=== PATIENT | female | born 1935 | race Caucasian/White ===

== ENCOUNTER → 2017-06-16 10:06 | Outpatient (CLI) | payer MEDICARE, SELFPAY ==
[2017-06-16 10:08] VITALS: BP 129/67; PULSE 86; RESP 18; TEMP 36.6; O2SAT 99; BMI 24.2
== END ==
PROVIDERS: Family Provider Family Medicine; PCP Family Medicine; Visit Provider Internal Medicine Rheumatology
DX: M06.9 Rheumatoid arthritis, unspecified (principal)
CPT/HCPCS: 96413; J7050; J0129

== ENCOUNTER → 2017-06-25 11:41 | Outpatient (CLI) | payer MEDICARE, SELFPAY ==
--- NOTE | 2017-06-25 11:44 | HPBI_ITS ---
MAMMOGRAPHY - UNILATERAL DIAGNOSTIC: LEFT BREAST REASON FOR EXAM: Female, 81 years old. Prior right mastectomy and radiation treatment. PERTINENT HISTORY: Personal history of breast cancer. TECHNIQUE: Digital unilateral breast jelena (3D mammographic acquisition) in the CC and MLO projections. 2-D mediolateral oblique (MLO) and craniocaudad (CC) views of both breasts were obtained. CAD: Full Field Digital Mammography with Computer Added Detection was performed. COMPARISON: Comparison is made with prior study dated June 23, 2016 and June 21, 2015. FINDINGS: Breast Composition: There are scattered areas of fibroglandular density. There are no dominant masses or suspicious calcifications. A port is seen overlying the medial axillary region of the left breast. No other significant abnormalities are identified. There has been no significant change since the prior study. [facility]CRN W/CAD IMPRESSION: Stable unilateral diagnostic mammogram. One year follow-up mammogram recommended. (A) ASSESSMENT CATEGORY: BIRADS Category 2: Benign. A letter regarding these results will be sent to the patient by the facility within 30 days. Approximately 10% of breast cancers are not detected by mammography. A normal mammogram should not delay biopsy of a clinically suspicious abnormality. Electronically Signed: Aneudy Cardenas MD at 14:11 EST Tel [phone], Service support ,
== END ==
PROVIDERS: Family Provider Family Medicine; PCP Family Medicine; Visit Provider Nurse Practitioner Family
DX: Z13.1 Encounter for screening for diabetes mellitus (principal); Z85.3 Personal history of malignant neoplasm of breast
CPT/HCPCS: 77061; 77067; G0279

== ENCOUNTER → 2017-06-25 12:27 | Outpatient (CLI) | payer MEDICARE, SELFPAY ==
[2017-06-25 13:56] LABS: Absolute Neutrophil Count 3.6 X10^3/uL (2.0-7.7); Basophil# 0.01 X10^3/uL; Basophil% 0.2 % (0-1); Eosinophil# 0.09 X10^3/uL; Eosinophils% 1.7 % (0-5); Hematocrit 37.4 % (37-47); Hemoglobin 12.5 g/dl (12.0-15.0); Lymphocyte % 17.3 % (19-41); Mean Corp Hgb Conc 33.4 g/gl (32-36); Mean Corpuscular Hgb 29.9 pg (27.0-32.0); Mean Corpuscular Volume 89.5 fL (81-99); Mean Platelet Vol. 11.2 fl (6.2-12.0); Monocyte# 0.61 X10^3/uL; Monocyte% 11.7 % (0-10); Neutrophil # 3.59 X10^3/uL (2.7-7.7); Neutrophil % 69.1 % (47-70); Platelet Count 180 K/mm3 (150-450); RBC Distribution Width CV 13.5 % (11.6-14.6); RBC Distribution Width SD 43.2 fl (35.1-43.9); Red Blood Count 4.18 M/mm3 (4.2-5.4); White Blood Count 5.2 K/mm3 (4.4-11.0)
[2017-06-25 13:59] LABS: POSITIVE COUNT NO; POSITIVE DIFFERENTIAL NO; POSITIVE MORPHOLOGY NO
[2017-06-25 14:27] LABS: ALB/GLOB Ratio 1.1 RATIO (0.9-2.4); AST(SGOT) 18 U/L (15-37); Alanine Aminotransfer ALT/SGPT 21 U/L (13-56); Albumin, Serum 3.6 g/dL (3.2-5.0); Alkaline Phosphatase 61 U/L (45-117); Anion Gap 6 (5-15); BUN 26 mg/dL (7-18); BUN/Creat Ratio 39.9 RATIO (10-20); Calcium,Total 9.4 mg/dL (8.5-10.1); Chloride 107 mmol/L (98-107); Creatinine, Serum 0.65 mg/dL (0.55-1.02); EST Glomerular Filtration Rate 93 mL/min (>60); Est Glom Filt Rate - Afr Amer 112 mL/min (>60); Globulin 3.2 g/dL (2.2-4.2); Glucose 90 mg/dL (74-106); Potassium 4.2 mmol/L (3.5-5.1); Protein, Total 6.8 g/dL (6.4-8.2); Sodium Level 143 mmol/L (136-145)
== END ==
PROVIDERS: Family Provider Family Medicine; PCP Family Medicine; Visit Provider Internal Medicine Rheumatology
DX: M05.70 Rheumatoid arthritis with rheumatoid factor of unspecified site without organ or systems involvement (principal); M50.30 Other cervical disc degeneration, unspecified cervical region; Z85.3 Personal history of malignant neoplasm of breast; Z90.12 Acquired absence of left breast and nipple; Z79.899 Other long term (current) drug therapy; Z12.31 Encounter for screening mammogram for malignant neoplasm of breast; Z13.1 Encounter for screening for diabetes mellitus
CPT/HCPCS: 36415; 77061; 77067; 80053; 85025; G0279

== ENCOUNTER → 2017-07-14 10:55 | Outpatient (CLI) | payer MEDICARE, SELFPAY ==
[2017-07-14 10:59] VITALS: BP 134/64; PULSE 84; RESP 18; TEMP 36.7; O2SAT 99; BMI 24.2
== END ==
PROVIDERS: Family Provider Family Medicine; PCP Family Medicine; Visit Provider Internal Medicine Rheumatology
DX: M06.9 Rheumatoid arthritis, unspecified (principal)
CPT/HCPCS: 96413; J7050; A4216; J0129

== ENCOUNTER 2017-07-19 14:28 | Emergency (ER) | payer MEDICARE, SELFPAY ==
[2017-07-19 14:30] VITALS: BP 161/70; PULSE 86; RESP 16; TEMP 36.5; O2SAT 98; BMI 26.3
--- NOTE | 2017-07-19 14:58 | CT_ITS ---
STUDY: CT BRAIN WITHOUT CONTRAST REASON FOR EXAM: Female, 81 years old. Nasal laceration following a fall. History of breast cancer. RADIATION DOSAGE (If Supplied By Facility): CTDIvol = ( 44.99 ) mGy, DLP = ( 745.49 ) mGycm TECHNIQUE: Transaxial CT imaging of the brain was performed without administration of intravenous contrast material. Individualized dose optimization techniques were used for this CT. COMPARISON: None. FINDINGS: Normal soft tissue structures. Normal calvarium. There is mild cerebral atrophy with widening of the extra-axial spaces and ventricular dilatation. Normal white matter tracts of the cerebral hemispheres. Normal basal ganglia and thalami. Normal brainstem. Normal cerebellum. There is no intracranial hemorrhage. There are no findings of an acute ischemic infarction. Atherosclerotic calcification of the cavernous portions of the internal carotid arteries bilaterally. Nondisplaced nasal fracture. CT/Brain/Head without Contrast IMPRESSION: Chronic involutional changes of the brain. Nondisplaced nasal fracture. Electronically Signed: Aneudy Cardenas MD at 15:51 EDT Tel [phone], Service support ,
[2017-07-19] MEDS: fentaNYL 100 MCG/2 ML Ampul 50 MCG IV (15:16)
--- NOTE | 2017-07-19 15:40 | RAD_ITS ---
STUDY: X-RAY - RIGHT SHOULDER REASON FOR EXAM: Female, 81 years old. Fall, shoulder pain. TECHNIQUE: 1 frontal view(s) of the shoulder. COMPARISON: Portable AP erect chest x-ray September 23, 2013. FINDINGS: There is an medial dislocation of the glenohumeral articulation. 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 Normal acromion. Normal humeral head and visualized proximal humerus. Mild periarticular spurring of the glenoid noted. Surgical clips again seen in the soft tissues of the right lateral chest wall. Small lucency at the superior interface of the greater tubercle and humeral head raises question of a cortical impaction fracture. Normal visualized pulmonary apex. RAD/Shoulder min 2 Views IMPRESSION: Medial dislocation of the shoulder with question of small cortical impaction fracture at the interface of the greater tubercle and humeral head. Electronically Signed: Osvaldo Rebolledo MD at 16:18 EDT , Service support ,
[2017-07-19] MEDS: Diphth,Pertuss(Acell),Tet Vac 0.5 ML Vial IM (15:50)
[2017-07-19 16:36] VITALS: BP 144/60; BP 153/54; BP 162/65; PULSE 88; PULSE 90; PULSE 91; RESP 13; RESP 16; RESP 23; O2SAT 100
--- NOTE | 2017-07-19 16:37 | RAD_ITS ---
STUDY: X-RAY - RIGHT SHOULDER REASON FOR EXAM: Female, 81 years old. Post reduction. TECHNIQUE: 2 view(s) of the shoulder. COMPARISON: Frontal view of the right shoulder 1537 hours. FINDINGS: Post reduction, the glenohumeral articulation is return to anatomic alignment. There is stable minor degenerative arthrosis of the acromioclavicular joint. Normal acromion. Normal humeral head and visualized proximal humerus. There are degenerative changes of the visualized lower cervical spine. There is no demonstrated fracture. Normal visualized pulmonary apex. Surgical clips again seen in the soft tissues of the right lateral chest wall. A left chest wall MediPort is noted, its catheter tip in the low superior vena cava. RAD/Shoulder min 2 Views IMPRESSION: Right shoulder joint in anatomic alignment postreduction. No demonstrated fracture. Electronically Signed: Osvaldo Rebolledo MD at 17:44 EDT , Service support ,
[2017-07-19 16:51] VITALS: BP 138/74; PULSE 90; RESP 14; O2SAT 99
[2017-07-19] MEDS: Propofol 200 MG/20 ML Vial IV BOLUS (16:55)
--- NOTE | 2017-07-19 17:08 | ED.VISSUMM ---
- ER Visit Summary Date of Service: 07/19/17 Chief Complaint: Fall History of Present Illness: The patient is a [address] Hall. She reports that she tripped walking through the parking lot. She reports that she did hit her face, but did not have a loss of consciousness. She has right shoulder pain that is 5 out of 10 at rest and 10 out of 10 with movement. She has left knee pain is 1 out of 10. She denies any neck, back, wrist, or hip pain. She is unsure when her last tetanus shot was. Physical Examination: Vitals: Stable. Afebrile. Face: Abrasion over the proximal half of her nose with 1 cm laceration over the bridge of her nose. No active bleeding. No septal hematoma. Neck: No vertebral tenderness. Full ROM without difficulty. Cleared by NEXUS criteria. Back: No vertebral tenderness. General: A&O x 3. NAD. Cardiovascular exam: Regular rate and rhythm, no murmur, rub or gallop. Respiratory exam: Chest nontender. No crepitus. Clear to auscultation bilaterally. No wheezes or stridor. Abdominal exam: Soft, nontender, nondistended, normal bowel sounds. No pain in RUQ or LUQ specifically. No peritoneal signs. Extremity: Severe tenderness palpation over her right shoulder with an obvious deformity. He is neurovascular intact distally. Test Results: CT brain shows a nondisplaced nasal fracture and chronic changes. No intracranial hemorrhage. Right shoulder x-ray shows an anterior dislocation without fracture. Repeat x-ray shows a reduction. Emergency Department Course and Treatment: Patient was given a dose of fentanyl IV. She then had procedural sedation undertaken with propofol and her shoulder was reduced. She tolerated this well. She also had a laceration repair while she was sedated. Treatment Plan: She will be discharged instructions to follow-up Dr. Wilian Jackson 1 week for another exam. Placed on Percocet and Colace at home. Return to the emergency department for any worsening symptoms. Disposition: To home in improved and stable condition. Impression: 1. Fall. 2. Right shoulder dislocation. 3. Laceration of nose, 1 cm, repaired. 4. Procedural sedation. 5. Reduction right shoulder. Procedure note: Wound was cleansed with chlorhexidine soap. Anesthetized with 1% lidocaine without epinephrine. Copiously irrigated with normal saline. Wound was explored there is no foreign material present. It was closed with 3 simple interrupted 5-0 rapid Vicryl sutures. The patient tolerated it well. This note was generated with [employer] dictation software. It may contain incorrect words, spelling, and punctuation that were not noted in review of the chart prior to signing ED Disposition - Plan for ED Patient: Disposition: [facility] Chief Complaint: Fall Instructions: ED Dislocation Shoulder Redu Prescriptions: Oxycodone HCl/Acetaminophen [Percocet 5/325] 1 tablet PO Q6H PRN PRN 5 Days #20 tablet PRN Reason: Pain Docusate Sodium [Colace] 100 mg PO DAILY #20 capsule Referrals: Wilian Jackson MD [STAFF PHYSICIAN] - 1 Week
[2017-07-19 17:54] VITALS: BP 135/80; PULSE 86; RESP 12; O2SAT 100
== END 2017-07-19 18:04 | disposition short-term general hospital (02) ==
PROVIDERS: Emergency Provider Emergency Medicine; Family Provider Family Medicine; PCP Family Medicine
DX: S43.084A Other dislocation of right shoulder joint, initial encounter (principal); S02.2XXA Fracture of nasal bones, initial encounter for closed fracture; S01.21XA Laceration without foreign body of nose, initial encounter; W18.30XA Fall on same level, unspecified, initial encounter; Y93.01 Activity, walking, marching and hiking; Y92.481 Parking lot as the place of occurrence of the external cause; M06.9 Rheumatoid arthritis, unspecified; Z79.899 Other long term (current) drug therapy
CPT/HCPCS: 12011; 23650; 70450; 73030; 90715; 96374; 99152; 99285; J7030; A4216

== ENCOUNTER → 2017-08-11 | Outpatient (CLI) | payer MEDICARE, SELFPAY ==
[2017-08-11 10:47] VITALS: BP 139/64; PULSE 86; RESP 16; TEMP 36.8; O2SAT 99; BMI 24.2
== END | disposition home or self-care (01) ==
PROVIDERS: Family Provider Family Medicine; PCP Family Medicine; Visit Provider Internal Medicine Rheumatology
DX: M06.9 Rheumatoid arthritis, unspecified (principal)
CPT/HCPCS: 96413; J7050; A4216; J0129

== ENCOUNTER 2017-09-01 12:30 | Outpatient (RCR) | payer MEDICARE, SELFPAY ==
--- NOTE | 2017-07-28 14:05 | HP.PTEVAL_ITS ---
Patient's Visit Information ROBERTO RASMUSSEN is a 81 year old F referred to Physical Therapy by MD NEMESIO King with a diagnosis of R ant shoulder dislocation. Date of Evaluation: 07/28/17 Physical Therapist: David Fernandes, PT, - Visit Plan Frequency: 2-3x /Week Duration: 4-6 Weeks Plan: R shoulder pulleys, AROM/MOBS, scap stab ex's, rot cuff strengthening, and HEP - Subjective Subjective: Pt reports she slipped in [place] approximately 1 week ago which resulted in her landing on her face and R shoulder. Pt reports multiple contusions to nose and face, and also notes she dislocated her R shoulder. 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 Pt reports she was in a shoulder wrap for 3 days, and then has been out since. Pt reports she was told to try PT first, and then see if an MRI was necessary. Pt reports her shoulder has not really improved since DOI. Pt notes sleep diff secondary to pain. Pt is R hand dom. Pt notes some numbness in R UE since DOI. Pt reports she is limited with all IADL's secondary to lack of ROM. - Pain R shoulder Pain Intensity (Out of 10): 0 Pain Intensity Range: 3 - Objective Neuro: B UE sensation is WNL to light touch. B bicpes reflex= 2/3. Palpation: Pt is not sore with palpation to R shoulder. No obvious deformities presesent at this time. ROM: L shoulder flex= 155, abd= 165, ER= 65, IR WNL; R shoulder flex= 25, abd= 0, ER= 50, IR severely limited. MMT: L shoulder 5/5 throughout while R shoulder 1/5 and painful. Special test: Unable to assess other than a pos drop arm test - Goals Goal 1:: Decrease R shoulder pain x 50% to aid with sleep Goal Time Frame: 4-6 Weeks Goal 2:: Increase R shoulder strength x 1 grade to aid with IADL's Goal Time Frame: 4-6 Weeks Goal 3:: Increase R shoulder flex and abd ROM x 50 degrees to aid with overhead lifting Goal Time Frame: 4-6 Weeks Goal 4:: I with HEP Goal Time Frame: 4-6 Weeks - Rehabilitation Potential Physical Therapy Diagnosis: R shoulder pain, weakness, and limited ROM secondary to R shoulder dislocation Rehabilitation Potential: Good - Anticipated Interventions Thank you for the opportunity to evaluate your patient. For Medicare and Medicare HMO plans, please review the plan of care and approve it. It will need to be FAXED BACK to us at [phone] for Medicare purposes. Please let me know if there are questions or concerns regarding this plan of care. Physician Signature: Date:
--- NOTE | 2017-09-07 09:19 | HP.PT.NRP ---
HP - Discharge Summary (1) - Patient Information ROBERTO RASMUSSEN was seen in my office for initial evaluation on 07/28/17. The following Plan of Care was established for this patient: Initial Frequency: 2-3x /Week Initial Duration: 4-6 Weeks This patient was last seen in our office . Pertinent comments regarding their Physical therapy will appear below: Pt phoned the clinic on todays date noting that she wanted to cancel her remaining appointments and just exercise from her home. Pt is therefore discontinued at this time. At this point I will be discontinuing this patient from physical therapy. I would be happy to see this patient again in the future if found appropriate by the physician. Thank you! David Fernandes, PT,
== END 2017-09-01 19:00 | disposition home or self-care (01) ==
LOC: PT 12:30
PROVIDERS: Family Provider Family Medicine; PCP Family Medicine; Visit Provider Specialist
DX: S43.014D Anterior dislocation of right humerus, subsequent encounter (principal); M06.9 Rheumatoid arthritis, unspecified
CPT/HCPCS: 96413; 97110; 97161; 97530; J7050; A4216; J0129

== ENCOUNTER → 2017-09-08 11:01 | Outpatient (CLI) | payer MEDICARE, SELFPAY ==
[2017-09-08 11:03] VITALS: BP 139/75; PULSE 78; RESP 16; TEMP 36.4; O2SAT 95; BMI 23.6
== END ==
PROVIDERS: Family Provider Family Medicine; PCP Family Medicine; Visit Provider Internal Medicine Rheumatology
DX: M06.9 Rheumatoid arthritis, unspecified (principal)
CPT/HCPCS: 96413; J7050; A4216; J0129

== ENCOUNTER → 2017-09-15 11:19 | Outpatient (CLI) | payer MEDICARE, SELFPAY ==
[2017-09-15 14:26] LABS: Absolute Lymphocyte Count 0.98 X10^3/ul (0.83-4.51); Absolute Neutrophil Count 2.4 X10^3/uL (2.0-7.7); Basophil# 0.01 X10^3/uL; Basophil% 0.3 % (0-1); Eosinophil# 0.07 X10^3/uL; Eosinophils% 1.8 % (0-5); Hematocrit 39.5 % (37-47); Hemoglobin 13.1 g/dl (12.0-15.0); Lymphocyte # 0.98 X10^3/ul (4.0); Lymphocyte % 25.1 % (19-41); Mean Corp Hgb Conc 33.2 g/gl (32-36); Mean Corpuscular Hgb 30.2 pg (27.0-32.0); Mean Platelet Vol. 11.1 fl (6.2-12.0); Monocyte# 0.41 X10^3/uL; Monocyte% 10.5 % (0-10); Neutrophil # 2.44 X10^3/uL (2.7-7.7); Neutrophil % 62.3 % (47-70); Platelet Count 180 K/mm3 (150-450); Red Blood Count 4.34 M/mm3 (4.2-5.4); White Blood Count 3.9 K/mm3 (4.4-11.0)
[2017-09-15 14:27] LABS: POSITIVE COUNT NO; POSITIVE DIFFERENTIAL NO; POSITIVE MORPHOLOGY NO
[2017-09-15 14:46] LABS: ALB/GLOB Ratio 1.2 RATIO (0.9-2.4); AST(SGOT) 20 U/L (15-37); Alanine Aminotransfer ALT/SGPT 16 U/L (13-56); Albumin, Serum 3.8 g/dL (3.2-5.0); Alkaline Phosphatase 55 U/L (45-117); Anion Gap 5 (5-15); BUN 20 mg/dL (7-18); BUN/Creat Ratio 27.1 RATIO (10-20); Calcium,Total 9.1 mg/dL (8.5-10.1); Chloride 107 mmol/L (98-107); Creatinine, Serum 0.74 mg/dL (0.55-1.02); EST Glomerular Filtration Rate 80 mL/min (>60); Est Glom Filt Rate - Afr Amer 97 mL/min (>60); Globulin 3.2 g/dL (2.2-4.2); Glucose 89 mg/dL (74-106); Potassium 4.3 mmol/L (3.5-5.1); Sodium Level 140 mmol/L (136-145)
== END ==
PROVIDERS: Family Provider Family Medicine; PCP Family Medicine; Visit Provider Internal Medicine Rheumatology
DX: M05.70 Rheumatoid arthritis with rheumatoid factor of unspecified site without organ or systems involvement (principal); M50.30 Other cervical disc degeneration, unspecified cervical region; Z85.3 Personal history of malignant neoplasm of breast; Z79.899 Other long term (current) drug therapy
CPT/HCPCS: 36415; 80053; 85025

== ENCOUNTER → 2017-10-06 10:30 | Outpatient (CLI) | payer MEDICARE, SELFPAY ==
--- NOTE | 2017-10-06 10:30 | DT_ITS ---
This patient was seen during an EMR downtime October 04, 2017 - October 11, 2017. This patient may have a combination of paper and electronic documentation or all paper documentation. All documentation is viewable within the e-chart portion of [employer] for each patient visit.
== END ==
PROVIDERS: Family Provider Family Medicine; PCP Family Medicine; Visit Provider Internal Medicine Rheumatology
DX: M06.9 Rheumatoid arthritis, unspecified (principal)
CPT/HCPCS: J7040; A4216; J0129

== ENCOUNTER → 2017-11-02 08:48 | Outpatient (CLI) | payer MEDICARE, SELFPAY ==
[2017-11-02 08:55] VITALS: BP 136/73; PULSE 84; RESP 18; TEMP 36.6; O2SAT 99; BMI 23.4
== END ==
PROVIDERS: Family Provider Family Medicine; PCP Family Medicine; Visit Provider Internal Medicine Rheumatology
DX: M06.9 Rheumatoid arthritis, unspecified (principal)
CPT/HCPCS: 96413; J7050; A4216; J0129

== ENCOUNTER → 2017-12-01 10:48 | Outpatient (CLI) | payer MEDICARE, SELFPAY ==
[2017-12-01 11:13] VITALS: BP 137/73; PULSE 84; RESP 18; TEMP 37; O2SAT 98; BMI 23.4
[2017-12-01 11:38] LABS: Absolute Lymphocyte Count 0.98 X10^3/ul (0.83-4.51); Absolute Neutrophil Count 2.2 X10^3/uL (2.0-7.7); Basophil# 0.01 X10^3/uL; Basophil% 0.3 % (0-1); Eosinophils% 2.7 % (0-5); Hematocrit 37.6 % (37-47); Hemoglobin 12.4 g/dl (12.0-15.0); Lymphocyte # 0.98 X10^3/ul (4.0); Lymphocyte % 26.7 % (19-41); Mean Corpuscular Hgb 29.9 pg (27.0-32.0); Mean Corpuscular Volume 90.6 fL (81-99); Mean Platelet Vol. 10.8 fl (6.2-12.0); Monocyte# 0.38 X10^3/uL; Monocyte% 10.4 % (0-10); Neutrophil % 59.9 % (47-70); POSITIVE COUNT NO; POSITIVE DIFFERENTIAL NO; POSITIVE MORPHOLOGY NO; Platelet Count 144 K/mm3 (150-450); RBC Distribution Width CV 13.9 % (11.6-14.6); RBC Distribution Width SD 45.9 fl (35.1-43.9); Red Blood Count 4.15 M/mm3 (4.2-5.4); White Blood Count 3.7 K/mm3 (4.4-11.0)
[2017-12-01 11:50] LABS: ALB/GLOB Ratio 1.2 RATIO (0.9-2.4); AST(SGOT) 19 U/L (15-37); Alanine Aminotransfer ALT/SGPT 19 U/L (13-56); Albumin, Serum 3.7 g/dL (3.2-5.0); Alkaline Phosphatase 50 U/L (45-117); Anion Gap 5 (5-15); BUN 18 mg/dL (7-18); BUN/Creat Ratio 21.7 RATIO (10-20); Calcium,Total 9.1 mg/dL (8.5-10.1); Chloride 107 mmol/L (98-107); Creatinine, Serum 0.83 mg/dL (0.55-1.02); EST Glomerular Filtration Rate 70 mL/min (>60); Est Glom Filt Rate - Afr Amer 85 mL/min (>60); Estimated Creatinine Clearance 47.83 ml/min; Glucose 98 mg/dL (74-106); Protein, Total 6.7 g/dL (6.4-8.2); Sodium Level 142 mmol/L (136-145)
== END ==
PROVIDERS: Family Provider Family Medicine; PCP Family Medicine; Visit Provider Internal Medicine Rheumatology
DX: M05.70 Rheumatoid arthritis with rheumatoid factor of unspecified site without organ or systems involvement (principal); Z79.899 Other long term (current) drug therapy; M50.30 Other cervical disc degeneration, unspecified cervical region; Z85.3 Personal history of malignant neoplasm of breast
CPT/HCPCS: 80053; 85025; 96413; J7050; A4216; J0129

== ENCOUNTER → 2017-12-29 10:52 | Outpatient (CLI) | payer MEDICARE, SELFPAY ==
[2017-12-29 12:01] VITALS: BP 133/61; PULSE 77; RESP 16; TEMP 36.6; O2SAT 99; BMI 23.6
== END ==
PROVIDERS: Family Provider Family Medicine; PCP Family Medicine; Visit Provider Internal Medicine Rheumatology
DX: M06.9 Rheumatoid arthritis, unspecified (principal)
CPT/HCPCS: 96413; J7050; A4216; J0129

== ENCOUNTER → 2018-01-26 10:43 | Outpatient (CLI) | payer MEDICARE, SELFPAY ==
[2018-01-26 10:51] VITALS: BP 127/61; PULSE 90; RESP 16; TEMP 36.8; O2SAT 100; BMI 23.2
== END ==
PROVIDERS: Family Provider Family Medicine; PCP Family Medicine; Visit Provider Internal Medicine Rheumatology
DX: M06.9 Rheumatoid arthritis, unspecified (principal)
CPT/HCPCS: 96413; A4216; J0129

== ENCOUNTER → 2018-02-23 10:44 | Outpatient (CLI) | payer MEDICARE, SELFPAY ==
[2018-02-23 10:57] VITALS: BP 127/77; PULSE 90; RESP 18; TEMP 36.5; O2SAT 98; BMI 23.4
== END ==
PROVIDERS: Family Provider Family Medicine; PCP Family Medicine; Referring Provider Internal Medicine Rheumatology; Visit Provider Internal Medicine Rheumatology
DX: M06.9 Rheumatoid arthritis, unspecified (principal)
CPT/HCPCS: 96413; J7050; A4216; J0129

== ENCOUNTER → 2018-03-07 11:41 | Outpatient (CLI) | payer MEDICARE, SELFPAY ==
[2018-03-07 14:06] LABS: Absolute Neutrophil Count 2.8 X10^3/uL (2.0-7.7); Basophil# 0.01 X10^3/uL; Basophil% 0.2 % (0-1); Eosinophil# 0.07 X10^3/uL; Eosinophils% 1.6 % (0-5); Hematocrit 39.1 % (37-47); Mean Corp Hgb Conc 33.2 g/gl (32-36); Mean Corpuscular Hgb 30.8 pg (27.0-32.0); Mean Corpuscular Volume 92.7 fL (81-99); Mean Platelet Vol. 11.1 fl (6.2-12.0); Monocyte# 0.48 X10^3/uL; Monocyte% 11.1 % (0-10); Neutrophil # 2.78 X10^3/uL (2.7-7.7); Neutrophil % 64.1 % (47-70); Platelet Count 167 K/mm3 (150-450); RBC Distribution Width CV 13.4 % (11.6-14.6); RBC Distribution Width SD 44.2 fl (35.1-43.9); Red Blood Count 4.22 M/mm3 (4.2-5.4); White Blood Count 4.3 K/mm3 (4.4-11.0)
[2018-03-07 14:07] LABS: POSITIVE COUNT NO; POSITIVE DIFFERENTIAL NO; POSITIVE MORPHOLOGY NO
[2018-03-07 14:18] LABS: ALB/GLOB Ratio 1.2 RATIO (0.9-2.4); AST(SGOT) 23 U/L (15-37); Alanine Aminotransfer ALT/SGPT 24 U/L (13-56); Albumin, Serum 3.6 g/dL (3.2-5.0); Alkaline Phosphatase 53 U/L (45-117); Anion Gap 8 (5-15); BUN 26 mg/dL (7-18); BUN/Creat Ratio 31.7 RATIO (10-20); Calcium,Total 9.2 mg/dL (8.5-10.1); Chloride 105 mmol/L (98-107); Creatinine, Serum 0.82 mg/dL (0.55-1.02); EST Glomerular Filtration Rate 71 mL/min (>60); Est Glom Filt Rate - Afr Amer 86 mL/min (>60); Glucose 96 mg/dL (74-106); Potassium 4.6 mmol/L (3.5-5.1); Protein, Total 6.6 g/dL (6.4-8.2); Sodium Level 140 mmol/L (136-145)
== END ==
PROVIDERS: Family Provider Family Medicine; PCP Family Medicine; Referring Provider Internal Medicine Rheumatology; Visit Provider Internal Medicine Rheumatology
DX: M05.70 Rheumatoid arthritis with rheumatoid factor of unspecified site without organ or systems involvement (principal); M50.30 Other cervical disc degeneration, unspecified cervical region; Z85.3 Personal history of malignant neoplasm of breast; Z79.899 Other long term (current) drug therapy
CPT/HCPCS: 36415; 80053; 85025

== ENCOUNTER → 2018-03-23 10:46 | Outpatient (CLI) | payer MEDICARE, SELFPAY ==
[2018-03-23 11:22] VITALS: BP 141/68; PULSE 86; RESP 16; TEMP 36.4; O2SAT 100; BMI 23.4
== END ==
PROVIDERS: Family Provider Family Medicine; PCP Family Medicine; Referring Provider Internal Medicine Rheumatology; Visit Provider Internal Medicine Rheumatology
DX: M06.9 Rheumatoid arthritis, unspecified (principal)
CPT/HCPCS: 96413; J7050; A4216; J0129

== ENCOUNTER → 2018-04-20 11:01 | Outpatient (CLI) | payer MEDICARE, SELFPAY ==
[2018-03-23 11:22] VITALS: BMI 23.4
[2018-04-11 13:37] VITALS: BMI 24.0
[2018-04-20 11:16] LABS: ALB/GLOB Ratio 1.2 RATIO (0.9-2.4); AST(SGOT) 20 U/L (15-37); Alanine Aminotransfer ALT/SGPT 20 U/L (13-56); Albumin, Serum 3.7 g/dL (3.2-5.0); Alkaline Phosphatase 58 U/L (45-117); Anion Gap 7 (5-15); BUN 24 mg/dL (7-18); BUN/Creat Ratio 29.5 RATIO (10-20); Calcium,Total 8.7 mg/dL (8.5-10.1); Chloride 106 mmol/L (98-107); Creatinine, Serum 0.81 mg/dL (0.55-1.02); EST Glomerular Filtration Rate 72 mL/min (>60); Est Glom Filt Rate - Afr Amer 87 mL/min (>60); Globulin 3.1 g/dL (2.2-4.2); Glucose 99 mg/dL (74-106); Magnesium 1.8 mg/dL (1.6-2.6); Phosphorus 2.2 mg/dL (2.5-4.9); Potassium 4.4 mmol/L (3.5-5.1); Protein, Total 6.8 g/dL (6.4-8.2); Sodium Level 139 mmol/L (136-145)
[2018-04-20 18:46] LABS: Xtra Tube EP Lab EXTRA TUBE
--- OUTSIDE RECORDS SUMMARY | 2018-07-22 15:07 | XMS RPT_ITS ---
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 Acid 10 mg/mL Soln Take 1 mg by mouth twice daily. leucovorin 5 mg tablet Take 5 mg by mouth once each week. Omeprazole 40 mg capsule Take 40 mg by mouth once daily. ABATACEPT/MALTOSE (ORENCIA INTRAVEN.) Inject intravenously q 4 WEEKS. NAPROXEN SODIUM (ALEVE ORAL) Take by mouth twice daily. MULTI-VITAMIN ORAL Take by mouth. Vitamin Z28-Ymrmeye B1 5.5-12.5 mg-mcg/5 mL Liqd Take by mouth. CALCIUM CARBONATE (CALCIUM 600 ORAL) Take by mouth twice daily. Dysart-3 Fatty Acids-Vitamin E (FISH OIL) 1,000 mg cap Take 1 capsule by mouth. Vitamin E 400 unit Tab Take by mouth once daily. DOXEPIN 25 MG CAP Take one(1) tablet daily. Methotrexate Sodium (METHOTREXATE, ANTI-RHEUMATIC,) 2.5 mg tablet Take 15 mg by mouth once daily. No current facility-administered medications for this visit. ALLERGIES No Known Allergies Objective: Patient presents weightbearing as tolerated in slip on shoes. She has ulnar deviation of the fingers bilaterally. Problem focus examination to the left lower extremity: Incision site is well healed. Mild edema to ankle. + varicosities. No erythema. No drainage. No lymphangitis. No surrounding cellulitis. All incisions healed at this time No tenderness to palpation overlying medial and lateral malleoli left. Mild tenderness overlying plate at lateral ankle. Ankle joint ROM is mildly decreased and nonpainful. No pain to palpation of ankle joint or ankle gutters. Patient has no pain to palpation of calf. The calf is soft, supple and nontender without evidence of DVT. Negative Anderson's test. Satisfactory alignment is noted. Pedal pulses are palpable. Capillary refill time is less than two seconds to all toes. Sensation is intact to light touch. Radiographs: 3 views left ankle were obtained and evaluated. Radiographic evaluation: Hardware intact without breakage or loosening noted. Medial malleolar fracture appears well healed. Good alignment of fracture fragments with interval consolidation noted across comminuted fibula. Fibula out to length. Ankle mortise WNL. Assessment: S/p ORIF left ankle fracture Plan: The patient was educated on clinical examination findings, postoperative prognosis and protocol. All questions were answered to patient's apparent satisfaction. - Xray reviewed with patient - Activity as tolerated -Follow up as needed Jose Lakhani DPM PROGRESS Observed: 10/29/2017 Status: COMPLETED Source: [place] 1:09 PM [facility] REPOSITORY HNO ID: [id number] Author: Alexis Rose (Tech) Service: (none) Author Type: Customer Loyalty Representative Type: Progress Notes Filed: 10/29/2017 1:51 PM Note Text: REVIEW OF SYSTEMS: GENERAL: Well developed, well nourished. No acute distress PAIN: Negative for pain, history of chronic pain or current treatment for chronic pain conditions CARDIOVASCULAR: Negative for chest pain, leg swelling and palpations. MSK: Negative for joint pain, swelling, back pain, muscle pain. SKIN: Negative for lesions, rash, itching, metal sensitivity NEURO: Negative for seizure, trauma, numbness/tingling of extremities. ENDOCRINE: Negative for Diabetes Type 1 and Type 2 HEMATOLOGY: Negative for excessive bleeding, clots, bleeding disorders. CNOV Observed: 10/29/2017 Status: COMPLETED Source: [place] 1:00 PM [facility] REPOSITORY Office Visit (AGPOB1) ROBERTO RASMUSSEN ([id number]) 1935 F Date Time Provider Department 10/29/17 1:00 PM JOSE LAKHANI AGB1 During your visit today, we recorded the following information about you: Respiration Weight Height 25/minute 67.1 kg 1.676 m Neeraj Mayorga 10/29/2017 1:51 PM Signed REVIEW OF SYSTEMS: GENERAL: Well developed, well nourished. No acute distress PAIN: Negative for pain, history of chronic pain or current treatment for chronic pain conditions CARDIOVASCULAR: Negative for chest pain, leg swelling and palpations. MSK: Negative for joint pain, swelling, back pain, muscle pain. SKIN: Negative for lesions, rash, itching, metal sensitivity NEURO: Negative for seizure, trauma, numbness/tingling of extremities. ENDOCRINE: Negative for Diabetes Type 1 and Type 2 HEMATOLOGY: Negative for excessive bleeding, clots, bleeding disorders. Jose Lakhani DPM 10/29/2017 1:51 PM Signed This 82 year old female presents today s/p ORIF left ankle fracture. Date of surgery 04/20/17. Patient approximately 6 months post op. Patient states that is doing well. States that generally has no pain to the ankle. Admits to mild [ain to the plate on the outside of the ankle if she bumps it but otherwise nonpainful. Denies nausea, vomiting, fever, chills, shortness of breath, chest pain, or calf pain. Relates no other complaints. PAST MEDICAL HISTORY Diagnosis Date - Closed right ankle fracture - Malignant neoplasm of breast (female), unspecified site - Mammographic microcalcification 06/2007 left breast , BIRADS 4 - Rheumatoid arthritis(714.0) Current Outpatient Prescriptions: doxycycline monohydrate 100 mg tablet leucovorin (LEUCOVORIN) [address] (PROTONIX) 40 mg tablet acetaminophen (TYLENOL) 325 mg tablet Take 1 tablet by mouth every 6 hours as needed for Pain or Fever. methotrexate 2.5 mg tablet Take 6 tablets by mouth every Wednesday. aspirin 81 mg chewable tablet Take 1 tablet by mouth once daily. hydroxychloroquine (PLAQUENIL) 200 mg tablet Take 200 mg by mouth once daily. Folic Acid 10 mg/mL Soln Take 1 mg by mouth twice daily. leucovorin 5 mg tablet Take 5 mg by mouth once each week. Omeprazole 40 mg capsule Take 40 mg by mouth once daily. ABATACEPT/MALTOSE (ORENCIA INTRAVEN.) Inject intravenously q 4 WEEKS. NAPROXEN SODIUM (ALEVE ORAL) Take by mouth twice daily. MULTI-VITAMIN ORAL Take by mouth. Vitamin T12-Uvfejvu B1 5.5-12.5 mg-mcg/5 mL Liqd Take by mouth. CALCIUM CARBONATE (CALCIUM 600 ORAL) Take by mouth twice daily. Dysart-3 Fatty Acids-Vitamin E (FISH OIL) 1,000 mg cap Take 1 capsule by mouth. Vitamin E 400 unit Tab Take by mouth once daily. DOXEPIN 25 MG CAP Take one(1) tablet daily. Methotrexate Sodium (METHOTREXATE, ANTI-RHEUMATIC,) 2.5 mg tablet Take 15 mg by mouth once daily. No current facility-administered medications for this visit. ALLERGIES No Known Allergies Objective: Patient presents weightbearing as tolerated in slip on shoes. She has ulnar deviation of the fingers bilaterally. Problem focus examination to the left lower extremity: Incision site is well healed. Mild edema to ankle. + varicosities. No erythema. No drainage. No lymphangitis. No surrounding cellulitis. All incisions healed at this time No tenderness to palpation overlying medial and lateral malleoli left. Mild tenderness overlying plate at lateral ankle. Ankle joint ROM is mildly decreased and nonpainful. No pain to palpation of ankle joint or ankle gutters. Patient has no pain to palpation of calf. The calf is soft, supple and nontender without evidence of DVT. Negative Anderson's test. Satisfactory alignment is noted. Pedal pulses are palpable. Capillary refill time is less than two seconds to all toes. Sensation is intact to light touch. Radiographs: 3 views left ankle were obtained and evaluated. Radiographic evaluation: Hardware intact without breakage or loosening noted. Medial malleolar fracture appears well healed. Good alignment of fracture fragments with interval consolidation noted across comminuted fibula. Fibula out to length. Ankle mortise WNL. Assessment: S/p ORIF left ankle fracture Plan: The patient was educated on clinical examination findings, postoperative prognosis and protocol. All questions were answered to patient's apparent satisfaction. - Xray reviewed with patient - Activity as tolerated -Follow up as needed Jose Lakhani DPM Referring Provider: SELF [200] Allergies As of Date: 10/29/2017 (No Known Allergies) Date Reviewed: 10/29/2017 Reviewed by: Jose Lakhani - Fully Assessed Reason for Visit: Musculoskeletal Problem [69] Cmt: Lt. ankle fx. Primary Visit Diagnosis:Post-operative state [Z98.890] Other Visit Diagnosis:Closed fracture of left ankle with routine healing, subsequent encounter [A30.853P] Order(s):XR ANKLE GENERAL 3V AP/LAT/OBL LT [[id number]] Order #: [id number] Prescriptions as of 10/29/2017 Sig: DOXYCYCLINE MONOHYDRATE 100 M* LEUCOVORIN CALCIUM 15 MG TABL* PANTOPRAZOLE 40 MG TABLET,DEL* ACETAMINOPHEN 325 MG TABLET Take 1 tablet by mouth every * METHOTREXATE SODIUM 2.5 MG TA* Take 6 tablets by mouth every* ASPIRIN 81 MG CHEWABLE TABLET Take 1 tablet by mouth once d* HYDROXYCHLOROQUINE 200 MG TAB* Take 200 mg by mouth once roberta* FOLIC ACID 10 MG/ML INJECTION* Take 1 mg by mouth twice helio* LEUCOVORIN CALCIUM 5 MG TABLET Take 5 mg by mouth once each * OMEPRAZOLE 40 MG CAPSULE,JUAN* Take 40 mg by mouth once helio* ORENCIA INTRAVEN. Inject intravenously q 4 WEE* ALEVE ORAL Take by mouth twice daily. MULTI-VITAMIN ORAL Take by mouth. VITAMIN X95-HXBXRPG B1 5.5 MG* Take by mouth. CALCIUM 600 ORAL Take by mouth twice daily. OMEGA-3 FATTY ACIDS-VITAMIN E* Take 1 capsule by mouth. VITAMIN E 400 UNIT TABLET Take by mouth once daily. * DOXEPIN 25 MG CAPSULE Take one(1) tablet daily. METHOTREXATE SODIUM 2.5 MG TA* Take 15 mg by mouth once helio* Problem List As Of Date 10/29/2017 Noted Resolved RHEUMATOID ARTHRITIS [M06.9] INVALID FOR* POSTMASTECT LYMPHEDEMA [I97.2] INVALID FOR* Ankle fracture [S82.899A] INVALID FOR* Ankle fracture, left, closed, initial encounter*INVALID FOR* More... Disposition: Return if symptoms worsen or fail to improve. Follow-up and Disposition History Recorded Encounter Status:Closed by JOSE LAKHANI DPM on 10/29/17 DOWNTIME REPORT Observed: 10/21/2017 Status: F Source: PAW PAW 12:10 PM [facility] REPOSITORY [facility] Medical Records Department [address] [place] [address] Downtime Report MR#: [id number] Acct: [id number] Name: ROBERTO RASMUSSEN Rep #: [id number] : 1935 82 From: Nabeel Jackson PCP: Teagan Hall MD Status: REG RCR This patient was seen during an EMR downtime October 04, 2017 - October 11, 2017. This patient may have a combination of paper and electronic documentation or all paper documentation. All documentation is viewable within the e-chart portion of [facility] for each patient visit. DOWNTIME REPORT Observed: 10/21/2017 Status: F Source: [place] 12:07 PM [facility] REPOSITORY [facility] Medical Records Department [address] [place] [address] Downtime Report MR#: [id number] Acct: [id number] Name: ROBERTO RASMUSSEN Rep #: [id number] : 1935 82 From: Nabeel Jackson PCP: Teagan Hall MD Status: REG CLI This patient was seen during an EMR downtime October 04, 2017 - October 11, 2017. This patient may have a combination of paper and electronic documentation or all paper documentation. All documentation is viewable within the e-chart portion of [facility] for each patient visit. CBC W/DIFF, AUTOMATED Collected: 10/06/2017 Status: F Source: PAW PAW 10:30 AM [facility] REPOSITORY Order Comment: RESULT(S) PREVIOUSLY REPORTED ON MANUAL REQUISITION DURING DOWNTIME. TYPE CODE TESTS RESULT OUT OF RANGE REFERENCE UNITS LAB L100.1000 4.4-11.0 K/mm3 Low WBC 2.9 LAB L100.1200 4.2-5.4 M/mm3 Normal RBC 4.30 LAB L100.1300 12.0-15.0 g/dl Normal HGB 12.9 LAB L100.1400 37-47 % Normal HCT 39.1 LAB L100.1500 81-99 fL Normal MCV 90.9 LAB L100.1600 27.0-32.0 pg Normal MCH 30.0 LAB L100.1700 32-36 g/gl Normal MCHC 33.0 LAB L100.1810 11.6-14.6 % Normal RDW CV 13.6 LAB L100.1820 35.1-43.9 fl High RDW SD 44.3 LAB L100.1900 150-450 K/mm3 Normal PLT 168 LAB L100.2000 6.2-12.0 fl Normal MPV 11.4 LAB L100.2100 47-70 % Normal NEUT% 51.2 LAB L100.2200 19-41 % Normal LY% 35.8 LAB L100.2300 0-10 % Normal MONO% 9.8 LAB L100.2400 0-5 % Normal EO% 2.5 LAB L100.2500 0-1 % Normal BASO% 0.7 LAB L100.2550 0.0-0.9 % Normal IM GRAN % 0.000 Result Comment: IG% - Immature Granulocytes (promyelocytes, myelocytes and metamyelocytes) > 1% indicates that a LEFT SHIFT is Present. LAB L100.2620 2.0-7.7 X10 3/uL Low Absolute Neut 1.5 LAB L100.2720 0.83-4.51 X10 3/ul Normal Absolute Lymph 1.02 Performed By: #### L100.0100 #### [facility] [address] [place], [address] COMPREHENSIVE METABOLIC Collected: 10/06/2017 Status: F Source: [place] [facility] 10:30 AM [facility] REPOSITORY Order Comment: RESULT(S) PREVIOUSLY REPORTED ON MANUAL REQUISITION DURING DOWNTIME. TYPE CODE TESTS RESULT OUT OF RANGE REFERENCE UNITS LAB L501.0100 74-106 mg/dL High GLU 110 Result Comment: Fasting Glucose result from 100 to 125 mg/dL suggests IMPAIRED HOMEOSTASIS per A.D.A. criteria. Please note revised GLUCOSE reference range effective 2017. LAB L501.1000 7-18 mg/dL High BUN 23 LAB L501.1100 0.55-1.02 mg/dL Normal CREAT,SERUM 0.80 Result Comment: The validity of the calculated GFR AND GFRAA in patients over 70 years has not been determined. Clinical correlation is essential. LAB L501.1110 >60 mL/min EST GFR Normal 73 LAB L501.1115 >60 mL/min EST GFR Normal - AA 88 LAB L501.1255 ml/min Normal Estimated CRCL 49.63 LAB L501.1300 10-20 RATIO High BUN/CRE 28.8 LAB L501.1500 6.4-8.2 g/dL T PROT Normal 6.6 LAB L501.1800 3.2-5.0 g/dL ALB Normal 3.6 LAB L501.1950 2.2-4.2 g/dL GLOB Normal 3.0 LAB L501.2000 0.9-2.4 RATIO A/G Normal 1.2 LAB L501.2200 8.5-10.1 mg/dL CA Normal 9.1 LAB L501.4100 15-37 U/L High AST 118 LAB L501.4305 45-117 U/L ALK P Normal 53 LAB L501.4405 13-56 U/L ALT Normal 17 LAB L501.4600 0.20-1.00 mg/dL T BILI Normal 0.50 LAB L501.5300 136-145 mmol/L NA Normal 142 LAB L501.5600 3.5-5.1 mmol/L K Normal 4.3 LAB L501.5900 98-107 mmol/L CL Normal 107 LAB L501.6100 21.0-32.0 mmol/L CO2 Normal 29.0 LAB L501.6200 5-15 GAP Normal 6 Performed By: #### L500.4050, L501.5200 #### [facility] [address] [facility], [address] MAGNESIUM Collected: 10/06/2017 Status: F Source: PAW PAW 10:30 AM [facility] REPOSITORY Order Comment: RESULT(S) PREVIOUSLY REPORTED ON MANUAL REQUISITION DURING DOWNTIME. TYPE CODE TESTS RESULT OUT OF RANGE REFERENCE UNITS LAB L501.5200 1.6-2.6 mg/dL Normal MG 1.7 Performed By: #### L500.4050, L501.5200 #### [facility] [address] [facility], [address] CBC W/DIFF, AUTOMATED Collected: 09/15/2017 Status: F Source: PAW PAW 11:24 AM [facility] REPOSITORY TYPE CODE TESTS RESULT OUT OF RANGE REFERENCE UNITS LAB L100.1000 4.4-11.0 K/mm3 Low WBC 3.9 LAB L100.1200 4.2-5.4 M/mm3 Normal RBC 4.34 LAB L100.1300 12.0-15.0 g/dl Normal HGB 13.1 LAB L100.1400 37-47 % Normal HCT 39.5 LAB L100.1500 81-99 fL Normal MCV 91.0 LAB L100.1600 27.0-32.0 pg Normal MCH 30.2 LAB L100.1700 32-36 g/gl Normal MCHC 33.2 LAB L100.1810 11.6-14.6 % Normal RDW CV 14.0 LAB L100.1820 35.1-43.9 fl High RDW SD 46.0 LAB L100.1900 150-450 K/mm3 Normal PLT 180 LAB L100.2000 6.2-12.0 fl Normal MPV 11.1 LAB L100.2100 47-70 % Normal NEUT% 62.3 LAB L100.2200 19-41 % Normal LY% 25.1 LAB L100.2300 0-10 % High MONO% 10.5 LAB L100.2400 0-5 % Normal EO% 1.8 LAB L100.2500 0-1 % Normal BASO% 0.3 LAB L100.2550 0.0-0.9 % Normal IM GRAN % 0.000 Result Comment: IG% - Immature Granulocytes (promyelocytes, myelocytes and metamyelocytes) > 1% indicates that a LEFT SHIFT is Present. LAB L100.2620 2.0-7.7 X10 3/uL Normal Absolute Neut 2.4 LAB L100.2720 0.83-4.51 X10 3/ul Normal Absolute Lymph 0.98 Performed By: #### L100.0100 #### [facility] [address] [place], [place], [address] COMPREHENSIVE METABOLIC Collected: 09/15/2017 Status: F Source: [facility] 11:24 AM [facility] REPOSITORY TYPE CODE TESTS RESULT OUT OF RANGE REFERENCE UNITS LAB L501.0100 74-106 mg/dL Normal GLU 89 Result Comment: Please note revised GLUCOSE reference range effective 2017. LAB L501.1000 7-18 mg/dL High BUN 20 LAB L501.1100 0.55-1.02 mg/dL Normal CREAT,SERUM 0.74 Result Comment: The validity of the calculated GFR AND GFRAA in patients over 70 years has not been determined. Clinical correlation is essential. LAB L501.1110 >60 mL/min Normal EST GFR 80 Result Comment: Non- GFR Calc LAB L501.1115 >60 mL/min Normal EST GFR - AA 97 Result Comment: GFR Calc LAB L501.1300 10-20 RATIO High BUN/CRE 27.1 LAB L501.1500 6.4-8.2 g/dL T Normal PROT 7.0 LAB L501.1800 3.2-5.0 g/dL Normal ALB 3.8 LAB L501.1950 2.2-4.2 g/dL Normal GLOB 3.2 LAB L501.2000 0.9-2.4 RATIO Normal A/G 1.2 LAB L501.2200 8.5-10.1 mg/dL CA Normal 9.1 LAB L501.4100 15-37 U/L Normal AST 20 LAB L501.4305 45-117 U/L Normal ALK P 55 LAB L501.4405 13-56 U/L Normal ALT 16 LAB L501.4600 0.20-1.00 mg/dL T Normal BILI 0.60 LAB L501.5300 136-145 mmol/L NA Normal 140 LAB L501.5600 3.5-5.1 mmol/L K Normal 4.3 LAB L501.5900 98-107 mmol/L CL Normal 107 LAB L501.6100 21.0-32.0 mmol/L Normal CO2 28.0 LAB L501.6200 5-15 Normal GAP 5 Performed By: #### L500.4050 #### [facility] [address] [place], [address] PROGRESS Observed: 08/25/2017 Status: COMPLETED Source: [place] 5:54 PM [facility] REPOSITORY HNO ID: [id number] Author: Jose Lakhani Service: (none) Author Type: Physician Type: Progress Notes Filed: 08/25/2017 5:58 PM Note Text: This 81 year old female presents today with her daughter today s/p ORIF left ankle fracture. Date of surgery 04/20/17. Patient approximately 4 months post op. Patient states that is doing well. Has transitioned out of boot and has been ambulating in her normal shoe gear without issue. Admits to occasional tenderness to the outside of the ankle if she bumps it. Admits to continued mild swelling to the ankle. Denies nausea, vomiting, fever, chills, shortness of breath, chest pain, or calf pain. Relates no other complaints. PAST MEDICAL HISTORY Diagnosis Date - Closed right ankle fracture - Malignant neoplasm of breast (female), unspecified site - Mammographic microcalcification 06/2007 left breast , BIRADS 4 - Rheumatoid arthritis(714.0) Current Outpatient Prescriptions: doxycycline monohydrate 100 mg tablet leucovorin (LEUCOVORIN) [address] (PROTONIX) 40 mg tablet acetaminophen (TYLENOL) 325 mg tablet Take 1 tablet by mouth every 6 hours as needed for Pain or Fever. methotrexate 2.5 mg tablet Take 6 tablets by mouth every Wednesday. aspirin 81 mg chewable tablet Take 1 tablet by mouth once daily. hydroxychloroquine (PLAQUENIL) 200 mg tablet Take 200 mg by mouth once daily. Folic Acid 10 mg/mL Soln Take 1 mg by mouth twice daily. leucovorin 5 mg tablet Take 5 mg by mouth once each week. Methotrexate Sodium (METHOTREXATE, ANTI-RHEUMATIC,) 2.5 mg tablet Take 15 mg by mouth once daily. Omeprazole 40 mg capsule Take 40 mg by mouth once daily. ABATACEPT/MALTOSE (ORENCIA INTRAVEN.) Inject intravenously q 4 WEEKS. NAPROXEN SODIUM (ALEVE ORAL) Take by mouth twice daily. MULTI-VITAMIN ORAL Take by mouth. Vitamin L86-Ahlfgqr B1 5.5-12.5 mg-mcg/5 mL Liqd Take by mouth. CALCIUM CARBONATE (CALCIUM 600 ORAL) Take by mouth twice daily. Dysart-3 Fatty Acids-Vitamin E (FISH OIL) 1,000 mg cap Take 1 capsule by mouth. Vitamin E 400 unit Tab Take by mouth once daily. DOXEPIN 25 MG CAP Take one(1) tablet daily. No current facility-administered medications for this visit. ALLERGIES No Known Allergies Objective: Patient presents weightbearing as tolerated in normal shoe gear. She has ulnar deviation of the fingers bilaterally. Problem focus examination to the left lower extremity: Incision site is well healed. Mild edema surrounding surgical site. + varicosities. No erythema. No drainage. No lymphangitis. No surrounding cellulitis. All incisions healed at this time No tenderness to palpation overlying medial and lateral malleoli left. Mild tenderness overlying plate at lateral ankle. Ankle joint ROM is mildly decreased and nonpainful. No pain to palpation of ankle joint or ankle gutters. Patient has no pain to palpation of calf. The calf is soft, supple and nontender without evidence of DVT. Negative Anderson's test. Satisfactory alignment is noted. Pedal pulses are palpable. Capillary refill time is less than two seconds to all toes. Sensation is intact to light touch. Radiographs: 3 views left ankle were obtained and evaluated. Radiographic evaluation: Hardware intact without breakage or loosening noted. Medial malleolar fracture appears consolidated. Good alignment of fracture fragments with increase in consolidation noted across comminuted fibula. Fibula out to length. Ankle mortise WNL. Assessment: S/p ORIF left ankle fracture Plan: The patient was educated on clinical examination findings, postoperative prognosis and protocol. All questions were answered to patient's apparent satisfaction. - Xray reviewed with patient - May continue low impact activities as tolerated. Avoid high impact. -Follow up in 2 months. Jose Lakhani DPM PROGRESS Observed: 08/25/2017 Status: COMPLETED Source: [place] 11:34 AM [facility] REPOSITORY HNO ID: [id number] Author: June Estrada (nAam) Service: (none) Author Type: Senior Manager Type: Progress Notes Filed: 08/25/2017 5:58 PM Note Text: REVIEW OF SYSTEMS: GENERAL: Well developed, well nourished. No acute distress PAIN: Pain none today pt states ankle is doing fine CARDIOVASCULAR: Negative for chest pain, leg swelling and palpations. MSK: Negative for joint pain, swelling, back pain, muscle pain. SKIN: Negative for lesions, rash, itching, metal sensitivity NEURO: Negative for seizure, trauma, numbness/tingling of extremities. ENDOCRINE: Negative for Diabetes Type 1 and Type 2 HEMATOLOGY: Negative for excessive bleeding, clots, bleeding disorders. CNOV Observed: 08/25/2017 Status: COMPLETED Source: [place] 11:00 AM [facility] Office Visit (AGPOB1) ROBERTO RASMUSSEN ([id number]) 1935 F Date Time Provider Department 08/25/17 11:00 AM [facility] During your visit today, we recorded the following information about you: Respiration Weight Height 16/minute 67.1 kg 1.676 m June Estrada MA 08/25/2017 5:58 PM Signed REVIEW OF SYSTEMS: GENERAL: Well developed, well nourished. No acute distress PAIN: Pain none today pt states ankle is doing fine CARDIOVASCULAR: Negative for chest pain, leg swelling and palpations. MSK: Negative for joint pain, swelling, back pain, muscle pain. SKIN: Negative for lesions, rash, itching, metal sensitivity NEURO: Negative for seizure, trauma, numbness/tingling of extremities. ENDOCRINE: Negative for Diabetes Type 1 and Type 2 HEMATOLOGY: Negative for excessive bleeding, clots, bleeding disorders. Jose Lakhani DPM 08/25/2017 5:58 PM Signed This 81 year old female presents today with her daughter today s/p ORIF left ankle fracture. Date of surgery 04/20/17. Patient approximately 4 months post op. Patient states that is doing well. Has transitioned out of boot and has been ambulating in her normal shoe gear without issue. Admits to occasional tenderness to the outside of the ankle if she bumps it. Admits to continued mild swelling to the ankle. Denies nausea, vomiting, fever, chills, shortness of breath, chest pain, or calf pain. Relates no other complaints. PAST MEDICAL HISTORY Diagnosis Date - Closed right ankle fracture - Malignant neoplasm of breast (female), unspecified site - Mammographic microcalcification 06/2007 left breast , BIRADS 4 - Rheumatoid arthritis(714.0) Current Outpatient Prescriptions: doxycycline monohydrate 100 mg tablet leucovorin (LEUCOVORIN) [address] (PROTONIX) 40 mg tablet acetaminophen (TYLENOL) 325 mg tablet Take 1 tablet by mouth every 6 hours as needed for Pain or Fever. methotrexate 2.5 mg tablet Take 6 tablets by mouth every Wednesday. aspirin 81 mg chewable tablet Take 1 tablet by mouth once daily. hydroxychloroquine (PLAQUENIL) 200 mg tablet Take 200 mg by mouth once daily. Folic Acid 10 mg/mL Soln Take 1 mg by mouth twice daily. leucovorin 5 mg tablet Take 5 mg by mouth once each week. Methotrexate Sodium (METHOTREXATE, ANTI-RHEUMATIC,) 2.5 mg tablet Take 15 mg by mouth once daily. Omeprazole 40 mg capsule Take 40 mg by mouth once daily. ABATACEPT/MALTOSE (ORENCIA INTRAVEN.) Inject intravenously q 4 WEEKS. NAPROXEN SODIUM (ALEVE ORAL) Take by mouth twice daily. MULTI-VITAMIN ORAL Take by mouth. Vitamin H74-Ggnsywy B1 5.5-12.5 mg-mcg/5 mL Liqd Take by mouth. CALCIUM CARBONATE (CALCIUM 600 ORAL) Take by mouth twice daily. Dysart-3 Fatty Acids-Vitamin E (FISH OIL) 1,000 mg cap Take 1 capsule by mouth. Vitamin E 400 unit Tab Take by mouth once daily. DOXEPIN 25 MG CAP Take one(1) tablet daily. No current facility-administered medications for this visit. ALLERGIES No Known Allergies Objective: Patient presents weightbearing as tolerated in normal shoe gear. She has ulnar deviation of the fingers bilaterally. Problem focus examination to the left lower extremity: Incision site is well healed. Mild edema surrounding surgical site. + varicosities. No erythema. No drainage. No lymphangitis. No surrounding cellulitis. All incisions healed at this time No tenderness to palpation overlying medial and lateral malleoli left. Mild tenderness overlying plate at lateral ankle. Ankle joint ROM is mildly decreased and nonpainful. No pain to palpation of ankle joint or ankle gutters. Patient has no pain to palpation of calf. The calf is soft, supple and nontender without evidence of DVT. Negative Anderson's test. Satisfactory alignment is noted. Pedal pulses are palpable. Capillary refill time is less than two seconds to all toes. Sensation is intact to light touch. Radiographs: 3 views left ankle were obtained and evaluated. Radiographic evaluation: Hardware intact without breakage or loosening noted. Medial malleolar fracture appears consolidated. Good alignment of fracture fragments with increase in consolidation noted across comminuted fibula. Fibula out to length. Ankle mortise WNL. Assessment: S/p ORIF left ankle fracture Plan: The patient was educated on clinical examination findings, postoperative prognosis and protocol. All questions were answered to patient's apparent satisfaction. - Xray reviewed with patient - May continue low impact activities as tolerated. Avoid high impact. -Follow up in 2 months. Jose Lakhani DPM Referring Provider: JOSE LAKHANI [[id number]] Allergies As of Date: 08/25/2017 (No Known Allergies) Date Reviewed: 08/25/2017 Reviewed by: Jose Lakhani - Fully Assessed Reason for Visit: Follow Up [171] Cmt: left ankle fx Primary Visit Diagnosis:Closed fracture of left ankle with routine healing, subsequent encounter [P38.517M] Order(s):XR ANKLE GENERAL 3V AP/LAT/OBL LT [[id number]] Order #: [id number] Prescriptions as of 08/25/2017 Sig: DOXYCYCLINE MONOHYDRATE 100 M* LEUCOVORIN CALCIUM 15 MG TABL* PANTOPRAZOLE 40 MG TABLET,DEL* ACETAMINOPHEN 325 MG TABLET Take 1 tablet by mouth every * METHOTREXATE SODIUM 2.5 MG TA* Take 6 tablets by mouth every* ASPIRIN 81 MG CHEWABLE TABLET Take 1 tablet by mouth once d* HYDROXYCHLOROQUINE 200 MG TAB* Take 200 mg by mouth once roberta* FOLIC ACID 10 MG/ML INJECTION* Take 1 mg by mouth twice helio* LEUCOVORIN CALCIUM 5 MG TABLET Take 5 mg by mouth once each * METHOTREXATE SODIUM 2.5 MG TA* Take 15 mg by mouth once helio* OMEPRAZOLE 40 MG CAPSULE,JUAN* Take 40 mg by mouth once helio* ORENCIA INTRAVEN. Inject intravenously q 4 WEE* ALEVE ORAL Take by mouth twice daily. MULTI-VITAMIN ORAL Take by mouth. VITAMIN Y28-LWAZVIU B1 5.5 MG* Take by mouth. CALCIUM 600 ORAL Take by mouth twice daily. OMEGA-3 FATTY ACIDS-VITAMIN E* Take 1 capsule by mouth. VITAMIN E 400 UNIT TABLET Take by mouth once daily. * DOXEPIN 25 MG CAPSULE Take one(1) tablet daily. 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 Disposition: Return in about 2 months (around 10/25/2017). Follow-up and Disposition History Recorded Encounter Status:Closed by JOSE LAKHANI DPM on 08/25/17 INITAL EVALUATION (1) Observed: 07/28/2017 Status: F Source: [facility] - PT 2:05 PM [facility] [place] REPOSITORY [facility] [address] [place] [address] Rd. [address] [place] [address] Fax REHABILITATION SERVICES INITIAL EVALUATION MR#: [id number] Acct: [id number] Name: ROBERTO RASMUSSEN Rep #: [id number] : 1935 81 From: David Fernandes PT, ATC Referring Dr.: Miguel Torres MD Status: REG RCR Insurance: [employer] [facility] SELF PAY INSURANCE Patient's Visit Information ROBERTO RASMUSSEN is a 81 year old F referred to Physical Therapy by MD NEMESIO King with a diagnosis of R ant shoulder dislocation. Date of Evaluation: 07/28/17 Physical Therapist: David Fernandes PT, - Visit Plan Frequency: 2-3x /Week Duration: 4-6 Weeks Plan: R shoulder pulleys, AROM/MOBS, scap stab ex's, rot cuff strengthening, and HEP - Subjective Subjective: Pt reports she slipped in [place] approximately 1 week ago which resulted in her landing on her face and R shoulder. Pt reports multiple contusions to nose and face, and also notes she dislocated her R shoulder. 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 Pt reports she was in a shoulder wrap for 3 days, and then has been out since. Pt reports she was told to try PT first, and then see if an MRI was necessary. Pt reports her shoulder has not really improved since DOI. Pt notes sleep diff secondary to pain. Pt is R hand dom. Pt notes some numbness in R UE since DOI. Pt reports she is limited with all IADL's secondary to lack of ROM. - Pain R shoulder Pain Intensity (Out of 10): 0 Pain Intensity Range: 3 - Objective Neuro: B UE sensation is WNL to light touch. B bicpes reflex= 2/3. Palpation: Pt is not sore with palpation to R shoulder. No obvious deformities presesent at this time. ROM: L shoulder flex= 155, abd= 165, ER= 65, IR WNL; R shoulder flex= 25, abd= 0, ER= 50, IR severely limited. MMT: L shoulder 5/5 throughout while R shoulder 1/5 and painful. Special test: Unable to assess other than a pos drop arm test - Goals Goal 1:: Decrease R shoulder pain x 50% to aid with sleep Goal Time Frame: 4-6 Weeks Goal 2:: Increase R shoulder strength x 1 grade to aid with IADL's Goal Time Frame: 4-6 Weeks Goal 3:: Increase R shoulder flex and abd ROM x 50 degrees to aid with overhead lifting Goal Time Frame: 4-6 Weeks Goal 4:: I with HEP Goal Time Frame: 4-6 Weeks - Rehabilitation Potential Physical Therapy Diagnosis: R shoulder pain, weakness, and limited ROM secondary to R shoulder dislocation Rehabilitation Potential: Good - Anticipated Interventions Thank you for the opportunity to evaluate your patient. For Medicare and Medicare HMO plans, please review the plan of care and approve it. It will need to be FAXED BACK to us at [phone] for Medicare purposes. Please let me know if there are questions or concerns regarding this plan of care. Physician Signature: Date: <Electronically signed by David Fernandes PT, ATC> 07/28/17 1402 CC: Teagan Hall MD; Miguel Torres MD [facility] Signed For Medicare only, by signing this I certify the plan of care. Physicians Signature Date PROGRESS Observed: 07/21/2017 Status: COMPLETED Source: [place] 11:18 AM CLINIC OTHER CAMPUS REPOSITORY O ID: [id number] Author: Jose Lakhani Service: (none) Author Type: Physician Type: Progress Notes Filed: 07/22/2017 10:01 AM Note Text: DOS: 04/20/17 POD: 13 weeks POV: 4 Procedure: ORIF left ankle fracture This 81 year old female presents today with her daughter for a post-op visit. Patient states they are doing well. Patient states that not having pain to the ankle and was able to go swimming since last visit. Did sustain fall in grocery store, Tripped over her shoes lace and fell on her face. States that broke her nose and dislocated her shoulder. Has been weightbearing as tolerated in cam walker to the left lower extremity. She has no pain to the ankle with ambulation. Denies nausea, vomiting, fever, chills, shortness of breath, chest pain, or calf pain. Relates no other complaints. PAST MEDICAL HISTORY Diagnosis Date - Malignant neoplasm of breast (female), unspecified site - Mammographic microcalcification 06/2007 left breast , BIRADS 4 - Rheumatoid arthritis(714.0) Current Outpatient Prescriptions: doxycycline monohydrate 100 mg tablet leucovorin (LEUCOVORIN) [address] (PROTONIX) 40 mg tablet acetaminophen (TYLENOL) 325 mg tablet Take 1 tablet by mouth every 6 hours as needed for Pain or Fever. methotrexate 2.5 mg tablet Take 6 tablets by mouth every Wednesday. aspirin 81 mg chewable tablet Take 1 tablet by mouth once daily. hydroxychloroquine (PLAQUENIL) 200 mg tablet Take 200 mg by mouth once daily. Folic Acid 10 mg/mL Soln Take 1 mg by mouth twice daily. leucovorin 5 mg tablet Take 5 mg by mouth once each week. Omeprazole 40 mg capsule Take 40 mg by mouth once daily. ABATACEPT/MALTOSE (ORENCIA INTRAVEN.) Inject intravenously q 4 WEEKS. NAPROXEN SODIUM (ALEVE ORAL) Take by mouth twice daily. MULTI-VITAMIN ORAL Take by mouth. Vitamin K87-Jzmgklv B1 5.5-12.5 mg-mcg/5 mL Liqd Take by mouth. CALCIUM CARBONATE (CALCIUM 600 ORAL) Take by mouth twice daily. Dysart-3 Fatty Acids-Vitamin E (FISH OIL) 1,000 mg cap Take 1 capsule by mouth. Vitamin E 400 unit Tab Take by mouth once daily. DOXEPIN 25 MG CAP Take one(1) tablet daily. Methotrexate Sodium (METHOTREXATE, ANTI-RHEUMATIC,) 2.5 mg tablet Take 15 mg by mouth once daily. No current facility-administered medications for this visit. ALLERGIES No Known Allergies Objective: Patient presents weightbearing as tolerated to left leg in cam walker. She has ulnar deviation of the fingers bilaterally. Problem focus examination to the left lower extremity: Incision site is well healed without evidence of dehiscence. Mild edema surrounding surgical site. No erythema. No drainage. No lymphangitis. No surrounding cellulitis. All incisions healed at this time No tenderness to palpation overlying medial and lateral malleoli left. Ankle joint ROM is mildly decreased and nonpainful. No pain to palpation of ankle joint or ankle gutters. Patient has no pain to palpation of calf. The calf is soft, supple and nontender without evidence of DVT. Negative Anderson's test. Satisfactory alignment is noted. Pedal pulses are palpable. Capillary refill time is less than two seconds to all toes. Sensation is intact to light touch. Radiographs: 3 views left ankle were obtained and evaluated. Radiographic evaluation: Hardware intact without breakage or loosening noted. Good alignment of fracture fragments with increase in consolidation noted across comminuted fibula. Fibula out to length. Ankle mortise WNL. Assessment: Satisfactory post-operative progress Plan: The patient was educated on clinical examination findings, postoperative prognosis and protocol. All questions were answered to patient's apparent satisfaction. - Xray reviewed with patient - Advised patient that may begin transition to weightbearing in the lace up ankle brace at this time. Lace up ankle brace fit and dispensed in office today. -Follow up in 4-6 weeks with repeat ankle xrays Jose Lakhani DPM PROGRESS Observed: 07/21/2017 Status: COMPLETED Source: [place] 11:14 AM [facility] REPOSITORY HNO ID: [id number] Author: Vero Ram Service: (none) Author Type: LICENSED NURSE Type: Progress Notes Filed: 07/22/2017 10:01 AM Note Text: REVIEW OF SYSTEMS: GENERAL: Well developed, well nourished. No acute distress PAIN: Negative for pain, history of chronic pain or current treatment for chronic pain conditions CARDIOVASCULAR: Negative for chest pain, leg swelling and palpations. MSK: Negative for joint pain, swelling, back pain, muscle pain. SKIN: Negative for lesions, rash, itching, metal sensitivity NEURO: Negative for seizure, trauma, numbness/tingling of extremities. ENDOCRINE: Negative for Diabetes Type 1 and Type 2 HEMATOLOGY: Negative for excessive bleeding, clots, bleeding disorders. CNOV Observed: 07/21/2017 Status: COMPLETED Source: [place] 11:00 AM [facility] REPOSITORY Office Visit ([id number]) ROBERTO RASMUSSEN ([id number]) 1935 F Date Time Provider Department 07/21/17 11:00 AM JOSE LAKHANI During your visit today, we recorded the following information about you: Vero OFELIA Ram 07/22/2017 10:01 AM Signed REVIEW OF SYSTEMS: GENERAL: Well developed, well nourished. No acute distress PAIN: Negative for pain, history of chronic pain or current treatment for chronic pain conditions CARDIOVASCULAR: Negative for chest pain, leg swelling and palpations. MSK: Negative for joint pain, swelling, back pain, muscle pain. SKIN: Negative for lesions, rash, itching, metal sensitivity NEURO: Negative for seizure, trauma, numbness/tingling of extremities. ENDOCRINE: Negative for Diabetes Type 1 and Type 2 HEMATOLOGY: Negative for excessive bleeding, clots, bleeding disorders. Jose Lakhani DPM 07/22/2017 10:01 AM Signed DOS: 04/20/17 POD: 13 weeks POV: 4 Procedure: ORIF left ankle fracture This 81 year old female presents today with her daughter for a post-op visit. Patient states they are doing well. Patient states that not having pain to the ankle and was able to go swimming since last visit. Did sustain fall in grocery store, Tripped over her shoes lace and fell on her face. States that broke her nose and dislocated her shoulder. Has been weightbearing as tolerated in cam walker to the left lower extremity. She has no pain to the ankle with ambulation. Denies nausea, vomiting, fever, chills, shortness of breath, chest pain, or calf pain. Relates no other complaints. PAST MEDICAL HISTORY Diagnosis Date - Malignant neoplasm of breast (female), unspecified site - Mammographic microcalcification 06/2007 left breast , BIRADS 4 - Rheumatoid arthritis(714.0) Current Outpatient Prescriptions: doxycycline monohydrate 100 mg tablet leucovorin (LEUCOVORIN) [address] (PROTONIX) 40 mg tablet acetaminophen (TYLENOL) 325 mg tablet Take 1 tablet by mouth every 6 hours as needed for Pain or Fever. methotrexate 2.5 mg tablet Take 6 tablets by mouth every Wednesday. aspirin 81 mg chewable tablet Take 1 tablet by mouth once daily. hydroxychloroquine (PLAQUENIL) 200 mg tablet Take 200 mg by mouth once daily. Folic Acid 10 mg/mL Soln Take 1 mg by mouth twice daily. leucovorin 5 mg tablet Take 5 mg by mouth once each week. Omeprazole 40 mg capsule Take 40 mg by mouth once daily. ABATACEPT/MALTOSE (ORENCIA INTRAVEN.) Inject intravenously q 4 WEEKS. NAPROXEN SODIUM (ALEVE ORAL) Take by mouth twice daily. MULTI-VITAMIN ORAL Take by mouth. Vitamin Y87-Dkuhorh B1 5.5-12.5 mg-mcg/5 mL Liqd Take by mouth. CALCIUM CARBONATE (CALCIUM 600 ORAL) Take by mouth twice daily. Dysart-3 Fatty Acids-Vitamin E (FISH OIL) 1,000 mg cap Take 1 capsule by mouth. Vitamin E 400 unit Tab Take by mouth once daily. DOXEPIN 25 MG CAP Take one(1) tablet daily. Methotrexate Sodium (METHOTREXATE, ANTI-RHEUMATIC,) 2.5 mg tablet Take 15 mg by mouth once daily. No current facility-administered medications for this visit. ALLERGIES No Known Allergies Objective: Patient presents weightbearing as tolerated to left leg in cam walker. She has ulnar deviation of the fingers bilaterally. Problem focus examination to the left lower extremity: Incision site is well healed without evidence of dehiscence. Mild edema surrounding surgical site. No erythema. No drainage. No lymphangitis. No surrounding cellulitis. All incisions healed at this time No tenderness to palpation overlying medial and lateral malleoli left. Ankle joint ROM is mildly decreased and nonpainful. No pain to palpation of ankle joint or ankle gutters. Patient has no pain to palpation of calf. The calf is soft, supple and nontender without evidence of DVT. Negative Anderson's test. Satisfactory alignment is noted. Pedal pulses are palpable. Capillary refill time is less than two seconds to all toes. Sensation is intact to light touch. Radiographs: 3 views left ankle were obtained and evaluated. Radiographic evaluation: Hardware intact without breakage or loosening noted. Good alignment of fracture fragments with increase in consolidation noted across comminuted fibula. Fibula out to length. Ankle mortise WNL. Assessment: Satisfactory post-operative progress Plan: The patient was educated on clinical examination findings, postoperative prognosis and protocol. All questions were answered to patient's apparent satisfaction. - Xray reviewed with patient - Advised patient that may begin transition to weightbearing in the lace up ankle brace at this time. Lace up ankle brace fit and dispensed in office today. -Follow up in 4-6 weeks with repeat ankle xrays Jose Lakhani DPM Referring Provider: JOSE LAKHANI [[id number]] Allergies As of Date: 07/21/2017 (No Known Allergies) Date Reviewed: 07/21/2017 Reviewed by: Jose Lakhani - Fully Assessed Reason for Visit: Post-Op Visit [1236] Cmt: ORIF left ankle fracture 04/20/2018 Primary Visit Diagnosis:Post-operative state [Z98.890] Other Visit Diagnosis:Closed fracture of left ankle with routine healing, subsequent encounter [M70.746X] Order(s):XR ANKLE GENERAL 3V AP/LAT/OBL LT [[id number]] Order #: [id number] Prescriptions as of 07/21/2017 Sig: DOXYCYCLINE MONOHYDRATE 100 M* LEUCOVORIN CALCIUM 15 MG TABL* PANTOPRAZOLE 40 MG TABLET,DEL* ACETAMINOPHEN 325 MG TABLET Take 1 tablet by mouth every * METHOTREXATE SODIUM 2.5 MG TA* Take 6 tablets by mouth every* ASPIRIN 81 MG CHEWABLE TABLET Take 1 tablet by mouth once d* HYDROXYCHLOROQUINE 200 MG TAB* Take 200 mg by mouth once roberta* FOLIC ACID 10 MG/ML INJECTION* Take 1 mg by mouth twice helio* LEUCOVORIN CALCIUM 5 MG TABLET Take 5 mg by mouth once each * OMEPRAZOLE 40 MG CAPSULE,JUAN* Take 40 mg by mouth once helio* ORENCIA INTRAVEN. Inject intravenously q 4 WEE* ALEVE ORAL Take by mouth twice daily. MULTI-VITAMIN ORAL Take by mouth. VITAMIN Z65-ETPLIDP B1 5.5 MG* Take by mouth. CALCIUM 600 ORAL Take by mouth twice daily. OMEGA-3 FATTY ACIDS-VITAMIN E* Take 1 capsule by mouth. VITAMIN E 400 UNIT TABLET Take by mouth once daily. * DOXEPIN 25 MG CAPSULE Take one(1) tablet daily. 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 Disposition: Return in about 5 weeks (around 08/25/2017). Follow-up and Disposition History Recorded Encounter Status:Closed by JOSE LAKHANI DPM on 07/22/17 EMERGENCY DEPARTMENT Observed: 07/19/2017 Status: F Source: [place] SUMMARY 6:52 PM [facility] [place] REPOSITORY [facility] Medical Records Department [address] [place] [address] Emergency Department Summary 07/19/17 1708 MR#: [id number] Acct: [id number] Name: ROBERTO RASMUSSEN Rep #: [id number] : 1935 81 From: Yandel Nguyen MD PCP: Teagan Hall MD Status: DEP ER - ER Visit Summary Date of Service: 07/19/17 Chief Complaint: Fall History of Present Illness: The patient is a [address] Hall. She reports that she tripped walking through the parking lot. She reports that she did hit her face, but did not have a loss of consciousness. She has right shoulder pain that is 5 out of 10 at rest and 10 out of 10 with movement. She has left knee pain is 1 out of 10. She denies any neck, back, wrist, or hip pain. She is unsure when her last tetanus shot was. Physical Examination: Vitals: Stable. Afebrile. Face: Abrasion over the proximal half of her nose with 1 cm laceration over the bridge of her nose. No active bleeding. No septal hematoma. Neck: No vertebral tenderness. Full ROM without difficulty. Cleared by NEXUS criteria. Back: No vertebral tenderness. General: A AND O x 3. NAD. Cardiovascular exam: Regular rate and rhythm, no murmur, rub or gallop. Respiratory exam: Chest nontender. No crepitus. Clear to auscultation bilaterally. No wheezes or stridor. Abdominal exam: Soft, nontender, nondistended, normal bowel sounds. No pain in RUQ or LUQ specifically. No peritoneal signs. Extremity: Severe tenderness palpation over her right shoulder with an obvious deformity. He is neurovascular intact distally. Test Results: CT brain shows a nondisplaced nasal fracture and chronic changes. No intracranial hemorrhage. Right shoulder x-ray shows an anterior dislocation without fracture. Repeat x-ray shows a reduction. Emergency Department Course and Treatment: Patient was given a dose of fentanyl IV. She then had procedural sedation undertaken with propofol and her shoulder was reduced. She tolerated this well. She also had a laceration repair while she was sedated. Treatment Plan: She will be discharged instructions to follow- up Dr. Wilian Jackson 1 week for another exam. Placed on Percocet and Colace at home. Return to the emergency department for any worsening symptoms. Disposition: To home in improved and stable condition. Impression: 1. Fall. 2. Right shoulder dislocation. 3. Laceration of nose, 1 cm, repaired. 4. Procedural sedation. 5. Reduction right shoulder. Procedure note: Wound was cleansed with chlorhexidine soap. Anesthetized with 1% lidocaine without epinephrine. Copiously irrigated with normal saline. Wound was explored there is no foreign material present. It was closed with 3 simple interrupted 5-0 rapid Vicryl sutures. The patient tolerated it well. This note was generated with [employer] dictation software. It may contain incorrect words, spelling, and punctuation that were not noted in review of the chart prior to signing ED Disposition - Plan for ED Patient: Disposition[facility] Chief Complaint: Fall Instructions: ED Dislocation Shoulder Redu Prescriptions: Oxycodone HCl/Acetaminophen [Percocet 5/325] 1 tablet PO Q6H PRN PRN 5 Days #20 tablet PRN Reason: Pain Docusate Sodium [Colace] 100 mg PO DAILY #20 capsule Referrals: Wilian Jackson MD [STAFF PHYSICIAN] - 1 Week What to do if you have Problems For any increased pain, shortness of breath, bleeding, nausea or vomiting, chest pain, or any unexpected problems, contact your Primary Care Provider. Call [facility] ([phone]) or report to the closest Emergency Room. Call 911 if necessary. 07/19/17 2312 <Electronically signed by Yandel Nguyen MD> Date Yandel Nguyen MD Cosigner Signature (If Indicated): Date CC: Teagan Hall MD SHOULDER MIN 2 VIEWS Observed: 07/19/2017 Status: F Source: [place] 4:04 PM [facility] REPOSITORY [facility] Imaging Services [address] [place] [address] Shoulder min 2 Views MR#: [id number] Acct: [id number] Name: ROBERTO RASMUSSEN Rep #: [id number] : 1935 F 81 From: Melissa Rebolledo MD PCP: Teagan Hall MD Status: REG ER Study: Shoulder min 2 Views Date of Exam: 07/19/17 Exam# [id number] Ordering Dr: Yandel Nguyen MD STUDY: X-RAY - RIGHT SHOULDER REASON FOR EXAM: Female, 81 years old. Post reduction. TECHNIQUE: 2 view(s) of the shoulder. COMPARISON: Frontal view of the right shoulder 1537 hours. FINDINGS: Post reduction, the glenohumeral articulation is return to anatomic alignment. There is stable minor degenerative arthrosis of the acromioclavicular joint. Normal acromion. Normal humeral head and visualized proximal humerus. There are degenerative changes of the visualized lower cervical spine. There is no demonstrated fracture. Normal visualized pulmonary apex. Surgical clips again seen in the soft tissues of the right lateral chest wall. A left chest wall MediPort is noted, its catheter tip in the low superior vena cava. RAD/Shoulder min 2 Views IMPRESSION: Right shoulder joint in anatomic alignment postreduction. No demonstrated fracture. Electronically Signed: Osvaldo Rebolledo MD at 17:44 EDT , Service support , CC: Teagan Hall MD; Yandel Nguyen MD Dyer And Washer: Signed BRAIN/HEAD WITHOUT Observed: 07/19/2017 Status: F Source: JACKIE CONTRAST 2:59 PM [facility] REPOSITORY [facility] Imaging Services [address] [place] [address] Brain/Head without Contrast MR#: [id number] Acct: [id number] Name: ROBERTO RASMUSSEN Rep #: [id number] : 1935 F 81 From: Aneudy Cardenas MD PCP: Teagan Hall MD Status: REG ER Study: Brain/Head without Contrast Date of Exam: 07/19/17 Exam# [id number] Ordering Dr: Yandel Nguyen MD STUDY: CT BRAIN WITHOUT CONTRAST REASON FOR EXAM: Female, 81 years old. Nasal laceration following a fall. History of breast cancer. RADIATION DOSAGE (If Supplied By Facility): CTDIvol = ( 44.99 ) mGy, DLP = ( 745.49 ) mGycm TECHNIQUE: Transaxial CT imaging of the brain was performed without administration of intravenous contrast material. Individualized dose optimization techniques were used for this CT. COMPARISON: None. FINDINGS: Normal soft tissue structures. Normal calvarium. There is mild cerebral atrophy with widening of the extra- axial spaces and ventricular dilatation. Normal white matter tracts of the cerebral hemispheres. Normal basal ganglia and thalami. Normal brainstem. Normal cerebellum. There is no intracranial hemorrhage. There are no findings of an acute ischemic infarction. Atherosclerotic calcification of the cavernous portions of the internal carotid arteries bilaterally. Nondisplaced nasal fracture. CT/Brain/Head without Contrast IMPRESSION: Chronic involutional changes of the brain. Nondisplaced nasal fracture. Electronically Signed: Aneudy Cardenas MD at 15:51 EDT Tel [phone], Service support , CC: Teagan Hall MD; Yandel Nguyen MD Dyer And Washer: Signed SHOULDER MIN 2 VIEWS Observed: 07/19/2017 Status: F Source: JACKIE 2:59 PM [facility] REPOSITORY [facility] Imaging Services [address] [place] [address] Shoulder min 2 Views MR#: [id number] Acct: [id number] Name: ROBERTO RASMUSSEN Rep #: [id number] : 1935 F 81 From: Melissa Rebolledo MD PCP: Teagan Hall MD Status: REG ER Study: Shoulder min 2 Views Date of Exam: 07/19/17 Exam# [id number] Ordering Dr: Yandel Nguyen MD STUDY: X-RAY - RIGHT SHOULDER REASON FOR EXAM: Female, 81 years old. Fall, shoulder pain. TECHNIQUE: 1 frontal view(s) of the shoulder. COMPARISON: Portable AP erect chest x-ray September 23, 2013. FINDINGS: There is an medial dislocation of the glenohumeral articulation. 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 Normal acromion. Normal humeral head and visualized proximal humerus. Mild periarticular spurring of the glenoid noted. Surgical clips again seen in the soft tissues of the right lateral chest wall. Small lucency at the superior interface of the greater tubercle and humeral head raises question of a cortical impaction fracture. Normal visualized pulmonary apex. RAD/Shoulder min 2 Views IMPRESSION: Medial dislocation of the shoulder with question of small cortical impaction fracture at the interface of the greater tubercle and humeral head. Electronically Signed: Osvaldo Rebolledo MD at 16:18 EDT , Service support , CC: Teagan Hlal MD; Yandel Nguyen MD Dyer And Washer: Signed PROGRESS Observed: 06/30/2017 Status: COMPLETED Source: [place] 11:18 AM CLINIC OTHER CAMPUS REPOSITORY HNO ID: [id number] Author: Jose Lakhani Service: (none) Author Type: Physician Type: Progress Notes Filed: 06/30/2017 2:25 PM Note Text: DOS: 04/20/17 POD: 10 weeks POV: 3 Procedure: ORIF left ankle fracture This 81 year old female presents today with her sister for a post-op visit. Patient states they are doing well. Patient states that not having pain. Not taking any pain medication. Has been elevating the extremity as instructed and has been weightbearing as tolerated in cam walker to the left lower extremity. She has no pain to the ankle with ambulation, mild increase in swelling if on it for the day. Admit to doing some walking outside of the boot as well without pain. Denies nausea, vomiting, fever, chills, shortness of breath, chest pain, or calf pain. Relates no other complaints. PAST MEDICAL HISTORY Diagnosis Date - Malignant neoplasm of breast (female), unspecified site - Mammographic microcalcification 06/2007 left breast , BIRADS 4 - Rheumatoid arthritis(714.0) Current Outpatient Prescriptions: doxycycline monohydrate 100 mg tablet leucovorin (LEUCOVORIN) [address] (PROTONIX) 40 mg tablet acetaminophen (TYLENOL) 325 mg tablet Take 1 tablet by mouth every 6 hours as needed for Pain or Fever. methotrexate 2.5 mg tablet Take 6 tablets by mouth every Wednesday. aspirin 81 mg chewable tablet Take 1 tablet by mouth once daily. hydroxychloroquine (PLAQUENIL) 200 mg tablet Take 200 mg by mouth once daily. Folic Acid 10 mg/mL Soln Take 1 mg by mouth twice daily. Methotrexate Sodium (METHOTREXATE, ANTI-RHEUMATIC,) 2.5 mg tablet Take 15 mg by mouth once daily. Omeprazole 40 mg capsule Take 40 mg by mouth once daily. ABATACEPT/MALTOSE (ORENCIA INTRAVEN.) Inject intravenously q 4 WEEKS. NAPROXEN SODIUM (ALEVE ORAL) Take by mouth twice daily. MULTI-VITAMIN ORAL Take by mouth. Vitamin J64-Xfowifc B1 5.5-12.5 mg-mcg/5 mL Liqd Take by mouth. CALCIUM CARBONATE (CALCIUM 600 ORAL) Take by mouth twice daily. Dysart-3 Fatty Acids-Vitamin E (FISH OIL) 1,000 mg cap Take 1 capsule by mouth. Vitamin E 400 unit Tab Take by mouth once daily. DOXEPIN 25 MG CAP Take one(1) tablet daily. leucovorin 5 mg tablet Take 5 mg by mouth once each week. No current facility-administered medications for this visit. ALLERGIES No Known Allergies Objective: Patient presents weightbearing as tolerated to left leg in cam walker. She has ulnar deviation of the fingers bilaterally. Problem focus examination to the left lower extremity: Incision site is well coapted without evidence of dehiscence. Mild edema surrounding surgical site. No erythema. No drainage. No lymphangitis. No surrounding cellulitis. All incisions healed at this time No tenderness to palpation overlying medial and lateral malleoli left. Ankle joint ROM is mildly decreased and nonpainful. Patient has no pain to palpation of calf. The calf is soft, supple and nontender without evidence of DVT. Negative Anderson's test. Satisfactory alignment is noted. Pedal pulses are palpable. Capillary refill time is less than two seconds to all toes. Sensation is intact to light touch. Radiographs: 3 views left ankle were obtained and evaluated. Radiographic evaluation: Hardware intact without breakage or loosening noted. Good alignment of fracture fragments with increase in consolidation noted. Fibula out to length. Ankle mortise WNL. Assessment: Satisfactory post-operative progress Plan: The patient was educated on clinical examination findings, postoperative prognosis and protocol. All questions were answered to patient's apparent satisfaction. - xray reviewed with patient - continued weightbearing in the CAM boot for 3 weeks - can start to do water based aerobics but is not to WB without boot at this time. - continue wrapping leg to help with swelling, new tubigrip and samara dispensed -Follow up in 3 weeks with repeat ankle xrays and possible transition to lace up ankle brace at that time. Stevenson Guillen DPM PGY-II Patient was seen, evaluated, discussed and treated with the above resident, all stern components of the exam and treatment were reviewed. I agree with the findings and treatment plan as outlined the above note. Jose Lakhani DPM CNOV Observed: 06/30/2017 Status: COMPLETED Source: [place] 11:15 AM [facility] OTHER CAMPUS REPOSITORY Office Visit (AGPOB1) ROBERTO RASMUSSEN ([id number]) 1935 F Date Time Provider Department 06/30/17 11:15 AM JOSE LAKHANI AGPOB1 During your visit today, we recorded the following information about you: Respiration Weight Height 16/minute 67.1 kg 1.676 m Garfield Goodson [facility] 06/30/2017 2:25 PM Signed REVIEW OF SYSTEMS: GENERAL: Well developed, well nourished. No acute distress PAIN: Negative for pain, history of chronic pain or current treatment for chronic pain conditions CARDIOVASCULAR: Negative for chest pain, leg swelling and palpations. MSK: Negative for joint pain, swelling, back pain, muscle pain. SKIN: Negative for lesions, rash, itching, metal sensitivity NEURO: Negative for seizure, trauma, numbness/tingling of extremities. ENDOCRINE: Negative for Diabetes Type 1 and Type 2 HEMATOLOGY: Negative for excessive bleeding, clots, bleeding disorders. Jose Lakhani DPM 06/30/2017 2:25 PM Signed DOS: 04/20/17 POD: 10 weeks POV: 3 Procedure: ORIF left ankle fracture This 81 year old female presents today with her sister for a post-op visit. Patient states they are doing well. Patient states that not having pain. Not taking any pain medication. Has been elevating the extremity as instructed and has been weightbearing as tolerated in cam walker to the left lower extremity. She has no pain to the ankle with ambulation, mild increase in swelling if on it for the day. Admit to doing some walking outside of the boot as well without pain. Denies nausea, vomiting, fever, chills, shortness of breath, chest pain, or calf pain. Relates no other complaints. PAST MEDICAL HISTORY Diagnosis Date - Malignant neoplasm of breast (female), unspecified site - Mammographic microcalcification 06/2007 left breast , BIRADS 4 - Rheumatoid arthritis(714.0) Current Outpatient Prescriptions: doxycycline monohydrate 100 mg tablet leucovorin (LEUCOVORIN) [address] (PROTONIX) 40 mg tablet acetaminophen (TYLENOL) 325 mg tablet Take 1 tablet by mouth every 6 hours as needed for Pain or Fever. methotrexate 2.5 mg tablet Take 6 tablets by mouth every Jamarcus. aspirin 81 mg chewable tablet Take 1 tablet by mouth once daily. hydroxychloroquine (PLAQUENIL) 200 mg tablet Take 200 mg by mouth once daily. Folic Acid 10 mg/mL Soln Take 1 mg by mouth twice daily. Methotrexate Sodium (METHOTREXATE, ANTI-RHEUMATIC,) 2.5 mg tablet Take 15 mg by mouth once daily. Omeprazole 40 mg capsule Take 40 mg by mouth once daily. ABATACEPT/MALTOSE (ORENCIA INTRAVEN.) Inject intravenously q 4 WEEKS. NAPROXEN SODIUM (ALEVE ORAL) Take by mouth twice daily. MULTI-VITAMIN ORAL Take by mouth. Vitamin Z03-Lxhzctz B1 5.5-12.5 mg-mcg/5 mL Liqd Take by mouth. CALCIUM CARBONATE (CALCIUM 600 ORAL) Take by mouth twice daily. Dysart-3 Fatty Acids-Vitamin E (FISH OIL) 1,000 mg cap Take 1 capsule by mouth. Vitamin E 400 unit Tab Take by mouth once daily. DOXEPIN 25 MG CAP Take one(1) tablet daily. leucovorin 5 mg tablet Take 5 mg by mouth once each week. No current facility-administered medications for this visit. ALLERGIES No Known Allergies Objective: Patient presents weightbearing as tolerated to left leg in cam walker. She has ulnar deviation of the fingers bilaterally. Problem focus examination to the left lower extremity: Incision site is well coapted without evidence of dehiscence. Mild edema surrounding surgical site. No erythema. No drainage. No lymphangitis. No surrounding cellulitis. All incisions healed at this time No tenderness to palpation overlying medial and lateral malleoli left. Ankle joint ROM is mildly decreased and nonpainful. Patient has no pain to palpation of calf. The calf is soft, supple and nontender without evidence of DVT. Negative Anderson's test. Satisfactory alignment is noted. Pedal pulses are palpable. Capillary refill time is less than two seconds to all toes. Sensation is intact to light touch. Radiographs: 3 views left ankle were obtained and evaluated. Radiographic evaluation: Hardware intact without breakage or loosening noted. Good alignment of fracture fragments with increase in consolidation noted. Fibula out to length. Ankle mortise WNL. Assessment: Satisfactory post-operative progress Plan: The patient was educated on clinical examination findings, postoperative prognosis and protocol. All questions were answered to patient's apparent satisfaction. - xray reviewed with patient - continued weightbearing in the CAM boot for 3 weeks - can start to do water based aerobics but is not to WB without boot at this time. - continue wrapping leg to help with swelling, new tubigrip and samara dispensed -Follow up in 3 weeks with repeat ankle xrays and possible transition to lace up ankle brace at that time. Stevenson Guillen DPM PGY-II Patient was seen, evaluated, discussed and treated with the above resident, all stern components of the exam and treatment were reviewed. I agree with the findings and treatment plan as outlined the above note. Jose Lakhani DPM Referring Provider: SELF [200] Allergies As of Date: 06/30/2017 (No Known Allergies) Date Reviewed: 06/30/2017 Reviewed by: Jose Lakhani - Fully Assessed Reason for Visit: Follow Up [171] Cmt: left ankle Primary Visit Diagnosis:Post-operative state [Z98.890] Other Visit Diagnosis:Closed fracture of left ankle with routine healing, subsequent encounter [B11.930G] Order(s):XR ANKLE GENERAL 3V AP/LAT/OBL LT [[id number]] Order #: [id number] Prescriptions as of 06/30/2017 Sig: DOXYCYCLINE MONOHYDRATE 100 M* LEUCOVORIN CALCIUM 15 MG TABL* PANTOPRAZOLE 40 MG TABLET,DEL* ACETAMINOPHEN 325 MG TABLET Take 1 tablet by mouth every * METHOTREXATE SODIUM 2.5 MG TA* Take 6 tablets by mouth every* ASPIRIN 81 MG CHEWABLE TABLET Take 1 tablet by mouth once d* HYDROXYCHLOROQUINE 200 MG TAB* Take 200 mg by mouth once roberta* FOLIC ACID 10 MG/ML INJECTION* Take 1 mg by mouth twice helio* METHOTREXATE SODIUM 2.5 MG TA* Take 15 mg by mouth once helio* OMEPRAZOLE 40 MG CAPSULE,JUAN* Take 40 mg by mouth once helio* ORENCIA INTRAVEN. Inject intravenously q 4 WEE* ALEVE ORAL Take by mouth twice daily. MULTI-VITAMIN ORAL Take by mouth. VITAMIN R26-QCIJHIT B1 5.5 MG* Take by mouth. CALCIUM 600 ORAL Take by mouth twice daily. OMEGA-3 FATTY ACIDS-VITAMIN E* Take 1 capsule by mouth. VITAMIN E 400 UNIT TABLET Take by mouth once daily. * DOXEPIN 25 MG CAPSULE Take one(1) tablet daily. LEUCOVORIN CALCIUM 5 MG TABLET Take 5 mg by mouth once each * Problem List As Of Date 06/30/2017 Noted Resolved RHEUMATOID ARTHRITIS [M06.9] INVALID FOR* POSTMASTECT LYMPHEDEMA [I97.2] INVALID FOR* Ankle fracture [S82.899A] INVALID FOR* Ankle fracture, left, closed, initial encounter*INVALID FOR* More... Disposition: Return in about 3 weeks (around 07/21/2017). Follow-up and Disposition History Recorded Encounter Status:Closed by JOSE LAKHANI DPM on 06/30/17 PROGRESS Observed: 06/30/2017 Status: COMPLETED Source: [place] 11:04 AM CLINIC OTHER CAMPUS REPOSITORY HNO ID: [id number] Author: Garfield Goodson [facility] Service: (none) Author Type: (none) Type: Progress Notes Filed: 06/30/2017 2:25 PM Note Text: REVIEW OF SYSTEMS: GENERAL: Well developed, well nourished. No acute distress PAIN: Negative for pain, history of chronic pain or current treatment for chronic pain conditions CARDIOVASCULAR: Negative for chest pain, leg swelling and palpations. MSK: Negative for joint pain, swelling, back pain, muscle pain. SKIN: Negative for lesions, rash, itching, metal sensitivity NEURO: Negative for seizure, trauma, numbness/tingling of extremities. ENDOCRINE: Negative for Diabetes Type 1 and Type 2 HEMATOLOGY: Negative for excessive bleeding, clots, bleeding disorders. CBC W/DIFF, AUTOMATED Collected: 06/25/2017 Status: F Source: PAW PAW 12:39 PM [facility] REPOSITORY Order Comment: Reason for Laboratory Test . TYPE CODE TESTS RESULT OUT OF RANGE REFERENCE UNITS LAB L100.1000 4.4-11.0 K/mm3 Normal WBC 5.2 LAB L100.1200 4.2-5.4 M/mm3 Low RBC 4.18 LAB L100.1300 12.0-15.0 g/dl Normal HGB 12.5 LAB L100.1400 37-47 % Normal HCT 37.4 LAB L100.1500 81-99 fL Normal MCV 89.5 LAB L100.1600 27.0-32.0 pg Normal MCH 29.9 LAB L100.1700 32-36 g/gl Normal MCHC 33.4 LAB L100.1810 11.6-14.6 % Normal RDW CV 13.5 LAB L100.1820 35.1-43.9 fl Normal RDW SD 43.2 LAB L100.1900 150-450 K/mm3 Normal PLT 180 LAB L100.2000 6.2-12.0 fl Normal MPV 11.2 LAB L100.2100 47-70 % Normal NEUT% 69.1 LAB L100.2200 19-41 % Low LY% 17.3 LAB L100.2300 0-10 % High MONO% 11.7 LAB L100.2400 0-5 % Normal EO% 1.7 LAB L100.2500 0-1 % Normal BASO% 0.2 LAB L100.2550 0.0-0.9 % Normal IM GRAN % 0.000 Result Comment: IG% - Immature Granulocytes (promyelocytes, myelocytes and metamyelocytes) > 1% indicates that a LEFT SHIFT is Present. LAB L100.2620 2.0-7.7 X10 3/uL Normal Absolute Neut 3.6 LAB L100.2720 0.83-4.51 X10 3/ul Normal Absolute Lymph 0.90 Performed By: #### L100.0100, L500.4050 #### [facility] [address] [place], [address] COMPREHENSIVE METABOLIC Collected: 06/25/2017 Status: F Source: [facility] 12:39 PM [facility] REPOSITORY Order Comment: Reason for Laboratory Test . TYPE CODE TESTS RESULT OUT OF RANGE REFERENCE UNITS LAB L501.0100 74-106 mg/dL Normal GLU 90 Result Comment: Please note revised GLUCOSE reference range effective 2017. LAB L501.1000 7-18 mg/dL High BUN 26 LAB L501.1100 0.55-1.02 mg/dL Normal CREAT,SERUM 0.65 Result Comment: The validity of the calculated GFR AND GFRAA in patients over 70 years has not been determined. Clinical correlation is essential. LAB L501.1110 >60 mL/min Normal EST GFR 93 Result Comment: Non- GFR Calc LAB L501.1115 >60 mL/min Normal EST GFR - AA 112 Result Comment: GFR Calc LAB L501.1300 10-20 RATIO High BUN/CRE 39.9 LAB L501.1500 6.4-8.2 g/dL T Normal PROT 6.8 LAB L501.1800 3.2-5.0 g/dL Normal ALB 3.6 LAB L501.1950 2.2-4.2 g/dL Normal GLOB 3.2 LAB L501.2000 0.9-2.4 RATIO Normal A/G 1.1 LAB L501.2200 8.5-10.1 mg/dL CA Normal 9.4 LAB L501.4100 15-37 U/L Normal AST 18 LAB L501.4305 45-117 U/L Normal ALK P 61 LAB L501.4405 13-56 U/L Normal ALT 21 Result Comment: Please note revised ALT reference range effective 2017. LAB L501.4600 0.20-1.00 mg/dL Normal T BILI 0.60 LAB L501.5300 136-145 mmol/L Normal NA 143 LAB L501.5600 3.5-5.1 mmol/L Normal K 4.2 LAB L501.5900 98-107 mmol/L Normal CL 107 LAB L501.6100 21.0-32.0 mmol/L Normal CO2 30.0 LAB L501.6200 5-15 Normal GAP 6 Performed By: #### L100.0100, L500.4050 #### [facility] [address] [facility] [place], [address] UNILAT LT SCRN Observed: 06/25/2017 Status: F Source: PAW PAW W/CAD 11:44 AM [facility] REPOSITORY [facility] Imaging Services [address] [place] [address] UNILAT LT SCRN W/CAD MR#: [id number] Acct: [id number] Name: ROBERTO RASMUSSEN Rep #: [id number] : 1935 F 81 From: Aneudy Cardenas MD PCP: Teagan Hall MD Status: REG CLI Study: UNILAT LT SCRN W/CAD Date of Exam: 06/25/17 Exam# [id number] Ordering Dr: Julieth Gutierres [employer] OPERATION MANAGER-C MAMMOGRAPHY - UNILATERAL DIAGNOSTIC: LEFT BREAST REASON FOR EXAM: Female, 81 years old. Prior right mastectomy and radiation treatment. PERTINENT HISTORY: Personal history of breast cancer. TECHNIQUE: Digital unilateral breast jelena (3D mammographic acquisition) in the CC and MLO projections. 2-D mediolateral oblique (MLO) and craniocaudad (CC) views of both breasts were obtained. CAD: Full Field Digital Mammography with Computer Added Detection was performed. COMPARISON: Comparison is made with prior study dated June 23, 2016 and June 21, 2015. FINDINGS: Breast Composition: There are scattered areas of fibroglandular density. There are no dominant masses or suspicious calcifications. A port is seen overlying the medial axillary region of the left breast. No other significant abnormalities are identified. There has been no significant change since the prior study. BI/UNILAT LT SCRN W/CAD IMPRESSION: Stable unilateral diagnostic mammogram. One year follow-up mammogram recommended. (A) ASSESSMENT CATEGORY: BIRADS Category 2: Benign. A letter regarding these results will be sent to the patient by the facility within 30 days. Approximately 10% of breast cancers are not detected by mammography. A normal mammogram should not delay biopsy of a clinically suspicious abnormality. Electronically Signed: Aneudy Cardenas MD at 14:11 EST Tel [phone], Service support , CC: Teagan Hall MD; Julieth Gutierres NP Dyer And Washer: Signed PROGRESS Observed: 06/02/2017 Status: COMPLETED Source: [place] 11:03 AM CLINIC OTHER CAMPUS REPOSITORY HNO ID: [id number] Author: Alexis Rose (Tech) Service: (none) Author Type: Customer Loyalty Representative Type: Progress Notes Filed: 06/05/2017 11:37 PM Note Text: REVIEW OF SYSTEMS: GENERAL: Well developed, well nourished. No acute distress PAIN: Negative for pain, history of chronic pain or current treatment for chronic pain conditions CARDIOVASCULAR: Negative for chest pain, leg swelling and palpations. MSK: Negative for joint pain, swelling, back pain, muscle pain. SKIN: Negative for lesions, rash, itching, metal sensitivity NEURO: Negative for seizure, trauma, numbness/tingling of extremities. ENDOCRINE: Negative for Diabetes Type 1 and Type 2 HEMATOLOGY: Negative for excessive bleeding, clots, bleeding disorders. PROGRESS Observed: 06/02/2017 Status: COMPLETED Source: [place] 11:01 AM CLINIC OTHER CAMPUS REPOSITORY HNO ID: [id number] Author: Jose Lakhani Service: (none) Author Type: Physician Type: Progress Notes Filed: 06/05/2017 11:37 PM Note Text: DOS: 04/20/17 POD: 6 weeks POV: 2 Procedure: ORIF left ankle fracture This 81 year old female presents today with her sisters for a post-op visit. Patient states they are doing well. Patient states that not having pain. Not taking any pain medication. Has been elevating the extremity as instructed and has been nonweightbearing to the left lower extremity aside from when she stumbled once and the left foot touched the ground, but she had no pain at the ankle at the time of that incident. Denies nausea, vomiting, fever, chills, shortness of breath, chest pain, or calf pain. Had her Orencia injection ~ 2 weeks ago. Relates no other complaints. PAST MEDICAL HISTORY Diagnosis Date - Malignant neoplasm of breast (female), unspecified site - Mammographic microcalcification 06/2007 left breast , BIRADS 4 - Rheumatoid arthritis(714.0) Current Outpatient Prescriptions: pantoprazole DR (PROTONIX) 40 mg tablet acetaminophen (TYLENOL) 325 mg tablet Take 1 tablet by mouth every 6 hours as needed for Pain or Fever. methotrexate 2.5 mg tablet Take 6 tablets by mouth every Wednesday. aspirin 81 mg chewable tablet Take 1 tablet by mouth once daily. hydroxychloroquine (PLAQUENIL) 200 mg tablet Take 200 mg by mouth once daily. Folic Acid 10 mg/mL Soln Take 1 mg by mouth twice daily. leucovorin 5 mg tablet Take 5 mg by mouth once each week. Methotrexate Sodium (METHOTREXATE, ANTI-RHEUMATIC,) 2.5 mg tablet Take 15 mg by mouth once daily. Omeprazole 40 mg capsule Take 40 mg by mouth once daily. ABATACEPT/MALTOSE (ORENCIA INTRAVEN.) Inject intravenously q 4 WEEKS. NAPROXEN SODIUM (ALEVE ORAL) Take by mouth twice daily. MULTI-VITAMIN ORAL Take by mouth. Vitamin I30-Gnhklvf B1 5.5-12.5 mg-mcg/5 mL Liqd Take by mouth. CALCIUM CARBONATE (CALCIUM 600 ORAL) Take by mouth twice daily. Dysart-3 Fatty Acids-Vitamin E (FISH OIL) 1,000 mg cap Take 1 capsule by mouth. Vitamin E 400 unit Tab Take by mouth once daily. DOXEPIN 25 MG CAP Take one(1) tablet daily. No current facility-administered medications for this visit. ALLERGIES No Known Allergies Objective: Patient presents nonweightbearing to left leg in wheelchair. Dressing is dry, clean, and intact with mild strike through noted. She has ulnar deviation of the fingers bilaterally. Problem focus examination to the left lower extremity: Incision site is well coapted without evidence of dehiscence. Mild edema surrounding surgical site. No erythema. No drainage. No lymphangitis. No surrounding cellulitis. Medial incision is completely healed. Scattered small scabs overlying the lateral incision. Positive minimal tenderness to palpation overlying medial and lateral malleoli left. Patient has no pain to palpation of calf. The calf is soft, supple and nontender without evidence of DVT. Negative Anderson's test. Satisfactory alignment is noted. Tyloma sub 2nd metatarsal head on the left. Pedal pulses are palpable. Capillary refill time is less than two seconds to all toes. Sensation is intact to light touch. Radiographs: 3 views left ankle were obtained and evaluated. Radiographic evaluation: Hardware intact without breakage or loosening noted. Good alignment of fracture fragments with increase in consolidation noted. Fibula out to length. Ankle mortise WNL. Assessment: Satisfactory post-operative progress Plan: The patient was educated on clinical examination findings, postoperative prognosis and protocol. All questions were answered to patient's apparent satisfaction. - Steri-Strips removed. - Tubigrip and SAMARA wrap applied. - Patient to remain NWB to the LLE with the CAM boot applied for two more weeks, to be followed by partial protected weight-bearing as tolerated with the CAM boot applied to the LLE using a walker thereafter until her next follow-up appointment. - Patient may continue ROM exercises. - Debrided left plantar forefoot tyloma with a sterile #15 blade without incident. - RTC 4 weeks with ankle x-rays at that time. Lazaro Villeda DPM PGY-II Patient was seen, evaluated, discussed and treated with the above resident, all stern components of the exam and treatment were reviewed. I agree with the findings and treatment plan as outlined the above note. Jose Lakhani DPM CNOV Observed: 06/02/2017 Status: COMPLETED Source: [place] 10:45 AM [facility] RE[facility] Office Visit (AGPOB1) ROBERTO RASMUSSEN ([id number]) 1935 F Date Time Provider Department 06/02/17 10:45 AM JOSE LAKHANI AGPOB1 During your visit today, we recorded the following information about you: Weight Height 67.1 kg 1.676 m Jose Lakhani DPM 06/05/2017 11:37 PM Signed DOS: 04/20/17 POD: 6 weeks POV: 2 Procedure: ORIF left ankle fracture This 81 year old female presents today with her sisters for a post-op visit. Patient states they are doing well. Patient states that not having pain. Not taking any pain medication. Has been elevating the extremity as instructed and has been nonweightbearing to the left lower extremity aside from when she stumbled once and the left foot touched the ground, but she had no pain at the ankle at the time of that incident. Denies nausea, vomiting, fever, chills, shortness of breath, chest pain, or calf pain. Had her Orencia injection ~ 2 weeks ago. Relates no other complaints. PAST MEDICAL HISTORY Diagnosis Date - Malignant neoplasm of breast (female), unspecified site - Mammographic microcalcification 06/2007 left breast , BIRADS 4 - Rheumatoid arthritis(714.0) Current Outpatient Prescriptions: pantoprazole DR (PROTONIX) 40 mg tablet acetaminophen (TYLENOL) 325 mg tablet Take 1 tablet by mouth every 6 hours as needed for Pain or Fever. methotrexate 2.5 mg tablet Take 6 tablets by mouth every Wednesday. aspirin 81 mg chewable tablet Take 1 tablet by mouth once daily. hydroxychloroquine (PLAQUENIL) 200 mg tablet Take 200 mg by mouth once daily. Folic Acid 10 mg/mL Soln Take 1 mg by mouth twice daily. leucovorin 5 mg tablet Take 5 mg by mouth once each week. Methotrexate Sodium (METHOTREXATE, ANTI-RHEUMATIC,) 2.5 mg tablet Take 15 mg by mouth once daily. Omeprazole 40 mg capsule Take 40 mg by mouth once daily. ABATACEPT/MALTOSE (ORENCIA INTRAVEN.) Inject intravenously q 4 WEEKS. NAPROXEN SODIUM (ALEVE ORAL) Take by mouth twice daily. MULTI-VITAMIN ORAL Take by mouth. Vitamin C37-Ftwtdjz B1 5.5-12.5 mg-mcg/5 mL Liqd Take by mouth. CALCIUM CARBONATE (CALCIUM 600 ORAL) Take by mouth twice daily. Dysart-3 Fatty Acids-Vitamin E (FISH OIL) 1,000 mg cap Take 1 capsule by mouth. Vitamin E 400 unit Tab Take by mouth once daily. DOXEPIN 25 MG CAP Take one(1) tablet daily. No current facility-administered medications for this visit. ALLERGIES No Known Allergies Objective: Patient presents nonweightbearing to left leg in wheelchair. Dressing is dry, clean, and intact with mild strike through noted. She has ulnar deviation of the fingers bilaterally. Problem focus examination to the left lower extremity: Incision site is well coapted without evidence of dehiscence. Mild edema surrounding surgical site. No erythema. No drainage. No lymphangitis. No surrounding cellulitis. Medial incision is completely healed. Scattered small scabs overlying the lateral incision. Positive minimal tenderness to palpation overlying medial and lateral malleoli left. Patient has no pain to palpation of calf. The calf is soft, supple and nontender without evidence of DVT. Negative Anderson's test. Satisfactory alignment is noted. Tyloma sub 2nd metatarsal head on the left. Pedal pulses are palpable. Capillary refill time is less than two seconds to all toes. Sensation is intact to light touch. Radiographs: 3 views left ankle were obtained and evaluated. Radiographic evaluation: Hardware intact without breakage or loosening noted. Good alignment of fracture fragments with increase in consolidation noted. Fibula out to length. Ankle mortise WNL. Assessment: Satisfactory post-operative progress Plan: The patient was educated on clinical examination findings, postoperative prognosis and protocol. All questions were answered to patient's apparent satisfaction. - Steri-Strips removed. - Tubigrip and SAMARA wrap applied. - Patient to remain NWB to the LLE with the CAM boot applied for two more weeks, to be followed by partial protected weight-bearing as tolerated with the CAM boot applied to the LLE using a walker thereafter until her next follow-up appointment. - Patient may continue ROM exercises. - Debrided left plantar forefoot tyloma with a sterile #15 blade without incident. - RTC 4 weeks with ankle x-rays at that time. Lazaro Villeda DPM PGY-II Patient was seen, evaluated, discussed and treated with the above resident, all stern components of the exam and treatment were reviewed. I agree with the findings and treatment plan as outlined the above note. JESSICA Spears Tech 06/05/2017 11:37 PM Signed REVIEW OF SYSTEMS: GENERAL: Well developed, well nourished. No acute distress PAIN: Negative for pain, history of chronic pain or current treatment for chronic pain conditions CARDIOVASCULAR: Negative for chest pain, leg swelling and palpations. MSK: Negative for joint pain, swelling, back pain, muscle pain. SKIN: Negative for lesions, rash, itching, metal sensitivity NEURO: Negative for seizure, trauma, numbness/tingling of extremities. ENDOCRINE: Negative for Diabetes Type 1 and Type 2 HEMATOLOGY: Negative for excessive bleeding, clots, bleeding disorders. Referring Provider: JOSE LAKHANI [[id number]] Allergies As of Date: 06/02/2017 (No Known Allergies) Date Reviewed: 06/02/2017 Reviewed by: Alexis Rose (Tech) - Fully Assessed Reason for Visit: Musculoskeletal Problem [69] Cmt: Lt. ankle fx. Primary Visit Diagnosis:Post-operative state [Z98.890] Other Visit Diagnosis:Closed fracture of left ankle with routine healing, subsequent encounter [S74.629Z] Order(s):XR ANKLE GENERAL 3V AP/LAT/OBL LT [3470950] Order #: [id number] Prescriptions as of 06/02/2017 Sig: DOXYCYCLINE MONOHYDRATE 100 M* LEUCOVORIN CALCIUM 15 MG TABL* PANTOPRAZOLE 40 MG TABLET,DEL* ACETAMINOPHEN 325 MG TABLET Take 1 tablet by mouth every * METHOTREXATE SODIUM 2.5 MG TA* Take 6 tablets by mouth every* ASPIRIN 81 MG CHEWABLE TABLET Take 1 tablet by mouth once d* HYDROXYCHLOROQUINE 200 MG TAB* Take 200 mg by mouth once roberta* FOLIC ACID 10 MG/ML INJECTION* Take 1 mg by mouth twice helio* LEUCOVORIN CALCIUM 5 MG TABLET Take 5 mg by mouth once each * METHOTREXATE SODIUM 2.5 MG TA* Take 15 mg by mouth once helio* OMEPRAZOLE 40 MG CAPSULE,JUAN* Take 40 mg by mouth once helio* ORENCIA INTRAVEN. Inject intravenously q 4 WEE* ALEVE ORAL Take by mouth twice daily. MULTI-VITAMIN ORAL Take by mouth. VITAMIN Y57-DBCCTAL B1 5.5 MG* Take by mouth. CALCIUM 600 ORAL Take by mouth twice daily. OMEGA-3 FATTY ACIDS-VITAMIN E* Take 1 capsule by mouth. VITAMIN E 400 UNIT TABLET Take by mouth once daily. * DOXEPIN 25 MG CAPSULE Take one(1) tablet daily. Problem List As Of Date 06/02/2017 Noted Resolved RHEUMATOID ARTHRITIS [M06.9] INVALID FOR* POSTMASTECT LYMPHEDEMA [I97.2] INVALID FOR* Ankle fracture [S82.899A] INVALID FOR* Ankle fracture, left, closed, initial encounter*INVALID FOR* More... Disposition: Return in about 4 weeks (around 06/30/2017). Follow-up and Disposition History Recorded Encounter Status:Closed by JOSE LAKHANI DPM on 06/05/17 ALLERGIES ALLERGIES DATE TYPE / CODE NAME / CODE REACTION SEVERITY SOURCE 04/11/2018 Drug No Known Unknown [facility] Allergy/416 Allergies/O18784 [facility] 647820(SNOM 0388(RXNORM) Repository ED CT) Drug NO KNOWN [facility] Class/75889 ALLERGIES Other [place] 1003(SNOMED Repository CT) NG/00380815 NO KNOWN [facility] 6(SNOMED ALLERGIES Health [facility] CT) Repository ENCOUNTERS ENCOUNTERS ADMIT/DISCHARGE ACCOUNT NUMBER ADMITTING ENCOUNTER LOCATION SOURCE CLASS 05/18/2018 [id number] Ambulatory [facility] ding:MEDOUTP Repository 04/20/2018 [id number] Ambulatory [facility] ding:MEDOUTP Repository 04/20/2018 [id number] Ambulatory [facility] ding:ONC Repository 04/11/2018 [id number] Ambulatory BMSBuilding: [place] BMS.CF.[facility] Repository 03/23/2018 [id number] [facility] Repository 03/07/2018 [id number] [facility] [place] [facility]MT[facility] Repository 02/23/2018 [id number] [facility] Repository 01/26/2018 [id number] [facility]MED[facility] Repository 12/29/2017 [id number] [facility] [place] [facility] ding[facility]MED[facility]P Repository 12/01/2017 [id number] [facility] ding:MED[facility]P Repository 11/02/2017 [id number] [facility] [place] [facility] ding[facility]MED[facility] Repository 10/29/2017/10/30/19 [id number] Ambulatory [address] Other [place] Repository 10/29/2017/10/30/19 [id number] Ambulatory [address] MEDICAL Repository CENTERBuildi ng:AGPOB1 10/06/2017 [id number] [facility] ding[facility]MED[facility] Repository 10/06/2017 [id number] [facility] [place] [facility] 09/15/2017 [id number] [facility] ding:MTLAB Repository 09/08/2017 [id number] [facility] ding[facility]MED[facility]P Repository 09/01/2017/09/02/19 [id number] [place] Hospital ding:PT Repository 08/25/2017/08/26/19 [id number] Ambulatory [facility] Other [place] Repository 08/25/2017/08/26/19 [id number] Ambulatory [address] MEDICAL Repository CENTERBuildi ng:AGPOB1 08/11/2017/08/12/19 [id number] [place]ulatory [place] [facility] Hospital ding:MEDOUTP Repository 07/21/2017/07/22/19 [id number] Ambulatory [facility] Other [place] Repository 07/21/2017/07/22/19 [id number] Ambulatory [address] MEDICAL Repository CALUMETBuildi ng:AGPOB1 07/19/2017/07/20/19 [id number] Emergency [address] ding:ED Repository 07/14/2017 [id number] Ambulatory [facility] ding:MEDOUTP Repository 06/30/2017/06/30/19 [id number] Ambulatory [address] Other [place] Repository 06/30/2017/06/30/19 [id number] Ambulatory [address] MEDICAL Repository CENTERBuildi ng:AGPOB1 06/25/2017 [id number] Ambulatory [facility] ding:MTLAB Repository 06/25/2017 [id number] Ambulatory [facility] ding:BI Repository 06/16/2017 [id number] Ambulatory [facility] ding:MEDOUTP Repository 06/02/2017/06/02/19 [id number] Ambulatory [address] Repository 06/02/2017/06/02/19 [id number] Ambulatory [address] MEDICAL Repository CALUMETBuildi ng:AGPOB1 PAYERS PAYERS ENCOUNTER GUARANTOR PAYER SUBSCRIBER SOURCE 05/18/2018 ROBERTO Juares Primary ROBERTO Blanquita BrownM[place] [id number] N Insurance:AETNA MARTYDOB: [facility] [place]: [id number] [id number] Repository 11335Jle: 330) Date:2700-60-53Gg [phone] (MM) 709311Dd [place] [address]SZ: 05/18/2018 Secondary NOT GIVENUNK [place] Insurance:SELF PAY [facility] Number: Effective Repository Date:2018-04-20 04/20/2018 ROBERTO Juares Primary ROBERTO J [place] [id number] N Insurance:AETNA NIURKAB: [facility] Number: [id number] [id number] Repository 609[address]Jwj: (330) Date:5680-01-35Ap [phone] (HP) 016921Tv [place] [address]FX: 04/20/2018 Secondary NOT GIVENUNK Jackie Insurance:SELF PAY [facility] Number: Effective Repository Date:2018-03-23 04/20/2018 ROBERTO J Primary ROBERTO J Jackie [id number] N Insurance:AETNA KEENERDOB: Community [place] MCRPolicy Number: [id number], [place] [id number] Repository 18050Bks: (330) Date:3637-51-90Ax [phone] (HP) 564918Oc [place] [address]XW: 04/20/2018 Secondary NOT GIVENUNK Jackie Insurance:SELF PAY [facility] Number: Effective Repository Date:2016-07-22 04/11/2018 ROBERTO J Primary ROBERTO J Jackie [id number] N Insurance:AETNA KEENERDOB: Community [place] RDWest [facility] Number: [id number], [place] [id number] Repository 69076Hzc: (330) Date:7263-39-02Zj [phone] (HP) 832951Jd [place] [address]FH: 04/11/2018 Secondary NOT GIVENUNK [place] Insurance:SELF PAY [facility] Number: Effective Repository Date:2018-04-11 03/23/2018 ROBERTO J Primary ROBERTO J Jackie [id number] N Insurance:AETNA KEENERDOB: Community [place] RDWest [facility] Number: [id number], [place] [id number] Repository 185[address]Xjh: (330) Date:5651-40-51Lv [phone] (HP) 940388Js [place] [address]ZS: 03/23/2018 Secondary NOT GIVENUNK [place] Insurance:SELF PAY [facility] Number: Effective Repository Date:2018-02-23 03/07/2018 ROBERTO J Primary ROBERTO J [place] [id number] N Insurance:AETNA [facility] Number: [id number] [id number] Repository 86492Kld: (330) Date:8503-42-52Py [phone] () 342990GfMonmouth, [place] [address]OF: 03/07/2018 Secondary NOT GIVENUNK [place] Insurance:SELF PAY [facility] Number: Effective Repository Date:2018-03-07 02/23/2018 ROBERTO J Primary ROBERTO J [place] [id number] N Insurance:AETNA GLENNKPDOB: [facility] Number: [id number], [place] [id number] Repository 17[address]Tyi: (330) Date:5746-25-61Ua [phone] (HP) 317443EzMonmouth, [place] [address]MP: 02/23/2018 Secondary NOT GIVENUNK [place] Insurance:SELF PAY [facility] Number: Effective Repository Date:2018-01-26 01/26/2018 ROBERTO J Primary ROBERTO J Jackie [id number] N Insurance:AETNA GLENNKPDOB: [facility] Number: [id number], [place] [id number] Repository 41614Spe: (330) Date:8275-42-36Ka [phone] (HP) 356947AdMon[place], [place] [address]TL: 01/26/2018 Secondary NOT GIVENUNK [place] Insurance:SELF PAY [facility] Number: Effective Repository Date:2017-12-29 12/29/2017 ROBERTO J Primary RBOERTO J [place] [id number] N Insurance:AETNA MARTYDOB: [facility] Number: [id number], [place] [id number] Repository 79[address]Zmw: (330) Date:7716-51-59Or [phone] (HP) 875160DcMonmouth, [place] [address]NY: 12/29/2017 Secondary NOT GIVENUNK [place] Insurance:SELF PAY [facility] Number: Effective Repository Date:2017-12-01 12/01/2017 ROBERTO J Primary ROBERTO Blanquita Mejia [id number] N Insurance:AETNA MARTYDOB: [facility] ELYRIA RDWest [facility] Number: [id number], [place] [id number] Repository 06[address]Rek: (330) Date:9730-80-71Ow [phone] (HP) 360428BkMonmouth[place] [address]RK: 12/01/2017 Secondary NOT GIVENUNK Jackie Insurance:SELF PAY [facility] Number: Effective Repository Date:2017-11-02 11/02/2017 Roberto J Primary Roberto Blanquita Mejia [id number] N Insurance:AETNA NiurkaB: [facility] ELYRIA RDWest [facility] Number: [id number], [place] [id number] Repository 196[address]Ima: (330) Date:7616-00-29Px [phone] (HP) 881049TxMonmouth[place] [address]QE: 11/02/2017 Secondary NOT GIVENUNK [place] Insurance:SELF PAY [facility] Number: Effective Repository Date:2017-10-12 10/29/2017 ROBERTO J Primary ROBERTO J [facility] MARTYDOB: Insurance:AETNA NIURKAB: [facility] [id number] MEDICARE PPOPolicy [id number] Repository N [address] Number: [place] [id number] 116[address]Rlj: (330) Date: [phone] (HP) 10/06/2017 Roberto J Primary Roberto Blanquita Mejia [id number] N Insurance:AETNA GlennenerDOB: Community [place] RDWest [facility] Number: [id number], [place] [id number] Repository 50[address]Sth: (330) Date:8900-57-81Fh [phone] (HP) 449207Bd [place] [address]UI: 10/06/2017 Secondary NOT GIVENUNK Jackie Insurance:SELF PAY [facility] Number: Effective Repository Date:2017-09-08 10/06/2017 Roberto J Primary Roberto J [place] [id number] N Insurance:AETNA KeenerDOB: [facility] [address]USH[address] HILLWest [facility]Policy Number: [id number], [place] [id number] Repository 110[address]Efr: (330) Date:7481-52-29Rx [phone] (HP) 562519GfMonmouth, [place] [address]UV: 10/06/2017 Secondary NOT GIVENUNK [place] Insurance:SELF PAY [facility] Number: Effective Repository Date:2017-10-06 09/15/2017 Roberto J Primary Roberto J Jackie [id number] N Insurance:AETNA KeenerDOB: [facility] Shanita HurdWest [facility]Policy Number: [id number], [place] [id number] Repository 056[address]Upz: (330) Date:5666-58-37Qx [phone] (HP) 414728CaMonmouth, [place] [address]VY: 09/15/2017 Secondary NOT GIVENUNK [place] Insurance:SELF PAY [facility] Number: Effective Repository Date:2017-09-15 09/08/2017 Roberto J Primary Roberto J Jackie [id number] N Insurance:AETNA GlennenerDOB: [facility] [address] HillWest [facility]Policy Number: [id number], [place] [id number] Repository 376[address]Sve: (330) Date:7090-46-05Xt [phone] (HP) 149545GqMonmouth, [place] [address]PD: 09/08/2017 Secondary NOT GIVENUNK Jackie Insurance:SELF PAY [facility] Number: Effective Repository Date:2017-08-11 09/01/2017 Roberto J Primary Roberto J [place] [id number] N Insurance:AETNA KeenerDOB: [facility] Number: [id number] [facility] wi [id number] Repository 260[address]Tma: (330) Date:7371-67-98Hi [phone] () 030127ZvMonmouth, [place] [address]YD: 09/01/2017 Secondary NOT GIVENUNK [place] Insurance:SELF PAY [facility] Number: Effective Repository Date:2017-07-22 08/25/2017 ROBERTO J Primary ROBERTO J [facility] KEENERDOB: Insurance:AETNA KEENERDOB: [facility] MEDICARE [facility] [id number] Repository N [address] Number: [facility] [id number] 04006Tvt: (330) Date: [phone] (HP) 08/11/2017 Roberto J Primary Roberto J [place] [id number] N Insurance:AETNA GlennenerDOB: [facility] RdWest [facility] Number: [id number] [facility] [place] [id number] Repository 71278Zdh: (330) Date:2014-49-50Pr [phone] (HP) 519332HeMonmouth, [place] [address]YW: 08/11/2017 Secondary NOT GIVENUNK [place] Insurance:SELF PAY [facility] Number: Effective Repository Date:2017-07-14 07/21/2017 ROBERTO J Primary ROBERTO J [facility] KEENERDOB: Insurance:AETNA KEENERDOB: [facility] MEDICARE PPOPolicy [id number] Repository N [address] Number: CHYNA ROSS [id number] 617[address]Zfd: (330) Date: [phone] (HP) 07/19/2017 Roberto J Primary Roberto J [place] [id number] N Insurance:AETNA GlennenerDOB: [facility] Number: [id number], [place] [id number] Repository 780[address]Pjn: (330) Date:3600-78-53Ho [phone] (HP) 577907Cd NAHUM Springer [address]SZ: 07/19/2017 Secondary NOT GIVENUNK Jackie Insurance:SELF PAY [facility] Number: Effective Repository Date:2017-07-19 07/14/2017 Roberto J Primary Roberto J [place] [id number] N Insurance:AETNA GlennenerDOB: [facility] Number: [id number], [place] [id number] Repository 98[address]Gzq: (330) Date:1654-67-86Ki [phone] (HP) 159875Wx NAHUM Springer [address]TG: 07/14/2017 Secondary NOT GIVENUNK [place] Insurance:SELF PAY [facility] Number: Effective Repository Date:2017-06-16 06/30/2017 ROBERTO J Primary ROBERTO J [facility] KEENERDOB: Insurance:AETALBA GENAOB: [facility] System [id number] MEDICARE PPOPolicy [id number] Repository N [facility] Number: [place] [id number] 276[address]Opx: (330) Date: [phone] (HP) 06/25/2017 Roberto J Primary Roberto J Jackie [id number] N Insurance:AETNA GlennenerD[facility]: [facility] Number: [id number], [place] [id number] Repository 77[address]Xym: (330) Date:2382-70-84Ox [phone] (HP) 078766Rq NAHUM Springer [address]HE: 06/25/2017 Secondary NOT GIVENUNK [place] Insurance:SELF PAY [facility] Number: Effective Repository Date:2017-06-25 06/25/2017 Roberto J Primary Roberto Blanquita Jackie [id number] N Insurance:AETNA GlennenerDOB: [facility] [address] [facility] Number: [id number], [place] [id number] Repository 88[address]Qqc: (330) Date:1318-73-52Ob [phone] (HP) 252867Gz [place] [address]EJ: 06/25/2017 Secondary NOT GIVENUNK [place] Insurance:SELF PAY [facility] Number: Effective Repository Date:2017-04-06 06/16/2017 Roberto J Primary Roberto Blanquita Mejia [id number] N Insurance:AETNA MartyDOB: [facility] Number: [id number], [place] [id number] Repository 479[address]Jqn: (330) Date:4999-62-46Hq [phone] (HP) 592845Ir [place] [address]HB: 06/16/2017 Secondary NOT GIVENUNK Jackie Insurance:SELF PAY [facility] Number: Effective Repository Date:2017-05-19 06/02/2017 ROBERTO Juares Primary ROBERTO J Nael GENAOB: Insurance:AETALBA GENAOB: [facility] [id number] MEDICARE PPOPolicy [id number] Rep[facility] [address] Number: [place] [id number]: [phone] Date: [phone])
== END ==
PROVIDERS: Internal Medicine Medical Oncology; Family Provider Family Medicine; PCP Family Medicine; Referring Provider Internal Medicine Rheumatology; Visit Provider Internal Medicine Rheumatology
DX: M06.9 Rheumatoid arthritis, unspecified (principal); Z85.3 Personal history of malignant neoplasm of breast; Z79.899 Other long term (current) drug therapy
CPT/HCPCS: 80053; 83735; 84100; 96413; J7050; J0129

== ENCOUNTER → 2018-05-18 10:45 | Outpatient (CLI) | payer MEDICARE, SELFPAY ==
[2018-04-20 11:02] VITALS: BMI 24.0
[2018-05-18 10:55] VITALS: BP 147/67; PULSE 77; RESP 16; TEMP 37.1; O2SAT 100; BMI 23.4
--- OUTSIDE RECORDS SUMMARY | 2018-07-23 06:02 | XMS RPT_ITS ---
:1935 Author Organization [place] Support Name Relationship Address Phone ETTNOEMI, ALIE Unavailable [address] + [place] [address] MELISSA RASMUSSEN Unavailable Unavailable + R Unavailable Unavailable Unavailable HOSTETTLER, ALIE Unavailable [address] + [place] [address] MELISSA RASMUSSEN Unavailable Unavailable + R Unavailable Unavailable Unavailable HOSTETTLER, ALIE Unavailable [address] + [place] [address] MELISSA RASMUSSEN Unavailable Unavailable + R Unavailable Unavailable Unavailable HOSTETTLER, ALIE Unavailable [address] + [place] [address] MELISSA RASMUSSEN Unavailable Unavailable + R Unavailable Unavailable Unavailable HOSTETTLER, ALIE Unavailable [address] + [place] [address] MELISSA RASMUSSEN Unavailable Unavailable + R Unavailable Unavailable Unavailable HOSTETTLER, ALIE Unavailable [address] + [place] [address] MELISSA RASMUSSEN Unavailable Unavailable + R Unavailable Unavailable Unavailable HOSTETTLER, ALIE Unavailable [address] + [place] [address] MELISSA RASMUSSEN Unavailable Unavailable + R Unavailable Unavailable Unavailable HOSTETTLER, ALIE Unavailable [address] + [place] [address] MELISSA RASMUSSEN Unavailable Unavailable + R Unavailable Unavailable Unavailable HOSTETTLER, ALIE Unavailable [address] + [place] [address] MARTY, MELISSA Unavailable Unavailable + R Unavailable Unavailable Unavailable HOSTETTLER, ALIE Unavailable [address] + [place] [address] MARTY, MELISSA Unavailable Unavailable + R Unavailable Unavailable Unavailable HOSTETTLER, ALIE Unavailable [address] + [place] [address] MARTY, MELISSA Unavailable Unavailable + R Unavailable Unavailable Unavailable HOSTETTLER, ALIE Unavailable [address] + [place] [address] MARTY, MELISSA Unavailable Unavailable + R Unavailable Unavailable Unavailable HOSTETTLER, ALIE Unavailable [address] + [place] [address] MARTY, MELISSA Unavailable Unavailable + R Unavailable Unavailable Unavailable HOSTETTLER, ALIE Unavailable [address] + [place] [address] MARTY, MELISSA Unavailable Unavailable + [place] Unavailable Unavailable Unavailable HOSTETTLER, ALIE Unavailable [address] + [place] [address] MARTY, MELISSA Unavailable Unavailable + [place] Unavailable Unavailable Unavailable HOSTETTLER, ALIE Unavailable [address] + [place] [address] MARTY, MELISSA Unavailable Unavailable + [place] Unavailable Unavailable Unavailable HOSTETTLER, ALIE Unavailable [address] + [place] [address] MARTY, MELISSA Unavailable Unavailable + [place] Unavailable Unavailable Unavailable HOSTETTLER, ALIE Unavailable [address] + [place] [address] MARTY, MELISSA Unavailable . + [place] . R Unavailable Unavailable Unavailable HOSTETTLER, ALIE Unavailable [address] + [place] [address] MARTY, MELISSA Unavailable . + [place] . R Unavailable Unavailable Unavailable HOSTETTLER, ALIE Unavailable [address] + [place] [address] MARTY, MELISSA Unavailable . + [place] . R Unavailable Unavailable Unavailable HOSTETTLER, ALIE Unavailable [address] + [place] [address] MARTY, MELISSA Unavailable . + [place] . R Unavailable Unavailable Unavailable HOSTETTLER, ALIE Unavailable [address] + [place] [address] MARTY, MELISSA Unavailable . + [place] . R Unavailable Unavailable Unavailable Care Team Providers Name Role Phone Vellanki, Leena Attending Unavailable Vellanki, Leena Referring Unavailable Jolliff, Teagan Primary Care Unavailable Matteo Jonas Attending Unavailable Jolliff, Teagan Primary Care Unavailable Jolliff, Teagan Referring Unavailable Vellanki, Leena Attending Unavailable Vellanki, Leena Referring Unavailable Jolliff, Teagan Primary Care Unavailable Bhavik, Julieth Attending Unavailable Bhavik, Julieth Referring Unavailable Jolliff, Teagan Primary Care Unavailable Vellanki, Leena Attending Unavailable Vellanki, Leena Referring Unavailable Jolliff, Teagan Primary Care Unavailable Vellanki, Leena Attending Unavailable Vellanki, Leena Referring Unavailable Jolliff, Teagan Primary Care Unavailable Jolliff, Teagan Primary Care Unavailable Yandel Nguyen Attending Unavailable MelissaMiguel Attending Unavailable Jolliff, Teagan Primary Care Unavailable MelissaMiguel Referring Unavailable Vellanki, Leena Attending Unavailable Vellanki, [...] Referring Unavailable Jolliff, Teagan Primary Care Unavailable PrahMatteo Attending Unavailable Vellanki, Leena Attending Unavailable Vellanki, [...] Primary Care Unavailable PraMatteo viveros Attending Unavailable Jolliff, Teagan Referring Unavailable Jolliff, Teagan Primary Care Unavailable Prajackeline Matteo Consulting Unavailable DOUGLASMAN, JOSE Attending Unavailable KISHMAN, JOSE Referring Unavailable KISHMAN, JOSE Attending Unavailable KISHMAN, JOSE Attending Unavailable KISHMAN, JOSE Referring Unavailable KISHMAN, JOSE Attending Unavailable KISHMAN, JOSE Referring Unavailable KISHMAN, JOSE Attending Unavailable KISHMAN, JOSE L Attending Unavailable KISHMAN, [...] long [place], Active [place] term (current) drug [facility] therapy / Hospital Z79.899(ICD-10) Repository 04/20/2018 Unknown Z85.3 - Personal [place], Active [place] history of malignant [facility] neoplasm of breast / Hospital Z85.3(ICD-10) Repository 04/20/2018 Unknown C50.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 Active [place] neoplasm of Community unspecified site of Hospital right female breast Repository / C50.911(ICD-10) 04/11/2018 Unknown M85.80 - Other Matteo Jonas Active [place] specified disorders Community of bone density and Hospital structure, Repository unspecified site / M85.80(ICD-10) 03/07/2018 Unknown M05.70 - Rheumatoid Vellanki, Active [place] arthritis with [facility] Community rheumatoid factor of Hospital unspecified site Repository without organ or systems involvement / M05.70(ICD-10) 03/07/2018 Unknown M50.30 - Other Vellanki, Active [place] 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, Hospital unspecified cervical Repository region / M50.30(ICD-10) 10/27/2017 Unknown M06.9 - Rheumatoid [place]anki, Active [place] arthritis, [facility] unspecified / Hospital M06.9(ICD-10) Repository 09/08/2017 Unknown S43.014D - Anterior MelissaMiguel Active [place] dislocation of right Community humerus, subsequent Hospital encounter / Repository S43.014D(ICD-10) 08/25/2017 Active Unknown / LESVIA, Active [place] UNK(Unknown) [facility] Other [place] Repository 07/19/2017 Unknown S43.006A - Wendy, Active [place] Unspecified [facility] dislocation of Hospital unspecified shoulder Repository joint, initial encounter / S43.006A(ICD-10) 04/18/2017 Active Other fracture of KIWILLIAMMAN, Active [place] left lower leg, [facility] Other subsequent encounter [place] for closed fracture Repository with routine healing / S82.892D(ICD-10) 06/02/2017 Active Other specified KISHMAN, Active [place] postprocedural [facility] Other states / [place] Z98.890(ICD-10) Repository 04/18/2017 Admitting Unknown / KISHMAN, Active [place] General diagnosis UNK(Unknown) [facility] System Repository PROCEDURES PROCEDURES No Procedure Records FoundRESULTS RESULTS COMPREHENSIVE METABOLIC Collected: 04/20/2018 Status: F Source: [place] PROFIL 11:00 AM [facility] HOSPITAL REPOSITORY Order Comment: Reason [...] Performed By: #### L500.4050, L501.2300, L501.5200 #### [facility] [address] [place], [address] PHOSPHORUS Collected: 04/20/2018 Status: F Source: [place] 11:00 AM [facility] REPOSITORY Order Comment: Reason for Laboratory Test . TYPE CODE TESTS RESULT OUT OF RANGE REFERENCE UNITS LAB L501.2300 2.5-4.9 mg/dL Low PHOS 2.2 Performed By: #### L500.4050, L501.2300, L501.5200 #### [facility] [address] [place], [address] MAGNESIUM Collected: 04/20/2018 Status: F Source: [place] 11:00 AM [facility] REPOSITORY Order Comment: Reason for Laboratory Test . TYPE CODE TESTS RESULT OUT OF RANGE REFERENCE UNITS LAB L501.5200 1.6-2.6 mg/dL Normal MG 1.8 Performed By: #### L500.4050, L501.2300, L501.5200 #### [facility] [address] [place], [address] ONCOLOGY VISIT REPORT Observed: 04/11/2018 Status: F Source: [place] 2:13 PM [facility] REPOSITORY [facility] Medical Oncology [address] 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 [place], [place], [address] COMPREHENSIVE METABOLIC Collected: 04/11/2018 Status: F Source: [facility] 1:22 PM [facility] REPOSITORY Order Comment: Reason for Laboratory Test [...] 5 Performed By: #### L500.4050, L501.5200 #### [facility] [address] [place], [address] MAGNESIUM Collected: 04/11/2018 Status: F Source: [place] 1:22 PM [facility] REPOSITORY Order Comment: Reason for Laboratory Test . TYPE CODE TESTS RESULT OUT OF RANGE REFERENCE UNITS LAB L501.5200 1.6-2.6 mg/dL Normal MG 1.7 Performed By: #### L500.4050, L501.5200 #### [facility] [address] [place], [address] CBC W/DIFF, AUTOMATED Collected: 03/07/2018 Status: F Source: [place] 11:50 AM [facility] REPOSITORY TYPE CODE TESTS RESULT OUT OF [...] Lymph 1.00 Performed By: #### L100.0100 #### [facility] [address] [place], [address] COMPREHENSIVE METABOLIC Collected: 03/07/2018 Status: F Source: [facility] 11:50 AM [facility] REPOSITORY TYPE CODE TESTS RESULT OUT OF [...] GAP 8 Performed By: #### L500.4050 #### [facility] [address] [facility] [place], [address] CBC W/DIFF, AUTOMATED Collected: 12/01/2017 Status: F Source: [place] 11:05 AM [facility] REPOSITORY TYPE CODE TESTS RESULT OUT OF [...] Lymph 0.98 Performed By: #### L100.0100 #### [facility] [place], [place], [address] COMPREHENSIVE METABOLIC Collected: 12/01/2017 Status: F Source: [facility] 11:05 AM [facility] REPOSITORY TYPE CODE TESTS RESULT OUT OF [...] GAP 5 Performed By: #### L500.4050 #### [facility] [address] [place], [address] PROGRESS Observed: 10/29/2017 Status: COMPLETED Source: [place] 1:49 PM CLINIC OTHER CAMPUS REPOSITORY HNO ID: [id number] Author: Jose Lakhani Service: (none) Author Type: [...] daily. MULTI-VITAMIN ORAL Take by mouth. Vitamin G74-Tsozdzg B1 5.5-12.5 mg-mcg/5 mL Liqd Take by mouth. CALCIUM CARBONATE (CALCIUM 600 ORAL) Take by mouth twice daily. [place]-3 Fatty Acids-Vitamin E (FISH OIL) 1,000 mg [...] DPM PROGRESS Observed: 10/29/2017 Status: COMPLETED Source: [place] 1:09 PM [facility] REPOSITORY HNO ID: [id number] Author: Alexis Rose (Tech) Service: (none) Author Type: Sports Book Server Type: Progress Notes Filed: 10/29/2017 1:51 PM [...] disorders. CNOV Observed: 10/29/2017 Status: COMPLETED Source: [place] 1:00 PM [facility] REPOSITORY Office Visit (AGPOB1) ROBERTO RASMUSSEN ([id number]) 1935 F Date Time Provider Department 10/29/17 [...] daily. MULTI-VITAMIN ORAL Take by mouth. Vitamin W91-Gkjumys B1 5.5-12.5 mg-mcg/5 mL Liqd Take by mouth. CALCIUM CARBONATE (CALCIUM 600 ORAL) Take by mouth twice daily. [place]-3 Fatty Acids-Vitamin E (FISH OIL) 1,000 mg [...] left ankle with routine healing, subsequent encounter [E82.081O] Order(s):XR ANKLE GENERAL 3V AP/LAT/OBL LT [[id number]] Order #: [id number] Prescriptions as of 10/29/2017 Sig: DOXYCYCLINE MONOHYDRATE [...] daily. MULTI-VITAMIN ORAL Take by mouth. VITAMIN Z18-CRGSFWQ B1 5.5 MG* Take by mouth. CALCIUM [...] DOWNTIME REPORT Observed: 10/21/2017 Status: F Source: [place] 12:10 PM [facility] REPOSITORY [facility] Medical Records Department [address] [place] [address] Downtime Report MR#: [id number] Acct: [id number] Name: ROBERTO RASMUSSEN Rep #: [id number] : 1935 82 From: Nabeel Jackson PCP: Teagan Hall MD Status: REG RCR This patient was seen during an EMR downtime October 04, 2017 - October 11, 2017. This patient may have a combination of paper and electronic documentation or all paper documentation. All documentation is viewable within the e-chart portion of [employer] for each patient visit. DOWNTIME REPORT Observed: 10/21/2017 Status: F Source: [place] 12:07 PM [facility] REPOSITORY [facility] Medical Records Department [address] [place] [address] Downtime Report MR#: [id number] Acct: [id number] Name: ROBERTO RASMUSSEN Rep #: [id number] : 1935 82 From: Nabeel Jackson PCP: Teagan Hall MD Status: REG CLI This patient was seen during an EMR downtime October 04, 2017 - October 11, 2017. This patient may have a combination of paper and electronic documentation or all paper documentation. All documentation is viewable within the e-chart portion of [employer] for each patient visit. CBC W/DIFF, AUTOMATED Collected: 10/06/2017 Status: F Source: [place] 10:30 AM [facility] REPOSITORY Order Comment: RESULT(S) PREVIOUSLY REPORTED ON [...] Lymph 1.02 Performed By: #### L100.0100 #### [facility] [address] [place], [address] COMPREHENSIVE METABOLIC Collected: 10/06/2017 Status: F Source: [place] [facility] 10:30 AM [facility] REPOSITORY Order Comment: RESULT(S) PREVIOUSLY REPORTED ON [...] 6 Performed By: #### L500.4050, L501.5200 #### [facility] [address] [place], [address] MAGNESIUM Collected: 10/06/2017 Status: F Source: [place] 10:30 AM [facility] REPOSITORY Order Comment: RESULT(S) PREVIOUSLY REPORTED ON MANUAL REQUISITION DURING DOWNTIME. TYPE CODE TESTS RESULT OUT OF RANGE REFERENCE UNITS LAB L501.5200 1.6-2.6 mg/dL Normal MG 1.7 Performed By: #### L500.4050, L501.5200 #### [facility] [address] [place], [address] CBC W/DIFF, AUTOMATED Collected: 09/15/2017 Status: F Source: [place] 11:24 AM [facility] REPOSITORY TYPE CODE TESTS RESULT OUT OF [...] Lymph 0.98 Performed By: #### L100.0100 #### [facility] [address] [place], [place], [address] COMPREHENSIVE METABOLIC Collected: 09/15/2017 Status: F Source: [facility] 11:24 AM [facility] REPOSITORY TYPE CODE TESTS RESULT OUT OF [...] GAP 5 Performed By: #### L500.4050 #### [facility] [address] [place], [address] PROGRESS Observed: 08/25/2017 Status: COMPLETED Source: [place] 5:54 PM CLINIC OTHER CAMPUS REPOSITORY HNO ID: [id number] Author: Jose Lakhani Service: (none) Author Type: [...] daily. MULTI-VITAMIN ORAL Take by mouth. Vitamin M18-Srkkydu B1 5.5-12.5 mg-mcg/5 mL Liqd Take by mouth. CALCIUM CARBONATE (CALCIUM 600 ORAL) Take by mouth twice daily. [place]-3 Fatty Acids-Vitamin E (FISH OIL) 1,000 mg [...] DPM PROGRESS Observed: 08/25/2017 Status: COMPLETED Source: [place] 11:34 AM [facility] REPOSITORY HNO ID: [id number] Author: June Estrada (Anam) Service: (none) Author Type: Project Inspector Type: Progress Notes Filed: 08/25/2017 5:58 PM [...] disorders. CNOV Observed: 08/25/2017 Status: COMPLETED Source: [place] 11:[address] [facility] Office Visit (AGPOB1) ROBERTO RASMUSSEN ([id number]) 1935 F Date Time Provider Department 08/25/17 11:00 AM [facility] During your visit today, we recorded [...] daily. MULTI-VITAMIN ORAL Take by mouth. Vitamin Y40-Wlfnqgl B1 5.5-12.5 mg-mcg/5 mL Liqd Take by mouth. CALCIUM CARBONATE (CALCIUM 600 ORAL) Take by mouth twice daily. [place]-3 Fatty Acids-Vitamin E (FISH OIL) 1,000 mg [...] Jose Lakhani DPM Referring Provider: JOSE LAKHANI [[id number]] Allergies As of Date: 08/25/2017 (No Known Allergies) Date Reviewed: 08/25/2017 Reviewed by: Jose Lakhani - Fully Assessed Reason for Visit: Follow Up [171] Cmt: left ankle fx Primary Visit Diagnosis:Closed fracture of left ankle with routine healing, subsequent encounter [F14.579L] Order(s):XR ANKLE GENERAL 3V AP/LAT/OBL LT [[id number]] Order #: [id number] Prescriptions as of 08/25/2017 Sig: DOXYCYCLINE MONOHYDRATE [...] daily. MULTI-VITAMIN ORAL Take by mouth. VITAMIN M06-CJRNHQM B1 5.5 MG* Take by mouth. CALCIUM 600 ORAL Take by mouth twice daily. [place]-3 FATTY ACIDS-VITAMIN E* Take 1 capsule by mouth. VITAMIN E 400 UNIT TABLET Take by mouth once daily. * DOXEPIN 25 MG CAPSULE Take one(1) tablet daily. Problem List As Of Date 08/25/2017 Noted Resolved RHEUMATOID ARTHRITIS [M06.9] INVALID FOR* POSTMASTECT LYMPHEDEMA [I97.2] INVALID FOR* Ankle fracture [S82.891P] INVALID FOR* Ankle fracture, left, closed, initial encounter*INVALID FOR* More... Disposition: Return in about 2 months (around 10/25/2017). Follow-up and Disposition History Recorded Encounter Status:Closed by JOSE LAKHANI DPM on 08/25/17 INITAL EVALUATION (1) Observed: 07/28/2017 Status: F Source: [place] - [place] 2:05 PM [facility] REPOSITORY [facility] [address] [place] [address] [address] [place] [address] Fax REHABILITATION SERVICES INITIAL EVALUATION MR#: [id number] Acct: [id number] Name: ROBERTO RASMUSSEN Rep #: [id number] : 1935 81 From: David Fernandes PT, ATC Referring Dr.: Miguel Torres MD Status: REG RCR Insurance: [employer] [facility] SELF PAY INSURANCE Patient's Visit [...] to be FAXED BACK to us at [phone] for Medicare purposes. Please let me know if there are questions or concerns regarding this plan of care. Physician Signature: Date: <Electronically signed by David Fernandes PT, ATC> 07/28/17 1404 CC: Teagan Hall MD; Miguel Torres MD [facility] Signed For Medicare only, by signing this I certify the plan of care. Physicians Signature Date PROGRESS Observed: 07/21/2017 Status: COMPLETED Source: [place] 11:18 AM CLINIC OTHER CAMPUS REPOSITORY O ID: [id number] Author: Jose Lakhani Service: (none) Author Type: [...] daily. MULTI-VITAMIN ORAL Take by mouth. Vitamin J51-Gxxdztm B1 5.5-12.5 mg-mcg/5 mL Liqd Take by mouth. CALCIUM CARBONATE (CALCIUM 600 ORAL) Take by mouth twice daily. [place]-3 Fatty Acids-Vitamin E (FISH OIL) 1,000 mg [...] DPM PROGRESS Observed: 07/21/2017 Status: COMPLETED Source: [place] 11:14 AM [facility] REPOSITORY HNO ID: [id number] Author: Vero Ram Service: (none) Author Type: [...] disorders. CNOV Observed: 07/21/2017 Status: COMPLETED Source: [place] 11:00 AM [facility] REPOSITORY Office Visit (AGPOB1) ROBERTO RASMUSSEN ([id number]) 1935 F Date Time Provider Department 07/21/17 [...] daily. MULTI-VITAMIN ORAL Take by mouth. Vitamin Y03-Kqottyg B1 5.5-12.5 mg-mcg/5 mL Liqd Take by mouth. CALCIUM CARBONATE (CALCIUM 600 ORAL) Take by mouth twice daily. [place]-3 Fatty Acids-Vitamin E (FISH OIL) 1,000 mg [...] Jose Lakhani DPM Referring Provider: JOSE LAKHANI [[id number]] Allergies As of Date: 07/21/2017 (No Known Allergies) Date Reviewed: 07/21/2017 Reviewed by: Jose Lakhani - Fully Assessed Reason for Visit: Post-Op Visit [1236] Cmt: ORIF left ankle fracture 04/20/2018 Primary Visit Diagnosis:Post-operative state [Z98.890] Other Visit Diagnosis:Closed fracture of left ankle with routine healing, subsequent encounter [I78.091Y] Order(s):XR ANKLE GENERAL 3V AP/LAT/OBL LT [[id number]] Order #: [id number] Prescriptions as of 07/21/2017 Sig: DOXYCYCLINE MONOHYDRATE [...] daily. MULTI-VITAMIN ORAL Take by mouth. VITAMIN D85-SPDGXVJ B1 5.5 MG* Take by mouth. CALCIUM [...] POSTMASTECT LYMPHEDEMA [I97.2] INVALID FOR* Ankle fracture [S82.881Q] INVALID FOR* Ankle fracture, left, closed, initial encounter*INVALID FOR* More... Disposition: Return in about 5 weeks (around 08/25/2017). Follow-up and Disposition History Recorded Encounter Status:Closed by JOSE LAKHANI DPM on 07/22/17 EMERGENCY DEPARTMENT Observed: 07/19/2017 Status: F Source: [place] SUMMARY 6:52 PM [facility] REPOSITORY [facility] Medical Records Department [address] [place] [address] Emergency Department Summary 07/19/17 1708 MR#: [id number] Acct: [id number] Name: ROBERTO RASMUSSEN Rep #: [id number] : 1935 81 From: Yandel Nguyen MD [...] it well. This note was generated with [employer] dictation software. It may contain incorrect words, spelling, and punctuation that were not noted in review of the chart prior to signing ED Disposition - Plan for ED Patient: Disposition: [facility] Chief Complaint: Fall Instructions: ED Dislocation Shoulder [...] your Primary Care Provider. Call [facility] ([phone]) or report to the closest Emergency Room. Call 911 if necessary. 07/19/17 2842 <Electronically signed by Yandel Nguyen MD> Date Yandel Nguyen MD Cosigner Signature (If Indicated): Date CC: Teagan Hall MD SHOULDER MIN 2 VIEWS Observed: 07/19/2017 Status: F Source: [place] 4:04 PM [facility] REPOSITORY [facility] Imaging Services [address] [place] [address] Shoulder min 2 Views MR#: [id number] Acct: [id number] Name: ROBERTO RASMUSSEN Rep #: [id number] : 1935 F 81 From: Melissa Rebolledo MD PCP: Teagan Hall MD Status: REG ER Study: Shoulder min 2 Views Date of Exam: 07/19/17 Exam# [id number] Ordering Dr: Yandel Nguyen MD STUDY: X-RAY [...] CC: Teagan Hall MD; Yandel Nguyen MD [employer] Farm Manager: Signed BRAIN/HEAD WITHOUT Observed: 07/19/2017 Status: F Source: [place] CONTRAST 2:59 PM [facility] HOSPITAL REPOSITORY [facility] Imaging Services [address] [address] Brain/Head without Contrast MR#: [id number] Acct: [id number] Name: ROBERTO RASMUSSEN Rep #: [id number] : 1935 F 81 From: Aneudy Cardenas MD PCP: Teagan Hall MD Status: REG ER Study: Brain/Head without Contrast Date of Exam: 07/19/17 Exam# [id number] Ordering Dr: Yandel Nguyen MD STUDY: CT [...] [place]y Cardenas MD at 15:51 EDT Tel [phone], Service support , CC: Teagan Hall MD; Yandel Nguyen MD [employer] Farm Manager: Signed SHOULDER MIN 2 VIEWS Observed: 07/19/2017 Status: F Source: [place] 2:59 PM [facility] REPOSITORY [facility] Imaging Services [address] [place] [address] Shoulder min 2 Views MR#: [id number] Acct: [id number] Name: ROBERTO RASMUSSEN Rep #: [id number] : 1935 F 81 From: Melissa Rebolledo MD PCP: Teagan Hall MD Status: REG ER Study: Shoulder min 2 Views Date of Exam: 07/19/17 Exam# [id number] Ordering Dr: Yandel Nguyen MD STUDY: X-RAY [...] CC: Teagan Hall MD; Yandel Nguyen MD [employer] Farm Manager: Signed PROGRESS Observed: 06/30/2017 Status: COMPLETED Source: [place] 11:18 AM CLINIC OTHER CAMPUS REPOSITORY HNO ID: [id number] Author: Jose Lakhani Service: (none) Author Type: [...] daily. MULTI-VITAMIN ORAL Take by mouth. Vitamin U71-Kunpjfj B1 5.5-12.5 mg-mcg/5 mL Liqd Take by mouth. CALCIUM CARBONATE (CALCIUM 600 ORAL) Take by mouth twice daily. [place] [place]-3 Fatty Acids-Vitamin E (FISH OIL) 1,000 mg [...] DPM CNOV Observed: 06/30/2017 Status: COMPLETED Source: [place] 11:15 AM [facility] OTHER [facility] REPOSITORY Office Visit (AGPOB1) ROBERTO RASMUSSEN ([id number]) 1935 F Date Time Provider Department 06/30/17 11:15 AM JOSE LAKHANI AGPOB1 During your visit today, we recorded the following information about you: Respiration Weight Height 16/minute 67.1 kg 1.676 m Garfield Goodson StudyRoom 06/30/2017 2:25 PM Signed REVIEW OF SYSTEMS: [...] daily. MULTI-VITAMIN ORAL Take by mouth. Vitamin I21-Lkakjna B1 5.5-12.5 mg-mcg/5 mL Liqd Take by mouth. CALCIUM CARBONATE (CALCIUM 600 ORAL) Take by mouth twice daily. [place]-3 Fatty Acids-Vitamin E (FISH OIL) 1,000 mg [...] left ankle with routine healing, subsequent encounter [Y24.931W] Order(s):XR ANKLE GENERAL 3V AP/LAT/OBL LT [[id number]] Order #: [id number] Prescriptions as of 06/30/2017 Sig: DOXYCYCLINE MONOHYDRATE [...] daily. MULTI-VITAMIN ORAL Take by mouth. VITAMIN W71-SHSNVXN B1 5.5 MG* Take by mouth. CALCIUM [...] 06/30/17 PROGRESS Observed: 06/30/2017 Status: COMPLETED Source: [place] 11:04 AM [facility] OTHER CAMPUS REPOSITORY HNO ID: [id number] Author: Garfield Goodson StudyRoom Service: (none) Author Type: (none) Type: Progress [...] W/DIFF, AUTOMATED Collected: 06/25/2017 Status: F Source: [place] 12:39 PM [facility] REPOSITORY Order Comment: Reason for Laboratory Test [...] 0.90 Performed By: #### L100.0100, L500.4050 #### [facility] [address] [place], [address] COMPREHENSIVE METABOLIC Collected: 06/25/2017 Status: F Source: [facility] 12:39 PM [facility] REPOSITORY Order Comment: Reason for Laboratory Test [...] 6 Performed By: #### L100.0100, L500.4050 #### [facility] [address] [place], [address] UNILAT LT SCRN Observed: 06/25/2017 Status: F Source: [place] W/CAD 11:44 AM [facility] REPOSITORY [facility] Imaging Services [address] [place] [address] UNILAT LT SCRN W/CAD MR#: [id number] Acct: [id number] Name: ROBERTO RASMUSSEN Rep #: [id number] : 1935 F 81 From: Aneudy Cardenas MD PCP: Teagan Hall MD Status: REG CLI Study: UNILAT LT SCRN W/CAD Date of Exam: 06/25/17 Exam# [id number] Ordering Dr: Julieth Gutierres RESIDENTIAL ROOFER HELPER-C MAMMOGRAPHY - UNILATERAL DIAGNOSTIC: LEFT BREAST REASON [...] Aneudy Cardenas MD at 14:11 EST Tel [phone], Service support , CC: Teagan Hall MD; Julieth Gutierres NP [employer] Grain Or Livestock Farm Manager: Signed PROGRESS Observed: 06/02/2017 Status: COMPLETED Source: [place] 11:03 AM [facility] OTHER CAMPUS REPOSITORY HNO ID: [id number] Author: Alexis Rose (Tech) Service: (none) Author Type: Sports Book Server Type: Progress Notes Filed: 06/05/2017 11:37 PM [...] disorders. PROGRESS Observed: 06/02/2017 Status: COMPLETED Source: [place] 11:01 AM [facility] OTHER CAMPUS REPOSITORY HNO ID: [id number] Author: Jose Lakhani Service: (none) Author Type: [...] daily. MULTI-VITAMIN ORAL Take by mouth. Vitamin K35-Gyjneje B1 5.5-12.5 mg-mcg/5 mL Liqd Take by mouth. CALCIUM CARBONATE (CALCIUM 600 ORAL) Take by mouth twice daily. [place]-3 Fatty Acids-Vitamin E (FISH OIL) 1,000 mg [...] DPM CNOV Observed: 06/02/2017 Status: COMPLETED Source: [place] 10:45 AM [facility] [place] REPOSITORY Office Visit (AGPOB1) ROBERTO RASMUSSEN ([id number]) 1935 F Date Time Provider Department 06/02/17 [...] daily. MULTI-VITAMIN ORAL Take by mouth. Vitamin U48-Uvhmzna B1 5.5-12.5 mg-mcg/5 mL Liqd Take by mouth. CALCIUM CARBONATE (CALCIUM 600 ORAL) Take by mouth twice daily. [place]-3 Fatty Acids-Vitamin E (FISH OIL) 1,000 mg [...] clots, bleeding disorders. Referring Provider: JOSE LAKHANI [[id number]] Allergies As of Date: 06/02/2017 (No Known Allergies) Date Reviewed: 06/02/2017 Reviewed by: Alexis Rose (Tech) - Fully Assessed Reason for Visit: Musculoskeletal Problem [69] Cmt: Lt. ankle fx. Primary Visit Diagnosis:Post-operative state [Z98.890] Other Visit Diagnosis:Closed fracture of left ankle with routine healing, subsequent encounter [O74.870B] Order(s):XR ANKLE GENERAL 3V AP/LAT/OBL LT [[id number]] Order #: [id number] Prescriptions as of 06/02/2017 Sig: DOXYCYCLINE MONOHYDRATE [...] daily. MULTI-VITAMIN ORAL Take by mouth. VITAMIN P48-XELMAON B1 5.5 MG* Take by mouth. CALCIUM [...] SEVERITY SOURCE 04/11/2018 Drug No Known Unknown [facility] Allergy/416 Allergies/L99444 [facility] 148461(SNOM 0388(RXNORM) Repository ED CT) Drug NO KNOWN [facility] Class/98826 ALLERGIES Other [place] 1003(SNOMED Repository CT) NG/75770424 NO KNOWN [facility] 6(SNOMED ALLERGIES Health [facility] CT) Repository ENCOUNTERS ENCOUNTERS ADMIT/DISCHARGE ACCOUNT NUMBER ADMITTING ENCOUNTER LOCATION SOURCE CLASS 05/18/2018 [id number] Ambulatory [facility] ding:MEDOUTP Repository 04/20/2018 [id number] Ambulatory [facility] ding:MEDOUTP Repository 04/20/2018 [id number] Ambulatory [facility] ding:ONC Repository 04/11/2018 [id number] Ambulatory BMSBuilding: [place] BMS.CF[facility] Repository 03/23/2018 [id number] [facility]MED[facility] Repository 03/07/2018 [id number] [facility] [place] [facility] ding[facility]MT[facility] Repository 02/23/2018 [id number] [facility] Repository 01/26/2018 [id number] [facility] ding[facility] Repository 12/29/2017 [id number] [facility] [place] [facility] ding:MED[facility]P Repository 12/01/2017 [id number] [facility] ding:MED[facility] Repository 11/02/2017 [id number] [facility] [place] [facility] Repository 10/29/2017/10/30/19 [id number] Ambulatory [address] Other [place] Repository 10/29/2017/10/30/19 [id number] Ambulatory [address] MEDICAL Repository CENTERBuildi ng:AGPOB1 10/06/2017 [id number] [facility] ding[facility]MED[facility] Repository 10/06/2017 [id number] Ambulatory BMSBuilding: [place] B[facility]ritical access hospital Repository 09/15/2017 [id number] [facility] ding:MTLAB Repository 09/08/2017 [id number] [facility] ding:MED[facility]P Repository 09/01/2017/09/02/19 [id number] Ambulatory [place] Hospital ding:PT Repository 08/25/2017/08/26/19 [id number] [facility]ulatory [facility] Other [place] Repository 08/25/2017/08/26/19 [id number] Ambulatory [address] MEDICAL Repository CENTERBuildi ng:AGPOB1 08/11/2017/08/12/19 [id number] [place] [facility] ding:MEDOUTP Repository 07/21/2017/07/22/19 [id number] Ambulatory [facility] Other [place] Repository 07/21/2017/07/22/19 [id number] Ambulatory [address] MEDICAL Repository [place]Build[place] ng:AGPOB1 07/19/2017/07/20/19 [id number] Emergency [address] ding:ED Repository 07/14/2017 [id number] Ambulatory [facility] ding:MEDOUTP Repository 06/30/2017/06/30/19 [id number] Ambulatory [address] Other [place] Repository 06/30/2017/06/30/19 [id number] Ambulatory [address] MEDICAL Repository CENTERBuildi ng:AGPOB1 06/25/2017 [id number] Ambulatory [facility] ding:MTLAB Repository 06/25/2017 [id number] Ambulatory [facility] ding:BI Repository 06/16/2017 [id number] Ambulatory [facility] ding:MEDOUTP Repository 06/02/2017/06/02/19 [id number] Ambulatory [address] Repository 06/02/2017/06/02/19 [id number] Ambulatory [address] MEDICAL Repository ASHLANDBuildi ng:AGPOB1 PAYERS PAYERS ENCOUNTER GUARANTOR PAYER SUBSCRIBER SOURCE 05/18/2018 ROBERTO Juares Primary ROBERTO Blanquita [place] [id number] N Insurance:AETNA MARTYDOB: [facility] Number: [id number] [place], [place] [id number] Repository [address]Vwg: 330) Date:7886-72-32Or [phone] (VZ) [id number] [place] [address]EE: 05/18/2018 Secondary NOT GIVENUNK [place] Insurance:SELF PAY [facility] Number: Effective Repository Date:2018-04-20 04/20/2018 ROBERTO Juares Primary ROBERTO J [place] [id number] N Insurance:AETNA NIURKAB: [facility] Number: [id number] [place], [place] [id number] Repository [address]Igo: (330) Date:6846-28-89Qu [phone] (HP) 622249Hb [place] [address]IT: 04/20/2018 Secondary NOT GIVENUNK Jackie Insurance:SELF PAY [facility] Number: Effective Repository Date:2018-03-23 04/20/2018 ROBERTO J Primary ROBERTO J Jackie [id number] N Insurance:AETNA KEENERDOB: Community [place] R[address]est MCRPolicy Number: [id number] [place], [place] [id number] Repository [address]Yuz: (330) Date:5029-82-58Xj [phone] (HP) 744210Pd [place] [address]AD: 04/20/2018 Secondary NOT GIVENUNK Jackie Insurance:SELF PAY [facility] Number: Effective Repository Date:2016-07-22 04/11/2018 ROBERTO J Primary ROBERTO J Jackie [id number] N Insurance:AETNA KEENERDOB: Community [place] RDWest [facility] Number: [id number] [place], [place] [id number] Repository [address]Mja: (330) Date:1814-68-36Wo [phone] (HP) 075882Wk [place] [address]YQ: 04/11/2018 Secondary NOT GIVENUNK Jackie Insurance:SELF PAY [facility] Number: Effective Repository Date:2018-04-11 03/23/2018 ROBERTO J Primary ROBERTO J Jackie [id number] N Insurance:AETNA KEENERDOB: Community [place] RDWest [facility] Number: [id number] [place], [place] [id number] Repository 3[address]Hlj: (330) Date:3037-57-18Gn [phone] (HP) 763776Pm [place] [address]VQ: 03/23/2018 Secondary NOT GIVENUNK [place] Insurance:SELF PAY Community [facility] Number: Effective Repository Date:2018-02-23 03/07/2018 ROBERTO J Primary ROBERTO J [place] [id number] N Insurance:AETNA [facility] Number: [id number] [place] [id number] Repository [address]Vjg: (330) Date:9740-88-37Bc [phone] () 217166OkBishop[place] [address]FX: 03/07/2018 Secondary NOT GIVENUNK Jackie Insurance:SELF PAY [facility] Number: Effective Repository Date:2018-03-07 02/23/2018 ROBERTO J Primary ROBERTO J [place] [id number] N Insurance:AETNA GLENNKPDOB: [facility] Number: [id number] [place], [place] [id number] Repository 157[address]Qcs: (330) Date:2812-66-05Hl [phone] (HP) 756339VxBishopville, [place] [address]UH: 02/23/2018 Secondary NOT GIVENUNK [place] Insurance:SELF PAY [facility] Number: Effective Repository Date:2018-01-26 01/26/2018 ROBERTO J Primary ROBERTO J Jackie [id number] N Insurance:AETNA GLENNKPDOB: [facility] Number: [id number] [place] [id number] Repository 05[address]App: (330) Date:8892-52-40Sm [phone] (HP) 215572EpBishopville[place] [address]BS: 01/26/2018 Secondary NOT GIVENUNK Jackie Insurance:SELF PAY [facility] Number: Effective Repository Date:2017-12-29 12/29/2017 ROBERTO J Primary RBOERTO J [place] [id number] N Insurance:AETNA MARTYDOB: [facility] Number: [id number] [place] [id number] Repository [address]Ged: (330) Date:5170-26-13Ej [phone] (HP) 017240DyBishopville[place] [address]WC: 12/29/2017 Secondary NOT GIVENUNK [place] Insurance:SELF PAY [facility] Number: Effective Repository Date:2017-12-01 12/01/2017 ROBERTO J Primary ROBERTO Blanquita Mejia [id number] N Insurance:AETNA MARTYDOB: [facility] ELYRIA RDWest [facility] hospital[facility] Number: [id number] Pom[place], [place] [id number] Repository 17[address]Nai: (330) Date:6636-62-23Uy [phone] (HP) [id number] [address]UO: 12/01/2017 Secondary NOT GIVENUNK Jackie Insurance:SELF PAY [facility] Number: Effective Repository Date:2017-11-02 11/02/2017 Roberto J Primary Roberto Blanquita Mejia [id number] N Insurance:AETNA NiurkaB: [facility] ELYRIA RDWest [facility] Number: [id number] [place] [id number] Repository 179[address]Kmo: (330) Date:7114-37-13Wh [phone] (HP) 580799OjBishopville, [place] [address]GH: 11/02/2017 Secondary NOT GIVENUNK [place] Insurance:SELF PAY [facility] Number: Effective Repository Date:2017-10-12 10/29/2017 ROBERTO J Primary ROBERTO J [facility] MARTYDOB: Insurance:AETNA NIURKAB: [facility] [id number] MEDICARE PPOPolicy [id number] Repository N [address] Number: [place] [id number] [address]Tmg: (330) Date: [phone] (HP) 10/06/2017 Roberto J Primary Roberto Blanquita Mejia [id number] N Insurance:AETNA GlennenerDOB: Community [place] RDWest [facility] Number: [id number] [place], [place] [id number] Repository 80[address]Uid: (330) Date:0446-26-07Bj [phone] (HP) 178730Yt [place] [address]QT: 10/06/2017 Secondary NOT GIVENUNK Jackie Insurance:SELF PAY [facility] Hospital Number: Effective Repository Date:2017-09-08 10/06/2017 Roberto J Primary Roberto J [place] [id number] N Insurance:AETNA KeenerDOB: [facility] SUSHILAIA HILLWest [facility]Policy Number: [id number] [place], [place] [id number] Repository 318[address]Vjf: (330) Date:9714-93-72Je [phone] (HP) [id number][place] [address]LN: 10/06/2017 Secondary NOT GIVENUNK Jackie Insurance:SELF PAY [facility] Hospital Number: Effective Repository Date:2017-10-06 09/15/2017 Roberto J Primary Roberto J Jackie [id number] N Insurance:AETNA KeenerDOB: [facility] Shanita HurdWest [facility]Policy Number: [id number] [place], [place] [id number] Repository [address]Fwf: (330) Date:3884-75-38Pd [phone] (HP) [id number][place] [address]KN: 09/15/2017 Secondary NOT GIVENUNK Jackie Insurance:SELF PAY [facility] Hospital Number: Effective Repository Date:2017-09-15 09/08/2017 Roberto J Primary Roberto J Jackie [id number] N Insurance:AETNA GlennenerDOB: [facility] [address] [address] [facility] Number: [id number] [place], [place] [id number] Repository [address]98[address]Zil: (330) Date:2069-41-40Bo [phone] (HP) 048669WsBishopville[place] [address]PW: 09/08/2017 Secondary NOT GIVENUNK Jackie Insurance:SELF PAY [facility] Number: Effective Repository Date:2017-08-11 09/01/2017 Roberto J Primary Roberto J [place] [id number] N Insurance:AETNA KeenerDOB: [facility] Hospital[facility]West [facility] Number: [id number] ak [id number] Repository [address]Apn: (330) Date:9619-11-88Uy [phone] () [id number], [place] [address]CF: 09/01/2017 Secondary NOT GIVENUNK Jackie Insurance:SELF PAY [facility] Number: Effective Repository Date:2017-07-22 08/25/2017 ROBERTO J Primary ROBERTO J [facility] KEENERDOB: Insurance:AETNA KEENERDOB: [facility] MEDICARE [facility] [id number] Repository N [address] Number: [facility] CENTERCHYNA Singleton [id number] [address]Aia: (330) Date: [phone] (HP) 08/11/2017 Roberto J Primary Roberto J [place] [id number] N Insurance:AETNA GlennenerDOB: [facility] [address] [address] Number: [id number] [facility] [place] ak [id number] Repository [address]56[address]Pdk: (330) Date:9183-72-32Cl [phone] (HP) 203311AfBishopville[place] [address]MN: 08/11/2017 Secondary NOT GIVENUNK Jackie Insurance:SELF PAY [facility] Number: Effective Repository Date:2017-07-14 07/21/2017 ROBERTO J Primary ROBERTO J [facility] KEENERDOB: Insurance:AETNA KEENERDOB: [facility] MEDICARE PPOPolicy [id number] Repository N [address] Number: CHYNA ROSS [id number] [address]Ekq: (330) Date: [phone] (HP) 07/19/2017 Roberto J Primary Roberto J [place] [id number] N Insurance:AETNA GlennenerDOB: [facility] Number: [id number] [place], [place] [id number] Repository [address]Pdt: (330) Date:3107-48-75Hv [phone] (HP) 399345Wr NAHUM Springer [address]KB: 07/19/2017 Secondary NOT GIVENUNK Jackie Insurance:SELF PAY [facility] Number: Effective Repository Date:2017-07-19 07/14/2017 Roberto J Primary Roberto J [place] [id number] N Insurance:AETNA GlennenerDOB: [facility] Number: [id number] [place], [place] [id number] Repository [address]Rrn: (330) Date:7091-38-15Hy [phone] (HP) 597041Yv NAHUM Springer [address]VJ: 07/14/2017 Secondary NOT GIVENUNK Jackie Insurance:SELF PAY [facility] Number: Effective Repository Date:2017-06-16 06/30/2017 ROBERTO J Primary ROBERTO J [facility] KEENERDOB: Insurance:AETALBA GENAOB: [facility] System [id number] MEDICARE PPOPolicy [id number] Repository N [facility] Number: [place] [id number] [address]Qtv: (330) Date: [phone] (HP) 06/25/2017 Roberto J Primary Roberto J Jackie [id number] N Insurance:AETNA GlennenerDOB: [facility] Number: [id number] [place] [id number] Repository 56[address]Tdt: (330) Date:8111-06-68Fw [phone] (HP) 725[address]No NAHUM Springer [address]FK: 06/25/2017 Secondary NOT GIVENUNK [place] Insurance:SELF PAY [facility] Number: Effective Repository Date:2017-06-25 06/25/2017 Roberto J Primary Roberto Blanquita Jackie [id number] N Insurance:AETNA GlennenerDOB: [facility] Number: [id number] [place], [place] [id number] Repository [address]Xaa: (330) Date:7739-42-96Bp [phone] (HP) [phone] [place] [address]JH: 06/25/2017 Secondary NOT GIVENUNK [place] Insurance:SELF PAY [facility] Number: Effective Repository Date:2017-04-06 06/16/2017 Roberto J Primary Roberto Blanquita Mejia [id number] N Insurance:AETNA MartyDOB: [facility] Number: [id number] [place], [place] [id number] Repository [address]Ojk: (330) Date:9957-69-82Yh [phone] (HP) 152412Pp [place] [address]WO: 06/16/2017 Secondary NOT GIVENUNK Jackie Insurance:SELF PAY [facility] Number: Effective Repository Date:2017-05-19 06/02/2017 ROBERTO Juares Primary ROBERTO J Nael GENAOB: Insurance:AETALBA GENAOB: [facility] [id number] MEDICARE PPOPolicy [id number] Repository N [address] Number: [place] [id number] [address]Kjz: (330) Date: [phone] (HP)
== END ==
PROVIDERS: Family Provider Family Medicine; PCP Family Medicine; Referring Provider Internal Medicine Rheumatology; Visit Provider Internal Medicine Rheumatology
DX: M06.9 Rheumatoid arthritis, unspecified (principal)
CPT/HCPCS: 96413; J7050; A4216; J0129

== ENCOUNTER → 2018-05-30 10:24 | Outpatient (CLI) | payer MEDICARE, SELFPAY ==
[2018-05-18 10:55] VITALS: BMI 23.4
[2018-05-30 12:04] LABS: Absolute Lymphocyte Count 1.14 X10^3/ul (0.83-4.51); Absolute Neutrophil Count 1.8 X10^3/uL (2.0-7.7); Basophil# 0.02 X10^3/uL; Basophil% 0.6 % (0-1); Eosinophil# 0.15 X10^3/uL; Eosinophils% 4.2 % (0-5); Hematocrit 39.9 % (37-47); Hemoglobin 13.3 g/dl (12.0-15.0); Lymphocyte # 1.14 X10^3/ul (4.0); Lymphocyte % 31.6 % (19-41); Mean Corp Hgb Conc 33.3 g/gl (32-36); Mean Corpuscular Hgb 31.6 pg (27.0-32.0); Mean Corpuscular Volume 94.8 fL (81-99); Mean Platelet Vol. 11.2 fl (6.2-12.0); Monocyte# 0.47 X10^3/uL; Neutrophil # 1.83 X10^3/uL (2.7-7.7); Neutrophil % 50.6 % (47-70); Platelet Count 169 K/mm3 (150-450); RBC Distribution Width CV 13.5 % (11.6-14.6); RBC Distribution Width SD 44.5 fl (35.1-43.9); Red Blood Count 4.21 M/mm3 (4.2-5.4); White Blood Count 3.6 K/mm3 (4.4-11.0)
[2018-05-30 12:06] LABS: POSITIVE COUNT NO; POSITIVE DIFFERENTIAL NO; POSITIVE MORPHOLOGY NO
[2018-05-30 12:30] LABS: ALB/GLOB Ratio 1.3 RATIO (0.9-2.4); AST(SGOT) 21 U/L (15-37); Alanine Aminotransfer ALT/SGPT 22 U/L (13-56); Albumin, Serum 3.9 g/dL (3.2-5.0); Alkaline Phosphatase 57 U/L (45-117); Anion Gap 9 (5-15); BUN 18 mg/dL (7-18); BUN/Creat Ratio 19.9 RATIO (10-20); Calcium,Total 8.7 mg/dL (8.5-10.1); Chloride 108 mmol/L (98-107); EST Glomerular Filtration Rate 63 mL/min (>60); Est Glom Filt Rate - Afr Amer 77 mL/min (>60); Globulin 2.9 g/dL (2.2-4.2); Glucose 94 mg/dL (74-106); Potassium 4.3 mmol/L (3.5-5.1); Protein, Total 6.8 g/dL (6.4-8.2); Sodium Level 143 mmol/L (136-145)
== END ==
PROVIDERS: Family Provider Family Medicine; PCP Family Medicine; Referring Provider Internal Medicine Rheumatology; Visit Provider Internal Medicine Rheumatology
DX: M05.70 Rheumatoid arthritis with rheumatoid factor of unspecified site without organ or systems involvement (principal); M50.30 Other cervical disc degeneration, unspecified cervical region; Z85.3 Personal history of malignant neoplasm of breast; Z79.899 Other long term (current) drug therapy
CPT/HCPCS: 36415; 80053; 85025

== ENCOUNTER → 2018-06-15 10:40 | Outpatient (CLI) | payer MEDICARE, SELFPAY ==
[2018-05-18 10:55] VITALS: BMI 23.4
[2018-06-15 10:48] VITALS: BP 141/61; PULSE 72; RESP 16; TEMP 36.8; BMI 23.9
== END ==
PROVIDERS: Family Provider Family Medicine; PCP Family Medicine; Referring Provider Internal Medicine Rheumatology; Visit Provider Internal Medicine Rheumatology
DX: M06.9 Rheumatoid arthritis, unspecified (principal)
CPT/HCPCS: 96413; J7050; A4216; J0129

== ENCOUNTER 2018-06-28 09:33 | Outpatient (CLI) | payer MEDICARE, SELFPAY ==
[2018-04-11 13:37] VITALS: BMI 24.0
[2018-06-15 10:48] VITALS: BMI 23.9
--- NOTE | 2018-06-28 09:36 | BI_ITS ---
MAMMOGRAPHY - UNILATERAL SCREENING: LEFT BREAST REASON FOR EXAM: Female, 82 years old. Routine annual screening examination (unilateral). PERTINENT HISTORY: Personal history of breast cancer. Prior right mastectomy with radiation and chemotherapy. History of prior left stereotactic breast biopsy. TECHNIQUE: Digital unilateral breast giovanny (3D mammographic acquisition) in the CC and MLO projections. 2-D mediolateral oblique (MLO) and craniocaudad (CC) views of both breasts were obtained. CAD: Full Field Digital Mammography with Computer Added Detection was performed. COMPARISON: Comparison is made with prior examination dated June 25, 2017 and June 23, 2016. FINDINGS: Breast Composition: There are scattered areas of fibroglandular density. There are no dominant masses or suspicious calcifications. A port is seen overlying the medial axillary region of the breast. Stable secretory calcifications. No other significant abnormalities are identified. There has been no significant change since the prior study. BI/SCREEN MAMM (CAD) W/GIOVANNY UNI L IMPRESSION: Stable unilateral screening mammogram. Yearly follow-up mammogram recommended. (A) ASSESSMENT CATEGORY: BIRADS Category 2: Benign. A letter regarding these results will be sent to the patient by the facility within 30 days. Approximately 10% of breast cancers are not detected by mammography. A normal mammogram should not delay biopsy of a clinically suspicious abnormality. [id number] Electronically Signed: Aneudy Cardenas, at 10:26 EST , Service support ,
--- NOTE | 2018-06-28 09:39 | BD_ITS ---
STUDY: DUAL ENERGY X-RAY ABSORPTIOMETRY / DXA REASON FOR EXAM: Female, 82 years old. The patient is postmenopausal. Loss of height. TECHNIQUE: Bone Mineral Density (BMD) measurements of lumbar spine and bilateral hips were obtained. COMPARISON: Comparison is made with prior study dated June 23, 2016. FINDINGS: Lumbar Spine (L1-L4): g/cm2 (1.342) / T-score (1.5) / Z-score (3.3) Findings are suggestive of normal bone density with a low fracture risk. Almost complete collapse of the T12 vertebrae. Left Femur Total: g/cm2 (0.963) / T-score (-0.4) / Z-score (1.7) Left Femoral Neck: g/cm2 (0.941) / T-score (-0.7) / Z-score (1.5) Right Femur Total: g/cm2 (0.849) / T-score (-1.3) / Z-score (0.8) Right Femoral Neck: g/cm2 (0.860) / T-score (-1.3) / Z-score (0.9) The T-Scores on the most recent prior examination were: Lumbar Spine (L1-L4): There has been worsening of bone density since the previous examination. Left Femur Total: which represents an improvement of 3.9%. Right Femur Total: which represents an improvement of 1.6%. BD/DXA BONE DENS W/VERT FX ASMT IMPRESSION: The patient is considered osteopenic as outlined below according to World [employer] Organization (WHO) criteria with a low fracture risk. There has been improvement of bone density since the previous examination. Reference Information: The T-score is the number of standard deviations above or below the standard which is normal for young adults at their peak bone mineral density. The World Health Organization (WHO) interprets the T-scores as follows: Above -1 Normal bone density Between -1 and -2.5 Osteopenia Equal to / or below -2.5 Osteoporosis As a practical clinical guideline, osteopenia may be graded as follows: Mild -1 through -1.5 Moderate -1.6 through -2.0 Severe -2.1 through -2.4 The Z-score is the number of standard deviations above or below age-matched controls. A Z-score of less than -1.5 would be considered abnormal. References: 1. NIH Osteoporosis and Related Bone Diseases http://www.osteo.org 2. International Society for Clinical Densitometry http://www.iscd.org 3. National Osteoporosis Foundation http://www.nof.org Electronically Signed: Aneudy Cardenas, at 10:18 EST , Service support ,
== END 2018-06-28 19:00 | disposition home or self-care (01) ==
LOC: OPBD 09:34
PROVIDERS: Family Provider Family Medicine; PCP Family Medicine; Referring Provider Internal Medicine Medical Oncology; Visit Provider Internal Medicine Medical Oncology
DX: M85.80 Other specified disorders of bone density and structure, unspecified site (principal); M81.0 Age-related osteoporosis without current pathological fracture; Z12.31 Encounter for screening mammogram for malignant neoplasm of breast; Z85.3 Personal history of malignant neoplasm of breast
CPT/HCPCS: 77061; 77063; 77067; 77085; G0279

== ENCOUNTER → 2018-07-13 10:46 | Outpatient (CLI) | payer MEDICARE, SELFPAY ==
[2018-06-15 10:48] VITALS: BMI 23.9
[2018-07-13 11:12] VITALS: BP 149/52; PULSE 81; RESP 16; TEMP 37.1; O2SAT 97
[2018-07-13 11:24] VITALS: BP 149/52; PULSE 81; RESP 18; TEMP 37.1; O2SAT 97
== END ==
PROVIDERS: Family Provider Family Medicine; PCP Family Medicine; Referring Provider Internal Medicine Rheumatology; Visit Provider Internal Medicine Rheumatology
DX: M06.9 Rheumatoid arthritis, unspecified (principal)
CPT/HCPCS: 96413; J7050; A4216; J0129

== ENCOUNTER 2018-08-04 17:28 | Emergency (ER) | payer MEDICARE, SELFPAY ==
[2018-06-15 10:48] VITALS: BMI 23.9
[2018-08-04 17:29] VITALS: BP 165/77; PULSE 92; RESP 17; TEMP 36.7; O2SAT 98; BMI 25.3
--- NOTE | 2018-08-04 18:01 | RAD_ITS ---
STUDY: X-RAY - LEFT ANKLE REASON FOR EXAM: Female, 82 years old. Pain with swelling and redness. History of ankle surgery. TECHNIQUE: 3 view(s) of the ankle. COMPARISON: 3 presurgical views of the left ankle April 17, 2017. FINDINGS: There is healed prior ORIF of the medial malleolar fracture with 2 metal screws passing in an upward oblique fashion through the medial malleolus into the posterior distal tibial metadiaphysis. There is also prior ORIF of the distal fibular fracture bilateral metal sideplate and numerous screws. One of the screws passes through the fibula into the distal tibial diaphysis. Fracture fragments are in gross anatomic alignment, but there is residual defect in the distal fibular diaphysis at the original fracture site. No sign of hardware fracture or loosening. Normal tibiotalar articulation and ankle mortise. Normal visualized talus and calcaneus. The visualized subtalar, talonavicular, calcaneocuboid and tarsal articulations are normal. There is no demonstrated osseous destructive lesion or acute fracture. There is borderline to mild lateral soft tissue swelling. RAD/Ankle min 3 Views IMPRESSION: Healed prior ORIF of left medial malleolar and distal fibular fractures with metal hardware, as described. There is borderline to mild lateral soft tissue swelling, but no demonstrated acute osseous abnormality. Electronically Signed: Osvaldo Rebolledo MD at 18:58 EDT , Service support ,
--- NOTE | 2018-08-04 19:43 | ED.VISSUMM ---
- ER Visit Summary Date of Service: 08/04/18 Chief Complaint: Atraumatic left ankle pain History of Present Illness: The patient is a 82 F history of prior left ankle fracture with ORIF fracture repair surgery done in [facility] secondary to being to trauma. Also history of rheumatoid arthritis. Patient's been doing well. She says the last 2 days she is atraumatic left lateral ankle pain and swelling. Denies any fall or trauma. No fever. No calf pain or swelling. No history of DVT or PE. No recent travel, surgery or immobilization. No chest pain. Physical Examination: Vital signs stable afebrile. Older female no distress. H EENT exam unremarkable. Neck nontender. Lungs clear to auscultation. Heart regular rhythm. Chest nontender. Abdomen soft nontender. Remedies moves all 4. Significant rheumatoid arthritic changes in her hands and feet. Left lateral malleolus of the ankle is mildly swollen. Mildly tender. No deformity. Dorsi plantar flexion intact. Achilles tendon intact. Left foot neurovascular intact. No bony deformity. No signs of infection. Left calf nontender without edema or cords. Neurologically she is awake alert with no focal motor deficits. Test Results: X-ray left ankle shows healed fractures with plates and screws. No acute change. Mild soft tissue swelling. Read both by myself and the radiologist. Emergency Department Course and Treatment: Repeat exam no change. Ice and elevate. Follow-up with your lead material handler if not improving. Treatment Plan: Ice and elevate. Tylenol for pain. Disposition: Discharge Impression: Atraumatic left lateral malleolus pain and swelling History of prior fracture with orthopedic repair History of rheumatoid arthritis This note was generated with Social Touch dictation software. It may contain incorrect words, spelling, and punctuation that were not noted in review of the chart prior to signing ED Disposition - Plan for ED Patient: Referrals: Teagan Hall MD [Primary Care Provider] -
--- NOTE | 2018-08-04 19:46 | ED.DCSUM_ITS ---
- ER Visit Summary Date of Service: 08/04/18 Chief Complaint: Atraumatic left ankle pain History of Present Illness: The patient is a 82 F history of prior left ankle fracture with ORIF fracture repair surgery done in [facility] secondary to being to trauma. Also history of rheumatoid arthritis. Patient's been doing well. She says the last 2 days she is atraumatic left lateral ankle pain and swelling. Denies any fall or trauma. No fever. No calf pain or swelling. No history of DVT or PE. No recent travel, surgery or immobilization. No chest pain. Physical Examination: Vital signs stable afebrile. Older female no distress. H EENT exam unremarkable. Neck nontender. Lungs clear to auscultation. Heart regular rhythm. Chest nontender. Abdomen soft nontender. Remedies moves all 4. Significant rheumatoid arthritic changes in her hands and feet. Left lateral malleolus of the ankle is mildly swollen. Mildly tender. No deformity. Dorsi plantar flexion intact. Achilles tendon intact. Left foot neurovascular intact. No bony deformity. No signs of infection. Left calf nontender without edema or cords. Neurologically she is awake alert with no focal motor deficits. Test Results: X-ray left ankle shows healed fractures with plates and screws. No acute change. Mild soft tissue swelling. Read both by myself and the radiologist. Emergency Department Course and Treatment: Repeat exam no change. Ice and elevate. Follow-up with your brand marketing intern if not improving. Treatment Plan: Ice and elevate. Tylenol for pain. Disposition: Discharge Impression: Atraumatic left lateral malleolus pain and swelling History of prior fracture with orthopedic repair History of rheumatoid arthritis This note was generated with Hot[employer]k dictation software. It may contain incorrect words, spelling, and punctuation that were not noted in review of the chart prior to signing ED Disposition - Plan for ED Patient: Referrals: Teagan Hall MD [Primary Care Provider] -
--- NOTE | 2018-08-04 19:46 | ED.DEP ---
ED Disposition - Plan for ED Patient: Disposition: Home or Assisted Living Referrals: Teagan Hall MD [Primary Care Provider] - As Needed Keyur Rios DPM [STAFF PHYSICIAN] - 1 Week if not improving Additional Instructions: Ice and elevate left ankle. Tylenol for pain. Follow-up with your safety advisor or your orthopedic surgeon if not improving.
== END 2018-08-04 19:55 | disposition home or self-care (01) ==
PROVIDERS: Emergency Provider Emergency Medicine; Family Provider Family Medicine; PCP Family Medicine
DX: M25.572 Pain in left ankle and joints of left foot (principal); M25.472 Effusion, left ankle; S82.52XD Displaced fracture of medial malleolus of left tibia, subsequent encounter for closed fracture with routine healing; X58.XXXD Exposure to other specified factors, subsequent encounter; M06.9 Rheumatoid arthritis, unspecified
CPT/HCPCS: 73610; 99282

== ENCOUNTER → 2018-08-10 10:55 | Outpatient (CLI) | payer MEDICARE, SELFPAY ==
[2018-06-15 10:48] VITALS: BMI 23.9
[2018-08-04 17:29] VITALS: BMI 25.3
[2018-08-10 11:03] VITALS: BP 148/67; PULSE 86; RESP 16; TEMP 36.8; O2SAT 98; BMI 24.2
== END ==
PROVIDERS: Family Provider Family Medicine; PCP Family Medicine; Referring Provider Internal Medicine Rheumatology; Visit Provider Internal Medicine Rheumatology
DX: M06.9 Rheumatoid arthritis, unspecified (principal)
CPT/HCPCS: 96413; J7050; J0129

== ENCOUNTER → 2018-08-18 17:37 | Outpatient (CLI) | payer MEDICARE, SELFPAY ==
[2018-08-10 11:03] VITALS: BMI 24.2
== END ==
PROVIDERS: Family Provider Family Medicine; PCP Family Medicine; Referring Provider Podiatrist; Visit Provider Podiatrist
DX: L03.116 Cellulitis of left lower limb (principal)
CPT/HCPCS: 87070; 87075; 87205

== ENCOUNTER → 2018-09-02 10:41 | Outpatient (CLI) | payer MEDICARE, SELFPAY ==
[2018-08-10 11:03] VITALS: BMI 24.2
[2018-09-02 12:51] LABS: Absolute Lymphocyte Count 1.16 X10^3/ul (0.83-4.51); Absolute Neutrophil Count 2.8 X10^3/uL (2.0-7.7); Basophil# 0.01 X10^3/uL; Basophil% 0.2 % (0-1); Eosinophil# 0.06 X10^3/uL; Eosinophils% 1.3 % (0-5); Hematocrit 38.1 % (37-47); Hemoglobin 12.7 g/dl (12.0-15.0); Lymphocyte # 1.16 X10^3/ul (4.0); Lymphocyte % 25.3 % (19-41); Mean Corp Hgb Conc 33.3 g/gl (32-36); Mean Corpuscular Hgb 31.1 pg (27.0-32.0); Mean Corpuscular Volume 93.2 fL (81-99); Mean Platelet Vol. 11.3 fl (6.2-12.0); Monocyte# 0.61 X10^3/uL; Monocyte% 13.3 % (0-10); Neutrophil # 2.75 X10^3/uL (2.7-7.7); Neutrophil % 59.9 % (47-70); Platelet Count 171 K/mm3 (150-450); RBC Distribution Width CV 13.8 % (11.6-14.6); RBC Distribution Width SD 46.9 fl (35.1-43.9); Red Blood Count 4.09 M/mm3 (4.2-5.4); White Blood Count 4.6 K/mm3 (4.4-11.0)
[2018-09-02 13:12] LABS: POSITIVE COUNT NO; POSITIVE DIFFERENTIAL NO; POSITIVE MORPHOLOGY NO
[2018-09-02 13:13] LABS: ALB/GLOB Ratio 1.5 RATIO (0.9-2.4); AST(SGOT) 21 U/L (15-37); Alanine Aminotransfer ALT/SGPT 19 U/L (13-56); Albumin, Serum 3.9 g/dL (3.2-5.0); Alkaline Phosphatase 58 U/L (45-117); Anion Gap 3 (5-15); BUN 22 mg/dL (7-18); BUN/Creat Ratio 26.7 RATIO (10-20); Calcium,Total 9.1 mg/dL (8.5-10.1); Chloride 107 mmol/L (98-107); Creatinine, Serum 0.82 mg/dL (0.55-1.02); EST Glomerular Filtration Rate 71 mL/min (>60); Est Glom Filt Rate - Afr Amer 86 mL/min (>60); Globulin 2.6 g/dL (2.2-4.2); Glucose 94 mg/dL (74-106); Potassium 4.5 mmol/L (3.5-5.1); Protein, Total 6.5 g/dL (6.4-8.2); Sodium Level 139 mmol/L (136-145)
== END ==
PROVIDERS: Family Provider Family Medicine; PCP Family Medicine; Referring Provider Internal Medicine Rheumatology; Visit Provider Internal Medicine Rheumatology
DX: M05.70 Rheumatoid arthritis with rheumatoid factor of unspecified site without organ or systems involvement (principal); M50.30 Other cervical disc degeneration, unspecified cervical region; Z85.3 Personal history of malignant neoplasm of breast; Z79.899 Other long term (current) drug therapy
CPT/HCPCS: 36415; 80053; 85025

== ENCOUNTER → 2018-09-02 13:09 | Outpatient (CLI) | payer MEDICARE, SELFPAY ==
[2018-08-10 11:03] VITALS: BMI 24.2
--- NOTE | 2018-09-02 13:17 | CT_ITS ---
CT of the left ankle INDICATION: Nonunion of distal left fibula TECHNIQUE: CT of the left ankle was performed in the axial projection without contrast followed by sagittal and coronal reconstructions. Radiographic technique was optimized to limit patient radiation dose. DLP was 358.82 FINDINGS: There are postsurgical changes status post open reduction internal fixation of medial malleolus fracture with 2 screws threaded screws traversing the medial malleolus into the distal posterior tibial shaft. Fracture fragments are in anatomic alignment and position and there is callus deposition seen consistent with healing. There is also a screw traversing the fibula into the distal tibial diaphysis. There are also postsurgical changes involving distal fibular fracture with cortical plate and multiple screw device. Fracture fragments are in anatomic alignment and position however, there is incomplete fusion of the fracture fragments demonstrating sclerotic margin consistent with nonunion. CT/Extremity Lower without Contra IMPRESSION: Healed fracture of the distal tibia status post ORIF. 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 No evidence for acute osteomyelitis however chronic infection not excluded. Clinical correlation recommended Electronically Signed: Keyur Farrell MD at 21:35 EDT , Service support ,
== END ==
PROVIDERS: Family Provider Family Medicine; PCP Family Medicine; Referring Provider Podiatrist; Visit Provider Podiatrist
DX: S82.402K Unspecified fracture of shaft of left fibula, subsequent encounter for closed fracture with nonunion (principal); M05.70 Rheumatoid arthritis with rheumatoid factor of unspecified site without organ or systems involvement; M50.30 Other cervical disc degeneration, unspecified cervical region; Z85.3 Personal history of malignant neoplasm of breast; Z79.899 Other long term (current) drug therapy
CPT/HCPCS: 36415; 73700; 80053; 85025

== ENCOUNTER → 2018-09-09 12:18 | Outpatient (CLI) | payer MEDICARE, SELFPAY ==
[2018-08-10 11:03] VITALS: BMI 24.2
[2018-09-09 12:23] VITALS: BP 153/77; PULSE 77; RESP 18; TEMP 36.3; BMI 24.5
== END ==
PROVIDERS: Family Provider Family Medicine; PCP Family Medicine; Referring Provider Internal Medicine Rheumatology; Visit Provider Internal Medicine Rheumatology
DX: M06.9 Rheumatoid arthritis, unspecified (principal)
CPT/HCPCS: 96413; J7050; A4216; J0129

== ENCOUNTER → 2018-10-10 10:50 | Outpatient (CLI) | payer MEDICARE, SELFPAY ==
[2018-09-09 12:23] VITALS: BMI 24.5
[2018-10-10 11:11] VITALS: BMI 24.3
== END ==
PROVIDERS: Family Provider Family Medicine; PCP Family Medicine; Referring Provider Internal Medicine Rheumatology; Visit Provider Internal Medicine Rheumatology
DX: M06.9 Rheumatoid arthritis, unspecified (principal)
CPT/HCPCS: 96413; J7050; A4216; J0129

== ENCOUNTER 2018-10-28 12:01 | Day surgery (SDC) | payer MEDICARE, SELFPAY ==
[2018-10-17 13:21] VITALS: BMI 24.3
[2018-10-28] VITALS (7 sets, daily range): BP systolic 125–133; BP diastolic 50–64; PULSE 74–88; RESP 16–20; TEMP 36.2–36.9; O2SAT 96–98; BMI 23.3
--- NOTE | 2018-10-28 | BON_PTH ---
PATIENT: ROBERTO RASMUSSEN [place] [facility] [place][id number] AGE/SX: 83/F ROOM: RE10/28/[address]: Dr. Keyur Rios DPM : [id number] BED: DIS: 10/28/2018 SPEC #: [id number] RECD: 10/31/18 08:47 STATUS: SHAY REMel #: [id number] ERNESTO: 10/28/18 00:[address]: Keyur Rios DEPT: SURGICAL PATHOLOGY RECD BY: Fernando Brady ENTERED: 10/31/18 11:03 SP TYPE: Bone OTHR DR: Dr. Teagan Hall MD Tissues: Bone of ankle, NOS Procedures: Decalcification bone/plaque Surgery Specimen Level IV HEADER OPERATION: Incision and drainage, debridement soft tissue and bone, ankle PRE-OP DIAGNOSIS: Nonunion fibula with infection TISSUE SUBMITTED: Left fibula bone MICROSCOPIC DIAGNOSIS Left fibula bone, biopsy: Granulation with associated mild chronic inflammation and benign histiocytic reaction. Fibrinoid material with acute inflammation, mild. AM:mercedes 11/04/18 MICROSCOPIC DESCRIPTION Slides are reviewed. GROSS DESCRIPTION Received in fixative is one container labeled with the patient's name and designated left fibula bone. The specimen consists of multiple pieces of bone that in aggregate measure 1.8 x 0.5 x 0.3 cm. The entire specimen is submitted in one cassette after decalcification. / SAMIRA:mercedes 10/31/18 TC:2 CPT: 40783, 10540
--- NOTE | 2018-10-28 12:07 | EKG12_ITS ---
Test Reason : PRE OP Blood Pressure : / mmHG Vent. Rate : 081 BPM Atrial Rate : 081 BPM P-R Int : 186 ms QRS Dur : 086 ms QT Int : 380 ms P-R-T Axes : 066 -18 076 degrees QTc Int : 441 ms Normal sinus rhythm Nonspecific T wave abnormality Abnormal ECG Confirmed by JO LOPES, JIMENEZ ([id number]), telegraph editor HOPE CASANOVA ([id number]) on 11/02/2018 1:00:28 PM Referred By: Keyur Rios Confirmed By:JIMENEZ OSORIO MD
--- NOTE | 2018-10-28 13:30 | RAD_ITS ---
STUDY: X-RAY - LEFT ANKLE REASON FOR EXAM: Female, 83 years old. Fluoroscopic guided hardware removal and eileen replacement TECHNIQUE: 7 fluoroscopic guided view(s) of the ankle. COMPARISON: None. FINDINGS: 7 fluoroscopic guided films were obtained in the AP and lateral projections during hardware removal and eileen placement as per clinical history. For more complete information recommend correlation with surgical notes RAD/Ankle min 3 Views IMPRESSION: Fluoroscopic guided hardware removal and replacement of the left ankle Electronically Signed: Keyur Farrell MD at 16:46 EDT , Service support ,
[2018-10-28] MEDS: Heparin 10,000 UNITS/10 ML Vial 10000 UNITS (15:40)
[2018-10-28] MEDS: Bupivacaine Mpf 0.5% 30 ML VIAL (16:10)
[2018-10-28] MEDS: Cefazolin 2 GM in 0.9% Normal Saline 100 ML IV (16:12)
--- NOTE | 2018-10-28 16:28 | DCINST_ITS ---
Discharge Diet: Light diet - advance as tolerated Discharge Activity: May Not Drive Weight Bearing Status: No weight bearing - No weightbearing left foot/ankle Keep extremity elevated above heart level: Left Leg - Keep left foot/ankle elevated for at least 50 minutes of every hour Call your doctor if your incision/area has: Continuous Slow Oozing, Sudden Increased Bleeding, Foul Smelling Discharge Call your doctor if you observe: Fever of 101 or Higher, Coldness, Increased Pain, Shortness of breath, Chest pain, Increased palpitations (irregular heartbeat), Calf discomfort, Uncontrolled pain Cleanse incision/area with: Do not get Incision Wet, Keep Dressing Clean & Dry Allergies/Adverse Reactions: Allergies No Known Allergies Allergy (Verified 10/26/18 10:05) Medications to take at Discharge Folic Acid 1 mg PO BIDCM 02/07/13 Multivitamin [Daily Multiple Vitamin] 1 each PO DAILY #0 02/07/13 Naproxen Sodium [Aleve] 440 mg PO DAILY 02/07/13 leucovorin tablet 5 mg PO QWEEK 04/02/16 Pantoprazole Sodium [Protonix] 40 mg PO DAILY 04/17/17 Calcium Carbonate [Tums] 1,000 mg PO DAILY@0800 10/26/18 Hydrocodone/Acetaminophen [Vicodin 5-300 mg Tablet] 1 - 2 tab PO Q6H PRN PRN 3 Days #24 tab 10/28/18 The following prescriptions were given: Hydrocodone/Acetaminophen [Vicodin 5-300 mg Tablet] 1 - 2 tab PO Q6H PRN PRN 3 Days #24 tab PRN Reason: Pain Prescription Printed Primary Care Physician: Teagan Hall MD [Primary Care Provider] - Test Results: Test results from this visit will be discussed in further detail at your follow- up appointment, if applicable. Please Follow Up With: Keyur Rios, DPM - [address] [facility], [address]; [phone] When: Wednesday10/31/18 at 1PM @ [facility]
--- NOTE | 2018-10-28 16:32 | OP.PCM_ITS ---
Report of Operation Date of Procedure: 10/28/18 Pre-Operative Diagnosis: Symptomatic and infected hardware left ankle; nonunion fibular fracture, left Post-Operative Diagnosis: Same Surgery/Procedure Performed:: Incision, drainage, and debridement of all infected and nonviable soft tissue and bone from left ankle with hardware removal, placement of IM eileen to fibula. Debridement of fibular nonunion / bone at nonunion site with bone biopsy and placement of bone graft, left ankle community relations advisor: yes - Dr. Ajith De Dios community relations advisor: yes - Dr. Chanel Soriano Type of Anesthesia:: General, Local Specimen's removed: 1. Bone from left fibula sent to pathology and microbiology. 2. Deep culture from fibula/lateral ankle sent to microbiology Estimated Blood Loss (mL): 5mL Description of Procedure: Indications: This is a 83 year old female with history of trimalleolus left ankle fracture s/p open reduction internal fixation by Dr. Hernandez in [place]. Patient subsequently developed painful hardware, nonunion and fibular fracture site with possible underlying infection. She has elected to proceed forward with removal of the painful retained hardware, incision and drainage with debridement, fibular IM eileen placement, and placement of grafting, also bone marrow aspiration and placement of concentrated bone marrow aspirate at the nonunion site. This was discussed with her in great detail, the procedure was reviewed with her as well as all of the possible benefits, risks, goals, expectations, typical/estimated healing time. She expressed understanding and agreement. The consent forms were reviewed with her and she freely signed them. All of her questions were answered. No guarantees were given nor implied. Joshua menchaca has received medial clearance, and recommendations from rheumatology have been obtained - patient will remain off of her methotrexate and Orencia until complete wound healing. Operative Procedure: The patient was brought back to the operating room and was placed on the operating room table in the supine position. She was carefully secured to the operating room table with a safety belt around her waist. A time out was performed and the patient was properly identified and the surgical plan was confirmed. A well padded pneumatic tourniquet was applied around the left thigh. The patient did receive general anesthesia per the anesthesiologist. The left foot/ankle/leg were scrubbed, prepped, draped in the usual aseptic fashion. A timeout was performed and the patient was properly identified and the surgical plan was confirmed. A Jamshedi needle was placed to the safe zone of the lateral wall of the calcaneus into the body of the calcaneus. 60mL of bone marrow aspirate was obtained, and was concentrated using the Maximo system down to 2 mL of concentrated bone marrow aspirate. The needle site was flushed with copious amounts of normal saline solution and 3-0 nylon suture was placed to reapproximate the skin. The left foot was elevated for 3 minutes and the left thigh pneumatic tourniquet was inflated to 350mmHg. Attention was directed to the left ankle. The distal fibular plate and screws were prominent. A linear longitudinal skin incision was made overlying the lateral distal fibula overlying the plate. Careful dissection was completed down through the subcutaneous tissue layer down the fibular plate. The screws were bulging.The plate and screws were identified and were removed, in toto. There was nonviable tissue present on the bone at the level of the plate, also the nonunion was identified and was not healed. There was nonviable bone and fibrotic tissue present at the nonunion site. This nonviable, unhealthy tissue was debrided using a bone cutting rongeur down to healthy viable bone. The debrided bone tissue was sent to pathology and microbiology for further evaluation. Also a deep culture was obtained using a swab of the site and sent to microbiology for further evaluation. There was no viable abscess noted to the site nor any javier purulence. The tissue planes were intact. The bone was noted to be overall softer than normal consistent with her age and history of chronic rheumatoid arthritis on chronic meds. The site was flushed out with copious amounts of normal saline solution. At this time the tissues were noted to be healthy and viable. The fibula was overall unstable due to the nonunion fracture, and further stability was indicated. The bone edges were reduced and fixated using 1 Arthrex Fibulock intramedullary eileen, which was placed starting at the level of the distal fibula, going across debrided nonunion site extending to the shaft of the fibula. The talions were engaged. 3 distal Fibulock screws were placed into the lateral malleolus and through the eileen to provide for further stability. The was noted to be some residual instability of the distal tib fib syndesmosis, so one Arthrex tightrope was placed across the distal tib fib syndemosis through the eileen with appropriate reduction and tension across the distal tib fib syndesmosis. Also, a small skin incision was made to the medial ankle at the level of the medial malleolus screws. Dissection was completed down to the medial malleolus screw heads and the screws were removed with the appropriate screwdriver, this was completed without complication. The screw holes from the removed screw sites were filled with Augment graft. The nonunion site was packed with cancellous bone chips along with Ignite graft mixed with the concentrated bone marrow aspirate. The medial incision site was flushed out with copious amounts of normal saline solution. The tissues all appeared healthy and viable at this time, the bone was hard, white, and healthy in appearance. Soft tissue was viable. The subcutaneous tissue layer was reapproximated using 2-0 and 3-0 vicryl at the incision sites. The skin was reapproximated using 3-0 Nylon. The ankle was put through range of motion and there was noted to be good, smooth range of motion with no popping, clicking or crepitus present. The distal tib fib syndesmosis was stressed and was stable with no instability present at this time. There was no gapping at the medial gutter, and there was normal tib fib overlap. There was no instability to the ankle, negative anterior drawer, and normal talar tilt at this time. Intraoperative flouroscopy was used as needed to guide the above procedure and to confirm this as well as complete resection of all hardware, and placement of fibular eileen in good position. All vital structure, including all vital neurovascular structures were properly identified and protected as necessary throughout the procedure. The pneumatic tourniquet was deflated (total time was 120 minutes), there was immediate return of vascular flow to the foot, ankle and all toes. 2 grams of Cefazolin IV was given for antibiotic prophylaxis (did not want to give prior to culture). CFT < 2 seconds to all toes, and had normal temperature gradient present. 20mL of 0.5% Bupivacaine plain was given as a local nerve block around the surgical site for post operative pain control. A dressing was applied which consisted of Betadine soaked adaptic, 4x4 gauze, kerlix and suzette dressing, and a well padded posterior splint with heel offloaded. The patient tolerated the above operative procedure well at the anesthesia well with no complications. The patient was transported to the recovery room with vital signs stable and in good condition. Post operative orders were placed. Post operative instructions were reviewed with patient and her daughter (who was with patient today). No weightbearing to the left foot, keep left foot elevated, keep dressing clean, dry and intact. Prescription for Tylenol #3 was prescribed: 1-2 tabs PO q 6 hours PRN pain for pain control (relates she had Vicodin before and caused nausea and vomiting). Patient to follow up with me on Wednesday, sooner if needed. We will await culture results before any further antibiotics will be given. This was discussed with patient pre op and she agreed with this plan, as she relates last course of antibiotics did cause her some diarrhea. Grafts/Implants Used: Arthrex Fibulock eileen, Tight rope, Ignite and Augment graft - Complications None
--- NOTE | 2018-10-28 17:00 | RAD_ITS ---
STUDY: X-RAY - LEFT ANKLE REASON FOR EXAM: Female, 83 years old. Postop TECHNIQUE: 3 view(s) of the ankle. COMPARISON: August 04, 2018 FINDINGS: Postop changes status post open reduction internal fixation of distal tibial and fibular fractures with indwelling orthopedic hardware. Fracture fragments are in near anatomic alignment and position RAD/Ankle min 3 Views IMPRESSION: Status post ORIF distal tibial and fibular fractures Electronically Signed: Keyur Farrell MD at 17:41 EDT , Service support ,
== END 2018-10-28 18:25 | disposition home or self-care (01) ==
LOC: SDC 12:01 → AC 12:02
PROVIDERS: Family Provider Family Medicine; PCP Family Medicine; Referring Provider Podiatrist; Visit Provider Podiatrist
PROC: (CPT 11044; principal; 2018-10-28 13:10)
DX: T84.59XA Infection and inflammatory reaction due to other internal joint prosthesis, initial encounter (principal); S82.852K Displaced trimalleolar fracture of left lower leg, subsequent encounter for closed fracture with nonunion; X58.XXXD Exposure to other specified factors, subsequent encounter; Y83.1 Surgical operation with implant of artificial internal device as the cause of abnormal reaction of the patient, or of later complication, without mention of misadventure at the time of the procedure; M86.8X6 Other osteomyelitis, lower leg; M06.9 Rheumatoid arthritis, unspecified; K21.9 Gastro-esophageal reflux disease without esophagitis; Z79.899 Other long term (current) drug therapy
CPT/HCPCS: 11044; 20680; 27726; 38220; 73610; 76000; 87070; 87075; 87077; 87102; 87176; 87186; 87205; 87206; 88304; 88305; 88311; 93005; C1713; J7120; A4216; J2405

== ENCOUNTER → 2018-11-21 12:48 | Outpatient (CLI) | payer MEDICARE, SELFPAY ==
[2018-10-28 12:17] VITALS: BMI 23.3
[2018-11-21 13:04] VITALS: BP 148/58; PULSE 81; RESP 16; TEMP 36.5; O2SAT 97; BMI 23.6
== END ==
PROVIDERS: Family Provider Family Medicine; PCP Family Medicine; Referring Provider Internal Medicine Rheumatology; Visit Provider Internal Medicine Rheumatology
DX: M06.9 Rheumatoid arthritis, unspecified (principal)
CPT/HCPCS: 96413; J7050; A4216; J0129

== ENCOUNTER → 2018-12-05 13:31 | Outpatient (CLI) | payer MEDICARE, SELFPAY ==
[2018-11-21 13:04] VITALS: BMI 23.6
[2018-12-05 15:15] LABS: Absolute Lymphocyte Count 1.47 X10^3/uL (0.83-4.51); Absolute Neutrophil Count 2.4 X10^3/uL (2.0-7.7); Basophil# 0.01 X10^3/uL; Basophil% 0.2 % (0-1); Eosinophil# 0.05 X10^3/uL; Eosinophils% 1.2 % (0-5); Hematocrit 37.8 % (37-47); Hemoglobin 12.6 g/dL (12.0-15.0); Lymphocyte # 1.47 X10^3/ul (4.0); Lymphocyte % 33.9 % (19-41); Mean Corp Hgb Conc 33.3 g/dL (32-36); Mean Corpuscular Hgb 30.5 pg (27.0-32.0); Mean Corpuscular Volume 91.5 fL (81-99); Mean Platelet Vol. 11.1 fl (6.2-12.0); Monocyte# 0.42 X10^3/uL; Monocyte% 9.7 % (0-10); NRBC Flagged by Analyzer 0 % (0-5); Neutrophil # 2.38 X10^3/uL (2.7-7.7); Neutrophil % 54.8 % (47-70); Platelet Count 168 K/mm3 (150-450); RBC Distribution Width CV 13.5 % (11.6-14.6); RBC Distribution Width SD 45.3 fl (35.1-43.9); Red Blood Count 4.13 M/mm3 (4.2-5.4); White Blood Count 4.3 K/mm3 (4.4-11.0)
[2018-12-05 15:30] LABS: ALB/GLOB Ratio 1.1 RATIO (0.9-2.4); AST(SGOT) 19 U/L (15-37); Alanine Aminotransfer ALT/SGPT 23 U/L (13-56); Albumin, Serum 3.4 g/dL (3.2-5.0); Alkaline Phosphatase 54 U/L (45-117); Anion Gap 8 (5-15); BUN 15 mg/dL (7-18); BUN/Creat Ratio 17.8 RATIO (10-20); Calcium,Total 8.9 mg/dL (8.5-10.1); Chloride 107 mmol/L (98-107); Creatinine, Serum 0.84 mg/dL (0.55-1.02); EST Glomerular Filtration Rate 69 mL/min (>60); Est Glom Filt Rate - Afr Amer 83 mL/min (>60); Glucose 132 mg/dL (74-106); Potassium 3.9 mmol/L (3.5-5.1); Protein, Total 6.4 g/dL (6.4-8.2); Sodium Level 141 mmol/L (136-145)
== END ==
PROVIDERS: Family Provider Family Medicine; PCP Family Medicine; Referring Provider Internal Medicine Rheumatology; Visit Provider Internal Medicine Rheumatology
DX: M05.70 Rheumatoid arthritis with rheumatoid factor of unspecified site without organ or systems involvement (principal); M50.30 Other cervical disc degeneration, unspecified cervical region; Z85.3 Personal history of malignant neoplasm of breast; Z79.899 Other long term (current) drug therapy
CPT/HCPCS: 36415; 80053; 85025

== ENCOUNTER → 2018-12-28 07:26 | Outpatient (CLI) | payer MEDICARE, SELFPAY ==
[2018-11-21 13:04] VITALS: BMI 23.6
--- NOTE | 2018-12-28 07:27 | CT_ITS ---
STUDY: CT BRAIN WITH AND WITHOUT CONTRAST REASON FOR EXAM: Female, 83 years old. Headaches for 2 weeks. History of breast cancer. RADIATION DOSAGE (If Supplied By Facility): CTDIvol = ( 44.99 ) mGy, DLP = ( 1547.23 ) mGycm TECHNIQUE: Transaxial CT imaging of the brain was performed pre and post contrast administration. The examination was performed with intravenous administration of 50 IV Isovue 370. Individualized dose optimization techniques were used for this CT. COMPARISON: None. FINDINGS: Normal soft tissue structures. Normal calvarium. Negative for osteolytic or blastic bone lesions. Normal size ventricles and extra-axial spaces for the patient's age. There are areas of decreased attenuation within the white matter tracts of the supratentorial brain, consistent with microvascular disease changes. Normal basal ganglia and thalami. Normal brainstem. Normal cerebellum. Normal intracranial arterial and venous anatomy. Negative for enhancing lesion or vascular malformation. There is no intracranial hemorrhage. There are no findings of an acute ischemic infarction. Minimal area of mucosal thickening in the inferior recess of the left frontal sinus. CT/Brain/Head W/WO Contrast IMPRESSION: No acute intracranial findings. Minimal involutional changes entirely appropriate for age. Negative for hemorrhage, hematoma or mass density. Negative for enhancing or vascular abnormality. Electronically Signed: Briana Mg MD at 17:05 EDT , Service support ,
== END ==
PROVIDERS: Family Provider Family Medicine; PCP Family Medicine; Referring Provider Family Medicine; Visit Provider Family Medicine
DX: R51 Headache (principal)
CPT/HCPCS: 70470; Q9967

== ENCOUNTER → 2018-12-28 10:49 | Outpatient (CLI) | payer MEDICARE, SELFPAY ==
[2018-11-21 13:04] VITALS: BMI 23.6
[2018-12-28 10:55] VITALS: BP 134/65; PULSE 99; RESP 16; TEMP 36.6; O2SAT 98; BMI 22.9
== END ==
PROVIDERS: Family Provider Family Medicine; PCP Family Medicine; Referring Provider Internal Medicine Rheumatology; Visit Provider Internal Medicine Rheumatology
DX: M06.9 Rheumatoid arthritis, unspecified (principal); R51 Headache
CPT/HCPCS: 70470; 96413; J7050; Q9967; J0129

== ENCOUNTER → 2019-02-02 09:53 | Outpatient (CLI) | payer MEDICARE, SELFPAY ==
[2018-12-28 10:55] VITALS: BMI 22.9
[2019-02-02 10:11] VITALS: BP 146/59; PULSE 80; RESP 16; TEMP 36.4; O2SAT 100; BMI 21.8
== END ==
PROVIDERS: Family Provider Family Medicine; PCP Family Medicine; Referring Provider Internal Medicine Rheumatology; Visit Provider Internal Medicine Rheumatology
DX: M06.9 Rheumatoid arthritis, unspecified (principal)
CPT/HCPCS: 96413; J7050; A4216; J0129

== ENCOUNTER → 2019-03-01 10:48 | Outpatient (CLI) | payer MEDICARE, SELFPAY ==
[2019-02-02 10:11] VITALS: BMI 21.8
[2019-03-01 11:19] VITALS: BP 138/54; PULSE 80; RESP 16; TEMP 36.4; O2SAT 97; BMI 21.9
== END ==
PROVIDERS: Family Provider Family Medicine; PCP Family Medicine; Referring Provider Internal Medicine Rheumatology; Visit Provider Internal Medicine Rheumatology
DX: M06.9 Rheumatoid arthritis, unspecified (principal)
CPT/HCPCS: 96413; J7050; A4216; J0129

== ENCOUNTER → 2019-03-03 11:28 | Outpatient (CLI) | payer MEDICARE, SELFPAY ==
[2019-03-01 11:19] VITALS: BMI 21.9
[2019-03-03 14:10] LABS: Absolute Lymphocyte Count 0.83 X10^3/uL (0.83-4.51); Absolute Neutrophil Count 4.7 X10^3/uL (2.0-7.7); Basophil# 0.02 X10^3/uL; Basophil% 0.3 % (0-1); Eosinophil# 0.02 X10^3/uL; Eosinophils% 0.3 % (0-5); Hematocrit 42.1 % (37-47); Hemoglobin 13.7 g/dL (12.0-15.0); Lymphocyte # 0.83 X10^3/ul (4.0); Lymphocyte % 14.3 % (19-41); Mean Corp Hgb Conc 32.5 g/dL (32-36); Mean Corpuscular Hgb 30.8 pg (27.0-32.0); Mean Corpuscular Volume 94.6 fL (81-99); Mean Platelet Vol. 11.7 fl (6.2-12.0); Monocyte# 0.18 X10^3/uL; Monocyte% 3.1 % (0-10); NRBC Flagged by Analyzer 0 % (0-5); Neutrophil # 4.72 X10^3/uL (2.7-7.7); Neutrophil % 81.5 % (47-70); POSITIVE MORPHOLOGY YES; Platelet Count 195 K/mm3 (150-450); RBC Distribution Width CV 13.3 % (11.6-14.6); RBC Distribution Width SD 46.4 fl (35.1-43.9); Red Blood Count 4.45 M/mm3 (4.2-5.4); White Blood Count 5.8 K/mm3 (4.4-11.0)
[2019-03-03 14:18] LABS: Differential Indicated SCAN CRITERIA MET
[2019-03-03 14:55] LABS: ALB/GLOB Ratio 1.1 RATIO (0.9-2.4); AST(SGOT) 22 U/L (15-37); Alanine Aminotransfer ALT/SGPT 22 U/L (13-56); Albumin, Serum 3.8 g/dL (3.2-5.0); Alkaline Phosphatase 55 U/L (45-117); Anion Gap 10 (5-15); BUN 22 mg/dL (7-18); BUN/Creat Ratio 25.7 RATIO (10-20); Calcium,Total 9.6 mg/dL (8.5-10.1); Chloride 104 mmol/L (98-107); Creatinine, Serum 0.86 mg/dL (0.55-1.02); EST Glomerular Filtration Rate 68 mL/min (>60); Est Glom Filt Rate - Afr Amer 82 mL/min (>60); Globulin 3.5 g/dL (2.2-4.2); Glucose 133 mg/dL (74-106); Potassium 4.2 mmol/L (3.5-5.1); Protein, Total 7.3 g/dL (6.4-8.2); Sodium Level 140 mmol/L (136-145)
[2019-03-03 15:28] LABS: Platelet Estimate ADEQUATE (ADEQ); Reactive Lymphocyte 1+
== END ==
PROVIDERS: Family Provider Family Medicine; PCP Family Medicine; Referring Provider Internal Medicine Rheumatology; Visit Provider Internal Medicine Rheumatology
DX: M05.70 Rheumatoid arthritis with rheumatoid factor of unspecified site without organ or systems involvement (principal); M50.30 Other cervical disc degeneration, unspecified cervical region; Z85.3 Personal history of malignant neoplasm of breast; Z79.899 Other long term (current) drug therapy
CPT/HCPCS: 36415; 80053; 85025

== ENCOUNTER → 2019-03-29 10:44 | Outpatient (CLI) | payer MEDICARE, SELFPAY ==
[2019-03-01 11:19] VITALS: BMI 21.9
[2019-03-29 10:56] VITALS: BP 138/86; PULSE 77; RESP 16; TEMP 36.2; O2SAT 100; BMI 22.1
[2019-03-29 12:06] VITALS: BP 134/56; PULSE 73; RESP 16; TEMP 36.4; O2SAT 100
== END ==
PROVIDERS: Family Provider Family Medicine; PCP Family Medicine; Referring Provider Internal Medicine Rheumatology; Visit Provider Internal Medicine Rheumatology
DX: M06.9 Rheumatoid arthritis, unspecified (principal)
CPT/HCPCS: 96413; J7050; A4216; J0129

== ENCOUNTER → 2019-04-27 09:56 | Outpatient (CLI) | payer MEDICARE, SELFPAY ==
[2019-03-29 10:56] VITALS: BMI 22.1
[2019-04-17 11:35] VITALS: BMI 22.1
[2019-04-27 10:12] VITALS: BP 132/64; PULSE 80; RESP 16; TEMP 36.7; O2SAT 100; BMI 22.1
== END ==
PROVIDERS: Family Provider Family Medicine; PCP Family Medicine; Referring Provider Internal Medicine Rheumatology; Visit Provider Internal Medicine Rheumatology
DX: M06.9 Rheumatoid arthritis, unspecified (principal)
CPT/HCPCS: 96413; J7050; A4216; J0129

== ENCOUNTER → 2019-05-24 10:52 | Outpatient (CLI) | payer MEDICARE, SELFPAY ==
[2019-04-27 10:12] VITALS: BMI 22.1
[2019-05-24 11:17] VITALS: BP 129/79; PULSE 85; RESP 16; TEMP 36.5; BMI 22.1
== END ==
PROVIDERS: Family Provider Family Medicine; PCP Family Medicine; Referring Provider Internal Medicine Rheumatology; Visit Provider Internal Medicine Rheumatology
DX: M06.9 Rheumatoid arthritis, unspecified (principal)
CPT/HCPCS: 96413; J7050; A4216; J0129

== ENCOUNTER → 2019-05-31 10:46 | Outpatient (CLI) | payer MEDICARE, SELFPAY ==
[2019-05-24 11:17] VITALS: BMI 22.1
[2019-05-31 12:28] LABS: ALB/GLOB Ratio 1.2 RATIO (0.9-2.4); AST(SGOT) 16 U/L (15-37); Alanine Aminotransfer ALT/SGPT 22 U/L (13-56); Albumin, Serum 3.7 g/dL (3.2-5.0); Alkaline Phosphatase 53 U/L (45-117); Anion Gap 2 (5-15); BUN 19 mg/dL (7-18); BUN/Creat Ratio 22.8 RATIO (10-20); Calcium,Total 9.5 mg/dL (8.5-10.1); Chloride 107 mmol/L (98-107); Creatinine, Serum 0.84 mg/dL (0.55-1.02); EST Glomerular Filtration Rate 69 mL/min (>60); Est Glom Filt Rate - Afr Amer 84 mL/min (>60); Globulin 3.1 g/dL (2.2-4.2); Glucose 99 mg/dL (74-106); Potassium 4.3 mmol/L (3.5-5.1); Protein, Total 6.8 g/dL (6.4-8.2); Sodium Level 139 mmol/L (136-145)
[2019-05-31 12:29] LABS: Absolute Lymphocyte Count 1.01 X10^3/uL (0.83-4.51); Basophil# 0.02 X10^3/uL; Basophil% 0.4 % (0-1); Eosinophil# 0.12 X10^3/uL; Eosinophils% 2.6 % (0-5); Hematocrit 40.9 % (37-47); Hemoglobin 13.4 g/dL (12.0-15.0); Lymphocyte # 1.01 X10^3/ul (4.0); Lymphocyte % 22.2 % (19-41); Mean Corp Hgb Conc 32.8 g/dL (32-36); Mean Corpuscular Hgb 30.8 pg (27.0-32.0); Mean Platelet Vol. 11.3 fl (6.2-12.0); Monocyte# 0.42 X10^3/uL; Monocyte% 9.2 % (0-10); NRBC Flagged by Analyzer 0 % (0-5); Neutrophil # 2.95 X10^3/uL (2.7-7.7); Neutrophil % 64.9 % (47-70); Platelet Count 187 K/mm3 (150-450); RBC Distribution Width CV 13.3 % (11.6-14.6); RBC Distribution Width SD 46.2 fl (35.1-43.9); Red Blood Count 4.35 M/mm3 (4.2-5.4); White Blood Count 4.6 K/mm3 (4.4-11.0)
== END ==
PROVIDERS: PCP Family Medicine; Referring Provider Internal Medicine Rheumatology; Visit Provider Internal Medicine Rheumatology
DX: M06.9 Rheumatoid arthritis, unspecified (principal); M50.30 Other cervical disc degeneration, unspecified cervical region; Z79.899 Other long term (current) drug therapy; Z85.3 Personal history of malignant neoplasm of breast
CPT/HCPCS: 36415; 80053; 85025

== ENCOUNTER → 2019-06-21 10:49 | Outpatient (CLI) | payer MEDICARE, SELFPAY ==
[2019-04-27 10:12] VITALS: BMI 22.1
[2019-05-24 11:17] VITALS: BMI 22.1
[2019-06-21 11:05] VITALS: BP 137/60; PULSE 87; RESP 16; TEMP 36.6; O2SAT 100; BMI 22.1
== END ==
PROVIDERS: PCP Family Medicine; Referring Provider Internal Medicine Rheumatology; Visit Provider Internal Medicine Rheumatology
DX: M06.9 Rheumatoid arthritis, unspecified (principal)
CPT/HCPCS: 96413; J7050; A4216; J0129

== ENCOUNTER → 2019-06-30 10:43 | Outpatient (CLI) | payer MEDICARE, SELFPAY ==
[2019-04-17 11:35] VITALS: BMI 22.1
[2019-06-21 11:05] VITALS: BMI 22.1
--- NOTE | 2019-06-30 10:52 | BI_ITS ---
MAMMOGRAPHY - UNILATERAL SCREENING: LEFT BREAST REASON FOR EXAM: Female, 83 years old. Routine annual screening examination (unilateral). PERTINENT HISTORY: TECHNIQUE: Digital unilateral breast giovanny (3D mammographic acquisition) in the CC and MLO projections. 2-D mediolateral oblique (MLO) and craniocaudad (CC) views of both breasts were obtained. CAD: Full Field Digital Mammography with Computer Added Detection was performed. COMPARISON: Previous mammogram obtained on 06/28/2018 FINDINGS: Breast Composition: Heterogeneously dense There are no dominant masses. A left vascular port is noted in place. This patient has had a previous stereotactic biopsy. Adjacent to the biopsy clip are some microcalcifications which appear to slightly increased when compared with the previous study obtained on 06/28/2018. This probably due to fat necrosis from a previous biopsy. No other significant abnormalities are identified. BI/SCREEN MAMM (CAD) W/GIOVANNY UNI L IMPRESSION: Stable unilateral screening mammogram. Yearly follow-up mammogram recommended. (A) ASSESSMENT CATEGORY: BIRADS Category 2: Benign. A letter regarding these results will be sent to the patient by the facility within 30 days. Approximately 10% of breast cancers are not detected by mammography. A normal mammogram should not delay biopsy of a clinically suspicious abnormality. [id number] Electronically Signed: Sharad Forbes, at 16:38 EST Tel , Service support ,
== END ==
PROVIDERS: Family Provider Family Medicine; PCP Family Medicine; Referring Provider Nurse Practitioner Family; Visit Provider Nurse Practitioner Family
DX: Z12.31 Encounter for screening mammogram for malignant neoplasm of breast (principal)
CPT/HCPCS: 77063; 77067

== ENCOUNTER → 2019-07-19 10:56 | Outpatient (CLI) | payer MEDICARE, SELFPAY ==
[2019-06-21 11:05] VITALS: BMI 22.1
[2019-07-19 11:03] VITALS: BP 128/54; PULSE 78; RESP 16; TEMP 36.6; O2SAT 100; BMI 22.1
[2019-07-19] MEDS: 0.9% NaCl VAD Flush IV ×2 (11:15→12:07)
== END ==
PROVIDERS: PCP Family Medicine; Referring Provider Internal Medicine Rheumatology; Visit Provider Internal Medicine Rheumatology
DX: M06.9 Rheumatoid arthritis, unspecified (principal)
CPT/HCPCS: 96365; 96413; A4216; J0129

== ENCOUNTER → 2019-08-16 10:52 | Outpatient (CLI) | payer MEDICARE, SELFPAY ==
[2019-06-21 11:05] VITALS: BMI 22.1
[2019-07-19 11:03] VITALS: BMI 22.1
[2019-08-16 11:03] VITALS: BP 157/74; PULSE 86; RESP 18; TEMP 36.4; O2SAT 100; BMI 22.3
[2019-08-16] MEDS: 0.9% NaCl VAD Flush IV ×2 (11:21→12:14)
[2019-08-16] MEDS: 0.9% NaCl IVPB Med Flush (250 mL) 15 ML IV (11:24)
[2019-08-16 11:34] LABS: Absolute Lymphocyte Count 1.31 X10^3/uL (0.83-4.51); Absolute Neutrophil Count 2.5 X10^3/uL (2.0-7.7); Basophil# 0.02 X10^3/uL; Basophil% 0.5 % (0-1); Eosinophil# 0.03 X10^3/uL; Eosinophils% 0.7 % (0-5); Hematocrit 38.7 % (37-47); Hemoglobin 12.9 g/dL (12.0-15.0); Lymphocyte # 1.31 X10^3/ul (4.0); Lymphocyte % 29.9 % (19-41); Mean Corp Hgb Conc 33.3 g/dL (32-36); Mean Platelet Vol. 10.9 fl (6.2-12.0); Monocyte% 11.4 % (0-10); NRBC Flagged by Analyzer 0 % (0-5); Neutrophil # 2.52 X10^3/uL (2.7-7.7); Neutrophil % 57.5 % (47-70); Platelet Count 157 K/mm3 (150-450); RBC Distribution Width CV 13.2 % (11.6-14.6); RBC Distribution Width SD 44.3 fl (35.1-43.9); Red Blood Count 4.16 M/mm3 (4.2-5.4); White Blood Count 4.4 K/mm3 (4.4-11.0)
[2019-08-16 11:53] LABS: ALB/GLOB Ratio 1.1 RATIO (0.9-2.4); AST(SGOT) 19 U/L (15-37); Alanine Aminotransfer ALT/SGPT 20 U/L (13-56); Albumin, Serum 3.5 g/dL (3.2-5.0); Alkaline Phosphatase 48 U/L (45-117); Anion Gap 4 (5-15); BUN 18 mg/dL (7-18); BUN/Creat Ratio 22.6 RATIO (10-20); Calcium,Total 8.9 mg/dL (8.5-10.1); Chloride 109 mmol/L (98-107); EST Glomerular Filtration Rate 73 mL/min (>60); Est Glom Filt Rate - Afr Amer 89 mL/min (>60); Estimated Creatinine Clearance 48.79 ml/min; Globulin 3.2 g/dL (2.2-4.2); Glucose 107 mg/dL (74-106); Potassium 4.1 mmol/L (3.5-5.1); Protein, Total 6.7 g/dL (6.4-8.2); Sodium Level 140 mmol/L (136-145)
== END ==
PROVIDERS: PCP Family Medicine; Referring Provider Internal Medicine Rheumatology; Visit Provider Internal Medicine Rheumatology
DX: M05.70 Rheumatoid arthritis with rheumatoid factor of unspecified site without organ or systems involvement (principal); Z79.899 Other long term (current) drug therapy; M50.30 Other cervical disc degeneration, unspecified cervical region; Z85.3 Personal history of malignant neoplasm of breast
CPT/HCPCS: 36591; 80053; 85025; 96365; 96413; J7050; A4216; J0129

== ENCOUNTER → 2019-09-13 10:53 | Outpatient (CLI) | payer MEDICARE, SELFPAY ==
[2019-08-16 11:03] VITALS: BMI 22.3
[2019-09-13 11:08] VITALS: BP 146/62; PULSE 88; RESP 16; TEMP 36.9; O2SAT 99
[2019-09-13] MEDS: 0.9 % NaCl (Sterile) Posiflush 10 mL IV (11:32)
[2019-09-13] MEDS: 0.9% NaCl IVPB Med Flush (250 mL) 15 ML IV (11:32)
[2019-09-13] MEDS: 0.9% NaCl VAD Flush IV (12:19)
[2019-09-13 12:20] VITALS: BP 149/67; PULSE 84
== END ==
PROVIDERS: PCP Family Medicine; Referring Provider Internal Medicine Rheumatology; Visit Provider Internal Medicine Rheumatology
DX: M06.9 Rheumatoid arthritis, unspecified (principal)
CPT/HCPCS: 96365; 96413; J7050; A4216; J0129

== ENCOUNTER → 2019-09-14 16:00 | Outpatient (CLI) | payer MEDICARE, SELFPAY ==
[2019-08-16 11:03] VITALS: BMI 22.3
== END ==
PROVIDERS: PCP Family Medicine; Visit Provider Podiatrist
DX: L97.329 Non-pressure chronic ulcer of left ankle with unspecified severity (principal)
CPT/HCPCS: 87070; 87075; 87205

== ENCOUNTER → 2019-10-11 10:51 | Outpatient (CLI) | payer MEDICARE, SELFPAY ==
[2019-08-16 11:03] VITALS: BMI 22.3
[2019-10-11 11:10] VITALS: BP 126/70; PULSE 79; RESP 16; O2SAT 97; BMI 22.2
[2019-10-11] MEDS: 0.9% NaCl IVPB Med Flush (250 mL) 15 ML IV (11:22)
[2019-10-11] MEDS: 0.9% NaCl VAD Flush IV ×2 (12:01→12:13)
== END ==
PROVIDERS: PCP Family Medicine; Referring Provider Internal Medicine Rheumatology; Visit Provider Internal Medicine Rheumatology
DX: M06.9 Rheumatoid arthritis, unspecified (principal)
CPT/HCPCS: 96365; J7050; A4216; J0129

== ENCOUNTER → 2019-11-08 10:49 | Outpatient (CLI) | payer MEDICARE, SELFPAY ==
[2019-08-16 11:03] VITALS: BMI 22.3
[2019-10-18 11:30] VITALS: BMI 22.8
[2019-11-08] MEDS: 0.9% NaCl Peripheral Flush Adult/Peds IV ×2 (11:17→12:31)
[2019-11-08 11:27] LABS: Absolute Neutrophil Count 2.4 X10^3/uL (2.0-7.7); Basophil# 0.03 X10^3/uL; Basophil% 0.7 % (0-1); Eosinophil# 0.09 X10^3/uL; Eosinophils% 2.2 % (0-5); Hematocrit 37.6 % (37-47); Hemoglobin 12.4 g/dL (12.0-15.0); Lymphocyte % 24.9 % (19-41); Mean Corpuscular Hgb 31.8 pg (27.0-32.0); Mean Corpuscular Volume 96.4 fL (81-99); Monocyte% 12.5 % (0-10); NRBC Flagged by Analyzer 0 % (0-5); Neutrophil # 2.38 X10^3/uL (2.7-7.7); Neutrophil % 59.5 % (47-70); Platelet Count 175 K/mm3 (150-450); RBC Distribution Width CV 12.6 % (11.6-14.6); RBC Distribution Width SD 44.6 fl (35.1-43.9)
[2019-11-08] MEDS: 0.9% NaCl IVPB Med Flush (250 mL) 15 ML IV (11:30)
[2019-11-08 11:47] LABS: ALB/GLOB Ratio 1.2 RATIO (0.9-2.4); AST(SGOT) 17 U/L (15-37); Alanine Aminotransfer ALT/SGPT 18 U/L (13-56); Albumin, Serum 3.5 g/dL (3.2-5.0); Alkaline Phosphatase 49 U/L (45-117); Anion Gap 5 (5-15); BUN 20 mg/dL (7-18); BUN/Creat Ratio 24.8 RATIO (10-20); Calcium,Total 8.6 mg/dL (8.5-10.1); Chloride 109 mmol/L (98-107); Creatinine, Serum 0.81 mg/dL (0.55-1.02); EST Glomerular Filtration Rate 72 mL/min (>60); Est Glom Filt Rate - Afr Amer 87 mL/min (>60); Glucose 112 mg/dL (74-106); Potassium 4.5 mmol/L (3.5-5.1); Protein, Total 6.5 g/dL (6.4-8.2); Sodium Level 141 mmol/L (136-145)
[2019-11-08 12:22] VITALS: BP 122/66; PULSE 73; RESP 16; TEMP 36.4; O2SAT 96; BMI 22.9
== END ==
PROVIDERS: PCP Family Medicine; Referring Provider Internal Medicine Rheumatology; Visit Provider Internal Medicine Rheumatology
DX: M05.70 Rheumatoid arthritis with rheumatoid factor of unspecified site without organ or systems involvement (principal); M50.30 Other cervical disc degeneration, unspecified cervical region; Z79.899 Other long term (current) drug therapy; Z85.3 Personal history of malignant neoplasm of breast
CPT/HCPCS: 96365; 80053; 85025; J7050; A4216; J0129

== ENCOUNTER → 2019-11-16 09:31 | Outpatient (CLI) | payer MEDICARE, SELFPAY ==
[2019-11-08 12:22] VITALS: BMI 22.9
[2019-11-20 03:06] LABS: QNTFERON TB Mitogen Value 9.91 IU/mL (.); QNTFERON TB Nil Value 0.03 IU/mL (.); QNTFERON TB1+ Ag Value 0.04 IU/mL (.); QNTFERON TB2+ Ag Value 0.03 IU/mL (.)
[2019-11-20 11:19] LABS: QNTIFERON TB Positive Criteria Negative (Negative)
== END ==
PROVIDERS: PCP Family Medicine; Referring Provider Internal Medicine Rheumatology; Visit Provider Internal Medicine Rheumatology
DX: M06.9 Rheumatoid arthritis, unspecified (principal); M05.70 Rheumatoid arthritis with rheumatoid factor of unspecified site without organ or systems involvement; M50.30 Other cervical disc degeneration, unspecified cervical region; Z79.899 Other long term (current) drug therapy; Z85.3 Personal history of malignant neoplasm of breast
CPT/HCPCS: 36415; 86480

== ENCOUNTER → 2019-12-06 10:53 | Outpatient (CLI) | payer MEDICARE, SELFPAY ==
[2019-10-18 11:30] VITALS: BMI 22.8
[2019-11-08 12:22] VITALS: BMI 22.9
[2019-12-06] MEDS: 0.9% NaCl IVPB Med Flush (250 mL) 15 ML IV (11:26)
[2019-12-06] MEDS: 0.9% NaCl Peripheral Flush Adult/Peds IV ×2 (11:27→12:40)
[2019-12-06 11:28] VITALS: BP 164/72; PULSE 82; RESP 16; TEMP 36.6; O2SAT 98; BMI 22.7
[2019-12-06 12:33] VITALS: BP 137/72; PULSE 76; RESP 16
== END ==
PROVIDERS: PCP Family Medicine; Referring Provider Internal Medicine Rheumatology; Visit Provider Internal Medicine Rheumatology
DX: M06.9 Rheumatoid arthritis, unspecified (principal)
CPT/HCPCS: 96365; 96413; J7050; A4216; J0129

== ENCOUNTER → 2019-12-13 16:34 | Outpatient (CLI) | payer MEDICARE, SELFPAY ==
[2019-12-13 15:13] VITALS: BMI 22.7
--- NOTE | 2019-12-13 16:45 | RAD_ITS ---
STUDY: X-RAY - LEFT ANKLE REASON FOR EXAM: Female, 84 years old. PATIENT STATES HAS HAD A LEFT ANKLE ULCER FOR ABOUT 11 WEEKS NOW SINCE HER RECENT LEFT ANKLE SURGERY. THE ULCER IS JUST ABOVE HER LEFT LATERAL MALLEOLUS. TECHNIQUE: 3 view(s) of the ankle. COMPARISON: 10/28/2018 FINDINGS: Post surgical changes status post open reduction internal fixation of distal tibial and fibular fracture with indwelling orthopedic hardware.. There is little appreciable callus demonstrated at the fibular fracture site and there is mildly increased lucency within the bone. Possibility of acute osteomyelitis not excluded. RAD/Ankle min 3 Views IMPRESSION: . Apparent delayed healing of the distal fibular fracture. Cannot exclude osteomyelitis. Three-phase bone scan or MRI would be useful for further evaluation if indicated Electronically Signed: Keyur Farrell MD at 21:10 EDT , Service support ,
== END ==
PROVIDERS: PCP Family Medicine; Referring Provider Podiatrist; Visit Provider Podiatrist
DX: L97.922 Non-pressure chronic ulcer of unspecified part of left lower leg with fat layer exposed (principal)
CPT/HCPCS: 11042; 73610; 99213; G0463

== ENCOUNTER 2019-12-27 14:00 | Outpatient (RCR) | payer MEDICARE, SELFPAY ==
[2019-12-06 11:28] VITALS: BMI 22.7
[2019-12-13 15:13] VITALS: BP 141/76; PULSE 81; RESP 16; TEMP 36.6; BMI 22.7
--- NOTE | 2019-12-13 23:13 | HP.PCM_ITS ---
(1) Non-pressure chronic ulcer of unspecified part of left lower leg with fat layer exposed Status: Chronic Current Visit: Yes Code(s): L97.922 - Non-pressure chronic ulcer of unspecified part of left lower leg with fat layer exposed (2) Other specified peripheral vascular diseases Status: Suspected Current Visit: Yes Code(s): I73.89 - Other specified peripheral vascular diseases (3) Delayed wound healing Status: Chronic Current Visit: Yes Code(s): T14.8XXD - Other injury of unspecified body region, subsequent encounter (4) Venous insufficiency (chronic) (peripheral) Status: Suspected Current Visit: Yes Code(s): I87.2 - Venous insufficiency (chronic) (peripheral) (5) Rheumatoid arthritis Status: Chronic Current Visit: Yes Code(s): M06.9 - Rheumatoid arthritis, unspecified (6) Right-sided breast cancer status post Status: Resolved Current Visit: Yes Comment: Status post masectomy in 2005, following with Dr. 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 Status: Suspected Current Visit: Yes Qualifiers: Encounter type: subsequent encounter Qualified Code(s): T84.7XXD - Infection and inflammatory reaction due to other internal orthopedic prosthetic devices, implants and grafts, subsequent encounter Code(s): T84.7XXA - Infection and inflammatory reaction due to other internal orthopedic prosthetic devices, implants and grafts, initial encounter History of Present Illness Date of Service: 12/13/19 Chief Complaint: Left leg ulcer History of Wound: This 84-year-old female presents to the wound healing center for delayed healing of her left lateral lower leg. She has been initial history of trimalleolus left ankle fracture s/p open reduction internal fixation by Dr. Hernandez in [place]. Patient subsequently developed painful hardware, nonunion and fibular fracture site with possible underlying infection. She has elected to proceed forward with removal of the painful retained hardware, incision and drainage with debridement, fibular IM eileen placement, and placement of grafting, also bone marrow aspiration and placement of concentrated bone marrow aspirate at the nonunion site. This was performed by Dr. Rios at [facility] on 10-28-2018. She also subsequently had irritation with 1 of her suture buttons from the syndesmosis tight rope and this was removed in clinic with Dr. Rios. She has been changing her dressing with Chiqui and sometimes Betadine gauze. She likes to swim and has been avoiding this activity. She denies current fever, chill, nausea, vomiting. She denies new or recent injury. She has rheumatoid arthritis and continues on her antirheumatic medication. She is treated by Dr. Howard. She states she tries to sleep on her right side but sometimes it is unavoidable to put pressure on the left limb. She denies claudication symptoms. She denies burning tingling. She has some lower extremity edema and relates this happened after her knee surgeries. Past Medical History Past Medical History: Chronic Problems (Last Reviewed 10/18/19 @ 11:27 by Gianna Christianson) Rheumatoid arthritis (Chronic) Osteopenia (Chronic) History of malignant neoplasm of right breast (Chronic) Non-pressure chronic ulcer of unspecified part of left lower leg with fat layer exposed (Chronic) Delayed wound healing (Chronic) Surgical History: mastectomy, - Allergies/Adverse Reactions: Allergies No Known Allergies Allergy (Verified 12/13/19 15:42) Home Medications: Ambulatory Orders Medication Instructions Recorded Folic Acid 1 mg PO BIDCM 02/07/13 Multivitamin [Daily Multiple 1 each PO DAILY #0 02/07/13 Vitamin] Naproxen Sodium [Aleve] 440 mg PO DAILY 02/07/13 leucovorin tablet 5 mg PO QWEEK 04/02/16 Pantoprazole Sodium [Protonix] 40 mg PO DAILY 04/17/17 Calcium Carbonate [Tums] 1,000 mg PO DAILY@0800 10/26/18 Abatacept [Orencia] mg SQ 12/13/19 Methotrexate mg 12/13/19 Lives: Alone Smoking Status: Never smoker Tobacco Use: Non-smoker Review of Systems Constitutional: Denies: Chills, Fever Cardiovascular: Denies: Claudication Respiratory: Denies: Cough Gastrointestinal: Denies: Diarrhea, Nausea, Vomiting Musculoskeletal: Reports: Leg Pain. Denies: Foot Pain Skin: Reports: Skin Changes, Wounds Neurological: Reports: Balance problems. Denies: Numbness Hematologic/ Lymphatic: Reports: Easy Bruising - Physical Exam Vital Signs Temp Pulse Resp BP 97.8 F 81 16 141/76 H 12/13/19 15:13 12/13/19 15:13 12/13/19 15:13 12/13/19 15:13 General: Alert, Oriented x3, Cooperative, No apparent distress HEENT: Atraumatic Extremities: No cyanosis, Capillary Refill Less than 3 Seconds - All digits bilateral, No Calf Tenderness - Negative Anderson and Cramer sign. Compartment soft to palpate bilateral lower extremity. No bogginess or fluctuance on palpation, Diminished Peripheral Pulses, Edema - Bilateral lower extremities mild, Tenderness - Mild tenderness on open ulcer site., - - Active and passive range of motion of ankle is smooth and gliding without pain however there is visualized tension applied at the elisa-ulcer site with this motion activity. There is no significant reduction in ankle or digital strength Skin: Ulcer/ Wound - No purulence, erythema, string, odor, acute signs of in fection. The ulcer is very small and it does not probe deeper beyond the initial epithelial skin layer however I do not feel any firm hardware or direct probe to bone. No eschar or macerations noted Wound Measurements and Assessment WC - Nurse 1 - General Ulcer Measurement Start: 12/13/19 15:11 Freq: Status: Active Protocol: Activity Type Activity Date Activity User E-Sign Co-Sign Detail Recorded Client Recorded Date Recorded By Document 12/13/19 15:29 [facility] [id number] 12/13/19 15:31 [facility] 12/13/19 15:29 Wound Center Nurse 1 [Ulcer Assessment] #1- L LATERAL ANKLE -Combined with other wound No -Current Size (cm) - Length 0.3 -Current Size (cm) - Width 0.9 -Current Size (cm) - Depth 0.1 -Total Square Cm 0.27 -Date of Last Picture (Recall this 12/13/19 field) -Photo Taken Yes -Epithelialization None Present -Tunneling No -Undermining/Tunneling No -Circular Undermining No -Exudate Amt Small -Exudate Type Serous -Wound Margin Distinct, Outline Attached -Granulation Amt Large (67-100%) -Granulation Quality [place] -Slough/Fibrin No -Necrosis Amt None Present (0 %) -Texture (Elisa-wound Skin Appearance) Assessed, Scarring -Moisture (Elisa-wound Skin Appearance Assessed ) -Color (Elisa-wound Skin Appearance) Assessed -Temperature (Elisa-wound Skin No Abnormality Appearance) (Pt Warm) -Tenderness on Palpation (Elisa-wound No Skin Appearance) -Ulcer Cleansing Rinsed/ Irrigated with Saline -Foul Odor after Cleansing No -Anesthetic Used 5% Lidocaine Gel [Edema Assessment] -Lower Limb Edema Present Yes -Left Calf (cm) 35.2 -Left Ankle (cm) 22.1 - Nurse 2 - General Ulcer CM Notes Start: 12/13/19 15:11 Freq: Status: Active Protocol: Activity Type Activity Date Activity User E-Sign Co-Sign Detail Recorded Client Recorded Date Recorded By Document 12/13/19 15:42 [id number] 12/13/19 15:49 12/13/19 15:42 Wound Center Nurse 2 [Procedure/Treatment] #1- L LATERAL ANKLE -Time 15:45 -Correct Patient Yes -Correct Side, Site, Position Yes -Correct Procedure Yes -Procedure Performed Yes -Type of Procedure Debridement -Clinical Debridement Subcutaneous -Post Debridement Size (cm) - Length 0.3 -Post Debridement Size (cm) - Width 1.0 -Post Debridement Size (cm) - Depth 0.2 -Total Square (cm) 0.30 -Wound/Ulcer Outcome Not Healed -Ulcer Cleansing Rinsed/ Irrigated with Saline -Foul Odor after Cleansing No -Bioengineered Tissue No -Bleeding Controlled with Pressure -Offloading No -Treatment Response Procedure Tolerated Well [See Physician Procedure note for Specifics] Pain Scale: 0-10 Numeric [Pain] -Is Patient Pain Free? Yes Musculoskeletal: No Tenderness to Palpation of Joints or Extremities, Muscle Wasting Neurological: Sensory exam intact to light touch and pain Psych/Mental Status: Normal Affect, Appropriate Debridement Note Post-Debridement Measurements/Treatment - Nurse 2 - General Ulcer CM Notes Start: 12/13/19 15:11 Freq: Status: Active Protocol: Activity Type Activity Date Activity User E-Sign Co-Sign Detail Recorded Client Recorded Date Recorded By Document 12/13/19 15:42 [id number] 12/13/19 15:49 12/13/19 15:42 Wound Center Nurse 2 #1- L LATERAL ANKLE -Time 15:45 -Correct Patient Yes -Correct Side, Site, Position Yes -Correct Procedure Yes -Procedure Performed Yes -Type of Procedure Debridement -Clinical Debridement Subcutaneous -Post Debridement Size (cm) - Length 0.3 -Post Debridement Size (cm) - Width 1.0 -Post Debridement Size (cm) - Depth 0.2 -Total Square (cm) 0.30 -Wound/Ulcer Outcome Not Healed -Ulcer Cleansing Rinsed/ Irrigated with Saline -Foul Odor after Cleansing No -Bioengineered Tissue No -Bleeding Controlled with Pressure -Offloading No -Treatment Response Procedure Tolerated Well Pain Scale: 0-10 Numeric Is Patient Pain Free? Yes Wound debrided: lateral lower leg Laterality: Left Type of Debridement: Excisional debridement Anesthesia Used: 5% Lidocaine Gel Depth: in the subcutaneous layer Percentage of wound debrided: 100 Instrument Used: #15 blade Tissue Removed: fibrous, devitalized subcutaneous, biofilm, slough Severity: Fat Layer Exposed Amount of bleeding with debridement: Mild Bleeding Controlled with: Pressure Patient tolerated procedure well Assessment/Plan Active Problems (Last Reviewed 10/18/19 @ 11:27 by Gianna Christianson) Rheumatoid arthritis (Chronic) Non-pressure chronic ulcer of unspecified part of left lower leg with fat layer exposed (Chronic) Delayed wound healing (Chronic) Assessment: Left lower lateral leg ulcer, no acute signs of local infection. Contamination work-up in process. 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 Lower extremity edema potentially secondary to venous insufficiency. Peripheral vascular disease work-up in process. Malnutrition suspected. History of osteopenia. Rheumatoid arthritis. Delayed wound healing Plan: I reviewed and discussed her plan. Her case was also discussed with her referring physician, Dr. Rios. Subcutaneous excisional debridement was performed as noted in the clinical panel. To change the dressing daily with Aquacel Ag. Additional advanced wound healing product such as Regranex will be considered in the future pending her diagnostic data results and clinical progression. To avoid soaking or swimming activities. To offload with pressure reduction with Tubigrip. To elevate. A prescription for donut offloading pillow was provided to avoid laying on this site while sleeping. We discussed use of a cam walker immobilization device to reduce tension on the skin on her ankles moving. It is noted that she had a prior fall and injury while using a boot and she is very apprehensive about this. She will hold off on wearing this on a routine basis at this time. She is eager to return to exercise. I advised her to stay out of the swimming pool. I recommend she perform upper extremity resistance training as able and to ride a stationary bike with her cam walker boot in place. Her underlying infection versus contamination work-up including taking a wound culture post debridement and irrigation today for aerobic, anaerobic, and MRSA PCR. I recommended updated x-rays and this was ordered. I reviewed her recent lab work from 11-08-2019 from [facility] which did not have leukocytosis or gross abnormalities with her BMP. Her albumin level 3.5. Additional lab work-up may be warranted in the future to follow CBC or inflammatory markers such as ESR and C-reactive protein. Due to the chronicity of this wound I recommend noninvasive arterial vascular studies even though she has palpable pulses. This order was provided today. I also recommend screening her for venous insufficiency with a venous Doppler with reflux evaluation. We will help her get these prior authorized and scheduled. We discussed the importance of proper nutrition and healing. She is given nutritional supplements of Power. We discussed the importance of eating a variety of fresh fruits and vegetables and obtaining adequate protein in her diet. She will consider a nutritional referral in the future. It is noted that she has rheumatoid arthritis and some of her medications are likely contributing to her delayed healing. I have offered to review the case with her store receiver and we would likely recommend considering putting some his medications on hold until we see more appropriate progress. We also discussed future surgical intervention options if she continues to fail conservative care. We discussed excision with rotational flap and potential advanced wound healing product application. Pending her infection and contamination screening process, additional biopsies hardware removal etc. can also be considered. At this time I recommend proceeding with a conservative comprehensive wound healing plan. Answered all of her questions. She was advised to return to clinic in 1 week. Over 25 minutes was spent including this [id number] encounter, evaluation, treatment, management, education, and care coordination. . [id number]: Reviewed today -medication and allergy reconciliation process was completed. Reviewed 12-13-2019 -she is a current non- smoker. Her pneumococcal and influenza vaccinations are noted. She has a fall history with injury of over 2 times and I recommended exercise and safety precautions to prevent this in the future. This was discussed in detail. Her blood pressure was elevated and noted at 141/76. To follow-up with primary care physician. Diet and activity recommendations were reviewed.
[2019-12-14 14:35] LABS: M R Staph aureus DNA By PCR Negative (Negative); Probe Check PASS; Specimen Processing Control PASS; Staph aureus DNA By PCR NEGATIVE (Negative)
[2019-12-20 13:50] VITALS: BP 164/86; PULSE 92; RESP 18; TEMP 36.6; BMI 22.7
--- NOTE | 2019-12-20 16:05 | PCM.WC.PN ---
(1) Non-pressure chronic ulcer of unspecified part of left lower leg with fat layer exposed Status: Chronic Current Visit: Yes Code(s): L97.922 - Non-pressure chronic ulcer of unspecified part of left lower leg with fat layer exposed (2) Other specified peripheral vascular diseases Status: Suspected Current Visit: Yes Code(s): I73.89 - Other specified peripheral vascular diseases (3) Delayed wound healing Status: Chronic Current Visit: Yes Code(s): T14.8XXD - Other injury of unspecified body region, subsequent encounter (4) Venous insufficiency (chronic) (peripheral) Status: Suspected Current Visit: Yes Code(s): I87.2 - Venous insufficiency (chronic) (peripheral) (5) Rheumatoid arthritis Status: Chronic Current Visit: Yes Code(s): M06.9 - Rheumatoid arthritis, unspecified (6) Right-sided breast cancer status post Status: Resolved Current Visit: Yes Comment: Status post masectomy in 2005, following with Dr. 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 Status: Suspected Current Visit: Yes Qualifiers: Encounter type: subsequent encounter Qualified Code(s): T84.7XXD - Infection and inflammatory reaction due to other internal orthopedic prosthetic devices, implants and grafts, subsequent encounter Code(s): T84.7XXA - Infection and inflammatory reaction due to other internal orthopedic prosthetic devices, implants and grafts, initial encounter (8) Contamination Status: Acute Current Visit: Yes Type of Wound Date of Service: 12/20/19 Chief Complaint: Left leg ulcer History of Wound: This 84-year-old female presents to the wound healing center for delayed healing of her left lateral lower leg. She has been initial history of trimalleolus left ankle fracture s/p open reduction internal fixation by Dr. Hernandez in [place]. Patient subsequently developed painful hardware, nonunion and fibular fracture site with possible underlying infection. She has elected to proceed forward with removal of the painful retained hardware, incision and drainage with debridement, fibular IM eileen placement, and placement of grafting, also bone marrow aspiration and placement of concentrated bone marrow aspirate at the nonunion site. This was performed by Dr. Rios at [facility] on 10-28-2018. She also subsequently had irritation with 1 of her suture buttons from the syndesmosis tight rope and this was removed in clinic with Dr. Rois. She has been changing her dressing with Chiqui and sometimes Betadine gauze. She likes to swim and has been avoiding this activity. She denies current fever, chill, nausea, vomiting. She denies new or recent injury. She has rheumatoid arthritis and continues on her antirheumatic medication. She is treated by Dr. Howard. She states she tries to sleep on her right side but sometimes it is unavoidable to put pressure on the left limb. She did not want to proceed with a donut offloading pillow as recommended. She denies claudication symptoms. She denies burning tingling. She has some lower extremity edema and relates this happened after her knee surgeries. Her blood flow study test is scheduled for this upcoming Wednesday. Progress of Wound: stable - Physical Exam Vital Signs Temp Pulse Resp BP 97.9 F 92 18 164/86 H 12/20/19 13:50 12/20/19 13:50 12/20/19 13:50 12/20/19 13:50 General: Alert, Oriented x3, Cooperative, No apparent distress HEENT: Atraumatic Extremities: No cyanosis, Capillary Refill Less than 3 Seconds, No Calf Tenderness - Negative Anderson and Cramer, Edema - Mild, Peripheral Pulses Normal, Tenderness - Discomfort with wound manipulation Skin: Ulcer/ Wound - No purulence, erythema, streaking, odor, infection. The adjacent skin is hairless and atrophic. This ulcer is smaller in width and length however probes deep and bone and possibly the inner aspect of the intramedullary fibular eileen were also felt with a small size 1 curette Wound Measurements and Assessment WC - Nurse 1 - General Ulcer Measurement Start: 12/13/19 15:11 Freq: Status: Active Protocol: Activity Type Activity Date Activity User E-Sign Co-Sign Detail Recorded Client Recorded Date Recorded By Document 12/20/19 13:50 [id number] 12/20/19 13:51 12/20/19 13:50 Wound Center Nurse 1 [Ulcer Assessment] #1- L LATERAL ANKLE -Combined with other wound No -Current Size (cm) - Length 0.1 -Current Size (cm) - Width 0.2 -Current Size (cm) - Depth 0.2 -Total Square Cm 0.02 -Photo Taken No -Epithelialization Medium 34-66% -Tunneling No -Undermining/Tunneling No -Circular Undermining No -Exudate Amt Small -Exudate Type Serosanguineous -Wound Margin Flat & Intact -Granulation Amt Small (1-33%) -Granulation Quality [place] -Slough/Fibrin Yes -Necrosis Amt Medium (34-66%) -Necrotic Tissue Type Adherent Slough -Structure Exposed N/A -Texture (Elisa-wound Skin Appearance) Assessed, Scarring -Moisture (Elisa-wound Skin Appearance Assessed,Dry/ ) Scaly -Color (Elisa-wound Skin Appearance) Assessed -Temperature (Elisa-wound Skin No Abnormality Appearance) (Pt Warm) -Tenderness on Palpation (Elisa-wound No Skin Appearance) -Ulcer Cleansing Rinsed/ Irrigated with Saline -Foul Odor after Cleansing No -Anesthetic Used 4% Lidocaine Solution [Edema Assessment] -Lower Limb Edema Present No WC - Nurse 2 - General Ulcer CM Notes Start: 12/19/19 19:42 Freq: Status: Active Protocol: Activity Type Activity Date Activity User E-Sign Co-Sign Detail Recorded Client Recorded Date Recorded By Document 12/20/19 14:01 [id number] 12/20/19 14:11 YU 12/20/19 14:01 Wound Center Nurse 2 [Procedure/Treatment] #1- L LATERAL ANKLE -Time 14:01 -Correct Patient Yes -Correct Side, Site, Position Yes -Correct Procedure Yes -Procedure Performed Yes -Type of Procedure Debridement -Clinical Debridement Subcutaneous -Tissue Removed Subcutaneous -Post Debridement (cm) - Length 0.2 -Post Debridement (cm) - Width 0.2 -Post Debridement (cm) - Depth 0.9 -Total Square (Post) (cm) 0.04 -Area of Debridement (cm) - Length 0.2 -Area of Debridement (cm) - Width 0.2 -Total Square (Area) (cm) 0.04 -Tunneling No -Undermining/Tunneling No -Circular Undermining No -Wound/Ulcer Outcome Not Healed -Ulcer Cleansing Rinsed/ Irrigated with Saline -Foul Odor after Cleansing No -Bioengineered Tissue No -Bleeding Controlled with Pressure -Offloading No -Debridement - Subq, 1st 20sq cm Yes [See Physician Procedure note for Specifics] Pain Scale: 0-10 Numeric [Pain] -Is Patient Pain Free? Yes WC - Nurse 3 - General Ulcer D/C NN Start: 12/19/19 19:42 Freq: Status: Active Protocol: Activity Type Activity Date Activity User E-Sign Co-Sign Detail Recorded Client Recorded Date Recorded By Document 12/20/19 14:22 ANNETTE [id number] 12/20/19 14:24 DL 12/20/19 14:22 Wound Care Nurse 3 [Wound Dressing] #1- L LATERAL ANKLE -Ulcer Cleansing Rinsed/ Irrigated with Saline -Foul Odor after Cleansing No -Primary Dressing Applied C Hydrogel ($) -Primary Dressing Covered/Secured Dry Gauze, with Secured with Tape [Post Procedure Tolerated] -Treatment Response Procedure Tolerated Well Pain Scale: 0-10 Numeric [Pain] -Is Patient Pain Free? Yes WC - Visit Discharge [Visit Discharge Information] -Discharge Condition Stable -Ambulatory Status Ambulatory -Transportation Private Auto -Notes: Pt didnt wear tubigrip to appt today, refusing tubigrip in clinic to go home. states will apply at home. Musculoskeletal: No Tenderness to Palpation of Joints or Extremities, Muscle Wasting Neurological: Sensory exam intact to light touch and pain Psych/Mental Status: Normal Affect, Appropriate Debridement Note Post-Debridement Measurements/Treatment - Nurse 2 - General Ulcer CM Notes Start: 12/19/19 19:42 Freq: Status: Active Protocol: Activity Type Activity Date Activity User E-Sign Co-Sign Detail Recorded Client Recorded Date Recorded By Document 12/20/19 14:01 [id number] 12/20/19 14:11 12/20/19 14:01 Wound Center Nurse 2 #1- L LATERAL ANKLE -Time 14:01 -Correct Patient Yes -Correct Side, Site, Position Yes -Correct Procedure Yes -Procedure Performed Yes -Type of Procedure Debridement -Clinical Debridement Subcutaneous -Tissue Removed Subcutaneous -Post Debridement (cm) - Length 0.2 -Post Debridement (cm) - Width 0.2 -Post Debridement (cm) - Depth 0.9 -Total Square (Post) (cm) 0.04 -Area of Debridement (cm) - Length 0.2 -Area of Debridement (cm) - Width 0.2 -Total Square (Area) (cm) 0.04 -Tunneling No -Undermining/Tunneling No -Circular Undermining No -Wound/Ulcer Outcome Not Healed -Ulcer Cleansing Rinsed/ Irrigated with Saline -Foul Odor after Cleansing No -Bioengineered Tissue No -Bleeding Controlled with Pressure -Offloading No -Debridement - Subq, 1st 20sq cm Yes Pain Scale: 0-10 Numeric Is Patient Pain Free? Yes - Nurse 3 - General Ulcer D/C NN Start: 12/19/19 19:42 Freq: Status: Active Protocol: Activity Type Activity Date Activity User E-Sign Co-Sign Detail Recorded Client Recorded Date Recorded By Document 12/20/19 14:22 DL [id number] 12/20/19 14:24 DL 12/20/19 14:22 Wound Care Nurse 3 #1- L LATERAL ANKLE -Ulcer Cleansing Rinsed/ Irrigated with Saline -Foul Odor after Cleansing No -Primary Dressing Applied C Hydrogel ($) -Primary Dressing Covered/Secured with Dry Gauze, Secured with Tape Treatment Response Procedure Tolerated Well Pain Scale: 0-10 Numeric Is Patient Pain Free? Yes WC - Visit Discharge Discharge Condition Stable Ambulatory Status Ambulatory Transportation Private Auto Notes: Pt didnt wear tubigrip to appt today, refusing tubigrip in clinic to go home. states will apply at home. Wound debrided: lateral leg Laterality: Left Type of Debridement: Excisional debridement Anesthesia Used: 5% Lidocaine Gel Depth: in the subcutaneous layer Percentage of wound debrided: 100 Instrument Used: - - 1 mm curette Tissue Removed: fibrous, devitalized subcutaneous, biofilm, slough Severity: Fat Layer Exposed Amount of bleeding with debridement: Mild Bleeding Controlled with: Pressure Patient tolerated procedure well Assessment/Plan Active Problems (Last Reviewed 10/18/19 @ 11:27 by Gianna Christianson) Rheumatoid arthritis (Chronic) Non-pressure chronic ulcer of unspecified part of left lower leg with fat layer exposed (Chronic) Delayed wound healing (Chronic) Contamination (Acute) Assessment: Left lower lateral leg ulcer, no acute signs of local infection. Contamination noted with recent culture. 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 Lower extremity edema potentially secondary to venous insufficiency. Peripheral vascular disease work-up in process. Malnutrition suspected. History of osteopenia. Rheumatoid arthritis. Delayed wound healing Plan: I reviewed and discussed her plan. Her case was also discussed with her referring physician, Dr. Rios. Subcutaneous excisional debridement was performed as noted in the clinical panel. To change the dressing daily with Aquacel Ag. Additional advanced wound healing product such as Regranex will be considered in the future pending her diagnostic data results and clinical progression. Prior authorization will be initiated. She has had significant delays in healing and this advanced product with additional growth factor is medically necessary for limb salvage. Over 1 month of wound care treatment is on file at the wound healing center as well as the foot and ankle center. To avoid soaking or swimming activities. To cross train such as a stationary bike or resistance training with immobilziation boot in place to reduce ulcer site tension. To offload with pressure reduction with Tubigrip. To elevate. A prescription for donut offloading pillow was provided to avoid laying on this site while sleeping. She decided she does not want to proceed forward with this device. We discussed use of a cam walker immobilization device to reduce tension on the skin on her ankles moving. It is noted that she had a prior fall and injury while using a boot and she is very apprehensive about this. She will hold off on wearing this on a routine basis at this time which is understandable. Her underlying infection versus contamination work-up including taking a wound culture post debridement and irrigation today for aerobic, anaerobic, and MRSA PCR. Anaerobic cocci bacteria was identified. To wash with medical grade antimicrobial Hibiclens wash daily. If continued delays continue an antibiotic and potential infectious disease repeat referral will be considered. She does not have any known drug allergies. Is noted she already had a course of long-term antibiotics in the past for this condition. I recommended updated x-rays and this was ordered. 3 views of the ankle were reviewed and she still has an apparent delayed or nonhealing fibular fracture which is far proximal to the ulcer and is not in direct communication with this. Her intramedullary fibular eileen is intact. There is no apparent distal screw loosening. I suspect the ulcer is directly lined up with 1 of the holes in the fibular eileen we are the more recent syndesmosis button was removed due to the depth I was able to probe with a curette today clinically. There is no soft tissue emphysema or foreign body, or aggressive osseous destruction noted. There is no syndesmosis gapping and the overlap of the fibula and tibia remain intact. The also communication with deeper tissue is suspected with piecing information gathered from her clinical exam and x-ray may indicate deeper syndesmosis joint fluid and micromotion may be contributing to this challenging case. I reviewed her recent lab work from 11-08-2019 from [facility] which did not have leukocytosis or gross abnormalities with her BMP. Her albumin level 3.5. Additional lab work-up was recommended follow CBC and inflammatory markers such as ESR and C-reactive protein. Due to the chronicity of this wound I recommend noninvasive arterial vascular studies even though she has palpable pulses. This order was provided and she is scheduled this upcoming Wednesday. I also recommend screening her for venous insufficiency with a venous Doppler with reflux evaluation. We discussed the importance of proper nutrition and healing. She is given nutritional supplements of Power. We discussed the importance of eating a variety of fresh fruits and vegetables and obtaining adequate protein in her diet. She will consider a nutritional referral in the future. It is noted that she has rheumatoid arthritis and some of her medications are likely contributing to her delayed healing. I have reviewed the case with her physician in private practice, Dr. Serra via phone. She was advised to hold her Orencia which is an IV infusion she obtains once a month. She was advised it is okay to continue with methotrexate and her folic acid because these are not suspected to interfere with wound healing. We also discussed future surgical intervention options if she continues to fail conservative care. We discussed excision with rotational flap and potential advanced wound healing product application. Pending her infection and contamination screening process, additional biopsies hardware removal etc. can also be considered. At this time I recommend proceeding with a conservative comprehensive wound healing plan. I answered all of her questions. She was advised to return to clinic in 1 week. . [id number]: Reviewed today -medication and allergy reconciliation process was completed. Reviewed 12-13-2019 -she is a current non-smoker. Her pneumococcal and influenza vaccinations are noted. She has a fall history with injury of over 2 times and I recommended exercise and safety precautions to prevent this in the future. This was discussed in detail. Her blood pressure was elevated and noted at 141/76. To follow-up with primary care physician. Diet and activity recommendations were reviewed.
--- NOTE | 2019-12-22 10:01 | ART_ITS ---
Reason For Study: PVD Procedure A bilateral lower extremity continuous wave Doppler with analog waveform analysis,segmental pressures,and ankle brachial indexes without exercise. Left Segmental Pressures Left brachial= 152mmHg. Left posterior tibial artery = 188mmHg. Left dorsalis pedis artery = 205mmHg. Left digit = 78 mmHg. The left dorsalis pedis waveforms are triphasic. The left posterior tibial artery waveforms are triphasic. Right Segmental Pressures Right posterior tibial artery = 190mmHg. Right dorsalis pedis artery = 191mmHg. Right digit = 55 mmHg. The right dorsalis pedis waveforms are triphasic. The right posterior tibial artery waveforms are triphasic. Indices The right ankle brachial index by the dorsalis pedis is 1.26. The right ankle brachial index by the posterior tibial artery is 1.25. The right digital-brachial index is 0.36. The left ankle brachial index by the dorsalis pedis is 1.35. The left ankle brachial index by the posterior tibial artery is 1.24. The left digital-brachial index is 0.51. Interpretation Summary Triphasic Doppler waveforms are noted at ankle level bilaterally. Pulse-volume recording waveform amplitudes are diminished at digital level bilaterally, but satisfactory at all other levels bilaterally. Resting ankle-brachial indices are normal bilaterally. The right digital-brachial index is moderately diminished. The left digital-brachial index is mildly diminished. Arterial flow appears to be normal at ankle level bilaterally. There is evidence of moderate, distal, small-vessel arterial occlusive disease at digital level on the right. There is evidence of mild, distal, small-vessel arterial occlusive disease at digital level on the left. Ordering Physician: Mable Rosado Referring Physician: Teagan Hall M.D. Performed By: Francesca Monterroso RVT and Student
--- NOTE | 2019-12-22 10:01 | VDLE_ITS ---
Reason For Study: Edema RIGHT LEFT CFV is compressible, spontaneous, phasic, CFV is compressible, spontaneous, phasic, competent and demonstrates normal competent, and demonstrates normal augmentation. augmentation. FV is compressible, spontaneous, phasic, FV is compressible, spontaneous, phasic, competent and demonstrates normal competent and demonstrates normal augmentation. augmentation. POP V is compressible, spontaneous, phasic, POP V is compressible, spontaneous, phasic, competent and demonstrates normal competent and demonstrates normal augmentation. augmentation. T/P Trunk is compressible. T/P Trunk is compressible. PTV is compressible. PTV is compressible. RT PerV is compressible. LT PerV is compressible. SFJ is competent and measures 0.59 x 0.68 cm. SFJ is competent and measures 0.63 x 0.69 cm. GSV proximal thigh measures 0.34 x 0.34 cm. GSV proximal thigh measures 0.38 x 0.40 cm. GSV at knee measures 0.25 x 0.24 cm. GSV at knee measures 0.30 x 0.29 cm. GSV is competent throughout. GSV is competent throughout. SSV at junction is competent and measures SSV at junction is competent and measures 0.15 x 0.17 cm. 0.13 x 0.14 cm. Procedure Exam performed in department. A preliminary report was called and/or faxed to . Interpretation Summary Deep veins of the lower extremities are bilaterally patent and compressible segmentally. There is no evidence of deep vein thrombosis on either side. Valvular competence appears intact within the proximal deep venous systems bilaterally. The great saphenous veins appear bilaterally patent and compressible segmentally. Sapheno-femoral junctions are bilaterally competent . Valvular competence appears to be intact segmentally within the great saphenous veins bilaterally. Small saphenous veins are patent and competent bilaterally. Ordering Physician: Mable Rosado Referring Physician: Teagan Hall M.D. Performed By: Francesca Monterroso RVT
[2019-12-27 14:12] VITALS: BP 152/61; PULSE 85; RESP 20; TEMP 35.8; BMI 22.7
--- NOTE | 2019-12-27 16:23 | PCM.WC.PN ---
(1) Non-pressure chronic ulcer of unspecified part of left lower leg with fat layer exposed Status: Chronic Current Visit: Yes Code(s): L97.922 - Non-pressure chronic ulcer of unspecified part of left lower leg with fat layer exposed (2) Other specified peripheral vascular diseases Status: Ruled-out Current Visit: Yes Code(s): I73.89 - Other specified peripheral vascular diseases (3) Delayed wound healing Status: Chronic Current Visit: Yes Code(s): T14.8XXD - Other injury of unspecified body region, subsequent encounter (4) Venous insufficiency (chronic) (peripheral) Status: Ruled-out Current Visit: Yes Code(s): I87.2 - Venous insufficiency (chronic) (peripheral) (5) Rheumatoid arthritis Status: Chronic Current Visit: Yes Code(s): M06.9 - Rheumatoid arthritis, unspecified (6) 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 Status: Suspected Current Visit: Yes Qualifiers: Encounter type: subsequent encounter Qualified Code(s): T84.7XXD - Infection and inflammatory reaction due to other internal orthopedic prosthetic devices, implants and grafts, subsequent encounter Code(s): T84.7XXA - Infection and inflammatory reaction due to other internal orthopedic prosthetic devices, implants and grafts, initial encounter (7) Contamination Status: Acute Current Visit: Yes Type of Wound Date of Service: 12/27/19 Chief Complaint: Left leg ulcer History of Wound: This 84-year-old female presents to the wound healing center for delayed healing of her left lateral lower leg. She has been initial history of trimalleolus left ankle fracture s/p open reduction internal fixation by Dr. Hernandez in [place]. Patient subsequently developed painful hardware, nonunion and fibular fracture site with possible underlying infection. She has elected to proceed forward with removal of the painful retained hardware, incision and drainage with debridement, fibular IM eileen placement, and placement of grafting, also bone marrow aspiration and placement of concentrated bone marrow aspirate at the nonunion site. This was performed by Dr. Rios at [facility] on 10-28-2018. She also subsequently had irritation with 1 of her suture buttons from the syndesmosis tight rope and this was removed in clinic with Dr. Rios. She has been changing her dressing with hydrogel. She likes to swim and has been avoiding this activity. She denies current fever, chill, nausea, vomiting. She denies new or recent injuries. She has rheumatoid arthritis and is treated by Dr. Howard. She plans to hold her Orencia medication. She had her venous and arterial studies completed and the results were reviewed via phone. She relates she is still considering if she wants to proceed forward with Regranex. She has washed her limb with antimicrobial medical grade Hibiclens soap this past week. Progress of Wound: stable - Physical Exam Vital Signs Temp Pulse Resp BP 96.5 F L 85 20 H 152/61 H 12/27/19 14:12 12/27/19 14:12 12/27/19 14:12 12/27/19 14:12 General: Alert, Oriented x3, Cooperative, No apparent distress HEENT: Atraumatic Extremities: Capillary Refill Less than 3 Seconds, No Calf Tenderness - No bogginess or fluctuance on palpation. The compartments remain soft., Diminished Peripheral Pulses, Edema Skin: Ulcer/ Wound - No purulence, erythema, streaking, odor, infection. Elisa-ulcer site inflammation has resolved. Her skin is very hairless and atrophic. Her previous cicatrix from surgical intervention is noted. There is still deeper probing noted. There is only serous mild drainage noted Wound Measurements and Assessment WC - Nurse 1 - General Ulcer Measurement Start: 12/13/19 15:11 Freq: Status: Active Protocol: Activity Type Activity Date Activity User E-Sign Co-Sign Detail Recorded Client Recorded Date Recorded By Document 12/27/19 14:12 DL [id number] 12/27/19 14:18 DL 12/27/19 14:12 Wound Center Nurse 1 [Ulcer Assessment] #1- L LATERAL ANKLE -Current Size (cm) - Length 0.1 -Current Size (cm) - Width 0.1 -Current Size (cm) - Depth 0.1 -Total Square Cm 0.01 -Photo Taken No -Exudate Amt None Present -Wound Margin Flat & Intact -Granulation Amt Small (1-33%) -Granulation Quality [place] -Necrosis Amt None Present (0 %) -Structure Exposed N/A -Texture (Elisa-wound Skin Appearance) Scarring -Moisture (Elisa-wound Skin Appearance No Abnormality ) -Color (Elisa-wound Skin Appearance) No Abnormality -Temperature (Elisa-wound Skin No Abnormality Appearance) (Pt Warm) -Tenderness on Palpation (Elisa-wound No Skin Appearance) -Ulcer Cleansing Rinsed/ Irrigated with Saline -Foul Odor after Cleansing No -Anesthetic Used 4% Lidocaine Solution [Edema Assessment] -Right Calf (cm) 33 -Right Ankle (cm) 21 - Nurse 2 - General Ulcer CM Notes Start: 12/19/19 19:42 Freq: Status: Active Protocol: Activity Type Activity Date Activity User E-Sign Co-Sign Detail Recorded Client Recorded Date Recorded By Document 12/27/19 14:42 [id number] 12/27/19 14:45 12/27/19 14:42 Wound Center Nurse 2 [Procedure/Treatment] #1- L LATERAL ANKLE -Time 14:44 -Correct Patient Yes -Correct Side, Site, Position Yes -Correct Procedure Yes -Procedure Performed Yes -Type of Procedure Debridement -Clinical Debridement Subcutaneous -Tissue Removed Subcutaneous -Post Debridement (cm) - Length 0.1 -Post Debridement (cm) - Width 0.1 -Post Debridement (cm) - Depth 0.2 -Total Square (Post) (cm) 0.01 -Area of Debridement (cm) - Length 0.1 -Area of Debridement (cm) - Width 0.1 -Total Square (Area) (cm) 0.01 -Tunneling No -Undermining/Tunneling No -Circular Undermining No -Wound/Ulcer Outcome Not Healed -Ulcer Cleansing Rinsed/ Irrigated with Saline -Foul Odor after Cleansing No -Bioengineered Tissue No -Bleeding Controlled with Pressure -Offloading No -Treatment Response Procedure Tolerated Well -Debridement - Subq, 1st 20sq cm Yes [See Physician Procedure note for Specifics] Pain Scale: 0-10 Numeric [Pain] -Is Patient Pain Free? Yes - Nurse 3 - General Ulcer D/C NN Start: 12/19/19 19:42 Freq: Status: Active Protocol: Activity Type Activity Date Activity User E-Sign Co-Sign Detail Recorded Client Recorded Date Recorded By Document 12/27/19 15:05 RB [id number] 12/27/19 15:06 RB 12/27/19 15:05 Wound Care Nurse 3 [Wound Dressing] #1- L LATERAL ANKLE -Ulcer Cleansing Rinsed/ Irrigated with Saline -Other Dressing hydrogel -Primary Dressing Covered/Secured Dry Gauze & with Roll Gauze, Secured with Tape [Compression Applied] Left -Tubular Bandage Single Layer -Size of Tubigrip Used Size D -Size D ($) 1 [Post Procedure Tolerated] -Treatment Response Procedure Tolerated Well Pain Scale: 0-10 Numeric [Pain] -Is Patient Pain Free? Yes Teaching: Wound Center [Wound Center Education] (Items with an * have Printed Materials Available- Please identify what is given to patient under the Teaching materials given to patient and caregiver Section. Dressing Your Wound -Person Taught Patient -Teaching Method Discussion, Demonstration -Response to teaching Verbalize understanding WC - Visit Discharge [Visit Discharge Information] -Discharge Condition Stable -Ambulatory Status Ambulatory -Transportation Private Auto -Medication Reconcilliation completed No & provided to patient/care provider -Clinical Summary of Care Provided Yes Musculoskeletal: No Tenderness to Palpation of Joints or Extremities, Muscle Wasting Neurological: Sensory exam intact to light touch and pain Psych/Mental Status: Normal Affect, Appropriate Debridement Note Post-Debridement Measurements/Treatment - Nurse 2 - General Ulcer CM Notes Start: 12/19/19 19:42 Freq: Status: Active Protocol: Activity Type Activity Date Activity User E-Sign Co-Sign Detail Recorded Client Recorded Date Recorded By Document 12/20/19 14:01 [id number] 12/20/19 14:11 Document 12/27/19 14:42 [id number] 12/27/19 14:45 12/20/19 12/27/19 14:01 14:42 Wound Center Nurse 2 #1- L LATERAL ANKLE -Time 14:01 14:44 -Correct Patient Yes Yes -Correct Side, Site, Position Yes Yes -Correct Procedure Yes Yes -Procedure Performed Yes Yes -Type of Procedure Debridement Debridement -Clinical Debridement Subcutaneous Subcutaneous -Tissue Removed Subcutaneous Subcutaneous -Post Debridement (cm) - Length 0.2 0.1 -Post Debridement (cm) - Width 0.2 0.1 -Post Debridement (cm) - Depth 0.9 0.2 -Total Square (Post) (cm) 0.04 0.01 -Area of Debridement (cm) - Length 0.2 0.1 -Area of Debridement (cm) - Width 0.2 0.1 -Total Square (Area) (cm) 0.04 0.01 -Tunneling No No -Undermining/Tunneling No No -Circular Undermining No No -Wound/Ulcer Outcome Not Healed Not Healed -Ulcer Cleansing Rinsed/ Rinsed/ Irrigated with Irrigated with Saline Saline -Foul Odor after Cleansing No No -Bioengineered Tissue No No -Bleeding Controlled with Pressure Pressure -Offloading No No -Treatment Response Procedure Tolerated Well -Debridement - Subq, 1st 20sq cm Yes Yes Pain Scale: 0-10 Numeric Is Patient Pain Free? Yes Yes - Nurse 3 - General Ulcer D/C NN Start: 12/19/19 19:42 Freq: Status: Active Protocol: Activity Type Activity Date Activity User E-Sign Co-Sign Detail Recorded Client Recorded Date Recorded By Document 12/20/19 14:22 DL [id number] 12/20/19 14:24 DL Document 12/27/19 15:05 [id number] 12/27/19 15:06 RB 12/20/19 12/27/19 14:22 15:05 Wound Care Nurse 3 #1- L LATERAL ANKLE -Ulcer Cleansing Rinsed/ Rinsed/ Irrigated with Irrigated with Saline Saline -Foul Odor after Cleansing No -Primary Dressing Applied C Hydrogel ($) -Other Dressing hydrogel -Primary Dressing Covered/Secured with Dry Gauze, Dry Gauze & Secured with Roll Gauze, Tape Secured with Tape Left -Tubular Bandage Single Layer -Size of Tubigrip Used Size D -Size D ($) 1 Treatment Response Procedure Procedure Tolerated Well Tolerated Well Pain Scale: 0-10 Numeric Is Patient Pain Free? Yes Yes Teaching: Wound Center Dressing Your Wound -Person Taught Patient -Teaching Method Discussion, Demonstration -Response to teaching Verbalize understanding WC - Visit Discharge Discharge Condition Stable Stable Ambulatory Status Ambulatory Ambulatory Transportation Private Auto Private Auto Medication Reconcilliation completed & No provided to patient/care provider Clinical Summary of Care Provided Yes Notes: Pt didnt wear tubigrip to appt today, refusing tubigrip in clinic to go home. states will apply at home. Wound debrided: lateral leg Laterality: Left Type of Debridement: Excisional debridement Anesthesia Used: 5% Lidocaine Gel Depth: in the subcutaneous layer Percentage of wound debrided: 100 Instrument Used: - - 1 mm curette Tissue Removed: fibrous, devitalized subcutaneous, biofilm, slough Severity: Fat Layer Exposed Amount of bleeding with debridement: Mild Bleeding Controlled with: Pressure Patient tolerated procedure well Assessment/Plan Active Problems (Last Reviewed 10/18/19 @ 11:27 by Gianna Christianson) Rheumatoid arthritis (Chronic) Non-pressure chronic ulcer of unspecified part of left lower leg with fat layer exposed (Chronic) Delayed wound healing (Chronic) Contamination (Acute) Assessment: Left lower lateral leg ulcer, no acute signs of local infection. Contamination noted with recent culture. 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 Lower extremity edema potentially secondary to venous insufficiency. Peripheral vascular disease ruled out at this current time. Malnutrition suspected. History of osteopenia. Rheumatoid arthritis. Delayed wound healing Plan: I reviewed and discussed her plan. Subcutaneous excisional debridement was performed as noted in the clinical panel. To change the dressing daily with hydrogel. Additional advanced wound healing product such as Regranex was recommended. She initially held off due to the [id number] expense and is reconsidering this decision. An updated order was sent. Prior authorization will be reinitiated. She has had significant delays in healing and this advanced product with additional growth factor is medically necessary for limb salvage. Over 1 month of wound care treatment is on file at the wound healing center as well as the foot and ankle center. To avoid soaking or swimming activities. To cross train such as a stationary bike or resistance training with immobilziation boot in place to reduce ulcer site tension. To offload with pressure reduction with Tubigrip. To elevate. A prescription for donut offloading pillow was provided to avoid laying on this site while sleeping. She decided she does not want to proceed forward with this device. We discussed use of a cam walker immobilization device to reduce tension on the skin on her ankles moving. It is noted that she had a prior fall and injury while using a boot and she is very apprehensive about this. She will hold off on wearing this on a routine basis at this time which is understandable. Her underlying infection versus contamination work-up including taking a wound culture post debridement and irrigation today for aerobic, anaerobic, and MRSA PCR. Anaerobic cocci bacteria was identified. To wash with medical grade antimicrobial Hibiclens wash daily. She does not have any known drug allergies. Due to continued lack of complete ulcer closure I recommend a 1 to 2-week course of Augmentin. A prescription was provided today she will take 875 mg twice daily. I recommended updated x-rays and this was ordered. 3 views of the ankle were reviewed and she still has an apparent delayed or nonhealing fibular fracture which is far proximal to the ulcer and is not in direct communication with this. Her intramedullary fibular eileen is intact. There is no apparent distal screw loosening. I suspect the ulcer is directly lined up with one of the holes in the fibular eileen we are the more recent syndesmosis button was removed due to the depth I was able to probe with a curette and a recent clinical visit. There is no soft tissue emphysema or foreign body, or aggressive osseous destruction noted. There was no syndesmosis gapping and the overlap of the fibula and tibia remain intact. I reviewed her recent lab work from 11-08-2019 from [facility] which did not have leukocytosis or gross abnormalities with her BMP. Her albumin level 3.5. Additional lab work-up was recommended follow CBC and inflammatory markers such as ESR and C-reactive protein. Due to the chronicity of this wound I recommend noninvasive arterial vascular studies even though she has palpable pulses. This was reviewed. She has triphasic waveforms and her ABIs were for the most part in the normal range. There is intentionally slight elevation suggesting early calcification. If ongoing delays are noted a vascular referral be considered however there is no evidence of occlusion or critical limb ischemia warranting rapid referral at this time. I also recommend screening her for venous insufficiency with a venous Doppler with reflux evaluation. This was reviewed and her veins are not incompetent. To continue with light compression. We discussed the importance of proper nutrition and healing. She is given nutritional supplements of Power. We discussed the importance of eating a variety of fresh fruits and vegetables and obtaining adequate protein in her diet. She will consider a nutritional referral in the future. It is noted that she has rheumatoid arthritis and some of her medications are likely contributing to her delayed healing. I have reviewed the case with her fiberglass quality technician, Dr. Serra via phone. She was advised to hold her Orencia which is an IV infusion she obtains once a month. She was advised it is okay to continue with methotrexate and her folic acid because these are not suspected to interfere with wound healing. We also discussed future surgical intervention options if she continues to fail conservative care. We discussed excision with rotational flap and potential advanced wound healing product application. Pending her infection and contamination screening process, additional biopsies hardware removal etc. can also be considered. At this time I recommend proceeding with a conservative comprehensive wound healing plan. I answered all of her questions. She was advised to return to clinic in 1 week. . [employer]CRA 2020: Reviewed today -medication and allergy reconciliation process was completed. Reviewed 12-13-2019 -she is a current non-smoker. Her pneumococcal and influenza vaccinations are noted. She has a fall history with injury of over 2 times and I recommended exercise and safety precautions to prevent this in the future. This was discussed in detail. Her blood pressure was elevated and noted at 141/76. To follow-up with primary care physician. Diet and activity recommendations were reviewed.
== END 2020-01-01 23:59 ==
LOC: WC 14:00
PROVIDERS: PCP Family Medicine; Referring Provider Podiatrist; Visit Provider Podiatrist
DX: I73.89 Other specified peripheral vascular diseases (principal); I87.2 Venous insufficiency (chronic) (peripheral); L97.822 Non-pressure chronic ulcer of other part of left lower leg with fat layer exposed; M06.9 Rheumatoid arthritis, unspecified; R60.0 Localized edema; Z79.899 Other long term (current) drug therapy
CPT/HCPCS: 11042; 87070; 87075; 87205; 87640; 93923; 93970; 99213; G0463

== ENCOUNTER → 2020-01-23 14:13 | Outpatient (CLI) | payer MEDICARE, SELFPAY ==
[2020-01-17 13:04] VITALS: BMI 22.7
[2020-01-23 17:59] LABS: Absolute Lymphocyte Count 1.39 X10^3/uL (0.83-4.51); Absolute Neutrophil Count 2.4 X10^3/uL (2.0-7.7); Basophil# 0.02 X10^3/uL; Basophil% 0.5 % (0-1); Eosinophil# 0.14 X10^3/uL; Eosinophils% 3.2 % (0-5); Hematocrit 40.3 % (37-47); Lymphocyte # 1.39 X10^3/ul (4.0); Lymphocyte % 31.4 % (19-41); Mean Corp Hgb Conc 32.3 g/dL (32-36); Mean Corpuscular Hgb 30.7 pg (27.0-32.0); Mean Platelet Vol. 11.6 fl (6.2-12.0); Monocyte# 0.44 X10^3/uL; NRBC Flagged by Analyzer 0 % (0-5); Neutrophil # 2.43 X10^3/uL (2.7-7.7); Neutrophil % 54.9 % (47-70); Platelet Count 191 K/mm3 (150-450); RBC Distribution Width CV 13.4 % (11.6-14.6); RBC Distribution Width SD 46.9 fl (35.1-43.9); Red Blood Count 4.24 M/mm3 (4.2-5.4); White Blood Count 4.4 K/mm3 (4.4-11.0)
[2020-01-23 18:17] LABS: ALB/GLOB Ratio 1.2 RATIO (0.9-2.4); AST(SGOT) 19 U/L (15-37); Alanine Aminotransfer ALT/SGPT 21 U/L (13-56); Albumin, Serum 3.8 g/dL (3.2-5.0); Alkaline Phosphatase 51 U/L (45-117); Anion Gap 5 (5-15); BUN 19 mg/dL (7-18); BUN/Creat Ratio 22.8 RATIO (10-20); Calcium,Total 9.3 mg/dL (8.5-10.1); Chloride 106 mmol/L (98-107); Creatinine, Serum 0.84 mg/dL (0.55-1.02); EST Glomerular Filtration Rate 69 mL/min (>60); Est Glom Filt Rate - Afr Amer 84 mL/min (>60); Globulin 3.2 g/dL (2.2-4.2); Glucose 119 mg/dL (74-106); Potassium 4.1 mmol/L (3.5-5.1); Sodium Level 140 mmol/L (136-145)
== END ==
PROVIDERS: PCP Family Medicine; Referring Provider Internal Medicine Rheumatology; Visit Provider Internal Medicine Rheumatology
DX: M05.70 Rheumatoid arthritis with rheumatoid factor of unspecified site without organ or systems involvement (principal); M50.30 Other cervical disc degeneration, unspecified cervical region; Z79.899 Other long term (current) drug therapy; Z85.3 Personal history of malignant neoplasm of breast
CPT/HCPCS: 36415; 80053; 85025

== ENCOUNTER 2020-01-31 13:45 | Outpatient (RCR) | payer MEDICARE, SELFPAY ==
[2020-01-02 00:48] VITALS: BP 152/61; PULSE 85; RESP 20; TEMP 35.8
[2020-01-03 13:06] VITALS: BP 157/73; PULSE 88; RESP 16; TEMP 36.1; BMI 22.7
--- NOTE | 2020-01-03 22:23 | PCM.WC.PN ---
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 She has been initial history of trimalleolus left ankle fracture s/p open reduction internal fixation by Dr. Hernandez in [place]. Patient subsequently developed painful hardware, nonunion and fibular fracture site with possible underlying infection. She has elected to proceed forward with removal of the painful retained hardware, incision and drainage with debridement, fibular IM eileen placement, and placement of grafting, also bone marrow aspiration and placement of concentrated bone marrow aspirate at the nonunion site. This was performed by Dr. Rios at [facility] on 10-28-2018. She also subsequently had irritation with one of her suture buttons from the syndesmosis tight rope and this was removed in clinic with Dr. Rios. She has been changing her dressing with hydrogel. She likes to swim and has been avoiding this activity. She denies current fever, chill, nausea, vomiting. She denies new or recent injuries. She has rheumatoid arthritis and is treated by Dr. Howard. She plans to hold her Orencia medication. She had her venous and arterial studies completed and the results were reviewed via phone. She received the Regranex in the mail and has not started use yet. She would like to clarify proper use. She has washed her limb with antimicrobial medical grade Hibiclens soap this past week. Progress of Wound: improving - Physical Exam Vital Signs Temp Pulse Resp BP 97 F L 88 16 157/73 H 01/03/20 13:06 01/03/20 13:06 01/03/20 13:06 01/03/20 13:06 General: Alert, Oriented x3, Cooperative HEENT: Atraumatic Extremities: No cyanosis, Capillary Refill Less than 3 Seconds, No Calf Tenderness, Diminished Peripheral Pulses, Edema - Very mild Skin: Ulcer/ Wound - No purulence, erythema, streaking, odor, acute infection. Peripheral skin is atrophic. There is some peripheral epithelialization and the very small ulcer site is now stellate shaped. No bogginess or fluctuance on palpation Wound Measurements and Assessment WC - Nurse 1 - General Ulcer Measurement Start: 01/03/20 13:05 Freq: Status: Active Protocol: Activity Type Activity Date Activity User E-Sign Co-Sign Detail Recorded Client Recorded Date Recorded By Document 01/03/20 13:06 [facility] [id number] 01/03/20 13:10 [facility] 01/03/20 13:06 Wound Center Nurse 1 [Ulcer Assessment] #1- L LATERAL ANKLE -Combined with other wound No -Current Size (cm) - Length 0.2 -Current Size (cm) - Width 0.2 -Current Size (cm) - Depth 0.3 -Total Square Cm 0.04 -Photo Taken No -Epithelialization None Present -Tunneling No -Undermining/Tunneling No -Circular Undermining No -Exudate Amt Small -Exudate Type Serous -Wound Margin Distinct, Outline Attached -Granulation Amt Medium (34-66%) -Granulation Quality Red -Slough/Fibrin Yes -Necrosis Amt Small (1-33%) -Necrotic Tissue Type Adherent Slough -Texture (Elisa-wound Skin Appearance) Assessed, Scarring -Moisture (Elisa-wound Skin Appearance Assessed ) -Color (Elisa-wound Skin Appearance) Assessed -Temperature (Elisa-wound Skin No Abnormality Appearance) (Pt Warm) -Tenderness on Palpation (Elisa-wound No Skin Appearance) -Ulcer Cleansing Rinsed/ Irrigated with Saline -Foul Odor after Cleansing No -Anesthetic Used 5% Lidocaine Gel [Edema Assessment] -Lower Limb Edema Present Yes -Left Calf (cm) 35.6 -Left Ankle (cm) 22 WC - Nurse 2 - General Ulcer CM Notes Start: 01/03/20 13:05 Freq: Status: Active Protocol: Activity Type Activity Date Activity User E-Sign Co-Sign Detail Recorded Client Recorded Date Recorded By Document 01/03/20 13:29 [id number] 01/03/20 13:32 01/03/20 13:29 Wound Center Nurse 2 [Procedure/Treatment] #1- L LATERAL ANKLE -Time 13:30 -Correct Patient Yes -Correct Side, Site, Position Yes -Correct Procedure Yes -Procedure Performed Yes -Type of Procedure Debridement -Clinical Debridement Subcutaneous -Tissue Removed Subcutaneous -Post Debridement (cm) - Length 0.2 -Post Debridement (cm) - Width 0.2 -Post Debridement (cm) - Depth 0.2 -Total Square (Post) (cm) 0.04 -Area of Debridement (cm) - Length 0.2 -Area of Debridement (cm) - Width 0.2 -Total Square (Area) (cm) 0.04 -Tunneling No -Undermining/Tunneling No -Circular Undermining No -Wound/Ulcer Outcome Not Healed -Ulcer Cleansing Rinsed/ Irrigated with Saline -Foul Odor after Cleansing No -Bioengineered Tissue No -Bleeding Controlled with Pressure -Offloading No -Treatment Response Procedure Tolerated Well -Debridement - Subq, 1st 20sq cm Yes [See Physician Procedure note for Specifics] - Nurse 3 - General Ulcer D/C NN Start: 01/03/20 13:05 Freq: Status: Active Protocol: Activity Type Activity Date Activity User E-Sign Co-Sign Detail Recorded Client Recorded Date Recorded By Document 01/03/20 13:36 [id number] [id number] 01/03/20 13:37 01/03/20 13:36 Wound Care Nurse 3 [Wound Dressing] #1- L LATERAL ANKLE -Ulcer Cleansing Rinsed/ Irrigated with Saline -Foul Odor after Cleansing No -Other Dressing applied hydrogel -Primary Dressing Covered/Secured Dry Gauze, with Secured with Tape Pain Scale: 0-10 Numeric [Pain] -Is Patient Pain Free? Yes - Visit Discharge [Visit Discharge Information] -Discharge Condition Stable -Ambulatory Status Ambulatory -Transportation Private Auto -Medication Reconcilliation completed Yes & provided to patient/care provider -Clinical Summary of Care Provided Yes Musculoskeletal: No Tenderness to Palpation of Joints or Extremities Neurological: Sensory exam intact to light touch and pain Psych/Mental Status: Normal Affect, Appropriate Debridement Note Post-Debridement Measurements/Treatment - Nurse 2 - General Ulcer CM Notes Start: 01/03/20 13:05 Freq: Status: Active Protocol: Activity Type Activity Date Activity User E-Sign Co-Sign Detail Recorded Client Recorded Date Recorded By Document 01/03/20 13:29 [id number] 01/03/20 13:32 01/03/20 13:29 Wound Center Nurse 2 #1- L LATERAL ANKLE -Time 13:30 -Correct Patient Yes -Correct Side, Site, Position Yes -Correct Procedure Yes -Procedure Performed Yes -Type of Procedure Debridement -Clinical Debridement Subcutaneous -Tissue Removed Subcutaneous -Post Debridement (cm) - Length 0.2 -Post Debridement (cm) - Width 0.2 -Post Debridement (cm) - Depth 0.2 -Total Square (Post) (cm) 0.04 -Area of Debridement (cm) - Length 0.2 -Area of Debridement (cm) - Width 0.2 -Total Square (Area) (cm) 0.04 -Tunneling No -Undermining/Tunneling No -Circular Undermining No -Wound/Ulcer Outcome Not Healed -Ulcer Cleansing Rinsed/ Irrigated with Saline -Foul Odor after Cleansing No -Bioengineered Tissue No -Bleeding Controlled with Pressure -Offloading No -Treatment Response Procedure Tolerated Well -Debridement - Subq, 1st 20sq cm Yes - Nurse 3 - General Ulcer D/C NN Start: 01/03/20 13:05 Freq: Status: Active Protocol: Activity Type Activity Date Activity User E-Sign Co-Sign Detail Recorded Client Recorded Date Recorded By Document 01/03/20 13:36 [id number] 01/03/20 13:37 01/03/20 13:36 Wound Care Nurse 3 -Ulcer Cleansing Rinsed/ Irrigated with Saline -Foul Odor after Cleansing No -Other Dressing applied hydrogel -Primary Dressing Covered/Secured with Dry Gauze, Secured with Tape Pain Scale: 0-10 Numeric Is Patient Pain Free? Yes - Visit Discharge Discharge Condition Stable Ambulatory Status Ambulatory Transportation Private Auto Medication Reconcilliation completed & Yes provided to patient/care provider Clinical Summary of Care Provided Yes Wound debrided: latera leg Laterality: Left Type of Debridement: Excisional debridement Anesthesia Used: 5% Lidocaine Gel Depth: in the subcutaneous layer Percentage of wound debrided: 100 Instrument Used: - - 1 mm curette Tissue Removed: fibrous, devitalized subcutaneous, biofilm, slough Severity: Fat Layer Exposed Amount of bleeding with debridement: Mild Bleeding Controlled with: Pressure Patient tolerated procedure well Assessment/Plan Assessment: Left lower lateral leg ulcer, no acute signs of local infection. Contamination noted with recent culture. 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 Lower extremity edema potentially secondary to venous insufficiency. Peripheral vascular disease ruled out at this current time. Malnutrition suspected. History of osteopenia. Rheumatoid arthritis. Delayed wound healing Plan: I reviewed and discussed her plan. Subcutaneous excisional debridement was performed as noted in the clinical panel. To change the dressing daily with regranex, growth factor enriched gel. She was advised to change this once every 24 hours. To discontinue medical grade antimicrobial Hibiclens soap. To transition into Dial soap and water cleansing protocol prior to Regranex application. She has had significant delays in healing and this advanced product with additional growth factor is medically necessary for limb salvage. Over 1 month of wound care treatment is on file at the wound healing center as well as the foot and ankle center. To avoid soaking or swimming activities. To cross train such as a stationary bike or resistance training with immobilziation boot in place to reduce ulcer site tension. To offload with pressure reduction with Tubigrip. To elevate. A prescription for donut offloading pillow was provided to avoid laying on this site while sleeping. She decided she does not want to proceed forward with this device. We discussed use of a cam walker immobilization device to reduce tension on the skin on her ankles moving. It is noted that she had a prior fall and injury while using a boot and she is very apprehensive about this. She will hold off on wearing this on a routine basis at this time which is understandable. Her underlying infection versus contamination work-up including taking a wound culture post debridement and irrigation today for aerobic, anaerobic, and MRSA PCR. Anaerobic cocci bacteria was identified. She does not have any known drug allergies. Due to continued lack of complete ulcer closure I recommend a 1 to 2-week course of Augmentin. A refill prescription was provided today she will take 875 mg twice daily. I recommended updated x-rays and this was ordered. Three views of the ankle were reviewed and she still has an apparent delayed or nonhealing fibular fracture which is far proximal to the ulcer and is not in direct communication with this. Her intramedullary fibular eileen is intact. There is no apparent distal screw loosening. I suspect the ulcer is directly lined up with one of the holes in the fibular eileen we are the more recent syndesmosis button was removed due to the depth I was able to probe with a curette and a recent clinical visit. There is no soft tissue emphysema or foreign body, or aggressive osseous destruction noted. There was no syndesmosis gapping and the overlap of the fibula and tibia remain intact. I reviewed her recent lab work from 11-08-2019 from [facility] which did not have leukocytosis or gross abnormalities with her BMP. Her albumin level 3.5. Additional lab work-up was recommended follow CBC and inflammatory markers such as ESR and C-reactive protein. Due to the chronicity of this wound I recommend noninvasive arterial vascular studies even though she has palpable pulses. This was reviewed. She has triphasic waveforms and her ABIs were for the most part in the normal range. There is intentionally slight elevation suggesting early calcification. If ongoing delays are noted a vascular referral be considered however there is no evidence of occlusion or critical limb ischemia warranting rapid referral at this time. I also recommend screening her for venous insufficiency with a venous Doppler with reflux evaluation. This was reviewed and her veins are not incompetent. To continue with light compression. We discussed the importance of proper nutrition and healing. She is given nutritional supplements of Power. We discussed the importance of eating a variety of fresh fruits and vegetables and obtaining adequate protein in her diet. She will consider a nutritional referral in the future. It is noted that she has rheumatoid arthritis and some of her medications are likely contributing to her delayed healing. I have reviewed the case with her trade promotion analyst, Dr. Serra via phone. She was advised to hold her Orencia which is an IV infusion she obtains once a month. She was advised it is okay to continue with methotrexate and her folic acid because these are not suspected to interfere with wound healing. We also discussed future surgical intervention options if she continues to fail conservative care. We discussed excision with rotational flap and potential advanced wound healing product application. Pending her infection and contamination screening process, additional biopsies hardware removal etc. can also be considered. At this time I recommend proceeding with a conservative comprehensive wound healing plan. I answered all of her questions. She was advised to return to clinic in 1 week. . [employer]CRA 2019: Reviewed today -medication and allergy reconciliation process was completed. Reviewed 12-13-2019 -she is a current non-smoker. Her pneumococcal and influenza vaccinations are noted. She has a fall history with injury of over 2 times and I recommended exercise and safety precautions to prevent this in the future. This was discussed in detail. Her blood pressure was elevated and noted at 141/76. To follow-up with primary care physician. Diet and activity recommendations were reviewed.
[2020-01-17 13:04] VITALS: BP 163/88; PULSE 75; RESP 18; TEMP 36.1; BMI 22.7
--- NOTE | 2020-01-17 14:53 | PN.PCM_ITS ---
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 She has been initial history of trimalleolus left ankle fracture s/p open reduction internal fixation by Dr. Hernandez in [place]. Patient subsequently developed painful hardware, nonunion and fibular fracture site with possible underlying infection. She has elected to proceed forward with removal of the painful retained hardware, incision and drainage with debridement, fibular IM eileen placement, and placement of grafting, also bone marrow aspiration and placement of concentrated bone marrow aspirate at the nonunion site. This was performed by Dr. Rios at [facility] on 10-28-2018. She also subsequently had irritation with one of her suture buttons from the syndesmosis tight rope and this was removed in clinic with Dr. Rios. She has been changing her dressing with regranex. She likes to swim and has been avoiding this activity. She denies current fever, chill, nausea, vomiting. She denies new or recent injuries. She has rheumatoid arthritis and is treated by Dr. Howard. She has held her Orencia medication. She also washes her leg daily and wears a Tubigrip for edema management. Progress of Wound: improving - Physical Exam Vital Signs Temp Pulse Resp BP 97 F L 75 18 163/88 H 01/17/20 13:04 01/17/20 13:04 01/17/20 13:01/17/20 13:04 General: Alert, Oriented x3, Cooperative Extremities: No cyanosis, Capillary Refill Less than 3 Seconds, No Calf Tenderness, Diminished Peripheral Pulses, Edema Skin: Ulcer/ Wound - No purulence, erythema, string, odor, infection. Skin is atrophic and hairless. There is peripheral epithelialization noted. Wound Measurements and Assessment WC - Nurse 1 - General Ulcer Measurement Start: 01/03/20 13:05 Freq: Status: Active Protocol: Activity Type Activity Date Activity User E-Sign Co-Sign Detail Recorded Client Recorded Date Recorded By Document 01/17/20 13:04 [email or web address] [id number] 01/17/20 13:08 DL 01/17/20 13:04 Wound Center Nurse 1 [Ulcer Assessment] #1- L LATERAL ANKLE -Current Size (cm) - Length 0.1 -Current Size (cm) - Width 0.1 -Current Size (cm) - Depth 0.1 -Total Square Cm 0.01 -Photo Taken Yes -Exudate Amt None Present -Wound Margin Flat & Intact -Granulation Amt Large (67-100%) -Granulation Quality Kinross -Necrosis Amt None Present (0 %) -Structure Exposed N/A -Texture (Elisa-wound Skin Appearance) Scarring -Moisture (Elisa-wound Skin Appearance No Abnormality ) -Color (Elisa-wound Skin Appearance) No Abnormality -Temperature (Elisa-wound Skin No Abnormality Appearance) (Pt Warm) -Tenderness on Palpation (Elisa-wound No Skin Appearance) -Ulcer Cleansing Rinsed/ Irrigated with Saline -Foul Odor after Cleansing No -Anesthetic Used 4% Lidocaine Solution [Edema Assessment] -Left Calf (cm) 33 -Left Ankle (cm) 20.7 WC - Nurse 2 - General Ulcer CM Notes Start: 01/03/20 13:05 Freq: Status: Active Protocol: Activity Type Activity Date Activity User E-Sign Co-Sign Detail Recorded Client Recorded Date Recorded By Document 01/17/20 13:19 [id number] 01/17/20 13:19 01/17/20 13:19 Wound Center Nurse 2 [Procedure/Treatment] #1- L LATERAL ANKLE -Correct Patient No -Correct Side, Site, Position No -Correct Procedure No -Procedure Performed No -Tunneling No -Undermining/Tunneling No -Circular Undermining No -Wound/Ulcer Outcome Not Healed [See Physician Procedure note for Specifics] Pain Scale: 0-10 Numeric [Pain] -Is Patient Pain Free? Yes FAREED - Nurse 3 - General Ulcer D/C NN Start: 01/03/20 13:05 Freq: Status: Active Protocol: Activity Type Activity Date Activity User E-Sign Co-Sign Detail Recorded Client Recorded Date Recorded By Document 01/17/20 13:20 [id number] 01/17/20 13:20 01/17/20 13:20 Wound Care Nurse 3 [Wound Dressing] #1- L LATERAL ANKLE -Ulcer Cleansing Rinsed/ Irrigated with Saline -Foul Odor after Cleansing No -Primary Dressing Applied C Hydrogel ($) -Primary Dressing Covered/Secured Dry Gauze, with Secured with Tape Pain Scale: 0-10 Numeric [Pain] -Is Patient Pain Free? Yes - Visit Discharge [Visit Discharge Information] -Discharge Condition Stable -Ambulatory Status Ambulatory -Transportation Private Auto -Medication Reconcilliation completed Yes & provided to patient/care provider -Clinical Summary of Care Provided Yes Musculoskeletal: No Tenderness to Palpation of Joints or Extremities, Muscle Wasting Neurological: Sensory exam intact to light touch and pain, - Psych/Mental Status: Normal Affect, Appropriate Debridement Note Post-Debridement Measurements/Treatment - Nurse 2 - General Ulcer CM Notes Start: 01/03/20 13:05 Freq: Status: Active Protocol: Activity Type Activity Date Activity User E-Sign Co-Sign Detail Recorded Client Recorded Date Recorded By Document 01/03/20 13:29 [id number] 01/03/20 13:32 Document 01/17/20 13:19 [id number] 01/17/20 13:19 01/03/20 01/17/20 13:29 13:19 Wound Center Nurse 2 #1- L LATERAL ANKLE -Time 13:30 -Correct Patient Yes No -Correct Side, Site, Position Yes No -Correct Procedure Yes No -Procedure Performed Yes No -Type of Procedure Debridement -Clinical Debridement Subcutaneous -Tissue Removed Subcutaneous -Post Debridement (cm) - Length 0.2 -Post Debridement (cm) - Width 0.2 -Post Debridement (cm) - Depth 0.2 -Total Square (Post) (cm) 0.04 -Area of Debridement (cm) - Length 0.2 -Area of Debridement (cm) - Width 0.2 -Total Square (Area) (cm) 0.04 -Tunneling No No -Undermining/Tunneling No No -Circular Undermining No No -Wound/Ulcer Outcome Not Healed Not Healed -Ulcer Cleansing Rinsed/ Irrigated with Saline -Foul Odor after Cleansing No -Bioengineered Tissue No -Bleeding Controlled with Pressure -Offloading No -Treatment Response Procedure Tolerated Well -Debridement - Subq, 1st 20sq cm Yes Pain Scale: 0-10 Numeric Is Patient Pain Free? Yes - Nurse 3 - General Ulcer D/C NN Start: 01/03/20 13:05 Freq: Status: Active Protocol: Activity Type Activity Date Activity User E-Sign Co-Sign Detail Recorded Client Recorded Date Recorded By Document 01/03/20 13:36 [id number] 01/03/20 13:37 Document 01/17/20 13:20 [id number] 01/17/20 13:20 01/03/20 01/17/20 13:36 13:20 Wound Care Nurse 3 #1- L LATERAL ANKLE -Ulcer Cleansing Rinsed/ Rinsed/ Irrigated with Irrigated with Saline Saline -Foul Odor after Cleansing No No -Primary Dressing Applied C Hydrogel ($) -Other Dressing applied hydrogel -Primary Dressing Covered/Secured with Dry Gauze, Dry Gauze, Secured with Secured with Tape Tape Pain Scale: 0-10 Numeric Is Patient Pain Free? Yes Yes - Visit Discharge Discharge Condition Stable Stable Ambulatory Status Ambulatory Ambulatory Transportation Private Auto Private Auto Medication Reconcilliation completed & Yes Yes provided to patient/care provider Clinical Summary of Care Provided Yes Yes No debridement was completed today Assessment/Plan Assessment: Left lower lateral leg ulcer, no acute signs of local infection- improving quality. Contamination noted with recent culture. 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 Lower extremity edema potentially secondary to venous insufficiency. Peripheral vascular disease ruled out at this current time. Malnutrition suspected. History of osteopenia. Rheumatoid arthritis. Delayed wound healing Plan: I reviewed and discussed her plan. She has improvement noted and excisional debridement was not performed today. To change the dressing daily with regranex, growth factor enriched gel. She was advised to change this once every 24 hours. To discontinue medical grade antimicrobial Hibiclens soap. To continue Dial soap and water cleansing protocol prior to Regranex application. She has had significant delays in healing and this advanced product with additional growth factor is medically necessary for limb salvage. To cross train such as a stationary bike or resistance training with immobilziation boot in place to reduce ulcer site tension. To offload with pressure reduction with Tubigrip. To elevate. A prescription for donut offloading pillow was provided to avoid laying on this site while sleeping. She decided she does not want to proceed forward with this device. We discussed use of a cam walker immobilization device to reduce tension on the skin on her ankles moving. It is noted that she had a prior fall and injury while using a boot and she is very apprehensive about this. She will hold off on wearing this on a routine basis at this time which is understandable. Her underlying infection versus contamination work-up including taking a wound culture post debridement and irrigation today for aerobic, anaerobic, and MRSA PCR. Anaerobic cocci bacteria was identified. She does not have any known drug allergies. Due to continued lack of complete ulcer closure I recommend a 2-week course of Augmentin. This is been completed without known side effects. I recommended updated x-rays and this was ordered. Three views of the ankle were reviewed and she still has an apparent delayed or nonhealing fibular fracture which is far proximal to the ulcer and is not in direct communication with this. Her intramedullary fibular eileen is intact. There is no apparent distal screw loosening. I suspect the ulcer is directly lined up with one of the holes in the fibular eileen we are the more recent syndesmosis button was removed due to the depth I was able to probe with a curette and a recent clinical visit. There is no soft tissue emphysema or foreign body, or aggressive osseous destruction noted. There was no syndesmosis gapping and the overlap of the fibula and tibia remain intact. I reviewed her recent lab work from 11-08-2019 from [facility] which did not have leukocytosis or gross abnormalities with her BMP. Her albumin level 3.5. Additional lab work-up was recommended follow CBC and inflammatory markers such as ESR and C-reactive protein. Due to the chronicity of this wound I recommend noninvasive arterial vascular studies even though she has palpable pulses. This was reviewed. She has triphasic waveforms and her ABIs were for the most part in the normal range. There is intentionally slight elevation suggesting early calcification. If ongoing delays are noted a vascular referral be considered however there is no evidence of occlusion or critical limb ischemia warranting rapid referral at this time. I also recommend screening her for venous insufficiency with a venous Doppler with reflux evaluation. This was reviewed and her veins are not incompetent. To continue with light compression. We discussed the importance of proper nutrition and healing. She is given nutritional supplements of Power. We discussed the importance of eating a variety of fresh fruits and vegetables and obtaining adequate protein in her diet. She will consider a nutritional referral in the future. It is noted that she has rheumatoid arthritis and some of her medications are likely contributing to her delayed healing. I have reviewed the case with her masseur/masseuse, Dr. Serra via phone. She was advised to hold her Orencia which is an IV infusion she obtains once a month. She was advised it is okay to continue with methotrexate and her folic acid because these are not suspected to interfere with wound healing. We also discussed future surgical intervention options if she continues to fail conservative care. We discussed excision with rotational flap and potential advanced wound healing product application. Pending her infection and contamination screening process, additional biopsies hardware removal etc. can also be considered. At this time I recommend proceeding with a conservative comprehensive wound healing plan. I answered all of her questions. She was advised to return to clinic in 1 week. . [id number]: Reviewed today -medication and allergy reconciliation process was completed. Reviewed 12-13-2019 -she is a current non-smoker. Her pneumococcal and influenza vaccinations are noted. She has a fall history with injury of over 2 times and I recommended exercise and safety precautions to prevent this i n the future. This was discussed in detail. Her blood pressure was elevated and noted at 141/76. To follow-up with primary care physician. Diet and activity recommendations were reviewed.
[2020-01-24 13:04] VITALS: BP 150/81; PULSE 88; RESP 18; TEMP 36.8; BMI 22.7
[2020-01-24 13:40] VITALS: BP 145/80; PULSE 88; RESP 18
--- NOTE | 2020-01-24 14:18 | PN.PCM_ITS ---
(1) Non-pressure chronic ulcer of unspecified part of left lower leg with fat layer exposed Status: Chronic Current Visit: Yes Code(s): L97.922 - Non-pressure chronic ulcer of unspecified part of left lower leg with fat layer exposed (2) Contamination Status: Acute Current Visit: Yes (3) Delayed wound healing Status: Chronic Current Visit: Yes Code(s): T14.8XXD - Other injury of unspecified body region, subsequent encounter (4) Rheumatoid arthritis Status: Chronic Current Visit: Yes Code(s): M06.9 - Rheumatoid arthritis, unspecified Type of Wound Date of Service: 01/24/20 Chief Complaint: Left leg ulcer History of Wound: This 84-year-old female presents to the wound healing center for delayed healing of her left lateral lower leg. She has been initial history of trimalleolus left ankle fracture s/p open reduction internal fixation by Dr. Hernandez in [place]. Patient subsequently developed painful hardware, nonunion and fibular fracture site with possible underlying infection. She has elected to proceed forward with removal of the painful retained hardware, incision and drainage with debridement, fibular IM eileen placement, and placement of grafting, also bone marrow aspiration and placement of concentrated bone marrow aspirate at the nonunion site. This was performed by Dr. Rios at [facility] on 10-28-2018. She also subsequently had irritation with one of her suture buttons from the syndesmosis tight rope and this was removed in clinic with Dr. Rios. She has been changing her dressing with regranex. She likes to swim and has been avoiding this activity. She denies current fever, chill, nausea, vomiting. She denies new or recent injuries. She has rheumatoid arthritis and is treated by Dr. Howard. She has held her Orencia medication. She also washes her leg daily and wears a Tubigrip for edema management. She relates drainage had stopped and it started again yesterday. Progress of Wound: Stable - Physical Exam Vital Signs Temp Pulse Resp BP 98.2 F 88 18 145/80 H 01/24/20 13:04 01/24/20 13:40 01/24/20 13:40 01/24/20 13:40 General: Alert, Oriented x3, Cooperative, No apparent distress HEENT: Atraumatic Extremities: No cyanosis, Capillary Refill Less than 3 Seconds, No Calf Tenderness, Diminished Peripheral Pulses, Edema - Very mild Skin: Ulcer/ Wound - No purulence, erythema, streaking, odor, acute infection. There is no elisa-ulcer inflammatory soft tissue changes. There is not any deep probing, necrosis, or maceration Wound Measurements and Assessment WC - Nurse 1 - General Ulcer Measurement Start: 01/03/20 13:05 Freq: Status: Active Protocol: Activity Type Activity Date Activity User E-Sign Co-Sign Detail Recorded Client Recorded Date Recorded By Document 01/24/20 13:04 RB [id number] 01/24/20 13:07 RB 01/24/20 13:04 Wound Center Nurse 1 [Ulcer Assessment] #1- L LATERAL ANKLE -Combined with other wound No -Current Size (cm) - Length 0.1 -Current Size (cm) - Width 0.1 -Current Size (cm) - Depth 0.1 -Total Square Cm 0.01 -Tunneling No -Undermining/Tunneling No -Circular Undermining No -Exudate Amt Small -Exudate Type Serosanguineous -Wound Margin Flat & Intact -Granulation Amt Large (67-100%) -Granulation Quality [place] -Slough/Fibrin Yes -Necrosis Amt Small (1-33%) -Necrotic Tissue Type Adherent Slough -Structure Exposed N/A -Texture (Elisa-wound Skin Appearance) Assessed, Scarring -Moisture (Elisa-wound Skin Appearance Assessed ) -Color (Elisa-wound Skin Appearance) Assessed -Temperature (Elisa-wound Skin No Abnormality Appearance) (Pt Warm) -Tenderness on Palpation (Elisa-wound No Skin Appearance) -Ulcer Cleansing Wound Cleanser -Foul Odor after Cleansing No -Anesthetic Used 4% Lidocaine Solution [Edema Assessment] -Lower Limb Edema Present Yes -Left Calf (cm) 34.5 -Left Ankle (cm) 21.3 WC - Nurse 2 - General Ulcer CM Notes Start: 01/03/20 13:05 Freq: Status: Active Protocol: Activity Type Activity Date Activity User E-Sign Co-Sign Detail Recorded Client Recorded Date Recorded By Document 01/24/20 13:28 [id number] [id number] 01/24/20 13:28 01/24/20 13:28 Wound Center Nurse 2 [Procedure/Treatment] #1- L LATERAL ANKLE -Correct Patient No -Correct Side, Site, Position No -Correct Procedure No -Procedure Performed No -Tunneling No -Undermining/Tunneling No -Circular Undermining No -Wound/Ulcer Outcome Not Healed -Ulcer Cleansing Rinsed/ Irrigated with Saline -Foul Odor after Cleansing No -Bioengineered Tissue No [See Physician Procedure note for Specifics] Pain Scale: 0-10 Numeric [Pain] -Is Patient Pain Free? Yes - Nurse 3 - General Ulcer D/C NN Start: 01/03/20 13:05 Freq: Status: Active Protocol: Activity Type Activity Date Activity User E-Sign Co-Sign Detail Recorded Client Recorded Date Recorded By Document 01/24/20 13:40 RB [id number] 01/24/20 13:41 RB 01/24/20 13:40 Wound Care Nurse 3 [Wound Dressing] #1- L LATERAL ANKLE -Primary Dressing Covered/Secured Dry Gauze, with Secured with Tape [Compression Applied] Left -Stockings Yes Vital Signs [Pulse] -Pulse Rate (60-100) 88 -Pulse Location Monitor [Respirations] -Respiratory Rate (12-18) 18 -Respiratory rate source Observation [Blood Pressure] -Blood Pressure (90/60-120/80) 145/80 H -Blood Pressure Mean (mm Hg) 101 -Source Monitor -Position Sitting -Blood Pressure Location Left Arm Pain Scale: 0-10 Numeric [Pain] -Is Patient Pain Free? Yes Teaching: Wound Center [Wound Center Education] (Items with an * have Printed Materials Available- Please identify what is given to patient under the Teaching materials given to patient and caregiver Section. Dressing Your Wound -Person Taught Patient -Teaching Method Discussion, Demonstration -Response to teaching Verbalize understanding - Visit Discharge [Visit Discharge Information] -Discharge Condition Stable -Ambulatory Status Ambulatory -Transportation Private Auto -Medication Reconcilliation completed No & provided to patient/care provider -Clinical Summary of Care Provided Yes Musculoskeletal: No Tenderness to Palpation of Joints or Extremities, Muscle Wasting Neurological: Sensory exam intact to light touch and pain Psych/Mental Status: Normal Affect, Appropriate Debridement Note Post-Debridement Measurements/Treatment WC - Nurse 2 - General Ulcer CM Notes Start: 01/03/20 13:05 Freq: Status: Active Protocol: Activity Type Activity Date Activity User E-Sign Co-Sign Detail Recorded Client Recorded Date Recorded By Document 01/03/20 13:29 [id number] 01/03/20 13:32 Document 01/17/20 13:19 [id number] 01/17/20 13:19 Document 01/24/20 13:28 [id number] 01/24/20 13:28 JF 01/03/20 01/17/20 01/24/20 13:29 13:19 13:28 Wound Center Nurse 2 #1- L LATERAL ANKLE -Time 13:30 -Correct Patient Yes No No -Correct Side, Site, Position Yes No No -Correct Procedure Yes No No -Procedure Performed Yes No No -Type of Procedure Debridement -Clinical Debridement Subcutaneous -Tissue Removed Subcutaneous -Post Debridement (cm) - Length 0.2 -Post Debridement (cm) - Width 0.2 -Post Debridement (cm) - Depth 0.2 -Total Square (Post) (cm) 0.04 -Area of Debridement (cm) - Length 0.2 -Area of Debridement (cm) - Width 0.2 -Total Square (Area) (cm) 0.04 -Tunneling No No No -Undermining/Tunneling No No No -Circular Undermining No No No -Wound/Ulcer Outcome Not Healed Not Healed Not Healed -Ulcer Cleansing Rinsed/ Rinsed/ Irrigated with Irrigated with Saline Saline -Foul Odor after Cleansing No No -Bioengineered Tissue No No -Bleeding Controlled with Pressure -Offloading No -Treatment Response Procedure Tolerated Well -Debridement - Subq, 1st 20sq cm Yes Pain Scale: 0-10 Numeric Is Patient Pain Free? Yes Yes - Nurse 3 - General Ulcer D/C NN Start: 01/03/20 13:05 Freq: Status: Active Protocol: Activity Type Activity Date Activity User E-Sign Co-Sign Detail Recorded Client Recorded Date Recorded By Document 01/03/20 13:36 [id number] 01/03/20 13:37 Document 01/17/20 13:20 JF [id number] 01/17/20 13:20 Document 01/24/20 13:40 RB [id number] 01/24/20 13:41 RB 01/03/20 01/17/20 01/24/20 13:36 13:20 13:40 Wound Care Nurse 3 #1- L LATERAL ANKLE -Ulcer Cleansing Rinsed/ Rinsed/ Irrigated with Irrigated with Saline Saline -Foul Odor after Cleansing No No -Primary Dressing Applied C Hydrogel ($) -Other Dressing applied hydrogel -Primary Dressing Covered/Secured with Dry Gauze, Dry Gauze, Dry Gauze, Secured with Secured with Secured with Tape Tape Tape Left -Stockings Yes Pain Scale: 0-10 Numeric Is Patient Pain Free? Yes Yes Yes Vital Signs Pulse Rate (60-100) 88 Pulse Location Monitor Respiratory Rate (12-18) 18 Respiratory rate source Observation Blood Pressure (90/60-120/80) 145/80 H Blood Pressure Mean (mm Hg) 101 Source Monitor Position Sitting Blood Pressure Location Left Arm Teaching: Wound Center Dressing Your Wound -Person Taught Patient -Teaching Method Discussion, Demonstration -Response to teaching Verbalize understanding WC - Visit Discharge Discharge Condition Stable Stable Stable Ambulatory Status Ambulatory Ambulatory Ambulatory Transportation Private Auto Private Auto Private Auto Medication Reconcilliation completed & Yes Yes No provided to patient/care provider Clinical Summary of Care Provided Yes Yes Yes No debridement was completed today - Very superficial Assessment/Plan Active Problems (Last Reviewed 10/18/19 @ 11:27 by Gianna Christianson) Rheumatoid arthritis (Chronic) Non-pressure chronic ulcer of unspecified part of left lower leg with fat layer exposed (Chronic) Delayed wound healing (Chronic) Contamination (Acute) Assessment: Left lower lateral leg ulcer, no acute signs of local infection- improving quality. Contamination noted with recent culture, treated with oral antibiotic. 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 Lower extremity edema potentially secondary to venous insufficiency. Peripheral vascular disease ruled out at this current time. Malnutrition suspected. History of osteopenia. Rheumatoid arthritis. Delayed wound healing Plan: I reviewed and discussed her plan. She has improvement noted and excisional debridement was not performed today. To change the dressing daily with regranex, growth factor enriched gel. She was advised to change this once every 24 hours. To discontinue medical grade antimicrobial Hibiclens soap. To continue Dial soap and water cleansing protocol prior to Regranex application. She has had significant delays in healing and this advanced product with additional growth factor is medically necessary for limb salvage. To cross train such as a stationary bike or resistance training with immobilziation boot in place to reduce ulcer site tension. To offload with pressure reduction with Tubigrip. To elevate. A prescription for donut offloading pillow was provided to avoid laying on this site while sleeping. She decided she does not want to proceed forward with this device. We discussed use of a cam walker immobilizatio n device to reduce tension on the skin on her ankles moving. It is noted that she had a prior fall and injury while using a boot and she is very apprehensive about this. She will hold off on wearing this on a routine basis at this time which is understandable. Her underlying infection versus contamination work- up including taking a wound culture post debridement and irrigation today for aerobic, anaerobic, and MRSA PCR. Anaerobic cocci bacteria was identified. She does not have any known drug allergies. Due to continued lack of complete ulcer closure I recommend a 2-week course of Augmentin. This is been completed without known side effects. I recommended updated x-rays and this was ordered. Three views of the ankle were reviewed and she still has an apparent delayed or nonhealing fibular fracture which is far proximal to the ulcer and is not in direct communication with this. Her intramedullary fibular eileen is intact. There is no apparent distal screw loosening. I suspect the ulcer is directly lined up with one of the holes in the fibular eileen we are the more recent syndesmosis button was removed due to the depth I was able to probe with a curette and a recent clinical visit. There is no soft tissue emphysema or foreign body, or aggressive osseous destruction noted. There was no syndesmosis gapping and the overlap of the fibula and tibia remain intact. I reviewed her recent lab work from 11-08-2019 from [facility] which did not have leukocytosis or gross abnormalities with her BMP. Her albumin level 3.5. Additional lab work-up was recommended follow CBC and inflammatory markers such as ESR and C-reactive protein. Due to the chronicity of this wound I recommend noninvasive arterial vascular studies even though she has palpable pulses. This was reviewed. She has triphasic waveforms and her ABIs were for the most part in the normal range. There is intentionally slight elevation suggesting early calcification. If ongoing delays are noted a vascular referral be considered however there is no evidence of occlusion or critical limb ischemia warranting rapid referral at this time. I also recommend screening her for venous insufficiency with a venous Doppler with reflux evaluation. This was reviewed and her veins are not incompetent. To continue with light compression. We discussed the importance of proper nutrition and healing. She is given nutritional supplements of Power. We discussed the importance of eating a variety of fresh fruits and vegetables and obtaining adequate protein in her diet. She will consider a nutritional referral in the future. It is noted that she has rheumatoid arthritis and some of her medications are likely contributing to her delayed healing. I have reviewed the case with her glacing machine tender, Dr. Serra via phone. She was advised to hold her Orencia which is an IV infusion she obtains once a month. She was advised it is okay to continue with methotrexate and her folic acid because these are not suspected to interfere with wound healing. We also discussed future surgical intervention options if she continues to fail conservative care. We discussed excision with rotational flap and potential advanced wound healing product application. I would most likely recommend this is performed in the operating room sterile setting. She current plan more time for a couple of weeks. At this time I recommend proceeding with a conservative comprehensive wound healing plan. I answered all of her questions. She was advised to return to clinic in 1 week. . [employer] 2019: Reviewed today -medication and allergy reconciliation process was completed. Reviewed 12-13-2019 -she is a current non- smoker. Her pneumococcal and influenza vaccinations are noted. She has a fall history with injury of over 2 times and I recommended exercise and safety precautions to prevent this in the future. This was discussed in detail. Her blood pressure was elevated and noted at 141/76. To follow-up with primary care physician. Diet and activity recommendations were reviewed.
[2020-01-31 13:51] VITALS: BP 175/74; PULSE 90; RESP 18; TEMP 36.4; BMI 22.7
[2020-01-31 18:06] LABS: M R Staph aureus DNA By PCR Negative (Negative); Probe Check PASS; Specimen Processing Control PASS; Staph aureus DNA By PCR NEGATIVE (Negative)
--- NOTE | 2020-01-31 21:43 | PCM.WC.PN ---
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 She has been initial history of trimalleolus left ankle fracture s/p open reduction internal fixation by Dr. Hernandez in [place]. Patient subsequently developed painful hardware, nonunion and fibular fracture site with possible underlying infection. She has elected to proceed forward with removal of the painful retained hardware, incision and drainage with debridement, fibular IM eileen placement, and placement of grafting, also bone marrow aspiration and placement of concentrated bone marrow aspirate at the nonunion site. This was performed by Dr. Rios at [facility] on 10-28-2018. She also subsequently had irritation with one of her suture buttons from the syndesmosis tight rope and this was removed in clinic with Dr. Rios. She has been changing her dressing with regranex. She likes to swim and has been avoiding this activity. She denies current fever, chill, nausea, vomiting. She denies new or recent injuries. She has rheumatoid arthritis and is treated by Dr. Howard. She has held her Orencia medication. She also washes her leg daily and wears a Tubigrip for edema management. She relates drainage had stopped and it started again yesterday. Progress of Wound: Stable with continued delayed healing - Physical Exam Vital Signs Temp Pulse Resp BP 97.6 F L 90 18 175/74 H 01/31/20 13:51 01/31/20 13:51 01/31/20 13:51 01/31/20 13:51 General: Alert, Oriented x3, Cooperative, No apparent distress HEENT: Atraumatic Extremities: No cyanosis, Capillary Refill Less than 3 Seconds, No Calf Tenderness - Negative Anderson and Cramer sign, Edema - Mild, Peripheral Pulses Normal, - - No pain with ulcer palpation or manipulation. No adjacent bogginess or fluctuance Skin: Ulcer/ Wound - This ulcer is very small in diameter of approximately 1 mm. It continues to probe deep communication to the bone and fibular eileen hole. The elisa-ulcer inflammation, erythema and edema have resolved. Her skin is atrophic and hairless around the site. She has a healed adjacent cicatrix. There is no necrosis, streaking, purulence, or odor Wound Measurements and Assessment WC - Nurse 1 - General Ulcer Measurement Start: 01/03/20 13:05 Freq: Status: Active Protocol: Activity Type Activity Date Activity User E-Sign Co-Sign Detail Recorded Client Recorded Date Recorded By Document 01/31/20 13:51 DL [id number] 01/31/20 13:58 DL 01/31/20 13:51 Wound Center Nurse 1 [Ulcer Assessment] #1- L LATERAL ANKLE -Current Size (cm) - Length 0.2 -Current Size (cm) - Width 0.1 -Current Size (cm) - Depth 0.1 -Total Square Cm 0.02 -Photo Taken No -Exudate Amt Small -Exudate Type Serosanguineous -Wound Margin Distinct, Outline Attached -Granulation Amt Small (1-33%) -Granulation Quality [place] -Necrosis Amt None Present (0 %) -Structure Exposed N/A -Moisture (Elisa-wound Skin Appearance Maceration ) -Color (Elisa-wound Skin Appearance) Hemosiderin Staining -Temperature (Elisa-wound Skin No Abnormality Appearance) (Pt Warm) -Tenderness on Palpation (Elisa-wound No Skin Appearance) -Ulcer Cleansing Rinsed/ Irrigated with Saline -Foul Odor after Cleansing No -Anesthetic Used 4% Lidocaine Solution [Edema Assessment] -Left Calf (cm) 32 -Left Ankle (cm) 21 WC - Nurse 2 - General Ulcer CM Notes Start: 01/03/20 13:05 Freq: Status: Active Protocol: Activity Type Activity Date Activity User E-Sign Co-Sign Detail Recorded Client Recorded Date Recorded By Document 01/31/20 14:54 [id number] 01/31/20 14:55 01/31/20 14:54 Wound Center Nurse 2 [Procedure/Treatment] #1- L LATERAL ANKLE -Time 15:06 -Correct Patient Yes -Correct Side, Site, Position Yes -Correct Procedure Yes -Procedure Performed Yes -Type of Procedure Debridement -Clinical Debridement Subcutaneous -Tissue Removed Subcutaneous -Post Debridement (cm) - Length 0.1 -Post Debridement (cm) - Width 0.1 -Post Debridement (cm) - Depth 0.1 -Total Square (Post) (cm) 0.01 -Area of Debridement (cm) - Length 0.1 -Area of Debridement (cm) - Width 0.1 -Total Square (Area) (cm) 0.01 -Tunneling No -Undermining/Tunneling No -Circular Undermining No -Wound/Ulcer Outcome Not Healed -Bleeding Controlled with Pressure -Offloading No -Treatment Response Procedure Tolerated Well -Debridement - Subq, 1st 20sq cm Yes [See Physician Procedure note for Specifics] Pain Scale: 0-10 Numeric [Pain] -Is Patient Pain Free? Yes - Nurse 3 - General Ulcer D/C NN Start: 01/03/20 13:05 Freq: Status: Active Protocol: Activity Type Activity Date Activity User E-Sign Co-Sign Detail Recorded Client Recorded Date Recorded By Document 01/31/20 15:15 [id number] 01/31/20 15:15 01/31/20 15:15 Wound Care Nurse 3 [Wound Dressing] #1- L LATERAL ANKLE -Primary Dressing Covered/Secured Dry Gauze, with Secured with Tape [Compression Applied] Left -Other pt own tubigrip [Post Procedure Tolerated] -Treatment Response Procedure Tolerated Well Pain Scale: 0-10 Numeric [Pain] -Is Patient Pain Free? Yes - Visit Discharge [Visit Discharge Information] -Discharge Condition Stable -Ambulatory Status Ambulatory -Transportation Private Auto -Medication Reconcilliation completed No & provided to patient/care provider -Clinical Summary of Care Provided Yes Musculoskeletal: No Tenderness to Palpation of Joints or Extremities, No Muscle Wasting, - - Rheumatoid arthritis hand deformities are noted Neurological: - - Epicritic sensation is intact to light touch to foot and ankle dermatomes left lower extremity Psych/Mental Status: Normal Affect, Appropriate Debridement Note Post-Debridement Measurements/Treatment - Nurse 2 - General Ulcer CM Notes Start: 01/03/20 13:05 Freq: Status: Active Protocol: Activity Type Activity Date Activity User E-Sign Co-Sign Detail Recorded Client Recorded Date Recorded By Document 01/03/20 13:29 [id number] 01/03/20 13:32 Document 01/17/20 13:19 [id number] 01/17/20 13:19 Document 01/24/20 13:28 [id number] 01/24/20 13:28 Document 01/31/20 14:54 [id number] 01/31/20 14:55 01/03/20 01/17/20 01/24/20 13:29 13:19 13:28 Wound Center Nurse 2 #1- L LATERAL ANKLE -Time 13:30 -Correct Patient Yes No No -Correct Side, Site, Position Yes No No -Correct Procedure Yes No No -Procedure Performed Yes No No -Type of Procedure Debridement -Clinical Debridement Subcutaneous -Tissue Removed Subcutaneous -Post Debridement (cm) - Length 0.2 -Post Debridement (cm) - Width 0.2 -Post Debridement (cm) - Depth 0.2 -Total Square (Post) (cm) 0.04 -Area of Debridement (cm) - Length 0.2 -Area of Debridement (cm) - Width 0.2 -Total Square (Area) (cm) 0.04 -Tunneling No No No -Undermining/Tunneling No No No -Circular Undermining No No No -Wound/Ulcer Outcome Not Healed Not Healed Not Healed -Ulcer Cleansing Rinsed/ Rinsed/ Irrigated with Irrigated with Saline Saline -Foul Odor after Cleansing No No -Bioengineered Tissue No No -Bleeding Controlled with Pressure -Offloading No -Treatment Response Procedure Tolerated Well -Debridement - Subq, 1st 20sq cm Yes Pain Scale: 0-10 Numeric Is Patient Pain Free? Yes Yes 01/31/20 14:54 Wound Center Nurse 2 #1- L LATERAL ANKLE -Time 15:06 -Correct Patient Yes -Correct Side, Site, Position Yes -Correct Procedure Yes -Procedure Performed Yes -Type of Procedure Debridement -Clinical Debridement Subcutaneous -Tissue Removed Subcutaneous -Post Debridement (cm) - Length 0.1 -Post Debridement (cm) - Width 0.1 -Post Debridement (cm) - Depth 0.1 -Total Square (Post) (cm) 0.01 -Area of Debridement (cm) - Length 0.1 -Area of Debridement (cm) - Width 0.1 -Total Square (Area) (cm) 0.01 -Tunneling No -Undermining/Tunneling No -Circular Undermining No -Wound/Ulcer Outcome Not Healed -Ulcer Cleansing -Foul Odor after Cleansing -Bioengineered Tissue -Bleeding Controlled with Pressure -Offloading No -Treatment Response Procedure Tolerated Well -Debridement - Subq, 1st 20sq cm Yes Pain Scale: 0-10 Numeric Is Patient Pain Free? Yes - Nurse 3 - General Ulcer D/C NN Start: 01/03/20 13:05 Freq: Status: Active Protocol: Activity Type Activity Date Activity User E-Sign Co-Sign Detail Recorded Client Recorded Date Recorded By Document 01/03/20 13:36 [id number] 01/03/20 13:37 JF Document 01/17/20 13:20 JF [id number] 01/17/20 13:20 JF Document 01/24/20 13:40 RB [id number] 01/24/20 13:41 RB Document 01/31/20 15:15 RB [id number] 01/31/20 15:15 RB 01/03/20 01/17/20 01/24/20 13:36 13:20 13:40 Wound Care Nurse 3 #1- L LATERAL ANKLE -Ulcer Cleansing Rinsed/ Rinsed/ Irrigated with Irrigated with Saline Saline -Foul Odor after Cleansing No No -Primary Dressing Applied C Hydrogel ($) -Other Dressing applied hydrogel -Primary Dressing Covered/Secured with Dry Gauze, Dry Gauze, Dry Gauze, Secured with Secured with Secured with Tape Tape Tape Left -Stockings Yes -Other Treatment Response Pain Scale: 0-10 Numeric Is Patient Pain Free? Yes Yes Yes Vital Signs Pulse Rate (60-100) 88 Pulse Location Monitor Respiratory Rate (12-18) 18 Respiratory rate source Observation Blood Pressure (90/60-120/80) 145/80 H Blood Pressure Mean (mm Hg) 101 Source Monitor Position Sitting Blood Pressure Location Left Arm Teaching: Wound Center Dressing Your Wound -Person Taught Patient -Teaching Method Discussion, Demonstration -Response to teaching Verbalize understanding WC - Visit Discharge Discharge Condition Stable Stable Stable Ambulatory Status Ambulatory Ambulatory Ambulatory Transportation Private Auto Private Auto Private Auto Medication Reconcilliation completed & Yes Yes No provided to patient/care provider Clinical Summary of Care Provided Yes Yes Yes 01/31/20 15:15 Wound Care Nurse 3 #1- L LATERAL ANKLE -Ulcer Cleansing -Foul Odor after Cleansing -Primary Dressing Applied -Other Dressing -Primary Dressing Covered/Secured with Dry Gauze, Secured with Tape Left -Stockings -Other pt own tubigrip Treatment Response Procedure Tolerated Well Pain Scale: 0-10 Numeric Is Patient Pain Free? Yes Vital Signs Pulse Rate (60-100) Pulse Location Respiratory Rate (12-18) Respiratory rate source Blood Pressure (90/60-120/80) Blood Pressure Mean (mm Hg) Source Position Blood Pressure Location Teaching: Wound Center Dressing Your Wound -Person Taught -Teaching Method -Response to teaching WC - Visit Discharge Discharge Condition Stable Ambulatory Status Ambulatory Transportation Private Auto Medication Reconcilliation completed & No provided to patient/care provider Clinical Summary of Care Provided Yes Wound debrided: lateral lower leg Laterality: Left Type of Debridement: Excisional debridement Anesthesia Used: 4% Lidocaine Solution Depth: in the subcutaneous layer Percentage of wound debrided: 100 Instrument Used: - - 1 mm curette Tissue Removed: fibrous, devitalized subcutaneous, biofilm, slough Severity: Fat Layer Exposed Amount of bleeding with debridement: Mild Bleeding Controlled with: Pressure Patient tolerated procedure well Assessment/Plan Assessment: Left lower lateral leg ulcer with delayed healing. Contamination previously noted, treated with oral antibiotic mid december 2019. 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 Lower extremity edema mild. Peripheral vascular disease ruled out at this current time. Malnutrition suspected. History of osteopenia. Rheumatoid arthritis. Delayed wound healing Plan: I reviewed and discussed her plan. She has a very small ulcer with continued delayed healing. The quality of the ulcer has improved since she has been receiving care at the wound healing center however deep communication is still noted. Debridement was performed as noted in the clinical panel. To change the dressing daily with regranex, growth factor enriched gel. She was advised to change this once every 24 hours. To continue Dial soap and water cleansing protocol prior to Regranex application. To avoid swimming pool activities. She was advised on some crosstraining techniques. She has had significant delays in healing and this advanced product with additional growth factor is medically necessary for limb salvage. To offload with pressure reduction with Tubigrip. To elevate. We discussed use of a cam walker immobilization device to reduce tension on the skin on her ankles moving. It is noted that she had a prior fall and injury while using a boot and she is very apprehensive about this. She will hold off on wearing this on a routine basis at this time which is understandable. To continue to hold Orencia medication. She will also hold methotrexate at this time. This was discussed previously with her log rider. Her underlying infection versus contamination work-up included taking a wound culture post debridement and irrigation on 12-13-2019 for aerobic, anaerobic, and MRSA PCR. Anaerobic cocci bacteria was identified. She completed a two-week course of Augmentin and had resolution of elisa-ulcer inflammation. An additional updated culture was obtained today in clinic and results are pending. I recommended prior x-rays and this was reviewed mid December 2019. Three views of the ankle were reviewed and she still has an apparent delayed or nonhealing fibular fracture which is far proximal to the ulcer and is not in direct communication with this. Her intramedullary fibular eileen is intact. There is no apparent distal screw loosening. I suspect the ulcer is directly lined up with one of the holes in the fibular eileen we are the more recent syndesmosis button was removed due to the depth I was still able to probe with a curette and a recent clinical visit. There is no soft tissue emphysema or foreign body, or aggressive osseous destruction noted. There was no syndesmosis gapping and the overlap of the fibula and tibia remain intact. I reviewed her recent lab work from 01-23-2020 without leukocytosis. Additional lab work-up was recommended with additional inflammatory markers such as ESR and C-reactive protein. I recommend proceeding forward with further infection work-up at this time. Infectious disease reconsultation will be initiated for next week. A bone scan with white blood cell labeled test will be considered. I also recommended surgical intervention including a bone biopsy and rotational skin plasty closure. She understands she may need hardware removal however further work-up with the a forementioned intervention will be pursued at this time. The indication, benefits, risk, complications, anticipated intervention and management were reviewed. No guarantees were made and she is amendable to proceed forward with these recommendations. . She had arterial studies performed. She has triphasic waveforms and her ABIs were for the most part in the normal range. There is no evidence of occlusion or critical limb ischemia warranting rapid referral at this time. She completed a venous Doppler with reflux evaluation. This was reviewed and her veins are not incompetent. To continue with light compression. We discussed the importance of proper nutrition and healing. She is given nutritional supplements of Power. We discussed the importance of eating a variety of fresh fruits and vegetables and obtaining adequate protein in her diet. She will consider a nutritional referral in the future. I answered all of her questions. She was advised to return to clinic in 1 week for infectious disease evaluation. . [place]CRA 2019: Reviewed today -medication and allergy reconciliation process was completed. Reviewed 12-13-2019 -she is a current non-smoker. Her pneumococcal and influenza vaccinations are noted. She has a fall history with injury of over 2 times and I recommended exercise and safety precautions to prevent this in the future. This was discussed in detail. Her blood pressure was elevated and noted at 141/76. To follow-up with primary care physician. Diet and activity recommendations were reviewed.
== END 2020-01-31 23:59 ==
LOC: WC 13:45
PROVIDERS: PCP Family Medicine; Referring Provider Podiatrist; Visit Provider Podiatrist
DX: I87.2 Venous insufficiency (chronic) (peripheral) (principal); L97.822 Non-pressure chronic ulcer of other part of left lower leg with fat layer exposed; R60.0 Localized edema; M06.9 Rheumatoid arthritis, unspecified
CPT/HCPCS: 11042; 87070; 87075; 87205; 87640; 99212; G0463

== ENCOUNTER 2020-02-14 13:04 | Outpatient (RCR) | payer MEDICARE, SELFPAY ==
[2020-02-01 00:38] VITALS: BP 175/74; PULSE 90; RESP 18; TEMP 36.4
[2020-02-14 13:23] VITALS: BP 165/84; PULSE 87; RESP 18; TEMP 36.6; BMI 22.7
[2020-02-14 13:58] VITALS: BP 124/78
--- NOTE | 2020-02-14 14:22 | PCM.WC.PN ---
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 Status: Suspected Code(s): T84.7XXA - Infection and inflammatory reaction due to other internal orthopedic prosthetic devices, implants and grafts, initial encounter (2) Osteomyelitis of left lower extremity Status: Suspected Code(s): M86.9 - Osteomyelitis, unspecified (3) Rheumatoid arthritis Status: Chronic Code(s): M06.9 - Rheumatoid arthritis, unspecified (4) Non-pressure chronic ulcer of unspecified part of left lower leg with fat layer exposed Status: Chronic Code(s): L97.922 - Non-pressure chronic ulcer of unspecified part of left lower leg with fat layer exposed (5) Colonization status Status: Chronic Code(s): Z22.9 - Carrier of infectious disease, unspecified Type of Wound Date of Service: 02/14/20 Chief Complaint: Left leg ulcer History of Wound: This 84-year-old female presents to the wound healing center for delayed healing of her left lateral lower leg. She has been initial history of trimalleolus left ankle fracture s/p open reduction internal fixation by Dr. Hernandez in [place]. Patient subsequently developed painful hardware, nonunion and fibular fracture site with possible underlying infection. She has elected to proceed forward with removal of the painful retained hardware, incision and drainage with debridement, fibular IM eileen placement, and placement of grafting, also bone marrow aspiration and placement of concentrated bone marrow aspirate at the nonunion site. This was performed by Dr. Rios at [facility] on 10-28-2018. She also subsequently had irritation with one of her suture buttons from the syndesmosis tight rope and this was removed in clinic with Dr. Rios. She has been changing her dressing with regranex. She likes to swim and has been avoiding this activity. She denies current fever, chill, nausea, vomiting. She denies new or recent injuries. She has rheumatoid arthritis and is treated by Dr. Howard. She has held her Orencia medication. She also washes her leg daily and wears a Tubigrip for edema management. She relates drainage had stopped and it started again yesterday. She had a consultation with infectious disease last week and reviewed various options including further work-up, monitoring, long-term antibiotics as long as her hardware is retained. She is leaning towards proceeding forward with work-up at this time. She also asks if she can wrap her leg in Saran wrap and waterproof Band-Aids to allow her return to the swimming pool. Progress of Wound: Stable; decrease inflammation periulcer - Physical Exam Vital Signs Temp Pulse Resp BP 98 F 87 18 124/78 H 02/14/20 13:23 02/14/20 13:23 02/14/20 13:23 02/14/20 13:58 General: Alert, Oriented x3, Cooperative, No apparent distress HEENT: Atraumatic Extremities: No cyanosis, Capillary Refill Less than 3 Seconds, No Calf Tenderness, Diminished Peripheral Pulses, Edema - Mild Skin: Ulcer/ Wound - No purulence, erythema, streaking, odor, infection. Her skin is hairless and atrophic. There is evidence of prior cicatrix along her lateral ankle at her prior surgery and revisional surgical site. A pin point hole ulcer remains; corresponds at the level of the most recently remove suture button Wound Measurements and Assessment WC - Nurse 1 - General Ulcer Measurement Start: 02/14/20 13:23 Freq: Status: Active Protocol: Activity Type Activity Date Activity User E-Sign Co-Sign Detail Recorded Client Recorded Date Recorded By Document 02/14/20 13:23 RB [id number] 02/14/20 13:25 RB 02/14/20 13:23 Wound Center Nurse 1 [Ulcer Assessment] #1- L LATERAL ANKLE -Combined with other wound No -Current Size (cm) - Length 0.1 -Current Size (cm) - Width 0.1 -Current Size (cm) - Depth 0.1 -Total Square Cm 0.01 -Tunneling No -Undermining/Tunneling No -Circular Undermining No -Exudate Amt Small -Wound Margin Flat & Intact -Granulation Amt Medium (34-66%) -Granulation Quality [place] -Slough/Fibrin Yes -Necrosis Amt Small (1-33%) -Necrotic Tissue Type Adherent Slough -Structure Exposed N/A -Texture (Elisa-wound Skin Appearance) Assessed -Moisture (Elisa-wound Skin Appearance Assessed, ) Maceration -Color (Elisa-wound Skin Appearance) Assessed -Temperature (Elisa-wound Skin No Abnormality Appearance) (Pt Warm) -Tenderness on Palpation (Elisa-wound No Skin Appearance) -Ulcer Cleansing Rinsed/ Irrigated with Saline -Anesthetic Used 5% Lidocaine Gel [Edema Assessment] -Lower Limb Edema Present Yes -Left Ankle (cm) 35.5 -Left Foot (cm) 21.5 WC - Nurse 2 - General Ulcer CM Notes Start: 02/14/20 13:23 Freq: Status: Active Protocol: Activity Type Activity Date Activity User E-Sign Co-Sign Detail Recorded Client Recorded Date Recorded By Document 02/14/20 13:37 [id number] 02/14/20 13:46 02/14/20 13:37 Wound Center Nurse 2 [Procedure/Treatment] #1- L LATERAL ANKLE -Correct Patient No -Correct Side, Site, Position No -Correct Procedure No -Procedure Performed No -Tunneling No -Undermining/Tunneling No -Circular Undermining No -Wound/Ulcer Outcome Not Healed -Ulcer Cleansing Rinsed/ Irrigated with Saline -Foul Odor after Cleansing No -Bioengineered Tissue No -Bleeding Controlled with Pressure -Treatment Response Procedure Tolerated Well -Debridement - Subq, 1st 20sq cm No [See Physician Procedure note for Specifics] Pain Scale: 0-10 Numeric [Pain] -Is Patient Pain Free? Yes - Nurse 3 - General Ulcer D/C NN Start: 02/14/20 13:23 Freq: Status: Active Protocol: Activity Type Activity Date Activity User E-Sign Co-Sign Detail Recorded Client Recorded Date Recorded By Document 02/14/20 13:58 RB [id number] 02/14/20 13:59 RB 02/14/20 13:58 Wound Care Nurse 3 [Wound Dressing] #1- L LATERAL ANKLE -Primary Dressing Covered/Secured Dry Gauze, with Secured with Tape [Post Procedure Tolerated] -Treatment Response Procedure Tolerated Well Vital Signs [Blood Pressure] -Blood Pressure (90/60-120/80) 124/78 H -Blood Pressure Mean (mm Hg) 93 -Source Monitor -Position Sitting -Blood Pressure Location Left Arm Pain Scale: 0-10 Numeric [Pain] -Is Patient Pain Free? Yes Teaching: Wound Center [Wound Center Education] (Items with an * have Printed Materials Available- Please identify what is given to patient under the Teaching materials given to patient and caregiver Section. Dressing Your Wound -Person Taught Patient -Teaching Method Discussion -Response to teaching Verbalize understanding - Visit Discharge [Visit Discharge Information] -Discharge Condition Stable -Ambulatory Status Ambulatory -Transportation Private Auto -Medication Reconcilliation completed No & provided to patient/care provider -Clinical Summary of Care Provided Yes Musculoskeletal: No Tenderness to Palpation of Joints or Extremities, Muscle Wasting Neurological: Sensory exam intact to light touch and pain Psych/Mental Status: Normal Affect - Very mild, Appropriate Debridement Note Post-Debridement Measurements/Treatment WC - Nurse 2 - General Ulcer CM Notes Start: 02/14/20 13:23 Freq: Status: Active Protocol: Activity Type Activity Date Activity User E-Sign Co-Sign Detail Recorded Client Recorded Date Recorded By Document 02/14/20 13:37 [id number] 02/14/20 13:46 02/14/20 13:37 Wound Center Nurse 2 #1- L LATERAL ANKLE -Correct Patient No -Correct Side, Site, Position No -Correct Procedure No -Procedure Performed No -Tunneling No -Undermining/Tunneling No -Circular Undermining No -Wound/Ulcer Outcome Not Healed -Ulcer Cleansing Rinsed/ Irrigated with Saline -Foul Odor after Cleansing No -Bioengineered Tissue No -Bleeding Controlled with Pressure -Treatment Response Procedure Tolerated Well -Debridement - Subq, 1st 20sq cm No Pain Scale: 0-10 Numeric Is Patient Pain Free? Yes - Nurse 3 - General Ulcer D/C NN Start: 02/14/20 13:23 Freq: Status: Active Protocol: Activity Type Activity Date Activity User E-Sign Co-Sign Detail Recorded Client Recorded Date Recorded By Document 02/14/20 13:58 RB [id number] 02/14/20 13:59 RB 02/14/20 13:58 Wound Care Nurse 3 #1- L LATERAL ANKLE -Primary Dressing Covered/Secured with Dry Gauze, Secured with Tape Treatment Response Procedure Tolerated Well Vital Signs Blood Pressure (90/60-120/80) 124/78 H Blood Pressure Mean (mm Hg) 93 Source Monitor Position Sitting Blood Pressure Location Left Arm Pain Scale: 0-10 Numeric Is Patient Pain Free? Yes Teaching: Wound Center Dressing Your Wound -Person Taught Patient -Teaching Method Discussion -Response to teaching Verbalize understanding WC - Visit Discharge Discharge Condition Stable Ambulatory Status Ambulatory Transportation Private Auto Medication Reconcilliation completed & No provided to patient/care provider Clinical Summary of Care Provided Yes No debridement was completed today Assessment/Plan Active Problems (Last Reviewed 10/18/19 @ 11:27 by Gianna Christianson) Colonization status (Chronic) Rheumatoid arthritis (Chronic) Non-pressure chronic ulcer of unspecified part of left lower leg with fat layer exposed (Chronic) Assessment: Left lower lateral leg ulcer with delayed healing. Contamination previously noted, treated with oral antibiotic mid december 2019. 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 Lower extremity edema mild. Peripheral vascular disease ruled out at this current time. Malnutrition suspected. History of osteopenia. Rheumatoid arthritis. Delayed wound healing Plan: I reviewed and discussed her plan. She has a very small ulcer with continued delayed healing. The quality of the ulcer has improved since she has been receiving care at the wound healing center however deep communication is still noted. Debridement was not performed today. To change the dressing daily with regranex, growth factor enriched gel. She was advised to change this once every 24 hours. To continue Dial soap and water cleansing protocol prior to Regranex application. To avoid swimming pool activities. She was advised on some crosstraining techniques. She is adamant that she needs to return to her exercise program and asked if she can wrap her leg in Saran wrap or waterproof Band-Aids. I do not recommend these items because they will not prevent water from getting in the wound. I also advised her that regular shower protection bags will not prevent water from getting into her ulcer site while submerged in a swimming pool. I will help her look into other options including vacuum airtight sealed cast covers specifically designed for swimming. She has had significant delays in healing and this advanced product with additional growth factor is medically necessary for limb salvage. To offload with pressure reduction with Tubigrip. To elevate. We discussed use of a cam walker immobilization device to reduce tension on the skin on her ankles moving. It is noted that she had a prior fall and injury while using a boot and she is very apprehensive about this. She will hold off on wearing this on a routine basis at this time which is understandable. To continue to hold Orencia medication. She will also hold methotrexate at this time. This was discussed previously with her environmental air specialist. Her underlying infection versus contamination work-up included taking a wound culture post debridement and irrigation on 12-13-2019 for aerobic, anaerobic, and MRSA PCR. Anaerobic cocci bacteria was identified. She completed a two-week course of Augmentin and had resolution of elisa-ulcer inflammation (improvement but not closure). Her most recent wound culture had no bacterial growth. Her most recent prior x-rays were reviewed mid December 2019. Three views of the ankle were reviewed and she still has an apparent delayed or nonhealing fibular fracture which is far proximal to the ulcer and is not in direct communication with this. Her intramedullary fibular eileen is intact. There is no apparent distal screw loosening. I suspect the ulcer is directly lined up with one of the holes in the fibular eileen we are the more recent syndesmosis button was removed due to the depth I was still able to probe with a curette and a recent clinical visit. There is no soft tissue emphysema or foreign body, or aggressive osseous destruction noted. There was no syndesmosis gapping and the overlap of the fibula and tibia remain intact. I reviewed her recent lab work from 01-23-2020 without leukocytosis. Additional lab work-up was recommended with additional inflammatory markers such as ESR and C-reactive protein. I recommend proceeding forward with further infection work-up at this time. Infectious disease reconsultation was initiated and Dr. Patrick's note was reviewed. Input is appreciated. A bone scan with white blood cell labeled test will be ordered at this time; prior authorization will be completed first. I also recommended surgical intervention including a bone biopsy and rotational skin plasty closure. She understands she may need hardware removal however further work-up with the a forementioned intervention will be pursued at this time. The indication, benefits, risk, complications, anticipated intervention and management were reviewed. No guarantees were made and she is amendable to proceed forward with these recommendations. . She had arterial studies performed. She has triphasic waveforms and her ABIs were for the most part in the normal range. There is no evidence of occlusion or critical limb ischemia warranting rapid referral at this time. She completed a venous Doppler with reflux evaluation. This was reviewed and her veins are not incompetent. To continue with light compression. We discussed the importance of proper nutrition and healing. She is given nutritional supplements of Power. We discussed the importance of eating a variety of fresh fruits and vegetables and obtaining adequate protein in her diet. She will consider a nutritional referral in the future. I answered all of her questions. She was advised to return to clinic in 1 week for infectious disease evaluation. . MACRA 2019: Reviewed today -medication and allergy reconciliation process was completed. Reviewed 12-13-2019 -she is a current non-smoker. Her pneumococcal and influenza vaccinations are noted. She has a fall history with injury of over 2 times and I recommended exercise and safety precautions to prevent this in the future. This was discussed in detail. Her blood pressure was elevated and noted at 141/76. To follow-up with primary care physician. Diet and activity recommendations were reviewed.
== END 2020-03-02 23:59 ==
LOC: WC 13:04
PROVIDERS: PCP Family Medicine; Referring Provider Podiatrist; Visit Provider Podiatrist
DX: T84.7XXA Infection and inflammatory reaction due to other internal orthopedic prosthetic devices, implants and grafts, initial encounter (principal); T84.84XA Pain due to internal orthopedic prosthetic devices, implants and grafts, initial encounter; L97.922 Non-pressure chronic ulcer of unspecified part of left lower leg with fat layer exposed; M86.9 Osteomyelitis, unspecified; M06.9 Rheumatoid arthritis, unspecified; Z22.9 Carrier of infectious disease, unspecified; M85.80 Other specified disorders of bone density and structure, unspecified site; R60.0 Localized edema
CPT/HCPCS: 99212; G0463

== ENCOUNTER → 2020-02-23 14:48 | Outpatient (CLI) | payer MEDICARE, SELFPAY ==
[2020-02-14 13:23] VITALS: BMI 22.7
[2020-02-23 18:05] LABS: Absolute Lymphocyte Count 1.26 X10^3/uL (0.83-4.51); Absolute Neutrophil Count 2.5 X10^3/uL (2.0-7.7); Basophil# 0.03 X10^3/uL; Basophil% 0.7 % (0-1); Eosinophil# 0.09 X10^3/uL; Hematocrit 37.2 % (37-47); Lymphocyte # 1.26 X10^3/ul (4.0); Lymphocyte % 28.4 % (19-41); Mean Corp Hgb Conc 32.3 g/dL (32-36); Mean Corpuscular Hgb 30.7 pg (27.0-32.0); Mean Corpuscular Volume 95.1 fL (81-99); Mean Platelet Vol. 11.6 fl (6.2-12.0); Monocyte# 0.56 X10^3/uL; Monocyte% 12.6 % (0-10); NRBC Flagged by Analyzer 0 % (0-5); Neutrophil # 2.48 X10^3/uL (2.7-7.7); Neutrophil % 56.1 % (47-70); Platelet Count 169 K/mm3 (150-450); RBC Distribution Width CV 13.8 % (11.6-14.6); Red Blood Count 3.91 M/mm3 (4.2-5.4); White Blood Count 4.4 K/mm3 (4.4-11.0)
[2020-02-23 18:32] LABS: ALB/GLOB Ratio 1.1 RATIO (0.9-2.4); AST(SGOT) 19 U/L (15-37); Alanine Aminotransfer ALT/SGPT 19 U/L (13-56); Albumin, Serum 3.6 g/dL (3.2-5.0); Alkaline Phosphatase 44 U/L (45-117); Anion Gap 5 (5-15); BUN 25 mg/dL (7-18); Calcium,Total 9.8 mg/dL (8.5-10.1); Chloride 107 mmol/L (98-107); EST Glomerular Filtration Rate 56 mL/min (>60); Est Glom Filt Rate - Afr Amer 68 mL/min (>60); Globulin 3.2 g/dL (2.2-4.2); Glucose 101 mg/dL (74-106); Potassium 4.6 mmol/L (3.5-5.1); Protein, Total 6.8 g/dL (6.4-8.2); Sodium Level 139 mmol/L (136-145)
== END ==
PROVIDERS: PCP Family Medicine; Referring Provider Internal Medicine Rheumatology; Visit Provider Internal Medicine Rheumatology
DX: M05.70 Rheumatoid arthritis with rheumatoid factor of unspecified site without organ or systems involvement (principal); M50.30 Other cervical disc degeneration, unspecified cervical region; Z85.3 Personal history of malignant neoplasm of breast; Z79.899 Other long term (current) drug therapy
CPT/HCPCS: 36415; 80053; 85025

== ENCOUNTER → 2020-02-26 05:43 | Outpatient (CLI) | payer MEDICARE, SELFPAY ==
[2020-02-14 13:23] VITALS: BMI 22.7
--- NOTE | 2020-02-26 05:58 | NM_ITS ---
CLINICAL: 84-year-old female suspected osteomyelitis involving the left ankle articulation. LIMITED 99m Tc HMPAO LABELED LEUKOCYTE EXAMINATION COMPARISON: None available FINDINGS: Following the intravenous administration of 12.1 mCi of 99m Tc HMPAO labeled leukocytes, image acquisitions of the distal lower extremities at approximately 2.0 hours post radiopharmaceutical administration reveal: 1. There is no evidence of abnormal increased radiopharmaceutical concentration on review of limited projections. NM/Inflammatory Process Limited IMPRESSION: 1. NEGATIVE-NORMAL 99m Tc HMPAO labeled leukocyte examination. Meticulous attention paid to all compartments of the left ankle articulation define no evidence of abnormal increased tracer uptake. Electronically Signed: Feroz Larsen DO at 22:42 EDT Tel , Service support ,
== END ==
PROVIDERS: PCP Family Medicine; Referring Provider Podiatrist; Visit Provider Podiatrist
DX: M86.9 Osteomyelitis, unspecified (principal)
CPT/HCPCS: 78801; A9521; A4216

== ENCOUNTER → 2020-03-18 10:56 | Outpatient (CLI) | payer MEDICARE, SELFPAY ==
[2020-03-18 11:08] VITALS: BP 136/65; PULSE 89; RESP 16; TEMP 35.9; BMI 23.3
[2020-03-18] MEDS: 0.9% NaCl IVPB Med Flush (250 mL) 15 ML IV (11:42)
[2020-03-18] MEDS: 0.9% NaCl Peripheral Flush Adult/Peds IV (12:24)
[2020-03-18 12:38] VITALS: PULSE 75; RESP 16; TEMP 36.1; O2SAT 100
== END ==
PROVIDERS: PCP Family Medicine; Referring Provider Internal Medicine Rheumatology; Visit Provider Internal Medicine Rheumatology
DX: M06.9 Rheumatoid arthritis, unspecified (principal)
CPT/HCPCS: 96365; J7050; A4216; J0129

== ENCOUNTER 2020-04-12 09:11 | Inpatient (IN) | payer MEDICARE, SELFPAY ==
[2020-03-18 11:08] VITALS: BMI 23.3
[2020-04-12] VITALS (21 sets, daily range): BP systolic 95–131; BP diastolic 46–79; PULSE 52–72; RESP 11–21; TEMP 36.1–36.6; O2SAT 99–100; BMI 23.3
--- NOTE | 2020-04-12 10:11 | CON.PCM_ITS ---
Reason for Consult Date of Consultation: 04/12/20 Reason for Consultation: STEMI History of Present Illness: The patient is a 84 year old F [who had sudden onset of extreme fatigue this morning. She also felt a little disoriented at that time. She called the EMS who did an EKG on site which revealed inferior ST elevation PA and a STEMI alert was called. Patient was wheeled directly to the Lock Corner Machine Operator and was evaluated prior to being put on the cath table. She was having some chest discomfort and jaw discomfort as well. 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 She is doing well at the end of the procedure. Review of systems: All systems reviewed. All else is negative except that in HPI.] Past Medical History Allergies/Adverse Reactions: Allergies No Known Allergies Allergy (Verified 03/18/20 11:15) Home Medications: Ambulatory Orders Medication Instructions Recorded Folic Acid 1 mg PO BIDCM 02/07/13 Multivitamin [Daily Multiple 1 each PO DAILY #0 02/07/13 Vitamin] Naproxen Sodium [Aleve] 440 mg PO DAILY 02/07/13 leucovorin tablet 5 mg PO QWEEK 04/02/16 Pantoprazole Sodium [Protonix] 40 mg PO DAILY 04/17/17 Calcium Carbonate [Tums] 1,000 mg PO DAILY@0800 10/26/18 Abatacept [Orencia] mg SQ 12/13/19 Methotrexate 2.5 mg PO DAILY 12/13/19 Past Medical History (Chronic Problems): Chronic Problems (Last Reviewed 10/18/19 @ 11:27 by Gianna Christianson) Colonization status (Chronic) Rheumatoid arthritis (Chronic) Osteopenia (Chronic) History of malignant neoplasm of right breast (Chronic) Non-pressure chronic ulcer of unspecified part of left lower leg with fat layer exposed (Chronic) Delayed wound healing (Chronic) Surgical History: mastectomy, - Smoking Status: Never smoker Objective: Body Mass Index (BMI) 23.3 General: Awake, Alert, Oriented x 3 HEENT: Atraumatic Oral: Moist Mucosa Neck: Supple Cardiovascular: Regular Rhythm Abdomen: Soft Extremities: No edema Psych/Mental Status: Appropriate Rhythm: EKG: ECHO: Stress Test: Cardiac Cath: PCI: CT Surgery: Holter monitor: EPS: PPM: CXR: Chest CT Scan: Assessment/Plan 1. STEMI: Patient was treated with thrombectomy and drug-eluting stent placement. She is doing well at the end of the procedure. She will be admitted to the CCU for further management. Her EF is preserved. She does have apical hypokinesis that is because the RCA gives rise to a PDA that wraps around the inferior wall and also appears to supply the apex. We will keep the patient on aspirin, Brilinta, statin and beta-kemal.
--- NOTE | 2020-04-12 10:30 | EKG12_ITS ---
Test Reason : CHEST PAIN Blood Pressure : / mmHG Vent. Rate : 068 BPM Atrial Rate : 068 BPM P-R Int : 154 ms QRS Dur : 088 ms QT Int : 382 ms P-R-T Axes : 079 -52 082 degrees QTc Int : 406 ms Normal sinus rhythm Left axis deviation Nonspecific T wave abnormality ;consider lateral ischemia Abnormal ECG Confirmed by JO LOPES, JIMENEZ ([id number]), tire changer HOPE CASANOVA ([id number]) on 04/16/2020 12:41:13 PM Referred By: LEWIS Confirmed By:JIMENEZ OSORIO MD
--- NOTE | 2020-04-12 10:38 | CL.I_ITS ---
Patient Name: ROBERTO RASMUSSEN Study Date: 04/12/2020 Performing: Vee Fraser MD Ht: inches cm : 1935 Wt: lbs kg Age: 84 Gender: female BSA: PROCEDURE(S) PERFORMED DY15-PBH/COR/LV [id number], FABIANA AND/OR PTCA, ARTERY OR GRAFT, SINGLE VESSEL CLINICAL PROFILE AND CO-MORBIDITIES Indications: ACS <= 24 hrs Heart Failure: None Stress/Imaging Stress/Image Study Performed: No CAD Presentations: STEMI. Symptom onset Date/Time: 04/12/20 Time Not Available CONCLUSIONS CAD as described. Overall preserved EF with apical hypokinesis. No significant or MR. Successful t hrombectomy and FABIANA to mRCA RECOMMENDATIONS ASA Indefinitley Brilinta for at least 12 months DESCRIPTION OF PROCEDURE The patient arrived to the procedure lab. The risks and benefits of the procedure as well as a full d escription of our services here and lack of surgical backup were fully explained to the patient and/o r their significant other prior to the catheterization. The Timeout was completed, verifying the earl ect patient and procedure. The patient's procedural site was prepped and draped in the usual fashion. Local anesthetic was given subcutaneously to right radial region with Lidocaine 2%. Using a modified Seldinger technique, arterial access was obtained via the right radial artery, a 6Fr sheath was inse rted.. Left Coronary Artery selective angiography was performed in multiple views using a 5 Fr. JL3. 5 catheter. Left Ventriculography was performed in FRANZ projection using a 5 Fr. JR 3.5. LV to AO pull back pressures were then recorded JR 4 Guide catheter was inserted and engaged into the RCA. BMW Guide wire was advanced to the RCA . Priority One inserted Pass # 1 Priority One Removed Emerge 3.00x20 Balloon catheter was inserted. P TCA balloon inflated at 7 atms for 21 secs. PTCA balloon inflated at 6 atms for 13 secs. Angiogram pe rformed post balloon dilatation. Synergy 3.00x32 Drug Eluting stent was inserted. Angiogram performed post stent deployment. The arterial sheath was pulled and a TR Band was applied for hemostasis CORONARY ANGIOGRAPHY DOMINANCE: Right Dominant LEFT HEART ASSESSMENT Left Ventricular Ejection Fraction: by LV Gram 65 % Apical Hypokinesis - Mild LEFT MAIN: separate ostia of LAD and LCx from the aorta LEFT ANTERIOR DESCENDING ARTERY: Mild luminal irregularities CIRCUMFLEX ARTERY: Mild luminal irregularities RIGHT CORONARY ARTERY: MID RCA: 100 % Stenosis VALVE FINDINGS: No Aortic Valve Stenosis No Mitral Insufficency INTERVENTION INFORMATION LESION SITE: RCA (Mid) Lesion Complexity: High/C, chronic total occlusion: No, lesion at bifurcation: No, thrombus present: Yes, lesion length: 28 mm, culprit lesion: Yes, Previously treated lesion: No Pre Stenosis: 100 % Pre intervention RADHA flow: 0 PROCEDURE: Thrombectomy, Drug Eluting Stent with pre dilatation. Post Stenosis: 0 % Post intervention RADHA flow: 3 Lesion Devices: MEDOVENT 6 Fr JR4.0 100cm Guide Catheter Do .014 BMW [place] Straight 190cm farmbuy Priority One Aspiration Catheter Deep Sci EMERGE MR 3.00x20 BALLOON Deep Sci Synergy MR FABIANA 3.00x32 COMPLICATIONS No Complications PROCEDURE MEDICATIONS Fentanyl 25 mcg IV Oxygen: 2 L/min via nasal cannula Brilinta 180 mg PO @ 04/12/2020 10:01:51 Heparin 5000 unit(s) IV 04/12/2020 09:22:38 Heparin given IA 04/12/2020 09:23:55 Verapamil 2.5mg, 1500units of Heparin given IA 04/12/2020 09:23:55 SUMMARY OF HEMODYNAMIC DATA Time AIR REST ECG 09:19:26 AO 134/60 (88) SA 09:33:34 LV 125/8, 18 09:49:13 LV 131/9, 19 09:49:19 LV 132/11, 20 09:50:27 LVp 128/10, 20 09:50:42 AOp 135/54 (84) 09:50:47 Signed By Vee Fraser MD On 04/12/2020 10:37:43 Vee Fraser MD
[2020-04-12] MEDS: 0.9% Normal Saline 1,000 ML 100 ML IV (11:08)
--- NOTE | 2020-04-12 13:27 | ED.VISSUMM ---
- ER Visit Summary Date of Service: 04/12/20 Chief Complaint: Chest pain or shortness of breath History of Present Illness: The patient is a 84 F who was not seen or examined in the emergency department. [facility] was called for an elderly female with chest pain. They did transmit twelve-lead EKG. He did show significant inferior elevation with lateral changes. STEMI was activated prehospitally. I reviewed the EKG with Dr. Fraser and Dr. Kenny. The Trombone Slide Assembler was able to prepare prior to the patient arriving. The patient was taken immediately to the Trombone Slide Assembler without being seen in the emergency department. Impression 1. Acute inferior ST elevation IN This note was generated with [employer] dictation software. It may contain incorrect words, spelling, and punctuation that were not noted in review of the chart prior to signing
--- NOTE | 2020-04-12 13:29 | CRPHASE1_ITS ---
Patient Communication Former Patient:: Phase I PHII Cardiac Rehab Discussed with Patient:: Yes Guide to Cardiac Rehab Given to Patient:: Yes Cardiac Rehab Facility Choice List Given to Patient:: Yes Choice Program [facility] CR PHII:: Communication Given to CR Choice Program Other:: Communication Given to CR Director Of Rehabilitation:: Isela Fraser Refer Phase II Cardiac Rehab:: Yes Sessions:: 36 sessions - 3 days/wk, 12 weeks - pt very active- exercises 3x/week Risk Factors/Lifestyle Smoking Status: Never smoker Second-Hand Smoke:: No Hx Hypertension: No Hx Diabetes Mellitus Type 1: No Hx Diabetes Mellitus Type 2: No Hx Metabolic Disorders: No Hx Dyslipidemia: No Hx Obesity: No Post-Menopausal: Yes Stress: Recent ETOH: No Caffeine: No Substance Abuse: No Family History: Family History (Last Reviewed 10/18/19 @ 11:27 by Gianna Christianson) Father Clotting disorder Heart disease Cardiac Rehabilitation Info Cardiac Rehabilitation Program Information: Cardiac Rehabilitation is important for patients like you who are recovering from a heart problem. Cardiac rehabilitation programs are recognized as integral to the continued care of the patient with coronary heart disease. The cardiac rehabilitation program is designed to optimize a patient's physical, psychological, and social functioning. Health ocular care technician work in cardiac rehabilitation programs and assist you with getting the treatments you need to get stronger and healthier - like exercise, healthy eating habits, and medications. Cardiac rehabilitation has been show to help people with heart problems live longer and have better life enjoyment than people who do not go to cardiac rehabilitation. Please contact the Cardiac Rehabilitation Program at [facility] at in two weeks if you have not heard from them.
--- NOTE | 2020-04-12 13:31 | CRPH1.INSTRU ---
General Education CAD and cardiac anatomy and function:: Patient communicates acknowledgment Explanation of diagnoses and procedures:: Patient communicates acknowledgment Sign/Symptoms of LA:: Patient communicates acknowledgment Antiplatelet therapy: Patient communicates acknowledgment Smoking Patient Nicotine/Smoking Risk Factors Are:: Never smoked Dyslipidemia Recommendations Include:: Lipid profile not available Overweight/Obesity Patient Overweight/Obesity Risk Factors Are:: BMI Normal [24-29 & > 65 years old] Overweight/Obesity:: Not instructed Hypertension Patient Hypertension Risk Factors Are:: No documented hx of HTN Diabetes Patient Diabetes Risk Factors Are:: No documented hx of diabetes Stress Recommendations Include:: Identification of stressors, and assessment of coping skills, Stress management techniques Stress Response Code:: Patient communicates acknowledgment
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
[2020-04-12] MEDS: Acetaminophen 500 MG Tablet 1000 MG PO (20:04)
[2020-04-12] MEDS: oxyCODONE 5 MG Tablet PO (23:37)
[2020-04-12] MEDS: Folic Acid 1 MG Tablet PO (23:39)
[2020-04-12] MEDS: TICAGRELOR 90 MG TABLET PO (23:39)
[2020-04-12] MEDS: Metoprolol Tartrate 25 MG Tablet 12.5 MG PO (23:40)
[2020-04-12] MEDS: Atorvastatin Calcium 40 MG Tablet PO (23:40)
[2020-04-13] VITALS (20 sets, daily range): BP systolic 86–144; BP diastolic 41–61; PULSE 54–91; RESP 12–22; TEMP 36.6–37; O2SAT 96–100
[2020-04-13 04:55] LABS: Hematocrit 32.7 % (37-47); Hemoglobin 11.1 g/dL (12.0-15.0); Mean Corp Hgb Conc 33.9 g/dL (32-36); Mean Corpuscular Hgb 31.4 pg (27.0-32.0); Mean Corpuscular Volume 92.6 fL (81-99); Mean Platelet Vol. 11.2 fl (6.2-12.0); Platelet Count 129 K/mm3 (150-450); RBC Distribution Width CV 13.1 % (11.6-14.6); RBC Distribution Width SD 43.8 fl (35.1-43.9); Red Blood Count 3.53 M/mm3 (4.2-5.4); White Blood Count 6.5 K/mm3 (4.4-11.0)
[2020-04-13 05:12] LABS: ALB/GLOB Ratio 1.1 RATIO (0.9-2.4); AST(SGOT) 146 U/L (15-37); Alanine Aminotransfer ALT/SGPT 33 U/L (13-56); Alkaline Phosphatase 44 U/L (45-117); Anion Gap 5 (5-15); BUN 23 mg/dL (7-18); BUN/Creat Ratio 30.4 RATIO (10-20); Calcium,Total 8.3 mg/dL (8.5-10.1); Chloride 107 mmol/L (98-107); Creatinine, Serum 0.76 mg/dL (0.55-1.02); EST Glomerular Filtration Rate 78 mL/min (>60); Est Glom Filt Rate - Afr Amer 94 mL/min (>60); Estimated Creatinine Clearance 38.36 ml/min; Globulin 2.8 g/dL (2.2-4.2); Glucose 112 mg/dL (74-106); Potassium 3.9 mmol/L (3.5-5.1); Protein, Total 5.8 g/dL (6.4-8.2); Sodium Level 136 mmol/L (136-145)
--- NOTE | 2020-04-13 05:37 | EKG12_ITS ---
Test Reason : AM EKG Blood Pressure : / mmHG Vent. Rate : 056 BPM Atrial Rate : 056 BPM P-R Int : 156 ms QRS Dur : 092 ms QT Int : 436 ms P-R-T Axes : 072 -46 015 degrees QTc Int : 420 ms Sinus bradycardia with Premature atrial complexes Left axis deviation Nonspecific T wave abnormality Abnormal ECG When compared with ECG of 13-APR-2020 05:37, MANUAL COMPARISON REQUIRED, DATA IS UNCONFIRMED Confirmed by LEWIS LOPES, SHELTON ([id number]), manager editorial CARLEE CEJA ([id number]) on 04/25/2020 12:25:39 PM Referred By: ADRIAN Confirmed By:MARIE SAUCEDO MD
[2020-04-13] MEDS: Calcium Carbonate 500 MG Tablet 1000 MG PO (08:30)
[2020-04-13] MEDS: Aspirin E.C. 81 MG Tablet PO (08:30)
[2020-04-13] MEDS: Multivitamins,Therapeutic Tablet 1 TABLET PO (08:30)
[2020-04-13] MEDS: Folic Acid 1 MG Tablet PO ×2 (08:30→15:45)
[2020-04-13] MEDS: TICAGRELOR 90 MG TABLET PO ×2 (09:15→22:26)
[2020-04-13] MEDS: Pantoprazole Sodium 40 MG Tablet PO (09:16)
[2020-04-13] MEDS: Metoprolol Tartrate 25 MG Tablet 12.5 MG PO ×2 (09:16→22:26)
--- NOTE | 2020-04-13 10:00 | EKG12_ITS ---
Test Reason : AM EKG Blood Pressure : / mmHG Vent. Rate : 060 BPM Atrial Rate : 060 BPM P-R Int : 154 ms QRS Dur : 094 ms QT Int : 422 ms P-R-T Axes : 074 -53 069 degrees QTc Int : 422 ms Normal sinus rhythm Left axis deviation Nonspecific T wave abnormality Abnormal ECG Confirmed by JO LOPES, JIMENEZ ([id number]), editorial writer CARLEE CEJA ([id number]) on 04/25/2020 12:01:17 PM Referred By: LEWIS Confirmed By:JIMENEZ OSORIO MD
--- NOTE | 2020-04-13 11:37 | PCM.PN.HOSP ---
Patient Problems: Active and Suspected Problems (Last Reviewed 04/12/20 @ 13:[address] Michael Sinclair, DO) Malignant neoplasm of right female breast (Acute) Left ankle swelling (Acute) 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 (Suspected) Contamination (Acute) 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 (Suspected) Osteomyelitis of left lower extremity (Suspected) STEMI (ST elevation myocardial infarction) (Acute) Atherosclerosis of coronary artery of [place] heart without angina pectoris (Acute) History of coronary artery stent placement (Acute 04/12/20) 3.00 x 32 Synergy MR FABIANA to mRCA 04/12/20 Reason for Visit: STEMI Subjective: Feels well. Some midsternal chest pain. Vitals/I&O's: Vital Signs Temp Pulse Resp BP Pulse Ox 36.6 C 60 15 102/46 L 99 04/13/20 07:30 04/13/20 09:16 04/13/20 07:30 04/13/20 07:30 04/13/20 07:54 Oxygen Delivery Method Room Air Weight: 64.5 kg Body Mass Index (BMI) 23.3 Intake and Output for Last 24 Hours 04/11/20 04/12/20 04/13/20 23:59 23:59 23:59 Intake Total 981.67 / 981.67 120 / 120 Output Total 400 / 750 350 / 350 Balance 581.67 / 231.67 -230 / -230 General: Alert, No apparent distress HEENT: Atraumatic, Normocephalic Oral: Moist Mucosa, No Gingival or Mucosal Lesions/ Ulcerations Neck: No Nodes, Thyroid Normal Size and Texture Lungs: Clear to auscultation, Normal air movement, No rhonchi, No wheeze, No rales Cardiovascular: Regular rate, Regular Rhythm, Normal S1, Normal S2, No murmurs Abdomen: Bowel Sounds Present, Soft, Non Tender, Non-Distended, No Hepato-splenomegaly Extremities: No edema, No Calf Tenderness Skin: No rashes, No breakdown Musculoskeletal: No Tenderness to Palpation of Joints or Extremities, No Muscle Wasting Laboratory Results 04/13/20 04:40: WBC 6.5, RBC 3.53 L, Hgb 11.1 L, Hct 32.7 L, MCV 92.6, MCH 31.4, MCHC 33.9, RDW Std Deviation 43.8, RDW Coeff of Sharad 13.1, Plt Count 129 L, MPV 11.2 04/13/20 04:40: Sodium 136, Potassium 3.9, Chloride 107, Carbon Dioxide 24.0, Anion Gap 5, BUN 23 H, Creatinine 0.76, Estim Creat Clear Calc 38.36, Est GFR (MDRD) Af Amer 94, Est GFR (MDRD) Non-Af 78, BUN/Creatinine Ratio 30.4 H, Glucose 112 H, Calcium 8.3 L, Total Bilirubin 0.70, AST 146 H, ALT 33, Alkaline Phosphatase 44 L, Total Protein 5.8 L, Albumin 3.0 L, Globulin 2.8, Albumin/Globulin Ratio 1.1 Current Medications Acetaminophen (Acetaminophen 500 Mg Tablet) 1,000 mg PO QHS [facility] Last Admin: 04/12/20 20:04 Dose: 1,000 mg Documented by: Aspirin (Aspirin E.C. 81 Mg Tablet) 81 mg PO DAILY@0800 [facility] Last Admin: 04/13/20 08:30 Dose: 81 mg Documented by: Atorvastatin Calcium (Atorvastatin Calcium 40 Mg Tablet) 40 mg PO QHS [facility] Last Admin: 04/12/20 23:40 Dose: 40 mg Documented by: Atropine Sulfate (Atropine Sulfate 1 Mg/10 Ml Syringe) 0.5 mg IV UD PRN PRN Reason: HR <50 bpm Calcium Carbonate (Calcium Carbonate 500 Mg Tablet) 1,000 mg PO DAILY@0800 [facility] Last Admin: 04/13/20 08:30 Dose: 1,000 mg Documented by: Folic Acid (Folic Acid 1 Mg Tablet) 1 mg PO BIDCM [facility] Last Admin: 04/13/20 08:30 Dose: 1 mg Documented by: Heparin Sodium (Beef Lung) (Heparin Lock 500 Unit/5 Ml In 10 Ml Syringe) 500 unit IV UD PRN PRN Reason: HEPARIN FLUSH Sodium Chloride () 250 mls @ 15 mls/hr IV .[id number] PRN PRN Reason: Saline Flush Sodium Chloride () 250 mls @ 15 mls/hr IV .[id number] PRN PRN Reason: Additional IVPB Infusion Labetalol HCl (Labetalol (Prefilled) 20 Mg/4 Ml) 5 mg IV X1 PRN PRN Reason: SBP >160 when pulling sheath Stop: 04/14/20 10:18 Metoprolol Tartrate (Metoprolol Tartrate 25 Mg Tablet) 12.5 mg PO BID [facility] Last Admin: 04/13/20 09:16 Dose: 12.5 mg Documented by: Multivitamins ([facility],Therapeutic Tablet) [facility] Last Admin: 04/13/20 08:30 Dose: 1 tablet Documented by: Oxycodone HCl (Oxycodone 5 Mg Tablet) 5 mg PO Q4H PRN PRN PRN Reason: Pain Score 6-10 Last Admin: 04/12/20 23:37 Dose: 5 mg Documented by: Pantoprazole Sodium (Pantoprazole Sodium 40 Mg Tablet) 40 mg PO DAILY [facility] Last Admin: 04/13/20 09:16 Dose: 40 mg Documented by: Sodium Chloride (0.9% Normal Saline 500 Ml Iv.Soln.) 500 ml IV BOLUS PRN PRN Reason: VASO-VAGAL PROTOCOL Sodium Chloride (0.9% Saline Lock 10 Ml Syringe) 10 - 40 ml IV UD PRN PRN Reason: SALINE FLUSH Ticagrelor (Ticagrelor 90 Mg Tablet) 90 mg PO BID [facility] Last Admin: 04/13/20 09:15 Dose: 90 mg Documented by: STROKE Vital Signs/Narrative: Vital Signs Pulse Pulse Ox 04/13/20 09:16 60 04/13/20 08:00 91 04/13/20 07:54 99 Medical Necessity - Tobacco Use Smoking Status: Never smoker Assessment/Plan All Active Problems (Last Reviewed 04/12/20 @ 13:[address] Michael Sinclair, DO) Right-sided breast cancer status post (Resolved) Malignant neoplasm of right female breast (Acute) Left ankle swelling (Acute) Other specified peripheral vascular diseases (Ruled-out) Venous insufficiency (chronic) (peripheral) (Ruled-out) Contamination (Acute) STEMI (ST elevation myocardial infarction) (Acute) Atherosclerosis of coronary artery of [place] heart without angina pectoris (Acute) History of coronary artery stent placement (Acute 04/12/20) 1. STEMI s.p PCI to RCA on 04/12 on ASA, ticagrelor, statin 2. RA stable risk factor for CAD and PAD hold home medications for now, likely resume upon discharge 3. VTE prophylaxis: SCDs for now. Inpatient E&M: 15753 Subs Hosp L2
--- NOTE | 2020-04-13 12:00 | PCM.PN.CARD ---
Subjectve: Patient seen and evaluated today and discussed with the nursing staff She is comfortable in bed She complained of atypical chest pressure Did mention to me she is feeling much better since she had a cardiac procedure for STEMI/RCA PCI and stent. Patient is very alert orientated and was able to give a detailed history and aware about her medical condition Objective: Vital Signs Temp Pulse Resp BP Pulse Ox 97.8 F 60 15 102/46 L 99 04/13/20 07:30 04/13/20 09:16 04/13/20 07:30 04/13/20 07:30 04/13/20 07:54 Oxygen Delivery Method Room Air Weight: 142 lb 3.17 oz Body Mass Index (BMI) 23.3 Intake and Output for Last 24 Hours 04/11/20 04/12/20 04/13/20 23:59 23:59 23:59 Intake Total 981.67 / 981.67 360 / 360 Output Total 400 / 750 350 / 350 Balance 581.67 / 231.67 04/13/20 04:40: WBC 6.5, RBC 3.53 L, Hgb 11.1 L, Hct 32.7 L, MCV 92.6, MCH 31.4, MCHC 33.9, Plt Count 129 L, MPV 11.2 04/13/20 04:40: Sodium 136, Potassium 3.9, Chloride 107, Carbon Dioxide 24.0, Anion Gap 5, BUN 23 H, Creatinine 0.76, Est GFR (MDRD) Af Amer 94, Est GFR (MDRD) Non-Af 78, BUN/Creatinine Ratio 30.4 H, Glucose 112 H, Calcium 8.3 L, Total Bilirubin 0.70 Rhythm: EKG: ECHO: Stress Test: Cardiac Cath: PCI: CT Surgery: Holter monitor: EPS: PPM: CXR: Chest CT Scan: Medical Necessity - Tobacco Use Smoking Status: Never smoker Assessment/Plan 84-year-old patient, has CAD with STEMI Occluded proximal RCA underwent successful PCI and stent using drug-eluting stent by on review of the cardiac angiographic findings the left coronary system has no significant obstructive atherosclerosis Left ventriculogram performed in the [facility] showed LV function within normal with mild apical hypokinesia. Today I reviewed her current medication patient is stable from cardiac standpoint she remains in normal sinus rhythm. Would recommend to transfer to telemetry floor/PCU Cardiac recommendation is to continue dual antiplatelet therapy and the rest of her medication including statin And to follow-up with the lead infrastructure architect for continuation of cardiac care plan.
--- NOTE | 2020-04-13 14:29 | NURSING ---
Handoff nursing report to Rajani ROQUE. Primary RN sign off.
[2020-04-13] MEDS: Acetaminophen 500 MG Tablet 1000 MG PO (22:26)
[2020-04-13] MEDS: Atorvastatin Calcium 40 MG Tablet PO (22:27)
[2020-04-14 02:35] VITALS: BP 109/57; PULSE 55; RESP 16; TEMP 36.8; O2SAT 96
[2020-04-14 03:00] VITALS: PULSE 56
[2020-04-14 06:49] VITALS: PULSE 52
[2020-04-14 08:31] VITALS: BP 101/35; PULSE 57; RESP 14; TEMP 36.4; O2SAT 98
[2020-04-14] MEDS: Folic Acid 1 MG Tablet PO (08:33)
[2020-04-14 08:34] VITALS: PULSE 57
[2020-04-14] MEDS: Multivitamins,Therapeutic Tablet 1 TABLET PO (08:34)
[2020-04-14] MEDS: Pantoprazole Sodium 40 MG Tablet PO (08:34)
[2020-04-14] MEDS: Calcium Carbonate 500 MG Tablet 1000 MG PO (08:34)
[2020-04-14] MEDS: Aspirin E.C. 81 MG Tablet PO (08:34)
[2020-04-14] MEDS: TICAGRELOR 90 MG TABLET PO (08:34)
[2020-04-14] MEDS: Metoprolol Tartrate 25 MG Tablet 12.5 MG PO (08:34)
--- NOTE | 2020-04-14 10:00 | EKG12_ITS ---
Test Reason : POST PCI Blood Pressure : / mmHG Vent. Rate : 054 BPM Atrial Rate : 054 BPM P-R Int : 158 ms QRS Dur : 096 ms QT Int : 474 ms P-R-T Axes : 076 -48 087 degrees QTc Int : 449 ms Sinus bradycardia Left axis deviation T wave abnormality, consider lateral ischemia Abnormal ECG Confirmed by JO LOPES, JIMENEZ ([id number]), editor map HOPE CASANOVA ([id number]) on 04/16/2020 12:41:39 PM Referred By: LEWIS Confirmed By:JIMENEZ OSORIO MD
--- NOTE | 2020-04-14 10:18 | PCM.DC ---
- Discharge Diagnoses Current Active Problems: Current Active and Chronic Problems (Last Reviewed 04/12/20 @ 13:[address] Michael Sinclair, DO) Rheumatoid arthritis (Chronic) Osteopenia (Chronic) Malignant neoplasm of right female breast (Acute) History of malignant neoplasm of right breast (Chronic) Left ankle swelling (Acute) Non-pressure chronic ulcer of unspecified part of left lower leg with fat layer exposed (Chronic) Delayed wound healing (Chronic) Contamination (Acute) Colonization status (Chronic) STEMI (ST elevation myocardial infarction) (Acute) Atherosclerosis of coronary artery of [place] heart without angina pectoris (Acute) History of coronary artery stent placement (Acute 04/12/20) 3.00 x 32 Synergy MR FABIANA to mRCA 04/12/20 You will use the following diet at home:: Cardiac Discharge Activity: Return to Normal Activity - do not exert yourself. Scale back activity to no heavy lifting, walking at casual pace. No exercising at this time until you see cardiology. Call your doctor if you observe: Fever of 101 or Higher, Shortness of breath, Chest pain Instructions: Symptoms of a Heart Attack, Recognizing a Heart Attack or Angina, Taking Medications for Your Heart, Heart Attack, Exercise: Measuring Your Effort, Warning Signs of a Heart Attack, Heart Attack: Your Risk Factor Action Plan, Your Recovery Plan, Back at Home Allergies/Adverse Reactions: Allergies No Known Allergies Allergy (Verified 03/18/20 11:15) Medications to take at Discharge Folic Acid 1 mg PO BIDCM 02/07/13 Multivitamin [Daily Multiple Vitamin] 1 each PO DAILY #0 02/07/13 leucovorin tablet 5 mg PO QWEEK 04/02/16 Pantoprazole Sodium [Protonix] 40 mg PO DAILY 04/17/17 Calcium Carbonate [Tums] 1,000 mg PO DAILY@0800 10/26/18 Abatacept [Orencia] 750 mg IV 12/13/19 Methotrexate 100 mg PO QWEEK 12/13/19 Acetaminophen [Tylenol] 1,000 mg PO QHS 04/12/20 Aspirin E.C. [Ecotrin] 81 mg PO DAILY@0800 tablet 04/14/20 Atorvastatin Calcium [Lipitor] 40 mg PO QHS #30 tab 04/14/20 Lisinopril 2.5 mg PO DAILY #30 tab 04/14/20 Metoprolol Tartrate [Lopressor (beta kemal)] 12.5 mg PO BID #60 tab 04/14/20 Ticagrelor [Brilinta] 90 mg PO BID #60 tab 04/14/20 The following prescriptions were given: Ticagrelor [Brilinta] 90 mg PO BID #60 tab Transmission Status: Pending to [facility] Atorvastatin Calcium [Lipitor] 40 mg PO QHS #30 tab Transmission Status: Pending to [facility] Lisinopril 2.5 mg PO DAILY #30 tab Transmission Status: Pending to [facility] Metoprolol Tartrate [Lopressor (beta kemal)] 12.5 mg PO BID #60 tab Transmission Status: Pending to [facility] Orders to be completed after discharge: Phase II, Outpatient Cardiac Rehab Location: None Selected Primary Care Physician: Teagan Hall MD [Primary Care Provider] - Within 2 Weeks Test Results: Test results from this visit will be discussed in further detail at your follow-up appointment, if applicable. Please Follow Up With: Leena Serra MD When: 04/15/2020, already scheduled Please Follow Up With: Isela Fraser MD - cardiology When: 4-6 weeks Proposed Discharge Date: 04/14/20
--- NOTE | 2020-04-14 10:21 | PCM.DC.SUM ---
Discharge Date and Diagnosis - Problem List Patient Problems: Active and Suspected Problems (Last Reviewed 04/12/20 @ 13:[address] Michael Sinclair DO) Malignant neoplasm of right female breast (Acute) Left ankle swelling (Acute) 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 (Suspected) Contamination (Acute) 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 (Suspected) Osteomyelitis of left lower extremity (Suspected) STEMI (ST elevation myocardial infarction) (Acute) Atherosclerosis of coronary artery of [place] without angina pectoris (Acute) History of coronary artery stent placement (Acute 04/12/20) 3.00 x 32 Synergy MR FABIANA to mRCA 04/12/20 Date of Admission: 04/12/20 Date of Discharge: 04/14/20 - Primary Discharge Diagnosis Acute Problems: Active Problems (Last Reviewed 04/12/20 @ 13:[address] Michael Sinclair DO) Malignant neoplasm of right female breast (Acute) Left ankle swelling (Acute) Contamination (Acute) STEMI (ST elevation myocardial infarction) (Acute) Atherosclerosis of coronary artery of [place] without angina pectoris (Acute) History of coronary artery stent placement (Acute 04/12/20) 3.00 x 32 Synergy MR FABIANA to mRCA 04/12/20 Suspected Problems: Suspected Problems (Last Updated 04/12/20 @ 13:[address] Michael Sinclair DO) 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 (Suspected) 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 (Suspected) Osteomyelitis of left lower extremity (Suspected) - Secondary Discharge Diagnosis Chronic Problems: Chronic Problems (Last Updated 04/12/20 @ 13:[address] 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 Notified her daughter was concerned and patient was sent to the emergency room. EMS found patient had ST ovation's in inferior leads. Patient was taken to the [facility] and patient was found to have an occluded RCA. Patient did receive a stent to the RCA. Afterwards, patient has been feeling well. Patient does note some dyspnea with exertion but otherwise feels well. Patient was started on Brilinta, atorvastatin and aspirin. Patient will continue with those medications and follow-up with cardiology in the next coming weeks. Patient advised to scale back her activity. Patient was very active before this the patient was advised to scale back her activity and then advance those with cardiology guidance. [] Patient Problems: Active and Suspected Problems (Last Reviewed 04/12/20 @ 13:[address] Michael Sinclair, DO) Malignant neoplasm of right female breast (Acute) Left ankle swelling (Acute) 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 (Suspected) Contamination (Acute) 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 (Suspected) Osteomyelitis of left lower extremity (Suspected) STEMI (ST elevation myocardial infarction) (Acute) Atherosclerosis of coronary artery of [place] without angina pectoris (Acute) History of coronary artery stent placement (Acute 04/12/20) 3.00 x 32 Synergy MR FABIANA to mRCA 04/12/20 - Physical Exam Vitals/I&O's: Vital Signs Temp Pulse Resp BP Pulse Ox 36.4 C L 57 L 14 101/35 L 98 04/14/20 08:31 04/14/20 08:34 04/14/20 08:31 04/14/20 08:31 04/14/20 08:31 Oxygen Delivery Method Room Air Weight: 64.5 kg Body Mass Index (BMI) 23.3 Intake and Output for Last 24 Hours 04/12/20 04/13/20 04/14/20 23:59 23:59 23:59 Intake Total 981.67 / 981.67 1140 / 1640 700 / 700 Output Total 400 / 750 750 / 750 Balance 581.67 / 231.67 390 / 890 700 / 700 General: Alert, No apparent distress HEENT: Atraumatic, Normocephalic Neck: No Nodes, Thyroid Normal Size and Texture Lungs: Clear to auscultation, Normal air movement, No rhonchi, No wheeze, No rales Cardiovascular: Regular rate, Regular Rhythm, Normal S1, Normal S2, No murmurs Abdomen: Bowel Sounds Present, Soft, Non Tender, Non-Distended Current Medications Acetaminophen (Acetaminophen 500 Mg Tablet) 1,000 mg PO QHS [facility] Last Admin: 04/13/20 22:26 Dose: 1,000 mg Documented by: Aspirin (Aspirin E.C. 81 Mg Tablet) 81 mg PO DAILY@0800 [facility] Last Admin: 04/14/20 08:34 Dose: 81 mg Documented by: Atorvastatin Calcium (Atorvastatin Calcium 40 Mg Tablet) 40 mg PO QHS [facility] Last Admin: 04/13/20 22:27 Dose: 40 mg Documented by: Atropine Sulfate (Atropine Sulfate 1 Mg/10 Ml Syringe) 0.5 mg IV UD PRN PRN Reason: HR <50 bpm Calcium Carbonate (Calcium Carbonate 500 Mg Tablet) 1,000 mg PO DAILY@0800 [facility] Last Admin: 04/14/20 08:34 Dose: 1,000 mg Documented by: Folic Acid ([facility] Acid 1 Mg Tablet) [facility] Last Admin: 04/14/20 08:33 Dose: 1 mg Documented by: Heparin Sodium (Beef Lung) (Heparin Lock 500 Unit/5 Ml In 10 Ml Syringe) 500 unit IV UD PRN PRN Reason: HEPARIN FLUSH Sodium Chloride () 250 mls @ 15 mls/hr IV .[id number] PRN PRN Reason: Saline Flush Sodium Chloride () 250 mls @ 15 mls/hr IV .[id number] PRN PRN Reason: Additional IVPB Infusion Metoprolol Tartrate (Metoprolol Tartrate 25 Mg Tablet) 12.5 mg PO BID [facility] Last Admin: 04/14/20 08:34 Dose: 12.5 mg Documented by: Multivitamins (Multivitamins,Therapeutic Tablet) [facility] Last Admin: 04/14/20 08:34 Dose: 1 tablet Documented by: Oxycodone HCl (Oxycodone 5 Mg Tablet) 5 mg PO Q4H PRN PRN PRN Reason: Pain Score 6-10 Last Admin: 04/12/20 23:37 Dose: 5 mg Documented by: Pantoprazole Sodium (Pantoprazole Sodium 40 Mg Tablet) 40 mg PO DAILY [facility] Last Admin: 04/14/20 08:34 Dose: 40 mg Documented by: Sodium Chloride (0.9% Saline Lock 10 Ml Syringe) 10 - 40 ml IV UD PRN PRN Reason: SALINE FLUSH Ticagrelor (Ticagrelor 90 Mg Tablet) 90 mg PO BID [facility] Last Admin: 04/14/20 08:34 Dose: 90 mg Documented by: Discharge Diet: Low fat/ Low Cholesterol Discharge Activity: Return to Normal Activity - do not exert yourself. Scale back activity to no heavy lifting, walking at casual pace. No exercising at this time until you see cardiology. Call your doctor if you observe: Fever of 101 or Higher, Shortness of breath, Chest pain Home Medications: Medications to take at Discharge Folic Acid 1 mg PO BIDCM 02/07/13 Multivitamin [Daily Multiple Vitamin] 1 each PO DAILY #0 02/07/13 leucovorin tablet 5 mg PO QWEEK 04/02/16 Pantoprazole Sodium [Protonix] 40 mg PO DAILY 04/17/17 Calcium Carbonate [Tums] 1,000 mg PO DAILY@0800 10/26/18 Abatacept [Orencia] 750 mg IV 12/13/19 Methotrexate 100 mg PO QWEEK 12/13/19 Acetaminophen [Tylenol] 1,000 mg PO QHS 04/12/20 Aspirin E.C. [Ecotrin] 81 mg PO DAILY@0800 tablet 04/14/20 Atorvastatin Calcium [Lipitor] 40 mg PO QHS #30 tab 04/14/20 Lisinopril 2.5 mg PO DAILY #30 tab 04/14/20 Metoprolol Tartrate [Lopressor (beta soledad)] 12.5 mg PO BID #60 tab 04/14/20 Ticagrelor [Brilinta] 90 mg PO BID #60 tab 04/14/20 Following Prescriptions Were Given to Patient: Ticagrelor [Brilinta] 90 mg PO BID #60 tab Transmission Status: Pending to [facility] Atorvastatin Calcium [Lipitor] 40 mg PO QHS #30 tab Transmission Status: Pending to [facility] Lisinopril 2.5 mg PO DAILY #30 tab Transmission Status: Pending to [facility] Metoprolol Tartrate [Lopressor (beta soledad)] 12.5 mg PO BID #60 tab Transmission Status: Pending to [facility] Other Amb Orders: Phase II, Outpatient Cardiac Rehab Location: None Selected Primary Care Physician: Teagan Hall MD [Primary Care Provider] - Within 2 Weeks Please Follow Up With: Leena Serra MD When: 04/15/2020, already scheduled Please Follow Up With: Isela Fraser MD - cardiology When: 4-6 weeks Patient Instructions: Symptoms of a Heart Attack, Recognizing a Heart Attack or Angina, Taking Medications for Your Heart, Heart Attack, Exercise: Measuring Your Effort, Heart Attack: Your Risk Factor Action Plan, Warning Signs of a Heart Attack, Your Recovery Plan, Back at Home Disposition: Home Minutes spent on discharge:: 32 Patient Condition:: Fair Medical Necessity - Tobacco Use Smoking Status: Never smoker Meaningful Use Info Meaningful Use Diagnoses (Choose all that apply): AMI - AMI/Post PCI/Angioplasty Aspirin given w/in 24hrs of arrival?: Yes ASA at discharge?: Yes Antiplatelet Therapy at Discharge:: Yes Statins at discharge?: Yes Marek/ARB at discharge?: Yes Beta Soledad at discharge?: Yes Done w/ Acute VA measure.: Yes Documented LVEF (%): 65 Inpatient E&M: [id number] Disch Hosp
[2020-04-14 11:09] VITALS: O2SAT 98
== END 2020-04-14 11:47 | disposition home or self-care (01) | DRG 247 ==
LOC: ED 09:13 → ICU 09:18 → PCU 04-13 17:35
PROVIDERS: Specialist; Admitting Provider Internal Medicine Interventional Cardiology; Emergency Provider Emergency Medicine; PCP Family Medicine; Visit Provider Internal Medicine Interventional Cardiology
DX: I21.19 ST elevation (STEMI) myocardial infarction involving other coronary artery of inferior wall (principal); I25.10 Atherosclerotic heart disease of native coronary artery without angina pectoris; M06.9 Rheumatoid arthritis, unspecified; M85.80 Other specified disorders of bone density and structure, unspecified site; I87.2 Venous insufficiency (chronic) (peripheral); I25.2 Old myocardial infarction; M19.90 Unspecified osteoarthritis, unspecified site; Z85.3 Personal history of malignant neoplasm of breast
CPT/HCPCS: 80053; 85027; 92941; 93005; 93458; 97802; 99152; C1757; J7030; J7040; Q9967; A4216; C1725; C1769; C1874; C1887; C1894; C9606; J1327

== ENCOUNTER → 2020-04-15 11:02 | Outpatient (CLI) | payer MEDICARE, SELFPAY ==
[2020-04-12 10:42] VITALS: BMI 23.3
[2020-04-15 11:14] VITALS: BP 112/48; PULSE 62; RESP 16; TEMP 35.5; O2SAT 100; BMI 23.3
[2020-04-15] MEDS: 0.9 % NaCl (Sterile) Posiflush 10 mL IV (11:25)
[2020-04-15] MEDS: 0.9% NaCl Peripheral Flush Adult/Peds IV ×2 (11:28→12:21)
[2020-04-15 11:50] LABS: Absolute Lymphocyte Count 0.63 X10^3/uL (0.83-4.51); Absolute Neutrophil Count 4.3 X10^3/uL (2.0-7.7); Basophil# 0.02 X10^3/uL; Basophil% 0.3 % (0-1); Eosinophil# 0.04 X10^3/uL; Eosinophils% 0.7 % (0-5); Hematocrit 35.6 % (37-47); Lymphocyte # 0.63 X10^3/ul (4.0); Lymphocyte % 10.9 % (19-41); Mean Corp Hgb Conc 33.7 g/dL (32-36); Mean Corpuscular Hgb 31.9 pg (27.0-32.0); Mean Corpuscular Volume 94.7 fL (81-99); Mean Platelet Vol. 12.1 fl (6.2-12.0); Monocyte# 0.77 X10^3/uL; Monocyte% 13.3 % (0-10); NRBC Flagged by Analyzer 0 % (0-5); Neutrophil % 74.5 % (47-70); Platelet Count 143 K/mm3 (150-450); RBC Distribution Width CV 13.2 % (11.6-14.6); Red Blood Count 3.76 M/mm3 (4.2-5.4); White Blood Count 5.8 K/mm3 (4.4-11.0)
[2020-04-15 12:07] LABS: AST(SGOT) 39 U/L (15-37); Alanine Aminotransfer ALT/SGPT 32 U/L (13-56); Albumin, Serum 3.3 g/dL (3.2-5.0); Alkaline Phosphatase 53 U/L (45-117); Anion Gap 5 (5-15); BUN 24 mg/dL (7-18); BUN/Creat Ratio 29.6 RATIO (10-20); Calcium,Total 8.8 mg/dL (8.5-10.1); Chloride 111 mmol/L (98-107); Creatinine, Serum 0.81 mg/dL (0.55-1.02); EST Glomerular Filtration Rate 72 mL/min (>60); Est Glom Filt Rate - Afr Amer 87 mL/min (>60); Estimated Creatinine Clearance 47.35 ml/min; Globulin 3.3 g/dL (2.2-4.2); Glucose 113 mg/dL (74-106); LDH 369 U/L (84-246); Magnesium 1.6 mg/dL (1.6-2.6); Protein, Total 6.6 g/dL (6.4-8.2); Sodium Level 141 mmol/L (136-145)
[2020-04-15 19:46] LABS: Xtra Tube EP Lab EXTRA TUBE
== END ==
PROVIDERS: Internal Medicine Medical Oncology; PCP Family Medicine; Referring Provider Internal Medicine Rheumatology; Visit Provider Internal Medicine Rheumatology
DX: M85.80 Other specified disorders of bone density and structure, unspecified site (principal); M06.9 Rheumatoid arthritis, unspecified; M05.70 Rheumatoid arthritis with rheumatoid factor of unspecified site without organ or systems involvement; M50.30 Other cervical disc degeneration, unspecified cervical region; Z85.3 Personal history of malignant neoplasm of breast; Z79.899 Other long term (current) drug therapy
CPT/HCPCS: 96365; 36591; 80053; 83615; 83735; 84100; 85025; A4216; J0129

== ENCOUNTER → 2020-04-22 11:04 | Outpatient (CLI) | payer MEDICARE, SELFPAY ==
[2020-04-22 10:03] VITALS: BMI 22.8
[2020-04-22 11:34] LABS: Absolute Neutrophil Count 3.1 X10^3/uL (2.0-7.7); Basophil# 0.02 X10^3/uL; Basophil% 0.4 % (0-1); Eosinophil# 0.04 X10^3/uL; Eosinophils% 0.9 % (0-5); Hematocrit 39.6 % (37-47); Lymphocyte % 15.7 % (19-41); Mean Corp Hgb Conc 32.8 g/dL (32-36); Mean Corpuscular Hgb 31.2 pg (27.0-32.0); Monocyte# 0.55 X10^3/uL; Monocyte% 12.4 % (0-10); NRBC Flagged by Analyzer 0 % (0-5); Neutrophil # 3.13 X10^3/uL (2.7-7.7); Neutrophil % 70.4 % (47-70); Platelet Count 214 K/mm3 (150-450); RBC Distribution Width CV 13.1 % (11.6-14.6); RBC Distribution Width SD 45.1 fl (35.1-43.9); Red Blood Count 4.17 M/mm3 (4.2-5.4); White Blood Count 4.5 K/mm3 (4.4-11.0)
[2020-04-22 12:03] LABS: BNP,B-Type NATRIURETIC PEPTIDE 173.9 pg/mL (0-100)
== END ==
PROVIDERS: PCP Family Medicine; Referring Provider Nurse Practitioner Family; Visit Provider Nurse Practitioner Family
DX: I21.3 ST elevation (STEMI) myocardial infarction of unspecified site (principal); R06.00 Dyspnea, unspecified; I25.10 Atherosclerotic heart disease of native coronary artery without angina pectoris; M06.9 Rheumatoid arthritis, unspecified
CPT/HCPCS: 36415; 83880; 85025

== ENCOUNTER → 2020-05-08 06:33 | Outpatient (CLI) | payer MEDICARE, SELFPAY ==
[2020-04-22 10:03] VITALS: BMI 22.8
--- NOTE | 2020-05-08 06:37 | ECHOCS_ITS ---
Reason For Study: Dyspnea/SOB Procedure This was a 2D Doppler, Color Flow transthoracic echocardiogram. The study was technically limited. Contrast injection was performed. Exam performed in department. Left Ventricle Normal LV size. Segmental dysfunction with preserved ejection fraction (see wall motion). The estimated ejection fraction is 65 %. Diastolic function is indeterminate. Surprise : Akinetic. Right Ventricle Normal RV size. Normal systolic function. Atria The left atrium is mildly enlarged. The right atrium is mildly enlarged. No doppler evidence for ASD. Mitral Valve There is mild to moderate mitral annular calcification. Extension of the mitral annular calcification onto the base of the posterior mitral valve leaflet. Mild-Moderate (1-2+) mitral valve insufficiency. Tricuspid Valve Normal tricuspid valve. Trivial tricuspid valve insufficiency. Right ventricular systolic pressure estimated to be 27 mmHg. Aortic Valve Trisinus/trileaflet aortic valve. Mild focal aortic valve thickening. Pulmonic Valve The pulmonic valve is not well visualized. Mild (1+) pulmonic valve insufficiency. Great Vessels Normal sized aortic root. Pericardium/Pleural No pericardial effusion. Medication Diluted definity 5ml given slow IV push to enhance endocardial definition. MMode/2D Measurements & Calculations LVIDd: 4.0 cm IVSd: 1.2 cm Ao root diam: 3.1 cm LVIDs: 3.0 cm LVPWd: 1.3 cm RVDd: 3.3 cm FS: 26.1 % LAV(MOD-bp): 49.7 ml LA A4 area: 14.6 cm2 LA dimension(2D): 4.4 cm LAV(MOD-bp) Indexed: 29.5 ml/m2 LAV(MOD-sp2): 59.2 ml LAV(MOD-sp4): 35.4 ml RA A4 area: 25.0 cm2 Doppler Measurements & Calculations MV E max salbador: 81.9 cm/sec Lat Peak E' Salbador: 8.2 cm/sec Med Peak E' Salbador: 5.7 cm/sec MV A max salbador: 102.3 cm/sec E/E' lat: 10.0 E/E' med: 14.3 MV E/A: 0.80 Ao V2 max: 170.0 cm/sec LV V1 max: 94.4 cm/sec PA V2 max: 81.5 cm/sec Ao max P.6 mmHg LV V1 max P.6 mmHg Ao V2 mean: 121.2 cm/sec Ao mean P.4 mmHg Ao V2 VTI: 35.3 cm TR max salbador: 245.0 cm/sec TR max P.0 mmHg Interpretation Summary The study was technically limited. Contrast injection was performed. Segmental dysfunction with preserved ejection fraction (see wall motion). The estimated ejection fraction is 65 %. The left atrium is mildly enlarged. The right atrium is mildly enlarged. There is mild to moderate mitral annular calcification. Extension of the mitral annular calcification onto the base of the posterior mitral valve leaflet. Mild-Moderate (1-2+) mitral valve insufficiency. Trivial tricuspid valve insufficiency. Mild focal aortic valve thickening. Mild (1+) pulmonic valve insufficiency. Right ventricular systolic pressure estimated to be 27 mmHg. Diastolic function is indeterminate. Ordering Physician: Chucho Shane Referring Physician: Teagan Hall Performed By: Gianna Londono, BAHMAN, RVT
--- NOTE | 2020-05-08 09:22 | STRESSREP_ITS ---
Stress Test Report Date: 05-08-2020 Procedure: Pharmacologic stress nuclear imaging study Indications: Shortness of breath/dyspnea on exertion; CAD; status post PCI Consent: Per the patient Procedure: The patient underwent pharmacologic (Regadenoson) evaluation with a peak heart rate of 102 beats per minute (74%predicted maximal heart rate) and a peak blood pressure of 142/88 mmHg. The baseline ECG demonstrated normal sinus rhythm; incomplete right bundle branch block pattern; poor R wave progression; nonspecific ST/T wave abnormality. The peak pharmacologic ECG demonstrated no obvious ECG changes. There was an isolated PVC during recovery. There was no complaint of chest discomfort during pharmacologic infusion or recovery. The examination was discontinued secondary to completion of protocol. Impression: 1. Pharmacologic (Regadenoson) evaluation 2. Peak pharmacologic ECG with no obvious ECG changes. 3. There was an isolated PVC during recovery. 4. Nuclear images pending Myocardial perfusion imaging study: Technique: The patient was injected with 11.4 millicuries of technetium 99m Cardiolite and subsequently rest SPECT Cardiolite nuclear imaging was obtained in the horizontal long, vertical long, and short axis views. The patient underwent pharmacologic (Regadenoson) evaluation with a peak heart rate of 102 beats per minute (74% percent predicted maximal heart rate) and a peak blood pressure of 142/88 mmHg. The patient was injected with 33.5 millicuries of technetium 99m Cardiolite and subsequently stress SPECT Cardiolite nuclear imaging was obtained in the horizontal long, vertical long, and short axis views. A gated Cardiolite study at peak stress was obtained. Interpretation: Rest and stress SPECT Cardiolite nuclear imaging status post realignment, normalization, and attenuation correction demonstrate the appearance of extracardiac/gastrointestinal tracer uptake near the inferior segments as well as a small area of diminished tracer uptake near the apical segments which between the preattenuation and post attenuation images appears to suggest no significant change between rest and stress. There is end systolic thickening and brightening. The gated Cardiolite study demonstrates myocardial thickening and inward wall motion. The reported LVEF is 70%. Impression: 1. Rest and stress SPECT current nuclear imaging demonstrate myocardial perfusion changes appearing compatible with the effects of physiologic apical thinning with no myocardial perfusion changes considered diagnostic for associa emmanuelle stress-induced myocardial ischemia. 2. The gated Cardiolite study reports an LVEF of 70%. This note was generated with Dragon dictation software. It may contain incorrect words, spelling, and punctuation that were not noted in checking the note before signing.
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
--- NOTE | 2020-05-09 10:09 | PCM.CR.ITP ---
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 Maintain the individual as the primary focus of care. 2. To improve the patient's quality of life. 3. Identification of cardiac risk factors and provide cardiac risk factor management. 4. Enhance the psychosocial status of the patient. 5. Reconditioning enough to allow the patient to resume customary activities. 6. Control symptoms of cardiac disease Personal Goals: Initial Assessment: Improve energy level, Improve knowledge of cardiac disease, Improve muscle strength and endurance Scale for measuring improvement of personal goals: Enter appropriate number in Comments. 2 = Unchanged. 3 = Slightly Better. 4 = Moderate Improvement. 5 = Met my Goal - Diagnosis & Disease Process Outcomes/Goals: Pt IDs own risk factors & lifestyle modifications by Session 10, Verbalizes symptoms of angina & response by session 3. Plan/Interventions: Assist Pt to ID & engage in lifestyle modification to reduce CVD risk, Instruct on individual risk factors, Review symptoms of angina & emergency actions, Review secondary diagnosis & identify educational needs. - Safety Referral to Physical Therapy: No Referral to [facility] Case Management: No Fall Risk Assessed:: Yes Assistive Devices:: None Exercise - Initial Assessment - Visit Date of Eval: 05/09/20 Session #:: 0 - precardiac rehab evaluation Mets: Pre-: >5 METS for 30 minutes by discharge - Stress Test Date: 05/08/20 Protocol:: nuclear stress/Regadenoson protocol Resting HR (bpm):: 93 Maximum HR (bpm):: 99 Blood Pressure: 142/88 Maximum Blood Pressure: 132/70 MET LEVEL:: 1 - 0 EKG: sinus bradycardia - Physician Prescribed Exercise Modalities: Treadmill, Airdyne, NuStep, SciFit Frequency: 3x/week for 12 weeks [36 sessions] Intensity: 60-80% of age predicted maximum heart rate reserve METs - Progression 0.5-1.0 weekly:: Current METSs:: 2.0 Target Heart Rate:: 90-116 Maximum Excercise HR:: 99 Resting Blood Pressure: 132/70 Maximum Exercise Blood Pressure: 142/88 EKG Type: Sinus bradycardia Current Physical Activity or Exercising minutes: walking - Outcomes & Goals Goals:: Verbalizes understanding of THR, RPE & goal METS by session 6, Documents in home exercise log/reports 30 min aerobic 5 day/wk by DC, Demonstrates accurate pulse taking by DC - Intervention & Plan Exercise Program Goals: Instruct on MET level & personal MET goal, Show patient to take own pulse /validate performance until accurate, Instruct on home exercise - Physical Activity Home Exercise Physical Activity - Home Exercise: Safe Exercise, Warm-up, Self-monitoring, Cool-Down, Home Exercise > 30 min Daily, Sitting Time <3 hours/daily - Outcomes & Goals Outcomes/Goals: Demonstrates correct Warm-up/exercise Cool-Down (S3) if = 2.5 METs, Verbalizes symptoms of exercise intolerance by Session 3 (S3), Demonstrate safe equipment use (S3) & follows exercise prescrition (6) - Intervention & Plan Plan/Intervention: Instruct on symptoms of exercise intolerance & actions to take, Instruct & monitor on saf, Assess intial functional capacity & safety risk Nutrition - Initial Assessment - Program Goals Nutrition Program Goals: LDL <100 optimal. 100 - 129 Near optimal. 130 - 159 Borderline High. 160 - 189 High. Total Cholesterol <200 desirable. 200 - 239 Borderline High. >/= 240 High. HDL < 40 Low >/=60 High. Triglycerides <150 desirable. <199 optimal. VlDL 5 - 40. HgbA1C <7%. BMI <25 Patient has diagnosis of Hyperlipidemia (ICD E78)?: Yes Patient Health Questionnaire Initial Assessment 1. Little interest or pleasure in doing things: Not at all 2. Feeling down, depressed, or hopeless: Several days 3. Trouble falling or staying asleep, or sleeping too much: Several days 4. Feeling tired or having little energy: Several days 5. Poor appetite or overeating: Several days 6. Feeling bad about yourself -- or that you are a failure or have let yourself or your family down: Not at all 7. Trouble concentrating on things, such as reading the newspaper or watching television: Not at all 8. Moving or speaking so slowly that other people could have noticed. Or the opposite - being so fidgety or restless that you have been moving around a lot more than usual: Not at all 9. Thoughts that you would be better off , or of hurting yourself in some way: Not at all How difficult have these problems made it for you to do your work, take care of things at home, or get along with other people?: Not difficult at all Total Score: 4 EVELYN-Q SV Test - Statements CAD is a disease of the arteries in the heart: False Examples of risk factors for heart disease: True Angina is chest pain or discomfort: True The benefits of resistance training include: True Eating more meat and dairy products: False Anti-platelet medications such as aspirin are important: True The only effective way to manage stress: False An exercise warm-up slowly increases heart rate: I Don't Know Prepared, processed foods usually have high sodium: True Depression is common after a heart attack: True The statin medications lower cholesterol: True To control blood pressure, lower the amount of sodium: True If someone gets chest discomfort during walking: False Transfats are partially hydrogenated vegetable oils: True Sleep apnea that is not treated increases the risk: True To control cholesterol, one should become a vegetarian: False Someone knows if he/she is exercising at the right level: True Diabetes cannot be prevented with exercise & health eating: False Stress is a large risk for heart attack: True A diet that can help lower blood pressure is rich in: True - Total Score Total Correct Responses: 18 Self-Efficacy Initial Assessment We would like to know how confident you are in doing certain activities. Please select your confidence level for:: Select your confidence level for the following using the scale 1-10 where 1 is not at all confident and 10 is totally confident. Your score is the average of all 6 responses. Fatigue: How confident are you that you can keep the fatigue caused by your disease from interfering with the things you want to do? Select Number: 7 Physical Discomfort or Pain: How confident are you that you can keep the physical discomfort or pain of your disease from interfering with the things you want to do? Select Number: 6 Emotional Distress: How confident are you that you can keep the emotional distress caused by your disease from interfering with the things you want to do? Select Number: 6 Other Symptoms or Health Problems: How confident are you that you can keep other symptoms or health problems from interfering with the things you want to do? Select Number: 6 Different Tasks and Activities: How confident are you that you can do the different tasks and activities needed to manage your health condition so as to reduce your need to see a doctor? Select Number: 8 Medication: How confident are you that you can do things other than just taking medication to reduce how much your illness affects your everyday life? Select Number: 8 Total Score:: 6 Nutrition Survey - Nutrition Survey Instructions Scoring Instructions: Scoring is as follows: Yes = 1 points. No = 0 point. Patient score that is >/=12 is considered to be at potential nutritional risk and could benefit from a referral to a registered dietitian. - Nutrition Survey Initial Have you lost >10 lbs over the past 2 months without trying?: No Are you following a special diet at home for diabetes, low fat, or low salt?: No Are you interested in meeting with a dietitian for help understanding your diet?: No Do you eat less than 3 meals a day?: No Do you eat fatty meats (manjarrez, sausage, ribs, etc), fried foods, desserts, large amounts of salad dressings, margarine, butter, or cheese most days?: No Do you have food allergies? [Enter types in comment field]: No Do you eat in restaurants more than 3 times a week?: No Do you season food with salt, seasoning salt, or garlic salt?: No Do you used canned, boxed, frozen meals, or soups, seasoning packets?: No Total Score:: 0
[2020-05-09 10:44] VITALS: BP 114/60; PULSE 64; RESP 14; TEMP 36.5; O2SAT 98; BMI 26.2
[2020-05-09 11:35] VITALS: BP 132/70; BP 142/88
== END ==
PROVIDERS: PCP Family Medicine; Referring Provider Internal Medicine Cardiovascular Disease; Visit Provider Internal Medicine Cardiovascular Disease
DX: R06.02 Shortness of breath (principal); I21.3 ST elevation (STEMI) myocardial infarction of unspecified site; R06.00 Dyspnea, unspecified; I25.10 Atherosclerotic heart disease of native coronary artery without angina pectoris; M06.9 Rheumatoid arthritis, unspecified; Z95.5 Presence of coronary angioplasty implant and graft
CPT/HCPCS: 78452; 93017; 93306; A9500; Q9957; A4216; C8929; J2785

== ENCOUNTER → 2020-05-09 10:06 | Outpatient (CLI) | payer MEDICARE, SELFPAY ==
[2020-04-22 10:03] VITALS: BMI 22.8
== END ==
PROVIDERS: PCP Family Medicine; Referring Provider Internal Medicine Cardiovascular Disease; Visit Provider Internal Medicine Cardiovascular Disease
DX: M06.9 Rheumatoid arthritis, unspecified (principal)

== ENCOUNTER → 2020-05-15 09:17 | Outpatient (CLI) | payer MEDICARE, SELFPAY ==
[2020-03-18 11:08] VITALS: BMI 23.3
[2020-05-13 13:38] VITALS: BMI 23.1
[2020-05-15 09:36] VITALS: BMI 23.1
[2020-05-15] MEDS: 0.9% NaCl IVPB Med Flush (250 mL) 15 ML IV (09:58)
[2020-05-15] MEDS: 0.9% NaCl Peripheral Flush Adult/Peds IV (09:58)
== END ==
PROVIDERS: PCP Family Medicine; Referring Provider Internal Medicine Rheumatology; Visit Provider Internal Medicine Rheumatology
DX: M06.9 Rheumatoid arthritis, unspecified (principal); M05.70 Rheumatoid arthritis with rheumatoid factor of unspecified site without organ or systems involvement
CPT/HCPCS: 96365; J7050; A4216; J0129

== ENCOUNTER 2020-05-15 20:24 | Observation (INO) | payer MEDICARE, SELFPAY ==
[2020-05-15 09:36] VITALS: BMI 23.1
[2020-05-15 20:26] VITALS: BP 164/93; PULSE 96; RESP 16; TEMP 36.6; O2SAT 99; BMI 24.6
--- NOTE | 2020-05-15 20:29 | ED.RN ---
RN CALLED FOR EKG, PULLED OLD EKGS FOR
--- NOTE | 2020-05-15 20:47 | EKG12_ITS ---
Test Reason : CP Blood Pressure : / mmHG Vent. Rate : 092 BPM Atrial Rate : 092 BPM P-R Int : 192 ms QRS Dur : 098 ms QT Int : 294 ms P-R-T Axes : 069 -56 079 degrees QTc Int : 363 ms Sinus rhythm with Premature atrial complexes in a pattern of bigeminy Possible Left atrial enlargement Left axis deviation Incomplete right bundle branch block Nonspecific T wave abnormality Abnormal ECG Confirmed by LEWIS LOPES, SHELTON ([id number]), material expeditor HOPE CASANOVA ([id number]) on 05/20/2020 11:05:09 AM Referred By: YESICA Confirmed By:MARIE SAUCEDO MD
[2020-05-15 20:55] LABS: Absolute Lymphocyte Count 1.74 X10^3/uL (0.83-4.51); Absolute Neutrophil Count 2.6 X10^3/uL (2.0-7.7); Basophil# 0.03 X10^3/uL; Basophil% 0.6 % (0-1); Eosinophil# 0.06 X10^3/uL; Eosinophils% 1.2 % (0-5); Hematocrit 38.4 % (37-47); Lymphocyte # 1.74 X10^3/ul (4.0); Lymphocyte % 34.7 % (19-41); Mean Corp Hgb Conc 33.9 g/dL (32-36); Mean Corpuscular Hgb 31.6 pg (27.0-32.0); Mean Corpuscular Volume 93.2 fL (81-99); Mean Platelet Vol. 10.8 fl (6.2-12.0); Monocyte# 0.56 X10^3/uL; Monocyte% 11.2 % (0-10); NRBC Flagged by Analyzer 0 % (0-5); Neutrophil # 2.61 X10^3/uL (2.7-7.7); Neutrophil % 52.1 % (47-70); Platelet Count 166 K/mm3 (150-450); RBC Distribution Width CV 13.2 % (11.6-14.6); Red Blood Count 4.12 M/mm3 (4.2-5.4)
--- NOTE | 2020-05-15 21:08 | RAD_ITS ---
STUDY: X-RAY CHEST REASON FOR EXAM: Female, 84 years old. PALPITATIONS, CHEST DISCOMFORT, HX OF STEMI WITH STENT ONE MONTH AGO. TECHNIQUE: AP portable COMPARISON: None. FINDINGS: Lungs are mildly hyperinflated but clear. There are calcified densities in right hemithorax possibly representing granulomatous calcification or calcified pleural plaque en face. No pleural effusion or pneumothorax. Mediport catheter seen on the left with tip in distal superior vena cava. Normal size heart. Normal mediastinum and jessica. Normal visualized pulmonary arteries. Normal visualized aortic arch and descending thoracic aorta. Dorsal spine demonstrates degenerative change.. Normal visualized ribs, clavicles, and shoulders. There is no demonstrated abnormality of the visualized soft tissue structures of the upper abdomen. RAD/Chest 1 View (Portable) IMPRESSION: No acute cardiopulmonary pathology Electronically Signed: Keyur Farrell MD at 21:30 EST , Service support ,
[2020-05-15 21:18] LABS: Anion Gap 5 (5-15); BUN 14 mg/dL (7-18); BUN/Creat Ratio 16.4 RATIO (10-20); Calcium,Total 8.8 mg/dL (8.5-10.1); Chloride 108 mmol/L (98-107); Creatinine, Serum 0.85 mg/dL (0.55-1.02); EST Glomerular Filtration Rate 67 mL/min (>60); Est Glom Filt Rate - Afr Amer 82 mL/min (>60); Estimated Creatinine Clearance 41.48 ml/min; Glucose 135 mg/dL (74-106); Potassium 3.7 mmol/L (3.5-5.1); Sodium Level 140 mmol/L (136-145)
[2020-05-15 21:40] VITALS: BP 136/71; PULSE 85; RESP 17; O2SAT 96
--- NOTE | 2020-05-15 21:50 | ED.VIS.GEN ---
History of Present Illness Chief Complaint: Chest Pain Informant: Patient Onset: Today - JPTA Context: Sudden Onset - at rest Timing: Intermittent - x1, Lasts - 30-40 min Quality: lightheaded, weak Location: generalized Current Severity: gone Maximum Severity: Severe Worsened by: nothing Relieved by: nothing Associated Symptoms: nauseated, a little sob Narrative: 84-year-old female states she had a silent IN a month ago and had a stent placed when she arrived here at the hospital. She said she felt lightheaded and poor but did not have any chest discomfort. She has been doing well, taking her aspirin and clopidogrel. Today she felt suddenly very lightheaded, felt her heart racing, maybe felt a little short of breath as a result but mostly felt the palpitations and denies any tightness, heaviness, pressure, or other chest discomfort. She was feeling weak, she called 911 and upon EMS arrival, she started feeling better. Upon arrival to the ER her symptoms are resolved except she feels a little weak now, not as bad as a little earlier. - Past Medical History (1) Atherosclerosis of coronary artery of [place] heart without angina pectoris Status: Chronic Comment: Drug-eluting stent to mid RCA on 04/12/2020; (2) History of coronary artery stent placement Status: Chronic Comment: 3.00 x 32 Synergy MR FABIANA to mRCA 04/12/20 (3) Osteopenia Status: Chronic Past Medical History - Allergies and Home Meds Allergies/Adverse Reactions: Allergies ticagrelor [From Brilinta] Adverse Reaction (Severe, Verified 05/15/20 20:30) Severe dyspnea on exertion Primary Care Physician: Teagan Hall MD [Primary Care Provider] - Surgical History: mastectomy Lives: Alone Smoking Status: Never smoker Review of Systems General: Reports: Malaise. Denies: Chills, Fever, Sweats Eyes: Denies: Visual changes - bilaterally, Diplopia ENT: Denies: Rhinorrhea, Sore throat Cardiovascular: Reports: Heart racing. Denies: Chest pain Respiratory: Reports: Dyspnea - Very mild due to racing heartbeat according to patient. Denies: Cough, Dyspnea on exertion Gastrointestinal: Denies: Abdominal pain, Nausea, Vomiting, Diarrhea, Melena, Hematochezia Genitourinary: Denies: Dysuria, Hematuria, Frequency Musculoskeletal: Denies: Back pain, Swelling, Extremity Pain Skin: Denies: Rash, Wounds Neurological: Denies: Headache, Weakness, Numbness Physical Exam Vital Signs/Narrative: Vital Signs Temp Pulse Resp BP Pulse Ox 05/15/20 21:40 85 17 136/71 H 96 05/15/20 20:26 97.8 F 96 16 164/93 H 99 Inital Vital Signs reviewed: Yes General: Well nourished, Well developed, No Acute Distress - Well-appearing, conversive in full sentences Head: Normocephalic, Atraumatic Eyes: Perrl, EOMI ENT: Moist mucous membranes, No rhinorrhea Neck: Supple, Nontender Cardiovascular: Regular rate, Regular rhythm, No murmurs. Negative for: Tachycardia Respiratory: No distress, CTA bilaterally, Chest nontender Abdomen: Soft, Nontender, Nondistended, Normal bowel sounds Back: Nontender, Normal Inspection Extremities: Nontender, No edema. Negative for: Calf Tenderness Skin: Normal color, No rash, No Trauma Neurological: Alert, Oriented x3, Cranial nerves II-XII grossly intact, Normal Strength, Normal Sensation Psychological: Normal affect, Normal Mood Diagnostic/Tx/Re-eval Impressions Chest X-Ray 05/15/20 21:08 IMPRESSION: No acute cardiopulmonary pathology Electronically Signed: Keyur Farrell MD at 21:30 EST , Service support , 05/15/20 21:08 Chest 1 View (Portable) [RAD] Stat Laboratory Results 05/15/20 05/15/20 20:33 20:33 WBC 5.0 RBC 4.12 L Hgb 13.0 Hct 38.4 MCV 93.2 MCH 31.6 MCHC 33.9 RDW Std Deviation 45.0 H RDW Coeff of Sharad 13.2 Plt Count 166 MPV 10.8 Immature Gran % (Auto) 0.200 Neut % (Auto) 52.1 Lymph % (Auto) 34.7 Branch % (Auto) 11.2 H Eos % (Auto) 1.2 Baso % (Auto) 0.6 Absolute Neuts (auto) 2.6 Absolute Lymphs (auto) 1.74 Nucleated RBC % 0 Sodium 140 Potassium 3.7 Chloride 108 H Carbon Dioxide 27.0 Anion Gap 5 BUN 14 Creatinine 0.85 Estim Creat Clear Calc 41.48 Est GFR (MDRD) Af Amer 82 Est GFR (MDRD) Non-Af 67 BUN/Creatinine Ratio 16.4 Glucose 135 H Calcium 8.8 Troponin I 0.043 - Rhythm Strip Rhythm Strip: Sinus Rhythm Rate: 92 Ectopy: None - EKG Initial EKG Interpretation: Sinus Rhythm, S-T Elevation - V3-5 Prior: Unchanged - Medical Decision Making Patient was observed in the ED and had no telemetry events or recurrent symptoms. Her EKG is very concerning in leads V3-5, showing tombstoning but without any reciprocal changes. In looking back at her EKGs when she was admitted to the hospital for her acute event, including the initial EKG, they all look very similar to this 1. Her troponin returned negative as did the rest of her work-up in the ED. I discussed with cardiology Dr. Arevalo, he supported obtaining a 3-hour delta troponin, however the patient lives alone and given that it is late at night she was concerned about going home alone given the symptoms she had and prefers to stay as an observation. ED Disposition - Plan for ED Patient: Disposition: Acute Care [facility] Diagnosis: Palpitations, Near syncope
[2020-05-15 22:18] VITALS: BP 120/59; PULSE 97; RESP 15; O2SAT 97
[2020-05-15 23:13] VITALS: BP 136/65; PULSE 84; PULSE 89; RESP 15; RESP 17; TEMP 36.4; O2SAT 97; O2SAT 98
--- NOTE | 2020-05-15 23:23 | PCM.HP.STD ---
Problem List (1) Palpitations Status: Acute (2) Near syncope Status: Acute (3) Osteopenia Status: Chronic Qualifiers: Osteopenia location: thigh Laterality: right Qualified Code(s): M85.851 - Other specified disorders of bone density and structure, right thigh (4) History of malignant neoplasm of right breast Status: Chronic (5) Non-pressure chronic ulcer of unspecified part of left lower leg with fat layer exposed Status: Chronic (6) Delayed wound healing Status: Chronic (7) Colonization status Status: Chronic (8) Atherosclerosis of coronary artery of [place] heart without angina pectoris Status: Chronic Qualifiers: Coronary Disease-Associated Artery/Lesion type: [place] artery Qualified Code(s): I25.10 - Atherosclerotic heart disease of [place] coronary artery without angina pectoris Comment: Drug-eluting stent to mid RCA on 04/12/2020; (9) History of coronary artery stent placement Status: Chronic Comment: 3.00 x 32 Synergy MR FABIANA to [facility] 04/12/20 History of Present Illness Date of Admission: 05/15/20 Chief Complaint: near syncope The patient is a 84 year old F with a significant history of CAD status post stent; and rheumatoid arthritis who presents to the emergency department with near syncope. Associated with her symptoms is palpitations. Emergency department doctor discussed the case with cardiology on-call who recommended delta troponin. However patient felt uncomfortable to go home so patient will be observed in the hospital. Of note patient had a STEMI on 04/12/2020 and a stent was placed in her RCA for totally occluded RCA. At that time she had light headedness and blurry vision. Past Medical History Past Medical History (Chronic Problems): Chronic Problems (Last Reviewed 05/15/20 @ 23:[address] Matteo Anderson MD) Osteopenia (Chronic) History of malignant neoplasm of right breast (Chronic) Non-pressure chronic ulcer of unspecified part of left lower leg with fat layer exposed (Chronic) Delayed wound healing (Chronic) Colonization status (Chronic) Atherosclerosis of coronary artery of [place] heart without angina pectoris (Chronic) Drug-eluting stent to mid RCA on 04/12/2020; History of coronary artery stent placement (Chronic 04/12/20) 3.00 x 32 Synergy MR FABIANA to [facility] 04/12/20 Medical History: Medical History (Last Reviewed 05/15/20 @ 23:[address] Matteo Anderson MD) Osteopenia (Chronic) M85.80 History of malignant neoplasm of right breast (Chronic) Z85.3 Left ankle swelling (Inactive) M25.472 Non-pressure chronic ulcer of unspecified part of left lower leg with fat layer exposed (Chronic) L97.922 Delayed wound healing (Chronic) T14.8XXD 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 (Inactive) T84.7XXA Contamination (Inactive) Colonization status (Chronic) Z22.9 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 (Inactive) T84.7XXA Osteomyelitis of left lower extremity (Inactive) M86.9 STEMI (ST elevation myocardial infarction) (Inactive) I21.3 Atherosclerosis of coronary artery of [place] heart without angina pectoris (Chronic) I25.10 Drug-eluting stent to mid RCA on 04/12/2020; History of coronary artery stent placement (Chronic) Onset Date: 04/12/20 Z95.5 3.00 x 32 Synergy MR FABIANA to mRCA 04/12/20 Arthritis M19.90 Fx cervical vert NOS-closed S12.9XXA Fx clavicle S42.009A Malignant neoplasm of right female breast C50.911 Rheumatoid arthritis M06.9 Staph infection B95.8 ankle surgery Other specified peripheral vascular diseases I73.89 Venous insufficiency (chronic) (peripheral) I87.2 Allergies ticagrelor [From Brilinta] Adverse Reaction (Severe, Verified 05/15/20 20:30) Severe dyspnea on exertion Home Medications: Ambulatory Orders Medication Instructions Recorded Folic Acid 1 mg PO BIDCM 02/07/13 leucovorin tablet 5 mg PO QWEEK 04/02/16 Calcium Carbonate [Tums] 1,000 mg PO DAILY@0800 10/26/18 Abatacept [Orencia] 750 mg IV QMONTH 12/13/19 Methotrexate 100 mg PO QWEEK 12/13/19 Acetaminophen [Tylenol] 1,000 mg PO BID 04/12/20 Aspirin E.C. [Ecotrin] 81 mg PO DAILY@0800 tab 04/14/20 clopidogrel 75 mg tablet 75 mg PO DAILY #90 tab 05/10/20 atorvastatin 40 mg tablet 40 mg PO QHS #90 tab 05/13/20 isosorbide mononitrate 30 mg 30 mg PO DAILY #90 tab 05/13/20 tablet,extended release 24 hr metoprolol tartrate 25 mg tablet 25 mg PO BID #180 tab 05/13/20 Surgical History: Surgical History (Last Reviewed 05/15/20 @ 23:[address] Matteo Anderson MD) Presence of coronary angioplasty implant and graft Onset Date: ~04/12/20 Z95.5 3.00 x 32 Synergy MR FABIANA to mRCA 04/12/20 History of arthroplasty of left ankle Z98.890 October 2018 infection at repair site from previous year. (staph) Plate and screws removed, eileen placed. History of mastectomy Z90.10 History of tubal ligation Z98.51 Surgical History: mastectomy Lives: Alone Smoking Status: Never smoker - *Family History Maternal Family History: Family History (Last Reviewed 05/15/20 @ 23:[address] Matteo Anderson MD) Father Clotting disorder Heart disease Review of Systems Constitutional: Denies: Chills, Fever, Weight Change HEENT: Denies: Head Aches, Sinus Congestion, Sinus Drainage Cardiovascular: Reports: Palpitations. Denies: Chest Pain Respiratory: Denies: Cough, Shortness of breath at rest, Sputum production Gastrointestinal: Denies: Abdominal Pain, Nausea, Vomiting Genitourinary: Denies: Dysuria Musculoskeletal: Denies: Joint Pain, Joint Tenderness Skin: Denies: Rash, Wounds Neurological: Denies: Numbness, Tingling, Focal weakness Psychiatric: Denies: Anxiety, Depression, Homicidal Ideations, Suicidal Ideations Hematologic/ Lymphatic: Denies: Easy Bruising, Easy Bleeding VTE Information - Inpt Only VTE Present on Admission: No VTE Mechan Device Prophylaxis: SCD's VTE Pharm Prophylaxis ordered?: No Patient Problems: Active and Suspected Problems (Last Reviewed 05/15/20 @ 23:[address] Matteo Anderson MD) Palpitations (Acute) Near syncope (Acute) - Physical Exam Vitals/I&O's: Vital Signs Temp Pulse Resp BP Pulse Ox 97.6 F L 89 17 136/65 H 98 05/15/20 23:13 05/15/20 23:13 05/15/20 23:13 05/15/20 23:13 05/15/20 23:13 Oxygen Delivery Method Room Air Weight: 63.049 kg Body Mass Index (BMI) 24.6 General: Alert, Oriented x3, Cooperative HEENT: Atraumatic, PERRLA, EOMI, Normocephalic Neck: Supple, No JVD, Negative Carotid Bruits Lungs: Clear to auscultation, Normal air movement Cardiovascular: Regular rate, No murmurs Abdomen: Bowel Sounds Present, Soft, Non Tender Extremities: No edema, Capillary Refill Less than 3 Seconds Skin: No rashes, No breakdown Musculoskeletal: No Tenderness to Palpation of Joints or Extremities, - - Deformation and deviation of fingers of bilateral hands Neurological: Cranial nerves II-XII grossly intact Psych/Mental Status: Normal Affect, Appropriate Laboratory Results 05/15/20 20:33: WBC 5.0, RBC 4.12 L, Hgb 13.0, Hct 38.4, MCV 93.2, MCH 31.6, MCHC 33.9, RDW Std Deviation 45.0 H, RDW Coeff of Sharad 13.2, Plt Count 166, MPV 10.8, Immature Gran % (Auto) 0.200, Neut % (Auto) 52.1, Lymph % (Auto) 34.7, Atkinson % (Auto) 11.2 H, Eos % (Auto) 1.2, Baso % (Auto) 0.6, Absolute Neuts (auto) 2.6, Absolute Lymphs (auto) 1.74, Nucleated RBC % 0 05/15/20 20:33: Sodium 140, Potassium 3.7, Chloride 108 H, Carbon Dioxide 27.0, Anion Gap 5, BUN 14, Creatinine 0.85, Estim Creat Clear Calc 41.48, Est GFR (MDRD) Af Amer 82, Est GFR (MDRD) Non-Af 67, BUN/Creatinine Ratio 16.4, Glucose 135 H, Calcium 8.8, Troponin I 0.043 Assessment/Plan All Active Problems (Last Reviewed 05/15/20 @ 23:[address] Matteo Anderson MD) Palpitations (Acute) Near syncope (Acute) The patient is a 84 year old F with a significant history of CAD status post stent; and rheumatoid arthritis who presents to the emergency department with near syncope and palpitations in the setting of a STEMI requiring stenting of her RCA a month ago. Palpitations and near syncope. Initial troponin was negative. EKG with right bundle branch block. Trend troponin and placed on telemetry. Observe overnight CAD status post stent Aspirin and Plavix continued Imdur and metoprolol continued. Rheumatoid arthritis On Abatacept; methotrexate and folic acids. Tylenol continued. Hypertension Blood pressure is stable in regard to her age Imdur and metoprolol continued Trend blood pressure and adjust blood pressure medications. DVT prophylaxis Low risk on observation. SCD ordered. OBSV E&M: 21608 Initial observation care L2
[2020-05-15 23:58] VITALS: BMI 24.3
--- NOTE | 2020-05-15 23:58 | PCS.PANDOC ---
PANDEMIC DOCUMENTATION INITIATED: Date: 05/15/2020 Time: 4561
[2020-05-16] VITALS (11 sets, daily range): BP systolic 121–136; BP diastolic 57–83; PULSE 76–91; RESP 14–16; TEMP 36.6; O2SAT 94–100; BMI 24.3
[2020-05-16 03:41] LABS: Magnesium 1.8 mg/dL (1.6-2.6); Thyroid Stim Hormone (TSH) 2.87 uIU/mL (0.358-3.74)
[2020-05-16] MEDS: Acetaminophen 500 MG Tablet 1000 MG PO (10:13)
[2020-05-16] MEDS: Calcium Carbonate 500 MG Tablet 1000 MG PO (10:13)
[2020-05-16] MEDS: Isosorbide Mononitrate 30 MG Tablet PO (10:13)
[2020-05-16] MEDS: Aspirin E.C. 81 MG Tablet PO (10:13)
[2020-05-16] MEDS: Folic Acid 1 MG Tablet PO (10:13)
[2020-05-16] MEDS: Clopidogrel Bisulfate 75 MG Tablet PO (10:14)
[2020-05-16] MEDS: Metoprolol Tartrate 25 MG Tablet PO (10:14)
--- NOTE | 2020-05-16 11:37 | PCM.PROGNOTE ---
<RufusSri HELPER TEACHER - Last Filed: 05/16/20 11:46> Patient Problems: Active and Suspected Problems (Last Reviewed 05/15/20 @ 23:[address] Matteo Anderson MD) Palpitations (Acute) Near syncope (Acute) Subjective: Patient seen and examined. Denies further palpitations, dizziness/lightheadedness. Denies chest pain, shortness of breath. Patient requesting cardiology consult, consult placed. - Physical Exam Vitals/I&O's: Vital Signs Temp Pulse Resp BP Pulse Ox 97.8 F 78 14 136/63 H 99 05/16/20 10:11 05/16/20 10:56 05/16/20 10:11 05/16/20 10:29 05/16/20 10:11 Oxygen Delivery Method Room Air Weight: 137 lb 2.04 oz Body Mass Index (BMI) 24.3 Orthostatic Vital Signs Start: 05/16/20 10:27 Freq: q24h Status: Active Protocol: Activity Type Activity Date Activity User E-Sign Co-Sign Detail Recorded Client Recorded Date Recorded By Document 05/16/20 10:29 DS [id number] 05/16/20 10:36 DS 05/16/20 10:29 Orthostatic Vitals Standing -Blood Pressure (90/60-120/80) 123/61 H -Extremity Use Left Arm -Pulse Rate (60-100) 91 Sitting -Blood Pressure (90/60-120/80) 121/62 H -Extremity Use Left Arm -Pulse Rate (60-100) 86 Lying -Blood Pressure (90/60-120/80) 136/63 H -Extremity Use Left Arm -Pulse Rate (60-100) 88 Intake and Output for Last 24 Hours 05/14/20 05/15/20 05/16/20 23:59 23:59 23:59 Intake Total 100 / 100 Output Total 0 / 0 Balance 100 / 100 General: Alert, Oriented x3, Cooperative HEENT: Atraumatic, PERRLA, EOMI, Normocephalic Neck: Supple, No JVD, Negative Carotid Bruits Lungs: Clear to auscultation, Normal air movement Cardiovascular: Regular rate, No murmurs Abdomen: Bowel Sounds Present, Soft, Non Tender Extremities: No clubbing, No cyanosis, No edema, Capillary Refill Less than 3 Seconds Skin: No rashes, No breakdown Musculoskeletal: No Tenderness to Palpation of Joints or Extremities Neurological: Cranial nerves II-XII grossly intact, Neuro grossly intact Psych/Mental Status: Normal Affect, Anxious Laboratory Results 05/15/20 20:33: WBC 5.0, RBC 4.12 L, Hgb 13.0, Hct 38.4, MCV 93.2, MCH 31.6, MCHC 33.9, RDW Std Deviation 45.0 H, RDW Coeff of Sharad 13.2, Plt Count 166, MPV 10.8, Immature Gran % (Auto) 0.200, Neut % (Auto) 52.1, Lymph % (Auto) 34.7, Thurston % (Auto) 11.2 H, Eos % (Auto) 1.2, Baso % (Auto) 0.6, Absolute Neuts (auto) 2.6, Absolute Lymphs (auto) 1.74, Nucleated RBC % 0 05/15/20 20:33: Sodium 140, Potassium 3.7, Chloride 108 H, Carbon Dioxide 27.0, Anion Gap 5, BUN 14, Creatinine 0.85, Estim Creat Clear Calc 41.48, Est GFR (MDRD) Af Amer 82, Est GFR (MDRD) Non-Af 67, BUN/Creatinine Ratio 16.4, Glucose 135 H, Calcium 8.8, Troponin I 0.043 05/15/20 23:35: Troponin I 0.050 H 05/16/20 02:32: Magnesium 1.8, TSH 2.87 05/16/20 02:32: Troponin I 0.055 H Current Medications Acetaminophen (Acetaminophen 500 Mg Tablet) 1,000 mg PO BID [facility] Last Admin: 05/16/20 10:13 Dose: 1,000 mg Documented by: Aspirin (Aspirin E.C. 81 Mg Tablet) 81 mg PO DAILY@0800 [facility] Last Admin: 05/16/20 10:13 Dose: 81 mg Documented by: Atorvastatin Calcium (Atorvastatin Calcium 40 Mg Tablet) 40 mg PO QHS [facility] Calcium Carbonate (Calcium Carbonate 500 Mg Tablet) 1,000 mg PO DAILY@0800 [facility] Last Admin: 05/16/20 10:13 Dose: 1,000 mg Documented by: Clopidogrel Bisulfate (Clopidogrel Bisulfate 75 Mg Tablet) 75 mg PO DAILY [facility] Last Admin: 05/16/20 10:14 Dose: 75 mg Documented by: Folic Acid (Folic Acid 1 Mg Tablet) 1 mg PO DAILY@0800 [facility] Last Admin: 05/16/20 10:13 Dose: 1 mg Documented by: Isosorbide Mononitrate (Isosorbide Mononitrate 30 Mg Tablet) 30 mg PO DAILY [facility] Last Admin: 05/16/20 10:13 Dose: 30 mg Documented by: Leucovorin Calcium (Leucovorin 5 Mg Tablet) 5 mg PO QWEEK [facility] Metoprolol Tartrate (Metoprolol Tartrate 25 Mg Tablet) 25 mg PO BID [facility] Last Admin: 05/16/20 10:14 Dose: 25 mg Documented by: Ondansetron HCl (Ondansetron 4 Mg/2 Ml Vial) 4 mg IV Q8H PRN PRN PRN Reason: NAUSEA/VOMITING Sodium Chloride (0.9% Saline Lock 10 Ml Syringe) 10 - 40 ml IV UD PRN PRN Reason: SALINE FLUSH Medical Necessity - Tobacco Use Smoking Status: Never smoker Assessment/Plan All Active Problems (Last Reviewed 05/15/20 @ 23:[address] Matteo Anderson MD) Palpitations (Acute) Near syncope (Acute) 1. Indeterminate troponin, palpitations/near syncope-recent echo 05/08/2020 demonstrated an EF of 65%, mild to moderate mitral valve insufficiency, mild pulmonic valve insufficiency. Stress test on the same date demonstrated physiologic apical thinning with no myocardial perfusion changes. Few PVCs on telemetry, otherwise no arrhythmias. Discussed with Dr. Shane and Dr. Fraser. Possible repeat heart cath versus continued medical management and outpatient follow-up. 2. CAD with recent thrombectomy and FABIANA to RCA-continue aspirin, statin, Plavix, Imdur, metoprolol. 3. Hypertension-stable, continue Imdur, metoprolol. 4. Rheumatoid arthritis-on abatacept, methotrexate. DVT prophylaxis- Lovenox wv This patient was seen by WAYNE Gilbert under the supervision of Dr. Quiñones. <Ajith Quiñones - Last Filed: 05/16/20 14:03> - Physical Exam Vitals/I&O's: Vital Signs Temp Pulse Resp BP Pulse Ox 97.8 F 78 14 136/63 H 99 05/16/20 10:11 05/16/20 10:56 05/16/20 10:11 05/16/20 10:29 05/16/20 10:11 Oxygen Delivery Method Room Air Weight: 62.2 kg Body Mass Index (BMI) 24.3 Orthostatic Vital Signs Start: 05/16/20 10:27 Freq: q24h Status: Active Protocol: Activity Type Activity Date Activity User E-Sign Co-Sign Detail Recorded Client Recorded Date Recorded By Document 05/16/20 10:29 DS [id number] 05/16/20 10:36 DS 05/16/20 10:29 Orthostatic Vitals Standing -Blood Pressure (90/60-120/80) 123/61 H -Extremity Use Left Arm -Pulse Rate (60-100) 91 Sitting -Blood Pressure (90/60-120/80) 121/62 H -Extremity Use Left Arm -Pulse Rate (60-100) 86 Lying -Blood Pressure (90/60-120/80) 136/63 H -Extremity Use Left Arm -Pulse Rate (60-100) 88 Intake and Output for Last 24 Hours 05/14/20 05/15/20 05/16/20 23:59 23:59 23:59 Intake Total 100 / 100 Output Total 0 / 0 Balance 100 / 100 Laboratory Results 05/15/20 20:33: WBC 5.0, RBC 4.12 L, Hgb 13.0, Hct 38.4, MCV 93.2, MCH 31.6, MCHC 33.9, RDW Std Deviation 45.0 H, RDW Coeff of Sharad 13.2, Plt Count 166, MPV 10.8, Immature Gran % (Auto) 0.200, Neut % (Auto) 52.1, Lymph % (Auto) 34.7, Thurston % (Auto) 11.2 H, Eos % (Auto) 1.2, Baso % (Auto) 0.6, Absolute Neuts (auto) 2.6, Absolute Lymphs (auto) 1.74, Nucleated RBC % 0 05/15/20 20:33: Sodium 140, Potassium 3.7, Chloride 108 H, Carbon Dioxide 27.0, Anion Gap 5, BUN 14, Creatinine 0.85, Estim Creat Clear Calc 41.48, Est GFR (MDRD) Af Amer 82, Est GFR (MDRD) Non-Af 67, BUN/Creatinine Ratio 16.4, Glucose 135 H, Calcium 8.8, Troponin I 0.043 05/15/20 23:35: Troponin I 0.050 H 05/16/20 02:32: Magnesium 1.8, TSH 2.87 05/16/20 02:32: Troponin I 0.055 H 05/16/20 12:15: Troponin I 0.028 Current Medications Acetaminophen (Acetaminophen 500 Mg Tablet) 1,000 mg PO BID [facility] Last Admin: 05/16/20 10:13 Dose: 1,000 mg Documented by: Aspirin (Aspirin E.C. 81 Mg Tablet) 81 mg PO DAILY@0800 [facility] Last Admin: 05/16/20 10:13 Dose: 81 mg Documented by: Atorvastatin Calcium (Atorvastatin Calcium 40 Mg Tablet) 40 mg PO QHS [facility] Calcium Carbonate (Calcium Carbonate 500 Mg Tablet) 1,000 mg PO DAILY@0800 [facility] Last Admin: 05/16/20 10:13 Dose: 1,000 mg Documented by: Clopidogrel Bisulfate (Clopidogrel Bisulfate 75 Mg Tablet) 75 mg PO DAILY [facility] Last Admin: 05/16/20 10:14 Dose: 75 mg Documented by: Folic Acid (Folic Acid 1 Mg Tablet) 1 mg PO DAILY@0800 [facility] Last Admin: 05/16/20 10:13 Dose: 1 mg Documented by: Isosorbide Mononitrate (Isosorbide Mononitrate 30 Mg Tablet) 30 mg PO DAILY [facility] Last Admin: 05/16/20 10:13 Dose: 30 mg Documented by: Leucovorin Calcium (Leucovorin 5 Mg Tablet) 5 mg PO QWEEK [facility] Metoprolol Tartrate (Metoprolol Tartrate 25 Mg Tablet) 25 mg PO BID [facility] Last Admin: 05/16/20 10:14 Dose: 25 mg Documented by: Ondansetron HCl (Ondansetron 4 Mg/2 Ml Vial) 4 mg IV Q8H PRN PRN PRN Reason: NAUSEA/VOMITING Sodium Chloride (0.9% Saline Lock 10 Ml Syringe) 10 - 40 ml IV UD PRN PRN Reason: SALINE FLUSH Assessment/Plan This patient was seen in conjunction with WAYNE Gilbert . I have independently interviewed and examined the patient and reviewed pertinent historical, laboratory, and other data. Please refer to WAYNE Gilbert note for details of this patient's presentation, findings, and recommendations. I have reviewed ELIZABETH GilbertC note and concur with documented findings. In brief, patient is a an 84-year-old lady with past medical history significant for recent admission for ST segment elevation [place] for which patient underwent PCI with FABIANA to an occluded RCA on 04/12/2020 who presented with palpitations. Physical Examination: GENERAL: cooperative HEENT: Atraumatic; EYES; Anicteric, Normal Conjunctiva NECK; supple, normal thyroid, RESPIRATORY: Diminished to auscultation CARDIOVASCULAR: Regular S1 S2, GI: soft, normoactive bowel sounds, : No Renal angle tenderness; EXTREMITIES: No edema, no clubbing, MUSCULOSKELETAL: no muscle waisting NEURO: Awake; no lateralizing signs. SKIN: No Rash PSYCH; Flat affect Assessment: 1. Palpitations 2. Indeterminate troponin 3. Coronary artery disease with recent thrombectomy and FABIANA to an RCA lesion 4. Essential hypertension 5. Rheumatoid arthritis Recommendations: 1. I have discussed the results of my overview and impressions with the patient 2. Options for management were reviewed Advance planning; did discuss with the patient regarding advanced directives as well as CODE STATUS. Did explain the various scenarios involved ( FULL CODE, DNR CCA, DNR CCA with no intubation, and DNR CC and what each meant) patient elected full code with CPR and intubation if warranted. Order was placed. Time spent on discussion 18 minutes. OBSV E&M: 70648 Subsequent observation care L3 Procedures: 96765 Advncd Care Plan 30 Min
--- NOTE | 2020-05-16 12:01 | CASEMGMT ---
Patient has both a Healthcare Power of Yard Hostler and a Healthcare Living Will on file at [facility]. Her is listed as her Healthcare POA, however he is . Her Daughter Maya is her first alternate listed. Dahlia MAHER
--- NOTE | 2020-05-16 15:36 | PCM.DC ---
- Discharge Diagnoses Current Active Problems: Current Active and Chronic Problems (Last Reviewed 05/15/20 @ 23:[address] Matteo Anderson MD) Palpitations (Acute) Near syncope (Acute) Osteopenia (Chronic) History of malignant neoplasm of right breast (Chronic) Atherosclerosis of coronary artery of [place] heart without angina pectoris (Chronic) Drug-eluting stent to mid RCA on 04/12/2020; History of coronary artery stent placement (Chronic 04/12/20) 3.00 x 32 Synergy MR FABIANA to mRCA 04/12/20 You will use the following diet at home:: Cardiac Discharge Activity: Return to Normal Activity Call your doctor if you observe: Shortness of breath, Dizziness, Fainting spells, Chest pain, Increased palpitations (irregular heartbeat) Allergies/Adverse Reactions: Allergies ticagrelor [From Brilinta] Adverse Reaction (Severe, Verified 05/15/20 20:30) Severe dyspnea on exertion Medications to take at Discharge Folic Acid 1 mg PO BIDCM 02/07/13 leucovorin tablet 5 mg PO BRENNER 04/02/16 Calcium Carbonate [Tums] 1,000 mg PO DAILY@0800 10/26/18 Abatacept [Orencia] 750 mg IV QMONTH 12/13/19 Methotrexate 100 mg PO BRENNER 12/13/19 Acetaminophen [Tylenol] 1,000 mg PO BID 04/12/20 clopidogrel 75 mg tablet 75 mg PO DAILY #90 tab 05/10/20 Aspirin E.C. [Ecotrin] 81 mg PO DAILY@0800 05/16/20 Atorvastatin Calcium [Lipitor] 40 mg PO QHS 05/16/20 Metoprolol Tartrate 25 mg PO BID 05/16/20 Orders to be completed after discharge: Cardiac Holter Monitor, Set-Up [[facility]] Location: None Selected Primary Care Physician: Teagan Hall MD [Primary Care Provider] - Please follow up with your Primary Care Physician in: 1 Week Test Results: Test results from this visit will be discussed in further detail at your follow-up appointment, if applicable. Please Follow Up With: Sharad Londono NP, MANUFACTURING SR ENGINEER-C When: 1 Week Proposed Discharge Date: 05/16/20
--- NOTE | 2020-05-16 15:40 | DS.PCM_ITS ---
<Sri Hooper REHANGER - Last Filed: 05/16/20 15:50> Discharge Date and Diagnosis - Problem List Patient Problems: Active and Suspected Problems (Last Reviewed 05/15/20 @ 23:[address] Matteo Anderson MD) Palpitations (Acute) Near syncope (Acute) Date of Admission: 05/15/20 Date of Discharge: 05/16/20 - Primary Discharge Diagnosis Acute Problems: Active Problems (Last Reviewed 05/15/20 @ 23:[address] Matteo Anderson MD) 1. Indeterminate troponin, palpitations/near syncope 2. CAD with recent thrombectomy and FABIANA to RCA 3. Hypertension 4. Rheumatoid arthritis - Secondary Discharge Diagnosis Chronic Problems: Chronic Problems (Last Reviewed 05/15/20 @ 23:[address] 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 Fraser- Cardiology Operations: None Procedures: None Summary of Care Provided: The patient is a 84 year old F admitted 05/15/2020 due to near syncope and palpitations. 1. Indeterminate troponin, palpitations/near syncope-recent echo 05/08/2020 demonstrated an EF of 65%, mild to moderate mitral valve insufficiency, mild pulmonic valve insufficiency. Stress test on the same date demonstrated physiologic apical thinning with no myocardial perfusion changes. Few PVCs on telemetry, otherwise no arrhythmias. Enzymes did not trend. Discussed with Dr. Shane and Dr. Fraser. Home Imdur regimen discontinued. Patient will be discharged with 48-hour Holter monitor. Follow-up with cardiology in 1 week. 2. CAD with recent thrombectomy and FABIANA to RCA-continue aspirin, statin, Plavix, metoprolol. Imdur discontinued as noted above. 3. Hypertension-stable, continue Imdur, metoprolol. 4. Rheumatoid arthritis-on abatacept, methotrexate. General: Alert, Oriented x3, Cooperative HEENT: Atraumatic, PERRLA, EOMI, Normocephalic Neck: Supple, No JVD, Negative Carotid Bruits Lungs: Clear to auscultation, Normal air movement Cardiovascular: Regular rate, No murmurs Abdomen: Bowel Sounds Present, Soft, Non Tender Extremities: No clubbing, No cyanosis, No edema, Capillary Refill Less than 3 Seconds Skin: No rashes, No breakdown Musculoskeletal: No Tenderness to Palpation of Joints or Extremities Neurological: Cranial nerves II-XII grossly intact, Neuro grossly intact Psych/Mental Status: Normal Affect, Anxious Patient seen and examined prior to discharge. Physical assessment as noted above. Patient is stable for discharge with follow up recommendations as noted above. This patient was seen by WAYNE Gilbert under the supervision of Dr. Quiñones. Patient Problems: Active and Suspected Problems (Last Reviewed 05/15/20 @ 23:[address] Matteo Anderson MD) Palpitations (Acute) Near syncope (Acute) - Physical Exam Vitals/I&O's: Vital Signs Temp Pulse Resp BP Pulse Ox 97.9 F 77 14 129/69 H 98 05/16/20 15:10 05/16/20 15:10 05/16/20 15:10 05/16/20 15:10 05/16/20 15:10 Oxygen Delivery Method Room Air Weight: 137 lb 2.04 oz Body Mass Index (BMI) 24.3 Orthostatic Vital Signs Start: 05/16/20 10:27 Freq: q24h Status: Active Protocol: Activity Type Activity Date Activity User E-Sign Co-Sign Detail Recorded Client Recorded Date Recorded By Document 05/16/20 10:29 DS [id number] 05/16/20 10:36 DS 05/16/20 10:29 Orthostatic Vitals Standing -Blood Pressure (90/60-120/80) 123/61 H -Extremity Use Left Arm -Pulse Rate (60-100) 91 Sitting -Blood Pressure (90/60-120/80) 121/62 H -Extremity Use Left Arm -Pulse Rate (60-100) 86 Lying -Blood Pressure (90/60-120/80) 136/63 H -Extremity Use Left Arm -Pulse Rate (60-100) 88 Intake and Output for Last 24 Hours 05/14/20 05/15/20 05/16/20 23:59 23:59 23:59 Intake Total 420 / 420 Output Total 0 / 0 Balance 420 / 420 Laboratory Results 05/15/20 20:33: WBC 5.0, RBC 4.12 L, Hgb 13.0, Hct 38.4, MCV 93.2, MCH 31.6, MCHC 33.9, RDW Std Deviation 45.0 H, RDW Coeff of Sharad 13.2, Plt Count 166, MPV 10.8, Immature Gran % (Auto) 0.200, Neut % (Auto) 52.1, Lymph % (Auto) 34.7, [place] % (Auto) 11.2 H, Eos % (Auto) 1.2, Baso % (Auto) 0.6, Absolute Neuts (auto) 2.6, Absolute Lymphs (auto) 1.74, Nucleated RBC % 0 05/15/20 20:33: Sodium 140, Potassium 3.7, Chloride 108 H, Carbon Dioxide 27.0, Anion Gap 5, BUN 14, Creatinine 0.85, Estim Creat Clear Calc 41.48, Est GFR (MDRD) Af Amer 82, Est GFR (MDRD) Non-Af 67, BUN/Creatinine Ratio 16.4, Glucose 135 H, Calcium 8.8, Troponin I 0.043 05/15/20 23:35: Troponin I 0.050 H 05/16/20 02:32: Magnesium 1.8, TSH 2.87 05/16/20 02:32: Troponin I 0.055 H 05/16/20 12:15: Troponin I 0.028 Current Medications Acetaminophen (Acetaminophen 500 Mg Tablet) 1,000 mg PO BID [facility] Last Admin: 05/16/20 10:13 Dose: 1,000 mg Documented by: Aspirin (Aspirin E.C. 81 Mg Tablet) 81 mg PO DAILY@0800 [facility] Last Admin: 05/16/20 10:13 Dose: 81 mg Documented by: Atorvastatin Calcium (Atorvastatin Calcium 40 Mg Tablet) 40 mg PO QHS [facility] Calcium Carbonate (Calcium Carbonate 500 Mg Tablet) 1,000 mg PO DAILY@0800 [facility] Last Admin: 05/16/20 10:13 Dose: 1,000 mg Documented by: Clopidogrel Bisulfate (Clopidogrel Bisulfate 75 Mg Tablet) 75 mg PO DAILY [facility] Last Admin: 05/16/20 10:14 Dose: 75 mg Documented by: Folic Acid (Folic Acid 1 Mg Tablet) 1 mg PO DAILY@0800 [facility] Last Admin: 05/16/20 10:13 Dose: 1 mg Documented by: Isosorbide Mononitrate (Isosorbide Mononitrate 30 Mg Tablet) 30 mg PO DAILY [facility] Last Admin: 05/16/20 10:13 Dose: 30 mg Documented by: Leucovorin Calcium (Leucovorin 5 Mg Tablet) 5 mg PO QWEEK [facility] Metoprolol Tartrate (Metoprolol Tartrate 25 Mg Tablet) 25 mg PO BID [facility] Last Admin: 05/16/20 10:14 Dose: 25 mg Documented by: Ondansetron HCl (Ondansetron 4 Mg/2 Ml Vial) 4 mg IV Q8H PRN PRN PRN Reason: NAUSEA/VOMITING Sodium Chloride (0.9% Saline Lock 10 Ml Syringe) 10 - 40 ml IV UD PRN PRN Reason: SALINE FLUSH Discharge Diet: Low fat/ Low Cholesterol Discharge Activity: Return to Normal Activity Call your doctor if you observe: Shortness of breath, Dizziness, Fainting spells, Chest pain, Increased palpitations (irregular heartbeat) Home Medications: Medications to take at Discharge Folic Acid 1 mg PO BID 02/07/13 leucovorin tablet 5 mg PO 04/02/16 Calcium Carbonate [Tums] 1,000 mg PO DAILY@0810/26/18 Abatacept [Orencia] 750 mg IV QMONTH 12/13/19 Methotrexate 100 mg PO BRENNER 12/13/19 Acetaminophen [Tylenol] 1,000 mg PO BID 04/12/20 clopidogrel 75 mg tablet 75 mg PO DAILY #90 tab 05/10/20 Aspirin E.C. [Ecotrin] 81 mg PO DAILY@0800 05/16/20 Atorvastatin Calcium [Lipitor] 40 mg PO QHS 05/16/20 Metoprolol Tartrate 25 mg PO BID 05/16/20 Other Amb Orders: Cardiac Holter Monitor, Set-Up [[facility]] Location: None Selected Primary Care Physician: Teagan Hall MD [Primary Care Provider] - Please follow up with your Primary Care Physician in: 1 Week Please Follow Up With: Sharad Londono NP, REHANGER-C When: 1 Week Disposition: Home Minutes spent on discharge:: 35 Patient Condition:: Stable Medical Necessity - Tobacco Use Smoking Status: Never smoker Meaningful Use Info Meaningful Use Diagnoses (Choose all that apply): None applicable <Ajith Quiñones - Last Filed: 05/17/20 12:01> Discharge Date and Diagnosis - Primary Discharge Diagnosis Acute Problems: Active Problems (Last Reviewed 05/15/20 @ 23:[address] Matteo Anderson MD) Palpitations (Acute) Near syncope (Acute) - Secondary Discharge Diagnosis Chronic Problems: Chronic Problems (Last Reviewed 05/15/20 @ 23:[address] 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 I have independently interviewed and examined the patient and reviewed pertinent historical, laboratory, and other data. Please refer to WAYNE Gilbert note for details of this patient's presentation, findings, and recommendations. I have reviewed WAYNE Gilbert note and concur with documented findings. In brief, patient is a an 84-year-old lady with past medical history significant for recent admission for ST segment elevation [place] for which patient underwent PCI with FABIANA to an occluded RCA on 04/12/2020 who presented with palpitations. Assessment: 1. Palpitations 2. Indeterminate troponin 3. Coronary artery disease with recent thrombectomy and FABIANA to an RCA lesion 4. Essential hypertension 5. Rheumatoid arthritis Hospital course: As documented above - Physical Exam Vitals/I&O's: Vital Signs Temp Pulse Resp BP Pulse Ox 97.9 F 77 14 129/69 H 98 05/16/20 15:10 05/16/20 15:10 05/16/20 15:10 05/16/20 15:10 05/16/20 15:10 Oxygen Delivery Method Room Air Weight: 62.2 kg Body Mass Index (BMI) 24.3 Intake and Output for Last 24 Hours 05/15/20 05/16/20 05/17/20 23:59 23:59 23:59 Intake Total 420 / 420 Output Total 0 / 0 Balance 420 / 420 Laboratory Results 05/16/20 12:15: Troponin I 0.028 OBSV E&M: 14927 Observation care discharge
--- NOTE | 2020-05-16 16:04 | PCM.CONS.C ---
Reason for Consult Date of Consultation: 05/16/20 Reason for Consultation: Lightheadedness History of Present Illness: The patient is a 84 year old F [who presented to [facility] because of palpitations and lightheadedness. Patient states that she felt her heart racing and at that time felt lightheaded. She called her daughter and then called the EMS. By the time the EMS got to her she said that she was already feeling better. By the time she came to the emergency room she was feeling pretty much back to normal. However because she was worried about this happening again if she went home she was monitored overnight. She has not had any further symptoms while she has been in the hospital. Her telemetry has been unremarkable. Her troponin was 0.04, 0.05, 0.055, 0.028. Patient had presented last month with inferior ST elevation GA. At that time she had extreme fatigue. This time her symptoms were different. She underwent PCI to the RCA at that time. She was seen in the office between that hospitalization and now. Her Brilinta was switched to Plavix due to shortness of breath. Review of systems: All systems reviewed. All else is negative except that in the HPI.] Past Medical History Allergies/Adverse Reactions: Allergies ticagrelor [From Brilinta] Adverse Reaction (Severe, Verified 05/15/20 20:30) Severe dyspnea on exertion Home Medications: Ambulatory Orders Medication Instructions Recorded Folic Acid 1 mg PO BIDCM 02/07/13 leucovorin tablet 5 mg PO BRENNER 04/02/16 Calcium Carbonate [Tums] 1,000 mg PO DAILY@0810/26/18 Abatacept [Orencia] 750 mg IV QMONTH 12/13/19 Methotrexate 100 mg PO BRENNER 12/13/19 Acetaminophen [Tylenol] 1,000 mg PO BID 04/12/20 clopidogrel 75 mg tablet 75 mg PO DAILY #90 tab 05/10/20 Aspirin E.C. [Ecotrin] 81 mg PO DAILY@0800 05/16/20 Atorvastatin Calcium [Lipitor] 40 mg PO QHS 05/16/20 Metoprolol Tartrate 25 mg PO BID 05/16/20 Past Medical History (Chronic Problems): Chronic Problems (Last Reviewed 05/15/20 @ 23:[address] 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 Matteo Anderson MD) Father Clotting disorder Heart disease Lives: Alone Smoking Status: Never smoker Objective: Vital Signs Temp Pulse Resp BP Pulse Ox 97.9 F 77 14 129/69 H 98 05/16/20 15:10 05/16/20 15:10 05/16/20 15:10 05/16/20 15:10 05/16/20 15:10 Oxygen Delivery Method Room Air Weight: 137 lb 2.04 oz Body Mass Index (BMI) 24.3 Orthostatic Vital Signs Start: 05/16/20 10:27 Freq: q24h Status: Active Protocol: Activity Type Activity Date Activity User E-Sign Co-Sign Detail Recorded Client Recorded Date Recorded By Document 05/16/20 10:29 DS [id number] 05/16/20 10:36 DS 05/16/20 10:29 Orthostatic Vitals Standing -Blood Pressure (90/60-120/80) 123/61 H -Extremity Use Left Arm -Pulse Rate (60-100) 91 Sitting -Blood Pressure (90/60-120/80) 121/62 H -Extremity Use Left Arm -Pulse Rate (60-100) 86 Lying -Blood Pressure (90/60-120/80) 136/63 H -Extremity Use Left Arm -Pulse Rate (60-100) 88 Intake and Output for Last 24 Hours 05/14/20 05/15/20 05/16/20 23:59 23:59 23:59 Intake Total 420 / 420 Output Total 0 / 0 Balance 420 / 420 General: Awake, Alert, Oriented x 3 HEENT: Atraumatic Oral: Moist Mucosa Neck: Supple Lungs: Clear to auscultation Cardiovascular: Regular Rhythm Abdomen: Soft Extremities: No edema Skin: No Rashes Psych/Mental Status: Appropriate 05/15/20 20:33: WBC 5.0, RBC 4.12 L, Hgb 13.0, Hct 38.4, MCV 93.2, MCH 31.6, MCHC 33.9, Plt Count 166, MPV 10.8, Immature Gran % (Auto) 0.200, Neut % (Auto) 52.1, Lymph % (Auto) 34.7, [place] % (Auto) 11.2 H, Eos % (Auto) 1.2, Baso % (Auto) 0.6, Absolute Neuts (auto) 2.6, Nucleated RBC % 0 05/15/20 20:33: Sodium 140, Potassium 3.7, Chloride 108 H, Carbon Dioxide 27.0, Anion Gap 5, BUN 14, Creatinine 0.85, Est GFR (MDRD) Af Amer 82, Est GFR (MDRD) Non-Af 67, BUN/Creatinine Ratio 16.4, Glucose 135 H, Calcium 8.8, Troponin I 0.043 05/15/20 23:35: Troponin I 0.050 H 05/16/20 02:32: Magnesium 1.8 05/16/20 02:32: Troponin I 0.055 H 05/16/20 12:15: Troponin I 0.028 Rhythm: EKG: ECHO: Stress Test: Cardiac Cath: PCI: CT Surgery: Holter monitor: EPS: PPM: CXR: Chest CT Scan: Assessment/Plan 1. Palpitations: No arrhythmias documented as of now. Continue beta-kemal. Okay to discharge home on a 48-hour Holter. It will be reasonable to stop the Imdur. 2. Lightheadedness: Could be related to an arrhythmia which also caused the palpitations. Alternatively patient could have been hypotensive/dehydration. We will stop the Imdur, advised the patient to remain hydrated. We are also checking a 48-hour Holter. If that is unremarkable then we may consider a 30-day event monitor. 3. Coronary artery disease: Her presentation this time does not appear to be secondary to ACS. Continue present management.
== END 2020-05-16 15:37 | disposition home or self-care (01) ==
LOC: ED 23:05 → PCU 23:37
PROVIDERS: Nurse Practitioner Family; Admitting Provider Hospitalist; Emergency Provider Emergency Medicine; PCP Family Medicine; Visit Provider Internal Medicine
DX: R00.2 Palpitations (principal); R42 Dizziness and giddiness; R55 Syncope and collapse; I25.10 Atherosclerotic heart disease of native coronary artery without angina pectoris; I10 Essential (primary) hypertension; I25.2 Old myocardial infarction; I87.2 Venous insufficiency (chronic) (peripheral); I73.89 Other specified peripheral vascular diseases; M05.70 Rheumatoid arthritis with rheumatoid factor of unspecified site without organ or systems involvement; Z95.5 Presence of coronary angioplasty implant and graft; Z79.899 Other long term (current) drug therapy; Z79.02 Long term (current) use of antithrombotics/antiplatelets; Z79.82 Long term (current) use of aspirin
CPT/HCPCS: 36415; 71045; 80048; 83735; 84443; 84484; 85025; 93005; 99218; 99285; J7050; A4216; G0378; J0129

== ENCOUNTER 2020-05-31 11:30 | Outpatient (RCR) | payer MEDICARE, SELFPAY ==
[2020-05-09 11:39] VITALS: BMI 22.8
== END 2020-06-02 23:59 ==
LOC: CR 11:30
PROVIDERS: PCP Family Medicine; Visit Provider Internal Medicine Cardiovascular Disease
DX: I25.10 Atherosclerotic heart disease of native coronary artery without angina pectoris (principal); I25.2 Old myocardial infarction; Z95.5 Presence of coronary angioplasty implant and graft
CPT/HCPCS: 93798

== ENCOUNTER → 2020-06-12 12:59 | Outpatient (CLI) | payer MEDICARE, SELFPAY ==
[2020-05-13 13:38] VITALS: BMI 23.1
[2020-05-23 15:07] VITALS: BMI 24.6
[2020-06-07 08:50] VITALS: BMI 19.4
[2020-06-12 13:05] VITALS: BP 134/77; PULSE 86; RESP 16; TEMP 35.7; O2SAT 99
[2020-06-12] MEDS: 0.9% NaCl Peripheral Flush Adult/Peds IV ×2 (13:12→14:09)
[2020-06-12] MEDS: 0.9% NaCl IVPB Med Flush (250 mL) 15 ML IV (13:12)
== END ==
PROVIDERS: PCP Family Medicine; Referring Provider Internal Medicine Rheumatology; Visit Provider Internal Medicine Rheumatology
DX: M06.9 Rheumatoid arthritis, unspecified (principal)
CPT/HCPCS: 96365; J7050; A4216; J0129

== ENCOUNTER → 2020-06-24 10:32 | Outpatient (CLI) | payer MEDICARE, SELFPAY ==
[2020-06-07 08:50] VITALS: BMI 19.4
[2020-06-21 14:07] VITALS: BMI 23.3
[2020-06-24 11:35] LABS: Absolute Neutrophil Count 2.1 X10^3/uL (2.0-7.7); Basophil# 0.02 X10^3/uL; Basophil% 0.5 % (0-1); Eosinophil# 0.06 X10^3/uL; Eosinophils% 1.5 % (0-5); Hematocrit 40.4 % (37-47); Hemoglobin 12.9 g/dL (12.0-15.0); Lymphocyte % 32.8 % (19-41); Mean Corp Hgb Conc 31.9 g/dL (32-36); Mean Corpuscular Hgb 30.9 pg (27.0-32.0); Mean Corpuscular Volume 96.9 fL (81-99); Mean Platelet Vol. 11.2 fl (6.2-12.0); Monocyte# 0.53 X10^3/uL; Monocyte% 13.4 % (0-10); NRBC Flagged by Analyzer 0 % (0-5); Neutrophil # 2.05 X10^3/uL (2.7-7.7); Neutrophil % 51.8 % (47-70); Platelet Count 181 K/mm3 (150-450); RBC Distribution Width CV 13.8 % (11.6-14.6); RBC Distribution Width SD 49.6 fl (35.1-43.9); Red Blood Count 4.17 M/mm3 (4.2-5.4)
[2020-06-24 12:03] LABS: ALB/GLOB Ratio 1.1 RATIO (0.9-2.4); AST(SGOT) 16 U/L (15-37); Alanine Aminotransfer ALT/SGPT 22 U/L (13-56); Albumin, Serum 3.4 g/dL (3.2-5.0); Alkaline Phosphatase 51 U/L (45-117); Anion Gap 6 (5-15); BUN 24 mg/dL (7-18); BUN/Creat Ratio 31.9 RATIO (10-20); Calcium,Total 9.1 mg/dL (8.5-10.1); Chloride 105 mmol/L (98-107); Creatinine, Serum 0.75 mg/dL (0.55-1.02); EST Glomerular Filtration Rate 78 mL/min (>60); Est Glom Filt Rate - Afr Amer 94 mL/min (>60); Globulin 3.2 g/dL (2.2-4.2); Glucose 102 mg/dL (74-106); Potassium 3.9 mmol/L (3.5-5.1); Protein, Total 6.6 g/dL (6.4-8.2); Sodium Level 139 mmol/L (136-145)
== END ==
PROVIDERS: PCP Family Medicine; Referring Provider Internal Medicine Rheumatology; Visit Provider Internal Medicine Rheumatology
DX: M05.70 Rheumatoid arthritis with rheumatoid factor of unspecified site without organ or systems involvement (principal); M50.30 Other cervical disc degeneration, unspecified cervical region; I25.10 Atherosclerotic heart disease of native coronary artery without angina pectoris; Z79.899 Other long term (current) drug therapy; Z85.3 Personal history of malignant neoplasm of breast
CPT/HCPCS: 36415; 80053; 85025

== ENCOUNTER 2020-06-28 11:30 | Outpatient (RCR) | payer MEDICARE, SELFPAY ==
[2020-05-23 15:07] VITALS: BMI 24.6
--- NOTE | 2020-06-07 08:41 | PCM.CR.ITP ---
Exercise - 30-day Assessment - Visit Date of Eval: 06/07/20 Session #:: 9 - Physician Prescribed Exercise Modalities: Treadmill, Airdyne, NuStep Frequency: 3x/week for 12 weeks [36 sessions] Intensity: 60-80% of age predicted maximum heart rate reserve Current METSs:: 4.0 increase from 3.0 Target Heart Rate:: 90-116 Current RPE:: 10-12 Maximum Excercise HR:: 96 Resting Blood Pressure: 120/60 Maximum Exercise Blood Pressure: 130/56 EKG Type: NSR to sinus tach with rare PVC and rare PAC - Outcomes & Goals Goals:: Verbalizes understanding of THR, RPE & goal METS by session 6, Documents in home exercise log/reports 30 min aerobic 5 day/wk by DC, Demonstrates accurate pulse taking by DC - Intervention & Plan Exercise Program Goals: Instruct on personal THR & RPE, Instruct on MET level & personal MET goal, Show patient to take own pulse /validate performance until accurate, Instruct on home exercise - 30-day Reassessments 30 day Reassessments:: Progressing - Physical Activity Home Exercise Physical Activity - Home Exercise: Safe Exercise, Warm-up, Self-monitoring, Cool-Down, Home Exercise > 30 min Daily, Sitting Time <3 hours/daily - Outcomes & Goals Outcomes/Goals: Demonstrates correct Warm-up/exercise Cool-Down (S3) if = 2.5 METs, Verbalizes symptoms of exercise intolerance by Session 3 (S3), Demonstrate safe equipment use (S3) & follows exercise prescrition (6) - Intervention & Plan Plan/Intervention: Instruct warm-up & cool-down if exercising at > 2 METs, Instruct on symptoms of exercise intolerance & actions to take, Instruct & monitor on saf, Assess intial functional capacity & safety risk - 30-day Reassessments 30 day Reassessments:: Progressing Nutrition - 30-Day Assessment - Program Goals Nutrition Program Goals: LDL <100 optimal. 100 - 129 Near optimal. 130 - 159 Borderline High. 160 - 189 High. Total Cholesterol <200 desirable. 200 - 239 Borderline High. >/= 240 High. HDL < 40 Low >/=60 High. Triglycerides <150 desirable. <199 optimal. VlDL 5 - 40. HgbA1C <7%. BMI <25 Patient has diagnosis of Hyperlipidemia (ICD E78)?: Yes - Visit Date of Assessment:: 06/07/20 Session #:: 9 - Cholesterol/Lipids Determine presence & major risk factors that modify LDL goal: Hypertension or hypertensive medication, Age men > 45 years; women >/= 55 years Outcomes/Goals: Pt IDs own risk factors & lifestyle modifications by Session 10, Verbalizes symptoms of angina & response by session 3., Pt independently manages Intervention/Plan: Instruct on personal lipid levels & lipid goals/NCEP guidelines, Instruct on cholesterol Referral to dietitian:: Yes - Medical Nutrition Therapy - Diabetes (Other Core Measures) Diabetes Type: Not Applicable - Weight Mgt (Other Care) Not Applicable: Yes Height: 5 ft 11 in Weight:: 139 lb 8 oz BMI: 19.4 Diagnosis Overweight/Obesity BMI> 30% ICD-10 E66: No Diagnosis High BMI/Morbid Obesity BMI> 35% ICD-10 Z68: No Outcomes/Goals: Pt sets, maintains & shows weight loss goal & trend during rehab Intervention/Plan: Instruct on ideal BMI & set weight loss goal w/patient, Assist pt to ID & incorporate diet changes for weight loss by S9, Encourage goal of using 250-300dcal per session for weight loss 30 day Reassessments:: Progressing - Healthy Eating Habits Will attend diet classes:: Yes Outcomes/Goals:: Consume diet rich in vegs,fruits,whole grain/high fiber,fish,lean meat, Limit sat/trans fats,cholesterol & added salts & sugars Intervention/Plan:: Assess current eating habits 30-day Reassessments:: Progressing Medical- 30-Day Assessment - Visit Date of Eval: 06/07/20 Session #:: 9 - Medication Compliance Preventative Medication(s):: Aspirin, Clopidogrel/P2Y12 inhibit, Statin/lipid, Beta kemal H/O mental health issues: depression, anxiety, or addiction?: No Doesn?t believe in the benefits of treatment?: No Believes medications are unnecessary or harmful?: No Has a concern about medication side effects?: No Expresses concern over the cost of medications?: No Outcomes/Goals: Verbalizes medications,desired effect & common side effects @ DC, Pt self-reports following medication regimen, Keeps card in wallet w/medications listed by DC Interventions/plans: Instruct on medication effects & side effects, Review medication list w/patient every two weeks, Instruct importance of taking meds as ordered & assist problem solving 30-day Reassessments:: Progressing - Tobacco Use Tobacco Use: Non-smoker - Hypertension Hypertension Diagnosis:: Hypertension ICD-10 I10 Resting Blood Pressure:: 120/60 [place] [employer] Hypertension Guidelines: [place] [employer] Hypertension Guidelines. Normal BP Less than 120/80. Elevated BP 120/80. Hypertension Stage 1: BP 130-139/80-89. Hypertesnion Stage 2: BP 140 or higher/90 or higher. Hypertension Crisis: BP higher than 180/120 Peak Exercise Blood Pressure:: 130/56 Outcomes/Goals: Able to verbalize/achieve optimal blood pressure <130/80, Incorporates diet changes & exercise for blood pressure control by DC Interventions/plan: Instruct on optimal blood pressure, hypertension & medications, Instruct on effects of sodium, alcohol, stress, exercise &hypertension 30 day Reassessments:: Progressing - Tobacco Cessation Referral Smoking Cessation Referral:: No Individual Education/Counseling:: No Education Schedule Given:: Yes Psychosocial - 30-Day Assess - VIsit Date of Eval: 06/07/20 Session #:: 9 Not Applicable: Yes History of previous Mental disease:: No - Target Goals Target Goals: Assess presence or absence of depression. Using a valid screening tool, maximizes coping skills. Positive support system - Psychosocial Test Tool Used:: PHQ-9 Questionnaire phq-9 Severity: Severity. 1-4 Minimal Depression. 5-9 Mild Depression. 10-14 Moderate Depression. 15-19 Moderately Sever Depression. 20-27 Severe Depression. Rule: - Referral to Behavioral Health PS - Interventions: Yes Attend Stress Management Classes, No Referral to Behavioral Health if PHQ-9 score >9:, No Referral to [facility], No Referral to Physician if PHQ-9 if score is 5-9: - Outcomes/Goals: See list Psychosocial Outcomes/Goals:: ID's personal stressors & 2 strategies to manage stress by discharge - Intervention/Plan: See List Interventions/Plan:: Assess stressors,coping strategies & signs of derpression on admission, Instruct/assist pt to develop coping & personal stress Mgt strategies, Instruct patient to recognize signs & symptoms of depression, Instruct patient to recog - 30-day Reassessments: 30 day Reassessments:: Progressing Patient Health Questionnaire 30-Day Re-eval Assessment 1. Little interest or pleasure in doing things: Not at all 2. Feeling down, depressed, or hopeless: Several days 3. Trouble falling or staying asleep, or sleeping too much: Several days 4. Feeling tired or having little energy: Not at all 5. Poor appetite or overeating: Not at all 6. Feeling bad about yourself -- or that you are a failure or have let yourself or your family down: Not at all 7. Trouble concentrating on things, such as reading the newspaper or watching television: Not at all 8. Moving or speaking so slowly that other people could have noticed. Or the opposite - being so fidgety or restless that you have been moving around a lot more than usual: Not at all 9. Thoughts that you would be better off , or of hurting yourself in some way: Not at all How difficult have these problems made it for you to do your work, take care of things at home, or get along with other people?: Not difficult at all Total Score: 2 Self-Efficacy 30-Day Re-eval Assessment We would like to know how confident you are in doing certain activities. Please select your confidence level for:: Select your confidence level for the following using the scale 1-10 where 1 is not at all confident and 10 is totally confident. Your score is the average of all 6 responses. Fatigue: How confident are you that you can keep the fatigue caused by your disease from interfering with the things you want to do? Select Number: 8 Physical Discomfort or Pain: How confident are you that you can keep the physical discomfort or pain of your disease from interfering with the things you want to do? Select Number: 7 Emotional Distress: How confident are you that you can keep the emotional distress caused by your disease from interfering with the things you want to do? Select Number: 7 Other Symptoms or Health Problems: How confident are you that you can keep other symptoms or health problems from interfering with the things you want to do? Select Number: 7 Different Tasks and Activities: How confident are you that you can do the different tasks and activities needed to manage your health condition so as to reduce your need to see a doctor? Select Number: 8 Medication: How confident are you that you can do things other than just taking medication to reduce how much your illness affects your everyday life? Select Number: 9 Total Score:: 7
[2020-06-07 08:50] VITALS: BP 120/60; BP 130/56; BMI 19.4
== END 2020-06-30 23:59 ==
LOC: CR 11:30
PROVIDERS: PCP Family Medicine; Visit Provider Internal Medicine Cardiovascular Disease
DX: I25.10 Atherosclerotic heart disease of native coronary artery without angina pectoris (principal); I25.2 Old myocardial infarction; Z95.5 Presence of coronary angioplasty implant and graft
CPT/HCPCS: 93798

== ENCOUNTER 2020-07-01 06:33 | Outpatient (RCR) | payer MEDICARE, SELFPAY ==
[2020-06-07 08:50] VITALS: BMI 19.4
[2020-06-21 14:07] VITALS: BMI 23.3
[2020-07-01 00:31] VITALS: BP 120/60; BP 130/56
== END 2020-07-31 23:59 ==
LOC: CR 06:33
PROVIDERS: PCP Family Medicine; Visit Provider Internal Medicine Cardiovascular Disease
DX: I25.10 Atherosclerotic heart disease of native coronary artery without angina pectoris (principal); I25.2 Old myocardial infarction; M06.9 Rheumatoid arthritis, unspecified; Z95.5 Presence of coronary angioplasty implant and graft
CPT/HCPCS: 93798

== ENCOUNTER → 2020-07-02 13:02 | Outpatient (CLI) | payer MEDICARE, SELFPAY ==
[2020-04-22 10:03] VITALS: BMI 22.8
[2020-06-07 08:50] VITALS: BMI 19.4
[2020-06-21 14:07] VITALS: BMI 23.3
--- NOTE | 2020-07-02 13:03 | BI_ITS ---
MAMMOGRAPHY - UNILATERAL SCREENING: LEFT BREAST REASON FOR EXAM: Female, 84 years old. Routine annual screening examination (unilateral). PERTINENT HISTORY: Personal history of breast cancer. Prior right mastectomy with radiation treatment. Prior left stereotactic breast biopsy. Chronic inversion of the left nipple. TECHNIQUE: Digital unilateral breast giovanny (3D mammographic acquisition) in the CC and MLO projections. 2-D mediolateral oblique (MLO) and craniocaudad (CC) views of both breasts were obtained. CAD: Full Field Digital Mammography with Computer Added Detection was performed. COMPARISON: Comparison is made with prior study dated 06/30/2019 and 06/28/2018. FINDINGS: Breast Composition: The breasts are heterogeneously dense, which may obscure small masses. There are no dominant masses or suspicious calcifications. The port is seen in the upper medial portion of the left breast. 2 tissue markers are seen in the central portion of the left breast. Stable appearance of the secretory calcifications. No other significant abnormalities are identified. There has been no significant change since the prior study. BI/SCREEN MAMM (CAD) W/GIOVANNY UNI L IMPRESSION: Stable unilateral screening mammogram. Yearly follow-up mammogram recommended. (A) ASSESSMENT CATEGORY: BIRADS Category 2: Benign. A letter regarding these results will be sent to the patient by the facility within 30 days. Approximately 10% of breast cancers are not detected by mammography. A normal mammogram should not delay biopsy of a clinically suspicious abnormality. [id number] Electronically Signed: Aneudy Cardenas MD at 13:43 EST , Service support ,
--- NOTE | 2020-07-02 13:19 | BD_ITS ---
STUDY: DUAL ENERGY X-RAY ABSORPTIOMETRY / DXA REASON FOR EXAM: Female, 84 years old. 733.90OsteopeniaBONE DENSITY REASON FOR EXAM TECHNIQUE: Bone Mineral Density (BMD) measurements of lumbar spine and bilateral hips were obtained. COMPARISON: Comparison is made with prior study dated 06/28/2018. FINDINGS: Lumbar Spine (L1-L4): g/cm2 (1.397) / T-score (1.9) / Z-score (3.8) Findings are suggestive of normal bone density with a low fracture risk. Almost complete collapse of the T12 vertebrae. Left Femur Total: g/cm2 (0.949) / T-score (-0.5) / Z-score (1.7) Left Femoral Neck: g/cm2 (0.903) / T-score (-1.0) / Z-score (1.3) Right Femur Total: g/cm2 (0.845) / T-score (-1.3) / Z-score (0.9) Right Femoral Neck: g/cm2 (0.819) / T-score (-1.6) / Z-score (0.7) The T-Scores on the most recent prior examination were: Lumbar Spine (L1-L4): There has been improvement of bone density since the previous examination. Left Femur Total: which represents a worsening of 1.5%. Right Femur Total: which represents a worsening of 0.5%. BD/Dexa Bone Density Study IMPRESSION: The patient is considered osteopenic as outlined below according to World [place] Organization (WHO) criteria with a moderate fracture risk. There has been worsening of bone density since the previous examination. Reference Information: The T-score is the number of standard deviations above or below the standard which is normal for young adults at their peak bone mineral density. The World Health Organization (WHO) interprets the T-scores as follows: Above -1 Normal bone density Between -1 and -2.5 Osteopenia Equal to / or below -2.5 Osteoporosis As a practical clinical guideline, osteopenia may be graded as follows: Mild -1 through -1.5 Moderate -1.6 through -2.0 Severe -2.1 through -2.4 The Z-score is the number of standard deviations above or below age-matched controls. A Z-score of less than -1.5 would be considered abnormal. References: 1. NIH Osteoporosis and Related Bone Diseases www osteo.org 2. International Society for Clinical Densitometry www iscd.org 3. National Osteoporosis Foundation www nof.org Electronically Signed: Aneudy Cardenas MD at 14:34 EST , Service support ,
== END ==
PROVIDERS: PCP Family Medicine; Referring Provider Internal Medicine Medical Oncology; Visit Provider Internal Medicine Medical Oncology
DX: Z12.31 Encounter for screening mammogram for malignant neoplasm of breast (principal); M85.80 Other specified disorders of bone density and structure, unspecified site; M06.9 Rheumatoid arthritis, unspecified; M85.89 Other specified disorders of bone density and structure, multiple sites; Z85.3 Personal history of malignant neoplasm of breast
CPT/HCPCS: 77063; 77067; 77080; 96365

== ENCOUNTER → 2020-07-10 13:07 | Outpatient (CLI) | payer MEDICARE, SELFPAY ==
[2020-05-23 15:07] VITALS: BMI 24.6
[2020-06-07 08:50] VITALS: BMI 19.4
[2020-06-21 14:07] VITALS: BMI 23.3
[2020-07-10 13:22] VITALS: BP 109/60; PULSE 78; RESP 16; TEMP 36.8; O2SAT 98; BMI 23.3
[2020-07-10] MEDS: 0.9% NaCl IVPB Med Flush (250 mL) 15 ML IV (13:48)
== END ==
PROVIDERS: PCP Family Medicine; Referring Provider Internal Medicine Rheumatology; Visit Provider Internal Medicine Rheumatology
DX: M06.9 Rheumatoid arthritis, unspecified (principal); M05.70 Rheumatoid arthritis with rheumatoid factor of unspecified site without organ or systems involvement
CPT/HCPCS: 96365; J7050; J0129

== ENCOUNTER → 2020-08-07 10:47 | Outpatient (CLI) | payer MEDICARE, SELFPAY ==
[2020-06-07 08:50] VITALS: BMI 19.4
[2020-06-21 14:07] VITALS: BMI 23.3
[2020-07-10 13:22] VITALS: BMI 23.3
[2020-08-07 11:01] VITALS: BP 121/60; PULSE 66; RESP 16; TEMP 35.8; O2SAT 98; BMI 23.3
[2020-08-07] MEDS: 0.9% NaCl IVPB Med Flush (250 mL) 15 ML IV (11:50)
[2020-08-07] MEDS: 0.9% NaCl Peripheral Flush Adult/Peds IV (12:35)
== END ==
PROVIDERS: PCP Family Medicine; Referring Provider Internal Medicine Rheumatology; Visit Provider Internal Medicine Rheumatology
DX: M06.9 Rheumatoid arthritis, unspecified (principal)
CPT/HCPCS: 96365; J7050; A4216; J0129

== ENCOUNTER → 2020-09-06 11:19 | Outpatient (CLI) | payer MEDICARE, SELFPAY ==
[2020-06-07 08:50] VITALS: BMI 19.4
[2020-07-10 13:22] VITALS: BMI 23.3
[2020-08-07 11:01] VITALS: BMI 23.3
[2020-09-06 11:39] VITALS: BP 125/44; PULSE 67; RESP 16; TEMP 36.2; O2SAT 100; BMI 22.6
[2020-09-06] MEDS: 0.9% NaCl IVPB Med Flush (250 mL) 15 ML IV (11:43)
[2020-09-06] MEDS: 0.9% NaCl Peripheral Flush Adult/Peds IV (12:44)
[2020-09-06 12:46] VITALS: BP 146/63; PULSE 66; RESP 16; TEMP 36.6; O2SAT 100
== END ==
PROVIDERS: PCP Family Medicine; Referring Provider Internal Medicine Rheumatology; Visit Provider Internal Medicine Rheumatology
DX: M06.9 Rheumatoid arthritis, unspecified (principal)
CPT/HCPCS: 96365; J7050; A4216; J0129

== ENCOUNTER → 2020-09-18 13:11 | Outpatient (CLI) | payer MEDICARE, SELFPAY ==
[2020-06-07 08:50] VITALS: BMI 19.4
[2020-09-06 11:39] VITALS: BMI 22.6
[2020-09-18 15:02] LABS: Absolute Lymphocyte Count 1.75 X10^3/uL (0.83-4.51); Absolute Neutrophil Count 2.7 X10^3/uL (2.0-7.7); Basophil# 0.02 X10^3/uL; Basophil% 0.4 % (0-1); Eosinophil# 0.03 X10^3/uL; Eosinophils% 0.6 % (0-5); Hematocrit 39.1 % (37-47); Hemoglobin 12.6 g/dL (12.0-15.0); Lymphocyte # 1.75 X10^3/ul (0.83-4.51); Lymphocyte % 35.2 % (19-41); Mean Corp Hgb Conc 32.2 g/dL (32-36); Mean Corpuscular Hgb 31.1 pg (27.0-32.0); Mean Corpuscular Volume 96.5 fL (81-99); Mean Platelet Vol. 11.4 fl (6.2-12.0); Monocyte% 10.1 % (0-10); NRBC Flagged by Analyzer 0 % (0-5); Neutrophil # 2.66 X10^3/uL (2.7-7.7); Neutrophil % 53.5 % (47-70); Platelet Count 191 K/mm3 (150-450); RBC Distribution Width CV 12.8 % (11.6-14.6); RBC Distribution Width SD 45.6 fl (35.1-43.9); Red Blood Count 4.05 M/mm3 (4.2-5.4)
[2020-09-18 15:21] LABS: ALB/GLOB Ratio 1.1 RATIO (0.9-2.4); AST(SGOT) 23 U/L (15-37); Alanine Aminotransfer ALT/SGPT 26 U/L (13-56); Albumin, Serum 3.4 g/dL (3.2-5.0); Alkaline Phosphatase 62 U/L (45-117); Anion Gap 6 (5-15); BUN 20 mg/dL (7-18); BUN/Creat Ratio 23.3 RATIO (10-20); Calcium,Total 9.2 mg/dL (8.5-10.1); Chloride 106 mmol/L (98-107); Creatinine, Serum 0.86 mg/dL (0.55-1.02); EST Glomerular Filtration Rate 67 mL/min (>60); Est Glom Filt Rate - Afr Amer 81 mL/min (>60); Globulin 3.2 g/dL (2.2-4.2); Glucose 126 mg/dL (74-106); Potassium 3.8 mmol/L (3.5-5.1); Protein, Total 6.6 g/dL (6.4-8.2); Sodium Level 140 mmol/L (136-145)
== END ==
PROVIDERS: PCP Family Medicine; Referring Provider Internal Medicine Rheumatology; Visit Provider Internal Medicine Rheumatology
DX: M05.70 Rheumatoid arthritis with rheumatoid factor of unspecified site without organ or systems involvement (principal); M50.30 Other cervical disc degeneration, unspecified cervical region; I25.10 Atherosclerotic heart disease of native coronary artery without angina pectoris; Z79.899 Other long term (current) drug therapy; Z85.3 Personal history of malignant neoplasm of breast
CPT/HCPCS: 36415; 80053; 85025

== ENCOUNTER → 2020-10-08 12:07 | Outpatient (CLI) | payer MEDICARE, SELFPAY ==
[2020-06-07 08:50] VITALS: BMI 19.4
[2020-10-08 11:31] VITALS: BMI 22.6
[2020-10-08 12:53] LABS: BNP,B-Type NATRIURETIC PEPTIDE 255.9 pg/mL (0-100)
== END ==
PROVIDERS: PCP Family Medicine; Referring Provider Physician Assistant Medical; Visit Provider Physician Assistant Medical
DX: R06.02 Shortness of breath (principal)
CPT/HCPCS: 36415; 83880

== ENCOUNTER → 2020-10-09 10:49 | Outpatient (CLI) | payer MEDICARE, SELFPAY ==
[2020-06-07 08:50] VITALS: BMI 19.4
[2020-08-07 11:01] VITALS: BMI 23.3
[2020-10-08 11:31] VITALS: BMI 22.6
[2020-10-09 11:01] VITALS: BP 133/50; PULSE 71; RESP 16; TEMP 36.6; O2SAT 99; BMI 22.6
[2020-10-09] MEDS: 0.9% NaCl IVPB Med Flush (250 mL) 15 ML IV (11:30)
== END ==
PROVIDERS: PCP Family Medicine; Referring Provider Internal Medicine Rheumatology; Visit Provider Internal Medicine Rheumatology
DX: M06.9 Rheumatoid arthritis, unspecified (principal)
CPT/HCPCS: 96365; J7050; A4216; J0129

== ENCOUNTER → 2020-10-16 08:49 | Outpatient (CLI) | payer MEDICARE, SELFPAY ==
[2020-06-07 08:50] VITALS: BMI 19.4
[2020-10-11 11:20] VITALS: BMI 22.6
[2020-10-16 15:32] LABS: Anion Gap 7 (5-15); BUN 23 mg/dL (7-18); BUN/Creat Ratio 25.4 RATIO (10-20); Calcium,Total 9.2 mg/dL (8.5-10.1); Chloride 103 mmol/L (98-107); EST Glomerular Filtration Rate 63 mL/min (>60); Est Glom Filt Rate - Afr Amer 76 mL/min (>60); Glucose 111 mg/dL (74-106); Sodium Level 139 mmol/L (136-145)
== END ==
PROVIDERS: PCP Family Medicine; Referring Provider Physician Assistant Medical; Visit Provider Physician Assistant Medical
DX: R06.00 Dyspnea, unspecified (principal)
CPT/HCPCS: 36415; 80048

== ENCOUNTER → 2020-10-23 06:55 | Outpatient (CLI) | payer MEDICARE, SELFPAY ==
[2020-06-07 08:50] VITALS: BMI 19.4
[2020-10-09 11:01] VITALS: BMI 22.6
[2020-10-11 11:20] VITALS: BMI 22.6
--- NOTE | 2020-10-23 06:58 | ECHOCS_ITS ---
Reason For Study: Dyspnea/SOB Procedure This was a 2D Doppler, Color Flow transthoracic echocardiogram. Contrast injection was performed. Exam performed in department. Left Ventricle Normal LV size. Segmental dysfunction with preserved ejection fraction (see wall motion). The estimated ejection fraction is 65 %. There is evidence of diastolic dysfunction. [place] : Akinetic. Right Ventricle Normal RV size. Normal systolic function. Atria The left atrium is mildly enlarged. The right atrium is moderately enlarged. No doppler evidence for ASD. Mitral Valve There is moderate mitral annular calcification. Mild diffuse mitral valve thickening. Mild mitral valve prolapse, posterior leaflet. Mild-Moderate (1-2+) mitral valve insufficiency. Tricuspid Valve Normal tricuspid valve. Mild tricuspid valve insufficiency. Right ventricular systolic pressure estimated to be 22 mmHg. Aortic Valve Trisinus/trileaflet aortic valve. Moderate focal aortic valve calcification. Pulmonic Valve The pulmonic valve is not well visualized. Trivial pulmonic valve insufficiency. Great Vessels Normal sized aortic root. Pericardium/Pleural Trivial pericardial effusion. There are no echocardiographic indications of cardiac tamponade. Medication Diluted definity 4ml given slow IV push to enhance endocardial definition. MMode/2D Measurements & Calculations LVIDd: 4.9 cm IVSd: 0.96 cm Ao root diam: 3.3 cm LVIDs: 2.9 cm LVPWd: 1.0 cm RVDd: 3.6 cm FS: 40.1 % LAV(MOD-bp): 59.2 ml LVAd ap4: 20.4 cm2 SV(MOD-sp4): 31.1 ml LAV(MOD-bp) Indexed: 35.4 ml/m2 LVLd ap4: 6.6 cm LAV(MOD-sp2): 66.1 ml EDV(MOD-sp4): 55.4 ml LAV(MOD-sp4): 50.0 ml EDV(sp4-el): 53.7 ml LVAs ap4: 13.3 cm2 LVLs ap4: 6.3 cm ESV(MOD-sp4): 24.3 ml ESV(sp4-el): 23.9 ml EF(MOD-sp4): 56.2 % EF(sp4-el): 55.6 % SV(sp4-el): 29.9 ml LA A4 area: 18.6 cm2 LA dimension(2D): 3.9 cm RA A4 area: 21.4 cm2 Doppler Measurements & Calculations MV E max salbador: 67.2 cm/sec Lat Peak E' Salbador: 7.1 cm/sec Med Peak E' Sal[place]: 3.7 cm/sec MV A max salbador: 80.8 cm/sec E/E' lat: 9.5 E/E' med: 17.9 MV E/A: 0.83 Ao V2 max: 160.0 cm/sec LV V1 max: 79.6 cm/sec PA V2 max: 65.5 cm/sec Ao max P.2 mmHg LV V1 max P.5 mmHg Ao V2 mean: 115.6 cm/sec Ao mean P.9 mmHg Ao V2 VTI: 34.5 cm TR max salbador: 215.3 cm/sec TR max P.6 mmHg ECHO/Echo Complete W/ Contrast Interpretation Summary Contrast injection was performed. Segmental dysfunction with preserved ejection fraction (see wall motion). The estimated ejection fraction is 65 %. The left atrium is mildly enlarged. The right atrium is moderately enlarged. There is moderate mitral annular calcification. Mild diffuse mitral valve thickening. Mild mitral valve prolapse, posterior leaflet Mild-Moderate (1-2+) mitral valve insufficiency. Mild tricuspid valve insufficiency. Moderate focal aortic valve calcification. Trivial pulmonic valve insufficiency. Trivial pericardial effusion. There are no echocardiographic indications of cardiac tamponade. Right ventricular systolic pressure estimated to be 22 mmHg. There is evidence of diastolic dysfunction. Ordering Physician: Holli Gaona Referring Physician: Teagan Hall Performed By: Gianna Londono, BAHMAN, RVT
--- NOTE | 2020-10-23 13:18 | STRESSREP ---
Stress Test Report Date: 10-23-2020 Procedure: Exercise tolerance test/imaging study Indications: Shortness of breath/dyspnea; CAD; PCI Consent: Per the patient Procedure: The patient exercised on a Aden protocol for 4 minutes and 15 seconds completing Stage I and 1 minute and 15 seconds of Stage II achieving a peak heart rate of 120 bpm (88% predicted maximal heart rate) with a peak blood pressure 142/68 mmHg and a peak MET capacity of 6 METs. The baseline ECG demonstrated sinus rhythm; nonspecific ST/T wave abnormality. The peak exercise ECG demonstrated no obvious ECG changes. There was a rare PVC during exercise and recovery and an isolated ventricular couplet during recovery. The functional capacity was considered average. There was no complaint of chest discomfort during exercise or recovery. The examination was discontinued secondary to dyspnea and hip discomfort. Impression: 1. Technically adequate (percent predicted maximal heart rate greater than 85%) exercise tolerance test 2. Peak exercise ECG with no obvious ECG changes 3. There was a rare PVC during exercise and recovery and an isolated ventricular couplet during recovery 4. Nuclear images pending Myocardial perfusion imaging study: Technique: The patient was injected with 11.3 mCi of technetium 99m Cardiolite and subsequently rest SPECT Cardiolite nuclear imaging was obtained in the horizontal long, vertical long, and short axis views. The patient exercised on a Aden protocol for 4 minutes and 15 seconds completing Stage I and 1 minute and 15 seconds of Stage II achieving a peak heart rate of 120 bpm (88% predicted maximal heart rate) with a peak blood pressure 142/68 mmHg and a peak MET capacity of 6 METs. The patient was injected with 33.1 mCi of technetium 99m Cardiolite and subsequently stress SPECT Cardiolite nuclear imaging was obtained in the horizontal long, vertical long, and short axis views. A gated Cardiolite study at peak stress was obtained. Interpretation: Rest and stress SPECT Cardiolite nuclear imaging status post realignment and normalization demonstrates the appearance of diminished absence of myocardial perfusion/tracer uptake in portions of the apical segments without significant change between rest and stress. There is diminished end systolic thickening and brightening. The gated Cardiolite study demonstrates myocardial thickening and inward wall motion. The reported LVEF is 70%. Impression: 1. Rest and stress SPECT Cardiolite nuclear imaging demonstrate myocardial perfusion changes appearing compatible with previous myocardial injury/infarction event involving portions of the apical segments with no myocardial perfusion changes considered diagnostic for associated stress-induced myocardial ischemia. 2. The gated Cardiolite study reports an LVEF of 70%. This note was generated with [employer] software. It may contain incorrect words, spelling, and punctuation that were not noted in checking the note before signing.
== END ==
PROVIDERS: PCP Family Medicine; Referring Provider Physician Assistant Medical; Visit Provider Physician Assistant Medical
DX: R06.02 Shortness of breath (principal); I25.10 Atherosclerotic heart disease of native coronary artery without angina pectoris; R06.00 Dyspnea, unspecified
CPT/HCPCS: 78452; 93017; 93306; A9500; Q9957; A4216; C8929; J3490

== ENCOUNTER → 2020-11-06 10:48 | Outpatient (CLI) | payer MEDICARE, SELFPAY ==
[2020-06-07 08:50] VITALS: BMI 19.4
[2020-09-06 11:39] VITALS: BMI 22.6
[2020-10-11 11:20] VITALS: BMI 22.6
[2020-11-06] MEDS: 0.9% NaCl IVPB Med Flush (250 mL) 15 ML IV (11:00)
[2020-11-06 11:05] VITALS: BP 122/69; PULSE 70; RESP 16; TEMP 36.4; O2SAT 98; BMI 22.4
[2020-11-06] MEDS: 0.9% NaCl Peripheral Flush Adult/Peds IV (12:05)
== END ==
PROVIDERS: PCP Family Medicine; Referring Provider Internal Medicine Rheumatology; Visit Provider Internal Medicine Rheumatology
DX: M06.9 Rheumatoid arthritis, unspecified (principal)
CPT/HCPCS: 96365; J7050; A4216; J0129

== ENCOUNTER → 2020-11-14 08:04 | Outpatient (CLI) | payer MEDICARE, SELFPAY ==
[2020-06-07 08:50] VITALS: BMI 19.4
[2020-11-13 11:19] VITALS: BMI 22.4
[2020-11-14 10:23] LABS: BNP,B-Type NATRIURETIC PEPTIDE 298.6 pg/mL (0-100)
[2020-11-14 11:23] LABS: AST(SGOT) 15 U/L (15-37); Alanine Aminotransfer ALT/SGPT 22 U/L (13-56); Albumin, Serum 3.7 g/dL (3.2-5.0); Alkaline Phosphatase 62 U/L (45-117); Bilirubin, Direct 0.22 mg/dL (0.00-0.30); Cholesterol 145 mg/dL (200); Globulin 3.2 g/dL (2.2-4.2); High Density Lipoprotein 73 mg/dL; Protein, Total 6.9 g/dL (6.4-8.2); Triglycerides 102 mg/dL; Very Low Density Lipoprotein 20 mg/dL (5-40)
== END ==
PROVIDERS: PCP Family Medicine; Referring Provider Internal Medicine Cardiovascular Disease; Visit Provider Internal Medicine Cardiovascular Disease
DX: I21.3 ST elevation (STEMI) myocardial infarction of unspecified site (principal); R06.00 Dyspnea, unspecified; I25.10 Atherosclerotic heart disease of native coronary artery without angina pectoris; E78.00 Pure hypercholesterolemia, unspecified; Z95.5 Presence of coronary angioplasty implant and graft
CPT/HCPCS: 36415; 80061; 80076; 83880

== ENCOUNTER → 2020-11-19 09:20 | Outpatient (CLI) | payer MEDICARE, SELFPAY ==
[2020-06-07 08:50] VITALS: BMI 19.4
[2020-10-11 11:20] VITALS: BMI 22.6
[2020-11-13 11:19] VITALS: BMI 22.4
--- NOTE | 2020-11-19 13:19 | PFTCOMP ---
COMPLETE PULMONARY FUNCTION TEST INTERPRETATION Brief HPI: Patient is an 85 year old female, currently under the care of Dr. Shane, who presents to [facility] for complete pulmonary function tests secondary to diagnosis of dyspnea. Respiratory therapist reports good effort and reproducible results. Interpretation: Forced expiration spirometry shows a mild large airways obstructive ventilatory defect with an FEV1 of 88% predicted. There is no significant bronchodilator response by strict ATS criteria. Spirograms are of good quality and plateau slowly, indicating slowly emptying areas of the lungs. The respiratory flow volume loop shows decreased expiratory flow rates at all lung volumes consistent with airway obstruction. Lung volumes by body plethysmography show a normal total lung capacity at 4.63 L, 93% predicted. All other lung volumes are within normal limits. Diffusion capacity by carbon monoxide is normal at 84% predicted. The airway resistance is elevated. No previous pulmonary function tests were available for review. Impression: Irreversible mild large airways obstructive ventilatory defect
== END ==
PROVIDERS: PCP Family Medicine; Referring Provider Internal Medicine Critical Care Medicine; Visit Provider Internal Medicine Critical Care Medicine
DX: R06.00 Dyspnea, unspecified (principal); I25.10 Atherosclerotic heart disease of native coronary artery without angina pectoris; Z95.5 Presence of coronary angioplasty implant and graft
CPT/HCPCS: 94060; 94726; 94729

== ENCOUNTER → 2020-11-29 11:10 | Outpatient (CLI) | payer MEDICARE, SELFPAY ==
[2020-06-07 08:50] VITALS: BMI 19.4
[2020-10-11 11:20] VITALS: BMI 22.6
[2020-11-13 11:19] VITALS: BMI 22.4
[2020-11-29 11:48] VITALS: PULSE 78; PULSE 79; PULSE 84; PULSE 85; PULSE 86; PULSE 89; PULSE 90; O2SAT 89; O2SAT 90; O2SAT 94
--- NOTE | 2020-11-30 07:05 | PCM.PSN.6M ---
PSN 6 Minute Walk Test 6 Minute Walk Test 6 Minute Walk Test: 6 Minute Walk Test PSN:6-Minute Walk Test Start: 11/29/20 11:48 Freq: Status: Active Protocol: [id number] Document 11/29/20 11:48 CONRAD (Rec: 11/29/20 11:50 CONRAD [id number]) 6 Minute Walk Test Date Performed 11/29/20 Time Performed 11:30 Height 5 ft 5 in Weight: 61.235 kg Weight in Pounds 135.[address]: Aden Marquez Assistive device used: None Pre-test Oxygen Delivery Method Room Air Pulse Ox (%) 94 Pulse Rate (60-100 beats/min) 78 Dyspnea Abiola Scale (0-10) 1 Exertion Abiola Scale (6-20) 6 1st minute Oxygen Delivery Method Room Air Pulse Ox (%) 90 Pulse Rate (60-100 beats/min) 79 2nd minute Oxygen Delivery Method Room Air Pulse Ox (%) 89 Pulse Rate (60-100 beats/min) 85 3rd minute Oxygen Delivery Method Room Air Pulse Ox (%) 90 Pulse Rate (60-100 beats/min) 86 4th minute Oxygen Delivery Method Room Air Pulse Ox (%) 89 Pulse Rate (60-100 beats/min) 89 5th minute Oxygen Delivery Method Room Air Pulse Ox (%) 90 Pulse Rate (60-100 beats/min) 90 6th minute Oxygen Delivery Method Room Air Pulse Ox (%) 89 Pulse Rate (60-100 beats/min) 90 Dyspnea Abiola Scale (0-10) 3 Exertion Abiola Scale (6-20) 12 Post-test Oxygen Delivery Method Room Air Pulse Ox (%) 94 Pulse Rate (60-100 beats/min) 84 Full Laps Walked 19 Partial Lap, Number of Tiles Walked 20 Total Distance Walked (ft) 1141 Interpretation Interpretation: The patient ambulated 1141 feet over the course of 6 minutes beginning on room air without assistive devices. Pretesting oxygen saturation was noted to be 94% on room air. With ambulation, the jacy oxygen saturation was 89%. This represents a significant exertional oxygen desaturation. Recommendations Recommendations: There is no indication for the use of supplemental oxygen at this time. However, close interval follow-up is recommended, given the degree of oxygen desaturation noted during this study.
== END ==
PROVIDERS: PCP Family Medicine; Referring Provider Internal Medicine Critical Care Medicine; Visit Provider Internal Medicine Critical Care Medicine
DX: R06.00 Dyspnea, unspecified (principal)
CPT/HCPCS: 94618

== ENCOUNTER → 2020-12-04 11:52 | Outpatient (CLI) | payer MEDICARE, SELFPAY ==
[2020-06-07 08:50] VITALS: BMI 19.4
[2020-10-11 11:20] VITALS: BMI 22.6
[2020-11-13 11:19] VITALS: BMI 22.4
[2020-12-04] MEDS: 0.9% NaCl IVPB Med Flush (250 mL) 15 ML IV (12:09)
[2020-12-04 12:11] VITALS: BP 137/50; PULSE 67; RESP 16; TEMP 36.5; O2SAT 100
[2020-12-04 13:09] VITALS: BP 156/68; PULSE 73; RESP 16
== END ==
PROVIDERS: PCP Family Medicine; Referring Provider Internal Medicine Rheumatology; Visit Provider Internal Medicine Rheumatology
DX: M06.9 Rheumatoid arthritis, unspecified (principal)
CPT/HCPCS: 96365; J7050; A4216; J0129

== ENCOUNTER 2020-12-11 13:12 | Outpatient (RCR) | payer MEDICARE, SELFPAY ==
[2020-06-07 08:50] VITALS: BMI 19.4
[2020-12-09 07:58] VITALS: BMI 22.3
[2020-12-11 15:20] LABS: Absolute Lymphocyte Count 1.34 X10^3/uL (0.83-4.51); Absolute Neutrophil Count 2.7 X10^3/uL (2.0-7.7); Basophil# 0.03 X10^3/uL; Basophil% 0.7 % (0-1); Eosinophil# 0.03 X10^3/uL; Eosinophils% 0.7 % (0-5); Hematocrit 39.2 % (37-47); Hemoglobin 12.9 g/dL (12.0-15.0); Lymphocyte # 1.34 X10^3/ul (0.83-4.51); Lymphocyte % 29.3 % (19-41); Mean Corp Hgb Conc 32.9 g/dL (32-36); Mean Corpuscular Hgb 31.6 pg (27.0-32.0); Mean Corpuscular Volume 96.1 fL (81-99); Mean Platelet Vol. 10.8 fl (6.2-12.0); Monocyte# 0.51 X10^3/uL; Monocyte% 11.2 % (0-10); NRBC Flagged by Analyzer 0 % (0-5); Neutrophil # 2.65 X10^3/uL (2.7-7.7); Neutrophil % 57.9 % (47-70); Platelet Count 184 K/mm3 (150-450); RBC Distribution Width CV 13.7 % (11.6-14.6); RBC Distribution Width SD 49.1 fl (35.1-43.9); Red Blood Count 4.08 M/mm3 (4.2-5.4); White Blood Count 4.6 K/mm3 (4.4-11.0)
[2020-12-11 15:48] LABS: ALB/GLOB Ratio 1.1 RATIO (0.9-2.4); AST(SGOT) 17 U/L (15-37); Alanine Aminotransfer ALT/SGPT 24 U/L (13-56); Albumin, Serum 3.7 g/dL (3.2-5.0); Alkaline Phosphatase 52 U/L (45-117); Anion Gap 6 (5-15); BUN 19 mg/dL (7-18); BUN/Creat Ratio 21.3 RATIO (10-20); Calcium,Total 8.9 mg/dL (8.5-10.1); Chloride 103 mmol/L (98-107); Creatinine, Serum 0.89 mg/dL (0.55-1.02); EST Glomerular Filtration Rate 64 mL/min (>60); Est Glom Filt Rate - Afr Amer 77 mL/min (>60); Globulin 3.3 g/dL (2.2-4.2); Glucose 86 mg/dL (74-106); Potassium 3.9 mmol/L (3.5-5.1); Sodium Level 136 mmol/L (136-145)
== END 2020-12-11 18:00 | disposition home or self-care (01) ==
LOC: MTLAB 13:12
PROVIDERS: PCP Family Medicine; Referring Provider Internal Medicine Rheumatology; Visit Provider Internal Medicine Rheumatology
DX: M05.70 Rheumatoid arthritis with rheumatoid factor of unspecified site without organ or systems involvement (principal); Z79.899 Other long term (current) drug therapy; M50.30 Other cervical disc degeneration, unspecified cervical region; I25.10 Atherosclerotic heart disease of native coronary artery without angina pectoris; Z85.3 Personal history of malignant neoplasm of breast
CPT/HCPCS: 36415; 80053; 85025

== ENCOUNTER → 2020-12-24 11:43 | Outpatient (CLI) | payer MEDICARE, SELFPAY ==
[2020-06-07 08:50] VITALS: BMI 19.4
--- NOTE | 2020-12-24 11:50 | RAD_ITS ---
STUDY: X-RAY CHEST REASON FOR EXAM: Female, 85 years old. Pre-operative . Chest pain. History of breast cancer. TECHNIQUE: PA and lateral views of the chest. COMPARISON: Comparison is made with prior study dated 05/15/2020. FINDINGS: A left-sided portacatheter is seen with the tip in the proximal portion of the superior vena cava. The patient is status post right mastectomy. Surgical clips are seen in the right axillary region. There is hyperinflation of the lungs consistent with chronic obstructive lung disease (COPD). Stable calcific densities overlying the right hemithorax. These most likely represent callus from healed rib fractures. Normal size heart. Normal mediastinum and jessica. Normal visualized pulmonary arteries. Normal visualized aortic arch and descending thoracic aorta. There is demineralization of the osseous structures. Almost complete collapse of the T12 vertebrae. Normal visualized ribs, clavicles, and shoulders. There is no demonstrated abnormality of the visualized soft tissue structures of the upper abdomen. RAD/Chest PA and Lateral IMPRESSION: Stable examination. Electronically Signed: Aneudy Cardenas MD at 12:08 EDT , Service support ,
== END ==
PROVIDERS: PCP Family Medicine; Referring Provider Nurse Practitioner Family; Visit Provider Nurse Practitioner Family
DX: Z01.818 Encounter for other preprocedural examination (principal); I25.10 Atherosclerotic heart disease of native coronary artery without angina pectoris; I34.0 Nonrheumatic mitral (valve) insufficiency; R00.2 Palpitations; Z95.5 Presence of coronary angioplasty implant and graft
CPT/HCPCS: 71046

== ENCOUNTER → 2021-01-01 10:50 | Outpatient (CLI) | payer MEDICARE, SELFPAY ==
[2020-06-07 08:50] VITALS: BMI 19.4
[2020-11-13 11:19] VITALS: BMI 22.4
[2021-01-01] MEDS: 0.9% NaCl IVPB Med Flush (250 mL) 15 ML IV (10:57)
[2021-01-01 11:09] VITALS: BP 154/59; PULSE 71; RESP 18; TEMP 36.3; O2SAT 98; BMI 22.4
[2021-01-01] MEDS: 0.9% NaCl Peripheral Flush Adult/Peds IV (13:03)
== END ==
PROVIDERS: PCP Family Medicine; Referring Provider Internal Medicine Rheumatology; Visit Provider Internal Medicine Rheumatology
DX: M06.9 Rheumatoid arthritis, unspecified (principal)
CPT/HCPCS: 96365; J7050; A4216; J0129

== ENCOUNTER 2021-01-02 07:05 | Day surgery (SDC) | payer MEDICARE, SELFPAY ==
[2020-06-07 08:50] VITALS: BMI 19.4
[2020-12-09 07:58] VITALS: BMI 22.3
[2021-01-01 08:52] VITALS: BMI 22.4
--- NOTE | 2021-01-01 17:16 | HP.PCM_ITS ---
History and Physical Date of Admission: 01/02/21 [facility] [id number] [place], [place] [phone] OFFICE VISITDate of Service: 12/24/20 MR#:[id number]: ROBERTO RASMUSSENRep #:[id number] Provider: WAYNE Mchugh RoofAge/Sex: 85/F Locatio n:BMS.WHGStatus:Signed HPI HPI History of Present Illness Surgical H&P: Yes Details: This is an 85-year-old white female who presents today for outpatient cardiovascular follow-up of her history of underlying CAD status post inferior STEMI status post RCA thrombectomy and PTCA/stent. She also has a history of mitral valve insufficiency and mild COPD. Her stress test on 10/23/2020 was negative for ischemia. Her echocardiogram on 10/23/2020 showed ejection fraction of 65% and akinetic apex. She continue expressed concerns regarding shortness of breath and underwent pulmonary function tests as well as laboratory evaluation. Her pulmonary function test on 11/19/2020 showed irreversible mild large airways obstructive ventilatory defect. Her BNP on 11/14/2020 was elevated 298.6. She was seen by pulmonology team on 12/09/2020. She continued to have shortness of breath despite inhaler medications. Thus, she will proceed with heart catheterization to assess coronary artery disease component. She states noting an increase in SOB with activity. She states her activity level is worsening and her activity, such as gardening and swimming, is getting more difficult to complete. She states an increase in fatigue. She states episode of chest pain that radiate into right arm. This occurred with rest. This lasted for 15-20 minutes and resolved on its own. There was no secondary symptoms. She describe this a tingling, zips, and my heart hurt. 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 Accompanied by: None Is patient in pain?: No Allergies ticagrelor [From Brilinta] Adverse Reaction (Severe, Verified 12/24/20 10:48) Severe dyspnea on exertion Medications calcium carbonate 1,000 mg PO DAILY@0800 10/26/18 [History Confirmed 12/24/20] abatacept 750 mg IV QMONTH 12/13/19 [History Confirmed 12/24/20] acetaminophen 1,000 mg PO BID 04/12/20 [History Confirmed 12/24/20] aspirin 81 mg PO DAILY@0800 05/16/20 [History Confirmed 12/24/20] folic acid 1 mg tablet 1 mg PO BID tab 05/23/20 [History Confirmed 12/24/20] methotrexate sodium 2.5 mg tablet 15 mg PO BRENNER tab 05/23/20 [History Confirmed 12/24/20] clopidogrel 75 mg tablet 75 mg PO DAILY #90 tab 06/21/20 [Rx Confirmed 12/24/20] leucovorin calcium 15 mg tablet 15 mg PO QWEEK tab 09/25/20 [History Confirmed 12/24/20] tiotropium 2.5 mcg-olodaterol 2.5 mcg/actuation mist for inhalation 2 inh INHALATION DAILY #4 g 12/09/20 [Rx Confirmed 12/24/20] metoprolol tartrate 25 mg tablet 25 mg PO BID #180 tab 12/24/20 [Rx Confirmed 12/24/20] PFSH Medical History Arthritis Atherosclerosis of coronary artery of [place] heart without angina pectoris Colonization status Contamination Delayed wound healing Fx cervical vert NOS-closed Fx clavicle History of coronary artery stent placement (04/12/20) History of malignant neoplasm of right breast 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 Left ankle swelling Malignant neoplasm of right female breast Mitral valve insufficiency Non-pressure chronic ulcer of unspecified part of left lower leg with fat layer exposed Osteomyelitis of left lower extremity Osteopenia Other specified peripheral vascular diseases Rheumatoid arthritis Staph infection STEMI (ST elevation myocardial infarction) Venous insufficiency (chronic) (peripheral) Surgical History History of arthroplasty of left ankle History of mastectomy History of tubal ligation Presence of coronary angioplasty implant and graft (~04/12/20) Family History Father Clotting disorder Heart disease Social History Smoking Status: Never smoker alcohol intake: never substance use type: does not use caffeine: Yes ROS Const Const: Positive for fatigue and other (Decreased exercise capacity); Negative for weakness, body ache, fever(s) or chills ENT ENT: Negative for dizziness or Nosebleed/epistaxis Cardio Chest Pain: Yes Palpitations: No Edema: None Muscle aches with walking: None Resp Respiratory: Positive for SOB with activity; Negative for SOB at rest, SOB orthopnea\SOB lying down, Cough or paroxysmal nocturnal dyspnea GI GI: Negative nausea, vomiting blood/hematemesis, bright, red blood in stools or black,tarry stools : Negative for hematuria or frequent nighttime urination/ nocturia Musc Musc: Negative for muscle aches/ myalgia Skin Skin: Negative non-healing lesions or rash Neuro Neuro: Negative for dizziness, lightheadedness, near syncope, syncope, orthostatic symptoms or weakness Endo Endo: Positive for fatigue Allergy Allergy/Immunology: Negative for rash Cardiology Exam Const Appearance: cooperative, healthy appearing, comfortable and no acute distress Nutritional Appearance: average body habitus and well nourished Orientation: alert, awake and oriented x3 Head Head: normal to inspection Ears: hearing grossly normal bilaterally Nose: external nose normal Face and Sinus: face symmetric Mouth: oral mucosae normal Eyes General: appearance normal, both eyes and all related structures Eyelids: eyelids normal EOM: EOM intact bilaterally Neck Neck: normal visual inspection and no JVD Carotids: normal carotid upstroke Chest Chest inspection: normal inspection of the chest, symmetric chest movement and normal respiratory effort; Negative cough Auscultation: Bilateral: Clear to Auscultation Cardio Rate: regular rate Rhythm: regular rhythm Heart sounds: S1 normal and S2 normal; Negative rub, gallop or murmur GI GI: normal to inspection Neuro General: patient alert, patient awake, patient oriented x3 and CN's II-XI intact bilaterally Skin Skin: no rashes or lesions noted Extremities Pulses: Normal: Right Posterior Tibial Pulse, Left Posterior Tibial Pulse, Right Radial Pulse and Left Radial Pulse Lower Extremity Edema: None: Bilateral Psych Psychological: normal affect Assessment and Plan Assessment and Plan (1) Atherosclerosis of coronary artery of [place] heart without angina pectoris: Status: Chronic Qualifiers: Coronary Disease-Associated Artery/Lesion type: [place] artery Qualified Code(s): I25.10 - Atherosclerotic heart disease of [place] coronary artery without angina pectoris Comment: Drug-eluting stent to mid RCA on 04/12/2020; Orders: Orders: Chest PA and Lateral Today Plan - Sharad Londono LADLE HANDLER, LADLE HANDLER-C: Patient underwent stress test on 10/23/2020 that was negative for ischemia. She underwent echocardiogram on 10/23/2020 that showed ejection fraction of 65% and akinetic apex. She has also completed pulmonology evaluation. She continues to have symptoms of concern suggestive of coronary artery disease. She will proceed with heart catheterization. Based on results, further recommendation will be made. Her EKG in office on 12/24/2020 shows sinus rhythm at a rate of 69 bpm, OR interval 190, QTc 339, and QRS 93. There are no acute ST or T wave changes. (2) History of coronary artery stent placement: Status: Chronic Comment: 3.00 x 32 Synergy MR FABIANA to mRCA 04/12/20 Orders: Orders: Chest PA and Lateral Today Kourtney - Sharad Londono NP, LADLE HANDLER-C: She will continue current medical therapy which includes aspirin, Plavix, and metoprolol tartrate. She is currently not on statin medication. It is presumed that she has not tolerated this previously. She is not on SAMARA inhibitor or ARB. Her most recent echocardiogram showed a preserved ejection fraction. We can consider SAMARA inhibitor or ARB based on heart catheterization results as well as blood pressure. (3) Mitral valve insufficiency: Status: Chronic Qualifiers: Cardiac valve disease etiology: nonrheumatic Qualified Code(s): I34.0 - Nonrheumatic mitral (valve) insufficiency Orders: Orders: Chest PA and Lateral Today Kourtney - Sharad Londono LADLE HANDLER, LADLE HANDLER-C: Her most recent echocardiogram in October 2020 showed ejection fraction of 65% and mild to moderate mitral valve insufficiency. She will continue current medical therapy and we will continue to monitor over time. (4) Palpitations: Status: Chronic Orders: Orders: 12 Lead EKG performed by [facility] Today Chest PA and Lateral Today Kourtney - Sharad Londono LADLE HANDLER, LADLE HANDLER-C: She denies any recurrent palpitations. She will continue current beta-kemal and we will continue to monitor. Plan Details Other Medications: Changed: From: metoprolol tartrate 25 mg (1/2 x 50 mg) PO BID 180 tabs 3RF blood pressure To: metoprolol tartrate 25 mg PO BID 180 tabs 3RF blood pressure Other Orders: Orders: Chest PA and Lateral Today Z01.818 Additional Comments: Patient was asked to undergo chest x-ray today as her evaluation prior to heart catheterization. Thank you for allowing us to participate in the patients plan of care, if you have any questions please do not hesitate to call. This note was generated using a voice recognition system and there may be incorrect words, spelling or punctuation that were not noted when reviewing the office note prior to saving. Follow Up: 10-12 Months (PFM) COVID (Procedure Consent) Procedure Criteria Procedure Criteria: Yes Elective The surgeon/proceduralist and patient have discussed in detail the risk of exposure to and/or potential harm posed by the COVID-19 virus with having a surgery/procedure at this time versus the risk of delaying the surgery/procedure. It is not possible to know either the risk of delaying the surgery or procedure or chance of getting an infection with perfect accuracy, but a joint decision was made between the patient and the surgeon/proceduralist to proceed at this time with the scheduled surgery/procedure as indicated on the consent form. Coding Level of Care Code Off vis,est,level 3 Diagnoses Atherosclerosis of coronary artery of [place] heart without angina pectoris I25.10 Coronary Disease-Associated Artery/Lesion type: [place] artery History of coronary artery stent placement Z95.5 Mitral valve insufficiency I34.0 Cardiac valve disease etiology: nonrheumatic Palpitations R00.2 Coding Level of Care Code Off vis,est,level 3 Diagnoses Atherosclerosis of coronary artery of [place] heart without angina pectoris I25.10 Coronary Disease-Associated Artery/Lesion type: [place] artery History of coronary artery stent placement Z95.5 Mitral valve insufficiency I34.0 Cardiac valve disease etiology: nonrheumatic Palpitations R00.2 Supplemental Info Supplemental Information Transthoracic echocardiogram: 10-23-2020 Interpretation Summary Contrast injection was performed. Segmental dysfunction with preserved ejection fraction (see wall motion). The estimated ejection fraction is 65 %. The left atrium is mildly enlarged. The right atrium is moderately enlarged. There is moderate mitral annular calcification. Mild diffuse mitral valve thickening. Mild mitral valve prolapse, posterior leaflet Mild-Moderate (1-2+) mitral valve insufficiency. Mild tricuspid valve insufficiency. Moderate focal aortic valve calcification. Trivial pulmonic valve insufficiency. Trivial pericardial effusion. There are no echocardiographic indications of cardiac tamponade. Right ventricular systolic pressure estimated to be 22 mmHg. There is evidence of diastolic dysfunction. Echocardiogram: 05/08/2020 Interpretation Summary The study was technically limited. Contrast injection was performed. Segmental dysfunction with preserved ejection fraction (see wall motion). The estimated ejection fraction is 65 %. The left atrium is mildly enlarged. The right atrium is mildly enlarged. There is mild to moderate mitral annular calcification. Extension of the mitral annular calcification onto the base of the posterior mitral valve leaflet. Mild-Moderate (1-2+) mitral valve insufficiency. Trivial tricuspid valve insufficiency. Mild focal aortic valve thickening. Mild (1+) pulmonic valve insufficiency. Right ventricular systolic pressure estimated to be 27 mmHg. Diastolic function is indeterminate. Stress Test Report Date: 10-23-2020 Procedure: Exercise tolerance test/imaging study Indications: Shortness of breath/dyspnea; CAD; PCI Consent: Per the patient Procedure: The patient exercised on a Aden protocol for 4 minutes and 15 seconds completing Stage I and 1 minute and 15 seconds of Stage II achieving a peak heart rate of 120 bpm (88% predicted maximal heart rate) with a peak blood pressure 142/68 mmHg and a peak MET capacity of 6 METs. The baseline ECG demonstrated sinus rhythm; nonspecific ST/T wave abnormality. The peak exercise ECG demonstrated no obvious ECG changes. There was a rare PVC during exercise and recovery and an isolated ventricular couplet during recovery. The functional capacity was considered average. There was no complaint of chest discomfort during exercise or recovery. The examination was discontinued secondary to dyspnea and hip discomfort. Impression: 1. Technically adequate (percent predicted maximal heart rate greater than 85%) exercise tolerance test 2. Peak exercise ECG with no obvious ECG changes 3. There was a rare PVC during exercise and recovery and an isolated ventricular couplet during recovery 4. Nuclear images pending Myocardial perfusion imaging study: Technique: The patient was injected with 11.3 mCi of technetium 99m Cardiolite and subsequently rest SPECT Cardiolite nuclear imaging was obtained in the horizontal long, vertical long, and short axis views. The patient exercised on a Aden protocol for 4 minutes and 15 seconds completing Stage I and 1 minute and 15 seconds of Stage II achieving a peak heart rate of 120 bpm (88% predicted maximal heart rate) with a peak blood pressure 142/68 mmHg and a peak MET capacity of 6 METs. The patient was injected with 33.1 mCi of technetium 99m Cardiolite and subsequently stress SPECT Cardiolite nuclear imaging was obtained in the horizontal long, vertical long, and short axis views. A gated Cardiolite study at peak stress was obtained. Interpretation: Rest and stress SPECT Cardiolite nuclear imaging status post realignment and no rmalization demonstrates the appearance of diminished absence of myocardial perfusion/tracer uptake in portions of the apical segments without significant change between rest and stress. There is diminished end systolic thickening and brightening. The gated Cardiolite study demonstrates myocardial thickening and inward wall motion. The reported LVEF is 70%. Impression: 1. Rest and stress SPECT Cardiolite nuclear imaging demonstrate myocardial perfusion changes appearing compatible with previous myocardial injury/infarction event involving portions of the apical segments with no myocardial perfusion changes considered diagnostic for associated stress-induced myocardial ischemia. 2. The gated Cardiolite study reports an LVEF of 70%. Stress Test Report Date: 05-08-2020 Procedure: Pharmacologic stress nuclear imaging study Indications: Shortness of breath/dyspnea on exertion; CAD; status post PCI Consent: Per the patient Procedure: The patient underwent pharmacologic (Regadenoson) evaluation with a peak heart rate of 102 beats per minute (74%predicted maximal heart rate) and a peak blood pressure of 142/88 mmHg. The baseline ECG demonstrated normal sinus rhythm; incomplete right bundle branch block pattern; poor R wave progression; nonspecific ST/T wave abnormality. The peak pharmacologic ECG demonstrated no obvious ECG changes. There was an isolated PVC during recovery. There was no complaint of chest discomfort during pharmacologic infusion or recovery. The examination was discontinued secondary to completion of protocol. Impression: 1. Pharmacologic (Regadenoson) evaluation 2. Peak pharmacologic ECG with no obvious ECG changes. 3. There was an isolated PVC during recovery. 4. Nuclear images pending Myocardial perfusion imaging study: Technique: The patient was injected with 11.4 millicuries of technetium 99m Cardiolite and subsequently rest SPECT Cardiolite nuclear imaging was obtained in the horizontal long, vertical long, and short axis views. The patient underwent pharmacologic (Regadenoson) evaluation with a peak heart rate of 102 beats per minute (74% percent predicted maximal heart rate) and a peak blood pressure of 142/88 mmHg. The patient was injected with 33.5 millicuries of technetium 99m Cardiolite and subsequently stress SPECT Cardiolite nuclear imaging was obtained in the horizontal long, vertical long, and short axis views. A gated Cardiolite study at peak stress was obtained. Interpretation: Rest and stress SPECT Cardiolite nuclear imaging status post realignment, normalization, and attenuation correction demonstrate the appearance of extracardiac/gastrointestinal tracer uptake near the inferior segments as well as a small area of diminished tracer uptake near the apical segments which between the preattenuation and post attenuation images appears to suggest no significant change between rest and stress. There is end systolic thickening and brightening. The gated Cardiolite study demonstrates myocardial thickening and inward wall motion. The reported LVEF is 70%. Impression: 1. Rest and stress SPECT current nuclear imaging demonstrate myocardial perfusion changes appearing compatible with the effects of physiologic apical thinning with no myocardial perfusion changes considered diagnostic for associated stress-induced myocardial ischemia. 2. The gated Cardiolite study reports an LVEF of 70%. Cardiac intervention from 04/12/2020: CONCLUSIONS CAD as described. Overall preserved EF with apical hypokinesis. No significant or MR. Successful thrombectomy and FABIANA to mRCA RECOMMENDATIONS ASA Indefinitley Brilinta for at least 12 months CORONARY ANGIOGRAPHY DOMINANCE: Right Dominant LEFT HEART ASSESSMENT Left Ventricular Ejection Fraction: by LV Gram 65 % Apical Hypokinesis - Mild LEFT MAIN: separate ostia of LAD and LCx from the aorta LEFT ANTERIOR DESCENDING ARTERY: Mild luminal irregularities CIRCUMFLEX ARTERY: Mild luminal irregularities RIGHT CORONARY ARTERY: MID RCA: 100 % Stenosis VALVE FINDINGS: No Aortic Valve Stenosis No Mitral Insufficiency Labs: LDL Cholesterol 52 mg/dL (0-130) HDL Cholesterol 73 mg/dL (40-) Triglycerides 102 mg/dL (-199) VLDL Cholesterol 20 mg/dL (5-40) Diagnostics: Electrocardiogram Echocardiogram Stress Test NM Stress Test Pulmonary: Pulmonary Function Test Pulmonary Exercise Test 12/24/20 1231<Electronically signed by Sharad JOHNSONC>Date Sharad Londono NP, NP-C Cosigner Signature:Date (if applicable) CC: Dr. Teagan Hall MD ~ Assessment & Plan Addt'l Comments I have re-examined the patient. There are no clinical changes since date of exam.
--- NOTE | 2021-01-02 09:28 | CL.D_ITS ---
Patient Name: ROBERTO RASMUSSEN Study Date: 01/02/2021 Performing: Chucho Shane MD Ht: 64.96 inches 165 cm : 1935 Wt: 134.48 lbs 61 kg Age: 85 Gender: female BSA: 1.67 PROCEDURE(S) PERFORMED [id number]/COR/LV CLINICAL PROFILE AND INDICATIONS Indications: Worsening Angina, LV Dysfunction, Suspected CAD Heart Failure: None Stress/Imaging Date: 10/23/2020tress Test with SPECT MPI: Negative Angina Classification Anginal Classification w/in 2 Weeks: Anginal Equivalent Dyspnea CAD Presentations: Other: worsening angina; dyspnea on exertion CONCLUSIONS Elevated Left Ventricular End Diastolic Pressure Segmented LV systolic dysfunction with overall preserved LVEF LVEF: by LV gram 65 % LAD: angiographically normal; possible mid intramyocardial bridging segment with RADHA III flow in bot h systole and diastole RCA: mid stent: patent RECOMMENDATIONS Risk factor modification Medical therapy DESCRIPTION OF PROCEDURE The patient arrived to the procedure lab. The risks and benefits of the procedure as well as a full d escription of our services here and current unavailability of surgical backup were fully explained to the patient and/or their significant other prior to the catheterization. The Timeout was completed, verifying the correct patient and procedure. The patient's procedural site was prepped and draped in the usual fashion. Local anesthetic was given subcutaneously to right radial region with Lidocaine 2% . Using a modified Seldinger technique, arterial access was obtained via the right radial artery, a 6 Fr sheath was inserted. Left Coronary Artery selective angiography was performed in multiple views u sing a 5 Fr. 4.0 [place] Star catheter. Right Coronary Artery selective angiography was then performed in mu ltiple views using a 5 Fr. 4.0 [place] Star catheter. Left Ventriculography was performed in FRANZ projection using a 5 Fr. Pigtail catheter. LV to AO pullback pressures were then recorded.The arterial sheath was pulled and a TR Band was applied for hemostasis. Sheath flushed. 12cc air inserte d. CORONARY ANGIOGRAPHY DOMINANCE: Right Dominant LEFT HEART ASSESSMENT Left Ventricular Ejection Fraction: by LV Gram 65 % Apical Akinesis Elevated Left Ventricular End Diastolic Pressure LVEDP: 26 mmHg LEFT MAIN: absent: separate ostia to the LAD and LCX LEFT ANTERIOR DESCENDING ARTERY: Angiographically normal MID LAD: possible intramyocardial bridging segment with RADHA III flow in both systole and diastole CIRCUMFLEX ARTERY: Angiographically normal RIGHT CORONARY ARTERY: PROX RCA: Mild luminal irregularities MID RCA: Previously placed stent is patent VALVE FINDINGS: Mitral Valve Annular Calcification Moderate AORTIC ROOT: Angiographically normal COMPLICATIONS No Complications PROCEDURE MEDICATIONS Fentanyl 50 mcg IV Versed 1 mg IV Fentanyl 50 mcg IV Versed 1 mg IV Oxygen: 2 L/min via nasal cannula Heparin given IA 01/02/2021 08:33:21 Verapamil 2.5mg, Ntg 100mcgs, 3000 units of Heparin given IA 01/02/2021 08:33:21 SUMMARY OF HEMODYNAMIC DATA Time AIR REST ECG 07:26:21 AO 131/62 (90) SA 08:35:30 LV 140/5, 29 08:51:34 LV 134/4, 26 08:51:39 LV 144/2, 27 08:52:55 LV 144/1, 25 08:53:01 LVp 141/-4, 30 08:53:05 AOp 137/55 (82) 08:53:10 ECG 09:20:23 09:20:59 Signed By Chucho Shane MD On 01/02/2021 09:27:34 Chucho Shane MD
== END 2021-01-02 10:57 | disposition home or self-care (01) ==
LOC: CLSP 07:07
PROVIDERS: PCP Family Medicine; Referring Provider Internal Medicine Cardiovascular Disease; Visit Provider Internal Medicine Cardiovascular Disease
DX: I25.110 Atherosclerotic heart disease of native coronary artery with unstable angina pectoris (principal); R06.00 Dyspnea, unspecified; I25.2 Old myocardial infarction; J44.9 Chronic obstructive pulmonary disease, unspecified; M06.9 Rheumatoid arthritis, unspecified; Z79.02 Long term (current) use of antithrombotics/antiplatelets; Z79.82 Long term (current) use of aspirin; Z79.899 Other long term (current) drug therapy; Z95.5 Presence of coronary angioplasty implant and graft
CPT/HCPCS: 93458; 99152; 99153; J7040; Q9967; A4216; C1769; C1894

== ENCOUNTER → 2021-01-07 14:46 | Outpatient (CLI) | payer MEDICARE, SELFPAY ==
[2020-06-07 08:50] VITALS: BMI 19.4
== END ==
PROVIDERS: PCP Family Medicine; Visit Provider Family Medicine
DX: T84.60XA Infection and inflammatory reaction due to internal fixation device of unspecified site, initial encounter (principal)
CPT/HCPCS: 87070; 87077; 87186; 87205

== ENCOUNTER → 2021-02-05 10:48 | Outpatient (CLI) | payer MEDICARE, SELFPAY ==
[2020-06-07 08:50] VITALS: BMI 19.4
[2021-02-05 11:06] VITALS: BP 146/66; PULSE 73; RESP 16; TEMP 36.9; O2SAT 100
[2021-02-05] MEDS: 0.9% NaCl IVPB Med Flush (250 mL) 15 ML IV (11:24)
[2021-02-05] MEDS: 0.9% NaCl Peripheral Flush Adult/Peds IV (12:07)
[2021-02-05 12:11] VITALS: BP 142/65; PULSE 78
== END ==
PROVIDERS: PCP Family Medicine; Referring Provider Internal Medicine Rheumatology; Visit Provider Internal Medicine Rheumatology
DX: M06.9 Rheumatoid arthritis, unspecified (principal)
CPT/HCPCS: 96365; J7050; A4216; J0129

== ENCOUNTER → 2021-03-05 10:54 | Outpatient (CLI) | payer MEDICARE, SELFPAY ==
[2020-06-07 08:50] VITALS: BMI 19.4
[2021-03-05 10:58] VITALS: BP 127/60; PULSE 72; RESP 16; TEMP 35.6; O2SAT 97
[2021-03-05] MEDS: 0.9% NaCl IVPB Med Flush (250 mL) 15 ML IV (11:13)
[2021-03-05] MEDS: 0.9% NaCl Peripheral Flush Adult/Peds IV ×4 (11:31→12:19)
[2021-03-05 11:56] LABS: Absolute Lymphocyte Count 0.98 X10^3/uL (0.83-4.51); Absolute Neutrophil Count 3.3 X10^3/uL (2.0-7.7); Basophil# 0.01 X10^3/uL; Basophil% 0.2 % (0-1); Eosinophil# 0.02 X10^3/uL; Eosinophils% 0.4 % (0-5); Hemoglobin 11.8 g/dL (12.0-15.0); Lymphocyte # 0.98 X10^3/ul (0.83-4.51); Lymphocyte % 20.7 % (19-41); Mean Corp Hgb Conc 33.7 g/dL (32-36); Mean Corpuscular Hgb 31.9 pg (27.0-32.0); Mean Corpuscular Volume 94.6 fL (81-99); Monocyte# 0.46 X10^3/uL; Monocyte% 9.7 % (0-10); NRBC Flagged by Analyzer 0 % (0-5); Neutrophil # 3.26 X10^3/uL (2.7-7.7); Neutrophil % 68.8 % (47-70); Platelet Count 137 K/mm3 (150-450); RBC Distribution Width CV 13.2 % (11.6-14.6); RBC Distribution Width SD 45.4 fl (35.1-43.9); White Blood Count 4.7 K/mm3 (4.4-11.0)
[2021-03-05 12:09] LABS: ALB/GLOB Ratio 0.9 RATIO (0.9-2.4); AST(SGOT) 20 U/L (15-37); Alanine Aminotransfer ALT/SGPT 22 U/L (13-56); Alkaline Phosphatase 53 U/L (45-117); Anion Gap 4 (5-15); BUN 20 mg/dL (7-18); BUN/Creat Ratio 23.4 RATIO (10-20); Calcium,Total 8.9 mg/dL (8.5-10.1); Chloride 107 mmol/L (98-107); Creatinine, Serum 0.85 mg/dL (0.55-1.02); EST Glomerular Filtration Rate 67 mL/min (>60); Est Glom Filt Rate - Afr Amer 82 mL/min (>60); Globulin 3.5 g/dL (2.2-4.2); Glucose 105 mg/dL (74-106); Potassium 4.5 mmol/L (3.5-5.1); Protein, Total 6.5 g/dL (6.4-8.2); Sodium Level 137 mmol/L (136-145)
[2021-03-05 12:23] VITALS: BP 129/67; PULSE 78
== END ==
PROVIDERS: PCP Family Medicine; Referring Provider Internal Medicine Rheumatology; Visit Provider Internal Medicine Rheumatology
DX: M06.9 Rheumatoid arthritis, unspecified (principal); M05.70 Rheumatoid arthritis with rheumatoid factor of unspecified site without organ or systems involvement
CPT/HCPCS: 96365; 36591; 80053; 85025; J7050; A4216; J0129

== ENCOUNTER → 2021-03-21 11:22 | Outpatient (CLI) | payer MEDICARE, SELFPAY ==
[2020-06-07 08:50] VITALS: BMI 19.4
--- NOTE | 2021-03-21 11:28 | RAD_ITS ---
EXAM: XR LEFT ANKLE COMPLETE, 3 OR MORE VIEWS CLINICAL INDICATION: ANKLE PAIN TECHNIQUE: Frontal, lateral and oblique views of the left ankle. This report was created using [employer] report generation technology. COMPARISON: 12.13.19. FINDINGS: BONES/JOINTS: Intramedullary eileen transfixing a healed distal fibular fracture. 3 screws transfix a distal component. There is a calcaneal spur. Preservation of the joint space. No sclerotic or destructive changes observed. SOFT TISSUES: Unremarkable. No soft tissue swelling or gas. No radiopaque foreign body. RAD/Ankle min 3 Views IMPRESSION: No acute findings in the left ankle. Electronically Signed: David Covington MD at 21:37 EST , Service support ,
== END ==
PROVIDERS: PCP Family Medicine; Referring Provider Podiatrist; Visit Provider Podiatrist
DX: L97.329 Non-pressure chronic ulcer of left ankle with unspecified severity (principal)
CPT/HCPCS: 73610

== ENCOUNTER → 2021-04-02 10:50 | Outpatient (CLI) | payer MEDICARE, SELFPAY ==
[2020-06-07 08:50] VITALS: BMI 19.4
[2021-04-02 11:04] VITALS: BP 152/52; PULSE 76; RESP 16; TEMP 36.4; O2SAT 99; BMI 22.4
[2021-04-02] MEDS: 0.9% NaCl IVPB Med Flush (250 mL) 15 ML IV (11:15)
[2021-04-02] MEDS: 0.9 % NaCl (Sterile) Posiflush 10 mL IV (11:25)
[2021-04-02] MEDS: 0.9% NaCl Peripheral Flush Adult/Peds IV (12:28)
[2021-04-02 12:29] VITALS: BP 138/52; PULSE 64; O2SAT 100
== END ==
PROVIDERS: PCP Family Medicine; Referring Provider Internal Medicine Rheumatology; Visit Provider Internal Medicine Rheumatology
DX: M05.70 Rheumatoid arthritis with rheumatoid factor of unspecified site without organ or systems involvement (principal)
CPT/HCPCS: 96365; J7050; A4216; J0129

== ENCOUNTER → 2021-04-30 10:35 | Outpatient (CLI) | payer MEDICARE, SELFPAY ==
[2020-06-07 08:50] VITALS: BMI 19.4
[2021-04-30] MEDS: 0.9 % NaCl (Sterile) Posiflush 10 mL IV (10:50)
[2021-04-30 10:51] VITALS: BP 128/64; PULSE 63; RESP 16; TEMP 36.2; O2SAT 99; BMI 22.4
[2021-04-30] MEDS: 0.9% NaCl IVPB Med Flush (250 mL) 15 ML IV (10:54)
[2021-04-30] MEDS: 0.9% NaCl VAD Flush IV (12:11)
[2021-04-30 12:16] VITALS: BP 124/60; PULSE 66; RESP 16; TEMP 36.3; O2SAT 99
== END ==
PROVIDERS: PCP Family Medicine; Referring Provider Internal Medicine Rheumatology; Visit Provider Internal Medicine Rheumatology
DX: M05.70 Rheumatoid arthritis with rheumatoid factor of unspecified site without organ or systems involvement (principal)
CPT/HCPCS: 96365; J7050; A4216; J0129

== ENCOUNTER 2021-05-28 10:59 | Outpatient (CLI) | payer MEDICARE, SELFPAY ==
[2020-06-07 08:50] VITALS: BMI 19.4
[2021-05-28] MEDS: 0.9% NaCl VAD Flush IV ×2 (11:23→11:34)
[2021-05-28] MEDS: 0.9% NaCl IVPB Med Flush (250 mL) 15 ML IV (11:36)
[2021-05-28 11:38] VITALS: BP 110/51; PULSE 68; RESP 16; TEMP 37.1; O2SAT 98
[2021-05-28 11:45] LABS: Absolute Lymphocyte Count 1.04 X10^3/uL (0.83-4.51); Absolute Neutrophil Count 2.1 X10^3/uL (2.0-7.7); Basophil# 0.02 X10^3/uL; Basophil% 0.6 % (0-1); Eosinophil# 0.04 X10^3/uL; Eosinophils% 1.1 % (0-5); Hemoglobin 12.8 g/dL (12.0-15.0); Lymphocyte # 1.04 X10^3/ul (0.83-4.51); Lymphocyte % 28.7 % (19-41); Mean Corp Hgb Conc 32.8 g/dL (32-36); Mean Corpuscular Hgb 30.9 pg (27.0-32.0); Mean Corpuscular Volume 94.2 fL (81-99); Mean Platelet Vol. 10.4 fl (6.2-12.0); Monocyte# 0.41 X10^3/uL; Monocyte% 11.3 % (0-10); NRBC Flagged by Analyzer 0 % (0-5); Neutrophil # 2.11 X10^3/uL (2.7-7.7); Platelet Count 170 K/mm3 (150-450); RBC Distribution Width CV 13.7 % (11.6-14.6); RBC Distribution Width SD 47.3 fl (35.1-43.9); Red Blood Count 4.14 M/mm3 (4.2-5.4); White Blood Count 3.6 K/mm3 (4.4-11.0)
[2021-05-28 12:32] VITALS: BP 126/50; PULSE 70; TEMP 36
[2021-05-28 12:35] LABS: AST(SGOT) 16 U/L (15-37); Alanine Aminotransfer ALT/SGPT 18 U/L (13-56); Albumin, Serum 3.3 g/dL (3.2-5.0); Alkaline Phosphatase 53 U/L (45-117); Anion Gap 5 (5-15); BUN 15 mg/dL (7-18); BUN/Creat Ratio 19.8 RATIO (10-20); Calcium,Total 8.9 mg/dL (8.5-10.1); Chloride 107 mmol/L (98-107); Creatinine, Serum 0.76 mg/dL (0.55-1.02); EST Glomerular Filtration Rate 77 mL/min (>60); Est Glom Filt Rate - Afr Amer 93 mL/min (>60); Globulin 3.3 g/dL (2.2-4.2); Glucose 99 mg/dL (74-106); Potassium 4.2 mmol/L (3.5-5.1); Protein, Total 6.6 g/dL (6.4-8.2); Sodium Level 139 mmol/L (136-145)
== END 2021-05-28 23:59 | disposition short-term general hospital (02) ==
LOC: MEDOUTP 10:59
PROVIDERS: PCP Family Medicine; Referring Provider Internal Medicine Rheumatology; Visit Provider Internal Medicine Rheumatology
DX: M05.70 Rheumatoid arthritis with rheumatoid factor of unspecified site without organ or systems involvement (principal); M50.30 Other cervical disc degeneration, unspecified cervical region; I25.10 Atherosclerotic heart disease of native coronary artery without angina pectoris; Z85.3 Personal history of malignant neoplasm of breast; Z79.899 Other long term (current) drug therapy
CPT/HCPCS: 96365; 36415; 80053; 85025; J7050; A4216; J0129

== ENCOUNTER 2021-06-25 10:50 | Outpatient (CLI) | payer MEDICARE, SELFPAY ==
[2020-06-07 08:50] VITALS: BMI 19.4
[2021-06-25] MEDS: 0.9% NaCl VAD Flush IV ×2 (11:06→12:22)
[2021-06-25 11:13] VITALS: BP 112/51; PULSE 64; RESP 16; TEMP 36.3; O2SAT 100; BMI 21.9
[2021-06-25] MEDS: 0.9% NaCl IVPB Med Flush (250 mL) 15 ML IV (11:15)
== END 2021-06-25 23:59 | disposition home or self-care (01) ==
LOC: MEDOUTP 10:50
PROVIDERS: PCP Family Medicine; Referring Provider Internal Medicine Rheumatology; Visit Provider Internal Medicine Rheumatology
DX: M05.70 Rheumatoid arthritis with rheumatoid factor of unspecified site without organ or systems involvement (principal)
CPT/HCPCS: 96365; J7050; A4216; J0129

== ENCOUNTER 2021-07-03 13:02 | Outpatient (CLI) | payer MEDICARE, SELFPAY ==
[2020-06-07 08:50] VITALS: BMI 19.4
--- NOTE | 2021-07-03 13:04 | BI_ITS ---
MAMMOGRAPHY - UNILATERAL SCREENING: LEFT BREAST REASON FOR EXAM: Female, 85 years old. Routine annual screening examination (unilateral). PERTINENT HISTORY: Personal history of breast cancer. Prior right mastectomy and radiation therapy. Prior left stereotactic breast biopsy. TECHNIQUE: Digital unilateral breast giovanny (3D mammographic acquisition) in the CC and MLO projections. 2-D mediolateral oblique (MLO) and craniocaudad (CC) views of both breasts were obtained. CAD: Full Field Digital Mammography with Computer Added Detection was performed. COMPARISON: Comparison is made with prior study dated 07/02/2020 and 06/30/2019. FINDINGS: Breast Composition: The breasts are heterogeneously dense, which may obscure small masses. There are no dominant masses or suspicious calcifications. The port from a left-sided portacatheter is seen in the superior medial aspect of the breast. There are 2 tissue markers in the central portion of the left breast. No other significant abnormalities are identified. There has been no significant change since the prior study. BI/SCREEN MAMM (CAD) W/GIOVANNY UNI L IMPRESSION: Stable unilateral screening mammogram. Yearly follow-up mammogram recommended. (A) ASSESSMENT CATEGORY: BIRADS Category 2: Benign. A letter regarding these results will be sent to the patient by the facility within 30 days. Approximately 10% of breast cancers are not detected by mammography. A normal mammogram should not delay biopsy of a clinically suspicious abnormality. [id number] Electronically Signed: Aneudy Cardenas MD at 13:40 EST ,
== END 2021-07-03 23:59 | disposition home or self-care (01) ==
LOC: OPBI 13:02
PROVIDERS: PCP Family Medicine; Visit Provider Internal Medicine Medical Oncology
DX: Z12.31 Encounter for screening mammogram for malignant neoplasm of breast (principal)
CPT/HCPCS: 77063; 77067

== ENCOUNTER 2021-07-23 12:05 | Outpatient (CLI) | payer MEDICARE, SELFPAY ==
[2020-06-07 08:50] VITALS: BMI 19.4
[2021-07-23] MEDS: 0.9 % NaCl (Sterile) Posiflush 10 mL IV (12:16)
[2021-07-23] MEDS: 0.9% NaCl VAD Flush IV ×2 (12:54→13:49)
[2021-07-23] MEDS: 0.9% NaCl IVPB Med Flush (250 mL) 15 ML IV (12:55)
[2021-07-23 12:59] VITALS: BP 126/69; PULSE 69; RESP 16; TEMP 36.6; O2SAT 96
[2021-07-23 13:51] VITALS: BP 142/78; PULSE 65; RESP 16; TEMP 36.1; O2SAT 96
== END 2021-07-23 23:59 | disposition home or self-care (01) ==
LOC: MEDOUTP 12:06
PROVIDERS: PCP Family Medicine; Referring Provider Internal Medicine Rheumatology; Visit Provider Internal Medicine Rheumatology
DX: M05.70 Rheumatoid arthritis with rheumatoid factor of unspecified site without organ or systems involvement (principal)
CPT/HCPCS: 96365; J7050; A4216; J0129

== ENCOUNTER → 2021-08-20 | Outpatient (CLI) | payer MEDICARE, SELFPAY ==
[2020-06-07 08:50] VITALS: BMI 19.4
[2021-08-20 11:15] VITALS: BP 123/63; PULSE 68; RESP 16; TEMP 36.8; O2SAT 98; BMI 22.4
[2021-08-20 11:22] LABS: Absolute Lymphocyte Count 1.06 X10^3/uL (0.83-4.51); Absolute Neutrophil Count 2.6 X10^3/uL (2.0-7.7); Basophil# 0.02 X10^3/uL; Basophil% 0.5 % (0-1); Eosinophil# 0.05 X10^3/uL; Eosinophils% 1.2 % (0-5); Hematocrit 37.4 % (37-47); Hemoglobin 12.5 g/dL (12.0-15.0); Lymphocyte # 1.06 X10^3/ul (0.83-4.51); Lymphocyte % 25.1 % (19-41); Mean Corp Hgb Conc 33.4 g/dL (32-36); Mean Corpuscular Volume 95.7 fL (81-99); Mean Platelet Vol. 10.7 fl (6.2-12.0); Monocyte# 0.46 X10^3/uL; Monocyte% 10.9 % (0-10); NRBC Flagged by Analyzer 0 % (0-5); Neutrophil # 2.62 X10^3/uL (2.7-7.7); Neutrophil % 62.1 % (47-70); Platelet Count 179 K/mm3 (150-450); RBC Distribution Width CV 13.4 % (11.6-14.6); RBC Distribution Width SD 47.2 fl (35.1-43.9); Red Blood Count 3.91 M/mm3 (4.2-5.4); White Blood Count 4.2 K/mm3 (4.4-11.0)
[2021-08-20 11:37] LABS: ALB/GLOB Ratio 1.1 RATIO (0.9-2.4); AST(SGOT) 17 U/L (15-37); Alanine Aminotransfer ALT/SGPT 20 U/L (13-56); Albumin, Serum 3.4 g/dL (3.2-5.0); Alkaline Phosphatase 49 U/L (45-117); Anion Gap 7 (5-15); BUN 18 mg/dL (7-18); BUN/Creat Ratio 21.6 RATIO (10-20); Calcium,Total 8.6 mg/dL (8.5-10.1); Chloride 107 mmol/L (98-107); Creatinine, Serum 0.83 mg/dL (0.55-1.02); EST Glomerular Filtration Rate 69 mL/min (>60); Est Glom Filt Rate - Afr Amer 84 mL/min (>60); Globulin 3.2 g/dL (2.2-4.2); Glucose 113 mg/dL (74-106); Potassium 4.7 mmol/L (3.5-5.1); Protein, Total 6.6 g/dL (6.4-8.2); Sodium Level 140 mmol/L (136-145)
[2021-08-20] MEDS: 0.9% NaCl VAD Flush IV (12:26)
[2021-08-20 12:34] VITALS: BP 149/74; PULSE 70; RESP 16; O2SAT 98
== END | disposition home or self-care (01) ==
LOC: MEDOUTP 10:41
PROVIDERS: PCP Family Medicine; Referring Provider Internal Medicine Rheumatology; Visit Provider Internal Medicine Rheumatology
CPT/HCPCS: 36591; 80053; 85025; 96365; J7050; A4216; J0129

== ENCOUNTER → 2021-09-19 | Outpatient (CLI) | payer MEDICARE, SELFPAY ==
[2020-06-07 08:50] VITALS: BMI 19.4
[2021-09-19 11:15] VITALS: BP 121/49; PULSE 65; RESP 16; TEMP 36.4; O2SAT 100
[2021-09-19] MEDS: 0.9 % NaCl (Sterile) Posiflush 10 mL IV (11:15)
[2021-09-19] MEDS: 0.9% NaCl IVPB Med Flush (250 mL) 15 ML IV (11:19)
[2021-09-19] MEDS: 0.9% NaCl VAD Flush IV (12:22)
== END | disposition home or self-care (01) ==
LOC: MEDOUTP 10:56
PROVIDERS: PCP Family Medicine; Referring Provider Internal Medicine Rheumatology; Visit Provider Internal Medicine Rheumatology
DX: M05.70 Rheumatoid arthritis with rheumatoid factor of unspecified site without organ or systems involvement (principal)
CPT/HCPCS: 96365; J7050; A4216; J0129

== ENCOUNTER → 2021-10-17 | Outpatient (CLI) | payer MEDICARE, SELFPAY ==
[2020-06-07 08:50] VITALS: BMI 19.4
[2021-10-17 10:55] VITALS: BP 126/64; PULSE 74; RESP 14; TEMP 36.2; O2SAT 98
[2021-10-17] MEDS: 0.9 % NaCl (Sterile) Posiflush 10 mL IV (11:07)
[2021-10-17] MEDS: 0.9% NaCl IVPB Med Flush (250 mL) 15 ML IV (11:15)
[2021-10-17 11:55] VITALS: BP 127/66; PULSE 66; RESP 16; TEMP 36; O2SAT 100
[2021-10-17] MEDS: 0.9% NaCl VAD Flush IV (12:06)
[2021-10-17 12:08] VITALS: BP 127/66; PULSE 66; RESP 16; TEMP 36; O2SAT 100
== END | disposition home or self-care (01) ==
LOC: MEDOUTP 10:47
PROVIDERS: PCP Family Medicine; Referring Provider Internal Medicine Rheumatology; Visit Provider Internal Medicine Rheumatology
DX: M05.70 Rheumatoid arthritis with rheumatoid factor of unspecified site without organ or systems involvement (principal)
CPT/HCPCS: 96365; J7050; A4216; J0129

== ENCOUNTER → 2021-11-14 | Outpatient (CLI) | payer MEDICARE, SELFPAY ==
[2020-06-07 08:50] VITALS: BMI 19.4
[2021-11-14 10:53] VITALS: BP 135/53; PULSE 74; RESP 16; TEMP 35.9; O2SAT 98; BMI 21.3
[2021-11-14] MEDS: 0.9 % NaCl (Sterile) Posiflush 10 mL IV (11:01)
[2021-11-14] MEDS: 0.9% NaCl IVPB Med Flush (250 mL) 15 ML IV (11:07)
[2021-11-14] MEDS: 0.9% NaCl VAD Flush IV (12:15)
== END | disposition home or self-care (01) ==
LOC: MEDOUTP 10:43
PROVIDERS: PCP Family Medicine; Referring Provider Internal Medicine Rheumatology; Visit Provider Internal Medicine Rheumatology
DX: M05.70 Rheumatoid arthritis with rheumatoid factor of unspecified site without organ or systems involvement (principal)
CPT/HCPCS: 96365; J7050; A4216; J0129

== ENCOUNTER → 2021-11-20 | Outpatient (CLI) | payer MEDICARE, SELFPAY ==
[2020-06-07 08:50] VITALS: BMI 19.4
[2021-11-20 10:09] LABS: Absolute Lymphocyte Count 1.38 X10^3/uL (0.83-4.51); Absolute Neutrophil Count 1.8 X10^3/uL (2.0-7.7); Basophil# 0.03 X10^3/uL; Basophil% 0.8 % (0-1); Eosinophil# 0.06 X10^3/uL; Eosinophils% 1.6 % (0-5); Hematocrit 38.9 % (37-47); Hemoglobin 12.9 g/dL (12.0-15.0); Lymphocyte # 1.38 X10^3/ul (0.83-4.51); Mean Corp Hgb Conc 33.2 g/dL (32-36); Mean Corpuscular Hgb 31.8 pg (27.0-32.0); Mean Corpuscular Volume 95.8 fL (81-99); Mean Platelet Vol. 10.8 fl (6.2-12.0); Monocyte# 0.51 X10^3/uL; Monocyte% 13.7 % (0-10); NRBC Flagged by Analyzer 0 % (0-5); Neutrophil # 1.75 X10^3/uL (2.7-7.7); Neutrophil % 46.9 % (47-70); Platelet Count 186 K/mm3 (150-450); RBC Distribution Width CV 14.3 % (11.6-14.6); RBC Distribution Width SD 50.2 fl (35.1-43.9); Red Blood Count 4.06 M/mm3 (4.2-5.4); White Blood Count 3.7 K/mm3 (4.4-11.0)
[2021-11-20 10:14] LABS: ALB/GLOB Ratio 1.1 RATIO (0.9-2.4); AST(SGOT) 16 U/L (15-37); Alanine Aminotransfer ALT/SGPT 24 U/L (13-56); Albumin, Serum 3.5 g/dL (3.2-5.0); Alkaline Phosphatase 50 U/L (45-117); Anion Gap 7 (5-15); BUN 14 mg/dL (7-18); BUN/Creat Ratio 18.5 RATIO (10-20); Calcium,Total 8.7 mg/dL (8.5-10.1); Chloride 106 mmol/L (98-107); Creatinine, Serum 0.76 mg/dL (0.55-1.02); EST Glomerular Filtration Rate 77 mL/min (>60); Est Glom Filt Rate - Afr Amer 93 mL/min (>60); Globulin 3.2 g/dL (2.2-4.2); Glucose 107 mg/dL (74-106); Potassium 3.9 mmol/L (3.5-5.1); Protein, Total 6.7 g/dL (6.4-8.2); Sodium Level 138 mmol/L (136-145)
[2021-11-20 10:21] LABS: AST(SGOT) 19 U/L (15-37); Alanine Aminotransfer ALT/SGPT 25 U/L (13-56); Albumin, Serum 3.4 g/dL (3.2-5.0); Alkaline Phosphatase 51 U/L (45-117); Bilirubin, Direct 0.16 mg/dL (0.00-0.30); Cholesterol 133 mg/dL (200); Globulin 3.3 g/dL (2.2-4.2); High Density Lipoprotein 72 mg/dL; Protein, Total 6.7 g/dL (6.4-8.2); Triglycerides 111 mg/dL; Very Low Density Lipoprotein 22 mg/dL (5-40)
[2021-11-20 11:00] LABS: Thyroid Stim Hormone (TSH) 5.02 uIU/mL (0.358-3.74)
== END | disposition home or self-care (01) ==
LOC: MTLAB 08:10
PROVIDERS: Internal Medicine Cardiovascular Disease; Internal Medicine Rheumatology; PCP Family Medicine; Referring Provider Family Medicine; Visit Provider Family Medicine
DX: E78.5 Hyperlipidemia, unspecified (principal); M05.70 Rheumatoid arthritis with rheumatoid factor of unspecified site without organ or systems involvement; I25.10 Atherosclerotic heart disease of native coronary artery without angina pectoris; M50.30 Other cervical disc degeneration, unspecified cervical region; Z79.899 Other long term (current) drug therapy; Z85.3 Personal history of malignant neoplasm of breast
CPT/HCPCS: 36415; 80053; 80061; 80076; 84443; 85025

== ENCOUNTER → 2021-12-12 | Outpatient (CLI) | payer MEDICARE, SELFPAY ==
[2020-06-07 08:50] VITALS: BMI 19.4
[2021-12-12] MEDS: 0.9 % NaCl (Sterile) Posiflush 10 mL IV (11:05)
[2021-12-12 11:09] VITALS: BP 137/39; PULSE 61; RESP 16; TEMP 36.4; O2SAT 97; BMI 21.3
[2021-12-12] MEDS: 0.9% NaCl IVPB Med Flush (250 mL) 15 ML IV (11:15)
[2021-12-12] MEDS: 0.9% NaCl VAD Flush IV (12:16)
[2021-12-12 12:17] VITALS: BP 135/43; PULSE 57; RESP 16; O2SAT 98
== END | disposition home or self-care (01) ==
LOC: MEDOUTP 10:52
PROVIDERS: PCP Family Medicine; Referring Provider Internal Medicine Rheumatology; Visit Provider Internal Medicine Rheumatology
DX: M05.70 Rheumatoid arthritis with rheumatoid factor of unspecified site without organ or systems involvement (principal)
CPT/HCPCS: 96365; J7050; A4216; J0129

== ENCOUNTER → 2022-01-09 | Outpatient (CLI) | payer MEDICARE, SELFPAY ==
[2020-06-07 08:50] VITALS: BMI 19.4
[2022-01-09 11:16] VITALS: BP 119/59; PULSE 64; RESP 16; TEMP 35.8; O2SAT 98; BMI 21.3
[2022-01-09] MEDS: 0.9% NaCl IVPB Med Flush (250 mL) 15 ML IV (11:21)
[2022-01-09] MEDS: 0.9% NaCl Peripheral Flush Adult/Peds IV (12:22)
== END | disposition home or self-care (01) ==
LOC: MEDOUTP 10:56
PROVIDERS: PCP Family Medicine; Referring Provider Internal Medicine Rheumatology; Visit Provider Internal Medicine Rheumatology
DX: M05.70 Rheumatoid arthritis with rheumatoid factor of unspecified site without organ or systems involvement (principal)
CPT/HCPCS: 96365; J7050; A4216; J0129

== ENCOUNTER → 2022-01-20 | Outpatient (CLI) | payer MEDICARE, SELFPAY ==
[2020-06-07 08:50] VITALS: BMI 19.4
--- NOTE | 2022-01-20 07:23 | ECHOD_ITS ---
Reason For Study: CAD/ASHD Procedure This was a 2D Doppler, Color Flow transthoracic echocardiogram. Myocardial strain analysis was performed in this exam to aid in the assessment of cardiac function. Exam performed in department. Left Ventricle Normal LV size. Segmental dysfunction with preserved ejection fraction (see wall motion). The estimated ejection fraction is 55 %. Diastolic function is indeterminate. [place] : Akinetic. Right Ventricle Normal RV size. Normal systolic function. Atria The left atrium is moderately enlarged. The right atrium is severely enlarged. No doppler evidence for ASD. Mitral Valve There is moderate mitral annular calcification. Mild diffuse mitral valve thickening. Mild mitral valve prolapse, posterior leaflet. Mild-Moderate (1-2+) mitral valve insufficiency. Tricuspid Valve Normal tricuspid valve. Mild to moderate (1-2+) tricuspid valve insufficiency. Right ventricular systolic pressure estimated to be 27 mmHg. Aortic Valve Trisinus/trileaflet aortic valve. Moderate focal aortic valve calcification. Pulmonic Valve The pulmonic valve is not well visualized. Mild (1+) pulmonic valve insufficiency. Great Vessels Normal sized aortic root. Pericardium/Pleural Trivial pericardial effusion. There are no echocardiographic indications of cardiac tamponade. MMode/2D Measurements & Calculations LVIDd: 4.8 cm IVSd: 0.82 cm Ao root diam: 2.9 cm LVIDs: 3.5 cm LVPWd: 1.1 cm LA dimension: 4.3 cm RVDd: 3.2 cm FS: 26.0 % LAV(MOD-bp): 80.6 ml LA A4 area: 25.7 cm2 RA A4 area: 29.5 cm2 LAV(MOD-bp) Indexed: 48.9 ml/m2 LAV(MOD-sp2): 76.4 ml LAV(MOD-sp4): 78.8 ml Time Measurements MV dec time: 0.22 sec Doppler Measurements & Calculations MV E max salbador: 64.3 cm/sec Lat Peak E' Salbador: 8.5 cm/sec Med Peak E' Salbador: 5.0 cm/sec MV A max salbador: 66.3 cm/sec E/E' lat: 7.5 E/E' med: 13.0 MV E/A: 0.97 MV V2 max: 72.1 cm/sec MV P1/2t max salbador: 72.1 cm/sec Ao V2 max: 137.1 cm/sec MV max P.1 mmHg MV P1/2t: 75.8 msec Ao max P.5 mmHg MV V2 mean: 48.3 cm/sec MV dec slope: 278.3 cm/sec2 Ao V2 mean: 100.2 cm/sec MV mean P.0 mmHg MVA(P1/2t): 2.9 cm2 Ao mean P.6 mmHg MV V2 VTI: 19.4 cm Ao V2 VTI: 29.8 cm LV V1 max: 73.1 cm/sec PA V2 max: 50.6 cm/sec TR max salbador: 246.0 cm/sec LV V1 max P.1 mmHg TR max P.2 mmHg LV V1 mean P.1 mmHg LV V1 mean: 49.2 cm/sec LV V1 VTI: 14.1 cm ECHO/Echo Complete Interpretation Summary Segmental dysfunction with preserved ejection fraction (see wall motion). The estimated ejection fraction is 55 %. The left atrium is moderately enlarged. The right atrium is severely enlarged. There is moderate mitral annular calcification. Mild diffuse mitral valve thickening. Mild-Moderate (1-2+) mitral valve insufficiency. Mild to moderate (1-2+) tricuspid valve insufficiency. Moderate focal aortic valve calcification. Mild (1+) pulmonic valve insufficiency. Trivial pericardial effusion. There are no echocardiographic indications of cardiac tamponade. Right ventricular systolic pressure estimated to be 27 mmHg. Diastolic function is indeterminate. Ordering Physician: Chucho Shane Referring Physician: Teagan Hall M.D. Performed By: Bernardo Noel RCS
--- NOTE | 2022-01-20 12:28 | STRESSREP_ITS ---
Stress Test Report Date: 01-20-2022 Procedure: Exercise tolerance test/imaging study Indications: Dyspnea on exertion; CAD; PCI; MVP/MR Consent: Per the patient Procedure: The patient exercised on a Aden protocol for 5 minutes and 45 seconds completing Stage I and 2 minutes and 45 seconds of Stage II achieving a peak heart rate of 110 bpm (81% predicted maximal heart rate) with a peak blood pressure 140/68 mmHg and a peak MET capacity of 7 METs. The baseline ECG demonstrated normal sinus rhythm; right IVCD pattern. The peak exercise ECG demonstrated no obvious ECG changes. There were no cardiac dysrhythmias pretest, during exercise, or recovery. The functional capacity was considered good. There was no complaint of chest discomfort during exercise or recovery. The examination was discontinued secondary to dyspnea. Impression: 1. Technically adequate (percent predicted maximal heart rate greater than 85%) exercise tolerance test 2. Peak exercise ECG with no obvious ECG changes 3. There were no cardiac dysrhythmias pretest, during exercise, or recovery 4. Nuclear images pending Myocardial perfusion imaging study: Technique: The patient was injected with 10.0 mCi of technetium 99m Cardiolite and subsequently rest SPECT Cardiolite nuclear imaging was obtained in the horizontal long, vertical long, and short axis views. The patient exercised on a Aden protocol for 5 minutes and 45 seconds completing Stage I and 2 minutes and 45 seconds of Stage II achieving a peak heart rate of 110 bpm (81% predicted maximal heart rate) with a peak blood pressure 140/68 mmHg and a peak MET capacity of 7 METs. The patient was injected with 33.9 mCi of technetium 99m Cardiolite and subsequently stress SPECT Cardiolite nuclear imaging was obtained in the horizontal long, vertical long, and short axis views. A gated Cardiolite study at peak stress was obtained. Interpretation: Rest and stress SPECT Cardiolite nuclear imaging status post realignment, normalization, and attenuation correction, demonstrates the appearance of diminished absence of myocardial perfusion/tracer uptake in portions of the distal anterolateral/inferolateral segments and the anteroapical/lateral apical segments without significant change between rest and stress. There is diminished end-systolic thickening and brightening. The gated Cardiolite study demonstrates myocardial thickening and inward wall motion. The reported LVEF is 75%. Impression: 1. Rest and stress SPECT Cardiolite nuclear imaging demonstrate myocardial perfusion changes appearing compatible with an area of previous myocardial injury/infarction involving portions of the distal anterolateral/inferior lateral segments and the anteroapical/lateral apical segments with no myocardial perfusion changes considered diagnostic for associated stress-induced myocardial ischemia. 2. The gated Cardiolite study reports an LVEF of 75%. This note was generated with [employer] software. It may contain incorrect words, spelling, and punctuation that were not noted in checking the note before signing.
== END | disposition home or self-care (01) ==
PROVIDERS: PCP Family Medicine; Referring Provider Internal Medicine Cardiovascular Disease; Visit Provider Internal Medicine Cardiovascular Disease
DX: I25.10 Atherosclerotic heart disease of native coronary artery without angina pectoris (principal); H53.2 Diplopia; R07.9 Chest pain, unspecified; E78.5 Hyperlipidemia, unspecified; R06.00 Dyspnea, unspecified; Z95.5 Presence of coronary angioplasty implant and graft
CPT/HCPCS: 78452; 93017; 93306; A9500; A4216

== ENCOUNTER → 2022-02-05 | Outpatient (CLI) | payer MEDICARE, SELFPAY ==
[2020-06-07 08:50] VITALS: BMI 19.4
--- NOTE | 2022-02-05 09:47 | CDU_ITS ---
Reason For Study: Double vision Rt. Velocities/BP Lt. Velocities/BP Prox CCA 67.4/9.7 cm/sec. Prox CCA 91.6/12.4 cm/sec. Mid CCA 57/8.8 cm/sec. Mid CCA 71.8/11.3 cm/sec. Dist CCA 54.1/6.9 cm/sec. Dist CCA 65.2/12.4 cm/sec. Prox ICA 46.6/6.9 cm/sec. Prox ICA 59.7/11.3 cm/sec. Mid ICA 85.3/15.4 cm/sec. Mid ICA 60.8/15.7 cm/sec. Dist ICA 117/18.8 cm/sec. Dist ICA 128.4/22.5 cm/sec. Rt. ICA/CCA = 2.05. Lt. ICA/CCA = 1.79. Prox ECA 50.4/4.1 cm/sec. Prox ECA 91.6/8 cm/sec. Rt. Vert. 50.9/9.1 cm/sec. Lt. Vert. 42.1/10.2 cm/sec. Right Extracranial There is homogeneous, smooth atherosclerotic plaque noted in the right common carotid artery. There is intimal thickening but no significant atherosclerotic plaque noted in the right internal carotid artery. The right internal carotid artery is very tortuous. There is intimal thickening but no significant atherosclerotic plaque noted in the right external carotid artery. Antegrade flow is noted in the right vertebral artery. Left Extracranial There is homogeneous, smooth atherosclerotic plaque noted in the left common carotid artery. There is intimal thickening but no significant atherosclerotic plaque noted in the left internal carotid artery. The left internal carotid artery is very tortuous. There is intimal thickening but no significant atherosclerotic plaque noted in the left external carotid artery. Antegrade flow is noted in the left vertebral artery. Procedure Carotid Duplex [id number]. This is a Carotid Duplex examination using B-mode, color flow and specral Doppler. Exam performed in department. VL/Carotid Duplex Ultrasound Interpretation Summary Normal right extracranial internal carotid. Normal left extracranial internal carotid. Elevated velocities likely due to ve ssel tortuosity. Patent and antegrade vertebrals bilaterally. Ordering Physician: Chucho Shane Referring Physician: Teagan Hall M.D. Performed By: Francesca Monterroso RVT
== END | disposition home or self-care (01) ==
LOC: CVS 09:40
PROVIDERS: PCP Family Medicine; Visit Provider Internal Medicine Cardiovascular Disease
DX: R55 Syncope and collapse (principal); H53.2 Diplopia; R07.9 Chest pain, unspecified; E78.5 Hyperlipidemia, unspecified; R06.00 Dyspnea, unspecified; I25.10 Atherosclerotic heart disease of native coronary artery without angina pectoris; Z95.5 Presence of coronary angioplasty implant and graft
CPT/HCPCS: 93880

== ENCOUNTER → 2022-02-06 | Outpatient (CLI) | payer MEDICARE, SELFPAY ==
[2020-06-07 08:50] VITALS: BMI 19.4
[2022-02-06 10:52] VITALS: BP 131/48; PULSE 73; RESP 16; TEMP 35.8; O2SAT 98; BMI 21.3
[2022-02-06] MEDS: 0.9% NaCl IVPB Med Flush (250 mL) 15 ML IV (11:16)
[2022-02-06] MEDS: 0.9 % NaCl (Sterile) Posiflush 10 mL IV (11:16)
[2022-02-06] MEDS: 0.9% NaCl VAD Flush IV (12:11)
[2022-02-06 12:15] VITALS: BP 138/57; PULSE 72; RESP 16; TEMP 36.4; O2SAT 100
== END | disposition home or self-care (01) ==
LOC: MEDOUTP 10:42
PROVIDERS: PCP Family Medicine; Referring Provider Internal Medicine Rheumatology; Visit Provider Internal Medicine Rheumatology
DX: M05.70 Rheumatoid arthritis with rheumatoid factor of unspecified site without organ or systems involvement (principal)
CPT/HCPCS: 96365; J7050; A4216; J0129

== ENCOUNTER → 2022-02-09 | Outpatient (CLI) | payer MEDICARE, SELFPAY ==
[2020-06-07 08:50] VITALS: BMI 19.4
[2022-02-09 15:43] LABS: Absolute Lymphocyte Count 1.01 X10^3/uL (0.83-4.51); Absolute Neutrophil Count 2.6 X10^3/uL (2.0-7.7); Basophil# 0.02 X10^3/uL; Basophil% 0.5 % (0-1); Eosinophil# 0.03 X10^3/uL; Eosinophils% 0.7 % (0-5); Hematocrit 42.9 % (37-47); Hemoglobin 13.9 g/dL (12.0-15.0); Lymphocyte # 1.01 X10^3/ul (0.83-4.51); Lymphocyte % 23.7 % (19-41); Mean Corp Hgb Conc 32.4 g/dL (32-36); Mean Corpuscular Volume 95.5 fL (81-99); Mean Platelet Vol. 11.2 fl (6.2-12.0); Monocyte# 0.59 X10^3/uL; Monocyte% 13.8 % (0-10); NRBC Flagged by Analyzer 0 % (0-5); Neutrophil # 2.61 X10^3/uL (2.7-7.7); Neutrophil % 61.1 % (47-70); Platelet Count 184 K/mm3 (150-450); RBC Distribution Width CV 13.2 % (11.6-14.6); RBC Distribution Width SD 46.1 fl (35.1-43.9); Red Blood Count 4.49 M/mm3 (4.2-5.4); White Blood Count 4.3 K/mm3 (4.4-11.0)
[2022-02-09 16:12] LABS: ALB/GLOB Ratio 1.1 RATIO (0.9-2.4); AST(SGOT) 17 U/L (15-37); Alanine Aminotransfer ALT/SGPT 24 U/L (13-56); Albumin, Serum 3.6 g/dL (3.2-5.0); Alkaline Phosphatase 51 U/L (45-117); Anion Gap 7 (5-15); BUN 17 mg/dL (7-18); BUN/Creat Ratio 22.9 RATIO (10-20); Calcium,Total 9.5 mg/dL (8.5-10.1); Chloride 107 mmol/L (98-107); Creatinine, Serum 0.74 mg/dL (0.55-1.02); EST Glomerular Filtration Rate 79 mL/min (>60); Est Glom Filt Rate - Afr Amer 95 mL/min (>60); Globulin 3.4 g/dL (2.2-4.2); Glucose 111 mg/dL (74-106); Potassium 4.3 mmol/L (3.5-5.1); Sodium Level 140 mmol/L (136-145); T4 Total, Thyroxin 9.4 ug/dL (4.8-13.9); Thyroid Stim Hormone (TSH) 0.46 uIU/mL (0.358-3.74)
== END | disposition home or self-care (01) ==
LOC: MTLAB 11:56
PROVIDERS: PCP Family Medicine; Referring Provider Internal Medicine Rheumatology; Visit Provider Internal Medicine Rheumatology
DX: M05.70 Rheumatoid arthritis with rheumatoid factor of unspecified site without organ or systems involvement (principal); M50.30 Other cervical disc degeneration, unspecified cervical region; I25.10 Atherosclerotic heart disease of native coronary artery without angina pectoris; Z79.899 Other long term (current) drug therapy; Z85.3 Personal history of malignant neoplasm of breast
CPT/HCPCS: 36415; 80053; 84436; 84443; 85025

== ENCOUNTER → 2022-02-24 | Outpatient (CLI) | payer MEDICARE, SELFPAY ==
[2020-06-07 08:50] VITALS: BMI 19.4
[2022-02-26 13:07] LABS: QNTFERON TB Mitogen Value 9.76 IU/mL (.); QNTFERON TB Nil Value 0.06 IU/mL (.); QNTFERON TB1+ Ag Value 0.23 IU/mL (.); QNTFERON TB2+ Ag Value 0.07 IU/mL (.)
[2022-03-03 12:39] LABS: QNTIFERON TB Positive Criteria Negative (Negative)
== END | disposition home or self-care (01) ==
LOC: MTLAB 11:46
PROVIDERS: PCP Family Medicine; Referring Provider Internal Medicine Rheumatology; Visit Provider Internal Medicine Rheumatology
DX: M05.70 Rheumatoid arthritis with rheumatoid factor of unspecified site without organ or systems involvement (principal)
CPT/HCPCS: 36415; 86480

== ENCOUNTER → 2022-03-06 | Outpatient (CLI) | payer MEDICARE, SELFPAY ==
[2020-06-07 08:50] VITALS: BMI 19.4
[2022-03-06 11:11] VITALS: BP 129/55; PULSE 80; TEMP 36.4; O2SAT 98
[2022-03-06] MEDS: 0.9% NaCl Peripheral Flush Adult/Peds IV (12:16)
== END | disposition home or self-care (01) ==
LOC: MEDOUTP 11:00
PROVIDERS: PCP Family Medicine; Referring Provider Internal Medicine Rheumatology; Visit Provider Internal Medicine Rheumatology
DX: M05.70 Rheumatoid arthritis with rheumatoid factor of unspecified site without organ or systems involvement (principal)
CPT/HCPCS: 96365; A4216; J0129

== ENCOUNTER → 2022-04-03 | Outpatient (CLI) | payer MEDICARE, SELFPAY ==
[2020-06-07 08:50] VITALS: BMI 19.4
[2022-04-03 10:57] VITALS: BP 115/65; PULSE 72; RESP 16; TEMP 36.4; O2SAT 99; BMI 20.5
[2022-04-03] MEDS: 0.9% NaCl IVPB Med Flush (250 mL) 15 ML IV (11:22)
== END | disposition home or self-care (01) ==
LOC: MEDOUTP 10:52
PROVIDERS: PCP Family Medicine; Referring Provider Internal Medicine Rheumatology; Visit Provider Internal Medicine Rheumatology
DX: M06.9 Rheumatoid arthritis, unspecified (principal)
CPT/HCPCS: 96365; J7050; A4216; J0129

== ENCOUNTER → 2022-05-22 | Outpatient (CLI) | payer MEDICARE, SELFPAY ==
[2020-06-07 08:50] VITALS: BMI 19.4
[2022-05-22 15:30] LABS: Absolute Lymphocyte Count 1.03 X10^3/uL (0.83-4.51); Absolute Neutrophil Count 4.5 X10^3/uL (2.0-7.7); Basophil# 0.02 X10^3/uL; Basophil% 0.3 % (0-1); Eosinophil# 0.04 X10^3/uL; Eosinophils% 0.6 % (0-5); Hematocrit 41.2 % (37-47); Hemoglobin 13.4 g/dL (12.0-15.0); Lymphocyte # 1.03 X10^3/ul (0.83-4.51); Lymphocyte % 15.9 % (19-41); Mean Corp Hgb Conc 32.5 g/dL (32-36); Mean Corpuscular Hgb 31.2 pg (27.0-32.0); Monocyte# 0.82 X10^3/uL; Monocyte% 12.7 % (0-10); NRBC Flagged by Analyzer 0 % (0-5); Neutrophil # 4.53 X10^3/uL (2.7-7.7); Neutrophil % 70.2 % (47-70); Platelet Count 178 K/mm3 (150-450); RBC Distribution Width CV 13.8 % (11.6-14.6); RBC Distribution Width SD 48.5 fl (35.1-43.9); Red Blood Count 4.29 M/mm3 (4.2-5.4); White Blood Count 6.5 K/mm3 (4.4-11.0)
[2022-05-22 16:22] LABS: ALB/GLOB Ratio 0.9 RATIO (0.9-2.4); AST(SGOT) 13 U/L (15-37); Alanine Aminotransfer ALT/SGPT 24 U/L (13-56); Albumin, Serum 3.4 g/dL (3.2-5.0); Alkaline Phosphatase 55 U/L (45-117); Anion Gap 10 (5-15); BUN 17 mg/dL (7-18); Calcium,Total 9.6 mg/dL (8.5-10.1); Chloride 104 mmol/L (98-107); Creatinine, Serum 0.77 mg/dL (0.55-1.02); EST Glomerular Filtration Rate 75 mL/min (>60); Est Glom Filt Rate - Afr Amer 91 mL/min (>60); Globulin 3.7 g/dL (2.2-4.2); Glucose 110 mg/dL (74-106); Potassium 3.9 mmol/L (3.5-5.1); Protein, Total 7.1 g/dL (6.4-8.2); Sodium Level 139 mmol/L (136-145)
== END | disposition home or self-care (01) ==
LOC: MTLAB 11:28
PROVIDERS: PCP Family Medicine; Referring Provider Internal Medicine Rheumatology; Visit Provider Internal Medicine Rheumatology
DX: M05.70 Rheumatoid arthritis with rheumatoid factor of unspecified site without organ or systems involvement (principal); Z79.899 Other long term (current) drug therapy
CPT/HCPCS: 36415; 80053; 85025

== ENCOUNTER → 2022-06-24 | Outpatient (CLI) | payer MEDICARE, SELFPAY ==
[2020-06-07 08:50] VITALS: BMI 19.4
[2022-06-24 10:38] VITALS: BP 128/54; PULSE 70; RESP 16; TEMP 36.4; O2SAT 95; BMI 20.3
[2022-06-24] MEDS: 0.9% NaCl IVPB Med Flush (250 mL) 15 ML IV (10:42)
[2022-06-24] MEDS: 0.9% NaCl Peripheral Flush Adult/Peds IV (11:44)
[2022-06-24 11:46] VITALS: BP 128/60; PULSE 75
== END | disposition home or self-care (01) ==
LOC: MEDOUTP 10:23
PROVIDERS: PCP Family Medicine; Referring Provider Internal Medicine Rheumatology; Visit Provider Internal Medicine Rheumatology
DX: M05.9 Rheumatoid arthritis with rheumatoid factor, unspecified (principal)
CPT/HCPCS: 96365; J7050; A4216; J0129

== ENCOUNTER → 2022-07-03 | Outpatient (CLI) | payer MEDICARE, SELFPAY ==
[2020-06-07 08:50] VITALS: BMI 19.4
--- NOTE | 2022-07-03 14:33 | CT_ITS ---
STUDY: CT BRAIN WITH AND WITHOUT CONTRAST REASON FOR EXAM: Female, 86 years old. Double vision RADIATION DOSAGE (If Supplied By Facility): CTDIvol = ( 44.99 ) mGy, DLP = ( 1614.72 ) mGycm TECHNIQUE: Transaxial CT imaging of the brain was performed pre and post contrast administration. The examination was performed with intravenous administration of IV 50mL Isovue-370. Individualized dose optimization techniques were used for this CT. COMPARISON: Comparison is made with prior study dated December 28, 2018. FINDINGS: Normal soft tissue structures. Normal calvarium. There is mild cerebral atrophy with widening of the extra-axial spaces and ventricular dilatation. There are areas of decreased attenuation within the white matter tracts of the supratentorial brain, consistent with microvascular disease changes. Normal basal ganglia and thalami. Normal brainstem. Normal cerebellum. There is no intracranial hemorrhage. There are no findings of an acute ischemic infarction. Atherosclerotic calcification of the vertebral arteries and cavernous portions of the internal carotid arteries bilaterally. Normal visualized paranasal sinuses. CT/Brain/Head W/WO Contrast IMPRESSION: Chronic involutional changes of the brain. Electronically Signed: Aneudy Cardenas MD at 15:07 EST ,
[2022-07-03 15:00] LABS: CREATININE FINGERSTICK < 0.9 mg/dL (0.55-1.02); EGFR FINGERSTICK > 60.0000 mL/min (>60)
== END | disposition home or self-care (01) ==
LOC: CT 14:32
PROVIDERS: PCP Family Medicine; Referring Provider Family Medicine; Visit Provider Family Medicine
DX: H53.2 Diplopia (principal)
CPT/HCPCS: 70470; Q9967

== ENCOUNTER → 2022-07-22 | Outpatient (CLI) | payer MEDICARE, SELFPAY ==
[2020-06-07 08:50] VITALS: BMI 19.4
[2022-07-22 12:26] VITALS: BP 123/51; PULSE 83; RESP 16; TEMP 36.7; O2SAT 98; BMI 20.9
[2022-07-22] MEDS: 0.9% NaCl IVPB Med Flush (250 mL) 15 ML IV (12:44)
[2022-07-22] MEDS: 0.9% NaCl Peripheral Flush Adult/Peds IV ×2 (12:46→13:55)
[2022-07-22 13:59] VITALS: BP 124/60; PULSE 75
== END | disposition home or self-care (01) ==
LOC: MEDOUTP 12:17
PROVIDERS: PCP Family Medicine; Referring Provider Internal Medicine Rheumatology; Visit Provider Internal Medicine Rheumatology
DX: M05.9 Rheumatoid arthritis with rheumatoid factor, unspecified (principal)
CPT/HCPCS: 96365; J7050; A4216; J0129

== ENCOUNTER → 2022-08-14 | Outpatient (CLI) | payer MEDICARE, SELFPAY ==
[2020-06-07 08:50] VITALS: BMI 19.4
[2022-08-14 12:27] LABS: Absolute Lymphocyte Count 1.25 X10^3/uL (0.83-4.51); Absolute Neutrophil Count 1.8 X10^3/uL (2.0-7.7); Basophil# 0.02 X10^3/uL; Basophil% 0.6 % (0-1); Eosinophil# 0.05 X10^3/uL; Eosinophils% 1.4 % (0-5); Hematocrit 38.7 % (37-47); Hemoglobin 12.3 g/dL (12.0-15.0); Lymphocyte # 1.25 X10^3/ul (0.83-4.51); Lymphocyte % 34.5 % (19-41); Mean Corp Hgb Conc 31.8 g/dL (32-36); Mean Corpuscular Hgb 30.5 pg (27.0-32.0); Mean Platelet Vol. 11.2 fl (6.2-12.0); Monocyte# 0.49 X10^3/uL; Monocyte% 13.5 % (0-10); NRBC Flagged by Analyzer 0 % (0-5); Neutrophil % 49.7 % (47-70); Platelet Count 169 K/mm3 (150-450); RBC Distribution Width CV 14.6 % (11.6-14.6); RBC Distribution Width SD 51.8 fl (35.1-43.9); Red Blood Count 4.03 M/mm3 (4.2-5.4); White Blood Count 3.6 K/mm3 (4.4-11.0)
[2022-08-14 12:55] LABS: AST(SGOT) 22 U/L (15-37); Alanine Aminotransfer ALT/SGPT 27 U/L (13-56); Albumin, Serum 3.2 g/dL (3.2-5.0); Alkaline Phosphatase 62 U/L (45-117); Anion Gap 3 (5-15); BUN 16 mg/dL (7-18); BUN/Creat Ratio 20.9 RATIO (10-20); Calcium,Total 9.2 mg/dL (8.5-10.1); Chloride 108 mmol/L (98-107); Creatinine, Serum 0.77 mg/dL (0.55-1.02); EST Glomerular Filtration Rate 76 mL/min (>60); Est Glom Filt Rate - Afr Amer 92 mL/min (>60); Globulin 3.3 g/dL (2.2-4.2); Glucose 105 mg/dL (74-106); Potassium 4.1 mmol/L (3.5-5.1); Protein, Total 6.5 g/dL (6.4-8.2); Sodium Level 136 mmol/L (136-145)
== END | disposition home or self-care (01) ==
PROVIDERS: PCP Family Medicine; Referring Provider Internal Medicine Rheumatology; Visit Provider Internal Medicine Rheumatology
DX: M05.70 Rheumatoid arthritis with rheumatoid factor of unspecified site without organ or systems involvement (principal); M50.30 Other cervical disc degeneration, unspecified cervical region; I25.10 Atherosclerotic heart disease of native coronary artery without angina pectoris; E03.9 Hypothyroidism, unspecified; Z79.899 Other long term (current) drug therapy; Z85.3 Personal history of malignant neoplasm of breast
CPT/HCPCS: 36415; 80053; 85025

== ENCOUNTER 2022-08-19 15:57 | Emergency (ER) | payer MEDICARE, SELFPAY ==
[2020-06-07 08:50] VITALS: BMI 19.4
[2022-08-19] VITALS (17 sets, daily range): BP systolic 128–152; BP diastolic 69–111; PULSE 79–96; RESP 13–34; TEMP 36.2–36.8; O2SAT 95–98; BMI 22.3
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
--- NOTE | 2022-08-19 16:10 | CT_ITS ---
STUDY: CT CERVICAL SPINE WITHOUT CONTRAST REASON FOR EXAM: Female, 86 years old. Trauma RADIATION DOSAGE (If Supplied By Facility): CTDIvol = ( 14.72 ) mGy, DLP = ( 263.79 ) mGycm TECHNIQUE: High resolution transaxial imaging was performed without contrast material. Sagittal and coronal images were reconstructed. Individualized dose optimization techniques were used for this CT. COMPARISON: Cervical spine x-rays June 26, 2013 FINDINGS: Normal craniovertebral junction. Normal anterior atlantoaxial articulation. Normal odontoid process. Normal cervical lordosis. Normal vertebral bodies and posterior osseous elements. C2-3: Normal endplates. Normal disc height and morphology. Normal central canal and intervertebral neuroforamina. C3-4: Normal endplates. Normal disc height and morphology. Normal central canal and intervertebral neuroforamina. C4-5: Grade 1 spondylolisthesis. Normal endplates. Normal disc height and mild bulging disc osteophyte complex.. Normal central canal and mild bilateral neural foraminal stenosis secondary to bony hypertrophy. C5-6: Grade 1 spondylolisthesis Normal endplates. Normal disc height and minor bulging disc osteophyte complex.. Normal central canal and intervertebral neuroforamina. C6-7: Narrowed disc space and endplate spurring.. Normal central canal and intervertebral neuroforamina. C7-T1: Normal endplates. Normal disc height and morphology. Normal central canal and intervertebral neuroforamina. Pleural-parenchymal scarring of the right pulmonary apex. Normal visualized soft tissue structures. No significant change since prior study CT/Spine Cervical without Contras IMPRESSION: Moderate spondylosis. No acute fracture or other pathology. Electronically Signed: Keyur Farrell MD at 16:55 EDT ,
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
[2022-08-19] MEDS: 0.9% Normal Saline 1,000 ML 999 ML IV (16:16)
[2022-08-19 16:19] LABS: Absolute Lymphocyte Count 1.98 X10^3/uL (0.83-4.51); Basophil# 0.03 X10^3/uL; Basophil% 0.5 % (0-1); Eosinophil# 0.05 X10^3/uL; Eosinophils% 0.9 % (0-5); Hematocrit 38.6 % (37-47); Hemoglobin 12.9 g/dL (12.0-15.0); Lymphocyte # 1.98 X10^3/ul (0.83-4.51); Lymphocyte % 34.6 % (19-41); Mean Corp Hgb Conc 33.4 g/dL (32-36); Mean Corpuscular Hgb 32.3 pg (27.0-32.0); Mean Corpuscular Volume 96.5 fL (81-99); Mean Platelet Vol. 10.6 fl (6.2-12.0); Monocyte# 0.58 X10^3/uL; Monocyte% 10.1 % (0-10); NRBC Flagged by Analyzer 0 % (0-5); Neutrophil # 3.03 X10^3/uL (2.7-7.7); Platelet Count 197 K/mm3 (150-450); RBC Distribution Width CV 14.8 % (11.6-14.6); RBC Distribution Width SD 52.3 fl (35.1-43.9); White Blood Count 5.7 K/mm3 (4.4-11.0)
--- NOTE | 2022-08-19 16:25 | RAD_ITS ---
STUDY: X-RAY - LEFT TIBIA AND FIBULA REASON FOR EXAM: Female, 86 years old. left leg pain TECHNIQUE: 3 view(s) of the tibia and fibula were obtained. COMPARISON: March 21, 2021 FINDINGS: Normal visualized tibia. . Healed fracture of the distal fibular shaft status post ORIF with indwelling orthopedic hardware. No acute fracture or dislocation at this time The soft tissue structures are unremarkable. No significant change since prior study RAD/Tibia & Fibula 2 Views IMPRESSION: Old healed fracture of the distal fibular shaft status post ORIF. Electronically Signed: Keyur Farrell MD at 16:41 EDT ,
[2022-08-19 16:45] LABS: Anion Gap 6 (5-15); BUN 20 mg/dL (7-18); Calcium,Total 8.7 mg/dL (8.5-10.1); Chloride 107 mmol/L (98-107); Creatinine, Serum 0.84 mg/dL (0.55-1.02); EST Glomerular Filtration Rate 69 mL/min (>60); Est Glom Filt Rate - Afr Amer 83 mL/min (>60); Estimated Creatinine Clearance 44.06 ml/min; Glucose 132 mg/dL (74-106); Potassium 3.8 mmol/L (3.5-5.1); Sodium Level 135 mmol/L (136-145); Troponin-I HS 41 pg/mL (3.0-54.0)
[2022-08-19 16:50] LABS: Alcohol, Blood (Medical)-Serum < 3.0 mg/dL
--- NOTE | 2022-08-19 19:12 | ED.RN ---
report called to noe Perez at [facility]
--- NOTE | 2022-08-19 19:32 | ED.RN ---
1800 critical care ground transport calls with 90min eta. per dr. dunlap pt does not need to go by air transport at this time.
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
== END 2022-08-19 21:11 | disposition short-term general hospital (02) ==
LOC: ED 16:36
PROVIDERS: Emergency Provider Student in an Organized Health Care Education/Training Program; PCP Family Medicine; Visit Provider Student in an Organized Health Care Education/Training Program
DX: S40.012A Contusion of left shoulder, initial encounter (principal); J90 Pleural effusion, not elsewhere classified; I25.10 Atherosclerotic heart disease of native coronary artery without angina pectoris; J98.11 Atelectasis; J98.4 Other disorders of lung; I25.2 Old myocardial infarction; V48.5XXA Car driver injured in noncollision transport accident in traffic accident, initial encounter; Z79.01 Long term (current) use of anticoagulants; Z95.5 Presence of coronary angioplasty implant and graft; Z79.899 Other long term (current) drug therapy
CPT/HCPCS: 96365; 70450; 71260; 72125; 73590; 74177; 80048; 82077; 84484; 85025; 93005; 99285; J7030; J7050; Q9967; A4216; J0129

== ENCOUNTER → 2022-08-19 | Outpatient (CLI) | payer MEDICARE, SELFPAY ==
[2020-06-07 08:50] VITALS: BMI 19.4
[2022-08-19 13:11] VITALS: BP 126/51; PULSE 70; RESP 16; TEMP 36.4; O2SAT 99; BMI 21.2
[2022-08-19] MEDS: 0.9% NaCl IVPB Med Flush (250 mL) 15 ML IV (13:38)
[2022-08-19 14:29] VITALS: BP 116/36; PULSE 65; RESP 16; O2SAT 100
== END | disposition home or self-care (01) ==
PROVIDERS: PCP Family Medicine; Referring Provider Internal Medicine Rheumatology; Visit Provider Internal Medicine Rheumatology
DX: M05.9 Rheumatoid arthritis with rheumatoid factor, unspecified (principal)
CPT/HCPCS: J7050; J0129

== ENCOUNTER → 2022-08-25 | Outpatient (CLI) | payer MEDICARE, SELFPAY ==
[2020-06-07 08:50] VITALS: BMI 19.4
--- NOTE | 2022-08-25 14:17 | US_ITS ---
PROCEDURE: ULTRASOUND GUIDED THORACENTESIS. DATE: August 25, 2022. INDICATION: Female, 86 years old. Right pleural effusion. PHYSICIAN: Aneudy Cardenas M.D. PROCEDURE: The risks, benefits, and alternatives to the procedure were explained to the patient. The specific risks of bleeding, infection, and pneumothorax requiring chest tube insertion were discussed and accepted. Written informed consent was obtained. Ultrasonographic evaluation of the right lower pleural space was carried out. An adequate pocket was identified. The patient was placed in the sitting, upright position. The overlying skin was prepped and draped in sterile fashion. 1% lidocaine was administered subcutaneously for local anesthesia. Under ultrasound guidance, a 5 Yoruba thoracentesis needle/catheter system was advanced into the right posterior lower pleural fluid collection. Approximately 740 mL of blood tinged fluid was drained. The catheter was removed, and a sterile dressing was applied. A specimen was collected and sent to the laboratory for analysis, as requested by the referring clinician. The patient tolerated the procedure well. A chest x-ray was ordered. US/Thoracentesis W US IMPRESSION: Ultrasound-guided right thoracentesis. Electronically Signed: Aneudy Cardenas MD at 15:39 EDT ,
[2022-08-25] MEDS: Lidocaine 2% (20 ml mdv) 20 ML Vial INFILT (14:55)
--- NOTE | 2022-08-25 15:00 | FLU_PTH ---
PATIENT: ROBERTO RASMUSSEN LOC: U#:[id number] AGE/SX: 86/F ROOM: RE08/25/[address]: Dr. Matteo Jonas MD : 1935 BED: DIS: 08/25/2022 SPEC #: [id number] RECD: 08/25/22 15:21 STATUS: SHAY DOWNEY #: [id number] ERNESTO: 08/25/22 15:[address]: Matteo Jonas DEPT: CYTOLOGY RECD BY: Hardy Jarrell ENTERED: 08/26/22 07:54 SP TYPE: Fluid OTHR DR: Dr. Teagan Hall MD Tissues: THORACIC FLUID Procedures: Special Stain Group II Surgery Specimen Level IV Cytospin Fluid HEADER OPERATION: Thoracentesis right chest PRE-OP DIAGNOSIS: Right pleural effusion TISSUE SUBMITTED: Thoracentesis fluid for cytology DIAGNOSIS CYTOLOGY Thoracentesis fluid for cytology (cytospin and cell block): Negative for malignant cells. See comment. SJ:mercedes 08/27/2022 COMMENT Clinical correlation and appropriate follow up are necessary. CYTOLOGY STUDY Slides are reviewed. CYTOLOGY GROSS Received is 100 ml of cloudy red fluid labeled with the patient's name and and designated per the requisition as thoracentesis. Submitted for cytology preparation including cell block. / mercedes 08/26/2022 TC:5 CPT: 45595, 50948
--- NOTE | 2022-08-25 15:10 | RAD_ITS ---
STUDY: X-RAY CHEST REASON FOR EXAM: Female, 86 years old. POST THORA TECHNIQUE: AP inspiration and expiration views. COMPARISON: None. FINDINGS: The patient is status post right thoracentesis. There is no evidence of pneumothorax. Evidence of multiple healing right rib fractures. Surgical clips are seen in the right axilla. RAD/Chest Insp/Exp 2 View IMPRESSION: Status post right thoracentesis. No evidence of pneumothorax. The lungs are clear. Electronically Signed: Aneudy Cardenas MD at 15:24 EDT ,
[2022-08-25 15:20] VITALS: BP 123/29; BP 134/52; BP 135/55; PULSE 79; PULSE 82; RESP 16; RESP 18; O2SAT 95; O2SAT 98; O2SAT 99
[2022-08-25 15:24] LABS: Cytology, Body Fluid / CSF SEE PATHOLOGY REPORT
== END | disposition home or self-care (01) ==
PROVIDERS: PCP Family Medicine; Referring Provider Internal Medicine Medical Oncology; Visit Provider Internal Medicine Medical Oncology
DX: J90 Pleural effusion, not elsewhere classified (principal)
CPT/HCPCS: 32555; 71046; 88108; 88305; 88313

== ENCOUNTER 2022-09-16 12:58 | Outpatient (CLI) | payer MEDICARE, SELFPAY ==
[2020-06-07 08:50] VITALS: BMI 19.4
[2022-09-16 13:19] VITALS: BP 122/59; PULSE 75; RESP 16; TEMP 36.4; O2SAT 100; BMI 19.6
[2022-09-16] MEDS: 0.9% NaCl IVPB Med Flush (250 mL) 15 ML IV (13:27)
[2022-09-16] MEDS: 0.9% NaCl Peripheral Flush Adult/Peds IV (14:42)
[2022-09-16 14:43] VITALS: BP 113/51; PULSE 76; RESP 16; TEMP 36.6; O2SAT 100
== END 2022-09-16 12:59 | disposition home or self-care (01) ==
LOC: MEDOUTP 12:58
PROVIDERS: PCP Family Medicine; Referring Provider Internal Medicine Rheumatology; Visit Provider Internal Medicine Rheumatology
DX: M05.70 Rheumatoid arthritis with rheumatoid factor of unspecified site without organ or systems involvement (principal)
CPT/HCPCS: 96365; J7050; A4216; J0129

== ENCOUNTER 2022-10-14 13:00 | Outpatient (CLI) | payer MEDICARE, SELFPAY ==
[2020-06-07 08:50] VITALS: BMI 19.4
[2022-10-14 13:05] VITALS: BP 127/49; PULSE 81; RESP 16; TEMP 36.3; O2SAT 98
[2022-10-14] MEDS: 0.9 % NaCl (Sterile) Posiflush 10 mL IV (13:05)
[2022-10-14] MEDS: 0.9% NaCl IVPB Med Flush (250 mL) 15 ML IV (13:17)
[2022-10-14] MEDS: 0.9% NaCl VAD Flush IV (14:20)
[2022-10-14 14:21] VITALS: BP 115/54; PULSE 71; RESP 16; TEMP 36.2; O2SAT 100
== END 2022-10-14 13:01 | disposition home or self-care (01) ==
PROVIDERS: PCP Family Medicine; Referring Provider Internal Medicine Rheumatology; Visit Provider Internal Medicine Rheumatology
DX: M05.70 Rheumatoid arthritis with rheumatoid factor of unspecified site without organ or systems involvement (principal)
CPT/HCPCS: 96365; J7050; A4216; J0129

== ENCOUNTER → 2022-10-30 | Outpatient (CLI) | payer MEDICARE, SELFPAY ==
[2020-06-07 08:50] VITALS: BMI 19.4
[2022-10-30 12:30] LABS: Absolute Neutrophil Count 1.9 X10^3/uL (2.0-7.7); Basophil# 0.02 X10^3/uL; Basophil% 0.5 % (0-1); Eosinophil# 0.06 X10^3/uL; Eosinophils% 1.6 % (0-5); Hematocrit 39.8 % (37-47); Hemoglobin 13.1 g/dL (12.0-15.0); Lymphocyte % 34.3 % (19-41); Mean Corp Hgb Conc 32.9 g/dL (32-36); Mean Corpuscular Hgb 31.2 pg (27.0-32.0); Mean Corpuscular Volume 94.8 fL (81-99); Mean Platelet Vol. 10.8 fl (6.2-12.0); Monocyte# 0.54 X10^3/uL; Monocyte% 14.2 % (0-10); NRBC Flagged by Analyzer 0 % (0-5); Neutrophil # 1.86 X10^3/uL (2.7-7.7); Neutrophil % 49.1 % (47-70); Platelet Count 179 K/mm3 (150-450); RBC Distribution Width CV 13.7 % (11.6-14.6); RBC Distribution Width SD 47.7 fl (35.1-43.9); White Blood Count 3.8 K/mm3 (4.4-11.0)
[2022-10-30 13:27] LABS: ALB/GLOB Ratio 0.9 RATIO (0.9-2.4); AST(SGOT) 19 U/L (15-37); Alanine Aminotransfer ALT/SGPT 20 U/L (13-56); Albumin, Serum 3.4 g/dL (3.2-5.0); Alkaline Phosphatase 60 U/L (45-117); Anion Gap 2 (5-15); BUN 22 mg/dL (7-18); Calcium,Total 9.3 mg/dL (8.5-10.1); Chloride 108 mmol/L (98-107); Creatinine, Serum 0.84 mg/dL (0.55-1.02); EST Glomerular Filtration Rate 68 mL/min (>60); Est Glom Filt Rate - Afr Amer 82 mL/min (>60); Globulin 3.7 g/dL (2.2-4.2); Glucose 67 mg/dL (74-106); Potassium 4.4 mmol/L (3.5-5.1); Protein, Total 7.1 g/dL (6.4-8.2); Sodium Level 138 mmol/L (136-145)
== END | disposition home or self-care (01) ==
PROVIDERS: PCP Family Medicine; Referring Provider Internal Medicine Rheumatology; Visit Provider Internal Medicine Rheumatology
DX: M05.70 Rheumatoid arthritis with rheumatoid factor of unspecified site without organ or systems involvement (principal); M50.30 Other cervical disc degeneration, unspecified cervical region; I25.10 Atherosclerotic heart disease of native coronary artery without angina pectoris; E03.9 Hypothyroidism, unspecified; Z85.3 Personal history of malignant neoplasm of breast; Z79.899 Other long term (current) drug therapy
CPT/HCPCS: 36415; 80053; 85025

== ENCOUNTER 2022-11-11 10:48 | Outpatient (CLI) | payer MEDICARE, SELFPAY ==
[2020-06-07 08:50] VITALS: BMI 19.4
[2022-11-11 11:00] VITALS: BP 123/45; PULSE 70; RESP 16; TEMP 36.4; O2SAT 98
[2022-11-11] MEDS: 0.9% NaCl IVPB Med Flush (250 mL) 15 ML IV (11:18)
[2022-11-11] MEDS: 0.9% NaCl Peripheral Flush Adult/Peds IV (12:09)
[2022-11-11 12:24] VITALS: BP 122/45; PULSE 66
== END 2022-11-11 10:49 | disposition home or self-care (01) ==
LOC: MEDOUTP 10:49
PROVIDERS: PCP Family Medicine; Referring Provider Internal Medicine Rheumatology; Visit Provider Internal Medicine Rheumatology
DX: M05.9 Rheumatoid arthritis with rheumatoid factor, unspecified (principal)
CPT/HCPCS: 96365; J7050; A4216; J0129

== ENCOUNTER 2022-11-12 07:11 | Emergency (ER) | payer MEDICARE, SELFPAY ==
[2020-06-07 08:50] VITALS: BMI 19.4
[2022-11-12 07:13] VITALS: BP 130/107; PULSE 94; RESP 14; TEMP 36.7; O2SAT 100; BMI 20.2
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
--- NOTE | 2022-11-12 07:30 | ED.VIS.FALL ---
HPI HPI - Fall History of Present Illness Chief Complaint: Head Injury Informant: patient Narrative Narrative: 87-year-old female lives at home alone states she had a basket of laundry with her after walking up the steps to the second floor was trying to do something else and let go of the railing and accidentally missed stepped, causing her to fall backwards down the entire flight of steps. She states she tumbled head over heel once or twice, she did not lose consciousness and was not aware that she hit her head until she felt a boggy area on top of this morning. She denies any headache, vomiting, vision changes, neurologic symptoms. She states after she landed and composed herself she was able to get up and walk back up the steps and felt like she was okay except for her tailbone which is sore. She is sore throughout her body but she has no other focal injuries that she can tell. She is on clopidogrel for having a history of a stent in the past. Takes no anticoagulants. She had a bowel movement this morning that was normal and nonbloody, she urinated and there is no blood there either. PFSH PFSH Medical History Arthritis Atherosclerosis of coronary artery of [place] heart without angina pectoris Colonization status Contamination Delayed wound healing Fx cervical vert NOS-closed Fx clavicle History of coronary artery stent placement (04/12/20) History of malignant neoplasm of right breast 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 Left ankle swelling Malignant neoplasm of right female breast Mitral valve insufficiency Non-pressure chronic ulcer of unspecified part of left lower leg with fat layer exposed Non-rheumatic mitral regurgitation Osteomyelitis of left lower extremity Osteopenia Other specified peripheral vascular diseases Rheumatoid arthritis Staph infection STEMI (ST elevation myocardial infarction) Venous insufficiency (chronic) (peripheral) Home Medications calcium carbonate 200 mg calcium (500 mg) chewable tablet 1,000 mg PO DAILY@0800 indigestion 10/26/18 [History Last Taken 05/16/20] abatacept 50 mg/0.4 mL subcutaneous syringe 750 mg IV QMONTH arthritis 12/13/19 [History Last Taken Unknown] acetaminophen 500 mg tablet 1,000 mg PO BID pain 04/12/20 [History Last Taken 05/16/20] aspirin 81 mg tablet,delayed release 81 mg PO DAILY@0800 heart 05/16/20 [History Last Taken 01/02/21] folic acid 1 mg tablet 1 mg PO BID 05/23/20 [History Last Taken Unknown] methotrexate sodium 2.5 mg tablet 15 mg PO BRENNER arthritis 05/23/20 [History Last Taken Unknown] leucovorin calcium 15 mg tablet 15 mg PO QWEEK 09/25/20 [History Last Taken Unknown] levothyroxine 75 mcg tablet 75 mcg PO DAILY 12/12/21 [History Last Taken Unknown] metoprolol succinate 25 mg tablet,extended release 24 hr 25 mg PO DAILY #90 tabs 04/14/22 [Rx Last Taken Unknown] clopidogrel 75 mg tablet 75 mg PO DAILY #90 tabs 06/09/22 [Rx Last Taken Unknown] mirtazapine 7.5 mg tablet 7.5 mg PO DAILY 06/24/22 [History Last Taken Unknown] spironolactone 50 mg tablet (Aldactone) 50 mg PO QAM #30 tabs 09/11/22 [Rx Last Taken Unknown] Allergy/AdvReac Type Severity Reaction Status Date / Time ticagrelor [From Brilinta] AdvReac Severe Severe Verified 11/12/22 07:12 dyspnea on exertion Family History Father Clotting disorder Heart disease Surgical History History of ankle surgery History of arthroplasty of left ankle History of left heart catheterization (LHC) (~01/02/21) History of mastectomy History of tubal ligation Presence of coronary angioplasty implant and graft (~04/12/20) Social History Smoking Status: Never smoker alcohol intake: never substance use type: does not use caffeine: Yes ROS ROS ED Constitutional Constitutional ED: Denies chills or fever(s) Eyes Eyes: Denies change in vision or diplopia ENT ENT ED: Denies ear pain, epistaxis, facial pain or rhinorrhea Cardiovascular Cardiovascular: Denies chest pain or palpitations Respiratory/Chest Respiratory/Chest: Denies cough or dyspnea Gastrointestinal Gastrointestinal: Denies abdominal pain, diarrhea, melena, nausea or vomiting Genitourinary Genitourinary ED: Denies dysuria or hematuria Musculoskeletal Musculoskeletal: Reports back pain; Denies extremity pain or neck pain Integumentary Denies abscess, Abrasions, laceration or rash Neurologic Neurologic: Denies confusion, headache(s), paresthesias or weakness EXAM Physical Exam Const Vital Signs: 11/12/22 07:13 11/12/22 07:20 Temperature 98.1 F Temperature Source Temporal Pulse Rate 94 Respiratory Rate 14 Respiratory Effort Normal Blood Pressure 130/107 H Blood Pressure Mean 114 Pulse Ox 100 Oxygen Delivery Method Room Air Positive well nourished and well developed General Appearance ED: well developed and NAD HEENT Reports TM's clear and nasal mucous membranes and turbinates normal HEENT Narrative: Boggy hematoma minimally tender with an overlying abrasion/contusion on top of the head, nonlateralizing. No crepitance or depression. No other signs of HEENT trauma. Face and Sinus: Negative for facial tenderness Tympanic Membrane ED: Yes TM's clear Eyes PERRL and EOMs intact bilaterally Visual Acuity: other Other Details: no entrapment or pain with extraocular movements Neck full ROM and supple General: Negative for tenderness Chest Wall inspection of chest normal and palpation of chest normal Chest: symmetrical chest wall rise; Negative for crepitus or tenderness Resp normal respiratory effort and clear to auscultation bilaterally Percussion: other equal BS bilat Cardio no murmurs Rate: regular rate; Negative for bradycardia or tachycardic Rhythm: regular rhythm GI normal to inspection, nondistended, normoactive bowel sounds, soft to palpation and non-tender Back/Spine normal ROM Back/Spine Narrative: Tender at the tailbone/distal sacrum, no other spinal or pelvic tenderness. Cervical Spine: Negative for cervical spine tenderness Thoracic Spine / Upper Back: Negative for thoracic spinal tenderness Lumbar Spine / Lower Back: Negative for lumbar spinal tenderness Extremity normal to inspection and full ROM Extremity Narrative: Able to range all joints of all 4 extremities and stand/walk without pain. General Extremety ED: Negative for tenderness Neuro oriented x3, CN's II-XII intact bilaterally, moves all extremities, no focal motor deficits and no sensory deficits noted Neuro Narrative: Able to stand and walk without any apparent difficulty or limitation. [place] Coma Scale: document GCS findings Spontaneous Obeys Commands Oriented 15 Sensorium / Orientation: awake and alert Motor Exam: strength 5/5 throughout Psych mental status grossly normal and thought process normal Skin no wounds Lesions: no lesions Rashes: no rashes MDM MDM MDM Narrative Medical decision making narrative: CT of the head was obtained I reviewed the images and the report which I agree with, negative for any acute bony skull fracture or intracranial bleeding. Also obtained 2 view x-ray of the coccyx/sacrum, which is negative for any acute fracture my interpretation. Patient was offered Tylenol, ice pack she declined, reassured we discussed reasons to return but I do not think she needs any other imaging right now. Additionally, this was a mechanical fall, the patient has not been ill lately or had any prodromal symptoms so I do not think she needs a medical work-up emergently right now. Radiography Diagnostic Testing: Clinical Impression(s) from Imaging Studies Sacrum and Coccyx X-Ray 11/12/22 07:28 IMPRESSION: Normal sacro-coccygeal spine. Electronically Signed: Bharat Cheung MD at 8:03 EDT , Brain CT 11/12/22 07:37 IMPRESSION: 1. No acute intracranial abnormality. 2. Chronic senescent changes. Electronically Signed: Bharat Cheung MD at 7:57 EDT , Discharge Plan Triage Chief Complaint: Head Injury ED Provider: Seth Garcia Dx/Rx/DC Orders Clinical Impression: Coccygeal contusion, Accidental fall on or from stairs or steps, Closed head injury without loss of consciousness Instructions: ED Coccyx or Sacrum Contusion, ED Head Injury (Adult) Prescriptions: No Action folic acid 1 mg tablet 1 mg PO BID spironolactone [Aldactone] 50 mg tablet 50 mg PO QAM Qty: 30 1RF calcium carbonate 500 MG tablet 1,000 mg PO DAILY@0800 abatacept 50 MG/0.4 ML syringe 750 mg IV QMONTH Rx Instructions: every 4 weeks methotrexate sodium 2.5 mg tablet 15 mg PO BRENNER Rx Instructions: on Sundays acetaminophen 500 MG tablet 1,000 mg PO BID aspirin 81 MG tablet 81 mg PO DAILY@0800 levothyroxine 75 mcg Tablet 75 mcg PO DAILY mirtazapine 7.5 mg tablet 7.5 mg PO DAILY leucovorin calcium 15 mg tablet 15 mg PO QWEEK metoprolol succinate 25 mg tablet extended release 24 hr 25 mg PO DAILY Qty: 90 3RF Hold Instructions: Per PCP Hypotension clopidogrel 75 mg tablet 75 mg PO DAILY Qty: 90 3RF Primary Care Provider: Teagan Hall Referrals: Teagan Hall MD [Primary Care Provider] - As Needed Disposition Disposition: Home, Self Care
--- NOTE | 2022-11-12 07:37 | CT_ITS ---
EXAM: CT HEAD WITHOUT INTRAVENOUS CONTRAST CLINICAL INDICATION: TRAUMA TECHNIQUE: Multiple axial images were obtained of the head without intravenous contrast. This CT exam was performed using one or more of the following dose reduction techniques: automated exposure control, adjustment of the mA and/or kV according to patient size, and/or use of iterative reconstruction technique. COMPARISON: CT Head dated 12/28/2018 FINDINGS: BRAIN AND EXTRA-AXIAL SPACES: Areas of diminished white matter density noted within both cerebral hemispheres suggestive of chronic microvascular change. Prominence of the cortical sulci and ventricles related to volume loss change. No hemorrhage or mass effect. No acute ischemia. BONES/JOINTS: No suspicious lytic or blastic abnormality. SOFT TISSUES: Scalp swelling noted along the frontoparietal region superiorly. SINUSES: No acute sinusitis. MASTOID AIR CELLS: Normal. Clear. ORBITS: Visualized globes, extraocular muscles, optic nerves and retrobulbar fat appear unremarkable. CT/Brain/Head without Contrast IMPRESSION: 1. No acute intracranial abnormality. 2. Chronic senescent changes. Electronically Signed: Bharat Cheung MD at 7:57 EDT ,
== END 2022-11-12 08:37 | disposition home or self-care (01) ==
PROVIDERS: Emergency Provider Emergency Medicine; PCP Family Medicine; Visit Provider Emergency Medicine
DX: S09.90XA Unspecified injury of head, initial encounter (principal); I25.10 Atherosclerotic heart disease of native coronary artery without angina pectoris; I25.2 Old myocardial infarction; W10.9XXA Fall (on) (from) unspecified stairs and steps, initial encounter
CPT/HCPCS: 70450; 72220; 99282

== ENCOUNTER 2022-12-09 10:52 | Outpatient (CLI) | payer MEDICARE, SELFPAY ==
[2020-06-07 08:50] VITALS: BMI 19.4
[2022-12-09 11:02] VITALS: BP 121/46; PULSE 76; RESP 16; TEMP 36.3; O2SAT 100
[2022-12-09] MEDS: 0.9% NaCl IVPB Med Flush (250 mL) 15 ML IV (11:10)
[2022-12-09] MEDS: 0.9% NaCl Peripheral Flush Adult/Peds IV (12:40)
[2022-12-09 12:43] VITALS: BP 127/56; PULSE 72; RESP 16; TEMP 36; O2SAT 100
== END 2022-12-09 10:53 | disposition home or self-care (01) ==
LOC: MEDOUTP 10:52
PROVIDERS: PCP Family Medicine; Referring Provider Internal Medicine Rheumatology; Visit Provider Internal Medicine Rheumatology
DX: M05.70 Rheumatoid arthritis with rheumatoid factor of unspecified site without organ or systems involvement (principal)
CPT/HCPCS: 96365; J7050; A4216; J0129

== ENCOUNTER → 2022-12-11 | Outpatient (CLI) | payer MEDICARE, SELFPAY ==
[2020-06-07 08:50] VITALS: BMI 19.4
--- NOTE | 2022-12-11 13:19 | RAD_ITS ---
STUDY: X-RAY CHEST REASON FOR EXAM: Female, 87 years old. dyspnea, history of effusion TECHNIQUE: PA and lateral views of the chest. COMPARISON: 08/25/2022 FINDINGS: Left port in place with tip overlying the mid SVC. There is hyperinflation of the lungs consistent with chronic obstructive lung disease (COPD). Minimal right effusion is present. Normal size heart. Normal mediastinum and jessica. Normal visualized pulmonary arteries. There is atherosclerotic tortuosity of the aortic arch and descending thoracic aorta. Normal visualized thoracic spine. Multiple right costochondral cartilage calcifications are noted. There is no demonstrated abnormality of the visualized soft tissue structures of the upper abdomen. RAD/Chest PA and Lateral IMPRESSION: COPD related findings similar to prior exam with no evidence of new focal infiltrate. Minimal right pleural effusion. Electronically Signed: Brad Greenwood DO at 17:21 EDT ,
[2022-12-11 16:02] LABS: T4 Total, Thyroxin 8.7 ug/dL (4.8-13.9); Thyroid Stim Hormone (TSH) 1.04 uIU/mL (0.358-3.74)
== END | disposition home or self-care (01) ==
LOC: LAB 13:14
PROVIDERS: PCP Family Medicine; Referring Provider Family Medicine; Visit Provider Family Medicine
DX: R06.09 Other forms of dyspnea (principal)
CPT/HCPCS: 36415; 71046; 84436; 84443

== ENCOUNTER → 2022-12-29 | Outpatient (CLI) | payer MEDICARE, SELFPAY ==
[2020-06-07 08:50] VITALS: BMI 19.4
--- NOTE | 2022-12-29 13:40 | CT_ITS ---
INDICATION: LUNG NODULE EXAMINATION: CT CHEST WITH CONTRAST - CT Chest W/ Contrast Injection TECHNIQUE: Helically acquired images were obtained of the chest following IV contrast. A radiation dose optimization technique was used for this scan. IV Contrast dosage and agent: 100 cc of Isovue-370. RADIATION DOSAGE (If Supplied By Facility): CTDIvol = ( 10.64 ) mGy, DLP = ( 267.95 ) mGycm COMPARISON: 08/19/2022. FINDINGS: LUNGS, PLEURA AND LARGE AIRWAYS: Mild right-sided pleural effusion, decreased in size in the interval. No left-sided pleural effusion. Minimal left lower lobe atelectasis. Right anterior perihilar and right anterior apical scarring with minimal consolidation, likely atelectasis, overall decreased in size in the interval. Small nodules within the right lower lobe, largest seen on image 67, series 7 measuring 4.7 mm, stable. Remainder of the lung [place] are otherwise clear. No pneumothorax. THYROID: No thyroid lesions. HEART AND PERICARDIUM: Mild to moderate cardiomegaly. Coronary artery calcifications. No pericardial effusion. There is a left-sided chest port in place. VESSELS: Atherosclerosis of aorta. No aortic dissection. No aortic aneurysm. No obvious central pulmonary embolism although this study was not performed with the pulmonary embolism protocol. MEDIASTINUM AND KARTHIK: No mediastinal or hilar adenopathy. Esophagus is unremarkable. Possible minimal hiatal hernia. UPPER ABDOMEN: No acute pathology. BONES: Severe compression fracture of T12. Mild compression fracture of L1, findings stable in the interval. Diffuse osteopenia with multilevel degenerative disease. Deformity of the upper sternum, unchanged in the interval and likely sequela of old trauma. Multiple sclerotic deformities of the right-sided ribs, unchanged. CT/Chest WITH Contrast IMPRESSION: Mild right-sided pleural effusion, decreased in size in the interval. Postoperative changes with scarring involving the right perihilar region and right lung apex with mild subpleural right apical density, likely atelectasis, overall decreased in the interval. Stable nodules in the right lower lobe measuring 4.7 mm. No new interval appearance of lung nodule or mass. Electronically Signed: Gisela Encinas at 19:00 EDT ,
[2022-12-29 14:06] LABS: CREATININE FINGERSTICK < 0.9 mg/dL (0.55-1.02); EGFR FINGERSTICK > 60.0000 mL/min (>60)
== END | disposition home or self-care (01) ==
LOC: CT 13:39
PROVIDERS: PCP Family Medicine; Referring Provider Internal Medicine Medical Oncology; Visit Provider Internal Medicine Medical Oncology
DX: R91.1 Solitary pulmonary nodule (principal)
CPT/HCPCS: 71260; Q9967; A4216

== ENCOUNTER → 2022-12-30 | Outpatient (CLI) | payer MEDICARE, SELFPAY ==
[2020-06-07 08:50] VITALS: BMI 19.4
--- NOTE | 2022-12-30 09:15 | RAD_ITS ---
CLINICAL HISTORY: Female, 87 years old. Portogram. PROCEDURE: Contrast was injected into the indwelling left sided portacatheter. FLUOROSCOPY TIME (if supplied): (1 minute and 19 seconds.) minutes/seconds. 16.16 mGy. 14 fluoroscopic images were obtained. STERILE BARRIER TECHNIQUE: The following sterile barrier precautions were used during the procedure: hand hygiene; use of 2% chlorhexidine aseptic; use of a cap, mask, sterile gown, sterile gloves, sterile full body drape, and a large sterile sheet. TECHNIQUE: Contrast was injected into the indwelling left sided portacatheter. There is extravasation of contrast just distal to the proximal portion of the Port-A-Cath overlying the left upper chest. Contrast flows into the distal portion of the christopher catheter into the inferior vena cava. # of Images: 3 RAD/Con Inj Boy Eval CVP Inc Fluro IMPRESSION: Extravasation of contrast in the proximal portion of the left christopher catheter as described. This is suggestive of a fracture at that site. Electronically Signed: Aneudy Cardenas MD at 10:34 EDT ,
== END | disposition home or self-care (01) ==
LOC: RAD 09:09
PROVIDERS: PCP Family Medicine; Referring Provider Internal Medicine Medical Oncology; Visit Provider Internal Medicine Medical Oncology
DX: Z45.2 Encounter for adjustment and management of vascular access device (principal)
CPT/HCPCS: 36598; A4216

== ENCOUNTER 2023-01-03 09:01 | Observation (INO) | payer MEDICARE, SELFPAY ==
[2020-06-07 08:50] VITALS: BMI 19.4
[2023-01-03] VITALS (8 sets, daily range): BP systolic 90–154; BP diastolic 61–108; PULSE 78–94; RESP 16–22; TEMP 36.4–36.6; O2SAT 98–100; BMI 21.6; BMI 20.6
--- NOTE | 2023-01-03 09:12 | EKG12_ITS ---
Test Reason : CP Blood Pressure : / mmHG Vent. Rate : 085 BPM Atrial Rate : 085 BPM P-R Int : 192 ms QRS Dur : 100 ms QT Int : 348 ms P-R-T Axes : 075 -69 074 degrees QTc Int : 414 ms Sinus rhythm with Premature atrial complexes Low voltage QRS Left anterior fascicular block Possible Lateral infarct , age undetermined Abnormal ECG Confirmed by CHINTAN LEES MD ([id number]), desk editor CHERELLE BUENROSTRO ([id number]) on 01/06/2023 10:47:37 AM Referred By: LEENA Confirmed By:CHINTAN LEES MD
--- NOTE | 2023-01-03 09:16 | RAD_ITS ---
STUDY: X-RAY CHEST REASON FOR EXAM: Female, 87 years old. Chest pain TECHNIQUE: Single AP portable view of the chest. COMPARISON: 12/11/2022 FINDINGS: EKG leads overlie the chest. Stable appearance of a left subclavian port Lungs are mildly hyperexpanded with chronic interstitial changes and stable pleural calcifications. Normal size heart. Normal mediastinum and jessica. Normal visualized pulmonary arteries. Normal visualized aortic arch and descending thoracic aorta. Normal visualized thoracic spine. Normal visualized ribs, clavicles, and shoulders. There is no demonstrated abnormality of the visualized soft tissue structures of the upper abdomen. RAD/Chest 1 View (Portable) IMPRESSION: No interval change Electronically Signed: Osvaldo Crane MD at 9:35 EDT ,
[2023-01-03 09:18] LABS: Absolute Lymphocyte Count 1.65 X10^3/uL (0.83-4.51); Basophil# 0.02 X10^3/uL; Basophil% 0.5 % (0-1); Eosinophil# 0.05 X10^3/uL; Eosinophils% 1.2 % (0-5); Hematocrit 39.4 % (37-47); Hemoglobin 13.2 g/dL (12.0-15.0); Lymphocyte # 1.65 X10^3/ul (0.83-4.51); Lymphocyte % 38.5 % (19-41); Mean Corp Hgb Conc 33.5 g/dL (32-36); Mean Corpuscular Hgb 31.8 pg (27.0-32.0); Mean Corpuscular Volume 94.9 fL (81-99); Mean Platelet Vol. 10.7 fl (6.2-12.0); Monocyte# 0.53 X10^3/uL; Monocyte% 12.4 % (0-10); NRBC Flagged by Analyzer 0 % (0-5); Neutrophil # 2.02 X10^3/uL (2.7-7.7); Neutrophil % 46.9 % (47-70); Platelet Count 173 K/mm3 (150-450); RBC Distribution Width CV 13.4 % (11.6-14.6); RBC Distribution Width SD 46.8 fl (35.1-43.9); Red Blood Count 4.15 M/mm3 (4.2-5.4); White Blood Count 4.3 K/mm3 (4.4-11.0)
[2023-01-03 09:35] LABS: Anion Gap 7 (5-15); BUN 20 mg/dL (7-18); BUN/Creat Ratio 21.5 RATIO (10-20); Chloride 108 mmol/L (98-107); Creatinine, Serum 0.93 mg/dL (0.55-1.02); EST Glomerular Filtration Rate 61 mL/min (>60); Est Glom Filt Rate - Afr Amer 74 mL/min (>60); Estimated Creatinine Clearance 39.07 ml/min; Glucose 135 mg/dL (74-106); Potassium 4.2 mmol/L (3.5-5.1); Sodium Level 138 mmol/L (136-145); Troponin-I HS (w/2H Reflex) 62 pg/mL (3.0-54.0)
[2023-01-03] MEDS: Acetaminophen 500 MG Tablet 1000 MG PO (11:01)
[2023-01-03 11:15] LABS: Reflex Troponin-HS? (from REC) Y
--- NOTE | 2023-01-03 11:17 | EDS_ITS ---
HPI History of Present Illness Chief Complaint: Chest Pain Narrative Narrative: 87-year-old female presenting for evaluation. She states she started to feel lightheaded and describes as vision changing. She states she was in the shower. She was able to sit down. She states she did not have any chest pain, but notes that she had a heart attack about a year ago without any chest pain. She was admitted to [facility] for this. She had a cardiac stent placed. Patient states this felt very similar. She does report that she has been short of breath for the last couple of days with ambulation. She denies any pain associated with it. When she rests her shortness of breath gets better. He does not wear oxygen [facility] Medical History Arthritis Atherosclerosis of coronary artery of [place] heart without angina pectoris Colonization status Contamination Delayed wound healing Fx cervical vert NOS-closed Fx clavicle History of coronary artery stent placement (04/12/20) History of malignant neoplasm of right breast 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 Left ankle swelling Malignant neoplasm of right female breast Mitral valve insufficiency Non-pressure chronic ulcer of unspecified part of left lower leg with fat layer exposed Non-rheumatic mitral regurgitation Osteomyelitis of left lower extremity Osteopenia Other specified peripheral vascular diseases Rheumatoid arthritis Staph infection STEMI (ST elevation myocardial infarction) Venous insufficiency (chronic) (peripheral) Home Medications calcium carbonate 200 mg calcium (500 mg) chewable tablet 1,000 mg PO DAILY@0800 indigestion 10/26/18 [History Last Taken 05/16/20] abatacept 50 mg/0.4 mL subcutaneous syringe 750 mg IV QMONTH arthritis 12/13/19 [History Last Taken Unknown] acetaminophen 500 mg tablet 1,000 mg PO BID pain 04/12/20 [History Last Taken 05/16/20] aspirin 81 mg tablet,delayed release 81 mg PO DAILY@0800 heart 05/16/20 [History Last Taken 01/02/21] folic acid 1 mg tablet 1 mg PO BID 05/23/20 [History Last Taken Unknown] methotrexate sodium 2.5 mg tablet 15 mg PO BRENNER arthritis 05/23/20 [History Last Taken Unknown] leucovorin calcium 15 mg tablet 15 mg PO QWEEK 09/25/20 [History Last Taken Unknown] levothyroxine 75 mcg tablet 75 mcg PO DAILY 12/12/21 [History Last Taken Unknown] metoprolol succinate 25 mg tablet,extended release 24 hr 25 mg PO DAILY #90 tabs 04/14/22 [Rx Last Taken Unknown] clopidogrel 75 mg tablet 75 mg PO DAILY #90 tabs 06/09/22 [Rx Last Taken Unknown] mirtazapine 7.5 mg tablet 7.5 mg PO DAILY 06/24/22 [History Last Taken Unknown] spironolactone 50 mg tablet (Aldactone) 50 mg PO QAM #30 tabs 09/11/22 [Rx Last Taken Unknown] Allergy/AdvReac Type Severity Reaction Status Date / Time ticagrelor [From Brilinta] AdvReac Severe Severe Verified 01/03/23 09:06 dyspnea on exertion Family History Father Clotting disorder Heart disease Surgical History History of ankle surgery History of arthroplasty of left ankle History of left heart catheterization (LHC) (~01/02/21) History of mastectomy History of tubal ligation Presence of coronary angioplasty implant and graft (~04/12/20) Social History Smoking Status: Never smoker alcohol intake: never substance use type: does not use caffeine: Yes ROS ROS ED Constitutional Constitutional ED: Denies chills, fever(s) or sweats Eyes Eyes: Reports change in vision; Denies blurry vision ENT ENT ED: Denies ear pain or sore throat Cardiovascular Cardiovascular: Denies chest pain, palpitations or racing heartbeat Respiratory/Chest Respiratory/Chest: Denies cough, dyspnea or sputum Gastrointestinal Gastrointestinal: Reports nausea; Denies abdominal pain, constipation, diarrhea or vomiting Genitourinary Genitourinary ED: Denies dysuria, hematuria or urinary frequency Musculoskeletal Musculoskeletal: Denies arthralgias, myalgias or neck pain Integumentary Denies abscess, Abrasions or rash Neurologic Neurologic: Reports headache(s); Denies paresthesias or weakness Psychiatric Psychiatric: Denies anxiety, depression, suicidal ideation or suicidal thoughts Endocrine Endocrinology: Denies polydipsia or polyuria EXAM Physical Exam Const Vital Signs: 01/03/23 09:02 01/03/23 09:11 01/03/23 09:11 Temperature 97.6 F L Temperature Source Oral Pulse Rate 86 Pulse Rate [Lying] Pulse Rate [Sitting (for 1 minute prior to obtaining)] Pulse Rate [Standing (for 1 minute prior to obtaining)] Respiratory Rate 22 H Respiratory Pattern Tachypnea Blood Pressure 90/80 154/75 H Blood Pressure [Lying] Blood Pressure [Sitting (for 1 minute prior to obtaining)] Blood Pressure [Standing (for 1 minute prior to obtaining)] Blood Pressure Mean 83 101 Blood Pressure Mean [Lying] Blood Pressure Mean [Sitting (for 1 minute prior to obtaining)] Blood Pressure Mean [Standing (for 1 minute prior to obtaining)] Pulse Ox 100 Oxygen Delivery Method Nasal Cannula Oxygen Flow Rate (L/min) 2 01/03/23 09:15 01/03/23 10:38 01/03/23 12:20 Temperature Temperature Source Pulse Rate 79 Pulse Rate [Lying] 80 Pulse Rate [Sitting (for 1 minute prior to obtaining)] 89 Pulse Rate [Standing (for 1 minute prior to obtaining)] 94 Respiratory Rate 16 Respiratory Pattern Blood Pressure 121/108 H Blood Pressure [Lying] 139/62 H Blood Pressure [Sitting (for 1 minute prior to obtaining)] 97/83 H Blood Pressure [Standing (for 1 minute prior to obtaining)] 140/77 H Blood Pressure Mean 112 Blood Pressure Mean [Lying] 87 Blood Pressure Mean [Sitting (for 1 minute prior to obtaining)] 87 Blood Pressure Mean [Standing (for 1 minute prior to obtaining)] 98 Pulse Ox 99 Oxygen Delivery Method Room Air Oxygen Flow Rate (L/min) Positive well nourished General Appearance ED: NAD; Negative for pallor HEENT Reports moist mucous membranes and dry mucous membranes Mouth ED: Yes dry mucous membranes Mouth: dry mucous membranes Eyes PERRL and EOMs intact bilaterally Chest Wall inspection of chest normal Resp normal respiratory effort and clear to auscultation bilaterally Auscultation: Negative for rales, rhonchi or wheezes Cardio regular rate Psych mental status grossly normal Skin no rashes or lesions noted and no wounds General Skin Exam: Negative for jaundice or pallor MDM MDM MDM Narrative Medical decision making narrative: Patient presenting with lightheadedness she is concerned that last time she had something like this she had a heart attack. Differential includes acute coronary syndrome, CHF, pneumonia, dehydration, electrode abnormalities, anemia. CBC will be obtained to assess white blood cell count, hemoglobin, platelets. BMP to assess renal function and electrolytes. High-sensitivity troponin will be obtained to assess for ischemia. Chest x-ray to rule out pneumonia. Patient requested Tylenol for headache which is mild. She has not any focal neurologic deficits or lateralizing signs or symptoms on examination. Orthostatics were obtained and she is significantly orthostatic from laying to sitting but when she stands her blood pressure is about the same as it was when she is lying. CBC showed mild leukopenia with a white blood cell count of 4.3. Hemoglobin [place] are stable. Platelets 173. Renal function appears normal. Electrolytes unremarkable. High-sensitivity troponin 62 and delta troponin 53. Initial EKG on my interpretation shows a sinus rhythm with some PACs. The rate is 85 bpm without sign of ischemic change. After initial evaluation she started to complain of a headache which is severe and she has no history of headaches. She did not have any focal neurologic deficits or lateralizing signs or symptoms. Her NIH is normal. We did obtain a CT brain and I treated her as a migraine with Reglan and Benadryl. CT brain was negative. Chest x-ray interpretation shows no acute process. Radiologist interprets this and agrees I repeated an EKG which showed a normal sinus rhythm and ventricular rate of 82 bpm without sign of ischemic change on my interpretation.I spoke with Dr. Fraser regarding the abnormal troponin and the patient eventually had some severe jaw pain. He recommended admission for serial heart enzymes and hydration given her orthostatic hypotension. This was discussed with the patient and family and they are amenable to this. Discussed with hospitalist for admission. Impression: 1. Headache 2. Orthostatic hypotension 3. Dyspnea Lab Data Attestation: I reviewed the patient's lab results. Labs: Laboratory Results - last 24 hr 01/03/23 01/03/23 09:03 11:06 WBC 4.3 L RBC 4.15 L Hgb 13.2 Hct 39.4 MCV 94.9 MCH 31.8 MCHC 33.5 RDW Std Deviation 46.8 H RDW Coeff of Sharad 13.4 Plt Count 173 MPV 10.7 Immature Gran % (Auto) 0.500 Neut % (Auto) 46.9 L Lymph % (Auto) 38.5 [place] % (Auto) 12.4 H Eos % (Auto) 1.2 Baso % (Auto) 0.5 Absolute Neuts (auto) 2.0 Absolute Lymphs (auto) 1.65 Nucleated RBC % 0 Sodium 138 Potassium 4.2 Chloride 108 H Carbon Dioxide 23.0 Anion Gap 7 BUN 20 H Creatinine 0.93 Estim Creat Clear Calc 39.07 Est GFR (MDRD) Af Amer 74 Est GFR (MDRD) Non-Af 61 BUN/Creatinine Ratio 21.5 H Glucose 135 H Calcium 9.0 Troponin I High Sens 62 H 53 Radiography Diagnostic Testing: Clinical Impression(s) from Imaging Studies Chest X-Ray 01/03/23 09:16 IMPRESSION: No interval change Electronically Signed: Osvaldo Crane MD at 9:35 EDT , Brain CT 01/03/23 12:12 IMPRESSION: Chronic involutional changes of the brain, no acute hemorrhage. Electronically Signed: Osvaldo Crane MD at 13:13 EDT , Discharge Plan Triage Chief Complaint: Chest Pain ED Provider: Henrry Cano Dx/Rx/DC Orders Prescriptions: No Action folic acid 1 mg tablet 1 mg PO BID spironolactone [Aldactone] 50 mg tablet 50 mg PO QAM Qty: 30 1RF calcium carbonate 500 MG tablet 1,000 mg PO DAILY@0800 abatacept 50 MG/0.4 ML syringe 750 mg IV QMONTH Rx Instructions: every 4 weeks methotrexate sodium 2.5 mg tablet 15 mg PO BRENNER Rx Instructions: on Sundays acetaminophen 500 MG tablet 1,000 mg PO BID aspirin 81 MG tablet 81 mg PO DAILY@0800 levothyroxine 75 mcg Tablet 75 mcg PO DAILY mirtazapine 7.5 mg tablet 7.5 mg PO DAILY leucovorin calcium 15 mg tablet 15 mg PO QWEEK metoprolol succinate 25 mg tablet extended release 24 hr 25 mg PO DAILY Qty: 90 3RF Hold Instructions: Per PCP Hypotension clopidogrel 75 mg tablet 75 mg PO DAILY Qty: 90 3RF Primary Care Provider: Teagan Hall Referrals: Teagan Hall MD [Primary Care Provider] -
--- NOTE | 2023-01-03 11:35 | EKG12_ITS ---
Test Reason : Blood Pressure : / mmHG Vent. Rate : 082 BPM Atrial Rate : 082 BPM P-R Int : 182 ms QRS Dur : 104 ms QT Int : 382 ms P-R-T Axes : 076 -71 066 degrees QTc Int : 446 ms Normal sinus rhythm Low voltage QRS Left anterior fascicular block Possible Lateral infarct , age undetermined Abnormal ECG Confirmed by CHINTAN LEES MD ([id number]), photography editor CHERELLE BUENROSTRO ([id number]) on 01/06/2023 10:46:39 AM Referred By: Confirmed By:CHINTAN LEES MD
[2023-01-03 11:36] LABS: Troponin-I HS 53 pg/mL (3.0-54.0)
[2023-01-03] MEDS: 0.9% Normal Saline 1,000 ML 999 ML IV (11:49)
--- NOTE | 2023-01-03 12:12 | CT_ITS ---
STUDY: CT BRAIN WITHOUT CONTRAST REASON FOR EXAM: Female, 87 years old. headache RADIATION DOSAGE (If Supplied By Facility): CTDIvol = ( 44.99 ) mGy, DLP = ( 829.85 ) mGycm TECHNIQUE: Transaxial CT imaging of the brain was performed without administration of intravenous contrast material. Individualized dose optimization techniques were used for this CT. COMPARISON: 11/12/2022 FINDINGS: Normal soft tissue structures. Normal calvarium. There is mild cerebral atrophy with widening of the extra-axial spaces and ventricular dilatation. There are areas of decreased attenuation within the white matter tracts of the supratentorial brain, consistent with microvascular disease changes. Normal basal ganglia and thalami. Normal brainstem. Normal cerebellum. There is no intracranial hemorrhage. There are no findings of an acute ischemic infarction. Normal visualized paranasal sinuses. CT/Brain/Head without Contrast IMPRESSION: Chronic involutional changes of the brain, no acute hemorrhage. Electronically Signed: Osvaldo Crane MD at 13:13 EDT ,
[2023-01-03] MEDS: DiphenhydrAMINE 50 MG/ML Syringe 25 MG IV (12:23)
[2023-01-03] MEDS: Metoclopramide 10 MG/2 ML Vial IV (12:23)
--- NOTE | 2023-01-03 13:35 | NURSING ---
MED SURG OBS [place] ORTHOSTATIC HYPOTENSION
--- NOTE | 2023-01-03 15:24 | NURSING ---
new room 120
--- NOTE | 2023-01-03 15:27 | PCM.HP.STD ---
HPI - General General Date of Admission: 01/03/23 HPI Narrative ROBERTO RASMUSSEN, is a 87 F who presents to the hospital with lightheadedness and dizziness. She denies any chest pain but was concerned because she did not have any chest pain the last time she needed a stent. In the ER initial troponin was 62 and then went down to 53. EKG remains nonischemic; they did orthostatic vital signs in the ER which were positive indicative of dehydration renal function remained stable. She did receive a liter of fluid in the ER. [facility] Medical History Arthritis Atherosclerosis of coronary artery of [place] heart without angina pectoris Colonization status Contamination Delayed wound healing Fx cervical vert NOS-closed Fx clavicle History of coronary artery stent placement (04/12/20) History of malignant neoplasm of right breast 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 Left ankle swelling Malignant neoplasm of right female breast Mitral valve insufficiency Non-pressure chronic ulcer of unspecified part of left lower leg with fat layer exposed Non-rheumatic mitral regurgitation Osteomyelitis of left lower extremity Osteopenia Other specified peripheral vascular diseases Rheumatoid arthritis Staph infection STEMI (ST elevation myocardial infarction) Venous insufficiency (chronic) (peripheral) Home Medications calcium carbonate 200 mg calcium (500 mg) chewable tablet 1,000 mg PO DAILY@0800 indigestion 10/26/18 [History Last Taken 05/16/20] abatacept 50 mg/0.4 mL subcutaneous syringe 750 mg IV QMONTH arthritis 12/13/19 [History Last Taken Unknown] acetaminophen 500 mg tablet 1,000 mg PO BID pain 04/12/20 [History Last Taken 05/16/20] aspirin 81 mg tablet,delayed release 81 mg PO DAILY@0800 heart 05/16/20 [History Last Taken 01/02/21] folic acid 1 mg tablet 1 mg PO BID 05/23/20 [History Last Taken Unknown] methotrexate sodium 2.5 mg tablet 15 mg PO BRENNER arthritis 05/23/20 [History Last Taken Unknown] leucovorin calcium 15 mg tablet 15 mg PO QWEEK 09/25/20 [History Last Taken Unknown] levothyroxine 75 mcg tablet 75 mcg PO DAILY 12/12/21 [History Last Taken Unknown] metoprolol succinate 25 mg tablet,extended release 24 hr 25 mg PO DAILY #90 tabs 04/14/22 [Rx Last Taken Unknown] clopidogrel 75 mg tablet 75 mg PO DAILY #90 tabs 06/09/22 [Rx Last Taken Unknown] mirtazapine 7.5 mg tablet 7.5 mg PO DAILY 06/24/22 [History Last Taken Unknown] spironolactone 50 mg tablet (Aldactone) 50 mg PO QAM #30 tabs 09/11/22 [Rx Last Taken Unknown] Allergy/AdvReac Type Severity Reaction Status Date / Time ticagrelor [From Brilinta] AdvReac Severe Severe Verified 01/03/23 09:06 dyspnea on exertion Family History Father Clotting disorder Heart disease Surgical History History of ankle surgery History of arthroplasty of left ankle History of left heart catheterization (LHC) (~01/02/21) History of mastectomy History of tubal ligation Presence of coronary angioplasty implant and graft (~04/12/20) Social History Smoking Status: Never smoker alcohol intake: never substance use type: does not use caffeine: Yes ROS Constitutional Constitutional: Denies chills, fatigue, fever(s) or malaise Eyes Eyes: Denies blurry vision ENT HEENT: Denies headache(s) or nasal discharge Cardiovascular Cardiovascular: Reports lightheadedness; Denies chest pain, dyspnea on exertion or syncope Respiratory/Chest Respiratory/Chest: Denies cough, shortness of breath at rest or shortness of breath with exertion Gastrointestinal Gastrointestinal: Denies constipation, diarrhea, nausea or vomiting Genitourinary Genitourinary: Denies dysuria Neurologic Neurologic: Denies focal weakness, numbness or tremor(s) Psychiatric Psychiatric: Denies anxiety or depression Vital Signs Vital Signs Vital Signs: 01/03/23 09:02 01/03/23 09:11 01/03/23 09:11 Temperature 97.6 F L Temperature Source Oral Pulse Rate 86 Pulse Rate [Lying] Pulse Rate [Sitting (for 1 minute prior to obtaining)] Pulse Rate [Standing (for 1 minute prior to obtaining)] Respiratory Rate 22 H Respiratory Pattern Tachypnea Blood Pressure 90/80 154/75 H Blood Pressure [Lying] Blood Pressure [Sitting (for 1 minute prior to obtaining)] Blood Pressure [Standing (for 1 minute prior to obtaining)] Blood Pressure Mean 83 101 Blood Pressure Mean [Lying] Blood Pressure Mean [Sitting (for 1 minute prior to obtaining)] Blood Pressure Mean [Standing (for 1 minute prior to obtaining)] Pulse Ox 100 Oxygen Delivery Method Nasal Cannula Oxygen Flow Rate (L/min) 2 01/03/23 09:15 01/03/23 10:38 01/03/23 12:20 Temperature Temperature Source Pulse Rate 79 Pulse Rate [Lying] 80 Pulse Rate [Sitting (for 1 minute prior to obtaining)] 89 Pulse Rate [Standing (for 1 minute prior to obtaining)] 94 Respiratory Rate 16 Respiratory Pattern Blood Pressure 121/108 H Blood Pressure [Lying] 139/62 H Blood Pressure [Sitting (for 1 minute prior to obtaining)] 97/83 H Blood Pressure [Standing (for 1 minute prior to obtaining)] 140/77 H Blood Pressure Mean 112 Blood Pressure Mean [Lying] 87 Blood Pressure Mean [Sitting (for 1 minute prior to obtaining)] 87 Blood Pressure Mean [Standing (for 1 minute prior to obtaining)] 98 Pulse Ox 99 Oxygen Delivery Method Room Air Oxygen Flow Rate (L/min) 01/03/23 14:37 Temperature 97.8 F Temperature Source Temporal Pulse Rate 81 Pulse Rate [Lying] Pulse Rate [Sitting (for 1 minute prior to obtaining)] Pulse Rate [Standing (for 1 minute prior to obtaining)] Respiratory Rate 16 Respiratory Pattern Blood Pressure 116/74 Blood Pressure [Lying] Blood Pressure [Sitting (for 1 minute prior to obtaining)] Blood Pressure [Standing (for 1 minute prior to obtaining)] Blood Pressure Mean 88 Blood Pressure Mean [Lying] Blood Pressure Mean [Sitting (for 1 minute prior to obtaining)] Blood Pressure Mean [Standing (for 1 minute prior to obtaining)] Pulse Ox 100 Oxygen Delivery Method Oxygen Flow Rate (L/min) Weight Weight: 130 lb 1.164 oz Body Mass Index (BMI) 21.6 Physical Exam Narrative General: Alert, Oriented x3, Cooperative, No apparent distress HEENT: Atraumatic, PERRLA, EOMI, Normocephalic Oral: Dry mucosa Neck: Supple, No JVD Lungs: Diminished, Normal air movement, No rhonchi, No wheeze, No rales Cardiovascular: Regular rate, Regular Rhythm, Normal S1, Normal S2, No murmurs Abdomen: Soft, Non Tender, Non-Distended, No Hepato-splenomegaly Extremities: No edema, Capillary Refill Less than 3 Seconds Skin: No rashes, No breakdown Musculoskeletal: No Tenderness to Palpation of Joints or Extremities Neurological: Cranial nerves II-XII grossly intact, Motor Exam 5/5 strength throughout, Sensory exam intact to light touch and pain Psych/Mental Status: Normal Affect, Appropriate Results Lab / Micro Data 01/03/23 09:03 01/03/23 09:03 Labs: Laboratory Results - last 24 hr 01/03/23 09:03: WBC 4.3 L, RBC 4.15 L, Hgb 13.2, Hct 39.4, MCV 94.9, MCH 31.8, MCHC 33.5, RDW Std Deviation 46.8 H, RDW Coeff of Sharad 13.4, Plt Count 173, MPV 10.7, Immature Gran % (Auto) 0.500, Neut % (Auto) 46.9 L, Lymph % (Auto) 38.5, [place] % (Auto) 12.4 H, Eos % (Auto) 1.2, Baso % (Auto) 0.5, Absolute Neuts (auto) 2.0, Absolute Lymphs (auto) 1.65, Nucleated RBC % 0, Sodium 138, Potassium 4.2, Chloride 108 H, Carbon Dioxide 23.0, Anion Gap 7, BUN 20 H, Creatinine 0.93, Estim Creat Clear Calc 39.07, Est GFR (MDRD) Af Amer 74, Est GFR (MDRD) Non-Af 61, BUN/Creatinine Ratio 21.5 H, Glucose 135 H, Calcium 9.0, Troponin I High Sens 62 H 01/03/23 11:06: Troponin I High Sens 53 Radiology Impression Chest X-Ray 01/03/23 09:16 IMPRESSION: No interval change Electronically Signed: Osvaldo Crane MD at 9:35 EDT , Brain CT 01/03/23 12:12 IMPRESSION: Chronic involutional changes of the brain, no acute hemorrhage. Electronically Signed: Osvaldo Crane MD at 13:13 EDT , Assessment & Plan Assessment/Plan (1) Orthostatic hypotension: PLAN: Plan 1. Dizziness and lightheadedness secondary to orthostatic hypotension from dehydration ? Her orthostatic vital signs were positive she was given a liter of fluid ? Continue with hydration ? We will obtain serial troponins and if these arise or her symptoms do not improve will consider pursuing echocardiography on Wednesday ? Her last echo was in 01/20/2022 with an EF of 55% and RVSP of 27 mmHg with a severely enlarged right atrium and moderately enlarged left atrium 2. HTN/HLD/CAD status post stent ? Can resume her antiplatelet medications given her stent history ? We will monitor her blood pressure and adjust as necessary ? We will hold her Aldactone secondary to her need for IV fluids ? Given that she is orthostatic we will hold her metoprolol 3. Rheumatoid arthritis ? Currently on methotrexate for on Sundays ? There is a coronary artery risk association with rheumatoid arthritis 4. Hypothyroidism ? Stable ? Continue with Synthroid DVT: Ambulation 76 minutes was spent on direct patient care, including documentation as well as chart review and collaboration with colleagues Charges/Coding Visit Charges Inpatient E&M: 68396 Init Hosp L3
[2023-01-03] MEDS: Folic Acid 1 MG Tablet PO (16:32)
[2023-01-03] MEDS: 0.9% Normal Saline 1,000 ML 100 ML IV (16:32)
[2023-01-03 16:44] LABS: Troponin-I HS 62 pg/mL (3.0-54.0)
[2023-01-04] MEDS: 0.9% Normal Saline 1,000 ML 100 ML IV (02:21)
[2023-01-04 02:22] VITALS: BP 118/57; PULSE 67; RESP 16; TEMP 36.6; O2SAT 100
[2023-01-04] MEDS: Acetaminophen 325 MG Tablet 650 MG PO (03:08)
[2023-01-04] MEDS: Levothyroxine 75 MCG Tablet PO (05:52)
[2023-01-04 06:21] LABS: Absolute Lymphocyte Count 1.46 X10^3/uL (0.83-4.51); Absolute Neutrophil Count 2.6 X10^3/uL (2.0-7.7); Basophil# 0.02 X10^3/uL; Basophil% 0.4 % (0-1); Eosinophil# 0.06 X10^3/uL; Eosinophils% 1.3 % (0-5); Hematocrit 34.1 % (37-47); Hemoglobin 11.2 g/dL (12.0-15.0); Lymphocyte # 1.46 X10^3/ul (0.83-4.51); Lymphocyte % 30.8 % (19-41); Mean Corp Hgb Conc 32.8 g/dL (32-36); Mean Corpuscular Hgb 32.3 pg (27.0-32.0); Mean Corpuscular Volume 98.3 fL (81-99); Monocyte# 0.62 X10^3/uL; Monocyte% 13.1 % (0-10); NRBC Flagged by Analyzer 0 % (0-5); Neutrophil # 2.56 X10^3/uL (2.7-7.7); Platelet Count 161 K/mm3 (150-450); RBC Distribution Width CV 13.8 % (11.6-14.6); RBC Distribution Width SD 49.4 fl (35.1-43.9); Red Blood Count 3.47 M/mm3 (4.2-5.4); White Blood Count 4.7 K/mm3 (4.4-11.0)
[2023-01-04 07:22] LABS: Anion Gap 7 (5-15); BUN 19 mg/dL (7-18); BUN/Creat Ratio 27.1 RATIO (10-20); Calcium,Total 7.9 mg/dL (8.5-10.1); Chloride 113 mmol/L (98-107); EST Glomerular Filtration Rate 84 mL/min (>60); Est Glom Filt Rate - Afr Amer 102 mL/min (>60); Estimated Creatinine Clearance 35.83 ml/min; Glucose 90 mg/dL (74-106); Potassium 4.2 mmol/L (3.5-5.1); Sodium Level 140 mmol/L (136-145)
[2023-01-04 08:30] VITALS: BP 130/54; PULSE 76; RESP 18; TEMP 36.4; O2SAT 100
[2023-01-04 09:32] VITALS: BP 142/62; BP 152/71; BP 164/75; PULSE 81; PULSE 84; PULSE 91
[2023-01-04] MEDS: Folic Acid 1 MG Tablet PO (10:17)
[2023-01-04] MEDS: Mirtazapine 15 MG Tablet 7.5 MG PO (10:17)
[2023-01-04] MEDS: Aspirin E.C. 81 MG Tablet PO (10:17)
[2023-01-04] MEDS: Clopidogrel Bisulfate 75 MG Tablet PO (10:17)
[2023-01-04] MEDS: Calcium Carbonate 500 MG Tablet 1000 MG PO (10:18)
--- NOTE | 2023-01-04 11:06 | DCINST_ITS ---
Discharge Instructions Diet Discharge Diet: Low fat / Low cholesterol Activity Discharge Activity: Return to Normal Activity Dressing / Incision Call your doctor if you observe: Fever of 101 or Higher, Shortness of breath, Dizziness, Fainting spells, Swelling in the ankles, Chest pain and Increased palpitations (irregular heartbeat) Follow Up Care Test Results: Test results from this visit will be discussed in further detail at your follow- up appointment, if applicable. Discharge Plan Admission Admit Date/Time: 01/03/23 14:29 Attending Provider: Saravanan Monzon Primary Care Provider: Teagan Hall Instructions Additional Instructions / Restrictions: Your troponin which is a heart enzyme that is leaked when there is damage fluctuated from a low positive of 62 down to 52 then back up to 62 so I do recommend maintaining your appointment with cardiology on for outpatient evaluation. The IV fluid did assist with the orthostatic hypotension so I would continue to monitor your p.o. intake especially with the weather being as hot as it is. Discharge Orders/Prescriptions Prescriptions: Continued folic acid 1 mg tablet 1 mg PO BID spironolactone [Aldactone] 50 mg tablet 50 mg PO QAM Qty: 30 1RF calcium carbonate 500 MG tablet 1,000 mg PO DAILY@0800 abatacept 50 MG/0.4 ML syringe 750 mg IV QMONTH Rx Instructions: every 4 weeks methotrexate sodium 2.5 mg tablet 15 mg PO BRENNER Rx Instructions: on Sundays acetaminophen 500 MG tablet 1,000 mg PO BID aspirin 81 MG tablet 81 mg PO DAILY@0800 levothyroxine 75 mcg Tablet 75 mcg PO DAILY mirtazapine 7.5 mg tablet 7.5 mg PO DAILY leucovorin calcium 15 mg tablet 15 mg PO QWEEK metoprolol succinate 25 mg tablet extended release 24 hr 25 mg PO DAILY Qty: 90 3RF Hold Instructions: Per PCP Hypotension clopidogrel 75 mg tablet 75 mg PO DAILY Qty: 90 3RF Referrals / Follow Up: Teagan Hall MD [Primary Care Provider] - Within 1 Week Disposition Disposition (needs filled in before D/C Order can be placed): Home, Self Care
--- NOTE | 2023-01-04 13:19 | PCM.DC.SUM ---
Providers Date of Admission: 01/03/23 Primary Care Physician: Dr. Teagan Hall MD Reason For Visit: ORTHOSTATIC HYPTOTENSION Diagnosis Discharge Diagnosis (1) Orthostatic hypotension: Status: Acute Code(s): I95.1 - Orthostatic hypotension Medications at Discharge Home Medications calcium carbonate 200 mg calcium (500 mg) chewable tablet 1,000 mg PO DAILY@0800 indigestion 10/26/18 abatacept 50 mg/0.4 mL subcutaneous syringe 750 mg IV QMONTH arthritis 12/13/19 acetaminophen 500 mg tablet 1,000 mg PO BID pain 04/12/20 aspirin 81 mg tablet,delayed release 81 mg PO DAILY@0800 heart 05/16/20 folic acid 1 mg tablet 1 mg PO BID supplement 05/23/20 methotrexate sodium 2.5 mg tablet 15 mg PO BRENNER arthritis 05/23/20 leucovorin calcium 15 mg tablet 15 mg PO QWEEK 09/25/20 levothyroxine 75 mcg tablet 75 mcg PO DAILY thyroid 12/12/21 metoprolol succinate 25 mg tablet,extended release 24 hr 25 mg PO DAILY blood pressure #90 tabs 04/14/22 clopidogrel 75 mg tablet 75 mg PO DAILY antiplatelet #90 tabs 06/09/22 mirtazapine 7.5 mg tablet 7.5 mg PO DAILY mental health 06/24/22 spironolactone 50 mg tablet (Aldactone) 50 mg PO QAM diuretic #30 tabs 09/11/22 Hospital Course Operations None Procedures None Summary of Care Provided Minutes Spent on Discharge: 34 Hospital Course: Per HPI: ROBERTO RASMUSSEN, is a 87 F who presents to the hospital with lightheadedness and dizziness. She denies any chest pain but was concerned because she did not have any chest pain the last time she needed a stent. In the ER initial troponin was 62 and then went down to 53. EKG remains nonischemic; they did orthostatic vital signs in the ER which were positive indicative of dehydration renal function remained stable. She did receive a liter of fluid in the ER. Hospital Course: 1. Dizziness and lightheadedness secondary to orthostatic hypotension from dehydration?87-year-old female presented to the hospital with lightheadedness and dizziness as well as a headache likely due to dehydration. She was concerned because the last time she had a minor heart attack needed the stent she had similar symptoms at that time. She was admitted for observation, troponins were unremarkable and EKG was nonischemic. Orthostatic vital signs on the day of admission were positive however after IV fluids repeat orthostatic vital signs on the day of discharge were normal and her symptoms have resolved other than her headache. She does have an appoint with cardiology on so I recommended she keep that appointment for possible further outpatient monitoring. I discussed with her the plan for discharge today she expressed understanding of the risk benefits going home and wants to go home. We will have her follow-up with her PCP in 3 to 5 days as well as cardiology on as previously scheduled. 2. Hypertension, hyperlipidemia, coronary artery disease status post stent, rheumatoid arthritis, hypothyroidism are all chronic medical conditions which complicate her care. Her home medications were continued where appropriate Physical Exam Narrative General: Alert, Oriented x3, Cooperative, No apparent distress HEENT: Atraumatic, PERRLA, EOMI, Normocephalic Oral: Moist mucosa Neck: Supple, No JVD Lungs: Diminished, Normal air movement, No rhonchi, No wheeze, No rales Cardiovascular: Regular rate, Regular Rhythm, Normal S1, Normal S2, No murmurs Abdomen: Soft, Non Tender, Non-Distended, No Hepato-splenomegaly Extremities: No edema, Capillary Refill Less than 3 Seconds Skin: No rashes, No breakdown Musculoskeletal: No Tenderness to Palpation of Joints or Extremities Neurological: Cranial nerves II-XII grossly intact, Motor Exam 5/5 strength throughout, Sensory exam intact to light touch and pain Psych/Mental Status: Normal Affect, Appropriate Weight / BMI Weight Weight: 123 lb 14.397 oz Body Mass Index (BMI) 20.6 ABG / Lab / Microbiology Data 01/04/23 05:25 01/04/23 05:25 Laboratory: Laboratory Results - last 24 hr 01/03/23 16:13: Troponin I High Sens 62 H 01/04/23 05:25: WBC 4.7, RBC 3.47 L, Hgb 11.2 L, Hct 34.1 L, MCV 98.3, MCH 32.3 H, MCHC 32.8, RDW Std Deviation 49.4 H, RDW Coeff of Sharad 13.8, Plt Count 161, MPV 11.0, Immature Gran % (Auto) 0.400, Neut % (Auto) 54.0, Lymph % (Auto) 30.8, [place] % (Auto) 13.1 H, Eos % (Auto) 1.3, Baso % (Auto) 0.4, Absolute Neuts (auto) 2.6, Absolute Lymphs (auto) 1.46, Nucleated RBC % 0, Sodium 140, Potassium 4.2, Chloride 113 H, Carbon Dioxide 20.0 L, Anion Gap 7, BUN 19 H, Creatinine 0.70, Estim Creat Clear Calc 35.83, Est GFR (MDRD) Af Amer 102, Est GFR (MDRD) Non-Af 84, BUN/Creatinine Ratio 27.1 H, Glucose 90, Calcium 7.9 L D/C Instructions Discharge Diet: Low fat / Low cholesterol Call your doctor if you observe: Fever of 101 or Higher, Shortness of breath, Dizziness, Fainting spells, Swelling in the ankles, Chest pain and Increased palpitations (irregular heartbeat) Meaningful Use Info Meaningful Use Diagnoses (Choose all that apply): None applicable Discharge Plan Admission Admit Date/Time: 01/03/23 14:29 Attending Provider: Saravanan Monzon Primary Care Provider: Teagan Hall Instructions Additional Instructions / Restrictions: Your troponin which is a heart enzyme that is leaked when there is damage fluctuated from a low positive of 62 down to 52 then back up to 62 so I do recommend maintaining your appointment with cardiology on for outpatient evaluation. The IV fluid did assist with the orthostatic hypotension so I would continue to monitor your p.o. intake especially with the weather being as hot as it is. Discharge Orders/Prescriptions Prescriptions: Continued folic acid 1 mg tablet 1 mg PO BID spironolactone [Aldactone] 50 mg tablet 50 mg PO QAM Qty: 30 1RF calcium carbonate 500 MG tablet 1,000 mg PO DAILY@0800 abatacept 50 MG/0.4 ML syringe 750 mg IV QMONTH Rx Instructions: every 4 weeks methotrexate sodium 2.5 mg tablet 15 mg PO BRENNER Rx Instructions: on Sundays acetaminophen 500 MG tablet 1,000 mg PO BID aspirin 81 MG tablet 81 mg PO DAILY@0800 levothyroxine 75 mcg Tablet 75 mcg PO DAILY mirtazapine 7.5 mg tablet 7.5 mg PO DAILY leucovorin calcium 15 mg tablet 15 mg PO QWEEK metoprolol succinate 25 mg tablet extended release 24 hr 25 mg PO DAILY Qty: 90 3RF Hold Instructions: Per PCP Hypotension clopidogrel 75 mg tablet 75 mg PO DAILY Qty: 90 3RF Referrals / Follow Up: Teagan Hall MD [Primary Care Provider] - Within 1 Week Disposition Disposition (needs filled in before D/C Order can be placed): Home, Self Care Charges/Coding Visit Charges Inpatient E&M: 59871 Disch Hosp >30min
[2023-01-05 16:31] LABS: BNP,B-Type NATRIURETIC PEPTIDE 445.6 pg/mL (0-100)
== END 2023-01-04 11:08 | disposition home or self-care (01) ==
LOC: ED 09:42 → MS3 15:01 → PCU 16:00
PROVIDERS: Admitting Provider Family Medicine; Emergency Provider Student in an Organized Health Care Education/Training Program; PCP Family Medicine; Visit Provider Family Medicine
DX: I95.1 Orthostatic hypotension (principal); M06.9 Rheumatoid arthritis, unspecified; Z95.5 Presence of coronary angioplasty implant and graft; Z79.82 Long term (current) use of aspirin; I10 Essential (primary) hypertension; I25.10 Atherosclerotic heart disease of native coronary artery without angina pectoris; E78.5 Hyperlipidemia, unspecified; E03.9 Hypothyroidism, unspecified; Z79.02 Long term (current) use of antithrombotics/antiplatelets; R06.02 Shortness of breath; Z79.899 Other long term (current) drug therapy; I25.2 Old myocardial infarction; Z79.890 Hormone replacement therapy
CPT/HCPCS: 36415; 70450; 71045; 80048; 83880; 84484; 85025; 93005; 99285; J7030; A4216

== ENCOUNTER 2023-01-06 13:11 | Emergency (ER) | payer MEDICARE, SELFPAY ==
[2020-06-07 08:50] VITALS: BMI 19.4
[2023-01-06 13:12] VITALS: BP 138/77; PULSE 179; RESP 22; TEMP 36.2; O2SAT 98; BMI 22.6
[2023-01-06 13:15] VITALS: PULSE 137
[2023-01-06 13:18] VITALS: BP 145/79; PULSE 138
--- NOTE | 2023-01-06 13:26 | EKG12_ITS ---
Test Reason : TACHY Blood Pressure : / mmHG Vent. Rate : 137 BPM Atrial Rate : 166 BPM P-R Int : 256 ms QRS Dur : 126 ms QT Int : 304 ms P-R-T Axes : 000 -72 113 degrees QTc Int : 459 ms Sinus tachycardia with 1st degree A-V block Left axis deviation Non-specific intra-ventricular conduction block Minimal voltage criteria for LVH, may be normal variant ( [place] product ) Cannot rule out Septal infarct , age undetermined Inferior infarct , age undetermined T wave abnormality, consider lateral ischemia Abnormal ECG Confirmed by YOANA LOPES, CHINTAN ([id number]), tape editor CHERELLE BUENROSTRO ([id number]) on 01/08/2023 1:13:30 PM Referred By: SARAH Confirmed By:CHINTAN LEES MD
--- NOTE | 2023-01-06 13:35 | RAD_ITS ---
STUDY: X-RAY CHEST REASON FOR EXAM: Female, 87 years old. Dyspnea with bibasilar rales TECHNIQUE: Single AP portable view of the chest. COMPARISON: Comparison is made with prior study dated January 03, 2023. FINDINGS: A left-sided portacatheter is seen with the tip at the junction of the superior vena cava and right atrium. EKG electrodes are seen. Surgical clips are seen in the right axilla. Hyperinflation. Blunting of the right cost phrenic angle with right basilar atelectasis. Calcified right pleural plaques. Normal size heart. Normal mediastinum and jessica. Normal visualized pulmonary arteries. There is atherosclerotic tortuosity of the aortic arch and descending thoracic aorta. Normal visualized thoracic spine. Normal visualized ribs, clavicles, and shoulders. There is no demonstrated abnormality of the visualized soft tissue structures of the upper abdomen. RAD/Chest 1 View (Portable) IMPRESSION: New blunting of the right coronary angle with increased markings at the right lung base suggests above the atelectasis. Calcified pleural plaques on the right side. Electronically Signed: Aneudy Cardenas MD at 13:51 EDT ,
[2023-01-06 13:38] LABS: Absolute Lymphocyte Count 0.95 X10^3/uL (0.83-4.51); Absolute Neutrophil Count 5.2 X10^3/uL (2.0-7.7); Basophil# 0.01 X10^3/uL; Basophil% 0.1 % (0-1); Eosinophil# 0.02 X10^3/uL; Eosinophils% 0.3 % (0-5); Hematocrit 39.2 % (37-47); Lymphocyte # 0.95 X10^3/ul (0.83-4.51); Lymphocyte % 14.1 % (19-41); Mean Corp Hgb Conc 33.2 g/dL (32-36); Mean Corpuscular Hgb 31.9 pg (27.0-32.0); Mean Corpuscular Volume 96.3 fL (81-99); Monocyte# 0.59 X10^3/uL; Monocyte% 8.7 % (0-10); NRBC Flagged by Analyzer 0 % (0-5); Neutrophil # 5.16 X10^3/uL (2.7-7.7); Neutrophil % 76.4 % (47-70); Platelet Count 179 K/mm3 (150-450); RBC Distribution Width CV 13.5 % (11.6-14.6); RBC Distribution Width SD 47.5 fl (35.1-43.9); Red Blood Count 4.07 M/mm3 (4.2-5.4); White Blood Count 6.8 K/mm3 (4.4-11.0)
--- NOTE | 2023-01-06 13:40 | EKG12_ITS ---
Test Reason : REPEAT Blood Pressure : / mmHG Vent. Rate : 103 BPM Atrial Rate : 192 BPM P-R Int : 000 ms QRS Dur : 098 ms QT Int : 310 ms P-R-T Axes : 270 -65 060 degrees QTc Int : 406 ms Atrial flutter with variable A-V block Low voltage QRS Incomplete right bundle branch block Left anterior fascicular block Abnormal ECG Confirmed by CHINTAN LEES MD ([id number]), publication editor CHERELLE BUENROSTRO ([id number]) on 01/08/2023 1:13:08 PM Referred By: Confirmed By:CHINTAN LEES MD
--- NOTE | 2023-01-06 13:46 | EX.ED.DYSGE1 ---
HPI History of Present Illness Chief Complaint: Palpitations Detail of Chief Complaint: Palpitations, lightheadedness, dyspnea and chest pressure Informant: patient and EMS Onset/Context/Timing Onset: Today Context: Sudden Onset Timing: Continuous Quality: Dyspnea, chest discomfort and palpitations Location: Chest/cardiovascular Current Severity: Mild Maximum Severity: Severe Worsened by: Activity Relieved by: Nothing Associated Symptoms Associated Symptoms: Lightheadedness Narrative Narrative: 87-year-old woman with history of atherosclerotic heart disease with placement of stent April 2020, hyperlipidemia, mild chronic obstructive pulmonary disease and status post right mastectomy for malignant neoplasm who presents with dyspnea, palpitations, lightheadedness, chest discomfort described as a pressure type sensation with dyspnea. This occurred this morning. Patient was seen on the third and admitted for palpitations and dehydration. Patient denies history of paroxysmal supraventricular tachycardia, atrial fibrillation or atrial flutter. Patient denies fever, chills night sweats. Patient denies headache, visual, ocular auditory symptoms. Patient is still having chest discomfort. She appears tachypneic but denies shortness of breath. Patient denies abdominal pain, nausea, vomit or diarrhea. She denies hematemesis, melena medic easier. She denies urologic symptoms. She denies neurologic symptoms. Prior similar symptoms: No Recent Illness/Hospitalization: Yes [facility] Medical History Arthritis Atherosclerosis of coronary artery of [place] heart without angina pectoris Colonization status Contamination Delayed wound healing Fx cervical vert NOS-closed Fx clavicle History of coronary artery stent placement (04/12/20) History of malignant neoplasm of right breast 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 Left ankle swelling Malignant neoplasm of right female breast Mitral valve insufficiency Non-pressure chronic ulcer of unspecified part of left lower leg with fat layer exposed Non-rheumatic mitral regurgitation Osteomyelitis of left lower extremity Osteopenia Other specified peripheral vascular diseases Rheumatoid arthritis Staph infection STEMI (ST elevation myocardial infarction) Venous insufficiency (chronic) (peripheral) Home Medications calcium carbonate 200 mg calcium (500 mg) chewable tablet 1,000 mg PO DAILY@0800 indigestion 10/26/18 [History Last Taken 05/16/20] abatacept 50 mg/0.4 mL subcutaneous syringe 750 mg IV QMONTH arthritis 12/13/19 [History Last Taken Unknown] acetaminophen 500 mg tablet 1,000 mg PO BID pain 04/12/20 [History Last Taken 05/16/20] aspirin 81 mg tablet,delayed release 81 mg PO DAILY@0800 heart 05/16/20 [History Last Taken 01/02/21] folic acid 1 mg tablet 1 mg PO BID supplement 05/23/20 [History Last Taken Unknown] methotrexate sodium 2.5 mg tablet 15 mg PO BRENNER arthritis 05/23/20 [History Last Taken Unknown] leucovorin calcium 15 mg tablet 15 mg PO QWEEK 09/25/20 [History Last Taken Unknown] levothyroxine 75 mcg tablet 75 mcg PO DAILY thyroid 12/12/21 [History Last Taken Unknown] metoprolol succinate 25 mg tablet,extended release 24 hr 25 mg PO DAILY blood pressure #90 tabs 04/14/22 [Rx Last Taken Unknown] clopidogrel 75 mg tablet 75 mg PO DAILY antiplatelet #90 tabs 06/09/22 [Rx Last Taken Unknown] mirtazapine 7.5 mg tablet 7.5 mg PO DAILY mental health 06/24/22 [History Last Taken Unknown] spironolactone 50 mg tablet (Aldactone) 50 mg PO QAM diuretic #30 tabs 09/11/22 [Rx Last Taken Unknown] apixaban 2.5 mg tablet (Eliquis) 2.5 mg PO BID #60 tabs 01/06/23 [Rx Last Taken Unknown] Allergy/AdvReac Type Severity Reaction Status Date / Time ticagrelor [From Brilinta] AdvReac Severe Severe Verified 01/05/23 14:10 dyspnea on exertion Family History Father Clotting disorder Heart disease Surgical History History of ankle surgery History of arthroplasty of left ankle History of left heart catheterization (LHC) (~01/02/21) History of mastectomy History of tubal ligation Presence of coronary angioplasty implant and graft (~04/12/20) Social History Smoking Status: Never smoker alcohol intake: never substance use type: does not use caffeine: Yes ROS ROS ED Constitutional Constitutional ED: Denies chills, fever(s), subjective, sweats or weight loss Eyes Eyes: Denies blurry vision, change in vision or diplopia ENT ENT ED: Denies ear pain, rhinorrhea or sore throat Cardiovascular Cardiovascular: Reports chest pain, palpitations and racing heartbeat; Denies orthopnea or paroxysmal nocturnal dyspnea Respiratory/Chest Respiratory/Chest: Reports dyspnea and dyspnea on exertion; Denies cough, orthopnea or paroxysmal nocturnal dyspnea Gastrointestinal Gastrointestinal: Denies abdominal pain, melena, nausea or vomiting Genitourinary Genitourinary ED: Denies dysuria, hematuria or urinary frequency Musculoskeletal Musculoskeletal: Denies arthralgias, back pain, myalgias or neck pain Integumentary Denies rash Neurologic Neurologic: Denies headache(s) or paresthesias Endocrine Endocrinology: Denies cold intolerance or heat intolerance Hematologic/Lymphatic Hematologic/Lymphatic: Reports systems reviewed and no addt'l complaints, except as documented Allergic/Immunologic Allergic/Immunologic ED: Denies mouth swelling, tongue swelling or urticaria EXAM Physical Exam Const Vital Signs: 01/06/23 13:12 01/06/23 13:15 01/06/23 13:16 Temperature 97.1 F L Temperature Source Temporal Pulse Rate 179 H 137 H Respiratory Rate 22 H Respiratory Effort Short of Breath Blood Pressure 138/77 H Blood Pressure Mean 97 Pulse Ox 98 Oxygen Delivery Method Room Air 01/06/23 13:18 01/06/23 14:15 Temperature Temperature Source Pulse Rate 138 H 92 Respiratory Rate Respiratory Effort Blood Pressure 145/79 H 115/82 H Blood Pressure Mean 101 93 Pulse Ox Oxygen Delivery Method Positive well nourished and well developed Constitutional Narrative: Vital signs noted. Prehospital EKG revealed wide sinus tachycardia rate of 172 180. Computer interpreted as indeterminate etiology. Third EKG may have represented V. tach. Patient did receive amiodarone by squad. She received 100 mg bolus. This dropped her pressure to 70 systolic. Upon arrival she is tachycardic and is wide-complex question of irregularity. General Appearance ED: well developed and NAD; Negative for pallor HEENT Reports moist mucous membranes HEENT Narrative: Head is normocephalic and atraumatic. Ears are normal. Nares are patent. Posterior pharynx is normal. Mucosa is moist. Eyes PERRL and EOMs intact bilaterally General Eye ED: Negative for pale conjunctiva or scleral icterus Neck no lymphadenopathy, supple and no JVD Chest Wall palpation of chest normal Chest Narrative: Mastectomy scar noted on the right Resp Effort and Inspection: Negative for retractions or pain with movement Auscultation: rales bilateral base Cardio no murmurs Rate: tachycardic Rhythm: abnormal rhythm irregularly irregular GI normal to inspection, nondistended, normoactive bowel sounds, non-tender, non-distended and no masses; Negative for hepatosplenomegaly Back/Spine no CVA tenderness Thoracic Spine / Upper Back: Negative for thoracic spinal tenderness Lumbar Spine / Lower Back: Negative for lumbar spinal tenderness Extremity normal to inspection General Extremety ED: Negative for edema or tenderness General Extremity: Negative for edema Neuro oriented x3, CN's II-XII intact bilaterally and no sensory deficits noted Sensorium / Orientation: alert Motor Exam: strength 5/5 throughout Psych mental status grossly normal Skin no rashes or lesions noted, no wounds and skin turgor normal General Skin Exam: Negative for jaundice or pallor MDM MDM MDM Narrative Medical decision making narrative: With history of coronary disease and chest discomfort with shortness of breath will obtain EKG and cardiac markers to rule out cardiac ischemia. Suspect this is rate dependent phenomenon. Patient was consented for cardioversion. She was explained risk benefits cardioversion versus administering beta-kemal and observing. After discussion and explained risk benefits plan was to proceed with cardioversion. Patient was set up for cardioversion. Prior to administration of etomidate patient converted to a sinus rhythm.. Most recent rhythm reveals atrial fibrillation. Rate is controlled. History & Record Review Discussion w/independent historian: Patient and Family Lab Data Attestation: I reviewed the patient's lab results. Lab results narrative: CBC is unremarkable. First troponin is normal, 50. BMP is remarkable glucose of 190 with normal CO2 and anion gap. Second troponin is pending. 2-hour troponin is 48 with a delta of -2. Labs: Laboratory Results - last 24 hr 01/06/23 01/06/23 13:18 15:24 WBC 6.8 RBC 4.07 L Hgb 13.0 Hct 39.2 MCV 96.3 MCH 31.9 MCHC 33.2 RDW Std Deviation 47.5 H RDW Coeff of Sharad 13.5 Plt Count 179 MPV 11.0 Immature Gran % (Auto) 0.400 Neut % (Auto) 76.4 H Lymph % (Auto) 14.1 L [place] % (Auto) 8.7 Eos % (Auto) 0.3 Baso % (Auto) 0.1 Absolute Neuts (auto) 5.2 Absolute Lymphs (auto) 0.95 Nucleated RBC % 0 Sodium 133 L Potassium 4.2 Chloride 103 Carbon Dioxide 22.0 Anion Gap 8 BUN 17 Creatinine 0.93 Estim Creat Clear Calc 39.07 Est GFR (MDRD) Af Amer 73 Est GFR (MDRD) Non-Af 61 BUN/Creatinine Ratio 18.3 Glucose 190 H Lactic Acid 2.0 Calcium 8.7 Troponin I High Sens 50 48 Radiography Chest X-Ray - ED: 1 View and Read by ED Physician (Independent reviewed interpreted by me at 1345 as no obvious acute findings. Film slightly rotated. It is a portable view. The right heart border is slightly obscured. There is no evidence of effusion. Borderline cardiomegaly. Perihilar region is unremarkable. Osseous structures are unremarka) Diagnostic Testing: Clinical Impression(s) from Imaging Studies Chest X-Ray 01/06/23 13:35 IMPRESSION: New blunting of the right coronary angle with increased markings at the right lung base suggests above the atelectasis. Calcified pleural plaques on the right side. Electronically Signed: Aneudy Cardenas MD at 13:51 EDT , Rhythm Strip Rhythm Strip: Wide-complex tachycardia rate of 172 EKG Initial EKG: Attestation: I personally reviewed and interpreted this EKG as follows: Interpretation: Atrial Fibrillation (Rate of 137. QRS duration 126 ms. QT deficiency 104 ms. [place] to the left. Patient is nonseptic conduction delay. Patient has a prior history of lung bundle branch block. There is decreased anterior force.) Prior: Changed Follow-up EKG: Attestation: I personally reviewed and interpreted this EKG as follows: Interpretation: Atrial Fibrillation (Rate of 103. Cures duration 98 ms. QT duration 312 ms. [place] to the left. There is evidence of low voltage. The wide-complex QRS is not noted on the repeat. This was prior to any treatment.) Treatment and Re-Evaluation :: Nurse informed me that patient became dyspneic complained of shortness of breath and lightheaded walking back in the restroom. When she was placed on the monitor her heart rate was 160. Patient's heart rate is presently 100. Rate is controlled. At 1622 review of monitor reveals a sinus rhythm rate of 100. Spoke with cardiology Dr. Baca. If patient becomes severely tachycardic and dyspneic with minimal walking he recommended admitting patient and doing work-up for her A-fib and dyspnea. Patient's CHADS2 vascular score is 4. Patient is at high risk for embolic phenomenon. Recommendation is anticoagulation. We will start patient on Eliquis. Discharge Plan Triage Chief Complaint: Palpitations ED Provider: Anant Cooper Dx/Rx/DC Orders Clinical Impression: Regular wide QRS complex tachycardia, Atherosclerosis of coronary artery of [place] heart without angina pectoris, COLE (dyspnea on exertion), AF (paroxysmal atrial fibrillation), Chest tightness Instructions: ED About Arrhythmias Prescriptions: New Eliquis 2.5 mg tablet 2.5 mg PO BID Qty: 60 0RF No Action folic acid 1 mg tablet 1 mg PO BID spironolactone [Aldactone] 50 mg tablet 50 mg PO QAM Qty: 30 1RF calcium carbonate 500 MG tablet 1,000 mg PO DAILY@0800 abatacept 50 MG/0.4 ML syringe 750 mg IV QMONTH Rx Instructions: every 4 weeks methotrexate sodium 2.5 mg tablet 15 mg PO BRENNER Rx Instructions: on Sundays acetaminophen 500 MG tablet 1,000 mg PO BID aspirin 81 MG tablet 81 mg PO DAILY@0800 levothyroxine 75 mcg Tablet 75 mcg PO DAILY mirtazapine 7.5 mg tablet 7.5 mg PO DAILY leucovorin calcium 15 mg tablet 15 mg PO QWEEK metoprolol succinate 25 mg tablet extended release 24 hr 25 mg PO DAILY Qty: 90 3RF Hold Instructions: Per PCP Hypotension clopidogrel 75 mg tablet 75 mg PO DAILY Qty: 90 3RF Primary Care Provider: Teagna Hall Referrals: Teagan Hall MD [Primary Care Provider] - Elias Arevalo MD [Med Staff - Active Staff] - Keep Leonel appointment Disposition Disposition: Home, Self Care
[2023-01-06 14:13] LABS: Anion Gap 8 (5-15); BUN 17 mg/dL (7-18); BUN/Creat Ratio 18.3 RATIO (10-20); Calcium,Total 8.7 mg/dL (8.5-10.1); Chloride 103 mmol/L (98-107); Creatinine, Serum 0.93 mg/dL (0.55-1.02); EST Glomerular Filtration Rate 61 mL/min (>60); Est Glom Filt Rate - Afr Amer 73 mL/min (>60); Estimated Creatinine Clearance 39.07 ml/min; Glucose 190 mg/dL (74-106); Potassium 4.2 mmol/L (3.5-5.1); Sodium Level 133 mmol/L (136-145); Troponin-I HS (w/2H Reflex) 50 pg/mL (3.0-54.0)
[2023-01-06 14:15] VITALS: BP 115/82; PULSE 92
[2023-01-06 15:34] LABS: Reflex Troponin-HS? (from REC) Y
[2023-01-06 16:07] LABS: Troponin-I HS 48 pg/mL (3.0-54.0)
[2023-01-06 16:52] VITALS: BP 119/70; PULSE 100; RESP 16; O2SAT 96
[2023-01-06] MEDS: APIXABAN 2.5 MG TABLET (WCH) PO (17:00)
--- NOTE | 2023-01-06 17:09 | ED.RN ---
UNABLE TO SCAN ELLIQUIS IN [facility] IT STATES [facility] HAS NOT FILED IN [place] WHEN ATTEMPTING TO SCAN IT. PT. WAS GIVEN 2.5MG OF ELLIQUIS ORDERED.
[2023-01-06 17:34] LABS: Reflex Lactate? Y
== END 2023-01-06 17:05 | disposition home or self-care (01) ==
PROVIDERS: Emergency Provider Emergency Medicine; PCP Family Medicine; Visit Provider Emergency Medicine
DX: R00.0 Tachycardia, unspecified (principal); I48.0 Paroxysmal atrial fibrillation; I25.10 Atherosclerotic heart disease of native coronary artery without angina pectoris; R06.09 Other forms of dyspnea; R07.89 Other chest pain; I25.2 Old myocardial infarction; Z95.5 Presence of coronary angioplasty implant and graft
CPT/HCPCS: 71045; 80048; 83605; 84484; 85025; 93005; 99285; A4216

== ENCOUNTER → 2023-01-15 | Outpatient (CLI) | payer MEDICARE, SELFPAY ==
[2020-06-07 08:50] VITALS: BMI 19.4
== END | disposition home or self-care (01) ==
LOC: PSN 08:59
PROVIDERS: PCP Family Medicine; Referring Provider Physician Assistant Medical; Visit Provider Physician Assistant Medical
DX: I48.0 Paroxysmal atrial fibrillation (principal)
CPT/HCPCS: 93225; 93226

== ENCOUNTER 2023-01-17 22:24 | Emergency (ER) | payer MEDICARE, SELFPAY ==
[2020-06-07 08:50] VITALS: BMI 19.4
[2023-01-17 22:25] VITALS: BP 131/73; PULSE 108; RESP 22; TEMP 36.6; O2SAT 98; BMI 21.9
[2023-01-17 22:31] VITALS: BP 129/78; PULSE 103; RESP 20; O2SAT 96
[2023-01-17 22:34] VITALS: O2SAT 96
[2023-01-17 23:23] LABS: Absolute Lymphocyte Count 0.99 X10^3/uL (0.83-4.51); Absolute Neutrophil Count 4.2 X10^3/uL (2.0-7.7); Basophil# 0.02 X10^3/uL; Basophil% 0.3 % (0-1); Eosinophil# 0.04 X10^3/uL; Eosinophils% 0.7 % (0-5); Hematocrit 37.8 % (37-47); Hemoglobin 12.3 g/dL (12.0-15.0); Lymphocyte # 0.99 X10^3/ul (0.83-4.51); Lymphocyte % 17.3 % (19-41); Mean Corp Hgb Conc 32.5 g/dL (32-36); Mean Corpuscular Hgb 31.9 pg (27.0-32.0); Mean Corpuscular Volume 97.9 fL (81-99); Mean Platelet Vol. 10.8 fl (6.2-12.0); Monocyte# 0.42 X10^3/uL; Monocyte% 7.3 % (0-10); NRBC Flagged by Analyzer 0 % (0-5); Neutrophil # 4.23 X10^3/uL (2.7-7.7); Neutrophil % 74.1 % (47-70); Platelet Count 169 K/mm3 (150-450); RBC Distribution Width CV 13.6 % (11.6-14.6); RBC Distribution Width SD 48.5 fl (35.1-43.9); Red Blood Count 3.86 M/mm3 (4.2-5.4); White Blood Count 5.7 K/mm3 (4.4-11.0)
[2023-01-17] MEDS: 0.9% Normal Saline (1000mL) 1,000 ML 999 ML IV (23:30)
--- NOTE | 2023-01-17 23:37 | EKG12_ITS ---
Test Reason : CP Blood Pressure : / mmHG Vent. Rate : 105 BPM Atrial Rate : 105 BPM P-R Int : 222 ms QRS Dur : 120 ms QT Int : 308 ms P-R-T Axes : 000 -64 068 degrees QTc Int : 407 ms Atrial Flutter with variable block Left axis deviation Right bundle branch block Possible Lateral infarct , age undetermined Abnormal ECG When compared with ECG of 06-JAN-2023 13:47, Sinus rhythm has replaced Atrial flutter Right bundle branch block has replaced Incomplete right bundle branch block Borderline criteria for Lateral infarct are now Present ST elevation now present in Anterior leads Confirmed by YOANA LOPES, CHINTAN ([id number]), web content editor HOPE CASANOVA ([id number]) on 01/20/2023 10:16:49 AM Referred By: GAMA Confirmed By:CHINTAN LEES MD
--- NOTE | 2023-01-17 23:41 | ED.RN ---
2330: BP 90s/60s, Dr. Dougherty notified and metoprolol held at this time.
[2023-01-17 23:46] LABS: Anion Gap 6 (5-15); BUN 25 mg/dL (7-18); BUN/Creat Ratio 26.3 RATIO (10-20); Calcium,Total 9.5 mg/dL (8.5-10.1); Chloride 108 mmol/L (98-107); Creatinine, Serum 0.95 mg/dL (0.55-1.02); EST Glomerular Filtration Rate 59 mL/min (>60); Est Glom Filt Rate - Afr Amer 72 mL/min (>60); Estimated Creatinine Clearance 38.25 ml/min; Glucose 126 mg/dL (74-106); Magnesium 2.2 mg/dL (1.6-2.6); Potassium 3.6 mmol/L (3.5-5.1); Sodium Level 139 mmol/L (136-145); Thyroid Stim Hormone (TSH) 4.27 uIU/mL (0.358-3.74)
[2023-01-17 23:47] VITALS: BP 124/81; PULSE 102; RESP 18; O2SAT 99
[2023-01-17] MEDS: Metoprolol Tartrate 5 MG/5 ML Vial IV (23:48)
[2023-01-18 00:06] VITALS: BP 84/71; PULSE 98; RESP 20; O2SAT 99
--- NOTE | 2023-01-18 00:31 | EDS_ITS ---
HPI History of Present Illness Chief Complaint: Shortness of Breath Informant: patient, family and EMS Narrative Narrative: Patient is an 87-year-old female with past medical history of hyperlipidemia CAD with stent placement and recent diagnosis of paroxysmal atrial fibrillation currently on Eliquis. Patient states she was diagnosed with atrial fibrillation roughly 2 weeks ago. She states she is on Eliquis and metoprolol for it. She states that despite being on her medication she has noted that she will have sudden bouts where her heart rate will pound and skip. She states that this evening her heart rate increased and began pounding which made her feel unwell. She states that this lasted for 20 to 30 minutes and was not improving and therefore EMS was called to bring her in for evaluation. Patient denies any history of illicit drug use or excessive stimulant use and states otherwise that there is been no bouts of vomiting or diarrhea to suggest dehydration or electrolyte abnormality [facility] Medical History Arthritis Atherosclerosis of coronary artery of [place] heart without angina pectoris Colonization status Contamination Delayed wound healing Fx cervical vert NOS-closed Fx clavicle History of coronary artery stent placement (04/12/20) History of malignant neoplasm of right breast 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 Left ankle swelling Malignant neoplasm of right female breast Mitral valve insufficiency Non-pressure chronic ulcer of unspecified part of left lower leg with fat layer exposed Non-rheumatic mitral regurgitation Osteomyelitis of left lower extremity Osteopenia Other specified peripheral vascular diseases Rheumatoid arthritis Staph infection STEMI (ST elevation myocardial infarction) Venous insufficiency (chronic) (peripheral) Home Medications calcium carbonate 200 mg calcium (500 mg) chewable tablet 1,000 mg PO DAILY@0800 indigestion 10/26/18 [History Last Taken 05/16/20] abatacept 50 mg/0.4 mL subcutaneous syringe 750 mg IV QMONTH arthritis 12/13/19 [History Last Taken Unknown] acetaminophen 500 mg tablet 1,000 mg PO BID pain 04/12/20 [History Last Taken 05/16/20] aspirin 81 mg tablet,delayed release 81 mg PO DAILY@0800 heart 05/16/20 [History Last Taken 01/02/21] folic acid 1 mg tablet 1 mg PO BID supplement 05/23/20 [History Last Taken Unknown] methotrexate sodium 2.5 mg tablet 15 mg PO BRENNER arthritis 05/23/20 [History Last Taken Unknown] leucovorin calcium 15 mg tablet 15 mg PO QWEEK 09/25/20 [History Last Taken Unknown] levothyroxine 75 mcg tablet 75 mcg PO DAILY thyroid 12/12/21 [History Last Taken Unknown] mirtazapine 7.5 mg tablet 7.5 mg PO DAILY mental health 06/24/22 [History Last Taken Unknown] apixaban 2.5 mg tablet (Eliquis) 2.5 mg PO BID #180 tabs 01/07/23 [Rx Last Taken Unknown] metoprolol succinate 25 mg tablet,extended release 24 hr 25 mg PO DAILY #90 tabs 01/07/23 [Rx Last Taken Unknown] Allergy/AdvReac Type Severity Reaction Status Date / Time ticagrelor [From Brilinta] AdvReac Severe Severe Verified 01/07/23 11:32 dyspnea on exertion Family History Father Clotting disorder Heart disease Surgical History History of ankle surgery History of arthroplasty of left ankle History of left heart catheterization (LHC) (~01/02/21) History of mastectomy History of tubal ligation Presence of coronary angioplasty implant and graft (~04/12/20) Social History Smoking Status: Never smoker alcohol intake: never substance use type: does not use caffeine: Yes ROS ROS ED Constitutional Constitutional ED: Denies chills or fever(s) ENT ENT ED: Denies sore throat Cardiovascular Cardiovascular: Reports palpitations and racing heartbeat; Denies chest pain Respiratory/Chest Respiratory/Chest: Reports dyspnea; Denies cough Gastrointestinal Gastrointestinal: Denies abdominal pain, diarrhea, nausea or vomiting Genitourinary Genitourinary ED: Denies dysuria Musculoskeletal Musculoskeletal: Denies myalgias Integumentary Denies rash Neurologic Neurologic: Denies headache(s) Psychiatric Psychiatric: Reports anxiety Hematologic/Lymphatic Hematologic/Lymphatic: Reports easy bleeding and easy bruising EXAM Physical Exam Const Vital Signs: 01/17/23 22:25 01/17/23 22:31 01/17/23 22:34 Temperature 97.9 F Temperature Source Oral Pulse Rate 108 H 103 H Respiratory Rate 22 H 20 H Respiratory Effort Short of Breath Respiratory Depth Normal Respiratory Pattern Normal Blood Pressure 131/73 H 129/78 H Blood Pressure Mean 92 95 Pulse Ox 98 96 Oxygen Delivery Method Room Air Room Air Room Air 01/17/23 23:47 01/18/23 00:06 01/18/23 00:33 Temperature Temperature Source Pulse Rate 102 H 98 98 Respiratory Rate 18 20 H Respiratory Effort Respiratory Depth Respiratory Pattern Blood Pressure 124/81 H 84/71 L 117/90 H Blood Pressure Mean 95 75 99 Pulse Ox 99 99 Oxygen Delivery Method Room Air Room Air Positive well nourished and well developed General Appearance ED: well developed HEENT HEENT Narrative: Normocephalic atraumatic Eyes PERRL and EOMs intact bilaterally General Eye ED: Negative for pale conjunctiva Neck supple and no JVD Chest Wall palpation of chest normal Resp normal respiratory effort and clear to auscultation bilaterally Cardio regular rate and regular rhythm Rate: other Other Details: Heart is regular rate and rhythm with carotid and radial pulses being equal and symmetric There is a frequent PVC/ectopic beat noted GI normal to inspection, nondistended, normoactive bowel sounds, non-tender, non- distended and no masses GI Narrative: No pulsatile mass or fluid wave Auscultation: normoactive bowel sounds Palpation: soft Extremity normal to inspection Neuro oriented x3 and CN's II-XII intact bilaterally Sensorium / Orientation: alert Motor Exam: strength 5/5 throughout Psych mental status grossly normal Skin no rashes or lesions noted MDM MDM MDM Narrative Medical decision making narrative: Patient presented to the ER with resolution of her symptoms. She reported 20 to 30-minute episode of palpitations. Her history is most consistent with paroxysmal/breakthrough A-fib with RVR. She is anticoagulated on Eliquis and states has been taking the medication as directed and therefore my concern for a DVT or PE is low and I do not feel the need for a CTA. There is concern that the patient's breakthrough A-fib could be related to anemia or electrolyte abnormality or thyroid disorder. Therefore basic blood work was obtained which revealed no acute findings. The patient was kept on the monitor and remained in normal sinus rhythm with her frequent PVCs but there is no return to A-fib with RVR. Therefore at this time as the A-fib is known there is no severe electrolyte derangement that needs corrected and the patient's had resolution of her symptoms and furthermore is anticoagulated there is no need to keep the patient in the hospital and she can talk to her berry planter about a action plan for breakthrough A-fib and or further medication to help control any recurrent bouts History & Record Review Discussion w/independent historian: Patient and Family Lab Data Attestation: I reviewed the patient's lab results. Labs: Laboratory Results - last 24 hr 01/17/23 23:15 WBC 5.7 RBC 3.86 L Hgb 12.3 Hct 37.8 MCV 97.9 MCH 31.9 MCHC 32.5 RDW Std Deviation 48.5 H RDW Coeff of Sharad 13.6 Plt Count 169 MPV 10.8 Immature Gran % (Auto) 0.300 Neut % (Auto) 74.1 H Lymph % (Auto) 17.3 L [place] % (Auto) 7.3 Eos % (Auto) 0.7 Baso % (Auto) 0.3 Absolute Neuts (auto) 4.2 Absolute Lymphs (auto) 0.99 Nucleated RBC % 0 Sodium 139 Potassium 3.6 Chloride 108 H Carbon Dioxide 25.0 Anion Gap 6 BUN 25 H Creatinine 0.95 Estim Creat Clear Calc 38.25 Est GFR (MDRD) Af Amer 72 Est GFR (MDRD) Non-Af 59 L BUN/Creatinine Ratio 26.3 H Glucose 126 H Calcium 9.5 Magnesium 2.2 TSH 4.27 H Discharge Plan Triage Chief Complaint: Shortness of Breath ED Provider: Cj Dougherty Dx/Rx/DC Orders Clinical Impression: Paroxysmal atrial fibrillation, CAD (coronary artery disease), Current use of l suresh term anticoagulation Instructions: AFib Prescriptions: No Action folic acid 1 mg tablet 1 mg PO BID Eliquis 2.5 mg tablet 2.5 mg PO BID Qty: 180 3RF metoprolol succinate 25 mg tablet extended release 24 hr 25 mg PO DAILY Qty: 90 3RF calcium carbonate 500 MG tablet 1,000 mg PO DAILY@0800 abatacept 50 MG/0.4 ML syringe 750 mg IV QMONTH Rx Instructions: every 4 weeks methotrexate sodium 2.5 mg tablet 15 mg PO BRENNER Rx Instructions: on Sundays acetaminophen 500 MG tablet 1,000 mg PO BID aspirin 81 MG tablet 81 mg PO DAILY@0800 levothyroxine 75 mcg Tablet 75 mcg PO DAILY mirtazapine 7.5 mg tablet 7.5 mg PO DAILY leucovorin calcium 15 mg tablet 15 mg PO QWEEK Primary Care Provider: Teagan Hall Referrals: Teagan Hall MD [Primary Care Provider] - Elias Arevalo MD [Med Staff - Active Staff] - Activity Restrictions/Additional Instructions: Please continue all of your medications as directed by your doctor. Also contact your berry planter office to discuss an action plan for recurrent bouts of atrial fibrillation and or additional medication to control the recurrent episode. At this time I recommend that if you have breakthrough palpitations/A- fib with RVR that you take an extra metoprolol dose and wait 30 minutes to 1 hour to see if this resolves her symptoms. If not then you should return to the ER for repeat evaluation. Also do not take the extra dose multiple times a day. I would recommend only 1 dose at this time per day if needed. If you have any further concerns or worsening of symptoms please return for repeat evaluation Disposition Disposition: Home, Self Care Discharge Date/Time: 01/18/23 00:47
[2023-01-18 00:33] VITALS: BP 117/90; PULSE 98
== END 2023-01-18 00:47 | disposition home or self-care (01) ==
PROVIDERS: Emergency Provider Emergency Medicine; PCP Family Medicine; Visit Provider Emergency Medicine
DX: I48.0 Paroxysmal atrial fibrillation (principal); I25.10 Atherosclerotic heart disease of native coronary artery without angina pectoris; I25.2 Old myocardial infarction; Z95.5 Presence of coronary angioplasty implant and graft; Z79.82 Long term (current) use of aspirin; Z79.899 Other long term (current) drug therapy; Z79.01 Long term (current) use of anticoagulants
CPT/HCPCS: 80048; 83735; 84443; 85025; 93005; 96374; 99285; J7030; A4216

== ENCOUNTER 2023-01-20 10:49 | Outpatient (CLI) | payer MEDICARE, SELFPAY ==
[2020-06-07 08:50] VITALS: BMI 19.4
[2023-01-20 11:08] VITALS: BP 137/72; PULSE 108; RESP 16; TEMP 36.4; O2SAT 98; BMI 21.1
[2023-01-20] MEDS: 0.9% NaCl Peripheral Flush Adult/Peds IV (11:13)
[2023-01-20] MEDS: 0.9% NaCl IVPB Med Flush (250 mL) 15 ML IV (11:27)
[2023-01-20] MEDS: ABATACEPT IV (11:27)
[2023-01-20] MEDS: NORMAL SALINE 0.9% IV (11:27)
[2023-01-20 12:23] VITALS: BP 130/68; PULSE 103; RESP 16; TEMP 36.4
== END 2023-01-20 10:50 | disposition home or self-care (01) ==
LOC: MEDOUTP 10:49
PROVIDERS: PCP Family Medicine; Referring Provider Internal Medicine Rheumatology; Visit Provider Internal Medicine Rheumatology
DX: M05.70 Rheumatoid arthritis with rheumatoid factor of unspecified site without organ or systems involvement (principal)
CPT/HCPCS: 96365; J7050; A4216; J0129

== ENCOUNTER → 2023-01-25 | Outpatient (CLI) | payer MEDICARE, SELFPAY ==
[2020-06-07 08:50] VITALS: BMI 19.4
[2023-01-25 15:22] LABS: Absolute Lymphocyte Count 1.01 X10^3/uL (0.83-4.51); Absolute Neutrophil Count 3.6 X10^3/uL (2.0-7.7); Basophil# 0.03 X10^3/uL; Basophil% 0.6 % (0-1); Eosinophil# 0.04 X10^3/uL; Eosinophils% 0.8 % (0-5); Hematocrit 42.1 % (37-47); Hemoglobin 13.9 g/dL (12.0-15.0); Lymphocyte # 1.01 X10^3/ul (0.83-4.51); Lymphocyte % 19.4 % (19-41); Mean Corpuscular Hgb 32.1 pg (27.0-32.0); Mean Corpuscular Volume 97.2 fL (81-99); Mean Platelet Vol. 11.4 fl (6.2-12.0); Monocyte# 0.57 X10^3/uL; Monocyte% 10.9 % (0-10); NRBC Flagged by Analyzer 0 % (0-5); Neutrophil # 3.55 X10^3/uL (2.7-7.7); Neutrophil % 68.1 % (47-70); Platelet Count 193 K/mm3 (150-450); RBC Distribution Width SD 49.8 fl (35.1-43.9); Red Blood Count 4.33 M/mm3 (4.2-5.4); White Blood Count 5.2 K/mm3 (4.4-11.0)
[2023-01-25 15:52] LABS: ALB/GLOB Ratio 1.1 RATIO (0.9-2.4); AST(SGOT) 23 U/L (15-37); Alanine Aminotransfer ALT/SGPT 57 U/L (13-56); Albumin, Serum 3.5 g/dL (3.2-5.0); Alkaline Phosphatase 76 U/L (45-117); Anion Gap 8 (5-15); BUN 22 mg/dL (7-18); BUN/Creat Ratio 19.8 RATIO (10-20); Calcium,Total 9.3 mg/dL (8.5-10.1); Chloride 100 mmol/L (98-107); Creatinine, Serum 1.11 mg/dL (0.55-1.02); EST Glomerular Filtration Rate 50 mL/min (>60); Est Glom Filt Rate - Afr Amer 60 mL/min (>60); Globulin 3.3 g/dL (2.2-4.2); Glucose 114 mg/dL (74-106); Magnesium 2.4 mg/dL (1.6-2.6); Potassium 4.3 mmol/L (3.5-5.1); Protein, Total 6.8 g/dL (6.4-8.2); Sodium Level 133 mmol/L (136-145); Thyroid Stim Hormone (TSH) 3.28 uIU/mL (0.358-3.74)
[2023-01-25 18:52] LABS: BNP,B-Type NATRIURETIC PEPTIDE 331.5 pg/mL (0-100)
== END | disposition home or self-care (01) ==
LOC: MTLAB 12:43
PROVIDERS: Nurse Practitioner Family; PCP Family Medicine; Referring Provider Internal Medicine Rheumatology; Visit Provider Internal Medicine Rheumatology
DX: M05.70 Rheumatoid arthritis with rheumatoid factor of unspecified site without organ or systems involvement (principal); I48.0 Paroxysmal atrial fibrillation; I34.0 Nonrheumatic mitral (valve) insufficiency; E78.5 Hyperlipidemia, unspecified; R00.2 Palpitations; R06.00 Dyspnea, unspecified; Z79.899 Other long term (current) drug therapy
CPT/HCPCS: 36415; 80053; 83735; 83880; 84443; 85025

== ENCOUNTER 2023-01-27 11:01 | Emergency (ER) | payer MEDICARE, SELFPAY ==
[2020-06-07 08:50] VITALS: BMI 19.4
[2023-01-27 11:01] VITALS: BP 133/77; PULSE 87; RESP 20; TEMP 36.1; O2SAT 100
--- NOTE | 2023-01-27 11:31 | EKG12_ITS ---
Test Reason : CP Blood Pressure : / mmHG Vent. Rate : 093 BPM Atrial Rate : 093 BPM P-R Int : 218 ms QRS Dur : 096 ms QT Int : 314 ms P-R-T Axes : 000 -68 012 degrees QTc Int : 390 ms ATRIAL FLUTTER WITH VARIABLE BLOCK Aberrant conduction Left axis deviation Low voltage QRS Possible Lateral infarct (cited on or before 17-JAN-2023) Abnormal ECG Confirmed by YOANA LOPES, CHINTAN ([id number]), make up editor CHERELLE BUENROSTRO ([id number]) on 01/27/2023 2:10:38 PM Referred By: ANDRE/BRANDY Confirmed By:CHINTAN LEES MD
[2023-01-27 11:45] LABS: Absolute Lymphocyte Count 1.13 X10^3/uL (0.83-4.51); Absolute Neutrophil Count 4.7 X10^3/uL (2.0-7.7); Basophil# 0.03 X10^3/uL; Basophil% 0.5 % (0-1); Eosinophil# 0.02 X10^3/uL; Eosinophils% 0.3 % (0-5); Hematocrit 43.4 % (37-47); Hemoglobin 14.4 g/dL (12.0-15.0); Lymphocyte # 1.13 X10^3/ul (0.83-4.51); Lymphocyte % 17.4 % (19-41); Mean Corp Hgb Conc 33.2 g/dL (32-36); Mean Corpuscular Hgb 32.4 pg (27.0-32.0); Mean Corpuscular Volume 97.5 fL (81-99); Mean Platelet Vol. 10.5 fl (6.2-12.0); Monocyte# 0.57 X10^3/uL; Monocyte% 8.8 % (0-10); NRBC Flagged by Analyzer 0 % (0-5); Neutrophil # 4.74 X10^3/uL (2.7-7.7); Neutrophil % 72.7 % (47-70); Platelet Count 196 K/mm3 (150-450); RBC Distribution Width CV 14.1 % (11.6-14.6); RBC Distribution Width SD 50.1 fl (35.1-43.9); Red Blood Count 4.45 M/mm3 (4.2-5.4); White Blood Count 6.5 K/mm3 (4.4-11.0)
--- NOTE | 2023-01-27 11:50 | RAD_ITS ---
STUDY: X-RAY CHEST REASON FOR EXAM: Female, 87 years old. sob TECHNIQUE: Single AP portable view of the chest. COMPARISON: January 06, 2023 FINDINGS: 1. Interval increase in right pleural effusion which is small to moderate 2. Interval development of mild patchy consolidation of the right lower lobe 3. Interval development of a trace pleural effusion of the left lower lobe. 4. Normal heart size 5. Chronic hyperinflation of both lungs 6. Stable left chest port and catheter 7. Stable mediastinum and osseous structures. There is no demonstrated abnormality of the visualized soft tissue structures of the upper abdomen. RAD/Chest 1 View (Portable) IMPRESSION: * Increasing bilateral pulmonary edema/CHF and bilateral pleural effusions * Newly developed right lower lobe patchy consolidation Electronically Signed: Erik Estrada MD at 12:45 EDT ,
[2023-01-27 12:01] LABS: Anion Gap 6 (5-15); BUN 24 mg/dL (7-18); BUN/Creat Ratio 24.2 RATIO (10-20); Calcium,Total 9.1 mg/dL (8.5-10.1); Chloride 101 mmol/L (98-107); Creatinine, Serum 0.99 mg/dL (0.55-1.02); EST Glomerular Filtration Rate 56 mL/min (>60); Est Glom Filt Rate - Afr Amer 68 mL/min (>60); Glucose 141 mg/dL (74-106); Potassium 3.9 mmol/L (3.5-5.1); Sodium Level 131 mmol/L (136-145); Troponin-I HS 31 pg/mL (3.0-54.0)
--- NOTE | 2023-01-27 12:05 | CM.ED ---
Social Work SW performed chart review; LW and HCPOA documents on file as of 2016. Patient's HCPOA is patient's , Sharad, and alternates are patient's daughter, Maya and son, Walt. Mitra Robertson MSW, GELY
[2023-01-27 12:12] LABS: BNP,B-Type NATRIURETIC PEPTIDE 627.5 pg/mL (0-100)
--- NOTE | 2023-01-27 12:12 | EDS_ITS ---
HPI History of Present Illness Chief Complaint: Chest Pain Informant: patient Onset/Context/Timing Onset: Today Narrative Narrative: Patient presents with shortness of breath that started last night. She states that she feels that she has to take in a deeper breath than normal and was not able to sleep. She did have some slight left lateral chest pain last night and today complains of a heaviness over the central portion of her chest. She has a history of a pleural effusion that required drainage in August. Patient was recently diagnosed with atrial fibrillation and is currently on Eliquis, last dose taken this morning. [facility] Medical History Arthritis Atherosclerosis of coronary artery of [place] heart without angina pectoris Colonization status Contamination Delayed wound healing Fx cervical vert NOS-closed Fx clavicle History of coronary artery stent placement (04/12/20) History of malignant neoplasm of right breast 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 Left ankle swelling Malignant neoplasm of right female breast Mitral valve insufficiency Non-pressure chronic ulcer of unspecified part of left lower leg with fat layer exposed Non-rheumatic mitral regurgitation Osteomyelitis of left lower extremity Osteopenia Other specified peripheral vascular diseases Rheumatoid arthritis Staph infection STEMI (ST elevation myocardial infarction) Venous insufficiency (chronic) (peripheral) Home Medications calcium carbonate 200 mg calcium (500 mg) chewable tablet 1,000 mg PO DAILY@0800 indigestion 10/26/18 [History Last Taken 05/16/20] abatacept 50 mg/0.4 mL subcutaneous syringe 750 mg IV QMONTH arthritis 12/13/19 [History Last Taken Unknown] acetaminophen 500 mg tablet 1,000 mg PO BID pain 04/12/20 [History Last Taken 05/16/20] aspirin 81 mg tablet,delayed release 81 mg PO DAILY@0800 heart 05/16/20 [History Last Taken 01/02/21] folic acid 1 mg tablet 1 mg PO BID supplement 05/23/20 [History Last Taken Unknown] methotrexate sodium 2.5 mg tablet 15 mg PO BRENNER arthritis 05/23/20 [History Last Taken Unknown] leucovorin calcium 15 mg tablet 15 mg PO QWEEK 09/25/20 [History Last Taken Unknown] levothyroxine 75 mcg tablet 75 mcg PO DAILY thyroid 12/12/21 [History Last Taken Unknown] mirtazapine 7.5 mg tablet 7.5 mg PO DAILY mental health 06/24/22 [History Last Taken Unknown] apixaban 2.5 mg tablet (Eliquis) 2.5 mg PO BID #180 tabs 01/07/23 [Rx Last Taken Unknown] furosemide 40 mg tablet (Lasix) 40 mg PO DAILY #30 tabs 01/21/23 [Rx Last Taken Unknown] metoprolol tartrate 50 mg tablet 50 mg PO BID #60 tabs 01/21/23 [Rx Last Taken Unknown] amiodarone 200 mg tablet 200 mg PO DAILY #60 tabs 01/22/23 [Rx Last Taken Unknown] Allergy/AdvReac Type Severity Reaction Status Date / Time ticagrelor [From Brilinta] AdvReac Severe Severe Verified 01/25/23 14:07 dyspnea on exertion Family History Father Clotting disorder Heart disease Surgical History History of ankle surgery History of arthroplasty of left ankle History of left heart catheterization (LHC) (~01/02/21) History of mastectomy History of tubal ligation Presence of coronary angioplasty implant and graft (~04/12/20) Social History Smoking Status: Never smoker alcohol intake: never substance use type: does not use caffeine: Yes ROS ROS ED Constitutional Constitutional ED: Denies chills or fever(s) Eyes Eyes: Denies change in vision or discharge from eye(s) ENT ENT ED: Denies discharge from eye(s), rhinorrhea or sore throat Cardiovascular Cardiovascular: Reports chest pain; Denies palpitations Respiratory/Chest Respiratory/Chest: Reports dyspnea; Denies cough Gastrointestinal Gastrointestinal: Denies abdominal pain, diarrhea, nausea or vomiting Genitourinary Genitourinary ED: Denies dysuria Musculoskeletal Musculoskeletal: Denies back pain or extremity pain Integumentary Denies Abrasions or rash Neurologic Neurologic: Denies headache(s) or weakness Psychiatric Psychiatric: Denies anxiety or depression Allergic/Immunologic Allergic/Immunologic ED: Denies lip swelling or urticaria EXAM Physical Exam Const Vital Signs: 01/27/23 11:01 01/27/23 11:38 01/27/23 11:03 Temperature 96.9 F L Temperature Source Temporal Pulse Rate 87 Respiratory Rate 20 H Respiratory Effort Normal Non-Labored Normal Non-Labored Respiratory Depth Normal Respiratory Pattern Normal Blood Pressure 133/77 H Blood Pressure Mean 95 Pulse Ox 100 Oxygen Delivery Method Room Air Room Air Positive well nourished and well developed General Appearance ED: well developed HEENT Reports normocephalic and head/scalp atraumatic Eyes PERRL and EOMs intact bilaterally Neck supple Chest Wall inspection of chest normal and palpation of chest normal Resp normal respiratory effort Resp Narrative: Lungs sounds slightly diminished bilateral bases Cardio regular rate and regular rhythm GI normal to inspection, nondistended, normoactive bowel sounds Palpation: soft Extremity normal to inspection Neuro oriented x3 and no sensory deficits noted Sensorium / Orientation: alert Motor Exam: strength 5/5 throughout Psych mental status grossly normal Skin no rashes or lesions noted MDM MDM MDM Narrative Medical decision making narrative: Patient placed on hall monitor. EKG obtained to evaluate for cardiac arrhythmia/ischemia. Chest x-ray obtained to evaluate for acute lung pathology, cardiac size, or mediastinal abnormality. Labwork obtained to evaluate for leukocytosis, anemia, and electrolyte derangement. History & Record Review Discussion w/independent historian: Patient and Family Additional record(s) reviewed:: Prior ED visit and Prior labs Lab Data Attestation: I reviewed the patient's lab results. Labs: Laboratory Results - last 24 hr 01/27/23 11:30 WBC 6.5 RBC 4.45 Hgb 14.4 Hct 43.4 MCV 97.5 MCH 32.4 H MCHC 33.2 RDW Std Deviation 50.1 H RDW Coeff of Sharad 14.1 Plt Count 196 MPV 10.5 Immature Gran % (Auto) 0.300 Neut % (Auto) 72.7 H Lymph % (Auto) 17.4 L [place] % (Auto) 8.8 Eos % (Auto) 0.3 Baso % (Auto) 0.5 Absolute Neuts (auto) 4.7 Absolute Lymphs (auto) 1.13 Nucleated RBC % 0 Sodium 131 L Potassium 3.9 Chloride 101 Carbon Dioxide 24.0 Anion Gap 6 BUN 24 H Creatinine 0.99 Est GFR (MDRD) Af Amer 68 Est GFR (MDRD) Non-Af 56 L BUN/Creatinine Ratio 24.2 H Glucose 141 H Calcium 9.1 Troponin I High Sens 31 B-Natriuretic Peptide 627.5 H Radiography Chest X-Ray - ED: 1 View, Read by ED Physician, Chronic Changes and Right Effusion Diagnostic Testing: Clinical Impression(s) from Imaging Studies Chest X-Ray 01/27/23 11:50 IMPRESSION: * Increasing bilateral pulmonary edema/CHF and bilateral pleural effusions * Newly developed right lower lobe patchy consolidation Electronically Signed: Erik Estrada MD at 12:45 EDT Reading Location ID and State: [address] [place] [address] , Service support , EKG Initial EKG: Attestation: I personally reviewed and interpreted this EKG as follows: Interpretation: Atrial Flutter (Atrial flutter at 93 bpm. No acute ischemia.) Treatment and Re-Evaluation :: CBC was normal white count at 6.5 with a hemoglobin of 14.4. BMP significant f or a sodium of 131. Renal function is unremarkable. Troponin is normal at 31. BNP is 627. Portable chest x-ray per my interpretation was chronic changes with a small right pleural effusion. EKG was initially thought to be sinus rhythm, however cardiology feels is atrial flutter. No acute ischemia. I did receive a phone call from Dr. Arevalo about this patient. I did send him the EKG. Given that she is currently in atrial flutter he would like to do a DEBRA and cardiovert her. She was taken to the floor for this procedure and then returned back to the emergency room. At this time patient is in sinus rhythm. Dr. Arevalo did asked that we give the patient 40 mg of IV Lasix on return to the ER and then she will resume her 40 mg of Lasix daily at home. Cardiology will follow-up closely with her. Discharge Plan Triage Chief Complaint: Chest Pain Other Complaint: Shortness of Breath ED Provider: Miriam Reyes Dx/Rx/DC Orders Clinical Impression: Atrial flutter, Pleural effusion Instructions: ED Atrial Flutter, ED Pleural Effusion Prescriptions: No Action folic acid 1 mg tablet 1 mg PO BID Eliquis 2.5 mg tablet 2.5 mg PO BID Qty: 180 3RF calcium carbonate 500 MG tablet 1,000 mg PO DAILY@0800 abatacept 50 MG/0.4 ML syringe 750 mg IV QMONTH Rx Instructions: every 4 weeks methotrexate sodium 2.5 mg tablet 15 mg PO BRENNER Rx Instructions: on Sundays acetaminophen 500 MG tablet 1,000 mg PO BID aspirin 81 MG tablet 81 mg PO DAILY@0800 levothyroxine 75 mcg Tablet 75 mcg PO DAILY mirtazapine 7.5 mg tablet 7.5 mg PO DAILY leucovorin calcium 15 mg tablet 15 mg PO QWEEK furosemide [Lasix] 40 mg tablet 40 mg PO DAILY Qty: 30 11RF metoprolol tartrate 50 mg tablet 50 mg PO BID Qty: 60 11RF amiodarone 200 mg tablet 200 mg PO DAILY Qty: 60 3RF Rx Instructions: 200mg PO BID x2 weeks followed by 200mg PO daily Primary Care Provider: Teagan Hall Referrals: Teagan Hall MD [Primary Care Provider] - Elias Arevalo MD [Med Staff - Active Staff] - 1-2 Weeks Disposition Disposition: Home, Self Care
--- NOTE | 2023-01-27 12:19 | E[place]OTEE_ITS ---
Reason For Study: A. fib/flutter Medication DEBRA probe 6VT-D (SN [id number]) passed without difficulty. No complications were noted. Cetacaine Topical [place] given X3 orally. Versed 2 mg given slow IVP. Fentanyl 50 mcg given slow IVP. Left Ventricle Normal LV size. The estimated ejection fraction is 45 %. There is mild global hypokinesis of the left ventricle. Right Ventricle Normal RV size. Normal systolic function. Atria Normal atrial septum. Bubble contrast study negative for right to left interatrial shunt. The left atrium is moderately enlarged. No thrombus is detected in the left atrial appendage. The right atrium is moderately enlarged. Mitral Valve [place] diffuse mitral valve thickening. Mild (1+) eccentric mitral valve insufficiency. Tricuspid Valve Normal tricuspid valve. Mild (1+) tricuspid valve insufficiency. Aortic Valve Trisinus/trileaflet aortic valve. Mild focal aortic valve calcification. Pulmonic Valve Normal pulmonic valve. Vessels Normal aortic root. Normal arch. The pulmonary artery is normal size. Normal pulmonary veins. Pericardium Trivial pericardial effusion. Doppler Measurements & Calculations TR max bibiana: 233.9 cm/sec ECHO/Echo Transesophageal (DEBRA) Interpretation Summary Normal LV size. The estimated ejection fraction is 45 %. There is mild global hypokinesis of the left ventricle. No thrombus is detected in the left atrial appendage. The left atrium is moderately enlarged. Ordering Physician: Miriam Reyes Referring Physician: Teagan Hall M.D. Performed By: Margarita Sparks RDCS
--- NOTE | 2023-01-27 13:17 | EKG12_ITS ---
Test Reason : POST DEBRA Blood Pressure : / mmHG Vent. Rate : 065 BPM Atrial Rate : 065 BPM P-R Int : 216 ms QRS Dur : 118 ms QT Int : 430 ms P-R-T Axes : 058 -70 037 degrees QTc Int : 447 ms Sinus rhythm with 1st degree A-V block with occasional Premature ventricular complexes Left anterior fascicular block Anterolateral infarct , age undetermined Abnormal ECG Confirmed by YOANA LOPES, CHINTAN ([id number]), subeditor CHERELLE BUENROSTRO ([id number]) on 02/08/2023 1:48:09 PM Referred By: CHINTAN LEES Confirmed By:CHINTAN LEES MD
--- NOTE | 2023-01-27 13:45 | PRO.PCM_ITS ---
Procedure Report Date of Procedure: 01/27/23 CONSCIOUS SEDATION REPORT BRIEF HISTORY OF PRESENT ILLNESS: The patient is an 87-year-old female who presented to [facility] emergency department secondary to acute onset of shortness of breath and chest heaviness. Patient was noted to be in A-fib with RVR and is on Eliquis therapy. Given hemodynamic instability, the decision was made to do a DEBRA and cardioversion. Patient had DEBRA using 2 mg of Versed and 50 mcg of fentanyl. EF was noted to be 45% on the study. The decision was made for patient to have a cardioversion, so was asked to add anesthesia. 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 Patient has been lost to follow-up. PHYSICAL EXAMINATION: VITAL SIGNS: Reviewed and were acceptable. GENERAL: The patient is a female, in no apparent distress, speaking in full sentences. HEENT: Normocephalic, atraumatic. Mucous membranes are moist and pink. Good mouth opening noted. Trachea is midline. Good neck mobility. MP I CHEST: S1, S2 irregularly irregular. No murmurs, rubs or gallops were noted. LUNGS: Clear to auscultation bilaterally without appreciable wheezes, rales or rhonchi. ABDOMEN: Soft, nontender, nondistended. Positive bowel sounds. EXTREMITIES: There is no clubbing, cyanosis or edema. Significant ulnar deviation noted ASA Class: II DESCRIPTION OF PROCEDURE: After confirmation of informed consent, the patient's anesthesia plan was reviewed in detail. Propofol was chosen. Risks and benefits were reviewed and the patient agreed to proceed. At 1:06 PM, the patient was given 40 mg of propofol. The patient required a total of 40 mg of propofol throughout the procedure to achieve appropriate sedation. The patient achieved an appropriate level of sedation and received 1 attempt at synchronized cardioversion, at [address] Arevalo at the bedside. Patient did have a brief pause for 5 to 10 seconds with sinus bradycardia and a heart rate of 30. This recovered spontaneously. This was successful in achieving normal sinus rhythm. The patient was monitored until 1:20 PM, at which time the patient reached their baseline mental status and function. The patient tolerated the procedure well. COMPLICATIONS: None ESTIMATED BLOOD LOSS: None RECOMMENDATIONS: Okay to recover in usual fashion. Procedures Pulmonary 9xxxx: [id number] Con Sedation
--- NOTE | 2023-01-27 13:50 | ED.RN ---
pt's blood pressure 96/67. Dr Reyes notified about blood pressure- this rn asks if it is ok to give the [address] reyes, ok to give lasix if pt is asymptomatic from blood pressure.
[2023-01-27] MEDS: Furosemide 40 MG/4 ML Vial IV (13:53)
[2023-01-27 14:00] VITALS: BP 92/64
== END 2023-01-27 14:08 | disposition home or self-care (01) ==
PROVIDERS: Emergency Provider Emergency Medicine; PCP Family Medicine; Visit Provider Emergency Medicine
DX: I48.92 Unspecified atrial flutter (principal); I48.91 Unspecified atrial fibrillation; J90 Pleural effusion, not elsewhere classified; I25.10 Atherosclerotic heart disease of native coronary artery without angina pectoris; R06.02 Shortness of breath; I25.2 Old myocardial infarction; Z79.01 Long term (current) use of anticoagulants; Z79.899 Other long term (current) drug therapy; Z79.82 Long term (current) use of aspirin; Z95.5 Presence of coronary angioplasty implant and graft
CPT/HCPCS: 71045; 80048; 83880; 84484; 85025; 93005; 93312; 93320; 93325; 96374; 99285; J7040; A4216; J1940

== ENCOUNTER → 2023-02-04 | Outpatient (CLI) | payer MEDICARE, SELFPAY ==
[2020-06-07 08:50] VITALS: BMI 19.4
--- NOTE | 2023-02-04 14:40 | RAD_ITS ---
STUDY: X-RAY CHEST REASON FOR EXAM: Female, 87 years old. Previous right effusion TECHNIQUE: PA and lateral views of the chest. COMPARISON: Comparison is made with prior study dated January 27, 2023. FINDINGS: A left-sided Port-A-Cath is seen with the tip at the junction of the superior vena cava and atrium. Surgical clips are seen in the right axilla. Progressive right pleural effusion with right basilar atelectasis and/or infiltrate. Blunting of the left cost phrenic angle with mild left basilar atelectasis. There is no demonstrated pleural abnormality. Normal size heart. Normal mediastinum and jessica. Normal visualized pulmonary arteries. Normal visualized aortic arch and descending thoracic aorta. Normal visualized thoracic spine. Multiple right-sided healed rib fractures. There is no demonstrated abnormality of the visualized soft tissue structures of the upper abdomen. RAD/Chest PA and Lateral IMPRESSION: Progressive right pleural effusion with right basilar atelectasis. Blunting of the left costophrenic angle with increased markings at the left lung base. Multiple healed right-sided rib fractures. Electronically Signed: Aneudy Cardenas MD at 15:06 EDT ,
== END | disposition home or self-care (01) ==
LOC: MTRAD 14:39
PROVIDERS: PCP Family Medicine; Referring Provider Nurse Practitioner Family; Visit Provider Nurse Practitioner Family
DX: I25.10 Atherosclerotic heart disease of native coronary artery without angina pectoris (principal); J90 Pleural effusion, not elsewhere classified; E78.5 Hyperlipidemia, unspecified; R06.00 Dyspnea, unspecified
CPT/HCPCS: 71046

== ENCOUNTER 2023-02-17 10:45 | Outpatient (CLI) | payer MEDICARE, SELFPAY ==
[2020-06-07 08:50] VITALS: BMI 19.4
[2023-02-17 11:30] VITALS: BP 114/53; PULSE 50; RESP 16; TEMP 36.2; O2SAT 97; BMI 21.2
[2023-02-17] MEDS: 0.9% NaCl VAD Flush IV (11:34)
[2023-02-17] MEDS: ABATACEPT IV (11:34)
[2023-02-17] MEDS: NORMAL SALINE 0.9% IV (11:34)
[2023-02-17] MEDS: 0.9% NaCl IVPB Med Flush (250 mL) 15 ML IV (11:35)
[2023-02-17 12:27] VITALS: BP 124/72; PULSE 53; RESP 16; TEMP 36.3; O2SAT 97
[2023-02-19 21:07] LABS: QNTFERON TB Mitogen Value > 10.00 IU/mL (.); QNTFERON TB Nil Value 0.03 IU/mL (.); QNTFERON TB1+ Ag Value 0.05 IU/mL (.); QNTFERON TB2+ Ag Value 0.05 IU/mL (.); QNTIFERON TB Positive Criteria Negative (Negative)
== END 2023-02-17 10:46 | disposition home or self-care (01) ==
LOC: MEDOUTP 10:45
PROVIDERS: PCP Family Medicine; Referring Provider Internal Medicine Rheumatology; Visit Provider Internal Medicine Rheumatology
DX: M05.70 Rheumatoid arthritis with rheumatoid factor of unspecified site without organ or systems involvement (principal)
CPT/HCPCS: 96365; 36415; 86480; J7050; A4216; J0129

== ENCOUNTER → 2023-02-22 | Outpatient (CLI) | payer MEDICARE, SELFPAY ==
[2020-06-07 08:50] VITALS: BMI 19.4
--- NOTE | 2023-02-22 07:29 | US_ITS ---
PROCEDURE: ULTRASOUND GUIDED THORACENTESIS. DATE: February 22, 2023. INDICATION: Female, 87 years old. Right pleural effusion. PHYSICIAN: Aneudy Cardenas M.D. PROCEDURE: The risks, benefits, and alternatives to the procedure were explained to the patient. The specific risks of bleeding, infection, and pneumothorax requiring chest tube insertion were discussed and accepted. Written informed consent was obtained. Ultrasonographic evaluation of the right lower pleural space was carried out. An adequate pocket was identified. The patient was placed in the sitting, upright position. The overlying skin was prepped and draped in sterile fashion. 1% lidocaine was administered subcutaneously for local anesthesia. Under ultrasound guidance, a 5 Armenian thoracentesis needle/catheter system was advanced into the right posterior lower pleural fluid collection. Approximately 350 mL of nichole-colored fluid was drained. The catheter was removed, and a sterile dressing was applied. The patient tolerated the procedure well. A chest x-ray was ordered. US/Thoracentesis W US IMPRESSION: Ultrasound-guided right thoracentesis. Electronically Signed: Aneudy Cardenas MD at 8:29 EDT ,
[2023-02-22 07:42] VITALS: BP 101/43; BP 117/56; BP 138/73; PULSE 74; PULSE 75; PULSE 77; RESP 18; TEMP 36.1; O2SAT 98
[2023-02-22] MEDS: Lidocaine 2% (20 ml mdv) 20 ML Vial INFILT (07:52)
--- NOTE | 2023-02-22 07:55 | RAD_ITS ---
STUDY: X-RAY CHEST REASON FOR EXAM: Female, 87 years old. Post thora TECHNIQUE: AP inspiration and expiration views. COMPARISON: Comparison is made with prior study March 01, 2003. FINDINGS: The patient status post right thoracentesis. No evidence of pneumothorax. A left-sided portacatheter is seen. Hyperinflation. Calcified right pleural plaques. RAD/Chest Insp/Exp 2 View IMPRESSION: Status post right thoracentesis. No evidence of pneumothorax. Electronically Signed: Aneudy Cardenas MD at 8:17 EDT ,
--- NOTE | 2023-02-22 08:13 | PCM.OP.PRO ---
Procedure Report Date of Procedure: 02/22/23 Assessment & Plan Assessment/Plan (1) Pleural effusion, right: PLAN: PROCEDURE: Ultrasound Guided Thoracentesis ORDERING PROVIDER: WISAM Alexandre INDICATION: Female, 87 years old. Right pleural effusion. PROVIDER: JOAQUIN Pinto PROCEDURE: The risks, benefits, and alternatives to the procedure were explained to the patient. The specific risks of bleeding, infection, and pneumothorax requiring chest tube insertion were discussed and accepted. Written informed consent was obtained. Ultrasonographic evaluation of the bilateral lower pleural spaces was carried out. An adequate pocket was identified in the right lower pleural space. The patient was placed in the sitting, upright position. The overlying skin was prepped and draped in sterile fashion. 2% lidocaine was administered subcutaneously for local anesthesia. Under ultrasound guidance, a 5-[place] thoracentesis needle/catheter system was advanced into the right posterior lower pleural fluid collection. 350 ml of clear yellow colored fluid was drained. The catheter was removed, and a sterile dressing was applied. The patient tolerated the procedure well. A chest x-ray was ordered. IMPRESSION: Successful ultrasound-guided thoracentesis of right pleural effusion. Procedures Radiology Radiology US Procedures: 65159 Thoracentesis
== END | disposition home or self-care (01) ==
LOC: US 07:28
PROVIDERS: PCP Family Medicine; Referring Provider Physician Assistant Medical; Visit Provider Physician Assistant Medical
DX: J90 Pleural effusion, not elsewhere classified (principal)
CPT/HCPCS: 32555; 71046

== ENCOUNTER 2023-02-23 16:56 | Inpatient (IN) | payer MEDICARE, SELFPAY ==
[2020-06-07 08:50] VITALS: BMI 19.4
[2023-02-23] VITALS (10 sets, daily range): BP systolic 110–123; BP diastolic 56–67; PULSE 40–84; RESP 12–20; TEMP 36.1–37; O2SAT 97–100; BMI 20.1
--- NOTE | 2023-02-23 17:29 | EX.ED.DYSGE1 ---
HPI History of Present Illness Chief Complaint: Dizziness Informant: patient and family Narrative Narrative: Patient fell near syncopal today without provoking or exerting herself. She sat/lay down, and did not lose consciousness, checked her blood pressure and noted that her pulse was in the 30s, she has a family member who works for the local cardiology office, she advised her to come to the emergency department. Patient states she is feeling little more short of breath than usual, but she is dyspneic off-and-on maybe for a month or 2. She has a history of A-fib and often times when her A-fib is out of whack she feels dyspneic. She had a cardioversion within the last couple weeks. Denies having any chest pain or palpitations recently. Anticoagulated on apixaban without any obvious bleeding recently. [facility] Medical History Arthritis Atherosclerosis of coronary artery of [place] heart without angina pectoris Colonization status Contamination Delayed wound healing Fx cervical vert NOS-closed Fx clavicle History of coronary artery stent placement (04/12/20) History of malignant neoplasm of right breast 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 Left ankle swelling Malignant neoplasm of right female breast Mitral valve insufficiency Non-pressure chronic ulcer of unspecified part of left lower leg with fat layer exposed Non-rheumatic mitral regurgitation Osteomyelitis of left lower extremity Osteopenia Other specified peripheral vascular diseases Rheumatoid arthritis Staph infection STEMI (ST elevation myocardial infarction) Venous insufficiency (chronic) (peripheral) Home Medications calcium carbonate 200 mg calcium (500 mg) chewable tablet 1,000 mg PO DAILY@0800 indigestion 10/26/18 [History Last Taken 05/16/20] abatacept 50 mg/0.4 mL subcutaneous syringe 750 mg IV QMONTH arthritis 12/13/19 [History Last Taken Unknown] acetaminophen 500 mg tablet 1,000 mg PO BID pain 04/12/20 [History Last Taken 05/16/20] aspirin 81 mg tablet,delayed release 81 mg PO DAILY@0800 heart 05/16/20 [History Last Taken 01/27/23] folic acid 1 mg tablet 1 mg PO BID supplement 05/23/20 [History Last Taken 01/27/23] methotrexate sodium 2.5 mg tablet 15 mg PO BRENNER arthritis 05/23/20 [History Last Taken Unknown] leucovorin calcium 15 mg tablet 15 mg PO QWEEK 09/25/20 [History Last Taken Unknown] levothyroxine 75 mcg tablet 75 mcg PO DAILY thyroid 12/12/21 [History Last Taken 01/27/23] amiodarone 200 mg tablet 200 mg PO DAILY #90 tabs 02/04/23 [Rx Last Taken Unknown] apixaban 2.5 mg tablet (Eliquis) 2.5 mg PO BID #180 tabs 02/04/23 [Rx Last Taken Unknown] furosemide 40 mg tablet (Lasix) 40 mg PO BID #180 tabs 02/04/23 [Rx Last Taken Unknown] lorazepam 0.5 mg tablet 0.25 mg PO QHS PRN anxiety 02/04/23 [History Last Taken Unknown] mirtazapine 15 mg tablet 15 mg PO DAILY 02/04/23 [History Last Taken Unknown] ranolazine 500 mg tablet,extended release,12 hr (Ranexa) 500 mg PO BID #60 tabs 02/04/23 [Rx Last Taken Unknown] spironolactone 25 mg tablet 25 mg PO QAM #90 tabs 02/09/23 [Rx Last Taken Unknown] metoprolol tartrate 50 mg tablet 25 mg PO BID 02/23/23 [History Last Taken Unknown] Allergy/AdvReac Type Severity Reaction Status Date / Time ticagrelor [From Brilinta] AdvReac Severe Severe Verified 02/23/23 17:00 dyspnea on exertion Family History Father Clotting disorder Heart disease Surgical History History of ankle surgery History of arthroplasty of left ankle History of cardioversion (01/27/23) History of left heart catheterization (LHC) (~01/02/21) History of mastectomy History of tubal ligation Presence of coronary angioplasty implant and graft (~04/12/20) Social History Smoking Status: Never smoker alcohol intake: never substance use type: does not use caffeine: Yes ROS ROS ED Constitutional Constitutional ED: Reports fatigue and weakness; Denies chills or fever(s) Eyes Eyes: Denies change in vision or diplopia ENT ENT ED: Denies rhinorrhea or sore throat Cardiovascular Cardiovascular: Reports lightheadedness; Denies chest pain, leg edema or palpitations Respiratory/Chest Respiratory/Chest: Reports dyspnea; Denies cough Gastrointestinal Gastrointestinal: Denies abdominal pain, diarrhea, nausea or vomiting Genitourinary Genitourinary ED: Denies dysuria or hematuria Musculoskeletal Musculoskeletal: Denies back pain or neck pain Integumentary Denies abscess or rash Neurologic Neurologic: Denies headache(s), paresthesias or weakness Psychiatric Psychiatric: Denies anxiety or suicidal thoughts EXAM Physical Exam Const Vital Signs: 02/23/23 16:58 02/23/23 17:19 02/23/23 17:28 Temperature 97 F L Temperature Source Temporal Pulse Rate 40 L Respiratory Rate 18 Respiratory Effort Normal Non-Labored Respiratory Pattern Normal Blood Pressure 121/58 H Blood Pressure Mean 79 Pulse Ox 100 Oxygen Delivery Method Room Air Nasal Cannula Oxygen Flow Rate (L/min) 4 02/23/23 17:56 02/23/23 18:00 02/23/23 19:00 Temperature 98.6 F 98.5 F Temperature Source Temporal Temporal Pulse Rate 50 L 59 L 79 Respiratory Rate 16 14 14 Respiratory Effort Respiratory Pattern Blood Pressure 110/56 L 118/61 115/66 Blood Pressure Mean 74 80 82 Pulse Ox 100 99 98 Oxygen Delivery Method Room Air Room Air Room Air Oxygen Flow Rate (L/min) Positive well nourished and well developed General Appearance ED: well developed and NAD HEENT Reports moist mucous membranes normocephalic and atraumatic Eyes PERRL and EOMs intact bilaterally Neck full ROM and supple Resp normal respiratory effort and clear to auscultation bilaterally Cardio regular rate and regular rhythm Rate: bradycardia GI non-tender and non-distended Auscultation: normoactive bowel sounds Palpation: soft Back/Spine no CVA tenderness General Back: other FROM Extremity normal to inspection General Extremety ED: Negative for edema, pulses abnormal or tenderness General Extremity: Negative for edema or pulses abnormal Neuro oriented x3, CN's II-XII intact bilaterally and no sensory deficits noted Sensorium / Orientation: awake and alert Motor Exam: strength 5/5 throughout Psych mental status grossly normal Skin no rashes or lesions noted and no wounds MDM MDM MDM Narrative Medical decision making narrative: Patient remained stable while being observed in the ER at rest with heart rate in the 30-40s. Discussed with cardiology who agree with admitting her for pacemaker placement and holding amiodarone and metoprolol which appear to be the only AV zoila blockers she is on. Chest x-ray 1 view neck for acute pneumonia on my interpretation, there is a tiny right pleural effusion. I reviewed the radiology report. EKG consistent with complete heart block with underlying sinus tach versus ectopic atrial tach versus a flutter that is slow. Troponin within normal limits, creatinine slightly elevated. Cardiology recommended against pacing transcutaneously or transvenously if the patient is tolerating bradycardia rest which she is, will admit to ICU. Discussed with hospitalist. Lab Data Attestation: I reviewed the patient's lab results. Labs: Laboratory Results - last 24 hr 02/23/23 17:07 WBC 8.0 RBC 5.03 Hgb 15.8 H Hct 48.2 H MCV 95.8 MCH 31.4 MCHC 32.8 RDW Std Deviation 48.4 H RDW Coeff of Sharad 13.6 Plt Count 239 MPV 10.4 Immature Gran % (Auto) 0.500 Neut % (Auto) 68.3 Lymph % (Auto) 20.1 Cass % (Auto) 10.2 H Eos % (Auto) 0.4 Baso % (Auto) 0.5 Absolute Neuts (auto) 5.5 Absolute Lymphs (auto) 1.60 Nucleated RBC % 0 Sodium 129 L Potassium 5.0 Chloride 96 L Carbon Dioxide 23.0 Anion Gap 10 BUN 34 H Creatinine 1.69 H Estim Creat Clear Calc 20.75 Est GFR (MDRD) Af Amer 37 L Est GFR (MDRD) Non-Af 31 L BUN/Creatinine Ratio 20.1 H Glucose 156 H Calcium 9.6 Troponin I High Sens 40 Radiography Diagnostic Testing: Clinical Impression(s) from Imaging Studies Chest X-Ray 02/23/23 17:45 IMPRESSION: Tiny residual right pleural effusion. No focal infiltration Electronically Signed: Keyur Farrell MD at 18:13 EDT , Rhythm Strip Rhythm Strip: 3rd deg HB Rate: 38 Ectopy: None EKG Initial EKG: Attestation: I personally reviewed and interpreted this EKG as follows: Interpretation: No Acute Injury Pattern and AV Block (3rd deg) Comments: Complete heart block, atrial tachycardia versus sinus tach versus slow atrial flutter in the background Prior EKG tracings: available for review Prior: Changed Management Discussion w/another healthcare provider: Hospitalist and Emt I/99 (Cardiology Roly, admit for pacemaker, discontinue amiodarone and metoprolol, no pacing if pt awake) Discharge Plan Dx/Rx/DC Orders Clinical Impression: Complete heart block, Near syncope Disposition Disposition: Acute Care Hospital [facility]
--- NOTE | 2023-02-23 17:45 | RAD_ITS ---
STUDY: X-RAY CHEST REASON FOR EXAM: Female, 87 years old. sob TECHNIQUE: AP portable COMPARISON: February 22, 2023 FINDINGS: Lungs are mildly hyperinflated but clear.. There is no evidence for pleural effusion however there do appear to be calcified pleural plaque in the right hemithorax. There is tiny right pleural effusion Mediport catheter seen on the left with tip in distal superior vena cava Normal size heart. Normal mediastinum with small calcified right hilar node Normal visualized pulmonary arteries. Mildly calcified aortic arch and descending thoracic aorta. Dorsal spine demonstrates degenerative change. Normal visualized ribs, clavicles, and shoulders. There is no demonstrated abnormality of the visualized soft tissue structures of the upper abdomen. RAD/Chest 1 View (Portable) IMPRESSION: Tiny residual right pleural effusion. No focal infiltration Electronically Signed: Keyur Farrell MD at 18:13 EDT ,
[2023-02-23] MEDS: 0.9% Normal Saline (1000mL) 1,000 ML 150 ML IV (17:49)
[2023-02-23 18:07] LABS: Absolute Neutrophil Count 5.5 X10^3/uL (2.0-7.7); Basophil# 0.04 X10^3/uL; Basophil% 0.5 % (0-1); Eosinophil# 0.03 X10^3/uL; Eosinophils% 0.4 % (0-5); Hematocrit 48.2 % (37-47); Hemoglobin 15.8 g/dL (12.0-15.0); Lymphocyte % 20.1 % (19-41); Mean Corp Hgb Conc 32.8 g/dL (32-36); Mean Corpuscular Hgb 31.4 pg (27.0-32.0); Mean Corpuscular Volume 95.8 fL (81-99); Mean Platelet Vol. 10.4 fl (6.2-12.0); Monocyte# 0.81 X10^3/uL; Monocyte% 10.2 % (0-10); NRBC Flagged by Analyzer 0 % (0-5); Neutrophil # 5.45 X10^3/uL (2.7-7.7); Neutrophil % 68.3 % (47-70); Platelet Count 239 K/mm3 (150-450); RBC Distribution Width CV 13.6 % (11.6-14.6); RBC Distribution Width SD 48.4 fl (35.1-43.9); Red Blood Count 5.03 M/mm3 (4.2-5.4)
[2023-02-23 18:34] LABS: Anion Gap 10 (5-15); BUN 34 mg/dL (7-18); BUN/Creat Ratio 20.1 RATIO (10-20); Calcium,Total 9.6 mg/dL (8.5-10.1); Chloride 96 mmol/L (98-107); Creatinine, Serum 1.69 mg/dL (0.55-1.02); EST Glomerular Filtration Rate 31 mL/min (>60); Est Glom Filt Rate - Afr Amer 37 mL/min (>60); Estimated Creatinine Clearance 20.75 ml/min; Glucose 156 mg/dL (74-106); Sodium Level 129 mmol/L (136-145); Troponin-I HS 40 pg/mL (3.0-54.0)
--- NOTE | 2023-02-23 19:44 | HP.PCM.HOS_ITS ---
HPI - General General Date of Admission: 02/23/23 Date of Service: 02/23/23 Chief Complaint: Near syncope HPI Narrative ROBERTO RASMUSSEN, is a 87 F with a significant history of CAD status post stent; atrial fibrillation on metoprolol and amiodarone; breast cancer status post right mastectomy, and chemoradiation; and a pleural effusion status post arthrocentesis on 02/23/2020 who presents to the emergency department with 2 episodes of presyncope that occurred within 1 hour. And patient presented within 1 hour of onset of symptoms . Patient reports history of chronic shortness of breath that worsened on the day of presentation. With her presyncopal episode reportedly her pulse was in the 30s. Also patient reports previous episodes of near syncope . Patient called her daughter who works over the [employer]; and she was advised to come to the emergency department. Per family and patient patient to be having a pacemaker placed on Wednesday at 02/26/2023. Emergency C department reports discussing case with Dr. Dunham, cardiology on- call who recommended that patient's metoprolol and amiodarone be held. [facility] Medical History Arthritis Atherosclerosis of coronary artery of [place] heart without angina pectoris CKD (chronic kidney disease) stage 3, GFR 30-59 ml/min Colonization status Contamination Delayed wound healing Fx cervical vert NOS-closed Fx clavicle History of coronary artery stent placement (04/12/20) History of malignant neoplasm of right breast 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 Left ankle swelling Malignant neoplasm of right female breast Mitral valve insufficiency Non-pressure chronic ulcer of unspecified part of left lower leg with fat layer exposed Non-rheumatic mitral regurgitation Osteomyelitis of left lower extremity Osteopenia Other specified peripheral vascular diseases Rheumatoid arthritis Staph infection STEMI (ST elevation myocardial infarction) Venous insufficiency (chronic) (peripheral) Home Medications calcium carbonate 200 mg calcium (500 mg) chewable tablet 1,000 mg PO DAILY@0800 indigestion 10/26/18 [History Last Taken 05/16/20] abatacept 50 mg/0.4 mL subcutaneous syringe 750 mg IV QMONTH arthritis 12/13/19 [History Last Taken Unknown] acetaminophen 500 mg tablet 1,000 mg PO BID pain 04/12/20 [History Last Taken 05/16/20] aspirin 81 mg tablet,delayed release 81 mg PO DAILY@0800 heart 05/16/20 [History Last Taken 01/27/23] folic acid 1 mg tablet 1 mg PO BID supplement 05/23/20 [History Last Taken 01/27/23] methotrexate sodium 2.5 mg tablet 15 mg PO BRENNER arthritis 05/23/20 [History Last Taken Unknown] leucovorin calcium 15 mg tablet 15 mg PO QWEEK 09/25/20 [History Last Taken Unknown] levothyroxine 75 mcg tablet 75 mcg PO DAILY thyroid 12/12/21 [History Last Taken 01/27/23] amiodarone 200 mg tablet 200 mg PO DAILY #90 tabs 02/04/23 [Rx Last Taken Unknown] apixaban 2.5 mg tablet (Eliquis) 2.5 mg PO BID #180 tabs 02/04/23 [Rx Last Taken Unknown] furosemide 40 mg tablet (Lasix) 40 mg PO BID #180 tabs 02/04/23 [Rx Last Taken Unknown] lorazepam 0.5 mg tablet 0.25 mg PO QHS PRN anxiety 02/04/23 [History Last Taken Unknown] mirtazapine 15 mg tablet 15 mg PO DAILY 02/04/23 [History Last Taken Unknown] ranolazine 500 mg tablet,extended release,12 hr (Ranexa) 500 mg PO BID #60 tabs 02/04/23 [Rx Last Taken Unknown] spironolactone 25 mg tablet 25 mg PO QAM #90 tabs 02/09/23 [Rx Last Taken Unknown] metoprolol tartrate 50 mg tablet 25 mg PO BID 02/23/23 [History Last Taken Unknown] Allergy/AdvReac Type Severity Reaction Status Date / Time ticagrelor [From Brilinta] AdvReac Severe Severe Verified 02/23/23 17:00 dyspnea on exertion Family History Father Clotting disorder Heart disease Surgical History History of ankle surgery History of arthroplasty of left ankle History of cardioversion (01/27/23) History of left heart catheterization (LHC) (~01/02/21) History of mastectomy History of tubal ligation Presence of coronary angioplasty implant and graft (~04/12/20) Social History Smoking Status: Never smoker alcohol intake: never substance use type: does not use caffeine: Yes ROS ROS Narrative Pertinent positives and pertinent negatives as noted in HPI. All other systems were reviewed and are negative Vital Signs Vital Signs Vital Signs: 02/23/23 16:58 02/23/23 17:19 02/23/23 17:28 Temperature 97 F L Temperature Source Temporal Pulse Rate 40 L Respiratory Rate 18 Respiratory Effort Normal Non-Labored Respiratory Pattern Normal Blood Pressure 121/58 H Blood Pressure Mean 79 Pulse Ox 100 Oxygen Delivery Method Room Air Nasal Cannula Oxygen Flow Rate (L/min) 4 02/23/23 17:56 02/23/23 18:00 02/23/23 19:00 Temperature 98.6 F 98.5 F Temperature Source Temporal Temporal Pulse Rate 50 L 59 L 79 Respiratory Rate 16 14 14 Respiratory Effort Respiratory Pattern Blood Pressure 110/56 L 118/61 115/66 Blood Pressure Mean 74 80 82 Pulse Ox 100 99 98 Oxygen Delivery Method Room Air Room Air Room Air Oxygen Flow Rate (L/min) Weight Weight: 55 kg Body Mass Index (BMI) 20.1 Physical Exam Narrative Physical exam: General: Well-nourished, well-developed. Head: Normocephalic, atraumatic, no tenderness Eyes: Vision is grossly intact. EOMI ENT, no trauma, dry mucous membranes, no rhinorrhea Neck: Nontender, No thyromegaly. CVS: Regular rate and rhythm. S1-S2 present. No murmur, gallop or rub. Respiratory : clear to auscultation bilaterally, chest wall nontender Abdomen: Soft, nontender, nondistended, normal bowel sounds, no masses : Deferred Back: Nontender, no CVA tenderness, no midline spinal tenderness, deformities, step-offs Extremities: Nontender full range of motion, no trauma. Deformed fingers Skin: Normal color, no trauma, abrasions Neuro: Alert, oriented, cranial nerves II through XII grossly intact. Psychiatry: Normal mood. Normal affect. Not depressed. Not anxious. Results Lab / Micro Data Attestation: I reviewed the patient's lab results. 02/23/23 17:07 02/23/23 17:07 Labs: Laboratory Results - last 24 hr 02/23/23 17:07: WBC 8.0, RBC 5.03, Hgb 15.8 H, Hct 48.2 H, MCV 95.8, MCH 31.4, MCHC 32.8, RDW Std Deviation 48.4 H, RDW Coeff of Sharad 13.6, Plt Count 239, MPV 10.4, Immature Gran % (Auto) 0.500, Neut % (Auto) 68.3, Lymph % (Auto) 20.1, [place] % (Auto) 10.2 H, Eos % (Auto) 0.4, Baso % (Auto) 0.5, Absolute Neuts (auto) 5.5, Absolute Lymphs (auto) 1.60, Nucleated RBC % 0, Sodium 129 L, Potassium 5.0, Chloride 96 L, Carbon Dioxide 23.0, Anion Gap 10, BUN 34 H, Creatinine 1.69 H, Estim Creat Clear Calc 20.75, Est GFR (MDRD) Af Amer 37 L, Est GFR (MDRD) N on-Af 31 L, BUN/Creatinine Ratio 20.1 H, Glucose 156 H, Calcium 9.6, Troponin I High Sens 40 Rhythm Strip Rhythm Strip: 3rd deg HB Rate: 38 Ectopy: None Radiology Impression Chest X-Ray 02/23/23 17:45 IMPRESSION: Tiny residual right pleural effusion. No focal infiltration Electronically Signed: Keyur Farrell MD at 18:13 EDT , Assessment & Plan Assessment/Plan (1) ASHLI (acute kidney injury): (2) Complete heart block: PLAN: Plan Complete heart block Review of labs shows potassium of 5.0. Check magnesium. Will admit patient to intensive care unit and keep patient n.p.o. after midnight. Hold amiodarone and metoprolol. Hold Eliquis. Cardiology consult. Hyponatremia Sodium on presentation was 129. BUN is 34. Patient has dry mucous membrane. Patient is on diuretics. Likely secondary to dehydration and hypovolemia. Hold home diuretics. Gentle IV hydration. Trend BMP. Cautious use of IV fluids as patient reports of having arthrocentesis a day before presentation. She also reports having in the past before the current one ASHLI on CKD stage IIIa Likely secondary to dehydration and hypovolemia. IV hydration as above. Trend. Avoid nephrotoxic's. Paroxysmal A-fib/a flutter Holding home Eliquis secondary to patient being a candidate of pacemaker. History of pleural effusion Chest x-ray on presentation and previous chest x-ray was independently interpreted.. Agrees with radiology interpretation of status post right thorace ntesis. No evidence of pneumothorax. DVT prophylaxis Subcutaneous Lovenox ordered. Time spent in the patient's overall evaluation,decision-making process, review of diagnostic data, adjustment of management, discussion with other providers, nursing and ancillary staff involved in patient's care documentation, 70 minutes. Charges/Coding Visit Charges Inpatient E&M: 59080 Init Hosp L3
[2023-02-23] MEDS: 0.9% Normal Saline (1000mL) 1,000 ML 75 ML IV (22:52)
[2023-02-23] MEDS: Acetaminophen 500 MG Tablet 1000 MG PO (22:53)
[2023-02-23] MEDS: Ranolazine 500 MG Tablet PO (22:53)
[2023-02-24] VITALS (26 sets, daily range): BP systolic 74–126; BP diastolic 50–85; PULSE 68–87; RESP 10–27; TEMP 36.2–36.6; O2SAT 90–100; BMI 20.9
[2023-02-24] MEDS: Levothyroxine 75 MCG Tablet PO (05:02)
[2023-02-24 05:13] LABS: Absolute Lymphocyte Count 1.69 X10^3/uL (0.83-4.51); Absolute Neutrophil Count 1.7 X10^3/uL (2.0-7.7); Basophil# 0.02 X10^3/uL; Basophil% 0.5 % (0-1); Eosinophil# 0.04 X10^3/uL; Hematocrit 42.5 % (37-47); Lymphocyte # 1.69 X10^3/ul (0.83-4.51); Lymphocyte % 41.1 % (19-41); Mean Corp Hgb Conc 32.9 g/dL (32-36); Mean Corpuscular Hgb 31.7 pg (27.0-32.0); Mean Corpuscular Volume 96.2 fL (81-99); Mean Platelet Vol. 10.1 fl (6.2-12.0); Monocyte# 0.62 X10^3/uL; Monocyte% 15.1 % (0-10); NRBC Flagged by Analyzer 0 % (0-5); Neutrophil # 1.73 X10^3/uL (2.7-7.7); Neutrophil % 42.1 % (47-70); Platelet Count 167 K/mm3 (150-450); RBC Distribution Width CV 13.7 % (11.6-14.6); RBC Distribution Width SD 48.5 fl (35.1-43.9); Red Blood Count 4.42 M/mm3 (4.2-5.4); White Blood Count 4.1 K/mm3 (4.4-11.0)
[2023-02-24 06:25] LABS: Anion Gap 4 (5-15); BUN 23 mg/dL (7-18); BUN/Creat Ratio 23.1 RATIO (10-20); Calcium,Total 8.2 mg/dL (8.5-10.1); Chloride 107 mmol/L (98-107); Creatinine, Serum 0.99 mg/dL (0.55-1.02); EST Glomerular Filtration Rate 56 mL/min (>60); Est Glom Filt Rate - Afr Amer 68 mL/min (>60); Glucose 94 mg/dL (74-106); Magnesium 1.8 mg/dL (1.6-2.6); Potassium 4.3 mmol/L (3.5-5.1); Sodium Level 137 mmol/L (136-145); Thyroid Stim Hormone (TSH) 5.58 uIU/mL (0.358-3.74)
--- NOTE | 2023-02-24 07:17 | PCM.PN.HOSP ---
Reason for Visit Reason for Visit: Diagnoses Atrioventricular block, complete (02/23/23) Acute kidney failure, unspecified (02/23/23) Subjective Subjective Feels well. No complaints. Objective Data Objective Data Vital Signs: Vital Signs Temp Pulse Resp BP Pulse Ox O2 Del Method O2 Flow Rate 36.4 C L 80 19 H 98/50 L 97 Room Air 3 02/24/23 00:00 02/24/23 07:00 02/24/23 07:00 02/24/23 07:00 02/24/23 07:00 02/24/23 07:00 02/23/23 20:00 Oxygen Flow Rate (L/min) 3 Oxygen Delivery Method Room Air Weight: 57.107 kg Body Mass Index (BMI) 20.9 Intake & Output: Intake and Output for Last 24 Hours 02/22/23 02/23/23 02/24/23 23:59 23:59 23:59 Intake Total 907 / 907 0 / 0 Output Total 300 / 300 Balance 607 / 607 0 / 0 Lab / Micro Data 02/24/23 05:00 02/24/23 05:53 Labs: Laboratory Results - last 24 hr 02/23/23 17:07: WBC 8.0, RBC 5.03, Hgb 15.8 H, Hct 48.2 H, MCV 95.8, MCH 31.4, MCHC 32.8, RDW Std Deviation 48.4 H, RDW Coeff of Sharad 13.6, Plt Count 239, MPV 10.4, Immature Gran % (Auto) 0.500, Neut % (Auto) 68.3, Lymph % (Auto) 20.1, [place] % (Auto) 10.2 H, Eos % (Auto) 0.4, Baso % (Auto) 0.5, Absolute Neuts (auto) 5.5, Absolute Lymphs (auto) 1.60, Nucleated RBC % 0, Sodium 129 L, Potassium 5.0, Chloride 96 L, Carbon Dioxide 23.0, Anion Gap 10, BUN 34 H, Creatinine 1.69 H, Estim Creat Clear Calc 20.75, Est GFR (MDRD) Af Amer 37 L, Est GFR (MDRD) Non-Af 31 L, BUN/Creatinine Ratio 20.1 H, Glucose 156 H, Calcium 9.6, Troponin I High Sens 40 02/24/23 05:00: WBC 4.1 L, RBC 4.42, Hgb 14.0, Hct 42.5, MCV 96.2, MCH 31.7, MCHC 32.9, RDW Std Deviation 48.5 H, RDW Coeff of Sharad 13.7, Plt Count 167, MPV 10.1, Immature Gran % (Auto) 0.200, Neut % (Auto) 42.1 L, Lymph % (Auto) 41.1 H, [place] % (Auto) 15.1 H, Eos % (Auto) 1.0, Baso % (Auto) 0.5, Absolute Neuts (auto) 1.7 L, Absolute Lymphs (auto) 1.69, Nucleated RBC % 0, Sodium Cancelled, Potassium Cancelled, Chloride Cancelled, Carbon Dioxide Cancelled, Anion Gap Cancelled, BUN Cancelled, Creatinine Cancelled, Estim Creat Clear Calc Cancelled, Est GFR (MDRD) Af Amer Cancelled, Est GFR (MDRD) Non-Af Cancelled, BUN/Creatinine Ratio Cancelled, Glucose Cancelled, Calcium Cancelled, Magnesium Cancelled, TSH Cancelled 02/24/23 05:53: Sodium 137, Potassium 4.3, Chloride 107, Carbon Dioxide 26.0, Anion Gap 4 L, BUN 23 H, Creatinine 0.99, Estim Creat Clear Calc 36.70, Est GFR (MDRD) Af Amer 68, Est GFR (MDRD) Non-Af 56 L, BUN/Creatinine Ratio 23.1 H, Glucose 94, Calcium 8.2 L, Magnesium 1.8, TSH 5.58 H Radiography Diagnostic Testing: Radiology Impression Chest X-Ray 02/23/23 17:45 IMPRESSION: Tiny residual right pleural effusion. No focal infiltration Electronically Signed: Keyur Farrell MD at 18:13 EDT , Rhythm Strip Rhythm Strip: 3rd deg HB Rate: 38 Ectopy: None Physical Exam Const alert and no apparent distress HEENT head/scalp atraumatic and moist oral mucous membranes Resp normal respiratory effort, no retractions, no use of accessory muscles and clear to auscultation bilaterally Cardio regular rate, regular rhythm, S1 normal heart sound and S2 normal heart sound GI normal to inspection, nondistended, normoactive bowel sounds, soft to palpation, non-tender and non-distended Assessment & Plan Assessment/Plan (1) Complete heart block: PLAN: Review of labs shows potassium of 5.0. Check magnesium. Hold amiodarone and metoprolol. Hold Eliquis. Cardiology consult. PPM placed today with atrial and vetricular leads. (2) ASHLI (acute kidney injury): PLAN: Resolved: ASHLI on CKD stage IIIa Likely secondary to dehydration and hypovolemia. (3) Hyponatremia: PLAN: Sodium on presentation was 129. BUN is 34. Patient has dry mucous membrane. Patient is on diuretics. Likely secondary to dehydration and hypovolemia. Hold home diuretics. Gentle IV hydration. Trend BMP. Cautious use of IV fluids as patient reports of having arthrocentesis a day before presentation. She also reports having in the past before the current one PLAN: Plan Chronic conditions: Paroxysmal A-fib/a flutter: Holding home Eliquis secondary to patient being a candidate of pacemaker. DVT prophylaxis: scds until apixaban can be resumed. Charges/Coding Visit Charges Inpatient E&M: 70152 Subs Hosp L2
--- NOTE | 2023-02-24 07:29 | PCM.CONS.C ---
Assessment & Plan Assessment/Plan (1) Complete heart block: PLAN: She presents with atrial fibrillation with complete heart block. This was likely exacerbated by her medication the beta-kemal as well as the amiodarone. The above have been temporarily discontinued. The plan will be to proceed with a permanent pacemaker implantation. The risk benefits alternatives of been explained to her she understands and agrees to proceed. (2) AF (paroxysmal atrial fibrillation): PLAN: She does have atrial fibrillation which has been paroxysmal and tending towards persistent. My recommendation will be for her to continue the current anticoagulation after she has the permanent pacemaker implanted. (3) Nonischemic cardiomyopathy: PLAN: She does have a mild cardiomyopathy which I suspect is ischemic from her previous coronary artery disease. We will recommend optimization of medical therapy with beta-kemal and SAMARA inhibitor./ (4) Atherosclerosis of coronary artery of [place] heart without angina pectoris: QUALIFIERS: Coronary Disease-Associated Artery/Lesion type: [place] artery Qualified Code(s): I25.10 - Atherosclerotic heart disease of [place] coronary artery without angina pectoris PLAN: She has evidence of atherosclerotic cardiovascular disease. The plan be to continue the current medical therapy. HPI Consult Data Date of Consult: 02/24/23 HPI Narrative HPI Narrative: ROBERTO RASMUSSEN, is a 87 F who presents to the emergency room with complaints of weakness and fatigue and slow heart rate. She had texted her granddaughter saying that her heart rate was in the 30s and was asked to come to the emergency room. In the emergency room she was noted to be in atrial flutter with a slow ventricular response rate. She had undergone DC cardioversion about 3 weeks prior and was put on beta-kemal and amiodarone for maintenance of sinus rhythm. She does have a hx of CAD status post inferior STEMI status post RCA thrombectomy and PTCA/stent in April 2020 MVP/MR, hyperlipidemia, hypertension, COPD, and hypothyroidism. As you recall, she underwent a stress test on 10/23/2020 was negative for ischemia. Her echocardiogram on 10/23/2020 showed ejection fraction of 65% and akinetic apex. She continued to expresses concerns regarding shortness of breath and underwent pulmonary function tests as well as laboratory evaluation. Her pulmonary function test on 11/19/2020 showed irreversible mild large airways obstructive ventilatory defect. Her BNP on 11/14/2020 was elevated 298.6. She was seen by pulmonology team on 12/09/2020. She continued to have shortness of breath despite inhaler medications. Thus, she underwent a heart catheterization to assess coronary artery disease component. She proceeded with heart catheterization on 01/02/2021 that showed patent mid RCA stent and LAD is angiographically normal with possible mid intramyocardial bridging segment with RADHA-3 flow in both systole and diastole. Circumflex was noted be angiographically normal. Medical therapy was recommended. She presented to the Emergency Department on 01/03/2023 for chest pain. Her EKG showed sinus rhythm with PACs. Her troponin was noted to be positive. She was admitted for orthostatic hypotension and laboratory monitoring. Her medications were adjusted and she was discharged for outpatient follow-up. She was then seen in the emergency department on 01/06/2023, 01/18/2023, and 01/27/2023. On 01/06/2023 she was noted be in atrial fibrillation. She was being set up for cardioversion, but converted to sinus rhythm. She continued to have shortness of breath and her medications were adjusted. She was ultimately started on amiodarone therapy and underwent a DEBRA guided cardioversion version for atrial flutter. Her DEBRA showed ejection fraction of 45%, moderately enlarged left atrium, and moderately enlarged right atrium. She had been doing fairly well with mild shortness of breath until her presentation yesterday. [facility] Medical History Arthritis Atherosclerosis of coronary artery of [place] heart without angina pectoris CKD (chronic kidney disease) stage 3, GFR 30-59 ml/min Colonization status Contamination Delayed wound healing Fx cervical vert NOS-closed Fx clavicle History of coronary artery stent placement (04/12/20) History of malignant neoplasm of right breast 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 Left ankle swelling Malignant neoplasm of right female breast Mitral valve insufficiency Non-pressure chronic ulcer of unspecified part of left lower leg with fat layer exposed Non-rheumatic mitral regurgitation Osteomyelitis of left lower extremity Osteopenia Other specified peripheral vascular diseases Rheumatoid arthritis Staph infection STEMI (ST elevation myocardial infarction) Venous insufficiency (chronic) (peripheral) Home Medications calcium carbonate 200 mg calcium (500 mg) chewable tablet 1,000 mg PO DAILY@0800 indigestion 10/26/18 [History Last Taken 05/16/20] abatacept 50 mg/0.4 mL subcutaneous syringe 750 mg IV QMONTH arthritis 12/13/19 [History Last Taken Unknown] acetaminophen 500 mg tablet 1,000 mg PO BID pain 04/12/20 [History Last Taken 05/16/20] aspirin 81 mg tablet,delayed release 81 mg PO DAILY@0800 heart 05/16/20 [History Last Taken 01/27/23] folic acid 1 mg tablet 1 mg PO BID supplement 05/23/20 [History Last Taken 01/27/23] methotrexate sodium 2.5 mg tablet 15 mg PO BRENNER arthritis 05/23/20 [History Last Taken Unknown] leucovorin calcium 15 mg tablet 15 mg PO QWEEK 09/25/20 [History Last Taken Unknown] levothyroxine 75 mcg tablet 75 mcg PO DAILY thyroid 12/12/21 [History Last Taken 01/27/23] amiodarone 200 mg tablet 200 mg PO DAILY #90 tabs 02/04/23 [Rx Last Taken Unknown] apixaban 2.5 mg tablet (Eliquis) 2.5 mg PO BID #180 tabs 02/04/23 [Rx Last Taken Unknown] furosemide 40 mg tablet (Lasix) 40 mg PO BID #180 tabs 02/04/23 [Rx Last Taken Unknown] lorazepam 0.5 mg tablet 0.25 mg PO QHS PRN anxiety 02/04/23 [History Last Taken Unknown] mirtazapine 15 mg tablet 15 mg PO DAILY 02/04/23 [History Last Taken Unknown] ranolazine 500 mg tablet,extended release,12 hr (Ranexa) 500 mg PO BID #60 tabs 02/04/23 [Rx Last Taken Unknown] spironolactone 25 mg tablet 25 mg PO QAM #90 tabs 02/09/23 [Rx Last Taken Unknown] metoprolol tartrate 50 mg tablet 25 mg PO BID 02/23/23 [History Last Taken Unknown] Allergy/AdvReac Type Severity Reaction Status Date / Time ticagrelor [From Brilinta] AdvReac Severe Severe Verified 02/23/23 17:00 dyspnea on exertion Family History Father Clotting disorder Heart disease Surgical History History of ankle surgery History of arthroplasty of left ankle History of cardioversion (01/27/23) History of left heart catheterization (LHC) (~01/02/21) History of mastectomy History of tubal ligation Presence of coronary angioplasty implant and graft (~04/12/20) Social History Smoking Status: Never smoker alcohol intake: never substance use type: does not use caffeine: Yes ROS Constitutional Constitutional: Reports fatigue; Denies fever(s) or weight loss Eyes Eyes: Reports systems reviewed and no addt'l complaints, except as documented ENT HEENT: Reports systems reviewed and no addt'l complaints, except as documented Cardiovascular Cardiovascular: Reports dyspnea at rest, dyspnea on exertion and palpitations; Denies chest pain at rest, chest pain with activity, edema or paroxysmal nocturnal dyspnea Respiratory/Chest Respiratory/Chest: Reports dyspnea on exertion, shortness of breath at rest and shortness of breath with exertion; Denies productive cough Gastrointestinal Gastrointestinal: Denies change in bowel habits, nausea, vomiting or weight changes Genitourinary Genitourinary: Denies difficulty urinating Musculoskeletal Musculoskeletal: Denies joint stiffness or muscle weakness Integumentary Integumentary: Denies lesions Neurologic Neurologic: Denies dizziness or syncope Psychiatric Psychiatric: Denies anxiety Endocrine Endocrinology: Denies excessive sweating or fatigue Hematologic/Lymphatic Hematologic/Lymphatic: Denies anemia Allergic/Immunologic Allergic/Immunologic: Denies seasonal rhinorrhea Physical Exam Const alert, oriented x3 and no apparent distress General Appearance: cooperative HEENT hearing grossly normal bilaterally Head and Scalp: atraumatic Eyes EOMs intact bilaterally Neck General: normal visual inspection Chest inspection of chest normal and palpation of chest normal Resp normal respiratory effort Auscultation: clear to auscultation bilaterally Cardio regular rate, regular rhythm, S1 normal heart sound and S2 normal heart sound Jugular Venous Distention: JVD GI normal to inspection, nondistended, normoactive bowel sounds Extremity normal capillary refill and no pedal edema Peripheral Pulses: Yes pulses 2+ throughout and femoral pulses present Skin no rashes or lesions noted Neuro oriented x3 and CN's II-XII intact bilaterally Psych Appearance: grossly normal and appropriate Risk Stratification Risk Stratification Applicable: No Objective Data Vital Signs: Vital Signs Temp Pulse Resp BP Pulse Ox O2 Del Method O2 Flow Rate 97.6 F L 80 19 H 98/50 L 97 Room Air 3 02/24/23 00:00 02/24/23 07:00 02/24/23 07:00 02/24/23 07:00 02/24/23 07:00 02/24/23 07:00 02/23/23 20:00 Oxygen Flow Rate (L/min) 3 Oxygen Delivery Method Room Air Weight: 125 lb 14.4 oz Body Mass Index (BMI) 20.9 Intake & Output: Intake and Output for Last 24 Hours 02/22/23 02/23/23 02/24/23 23:59 23:59 23:59 Intake Total 907 / 907 0 / 0 Output Total 300 / 300 Balance 607 / 607 0 / 0 Lab / Micro Data 02/24/23 05:00 02/24/23 05:53 Labs: Laboratory Results - last 24 hr 02/23/23 17:07: WBC 8.0, RBC 5.03, Hgb 15.8 H, Hct 48.2 H, MCV 95.8, MCH 31.4, MCHC 32.8, RDW Std Deviation 48.4 H, RDW Coeff of Sharad 13.6, Plt Count 239, MPV 10.4, Immature Gran % (Auto) 0.500, Neut % (Auto) 68.3, Lymph % (Auto) 20.1, Leslie % (Auto) 10.2 H, Eos % (Auto) 0.4, Baso % (Auto) 0.5, Absolute Neuts (auto) 5.5, Absolute Lymphs (auto) 1.60, Nucleated RBC % 0, Sodium 129 L, Potassium 5.0, Chloride 96 L, Carbon Dioxide 23.0, Anion Gap 10, BUN 34 H, Creatinine 1.69 H, Estim Creat Clear Calc 20.75, Est GFR (MDRD) Af Amer 37 L, Est GFR (MDRD) Non-Af 31 L, BUN/Creatinine Ratio 20.1 H, Glucose 156 H, Calcium 9.6, Troponin I High Sens 40 02/24/23 05:00: WBC 4.1 L, RBC 4.42, Hgb 14.0, Hct 42.5, MCV 96.2, MCH 31.7, MCHC 32.9, RDW Std Deviation 48.5 H, RDW Coeff of Sharad 13.7, Plt Count 167, MPV 10.1, Immature Gran % (Auto) 0.200, Neut % (Auto) 42.1 L, Lymph % (Auto) 41.1 H, Leslie % (Auto) 15.1 H, Eos % (Auto) 1.0, Baso % (Auto) 0.5, Absolute Neuts (auto) 1.7 L, Absolute Lymphs (auto) 1.69, Nucleated RBC % 0, Sodium Cancelled, Potassium Cancelled, Chloride Cancelled, Carbon Dioxide Cancelled, Anion Gap Cancelled, BUN Cancelled, Creatinine Cancelled, Estim Creat Clear Calc Cancelled, Est GFR (MDRD) Af Amer Cancelled, Est GFR (MDRD) Non-Af Cancelled, BUN/Creatinine Ratio Cancelled, Glucose Cancelled, Calcium Cancelled, Magnesium Cancelled, TSH Cancelled 02/24/23 05:53: Sodium 137, Potassium 4.3, Chloride 107, Carbon Dioxide 26.0, Anion Gap 4 L, BUN 23 H, Creatinine 0.99, Estim Creat Clear Calc 36.70, Est GFR (MDRD) Af Amer 68, Est GFR (MDRD) Non-Af 56 L, BUN/Creatinine Ratio 23.1 H, Glucose 94, Calcium 8.2 L, Magnesium 1.8, TSH 5.58 H Rhythm Strip Rhythm Strip: 3rd deg HB Rate: 38 Ectopy: None Cardiology Labs/Tests 02/23/23 17:07: WBC 8.0, RBC 5.03, Hgb 15.8 H, Hct 48.2 H, MCV 95.8, MCH 31.4, MCHC 32.8, Plt Count 239, MPV 10.4, Immature Gran % (Auto) 0.500, Neut % (Auto) 68.3, Lymph % (Auto) 20.1, Leslie % (Auto) 10.2 H, Eos % (Auto) 0.4, Baso % (Auto) 0.5, Absolute Neuts (auto) 5.5, Nucleated RBC % 0, Sodium 129 L, Potassium 5.0, Chloride 96 L, Carbon Dioxide 23.0, Anion Gap 10, BUN 34 H, Creatinine 1.69 H, Est GFR (MDRD) Af Amer 37 L, Est GFR (MDRD) Non-Af 31 L, BUN/Creatinine Ratio 20.1 H, Glucose 156 H, Calcium 9.6 02/24/23 05:00: WBC 4.1 L, RBC 4.42, Hgb 14.0, Hct 42.5, MCV 96.2, MCH 31.7, MCHC 32.9, Plt Count 167, MPV 10.1, Immature Gran % (Auto) 0.200, Neut % (Auto) 42.1 L, Lymph % (Auto) 41.1 H, Leslie % (Auto) 15.1 H, Eos % (Auto) 1.0, Baso % (Auto) 0.5, Absolute Neuts (auto) 1.7 L, Nucleated RBC % 0, Sodium Cancelled, Potassium Cancelled, Chloride Cancelled, Carbon Dioxide Cancelled, Anion Gap Cancelled, BUN Cancelled, Creatinine Cancelled, Est GFR (MDRD) Af Amer Cancelled, Est GFR (MDRD) Non-Af Cancelled, BUN/Creatinine Ratio Cancelled, Glucose Cancelled, Calcium Cancelled, Magnesium Cancelled 02/24/23 05:53: Sodium 137, Potassium 4.3, Chloride 107, Carbon Dioxide 26.0, Anion Gap 4 L, BUN 23 H, Creatinine 0.99, Est GFR (MDRD) Af Amer 68, Est GFR (MDRD) Non-Af 56 L, BUN/Creatinine Ratio 23.1 H, Glucose 94, Calcium 8.2 L, Magnesium 1.8 Rhythm: EKG: ECHO: Stress Test: Cardiac Cath: PCI: CT Surgery: Holter monitor: EPS: PPM: CXR: Chest CT Scan: Radiography Diagnostic Testing: Radiology Impression Chest X-Ray 02/23/23 17:45 IMPRESSION: Tiny residual right pleural effusion. No focal infiltration Electronically Signed: Keyur Farrell MD at 18:13 EDT ,
--- NOTE | 2023-02-24 13:25 | CL.IE_ITS ---
Patient: ROBERTO RASMUSSEN Study Date: 02/24/2023 Performing: Elias Arevalo MD : 1935 Age: 87 Gender: female PROCEDURES PERFORMED [id number])INITIAL PACER INSERT+DUAL LEADS INDICATIONS Atrial fibrillation and complete heart block PROCEDURE DETAILS The patient was brought to the Catheterization Lab in the postabsorptive nonsedated state. Informed consent was obtained prior to the procedure. Local anesthetic was given subcutaneously to the left upper chest area with Lidocaine 2%. Access was achieved and a guidewire was advanced into the left subclavian vein. Incision was made to the left upper chest. A peel-away sheath was inserted into the left subclavian vein. PPM ventricular lead was inserted / positioned to right ventricular. The sheath was then removed. PPM ventricular lead testing performed. PPM ventricular lead testing performed. A peel-away sheath was inserted into the left subclavian vein. PPM atrial lead was inserted / positioned to the right atrial appendage. The sheath was then removed. PPM atrial lead testing performed. PPM atrial lead was repositioned and checked. The Ventricular PM lead sutured in place with 3-0 Silk. The Atrial lead sutured in place with 3-0 Silk. Device pocket was irrigated with antibiotic. PPM generator was attached to the lead(s) and inserted into the pocket. Steri-strips applied to left subclavicular incision. Instrument, sponge, and needle counts were noted to be normal. The patient tolerated the procedure well. Estimated Blood Loss: < 10 mls IMPLANTED / EX-PLANTED DEVICES IMPLANTED DEVICE(S): PPM Ventricular lead - Layout Technician: [employer], Model # 2088TC , Serial # [id number] PPM Atrial lead - Layout Technician: [employer], Model # 2088TC , Serial # [id number] PPM Generator - Layout Technician: [employer], Model # [id number] , Serial # [id number] DEVICE PARAMETERS ATRIAL LEAD PARAMETERS: P wave- 0.5 (mV) impedence- 465 (OHMS) threshold- afl (V) VENTRICULAR LEAD PARAMETERS: R wave- 5.7 (mV) threshold- 1.2 (V) impedence- 650 (OHMS) DEVICE PARAMETERS: Mode- DDD Lower rate- 60 Upper rate- 120 CONCLUSIONS / RECOMMENDATIONS Device Conclusions: Successful implantation of a dual chamber pacemaker Device Recommendations: Follow up with Primary Care Physician PROCEDURE MEDICATIONS Versed 1 mg IV Fentanyl 50 mcg IV Versed 1 mg IV Oxygen: 2 L/min via nasal cannula Antibiotic given in appropriate timeframe. Ancef 1 Gm IV @ 02/24/2023 11:44:08 Signed By Elias Arevalo MD On 02/24/2023 13:24:26 Elias Arevalo MD
--- NOTE | 2023-02-24 14:00 | CASEMGMT ---
RN CM Face to Face with patient for initial transition planning/care coordination assessment. RN CM introduced self and role at [facility]. Patient lying in bed, alert and oriented, daughter and DIL at bedside. Patient willing to participate in assessment and is able to answer all questions appropriately. Care providers, pharmacy, and demographics verified. Patient wishes to discharge home, denies need for home health at this time. Patient states she has no further needs or concerns at this time. CM to follow for discharge planning needs that may arise. PCP: Rafael Specialists: Irina, process line operator; [place] railway signalling engineer; [facility]erred Pharmacy: [facility] Insurance: [employer] Prescription Benefit: yes Living Will/HPOA: yes, daughter Maya Finch LNOK: daughter, KUSHAL Living Arrangements: Patient lives alone in a 2 story home with railing to 2nd story. Patient is independent and able to ambulate stairs. Transportation: self, daughter DME/HHC: Patient has shower chair, BSC, cane, walker, wheelchair at home. No previous HHC or SNF. Disposition Plan: Patient to discharge home with family support and follow-up plans in place. Francesca GONZALESN, RN, CM
[2023-02-24] MEDS: 0.9% Normal Saline (1000mL) 1,000 ML 75 ML IV (14:02)
[2023-02-24] MEDS: Ranolazine 500 MG Tablet PO ×2 (14:04→20:30)
[2023-02-24] MEDS: Acetaminophen 500 MG Tablet 1000 MG PO ×2 (14:04→20:30)
[2023-02-24] MEDS: Folic Acid 1 MG Tablet PO (14:04)
[2023-02-24] MEDS: Calcium Carbonate 500 MG Tablet 1000 MG PO (14:04)
[2023-02-24] MEDS: Mirtazapine 15 MG Tablet PO (14:04)
[2023-02-25 03:00] VITALS: BP 107/61; PULSE 84; RESP 18; TEMP 36.7; O2SAT 96
[2023-02-25 05:07] VITALS: BMI 20.7
[2023-02-25] MEDS: Levothyroxine 75 MCG Tablet PO (05:10)
--- NOTE | 2023-02-25 05:35 | RAD_ITS ---
STUDY: X-RAY CHEST REASON FOR EXAM: Female, 87 years old. Post permanant ICD/Pacemaker -- inspiration/expiration. Arms Down. Wet read to MD TECHNIQUE: PA and lateral views of the chest. COMPARISON: 02/23/2023 FINDINGS: Interval placement of left subclavian pacemaker with no pneumothorax. Left internal jugular chest port which is unchanged. The lungs are clear and expanded. Small bilateral pleural effusions. There is moderate cardiac enlargement. Normal mediastinum and jessica. Normal visualized pulmonary arteries. Normal visualized aortic arch and descending thoracic aorta. Normal visualized thoracic spine. Normal visualized ribs, clavicles, and shoulders. There is no demonstrated abnormality of the visualized soft tissue structures of the upper abdomen. RAD/Chest PA and Lateral IMPRESSION: 1. Interval placement of left subclavian pacemaker with no pneumothorax. 2. Small bilateral pleural effusions. 3. Cardiomegaly. Electronically Signed: Feroz Heller MD at 18:50 EDT ,
--- NOTE | 2023-02-25 07:11 | PCM.PN.HOSP ---
Reason for Visit Reason for Visit: Diagnoses Hypo-osmolality and hyponatremia (02/23/23) Atherosclerotic heart disease of [place] coronary artery without angina pectoris (02/23/23) Other cardiomyopathies (02/23/23) Atrioventricular block, complete (02/23/23) Paroxysmal atrial fibrillation (02/23/23) Acute kidney failure, unspecified (02/23/23) Subjective Subjective Feels well. No events. Objective Data Objective Data Vital Signs: Vital Signs Temp Pulse Resp BP Pulse Ox O2 Del Method O2 Flow Rate 36.7 C 84 18 107/61 96 Room Air 3 02/25/23 03:00 02/25/23 03:00 02/25/23 03:00 02/25/23 03:00 02/25/23 03:00 02/25/23 03:00 02/23/23 20:00 Oxygen Flow Rate (L/min) 3 Oxygen Delivery Method Room Air Weight: 56.608 kg Body Mass Index (BMI) 20.7 Intake & Output: Intake and Output for Last 24 Hours 02/23/23 02/24/23 02/25/23 23:59 23:59 23:59 Intake Total 907 / 907 1050 / 1050 1000 / 1000 Output Total 300 / 300 400 / 400 600 / 600 Balance 607 / 607 650 / 650 400 / 400 Lab / Micro Data 02/24/23 05:00 02/24/23 05:53 Rhythm Strip Rhythm Strip: 3rd deg HB Rate: 38 Ectopy: None Physical Exam Const alert and no apparent distress HEENT head/scalp atraumatic and moist oral mucous membranes Resp normal respiratory effort, no retractions, no use of accessory muscles and clear to auscultation bilaterally Cardio regular rate, regular rhythm, S1 normal heart sound and S2 normal heart sound GI normal to inspection, nondistended, normoactive bowel sounds, soft to palpation, non-tender and non-distended Assessment & Plan Assessment/Plan (1) Complete heart block: PLAN: Review of labs shows potassium of 5.0. Check magnesium. Hold amiodarone and metoprolol. Hold Eliquis. Cardiology consult. PPM placed today with atrial and vetricular leads. (2) ASHLI (acute kidney injury): PLAN: Resolved: ASHLI on CKD stage IIIa Likely secondary to dehydration and hypovolemia. (3) Hyponatremia: PLAN: Sodium on presentation was 129. BUN is 34. Patient has dry mucous membrane. Patient is on diuretics. Likely secondary to dehydration and hypovolemia. Hold home diuretics. Gentle IV hydration. Trend BMP. Cautious use of IV fluids as patient reports of having arthrocentesis a day before presentation. She also reports having in the past before the current one PLAN: Plan Chronic conditions: Paroxysmal A-fib/a flutter: Holding home Eliquis secondary to patient being a candidate of pacemaker. DVT prophylaxis: scds until apixaban can be resumed. Disposition: ok for discharge per cardiology.
--- NOTE | 2023-02-25 08:11 | DS.PCM_ITS ---
Providers Date of Admission: 02/23/23 Primary Care Physician: Dr. Teagan Hall MD Consultations 02/23/23 22:24 Consult: Cardiology Routine Consulting Provider: Jesi Dunham Reason for Consult: Complete EMERGENT Consult: No MD Notified: Yes Date Notified: 02/23/23 Time Notified: 19:42 Method of Notification: ED Physician Initiated Method of Consult:: In-Person Reason For Visit: COMPLETE HEART BLOCK Diagnosis Discharge Diagnosis (1) Complete heart block: Status: Acute Code(s): I44.2 - Atrioventricular block, complete Plan: Review of labs shows potassium of 5.0. Check magnesium. Hold amiodarone and metoprolol. Hold Eliquis. Cardiology consult. PPM placed 02/24 with atrial and ventricular leads. (2) ASLHI (acute kidney injury): Status: Acute Code(s): N17.9 - Acute kidney failure, unspecified Plan: Resolved: ASHLI on CKD stage IIIa Likely secondary to dehydration and hypovolemia. (3) Hyponatremia: Status: Acute Code(s): E87.1 - Hypo-osmolality and hyponatremia Plan: Sodium on presentation was 129. BUN is 34. Patient has dry mucous membrane. Patient is on diuretics. Likely secondary to dehydration and hypovolemia. Hold home diuretics. Gentle IV hydration. Trend BMP. Cautious use of IV fluids as patient reports of having arthrocentesis a day before presentation. She also reports having in the past before the current one Plan Chronic conditions: * Paroxysmal A-fib/a flutter: Holding home Eliquis secondary to patient being a candidate of pacemaker. DVT prophylaxis: scds until apixaban can be resumed. Disposition: ok for discharge per cardiology. Medications at Discharge Home Medications calcium carbonate 200 mg calcium (500 mg) chewable tablet 1,000 mg PO DAILY@0800 indigestion 10/26/18 abatacept 50 mg/0.4 mL subcutaneous syringe 750 mg IV QMONTH arthritis 12/13/19 acetaminophen 500 mg tablet 1,000 mg PO BID pain 04/12/20 aspirin 81 mg tablet,delayed release 81 mg PO DAILY@0800 heart 05/16/20 folic acid 1 mg tablet 1 mg PO BID supplement 05/23/20 methotrexate sodium 2.5 mg tablet 15 mg PO BRENNER arthritis 05/23/20 leucovorin calcium 15 mg tablet 15 mg PO QWEEK 09/25/20 levothyroxine 75 mcg tablet 75 mcg PO DAILY thyroid 12/12/21 apixaban 2.5 mg tablet (Eliquis) 2.5 mg PO BID #180 tabs 02/04/23 lorazepam 0.5 mg tablet 0.25 mg PO QHS PRN anxiety 02/04/23 mirtazapine 15 mg tablet 15 mg PO DAILY 02/04/23 ranolazine 500 mg tablet,extended release,12 hr (Ranexa) 500 mg PO BID #60 tabs 02/04/23 Weight / BMI Weight Weight: 56.608 kg Body Mass Index (BMI) 20.7 ABG / Lab / Microbiology Data 02/24/23 05:00 02/24/23 05:53 D/C Instructions Discharge Diet: No restrictions Weight Bearing Status: No weight bearing (left upper extemity. ) Call your doctor if your incision/area has: Continuous Slow Oozing, Sudden Increased Bleeding, Increased Redness and Foul Smelling Discharge Call your doctor if you observe: Fainting spells and Increased palpitations (irregular heartbeat) Meaningful Use Info Meaningful Use Diagnoses (Choose all that apply): None applicable Discharge Plan Admission Admit Date/Time: 02/23/23 19:34 Primary Reason for Your Visit: heart block. Attending Provider: Michael Sinclair Primary Care Provider: Teagan Hall Consulting Providers: Matteo Anderson; Jesi Dunham Discharge Orders/Prescriptions Prescriptions: Continued folic acid 1 mg tablet 1 mg PO BID mirtazapine 15 mg tablet 15 mg PO DAILY lorazepam 0.5 mg tablet 0.25 mg PO QHS PRN (Reason: anxiety) ranolazine [Ranexa] 500 mg tablet extended release 12 hr 500 mg PO BID Qty: 60 11RF calcium carbonate 500 MG tablet 1,000 mg PO DAILY@0800 abatacept 50 MG/0.4 ML syringe 750 mg IV QMONTH Rx Instructions: every 4 weeks methotrexate sodium 2.5 mg tablet 15 mg PO BRENNER Rx Instructions: on Sundays acetaminophen 500 MG tablet 1,000 mg PO BID aspirin 81 MG tablet 81 mg PO DAILY@0800 levothyroxine 75 mcg Tablet 75 mcg PO DAILY leucovorin calcium 15 mg tablet 15 mg PO QWEEK Held Eliquis 2.5 mg tablet 2.5 mg PO BID Qty: 180 3RF Hold Instructions: Resume on 02/28/23. Discontinued amiodarone 200 mg tablet 200 mg PO DAILY Qty: 90 3RF furosemide [Lasix] 40 mg tablet 40 mg PO BID Qty: 180 3RF metoprolol tartrate 50 mg tablet 25 mg PO BID Referrals / Follow Up: Teagan Hall MD [Primary Care Provider] - Within 2 Weeks [facility] [Provider Group] - Within 2 Weeks Charges/Coding Visit Charges Inpatient E&M: 11737 Disch Hosp
--- NOTE | 2023-02-25 08:26 | PN.CARD_ITS ---
Subjective Subjective Patient seen and evaluated. Appears to be doing well. Objective Data Vital Signs: Vital Signs Temp Pulse Resp BP Pulse Ox O2 Del Method O2 Flow Rate 98.0 F 84 18 107/61 96 Room Air 3 02/25/23 03:00 02/25/23 03:00 02/25/23 03:00 02/25/23 03:00 02/25/23 03:00 02/25/23 03:00 02/23/23 20:00 Oxygen Flow Rate (L/min) 3 Oxygen Delivery Method Room Air Weight: 124 lb 12.8 oz Body Mass Index (BMI) 20.7 Intake & Output: Intake and Output for Last 24 Hours 02/23/23 02/24/23 02/25/23 23:59 23:59 23:59 Intake Total 907 / 907 1050 / 1050 1000 / 1000 Output Total 300 / 300 400 / 400 600 / 600 Balance 607 / 607 650 / 650 400 / 400 Lab / Micro Data 02/24/23 05:00 02/24/23 05:53 Rhythm Strip Rhythm Strip: 3rd deg HB Rate: 38 Ectopy: None Cardiology Labs/Tests Rhythm: EKG: ECHO: Stress Test: Cardiac Cath: PCI: CT Surgery: Holter monitor: EPS: PPM: CXR: Chest CT Scan: Physical Exam Const alert and no apparent distress HEENT head/scalp atraumatic and moist oral mucous membranes Resp normal respiratory effort, no retractions, no use of accessory muscles and clear to auscultation bilaterally Cardio regular rate, regular rhythm, S1 normal heart sound and S2 normal heart sound GI normal to inspection, nondistended, normoactive bowel sounds, soft to palpation, non-tender and non-distended Assessment & Plan Assessment/Plan (1) Complete heart block: PLAN: She presents with atrial fibrillation with complete heart block. She und erwent placement of a permanent pacemaker, pacemaker interrogation today demonstrates normal function. Chest x-ray unofficially looks great. Patient will be discharged on her beta-kemal. (2) AF (paroxysmal atrial fibrillation): PLAN: She does have atrial fibrillation which has been paroxysmal and tending towards persistent. My recommendation will be for her to continue the current anticoagulation after she has the permanent pacemaker implanted. We will restart amiodarone after office visit and anticoagulation. (3) Nonischemic cardiomyopathy: PLAN: She does have a mild cardiomyopathy which I suspect is ischemic from her previous coronary artery disease. We will recommend optimization of medical therapy with beta-kemal and SAMARA inhibitor./ (4) Atherosclerosis of coronary artery of [place] heart without angina pectoris: QUALIFIERS: Coronary Disease-Associated Artery/Lesion type: [place] artery Qualified Code(s): I25.10 - Atherosclerotic heart disease of [place] coronary artery without angina pectoris PLAN: She has evidence of atherosclerotic cardiovascular disease. The plan be to continue the current medical therapy.
--- NOTE | 2023-02-25 08:32 | DCINST_ITS ---
Discharge Instructions Diet Discharge Diet: No restrictions Activity Discharge Activity: May Not Drive May shower in (days): 2 Weight Bearing Status: No weight bearing (left upper extemity. ) Additional Activity Instructions:: May shower or bathe on [day 3]. Do not scrub the incision or soak in the tub. Just wash with soap and let the water run over the incision. Gently pat dry with towel. Medications: Take your pain medication as directed. Refer to your discharge instruction sheet for a list of medications you are to take. Dressing / Incision Call your doctor if your incision/area has: Continuous Slow Oozing, Sudden Increased Bleeding, Increased Redness and Foul Smelling Discharge Call your doctor if you observe: Fainting spells and Increased palpitations (irregular heartbeat) Suture Line Care: Avoid Pulling/Pushing and Avoid Pinching/Bending Remove Dressing in: 3 days Cleanse incision/area with: Keep Dressing Clean & Dry Additional Dressing/Incision Instructions:: When dressing is removed, wash and dry incision. Keep covered with a light bandage if it is rubbing against your clothing. Do not cover the incision with an airtight bandage. Change the bandage daily. Do not remove steri strips. The strips will fall off on their own. Follow Up Care Please Follow Up With: Elias Arevalo MD When: Pacer follow-up on March 04 at 11 AM Test Results: Test results from this visit will be discussed in further detail at your follow- up appointment, if applicable. Discharge Plan Admission Admit Date/Time: 02/23/23 19:34 Primary Reason for Your Visit: heart block. Attending Provider: Michael Sinclair Primary Care Provider: Teagan Hall Consulting Providers: Matteo Anderson; Jesi Dunham Discharge Orders/Prescriptions Prescriptions: Continued folic acid 1 mg tablet 1 mg PO BID mirtazapine 15 mg tablet 15 mg PO DAILY lorazepam 0.5 mg tablet 0.25 mg PO QHS PRN (Reason: anxiety) ranolazine [Ranexa] 500 mg tablet extended release 12 hr 500 mg PO BID Qty: 60 11RF calcium carbonate 500 MG tablet 1,000 mg PO DAILY@0800 abatacept 50 MG/0.4 ML syringe 750 mg IV QMONTH Rx Instructions: every 4 weeks methotrexate sodium 2.5 mg tablet 15 mg PO BRENNER Rx Instructions: on Sundays acetaminophen 500 MG tablet 1,000 mg PO BID aspirin 81 MG tablet 81 mg PO DAILY@0800 levothyroxine 75 mcg Tablet 75 mcg PO DAILY leucovorin calcium 15 mg tablet 15 mg PO QWEEK Held Eliquis 2.5 mg tablet 2.5 mg PO BID Qty: 180 3RF Hold Instructions: Resume on 02/28/23. Discontinued amiodarone 200 mg tablet 200 mg PO DAILY Qty: 90 3RF furosemide [Lasix] 40 mg tablet 40 mg PO BID Qty: 180 3RF metoprolol tartrate 50 mg tablet 25 mg PO BID Referrals / Follow Up: [facility] [Provider Group] - Within 2 Weeks Teagan Hall MD [Primary Care Provider] - Within 2 Weeks
[2023-02-25 09:12] VITALS: BP 128/65; PULSE 92; RESP 20; TEMP 36.3; O2SAT 92
[2023-02-25] MEDS: Ranolazine 500 MG Tablet PO (09:14)
[2023-02-25] MEDS: Folic Acid 1 MG Tablet PO (09:14)
[2023-02-25] MEDS: Calcium Carbonate 500 MG Tablet 1000 MG PO (09:15)
[2023-02-25] MEDS: Aspirin E.C. 81 MG Tablet PO (09:15)
[2023-02-25] MEDS: Mirtazapine 15 MG Tablet PO (09:15)
[2023-02-25 09:18] VITALS: BP 128/65; PULSE 95
[2023-02-25] MEDS: Metoprolol Tartrate 25 MG Tablet PO (09:18)
[2023-02-25] MEDS: Acetaminophen 500 MG Tablet 1000 MG PO (09:22)
== END 2023-02-25 11:26 | disposition home or self-care (01) | DRG 243 ==
LOC: ED 19:19 → ICU 20:06
PROVIDERS: Admitting Provider Hospitalist; Emergency Provider Emergency Medicine; PCP Family Medicine
DX: I44.2 Atrioventricular block, complete (principal); E87.1 Hypo-osmolality and hyponatremia; N17.9 Acute kidney failure, unspecified; I42.8 Other cardiomyopathies; J90 Pleural effusion, not elsewhere classified; N18.31 Chronic kidney disease, stage 3a; J44.9 Chronic obstructive pulmonary disease, unspecified; I48.0 Paroxysmal atrial fibrillation; I48.92 Unspecified atrial flutter; I12.9 Hypertensive chronic kidney disease with stage 1 through stage 4 chronic kidney disease, or unspecified chronic kidney disease; E86.1 Hypovolemia; I25.10 Atherosclerotic heart disease of native coronary artery without angina pectoris; E78.5 Hyperlipidemia, unspecified; I25.2 Old myocardial infarction; Z95.5 Presence of coronary angioplasty implant and graft; Z90.11 Acquired absence of right breast and nipple; Z79.02 Long term (current) use of antithrombotics/antiplatelets; Z79.82 Long term (current) use of aspirin; Z79.01 Long term (current) use of anticoagulants; Z79.899 Other long term (current) drug therapy; Z85.3 Personal history of malignant neoplasm of breast
CPT/HCPCS: 32555; 33208; 71045; 71046; 80048; 83735; 84443; 84484; 85025; 93005; 97802; 99152; 99153; 99285; J7030; J7040; J7050; A4216; C1894

== ENCOUNTER 2023-03-17 10:46 | Outpatient (CLI) | payer MEDICARE, SELFPAY ==
[2020-06-07 08:50] VITALS: BMI 19.4
[2023-03-17 11:08] VITALS: BP 114/58; PULSE 97; RESP 16; TEMP 36.2; O2SAT 95; BMI 20.5
[2023-03-17] MEDS: 0.9% NaCl IVPB Med Flush (250 mL) 15 ML IV (11:38)
[2023-03-17] MEDS: 0.9% NaCl Peripheral Flush Adult/Peds IV (11:38)
[2023-03-17] MEDS: ABATACEPT IV (11:38)
[2023-03-17] MEDS: NORMAL SALINE 0.9% IV (11:38)
[2023-03-17 12:34] VITALS: BP 117/66; PULSE 96; RESP 16
== END 2023-03-17 10:47 | disposition home or self-care (01) ==
LOC: MEDOUTP 10:46
PROVIDERS: PCP Family Medicine; Referring Provider Internal Medicine Rheumatology; Visit Provider Internal Medicine Rheumatology
DX: M05.70 Rheumatoid arthritis with rheumatoid factor of unspecified site without organ or systems involvement (principal)
CPT/HCPCS: 96365; J7050; A4216; J0129

== ENCOUNTER → 2023-03-29 | Outpatient (CLI) | payer MEDICARE, SELFPAY ==
[2020-06-07 08:50] VITALS: BMI 19.4
[2023-03-29 11:12] LABS: Absolute Lymphocyte Count 1.08 X10^3/uL (0.83-4.51); Absolute Neutrophil Count 3.3 X10^3/uL (2.0-7.7); Basophil# 0.04 X10^3/uL; Basophil% 0.8 % (0-1); Eosinophil# 0.05 X10^3/uL; Hematocrit 47.1 % (37-47); Hemoglobin 15.1 g/dL (12.0-15.0); Lymphocyte # 1.08 X10^3/ul (0.83-4.51); Lymphocyte % 21.3 % (19-41); Mean Corp Hgb Conc 32.1 g/dL (32-36); Mean Corpuscular Hgb 30.8 pg (27.0-32.0); Mean Corpuscular Volume 95.9 fL (81-99); Mean Platelet Vol. 10.1 fl (6.2-12.0); Monocyte# 0.57 X10^3/uL; Monocyte% 11.2 % (0-10); NRBC Flagged by Analyzer 0 % (0-5); Neutrophil # 3.31 X10^3/uL (2.7-7.7); Neutrophil % 65.3 % (47-70); Platelet Count 200 K/mm3 (150-450); RBC Distribution Width CV 15.2 % (11.6-14.6); RBC Distribution Width SD 52.9 fl (35.1-43.9); Red Blood Count 4.91 M/mm3 (4.2-5.4); White Blood Count 5.1 K/mm3 (4.4-11.0)
[2023-03-29 11:40] LABS: ALB/GLOB Ratio 0.9 RATIO (0.9-2.4); AST(SGOT) 23 U/L (15-37); Alanine Aminotransfer ALT/SGPT 28 U/L (13-56); Albumin, Serum 3.4 g/dL (3.2-5.0); Alkaline Phosphatase 69 U/L (45-117); Anion Gap 7 (5-15); BUN 20 mg/dL (7-18); BUN/Creat Ratio 19.2 RATIO (10-20); Calcium,Total 9.2 mg/dL (8.5-10.1); Chloride 103 mmol/L (98-107); Creatinine, Serum 1.04 mg/dL (0.55-1.02); EST Glomerular Filtration Rate 53 mL/min (>60); Est Glom Filt Rate - Afr Amer 65 mL/min (>60); Globulin 3.8 g/dL (2.2-4.2); Glucose 88 mg/dL (74-106); Potassium 3.6 mmol/L (3.5-5.1); Protein, Total 7.2 g/dL (6.4-8.2); Sodium Level 137 mmol/L (136-145); Thyroid Stim Hormone (TSH) 4.82 uIU/mL (0.358-3.74)
== END | disposition home or self-care (01) ==
LOC: PAVLAB 10:54
PROVIDERS: PCP Family Medicine; Referring Provider Nurse Practitioner Gerontology; Visit Provider Nurse Practitioner Gerontology
DX: M05.70 Rheumatoid arthritis with rheumatoid factor of unspecified site without organ or systems involvement (principal); Z79.899 Other long term (current) drug therapy
CPT/HCPCS: 36415; 80053; 84443; 85025

== ENCOUNTER → 2023-04-05 | Outpatient (CLI) | payer MEDICARE, SELFPAY ==
[2020-06-07 08:50] VITALS: BMI 19.4
--- NOTE | 2023-04-05 10:26 | RAD_ITS ---
STUDY: X-RAY CHEST REASON FOR EXAM: Female, 87 years old. dyspnea TECHNIQUE: PA and lateral views of the chest. COMPARISON: 02/25/2023 FINDINGS: Left subclavian pacemaker which is unchanged. Left internal jugular chest port which is unchanged. The lungs are clear and expanded. Moderate right sided pleural effusion with right lower lobe atelectasis. Small left pleural effusion. There is moderate cardiac enlargement. Normal mediastinum and jessica. Normal visualized pulmonary arteries. Normal visualized aortic arch and descending thoracic aorta. Normal visualized thoracic spine. Normal visualized ribs, clavicles, and shoulders. There is no demonstrated abnormality of the visualized soft tissue structures of the upper abdomen. RAD/Chest PA and Lateral IMPRESSION: 1. Moderate right pleural effusion with right lower lobe atelectasis. 2. Small left pleural effusion. 3. Cardiomegaly. Electronically Signed: Feroz Heller MD at 21:39 EST ,
== END | disposition home or self-care (01) ==
LOC: MTLAB 10:24
PROVIDERS: PCP Family Medicine; Referring Provider Family Medicine; Visit Provider Family Medicine
DX: R06.09 Other forms of dyspnea (principal)
CPT/HCPCS: 71046

== ENCOUNTER → 2023-04-07 | Outpatient (CLI) | payer MEDICARE, SELFPAY ==
[2020-06-07 08:50] VITALS: BMI 19.4
[2023-04-07 18:14] LABS: ALB/GLOB Ratio 1.1 RATIO (0.9-2.4); Globulin 3.5 g/dL (2.2-4.2); LDH 294 U/L (84-246); Protein, Total 7.3 g/dL (6.4-8.2)
== END | disposition home or self-care (01) ==
LOC: MTLAB 14:34
PROVIDERS: PCP Family Medicine; Referring Provider Physician Assistant Medical; Visit Provider Physician Assistant Medical
DX: J90 Pleural effusion, not elsewhere classified (principal)
CPT/HCPCS: 36415; 83615; 84156

== ENCOUNTER → 2023-04-08 | Outpatient (CLI) | payer MEDICARE, SELFPAY ==
[2020-06-07 08:50] VITALS: BMI 19.4
--- NOTE | 2023-04-08 13:11 | US_ITS ---
PROCEDURE: ULTRASOUND GUIDED THORACENTESIS. DATE: April 08, 2023. INDICATION: Female, 87 years old. Right pleural effusion PHYSICIAN: Aneudy Cardenas M.D. PROCEDURE: The risks, benefits, and alternatives to the procedure were explained to the patient. The specific risks of bleeding, infection, and pneumothorax requiring chest tube insertion were discussed and accepted. Written informed consent was obtained. Ultrasonographic evaluation of the right lower pleural space was carried out. An adequate pocket was identified. The patient was placed in the sitting, upright position. The overlying skin was prepped and draped in sterile fashion. 1% lidocaine was administered subcutaneously for local anesthesia. Under ultrasound guidance, a 5 Croatian thoracentesis needle/catheter system was advanced into the right posterior lower pleural fluid collection. Approximately 1020 mL of nichole-colored fluid was drained. The catheter was removed, and a sterile dressing was applied. The patient tolerated the procedure well. A chest x-ray was ordered. US/Thoracentesis W US IMPRESSION: Ultrasound-guided right thoracentesis. Electronically Signed: Aneudy Cardenas MD at 14:11 EST ,
--- NOTE | 2023-04-08 13:11 | ECHOD_ITS ---
Reason For Study: Afib/Flutter Procedure This was a 2D Doppler, Color Flow transthoracic echocardiogram. Exam performed in department. Left Ventricle Normal LV size. The estimated ejection fraction is 35 %. Stage 3 diastolic dysfunction. There is moderate global hypokinesis of the left ventricle. Right Ventricle Normal RV size. ICD or pacer leads identified within the right ventricle. Normal systolic function. Atria The left atrium is mildly enlarged. The right atrium is moderately enlarged. Mitral Valve Normal mitral valve. Mild (1+) eccentric mitral valve insufficiency. Tricuspid Valve Normal tricuspid valve. Mild tricuspid valve insufficiency. Aortic Valve The aortic valve is not well visualized. Pulmonic Valve Normal pulmonic valve. Great Vessels Normal aortic root. The pulmonary artery is normal size. Normal inferior vena cava. Pericardium/Pleural No pericardial effusion. MMode/2D Measurements & Calculations LVIDd: 4.6 cm IVSd: 1.0 cm Ao root diam: 3.0 cm LVIDs: 3.9 cm LVPWd: 1.0 cm LA dimension: 4.5 cm RVDd: 3.2 cm FS: 15.5 % LAV(MOD-bp): 100.5 ml LVAd ap4: 18.8 cm2 SV(MOD-sp4): 17.2 ml LAV(MOD-bp) Indexed: 63.1 ml/m2 LVLd ap4: 5.9 cm LAV(MOD-sp2): 95.6 ml EDV(MOD-sp4): 50.1 ml LAV(MOD-sp4): 97.4 ml EDV(sp4-el): 50.7 ml LVAs ap4: 14.9 cm2 LVLs ap4: 5.7 cm ESV(MOD-sp4): 32.9 ml ESV(sp4-el): 33.2 ml EF(MOD-sp4): 34.4 % EF(sp4-el): 34.6 % SV(sp4-el): 17.5 ml LA A4 area: 27.4 cm2 RA A4 area: 24.1 cm2 Time Measurements MV dec time: 0.20 sec Doppler Measurements & Calculations MV E max salbador: 72.9 cm/sec Lat Peak E' Salbador: 9.1 cm/sec Med Peak E' Salbador: 5.4 cm/sec MV A max salbador: 21.9 cm/sec E/E' lat: 8.0 E/E' med: 13.5 MV E/A: 3.3 MV V2 max: 86.8 cm/sec MV P1/2t max salbador: 87.3 cm/sec Ao V2 max: 138.5 cm/sec MV max P.0 mmHg MV P1/2t: 81.6 msec Ao max P.7 mmHg MV V2 mean: 44.1 cm/sec Ao V2 mean: 104.8 cm/sec MV mean P.97 mmHg MV dec slope: 313.3 cm/sec2 Ao mean P.9 mmHg MV V2 VTI: 18.3 cm MVA(P1/2t): 2.7 cm2 Ao V2 VTI: 24.2 cm AV (velocity ratio): 0.38 LV V1 max: 54.7 cm/sec MR max salbador: 448.9 cm/sec PA V2 max: 38.6 cm/sec LV V1 max P.2 mmHg MR max P.6 mmHg LV V1 mean P.69 mmHg MR mean salbador: 318.5 cm/sec LV V1 mean: 39.0 cm/sec MR mean P.9 mmHg LV V1 VTI: 9.1 cm MR VTI: 130.5 cm TR max salbador: 210.6 cm/sec TR max P.7 mmHg ECHO/Echo Complete Interpretation Summary Normal LV size. There is moderate global hypokinesis of the left ventricle. The estimated ejection fraction is 35 %. ICD or pacer leads identified within the right ventricle. Stage 3 diastolic dysfunction. Ordering Physician: Holli Gaona Referring Physician: Teagan Hall M.D. Performed By: Bernardo Noel RCS
--- NOTE | 2023-04-08 13:30 | RAD_ITS ---
STUDY: X-RAY CHEST REASON FOR EXAM: Female, 87 years old. Immediately post thoracentesis TECHNIQUE: A PA inspiration and expiration views following a right thoracentesis. COMPARISON: Comparison is made with prior study dated April 05, 2023. FINDINGS: There is no evidence of pneumothorax on the immediate post right thoracentesis images. RAD/Chest Insp/Exp 2 View IMPRESSION: No evidence of pneumothorax following the right thoracentesis. Electronically Signed: Aneudy Cardenas MD at 14:01 EST ,
[2023-04-08 13:33] VITALS: BP 95/43; PULSE 97; RESP 16; O2SAT 98
[2023-04-08] MEDS: Lidocaine 2% (20 ml mdv) 20 ML Vial INFILT (13:39)
[2023-04-08 13:41] VITALS: BP 101/49; PULSE 99; RESP 16; O2SAT 96
[2023-04-08 13:45] VITALS: BP 81/35; PULSE 99; RESP 18; O2SAT 98
[2023-04-08 13:53] VITALS: BP 87/45; PULSE 97; RESP 18; O2SAT 96
== END | disposition home or self-care (01) ==
LOC: US 13:06
PROVIDERS: PCP Family Medicine; Referring Provider Physician Assistant Medical; Visit Provider Physician Assistant Medical
DX: J90 Pleural effusion, not elsewhere classified (principal); I42.8 Other cardiomyopathies; I25.10 Atherosclerotic heart disease of native coronary artery without angina pectoris
CPT/HCPCS: 32555; 71046; 93306

== ENCOUNTER → 2023-05-04 | Outpatient (CLI) | payer MEDICARE, SELFPAY ==
[2020-06-07 08:50] VITALS: BMI 19.4
[2023-05-04 16:11] LABS: Anion Gap 6 (5-15); BUN 38 mg/dL (7-18); BUN/Creat Ratio 35.5 RATIO (10-20); Calcium,Total 9.4 mg/dL (8.5-10.1); Chloride 101 mmol/L (98-107); Creatinine, Serum 1.07 mg/dL (0.55-1.02); EST Glomerular Filtration Rate 52 mL/min (>60); Est Glom Filt Rate - Afr Amer 62 mL/min (>60); Glucose 109 mg/dL (74-106); Potassium 3.7 mmol/L (3.5-5.1); Sodium Level 136 mmol/L (136-145)
--- OUTSIDE RECORDS SUMMARY | 2023-05-04 17:59 | XMS RPT_ITS | CCD ---
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 [place] [address] PCP - General 08/13/00 Services Host Relationship Specialty Start Date End Date Teagan Hall [address] [place] [address] PCP - General 08/13/00 Services Host Relationship Specialty Start Date End Date Teagan Hall [address] [place] [address] PCP - General Family Medicine 09/16/22 Services Host Relationship Specialty Start Date End Date Teagan Hall [address] [place] [address] PCP - General Family Medicine 09/16/22 Services Host Relationship Specialty Start Date End Date Teagan Hall [address] [place] [phone] PCP - General Family Medicine 09/16/22 Services Host Relationship Specialty Start Date End Date Teagan Hall [address] [place] [phone] PCP - General Family Medicine 09/16/22 FOR RECORDS PERTAINING TO PATIENTS WHO ARE OR HAVE BEEN ENROLLED IN A CHEMICAL DEPENDENCY/SUBSTANCEABUSE PROGRAM, SOME INFORMATION MAY BE OMITTED. This clinical summary was aggregated from multiple sources. Caution should be exercised in using it in the provision of clinical care. This summary normalizes information from multiple sources, and as a consequence, information in this document may materially change the coding, format and clinical context of patient data. In addition, data may be omitted in some cases. CLINICAL DECISIONS SHOULD BE BASED ON THE PRIMARY CLINICAL RECORDS. [facility] [employer] [facility]. provides no warranty or guarantee of the accuracy or completeness of information in this document.
== END | disposition home or self-care (01) ==
LOC: PAVLAB 15:27
PROVIDERS: PCP Family Medicine; Referring Provider Nurse Practitioner Gerontology; Visit Provider Nurse Practitioner Gerontology
DX: I48.0 Paroxysmal atrial fibrillation (principal)
CPT/HCPCS: 36415; 80048

== ENCOUNTER → 2023-05-07 | Day surgery (SDC) | payer MEDICARE, SELFPAY ==
[2020-06-07 08:50] VITALS: BMI 19.4
== END | disposition home or self-care (01) ==
PROVIDERS: PCP Family Medicine; Referring Provider Internal Medicine Cardiovascular Disease; Visit Provider Internal Medicine Cardiovascular Disease
DX: I48.92 Unspecified atrial flutter (principal); I48.91 Unspecified atrial fibrillation
CPT/HCPCS: 93005

== ENCOUNTER → 2023-05-11 | Outpatient (CLI) | payer MEDICARE, SELFPAY ==
[2020-06-07 08:50] VITALS: BMI 19.4
--- OUTSIDE RECORDS SUMMARY | 2023-05-11 08:35 | XMS RPT_ITS | CCD ---
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 APRN.DIE OPERATOR Service: Anesthesiology Author Type: Nurse Sliver Chopper Type: Anesthesia Procedure Notes Filed: 05/18/2022 3:54 PM Note Text: ANESTHESIOLOGY PROCEDURE NOTE Airway General Information Procedure Start Time/Medication Administration: 05/18/2022 3:24 PM Patient location during procedure: OR Timeout Performed Pre-procedure: timeout performed Consent Obtained: Yes Patient identity confirmed: arm band and patient Staffing DIE OPERATOR: Deedee Corley APRN.DIE OPERATOR Performed by: MAIDA Indications and Patient Condition Indications for airway management: anesthesia Preoxygenated: yes anesthesia circuit Patient position: sniffing Method: asleep Final Airway Details Final airway type: supraglottic airway Number of attempts at approach: 1 Final Supraglottic Airway: i-gel Size 4 Seal Adequate: yes SIGNATURE: Deedee Corley APRN.CRNA PATIENT NAME: Roberto Ferguson DATE: May 18, 2022 TIME: 3:49 PM CSN: [id number] [facility] documented as of this encounter (statuses as of 06/06/2022) [facility]01-16-2023 History of Past illness Narrative* Problem Noted Date Resolved Date Painful orthopaedic hardware 05/18/2022 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/18/2022 documented as of this encounter (statuses as of 06/09/2022) [facility] History of Past illness Narrative* Problem Noted Date Resolved Date Painful orthopaedic hardware 05/18/2022 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/18/2022 documented as of this encounter (statuses as of 06/19/2022) [facility] History of Past illness Narrative* Problem Noted Date Resolved Date Painful orthopaedic hardware 05/18/2022 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/18/2022 documented as of this encounter (statuses as of 06/29/2022) [facility] History of Past illness Narrative* Problem Noted Date Resolved Date Painful orthopaedic hardware 05/18/2022 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/18/2022 documented as of this encounter (statuses as of 07/19/2022) [facility] History of Past illness Narrative* Problem Noted Date Resolved Date Painful orthopaedic hardware 05/18/2022 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/18/2022 documented as of this encounter (statuses as of 08/17/2022) [address]05-2023 NoteHNO ID: [id number] Author: Blanca Cabral APRN.TRAINING AND DEVELOPMENT PROFESSIONAL Service: Anesthesiology Author Type: Nurse Practitioner Type: Progress Notes Filed: 05/07/2022 12:22 PM Note Text: Summary: PAT Medical clearance has already been requested from Dr. Hall by Dr. Trejo. Left message for Shona at Dr. Trejo's office requesting the clearance be scanned into [employer] once received. Case reviewed with Dr. Boyd, anesthesiologist. No additional clearances requested. Okay to proceed with medical clearance only per Dr. Boyd. Maggie to follow up.[facility]01-03-2023 NoteHNO ID: [id number] Author: Lupis Hunter APRN.TRAINING AND DEVELOPMENT PROFESSIONAL Service: ? Author Type: Nurse Practitioner Type: Progress Notes Filed: 05/05/2022 12:35 PM Note Text: CC AUDIT SENIOR ASSOCIATE Please review and discuss with anesthesia if any additional clearances are needed. Medical clearance has been requested. Pt had an NC 04/2020, she then had a stent placed. [...] 2019, managed by Dr. Shane, last OV [facility]01-03-2023 History and physical note* Lupis Hunter APRN.TRAINING AND DEVELOPMENT PROFESSIONAL - 05/05/2022 10:40 AM EST HISTORY AND [...] Negative for: dysuria, hematuria and renal failure. 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 Taking Yes Vitamin E57-Jhthcwy B1 5.5-12.5 mg-mcg/5 mL Liqd Take 1 tablet by mouth once daily. Taking Yes CALCIUM CARBONATE (CALCIUM 600 ORAL) Take by mouth twice daily. Taking Yes Darling-3 Fatty Acids-Vitamin E 1,000 mg cap Take [...] or any previous visit (from the past 99889 hour(s)). Assessment Cotter Activity Status Index: METS: Take care of self; that is eating, dressing, bathing, using the toilet (2.75 METs) DASI Score: 2.75 (+SOB, denies CP) Patient denies any chest pain or undue shortness of breath with the above physical activity. STOP-Bang Score: STOP-Bang Score: 0 [id number] Score: [id number] Score: 0 ARISCAT Score: Age: >80 Preoperative [...] to get preop instructions from surgeon and stitch bonding machine drawer in. The Following Tests/Procedures Have Been Initiated: No [...] 2:05 PM PAGER/CONTACT #: [facility] Instructions* Patient Instructions* Lupis Hunter APRN.CNP - 04/30/2022 2:01 PM EST PATIENT PREOPERATIVE INSTRUCTIONS Dr. Trejo has scheduled you for your procedure at this surgery center: [facility]: [phone], [address] [id number] Please read below carefully for your personalized [...] surgery. - YOU MUST HAVE A RESPONSIBLE MANUFACTURER'S SERVICE REPRESENTATIVE TAKE YOU HOME. A FLOOR DIRECTOR, CAB OR UBER MANUFACTURER'S SERVICE REPRESENTATIVE CANNOT BE [place] RESPONSIBLE MANUFACTURER'S SERVICE REPRESENTATIVE. - We recommend that a responsible person [...] in our PACU area unless a minor, director project management or a special circumstance. Each patient isallowed [...] Lupis Hunter APRN.CNP 04/30/22 documented [facility] NoteHNO ID: [id number] Author: Marcus Trejo DPM Service: ? Author [...] treated at a wound care clinic in [place]. Hx of RA on immunosuppressive therapy. She [...] daily. MULTI-VITAMIN ORAL Take by mouth. Vitamin Y58-Ragajtc B1 5.5-12.5 mg-mcg/5 mL Liqd Take by mouth. CALCIUM CARBONATE (CALCIUM 600 ORAL) Take by mouth twice daily. Darling-3 Fatty Acids-Vitamin E 1,000 mg cap Take [...] Interval removal of acosta (more content not included)...[facility]12-08-2022 History of Present illness Narrative* Marcus Trejo, [...] treated at a wound care clinic in [place]. Hx of RA on immunosuppressive therapy. She [...] daily. MULTI-VITAMIN ORAL Take by mouth. Vitamin G72-Ndaalzd B1 5.5-12.5 mg-mcg/5 mL Liqd Take by mouth. CALCIUM CARBONATE (CALCIUM 600 ORAL) Take by mouth twice daily. Darling-3 Fatty Acids-Vitamin E 1,000 mg cap Take [...] Marcus Trejo DPM, FACFAS documented in this encounter[facility] Miscellaneous Notes* Telephone Encounter - Tiffani Shasha - 03/18/2022 4:36 PM EST Patient called to schedule PVR US. [facility] advis[facility]hat the patient have the test performed by vascular lab. Please resubmit proper order to reflect appropriate test needed. Please contact [place] at [phone] to update current scheduled appointment if necessary. documented in this encounter[facility]22 NoteHNO ID: [id number] Author: Marcus Trejo DPM Service: ? Author [...] She subsequently started seeing another provider in [place] who recommended removal of hardware. She underwent [...] treated at a wound care clinic in [place]. Hx of RA on immunosuppressive therapy. Denies [...] WEEKS. MULTI-VITAMIN ORAL Take by mouth. Vitamin G00-Pbzqmxc B1 5.5-12.5 mg-mcg/5 mL Liqd Take by mouth. CALCIUM CARBONATE (CALCIUM 600 ORAL) Take by mouth twice daily. Darling-3 Fatty Acids-Vitamin E 1,000 mg cap Take [...] left ankle radiographs (three (more content not included)...[facility]11-16-2022 NoteHNO ID: [id number] Author: Faina Crooks MA Service: ? Author Type: Track Laying Equipment Operator Type: Progress Notes Filed: 03/19/2022 12:15 PM [...] clots, bleeding disorders. and Plavix Faina Crooks [facility]11-16-2022 History of Present illness Narrative* Marcus [...] She subsequently started seeing another provider in [place] who recommended removal of hardware. She underwent [...] treated at a wound care clinic in [place]. Hx of RA on immunosuppressive therapy. Denies [...] WEEKS. MULTI-VITAMIN ORAL Take by mouth. Vitamin F14-Wejbmwf B1 5.5-12.5 mg-mcg/5 mL Liqd Take by mouth. CALCIUM CARBONATE (CALCIUM 600 ORAL) Take by mouth twice daily. Darling-3 Fatty Acids-Vitamin E 1,000 mg cap Take [...] Plavix Faina Crooks MA documented in [facility] encounter[facility] [place] [facility]* Diagnosis History of ankle surgery- Primary Chronic pain of left ankle Wound dehiscence Disruption of external operation (surgical) wound Decreased pedal pulses Other symptoms involving cardiovascular system documented [facility] [place] [facility]* Diagnosis History of ankle surgery- Primary Chronic pain of left ankle Wound dehiscence Disruption of external operation (surgical) wound 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) documented [facility] this encounter [facility] [place] [facility]* Diagnosis Preop examination [Z01.818 (ICD-10-CM)]- Primary Preoperative examination, unspecified 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, unspecified vessel or lesion type [I25.10 (ICD-10-CM)] Osteomyelitis of left fibula, unspecified type (HCC) [M86.9 (ICD-10-CM)] Painful orthopaedic hardware (HCC) [T84.84XA (ICD-10-CM)] Other complications due to other internal orthopedic device, implant, and graft Painful orthopaedic hardware (HCC) Other complications due to other internal orthopedic device, implant, and graft Osteomyelitis of left fibula, unspecified type (HCC) [facility]* Diagnosis Post-operative state- Primary Other postprocedural status [facility]* Diagnosis Post-operative state- Primary Other postprocedural status History of ankle surgery documented [facility] [place] [facility]* Diagnosis Post-operative state- Primary Other postprocedural status Wound dehiscence Disruption of external operation (surgical) wound documented [facility] this encounter [facility] [place] [facility]* Diagnosis Post-operative state- Primary Other postprocedural status documented in this encounter [facility] note* Diagnosis Lung mass- Primary Swelling, mass, or lump in chest History of breast cancer Personal history of malignant neoplasm of breast Rheumatoid arthritis with inflammatory polyarthropathy (HCC) documented in this encounter [facility] note* Diagnosis Lung nodule- Primary Other diseases of lung, not elsewhere classified Pleural effusion Unspecified pleural effusion COLE (dyspnea on exertion) Other dyspnea and respiratory abnormality documented in this encounter [facility] for referral (narrative)* Diagnostic Procedure Only (Routine) - Pending Review Specialty Diagnoses / Procedures Referred By Марина t Referred To Contact US IMAGING Diagnoses Wound dehiscence Decreased pedal pulses Procedures US ARTERIAL PVR LOWER NON-INVASIVE PHYSIOLOGIC STUDY EXTREMITY 3 LEVLS Marcus Trejo DPM [address] [place] [address] Us Imaging Referral ID Status Reason Start Date Expiration Date Visits Requested Visits Authorized [id number] Pending Review Auto-Generat ed Referral 2 04/17/2023 1 1 * Diagnostic Procedure Only (Routine) - Pending Review Specialty Diagnoses / Procedures Referred By Марина t Referred To Contact XR IMAGING Diagnoses History of ankle surgery Chronic pain of left ankle Procedures XR ANKLE GENERAL 3V AP/LAT/OBL LEFT RADEX ANKLE COMPLETE MINIMUM 3 VIEWS Marcus Trejo DPM [address] [place] [address] Xr Imaging Referral ID Status Reason Start Date Expiration Date Visits Requested Visits Authorized [id number] Pending Review Auto-Generat ed Referral 2 04/17/2023 1 1 [facility] Summary Purpose Family History No Family History Records FoundNo Family History Records FoundNo Family History Records FoundNo Family History Records Found Advance Directives No Advanced Directives Records FoundNo Advanced Directives Records FoundNo Advanced Directives Records FoundNo Advanced Directives Records Found Additional Source Comments INFORMATION SOURCE (unrecogn ized section and content) DATE CREATED AUTHOR AUTHOR'S ORGANIZ ATION 04/02/2022 [facility] DATE CREATED AUTHOR AUTHOR'S ORGANIZ ATION 09/09/2022 [facility] DATE CREATED AUTHOR AUTHOR'S ORGANIZ ATION 01/06/2023 [facility] Source Comments (unrecognize d section and content) In the event this informatio n is protected by the Federal Confidentiality of Alcohol and Drug Abuse Patient Records regulations: The Federal rules restrict any use of the information to criminally investigate or prosecute any alcohol or drug abuse patient.[facility] Hospital[facility] the event this information is protected by the Federal Confidentiality of Alcohol and Drug Abuse Patient Records regulations: The Federal rules restrict any use of the information to criminally investigate or prosecute any alcohol or drug abuse patient.[facility] HospitalIn the event this information is protected by the Federal Confidentiality of Alcohol and Drug Abuse Patient Records regulations: The Federal rules restrict any use of the information to criminally investigate or prosecute any alcohol or drug abuse patient.[facility] HospitalIn the event this information is protected by the Federal Confidentiality of Alcohol and Drug Abuse Patient Records regulations: The Federal rules restrict any use of the information to criminally investigate or prosecute any alcohol or drug abuse patient.[facility] HospitalIn the event this information is protected by the Federal Confidentiality of Alcohol and Drug Abuse Patient Records regulations: The Federal rules restrict any use of the information to criminally investigate or prosecute any alcohol or drug abuse patient.[facility] HospitalIn the event this information is protected by the Federal Confidentiality of Alcohol and Drug Abuse Patient Records regulations: The Federal rules restrict any use of the information to criminally investigate or prosecute any alcohol or drug abuse patient.[facility] HospitalIn the event this information is protected by the Federal Confidentiality of Alcohol and Drug Abuse Patient Records regulations: The Federal rules restrict any use of the information to criminally investigate or prosecute any alcohol or drug abuse patient.[facility] HospitalIn the event this information is protected by the Federal Confidentiality of Alcohol and Drug Abuse Patient Records regulations: The Federal rules restrict any use of the information to criminally investigate or prosecute any alcohol or drug abuse patient.[facility] HospitalIn the event this information is protected by the Federal Confidentiality of Alcohol and Drug Abuse Patient Records regulations: The Federal rules restrict any use of the information to criminally investigate or prosecute any alcohol or drug abuse patient.[facility] HospitalIn the event this information is protected by the Federal Confidentiality of Alcohol and Drug Abuse Patient Records regulations: The Federal rules restrict any use of the information to criminally investigate or prosecute any alcohol or drug abuse patient.[facility] Reason for Visit (unrecogniz ed section [...] history of malignant neoplasm of breast Procedures FL OFFICE/OUTPATIENT NEW MODERATE MDM 45-59 MINUTES [address]te[address]r. [address] [place] [address] [facility] [address] [place] [address] Referral ID Status Reason Start Date Expiration Date V isits Requested Visits Authorized [id number] Pending Review 09/15/2022 09/15/2023 1 1 Reason Onset Date Comments Care Coordination 09/30/2022 Lung Nodule Fo llow Up Reason Comments Results Care Teams (unrecognized sec tion and content) Head Of It Relationship Specialty Start Date End Date Teagan Hall [address] [place] [address] PCP - General 08/13/00 Head Of It Relationship Specialty Start Date End Date Teagan Hall [address] [place] [address] PCP - General 08/13/00 Head Of It Relationship Specialty Start Date End Date Teagan Hall [address] [place] [address] PCP - General 08/13/00 Head Of It Relationship Specialty Start Date End Date Teagan Hall [address] [place] [address] PCP - General 08/13/00 Head Of It Relationship Specialty Start Date End Date Teagan Hall [address] [place] [address] PCP - General 08/13/00 Head Of It Relationship Specialty Start Date End Date Teagan Hall [address] [place] [address] PCP - General 08/13/00 Head Of It Relationship Specialty Start Date End Date Teagan Hall [address] [place] [address] PCP - General Family Medicine 09/16/22 Head Of It Relationship Specialty Start Date End Date Teagan Hall [address] [place] [address] PCP - General Family Medicine 09/16/22 Head Of It Relationship Specialty Start Date End Date Teagan Hall [address] [place] [phone] PCP - General Family Medicine 09/16/22 Head Of It Relationship Specialty Start Date End Date Teagan Hall [address] [place] [phone] PCP - General Family Medicine 09/16/22 FOR [...] BE BASED ON THE PRIMARY CLINICAL RECORDS. [facility] [employer] [facility]. provides no warranty or guarantee of the accuracy or completeness of information in this document.
--- NOTE | 2023-05-12 13:50 | PFT ---
INTRODUCTION: The patient is an 87-year-old female who presents for pulmonary function studies secondary to a diagnosis of dyspnea. Respiratory therapy reported good patient effort. Bronchodilators were used during testing. INTERPRETATION: Forced expiration spirometry demonstrated no evidence of a large airways obstructive ventilatory defect. There was no significant response to aerosolized bronchodilators. Spirograms are of good quality and plateau normally. Body plethysmography was performed and revealed lung volumes to be within normal limits. Diffusing capacity by single breath CO is reduced at 65% of predicted. IMPRESSION: Isolated mild reduction in diffusing capacity.
== END | disposition home or self-care (01) ==
LOC: PSN 08:11
PROVIDERS: PCP Family Medicine; Referring Provider Nurse Practitioner Acute Care; Visit Provider Nurse Practitioner Acute Care
DX: R06.00 Dyspnea, unspecified (principal)
CPT/HCPCS: 94060; 94726; 94729

== ENCOUNTER → 2023-05-12 | Outpatient (CLI) | payer MEDICARE, SELFPAY ==
[2020-06-07 08:50] VITALS: BMI 19.4
--- OUTSIDE RECORDS SUMMARY | 2023-05-12 12:44 | XMS RPT_ITS | CCD ---
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 Marcus Trejo DPM, FACFAS documented in this encounter [facility] 05-18-2022 Note HNO ID: [id number] Author: Deedee Corley APRN.WINDOWS ADMINISTRATOR Service: Anesthesiology Author Type: Nurse Brake Specialist Type: Anesthesia Procedure Notes Filed: 05/18/2022 3:54 PM Note Text: ANESTHESIOLOGY PROCEDURE NOTE Airway General Information Procedure Start Time/Medication Administration: 05/18/2022 3:24 PM Patient location during procedure: OR Timeout Performed Pre-procedure: timeout performed Consent Obtained: Yes Patient identity confirmed: arm band and patient Staffing WINDOWS ADMINISTRATOR: Deedee Corley APRN.WINDOWS ADMINISTRATOR Performed by: MAIDA Indications and Patient Condition Indications for airway management: anesthesia Preoxygenated: yes anesthesia circuit Patient position: sniffing Method: asleep Final Airway Details Final airway type: supraglottic airway Number of attempts at approach: 1 Final Supraglottic Airway: i-gel Size 4 Seal Adequate: yes SIGNATURE: Deedee Corley APRN.CRNA PATIENT NAME: Roberto Ferguson DATE: May 18, 2022 TIME: 3:49 PM CSN: [id number] [facility] documented as of this encounter (statuses as of 06/06/2022) [facility]01-16-2023 History of Past illness Narrative* Problem Noted Date Resolved Date Painful orthopaedic hardware 05/18/2022 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/18/2022 documented as of this encounter (statuses as of 06/09/2022) [facility]01-16-2023 History of Past illness Narrative* Problem Noted Date Resolved Date Painful orthopaedic hardware 05/18/2022 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/18/2022 documented as of this encounter (statuses as of 06/19/2022) [facility]01-16-2023 History of Past illness Narrative* Problem Noted Date Resolved Date Painful orthopaedic hardware 05/18/2022 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/18/2022 documented as of this encounter (statuses as of 06/29/2022) [facility]01-16-2023 History of Past illness Narrative* Problem Noted Date Resolved Date Painful orthopaedic hardware 05/18/2022 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/18/2022 documented as of this encounter (statuses as of 07/19/2022) [facility]-16-20[facility] History of Past illness Narrative* Problem Noted Date Resolved Date Painful orthopaedic hardware 05/18/2022 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/18/2022 documented as of this encounter (statuses as of 08/17/2022) [address]05-2023 NoteHNO ID: [id number] Author: Blanca Cabral APRN.PHOSPHORIC ACID SUPERVISOR Service: Anesthesiology Author Type: Nurse Practitioner Type: Progress Notes Filed: 05/07/2022 12:22 PM Note Text: Summary: PAT Medical clearance has already been requested from Dr. Hall by Dr. Trejo. Left message for Shona at Dr. Trejo's office requesting the clearance be scanned into [employer] once received. Case reviewed with Dr. Boyd, anesthesiologist. No additional clearances requested. Okay to proceed with medical clearance only per Dr. Boyd. Maggie to follow up.[facility]01-03-2023 NoteHNO ID: [id number] Author: Lupis Hunter APRN.PHOSPHORIC ACID SUPERVISOR Service: ? Author Type: Nurse Practitioner Type: Progress Notes Filed: 05/05/2022 12:35 PM Note Text: CC CONCHE OPERATOR Please review and discuss with anesthesia if any additional clearances are needed. Medical clearance has been requested. Pt had an MT 04/2020, she then had a stent placed. [...] 2019, managed by Dr. Shane, last OV [facility]01-03-2023 History and physical note* Lupis Hunter APRN.PHOSPHORIC ACID SUPERVISOR - 05/05/2022 10:40 AM EST HISTORY AND PHYSICAL EXAMINATION SERVICE DATE: 04/30/2022 SERVICE TIME: 11:30 AM PRIMARY CARE PHYSICIAN: Teagan Hall MD REASON FOR VISIT: Roberto Ferguson is a 86 year old female who is scheduled for Procedure(s): REMOVAL HARDWARE LEFT ANKLE (Left) DEBRIDEMENT OSTEOMYELITIS LEFT FIBULA (Left) INSERTION ANTIBIOTIC CEMENT LEFT ANKLE (Left) at the request of Dr. Marucs Trejo for routine H&P. My final recommendation [...] Negative for: dysuria, hematuria and renal failure. MOBILE BATTERY TECHNICIAN: Negative for abnormal vaginal bleeding, abnormal vaginal [...] by mouth once daily. Taking Yes Vitamin Q90-Wwjwjad B1 5.5-12.5 mg-mcg/5 mL Liqd Take 1 tablet by mouth once daily. Taking Yes CALCIUM CARBONATE (CALCIUM 600 ORAL) Take by mouth twice daily. Taking Yes Saint Johns-3 Fatty Acids-Vitamin E 1,000 mg cap Take [...] or any previous visit (from the past 16889 hour(s)). Assessment Cotter Activity Status Index: METS: Take care of self; that is eating, dressing, bathing, using the toilet (2.75 METs) DASI Score: 2.75 (+SOB, denies CP) Patient denies any chest pain or undue shortness of breath with the above physical activity. STOP-Bang Score: STOP-Bang Score: 0 [id number] Score: [id number] Score: 0 ARISCAT Score: Age: >80 Preoperative [...] to get preop instructions from surgeon and physiology teacher. The Following Tests/Procedures Have Been Initiated: No [...] 2:05 PM PAGER/CONTACT #: [facility] Instructions* Patient Instructions* Lupis Hunter APRN.CNP - 04/30/2022 2:01 PM EST PATIENT PREOPERATIVE INSTRUCTIONS Dr. Trejo has scheduled you for your procedure at this surgery center: [facility]: [phone], [address] [phone] Please read below carefully for your personalized [...] surgery. - YOU MUST HAVE A RESPONSIBLE BREWERY CELLAR WORKER TAKE YOU HOME. A ABSTRACT SEARCHER, CAB OR UBER BREWERY CELLAR WORKER CANNOT BE MADEA RESPONSIBLE BREWERY CELLAR WORKER. - We recommend that a responsible person [...] in our PACU area unless a minor, student loan counselor or a special circumstance. Each patient isallowed [...] Lupis Hunter APRN.CNP 04/30/22 [facility]22 NoteHNO ID: [id number] Author: Marcus Trejo DPM Service: ? Author [...] treated at a wound care clinic in [place]. Hx of RA on immunosuppressive therapy. She [...] daily. MULTI-VITAMIN ORAL Take by mouth. Vitamin X16-Lgjsjur B1 5.5-12.5 mg-mcg/5 mL Liqd Take by mouth. CALCIUM CARBONATE (CALCIUM 600 ORAL) Take by mouth twice daily. [facility] Johns-3 Fatty Acids-Vitamin E 1,000 mg cap Take [...] Interval removal of acosta (more content not included)...[facility]12[facility] History of Present illness Narrative* [...] treated at a wound care clinic in [place]. Hx of RA on immunosuppressive therapy. She [...] daily. MULTI-VITAMIN ORAL Take by mouth. Vitamin M34-Xaqdwuz B1 5.5-12.5 mg-mcg/5 mL Liqd Take by mouth. CALCIUM CARBONATE (CALCIUM 600 ORAL) Take by mouth twice daily. [place] Johns-3 Fatty Acids-Vitamin E 1,000 mg cap Take [...] Marcus Trejo DPM, FACFAS [facility] Miscellaneous Notes* Telephone Encounter - Tiffani Shasha - 03/18/2022 4:36 PM EST Patient called to schedule PVR US. [facility] advisesthat the patient have the test performed by vascular lab. Please resubmit proper order to reflect appropriate test needed. Please contact [place] at [phone] to update current scheduled appointment if necessary. documented in this encounter[facility]-2022 NoteHNO ID: [id number] Author: Marcus Trejo DPM Service: ? Author [...] She subsequently started seeing another provider in [place] who recommended removal of hardware. She underwent [...] treated at a wound care clinic in [place]. Hx of RA on immunosuppressive therapy. Denies [...] WEEKS. MULTI-VITAMIN ORAL Take by mouth. Vitamin A20-Bijeqal B1 5.5-12.5 mg-mcg/5 mL Liqd Take by mouth. CALCIUM CARBONATE (CALCIUM 600 ORAL) Take by mouth twice daily. [facility] Johns-3 Fatty Acids-Vitamin E 1,000 mg cap Take [...] left ankle radiographs (three (more content not included)...[facility]11-16-2022 NoteHNO ID: [id number] Author: Faina Crooks MA Service: ? Author Type: Feather Separator Type: Progress Notes Filed: 03/19/2022 12:15 PM [...] clots, bleeding disorders. and Plavix Faina Crooks [facility]11-16-2022 History of Present illness Narrative* Marcus [...] She subsequently started seeing another provider in [place] who recommended removal of hardware. She underwent [...] treated at a wound care clinic in [place]. Hx of RA on immunosuppressive therapy. Denies [...] WEEKS. MULTI-VITAMIN ORAL Take by mouth. Vitamin B28-Wlzmskj B1 5.5-12.5 mg-mcg/5 mL Liqd Take by mouth. CALCIUM CARBONATE (CALCIUM 600 ORAL) Take by mouth twice daily. [facility] Johns-3 Fatty Acids-Vitamin E 1,000 mg cap Take [...] Plavix Faina Crooks MA [facility] Diagnosis History of ankle surgery- Primary Chronic pain of left ankle Wound dehiscence Disruption of external operation (surgical) wound Decreased pedal pulses Other symptoms involving cardiovascular system [facility] Diagnosis History of ankle surgery- Primary Chronic pain of left ankle Wound dehiscence Disruption of external operation (surgical) wound 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) [facility] Diagnosis Preop examination [Z01.818 (ICD-10-CM)]- Primary Preoperative examination, unspecified 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, unspecified vessel or lesion type [I25.10 (ICD-10-CM)] Osteomyelitis of left fibula, unspecified type (HCC) [M86.9 (ICD-10-CM)] Painful orthopaedic hardware (HCC) [T84.84XA (ICD-10-CM)] Other complications due to other internal orthopedic device, implant, and graft Painful orthopaedic hardware (HCC) Other complications due to other internal orthopedic device, implant, and graft Osteomyelitis of left fibula, unspecified type (HCC) [facility]* Diagnosis Post-operative state- Primary Other postprocedural status [facility]* Diagnosis Post-operative state- Primary Other postprocedural status History of ankle surgery [facility] Diagnosis Post-operative state- Primary Other postprocedural status Wound dehiscence Disruption of external operation (surgical) wound [facility]* Diagnosis Post-operative state- Primary Other postprocedural status documented in this encounter [facility] note* Diagnosis Lung mass- Primary Swelling, mass, or lump in chest History of breast cancer Personal history of malignant neoplasm of breast Rheumatoid arthritis with inflammatory polyarthropathy (HCC) documented in this encounter [facility] note* Diagnosis Lung nodule- Primary Other diseases of lung, not elsewhere classified Pleural effusion Unspecified pleural effusion COLE (dyspnea on exertion) Other dyspnea and respiratory abnormality documented in this encounter [facility] for referral (narrative)* Diagnostic Procedure Only (Routine) - Pending Review Specialty Diagnoses / Procedures Referred By Марина t Referred To Contact US IMAGING Diagnoses Wound dehiscence Decreased pedal pulses Procedures US ARTERIAL PVR LOWER NON-INVASIVE PHYSIOLOGIC STUDY EXTREMITY 3 LEVLS Marcus Trejo DPM [address] [place] [address] Us Imaging Referral ID Status Reason Start Date Expiration Date Visits Requested Visits Authorized [id number] Pending Review Auto-Generat ed Referral 2 04/17/2023 1 1 * Diagnostic Procedure Only (Routine) - Pending Review Specialty Diagnoses / Procedures Referred By Марина t Referred To Contact XR IMAGING Diagnoses History of ankle surgery Chronic pain of left ankle Procedures XR ANKLE GENERAL 3V AP/LAT/OBL LEFT RADEX ANKLE COMPLETE MINIMUM 3 VIEWS Marcus Trejo DPM [address] [place] [address] Xr Imaging Referral ID Status Reason Start Date Expiration Date Visits Requested Visits Authorized [id number] Pending Review Auto-Generat ed Referral 2 04/17/2023 1 1 [facility] Summary Purpose Family History No Family History Records FoundNo Family History Records FoundNo Family History Records FoundNo Family History Records Found Advance Directives No Advanced Directives Records FoundNo Advanced Directives Records FoundNo Advanced Directives Records FoundNo Advanced Directives Records Found Additional Source Comments INFORMATION SOURCE (unrecogn ized section and content) DATE CREATED AUTHOR AUTHOR'S ORGANIZ ATION 04/02/2022 [facility] DATE CREATED AUTHOR AUTHOR'S ORGANIZ ATION 09/09/2022 [facility] DATE CREATED AUTHOR AUTHOR'S ORGANIZ ATION 01/06/2023 [facility] Source Comments (unrecognize d section and content) In the event this informatio n is protected by the Federal Confidentiality of Alcohol and Drug Abuse Patient Records regulations: The Federal rules restrict any use of the information to criminally investigate or prosecute any alcohol or drug abuse patient.[facility] the event this information is protected by the Federal Confidentiality of Alcohol and Drug Abuse Patient Records regulations: The Federal rules restrict any use of the information to criminally investigate or prosecute any alcohol or drug abuse patient.[facility] the event this information is protected by the Federal Confidentiality of Alcohol and Drug Abuse Patient Records regulations: The Federal rules restrict any use of the information to criminally investigate or prosecute any alcohol or drug abuse patient.[facility] the event this information is protected by the Federal Confidentiality of Alcohol and Drug Abuse Patient Records regulations: The Federal rules restrict any use of the information to criminally investigate or prosecute any alcohol or drug abuse patient.[facility] the event this information is protected by the Federal Confidentiality of Alcohol and Drug Abuse Patient Records regulations: The Federal rules restrict any use of the information to criminally investigate or prosecute any alcohol or drug abuse patient.[facility] the event this information is protected by the Federal Confidentiality of Alcohol and Drug Abuse Patient Records regulations: The Federal rules restrict any use of the information to criminally investigate or prosecute any alcohol or drug abuse patient.[facility] the event this information is protected by the Federal Confidentiality of Alcohol and Drug Abuse Patient Records regulations: The Federal rules restrict any use of the information to criminally investigate or prosecute any alcohol or drug abuse patient.[facility] the event this information is protected by the Federal Confidentiality of Alcohol and Drug Abuse Patient Records regulations: The Federal rules restrict any use of the information to criminally investigate or prosecute any alcohol or drug abuse patient.[facility] the event this information is protected by the Federal Confidentiality of Alcohol and Drug Abuse Patient Records regulations: The Federal rules restrict any use of the information to criminally investigate or prosecute any alcohol or drug abuse patient.[facility] the event this information is protected by the Federal Confidentiality of Alcohol and Drug Abuse Patient Records regulations: The Federal rules restrict any use of the information to criminally investigate or prosecute any alcohol or drug abuse patient.[facility] Reason for Visit (unrecogniz ed section and [...] history of malignant neoplasm of breast Procedures [place] OFFICE/OUTPATIENT NEW MODERATE MDM 45-59 MINUTES [address]. [address] [place] [address] [facility] [address] [place] [address] Referral ID Status Reason Start Date Expiration Date V isits Requested Visits Authorized [id number] Pending Review 09/15/2022 09/15/2023 1 1 Reason Onset Date Comments Care Coordination 09/30/2022 Lung Nodule Fo llow Up Reason Comments Results Care Teams (unrecognized sec tion and content) Octave Board Assembler Relationship Specialty Start Date End Date Teagan Hall [address] [place] [address] PCP - General 08/13/00 Octave Board Assembler Relationship Specialty Start Date End Date Teagan Hall [address] [place] [address] PCP - General 08/13/00 Octave Board Assembler Relationship Specialty Start Date End Date Teagan Hall [address] [place] [address] PCP - General 08/13/00 Octave Board Assembler Relationship Specialty Start Date End Date Teagan Hall [address] [place] [address] PCP - General 08/13/00 Octave Board Assembler Relationship Specialty Start Date End Date Teagan Hall [address] [place] [address] PCP - General 08/13/00 Octave Board Assembler Relationship Specialty Start Date End Date Teagan Hall [address] [place] [address] PCP - General 08/13/00 Octave Board Assembler Relationship Specialty Start Date End Date Teagan Hall [address] [place] [address] PCP - General Family Medicine 09/16/22 Octave Board Assembler Relationship Specialty Start Date End Date Teagan Hall [address] [place] [address] PCP - General Family Medicine 09/16/22 Octave Board Assembler Relationship Specialty Start Date End Date Teagan Hall [address] [place] [phone] PCP - General Family Medicine 09/16/22 Octave Board Assembler Relationship Specialty Start Date End Date Teagan Hall [address] [place] [phone] PCP - General Family Medicine 09/16/22 FOR [...] BE BASED ON THE PRIMARY CLINICAL RECORDS. [facility] [employer] [facility]. provides no warranty or guarantee of the accuracy or completeness of information in this document.
[2023-05-12 12:58] VITALS: PULSE 60; PULSE 61; PULSE 67; PULSE 70; PULSE 71; PULSE 74; PULSE 75; O2SAT 92; O2SAT 94; O2SAT 95; O2SAT 97; O2SAT 99
--- NOTE | 2023-05-13 10:22 | WT_ITS ---
PSN 6 Minute Walk Test 6 Minute Walk Test 6 Minute Walk Test: 6 Minute Walk Test PSN:6-Minute Walk Test Start: 05/12/23 12:57 Freq: Status: Active Protocol: RESP.6MINW Document 05/12/23 12:58 [email or web address] (Rec: 05/12/23 13:02 CONRAD [id number]) 6 Minute Walk Test Date Performed 05/12/23 Time Performed 12:30 Height 5 ft 5 in Weight: 112 lb Weight in Pounds 112.[address]: Mariely Petersen SUSTAINABILITY PROJECT COORDINATOR Assistive device used: None Pre-test Oxygen Delivery Method Room Air Pulse Ox 99 Pulse Rate (60-100) 60 Dyspnea Abiola Scale (0-10) 0 Exertion Abiola Scale (6-20) 6 1st minute Oxygen Delivery Method Room Air Pulse Ox 97 Pulse Rate (60-100) 67 2nd minute Oxygen Delivery Method Room Air Pulse Ox 94 Pulse Rate (60-100) 70 3rd minute Oxygen Delivery Method Room Air Pulse Ox 95 Pulse Rate (60-100) 71 4th minute Oxygen Delivery Method Room Air Pulse Ox 92 Pulse Rate (60-100) 74 5th minute Oxygen Delivery Method Room Air Pulse Ox 95 Pulse Rate (60-100) 74 6th minute Oxygen Delivery Method Room Air Pulse Ox 94 Pulse Rate (60-100) 75 Dyspnea Abiola Scale (0-10) 3 Exertion Abiola Scale (6-20) 11 Post-test Oxygen Delivery Method Room Air Pulse Ox 97 Pulse Rate (60-100) 61 Full Laps Walked 20 Partial Lap, Number of Tiles Walked 32 Total Distance Walked (ft) 1212 Interpretation Interpretation: The patient ambulated 1212 feet over the course of 6 minutes beginning on room air without assistive devices. Pretesting oxygen saturation was noted to be 99% on room air. With ambulation, the jacy oxygen saturation was 92%. This represents a significant exertional oxygen desaturation. Recommendations Recommendations: There is no indication for the use of supplemental oxygen at this time. However, close interval follow-up was recommended, given the degree of oxygen desaturation noted during this study.
== END | disposition home or self-care (01) ==
LOC: PSN 12:30
PROVIDERS: PCP Family Medicine; Referring Provider Nurse Practitioner Acute Care; Visit Provider Nurse Practitioner Acute Care
DX: R06.00 Dyspnea, unspecified (principal)
CPT/HCPCS: 94618

== ENCOUNTER 2023-05-26 14:59 | Outpatient (CLI) | payer MEDICARE, SELFPAY ==
[2020-06-07 08:50] VITALS: BMI 19.4
[2023-05-26 15:13] VITALS: BP 130/39; PULSE 65; RESP 16; TEMP 36.9; O2SAT 98; BMI 19.1
[2023-05-26] MEDS: 0.9% NaCl IVPB Med Flush (250 mL) 15 ML IV (15:29)
[2023-05-26] MEDS: 0.9% NaCl Peripheral Flush Adult/Peds IV (15:29)
[2023-05-26] MEDS: NORMAL SALINE 0.9% IV (15:40)
[2023-05-26] MEDS: ABATACEPT IV (15:40)
[2023-05-26 16:29] VITALS: BP 134/58; PULSE 61; RESP 16; TEMP 36.8; O2SAT 99
== END 2023-05-26 15:00 | disposition home or self-care (01) ==
LOC: MEDOUTP 14:59
PROVIDERS: PCP Family Medicine; Referring Provider Internal Medicine Rheumatology; Visit Provider Internal Medicine Rheumatology
DX: M05.70 Rheumatoid arthritis with rheumatoid factor of unspecified site without organ or systems involvement (principal)
CPT/HCPCS: 96365; J7050; A4216; J0129

== ENCOUNTER 2023-06-23 13:52 | Outpatient (CLI) | payer MEDICARE, SELFPAY ==
[2020-06-07 08:50] VITALS: BMI 19.4
[2023-06-23 14:09] VITALS: BP 138/74; PULSE 71; RESP 16; TEMP 36.8; O2SAT 95; BMI 19.6
[2023-06-23] MEDS: NORMAL SALINE 0.9% IV (14:36)
[2023-06-23] MEDS: ABATACEPT IV (14:36)
[2023-06-23] MEDS: 0.9% NaCl IVPB Med Flush (250 mL) 15 ML IV (14:36)
[2023-06-23 14:45] LABS: Absolute Lymphocyte Count 0.74 X10^3/uL (0.83-4.51); Absolute Neutrophil Count 4.5 X10^3/uL (2.0-7.7); Basophil# 0.02 X10^3/uL; Basophil% 0.3 % (0-1); Eosinophil# 0.02 X10^3/uL; Eosinophils% 0.3 % (0-5); Hematocrit 40.8 % (37-47); Hemoglobin 13.5 g/dL (12.0-15.0); Lymphocyte # 0.74 X10^3/ul (0.83-4.51); Lymphocyte % 12.8 % (19-41); Mean Corp Hgb Conc 33.1 g/dL (32-36); Mean Corpuscular Hgb 31.5 pg (27.0-32.0); Mean Corpuscular Volume 95.3 fL (81-99); Mean Platelet Vol. 10.6 fl (6.2-12.0); Monocyte# 0.48 X10^3/uL; Monocyte% 8.3 % (0-10); NRBC Flagged by Analyzer 0 % (0-5); Neutrophil # 4.49 X10^3/uL (2.7-7.7); Neutrophil % 78.1 % (47-70); Platelet Count 168 K/mm3 (150-450); RBC Distribution Width CV 14.1 % (11.6-14.6); RBC Distribution Width SD 49.1 fl (35.1-43.9); Red Blood Count 4.28 M/mm3 (4.2-5.4); White Blood Count 5.8 K/mm3 (4.4-11.0)
[2023-06-23 14:53] LABS: AST(SGOT) 23 U/L (15-37); Alanine Aminotransfer ALT/SGPT 24 U/L (13-56); Albumin, Serum 3.5 g/dL (3.2-5.0); Alkaline Phosphatase 74 U/L (45-117); Anion Gap 6 (5-15); BUN 33 mg/dL (7-18); BUN/Creat Ratio 29.7 RATIO (10-20); Chloride 105 mmol/L (98-107); Creatinine, Serum 1.11 mg/dL (0.55-1.02); EST Glomerular Filtration Rate 49 mL/min (>60); Est Glom Filt Rate - Afr Amer 60 mL/min (>60); Estimated Creatinine Clearance 30.74 ml/min; Globulin 3.4 g/dL (2.2-4.2); Glucose 133 mg/dL (74-106); Potassium 3.8 mmol/L (3.5-5.1); Protein, Total 6.9 g/dL (6.4-8.2); Sodium Level 137 mmol/L (136-145)
[2023-06-23 15:02] LABS: Thyroid Stim Hormone (TSH) 0.93 uIU/mL (0.358-3.74)
[2023-06-23 15:34] VITALS: BP 126/60; PULSE 63; RESP 16
--- OUTSIDE RECORDS SUMMARY | 2023-06-23 17:50 | XMS RPT_ITS | CCD ---
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 05/18/2022 3:54 PM Note Text: ANESTHESIOLOGY PROCEDURE NOTE Airway General Information Procedure Start Time/Medication Administration: 05/18/2022 3:24 PM Patient location during procedure: OR Timeout Performed Pre-procedure: timeout performed Consent Obtained: Yes Patient identity confirmed: arm band and patient Staffing BLACK TOP MACHINE OPERATOR: Deedee Corley APRN.BLACK TOP MACHINE OPERATOR Performed by: MAIDA Indications and Patient Condition Indications for airway management: anesthesia Preoxygenated: yes anesthesia circuit Patient position: sniffing Method: asleep Final Airway Details Final airway type: supraglottic airway Number of attempts at approach: 1 Final Supraglottic Airway: i-gel Size 4 Seal Adequate: yes SIGNATURE: Deedee Corley APRN.CRNA PATIENT NAME: Roberto Ferguson DATE: May 18, 2022 TIME: 3:49 PM CSN: [id number] [facility] documented as of this encounter (statuses as of 06/06/2022) [facility]01-16-2023 History of Past illness Narrative* Problem Noted Date Resolved Date Painful orthopaedic hardware 05/18/2022 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/18/2022 documented as of this encounter (statuses as of 06/09/2022) [facility]01[facility] History of Past illness Narrative* Problem Noted Date Resolved Date Painful orthopaedic hardware 05/18/2022 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/18/2022 documented as of this encounter (statuses as of 06/19/2022) [facility] History of Past illness Narrative* Problem Noted Date Resolved Date Painful orthopaedic hardware 05/18/2022 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/18/2022 documented as of this encounter (statuses as of 06/29/2022) [facility]01[facility]16[facility] History of Past illness Narrative* Problem Noted Date Resolved Date Painful orthopaedic hardware 05/18/2022 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/18/2022 documented as of this encounter (statuses as of 07/19/2022) [facility] History of Past illness Narrative* Problem Noted Date Resolved Date Painful orthopaedic hardware 05/18/2022 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/18/2022 documented as of this encounter (statuses as of 08/17/2022) [address]05-2023 NoteHNO ID: [id number] Author: Blanca Cabral APRN.SALES AND MARKETING MANAGER Service: Anesthesiology Author Type: Nurse Practitioner Type: Progress Notes Filed: 05/07/2022 12:22 PM Note Text: Summary: PAT Medical clearance has already been requested from Dr. Hall by Dr. Trejo. Left message for Shona at Dr. Trejo's office requesting the clearance be scanned into [employer] once received. Case reviewed with Dr. Boyd, anesthesiologist. No additional clearances requested. Okay to proceed with medical clearance only per Dr. Boyd. Maggie to follow up.[facility]01-03-2023 NoteHNO ID: [id number] Author: Lupis Hunter APRN.SALES AND MARKETING MANAGER Service: ? Author Type: Nurse Practitioner Type: Progress Notes Filed: 05/05/2022 12:35 PM Note Text: CC WOODS BOSS Please review and discuss with anesthesia if any additional clearances are needed. Medical clearance has been requested. 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 [...] 2019, managed by Dr. Shane, last OV [facility]01-03-2023 History and physical note* Lupis Hunter APRN.SALES AND MARKETING MANAGER - 05/05/2022 10:40 AM EST HISTORY AND [...] Negative for: dysuria, hematuria and renal failure. FIRE CHIEF'S AIDE: Negative for abnormal vaginal bleeding, abnormal vaginal [...] by mouth once daily. Taking Yes Vitamin P34-Jwcrugw B1 5.5-12.5 mg-mcg/5 mL Liqd Take 1 tablet by mouth once daily. Taking Yes CALCIUM CARBONATE (CALCIUM 600 ORAL) Take by mouth twice daily. Taking Yes [place]-3 Fatty Acids-Vitamin E 1,000 mg cap Take [...] or any previous visit (from the past 50661 hour(s)). Assessment Cotter Activity Status Index: METS: Take care of self; that is eating, dressing, bathing, using the toilet (2.75 METs) DASI Score: 2.75 (+SOB, denies CP) Patient denies any chest pain or undue shortness of breath with the above physical activity. STOP-Bang Score: STOP-Bang Score: 0 [id number] Score: [id number] Score: 0 ARISCAT Score: Age: >80 Preoperative [...] to get preop instructions from surgeon and clinical statistical programmer. The Following Tests/Procedures Have Been Initiated: No [...] 2:05 PM PAGER/CONTACT #: [facility] Instructions* Patient Instructions* Lupis Hunter APRN.CNP - 04/30/2022 2:01 PM EST PATIENT PREOPERATIVE INSTRUCTIONS Dr. Trejo has scheduled you for your procedure at this surgery center: [facility]: [phone], [address] [phone] Please read below carefully for your personalized [...] surgery. - YOU MUST HAVE A RESPONSIBLE BLACKTOP PAVER OPERATOR TAKE YOU HOME. A SOLAR ENERGY TECHNICIAN, CAB OR UBER BLACKTOP PAVER OPERATOR CANNOT BE MADEA RESPONSIBLE BLACKTOP PAVER OPERATOR. - We recommend that a responsible person [...] in our PACU area unless a minor, corrosion control fitter or a special circumstance. Each patient isallowed [...] Lupis Hunter APRN.CNP 04/30/22 documented in [facility]22 NoteHNO ID: [id number] Author: Marcus Trejo DPM Service: ? Author [...] treated at a wound care clinic in [place]. Hx of RA on immunosuppressive therapy. She [...] daily. MULTI-VITAMIN ORAL Take by mouth. Vitamin M51-Wadgqey B1 5.5-12.5 mg-mcg/5 mL Liqd Take by mouth. CALCIUM CARBONATE (CALCIUM 600 ORAL) Take by mouth twice daily. [place]-3 Fatty Acids-Vitamin E 1,000 mg cap Take [...] Interval removal of acosta (more content not included)...[facility]12-08-2022 History of Present illness Narrative* Marcus [...] treated at a wound care clinic in [place]. Hx of RA on immunosuppressive therapy. She [...] daily. MULTI-VITAMIN ORAL Take by mouth. Vitamin U48-Nlqscpy B1 5.5-12.5 mg-mcg/5 mL Liqd Take by mouth. CALCIUM CARBONATE (CALCIUM 600 ORAL) Take by mouth twice daily. [place]-3 Fatty Acids-Vitamin E 1,000 mg cap Take [...] Marcus Trejo DPM, FACFAS documented in this encounterUniversity [facility]11-[facility]22 Miscellaneous Notes* Telephone Encounter - Tiffani Shasha - 03/18/2022 4:36 PM EST Patient called to schedule PVR US. [facility] advis[facility]hat the [facility] have the test performed by vascular lab. Please resubmit proper order to reflect appropriate test needed. Please contact [place] at [phone] to update current scheduled appointment if necessary. documented in this encounterUniversity Hospitals [facility]11-16-2022 NoteHNO ID: [id number] Author: Marcus Trejo DPM Service: ? Author [...] She subsequently started seeing another provider in [place] who recommended removal of hardware. She underwent [...] treated at a wound care clinic in [place]. Hx of RA on immunosuppressive therapy. Denies [...] WEEKS. MULTI-VITAMIN ORAL Take by mouth. Vitamin O78-Vbwmzvy B1 5.5-12.5 mg-mcg/5 mL Liqd Take by mouth. CALCIUM CARBONATE (CALCIUM 600 ORAL) Take by mouth twice daily. [place]-3 Fatty Acids-Vitamin E 1,000 mg cap Take [...] left ankle radiographs (three (more content not included)...[facility]11-16-2022 NoteHNO ID: [id number] Author: Faina Crooks MA Service: ? Author Type: Canoe Inspector Type: Progress Notes Filed: 03/19/2022 12:15 PM [...] clots, bleeding disorders. and Plavix Faina Crooks [facility]11-16-2022 History of Present illness Narrative* Marcus [...] She subsequently started seeing another provider in [place] who recommended removal of hardware. She underwent [...] treated at a wound care clinic in [place]. Hx of RA on immunosuppressive therapy. Denies [...] WEEKS. MULTI-VITAMIN ORAL Take by mouth. Vitamin J28-Abnghml B1 5.5-12.5 mg-mcg/5 mL Liqd Take by mouth. CALCIUM CARBONATE (CALCIUM 600 ORAL) Take by mouth twice daily. [place]-3 Fatty Acids-Vitamin E 1,000 mg cap Take [...] Plavix Faina Crooks MA documented in this encounterUniversity [facility]* Diagnosis History of ankle surgery- Primary Chronic pain of left ankle Wound dehiscence Disruption of external operation (surgical) wound Decreased pedal pulses Other symptoms involving cardiovascular system documented in this encounter [facility]* Diagnosis History of ankle surgery- Primary Chronic pain of left ankle Wound dehiscence Disruption of external operation (surgical) wound 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) documented in this encounter [facility]* Diagnosis Preop examination [Z01.818 (ICD-10-CM)]- Primary Preoperative examination, unspecified 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, unspecified vessel or lesion type [I25.10 (ICD-10-CM)] Osteomyelitis of left fibula, unspecified type (HCC) [M86.9 (ICD-10-CM)] Painful orthopaedic hardware (HCC) [T84.84XA (ICD-10-CM)] Other complications due to other internal orthopedic device, implant, and graft Painful orthopaedic hardware (HCC) Other complications due to other internal orthopedic device, implant, and graft Osteomyelitis of left fibula, unspecified type (HCC) documented in this encounter [facility]* Diagnosis Post-operative state- Primary Other postprocedural status documented in this encounter [facility]* Diagnosis Post-operative state- Primary Other postprocedural status History of ankle surgery documented in this encounter [facility]* Diagnosis Post-operative state- Primary Other postprocedural status Wound dehiscence Disruption of external operation (surgical) wound documented in this encounter [facility]* Diagnosis Post-operative state- Primary Other postprocedural status documented in this encounter [facility] note* Diagnosis Lung mass- Primary Swelling, mass, or lump in chest History of breast cancer Personal history of malignant neoplasm of breast Rheumatoid arthritis with inflammatory polyarthropathy (HCC) documented in this encounter [facility] note* Diagnosis Lung nodule- Primary Other diseases of lung, not elsewhere classified Pleural effusion Unspecified pleural effusion COLE (dyspnea on exertion) Other dyspnea and respiratory abnormality documented in this encounter [facility] for referral (narrative)* Diagnostic Procedure Only (Routine) - Pending Review Specialty Diagnoses / Procedures Referred By Марина t Referred To Contact US IMAGING Diagnoses Wound dehiscence Decreased pedal pulses Procedures US ARTERIAL PVR LOWER NON-INVASIVE PHYSIOLOGIC STUDY EXTREMITY 3 LEVLS Marcus Trejo DPM [address] [place] [address] Us Imaging Referral ID Status Reason Start Date Expiration Date Visits Requested Visits Authorized [id number] Pending Review Auto-Generat ed Referral 2 04/17/2023 1 1 * Diagnostic Procedure Only (Routine) - Pending Review Specialty Diagnoses / Procedures Referred By Марина t Referred To Contact XR IMAGING Diagnoses History of ankle surgery Chronic pain of left ankle Procedures XR ANKLE GENERAL 3V AP/LAT/OBL LEFT RADEX ANKLE COMPLETE MINIMUM 3 VIEWS Marcus Trejo DPM [address] [place] [address] Xr Imaging Referral ID Status Reason Start Date Expiration Date Visits Requested Visits Authorized [id number] Pending Review Auto-Generat ed Referral 2 04/17/2023 1 1 [facility] Summary Purpose Family History No Family History Records FoundNo Family History Records FoundNo Family History Records FoundNo Family History Records Found Advance Directives No Advanced Directives Records FoundNo Advanced Directives Records FoundNo Advanced Directives Records FoundNo Advanced Directives Records Found Additional Source Comments INFORMATION SOURCE (unrecogn ized section and content) DATE CREATED AUTHOR AUTHOR'S ORGANIZ ATION 04/02/2022 [facility] DATE CREATED AUTHOR AUTHOR'S ORGANIZ ATION 09/09/2022 [facility] DATE CREATED AUTHOR AUTHOR'S ORGANIZ ATION 01/06/2023 [facility] Source Comments (unrecognize d section and content) In the event this informatio n is protected by the Federal Confidentiality of Alcohol and Drug Abuse Patient Records regulations: The Federal rules restrict any use of the information to criminally investigate or prosecute any alcohol or drug abuse patient.[facility] CenterIn the event this information is protected by the Federal Confidentiality of Alcohol and Drug Abuse Patient Records regulations: The Federal rules restrict any use of the information to criminally investigate or prosecute any alcohol or drug abuse patient.[facility] CenterIn the event this information is protected by the Federal Confidentiality of Alcohol and Drug Abuse Patient Records regulations: The Federal rules restrict any use of the information to criminally investigate or prosecute any alcohol or drug abuse patient.[facility] CenterIn the event this information is protected by the Federal Confidentiality of Alcohol and Drug Abuse Patient Records regulations: The Federal rules restrict any use of the information to criminally investigate or prosecute any alcohol or drug abuse patient.[facility] CenterIn the event this information is protected by the Federal Confidentiality of Alcohol and Drug Abuse Patient Records regulations: The Federal rules restrict any use of the information to criminally investigate or prosecute any alcohol or drug abuse patient.[facility] CenterIn the event this information is protected by the Federal Confidentiality of Alcohol and Drug Abuse Patient Records regulations: The Federal rules restrict any use of the information to criminally investigate or prosecute any alcohol or drug abuse patient.[facility] CenterIn the event this information is protected by the Federal Confidentiality of Alcohol and Drug Abuse Patient Records regulations: The Federal rules restrict any use of the information to criminally investigate or prosecute any alcohol or drug abuse patient.[facility] CenterIn the event this information is protected by the Federal Confidentiality of Alcohol and Drug Abuse Patient Records regulations: The Federal rules restrict any use of the information to criminally investigate or prosecute any alcohol or drug abuse patient.[facility] CenterIn the event this information is protected by the Federal Confidentiality of Alcohol and Drug Abuse Patient Records regulations: The Federal rules restrict any use of the information to criminally investigate or prosecute any alcohol or drug abuse patient.[facility] CenterIn the event this information is protected by the Federal Confidentiality of Alcohol and Drug Abuse Patient Records regulations: The Federal rules restrict any use of the information to criminally investigate or prosecute any alcohol or drug abuse patient.[facility] Reason for Visit (unrecogniz ed section and [...] history of malignant neoplasm of breast Procedures UT OFFICE/OUTPATIENT NEW MODERATE MDM 45-59 MINUTES [address]. [address] [place] [place] [address] [facility] [address] [place] [address] Referral ID Status Reason Start Date Expiration Date V isits Requested Visits Authorized [id number] Pending Review 09/15/2022 09/15/2023 1 1 Reason Onset Date Comments Care Coordination 09/30/2022 Lung Nodule Fo llow Up Reason Comments Results Care Teams (unrecognized sec tion and content) Associate Civil Engineer Relationship Specialty Start Date End Date Teagan Hall [address] [place] [address] PCP - General 08/13/00 Associate Civil Engineer Relationship Specialty Start Date End Date Teagan Hall [address] [place] [address] PCP - General 08/13/00 Associate Civil Engineer Relationship Specialty Start Date End Date Teagan Hall [address] [place] [address] PCP - General 08/13/00 Associate Civil Engineer Relationship Specialty Start Date End Date Teagan Hall [address] [place] [address] PCP - General 08/13/00 Associate Civil Engineer Relationship Specialty Start Date End Date Teagan Hall [address] [place] [address] PCP - General 08/13/00 Associate Civil Engineer Relationship Specialty Start Date End Date Teagan Hall [address] [place] [address] PCP - General 08/13/00 Associate Civil Engineer Relationship Specialty Start Date End Date Teagan Hall [address] [place] [address] PCP - General Family Medicine 09/16/22 Associate Civil Engineer Relationship Specialty Start Date End Date Teagan Hall [address] [place] [address] PCP - General Family Medicine 09/16/22 Associate Civil Engineer Relationship Specialty Start Date End Date Teagan Hall [address] [place] [phone] PCP - General Family Medicine 09/16/22 Associate Civil Engineer Relationship Specialty Start Date End Date Teagan Hall [address] [place] [phone] PCP - General Family Medicine 09/16/22 FOR [...] BE BASED ON THE PRIMARY CLINICAL RECORDS. [facility] [employer] [facility]. provides no warranty or guarantee of the accuracy or completeness of information in this document.
== END 2023-06-23 13:53 | disposition home or self-care (01) ==
LOC: MEDOUTP 13:53
PROVIDERS: PCP Family Medicine; Referring Provider Internal Medicine Rheumatology; Visit Provider Internal Medicine Rheumatology
DX: M05.70 Rheumatoid arthritis with rheumatoid factor of unspecified site without organ or systems involvement (principal); E03.9 Hypothyroidism, unspecified
CPT/HCPCS: 96365; 80053; 84443; 85025; J7050; J0129

== ENCOUNTER → 2023-07-05 | Outpatient (CLI) | payer MEDICARE, SELFPAY ==
[2020-06-07 08:50] VITALS: BMI 19.4
--- NOTE | 2023-07-05 12:45 | CT_ITS ---
INDICATION: PLEURAL EFFUSION EXAMINATION: CT CHEST WITH CONTRAST - CT Chest W/ Contrast Injection TECHNIQUE: Helically acquired images were obtained of the chest following IV contrast. A radiation dose optimization technique was used for this scan. IV Contrast dosage and agent: 100 cc of Isovue-300 RADIATION DOSAGE (If Supplied By Facility): CTDIvol = ( 17.47 ) mGy, DLP = ( 209.75 ) mGycm COMPARISON: Prior study dated: 08/19/2022. FINDINGS: LUNGS, PLEURA AND LARGE AIRWAYS: Pleural-based right apical density could be due to scarring. Tumor cannot be entirely excluded. Persistent moderate right pleural effusion. 4 mm right lower lobe nodule on image 60 series 4 unchanged. No left pleural effusion. No pneumothorax. THYROID: No thyroid lesions. HEART AND PERICARDIUM: Heart size is normal. No pericardial effusion. VESSELS: Thoracic aorta is not dilated. No aortic dissection. No obvious central pulmonary embolism although this study was not performed with the pulmonary embolism protocol. MEDIASTINUM AND KARTHIK: No mediastinal or hilar adenopathy. Esophagus is unremarkable. No hiatal hernia. UPPER ABDOMEN: No acute pathology. BONES: Severe compression fracture of T12 vertebra unchanged. Mild depression of the inferior endplate of L1. CT/Chest WITH Contrast IMPRESSION: 1. Persistent moderate right pleural effusion essentially unchanged. 2. Right apical pleural-based density unchanged could be due to scarring. Tumor is less likely. Electronically Signed: Javier Roach MD at 14:43 EST ,
== END | disposition home or self-care (01) ==
LOC: CT 12:44
PROVIDERS: PCP Family Medicine; Referring Provider Internal Medicine Medical Oncology; Visit Provider Internal Medicine Medical Oncology
DX: J90 Pleural effusion, not elsewhere classified (principal)
CPT/HCPCS: 71260; Q9967

== ENCOUNTER → 2023-07-19 | Outpatient (CLI) | payer MEDICARE, SELFPAY ==
[2020-06-07 08:50] VITALS: BMI 19.4
--- NOTE | 2023-07-19 | FLU_PTH ---
PATIENT: ROBERTO RASMUSSEN LOC: U#:[id number] AGE/SX: 87/F ROOM: RE07/19/[address]: WISAM Sherman : 1935 BED: DIS: 07/19/2023 SPEC #: [id number] RECD: 07/19/23 13:43 STATUS: SHAY SHAYAN #: [id number] ERNESTO: 07/19/23 00:[address]: Holli Gaona DEPT: CYTOLOGY RECD BY: Fernando Brady ENTERED: 07/19/23 13:43 SP TYPE: Fluid OTHR DR: Dr. Teagan Hall MD Tissues: THORACIC FLUID Procedures: Special Stain Group II Surgery Specimen Level IV Cytospin Fluid HEADER OPERATION: Thoracentesis PRE-OP DIAGNOSIS: Right pleural effusion TISSUE SUBMITTED: Thoracentesis fluid for cytology DIAGNOSIS CYTOLOGY Thoracentesis fluid for cytology (cytospin and cellblock) Negative for malignant cells. MARTINEZ/ 07/20/23 CYTOLOGY STUDY Slides are reviewed. CYTOLOGY GROSS Received is 80 ml of yellow- cloudy fluid labeled with the patient's name and and designated per the requisition as Right thoracentesis. Submitted for cytology preparation including cell block. mr 07/19/23 TC:5 CPT: 73400,75360
--- NOTE | 2023-07-19 11:34 | US_ITS ---
PROCEDURE: ULTRASOUND GUIDED THORACENTESIS. DATE: July 18, 2022. INDICATION: Female, 87 years old. Right pleural effusion. PHYSICIAN: Aneudy Cardenas M.D. PROCEDURE: The risks, benefits, and alternatives to the procedure were explained to the patient. The specific risks of bleeding, infection, and pneumothorax requiring chest tube insertion were discussed and accepted. Written informed consent was obtained. Ultrasonographic evaluation of the right lower pleural space was carried out. An adequate pocket was identified. The patient was placed in the sitting, upright position. The overlying skin was prepped and draped in sterile fashion. 1% lidocaine was administered subcutaneously for local anesthesia. Under ultrasound guidance, a 5 Icelandic thoracentesis needle/catheter system was advanced into the right posterior lower pleural fluid collection. Approximately 840 mL of nichole-colored fluid was drained. The catheter was removed, and a sterile dressing was applied. A specimen was collected and sent to the laboratory for analysis, as requested by the referring clinician. The patient tolerated the procedure well. A chest x-ray was ordered. US/Thoracentesis W US IMPRESSION: Ultrasound-guided right thoracentesis. Electronically Signed: Aneudy Cardenas MD at 12:38 EDT ,
[2023-07-19 11:58] VITALS: BP 140/62; PULSE 60; RESP 20; O2SAT 98
[2023-07-19 12:00] VITALS: BP 125/51; PULSE 60; RESP 20; O2SAT 97
[2023-07-19] MEDS: Lidocaine 2% (20 ml mdv) 20 ML Vial INFILT (12:04)
[2023-07-19 12:07] VITALS: BP 129/53; PULSE 61; RESP 20; O2SAT 98
--- NOTE | 2023-07-19 12:10 | RAD_ITS ---
STUDY: X-RAY CHEST REASON FOR EXAM: Female, 87 years old. Immediately post thoracentesis TECHNIQUE: AP inspiration and expiration views. COMPARISON: Comparison is made with prior study dated April 08, 2023. FINDINGS: The patient is status post right thoracentesis. No evidence of pneumothorax on the immediate post right thoracentesis examination. RAD/Chest Insp/Exp 2 View IMPRESSION: No evidence of pneumothorax. Electronically Signed: Aneudy Cardenas MD at 12:20 EDT ,
[2023-07-19 12:12] VITALS: BP 120/54; PULSE 18; RESP 60; O2SAT 99
[2023-07-19 12:15] VITALS: BP 125/53; PULSE 60; RESP 18; O2SAT 98
[2023-07-19 12:38] LABS: Cytology, Body Fluid / CSF SEE PATHOLOGY REPORT
[2023-07-19 13:16] LABS: Body Fluid Mononuclear WBC # 0.197 10^3/uL; Body Fluid Mononuclear WBC % 97.5 %; Body Fluid Polynuclear WBC # 0.005 10^3/uL; Body Fluid Polynuclear WBC % 2.5 %; Body Fluid Total Cells Counted 0.221 10^3/ul; White Blood Count/Body Fluid 0.202 10^3/uL
[2023-07-19 13:33] LABS: LDH,Body Fluid 88 Units/L (Not Establ.); Protein, Body Fluid 3.2 g/dL (Not Establ.)
[2023-07-19 14:25] LABS: Lymphocytes 74 %; Macrophages 13 %; Mesothelial Cells 2 %; Monocytes 9 %; Neutrophil (Segs) 2 %
[2023-07-19 14:26] LABS: Appearance/Body Fluid CLEAR; Auto B Fluid Analyzer BKGD Ct COUNTS W/IN LIMITS (W/IN LIMITS); Body Fluid QC Type(s) BF2Q; Color/Body Fluid YELLOW; Red Cell Count/Body Fluid 107 /mm3; Source- Body Fluid THORACENTESIS
[2023-07-20 14:22] LABS: Pathologist Comment/Body Fluid Reviewed
== END | disposition home or self-care (01) ==
PROVIDERS: PCP Family Medicine; Referring Provider Physician Assistant Medical; Visit Provider Physician Assistant Medical
DX: J90 Pleural effusion, not elsewhere classified (principal)
CPT/HCPCS: 32555; 71046; 83615; 84157; 87070; 87075; 87205; 88108; 88305; 88313; 89050

== ENCOUNTER → 2023-08-23 | Outpatient (CLI) | payer MEDICARE, SELFPAY ==
[2020-06-07 08:50] VITALS: BMI 19.4
--- NOTE | 2023-08-23 12:40 | RAD_ITS ---
STUDY: X-RAY CHEST REASON FOR EXAM: Female, 87 years old. COLE TECHNIQUE: PA and lateral views of the chest. COMPARISON: 07/19/2023 FINDINGS: Left internal jugular chest port which is unchanged. Left subclavian pacemaker which is unchanged. No change in the mass in the apex of the right lung. Moderate right pleural effusion. There is moderate cardiac enlargement. Normal mediastinum and jessica. Normal visualized pulmonary arteries. Normal visualized aortic arch and descending thoracic aorta. Multiple chronic compression fractures of the thoracic lumbar spine. Normal visualized ribs, clavicles, and shoulders. There is no demonstrated abnormality of the visualized soft tissue structures of the upper abdomen. RAD/Chest PA and Lateral IMPRESSION: Moderate right pleural effusion. Electronically Signed: Feroz Heller MD at 23:02 EDT ,
[2023-08-23 15:25] LABS: Absolute Lymphocyte Count 0.81 X10^3/uL (0.83-4.51); Absolute Neutrophil Count 7.7 X10^3/uL (2.0-7.7); Basophil# 0.01 X10^3/uL; Basophil% 0.1 % (0-1); Hematocrit 44.8 % (37-47); Hemoglobin 14.6 g/dL (12.0-15.0); Lymphocyte # 0.81 X10^3/ul (0.83-4.51); Lymphocyte % 8.3 % (19-41); Mean Corp Hgb Conc 32.6 g/dL (32-36); Mean Corpuscular Hgb 31.3 pg (27.0-32.0); Mean Corpuscular Volume 96.1 fL (81-99); Mean Platelet Vol. 11.9 fl (6.2-12.0); Monocyte# 1.15 X10^3/uL; Monocyte% 11.8 % (0-10); NRBC Flagged by Analyzer 0 % (0-5); Neutrophil # 7.69 X10^3/uL (2.7-7.7); Neutrophil % 79.3 % (47-70); Platelet Count 165 K/mm3 (150-450); RBC Distribution Width CV 13.3 % (11.6-14.6); RBC Distribution Width SD 47.3 fl (35.1-43.9); Red Blood Count 4.66 M/mm3 (4.2-5.4); White Blood Count 9.7 K/mm3 (4.4-11.0)
[2023-08-23 16:00] LABS: ALB/GLOB Ratio 0.9 RATIO (0.9-2.4); AST(SGOT) 28 U/L (15-37); Alanine Aminotransfer ALT/SGPT 43 U/L (13-56); Albumin, Serum 3.3 g/dL (3.2-5.0); Alkaline Phosphatase 78 U/L (45-117); Anion Gap 10 (5-15); BUN 30 mg/dL (7-18); BUN/Creat Ratio 21.4 RATIO (10-20); Calcium,Total 9.4 mg/dL (8.5-10.1); Chloride 104 mmol/L (98-107); EST Glomerular Filtration Rate 38 mL/min (>60); Est Glom Filt Rate - Afr Amer 46 mL/min (>60); Globulin 3.8 g/dL (2.2-4.2); Glucose 114 mg/dL (74-106); LDH 273 U/L (84-246); Potassium 4.5 mmol/L (3.5-5.1); Protein, Total 7.1 g/dL (6.4-8.2); Sodium Level 136 mmol/L (136-145)
[2023-08-23 16:11] LABS: BNP,B-Type NATRIURETIC PEPTIDE 1787.6 pg/mL (0-100)
== END | disposition home or self-care (01) ==
LOC: MTLAB 12:39
PROVIDERS: PCP Family Medicine; Referring Provider Physician Assistant Medical; Visit Provider Physician Assistant Medical
DX: M05.70 Rheumatoid arthritis with rheumatoid factor of unspecified site without organ or systems involvement (principal); I21.3 ST elevation (STEMI) myocardial infarction of unspecified site; R06.00 Dyspnea, unspecified; J90 Pleural effusion, not elsewhere classified; Z79.899 Other long term (current) drug therapy
CPT/HCPCS: 36415; 71046; 80053; 83615; 83880; 84156; 85025; 85730

== ENCOUNTER → 2023-08-24 | Outpatient (CLI) | payer MEDICARE, SELFPAY ==
[2020-06-07 08:50] VITALS: BMI 19.4
[2023-08-24 13:48] VITALS: BP 128/67; PULSE 60; RESP 18; TEMP 35.5; O2SAT 98
[2023-08-24] MEDS: Lidocaine 2% (20 ml mdv) 20 ML Vial INFILT (13:51)
[2023-08-24 13:58] VITALS: BP 133/56; PULSE 60; RESP 18; O2SAT 98
--- NOTE | 2023-08-24 14:00 | RAD_ITS ---
STUDY: X-RAY CHEST REASON FOR EXAM: Female, 87 years old. Post thoracentesis TECHNIQUE: AP inspiration and expiration views. COMPARISON: Comparison is made with prior study dated August 23, 2023. FINDINGS: Surgical clips are seen in the right axilla. The patient is status post right thoracentesis. There is no evidence of pneumothorax. Small residual pleural parenchymal changes at the right lung base. RAD/Chest Insp/Exp 2 View IMPRESSION: Status post right thoracentesis. No evidence of pneumothorax. Mild degree of residual pleural parenchymal changes at the right lung base. Electronically Signed: Aneudy Cardenas MD at 14:12 EDT ,
[2023-08-24 14:04] VITALS: BP 114/59; PULSE 60; RESP 18; O2SAT 98
--- NOTE | 2023-08-24 14:07 | PCM.OP.PRO ---
Procedure Report Date of Procedure: 08/24/23 Assessment & Plan Assessment/Plan (1) Pleural effusion, right: PLAN: PROCEDURE: Ultrasound Guided Thoracentesis ORDERING PROVIDER: Holli Gaona PA-C INDICATION: Female, 87 years old. Right pleural effusion. PROVIDER: JOAQUIN Pinto PROCEDURE: The risks, benefits, and alternatives to the procedure were explained to the patient. The specific risks of bleeding, infection, and pneumothorax requiring chest tube insertion were discussed and accepted. Written informed consent was obtained. The patient was placed in the sitting, upright position. Ultrasonographic evaluation of the bilateral lower pleural spaces was carried out. An adequate pocket was identified in the right lower pleural space.The overlying skin was prepped and draped in sterile fashion. 2% lidocaine was administered subcutaneously for local anesthesia. Under ultrasound guidance, a 5-Luxembourgish thoracentesis needle/catheter system was advanced into the right posterior lower pleural fluid collection. 570 ml of clear yellow colored fluid was drained. The catheter was removed, and a sterile dressing was applied. The patient tolerated the procedure well. A chest x-ray was ordered. IMPRESSION: Successful ultrasound-guided paracentesis of right pleural effusion. Procedures Radiology Radiology US Procedures: [id number] Thoracentesis
== END | disposition home or self-care (01) ==
PROVIDERS: PCP Family Medicine; Referring Provider Physician Assistant Medical; Visit Provider Physician Assistant Medical
DX: J90 Pleural effusion, not elsewhere classified (principal)
CPT/HCPCS: 32555; 71046

== ENCOUNTER → 2023-10-04 | Outpatient (CLI) | payer MEDICARE, SELFPAY ==
[2020-06-07 08:50] VITALS: BMI 19.4
--- NOTE | 2023-10-04 15:15 | RAD_ITS ---
STUDY: X-RAY CHEST REASON FOR EXAM: Female, 88 years old. HX OF BREAST CA TECHNIQUE: Frontal and lateral views of the chest. COMPARISON: 08/24/2023. FINDINGS: Stable appearance of left indwelling medication catheter passing through the left IJ and terminating in the lower SVC. There is hyperinflation of the lungs consistent with chronic obstructive lung disease (COPD). Stable small right pleural effusion with adjacent atelectasis or infiltrate. Left lung is clear. There is mild cardiac enlargement. Pacemaker is seen with leads terminating in the right atrium and right ventricle. Normal mediastinum and jessica. Normal visualized pulmonary arteries. Normal visualized aortic arch and descending thoracic aorta. There are diffuse degenerative changes of the visualized thoracic spine. Stable compression fractures of T12 and L1. Normal visualized ribs, clavicles, and shoulders. There is no demonstrated abnormality of the visualized soft tissue structures of the upper abdomen. There are clips in the right axilla consistent with lymphadenectomy for breast cancer. RAD/Chest PA and Lateral IMPRESSION: COPD. Stable small right pleural effusion with adjacent atelectasis or infiltrate. Electronically Signed: Poli Baron MD at 22:39 EDT ,
== END | disposition home or self-care (01) ==
PROVIDERS: PCP Family Medicine; Referring Provider Internal Medicine Medical Oncology; Visit Provider Internal Medicine Medical Oncology
DX: J90 Pleural effusion, not elsewhere classified (principal); Z85.3 Personal history of malignant neoplasm of breast
CPT/HCPCS: 71046

== ENCOUNTER → 2023-10-27 | Outpatient (CLI) | payer MEDICARE, SELFPAY ==
[2020-06-07 08:50] VITALS: BMI 19.4
[2023-10-27 15:13] LABS: Absolute Lymphocyte Count 1.12 X10^3/uL (0.83-4.51); Absolute Neutrophil Count 3.6 X10^3/uL (2.0-7.7); Basophil# 0.03 X10^3/uL; Basophil% 0.5 % (0-1); Eosinophil# 0.06 X10^3/uL; Eosinophils% 1.1 % (0-5); Hematocrit 43.7 % (37-47); Hemoglobin 15.1 g/dL (12.0-15.0); Lymphocyte # 1.12 X10^3/ul (0.83-4.51); Lymphocyte % 20.5 % (19-41); Mean Corp Hgb Conc 34.6 g/dL (32-36); Mean Corpuscular Volume 92.6 fL (81-99); Mean Platelet Vol. 11.6 fl (6.2-12.0); Monocyte# 0.68 X10^3/uL; Monocyte% 12.4 % (0-10); NRBC Flagged by Analyzer 0 % (0-5); Neutrophil # 3.57 X10^3/uL (2.7-7.7); Neutrophil % 65.3 % (47-70); Platelet Count 217 K/mm3 (150-450); RBC Distribution Width CV 14.5 % (11.6-14.6); RBC Distribution Width SD 49.4 fl (35.1-43.9); Red Blood Count 4.72 M/mm3 (4.2-5.4); White Blood Count 5.5 K/mm3 (4.4-11.0)
[2023-10-27 15:58] LABS: AST(SGOT) 26 U/L (15-37); Alanine Aminotransfer ALT/SGPT 29 U/L (13-56); Albumin, Serum 3.5 g/dL (3.2-5.0); Alkaline Phosphatase 62 U/L (45-117); Anion Gap 6 (5-15); BUN 39 mg/dL (7-18); BUN/Creat Ratio 35.1 RATIO (10-20); Calcium,Total 9.2 mg/dL (8.5-10.1); Chloride 105 mmol/L (98-107); Creatinine, Serum 1.11 mg/dL (0.55-1.02); EST Glomerular Filtration Rate 49 mL/min (>60); Est Glom Filt Rate - Afr Amer 60 mL/min (>60); Globulin 3.6 g/dL (2.2-4.2); Glucose 98 mg/dL (74-106); Protein, Total 7.1 g/dL (6.4-8.2); Sodium Level 139 mmol/L (136-145)
== END | disposition home or self-care (01) ==
PROVIDERS: PCP Family Medicine; Referring Provider Internal Medicine Rheumatology; Visit Provider Internal Medicine Rheumatology
DX: M05.70 Rheumatoid arthritis with rheumatoid factor of unspecified site without organ or systems involvement (principal); Z79.899 Other long term (current) drug therapy
CPT/HCPCS: 36415; 80053; 85025

== ENCOUNTER → 2023-11-08 | Outpatient (CLI) | payer MEDICARE, SELFPAY ==
[2020-06-07 08:50] VITALS: BMI 19.4
--- NOTE | 2023-11-08 12:54 | ECHOL_ITS ---
Version 2 Reason For Study: DYSPNEA Procedure This was a limited 2D transthoracic echocardiogram. Exam performed in department. Left Ventricle Normal LV size. D shaped septum in diastole. The left ventricular ejection fraction is 35 %. There is moderate global hypokinesis of the left ventricle. Right Ventricle ICD or pacer leads identified within the right ventricle. Mildly dilated right ventricle. Normal systolic function. Atria The left and right atria are normal. The right atrium is severely enlarged. ICD or pacer leads identified within the right atrium. Mitral Valve There is mild to moderate mitral annular calcification. Bileaflet diffuse mitral valve thickening. Tricuspid Valve Normal tricuspid valve. Pulmonary artery systolic pressure is 28 mmHg. Moderate (2+) tricuspid valve insufficiency. Aortic Valve Trisinus/trileaflet aortic valve. Mild focal aortic valve thickening. Pulmonic Valve Normal pulmonic valve. Great Vessels Normal aortic root. The pulmonary artery is normal size. Inferior vena cava collapse with sniff. The inferior vena cava is dilated. Pericardium/Pleural No pericardial effusion. MMode/2D Measurements & Calculations LVIDd: 4.7 cm IVSd: 0.96 cm LAV(MOD-bp): 85.0 ml LVIDs: 4.1 cm LVPWd: 1.4 cm LAV(MOD-bp) Indexed: 52.8 ml/m2 RVDd: 3.5 cm FS: 11.7 % LAV(MOD-sp2): 110.7 ml LAV(MOD-sp4): 59.4 ml SV(MOD-sp4): 27.2 ml LVAd ap4: 22.2 cm2 LVAd ap2: 22.9 cm2 LVLd ap4: 6.2 cm LVLd ap2: 6.5 cm EDV(MOD-sp4): 67.1 ml EDV(MOD-sp2): 69.8 ml EDV(sp4-el): 67.8 ml EDV(sp2-el): 68.8 ml LVAs ap4: 16.8 cm2 LVAs ap2: 16.9 cm2 LVLs ap4: 5.7 cm LVLs ap2: 6.2 cm ESV(MOD-sp4): 39.9 ml ESV(MOD-sp2): 39.8 ml ESV(sp4-el): 42.0 ml ESV(sp2-el): 38.9 ml EF(MOD-sp4): 40.5 % EF(MOD-sp2): 43.0 % EF(sp4-el): 38.1 % SV(MOD-sp2): 30.0 ml SV(sp4-el): 25.8 ml LA A4 area: 22.2 cm2 LA dimension(2D): 4.5 cm TAPSE: 1.4 cm RA A4 area: 39.5 cm2 Doppler Measurements & Calculations TR max bibiana: 246.0 cm/sec TR max P.2 mmHg ECHO/Echo, Limited Study Interpretation Summary The left ventricular ejection fraction is 35 %. Mildly dilated right ventricle. The right atrium is severely enlarged. Compared to previous study, the left ventricular systolic function is the same. . Ordering Physician: Sharad Londono Referring Physician: Sharad Londono Performed By: Joan Cassidy RCS
== END | disposition home or self-care (01) ==
LOC: CVS 12:54
PROVIDERS: PCP Family Medicine; Referring Provider Nurse Practitioner Family; Visit Provider Nurse Practitioner Family
DX: I42.8 Other cardiomyopathies (principal); R06.00 Dyspnea, unspecified; Z95.5 Presence of coronary angioplasty implant and graft
CPT/HCPCS: 93308

== ENCOUNTER → 2023-11-11 | Outpatient (CLI) | payer MEDICARE, SELFPAY ==
[2020-06-07 08:50] VITALS: BMI 19.4
--- NOTE | 2023-11-11 10:44 | RAD_ITS ---
STUDY: X-RAY CHEST REASON FOR EXAM: Female, 88 years old. Re-evaluate right pleural effusion size TECHNIQUE: PA and lateral views of the chest. 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 Left internal jugular chest port which is unchanged. The lungs are clear and expanded. Small right pleural effusion which is unchanged. There is moderate cardiac enlargement. Normal mediastinum and jessica. Normal visualized pulmonary arteries. Normal visualized aortic arch and descending thoracic aorta. Normal visualized thoracic spine. Normal visualized ribs, clavicles, and shoulders. There is no demonstrated abnormality of the visualized soft tissue structures of the upper abdomen. RAD/Chest PA and Lateral IMPRESSION: No change in small right pleural effusion. Electronically Signed: Feroz Heller MD at 18:06 EDT ,
[2023-11-11 12:51] LABS: BNP,B-Type NATRIURETIC PEPTIDE 433.4 pg/mL (0-100)
[2023-11-11 12:53] LABS: Anion Gap 9 (5-15); BUN 32 mg/dL (7-18); Calcium,Total 10.1 mg/dL (8.5-10.1); Chloride 103 mmol/L (98-107); Creatinine, Serum 1.23 mg/dL (0.55-1.02); EST Glomerular Filtration Rate 44 mL/min (>60); Est Glom Filt Rate - Afr Amer 53 mL/min (>60); Glucose 107 mg/dL (74-106); Potassium 4.2 mmol/L (3.5-5.1); Sodium Level 137 mmol/L (136-145)
== END | disposition home or self-care (01) ==
PROVIDERS: PCP Family Medicine; Referring Provider Nurse Practitioner Family; Visit Provider Nurse Practitioner Family
DX: I42.8 Other cardiomyopathies (principal); R06.00 Dyspnea, unspecified; I25.10 Atherosclerotic heart disease of native coronary artery without angina pectoris; Z95.0 Presence of cardiac pacemaker; Z95.5 Presence of coronary angioplasty implant and graft
CPT/HCPCS: 36415; 71046; 80048; 83880

== ENCOUNTER → 2023-12-23 | Outpatient (CLI) | payer MEDICARE, SELFPAY ==
[2020-06-07 08:50] VITALS: BMI 19.4
[2023-12-23 15:41] LABS: ALB/GLOB Ratio 0.9 RATIO (0.9-2.4); AST(SGOT) 23 U/L (15-37); Alanine Aminotransfer ALT/SGPT 20 U/L (13-56); Albumin, Serum 3.4 g/dL (3.2-5.0); Alkaline Phosphatase 67 U/L (45-117); Anion Gap 12 (5-15); BUN 47 mg/dL (7-18); BUN/Creat Ratio 36.2 RATIO (10-20); Calcium,Total 9.2 mg/dL (8.5-10.1); Chloride 101 mmol/L (98-107); Cholesterol 116 mg/dL (200); EST Glomerular Filtration Rate 41 mL/min (>60); Est Glom Filt Rate - Afr Amer 50 mL/min (>60); Globulin 3.8 g/dL (2.2-4.2); Glucose 136 mg/dL (74-106); High Density Lipoprotein 71 mg/dL; Potassium 3.6 mmol/L (3.5-5.1); Protein, Total 7.2 g/dL (6.4-8.2); Sodium Level 136 mmol/L (136-145); Triglycerides 67 mg/dL; Very Low Density Lipoprotein 13 mg/dL (5-40)
== END | disposition home or self-care (01) ==
PROVIDERS: PCP Family Medicine; Referring Provider Internal Medicine Rheumatology; Visit Provider Internal Medicine Rheumatology
DX: M05.70 Rheumatoid arthritis with rheumatoid factor of unspecified site without organ or systems involvement (principal); Z79.899 Other long term (current) drug therapy
CPT/HCPCS: 36415; 80053; 80061; 83880; 84436; 84443

== ENCOUNTER → 2024-02-01 | Outpatient (CLI) | payer MEDICARE, SELFPAY ==
[2020-06-07 08:50] VITALS: BMI 19.4
[2024-02-01 12:06] LABS: Absolute Neutrophil Count 3.7 X10^3/uL (2.0-7.7); Basophil# 0.02 X10^3/uL; Basophil% 0.4 % (0-1); Eosinophil# 0.05 X10^3/uL; Eosinophils% 0.9 % (0-5); Hematocrit 45.6 % (37-47); Hemoglobin 14.6 g/dL (12.0-15.0); Lymphocyte % 23.7 % (19-41); Mean Corpuscular Hgb 30.3 pg (27.0-32.0); Mean Corpuscular Volume 94.6 fL (81-99); Mean Platelet Vol. 11.4 fl (6.2-12.0); Monocyte# 0.39 X10^3/uL; Monocyte% 7.1 % (0-10); NRBC Flagged by Analyzer 0 % (0-5); Neutrophil % 67.5 % (47-70); Platelet Count 153 K/mm3 (150-450); RBC Distribution Width CV 13.9 % (11.6-14.6); RBC Distribution Width SD 48.3 fl (35.1-43.9); Red Blood Count 4.82 M/mm3 (4.2-5.4); White Blood Count 5.5 K/mm3 (4.4-11.0)
[2024-02-01 13:26] LABS: ALB/GLOB Ratio 0.9 RATIO (0.9-2.4); AST(SGOT) 18 U/L (15-37); Alanine Aminotransfer ALT/SGPT 21 U/L (13-56); Albumin, Serum 3.2 g/dL (3.2-5.0); Alkaline Phosphatase 66 U/L (45-117); Anion Gap 10 (5-15); BUN 39 mg/dL (7-18); BUN/Creat Ratio 30.7 RATIO (10-20); Calcium,Total 9.1 mg/dL (8.5-10.1); Chloride 103 mmol/L (98-107); Creatinine, Serum 1.27 mg/dL (0.55-1.02); EST Glomerular Filtration Rate 42 mL/min (>60); Est Glom Filt Rate - Afr Amer 51 mL/min (>60); Globulin 3.6 g/dL (2.2-4.2); Glucose 148 mg/dL (74-106); Protein, Total 6.8 g/dL (6.4-8.2); Sodium Level 135 mmol/L (136-145)
== END | disposition home or self-care (01) ==
LOC: MTLAB 10:36
PROVIDERS: PCP Family Medicine; Referring Provider Physician Assistant Medical; Visit Provider Physician Assistant Medical
DX: M05.70 Rheumatoid arthritis with rheumatoid factor of unspecified site without organ or systems involvement (principal); Z79.899 Other long term (current) drug therapy
CPT/HCPCS: 36415; 80053; 85025

== ENCOUNTER → 2024-02-15 | Outpatient (CLI) | payer MEDICARE, SELFPAY ==
[2020-06-07 08:50] VITALS: BMI 19.4
[2024-02-15 13:04] LABS: Anion Gap 8 (5-15); BUN 36 mg/dL (7-18); BUN/Creat Ratio 28.1 RATIO (10-20); Calcium,Total 9.7 mg/dL (8.5-10.1); Chloride 102 mmol/L (98-107); Creatinine, Serum 1.28 mg/dL (0.55-1.02); EST Glomerular Filtration Rate 42 mL/min (>60); Est Glom Filt Rate - Afr Amer 51 mL/min (>60); Glucose 120 mg/dL (74-106); Potassium 3.5 mmol/L (3.5-5.1); Sodium Level 137 mmol/L (136-145)
== END | disposition home or self-care (01) ==
LOC: MTLAB 10:24
PROVIDERS: PCP Family Medicine; Referring Provider Physician Assistant Medical; Visit Provider Physician Assistant Medical
DX: I42.8 Other cardiomyopathies (principal)
CPT/HCPCS: 36415; 80048

== ENCOUNTER → 2024-06-02 | Outpatient (CLI) | payer MEDICARE, SELFPAY ==
[2020-06-07 08:50] VITALS: BMI 19.4
[2024-06-02 12:53] LABS: Absolute Lymphocyte Count 0.71 X10^3/uL (0.83-4.51); Absolute Neutrophil Count 3.4 X10^3/uL (2.0-7.7); Basophil# 0.03 X10^3/uL; Basophil% 0.6 % (0-1); Eosinophil# 0.04 X10^3/uL; Eosinophils% 0.9 % (0-5); Hematocrit 45.2 % (37-47); Hemoglobin 14.9 g/dL (12.0-15.0); Lymphocyte # 0.71 X10^3/ul (0.83-4.51); Lymphocyte % 15.2 % (19-41); Mean Platelet Vol. 11.2 fl (6.2-12.0); Monocyte# 0.49 X10^3/uL; Monocyte% 10.5 % (0-10); NRBC Flagged by Analyzer 0 % (0-5); Neutrophil # 3.37 X10^3/uL (2.7-7.7); Neutrophil % 72.4 % (47-70); Platelet Count 163 K/mm3 (150-450); RBC Distribution Width CV 15.5 % (11.6-14.6); RBC Distribution Width SD 54.7 fl (35.1-43.9); Red Blood Count 4.66 M/mm3 (4.2-5.4); White Blood Count 4.7 K/mm3 (4.4-11.0)
[2024-06-02 14:09] LABS: ALB/GLOB Ratio 1.1 RATIO (0.9-2.4); AST(SGOT) 17 U/L (15-37); Alanine Aminotransfer ALT/SGPT 26 U/L (13-56); Albumin, Serum 3.5 g/dL (3.2-5.0); Alkaline Phosphatase 66 U/L (45-117); Anion Gap 9 (5-15); BUN 34 mg/dL (7-18); BUN/Creat Ratio 28.3 RATIO (10-20); Calcium,Total 9.6 mg/dL (8.5-10.1); Chloride 106 mmol/L (98-107); EST Glomerular Filtration Rate 45 mL/min (>60); Est Glom Filt Rate - Afr Amer 55 mL/min (>60); Globulin 3.2 g/dL (2.2-4.2); Glucose 114 mg/dL (74-106); Potassium 4.3 mmol/L (3.5-5.1); Protein, Total 6.7 g/dL (6.4-8.2); Sodium Level 137 mmol/L (136-145)
== END | disposition home or self-care (01) ==
PROVIDERS: PCP Family Medicine; Referring Provider Internal Medicine Rheumatology; Visit Provider Internal Medicine Rheumatology
DX: M05.70 Rheumatoid arthritis with rheumatoid factor of unspecified site without organ or systems involvement (principal); H53.2 Diplopia; Z79.899 Other long term (current) drug therapy
CPT/HCPCS: 36415; 80053; 84238; 85025

== ENCOUNTER → 2024-06-14 | Outpatient (CLI) | payer MEDICARE, SELFPAY ==
[2020-06-07 08:50] VITALS: BMI 19.4
[2024-06-14] VITALS (7 sets, daily range): BP systolic 108–132; BP diastolic 49–70; PULSE 69–71; RESP 16; O2SAT 91–97
--- NOTE | 2024-06-14 12:06 | MRI_ITS ---
PROCEDURE: BRAIN W/WO CONTRAST also with attention to the orbits. REASON FOR EXAM: Diplopia and disequilibrium. TECHNIQUE: Multiplanar, multisequence MRI of the brain without and with intravenous gadolinium-based contrast. CONTRAST: IV 15 ml Dotarem. COMPARISON: Head CT of 01/03/2023. FINDINGS: Diffusion-weighted images demonstrate no area of restricted diffusion. Moderate generalized cerebral and cerebellar atrophy is seen, with symmetric ventricular enlargement consistent with the degree of atrophy. No extra-axial fluid collection is seen. No orbital pathology is noted. Internal auditory canals appear symmetric and within the normal range. No abnormal mass or area of abnormal postcontrast enhancement is seen within either internal auditory canal. Mild mucosal thickening is seen of the bilateral ethmoid air cells. No air-fluid level is noted. The remaining paranasal sinuses appear clear, as do the mastoid air cells. Following intravenous administration of contrast, no area of abnormal enhancement is seen. MRI/Brain W/WO Contrast IMPRESSION: 1. Moderate generalized cerebral and cerebellar atrophy. 2. No acute intracranial process is seen. 3. No orbital pathology is noted. 4. Mild chronic appearing paranasal sinus disease. Reading Location: [id number]
== END | disposition home or self-care (01) ==
LOC: MRI 11:30
PROVIDERS: PCP Family Medicine; Referring Provider Ophthalmology; Visit Provider Ophthalmology
DX: H53.2 Diplopia (principal)
CPT/HCPCS: 70553; A9575

== ENCOUNTER → 2024-07-04 | Outpatient (CLI) | payer MEDICARE, SELFPAY ==
[2020-06-07 08:50] VITALS: BMI 19.4
--- NOTE | 2024-07-04 09:25 | RAD_ITS ---
EXAM: XR Chest, 2 Views CLINICAL INDICATION: TECHNIQUE: Frontal and lateral views of the chest. COMPARISON: No relevant prior studies available. FINDINGS: LUNGS AND PLEURAL SPACES: Bibasilar atelectasis or pneumonia. HEART: Cardiomegaly with mild congestion. MEDIASTINUM: Unremarkable. Normal mediastinal contour. BONES/JOINTS: Unremarkable. No acute fracture. TUBES, LINES AND DEVICES: Left-sided cardiac pacemaker. RAD/Chest PA and Lateral IMPRESSION: 1. Bibasilar atelectasis or pneumonia. 2. Cardiomegaly with mild congestion. Reading Location[facility]
[2024-07-04 12:29] LABS: Absolute Lymphocyte Count 0.88 X10^3/uL (0.83-4.51); Absolute Neutrophil Count 3.7 X10^3/uL (2.0-7.7); Basophil# 0.04 X10^3/uL; Basophil% 0.7 % (0-1); Eosinophil# 0.08 X10^3/uL; Eosinophils% 1.5 % (0-5); Hematocrit 47.4 % (37-47); Hemoglobin 15.5 g/dL (12.0-15.0); Lymphocyte # 0.88 X10^3/ul (0.83-4.51); Lymphocyte % 16.3 % (19-41); Mean Corp Hgb Conc 32.7 g/dL (32-36); Mean Corpuscular Hgb 32.1 pg (27.0-32.0); Mean Corpuscular Volume 98.1 fL (81-99); Mean Platelet Vol. 11.2 fl (6.2-12.0); NRBC Flagged by Analyzer 0 % (0-5); Neutrophil # 3.68 X10^3/uL (2.7-7.7); Neutrophil % 68.3 % (47-70); Platelet Count 155 K/mm3 (150-450); RBC Distribution Width CV 14.6 % (11.6-14.6); RBC Distribution Width SD 52.8 fl (35.1-43.9); Red Blood Count 4.83 M/mm3 (4.2-5.4); White Blood Count 5.4 K/mm3 (4.4-11.0)
[2024-07-04 12:58] LABS: Anion Gap 15 (5-15); BUN 34 mg/dL (4-19); BUN/Creat Ratio 28.7 RATIO (10-20); Calcium,Total 9.2 mg/dL (7.6-11.0); Carbon Dioxide 20.9 mmol/L (21.0-32.0); Chloride 101 mmol/L (98-108); Creatinine, Serum 1.17 mg/dL (0.70-1.20); EST Glomerular Filtration Rate 45 (>60); Glucose 90 mg/dL (70-99); Potassium 4.1 mmol/L (3.3-5.1); Pro- Brain NATRIURETIC PEPTIDE 12167 pg/mL (<=1800); Sodium Level 137 mmol/L (133-145)
[2024-07-09 17:07] LABS: Acetylcholine Receptor Binding < 0.03 nmol/L (0.00-0.24)
== END | disposition home or self-care (01) ==
LOC: MTLAB 09:25
PROVIDERS: Nurse Practitioner Family; PCP Family Medicine; Referring Provider Ophthalmology; Visit Provider Ophthalmology
DX: H53.2 Diplopia (principal); I48.0 Paroxysmal atrial fibrillation; I42.8 Other cardiomyopathies; R06.02 Shortness of breath; Z87.09 Personal history of other diseases of the respiratory system; R53.83 Other fatigue
CPT/HCPCS: 36415; 71046; 80048; 83880; 84238; 85025

== ENCOUNTER → 2024-07-22 | Outpatient (CLI) | payer MEDICARE, SELFPAY ==
[2020-06-07 08:50] VITALS: BMI 19.4
--- NOTE | 2024-07-21 11:02 | RAD_ITS ---
EXAM: XR Chest, 2 Views CLINICAL INDICATION: RECENT PNEUMONIA, HX PLEURAL EFFUSIONS, HX CHF TECHNIQUE: Frontal and lateral views of the chest. COMPARISON: XR Chest dated 07/04/2024 FINDINGS: LUNGS AND PLEURAL SPACES: Bibasilar atelectasis or pneumonia. Small bilateral pleural effusions, unchanged. HEART: Cardiomegaly with mild congestion. MEDIASTINUM: Unremarkable. Normal mediastinal contour. BONES/JOINTS: Unremarkable. No acute fracture. TUBES, LINES AND DEVICES: Left-sided cardiac pacemaker. RAD/Chest PA and Lateral IMPRESSION: 1. Bibasilar atelectasis or pneumonia. 2. Cardiomegaly with mild congestion. 3. Small bilateral pleural effusions, unchanged. Reading Location: [facility]
[2024-07-22 11:21] LABS: Absolute Lymphocyte Count 0.69 X10^3/uL (0.83-4.51); Absolute Neutrophil Count 6.2 X10^3/uL (2.0-7.7); Basophil# 0.03 X10^3/uL; Basophil% 0.4 % (0-1); Eosinophil# 0.02 X10^3/uL; Eosinophils% 0.3 % (0-5); Hematocrit 48.4 % (37-47); Hemoglobin 16.1 g/dL (12.0-15.0); Lymphocyte # 0.69 X10^3/ul (0.83-4.51); Lymphocyte % 9.2 % (19-41); Mean Corp Hgb Conc 33.3 g/dL (32-36); Mean Corpuscular Hgb 32.1 pg (27.0-32.0); Mean Corpuscular Volume 96.6 fL (81-99); Mean Platelet Vol. 11.2 fl (6.2-12.0); Monocyte# 0.61 X10^3/uL; Monocyte% 8.1 % (0-10); NRBC Flagged by Analyzer 0 % (0-5); Neutrophil # 6.17 X10^3/uL (2.7-7.7); Neutrophil % 81.7 % (47-70); Platelet Count 122 K/mm3 (150-450); RBC Distribution Width CV 14.3 % (11.6-14.6); RBC Distribution Width SD 50.8 fl (35.1-43.9); Red Blood Count 5.01 M/mm3 (4.2-5.4); White Blood Count 7.5 K/mm3 (4.4-11.0)
[2024-07-22 11:37] LABS: Anion Gap 15 (5-15); BUN 32 mg/dL (4-19); BUN/Creat Ratio 27.6 RATIO (10-20); Calcium,Total 9.2 mg/dL (7.6-11.0); Carbon Dioxide 20.1 mmol/L (21.0-32.0); Chloride 95 mmol/L (98-108); Creatinine, Serum 1.17 mg/dL (0.70-1.20); EST Glomerular Filtration Rate 45 (>60); Glucose 182 mg/dL (70-99); Potassium 4.9 mmol/L (3.3-5.1); Pro- Brain NATRIURETIC PEPTIDE 16925 pg/mL (<=1800); Sodium Level 130 mmol/L (133-145)
== END | disposition home or self-care (01) ==
LOC: RAD 10:40 → LAB 10:43
PROVIDERS: PCP Family Medicine; Referring Provider Physician Assistant Medical; Visit Provider Physician Assistant Medical
DX: R06.02 Shortness of breath (principal); I42.8 Other cardiomyopathies; Z87.09 Personal history of other diseases of the respiratory system
CPT/HCPCS: 36415; 71046; 80048; 83880; 85025

== ENCOUNTER 2024-07-23 14:25 | Emergency (ER) | payer MEDICARE, SELFPAY ==
[2020-06-07 08:50] VITALS: BMI 19.4
[2024-07-23 14:26] VITALS: BP 107/56; PULSE 62; RESP 15; TEMP 36.1; O2SAT 97
[2024-07-23 14:28] VITALS: BMI 21.7
[2024-07-23 14:41] VITALS: BP 107/59; BP 110/58; BP 115/61; PULSE 60
--- NOTE | 2024-07-23 14:41 | CT_ITS ---
PROCEDURE: SPINE CERVICAL WITHOUT CONTRAS 07/23/2024 REASON FOR EXAM: INJURY/PAIN TECHNIQUE: Cervical spine CT without contrast. Coronal and Sagittal reconstruction series were provided. One or more dose reduction techniques were used (e.g., Automated exposure control, adjustment of the mA and/or kV according to patient size, use of iterative reconstruction technique RADIATION DOSE SUMMARY: CTDlvol: 50.01 mGy DLP: 1104.49 mGycm COMPARISON: Cervical CT examination of 08/19/2022 FINDINGS: Alignment: Stable appearance of anterior subluxation of C4 upon C5 and of C5 upon C6, compared with the prior examination 08/19/2022.. Vertebrae: Degenerative changes are again seen at the atlantodental articulation. Disc space narrowing is again moderately severe in the C6-C7 level. Prominent mid to lower cervical spine posterior facet hypertrophy is again seen. No significant spinal canal stenosis is noted. No fracture site is seen. Soft Tissues: No prevertebral soft tissue swelling is noted. At the lung apices, again seen is a prominent asymmetric area of right apical pleural-parenchymal scarring, fairly similar to the prior examination. CT/Spine Cervical without Contras IMPRESSION: 1. No fracture is noted. 2. Stable subluxation compared to the prior CT examination of 08/19/2022. 3. Degenerative changes are again noted, fairly similar to the prior examjohnnao nNena Reading Location: [address]
--- NOTE | 2024-07-23 14:41 | CT_ITS ---
PROCEDURE: BRAIN/HEAD WITHOUT CONTRAST 07/23/2024 REASON FOR EXAM: INJURY/PAIN TECHNIQUE: CT head without contrast, with sagittal and coronal reconstructed images: COMPARISON: Head CT 01/03/2023 and brain MRI 06/14/2024 FINDINGS: Mild generalized cerebral cerebellar atrophy is seen, with symmetric ventricular enlargement consistent with the degree of atrophy. Bilateral cerebral white matter hypodensities are most consistent with chronic ischemic changes of small-vessel disease. No extra-axial fluid collection is noted. No orbital pathology is seen. The visualized paranasal sinuses appear clear, as do the mastoid air cells. No fracture is evident. CT/Brain/Head without Contrast IMPRESSION: 1. No intracranial hemorrhage or other acute process is seen. 2. No fracture site is evident. Reading Location: [id number]
--- NOTE | 2024-07-23 14:42 | EDS_ITS ---
HPI History of Present Illness Chief Complaint: Fall Detail of Chief Complaint: Fall, forehead and face trauma, neck pain and daughter requested UA because Informant: patient and family Onset/Context/Timing Onset: Days Context: Sudden Onset Timing: Continuous (Pain has been continuous since falls) and Intermittent Quality: HPI narrative for complete detail Location: Incidences of occurred at home. Lives alone Current Severity: Mild Maximum Severity: Moderate Worsened by: Movement Relieved by: Nothing Associated Symptoms Associated Symptoms: Nothing Narrative Narrative: Patient is an 88-year-old woman. She is a poor informant. Daughter was the primary informant. Patient's had several falls over the past several days. Since she has had the fall she is complained of neck pain. Today daughter was concerned because he is on Eliquis and has bilateral periorbital ecchymosis. She does complain of headache. The headache is worse than what has been the past couple of days. She is forgetful. She has history of diplopia. Patient denies nausea or vomiting. Patient denies chest pain or shortness of breath. Patient denies urologic symptoms however she does not have a good memory. Prior similar symptoms: Yes Recent Illness/Hospitalization: No PFSH PFSH Medical History Atrial tachycardia Presence of permanent cardiac pacemaker CKD (chronic kidney disease) stage 3, GFR 30-59 ml/min Non-rheumatic mitral regurgitation Mitral valve insufficiency Rheumatoid arthritis STEMI (ST elevation myocardial infarction) Atherosclerosis of coronary artery of [place] heart without angina pectoris History of coronary artery stent placement (04/12/20) Osteomyelitis of left lower extremity 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 Colonization status Contamination 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 Venous insufficiency (chronic) (peripheral) Delayed wound healing Other specified peripheral vascular diseases Non-pressure chronic ulcer of unspecified part of left lower leg with fat layer exposed Staph infection Left ankle swelling History of malignant neoplasm of right breast Fx cervical vert NOS-closed Fx clavicle Arthritis Malignant neoplasm of right female breast Osteopenia Home Medications ?Medication ?Instructions ?Recorded ?Last Taken ?Type abatacept 50 mg/0.4 mL 750 mg IV QMONTH arthritis 0 12/13/19 Unknown History subcutaneous syringe acetaminophen 500 mg tablet 1,000 mg PO BID pain 04/1205/16/20 History lorazepam 0.5 mg tablet 0.25 mg PO QHS PRN anxiety 1 Unknown History levothyroxine 75 mcg tablet 100 mcg PO DAILY thyroid 1 06/07/22 05/07/23 History calcium carbonate 1,000 mg PO DAILY@0800 PRN 1 06/08/22 Unknown History indigestion apixaban 2.5 mg tablet 2.5 mg PO BID #180 tabs 10/01 08/24 Unknown Rx mirtazapine 30 mg tablet 30 mg PO DAILY 01/21/24 Unkn own History sacubitril 24 mg-valsartan 26 mg 1 tab PO BID #180 tab s 01/21/24 Unknown Rx tablet (Entresto) dapagliflozin propanediol 10 mg 10 mg PO QAM #90 tabs 02/01/24 Unknown Rx tablet (Farxiga) metoprolol tartrate 50 mg tablet 50 mg PO BID #180 tab s 05/01/24 Unknown Rx amiodarone 200 mg tablet 200 mg PO DAILY #90 tabs Unknown Rx spironolactone 25 mg tablet 25 mg PO QAM #90 tabs 06/03 12/25 Unknown Rx furosemide 40 mg tablet 40 mg PO .COMPLEX #30 tabs 0 07/03/24 Unknown Rx Allergy/AdvReac Type Severity Reaction Status Date / Time ticagrelor (From Brilinta) AdvReac Severe Severe Verified 07/23/24 14:26 dyspnea on exertion Family History Father Clotting disorder Heart disease Surgical History History of cardioversion (01/27/23) History of ankle surgery History of left heart catheterization (LHC) (~01/02/21) Presence of coronary angioplasty implant and graft (~04/12/20) History of arthroplasty of left ankle History of tubal ligation History of mastectomy Social History Smoking Status: Never smoker alcohol intake: never substance use type: does not use caffeine: Yes ROS ROS ED Review of Systems ROS Unobtainable: due to mental status Constitutional Constitutional ED: Denies chills, fever(s) or subjective Eyes Eyes: Reports diplopia; Denies blurry vision or change in vision ENT ENT ED: Denies ear pain, rhinorrhea or sore throat Cardiovascular Cardiovascular: Denies chest pain, orthopnea, palpitations or paroxysmal nocturnal dyspnea Respiratory/Chest Respiratory/Chest: Reports dyspnea and dyspnea on exertion; Denies cough, orthopnea or paroxysmal nocturnal dyspnea Gastrointestinal Gastrointestinal: Denies abdominal pain or melena Genitourinary Genitourinary ED: Denies dysuria, hematuria or urinary frequency Musculoskeletal Musculoskeletal: Denies back pain or neck pain Integumentary Reports other Details: Periorbital bruising Neurologic Neurologic: Reports headache(s) Hematologic/Lymphatic Hematologic/Lymphatic: Reports easy bruising EXAM Physical Exam Const Vital Signs: 07/23/24 14:26 07/23/24 14:38 07/23/24 14:41 Temperature 97 F L Temperature Source Temporal Pulse Rate 62 Pulse Rate [Lying] 60 Pulse Rate [Sitting (for 1 minute prior to obtaining)] 60 Pulse Rate [Standing (for 1 minute prior to obtaining)] 60 Respiratory Rate 15 Respiratory Effort Short of Breath Respiratory Depth Normal Respiratory Pattern Normal Blood Pressure 107/56 L Blood Pressure [Lying] 115/61 Blood Pressure [Sitting (for 1 minute prior to obtaining)] 110/58 L Blood Pressure [Standing (for 1 minute prior to obtaining)] 107/59 L Blood Pressure Mean 73 Blood Pressure Mean [Lying] 79 Blood Pressure Mean [Sitting (for 1 minute prior to obtaining)] 75 Blood Pressure Mean [Standing (for 1 minute prior to obtaining)] 75 Pulse Ox 97 Oxygen Delivery Method Room Air Room Air 07/23/24 16:14 Temperature Temperature Source Pulse Rate Pulse Rate [Lying] Pulse Rate [Sitting (for 1 minute prior to obtaining)] Pulse Rate [Standing (for 1 minute prior to obtaining)] Respiratory Rate Respiratory Effort Respiratory Depth Respiratory Pattern Blood Pressure 99/65 Blood Pressure [Lying] Blood Pressure [Sitting (for 1 minute prior to obtaining)] Blood Pressure [Standing (for 1 minute prior to obtaining)] Blood Pressure Mean 76 Blood Pressure Mean [Lying] Blood Pressure Mean [Sitting (for 1 minute prior to obtaining)] Blood Pressure Mean [Standing (for 1 minute prior to obtaining)] Pulse Ox Oxygen Delivery Method Positive well nourished and well developed General Appearance ED: well developed and NAD HEENT Reports moist mucous membranes HEENT Narrative: Ears normal. TMs normal. Nares patent. No septal deviation hematoma. No epistaxis. There is abrasions bruising to the nose near the bridge. There is no step-off of the infraorbital rim or hyperesthesia infraorbital nerve. She did not denies diplopia and has no entrapment with upper gaze. Eyes PERRL General Eye ED: Negative for pale conjunctiva or scleral icterus Neck no lymphadenopathy and no JVD Neck Narrative: Patient has posterior midline pain the entire cervical spine. Chest Wall inspection of chest normal and palpation of chest normal Resp No clear to auscultation bilaterally Resp Narrative: Crackles noted at the bases. Cardio regular rate and no murmurs Rhythm: abnormal rhythm irregularly irregular GI normal to inspection, nondistended, normoactive bowel sounds, non-tender, non- distended and no masses; Negative for hepatosplenomegaly GI Narrative: There is no hepatosplenomegaly. Palpation: soft; Negative for mass Back/Spine Back/Spine Narrative: Evidence of skin lesions, seborrheic keratosis Extremity Negative for normal to inspection Extremity Narrative: Discoloration with lymphedema right and left lower extremity. Discoloration is chronic. Neuro No oriented x3 and CN's II-XII intact bilaterally Neuro Narrative: There is no clonus or Babinski sign noted. Sensorium / Orientation: Negative for alert Psych mental status grossly normal Skin Skin Narrative: Patient has changes consistent with rheumatoid arthritis of her hands. There is bruising noted. MDM MDM MDM Narrative Medical decision making narrative: CT of the head was obtained to rule out intracranial bleed i.e. subdural hematoma, epidural hematoma, traumatic subarachnoid hemorrhage or intraparenchymal contusion in light of the fact that she is on Eliquis with head trauma. There is a concern potentially for basilar skull fracture since she has been by orbital ecchymosis. There is no Eaton sign. There is no CSF otorrhea or rhinorrhea. C-spine was obtained since C-spine cannot be cleared and her pain started after falls. Daughter is concerned of UTI. Will obtain UA as well as baseline blood work i.e. BMP and CBC. History & Record Review Additional record(s) reviewed:: Prior outpatient record (Patient has seen Dr. Matteo Hanks for malignancy of right breast. She also has had pulmonary effusions requiring thoracentesis. She is seen by cardiac.), Prior ED visit and Prior labs Lab Data Attestation: I reviewed the patient's lab results. Lab results narrative: White count is elevated 12.9. H&H 15.9 and 47.1 which is elevated. There is a slight shift on the differential. UA reveals no evidence of infection. She is spilling glucose. She also has proteinuria, hematuria and macro. Micro is unremarkable. Labs: Laboratory Results - last 24 hr 07/23/24 07/23/24 14:54 14:59 WBC 12.9 H RBC 4.97 Hgb 15.9 H Hct 47.1 H MCV 94.8 MCH 32.0 MCHC 33.8 RDW Std Deviation 50.2 H RDW Coeff of Sharad 14.4 Plt Count 111 L MPV 11.6 Immature Gran % (Auto) 0.500 Neut % (Auto) 84.1 H Lymph % (Auto) 5.7 L [place] % (Auto) 9.5 Eos % (Auto) 0.0 Baso % (Auto) 0.2 Absolute Neuts (auto) 10.8 H Absolute Lymphs (auto) 0.73 L Nucleated RBC % 0 Sodium 128 L Potassium 4.7 Chloride 94 L Carbon Dioxide 18.3 L Anion Gap 15 BUN 41 H Creatinine 1.23 H Estim Creat Clear Calc 29.00 L Est GFR (MDRD) Non-Af 43 L BUN/Creatinine Ratio 33.3 H Glucose 109 H Calcium 9.2 Urine Color Yellow Urine Clarity Clear Urine pH 5.0 Ur Specific [place] 1.015 Urine Protein 30 H Urine Glucose (UA) 1000 H Urine Ketones Negative Urine Occult Blood 25 H Urine Nitrite Negative Urine Bilirubin Negative Urine Urobilinogen Normal Ur Leukocyte Esterase Negative Urine RBC 0-5 SEEN Urine WBC 0 SEEN Ur Squamous Epith Cells 0-5 SEEN Urine Bacteria 0 SEEN Urine Mucus 0 SEEN Radiography Diagnostic Testing: Clinical Impression(s) from Imaging Studies Brain CT 07/23/24 14:41 IMPRESSION: 1. No intracranial hemorrhage or other acute process is seen. 2. No fracture site is evident. Reading Location: [id number] Cervical Spine CT 07/23/24 14:41 IMPRESSION: 1. No fracture is noted. 2. Stable subluxation compared to the prior CT examination of 08/19/2022. 3. Degenerative changes are again noted, fairly similar to the prior examination. Reading Location: [id number] CT of the head without contrast reveals no evidence of epidural hematoma, subdural hematoma, traumatic subarachnoid hemorrhage or intraparenchymal contusion. There is significant atrophy possible old prior left sided stroke. There is no fluid noted in the sinuses. There is no evidence of fracture. Cervical spine reveals significant chronic degenerative changes and anterior spondylolisthesis of C4 on 5. There is slight area of radiolucency posteriorly. Will await formal read by radiologist. CT of the head was interpreted radiologist. Interpretation was reviewed at 1556. Treatment and Re-Evaluation :: Patient and granddaughter were informed of results at 1815. Plan is to discharge to home. Granddaughter feels comfortable taking her home. Discharge Plan Triage Chief Complaint: Fall ED Provider: Anant Cooper Dx/Rx/DC Orders Clinical Impression: CHI (closed head injury), History of malignant neoplasm of right breast, History of coronary artery stent placement, Anticoagulant long-term use, Frequent falls, Cervical myofascial strain, Traumatic periorbital ecchymosis of left eye, Traumatic periorbital ecchymosis of right eye Instructions: ED Head Injury (Adult), ED Neck Sprain or Strain Prescriptions: No Action lorazepam 0.5 mg tablet 0.25 mg PO QHS PRN (Reason: anxiety) mirtazapine 30 mg tablet 30 mg PO DAILY Entresto 24-26 mg tablet 1 tab PO BID Qty: 180 3RF metoprolol tartrate 50 mg tablet 50 mg PO BID Qty: 180 3RF calcium carbonate 200 mg calcium (500 mg) tablet,chewable 1,000 mg PO DAILY@0800 PRN (Reason: indigestion) abatacept 50 MG/0.4 ML syringe 750 mg IV QMONTH Rx Instructions: every 4 weeks acetaminophen 500 MG tablet 1,000 mg PO BID levothyroxine 75 mcg tablet 100 mcg PO DAILY apixaban 2.5 mg tablet 2.5 mg PO BID Qty: 180 3RF dapagliflozin propanediol [Farxiga] 10 mg tablet 10 mg PO QAM Qty: 90 3RF amiodarone 200 mg tablet 200 mg PO DAILY Qty: 90 3RF spironolactone 25 mg tablet 25 mg PO QAM Qty: 90 3RF furosemide 40 mg tablet 40 mg PO .COMPLEX Qty: 30 3RF Rx Instructions: 40 mg orally Daily for 3 days, then keep rest of RX for prn use.; Primary Care Provider: Teagan Hall Referrals: Teagan Hall MD [Primary Care Provider] - As Needed Print Language: [place]ian Disposition Disposition: Home, Self Care
[2024-07-23 15:03] LABS: Absolute Lymphocyte Count 0.73 X10^3/uL (0.83-4.51); Absolute Neutrophil Count 10.8 X10^3/uL (2.0-7.7); Basophil# 0.02 X10^3/uL; Basophil% 0.2 % (0-1); Hematocrit 47.1 % (37-47); Hemoglobin 15.9 g/dL (12.0-15.0); Lymphocyte # 0.73 X10^3/ul (0.83-4.51); Lymphocyte % 5.7 % (19-41); Mean Corp Hgb Conc 33.8 g/dL (32-36); Mean Corpuscular Volume 94.8 fL (81-99); Mean Platelet Vol. 11.6 fl (6.2-12.0); Monocyte# 1.23 X10^3/uL; Monocyte% 9.5 % (0-10); NRBC Flagged by Analyzer 0 % (0-5); Neutrophil # 10.84 X10^3/uL (2.7-7.7); Neutrophil % 84.1 % (47-70); Platelet Count 111 K/mm3 (150-450); RBC Distribution Width CV 14.4 % (11.6-14.6); RBC Distribution Width SD 50.2 fl (35.1-43.9); Red Blood Count 4.97 M/mm3 (4.2-5.4); White Blood Count 12.9 K/mm3 (4.4-11.0)
[2024-07-23 15:56] LABS: Anion Gap 15 (5-15); BUN 41 mg/dL (4-19); BUN/Creat Ratio 33.3 RATIO (10-20); Calcium,Total 9.2 mg/dL (7.6-11.0); Carbon Dioxide 18.3 mmol/L (21.0-32.0); Chloride 94 mmol/L (98-108); Creatinine, Serum 1.23 mg/dL (0.70-1.20); EST Glomerular Filtration Rate 43 (>60); Glucose 109 mg/dL (70-99); Potassium 4.7 mmol/L (3.3-5.1); Sodium Level 128 mmol/L (133-145)
--- NOTE | 2024-07-23 16:00 | CM.ED ---
Social Work: Date of referral: 07/23/2024 Reason for referral: Resources requested Referred by: ED nurse Patient provided consent for social work visit. At patient's bedside in the beginning was patient's granddaughter Mary and later in the assessment, patient's son Cesar came in. Patient has been experiencing numerous falls and family is concerned. Patient lives at home alone in a two-story house with 14 stairs on the inside which is where patient's bedroom is. Patient also has a basement which patient stated she goes to every now and then. There are 3 steps leading in/out of house. All stairs have railings that patient can hold onto while ambulating. Patient stated normally, she is able to navigate the stairs without difficulty however due to recent increased falls, one of patient's daughters thought patient should sleep downstairs on the couch to avoid the stairs. Patient stated she was not comfortable, stated her covers got tangled, causing patient to fall on the floor. Patient currently has a standard cane, a standard walker, a grab bar in her shower, a RTS, a BSC, and a wheelchair. liner worker reviewed fall prevention education both verbally and written, and also provided verbal and written information for Emergency Response Devices that can work both inside and outside of the home and that can also be requested to have a fall detection sensor. Patient is stated to have a strong family support system at this time. Miriam Cano, ALARM SIGNAL OPERATOR, FINISH MOLDER
--- NOTE | 2024-07-23 16:04 | ED.RN ---
Patient taken to bathroom via WC. Attempted to obtain urine sample, but patient urinated behind hat.
[2024-07-23 16:14] VITALS: BP 99/65
--- NOTE | 2024-07-23 16:52 | CASEMGMT ---
Social Work: HPOA and Living Will confirmed to be scanned into patient's EMR. Miriam Cano, MAINTENANCE TECHNICIAN 3RD SHIFT, SEWER
[2024-07-23 17:42] LABS: Bacteria 0 SEEN /hpf (None Seen); Mucous, Urine 0 SEEN /hpf (<or=2+); White Blood Cells 0 SEEN /hpf (0-5)
[2024-07-23 17:44] LABS: Color, Urine Yellow (Yellow); Glucose, Dipstick 1000 mg/dl (Normal); Ketone-Dipstick Negative (Negative); Leukocyte Esterase-Dipstick Negative /ul (Negative); Nitrite-Dipstick Negative (Negative); Occult Blood-Urine 25 /ul (Negative); Protein-Dipstick 30 mg/dl (Negative); Specific Gravity, Urine 1.015 (1.002-1.030); Urine Bilirubin Dipstick Negative (Negative); Urine Clarity Clear (Clear); Urine Urobilinogen Normal (Normal)
[2024-07-23 17:51] LABS: Red Blood Cells-Urine 0-5 SEEN /hpf (0-5); Squamous Epithelial Cells - UA 0-5 SEEN /hpf (5-10)
[2024-07-23 18:00] VITALS: PULSE 60; RESP 14; O2SAT 97
[2024-07-23 18:23] VITALS: BP 99/65; PULSE 60; RESP 14; TEMP 36.1; O2SAT 97
== END 2024-07-23 18:24 | disposition home or self-care (01) ==
PROVIDERS: Emergency Provider Emergency Medicine; PCP Family Medicine; Visit Provider Emergency Medicine
DX: S09.90XA Unspecified injury of head, initial encounter (principal); N18.30 Chronic kidney disease, stage 3 unspecified; I25.10 Atherosclerotic heart disease of native coronary artery without angina pectoris; S16.1XXA Strain of muscle, fascia and tendon at neck level, initial encounter; S05.8X1A Other injuries of right eye and orbit, initial encounter; S05.8X2A Other injuries of left eye and orbit, initial encounter; I25.2 Old myocardial infarction; Z95.5 Presence of coronary angioplasty implant and graft; W19.XXXA Unspecified fall, initial encounter; Z95.0 Presence of cardiac pacemaker; Z79.01 Long term (current) use of anticoagulants
CPT/HCPCS: 70450; 72125; 80048; 81001; 85025; 99285

== ENCOUNTER → 2024-07-28 | Outpatient (CLI) | payer MEDICARE, SELFPAY ==
[2020-06-07 08:50] VITALS: BMI 19.4
[2024-07-28 16:39] LABS: Anion Gap 16 (5-15); BUN 21 mg/dL (4-19); Calcium,Total 8.9 mg/dL (7.6-11.0); Carbon Dioxide 21.1 mmol/L (21.0-32.0); Chloride 99 mmol/L (98-108); Creatinine, Serum 1.05 mg/dL (0.70-1.20); EST Glomerular Filtration Rate 51 (>60); Glucose 102 mg/dL (70-99); Sodium Level 136 mmol/L (133-145)
== END | disposition home or self-care (01) ==
LOC: MTLAB 11:30
PROVIDERS: PCP Family Medicine; Referring Provider Nurse Practitioner Family; Visit Provider Nurse Practitioner Family
DX: R06.02 Shortness of breath (principal); I48.0 Paroxysmal atrial fibrillation; R79.9 Abnormal finding of blood chemistry, unspecified; Z95.5 Presence of coronary angioplasty implant and graft; I25.10 Atherosclerotic heart disease of native coronary artery without angina pectoris; Z85.3 Personal history of malignant neoplasm of breast; E78.2 Mixed hyperlipidemia
CPT/HCPCS: 80048

== ENCOUNTER → 2024-09-29 | Outpatient (CLI) | payer MEDICARE, SELFPAY ==
[2020-06-07 08:50] VITALS: BMI 19.4
[2024-09-29 13:02] LABS: Absolute Lymphocyte Count 1.07 X10^3/uL (0.83-4.51); Absolute Neutrophil Count 1.1 X10^3/uL (2.0-7.7); Basophil# 0.02 X10^3/uL; Basophil% 0.7 % (0-1); Eosinophil# 0.02 X10^3/uL; Eosinophils% 0.7 % (0-5); Hemoglobin 14.5 g/dL (12.0-15.0); Lymphocyte # 1.07 X10^3/ul (0.83-4.51); Lymphocyte % 39.3 % (19-41); Mean Corpuscular Hgb 31.5 pg (27.0-32.0); Mean Corpuscular Volume 95.7 fL (81-99); Mean Platelet Vol. 11.3 fl (6.2-12.0); Monocyte# 0.54 X10^3/uL; Monocyte% 19.9 % (0-10); NRBC Flagged by Analyzer 0 % (0-5); Neutrophil # 1.07 X10^3/uL (2.7-7.7); Neutrophil % 39.4 % (47-70); Platelet Count 103 K/mm3 (150-450); RBC Distribution Width CV 17.4 % (11.6-14.6); RBC Distribution Width SD 60.5 fl (35.1-43.9); White Blood Count 2.7 K/mm3 (4.4-11.0)
[2024-09-29 13:10] LABS: ALB/GLOB Ratio 1.8 RATIO (0.9-2.4); AST(SGOT) 24 U/L (<=31); Alanine Aminotransfer ALT/SGPT 18 U/L (<=34); Alkaline Phosphatase 50 U/L (35-104); Anion Gap 11 (5-15); BUN 31 mg/dL (4-19); BUN/Creat Ratio 27.3 RATIO (10-20); Calcium,Total 9.4 mg/dL (7.6-11.0); Carbon Dioxide 22.7 mmol/L (21.0-32.0); Chloride 101 mmol/L (98-108); Creatinine, Serum 1.14 mg/dL (0.70-1.20); EST Glomerular Filtration Rate 46 (>60); Globulin 2.2 g/dL (2.2-4.2); Glucose 104 mg/dL (70-99); Potassium 4.3 mmol/L (3.3-5.1); Protein, Total 6.2 g/dL (5.9-8.4); Sodium Level 135 mmol/L (133-145)
== END | disposition home or self-care (01) ==
LOC: MTLAB 11:12
PROVIDERS: PCP Family Medicine; Referring Provider Internal Medicine Rheumatology; Visit Provider Internal Medicine Rheumatology
DX: M05.70 Rheumatoid arthritis with rheumatoid factor of unspecified site without organ or systems involvement (principal); Z79.899 Other long term (current) drug therapy
CPT/HCPCS: 36415; 80053; 85025

== ENCOUNTER → 2024-10-16 | Outpatient (CLI) | payer MEDICARE, SELFPAY ==
[2020-06-07 08:50] VITALS: BMI 19.4
[2024-10-16 15:52] LABS: Absolute Lymphocyte Count 0.93 X10^3/uL (0.83-4.51); Absolute Neutrophil Count 1.4 X10^3/uL (2.0-7.7); Basophil# 0.02 X10^3/uL; Basophil% 0.7 % (0-1); Eosinophil# 0.02 X10^3/uL; Eosinophils% 0.7 % (0-5); Hematocrit 43.8 % (37-47); Hemoglobin 14.8 g/dL (12.0-15.0); Lymphocyte # 0.93 X10^3/ul (0.83-4.51); Lymphocyte % 32.6 % (19-41); Mean Corp Hgb Conc 33.8 g/dL (32-36); Mean Corpuscular Hgb 32.5 pg (27.0-32.0); Mean Corpuscular Volume 96.3 fL (81-99); Mean Platelet Vol. 11.3 fl (6.2-12.0); Monocyte# 0.49 X10^3/uL; Monocyte% 17.2 % (0-10); NRBC Flagged by Analyzer 0 % (0-5); Neutrophil # 1.38 X10^3/uL (2.7-7.7); Neutrophil % 48.4 % (47-70); POSITIVE MORPHOLOGY YES; Platelet Count 102 K/mm3 (150-450); RBC Distribution Width CV 18.7 % (11.6-14.6); RBC Distribution Width SD 65.9 fl (35.1-43.9); Red Blood Count 4.55 M/mm3 (4.2-5.4); White Blood Count 2.9 K/mm3 (4.4-11.0)
[2024-10-16 16:28] LABS: LDH 218 U/L (84-246)
[2024-10-16 17:07] LABS: AST(SGOT) 23 U/L (<=31); Alanine Aminotransfer ALT/SGPT 17 U/L (<=34); Albumin, Serum 4.1 g/dL (3.4-4.8); Alkaline Phosphatase 39 U/L (35-104); Anion Gap 13 (5-15); BUN 30 mg/dL (4-19); Calcium,Total 9.4 mg/dL (7.6-11.0); Carbon Dioxide 23.6 mmol/L (21.0-32.0); Chloride 100 mmol/L (98-108); Creatinine, Serum 1.14 mg/dL (0.70-1.20); EST Glomerular Filtration Rate 46 (>60); Globulin 2.1 g/dL (2.2-4.2); Glucose 124 mg/dL (70-99); Potassium 3.9 mmol/L (3.3-5.1); Protein, Total 6.2 g/dL (5.9-8.4); Sodium Level 136 mmol/L (133-145)
[2024-10-16 17:41] LABS: Differential Indicated SCAN CRITERIA MET
[2024-10-16 19:41] LABS: Differential Comment SCANNED
[2024-10-16 19:42] LABS: Platelet Estimate SLT DEC (ADEQ)
[2024-10-16 19:43] LABS: Anisocytosis 1+; Polychromasia 1+
--- OUTSIDE RECORDS SUMMARY | 2024-10-16 23:00 | XMS RPT_ITS | CCD ---
Author Organization [facility] Care Team Providers Care Under Cutting Machine Operator Name Role Phone Teagan Hall Unavailable Unavailable VRABEC, TREASURE A Unavailable Unavailable VRABEC, TREASURE A Unavailable Unavailable FUNMILAYO, MARCUS P Unavailable Unavailable KISHMAN, JOSE L Unavailable Unavailable [...] IMCA Unavailable Unavailable Jolliff, Teagan Unavailable Unavailable Dr. Teagan Hall Primary Care Provider Dr. Teagan Hall Referring Provider [phone] Dr. Matteo Jonas Attending Provider Roof NATIONAL BUSINESS DIRECTOR, NATIONAL BUSINESS DIRECTOR-Stephany Orourke Attending Provider Dr. Teagan Hall Primary Care Provider Dr. Teagan Hall Referring Provider Dr. Teagan Hall Primary Care Provider Dr. Teagan Hall Referring Provider Dr. Chucho Shane Attending Provider Dr. Chucho Shane Referring Provider Dr. Chucho Shane Other Provider [phone] Michael Wright Attending Provider [phone] Teagan Hall Primary Care Provider Dr. Teagan Hall Referring Provider Dr. Chucho Shane Attending Provider [phone] Dr. Chucho Shane Referring Provider Dr. Chucho Shane Other Provider [phone] Michael Wright Attending Provider [phone] Jojose j, Teagan Peter Primary Care Provider MARCUS MELLO Referring Unavailabl e JOLLIFF, TEAGAN PETER Primary Care Unavailable MARCUS MELLO Referring Unavailabl e JOLLIFF, TEAGAN PETER Primary Care Unavailable Rafael, Teagan Peter Primary Care Provider Dr. Teagan Hall Primary Care Provider Dr. Chucho Shane Attending Provider Dr. Teagan Hall Referring Provider Dr. Matteo Jonas Attending Provider Dr. Teagan Hall Primary Care Provider Dr. Chucho Shane Referring Provider Dr. Teagan Hall Primary Care Provider Holli Morillo Attending Provider Unavailable Dr. Chucho Shane Attending Provider Dr. Teagan Hall Primary Care Provider Dr. Teagan Hall Referring Provider Dr. Matteo Jonas Attending Provider Holli Morillo Attending Provider Unavailable Dr. Chucho Shane Attending Provider Dr. Teagan Hall Primary Care Provider Dr. Teagan Hall Referring Provider Dr. Matteo Jonas Attending Provider MARCUS MELLO Attending Unavailabl e JOLLIFF, TEAGAN PETER Primary Care Unavailable MARCUS MELLO Referring Unavailabl e JOLLIFF, TEAGAN PETER Primary Care Unavailable MARCUS MELLO Attending Unavailabl e MARCUS MELLO Referring Unavailabl e JOLLIFF, TEAGAN PETER Primary Care Unavailable MARCUS MELLO Attending Unavailabl e JOLLIFF, TEAGAN PETER Primary Care Unavailable MARCUS MELLO Attending Unavailabl e JOLLIFF, TEAGAN PETER Primary Care Unavailable MARCUS MELLO Attending Unavailabl e JOLLIFF, TEAGAN PETER Primary Care Unavailable JOLLIFF, TEAGAN PETER Primary Care Unavailable AMY GREENWOOD Admitting Unavailable EUGENE, LINDA Attending Unavailable MARCUS MELLO Admitting Unavailabl e MARCUS MELLO Attending Unavailabl e MARCUS MELLO Referring Unavailabl e JOLLIFF, TEAGAN PETER Primary Care Unavailable MARCUS MELLO Attending Unavailabl e JOLLIFF, TEAGAN PETER Primary Care Unavailable MARCUS MELLO Attending Unavailabl e JOLLIFF, TEAGAN PETER Primary Care Unavailable Teagan Hall Primary Care Provider Dr. Teagan Hall Primary Care Provider Teagan Hall Primary Care Provider Dr. Teagan Hall Primary Care Provider Dr. Teagan Hall Referring Provider Dr. Teagan Hall Primary Care Provider Dr. Teagan Hall Referring Provider [phone] Matteo Jonas Attending Provider Dr. Henrry Cano Emergency Provider Dr. Saravanan Monzon Admit Provider Dr. Saravanan Monzon Attending Provider Dr. Saravanan Monzon Other Provider Dr. Teagan Hall Primary Care Provider Dr. Teagan Hall Referring Provider Dr. Matteo Jonas Attending Provider WISAM Magallon Attending Provider Dr. Teagan Hall Primary Care Provider Dr. Teagan Hall Referring Provider Dr. Matteo Jonas Attending Provider Dr. Dustin Perez Attending Provider WISAM Magallon Other Provider Dr. Elias Arevalo Attending Provider Dr. Elias Arevalo Referring Provider [phone] Miriam Reyes Referring Provider Dr. Miriam Reyes Emergency Provider Dr. Aden Marquez Attending Provider Roof NATIONAL BUSINESS DIRECTOR, NATIONAL BUSINESS DIRECTOR-C Sharad Mchugh Attending Provider Dr. Teagan Hall Primary Care Provider Dr. Henrry Cano Emergency Provider Dr. Saravanan Monzon Admit Provider Dr. Saravanan Monzon Attending Provider Dr. Saravanan Monzon Other Provider Dr. Teagan Hall Referring Provider Dr. Matteo Jonas Attending Provider WISAM Magallon Attending Provider Dr. Dustin Perez Attending Provider WISAM Magallon Other Provider Dr. Elias Arevalo Attending Provider Dr. Elias Arevalo Referring Provider Dr. Miriam Reyes Referring Provider Dr. Miriam Reyes Emergency Provider [phone] Dr. Aden Marquez Attending Provider Bry NATIONAL BUSINESS DIRECTOR, MARLENE-Stephany Mchugh Attending Provider WISAM Magallon Referring Provider WAYNE Juarez Attending Provider Dr. Seth Garcia Emergency Provider Dr. Matteo Anderson Admit Provider Dr. Matteo Anderson Attending Provider Dr. Matteo Anderson Other Provider Dr. Jesi Dunham Other Provider Dr. Michael Sinclair Other Provider Dr. Teagan Hall Primary Care Provider Dr. Henrry Cano Emergency Provider Dr. Saravanan Monzon Admit Provider Dr. Saravanan Monzon Attending Provider Dr. Saravanan Monzon Other Provider Dr. Teagan Hall Referring Provider Dr. Matteo Jonas Attending Provider WISAM Magallon Attending Provider Dr. Dsutin Perez Attending Provider WISAM Magallon Other Provider Dr. Elias Arevalo Attending Provider Dr. Elias Arevalo Referring Provider Dr. Miriam Reyes Referring Provider Dr. Miriam Reyes Emergency Provider Dr. Aden Marquez Attending Provider Bry NATIONAL BUSINESS DIRECTOR, WAYNE Mchugh Attending Provider WISAM Magallon Referring Provider WAYNE Juarez Attending Provider Dr. Seth Garcia Emergency Provider Dr. Matteo Andersonit Provider Dr. Matteo Anderson Attending Provider Dr. Matteo Anderson Other Provider Dr. Jesi Dunham Other Provider Dr. Michael Sinclair Attending Provider Dr. Michael Sinclair Other Provider Iza Pagan Attending Provider Unavailable Dr. Teagan Hall Primary Care Provider Dr. Teagan Hall Referring Provider Dr. Dustin Perez Attending Provider WISAM Magallon Other Provider Dr. Elias Arevalo Attending Provider Dr. Elias Arevalo Referring Provider Dr. Miriam Reyes Referring Provider Dr. Miriam Reyes Emergency Provider Dr. Aden Marquez Attending Provider Roof MARLENE, NATIONAL BUSINESS DIRECTOR-Stephany Mchugh Attending Provider WISAM Magallon Attending Provider WISAM Magallon Referring Provider WAYNE Juarez Attending Provider Dr. Seth Garcia Emergency Provider Dr. Matteo Anderson Provider Dr. Matteo Anderson Attending Provider Dr. Matteo Anderson Other Provider Dr. Jesi Dunham Other Provider Dr. Michael Sinclair Attending Provider Dr. Michael Sinclair Other Provider Iza Pagan Attending Provider Unavailable Trinity NATIONAL BUSINESS DIRECTOR, NATIONAL BUSINESS DIRECTOR-C Mariely Attending Provider Dr. Jesi Dunham Attending Provider Trinity NATIONAL BUSINESS DIRECTOR, NATIONAL BUSINESS DIRECTOR-C Mariely Referring Provider Trinity NATIONAL BUSINESS DIRECTOR, NATIONAL BUSINESS DIRECTOR-C Mariely Other Provider Dr. Ash Loving Attending Provider Dr. Teagan Hall Primary Care Provider Dr. Teagan Hall Referring Provider Dr. Teagan Hall Primary Care Provider Dr. Seth Garcia Emergency Provider Dr. Matteo Anderson Admit Provider Dr. Matteo Anderson Other Provider Dr. Elias Arevalo Attending Provider Dr. Teagan Hall Referring Provider Dr. Elias Arevalo Referring Provider WISAM Magallon Attending Provider Dr. Aden Marquez Attending Provider Dr. Teagan Hall Primary Care Provider Dr. Elias Arevalo Attending Provider Dr. Teagan Hall Referring Provider Dr. Teagan Hall Primary Care Provider Dr. Elias Arevalo Attending Provider Dr. Elias Arevaol Referring Provider Dr. Teagan Hall Referring Provider WISAM Magallon Attending Provider Trinity NATIONAL BUSINESS DIRECTOR, NATIONAL BUSINESS DIRECTOR-C Mariely Attending Provider Dr. Jesi Dunham Attending Provider Trinity NATIONAL BUSINESS DIRECTOR, NATIONAL BUSINESS DIRECTOR-C Mariely Referring Provider [phone] Trinity NATIONAL BUSINESS DIRECTOR, NATIONAL BUSINESS DIRECTOR-C Mariely Other Provider Dr. Ash Loving Attending Provider Dr. Aden Marquez Attending Provider Dr. Matteo Jonas Attending Provider JOLLIFF, TEAGAN Primary Care Unavailable JEROME-ADALID, GALO Attending Unava ilable JOLLIFF, TEAGAN Primary Care Unavailable JEROME-ADALID, GALO Attending Unava ilable JOLLIFF, TEAGAN Primary Care Unavailable JEROME-ADALID, GALO Referring Unava ilable JEROME-ADALID, GALO Attending Unava ilable JEROME-ADALID, GALO Admitting Unava ilable JEROME-ADALID, GALO Referring Unava ilable JOLLIFF, TEAGAN Primary Care Unavailable JEROME-ADALID, GALO Attending Unava ilable MATTEO JONAS. Referring Unavailable JOLLIFF, TEAGAN Primary Care Unavailable RAMESH VIDAL Attending Unavailable JOLLIFF, TEAGAN Primary Care Unavailable JEROME-ADALID, GALO Attending Unava ilable Dr. Teagan Hall Primary Care Provider Dr. Teagan Hall Referring Provider Dr. Elias Arevalo Referring Provider WISAM Magallon Attending Provider WISAM Magallon Referring Provider WISAM Magallon Other Provider WAYNE Juarez Attending Provider Dr. Teagan Hall MD Primary Care Provider Dr. Elias Arevalo MD Attending Provider Dr. Elias Arevalo MD Referring Provider Dr. Teagan Hall MD Referring Provider Holli Magallon Attending Provider Ponce LOPES, Dr. Stern Attending Provider Ponce LOPES, Dr. Stern Referring Provider Fior LOPES, Dr. Almaguer Other Provider Fior LOPES, Dr. Almaguer Attending Provider Fior LOPES, Dr. Almaguer Referring Provider Roof NATIONAL BUSINESS DIRECTOR-C, Sharad H Other Provider Candelaria JOEL, Holli Singleton Referring Provider Kenneth LOPES, Dr. Ny Emergency Provider Kenneth LOPES, Dr. Ny Attending Provider Roof NATIONAL BUSINESS DIRECTOR-C, Sharad H Attending Provider Roof NATIONAL BUSINESS DIRECTOR-C, Sharad H Referring Provider Rafael LOPES, Dr. Teagan Franks Primary Care Provider Irina LOPES, Dr. Griffin Attending Provider Irina LOPES, Dr. Griffin Referring Provider Holli Magallon Attending Provider Rafael LOPES, Dr. Teagan Franks Referring Provider Roof NATIONAL BUSINESS DIRECTOR, Sharad H Attending Unavailable Jolliff, Teagan S Primary Care Unavailable Irina, Elias Attending Unavailable Irina, Elias Referring Unavailable Jolliff, Teagan S Primary Care Unavailable IrinaElias akhtar Attending Unavailable Irina, Flora Referring Unavailable Jolliff, Teagan S Primary Care Unavailable Roof NATIONAL BUSINESS DIRECTOR, Sharad H Referring Unavailable Roof NATIONAL BUSINESS DIRECTOR, Sharad H Attending Unavailable Jolliff, Teagan S Primary Care Unavailable Holli Magallon Referring Unavail able Holli Magallon Attending Unavail able Jolliff, Teagan S Primary Care Unavailable Roof NATIONAL BUSINESS DIRECTOR, Sharad H Referring Unavailable Roof NATIONAL BUSINESS DIRECTOR, Sharad H Attending Unavailable Jolliff, Teagan S Primary Care Unavailable Holli Magallon Referring Unavail able Holli Magallon Attending Unavail able Jolliff, Teagan S Primary Care Unavailable Zapien NATIONAL BUSINESS DIRECTOR, Mary Attending Unavailable Jolliff, Teagan S Primary Care Unavailable Jolliff, Teagan S Referring Unavailable Holli Magallon Attending Unavail able Jolliff, Teagan S Primary Care Unavailable Vellanki, Leena Referring Unavailable Vellanki, Leena Attending Unavailable Jolliff, Teagan S Primary Care Unavailable Vellanki, Leena Referring Unavailable Vellanki, Leena Attending Unavailable Holli Magallon Consulting Unavail able Jolliff, Teagan S Primary Care Unavailable Roof NATIONAL BUSINESS DIRECTOR, Sharad H Referring Unavailable Roof NATIONAL BUSINESS DIRECTOR, Sharad H Attending Unavailable Jolliff, Teagan S Primary Care Unavailable Vellanki, Leena Attending Unavailable Vellanki, Leena Referring Unavailable Jolliff, Teagan S Primary Care Unavailable Jolliff, Teagan S Consulting Unavailable Miedel, [place] Attending Unavailable Roof NATIONAL BUSINESS DIRECTOR, Sharad H Consulting Unavailable Jolliff, Teagan S Primary Care Unavailable Miedel, Tripp Referring Unavailable Vellanki, Leena Consulting Unavailable Jolliff, Teagan S Primary Care Unavailable Holli Magallon Referring Unavail able Holli Magallon Attending Unavail able Bhavik NATIONAL BUSINESS DIRECTOR, Julieth Attending Unavailable Jolliff, Teagan S Referring Unavailable Jolliff, Teagan S Primary Care Unavailable CooperAnant Attending Unavailable Jolliff, Teagan S Primary Care Unavailable Jolliff, Teagan S Referring Unavailable Matteo Jonas Attending Unavailable Jolliff, Teagan S Primary Care Unavailable Irina, Flora Attending Unavailable Irina, Flora Referring Unavailable Jolliff, Teagan S Primary Care Unavailable Miedel, Tripp Attending Unavailable Jolliff, Teagan S Primary Care Unavailable Miedel, [place] Referring Unavailable Miedel, [place] Consulting Unavailable Vellanki, Leena Referring Unavailable Vellanki, Leena Attending Unavailable Jolliff, Teagan S Primary Care Unavailable Irina, Elias Referring Unavailable Jolliff, Teagan S Primary Care Unavailable Irina, Flora Attending Unavailable Jolliff, Teagan S Primary Care Unavailable Jolliff, Teagan S Referring Unavailable Holli Magallon Attending Unavail able Jolliff, Teagan S Referring Unavailable Jolliff, Teagan S Primary Care Unavailable Irina, Flora Attending Unavailable Irina, Flora Attending Unavailable Jolliff, Teagan S Primary Care Unavailable Allergies Allergy Classification Reported Allergen(s) Allergy Type Date of Onset Reaction(s) Facility (20 sources) Ticagrelor; Translations: [TICAGRELOR] Drug Allergy 1 Other: See Comments [facility] (8 sources) Ticagrelor Allergy to substance 1 Other [facility] (1 source) Ticagrelor Drug Allergy 5 [facility] Repository Medications Current Medications Medication Drug Class(es) Dates Sig (Normalized) Sig (Original) acetaminophen 500 mg oral tablet (20 sources) Start: 04-12-2020 take 2 tablets by mouth twice daily Acetaminophen 500 MG tablet Active 1000 mg PO TWICE A DAY April 12, 2020 1:00am Start: 04-12-2020 take 1000 mg by mout h twice daily Acetaminophen Active 1000 MG PO TWICE A DAY April 12, 2020 1:00am Start: 04-21-2017 take 1 tablet by joaquín th every six hours as needed acetaminophen (TYLENOL) 325 mg tablet Take 1 tablet by mouth every 6 hours as needed for Pain or Fever. 90 tablet 0 04/21/2017 Active Comment on above: Take 1 tablet by joaquín th every 6 hours as needed for Pain or Fever. apixaban 2.5 mg oral tablet (20 sources) Factor Xa Inhibitor Start: 04-07-2023 End: 09-12-2024 take 1 tablet by mouth twice daily Apixaban 2.5 mg tablet Active 2.5 mg PO TWICE A DAY 180 September 12, 2024 11:18am Start: 04-07-2023 End: 04-07-2023 take 1 tablet by mouth twice daily Apixaban 5 mg tablet Discontinued 5 mg PO TWICE A DAY April 07, 2023 1:00am April 07, 2023 2:48pm Start: 01-06-2023 End: 02-25-2023 take 1 tablet by mouth twice daily Apixaban (Eliquis) 2.5 mg tablet Discontinued 2.5 mg PO TWICE A DAY 180 February 04, 2023 12:25pm February 25, 2023 9:03am On Hold: Resume on 02/28/23. calcium carbonate 500 mg chewable tablet (20 sources) Start: 10-26-2018 End: 04-07-2023 take 1 tablet by mouth once daily as needed Calcium Carbonate 200 mg calcium (500 mg) tablet,chewable Active 1000 mg PO DAILY@0800 as needed for indigestion April 07, 2023 2:10pm Start: 10-26-2018 End: 04-07-2023 take 2 tablets by mouth once daily Calcium Carbonate 500 MG tablet Discontinued 1000 mg PO DAILY@0800 October 26, 2018 12:00am April 07, 2023 2:11pm CALCIUM CARBONAT E (CALCIUM 600 ORAL) Take by mouth twice daily. 0 Active Comment on above: Take by mouth twice daily. dapagliflozin 10 mg oral tablet (5 sources) Sodium-Glucose Cotransporter 2 Inhibitor Start: 02-01-20 take 1 tablet by mouth once daily in the morning Dapagliflozin Propanediol (Farxiga) 10 mg tablet Active 10 mg PO EVERY MORNING February 01, 2024 12:00am furosemide 40 mg oral tablet (20 sources) Loop Diuretic Start: 07-04-19 End: 07-27-19 take 1 tablet by mouth once daily Furosemide 40 mg tablet Active 40 mg PO daily July 26, 2024 5:14pm Start: 01-21-2024 End: 02-17-2024 take 1 tablet by mouth once daily Furosemide 20 mg tablet Discontinued 20 mg PO daily January 21, 2024 2:48pm February 17, 2024 9:51am Start: 01-21-2024 End: 01-21-2024 Furosemide 40 mg tablet Disc ontinued 20 mg PO daily January 21, 2024 1:58pm January 21, 2024 2:48pm Start: 11-09-2023 End: 01-21-2024 take 1 tablet by mouth once daily Furosemide 40 mg tablet Discontinued 40 mg PO daily November 09, 2023 2:38pm January 21, 2024 1:59pm Start: 10-15-2023 End: 11-09-2023 take 1 tablet by mouth twice daily Furosemide 20 mg tablet Discontinued 20 mg PO TWICE A DAY October 15, 2023 1:01pm November 09, 2023 2:46pm Start: 08-24-2023 End: 10-15-2023 take 2 tablets by mouth once daily Furosemide 20 mg tablet Discontinued 40 mg PO DAILY August 24, 2023 9:20am October 15, 2023 1:02pm Start: 08-24-2023 take 40 mg by mouth once daily Furosemide Active 40 MG PO DAILY August 24, 2023 9:20am Start: 05-25-2023 End: 08-24-2023 take 1 tablet by mouth once daily Furosemide 20 mg tablet Discontinued 20 mg PO DAILY May 25, 2023 3:00pm August 24, 2023 9:21am Start: 05-04-2023 End: 05-25-2023 Furosemide (Lasix) 40 mg tab let Discontinued 20 mg PO DAILY May 04, 2023 5:20pm May 25, 2023 3:01pm Start: 04-16-2023 End: 05-04-2023 take 1 tablet by mouth once daily Furosemide (Lasix) 40 mg tablet Discontinued 40 mg PO DAILY April 16, 2023 5:03pm May 04, 2023 5:20pm Start: 04-06-2023 End: 04-16-2023 take 1 tablet by mouth twice daily Furosemide (Lasix) 40 mg tablet Discontinued 40 mg PO TWICE A DAY April 06, 2023 12:31pm April 16, 2023 5:04pm Start: 03-22-2023 End: 04-06-2023 take 1 tablet by mouth once daily Furosemide (Lasix) 40 mg tablet Discontinued 40 mg PO DAILY March 22, 2023 1:50pm April 06, 2023 12:32pm Start: 01-21-2023 End: 02-04-2023 take 1 tablet by mouth once daily Furosemide (Lasix) 40 mg tablet Discontinued 40 mg PO DAILY January 21, 2023 12:00am February 04, 2023 12:09pm Start: 01-21-2023 End: 02-25-2023 take 1 tablet by mouth twice daily Furosemide (Lasix) 40 mg tablet Discontinued 40 mg PO TWICE A DAY February 04, 2023 12:26pm February 25, 2023 8:12am Start: 10-08-2020 End: 11-13-2020 take 1 tablet by mouth once daily Furosemide (Lasix) 40 mg tablet Discontinued 40 mg PO DAILY October 08, 2020 4:46pm November 13, 2020 11:23am Start: 04-29-2020 End: 05-01-2020 take 1 tablet by mouth once daily Furosemide (Lasix) 40 mg tablet Discontinued 40 mg PO DAILY April 29, 2020 1:00am May 01, 2020 11:50am levothyroxine sodium 0.075 mg oral tablet (20 sources) l-Thyroxine Start: 04-06-2023 Levothyroxine 75 mcg tablet Active 100 ug PO DAILY April 06, 2023 12:25pm Start: 04-06-2023 take 100 ug by mouth once daily Levothyroxine Active 100 MCG PO DAILY April 06, 2023 12:25pm Start: 12-12-2021 End: 04-06-2023 take 1 tablet by mouth once daily Levothyroxine 75 mcg Tablet Discontinued 75 ug PO DAILY December 12, 2021 12:00am April 06, 2023 12:26pm Comment on above: Take by mouth. Take by mouth once d aily. methotrexate 2.5 mg oral tablet (20 sources) Folate Analog Metabolic Inhibitor Start: 08-19-2022 methotrexate 2.5 MG tablet Start: 05-23-2020 End: 07-16-2023 Methotrexate Sodium 2.5 mg t ablet Discontinued 15 mg PO BRENNER May 23, 2020 4:12pm July 16, 2023 10:17am on Sundays Start: 12-13-2019 End: 05-23-2020 Methotrexate Sodium 2.5 MG t ablet Discontinued 100 mg PO BRENNER December 13, 2019 12:00am May 23, 2020 4:13pm on Sundays Start: 12-13-2019 End: 07-16-2023 Methotrexate Sodium Disconti nued 15 MG PO BRENNER May 23, 2020 4:12pm July 16, 2023 10:17am on Sundays Start: 12-13-2019 End: 05-23-2020 Methotrexate Sodium Disconti nued 100 MG PO BRENNER December 13, 2019 12:00am May 23, 2020 4:13pm on Sundays Start: 10-26-2018 End: 10-28-2018 Methotrexate Sodium 2.5 MG t ablet Discontinued 15 mg PO Q7D October 26, 2018 12:00am October 28, 2018 4:30pm Start: 10-26-2018 End: 10-28-2018 take 15 mg by mouth every week Methotrexate Sodium Dis continued 15 MG PO Q7D October 26, 2018 12:00am October 28, 2018 4:30pm Start: 04-25-2017 take 6 tablets by mouth once m ethotrexate 2.5 mg tablet Take 6 tablets by mouth every Wednesday. 90 tablet 0 04/25/2017 Active Methotrexate Sod ium 2.5 mg tablet Take 15 mg by mouth once daily. 0 Active Comment on above: Take 15 mg by mouth once daily. Take 6 tablets by mo [facility] every Wednesday. metoprolol tartrate 50 mg oral tablet (20 sources) beta-Adrenergic Kemal Start: 05-01-2024 take 1 tablet by mouth twice daily Metoprolol Tartrate 50 mg tablet Active 50 mg PO TWICE A DAY 180 May 01, 2024 2:44pm Start: 05-04-2023 End: 05-01-2024 take 1 tablet by mouth twice daily Metoprolol Tartrate 25 mg tablet Discontinued 25 mg PO TWICE A DAY 180 May 25, 2023 2:56pm May 01, 2024 2:44pm Start: 03-22-2023 End: 05-04-2023 take 2 tablets by mouth twice daily Metoprolol Tartrate 25 mg tablet Discontinued 50 mg PO TWICE A DAY March 22, 2023 1:50pm May 04, 2023 4:37pm Start: 03-22-2023 End: 05-04-2023 take 50 mg by mouth twice daily Metoprolol Tartrate Di scontinued 50 MG PO TWICE A DAY March 22, 2023 1:50pm May 04, 2023 4:37pm Start: 02-25-2023 End: 03-22-2023 take 1 tablet by mouth twice daily Metoprolol Tartrate 25 mg tablet Discontinued 25 mg PO TWICE A DAY February 25, 2023 12:00am March 22, 2023 1:51pm Start: 02-23-2023 End: 02-25-2023 Metoprolol Tartrate 50 mg ta blet Discontinued 25 mg PO TWICE A DAY February 23, 2023 12:00am February 25, 2023 8:12am Start: 02-23-2023 End: 02-25-2023 take 25 mg by mouth twice daily Metoprolol Tartrate Di scontinued 25 MG PO TWICE A DAY February 23, 2023 12:00am February 25, 2023 8:12am Start: 01-21-2023 End: 02-25-2023 take 1 tablet by mouth twice daily Metoprolol Tartrate 50 mg tablet Discontinued 50 mg PO TWICE A DAY February 04, 2023 12:24pm February 23, 2023 5:17pm Start: 06-09-2022 metoprolol suc cinate XL (Toprol-XL) 25 MG 24 hr tablet Start: 01-12-2022 metoprolol suc cinate ER (TOPROL XL) 25 mg 24 hr tablet Start: 11-06-2021 End: 01-20-2023 take 1 tablet by mouth once daily Metoprolol Succinate 25 mg tablet extended release 24 hr Discontinued 25 mg PO DAILY 90 April 14, 2022 11:33am January 07, 2023 11:54am Start: 11-06-2021 End: 01-21-2023 take 1 tablet by mouth twice daily Metoprolol Succinate 25 mg tablet extended release 24 hr Discontinued 25 mg PO TWICE A DAY 180 January 20, 2023 12:36pm January 21, 2023 7:06pm Start: 12-24-2020 End: 11-06-2021 take 1 tablet by mouth twice daily Metoprolol Tartrate 25 mg tablet Discontinued 25 mg PO TWICE A DAY 180 December 24, 2020 11:08am November 06, 2021 8:33am Start: 09-25-2020 End: 12-24-2020 Metoprolol Tartrate 50 mg ta blet Discontinued 25 mg PO TWICE A DAY 180 September 25, 2020 4:21pm December 24, 2020 11:09am Start: 09-25-2020 End: 12-24-2020 take 25 mg by mouth twice daily Metoprolol Tartrate Di scontinued 25 MG PO TWICE A DAY 180 September 25, 2020 4:21pm December 24, 2020 11:09am Start: 06-21-2020 End: 12-24-2020 take 1 tablet by mouth twice daily Metoprolol Tartrate 50 mg tablet Discontinued 50 mg PO TWICE A DAY 180 June 21, 2020 3:27pm September 25, 2020 4:22pm Start: 05-29-2020 End: 06-21-2020 take 2 tablets by mouth twice daily Metoprolol Tartrate 25 mg tablet Discontinued 50 mg PO TWICE A DAY May 29, 2020 6:04pm June 21, 2020 3:28pm Start: 05-29-2020 End: 06-21-2020 take 50 mg by mouth twice daily Metoprolol Tartrate Di scontinued 50 MG PO TWICE A DAY May 29, 2020 6:04pm June 21, 2020 3:28pm Start: 04-14-2020 End: 06-21-2020 take 1 tablet by mouth twice daily Metoprolol Tartrate 25 MG tablet Discontinued 25 mg PO TWICE A DAY May 16, 2020 1:03am May 29, 2020 6:05pm Start: 04-14-2020 End: 05-13-2020 Metoprolol Tartrate 25 MG ta blet Discontinued 12.5 mg PO TWICE A DAY 60 April 14, 2020 1:00am May 13, 2020 3:22pm Start: 04-14-2020 End: 05-13-2020 take 12.5 mg by mouth twice daily Metoprolol Tartrate Discontinued 12.5 MG PO TWICE A DAY 60 April 14, 2020 1:00am May 13, 2020 3:22pm Comment on above: Take 25 mg by mouth once daily. mirtazapine 30 mg oral tablet (20 sources) Start: 09-12-2024 Mirtazapine 30 mg tablet Active 45 mg PO DAILY September 12, 2024 11:12am Start: 01-21-2024 End: 09-12-2024 take 1 tablet by mouth once daily Mirtazapine 30 mg tablet Discontinued 30 mg PO DAILY January 21, 2024 1:58pm September 12, 2024 11:13am Start: 05-04-2023 End: 01-21-2024 Mirtazapine 30 mg tablet Discontinued 15 mg PO DAILY May 04, 2023 1:00am January 21, 2024 1:59pm Start: 05-04-2023 take 15 mg by mouth once daily Mirtazapine Active 15 MG PO DAILY May 04, 2023 1:00am Start: 08-19-2022 End: 04-07-2023 take 1 tablet by mouth once daily Mirtazapine 15 mg tablet Discontinued 15 mg PO DAILY February 04, 2023 12:00am April 07, 2023 2:11pm Start: 06-24-2022 End: 02-04-2023 take 1 tablet by mouth once daily Mirtazapine 7.5 mg tablet Discontinued 7.5 mg PO DAILY June 24, 2022 1:00am February 04, 2023 11:34am Tiotropium-Olodaterol (20 sources) Anticholinergic, beta2-Adrenergic Agonist Start: 12-09-2020 Tiotropium-Olodaterol (Stiolto Respimat) 2.5-2.5 mcg/actuation mist Active 2 INH INHALATION DAILY 4 December 09, 2020 11:04am Start: 12-09-2020 End: 12-24-2021 Tiotropium-Olodaterol (Stiol to Respimat) 2.5-2.5 mcg/actuation mist Discontinued 2 NMA INHALATION DAILY 4 December 09, 2020 12:00am December 24, 2021 1:38pm Start: 12-09-2020 End: 12-24-2021 Start: 12-09-2020 End: 12-24-2021 Tiotropium-Olodaterol (Stiol to Respimat) 2.5-2.5 mcg/actuation mist Discontinued 2 INH INHALATION DAILY 4 December 08, 2020 11:00pm December 24, 2021 12:38pm Start: 12-09-2020 End: 12-24-2021 Tiotropium-Olodaterol (Stiol to Respimat) 2.5-2.5 mcg/actuation mist Discontinued 2 INH INHALATION DAILY 4 December 09, 2020 12:00am December 24, 2021 1:38pm Start: 12-09-2020 Tiotropium-Olo daterol (Stiolto Respimat) 2.5-2.5 mcg/actuation mist Active 2 INH INHALATION DAILY 4 December 09, 2020 12:00am sacubitril 24 mg / valsartan 26 mg oral tablet (6 sources) Angiotensin 2 Receptor Kemal Start: 01-21-2024 End: 09-12-2024 Sacubitril-Valsartan (Entresto) 24-26 mg tablet Active 1 {tbl} PO TWICE A DAY 180 September 12, 2024 11:19am Completed/Discontinued Medications Medication Drug Class(es) Dates Sig (Normalized) Sig (Original) 0.4 ml abatacept 125 mg/ml prefilled syringe (20 sources) Selective T Cell Costimulation Modulator Start: 12-13-2019 End: 09-12-2024 Abatacept 50 MG/0.4 ML syringe Discontinued 750 mg IV EVERY MONTH December 13, 2019 12:00am September 12, 2024 11:12am every 4 weeks Start: 12-13-2019 take 750 mg intraven ously every month Abatacept Active 750 MG IV EVERY MONTH December 13, 2019 12:00am every 4 weeks Start: 02-07-2013 End: 10-28-2018 take 1 dose intravenously every month Abatacept (With Maltose) (Orencia (With Maltose)) 250 MG/10 ML Vial Discontinued 750 mg IV EVERY MONTH February 07, 2013 12:00am October 28, 2018 4:30pm abatacept (Orenc ia) 250 MG injection Infuse 750 mg into a venous catheter every 28 (twenty-eight) days. 0 Active ABATACEPT/MALTOSE (ORENCIA INTRAVEN.) (10 sources) ABATACEPT/LORNE E (ORENCIA INTRAVEN.) Inject intravenously q 4 WEEKS. 0 Active Comment on above: Inject intravenously q 4 WEEKS. acetaminophen 300 mg / codeine phosphate 30 mg oral tablet (20 sources) Opioid Agonist Start: 9 End: 9 Acetaminophen-Codeine 1 TABLET tablet Discontinued 1 - 2 {tbl} PO EVERY 6 HOURS NEEDED as needed for Pain 30 4 October 28, 2018 12:00am October 31, 2018 12:00am November 01, 2018 12:07am Start: 10-28-2018 End: 11-01-2018 take 1 tablet by mouth every six hours as needed Acetaminophen-Codeine Discontinued 1 - 2 TABLET PO EVERY 6 HOURS NEEDED 30 4 October 28, 2018 12:00am November 01, 2018 12:07am Start: 10-28-2018 End: 11-01-2018 acetaminophen 500 mg / diphenhydrAMINE hydrochloride 25 mg oral tablet (20 sources) Histamine-1 Receptor Antagonist Start: 06-26-2015 End: 10-28-2018 take 1 tablet by mouth at bedtime Diphenhydramine-Acetaminophen (Tylenol Pm Ex-Strength Caplet) 1 EACH tablet Discontinued 500 mg PO AT BEDTIME June 26, 2015 1:00am October 28, 2018 4:30pm Start: 06-26-2015 End: 10-28-2018 acetaminophen 300 mg / HYDROcodone bitartrate 5 mg oral tablet (20 sources) Opioid Agonist Start: 10-28-2018 End: 11-01-2018 Hydrocodone-Acetaminophen 1 EACH tablet Discontinued 1 - 2 {tbl} PO EVERY 6 HOURS NEEDED as needed for Pain 24 3 October 28, 2018 October 30, 2018 12:00am November 01, 2018 12:07am Start: 10-28-2018 End: 11-01-2018 take 1 tablet by mouth every six hours as needed Hydrocodone-Acetaminophen Discontinued 1 - 2 TABLET PO EVERY 6 HOURS NEEDED 24 07October 28, 2018 November 01, 2018 12:07am Start: 10-28-2018 End: 11-01-2018 acetaminophen 325 mg / oxyCODONE hydrochloride 5 mg oral tablet (6 sources) Opioid Agonist Start: 05-18-2022 take 1 tablet by mouth every four hours as needed for pain oxyCODONE-acetaminophen (PERCOCET) 5-325 mg tablet Indications: 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 28 tablet 0 05/18/2022 Active Comment on above: Take 1 tablet by joaquín th every 4 hours as needed for pain. amiodarone hydrochloride 200 mg oral tablet (20 sources) Antiarrhythmic Start: 04-07-2023 End: 06-20-2024 take 1 tablet by mouth once daily Amiodarone 200 mg tablet Discontinued 200 mg PO DAILY May 25, 2023 2:56pm June 20, 2024 2:36pm Start: 01-22-2023 End: 02-25-2023 take 1 tablet by mouth once daily Amiodarone 200 mg tablet Discontinued 200 mg PO DAILY February 04, 2023 12:25pm February 25, 2023 8:12am Start: 01-22-2023 End: 02-04-2023 take 1 tablet by mouth twice daily, then take 1 tablet by mouth once daily Amiodarone 200 mg tablet Discontinued 200 mg PO DAILY 60 January 22, 2023 12:00am February 04, 2023 12:26pm 200mg PO BID x2 weeks followed by 200mg PO daily ascorbic acid 500 mg oral tablet (20 sources) Vitamin C Start: 02-07-2013 End: 08-23-2013 take 1 tablet by mouth once daily Ascorbic Acid (Vitamin C) (Vitamin C) 500 MG tablet Discontinued 500 mg PO DAILY@0800 February 07, 2013 12:00am August 23, 2013 11:19am aspirin 81 mg delayed release oral tablet (20 sources) Platelet Aggregation Inhibitor, Nonsteroidal Anti-inflammatory Drug Start: 05-04-2023 End: 01-21-2024 take 1 tablet by mouth once daily Aspirin (Adult Aspirin Regimen) 81 mg tablet,delayed release (DR/EC) Discontinued 81 mg PO DAILY May 04, 2023 1:00am January 21, 2024 1:59pm Start: 04-14-2020 End: 04-07-2023 take 1 tablet by mouth once daily Aspirin 81 MG tablet Discontinued 81 mg PO DAILY@0800 May 16, 2020 1:03am April 07, 2023 2:09pm Start: 04-21-2017 take 1 tablet by joaquín th once daily aspirin 81 mg chewable tablet Take 1 tablet by mouth once daily. 30 tablet 0 04/21/2017 Active Comment on above: Take 1 tablet by joaquín th once daily. atorvastatin 40 mg oral tablet (20 sources) HMG-CoA Reductase Inhibitor Start: End: take 1 tablet by mouth at bedtime Atorvastatin 40 MG tablet Discontinued 40 mg PO AT BEDTIME May 16, 2020 1:03am June 21, 2020 3:28pm Start: 04-14-2020 End: 06-21-2020 clopidogrel 75 mg oral tablet (20 sources) [id number] Platelet Inhibitor Start: 05-01-2020 End: 01-07-2023 take 1 tablet by mouth once daily Clopidogrel 75 mg tablet Discontinued 75 mg PO DAILY June 09, 2022 12:38pm January 07, 2023 12:09pm Comment on above: Take 75 mg by mouth once daily. 24 hr dilTIAZem hydrochloride 120 mg extended release oral capsule (20 sources) Calcium Channel Kemal Start: 04-15-2023 End: 05-04-2023 take 1 capsule by mouth once daily Diltiazem Hcl 120 mg capsule,extended release 24 hr Discontinued 120 mg PO DAILY April 15, 2023 1:00am May 04, 2023 3:43pm Start: 01-22-2023 End: 01-22-2023 take 1 capsule by mouth every twenty-four hours as needed Diltiazem Hcl 120 mg capsule,extended release 24 hr Discontinued 120 mg PO .PRN as needed for tachycardia January 22, 2023 8:42am January 22, 2023 2:43pm As needed if elevated heart rate does not respond to metoprolol Start: 01-22-2023 End: 01-22-2023 Diltiazem Hcl Discontinued 1 20 MG PO .PRN January 22, 2023 8:42am January 22, 2023 2:43pm As needed if elevated heart rate does not respond to metoprolol doxepin hydrochloride 25 mg oral capsule (3 sources) Tricyclic Antidepressant Start: 03-17-2006 DOXEPIN 25 MG CAP Indications: Rheumatoid arthritis(714.0) Take one(1) tablet daily. 90 3 03/17/2006 Active Comment on above: Take one(1) tablet d aily. doxycycline hyclate 100 mg oral capsule (8 sources) Tetracycline-class Drug Start: 07-04-2024 End: 07-11-2024 take 1 capsule by mouth twice daily Doxycycline Hyclate 100 mg capsule Discontinued 100 mg PO TWICE A DAY 14 July 04, 2024 1:00am July 10, 2024 12:00am July 11, 2024 12:11am Start: 05-05-2017 doxycycline mo nohydrate 100 mg tablet 0 05/05/2017 Active FLUoxetine 20 mg oral tablet (20 sources) Serotonin Reuptake Inhibitor Start: 12-12-2021 End: 12-24-2021 take 1 tablet by mouth once daily Fluoxetine 20 mg Tablet Discontinued 20 mg PO DAILY December 12, 2021 12:00am December 24, 2021 1:38pm folic acid 0.8 mg oral capsule (20 sources) Start: 05-04-2023 End: 07-16-2023 take 1 capsule by mouth once daily Folic Acid 0.8 mg capsule Discontinued 0.8 mg PO DAILY May 04, 2023 1:00am July 16, 2023 10:18am Start: 05-23-2020 End: 04-07-2023 take 1 tablet by mouth twice daily Folic Acid 1 mg tablet Discontinued 1 mg PO TWICE A DAY May 23, 2020 1:00am April 07, 2023 2:11pm Start: 02-07-2013 End: 05-23-2020 take 1 mg by mouth twice daily at mealtime Folic Acid 0.4 MG tablet Discontinued 1 mg PO TWICE DAILY WITH MEALS February 07, 2013 12:00am May 23, 2020 4:10pm Start: 02-07-2013 End: 05-23-2020 take 1 mg by mouth twice daily at mealtime Folic Acid Discontinued 1 MG PO TWICE DAILY WITH MEALS February 07, 2013 12:00am May 23, 2020 4:10pm take 1 mg by mouth twice daily F olic Acid 10 mg/mL Soln Take 1 mg by mouth twice daily. 0 Active Comment on above: Take 1 mg by mouth t wice daily. FOLIC ACID, BULK, MISC (7 sources) FOLIC ACID, BULK , MISC 1 tablet twice daily. 0 Active Comment on above: 1 tablet twice daily . hydroxychloroquine sulfate 200 mg oral tablet (3 sources) Antimalarial, Antirheumatic Agent take 1 tablet by mouth once daily hydroxychloroquine (PLAQUENIL) 200 mg tablet Take 200 mg by mouth once daily. 0 Active Comment on above: Take 200 mg by mouth once daily. 24 hr isosorbide mononitrate 30 mg extended release oral tablet (20 sources) Nitrate Vasodilator Start: 2020 End: 2020 take 1 tablet by mouth once daily, then take 1 tablet by mouth every twenty-four hours Isosorbide Mononitrate 30 mg tablet extended release 24 hr Discontinued 30 mg PO DAILY May 13, 2020 1:00am May 16, 2020 4:35pm leucovorin 15 mg oral tablet (20 sources) Folate Analog Start: 2016 End: 2023 take 1 tablet by mouth every week Leucovorin Calcium 15 mg tablet Discontinued 15 mg PO EVERY WEEK September 25, 2020 12:00am July 16, 2023 10:18am Start: 04-02-2016 End: 09-25-2020 Leucovorin Calcium 5 MG tabl et Discontinued 5 mg PO BRENNER April 02, 2016 1:00am September 25, 2020 3:15pm Sundays Comment on above: Take 5 mg by mouth o nce each week. Take 15 mg by mouth one time a week. lisinopril 2.5 mg oral tablet (20 sources) Angiotensin Converting Enzyme Inhibitor Start: 04-14-20 End: 05-01-20 take [id number] tablet by mouth once daily Lisinopril 2.5 MG tablet Discontinued 2.5 mg PO DAILY April 14, 2020 1:00am May 01, 2020 11:51am On Hold: 04/22- lightheadedness LORazepam 0.5 mg oral tablet (20 sources) Benzodiazepine Start: 02-05-20 End: 09-13-19 take 0.25 mg by mouth at bedtime as needed for anxiety Lorazepam 0.5 mg tablet Discontinued 0.25 mg PO AT BEDTIME as needed for anxiety February 04, 2023 12:00am September 12, 2024 11:13am Start: 02-04-2023 take 0.25 mg by mouth at bedti me Lorazepam Active 0.25 MG PO AT BEDTIME February 04, 2023 12:00am Start: 02-04-2023 MULTI-VITAMIN ORAL (10 sources) take 1 tablet by joaquín once daily MULTI-VITAMIN ORAL Take 1 tablet by mouth once daily. 0 Active MULTI-VITAMIN OR AL Take by mouth. 0 Active Comment on above: Take by mouth. Take 1 tablet by joaquín once daily. Multivitamin 1 EACH tablet (5 sources) Start: 02-07-2013 End: 04-22-2020 Multivitamin 1 EACH tablet Discontinued 1 NMA PO DAILY 0 February 07, 2013 12:00am April 22, 2020 11:01am Multivitamin preparation (20 sources) Start: 02-07-2013 End: 04-22-2020 Multivitamin Discontinued 1 EACH PO DAILY 0 February 07, 2013 11:18am April 22, 2020 11:01am Start: 02-07-2013 End: 04-22-2020 Multivitamin Discontinued 1 EACH PO DAILY 0 February 06, 2013 11:00pm April 22, 2020 10:01am Start: 02-07-2013 End: 04-22-2020 Multivitamin Discontinued 1 EACH PO DAILY 0 February 07, 2013 12:00am April 22, 2020 11:01am naproxen sodium 220 mg oral tablet (20 sources) Nonsteroidal Anti-inflammatory Drug Start: 02-07-2013 End: 04-14-2020 take 2 tablets by mouth once daily Naproxen Sodium (Aleve) 220 MG tablet Discontinued 440 mg PO DAILY February 07, 2013 12:00am April 14, 2020 11:16am NAPROXEN SODIUM (ALEVE ORAL) Take by mouth twice daily. 0 Active Comment on above: Take by mouth twice daily. [place]-3 Fatty Acids-Vitamin E 1,000 mg cap (10 sources) [place]-3 Fatty Acids-Vitamin E 1,000 mg cap Take 1 capsule by mouth. 0 Active Comment on above: Take 1 capsule by mo [facility]. omeprazole 40 mg delayed release oral capsule (3 sources) Proton Pump Inhibitor take 1 capsule by mouth once daily Omeprazole 40 mg capsule Take 40 mg by mouth once daily. 0 Active Comment on above: Take 40 mg by mouth once daily. pantoprazole 40 mg delayed release oral tablet (20 sources) Proton Pump Inhibitor Start: 03-28-20 End: 04-22-20 take 1 tablet by mouth once daily Pantoprazole 40 MG tablet Discontinued 40 mg PO DAILY April 17, 2017 1:00am April 22, 2020 11:01am ramipril 2.5 mg oral capsule (20 sources) Angiotensin Converting Enzyme Inhibitor Start: 09-25-19 14 End: 09-25-19 take 1 capsule by mouth once daily Ramipril 2.5 MG capsule Discontinued 2.5 mg PO DAILY September 24, 2013 12:00am September 24, 2013 9:42am 12 hr ranolazine 500 mg extended release oral tablet (20 sources) Anti-anginal Start: 02-05-20 End: 04-06-20 take 1 tablet by mouth twice daily Ranolazine (Ranexa) 500 mg tablet extended release 12 hr Discontinued 500 mg PO TWICE A DAY February 04, 2023 12:00am April 06, 2023 12:26pm spironolactone 25 mg oral tablet (20 sources) Aldosterone Antagonist Start: 04-07-20 End: 06-20-19 take 1 tablet by mouth once daily in the morning Spironolactone 25 mg tablet Discontinued 25 mg PO EVERY MORNING May 25, 2023 3:01pm June 20, 2024 2:36pm Start: 02-09-2023 End: 02-25-2023 take 1 tablet by mouth once daily in the morning Spironolactone 25 mg tablet Discontinued 25 mg PO EVERY MORNING February 09, 2023 4:58pm February 25, 2023 8:12am Start: 08-24-2022 End: 01-07-2023 take 1 tablet by mouth once daily in the morning Spironolactone (Aldactone) 50 mg tablet Discontinued 50 mg PO EVERY MORNING September 11, 2022 1:38pm January 07, 2023 11:55am ticagrelor 90 mg oral tablet (20 sources) Start: 04-14-2020 End: 05-01-2020 take 1 tablet by mouth twice daily Ticagrelor 90 MG tablet Discontinued 90 mg PO TWICE A DAY 60 April 14, 2020 1:00am May 01, 2020 10:20am triamcinolone acetonide 1 mg/ml topical cream (7 sources) Corticosteroid Start: 02-25-2022 triamcinolone acetonide (KENALOG) 0.1 % cream APPLY CREAM TO AFFECTED FLARES ON RIGHT SIDE OF NECK TWICE DAILY FOR 2 WEEKS, THEN TWICE WEEKLY NEEDED 0 02/25/2022 Active Comment on above: APPLY CREAM TO AFFEC DONAVON FLARES ON RIGHT SIDE OF NECK TWICE DAILY FOR 2 WEEKS, THEN TWICE WEEKLY NEEDED Vitamin G63-Eapyejh B1 5.5-12.5 mg-mcg/5 mL Liqd (10 sources) take 5.5-12.5 mg by mouth once daily Vitamin L59-Ajaralh B1 5.5-12.5 mg-mcg/5 mL Liqd Take 1 tablet by mouth once daily. 0 Active Vitamin S96-Liwb min B1 5.5-12.5 mg-mcg/5 mL Liqd Take by mouth. 0 Active Comment on above: Take by mouth. Take 1 tablet by [facility] once daily. vitamin b6 50 mg oral tablet (20 sources) Start: 02-07-2013 End: 08-23-2013 Pyridoxine (Vitamin B6) 50 MG tablet Discontinued 100 mg PO DAILY February 07, 2013 12:00am August 23, 2013 11:17am vitamin e 180 mg oral tablet (3 sources) Vitamin E 400 un it Tab Take by mouth once daily. 0 Active Comment on above: Take by mouth once d aily. (6 sources) Start: 02-07-2013 End: 04-22-2020 Problems Active Problems Problem Classification Problem Date Documented Date Episodic/Chronic Acute and unspecified renal failure (20 sources) Acute renal failure syndrome; Translations: [Acute kidney failure, unspecified] 02-23-2023 Episodic Acute myocardial infarction (20 sources) Myocardial infarction; Translations: [ST elevation (STEMI) myocardial infarction of unspecified site] Onset: 09-22-2022 05-15-2020 Chronic Blindness and vision defects (20 sources) Diplopia; Translations: [Diplopia] Onset: 07-18-2024 Episodic Cancer of breast (8 sources) Malignant tumor of breast ; Translations: [Malignant neoplasm of unspecified site of unspecified female breast] Onset: 09-22-2022 09-22-2022 Chronic Cancer of breast (20 sources) History of malignant neoplasm of breast; Translations: [Personal history of malignant neoplasm of breast] Onset: 09-11-2024 Episodic Comment on above: No evidence of disea se clinically. She is 86 so can skip mammogram and do physical exam.New pleural effusion and lung nodule.PET CT scan on 09/08/2022 shows hypermetabolic activity in the mediastinum and bilateral thoracic perihilar area, mild activity in right upper lobe does not fulfill quantitative criteria for malignancy.Biopsy of lung is negative. Cardiac dysrhythmias (20 sources) Paroxysmal atrial fibrillation; Translations: [Paroxysmal atrial fibrillation] Onset: 05-01-2024 01-06-2023 Chronic Comment on above: DEBRA cardioversion on 01/27/2023; Cardiac dysrhythmias (20 sources) Palpitations; Translations: [Palpitations] Episodic Chronic obstructive pulmonary disease and bronchiectasis (20 sources) Mild chronic obstructive pulmonary disease; Translations: [Chronic obstructive pulmonary disease, unspecified] 12-09-2020 Chronic Chronic ulcer of skin (20 sources) Chronic ulcer of lower extremity; Translations: [Non-pressure chronic ulcer of unspecified part of left lower leg with fat layer exposed] 05-10-2020 Chronic Complication of device; implant or graft (20 sources) Bone fixation device infection; Translations: [Infection and inflammatory reaction due to other internal orthopedic prosthetic devices, implants and grafts, initial encounter] Onset: 05-18-2022 Episodic Complications of surgical procedures or medical care (10 sources) Postmastectomy lymphedema syndrome; Translations: [Postmastectomy lymphedema syndrome] Onset: 01-06-2008 01-06-2008 Chronic Conduction disorders (20 sources) Complete atrioventricular block; Translations: [Atrioventricular block, complete] 02-23-2023 Chronic Comment on above: DPPM implant 3 @ [facility] Coronary atherosclerosis and other heart disease (20 sources) Coronary atherosclerosis; Translations: [Atherosclerotic heart disease of [place] coronary artery without angina pectoris] Onset: 05-05-2022 Chronic Comment on above: Drug-eluting stent t o mid RCA on 04/12/2020; Disorders of lipid metabolism (20 sources) Hyperlipidemia; Translations: [Hyperlipidemia, unspecified] Onset: 09-22-2022 Chronic E Codes: Fall (20 sources) Accidental fall ; Translations: [Fall (on) (from) other stairs and steps, initial encounter] 11-12-2022 Episodic Fluid and electrolyte disorders (20 sources) Hyponatremia; Translations: [Hypo-osmolality and hyponatremia] 02-24-2023 Episodic Heart valve disorders (20 sources) Mitral valve regurgitation; Translations: [Nonrheumatic mitral (valve) insufficiency] Chronic Immunizations and screening for infectious disease (20 sources) Infectious disease carrier; Translations: [Carrier of infectious disease, unspecified] 05-10-2020 Episodic Infective arthritis and osteomyelitis (except that caused by tuberculosis or sexually transmitted disease) (20 sources) Inflammatory disorder of extremity; Translations: [Osteomyelitis, unspecified] Onset: 05-18-2022 Chronic Malaise and fatigue (18 sources) Fatigue; Translations: [Other fatigue] 03-29-2023 Episodic Nonspecific chest pain (20 sources) Chest pain; Translations: [Chest pain, unspecified] Episodic Other aftercare (20 sources) Long-term current use of anticoagulant; Translations: [director long term care (current) use of anticoagulants] 01-18-2023 Episodic Other aftercare (5 sources) Long-term current use of diuretic; Translations: [Encounter for therapeutic drug level monitoring] 07-03-2024 Episodic Other aftercare (1 source) Encounter for follow-up examination after completed treatment for malignant neoplasm; Translations: [Encounter for follow-up examination after completed treatment for malignant neoplasm] Onset: 09-11-2024 Episodic Other bone disease and musculoskeletal deformities (20 sources) Osteopenia; Translations: [Other specified disorders of bone density and structure, unspecified site] 05-10-2020 Episodic Other bone disease and musculoskeletal deformities (20 sources) Other specified disorders of bone density and structure, unspecified site; Translations: [Disorder of bone and cartilage, unspecified] Episodic Other circulatory disease (20 sources) Device in situ; Translations: [Presence of other vascular implants and grafts] 01-25-2023 Chronic Other circulatory disease (1 source) Abnormal foot pulse; Translations: [Other specified symptoms and signs involving the circulatory and respiratory systems] Episodic Other circulatory disease (20 sources) Orthostatic hypotension; Translations: [Orthostatic hypotension] 01-03-2023 Episodic Other circulatory disease (11 sources) Orthostatic hypotension; Translations: [Orthostatic hypotension] 01-04-2023 Episodic Other connective tissue disease (4 sources) Recurrent falls ; Translations: [Repeated falls] 07-23-2024 Episodic Other injuries and conditions due to external causes (20 sources) Delayed healing of wound; Translations: [Other injury of unspecified body region, subsequent encounter] 05-10-2020 Episodic Other injuries and conditions due to external causes (20 sources) Closed injury of head; Translations: [Unspecified injury of head, initial encounter] 11-12-2022 Episodic Other lower respiratory disease (20 sources) Dyspnea on exertion; Translations: [Dyspnea, unspecified] 10-08-2020 Episodic Other lower respiratory disease (20 sources) Other forms of dyspnea; Translations: [Other respiratory abnormalities] Onset: 01-01-2023 Episodic Other lower respiratory disease (20 sources) Lung mass; Translations: [Other nonspecific abnormal finding of lung field] 08-24-2022 Episodic Comment on above: Had navigational bro nchoscopy & biopsy, histology was negative. It is stable in size. Other lower respiratory disease (20 sources) Other nonspecific abnormal finding of lung field; Translations: [Swelling, mass, or lump in chest] Onset: 09-11-2024 08-24-2022 Episodic Other lower respiratory disease (1 source) Nodule of lung; Translations: [Solitary pulmonary nodule] 01-05-2023 Episodic Other lower respiratory disease (1 source) Disorder of lower respiratory system; Translations: [Other disorders of lung] 08-03-2023 Episodic Other lower respiratory disease (5 sources) History of pleural effusion; Translations: [Personal history of other diseases of the respiratory system] 07-03-2024 Episodic Other lower respiratory disease (5 sources) Dyspnea; Translations: [Shortness of breath] 07-03-2024 Episodic Other lower respiratory disease (1 source) Shortness of breath; Translations: [Shortness of breath] Onset: 08-01-2024 Episodic Other nervous system disorders (2 sources) Other chronic pain; Translations: [Chronic pain of left ankle] Onset: 03-18-2022 Chronic Other non-traumatic joint disorders (20 sources) Swollen ankle region; Translations: [Effusion, left ankle] 05-15-2020 Episodic Other non-traumatic joint disorders (2 sources) Chronic ankle pain; Translations: [Pain in left ankle and joints of left foot] Episodic Other screening for suspected conditions (not mental disorders or infectious disease) (15 sources) Blood urea abnormal; Translations: [Abnormal finding of blood chemistry, unspecified] 05-04-2023 Episodic Elisa-; endo-; and myocarditis; cardiomyopathy (except that caused by tuberculosis or sexually transmitted disease) (20 sources) Cardiomyopathy; Translations: [Other cardiomyopathies] Onset: 03-08-2024 02-04-2023 Chronic Pleurisy; pneumothorax; pulmonary collapse (20 sources) Pleural effusion; Translations: [Pleural effusion, not elsewhere classified] Onset: 08-20-2022 08-24-2022 Episodic Comment on above: R/O metastatic disea se from breast cancer.Diagnostic thoracentesis on 08/25/2022, cytology was negative.CA 15 3 is elevated, 35.3 on 08/24/2022.CA 125 is elevated, 43 on 08/24/2022.FOB, EBUS of mediastinal node, biopsy show no malignant cells on 09/24/2022.Comes for follow up.No evidence of disease.Pleural fluid is stable on CXR done on . Residual codes; unclassified (3 sources) History of ankle surgery; Translations: [Other specified postprocedural states] Episodic Residual codes; unclassified (4 sources) Postoperative state; Translations: [Other specified postprocedural states] Episodic Rheumatoid arthritis and related disease (20 sources) Rheumatoid arthritis, unspecified; Translations: [Rheumatoid arthritis] Onset: 01-08-2006 01-08-2006 Chronic Spondylosis; intervertebral disc disorders; other back problems (1 source) Cervicalgia; Translations: [Cervicalgia] Onset: 07-27-2024 Episodic Sprains and strains (4 sources) Strain of neck muscle; Translations: [Strain of muscle, fascia and tendon at neck level, initial encounter] 07-23-2024 Episodic Superficial injury; contusion (20 sources) Contusion of coccyx; Translations: [Contusion of lower back and pelvis, initial encounter] 11-12-2022 Episodic Syncope (20 sources) Near syncope; Translations: [Syncope and collapse] 05-15-2020 Episodic Unclassified (1 source) Unknown / UNK(Unknown) Onset: 04-19-2017 Unclassified (1 source) 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); Translations: [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)] Onset: 04-09-2022 Unclassified (2 sources) Results; Translations: [Results] Onset: 08-03-2023 Viral infection (1 source) Herpes zoster; Translations: [Zoster without complications] 09-12-2024 Episodic Past or Other Problems Problem Classification Problem Date Documented Da te Episodic/Chronic Complications of surgical procedures or medical care (5 sources) Wound dehiscence; Translations: [Disruption of wound, unspecified, initial encounter] Onset: 03-18-2022 Episodic Coronary atherosclerosis and other heart disease (15 sources) Presence of coronary angioplasty implant and graft; Translations: [Percutaneous transluminal coronary angioplasty status] Onset: 04-12-2020 Episodic Fracture of lower limb (20 sources) [...] Onset: 03-18-2022 Episodic Other lower respiratory disease (9 sources) Solitary nodule of lung; Translations: [Solitary [...] initial encounter for closed fracture Onset: 04-17-2017 Unclassified (20 sources) Right-sided breast cancer status post 05-10-2020 Comment on above: Status post masectom y in 2006, following with Dr. Phillip Unclassified (20 sources) Contamination; Translations: [Contamination] 05-15-2020 Results Test Name Value Interpretation Reference Range Facility CBC W/Diff, Automatedon 05-3 0-2025 Absolute Lymph 1.07 X10 3/uL Normal 0.83-4.51 [facility] Comment on above: Performed By: #### L 500.4050, L100.0100 #### [facility] [address], [address] Absolute Neut 1.1 X10 3/uL Low 2.0-7.7 [facility] Comment on above: Performed By: #### L 500.4050, L100.0100 #### [facility] [address] [place], [address] Basophils/100 WBC (Bld) 0.7 % Normal 0-1 [facility] Comment on above: Performed By: #### L 500.4050, L100.0100 #### [facility] [address] [place], [address] Eosinophils/100 WBC (Bld) 0.7 % Normal 0-5 [facility] Comment on above: Performed By: #### L 500.4050, L100.0100 #### [facility] [address] [place], [address] Erythrocyte distribution width (RBC) [Ratio] 17.4 % High 11.6-14.6 [facility] Comment on above: Performed By: #### L 500.4050, L100.0100 #### [facility] [address] [place], [address] Hematocrit (Bld) [Volume fraction] 44.0 % Normal 37-47 [facility] Comment on above: Performed By: #### L 500.4050, L100.0100 #### [facility] [address] [place], [address] Hemoglobin (Bld) [Mass/Vol] 14.5 g/dL Normal 12.0-15.0 [facility] Comment on above: Performed By: #### L 500.4050, L100.0100 #### [facility] [address] [place] [place], [address] IG% 0.000 Normal 0.0-0.9 [facility] Comment on above: Result Comment: IG% - Immature Granulocytes (promyelocytes, myelocytes and metamyelocytes) > 1% indicates that a LEFT SHIFT is Present. Performed By: #### L 500.4050, L100.0100 #### [facility] [address] [place], [address] Lymphocytes/100 WBC (Bld) 39.3 % Normal 19-41 [facility] Comment on above: Performed By: #### L 500.4050, L100.0100 #### [facility] [address] [place], [address] MCH (RBC) [Entitic mass] 31.5 pg Normal 27.0-32.0 [facility] Comment on above: Performed By: #### L 500.4050, L100.0100 #### [facility] [address] [place], [address] MCHC (RBC) [Mass/Vol] 33.0 g/dL Normal 32-[address] [facility] Comment on above: Performed By: #### L 500.4050, L100.0100 #### [facility] [address] [place], [address] MCV (RBC) [Entitic vol] 95.7 fL Normal 81-99 [facility] Comment on above: Performed By: #### L 500.4050, L100.0100 #### [facility] [address] [place], [address] Monocytes/100 WBC (Bld) 19.9 % High 0-10 [facility] Comment on above: Performed By: #### L 500.4050, L100.0100 #### [facility] [address] [place], [address] Neutrophils/100 WBC (Bld) 39.4 % Low 47-70 [facility] Comment on above: Performed By: #### L 500.4050, L100.0100 #### [facility] [address] [place], [address] Nucleated RBC (Bld) [#/Vol] 0 10*3/uL Normal 0-5 [facility] Comment on above: Performed By: #### L 500.4050, L100.0100 #### [facility] [address] [place], [address] Platelet mean volume (Bld) [Entitic vol] 11.3 fL Normal 6.2-12.0 [facility] Comment on above: Performed By: #### L 500.4050, L100.0100 #### [facility] [address] [place], [address] Platelets (Bld) [#/Vol] 103 10*3/uL Low 150-450 [facility] Comment on above: Performed By: #### L 500.4050, L100.0100 #### [facility] [address] [place], [address] RBC (Bld) [#/Vol] 4.60 10*6/uL Normal 4.2-5.4 [facility] Comment on above: Performed By: #### L 500.4050, L100.0100 #### [facility] [address] [place], [address] RDW SD 60.5 fl High 35.1-43.9 [facility] Comment on above: Performed By: #### L 500.4050, L100.0100 #### [facility] [address] [place], [address] WBC (Bld) [#/Vol] 2.7 10*3/uL Low 4.4-11.0 [facility] Comment on above: Performed By: #### L 500.4050, L100.0100 #### [facility] [address] [place], [address] Comprehensive Metabolic Prof iaon 09-29-2024 Albumin [Mass/Vol] 4.0 g/dL Normal 3.4-4.8 [facility] Comment on above: Performed By: #### L 500.4050, L100.0100 #### [facility] [address] [place], [address] Albumin/Globulin [Mass ratio] 1.8 {ratio} Normal 0.9-2.4 [facility] Comment on above: Performed By: #### L 500.4050, L100.0100 #### [facility] [address] [place], [address] ALK PHOS 50 U/L Normal 35-104 [facility] Comment on above: Performed By: #### L 500.4050, L100.0100 #### [facility] [address] [place], [address] ALT [Catalytic activity/Vol] 18 U/L Normal <=34 [facility] Comment on above: Performed By: #### L 500.4050, L100.0100 #### [facility] [address] [place], [address] AST [Catalytic activity/Vol] 24 U/L Normal <=31 [facility] Comment on above: Performed By: #### L 500.4050, L100.0100 #### [facility] [address] [place], [address] Bilirubin [Mass/Vol] 0.80 mg/dL Normal 0.00-1.30 [facility] Comment on above: Performed By: #### L 500.4050, L100.0100 #### [facility] [address] [place], [address] BUN/CRE 27.3 RATIO High 10-20 [facility] Comment on above: Performed By: #### L 500.4050, L100.0100 #### [facility] [address] [place], [address] Calcium [Mass/Vol] 9.4 mg/dL Normal 7.6-11.0 [facility] Comment on above: Performed By: #### L 500.4050, L100.0100 #### [facility] [address] [place], [address] Chloride [Moles/Vol] 101 mmol/L Normal 98-108 [facility] Comment on above: Performed By: #### L 500.4050, L100.0100 #### [facility] [address] [place], [address] CO2 [Moles/Vol] 22.7 mmol/L Normal 21.0-32.0 [facility] Comment on above: Performed By: #### L 500.4050, L100.0100 #### [facility] [address] [place], [address] Creatinine [Mass/Vol] 1.14 mg/dL Normal 0.70-1.[address] [facility] Comment on above: Performed By: #### L 500.4050, L100.0100 #### [facility] [address] [place], [address] GAP 11 Normal 5-15 [facility] Comment on above: Performed By: #### L 500.4050, L100.0100 #### [facility] [address] [place], [address] GFR/1.73 sq M.predicted among non-blacks MDRD (S/P/Bld) [Vol rate/Area] 46 mL/min/{1.73_m2} Low >60 [facility] Comment on above: Result Comment: mL/m in/1.73m2 CKD-EPI Creatinine Equation (2020) Performed By: #### L 500.4050, L100.0100 #### [facility] [address] [place], [address] Globulin (S) [Mass/Vol] 2.2 g/dL Normal 2.2-4.2 [facility] Comment on above: Performed By: #### L 500.4050, L100.0100 #### [facility] [address] [place], [address] Glucose [Mass/Vol] 104 mg/dL High 70-99 [facility] Comment on above: Performed By: #### L 500.4050, L100.0100 #### [facility] [address] [place], [address] Potassium [Moles/Vol] 4.3 mmol/L Normal 3.3-5.[address] [facility] Comment on above: Performed By: #### L 500.4050, L100.0100 #### [facility] [address] [place], [address] Sodium [Moles/Vol] 135 mmol/L Normal 133-145 [facility] Comment on above: Performed By: #### L 500.4050, L100.0100 #### [facility] [address] [place], [address] T PROT 6.2 g/dL Normal 5.9-8.4 [facility] Comment on above: Performed By: #### L 500.4050, L100.0100 #### [facility] [address] [place], [address] Urea nitrogen [Mass/Vol] 31 mg/dL High 4-19 [facility] Comment on above: Performed By: #### L 500.4050, L100.0100 #### [facility] [address] [place], [address] Cardiology Visit Reporton Cardiology Visit Report [facility] [address] [place] [address] OFFICE VISIT Date of Service: 09/12/24 MR#: [id number] Acct: [id number] Name: ROBERTO FERGUSON Rep #: [id number] : 1935 Provider: Dr. Elias Arevalo MD Age/Sex: 89/F Location: [facility] Status: Signed HPI HPI History of Present Illness Details: Roberto Ferguson is an 89-year-old white female who presents today for a follow up on atrial flutter. She does have a hx of CAD status post inferior STEMI status post RCA thrombectomy and PTCA/stent in April 2020 MVP/MR, hyperlipidemia, hypertension, COPD, and hypothyroidism. As you recall, she underwent a stress test on 10/23/2020 was negative for ischemia. Her echocardiogram on 10/23/2020 showed ejection fraction of 65% and akinetic apex. She continued to expresses concerns regarding shortness of breath and underwent pulmonary function tests as well as laboratory evaluation. Her pulmonary function test on 11/19/2020 showed irreversible mild large airways obstructive ventilatory defect. Her BNP on 11/14/2020 was elevated 298.6. She was seen by pulmonology team on 12/09/2020. She continued to have shortness of breath despite inhaler medications. Thus, she underwent a heart catheterization to assess coronary artery disease component. She proceeded with heart catheterization on 01/02/2021 that showed patent mid RCA stent and LAD is angiographically normal with possible mid intramyocardial bridging segment with RADHA-3 flow in both systole and diastole. Circumflex was noted be angiographically normal. Medical therapy was recommended. She presented to the Emergency Department on 01/03/2023 for chest pain. Her EKG showed sinus rhythm with PACs. Her troponin was noted to be positive. She was admitted for orthostatic hypotension and laboratory monitoring. Her medications were adjusted and she was discharged for outpatient follow-up. She was then seen in the emergency department on 01/06/2023, 01/18/2023, and 01/27/2023. On 01/06/2023 she was noted be in atrial fibrillation. She was being set up for cardioversion, but converted to sinus rhythm. She continued to have shortness of breath and her medications were adjusted. She was ultimately started on amiodarone therapy and underwent a DEBRA guided cardioversion version for atrial flutter. Her DEBRA showed ejection fraction of 45%, moderately enlarged left atrium, and moderately enlarged right atrium. 02/23/2023 pt had called our office with concerning of low HR, feeling dizzy, SOB and near syncopal. She asked to present to the ER. On presentation she was noted to be in CHB. She underwent a PPM on 02/24/2023. She has done well since and continues to follow in device clinic. She does have some symptoms of fatigue and weakness but no chest pain no palpitations and no shortness of breath with any activity. 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 Required: No Accompanied by: Daughter Is patient in pain?: No Allergies ticagrelor (From Brilinta) Adverse Reaction (Severe, Verified 09/12/24 11:11) Severe dyspnea on exertion Medications ???Medication ???Instructions ???Recorded ???Confirmed ???Type acetaminophen 500 mg tablet 1,000 mg PO BID pain 04/12/2008/31 History levothyroxine 75 mcg tablet 100 mcg PO DAILY thyroid 04/06/23 09/12/24 History calcium carbonate 1,000 mg PO DAILY@0800 PRN 3 09/12/24 History indigestion dapagliflozin propanediol 10 mg 10 mg PO QAM #90 tabs 02/01/24 Rx tablet (Farxiga) metoprolol tartrate 50 mg tablet 50 mg PO BID #180 tabs 05/01/24 Rx amiodarone 200 mg tablet 200 mg PO DAILY #90 tabs 06/20/24 09/12/24 Rx spironolactone 25 mg tablet 25 mg PO QAM #90 tabs 06/20/24 Rx furosemide 40 mg tablet 40 mg PO QDAY #30 tabs 07/26/24 Rx apixaban 2.5 mg tablet 2.5 mg PO BID #180 tabs 09/12/24 0 09/12/24 Rx mirtazapine 30 mg tablet 45 mg PO DAILY 09/12/24 09/12/24 H istory sacubitril 24 mg-valsartan 26 mg 1 tab PO BID #180 tabs 09/12/24 Rx tablet (Entresto) Have you fallen in the past year?: Yes [facility] Medical History Shingles Atrial tachycardia Presence of permanent cardiac pacemaker CKD (chronic kidney disease) stage 3, GFR 30-59 ml/min Non-rheumatic mitral regurgitation Mitral valve insufficiency Rheumatoid arthritis STEMI (ST elevation myocardial infarction) Atherosclerosis of coronary artery of [place] heart without angina pectoris History of coronary artery stent placement (1 (more content not included)... Normal [facility] Anion gap in Serum or Plasma Ordered By: Sharad Londono on 07-28-2024 Anion gap [Moles/Vol] 16 mmol/L High - [facility] BUN/creatinine ratioOrdered By: Sharad Londono on 07-28-2024 Urea nitrogen/Creatinine [Mass ratio] 20.0 mg/mg - [facility] Basic Metabolic Profile (BMP )on 07-28-2024 BUN/CRE 20.0 RATIO Normal 02-19 [facility] Comment on above: Performed By: #### L 500.2500 #### [facility] [address] [place], [place], [id number] Calcium [Mass/Vol] 8.9 mg/dL Normal 7.6-11.0 [facility] Comment on above: Performed By: #### L 500.2500 #### [facility] [address] [place], [address] Chloride [Moles/Vol] 99 mmol/L Normal 98-108 [facility] Comment on above: Performed By: #### L 500.2500 #### [facility] [address] [place], [address] CO2 [Moles/Vol] 21.1 mmol/L Normal 21.0-32.0 [facility] Comment on above: Performed By: #### L 500.2500 #### [facility] [address] [place], [address] Creatinine [Mass/Vol] 1.05 mg/dL Normal 0.70-1.[address] [facility] Comment on above: Performed By: #### L 500.2500 #### [facility] [address] [place], [address] GAP 16 High 5-15 [facility] Comment on above: Performed By: #### L 500.2500 #### [facility] [address] [place], [address] GFR/1.73 sq M.predicted among non-blacks MDRD (S/P/Bld) [Vol rate/Area] 51 mL/min/{1.73_m2} Low >60 [facility] Comment on above: Result Comment: mL/m in/1.73m2 CKD-EPI Creatinine Equation (2020) Performed By: #### L 500.2500 #### [facility] [address] [place], [address] Glucose [Mass/Vol] 102 mg/dL High 70-99 [facility] Comment on above: Performed By: #### L 500.2500 #### [facility] [address] [place], [address] Potassium [Moles/Vol] 4.0 mmol/L Normal 3.3-5.[address] [facility] Comment on above: Result Comment: Hemo lysis present, Results??could be affected. ?? Performed By: #### L 500.2500 #### [facility] [address] [place], [place], [address] Sodium [Moles/Vol] 136 mmol/L Normal 133-145 [facility] Comment on above: Performed By: #### L 500.2500 #### [facility] [address] [place], [place], [address] Urea nitrogen [Mass/Vol] 21 mg/dL High 4-19 [facility] Comment on above: Performed By: #### L 500.2500 #### [facility] [address] [place], [place], [id number] Carbon dioxide, total [Moles /volume] in Central venous bloodOrdered By: Sharad Londono on 07-28-2024 CO2 [Moles/Vol] 21.1 mmol/L 21.0-32.0 [facility] Chloride assayOrdered By: Hailee Londono on 07-28-2024 Chloride [Moles/Vol] 99 mmol/L 98-108 [facility] GFR/1.73 sq M.predicted mario g non-blacks MDRD (S/P/Bld) [Vol rate/Area]Ordered By: Sharad Londono on 07-28-2024 Estimated GFR (MDRD) Non-Af Amer 51 Low >60 [facility] Comment on above: mL/min/1.73m2 CKD-EP I Creatinine Equation (2020) Glomerular filtration rate ( GFR) estimation/1.73 sq m using serum, plasma, or whole bOrdered By: Sharad Londono on 07-28-2024 GFR/1.73 sq M.predicted among non-blacks MDRD (S/P/Bld) [Vol rate/Area] 51 mL/min/{1.73_m2} Low >60 [facility] Comment on above: mL/min/1.73m2 CKD-EP I Creatinine Equation (2020) Potassium (Unsp spec) [Mass/ Vol]Ordered By: Sharad Londono on 07-28-2024 Potassium [Moles/Vol] 4.0 mmol/L 3.3-5.[address] [facility] Comment on above: Hemolysis present, R esults could be affected. Potassium measurement (mass/ volume)Ordered By: Sharad Londono on 07-28-2024 Potassium (Unsp spec) [Mass/Vol] 4.0 mmol/L 3.3-5.1 [facility] Comment on above: Hemolysis present, R esults could be affected. Serum creatinine measurement (mass/volume)Ordered By: Sharad Londono on 07-28-2024 Creatinine [Mass/Vol] 1.05 mg/dL 0.70-1.[address] [facility] Serum glucose measurement (m ass/volume)Ordered By: Sharad Londono on 07-28-2024 Glucose [Mass/Vol] 102 mg/dL High 70-99 [facility] Serum or plasma calcium criss urement (mass/volume)Ordered By: Sharad Londono on 07-28-2024 Calcium [Mass/Vol] 8.9 mg/dL 7.6-11.0 [facility] Serum or plasma urea nitroge n measurement (mass/volume)Ordered By: Sharad Londono on 07-28-2024 Urea nitrogen [Mass/Vol] 21 mg/dL High 4-19 [facility] Sodium levelOrdered By: Sharad Londono on 07-28-2024 Sodium [Moles/Vol] 136 mmol/L 133-145 [facility] Absolute lymphocyte countOrd ered By: Anant Cooper on 07-23-2024 Lymphocytes Auto (Unsp spec) [#/Vol] 0.73 10*3/uL Low 0.83-4.51 [facility] Absolute neutrophil countOrd ered By: Anant Cooper on 07-23-2024 Neutrophils (Bld) [#/Vol] 10.8 10*3/uL High 2.0-7.7 [facility] Anion gap in Serum or Plasma Ordered By: Anant Cooper on 07-23-2024 Anion gap [Moles/Vol] 15 mmol/L 5-[address] [facility] Automated lymphocyte count a s percentage of total leukocytesOrdered By: Anant Cooper on 07-23-2024 Lymphocytes/100 WBC Auto (Unsp spec) 5.7 % Low 19-41 [facility] BUN/creatinine ratioOrdered By: Anant Cooper on 07-23-2024 Urea nitrogen/Creatinine [Mass ratio] 33.3 mg/mg High 10-20 [facility] Basic Metabolic Profile (BMP )on 07-23-2024 BUN/CRE 33.3 RATIO High 10-20 [facility] Comment on above: Performed By: #### L 100.0100, L500.2500 #### [facility] [address] [place], [address] Calcium [Mass/Vol] 9.2 mg/dL Normal 7.6-11.0 [facility] Comment on above: Performed By: #### L 100.0100, L500.2500 #### [facility] [address] [place], [address] Chloride [Moles/Vol] 94 mmol/L Low 98-108 [facility] Comment on above: Performed By: #### L 100.0100, L500.2500 #### [facility] [address] [place], [address] CO2 [Moles/Vol] 18.3 mmol/L Low 21.0-32.0 [facility] Comment on above: Performed By: #### L 100.0100, L500.2500 #### [facility] [address] [place], [address] Creatinine [Mass/Vol] 1.23 mg/dL High 0.70-1.[address] [facility] Comment on above: Performed By: #### L 100.0100, L500.2500 #### [facility] [address] [place], [address] ECRCL 29.00 ml/min Low 50-250 [facility] Comment on above: Performed By: #### L 100.0100, L500.2500 #### [facility] [address] [place], [address] GAP 15 Normal 5-15 [facility] Comment on above: Performed By: #### L 100.0100, L500.2500 #### [facility] [address] [place], [address] GFR/1.73 sq M.predicted among non-blacks MDRD (S/P/Bld) [Vol rate/Area] 43 mL/min/{1.73_m2} Low >60 [facility] [facility] Comment on above: Result Comment: mL/m in/1.73m2 CKD-EPI Creatinine Equation (2020) Performed By: #### L 100.0100, L500.2500 #### [facility] [address] [place], [address] Glucose [Mass/Vol] 109 mg/dL High 70-99 [facility] Comment on above: Performed By: #### L 100.0100, L500.2500 #### [facility] [address] [place], [address] Potassium [Moles/Vol] 4.7 mmol/L Normal 3.3-5.[address] [facility] Comment on above: Performed By: #### L 100.0100, L500.2500 #### [facility] [address] [place], [address] Sodium [Moles/Vol] 128 mmol/L Low 133-145 [facility] Comment on above: Performed By: #### L 100.0100, L500.2500 #### [facility] [address] [place], [address] Urea nitrogen [Mass/Vol] 41 mg/dL High 4-19 [facility] Comment on above: Performed By: #### L 100.0100, L500.2500 #### [facility] [address] [place], [address] Basophil percentageOrdered B y: Anant Cooper on 07-23-2024 Basophils/100 WBC (Bld) 0.2 % 0-1 [facility] Bilirubin Test strip Ql (U)O rdered By: Anant Cooper on 07-23-2024 Bilirubin Ql (U) Negative Negative [facility] Brain/Head without Contrasto n 07-23-2024 Brain/Head without Contrast [facility] Imaging Services [address] [place], [place] [address] Brain/Head without Contrast MR#: [id number] Acct: [id number] Name: ROBERTO FERGUSON Rep #: [id number] : 1935 F 88 From: Ajith Akins PCP: Dr. Teagan Hall MD Status: REG ER Study: Brain/Head without Contrast Date of Exam: 07/02 07/25 Exam# [id number] Ordering Dr: Anant Cooper MD PROCEDURE: BRAIN/HEAD WITHOUT CONTRAST 07/23/2024 REASON FOR EXAM: INJURY/PAIN TECHNIQUE: CT head without contrast, with sagittal and coronal reconstructed images: COMPARISON: Head CT 01/03/2023 and brain MRI 06/14/2024 FINDINGS: Mild generalized cerebral cerebellar atrophy is seen, with symmetric ventricular enlargement consistent with the degree of atrophy. Bilateral cerebral white matter hypodensities are most consistent with chronic ischemic changes of small-vessel disease. No extra-axial fluid collection is noted. No orbital pathology is seen. The visualized paranasal sinuses appear clear, as do the mastoid air cells. No fracture is evident. CT/Brain/Head without Contrast IMPRESSION: 1. No intracranial hemorrhage or other acute process is seen. 2. No fracture site is evident. Reading Location: [address] CC: Dr. Teagan Hall MD; Dr. 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, [address] Basophils/100 WBC (Bld) 0.2 % Normal 0-1 [facility] Comment on above: Performed By: #### L 100.0100, L500.2500 #### [facility] [address] [place], [address] Eosinophils/100 WBC (Bld) 0.0 % Normal 0-5 [facility] Comment on above: Performed By: #### L 100.0100, L500.2500 #### [facility] [address] [place], [address] Erythrocyte distribution width (RBC) [Ratio] 14.4 % Normal 11.6-14.6 [facility] Comment on above: Performed By: #### L 100.0100, L500.2500 #### [facility] [address] [place], [address] Hematocrit (Bld) [Volume fraction] 47.1 % High 37-47 [facility] Comment on above: Performed By: #### L 100.0100, L500.2500 #### [facility] [address] [place], [address] Hemoglobin (Bld) [Mass/Vol] 15.9 g/dL High 12.0-15.0 [facility] Comment on above: Performed By: #### L 100.0100, L500.2500 #### [facility] [address] [place], [address] IG% 0.500 Normal 0.0-0.9 [facility] Comment on above: Result Comment: IG% - Immature Granulocytes (promyelocytes, myelocytes and metamyelocytes) > 1% indicates that a LEFT SHIFT is Present. Performed By: #### L 100.0100, L500.2500 #### [facility] [address] [place], [address] Lymphocytes/100 WBC (Bld) 5.7 % Low 19-41 [facility] Comment on above: Performed By: #### L 100.0100, L500.2500 #### [facility] [address] [place], [address] MCH (RBC) [Entitic mass] 32.0 pg Normal 27.0-32.0 [facility] Comment on above: Performed By: #### L 100.0100, L500.2500 #### [facility] [address] [place], [address] MCHC (RBC) [Mass/Vol] 33.8 g/dL Normal 32-[address] [facility] Comment on above: Performed By: #### L 100.0100, L500.2500 #### [facility] [address] [place], [address] MCV (RBC) [Entitic vol] 94.8 fL Normal 81-99 [facility] Comment on above: Performed By: #### L 100.0100, L500.2500 #### [facility] [address] [place], [address] Monocytes/100 WBC (Bld) 9.5 % Normal 0-10 [facility] Comment on above: Performed By: #### L 100.0100, L500.2500 #### [facility] [address] [place], [address] Neutrophils/100 WBC (Bld) 84.1 % High 47-70 [facility] Comment on above: Performed By: #### L 100.0100, L500.2500 #### [facility] [address] [place], [address] Nucleated RBC (Bld) [#/Vol] 0 10*3/uL Normal 0-5 [facility] Comment on above: Performed By: #### L 100.0100, L500.2500 #### [facility] [address] [place], [address] Platelet mean volume (Bld) [Entitic vol] 11.6 fL Normal 6.2-12.0 [facility] Comment on above: Performed By: #### L 100.0100, L500.2500 #### [facility] [address] [place], [address] Platelets (Bld) [#/Vol] 111 10*3/uL Low 150-450 [facility] Comment on above: Performed By: #### L 100.0100, L500.2500 #### [facility] [address] [place], [address] RBC (Bld) [#/Vol] 4.97 10*6/uL Normal 4.2-5.4 [facility] Comment on above: Performed By: #### L 100.0100, L500.2500 #### [facility] [address] [place], [address] RDW SD 50.2 fl High 35.1-43.9 [facility] Comment on above: Performed By: #### L 100.0100, L500.2500 #### [facility] [address] [place], [address] WBC (Bld) [#/Vol] 12.9 10*3/uL High 4.4-11.0 [facility] Comment on above: Performed By: #### L 100.0100, L500.2500 #### [facility] [address] [place], [address] Carbon dioxide, total [Moles /volume] in Central venous bloodOrdered By: Anant Cooper on 07-23-2024 CO2 [Moles/Vol] 18.3 mmol/L Low 21.0-32.0 [facility] Chloride assayOrdered By: Shyla Cooper on 07-23-2024 Chloride [Moles/Vol] 94 mmol/L Low 98-108 [facility] Emergency Department Summary on 07-23-2024 Emergency Department Summary [facility] Medical Records Department [address] [place] [address] Emergency Department Summary 07/23/24 MR#: [id number] Acct: [id number] Name: ROBERTO FERGUSON Rep #: [id number] : 1935 88 From: Anant Cooper MD PCP: Dr. Teagan Hall MD Status:REG ER Location: ED HPI History of Present Illness Chief Complaint: Fall Detail of Chief Complaint: Fall, forehead and face trauma, neck pain and daughter requested UA because Informant: patient and family Onset/Context/Timing Onset: Days Context: Sudden Onset Timing: Continuous (Pain has been continuous since falls) and Intermittent Quality: HPI narrative for complete detail Location: Incidences of occurred at home. Lives alone Current Severity: Mild Maximum Severity: Moderate Worsened by: Movement Relieved by: Nothing Associated Symptoms Associated Symptoms: Nothing Narrative Narrative: Patient is an 88-year-old woman. She is a poor informant. Daughter was the primary informant. Patient's had several falls over the past several days. Since she has had the fall she is complained of neck pain. Today daughter was concerned because he is on Eliquis and has bilateral periorbital ecchymosis. She does complain of headache. The headache is worse than what has been the past couple of days. She is forgetful. She has history of diplopia. Patient denies nausea or vomiting. Patient denies chest pain or shortness of breath. Patient denies urologic symptoms however she does not have a good memory. Prior similar symptoms: Yes Recent Illness/Hospitalization: No PFSH PFSH Medical History Atrial tachycardia Presence of permanent cardiac pacemaker CKD (chronic kidney disease) stage 3, GFR 30-59 ml/min Non-rheumatic mitral regurgitation Mitral valve insufficiency Rheumatoid arthritis STEMI (ST elevation myocardial infarction) Atherosclerosis of coronary artery of [place] heart without angina pectoris History of coronary artery stent placement (04/12/20) Osteomyelitis of left lower extremity 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 Colonization status Contamination 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 Venous insufficiency (chronic) (peripheral) Delayed wound healing Other specified peripheral vascular diseases Non-pressure chronic ulcer of unspecified part of left lower leg with fat layer exposed Staph infection Left ankle swelling History of malignant neoplasm of right breast Fx cervical vert NOS-closed Fx clavicle Arthritis Malignant neoplasm of right female breast Osteopenia Home Medications ???Medication ???Instructions ???Recorded ???Last Taken ???Type abatacept 50 mg/0.4 mL 750 mg IV QMONTH arthritis 0 Unknown History subcutaneous syringe acetaminophen 500 mg tablet 1,000 mg PO BID pain 04/12/2005/03 History lorazepam 0.5 mg tablet 0.25 mg PO QHS PRN anxiety 3 Unknown History levothyroxine 75 mcg tablet 100 mcg PO DAILY thyroid 04/06/23 05/07/23 History calcium carbonate 1,000 mg PO DAILY@0800 PRN 3 Unknown History indigestion apixaban 2.5 mg tablet 2.5 mg PO BID #180 tabs 10/15/23 U nknown Rx mirtazapine 30 mg tablet 30 mg PO DAILY 01/21/24 Unknown Hi story sacubitril 24 mg-valsartan 26 mg 1 tab PO BID #180 tabs 01/21/24 Un known Rx tablet (Entresto) dapagliflozin propanediol 10 mg 10 mg PO QAM #90 tabs 02/01/24 Unk nown Rx tablet (Farxiga) metoprolol tartrate 50 mg tablet 50 mg PO BID #180 tabs 05/01/24 Un known Rx amiodarone 200 mg tablet 200 mg PO DAILY #90 tabs 06/20/24 Unknown Rx spironolactone 25 mg tablet 25 mg PO QAM #90 tabs 06/20/24 Unk nown Rx furosemide 40 mg tablet 40 mg PO .COMPLEX #30 tabs 5 Unknown Rx Allergy/AdvReac Type Severity Reaction Status Date / Time ticagrelor (From Brilinta) AdvReac Severe Severe Verified 07/23/24 14:26 dyspnea on exertion Family History Father Clotting disorder Heart disease Surgical History History of cardioversion (01/27/23) History of ankle surgery History of left heart catheterization (LHC) ( 01/02/21) Presence of coronary angioplasty implant and graft ( 04/12/20) History of arthroplasty of left ankle History of tubal ligation History of mastectomy Social History Smoking Status: Never smoker alcohol intake: never substance use type: does not use caffeine: Yes ROS ROS ED Review of Systems ROS Unobtainable: due to mental status Constitutional Constitutional ED: Denies chills, fever(s) or subjective Eyes Eyes: Reports diplopia; Denies blurry vision or change in vision ENT ENT ED: Denies ear pain, rhinorrh (more content not included)... Normal [facility] Eosinophil percentageOrdered By: Anant Cooper on 07-23-2024 Eosinophils/100 WBC (Bld) 0.0 % 0-5 [facility] Epithelial cells.squamous LM Ql (Urine sed)Ordered By: Anant Cooper on 07-23-2024 Epithelial cells.squamous LM.HPF (Urine sed) [#/Area] 0 /[HPF] 5-10 [facility] Erythrocyte distribution wid th ratioOrdered By: Anant Cooper on 07-23-2024 Erythrocyte distribution width (RBC) [Ratio] 14.4 % 11.6-14.6 [facility] Erythrocyte distribution wid th standard deviationOrdered By: Anantkarla Cooper on 07-23-2024 Erythrocyte distribution width (RBC) [Entitic vol] 50.2 fL High 35.1-43.9 [facility] Erythrocyte distribution width (RBC) [Ratio] 50.2 fl High 35.1-43.9 [facility] Estimation of creatinine douglas aranceOrdered By: Anant Cooper on 07-23-2024 Estimated Creatinine Clearance Calc 29.00 ml/min Low 50-250 [facility] GFR/1.73 sq M.predicted mario g non-blacks MDRD (S/P/Bld) [Vol rate/Area]Ordered By: Anant Cooper on 07-23-2024 Estimated GFR (MDRD) Non-Af Amer 43 Low >60 [facility] Comment on above: mL/min/1.73m2 CKD-EP I Creatinine Equation (2020) Glomerular filtration rate ( GFR) estimation/1.73 sq m using serum, plasma, or whole bOrdered By: Anant Cooper on 07-23-2024 GFR/1.73 sq M.predicted among non-blacks MDRD (S/P/Bld) [Vol rate/Area] 43 mL/min/{1.73_m2} Low >60 [facility] Comment on above: mL/min/1.73m2 CKD-EP I Creatinine Equation (2020) Glucose Ql (U)Ordered By: Shyla Cooper on 07-23-2024 Glucose (U) [Mass/Vol] 1000 mg/dL High Normal [facility] Hematocrit Auto (Bld) [Volum e fraction]Ordered By: Anant Cooper on 07-23-2024 Hematocrit (Bld) [Volume fraction] 47.1 % High 37-47 [facility] Hemoglobin measurementOrdere d By: Anant Cooper on 07-23-2024 Hemoglobin (Bld) [Mass/Vol] 15.9 g/dL High 12.0-15.0 [facility] Immature granulocytes/100 WB C Auto (Bld)Ordered By: Anant Cooper on 07-23-2024 Immature granulocytes/100 WBC (Bld) 0.500 % 0.0-0.9 [facility] Comment on above: IG% - Immature Granu locytes (promyelocytes, myelocytes and metamyelocytes) > 1% indicates that a LEFT SHIFT is Present. Ketones Test strip Ql (U)Ord ered By: Anant Cooper on 07-23-2024 Ketones Ql (U) Negative Negative [facility] Lymphocytes Auto (Unsp spec) [#/Vol]Ordered By: Anant Cooper on 07-23-2024 Lymphocytes (Bld) [#/Vol] 0.73 10*3/uL Low 0.83-4.51 [facility] Lymphocytes/100 WBC Auto (Un sp spec)Ordered By: Anant Cooper on 07-23-2024 Lymphocytes/100 WBC (Bld) 5.7 % Low 19-41 [facility] MCV (mean corpuscular volume ) determinationOrdered By: Anant Cooper on 07-23-2024 MCV (RBC) [Entitic vol] 94.8 fL 81-99 [facility] Mean corpuscular hemoglobin (MCH) determinationOrdered By: Anant Cooper on 07-23-2024 MCH (RBC) [Entitic mass] 32.0 pg 27.0-32.0 [facility] Mean corpuscular hemoglobin concentration (MCHC) determinationOrdered By: Anant Cooper on 07-23-2024 MCHC (RBC) [Mass/Vol] 33.8 g/dL 32-[address] [facility] Mean platelet volume determi nationOrdered By: Anant Cooper on 07-23-2024 Platelet mean volume (Bld) [Entitic vol] 11.6 fL 6.2-12.0 [facility] Microscopic analysis of urin e for red blood cells (RBC)Ordered By: Anant Cooper on 07-23-2024 Microscopic analysis of urine for red blood cells (RBC) 0-5 SEEN /hpf 0-5 [facility] Urine RBC 0-5 SEEN /hpf 0-5 [facility] Monocyte percentageOrdered B y: Anant Cooper on 07-23-2024 Monocytes/100 WBC (Bld) 9.5 % 0-10 [facility] Mucus LM Ql (Urine sed)Order ed By: Anant Cooper on 07-23-2024 Mucus Ql (Urine sed) 0 SEEN /hpf [facility] Neutrophil percentageOrdered By: Anant Cooper on 07-23-2024 Neutrophils/100 WBC (Bld) 84.1 % High 47-70 [facility] Nitrite Test strip Ql (U)Ord ered By: Anant Cooper on 07-23-2024 Nitrite Ql (U) Negative Negative [facility] Nucleated red blood cell per centageOrdered By: Anant Cooper on 07-23-2024 Nucleated RBC/100 WBC (Bld) [Ratio] 0 % 0-5 [facility] Platelet countOrdered By: Shyla Cooper on 07-23-2024 Platelets (Bld) [#/Vol] 111 10*3/uL Low 150-450 [facility] Potassium (Unsp spec) [Mass/ Vol]Ordered By: Anant Cooper on 07-23-2024 Potassium [Moles/Vol] 4.7 mmol/L 3.3-5.[address] [facility] Potassium measurement (mass/ volume)Ordered By: Anant Cooper on 03-23-2025 Potassium (Unsp spec) [Mass/Vol] 4.7 mmol/L 3.3-5.1 [facility] Protein Test strip Ql (U)Ord ered By: Anant Cooper on 07-23-2024 Protein Ql (U) 30 mg/dl High Negative [facility] RBC Auto (Bld) [#/Vol]Ordere d By: Anant Cooper on 07-23-2024 RBC (Bld) [#/Vol] 4.97 10*6/uL 4.2-5.4 [facility] Serum creatinine measurement (mass/volume)Ordered By: Anant Cooper on 07-23-2024 Creatinine [Mass/Vol] 1.23 mg/dL High 0.70-1.[address] [facility] Serum glucose measurement (m ass/volume)Ordered By: Anant Cooper on 07-23-2024 Glucose [Mass/Vol] 109 mg/dL High 70-99 [facility] Serum or plasma calcium criss urement (mass/volume)Ordered By: Anant Cooper on 07-23-2024 Calcium [Mass/Vol] 9.2 mg/dL 7.6-11.0 [facility] Serum or plasma urea nitroge n measurement (mass/volume)Ordered By: Anant Cooper on 07-23-2024 Urea nitrogen [Mass/Vol] 41 mg/dL High 4-19 [facility] Sodium levelOrdered By: Anant Cooper on 07-23-2024 Sodium [Moles/Vol] 128 mmol/L Low 133-145 [facility] Spine Cervical without Contr ason 07-23-2024 Spine Cervical without Contras [facility] Imaging Services [address] [place] [address] Spine Cervical without Contras MR#: [id number] Acct: [id number] Name: ROBERTO FERGUSON Rep #: [id number] : 1935 F 88 From: Ajith Akins PCP: Dr. Teagan Hall MD Status: [facility] ER Study: Spine Cervical without Contras Date of Exam: 0 07/23/24 Exam# [id number] Ordering Dr: Anant Cooper MD PROCEDURE: SPINE CERVICAL WITHOUT CONTRAS 07/23/2024 REASON FOR EXAM: INJURY/PAIN TECHNIQUE: Cervical spine CT without contrast. Coronal and Sagittal reconstruction series were provided. One or more dose reduction techniques were used (e.g., Automated exposure control, adjustment of the mA and/or kV according to patient size, use of iterative reconstruction technique RADIATION DOSE SUMMARY: CTDlvol: 50.01 mGy DLP: 1104.49 mGycm COMPARISON: Cervical CT examination of 08/19/2022 FINDINGS: Alignment: Stable appearance of anterior subluxation of C4 upon C5 and of C5 upon C6, compared with the prior examination 08/19/2022.. Vertebrae: Degenerative changes are again seen at the atlantodental articulation. Disc space narrowing is again moderately severe in the C6-C7 level. Prominent mid to lower cervical spine posterior facet hypertrophy is again seen. No significant spinal canal stenosis is noted. No fracture site is seen. Soft Tissues: No prevertebral soft tissue swelling is noted. At the lung apices, again seen is a prominent asymmetric area of right apical pleural-parenchymal scarring, fairly similar to the prior examination. CT/Spine Cervical without Contras IMPRESSION: 1. No fracture is noted. 2. Stable subluxation compared to the prior CT examination of 08/19/2022. 3. Degenerative changes are again noted, fairly similar to the prior examination. Reading Location: [address] CC: Dr. Teagan Hall MD; Dr. 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, [address] RBC 0-5 SEEN Normal 0-5 [facility] Comment on above: Order Comment: Strai ght cath if not able to stand to perform CCCLEAN CATCH Performed By: #### L 500.4050, L100.0100 #### [facility] [address] [place], [address] BACTERIA 0 SEEN Normal None Seen [facility] Comment on above: Order Comment: Strai ght cath if not able to stand to perform CCCLEAN CATCH Performed By: #### L 500.4050, L100.0100 #### [facility] [address] [place], [address] Mucus Ql (Urine sed) 0 SEEN Normal [facility] Comment on above: Order Comment: Strai ght cath if not able to stand to perform CCCLEAN CATCH Performed By: #### L 500.4050, L100.0100 #### [facility] [address] [place], [address] WBC 0 SEEN Normal 0-5 [facility] Comment on above: Order Comment: Strai ght cath if not able to stand to perform CCCLEAN CATCH Performed By: #### L 500.4050, L100.0100 #### [facility] [address] [place], [address] Urine blood detectionOrdered By: Anant Cooper on 07-23-2024 Urine Occult Blood 25 /ul High Negative [facility] Urine clarityOrdered By: Anant Cooper on 07-23-2024 Clarity (U) Clear Clear [facility] Urine color determinationOrd ered By: Anant Cooper on 07-23-2024 Color (U) Yellow Yellow [facility] Urine glucose detectionOrder ed By: Anant Cooper on 07-23-2024 Glucose Ql (U) 1000 mg/dl High Normal [facility] Urine leukocyte esterase det ection by dipstickOrdered By: Anant Cooper on 07-23-2024 Leukocyte esterase Test strip Ql (U) Negative Negative [facility] Urine pHOrdered By: Anant cuenca on 07-23-2024 pH (U) 5.0 [pH] 5.0 - 8.0 [facility] Urine sediment bacteria coun t by microscopy (number/high power field)Ordered By: Anant Anneo on 07-23-2024 Bacteria LM.HPF (Urine sed) [#/Area] 0 /[HPF] None Seen [facility] Urine specific gravity measu rementOrdered By: Anantkarla Anneo on 07-23-2024 Specific gravity (U) [Rel density] 1.015 1.002-1.03 0 [facility] Urine urobilinogen measureme ntOrdered By: Anantkarla Anneo on 07-23-2024 Urobilinogen Ql (U) Normal mg/dl Normal [facility] Urobilinogen Ql (U)Ordered B y: Anant Anneo on 07-23-2024 Urine Urobilinogen Normal mg/dl Normal [facility] White blood cell (WBC) count Ordered By: Anantkarla Anneo on 07-23-2024 WBC (Bld) [#/Vol] 12.9 10*3/uL High 4.4-11.0 [facility] White blood cell countOrdere d By: Anant Cooper on 07-23-2024 Urine WBC 0 SEEN /hpf 0-5 [facility] White blood cell count 0 SEEN /hpf 0-5 [facility] Absolute lymphocyte countOrd ered By: Holli Gaona on 07-22-2024 Lymphocytes Auto (Unsp spec) [#/Vol] 0.69 10*3/uL Low 0.83-4.51 [facility] Absolute neutrophil countOrd ered By: Holli Gaona on 07-22-2024 Neutrophils (Bld) [#/Vol] 6.2 10*3/uL 2.0-7.7 [facility] Anion gap in Serum or Plasma Ordered By: Holli Gaona on 07-22-2024 Anion gap [Moles/Vol] 15 mmol/L 5-[address] [facility] Automated lymphocyte count a s percentage of total leukocytesOrdered By: Holli Gaona on 07-22-2024 Lymphocytes/100 WBC Auto (Unsp spec) 9.2 % Low 19-41 [facility] BUN/creatinine ratioOrdered By: Holli Gaona on 07-22-2024 Urea nitrogen/Creatinine [Mass ratio] 27.6 mg/mg High - [facility] Basic Metabolic Profile (BMP )on 07-22-2024 BUN/CRE 27.6 RATIO High - [facility] Comment on above: Performed By: #### L 503.7505, L100.0100, L500.2500 #### [facility] [address] [place], [address] Calcium [Mass/Vol] 9.2 mg/dL Normal 7.6-11.0 [facility] Comment on above: Performed By: #### L 503.7505, L100.0100, L500.2500 #### [facility] [address] [place], [address] Chloride [Moles/Vol] 95 mmol/L Low 98-108 [facility] Comment on above: Performed By: #### L 503.7505, L100.0100, L500.2500 #### [facility] [address] [place], [address] CO2 [Moles/Vol] 20.1 mmol/L Low 21.0-32.0 [facility] Comment on above: Performed By: #### L 503.7505, L100.0100, L500.2500 #### [facility] [address] [place], [address] Creatinine [Mass/Vol] 1.17 mg/dL Normal 0.70-1.[address] [facility] Comment on above: Performed By: #### L 503.7505, L100.0100, L500.2500 #### [facility] [address] [place], [address] GAP 15 Normal 5-15 [facility] Comment on above: Performed By: #### L 503.7505, L100.0100, L500.2500 #### [facility] [address] [place], [address] GFR/1.73 sq M.predicted among non-blacks MDRD (S/P/Bld) [Vol rate/Area] 45 mL/min/{1.73_m2} Low >60 [facility] Comment on above: Result Comment: mL/m in/1.73m2 CKD-EPI Creatinine Equation (2020) Performed By: #### L 503.7505, L100.0100, L500.2500 #### [facility] [address] [place], [address] Glucose [Mass/Vol] 182 mg/dL High 70-99 [facility] Comment on above: Performed By: #### L 503.7505, L100.0100, L500.2500 #### [facility] [address] [place], [address] Potassium [Moles/Vol] 4.9 mmol/L Normal 3.3-5.[address] [facility] Comment on above: Performed By: #### L 503.7505, L100.0100, L500.2500 #### [facility] [address] [place], [address] Sodium [Moles/Vol] 130 mmol/L Low 133-145 [facility] Comment on above: Performed By: #### L 503.7505, L100.0100, L500.2500 #### [facility] [address] [place], [address] Urea nitrogen [Mass/Vol] 32 mg/dL High 4-19 [facility] Comment on above: Performed By: #### L 503.7505, L100.0100, L500.2500 #### [facility] [address] [place], [address] Basophil percentageOrdered B y: Holli Gaona on 07-22-2024 Basophils/100 WBC (Bld) 0.4 % 0-1 [facility] CBC W/Diff, Automatedon 03- Absolute Lymph 0.69 X10 3/uL Low 0.83-4.51 [facility] Comment on above: Performed By: #### L 503.7505, L100.0100, L500.2500 #### [facility] [address] [place], [address] Absolute Neut 6.2 X10 3/uL Normal 2.0-7.7 [facility] Comment on above: Performed By: #### L 503.7505, L100.0100, L500.2500 #### [facility] [address] [place], [address] Basophils/100 WBC (Bld) 0.4 % Normal 0-1 [facility] Comment on above: Performed By: #### L 503.7505, L100.0100, L500.2500 #### [facility] [address] [place], [address] Eosinophils/100 WBC (Bld) 0.3 % Normal 0-5 [facility] Comment on above: Performed By: #### L 503.7505, L100.0100, L500.2500 #### [facility] [address] [place], [address] Erythrocyte distribution width (RBC) [Ratio] 14.3 % Normal 11.6-14.6 [facility] Comment on above: Performed By: #### L 503.7505, L100.0100, L500.2500 #### [facility] [address] [place], [address] Hematocrit (Bld) [Volume fraction] 48.4 % High 37-47 [facility] Comment on above: Performed By: #### L 503.7505, L100.0100, L500.2500 #### [facility] [address] [place], [address] Hemoglobin (Bld) [Mass/Vol] 16.1 g/dL High 12.0-15.0 [facility] Comment on above: Performed By: #### L 503.7505, L100.0100, L500.2500 #### [facility] [address] [place], [address] IG% 0.300 Normal 0.0-0.9 [facility] Comment on above: Result Comment: IG% - Immature Granulocytes (promyelocytes, myelocytes and metamyelocytes) > 1% indicates that a LEFT SHIFT is Present. Performed By: #### L 503.7505, L100.0100, L500.2500 #### [facility] [address] [place], [address] Lymphocytes/100 WBC (Bld) 9.2 % Low 19-41 [facility] Comment on above: Performed By: #### L 503.7505, L100.0100, L500.2500 #### [facility] [address] [place], [address] MCH (RBC) [Entitic mass] 32.1 pg High 27.0-32.0 [facility] Comment on above: Performed By: #### L 503.7505, L100.0100, L500.2500 #### [facility] [address] [place], [address] MCHC (RBC) [Mass/Vol] 33.3 g/dL Normal 32-[address] [facility] Comment on above: Performed By: #### L 503.7505, L100.0100, L500.2500 #### [facility] [address] [place], [address] MCV (RBC) [Entitic vol] 96.6 fL Normal 81-99 [facility] Comment on above: Performed By: #### L 503.7505, L100.0100, L500.2500 #### [facility] [address] [place], [address] Monocytes/100 WBC (Bld) 8.1 % Normal 0-10 [facility] Comment on above: Performed By: #### L 503.7505, L100.0100, L500.2500 #### [facility] [address] [place], [address] Neutrophils/100 WBC (Bld) 81.7 % High 47-70 [facility] Comment on above: Performed By: #### L 503.7505, L100.0100, L500.2500 #### [facility] [address] [place], [address] Nucleated RBC (Bld) [#/Vol] 0 10*3/uL Normal 0-5 [facility] Comment on above: Performed By: #### L 503.7505, L100.0100, L500.2500 #### [facility] [address] [place], [address] Platelet mean volume (Bld) [Entitic vol] 11.2 fL Normal 6.2-12.0 [facility] Comment on above: Performed By: #### L 503.7505, L100.0100, L500.2500 #### [facility] [address] [place], [address] Platelets (Bld) [#/Vol] 122 10*3/uL Low 150-450 [facility] Comment on above: Performed By: #### L 503.7505, L100.0100, L500.2500 #### [facility] [address] [place], [address] RBC (Bld) [#/Vol] 5.01 10*6/uL Normal 4.2-5.4 [facility] Comment on above: Performed By: #### L 503.7505, L100.0100, L500.2500 #### [facility] [address] [place], [address] RDW SD 50.8 fl High 35.1-43.9 [facility] Comment on above: Performed By: #### L 503.7505, L100.0100, L500.2500 #### [facility] [address] [place], [address] WBC (Bld) [#/Vol] 7.5 10*3/uL Normal 4.4-11.0 [facility] Comment on above: Performed By: #### L 503.7505, L100.0100, L500.2500 #### [facility] [address], [address] Carbon dioxide, total [Moles /volume] in Central venous bloodOrdered By: Holli Gaona on 07-22-2024 CO2 [Moles/Vol] 20.1 mmol/L Low 21.0-32.0 [facility] Chloride assayOrdered By: Michaela Gaona on 07-22-2024 Chloride [Moles/Vol] 95 mmol/L Low 98-108 [facility] Eosinophil percentageOrdered By: Holli Gaona on 07-22-2024 Eosinophils/100 WBC (Bld) 0.3 % 0-5 [facility] Erythrocyte distribution wid th ratioOrdered By: Holli Gaona on 07-22-2024 Erythrocyte distribution width (RBC) [Ratio] 14.3 % 11.6-14.6 [facility] Erythrocyte distribution wid th standard deviationOrdered By: Holli Gaona on 07-22-2024 Erythrocyte distribution width (RBC) [Entitic vol] 50.8 fL High 35.1-43.9 [facility] Erythrocyte distribution width (RBC) [Ratio] 50.8 fl High 35.1-43.9 [facility] GFR/1.73 sq M.predicted mario g non-blacks MDRD (S/P/Bld) [Vol rate/Area]Ordered By: Holli Gaona on 07-22-2024 Estimated GFR (MDRD) Non-Af Amer 45 Low >60 [facility] Comment on above: mL/min/1.73m2 CKD-EP I Creatinine Equation (2020) Glomerular filtration rate ( GFR) estimation/1.73 sq m using serum, plasma, or whole bOrdered By: Holli Gaona on 07-22-2024 GFR/1.73 sq M.predicted among non-blacks MDRD (S/P/Bld) [Vol rate/Area] 45 mL/min/{1.73_m2} Low >60 [facility] Comment on above: mL/min/1.73m2 CKD-EP I Creatinine Equation (2020) Hematocrit Auto (Bld) [Volum e fraction]Ordered By: Holli Gaona on 07-22-2024 Hematocrit (Bld) [Volume fraction] 48.4 % High 37-47 [facility] Hemoglobin measurementOrdere d By: Holli Gaona on 07-22-2024 Hemoglobin (Bld) [Mass/Vol] 16.1 g/dL High 12.0-15.0 [facility] Immature granulocytes/100 WB C Auto (Bld)Ordered By: Holli Gaona on 07-22-2024 Immature granulocytes/100 WBC (Bld) 0.300 % 0.0-0.9 [facility] Comment on above: IG% - Immature Granu locytes (promyelocytes, myelocytes and metamyelocytes) > 1% indicates that a LEFT SHIFT is Present. L503.7505on 07-22-2024 Natriuretic peptide B (Bld) [Mass/Vol] 61010 pg/mL High <=1800 [facility] Comment on above: Result Comment: Hear t Failure Unlikely: < 300 pg/mL Heart Failure Likely < 50 Years: > 450 pg/mL 50-75 Years: > 900 pg/mL >75 Years: > 1800 pg/mL Performed By: #### L 500.4050, L503.6620 #### [facility] [address] [place], [address] Laboratory - Chemistry and C hemistry - challengeOrdered By: Holli Gaona on 07-22-2024 Natriuretic peptide B (Bld) [Mass/Vol] 89125 pg/mL High <1800 [facility] Comment on above: Heart Failure Unlike ly: < 300 pg/mLHeart Failure Likely< 50 Years: > 450 pg/mL50-75 Years: > 900 pg/mL>75 Years: > 1800 pg/mL Lymphocytes Auto (Unsp spec) [#/Vol]Ordered By: Holli Gaona on 07-22-2024 Lymphocytes (Bld) [#/Vol] 0.69 10*3/uL Low 0.83-4.51 [facility] Lymphocytes/100 WBC Auto (Un sp spec)Ordered By: Holli Gaona on 07-22-2024 Lymphocytes/100 WBC (Bld) 9.2 % Low 19-41 [facility] MCV (mean corpuscular volume ) determinationOrdered By: Holli Gaona on 07-22-2024 MCV (RBC) [Entitic vol] 96.6 fL 81-99 [facility] Mean corpuscular hemoglobin (MCH) determinationOrdered By: Holli Gaona on 07-22-2024 MCH (RBC) [Entitic mass] 32.1 pg High 27.0-32.0 [facility] Mean corpuscular hemoglobin concentration (MCHC) determinationOrdered By: Holli Gaona on 07-22-2024 MCHC (RBC) [Mass/Vol] 33.3 g/dL 32-[address] [facility] Mean platelet volume determi nationOrdered By: Holli Gaona on 07-22-2024 Platelet mean volume (Bld) [Entitic vol] 11.2 fL 6.2-12.0 [facility] Monocyte percentageOrdered B y: Holli Gaona on 07-22-2024 Monocytes/100 WBC (Bld) 8.1 % 0-10 [facility] Neutrophil percentageOrdered By: Holli Gaona on 07-22-2024 Neutrophils/100 WBC (Bld) 81.7 % High 47-70 [facility] Nucleated red blood cell per centageOrdered By: Holli Gaona on 07-22-2024 Nucleated RBC/100 WBC (Bld) [Ratio] 0 % 0-5 [facility] Platelet countOrdered By: Michaela Gaona on 07-22-2024 Platelets (Bld) [#/Vol] 122 10*3/uL Low 150-450 [facility] Potassium (Unsp spec) [Mass/ Vol]Ordered By: Holli Gaona on 07-22-2024 Potassium [Moles/Vol] 4.9 mmol/L 3.3-5.[address] [facility] Potassium measurement (mass/ volume)Ordered By: Holli Gaona on 07-22-2024 Potassium (Unsp spec) [Mass/Vol] 4.9 mmol/L 3.3-5.1 [facility] RBC Auto (Bld) [#/Vol]Ordere d By: Holli Gaona on 07-22-2024 RBC (Bld) [#/Vol] 5.01 10*6/uL 4.2-5.4 [facility] Serum creatinine measurement (mass/volume)Ordered By: Holli Gaona on 07-22-2024 Creatinine [Mass/Vol] 1.17 mg/dL 0.70-1.[address] [facility] Serum glucose measurement (m ass/volume)Ordered By: Holli Gaona on 07-22-2024 Glucose [Mass/Vol] 182 mg/dL High 70-99 [facility] Serum or plasma calcium criss urement (mass/volume)Ordered By: Holli Gaona on 07-22-2024 Calcium [Mass/Vol] 9.2 mg/dL 7.6-11.0 [facility] Serum or plasma urea nitroge n measurement (mass/volume)Ordered By: Holli Gaona on 07-22-2024 Urea nitrogen [Mass/Vol] 32 mg/dL High - [facility] Sodium levelOrdered By: Trell Gaona on 07-22-2024 Sodium [Moles/Vol] 130 mmol/L Low 133-145 [facility] White blood cell (WBC) count Ordered By: Holli Gaona on 07-22-2024 WBC (Bld) [#/Vol] 7.5 10*3/uL 4.4-11.0 [facility] Basic Metabolic Profile (BMP )on 07-21-2024 BUN Normal - [facility] Comment on above: Result Comment: UTOX 2 Performed By: #### L 500.4050, L503.6620 #### [facility] [address] [place], [place] [address], [address] BUN/CRE Normal 10-20 [facility] Comment on above: Result Comment: UTOX 2 Performed By: #### L 500.4050, L503.6620 #### [facility] [address] [place], [address] Calcium Normal 7.6-11.0 [facility] Comment on above: Result Comment: UTOX 2 Performed By: #### L 500.4050, L503.6620 #### [facility] [address] [place], [address] CL Normal 98-108 [facility] Comment on above: Result Comment: UTOX 2 Performed By: #### L 500.4050, L503.6620 #### [facility] [address] [place], [address] CO2 Normal 21.0-32.0 [facility] Comment on above: Result Comment: UTOX 2 Performed By: #### L 500.4050, L503.6620 #### [facility] [address] [place], [address] CREAT,SERUM Normal 0.70-1.20 [facility] Comment on above: Result Comment: UTOX 2 Performed By: #### L 500.4050, L503.6620 #### [facility] [address] [place], [address] eGFR Normal >60 [facility] Comment on above: Result Comment: UTOX 2 Performed By: #### L 500.4050, L503.6620 #### [facility] [address] [place], [address] GAP Normal 5-15 [facility] Comment on above: Result Comment: UTOX 2 Performed By: #### L 500.4050, L503.6620 #### [facility] [address] [place], [address] GLU Normal 70-99 [facility] Comment on above: Result Comment: UTOX 2 Performed By: #### L 500.4050, L503.6620 #### [facility] [address] [place], [address] Potassium Normal 3.3-5.1 [facility] Comment on above: Result Comment: UTOX 2 Performed By: #### L 500.4050, L503.6620 #### [facility] [address] [place], [address] Basic Metabolic Profile (BMP) Normal 133-145 [facility] Comment on above: Result Comment: UTOX 2 Performed By: #### L 500.4050, L503.6620 #### [facility] [address] [place], [address] CBC W/Diff, Automatedon 03-2 Absolute Neut Normal 2.0-7.7 [facility] Comment on above: Result Comment: UTOX 2 Performed By: #### L 500.4050, L503.6620 #### [facility] [address] [place], [address] HCT Normal 37-47 [facility] Comment on above: Result Comment: UTOX 2 Performed By: #### L 500.4050, L503.6620 #### [facility] [address] [place], [address] HGB Normal 12.0-15.0 [facility] Comment on above: Result Comment: UTOX 2 Performed By: #### L 500.4050, L503.6620 #### [facility] [address] [place], [address] MCH Normal 27.0-32.0 [facility] Comment on above: Result Comment: UTOX 2 Performed By: #### L 500.4050, L503.6620 #### [facility] [address] [place], [address] MCHC Normal 32-36 [facility] Comment on above: Result Comment: UTOX 2 Performed By: #### L 500.4050, L503.6620 #### [facility] [address] [place], [address] MCV Normal 81-99 [facility] Comment on above: Result Comment: UTOX 2 Performed By: #### L 500.4050, L503.6620 #### [facility] [address] [place], [address] NEUT% Normal 47-70 [facility] Comment on above: Result Comment: UTOX 2 Performed By: #### L 500.4050, L503.6620 #### [facility] [address] [place], [address] PLT Normal 150-450 [facility] Comment on above: Result Comment: UTOX 2 Performed By: #### L 500.4050, L503.6620 #### [facility] [address] [place], [address] RBC Normal 4.2-5.4 [facility] Comment on above: Result Comment: UTOX 2 Performed By: #### L 500.4050, L503.6620 #### [facility] [address] [place], [address] RDW CV Normal 11.6-14.6 [facility] Comment on above: Result Comment: UTOX 2 Performed By: #### L 500.4050, L503.6620 #### [facility] [address] [place], [address] RDW SD Normal 35.1-43.9 [facility] Comment on above: Result Comment: UTOX 2 Performed By: #### L 500.4050, L503.6620 #### [facility] [address] [place], [address] WBC Normal 4.4-11.0 [facility] Comment on above: Result Comment: UTOX 2 Performed By: #### L 500.4050, L503.6620 #### [facility] [address] [place], [place], [id number] Chest PA and Lateralon 07-21 Chest PA and Lateral [facility] [address] [place], [place] [address] Chest PA and Lateral MR#: [id number] Acct: [id number] Name: ROBERTO FERGUSON Rep #: [id number] : [id number] F 88 From: Jacob Graf MD PCP: Dr. Teagan Hall MD Status: REG CLI Study: Chest PA and Lateral Date of Exam: 07/21/24 Exam# [id number] Ordering Dr: Holli Gaona PA EXAM: XR Chest, 2 Views CLINICAL INDICATION: RECENT PNEUMONIA, HX PLEURAL EFFUSIONS, HX CHF TECHNIQUE: Frontal and lateral views of the chest. COMPARISON: XR Chest dated 07/04/2024 FINDINGS: LUNGS AND PLEURAL SPACES: Bibasilar atelectasis or pneumonia. Small bilateral pleural effusions, unchanged. HEART: Cardiomegaly with mild congestion. MEDIASTINUM: Unremarkable. Normal mediastinal contour. BONES/JOINTS: Unremarkable. No acute fracture. TUBES, LINES AND DEVICES: Left-sided cardiac pacemaker. RAD/Chest PA and Lateral IMPRESSION: 1. Bibasilar atelectasis or pneumonia. 2. Cardiomegaly with mild congestion. 3. Small bilateral pleural effusions, unchanged. Reading Location: [facility] CC: Dr. Teagan Hall MD; WISAM Sherman Sustainable Landscape Architect: Signed Normal [facility] Acetylcholine Receptoron ACHR AB < 0.03 Normal 0.00-0.24 [facility] Comment on above: Order Comment: DR. Mani HUFF GETS RESULTS FOR SAMARA AND DR. LONDONO GETS RESULTSFOR ALL OTHER LABSN Result Comment: Nega tive: 0.00 - 0.24 Borderline: 0.25 - 0.40 Positive: >0.40 Performed at: [facility] [address] [id number] Proof Coins Inspector: Luis Carlos Cerna MD, Phone: [phone] Performed By: #### L 500.4050, L100.0100 #### [facility] [address] [place], [id number] Absolute lymphocyte countOrd ered By: Sharad Londono on 07-04-2024 Lymphocytes Auto (Unsp spec) [#/Vol] 0.88 10*3/uL 0.83-4.51 [facility] Absolute neutrophil countOrd ered By: Sharad Londono on 07-04-2024 Neutrophils (Bld) [#/Vol] 3.7 10*3/uL 2.0-7.7 [facility] Acetylcholine receptorOrdere d By: Sharad Londono on 07-04-2024 Acetylcholine Receptor Antibody < 0.03 nmol/L 0.00-0.24 [facility] Comment on above: Negative: 0.00 - 0.2 4 Borderline: 0.25 - 0.40 Positive: >0.40Performed at: [facility] [address] [id number] Director: Luis Carlos Cerna MD, Phone: [phone] Anion gap in Serum or Plasma Ordered By: Sharad Londono on 07-04-2024 Anion gap [Moles/Vol] 15 mmol/L 5-[address] [facility] Automated lymphocyte count a s percentage of total leukocytesOrdered By: Sharad Londono on 07-04-2024 Lymphocytes/100 WBC Auto (Unsp spec) 16.3 % Low 19-41 [facility] BUN/creatinine ratioOrdered By: Sharad oLndono on 07-04-2024 Urea nitrogen/Creatinine [Mass ratio] 28.7 mg/mg High 10- [facility] Basic Metabolic Profile (BMP )on 07-04-2024 BUN/CRE 28.7 RATIO High - [facility] Comment on above: Performed By: #### L 500.4050, L100.0100 #### [facility] [address] [place], [address] Calcium [Mass/Vol] 9.2 mg/dL Normal 7.6-11.0 [facility] Comment on above: Performed By: #### L 500.4050, L100.0100 #### [facility] [address] [place], [address] Chloride [Moles/Vol] 101 mmol/L Normal 98-108 [facility] Comment on above: Performed By: #### L 500.4050, L100.0100 #### [facility] [address] [place], [address] CO2 [Moles/Vol] 20.9 mmol/L Low 21.0-32.0 [facility] Comment on above: Performed By: #### L 500.4050, L100.0100 #### [facility] [address] [place], [address] Creatinine [Mass/Vol] 1.17 mg/dL Normal 0.70-1.[address] [facility] Comment on above: Performed By: #### L 500.4050, L100.0100 #### [facility] [address] [place], [address] GAP 15 Normal 5-15 [facility] Comment on above: Performed By: #### L 500.4050, L100.0100 #### [facility] [address] [place], [address] GFR/1.73 sq M.predicted among non-blacks MDRD (S/P/Bld) [Vol rate/Area] 45 mL/min/{1.73_m2} Low >60 [facility] Comment on above: Result Comment: mL/m in/1.73m2 CKD-EPI Creatinine Equation (2020) Performed By: #### L 500.4050, L100.0100 #### [facility] [address] [place], [address] Glucose [Mass/Vol] 90 mg/dL Normal 70-99 [facility] Comment on above: Performed By: #### L 500.4050, L100.0100 #### [facility] [address] [place], [address] Potassium [Moles/Vol] 4.1 mmol/L Normal 3.3-5.[address] [facility] Comment on above: Performed By: #### L 500.4050, L100.0100 #### [facility] [address] [place], [address] Sodium [Moles/Vol] 137 mmol/L Normal 133-145 [facility] Comment on above: Performed By: #### L 500.4050, L100.0100 #### [facility] [address] [place], [address] Urea nitrogen [Mass/Vol] 34 mg/dL High 4-19 [facility] Comment on above: Performed By: #### L 500.4050, L100.0100 #### [facility] [address] [place], [address] Basophil percentageOrdered B y: Sharad Bry on 07-04-2024 Basophils/100 WBC (Bld) 0.7 % 0-1 [facility] CBC W/Diff, Automatedon Absolute Lymph 0.88 X10 3/uL Normal 0.83-4.51 [facility] Comment on above: Performed By: #### L 500.4050, L100.0100 #### [facility] [facility] [address] [place], [address] Absolute Neut 3.7 X10 3/uL Normal 2.0-7.7 [facility] Comment on above: Performed By: #### L 500.4050, L100.0100 #### [facility] [address] [place], [address] Basophils/100 WBC (Bld) 0.7 % Normal 0-1 [facility] Comment on above: Performed By: #### L 500.4050, L100.0100 #### [facility] [address] [place], [address] Eosinophils/100 WBC (Bld) 1.5 % Normal 0-5 [facility] Comment on above: Performed By: #### L 500.4050, L100.0100 #### [facility] [address] [place], [address] Erythrocyte distribution width (RBC) [Ratio] 14.6 % Normal 11.6-14.6 [facility] Comment on above: Performed By: #### L 500.4050, L100.0100 #### [facility] [address] [place], [address] Hematocrit (Bld) [Volume fraction] 47.4 % High 37-47 [facility] Comment on above: Performed By: #### L 500.4050, L100.0100 #### [facility] [address] [place], [address] Hemoglobin (Bld) [Mass/Vol] 15.5 g/dL High 12.0-15.0 [facility] Comment on above: Performed By: #### L 500.4050, L100.0100 #### [facility] [address] [place], [address] IG% 0.200 Normal 0.0-0.9 [facility] Comment on above: Result Comment: IG% - Immature Granulocytes (promyelocytes, myelocytes and metamyelocytes) > 1% indicates that a LEFT SHIFT is Present. Performed By: #### L 500.4050, L100.0100 #### [facility] [address] [place], [address] Lymphocytes/100 WBC (Bld) 16.3 % Low 19-41 [facility] Comment on above: Performed By: #### L 500.4050, L100.0100 #### [facility] [address] [place], [address] MCH (RBC) [Entitic mass] 32.1 pg High 27.0-32.0 [facility] Comment on above: Performed By: #### L 500.4050, L100.0100 #### [facility] [address] [place], [address] MCHC (RBC) [Mass/Vol] 32.7 g/dL Normal 32-[address] [facility] Comment on above: Performed By: #### L 500.4050, L100.0100 #### [facility] [address] [place], [address] MCV (RBC) [Entitic vol] 98.1 fL Normal 81-99 [facility] Comment on above: Performed By: #### L 500.4050, L100.0100 #### [facility] [address] [place], [address] Monocytes/100 WBC (Bld) 13.0 % High 0-10 [facility] Comment on above: Performed By: #### L 500.4050, L100.0100 #### [facility] [address] [place], [address] Neutrophils/100 WBC (Bld) 68.3 % Normal 47-70 [facility] Comment on above: Performed By: #### L 500.4050, L100.0100 #### [facility] [address] [place], [address] Nucleated RBC (Bld) [#/Vol] 0 10*3/uL Normal 0-5 [facility] Comment on above: Performed By: #### L 500.4050, L100.0100 #### [facility] [address] [place], [address] Platelet mean volume (Bld) [Entitic vol] 11.2 fL Normal 6.2-12.0 [facility] Comment on above: Performed By: #### L 500.4050, L100.0100 #### [facility] [address] [place], [address] Platelets (Bld) [#/Vol] 155 10*3/uL Normal 150-450 [facility] Comment on above: Performed By: #### L 500.4050, L100.0100 #### [facility] [address] [place], [address] RBC (Bld) [#/Vol] 4.83 10*6/uL Normal 4.2-5.4 [facility] Comment on above: Performed By: #### L 500.4050, L100.0100 #### [facility] [address] [place], [address] RDW SD 52.8 fl High 35.1-43.9 [facility] Comment on above: Performed By: #### L 500.4050, L100.0100 #### [facility] [address] [place], [address] WBC (Bld) [#/Vol] 5.4 10*3/uL Normal 4.4-11.0 [facility] Comment on above: Performed By: #### L 500.4050, L100.0100 #### [facility] [address] [place], [address] Carbon dioxide, total [Moles /volume] in Central venous bloodOrdered By: Sharad Londono on 07-04-2024 CO2 [Moles/Vol] 20.9 mmol/L Low 21.0-32.0 [facility] Chest PA and Lateralon 07-04 Chest PA and Lateral [facility] Imaging Services [address] [place] [address] Chest PA and Lateral MR#: [id number] Acct: [id number] Name: ROBERTO FERGUSON Rep #: [id number] : 1935 F 88 From: Jacob Graf MD PCP: Dr. Teagan Hall MD Status: REG CLI Study: Chest PA and Lateral Date of Exam: 07/04/24 Exam# [id number] Ordering Dr: Sharad Londono NATIONAL BUSINESS DIRECTOR NATIONAL BUSINESS DIRECTOR-C EXAM: XR Chest, 2 Views CLINICAL INDICATION: TECHNIQUE: Frontal and lateral views of the chest. COMPARISON: No relevant prior studies available. FINDINGS: LUNGS AND PLEURAL SPACES: Bibasilar atelectasis or pneumonia. HEART: Cardiomegaly with mild congestion. MEDIASTINUM: Unremarkable. Normal mediastinal contour. BONES/JOINTS: Unremarkable. No acute fracture. TUBES, LINES AND DEVICES: Left-sided cardiac pacemaker. RAD/Chest PA and Lateral IMPRESSION: 1. Bibasilar atelectasis or pneumonia. 2. Cardiomegaly with mild congestion. Reading Location: [facility] CC: NATIONAL BUSINESS DIRECTOR-C Sharad Londono; Dr. Teagan Hall MD Sustainable Landscape Architect: Signed Normal [facility] Chloride assayOrdered By: Hailee Londono on 07-04-2024 Chloride [Moles/Vol] 101 mmol/L 98-108 [facility] Eosinophil percentageOrdered By: Sharad Londono on 07-04-2024 Eosinophils/100 WBC (Bld) 1.5 % 0-5 [facility] Erythrocyte distribution wid th ratioOrdered By: Sharad Londono on 07-04-2024 Erythrocyte distribution width (RBC) [Ratio] 14.6 % 11.6-14.6 [facility] Erythrocyte distribution wid th standard deviationOrdered By: Sharad Londono on 07-04-2024 Erythrocyte distribution width (RBC) [Entitic vol] 52.8 fL High 35.1-43.9 [facility] Erythrocyte distribution width (RBC) [Ratio] 52.8 fl High 35.1-43.9 [facility] GFR/1.73 sq M.predicted mario g non-blacks MDRD (S/P/Bld) [Vol rate/Area]Ordered By: Sharad Londono on 07-04-2024 Estimated GFR (MDRD) Non-Af Amer 45 Low >60 [facility] Comment on above: mL/min/1.73m2 CKD-EP I Creatinine Equation (2020) Glomerular filtration rate ( GFR) estimation/1.73 sq m using serum, plasma, or whole bOrdered By: Sharad Londono on 07-04-2024 GFR/1.73 sq M.predicted among non-blacks MDRD (S/P/Bld) [Vol rate/Area] 45 mL/min/{1.73_m2} Low >60 [facility] Comment on above: mL/min/1.73m2 CKD-EP I Creatinine Equation (2020) Hematocrit Auto (Bld) [Volum e fraction]Ordered By: Sharad Londono on 07-04-2024 Hematocrit (Bld) [Volume fraction] 47.4 % High 37-47 [facility] Hemoglobin measurementOrdere d By: Sharad Londono on 07-04-2024 Hemoglobin (Bld) [Mass/Vol] 15.5 g/dL High 12.0-15.0 [facility] Immature granulocytes/100 WB C Auto (Bld)Ordered By: Sharad Londono on 07-04-2024 Immature granulocytes/100 WBC (Bld) 0.200 % 0.0-0.9 [facility] Comment on above: IG% - Immature Granu locytes (promyelocytes, myelocytes and metamyelocytes) > 1% indicates that a LEFT SHIFT is Present. L503.7505on 07-04-2024 Natriuretic peptide B (Bld) [Mass/Vol] 12467 pg/mL High <=1800 [facility] Comment on above: Result Comment: Hear t Failure Unlikely: < 300 pg/mL Heart Failure Likely < 50 Years: > 450 pg/mL 50-75 Years: > 900 pg/mL >75 Years: > 1800 pg/mL Performed By: #### L 500.4050, L100.0100 #### [facility] [address] [place], [place], [id number] Laboratory - Chemistry and C hemistry - challengeOrdered By: Sharad Londono on 07-04-2024 Natriuretic peptide B (Bld) [Mass/Vol] 24189 pg/mL High <1800 [facility] Comment on above: Heart Failure Unlike ly: < 300 pg/mLHeart Failure Likely< 50 Years: > 450 pg/mL50-75 Years: > 900 pg/mL>75 Years: > 1800 pg/mL Lymphocytes Auto (Unsp spec) [#/Vol]Ordered By: Sharad oLndono on 07-04-2024 Lymphocytes (Bld) [#/Vol] 0.88 10*3/uL 0.83-4.51 [facility] Lymphocytes/100 WBC Auto (Un sp spec)Ordered By: Sharad Londono on 07-04-2024 Lymphocytes/100 WBC (Bld) 16.3 % Low 19-41 [facility] MCV (mean corpuscular volume ) determinationOrdered By: Sharad Londono on 07-04-2024 MCV (RBC) [Entitic vol] 98.1 fL 81-99 [facility] Mean corpuscular hemoglobin (MCH) determinationOrdered By: Sharad Londono on 07-04-2024 MCH (RBC) [Entitic mass] 32.1 pg High 27.0-32.0 [facility] Mean corpuscular hemoglobin concentration (MCHC) determinationOrdered By: Sharad Londono on 07-04-2024 MCHC (RBC) [Mass/Vol] 32.7 g/dL 32-[address] [facility] Mean platelet volume determi nationOrdered By: Sharad Londono on 07-04-2024 Platelet mean volume (Bld) [Entitic vol] 11.2 fL 6.2-12.0 [facility] Monocyte percentageOrdered B y: Sharad Londono on 07-04-2024 Monocytes/100 WBC (Bld) 13.0 % High 0-10 [facility] Neutrophil percentageOrdered By: Sharad Londono on 07-04-2024 Neutrophils/100 WBC (Bld) 68.3 % 47-70 [facility] Nucleated red blood cell per centageOrdered By: Sharad Londono on 07-04-2024 Nucleated RBC/100 WBC (Bld) [Ratio] 0 % 0-5 [facility] Platelet countOrdered By: Hailee Londono on 07-04-2024 Platelets (Bld) [#/Vol] 155 10*3/uL 150-450 [facility] Potassium (Unsp spec) [Mass/ Vol]Ordered By: Sharad Londono on 07-04-2024 Potassium [Moles/Vol] 4.1 mmol/L 3.3-5.[address] [facility] Potassium measurement (mass/ volume)Ordered By: Sharad Londono on 07-04-2024 Potassium (Unsp spec) [Mass/Vol] 4.1 mmol/L 3.3-5.1 [facility] RBC Auto (Bld) [#/Vol]Ordere d By: Sharad Londono on 07-04-2024 RBC (Bld) [#/Vol] 4.83 10*6/uL 4.2-5.4 [facility] Serum creatinine measurement (mass/volume)Ordered By: Sharad Londono on 07-04-2024 Creatinine [Mass/Vol] 1.17 mg/dL 0.70-1.[address] [facility] Serum glucose measurement (m ass/volume)Ordered By: Sharad Londono on 07-04-2024 Glucose [Mass/Vol] 90 mg/dL 70-99 [facility] Serum or plasma calcium criss urement (mass/volume)Ordered By: Sharad Londono on 07-04-2024 Calcium [Mass/Vol] 9.2 mg/dL 7.6-11.0 [facility] Serum or plasma urea nitroge n measurement (mass/volume)Ordered By: Sharad Londono on 07-04-2024 Urea nitrogen [Mass/Vol] 34 mg/dL High 4-19 [facility] Sodium levelOrdered By: Sharad Londono on 07-04-2024 Sodium [Moles/Vol] 137 mmol/L 133-145 [facility] White blood cell (WBC) count Ordered By: Sharad Londono on 07-04-2024 WBC (Bld) [#/Vol] 5.4 10*3/uL 4.4-11.0 [facility] Brain W/WO Contraston 2024 Brain W/WO Contrast [facility] Imaging Services [address] [place], [place] [id number] Brain W/WO Contrast MR#: [id number] Acct: [id number] Name: ROBERTO FERGUSON Rep #: [id number] : 1935 F 88 From: Ajith Akins PCP: Dr. Teagan Hall MD Status: REG CLI Study: Brain W/WO Contrast Date of Exam: 06/14/24 Exam# [id number] Ordering Dr: Tripp Childress MD PROCEDURE: BRAIN W/WO CONTRAST also with attention to the orbits. REASON FOR EXAM: Diplopia and disequilibrium. TECHNIQUE: Multiplanar, multisequence MRI of the brain without and with intravenous gadolinium-based contrast. CONTRAST: IV 15 ml Dotarem. COMPARISON: Head CT of 01/03/2023. FINDINGS: Diffusion-weighted images demonstrate no area of restricted diffusion. Moderate generalized cerebral and cerebellar atrophy is seen, with symmetric ventricular enlargement consistent with the degree of atrophy. No extra-axial fluid collection is seen. No orbital pathology is noted. Internal auditory canals appear symmetric and within the normal range. No abnormal mass or area of abnormal postcontrast enhancement is seen within either internal auditory canal. Mild mucosal thickening is seen of the bilateral ethmoid air cells. No air-fluid level is noted. The remaining paranasal sinuses appear clear, as do the mastoid air cells. Following intravenous administration of contrast, no area of abnormal enhancement is seen. MRI/Brain W/WO Contrast IMPRESSION: 1. Moderate generalized cerebral and cerebellar atrophy. 2. No acute intracranial process is seen. 3. No orbital pathology is noted. 4. Mild chronic appearing paranasal sinus disease. Reading Location: [address] CC: Dr. Teagan Hall MD; Dr. Tripp Childress MD Sustainable Landscape Architect: Signed Normal [facility] L3410.9998on 06-13-2024 [facility] Normal . [facility] Comment on above: Order Comment: Test( s) 242909-BJrO Blocking Abs, SerumThis test was developed and its performance characteristicsdetermined by [facility]. It has not been cleared orapproved by the Food and Drug Administration.Test(s) 244502-XWqA-ayokbnjjzb Abwas developed and its performance characteristicsdetermined by [facility]. It has not been cleared or approvedby the Food and Drug Administration.[id number] AB PROFILE Performed By: #### L 500.4050, L100.0100 #### [facility] [place], [address] Absolute lymphocyte countOrd ered By: Leena Serra on 06-02-2024 Lymphocytes Auto (Unsp spec) [#/Vol] 0.71 10*3/uL Low 0.83-4.51 [facility] Absolute neutrophil countOrd ered By: Leena Serra on 06-02-2024 Neutrophils (Bld) [#/Vol] 3.4 10*3/uL 2.0-7.7 [facility] Albumin to globulin ratioOrd ered By: Leena Serra on 06-02-2024 Albumin/Globulin [Mass ratio] 1.1 {ratio} 0.9-2.4 [facility] Automated lymphocyte count a s percentage of total leukocytesOrdered By: Leena Serra on 06-02-2024 Lymphocytes/100 WBC Auto (Unsp spec) 15.2 % Low 19-41 [facility] Basophil percentageOrdered B y: Leena Serra on 06-02-2024 Basophils/100 WBC (Bld) 0.6 % 0-1 [facility] Bilirubin, totalOrdered By: Leena Serra on 06-02-2024 Bilirubin [Mass/Vol] 0.70 mg/dL 0.20-1.00 [facility] Comment on above: For patients on eltr ombopag therapy, use of Dimension [place] TBIL is not recommended. Blood urea nitrogen (BUN)/cr eatinine ratioOrdered By: Leena Serra on 06-02-2024 Urea nitrogen/Creatinine [Mass ratio] 28.3 mg/mg High 10-20 [facility] CBC W/Diff, Automatedon 05-05 Absolute Lymph 0.71 X10 3/uL Low 0.83-4.51 [facility] Comment on above: Order Comment: LURDES Karla SERRA ORDERED CMP CBCD Performed By: #### L 500.4050, L100.0100 #### [facility] [address] [place], [address] Absolute Neut 3.4 X10 3/uL Normal 2.0-7.7 [facility] Comment on above: Order Comment: [facility] O RDERED ACETYDR. VELLANKI ORDERED CMP CBCD Performed By: #### L 500.4050, L100.0100 #### [facility] [address] [place], [address] Basophils/100 WBC (Bld) 0.6 % Normal 0-1 [facility] Comment on above: Order Comment: [facility] O RDERED ACETYDR. VELLANKI ORDERED CMP CBCD Performed By: #### L 500.4050, L100.0100 #### [facility] [address] [place], [address] Eosinophils/100 WBC (Bld) 0.9 % Normal 0-5 [facility] Comment on above: Order Comment: [facility] O RDERED ACETYDR. VELLANKI ORDERED CMP CBCD Performed By: #### L 500.4050, L100.0100 #### [facility] [address] [place], [address] Erythrocyte distribution width (RBC) [Ratio] 15.5 % High 11.6-14.6 [facility] Comment on above: Order Comment: [facility] O RDERED ACETYDR. VELLANKI ORDERED CMP CBCD Performed By: #### L 500.4050, L100.0100 #### [facility] [address] [place], [address] Hematocrit (Bld) [Volume fraction] 45.2 % Normal 37-47 [facility] Comment on above: Order Comment: [facility] O RDERED ACETYDR. VELLANKI ORDERED CMP CBCD Performed By: #### L 500.4050, L100.0100 #### [facility] [address] [place], [address] Hemoglobin (Bld) [Mass/Vol] 14.9 g/dL Normal 12.0-15.0 [facility] Comment on above: Order Comment: [facility] O RDERED ACETYDR. VELLANKI ORDERED CMP CBCD Performed By: #### L 500.4050, L100.0100 #### [facility] [address] [place], [address] IG% 0.400 Normal 0.0-0.9 [facility] Comment on above: Order Comment: [facility] O RDERED ACETYDR. VELLANKI ORDERED CMP CBCD Result Comment: IG% - Immature Granulocytes (promyelocytes, myelocytes and metamyelocytes) > 1% indicates that a LEFT SHIFT is Present. Performed By: #### L 500.4050, L100.0100 #### [facility] [address] [place], [address] Lymphocytes/100 WBC (Bld) 15.2 % Low 19-41 [facility] Comment on above: Order Comment: [facility] O RDERED ACETYDR. VELLANKI ORDERED CMP CBCD Performed By: #### L 500.4050, L100.0100 #### [facility] [address] [place], [address] MCH (RBC) [Entitic mass] 32.0 pg Normal 27.0-32.0 [facility] Comment on above: Order Comment: [facility] RDERED ACETYDR. VELLANKI ORDERED CMP CBCD Performed By: #### L 500.4050, L100.0100 #### [facility] [address] [place], [address] MCHC (RBC) [Mass/Vol] 33.0 g/dL Normal 32-[address] [facility] Comment on above: Order Comment: [facility] O RDERED ACETYDR. VELLANKI ORDERED CMP CBCD Performed By: #### L 500.4050, L100.0100 #### [facility] [address] [place], [address] MCV (RBC) [Entitic vol] 97.0 fL Normal 81-99 [facility] Comment on above: Order Comment: [facility] O RDERED ACETYDR. VELLANKI ORDERED CMP CBCD Performed By: #### L 500.4050, L100.0100 #### [facility] [address] [place], [address] Monocytes/100 WBC (Bld) 10.5 % High 0-10 [facility] Comment on above: Order Comment: [facility] O RDERED ACETYDR. VELLANKI ORDERED CMP CBCD Performed By: #### L 500.4050, L100.0100 #### [facility] [address] [place], [address] Neutrophils/100 WBC (Bld) 72.4 % High 47-70 [facility] Comment on above: Order Comment: [facility] O RDERED ACETYDR. VELLANKI ORDERED CMP CBCD Performed By: #### L 500.4050, L100.0100 #### [facility] [address] [place], [address] Nucleated RBC (Bld) [#/Vol] 0 10*3/uL Normal 0-5 [facility] Comment on above: Order Comment: [facility] O RDERED ACETYDR. VELLANKI ORDERED CMP CBCD Performed By: #### L 500.4050, L100.0100 #### [facility] [address] [place], [address] Platelet mean volume (Bld) [Entitic vol] 11.2 fL Normal 6.2-12.0 [facility] Comment on above: Order Comment: [facility] O RDERED ACETYDR. VELLANKI ORDERED CMP CBCD Performed By: #### L 500.4050, L100.0100 #### [facility] [address] [place], [address] Platelets (Bld) [#/Vol] 163 10*3/uL Normal 150-450 [facility] Comment on above: Order Comment: [facility] O RDERED ACETYDR. VELLANKI ORDERED CMP CBCD Performed By: #### L 500.4050, L100.0100 #### [facility] [address] [place], [address] RBC (Bld) [#/Vol] 4.66 10*6/uL Normal 4.2-5.4 [facility] Comment on above: Order Comment: [facility] O TOMI ACETYDR. SERRA ORDERED CMP CBCD Performed By: #### L 500.4050, L100.0100 #### [facility] [address] [place], [address] RDW SD 54.7 fl High 35.1-43.9 [facility] Comment on above: Order Comment: [facility] TOMI ACETYDR. SERRA ORDERED CMP CBCD Performed By: #### L 500.4050, L100.0100 #### [facility] [address] [place], [address] WBC (Bld) [#/Vol] 4.7 10*3/uL Normal 4.4-11.0 [facility] Comment on above: Order Comment: [facility] TOMI ACETYDR. SERRA ORDERED CMP CBCD Performed By: #### L 500.4050, L100.0100 #### [facility] [address] [place], [address] Carbon dioxide measurementOr dered By: Leena Serra on 06-02-2024 CO2 [Moles/Vol] 22.0 mmol/L 21.0-32.0 [facility] Chloride measurementOrdered By: Leena Serra on 06-02-2024 Chloride [Moles/Vol] 106 mmol/L 98-107 [facility] Comprehensive Metabolic Prof ilon 06-02-2024 Albumin [Mass/Vol] 3.5 g/dL Normal 3.2-5.0 [facility] Comment on above: Order Comment: [facility] TOMI ACETYDRNena SERRA ORDERED CMP CBCD Performed By: #### L 500.4050, L100.0100 #### [facility] [address] [place], [address] Albumin/Globulin [Mass ratio] 1.1 {ratio} Normal 0.9-2.4 [facility] Comment on above: Order Comment: [facility] O HILLERED ACETYDR. VELLANKI ORDERED CMP CBCD Performed By: #### L 500.4050, L100.0100 #### [facility] [address] [place], [address] ALK P 66 U/L Normal 45-117 [facility] Comment on above: Order Comment: [facility] RDERED ACETYDR. VELLANKI ORDERED CMP CBCD Performed By: #### L 500.4050, L100.0100 #### [facility] [address] [place], [address] ALT [Catalytic activity/Vol] 26 U/L Normal 13-56 [facility] Comment on above: Order Comment: [facility] RDERED ACETYDR. VELLANKI ORDERED CMP CBCD Performed By: #### L 500.4050, L100.0100 #### [facility] [address] [place], [address] AST [Catalytic activity/Vol] 17 U/L Normal 15-37 [facility] Comment on above: Order Comment: [facility] RDERED ACETYDR. VELLANKI ORDERED CMP CBCD Performed By: #### L 500.4050, L100.0100 #### [facility] [address] [place], [address] Bilirubin [Mass/Vol] 0.70 mg/dL Normal 0.20-1.00 [facility] Comment on above: Order Comment: [facility] RDERED ACETYDR. VELLANKI ORDERED CMP CBCD Result Comment: For patients on eltrombopag therapy, use of Dimension [place] TBIL is not recommended. Performed By: #### L 500.4050, L100.0100 #### [facility] [address] [place], [address] BUN/CRE 28.3 RATIO High 10-20 [facility] Comment on above: Order Comment: [facility] O RDERED ACETYDR. VELLANKI ORDERED CMP CBCD Performed By: #### L 500.4050, L100.0100 #### [facility] [address] [place], [address] CA,Total 9.6 mg/dL Normal 8.5-10.1 [facility] Comment on above: Order Comment: [facility] RDERED ACETYDR. VELLANKI ORDERED CMP CBCD Performed By: #### L 500.4050, L100.0100 #### [facility] [address] [place], [address] Chloride [Moles/Vol] 106 mmol/L Normal 98-107 [facility] Comment on above: Order Comment: [facility] RDERED ACETYDR. VELLANKI ORDERED CMP CBCD Performed By: #### L 500.4050, L100.0100 #### [facility] [address] [place], [address] CO2 [Moles/Vol] 22.0 mmol/L Normal 21.0-32.0 [facility] Comment on above: Order Comment: [facility] RDERED ACETYDR. VELLANKI ORDERED CMP CBCD Performed By: #### L 500.4050, L100.0100 #### [facility] [address] [place], [address] Creatinine [Mass/Vol] 1.20 mg/dL High 0.55-1.[address] [facility] Comment on above: Order Comment: [facility] RDERED ACETYDR. VELLANKI ORDERED CMP CBCD Result Comment: The validity of the calculated GFR GFRAA in patients over 70 years has not been determined. Clinical correlation is essential. Performed By: #### L 500.4050, L100.0100 #### [facility] [address] [place], [address] EST GFR - AA 55 mL/min Low >60 [facility] Comment on above: Order Comment: [facility] RDERED ACETYDR. VELLANKI ORDERED CMP CBCD Result Comment: Afri can Armenian GFR Calc Performed By: #### L 500.4050, L100.0100 #### [facility] [address] [place], [address] GAP 9 Normal 5-15 [facility] Comment on above: Order Comment: [facility] O RDERED ACETYDR. VELLANKI ORDERED CMP CBCD Performed By: #### L 500.4050, L100.0100 #### [facility] [address] [place], [address] GFR/1.73 sq M.predicted among non-blacks MDRD (S/P/Bld) [Vol rate/Area] 45 mL/min/{1.73_m2} Low >60 [facility] Comment on above: Order Comment: [facility] O RDERED ACETYDR. VELLANKI ORDERED CMP CBCD Result Comment: Non- GFR Calc Performed By: #### L 500.4050, L100.0100 #### [facility] [address] [place], [address] Globulin (S) [Mass/Vol] 3.2 g/dL Normal 2.2-4.2 [facility] Comment on above: Order Comment: [facility] O HILLERED ACETYDR. VELLANKI ORDERED CMP CBCD Performed By: #### L 500.4050, L100.0100 #### [facility] [address] [place], [address] Glucose [Mass/Vol] 114 mg/dL High 74-106 [facility] Comment on above: Order Comment: [facility] O RDERED ACETYDR. VELLANKI ORDERED CMP CBCD Result Comment: Fast ing Glucose result from 100 to 125 mg/dL suggests IMPAIRED HOMEOSTASIS per A.D.A. criteria. Performed By: #### L 500.4050, L100.0100 #### [facility] [address] [place], [address] Potassium [Moles/Vol] 4.3 mmol/L Normal 3.5-5.[address] [facility] Comment on above: Order Comment: [facility] O RDERED ACETYDR. BIBIANALANANDREW ORDERED CMP CBCD Performed By: #### L 500.4050, L100.0100 #### [facility] [address] [place], [address] Sodium [Moles/Vol] 137 mmol/L Normal 136-145 [facility] Comment on above: Order Comment: [facility] RDERED ACETYDR. VELLANANDREW ORDERED CMP CBCD Performed By: #### L 500.4050, L100.0100 #### [facility] [address] [place], [address] T PROT 6.7 g/dL Normal 6.4-8.2 [facility] Comment on above: Order Comment: [facility] RDERED ACETYDR. VELLANANDREW ORDERED CMP CBCD Performed By: #### L 500.4050, L100.0100 #### [facility] [address] [place], [address] Urea nitrogen [Mass/Vol] 34 mg/dL High 7-18 [facility] Comment on above: Order Comment: [facility] RDERED ACETYDR. BIBIANALANANDREW ORDERED CMP CBCD Performed By: #### L 500.4050, L100.0100 #### [facility] [address] [place], [address] Eosinophil percentageOrdered By: Leena Serra on 06-02-2024 Eosinophils/100 WBC (Bld) 0.9 % 0-5 [facility] Erythrocyte distribution wid th ratioOrdered By: Leena Serra on 06-02-2024 Erythrocyte distribution width (RBC) [Ratio] 15.5 % High 11.6-14.6 [facility] Erythrocyte distribution wid th standard deviationOrdered By: Leena Serra on 06-02-2024 Erythrocyte distribution width (RBC) [Entitic vol] 54.7 fL High 35.1-43.9 [facility] Erythrocyte distribution width (RBC) [Ratio] 54.7 fl High 35.1-43.9 [facility] Estimated glomerular filtrat ion rate (GFR) AmericanOrdered By: Leena Serra on 06-02-2024 Estimated GFR (MDRD) Amer 55 mL/min Low >60 [facility] Comment on above: GFR Calc Glomerular filtration rate ( GFR) estimationOrdered By: Leena Serar on 06-02-2024 Estimated GFR (MDRD) Non-Af Amer 45 mL/min Low >60 [facility] Comment on above: Non- GFR Calc GFR/1.73 sq M.predicted among non-blacks MDRD (S/P/Bld) [Vol rate/Area] 45 mL/min/{1.73_m2} Low >60 [facility] Comment on above: Non- GFR Calc Glucose measurementOrdered B y: Leena Serra on 06-02-2024 Glucose [Mass/Vol] 114 mg/dL High 74-106 [facility] Comment on above: Fasting Glucose resu lt from 100 to 125 mg/dL suggests IMPAIRED HOMEOSTASIS per A.D.A. criteria. Hematocrit Auto (Bld) [Volum e fraction]Ordered By: Leena Serra on 06-02-2024 Hematocrit (Bld) [Volume fraction] 45.2 % 37-47 [facility] Hemoglobin measurementOrdere d By: Leena Serra on 06-02-2024 Hemoglobin (Bld) [Mass/Vol] 14.9 g/dL 12.0-15.0 [facility] Immature granulocytes/100 WB C Auto (Bld)Ordered By: Leena Serra on 06-02-2024 Immature granulocytes/100 WBC (Bld) 0.400 % 0.0-0.9 [facility] Comment on above: IG% - Immature Granu locytes (promyelocytes, myelocytes and metamyelocytes) > 1% indicates that a LEFT SHIFT is Present. Laboratory - Chemistry and C hemistry - challengeOrdered By: Leena Serra on 06-02-2024 AST [Catalytic activity/Vol] 17 U/L 15-37 [facility] Lymphocytes Auto (Unsp spec) [#/Vol]Ordered By: Leena Serra on 06-02-2024 Lymphocytes (Bld) [#/Vol] 0.71 10*3/uL Low 0.83-4.51 [facility] Lymphocytes/100 WBC Auto (Un sp spec)Ordered By: Leena Serra on 06-02-2024 Lymphocytes/100 WBC (Bld) 15.2 % Low 19-41 [facility] MCV (mean corpuscular volume ) determinationOrdered By: Leena Serra on 06-02-2024 MCV (RBC) [Entitic vol] 97.0 fL 81-99 [facility] Mean corpuscular hemoglobin (MCH) determinationOrdered By: Leena Serra on 06-02-2024 MCH (RBC) [Entitic mass] 32.0 pg 27.0-32.0 [facility] Mean corpuscular hemoglobin concentration (MCHC) determinationOrdered By: Leena Serra on 06-02-2024 MCHC (RBC) [Mass/Vol] 33.0 g/dL 32-[address] [facility] Mean platelet volume determi nationOrdered By: Leena Serra on 06-02-2024 Platelet mean volume (Bld) [Entitic vol] 11.2 fL 6.2-12.0 [facility] Monocyte percentageOrdered B y: Leena Serra on 06-02-2024 Monocytes/100 WBC (Bld) 10.5 % High 0-10 [facility] Neutrophil percentageOrdered By: Leena Serra on 06-02-2024 Neutrophils/100 WBC (Bld) 72.4 % High 47-70 [facility] Nucleated red blood cell per centageOrdered By: Leena Serra on 06-02-2024 Nucleated RBC/100 WBC (Bld) [Ratio] 0 % 0-5 [facility] Platelet countOrdered By: Wisam Serra on 06-02-2024 Platelets (Bld) [#/Vol] 163 10*3/uL 150-450 [facility] Potassium measurementOrdered By: Leena Serra on 06-02-2024 Potassium [Moles/Vol] 4.3 mmol/L 3.5-5.[address] [facility] RBC Auto (Bld) [#/Vol]Ordere d By: Leena Serra on 06-02-2024 RBC (Bld) [#/Vol] 4.66 10*6/uL 4.2-5.4 [facility] Serum anion gap measurementO rdered By: Leena Serra on 06-02-2024 Anion gap [Moles/Vol] 9 mmol/L 5-[address] [facility] Serum globulin measurementOr dered By: Leena Serra on 06-02-2024 Globulin (S) [Mass/Vol] 3.2 g/dL 2.2-4.2 [facility] Serum or plasma alanine hay otransferase (ALT) measurementOrdered By: Leena Serra on 06-02-2024 ALT [Catalytic activity/Vol] 26 U/L 13-56 [facility] Serum or plasma albumin criss urement (mass/volume)Ordered By: Leena Serra on 06-02-2024 Albumin [Mass/Vol] 3.5 g/dL 3.2-5.0 [facility] Serum or plasma alkaline ezra sphatase measurementOrdered By: Leena Serra on 06-02-2024 ALP [Catalytic activity/Vol] 66 U/L 45-117 [facility] Serum or plasma calcium criss urement (mass/volume)Ordered By: Leena Serra on 06-02-2024 Calcium [Mass/Vol] 9.6 mg/dL 8.5-10.1 [facility] Serum or plasma creatinine m easurement (mass/volume)Ordered By: Leena Serra on 06-02-2024 Creatinine [Mass/Vol] 1.20 mg/dL High 0.55-1.[address] [facility] Comment on above: The validity of the calculated GFR & GFRAA in patients over 70 years has not been determined. Clinical correlation is essential. Serum or plasma urea nitroge n measurement (mass/volume)Ordered By: Leena Serra on 06-02-2024 Urea nitrogen [Mass/Vol] 34 mg/dL High 7-18 [facility] Sodium levelOrdered By: Ara Serra on 06-02-2024 Sodium [Moles/Vol] 137 mmol/L 136-145 [facility] Total proteinOrdered By: Yolette Serra on 06-02-2024 Protein [Mass/Vol] 6.7 g/dL 6.4-8.2 [facility] White blood cell (WBC) count Ordered By: Leena Serra on 06-02-2024 WBC (Bld) [#/Vol] 4.7 10*3/uL 4.4-11.0 [facility] 12 Lead EKG performed by [facility] on 05-01-2024 12 Lead EKG performed by [facility] [address] [place] [address] 12 Lead EKG performed by [facility] 05/01/24 1329 MR#: [id number] Acct: [id number] Name: ROBERTO FERGUSON Rep #: [id number] : 1935 88 From: Holli Lerner Attending Dr: WISAM Sherman Status: DEP AMB Ordering Dr: Holli Gaona Date: 04/04 Location: [facility] Sex: F C Admitted: BMS/12 Lead EKG performed by [facility] ECG Report Interpretation AV sequentially paced.Electronically signed on 05/06/2024 at 12:44 by Elias Arevalo Software Version [id number] 05/06/24 1249 Date Holli JOEL CC: Dr. Teagan Hall MD Date Dictated: 05/01/241328 Date Transcribed: 05/01/241328 Sustainable Landscape Architect: JIMMIE Signed Normal [facility] Cardiology Visit Reporton Cardiology Visit Report [facility] [address] [place] [address] OFFICE VISIT Date of Service: 05/01/24 MR#: [id number] Acct: [id number] Name: ROBERTO FERGUSON Rep #: [id number] : 1935 Provider: WISAM White Age/Sex: 88/F Location: [facility].G Status: Signed HPI HPI History of Present Illness Details: Roberto Ferguson is an 88-year-old white female who presents today for a follow up on atrial flutter. She does have a hx of CAD status post inferior STEMI status post RCA thrombectomy and PTCA/stent in April 2020 MVP/MR, hyperlipidemia, hypertension, COPD, and hypothyroidism. As you recall, she underwent a stress test on 10/23/2020 was negative for ischemia. Her echocardiogram on 10/23/2020 showed ejection fraction of 65% and akinetic apex. She continued to expresses concerns regarding shortness of breath and underwent pulmonary function tests as well as laboratory evaluation. Her pulmonary function test on 11/19/2020 showed irreversible mild large airways obstructive ventilatory defect. Her BNP on 11/14/2020 was elevated 298.6. She was seen by pulmonology team on 12/09/2020. She continued to have shortness of breath despite inhaler medications. Thus, she underwent a heart catheterization to assess coronary artery disease component. She proceeded with heart catheterization on 01/02/2021 that showed patent mid RCA stent and LAD is angiographically normal with possible mid intramyocardial bridging segment with RADHA-3 flow in both systole and diastole. Circumflex was noted be angiographically normal. Medical therapy was recommended. She presented to the Emergency Department on 01/03/2023 for chest pain. Her EKG showed sinus rhythm with PACs. Her troponin was noted to be positive. She was admitted for orthostatic hypotension and laboratory monitoring. Her medications were adjusted and she was discharged for outpatient follow-up. She was then seen in the emergency department on 01/06/2023, 01/18/2023, and 01/27/2023. On 01/06/2023 she was noted be in atrial fibrillation. She was being set up for cardioversion, but converted to sinus rhythm. She continued to have shortness of breath and her medications were adjusted. She was ultimately started on amiodarone therapy and underwent a DEBRA guided cardioversion version for atrial flutter. Her DEBRA showed ejection fraction of 45%, moderately enlarged left atrium, and moderately enlarged right atrium. 02/23/2023 pt had called our office with concerning of low HR, feeling dizzy, SOB and near syncopal. She asked to present to the ER. On presentation she was noted to be in CHB. She underwent a PPM on 02/24/2023. Her last thoracentesis was 08/2023. Patient still does feel fatigued and short of breath. She states that this recently occurred as she was feeling better after her last office visit. She does not have any chest pain. She does not have any palpitations. She does not have any lightheadedness or dizziness. Intake Vital Signs 01/21/24 13:57 05/01/24 13:30 Height 5 ft 5 in 5 ft 5 in Weight: 122 lb BMI 20.2 BP 101/55 L Blood Pressure Location Lt brachial Position Sitting Respiration 18 Pulse 58 L Pulse Source Monitor Pulse Oximetry (%) 98 Intake Visit Reasons: 3 M FU Heel Room Supervisor Required: No Is patient in pain?: No Allergies ticagrelor (From Brilinta) Adverse Reaction (Severe, Verified 05/01/24 13:30) Severe dyspnea on exertion Medications ???Medication ???Instructions ???Recorded ???Confirmed ???Type abatacept 50 mg/0.4 mL 750 mg IV QMONTH arthritis 12/13/19 05/01/24 History subcutaneous syringe acetaminophen 500 mg tablet 1,000 mg PO BID pain 04/12/20 05/01/24 History lorazepam 0.5 mg tablet 0.25 mg PO QHS PRN anxiety 02/04/23 05/01/24 History levothyroxine 75 mcg tablet 100 mcg PO DAILY thyroid 04/06/23 05/01/24 History calcium carbonate 1,000 mg PO DAILY@0800 PRN 04/07/23 05/01/24 History indigestion amiodarone 200 mg tablet 200 mg PO DAILY #90 tabs 05/25/23 05/01/24 Rx spironolactone 25 mg tablet 25 mg PO QAM #90 tabs 05/25/23 05/01/24 Rx apixaban 2.5 mg tablet 2.5 mg PO BID #180 tabs 10/15/23 05/01/24 Rx mirtazapine 30 mg tablet 30 mg PO DAILY 01/21/24 05/01/24 History sacubitril 24 mg-valsartan 26 mg 1 tab PO BID #180 tabs 01/21/24 05/01/24 Rx tablet (Entresto) dapagliflozin propanediol 10 mg 10 mg PO QAM #90 tabs 02/01/24 05/01/24 Rx tablet (Farxiga) metoprolol tartrate 50 mg tablet 50 mg PO BID #180 tabs 05/01/24 05/01/24 Rx Have you fallen in the past year?: No [facility] Medical History Presence of permanent cardiac pacemaker CKD (chronic kidney disease) stage 3, GFR 30-59 ml/min Non-rheumatic mitral regurgitation Mitral valve insufficiency Rheumatoid arthritis STEMI (ST elev (more content not included)... Normal [facility] Basic Metabolic Profile (BMP )on 02-15-2024 BUN/CRE 28.1 RATIO High 02-19 [facility] Comment on above: Performed By: #### L 500.4050, L503.6620 #### [facility] [address] [place], [address] CA,Total 9.7 mg/dL Normal 8.5-10.1 [facility] Comment on above: Performed By: #### L 500.4050, L503.6620 #### [facility] [address] [place], [address] Chloride [Moles/Vol] 102 mmol/L Normal 98-107 [facility] Comment on above: Performed By: #### L 500.4050, L503.6620 #### [facility] [address] [place], [address] CO2 [Moles/Vol] 26.0 mmol/L Normal 21.0-32.0 [facility] Comment on above: Performed By: #### L 500.4050, L503.6620 #### [facility] [address] [place], [address] Creatinine [Mass/Vol] 1.28 mg/dL High 0.55-1.[address] [facility] Comment on above: Result Comment: The validity of the calculated GFR GFRAA in patients over 70 years has not been determined. Clinical correlation is essential. Performed By: #### L 500.4050, L503.6620 #### [facility] [address] [place], [address] EST GFR - AA 51 mL/min Low >60 [facility] Comment on above: Result Comment: Afri can Armenian GFR Calc Performed By: #### L 500.4050, L503.6620 #### [facility] [address] [place], [address] GAP 8 Normal 5-15 [facility] Comment on above: Performed By: #### L 500.4050, L503.6620 #### [facility] [address] [place], [address] GFR/1.73 sq M.predicted among non-blacks MDRD (S/P/Bld) [Vol rate/Area] 42 mL/min/{1.73_m2} Low >60 [facility] Comment on above: Result Comment: Non- GFR Calc Performed By: #### L 500.4050, L503.6620 #### [facility] [address] [place], [address] Glucose [Mass/Vol] 120 mg/dL High 74-106 [facility] Comment on above: Result Comment: Fast ing Glucose result from 100 to 125 mg/dL suggests IMPAIRED HOMEOSTASIS per A.D.A. criteria. Performed By: #### L 500.4050, L503.6620 #### [facility] [address] [place], [address] Potassium [Moles/Vol] 3.5 mmol/L Normal 3.5-5.[address] [facility] Comment on above: Performed By: #### L 500.4050, L503.6620 #### [facility] [address] [place], [address] Sodium [Moles/Vol] 137 mmol/L Normal 136-145 [facility] Comment on above: Performed By: #### L 500.4050, L503.6620 #### [facility] [address] [place], [address] Urea nitrogen [Mass/Vol] 36 mg/dL High 7-18 [facility] Comment on above: Performed By: #### L 500.4050, L503.6620 #### [facility] [address] [place], [address] CBC W/Diff, Automatedon 10-0 Absolute Lymph 1.30 X10 3/uL Normal 0.83-4.51 [facility] Comment on above: Order Comment: Order Date: 12/06/23 Order Info: [id number] - LIPID Order Info: [id number] - T4 Order Info: [id number] - TSH DR. SERRA ORDERED CMP ORDERED BTNP,LIPID,T4,TSH, Performed By: #### L 500.4050, L503.6620 #### [facility] [address] [place], [address] Absolute Neut 3.7 X10 3/uL Normal 2.0-7.7 [facility] Comment on above: Order Comment: Order Date: 12/06/23 Order Info: [id number] - LIPID Order Info: [id number] - T4 Order Info: [id number] - TSH DR. SERRA ORDERED CMP ORDERED BTNP,LIPID,T4,TSH, Performed By: #### L 500.4050, L503.6620 #### [facility] [address] [place], [address] Basophils/100 WBC (Bld) 0.4 % Normal 0-1 [facility] Comment on above: Order Comment: Order Date: 12/06/23 Order Info: [id number] - LIPID Order Info: [id number] - T4 Order Info: [id number] - TSH DR. SERRA ORDERED CMP ORDERED BTNP,LIPID,T4,TSH, Performed By: #### L 500.4050, L503.6620 #### [facility] [address] [place], [address] Eosinophils/100 WBC (Bld) 0.9 % Normal 0-5 [facility] Comment on above: Order Comment: Order Date: 12/06/23 Order Info: [id number] - LIPID Order Info: 2 - T4 Order Info: [id number] - TSH DR. SERRA ORDERED CMP ORDERED BTNP,LIPID,T4,TSH, Performed By: #### L 500.4050, L503.6620 #### [facility] [address] [place], [address] Erythrocyte distribution width (RBC) [Ratio] 13.9 % Normal 11.6-14.6 [facility] Comment on above: Order Comment: Order Date: 12/06/23 Order Info: [id number] - LIPID Order Info: 2 - T4 Order Info: [id number] - TSH DR. SERRA ORDERED CMP ORDERED BTNP,LIPID,T4,TSH, Performed By: #### L 500.4050, L503.6620 #### [facility] [address] [place], [address] Hematocrit (Bld) [Volume fraction] 45.6 % Normal 37-47 [facility] Comment on above: Order Comment: Order Date: 12/06/23 Order Info: [id number] - LIPID Order Info: 2 - T4 Order Info: 3 - TSH DR. SERRA ORDERED CMP ORDERED BTNP,LIPID,T4,TSH, Performed By: #### L 500.4050, L503.6620 #### [facility] [address] [place], [address] Hemoglobin (Bld) [Mass/Vol] 14.6 g/dL Normal 12.0-15.0 [facility] Comment on above: Order Comment: Order Date: 12/06/23 Order Info: [id number] - LIPID Order Info: [id number] - T4 Order Info: [id number] - TSH DR. SERRA ORDERED CMP ORDERED BTNP,LIPID,T4,TSH, Performed By: #### L 500.4050, L503.6620 #### [facility] [address] [place], [address] IG% 0.400 Normal 0.0-0.9 [facility] Comment on above: Order Comment: Order Date: 12/06/23 Order Info: [id number] - LIPID Order Info: 2 - T4 Order Info: 3 - TSH DR. SERRA ORDERED CMP ORDERED BTNP,LIPID,T4,TSH, Result Comment: IG% - Immature Granulocytes (promyelocytes, myelocytes and metamyelocytes) > 1% indicates that a LEFT SHIFT is Present. Performed By: #### L 500.4050, L503.6620 #### [facility] [address] [place], [address] Lymphocytes/100 WBC (Bld) 23.7 % Normal 19-41 [facility] Comment on above: Order Comment: Order Date: 12/06/23 Order Info: [id number] - LIPID Order Info: [id number] - T4 Order Info: [id number] - TSH DR. SERRA ORDERED CMP ORDERED BTNP,LIPID,T4,TSH, Performed By: #### L 500.4050, L503.6620 #### [facility] [address] [place], [address] MCH (RBC) [Entitic mass] 30.3 pg Normal 27.0-32.0 [facility] Comment on above: Order Comment: Order Date: 12/06/23 Order Info: [id number] - LIPID Order Info: [id number] - T4 Order Info: [id number] - TSH DR. SERRA ORDERED CMP ORDERED BTNP,LIPID,T4,TSH, Performed By: #### L 500.4050, L503.6620 #### [facility] [address] [place], [address] MCHC (RBC) [Mass/Vol] 32.0 g/dL Normal 32-[address] [facility] Comment on above: Order Comment: Order Date: 12/06/23 Order Info: [id number] - LIPID Order Info: [id number] - T4 Order Info: [id number] - TSH DR. SERRA ORDERED CMP ORDERED BTNP,LIPID,T4,TSH, Performed By: #### L 500.4050, L503.6620 #### [facility] [address] [place], [address] MCV (RBC) [Entitic vol] 94.6 fL Normal 81-99 [facility] Comment on above: Order Comment: Order Date: 12/06/23 Order Info: [id number] - LIPID Order Info: [id number] - T4 Order Info: [id number] - TSH DR. SERRA ORDERED CMP ORDERED BTNP,LIPID,T4,TSH, Performed By: #### L 500.4050, L503.6620 #### [facility] [address] [place], [address] Monocytes/100 WBC (Bld) 7.1 % Normal 0-10 [facility] Comment on above: Order Comment: Order Date: 12/06/23 Order Info: [id number] - LIPID Order Info: [id number] - T4 Order Info: [id number] - TSH DR. SERRA ORDERED CMP ORDERED BTNP,LIPID,T4,TSH, Performed By: #### L 500.4050, L503.6620 #### [facility] [address] [place], [address] Neutrophils/100 WBC (Bld) 67.5 % Normal 47-70 [facility] Comment on above: Order Comment: Order Date: 12/06/23 Order Info: [id number] - LIPID Order Info: [id number] - T4 Order Info: [id number] - TSH DR. SERRA ORDERED CMP ORDERED BTNP,LIPID,T4,TSH, Performed By: #### L 500.4050, L503.6620 #### [facility] [address] [place], [address] Nucleated RBC (Bld) [#/Vol] 0 10*3/uL Normal 0-5 [facility] Comment on above: Order Comment: Order Date: 12/06/23 Order Info: [id number] - LIPID Order Info: 2 - T4 Order Info: 3 - TSH DR. SERRA ORDERED CMP ORDERED BTNP,LIPID,T4,TSH, Performed By: #### L 500.4050, [id number] #### [facility] [address] [place], [address] Platelet mean volume (Bld) [Entitic vol] 11.4 fL Normal 6.2-12.0 [facility] Comment on above: Order Comment: Order Date: 12/06/23 Order Info: [id number] - LIPID Order Info: 2 - T4 Order Info: 3 - TSH DR. SERRA ORDERED CMP ORDERED BTNP,LIPID,T4,TSH, Performed By: #### L 500.4050, [id number] #### [facility] [address] [place], [address] Platelets (Bld) [#/Vol] 153 10*3/uL Normal 150-450 [facility] Comment on above: Order Comment: Order Date: 12/06/23 Order Info: [id number] - LIPID Order Info: 3025-2 - T4 Order Info: 3015-3 - TSH DR. SERRA ORDERED CMP ORDERED BTNP,LIPID,T4,TSH, Performed By: #### L 500.4050, [id number] #### [facility] [address] [place], [address] RBC (Bld) [#/Vol] 4.82 10*6/uL Normal 4.2-5.4 [facility] Comment on above: Order Comment: Order Date: 12/06/23 Order Info: [id number] - LIPID Order Info: 6-2 - T4 Order Info: 3016-3 - TSH DR. SERRA ORDERED CMP ORDERED BTNP,LIPID,T4,TSH, Performed By: #### L 500.4050, [id number] #### [facility] [address] [place], [address] RDW SD 48.3 fl High 35.1-43.9 [facility] Comment on above: Order Comment: Order Date: 12/06/23 Order Info: [id number] - LIPID Order Info: 6-2 - T4 Order Info: 3015-3 - TSH DR. SERRA ORDERED CMP ORDERED BTNP,LIPID,T4,TSH, Performed By: #### L 500.4050, [id number] #### [facility] [address] [place], [address] WBC (Bld) [#/Vol] 5.5 10*3/uL Normal 4.4-11.0 [facility] Comment on above: Order Comment: Order Date: 12/06/23 Order Info: [id number] - LIPID Order Info: 6-2 - T4 Order Info: 3016-3 - TSH DR. SERRA ORDERED CMP ORDERED BTNP,LIPID,T4,TSH, Performed By: #### L 500.4050, [id number] #### [facility] [address] [place], [address] Comprehensive Metabolic Prof ilon 02-01-2024 Albumin [Mass/Vol] 3.2 g/dL Normal 3.2-5.0 [facility] Comment on above: Order Comment: Order Date: 12/06/23 Order Info: [id number] - LIPID Order Info: 3026-2 - T4 Order Info: 3 - TSH DR. SERRA ORDERED CMP ORDERED BTNP,LIPID,T4,TSH, Performed By: #### L 500.4050, [id number] #### [facility] [address] [place], [address] Albumin/Globulin [Mass ratio] 0.9 {ratio} Normal 0.9-2.4 [facility] Comment on above: Order Comment: Order Date: 12/06/23 Order Info: [id number] - LIPID Order Info: 2 - T4 Order Info: 3 - TSH DR. SERRA ORDERED CMP ORDERED BTNP,LIPID,T4,TSH, Performed By: #### L 500.4050, [id number] #### [facility] [address] [place], [address] ALK P 66 U/L Normal 45-117 [facility] Comment on above: Order Comment: Order Date: 12/06/23 Order Info: [id number] - LIPID Order Info: 2 - T4 Order Info: 3 - TSH DR. SERRA ORDERED CMP ORDERED BTNP,LIPID,T4,TSH, Performed By: #### L 500.4050, [id number] #### [facility] [address] [place], [address] ALT [Catalytic activity/Vol] 21 U/L Normal 13-56 [facility] Comment on above: Order Comment: Order Date: 12/06/23 Order Info: [id number] - LIPID Order Info: 3025-2 - T4 Order Info: 3015-3 - TSH DR. SERRA ORDERED CMP ORDERED BTNP,LIPID,T4,TSH, Performed By: #### L 500.4050, [id number] #### [facility] [address] [place], [address] AST [Catalytic activity/Vol] 18 U/L Normal 15-37 [facility] Comment on above: Order Comment: Order Date: 12/06/23 Order Info: [id number] - LIPID Order Info: 3026-2 - T4 Order Info: 3016-3 - TSH DR. SERRA ORDERED CMP ORDERED BTNP,LIPID,T4,TSH, Performed By: #### L 500.4050, [id number] #### [facility] [address] [place], [address] Bilirubin [Mass/Vol] 0.60 mg/dL Normal 0.20-1.00 [facility] Comment on above: Order Comment: Order Date: 12/06/23 Order Info: [id number] - LIPID Order Info: 3025-2 - T4 Order Info: 3016-3 - TSH DR. SERRA ORDERED CMP ORDERED BTNP,LIPID,T4,TSH, Result Comment: For patients on eltrombopag therapy, use of Dimension [place] TBIL is not recommended. Performed By: #### L 500.4050, [id number] #### [facility] [address] [place], [address] BUN/CRE 30.7 RATIO High 10-20 [facility] Comment on above: Order Comment: Order Date: 12/06/23 Order Info: [id number] - LIPID Order Info: 3026-2 - T4 Order Info: 3016-3 - TSH DR. SERRA ORDERED CMP ORDERED BTNP,LIPID,T4,TSH, Performed By: #### L 500.4050, [id number] #### [facility] [address] [place], [address] CA,Total 9.1 mg/dL Normal 8.5-10.1 [facility] Comment on above: Order Comment: Order Date: 12/06/23 Order Info: [id number] - LIPID Order Info: 3026-2 - T4 Order Info: 3016-3 - TSH DR. SERRA ORDERED CMP ORDERED BTNP,LIPID,T4,TSH, Performed By: #### L 500.4050, [id number] #### [facility] [address] [place], [address] Chloride [Moles/Vol] 103 mmol/L Normal 98-107 [facility] Comment on above: Order Comment: Order Date: 12/06/23 Order Info: [id number] - LIPID Order Info: 3026-2 - T4 Order Info: 3016-3 - TSH DR. SERRA ORDERED CMP ORDERED BTNP,LIPID,T4,TSH, Performed By: #### L 500.4050, [id number] #### [facility] [address] [place], [address] CO2 [Moles/Vol] 23.0 mmol/L Normal 21.0-32.0 [facility] Comment on above: Order Comment: Order Date: 12/06/23 Order Info: [id number] - LIPID Order Info: 6-2 - T4 Order Info: 3015-3 - TSH DR. SERRA ORDERED CMP ORDERED BTNP,LIPID,T4,TSH, Performed By: #### L 500.4050, [id number] #### [facility] [address] [place], [address] Creatinine [Mass/Vol] 1.27 mg/dL High 0.55-1.[address] [facility] Comment on above: Order Comment: Order Date: 12/06/23 Order Info: [id number] - LIPID Order Info: 3025-2 - T4 Order Info: 3015-3 - TSH DR. SERRA ORDERED CMP ORDERED BTNP,LIPID,T4,TSH, Result Comment: The validity of the calculated GFR GFRAA in patients over 70 years has not been determined. Clinical correlation is essential. Performed By: #### L 500.4050, [id number] #### [facility] [address] [place], [address] EST GFR - AA 51 mL/min Low >60 [facility] Comment on above: Order Comment: Order Date: 12/06/23 Order Info: [id number] - LIPID Order Info: 6-2 - T4 Order Info: 3016-3 - TSH DR. SERRA ORDERED CMP ORDERED BTNP,LIPID,T4,TSH, Result Comment: Afri can Armenian GFR Calc Performed By: #### L 500.4050, [id number] #### [facility] [address] [place], [address] GAP 10 Normal 5-15 [facility] Comment on above: Order Comment: Order Date: 12/06/23 Order Info: [id number] - LIPID Order Info: 3025-2 - T4 Order Info: 3015-3 - TSH DR. SERRA ORDERED CMP ORDERED BTNP,LIPID,T4,TSH, Performed By: #### L 500.4050, [id number] #### [facility] [address] [place], [address] GFR/1.73 sq M.predicted among non-blacks MDRD (S/P/Bld) [Vol rate/Area] 42 mL/min/{1.73_m2} Low >60 [facility] Comment on above: Order Comment: Order Date: 12/06/23 Order Info: [id number] - LIPID Order Info: 3025-2 - T4 Order Info: 3015-3 - TSH DR. SERRA ORDERED CMP ORDERED BTNP,LIPID,T4,TSH, Result Comment: Non- GFR Calc Performed By: #### L 500.4050, [id number] #### [facility] [address] [place], [address] Globulin (S) [Mass/Vol] 3.6 g/dL Normal 2.2-4.2 [facility] Comment on above: Order Comment: Order Date: 12/06/23 Order Info: [id number] - LIPID Order Info: 3026-2 - T4 Order Info: 3016-3 - TSH DR. SERRA ORDERED CMP ORDERED BTNP,LIPID,T4,TSH, Performed By: #### L 500.4050, [id number] #### [facility] [address] [place], [address] Glucose [Mass/Vol] 148 mg/dL High 74-106 [facility] Comment on above: Order Comment: Order Date: 12/06/23 Order Info: [id number] - LIPID Order Info: 3026-2 - T4 Order Info: 3016-3 - TSH DR. SERRA ORDERED CMP ORDERED BTNP,LIPID,T4,TSH, Result Comment: Fast ing Glucose result greater than or equal to 126 mg/dL suggests DIABETES MELLITUS per A.D.A. criteria. Performed By: #### L 500.4050, [id number] #### [facility] [address] [place], [address] Potassium [Moles/Vol] 4.0 mmol/L Normal 3.5-5.[address] [facility] Comment on above: Order Comment: Order Date: 12/06/23 Order Info: [id number] - LIPID Order Info: 6-2 - T4 Order Info: 3016-3 - TSH DR. SERRA ORDERED CMP ORDERED BTNP,LIPID,T4,TSH, Performed By: #### L 500.4050, [id number] #### [facility] [address] [place], [address] Sodium [Moles/Vol] 135 mmol/L Low 136-145 [facility] Comment on above: Order Comment: Order Date: 12/06/23 Order Info: [id number] - LIPID Order Info: 3026-2 - T4 Order Info: 3016-3 - TSH DR. SERRA ORDERED CMP ORDERED BTNP,LIPID,T4,TSH, Performed By: #### L 500.4050, [id number] #### [facility] [address] [place], [address] T PROT 6.8 g/dL Normal 6.4-8.2 [facility] Comment on above: Order Comment: Order Date: 12/06/23 Order Info: [id number] - LIPID Order Info: 3026-2 - T4 Order Info: 3016-3 - TSH DR. SERRA ORDERED CMP ORDERED BTNP,LIPID,T4,TSH, Performed By: #### L 500.4050, [id number] #### [facility] [address] [place], [address] Urea nitrogen [Mass/Vol] 39 mg/dL High 7-18 [facility] Comment on above: Order Comment: Order Date: 12/06/23 Order Info: [id number] - LIPID Order Info: 3026-2 - T4 Order Info: 3016-3 - TSH DR. SERRA ORDERED CMP ORDERED BTNP,LIPID,T4,TSH, Performed By: #### L 500.4050, [id number] #### [facility] [address] [place], [place], [address] 12 Lead EKG performed by [facility] on 01-21-2024 12 Lead EKG performed by [facility] [address] [place] [address] 12 Lead EKG performed by [facility] 01/21/24 0915 MR#: [id number] Acct: [id number] Name: ROBERTO FERGUSON Rep #: [id number] : 1935 88 From: Holli Lerner Attending Dr: WISAM Sherman Status: DEP AMB Ordering Dr: Holli Gaona Date: 01/02 Location: [facility] Sex: F C Admitted: [facility]/12 Lead EKG performed by [facility] ECG Report Interpretation Phuong ctronic atrial pacemaker -Intraventricular conduction defect and left axis -possible anterior fascicular block consider ventricular hypertrophy. -Combined atrial enlargement. - Extensive anterior-lateral infarct Old. - Nonspecific T-abnormality. ABNORMAL Electronically signed on 01/25/2024 at 14:35 by Elias Arevalo Software Version [id number] 01/25/24 1441 Date Holli JOEL CC: Dr. Teagan Hall MD Date Dictated: 01/21/24914 Date Transcribed: 01/21/24914 Sustainable Landscape Architect: JIMMIE Signed Normal [facility] Cardiology Visit Reporton Cardiology Visit Report [facility] [address] [place], [place] [address] OFFICE VISIT Date of Service: 01/21/24 MR#: [id number] Acct: [id number] Name: ROBERTO FERGUSON Rep #: [id number] : 1935 Provider: WISAM White Age/Sex: 88/F Location: [facility] Status: Signed HPI HPI History of Present Illness Details: Roberto Ferguson is an 88-year-old white female who presents today for a follow up on atrial flutter. She does have a hx of CAD status post inferior STEMI status post RCA thrombectomy and PTCA/stent in April 2020 MVP/MR, hyperlipidemia, hypertension, COPD, and hypothyroidism. As you recall, she underwent a stress test on 10/23/2020 was negative for ischemia. Her echocardiogram on 10/23/2020 showed ejection fraction of 65% and akinetic apex. She continued to expresses concerns regarding shortness of breath and underwent pulmonary function tests as well as laboratory evaluation. Her pulmonary function test on 11/19/2020 showed irreversible mild large airways obstructive ventilatory defect. Her BNP on 11/14/2020 was elevated 298.6. She was seen by pulmonology team on 12/09/2020. She continued to have shortness of breath despite inhaler medications. Thus, she underwent a heart catheterization to assess coronary artery disease component. She proceeded with heart catheterization on 01/02/2021 that showed patent mid RCA stent and LAD is angiographically normal with possible mid intramyocardial bridging segment with RADHA-3 flow in both systole and diastole. Circumflex was noted be angiographically normal. Medical therapy was recommended. She presented to the Emergency Department on 01/03/2023 for chest pain. Her EKG showed sinus rhythm with PACs. Her troponin was noted to be positive. She was admitted for orthostatic hypotension and laboratory monitoring. Her medications were adjusted and she was discharged for outpatient follow-up. She was then seen in the emergency department on 01/06/2023, 01/18/2023, and 01/27/2023. On 01/06/2023 she was noted be in atrial fibrillation. She was being set up for cardioversion, but converted to sinus rhythm. She continued to have shortness of breath and her medications were adjusted. She was ultimately started on amiodarone therapy and underwent a DEBRA guided cardioversion version for atrial flutter. Her DEBRA showed ejection fraction of 45%, moderately enlarged left atrium, and moderately enlarged right atrium. 02/23/2023 pt had called our office with concerning of low HR, feeling dizzy, SOB and near syncopal. She asked to present to the ER. On presentation she was noted to be in CHB. She underwent a PPM on 02/24/2023. Her last thoracentesis was 08/2023. Her biggest complaint is fatigue. She is sleeping thru the night. She does have some SOB with exertion. Intake Vital Signs 10/11/23 14:01 01/21/24 13:57 Height 5 ft 5 in 5 ft 5 in Weight: 121 lb BMI 20.1 BP 114/73 Blood Pressure Location Lt brachial Position Sitting Respiration 22 H Pulse 59 L Pulse Source Monitor Pulse Oximetry (%) 96 Intake Visit Reasons: 6 M Heel Room Supervisor Required: No Is patient in pain?: No Allergies ticagrelor (From Brilinta) Adverse Reaction (Severe, Verified 01/21/24 13:58) Severe dyspnea on exertion Medications ???Medication ???Instructions ???Recorded ???Confirmed ???Type abatacept 50 mg/0.4 mL 750 mg IV QMONTH arthritis 12/13/19 10/11/23 History subcutaneous syringe acetaminophen 500 mg tablet 1,000 mg PO BID pain 04/12/20 10/11/23 History lorazepam 0.5 mg tablet 0.25 mg PO QHS PRN anxiety 02/04/23 01/21/24 History levothyroxine 75 mcg tablet 100 mcg PO DAILY thyroid 04/06/23 01/21/24 History calcium carbonate 1,000 mg PO DAILY@0800 PRN 04/07/23 10/11/23 History indigestion amiodarone 200 mg tablet 200 mg PO DAILY #90 tabs 05/25/23 01/21/24 Rx metoprolol tartrate 25 mg tablet 25 mg PO BID #180 tabs 05/25/23 01/21/24 Rx spironolactone 25 mg tablet 25 mg PO QAM #90 tabs 05/25/23 01/21/24 Rx apixaban 2.5 mg tablet 2.5 mg PO BID #180 tabs 10/15/23 01/21/24 Rx furosemide 20 mg tablet 20 mg PO QDAY #90 tabs 01/21/24 01/21/24 Rx mirtazapine 30 mg tablet 30 mg PO DAILY 01/21/24 01/21/24 History sacubitril 24 mg-valsartan 26 mg 1 tab PO BID #180 tabs 01/21/24 01/21/24 Rx tablet (Entresto) Have you fallen in the past year?: No PFSH Medical History Presence of permanent cardiac pacemaker CKD (chronic kidney disease) stage 3, GFR 30-59 ml/min Non-rheumatic mitral regurgitation Mitral valve insufficiency Rheumatoid arthritis STEMI (ST elevation myocardial infarction) Atherosclerosis of coronary artery of [place] heart without angina pectoris History of coronary artery stent placement (04/12/20) Osteomyelitis of left lower extremit (more content not included)... Normal [facility] BNP,B-Type NATRIURETIC PEPTI Cristopher 12-23-2023 Natriuretic peptide B (Bld) [Mass/Vol] 549.0 pg/mL High 0-100 [facility] Comment on above: Order Comment: DR.VE TAPIA ORDERED CMP DR HALL ORDERED THE REST Performed By: #### L 500.1140, L503.6635 #### [facility] [address] [place], [address] Comprehensive Metabolic Prof [facility] 12-23-2023 Albumin [Mass/Vol] 3.4 g/dL Normal 3.2-5.0 [facility] Comment on above: Order Comment: Order Date: 12/06/23 Order Info: [id number] - LIPID Order Info: 3025-2 - T4 Order Info: 3015-3 - TSH DR. SERRA ORDERED CMP ORDERED BTNP,LIPID,T4,TSH, Performed By: #### L 500.4050, L503.6620 #### [facility] [address] [place], [address] Albumin/Globulin [Mass ratio] 0.9 {ratio} Normal 0.9-2.4 [facility] Comment on above: Order Comment: Order Date: 12/06/23 Order Info: [id number] - LIPID Order Info: 2 - T4 Order Info: 3015-3 - TSH DR. SERRA ORDERED CMP ORDERED BTNP,LIPID,T4,TSH, Performed By: #### L 500.4050, L503.6620 #### [facility] [address] [place], [address] ALK P 67 U/L Normal 45-117 [facility] Comment on above: Order Comment: Order Date: 12/06/23 Order Info: [id number] - LIPID Order Info: 3025-2 - T4 Order Info: 3015-3 - TSH DR. SERRA ORDERED CMP ORDERED BTNP,LIPID,T4,TSH, Performed By: #### L 500.4050, L503.6620 #### [facility] [address] [place], [address] ALT [Catalytic activity/Vol] 20 U/L Normal 13-56 [facility] Comment on above: Order Comment: Order Date: 12/06/23 Order Info: [id number] - LIPID Order Info: 3025-2 - T4 Order Info: 6-3 - TSH DR. SERRA ORDERED CMP ORDERED BTNP,LIPID,T4,TSH, Performed By: #### L 500.4050, L503.6620 #### [facility] [address] [place], [address] AST [Catalytic activity/Vol] 23 U/L Normal 15-37 [facility] Comment on above: Order Comment: Order Date: 12/06/23 Order Info: [id number] - LIPID Order Info: 3026-2 - T4 Order Info: 3016-3 - TSH DR. SERRA ORDERED CMP ORDERED BTNP,LIPID,T4,TSH, Performed By: #### L 500.4050, L503.6620 #### [facility] [address] [place], [address] Bilirubin [Mass/Vol] 0.50 mg/dL Normal 0.20-1.00 [facility] Comment on above: Order Comment: Order Date: 12/06/23 Order Info: [id number] - LIPID Order Info: 6-2 - T4 Order Info: 3016-3 - TSH DR. SERRA ORDERED CMP ORDERED BTNP,LIPID,T4,TSH, Result Comment: For patients on eltrombopag therapy, use of Dimension [place] TBIL is not recommended. Performed By: #### L 500.4050, L503.6620 #### [facility] [address] [place], [address] BUN/CRE 36.2 RATIO High 10-20 [facility] Comment on above: Order Comment: Order Date: 12/06/23 Order Info: [id number] - LIPID Order Info: 3026-2 - T4 Order Info: 3016-3 - TSH DR. SERRA ORDERED CMP ORDERED BTNP,LIPID,T4,TSH, Performed By: #### L 500.4050, [id number] #### [facility] [address] [place], [address] CA,Total 9.2 mg/dL Normal 8.5-10.1 [facility] Comment on above: Order Comment: Order Date: 12/06/23 Order Info: [id number] - LIPID Order Info: 3026-2 - T4 Order Info: 3016-3 - TSH DR. SERRA ORDERED CMP ORDERED BTNP,LIPID,T4,TSH, Performed By: #### L 500.4050, [id number] #### [facility] [address] [place], [address] Chloride [Moles/Vol] 101 mmol/L Normal 98-107 [facility] Comment on above: Order Comment: Order Date: 12/06/23 Order Info: [id number] - LIPID Order Info: 302-2 - T4 Order Info: 3 - TSH DR. SERRA ORDERED CMP ORDERED BTNP,LIPID,T4,TSH, Performed By: #### L 500.4050, L503.6620 #### [facility] [address] [place], [address] CO2 [Moles/Vol] 23.0 mmol/L Normal 21.0-32.0 [facility] Comment on above: Order Comment: Order Date: 12/06/23 Order Info: [id number] - LIPID Order Info: 3025-2 - T4 Order Info: 3 - TSH DR. SERRA ORDERED CMP ORDERED BTNP,LIPID,T4,TSH, Performed By: #### L 500.4050, L503.6620 #### [facility] [address] [place], [address] Creatinine [Mass/Vol] 1.30 mg/dL High 0.55-1.[address] [facility] Comment on above: Order Comment: Order Date: 12/06/23 Order Info: [id number] - LIPID Order Info: 3026-2 - T4 Order Info: 3015-3 - TSH DR. SERRA ORDERED CMP ORDERED BTNP,LIPID,T4,TSH, Result Comment: The validity of the calculated GFR GFRAA in patients over 70 years has not been determined. Clinical correlation is essential. Performed By: #### L 500.4050, L503.6620 #### [facility] [address] [place], [address] EST GFR - AA 50 mL/min Low >60 [facility] Comment on above: Order Comment: Order Date: 12/06/23 Order Info: [id number] - LIPID Order Info: 3025-2 - T4 Order Info: 3015-3 - TSH DR. SERRA ORDERED CMP ORDERED BTNP,LIPID,T4,TSH, Result Comment: Afri can Armenian GFR Calc Performed By: #### L 500.4050, L503.6620 #### [facility] [address] [place], [address] GAP 12 Normal 5-15 [facility] Comment on above: Order Comment: Order Date: 12/06/23 Order Info: [id number] - LIPID Order Info: 2 - T4 Order Info: 3015-3 - TSH DR. SERRA ORDERED CMP ORDERED BTNP,LIPID,T4,TSH, Performed By: #### L 500.4050, L503.6620 #### [facility] [address] [place], [address] GFR/1.73 sq M.predicted among non-blacks MDRD (S/P/Bld) [Vol rate/Area] 41 mL/min/{1.73_m2} Low >60 [facility] Comment on above: Order Comment: Order Date: 12/06/23 Order Info: [id number] - LIPID Order Info: 2 - T4 Order Info: 3015-3 - TSH DR. SERRA ORDERED CMP ORDERED BTNP,LIPID,T4,TSH, Result Comment: Non- GFR Calc Performed By: #### L 500.4050, [id number] #### [facility] [address] [place], [address] Globulin (S) [Mass/Vol] 3.8 g/dL Normal 2.2-4.2 [facility] Comment on above: Order Comment: Order Date: 12/06/23 Order Info: [id number] - LIPID Order Info: 3025-2 - T4 Order Info: 3015-07 - TSH DR. SERRA ORDERED CMP ORDERED BTNP,LIPID,T4,TSH, Performed By: #### L 500.4050, L503.6620 #### [facility] [address] [place], [address] Glucose [Mass/Vol] 136 mg/dL High 74-106 [facility] Comment on above: Order Comment: Order Date: 12/06/23 Order Info: [id number] - LIPID Order Info: 2 - T4 Order Info: 3 - TSH DR. SERRA ORDERED CMP ORDERED BTNP,LIPID,T4,TSH, Result Comment: Fast ing Glucose result greater than or equal to 126 mg/dL suggests DIABETES MELLITUS per A.D.A. criteria. Performed By: #### L 500.4050, L503.6620 #### [facility] [address] [place], [address] Potassium [Moles/Vol] 3.6 mmol/L Normal 3.5-5.[address] [facility] Comment on above: Order Comment: Order Date: 12/06/23 Order Info: [id number] - LIPID Order Info: 2 - T4 Order Info: [id number] - TSH DR. SERRA ORDERED CMP ORDERED BTNP,LIPID,T4,TSH, Performed By: #### L 500.4050, [id number] #### [facility] [address] [place], [address] Sodium [Moles/Vol] 136 mmol/L Normal 136-145 [facility] Comment on above: Order Comment: Order Date: 12/06/23 Order Info: [id number] - LIPID Order Info: 3025-2 - T4 Order Info: 3015-3 - TSH DR. SERRA ORDERED CMP ORDERED BTNP,LIPID,T4,TSH, Performed By: #### L 500.4050, L503.6620 #### [facility] [address] [place], [address] T PROT 7.2 g/dL Normal 6.4-8.2 [facility] Comment on above: Order Comment: Order Date: 12/06/23 Order Info: [id number] - LIPID Order Info: 6-2 - T4 Order Info: 6-3 - TSH DR. SERRA ORDERED CMP ORDERED BTNP,LIPID,T4,TSH, Performed By: #### L 500.4050, L503.6620 #### [facility] [address] [place], [address] Urea nitrogen [Mass/Vol] 47 mg/dL High 7-18 [facility] Comment on above: Order Comment: Order Date: 12/06/23 Order Info: [id number] - LIPID Order Info: [id number] - T4 Order Info: [id number] - TSH DR. SERRA ORDERED CMP ORDERED BTNP,LIPID,T4,TSH, Performed By: #### L 500.4050, L503.6620 #### [facility] [address] [place], [address] Lipid Profileon 12-23-2023 Cholesterol [Mass/Vol] 116 mg/dL Normal 200 [facility] Comment on above: Order Comment: Order Date: 12/06/23 Order Info: [id number] - LIPID Order Info: [id number] - T4 Order Info: 301-3 - TSH DR. SERRA ORDERED CMP ORDERED BTNP,LIPID,T4,TSH, Result Comment: <200 mg/dL Desirable 200-240 mg/dL Borderline >240 mg/dL High Risk Performed By: #### L 500.4050, L503.6620 #### [facility] [address] [place], [address] Cholesterol in HDL [Mass/Vol] 71 mg/dL Normal [facility] Comment on above: Order Comment: Order Date: 12/06/23 Order Info: [id number] - LIPID Order Info: [id number] - T4 Order Info: 301-3 - TSH DR. SERRA ORDERED CMP ORDERED BTNP,LIPID,T4,TSH, Result Comment: The drugs N-Acetylcysteine and Metamizole may falsely depress this assay. Reference Range HDL <40 mg/dL Low HDL Cholesterol HDL >or= 60 mg/dL High HDL Cholesterol Performed By: #### L 500.4050, L503.6620 #### [facility] [address] [place], [address] Cholesterol in LDL [Mass/Vol] 32 mg/dL Normal 0-130 [facility] Comment on above: Order Comment: Order Date: 12/06/23 Order Info: [id number] - LIPID Order Info: [id number] - T4 Order Info: [id number] - TSH DR. SERRA ORDERED CMP ORDERED BTNP,LIPID,T4,TSH, Performed By: #### L 500.4050, L503.6620 #### [facility] [address] [facility] [place], [address] Cholesterol in VLDL [Mass/Vol] 13 mg/dL Normal 5-40 [facility] Comment on above: Order Comment: Order Date: 12/06/23 Order Info: [id number] - LIPID Order Info: [id number] - T4 Order Info: 6-3 - TSH DR. SERRA ORDERED CMP ORDERED BTNP,LIPID,T4,TSH, Performed By: #### L 500.4050, L503.6620 #### [facility] [address] [place], [address] Triglyceride [Mass/Vol] 67 mg/dL Normal [facility] Comment on above: Order Comment: Order Date: 12/06/23 Order Info: [id number] - LIPID Order Info: [id number] - T4 Order Info: [id number] - TSH DR. SERRA ORDERED CMP ORDERED BTNP,LIPID,T4,TSH, Result Comment: The drugs N-Acetylcysteine and Metamizole may falsely depress this assay. Serum Triglycerides Reference Interval Normal <150 mg/dL Borderline high 150 - 199 mg/dL High 200 - 499 mg/dL Very High > or = 500 mg/dL Performed By: #### L 500.4050, L503.6620 #### [facility] [address] [place], [place], [id number] T4 Total, Thyroxinon 024 T4 [Mass/Vol] 14.0 ug/dL High 4.8-13.9 [facility] Comment on above: Order Comment: Order Date: 12/06/23 Order Info: [id number] - LIPID Order Info: [id number] - T4 Order Info: 6-3 - TSH DR. SERRA ORDERED CMP ORDERED BTNP,LIPID,T4,TSH, Performed By: #### L 500.4050, L503.6620 #### [facility] [address] [facility] [place], [address] Thyroid Stim Hormone (TSH)on 12-23-2023 TSH 3.120 uIU/mL Normal 0.358-3.74 0 [facility] Comment on above: Order Comment: Order Date: 12/06/23 Order Info: [id number] - LIPID Order Info: 6-2 - T4 Order Info: 6-3 - TSH DR. SERRA ORDERED CMP ORDERED BTNP,LIPID,T4,TSH, Performed By: #### L 500.4050, L503.6620 #### [facility] [address] [place], [address] BNP,B-Type NATRIURETIC PEPTI Cristopher 11-11-2023 Natriuretic peptide B (Bld) [Mass/Vol] 433.4 pg/mL High 0-100 [facility] Comment on above: Performed By: #### L 500.4050, L503.6620 #### [facility] [address] [place], [address] Basic Metabolic Profile (BMP )on 11-11-2023 BUN/CRE 26.0 RATIO High 10-20 [facility] Comment on above: Performed By: #### L 500.2500 #### [facility] [address] [place], [address] CA,Total 10.1 mg/dL Normal 8.5-10.1 [facility] Comment on above: Performed By: #### L 500.2500 #### [facility] [address] [place], [address] Chloride [Moles/Vol] 103 mmol/L Normal 98-107 [facility] Comment on above: Performed By: #### L 500.2500 #### [facility] [address] [place], [address] CO2 [Moles/Vol] 25.0 mmol/L Normal 21.0-32.0 [facility] Comment on above: Performed By: #### L 500.2500 #### [facility] [address] [place], [address] Creatinine [Mass/Vol] 1.23 mg/dL High 0.55-1.[address] [facility] Comment on above: Result Comment: The validity of the calculated GFR GFRAA in patients over 70 years has not been determined. Clinical correlation is essential. Performed By: #### L 500.2500 #### [facility] [address] [place], [address] EST GFR - AA 53 mL/min Low >60 [facility] Comment on above: Result Comment: Afri can Armenian GFR Calc Performed By: #### L 500.2500 #### [facility] [address] [place], [address] GAP 9 Normal 5-15 [facility] Comment on above: Performed By: #### L 500.2500 #### [facility] [address] [place], [address] GFR/1.73 sq M.predicted among non-blacks MDRD (S/P/Bld) [Vol rate/Area] 44 mL/min/{1.73_m2} Low >60 [facility] Comment on above: Result Comment: Non- GFR Calc Performed By: #### L 500.2500 #### [facility] [address] [place], [address] Glucose [Mass/Vol] 107 mg/dL High 74-106 [facility] Comment on above: Result Comment: Fast ing Glucose result from 100 to 125 mg/dL suggests IMPAIRED HOMEOSTASIS per A.D.A. criteria. Performed By: #### L 500.2500 #### [facility] [address] [place], [address] Potassium [Moles/Vol] 4.2 mmol/L Normal 3.5-5.[address] [facility] Comment on above: Performed By: #### L 500.2500 #### [facility] [address] [place], [address] Sodium [Moles/Vol] 137 mmol/L Normal 136-145 [facility] Comment on above: Performed By: #### L 500.2500 #### [facility] [address] [place], [address] Urea nitrogen [Mass/Vol] 32 mg/dL High 7-18 [facility] Comment on above: Performed By: #### L 500.2500 #### [facility] [address] [place], [address] Chest PA and Lateralon 11-10 Chest PA and Lateral [facility] Imaging Services [address] [place] [address] Chest PA and Lateral MR#: [id number] Acct: [id number] Name: ROBERTO FERGUSON Rep #: [id number] : 1935 F 88 From: Feroz Heller MD PCP: Dr. Teagan Hall MD Status: REG CLI Study: Chest PA and Lateral Date of Exam: 11/11/23 Exam# [id number] Ordering Dr: Sharad Londono NATIONAL BUSINESS DIRECTOR NATIONAL BUSINESS DIRECTOR-C [id number] STUDY: X-RAY CHEST REASON FOR EXAM: Female, 88 years old. Re-evaluate right pleural effusion size TECHNIQUE: PA and lateral views of the chest. 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 Left internal jugular chest port which is unchanged. The lungs are clear and expanded. Small right pleural effusion which is unchanged. There is moderate cardiac enlargement. Normal mediastinum and jessica. Normal visualized pulmonary arteries. Normal visualized aortic arch and descending thoracic aorta. Normal visualized thoracic spine. Normal visualized ribs, clavicles, and shoulders. There is no demonstrated abnormality of the visualized soft tissue structures of the upper abdomen. RAD/Chest PA and Lateral IMPRESSION: No change in small right pleural effusion. Electronically Signed: Feroz Heller MD at 18:06 EDT , CC: WAYNE Londono; Dr. Teagan Hall MD Sustainable Landscape Architect: Signed Normal [facility] Echo, Limited Studyon 2023 Echo, Limited Study [facility] [address] [place] [address] Echo, Limited Study 11/08/23 1306 MR#: [id number] Acct: [id number] Name: ROBERTO FERGUSON Rep #: [id number] : 1935 88 From: Elias Arevalo MD Attending Dr: Sharad Londono, NATIONAL BUSINESS DIRECTOR-C Status: REG CLI Ordering Dr: Sharad Londono NP NATIONAL BUSINESS DIRECTOR-C Date: 11/08/23 Location: CVS Sex: F C Admitted: Version 2 Reason For Study: DYSPNEA Procedure This was a limited 2D transthoracic echocardiogram. Exam performed in department. Left Ventricle Normal LV size. D shaped septum in diastole. The left ventricular ejection fraction is 35 %. There is moderate global hypokinesis of the left ventricle. Right Ventricle ICD or pacer leads identified within the right ventricle. Mildly dilated right ventricle. Normal systolic function. Atria The left and right atria are normal. The right atrium is severely enlarged. ICD or pacer leads identified within the right atrium. Mitral Valve There is mild to moderate mitral annular calcification. Bileaflet diffuse mitral valve thickening. Tricuspid Valve Normal tricuspid valve. Pulmonary artery systolic pressure is 28 mmHg. Moderate (2+) tricuspid valve insufficiency. Aortic Valve Trisinus/trileaflet aortic valve. Mild focal aortic valve thickening. Pulmonic Valve Normal pulmonic valve. Great Vessels Normal aortic root. The pulmonary artery is normal size. Inferior vena cava collapse with sniff. The inferior vena cava is dilated. Pericardium/Pleural No pericardial effusion. MMode/2D Measurements Calculations LVIDd: 4.7 cm IVSd: 0.96 cm LAV(MOD-bp): 85.0 ml LVIDs: 4.1 cm LVPWd: 1.4 cm LAV(MOD-bp) Indexed: 52.8 ml/m2 RVDd: 3.5 cm FS: 11.7 % LAV(MOD-sp2): 110.7 ml LAV(MOD-sp4): 59.4 ml SV(MOD-sp4): 27.2 ml LVAd ap4: 22.2 cm2 LVAd ap2: 22.9 cm2 LVLd ap4: 6.2 cm LVLd ap2: 6.5 cm EDV(MOD-sp4): 67.1 ml EDV(MOD-sp2): 69.8 ml EDV(sp4-el): 67.8 ml EDV(sp2-el): 68.8 ml LVAs ap4: 16.8 cm2 LVAs ap2: 16.9 cm2 LVLs ap4: 5.7 cm LVLs ap2: 6.2 cm ESV(MOD-sp4): 39.9 ml ESV(MOD-sp2): 39.8 ml ESV(sp4-el): 42.0 ml ESV(sp2-el): 38.9 ml EF(MOD-sp4): 40.5 % EF(MOD-sp2): 43.0 % EF(sp4-el): 38.1 % SV(MOD-sp2): 30.0 ml SV(sp4-el): 25.8 ml LA A4 area: 22.2 cm2 LA dimension(2D): 4.5 cm TAPSE: 1.4 cm RA A4 area: 39.5 cm2 Doppler Measurements Calculations TR max bibiana: 246.0 cm/sec TR max P.2 mmHg ECHO/Echo, Limited Study Interpretation Summary The left ventricular ejection fraction is 35 %. Mildly dilated right ventricle. The right atrium is severely enlarged. Compared to previous study, the left ventricular systolic function is the same.. Ordering Physician: Sharad Londono Referring Physician: Sharad Londono Performed By: Joan Cassidy RCS 11/09/23 1340 Date Elias Arevalo MD CC: WAYNE Londono; Dr. Teagan Hall MD Date Dictated: 11/08/23 1306 Date Transcribed: 11/08/23 173 Sustainable Landscape Architect: Signed Normal [facility] Basic Metabolic Profile (BMP )on 10-27-2023 BUN Normal 7-18 [facility] Comment on above: Result Comment: ON D IFFERENT REQ Performed By: #### L 500.4050, L100.0100 #### [facility] [address] [place], [address] BUN/CRE Normal 10-20 [facility] Comment on above: Result Comment: ON D IFFERENT REQ Performed By: #### L 500.4050, L100.0100 #### [facility] [address] [place], [address] CA,Total Normal 8.5-10.1 [facility] Comment on above: Result Comment: ON D IFFERENT REQ Performed By: #### L 500.4050, L100.0100 #### [facility] [address] [place], [address] CL Normal 98-107 [facility] Comment on above: Result Comment: ON D IFFERENT REQ Performed By: #### L 500.4050, L100.0100 #### [facility] [address] [place], [address] CO2 Normal 21.0-32.0 [facility] Comment on above: Result Comment: ON D IFFERENT REQ Performed By: #### L 500.4050, L100.0100 #### [facility] [address] [place], [address] CREAT,SERUM Normal 0.55-1.02 [facility] Comment on above: Result Comment: ON D IFFERENT REQ Performed By: #### L 500.4050, L100.0100 #### [facility] [address] [place], [address] EST GFR Normal >60 [facility] Comment on above: Result Comment: ON D IFFERENT REQ Performed By: #### L 500.4050, L100.0100 #### [facility] [address] [place], [address] EST GFR - AA Normal >60 [facility] Comment on above: Result Comment: ON D IFFERENT REQ Performed By: #### L 500.4050, L100.0100 #### [facility] [address] [place], [address] GAP Normal 5-15 [facility] Comment on above: Result Comment: ON D IFFERENT REQ Performed By: #### L 500.4050, L100.0100 #### [facility] [address] [place], [address] GLU Normal 74-106 [facility] Comment on above: Result Comment: ON D IFFERENT REQ Performed By: #### L 500.4050, L100.0100 #### [facility] [address] [place], [address] Potassium Normal 3.5-5.1 [facility] Comment on above: Result Comment: ON D IFFERENT REQ Performed By: #### L 500.4050, L100.0100 #### [facility] [address] [place], [address] Basic Metabolic Profile (BMP) Normal 136-145 [facility] Comment on above: Result Comment: ON D IFFERENT REQ Performed By: #### L 500.4050, L100.0100 #### [facility] [address] [place], [address] CBC W/Diff, Automatedon 06-2 -2023 Absolute Lymph 1.12 X10 3/uL Normal 0.83-4.51 [facility] Comment on above: Performed By: #### L 500.2500 #### [facility] [address] [place], [address] Absolute Neut 3.6 X10 3/uL Normal 2.0-7.7 [facility] Comment on above: Performed By: #### L 500.2500 #### [facility] [address] [place], [address] Basophils/100 WBC (Bld) 0.5 % Normal 0-1 [facility] Comment on above: Performed By: #### L 500.2500 #### [facility] [address] [place], [address] Eosinophils/100 WBC (Bld) 1.1 % Normal 0-5 [facility] Comment on above: Performed By: #### L 500.2500 #### [facility] [address] [place], [address] Erythrocyte distribution width (RBC) [Ratio] 14.5 % Normal 11.6-14.6 [facility] Comment on above: Performed By: #### L 500.2500 #### [facility] [address] [place], [address] Hematocrit (Bld) [Volume fraction] 43.7 % Normal 37-47 [facility] Comment on above: Performed By: #### L 500.2500 #### [facility] [address] [place], [address] Hemoglobin (Bld) [Mass/Vol] 15.1 g/dL High 12.0-15.0 [facility] Comment on above: Performed By: #### L 500.2500 #### [facility] [address] [place], [address] IG% 0.200 Normal 0.0-0.9 [facility] Comment on above: Result Comment: IG% - Immature Granulocytes (promyelocytes, myelocytes and metamyelocytes) > 1% indicates that a LEFT SHIFT is Present. Performed By: #### L 500.2500 #### [facility] [address], [address] Lymphocytes/100 WBC (Bld) 20.5 % Normal 19-41 [facility] Comment on above: Performed By: #### L 500.2500 #### [facility] [address] [place], [address] MCH (RBC) [Entitic mass] 32.0 pg Normal 27.0-32.0 [facility] Comment on above: Performed By: #### L 500.2500 #### [facility] [address] [place], [address] MCHC (RBC) [Mass/Vol] 34.6 g/dL Normal 32-[address] [facility] Comment on above: Performed By: #### L 500.2500 #### [facility] [address] [place], [address] MCV (RBC) [Entitic vol] 92.6 fL Normal 81-99 [facility] Comment on above: Performed By: #### L 500.2500 #### [facility] [address] [place], [address] Monocytes/100 WBC (Bld) 12.4 % High 0-10 [facility] Comment on above: Performed By: #### L 500.2500 #### [facility] [address] [place], [address] Neutrophils/100 WBC (Bld) 65.3 % Normal 47-70 [facility] Comment on above: Performed By: #### L 500.2500 #### [facility] [address] [place], [address] Nucleated RBC (Bld) [#/Vol] 0 10*3/uL Normal 0-5 [facility] Comment on above: Performed By: #### L 500.2500 #### [facility] [address] [place], [address] Platelet mean volume (Bld) [Entitic vol] 11.6 fL Normal 6.2-12.0 [facility] Comment on above: Performed By: #### L 500.2500 #### [facility] [address] [place], [address] Platelets (Bld) [#/Vol] 217 10*3/uL Normal 150-450 [facility] Comment on above: Performed By: #### L 500.2500 #### [facility] [address] [place], [address] RBC (Bld) [#/Vol] 4.72 10*6/uL Normal 4.2-5.4 [facility] Comment on above: Performed By: #### L 500.2500 #### [facility] [address] [place], [address] RDW SD 49.4 fl High 35.1-43.9 [facility] Comment on above: Performed By: #### L 500.2500 #### [facility] [address] [place], [address] WBC (Bld) [#/Vol] 5.5 10*3/uL Normal 4.4-11.0 [facility] Comment on above: Performed By: #### L 500.2500 #### [facility] [address] [place], [address] Comprehensive Metabolic Prof ilon 10-27-2023 Albumin [Mass/Vol] 3.5 g/dL Normal 3.2-5.0 [facility] Comment on above: Order Comment: DR. Mani NORRIS GETS BMP ALSO Performed By: #### L 500.2500 #### [facility] [address] [place], [address] Albumin/Globulin [Mass ratio] 1.0 {ratio} Normal 0.9-2.4 [facility] Comment on above: Order Comment: DR. Mani NORRIS GETS BMP ALSO Performed By: #### L 500.2500 #### [facility] [address] [place], [address] ALK P 62 U/L Normal 45-117 [facility] Comment on above: Order Comment: DR. Mani NORRIS GETS BMP ALSO Performed By: #### L 500.2500 #### [facility] [address] [place], [address] ALT [Catalytic activity/Vol] 29 U/L Normal 13-56 [facility] Comment on above: Order Comment: DR. Mani NORRIS GETS BMP ALSO Performed By: #### L 500.2500 #### [facility] [address] [place], [address] AST [Catalytic activity/Vol] 26 U/L Normal 15-37 [facility] Comment on above: Order Comment: DR. Mani NORRIS GETS BMP ALSO Performed By: #### L 500.2500 #### [facility] [address] [place], [address] Bilirubin [Mass/Vol] 0.60 mg/dL Normal 0.20-1.00 [facility] Comment on above: Order Comment: DR. Mani NORRIS GETS BMP ALSO Result Comment: For patients on eltrombopag therapy, use of Dimension [place] TBIL is not recommended. Performed By: #### L 500.2500 #### [facility] [address] [place], [address] BUN/CRE 35.1 RATIO High 10-20 [facility] Comment on above: Order Comment: DR. Mani NORRIS GETS BMP ALSO Performed By: #### L 500.2500 #### [facility] [address] [place], [address] CA,Total 9.2 mg/dL Normal 8.5-10.1 [facility] Comment on above: Order Comment: DR. Mani NORRIS GETS BMP ALSO Performed By: #### L 500.2500 #### [facility] [address] [place], [address] Chloride [Moles/Vol] 105 mmol/L Normal 98-107 [facility] Comment on above: Order Comment: DR. Mani NORRIS GETS BMP ALSO Performed By: #### L 500.2500 #### [facility] [address] [place], [address] CO2 [Moles/Vol] 28.0 mmol/L Normal 21.0-32.0 [facility] Comment on above: Order Comment: DR. Mani NORRIS GETS BMP ALSO Performed By: #### L 500.2500 #### [facility] [address] [place], [address] Creatinine [Mass/Vol] 1.11 mg/dL High 0.55-1.[address] [facility] Comment on above: Order Comment: DR. Mani NORRIS GETS BMP ALSO Result Comment: The validity of the calculated GFR GFRAA in patients over 70 years has not been determined. Clinical correlation is essential. Performed By: #### L 500.2500 #### [facility] [address] [place], [address] EST GFR - AA 60 mL/min Normal >60 [facility] Comment on above: Order Comment: DR. Mani NORRIS GETS BMP ALSO Result Comment: Afri can Armenian GFR Calc Performed By: #### L 500.2500 #### [facility] [address] [place], [address] GAP 6 Normal 5-15 [facility] Comment on above: Order Comment: DR. Mani NORRIS GETS BMP ALSO Performed By: #### L 500.2500 #### [facility] [address] [place], [address] GFR/1.73 sq M.predicted among non-blacks MDRD (S/P/Bld) [Vol rate/Area] 49 mL/min/{1.73_m2} Low >60 [facility] Comment on above: Order Comment: DR. Mani NORRIS GETS BMP ALSO Result Comment: Non- GFR Calc Performed By: #### L 500.2500 #### [facility] [address] [place], [address] Globulin (S) [Mass/Vol] 3.6 g/dL Normal 2.2-4.2 [facility] Comment on above: Order Comment: DR. Mani NORRIS GETS BMP ALSO Performed By: #### L 500.2500 #### [facility] [address] [place], [address] Glucose [Mass/Vol] 98 mg/dL Normal 74-106 [facility] Comment on above: Order Comment: DR. Mani NORRIS GETS BMP ALSO Performed By: #### L 500.2500 #### [facility] [address] [place], [address] Potassium [Moles/Vol] 4.0 mmol/L Normal 3.5-5.[address] [facility] Comment on above: Order Comment: DR. Mani NORRIS GETS BMP ALSO Performed By: #### L 500.2500 #### [facility] [address] [place], [address] Sodium [Moles/Vol] 139 mmol/L Normal 136-145 [facility] Comment on above: Order Comment: DR. Mani NORRIS GETS BMP ALSO Performed By: #### L 500.2500 #### [facility] [address] [place], [address] T PROT 7.1 g/dL Normal 6.4-8.2 [facility] Comment on above: Order Comment: DR. Mani NORRIS GETS BMP ALSO Performed By: #### L 500.2500 #### [facility] [address] [place], [place], [address] Urea nitrogen [Mass/Vol] 39 mg/dL High 7-18 [facility] Comment on above: Order Comment: DR. Mani NORRIS GETS BMP ALSO Performed By: #### L 500.2500 #### [facility] [address] [place], [address] CA 15-3on 10-13-2023 CA 15-3 33.1 U/mL Abnormal 0.0-25.0 [facility] Comment on above: Result Comment: [employer] Electrochemiluminescence Immunoassay (ECLIA) Values obtained with different assay methods or kits cannot be used interchangeably. Results cannot be interpreted as absolute evidence of the presence or absence of malignant disease. Performed at: [facility] [address] [id number] [employer] Coins Inspector: Maxx Yi PhD, Phone: [phone] Performed By: #### L 500.4050, L100.0100 #### [facility] [address] [place], [place], [id number] [place] 27.29on 10-13-2023 CA 27.29 36.9 U/mL Normal 0.0-38.6 [facility] Comment on above: Order Comment: PLEOFELIA E ADD TO BLOOD IN LAB. THANK YOU!! Result Comment: [facility] [employer] Immunochemiluminometric Methodology (ICMA) Values obtained with different assay methods or kits cannot be used interchangeably. Results cannot be interpreted as absolute evidence of the presence or absence of malignant disease. Performed at: [facility] [address] [id number] [employer] Co[employer] Inspector: Maxx Yi PhD, Phone: [phone] Performed By: #### L 3100.5042 #### [facility] [address] [place], [address] Carcinoembryonic Antigenon 0 - CEA 3.7 ng/mL Normal 0.0-4.7 [facility] Comment on above: Result Comment: Nons mokers <3.9 Smokers <5.6 [facility] Electrochemiluminescence Immunoassay (ECLIA) Values obtained with different assay methods or kits cannot be used interchangeably. Results cannot be interpreted as absolute evidence of the presence or absence of malignant disease. Performed By: #### L 500.4050, L100.0100 #### [facility] [address] [place], [address] CBC W/Diff, Automatedon 06- 0-2023 Absolute Lymph 0.92 X10 3/uL Normal 0.83-4.51 [facility] Comment on above: Performed By: #### L 500.4050, L100.0100 #### [facility] [address] [place], [address] Absolute Neut 3.3 X10 3/uL Normal 2.0-7.7 [facility] Comment on above: Performed By: #### L 500.4050, L100.0100 #### [facility] [address] [place], [address] Basophils/100 WBC (Bld) 0.4 % Normal 0-1 [facility] Comment on above: Performed By: #### L 500.4050, L100.0100 #### [facility] [address] [place], [address] Eosinophils/100 WBC (Bld) 0.8 % Normal 0-5 [facility] Comment on above: Performed By: #### L 500.4050, L100.0100 #### [facility] [address] [place], [address] Erythrocyte distribution width (RBC) [Ratio] 14.0 % Normal 11.6-14.6 [facility] Comment on above: Performed By: #### L 500.4050, L100.0100 #### [facility] [address] [place], [address] Hematocrit (Bld) [Volume fraction] 43.8 % Normal 37-47 [facility] Comment on above: Performed By: #### L 500.4050, L100.0100 #### [facility] [address] [place], [address] Hemoglobin (Bld) [Mass/Vol] 14.4 g/dL Normal 12.0-15.0 [facility] Comment on above: Performed By: #### L 500.4050, L100.0100 #### [facility] [address] [place], [address] IG% 0.200 Normal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 [Moles/Vol] 27.0 mmol/L 21.0-32.0 [facility] Globulin (S) [Mass/Vol] 3.6 g/dL 2.2-4.2 [facility] Urea nitrogen/Creatinine [Mass ratio] 27.6 mg/mg 10-20 [facility] Laboratory - Hematology and Cell countsOrdered By: Matteo Jonas on 07-12-2023 MCH (RBC) [Entitic mass] 31.2 pg 27.0-32.0 [facility] MCHC (RBC) [Mass/Vol] 32.1 g/dL 32-[address] [facility] Nucleated RBC/100 WBC (Bld) [Ratio] 0 % 0-5 [facility] Platelet mean volume (Bld) [Entitic vol] 10.8 fL 6.2-12.0 [facility] Platelets (Bld) [#/Vol] 165 10*3/uL 150-450 [facility] No Panel InformationOrdered By: Matteo Jonas on 07-12-2023 Estimated Creatinine Clearance Calc 31.33 ml/min [facility] Estimated GFR (MDRD) Amer 57 mL/min >60 [facility] Comment on above: GFR Calc Estimated GFR (MDRD) Non-Af Amer 47 mL/min >60 [facility] Comment on above: Non- GFR Calc RBC Auto (Bld) [#/Vol]Ordere d By: Matteo Jonas on 07-12-2023 RBC (Bld) [#/Vol] 4.30 10*6/uL 4.2-5.4 [facility] Serum or plasma calcium criss urement (mass/volume)Ordered By: Matteo Jonas on 07-12-2023 Calcium [Mass/Vol] 9.3 mg/dL 8.5-10.1 [facility] Serum or plasma creatinine m easurement (mass/volume)Ordered By: Matteo Jonas on 07-12-2023 Creatinine [Mass/Vol] 1.16 mg/dL 0.55-1.[address] [facility] Comment on above: The validity of the calculated GFR & GFRAA in patients over 70 years has not been determined. Clinical correlation is essential. 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 Normal [facility] 36on 07-05-[address] chest c ompleted 07/05/23 from [facility]. Imaging report in media. Normal [facility] 36on 06-30-2023 36 Navigator contacted the office of radiation oncologist, Dr. Matteo Jonas in [place]. Confirmed that Ms. Ferguson is scheduled for CT chest 07/05/2023 at [facility]. Navigator will obtain outside images for review. Spoke with patient by phone and arranged appointment with Dr. Gonzalez by phone to review images and results. Patient is aware that if there are significant changes or more urgent follow-up is needed, we will contact her to reschedule sooner. Normal [facility] Absolute lymphocyte countOrd ered By: Leena Serra on 06-23-2023 Lymphocytes Auto (Unsp spec) [#/Vol] 0.74 10*3/uL 0.83-4.51 [facility] Automated lymphocyte count a s percentage of total leukocytesOrdered By: Leena Serra on 06-23-2023 Lymphocytes/100 WBC Auto (Unsp spec) 12.8 % 19-41 [facility] Basophil percentageOrdered B y: Leena Serra on 06-23-2023 Basophils/100 WBC (Bld) 0.3 % 0-1 [facility] Bilirubin [Mass/Vol] 0.60 mg/dL 0.20-1.00 [facility] Comment on above: For patients on eltr ombopag therapy, use of Dimension [place] TBIL is not recommended. Chloride [Moles/Vol] 105 mmol/L 98-107 [facility] Eosinophils/100 WBC (Bld) 0.3 % 0-5 [facility] Glucose [Mass/Vol] 133 mg/dL 74-106 [facility] Comment on above: Fasting Glucose resu lt greater than or equal to 126 mg/dL suggests DIABETES MELLITUS per A.D.A. criteria. Hemoglobin (Bld) [Mass/Vol] 13.5 g/dL 12.0-15.0 [facility] Monocytes/100 WBC (Bld) 8.3 % 0-10 [facility] Neutrophils (Bld) [#/Vol] 4.5 10*3/uL 2.0-7.7 [facility] Neutrophils/100 WBC (Bld) 78.1 % 47-70 [facility] Potassium [Moles/Vol] 3.8 mmol/L 3.5-5.[address] [facility] Protein [Mass/Vol] 6.9 g/dL 6.4-8.2 [facility] Sodium [Moles/Vol] 137 mmol/L 136-145 [facility] WBC (Bld) [#/Vol] 5.8 10*3/uL 4.4-11.0 [facility] Determination of erythrocyte mean corpuscular volume (MCV)Ordered By: Leena Serra on 06-23-2023 MCV (RBC) [Entitic vol] 95.3 fL 81-99 [facility] Erythrocyte distribution wid th ratioOrdered By: Leena Serra on 06-23-2023 Erythrocyte distribution width (RBC) [Ratio] 14.1 % 11.6-14.6 [facility] Erythrocyte distribution wid th standard deviationOrdered By: Leena Serra on 06-23-2023 Erythrocyte distribution width (RBC) [Entitic vol] 49.1 fL 35.1-43.9 [facility] Hematocrit Auto (Bld) [Volum e fraction]Ordered By: Leena Serra on 06-23-2023 Hematocrit (Bld) [Volume fraction] 40.8 % 37-47 [facility] Immature granulocytes/100 WB C Auto (Bld)Ordered By: [facility] on 06-23-2023 Immature granulocytes/100 WBC (Bld) 0.200 % 0.0-0.9 [facility] Comment on above: IG% - Immature Granu locytes (promyelocytes, myelocytes and metamyelocytes) > 1% indicates that a LEFT SHIFT is Present. Laboratory - Chemistry and C hemistry - challengeOrdered By: Leenajulia Serra on 06-23-2023 Albumin/Globulin [Mass ratio] 1.0 {ratio} 0.9-2.4 [facility] ALP [Catalytic activity/Vol] 74 U/L 45-117 [facility] ALT [Catalytic activity/Vol] 24 U/L 13-56 [facility] CO2 [Moles/Vol] 26.0 mmol/L 21.0-32.0 [facility] Globulin (S) [Mass/Vol] 3.4 g/dL 2.2-4.2 [facility] Urea nitrogen/Creatinine [Mass ratio] 29.7 mg/mg 10-20 [facility] Laboratory - Hematology and Cell countsOrdered By: Leenajulia Serra on 06-23-2023 MCH (RBC) [Entitic mass] 31.5 pg 27.0-32.0 [facility] MCHC (RBC) [Mass/Vol] 33.1 g/dL 32-[address] [facility] Nucleated RBC/100 WBC (Bld) [Ratio] 0 % 0-5 [facility] Platelet mean volume (Bld) [Entitic vol] 10.6 fL 6.2-12.0 [facility] Platelets (Bld) [#/Vol] 168 10*3/uL 150-450 [facility] No Panel InformationOrdered By: Leena Serra on 06-23-2023 Estimated Creatinine Clearance Calc 30.74 ml/min [facility] Estimated GFR (MDRD) Amer 60 mL/min >60 [facility] Comment on above: GFR Calc Estimated GFR (MDRD) Non-Af Amer 49 mL/min >60 [facility] Comment on above: Non- GFR Calc RBC Auto (Bld) [#/Vol]Ordere d By: Leena Serra on 06-23-2023 RBC (Bld) [#/Vol] 4.28 10*6/uL 4.2-5.4 [facility] Serum or plasma calcium criss urement (mass/volume)Ordered By: Leena Serra on 06-23-2023 Calcium [Mass/Vol] 9.0 mg/dL 8.5-10.1 [facility] Serum or plasma creatinine m easurement (mass/volume)Ordered By: Leena Serra on 06-23-2023 Creatinine [Mass/Vol] 1.11 mg/dL 0.55-1.[address] [facility] Comment on above: The validity of the calculated GFR & GFRAA in patients over 70 years has not been determined. Clinical correlation is essential. Serum or plasma thyroid stim ulating hormone (TSH) measurement (units/volume)Ordered By: Teagan Hall on 06-23-2023 TSH Qn 0.93 uIU/mL 0.358-3.74 [facility] Serum or plasma urea nitroge n measurement (mass/volume)Ordered By: Leena Serra on 06-23-2023 Urea nitrogen [Mass/Vol] 33 mg/dL 7-18 [facility] Thin prep Papanicolaou smear with manual screeningOrdered By: Leena Serra on 06-23-2023 Thin prep Papanicolaou smear with manual screening 3.5 g/dL 3.2-5.0 [facility] Thin prep Papanicolaou smear with manual screening 23 U/L 15-37 [facility] Thin prep Papanicolaou smear with manual screening 6 5-15 [facility] Basophil percentageOrdered B y: Mary Zapien on 01-02-2024 Chloride [Moles/Vol] 101 mmol/L 98-107 [facility] Glucose [Mass/Vol] 109 mg/dL 74-106 [facility] Comment on above: Fasting Glucose resu lt from 100 to 125 mg/dL suggests IMPAIRED HOMEOSTASIS per A.D.A. criteria. Potassium [Moles/Vol] 3.7 mmol/L 3.5-5.[address] [facility] Sodium [Moles/Vol] 136 mmol/L 136-145 [facility] Laboratory - Chemistry and C hemistry - challengeOrdered By: Mary Zapien on 05-04-2023 CO2 [Moles/Vol] 29.0 mmol/L 21.0-32.0 [facility] Urea nitrogen/Creatinine [Mass ratio] 35.5 mg/mg 10-20 [facility] No Panel InformationOrdered By: Mary aZpien on 05-04-2023 Estimated GFR (MDRD) Amer 62 mL/min >60 [facility] Comment on above: GFR Calc Estimated GFR (MDRD) Non-Af Amer 52 mL/min >60 [facility] Comment on above: Non- GFR Calc Serum or plasma calcium criss urement (mass/volume)Ordered By: Mary Zapien on 05-04-2023 Calcium [Mass/Vol] 9.4 mg/dL 8.5-10.1 [facility] Serum or plasma creatinine m easurement (mass/volume)Ordered By: Mary Zapien on 05-04-2023 Creatinine [Mass/Vol] 1.07 mg/dL 0.55-1.[address] [facility] Comment on above: The validity of the calculated GFR & GFRAA in patients over 70 years has not been determined. Clinical correlation is essential. Serum or plasma urea nitroge n measurement (mass/volume)Ordered By: Mary Zapien on 05-04-2023 Urea nitrogen [Mass/Vol] 38 mg/dL 7-18 [facility] Thin prep Papanicolaou smear with manual screeningOrdered By: Mary Zapien on 05-04-2023 Thin prep Papanicolaou smear with manual screening 6 5-15 [facility] Basophil percentageOrdered B y: Holli Gaona on 04-07-2023 Basophil percentage 7.3 g/dL 6.4-8.2 [facility] Basophil percentage 294 U/L 84-246 [facility] LDH [Catalytic activity/Vol] 294 U/L 84-246 [facility] Protein [Mass/Vol] 7.3 g/dL 6.4-8.2 [facility] Laboratory - Chemistry and C hemistry - challengeOrdered By: Holli Gaona on 04-07-2023 Globulin (S) [Mass/Vol] 3.5 g/dL 2.2-4.2 [facility] No Panel InformationOrdered By: Holli Gaona on 04-07-2023 3.5 g/dL 2.2-4.2 [facility] Serum or plasma albumin/glob ulin mass ratioOrdered By: Holli Gaona on 04-07-2023 Albumin/Globulin [Mass ratio] 1.1 {ratio} 0.9-2.4 [facility] Absolute lymphocyte countOrd ered By: Mary Zapien on 03-29-2023 Lymphocytes Auto (Unsp spec) [#/Vol] 1.08 10*3/uL 0.83-4.51 [facility] Basophil percentageOrdered B y: Mary Zapien on 03-29-2023 Basophil percentage 88 mg/dL 74-106 [facility] Basophil percentage 7.2 g/dL 6.4-8.2 [facility] Basophil percentage 0.70 mg/dL 0.20-1.00 [facility] Basophil percentage 137 mmol/L 136-145 [facility] Basophil percentage 3.6 mmol/L 3.5-5.1 [facility] Basophil percentage 103 mmol/L 98-107 [facility] Basophils (Bld) [#/Vol] 5.1 10*3/uL 4.4-11.0 [facility] Basophils (Bld) [#/Vol] 3.3 10*3/uL 2.0-7.7 [facility] Basophils/100 WBC (Bld) 65.3 % 47-70 [facility] Basophils/100 WBC (Bld) 1.0 % 0-5 [facility] Basophils/100 WBC (Bld) 0.8 % 0-1 [facility] Bilirubin [Mass/Vol] 0.70 mg/dL 0.20-1.00 [facility] Comment on above: For patients on eltr ombopag therapy, use of Dimension [place] TBIL is not recommended. Chloride [Moles/Vol] 103 mmol/L 98-107 [facility] Eosinophils/100 WBC (Bld) 1.0 % 0-5 [facility] Glucose [Mass/Vol] 88 mg/dL 74-106 [facility] Neutrophils (Bld) [#/Vol] 3.3 10*3/uL 2.0-7.7 [facility] Neutrophils/100 WBC (Bld) 65.3 % 47-70 [facility] Potassium [Moles/Vol] 3.6 mmol/L 3.5-5.[address] [facility] Protein [Mass/Vol] 7.2 g/dL 6.4-8.2 [facility] Sodium [Moles/Vol] 137 mmol/L 136-145 [facility] WBC (Bld) [#/Vol] 5.1 10*3/uL 4.4-11.0 [facility] Blood erythrocytes count (nu mber/volume)Ordered By: Mary Zapien on 03-29-2023 RBC (Bld) [#/Vol] 4.91 10*6/uL 4.2-5.4 [facility] Blood hemoglobin measurement (mass/volume)Ordered By: Mary Zapien on 03-29-2023 Hemoglobin (Bld) [Mass/Vol] 15.1 g/dL 12.0-15.0 [facility] Blood lymphocytes/100 leukoc ytesOrdered By: Mary Zapien on 03-29-2023 Lymphocytes/100 WBC (Bld) 21.3 % 19-41 [facility] Blood monocytes/100 leukocyt esOrdered By: Mary Zapien on 03-29-2023 Monocytes/100 WBC (Bld) 11.2 % 0-10 [facility] Blood platelet mean volumeOr dered By: Mary Zapien on 03-29-2023 Platelet mean volume (Bld) [Entitic vol] 10.1 fL 6.2-12.0 [facility] Determination of erythrocyte mean corpuscular volume (MCV)Ordered By: Mary Zapien on 03-29-2023 MCV (RBC) [Entitic vol] 95.9 fL 81-99 [facility] Hematocrit Auto (Bld) [Volum e fraction]Ordered By: Mary Zapien on 03-29-2023 Hematocrit (Bld) [Volume fraction] 47.1 % 37-47 [facility] Laboratory - Chemistry and C hemistry - challengeOrdered By: Mary Zapien on 03-29-2023 ALP [Catalytic activity/Vol] 69 U/L 45-117 [facility] ALT [Catalytic activity/Vol] 28 U/L 13-56 [facility] CO2 [Moles/Vol] 27.0 mmol/L 21.0-32.0 [facility] Globulin (S) [Mass/Vol] 3.8 g/dL 2.2-4.2 [facility] Urea nitrogen/Creatinine [Mass ratio] 19.2 mg/mg 10-20 [facility] Laboratory - Hematology and Cell countsOrdered By: Mary Zapien on 03-29-2023 Erythrocyte distribution width (RBC) [Entitic vol] 52.9 fL 35.1-43.9 [facility] Erythrocyte distribution width (RBC) [Ratio] 15.2 % 11.6-14.6 [facility] Immature granulocytes/100 WBC (Bld) 0.400 % 0.0-0.9 [facility] Comment on above: IG% - Immature Granu locytes (promyelocytes, myelocytes and metamyelocytes) > 1% indicates that a LEFT SHIFT is Present. MCH (RBC) [Entitic mass] 30.8 pg 27.0-32.0 [facility] Nucleated RBC/100 WBC (Bld) [Ratio] 0 % 0-5 [facility] MCHC Auto (RBC) [Mass/Vol]Or dered By: Mary Zapien on 03-29-2023 MCHC (RBC) [Mass/Vol] 32.1 g/dL 32-[address] [facility] No Panel InformationOrdered By: Mary Zapien on 03-29-2023 Estimated GFR (MDRD) Amer 65 mL/min >60 [facility] Comment on above: GFR Calc Estimated GFR (MDRD) Non-Af Amer 53 mL/min >60 [facility] Comment on above: Non- GFR Calc Thyroid Stimulating Hormone (TSH) 4.82 uIU/mL 0.358-3.74 [facility] 30.8 pg 27.0-32.0 [facility] 15.2 % 11.6-14.6 [facility] 52.9 fl 35.1-43.9 [facility] 0.400 % 0.0-0.9 [facility] 0 % 0-5 [facility] 53 mL/min >60 [facility] 65 mL/min >60 [facility] 19.2 RATIO 10-20 [facility] 3.8 g/dL 2.2-4.2 [facility] 69 U/L 45-117 [facility] 28 U/L 13-56 [facility] 27.0 mmol/L 21.0-32.0 [facility] 4.82 uIU/mL 0.358-3.74 [facility] Platelets bldOrdered By: Kerwin Zapien on 03-29-2023 Platelets (Bld) [#/Vol] 200 10*3/uL 150-450 [facility] Serum or plasma albumin criss urement (mass/volume)Ordered By: Mary Zapien on 03-29-2023 Albumin [Mass/Vol] 3.4 g/dL 3.2-5.0 [facility] Serum or plasma albumin/glob ulin mass ratioOrdered By: Mary Zapien on 03-29-2023 Albumin/Globulin [Mass ratio] 0.9 {ratio} 0.9-2.4 [facility] Serum or plasma calcium criss urement (mass/volume)Ordered By: Mary Zapien on 03-29-2023 Calcium [Mass/Vol] 9.2 mg/dL 8.5-10.1 [facility] Serum or plasma creatinine m easurement (mass/volume)Ordered By: Mary Zapien on 03-29-2023 Creatinine [Mass/Vol] 1.04 mg/dL 0.55-1.[address] [facility] Comment on above: The validity of the calculated GFR & GFRAA in patients over 70 years has not been determined. Clinical correlation is essential. Serum or plasma urea nitroge n measurement (mass/volume)Ordered By: Mary Zapien on 03-29-2023 Urea nitrogen [Mass/Vol] 20 mg/dL 7-18 [facility] Thin prep Papanicolaou smear with manual screeningOrdered By: Mary Zapien on 03-29-2023 Thin prep Papanicolaou smear with manual screening 23 U/L 15-37 [facility] Thin prep Papanicolaou smear with manual screening 7 5-15 [facility] Absolute lymphocyte countOrd ered By: Matteo Anderson on 02-24-2023 Lymphocytes Auto (Unsp spec) [#/Vol] 1.69 10*3/uL 0.83-4.51 [facility] Basophil percentageOrdered B y: Matteo Anderson on 02-24-2023 Basophil percentage 94 mg/dL 74-106 [facility] Basophil percentage 137 mmol/L 136-145 [facility] Basophil percentage 4.3 mmol/L 3.5-5.1 [facility] Basophil percentage 107 mmol/L 98-107 [facility] Chloride [Moles/Vol] 107 mmol/L 98-107 [facility] Glucose [Mass/Vol] 94 mg/dL 74-106 [facility] Potassium [Moles/Vol] 4.3 mmol/L 3.5-5.[address] [facility] Comment on above: Slight Hemolysis, Re sult may be falsely increased. Sodium [Moles/Vol] 137 mmol/L 136-145 [facility] Basophils (Bld) [#/Vol] 4.1 10*3/uL 4.4-11.0 [facility] Basophils (Bld) [#/Vol] 1.7 10*3/uL 2.0-7.7 [facility] Basophils/100 WBC (Bld) 42.1 % 47-70 [facility] Basophils/100 WBC (Bld) 1.0 % 0-5 [facility] Basophils/100 WBC (Bld) 0.5 % 0-1 [facility] Eosinophils/100 WBC (Bld) 1.0 % 0-5 [facility] Neutrophils (Bld) [#/Vol] 1.7 10*3/uL 2.0-7.7 [facility] Neutrophils/100 WBC (Bld) 42.1 % 47-70 [facility] WBC (Bld) [#/Vol] 4.1 10*3/uL 4.4-11.0 [facility] Blood erythrocytes count (nu mber/volume)Ordered By: Matteo Anderson on 02-24-2023 RBC (Bld) [#/Vol] 4.42 10*6/uL 4.2-5.4 [facility] Blood hemoglobin measurement (mass/volume)Ordered By: Matteo Anderson on 02-24-2023 Hemoglobin (Bld) [Mass/Vol] 14.0 g/dL 12.0-15.0 [facility] Blood lymphocytes/100 leukoc ytesOrdered By: [facility] on [facility]23 Lymphocytes/100 WBC (Bld) 41.1 % 19-41 [facility] Blood monocytes/100 leukocyt esOrdered By: [facility] on 02-24-2023 Monocytes/100 WBC (Bld) 15.1 % 0-10 [facility] Blood platelet mean volumeOr dered By: [facility] on 02-24-2023 Platelet mean volume (Bld) [Entitic vol] 10.1 fL 6.2-12.0 [facility] Determination of erythrocyte mean corpuscular volume (MCV)Ordered By: [facility] on 02-24-2023 MCV (RBC) [Entitic vol] 96.2 fL 81-99 [facility] Hematocrit Auto (Bld) [Volum e fraction]Ordered By: [facility] on 02-24-2023 Hematocrit (Bld) [Volume fraction] 42.5 % 37-47 [facility] Laboratory - Chemistry and C hemistry - challengeOrdered By: [facility] on 02-24-2023 CO2 [Moles/Vol] 26.0 mmol/L 21.0-32.0 [facility] Magnesium [Mass/Vol] 1.8 mg/dL 1.6-2.6 [facility] Comment on above: Slight Hemolysis, Re sult may be falsely increased. Urea nitrogen/Creatinine [Mass ratio] 23.1 mg/mg 10-20 [facility] Laboratory - Hematology and Cell countsOrdered By: [facility] on 02-24-2023 Erythrocyte distribution width (RBC) [Entitic vol] 48.5 fL 35.1-43.9 [facility] Erythrocyte distribution width (RBC) [Ratio] 13.7 % 11.6-14.6 [facility] Immature granulocytes/100 WBC (Bld) 0.200 % 0.0-0.9 [facility] Comment on above: IG% - Immature Granu locytes (promyelocytes, myelocytes and metamyelocytes) > 1% indicates that a LEFT SHIFT is Present. MCH (RBC) [Entitic mass] 31.7 pg 27.0-32.0 [facility] Nucleated RBC/100 WBC (Bld) [Ratio] 0 % 0-5 [facility] MCHC Auto (RBC) [Mass/Vol]Or dered By: Matteo Anderson on 02-24-2023 MCHC (RBC) [Mass/Vol] 32.9 g/dL 32-[address] [facility] No Panel InformationOrdered By: Matteo Anderson on 02-24-2023 Estimated Creatinine Clearance Calc 36.70 ml/min [facility] Estimated GFR (MDRD) Amer 68 mL/min >60 [facility] Comment on above: GFR Calc Estimated GFR (MDRD) Non-Af Amer 56 mL/min >60 [facility] Comment on above: Non- GFR Calc Thyroid Stimulating Hormone (TSH) 5.58 uIU/mL 0.358-3.74 [facility] 56 mL/min >60 [facility] 68 mL/min >60 [facility] 36.70 ml/min [facility] 23.1 RATIO 10-20 [facility] 1.8 mg/dL 1.6-2.6 [facility] 26.0 mmol/L 21.0-32.0 [facility] 5.58 uIU/mL 0.358-3.74 [facility] 31.7 pg 27.0-32.0 [facility] 13.7 % 11.6-14.6 [facility] 48.5 fl 35.1-43.9 [facility] 0.200 % 0.0-0.9 [facility] 0 % 0-5 [facility] Platelets bldOrdered By: Victorino Anderson on 02-24-2023 Platelets (Bld) [#/Vol] 167 10*3/uL 150-450 [facility] Serum or plasma calcium criss urement (mass/volume)Ordered By: Matteo Anderson on 02-24-2023 Calcium [Mass/Vol] 8.2 mg/dL 8.5-10.1 [facility] Serum or plasma creatinine m easurement (mass/volume)Ordered By: Matteo Anderson on 02-24-2023 Creatinine [Mass/Vol] 0.99 mg/dL 0.55-1.[address] [facility] Comment on above: The validity of the calculated GFR & GFRAA in patients over 70 years has not been determined. Clinical correlation is essential. Serum or plasma urea nitroge n measurement (mass/volume)Ordered By: Matteo Anderson on 02-24-2023 Urea nitrogen [Mass/Vol] 23 mg/dL 7-18 [facility] Thin prep Papanicolaou smear with manual screeningOrdered By: Matteo Anderson on 02-24-2023 Thin prep Papanicolaou smear with manual screening 4 5-15 [facility] Absolute lymphocyte countOrd ered By: Seth Garcia on 02-23-2023 Lymphocytes Auto (Unsp spec) [#/Vol] 1.60 10*3/uL 0.83-4.51 [facility] Basophil percentageOrdered B y: Seth Garcia on 02-23-2023 Basophil percentage 156 mg/dL 74-106 [facility] Basophil percentage 129 mmol/L 136-145 [facility] Basophil percentage 5.0 mmol/L 3.5-5.1 [facility] Basophil percentage 96 mmol/L 98-107 [facility] Basophils (Bld) [#/Vol] 8.0 10*3/uL 4.4-11.0 [facility] Basophils (Bld) [#/Vol] 5.5 10*3/uL 2.0-7.7 [facility] Basophils/100 WBC (Bld) 68.3 % 47-70 [facility] Basophils/100 WBC (Bld) 0.4 % 0-5 [facility] Basophils/100 WBC (Bld) 0.5 % 0-1 [facility] Blood erythrocytes count (nu mber/volume)Ordered By: Seth Garcia on 02-23-2023 RBC (Bld) [#/Vol] 5.03 10*6/uL 4.2-5.4 [facility] Blood hemoglobin measurement (mass/volume)Ordered By: Seth Garcia on 02-23-2023 Hemoglobin (Bld) [Mass/Vol] 15.8 g/dL 12.0-15.0 [facility] Blood lymphocytes/100 leukoc ytesOrdered By: Seth Garcia on 02-23-2023 Lymphocytes/100 WBC (Bld) 20.1 % 19-41 [facility] Blood monocytes/100 leukocyt esOrdered By: Seth Garcia on 02-23-2023 Monocytes/100 WBC (Bld) 10.2 % 0-10 [facility] Blood platelet mean volumeOr dered By: Seth Garcia on 02-23-2023 Platelet mean volume (Bld) [Entitic vol] 10.4 fL 6.2-12.0 [facility] Determination of erythrocyte mean corpuscular volume (MCV)Ordered By: Seth Garcia on 02-23-2023 MCV (RBC) [Entitic vol] 95.8 fL 81-99 [facility] Hematocrit Auto (Bld) [Volum e fraction]Ordered By: Seth Garcia on 02-23-2023 Hematocrit (Bld) [Volume fraction] 48.2 % 37-47 [facility] MCHC Auto (RBC) [Mass/Vol]Or dered By: Seth Garcia on 02-23-2023 MCHC (RBC) [Mass/Vol] 32.8 g/dL 32-[address] [facility] No Panel InformationOrdered By: Seth Garcia on 02-23-2023 Troponin I High Sensitivity 40 pg/mL 3.0-54.0 [facility] Comment on above: Please Note: New Sarah t Units and Gender Specific Reference Ranges. For more information see Policy Stat Procedure [place] High Sensitivity Troponin (TNIH) and attachments. 31.4 pg 27.0-32.0 [facility] 13.6 % 11.6-14.6 [facility] 48.4 fl 35.1-43.9 [facility] 0.500 % 0.0-0.9 [facility] 0 % 0-5 [facility] 31 mL/min >60 [facility] 37 mL/min >60 [facility] 20.75 ml/min [facility] 20.1 RATIO 10-20 [facility] 40 pg/mL 3.0-54.0 [facility] 23.0 mmol/L 21.0-32.0 [facility] Platelets bldOrdered By: Joyce lemonconrad Radha on 02-23-2023 Platelets (Bld) [#/Vol] 239 10*3/uL 150-450 [facility] Serum or plasma calcium criss urement (mass/volume)Ordered By: Seth Garcia on 02-23-2023 Calcium [Mass/Vol] 9.6 mg/dL 8.5-10.1 [facility] Serum or plasma creatinine m easurement (mass/volume)Ordered By: Seth Garcia on 02-23-2023 Creatinine [Mass/Vol] 1.69 mg/dL 0.55-1.[address] [facility] Serum or plasma urea nitroge n measurement (mass/volume)Ordered By: Seth Garcia on 02-23-2023 Urea nitrogen [Mass/Vol] 34 mg/dL 11-17 [facility] Thin prep Papanicolaou smear with manual screeningOrdered By: Seth Garcia on 02-23-2023 Thin prep Papanicolaou smear with manual screening 10 -15 [facility] Qualitative QuantiFERON-TB g old in tube testOrdered By: Leena Serra on 02-17-2023 M. tuberculosis tuberculin stim IFN-g Ql (Bld) 0.05 IU/mL . [facility] Thin prep Papanicolaou smear with manual screeningOrdered By: Leena Serra on 02-17-2023 Thin prep Papanicolaou smear with manual screening Comment . [facility] Comment on above: QuantiFERON-TB Gold Plus is a qualitative indirect test forM tuberculosis infection (including disease) and isintended for use in conjunction with risk assessment,radiography, and other medical and diagnostic evaluations.The QuantiFERON-TB Gold Plus result is determined bysubtracting the Nil value from either TB antigen (Ag)value. The Mitogen tube serves as a control for the test. Thin prep Papanicolaou smear with manual screening 0.05 IU/mL . [facility] Thin prep Papanicolaou smear with manual screening 0.03 IU/mL . [facility] Thin prep Papanicolaou smear with manual screening > 10.00 IU/mL . [facility] Thin prep Papanicolaou smear with manual screening Negative Negative [facility] Comment on above: No response to M tub erculosis antigens detected.Infection with M tuberculosis is unlikely, but high riskindividuals should be considered for additional testing(ATS/IDSA/CDC Clinical Practice Guidelines, 2017). Thereference range is an Antigen minus Nil result of <0.35IU/mL.The specimen received for QuantiFERON testing was incubatedby the ordering institution. Specific procedures outlinedin our Directory of Services and in the package insert forthe QuantiFERON Gold (In Tube) test must be followed toenable for proper stimulation of cells for the productionof interferon gamma. Chemiluminescence immunoassaymethodologyPerformed at: [facility] [address] [id number] Director: Maxx Yi PhD, Phone: [phone] Absolute lymphocyte countOrd ered By: Miriam Reyes on 01-27-2023 Lymphocytes Auto (Unsp spec) [#/Vol] 1.13 10*3/uL 0.83-4.51 [facility] Basophil percentageOrdered B y: Miriam Reyes on 01-27-2023 Basophil percentage 141 mg/dL 74-106 [facility] Basophil percentage 131 mmol/L 136-145 [facility] Basophil percentage 3.9 mmol/L 3.5-5.1 [facility] Basophil percentage 101 mmol/L 98-107 [facility]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 [Entitic vol] 49.4 fL 35.1-43.9 [facility] Erythrocyte distribution width (RBC) [Ratio] 13.8 % 11.6-14.6 [facility] Immature granulocytes/100 WBC (Bld) 0.400 % 0.0-0.9 [facility] Comment on above: IG% - Immature Granu locytes (promyelocytes, myelocytes and metamyelocytes) > 1% indicates that a LEFT SHIFT is Present. MCH (RBC) [Entitic mass] 32.3 pg 27.0-32.0 [facility] Nucleated RBC/100 WBC (Bld) [Ratio] 0 % 0-5 [facility] MCHC Auto (RBC) [Mass/Vol]Or dered By: Saravanan Monzon on 01-04-2023 MCHC (RBC) [Mass/Vol] 32.8 g/dL 32-[address] [facility] No Panel InformationOrdered By: Saravanan Monzon on 01-04-2023 Estimated Creatinine Clearance Calc 35.83 ml/min [facility] Estimated GFR (MDRD) Amer 102 mL/min >60 [facility] Comment on above: GFR Calc Estimated GFR (MDRD) Non-Af Amer 84 mL/min >60 [facility] Comment on above: Non- GFR Calc 32.3 pg 27.0-32.0 [facility] 13.8 % 11.6-14.6 [facility] 49.4 fl 35.1-43.9 [facility] 0.400 % 0.0-0.9 [facility] 0 % 0-5 [facility] 84 mL/min >60 [facility] 102 mL/min >60 [facility] 35.83 ml/min [facility] 27.1 RATIO 10-20 [facility] 20.0 mmol/L 21.0-32.0 [facility] Platelets bldOrdered By: Yousif Monzon on 01-04-2023 Platelets (Bld) [#/Vol] 161 10*3/uL 150-450 [facility] Serum or plasma calcium criss urement (mass/volume)Ordered By: Saravanan Monzon on 01-04-2023 Calcium [Mass/Vol] 7.9 mg/dL 8.5-10.1 [facility] Serum or plasma creatinine m easurement (mass/volume)Ordered By: Saravanan Monzon on 01-04-2023 Creatinine [Mass/Vol] 0.70 mg/dL 0.55-1.[address] [facility] Comment on above: The validity of the calculated GFR & GFRAA in patients over 70 years has not been determined. Clinical correlation is essential. Serum or plasma urea nitroge n measurement (mass/volume)Ordered By: Saravanan Monzon on 01-04-2023 Urea nitrogen [Mass/Vol] 19 mg/dL 7-18 [facility] Thin prep Papanicolaou smear with manual screeningOrdered By: Saravanan Monzon on 01-04-2023 Thin prep Papanicolaou smear with manual screening 7 5-15 [facility] Absolute lymphocyte countOrd ered By: Henrry Cano on 01-03-2023 Lymphocytes Auto (Unsp spec) [#/Vol] 1.65 10*3/uL 0.83-4.51 [facility] Basophil percentageOrdered B y: Henrry Cano on 01-03-2023 Basophils/100 WBC (Bld) 0.5 % 0-1 [facility] Chloride [Moles/Vol] 108 mmol/L 98-107 [facility] Eosinophils/100 WBC (Bld) 1.2 % 0-5 [facility] Glucose [Mass/Vol] 135 mg/dL 74-106 [facility] Comment on above: Fasting Glucose resu lt greater than or equal to 126 mg/dL suggests DIABETES MELLITUS per A.D.A. criteria. Neutrophils (Bld) [#/Vol] 2.0 10*3/uL 2.0-7.7 [facility] Neutrophils/100 WBC (Bld) 46.9 % 47-70 [facility] Potassium [Moles/Vol] 4.2 mmol/L 3.5-5.[address] [facility] Comment on above: Slight Hemolysis, Re sult may be falsely increased. Sodium [Moles/Vol] 138 mmol/L 136-145 [facility] WBC (Bld) [#/Vol] 4.3 10*3/uL 4.4-11.0 [facility] Blood erythrocytes count (nu mber/volume)Ordered By: Henrry Cano on 01-03-2023 RBC (Bld) [#/Vol] 4.15 10*6/uL 4.2-5.4 [facility] Blood hemoglobin measurement (mass/volume)Ordered By: Henrry Cano on 01-03-2023 Hemoglobin (Bld) [Mass/Vol] 13.2 g/dL 12.0-15.0 [facility] Blood lymphocytes/100 leukoc ytesOrdered By: Henrry Cano on 01-03-2023 Lymphocytes/100 WBC (Bld) 38.5 % 19-41 [facility] Blood monocytes/100 leukocyt esOrdered By: Henrry Cano on 01-03-2023 Monocytes/100 WBC (Bld) 12.4 % 0-10 [facility] Blood platelet mean volumeOr dered By: Henrry Cano on 01-03-2023 Platelet mean volume (Bld) [Entitic vol] 10.7 fL 6.2-12.0 [facility] Determination of erythrocyte mean corpuscular volume (MCV)Ordered By: Hernry Cano on 01-03-2023 MCV (RBC) [Entitic vol] 94.9 fL 81-99 [facility] Hematocrit Auto (Bld) [Volum e fraction]Ordered By: Henrry Cano on 01-03-2023 Hematocrit (Bld) [Volume fraction] 39.4 % 37-47 [facility] Laboratory - Chemistry and C hemistry - challengeOrdered By: Henrry Cano on 09-03-2023 CO2 [Moles/Vol] 23.0 mmol/L 21.0-32.0 [facility] Natriuretic peptide B (Bld) [Mass/Vol] 445.6 pg/mL 0-100 [facility] Urea nitrogen/Creatinine [Mass ratio] 21.5 mg/mg 10-20 [facility] Laboratory - Hematology and Cell countsOrdered By: Henrry Cano on 01-03-2023 Erythrocyte distribution width (RBC) [Entitic vol] 46.8 fL 35.1-43.9 [facility] Erythrocyte distribution width (RBC) [Ratio] 13.4 % 11.6-14.6 [facility] Immature granulocytes/100 WBC (Bld) 0.500 % 0.0-0.9 [facility] Comment on above: IG% - Immature Granu locytes (promyelocytes, myelocytes and metamyelocytes) > 1% indicates that a LEFT SHIFT is Present. MCH (RBC) [Entitic mass] 31.8 pg 27.0-32.0 [facility] Nucleated RBC/100 WBC (Bld) [Ratio] 0 % 0-5 [facility] MCHC Auto (RBC) [Mass/Vol]Or dered By: Henrry Cano on 01-03-2023 MCHC (RBC) [Mass/Vol] 33.5 g/dL 32-[address] [facility] No Panel InformationOrdered By: Saravanan Monzon on 01-03-2023 Troponin I High Sensitivity 62 pg/mL 3.0-54.0 [facility] Comment on above: Please Note: New Sarah t Units and Gender Specific Reference Ranges. For more information see Policy Stat Procedure [place] High Sensitivity Troponin (TNIH) and attachments. 62 pg/mL 3.0-54.0 [facility] No Panel InformationOrdered By: Henrry Cano on 01-03-2023 Troponin I High Sensitivity 53 pg/mL 3.0-54.0 [facility] Comment on above: Please Note: New Sarah t Units and Gender Specific Reference Ranges. For more information see Policy Stat Procedure [place] High Sensitivity Troponin (TNIH) and attachments. Estimated Creatinine Clearance Calc 39.07 ml/min [facility] Estimated GFR (MDRD) Amer 74 mL/min >60 [facility] Comment on above: GFR Calc Estimated GFR (MDRD) Non-Af Amer 61 mL/min >60 [facility] Comment on above: Non- GFR Calc 445.6 pg/mL 0-100 [facility] Platelets bldOrdered By: Uday Cano on 01-03-2023 Platelets (Bld) [#/Vol] 173 10*3/uL 150-450 [facility] Serum or plasma calcium criss urement (mass/volume)Ordered By: Henrry Cano on 01-03-2023 Calcium [Mass/Vol] 9.0 mg/dL 8.5-10.1 [facility] Serum or plasma creatinine m easurement (mass/volume)Ordered By: Henrry Cano on 01-03-2023 Creatinine [Mass/Vol] 0.93 mg/dL 0.55-1.[address] [facility] Comment on above: The validity of the calculated GFR & GFRAA in patients over 70 years has not been determined. Clinical correlation is essential. Serum or plasma urea nitroge n measurement (mass/volume)Ordered By: Henrry Cano on 01-03-2023 Urea nitrogen [Mass/Vol] 20 mg/dL 7-18 [facility] Thin prep Papanicolaou smear with manual screeningOrdered By: Henrry Cano on 01-03-2023 Thin prep Papanicolaou smear with manual screening 7 5-15 [facility] 36on 01-01-2023 36 Images loaded and av ailable for review with Dr. Gonzalez 01/05/2023. Normal [facility] 36on 12-30-[address] chest as scheduled 12/29/2022 at [facility]. Imaging report scanned to media tab for review. Images requested to be electronically pushed to PACS for review at upcoming appointment with Dr. Gonzalez 01/05/2023. Normal [facility] Absolute lymphocyte countOrd ered By: Matteo Jonas on 12-29-2022 Lymphocytes Auto (Unsp spec) [#/Vol] 1.33 10*3/uL 0.83-4.51 [facility] Basophil percentageOrdered B y: Matteo Jonas on 12-29-2022 Basophil percentage < 0.9 mg/dL 0.55-1.02 [facility] Basophil percentage 120 mg/dL 74-106 [facility] Basophil percentage 6.5 g/dL 6.4-8.2 [facility] Basophil percentage 0.50 mg/dL 0.20-1.00 [facility] Basophil percentage 136 mmol/L 136-145 [facility] Basophil percentage 4.4 mmol/L 3.5-5.1 [facility] Basophil percentage 105 mmol/L 98-107 [facility] Basophil percentage 178 U/L 84-246 [facility] Basophils (Bld) [#/Vol] 4.6 10*3/uL 4.4-11.0 [facility] Basophils (Bld) [#/Vol] 2.7 10*3/uL 2.0-7.7 [facility] Basophils/100 WBC (Bld) 0.2 % 0-1 [facility] Basophils/100 WBC (Bld) 59.4 % 47-70 [facility] Basophils/100 WBC (Bld) 1.1 % 0-5 [facility] Bilirubin [Mass/Vol] 0.50 mg/dL 0.20-1.00 [facility] Comment on above: For patients on eltr ombopag therapy, use of Dimension [place] TBIL is not recommended. Chloride [Moles/Vol] 105 mmol/L 98-107 [facility] Eosinophils/100 WBC (Bld) 1.1 % 0-5 [facility] Glucose [Mass/Vol] 120 mg/dL 74-106 [facility] Comment on above: Fasting Glucose resu lt from 100 to 125 mg/dL suggests IMPAIRED HOMEOSTASIS per A.D.A. criteria. LDH [Catalytic activity/Vol] 178 U/L 84-246 [facility] Neutrophils (Bld) [#/Vol] 2.7 10*3/uL 2.0-7.7 [facility] Neutrophils/100 WBC (Bld) 59.4 % 47-70 [facility] Potassium [Moles/Vol] 4.4 mmol/L 3.5-5.[address] [facility] Protein [Mass/Vol] 6.5 g/dL 6.4-8.2 [facility] Sodium [Moles/Vol] 136 mmol/L 136-145 [facility] WBC (Bld) [#/Vol] 4.6 10*3/uL 4.4-11.0 [facility] Blood erythrocytes count (nu mber/volume)Ordered By: Matteo Jonas on 12-29-2022 RBC (Bld) [#/Vol] 3.94 10*6/uL 4.2-5.4 [facility] Blood hemoglobin measurement (mass/volume)Ordered By: Matteo Jonas on 12-29-2022 Hemoglobin (Bld) [Mass/Vol] 13.0 g/dL 12.0-15.0 [facility] Blood lymphocytes/100 leukoc ytesOrdered By: Matteo Jonas on 12-29-2022 Lymphocytes/100 WBC (Bld) 29.2 % 19-41 [facility] Blood monocytes/100 leukocyt esOrdered By: Matteo Jonas on 12-29-2022 Monocytes/100 WBC (Bld) 9.9 % 0-10 [facility] Blood platelet mean volumeOr dered By: Matteo Jonas on 12-29-2022 Platelet mean volume (Bld) [Entitic vol] 10.4 fL 6.2-12.0 [facility] Determination of erythrocyte mean corpuscular volume (MCV)Ordered By: Matteo Jonas on 12-29-2022 MCV (RBC) [Entitic vol] 96.2 fL 81-99 [facility] Hematocrit Auto (Bld) [Volum e fraction]Ordered By: Matteo Jonas on 12-29-2022 Hematocrit (Bld) [Volume fraction] 37.9 % 37-47 [facility] Laboratory - Chemistry and C hemistry - challengeOrdered By: Matteo Jonas on 12-29-2022 ALP [Catalytic activity/Vol] 78 U/L 45-117 [facility] ALT [Catalytic activity/Vol] 18 U/L 13-56 [facility] CO2 [Moles/Vol] 26.0 mmol/L 21.0-32.0 [facility] Globulin (S) [Mass/Vol] 3.1 g/dL 2.2-4.2 [facility] Urea nitrogen/Creatinine [Mass ratio] 22.1 mg/mg 10-20 [facility] Laboratory - Hematology and Cell countsOrdered By: Matteo Jonas on 12-29-2022 Erythrocyte distribution width (RBC) [Entitic vol] 47.0 fL 35.1-43.9 [facility] Erythrocyte distribution width (RBC) [Ratio] 13.3 % 11.6-14.6 [facility] Immature granulocytes/100 WBC (Bld) 0.200 % 0.0-0.9 [facility] Comment on above: IG% - Immature Granu locytes (promyelocytes, myelocytes and metamyelocytes) > 1% indicates that a LEFT SHIFT is Present. MCH (RBC) [Entitic mass] 33.0 pg 27.0-32.0 [facility] Nucleated RBC/100 WBC (Bld) [Ratio] 0 % 0-5 [facility] MCHC Auto (RBC) [Mass/Vol]Or dered By: Matteo Jonas on 12-29-2022 MCHC (RBC) [Mass/Vol] 34.3 g/dL 32-[address] [facility] No Panel InformationOrdered By: Matteo Jonas on 12-29-2022 Bedside Estimated GFR (eGFR) > 60.0000 mL/min >60 [facility] > 60.0000 mL/min >60 [facility] CA 125 Antigen 23.3 U/mL 0.0-38.1 [facility] Comment on above: [employer] El ectrochemiluminescence Immunoassay(ECLIA)Values obtained with different assay methods or kits cannotbe used interchangeably. Results cannot be interpreted asabsolute evidence of the presence or absence of malignantdisease. CA 15-3 Antigen 35.4 U/mL 0.0-25.0 [facility] Comment on above: [employer] El ectrochemiluminescence Immunoassay(ECLIA)Values obtained with different assay methods or kits cannotbe used interchangeably. Results cannot be interpreted asabsolute evidence of the presence or absence of malignantdisease.Performed at: [facility] [address] [id number] Director: Maxx Yi PhD, Phone: [phone] [place] 27.29 26.9 U/mL 0.0-38.6 [facility] Comment on above: [employer] MCIaur Immu nochemiluminometric Methodology (ICMA)Values obtained with different assay methods or kits cannotbe used interchangeably. Results cannot be interpreted asabsolute evidence of the presence or absence of malignantdisease. Estimated Creatinine Clearance Calc 42.25 ml/min [facility] Estimated GFR (MDRD) Amer 81 mL/min >60 [facility] Comment on above: GFR Calc Estimated GFR (MDRD) Non-Af Amer 67 mL/min >60 [facility] Comment on above: Non- GFR Calc 33.0 pg 27.0-32.0 [facility] 13.3 % 11.6-14.6 [facility] 47.0 fl 35.1-43.9 [facility] 0.200 % 0.0-0.9 [facility] 0 % 0-5 [facility] 67 mL/min >60 [facility] 81 mL/min >60 [facility] 42.25 ml/min [facility] 22.1 RATIO 10-20 [facility] 3.1 g/dL 2.2-4.2 [facility] 78 U/L 45-117 [facility] 18 U/L 13-56 [facility] 26.0 mmol/L 21.0-32.0 [facility] 23.3 U/mL 0.0-38.1 [facility] 35.4 U/mL 0.0-25.0 [facility] 26.9 U/mL 0.0-38.6 [facility] Platelets bldOrdered By: Victorino Jonas on 12-29-2022 Platelets (Bld) [#/Vol] 171 10*3/uL 150-450 [facility] Serum or plasma albumin rciss urement (mass/volume)Ordered By: Matteo Jonas on 12-29-2022 Albumin [Mass/Vol] 3.4 g/dL 3.2-5.0 [facility] Serum or plasma albumin/glob ulin mass ratioOrdered By: Matteo Jonas on 12-29-2022 Albumin/Globulin [Mass ratio] 1.1 {ratio} 0.9-2.4 [facility] Serum or plasma calcium criss urement (mass/volume)Ordered By: Matteo Jonas on 12-29-2022 Calcium [Mass/Vol] 8.7 mg/dL 8.5-10.1 [facility] Serum or plasma carcinoembry onic antigen measurement (mass/volume)Ordered By: Matteo Jonas on 12-29-2022 Carcinoembryonic Ag [Mass/Vol] 2.1 ng/mL 0.0-4.7 [facility] Comment on above: Nonsmokers <3.9 Smok ers <5.6[employer] Electrochemiluminescence Immunoassay(ECLIA)Values obtained with different assay methods or kitscannot be used interchangeably. Results cannot beinterpreted as absolute evidence of the presence orabsence of malignant disease. Serum or plasma creatinine m easurement (mass/volume)Ordered By: Matteo Jonas on 12-29-2022 Creatinine [Mass/Vol] 0.86 mg/dL 0.55-1.[address] [facility] Comment on above: The validity of the calculated GFR & GFRAA in patients over 70 years has not been determined. Clinical correlation is essential. Serum or plasma urea nitroge n measurement (mass/volume)Ordered By: Matteo Jonas on 12-29-2022 Urea nitrogen [Mass/Vol] 19 mg/dL 7-18 [facility] Thin prep Papanicolaou smear with manual screeningOrdered By: Matteo Jonas on 12-29-2022 Thin prep Papanicolaou smear with manual screening 15 U/L 15-37 [facility] Thin prep Papanicolaou smear with manual screening 5 5-15 [facility] Laboratory - Chemistry and C hemistry - challengeOrdered By: Teagan Hall on 12-11-2022 T4 [Mass/Vol] 8.7 ug/dL 4.8-13.9 [facility] No Panel InformationOrdered By: Teagan Hall on 12-11-2022 Thyroid Stimulating Hormone (TSH) 1.04 uIU/mL 0.358-3.74 [facility] 8.7 ug/dL 4.8-13.9 [facility] 1.04 uIU/mL 0.358-3.74 [facility] Absolute lymphocyte countOrd ered By: Leena Serra on 10-30-2022 Lymphocytes Auto (Unsp spec) [#/Vol] 1.30 10*3/uL 0.83-4.51 [facility] Basophil percentageOrdered B y: Leena Serra on 10-30-2022 Basophil percentage 67 mg/dL 74-106 [facility] Basophil percentage 7.1 g/dL 6.4-8.2 [facility] Basophil percentage 0.40 mg/dL 0.20-1.00 [facility] Basophil percentage 138 mmol/L 136-145 [facility] Basophil percentage 4.4 mmol/L 3.5-5.1 [facility] Basophil percentage 108 mmol/L 98-107 [facility] Basophils (Bld) [#/Vol] 3.8 10*3/uL 4.4-11.0 [facility] Basophils (Bld) [#/Vol] 1.9 10*3/uL 2.0-7.7 [facility] Basophils/100 WBC (Bld) 0.5 % 0-1 [facility] Basophils/100 WBC (Bld) 49.1 % 47-70 [facility] Basophils/100 WBC (Bld) 1.6 % 0-5 [facility] Bilirubin [Mass/Vol] 0.40 mg/dL 0.20-1.00 [facility] Comment on above: For patients on eltr ombopag therapy, use of Dimension [place] TBIL is not recommended. Chloride [Moles/Vol] 108 mmol/L 98-107 [facility] Eosinophils/100 WBC (Bld) 1.6 % 0-5 [facility] Glucose [Mass/Vol] 67 mg/dL 74-106 [facility] Neutrophils (Bld) [#/Vol] 1.9 10*3/uL 2.0-7.7 [facility] Neutrophils/100 WBC (Bld) 49.1 % 47-70 [facility] Potassium [Moles/Vol] 4.4 mmol/L 3.5-5.[address] [facility] Protein [Mass/Vol] 7.1 g/dL 6.4-8.2 [facility] Sodium [Moles/Vol] 138 mmol/L 136-145 [facility] WBC (Bld) [#/Vol] 3.8 10*3/uL 4.4-11.0 [facility] Blood erythrocytes count (nu mber/volume)Ordered By: Leena Serra on 10-30-2022 RBC (Bld) [#/Vol] 4.20 10*6/uL 4.2-5.4 [facility] Blood hemoglobin measurement (mass/volume)Ordered By: Leena Serra on 10-30-2022 Hemoglobin (Bld) [Mass/Vol] 13.1 g/dL 12.0-15.0 [facility] Blood lymphocytes/100 leukoc ytesOrdered By: Leena Serra on 10-30-2022 Lymphocytes/100 WBC (Bld) 34.3 % 19-41 [facility] Blood monocytes/100 leukocyt esOrdered By: Leena Serra on 10-30-2022 Monocytes/100 WBC (Bld) 14.2 % 0-10 [facility] Blood platelet mean volumeOr dered By: Leena Serra on 10-30-2022 Platelet mean volume (Bld) [Entitic vol] 10.8 fL 6.2-12.0 [facility] Determination of erythrocyte mean corpuscular volume (MCV)Ordered By: Leena Serra on 10-30-2022 MCV (RBC) [Entitic vol] 94.8 fL 81-99 [facility] Hematocrit Auto (Bld) [Volum e fraction]Ordered By: Leena Serra on 10-30-2022 Hematocrit (Bld) [Volume fraction] 39.8 % 37-47 [facility] Laboratory - Chemistry and C hemistry - challengeOrdered By: Leena Serra on 10-30-2022 ALP [Catalytic activity/Vol] 60 U/L 45-117 [facility] ALT [Catalytic activity/Vol] 20 U/L 13-56 [facility] CO2 [Moles/Vol] 28.0 mmol/L 21.0-32.0 [facility] Globulin (S) [Mass/Vol] 3.7 g/dL 2.2-4.2 [facility] Urea nitrogen/Creatinine [Mass ratio] 26.0 mg/mg 10-20 [facility] Laboratory - Hematology and Cell countsOrdered By: Leena Serra on 10-30-2022 Erythrocyte distribution width (RBC) [Entitic vol] 47.7 fL 35.1-43.9 [facility] Erythrocyte distribution width (RBC) [Ratio] 13.7 % 11.6-14.6 [facility] Immature granulocytes/100 WBC (Bld) 0.300 % 0.0-0.9 [facility] Comment on above: IG% - Immature Granu locytes (promyelocytes, myelocytes and metamyelocytes) > 1% indicates that a LEFT SHIFT is Present. MCH (RBC) [Entitic mass] 31.2 pg 27.0-32.0 [facility] Nucleated RBC/100 WBC (Bld) [Ratio] 0 % 0-5 [facility] MCHC Auto (RBC) [Mass/Vol]Or dered By: Leena Serra on 10-30-2022 MCHC (RBC) [Mass/Vol] 32.9 g/dL 32-[address] [facility] No Panel InformationOrdered By: Leena Serra on 10-30-2022 Estimated GFR (MDRD) Amer 82 mL/min >60 [facility] Comment on above: GFR Calc Estimated GFR (MDRD) Non-Af Amer 68 mL/min >60 [facility] Comment on above: Non- GFR Calc 31.2 pg 27.0-32.0 [facility] 13.7 % 11.6-14.6 [facility] 47.7 fl 35.1-43.9 [facility] 0.300 % 0.0-0.9 [facility] 0 % 0-5 [facility] 68 mL/min >60 [facility] 82 mL/min >60 [facility] 26.0 RATIO 10-20 [facility] 3.7 g/dL 2.2-4.2 [facility] 60 U/L 45-117 [facility] 20 U/L 13-56 [facility] 28.0 mmol/L 21.0-32.0 [facility] Platelets bldOrdered By: Yoeltte Serra on 10-30-2022 Platelets (Bld) [#/Vol] 179 10*3/uL 150-450 [facility] Serum or plasma albumin criss urement (mass/volume)Ordered By: Leena Serra on 10-30-2022 Albumin [Mass/Vol] 3.4 g/dL 3.2-5.0 [facility] Serum or plasma albumin/glob ulin mass ratioOrdered By: Leena Serra on 10-30-2022 Albumin/Globulin [Mass ratio] 0.9 {ratio} 0.9-2.4 [facility] Serum or plasma calcium criss urement (mass/volume)Ordered By: [facility] on 10-30-2022 Calcium [Mass/Vol] 9.3 mg/dL 8.5-10.1 [facility] Serum or plasma creatinine m easurement (mass/volume)Ordered By: [facility] on 10-30-2022 Creatinine [Mass/Vol] 0.84 mg/dL 0.55-1.[address] [facility] Comment on above: The validity of the calculated GFR & GFRAA in patients over 70 years has not been determined. Clinical correlation is essential. Serum or plasma urea nitroge n measurement (mass/volume)Ordered By: [facility] on 10-30-2022 Urea nitrogen [Mass/Vol] 22 mg/dL 7-18 [facility] Thin prep Papanicolaou smear with manual screeningOrdered By: [facility] on 10-30-2022 Thin prep Papanicolaou smear with manual screening 19 U/L 15-37 [facility] Thin prep Papanicolaou smear with manual screening 2 5-15 [facility] 36on 10-28-2022 36 Navigator contacted oncology office. Patient is scheduled at [facility] for CT chest 12/29/2022. Navigator will obtain images for upcoming telehealth appt with Dr. Gonzalez 01/05/23. Mailed [facility] appt details to home address. [email or web address] [address], [place] [address] ? ~[address] [facility] 36on 10-13-2022 36 Left voicemail with Ms. Ferguson requesting call back with CT follow-up appointment date in [place]. Navigator will request imaging and arrange lung nodule clinic follow-up with Dr. Gonzalez after. [facility] 36on 09-30-2022 36 Discussed patient wi th Dr. Vidal after lung nodule clinic appointment on 09/29/2022. Patient lives in [place] and will plan to have follow-up imaging ordered and scheduled in [place]. She has upcoming appointment with her oncologist next week and we will have him place referral for imaging. Navigator will contact patient to determine when her follow-up imaging is scheduled and will arrange to have images sent and follow-up with Dr. Galo Gonzalez as VV after. 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 XR CHEST 1 VIEWon 09-23-2022 XR CHEST 1 VIEW Patient Name: [facility] 1935 [id number] Exam Date/Time: 09/22/2022 15:58 Procedure: XR CHEST 1 VIEW Ordering Provider: GONZALEZ CHELSEA Reason For Exam: Post ENB, eval for pneumo CHEST CLINICAL INDICATION: Post ENB, eval for pneumo TECHNIQUE: AP portable chest COMPARISON: CT chest from 09/20/2022 FINDINGS: SUPPORT DEVICES: Left chest wall christopher catheter tip projects over the lower SVC. HEART AND MEDIASTINUM: Unchanged prominence of the cardiac silhouette.. LUNGS AND PLEURA: Redemonstration of masslike consolidation in the right lung apex. No new focal consolidation. Small right pleural effusion.. No pneumothorax is identified. OSSEOUS STRUCTURES: Degenerative change of the spine. Chronic rib fractures. IMPRESSION: No evidence of a pneumothorax. Persistent masslike consolidation in the right lung apex and small right pleural effusion. Report Dictated on Electronically Signed By: Pilar Levine Electronically Signed Date/Time: 09/23/2022 3:05 PM EDT Normal [facility] Nursing Noteon 05-23-2023 Nursing Note Patient discharged h ome, discharge instructions provided to patient and family, they verbally acknowledged understanding. No discharge meds ordered. IV removed, site WDL. Patient with her belongings transported via wheelchair to private car Normal [facility] Op Noteon 09-22-2022 Op Note S/p navigational bro nchoscopy with transbronchial biopsies, brushings and BAL of apical RUL and anterior RUL lesions. S/p EBUS with TBNA of lymph nodes 11L, 7, 4R, and 11R. S/p endobronchial brushing of RUL endobronchial lesion. Please refer to provation note for further details. Normal [facility] CT CHEST WO IV CONTRASTon CT CHEST WO IV CONTRAST Patient Name: ROBERTO FERGUSON : 1935 Exam Date/Time: 09/20/2022 08:08 Procedure: CT CHEST WO IV CONTRAST Ordering Provider: GONZALEZ CHELSEA Reason For Exam: Lung nodule, > 8mm EXAMINATION: CT of the chest without intravenous contrast. EXAM DATE AND TIME: 09/20/2022 8:08 AM EDT INDICATION: Lung nodule, > 8mm ADDITIONAL INFORMATION: 87-year-old female with a provided history of lung nodule presents for follow-up COMPARISON: None LIMITATIONS: Evaluation of the vasculature and solid viscera is limited due to the lack of intravenous contrast. TECHNIQUE: [address] images were obtained of the chest. Images were reformatted in coronal and sagittal projections using the raw CT data and were interpreted in conjunction with the axial images to render the findings listed below. Dose reduction was employed with automated exposure control. FINDINGS: Cardiovascular: Atherosclerotic vascular calcifications are present in the aorta and coronary arteries. A left internal jugular approach chest port terminates in the SVC. Mediastinum/pericardium: Unremarkable. Thyroid: Unremarkable. Tracheobronchial tree: Widely patent. Pleura: There is a moderate right-sided pleural effusion. No left-sided pleural effusion. The lung apices are clear. Lungs: A spiculated mass near the right lung apex measures 2.1 x 3.2 cm on series 3, image 42. Bandlike scarring/atelectasis is seen in the right middle lobe and near the medial right upper lobe. Nodules: A 4 mm nodule is present in the left upper lobe (series 3, image 133).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 01-03-2023 15:56-0400 Body mass index (BMI) [Ratio] 20.6 kg/m2 Dr. Teagan Hall Work Phone: [facility] 01-03-2023 15:56-0400 Body weight 56.[address] Teagan Hall Work Phone: [facility] 01-03-2023 15:00-0400 Diastolic blood pressure 68 mm[Hg] Dr. Teagan Hall Work Phone: [facility] 01-03-2023 15:00-0400 Heart rate 82 /min Dr. Teagan Hall Work Phone: [facility] 01-03-2023 15:00-0400 Respiratory rate 16 /min Dr. Teagan Hall Work Phone: [facility] 01-03-2023 15:00-0400 SaO2% (BldA) [Mass fraction] 98 % Dr. Teagan Hall Work Phone: [facility] 01-03-2023 15:00-0400 Systolic blood pressure 124 mm[Hg] Dr. Teagan Hall Work Phone: [facility] 01-03-2023 14:37-0400 Body temperature 97.8 [degF] Dr. Teagan Hall Work Phone: [facility] 01-03-2023 09:02-0400 Body height 165.[address] Teagan Hall Work Phone: [facility] 01-03-2023 09:02-0400 Body mass index (BMI) [Ratio] 21.6 kg/m2 Dr. Teagan Hall Work Phone: [facility] 01-03-2023 09:02-0400 Body weight [address] Teagan Hall Work Phone: [facility] 01-03-2023 09:02-0400 Inhaled oxygen flow rate 2 L/min Dr. Teagan Hall Work Phone: [facility] 12-09-2022 12:43-0400 Body temperature 96.8 [degF] Dr. Teagan Hall Work Phone: 2(769)842-144258 [place] [address] 12-09-2022 12:43-0400 Diastolic blood pressure 56 mm[Hg] Dr. Teagan Hall Work Phone: 0(252)371-889558 [place] [address] 12-09-2022 12:43-0400 Heart rate 72 /min Dr. Teagan Hall Work Phone: 9(652)390-796558 [place] [address] 12-09-2022 12:43-0400 Respiratory rate 16 /min Dr. Teagan Hall Work Phone: 5(045)269-479558 [place] [address] 12-09-2022 12:43-0400 SaO2% (BldA) [Mass fraction] 100 % Dr. Teagan Hall Work Phone: 6(382)900-920158 [place] [address] 12-09-2022 12:43-0400 Systolic blood pressure 127 mm[Hg] Dr. Teagan Hall Work Phone: 6(183)398-802558 [address] [place], [place] [id number] 12-09-2022 11:02-0400 Body height 165.[address] Teagan Hall Work Phone: 7(235)314-398458 [place] [address] 12-09-2022 11:02-0400 Body mass index (BMI) [Ratio] 20 kg/m2 Dr. Teagan Hall Work Phone: 3(788)873-442758 [place] [address] 12-09-2022 11:02-0400 Body weight 54.[address] Teagan Hall Work Phone: 1(294)780-670358 [place] [address] 11-12-2022 07:13-0400 Body height 165.[address] Teagan Hall Work Phone: 4(520)567-620358 [place] [address] 11-12-2022 07:13-0400 Body mass index (BMI) [Ratio] 20.2 kg/m2 Dr. Teagan Hall Work Phone: 1(785)142-031258 [place] [address] 11-12-2022 07:13-0400 Body temperature 98.1 [degF] Dr. Teagan Hall Work Phone: 0(650)043-232258 [place] [address] 11-12-2022 07:13-0400 Body weight 55.[address] Teagan Hall Work Phone: 1(013)459-143558 [place] [address] 11-12-2022 07:13-0400 Diastolic blood pressure 107 mm[Hg] Dr. Teagan Hall Work Phone: [facility] 11-12-2022 07:13-0400 Heart rate 94 /min Dr. Teagan Hall Work Phone: [facility] 11-12-2022 07:13-0400 Respiratory rate 14 /min Dr. Teagan Hall Work Phone: [facility] 11-12-2022 07:13-0400 SaO2% (BldA) [Mass fraction] 100 % Dr. Teagan Hall Work Phone: 8(594)620-363793 [address] 11-12-2022 07:13-0400 Systolic blood pressure 130 mm[Hg] Dr. Teagan Hall Work Phone: 9(662)547-449993 [address] 11-11-2022 12:24-0400 Diastolic blood pressure 45 mm[Hg] Dr. Teagan Hall Work Phone: 5(855)247-192709 [place] [address] 11-11-2022 12:24-0400 Heart rate 66 /min Dr. Teagan Hall Work Phone: 9(451)101-585593 [address] 11-11-2022 12:24-0400 Systolic blood pressure 122 mm[Hg] Dr. Teagan Hall Work Phone: [facility] 11-11-2022 11:00-0400 Body height 165.[address] Teagan Hall Work Phone: 1(755)544-538509 [place] [address] 11-11-2022 11:00-0400 Body mass index (BMI) [Ratio] 20 kg/m2 Dr. Teagan Hall Work Phone: 7(163)320-137993 [address] 11-11-2022 11:00-0400 Body temperature 97.6 [degF] Dr. Teagan Hall Work Phone: [facility] 11-11-2022 11:00-0400 Body weight 54.[address] Teagan Hall Work Phone: [facility] 11-11-2022 11:00-0400 Respiratory rate 16 /min Dr. Teagan Hall Work Phone: [facility] 11-11-2022 11:00-0400 SaO2% (BldA) [Mass fraction] 98 % Dr. Teagan Hall Work Phone: [facility] 10-14-2022 14:21-0400 Body temperature 97.2 [degF] Dr. Teagan Hall Work Phone: [facility] 10-14-2022 14:21-0400 Diastolic blood pressure 54 mm[Hg] Dr. Teagan Hall Work Phone: [facility] 10-14-2022 14:21-0400 Heart rate 71 /min Dr. Teagan Hall Work Phone: [facility] 10-14-2022 14:21-0400 Respiratory rate 16 /min Dr. Teagan Hall Work Phone: [facility] 10-14-2022 14:21-0400 SaO2% (BldA) [Mass fraction] 100 % Dr. Teagan Hall Work Phone: [facility] 10-14-2022 14:21-0400 Systolic blood pressure 115 mm[Hg] Dr. Teagan Hall Work Phone: [facility] 10-14-2022 13:05-0400 Body height 165.[address] Teagan Hall Work Phone: [facility] 10-01-2022 13:37-0400 Body mass index (BMI) [Ratio] 20.2 kg/m2 Dr. Teagan Hall Work Phone: [facility] 10-01-2022 13:37-0400 Body temperature 98.2 [degF] Dr. Teagan Hall Work Phone: [facility] 10-01-2022 13:37-0400 Body weight 55.[address] Teagan Hall Work Phone: [facility] 10-01-2022 13:37-0400 Diastolic blood pressure 73 mm[Hg] Dr. Teagan Hall Work Phone: [facility] 10-01-2022 13:37-0400 Heart rate 77 /min Dr. Teagan Hall Work Phone: [facility] 10-01-2022 13:37-0400 Respiratory rate 16 /min Dr. Teagan Hall Work Phone: [facility] 10-01-2022 13:37-0400 SaO2% (BldA) [Mass fraction] 99 % Dr. Teagan Hall Work Phone: [facility] 10-01-2022 13:37-0400 Systolic blood pressure 133 mm[Hg] Dr. Teagan Hall Work Phone: 8(514)516-837909 [place] [address] 09-16-2022 14:43-0400 Body temperature 97.8 [degF] Dr. Teagan Hall Work Phone: 1(414)348-805609 [place] [address] 09-16-2022 14:43-0400 Diastolic blood pressure 51 mm[Hg] Dr. Teagan Hall Work Phone: 1(000)187-328609 [place] [address] 09-16-2022 14:43-0400 Heart rate 76 /min Dr. Teagan Hall Work Phone: [facility] 09-16-2022 14:43-0400 Respiratory rate 16 /min Dr. Teagan Hall Work Phone: [facility] 09-16-2022 14:43-0400 SaO2% (BldA) [Mass fraction] 100 % Dr. Teagan Hall Work Phone: [facility] 09-16-2022 14:43-0400 Systolic blood pressure 113 mm[Hg] Dr. Teagan Hall Work Phone: [facility] 09-16-2022 13:19-0400 Body mass index (BMI) [Ratio] 19.6 kg/m2 Dr. Teagan Hall Work Phone: [facility] 09-16-2022 13:19-0400 Body weight 53.[address] Teagan Hall Work Phone: [facility] 09-10-2022 10:35-0400 Body mass index (BMI) [Ratio] 19.7 kg/m2 Dr. Teagan Hall Work Phone: [facility] 09-10-2022 10:35-0400 Body temperature 98.5 [degF] Dr. Teagan Hall Work Phone: [facility] 09-10-2022 10:35-0400 Body weight 53.[address] Teagan Hall Work Phone: [facility] 09-10-2022 10:35-0400 Diastolic blood pressure 72 mm[Hg] Dr. Teagan Hall Work Phone: [facility] 09-10-2022 10:35-0400 Heart rate 77 /min Dr. Teagan Hall Work Phone: [facility] 09-10-2022 10:35-0400 Respiratory rate 16 /min Dr. Teagan Hall Work Phone: [facility] 09-10-2022 10:35-0400 SaO2% (BldA) [Mass fraction] 100 % Dr. Teagan Hall Work Phone: [facility] 09-10-2022 10:35-0400 Systolic blood pressure 125 mm[Hg] Dr. Teagan Hall Work Phone: [facility] 08-25-2022 15:20-0400 Diastolic blood pressure 55 mm[Hg] Dr. Teagan Hall Work Phone: [facility] 08-25-2022 15:20-0400 Heart rate 82 /min Dr. eTagan Hall Work Phone: [facility] 08-25-2022 15:20-0400 Respiratory rate 16 /min Dr. Teagan Hall Work Phone: [facility] 08-25-2022 15:20-0400 Systolic blood pressure 135 mm[Hg] Dr. Teagan Hall Work Phone: [facility] 08-24-2022 10:56-0400 Body height 165.[address] Teagan Hall Work Phone: [facility] 08-24-2022 10:56-0400 Body mass index (BMI) [Ratio] 20.8 kg/m2 Dr. Teagan Hall Work Phone: [facility] 08-24-2022 10:56-0400 Body temperature 98.2 [degF] Dr. Teagan Hall Work Phone: [facility] 08-24-2022 10:56-0400 Body weight 56.[address] Teagan Hall Work Phone: [facility] 08-24-2022 10:56-0400 Diastolic blood pressure 79 mm[Hg] Dr. Teagan Hall Work Phone: [facility] 08-24-2022 10:56-0400 Heart rate 69 /min Dr. Teagan Hall Work Phone: [facility] 08-24-2022 10:56-0400 Respiratory rate 16 /min Dr. Teagan Hall Work Phone: [facility] 08-24-2022 10:56-0400 SaO2% (BldA) [Mass fraction] 99 % Dr. Teagan Hall Work Phone: [facility] 08-24-2022 10:56-0400 Systolic blood pressure 142 mm[Hg] Dr. Teagan Hall Work Phone: [facility] 08-19-2022 20:00-0400 Diastolic blood pressure 69 mm[Hg] Dr. Teagan Hall Work Phone: [facility] 08-19-2022 20:00-0400 Heart rate 79 /min Dr. Teagan Hall Work Phone: [facility] 08-19-2022 20:00-0400 Respiratory rate 26 /min Dr. Teagan Hall Work Phone: [facility] 08-19-2022 20:00-0400 SaO2% (BldA) [Mass fraction] 97 % Dr. Teagan Hall Work Phone: [facility] 08-19-2022 20:00-0400 Systolic blood pressure 142 mm[Hg] Dr. Teagan Hall Work Phone: [facility] 08-19-2022 19:13-0400 Body temperature 98.2 [degF] Dr. Teagan Hall Work Phone: [facility] 08-19-2022 15:59-0400 Body height 165.[address] Teagan Hall Work Phone: [facility] 08-19-2022 15:59-0400 Body mass index (BMI) [Ratio] 22.3 kg/m2 Dr. Teagan Hall Work Phone: [facility] 08-19-2022 15:59-0400 Body weight 60.[address] Teagan Hall Work Phone: [facility] 08-19-2022 14:29-0400 Diastolic blood pressure 36 mm[Hg] Dr. Teagan Hall Work Phone: [facility] 08-19-2022 14:29-0400 Heart rate 65 /min Dr. Teagan Hall Work Phone: [facility] 08-19-2022 14:29-0400 Respiratory rate 16 /min Dr. Teagan Hall Work Phone: [facility] 08-19-2022 14:29-0400 SaO2% (BldA) [Mass fraction] 100 % Dr. Teagan Hall Work Phone: [facility] 08-19-2022 14:29-0400 Systolic blood pressure 116 mm[Hg] Dr. Teagan Hall Work Phone: [facility] 08-19-2022 13:11-0400 Body mass index (BMI) [Ratio] 21.2 kg/m2 Dr. Teagan Hall Work Phone: [facility] 08-19-2022 13:11-0400 Body temperature 97.5 [degF] Dr. Teagan Hall Work Phone: [facility] 08-19-2022 13:11-0400 Body weight 58.[address] Teagan Hall Work Phone: [facility] 08-13-2022 10:36-0400 Body height 166.4 cm Marcus Funmilayo DPM Work Phone: [facility] 08-13-2022 10:36-0400 Body weight 58.51 kg Marcus Funmilayo DPM Work Phone: [facility] 08-13-2022 10:36-0400 Respiratory rate 18 /min Marcus eMllo DPM Work Phone: [facility] 07-22-2022 13:59-0400 Diastolic blood pressure 60 mm[Hg] Dr. Teagan Hall Work Phone: [facility] 07-22-2022 13:59-0400 Heart rate 75 /min Dr. Teagan Hall Work Phone: [facility] 07-22-2022 13:59-0400 Systolic blood pressure 124 mm[Hg] Dr. Teagan Hall Work Phone: [facility] 07-22-2022 12:26-0400 Body height 165.[address] Teagan Hall Work Phone: [facility] 07-22-2022 12:26-0400 Body mass index (BMI) [Ratio] 20.9 kg/m2 Dr. Teagan Hall Work Phone: [facility] 07-22-2022 12:26-0400 Body temperature 98 [degF] Dr. Teagan Hall Work Phone: [facility] 07-22-2022 12:26-0400 Body weight 57.[address] Teagan Hall Work Phone: [facility] 07-22-2022 12:26-0400 Respiratory rate 16 /min Dr. Teagan Hall Work Phone: [facility] 07-22-2022 12:26-0400 SaO2% (BldA) [Mass fraction] 98 % Dr. Teagan Hall Work Phone: [facility] 07-09-2022 14:06-0500 Body height 166.4 cm Marcus Funmilayo DPM Work Phone: [facility] 07-09-2022 14:06-0500 Body weight 58.51 kg Marcus Funmilayo DPM Work Phone: [facility] 07-09-2022 14:06-0500 Respiratory rate 18 /min Marcus Funmilayo DPM Work Phone: [facility] 07-01-2022 10:04-0500 Body height 166.[address] Teagan Hall Work Phone: [facility] 07-01-2022 10:04-0500 Body mass index (BMI) [Ratio] 20.2 kg/m2 Dr. Teagan Hall Work Phone: [facility] 07-01-2022 10:04-0500 Body weight 55.[address] Teagan Hall Work Phone: [facility] 07-01-2022 10:04-0500 Diastolic blood pressure 60 mm[Hg] Dr. Teagan Hall Work Phone: [facility] 07-01-2022 10:04-0500 Heart rate 88 /min Dr. Teagan Hall Work Phone: [facility] 07-01-2022 10:04-0500 Respiratory rate 16 /min Dr. Teagan Hall Work Phone: [facility] 07-01-2022 10:04-0500 Systolic blood pressure 142 mm[Hg] Dr. Teagan Hall Work Phone: [facility] 06-24-2022 11:46-0500 Diastolic blood pressure 60 mm[Hg] Dr. Teagan Hall Work Phone: [facility] 06-24-2022 11:46-0500 Heart rate 75 /min Dr. Teagan Hall Work Phone: [facility] 06-24-2022 11:46-0500 Systolic blood pressure 128 mm[Hg] Dr. Teagan Hall Work Phone: [facility] 06-24-2022 10:38-0500 Body mass index (BMI) [Ratio] 20.3 kg/m2 Dr. Teagan Hall Work Phone: [facility] 06-24-2022 10:38-0500 Body temperature 97.6 [degF] Dr. Teagan Hall Work Phone: [facility] 06-24-2022 10:38-0500 Body weight 56.[address] Teagan Hall Work Phone: [facility] 06-24-2022 10:38-0500 Respiratory rate 16 /min Dr. eTagan Hall Work Phone: [facility] 06-24-2022 10:38-0500 SaO2% (BldA) [Mass fraction] 95 % Dr. Teagan Hall Work Phone: [facility] 06-05-2022 14:02-0500 Body height 165.1 cm Marcus Mello DPM Work Phone: [facility] 06-05-2022 14:02-0500 Body weight 58.51 kg Marcus Hearnman DPM Work Phone: [facility] 06-05-2022 14:02-0500 Respiratory rate 18 /min Marcus Funmilayo DPM Work Phone: [facility] 05-29-2022 13:26-0500 Body height 166.4 cm Marcus Funmilayo DPM Work Phone: [facility] 05-29-2022 13:26-0500 Body weight 58.51 kg Marcus Funmilayo DPM Work Phone: [facility] 05-29-2022 13:26-0500 Respiratory rate 20 /min Marcus Funmilayo LOPEZ Work Phone: [facility] 05-05-2022 11:14-0500 Body height 165.1 cm Pst 1 [facility] 05-05-2022 11:14-0500 Body temperature 98.6 [degF] Pst 1 [facility] 05-05-2022 11:14-0500 Body weight 58.51 kg Pst 1 [facility] 05-05-2022 11:14-0500 Diastolic blood pressure 67 mm[Hg] Pst 1 [facility] 05-05-2022 11:14-0500 Heart rate 72 /min Pst 1 [facility] 05-05-2022 11:14-0500 Respiratory rate 16 /min Pst 1 [facility] 05-05-2022 11:14-0500 SaO2% (BldA) [Mass fraction] 99 % Pst 1 [facility] 05-05-2022 11:14-0500 Systolic blood pressure 121 mm[Hg] Pst 1 [facility] 04-16-2022 14:51-0500 Body height 166.[address] Teagan Hall Work Phone: [facility] 04-16-2022 14:46-0500 Body mass index (BMI) [Ratio] 20.9 kg/m2 Dr. Teagan Hall Work Phone: [facility] 04-16-2022 14:46-0500 Body temperature 98.2 [degF] Dr. Teagan Hall Work Phone: [facility] 04-16-2022 14:46-0500 Body weight 57.[address] Teagan Hall Work Phone: [facility] 04-16-2022 14:46-0500 Diastolic blood pressure 68 mm[Hg] Dr. Teagan Hall Work Phone: [facility] 04-16-2022 14:46-0500 Heart rate 73 /min Dr. Teagan Hall Work Phone: [facility] 04-16-2022 14:46-0500 Respiratory rate 16 /min Dr. Teagan Hall Work Phone: [facility] 04-16-2022 14:46-0500 SaO2% (BldA) [Mass fraction] 100 % Dr. Teagan Hall Work Phone: [facility] 04-16-2022 14:46-0500 Systolic blood pressure 123 mm[Hg] Dr. Teagan Hall Work Phone: [facility] 04-09-2022 11:38-0500 Body height 166.4 cm Marcus Mello DPM Work Phone: [facility] 04-09-2022 11:38-0500 Body temperature 98.2 [degF] Marcus Mello DPM Work Phone: [facility] 04-09-2022 11:38-0500 Body weight 56.7 kg Marcus Mello DPM Work Phone: [facility] 04-03-2022 10:57-0500 Body mass index (BMI) [Ratio] 20.5 kg/m2 Dr. Teagan Hall Work Phone: [facility] 04-03-2022 10:57-0500 Body temperature 97.6 [degF] Dr. Teagan Hall Work Phone: [facility] 04-03-2022 10:57-0500 Body weight 56.[address] Teagan Hall Work Phone: [facility] 04-03-2022 10:57-0500 Diastolic blood pressure 65 mm[Hg] Dr. Teagan Hall Work Phone: [facility] 04-03-2022 10:57-0500 Heart rate 72 /min Dr. Teagan Hall Work Phone: [facility] 04-03-2022 10:57-0500 Respiratory rate 16 /min Dr. Teagan Hall Work Phone: [facility] 04-03-2022 10:57-0500 SaO2% (BldA) [Mass fraction] 99 % Dr. Teagan Hall Work Phone: [facility] 04-03-2022 10:57-0500 Systolic blood pressure 115 mm[Hg] Dr. Teagan Hall Work Phone: [facility] 03-18-2022 09:45-0500 Body height 167.6 cm Marcus Mello DPM Work Phone: [facility] 03-18-2022 09:45-0500 Body weight 67.13 kg Marcus Mello DPM Work Phone: [facility] 03-18-2022 09:45-0500 Respiratory rate 17 /min Marcus Mello DPM Work Phone: [facility] 03-06-2022 11:11-0400 Body temperature 97.5 [degF] Dr. Teagan Hall Work Phone: [facility] 03-06-2022 11:11-0400 Diastolic blood pressure 55 mm[Hg] Dr. Teagan Hall Work Phone: [facility] 03-06-2022 11:11-0400 Heart rate 80 /min Dr. Teagan Hall Work Phone: [facility] 03-06-2022 11:11-0400 SaO2% (BldA) [Mass fraction] 98 % Dr. Teagan Hall Work Phone: [facility] 03-06-2022 11:11-0400 Systolic blood pressure 129 mm[Hg] Dr. Teagan Hall Work Phone: [facility] 02-06-2022 12:15-0400 Body temperature 97.6 [degF] Dr. Teagan Hall Work Phone: [facility] 02-06-2022 12:15-0400 Diastolic blood pressure 57 mm[Hg] Dr. Teagan Hall Work Phone: [facility] 02-06-2022 12:15-0400 Heart rate 72 /min Dr. Teagan Hall Work Phone: [facility] 02-06-2022 12:15-0400 Respiratory rate 16 /min Dr. Teagan Hall Work Phone: [facility] 02-06-2022 12:15-0400 SaO2% (BldA) [Mass fraction] 100 % Dr. Teagan Hall Work Phone: [facility] 02-06-2022 12:15-0400 Systolic blood pressure 138 mm[Hg] Dr. Teagan Hall Work Phone: [facility] 02-06-2022 10:52-0400 Body height 166.[address] Teagan Hall Work Phone: [facility] Work Phone: 02-06-2022 10:52-0400 Body mass index (BMI) [Ratio] 21.3 kg/m2 Dr. Teagan Hall Work Phone: [facility] 02-06-2022 10:52-0400 Body weight 58.[address] Teagan Hall Work Phone: [facility] 01-09-2022 11:16-0400 Body height 166.[address] Teagan Hall Work Phone: [facility] Work Phone: 01-09-2022 11:16-0400 Body mass index (BMI) [Ratio] 21.3 kg/m2 Dr. Teagan Hall Work Phone: [facility] Work Phone: 01-09-2022 11:16-0400 Body temperature 96.4 [degF] Dr. Teagan Hall Work Phone: [facility] Work Phone: 01-09-2022 11:16-0400 Body weight 58.[address] Teagan Hall Work Phone: [facility] Work Phone: 01-09-2022 11:16-0400 Diastolic blood pressure 59 mm[Hg] Dr. Teagan Hall Work Phone: [facility] Work Phone: 01-09-2022 11:16-0400 Heart rate 64 /min Dr. Teagan Hall Work Phone: [facility] Work Phone: 01-09-2022 11:16-0400 Respiratory rate 16 /min Dr. Teagan Hall Work Phone: [facility] Work Phone: 01-09-2022 11:16-0400 SaO2% (BldA) [Mass fraction] 98 % Dr. Teagan Hall Work Phone: [facility] Work Phone: 01-09-2022 11:16-0400 Systolic blood pressure 119 mm[Hg] Dr. Teagan Hall Work Phone: [facility] Work Phone: 12-24-2021 13:36-0400 Body mass index (BMI) [Ratio] 21.4 kg/m2 Dr. Teagan Hall Work Phone: [facility] Work Phone: 12-24-2021 13:36-0400 Body weight 59.[address] Teagan Hall Work Phone: [facility] Work Phone: 12-24-2021 13:36-0400 Diastolic blood pressure 60 mm[Hg] Dr. Teagan Hall Work Phone: [facility] Work Phone: 12-24-2021 13:36-0400 Heart rate 64 /min Dr. Teagan Hall Work Phone: [facility] Work Phone: 12-24-2021 13:36-0400 Respiratory rate 16 /min Dr. Teagan Hall Work Phone: [facility] Work Phone: 12-24-2021 13:36-0400 Systolic blood pressure 130 mm[Hg] Dr. Teagan Hall Work Phone: [facility] Work Phone: 12-12-2021 12:17-0400 Diastolic blood pressure 43 mm[Hg] Dr. Teagan Hall Work Phone: [facility] Work Phone: 12-12-2021 12:17-0400 Heart rate 57 /min Dr. Teagan Hall Work Phone: [facility] Work Phone: 12-12-2021 12:17-0400 Respiratory rate 16 /min Dr. Teagan Hall Work Phone: [facility] Work Phone: 12-12-2021 12:17-0400 SaO2% (BldA) [Mass fraction] 98 % Dr. Teagan Hall Work Phone: [facility] Work Phone: 12-12-2021 12:17-0400 Systolic blood pressure 135 mm[Hg] Dr. Teagan aHll Work Phone: [facility] Work Phone: 12-12-2021 11:09-0400 Body mass index (BMI) [Ratio] 21.3 kg/m2 Dr. Teagan Hall Work Phone: [facility] Work Phone: 12-12-2021 11:09-0400 Body temperature 97.5 [degF] Dr. Teagan Hall Work Phone: [facility] Work Phone: 12-12-2021 11:09-0400 Body weight 58.[address] Teagan Hall Work Phone: [facility] Work Phone: 11-14-2021 10:53-0400 Body height 166.37 cm [facility] Work Phone: 11-14-2021 10:53-0400 Body mass index (BMI) [Ratio] 21.3 kg/m2 [facility] Work Phone: 11-14-2021 10:53-0400 Body temperature 96.6 [degF] [facility] Work Phone: 11-14-2021 10:53-0400 Body weight 58.96 kg [facility] Work Phone: 11-14-2021 10:53-0400 Diastolic blood pressure 53 mm[Hg] [facility] Work Phone: 11-14-2021 10:53-0400 Heart rate 74 /min [facility] Work Phone: 11-14-2021 10:53-0400 Respiratory rate 16 /min [facility] Work Phone: 11-14-2021 10:53-0400 SaO2% (BldA) [Mass fraction] 98 % [facility] Work Phone: 11-14-2021 10:53-0400 Systolic blood pressure 135 mm[Hg] [facility] Work Phone: 10-17-2021 12:08-0400 Body temperature 96.8 [degF] [facility] Work Phone: 10-17-2021 12:08-0400 Diastolic blood pressure 66 mm[Hg] [facility] Work Phone: 10-17-2021 12:08-0400 Heart rate 66 /min [facility] Work Phone: 10-17-2021 12:08-0400 Respiratory rate 16 /min [facility] Work Phone: 10-17-2021 12:08-0400 SaO2% (BldA) [Mass fraction] 100 % [facility] Work Phone: 10-17-2021 12:08-0400 Systolic blood pressure 127 mm[Hg] [facility] Work Phone: 10-17-2021 10:55-0400 Body weight 61.53 kg [facility] Work Phone: 09-19-2021 11:15-0400 Body height 165.1 cm [facility] Work Phone: 09-19-2021 11:15-0400 Body temperature 97.5 [degF] [facility] Work Phone: 09-19-2021 11:15-0400 Diastolic blood pressure 49 mm[Hg] [facility] Work Phone: 09-19-2021 11:15-0400 Heart rate 65 /min [facility] Work Phone: 09-19-2021 11:15-0400 Respiratory rate 16 /min [facility] Work Phone: 09-19-2021 11:15-0400 SaO2% (BldA) [Mass fraction] 100 % [facility] Work Phone: 09-19-2021 11:15-0400 Systolic blood pressure 121 mm[Hg] [facility] Work Phone: 08-20-2021 12:34-0400 Diastolic blood pressure 74 mm[Hg] Dr. Teagan Hall Work Phone: [facility] Work Phone: 08-20-2021 12:34-0400 Heart rate 70 /min Dr. Teagan Hall Work Phone: [facility] Work Phone: 08-20-2021 12:34-0400 Respiratory rate 16 /min Dr. Teagan Hall Work Phone: [facility] Work Phone: 08-20-2021 12:34-0400 SaO2% (BldA) [Mass fraction] 98 % Dr. Teagan Hall Work Phone: [facility] Work Phone: 08-20-2021 12:34-0400 Systolic blood pressure 149 mm[Hg] Dr. Teagan Hall Work Phone: [facility] Work Phone: 08-20-2021 11:15-0400 Body height 165.[address] Teagan Hall Work Phone: [facility] Work Phone: 08-20-2021 11:15-0400 Body mass index (BMI) [Ratio] 22.4 kg/m2 Dr. Teagan Hall Work Phone: [facility] Work Phone: 08-20-2021 11:15-0400 Body temperature 98.3 [degF] Dr. Teagan Hall Work Phone: [facility] Work Phone: 08-20-2021 11:15-0400 Body weight 61.[address] Teagan Hall Work Phone: [facility] Work Phone: 07-23-2021 13:51-0400 Body temperature 97 [degF] Dr. Teagan Hall Work Phone: [facility] Work Phone: 07-23-2021 13:51-0400 Diastolic blood pressure 78 mm[Hg] [facility] Teagan Hall Work Phone[facility] [facility] Work Phone: 07-23-2021 13:51-0400 Heart rate 65 /min Dr. Teagan Hall Work Phone: [facility] Work Phone: 07-23-2021 13:51-0400 Respiratory rate 16 /min Dr. Teagan Hall Work Phone: [facility] Work Phone: 07-23-2021 13:51-0400 SaO2% (BldA) [Mass fraction] 96 % Dr. Teagan Hall Work Phone: [facility] Work Phone: 07-23-2021 13:51-0400 Systolic blood pressure 142 mm[Hg] Dr. Teagan Hall Work Phone: [facility] Work Phone: 07-23-2021 12:59-0400 Body height 165.[address] Teagan Hall Work Phone: [facility] Work Phone: 06-25-2021 11:13-0500 Body mass index (BMI) [Ratio] 21.9 kg/m2 [facility] Work Phone: 06-25-2021 11:13-0500 Body temperature 97.3 [degF] [facility] Work Phone: 06-25-2021 11:13-0500 Body weight 59.87 kg [facility] Work Phone: 06-25-2021 11:13-0500 Diastolic blood pressure 51 mm[Hg] [facility] Work Phone: 06-25-2021 11:13-0500 Heart rate 64 /min [facility] Work Phone: 06-25-2021 11:13-0500 Respiratory rate 16 /min [facility] Work Phone: 06-25-2021 11:13-0500 SaO2% (BldA) [Mass fraction] 100 % [facility] Work Phone: 06-25-2021 11:13-0500 Systolic blood pressure 112 mm[Hg] [facility] Work Phone: 06-25-2021 10:13-0500 Body mass index (BMI) [Ratio] 21.9 kg/m2 Dr. Teagan Hall Work Phone: [facility] Work Phone: 06-25-2021 10:13-0500 Body temperature 97.3 [degF] Dr. Teagan Hall Work Phone: [facility] Work Phone: 06-25-2021 10:13-0500 Body weight 59.[address] Teagan Hall Work Phone: [facility] Work Phone: 06-25-2021 10:13-0500 Diastolic blood pressure 51 mm[Hg] Dr. Teagan Hall Work Phone: [facility] Work Phone: 06-25-2021 10:13-0500 Heart rate 64 /min Dr. Teagan Hall Work Phone: [facility] Work Phone: 06-25-2021 10:13-0500 Respiratory rate 16 /min Dr. Teagan Hall Work Phone: [facility] Work Phone: 06-25-2021 10:13-0500 SaO2% (BldA) [Mass fraction] 100 % Dr. Teagan Hall Work Phone: [facility] Work Phone: 06-25-2021 10:13-0500 Systolic blood pressure 112 mm[Hg] Dr. Teagan Hall Work Phone: [facility] Work Phone: 05-28-2021 11:32-0500 Body temperature 96.8 [degF] Dr. Teagan Hall Work Phone: [facility] Work Phone: 05-28-2021 11:32-0500 Diastolic blood pressure 50 mm[Hg] Dr. Teagan Hall Work Phone: [facility] Work Phone: 05-28-2021 11:32-0500 Heart rate 70 /min Dr. Teagan Hall Work Phone: [facility] Work Phone: 05-28-2021 11:32-0500 Systolic blood pressure 126 mm[Hg] Dr. Teagan Hall Work Phone: [facility] Work Phone: 05-28-2021 10:38-0500 Respiratory rate 16 /min Dr. Teagan Hall Work Phone: [facility] Work Phone: 05-28-2021 10:38-0500 SaO2% (BldA) [Mass fraction] 98 % Dr. Teagan Hall Work Phone: [facility] Work Phone: 05-12-2021 09:56-0500 Body mass index (BMI) [Ratio] 22.1 kg/m2 Dr. Teagan Hall Work Phone: [facility] Work Phone: 05-12-2021 09:56-0500 Body weight 60.[address] Teagan Hall Work Phone: [facility] Work Phone: 05-12-2021 09:56-0500 Diastolic blood pressure 73 mm[Hg] Dr. Teagan Hall Work Phone: [facility] Work Phone: 05-12-2021 09:56-0500 Heart rate 80 /min Dr. Teagan Hall Work Phone: [facility] Work Phone: 05-12-2021 09:56-0500 Respiratory rate 18 /min Dr. Teagan Hall Work Phone: [facility] Work Phone: 05-12-2021 09:56-0500 Systolic blood pressure 137 mm[Hg] Dr. Teagan Hall Work Phone: [facility] Work Phone: 04-30-2021 11:16-0500 Body temperature 97.3 [degF] Dr. Teagan Hall Work Phone: [facility] Work Phone: 04-30-2021 11:16-0500 Diastolic blood pressure 60 mm[Hg] Dr. Teagan Hall Work Phone: [facility] Work Phone: 04-30-2021 11:16-0500 Heart rate 66 /min Dr. Teagan Hall Work Phone: [facility] Work Phone: 04-30-2021 11:16-0500 Respiratory rate 16 /min Dr. Teagan Hall Work Phone: [facility] Work Phone: 04-30-2021 11:16-0500 SaO2% (BldA) [Mass fraction] 99 % Dr. Teagan Hall Work Phone: [facility] Work Phone: 04-30-2021 11:16-0500 Systolic blood pressure 124 mm[Hg] Dr. Teagan Hall Work Phone: [facility] Work Phone: 04-30-2021 09:51-0500 Body mass index (BMI) [Ratio] 22.4 kg/m2 Dr. Teagan Hall Work Phone: [facility] Work Phone: 04-30-2021 09:51-0500 Body weight 61.[address] Teagan Hall Work Phone: [facility] Work Phone: 04-17-2021 13:19-0500 Body mass index (BMI) [Ratio] 22.3 kg/m2 Dr. Teagan Hall Work Phone: [facility] Work Phone: 04-17-2021 13:19-0500 Body temperature 98.4 [degF] Dr. Teagan Hall Work Phone: [facility] Work Phone: 04-17-2021 13:19-0500 Body weight 60.[address] Teagan Hall Work Phone: [facility] Work Phone: 04-17-2021 13:19-0500 Diastolic blood pressure 79 mm[Hg] Dr. Teagan Hall Work Phone: [facility] Work Phone: 04-17-2021 13:19-0500 Heart rate 74 /min Dr. Teagan Hall Work Phone: [facility] Work Phone: 04-17-2021 13:19-0500 Respiratory rate 17 /min Dr. Teagan Hall Work Phone: [facility] Work Phone: 04-17-2021 13:19-0500 SaO2% (BldA) [Mass fraction] 98 % Dr. Teagan Hall Work Phone: [facility] Work Phone: 04-17-2021 13:19-0500 Systolic blood pressure 147 mm[Hg] Dr. Teagan Hall Work Phone: [facility] Work Phone: 04-02-2021 11:29-0500 Diastolic blood pressure 52 mm[Hg] Dr. Teagan Hall Work Phone: [facility] Work Phone: 04-02-2021 11:29-0500 Heart rate 64 /min Dr. Teagan Hall Work Phone: [facility] Work Phone: 04-02-2021 11:29-0500 SaO2% (BldA) [Mass fraction] 100 % Dr. Teagan Hall Work Phone: [facility] Work Phone: 04-02-2021 11:29-0500 Systolic blood pressure 138 mm[Hg] Dr. Teagan Hall Work Phone: [facility] Work Phone: 04-02-2021 10:04-0500 Body mass index (BMI) [Ratio] 22.4 kg/m2 Dr. Teagan Hall Work Phone: [facility] Work Phone: 04-02-2021 10:04-0500 Body temperature 97.5 [degF] Dr. Teagan Hall Work Phone: [facility] Work Phone: 04-02-2021 10:04-0500 Body weight 61.[address] Teagan Hall Work Phone: [facility] Work Phone: 04-02-2021 10:04-0500 Respiratory rate 16 /min Dr. Teagan Hall Work Phone: [facility] Work Phone: 04-18-2020 11:28-0500 Body mass index (BMI) [Ratio] 23.1 kg/m2 Dr. Teagan Hall Work Phone: [facility] 04-18-2020 11:28-0500 Body temperature 97.4 [degF] Dr. Teagan Hall Work Phone: [facility] 04-18-2020 11:28-0500 Body weight 64.[address] Teagan Hall Work Phone: [facility] 04-18-2020 11:28-0500 Diastolic blood pressure 69 mm[Hg] Dr. Teagan Hall Work Phone: [facility] 04-18-2020 11:28-0500 Heart rate 72 /min Dr. Teagan Hall Work Phone: [facility] 04-18-2020 11:28-0500 Respiratory rate 20 /min Dr. Teagan Hall Work Phone: [facility] 04-18-2020 11:28-0500 SaO2% (BldA) [Mass fraction] 97 % Dr. Teagan Hall Work Phone: [facility] 04-18-2020 11:28-0500 Systolic blood pressure 114 mm[Hg] Dr. Teagan Hall Work Phone: [facility] 04-18-2020 10:28-0500 Body mass index (BMI) [Ratio] 23.1 kg/m2 Dr. Teagan Hall Work Phone: [facility] Work Phone: 04-18-2020 10:28-0500 Body temperature 97.4 [degF] Dr. Teagan Hall Work Phone: [facility] Work Phone: 04-18-2020 10:28-0500 Body weight 64.[address] Teagan Hall Work Phone: [facility] Work Phone: 04-18-2020 10:28-0500 Diastolic blood pressure 69 mm[Hg] Dr. Teagan Hall Work Phone: [facility] Work Phone: 04-18-2020 10:28-0500 Heart rate 72 /min Dr. Teagan Hall Work Phone: [facility] Work Phone: 04-18-2020 10:28-0500 Respiratory rate 20 /min Dr. Teagan Hall Work Phone: [facility] Work Phone: 04-18-2020 10:28-0500 SaO2% (BldA) [Mass fraction] 97 % Dr. Teagan Hall Work Phone: [facility] Work Phone: 04-18-2020 10:28-0500 Systolic blood pressure 114 mm[Hg] Dr. Teagna Hall Work Phone: [facility] Work Phone: Encounters Encounter Date Encounter Type Care Provider Facility Start: 09-29-2024 End: 09-29-2024 ambulatory [facility] Facility:[facility] Start: 09-12-2024 End: 09-12-[address] Elias Arevalo MD -[facility] Work Phone: Start: 09-12-2024 End: 09-12-[address] Teagan Hall MD Work Phone: [facility] Work Phone: Start: 07-28-2024 End: 07-28-[address] Teagan Hall MD Work Phone: [facility] Work Phone: Start: 07-28-2024 End: 07-28-2024 Patient encounter procedure Sharad Londono NP-C -Labor[facility], [place] Work Phone: Start: 07-28-2024 End: 07-28-2024 ambulatory Sharad Londono NP Facility:[facility] Start: 07-23-2024 End: 07-23-2024 Emergency department patient visit Dr. Teagan Hall MD Work Phone: -Emergency Department Work Phone: Start: 07-22-2024 End: 07-22-[address] Teagan Hall MD Work Phone: [facility] Work Phone: Start: 07-22-2024 End: 07-22-2024 Patient encounter procedure Holli Gaona PA -Laboratory Work Phone: Start: 07-21-2024 End: 07-22-2024 ambulatory Holli JOEL Facility:[facility] Start: 07-21-2024 End: 07-21-[address] Elias Arevalo MD -[facility] Work Phone: Start: 07-04-2024 End: 07-04-[address] Teagan Hall MD Work Phone: [facility] Work Phone: Start: 07-04-2024 End: 07-04-[address] Tripp Chidlress MD -[facility], [place] Work Phone: Start: 07-04-2024 End: 07-04-2024 ambulatory [place] Mied[place] Facility:[facility] Start: 06-14-2024 End: 06-14-[address] Tripp Childress MD -[facility] Work Phone: Start: 06-14-2024 End: 06-14-2024 ambulatory [place] Miarleth Facility:[facility] Start: 06-02-2024 End: 06-02-[address] Leena Serra MD -Labor[facility], [place] Work Phone: Start: 06-02-2024 End: 06-02-2024 ambulatory [place] Childress Facility:[facility] Start: 05-01-2024 End: 05-01-2024 Patient encounter procedure Holli JOEL -[facility] Work Phone: Start: 05-01-2024 End: 05-01-2024 ambulatory Teagan S Rafael Facility:[facility] Start: 04-21-2024 End: 04-21-2024 ambulatory Elias Arevalo Facility:[facility] Start: 04-21-2024 End: 04-21-[address] Elias Arevalo MD -[facility] Work Phone: Start: 02-15-2024 End: 02-15-2024 ambulatory Holli JOEL Facility:[facility] Start: 02-01-2024 End: 02-01-2024 ambulatory Leena Vellanandrew Facility:[facility] Start: 01-21-2024 End: 01-21-2024 ambulatory Teagan S Jolliff Facility:[facility] Start: 01-20-2024 End: 01-20-2024 ambulatory Eliasphoenix Arevalo Facility:[facility] Start: 12-23-2023 End: 12-23-2023 ambulatory Leena Vellanandrew Facility:[facility] Start: 11-11-2023 End: 11-11-2023 ambulatory Sharad Londono [employer] BUSINESS DIRECT[employer] Facility:[facility] Start: 11-09-2023 ambulatory Sharad Londono NATIONAL BUSINESS DIRECTOR Facility :[facility] Start: 11-08-2023 [facility] Start: 11-08-2023 End: 11-08-2023 ambulatory Sharad Londono NP Facility:[facility] Start: 10-27-2023 End: 10-27-2023 ambulatory Leena Serra Facility:[facility] Start: 10-19-2023 End: 10-19-20[facility] Start: 10-11-2023 ambulatory Mary Zapien NATIONAL BUSINESS DIRECTOR Facili ty:[facility] Start: 10-11-2023 End: 10-11-2023 ambulatory Teagan Hall Facility:[facility] Start: 08-24-2023 Non-patient / Non-visit Dr. Marge Hall Work Phone: [facility] Start: 08-24-2023 End: 08-24-[address] Teagan Hall Work Phone: [facility] Work Phone: Start: 08-24-2023 End: 08-24-[address] Teagan Hall Work Phone: [facility] Work Phone: Start: 08-23-2023 End: 08-23-[address] Teagan Hall Work Phone: [facility] Work Phone: Start: 08-23-2023 End: 08-23-[address] Teagan Hall Work Phone: [facility] Work Phone: Start: 08-03-2023 Telephone encounter Galo Gonzalez DO Work Phone: [facility] Start: 08-03-2023 End: 08-03-2023 ambulatory TEAGAN HALL [facility] Start: 08-03-2023 End: 08-03-2023 Office outpatient visit 15 minutes Galo Gonzalez DO Work Phone: [facility] Comment on above: Pulmonary lesion (Pr imary Dx); Pleural effusion Start: 07-19-2023 End: 07-19-[address] Teagan Hall Work Phone: [facility] Work Phone: Start: 07-19-2023 End: 07-19-[address] Teagan Hall Work Phone: [facility] Work Phone: Start: 07-16-2023 End: 07-16-[address] Teagan Hall Work Phone: [facility] Work Phone: Start: 07-12-2023 End: 07-12-[address] Teagan Hall Work Phone: [facility] Work Phone: Start: 07-12-[address] Teagan castelan Work Phone: [facility] Start: 07-05-2023 End: 07-05-[address] Teagan Hall Work Phone: [facility] Work Phone: Start: 07-05-2023 End: 07-05-[address] Teagan Hall Work Phone: [facility]-Cat Scan, [facility] Work Phone: Start: 06-30-2023 Telephone encounter Ladi Sharp [facility] Pulmonary and Sleep Medicine Comment on above: Care Coordination Start: 06-23-2023 End: 06-23-[address] Teagan Hall Work Phone: [facility] Work Phone: Start: 06-23-2023 End: 06-23-[address] Teagan Hall Work Phone: [facility]-Medical Out Work Phone: Start: 05-26-2023 End: 05-26-[address] Teagan Hall Work Phone: [facility] Work Phone: Start: 05-26-2023 End: 05-26-[address] Teagan Hall Work Phone: [facility]-Medical Out Work Phone: Start: 05-13-2023 Non-patient / Non-visit Dr. Marge Hall Work Phone: [facility] Start: 05-12-2023 Non-patient / Non-visit Dr. Marge Hall Work Phone: [facility] Start: 05-12-2023 End: 05-12-[address] Teagan Hall Work Phone: [facility] Work Phone: Start: 05-12-2023 End: 05-12-[address] Teagan Hall Work Phone: [facility]-Pulmonary Services/Neurology Work Phone: Start: 05-11-2023 End: 05-11-[address] Teagan Hall Work Phone: [facility] Work Phone: Start: 05-11-2023 End: 05-11-[address] Teagan Hall Work Phone: [facility]-Pulmonary Services/Neurology Work Phone: Start: 05-07-2023 End: 05-07-2023 Non-patient / Non-visit Dr. Teagan Hall Work Phone: [facility] Work Phone: Start: 05-07-2023 End: 05-07-2023 Admission to same day surgery center Dr. Teagan Hall Work Phone: [facility]-[employer]/Special Procedures Work Phone: Start: 05-07-2023 End: 05-07-[address] Teagan Hall Work Phone: [facility] Work Phone: Start: 05-04-2023 End: 05-04-[address] Teagan Hall Work Phone: [facility] Work Phone: Start: 05-04-2023 End: 05-04-[address] Teagan Hall Work Phone: [facility]-Laboratory, OP Pavilion Start: 05-04-2023 End: 05-04-[address] Teagan Hall Work Phone: [facility]-Pulmonary Medicine [facility] Work Phone: Start: 04-08-2023 Non-patient / Non-visit Dr. Marge Hall Work Phone: [facility] Start: 04-08-2023 End: 04-08-[address] Teagan Hall Work Phone: [facility] Work Phone: Start: 04-08-2023 End: 04-08-[address] Teagan Hall Work Phone: [facility]-Ultrasound, [facility] Work Phone: Start: 04-08-2023 End: 04-08-2023 Dr. Teagan Hall Work Phone: [facility]-Ultrasound, [facility] Work Phone: Start: 04-07-2023 End: 04-07-[address] Teagan Hall Work Phone: [facility] Work Phone: Start: 04-07-2023 End: 04-07-[address] Teagan Hall Work Phone: [facility] Work Phone: Start: 04-07-2023 End: 04-07-2023 Dr. Teagan Hall Work Phone: [facility] Work Phone: Start: 04-07-2023 End: 04-07-[address] Teagan Hall Work Phone: [facility] Work Phone: Start: 04-07-2023 End: 04-07-2023 Dr. Teagan Hall Work Phone: [facility] Heart [facility] Work Phone: Start: 04-05-2023 End: 04-05-[address] Teagan Hall Work Phone: [facility] Work Phone: Start: 04-05-2023 End: 04-05-[address] Teagan Hall Work Phone: [facility] Work Phone: Start: 04-05-2023 End: 04-05-2023 Dr. Teagan Hall Work Phone: [facility] Work Phone: Start: 04-03-2023 End: 04-03-[address] Teagan Hall Work Phone: [facility] Work Phone: Start: 03-29-2023 End: 03-29-[address] Teagan Hall Work Phone: [facility] Work Phone: Start: 03-29-2023 End: 03-29-2023 Dr. [facility] Work Phone: Start: 03-17-2023 End: 03-17-[address] Teagan Hall Work Phone: [facility] Work Phone: Start: 03-17-2023 End: 03-17-[address] Teagan Hall Work Phone: [facility]-Medical Out Work Phone: Start: 03-17-2023 End: 03-17-2023 Dr. Teagan Hall Work Phone: [facility] Work Phone: Start: 03-04-2023 End: 03-04-[address] [facility] Hall [facility] Work Phone: Start: 03-04-2023 End: 03-04-2023 Dr. Teagan Hall Work Phone: [facility] Work Phone: Start: 02-25-2023 End: 02-25-[address] [facility] Work Phone: Start: 02-25-2023 End: 02-25-2023 Dr. Te[facility] Hall [facility] Work Phone: Start: 02-25-2023 Non-patient / Non-visit Dr. Marge Hall Work Phone: [facility] Start: 02-25-2023 Dr. Teagan orellana Work Phone: [facility] Start: 02-25-2023 Non-patient / Non-visit Dr. Marge Hall Work Phone: [facility] Inpatient Physicians Work Phone: Start: 02-25-2023 Dr. Teagan orellana Work Phone: [facility] Work Phone: Start: 02-24-2023 Non-patient / Non-visit Dr. Marge Hall Work Phone: [facility] Start: 02-24-2023 Dr. Teagan orellana Work Phone: [facility] Start: 02-23-2023 Non-patient / Non-visit Dr. Marge Hall Work Phone: [facility] Work Phone: Start: 02-23-2023 End: 02-25-2023 Evaluation and management of inpatient Dr. Teagan Hall Work Phone: [facility] Work Phone: Start: 02-23-2023 End: 02-25-2023 Dr. Teagan Hall Work Phone: [facility]-Intensive Care Unit Work Phone: Start: 02-22-2023 Non-patient / Non-visit Dr. Marge Hall Work Phone: [facility] Start: 02-22-2023 End: 02-22-[address] Teagan Hall Work Phone: [facility] Work Phone: Start: 02-22-2023 End: 02-22-[address] Teagan Hall Work Phone: [facility] Work Phone: Start: 02-22-2023 End: 02-22-2023 Dr. Teagan Hall Work Phone: [facility] Start: 02-17-2023 End: 02-17-[address] Teagan Hall Work Phone: [facility] Work Phone: Start: 02-17-2023 End: 02-17-[address] Teagan Hall Work Phone: [facility] Out Work Phone: Start: 02-17-2023 End: 02-17-2023 Dr. Teagan Hall Work Phone: [facility] Work Phone: Start: 02-11-2023 End: 02-11-[address] Teagan Hall Work Phone: [facility] Work Phone: Start: 02-11-2023 End: 02-11-2023 Dr. Teagan Hall Work Phone: [facility] Work Phone: Start: 02-08-2023 Non-patient / Non-visit Dr. Marge Hall Work Phone: [facility] Work Phone: Start: 02-08-2023 Dr. Teagan orellana Work Phone: [facility] Work Phone: Start: 02-04-2023 End: 02-04-[address] Teagan Hall Work Phone: [facility] Work Phone: Start: 02-04-2023 End: 02-04-2023 Dr. Teagan Hall Work Phone: [facility] Work Phone: Start: 02-04-2023 End: 02-04-[address] Teagan Hall Work Phone: [facility] Work Phone: Start: 02-04-2023 End: 02-04-2023 Dr. Teagan Hall Work Phone: [facility] Work Phone: Start: 01-27-2023 Non-patient / Non-visit Dr. Marge Hall Work Phone: [facility] Start: 01-27-2023 Dr. Teagan orellana Work Phone: [facility] Start: 01-27-2023 End: 01-27-2023 Emergency department patient [facility] Work [facility]: Start: 01-27-2023 End: 01-27-2023 Dr. Teagan Hall [facility] Work [facility] Start: 01-25-2023 End: 01-25-[address] Teagan Hall Work Phone: [facility] Work Phone: Start: 01-25-2023 End: 01-25-2023 Dr. Teagan Hall Work Phone: [facility] Work Phone: Start: 01-25-2023 End: 01-25-[address] Tegaan Hall Work Phone: [facility] Work Phone: Start: 01-25-2023 End: 01-25-2023 Dr. Teagan Hall Work Phone: [facility] Work Phone: Start: 01-20-2023 End: 01-20-[address] Teagan Hall Work Phone: [facility] Work Phone: Start: 01-20-2023 End: 01-20-[address] [facility] Start: 01-20-2023 End: 01-20-2023 Dr. Teagan Hall [facility] Start: 01-17-2023 End: 01-18-2023 Emergency department patient visit Dr. Teagan Hall Work Phone: [facility]-Emergency Department Work Phone: Start: 01-17-2023 End: 01-18-2023 Dr. Teagan Hall Work Phone: [facility]-Emergency Department Work Phone: Start: 01-15-2023 End: 01-15-[address] Teagan Hall Work Phone: [facility] Work Phone: Start: 01-15-2023 End: 01-15-[address] [facility] Work Phone: Start: 01-15-2023 End: 01-15-2023 Dr. Teagan Hall [facility] Phone[facility] Work Phone: Start: 01-07-2023 End: 01-07-[address] Teagan Hall Work Phone: [facility] Work Phone: Start: 01-07-2023 End: 01-07-2023 Dr. Teagan Hall Work Phone: [facility] Work Phone: Start: 01-06-2023 End: 01-06-2023 Emergency department patient visit Dr. Teagan Hall [facility] Work Phone: Start: 01-06-2023 End: 01-06-2023 Dr. Teagan Hall Work Phone: [facility]Emergency Department Work Phone: Start: 01-05-2023 End: 01-05-[address] Teagan Hall Work Phone: [facility] Work Phone: Start: 01-05-2023 End: 01-05-2023 Dr. Teagan Hall Work Phone: [facility] Work Phone: Start: 01-05-2023 End: 01-05-2023 Office outpatient visit 15 minutes Galo Gonzalez DO Work Phone: [facility] Comment on above: Lung nodule (Primary Dx); Pleural effusion; COLE (dyspnea on exertion) Start: 01-04-2023 Non-patient / Non-visit Dr. Marge Hall Work Phone: [facility] Inpatient Physicians Work Phone: Start: 01-04-2023 Dr. Teagan orellana Work Phone: [facility] Work Phone: Start: 01-03-2023 Non-patient / Non-visit Dr. Marge Hall Work Phone: [facility] Work Phone: Start: 01-03-2023 End: 01-04-2023 Dr. Teagan Hall [facility] Work Phone: Start: 01-03-2023 End: 01-04-2023 Evaluation and management of inpatient Dr. Teagan Hall [facility] Phone[facility] Work Phone: Start: 01-03-[address] Teagan Hall Work Phone: [facility] Work Phone: Start: 01-01-2023 End: 01-05-2023 ambulatory [facility] Start: 12-30-2022 End: 12-30-[address] Teagan Hall Work Phone: [facility] Work Phone: Start: 12-30-2022 End: 12-30-[address] Teagan Hall Work Phone: [facility] Work Phone: Start: 12-30-2022 End: 12-30-2022 Dr. Teagan Hall [facility] Phone[facility] Work Phone: Start: 12-29-2022 End: 12-29-[address] Teagan Hall Work Phone: [facility], [facility] Work Phone: Start: 12-29-[address] Teagan castelan Work Phone: [facility] Start: 12-29-2022 End: 12-29-2022 Dr. Teagan Hall Work Phone: [facility] Start: 12-11-2022 End: 12-11-[address] Teagan Hall Work Phone: [facility] Work Phone: Start: 12-11-2022 End: 12-11-[address] Teagan Hall Work Phone: [facility]-Laboratory Work Phone: Start: 12-11-2022 End: 12-11-2022 Dr. Teagan Hall [facility] Phone[facility]: Start: 12-09-2022 End: 12-09-[address] Teagan Hall [facility] Phone[facility] Work Phone: Start: 12-09-2022 End: 12-09-2022 Dr. Teagan Hall [facility] Phone[facility] Work Phone: Start: 11-12-2022 End: 11-12-2022 Emergency department patient visit Dr. Teagan Hall Work Phone[facility] Work Phone: Start: 11-12-2022 End: 11-12-2022 Dr. Teagan Hall Work Phone: [facility]Emergency Department Work Phone: Start: 11-11-2022 End: 11-11-[address] Teagan Hall Work Phone: [facility] Work Phone: Start: 11-11-2022 End: 11-11-[address] Teagan Hall [facility] Work Phone: Start: 11-11-2022 End: 11-11-2022 Dr. Teagan Hall Work Phone[facility] Work Phone: Start: 10-30-2022 End: 10-30-[address] Teagan Hall Work Phone: [facility] Work Phone: Start: 10-30-2022 End: 10-30-[address] Teagan Hall Work Phone: [facility] Work Phone: Start: 10-30-2022 End: 10-30-2022 Dr. Teagan Hall Work Phone: [facility] Work Phone: Start: 10-14-2022 End: 10-14-[address] Teagan Hall Work Phone: [facility] Work Phone: Start: 10-14-2022 End: 10-14-[address] Teagan Hall Work Phone: [facility]-Medical Out Start: 10-01-2022 End: 10-01-[address] Teagan Hall Work Phone: [facility] Start: 09-30-2022 Telephone encounter Ladi Sharp [facility] Pulmonary and Sleep Medicine Comment on above: Care Coordination (L hadley Nodule Follow Up ) Start: 09-29-2022 End: 09-29-2022 Phys/qhp telephone evaluation 21-30 min Ramesh Vidal MD Work Phone: [facility] Comment on above: Lung mass (Primary D x); History of breast cancer; Rheumatoid arthritis with inflammatory polyarthropathy (HCC) Start: 09-25-2022 End: 09-29-2022 ambulatory JOSEPH. JONAS [facility] Start: 09-22-2022 End: 09-22-2022 ambulatory GALO GONZALEZ [facility] Start: 09-20-2022 End: 09-21-2022 ambulatory TEAGAN HALL [facility] Start: 09-16-2022 End: 09-16-[address] Teagan Hall Work Phone: [facility] Out Start: 09-16-2022 End: 09-16-2022 ambulatory TEAGAN HALL [facility] Start: 09-10-[address] Teagan castelan Work Phone: [facility] Start: 09-10-2022 End: 09-10-[address] Teagan Hall Work Phone: [facility] Start: 08-25-2022 End: 08-25-[address] Teagan Hall Work Phone: [facility], [facility] Start: 08-24-2022 End: 08-24-[address] Teagan Hall Work Phone: [facility] Start: 08-20-2022 End: 08-20-2022 Evaluation and management of inpatient TEAGAN HALL Facility:[facility] Start: 08-19-2022 End: 08-19-2022 Emergency department patient visit Dr. Teagan Hall Work Phone: [facility]Emergency Department Start: 08-19-2022 End: 08-19-[address] Teagan Hall Work Phone: [facility] Work Phone: Start: 08-19-2022 End: 08-19-[address] Teagan Hall Work Phone: [facility] Out Start: 08-14-2022 End: 08-14-[address] Teagan Hall Work Phone: [facility] Work Phone: Start: 08-14-2022 End: 08-14-[address] Teagan Hall Work Phone: [facility] Start: 08-13-2022 End: 08-13-2022 ambulatory MARCUS CHUCHO HEARNMAN Facility:[facility] Start: 08-13-2022 End: 08-13-2022 Patient encounter procedure Marcus Mello DPM Work Phone: [facility] Comment on above: Post-operative state (Primary Dx) Start: 07-22-2022 End: 07-22-[address] Teagan Hall Work Phone: [facility] Work Phone: Start: 07-22-2022 End: 07-22-[address] Teagan Hall Work Phone: [facility] Out Start: 07-09-2022 End: 07-09-2022 ambulatory MARCUS MELLO Facility:[facility] Start: 07-09-2022 End: 07-09-2022 Patient encounter procedure Marcus Mello DPM Work Phone: [facility] Comment on above: Post-operative state (Primary Dx); Wound dehiscence Start: 07-03-2022 End: 07-03-[address] Teagan Hall Work Phone: [facility] Work Phone: Start: 07-03-2022 End: 07-03-[address] Teagan Hall Work Phone: [facility] Start: 07-01-2022 End: 07-01-[address] Teagan Hall Work Phone: [facility] Start: 06-29-2022 Patient encounter procedure [facility] Provider [facility] Start: 06-24-2022 End: 06-24-[address] Teagan Hall Work Phone: [facility] Work Phone: Start: 06-24-2022 End: 06-24-[address] Teagan Hall Work Phone: [facility] Out Start: 06-19-2022 Telephone encounter Ag Orth Work Phone: [facility] Comment on above: Patient Question (At tempted to reach patient to let them know about a voided payment taken at Office Visit 06/18/22. Unable to pay $75 on $200+ balance, transaction was voided. On 06/19 sent out voided reciept to patient. ) Start: 06-18-2022 End: 06-18-2022 ambulatory MARCUS MELLO Facility:[facility] Start: 06-16-2022 Non-patient / Non-visit Dr. Marge Hall Work Phone: [facility] Start: 06-05-2022 End: 06-05-2022 ambulatory MARCUS MELLO Facility:[facility] Start: 06-05-2022 End: 06-05-2022 Patient encounter procedure Marcus Mello DPM Work Phone: [facility] Comment on above: Post-operative state (Primary Dx); History of ankle surgery Start: 05-29-2022 End: 05-29-2022 ambulatory MARCUS MELLO Facility:[facility] Start: 05-29-2022 End: 05-29-2022 Patient encounter procedure Marcus Mello DPM Work Phone: [facility] Comment on above: Post-operative state (Primary Dx) Start: 05-22-2022 End: 05-22-[address] Teagan Hall Work Phone: [facility] Work Phone: Start: 05-22-2022 End: 05-22-[address] Teagan Hall Work Phone: [facility] Start: 05-18-2022 End: 05-18-2022 ambulatory MARCUS MELLO Facility:[facility] Start: 05-05-2022 End: 05-06-2022 ambulatory MARCUS MELLO Facility:[facility] Start: 05-05-2022 Encounter for other [facility]cedural 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 Teagan Hall Work Phone: [facility] Start: 04-16-[address] 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 Teagan Hall Work Phone: [facility] Work Phone: Start: 04-03-2022 End: 04-03-[address] Teagan Hall Work Phone: [facility]Medical Out Start: 04-01-2022 End: 04-01-2022 ambulatory MARCUS MELLO Facility:[facility] Start: 03-18-2022 Telephone encounter Marcus Mello DPM Work Phone: [facility] Comment on above: Orders Start: 03-18-2022 End: 03-18-2022 ambulatory MARCUS MELLO Facility:[facility] Start: 03-18-2022 End: 03-18-2022 Patient encounter procedure Marcus Mello DPM Work Phone: [facility] Comment on above: History of ankle criselda gabbie (Primary Dx); Chronic pain of left ankle; Wound dehiscence; Decreased pedal pulses Start: 03-06-2022 End: 03-06-[address] Teagan Hall Work Phone: [facility] Work Phone: Start: 03-06-2022 End: 03-06-[address] [facility] Start: 02-24-2022 End: 02-24-[address] Teagan Hall Work Phone: [facility] Work Phone: Start: 02-24-2022 End: 02-24-[address] Teagan Hall Work Phone: [facility] Start: 02-09-2022 End: 02-09-[address] Teagan Hall Work Phone: [facility] Work Phone: Start: 02-09-2022 End: 02-09-[address] Teagan Hall Work Phone: [facility] Start: 02-06-2022 End: 02-06-[address] Teagan Hall Work Phone: [facility] Work Phone: Start: 02-06-2022 End: 02-06-[address] Te[facility] Hall [facility] Start: 02-05-2022 Non-patient / Non-visit Dr. Marge Hall Work Phone: [facility] Start: 02-05-2022 End: 02-05-[address] Teagan Hall Work Phone: [facility] Work Phone: Start: 02-05-2022 End: 02-05-[address] Teagan Hall Work Phone: [facility]-Cardiovascul ar Services Start: 01-20-2022 Non-patient / Non-visit Dr. Marge Hall Work Phone: [facility] Start: 01-20-2022 End: 01-20-[address] Teagan Hall Work Phone: [facility] Work Phone: Start: 01-20-2022 End: 01-20-[address] Teagan Hall Work Phone: [facility]Cardiov[facility] Start: 01-09-2022 End: 01-09-[address] Teagan Hall Work Phone: [facility] Work Phone: Start: 01-09-2022 End: 01-09-[address] Teagan Hall Work Phone: [facility]Medical Out Start: 12-24-2021 End: 12-24-[address] Teagan Hall Work Phone: [facility] Start: 12-12-2021 End: 12-12-[address] Teagan Hall [facility] Start: 11-20-2021 End: 11-20-[address] [facility] Start: 11-14-2021 End: 11-14-2021 Patient encounter procedure [facility] Start: 10-17-2021 End: 10-17-2021 [facility] Start: 09-19-2021 End: 09-19-2021 [facility] Start: 08-20-2021 End: 08-20-[address] Teagan Hall [facility] Start: 07-23-2021 End: 07-23-[address] Teagan Hall [facility] Start: 07-03-2021 End: 07-03-[address] Teagan Hall Work Phone: [facility]-Outpatient Breast Imaging Start: 06-25-2021 End: 06-25-[address] Teagan Hall [facility] Start: 05-28-2021 End: 05-28-[address] Teagan Hall [facility] Start: 05-12-2021 End: 05-12-[address] Teagan Hall Work Phone: [facility] Start: 04-30-[address] Teagan Hall [facility] Start: 04-17-[address] Teagan castelan Work Phone: [facility] Start: 04-17-2021 End: 04-17-[address] Teagan Hall Work Phone: [facility] Start: 04-02-[address] Teagan Hall [facility] Start: 12-24-[address] Yann Hall Work Phone: [facility] Start: 10-29-2017 End: 10-29-2017 Ambulatory JOSE LAKHANI Facility:[facility] Start: 08-25-2017 End: 08-25-2017 Ambulatory JOSE LAKHANI Facility:[facility] Start: 07-21-2017 End: 07-21-2017 Ambulatory JOSE LAKHANI Facility:[facility] Start: 06-30-2017 End: 06-30-2017 Ambulatory JOSE LAKHANI Facility:[facility] Start: 06-02-2017 End: 06-02-2017 Ambulatory JOSE LAKHANI Facility:[facility] Start: 05-12-2017 End: 05-12-2017 Ambulatory JOSE LAKHANI Facility:[facility] Start: 05-05-2017 End: 05-05-2017 Ambulatory JOSE MORALESADELA Facility:[facility] Start: 04-17-2017 End: 04-22-2017 Evaluation and management of inpatient Teagan Hall Facility:[facility] Procedures Date Procedure Procedure Detail Performing Clinician Start: 07-23-2024 Urnls dip stick/tabl et reagent auto microscopy Dr. Teagan Hall MD Work Phone: Start: 07-23-[address] Teagan Hall MD Work Phone: Start: 07-23-2024 CT cervical spine wi thout contrast Dr. Teagan Hall MD Work Phone: Start: 07-23-2024 CT of head without contrast Dr. Teagan Hall MD Work Phone: Start: 07-21-2024 X-ray of chest, PA a nd lateral views Dr. Teagan Hall MD Work Phone: Start: 07-04-2024 Acetylcholine recept or measurement Dr. Teagan Hall MD Work Phone: Comment on above: Negative: 0.00 - 0.2 4 Borderline: 0.25 - 0.40 Positive: >0.40Performed at: [address] [id number] Director: Luis Carlos Cerna MD, Phone: [phone] Start: 07-04-2024 X-ray of chest, PA a nd lateral views Dr. Teagan Hall MD Work Phone: Start: 06-14-2024 MRI of brain with contrast Dr. Teagan Hall MD Work Phone: Start: 06-02-2024 Measurement of renal function Dr. Teagan Hall MD Work Phone: Comment on above: GFR Calc Start: 05-01-2024 Evaluation of diagno stic study results Dr. Teagan Hall MD Work Phone: Start: 08-24-2023 Plain chest X-ray Dr. Yann Hall Work Phone: Start: 08-24-2023 Ultrasonic guidance for thoracentesis Dr. Teagan Hall Work Phone: Start: 08-23-2023 Plain chest X-ray Dr. Yann Hall Work Phone: Start: 07-19-[address] Teagan Hall Work Phone: Start: 07-19-[address] Teagan Hall Work Phone: Start: 07-19-2023 Investigation of transfusion reaction Dr. Teagan Hall Work Phone: Start: 07-19-2023 Plain chest X-ray Dr. Yann Hall Work Phone: Start: 07-19-2023 Ultrasonic guidance for thoracentesis Dr. Teagan Hall Work Phone: Start: 07-05-2023 CT of thorax with contrast Dr. Teagan Hall Work Phone: Start: 04-08-2023 Plain chest X-ray Dr. Yann Hall Work Phone: Start: 04-08-2023 Ultrasonic guidance for thoracentesis Dr. Teagan Hall Work Phone: Start: 04-05-2023 Plain chest X-ray Dr. Ynan Hall Work Phone: Start: 02-25-2023 Plain chest X-ray Dr. Yann Hall Work Phone: Start: 02-23-2023 Plain chest X-ray Dr. Yann Hall Work Phone: Start: 02-22-2023 Plain chest X-ray Dr. Yann Hall Work Phone: Start: 02-22-2023 Ultrasonic guidance for thoracentesis Dr. Teagan Hall Work Phone: Start: 02-04-2023 Plain chest X-ray Dr. Yann Hall Work Phone: Start: 01-27-2023 Plain chest X-ray Dr. Yann Hall Work Phone: Start: 01-06-2023 Plain chest X-ray Dr. Yann Hall Work Phone: Start: 01-03-2023 CT of head without contrast Dr. Teagan Hall Work Phone: Start: 01-03-2023 Plain chest X-ray Dr. Yann Hall Work Phone: Start: 12-30-2022 Injection of contras t media for radiography Dr. Teagan Hall Work Phone: Start: 12-29-2022 CT of thorax with contrast Dr. Teagan Hall Work Phone: Start: 12-11-2022 Plain chest X-ray Dr. Yann Hall Work Phone: Start: 11-12-2022 CT of head without contrast Dr. Teagan Hall Work Phone: Start: 11-12-2022 Radiography of sacrococcygeal spine Dr. Teagan Hall Work Phone: Start: 09-08-2022 PET study for locali zation of tumor Dr. Teagan Hall Work Phone: Start: 04-25-2023 Plain chest X-ray Dr. Yann Hall Work Phone: Start: 08-25-2022 Ultrasonic guidance for thoracentesis Dr. Teagan Hall Work Phone: Start: 08-20-2022 Antibody screen MARCUS MELLO Comment on above: Order Comment: Speci men Type: BLOOD SPECIMEN Ordering Facility: [facility] Address: [address] [place], [place] [id number] Performed By: #### 2 [id number] #### [facility] CLIA [id number] [address] [place] [address] [place] Start: 08-19-2022 Plain X-ray of tibia and fibula Dr. Teagan Hall Work Phone: Start: 08-19-2022 CT cervical spine wi thout contrast Dr. Teagan Hall Work Phone: Start: 08-19-2022 CT of chest and abdomen Dr. Teagan Hall Work Phone: Start: 08-19-2022 CT of head without contrast Dr. Teagan Hall Work Phone: Start: 07-03-2022 CT of head without contrast Dr. Teagan Hall Work Phone: Start: 03-18-2022 Radex ankle complete minimum 3 views Marcus Mello DPM Work Phone: Start: 01-20-2022 Radionuclide imaging of perfusion of myocardium under exercise stress Dr. Teagan Hall Work Phone: Start: 07-03-2021 Screening mammograph y of left breast Dr. Teagan Hall Work Phone: Start: 04-12-2020 History of placement of stent for coronary artery disease History of coronary artery stent placement Dr. Teagan Hall Work Phone: Comment on above: 3.00 x 32 Synergy MR FABIANA to mRCA 04/12/20 Plan of Treatment Date Care Activity Detail Author Start: 07-20-2027 DTaP/Tdap/Td Vaccine s (2 - Td or Tdap) DTaP/Tdap/Td Vaccines (2 - Td or Tdap) [facility] Start: 06-14-2024 Venous catheter care management [facility] Start: 01-02-2024 Influenza vaccination Influenz a Vaccine (Season Ended) [facility] Start: 08-24-2023 Patient discharge [facility] Start: 08-24-2023 Vital signs measurements [facility] Start: 08-03-2023 End: 08-03-2023 Telemedicine consultation with patient 08/03/2023 10:30 AM EDT Telemedicine [facility] [address] [place] [id number] Galo Gonzalez DO [address] [place], [place] [id number] [facility] Start: 07-19-2023 Anaerobic microbial culture Anaerobic Culture [facility] Start: 07-19-2023 Microbial culture, b yun fluid [facility] Start: 07-19-2023 Patient discharge [facility] Start: 07-19-2023 Vital signs measurements [facility] Start: 07-05-2023 Venous catheter care management [facility] Start: 06-23-2023 Iv infusion therapy/prophylaxis /dx 1st to 1 hr THER/PROPH/DIAG IV INF INIT [facility] Start: 05-03-2023 Medicare Advantage A nnual Wellness Visit Medicare Advantage Annual Wellness Visit [facility] Start: 04-08-2023 Patient discharge [facility] Start: 04-08-2023 Vital signs measurements [facility] Start: 02-25-2023 Patient discharge [facility] Start: 02-25-2023 XR Chest PA and Lateral [facility] Start: 02-25-[address] [facility] Start: 02-24-2023 Assessment of risk o f venous thromboembolism [facility] Start: 02-24-[address] [facility] Start: 02-24-2023 Elevation of head of bed [facility] Start: 02-24-2023 Taking patient vital signs [facility] Start: 02-24-[address] [facility] Start: 02-24-[address] [facility] Start: 02-24-2023 Catheterization of vein [facility] Start: 02-24-2023 Notification of physician [facility] Start: 02-24-[address] [facility] Start: 02-23-2023 Application of intermittent pneumatic compression device [facility] Start: 02-23-2023 Following clinical p athway protocol [facility] Start: 02-23-2023 Assessment of risk o f venous thromboembolism [facility] Start: 02-23-2023 Continuous pulse oximetry [facility] Start: 02-23-2023 Inhalation therapy procedure [facility] Start: 02-23-2023 Insertion of cathete r into peripheral vein [facility] Start: 02-23-2023 Measuring intake and output [facility] Start: 02-23-2023 Oxygen therapy [facility] Start: 02-23-2023 Providing care accor ding to standard [facility] Start: 02-23-2023 Referral to anatomy teacher [facility] Start: 02-23-2023 Vital signs measurements [facility] Start: 02-23-[address] [facility] Start: 02-23-2023 Verification routine [facility] Start: 02-23-2023 Admission procedure [facility] Start: 02-23-2023 Hospital admission, emergency, from emergency room, medical nature [facility] Start: 02-23-[address] [facility] Start: 02-23-2023 Patient referral to dietitian [facility] Start: 02-22-2023 Thoracentesis needle /cath pleura w/imaging [facility] Start: 02-22-2023 Patient discharge [facility] Start: 02-22-2023 Vital signs measurements [facility] Start: 02-17-2023 Iv infusion therapy/prophylaxis /dx 1st to 1 hr [facility] Start: 01-20-2023 Iv infusion therapy/prophylaxis /dx 1st to 1 hr THER/PROPH/DIAG IV INF INIT [facility] Start: 01-06-[address] [facility] Start: 01-05-2023 End: 01-05-2023 Patient encounter procedure [facility] Comment on above: Arrived Start: 01-04-2023 Patient discharge [facility] Start: 01-03-2023 Following clinical p athway protocol [facility] Start: 01-03-2023 Ambulation without limitation [facility] Start: 01-03-2023 Assessment of risk o f venous thromboembolism [facility] Start: 01-03-2023 Insertion of cathete r into peripheral vein [facility] Start: 01-03-2023 Measuring intake and output [facility] Start: 01-03-2023 Providing care accor ding to standard [facility] Start: 01-03-[address] [facility] Start: 01-03-2023 Verification routine [facility] Start: 01-03-2023 Admission procedure [facility] Start: 01-03-2023 Brain natriuretic pe ptide measurement [facility] Start: 01-01-2023 COVID-19 Vaccine ( season) COVID-19 Vaccine () [facility] Start: 01-01-2023 Influenza vaccination Influenza Vacc ine (#1) [facility] Start: 12-30-2022 Venous catheter care management [facility] Start: 12-29-2022 Venous catheter care management [facility] Start: 12-09-2022 Iv infusion therapy/prophylaxis /dx 1st to 1 hr THER/PROPH/DIAG IV INF [facility] Start: 10-14-2022 Iv infusion therapy/prophylaxis /dx 1st to 1 hr THER/PROPH/DIAG IV INF [facility] Start: 09-11-2022 Patient referral [facility] Work Phone: Start: 08-25-2022 Patient discharge [facility] Start: 08-25-2022 Vital signs measurements [facility] Start: 08-19-2022 Iv infusion therapy/prophylaxis /dx 1st to 1 hr THER/PROPH/DIAG IV INF [facility] Start: 07-22-2022 Iv infusion therapy/prophylaxis /dx 1st to 1 hr THER/PROPH/DIAG IV INF [facility] Start: 07-03-2022 Venous catheter care management [facility] Start: 05-03-2022 ADVANCE DIRECTIVE DISCUSSION ADVANCE DIRECTIVE DISCUSSION [facility] Start: 05-03-2022 DEPRESSION ASSESSMENT DEPRESSION ASS ESSMENT [facility] Start: 04-03-2022 Iv infusion therapy/prophylaxis /dx 1st to 1 hr THER/PROPH/DIAG IV INF [facility] Start: 03-18-2022 End: 05-18-2022 C reactive protein [Mass/volume] in Serum or Plasma C-REACTIVE PROTEIN (CRP) Lab Routine History of ankle surgery Chronic pain of left ankle Wound dehiscence Expected: 03/18/2022, Expires: 05/18/2022 [facility] Work Phone: Comment on above: Expected: 03/18/2022 , Expires: 05/18/2022 Start: 03-18-2022 End: 05-18-2022 CBC W Auto Differential panel - Blood CBC + DIFF Lab Routine History of ankle surgery Wound dehiscence Expected: 03/18/2022, Expires: 05/18/2022 [facility] Work Phone: Comment on above: Expected: 03/18/2022 , Expires: 05/18/2022 Start: 03-18-2022 End: 05-18-2022 Erythrocyte sedimentation rate SED RATE WESTERGREN Lab Routine History of ankle surgery Chronic pain of left ankle Wound dehiscence Expected: 03/18/2022, Expires: 05/18/2022 [facility] Work Phone: Comment on above: Expected: 03/18/2022 , Expires: 05/18/2022 Start: 03-06-2022 Iv infusion therapy/prophylaxis /dx 1st to 1 hr THER/PROPH/DIAG IV INF [facility] Work Phone: Start: 02-06-2022 Iv infusion therapy/prophylaxis /dx 1st to 1 hr THER/PROPH/DIAG IV INF [facility] Work Phone: Start: 11-04-2021 COVID-19 VACCINE (5 - Booster for Moderna series) COVID-19 VACCINE (5 - Booster for Moderna series) [facility] Start: 09-19-2021 Iv infusion therapy/prophylaxis /dx 1st to 1 hr THER/PROPH/DIAG IV INF [facility] Work Phone: Start: 05-28-2021 Iv infusion therapy/prophylaxis /dx 1st to 1 hr [facility] Work Phone: Start: 05-03-2021 ADVANCE DIRECTIVE DISCUSSION ADVANCE DIRECTIVE DISCUSSION [facility] Start: 05-03-2021 DEPRESSION ASSESSMENT DEPRESSION ASS ESSMENT [facility] Start: 04-22-2020 DIABETES SCREEN DIABETES SCREEN [facility] Start: 04-06-[address] [facility] Start: 2001 BONE DENSITY BONE DENSITY [facility] Start: 1996 RSV Immunization age d 60 or older (1 - 1-dose 60+ series) RSV Immunization aged 60 or older (1 - 1-dose 60+ series) [facility] Start: 1986 Zoster Vaccines (1 of 2) Zoste r Vaccines (1 of 2) [facility] Start: 08-29-1955 SHINGRIX VACCINE (1 of 2) GOMEZ GRIX VACCINE (1 of 2) [facility] Start: 08-29-1955 Urine microalbumin profile DTA P,TDAP,TD (1 - Tdap) [facility] Start: 1948 Depression Screening Depression Scre ening [facility] Start: 1942 PNEUMOCOCCAL: 65+ (1 - PCV) PNEUMOCOCCAL: 65+ (1 - PCV) [facility] Start: 1936 Hepatitis B Vaccines (1 of 3 - 3-dose series) Hepatitis B Vaccines (1 of 3 - 3-dose series) [facility] Start: 1936 Lipid panel Lipid Panel [facility] Start: 1936 Medicare Advantage A nnual Wellness Visit (AWV) Medicare Advantage Annual Wellness Visit (AWV) [facility] Start: 1936 Screening for osteoporosis Bone Dens ity Scan [facility] Start: 1936 Thyroid stimulating hormone measurement TSH Level [facility] Blood chemistry [facility] Cancer Ag 125 [Units/volume] in Serum or Plasma [facility] Cancer Ag 15-3 [Pres ence] in Serum or Plasma [facility] Cancer Ag 15-3 [Pres ence] in Serum or Plasma [facility] Cancer Ag 27-29 [Pre sence] in Serum or Plasma [facility] Carcinoembryonic Ag [Mass/volume] in Serum or Plasma [facility] Carcinoembryonic Ag [Mass/volume] in Serum or Plasma [facility] Cardioversion [facility] CBC W Auto Different ial panel - Blood [facility] CBC W Auto Different ial panel - Blood [facility] CBC W Auto Different ial panel - Blood [facility] Cell count and Differential panel - Body fluid [facility] CT Chest W contrast IV [facility] Exercise tolerance test [facility] In-vitro immunologic test [facility] Work Phone: In-vitro immunologic test [facility] Lactate dehydrogenas e [Enzymatic activity/volume] in Body fluid by Pyruvate to lactate reaction [facility] Lactate dehydrogenas e measurement [facility] Lactate dehydrogenas e measurement [facility] Lactic acid measurement [facility] Measurement of respi ratory function [facility] Microbial culture, b yun fluid [facility] Microscopic observat ion [Identifier] in Body fluid by Cyto stain [facility] Mycobacterium tuberc ulosis tuberculin stimulated gamma interferon [Presence] in Blood [facility] Work Phone: Mycobacterium tuberc ulosis tuberculin stimulated gamma interferon [Presence] in Blood [facility] End: 04-17-2023 Non-invasive physiologic study extremity 3 levls US ARTERIAL PVR LOWER Radiology Routine Wound dehiscence Decreased pedal pulses 1 Occurrences starting 03/18/2022 until 04/17/2023 [facility] Work Phone: Comment on above: 1 Occurrences starti ng 03/18/2022 until 04/17/2023 Partial thromboplast in time, activated [facility] Patient Education [facility] Work Phone: Patient referral [facility] Work Phone: Protein [Mass/volume ] in Body fluid [facility] Protein [Mass/volume ] in Serum or Plasma [facility] PT Unspecified body region [facility] Radionuclide imaging of perfusion of myocardium under exercise stress [facility] Work Phone: Ultrasonic guidance for thoracentesis [facility] US Carotid arteries [facility] Work Phone: US Heart [facility] Work Phone: US Heart [facility] XR Chest PA and Lateral [facility] [place] [facility] Immunization Date Immunization Notes Care Provider Adri[facility] 01-30-2022 influenza virus vaccine, unspecified formulation Ladi Sharp [facility] 01-23-[address] Teagan Hall Work Phone: [facility] 07-19-2017 tetanus toxoid, redu ching diphtheria toxoid, and acellular pertussis vaccine, adsorbed Dr. Teagan Hall Work Phone: [facility] 01-09-[address] Teagan Hall Work Phone: [facility] 01-10-[address] Teagan Hall Work Phone: [facility] Work Phone: 01-10-2007 pneumococcal vaccine , unspecified formulation Dr. Teagan Hall Work Phone: [facility] Payers Date Payer Category Payer Unknown [id number] 2021 Medicare [id number] 2016 Self-pay [id number] 2012 Medicare [id number] 2012 Private Health Insurance 101 [id number] Unknown [id number] Unknown [id number] 2.16.8 [id number] Unknown [id number] 2.16.8 [id number] Unknown [id number] 2.16.8 [id number] Unknown [id number] 2.16.8 [id number] Unknown [id number] 2.16.8 [id number] Unknown [id number] 2.16.8 [id number] Unknown [id number] 2.16.8 [id number] Unknown [id number] 2.16.8 [id number] Unknown [id number] 2.16.8 40.1.551192.3.579.2.462 Unknown [id number] 2.16.8 [id number] Unknown [id number] 2.16.8 40.1.546291.3.579.2.462 Unknown [id number] 2.16.8 [id number] Unknown [id number] 2.16.8 40.1.662727.3.579.2.462 Unknown [id number] 2.16.8 40.1.010880.3.579.2.462 Unknown [id number] 2.16.8 40.1.648910.3.579.2.462 Unknown [id number] 2.16.8 40.1.724652.3.579.2.462 Unknown [id number] 2.16.8 40.1.983662.3.579.2.462 Unknown [id number] 2.16.8 [id number] Unknown [id number] 2.16.8 40.1.698425.3.579.2.462 Unknown [id number] 2.16.8 40.1.899696.3.579.2.462 Unknown [id number] 2.16.8 40.1.852263.3.579.2.462 Unknown [id number] 2.16.8 40.1.371226.3.579.2.462 Unknown [id number] 2.16.8 [id number] Unknown [id number] 2.16.8 [id number] Unknown [id number] 2.16.8 [id number] Unknown [id number] 2.16.8 [id number] Social History Date Type Detail Facility Start: 05-12-2021 End: 07-16-2023 Tobacco smoking status LAIS Unknown if ever smoked [facility] Start: 09-23-[address] [facility] Start: 05-15-[address] [facility] Start: 04-18-2020 Non-smoker [facility] Start: 1935 Sex Assigned At Female [facility] Start: 03-18-2022 End: 07-23-2024 Tobacco smoking status LAIS Never smoked tobacco [facility] Start: 03-18-2022 End: 09-16-2022 Tobacco use and exposure Smokeless tobacco non-user [facility] Start: 03-18-2022 End: 08-17-2022 Alcohol intake Current non-drinker of alcohol (finding) [facility] Start: 1935 Sex Assigned At Not on file [facility] Start: 03-08-2022 End: 09-22-2022 Exposure to SARS-CoV-2 (event) Not sure [facility] Start: 09-23-2022 End: 08-03-2023 Alcohol intake Lifetime non-drinker (finding) [facility] Start: 09-22-2022 History SDOH IPV Fear 2 S [facility] Start: 09-22-2022 End: 08-03-2023 History of Social function [facility] Start: 09-22-2022 End: 08-03-2023 Humiliation, Afraid, Rape, and Kick questionnaire [HARK] [facility] Within the last year , have you been afraid of your partner or ex-partner? No [facility] Start: 07-18-2024 End: 08-01-2024 Sex Female (finding) [facility] Medical Equipment Procedure Code Equipment Code Equipment Origin al Text Equipment Identifier Dates ORIF, ankle AUGMENT INJECTABLE FDA Start : 10-28-2018 ORIF, ankle BONE,CRUSHED CANCELLOUS 15CC FDA Start: 10-28-2018 ORIF, ankle FIBULOCK IMPLANT SYSTEM FDA Start: 10-28-2018 ORIF, ankle FIBULOCK NAIL FDA Start: 10-28-2018 ORIF, ankle LOW-PROFILE NONLOCKING SCREW FDA Start: 10-28-2018 ORIF, ankle LOW-PROFILE SCREW FDA Start: 10-28-2018 ORIF, ankle LOW-PROFILE SCREW FDA Start: 10-28-2018 ORIF, ankle MINI IGNITE POWER MIX FDA St art: 10-28-2018 ORIF, ankle syndesmosis tigh trope implant FDA Start: 10-28-2018 ORIF, ankle AUGMENT INJECTABLE FDA Start : 10-28-2018 ORIF, ankle BONE,CRUSHED CANCELLOUS 15CC FDA Start: 10-28-2018 ORIF, ankle FIBULOCK IMPLANT SYSTEM FDA Start: 10-28-2018 ORIF, ankle FIBULOCK NAIL FDA Start: 10-28-2018 ORIF, ankle LOW-PROFILE NONLOCKING SCREW FDA Start: 10-28-2018 ORIF, ankle LOW-PROFILE SCREW FDA Start: 10-28-2018 ORIF, ankle LOW-PROFILE SCREW FDA Start: 10-28-2018 ORIF, ankle MINI IGNITE POWER MIX FDA St art: 10-28-2018 ORIF, ankle syndesmosis tigh trope implant FDA Start: 10-28-2018 ORIF, ankle AUGMENT INJECTABLE FDA Start : 10-28-2018 ORIF, ankle BONE,CRUSHED CANCELLOUS 15CC FDA Start: 10-28-2018 ORIF, ankle FIBULOCK IMPLANT SYSTEM FDA Start: 10-28-2018 ORIF, ankle FIBULOCK NAIL FDA Start: 10-28-2018 ORIF, ankle LOW-PROFILE NONLOCKING SCREW FDA Start: 10-28-2018 ORIF, ankle LOW-PROFILE SCREW FDA Start: 10-28-2018 ORIF, ankle LOW-PROFILE SCREW FDA Start: 10-28-2018 ORIF, ankle MINI IGNITE POWER MIX FDA St art: 10-28-2018 ORIF, ankle syndesmosis tigh trope implant FDA Start: 10-28-2018 ORIF, ankle AUGMENT INJECTABLE FDA Start : 10-28-2018 ORIF, ankle BONE,CRUSHED CANCELLOUS 15CC FDA Start: 10-28-2018 ORIF, ankle FIBULOCK IMPLANT SYSTEM FDA Start: 10-28-2018 ORIF, ankle FIBULOCK NAIL FDA Start: 10-28-2018 ORIF, ankle LOW-PROFILE NONLOCKING SCREW FDA Start: 10-28-2018 ORIF, ankle LOW-PROFILE SCREW FDA Start: 10-28-2018 ORIF, ankle LOW-PROFILE SCREW FDA Start: 10-28-2018 ORIF, ankle MINI IGNITE POWER MIX FDA St art: 10-28-2018 ORIF, ankle syndesmosis tigh trope implant FDA Start: 10-28-2018 ORIF, ankle AUGMENT INJECTABLE FDA Start : 10-28-2018 ORIF, ankle BONE,CRUSHED CANCELLOUS 15CC FDA Start: 10-28-2018 ORIF, ankle FIBULOCK IMPLANT SYSTEM FDA Start: 10-28-2018 ORIF, ankle FIBULOCK NAIL FDA Start: 10-28-2018 ORIF, ankle LOW-PROFILE NONLOCKING SCREW FDA Start: 10-28-2018 ORIF, ankle LOW-PROFILE SCREW FDA Start: 10-28-2018 ORIF, ankle LOW-PROFILE SCREW FDA Start: 10-28-2018 ORIF, ankle MINI IGNITE POWER MIX FDA St art: 10-28-2018 ORIF, ankle syndesmosis tigh trope implant FDA Start: 10-28-2018 ORIF, ankle AUGMENT INJECTABLE FDA Start : 10-28-2018 ORIF, ankle BONE,CRUSHED CANCELLOUS 15CC FDA Start: 10-28-2018 ORIF, ankle FIBULOCK IMPLANT SYSTEM FDA Start: 10-28-2018 ORIF, ankle FIBULOCK NAIL FDA Start: 10-28-2018 ORIF, ankle LOW-PROFILE NONLOCKING SCREW FDA Start: 10-28-2018 ORIF, ankle LOW-PROFILE SCREW FDA Start: 10-28-2018 ORIF, ankle LOW-PROFILE SCREW FDA Start: 10-28-2018 ORIF, ankle MINI IGNITE POWER MIX FDA St art: 10-28-2018 ORIF, ankle syndesmosis tigh trope implant FDA Start: 10-28-2018 ORIF, ankle AUGMENT INJECTABLE FDA Start : 10-28-2018 ORIF, ankle BONE,CRUSHED CANCELLOUS 15CC FDA Start: 10-28-2018 ORIF, ankle FIBULOCK IMPLANT SYSTEM FDA Start: 10-28-2018 ORIF, ankle FIBULOCK NAIL FDA Start: 10-28-2018 ORIF, ankle LOW-PROFILE NONLOCKING SCREW FDA Start: 10-28-2018 ORIF, ankle LOW-PROFILE SCREW FDA Start: 10-28-2018 ORIF, ankle LOW-PROFILE SCREW FDA Start: 10-28-2018 ORIF, ankle MINI IGNITE POWER MIX FDA St art: 10-28-2018 ORIF, ankle syndesmosis tigh trope implant FDA Start: 10-28-2018 ORIF, ankle AUGMENT INJECTABLE FDA Start : 10-28-2018 ORIF, ankle BONE,CRUSHED CANCELLOUS 15CC FDA Start: 10-28-2018 ORIF, ankle FIBULOCK IMPLANT SYSTEM FDA Start: 10-28-2018 ORIF, ankle FIBULOCK NAIL FDA Start: 10-28-2018 ORIF, ankle LOW-PROFILE NONLOCKING SCREW FDA Start: 10-28-2018 ORIF, ankle LOW-PROFILE SCREW FDA Start: 10-28-2018 ORIF, ankle LOW-PROFILE SCREW FDA Start: 10-28-2018 ORIF, ankle MINI IGNITE POWER MIX FDA St art: 10-28-2018 ORIF, ankle syndesmosis tigh trope implant FDA Start: 10-28-2018 ORIF, ankle AUGMENT INJECTABLE FDA Start : 10-28-2018 ORIF, ankle BONE,CRUSHED CANCELLOUS 15CC FDA Start: 10-28-2018 ORIF, ankle FIBULOCK IMPLANT SYSTEM FDA Start: 10-28-2018 ORIF, ankle FIBULOCK NAIL FDA Start: 10-28-2018 ORIF, ankle LOW-PROFILE NONLOCKING SCREW FDA Start: 10-28-2018 ORIF, ankle LOW-PROFILE SCREW FDA Start: 10-28-2018 ORIF, ankle LOW-PROFILE SCREW FDA Start: 10-28-2018 ORIF, ankle MINI IGNITE POWER MIX FDA St art: 10-28-2018 ORIF, ankle syndesmosis tigh trope implant FDA Start: 10-28-2018 ORIF, ankle AUGMENT INJECTABLE FDA Start : 10-28-2018 ORIF, ankle BONE,CRUSHED CANCELLOUS 15CC FDA Start: 10-28-2018 ORIF, ankle FIBULOCK IMPLANT SYSTEM FDA Start: 10-28-2018 ORIF, ankle FIBULOCK NAIL FDA Start: 10-28-2018 ORIF, ankle LOW-PROFILE NONLOCKING SCREW FDA Start: 10-28-2018 ORIF, ankle LOW-PROFILE SCREW FDA Start: 10-28-2018 ORIF, ankle LOW-PROFILE SCREW FDA Start: 10-28-2018 ORIF, ankle MINI IGNITE POWER MIX FDA St art: 10-28-2018 ORIF, ankle syndesmosis tigh trope implant FDA Start: 10-28-2018 ORIF, ankle AUGMENT INJECTABLE FDA Start : 10-28-2018 ORIF, ankle BONE,CRUSHED CANCELLOUS 15CC FDA Start: 10-28-2018 ORIF, ankle FIBULOCK IMPLANT SYSTEM FDA Start: 10-28-2018 ORIF, ankle FIBULOCK NAIL FDA Start: 10-28-2018 ORIF, ankle LOW-PROFILE NONLOCKING SCREW FDA Start: 10-28-2018 ORIF, ankle LOW-PROFILE SCREW FDA Start: 10-28-2018 ORIF, ankle LOW-PROFILE SCREW FDA Start: 10-28-2018 ORIF, ankle MINI IGNITE POWER MIX FDA St art: 10-28-2018 ORIF, ankle syndesmosis tigh trope implant FDA Start: 10-28-2018 ORIF, ankle AUGMENT INJECTABLE FDA Start : 10-28-2018 ORIF, ankle BONE,CRUSHED CANCELLOUS 15CC FDA Start: 10-28-2018 ORIF, ankle FIBULOCK IMPLANT SYSTEM FDA Start: 10-28-2018 ORIF, ankle FIBULOCK NAIL FDA Start: 10-28-2018 ORIF, ankle LOW-PROFILE NONLOCKING SCREW FDA Start: 10-28-2018 ORIF, ankle LOW-PROFILE SCREW FDA Start: 10-28-2018 ORIF, ankle LOW-PROFILE SCREW FDA Start: 10-28-2018 ORIF, ankle MINI IGNITE POWER MIX FDA St art: 10-28-2018 ORIF, ankle syndesmosis tigh trope implant FDA Start: 10-28-2018 ORIF, ankle AUGMENT INJECTABLE FDA Start : 10-28-2018 ORIF, ankle BONE,CRUSHED CANCELLOUS 15CC FDA Start: 10-28-2018 ORIF, ankle FIBULOCK IMPLANT SYSTEM FDA Start: 10-28-2018 ORIF, ankle FIBULOCK NAIL FDA Start: 10-28-2018 ORIF, ankle LOW-PROFILE NONLOCKING SCREW FDA Start: 10-28-2018 ORIF, ankle LOW-PROFILE SCREW FDA Start: 10-28-2018 ORIF, ankle LOW-PROFILE SCREW FDA Start: 10-28-2018 ORIF, ankle MINI IGNITE POWER MIX FDA St art: 10-28-2018 ORIF, ankle syndesmosis tigh trope implant FDA Start: 10-28-2018 ORIF, ankle AUGMENT INJECTABLE FDA Start : 10-28-2018 ORIF, ankle BONE,CRUSHED CANCELLOUS 15CC FDA Start: 10-28-2018 ORIF, ankle FIBULOCK IMPLANT SYSTEM FDA Start: 10-28-2018 ORIF, ankle FIBULOCK NAIL FDA Start: 10-28-2018 ORIF, ankle LOW-PROFILE NONLOCKING SCREW FDA Start: 10-28-2018 ORIF, ankle LOW-PROFILE SCREW FDA Start: 10-28-2018 ORIF, ankle LOW-PROFILE SCREW FDA Start: 10-28-2018 ORIF, ankle MINI IGNITE POWER MIX FDA St art: 10-28-2018 ORIF, ankle syndesmosis tigh trope implant FDA Start: 10-28-2018 ORIF, ankle AUGMENT INJECTABLE FDA Start : 10-28-2018 ORIF, ankle BONE,CRUSHED CANCELLOUS 15CC FDA Start: 10-28-2018 ORIF, ankle FIBULOCK IMPLANT SYSTEM FDA Start: 10-28-2018 ORIF, ankle FIBULOCK NAIL FDA Start: 10-28-2018 ORIF, ankle LOW-PROFILE NONLOCKING SCREW FDA Start: 10-28-2018 ORIF, ankle LOW-PROFILE SCREW FDA Start: 10-28-2018 ORIF, ankle LOW-PROFILE SCREW FDA Start: 10-28-2018 ORIF, ankle MINI IGNITE POWER MIX FDA St art: 10-28-2018 ORIF, ankle syndesmosis tigh trope implant FDA Start: 10-28-2018 ORIF, ankle AUGMENT INJECTABLE FDA Start : 10-28-2018 ORIF, ankle BONE,CRUSHED CANCELLOUS 15CC FDA Start: 10-28-2018 ORIF, ankle FIBULOCK IMPLANT SYSTEM FDA Start: 10-28-2018 ORIF, ankle FIBULOCK NAIL FDA Start: 10-28-2018 ORIF, ankle LOW-PROFILE NONLOCKING SCREW FDA Start: 10-28-2018 ORIF, ankle LOW-PROFILE SCREW FDA Start: 10-28-2018 ORIF, ankle LOW-PROFILE SCREW FDA Start: 10-28-2018 ORIF, ankle MINI IGNITE POWER MIX FDA St art: 10-28-2018 ORIF, ankle syndesmosis tigh trope implant FDA Start: 10-28-2018 ORIF, ankle AUGMENT INJECTABLE FDA Start : 10-28-2018 ORIF, ankle BONE,CRUSHED CANCELLOUS 15CC FDA Start: 10-28-2018 ORIF, ankle FIBULOCK IMPLANT SYSTEM FDA Start: 10-28-2018 ORIF, ankle FIBULOCK NAIL FDA Start: 10-28-2018 ORIF, ankle LOW-PROFILE NONLOCKING SCREW FDA Start: 10-28-2018 ORIF, ankle LOW-PROFILE SCREW FDA Start: 10-28-2018 ORIF, ankle LOW-PROFILE SCREW FDA Start: 10-28-2018 ORIF, ankle MINI IGNITE POWER MIX FDA St art: 10-28-2018 ORIF, ankle syndesmosis tigh trope implant FDA Start: 10-28-2018 ORIF, ankle AUGMENT INJECTABLE FDA Start : 10-28-2018 ORIF, ankle BONE,CRUSHED CANCELLOUS 15CC FDA Start: 10-28-2018 ORIF, ankle FIBULOCK IMPLANT SYSTEM FDA Start: 10-28-2018 ORIF, ankle FIBULOCK NAIL FDA Start: 10-28-2018 ORIF, ankle LOW-PROFILE NONLOCKING SCREW FDA Start: 10-28-2018 ORIF, ankle LOW-PROFILE SCREW FDA Start: 10-28-2018 ORIF, ankle LOW-PROFILE SCREW FDA Start: 10-28-2018 ORIF, ankle MINI IGNITE POWER MIX FDA St art: 10-28-2018 ORIF, ankle syndesmosis tigh trope implant FDA Start: 10-28-2018 ORIF, ankle AUGMENT INJECTABLE FDA Start : 10-28-2018 ORIF, ankle BONE,CRUSHED CANCELLOUS 15CC FDA Start: 10-28-2018 ORIF, ankle FIBULOCK IMPLANT SYSTEM FDA Start: 10-28-2018 ORIF, ankle FIBULOCK NAIL FDA Start: 10-28-2018 ORIF, ankle LOW-PROFILE NONLOCKING SCREW FDA Start: 10-28-2018 ORIF, ankle LOW-PROFILE SCREW FDA Start: 10-28-2018 ORIF, ankle LOW-PROFILE SCREW FDA Start: 10-28-2018 ORIF, ankle MINI IGNITE POWER MIX FDA St art: 10-28-2018 ORIF, ankle syndesmosis tigh trope implant FDA Start: 10-28-2018 ORIF, ankle AUGMENT INJECTABLE FDA Start : 10-28-2018 ORIF, ankle BONE,CRUSHED CANCELLOUS 15CC FDA Start: 10-28-2018 ORIF, ankle FIBULOCK IMPLANT SYSTEM FDA Start: 10-28-2018 ORIF, ankle FIBULOCK NAIL FDA Start: 10-28-2018 ORIF, ankle LOW-PROFILE NONLOCKING SCREW FDA Start: 10-28-2018 ORIF, ankle LOW-PROFILE SCREW FDA Start: 10-28-2018 ORIF, ankle LOW-PROFILE SCREW FDA Start: 10-28-2018 ORIF, ankle MINI IGNITE POWER MIX FDA St art: 10-28-2018 ORIF, ankle syndesmosis tigh trope implant FDA Start: 10-28-2018 ORIF, ankle AUGMENT INJECTABLE FDA Start : 10-28-2018 ORIF, ankle BONE,CRUSHED CANCELLOUS 15CC FDA Start: 10-28-2018 ORIF, ankle FIBULOCK IMPLANT SYSTEM FDA Start: 10-28-2018 ORIF, ankle FIBULOCK NAIL FDA Start: 10-28-2018 ORIF, ankle LOW-PROFILE NONLOCKING SCREW FDA Start: 10-28-2018 ORIF, ankle LOW-PROFILE SCREW FDA Start: 10-28-2018 ORIF, ankle LOW-PROFILE SCREW FDA Start: 10-28-2018 ORIF, ankle MINI IGNITE POWER MIX FDA St art: 10-28-2018 ORIF, ankle syndesmosis tigh trope implant FDA Start: 10-28-2018 ORIF, ankle AUGMENT INJECTABLE FDA Start : 10-28-2018 ORIF, ankle BONE,CRUSHED CANCELLOUS 15CC FDA Start: 10-28-2018 ORIF, ankle FIBULOCK IMPLANT SYSTEM FDA Start: 10-28-2018 ORIF, ankle FIBULOCK NAIL FDA Start: 10-28-2018 ORIF, ankle LOW-PROFILE NONLOCKING SCREW FDA Start: 10-28-2018 ORIF, ankle LOW-PROFILE SCREW FDA Start: 10-28-2018 ORIF, ankle LOW-PROFILE SCREW FDA Start: 10-28-2018 ORIF, ankle MINI IGNITE POWER MIX FDA St art: 10-28-2018 ORIF, ankle syndesmosis tigh trope implant FDA Start: 10-28-2018 ORIF, ankle AUGMENT INJECTABLE FDA Start : 10-28-2018 ORIF, ankle BONE,CRUSHED CANCELLOUS 15CC FDA Start: 10-28-2018 ORIF, ankle FIBULOCK IMPLANT SYSTEM FDA Start: 10-28-2018 ORIF, ankle FIBULOCK NAIL FDA Start: 10-28-2018 ORIF, ankle LOW-PROFILE NONLOCKING SCREW FDA Start: 10-28-2018 ORIF, ankle LOW-PROFILE SCREW FDA Start: 10-28-2018 ORIF, ankle LOW-PROFILE SCREW FDA Start: 10-28-2018 ORIF, ankle MINI IGNITE POWER MIX FDA St art: 10-28-2018 ORIF, ankle syndesmosis tigh trope implant FDA Start: 10-28-2018 ORIF, ankle AUGMENT INJECTABLE FDA Start : 10-28-2018 ORIF, ankle BONE,CRUSHED CANCELLOUS 15CC FDA Start: 10-28-2018 ORIF, ankle FIBULOCK IMPLANT SYSTEM FDA Start: 10-28-2018 ORIF, ankle FIBULOCK NAIL FDA Start: 10-28-2018 ORIF, ankle LOW-PROFILE NONLOCKING SCREW FDA Start: 10-28-2018 ORIF, ankle LOW-PROFILE SCREW FDA Start: 10-28-2018 ORIF, ankle LOW-PROFILE SCREW FDA Start: 10-28-2018 ORIF, ankle MINI IGNITE POWER MIX FDA St art: 10-28-2018 ORIF, ankle syndesmosis tigh trope implant FDA Start: 10-28-2018 ORIF, ankle AUGMENT INJECTABLE FDA Start : 10-28-2018 ORIF, ankle BONE,CRUSHED CANCELLOUS 15CC FDA Start: 10-28-2018 ORIF, ankle FIBULOCK IMPLANT SYSTEM FDA Start: 10-28-2018 ORIF, ankle FIBULOCK NAIL FDA Start: 10-28-2018 ORIF, ankle LOW-PROFILE NONLOCKING SCREW FDA Start: 10-28-2018 ORIF, ankle LOW-PROFILE SCREW FDA Start: 10-28-2018 ORIF, ankle LOW-PROFILE SCREW FDA Start: 10-28-2018 ORIF, ankle MINI IGNITE POWER MIX FDA St art: 10-28-2018 ORIF, ankle syndesmosis tigh trope implant FDA Start: 10-28-2018 ORIF, ankle AUGMENT INJECTABLE FDA Start : 10-28-2018 ORIF, ankle BONE,CRUSHED CANCELLOUS 15CC FDA Start: 10-28-2018 ORIF, ankle FIBULOCK IMPLANT SYSTEM FDA Start: 10-28-2018 ORIF, ankle FIBULOCK NAIL FDA Start: 10-28-2018 ORIF, ankle LOW-PROFILE NONLOCKING SCREW FDA Start: 10-28-2018 ORIF, ankle LOW-PROFILE SCREW FDA Start: 10-28-2018 ORIF, ankle LOW-PROFILE SCREW FDA Start: 10-28-2018 ORIF, ankle MINI IGNITE POWER MIX FDA St art: 10-28-2018 ORIF, ankle syndesmosis tigh trope implant FDA Start: 10-28-2018 ORIF, ankle AUGMENT INJECTABLE FDA Start : 10-28-2018 ORIF, ankle BONE,CRUSHED CANCELLOUS 15CC FDA Start: 10-28-2018 ORIF, ankle FIBULOCK IMPLANT SYSTEM FDA Start: 10-28-2018 ORIF, ankle FIBULOCK NAIL FDA Start: 10-28-2018 ORIF, ankle LOW-PROFILE NONLOCKING SCREW FDA Start: 10-28-2018 ORIF, ankle LOW-PROFILE SCREW FDA Start: 10-28-2018 ORIF, ankle LOW-PROFILE SCREW FDA Start: 10-28-2018 ORIF, ankle MINI IGNITE POWER MIX FDA St art: 10-28-2018 ORIF, ankle syndesmosis tigh trope implant FDA Start: 10-28-2018 ORIF, ankle AUGMENT INJECTABLE FDA Start : 10-28-2018 ORIF, ankle BONE,CRUSHED CANCELLOUS 15CC FDA Start: 10-28-2018 ORIF, ankle FIBULOCK IMPLANT SYSTEM FDA Start: 10-28-2018 ORIF, ankle FIBULOCK NAIL FDA Start: 10-28-2018 ORIF, ankle LOW-PROFILE NONLOCKING SCREW FDA Start: 10-28-2018 ORIF, ankle LOW-PROFILE SCREW FDA Start: 10-28-2018 ORIF, ankle LOW-PROFILE SCREW FDA Start: 10-28-2018 ORIF, ankle MINI IGNITE POWER MIX FDA St art: 10-28-2018 ORIF, ankle syndesmosis tigh trope implant FDA Start: 10-28-2018 ORIF, ankle AUGMENT INJECTABLE FDA Start : 10-28-2018 ORIF, ankle BONE,CRUSHED CANCELLOUS 15CC FDA Start: 10-28-2018 ORIF, ankle FIBULOCK IMPLANT SYSTEM FDA Start: 10-28-2018 ORIF, ankle FIBULOCK NAIL FDA Start: 10-28-2018 ORIF, ankle LOW-PROFILE NONLOCKING SCREW FDA Start: 10-28-2018 ORIF, ankle LOW-PROFILE SCREW FDA Start: 10-28-2018 ORIF, ankle LOW-PROFILE SCREW FDA Start: 10-28-2018 ORIF, ankle MINI IGNITE POWER MIX FDA St art: 10-28-2018 ORIF, ankle syndesmosis tigh trope implant FDA Start: 10-28-2018 ORIF, ankle AUGMENT INJECTABLE FDA Start : 10-28-2018 ORIF, ankle BONE,CRUSHED CANCELLOUS 15CC FDA Start: 10-28-2018 ORIF, ankle FIBULOCK IMPLANT SYSTEM FDA Start: 10-28-2018 ORIF, ankle FIBULOCK NAIL FDA Start: 10-28-2018 ORIF, ankle LOW-PROFILE NONLOCKING SCREW FDA Start: 10-28-2018 ORIF, ankle LOW-PROFILE SCREW FDA Start: 10-28-2018 ORIF, ankle LOW-PROFILE SCREW FDA Start: 10-28-2018 ORIF, ankle MINI IGNITE POWER MIX FDA St art: 10-28-2018 ORIF, ankle syndesmosis tigh trope implant FDA Start: 10-28-2018 ORIF, ankle AUGMENT INJECTABLE FDA Start : 10-28-2018 ORIF, ankle BONE,CRUSHED CANCELLOUS 15CC FDA Start: 10-28-2018 ORIF, ankle FIBULOCK IMPLANT SYSTEM FDA Start: 10-28-2018 ORIF, ankle FIBULOCK NAIL FDA Start: 10-28-2018 ORIF, ankle LOW-PROFILE NONLOCKING SCREW FDA Start: 10-28-2018 ORIF, ankle LOW-PROFILE SCREW FDA Start: 10-28-2018 ORIF, ankle LOW-PROFILE SCREW FDA Start: 10-28-2018 ORIF, ankle MINI IGNITE POWER MIX FDA St art: 10-28-2018 ORIF, ankle syndesmosis tigh trope implant FDA Start: 10-28-2018 ORIF, ankle FDA Start: 10-28-2018 ORIF, ankle FDA Start: 10-28-2018 ORIF, ankle FDA Start: 10-28-2018 ORIF, ankle FDA Start: 10-28-2018 ORIF, ankle FDA Start: 10-28-2018 ORIF, ankle FDA Start: 10-28-2018 ORIF, ankle FDA Start: 10-28-2018 ORIF, ankle FDA Start: 10-28-2018 ORIF, ankle FDA Start: 10-28-2018 ORIF, ankle FDA Start: 10-28-2018 ORIF, ankle FDA Start: 10-28-2018 ORIF, ankle FDA Start: 10-28-2018 ORIF, ankle FDA Start: 10-28-2018 ORIF, ankle FDA Start: 10-28-2018 ORIF, ankle FDA Start: 10-28-2018 ORIF, ankle FDA Start: 10-28-2018 ORIF, ankle FDA Start: 10-28-2018 ORIF, ankle FDA Start: 10-28-2018 ORIF, ankle FDA Start: 10-28-2018 ORIF, ankle FDA Start: 10-28-2018 ORIF, ankle FDA Start: 10-28-2018 ORIF, ankle FDA Start: 10-28-2018 ORIF, ankle FDA Start: 10-28-2018 ORIF, ankle FDA Start: 10-28-2018 ORIF, ankle FDA Start: 10-28-2018 ORIF, ankle FDA Start: 10-28-2018 ORIF, ankle FDA Start: 10-28-2018 ORIF, ankle FDA Start: 10-28-2018 ORIF, ankle FDA Start: 10-28-2018 ORIF, ankle FDA Start: 10-28-2018 ORIF, ankle FDA Start: 10-28-2018 ORIF, ankle FDA Start: 10-28-2018 ORIF, ankle FDA Start: 10-28-2018 ORIF, ankle FDA Start: 10-28-2018 ORIF, ankle FDA Start: 10-28-2018 ORIF, ankle FDA Start: 10-28-2018 ORIF, ankle FDA Start: 10-28-2018 ORIF, ankle FDA Start: 10-28-2018 ORIF, ankle FDA Start: 10-28-2018 ORIF, ankle FDA Start: 10-28-2018 ORIF, ankle FDA Start: 10-28-2018 ORIF, ankle FDA Start: 10-28-2018 ORIF, ankle FDA Start: 10-28-2018 ORIF, ankle FDA Start: 10-28-2018 ORIF, ankle FDA Start: 10-28-2018 ORIF, ankle FDA Start: 10-28-2018 ORIF, ankle FDA Start: 10-28-2018 ORIF, ankle FDA Start: 10-28-2018 ORIF, ankle FDA Start: 10-28-2018 ORIF, ankle FDA Start: 10-28-2018 ORIF, ankle FDA Start: 10-28-2018 ORIF, ankle FDA Start: 10-28-2018 ORIF, ankle FDA Start: 10-28-2018 ORIF, ankle FDA Start: 10-28-2018 ORIF, ankle AUGMENT INJECTABLE FDA Start : 10-28-2018 ORIF, ankle BONE,CRUSHED CANCELLOUS 15CC FDA Start: 10-28-2018 ORIF, ankle FIBULOCK IMPLANT SYSTEM FDA Start: 10-28-2018 ORIF, ankle FIBULOCK NAIL FDA Start: 10-28-2018 ORIF, ankle LOW-PROFILE NONLOCKING SCREW FDA Start: 10-28-2018 ORIF, ankle LOW-PROFILE SCREW FDA Start: 10-28-2018 ORIF, ankle LOW-PROFILE SCREW FDA Start: 10-28-2018 ORIF, ankle MINI IGNITE POWER MIX FDA St art: 10-28-2018 ORIF, ankle syndesmosis tigh trope implant FDA Start: 10-28-2018 ORIF, ankle AUGMENT INJECTABLE FDA Start : 10-28-2018 ORIF, ankle BONE,CRUSHED CANCELLOUS 15CC FDA Start: 10-28-2018 ORIF, ankle FIBULOCK IMPLANT SYSTEM FDA Start: 10-28-2018 ORIF, ankle FIBULOCK NAIL FDA Start: 10-28-2018 ORIF, ankle LOW-PROFILE NONLOCKING SCREW FDA Start: 10-28-2018 ORIF, ankle LOW-PROFILE SCREW FDA Start: 10-28-2018 ORIF, ankle LOW-PROFILE SCREW FDA Start: 10-28-2018 ORIF, ankle MINI IGNITE POWER MIX FDA St art: 10-28-2018 ORIF, ankle syndesmosis tigh trope implant FDA Start: 10-28-2018 ORIF, ankle AUGMENT INJECTABLE FDA Start : 10-28-2018 ORIF, ankle BONE,CRUSHED CANCELLOUS 15CC FDA Start: 10-28-2018 ORIF, ankle FIBULOCK IMPLANT SYSTEM FDA Start: 10-28-2018 ORIF, ankle FIBULOCK NAIL FDA Start: 10-28-2018 ORIF, ankle LOW-PROFILE NONLOCKING SCREW FDA Start: 10-28-2018 ORIF, ankle LOW-PROFILE SCREW FDA Start: 10-28-2018 ORIF, ankle LOW-PROFILE SCREW FDA Start: 10-28-2018 ORIF, ankle MINI IGNITE POWER MIX FDA St art: 10-28-2018 ORIF, ankle syndesmosis tigh trope implant FDA Start: 10-28-2018 ORIF, ankle AUGMENT INJECTABLE FDA Start : 10-28-2018 ORIF, ankle BONE,CRUSHED CANCELLOUS 15CC FDA Start: 10-28-2018 ORIF, ankle FIBULOCK IMPLANT SYSTEM FDA Start: 10-28-2018 ORIF, ankle FIBULOCK NAIL FDA Start: 10-28-2018 ORIF, ankle LOW-PROFILE NONLOCKING SCREW FDA Start: 10-28-2018 ORIF, ankle LOW-PROFILE SCREW FDA Start: 10-28-2018 ORIF, ankle LOW-PROFILE SCREW FDA Start: 10-28-2018 ORIF, ankle MINI IGNITE POWER MIX FDA St art: 10-28-2018 ORIF, ankle syndesmosis tigh trope implant FDA Start: 10-28-2018 ORIF, ankle AUGMENT INJECTABLE FDA Start : 10-28-2018 ORIF, ankle BONE,CRUSHED CANCELLOUS 15CC FDA Start: 10-28-2018 ORIF, ankle FIBULOCK IMPLANT SYSTEM FDA Start: 10-28-2018 ORIF, ankle FIBULOCK NAIL FDA Start: 10-28-2018 ORIF, ankle LOW-PROFILE NONLOCKING SCREW FDA Start: 10-28-2018 ORIF, ankle LOW-PROFILE SCREW FDA Start: 10-28-2018 ORIF, ankle LOW-PROFILE SCREW FDA Start: 10-28-2018 ORIF, ankle MINI IGNITE POWER MIX FDA St art: 10-28-2018 ORIF, ankle syndesmosis tigh trope implant FDA Start: 10-28-2018 ORIF, ankle AUGMENT INJECTABLE FDA Start : 10-28-2018 ORIF, ankle BONE,CRUSHED CANCELLOUS 15CC FDA Start: 10-28-2018 ORIF, ankle FIBULOCK IMPLANT SYSTEM FDA Start: 10-28-2018 ORIF, ankle FIBULOCK NAIL FDA Start: 10-28-2018 ORIF, ankle LOW-PROFILE NONLOCKING SCREW FDA Start: 10-28-2018 ORIF, ankle LOW-PROFILE SCREW FDA Start: 10-28-2018 ORIF, ankle LOW-PROFILE SCREW FDA Start: 10-28-2018 ORIF, ankle MINI IGNITE POWER MIX FDA St art: 10-28-2018 ORIF, ankle syndesmosis tigh trope implant FDA Start: 10-28-2018 ORIF, ankle AUGMENT INJECTABLE FDA Start : 10-28-2018 ORIF, ankle BONE,CRUSHED CANCELLOUS 15CC FDA Start: 10-28-2018 ORIF, ankle FIBULOCK IMPLANT SYSTEM FDA Start: 10-28-2018 ORIF, ankle FIBULOCK NAIL FDA Start: 10-28-2018 ORIF, ankle LOW-PROFILE NONLOCKING SCREW FDA Start: 10-28-2018 ORIF, ankle LOW-PROFILE SCREW FDA Start: 10-28-2018 ORIF, ankle LOW-PROFILE SCREW FDA Start: 10-28-2018 ORIF, ankle MINI IGNITE POWER MIX FDA St art: 10-28-2018 ORIF, ankle syndesmosis tigh trope implant FDA Start: 10-28-2018 ORIF, ankle AUGMENT INJECTABLE FDA Start : 10-28-2018 ORIF, ankle BONE,CRUSHED CANCELLOUS 15CC FDA Start: 10-28-2018 ORIF, ankle FIBULOCK IMPLANT SYSTEM FDA Start: 10-28-2018 ORIF, ankle FIBULOCK NAIL FDA Start: 10-28-2018 ORIF, ankle LOW-PROFILE NONLOCKING SCREW FDA Start: 10-28-2018 ORIF, ankle LOW-PROFILE SCREW FDA Start: 10-28-2018 ORIF, ankle LOW-PROFILE SCREW FDA Start: 10-28-2018 ORIF, ankle MINI IGNITE POWER MIX FDA St art: 10-28-2018 ORIF, ankle syndesmosis tigh trope implant FDA Start: 10-28-2018 ORIF, ankle AUGMENT INJECTABLE FDA Start : 10-28-2018 ORIF, ankle BONE,CRUSHED CANCELLOUS 15CC FDA Start: 10-28-2018 ORIF, ankle FIBULOCK IMPLANT SYSTEM FDA Start: 10-28-2018 ORIF, ankle FIBULOCK NAIL FDA Start: 10-28-2018 ORIF, ankle LOW-PROFILE NONLOCKING SCREW FDA Start: 10-28-2018 ORIF, ankle LOW-PROFILE SCREW FDA Start: 10-28-2018 ORIF, ankle LOW-PROFILE SCREW FDA Start: 10-28-2018 ORIF, ankle MINI IGNITE POWER MIX FDA St art: 10-28-2018 ORIF, ankle syndesmosis tigh trope implant FDA Start: 10-28-2018 ORIF, ankle AUGMENT INJECTABLE FDA Start : 10-28-2018 ORIF, ankle BONE,CRUSHED CANCELLOUS 15CC FDA Start: 10-28-2018 ORIF, ankle FIBULOCK IMPLANT SYSTEM FDA Start: 10-28-2018 ORIF, ankle FIBULOCK NAIL FDA Start: 10-28-2018 ORIF, ankle LOW-PROFILE NONLOCKING SCREW FDA Start: 10-28-2018 ORIF, ankle LOW-PROFILE SCREW FDA Start: 10-28-2018 ORIF, ankle LOW-PROFILE SCREW FDA Start: 10-28-2018 ORIF, ankle MINI IGNITE POWER MIX FDA St art: 10-28-2018 ORIF, ankle syndesmosis tigh trope implant FDA Start: 10-28-2018 ORIF, ankle AUGMENT INJECTABLE FDA Start : 10-28-2018 ORIF, ankle BONE,CRUSHED CANCELLOUS 15CC FDA Start: 10-28-2018 ORIF, ankle FIBULOCK IMPLANT SYSTEM FDA Start: 10-28-2018 ORIF, ankle FIBULOCK NAIL FDA Start: 10-28-2018 ORIF, ankle LOW-PROFILE NONLOCKING SCREW FDA Start: 10-28-2018 ORIF, ankle LOW-PROFILE SCREW FDA Start: 10-28-2018 ORIF, ankle LOW-PROFILE SCREW FDA Start: 10-28-2018 ORIF, ankle MINI IGNITE POWER MIX FDA St art: 10-28-2018 ORIF, ankle syndesmosis tigh trope implant FDA Start: 10-28-2018 ORIF, ankle AUGMENT INJECTABLE FDA Start : 10-28-2018 ORIF, ankle BONE,CRUSHED CANCELLOUS 15CC FDA Start: 10-28-2018 ORIF, ankle FIBULOCK IMPLANT SYSTEM FDA Start: 10-28-2018 ORIF, ankle FIBULOCK NAIL FDA Start: 10-28-2018 ORIF, ankle LOW-PROFILE NONLOCKING SCREW FDA Start: 10-28-2018 ORIF, ankle LOW-PROFILE SCREW FDA Start: 10-28-2018 ORIF, ankle LOW-PROFILE SCREW FDA Start: 10-28-2018 ORIF, ankle MINI IGNITE POWER MIX FDA St art: 10-28-2018 ORIF, ankle syndesmosis tigh trope implant FDA Start: 10-28-2018 ORIF, ankle AUGMENT INJECTABLE FDA Start : 10-28-2018 ORIF, ankle BONE,CRUSHED CANCELLOUS 15CC FDA Start: 10-28-2018 ORIF, ankle FIBULOCK IMPLANT SYSTEM FDA Start: 10-28-2018 ORIF, ankle FIBULOCK NAIL FDA Start: 10-28-2018 ORIF, ankle LOW-PROFILE NONLOCKING SCREW FDA Start: 10-28-2018 ORIF, ankle LOW-PROFILE SCREW FDA Start: 10-28-2018 ORIF, ankle LOW-PROFILE SCREW FDA Start: 10-28-2018 ORIF, ankle MINI IGNITE POWER MIX FDA St art: 10-28-2018 ORIF, ankle syndesmosis tigh trope implant FDA Start: 10-28-2018 ORIF, ankle AUGMENT INJECTABLE FDA Start : 10-28-2018 ORIF, ankle BONE,CRUSHED CANCELLOUS 15CC FDA Start: 10-28-2018 ORIF, ankle FIBULOCK IMPLANT SYSTEM FDA Start: 10-28-2018 ORIF, ankle FIBULOCK NAIL FDA Start: 10-28-2018 ORIF, ankle LOW-PROFILE NONLOCKING SCREW FDA Start: 10-28-2018 ORIF, ankle LOW-PROFILE SCREW FDA Start: 10-28-2018 ORIF, ankle LOW-PROFILE SCREW FDA Start: 10-28-2018 ORIF, ankle MINI IGNITE POWER MIX FDA St art: 10-28-2018 ORIF, ankle syndesmosis tigh trope implant FDA Start: 10-28-2018 ORIF, ankle AUGMENT INJECTABLE FDA Start : 10-28-2018 ORIF, ankle BONE,CRUSHED CANCELLOUS 15CC FDA Start: 10-28-2018 ORIF, ankle FIBULOCK IMPLANT SYSTEM FDA Start: 10-28-2018 ORIF, ankle FIBULOCK NAIL FDA Start: 10-28-2018 ORIF, ankle LOW-PROFILE NONLOCKING SCREW FDA Start: 10-28-2018 ORIF, ankle LOW-PROFILE SCREW FDA Start: 10-28-2018 ORIF, ankle LOW-PROFILE SCREW FDA Start: 10-28-2018 ORIF, ankle MINI IGNITE POWER MIX FDA St art: 10-28-2018 ORIF, ankle syndesmosis tigh trope implant FDA Start: 10-28-2018 Plate Lcp Stainl ess Steel [id number] .7mm Bone 1/3 Tubular 10 Hole Collar - [id number] Start: 04-20-2017 Screw Dcp Lc-Dcp 3.5mm Stainless Steel 55mm Bone Self Tapping Hexagonal - [id number] Start: 04-20-2017 Cement Simplex Gentamicin Bone High Viscosity 20ml Sterile 40gm - [id number] Start: 05-18-2022 ([id number]) [id number] FDA Start: 02-24-2023 ([id number]) [id number] FDA Start: 02-24-2023 ([id number])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 [place] and then transferred to [facility] trauma center. S/p thoracentesis 08/25 in [place] with 740cc serosanguinous fluid removed, cytology negative. [...] exposure: Denied Family history of malignancy: Denied . Age appropriate cancer screening PAP: Previously normal Colonoscopy: Up to date, normal 01/05/23 S/p ENB/EBUS 09/22/2022, biopsy of RUL mass with rare atypical cells. TBNA lymph nodes 11 L, 7, 4R, and 11 R negative for malignancy. Patient reported that over the weekend she thought she was having an MT, was hospitalized and told she was dehydrated. Now feeling improved. Admitted to [facility] since her MT 2 years ago, denied any SOB at rest. Denied any fevers, chills, cough, wheezing, chest tightness. Previously completed PFTs two years ago, was told she had COPD, but was unable to tolerateinhaler. 08/03/23 Patient was identified and seen today via Telehealth by agreement and consent. I used the followingTelehealth technology: Audio capability only. Total length of call 8 minutes. The patient was offered and advised [...] stated that they are currently in the [facility]. If the patient is a minor, permission has been obtained by the parent or guardian for the patient to receive medical care at this visit. Patient reported that since her last visit she has had cardiac problems including bradycardia, s/p PPM placement. Additionally developed dyspnea, has had multiple repeat thoracenteses, most recently about 3 weeks ago. Stated that she continues to have dyspnea which she believes is related to her heart. Has completed additional testing with her wire saw operator and told that she does not have any pulmonary problems. PastMedical History Past Medical History: Diagnosis Date MT (myocardial infarction) ([facility]) 2020 1 stent placed Past Surgical History History reviewed. No pertinent surgical history. Allergies Allergies Allergen Reactions Ticagrelor Other Medications Medication Documentation Review Audit Reviewed by Galo Gonzalez DO (Physician) on 08/03/23 at 1031 Medication Order Taking? Sig Documenting Provider Last Dose Status abatacept (Orencia) 250 MG injection [id number] No Infuse 750 mg into a venous catheter every 28 (twenty-eight) days. Historical Provider, Taking Active aspirin 81 MG EC tablet [id number] No Take 81 mg by mouth daily. Historical Provider, Taking Active leucovorin (Wellcovorin) 15 MG tablet [id number] No Historical Provider, Taking Active methotrexate 2.5 MG tablet [id number] No Historical Provider, Taking Active metoprolol succinate XL (Toprol-XL) 25 MG 24 hr tablet [id number] No Historical Provider, Taking Active mirtazapine (Remeron) 15 MG tablet [id number] No Take 15 mg by mouth Nightly. Historical Provider, Taking Active spironolactone (Aldactone) 50 MG tablet [id number] No Take 50 mg by mouth every morning. Historical Provider, Taking Active Synthroid 75 MCG tablet [id number] No Historical Provider, Taking Active Social History Social History Tobacco Use Smoking status: Never Smokeless tobacco: Never Substance Use Topics Alcohol use: Never FamilyHistory No family history on file. Review of Systems Review of Systems Constitutional: Negative. Respiratory: Positive for shortness of breath. Cardiovascular: Negative for leg swelling. Physical Exam There were no vitals filed for this visit. Physical Exam Constitutional: Comments: Limited exam, audio visit Pulmonary: Comments: Speaking comfortably in full sentences Neurological: Mental Status: She is oriented to person, place, and time. Labs: Available studies were reviewed Radiology: Personally reviewed and interpreted Chest CT 08/19/22 ([place]): Large right pleural effusion with compressive atelectasis. [...] in the interval. Stable nodules in the rightlower lobe measuring 4.7 mm. No new interval appearance of the lung nodule or mass Chest CT 07/05/23 (images in PACS, report in media): Persistent moderate right pleural effusion essentially unchanged. Right apical pleural based density unchanged could be due to scarring. Tumor is less likely. PFT's: Assessment/plan: RUL lesion R hilar PET avidity Small R pleural effusion Hx stage IIIA poorly differentiated R breast cancer s/p mastectomy/XRT/chemo RA on methotrexate/leucovorin/abatacept Vaccine counseling -Chest images, PET scan and pleural fluid cytology previously reviewed with patient and daughter. -S/p ENB/EBUS 09/22/2022, biopsy of RUL mass with rare atypical cells. TBNA lymph nodes 11 L, 7, 4R,and 11 R negative for malignancy. -Follow-up chest CT images from [place] last month reviewed, right apical density and right perihilar region appear stable. Pleural effusion appears slightly enlarged. Results discussed with patient.Patient stated she is s/p multiple repeat thoracenteses, most recently about 3 weeks ago. Stated that she has followed up with her wire saw operator in [place], has completed additional testing with them. Attributes her dyspnea to cardiac issues, follows with a anatomy teacher in [place]. -Discussed with patient that right apical and right hilar lesions appear stable, recommend follow-up chest CT in 1 year. Patient prefers to have all of her imaging and follow-up in [place], discussedthat she can continue to follow-up with her oncologist Dr. Jonas for imaging -Patient reported previously completing PFTs. Not currently on inhalers. Follows with pulmonary in [place] -Patient reported she obtains her vaccines through her PCP Dr. Hall, believes she is up-to-date with pneumonia, Tdap Follow up: Can follow-up with her oncologist/wire saw operator for results of CT in 1 year if she prefers, otherwise welcome to follow-up with us to review results Please seek immediate medical [...] on the day of the visit. Galo Gonzalez DO 10:52 AM 08/03/23 Pulmonary and Critical Care Medicine documented in this [facility]02-28-2024 Telephone encounter Note* Telephone Encounter - Ladi Sharp RCP - 06/30/2023 3:10 PM EST Navigator contacted the office of radiation oncologist, Dr. Matteo Jonas in [place]. Confirmed that Ms. Ferguson is scheduled for CT chest 07/05/2023 at [facility]. Navigator will obtain outside images for review. Spoke with patient by phone and arranged appointment with Dr. Gonzalez by phone to review images and results. Patient is aware that if there are significant changes or more urgent follow-up is needed, we will contact her to reschedule sooner. [id number] Miscellaneous Notes* Telephone Encounter - Ladi Sharp RCP - 06/30/2023 3:10 PM EST Navigator contacted the office of radiation oncologist, Dr. Matteo Jonas in [place]. Confirmed that Ms. Ferguson is scheduled for CT chest 07/05/2023 at [facility]. Navigator will obtain outside images for review. Spoke with patient by phone and arranged appointment with Dr. Gonzalez by phone to review images and results. Patient is aware that if there are significant changes or more urgent follow-up is needed, we will contact her to reschedule sooner. documented in this [facility]01-11-[address] [facility]01-10-[address] [facility]10-24-2023 History and physical note Author Matteo Anderson [facility] February 23, 2023 10:16pm Note Date/Time February 23, 2023 7 :46pm [facility] Medical Records Department [address] [place] [address] H&P Exam - Hospitalist 02/23/231943 MR#: [id number] Acct: [id number] Name: ROBERTO FERGUSON Rep #:[id number] : 1935 87 From: Matteo Anderson MD PCP: Dr. Teagan Hall MD Status:ADM IN Location: ICU ICU04-1 HPI - General General Date of Admission: 02/23/23 Date of Service: 02/23/23 Chief Complaint: Near syncope HPI Narrative ROBERTO FERGUSON, is a 87 F with a significant history of CAD status post stent; atrial fibrillation on metoprolol and amiodarone; breast cancer status post right mastectomy, and chemoradiation; and a pleural effusion status post arthrocentesis on 02/23/2020 who presents to the emergency department with 2 episodes of presyncope that occurred within 1 hour. And patient presented within 1 hour of onset of symptoms . Patient reports history of chronic shortness of breath that worsened on the day of presentation. With her presyncopal episode reportedly her pulse was in the 30s. Also patient reports previous episodes of near syncope . Patient called her daughter who works over the [employer]; and she was advised to come to the emergency department. Per family and patient patient to be having a pacemaker placed on Wednesday at 02/26/2023. Emergency C department reports discussing case with Dr. Dunham, cardiology on- call who recommended that patient's metoprolol and amiodarone be held. [facility] Medical History Arthritis Atherosclerosis of coronary artery of [place] heart without angina pectoris CKD (chronic kidney disease) stage 3, GFR 30-59 ml/min Colonization status Contamination Delayed wound healing Fx cervical vert NOS-closed Fx clavicle History of coronary artery stent placement (04/12/20) History of malignant neoplasm of right breast 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 Left ankle swelling Malignant neoplasm of right female breast Mitral valve insufficiency Non-pressure chronic ulcer of unspecified part of left lower leg with fat layer exposed Non-rheumatic mitral regurgitation Osteomyelitis of left lower extremity Osteopenia Other specified peripheral vascular diseases Rheumatoid arthritis Staph infection STEMI (ST elevation myocardial infarction) Venous insufficiency (chronic) (peripheral) Home Medications calcium carbonate 200 mg calcium (500 mg) chewable tablet 1,000 mg PO DAILY@0800indigestion 10/26/18 [History Last Taken 05/16/20] abatacept 50 mg/0.4 mL subcutaneous syringe 750 mg IV QMONTH arthritis 12/13/19 [History Last Taken Unknown] acetaminophen 500 mg tablet 1,000 mg PO BID pain 04/12/20 [History Last Taken 05/16/20] aspirin 81 mg tablet,delayed release 81 mg PO DAILY@0800 heart 05/16/20 [History Last Taken 01/27/23] folic acid 1 mg tablet 1 mg PO BID supplement 05/23/20 [History Last Taken 01/27/23] methotrexate sodium 2.5 mg tablet 15 mg PO BRENNER arthritis 05/23/20 [History Last Taken Unknown] leucovorin calcium 15 mg tablet 15 mg PO QWEEK 09/25/20 [History Last Taken Unknown] levothyroxine 75 mcg tablet 75 mcg PO DAILY thyroid 12/12/21 [History Last Taken 01/27/23] amiodarone 200 mg tablet 200 mg PO DAILY #90 tabs 02/04/23 [Rx Last Taken Unknown] apixaban 2.5 mg tablet (Eliquis) 2.5 mg PO BID #180 tabs 02/04/23 [Rx Last Taken Unknown] furosemide 40 mg tablet (Lasix) 40 mg PO BID #180 tabs 02/04/23 [Rx Last Taken Unknown] lorazepam 0.5 mg tablet 0.25 mg PO QHS PRN anxiety 02/04/23 [History Last Taken Unknown] mirtazapine 15 mg tablet 15 mg PO DAILY 02/04/23 [History Last Taken Unknown] ranolazine 500 mg tablet,extended release,12 hr (Ranexa) 500 mg PO BID #60 tabs 02/04/23 [Rx Last Taken Unknown] spironolactone 25 mg tablet 25 mg PO QAM #90 tabs 02/09/23 [Rx Last Taken Unknown] metoprolol tartrate 50 mg tablet 25 mg PO BID 02/23/23 [History Last Taken Unknown] Allergy/AdvReac Type Severity Reaction Status Date / Time ticagrelor [From Brilinta] AdvReac Severe Severe Verified 02/23/23 17:00 dyspnea on exertion Family History Father Clotting disorder Heart disease Surgical History History of ankle surgery History of arthroplasty of left ankle History of cardioversion (01/27/23) History of left heart catheterization (LHC) (~01/02/21) History of mastectomy History of tubal ligation Presence of coronary angioplasty implant and graft (~04/12/20) Social History Smoking Status: Never smoker alcohol intake: never substance use type: does not use caffeine: Yes ROS ROS Narrative Pertinent positives and pertinent negatives as noted in HPI. All other systems were reviewed and are negative Vital Signs Vital Signs Vital Signs: 02/23/23 16:58 02/23/23 17:19 02/23/23 17:28 Temperature 97 F L Temperature Source Temporal Pulse Rate 40 L Respiratory Rate 18 Respiratory Effort Normal Non-Labored Respiratory Pattern Normal Blood Pressure 121/58 H Blood Pressure Mean 79 Pulse Ox 100 Oxygen Delivery Method Room Air Nasal Cannula Oxygen Flow Rate (L/min) 4 02/23/23 17:56 02/23/23 18:00 02/23/23 19:00 Temperature 98.6 F 98.5 F Temperature Source Temporal Temporal Pulse Rate 50 L 59 L 79 Respiratory Rate 16 14 14 Respiratory Effort Respiratory Pattern Blood Pressure 110/56 L 118/61 115/66 Blood Pressure Mean 74 80 82 Pulse Ox 100 99 98 Oxygen Delivery Method Room Air Room Air Room Air Oxygen Flow Rate (L/min) Weight Weight: 55 kg Body Mass Index (BMI) 20.1 Physical Exam Narrative Physical exam: General: Well-nourished, well-developed. Head: Normocephalic, atraumatic, no tenderness Eyes: Vision is grossly intact. EOMI ENT, no trauma, dry mucous membranes, no rhinorrhea Neck: Nontender, No thyromegaly. CVS: Regular rate and rhythm. S1-S2 present. No murmur, gallop or rub. Respiratory : clear to auscultation bilaterally, chest wall nontender Abdomen: Soft, nontender, nondistended, normal bowel sounds, no masses : Deferred Back: Nontender, no CVA tenderness, no midline spinal tenderness, deformities, step-offs Extremities: Nontender full range of motion, no trauma. Deformed fingers Skin: Normal color, no trauma, abrasions Neuro: Alert, oriented, cranial nerves II through XII grossly intact. Psychiatry: Normal mood. Normal affect. Not depressed. Not anxious. Results Lab / Micro Data Attestation: I reviewed the patient's lab results. 02/23/23 17:07 02/23/23 17:07 Labs: Laboratory Results - last 24 hr 02/23/23 17:07: WBC 8.0, RBC 5.03, Hgb 15.8 H, Hct 48.2 H, MCV 95.8, MCH 31.4, MCHC 32.8, RDW Std Deviation 48.4 H, RDW Coeff of Sharad 13.6, Plt Count 239, MPV 10.4, Immature Gran % (Auto) 0.500, Neut % (Auto) 68.3, Lymph % (Auto) 20.1, [place] % (Auto) 10.2 H, Eos % (Auto) 0.4, Baso % (Auto) 0.5, Absolute Neuts (auto)5.5, Absolute Lymphs (auto) 1.60, Nucleated RBC % 0, Sodium 129 L, Potassium 5.0, Chloride 96 L, Carbon Dioxide 23.0, Anion Gap 10, BUN 34 H, Creatinine 1.69H, Estim Creat Clear Calc 20.75, Est GFR (MDRD) Af Amer 37 L, Est GFR (MDRD) Non-Af 31 L, BUN/Creatinine Ratio 20.1 H, Glucose 156 H, Calcium 9.6, Troponin I High Sens 40 Rhythm Strip Rhythm Strip: 3rd deg HB Rate: 38 Ectopy: None Radiology Impression Chest X-Ray 02/23/23 17:45 IMPRESSION: Tiny residual right pleural effusion. No focal infiltration Electronically Signed: Keyur Farrell MD at 18:13 EDT , Assessment & Plan Assessment/Plan (1) ASHLI (acute kidney injury): (2) Complete heart block: PLAN: Plan Complete heart block Review of labs shows potassium of 5.0. Check magnesium. Will admit patient to intensive care unit and keep patient n.p.o. after midnight. Hold amiodarone and metoprolol. Hold Eliquis. Cardiology consult. Hyponatremia Sodium on presentation was 129. BUN is 34. Patient has dry mucous membrane. Patient is on diuretics. Likely secondary to dehydration and hypovolemia. Holdhome diuretics. Gentle IV hydration. Trend BMP. Cautious use of IV fluids as patient reports of having arthrocentesis a day before presentation. She also reports having in the past before the current one ASHLI on CKD stage IIIa Likely secondary to dehydration and hypovolemia. IV hydration as above. Trend. Avoid nephrotoxic's. Paroxysmal A-fib/a flutter Holding home Eliquis secondary to patient being a candidate of pacemaker. History of pleural effusion Chest x-ray on presentation and previous chest x-ray was independently interpreted.. Agrees with radiology interpretation of status post right thoracentesis. No evidence of pneumothorax. DVT prophylaxis Subcutaneous Lovenox ordered. Time spent in the patient's overall evaluation,decision-making process, review of diagnostic data, adjustment of management, discussion with other providers, nursing and ancillary staff involved in patient's care documentation, 70 minutes. Charges/Coding Visit Charges Inpatient E&M: 12491 Init Hosp L3 02/23/23 2216 <Electronically signed by Matteo Anderson MD> Cosigner Signature (if applicable): CC: Dr. Teagan Hall MD; Dr. Matteo Anderson MD~ Signed [facility] Work Phone: 1(785) 777-604010-24-2023 Discharge summary Author Seth Garcia [facility] February 23, 2023 7:30pm Note Date/Time February 23, 2023 5 :31pm [facility] Medical Records Department [address] [place] [address] Emergency Department Summary 02/23/23 MR#: [id number] Acct: [id number] Name: ROBERTO FERGUSON Rep #:[id number] : 1935 87 From: Seth Garcia MD PCP: Dr. Teagan Hall MD Status:REG ER Location: ED HPI History of Present Illness Chief Complaint: Dizziness Informant: patient and family Narrative Narrative: Patient fell near syncopal today without provoking or exerting herself. She sat/lay down, and did not lose consciousness, checked her blood pressure and noted that her pulse was in the 30s, she has a family member who works for the local cardiology office, she advised her to come to the emergency department. Patient states she is feeling little more short of breath than usual, but she isdyspneic off-and-on maybe for a month or 2. She has a history of A-fib and often times when her A-fib is out of whack she feels dyspneic. She had a cardioversion within the last couple weeks. Denies having any chest pain or palpitations recently. Anticoagulated on apixaban without any obvious bleeding recently. [facility] Medical History Arthritis Atherosclerosis of coronary artery of [place] heart without angina pectoris Colonization status Contamination Delayed wound healing Fx cervical vert NOS-closed Fx clavicle History of coronary artery stent placement (04/12/20) History of malignant neoplasm of right breast 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 Left ankle swelling Malignant neoplasm of right female breast Mitral valve insufficiency Non-pressure chronic ulcer of unspecified part of left lower leg with fat layer exposed Non-rheumatic mitral regurgitation Osteomyelitis of left lower extremity Osteopenia Other specified peripheral vascular diseases Rheumatoid arthritis Staph infection STEMI (ST elevation myocardial infarction) Venous insufficiency (chronic) (peripheral) Home Medications calcium carbonate 200 mg calcium (500 mg) chewable tablet 1,000 mg PO DAILY@0800indigestion 10/26/18 [History Last Taken 05/16/20] abatacept 50 mg/0.4 mL subcutaneous syringe 750 mg IV QMONTH arthritis 12/13/19 [History Last Taken Unknown] acetaminophen 500 mg tablet 1,000 mg PO BID pain 04/12/20 [History Last Taken 05/16/20] aspirin 81 mg tablet,delayed release 81 mg PO DAILY@0800 heart 05/16/20 [History Last Taken 01/27/23] folic acid 1 mg tablet 1 mg PO BID supplement 05/23/20 [History Last Taken 01/27/23] methotrexate sodium 2.5 mg tablet 15 mg PO BRENNER arthritis 05/23/20 [History Last Taken Unknown] leucovorin calcium 15 mg tablet 15 mg PO QWEEK 09/25/20 [History Last Taken Unknown] levothyroxine 75 mcg tablet 75 mcg PO DAILY thyroid 12/12/21 [History Last Taken 01/27/23] amiodarone 200 mg tablet 200 mg PO DAILY #90 tabs 02/04/23 [Rx Last Taken Unknown] apixaban 2.5 mg tablet (Eliquis) 2.5 mg PO BID #180 tabs 02/04/23 [Rx Last Taken Unknown] furosemide 40 mg tablet (Lasix) 40 mg PO BID #180 tabs 02/04/23 [Rx Last Taken Unknown] lorazepam 0.5 mg tablet 0.25 mg PO QHS PRN anxiety 02/04/23 [History Last Taken Unknown] mirtazapine 15 mg tablet 15 mg PO DAILY 02/04/23 [History Last Taken Unknown] ranolazine 500 mg tablet,extended release,12 hr (Ranexa) 500 mg PO BID #60 tabs 02/04/23 [Rx Last Taken Unknown] spironolactone 25 mg tablet 25 mg PO QAM #90 tabs 02/09/23 [Rx Last Taken Unknown] metoprolol tartrate 50 mg tablet 25 mg PO BID 02/23/23 [History Last Taken Unknown] Allergy/AdvReac Type Severity Reaction Status Date / Time ticagrelor [From Brilinta] AdvReac Severe Severe Verified 02/23/23 17:00 dyspnea on exertion Family History Father Clotting disorder Heart disease Surgical History History of ankle surgery History of arthroplasty of left ankle History of cardioversion (01/27/23) History of left heart catheterization (LHC) (~01/02/21) History of mastectomy History of tubal ligation Presence of coronary angioplasty implant and graft (~04/12/20) Social History Smoking Status: Never smoker alcohol intake: never substance use type: does not use caffeine: Yes ROS ROS ED Constitutional Constitutional ED: Reports fatigue and weakness; Denies chills or fever(s) Eyes Eyes: Denies change in vision or diplopia ENT ENT ED: Denies rhinorrhea or sore throat Cardiovascular Cardiovascular: Reports lightheadedness; Denies chest pain, leg edema or palpitations Respiratory/Chest Respiratory/Chest: Reports dyspnea; Denies cough Gastrointestinal Gastrointestinal: Denies abdominal pain, diarrhea, nausea or vomiting Genitourinary Genitourinary ED: Denies dysuria or hematuria Musculoskeletal Musculoskeletal: Denies back pain or neck pain Integumentary Denies abscess or rash Neurologic Neurologic: Denies headache(s), paresthesias or weakness Psychiatric Psychiatric: Denies anxiety or suicidal thoughts EXAM Physical Exam Const Vital Signs: 02/23/23 16:58 02/23/23 17:19 02/23/23 17:28 Temperature 97 F L Temperature Source Temporal Pulse Rate 40 L Respiratory Rate 18 Respiratory Effort Normal Non-Labored Respiratory Pattern Normal Blood Pressure 121/58 H Blood Pressure Mean 79 Pulse Ox 100 Oxygen Delivery Method Room Air Nasal Cannula Oxygen Flow Rate (L/min) 4 02/23/23 17:56 02/23/23 18:00 02/23/23 19:00 Temperature 98.6 F 98.5 F Temperature Source Temporal Temporal Pulse Rate 50 L 59 L 79 Respiratory Rate 16 14 14 Respiratory Effort Respiratory Pattern Blood Pressure 110/56 L 118/61 115/66 Blood Pressure Mean 74 80 82 Pulse Ox 100 99 98 Oxygen Delivery Method Room Air Room Air Room Air Oxygen Flow Rate (L/min) Positive well nourished and well developed General Appearance ED: well developed and NAD HEENT Reports moist mucous membranes normocephalic and atraumatic Eyes PERRL and EOMs intact bilaterally Neck full ROM and supple Resp normal respiratory effort and clear to auscultation bilaterally Cardio regular rate and regular rhythm Rate: bradycardia GI non-tender and non-distended Auscultation: normoactive bowel sounds Palpation: soft Back/Spine no CVA tenderness General Back: other FROM Extremity normal to inspection General Extremety ED: Negative for edema, pulses abnormal or tenderness General Extremity: Negative for edema or pulses abnormal Neuro oriented x3, CN's II-XII intact bilaterally and no sensory deficits noted Sensorium / Orientation: awake and alert Motor Exam: strength 5/5 throughout Psych mental status grossly normal Skin no rashes or lesions noted and no wounds MDM MDM MDM Narrative Medical decision making narrative: Patient remained stable while being observed in the ER at rest with heart rate in the 30-40s. Discussed with cardiology who agree with admitting her for pacemaker placement and holding amiodarone and metoprolol which appear to be theonly AV zoila blockers she is on. Chest x-ray 1 view neck for acute pneumonia on my interpretation, there is a tiny right pleural effusion. I reviewed the radiology report. EKG consistent with complete heart block with underlying sinus tach versus ectopic atrial tach versus a flutter that is slow. Troponin within normal limits, creatinine slightly elevated. Cardiology recommended against pacing transcutaneously or transvenously if the patient is tolerating bradycardia rest which she is, will admit to ICU. Discussed with hospitalist. Lab Data Attestation: I reviewed the patient's lab results. Labs: Laboratory Results - last 24 hr 02/23/23 17:07 WBC 8.0 RBC 5.03 Hgb 15.8 H Hct 48.2 H MCV 95.8 MCH 31.4 MCHC 32.8 RDW Std Deviation 48.4 H RDW Coeff of Sharad 13.6 Plt Count 239 MPV 10.4 Immature Gran % (Auto) 0.500 Neut % (Auto) 68.3 Lymph % (Auto) 20.1 [place] % (Auto) 10.2 H Eos % (Auto) 0.4 Baso % (Auto) 0.5 Absolute Neuts (auto) 5.5 Absolute Lymphs (auto) 1.60 Nucleated RBC % 0 Sodium 129 L Potassium 5.0 Chloride 96 L Carbon Dioxide 23.0 Anion Gap 10 BUN 34 H Creatinine 1.69 H Estim Creat Clear Calc 20.75 Est GFR (MDRD) Af Amer 37 L Est GFR (MDRD) Non-Af 31 L BUN/Creatinine Ratio 20.1 H Glucose 156 H Calcium 9.6 Troponin I High Sens 40 Radiography Diagnostic Testing: Clinical Impression(s) from Imaging Studies Chest X-Ray 02/23/23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 Instructions: Per PCP Hypotension clopidogrel 75 mg tablet 75 mg PO DAILY Qty: 90 3RF Primary Care Provider: Teagan Hall Referrals: Teagan Hall MD [Primary Care Provider] - As Needed Disposition Disposition: Home, Self Care What to do if you have Problems For any increased pain, shortness of breath, bleeding, nausea or vomiting, chestpain, or any unexpected problems, contact your Primary Care Provider. Call [facility] ([phone]) or report to the closest Emergency Room. Call 911 if necessary. 11/12/22824 <Electronically signed by Seth Garcia MD> Cosigner Signature (if applicable): CC: Dr. Teagan Hall MD ~ Signed [facility] Work Phone: Evaluation note* Diagnosis Onset Date Resolution Status History of malignant neoplasm of right breast chronic History of malignant neoplasm of right breast chronic Osteopenia chronic Atherosclerosis of coronary artery of [place] heart without angina pectoris chronic History of coronary artery stent placement April 122019 chronic Mitral valve insufficiency c hronic Palpitations chronic [facility] Work Phone: Evaluation noteNo assessment information available [facility] Work Phone: Evaluation note* Diagnosis Onset Date Resolution Status Chest pain, unspecified acut e COLE (dyspnea on exertion) ac [place] Double vision acute Hyperlipidemia acute Atherosclerosis of coronary artery of [place] heart without angina pectoris chronic History of coronary artery stent placement April 122019 [facility] Work Phone: Evaluation note* Diagnosis History of ankle surgery- Primary Chronic pain of left ankle Wound dehiscence Disruption of external operation (surgical) wound Decreased pedal pulses Other symptoms involving cardiovascular system [facility] Diagnosis History of ankle surgery- Primary Chronic pain of left ankle Wound dehiscence Disruption of external operation (surgical) wound 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) [facility]* Diagnosis Onset Date Resolution Status History of malignant neoplasm of right breast chronic Osteopenia chronic History of malignant neoplasm of right breast [facility] Work Phone: evaluation note* Diagnosis Preop examination [Z01.818 (ICD-10-CM)]- Primary Preoperative examination, unspecified 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 Coronary artery disease involving [place] heart without angina pectoris, unspecified vessel or lesion type [I25.10 (ICD-10-CM)] Osteomyelitis of left fibula, unspecified type (HCC) [M86.9 (ICD-10-CM)] Painful orthopaedic hardware (HCC) [T84.84XA (ICD-10-CM)] Other complications due to other internal orthopedic device, implant, and graft Painful orthopaedic hardware (HCC) Other complications due to other internal orthopedic device, implant, and graft Osteomyelitis of left fibula, unspecified type (HCC) [facility] Diagnosis Post-operative state- Primary Other postprocedural status [facility] Diagnosis Post-operative state- Primary Other postprocedural status History of ankle surgery [facility] Diagnosis Onset Date Resolution Status History of malignant neoplasm of right breast chronic Osteopenia chronic History of malignant neoplasm of right breast chronic Chest pain, unspecified acut e COLE (dyspnea on exertion) [place] acute Hyperlipidemia acute Atherosclerosis of coronary artery of [place] heart without angina pectoris chronic History of coronary artery stent placement April 122019 [facility] Work Phone: Evaluation note* Diagnosis Post-operative state- Primary Other postprocedural status Wound dehiscence Disruption of external operation (surgical) wound [facility] Diagnosis Post-operative state- Primary Other postprocedural status documented in this encounter [facility] note* Diagnosis Onset Date Resolution Status Chest pain, unspecified acut e COLE (dyspnea on exertion) [place] acute Hyperlipidemia acute Atherosclerosis of coronary artery of [place] heart without angina pectoris chronic History of coronary artery stent placement April 122019 chronic Mass of upper lobe of right lung acute Pleural effusion, right acut e History of malignant neoplasm of right breast chronic [facility] Work Phone: Evaluation note* Diagnosis Lung mass- Primary Swelling, mass, or lump in chest History of breast cancer Personal history of malignant neoplasm of breast Rheumatoid arthritis with inflammatory polyarthropathy (HCC) [facility] Diagnosis Onset Date Resolution Status Chest pain, unspecified acut e COLE (dyspnea on exertion) [place] acute Hyperlipidemia acute Atherosclerosis of coronary artery of [place] heart without angina pectoris chronic History of coronary artery stent placement April 122019 chronic Mass of upper lobe of right lung acute Pleural effusion, right acut e History of malignant neoplasm of right breast chronic Mass of upper lobe of right lung acute Pleural effusion, right acut e History of malignant neoplasm of right breast chronic History of malignant neoplasm of right breast chronic Osteopenia chronic Mass of upper lobe of right lung acute Pleural effusion, right acut e History of malignant neoplasm of right breast chronic [facility] Work Phone: Evaluation note* Diagnosis Onset Date Resolution Status Mass of upper lobe of right lung acute Pleural effusion, right acut e History of malignant neoplasm of right breast chronic Mass of upper lobe of right lung acute Pleural effusion, right acut e History of malignant neoplasm of right breast chronic History of malignant neoplasm of right breast chronic Osteopenia chronic Mass of upper lobe of right lung acute Pleural effusion, right acut e History of malignant neoplasm of right breast chronic [facility] Work Phone: Evaluation note* Diagnosis Onset Date Resolution Status Mass of upper lobe of right lung acute Pleural effusion, right acut e History of malignant neoplasm of right breast chronic Mass of upper lobe of right lung acute Pleural effusion, right acut e History of malignant neoplasm of right breast chronic History of malignant neoplasm of right breast chronic Osteopenia chronic [facility] Work Phone: Evaluation note* Diagnosis Onset Date Resolution Status Mass of upper lobe of right lung acute Pleural effusion, right acut e History of malignant neoplasm of right breast chronic Mass of upper lobe of right lung acute Pleural effusion, right acut e History of malignant neoplasm of right breast chronic History of malignant neoplasm of right breast chronic Osteopenia chronic Orthostatic hypotension acut e [facility] Work Phone: Evaluation note* Diagnosis Lung nodule- Primary Other diseases of lung, not elsewhere classified Pleural effusion Unspecified pleural effusion COLE (dyspnea on exertion) Other dyspnea and respiratory abnormality [facility] Diagnosis Onset Date Resolution Status Mass of upper lobe of right lung acute Pleural effusion, right acut e History of malignant neoplasm of right breast chronic Mass of upper lobe of right lung acute Pleural effusion, right acut e History of malignant neoplasm of right breast chronic History of malignant neoplasm of right breast chronic Osteopenia chronic Orthostatic hypotension reso lved Mass of upper lobe of right lung acute Pleural effusion, right acut e History of malignant neoplasm of right breast chronic [facility] Work Phone: Evaluation note* Diagnosis Onset Date Resolution Status Mass of upper lobe of right lung acute Pleural effusion, right acut e History of malignant neoplasm of right breast chronic History of malignant neoplasm of right breast chronic Osteopenia chronic Orthostatic hypotension reso lved Mass of upper lobe of right lung acute Pleural effusion, right acut e History of malignant neoplasm of right breast chronic Hyperlipidemia acute Atherosclerosis of coronary artery of [place] heart without angina pectoris chronic [facility] Work Phone: Evaluation note* Diagnosis Onset Date Resolution Status History of malignant neoplasm of right breast chronic Osteopenia chronic Orthostatic hypotension reso lved Mass of upper lobe of right lung acute Pleural effusion, right acut e History of malignant neoplasm of right breast chronic Hyperlipidemia acute AF (paroxysmal atrial fibrillation) chronic Atherosclerosis of coronary artery of [place] heart without angina pectoris chronic Malfunction of peripheral inserted central catheter acute COLE (dyspnea on exertion) [place] Hyperlipidemia acute Nonischemic cardiomyopathy a cute Pleural effusion, right acut e AF (paroxysmal atrial fibrillation) chronic Atherosclerosis of coronary artery of [place] heart without angina pectoris chronic Hyperlipidemia acute Nonischemic cardiomyopathy a cute Pleural effusion, right acut e AF (paroxysmal atrial fibrillation) chronic Atherosclerosis of coronary artery of [place] heart without angina pectoris [facility] Work Phone: Evaluation note* Diagnosis Onset Date Resolution Status History of malignant neoplasm of right breast chronic Osteopenia chronic Orthostatic hypotension reso lved Mass of upper lobe of right lung acute Pleural effusion, right acut e History of malignant neoplasm of right breast chronic Hyperlipidemia acute AF (paroxysmal atrial fibrillation) chronic Atherosclerosis of coronary artery of [place] heart without angina pectoris chronic Malfunction of peripheral inserted central catheter acute COLE (dyspnea on exertion) [place] Hyperlipidemia acute Nonischemic cardiomyopathy a cute Pleural effusion, right acut e AF (paroxysmal atrial fibrillation) chronic Atherosclerosis of coronary artery of [place] heart without angina pectoris chronic Hyperlipidemia acute Nonischemic cardiomyopathy a cute Pleural effusion, right acut e AF (paroxysmal atrial fibrillation) chronic Atherosclerosis of coronary artery of [place] heart without angina pectoris chronic Pleural effusion, right acut e ASHLI (acute kidney injury) [place] Complete heart block acute Near syncope acute [facility] Work Phone: Evaluation note* Diagnosis Onset Date Resolution Status History of malignant neoplasm of right breast chronic Osteopenia chronic Orthostatic hypotension reso lved Mass of upper lobe of right lung acute Pleural effusion, right acut e History of malignant neoplasm of right breast chronic Hyperlipidemia acute AF (paroxysmal atrial fibrillation) chronic Atherosclerosis of coronary artery of [place] heart without angina pectoris chronic Malfunction of peripheral inserted central catheter acute COLE (dyspnea on exertion) [place] Hyperlipidemia acute Nonischemic cardiomyopathy a cute Pleural effusion, right acut e AF (paroxysmal atrial fibrillation) chronic Atherosclerosis of coronary artery of [place] heart without angina pectoris chronic Hyperlipidemia acute Nonischemic cardiomyopathy a cute Pleural effusion, right acut e AF (paroxysmal atrial fibrillation) chronic Atherosclerosis of coronary artery of [place] heart without angina pectoris chronic Pleural effusion, right acut e ASHLI (acute kidney injury) [place] Complete heart block acute Hyponatremia acute Near syncope acute Nonischemic cardiomyopathy a cute AF (paroxysmal atrial fibrillation) chronic Atherosclerosis of coronary artery of [place] heart without angina pectoris [facility] Work Phone: Evaluation note* Diagnosis Onset Date Resolution Status History of malignant neoplasm of right breast chronic Osteopenia chronic Orthostatic hypotension reso lved Mass of upper lobe of right lung acute Pleural effusion, right acut e History of malignant neoplasm of right breast chronic Hyperlipidemia acute AF (paroxysmal atrial fibrillation) chronic Atherosclerosis of coronary artery of [place] heart without angina pectoris chronic Malfunction of peripheral inserted central catheter acute COLE (dyspnea on exertion) [place] Hyperlipidemia acute Nonischemic cardiomyopathy a cute Pleural effusion, right acut e AF (paroxysmal atrial fibrillation) chronic Atherosclerosis of coronary artery of [place] heart without angina pectoris chronic Hyperlipidemia acute Nonischemic cardiomyopathy a cute Pleural effusion, right acut e AF (paroxysmal atrial fibrillation) chronic Atherosclerosis of coronary artery of [place] heart without angina pectoris chronic Pleural effusion, right acut e ASHLI (acute kidney injury) [place] Complete heart block acute Hyponatremia acute Near syncope acute Nonischemic cardiomyopathy a cute AF (paroxysmal atrial fibrillation) chronic Atherosclerosis of coronary artery of [place] heart without angina pectoris chronic Complete heart block acute Nonischemic cardiomyopathy a cute AF (paroxysmal atrial fibrillation) chronic Complete heart block acute Nonischemic cardiomyopathy a cute AF (paroxysmal atrial fibrillation) chronic Presence of permanent cardiac pacemaker chronic [facility] Work Phone: Evaluation note* Diagnosis Onset Date Resolution Status History of malignant neoplasm of right breast chronic Osteopenia chronic Orthostatic hypotension reso lved Mass of upper lobe of right lung acute Pleural effusion, right acut e History of malignant neoplasm of right breast chronic Hyperlipidemia acute AF (paroxysmal atrial fibrillation) chronic Atherosclerosis of coronary artery of [place] heart without angina pectoris chronic Malfunction of peripheral inserted central catheter acute COLE (dyspnea on exertion) [place] Hyperlipidemia acute Nonischemic cardiomyopathy a cute Pleural effusion, right acut e AF (paroxysmal atrial fibrillation) chronic Atherosclerosis of coronary artery of [place] heart without angina pectoris chronic Hyperlipidemia acute Nonischemic cardiomyopathy a cute Pleural effusion, right acut e AF (paroxysmal atrial fibrillation) chronic Atherosclerosis of coronary artery of [place] heart without angina pectoris chronic Pleural effusion, right acut e ASHLI (acute kidney injury) [place] Complete heart block acute Hyponatremia acute Near syncope acute Nonischemic cardiomyopathy a cute AF (paroxysmal atrial fibrillation) chronic Atherosclerosis of coronary artery of [place] heart without angina pectoris chronic Complete heart block acute Nonischemic cardiomyopathy a cute AF (paroxysmal atrial fibrillation) chronic Complete heart block acute Nonischemic cardiomyopathy a cute AF (paroxysmal atrial fibrillation) chronic Presence of permanent cardiac pacemaker chronic Complete heart block acute Near syncope acute Nonischemic cardiomyopathy a cute Presence of permanent cardiac pacemaker chronic Hyperlipidemia acute Nonischemic cardiomyopathy a cute Pleural effusion, right acut e AF (paroxysmal atrial fibrillation) chronic Atherosclerosis of coronary artery of [place] heart without angina pectoris chronic Presence of permanent cardiac pacemaker chronic [facility] Work Phone: Evaluation note* Diagnosis Onset Date Resolution Status Malfunction of peripheral inserted central catheter acute COLE (dyspnea on exertion) [place] Hyperlipidemia acute Nonischemic cardiomyopathy a cute Pleural effusion, right acut e AF (paroxysmal atrial fibrillation) chronic Atherosclerosis of coronary artery of [place] heart without angina pectoris chronic Hyperlipidemia acute Nonischemic cardiomyopathy a cute Pleural effusion, right acut e AF (paroxysmal atrial fibrillation) chronic Atherosclerosis of coronary artery of [place] heart without angina pectoris chronic Pleural effusion, right acut e ASHLI (acute kidney injury) [place] Complete heart block acute Hyponatremia acute Near syncope acute Nonischemic cardiomyopathy a cute AF (paroxysmal atrial fibrillation) chronic Atherosclerosis of coronary artery of [place] heart without angina pectoris chronic Complete heart block acute Nonischemic cardiomyopathy a cute AF (paroxysmal atrial fibrillation) chronic Complete heart block acute Nonischemic cardiomyopathy a cute AF (paroxysmal atrial fibrillation) chronic Presence of permanent cardiac pacemaker chronic Complete heart block acute Near syncope acute Nonischemic cardiomyopathy a cute Presence of permanent cardiac pacemaker chronic Hyperlipidemia acute Nonischemic cardiomyopathy a cute Pleural effusion, right acut e AF (paroxysmal atrial fibrillation) chronic Atherosclerosis of coronary artery of [place] heart without angina pectoris chronic Presence of permanent cardiac pacemaker chronic COLE (dyspnea on exertion) [place] Pleural effusion, right acut e [facility] Work Phone: Evaluation note* Diagnosis Onset Date Resolution Status COLE (dyspnea on exertion) [place] Hyperlipidemia acute Nonischemic cardiomyopathy a cute Pleural effusion, right acut e AF (paroxysmal atrial fibrillation) chronic Atherosclerosis of coronary artery of [place] heart without angina pectoris chronic Hyperlipidemia acute Nonischemic cardiomyopathy a cute Pleural effusion, right acut e AF (paroxysmal atrial fibrillation) chronic Atherosclerosis of coronary artery of [place] heart without angina pectoris chronic Pleural effusion, right acut e ASHLI (acute kidney injury) [place] Complete heart block acute Hyponatremia acute Near syncope acute Nonischemic cardiomyopathy a cute AF (paroxysmal atrial fibrillation) chronic Atherosclerosis of coronary artery of [place] heart without angina pectoris chronic Complete heart block acute Nonischemic cardiomyopathy a cute AF (paroxysmal atrial fibrillation) chronic Complete heart block acute Nonischemic cardiomyopathy a cute AF (paroxysmal atrial fibrillation) chronic Presence of permanent cardiac pacemaker chronic Complete heart block acute Near syncope acute Nonischemic cardiomyopathy a cute Presence of permanent cardiac pacemaker chronic Hyperlipidemia acute Nonischemic cardiomyopathy a cute Pleural effusion, right acut e AF (paroxysmal atrial fibrillation) chronic Atherosclerosis of coronary artery of [place] heart without angina pectoris chronic Presence of permanent cardiac pacemaker chronic COLE (dyspnea on exertion) [place] Pleural effusion, right acut e [facility] Work Phone: Evaluation note* Diagnosis Onset Date Resolution Status ASHLI (acute kidney injury) [place] Complete heart block acute Hyponatremia acute Near syncope acute Nonischemic cardiomyopathy a cute AF (paroxysmal atrial fibrillation) chronic Atherosclerosis of coronary artery of [place] heart without angina pectoris chronic Complete heart block acute Nonischemic cardiomyopathy a cute AF (paroxysmal atrial fibrillation) chronic Complete heart block acute Nonischemic cardiomyopathy a cute AF (paroxysmal atrial fibrillation) chronic Presence of permanent cardiac pacemaker chronic Complete heart block acute Near syncope acute Nonischemic cardiomyopathy a cute Presence of permanent cardiac pacemaker chronic Hyperlipidemia acute Nonischemic cardiomyopathy a cute Pleural effusion, right acut e AF (paroxysmal atrial fibrillation) chronic Atherosclerosis of coronary artery of [place] heart without angina pectoris chronic Presence of permanent cardiac pacemaker chronic COLE (dyspnea on exertion) [place] Pleural effusion, right acut e COLE (dyspnea on exertion) [facility] Work Phone: Evaluation note* Diagnosis Onset Date Resolution Status Complete heart block acute Near syncope acute Nonischemic cardiomyopathy a cute Presence of permanent cardiac pacemaker chronic Hyperlipidemia acute Nonischemic cardiomyopathy a cute Pleural effusion, right acut e AF (paroxysmal atrial fibrillation) chronic Atherosclerosis of coronary artery of [place] heart without angina pectoris chronic Presence of permanent cardiac pacemaker chronic COLE (dyspnea on exertion) [place] Pleural effusion, right acut e CLOE (dyspnea on exertion) [facility] Work Phone: Evaluation note* Diagnosis Onset Date Resolution Status Complete heart block acute Near syncope acute Nonischemic cardiomyopathy a cute Presence of permanent cardiac pacemaker chronic Hyperlipidemia acute Nonischemic cardiomyopathy a cute Pleural effusion, right acut e AF (paroxysmal atrial fibrillation) chronic Atherosclerosis of coronary artery of [place] heart without angina pectoris chronic Presence of permanent cardiac pacemaker chronic COLE (dyspnea on exertion) [place] Pleural effusion, right acut e COLE (dyspnea on exertion) [place] History of malignant neoplasm of right breast chronic Osteopenia chronic Mass of upper lobe of right lung acute Pleural effusion, right acut e History of malignant neoplasm of right breast chronic Hyperlipidemia acute Nonischemic cardiomyopathy a cute Pleural effusion, right acut e AF (paroxysmal atrial fibrillation) chronic Atherosclerosis of coronary artery of [place] heart without angina pectoris chronic Presence of permanent cardiac pacemaker chronic [facility] Work Phone: Evaluation note* Diagnosis Pulmonary lesion- Primary Other diseases of lung, not elsewhere classified Pleural effusion Unspecified [facility] Onset Date Resolution Status COLE (dyspnea on exertion) [place] Pleural effusion, right acut e COLE (dyspnea on exertion) [place] History of malignant neoplasm of right breast chronic Osteopenia chronic Mass of upper lobe of right lung acute Pleural effusion, right acut e History of malignant neoplasm of right breast chronic Hyperlipidemia acute Nonischemic cardiomyopathy a cute Pleural effusion, right acut e AF (paroxysmal atrial fibrillation) chronic Atherosclerosis of coronary artery of [place] heart without angina pectoris chronic Presence of permanent cardiac pacemaker chronic Pleural effusion, right acut e [facility] Work Phone: Reason for referral (narrative)* Diagnostic Procedure Only (Routine) - Pending Review Specialty Diagnoses / Procedures Referred By Contac t Referred To Contact US IMAGING Diagnoses Wound dehiscence Decreased pedal pulses Procedures US ARTERIAL PVR LOWER NON-INVASIVE PHYSIOLOGIC STUDY EXTREMITY 3 LEVLS Marcus Mello DPM [address] [address] Us Imaging Referral ID Status Reason Start Date Expiration Date Visits Requested Visits Authorized [id number] Pending Review Auto-Generat ed Referral 2 04/17/2023 1 1 * Diagnostic Procedure Only (Routine) - Pending Review Specialty Diagnoses / Procedures Referred By Contac t Referred To Contact XR IMAGING Diagnoses History of ankle surgery Chronic pain of left ankle Procedures XR ANKLE GENERAL 3V AP/LAT/OBL LEFT RADEX ANKLE COMPLETE MINIMUM 3 VIEWS Marcus Mello DPM [address] [place] [address] Xr Imaging Referral ID Status Reason Start Date Expiration Date Visits Requested Visits Authorized [id number] Pending Review Auto-Generat ed Referral 04/17/2023 1 1 [facility] for referral (narrative)No reason for [facility] Summary Purpose Family History No Family History Records Found Relationship Condition Age at Onset Recorded Date/T jossie father Coagulation disorder Unknown Cardiac disease Unknown Advance Directives No Advanced Directives Records Found Advance Directive Response Recorded Date/ Time Advance Directives on File Yes October 18, 2019 12:34pm Advance Directives Yes January 7:24am Living Will Yes January 02 7:24am Power of Soaking Pit Operator Yes January 02, 2021 7:24am Advance Directive Response Recorded Date/ Time Advance Directives Yes January 7:24am Living Will Yes January 02 7:24am Power of Soaking Pit Operator Yes January 02, 2021 7:24am Advance Directive Response Recorded Date/ Time Advance Directives Yes January 6:24am Living Will Yes January 02 6:24am Power of Soaking Pit Operator Yes January 02, 2021 6:24am Advance Directive Response Recorded Date/ Time Advance Directives on File Yes October 18, 2019 11:34am Advance Directives Yes January 6:24am Living Will Yes January 02 6:24am Power of Soaking Pit Operator Yes January 02, 2021 6:24am Advance Directive Response Recorded Date/ Time Name of Medical Power of Soaking Pit Operator JUDY SHEN August 19, 2022 4:09pm Advance Directives Yes January 7:24am Living Will Yes August 19, 2022 4:09pm Power of Soaking Pit Operator Yes August 19 4:09pm Advance Directive Response Recorded Date/ Time Advance Directives on File Yes October 18, 2019 12:34pm Name of Medical Power of Soaking Pit Operator JUDY SHEN August 19, 2022 4:09pm Advance Directives Yes January 7:24am Living Will Yes August 19, 2022 4:09pm Power of Soaking Pit Operator Yes August 19 4:09pm Advance Directive Response Recorded Date/ Time Advance Directives on File Yes October 18, 2019 12:34pm Name of Medical Power of Soaking Pit Operator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 cardiomyopathy AF (paroxysmal atrial fibrillation) Atherosclerosis of coronary artery of [place] heart without angina pectoris Complete heart block Nonischemic cardiomyopathy AF (paroxysmal atrial fibrillation) Complete heart block Nonischemic cardiomyopathy AF (paroxysmal atrial fibrillation) Presence of permanent cardiac pacemaker Chief Complaint EORDER MALIGNANT NEOPLASM OF CENTRAL PORTION OF BREAST LUNG NODULE PORTOGRAM / CHECK TO MAKE SURE ITS WORKING ORTHOSTATIC HYPTOTENSION ORTHOSTATIC HYPTOTENSION ORTHOSTATIC HYPTOTENSION 3MO LABS PRIOR REVIEW CT PALPITATIONS ER with tachyarrythmia per [place] I480 sob ORENCIA EORDER FROM [facility] ALSO PORT REPLACEMENT chest pain, sob I2510 chest pain, sob S/P [facility] ED 01/27 CXR- Previous right effusion Amb Documentation 6 wk fu per MMM ORENCIA Pleural effusion, not elsewhere classified Pleural effusion, not elsewhere classified COMPLETE HEART BLOCK COMPLETE HEART BLOCK COMPLETE HEART BLOCK COMPLETE HEART BLOCK COMPLETE HEART BLOCK COMPLETE HEART BLOCK INPATIENT 1st day post implant check 1 wk s/p PPM implant wound check and device check ORENCIA 6 wk post PPM implant f/u EORDER 6 wk FU EORDER RIGHT PE Reason for Visit History of malignant neoplasm of right breast Osteopenia Orthostatic hypotension Mass of upper lobe of right lung Pleural effusion, right History of malignant neoplasm of right breast Hyperlipidemia AF (paroxysmal atrial fibrillation) Atherosclerosis of coronary artery of [place] heart without angina pectoris Malfunction of peripheral inserted central catheter COLE (dyspnea on exertion) Hyperlipidemia Nonischemic cardiomyopathy Pleural effusion, right AF (paroxysmal atrial fibrillation) Atherosclerosis of coronary artery of [place] heart without angina pectoris Hyperlipidemia Nonischemic cardiomyopathy Pleural effusion, right AF (paroxysmal atrial fibrillation) Atherosclerosis of coronary artery of [place] heart without angina pectoris Pleural effusion, right ASHLI (acute kidney injury) Complete heart block Hyponatremia Near syncope Nonischemic cardiomyopathy AF (paroxysmal atrial fibrillation) Atherosclerosis of coronary artery of [place] heart without angina pectoris Complete heart block Nonischemic cardiomyopathy AF (paroxysmal atrial fibrillation) Complete heart block Nonischemic cardiomyopathy AF (paroxysmal atrial fibrillation) Presence of permanent cardiac pacemaker Complete heart block Near syncope Nonischemic cardiomyopathy Presence of permanent cardiac pacemaker Hyperlipidemia Nonischemic cardiomyopathy Pleural effusion, right AF (paroxysmal atrial fibrillation) Atherosclerosis of coronary artery of [place] heart without angina pectoris Presence of permanent cardiac pacemaker Chief Complaint MALIGNANT NEOPLASM O F CENTRAL PORTION OF BREAST LUNG NODULE PORTOGRAM / CHECK TO MAKE SURE ITS WORKING ORTHOSTATIC HYPTOTENSION ORTHOSTATIC HYPTOTENSION ORTHOSTATIC HYPTOTENSION 3MO LABS PRIOR REVIEW CT PALPITATIONS ER with tachyarrythmia per KR I480 sob ORENCIA EORDER FROM [facility] ALSO PORT REPLACEMENT chest pain, sob I2510 chest pain, sob S/P [facility] ED 01/27 CXR- Previous right effusion Amb Documentation 6 wk fu per MMM ORENCIA Pleural effusion, not elsewhere classified Pleural effusion, not elsewhere classified COMPLETE HEART BLOCK COMPLETE HEART BLOCK COMPLETE HEART BLOCK COMPLETE HEART BLOCK COMPLETE HEART BLOCK COMPLETE HEART BLOCK INPATIENT 1st day post implant check 1 wk s/p PPM implant wound check and device check ORENCIA 6 wk post PPM implant f/u EORDER 6 wk FU EORDER RIGHT PE Reason for Visit History of malignant neoplasm of right breast Osteopenia Orthostatic hypotension Mass of upper lobe of right lung Pleural effusion, right History of malignant neoplasm of right breast Hyperlipidemia AF (paroxysmal atrial fibrillation) Atherosclerosis of coronary artery of [place] heart without angina pectoris Malfunction of peripheral inserted central catheter COLE (dyspnea on exertion) Hyperlipidemia Nonischemic cardiomyopathy Pleural effusion, right AF (paroxysmal atrial fibrillation) Atherosclerosis of coronary artery of [place] heart without angina pectoris Hyperlipidemia Nonischemic cardiomyopathy Pleural effusion, right AF (paroxysmal atrial fibrillation) Atherosclerosis of coronary artery of [place] heart without angina pectoris Pleural effusion, right ASHLI (acute kidney injury) Complete heart block Hyponatremia Near syncope Nonischemic cardiomyopathy AF (paroxysmal atrial fibrillation) Atherosclerosis of coronary artery of [place] heart without angina pectoris Complete heart block Nonischemic cardiomyopathy AF (paroxysmal atrial fibrillation) Complete heart block Nonischemic cardiomyopathy AF (paroxysmal atrial fibrillation) Presence of permanent cardiac pacemaker Complete heart block Near syncope Nonischemic cardiomyopathy Presence of permanent cardiac pacemaker Hyperlipidemia Nonischemic cardiomyopathy Pleural effusion, right AF (paroxysmal atrial fibrillation) Atherosclerosis of coronary artery of [place] heart without angina pectoris Presence of permanent cardiac pacemaker Chief Complaint I480 sob ORENCIA EORDER FROM [facility] ALSO PORT REPLACEMENT chest pain, sob I2510 chest pain, sob S/P [facility] ED 01/27 CXR- Previous right effusion Amb Documentation 6 wk fu per MMM ORENCIA Pleural effusion, not elsewhere classified Pleural effusion, not elsewhere classified COMPLETE HEART BLOCK COMPLETE HEART BLOCK COMPLETE HEART BLOCK COMPLETE HEART BLOCK COMPLETE HEART BLOCK COMPLETE HEART BLOCK INPATIENT 1st day post implant check 1 wk s/p PPM implant wound check and device check Pacer Check Remote ORENCIA 6 wk post PPM implant f/u Pacer Check Remote Pacer Check Remote EORDER 6 wk FU EORDER RIGHT PE Follow up AFIB Reason for Visit Malfunction of perip heral inserted central catheter COLE (dyspnea on exertion) Hyperlipidemia Nonischemic cardiomyopathy Pleural effusion, right AF (paroxysmal atrial fibrillation) Atherosclerosis of coronary artery of [place] heart without angina pectoris Hyperlipidemia Nonischemic cardiomyopathy Pleural effusion, right AF (paroxysmal atrial fibrillation) Atherosclerosis of coronary artery of [place] heart without angina pectoris Pleural effusion, right ASHLI (acute kidney injury) Complete heart block Hyponatremia Near syncope Nonischemic cardiomyopathy AF (paroxysmal atrial fibrillation) Atherosclerosis of coronary artery of [place] heart without angina pectoris Complete heart block Nonischemic cardiomyopathy AF (paroxysmal atrial fibrillation) Complete heart block Nonischemic cardiomyopathy AF (paroxysmal atrial fibrillation) Presence of permanent cardiac pacemaker Complete heart block Near syncope Nonischemic cardiomyopathy Presence of permanent cardiac pacemaker Hyperlipidemia Nonischemic cardiomyopathy Pleural effusion, right AF (paroxysmal atrial fibrillation) Atherosclerosis of coronary artery of [place] heart without angina pectoris Presence of permanent cardiac pacemaker COLE (dyspnea on exertion) Pleural effusion, right Chief Complaint I480 sob ORENCIA EORDER FROM [facility] ALSO PORT REPLACEMENT chest pain, sob I2510 chest pain, sob S/P [facility] ED 01/27 CXR- Previous right effusion Amb Documentation 6 wk fu per MMM ORENCIA Pleural effusion, not elsewhere classified Pleural effusion, not elsewhere classified COMPLETE HEART BLOCK COMPLETE HEART BLOCK COMPLETE HEART BLOCK COMPLETE HEART BLOCK COMPLETE HEART BLOCK COMPLETE HEART BLOCK INPATIENT 1st day post implant check 1 wk s/p PPM implant wound check and device check Pacer Check Remote ORENCIA 6 wk post PPM implant f/u Pacer Check Remote Pacer Check Remote EORDER 6 wk FU EORDER RIGHT PE Follow up AFIB DYSPENA Reason for Visit Malfunction of perip heral inserted central catheter COLE (dyspnea on exertion) Hyperlipidemia Nonischemic cardiomyopathy Pleural effusion, right AF (paroxysmal atrial fibrillation) Atherosclerosis of coronary artery of [place] heart without angina pectoris Hyperlipidemia Nonischemic cardiomyopathy Pleural effusion, right AF (paroxysmal atrial fibrillation) Atherosclerosis of coronary artery of [place] heart without angina pectoris Pleural effusion, right ASHLI (acute kidney injury) Complete heart block Hyponatremia Near syncope Nonischemic cardiomyopathy AF (paroxysmal atrial fibrillation) Atherosclerosis of coronary artery of [place] heart without angina pectoris Complete heart block Nonischemic cardiomyopathy AF (paroxysmal atrial fibrillation) Complete heart block Nonischemic cardiomyopathy AF (paroxysmal atrial fibrillation) Presence of permanent cardiac pacemaker Complete heart block Near syncope Nonischemic cardiomyopathy Presence of permanent cardiac pacemaker Hyperlipidemia Nonischemic cardiomyopathy Pleural effusion, right AF (paroxysmal atrial fibrillation) Atherosclerosis of coronary artery of [place] heart without angina pectoris Presence of permanent cardiac pacemaker COLE (dyspnea on exertion) Pleural effusion, right Chief Complaint sob ORENCIA EORDER FROM [facility] ALSO PORT REPLACEMENT chest pain, sob I2510 chest pain, sob S/P [facility] ED 01/27 CXR- Previous right effusion Amb Documentation 6 wk fu per MMM ORENCIA Pleural effusion, not elsewhere classified Pleural effusion, not elsewhere classified COMPLETE HEART BLOCK COMPLETE HEART BLOCK COMPLETE HEART BLOCK COMPLETE HEART BLOCK COMPLETE HEART BLOCK COMPLETE HEART BLOCK INPATIENT 1st day post implant check 1 wk s/p PPM implant wound check and device check Pacer Check Remote ORENCIA 6 wk post PPM implant f/u Pacer Check Remote Pacer Check Remote EORDER 6 wk FU EORDER RIGHT PE Follow up AFIB CARDIOVERSION DYSPENA DYSPENA DYSPENA DYSPENA Reason for Visit Malfunction of perip heral inserted central catheter COLE (dyspnea on exertion) Hyperlipidemia Nonischemic cardiomyopathy Pleural effusion, right AF (paroxysmal atrial fibrillation) Atherosclerosis of coronary artery of [place] heart without angina pectoris Hyperlipidemia Nonischemic cardiomyopathy Pleural effusion, right AF (paroxysmal atrial fibrillation) Atherosclerosis of coronary artery of [place] heart without angina pectoris Pleural effusion, right ASHLI (acute kidney injury) Complete heart block Hyponatremia Near syncope Nonischemic cardiomyopathy AF (paroxysmal atrial fibrillation) Atherosclerosis of coronary artery of [place] heart without angina pectoris Complete heart block Nonischemic cardiomyopathy AF (paroxysmal atrial fibrillation) Complete heart block Nonischemic cardiomyopathy AF (paroxysmal atrial fibrillation) Presence of permanent cardiac pacemaker Complete heart block Near syncope Nonischemic cardiomyopathy Presence of permanent cardiac pacemaker Hyperlipidemia Nonischemic cardiomyopathy Pleural effusion, right AF (paroxysmal atrial fibrillation) Atherosclerosis of coronary artery of [place] heart without angina pectoris Presence of permanent cardiac pacemaker COLE (dyspnea on exertion) Pleural effusion, right Chief Complaint ORENCIA EORDER FROM [facility] ALSO PORT REPLACEMENT chest pain, sob I2510 chest pain, sob S/P [facility] ED 01/27 CXR- Previous right effusion Amb Documentation 6 wk fu per MMM ORENCIA Pleural effusion, not elsewhere classified Pleural effusion, not elsewhere classified COMPLETE HEART BLOCK COMPLETE HEART BLOCK COMPLETE HEART BLOCK COMPLETE HEART BLOCK COMPLETE HEART BLOCK COMPLETE HEART BLOCK INPATIENT 1st day post implant check 1 wk s/p PPM implant wound check and device check Pacer Check Remote ORENCIA 6 wk post PPM implant f/u Pacer Check Remote Pacer Check Remote EORDER 6 wk FU EORDER RIGHT PE Follow up AFIB CARDIOVERSION DYSPENA DYSPENA DYSPENA DYSPENA Reason for Visit Malfunction of perip heral inserted central catheter COLE (dyspnea on exertion) Hyperlipidemia Nonischemic cardiomyopathy Pleural effusion, right AF (paroxysmal atrial fibrillation) Atherosclerosis of coronary artery of [place] heart without angina pectoris Hyperlipidemia Nonischemic cardiomyopathy Pleural effusion, right AF (paroxysmal atrial fibrillation) Atherosclerosis of coronary artery of [place] heart without angina pectoris Pleural effusion, right ASHLI (acute kidney injury) Complete heart block Hyponatremia Near syncope Nonischemic cardiomyopathy AF (paroxysmal atrial fibrillation) Atherosclerosis of coronary artery of [place] heart without angina pectoris Complete heart block Nonischemic cardiomyopathy AF (paroxysmal atrial fibrillation) Complete heart block Nonischemic cardiomyopathy AF (paroxysmal atrial fibrillation) Presence of permanent cardiac pacemaker Complete heart block Near syncope Nonischemic cardiomyopathy Presence of permanent cardiac pacemaker Hyperlipidemia Nonischemic cardiomyopathy Pleural effusion, right AF (paroxysmal atrial fibrillation) Atherosclerosis of coronary artery of [place] heart without angina pectoris Presence of permanent cardiac pacemaker COLE (dyspnea on exertion) Pleural effusion, right Chief Complaint chest pain, sob [id number] chest pain, sob S/P [facility] ED 01/27 CXR- Previous right effusion Amb Documentation 6 wk fu per MMM ORENCIA Pleural effusion, not elsewhere classified Pleural effusion, not elsewhere classified COMPLETE HEART BLOCK COMPLETE HEART BLOCK COMPLETE HEART BLOCK COMPLETE HEART BLOCK COMPLETE HEART BLOCK COMPLETE HEART BLOCK INPATIENT 1st day post implant check 1 wk s/p PPM implant wound check and device check Pacer Check Remote ORENCIA 6 wk post PPM implant f/u Pacer Check Remote Pacer Check Remote EORDER 6 wk FU EORDER RIGHT PE Follow up AFIB CARDIOVERSION DYSPENA DYSPENA DYSPENA DYSPENA follow up from test ORENCIA Reason for Visit COLE (dyspnea on exer tion) Hyperlipidemia Nonischemic cardiomyopathy Pleural effusion, right AF (paroxysmal atrial fibrillation) Atherosclerosis of coronary artery of [place] heart without angina pectoris Hyperlipidemia Nonischemic cardiomyopathy Pleural effusion, right AF (paroxysmal atrial fibrillation) Atherosclerosis of coronary artery of [place] heart without angina pectoris Pleural effusion, right ASHLI (acute kidney injury) Complete heart block Hyponatremia Near syncope Nonischemic cardiomyopathy AF (paroxysmal atrial fibrillation) Atherosclerosis of coronary artery of [place] heart without angina pectoris Complete heart block Nonischemic cardiomyopathy AF (paroxysmal atrial fibrillation) Complete heart block Nonischemic cardiomyopathy AF (paroxysmal atrial fibrillation) Presence of permanent cardiac pacemaker Complete heart block Near syncope Nonischemic cardiomyopathy Presence of permanent cardiac pacemaker Hyperlipidemia Nonischemic cardiomyopathy Pleural effusion, right AF (paroxysmal atrial fibrillation) Atherosclerosis of coronary artery of [place] heart without angina pectoris Presence of permanent cardiac pacemaker COLE (dyspnea on exertion) Pleural effusion, right Chief Complaint COMPLETE HEART BLOCK COMPLETE HEART BLOCK COMPLETE HEART BLOCK COMPLETE HEART BLOCK COMPLETE HEART BLOCK INPATIENT 1st day post implant check 1 wk s/p PPM implant wound check and device check Pacer Check Remote ORENCIA 6 wk post PPM implant f/u Pacer Check Remote Pacer Check Remote EORDER 6 wk FU EORDER RIGHT PE Follow up AFIB CARDIOVERSION DYSPENA DYSPENA DYSPENA DYSPENA [facility] for [facility] ASHLI (acute kidney in jury) Complete heart block Hyponatremia Near syncope Nonischemic cardiomyopathy AF (paroxysmal atrial fibrillation) Atherosclerosis of coronary artery of [place] heart without angina pectoris Complete heart block Nonischemic cardiomyopathy AF (paroxysmal atrial fibrillation) Complete heart block Nonischemic cardiomyopathy AF (paroxysmal atrial fibrillation) Presence of permanent cardiac pacemaker Complete heart block Near syncope Nonischemic cardiomyopathy Presence of permanent cardiac pacemaker Hyperlipidemia Nonischemic cardiomyopathy Pleural effusion, right AF (paroxysmal atrial fibrillation) Atherosclerosis of coronary artery of [place] heart without angina pectoris Presence of permanent cardiac pacemaker COLE (dyspnea on exertion) Pleural effusion, right COLE (dyspnea on exertion) Chief Complaint ORENCIA 6 wk post PPM implant f/u Pacer Check Remote Pacer Check Remote EORDER 6 wk FU EORDER RIGHT PE Follow up AFIB CARDIOVERSION DYSPENA DYSPENA DYSPENA DYSPENA follow up from test ORECOIA ORENCIA PLEURAL EFFUSION Reason for Visit Complete heart block Near syncope Nonischemic cardiomyopathy Presence of permanent cardiac pacemaker Hyperlipidemia Nonischemic cardiomyopathy Pleural effusion, right AF (paroxysmal atrial fibrillation) Atherosclerosis of coronary artery of [place] heart without angina pectoris Presence of permanent cardiac pacemaker COLE (dyspnea on exertion) Pleural effusion, right COLE (dyspnea on exertion) Chief Complaint 6 wk post PPM implan t f/u Pacer Check Remote Pacer Check Remote EORDER 6 wk FU EORDER RIGHT PE Follow up AFIB CARDIOVERSION DYSPENA DYSPENA DYSPENA DYSPENA [facility] MALIGNANT NEOPLASM OF CENTRAL PORTION OF BREAST 6MO LABS REVIEW CT 3 M FU PLUREL INFUSSION Reason for Visit Complete heart block Near syncope Nonischemic cardiomyopathy Presence of permanent cardiac pacemaker Hyperlipidemia Nonischemic cardiomyopathy Pleural effusion, right AF (paroxysmal atrial fibrillation) Atherosclerosis of coronary artery of [place] heart without angina pectoris Presence of permanent cardiac pacemaker COLE (dyspnea on exertion) Pleural effusion, right COLE (dyspnea on exertion) History of malignant neoplasm of right breast Osteopenia Mass of upper lobe of right lung Pleural effusion, right History of malignant neoplasm of right breast Hyperlipidemia Nonischemic cardiomyopathy Pleural effusion, right AF (paroxysmal atrial fibrillation) Atherosclerosis of coronary artery of [place] heart without angina pectoris Presence of permanent cardiac pacemaker Chief Complaint Follow up AFIB CARDIOVERSION DYSPENA DYSPENA DYSPENA DYSPENA follow up from test ORENCIA ORENCIA PLEURAL EFFUSION MALIGNANT NEOPLASM OF CENTRAL PORTION OF BREAST 6MO LABS REVIEW CT 3 M FU PLUREL INFUSSION E -LAB AND XRAY FROM CANDELARIA-S/O FROM PONCE R PLEURAL EFFUSION R PLEURAL EFFUSION Reason for Visit COEL (dyspnea on exer tion) Pleural effusion, right COLE (dyspnea on exertion) History of malignant neoplasm of right breast Osteopenia Mass of upper lobe of right lung Pleural effusion, right History of malignant neoplasm of right breast Hyperlipidemia Nonischemic cardiomyopathy Pleural effusion, right AF (paroxysmal atrial fibrillation) Atherosclerosis of coronary artery of [place] heart without angina pectoris Presence of permanent cardiac pacemaker Pleural effusion, right Chief Complaint Admit Date Pacer Check Remote April 21, 2024 2:00am 3 M FU May 01, 2024 1:24pm 2 DRS/ 2ORDERS June 02, 2024 1 1:17am Diplopia, R/O CVA June 14, 2024 11:30am DIPLOPIA- EORDER LABS AND XRAY July 9:24am Reason for Visit Admit Date Hyperlipidemia May 01, 2024 1:24pm Nonischemic cardiomyopathy April 1:24pm Pleural effusion, right May 01, 2 024 1:24pm AF (paroxysmal atrial fibrillation) Dece mber 2023 1:24pm Atherosclerosis of coronary artery of [place] heart without angina pectoris May 01, 2024 1:24pm Presence of permanent cardiac pacemaker May 01, 2024 1:24pm Chief Complaint Admit Date Pacer Check Remote April 21, 2024 2:00am 3 M FU May 01, 2024 1:24pm 2 DRS/ 2ORDERS June 02, 2024 1 1:17am Diplopia, R/O CVA June 14, 2024 11:30am DIPLOPIA- EORDER LABS AND XRAY July 9:24am Recent pneumonia, hx pleural effusions, hx CHF July 22, 2024 10:40am FALL July 23, 2024 2:2 5pm Chief Complaint Admit Date Pacer Check Remote April 21, 2024 2:00am 3 M FU May 01, 2024 1:24pm 2 DRS/ 2ORDERS June 02, 2024 1 1:17am Diplopia, R/O CVA June 14, 2024 11:30am DIPLOPIA- EORDER LABS AND XRAY July 9:24am Pacer Check Remote July 21, 2024 2:0 0am Recent pneumonia, hx pleural effusions, hx CHF July 22, 2024 10:40am FALL July 23, 2024 2:2 5pm Chief Complaint Admit Date Pacer Check Remote April 21, 2024 2:00am 3 M FU May 01, 2024 1:24pm 2 DRS/ 2ORDERS June 02, 2024 1 1:17am Diplopia, R/O CVA June 14, 2024 11:30am DIPLOPIA- EORDER LABS AND XRAY July 9:24am Pacer Check Remote July 21, 2024 2:0 0am Recent pneumonia, hx pleural effusions, hx CHF July 22, 2024 10:40am FALL July 23, 2024 2:2 5pm EORDER July 28, 2024 11: 29am Chief Complaint Admit Date 2 DRS/ 2ORDERS June 02, 2024 1 1:17am Diplopia, R/O CVA June 14, 2024 11:30am DIPLOPIA- EORDER LABS AND XRAY July 9:24am Pacer Check Remote July 21, 2024 2:0 0am Recent pneumonia, hx pleural effusions, hx CHF July 22, 2024 10:40am FALL July 23, 2024 2:2 5pm EORDER July 28, 2024 11: 29am 1 Y FU September 12, 2024 11:05 am Additional Source Comments INFORMATION SOURCE (unrecogn ized section and content) DATE CREATED AUTHOR 10/29/2017 [facility] DATE CREATED AUTHOR AUTHOR'S ORGANIZ ATION 04/02/2022 [facility] DATE CREATED AUTHOR AUTHOR'S ORGANIZ ATION 09/09/2022 [facility] DATE CREATED AUTHOR AUTHOR'S ORGANIZ ATION 08/04/2023 [facility] DATE CREATED AUTHOR AUTHOR'S ORGANIZ ATION 10/04/2024 [facility] Goals (unrecognized section and content) Goals may be documented in a n alternate sectionGoals may be documented in an alternate sectionGoals may be documented in an alternate sectionGoals may be documented in an alternate sectionGoals may be documented in an alternate sectionGoals may be documented in an alternate sectionGoals may be documented in an alternate sectionGoals may be documented in an alternate sectionGoals may be documented in an alternate sectionGoals may be documented in an alternate sectionGoals may be documented in an alternate sectionGoals may be documented in an alternate sectionGoals may be documented in an alternate sectionGoals may be documented in an alternate sectionGoals may be documented in an alternate sectionGoals may be documented in an alternate sectionGoals may be documented in an alternate sectionGoals may be documented in an alternate sectionGoals may be documented in an alternate sectionGoals may be documented in an alternate sectionGoals may be documented in an alternate sectionGoals may be documented in an alternate sectionGoals may be documented in an alternate sectionGoals may be documented in an alternate sectionGoals may be documented in an alternate sectionGoals may be documented in an alternate sectionGoals may be documented in an alternate sectionGoals may be documented in an alternate sectionGoals may be documented in an alternate sectionGoals may be documented in an alternate sectionGoals may be documented in an alternate sectionGoals may be documented in an alternate sectionGoals may be documented in an alternate sectionGoals may be documented in an alternate sectionGoals may be documented in an alternate section Source Comments (unrecognize d section and content) In the event this informatio n is protected by the Federal Confidentiality of Alcohol and Drug Abuse Patient Records regulations: The Federal rules restrict any use of the information to criminally investigate or prosecute any alcohol or drug abuse patient.[facility] the event this information is protected by the Federal Confidentiality of Alcohol and Drug Abuse Patient Records regulations: The Federal rules restrict any use of the information to criminally investigate or prosecute any alcohol or drug abuse patient.[facility] [place] the event this information is protected by the Federal Confidentiality of Alcohol and Drug Abuse Patient Records regulations: The Federal rules restrict any use of the information to criminally investigate or prosecute any alcohol or drug abuse patient.[facility] [place] the event this information is protected by the Federal Confidentiality of Alcohol and Drug Abuse Patient Records regulations: The Federal rules restrict any use of the information to criminally investigate or prosecute any alcohol or drug abuse patient.[facility] [place] the event this information is protected by the Federal Confidentiality of Alcohol and Drug Abuse Patient Records regulations: The Federal rules restrict any use of the information to criminally investigate or prosecute any alcohol or drug abuse patient.[facility] [place] the event this information is protected by the Federal Confidentiality of Alcohol and Drug Abuse Patient Records regulations: The Federal rules restrict any use of the information to criminally investigate or prosecute any alcohol or drug abuse patient.[facility] the event this information is protected by the Federal Confidentiality of Alcohol and Drug Abuse Patient Records regulations: The Federal rules restrict any use of the information to criminally investigate or prosecute any alcohol or drug abuse patient.[facility] [place] the event this information is protected by the Federal Confidentiality of Alcohol and Drug Abuse Patient Records regulations: The Federal rules restrict any use of the information to criminally investigate or prosecute any alcohol or drug abuse patient.[facility] [place] the event this information is protected by the Federal Confidentiality of Alcohol and Drug Abuse Patient Records regulations: The Federal rules restrict any use of the information to criminally investigate or prosecute any alcohol or drug abuse patient.[facility] [place] the event this information is protected by the Federal Confidentiality of Alcohol and Drug Abuse Patient Records regulations: The Federal rules restrict any use of the information to criminally investigate or prosecute any alcohol or drug abuse patient.[facility] [place] Reason for Visit (unrecogniz ed section and content) Reason Comments Orders Reason Comments New Reason Comments Follow Up [...] history of malignant neoplasm of breast Procedures [place] OFFICE/OUTPATIENT NEW MODERATE MDM 45-59 MINUTES Matteo Jonas. [address] [place] [address] [facility] [address] [place] [address] Referral ID Status Reason Start Date Expiration Date V isits Requested Visits Authorized [id number] Pending Review 09/15/2022 09/15/2023 1 1 Reason Onset Date Comments Care Coordination 09/30/2022 Lung Nodule Fo llow Up Reason Comments Results Reason Onset Date Comments Care Coordination 06/30/2023 Care Teams (unrecognized sec tion and content) Under Cutting Machine Operator Relationship Specialty Start Date End Date Teagan Hall [address] [place], [place] [id number] PCP - General 08/13/00 Under Cutting Machine Operator Relationship Specialty Start Date End Date Teagan Hall [address] [place], [place] [id number] PCP - General 08/13/00 Under Cutting Machine Operator Relationship Specialty Start Date End Date JoséTeagan martinez [address] [place] [address] PCP - General 08/13/00 Team Status: Active Member Role Status Dates Dr. Teagan Hall MD Family Provider Active Dr. Teagan Hall MD Primary Care Provider Active Team Status: Active Member Role Status Dates Dr. Teagan Hall MD Primary Care Provider Active Dr. Michael Wright MD Attending Provider Active Dr. Chucho Shane MD Referring Provider Active Team Status: Inactive Member Role Status Dates Dr. Teagan Hall MD Primary Care Provider, Referrin g Provider Active Dr. Matteo Jonas MD Attending Provider Active Team Status: Active Member Role Status Dates Dr. Teagan Hall MD Primary Care Prov ider, Family Provider, Referring Provider Active Julieth Gutierres NATIONAL BUSINESS DIRECTOR, NATIONAL BUSINESS DIRECTOR-C Attending Provider Active Team Status: Inactive Member Role Status Dates Dr. Teagan Hall MD Primary Care Provider Active Dr. Chucho Shane MD Attending Provider Active Team Status: Inactive Member Role Status Dates Dr. Teagan Hall MD Primary Care Provider Active Dr. Leena Serra MD Attending Provider, Referring Provider Active Under Cutting Machine Operator Relationship Specialty Start Date End Date Teagan Hall [address] [place] [address] PCP - General 08/13/00 Under Cutting Machine Operator Relationship Specialty Start Date End Date Teagan Hall [address] [place] [address] PCP - General 08/13/00 Under Cutting Machine Operator Relationship Specialty Start Date End Date HaileeTeagan lux [address] [place] [address] PCP - General 08/13/00 Team Status: Inactive Member Role Status Dates Dr. Teagan Hall MD Primary Care Provider, Referrin g Provider Active Dr. Chucho Shane MD Attending Provider Active Team Status: Active Member Role Status Dates Dr. Teagan Hall MD Primary Care Provider Active Holli Morillo Attending Provider Active Team Status: Inactive Member Role Status Dates Dr. Teagan Hall MD Primary Care Prov ider, Attending Provider, Referring Provider Active Under Cutting Machine Operator Relationship Specialty Start Date End Date Teagan Hall [address] [place], [place] [id number] PCP - General 08/13/00 Team Status: Active Member Role Status Dates Dr. Teagan Hall MD Primary Care Provider Active Dr. Leena Serra MD Attending Provider, Referring Provider Active Team Status: Inactive Member Role Status Dates Dr. Teagan Hall MD Primary Care Provider Active Dr. Henrry Cano DO Emergency Provider Active Under Cutting Machine Operator Relationship Specialty Start Date End Date Teagan Hall [address] [place] [phone] PCP - General Family Medicine 09/16/22 Team Status: Inactive Member Role Status Dates Dr. Teagan Hall MD Primary Care Provider Active Dr. Henrry Cano DO Attending Provider, Emergency Provider Active Team Status: Inactive Member Role Status Dates Dr. Teagan Hall MD Primary Care Provider Active Dr. Matteo Jonas MD Attending Provider, Referring Pro vider Active Under Cutting Machine Operator Relationship Specialty Start Date End Date Teagan Hall [address] [place] [phone] PCP - General Family Medicine 09/16/22 Team Status: Inactive Member Role Status Dates Dr. Teagan Hall MD Primary Care Provider Active Dr. Seth Garcia MD Emergency Provider Active Team Status: Inactive Member Role Status Dates Dr. Teagan Hall MD Primary Care Provider Active Dr. Seth Garcia MD Attending Provider, Emergency Provider Active Under Cutting Machine Operator Relationship Specialty Start Date End Date Teagan Hall [address] [place] [phone] PCP - General Family Medicine 09/16/22 Under Cutting Machine Operator Relationship Specialty Start Date End Date Rafael Teagan Franks [address] [place] [phone] PCP - General Family Medicine 09/16/22 Team Status: Active Member Role Status Dates Dr. Teagan Hall MD Primary Care Provider Active Dr. Matteo Jonas MD Attending Provider, Referring Pro vider Active Team Status: Active Member Role Status Dates Dr. Teagan Hall MD Primary Care Provider Active Dr. Henrry Cano DO Emergency Provider Active Dr. Saravanan Monzon MD Admit Provider, Attending Provider Active Team Status: Active Member Role Status Dates Dr. Teagan Hall MD Primary Care Provider, Referrin g Provider Active Dr. Matteo Jonas MD Attending Provider Active Team Status: Active Member Role Status Dates Dr. Teagan Hall MD Primary Care Provider Active Dr. Henrry Cano DO Emergency Provider Active Dr. Saravanan Monzon MD Admit Provi conor, Attending Provider, Other Provider Active Team Status: Inactive Member Role Status Dates Dr. Teagan Hall MD Primary Care Provider Active Dr. Henrry Cano DO Emergency Provider Active Dr. Saravanan Monzon MD Admit Provider, Attending Provider Active Team Status: Inactive Member Role Status Dates Dr. Teagan Hall MD Primary Care Provider Active Dr. Anant Cooper MD Emergency Provider Active Team Status: Inactive Member Role Status Dates Dr. Teagan Hall MD Primary Care Provider, Referrin g Provider Active Holli Gaona PA, PA Attending Provider Active Team Status: Inactive Member Role Status Dates Dr. Teagan Hall MD Primary Care Provider Active Dr. Anant Cooper MD Attending Provider, Emergency Provi conor Active Team Status: Inactive Member Role Status Dates Dr. Teagan Hall MD Primary Care Provider Active Holli Gaona PA, PA Attending Provider, Referr ing Provider Active Team Status: Inactive Member Role Status Dates Dr. Teagan Hall MD Primary Care Provider Active Dr. Cj Dougherty DO Emergency Provider Active Team Status: Inactive Member Role Status Dates Dr. Teagan Hall MD Primary Care Provider, Referrin g Provider Active Dr. Dustin Perez MD Attending Provider Active Team Status: Active Member Role Status Dates Dr. Teagan Hall MD Primary Care Provider Active Dr. Miriam Reyes MD Referring Provider, Emergency Provider Active Dr. Aden Marquez MD Attending Provider Active Team Status: Inactive Member Role Status Dates Dr. Teagan Hall MD Primary Care Provider, Referrin g Provider Active Sharad Londono NATIONAL BUSINESS DIRECTOR, NATIONAL BUSINESS DIRECTOR-C Attending Provider Active Team Status: Active Member Role Status Dates Dr. Teagan Hall MD Primary Care Provider Active Holli Gaona PA, PA Other Provider Active Dr. Elias Arevalo MD Attending Provider, Referring Pro vider Active Team Status: Active Member Role Status Dates Dr. Teagan Hall MD Primary Care Provider Active Sharad Londono NATIONAL BUSINESS DIRECTOR, NATIONAL BUSINESS DIRECTOR-C Attending Provider Active Team Status: Inactive Member Role Status Dates Dr. Teagan Hall MD Primary Care Provider Active Dr. Miriam Reyes MD Attending Provider, Emergency Provider Active Team Status: Inactive Member Role Status Dates Dr. Teagan Hall MD Primary Care Provider Active Sharad Londono NATIONAL BUSINESS DIRECTOR, NATIONAL BUSINESS DIRECTOR-C Attending Provider, Referring Pro vider Active Team Status: Inactive Member Role Status Dates Dr. Teagan Hall MD Primary Care Provider Active Dr. Cj Dougherty DO Attending Provider, Emergency Pr ovider Active Team Status: Inactive Member Role Status Dates Dr. Teagan Hall MD Primary Care Provider Active Dr. Leena Serra MD Attending Provider, Referring Provider Active Sharad Londono NATIONAL BUSINESS DIRECTOR, NATIONAL BUSINESS DIRECTOR-C Other Provider Active Team Status: Active Member Role Status Dates Dr. Teagan Hall MD Primary Care Provider Active Holli Gaona PA, PA Referring Provider, Other Provider Active Kayleigh Juarez , MARLENE-C Attending Provider Active Team Status: Active Member Role Status Dates Dr. Teagan Hall MD Primary Care Provider Active Dr. Seth Garcia MD Emergency Provider Active Dr. Matteo Anderson MD Admit Provider, Attending Pro vider Active Team Status: Active Member Role Status Dates Dr. Teagan Hall MD Primary Care Provider Active Holli Gaona PA, PA Attending Provider, Referr ing Provider Active Team Status: Active Member Role Status Dates Dr. Teagan Hall MD Primary Care Provider Active Dr. Seth Garcia MD Emergency Provider Active Dr. Matteo Anderson MD Admit Provider, Attending Provider, Other Provider Active Team Status: Active Member Role Status Dates Dr. Teagan Hall MD Primary Care Provider Active Dr. Seth Garcia MD Emergency Provider Active Dr. Matteo Anderson MD Admit Provider, Other Provide r Active Dr. Jesi Dunham MD Other Provider Active Dr. Michael Sinclair DO Other Provider Active Dr. Elias Arevalo MD Attending Provider Active Team Status: Active Member Role Status Dates Dr. Teagan Hall MD Primary Care Provider Active Dr. Seth Garcia MD Emergency Provider Active Dr. Matteo Anderson MD Admit Provider, Other Provide r Active Dr. Jesi Dunham MD Other Provider Active Dr. Michael Sinclair DO Attending Provider Active Team Status: Inactive Member Role Status Dates Dr. Teagan Hall MD Primary Care Provider, Referrin g Provider Active Iza Pagan Attending Provider Active Team Status: Active Member Role Status Dates Dr. Teagan Hall MD Primary Care Provider Active Dr. Seth Garcia MD Emergency Provider Active Dr. Matteo Anderson MD Admit Provider, Other Provide r Active Dr. Jesi Dunham MD Other Provider Active Dr. Michael Sinclair DO Attending Provider, Other Provid er Active Team Status: Active Member Role Status Dates Dr. Teagan Hall MD Primary Care Provider Active Dr. Seth Garcia MD Emergency Provider Active Dr. Matteo Anderson MD Admit Provider, Other Provide r Active Dr. Michael Sinclair DO Attending Provider, Other Provid er Active Dr. Jesi Dunham MD Other Provider Active Team Status: Active Member Role Status Dates Dr. Teagan Hall MD Primary Care Provider Active Dr. Seth Garcia MD Emergency Provider Active Dr. Matteo Anderson MD Admit Provider, Other Provide r Active Dr. Michael Sinclair DO Other Provider Active Dr. Jesi Dunham MD Other Provider Active Dr. Elias Arevalo MD Attending Provider Active Team Status: Inactive Member Role Status Dates Dr. Teagan Hall MD Primary Care Provider Active Dr. Seth Garcia MD Emergency Provider Active Dr. Matteo Anderson MD Admit Provider, Other Provide r Active Dr. Michael Sinclair DO Attending Provider Active Dr. Jesi Dunham MD Other Provider Active Team Status: Inactive Member Role Status Dates Dr. Teagan Hall MD Primary Care Provider Active Mary Zapien NATIONAL BUSINESS DIRECTOR, NATIONAL BUSINESS DIRECTOR-C Attending Provider, Referring P rovider Active Dr. Leena Serra MD Other Provider Active Team Status: Inactive Member Role Status Dates Dr. Teagan Hall MD Primary Care Provider Active Iza Pagan Active Dr. Elias Arevalo MD Attending Provider, Referring Pro vider Active Team Status: Inactive Member Role Status Dates Dr. Teagan Hall MD Primary Care Provider, Referrin g Provider Active Mariely Petersen NATIONAL BUSINESS DIRECTOR, NATIONAL BUSINESS DIRECTOR-C Attending Provider Active Team Status: Active Member Role Status Dates Dr. Teagan Hall MD Primary Care Provider Active Dr. Elias Arevalo MD Attending Provider, Referring Pro vider Active Team Status: Inactive Member Role Status Dates Dr. Teagan Hall MD Primary Care Provider Active Dr. Elias Arevalo MD Attending Provider Active Team Status: Inactive Member Role Status Dates Dr. Teagan Hall MD Primary Care Provider Active Mary Zapien NATIONAL BUSINESS DIRECTOR, NATIONAL BUSINESS DIRECTOR-C Attending Provider, Referring P rovider Active Team Status: Inactive Member Role Status Dates Dr. Teagan Hall MD Primary Care Provider Active Dr. lEias Arevalo MD Attending Provider, Referring Pro vider Active Team Status: Active Member Role Status Dates Dr. Teagan Hall MD Primary Care Provider Active Mariely Petersen NATIONAL BUSINESS DIRECTOR, NATIONAL BUSINESS DIRECTOR-C Attending Provider, Referrin g Provider Active Team Status: Active Member Role Status Dates Dr. Teagan Hall MD Primary Care Provider Active Mariely Petersen NATIONAL BUSINESS DIRECTOR, NATIONAL BUSINESS DIRECTOR-C Referring Provider, Raina Pr ovider Active Dr. Ash Loving DO Attending Provider Active Team Status: Active Member Role Status Dates Dr. Teagan Hall MD Primary Care Provider Active Dr. Jesi Dunham MD Attending Provider Active Dr. Elias Arevalo MD Referring Provider Active Team Status: Inactive Member Role Status Dates Dr. Teagan Hall MD Primary Care Provider Active Mariely Petersen NATIONAL BUSINESS DIRECTOR, NATIONAL BUSINESS DIRECTOR-C Attending Provider, Referrin g Provider Active Team Status: Inactive Member Role Status Dates Dr. Teagan Hall MD Primary Care Provider, Referrin g Provider Active Dr. Aden Marquez MD Attending Provider Active Under Cutting Machine Operator Relationship Specialty Start Date End Date Teagan Hall [address] [place] [phone] PCP - General Family Medicine 09/16/22 Team Status: Inactive Member Role Status Dates Dr. Teagan Hall MD Primary Care Provider Active Holli JOEL PA Attending Provider, Referr ing Provider Active Dr. Leena Serra MD Other Provider Active Team Status: Active Member Role Status Dates Dr. Teagan Hall MD Primary Care Provider Active Team Status: Inactive Member Role Status Dates Dr. Teagan Hall MD Primary Care Provider Active Start: April 21, 2024 End: April 21, 2024 Dr. Elias Arevalo MD Attending Provider Active S tart: April 21, 2024 End: April 21, 2024 Dr. Elias Arevalo MD Referring Provider Active S tart: April 21, 2024 End: April 21, 2024 Team Status: Inactive Member Role Status Dates Dr. Teagan Hall MD Primary Care Provider Active Start: May 01, 2024 End: May 01, 2024 Dr. Teagan Hall MD Referring Provider Active Start: May 01, 2024 End: May 01, 2024 Holli JOEL, PA Attending Provider Active Start: May 01, 2024 End: May 01, 2024 Team Status: Inactive Member Role Status Dates Dr. Teagan Hall MD Primary Care Provider Active Start: June 02, 2024 End: June 02, 2024 Dr. Leena Serra MD Attending Provider Active Start: June 02, 2024 End: June 02, 2024 Dr. Leena Serra MD Referring Provider Active Start: June 02, 2024 End: June 02, 2024 Dr. Tripp Childress MD Other Provider Active Star t: June 02, 2024 End: June 02, 2024 Team Status: Inactive Member Role Status Dates Dr. Teagan Hall MD Primary Care Provider Active Start: June 14, 2024 End: June 14, 2024 Dr. Tripp Childress MD Attending Provider Active Start: June 14, 2024 End: June 14, 2024 Dr. Tripp Childress MD Referring Provider Active Start: June 14, 2024 End: June 14, 2024 Team Status: Inactive Member Role Status Dates Dr. Teagan Hall MD Primary Care Provider Active Start: July 04, 2024 End: July 04, 2024 Dr. Tripp Childress MD Attending Provider Active Start: July 04, 2024 End: July 04, 2024 Dr. Tripp Childress MD Referring Provider Active Start: July 04, 2024 End: July 04, 2024 Sharad Londono NATIONAL BUSINESS DIRECTOR, NATIONAL BUSINESS DIRECTOR-C Other Provider Active Start : July 04, 2024 End: July 04, 2024 Team Status: Active Member Role Status Dates Dr. Teagan Hall MD Primary Care Provider Active Start: July 22, 2024 Holli Gaona PA PA Attending Provider Active Start: July 22, 2024 Holli Gaona PA, PA Referring Provider Active Start: July 22, 2024 Team Status: Inactive Member Role Status Dates Dr. Teagan Hall MD Primary Care Provider Active Start: July 23, 2024 End: July 23, 2024 Dr. Anant Cooper MD Emergency Provider Active Sta rt: July 23, 2024 End: July 23, 2024 Team Status: Inactive Member Role Status Dates Dr. Teagan Hall MD Primary Care Provider Active Start: July 21, 2024 End: July 21, 2024 Dr. Elias Arevalo MD Attending Provider Active S tart: July 21, 2024 End: July 21, 2024 Team Status: Inactive Member Role Status Dates Dr. Teagan Hall MD Primary Care Provider Active Start: July 22, 2024 End: July 22, 2024 Holli Gaona PA, PA Attending Provider Active Start: July 22, 2024 End: July 22, 2024 Holli Gaona PA, PA Referring Provider Active Start: July 22, 2024 End: July 22, 2024 Team Status: Inactive Member Role Status Dates Dr. Teagan Hall MD Primary Care Provider Active Start: July 23, 2024 End: July 23, 2024 Dr. Anant Cooper MD Attending Provider Active Sta rt: July 23, 2024 End: July 23, 2024 Dr. Anant Cooper MD Emergency Provider Active Sta rt: July 23, 2024 End: July 23, 2024 Team Status: Inactive Member Role Status Dates Dr. Teagan Hall MD Primary Care Provider Active Start: July 28, 2024 End: July 28, 2024 Sharad Londono NATIONAL BUSINESS DIRECTOR, NATIONAL BUSINESS DIRECTOR-C Attending Provider Active S tart: July 28, 2024 End: July 28, 2024 Sharad Londono NATIONAL BUSINESS DIRECTOR, NATIONAL BUSINESS DIRECTOR-C Referring Provider Active S tart: July 28, 2024 End: July 28, 2024 Team Status: Inactive Member Role Status Dates Dr. Teagan Hall MD Primary Care Provider Active Start: July 21, 2024 End: July 21, 2024 Dr. Elias Arevalo MD Attending Provider Active S tart: July 21, 2024 End: July 21, 2024 Dr. Elias Arevalo MD Referring Provider Active S tart: July 21, 2024 End: July 21, 2024 Team Status: Inactive Member Role Status Dates Dr. Teagan Hall MD Primary Care Provider Active Start: September 12, 2024 End: September 12, 2024 Dr. Teagan Hall MD Referring Provider Active Start: September 12, 2024 End: September 12, 2024 Dr. Elias Arevalo MD Attending Provider Active S tart: September 12, 2024 End: September 12, 2024 FOR RECORDS PERTAINING TO PATIENTS WHO ARE [...] BE BASED ON THE PRIMARY CLINICAL RECORDS. [facility] [employer] [facility]. provides no warranty or guarantee of the accuracy or completeness of information in this document.
[2024-10-17 15:06] LABS: Total Bilirubin 0.92 mg/dL (0.00-1.30)
[2024-10-18 07:07] LABS: CA 27.29 43.7 U/mL (0.0-38.6)
== END | disposition home or self-care (01) ==
LOC: MTLAB 11:28
PROVIDERS: PCP Family Medicine; Referring Provider Internal Medicine Medical Oncology; Visit Provider Internal Medicine Medical Oncology
DX: M05.70 Rheumatoid arthritis with rheumatoid factor of unspecified site without organ or systems involvement (principal); Z79.899 Other long term (current) drug therapy; Z85.3 Personal history of malignant neoplasm of breast
CPT/HCPCS: 36415; 80053; 83615; 85025; 86300

== ENCOUNTER 2024-11-30 10:36 | Inpatient (IN) | payer MEDICARE, SELFPAY ==
[2020-06-07 08:50] VITALS: BMI 19.4
[2024-11-30] VITALS (15 sets, daily range): BP systolic 94–125; BP diastolic 46–69; PULSE 60–109; RESP 16–25; TEMP 36.3–37; O2SAT 94–100; BMI 18.8; BMI 18.6
--- NOTE | 2024-11-30 10:56 | EKG12_ITS ---
Test Reason : FALL Blood Pressure : */* mmHG Vent. Rate : 60 BPM Atrial Rate : 60 BPM P-R Int : 196 ms QRS Dur : 160 ms QT Int : 478 ms P-R-T Axes : 61 243 15 degrees QTcB Int : 478 ms AV dual-paced rhythm Abnormal ECG Confirmed by YOANA LOPES, CHINTAN ([id number]), news editor CHERELLE BUENROSTRO ([id number]) on 12/04/2024 8:18:51 AM Referred By: Confirmed By: CHINTAN LEES MD
--- NOTE | 2024-11-30 10:56 | RAD_ITS ---
PROCEDURE: CHEST 1 VIEW (PORTABLE) 11/30/2024 REASON FOR EXAM: CORONARY ARTERY DISEASE TECHNIQUE: Frontal view of the chest. COMPARISON: Prior study dated July 21, 2024. FINDINGS: Hardware: EKG electrodes are seen. Left-sided dual-chamber pacemaker is present. A left-sided port a catheter is seen with the tip in the superior vena cava. Heart: Heart size is mildly enlarged. Lungs: Blunting of the right costophrenic angle mild degree of bibasilar atelectasis more prominent at the right lung base. Calcified right pleural plaques. Bones: Degenerative changes are identified within the thoracic spine. Other: RAD/Chest 1 View (Portable) IMPRESSION: Hyperinflation. Blunting of the right costophrenic angle with small right pleural effusion and bibasilar atelectasis. Reading Location: [id number]
--- NOTE | 2024-11-30 10:57 | EDS_ITS ---
HPI History of Present Illness Chief Complaint: Fall Narrative Narrative: 89-year-old female past medical history of coronary artery disease and pacemaker presents with dizziness and lightheadedness which caused her to fall this morning. She states that she got up at around 530 this morning, approximately 5 hours ago, and was attempting to ambulate to the bathroom. She states that she usually gets up and is somewhat groggy and has to hold onto the paredes. When she stands, she states she feels whooshing in her head, and feels very dizzy and lightheaded. She fell today because of the dizziness and struck her right forehead. She does take Eliquis for coronary artery disease and pacemaker. She denies loss of consciousness afterwards. Currently, she states that she has numbness of both feet and hands, but is not complete numbness. She was unable to stand up fully. She states that after she had fallen she crawled to her sofa, and climbed up onto the couch. She laid there for a bit, but was unable to call her daughter because her phone was in the bedroom. She crawled to the bedroom, called her daughter, and later down and fell asleep for few hours but she still feels lightheadedness and dizziness, especially when she moves her head or sits up. [facility] Medical History Shingles Atrial tachycardia Presence of permanent cardiac pacemaker CKD (chronic kidney disease) stage 3, GFR 30-59 ml/min Non-rheumatic mitral regurgitation Mitral valve insufficiency Rheumatoid arthritis STEMI (ST elevation myocardial infarction) Atherosclerosis of coronary artery of [place] heart without angina pectoris History of coronary artery stent placement (04/12/20) Osteomyelitis of left lower extremity 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 Colonization status Contamination 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 Venous insufficiency (chronic) (peripheral) Delayed wound healing Other specified peripheral vascular diseases Non-pressure chronic ulcer of unspecified part of left lower leg with fat layer exposed Staph infection Left ankle swelling History of malignant neoplasm of right breast Fx cervical vert NOS-closed Fx clavicle Arthritis Malignant neoplasm of right female breast Osteopenia Home Medications ?Medication ?Instructions ?Recorded ?Last Taken ?Type acetaminophen 500 mg tablet 1,000 mg PO BID pain 04/1205/16/20 History levothyroxine 75 mcg tablet 100 mcg PO DAILY thyroid 1 06/07/22 05/07/23 History calcium carbonate 1,000 mg PO DAILY@0800 PRN 1 06/08/22 Unknown History indigestion dapagliflozin propanediol 10 mg 10 mg PO QAM #90 tabs 02/01/24 Unknown Rx tablet (Farxiga) metoprolol tartrate 50 mg tablet 50 mg PO BID #180 tab s 05/01/24 Unknown Rx amiodarone 200 mg tablet 200 mg PO DAILY #90 tabs Unknown Rx spironolactone 25 mg tablet 25 mg PO QAM #90 tabs 06/03 12/25 Unknown Rx furosemide 40 mg tablet 40 mg PO QDAY #30 tabs 07/26 Unknown Rx apixaban 2.5 mg tablet 2.5 mg PO BID #180 tabs 08/31 07/25 Unknown Rx mirtazapine 30 mg tablet 45 mg PO DAILY 09/12/24 Unkn own History sacubitril 24 mg-valsartan 26 mg 1 tab PO BID #180 tab s 09/12/24 Unknown Rx tablet (Entresto) Allergy/AdvReac Type Severity Reaction Status Date / Time ticagrelor (From Brilinta) AdvReac Severe Severe Verified 11/30/24 10:43 dyspnea on exertion Family History Father Clotting disorder Heart disease Surgical History History of cardioversion (01/27/23) History of ankle surgery History of left heart catheterization (LHC) (~01/02/21) Presence of coronary angioplasty implant and graft (~04/12/20) History of arthroplasty of left ankle History of tubal ligation History of mastectomy Social History Smoking Status: Never smoker alcohol intake: never substance use type: does not use caffeine: Yes ROS ROS ED ROS Narrative Review of systems positive for lightheadedness and dizziness causing fall. Positive trauma to right forehead/ecchymosis and swelling. Dizziness and lightheadedness worse when sits up or moves head [id number]. Positive numbness of bilateral hands and feet. No neck pain. Able to move all extremities but not stand straight up. EXAM Physical Exam Narrative Exam Narrative: GCS 15. ABCs intact. Cardiovascular examination reveals regular rate and rhythm. Lungs are clear to auscultation bilaterally. Abdomen is soft and nontender with positive bowel sounds. No guarding or rebound. Neurological exa mination is nonfocal and nonlateralizing. Able to move all extremities. HEENT examination shows mild ecchymosis on right forehead with minimal swelling, no crepitance. No vertebral point tenderness or bony step-off. Full range of motion of neck. Const Vital Signs: 11/30/24 10:38 11/30/24 10:44 11/30/24 11:15 Temperature 97.3 F L Temperature Source Axillary Pulse Rate 61 60 Respiratory Rate 16 17 Respiratory Effort Normal Respiratory Depth Normal Respiratory Pattern Normal Blood Pressure 121/51 H 107/46 L Blood Pressure Mean 74 66 Pulse Ox 94 100 Oxygen Delivery Method Room Air Room Air Room Air 11/30/24 11:30 11/30/24 12:00 11/30/24 12:30 Temperature Temperature Source Pulse Rate 60 60 60 Respiratory Rate 18 16 18 Respiratory Effort Respiratory Depth Respiratory Pattern Blood Pressure 111/53 L 107/54 L 106/48 L Blood Pressure Mean 72 71 67 Pulse Ox 100 100 100 Oxygen Delivery Method Room Air Room Air Room Air 11/30/24 13:00 11/30/24 13:30 11/30/24 14:00 Temperature Temperature Source Pulse Rate 60 60 60 Respiratory Rate 25 H 18 16 Respiratory Effort Respiratory Depth Respiratory Pattern Blood Pressure 113/47 L 106/58 L 104/53 L Blood Pressure Mean 69 74 70 Pulse Ox 97 100 100 Oxygen Delivery Method Room Air Room Air 11/30/24 14:30 Temperature Temperature Source Pulse Rate 60 Respiratory Rate 18 Respiratory Effort Respiratory Depth Respiratory Pattern Blood Pressure 125/69 H Blood Pressure Mean 87 Pulse Ox 100 Oxygen Delivery Method Room Air MDM MDM MDM Narrative Medical decision making narrative: The differential diagnosis includes but not limited to intracranial hemorrhage versus closed head injury on anticoagulant versus forehead hematoma versus skull fracture versus positional vertigo versus dehydration versus orthostatic hypotension. I have low suspicion for ACS. Given her fall on anticoagulant, CT of the brain and of the cervical spine will be obtained to rule out fracture or intracranial hemorrhage. Chest x-ray will be obtained as well as CBC, CMP. EKG obtained interpreted by myself independently as a paced rhythm at [address] changes. No STEMI. Her CMP hemolyzed multiple times. However, on this review BUN of 26 and creatinine 1.15, normal sodium, normal potassium and normal chloride. LFTs are grossly unremarkable. CBC shows slight neutropenia at 4.0. When compared to prior labs she has had neutropenia in the past. Hemoglobin 15.6, hematocrit 45.8. Platelet count low at 124. I do not feel she requires platelet transfusion. I reviewed the radiology report of the CT of the brain and there is no evidence of skull fracture or acute intracranial hemorrhage. Additionally on review of the CT report of the cervical spine, there are degenerative changes but once again no evidence of an acute fracture. Chest x-ray interpreted by myself independently shows bibasilar atelectasis but no consolidation or pneumothorax. There is small right pleural effusion. I reviewed the radiology report which confirms my independent interpretation. With the thought that she may have positional vertigo, she was given meclizine. However, on repeat examination she was unable to ambulate. I then discussed the patient with Dr. Thornton. She will be assigned observation on the general medical floor. Disposition is assigned observation in stable condition. History & Record Review Discussion w/independent historian: Patient Additional record(s) reviewed:: Prior labs Lab Data Attestation: I reviewed the patient's lab results. Labs: Laboratory Results - last 24 hr 11/30/24 11/30/24 11/30/24 10:49 12:27 13:28 WBC 4.0 L RBC 4.75 Hgb 15.6 H Hct 45.8 MCV 96.4 MCH 32.8 H MCHC 34.1 RDW Std Deviation 51.2 H RDW Coeff of Sharad 14.5 Plt Count 124 L MPV 12.0 Immature Gran % (Auto) 0.300 Neut % (Auto) 52.8 Lymph % (Auto) 27.5 [place] % (Auto) 17.9 H Eos % (Auto) 1.0 Baso % (Auto) 0.5 Absolute Neuts (auto) 2.1 Absolute Lymphs (auto) 1.09 Nucleated RBC % 0 Sodium Cancelled Cancelled 139 Potassium Cancelled Cancelled 4.1 Chloride Cancelled Cancelled 104 Carbon Dioxide Cancelled Cancelled 22.4 Anion Gap Cancelled Cancelled 13 BUN Cancelled Cancelled 26 H Creatinine Cancelled Cancelled 1.15 Estim Creat Clear Calc Cancelled Cancelled 27.44 L Est GFR (MDRD) Non-Af Cancelled Cancelled 46 L BUN/Creatinine Ratio Cancelled Cancelled 22.7 H Glucose Cancelled Cancelled 105 H Calcium Cancelled Cancelled 8.7 Total Bilirubin Cancelled Cancelled 0.65 AST Cancelled Cancelled 23 ALT Cancelled Cancelled 22 Alkaline Phosphatase Cancelled Cancelled 45 Total Protein Cancelled Cancelled 5.7 L Albumin Cancelled Cancelled 3.5 Globulin Cancelled Cancelled 2.2 Albumin/Globulin Ratio Cancelled Cancelled 1.5 Radiography Chest X-Ray - ED: 1 View, Read by ED Physician, Read by Radiologist, No Acute Disease, Right Effusion and - (Bibasilar atelectasis) Diagnostic Testing: Clinical Impression(s) from Imaging Studies Chest X-Ray 11/30/24 10:56 IMPRESSION: Hyperinflation. Blunting of the right costophrenic angle with small right pleural effusion and bibasilar atelectasis. Reading Location: [facility] Brain CT 11/30/24 11:07 IMPRESSION: CHRONIC CHANGES. NO ACUTE FINDINGS. Reading Location: [facility] Cervical Spine CT 11/30/24 11:07 IMPRESSION: Multilevel degenerative changes with facet joint osteoarthritis and hypertrophy as described. Stable anterior subluxation/listhesis of C4 on C5 and C5 on C6. Stable soft tissue density in the anterior aspect of the right lung apex. Reading Location: [id number] Management Discussion w/another healthcare provider: Hospitalist (Dr. Thornton) Discharge Plan Dx/Rx/DC Orders Clinical Impression: Dizziness, Fall, Traumatic hematoma of forehead, Closed head injury, Anticoagulant long-term use, Paresthesias Disposition Disposition: Acute Care [facility]
[2024-11-30] MEDS: 0.9% Normal Saline (1000mL) 1,000 ML 1000 ML IV (11:04)
--- NOTE | 2024-11-30 11:07 | CT_ITS ---
PROCEDURE: SPINE CERVICAL WITHOUT CONTRAS 11/30/2024 REASON FOR EXAM: TRAUMA TECHNIQUE: SPINE CERVICAL WITHOUT CONTRAS Coronal and Sagittal reconstruction series were provided. One or more dose reduction techniques were used (e.g., Automated exposure control, adjustment of the mA and/or kV according to patient size, use of iterative reconstruction technique. RADIATION DOSE SUMMARY: CTDlvol: 12.11 mGy DLP: 244.16 mGycm COMPARISON: Prior study dated July 23, 2024. FINDINGS: Alignment: Stable anterior listhesis of C4 on C5 and C5 on C6 most likely secondary to facet joint osteoarthritis. Vertebrae: Vertebral heights are well-maintained. Soft Tissues: No prevertebral soft tissue swelling. Other: Stable 2.6 cm x 2.2 cm mass in the anterior right lung apex. This may represent chronic scarring. This is unchanged. C1-2: Degenerative changes of the atlantoaxial joint. C2-3: Facet joint osteoarthritis and hypertrophy worse on the left side. No significant central canal stenosis. C3-4: Marked degree of hypertrophy of the facet joints. Uncovertebral arthrosis and bilateral neural foraminal stenosis. C4-5: Stable anterior listhesis of C4 on C5 most likely secondary to the facet joint osteoarthritis and hypertrophy. C5-6: Stable anterior listhesis of C5 on C6 due to facet joint osteoarthritis and hypertrophy. C6-7: Marked degree of disc space narrowing and spondylosis. Facet joint osteoarthritis C7-T1: Unremarkable CT/Spine Cervical without Contras IMPRESSION: Multilevel degenerative changes with facet joint osteoarthritis and hypertrophy as described. Stable anterior subluxation/listhesis of C4 on C5 and C5 on C6. Stable soft tissue density in the anterior aspect of the right lung apex. Reading Location: [id number]
--- NOTE | 2024-11-30 11:07 | CT_ITS ---
PROCEDURE: BRAIN/HEAD WITHOUT CONTRAST 11/30/2024 REASON FOR EXAM: TRAUMA, HEAD INJURY ON ANTICOAGULANTS TECHNIQUE: BRAIN/HEAD WITHOUT CONTRAST Coronal and Sagittal reconstruction series were provided. One or more dose reduction techniques were used (e.g., Automated exposure control, adjustment of the mA and/or kV according to patient size, use of iterative reconstruction technique. RADIATION DOSE SUMMARY: CTDlvol: 44.99 mGy DLP: 812.98 mGycm COMPARISON: Prior study dated July 23, 2024. FINDINGS: Brain: Low density in the periventricular white matter suggests mild chronic small vessel ischemic changes. CSF Spaces: Moderate generalized cerebral atrophy Sinuses/Mastoids: Clear at visualized levels Bones: No fracture seen. CT/Brain/Head without Contrast IMPRESSION: CHRONIC CHANGES. NO ACUTE FINDINGS. Reading Location: [id number]
[2024-11-30 11:12] LABS: Hematocrit 45.8 % (37-47); Hemoglobin 15.6 g/dL (12.0-15.0); Immature Granulocytes Count 0.010 X10^3/uL (0.0-0.0); Mean Corp Hgb Conc 34.1 g/dL (32-36); Mean Corpuscular Volume 96.4 fL (81-99); Mean Platelet Vol. 12.0 fl (6.2-12.0); NRBC Flagged by Analyzer 0 % (0-5); Platelet Count 124 K/mm3 (150-450); RBC Distribution Width CV 14.5 % (11.6-14.6); RBC Distribution Width SD 51.2 fl (35.1-43.9); Red Blood Count 4.75 M/mm3 (4.2-5.4); White Blood Count 4.0 K/mm3 (4.4-11.0)
[2024-11-30 13:54] LABS: AST(SGOT) 23 U/L (<=31); Alanine Aminotransfer ALT/SGPT 22 U/L (<=34); Albumin, Serum 3.5 g/dL (3.4-4.8); Alkaline Phosphatase 45 U/L (35-104); Anion Gap 13 (5-15); BUN 26 mg/dL (4-19); BUN/Creat Ratio 22.7 RATIO (10-20); Calcium,Total 8.7 mg/dL (7.6-11.0); Carbon Dioxide 22.4 mmol/L (21.0-32.0); Chloride 104 mmol/L (98-108); Estimated Creatinine Clearance 27.44 ml/min (50-250); Globulin 2.2 g/dL (2.2-4.2); Glucose 105 mg/dL (70-99); Potassium 4.1 mmol/L (3.3-5.1)
--- NOTE | 2024-11-30 14:13 | PCM.HP.STD ---
[facility] - General General Date of Admission: 11/30/24 Date of Service: 11/30/24 Chief Complaint: Dizziness/lightheadedness with gait unsteadiness and fall at home HPI Narrative ROBERTO RASMUSSEN, is a 89 F who presented to [facility] ED on 11/30/2024 with dizziness/lightheadedness with gait unsteadiness and fall at home. Patient lives at home alone, has fairly good functional status at baseline. Daughter lives nearby. 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 Patient notes that she got up around 5 AM this morning to use the bathroom and felt lightheaded and dizzy leading to a fall onto her elbow. She did reportedly hit her head as well. She was able to crawl over to the sofa and went back to bed for a period of time, but when she got up around 9 AM she continued to have lightheadedness with dizziness when trying to stand and ambulate, so she called her daughter and came in for further evaluation. In the ED she was mildly hypertensive to the 100s over 40s, in paced rhythm at 60 bpm and stable on room air at rest. CBC and BMP were benign. CT brain and cervical spine were unremarkable. Chest x-ray showed blunting of the right costophrenic angle with small right pleural effusion and bibasilar atelectasis, similar to previous. They attempted to ambulate the patient in the ED but she continued to have significant lightheadedness and dizziness despite being given a dose of meclizine, so hospitalist was contacted for admission. I saw the patient at bedside in the ED, daughter was present. Patient was sitting back comfortably in bed, conversing normally, in no acute distress. She reported no presyncopal symptoms while sitting. Notes that she does have presyncopal symptoms often when going from sitting to standing, but her symptoms today have been much worse than her normal and have appeared to be accompanied by vertigo. She has no history of vertigo. She also reports numbness/tingling of both of her hands and feet which is new for her. Notes that she was in her normal state of health yesterday. No other acute concerns currently. Will be admitted for further management. [facility] Medical History (Updated 11/30/24 @ 16:13 by Rody Faustin) Anxiety Depression Hypothyroidism Non-smoker Atrial fibrillation Congestive heart failure (CHF) Pacemaker Myocardial infarct Shingles Atrial tachycardia Presence of permanent cardiac pacemaker CKD (chronic kidney disease) stage 3, GFR 30-59 ml/min Non-rheumatic mitral regurgitation Mitral valve insufficiency Rheumatoid arthritis STEMI (ST elevation myocardial infarction) Atherosclerosis of coronary artery of [place] heart without angina pectoris History of coronary artery stent placement (04/12/20) Osteomyelitis of left lower extremity 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 Colonization status Contamination 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 Venous insufficiency (chronic) (peripheral) Delayed wound healing Other specified peripheral vascular diseases Non-pressure chronic ulcer of unspecified part of left lower leg with fat layer exposed Staph infection Left ankle swelling History of malignant neoplasm of right breast Fx cervical vert NOS-closed Fx clavicle Arthritis Malignant neoplasm of right female breast Osteopenia Home Medications ?Medication ?Instructions ?Recorded ?Last Taken ?Type acetaminophen 500 mg tablet 1,000 mg PO BID pain 04/12/20 05/16/20 History levothyroxine 75 mcg tablet 100 mcg PO DAILY thyroid 04/06/23 05/07/23 History calcium carbonate 1,000 mg PO DAILY@0800 PRN 04/07/23 11/29/24 History indigestion dapagliflozin propanediol 10 mg 10 mg PO QAM #90 tabs 02/01/24 11/29/24 Rx tablet (Farxiga) metoprolol tartrate 50 mg tablet 50 mg PO BID #180 tabs 05/01/24 Unknown Rx amiodarone 200 mg tablet 200 mg PO DAILY #90 tabs 06/20/24 11/29/24 Rx spironolactone 25 mg tablet 25 mg PO QAM #90 tabs 06/20/24 11/29/24 Rx furosemide 40 mg tablet 40 mg PO QDAY #30 tabs 07/26/24 11/29/24 Rx apixaban 2.5 mg tablet 2.5 mg PO BID #180 tabs 09/12/24 11/29/24 Rx mirtazapine 30 mg tablet 45 mg PO DAILY 09/12/24 11/29/24 History sacubitril 24 mg-valsartan 26 mg 1 tab PO BID #180 tabs 09/12/24 11/29/24 Rx tablet (Entresto) Allergy/AdvReac Type Severity Reaction Status Date / Time ticagrelor (From Brilinta) AdvReac Severe Severe Verified 11/30/24 10:43 dyspnea on exertion Family History Father Clotting disorder Heart disease Surgical History History of cardioversion (01/27/23) History of ankle surgery History of left heart catheterization (LHC) (~01/02/21) Presence of coronary angioplasty implant and graft (~04/12/20) History of arthroplasty of left ankle History of tubal ligation History of mastectomy Social History Smoking Status: Never smoker alcohol intake: never substance use type: does not use caffeine: Yes ROS Constitutional Constitutional: Denies chills, fatigue, fever(s) or weakness Eyes Eyes: Denies change in vision Cardiovascular Cardiovascular: Denies chest pain Respiratory/Chest Respiratory/Chest: Denies cough, shortness of breath at rest or shortness of breath with exertion Gastrointestinal Gastrointestinal: Denies abdominal pain Musculoskeletal Musculoskeletal: Denies arthralgias or myalgias Neurologic Neurologic: Reports disequilibrium, dizziness and numbness; Denies abnormal speech, confusion, focal weakness, headache(s) or tingling Vital Signs Vital Signs Vital Signs: 11/30/24 10:38 11/30/24 10:44 11/30/24 11:15 Temperature 97.3 F L Temperature Source Axillary Pulse Rate 61 60 Respiratory Rate 16 17 Respiratory Effort Normal Respiratory Depth Normal Respiratory Pattern Normal Blood Pressure 121/51 H 107/46 L Blood Pressure Mean 74 66 Pulse Ox 94 100 Oxygen Delivery Method Room Air Room Air Room Air 11/30/24 11:30 11/30/24 12:00 11/30/24 12:30 Temperature Temperature Source Pulse Rate 60 60 60 Respiratory Rate 18 16 18 Respiratory Effort Respiratory Depth Respiratory Pattern Blood Pressure 111/53 L 107/54 L 106/48 L Blood Pressure Mean 72 71 67 Pulse Ox 100 100 100 Oxygen Delivery Method Room Air Room Air Room Air 11/30/24 13:00 11/30/24 13:30 Temperature Temperature Source Pulse Rate 60 60 Respiratory Rate 25 H 18 Respiratory Effort Respiratory Depth Respiratory Pattern Blood Pressure 113/47 L 106/58 L Blood Pressure Mean 69 74 Pulse Ox 97 100 Oxygen Delivery Method Room Air Room Air Weight Weight: 51.4 kg Body Mass Index (BMI) 18.8 Physical Exam Const alert, oriented x3 and no apparent distress Constitutional Narrative: Elderly female, appears younger than stated age, thin appearing, mildly fatigued appearing but otherwise sitting back comfortably in bed, conversing normally, in no acute distress. General Appearance: cooperative and comfortable HEENT normocephalic, head/scalp atraumatic, hearing grossly normal bilaterally, nasal mucous membranes and turbinates normal and moist oral mucous membranes Eyes PERRL, EOMs intact bilaterally and conjunctivae normal Neck full ROM Chest inspection of chest normal Resp normal respiratory effort, normal air movement, no use of accessory muscles and clear to auscultation bilaterally Resp Narrative: Breathing comfortably on room air at rest. Mildly diminished breath sounds in bilateral lung bases, no wheezing or crackles noted. Cardio regular rate, regular rhythm, no murmurs and peripheral pulses 2+ throughout GI normal to inspection, nondistended, normoactive bowel sounds, soft to palpation, non-tender and non-distended Back/Spine normal ROM Extremity normal to inspection, full ROM and no pedal edema Skin no rashes or lesions noted Neuro moves all extremities and no focal motor deficits Coordination / Balance: [id number] test normal Speech: speech normal Motor Exam: strength 5/5 throughout Psych mental status grossly normal Results Lab / Micro Data 11/30/24 10:49 11/30/24 13:28 Labs: Laboratory Results - last 24 hr 11/30/24 10:49: WBC 4.0 L, RBC 4.75, Hgb 15.6 H, Hct 45.8, MCV 96.4, MCH 32.8 H, MCHC 34.1, RDW Std Deviation 51.2 H, RDW Coeff of Sharad 14.5, Plt Count 124 L, MPV 12.0, Immature Gran % (Auto) 0.300, Neut % (Auto) 52.8, Lymph % (Auto) 27.5, [place] % (Auto) 17.9 H, Eos % (Auto) 1.0, Baso % (Auto) 0.5, Absolute Neuts (auto) 2.1, Absolute Lymphs (auto) 1.09, Nucleated RBC % 0, Sodium Cancelled, Potassium Cancelled, Chloride Cancelled, Carbon Dioxide Cancelled, Anion Gap Cancelled, BUN Cancelled, Creatinine Cancelled, Estim Creat Clear Calc Cancelled, Est GFR (MDRD) Non-Af Cancelled, BUN/Creatinine Ratio Cancelled, Glucose Cancelled, Calcium Cancelled, Total Bilirubin Cancelled, AST Cancelled, ALT Cancelled, Alkaline Phosphatase Cancelled, Total Protein Cancelled, Albumin Cancelled, Globulin Cancelled, Albumin/Globulin Ratio Cancelled 11/30/24 12:27: Sodium Cancelled, Potassium Cancelled, Chloride Cancelled, Carbon Dioxide Cancelled, Anion Gap Cancelled, BUN Cancelled, Creatinine Cancelled, Estim Creat Clear Calc Cancelled, Est GFR (MDRD) Non-Af Cancelled, BUN/Creatinine Ratio Cancelled, Glucose Cancelled, Calcium Cancelled, Total Bilirubin Cancelled, AST Cancelled, ALT Cancelled, Alkaline Phosphatase Cancelled, Total Protein Cancelled, Albumin Cancelled, Globulin Cancelled, Albumin/Globulin Ratio Cancelled 11/30/24 13:28: Sodium 139, Potassium 4.1, Chloride 104, Carbon Dioxide 22.4, Anion Gap 13, BUN 26 H, Creatinine 1.15, Estim Creat Clear Calc 27.44 L, Est GFR (MDRD) Non-Af 46 L, BUN/Creatinine Ratio 22.7 H, Glucose 105 H, Calcium 8.7, Total Bilirubin 0.65, AST 23, ALT 22, Alkaline Phosphatase 45, Total Protein 5.7 L, Albumin 3.5, Globulin 2.2, Albumin/Globulin Ratio 1.5 Imaging Radiology Impression Chest X-Ray 11/30/24 10:56 IMPRESSION: Hyperinflation. Blunting of the right costophrenic angle with small right pleural effusion and bibasilar atelectasis. Reading Location: [facility] Brain CT 11/30/24 11:07 IMPRESSION: CHRONIC CHANGES. NO ACUTE FINDINGS. Reading Location: [id number] Cervical Spine CT 11/30/24 11:07 IMPRESSION: Multilevel degenerative changes with facet joint osteoarthritis and hypertrophy as described. Stable anterior subluxation/listhesis of C4 on C5 and C5 on C6. Stable soft tissue density in the anterior aspect of the right lung apex. Reading Location: [id number] Assessment & Plan Assessment/Plan (1) Dizziness: (2) Fall: PLAN: Plan Patient is an 89-year-old female who presented to [facility] ED on 11/30/2024 with dizziness/lightheadedness with gait unsteadiness and fall at home. 1. Dizziness/lightheadedness with gait unsteadiness and minor fall at home ? Admit under observation status to [facility]. PT/OT/case management consulted. Unclear etiology but symptoms do seem most consistent with presyncopal symptoms. Very low concern for stroke given numbness/tingling is reportedly present in bilateral hands and feet and no motor symptoms are noted. Home medications and dehydration would be likely contributors to presyncopal symptoms. Unable to obtain orthostatic vitals in ED as patient could not stand without significant symptoms. Given 1 L of IV fluids in the ED; will give another 1 L of fluids over several hours this evening. Hold home Lasix, Jardiance, Lopressor, Entresto and spironolactone for now. Appreciate therapy recommendations. 2. Chronic HFrEF, paroxysmal A-fib on Eliquis, history of complete heart block s/p pacemaker placement, hypertension, hyperlipidemia ? Follows with cardiology, last office visit in August. History of STEMI with stenting to RCA x 1 in 2019. Had multiple ED visits for presyncopal symptoms and 2022 and was found to have A-fib. Had DEBRA cardioversion done in January 2023. Continued to have presyncopal symptoms and was then found to have complete heart block s/p pacemaker placement in January 2023. Last echo in 11/2023 showed EF 35%, moderate global hypokinesis of the LV, mildly dilated RV, no significant valvular disease. Concern for home medications contributing to presentation as above. Given IV fluids and holding home meds as above. Continue home Eliquis and amiodarone. 3. History of breast cancer s/p mastectomy and chemotherapy ? Follows with oncology, last office visit in October. Currently under observation. No inpatient needs, continue outpatient follow-up. 4. Hypothyroidism ? TSH ordered. Continue home Synthroid. DVT prophylaxis: Not indicated, on Eliquis CODE STATUS: Full code, verified Expected disposition: Home, 1 to 2 days Total clinical time spent by myself addressing the patient's medical issues, reviewing all the data, and collaborating with patient's care team: 75 minutes. Charges/Coding Visit Charges Inpatient E&M: 94447 Init Hosp L3
[2024-11-30] MEDS: 0.9% Saline Lock 10 ML Syringe IV (16:58)
[2024-11-30] MEDS: Lactated Ringers 1,000 ML 100 ML IV (16:58)
[2024-11-30] MEDS: APIXABAN 2.5 MG TABLET (WCH) PO (21:22)
[2024-12-01 03:45] VITALS: BP 107/52; PULSE 60; RESP 16; TEMP 36.4; O2SAT 97
[2024-12-01 05:38] LABS: Hematocrit 38.8 % (37-47); Hemoglobin 13.4 g/dL (12.0-15.0); Mean Corp Hgb Conc 34.5 g/dL (32-36); Mean Corpuscular Volume 96.5 fL (81-99); Mean Platelet Vol. 11.1 fl (6.2-12.0); Platelet Count 101 K/mm3 (150-450); RBC Distribution Width CV 14.3 % (11.6-14.6); RBC Distribution Width SD 51.0 fl (35.1-43.9); Red Blood Count 4.02 M/mm3 (4.2-5.4); White Blood Count 2.6 K/mm3 (4.4-11.0)
[2024-12-01 06:26] LABS: Anion Gap 9 (5-15); BUN 24 mg/dL (4-19); BUN/Creat Ratio 20.4 RATIO (10-20); Calcium,Total 8.1 mg/dL (7.6-11.0); Carbon Dioxide 23.5 mmol/L (21.0-32.0); Chloride 106 mmol/L (98-108); Estimated Creatinine Clearance 26.84 ml/min (50-250); Glucose 88 mg/dL (70-99); Potassium 3.8 mmol/L (3.3-5.1)
[2024-12-01 10:09] VITALS: BP 97/60; PULSE 60; RESP 14; TEMP 36.7; O2SAT 98
[2024-12-01 10:39] LABS: Mucous, Urine 0 SEEN /hpf (<or=2+); Red Blood Cells-Urine 0 SEEN /hpf (0-5)
[2024-12-01] MEDS: APIXABAN 2.5 MG TABLET (WCH) PO ×2 (10:40→20:28)
[2024-12-01 10:55] VITALS: PULSE 60
[2024-12-01 11:05] LABS: Color, Urine Yellow (Yellow); Glucose, Dipstick 1000 mg/dl (Normal); Ketone-Dipstick Negative (Negative); Leukocyte Esterase-Dipstick 25 /ul (Negative); Nitrite-Dipstick Negative (Negative); Occult Blood-Urine Negative /ul (Negative); Protein-Dipstick 15 mg/dl (Negative); Specific Gravity, Urine 1.010 (1.002-1.030); Urine Bilirubin Dipstick Negative (Negative)
[2024-12-01 11:23] LABS: Squamous Epithelial Cells - UA 0-5 SEEN /hpf (5-10)
--- NOTE | 2024-12-01 14:20 | CASEMGMT ---
JUDE CORTEZ NOTE: Intro role of CM to patient and NIXON form explained re: Observation status for treatment of weakness, dizziness, and falls.? Explained hospitalization will be paid per her insurance policy for Outpatient billing?and condition will continue to be evaluated for Inpt necessity. Also let pt know that [facility] sends paper in the billing packet with their phone number if questions arise. Pt verbalizes understanding and does not have further questions. ?Form signed, copy made and placed in chart, and original given to pt. Sherry HOBSON RN CM
--- NOTE | 2024-12-01 14:59 | PCM.PN.HOSP ---
Reason for Visit Chief Complaint: Dizziness/lightheadedness with gait unsteadiness and fall at home Subjective Subjective Patient evaluated at bedside, has not been up moving around much yet, did get up to go to the bathroom he reports she feels better than she did but still does not feel quite right, also notes some numbness and tingling in her fingertips and toes but this is bilateral and upper and lower extremities. Reports she eats very poorly at home and often has to remind herself to eat. Denies any chest pain or shortness of breath Objective Data Objective Data Vital Signs: Vital Signs Temp Pulse Resp BP Pulse Ox O2 Del Method 98.0 F 60 14 97/60 98 Room Air 12/01/24 10:12/01/24 10:55 12/01/24 10:12/01/24 10:12/01/24 10:12/01/24 10:55 Oxygen Delivery Method Room Air Weight: 50.712 kg Body Mass Index (BMI) 18.6 Intake & Output: Intake and Output for Last 24 Hours 11/29/24 11/30/24 12/01/24 23:59 23:59 23:59 Intake Total 1500 / 1500 1351.67 / 1351.67 Output Total 300 / 300 Balance 1500 / 1500 1051.67 / 1051.67 Lab / Micro Data 12/01/24 05:18 12/01/24 05:18 Labs: Laboratory Results - last 24 hr 11/30/24 13:28: TSH 2.500 12/01/24 05:18: WBC 2.6 L, RBC 4.02 L, Hgb 13.4, Hct 38.8, MCV 96.5, MCH 33.3 H, MCHC 34.5, RDW Std Deviation 51.0 H, RDW Coeff of Sharad 14.3, Plt Count 101 L, MPV 11.1, Sodium 138, Potassium 3.8, Chloride 106, Carbon Dioxide 23.5, Anion Gap 9, BUN 24 H, Creatinine 1.16, Estim Creat Clear Calc 26.84 L, Est GFR (MDRD) Non-Af 45 L, BUN/Creatinine Ratio 20.4 H, Glucose 88, Calcium 8.1 12/01/24 10:25: Urine Color Yellow, Urine Clarity Sl. Cloudy, Urine pH 7.0, Ur Specific [place] 1.010, Urine Protein 15 H, Urine Glucose (UA) 1000 H, Urine Ketones Negative, Urine Occult Blood Negative, Urine Nitrite Negative, Urine Bilirubin Negative, Urine Urobilinogen Normal, Ur Leukocyte Esterase 25 H, Urine RBC 0 SEEN, Urine WBC 0-5 SEEN, Ur Squamous Epith Cells 0-5 SEEN, Urine Bacteria 0 SEEN, Urine Mucus 0 SEEN Physical Exam Narrative General: Alert, oriented, no apparent distress HEENT: Atraumatic, normocephalic Eyes: Anicteric, normal conjunctiva, extraocular movements grossly intact Neck: Supple Respiratory: Clear to auscultation bilaterally, normal respiratory effort Cardiovascular: Regular rate and rhythm GI: Soft, nontender, nondistended Extremities: No edema Musculoskeletal: Moving all extremities Neuro: No overt focal neurological deficits Skin: No rashes appreciated Psych: Cooperative Assessment & Plan Assessment/Plan (1) Dizziness: (2) Fall: PLAN: Plan #Dizziness/lightheadedness with gait unsteadiness and minor fall at home ? Admit under observation status to [facility]. PT/OT/case management consulted. Unclear etiology but symptoms do seem most consistent with presyncopal symptoms. Very low concern for stroke given numbness/tingling is reportedly present in bilateral hands and feet and no motor symptoms are noted. Home medications and dehydration would be likely contributors to presyncopal symptoms. Unable to obtain orthostatic vitals in ED as patient could not stand without significant symptoms. Given 1 L of IV fluids in the ED; will give another 1 L of fluids over several hours this evening. Hold home Lasix, Jardiance, Lopressor, Entresto and spironolactone for now. Appreciate therapy recommendations. -12/01: Blood pressure remains low 100s and high 90s despite holding Lasix, Jardiance, Lopressor, Entresto and spironolactone. Suspect patient may have been fairly hypotensive at home given her blood pressure you been off of those medications, given this is a change we will check a repeat echo to see if there are any major changes that would be contributing. Could always consider midodrine and resuming some of patient's home medications at lower doses and as tolerated. Patient to work with PT/OT. Did check UA to assess for any underlying occult infection but this was not suggestive of UTI # Chronic HFrEF, paroxysmal A-fib on Eliquis, history of complete heart block s/p pacemaker placement, hypertension, hyperlipidemia/coronary artery disease status post stenting ? Follows with cardiology, last office visit in August. History of STEMI with stenting to RCA x 1 in 2019. Had multiple ED visits for presyncopal symptoms and 2022 and was found to have A-fib. Had DEBRA cardioversion done in January 2023. Continued to have presyncopal symptoms and was then found to have complete heart block s/p pacemaker placement in January 2023. Last echo in 11/2023 showed EF 35%, moderate global hypokinesis of the LV, mildly dilated RV, no significant valvular disease. Concern for home medications contributing to presentation as above. Given IV fluids and holding home meds as above. Continue home Eliquis and amiodarone. -12/01: Patient on amiodarone and Eliquis, other medications held due to low blood pressure. Obtaining echo as above, monitor fluid status, presently does not appear overloaded # Tingling in fingers and toes -12/01: Unclear etiology, this is symmetric in upper and lower extremities so do not think this is consistent with stroke, does report poor p.o. intake at home and that she will have to remind herself to eat. Will check B12, check magnesium, will start patient on thiamine and folate Chronic medical problems and/or problems not being actively addressed during today's encounter: # History of breast cancer s/p mastectomy and chemotherapy ? Follows with oncology, last office visit in October. Currently under observation. No inpatient needs, continue outpatient follow-up. # Hypothyroidism ? TSH ordered. Continue home Synthroid. #DVT ppx: Chronically on Eliquis Marga Butcher MD Time spent in the patient's overall evaluation, decision-making process, review of diagnostic data, adjustment of management, discussion with other providers, nursing and ancillary staff involved in patient's care documentation, 37 minutes Charges/Coding Visit Charges Inpatient E&M: 91326 Subs Hosp L2
--- NOTE | 2024-12-01 15:00 | ECHOD_ITS ---
Reason For Study Reason For Study: weakness/dizziness w/fall Procedure This was a 2D Doppler, Color Flow transthoracic echocardiogram. Exam performed portable in patient room. Left Ventricle Normal left ventricular size. Mildly increased left ventricular wall thickness. Global hypokinesis with severe mid to apical hypokinesis and normal basal anterior, anteriorlateral wall motion. Moderately reduced LVEF ; estimated ejection fraction of 35%. Abnormal septal motion secondary to paced rhythm, D-shaped septum in diastole suggestive of increased right ventricular volume. Indeterminate diastolic function. Right Ventricle Mild Right ventricular dilation with preserved function. Pacemaker lead noted in the RV. Atria Moderately dilated left atrium Mildly dilated right atrium. Mitral Valve Mild mitral valve thickening. 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 Mild mitral regurgitation with no evidence of stenosis. Tricuspid Valve Normal tricuspid valve. Unable to estimate RV systolic pressure due to insufficient tricuspid regurgitant envelope. Mild tricuspid valve insufficiency. Aortic Valve Mild aortic sclerosis without reduced excursion. No aortic stenosis or regurgitation noted. Pulmonic Valve The pulmonic valve is not well visualized. Great Vessels Normal sized aortic root. Plethoric inferior vena cava. Inferior vena cava collapse with sniff. Pericardium/Pleural Epicardial fat. MMode/2D Measurements & Calculations LVIDd: 5.1 cm IVSd: 0.87 cm Ao root diam: 3.6 cm LVIDs: 4.1 cm LVPWd: 0.87 cm FS: 19.4 % LAV(MOD-bp): 71.5 ml LVAd ap4: 18.3 cm2 SV(MOD-sp4): 17.0 ml LAV(MOD-bp) Indexed: 46.3 ml/m2 LVLd ap4: 6.1 cm SI(MOD-sp4): 11.0 ml/m2 LAV(MOD-sp2): 68.2 ml EDV(MOD-sp4): 47.1 ml LAV(MOD-sp4): 68.0 ml EDV(sp4-el): 46.7 ml LVAs ap4: 14.1 cm2 LVLs ap4: 5.6 cm ESV(MOD-sp4): 30.1 ml ESV(sp4-el): 29.9 ml EF(MOD-sp4): 36.1 % EF(sp4-el): 36.1 % SV(sp4-el): 16.8 ml LA A4 area: 21.4 cm2 LA dimension(2D): 4.5 cm RA A4 area: 24.9 cm2 TAPSE: 1.2 cm Doppler Measurements & Calculations MV E max salbador: 76.1 cm/sec Lat Peak E' Salbador: 14.7 cm/sec Med Peak E' Salbador: 10.3 cm/sec MV A max salbador: 46.4 cm/sec E/E' lat: 5.2 E/E' med: 7.4 MV E/A: 1.6 Ao V2 max: 130.1 cm/sec LV V1 max: 53.6 cm/sec MR max salbador: 392.6 cm/sec Ao max P.8 mmHg LV V1 max P.1 mmHg MR max P.7 mmHg Ao V2 mean: 96.0 cm/sec LV V1 mean P.64 mmHg MR mean salbador: 313.0 cm/sec Ao mean P.0 mmHg LV V1 mean: 38.1 cm/sec MR mean P.6 mmHg Ao V2 VTI: 23.0 cm LV V1 VTI: 9.3 cm MR VTI: 130.4 cm AV (velocity ratio): 0.41 PA V2 max: 104.0 cm/sec TR max salbador: 212.1 cm/sec PA V2 mean: 73.9 cm/sec PI dec slope: 154.6 cm/sec2 TR max P.0 mmHg PA V2 VTI: 17.9 cm ECHO/Echo Complete Interpretation Summary Normal left ventricular size. Mildly increased left ventricular wall thickness. Global hypokinesis with severe mid to apical hypokinesis and normal basal anterior, anteriorlateral wall motion. Mode rately reduced LVEF ; estimated ejection fraction of 35%. Abnormal septal motion secondary to paced rhythm, D-shaped sep masha in diastole suggestive of increased right ventricular volume. Indeterminate diastolic function. Moderately dilated left atrium Mildly dilated right atrium Mild Right ventricular dilation with preserved function. Pacemaker lead noted in the RV. Unable to estimate RV systolic pressure due to insufficient tricuspid regurgita nt envelope. Ordering Physician: Marga Butcher Referring Physician: Ede Mao Performed By: Jewell Sarkar, BAHMAN, RVT
--- NOTE | 2024-12-01 16:27 | CASEMGMT ---
JUDE CM into pt room, pt lying in bed with dtr at bedside. Pt agreeable to discuss dc plan with dtr present. Pt states she lives alone in a two story home. Pt does use the upstairs. She states she typically is indep and does not use a device for ambulation. Pt has 2 walkers, one on each floor, tub bench, toilet rails, w/c and other DME in basement from family members. Pt states she did better with therapy than expected. Discussed outpt therapy vs HHC. Pt PCP retired and she has not established with another physician in the practice. Pt states she would prefer to do outpt therapy but does not have transportation. Discussed [facility] and that she could have the hospital van take her as long as she can get in and out on her own. Pt states she feels she could and is agreeable to this. Pt is aware that the first appt she will need to obtain transportation to but then they can coordinate with the van. Pt states her dtr can take her to the initial appt. Discussed that the PT mentioned possible vestibular therapy pending tomorrow's therapy session. Pt states she can set up her own appt for [facility]. Green sheet on chart with note stating if PT recommends vestibular therapy during tomorrow's session to add to rx. Pt and dtr deny further needs at this time.
[2024-12-01 16:52] LABS: Magnesium 1.7 mg/dL (1.5-2.2); Vitamin B12 390 pg/mL (180-914); Vitamin D,25 Hydroxy 25.7 ng/mL (30-100)
[2024-12-01] MEDS: Magnesium Sulfate 2 GM in Dextrose 5%-Water (100mL Bag) 100 ML IV (19:49)
[2024-12-01] MEDS: Cholecalciferol (Vit D3) 125 MCG CAPSULE (5,000 UNITS) PO (19:57)
[2024-12-01 20:25] VITALS: BP 115/64; PULSE 75; RESP 16; TEMP 36.6; O2SAT 98
[2024-12-02 02:01] VITALS: BP 133/71; PULSE 60; RESP 17; TEMP 36.4; O2SAT 100
[2024-12-02 08:00] VITALS: BP 101/62; BP 118/79; BP 125/71; PULSE 109; PULSE 116; PULSE 48; RESP 18; TEMP 36.7; O2SAT 100
[2024-12-02 08:03] LABS: Anion Gap 10 (5-15); BUN 20 mg/dL (4-19); BUN/Creat Ratio 18.7 RATIO (10-20); Calcium,Total 8.0 mg/dL (7.6-11.0); Carbon Dioxide 22.1 mmol/L (21.0-32.0); Chloride 107 mmol/L (98-108); Estimated Creatinine Clearance 28.83 ml/min (50-250); Glucose 91 mg/dL (70-99); Potassium 4.3 mmol/L (3.3-5.1)
[2024-12-02] MEDS: Thiamine Hydrochloride 100 MG Tablet PO (08:10)
[2024-12-02 08:18] LABS: Hematocrit 40.1 % (37-47); Hemoglobin 13.8 g/dL (12.0-15.0); Immature Granulocytes Count 0.000 X10^3/uL (0.0-0.0); Mean Corp Hgb Conc 34.4 g/dL (32-36); Mean Corpuscular Volume 96.6 fL (81-99); Mean Platelet Vol. 11.5 fl (6.2-12.0); NRBC Flagged by Analyzer 0 % (0-5); POSITIVE COUNT YES; Platelet Count 111 K/mm3 (150-450); RBC Distribution Width CV 14.5 % (11.6-14.6); RBC Distribution Width SD 51.0 fl (35.1-43.9); Red Blood Count 4.15 M/mm3 (4.2-5.4); White Blood Count 2.6 K/mm3 (4.4-11.0)
[2024-12-02 08:19] LABS: Differential Indicated SCAN CRITERIA MET
[2024-12-02] MEDS: Cholecalciferol (Vit D3) 125 MCG CAPSULE (5,000 UNITS) PO (10:42)
[2024-12-02] MEDS: APIXABAN 2.5 MG TABLET (WCH) PO ×2 (10:44→22:17)
--- NOTE | 2024-12-02 13:15 | EKG12_ITS ---
Test Reason : DIZZY/ESTEFANIA Blood Pressure : */* mmHG Vent. Rate : 98 BPM Atrial Rate : 85 BPM P-R Int : * ms QRS Dur : 154 ms QT Int : 420 ms P-R-T Axes : * 188 -33 degrees QTcB Int : 536 ms Ventricular-paced rhythm with frequent atrial-paced complexes Abnormal ECG When compared with ECG of 30-Nov-2024 11:21, MANUAL COMPARISON REQUIRED DATA IS UNCONFIRMED Confirmed by YOANA LOPES, CHINTAN ([id number]), editor department CHERELLE BUENROSTRO ([id number]) on 12/06/2024 7:33:22 AM Referred By: Confirmed By: CHINTAN LEES MD
[2024-12-02 13:32] VITALS: BP 103/61; PULSE 45; RESP 18; TEMP 36.7; O2SAT 99
--- NOTE | 2024-12-02 14:04 | NURSING ---
rep Arnold Gaston paged for Pacer check for [facility]/ [facility] after talked with warehouse operations manager.
--- NOTE | 2024-12-02 14:23 | NURSING ---
talked with Arnold goldstein awaRe he is coming in to do pacer check
[2024-12-02 16:49] VITALS: BP 111/72; PULSE 88; RESP 18; TEMP 36.7; O2SAT 98
--- NOTE | 2024-12-02 17:21 | PCM.PN.HOSP ---
Reason for Visit Chief Complaint: Dizziness/lightheadedness with gait unsteadiness and fall at home Subjective Subjective Patient earlier in the day had been feeling better however around lunchtime had another episode of lightheadedness when she moved after doing a puzzle. She did not have any chest pain or new shortness of breath, reports the feeling was lightheaded and not dizziness Objective Data Objective Data Vital Signs: Vital Signs Temp Pulse Resp BP Pulse Ox O2 Del Method 98.0 F 88 18 111/72 98 Room Air 12/02/24 16:49 12/02/24 16:49 12/02/24 16:49 12/02/24 16:49 12/02/24 16:49 12/02/24 16:49 Oxygen Delivery Method Room Air Weight: 50.712 kg Body Mass Index (BMI) 18.6 Intake & Output: Intake and Output for Last 24 Hours 11/30/24 12/01/24 12/02/24 23:59 23:59 23:59 Intake Total 1500 / 1500 1455.67 / 1455.67 650 / 650 Output Total 300 / 300 Balance 1500 / 1500 1155.67 / 1155.67 650 / 650 Lab / Micro Data 12/02/24 06:42 12/02/24 06:42 Labs: Laboratory Results - last 24 hr 12/02/24 06:42: WBC 2.6 L, RBC 4.15 L, Hgb 13.8, Hct 40.1, MCV 96.6, MCH 33.3 H, MCHC 34.4, RDW Std Deviation 51.0 H, RDW Coeff of Sharad 14.5, Plt Count 111 L, MPV 11.5, Immature Gran % (Auto) 0.000, Neut % (Auto) 39.1 L, Lymph % (Auto) 40.7, [place] % (Auto) 17.1 H, Eos % (Auto) 2.3, Baso % (Auto) 0.8, Absolute Neuts (auto) 1.0 L, Absolute Lymphs (auto) 1.07, Nucleated RBC % 0, Sodium 139, Potassium 4.3, Chloride 107, Carbon Dioxide 22.1, Anion Gap 10, BUN 20 H, Creatinine 1.08, Estim Creat Clear Calc 28.83 L, Est GFR (MDRD) Non-Af 49 L, BUN/Creatinine Ratio 18.7, Glucose 91, Calcium 8.0 Micro: Microbiology 12/01/24 10:25 Urine, Clean Catch Urine Culture - Preliminary Presumptive E. coli Radiography Diagnostic Testing: Radiology Impression Echocardiogram 12/01/24 15:00 Interpretation Summary Normal left ventricular size. Mildly increased left ventricular wall thickness. Global hypokinesis with severe mid to apical hypokinesis and normal basal anterior, anteriorlateral wall motion. Moderately reduced LVEF ; estimated ejection fraction of 35%. Abnormal septal motion secondary to paced rhythm, D-shaped septum in diastole suggestive of increased right ventricular volume. Indeterminate diastolic function. Moderately dilated left atrium Mildly dilated right atrium Mild Right ventricular dilation with preserved function. Pacemaker lead noted in the RV. Unable to estimate RV systolic pressure due to insufficient tricuspid regurgitant envelope. Ordering Physician: Marga Butcher Referring Physician: Ede Mao Performed By: Jewell Sarkar, BAHMAN, RVT Physical Exam Narrative General: Alert, oriented, no apparent distress HEENT: Atraumatic, normocephalic Eyes: Anicteric, normal conjunctiva, extraocular movements grossly intact Neck: Supple Respiratory: Clear to auscultation bilaterally, normal respiratory effort Cardiovascular: Slightly irregular GI: Soft, nontender, nondistended Extremities: No edema Musculoskeletal: Moving all extremities Neuro: No overt focal neurological deficits Skin: No rashes appreciated Psych: Cooperative Assessment & Plan Assessment/Plan (1) Dizziness: (2) Fall: PLAN: Plan #Dizziness/lightheadedness with gait unsteadiness and minor fall at home ? Admit under observation status to [facility]. PT/OT/case management consulted. Unclear etiology but symptoms do seem most consistent with presyncopal symptoms. Very low concern for stroke given numbness/tingling is reportedly present in bilateral hands and feet and no motor symptoms are noted. Home medications and dehydration would be likely contributors to presyncopal symptoms. Unable to obtain orthostatic vitals in ED as patient could not stand without significant symptoms. Given 1 L of IV fluids in the ED; will give another 1 L of fluids over several hours this evening. Hold home Lasix, Jardiance, Lopressor, Entresto and spironolactone for now. Appreciate therapy recommendations. -12/01: Blood pressure remains low 100s and high 90s despite holding Lasix, Jardiance, Lopressor, Entresto and spironolactone. Suspect patient may have been fairly hypotensive at home given her blood pressure you been off of those medications, given this is a change we will check a repeat echo to see if there are any major changes that would be contributing. Could always consider midodrine and resuming some of patient's home medications at lower doses and as tolerated. Patient to work with PT/OT. Did check UA to assess for any underlying occult infection but this was not suggestive of UTI -12/02: Patient initially felt better and orthostats were negative however had another episode of lightheadedness, EKG showed EF that is the same but did show some wall motion abnormalities. Patient has not had any chest pain or shortness of breath, unclear significance, EKG showed a ventricularly paced rhythm with frequent atrial paced complexes. Had patient's pacemaker interrogated and it reportedly showed dyssynchrony and that some P waves were not being recognized, settings were adjusted to improve consistency and capture and that information will be given to her outpatient cardiology office who is monitoring her pacemaker. Unclear if this desynchrony may have had any bearing on these lightheaded episodes as reportedly there appeared to be some episodes and was a flutter as well, blood pressure 111/72, restarting beta-kemal at low-dose and will uptitrate as tolerated, will consult cardiology given the echo changes with lightheaded episodes suspected to be cardiac in nature, cycling troponins given the wall motion abnormalities however no current pain or active ACS suspected, unclear if she could have had an event previous or a silent [place] sometime within the last year since her last echo. Start back medications as tolerated, will place patient on MedSurg telemetry, given she is not having any active cardiac complaints do not think patient needs urgently transferred to PCU however if any additional concerns arrived can transfer floors. Currently stable. Appreciate cardiology recommendations # Chronic HFrEF, paroxysmal A-fib on Eliquis, history of complete heart block s/p pacemaker placement, hypertension, hyperlipidemia/coronary artery disease status post stenting ? Follows with cardiology, last office visit in August. History of STEMI with stenting to RCA x 1 in 2019. Had multiple ED visits for presyncopal symptoms and 2022 and was found to have A-fib. Had DEBRA cardioversion done in January 2023. Continued to have presyncopal symptoms and was then found to have complete heart block s/p pacemaker placement in January 2023. Last echo in 11/2023 showed EF 35%, moderate global hypokinesis of the LV, mildly dilated RV, no significant valvular disease. Concern for home medications contributing to presentation as above. Given IV fluids and holding home meds as above. Continue home Eliquis and amiodarone. -12/01: Patient on amiodarone and Eliquis, other medications held due to low blood pressure. Obtaining echo as above, monitor fluid status, presently does not appear overloaded -12/02: Repeat EF 35% with wall motion abnormalities that were not present previously, given this with patient's intermittent lightheaded episodes and the above cardiology consulted # Tingling in fingers and toes -12/01: Unclear etiology, this is symmetric in upper and lower extremities so do not think this is consistent with stroke, does report poor p.o. intake at home and that she will have to remind herself to eat. Will check B12, check magnesium, will start patient on thiamine and folate -12/02: This remains, unclear if there is a peripheral neuropathy, managing the above, may need further workup or monitoring on an outpatient basis if this does not improve Chronic medical problems and/or problems not being actively addressed during today's encounter: # History of breast cancer s/p mastectomy and chemotherapy ? Follows with oncology, last office visit in October. Currently under observation. No inpatient needs, continue outpatient follow-up. # Hypothyroidism ? TSH ordered. Continue home Synthroid. #DVT ppx: Chronically on Eliquis Marga Butcher MD Time spent in the patient's overall evaluation, decision-making process, review of diagnostic data, adjustment of management, discussion with other providers, nursing and ancillary staff involved in patient's care documentation, 58 minutes Charges/Coding Visit Charges Inpatient E&M: 73909 [facility] Hosp L3
[2024-12-02 17:22] LABS: Troponin T High Sensitivity 42 ng/L (<=14)
[2024-12-02 19:44] LABS: Troponin T High Sens 2 HR 41 ng/L (<=14)
[2024-12-02 20:00] VITALS: BP 108/80; PULSE 116; PULSE 117; RESP 16; TEMP 36.7; O2SAT 99
[2024-12-02 22:16] VITALS: PULSE 117
[2024-12-02] MEDS: Ensure Plus High Protein 120 ML LIQUID PO (22:17)
[2024-12-02 22:54] LABS: Troponin T High Sens 4 HR 48 ng/L (<=14)
[2024-12-03] VITALS (8 sets, daily range): BP systolic 103–113; BP diastolic 56–77; PULSE 61–118; RESP 18; TEMP 36.4–37; O2SAT 95–99
[2024-12-03 05:00] LABS: Hematocrit 39.3 % (37-47); Hemoglobin 13.5 g/dL (12.0-15.0); Immature Granulocytes Count 0.010 X10^3/uL (0.0-0.0); Mean Corp Hgb Conc 34.4 g/dL (32-36); Mean Corpuscular Volume 96.6 fL (81-99); Mean Platelet Vol. 11.4 fl (6.2-12.0); NRBC Flagged by Analyzer 0 % (0-5); POSITIVE COUNT YES; Platelet Count 98 K/mm3 (150-450); RBC Distribution Width CV 14.4 % (11.6-14.6); RBC Distribution Width SD 51.2 fl (35.1-43.9); Red Blood Count 4.07 M/mm3 (4.2-5.4); White Blood Count 3.0 K/mm3 (4.4-11.0)
[2024-12-03 05:18] LABS: Anion Gap 10 (5-15); BUN 20 mg/dL (4-19); BUN/Creat Ratio 20.1 RATIO (10-20); Calcium,Total 8.2 mg/dL (7.6-11.0); Carbon Dioxide 21.0 mmol/L (21.0-32.0); Chloride 106 mmol/L (98-108); Estimated Creatinine Clearance 31.45 ml/min (50-250); Glucose 101 mg/dL (70-99); Magnesium 2.3 mg/dL (1.5-2.2); Potassium 4.0 mmol/L (3.3-5.1)
[2024-12-03 05:41] LABS: Differential Indicated SCAN CRITERIA MET
[2024-12-03] MEDS: Thiamine Hydrochloride 100 MG Tablet PO (09:53)
[2024-12-03] MEDS: Cholecalciferol (Vit D3) 125 MCG CAPSULE (5,000 UNITS) PO (09:55)
[2024-12-03] MEDS: APIXABAN 2.5 MG TABLET (WCH) PO ×2 (10:33→20:55)
--- NOTE | 2024-12-03 10:42 | PCM.PN.HOSP ---
Reason for Visit Chief Complaint: Dizziness/lightheadedness with gait unsteadiness and fall at home Subjective Subjective Patient did well overnight, and this morning sitting up felt lightheaded again, reports she thinks it is worse when she bends her head forward, felt a little nauseous earlier but not at time of evaluation, not presently having any chest pain or changes in her breathing Objective Data Objective Data Vital Signs: Vital Signs Temp Pulse Resp BP Pulse Ox O2 Del Method 97.6 F L 118 H 18 107/75 99 Room Air 12/03/24 02:00 12/03/24 09:54 12/03/24 02:00 12/03/24 02:00 12/03/24 02:00 12/03/24 07:46 Oxygen Delivery Method Room Air Weight: 50.712 kg Body Mass Index (BMI) 18.6 Intake & Output: Intake and Output for Last 24 Hours 12/01/24 12/02/24 12/03/24 23:59 23:59 23:59 Intake Total 1455.67 / 1455.67 1150 / 1500 550 / 550 Output Total 300 / 300 Balance 1155.67 / 1155.67 1150 / 1500 550 / 550 Lab / Micro Data 12/03/24 04:18 12/03/24 04:18 Labs: Laboratory Results - last 24 hr 12/02/24 16:50: Troponin T High Sens 42 H 12/02/24 19:00: Troponin T Hi Sens 2 Hr 41 H 12/02/24 21:55: Troponin T Hi Sens 4Hr 48 H 12/03/24 04:18: WBC 3.0 L, RBC 4.07 L, Hgb 13.5, Hct 39.3, MCV 96.6, MCH 33.2 H, MCHC 34.4, RDW Std Deviation 51.2 H, RDW Coeff of Sharad 14.4, Plt Count 98 L, MPV 11.4, Immature Gran % (Auto) 0.300, Neut % (Auto) 47.2, Lymph % (Auto) 33.8, [place] % (Auto) 15.7 H, Eos % (Auto) 2.3, Baso % (Auto) 0.7, Absolute Neuts (auto) 1.4 L, Absolute Lymphs (auto) 1.01, Nucleated RBC % 0, Platelet Estimate MOD DEC, Sodium 137, Potassium 4.0, Chloride 106, Carbon Dioxide 21.0, Anion Gap 10, BUN 20 H, Creatinine 0.99, Estim Creat Clear Calc 31.45 L, Est GFR (MDRD) Non-Af 55 L, BUN/Creatinine Ratio 20.1 H, Glucose 101 H, Calcium 8.2, Magnesium 2.3 H Micro: Microbiology 12/01/24 10:25 Urine, Clean Catch Urine Culture - Preliminary Presumptive E. coli Radiography Diagnostic Testing: Radiology Impression Echocardiogram 12/01/24 15:00 Interpretation Summary Normal left ventricular size. Mildly increased left ventricular wall thickness. Global hypokinesis with severe mid to apical hypokinesis and normal basal anterior, anteriorlateral wall motion. Moderately reduced LVEF ; estimated ejection fraction of 35%. Abnormal septal motion secondary to paced rhythm, D-shaped septum in diastole suggestive of increased right ventricular volume. Indeterminate diastolic function. Moderately dilated left atrium Mildly dilated right atrium Mild Right ventricular dilation with preserved function. Pacemaker lead noted in the RV. Unable to estimate RV systolic pressure due to insufficient tricuspid regurgitant envelope. Ordering Physician: Marga Butcher Referring Physician: Ede Mao Performed By: Jewell Sarkar, BAHMAN, RVT Physical Exam Narrative General: Alert, oriented HEENT: Atraumatic, normocephalic Eyes: Anicteric, normal conjunctiva, extraocular movements grossly intact Neck: Supple Respiratory: Normal respiratory effort, no overt wheezes or rhonchi Cardiovascular: Slightly irregular GI: Soft, nontender, nondistended Extremities: No significant pitting edema Musculoskeletal: Moving all extremities, does have changes consistent with RA in her hands Neuro: No overt focal neurological deficits Skin: No rashes appreciated Psych: Cooperative Assessment & Plan Assessment/Plan (1) Dizziness: (2) Fall: PLAN: Plan #Dizziness/lightheadedness with gait unsteadiness and fall at home ? Admit under observation status to [facility]. PT/OT/case management consulted. Unclear etiology but symptoms do seem most consistent with presyncopal symptoms. Very low concern for stroke given numbness/tingling is reportedly present in bilateral hands and feet and no motor symptoms are noted. Home medications and dehydration would be likely contributors to presyncopal symptoms. Unable to obtain orthostatic vitals in ED as patient could not stand without significant symptoms. Given 1 L of IV fluids in the ED; will give another 1 L of fluids over several hours this evening. Hold home Lasix, Jardiance, Lopressor, Entresto and spironolactone for now. Appreciate therapy recommendations. -12/01: Blood pressure remains low 100s and high 90s despite holding Lasix, Jardiance, Lopressor, Entresto and spironolactone. Suspect patient may have been fairly hypotensive at home given her blood pressure you been off of those medications, given this is a change we will check a repeat echo to see if there are any major changes that would be contributing. Could always consider midodrine and resuming some of patient's home medications at lower doses and as tolerated. Patient to work with PT/OT. Did check UA to assess for any underlying occult infection but this was not suggestive of UTI -12/02: Patient initially felt better and orthostats were negative however had another episode of lightheadedness, EKG showed EF that is the same but did show some wall motion abnormalities. Patient has not had any chest pain or shortness of breath, unclear significance, EKG showed a ventricularly paced rhythm with frequent atrial paced complexes. Had patient's pacemaker interrogated and it reportedly showed dyssynchrony and that some P waves were not being recognized, settings were adjusted to improve consistency and capture and that information will be given to her outpatient cardiology office who is monitoring her pacemaker. Unclear if this desynchrony may have had any bearing on these lightheaded episodes as reportedly there appeared to be some episodes and was a flutter as well, blood pressure 111/72, restarting beta-kemal at low-dose and will uptitrate as tolerated, will consult cardiology given the echo changes with lightheaded episodes suspected to be cardiac in nature, cycling troponins given the wall motion abnormalities however no current pain or active ACS suspected, unclear if she could have had an event previous or a silent [place] sometime within the last year since her last echo. Start back medications as tolerated, will place patient on MedSurg telemetry, given she is not having any active cardiac complaints do not think patient needs urgently transferred to PCU however if any additional concerns arrived can transfer floors. Currently stable. Appreciate cardiology recommendations -12/03: Heart rate now in the 1 teens and still intermittently irregular, blood pressure is still stable low 100s, increasing her beta-kemal, continuing amiodarone, reports today that symptoms seem worse when she tips her neck forward and noted family history of carotid stenosis, patient agreeable for carotid duplex. Cardiology consult pending, patient being monitored on telemetry. Patient is not had chest pain but did check troponins yesterday given wall motion abnormality, they were fairly flat # Chronic HFrEF, paroxysmal A-fib on Eliquis, history of complete heart block s/p pacemaker placement, hypertension, hyperlipidemia/coronary artery disease status post stenting ? Follows with cardiology, last office visit in August. History of STEMI with stenting to RCA x 1 in 2019. Had multiple ED visits for presyncopal symptoms and 2022 and was found to have A-fib. Had DEBRA cardioversion done in January 2023. Continued to have presyncopal symptoms and was then found to have complete heart block s/p pacemaker placement in January 2023. Last echo in 11/2023 showed EF 35%, moderate global hypokinesis of the LV, mildly dilated RV, no significant valvular disease. Concern for home medications contributing to presentation as above. Given IV fluids and holding home meds as above. Continue home Eliquis and amiodarone. -12/01: Patient on amiodarone and Eliquis, other medications held due to low blood pressure. Obtaining echo as above, monitor fluid status, presently does not appear overloaded -12/02: Repeat EF 35% with wall motion abnormalities that were not present previously, given this with patient's intermittent lightheaded episodes and the above cardiology consulted -12/03: Anemia, increasing beta-kemal, blood pressure is better than it was on admission. Weight has been stable and no signs or symptoms of fluid overload though is listed as positive fluid balance, do not think accurate output has been documented # Tingling in fingers and toes -12/01: Unclear etiology, this is symmetric in upper and lower extremities so do not think this is consistent with stroke, does report poor p.o. intake at home and that she will have to remind herself to eat. Will check B12, check magnesium, will start patient on thiamine and folate -12/02: This remains, unclear if there is a peripheral neuropathy, managing the above, may need further workup or monitoring on an outpatient basis if this does not improve -12/03: Continue to monitor, may need to consider EMG on outpatient basis or further workup Chronic medical problems and/or problems not being actively addressed during today's encounter: # History of breast cancer s/p mastectomy and chemotherapy ? Follows with oncology, last office visit in October. Currently under observation. No inpatient needs, continue outpatient follow-up. # Hypothyroidism ? TSH within normal limits, continue on Synthroid # History of RA - Patient on injectables outpatient #DVT ppx: Chronically on Eliquis Marga Butcher MD Time spent in the patient's overall evaluation, decision-making process, review of diagnostic data, adjustment of management, discussion with other providers, nursing and ancillary staff involved in patient's care documentation, 39 minutes Charges/Coding Visit Charges Inpatient E&M: 32272 Init Hosp L2
--- NOTE | 2024-12-03 10:45 | CDU_ITS ---
Reason For Study Reason For Study: Presyncope Rt. Velocities/BP Lt. Velocities/BP Prox CCA 47/9 cm/sec. Prox CCA 41/6 cm/sec. Mid CCA 33/8 cm/sec. Mid CCA 39/6 cm/sec. Dist CCA 29/7 cm/sec. Dist CCA 39/8 cm/sec. Prox ICA 41/11 cm/sec. Prox ICA 33/10 cm/sec. Mid ICA 74/20 cm/sec. Mid ICA 52/12 cm/sec. Dist ICA 59/18 cm/sec. Dist ICA 111/23 cm/sec. Rt. ICA/CCA = 2.3. Lt. ICA/CCA = 2.8. Prox ECA 24/0 cm/sec. Prox ECA 52/0 cm/sec. Rt. Vert. 42/7 cm/sec. Lt. Vert. 39/9 cm/sec. Right Extracranial There is heterogeneous, irregular atherosclerotic plaque noted in the right common carotid artery. There is heterogeneous, irregular atherosclerotic plaque noted in the right internal carotid artery. The right internal carotid artery is very tortuous. There is no significant atherosclerotic plaque noted in the right external carotid artery. Antegrade flow is noted in the right vertebral artery. Left Extracranial There is intimal thickening but no significant atherosclerotic plaque noted in the left common carotid artery. There is heterogeneous, irregular atherosclerotic plaque noted in the left internal carotid artery. There is intimal thickening but no significant atherosclerotic plaque noted in the left external carotid artery. Antegrade flow is noted in the left vertebral artery. Procedure Carotid Duplex [id number]. This is a Carotid Duplex examination using B-mode, color flow and specral Doppler. Exam performed portable in patient room. VL/Carotid Duplex Ultrasound Interpretation Summary Mild (<50%) stenosis right extracranial internal carotid. Mild (<50%) stenosis left extracranial internal carotid. Patent and antegrade vertebrals bilaterally. Ordering Physician: Marga Butcher Referring Physician: Ede Mao Performed By: Gianna Londono, RDCS, RVT
--- NOTE | 2024-12-03 12:25 | PCM.CONS.C ---
Documented by User: Dr. Savi Patel MD 12/03/24 15:50 Assessment & Plan Assessment/Plan (1) Dizziness: (2) Fall: (3) Complete heart block: PLAN: s/p Pacemaker in place. (4) AF (paroxysmal atrial fibrillation): PLAN: - Patient with history of p. afib s/p cardioversion in the past, has been on metoprolol and amiodarone to maintain sinus rhythm. - Pacemaker interrogation showed increase episodes of atrial flutter/atrial fibrillation. - Pacemaker interrogation also showed under sensing that was adjusted yesterday after which the patient felt better. - Today the patient has tachycardia with paced rhythm findings suggestive of pacemaker mediated tachycardia, with questionable underlying atrial flutter - Dizziness could be likely secondary to tachycardia, in addition to cardiomyopathy, on top of underlying decreased vascular tone with baseline hypotension and orthostasis appears to be negative. - Will continue metoprolol and uptitrate as tolerated by blood pressure, will give 1 dose of metoprolol 5 mg to cut down on the conduction between the atria and ventricle and reevaluate the heart rate, continue amiodarone 200 mg p.o. daily. - Reevaluate the pacemaker function, if PVARP needs to be adjusted. - Continue Eliquis for anticoagulation however was using 2.5 twice daily given age and increased risk of falling. - Will hold off on Entresto and afterload reducing medication until blood pressure stable, hold on Lasix and any diuretics for now, will add DONAVON hose for better support and checking orthostatic vitals periodically. (5) Congestive heart failure (CHF): QUALIFIERS: Heart failure chronicity: chronic Heart failure type: systolic Qualified Code(s): I50.22 - Chronic systolic (congestive) heart failure PLAN: - Patient has chronic cardiomyopathy likely ischemic given history of coronary disease with wall motion normalities noted on 2D echo that was done during this admission with a EF estimated to be 35% and wall motion normalities as listed above in the echo findings. - RV is dilated with preserved function, with findings suggestive of RV volume overload. - Continue metoprolol and uptitrate as tolerated, will hold off on Entresto and afterload reducing agents, monitor blood pressure until tachycardia is controlled and blood pressure is more stable. - Patient appears to be euvolemic no need for diuresis will continue to monitor. (6) Non-rheumatic mitral regurgitation: PLAN: - Secondary mitral regurgitation with left atrial dilation likely secondary to underlying cardiomyopathy (7) History of coronary artery stent placement: PLAN: - CAD s/p PCI - Appears stable, no chest pain. - tpn mildly elevated. - there are echo changes suggestive of unerlying scarring. - Will consider pharmacological stress test prior to discharge. - Will add aspirin to Eliquis 2.5 and will add Lipitor. (8) Hyperlipidemia: QUALIFIERS: Hyperlipidemia type: mixed hyperlipidemia Qualified Code(s): E78.2 - Mixed hyperlipidemia PLAN: - Will start statins. HPI Consult Data Date of Consult: 12/03/24 HPI Narrative Reason for Consultation: Dizziness HPI Narrative: ROBERTO RASMUSSEN, is a 89 F who presents with dizziness and a fall She presented to [facility] ED on 11/30/2024 with dizziness/lightheadedness with gait unsteadiness and fall at home. Patient lives at home alone, has fairly good functional status at baseline. Daughter lives nearby. 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 Patient notes that she got up around 5 AM this morning to use the bathroom and felt lightheaded and dizzy leading to a fall onto her elbow. She did reportedly hit her head as well. She was able to crawl over to the sofa and went back to bed for a period of time, but when she got up around 9 AM she continued to have lightheadedness with dizziness when trying to stand and ambulate, so she called her daughter and came in for further evaluation. Patient has history of paroxysmal atrial fibrillation status post cardioversion has been in normal sinus with increased episodes of paroxysmal A-fib/flutter with RVR lately according to pacemaker interrogation, pacemaker interrogation also showed under sensing of the atrial lead after increasing sensing according to the rep done yesterday patient has been feeling better overnight temporarily this morning the patient started to feel dizzy again especially with head movement she is tachycardic with questionable pacemaker mediated tachycardia involved. She denies active chest pain, no shortness of breath at rest still dizzy with sitting or standing, complains of neck pain from arthritis she is very unsteady using a walker to walk. [facility] Medical History (Updated 12/03/24 @ 15:[address] Savi Patel MD) Anxiety Depression Hypothyroidism Non-smoker Atrial fibrillation Congestive heart failure (CHF) Pacemaker Myocardial infarct Shingles Atrial tachycardia Presence of permanent cardiac pacemaker CKD (chronic kidney disease) stage 3, GFR 30-59 ml/min Non-rheumatic mitral regurgitation Mitral valve insufficiency Rheumatoid arthritis STEMI (ST elevation myocardial infarction) Atherosclerosis of coronary artery of [place] heart without angina pectoris History of coronary artery stent placement (04/12/20) Osteomyelitis of left lower extremity 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 Colonization status Contamination 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 Venous insufficiency (chronic) (peripheral) Delayed wound healing Other specified peripheral vascular diseases Non-pressure chronic ulcer of unspecified part of left lower leg with fat layer exposed Staph infection Left ankle swelling History of malignant neoplasm of right breast Fx cervical vert NOS-closed Fx clavicle Arthritis Malignant neoplasm of right female breast Osteopenia Home Medications ?Medication ?Instructions ?Recorded ?Last Taken ?Type acetaminophen 500 mg tablet 1,000 mg PO BID pain 04/12/20 05/16/20 History levothyroxine 75 mcg tablet 100 mcg PO DAILY thyroid 04/06/23 05/07/23 History calcium carbonate 1,000 mg PO DAILY@0800 PRN 04/07/23 11/29/24 History indigestion dapagliflozin propanediol 10 mg 10 mg PO QAM #90 tabs 02/01/24 11/29/24 Rx tablet (Farxiga) metoprolol tartrate 50 mg tablet 50 mg PO BID #180 tabs 05/01/24 Unknown Rx amiodarone 200 mg tablet 200 mg PO DAILY #90 tabs 06/20/24 11/29/24 Rx spironolactone 25 mg tablet 25 mg PO QAM #90 tabs 06/20/24 11/29/24 Rx furosemide 40 mg tablet 40 mg PO QDAY #30 tabs 07/26/24 11/29/24 Rx apixaban 2.5 mg tablet 2.5 mg PO BID #180 tabs 09/12/24 11/29/24 Rx mirtazapine 30 mg tablet 45 mg PO DAILY 09/12/24 11/29/24 History sacubitril 24 mg-valsartan 26 mg 1 tab PO BID #180 tabs 09/12/24 11/29/24 Rx tablet (Entresto) Allergy/AdvReac Type Severity Reaction Status Date / Time ticagrelor (From Brilinta) AdvReac Severe Severe Verified 11/30/24 10:43 dyspnea on exertion Family History Father Clotting disorder Heart disease Surgical History History of cardioversion (01/27/23) History of ankle surgery History of left heart catheterization (LHC) (~01/02/21) Presence of coronary angioplasty implant and graft (~04/12/20) History of arthroplasty of left ankle History of tubal ligation History of mastectomy Social History Smoking Status: Never smoker alcohol intake: never substance use type: does not use caffeine: Yes Physical Exam Narrative General: Alert, oriented x3, elderly, frail HEENT: Normocephalic, normal vision, normal EOM. Neck: Normal JVD, no carotid Bruit, no thyromegaly , no lymphadenopathy. Chest wall: Pacemaker pocket appears to be stable, normal shape, non tender. Cardiac: Regular tachycardia, no rubs, gallops or murmurs noted. Respiratory: Clear to auscultation bilaterally. Abdomen: Nondistended, nontender, no ascites or masses or organomegaly noted, normal bowel sounds. Extremities: Rheumatoid changes of her right hand , normal pulsations, no edema, normal strength and muscle mass. Neurological: Gross CN examination is normal, Normal power in all extremities. Objective Data Vital Signs: Vital Signs Temp Pulse Resp BP Pulse Ox O2 Del Method 98.6 F 118 H 18 107/70 99 Room Air 12/03/24 08:00 12/03/24 09:54 12/03/24 08:00 12/03/24 08:00 12/03/24 08:00 12/03/24 08:00 Oxygen Delivery Method Room Air Weight: 111 lb 12.8 oz Body Mass Index (BMI) 18.6 Intake & Output: Intake and Output for Last 24 Hours 12/01/24 12/02/24 12/03/24 23:59 23:59 23:59 Intake Total 1455.67 / 1455.67 1150 / 1500 550 / 550 Output Total 300 / 300 Balance 1155.67 / 1155.67 1150 / 1500 550 / 550 Lab / Micro Data 12/04/24 05:25 12/03/24 04:18 Labs: Laboratory Results - last 24 hr 12/02/24 16:50: Troponin T High Sens 42 H 12/02/24 19:00: Troponin T Hi Sens 2 Hr 41 H 12/02/24 21:55: Troponin T Hi Sens 4Hr 48 H 12/03/24 04:18: WBC 3.0 L, RBC 4.07 L, Hgb 13.5, Hct 39.3, MCV 96.6, MCH 33.2 H, MCHC 34.4, RDW Std Deviation 51.2 H, RDW Coeff of Sharad 14.4, Plt Count 98 L, MPV 11.4, Immature Gran % (Auto) 0.300, Neut % (Auto) 47.2, Lymph % (Auto) 33.8, [place] % (Auto) 15.7 H, Eos % (Auto) 2.3, Baso % (Auto) 0.7, Absolute Neuts (auto) 1.4 L, Absolute Lymphs (auto) 1.01, Nucleated RBC % 0, Platelet Estimate MOD DEC, Sodium 137, Potassium 4.0, Chloride 106, Carbon Dioxide 21.0, Anion Gap 10, BUN 20 H, Creatinine 0.99, Estim Creat Clear Calc 31.45 L, Est GFR (MDRD) Non-Af 55 L, BUN/Creatinine Ratio 20.1 H, Glucose 101 H, Calcium 8.2, Magnesium 2.3 H Micro: Microbiology 12/01/24 10:25 Urine, Clean Catch Urine Culture - Preliminary Presumptive E. coli Cardiology Labs/Tests 12/03/24 04:18: WBC 3.0 L, RBC 4.07 L, Hgb 13.5, Hct 39.3, MCV 96.6, MCH 33.2 H, MCHC 34.4, Plt Count 98 L, MPV 11.4, Immature Gran % (Auto) 0.300, Neut % (Auto) 47.2, Lymph % (Auto) 33.8, [place] % (Auto) 15.7 H, Eos % (Auto) 2.3, Baso % (Auto) 0.7, Absolute Neuts (auto) 1.4 L, Nucleated RBC % 0, Sodium 137, Potassium 4.0, Chloride 106, Carbon Dioxide 21.0, Anion Gap 10, BUN 20 H, Creatinine 0.99, Est GFR (MDRD) Non-Af 55 L, BUN/Creatinine Ratio 20.1 H, Glucose 101 H, Calcium 8.2, Magnesium 2.3 H Rhythm: EKG: ECHO: Stress Test: Cardiac Cath: PCI: CT Surgery: Holter monitor: EPS: PPM: CXR: Chest CT Scan: Radiography Diagnostic Testing: Radiology Impression Echocardiogram 12/01/24 15:00 Interpretation Summary Normal left ventricular size. Mildly increased left ventricular wall thickness. Global hypokinesis with severe mid to apical hypokinesis and normal basal anterior, anteriorlateral wall motion. Moderately reduced LVEF ; estimated ejection fraction of 35%. Abnormal septal motion secondary to paced rhythm, D-shaped septum in diastole suggestive of increased right ventricular volume. Indeterminate diastolic function. Moderately dilated left atrium Mildly dilated right atrium Mild Right ventricular dilation with preserved function. Pacemaker lead noted in the RV. Unable to estimate RV systolic pressure due to insufficient tricuspid regurgitant envelope. Ordering Physician: Marga Butcher Referring Physician: Ede Mao Performed By: Jewell Sarkar, BAHMAN, RVT Documented by User: Dr. Elias Arevalo MD 12/04/24 06:47 Assessment & Plan Assessment/Plan (1) Dizziness: (2) Fall: (3) Complete heart block: (4) AF (paroxysmal atrial fibrillation): (5) Congestive heart failure (CHF): QUALIFIERS: Heart failure chronicity: chronic Heart failure type: systolic Qualified Code(s): I50.22 - Chronic systolic (congestive) heart failure (6) Non-rheumatic mitral regurgitation: (7) History of coronary artery stent placement: (8) Hyperlipidemia: QUALIFIERS: Hyperlipidemia type: mixed hyperlipidemia Qualified Code(s): E78.2 - Mixed hyperlipidemia HPI Consult Data Date of Consult: 12/04/24 [facility] Medical History (Updated 12/03/24 @ 15:[address] Savi Patel MD) Anxiety Depression Hypothyroidism Non-smoker Atrial fibrillation Congestive heart failure (CHF) Pacemaker Myocardial infarct Shingles Atrial tachycardia Presence of permanent cardiac pacemaker CKD (chronic kidney disease) stage 3, GFR 30-59 ml/min Non-rheumatic mitral regurgitation Mitral valve insufficiency Rheumatoid arthritis STEMI (ST elevation myocardial infarction) Atherosclerosis of coronary artery of [place] heart without angina pectoris History of coronary artery stent placement (04/12/20) Osteomyelitis of left lower extremity 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 Colonization status Contamination 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 Venous insufficiency (chronic) (peripheral) Delayed wound healing Other specified peripheral vascular diseases Non-pressure chronic ulcer of unspecified part of left lower leg with fat layer exposed Staph infection Left ankle swelling History of malignant neoplasm of right breast Fx cervical vert NOS-closed Fx clavicle Arthritis Malignant neoplasm of right female breast Osteopenia Home Medications ?Medication ?Instructions ?Recorded ?Last Taken ?Type acetaminophen 500 mg tablet 1,000 mg PO BID pain 04/12/20 05/16/20 History levothyroxine 75 mcg tablet 100 mcg PO DAILY thyroid 04/06/23 05/07/23 History calcium carbonate 1,000 mg PO DAILY@0800 PRN 04/07/23 11/29/24 History indigestion dapagliflozin propanediol 10 mg 10 mg PO QAM #90 tabs 02/01/24 11/29/24 Rx tablet (Farxiga) metoprolol tartrate 50 mg tablet 50 mg PO BID #180 tabs 05/01/24 Unknown Rx amiodarone 200 mg tablet 200 mg PO DAILY #90 tabs 06/20/24 11/29/24 Rx spironolactone 25 mg tablet 25 mg PO QAM #90 tabs 06/20/24 11/29/24 Rx furosemide 40 mg tablet 40 mg PO QDAY #30 tabs 07/26/24 11/29/24 Rx apixaban 2.5 mg tablet 2.5 mg PO BID #180 tabs 09/12/24 11/29/24 Rx mirtazapine 30 mg tablet 45 mg PO DAILY 09/12/24 11/29/24 History sacubitril 24 mg-valsartan 26 mg 1 tab PO BID #180 tabs 09/12/24 11/29/24 Rx tablet (Entresto) Allergy/AdvReac Type Severity Reaction Status Date / Time ticagrelor (From Brilinta) AdvReac Severe Severe Verified 11/30/24 10:43 dyspnea on exertion Family History Father Clotting disorder Heart disease Surgical History History of cardioversion (01/27/23) History of ankle surgery History of left heart catheterization (LHC) (~01/02/21) Presence of coronary angioplasty implant and graft (~04/12/20) History of arthroplasty of left ankle History of tubal ligation History of mastectomy Social History Smoking Status: Never smoker alcohol intake: never substance use type: does not use caffeine: Yes Risk Stratification Risk Stratification Applicable: No Lab / Micro Data 12/04/24 05:25 12/03/24 04:18
--- NOTE | 2024-12-03 16:22 | NURSING ---
Addendum entered by Claudia Gilliam 12/03/24 16:34: talked with Rep Knott who is currently in [place]- talked with [employer]acer company again- aware they will page local rep liyah Original Note: pacer rep Knott paged for device interrogation [id number]
--- NOTE | 2024-12-03 16:25 | NURSING ---
primary RN updated on room assignment of [id number]
--- NOTE | 2024-12-03 16:29 | MDS.RN ---
s/p cardizem iv b/p 97/67-pulse 104 5 minutes after cardizem s/p cardizem iv b/p 94/62 pulse 105 10 minutes after cardizem pacer rep notified of need for interrogation again today
--- NOTE | 2024-12-03 16:48 | NURSING ---
talked with patient updated on transfer to [facility], offered to call family pt states states she will call her daughter herself. eliza primary RN and clerical production worker Janeth transporting pt, c. tele monitoring maintained.
--- NOTE | 2024-12-03 16:54 | NURSING ---
talked with pacer rep. Arnold Shay explained Dr. Patel's request for repeat interrogation and read him part of his not regarding PVARP. Arnold requested to talk to Dr. Patel requesting that we do pacer interrogation. Arnold informed this nurse could not consent to this he would have to talk to Dr. Patel. Also informed Arnold that pt was being moved to [facility] 107. call placed to [facility] charge nurse Perla and christina.
[2024-12-03] MEDS: Ensure Plus High Protein 120 ML LIQUID PO (20:54)
[2024-12-04] VITALS (7 sets, daily range): BP systolic 105–132; BP diastolic 57–84; PULSE 58–96; RESP 16–18; TEMP 36.4–36.7; O2SAT 96–100
[2024-12-04 06:16] LABS: Hematocrit 39.5 % (37-47); Hemoglobin 13.6 g/dL (12.0-15.0); Immature Granulocytes Count 0.010 X10^3/uL (0.0-0.0); Mean Corp Hgb Conc 34.4 g/dL (32-36); Mean Corpuscular Volume 96.6 fL (81-99); Mean Platelet Vol. 11.9 fl (6.2-12.0); NRBC Flagged by Analyzer 0 % (0-5); POSITIVE COUNT YES; Platelet Count 91 K/mm3 (150-450); RBC Distribution Width CV 14.4 % (11.6-14.6); RBC Distribution Width SD 50.8 fl (35.1-43.9); Red Blood Count 4.09 M/mm3 (4.2-5.4); White Blood Count 3.2 K/mm3 (4.4-11.0)
[2024-12-04 06:49] LABS: Anion Gap 12 (5-15); BUN 23 mg/dL (4-19); BUN/Creat Ratio 19.9 RATIO (10-20); Calcium,Total 8.3 mg/dL (7.6-11.0); Carbon Dioxide 19.7 mmol/L (21.0-32.0); Chloride 102 mmol/L (98-108); Estimated Creatinine Clearance 27.31 ml/min (50-250); Glucose 88 mg/dL (70-99); Potassium 4.2 mmol/L (3.3-5.1)
[2024-12-04] MEDS: Cholecalciferol (Vit D3) 125 MCG CAPSULE (5,000 UNITS) PO (08:21)
[2024-12-04] MEDS: Thiamine Hydrochloride 100 MG Tablet PO (08:21)
[2024-12-04] MEDS: APIXABAN 2.5 MG TABLET (WCH) PO ×2 (08:42→20:58)
--- NOTE | 2024-12-04 10:58 | PCM.PN.CARD ---
Subjective Subjective Patient seen and evaluated. Objective Data Vital Signs: Vital Signs Temp Pulse Resp BP Pulse Ox O2 Del Method 97.9 F 61 16 121/74 H 96 Room Air 12/04/24 07:55 12/04/24 08:20 12/04/24 07:55 12/04/24 08:01 12/04/24 07:55 12/04/24 07:55 Oxygen Delivery Method Room Air Weight: 111 lb 12.8 oz Body Mass Index (BMI) 18.6 Intake & Output: Intake and Output for Last 24 Hours 12/02/24 12/03/24 12/04/24 23:59 23:59 23:59 Intake Total 1150 / 1500 850 / 970 150 / 150 Balance 1150 / 1500 850 / 970 150 / 150 Lab / Micro Data 12/04/24 05:25 12/04/24 05:25 Labs: Laboratory Results - last 24 hr 12/04/24 05:25: WBC 3.2 L, RBC 4.09 L, Hgb 13.6, Hct 39.5, MCV 96.6, MCH 33.3 H, MCHC 34.4, RDW Std Deviation 50.8 H, RDW Coeff of Sharad 14.4, Plt Count 91 L, MPV 11.9, Immature Gran % (Auto) 0.300, Neut % (Auto) 44.3 L, Lymph % (Auto) 35.9, [place] % (Auto) 16.1 H, Eos % (Auto) 2.8, Baso % (Auto) 0.6, Absolute Neuts (auto) 1.4 L, Absolute Lymphs (auto) 1.16, Nucleated RBC % 0, Sodium 133, Potassium 4.2, Chloride 102, Carbon Dioxide 19.7 L, Anion Gap 12, BUN 23 H, Creatinine 1.14, Estim Creat Clear Calc 27.31 L, Est GFR (MDRD) Non-Af 46 L, BUN/Creatinine Ratio 19.9, Glucose 88, Calcium 8.3 Micro: Microbiology 12/01/24 10:25 Urine, Clean Catch Urine Culture - Final Presumptive E. coli Mixed Gram Positive Organisms Cardiology Labs/Tests 12/04/24 05:25: WBC 3.2 L, RBC 4.09 L, Hgb 13.6, Hct 39.5, MCV 96.6, MCH 33.3 H, MCHC 34.4, Plt Count 91 L, MPV 11.9, Immature Gran % (Auto) 0.300, Neut % (Auto) 44.3 L, Lymph % (Auto) 35.9, [place] % (Auto) 16.1 H, Eos % (Auto) 2.8, Baso % (Auto) 0.6, Absolute Neuts (auto) 1.4 L, Nucleated RBC % 0, Sodium 133, Potassium 4.2, Chloride 102, Carbon Dioxide 19.7 L, Anion Gap 12, BUN 23 H, Creatinine 1.14, Est GFR (MDRD) Non-Af 46 L, BUN/Creatinine Ratio 19.9, Glucose 88, Calcium 8.3 Rhythm: EKG: ECHO: Stress Test: Cardiac Cath: PCI: CT Surgery: Holter monitor: EPS: PPM: CXR: Chest CT Scan: Physical Exam Const alert, oriented x3 and no apparent distress General Appearance: cooperative HEENT hearing grossly normal bilaterally Head and Scalp: atraumatic Eyes EOMs intact bilaterally Neck General: normal visual inspection Chest inspection of chest normal and palpation of chest normal Resp normal respiratory effort Auscultation: clear to auscultation bilaterally Cardio regular rate, regular rhythm, S1 normal heart sound and S2 normal heart sound Jugular Venous Distention: JVD GI normal to inspection, nondistended, normoactive bowel sounds Extremity normal capillary refill and no pedal edema Peripheral Pulses: Yes pulses 2+ throughout and femoral pulses present Skin no rashes or lesions noted Neuro oriented x3 and CN's II-XII intact bilaterally Psych Appearance: grossly normal and appropriate Assessment & Plan Assessment/Plan (1) Complete heart block: PLAN: s/p Pacemaker in place. (2) AF (paroxysmal atrial fibrillation): PLAN: - Patient with history of p. afib s/p cardioversion in the past, has been on metoprolol and amiodarone to maintain sinus rhythm. - Pacemaker interrogation showed increase episodes of atrial flutter/atrial fibrillation. - Pacemaker interrogation also showed under sensing that was adjusted yesterday after which the patient felt better. - This has been adjusted and amiodarone added and she is currently AV sequentially paced. (3) Congestive heart failure (CHF): QUALIFIERS: Heart failure type: systolic Heart failure chronicity: chronic Qualified Code(s): I50.22 - Chronic systolic (congestive) heart failure PLAN: - Patient has chronic cardiomyopathy likely ischemic given history of coronary disease with wall motion normalities noted on 2D echo that was done during this admission with a EF estimated to be 35% and wall motion normalities as listed above in the echo findings. - RV is dilated with preserved function, with findings suggestive of RV volume overload. - Continue metoprolol and uptitrate as tolerated, will hold off on Entresto and afterload reducing agents, monitor blood pressure until tachycardia is controlled and blood pressure is more stable. - Patient appears to be euvolemic no need for diuresis will continue to monitor. This can be followed up as an outpatient. (4) Non-rheumatic mitral regurgitation: PLAN: - Secondary mitral regurgitation with left atrial dilation likely secondary to underlying cardiomyopathy (5) History of coronary artery stent placement: PLAN: - CAD s/p PCI - Appears stable, no chest pain. - tpn mildly elevated. - Will add aspirin to Eliquis 2.5 and will add Lipitor. (6) Hyperlipidemia: QUALIFIERS: Hyperlipidemia type: mixed hyperlipidemia Qualified Code(s): E78.2 - Mixed hyperlipidemia PLAN: - Will start statins. (7) Pacemaker: PLAN: Pacemaker interrogated today and is noted to be functioning well.
--- NOTE | 2024-12-04 15:08 | PN.HOSP_ITS ---
Reason for Visit Chief Complaint: Dizziness/lightheadedness with gait unsteadiness and fall at home Subjective Subjective Saw patient at bedside this morning. Patient was sitting back fairly comfortably in bed and in no acute distress. She continues to report presyncopal type symptoms and numbness/tingling in her extremities especially with certain movements of her head. Notably orthostatic vitals were normal this morning. Pacemaker was interrogated today and per Dr. Arevalo, it is functioning well with no issues. Carotid ultrasound was obtained this morning, read pending. Patient states that she is concerned her symptoms may be secondary to cervical spine issues in the setting of her known significant history of rheumatoid arthritis. No other new concerns today. Objective Data Objective Data Vital Signs: Vital Signs Temp Pulse Resp BP Pulse Ox O2 Del Method 97.9 F 61 16 121/74 H 96 Room Air 12/04/24 07:55 12/04/24 08:20 12/04/24 07:55 12/04/24 08:01 12/04/24 07:55 12/04/24 07:55 Oxygen Delivery Method Room Air Weight: 50.712 kg Body Mass Index (BMI) 18.6 Intake & Output: Intake and Output for Last 24 Hours 12/02/24 12/03/24 12/04/24 23:59 23:59 23:59 Intake Total 1150 / 1500 850 / 970 150 / 150 Balance 1150 / 1500 850 / 970 150 / 150 Lab / Micro Data 12/04/24 05:25 12/04/24 05:25 Labs: Laboratory Results - last 24 hr 12/04/24 05:25: WBC 3.2 L, RBC 4.09 L, Hgb 13.6, Hct 39.5, MCV 96.6, MCH 33.3 H, MCHC 34.4, RDW Std Deviation 50.8 H, RDW Coeff of Sharad 14.4, Plt Count 91 L, MPV 11.9, Immature Gran % (Auto) 0.300, Neut % (Auto) 44.3 L, Lymph % (Auto) 35.9, M wiley % (Auto) 16.1 H, Eos % (Auto) 2.8, Baso % (Auto) 0.6, Absolute Neuts (auto) 1.4 L, Absolute Lymphs (auto) 1.16, Nucleated RBC % 0, Sodium 133, Potassium 4.2, Chloride 102, Carbon Dioxide 19.7 L, Anion Gap 12, BUN 23 H, Creatinine 1.14, Estim Creat Clear Calc 27.31 L, Est GFR (MDRD) Non-Af 46 L, BUN/Creatinine Ratio 19.9, Glucose 88, Calcium 8.3 Micro: Microbiology 12/01/24 10:25 Urine, Clean Catch Urine Culture - Final Presumptive E. coli Mixed Gram Positive Organisms Physical Exam Const alert, oriented x3 and no apparent distress Constitutional Narrative: Elderly female, thin appearing, mildly anxious and fatigued appearing but otherwise sitting back comfortably in bed, conversing normally, in no acute distress. General Appearance: cooperative and comfortable HEENT normocephalic, head/scalp atraumatic, hearing grossly normal bilaterally, nasal mucous membranes and turbinates normal and moist oral mucous membranes Eyes PERRL, EOMs intact bilaterally and conjunctivae normal Neck full ROM Chest inspection of chest normal Resp normal respiratory effort, normal air movement, no use of accessory muscles and clear to auscultation bilaterally Cardio regular rate, regular rhythm, no murmurs and peripheral pulses 2+ throughout GI normal to inspection, nondistended, normoactive bowel sounds, soft to palpation, non-tender and non-distended Back/Spine normal ROM Extremity normal to inspection, full ROM and no pedal edema Skin no rashes or lesions noted Neuro moves all extremities and no focal motor deficits Speech: speech normal Motor Exam: strength 5/5 throughout Psych mental status grossly normal Mood & Affect: anxious Assessment & Plan Assessment/Plan (1) Dizziness: (2) Fall: PLAN: Plan Patient is an 89-year-old female who presented to [facility] ED on 11/30/2024 with dizziness/lightheadedness with gait unsteadiness and fall at home. 1. Dizziness/lightheadedness with gait and thickness and fall at home ? Unclear etiology to this point. Initially seemed most consistent with presyncopal symptoms especially considering blood pressure remained low off home heart failure medications. Had pacemaker issues as below but with adjustment, had minimal improvement in symptoms. Orthostatic vitals initially mildly positive but with fluid resuscitation are now normal. Carotid duplex ultrasound completed, read pending. With multiple negative findings, highest suspicion currently is for neurologic symptoms secondary to cervical spine instability in setting of longstanding RA. CT cervical spine on admit showed degenerative changes of the atlantoaxial joint at C1-2, along with marked degree of to space narrowing and spondylosis at C6-7. MRI cervical spine ordered. Unfortunately, Dr. Lopez is unavailable this week so if MRI shows concerning findings, may need to consider transfer for further management. 2. History of complete heart block s/p pacemaker placement ? Cardiology following. Patient had pacemaker interrogated on admit and it showed both increased episodes of A-fib/flutter as well as under sensing. Pacemaker was adjusted and with reinterrogation on 12/04, there are no further issues noted. Okay to continue home medications as below 3. Paroxysmal A-fib on Eliquis, chronic HFrEF, hypertension, hyperlipidemia ? Cardiology following as above. Last echo in 11/2023 showed EF 35%, moderate global hypokinesis of the LV, mildly dilated RV, no significant valvular disease. Repeat echo on 12/01 with stable findings from previous. Cardiology noted the patient appears euvolemic so no need for diuresis. Continue home Eliquis, statin, amiodarone and Lopressor. Per cardiology, will hold home Entresto, spironolactone, Lasix and Jardiance for now as blood pressure has remained to low normal during hospitalization. Will plan to hold these on discharge with close outpatient follow-up with cardiology. 4. History of breast cancer s/p mastectomy and chemotherapy ? Follows with oncology, last office visit in October. Currently under observation. No inpatient needs, continue outpatient follow-up. 5. Hypothyroidism ? TSH within normal limits. Continue home Synthroid. 6. RA ? Patient with history of longstanding RA. Has significant ulnar drift of her fingers consistent with RA and deformities. Continue outpatient injectables after discharge. DVT prophylaxis: Not indicated, on Eliquis CODE STATUS: Full code, verified Expected disposition: TBD Total clinical time spent by myself addressing the patient's medical issues, reviewing all the data, and collaborating with patient's care team: 35 minutes. Charges/Coding Visit Charges Inpatient E&M: 92456 Subs Hosp L2
[2024-12-05] VITALS (9 sets, daily range): BP systolic 107–124; BP diastolic 57–78; PULSE 60–84; RESP 16–18; TEMP 36.1–36.5; O2SAT 94–100
[2024-12-05 05:56] LABS: Hematocrit 38.2 % (37-47); Hemoglobin 13.2 g/dL (12.0-15.0); Mean Corp Hgb Conc 34.6 g/dL (32-36); Mean Corpuscular Volume 97.0 fL (81-99); Mean Platelet Vol. 12.1 fl (6.2-12.0); POSITIVE COUNT YES; Platelet Count 87 K/mm3 (150-450); RBC Distribution Width CV 14.3 % (11.6-14.6); RBC Distribution Width SD 50.7 fl (35.1-43.9); Red Blood Count 3.94 M/mm3 (4.2-5.4); White Blood Count 3.1 K/mm3 (4.4-11.0)
--- NOTE | 2024-12-05 06:00 | MRI_ITS ---
PROCEDURE: SPINE CERVICAL (ROUTINE) 12/05/2024 REASON FOR EXAM: ABNORMAL CT C-SPINE W/ ONGOING NEURO ISSUES TECHNIQUE: SPINE CERVICAL (ROUTINE) Multiplanar and multisequence images were obtained without IV contrast administration. COMPARISON: None. FINDINGS: Vertebrae: Cervical vertebral body heights are preserved. Bone marrow signal is unremarkable. Alignment: Anterolisthesis C4 on C5 and C5 on C6 by 3 mm and 2 mm consecutively. Spinal Cord: Cervical spinal cord is of normal size and signal intensities. Structures at the foramen magnum are unremarkable. C2-3: Facet joint arthropathy with fluid effusion. No foramina stenosis. Mild canal stenosis. C3-4: Facet joints arthropathy. No significant foraminal or canal stenosis. C4-5: Anterolisthesis by 3 mm. Facet joint arthropathy. Uncovertebral hypertrophy. Moderate right and mild left foramina stenosis. Moderate canal stenosis. C5-6: Anterolisthesis by 2 mm. Uncovertebral hypertrophy. Mild canal stenosis. No significant foraminal stenosis. C6-7: Disc desiccation. Disc bulge. Facet joint arthropathy. No significant foraminal stenosis. Mild canal stenosis. C7-T1: Unremarkable Right lung pleural effusion with airspace opacity, indeterminate. Please correlate with chest x-ray or CT chest. 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 Moderate right foramina stenosis at C4-C5. Right lung pleural effusion with airspace opacity, indeterminate. Please corre late with chest x-ray or CT chest. Reading Location: [facility]
[2024-12-05 06:15] LABS: Anion Gap 11 (5-15); BUN 24 mg/dL (4-19); BUN/Creat Ratio 21.1 RATIO (10-20); Calcium,Total 8.3 mg/dL (7.6-11.0); Carbon Dioxide 20.5 mmol/L (21.0-32.0); Chloride 103 mmol/L (98-108); Estimated Creatinine Clearance 27.55 ml/min (50-250); Glucose 81 mg/dL (70-99); Potassium 4.0 mmol/L (3.3-5.1)
--- NOTE | 2024-12-05 07:53 | PCM.PN.CARD ---
Subjective Subjective Patient seen and evaluated Objective Data Vital Signs: Vital Signs Temp Pulse Resp BP Pulse Ox O2 Del Method 97.0 F L 60 18 108/66 100 Room Air 12/05/24 03:42 12/05/24 03:42 12/05/24 03:42 12/05/24 03:42 12/05/24 03:42 12/05/24 03:42 Oxygen Delivery Method Room Air Weight: 111 lb 12.8 oz Body Mass Index (BMI) 18.6 Intake & Output: Intake and Output for Last 24 Hours 12/03/24 12/04/24 12/05/24 23:59 23:59 23:59 Intake Total 850 / 970 150 / 150 Balance 850 / 970 150 / 150 Lab / Micro Data 12/05/24 04:55 12/05/24 04:55 Labs: Laboratory Results - last 24 hr 12/05/24 04:55: WBC 3.1 L, RBC 3.94 L, Hgb 13.2, Hct 38.2, MCV 97.0, MCH 33.5 H, MCHC 34.6, RDW Std Deviation 50.7 H, RDW Coeff of Sharad 14.3, Plt Count 87 L, MPV 12.1 H, Sodium 134, Potassium 4.0, Chloride 103, Carbon Dioxide 20.5 L, Anion Gap 11, BUN 24 H, Creatinine 1.13, Estim Creat Clear Calc 27.55 L, Est GFR (MDRD) Non-Af 47 L, BUN/Creatinine Ratio 21.1 H, Glucose 81, Calcium 8.3 Cardiology Labs/Tests 12/05/24 04:55: WBC 3.1 L, RBC 3.94 L, Hgb 13.2, Hct 38.2, MCV 97.0, MCH 33.5 H, MCHC 34.6, Plt Count 87 L, MPV 12.1 H, Sodium 134, Potassium 4.0, Chloride 103, Carbon Dioxide 20.5 L, Anion Gap 11, BUN 24 H, Creatinine 1.13, Est GFR (MDRD) Non-Af 47 L, BUN/Creatinine Ratio 21.1 H, Glucose 81, Calcium 8.3 Rhythm: EKG: ECHO: Stress Test: Cardiac Cath: PCI: CT Surgery: Holter monitor: EPS: PPM: CXR: Chest CT Scan: Radiography Diagnostic Testing: Radiology Impression Carotid Duplex 12/03/24 10:45 Interpretation Summary Mild (<50%) stenosis right extracranial internal carotid. Mild (<50%) stenosis left extracranial internal carotid. Patent and antegrade vertebrals bilaterally. Ordering Physician: Marag Butcher Referring Physician: Ede Mao Performed By: Gianna Londono, BAHMAN, RVT Physical Exam Const alert, oriented x3 and no apparent distress General Appearance: cooperative HEENT hearing grossly normal bilaterally Head and Scalp: atraumatic Eyes EOMs intact bilaterally Neck General: normal visual inspection Chest inspection of chest normal and palpation of chest normal Resp normal respiratory effort Auscultation: clear to auscultation bilaterally Cardio regular rate, regular rhythm, S1 normal heart sound and S2 normal heart sound Jugular Venous Distention: JVD GI normal to inspection, nondistended, normoactive bowel sounds Extremity normal capillary refill and no pedal edema Peripheral Pulses: Yes pulses 2+ throughout and femoral pulses present Skin no rashes or lesions noted Neuro oriented x3 and CN's II-XII intact bilaterally Psych Appearance: grossly normal and appropriate Assessment & Plan Assessment/Plan (1) Complete heart block: PLAN: s/p Pacemaker in place. (2) AF (paroxysmal atrial fibrillation): PLAN: - Patient with history of p. afib s/p cardioversion in the past, has been on metoprolol and amiodarone to maintain sinus rhythm. - Pacemaker interrogation showed increase episodes of atrial flutter/atrial fibrillation. - Pacemaker interrogation also showed under sensing that was adjusted yesterday after which the patient felt better. - This has been adjusted and amiodarone added and she is currently AV sequentially paced. (3) Congestive heart failure (CHF): QUALIFIERS: Heart failure type: systolic Heart failure chronicity: chronic Qualified Code(s): I50.22 - Chronic systolic (congestive) heart failure PLAN: - Patient has chronic cardiomyopathy likely ischemic given history of coronary disease with wall motion normalities noted on 2D echo that was done during this admission with a EF estimated to be 35% and wall motion normalities as listed above in the echo findings. - RV is dilated with preserved function, with findings suggestive of RV volume overload. - Continue metoprolol and uptitrate as tolerated, will hold off on Entresto and afterload reducing agents, monitor blood pressure until tachycardia is controlled and blood pressure is more stable. - Patient appears to be euvolemic no need for diuresis will continue to monitor. This can be followed up as an outpatient. (4) Non-rheumatic mitral regurgitation: PLAN: - Secondary mitral regurgitation with left atrial dilation likely secondary to underlying cardiomyopathy (5) History of coronary artery stent placement: PLAN: - CAD s/p PCI - Appears stable, no chest pain. - tpn mildly elevated. - Will add aspirin to Eliquis 2.5 and will add Lipitor. (6) Hyperlipidemia: QUALIFIERS: Hyperlipidemia type: mixed hyperlipidemia Qualified Code(s): E78.2 - Mixed hyperlipidemia PLAN: - Will start statins. (7) Pacemaker: PLAN: Pacemaker interrogated today and is noted to be functioning well.
[2024-12-05] MEDS: Ensure Plus High Protein 120 ML LIQUID PO (09:04)
[2024-12-05] MEDS: Cholecalciferol (Vit D3) 125 MCG CAPSULE (5,000 UNITS) PO (09:05)
[2024-12-05] MEDS: APIXABAN 2.5 MG TABLET (WCH) PO ×2 (09:05→22:07)
[2024-12-05] MEDS: Thiamine Hydrochloride 100 MG Tablet PO (09:06)
--- NOTE | 2024-12-05 09:21 | PCM.PN.HOSP ---
Reason for Visit Chief Complaint: Dizziness/lightheadedness with gait unsteadiness and fall at home Subjective Subjective Patient is an 89-year-old lady admitted with dizziness and lightheadedness with fall at home Objective Data Objective Data Vital Signs: Vital Signs Temp Pulse Resp BP Pulse Ox O2 Del Method 97.6 F L 60 17 112/66 97 Room Air 12/05/24 09:00 12/05/24 09:05 12/05/24 09:00 12/05/24 09:00 12/05/24 09:00 12/05/24 09:00 Oxygen Delivery Method Room Air Weight: 50.712 kg Body Mass Index (BMI) 18.6 Intake & Output: Intake and Output for Last 24 Hours 12/03/24 12/04/24 12/05/24 23:59 23:59 23:59 Intake Total 850 / 970 150 / 150 Balance 850 / 970 150 / 150 Lab / Micro Data 12/05/24 04:55 12/05/24 04:55 Labs: Laboratory Results - last 24 hr 12/05/24 04:55: WBC 3.1 L, RBC 3.94 L, Hgb 13.2, Hct 38.2, MCV 97.0, MCH 33.5 H, MCHC 34.6, RDW Std Deviation 50.7 H, RDW Coeff of Sharad 14.3, Plt Count 87 L, MPV 12.1 H, Sodium 134, Potassium 4.0, Chloride 103, Carbon Dioxide 20.5 L, Anion Gap 11, BUN 24 H, Creatinine 1.13, Estim Creat Clear Calc 27.55 L, Est GFR (MDRD) Non-Af 47 L, BUN/Creatinine Ratio 21.1 H, Glucose 81, Calcium 8.3 Micro: Microbiology 12/01/24 10:25 Urine, Clean Catch Urine Culture - Final Presumptive E. coli Mixed Gram Positive Organisms Radiography Diagnostic Testing: Radiology Impression Carotid Duplex 12/03/24 10:45 Interpretation Summary Mild (<50%) stenosis right extracranial internal carotid. Mild (<50%) stenosis left extracranial internal carotid. Patent and antegrade vertebrals bilaterally. Ordering Physician: Marga Butcher Referring Physician: Ede Mao Performed By: Gianna Londono, BAHMAN, RVT Physical Exam Narrative GENERAL: cooperative HEENT: Atraumatic; normocephalic EYES; Anicteric, Normal Conjunctiva NECK; supple, normal thyroid, RESPIRATORY: Diminished to auscultation CARDIOVASCULAR: Regular S1 S2, GI: soft, normoactive bowel sounds, : No Renal angle tenderness; EXTREMITIES: No edema, no clubbing, MUSCULOSKELETAL: Significant deformities involving both hands from RA NEURO: Awake; no lateralizing signs. SKIN: No Rash PSYCH; Flat affect Assessment & Plan Assessment/Plan (1) Dizziness: (2) Fall: PLAN: Plan Patient is an 89-year-old lady admitted with dizziness and lightheadedness with fall at home 1. Giddiness ? Etiology not clear. Patient was thought to be orthostatic rehydrated with IV fluids but symptoms persisted also had her pacemaker checked and was found to be functioning as programmed. 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 An MRI has subsequently been ordered for further evaluation 2. 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 Status post pacemaker placement 3. Paroxysmal atrial fibrillation ? Rate controlled on systemic anticoagulation with apixaban 4. Chronic heart failure with reduced ejection fraction ? Last echo from 724 demonstrated EF of 35% patient remains on guideline directed medical therapy 5. Hypertension ? Blood pressure controlled, home medications continued with dose adjustment as needed 6. Hypothyroidism ? Patient is on levothyroxine home dose continued 7. History of breast cancer s/p mastectomy and chemotherapy ? Follows with oncology, last office visit in October. Currently under observation. No inpatient needs, continue outpatient follow-up. 8. RA ? Patient with history of longstanding RA. Has significant ulnar drift of her fingers consistent with RA and deformities. Continue outpatient injectables after discharge. 9. DVT prophylaxis ? Patient is on apixaban Time spent in the patient's overall evaluation,decision-making process, review of diagnostic data, adjustment of management, discussion with other providers, nursing nursing and ancillary staff involved in patient's care documentation, 36 Minutes Charges/Coding Visit Charges Inpatient E&M: 42333 Subs Hosp L2
[2024-12-05] MEDS: SACUBITRIL/VALSARTAN 24/26 MG TABLET 1 EACH PO (22:09)
[2024-12-06 04:00] VITALS: BP 103/48; PULSE 60; RESP 18; TEMP 36.3; O2SAT 97
[2024-12-06 06:04] LABS: Hematocrit 37.2 % (37-47); Hemoglobin 12.8 g/dL (12.0-15.0); Immature Granulocytes Count 0.020 X10^3/uL (0.0-0.0); Mean Corp Hgb Conc 34.4 g/dL (32-36); Mean Corpuscular Volume 97.6 fL (81-99); Mean Platelet Vol. 12.0 fl (6.2-12.0); NRBC Flagged by Analyzer 0 % (0-5); POSITIVE COUNT YES; Platelet Count 79 K/mm3 (150-450); RBC Distribution Width CV 14.2 % (11.6-14.6); RBC Distribution Width SD 51.0 fl (35.1-43.9); Red Blood Count 3.81 M/mm3 (4.2-5.4); White Blood Count 3.3 K/mm3 (4.4-11.0)
[2024-12-06 06:27] LABS: Magnesium 2.2 mg/dL (1.5-2.2)
[2024-12-06 06:28] LABS: Anion Gap 13 (5-15); BUN 28 mg/dL (4-19); BUN/Creat Ratio 24.9 RATIO (10-20); Calcium,Total 8.4 mg/dL (7.6-11.0); Carbon Dioxide 17.8 mmol/L (21.0-32.0); Chloride 104 mmol/L (98-108); Estimated Creatinine Clearance 27.31 ml/min (50-250); Glucose 83 mg/dL (70-99); Potassium 4.2 mmol/L (3.3-5.1)
--- NOTE | 2024-12-06 07:45 | PN.CARD_ITS ---
Subjective Subjective Patient seen and evaluated. Still sleeping. Objective Data Vital Signs: Vital Signs Temp Pulse Resp BP Pulse Ox O2 Del Method 97.3 F L 60 18 103/48 L 97 Room Air 12/06/24 04:00 12/06/24 04:00 12/06/24 04:00 12/06/24 04:00 12/06/24 04:00 12/06/24 04:00 Oxygen Delivery Method Room Air Weight: 111 lb 12.8 oz Body Mass Index (BMI) 18.6 Intake & Output: Intake and Output for Last 24 Hours 12/04/24 12/05/24 12/06/24 23:59 23:59 23:59 Intake Total 150 / 150 660 / 660 Balance 150 / 150 660 / 660 Lab / Micro Data 12/06/24 05:22 12/06/24 05:22 Labs: Laboratory Results - last 24 hr 12/06/24 05:22: WBC 3.3 L, RBC 3.81 L, Hgb 12.8, Hct 37.2, MCV 97.6, MCH 33.6 H, MCHC 34.4, RDW Std Deviation 51.0 H, RDW Coeff of Sharad 14.2, Plt Count 79 L, MPV 12.0, Immature Gran % (Auto) 0.600, Neut % (Auto) 50.3, Lymph % (Auto) 26.8, M wiley % (Auto) 19.0 H, Eos % (Auto) 2.7, Baso % (Auto) 0.6, Absolute Neuts (auto) 1.7 L, Absolute Lymphs (auto) 0.89, Nucleated RBC % 0, Sodium 135, Potassium 4.2, Chloride 104, Carbon Dioxide 17.8 L, Anion Gap 13, BUN 28 H, Creatinine 1.14, Estim Creat Clear Calc 27.31 L, Est GFR (MDRD) Non-Af 46 L, BUN/Creatinine Ratio 24.9 H, Glucose 83, Calcium 8.4, Phosphorus 3.9, Magnesium 2.2 Cardiology Labs/Tests 12/06/24 05:22: WBC 3.3 L, RBC 3.81 L, Hgb 12.8, Hct 37.2, MCV 97.6, MCH 33.6 H, MCHC 34.4, Plt Count 79 L, MPV 12.0, Immature Gran % (Auto) 0.600, Neut % (Auto) 50.3, Lymph % (Auto) 26.8, [place] % (Auto) 19.0 H, Eos % (Auto) 2.7, Baso % (Auto) 0.6, Absolute Neuts (auto) 1.7 L, Nucleated RBC % 0, Sodium 135, Potassium 4.2, Chloride 104, Carbon Dioxide 17.8 L, Anion Gap 13, BUN 28 H, Creatinine 1.14, E st GFR (MDRD) Non-Af 46 L, BUN/Creatinine Ratio 24.9 H, Glucose 83, Calcium 8.4, Phosphorus 3.9, Magnesium 2.2 Rhythm: EKG: ECHO: Stress Test: Cardiac Cath: PCI: CT Surgery: Holter monitor: EPS: PPM: CXR: Chest CT Scan: Radiography Diagnostic Testing: Radiology Impression Cervical Spine MRI 12/05/24 06:00 IMPRESSION: Multilevel degenerate changes without significant canal stenosis. Moderate right foramina stenosis at C4-C5. Right lung pleural effusion with airspace opacity, indeterminate. Please correlate with chest x-ray or CT chest. Reading Location: [facility] Physical Exam Const no apparent distress General Appearance: cooperative HEENT hearing grossly normal bilaterally Head and Scalp: atraumatic Eyes EOMs intact bilaterally Neck General: normal visual inspection Chest inspection of chest normal and palpation of chest normal Resp normal respiratory effort Auscultation: clear to auscultation bilaterally Cardio regular rate, regular rhythm, S1 normal heart sound and S2 normal heart sound Jugular Venous Distention: JVD GI normal to inspection, nondistended, normoactive bowel sounds Extremity normal capillary refill and no pedal edema Peripheral Pulses: Yes pulses 2+ throughout and femoral pulses present Skin no rashes or lesions noted Neuro oriented x3 and CN's II-XII intact bilaterally Psych Appearance: grossly normal and appropriate Assessment & Plan Assessment/Plan (1) Complete heart block: PLAN: s/p Pacemaker in place. (2) AF (paroxysmal atrial fibrillation): PLAN: - Patient with history of p. afib s/p cardioversion in the past, has been on metoprolol and amiodarone to maintain sinus rhythm. - Pacemaker interrogation showed increase episodes of atrial flutter/atrial fibrillation. - Pacemaker interrogation also showed under sensing that was adjusted yesterday after which the patient felt better. - This has been adjusted and amiodarone added and she is currently AV sequentially paced. (3) Congestive heart failure (CHF): QUALIFIERS: Heart failure type: systolic Heart failure chronicity: chronic Qualified Code(s): I50.22 - Chronic systolic (congestive) heart failure PLAN: - Patient has chronic cardiomyopathy likely ischemic given history of coronary disease with wall motion normalities noted on 2D echo that was done during this admission with a EF estimated to be 35% and wall motion normalities as listed above in the echo findings. - RV is dilated with preserved function, with findings suggestive of RV volume overload. - Continue metoprolol and uptitrate as tolerated, will hold off on Entresto and afterload reducing agents, monitor blood pressure until tachycardia is controlled and blood pressure is more stable. - Patient appears to be euvolemic no need for diuresis will continue to monitor. This can be followed up as an outpatient. (4) Non-rheumatic mitral regurgitation: PLAN: - Secondary mitral regurgitation with left atrial dilation likely secondary to underlying cardiomyopathy (5) History of coronary artery stent placement: PLAN: - CAD s/p PCI - Appears stable, no chest pain. - tpn mildly elevated. - Will continue aspirin to Eliquis 2.5 and will add Lipitor. (6) Hyperlipidemia: QUALIFIERS: Hyperlipidemia type: mixed hyperlipidemia Qualified Code(s): E78.2 - Mixed hyperlipidemia PLAN: - Will start statins. (7) Pacemaker: PLAN: Pacemaker interrogated today and is noted to be functioning well.
--- NOTE | 2024-12-06 08:21 | PCM.DC.SUM ---
Providers Date of Admission: 12/02/24 Date of Discharge: 12/06/24 Primary Care Physician: Dr. Ede Mao MD Consultations 12/02/24 17:23 Consult: Cardiology Routine Consulting Provider: Savi Patel Reason for Consult: presyncope, new wallmotion abn on echo EMERGENT Consult: No MD Notified: Yes Date Notified: 12/02/24 Time Notified: 17:31 Method of Notification: Verbal Reason For Visit: WEAKNESS AND DIZZINESS W/FALLS Diagnosis Discharge Diagnosis (1) Complete heart block: Status: Acute Code(s): I44.2 - Atrioventricular block, complete (2) AF (paroxysmal atrial fibrillation): Status: Chronic Code(s): I48.0 - Paroxysmal atrial fibrillation (3) Congestive heart failure (CHF): Status: Acute Code(s): I50.9 - Heart failure, unspecified Qualifiers: Heart failure chronicity: chronic Heart failure type: systolic Qualified Code(s): I50.22 - Chronic systolic (congestive) heart failure (4) Non-rheumatic mitral regurgitation: Status: Acute Code(s): I34.0 - Nonrheumatic mitral (valve) insufficiency (5) History of coronary artery stent placement: Status: Chronic Code(s): Z95.5 - Presence of coronary angioplasty implant and graft (6) Hyperlipidemia: Status: Acute Code(s): E78.5 - Hyperlipidemia, unspecified Qualifiers: Hyperlipidemia type: mixed hyperlipidemia Qualified Code(s): E78.2 - Mixed hyperlipidemia (7) Pacemaker: Status: Acute Code(s): Z95.0 - Presence of cardiac pacemaker Plan Patient is an 89-year-old lady admitted with dizziness and lightheadedness with fall at home 1. Giddiness ? Etiology not clear. Patient was thought to be orthostatic rehydrated with IV fluids but symptoms persisted also had her pacemaker checked and was found to be functioning as programmed. 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 An MRI has subsequently been ordered for further evaluation ? MRI did demonstrate Multilevel degenerate changes without significant canal stenosis.Moderate right foramina stenosis at C4-C5. Plan is for patient to follow-up with Dr. Lopez with spine surgery as 2. 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 Status post pacemaker placement 3. Paroxysmal atrial fibrillation ? Rate controlled on systemic anticoagulation with apixaban 4. Chronic heart failure with reduced ejection fraction ? Last echo from 724 demonstrated EF of 35% patient remains on guideline directed medical therapy ? Did reintroduce patient Entresto. Patient was apparently taking more Lasix because of bilateral lower extremity swelling. She was counseled on the need to stick to prescribed dosing 5. Hypertension ? Blood pressure controlled, home medications continued with dose adjustment as needed 6. Hypothyroidism ? Patient is on levothyroxine home dose continued 7. History of breast cancer s/p mastectomy and chemotherapy ? Follows with oncology, last office visit in October. Currently under observation. No inpatient needs, continue outpatient follow-up. 8. RA ? Patient with history of longstanding RA. Has significant ulnar drift of her fingers consistent with RA and deformities. Continue outpatient injectables after discharge. 9. DVT prophylaxis ? Patient is on apixaban Time spent in the patient's overall evaluation,decision-making process, review of diagnostic data, adjustment of management, discussion with other providers, nursing nursing and ancillary staff involved in patient's care documentation, 36 Minutes Medications at Discharge Home Medications levothyroxine 75 mcg tablet 100 mcg PO DAILY thyroid 04/06/23 calcium carbonate 1,000 mg PO DAILY@0800 PRN indigestion 04/07/23 dapagliflozin propanediol 10 mg tablet (Farxiga) 10 mg PO QAM heart #90 tabs 02/01/24 spironolactone 25 mg tablet 25 mg PO QAM heart #90 tabs 06/20/24 furosemide 40 mg tablet 40 mg PO QDAY #30 tabs 07/26/24 apixaban 2.5 mg tablet 2.5 mg PO BID blood thinner #180 tabs 09/12/24 mirtazapine 30 mg tablet 45 mg PO DAILY 09/12/24 sacubitril 24 mg-valsartan 26 mg tablet (Entresto) 1 tab PO BID heart #180 tabs 09/12/24 amiodarone 200 mg tablet 200 mg PO BIDCM #120 tabs 12/06/24 atorvastatin 20 mg tablet 20 mg PO QHS #60 tabs 12/06/24 metoprolol tartrate 25 mg tablet 25 mg PO BID #120 tabs 12/06/24 Physical Exam Narrative GENERAL: cooperative HEENT: Atraumatic; normocephalic EYES; Anicteric, Normal Conjunctiva NECK; supple, normal thyroid, RESPIRATORY: Diminished to auscultation CARDIOVASCULAR: Regular S1 S2, GI: soft, normoactive bowel sounds, : No Renal angle tenderness; EXTREMITIES: No edema, no clubbing, MUSCULOSKELETAL: Significant deformities involving both hands from RA NEURO: Awake; no lateralizing signs. SKIN: No Rash PSYCH; Flat affect Weight / BMI Weight Weight: 50.712 kg Body Mass Index (BMI) 18.6 ABG / Lab / Microbiology Data 12/06/24 05:22 12/06/24 05:22 Laboratory: Laboratory Results - last 24 hr 12/06/24 05:22: WBC 3.3 L, RBC 3.81 L, Hgb 12.8, Hct 37.2, MCV 97.6, MCH 33.6 H, MCHC 34.4, RDW Std Deviation 51.0 H, RDW Coeff of Sharad 14.2, Plt Count 79 L, MPV 12.0, Immature Gran % (Auto) 0.600, Neut % (Auto) 50.3, Lymph % (Auto) 26.8, [place] % (Auto) 19.0 H, Eos % (Auto) 2.7, Baso % (Auto) 0.6, Absolute Neuts (auto) 1.7 L, Absolute Lymphs (auto) 0.89, Nucleated RBC % 0, Sodium 135, Potassium 4.2, Chloride 104, Carbon Dioxide 17.8 L, Anion Gap 13, BUN 28 H, Creatinine 1.14, Estim Creat Clear Calc 27.31 L, Est GFR (MDRD) Non-Af 46 L, BUN/Creatinine Ratio 24.9 H, Glucose 83, Calcium 8.4, Phosphorus 3.9, Magnesium 2.2 Microbiology: Microbiology 12/01/24 10:25 Urine, Clean Catch Urine Culture - Final Presumptive E. coli Mixed Gram Positive Organisms Radiography Diagnostic Testing: Radiology Impression Cervical Spine MRI 12/05/24 06:00 IMPRESSION: Multilevel degenerate changes without significant canal stenosis. Moderate right foramina stenosis at C4-C5. Right lung pleural effusion with airspace opacity, indeterminate. Please correlate with chest x-ray or CT chest. Reading Location: [facility] D/C Instructions Discharge Activity: Return to Normal Activity Call your doctor if you observe: Fever of 101 or Higher, Shortness of breath, Fainting spells and Chest pain DC O2, CPAP, BIPAP Needs Home O2 Discharge instructions: No Meaningful Use Info Meaningful Use Meaningful Use Diagnoses (Choose all that apply): None applicable Discharge Plan Admission Admit Date/Time: 12/02/24 17:28 Attending Provider: Ajith Quiñones Primary Care Provider: Ede Mao Consulting Providers: Sean Thornton; Savi Patel; Marga Butcher Discharge Orders/Prescriptions Prescriptions: New atorvastatin 20 mg Tablet 20 mg PO QHS Qty: 60 0RF amiodarone 200 mg Tablet 200 mg PO BIDCM Qty: 120 0RF metoprolol tartrate 25 mg Tablet 25 mg PO BID Qty: 120 0RF Continued mirtazapine 30 mg tablet 45 mg PO DAILY apixaban 2.5 mg tablet 2.5 mg PO BID Qty: 180 3RF sacubitril-valsartan [Entresto] 24-26 mg tablet 1 tab PO BID Qty: 180 3RF calcium carbonate 200 mg calcium (500 mg) tablet,chewable 1,000 mg PO DAILY@0800 PRN (Reason: indigestion) levothyroxine 75 mcg tablet 100 mcg PO DAILY dapagliflozin propanediol [Farxiga] 10 mg tablet 10 mg PO QAM Qty: 90 3RF spironolactone 25 mg tablet 25 mg PO QAM Qty: 90 3RF furosemide 40 mg tablet 40 mg PO QDAY Qty: 30 11RF Discontinued metoprolol tartrate 50 mg tablet 50 mg PO BID Qty: 180 3RF amiodarone 200 mg tablet 200 mg PO DAILY Qty: 90 3RF Referrals / Follow Up: Teagan Hall MD [Med Staff - Head Loft Worker] - Emeterio Lopez MD [Med Staff - Active Staff] - Within 2 Weeks (Cervical DJD) Elias Arevalo MD [Med Staff - Active Staff] - Within 1 Month Ede Mao MD [Primary Care Provider] - Within 1 Week Disposition Disposition (needs filled in before D/C Order can be placed): Home, Self Care Charges/Coding Visit Charges Inpatient E&M: 95454 Disch Hosp >30min
[2024-12-06 09:00] VITALS: BP 98/54; PULSE 60; RESP 17; TEMP 36.5; O2SAT 98
[2024-12-06 09:06] VITALS: PULSE 60
[2024-12-06] MEDS: SACUBITRIL/VALSARTAN 24/26 MG TABLET 1 EACH PO (09:06)
[2024-12-06] MEDS: Ensure Plus High Protein 120 ML LIQUID PO (09:06)
[2024-12-06] MEDS: APIXABAN 2.5 MG TABLET (WCH) PO (09:06)
[2024-12-06] MEDS: Thiamine Hydrochloride 100 MG Tablet PO (09:07)
[2024-12-06] MEDS: Cholecalciferol (Vit D3) 125 MCG CAPSULE (5,000 UNITS) PO (09:07)
--- NOTE | 2024-12-06 10:06 | CASEMGMT ---
Patient has order for discharge. Patient to attend outpatient therapy. JUDE CORTEZ in to discuss needs at discharge. Patient denies needs or help at discharge. Patient wishes to go to [facility] to attend therapy. Patient had no further questions or concerns. JUDE CORTEZ received script for outpatient therapy and sent to [facility] with request to call patient to schedule appt. JUDE CORTEZ updated discharge plan. Script provided in discharge packet, copy placed in chart.
[2024-12-06 11:00] VITALS: BP 90/50
--- NOTE | 2024-12-06 11:25 | PHA.DC.MC.R ---
Pharmacy [facility] Counseling Pharmacy Service has performed discharge medication reconciliation and counseling for this patient. 1. ATORVASTATIN 20MG PO QHS 2. AMIODARONE CHANGED TO BID 3. METOPROLOL DECREASED TO 25MG The patient's discharge medication list was reviewed for discrepancies and discrepancies were resolved. The patient was counseled on the following discharge medications and changes in medications for homegoing were reviewed. The Reason for Use, instructions for use, and potential side effects were reviewed for all new medications. The patient's questions regarding all of their medications were answered. The patient was able to verbally demonstrate an understanding of their discharge medications. Medications at Discharge Home Medications levothyroxine 75 mcg tablet 100 mcg PO DAILY thyroid 04/06/23 calcium carbonate 1,000 mg PO DAILY@0800 PRN indigestion 04/07/23 dapagliflozin propanediol 10 mg tablet (Farxiga) 10 mg PO QAM heart #90 tabs 02/01/24 spironolactone 25 mg tablet 25 mg PO QAM heart #90 tabs 06/20/24 furosemide 40 mg tablet 40 mg PO QDAY #30 tabs 07/26/24 apixaban 2.5 mg tablet 2.5 mg PO BID blood thinner #180 tabs 09/12/24 mirtazapine 30 mg tablet 45 mg PO DAILY 09/12/24 sacubitril 24 mg-valsartan 26 mg tablet (Entresto) 1 tab PO BID heart #180 tabs 09/12/24 amiodarone 200 mg tablet 200 mg PO BIDCM #120 tabs 12/06/24 atorvastatin 20 mg tablet 20 mg PO QHS #60 tabs 12/06/24 metoprolol tartrate 25 mg tablet 25 mg PO BID #120 tabs 12/06/24
== END 2024-12-06 11:19 | disposition home or self-care (01) | DRG 149 ==
LOC: ED 15:04 → MS3 15:13 → PCU 12-04 06:56 → MS3 12-13 11:11 → PCU 12-13 11:12
PROVIDERS: Internal Medicine; Admitting Provider Hospitalist; Emergency Provider Emergency Medicine; PCP Family Medicine; Visit Provider Internal Medicine
DX: R42 Dizziness and giddiness (principal); I44.2 Atrioventricular block, complete; I48.92 Unspecified atrial flutter; I13.0 Hypertensive heart and chronic kidney disease with heart failure and stage 1 through stage 4 chronic kidney disease, or unspecified chronic kidney disease; I50.22 Chronic systolic (congestive) heart failure; E03.9 Hypothyroidism, unspecified; D64.9 Anemia, unspecified; S00.83XA Contusion of other part of head, initial encounter; N18.31 Chronic kidney disease, stage 3a; M06.9 Rheumatoid arthritis, unspecified; F32.A Depression, unspecified; I34.0 Nonrheumatic mitral (valve) insufficiency; E78.2 Mixed hyperlipidemia; I25.10 Atherosclerotic heart disease of native coronary artery without angina pectoris; I48.0 Paroxysmal atrial fibrillation; I25.2 Old myocardial infarction; I87.2 Venous insufficiency (chronic) (peripheral); W19.XXXA Unspecified fall, initial encounter; F41.9 Anxiety disorder, unspecified; I95.9 Hypotension, unspecified; I25.5 Ischemic cardiomyopathy; M48.02 Spinal stenosis, cervical region; M47.812 Spondylosis without myelopathy or radiculopathy, cervical region; Z95.1 Presence of aortocoronary bypass graft; Y92.009 Unspecified place in unspecified non-institutional (private) residence as the place of occurrence of the external cause; Z95.0 Presence of cardiac pacemaker; M85.80 Other specified disorders of bone density and structure, unspecified site; R20.2 Paresthesia of skin; I49.1 Atrial premature depolarization; R26.81 Unsteadiness on feet; Z79.01 Long term (current) use of anticoagulants; Z85.3 Personal history of malignant neoplasm of breast; Z90.11 Acquired absence of right breast and nipple; Z79.899 Other long term (current) drug therapy; Z79.890 Hormone replacement therapy; Z92.21 Personal history of antineoplastic chemotherapy
CPT/HCPCS: 36415; 70450; 71045; 72125; 72141; 80048; 80053; 81001; 82306; 82607; 83735; 84100; 84443; 84484; 85025; 85027; 87086; 87088; 93005; 93306; 93880; 94668; 97162; 97166; 97530; 97535; 97802; 97803; 99285; A4216

== ENCOUNTER → 2024-12-22 | Outpatient (CLI) | payer MEDICARE, SELFPAY ==
[2024-12-06 09:04] VITALS: BMI 19.4
[2024-12-22 15:18] LABS: Hematocrit 44.5 % (37-47); Hemoglobin 15.2 g/dL (12.0-15.0); Immature Granulocytes Count 0.010 X10^3/uL (0.0-0.0); Mean Corp Hgb Conc 34.2 g/dL (32-36); Mean Corpuscular Volume 99.1 fL (81-99); Mean Platelet Vol. 12.4 fl (6.2-12.0); NRBC Flagged by Analyzer 0 % (0-5); POSITIVE COUNT YES; Platelet Count 93 K/mm3 (150-450); RBC Distribution Width CV 14.4 % (11.6-14.6); RBC Distribution Width SD 52.5 fl (35.1-43.9); Red Blood Count 4.49 M/mm3 (4.2-5.4); White Blood Count 3.6 K/mm3 (4.4-11.0)
[2024-12-22 15:33] LABS: AST(SGOT) 28 U/L (<=31); Alanine Aminotransfer ALT/SGPT 32 U/L (<=34); Albumin, Serum 4.2 g/dL (3.4-4.8); Alkaline Phosphatase 43 U/L (35-104); Anion Gap 16 (5-15); BUN 27 mg/dL (4-19); BUN/Creat Ratio 19.1 RATIO (10-20); Calcium,Total 9.4 mg/dL (7.6-11.0); Carbon Dioxide 17.9 mmol/L (21.0-32.0); Chloride 100 mmol/L (98-108); Globulin 2.3 g/dL (2.2-4.2); Glucose 94 mg/dL (70-99); Potassium 4.1 mmol/L (3.3-5.1)
== END | disposition home or self-care (01) ==
LOC: MTLAB 11:32
PROVIDERS: PCP Family Medicine; Referring Provider Internal Medicine Rheumatology; Visit Provider Internal Medicine Rheumatology
DX: M05.70 Rheumatoid arthritis with rheumatoid factor of unspecified site without organ or systems involvement (principal); Z79.899 Other long term (current) drug therapy
CPT/HCPCS: 36415; 80053; 85025

== ENCOUNTER 2025-01-01 09:06 | Inpatient (IN) | payer MEDICARE, SELFPAY ==
[2024-12-06 09:04] VITALS: BMI 19.4
[2025-01-01] VITALS (7 sets, daily range): BP systolic 107–142; BP diastolic 69–80; PULSE 55–70; RESP 14–22; TEMP 36.3–36.8; O2SAT 94–100; BMI 21.2
--- NOTE | 2025-01-01 09:21 | EKG12_ITS ---
Test Reason : Blood Pressure : */* mmHG Vent. Rate : 60 BPM Atrial Rate : 60 BPM P-R Int : 222 ms QRS Dur : 160 ms QT Int : 548 ms P-R-T Axes : 22 139 -9 degrees QTcB Int : 548 ms AV dual-paced rhythm with prolonged AV conduction Abnormal ECG Confirmed by Moshe Argueta ([id number]), content editor NARDA HARRIS ([id number]) on 01/02/2025 10:58:32 AM Referred By: Confirmed By: Moshe Argueta
--- NOTE | 2025-01-01 09:21 | RAD_ITS ---
PROCEDURE: CHEST PA AND LATERAL 01/01/2025 REASON FOR EXAM: WEAKNESS TECHNIQUE: Procedure Code: RADCXR Modality: DX Procedure: CHEST PA AND LATERAL COMPARISON: November 30, 2024 FINDINGS: Hardware: Left-sided Port-A-Cath is in place. The tip is seen over the junction of the superior vena cava and right atrium. Dual lead pacemaker is in place with its lead tips overlying the right atrium and right ventricular apex. Heart: Enlarged Mediastinum: Aortic atherosclerosis. Lungs: Subsegmental atelectasis and small volume pleural fluid is shown in the right lung base. Left lung is clear. Bones: Degenerative changes are identified within the thoracic spine. RAD/Chest PA and Lateral IMPRESSION: Subsegmental atelectasis and small volume pleural fluid right lung base. Cardi ac enlargement. Reading Location: [id number]
--- NOTE | 2025-01-01 09:31 | EDS_ITS ---
HPI History of Present Illness Chief Complaint: Weakness Narrative Narrative: Chief complaint and HPI: 89-year-old female with past medical history of CAD status post PCI, HLD, HTN, COPD, hypothyroidism, pacemaker, proximal atrial fibrillation on Eliquis, CHF presents for evaluation of generalized weakness. Patient states yesterday she developed generalized weakness. She denies any fever, chills, shortness of breath, URI symptoms, chest pain, abdominal pain, nausea, vomiting, diarrhea, dysuria. Does endorse poor p.o. intake at baseline. Review of systems: See HPI Medications: As listed on the chart Allergies: As listed on the chart PFSH: Per chart Vital signs: As listed on the chart. Reviewed. Physical exam: Gen: A&O x3, NAD Head: Normocephalic, atraumatic Eyes: No sclera icterus, conjunctiva clear, PERRL ENT: Moist mucous membranes Neck: Trachea midline, No JVD CV: RRR, no murmurs, no peripheral edema, pacemaker without signs of cellulitis Resp: Lungs CTA BL, no w/r/c GI: Abd soft, non-distended, non-tender, no r/r/g Musc: Moves all extremities, no deformity Skin: Warm, dry Neuro: Alert, oriented, grossly intact, sensation intact Psych: Cooperative, appropriate mood and affect [facility] Medical History (Updated 01/01/25 @ 13:[address] Austin Marie MD) Hypotension Anxiety Depression Hypothyroidism Non-smoker Atrial fibrillation Congestive heart failure (CHF) Pacemaker Myocardial infarct Shingles Atrial tachycardia Presence of permanent cardiac pacemaker CKD (chronic kidney disease) stage 3, GFR 30-59 ml/min Non-rheumatic mitral regurgitation Mitral valve insufficiency Rheumatoid arthritis STEMI (ST elevation myocardial infarction) Atherosclerosis of coronary artery of [place] heart without angina pectoris History of coronary artery stent placement (04/12/20) Osteomyelitis of left lower extremity 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 Colonization status Contamination 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 Venous insufficiency (chronic) (peripheral) Delayed wound healing Other specified peripheral vascular diseases Non-pressure chronic ulcer of unspecified part of left lower leg with fat layer exposed Staph infection Left ankle swelling History of malignant neoplasm of right breast Fx cervical vert NOS-closed Fx clavicle Arthritis Malignant neoplasm of right female breast Osteopenia Home Medications ?Medication ?Instructions ?Recorded ?Last Taken ?Type calcium carbonate 1,000 mg PO DAILY@0800 PRN 1 06/08/22 11/29/24 History indigestion dapagliflozin propanediol 10 mg 10 mg PO QAM heart #90 tabs 02/01/24 12/31/24 Rx tablet (Farxiga) spironolactone 25 mg tablet 25 mg PO QAM heart #90 tab s 06/20/24 12/31/24 Rx apixaban 2.5 mg tablet 2.5 mg PO BID blood thinner #180 09/12/24 12/31/24 Rx tabs amiodarone 200 mg tablet 200 mg PO BID #180 tabs 12/0212/31/24 Rx furosemide 40 mg tablet 40 mg PO QDAY PRN edema 12/02 11/24 Unknown History levothyroxine 100 mcg tablet 100 mcg PO QDAY 12/27/24 12/30/24 History (Synthroid) metoprolol tartrate 25 mg tablet 25 mg PO BID #60 tabs 12/27/24 12/31/24 Rx tocilizumab-aazg 162 mg/0.9 mL 162 mg subcut Q7D 12/2712/18/24 History subcutaneous syringe ([place]) Allergy/AdvReac Type Severity Reaction Status Date / Time [id number] Reductase Allergy Other Verified 01/01/25 09:08 Inhibitor ticagrelor (From Brilinta) AdvReac Severe Severe Verified 01/01/25 09:08 dyspnea on exertion Family History Father Clotting disorder Heart disease Surgical History History of cardioversion (01/27/23) History of ankle surgery History of left heart catheterization (LHC) (~01/02/21) Presence of coronary angioplasty implant and graft (~04/12/20) History of arthroplasty of left ankle History of tubal ligation History of mastectomy Social History Smoking Status: Never smoker alcohol intake: never substance use type: does not use caffeine: Yes EXAM Physical Exam Const Vital Signs: 01/01/25 09:08 01/01/25 09:14 01/01/25 11:06 Temperature 97.4 F L Temperature Source Oral Pulse Rate 55 L 58 L Respiratory Rate 22 H 18 Respiratory Effort Normal Respiratory Pattern Normal Blood Pressure 118/69 110/78 Blood Pressure Mean 85 88 Pulse Ox 94 98 Oxygen Delivery Method Room Air Room Air MDM MDM MDM Narrative Medical decision making narrative: 89-year-old female with past medical history of CAD status post PCI, HLD, HTN, COPD, hypothyroidism, pacemaker, proximal atrial fibrillation on Eliquis, CHF presents for evaluation of generalized weakness. Denies associated symptoms other than baseline decreased p.o. intake. I reviewed the cardiology note from 12/27/2024. Patient was admitted to our hospital and October secondary to a fall. She underwent an echocardiogram that showed an EF of 35%. Her medications were changed she is on metoprolol 25 mg twice daily, Entresto, spironolactone, Farxiga. On presentation, patient no acute distress. She is bradycardic however she is on metoprolol. Differential diagnosis includes but is not limited to symptomatic bradycardia, pacemaker malfunction, arrhythmia, electrolyte abnormality, dehydration, UTI, pneumonia, ACS, thyroid disease. 500 cc NS bolus ordered. Weakness workup ordered. Will interrogate pacemaker. On chart review, patient has [place]. Pacemaker was unable to be interrogated by us given that it was in safety mode. Do worker will come in to irrigate the pacemaker. CBC without leukocytosis. Patient has hemoconcentration of 16.6. Has a history of this in the past. Baseline thrombocytopenia of 64. INR 3.3. Patient on anticoagulation. CMP consistent with dehydration and ASHLI. Creatinine 2.15. On 12/2019 creatinine was 1.39. Prior to that creatinine normal. Patient receiving NS bolus. Magnesium mildly elevated at 2.5. Patient has transaminitis and hyperbilirubinemia of 2.39, AST 245, ALT of 278. Patient not endorsing any abdominal pain. However will obtain ultrasound. Troponin 49. Previous troponin on 12/2041. Suspect this is her baseline. Not endorsing any chest pain. BNP elevated at 30,896. Patient not overtly fluid overloaded on physical exam. Her BNP in July was 16,925. Lipase unremarkable. TSH unremarkable. Free T4 high at 2.50. Patient on Synthroid. UA negative for UTI. Pacemaker was interrogated by Do field representatives director. States that the atrial lead is not working correctly. States that it is not sensing well. And that the capture is high. He adjusted the pulse amplitude and pulse width. Chest x-ray shows correct lead placement with the pacemaker. Chest x-ray was personally reviewed and interpreted by me, ED physician. Cardiomegaly with small bilateral pleural effusions. No pneumonia. Radiology in agreement. Dr. Marie. With cardiology was consulted and patient was discussed. He evaluated the patient. No need to transfer from a pacemaker standpoint. Agrees with admission. CT abdomen pelvis shows nonspecific gallbladder wall thickening. Question lobulated hepatic contours may be seen in chronic liver disease. Small volume nonspecific perihepatic free fluid. I suspect her transaminitis is secondary to her CHF. Patient and family member updated of all the results. Patient will warrant admission. Patient accepted to the hospitalist service. EKG: Interpreted by me/EM physician: EKG shows AV dual paced rhythm with prolonged AV conduction. Heart rate 60. Impression: 1. Pacemaker atrial lead dysfunction 2. ASHLI 3. Transaminitis 4. CHF Lab Data Labs: Laboratory Results - last 24 hr 01/01/25 01/01/25 01/01/25 09:38 09:46 10:21 WBC 10.7 RBC 4.86 Hgb 16.6 H Hct 48.5 H MCV 99.8 H MCH 34.2 H MCHC 34.2 RDW Std Deviation 56.5 H RDW Coeff of Sharad 15.8 H Plt Count 64 L MPV 12.7 H Immature Gran % (Auto) 0.500 Neut % (Auto) 79.6 H Lymph % (Auto) 9.9 L [place] % (Auto) 9.7 Eos % (Auto) 0.2 Baso % (Auto) 0.1 Absolute Neuts (auto) 8.5 H Absolute Lymphs (auto) 1.06 Nucleated RBC % 0 PT Cancelled Cancelled INR Cancelled Cancelled APTT Cancelled Cancelled Sodium Cancelled Potassium Cancelled Chloride Cancelled Carbon Dioxide Cancelled Anion Gap Cancelled BUN Cancelled Creatinine Cancelled Estim Creat Clear Calc Cancelled Est GFR (MDRD) Non-Af Cancelled BUN/Creatinine Ratio Cancelled Glucose Cancelled Calcium Cancelled Magnesium Cancelled Total Bilirubin Cancelled AST Cancelled ALT Cancelled Alkaline Phosphatase Cancelled Total Creatine Kinase Troponin T High Sens Cancelled Troponin T Hi Sens 2 Hr NT pro BNP II Cancelled Total Protein Cancelled Albumin Cancelled Globulin Cancelled Albumin/Globulin Ratio Cancelled Lipase TSH Cancelled Free T4 Cancelled Urine Color Yellow Urine Clarity Sl. Cloudy Urine pH 5.0 Ur Specific [place] 1.020 Urine Protein 100 H Urine Glucose (UA) 250 H Urine Ketones Negative Urine Occult Blood 10 H Urine Nitrite Negative Urine Bilirubin Negative Urine Urobilinogen 1 H Ur Leukocyte Esterase Negative Urine RBC 0-5 SEEN Urine WBC 0-5 SEEN Ur Squamous Epith Cells 0-5 SEEN Urine Bacteria RARE Hyaline Casts 0-5 SEEN Urine Mucus 1+ 01/01/25 01/01/25 10:45 13:33 WBC RBC Hgb Hct MCV MCH MCHC RDW Std Deviation RDW Coeff of Sharad Plt Count MPV Immature Gran % (Auto) Neut % (Auto) Lymph % (Auto) [place] % (Auto) Eos % (Auto) Baso % (Auto) Absolute Neuts (auto) Absolute Lymphs (auto) Nucleated RBC % PT 34.4 H INR 3.3 APTT 30.4 Sodium 132 L Potassium 5.0 Chloride 101 Carbon Dioxide 13.9 L Anion Gap 16 H BUN 74 H Creatinine 2.15 H Estim Creat Clear Calc 16.28 L Est GFR (MDRD) Non-Af 22 L BUN/Creatinine Ratio 34.5 H Glucose 81 Calcium 9.0 Magnesium 2.5 H Total Bilirubin 2.39 H AST 245 H ALT 278 H Alkaline Phosphatase 82 Total Creatine Kinase 122 Troponin T High Sens 49 H D Troponin T Hi Sens 2 [place] [address] H Total Protein 6.3 Albumin 4.1 Globulin 2.1 L Albumin/Globulin Ratio 1.9 Lipase 44 TSH 0.987 Free T4 2.50 H Urine Color Urine Clarity Urine pH Ur Specific [place] Urine Protein Urine Glucose (UA) Urine Ketones Urine Occult Blood Urine Nitrite Urine Bilirubin Urine Urobilinogen Ur Leukocyte Esterase Urine RBC Urine WBC Ur Squamous Epith Cells Urine Bacteria Hyaline Casts Urine Mucus Radiography Diagnostic Testing: Clinical Impression(s) from Imaging Studies Chest X-Ray 01/01/25 09:21 IMPRESSION: Subsegmental atelectasis and small volume pleural fluid right lung base. Cardiac enlargement. Reading Location: [facility] Abdomen Ultrasound 01/01/25 11:47 IMPRESSION: 1. Nonspecific gallbladder wall thickening without visualized cholelithiasis or positive reported sonographic Romero's sign to confirm acute cholecystitis, although this should be confirmed by clinician ex am. In addition to acute/chronic cholecystitis, gallbladder wall thickening can also be seen in the setting of 3rd spacing, venous congestion, or may be reactive to a primarily hepatic process amongst other etiologies. Correlate with presentation/exam and if there is clinical ambiguity, consider HIDA. 2. Question lobulated hepatic contours as may be seen in chronic liver disease. Correlate with clinical and laboratory evaluation. 3. At least trace to small volume nonspecific perihepatic free fluid. Trace pericholecystic fluid may be a related finding. 4. Additional description as above. Reading Location: [facility] Discharge Plan Triage Chief Complaint: Weakness ED Provider: Bernardo Yusuf Dx/Rx/DC Orders Prescriptions: No Action apixaban 2.5 mg tablet 2.5 mg PO BID Qty: 180 3RF levothyroxine [Synthroid] 100 mcg tablet 100 mcg PO QDAY furosemide 40 mg tablet 40 mg PO QDAY PRN (Reason: edema) [place] 162 mg/0.9 mL syringe 162 mg subcut Q7D Patient Comments: [NO ORIGINAL SIG] amiodarone 200 mg tablet 200 mg PO BID Qty: 180 3RF metoprolol tartrate 25 mg tablet 25 mg PO BID Qty: 60 0RF calcium carbonate 200 mg calcium (500 mg) tablet,chewable 1,000 mg PO DAILY@0800 PRN (Reason: indigestion) dapagliflozin propanediol [Farxiga] 10 mg tablet 10 mg PO QAM Qty: 90 3RF spironolactone 25 mg tablet 25 mg PO QAM Qty: 90 3RF Primary Care Provider: Macie Oleary Referrals: Macie Oleary MD [Primary Care Provider] - Print Language: Latvian
[2025-01-01] MEDS: 0.9% Normal Saline (500mL Bag) 500 ML 1000 ML IV (09:49)
[2025-01-01 09:50] LABS: Hematocrit 48.5 % (37-47); Hemoglobin 16.6 g/dL (12.0-15.0); Immature Granulocytes Count 0.050 X10^3/uL (0.0-0.0); Mean Corp Hgb Conc 34.2 g/dL (32-36); Mean Corpuscular Volume 99.8 fL (81-99); Mean Platelet Vol. 12.7 fl (6.2-12.0); NRBC Flagged by Analyzer 0 % (0-5); POSITIVE COUNT YES; Platelet Count 64 K/mm3 (150-450); RBC Distribution Width CV 15.8 % (11.6-14.6); RBC Distribution Width SD 56.5 fl (35.1-43.9); Red Blood Count 4.86 M/mm3 (4.2-5.4); White Blood Count 10.7 K/mm3 (4.4-11.0)
[2025-01-01 09:57] LABS: Color, Urine Yellow (Yellow); Glucose, Dipstick 250 mg/dl (Normal); Ketone-Dipstick Negative (Negative); Leukocyte Esterase-Dipstick Negative /ul (Negative); Nitrite-Dipstick Negative (Negative); Occult Blood-Urine 10 /ul (Negative); Protein-Dipstick 100 mg/dl (Negative); Specific Gravity, Urine 1.020 (1.002-1.030); Urine Bilirubin Dipstick Negative (Negative)
[2025-01-01 10:07] LABS: Mucous, Urine 1+ /hpf (<or=2+); Red Blood Cells-Urine 0-5 SEEN /hpf (0-5); Squamous Epithelial Cells - UA 0-5 SEEN /hpf (5-10)
--- OUTSIDE RECORDS SUMMARY | 2025-01-01 10:16 | XMS RPT_ITS | CCD ---
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 Matteo Jonas Attending Provider [phone] [facility] MAINTENANCE TEAM LEADER, MAINTENANCE TEAM LEADER-Stephany Mchugh Attending Provider Dr. Teagan Hall Primary Care Provider Dr. Teagan Hall Referring Provider Dr. Teagan Hall Primary Care Provider Dr. Teagan Hall Referring Provider Dr. Jimenez Shane Attending Provider Dr. Jimenez Shane Referring Provider Dr. Jimenez Shane Other Provider Dr. Michael Wright Attending Provider [phone] Teagan Hall Primary Care Provider Dr. Teagan Hall Referring Provider Dr. Jimenez Shane Attending Provider [phone] Dr. Jimenez Shane Referring Provider [phone] Acosta, Dr. Rankin Other Provider [phone] Michael Wright Attending Provider [phone] Rafael, Teagan Ellis Primary Care Provider MARCUS MELLO Referring Unavailabl e JODOLORESIFF, TEAGAN RHONDA Primary Care Unavailable MARCUS MELLO Referring Unavailabl e JODOLORESIFF, TEAGAN RHONDA Primary Care Unavailable Rafael, Teagan Rhonda Primary Care Provider Dr. Teagan Hall Primary Care Provider Dr. Jimeenz Shane Attending Provider [phone] Dr. Teagan Hall Referring Provider Dr. Matteo Jonas Attending Provider Dr. Teagan Hall Primary Care Provider Dr. Jimenez Shane Referring Provider Dr. Teagan Hall Primary Care Provider Holli Morillo Attending Provider Unavailable Dr. Jimenez Shane Attending Provider [phone] Dr. Teagan Hall Primary Care Provider Dr. Teagan Hall Referring Provider Dr. Matteo Jonas Attending Provider Holli Morillo Attending Provider Unavailable Dr. Jimenez Shane Attending Provider Dr. Teagan Hall Primary Care Provider Dr. Teagan Hall Referring Provider Dr. Mattoe Jonas Attending Provider MARCUS MELLO Attending Unavailabl e JOLLIFF, TEAGAN RHONDA Primary Care Unavailable MARCUS MELLO Referring Unavailabl e JOLLIFF, TEAGAN RHONDA Primary Care Unavailable MARCUS MELLO Attending Unavailabl e MARCUS MELLO Referring Unavailabl e JOLLIFF, TEAGAN RHONDA Primary Care Unavailable MARCUS MELLO Attending Unavailabl e JOLLIFF, TEAGAN RHONDA Primary Care Unavailable MARCUS MELLO Attending Unavailabl e JOLLIFF, TEAGAN RHONDA Primary Care Unavailable MARCUS MELLO Attending Unavailabl e JOLLIFF, TEAGAN RHONDA Primary Care Unavailable JOLLIFF, TEAGAN RHONDA Primary Care Unavailable AMY GREENWOOD Admitting Unavailable LINDA ROGERS Attending Unavailable MARCUS MELLO Admitting Unavailabl e MARCUS MELLO Attending Unavailabl e MARCUS MELLO Referring Unavailabl e JOLLIFF, TEAGAN RHONDA Primary Care Unavailable MARCUS MELLO Attending Unavailabl e JOLLIFF, TEAGAN RHONDA Primary Care Unavailable MARCUS MELLO Attending Unavailabl e JOLLIFF, TEAGAN RHONDA Primary Care Unavailable Teagan Hall Primary Care [...] Provider Dr. Aden Marquez Attending Provider Roof MAINTENANCE TEAM LEADER, MAINTENANCE TEAM LEADER-Stephany Mchugh Attending Provider Dr. Teagan Hall Primary [...] Provider Dr. Aden Marquez Attending Provider Roof MAINTENANCE TEAM LEADER, MAINTENANCE TEAM LEADER-Stephany Mchugh Attending Provider WISAM Magallon Referring Provider WAYNE Juarez Attending Provider Dr. Seth Garcia Emergency Provider Dr. Matteo Anderson Admit Provider Dr. Matteo Anderson Attending Provider Dr. Matteo Anderson Other Provider Dr. Jesi Dunham Other Provider Dr. Michael Sinclair Other Provider Dr. Teagan Hall S Primary Care Provider Dr. Henrry Cano Emergency [...] Provider Dr. Aden Marquez Attending Provider Bry MAINTENANCE TEAM LEADER, WAYNE Mchugh Attending Provider WISAM Magallon Referring [...] Provider Dr. Aden Marquez Attending Provider Roof MAINTENANCE TEAM LEADER, MAINTENANCE TEAM LEADER-C Sharad Mchugh Attending Provider WISAM Magallon Attending Provider WISAM Magallon Referring Provider MARLENE Jaurez-Stephany Lerner Attending Provider Dr. Seth Garcia Emergency Provider Dr. Matteo Anderson Provider Dr. Matteo Anderson Attending Provider Dr. Matteo Anderson Other Provider Dr. Jesi Dunham Other Provider Dr. Michael Sinclair Attending Provider Dr. Michael Sinclair Other Provider Iza Pagan Attending Provider Unavailable Trinity MAINTENANCE TEAM LEADER, MAINTENANCE TEAM LEADER-C Mariely Attending Provider Dr. Jesi Dunham Attending Provider Trinity MAINTENANCE TEAM LEADER, MAINTENANCE TEAM LEADER-C Mariely Referring Provider Trinity MAINTENANCE TEAM LEADER, MAINTENANCE TEAM LEADER-C Mariely Other Provider Dr. Ash Loving Attending [...] Referring Provider WISAM Magallon Attending Provider Trinity MAINTENANCE TEAM LEADER, MAINTENANCE TEAM LEADER-C Mariely Attending Provider Dr. Jesi Dunham Attending Provider Trinity MAINTENANCE TEAM LEADER, MAINTENANCE TEAM LEADER-C Mariely Referring Provider Trinity MAINTENANCE TEAM LEADER, MAINTENANCE TEAM LEADER-C Mariely Other Provider Dr. Ash Loving Attending Provider Dr. Aden Marquez Attending Provider Dr. Matteo Jonas Attending Provider JOLLIFF, TEAGAN Primary Care Unavailable LEENA-ADALID, PATITO Attending Unava ilable JOLLIFF, TEAGAN Primary Care Unavailable LEENA-ADALID, PATITO Attending Unava ilable JOLLIFF, TEAGAN Primary Care Unavailable LEENA-ADALID, PATITO Referring Unava ilable LEENA-ADALID, PATITO Attending Unava ilable LEENA-ADALID, PATITO Admitting Unava ilable LEENA-ADALID, PATITO Referring Unava ilable JOLLIFF, TEAGAN Primary Care Unavailable LEENA-ADALID, PATITO Attending Unava ilable MATTEO JONAS. Referring Unavailable JOLLIFF, TEAGAN Primary Care Unavailable TEVIN VIDAL Attending Unavailable JOLLIFF, TEAGAN Primary Care Unavailable LEENA-ADALID, PATITO Attending Unava ilable Dr. Teagan Hall Primary [...] Fior LOPES, Dr. Almaguer Referring Provider Roof MAINTENANCE TEAM LEADER-C, Sharad H Other Provider Holli Magallon Referring Provider Kenneth LOPES, Dr. Ny Emergency Provider Kenneth LOPES, Dr. Ny Attending Provider Roof MAINTENANCE TEAM LEADER-C, Sharad H Attending Provider Roof MAINTENANCE TEAM LEADER-C, Sharad H Referring Provider Rafael LOPES, Dr. Teagan Franks Primary Care Provider Irina LOPES, Dr. Griffin Attending Provider Irina LOPES, Dr. Griffin Referring Provider Holli Magallon Attending Provider Rafael LOPES, Dr. Teagan Franks Referring Provider Rafael LOPES, Dr. Teagan Franks Primary Care Provider Ponce LOPES, Dr. Stern Attending Provider Ponce LOPES, Dr. Stern Referring Provider Rafael LOPES, Dr. Teagan Franks Primary Care Provider Fior LOPES, Dr. Almaguer Attending Provider Fior LOPES, Dr. Almaguer Referring Provider Pritesh LOPES, Dr. Felipe Attending Provider Pritesh LOPES, Dr. Felipe Referring Provider Ponce LOPES, Dr. Stern Other Provider Rafael LOPES, Dr. Teagan Franks Primary Care Provider Irina LOPES, Dr. Griffin Attending Provider Irina LOPES, Dr. Griffin Referring Provider Jaya LOPES, Nikos Emergency Provider Daylin LOPES, Dr. Mera Primary Care Provider Hillary TAVARES, Dr. Estrada Admit Provider Hillary TAVARES, Dr. Estrada Attending Provider Hillary TAVARES, Dr. Estrada Other Provider Hadley LOPES, Dr. Gresham Attending Provider Hadley LOPES, Dr. Gresham Other Provider Amanda LOPES, Dr. Hou Other Provider Adriana LOPES, Dr. Rodriguez Attending Provider Daylin LOPES, Dr. Mera Referring Provider Iza Pagan Attending Provider Unavailable Ishmael LOPES, Dr. Canseco Attending Provider Unavailyann Quiñones MD, Dr. Canseco Other Provider Unavailable Ronn LOPES, Joselyn Attending Provider Hadley LOPES, Dr. Gresham Referring Provider Amanda LOPES, Dr. Hou Other Provider [phone] Ishmael LOPES, Dr. Canseco Attending Provider Unavaila patricia JOEL, Shaila Attending Provider Rafael LOPES, Dr. Teagan Franks Primary Care Provider Rafael LOPES, Dr. Teagan Franks Referring Provider Irina LOPES, Dr. Griffin Attending Provider Ponce LOPES, Dr. Stern Attending Provider Ponce LOPES, Dr. Stern Referring Provider Pritesh LOPES, Dr. Felipe Attending Provider Pritesh LOPES, Dr. Felipe Referring Provider Ponce LOPES, Dr. Stern Other Provider Irina LOPES, Dr. Griffin Referring Provider Jaya LOPES, Nikos Emergency Provider [phone] Daylin LOPES, Dr. Mera Primary Care Provider Hillary TAVARES, Dr. Estrada Admit Provider Hillary TAVARES, Dr. Estrada Attending Provider Hillary TAVARES, Dr. Estrada Other Provider Hadley LOPES, Dr. Gresham Attending Provider Hadley LOPES, Dr. Gresham Other Provider Ronn LOPES, [facility] Attending Provider Hadley LOPES, Dr. Gresham Referring Provider Amanda LOPES, Dr. Hou Other Provider Ishmael LOPES, Dr. Canseco Attending Provider Unavaila patricia Wright MD, Dr. Rodriguez Attending Provider Daylin LOPES, Dr. Mera Referring Provider Iza Pagan Attending Provider Unavailable Ishmael LOPES, Dr. Canseco Other Provider Unavailable Shaila Valladares Attending Provider Anirudh LOPES, Macie Primary Care Provider Holli Magallon Attending Provider Macie Oleary Primary Care Unavailable Vellanki, Leena Attending Unavailable Vellanki, Leena Referring Unavailable Miedel, Absaraka Attending Unavailable Miedel, Absaraka Referring Unavailable Roof MAINTENANCE TEAM LEADER, Sharad Mchugh Consulting Unavailable Jolliff, Teagan S Primary Care Unavailable Miedel, Absaraka Consulting Unavailable Vellanki, Leena Attending Unavailable Vellanki, Leena Referring Unavailable Jolliff, Teagan S Primary Care Unavailable Linda Mao Referring Unavailable Macie Oleary Primary Care Unavailable Holli Magallon Attending Unavail able Jolliff, Teagan S Primary Care Unavailable Holli Magallon Attending Unavail able Holli Magallon Referring Unavail able Roof MAINTENANCE TEAM LEADER, Sharad H Attending Unavailable Roof MAINTENANCE TEAM LEADER, Sharad H Referring Unavailable Jolliff, Teagan S Primary Care Unavailable Jolliff, Teagan S Primary Care Unavailable Holli Magallon Referring Unavail able Holli Magallon Attending Unavail able Mostmelany Sean Admitting Unavailable Mostmelany, Sean Consulting Unavailable [facility] Primary Care Unavailable Ajith Quiñones Attending Unavailable Mostafa, Savi Consulting Unavailable Butcher, Marga Consulting Unavailable Anant Cooper Attending Unavailable Jolliff, Teagan S Primary Care Unavailable [facility] Primary Care Unavailable IrinaAlan akhtarl Attending [facility]available [facility] Referring Unavailable [facility] Primary Care Unavailable Shaila Alexander Attending Unavailable Jolliff, Teagan S Referring Unavailable Jolliff, Teagan S Primary Care Unavailable Matteo Jonas Attending Unavailable Jolliff, Teagan S Primary Care Unavailable Irina, Chazy Referring Unavailable Irina, Elias Attending Unavailable Hillary Sean Attending Unavailable Mosteller, Sean Admitting Unavailable Mosteller, Sean Consulting [facility] Unavailable Mosteller, Sean Consulting Unavailable Mosteller, Sean Admitting Unavailable [facility] Primary Care Unavailable Irina, Chazy Attending Unavailable Pachecoa, Savi Consulting Unavailable Hadley, Marga Consulting Unavailable Ajith Quiñones Consulting Unavailable Ajith Quiñones Attending Unavailable Bibianalanandrew, Leena Consulting Unavailable Candelaria JOEL, Holli Singleton Attending Unavail able Holli Magallon Referring Unavail able Jolliff, Teagan S Primary Care Unavailable Bibianalanandrew, Leena Attending Unavailable Vellanki, Leena Referring Unavailable Jolliff, Teagan S Primary Care Unavailable Marga Butcher Attending Unavailable Marga Butcher Consulting Unavailable Tripp Childress Attending Unavailable AlyssaelTripp Referring Unavailable Jolliff, Teagan S Primary Care Unavailable Vellanki, Leena Consulting Unavailable Jolliff, Teagan S Primary Care Unavailable Matteo Jonas Attending Unavailable Matteo Jonas Referring Unavailable MostellerSean Attending Unavailable Jolliff, Teagan S Referring Unavailable Holli Magallon Attending Unavail able Jolliff, Teagan S Primary Care Unavailable [facility] Referring Unavailable [facility] Primary Care Unavailable Iza Pagan Attending Unavailable [facility] Primary Care Unavailable Irina, Elias Attending Unavailable Irina, Elias Attending Unavailable Irina, Chazy Referring Unavailable Jolliff, Teagan S Primary Care Unavailable Jolliff, Teagan S Referring Unavailable Jolliff, Teagan S Primary Care Unavailable Irina, Elias Attending Unavailable Rafael Teagan S Primary Care Unavailable Irina, Chazy Referring Unavailable Irina, Elias Attending Unavailable Haileedoloresmichelle, Teagan S Primary Care Unavailable Rafael, Teagan S Referring Unavailable Holli Magallon Attending Unavail able Haileejose j, Teagan S Primary Care Unavailable Irina, Elias Referring Unavailable Irina, Elias Attending Unavailable Marga Butcher Referring Unavailable [facility] Unavailable Joselyn Brody Attending Unavailable Marga Butcher Referring Unavailable Michael Wright Attending Unavailable [facility]o [facility] Unavailable Marga Butcher Attending Unavailable Allergies Allergy Classification Reported Allergen(s) Allergy Type Date of Onset Reaction(s) Facility (20 sources) Ticagrelor; Translations: [TICAGRELOR] Drug Allergy 1 Other: See Comments [facility] (8 sources) Ticagrelor Allergy to substance 1 Other [facility] (1 source) Ticagrelor Drug Allergy 5 [facility] Repository Medications Current Medications Medication Drug Class(es) Dates Sig (Normalized) Sig (Original) azithromycin 250 mg oral tablet (2 sources) Macrolide Antimicrobial Start: 12-27-2024 calcium carbonate 500 mg chewable tablet (20 sources) Start: 10-26-2018 End: 04-07-2023 Start: 10-26-2018 End: 04-07-2023 take 2 tablets by mouth once daily Calcium Carbonate 500 MG tablet Discontinued 1000 mg PO DAILY@0800 October 26, 2018 12:00am April 07, 2023 2:11pm indigestion CALCIUM CARBONAT E (CALCIUM 600 ORAL) Take by mouth twice daily. 0 Active Comment on above: Take by mouth twice daily. dapagliflozin 10 mg oral tab let (18 sources) Sodium-Glucose Cotransporter 2 Inhibitor Start: 02-01-2024 levothyroxine sodium 0.1 mg oral tablet (20 sources) l-Thyroxine Start: 12-27-2024 Start: 12-12-2021 End: 12-27-2024 Start: 12-12-2021 End: 04-06-2023 Levothyroxine 75 mcg tablet Active 100 ug PO DAILY April 06, 2023 12:25pm thyroid Start: 12-12-2021 End: 04-06-2023 take 1 tablet by mouth once daily Levothyroxine 75 mcg Tablet Discontinued 75 ug PO DAILY December 12, 2021 12:00am April 06, 2023 12:26pm thyroid Comment on above: Take by mouth. Take by mouth once d aily. methotrexate 2.5 mg oral tablet (20 sources) Folate Analog Metabolic Inhibitor Start: 08-19-2022 methotrexate 2.5 MG tablet Start: 12-13-2019 End: 07-16-2023 Start: 12-13-2019 End: 05-23-2020 Methotrexate Sodium 2.5 MG t ablet Discontinued 100 mg PO BRENNER December 13, 2019 12:00am May 23, 2020 4:13pm arthritis on Sundays Start: 12-13-2019 End: 07-16-2023 Methotrexate Sodium Disconti nued 15 MG PO BRENNER May 23, 2020 4:12pm July 16, 2023 10:17am on Sundays Start: 12-13-2019 End: 05-23-2020 Methotrexate Sodium Disconti nued 100 MG PO BRENNER December 13, 2019 12:00am May 23, 2020 4:13pm on Sundays Start: 10-26-2018 End: 10-28-2018 Start: 10-26-2018 End: 10-28-2018 take 15 mg [...] once daily. Take 6 tablets by mo uth every Wednesday. Tiotropium-Olodaterol (20 sources) Anticholinergic, beta2-Adrenergic Agonist Start: 12-09-2020 Tiotropium-Olodaterol (Stiolto Respimat) 2.5-2.5 mcg/actuation mist Active 2 INH INHALATION DAILY December 09, 2020 11:04am Start: 12-09-2020 End: 12-24-2021 Tiotropium-Olodaterol (Stiol to Respimat) 2.5-2.5 mcg/actuation mist Discontinued 2 NMA INHALATION DAILY 4 2 December 09, 2020 12:00am December 24, 2021 1:38pm Start: 12-09-2020 End: 12-24-2021 Tiotropium-Olodaterol (Stiol to [...] DAILY 4 December 09, 2020 12:00am sacubitril / valsartan (20 sources) Angiotensin 2 Receptor Kemal Start: 09-12-2024 Sacubitril-Valsartan (Entresto) 24-26 mg tablet Active 1 {tbl} PO TWICE A DAY 180 3 September 12, 2024 11:19am heart Start: 01-21-2024 End: 09-12-2024 Start: 01-21-2024 End: 09-12-2024 Sacubitril-Valsartan (Entres to) 24-26 mg tablet Discontinued 1 {tbl} PO TWICE A DAY 180 3 January 21, 2024 12:00am September 12, 2024 11:19am Tocilizumab-Aazg (2 sources) Start: 12-27-2024 (12 sources) Start: 12-27-2024 Start: 09-12-2024 Start: 02-07-2013 End: 04-22-2020 Completed/Discontinued Medications Medication Drug Class(es) Dates Sig (Normalized) Sig (Original) 0.4 ml abatacept 125 mg/ml prefilled syringe (20 sources) Selective T Cell Costimulation Modulator Start: 12-13-2019 End: 09-12-2024 Start: 12-13-2019 take 750 mg intraven ously every month Abatacept Active 750 MG IV EVERY MONTH December 13, 2019 12:00am every 4 weeks Start: 02-07-2013 End: 10-28-2018 abatacept (Orenc ia) 250 MG injection Infuse 750 mg into a venous catheter every 28 (twenty-eight) days. 0 Active ABATACEPT/MALTOSE (ORENCIA INTRAVEN.) (10 sources) ABATACEPT/LORNE E (ORENCIA INTRAVEN.) Inject intravenously q 4 WEEKS. 0 Active Comment on above: Inject intravenously q 4 WEEKS. acetaminophen 500 mg oral tablet (20 sources) Start: 0 End: 5 Start: 04-12-2020 take 1000 mg by mout [...] hours as needed for Pain or Fever. acetaminophen 300 mg / codei ne phosphate 30 mg oral tablet (20 sources) Opioid Agonist Start: 10-28-2018 End: 11-01-2018 Start: 10-28-2018 End: 11-01-2018 Acetaminophen-Codeine 1 TABL ET tablet Discontinued 1 - 2 {tbl} PO EVERY 6 HOURS NEEDED as needed for Pain 30 4 0 October 28, 2018 12:00am October 31, 2018 [...] Histamine-1 Receptor Antagonist Start: 06-26-2015 End: 10-28-2018 Start: 06-26-2015 End: 10-28-2018 take 1 tablet by mouth at bedtime Diphenhydramine-Acetaminophen (Tylenol P m Ex-Strength Caplet) 1 EACH tablet Discontinued 500 mg PO AT BEDTIME June 26, 2015 1:00am October 28, 2018 4:30pm Start: 06-26-2015 End: 10-28-2018 acetaminophen 300 mg / HYDRO codone bitartrate 5 mg oral tablet (20 sources) Opioid Agonist Start: 10-28-2018 End: 11-01-2018 Start: 10-28-2018 End: 11-01-2018 Hydrocodone-Acetaminophen 1 EACH tablet Discontinued 1 - 2 {tbl} PO EVERY 6 HOURS NEEDED as needed for Pain 24 October 28, 2018 October 30, 2018 12:00am November 01, 2018 12:07am Start: 10-28-2018 End: 11-01-2018 take 1 tablet by mouth every six hours as needed Hydrocodone-Acetaminophen Discontinued 1 - 2 TABLET PO EVERY 6 HOURS NEEDED 24 October 28, 2018 November 01, 2018 12:07am Start: [...] tablet (20 sources) Antiarrhythmic Start: 04-07-2023 End: 12-27-2024 Start: 04-07-2023 End: 12-06-2024 take 1 tablet by mouth once daily Amiodarone 200 mg tablet Discontinued 200 mg PO DAILY 90 3 June 20, 2024 2:35pm December 06, 2024 8:26am heart Start: 01-22-2023 End: 02-25-2023 Start: 01-22-2023 End: 02-25-2023 take 1 tablet by mouth once daily Amiodarone 200 mg tablet Discontinued 200 mg PO DAILY 90 3 February 04, 2023 12:25pm February 25, 2023 8:12am apixaban 2.5 mg oral tablet (20 sources) Factor Xa Inhibitor Start: 04-07-2023 End: 09-12-2024 Start: 04-07-2023 End: 04-07-2023 Start: 01-06-2023 End: 02-25-2023 ascorbic acid 500 mg oral tablet (20 sources) Vitamin C Start: 02-07-2013 End: 08-23-2013 aspirin 81 mg delayed releas e oral tablet (20 sources) Platelet Aggregation Inhibitor, Nonsteroidal Anti-inflammatory Drug Start: 05-04-2023 End: 01-21-2024 Start: 04-14-2020 End: 04-07-2023 Start: 04-21-2017 take 1 tablet by mouth once da rony aspirin 81 mg chewable tablet Take 1 tablet by mouth once daily. 30 tablet 0 04/21/2017 Active Comment on above: Take 1 tablet by joaquín th once daily. atorvastatin 20 mg oral tabl et (20 sources) HMG-CoA Reductase Inhibitor Start: 12-06-2024 End: 12-19-2024 Start: 12-06-2024 End: 12-19-2024 take 1 tablet by mouth at bedtime Atorvastatin 20 mg Tablet Discontinued 20 mg PO AT BEDTIME 60 0 December 06, 2024 12:00am December 19, 2024 10:31am Start: 04-14-2020 End: 06-21-2020 Start: 04-14-2020 End: 06-21-2020 take 1 tablet by mouth at bedtime Atorvastatin 40 MG tablet Discontinued 40 mg PO AT BEDTIME May 16, 2020 1:03am June 21, 2020 3:28pm cholesterol lowering Start: 04-14-2020 End: 06-21-2020 clopidogrel 75 mg oral table t (20 sources) P2Y12 Platelet Inhibitor Start: 05-01-2020 End: 01-07-2023 Comment on above: Take 75 mg by mouth once daily. 24 hr dilTIAZem hydrochlorid e 120 mg extended release oral capsule (20 sources) Calcium Channel Kemal Start: 04-15-2023 End: 05-04-2023 Start: 01-22-2023 End: 01-22-2023 Start: 01-22-2023 End: 01-22-2023 take 1 capsule by mouth every twenty-four hours as needed Diltiazem Hcl 120 mg capsule,extended release 24 hr Discontinued 120 mg PO .PRN as needed for tachycardia 30 0 January 22, 2023 8:42am January 22, 2023 2:43pm As needed if elevated heart rate does not respond to metoprolol doxepin hydrochloride 25 mg oral capsule (3 sources) Tricyclic Antidepressant Start: 03-17-2006 DOXEPIN 25 MG CAP Indications: Rheumatoid arthritis(714.0) Take one(1) tablet daily. 90 3 03/17/2006 Active Comment on above: Take one(1) tablet d aily. doxycycline hyclate 100 mg oral capsule (20 sources) Tetracycline-class Drug Start: 07-04-2024 End: 07-11-2024 Start: 05-05-2017 doxycycline mo nohydrate 100 mg tablet 0 05/05/2017 Active FLUoxetine 20 mg oral tablet (20 sources) Serotonin Reuptake Inhibitor Start: 12-12-2021 End: 12-24-2021 folic acid 0.8 mg oral capsu le (20 sources) Start: 05-04-2023 End: 07-16-2023 Start: 05-23-2020 End: 04-07-2023 Start: 02-07-2013 End: 05-23-2020 Start: 02-07-2013 End: 05-23-2020 take 1 mg [...] on above: 1 tablet twice daily . furosemide 40 mg oral tablet (20 sources) Loop Diuretic Start: 07-03-2024 End: 12-27-2024 Start: 01-21-2024 End: 02-17-2024 Start: 01-21-2024 End: 01-21-2024 Furosemide 40 mg tablet Disc ontinued 20 mg PO daily January 21, 2024 1:58pm January 21, 2024 2:48pm Start: 11-09-2023 End: 01-21-2024 Start: 10-15-2023 End: 11-09-2023 take 1 tablet by mouth twice daily Furosemide 20 mg tablet Discontinued 20 mg PO TWICE A DAY 90 October 15, 2023 1:01pm November 09, 2023 2:46pm Start: 08-24-2023 End: 10-15-2023 take 2 tablets by mouth once daily Furosemide 20 mg tablet Discontinued 40 mg PO DAILY 90 August 24, 2023 9:20am October 15, 2023 1:02pm Start: 08-24-2023 take 40 mg by mouth once daily Furosemide Active 40 MG PO DAILY 90 August 24, 2023 9:20am Start: 05-25-2023 End: 11-09-2023 Start: 05-04-2023 End: 05-25-2023 Furosemide (Lasix) 40 mg tab let Discontinued 20 mg PO DAILY 30 May 04, 2023 5:20pm May 25, 2023 3:01pm Start: 04-06-2023 End: 04-16-2023 take 1 tablet by mouth twice daily Furosemide (Lasix) 40 mg tablet Discontinued 40 mg PO TWICE A DAY 14 April 06, 2023 12:31pm April 16, 2023 5:04pm Start: 03-22-2023 End: 05-25-2023 Start: 01-21-2023 End: 02-25-2023 Start: 01-21-2023 End: 02-25-2023 take 1 tablet by mouth twice daily Furosemide (Lasix) 40 mg tablet Discontinued 40 mg PO TWICE A DAY 180 February 04, 2023 12:26pm February 25, 2023 8:12am Start: 10-08-2020 End: 11-13-2020 Start: 04-29-2020 End: 05-01-2020 hydroxychloroquine sulfate 200 mg oral tablet (3 sources) Antimalarial, Antirheumatic Agent take 1 tablet by mouth once daily hydroxychloroquine (PLAQUENIL) 200 mg tablet Take 200 mg by mouth once daily. 0 Active Comment on above: Take 200 mg by mouth once daily. 24 hr isosorbide mononitrate 30 mg extended release oral tablet (20 sources) Nitrate Vasodilator Start: 2020 End: 2020 leucovorin 15 mg oral tablet (20 sources) Folate Analog Start: 2016 End: 2023 Start: 04-02-2016 End: 09-25-2020 Comment on above: Take 5 mg by mouth o nce each week. Take 15 mg by mouth one time a week. lisinopril 2.5 mg oral table t (20 sources) Angiotensin Converting Enzyme Inhibitor Start: 04-14-2020 End: 05-01-2020 LORazepam 0.5 mg oral tablet (20 sources) Benzodiazepine Start: 02-04-2023 End: 09-12-2024 Start: 02-04-2023 End: 09-12-2024 take 0.25 mg by mouth at bedtime as needed for anxiety Lorazepam 0.5 mg tablet Discontinued 0.25 mg PO AT BEDTIME as needed for anxiety February 04, 2023 12:00am September 12, 2024 11:13am Start: 02-04-2023 take 0.25 mg by mout h at bedtime Lorazepam Active 0.25 MG PO AT BEDTIME February 04, 2023 12:00am Start: 02-04-2023 metoprolol tartrate 25 mg or al tablet (20 sources) beta-Adrenergic Kemal Start: 12-06-2024 End: 12-27-2024 Start: 05-01-2024 End: 12-06-2024 Start: 03-22-2023 End: 05-04-2023 take 2 tablets by mouth twice daily Metoprolol Tartrate 25 mg tablet Discontinued 50 mg PO TWICE A DAY March 22, 2023 1:50pm May 04, 2023 4:37pm Start: 03-22-2023 End: 05-04-2023 take 50 mg by mouth twice daily Metoprolol Tartrate Di scontinued 50 MG PO TWICE A DAY March 22, 2023 1:50pm May 04, 2023 4:37pm Start: 02-25-2023 End: 05-01-2024 Start: 02-23-2023 End: 02-25-2023 Metoprolol Tartrate 50 mg ta blet Discontinued 25 mg PO TWICE A DAY February 23, 2023 12:00am February 25, 2023 8:12am Start: 02-23-2023 End: 02-25-2023 take 25 mg by mouth twice daily Metoprolol Tartrate Di scontinued 25 MG PO TWICE A DAY February 23, 2023 12:00am February 25, 2023 8:12am Start: 01-21-2023 End: 02-25-2023 Start: 06-09-2022 metoprolol suc cinate XL (Toprol-XL) 25 MG 24 hr tablet Start: 01-12-2022 metoprolol suc cinate ER (TOPROL XL) 25 mg 24 hr tablet Start: 11-06-2021 End: 01-21-2023 Start: 11-06-2021 End: 01-21-2023 take 1 tablet by mouth twice daily Metoprolol Succinate 25 mg tablet extended release 24 hr Discontinued 25 mg PO TWICE A DAY 180 3 January 20, 2023 12:36pm January 21, 2023 7:06pm Start: 12-24-2020 End: 11-06-2021 Start: 09-25-2020 End: 12-24-2020 Metoprolol Tartrate 50 mg ta blet Discontinued 25 mg PO TWICE A DAY 180 3 September 25, 2020 4:21pm December 24, 2020 11:09am blood pressure Start: 09-25-2020 End: 12-24-2020 take 25 mg by mouth twice daily Metoprolol Tartrate Di scontinued 25 MG PO TWICE A DAY 180 September 25, 2020 4:21pm December 24, 2020 11:09am Start: 06-21-2020 End: 12-24-2020 Start: 05-29-2020 End: 06-21-2020 take 2 tablets by mouth twice daily Metoprolol Tartrate 25 mg tablet Discontinued 50 mg PO TWICE A DAY May 29, 2020 6:04pm June 21, 2020 3:28pm blood pressure Start: 05-29-2020 End: 06-21-2020 take 50 mg by mouth twice daily Metoprolol Tartrate Di scontinued 50 MG PO TWICE A DAY May 29, 2020 6:04pm June 21, 2020 3:28pm Start: 04-14-2020 End: 06-21-2020 Start: 04-14-2020 End: 05-13-2020 Metoprolol Tartrate 25 MG ta blet Discontinued 12.5 mg PO TWICE A DAY 60 0 April 14, 2020 1:00am May 13, 2020 3:22pm Start: 04-14-2020 End: 05-13-2020 take 12.5 mg by mouth twice daily Metoprolol Tartrate Discontinued 12.5 MG PO TWICE A DAY 60 April 14, 2020 1:00am May 13, 2020 3:22pm Comment on above: Take 25 mg by mouth once daily. mirtazapine 30 mg oral table t (20 sources) Start: 05-04-2023 End: 12-27-2024 Start: 05-04-2023 End: 09-12-2024 Mirtazapine 30 mg tablet Act dana 45 mg PO DAILY September 12, 2024 11:12am Start: 05-04-2023 End: 01-21-2024 Mirtazapine 30 mg tablet Dis continued 15 mg PO DAILY May 04, 2023 1:00am January 21, 2024 1:59pm Start: 05-04-2023 take 15 mg by mouth once daily Mirtazapine Active 15 MG PO DAILY May 04, 2023 1:00am Start: 08-19-2022 End: 04-07-2023 Start: 06-24-2022 End: 02-04-2023 MULTI-VITAMIN ORAL (10 sources) take 1 tablet by joaquín th once daily MULTI-VITAMIN ORAL Take 1 tablet by mouth once daily. 0 Active MULTI-VITAMIN OR AL Take by mouth. 0 Active Comment on above: Take by mouth. Take 1 tablet by joaquín th once daily. Multivitamin 1 EACH tablet (16 sources) Start: 02-07-2013 End: 04-22-2020 Multivitamin 1 EACH tablet Discontinued 1 NMA PO DAILY 0 February 07, 2013 12:00am April 22, 2020 11:01am vitamin Start: 02-07-2013 End: 04-22-2020 Multivitamin 1 EACH tablet D iscontinued 1 NMA PO DAILY February 07, 2013 12:00am April 22, 2020 [...] Nonsteroidal Anti-inflammatory Drug Start: 02-07-2013 End: 04-14-2020 NAPROXEN SODIUM (ALEVE ORAL) Take by mouth twice daily. 0 Active Comment on above: Take by mouth twice daily. Albright-3 Fatty Acids-Vitamin E 1,000 mg cap (10 sources) Albright-3 Fatty Acids-Vitamin E 1,000 mg cap Take 1 capsule by mouth. 0 Active Comment on above: Take 1 capsule by [facility]. omeprazole 40 mg delayed release oral capsule (3 sources) Proton Pump Inhibitor take 1 capsule by mouth once daily Omeprazole 40 mg capsule Take 40 mg by mouth once daily. 0 Active Comment on above: Take 40 mg by mouth once daily. pantoprazole 40 mg delayed release oral tablet (20 sources) Proton Pump Inhibitor Start: 7 End: 0 ramipril 2.5 mg oral capsule (20 sources) Angiotensin Converting Enzyme Inhibitor Start: 4 End: 4 12 hr ranolazine 500 mg extended release oral tablet (20 sources) Anti-anginal Start: 3 End: 3 spironolactone 25 mg oral tablet (20 sources) Aldosterone Antagonist Start: 3 End: 5 Start: 02-09-2023 End: 02-25-2023 Start: 08-24-2022 End: 01-07-2023 ticagrelor 90 mg oral tablet (20 sources) Start: 04-14-2020 End: 05-01-2020 triamcinolone acetonide 1 mg/ml topical cream (7 sources) Corticosteroid Start: 02-25-2022 triamcinolone acetonide (KENALOG) 0.1 % cream APPLY CREAM TO AFFECTED FLARES ON RIGHT SIDE OF NECK TWICE DAILY FOR 2 WEEKS, THEN TWICE WEEKLY NEEDED 0 02/25/2022 Active Comment on above: APPLY CREAM TO AFFEC DONAVON FLARES ON RIGHT SIDE OF NECK TWICE DAILY FOR 2 WEEKS, THEN TWICE WEEKLY NEEDED Vitamin H12-Iwqyayz B1 5.5-12.5 mg-mcg/5 mL Liqd (10 sources) take 5.5-12.5 mg by mouth once daily Vitamin M05-Tfbxebz B1 5.5-12.5 mg-mcg/5 mL Liqd Take 1 tablet by mouth once daily. 0 Active Vitamin R06-Qeix min B1 5.5-12.5 mg-mcg/5 mL Liqd Take by mouth. 0 Active Comment on above: Take by mouth. Take 1 tablet by joaquín th once daily. vitamin b6 50 mg oral tablet (20 sources) Start: 02-07-2013 End: 08-23-2013 vitamin e 180 mg oral tablet (3 sources) Vitamin E 400 un it Tab Take by mouth once daily. 0 Active Comment on above: Take by mouth once d aily. Problems Active Problems Problem Classification Problem Date Documented Date Episodic/Chronic Acute and unspecified renal failure (20 sources) Acute renal failure syndrome; Translations: [Acute kidney failure, unspecified] 02-23-2023 Episodic Acute myocardial infarction (20 sources) Myocardial infarction; Translations: [ST elevation (STEMI) myocardial infarction of unspecified site] Onset: 3 05-15-2020 Chronic Cancer of breast (8 sources) Malignant tumor of breast ; Translations: [Malignant neoplasm of unspecified site of unspecified female breast] Onset: 3 09-22-2022 Chronic Cancer of breast (20 sources) History of malignant neoplasm of breast; Translations: [Personal history of malignant neoplasm of breast] Episodic Comment on above: No evidence of disea se clinically. She is 86 so can skip mammogram and do physical exam.New pleural effusion and lung nodule.PET CT scan on 09/08/2022 shows hypermetabolic activity in the mediastinum and bilateral thoracic perihilar area, mild activity in right upper lobe does not fulfill quantitative criteria for malignancy.Biopsy of lung is negative. No evidence of disea se clinically. She is 86 so can skip mammogram and do physical exam.New pleural effusion and lung nodule.PET CT scan on 09/08/2022 shows hypermetabolic activity in the mediastinum and bilateral thoracic perihilar area, mild activity in right upper lobe does not fulfill quantitative criteria for malignancy.Biopsy of lung was negative. 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 Conditions associated with dizziness or vertigo (20 sources) Dizziness; Translations: [Dizziness and giddiness] Onset: 5 11-30-2024 Episodic Conduction disorders (20 sources) Complete atrioventricular block; Translations: [Atrioventricular block, complete] Onset: 5 02-23-2023 Chronic Comment on above: DPPM implant 3 @ [facility] Congestive heart failure; nonhypertensive (17 sources) Congestive heart failure; Translations: [Heart failure, unspecified] Onset: 5 12-03-2024 Chronic Coronary atherosclerosis and other heart disease (20 sources) Coronary atherosclerosis; Translations: [Atherosclerotic heart disease of [place] coronary artery without angina pectoris] Onset: 3 Chronic Comment on above: Drug-eluting stent t o mid RCA on 04/12/2020; Coronary atherosclerosis and other heart disease (16 sources) Presence of coronary angioplasty implant and graft; Translations: [Percutaneous transluminal coronary angioplasty status] Onset: 0 Episodic Disorders of lipid metabolism (20 sources) Hyperlipidemia; Translations: [Hyperlipidemia, unspecified] Onset: 3 Chronic E Codes: Fall (20 sources) Accidental fall ; Translations: [Fall (on) (from) other stairs and steps, initial encounter] Onset: 5 11-12-2022 Episodic Fluid and electrolyte disorders (20 sources) Hyponatremia; Translations: [Hypo-osmolality and hyponatremia] 02-24-2023 Episodic Heart valve disorders (20 sources) Mitral valve regurgitation; Translations: [Nonrheumatic mitral (valve) insufficiency] Onset: 5 Chronic Immunizations and screening for infectious disease (20 sources) Infectious disease carrier; Translations: [Carrier of infectious disease, unspecified] 05-10-2020 Episodic Infective arthritis and osteomyelitis (except that caused by tuberculosis or sexually transmitted disease) (20 sources) Inflammatory disorder of extremity; Translations: [Osteomyelitis, unspecified] Onset: 3 Chronic Malaise and fatigue (20 sources) Fatigue; Translations: [Other fatigue] 03-29-2023 Episodic Nonspecific chest pain (20 sources) Chest pain; Translations: [Chest pain, unspecified] Episodic Other acquired deformities (4 sources) Cervical kyphosis; Translations: [Unspecified kyphosis, cervical region] 12-19-2024 Chronic Other acquired deformities (4 sources) Spondylolisthesis; Translations: [Spondylolisthesis, cervical region] 12-19-2024 Episodic Other aftercare (20 sources) Long-term current use of anticoagulant; Translations: [supervisor intermediates (current) use of anticoagulants] 01-18-2023 Episodic Other aftercare (18 sources) Long-term current use of diuretic; Translations: [Encounter for therapeutic drug level monitoring] 07-03-2024 Episodic Other aftercare (1 source) Other bed bug exterminator (current) drug therapy; Translations: [Other assisted (current) drug therapy] Onset: 5 Episodic Other bone disease and musculoskeletal deformities [...] hypotension; Translations: [Orthostatic hypotension] 01-04-2023 Episodic Other circulatory disease (2 sources) Low blood pressure; Translations: [Hypotension, unspecified] 12-27-2024 Episodic Other connective tissue disease (17 sources) Recurrent falls ; Translations: [Repeated falls] [...] of dyspnea; Translations: [Other respiratory abnormalities] Onset: Episodic Other lower respiratory disease (20 sources) Lung mass; Translations: [Other nonspecific abnormal finding of lung field] 08-24-2022 Episodic Comment on above: Had navigational bro nchoscopy & biopsy, histology was negative. It is stable in size. Had navigational bro nchoscopy & biopsy, histology was negative. It was stable in size. Other lower respiratory disease (20 sources) Other nonspecific abnormal finding of lung field; Translations: [Swelling, mass, or lump in chest] 08-24-2022 Episodic Other lower respiratory disease (1 source) Nodule of lung; Translations: [Solitary pulmonary nodule] 01-05-2023 Episodic Other lower respiratory disease (1 source) Disorder of lower respiratory system; Translations: [Other disorders of lung] 08-03-2023 Episodic Other lower respiratory disease (18 sources) History of pleural effusion; Translations: [Personal history of other diseases of the respiratory system] 07-03-2024 Episodic Other lower respiratory disease (18 sources) Dyspnea; Translations: [Shortness of breath] 07-03-2024 Episodic Other nervous system disorders (2 sources) Other chronic pain; Translations: [Chronic pain of left ankle] Onset: 2 Chronic Other nervous system disorders (18 sources) Paresthesia; Translations: [Paresthesia of skin] 11-30-2024 Episodic Other non-traumatic joint disorders (20 sources) Swollen ankle region; Translations: [Effusion, left ankle] 05-15-2020 Episodic Other non-traumatic joint disorders (2 sources) Chronic ankle pain; Translations: [Pain in left ankle and joints of left foot] Episodic Other screening for suspected conditions (not mental disorders or infectious disease) (20 sources) Blood urea abnormal; Translations: [Abnormal finding of blood chemistry, unspecified] 05-04-2023 Episodic Elisa-; endo-; and myocarditis; cardiomyopathy (except that caused by tuberculosis or sexually transmitted disease) (20 sources) Cardiomyopathy; Translations: [Other cardiomyopathies] Onset: 5 02-04-2023 Chronic Pleurisy; pneumothorax; pulmonary collapse (20 sources) Pleural effusion; Translations: [Pleural effusion, not elsewhere classified] Onset: 3 08-24-2022 Episodic Comment on above: R/O metastatic disea se from breast cancer.Diagnostic thoracentesis on 08/25/2022, cytology was negative.CA 15 3 is elevated, 35.3 on 08/24/2022.CA 125 is elevated, 43 on 08/24/2022.FOB, EBUS of mediastinal node, biopsy show no malignant cells on 09/24/2022.Comes for follow up.No evidence of disease.Pleural fluid is stable on CXR done on . R/O metastatic disea se from breast cancer.Diagnostic thoracentesis on 08/25/2022, cytology was negative.CA 15 3 is elevated, 35.3 on 08/24/2022.CA 125 is elevated, 43 on 08/24/2022.FOB, EBUS of mediastinal node, biopsy show no malignant cells on 09/24/2022.Comes for follow up.No evidence of disease. Labs reviewed, tumor markers are still slightly elevated. Residual codes; unclassified (3 sources) History of ankle surgery; Translations: [Other specified postprocedural states] Episodic Residual codes; unclassified (4 sources) Postoperative state; Translations: [Other specified postprocedural states] Episodic Rheumatoid arthritis and related disease (20 sources) Rheumatoid arthritis, unspecified; Translations: [Rheumatoid arthritis] Onset: 6 01-08-2006 Chronic Spondylosis; intervertebral disc disorders; other back problems (7 sources) Neck pain; Translations: [Cervical radiculopathy] Onset: 5 Episodic Sprains and strains (17 sources) Strain of neck muscle; Translations: [Strain of muscle, fascia and tendon at neck level, initial encounter] 07-23-2024 Episodic Superficial injury; contusion (20 sources) Contusion of coccyx; Translations: [Contusion of lower back and pelvis, initial encounter] 11-12-2022 Episodic Syncope (20 sources) Near syncope; Translations: [Syncope and collapse] 05-15-2020 Episodic Unclassified (1 source) Unknown / UNK(Unknown) Onset: 7 Unclassified (1 source) 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); Translations: [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)] Onset: 2 Unclassified (2 sources) Results; Translations: [Results] Onset: 4 Unclassified (5 sources) Cervical DJD Unclassified (2 sources) Balance problems Unclassified (2 sources) Spondylolisthesis of cervical region Viral infection (14 sources) Herpes zoster; Translations: [Zoster without complications] 09-12-2024 Episodic Past or Other Problems Problem Classification Problem Date Documented Date Episodic/Chronic Blindness and vision defects (20 sources) Diplopia; Translations: [Diplopia] Onset: 07-18-2024 Episodic Complications of surgical procedures or medical [...] [Solitary pulmonary nodule] Onset: 09-16-2022 Episodic Other lower respiratory disease (1 source) Shortness of breath; Translations: [Shortness of breath] Onset: 08-01-2024 Episodic Other non-traumatic joint disorders (2 sources) [...] on above: Status post masectom y in 2005, following with Dr. Phillip Unclassified (20 sources) Contamination; Translations: [Contamination] 05-15-2020 Results Test Name Value Interpretation Reference Range Facility Cardiology Visit Reporton Cardiology Visit Report Normal [facility] Absolute lymphocyte countOrd ered By: Leena Serra on 12-22-2024 Lymphocytes Auto (Unsp spec) [#/Vol] 0.80 10*3/uL Low 0.83-4.51 [facility] Anion gap in Serum or Plasma Ordered By: Leena Serra on 12-22-2024 Anion gap [Moles/Vol] 16 mmol/L High 5-15 [facility] Automated lymphocyte count a s percentage of total leukocytesOrdered By: Leena Serra on 12-22-2024 Lymphocytes/100 WBC Auto (Unsp spec) 22.3 % 19-41 [facility] BUN/creatinine ratioOrdered By: Leena Serra on 12-22-2024 Urea nitrogen/Creatinine [Mass ratio] 19.1 mg/mg 10-20 [facility] Basophil percentageOrdered B y: Leena Serra on 12-22-2024 Basophils/100 WBC (Bld) 0.6 % 0-1 [facility] Bilirubin, totalOrdered By: Leena Leijaandrew on 12-22-2024 Bilirubin [Mass/Vol] 1.06 mg/dL 0.00-1.30 [facility] CBC W/Diff, Automatedon 12-02 Absolute Lymph 0.80 X10 3/uL Low 0.83-4.51 [facility] Comment on above: Performed By: #### L 100.0100, L500.4050 ####[facility] [id number] [place], [address] Absolute Neut 2.2 X10 3/uL Normal 2.0-7.7 [facility] Comment on above: Performed By: #### L 100.0100, L500.4050 ####[facility] [id number] [place], [address] Basophils/100 WBC (Bld) 0.6 % Normal 0-1 [facility] Comment on above: Performed By: #### L 100.0100, L500.4050 ####[facility] [id number] [place], [address] Eosinophils/100 WBC (Bld) 0.8 % Normal 0-5 [facility] Comment on above: Performed By: #### L 100.0100, L500.4050 ####[facility] [id number] [place], [address] Erythrocyte distribution width (RBC) [Ratio] 14.4 % Normal 11.6-14.6 [facility] Comment on above: Performed By: #### L 100.0100, L500.4050 ####[facility] [id number] [place], [address] Hematocrit (Bld) [Volume fraction] 44.5 % Normal 37-47 [facility] Comment on above: Performed By: #### L 100.0100, L500.4050 ####[facility] [id number] [place], [address] Hemoglobin (Bld) [Mass/Vol] 15.2 g/dL High 12.0-15.0 [facility] Comment on above: Performed By: #### L 100.0100, L500.4050 ####[facility] [id number] [place], [address] IG% 0.300 Normal 0.0-0.9 [facility] Comment on above: Result Comment: IG% - Immature Granulocytes (promyelocytes, myelocytes andmetamyelocytes) > 1% indicates that a LEFT SHIFT is Present. Performed By: #### L 100.0100, L500.4050 ####[facility] [id number] [place], [address] Lymphocytes/100 WBC (Bld) 22.3 % Normal 19-41 [facility] Comment on above: Performed By: #### L 100.0100, L500.4050 ####[facility] [address] [place], [address] MCH (RBC) [Entitic mass] 33.9 pg High 27.0-32.0 [facility] Comment on above: Performed By: #### L 100.0100, [id number] ####[facility] [id number] [place], [address] MCHC (RBC) [Mass/Vol] 34.2 g/dL Normal 32-36 [facility] Comment on above: Performed By: #### L 100.0100, [id number] ####[facility] [address] [place], [address] MCV (RBC) [Entitic vol] 99.1 fL High 81-99 [facility] Comment on above: Performed By: #### L 100.0100, L500.4050 ####[facility] [id number] [place], [address] Monocytes/100 WBC (Bld) 15.6 % High 0-10 [facility] Comment on above: Performed By: #### L 100.0100, [id number] ####[facility] [id number] [place], [address] Neutrophils/100 WBC (Bld) 60.4 % Normal 47-70 [facility] Comment on above: Performed By: #### L 100.0100, L500.4050 ####[facility] [address] [place], [address] Nucleated RBC (Bld) [#/Vol] 0 10*3/uL Normal 0-5 [facility] Comment on above: Performed By: #### L 100.0100, [id number] ####[facility] [address] [place], [address] Platelet mean volume (Bld) [Entitic vol] 12.4 fL High 6.2-12.0 [facility] Comment on above: Performed By: #### L 100.0100, L500.4050 ####[facility] [id number] [place], [address] Platelets (Bld) [#/Vol] 93 10*3/uL Low 150-450 [facility] Comment on above: Performed By: #### L 100.0100, L500.4050 ####[facility] [address] [place], [address] RBC (Bld) [#/Vol] 4.49 10*6/uL Normal 4.2-5.4 [facility] Comment on above: Performed By: #### L 100.0100, L500.4050 ####[facility] [id number] [place], [address] RDW SD 52.5 fl High 35.1-43.9 [facility] Comment on above: Performed By: #### L 100.0100, [id number] ####[facility] [address] [place], [address] WBC (Bld) [#/Vol] 3.6 10*3/uL Low 4.4-11.0 [facility] Comment on above: Performed By: #### L 100.0100, [id number] ####[facility] [address] [place], [address] Carbon dioxide, total [Moles /volume] in Central venous bloodOrdered By: Leena Serra on 12-22-2024 CO2 [Moles/Vol] 17.9 mmol/L Low 21.0-32.0 [facility] Chloride assayOrdered By: Wisam Serra on 12-22-2024 Chloride [Moles/Vol] 100 mmol/L 98-108 [facility] Comprehensive Metabolic Prof ilon 12-22-2024 Albumin [Mass/Vol] 4.2 g/dL Normal 3.4-4.8 [facility] Comment on above: Performed By: #### L 100.0100, [id number] ####[facility] [address] [place], [address] Albumin/Globulin [Mass ratio] 1.9 {ratio} Normal 0.9-2.4 [facility] Comment on above: Performed By: #### L 100.0100, L500.4050 ####[facility] [id number] [place], [address] ALK PHOS 43 U/L Normal 35-104 [facility] Comment on above: Performed By: #### L 100.0100, [id number] ####[facility] [address] [place], [address] ALT [Catalytic activity/Vol] 32 U/L Normal <=34 [facility] Comment on above: Performed By: #### L 100.0100, [id number] ####[facility] [address] [place], [address] AST [Catalytic activity/Vol] 28 U/L Normal <=31 [facility] Comment on above: Performed By: #### L 100.0100, [id number] ####[facility] [address] [place], [address] Bilirubin [Mass/Vol] 1.06 mg/dL Normal 0.00-1.30 [facility] Comment on above: Performed By: #### L 100.0100, [id number] ####[facility] [address] [place], [address] BUN/CRE 19.1 RATIO Normal 10-20 [facility] Comment on above: Performed By: #### L 100.0100, [id number] ####[facility] [address] [place], [address] Calcium [Mass/Vol] 9.4 mg/dL Normal 7.6-11.0 [facility] Comment on above: Performed By: #### L 100.0100, [id number] ####[facility] [address] [place], [address] Chloride [Moles/Vol] 100 mmol/L Normal 98-108 [facility] Comment on above: Performed By: #### L 100.0100, [id number] ####[facility] [address] [place], [address] CO2 [Moles/Vol] 17.9 mmol/L Low 21.0-32.0 [facility] Comment on above: Performed By: #### L 100.0100, [id number] ####[facility] [address] [place], [address] Creatinine [Mass/Vol] 1.39 mg/dL High 0.70-1.20 [facility] Comment on above: Performed By: #### L 100.0100, [id number] ####[facility] [address] [place], [address] GAP 16 High 5-15 [facility] Comment on above: Performed By: #### L 100.0100, [id number] ####[facility] [address] [place], [address] GFR/1.73 sq M.predicted among non-blacks MDRD (S/P/Bld) [Vol rate/Area] 36 mL/min/{1.73_m2} Low >60 [facility] Comment on above: Result Comment: mL/m in/1.73m2 CKD-EPI Creatinine Equation (2020) Performed By: #### L 100.0100, L500.4050 ####[facility] [address] [place], [address] Globulin (S) [Mass/Vol] 2.3 g/dL Normal 2.2-4.2 [facility] Comment on above: Performed By: #### L 100.0100, L500.4050 ####[facility] [address] [place], [address] Glucose [Mass/Vol] 94 mg/dL Normal 70-99 [facility] Comment on above: Performed By: #### L 100.0100, L500.4050 ####[facility] [address] [place], [address] Potassium [Moles/Vol] 4.1 mmol/L Normal 3.3-5.1 [facility] Comment on above: Performed By: #### L 100.0100, L500.4050 ####[facility] [address] [place], [address] Sodium [Moles/Vol] 135 mmol/L Normal 133-145 [facility] Comment on above: Performed By: #### L 100.0100, L500.4050 ####[facility] [address] [place], [address] T PROT 6.5 g/dL Normal 5.9-8.4 [facility] Comment on above: Performed By: #### L 100.0100, L500.4050 ####[facility] [address] [place], [address] Urea nitrogen [Mass/Vol] 27 mg/dL High 4-19 [facility] Comment on above: Performed By: #### L 100.0100, L500.4050 ####[facility] [address] [place], [address] Eosinophil percentageOrdered By: Leena Serra on 12-22-2024 Eosinophils/100 WBC (Bld) 0.8 % 0-5 [facility] Erythrocyte distribution wid th ratioOrdered By: Leena Serra on 12-22-2024 Erythrocyte distribution width (RBC) [Ratio] 14.4 % 11.6-14.6 [facility] Erythrocyte distribution wid th standard deviationOrdered By: Leena Serra on 12-22-2024 Erythrocyte distribution width (RBC) [Ratio] 52.5 fl High 35.1-43.9 [facility] Glomerular filtration rate ( GFR) estimation/1.73 sq m using serum, plasma, or whole bOrdered By: Leena Serra on 12-22-2024 GFR/1.73 sq M.predicted among non-blacks MDRD (S/P/Bld) [Vol rate/Area] 36 mL/min/{1.73_m2} Low >60 [facility] Hematocrit Auto (Bld) [Volum e fraction]Ordered By: Leena Serra on 12-22-2024 Hematocrit (Bld) [Volume fraction] 44.5 % 37-47 [facility] Hemoglobin measurementOrdere d By: Leena Serra on 12-22-2024 Hemoglobin (Bld) [Mass/Vol] 15.2 g/dL High 12.0-15.0 [facility] Immature granulocytes/100 WB C Auto (Bld)Ordered By: Leena Serra on 12-22-2024 Immature granulocytes/100 WBC (Bld) 0.300 % 0.0-0.9 [facility] MCV (mean corpuscular volume ) determinationOrdered By: Leena Serra on 12-22-2024 MCV (RBC) [Entitic vol] 99.1 fL High 81-99 [facility] Mean corpuscular hemoglobin (MCH) determinationOrdered By: Leena Serra on 12-22-2024 MCH (RBC) [Entitic mass] 33.9 pg High 27.0-32.0 [facility] Monocyte percentageOrdered B y: Leena Serra on 12-22-2024 Monocytes/100 WBC (Bld) 15.6 % High 0-10 [facility] Neutrophil percentageOrdered By: Leena Serra on 12-22-2024 Neutrophils/100 WBC (Bld) 60.4 % 47-70 [facility] No Panel InformationOrdered By: Leena Serra on 12-22-2024 28 U/L <32 [facility] Platelet countOrdered By: Wsiam Serra on 12-22-2024 Platelets (Bld) [#/Vol] 93 10*3/uL Low 150-450 [facility] Potassium measurement (mass/ volume)Ordered By: Leena Serra on 12-22-2024 Potassium (Unsp spec) [Mass/Vol] 4.1 mmol/L 3.3-5.1 [facility] RBC Auto (Bld) [#/Vol]Ordere d By: Leena Serra on 12-22-2024 RBC (Bld) [#/Vol] 4.49 10*6/uL 4.2-5.4 [facility] Serum creatinine measurement (mass/volume)Ordered By: Leena Serra on 12-22-2024 Creatinine [Mass/Vol] 1.39 mg/dL High 0.70-1.20 [facility] Serum globulin measurementOr dered By: Leena Serra on 12-22-2024 Globulin (S) [Mass/Vol] 2.3 g/dL 2.2-4.2 [facility] Serum glucose measurement (m ass/volume)Ordered By: Leena Serra on 12-22-2024 Glucose [Mass/Vol] 94 mg/dL 70-99 [facility] Serum or plasma alanine hay otransferase (ALT) measurementOrdered By: Leena Serra on 12-22-2024 ALT [Catalytic activity/Vol] 32 U/L <35 [facility] Serum or plasma albumin criss urement (mass/volume)Ordered By: Leena Serra on 12-22-2024 Albumin [Mass/Vol] 4.2 g/dL 3.4-4.8 [facility] Serum or plasma albumin/glob ulin mass ratioOrdered By: Leena Serra on 12-22-2024 Albumin/Globulin [Mass ratio] 1.9 {ratio} 0.9-2.4 [facility] Serum or plasma alkaline ezra sphatase measurementOrdered By: Leena Serra on 12-22-2024 ALP [Catalytic activity/Vol] 43 U/L 35-104 [facility] Serum or plasma calcium criss urement (mass/volume)Ordered By: Leena Serra on 12-22-2024 Calcium [Mass/Vol] 9.4 mg/dL 7.6-11.0 [facility] Serum or plasma urea nitroge n measurement (mass/volume)Ordered By: Leena Serra on 12-22-2024 Urea nitrogen [Mass/Vol] 27 mg/dL High 4-19 [facility] Sodium levelOrdered By: Ara Serra on 12-22-2024 Sodium [Moles/Vol] 135 mmol/L 133-145 [facility] Total proteinOrdered By: Yolette Serra on 12-22-2024 Protein [Mass/Vol] 6.5 g/dL 5.9-8.4 [facility] White blood cell (WBC) count Ordered By: Leena Serra on 12-22-2024 WBC (Bld) [#/Vol] 3.6 10*3/uL Low 4.4-11.0 [facility] Cerv Spine 4 or 5 Viewson Cerv Spine 4 or 5 Views Normal [facility] Orthopedic Visit Reporton Orthopedic Visit Report Normal [facility] Basic Metabolic Profile (BMP )on 12-09-2024 BUN Normal 4-19 [facility] Comment on above: Result Comment: Canc elled via OM: MD Ordered Performed By: #### L 500.2500, L100.0100 ####[facility] [address] [place], [address] BUN/CRE Normal 10-20 [facility] Comment on above: Result Comment: Canc elled via OM: MD Ordered Performed By: #### L 500.2500, L100.0100 ####[facility] [address] [place], [address] Calcium Normal 7.6-11.0 [facility] Comment on above: Result Comment: Canc elled via OM: MD Ordered Performed By: #### L 500.2500, L100.0100 ####[facility] [address] [place], [address] CL Normal 98-108 [facility] Comment on above: Result Comment: Canc elled via OM: MD Ordered Performed By: #### L 500.2500, L100.0100 ####[facility] [address] [place], [address] CO2 Normal 21.0-32.0 [facility] Comment on above: Result Comment: Canc elled via OM: MD Ordered Performed By: #### L 500.2500, L100.0100 ####[facility] [address] [place], [address] CREAT,SERUM Normal 0.70-1.20 [facility] Comment on above: Result Comment: Canc elled via OM: MD Ordered Performed By: #### L 500.2500, L100.0100 ####[facility] [address] [place], [address] eGFR Normal >60 [facility] Comment on above: Result Comment: Canc elled via OM: MD Ordered Performed By: #### L 500.2500, L100.0100 ####[facility] [address] [place], [address] GAP Normal 5-15 [facility] Comment on above: Result Comment: Canc elled via OM: MD Ordered Performed By: #### L 500.2500, L100.0100 ####[facility] [address] [place], [address] GLU Normal 70-99 [facility] Comment on above: Result Comment: Canc elled via OM: MD Ordered Performed By: #### L 500.2500, L100.0100 ####[facility] [address] [place], [address] Potassium Normal 3.3-5.1 [facility] Comment on above: Result Comment: Canc elled via OM: MD Ordered Performed By: #### L 500.2500, L100.0100 ####[facility] [address] [place], [address] Basic Metabolic Profile (BMP) Normal 133-145 [facility] Comment on above: Result Comment: Canc elled via OM: MD Ordered Performed By: #### L 500.2500, L100.0100 ####[facility] [address] [place], [address] CBC W/Diff, Automatedon 08-0 Absolute Neut Normal 2.0-7.7 [facility] Comment on above: Result Comment: Canc elled via OM: MD Ordered Performed By: #### L 500.2500, L100.0100 ####[facility] [address] [place], [address] HCT Normal 37-47 [facility] Comment on above: Result Comment: Canc elled via OM: MD Ordered Performed By: #### L 500.2500, L100.0100 ####[facility] [address] [place], [address] HGB Normal 12.0-15.0 [facility] Comment on above: Result Comment: Canc elled via OM: MD Ordered Performed By: #### L 500.2500, L100.0100 ####[facility] [address] [place], [address] MCH Normal 27.0-32.0 [facility] Comment on above: Result Comment: Canc elled via OM: MD Ordered Performed By: #### L 500.2500, L100.0100 ####[facility] [address] [place], [address] MCHC Normal 32-36 [facility] Comment on above: Result Comment: Canc elled via OM: MD Ordered Performed By: #### L 500.2500, L100.0100 ####[facility] [address] [place], [address] MCV Normal 81-99 [facility] Comment on above: Result Comment: Canc elled via OM: MD Ordered Performed By: #### L 500.2500, L100.0100 ####[facility] [address] [place], [address] NEUT% Normal 47-70 [facility] Comment on above: Result Comment: Canc elled via OM: MD Ordered Performed By: #### L 500.2500, L100.0100 ####[facility] [address] [place], [address] PLT Normal 150-450 [facility] Comment on above: Result Comment: Canc elled via OM: MD Ordered Performed By: #### L 500.2500, L100.0100 ####[facility] [address] [place], [address] RBC Normal 4.2-5.4 [facility] Comment on above: Result Comment: Canc elled via OM: MD Ordered Performed By: #### L 500.2500, L100.0100 ####[facility] [address] [place], [address] RDW CV Normal 11.6-14.6 [facility] Comment on above: Result Comment: Canc elled via OM: MD Ordered Performed By: #### L 500.2500, L100.0100 ####[facility] [address] [place], [address] RDW SD Normal 35.1-43.9 [facility] Comment on above: Result Comment: Canc elled via OM: MD Ordered Performed By: #### L 500.2500, L100.0100 ####[facility] [address] [place], [address] WBC Normal 4.4-11.0 [facility] Comment on above: Result Comment: Canc elled via OM: MD Ordered Performed By: #### L 500.2500, L100.0100 ####[facility] [address] [place], [address] Basic Metabolic Profile (BMP )on 12-08-2024 BUN Normal 4-19 [facility] Comment on above: Result Comment: Canc elled via OM: MD Ordered Performed By: #### L 100.0100, L500.2500 ####[facility] [address] [place], [address] Result Comment: Canc elled via OM: Order cancelled - Patient discharged Performed By: #### L 500.2500, L100.0100 ####[facility] [address] [place], [address] BUN/CRE Normal 10-20 [facility] Comment on above: Result Comment: Canc elled via OM: MD Ordered Performed By: #### L 100.0100, L500.2500 ####[facility] [address] [place], [address] Result Comment: Canc elled via OM: Order cancelled - Patient discharged Performed By: #### L 500.2500, L100.0100 ####[facility] [address] [place], [address] Calcium Normal 7.6-11.0 [facility] Comment on above: Result Comment: Canc elled via OM: MD Ordered Performed By: #### L 100.0100, L500.2500 ####[facility] [address] [place], [address] Result Comment: Canc elled via OM: Order cancelled - Patient discharged Performed By: #### L 500.2500, L100.0100 ####[facility] [address] [place], [address] CL Normal 98-108 [facility] Comment on above: Result Comment: Canc elled via OM: MD Ordered Performed By: #### L 100.0100, L500.2500 ####[facility] [address] [place], [address] Result Comment: Canc elled via OM: Order cancelled - Patient discharged Performed By: #### L 500.2500, L100.0100 ####[facility] [address] [place], [address] CO2 Normal 21.0-32.0 [facility] Comment on above: Result Comment: Canc elled via OM: MD Ordered Performed By: #### L 100.0100, L500.2500 ####[facility] [address] [place], [address] Result Comment: Canc elled via OM: Order cancelled - Patient discharged Performed By: #### L 500.2500, L100.0100 ####[facility] [address] [place], [address] CREAT,SERUM Normal 0.70-1.20 [facility] Comment on above: Result Comment: Canc elled via OM: MD Ordered Performed By: #### L 100.0100, L500.2500 ####[facility] [address] [place], [address] Result Comment: Canc elled via OM: Order cancelled - Patient discharged Performed By: #### L 500.2500, L100.0100 ####[facility] [address] [place], [address] eGFR Normal >60 [facility] Comment on above: Result Comment: Canc elled via OM: MD Ordered Performed By: #### L 100.0100, L500.2500 ####[facility] [address] [place], [address] Result Comment: Canc elled via OM: Order cancelled - Patient discharged Performed By: #### L 500.2500, L100.0100 ####[facility] [address] [place], [address] GAP Normal 5-15 [facility] Comment on above: Result Comment: Canc elled via OM: MD Ordered Performed By: #### L 100.0100, L500.2500 ####[facility] [address] [place], [address] Result Comment: Canc elled via OM: Order cancelled - Patient discharged Performed By: #### L 500.2500, L100.0100 ####[facility] [address] [place], [address] GLU Normal 70-99 [facility] Comment on above: Result Comment: Canc elled via OM: MD Ordered Performed By: #### L 100.0100, L500.2500 ####[facility] [address] [place], [address] Result Comment: Canc elled via OM: Order cancelled - Patient discharged Performed By: #### L 500.2500, L100.0100 ####[facility] [address] [place], [address] Potassium Normal 3.3-5.1 [facility] Comment on above: Result Comment: Canc elled via OM: MD Ordered Performed By: #### L 100.0100, L500.2500 ####[facility] [address] [place], [address] Result Comment: Canc elled via OM: Order cancelled - Patient discharged Performed By: #### L 500.2500, L100.0100 ####[facility] [address] [place], [address] Basic Metabolic Profile (BMP) Normal 133-145 [facility] Comment on above: Result Comment: Canc elled via OM: MD Ordered Performed By: #### L 100.0100, L500.2500 ####[facility] [address] [place], [address] Result Comment: Canc elled via OM: Order cancelled - Patient discharged Performed By: #### L 500.2500, L100.0100 ####[facility] [address] [place], [address] CBC W/Diff, Automatedon 08-0 8-2024 Absolute Neut Normal 2.0-7.7 [facility] Comment on above: Result Comment: Canc elled via OM: MD Ordered Performed By: #### L 100.0100, L500.2500 ####[facility] [address] [place], [address] Result Comment: Canc elled via OM: Order cancelled - Patient discharged Performed By: #### L 500.2500, L100.0100 ####[facility] [address] [place], [address] HCT Normal 37-47 [facility] Comment on above: Result Comment: Canc elled via OM: MD Ordered Performed By: #### L 100.0100, L500.2500 ####[facility] [address] [place], [address] Result Comment: Canc elled via OM: Order cancelled - Patient discharged Performed By: #### L 500.2500, L100.0100 ####[facility] [address] [place], [address] HGB Normal 12.0-15.0 [facility] Comment on above: Result Comment: Canc elled via OM: MD Ordered Performed By: #### L 100.0100, L500.2500 ####[facility] [address] [place], [address] Result Comment: Canc elled via OM: Order cancelled - Patient discharged Performed By: #### L 500.2500, L100.0100 ####[facility] [address] [place], [address] MCH Normal 27.0-32.0 [facility] Comment on above: Result Comment: Canc elled via OM: MD Ordered Performed By: #### L 100.0100, L500.2500 ####[facility] [address] [place], [address] Result Comment: Canc elled via OM: Order cancelled - Patient discharged Performed By: #### L 500.2500, L100.0100 ####[facility] [address] [place], [address] MCHC Normal 32-36 [facility] Comment on above: Result Comment: Canc elled via OM: MD Ordered Performed By: #### L 100.0100, L500.2500 ####[facility] [address] [place], [address] Result Comment: Canc elled via OM: Order cancelled - Patient discharged Performed By: #### L 500.2500, L100.0100 ####[facility] [address] [place], [address] MCV Normal 81-99 [facility] Comment on above: Result Comment: Canc elled via OM: MD Ordered Performed By: #### L 100.0100, L500.2500 ####[facility] [address] [place], [address] Result Comment: Canc elled via OM: Order cancelled - Patient discharged Performed By: #### L 500.2500, L100.0100 ####[facility] [address] [place], [address] NEUT% Normal 47-70 [facility] Comment on above: Result Comment: Canc elled via OM: MD Ordered Performed By: #### L 100.0100, L500.2500 ####[facility] [address] [place], [address] Result Comment: Canc elled via OM: Order cancelled - Patient discharged Performed By: #### L 500.2500, L100.0100 ####[facility] [address] [place], [address] PLT Normal 150-450 [facility] Comment on above: Result Comment: Canc elled via OM: MD Ordered Performed By: #### L 100.0100, L500.2500 ####[facility] [address] [place], [address] Result Comment: Canc elled via OM: Order cancelled - Patient discharged Performed By: #### L 500.2500, L100.0100 ####[facility] [address] [place], [address] RBC Normal 4.2-5.4 [facility] Comment on above: Result Comment: Canc elled via OM: MD Ordered Performed By: #### L 100.0100, L500.2500 ####[facility] [address] [place], [address] Result Comment: Canc elled via OM: Order cancelled - Patient discharged Performed By: #### L 500.2500, L100.0100 ####[facility] [address] [place], [address] RDW CV Normal 11.6-14.6 [facility] Comment on above: Result Comment: Canc elled via OM: MD Ordered Performed By: #### L 100.0100, L500.2500 ####[facility] [address] [place], [address] Result Comment: Canc elled via OM: Order cancelled - Patient discharged Performed By: #### L 500.2500, L100.0100 ####[facility] [address] [place], [address] RDW SD Normal 35.1-43.9 [facility] Comment on above: Result Comment: Canc elled via OM: MD Ordered Performed By: #### L 100.0100, L500.2500 ####[facility] [address] [place], [address] Result Comment: Canc elled via OM: Order cancelled - Patient discharged Performed By: #### L 500.2500, L100.0100 ####[facility] [address] [place], [address] WBC Normal 4.4-11.0 [facility] Comment on above: Result Comment: Canc elled via OM: MD Ordered Performed By: #### L 100.0100, L500.2500 ####[facility] [address] [place], [address] Result Comment: Canc elled via OM: Order cancelled - Patient discharged Performed By: #### L 500.2500, L100.0100 ####[facility] [address] [place], [address] Basic Metabolic Profile (BMP )on 12-07-2024 BUN Normal 4-19 [facility] Comment on above: Result Comment: Canc elled via OM: MD Ordered Performed By: #### L 100.0100, L500.2500 ####[facility] [address] [place], [address] Result Comment: Canc elled via OM: Order cancelled - Patient discharged Performed By: #### L 500.2500, L100.0100 ####[facility] [address] [place], [address] BUN/CRE Normal 10-20 [facility] Comment on above: Result Comment: Canc elled via OM: MD Ordered Performed By: #### L 100.0100, L500.2500 ####[facility] [address] [place], [address] Result Comment: Canc elled via OM: Order cancelled - Patient discharged Performed By: #### L 500.2500, L100.0100 ####[facility] [address] [place], [address] Calcium Normal 7.6-11.0 [facility] Comment on above: Result Comment: Canc elled via OM: MD Ordered Performed By: #### L 100.0100, L500.2500 ####[facility] [address] [place], [address] Result Comment: Canc elled via OM: Order cancelled - Patient discharged Performed By: #### L 500.2500, L100.0100 ####[facility] [address] [place], [address] CL Normal 98-108 [facility] Comment on above: Result Comment: Canc elled via OM: MD Ordered Performed By: #### L 100.0100, L500.2500 ####[facility] [address] [place], [address] Result Comment: Canc elled via OM: Order cancelled - Patient discharged Performed By: #### L 500.2500, L100.0100 ####[facility] [address] [place], [address] CO2 Normal 21.0-32.0 [facility] Comment on above: Result Comment: Canc elled via OM: MD Ordered Performed By: #### L 100.0100, L500.2500 ####[facility] [address] [place], [address] Result Comment: Canc elled via OM: Order cancelled - Patient discharged Performed By: #### L 500.2500, L100.0100 ####[facility] [address] [place], [address] CREAT,SERUM Normal 0.70-1.20 [facility] Comment on above: Result Comment: Canc elled via OM: MD Ordered Performed By: #### L 100.0100, L500.2500 ####[facility] [address] [place], [address] Result Comment: Canc elled via OM: Order cancelled - Patient discharged Performed By: #### L 500.2500, L100.0100 ####[facility] [address] [place], [address] eGFR Normal >60 [facility] Comment on above: Result Comment: Canc elled via OM: MD Ordered Performed By: #### L 100.0100, L500.2500 ####[facility] [address] [place], [address] Result Comment: Canc elled via OM: Order cancelled - Patient discharged Performed By: #### L 500.2500, L100.0100 ####[facility] [address] [place], [address] GAP Normal 5-15 [facility] Comment on above: Result Comment: Canc elled via OM: MD Ordered Performed By: #### L 100.0100, L500.2500 ####[facility] [address] [place], [address] Result Comment: Canc elled via OM: Order cancelled - Patient discharged Performed By: #### L 500.2500, L100.0100 ####[facility] [address] [place], [address] GLU Normal 70-99 [facility] Comment on above: Result Comment: Canc elled via OM: MD Ordered Performed By: #### L 100.0100, L500.2500 ####[facility] [address] [place], [address] Result Comment: Canc elled via OM: Order cancelled - Patient discharged Performed By: #### L 500.2500, L100.0100 ####[facility] [address] [place], [address] Potassium Normal 3.3-5.1 [facility] Comment on above: Result Comment: Canc elled via OM: MD Ordered Performed By: #### L 100.0100, L500.2500 ####[facility] [address] [place], [address] Result Comment: Canc elled via OM: Order cancelled - Patient discharged Performed By: #### L 500.2500, L100.0100 ####[facility] [address] [place], [address] Basic Metabolic Profile (BMP) Normal 133-145 [facility] Comment on above: Result Comment: Canc elled via OM: MD Ordered Performed By: #### L 100.0100, L500.2500 ####[facility] [address] [place], [address] Result Comment: Canc elled via OM: Order cancelled - Patient discharged Performed By: #### L 500.2500, L100.0100 ####[facility] [address] [place], [address] CBC W/Diff, Automatedon 08-0 Absolute Neut Normal 2.0-7.7 [facility] Comment on above: Result Comment: Canc elled via OM: MD Ordered Performed By: #### L 100.0100, L500.2500 ####[facility] [address] [place], [address] Result Comment: Canc elled via OM: Order cancelled - Patient discharged Performed By: #### L 500.2500, L100.0100 ####[facility] [address] [place], [address] HCT Normal 37-47 [facility] Comment on above: Result Comment: Canc elled via OM: MD Ordered Performed By: #### L 100.0100, L500.2500 ####[facility] [address] [place], [address] Result Comment: Canc elled via OM: Order cancelled - Patient discharged Performed By: #### L 500.2500, L100.0100 ####[facility] [address] [place], [address] HGB Normal 12.0-15.0 [facility] Comment on above: Result Comment: Canc elled via OM: MD Ordered Performed By: #### L 100.0100, L500.2500 ####[facility] [address] [place], [address] Result Comment: Canc elled via OM: Order cancelled - Patient discharged Performed By: #### L 500.2500, L100.0100 ####[facility] [address] [place], [address] MCH Normal 27.0-32.0 [facility] Comment on above: Result Comment: Canc elled via OM: MD Ordered Performed By: #### L 100.0100, L500.2500 ####[facility] [address] [place], [address] Result Comment: Canc elled via OM: Order cancelled - Patient discharged Performed By: #### L 500.2500, L100.0100 ####[facility] [address] [place], [address] MCHC Normal 32-36 [facility] Comment on above: Result Comment: Canc elled via OM: MD Ordered Performed By: #### L 100.0100, L500.2500 ####[facility] [address] [place], [address] Result Comment: Canc elled via OM: Order cancelled - Patient discharged Performed By: #### L 500.2500, L100.0100 ####[facility] [address] [place], [address] MCV Normal 81-99 [facility] Comment on above: Result Comment: Canc elled via OM: MD Ordered Performed By: #### L 100.0100, L500.2500 ####[facility] [address] [place], [address] Result Comment: Canc elled via OM: Order cancelled - Patient discharged Performed By: #### L 500.2500, L100.0100 ####[facility] [address] [place], [address] NEUT% Normal 47-70 [facility] Comment on above: Result Comment: Canc elled via OM: MD Ordered Performed By: #### L 100.0100, L500.2500 ####[facility] [address] [place], [address] Result Comment: Canc elled via OM: Order cancelled - Patient discharged Performed By: #### L 500.2500, L100.0100 ####[facility] [address] [place], [address] PLT Normal 150-450 [facility] Comment on above: Result Comment: Canc elled via OM: MD Ordered Performed By: #### L 100.0100, L500.2500 ####[facility] [address] [place], [address] Result Comment: Canc elled via OM: Order cancelled - Patient discharged Performed By: #### L 500.2500, L100.0100 ####[facility] [address] [place], [address] RBC Normal 4.2-5.4 [facility] Comment on above: Result Comment: Canc elled via OM: MD Ordered Performed By: #### L 100.0100, L500.2500 ####[facility] [address] [place], [address] Result Comment: Canc elled via OM: Order cancelled - Patient discharged Performed By: #### L 500.2500, L100.0100 ####[facility] [address] [place], [address] RDW CV Normal 11.6-14.6 [facility] Comment on above: Result Comment: Canc elled via OM: MD Ordered Performed By: #### L 100.0100, L500.2500 ####[facility] [address] [place], [address] Result Comment: Canc elled via OM: Order cancelled - Patient discharged Performed By: #### L 500.2500, L100.0100 ####[facility] [address] [place], [address] RDW SD Normal 35.1-43.9 [facility] Comment on above: Result Comment: Canc elled via OM: MD Ordered Performed By: #### L 100.0100, L500.2500 ####[facility] [address] [place], [place], [address] Result Comment: Canc elled via OM: Order cancelled - Patient discharged Performed By: #### L 500.2500, L100.0100 ####[facility] [address] [place], [address] WBC Normal 4.4-11.0 [facility] Comment on above: Result Comment: Canc elled via OM: MD Ordered Performed By: #### L 100.0100, L500.2500 ####[facility] [address] [place], [address] Result Comment: Canc elled via OM: Order cancelled - Patient discharged Performed By: #### L 500.2500, L100.0100 ####[facility] [address] [place], [address] Absolute lymphocyte countOrd ered By: Ajith Quiñones on 12-06-2024 Lymphocytes Auto (Unsp spec) [#/Vol] 0.89 10*3/uL 0.83-4.51 [facility] Absolute neutrophil countOrd ered By: Ajith Quiñones on 12-06-2024 Neutrophils (Bld) [#/Vol] 1.7 10*3/uL Low 2.0-7.7 [facility] Anion gap in Serum or Plasma Ordered By: Ajith Quiñones on 12-06-2024 Anion gap [Moles/Vol] 13 mmol/L 5-15 [facility] Automated lymphocyte count a s percentage of total leukocytesOrdered By: Ajtih Quiñones on 12-06-2024 Lymphocytes/100 WBC Auto (Unsp spec) 26.8 % -41 [facility] BUN/creatinine ratioOrdered By: Ajith Quiñones on 12-06-2024 Urea nitrogen/Creatinine [Mass ratio] 24.9 mg/mg High 10- [facility] Basic Metabolic Profile (BMP )on 12-06-2024 BUN/CRE 24.9 RATIO High 10- [facility] Comment on above: Performed By: #### L 100.0100, L501.2300, L500.2500, L501.5200 ####[facility] [address] [place], [address] Calcium [Mass/Vol] 8.4 mg/dL Normal 7.6-11.0 [facility] Comment on above: Performed By: #### L 100.0100, L501.2300, L500.2500, L501.5200 ####[facility] [address] [place], [address] Chloride [Moles/Vol] 104 mmol/L Normal 98-108 [facility] Comment on above: Performed By: #### L 100.0100, L501.2300, L500.2500, L501.5200 ####[facility] [address] [place], [address] CO2 [Moles/Vol] 17.8 mmol/L Low 21.0-32.0 [facility] Comment on above: Performed By: #### L 100.0100, L501.2300, L500.2500, L501.5200 ####[facility] [address] [place], [address] Creatinine [Mass/Vol] 1.14 mg/dL Normal 0.70-1.20 [facility] Comment on above: Performed By: #### L 100.0100, L501.2300, L500.2500, L501.5200 ####[facility] [address] [place], [address] ECRCL 27.31 ml/min Low 50-250 [facility] Comment on above: Performed By: #### L 100.0100, L501.2300, L500.2500, L501.5200 ####[facility] [address] [place], [address] GAP 13 Normal 5-15 [facility] Comment on above: Performed By: #### L 100.0100, L501.2300, L500.2500, L501.5200 ####[facility] [address] [place], [address] GFR/1.73 sq M.predicted among non-blacks MDRD (S/P/Bld) [Vol rate/Area] 46 mL/min/{1.73_m2} Low >60 [facility] Comment on above: Result Comment: mL/m in/1.73m2 CKD-EPI Creatinine Equation (2020) Performed By: #### L 100.0100, L501.2300, L500.2500, L501.5200 ####[facility] [address] [place], [address] Glucose [Mass/Vol] 83 mg/dL Normal 70-99 [facility] Comment on above: Performed By: #### L 100.0100, L501.2300, L500.2500, L501.5200 ####[facility] [address] [place], [address] Potassium [Moles/Vol] 4.2 mmol/L Normal 3.3-5.1 [facility] Comment on above: Result Comment: Hemo lysis present, Results??could be affected.?? Performed By: #### L 100.0100, L501.2300, L500.2500, L501.5200 ####[facility] [address] [place], [address] Sodium [Moles/Vol] 135 mmol/L Normal 133-145 [facility] Comment on above: Performed By: #### L 100.0100, L501.2300, L500.2500, L501.5200 ####[facility] [address] [place], [address] Urea nitrogen [Mass/Vol] 28 mg/dL High 4-19 [facility] Comment on above: Performed By: #### L 100.0100, L501.2300, L500.2500, L501.5200 ####[facility] [address] [place], [address] BUN Normal 4-19 [facility] Comment on above: Result Comment: Canc elled via OM: MD Ordered Performed By: #### L 100.0100, L500.2500 ####[facility] [address] [place], [address] BUN/CRE Normal 10-20 [facility] Comment on above: Result Comment: Canc elled via OM: MD Ordered Performed By: #### L 100.0100, L500.2500 ####[facility] [address] [place], [address] Calcium Normal 7.6-11.0 [facility] Comment on above: Result Comment: Canc elled via OM: MD Ordered Performed By: #### L 100.0100, L500.2500 ####[facility] [address] [place], [address] CL Normal 98-108 [facility] Comment on above: Result Comment: Canc elled via OM: MD Ordered Performed By: #### L 100.0100, L500.2500 ####[facility] [address] [place], [address] CO2 Normal 21.0-32.0 [facility] Comment on above: Result Comment: Canc elled via OM: MD Ordered Performed By: #### L 100.0100, L500.2500 ####[facility] [address] [place], [address] CREAT,SERUM Normal 0.70-1.20 [facility] Comment on above: Result Comment: Canc elled via OM: MD Ordered Performed By: #### L 100.0100, L500.2500 ####[facility] [address] [place], [address] eGFR Normal >60 [facility] Comment on above: Result Comment: Canc elled via OM: MD Ordered Performed By: #### L 100.0100, L500.2500 ####[facility] [address] [place], [address] GAP Normal 5-15 [facility] Comment on above: Result Comment: Canc elled via OM: MD Ordered Performed By: #### L 100.0100, L500.2500 ####[facility] [address] [place], [address] GLU Normal 70-99 [facility] Comment on above: Result Comment: Canc elled via OM: MD Ordered Performed By: #### L 100.0100, L500.2500 ####[facility] [address] [place], [address] Potassium Normal 3.3-5.1 [facility] Comment on above: Result Comment: Canc elled via OM: MD Ordered Performed By: #### L 100.0100, L500.2500 ####[facility] [address] [place], [address] Basic Metabolic Profile (BMP) Normal 133-145 [facility] Comment on above: Result Comment: Canc elled via OM: MD Ordered Performed By: #### L 100.0100, L500.2500 ####[facility] [address] [place], [address] Basophil percentageOrdered B y: Ajith Quiñones on 12-06-2024 Basophils/100 WBC (Bld) 0.6 % 0-1 [facility] CBC W/Diff, Automatedon Absolute Lymph 0.89 X10 3/uL Normal 0.83-4.51 [facility] Comment on above: Performed By: #### L 100.0100, L501.2300, L500.2500, L501.5200 ####[facility] [address] [place], [address] Absolute Neut 1.7 X10 3/uL Low 2.0-7.7 [facility] Comment on above: Performed By: #### L 100.0100, L501.2300, L500.2500, L501.5200 ####[facility] [address] [place], [address] Basophils/100 WBC (Bld) 0.6 % Normal 0-1 [facility] Comment on above: Performed By: #### L 100.0100, L501.2300, L500.2500, L501.5200 ####[facility] [address] [place], [address] Eosinophils/100 WBC (Bld) 2.7 % Normal 0-5 [facility] Comment on above: Performed By: #### L 100.0100, L501.2300, L500.2500, L501.5200 ####[facility] [address] [place], [address] Erythrocyte distribution width (RBC) [Ratio] 14.2 % Normal 11.6-14.6 [facility] Comment on above: Performed By: #### L 100.0100, L501.2300, L500.2500, L501.5200 ####[facility] [address] [place], [address] Hematocrit (Bld) [Volume fraction] 37.2 % Normal 37-47 [facility] Comment on above: Performed By: #### L 100.0100, L501.2300, L500.2500, L501.5200 ####[facility] [address] [place], [address] Hemoglobin (Bld) [Mass/Vol] 12.8 g/dL Normal 12.0-15.0 [facility] Comment on above: Performed By: #### L 100.0100, L501.2300, L500.2500, L501.5200 ####[facility] [address] [place], [address] IG% 0.600 Normal 0.0-0.9 [facility] Comment on above: Result Comment: IG% - Immature Granulocytes (promyelocytes, myelocytes andmetamyelocytes) > 1% indicates that a LEFT SHIFT is Present. Performed By: #### L 100.0100, L501.2300, L500.2500, L501.5200 ####[facility] [address] [place], [address] Lymphocytes/100 WBC (Bld) 26.8 % Normal 19-41 [facility] Comment on above: Performed By: #### L 100.0100, L501.2300, L500.2500, L501.5200 ####[facility] [address] [place], [address] MCH (RBC) [Entitic mass] 33.6 pg High 27.0-32.0 [facility] Comment on above: Performed By: #### L 100.0100, L501.2300, L500.2500, L501.5200 ####[facility] [address] [place], [address] MCHC (RBC) [Mass/Vol] 34.4 g/dL Normal 32-36 [facility] Comment on above: Performed By: #### L 100.0100, L501.2300, L500.2500, L501.5200 ####[facility] [address] [place], [address] MCV (RBC) [Entitic vol] 97.6 fL Normal 81-99 [facility] Comment on above: Performed By: #### L 100.0100, L501.2300, L500.2500, L501.5200 ####[facility] [address] [place], [address] Monocytes/100 WBC (Bld) 19.0 % High 0-10 [facility] Comment on above: Performed By: #### L 100.0100, L501.2300, L500.2500, L501.5200 ####[facility] [address] [place], [address] Neutrophils/100 WBC (Bld) 50.3 % Normal 47-70 [facility] Comment on above: Performed By: #### L 100.0100, L501.2300, L500.2500, L501.5200 ####[facility] [address] [place], [address] Nucleated RBC (Bld) [#/Vol] 0 10*3/uL Normal 0-5 [facility] Comment on above: Performed By: #### L 100.0100, L501.2300, L500.2500, L501.5200 ####[facility] [address] [place], [address] Platelet mean volume (Bld) [Entitic vol] 12.0 fL Normal 6.2-12.0 [facility] Comment on above: Performed By: #### L 100.0100, L501.2300, L500.2500, L501.5200 ####[facility] [address] [place], [address] Platelets (Bld) [#/Vol] 79 10*3/uL Low 150-450 [facility] Comment on above: Performed By: #### L 100.0100, L501.2300, L500.2500, L501.5200 ####[facility] [address] [place], [address] RBC (Bld) [#/Vol] 3.81 10*6/uL Low 4.2-5.4 [facility] Comment on above: Performed By: #### L 100.0100, L501.2300, L500.2500, L501.5200 ####[facility] [address] [place], [address] RDW SD 51.0 fl High 35.1-43.9 [facility] Comment on above: Performed By: #### L 100.0100, L501.2300, L500.2500, L501.5200 ####[facility] [address] [place], [address] WBC (Bld) [#/Vol] 3.3 10*3/uL Low 4.4-11.0 [facility] Comment on above: Performed By: #### L 100.0100, L501.2300, L500.2500, L501.5200 ####[facility] [address] [place], [address] Absolute Neut Normal 2.0-7.7 [facility] Comment on above: Result Comment: Canc elled via OM: MD Ordered Performed By: #### L 100.0100, L500.2500 ####[facility] [address] [place], [address] HCT Normal 37-47 [facility] Comment on above: Result Comment: Canc elled via OM: MD Ordered Performed By: #### L 100.0100, L500.2500 ####[facility] [address] [place], [address] HGB Normal 12.0-15.0 [facility] Comment on above: Result Comment: Canc elled via OM: MD Ordered Performed By: #### L 100.0100, L500.2500 ####[facility] [address] [place], [address] MCH Normal 27.0-32.0 [facility] Comment on above: Result Comment: Canc elled via OM: MD Ordered Performed By: #### L 100.0100, L500.2500 ####[facility] [address] [place], [address] MCHC Normal 32-36 [facility] Comment on above: Result Comment: Canc elled via OM: MD Ordered Performed By: #### L 100.0100, L500.2500 ####[facility] [address] [place], [address] MCV Normal 81-99 [facility] Comment on above: Result Comment: Canc elled via OM: MD Ordered Performed By: #### L 100.0100, L500.2500 ####[facility] [address] [place], [address] NEUT% Normal 47-70 [facility] Comment on above: Result Comment: Canc elled via OM: MD Ordered Performed By: #### L 100.0100, L500.2500 ####[facility] [address] [place], [address] PLT Normal 150-450 [facility] Comment on above: Result Comment: Canc elled via OM: MD Ordered Performed By: #### L 100.0100, L500.2500 ####[facility] [address] [place], [address] RBC Normal 4.2-5.4 [facility] Comment on above: Result Comment: Canc elled via OM: MD Ordered Performed By: #### L 100.0100, L500.2500 ####[facility] [address] [place], [address] RDW CV Normal 11.6-14.6 [facility] Comment on above: Result Comment: Canc elled via OM: MD Ordered Performed By: #### L 100.0100, L500.2500 ####[facility] [address] [place], [address] RDW SD Normal 35.1-43.9 [facility] Comment on above: Result Comment: Canc elled via OM: MD Ordered Performed By: #### L 100.0100, L500.2500 ####[facility] [address], [address] WBC Normal 4.4-11.0 [facility] Comment on above: Result Comment: Canc elled via OM: MD Ordered Performed By: #### L 100.0100, L500.2500 ####[facility] [address] [place], [address] Carbon dioxide, total [Moles /volume] in Central venous bloodOrdered By: Ajith Quiñones on 12-06-2024 CO2 [Moles/Vol] 17.8 mmol/L Low 21.0-32.0 [facility] Chloride assayOrdered By: Suraj Quiñones on 12-06-2024 Chloride [Moles/Vol] 104 mmol/L 98-108 [facility] Electrocardiogram reportOrde red By: Elias Arevalo on 12-06-2024 EKG study [facility] [address] [place] [address] 12 Lead EKG 12/02/24 1341 MR#: [id number] Acct: [id number] Name: ROBERTO FERGUSON Rep #:[id number] : 1935 89 From: Elias Arevalo MD Attending Dr: Dr. Ajith Quiñones MD Status: ADM IN Ordering Dr: Marga Butcher MD Date: Location: U Sex: F C Admitted: 12/02/24 Test Reason : DIZZY/ESTEFANIA Blood Pressure : */* mmHG Vent. Rate : 98 BPM Atrial Rate : 85 BPM P-R Int : * ms QRS Dur : 154 ms QT Int : 420 ms P-R-T Axes : * 188 -33 degrees QTcB Int : 536 ms Ventricular-paced rhythm with frequent atrial-paced complexes Abnormal ECG When compared with ECG of 30-Nov-2024 11:21, MANUAL COMPARISON REQUIRED DATA IS UNCONFIRMED Confirmed by ELIAS AREVALO MD ([id number]), sound editor CHERELLE BUENROSTRO ([id number]) on 12/06/2024 7:33:22 AM Referred By: Confirmed By: ELIAS AREVALO MD 12/06/24 0733 Date _ Elias Arevalo MD CC: Dr. Linda Mao MD; Dr. Ajith Quiñones MD; Dr. Marga Butcher MD ~ Signed [facility] Work Phone: Eosinophil percentageOrdered By: Ajith Quñiones on 12-06-2024 Eosinophils/100 WBC (Bld) 2.7 % 0-5 [facility] Erythrocyte distribution wid th ratioOrdered By: Ajith Quiñones on 12-06-2024 Erythrocyte distribution width (RBC) [Ratio] 14.2 % 11.6-14.6 [facility] Erythrocyte distribution wid th standard deviationOrdered By: Ajith Quiñones on 12-06-2024 Erythrocyte distribution width (RBC) [Ratio] 51.0 fl High 35.1-43.9 [facility] Glomerular filtration rate ( GFR) estimation/1.73 sq m using serum, plasma, or whole bOrdered By: Ajith Quiñones on 12-06-2024 GFR/1.73 sq M.predicted among non-blacks MDRD (S/P/Bld) [Vol rate/Area] 46 mL/min/{1.73_m2} Low >60 [facility] Comment on above: mL/min/1.73m2 CKD-EP I Creatinine Equation (2020) Hematocrit Auto (Bld) [Volum e fraction]Ordered By: Ajith Quiñones on 12-06-2024 Hematocrit (Bld) [Volume fraction] 37.2 % 37-47 [facility] Hemoglobin measurementOrdere d By: Ajith Quiñones on 12-06-2024 Hemoglobin (Bld) [Mass/Vol] 12.8 g/dL 12.0-15.0 [facility] Immature granulocytes/100 WB C Auto (Bld)Ordered By: Ajith Quiñones on 12-06-2024 Immature granulocytes/100 WBC (Bld) 0.600 % 0.0-0.9 [facility] Comment on above: IG% - Immature Granu locytes (promyelocytes, myelocytes and metamyelocytes) > 1% indicates that a LEFT SHIFT is Present. MCV (mean corpuscular volume ) determinationOrdered By: Ajith Quiñones on 12-06-2024 MCV (RBC) [Entitic vol] 97.6 fL 81-99 [facility] Magnesiumon 12-06-2024 Magnesium [Mass/Vol] 2.2 mg/dL Normal 1.5-2.2 [facility] Comment on above: Performed By: #### L 100.0100, L501.2300, L500.2500, L501.5200 ####[facility] [address] [place], [place], [id number] Magnesium measurement (mass/ volume)Ordered By: Ajith Quiñones on 12-06-2024 Magnesium (Unsp spec) [Mass/Vol] 2.2 mg/dL 1.5-2.2 [facility] Mean corpuscular hemoglobin (MCH) determinationOrdered By: Ajith Quiñones on 12-06-2024 MCH (RBC) [Entitic mass] 33.6 pg High 27.0-32.0 [facility] Mean corpuscular hemoglobin concentration (MCHC) determinationOrdered By: Ajith Quiñones on 12-06-2024 MCHC (RBC) [Mass/Vol] 34.4 g/dL 32-36 [facility] Mean platelet volume determi nationOrdered By: Ajith Quiñones on 12-06-2024 Platelet mean volume (Bld) [Entitic vol] 12.0 fL 6.2-12.0 [facility] Monocyte percentageOrdered B y: Ajith Quiñones on 12-06-2024 Monocytes/100 WBC (Bld) 19.0 % High 0-10 [facility] Neutrophil percentageOrdered By: Ajith Quiñones on 12-06-2024 Neutrophils/100 WBC (Bld) 50.3 % 47-70 [facility] Nucleated red blood cell per centageOrdered By: Ajith Quiñones on 12-06-2024 Nucleated RBC/100 WBC (Bld) [Ratio] 0 % 0-5 [facility] Phosphoruson 12-06-2024 Phosphate [Mass/Vol] 3.9 mg/dL Normal 2.7-4.5 [facility] Comment on above: Performed By: #### L 100.0100, L501.2300, L500.2500, L501.5200 ####[facility] [address] [place], [address] Platelet countOrdered By: Suraj Quiñones on 12-06-2024 Platelets (Bld) [#/Vol] 79 10*3/uL Low 150-450 [facility] Potassium measurement (mass/ volume)Ordered By: Ajith Quiñones on 12-06-2024 Potassium (Unsp spec) [Mass/Vol] 4.2 mmol/L 3.3-5.1 [facility] Comment on above: Hemolysis present, R esults could be affected. RBC Auto (Bld) [#/Vol]Ordere d By: Ajith Quiñones on 12-06-2024 RBC (Bld) [#/Vol] 3.81 10*6/uL Low 4.2-5.4 [facility] Serum creatinine measurement (mass/volume)Ordered By: Ajith Quiñones on 12-06-2024 Creatinine [Mass/Vol] 1.14 mg/dL 0.70-1.20 [facility] Serum glucose measurement (m ass/volume)Ordered By: Ajith Quiñones on 12-06-2024 Glucose [Mass/Vol] 83 mg/dL 70-99 [facility] Serum or plasma calcium criss urement (mass/volume)Ordered By: Ajith Quiñones on 12-06-2024 Calcium [Mass/Vol] 8.4 mg/dL 7.6-11.0 [facility] Serum or plasma urea nitroge n measurement (mass/volume)Ordered By: Ajith Quiñones on 12-06-2024 Urea nitrogen [Mass/Vol] 28 mg/dL High 4-19 [facility] Sodium levelOrdered By: Emil Quiñones on 12-06-2024 Sodium [Moles/Vol] 135 mmol/L 133-145 [facility] White blood cell (WBC) count Ordered By: Ajith Quiñones on 12-06-2024 WBC (Bld) [#/Vol] 3.3 10*3/uL Low 4.4-11.0 [facility] Basic Metabolic Profile (BMP )on 12-05-2024 BUN/CRE 21.1 RATIO High 10-20 [facility] Comment on above: Performed By: #### L 500.2500, L100.0500 ####[facility] [address] [place], [address] Calcium [Mass/Vol] 8.3 mg/dL Normal 7.6-11.0 [facility] Comment on above: Performed By: #### L 500.2500, L100.0500 ####[facility] [address] [place], [address] Chloride [Moles/Vol] 103 mmol/L Normal 98-108 [facility] Comment on above: Performed By: #### L 500.2500, L100.0500 ####[facility] [address] [place], [address] CO2 [Moles/Vol] 20.5 mmol/L Low 21.0-32.0 [facility] Comment on above: Performed By: #### L 500.2500, L100.0500 ####[facility] [address] [place], [address] Creatinine [Mass/Vol] 1.13 mg/dL Normal 0.70-1.20 [facility] Comment on above: Performed By: #### L 500.2500, L100.0500 ####[facility] [address] [place], [address] ECRCL 27.55 ml/min Low 50-250 [facility] Comment on above: Performed By: #### L 500.2500, L100.0500 ####[facility] [address] [place], [address] GAP 11 Normal 5-15 [facility] Comment on above: Performed By: #### L 500.2500, L100.0500 ####[facility] [address] [place], [address] GFR/1.73 sq M.predicted among non-blacks MDRD (S/P/Bld) [Vol rate/Area] 47 mL/min/{1.73_m2} Low >60 [facility] Comment on above: Result Comment: mL/m in/1.73m2 CKD-EPI Creatinine Equation (2020) Performed By: #### L 500.2500, L100.0500 ####[facility] [address] [place], [address] Glucose [Mass/Vol] 81 mg/dL Normal 70-99 [facility] Comment on above: Performed By: #### L 500.2500, L100.0500 ####[facility] [address] [place], [address] Potassium [Moles/Vol] 4.0 mmol/L Normal 3.3-5.1 [facility] Comment on above: Result Comment: Hemo lysis present, Results??could be affected.?? Performed By: #### L 500.2500, L100.0500 ####[facility] [address] [place], [address] Sodium [Moles/Vol] 134 mmol/L Normal 133-145 [facility] Comment on above: Performed By: #### L 500.2500, L100.0500 ####[facility] [address] [place], [address] Urea nitrogen [Mass/Vol] 24 mg/dL High 4-19 [facility] Comment on above: Performed By: #### L 500.2500, L100.0500 ####[facility] [address] [place], [address] BUN Normal 4-19 [facility] Comment on above: Result Comment: Price frausto via OM: Ordered Performed By: #### L 100.0100, L500.2500 ####[facility] [address] [place], [address] BUN/CRE Normal 10-20 [facility] Comment on above: Result Comment: Canc elled via OM: MD Ordered Performed By: #### L 100.0100, L500.2500 ####[facility] [address] [place], [address] Calcium Normal 7.6-11.0 [facility] Comment on above: Result Comment: Canc elled via OM: MD Ordered Performed By: #### L 100.0100, L500.2500 ####[facility] [address] [place], [address] CL Normal 98-108 [facility] Comment on above: Result Comment: Canc elled via OM: MD Ordered Performed By: #### L 100.0100, L500.2500 ####[facility] [address] [place], [address] CO2 Normal 21.0-32.0 [facility] Comment on above: Result Comment: Canc elled via OM: MD Ordered Performed By: #### L 100.0100, L500.2500 ####[facility] [address] [place], [address] CREAT,SERUM Normal 0.70-1.20 [facility] Comment on above: Result Comment: Canc elled via OM: MD Ordered Performed By: #### L 100.0100, L500.2500 ####[facility] [address] [place], [address] eGFR Normal >60 [facility] Comment on above: Result Comment: Canc elled via OM: MD Ordered Performed By: #### L 100.0100, L500.2500 ####[facility] [address] [place], [address] GAP Normal 5-15 [facility] Comment on above: Result Comment: Canc elled via OM: MD Ordered Performed By: #### L 100.0100, L500.2500 ####[facility] [address] [place], [address] GLU Normal 70-99 [facility] Comment on above: Result Comment: Canc elled via OM: MD Ordered Performed By: #### L 100.0100, L500.2500 ####[facility] [address] [place], [address] Potassium Normal 3.3-5.1 [facility] Comment on above: Result Comment: Canc elled via OM: MD Ordered Performed By: #### L 100.0100, L500.2500 ####[facility] [address] [place], [address] Basic Metabolic Profile (BMP) Normal 133-145 [facility] Comment on above: Result Comment: Canc elled via OM: MD Ordered Performed By: #### L 100.0100, L500.2500 ####[facility] [address] [place], [address] CBC W/Diff, Automatedon 08-0 -2024 Absolute Neut Normal 2.0-7.7 [facility] Comment on above: Result Comment: Canc elled via OM: MD Ordered Performed By: #### L 100.0100, L500.2500 ####[facility] [address] [place], [address] HCT Normal 37-47 [facility] Comment on above: Result Comment: Canc elled via OM: MD Ordered Performed By: #### L 100.0100, L500.2500 ####[facility] [address] [place], [address] HGB Normal 12.0-15.0 [facility] Comment on above: Result Comment: Canc elled via OM: MD Ordered Performed By: #### L 100.0100, L500.2500 ####[facility] [address] [place], [address] MCH Normal 27.0-32.0 [facility] Comment on above: Result Comment: Canc elled via OM: MD Ordered Performed By: #### L 100.0100, L500.2500 ####[facility] [address] [place], [address] MCHC Normal 32-36 [facility] Comment on above: Result Comment: Canc elled via OM: MD Ordered Performed By: #### L 100.0100, L500.2500 ####[facility] [address] [place], [address] MCV Normal 81-99 [facility] Comment on above: Result Comment: Canc elled via OM: MD Ordered Performed By: #### L 100.0100, L500.2500 ####[facility] [address] [place], [address] NEUT% Normal 47-70 [facility] Comment on above: Result Comment: Canc elled via OM: MD Ordered Performed By: #### L 100.0100, L500.2500 ####[facility] [address] [place], [address] PLT Normal 150-450 [facility] Comment on above: Result Comment: Canc elled via OM: MD Ordered Performed By: #### L 100.0100, L500.2500 ####[facility] [address] [place], [address] RBC Normal 4.2-5.4 [facility] Comment on above: Result Comment: Canc elled via OM: MD Ordered Performed By: #### L 100.0100, L500.2500 ####[facility] [address] [place], [address] RDW CV Normal 11.6-14.6 [facility] Comment on above: Result Comment: Canc elled via OM: MD Ordered Performed By: #### L 100.0100, L500.2500 ####[facility] [address] [place], [address] RDW SD Normal 35.1-43.9 [facility] Comment on above: Result Comment: Canc elled via OM: MD Ordered Performed By: #### L 100.0100, L500.2500 ####[facility] [address] [place], [address] WBC Normal 4.4-11.0 [facility] Comment on above: Result Comment: Canc elled via OM: MD Ordered Performed By: #### L 100.0100, L500.2500 ####[facility] [address] [place], [address] CBC-Complete Blood Cnt No Di ffon 12-05-2024 Erythrocyte distribution width (RBC) [Ratio] 14.3 % Normal 11.6-14.6 [facility] Comment on above: Performed By: #### L 500.2500, L100.0500 ####[facility] [address] [place], [address] Hematocrit (Bld) [Volume fraction] 38.2 % Normal 37-47 [facility] Comment on above: Performed By: #### L 500.2500, L100.0500 ####[facility] [address] [place], [address] Hemoglobin (Bld) [Mass/Vol] 13.2 g/dL Normal 12.0-15.0 [facility] Comment on above: Performed By: #### L 500.2500, L100.0500 ####[facility] [address] [place], [address] MCH (RBC) [Entitic mass] 33.5 pg High 27.0-32.0 [facility] Comment on above: Performed By: #### L 500.2500, L100.0500 ####[facility] [address] [place], [address] MCHC (RBC) [Mass/Vol] 34.6 g/dL Normal 32-36 [facility] Comment on above: Performed By: #### L 500.2500, L100.0500 ####[facility] [address] [place], [address] MCV (RBC) [Entitic vol] 97.0 fL Normal 81-99 [facility] Comment on above: Performed By: #### L 500.2500, L100.0500 ####[facility] [address] [place], [address] Platelet mean volume (Bld) [Entitic vol] 12.1 fL High 6.2-12.0 [facility] Comment on above: Performed By: #### L 500.2500, L100.0500 ####[facility] [address] [place], [address] Platelets (Bld) [#/Vol] 87 10*3/uL Low 150-450 [facility] Comment on above: Performed By: #### L 500.2500, L100.0500 ####[facility] [address] [place], [address] RBC (Bld) [#/Vol] 3.94 10*6/uL Low 4.2-5.4 [facility] Comment on above: Performed By: #### L 500.2500, L100.0500 ####[facility] [address] [place], [address] RDW SD 50.7 fl High 35.1-43.9 [facility] Comment on above: Performed By: #### L 500.2500, L100.0500 ####[facility] [address] [place], [address] WBC (Bld) [#/Vol] 3.1 10*3/uL Low 4.4-11.0 [facility] Comment on above: Performed By: #### L 500.2500, L100.0500 ####[facility] [address] [place], [address] Magnetic resonance imaging r eportOrdered By: Susana Amato on 12-05-2024 Study report [facility] Services [address] [place] [address] Spine Cervical (Routine) MR#: [id number] Acct: [id number] Name: ROBERTO FERGUSON Rep #: [id number] : 1935 F 89 From: Indra Amato MD PCP: Dr. Linda Mao MD Status: ADM IN Study:Spine Cervical (Routine) Date of Exam: 12/05/24 Exam# [id number] Ordering Dr: Sean Turner DO PROCEDURE: SPINE CERVICAL (ROUTINE) 12/05/2024 REASON FOR EXAM: ABNORMAL CT C-SPINE W/ ONGOING NEURO ISSUES TECHNIQUE: SPINE CERVICAL (ROUTINE) Multiplanar and multisequence images were obtained without IV contrast administration. COMPARISON: None. FINDINGS: Vertebrae: Cervical vertebral body heights are preserved. Bone marrow signal is unremarkable. Alignment: Anterolisthesis C4 on C5 and C5 on C6 by 3 mm and 2 mm consecutively. Spinal Cord: Cervical spinal cord is of normal size and signal intensities. Structures at the foramen magnum are unremarkable. C2-3: Facet joint arthropathy with fluid effusion. No foramina stenosis. Mild canal stenosis. C3-4: Facet joints arthropathy. No significant foraminal or canal stenosis. C4-5: Anterolisthesis by 3 mm. Facet joint arthropathy. Uncovertebral hypertrophy. Moderate right and mild left foramina stenosis. Moderate canal stenosis. C5-6: Anterolisthesis by 2 mm. Uncovertebral hypertrophy. Mild canal stenosis. No significant foraminal stenosis. C6-7: Disc desiccation. Disc bulge. Facet joint arthropathy. No significant foraminal stenosis. Mild canal stenosis. C7-T1: Unremarkable Right lung pleural effusion with airspace opacity, indeterminate. Please correlate with chest x-ray or CT chest. 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 Moderate right foramina stenosis at C4-C5. Right lung pleural effusion with airspace opacity, indeterminate. Please correlate with chest x-ray or CT chest. Reading Location: [facility] CC: Dr. Sean Thornton DO; Dr. Linda Mao MD ~ Clamp Operator: Signed [facility] Spine Cervical (Routine)on 0 12-05-2024 Spine Cervical (Routine) Normal [facility] Absolute lymphocyte countOrd ered By: Marga Butcher on 12-04-2024 Lymphocytes Auto (Unsp spec) [#/Vol] 1.16 10*3/uL 0.83-4.51 [facility] Absolute neutrophil countOrd ered By: Marga Butcher on 12-04-2024 Neutrophils (Bld) [#/Vol] 1.4 10*3/uL Low 2.0-7.7 [facility] Anion gap in Serum or Plasma Ordered By: Marga Butcher on 12-04-2024 Anion gap [Moles/Vol] 12 mmol/L 5-15 [facility] Automated lymphocyte count a s percentage of total leukocytesOrdered By: Marga Butcher on 12-04-2024 Lymphocytes/100 WBC Auto (Unsp spec) 35.9 % 19-41 [facility] BUN/creatinine ratioOrdered By: Marga Butcher on 12-04-2024 Urea nitrogen/Creatinine [Mass ratio] 19.9 mg/mg 10-20 [facility] Basic Metabolic Profile (BMP )on 12-04-2024 BUN/CRE 19.9 RATIO Normal 10-20 [facility] Comment on above: Performed By: #### L 100.0100, L500.2500 ####[facility] [address] [place], [place], [address] Calcium [Mass/Vol] 8.3 mg/dL Normal 7.6-11.0 [facility] Comment on above: Performed By: #### L 100.0100, L500.2500 ####[facility] [address] [place], [address] Chloride [Moles/Vol] 102 mmol/L Normal 98-108 [facility] Comment on above: Performed By: #### L 100.0100, L500.2500 ####[facility] [address] [place], [address] CO2 [Moles/Vol] 19.7 mmol/L Low 21.0-32.0 [facility] Comment on above: Performed By: #### L 100.0100, L500.2500 ####[facility] [address] [place], [address] Creatinine [Mass/Vol] 1.14 mg/dL Normal 0.70-1.20 [facility] Comment on above: Performed By: #### L 100.0100, L500.2500 ####[facility] [address] [place], [address] ECRCL 27.31 ml/min Low 50-250 [facility] Comment on above: Performed By: #### L 100.0100, L500.2500 ####[facility] [address] [place], [address] GAP 12 Normal 5-15 [facility] Comment on above: Performed By: #### L 100.0100, L500.2500 ####[facility] [address] [place], [address] GFR/1.73 sq M.predicted among non-blacks MDRD (S/P/Bld) [Vol rate/Area] 46 mL/min/{1.73_m2} Low >60 [facility] Comment on above: Result Comment: mL/m in/1.73m2 CKD-EPI Creatinine Equation (2020) Performed By: #### L 100.0100, L500.2500 ####[facility] [address] [place], [address] Glucose [Mass/Vol] 88 mg/dL Normal 70-99 [facility] Comment on above: Performed By: #### L 100.0100, L500.2500 ####[facility] [address] [place], [address] Potassium [Moles/Vol] 4.2 mmol/L Normal 3.3-5.1 [facility] Comment on above: Performed By: #### L 100.0100, L500.2500 ####[facility] [address] [place], [address] Sodium [Moles/Vol] 133 mmol/L Normal 133-145 [facility] Comment on above: Performed By: #### L 100.0100, L500.2500 ####[facility] [address] [place], [address] Urea nitrogen [Mass/Vol] 23 mg/dL High 4-19 [facility] Comment on above: Performed By: #### L 100.0100, L500.2500 ####[facility] [address] [place], [address] Basophil percentageOrdered B y: Marga Butcher on 12-04-2024 Basophils/100 WBC (Bld) 0.6 % 0-1 [facility] CBC W/Diff, Automatedon Absolute Lymph 1.16 X10 3/uL Normal 0.83-4.51 [facility] Comment on above: Performed By: #### L 100.0100, L500.2500 ####[facility] [address] [place], [address] Absolute Neut 1.4 X10 3/uL Low 2.0-7.7 [facility] Comment on above: Performed By: #### L 100.0100, L500.2500 ####[facility] [address] [place], [address] Basophils/100 WBC (Bld) 0.6 % Normal 0-1 [facility] Comment on above: Performed By: #### L 100.0100, L500.2500 ####[facility] [address] [place], [address] Eosinophils/100 WBC (Bld) 2.8 % Normal 0-5 [facility] Comment on above: Performed By: #### L 100.0100, L500.2500 ####[facility] [address] [place], [address] Erythrocyte distribution width (RBC) [Ratio] 14.4 % Normal 11.6-14.6 [facility] Comment on above: Performed By: #### L 100.0100, L500.2500 ####[facility] [address] [place], [address] Hematocrit (Bld) [Volume fraction] 39.5 % Normal 37-47 [facility] Comment on above: Performed By: #### L 100.0100, L500.2500 ####[facility] [address] [place], [address] Hemoglobin (Bld) [Mass/Vol] 13.6 g/dL Normal 12.0-15.0 [facility] Comment on above: Performed By: #### L 100.0100, L500.2500 ####[facility] [address] [place], [address] IG% 0.300 Normal 0.0-0.9 [facility] Comment on above: Result Comment: IG% - Immature Granulocytes (promyelocytes, myelocytes andmetamyelocytes) > 1% indicates that a LEFT SHIFT is Present. Performed By: #### L 100.0100, L500.2500 ####[facility] [address] [place], [address] Lymphocytes/100 WBC (Bld) 35.9 % Normal 19-41 [facility] Comment on above: Performed By: #### L 100.0100, L500.2500 ####[facility] [address] [place], [address] MCH (RBC) [Entitic mass] 33.3 pg High 27.0-32.0 [facility] Comment on above: Performed By: #### L 100.0100, L500.2500 ####[facility] [address] [place], [address] MCHC (RBC) [Mass/Vol] 34.4 g/dL Normal 32-36 [facility] Comment on above: Performed By: #### L 100.0100, L500.2500 ####[facility] [address] [place], [address] MCV (RBC) [Entitic vol] 96.6 fL Normal 81-99 [facility] Comment on above: Performed By: #### L 100.0100, L500.2500 ####[facility] [address] [place], [address] Monocytes/100 WBC (Bld) 16.1 % High 0-10 [facility] Comment on above: Performed By: #### L 100.0100, L500.2500 ####[facility] [address] [place], [address] Neutrophils/100 WBC (Bld) 44.3 % Low 47-70 [facility] Comment on above: Performed By: #### L 100.0100, L500.2500 ####[facility] [address] [place], [address] Nucleated RBC (Bld) [#/Vol] 0 10*3/uL Normal 0-5 [facility] Comment on above: Performed By: #### L 100.0100, L500.2500 ####[facility] [address] [place], [address] Platelet mean volume (Bld) [Entitic vol] 11.9 fL Normal 6.2-12.0 [facility] Comment on above: Performed By: #### L 100.0100, L500.2500 ####[facility] [address] [place], [address] Platelets (Bld) [#/Vol] 91 10*3/uL Low 150-450 [facility] Comment on above: Performed By: #### L 100.0100, L500.2500 ####[facility] [address] [place], [address] RBC (Bld) [#/Vol] 4.09 10*6/uL Low 4.2-5.4 [facility] Comment on above: Performed By: #### L 100.0100, L500.2500 ####[facility] [address] [place], [address] RDW SD 50.8 fl High 35.1-43.9 [facility] Comment on above: Performed By: #### L 100.0100, L500.2500 ####[facility] [address] [place], [address] WBC (Bld) [#/Vol] 3.2 10*3/uL Low 4.4-11.0 [facility] Comment on above: Performed By: #### L 100.0100, L500.2500 ####[facility] [address] [place], [address] Carbon dioxide, total [Moles /volume] in Central venous bloodOrdered By: Marga Butcher on 12-04-2024 CO2 [Moles/Vol] 19.7 mmol/L Low 21.0-32.0 [facility] Chloride assayOrdered By: Wisam Butcher on 12-04-2024 Chloride [Moles/Vol] 102 mmol/L 98-108 [facility] Duplex ultrasound of carotid artery reportOrdered By: Michael Wright on 12-04-2024 Study report [facility] [address] [place] [address] Carotid Duplex Ultrasound 12/04/24 0834 MR#: [id number] Acct: [id number] Name: ROBERTO FERGUSON Rep #:[id number] : 1935 89 From: Michael Akins Attending Dr: Dr. Sean Thornton, DO Status: ADM IN Ordering Dr: Marga Butcher MD Date: Location: [facility] Sex: F C Admitted: 12/02/24 Reason For Study Reason For Study: Presyncope Rt. Velocities/BP Lt. Velocities/BP Prox CCA 47/9 cm/sec. Prox CCA 41/6 cm/sec. Mid CCA 33/8 cm/sec. Mid CCA 39/6 cm/sec. Dist CCA 29/7 cm/sec. Dist CCA 39/8 cm/sec. Prox ICA 41/11 cm/sec. Prox ICA 33/10 cm/sec. Mid ICA 74/20 cm/sec. Mid ICA 52/12 cm/sec. Dist ICA 59/18 cm/sec. Dist ICA 111/23 cm/sec. Rt. ICA/CCA = 2.3. Lt. ICA/CCA = 2.8. Prox ECA 24/0 cm/sec. Prox ECA 52/0 cm/sec. Rt. Vert. 42/7 cm/sec. Lt. Vert. 39/9 cm/sec. Right Extracranial There is heterogeneous, irregular atherosclerotic plaque noted in the right common carotid artery. There is heterogeneous, irregular atherosclerotic plaque noted in the right internal carotid artery. The right internal carotid artery is very tortuous. There is no significant atherosclerotic plaque noted inthe right external carotid artery. Antegrade flow is noted in the right vertebral artery. Left Extracranial There is intimal thickening but no significant atherosclerotic plaque noted in the left common carotid artery. There is heterogeneous, irregular atherosclerotic plaque noted in the left internal carotid artery. There is intimal thickening but no significant atherosclerotic plaque noted in the left external carotid artery. Antegrade flow is noted in the left vertebral artery. Procedure Carotid Duplex 14437. This is a Carotid Duplex examination using B-mode, color flow and specral Doppler. Exam performed portable in patient room. VL/Carotid Duplex Ultrasound Interpretation Summary Mild (<50%) stenosis right extracranial internal carotid. Mild (<50%) stenosis left extracranial internal carotid. Patent and antegrade vertebrals bilaterally. Ordering Physician: Marga Butcher Referring Physician: Linda Mao Performed By: Gianna Londono RDCS, RVT 12/04/24 1649 Date _ Michael Wright MD CC: Dr. Sean Thornton DO; Dr. Linda Mao MD; Dr. Marga Butcher MD ~ Date Dictated: 12/04/24833 Date Transcribed: 12/04/241648 Clamp Operator: Signed [facility] Work Phone: Electrocardiogram reportOrde red By: Elias Arevalo on 12-04-2024 EKG study [facility] [address] [place] [address] 12 Lead EKG 11/30/24 1121 MR#: [id number] Acct: [id number] Name: ROBERTO FERGUSON Rep #:[id number] : 1935 89 From: Elias Arevalo MD Attending Dr: Dr. Sean Thornton DO Status: ADM IN Ordering Dr: Nikos Lake MD Date: Location: U Sex: F C Admitted: 12/02/24 Test Reason : FALL Blood Pressure : */* mmHG Vent. Rate : 60 BPM Atrial Rate : 60 BPM P-R Int : 196 ms QRS Dur : 160 ms QT Int : 478 ms P-R-T Axes : 61 243 15 degrees QTcB Int : 478 ms AV dual-paced rhythm Abnormal ECG Confirmed by IRINA LOPES, ELIAS ([id number]), sound editor CHERELLE BUENROSTRO ([id number]) on 12/04/2024 8:18:51 AM Referred By: Confirmed By: ELIAS AREVALO MD 12/04/24817 Date _ Elias Arevalo MD CC: Dr. Nikos Lake MD; Dr. Sean Thornton DO; Dr. Linda Mao MD ~ Signed [facility] Work Phone: Eosinophil percentageOrdered By: Marga Butcher on 12-04-2024 Eosinophils/100 WBC (Bld) 2.8 % 0-5 [facility] Erythrocyte distribution wid th ratioOrdered By: Marga Butcher on 12-04-2024 Erythrocyte distribution width (RBC) [Ratio] 14.4 % 11.6-14.6 [facility] Erythrocyte distribution wid th standard deviationOrdered By: Marga Butcher on 12-04-2024 Erythrocyte distribution width (RBC) [Ratio] 50.8 fl High 35.1-43.9 [facility] Glomerular filtration rate ( GFR) estimation/1.73 sq m using serum, plasma, or whole bOrdered By: Marga Butcher on 12-04-2024 GFR/1.73 sq M.predicted among non-blacks MDRD (S/P/Bld) [Vol rate/Area] 46 mL/min/{1.73_m2} Low >60 [facility] Comment on above: mL/min/1.73m2 CKD-EP I Creatinine Equation (2020) Hematocrit Auto (Bld) [Volum e fraction]Ordered By: Marga Butcher on 12-04-2024 Hematocrit (Bld) [Volume fraction] 39.5 % 37-47 [facility] Hemoglobin measurementOrdere d By: Marga Butcher on 12-04-2024 Hemoglobin (Bld) [Mass/Vol] 13.6 g/dL 12.0-15.0 [facility] Immature granulocytes/100 WB C Auto (Bld)Ordered By: Marga Butcher on 12-04-2024 Immature granulocytes/100 WBC (Bld) 0.300 % 0.0-0.9 [facility] Comment on above: IG% - Immature Granu locytes (promyelocytes, myelocytes and metamyelocytes) > 1% indicates that a LEFT SHIFT is Present. MCV (mean corpuscular volume ) determinationOrdered By: Marga Butcher on 12-04-2024 MCV (RBC) [Entitic vol] 96.6 fL 81-99 [facility] Mean corpuscular hemoglobin (MCH) determinationOrdered By: Marga Butcher on 12-04-2024 MCH (RBC) [Entitic mass] 33.3 pg High 27.0-32.0 [facility] Mean corpuscular hemoglobin concentration (MCHC) determinationOrdered By: Marga Butcher on 12-04-2024 MCHC (RBC) [Mass/Vol] 34.4 g/dL 32-36 [facility] Mean platelet volume determi nationOrdered By: Marga Butcher on 12-04-2024 Platelet mean volume (Bld) [Entitic vol] 11.9 fL 6.2-12.0 [facility] Monocyte percentageOrdered B y: Marga Butcher on 12-04-2024 Monocytes/100 WBC (Bld) 16.1 % High 0-10 [facility] Neutrophil percentageOrdered By: Marga Butcher on 12-04-2024 Neutrophils/100 WBC (Bld) 44.3 % Low 47-70 [facility] Nucleated red blood cell per centageOrdered By: Marga Butcher on 12-04-2024 Nucleated RBC/100 WBC (Bld) [Ratio] 0 % 0-5 [facility] Pacemaker Checkon 12-04-2024 Pacemaker Check Normal [facility] Platelet countOrdered By: Wisam Butcher on 12-04-2024 Platelets (Bld) [#/Vol] 91 10*3/uL Low 150-450 [facility] Potassium measurement (mass/ volume)Ordered By: Marga Butcher on 12-04-2024 Potassium (Unsp spec) [Mass/Vol] 4.2 mmol/L 3.3-5.1 [facility] RBC Auto (Bld) [#/Vol]Ordere d By: Marga Butcher on 12-04-2024 RBC (Bld) [#/Vol] 4.09 10*6/uL Low 4.2-5.4 [facility] Serum creatinine measurement (mass/volume)Ordered By: Marga Butcher on 12-04-2024 Creatinine [Mass/Vol] 1.14 mg/dL 0.70-1.20 [facility] Serum glucose measurement (m ass/volume)Ordered By: Marga Butcher on 12-04-2024 Glucose [Mass/Vol] 88 mg/dL 70-99 [facility] Serum or plasma calcium criss urement (mass/volume)Ordered By: Marga Butcher on 12-04-2024 Calcium [Mass/Vol] 8.3 mg/dL 7.6-11.0 [facility] Serum or plasma urea nitroge n measurement (mass/volume)Ordered By: Marga Butcher on 12-04-2024 Urea nitrogen [Mass/Vol] 23 mg/dL High 4-19 [facility] Sodium levelOrdered By: Usman Butcher on 12-04-2024 Sodium [Moles/Vol] 133 mmol/L 133-145 [facility] White blood cell (WBC) count Ordered By: Marga Butcher on 12-04-2024 WBC (Bld) [#/Vol] 3.2 10*3/uL Low 4.4-11.0 [facility] Basic Metabolic Profile (BMP )on 12-03-2024 BUN/CRE 20.1 RATIO High 10-20 [facility] Comment on above: Performed By: #### L 100.0100, L501.5200, L500.2500 ####[facility] [address] [place], [address] Calcium [Mass/Vol] 8.2 mg/dL Normal 7.6-11.0 [facility] Comment on above: Performed By: #### L 100.0100, L501.5200, L500.2500 ####[facility] [address] [place], [address] Chloride [Moles/Vol] 106 mmol/L Normal 98-108 [facility] Comment on above: Performed By: #### L 100.0100, L501.5200, L500.2500 ####[facility] [address] [place], [address] CO2 [Moles/Vol] 21.0 mmol/L Normal 21.0-32.0 [facility] Comment on above: Performed By: #### L 100.0100, L501.5200, L500.2500 ####[facility] [address] [place], [address] Creatinine [Mass/Vol] 0.99 mg/dL Normal 0.70-1.20 [facility] Comment on above: Performed By: #### L 100.0100, L501.5200, L500.2500 ####[facility] [address] [place], [address] ECRCL 31.45 ml/min Low 50-250 [facility] Comment on above: Performed By: #### L 100.0100, L501.5200, L500.2500 ####[facility] [address] [place], [address] GAP 10 Normal 5-15 [facility] Comment on above: Performed By: #### L 100.0100, L501.5200, L500.2500 ####[facility] [address] [place], [address] GFR/1.73 sq M.predicted among non-blacks MDRD (S/P/Bld) [Vol rate/Area] 55 mL/min/{1.73_m2} Low >60 [facility] Comment on above: Result Comment: mL/m in/1.73m2 CKD-EPI Creatinine Equation (2020) Performed By: #### L 100.0100, L501.5200, L500.2500 ####[facility] [address] [place], [address] Glucose [Mass/Vol] 101 mg/dL High 70-99 [facility] Comment on above: Performed By: #### L 100.0100, L501.5200, L500.2500 ####[facility] [address] [place], [address] Potassium [Moles/Vol] 4.0 mmol/L Normal 3.3-5.1 [facility] Comment on above: Performed By: #### L 100.0100, L501.5200, L500.2500 ####[facility] [address] [place], [address] Sodium [Moles/Vol] 137 mmol/L Normal 133-145 [facility] Comment on above: Performed By: #### L 100.0100, L501.5200, L500.2500 ####[facility] [address] [place], [address] Urea nitrogen [Mass/Vol] 20 mg/dL High 4-19 [facility] Comment on above: Performed By: #### L 100.0100, L501.5200, L500.2500 ####[facility] [address] [place], [address] CBC W/Diff, Automatedon 08-0 PLT EST MOD DEC Normal ADEQ [facility] Comment on above: Performed By: #### L 100.0100, L501.5200, L500.2500 ####[facility] [address] [place], [address] Carotid Duplex Ultrasoundon 12-03-2024 Carotid Duplex Ultrasound Normal [facility] Consultation - Cardiologyon 12-03-2024 Consultation - Cardiology Normal [facility] Magnesiumon 12-03-2024 Magnesium [Mass/Vol] 2.3 mg/dL High 1.5-2.2 [facility] Comment on above: Performed By: #### L 100.0100, L501.5200, L500.2500 ####[facility] [address] [place], [address] Magnesium measurement (mass/ volume)Ordered By: Marga Butcher on 12-03-2024 Magnesium (Unsp spec) [Mass/Vol] 2.3 mg/dL High 1.5-2.2 [facility] Platelet estimateOrdered By: Marga Butcher on 12-03-2024 Platelets LM Ql (Bld) MOD DEC ADEQ [facility] Urine Cultureon 12-03-2024 URC #1, 2 Below infectio n level. Presumptive E. coli [place] Count 1000-10,000 Mixed Gram Positive Organisms Mixed Gram Positive Organisms MIXC Mixed contaminants. Submit a new specimen if indicated. Normal [facility] Comment on above: Performed By: #### M 100.2200, L400.0001 ####[facility] [address] [place], [address] 12 Lead EKGon 12-02-2024 12 Lead EKG Normal [facility] Basic Metabolic Profile (BMP )on 12-02-2024 BUN/CRE 18.7 RATIO Normal 10-20 [facility] Comment on above: Performed By: #### L 100.0100, L500.2500 ####[facility] [address] [place], [address] Calcium [Mass/Vol] 8.0 mg/dL Normal 7.6-11.0 [facility] Comment on above: Performed By: #### L 100.0100, L500.2500 ####[facility] [address] [place], [address] Chloride [Moles/Vol] 107 mmol/L Normal 98-108 [facility] Comment on above: Performed By: #### L 100.0100, L500.2500 ####[facility] [address] [place], [address] CO2 [Moles/Vol] 22.1 mmol/L Normal 21.0-32.0 [facility] Comment on above: Performed By: #### L 100.0100, L500.2500 ####[facility] [address] [place], [address] Creatinine [Mass/Vol] 1.08 mg/dL Normal 0.70-1.20 [facility] Comment on above: Performed By: #### L 100.0100, L500.2500 ####[facility] [address] [place], [address] ECRCL 28.83 ml/min Low 50-250 [facility] Comment on above: Performed By: #### L 100.0100, L500.2500 ####[facility] [address] [place], [address] GAP 10 Normal 5-15 [facility] Comment on above: Performed By: #### L 100.0100, L500.2500 ####[facility] [address] [place], [address] GFR/1.73 sq M.predicted among non-blacks MDRD (S/P/Bld) [Vol rate/Area] 49 mL/min/{1.73_m2} Low >60 [facility] Comment on above: Result Comment: mL/m in/1.73m2 CKD-EPI Creatinine Equation (2020) Performed By: #### L 100.0100, L500.2500 ####[facility] [address] [place], [address] Glucose [Mass/Vol] 91 mg/dL Normal 70-99 [facility] Comment on above: Performed By: #### L 100.0100, L500.2500 ####[facility] [address] [place], [address] Potassium [Moles/Vol] 4.3 mmol/L Normal 3.3-5.1 [facility] Comment on above: Performed By: #### L 100.0100, L500.2500 ####[facility] [address] [place], [address] Sodium [Moles/Vol] 139 mmol/L Normal 133-145 [facility] Comment on above: Performed By: #### L 100.0100, L500.2500 ####[facility] [address] [place], [address] Urea nitrogen [Mass/Vol] 20 mg/dL High 4-19 [facility] Comment on above: Performed By: #### L 100.0100, L500.2500 ####[facility] [address] [place], [address] CBC W/Diff, Automatedon 08-0 2-2025 Absolute Lymph 1.07 X10 3/uL Normal 0.83-4.51 [facility] Comment on above: Performed By: #### L 100.0100, L500.2500 ####[facility] [address] [place], [address] Absolute Neut 1.0 X10 3/uL Low 2.0-7.7 [facility] Comment on above: Performed By: #### L 100.0100, L500.2500 ####[facility] [address] [place], [address] Basophils/100 WBC (Bld) 0.8 % Normal 0-1 [facility] Comment on above: Performed By: #### L 100.0100, L500.2500 ####[facility] [address] [place], [address] Eosinophils/100 WBC (Bld) 2.3 % Normal 0-5 [facility] Comment on above: Performed By: #### L 100.0100, L500.2500 ####[facility] [address] [place], [address] Erythrocyte distribution width (RBC) [Ratio] 14.5 % Normal 11.6-14.6 [facility] Comment on above: Performed By: #### L 100.0100, L500.2500 ####[facility] [address] [place], [address] Hematocrit (Bld) [Volume fraction] 40.1 % Normal 37-47 [facility] Comment on above: Performed By: #### L 100.0100, L500.2500 ####[facility] [address] [place], [address] Hemoglobin (Bld) [Mass/Vol] 13.8 g/dL Normal 12.0-15.0 [facility] Comment on above: Performed By: #### L 100.0100, L500.2500 ####[facility] [address] [place], [address] IG% 0.000 Normal 0.0-0.9 [facility] Comment on above: Result Comment: IG% - Immature Granulocytes (promyelocytes, myelocytes andmetamyelocytes) > 1% indicates that a LEFT SHIFT is Present. Performed By: #### L 100.0100, L500.2500 ####[facility] [address] [place], [address] Lymphocytes/100 WBC (Bld) 40.7 % Normal 19-41 [facility] Comment on above: Performed By: #### L 100.0100, L500.2500 ####[facility] [address] [place], [address] MCH (RBC) [Entitic mass] 33.3 pg High 27.0-32.0 [facility] Comment on above: Performed By: #### L 100.0100, L500.2500 ####[facility] [address] [place], [address] MCHC (RBC) [Mass/Vol] 34.4 g/dL Normal 32-36 [facility] Comment on above: Performed By: #### L 100.0100, L500.2500 ####[facility] [address] [place], [address] MCV (RBC) [Entitic vol] 96.6 fL Normal 81-99 [facility] Comment on above: Performed By: #### L 100.0100, L500.2500 ####[facility] [address] [place], [address] Monocytes/100 WBC (Bld) 17.1 % High 0-10 [facility] Comment on above: Performed By: #### L 100.0100, L500.2500 ####[facility] [address] [place], [address] Neutrophils/100 WBC (Bld) 39.1 % Low 47-70 [facility] Comment on above: Performed By: #### L 100.0100, L500.2500 ####[facility] [address] [place], [address] Nucleated RBC (Bld) [#/Vol] 0 10*3/uL Normal 0-5 [facility] Comment on above: Performed By: #### L 100.0100, L500.2500 ####[facility] [address] [place], [address] Platelet mean volume (Bld) [Entitic vol] 11.5 fL Normal 6.2-12.0 [facility] Comment on above: Performed By: #### L 100.0100, L500.2500 ####[facility] [address] [place], [address] Platelets (Bld) [#/Vol] 111 10*3/uL Low 150-450 [facility] Comment on above: Performed By: #### L 100.0100, L500.2500 ####[facility] [address] [place], [address] RBC (Bld) [#/Vol] 4.15 10*6/uL Low 4.2-5.4 [facility] Comment on above: Performed By: #### L 100.0100, L500.2500 ####[facility] [address] [place], [address] RDW SD 51.0 fl High 35.1-43.9 [facility] Comment on above: Performed By: #### L 100.0100, L500.2500 ####[facility] [address] [place], [address] WBC (Bld) [#/Vol] 2.6 10*3/uL Low 4.4-11.0 [facility] Comment on above: Performed By: #### L 100.0100, L500.2500 ####[facility] [address] [place], [address] Echocardiogram study reportO rdered By: Joselyn Brody on 12-02-2024 Study report [facility] [address] [place] [address] Echo Complete 12/01/24 1532 MR#: [id number] Acct: [id number] Name: ROBERTO FERGUSON Rep #:[id number] : 1935 89 From: Joselyn montalvo MD Attending Dr: Dr. Marga Butcher MD Status: ADM PATRICIA Ordering Dr: Marga Butcher MD Date: Location: MS3 Sex: F C Admitted: 11/30/24 Reason For Study Reason For Study: weakness/dizziness w/fall Procedure This was a 2D Doppler, Color Flow transthoracic echocardiogram. Exam performed portable in patient room. Left Ventricle Normal left ventricular size. Mildly increased left ventricular wall thickness. Global hypokinesis with severe mid to apical hypokinesis and normal basal anterior, anteriorlateral wall motion. Moderately reduced LVEF ; estimated ejection fraction of 35%. Abnormal septal motion secondary to paced rhythm, D-shaped septum in diastole suggestive of increased right ventricular volume. Indeterminate diastolic function. Right Ventricle Mild Right ventricular dilation with preserved function. Pacemaker lead noted in the RV. Atria Moderately dilated left atrium Mildly dilated right atrium. Mitral Valve Mild mitral valve thickening. 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 Mild mitral regurgitation with no evidence of stenosis. Tricuspid Valve Normal tricuspid valve. Unable to estimate RV systolic pressure due to insufficient tricuspid regurgitant envelope. Mild tricuspid valve insufficiency. Aortic Valve Mild aortic sclerosis without reduced excursion. No aortic stenosis or regurgitation noted. Pulmonic Valve The pulmonic valve is not well visualized. Great Vessels Normal sized aortic root. Plethoric inferior vena cava. Inferior vena cava collapse with sniff. Pericardium/Pleural Epicardial fat. MMode/2D Measurements & Calculations LVIDd: 5.1 cm IVSd: 0.87 cm Ao root diam: 3.6 cm LVIDs: 4.1 cm LVPWd: 0.87 cm FS: 19.4 % __ LAV(MOD-bp): 71.5 ml LVAd ap4: 18.3 cm2 SV(MOD-sp4): 17.0 ml LAV(MOD-bp) Indexed: 46.3 ml/m2 LVLd ap4: 6.1 cm SI(MOD-sp4): 11.0 ml/m2 LAV(MOD-sp2): 68.2 ml EDV(MOD-sp4): 47.1 ml LAV(MOD-sp4): 68.0 ml EDV(sp4-el): 46.7 ml LVAs ap4: 14.1 cm2 LVLs ap4: 5.6 cm ESV(MOD-sp4): 30.1 ml ESV(sp4-el): 29.9 ml EF(MOD-sp4): 36.1 % EF(sp4-el): 36.1 % SV(sp4-el): 16.8 ml LA A4 area: 21.4 cm2 LA dimension(2D): 4.5 cm RA A4 area: 24.9 cm2 TAPSE: 1.2 cm Doppler Measurements & Calculations MV E max bibiana: 76.1 cm/sec Lat Peak E' Bibiana: 14.7 cm/sec Med Peak E' Bibiana: 10.3 cm/sec MV A max bibiana: 46.4 cm/sec E/E' lat: 5.2 E/E' med: 7.4 MV E/A: 1.6 Ao V2 max: 130.1 cm/sec LV V1 max: 53.6 cm/sec MR max bibiana: 392.6 cm/sec Ao max P.8 mmHg LV V1 max P.1 mmHg MR max P.7 mmHg Ao V2 mean: 96.0 cm/sec LV V1 mean P.64 mmHg MR mean bibiana: 313.0 cm/sec Ao mean P.0 mmHg LV V1 mean: 38.1 cm/sec MR mean P.6 mmHg Ao V2 VTI: 23.0 cm LV V1 VTI: 9.3 cm MR VTI: 130.4 cm AV (velocity ratio): 0.41 PA V2 max: 104.0 cm/sec TR max bibiana: 212.1 cm/sec PA V2 mean: 73.9 cm/sec PI dec slope: 154.6 cm/sec2 TR max P.0 mmHg PA V2 VTI: 17.9 cm ECHO/Echo Complete Interpretation Summary Normal left ventricular size. Mildly increased left ventricular wall thickness. Global hypokinesis with severe mid to apical hypokinesis and normal basal anterior, anteriorlateral wall motion. Moderately reduced LVEF ; estimated ejection fraction of 35%. Abnormal septal motion secondary to paced rhythm, D-shaped septum in diastole suggestive of increased right ventricular volume. Indeterminate diastolic function. Moderately dilated left atrium Mildly dilated right atrium Mild Right ventricular dilation with preserved function. Pacemaker lead noted in the RV. Unable to estimate RV systolic pressure due to insufficient tricuspid regurgitant envelope. Ordering Physician: Marga Butcher Referring Physician: Linda Mao Performed By: Jewell Sarkar, BAHMAN, RVT 12/02/24 1308 Date _ Joselyn Brody MD CC: Dr. Linda Mao MD; Dr. Marga Butcher MD ~ Date Dictated: 12/01/24 1532 Date Transcribed: 12/02/24 1308 Clamp Operator: Signed [facility] Other Phone: [phone] 12-02-2024 Trop T High Sen 42 ng/L High <=14 [facility] Comment on above: Performed By: #### L 501.4021 ####[facility] [address] [place], [address] Troponin T HS 2 HRon 025 Trop T High Sen 41 ng/L High <=14 [facility] Comment on above: Performed By: #### L 499.0042 ####[facility] [address] [place], [address] Troponin T HS 4 HRon 025 Trop T High Sen 48 ng/L High <=14 [facility] Comment on above: Performed By: #### L 499.0043 ####[facility] [address] [place], [address] Troponin T.cardiac [Mass/vol ume] in Serum or Plasma by High sensitivity methodOrdered By: Marga Butcher on 12-02-2024 Troponin T.cardiac High sensitivity method [Mass/Vol] 48 ng/L High <14 [facility] Troponin T.cardiac High sensitivity method [Mass/Vol] 41 ng/L High <14 [facility] Troponin T.cardiac High sensitivity method [Mass/Vol] 42 ng/L High <14 [facility] Basic Metabolic Profile (BMP )on 12-01-2024 BUN/CRE 20.4 RATIO High 10-20 [facility] Comment on above: Performed By: #### L 100.0500, L500.2500 ####[facility] [address] [place], [address] Calcium [Mass/Vol] 8.1 mg/dL Normal 7.6-11.0 [facility] Comment on above: Performed By: #### L 100.0500, L500.2500 ####[facility] [address] [place], [address] Chloride [Moles/Vol] 106 mmol/L Normal 98-108 [facility] Comment on above: Performed By: #### L 100.0500, L500.2500 ####[facility] [address] [place], [address] CO2 [Moles/Vol] 23.5 mmol/L Normal 21.0-32.0 [facility] Comment on above: Performed By: #### L 100.0500, L500.2500 ####[facility] [address] [place], [address] Creatinine [Mass/Vol] 1.16 mg/dL Normal 0.70-1.20 [facility] Comment on above: Performed By: #### L 100.0500, L500.2500 ####[facility] [address] [place], [address] ECRCL 26.84 ml/min Low 50-250 [facility] Comment on above: Performed By: #### L 100.0500, L500.2500 ####[facility] [address] [place], [address] GAP 9 Normal 5-15 [facility] Comment on above: Performed By: #### L 100.0500, L500.2500 ####[facility] [address] [place], [address] GFR/1.73 sq M.predicted among non-blacks MDRD (S/P/Bld) [Vol rate/Area] 45 mL/min/{1.73_m2} Low >60 [facility] Comment on above: Result Comment: mL/m in/1.73m2 CKD-EPI Creatinine Equation (2020) Performed By: #### L 100.0500, L500.2500 ####[facility] [address] [place], [address] Glucose [Mass/Vol] 88 mg/dL Normal 70-99 [facility] Comment on above: Performed By: #### L 100.0500, L500.2500 ####[facility] [address] [place], [address] Potassium [Moles/Vol] 3.8 mmol/L Normal 3.3-5.1 [facility] Comment on above: Performed By: #### L 100.0500, L500.2500 ####[facility] [address] [place], [address] Sodium [Moles/Vol] 138 mmol/L Normal 133-145 [facility] Comment on above: Performed By: #### L 100.0500, L500.2500 ####[facility] [address] [place], [address] Urea nitrogen [Mass/Vol] 24 mg/dL High 4-19 [facility] Comment on above: Performed By: #### L 100.0500, L500.2500 ####[facility] [address] [place], [address] Bilirubin Test strip Ql (U)O rdered By: Marga Butcher on 12-01-2024 Bilirubin Ql (U) Negative Negative [facility] CBC-Complete Blood Cnt No Di ffon 12-01-2024 Erythrocyte distribution width (RBC) [Ratio] 14.3 % Normal 11.6-14.6 [facility] Comment on above: Performed By: #### L 100.0500, L500.2500 ####[facility] [id number] [place], [address] Hematocrit (Bld) [Volume fraction] 38.8 % Normal 37-47 [facility] Comment on above: Performed By: #### L 100.0500, L500.2500 ####[facility] [address] [place], [address] Hemoglobin (Bld) [Mass/Vol] 13.4 g/dL Normal 12.0-15.0 [facility] Comment on above: Performed By: #### L 100.0500, L500.2500 ####[facility] [address] [place], [address] MCH (RBC) [Entitic mass] 33.3 pg High 27.0-32.0 [facility] Comment on above: Performed By: #### L 100.0500, L500.2500 ####[facility] [address] [place], [address] MCHC (RBC) [Mass/Vol] 34.5 g/dL Normal 32-36 [facility] Comment on above: Performed By: #### L 100.0500, L500.2500 ####[facility] [address] [place], [address] MCV (RBC) [Entitic vol] 96.5 fL Normal 81-99 [facility] Comment on above: Performed By: #### L 100.0500, L500.2500 ####[facility] [address] [place], [address] Platelet mean volume (Bld) [Entitic vol] 11.1 fL Normal 6.2-12.0 [facility] Comment on above: Performed By: #### L 100.0500, L500.2500 ####[facility] [address] [place], [address] Platelets (Bld) [#/Vol] 101 10*3/uL Low 150-450 [facility] Comment on above: Performed By: #### L 100.0500, L500.2500 ####[facility] [address] [place], [address] RBC (Bld) [#/Vol] 4.02 10*6/uL Low 4.2-5.4 [facility] Comment on above: Performed By: #### L 100.0500, L500.2500 ####[facility] [address] [place], [address] RDW SD 51.0 fl High 35.1-43.9 [facility] Comment on above: Performed By: #### L 100.0500, L500.2500 ####[facility] [address] [place], [place], [address] WBC (Bld) [#/Vol] 2.6 10*3/uL Low 4.4-11.0 [facility] Comment on above: Performed By: #### L 100.0500, L500.2500 ####[facility] [address] [place], [address] Echo Completeon 12-01-2024 Echo Complete Normal [facility] Ketones Test strip Ql (U)Ord ered By: Marga Butcher on 12-01-2024 Ketones Ql (U) Negative Negative [facility] Magnesiumon 12-01-2024 Magnesium [Mass/Vol] 1.7 mg/dL Normal 1.5-2.2 [facility] Comment on above: Performed By: #### L 503.0106, L506.1001, L501.5200 ####[facility] [address] [place], [address] Microscopic analysis of urin e for red blood cells (RBC)Ordered By: Marga Butcher on 12-01-2024 Microscopic analysis of urine for red blood cells (RBC) 0 SEEN /hpf 0-5 [facility] Mucus LM Ql (Urine sed)Order ed By: Marga Butcher on 12-01-2024 Mucus Ql (Urine sed) 0 SEEN /hpf [facility] Nitrite Test strip Ql (U)Ord ered By: Marga Butcher on 12-01-2024 Nitrite Ql (U) Negative Negative [facility] Protein Test strip Ql (U)Ord ered By: Marga Butcher on 12-01-2024 Protein Ql (U) 15 mg/dl High Negative [facility] Squamous epithelial cells de tection in urine sediment by light microscopyOrdered By: Marga Butcher on 12-01-2024 Epithelial cells.squamous LM Ql (Urine sed) 0-5 SEEN /hpf 5-10 [facility] Urinalysis, Completeon 12-01 EPI,SQUAMOUS 0-5 SEEN Normal 5-10 [facility] Comment on above: Order Comment: CLEAN CATCH Performed By: #### M 100.2200, L400.0001 ####[facility] [address] [place], [address] WBC 0-5 SEEN Normal 0-5 [facility] Comment on above: Order Comment: CLEAN CATCH Performed By: #### M 100.2200, L400.0001 ####[facility] [address] [place], [address] BACTERIA 0 SEEN Normal None Seen [facility] Comment on above: Order Comment: CLEAN CATCH Performed By: #### M 100.2200, L400.0001 ####[facility] [address] [place], [address] Mucus Ql (Urine sed) 0 SEEN Normal [facility] Comment on above: Order Comment: CLEAN CATCH Performed By: #### M 100.2200, L400.0001 ####[facility] [address] [place], [address] RBC 0 SEEN Normal 0-5 [facility] Comment on above: Order Comment: CLEAN CATCH Performed By: #### M 100.2200, L400.0001 ####[facility] [address] [place], [address] Urine clarityOrdered By: Bc Butcher on 12-01-2024 Clarity (U) Sl. Cloudy Clear [facility] Urine color determinationOrd ered By: Marga Butcher on 12-01-2024 Color (U) Yellow Yellow [facility] Urine cultureOrdered By: Bc Butcher on 12-01-2024 Bacteria identified Cx Nom (U) Presumptive E. coli Abnormal [facility] Bacteria identified Cx Nom (U) Positive Abnormal [facility] Urine glucose detectionOrder ed By: Marga Butcher on 12-01-2024 Glucose Ql (U) 1000 mg/dl High Normal [facility] Urine leukocyte esterase det ection by dipstickOrdered By: Marga Butcher on 12-01-2024 Leukocyte esterase Test strip Ql (U) 25 /ul High Negative [facility] Urine pHOrdered By: Magra dee on 12-01-2024 pH (U) 7.0 [pH] 5.0 - 8.0 [facility] Urine sediment bacteria coun t by microscopy (number/high power field)Ordered By: Marga Butcher on 12-01-2024 Bacteria LM.HPF (Urine sed) [#/Area] 0 /[HPF] None Seen [facility] Urine specific gravity measu rementOrdered By: Marga Butcher on 12-01-2024 Specific gravity (U) [Rel density] 1.010 1.002-1.03 0 [facility] Urine urobilinogen measureme ntOrdered By: Marga Butcher on 12-01-2024 Urobilinogen Ql (U) Normal mg/dl Normal [facility] Vitamin B12on 12-01-2024 Cobalamin (Vitamin B12) [Mass/Vol] 390 pg/mL Normal 180-914 [facility] Comment on above: Performed By: #### L 503.0106, L506.1001, L501.5200 ####[facility] [address] [place], [place], [id number] Vitamin B12 ser/plasOrdered By: Marga Butcher on 12-01-2024 Cobalamin (Vitamin B12) [Mass/Vol] 390 pg/mL 180-914 [facility] Vitamin D,25 Hydroxyon 12-01 Vitamin D 25-OH 25.7 ng/mL Low 30-100 [facility] Comment on above: Result Comment: Catherine min D StatusDeficiency: <20 ng/mL (50nmol/L)Insufficiency: 20-30 ng/mL (50-75 nmol/L)Sufficiency: 30-100 ng/mL (75-250 nmol/L)Toxicity: >100 ng/mL (>250 nmol/L) Performed By: #### L 503.0106, L506.1001, L501.5200 ####[facility] [address] [place], [place], [id number] White blood cell countOrdere d By: Marga Butcher on 12-01-2024 White blood cell count 0-5 SEEN /hpf 0-5 [facility] 12 Lead EKGon 11-30-2024 12 Lead EKG Normal [facility] Absolute lymphocyte countOrd ered By: Nikos Lake on 11-30-2024 Lymphocytes Auto (Unsp spec) [#/Vol] 1.09 10*3/uL 0.83-4.51 [facility] Absolute neutrophil countOrd ered By: Nikos Lake on 11-30-2024 Neutrophils (Bld) [#/Vol] 2.1 10*3/uL 2.0-7.7 [facility] Anion gap in Serum or Plasma Ordered By: Nikos Lake on 11-30-2024 Anion gap [Moles/Vol] 13 mmol/L 5-15 [facility] Automated lymphocyte count a s percentage of total leukocytesOrdered By: Nikos Lake on 11-30-2024 Lymphocytes/100 WBC Auto (Unsp spec) 27.5 % 19-41 [facility] BUN/creatinine ratioOrdered By: Nikos Lake on 11-30-2024 Urea nitrogen/Creatinine [Mass ratio] 22.7 mg/mg High 10-20 [facility] Basophil percentageOrdered B y: Nikos Lake on 11-30-2024 Basophils/100 WBC (Bld) 0.5 % 0-1 [facility] Bilirubin, totalOrdered By: Nikos Lake on 11-30-2024 Bilirubin [Mass/Vol] 0.65 mg/dL 0.00-1.30 [facility] Brain/Head without Contrasto n 11-30-2024 Brain/Head without Contrast Normal [facility] CBC W/Diff, Automatedon 11-02 Absolute Lymph 1.09 X10 3/uL Normal 0.83-4.51 [facility] Comment on above: Performed By: #### L 500.4050, L100.0100 ####[facility] [address] [place], [address] Absolute Neut 2.1 X10 3/uL Normal 2.0-7.7 [facility] Comment on above: Performed By: #### L 500.4050, L100.0100 ####[facility] [address] [place], [address] Basophils/100 WBC (Bld) 0.5 % Normal 0-1 [facility] Comment on above: Performed By: #### L 500.4050, L100.0100 ####[facility] [address] [place], [address] Eosinophils/100 WBC (Bld) 1.0 % Normal 0-5 [facility] Comment on above: Performed By: #### L 500.4050, L100.0100 ####[facility] [address] [place], [address] Erythrocyte distribution width (RBC) [Ratio] 14.5 % Normal 11.6-14.6 [facility] Comment on above: Performed By: #### L 500.4050, L100.0100 ####[facility] [address] [place], [address] Hematocrit (Bld) [Volume fraction] 45.8 % Normal 37-47 [facility] Comment on above: Performed By: #### L 500.4050, L100.0100 ####[facility] [address] [place], [address] Hemoglobin (Bld) [Mass/Vol] 15.6 g/dL High 12.0-15.0 [facility] Comment on above: Performed By: #### L 500.4050, L100.0100 ####[facility] [address] [place], [address] IG% 0.300 Normal 0.0-0.9 [facility] Comment on above: Result Comment: IG% - Immature Granulocytes (promyelocytes, myelocytes andmetamyelocytes) > 1% indicates that a LEFT SHIFT is Present. Performed By: #### L 500.4050, L100.0100 ####[facility] [address] [place], [address] Lymphocytes/100 WBC (Bld) 27.5 % Normal 19-41 [facility] Comment on above: Performed By: #### L 500.4050, L100.0100 ####[facility] [address] [place], [address] MCH (RBC) [Entitic mass] 32.8 pg High 27.0-32.0 [facility] Comment on above: Performed By: #### L 500.4050, L100.0100 ####[facility] [address] [place], [address] MCHC (RBC) [Mass/Vol] 34.1 g/dL Normal 32-36 [facility] Comment on above: Performed By: #### L 500.4050, L100.0100 ####[facility] [address] [place], [address] MCV (RBC) [Entitic vol] 96.4 fL Normal 81-99 [facility] Comment on above: Performed By: #### L 500.4050, L100.0100 ####[facility] [address] [place], [address] Monocytes/100 WBC (Bld) 17.9 % High 0-10 [facility] Comment on above: Performed By: #### L 500.4050, L100.0100 ####[facility] [address] [place], [address] Neutrophils/100 WBC (Bld) 52.8 % Normal 47-70 [facility] Comment on above: Performed By: #### L 500.4050, L100.0100 ####[facility] [address] [place], [address] Nucleated RBC (Bld) [#/Vol] 0 10*3/uL Normal 0-5 [facility] Comment on above: Performed By: #### L 500.4050, L100.0100 ####[facility] [address] [place], [address] Platelet mean volume (Bld) [Entitic vol] 12.0 fL Normal 6.2-12.0 [facility] Comment on above: Performed By: #### L 500.4050, L100.0100 ####[facility] [address] [place], [address] Platelets (Bld) [#/Vol] 124 10*3/uL Low 150-450 [facility] Comment on above: Performed By: #### L 500.4050, L100.0100 ####[facility] [address] [place], [address] RBC (Bld) [#/Vol] 4.75 10*6/uL Normal 4.2-5.4 [facility] Comment on above: Performed By: #### L 500.4050, L100.0100 ####[facility] [address] [place], [address] RDW SD 51.2 fl High 35.1-43.9 [facility] Comment on above: Performed By: #### L 500.4050, L100.0100 ####[facility] [address] [place], [address] WBC (Bld) [#/Vol] 4.0 10*3/uL Low 4.4-11.0 [facility] Comment on above: Performed By: #### L 500.4050, L100.0100 ####[facility] [address] [place], [address] Carbon dioxide, total [Moles /volume] in Central venous bloodOrdered By: Nikos Lake on 11-30-2024 CO2 [Moles/Vol] 22.4 mmol/L 21.0-32.0 [facility] Chest 1 View (Portable)on Chest 1 View (Portable) Normal [facility] Chloride assayOrdered By: Alex Lake on 11-30-2024 Chloride [Moles/Vol] 104 mmol/L 98-108 [facility] Comprehensive Metabolic Prof ilon 11-30-2024 Albumin [Mass/Vol] 3.5 g/dL Normal 3.4-4.8 [facility] Comment on above: Order Comment: REDRA W X2. PREVIOUS SPECIMEN REJECTED DUE TOHEMOLYSIS. 11/30/24 1308 Radha Dowell. Performed By: #### L 500.4050 ####[facility] [address] [place], [address] Albumin/Globulin [Mass ratio] 1.5 {ratio} Normal 0.9-2.4 [facility] Comment on above: Order Comment: REDRA W X2. PREVIOUS SPECIMEN REJECTED DUE TOHEMOLYSIS. 11/30/24 1308 Radha Dowell. Performed By: #### L 500.4050 ####[facility] [address] [place], [address] ALK PHOS 45 U/L Normal 35-104 [facility] Comment on above: Order Comment: REDRA W X2. PREVIOUS SPECIMEN REJECTED DUE TOHEMOLYSIS. 11/30/24 1308 Radha Dowell. Performed By: #### L 500.4050 ####[facility] [address] [place], [address] ALT [Catalytic activity/Vol] 22 U/L Normal <=34 [facility] Comment on above: Order Comment: REDRA W X2. PREVIOUS SPECIMEN REJECTED DUE TOHEMOLYSIS. 11/30/24 1308 Radha Dowell. Performed By: #### L 500.4050 ####[facility] [address] [place], [address] AST [Catalytic activity/Vol] 23 U/L Normal <=31 [facility] Comment on above: Order Comment: REDRA W X2. PREVIOUS SPECIMEN REJECTED DUE TOHEMOLYSIS. 11/30/24 1308 Radha Dowell. Performed By: #### L 500.4050 ####[facility] [address] [place], [address] Bilirubin [Mass/Vol] 0.65 mg/dL Normal 0.00-1.30 [facility] Comment on above: Order Comment: REDRA W X2. PREVIOUS SPECIMEN REJECTED DUE TOHEMOLYSIS. 11/30/24 1308 Radha Dowell. Performed By: #### L 500.4050 ####[facility] [address] [place], [address] BUN/CRE 22.7 RATIO High 10-20 [facility] Comment on above: Order Comment: REDRA W X2. PREVIOUS SPECIMEN REJECTED DUE TOHEMOLYSIS. 11/30/24 1308 Radha Dowell. Performed By: #### L 500.4050 ####[facility] [address] [place], [address] Calcium [Mass/Vol] 8.7 mg/dL Normal 7.6-11.0 [facility] Comment on above: Order Comment: REDRA W X2. PREVIOUS SPECIMEN REJECTED DUE TOHEMOLYSIS. 11/30/24 1308 Radha Dowell. Performed By: #### L 500.4050 ####[facility] [address] [place], [address] Chloride [Moles/Vol] 104 mmol/L Normal 98-108 [facility] Comment on above: Order Comment: REDRA W X2. PREVIOUS SPECIMEN REJECTED DUE TOHEMOLYSIS. 11/30/24 1308 Radha Dowell. Performed By: #### L 500.4050 ####[facility] [address] [place], [address] CO2 [Moles/Vol] 22.4 mmol/L Normal 21.0-32.0 [facility] Comment on above: Order Comment: REDRA W X2. PREVIOUS SPECIMEN REJECTED DUE TOHEMOLYSIS. 11/30/24 1308 Radha Dowell. Performed By: #### L 500.4050 ####[facility] [address] [place], [address] Creatinine [Mass/Vol] 1.15 mg/dL Normal 0.70-1.20 [facility] Comment on above: Order Comment: REDRA W X2. PREVIOUS SPECIMEN REJECTED DUE TOHEMOLYSIS. 11/30/24 1308 Radha Dowell. Performed By: #### L 500.4050 ####[facility] [address] [place], [address] ECRCL 27.44 ml/min Low 50-250 [facility] Comment on above: Order Comment: REDRA W X2. PREVIOUS SPECIMEN REJECTED DUE TOHEMOLYSIS. 11/30/24 1308 Radha Dowell. Performed By: #### L 500.4050 ####[facility] [address] [place], [address] GAP 13 Normal 5-15 [facility] Comment on above: Order Comment: REDRA W X2. PREVIOUS SPECIMEN REJECTED DUE TOHEMOLYSIS. 11/30/24 1308 Radha Dowell. Performed By: #### L 500.4050 ####[facility] [address] [place], [address] GFR/1.73 sq M.predicted among non-blacks MDRD (S/P/Bld) [Vol rate/Area] 46 mL/min/{1.73_m2} Low >60 [facility] Comment on above: Order Comment: REDRA W X2. PREVIOUS SPECIMEN REJECTED DUE TOHEMOLYSIS. 11/30/24 1308 Radha Dowell. Result Comment: mL/m in/1.73m2 CKD-EPI Creatinine Equation (2020) Performed By: #### L 500.4050 ####[facility] [address] [place], [address] Globulin (S) [Mass/Vol] 2.2 g/dL Normal 2.2-4.2 [facility] Comment on above: Order Comment: REDRA W X2. PREVIOUS SPECIMEN REJECTED DUE TOHEMOLYSIS. 11/30/24 1308 Radha Dowell. Performed By: #### L 500.4050 ####[facility] [address] [place], [address] Glucose [Mass/Vol] 105 mg/dL High 70-99 [facility] Comment on above: Order Comment: REDRA W X2. PREVIOUS SPECIMEN REJECTED DUE TOHEMOLYSIS. 11/30/24 1308 Radha Dowell. Performed By: #### L 500.4050 ####[facility] [address] [place], [address] Potassium [Moles/Vol] 4.1 mmol/L Normal 3.3-5.1 [facility] Comment on above: Order Comment: REDRA W X2. PREVIOUS SPECIMEN REJECTED DUE TOHEMOLYSIS. 11/30/24 1308 Radha Dowell. Performed By: #### L 500.4050 ####[facility] [address] [place], [address] Sodium [Moles/Vol] 139 mmol/L Normal 133-145 [facility] Comment on above: Order Comment: REDRA W X2. PREVIOUS SPECIMEN REJECTED DUE TOHEMOLYSIS. 11/30/24 1308 Radha Dowell. Performed By: #### L 500.4050 ####[facility] [address] [place], [address] T PROT 5.7 g/dL Low 5.9-8.4 [facility] Comment on above: Order Comment: REDRA W X2. PREVIOUS SPECIMEN REJECTED DUE TOHEMOLYSIS. 11/30/24 1308 Radha Dowell. Performed By: #### L 500.4050 ####[facility] [address] [place], [address] Urea nitrogen [Mass/Vol] 26 mg/dL High 4-19 [facility] Comment on above: Order Comment: REDRA W X2. PREVIOUS SPECIMEN REJECTED DUE TOHEMOLYSIS. 11/30/24 1308 Radha Dowell. Performed By: #### L 500.4050 ####[facility] [address] [place], [address] ALB Normal 3.4-4.8 [facility] Comment on above: Order Comment: REDRA W Result Comment: This specimen has been REJECTED due to Laboratory criteria:Hemolyzed.MALDONADO has been notified of need of recollection.11/30/24 1308 Radha Dowell Performed By: #### L 500.4050 ####[facility] [address] [place], [address] ALK PHOS Normal 35-104 [facility] Comment on above: Order Comment: REDRA W Result Comment: This specimen has been REJECTED due to Laboratory criteria:Hemolyzed.DENISSEILIE has been notified of need of recollection.11/30/24 1308 Radha Dowell Performed By: #### L 500.4050 ####[facility] [address] [place], [address] ALT Normal <=34 [facility] Comment on above: Order Comment: REDRA W Result Comment: This specimen has been REJECTED due to Laboratory criteria:Hemolyzed.LORILIE has been notified of need of recollection.11/30/24 1308 Radha Dowell Performed By: #### L 500.4050 ####[facility] [address] [place], [address] AST Normal <=31 [facility] Comment on above: Order Comment: REDRA W Result Comment: This specimen has been REJECTED due to Laboratory criteria:Hemolyzed.DENISSEILIE has been notified of need of recollection.11/30/24 1308 Radha Dowell Performed By: #### L 500.4050 ####[facility] [address] [place], [address] BUN Normal 4-19 [facility] Comment on above: Order Comment: REDRA W Result Comment: This specimen has been REJECTED due to Laboratory criteria:Hemolyzed.LORILIE has been notified of need of recollection.11/30/24 1308 Radha Dowell Performed By: #### L 500.4050 ####[facility] [address] [place], [address] BUN/CRE Normal 10-20 [facility] Comment on above: Order Comment: REDRA W Result Comment: This specimen has been REJECTED due to Laboratory criteria:Hemolyzed.DENISSEPIPPAGenie has been notified of need of recollection.11/30/24 1308 Radha Dowell Performed By: #### L 500.4050 ####[facility] [address] [place], [address] Calcium Normal 7.6-11.0 [facility] Comment on above: Order Comment: REDRA W Result Comment: This specimen has been REJECTED due to Laboratory criteria:Hemolyzed.MALDONADO has been notified of need of recollection.11/30/24 1308 Radha Dowell Performed By: #### L 500.4050 ####[facility] [address] [facility] [address] CL Normal 98-108 [facility] Comment on above: Order Comment: REDRA W Result Comment: This specimen has been REJECTED due to Laboratory criteria:Hemolyzed.MALDONADO has been notified of need of recollection.11/30/24 1308 Radha Dowell Performed By: #### L 500.4050 ####[facility] [address] [facility] [address] CO2 Normal 21.0-32.0 [facility] Comment on above: Order Comment: REDRA W Result Comment: This specimen has been REJECTED due to Laboratory criteria:Hemolyzed.DENISSEAMERICO has been notified of need of recollection.11/30/24 1308 Radha Dowell Performed By: #### L 500.4050 ####[facility] [address] [place], [address] CREAT,SERUM Normal 0.70-1.20 [facility] Comment on above: Order Comment: REDRA W Result Comment: This specimen has been REJECTED due to Laboratory criteria:Hemolyzed.MALDONADO has been notified of need of recollection.11/30/24 1308 Radha Dowell Performed By: #### L 500.4050 ####[facility] [address] [place], [address] eGFR Normal >60 [facility] Comment on above: Order Comment: REDRA W Result Comment: This specimen has been REJECTED due to Laboratory criteria:Hemolyzed.MALDONADO has been notified of need of recollection.11/30/24 1308 Radha Dowell Performed By: #### L 500.4050 ####[facility] [address] [place], [address] GAP Normal 5-15 [facility] Comment on above: Order Comment: REDRA W Result Comment: This specimen has been REJECTED due to Laboratory criteria:Hemolyzed.MALDONADO has been notified of need of recollection.11/30/24 130 Radha Dowell Performed By: #### L 500.4050 ####[facility] [address] [place], [address] GLU Normal 70-99 [facility] Comment on above: Order Comment: REDRA W Result Comment: This specimen has been REJECTED due to Laboratory criteria:Hemolyzed.MALDONADO has been notified of need of recollection.11/30/24 130 Radha Dowell Performed By: #### L 500.4050 ####[facility] [address] [place], [address] Potassium Normal 3.3-5.1 [facility] Comment on above: Order Comment: REDRA W Result Comment: This specimen has been REJECTED due to Laboratory criteria:Hemolyzed.MALDONADO has been notified of need of recollection.11/30/24 1308 Radha Dowell Performed By: #### L 500.4050 ####[facility] [address] [place], [address] T BILI Normal 0.00-1.30 [facility] Comment on above: Order Comment: REDRA W Result Comment: This specimen has been REJECTED due to Laboratory criteria:Hemolyzed.KERONE has been notified of need of recollection.11/30/24 1308 Radha Dowlel Performed By: #### L 500.4050 ####[facility] [address] [place], [address] T PROT Normal 5.9-8.4 [facility] Comment on above: Order Comment: REDRA W Result Comment: This specimen has been REJECTED due to Laboratory criteria:Hemolyzed.LORILIE has been notified of need of recollection.11/30/24 1308 Radha Dowell Performed By: #### L 500.4050 ####[facility] [address] [place], [address] Comprehensive Metabolic Profil Normal 133-145 [facility] Comment on above: Order Comment: REDRA W Result Comment: This specimen has been REJECTED due to Laboratory criteria:Hemolyzed.LORILIE has been notified of need of recollection.11/30/24 1308 Radha Dowell Performed By: #### L 500.4050 ####[facility] [address] [place], [address] ALB Normal 3.4-4.8 [facility] Comment on above: Result Comment: REDR AW. PREVIOUS SPECIMEN REJECTED DUE TOHEMOYSIS. 11/30/24 Lance Garcia.NOTIFIED LORILIE WILL NOTIFY NURSE Performed By: #### L 500.4050, L100.0100 ####[facility] [address] [place], [address] ALK PHOS Normal 35-104 [facility] Comment on above: Result Comment: REDR AW. PREVIOUS SPECIMEN REJECTED DUE TOHEMOYSIS. 11/30/24 Lance Garcia.NOTIFIED LORILIE WILL NOTIFY NURSE Performed By: #### L 500.4050, L100.0100 ####[facility] [address] [place], [address] ALT Normal <=34 [facility] Comment on above: Result Comment: REDR AW. PREVIOUS SPECIMEN REJECTED DUE TOHEMOYSIS. 11/30/24 [facility] Lynn Garcia.NOTIFIED LORILIE WILL NOTIFY NURSE Performed By: #### L 500.4050, L100.0100 ####[facility] [address] [place], [address] AST Normal <=31 [facility] Comment on above: Result Comment: REDR AW. PREVIOUS SPECIMEN REJECTED DUE TOHEMOYSIS. 11/30/24 [facility] Lynn Garcia.NOTIFIED LORILIE WILL NOTIFY NURSE Performed By: #### L 500.4050, L100.0100 ####[facility] [address] [place], [address] BUN Normal 4-19 [facility] Comment on above: Result Comment: REDR AW. PREVIOUS SPECIMEN REJECTED DUE TOHEMOYSIS. 11/30/24 [facility] Lynn Garcia.NOTIFIED LORILIE WILL NOTIFY NURSE Performed By: #### L 500.4050, L100.0100 ####[facility] [address] [place], [address] BUN/CRE Normal 10-20 [facility] Comment on above: Result Comment: REDR AW. PREVIOUS SPECIMEN REJECTED DUE TOHEMOYSIS. 11/30/24 [facility] Lynn Garcia.NOTIFIED LORILIE WILL NOTIFY NURSE Performed By: #### L 500.4050, L100.0100 ####[facility] [address] [place], [address] Calcium Normal 7.6-11.0 [facility] Comment on above: Result Comment: REDR AW. PREVIOUS SPECIMEN REJECTED DUE TOHEMOYSIS. 11/30/24 [facility] Lynn Garcia.NOTIFIED LORILIE WILL NOTIFY NURSE Performed By: #### L 500.4050, L100.0100 ####[facility] [address] [place], [address] CL Normal 98-108 [facility] Comment on above: Result Comment: REDR AW. PREVIOUS SPECIMEN REJECTED DUE TOHEMOYSIS. 11/30/24 Lance Garcia.NOTIFIED LORILIE WILL NOTIFY NURSE Performed By: #### L 500.4050, L100.0100 ####[facility] [address] [place], [address] CO2 Normal 21.0-32.0 [facility] Comment on above: Result Comment: REDR AW. PREVIOUS SPECIMEN REJECTED DUE TOHEMOYSIS. 11/30/24 [facility] Lynn Garcia.NOTIFIED LORILIE WILL NOTIFY NURSE Performed By: #### L 500.4050, L100.0100 ####[facility] [address] [place], [address] CREAT,SERUM Normal 0.70-1.20 [facility] Comment on above: Result Comment: REDR AW. PREVIOUS SPECIMEN REJECTED DUE TOHEMOYSIS. 11/30/24 [facility] Lynn Garcia.NOTIFIED LORILIE WILL NOTIFY NURSE Performed By: #### L 500.4050, L100.0100 ####[facility] [address] [place], [address] eGFR Normal >60 [facility] Comment on above: Result Comment: REDR AW. PREVIOUS SPECIMEN REJECTED DUE TOHEMOYSIS. 11/30/24 [facility] Lynn Garcia.NOTIFIED LORILIE WILL NOTIFY NURSE Performed By: #### L 500.4050, L100.0100 ####[facility] [address] [place], [address] GAP Normal 5-15 [facility] Comment on above: Result Comment: REDR AW. PREVIOUS SPECIMEN REJECTED DUE TOHEMOYSIS. 11/30/24 [facility].NOTIFIED LORILIE WILL NOTIFY NURSE Performed By: #### L 500.4050, L100.0100 ####[facility] [address] [place], [address] GLU Normal 70-99 [facility] Comment on above: Result Comment: REDR AW. PREVIOUS SPECIMEN REJECTED DUE TOHEMOYSIS. 11/30/24 [facility] Lynn Garcia.NOTIFIED LORILIE WILL NOTIFY NURSE Performed By: #### L 500.4050, L100.0100 ####[facility] [address] [place], [address] Potassium Normal 3.3-5.1 [facility] Comment on above: Result Comment: REDR AW. PREVIOUS SPECIMEN REJECTED DUE TOHEMOYSIS. 11/30/24 [facility] Lynn Garcia.NOTIFIED LORILIE WILL NOTIFY NURSE Performed By: #### L 500.4050, L100.0100 ####[facility] [address] [place], [address] T BILI Normal 0.00-1.30 [facility] Comment on above: Result Comment: REDR AW. PREVIOUS SPECIMEN REJECTED DUE TOHEMOYSIS. 11/30/24 [facility] Lynn Garcia.NOTIFIED LORILIE WILL NOTIFY NURSE Performed By: #### L 500.4050, L100.0100 ####[facility] [address] [place], [address] T PROT Normal 5.9-8.4 [facility] Comment on above: Result Comment: REDR AW. PREVIOUS SPECIMEN REJECTED DUE TOHEMOYSIS. 11/30/24 [facility] Lynn Garcia.NOTIFIED LORILIE WILL NOTIFY NURSE Performed By: #### L 500.4050, L100.0100 ####[facility] [address] [place], [address] Comprehensive Metabolic Profil Normal 133-145 [facility] Comment on above: Result Comment: REDR AW. PREVIOUS SPECIMEN REJECTED DUE TOHEMOYSIS. 11/30/24 Lance Garcia.NOTIFIED LORILIE WILL NOTIFY NURSE Performed By: #### L 500.4050, L100.0100 ####[facility] [address] [place], [address] Emergency Department Summary on 11-30-2024 Emergency Department Summary Normal [facility] Eosinophil percentageOrdered By: Nikos Lake on 11-30-2024 Eosinophils/100 WBC (Bld) 1.0 % 0-5 [facility] Erythrocyte distribution wid th ratioOrdered By: Nikos Lake on 11-30-2024 Erythrocyte distribution width (RBC) [Ratio] 14.5 % 11.6-14.6 [facility] Erythrocyte distribution wid th standard deviationOrdered By: Nikos Lake on 11-30-2024 Erythrocyte distribution width (RBC) [Ratio] 51.2 fl High 35.1-43.9 [facility] Glomerular filtration rate ( GFR) estimation/1.73 sq m using serum, plasma, or whole bOrdered By: Nikos Lake on 11-30-2024 GFR/1.73 sq M.predicted among non-blacks MDRD (S/P/Bld) [Vol rate/Area] 46 mL/min/{1.73_m2} Low >60 [facility] Comment on above: mL/min/1.73m2 CKD-EP I Creatinine Equation (2020) H AND P Exam - Hospitaliston 11-30-2024 H&P Exam - Hospitalist Normal [facility] Hematocrit Auto (Bld) [Volum e fraction]Ordered By: Nikos Lake on 11-30-2024 Hematocrit (Bld) [Volume fraction] 45.8 % 37-47 [facility] Hemoglobin measurementOrdere d By: Nikos Lake on 11-30-2024 Hemoglobin (Bld) [Mass/Vol] 15.6 g/dL High 12.0-15.0 [facility] Immature granulocytes/100 WB C Auto (Bld)Ordered By: Nikos Lake on 11-30-2024 Immature granulocytes/100 WBC (Bld) 0.300 % 0.0-0.9 [facility] Comment on above: IG% - Immature Granu locytes (promyelocytes, myelocytes and metamyelocytes) > 1% indicates that a LEFT SHIFT is Present. Laboratory - Chemistry and C hemistry - challengeOrdered By: Nikos Lake on 11-30-2024 AST [Catalytic activity/Vol] 23 U/L <32 [facility] MCV (mean corpuscular volume ) determinationOrdered By: Nikos Lake on 11-30-2024 MCV (RBC) [Entitic vol] 96.4 fL 81-99 [facility] Mean corpuscular hemoglobin (MCH) determinationOrdered By: Nikos Lake on 11-30-2024 MCH (RBC) [Entitic mass] 32.8 pg High 27.0-32.0 [facility] Mean corpuscular hemoglobin concentration (MCHC) determinationOrdered By: Nikos Lake on 11-30-2024 MCHC (RBC) [Mass/Vol] 34.1 g/dL 32-36 [facility] Mean platelet volume determi nationOrdered By: Nikos Lake on 11-30-2024 Platelet mean volume (Bld) [Entitic vol] 12.0 fL 6.2-12.0 [facility] Monocyte percentageOrdered B y: Nikos Lake on 11-30-2024 Monocytes/100 WBC (Bld) 17.9 % High 0-10 [facility] Neutrophil percentageOrdered By: Nikos Lake on 11-30-2024 Neutrophils/100 WBC (Bld) 52.8 % 47-70 [facility] No Panel InformationOrdered By: Nikos Lake on 11-30-2024 23 U/L <32 [facility] Nucleated red blood cell per centageOrdered By: Nikos Lake on 11-30-2024 Nucleated RBC/100 WBC (Bld) [Ratio] 0 % 0-5 [facility] Platelet countOrdered By: Alex Lake on 11-30-2024 Platelets (Bld) [#/Vol] 124 10*3/uL Low 150-450 [facility] Potassium measurement (mass/ volume)Ordered By: Nikos Lake on 11-30-2024 Potassium (Unsp spec) [Mass/Vol] 4.1 mmol/L 3.3-5.1 [facility] RBC Auto (Bld) [#/Vol]Ordere d By: Nikos Lake on 11-30-2024 RBC (Bld) [#/Vol] 4.75 10*6/uL 4.2-5.4 [facility] Serum creatinine measurement (mass/volume)Ordered By: Nikos Lake on 11-30-2024 Creatinine [Mass/Vol] 1.15 mg/dL 0.70-1.20 [facility] Serum globulin measurementOr dered By: Nikos Lake on 11-30-2024 Globulin (S) [Mass/Vol] 2.2 g/dL 2.2-4.2 [facility] Serum glucose measurement (m ass/volume)Ordered By: Nikos Lake on 11-30-2024 Glucose [Mass/Vol] 105 mg/dL High 70-99 [facility] Serum or plasma alanine hay otransferase (ALT) measurementOrdered By: Nikos Lake on 11-30-2024 ALT [Catalytic activity/Vol] 22 U/L <35 [facility] Serum or plasma albumin criss urement (mass/volume)Ordered By: Nikos Lake on 11-30-2024 Albumin [Mass/Vol] 3.5 g/dL 3.4-4.8 [facility] Serum or plasma albumin/glob ulin mass ratioOrdered By: Nikos Lake on 11-30-2024 Albumin/Globulin [Mass ratio] 1.5 {ratio} 0.9-2.4 [facility] Serum or plasma alkaline ezra sphatase measurementOrdered By: Nikos Lake on 11-30-2024 ALP [Catalytic activity/Vol] 45 U/L 35-104 [facility] Serum or plasma calcium criss urement (mass/volume)Ordered By: Nikos Lake on 11-30-2024 Calcium [Mass/Vol] 8.7 mg/dL 7.6-11.0 [facility] Serum or plasma urea nitroge n measurement (mass/volume)Ordered By: Nikos Lake on 11-30-2024 Urea nitrogen [Mass/Vol] 26 mg/dL High 4-19 [facility] Sodium levelOrdered By: Nikos Lake on 11-30-2024 Sodium [Moles/Vol] 139 mmol/L 133-145 [facility] Spine Cervical without Contr ason 11-30-2024 Spine Cervical without Contras Normal [facility] TSH DL <= 0.005 mIU/L QnOrde red By: Sean Thornton on 11-30-2024 TSH Qn 2.500 uIU/mL 0.300-4.20 0 [facility] Thyroid Stim Hormone (TSH)on 11-30-2024 TSH 2.500 uIU/mL Normal 0.300-4.20 0 [facility] Comment on above: Performed By: #### L 501.9520 ####[facility] [address] [place], [address] Total proteinOrdered By: Mojgan ruiz Jaya on 11-30-2024 Protein [Mass/Vol] 5.7 g/dL Low 5.9-8.4 [facility] White blood cell (WBC) count Ordered By: Nikos Jaya on 11-30-2024 WBC (Bld) [#/Vol] 4.0 10*3/uL Low 4.4-11.0 [facility] Oncology Visit Reporton 10-02 Oncology Visit Report Normal [facility] CA 15-3on 10-18-2024 CA 15-3 30.0 U/mL Abnormal 0.0-25.0 [facility] Comment on above: Result Comment: [employer] Electrochemiluminescence Immunoassay(ECLIA)Values obtained with different assay methods or kits cannotbe used interchangeably. Results cannot be interpreted asabsolute evidence of the presence or absence of malignantdisease.Performed at: [address] [id number] Director: Maxx Yi PhD, Phone: [phone] Performed By: #### L 3100.5040, L3100.5030, L500.4050, L504.2610, L100.0100 ####[facility] [address] [place], [place], [id number] CA 27.29on 10-18-2024 CA 27.29 43.7 U/mL Abnormal 0.0-38.6 [facility] Comment on above: Result Comment: 3ROAMaur Immunochemiluminometric Methodology (ICMA)Values obtained with different assay methods or kits cannotbe used interchangeably. Results cannot be interpreted asabsolute evidence of the presence or absence of malignantdisease. Performed By: #### L 3100.5040, L3100.5030, L500.4050, L504.2610, L100.0100 ####[facility] [address] [place], [place], [address] Comprehensive Metabolic Prof ilon 10-17-2024 Bilirubin [Mass/Vol] 0.92 mg/dL Normal 0.00-1.30 [facility] Comment on above: Performed By: #### L 3100.5040, L3100.5030, L500.4050, L504.2610, L100.0100 ####[facility] [address] [place], [place], [id number] Absolute lymphocyte countOrd ered By: Matteo Jonas on 10-16-2024 Lymphocytes Auto (Unsp spec) [#/Vol] 0.93 10*3/uL 0.83-4.51 [facility] Absolute neutrophil countOrd ered By: Matteo Jonas on 10-16-2024 Neutrophils (Bld) [#/Vol] 1.4 10*3/uL Low 2.0-7.7 [facility] Anion gap in Serum or Plasma Ordered By: Matteo Jonas on 10-16-2024 Anion gap [Moles/Vol] 13 mmol/L 5-15 [facility] Automated lymphocyte count a s percentage of total leukocytesOrdered By: Matteo Jonas on 10-16-2024 Lymphocytes/100 WBC Auto (Unsp spec) 32.6 % 19-41 [facility] BUN/creatinine ratioOrdered By: Matteo Jonas on 10-16-2024 Urea nitrogen/Creatinine [Mass ratio] 26.0 mg/mg High 10-20 [facility] Basophil percentageOrdered B y: Matteo Jonas on 10-16-2024 Basophils/100 WBC (Bld) 0.7 % 0-1 [facility] Bilirubin, totalOrdered By: Matteo Jonas on 10-16-2024 Bilirubin [Mass/Vol] 0.92 mg/dL 0.00-1.30 [facility] Blood manual differential co mment interpretation (narrative result)Ordered By: Matteo Jonas on 10-16-2024 Manual differential comment Alejandro (Bld) [Interp] SCANNED [facility] Blood polychromasia detectio n by light microscopyOrdered By: Matteo Jonas on 10-16-2024 Polychromasia LM Ql (Bld) 1+ [facility] CA 15-3Ordered By: Matteo tierney on 10-16-2024 CA 15-3 30.0 U/mL High 0.0-25.0 [facility] Comment on above: [employer] El ectrochemiluminescence Immunoassay(ECLIA)Values obtained with different assay methods or kits cannotbe used interchangeably. Results cannot be interpreted asabsolute evidence of the presence or absence of malignantdisease.Performed at: [facility] [employer] Director: Maxx Yi PhD, Phone: [phone] CA 27.Ordered By: Matteo lyons on 10-16-2024 CA 27.29 43.7 U/mL High 0.0-38.6 [facility] Comment on above: [employer] Immu nochemiluminometric Methodology (ICMA)Values obtained with different assay methods or kits cannotbe used interchangeably. Results cannot be interpreted asabsolute evidence of the presence or absence of malignantdisease. CBC W/Diff, Automatedon 10-01 Anisocytosis Ql (Bld) 1+ Normal [facility] Comment on above: Performed By: #### L 3100.5040, L3100.5030, L500.4050, L504.2610, L100.0100 ####[facility] [address] [place], [place], [id number] POLYCHROMASIA 1+ Normal [facility] Comment on above: Performed By: #### L 3100.5040, L3100.5030, L500.4050, L504.2610, L100.0100 ####[facility] [address] [place], [address] PLT EST SLT DEC Normal ADEQ [facility] Comment on above: Performed By: #### L 3100.5040, L3100.5030, L500.4050, L504.2610, L100.0100 ####[facility] [address] [place], [address] SMEAR COMMENT SCANNED Normal [facility] Comment on above: Performed By: #### L 3100.5040, L3100.5030, L500.4050, L504.2610, L100.0100 ####[facility] [address] [place], [address] Carbon dioxide, total [Moles /volume] in Central venous bloodOrdered By: Matteo Jonas on 10-16-2024 CO2 [Moles/Vol] 23.6 mmol/L 21.0-32.0 [facility] Chloride assayOrdered By: Hailee Jonas on 10-16-2024 Chloride [Moles/Vol] 100 mmol/L 98-108 [facility] Eosinophil percentageOrdered By: Matteo Jonas on 10-16-2024 Eosinophils/100 WBC (Bld) 0.7 % 0-5 [facility] Erythrocyte distribution wid th ratioOrdered By: Matteo Jonas on 10-16-2024 Erythrocyte distribution width (RBC) [Ratio] 18.7 % High 11.6-14.6 [facility] Erythrocyte distribution wid th standard deviationOrdered By: Matteo Jonas on 10-16-2024 Erythrocyte distribution width (RBC) [Ratio] 65.9 fl High 35.1-43.9 [facility] Glomerular filtration rate ( GFR) estimation/1.73 sq m using serum, plasma, or whole bOrdered By: Matteo Jonas on 10-16-2024 GFR/1.73 sq M.predicted among non-blacks MDRD (S/P/Bld) [Vol rate/Area] 46 mL/min/{1.73_m2} Low >60 [facility] Comment on above: mL/min/1.73m2 CKD-EP I Creatinine Equation (2020) Hematocrit Auto (Bld) [Volum e fraction]Ordered By: Matteo Jonas on 10-16-2024 Hematocrit (Bld) [Volume fraction] 43.8 % 37-47 [facility] Hemoglobin measurementOrdere d By: Matteo Jonas on 10-16-2024 Hemoglobin (Bld) [Mass/Vol] 14.8 g/dL 12.0-15.0 [facility] Immature granulocytes/100 WB C Auto (Bld)Ordered By: Matteo Jonas on 10-16-2024 Immature granulocytes/100 WBC (Bld) 0.400 % 0.0-0.9 [facility] Comment on above: IG% - Immature Granu locytes (promyelocytes, myelocytes and metamyelocytes) > 1% indicates that a LEFT SHIFT is Present. LDHon 10-16-2024 LDH 218 U/L Normal 84-246 [facility] Comment on above: Order Comment: 1 Performed By: #### L 3100.5040, L3100.5030, L500.4050, L504.2610, L100.0100 ####[facility] [address] [place], [address] Laboratory - Chemistry and C hemistry - challengeOrdered By: Mattoe Jonas on 10-16-2024 AST [Catalytic activity/Vol] 23 U/L <32 [facility] Laboratory - Hematology and Cell countsOrdered By: Matteo Jonas on 10-16-2024 Anisocytosis Ql (Bld) 1+ [facility] Lactate dehydrogenase (LDH) measurementOrdered By: Matteo Jonas on 10-16-2024 LDH [Catalytic activity/Vol] 218 U/L 84-246 [facility] MCV (mean corpuscular volume ) determinationOrdered By: Matteo Jonas on 10-16-2024 MCV (RBC) [Entitic vol] 96.3 fL 81-99 [facility] Mean corpuscular hemoglobin (MCH) determinationOrdered By: Matteo Jonas on 10-16-2024 MCH (RBC) [Entitic mass] 32.5 pg High 27.0-32.0 [facility] Mean corpuscular hemoglobin concentration (MCHC) determinationOrdered By: Matteo Jonas on 10-16-2024 MCHC (RBC) [Mass/Vol] 33.8 g/dL 32-36 [facility] Mean platelet volume determi nationOrdered By: Matteo Jonas on 10-16-2024 Platelet mean volume (Bld) [Entitic vol] 11.3 fL 6.2-12.0 [facility] Monocyte percentageOrdered B y: Matteo Jonas on 10-16-2024 Monocytes/100 WBC (Bld) 17.2 % High 0-10 [facility] Neutrophil percentageOrdered By: Matteo Jonas on 10-16-2024 Neutrophils/100 WBC (Bld) 48.4 % 47-70 [facility] No Panel InformationOrdered By: Matteo Jonas on 10-16-2024 1+ [facility] 23 U/L <32 [facility] Nucleated red blood cell per centageOrdered By: Matteo Jonas on 10-16-2024 Nucleated RBC/100 WBC (Bld) [Ratio] 0 % 0-5 [facility] Platelet countOrdered By: Hailee Jonas on 10-16-2024 Platelets (Bld) [#/Vol] 102 10*3/uL Low 150-450 [facility] Platelet estimateOrdered By: Matteo Jonas on 10-16-2024 Platelets LM Ql (Bld) SLT DEC ADEQ [facility] Potassium measurement (mass/ volume)Ordered By: Matteo Jonas on 10-16-2024 Potassium (Unsp spec) [Mass/Vol] 3.9 mmol/L 3.3-5.1 [facility] RBC Auto (Bld) [#/Vol]Ordere d By: Matteo Jonas on 10-16-2024 RBC (Bld) [#/Vol] 4.55 10*6/uL 4.2-5.4 [facility] Serum creatinine measurement (mass/volume)Ordered By: Matteo Jonas on 10-16-2024 Creatinine [Mass/Vol] 1.14 mg/dL 0.70-1.20 [facility] Serum globulin measurementOr dered By: Matteo Jonas on 10-16-2024 Globulin (S) [Mass/Vol] 2.1 g/dL Low 2.2-4.2 [facility] Serum glucose measurement (m ass/volume)Ordered By: Matteo Jonas on 10-16-2024 Glucose [Mass/Vol] 124 mg/dL High 70-99 [facility] Serum or plasma alanine hay otransferase (ALT) measurementOrdered By: Matteo Jonas on 10-16-2024 ALT [Catalytic activity/Vol] 17 U/L <35 [facility] Serum or plasma albumin criss urement (mass/volume)Ordered By: Matteo Jonas on 10-16-2024 Albumin [Mass/Vol] 4.1 g/dL 3.4-4.8 [facility] Serum or plasma albumin/glob ulin mass ratioOrdered By: Matteo Jonas on 10-16-2024 Albumin/Globulin [Mass ratio] 2.0 {ratio} 0.9-2.4 [facility] Serum or plasma alkaline ezra sphatase measurementOrdered By: Matteo Jonas on 10-16-2024 ALP [Catalytic activity/Vol] 39 U/L 35-104 [facility] Serum or plasma calcium criss urement (mass/volume)Ordered By: Matteo Jonas on 10-16-2024 Calcium [Mass/Vol] 9.4 mg/dL 7.6-11.0 [facility] Serum or plasma urea nitroge n measurement (mass/volume)Ordered By: Matteo Jonas on 10-16-2024 Urea nitrogen [Mass/Vol] 30 mg/dL High 4-19 [facility] Sodium levelOrdered By: Malvin Jonas on 10-16-2024 Sodium [Moles/Vol] 136 mmol/L 133-145 [facility] Total proteinOrdered By: Victorino Jonas on 10-16-2024 Protein [Mass/Vol] 6.2 g/dL 5.9-8.4 [facility] White blood cell (WBC) count Ordered By: Matteo Jonas on 10-16-2024 WBC (Bld) [#/Vol] 2.9 10*3/uL Low 4.4-11.0 [facility] Absolute lymphocyte countOrd ered By: Leena Serra on 09-29-2024 Lymphocytes Auto (Unsp spec) [#/Vol] 1.07 10*3/uL 0.83-4.51 [facility] Absolute neutrophil countOrd ered By: Leena Serra on 09-29-2024 Neutrophils (Bld) [#/Vol] 1.1 10*3/uL Low 2.0-7.7 [facility] Anion gap in Serum or Plasma Ordered By: Leena Serra on 09-29-2024 Anion gap [Moles/Vol] 11 mmol/L 5-15 [facility] Automated lymphocyte count a s percentage of total leukocytesOrdered By: Leenajulia Serra on 09-29-2024 Lymphocytes/100 WBC Auto (Unsp spec) 39.3 % 19-41 [facility] BUN/creatinine ratioOrdered By: Leenajulia Serra on 09-29-2024 Urea nitrogen/Creatinine [Mass ratio] 27.3 mg/mg High 10-20 [facility] Basophil percentageOrdered B y: Leena Serra on 09-29-2024 Basophils/100 WBC (Bld) 0.7 % 0-1 [facility] Bilirubin, totalOrdered By: [facility] on 09-29-2024 Bilirubin [Mass/Vol] 0.80 mg/dL 0.00-1.30 [facility] CBC W/Diff, Automatedon 09-02 Absolute Lymph 1.07 X10 3/uL Normal 0.83-4.51 [facility] Comment on above: Performed By: #### L 500.4050, L100.0100 ####[facility] [address] [place], [address] Absolute Neut 1.1 X10 3/uL Low 2.0-7.7 [facility] Comment on above: Performed By: #### L 500.4050, L100.0100 ####[facility] [address] [place], [address] Basophils/100 WBC (Bld) 0.7 % Normal 0-1 [facility] Comment on above: Performed By: #### L 500.4050, L100.0100 ####[facility] [address] [place], [address] Eosinophils/100 WBC (Bld) 0.7 % Normal 0-5 [facility] Comment on above: Performed By: #### L 500.4050, L100.0100 ####[facility] [address] [place], [address] Erythrocyte distribution width (RBC) [Ratio] 17.4 % High 11.6-14.6 [facility] Comment on above: Performed By: #### L 500.4050, L100.0100 ####[facility] [address] [place], [address] Hematocrit (Bld) [Volume fraction] 44.0 % Normal 37-47 [facility] Comment on above: Performed By: #### L 500.4050, L100.0100 ####[facility] [address] [place], [address] Hemoglobin (Bld) [Mass/Vol] 14.5 g/dL Normal 12.0-15.0 [facility] Comment on above: Performed By: #### L 500.4050, L100.0100 ####[facility] [address] [place], [address] IG% 0.000 Normal 0.0-0.9 [facility] Comment on above: Result Comment: IG% - Immature Granulocytes (promyelocytes, myelocytes andmetamyelocytes) > 1% indicates that a LEFT SHIFT is Present. Performed By: #### L 500.4050, L100.0100 ####[facility] [address] [place], [address] Lymphocytes/100 WBC (Bld) 39.3 % Normal 19-41 [facility] Comment on above: Performed By: #### L 500.4050, L100.0100 ####[facility] [address] [place], [address] MCH (RBC) [Entitic mass] 31.5 pg Normal 27.0-32.0 [facility] Comment on above: Performed By: #### L 500.4050, L100.0100 ####[facility] [address] [place], [address] MCHC (RBC) [Mass/Vol] 33.0 g/dL Normal 32-36 [facility] Comment on above: Performed By: #### L 500.4050, L100.0100 ####[facility] [address] [place], [address] MCV (RBC) [Entitic vol] 95.7 fL Normal 81-99 [facility] Comment on above: Performed By: #### L 500.4050, L100.0100 ####[facility] [address] [place], [address] Monocytes/100 WBC (Bld) 19.9 % High 0-10 [facility] Comment on above: Performed By: #### L 500.4050, L100.0100 ####[facility] [address] [place], [address] Neutrophils/100 WBC (Bld) 39.4 % Low 47-70 [facility] Comment on above: Performed By: #### L 500.4050, L100.0100 ####[facility] [address] [place], [address] Nucleated RBC (Bld) [#/Vol] 0 10*3/uL Normal 0-5 [facility] Comment on above: Performed By: #### L 500.4050, L100.0100 ####[facility] [address] [place], [address] Platelet mean volume (Bld) [Entitic vol] 11.3 fL Normal 6.2-12.0 [facility] Comment on above: Performed By: #### L 500.4050, L100.0100 ####[facility] [address] [place], [address] Platelets (Bld) [#/Vol] 103 10*3/uL Low 150-450 [facility] Comment on above: Performed By: #### L 500.4050, L100.0100 ####[facility] [address] [place], [address] RBC (Bld) [#/Vol] 4.60 10*6/uL Normal 4.2-5.4 [facility] Comment on above: Performed By: #### L 500.4050, L100.0100 ####[facility] [address] [place], [address] RDW SD 60.5 fl High 35.1-43.9 [facility] Comment on above: Performed By: #### L 500.4050, L100.0100 ####[facility] [address] [place], [address] WBC (Bld) [#/Vol] 2.7 10*3/uL Low 4.4-11.0 [facility] Comment on above: Performed By: #### L 500.4050, L100.0100 ####[facility] [address] [place], [address] Carbon dioxide, total [Moles /volume] in Central venous bloodOrdered By: Leena Serra on 09-29-2024 CO2 [Moles/Vol] 22.7 mmol/L 21.0-32.0 [facility] Chloride assayOrdered By: Wisam Serra on 09-29-2024 Chloride [Moles/Vol] 101 mmol/L 98-108 [facility] Comprehensive Metabolic Prof ilon 09-29-2024 Albumin [Mass/Vol] 4.0 g/dL Normal 3.4-4.8 [facility] Comment on above: Performed By: #### L 500.4050, L100.0100 ####[facility] [address] [place], [address] Albumin/Globulin [Mass ratio] 1.8 {ratio} Normal 0.9-2.4 [facility] Comment on above: Performed By: #### L 500.4050, L100.0100 ####[facility] [address] [place], [address] ALK PHOS 50 U/L Normal 35-104 [facility] Comment on above: Performed By: #### L 500.4050, L100.0100 ####[facility] [address] [place], [address] ALT [Catalytic activity/Vol] 18 U/L Normal <=34 [facility] Comment on above: Performed By: #### L 500.4050, L100.0100 ####[facility] [address] [place], [address] AST [Catalytic activity/Vol] 24 U/L Normal <=31 [facility] Comment on above: Performed By: #### L 500.4050, L100.0100 ####[facility] [address] [place], [address] Bilirubin [Mass/Vol] 0.80 mg/dL Normal 0.00-1.30 [facility] Comment on above: Performed By: #### L 500.4050, L100.0100 ####[facility] [address] [place], [address] BUN/CRE 27.3 RATIO High 10-20 [facility] Comment on above: Performed By: #### L 500.4050, L100.0100 ####[facility] [address] [place], [address] Calcium [Mass/Vol] 9.4 mg/dL Normal 7.6-11.0 [facility] Comment on above: Performed By: #### L 500.4050, L100.0100 ####[facility] [address] [place], [address] Chloride [Moles/Vol] 101 mmol/L Normal 98-108 [facility] Comment on above: Performed By: #### L 500.4050, L100.0100 ####[facility] [address] [place], [address] CO2 [Moles/Vol] 22.7 mmol/L Normal 21.0-32.0 [facility] Comment on above: Performed By: #### L 500.4050, L100.0100 ####[facility] [address] [place], [address] Creatinine [Mass/Vol] 1.14 mg/dL Normal 0.70-1.20 [facility] Comment on above: Performed By: #### L 500.4050, L100.0100 ####[facility] [address] [place], [address] GAP 11 Normal 5-15 [facility] Comment on above: Performed By: #### L 500.4050, L100.0100 ####[facility] [address] [place], [address] GFR/1.73 sq M.predicted among non-blacks MDRD (S/P/Bld) [Vol rate/Area] 46 mL/min/{1.73_m2} Low >60 [facility] Comment on above: Result Comment: mL/m in/1.73m2 CKD-EPI Creatinine Equation (2020) Performed By: #### L 500.4050, L100.0100 ####[facility] [address] [place], [address] Globulin (S) [Mass/Vol] 2.2 g/dL Normal 2.2-4.2 [facility] Comment on above: Performed By: #### L 500.4050, L100.0100 ####[facility] [address] [place], [address] Glucose [Mass/Vol] 104 mg/dL High 70-99 [facility] Comment on above: Performed By: #### L 500.4050, L100.0100 ####[facility] [address] [place], [address] Potassium [Moles/Vol] 4.3 mmol/L Normal 3.3-5.1 [facility] Comment on above: Performed By: #### L 500.4050, L100.0100 ####[facility] [address] [place], [address] Sodium [Moles/Vol] 135 mmol/L Normal 133-145 [facility] Comment on above: Performed By: #### L 500.4050, L100.0100 ####[facility] [address] [place], [address] T PROT 6.2 g/dL Normal 5.9-8.4 [facility] Comment on above: Performed By: #### L 500.4050, L100.0100 ####[facility] [address] [place], [address] Urea nitrogen [Mass/Vol] 31 mg/dL High 4-19 [facility] Comment on above: Performed By: #### L 500.4050, L100.0100 ####[facility] [address] [place], [address] Eosinophil percentageOrdered By: Leena Serra on 09-29-2024 Eosinophils/100 WBC (Bld) 0.7 % 0-5 [facility] Erythrocyte distribution wid th ratioOrdered By: Leena Serra on 09-29-2024 Erythrocyte distribution width (RBC) [Ratio] 17.4 % High 11.6-14.6 [facility] Erythrocyte distribution wid th standard deviationOrdered By: Leena Serra on 09-29-2024 Erythrocyte distribution width (RBC) [Ratio] 60.5 fl High 35.1-43.9 [facility] Glomerular filtration rate ( GFR) estimation/1.73 sq m using serum, plasma, or whole bOrdered By: Leena Serra on 09-29-2024 GFR/1.73 sq M.predicted among non-blacks MDRD (S/P/Bld) [Vol rate/Area] 46 mL/min/{1.73_m2} Low >60 [facility] Comment on above: mL/min/1.73m2 CKD-EP I Creatinine Equation (2020) Hematocrit Auto (Bld) [Volum e fraction]Ordered By: Leena Serra on 09-29-2024 Hematocrit (Bld) [Volume fraction] 44.0 % 37-47 [facility] Hemoglobin measurementOrdere d By: Leena Serra on 09-29-2024 Hemoglobin (Bld) [Mass/Vol] 14.5 g/dL 12.0-15.0 [facility] Immature granulocytes/100 WB C Auto (Bld)Ordered By: Leena Serra on 09-29-2024 Immature granulocytes/100 WBC (Bld) 0.000 % 0.0-0.9 [facility] Comment on above: IG% - Immature Granu locytes (promyelocytes, myelocytes and metamyelocytes) > 1% indicates that a LEFT SHIFT is Present. Laboratory - Chemistry and C hemistry - challengeOrdered By: Leena Serra on 09-29-2024 AST [Catalytic activity/Vol] 24 U/L <32 [facility] MCV (mean corpuscular volume ) determinationOrdered By: Leena Serra on 09-29-2024 MCV (RBC) [Entitic vol] 95.7 fL 81-99 [facility] Mean corpuscular hemoglobin (MCH) determinationOrdered By: Leena Serra on 09-29-2024 MCH (RBC) [Entitic mass] 31.5 pg 27.0-32.0 [facility] Mean corpuscular hemoglobin concentration (MCHC) determinationOrdered By: Leena Serra on 09-29-2024 MCHC (RBC) [Mass/Vol] 33.0 g/dL 32-36 [facility] Mean platelet volume determi nationOrdered By: Leena Serra on 09-29-2024 Platelet mean volume (Bld) [Entitic vol] 11.3 fL 6.2-12.0 [facility] Monocyte percentageOrdered B y: Leena Serra on 09-29-2024 Monocytes/100 WBC (Bld) 19.9 % High 0-10 [facility] Neutrophil percentageOrdered By: Leena Serra on 09-29-2024 Neutrophils/100 WBC (Bld) 39.4 % Low 47-70 [facility] No Panel InformationOrdered By: Leena Serra on 09-29-2024 24 U/L <32 [facility] Nucleated red blood cell per centageOrdered By: Leena Serra on 09-29-2024 Nucleated RBC/100 WBC (Bld) [Ratio] 0 % 0-5 [facility] Platelet countOrdered By: Wisam Serra on 09-29-2024 Platelets (Bld) [#/Vol] 103 10*3/uL Low 150-450 [facility] Potassium measurement (mass/ volume)Ordered By: Leena Serra on 09-29-2024 Potassium (Unsp spec) [Mass/Vol] 4.3 mmol/L 3.3-5.1 [facility] RBC Auto (Bld) [#/Vol]Ordere d By: Leena Serra on 09-29-2024 RBC (Bld) [#/Vol] 4.60 10*6/uL 4.2-5.4 [facility] Serum creatinine measurement (mass/volume)Ordered By: Leena Serra on 09-29-2024 Creatinine [Mass/Vol] 1.14 mg/dL 0.70-1.20 [facility] Serum globulin measurementOr dered By: Leena Serra on 09-29-2024 Globulin (S) [Mass/Vol] 2.2 g/dL 2.2-4.2 [facility] Serum glucose measurement (m ass/volume)Ordered By: Leena Serra on 09-29-2024 Glucose [Mass/Vol] 104 mg/dL High 70-99 [facility] Serum or plasma alanine hay otransferase (ALT) measurementOrdered By: Leena Serra on 09-29-2024 ALT [Catalytic activity/Vol] 18 U/L <35 [facility] Serum or plasma albumin criss urement (mass/volume)Ordered By: Leena Serra on 09-29-2024 Albumin [Mass/Vol] 4.0 g/dL 3.4-4.8 [facility] Serum or plasma albumin/glob ulin mass ratioOrdered By: Leena Serra on 09-29-2024 Albumin/Globulin [Mass ratio] 1.8 {ratio} 0.9-2.4 [facility] Serum or plasma alkaline ezra sphatase measurementOrdered By: Leena Serra on 09-29-2024 ALP [Catalytic activity/Vol] 50 U/L 35-104 [facility] Serum or plasma calcium criss urement (mass/volume)Ordered By: Leena Serra on 09-29-2024 Calcium [Mass/Vol] 9.4 mg/dL 7.6-11.0 [facility] Serum or plasma urea nitroge n measurement (mass/volume)Ordered By: Leena Serra on 09-29-2024 Urea nitrogen [Mass/Vol] 31 mg/dL High 4-19 [facility] Sodium levelOrdered By: Ara Serra on 09-29-2024 Sodium [Moles/Vol] 135 mmol/L 133-145 [facility] Total proteinOrdered By: Yolette Serra on 09-29-2024 Protein [Mass/Vol] 6.2 g/dL 5.9-8.4 [facility] White blood cell (WBC) count Ordered By: Leena Serra on 09-29-2024 WBC (Bld) [#/Vol] 2.7 10*3/uL Low 4.4-11.0 [facility] Cardiology Visit Reporton Cardiology Visit Report Normal [facility] Anion gap in Serum or Plasma Ordered By: Sharad Londono on 07-28-2024 Anion gap [Moles/Vol] 16 mmol/L High - [facility] BUN/creatinine ratioOrdered By: Sharad Londono on 07-28-2024 Urea nitrogen/Creatinine [Mass ratio] 20.0 mg/mg - [facility] Basic Metabolic Profile (BMP )on 07-28-2024 BUN/CRE 20.0 RATIO Normal 02-19 [facility] Comment on above: Performed By: #### L 500.2500 ####[facility] [address] [place], [address] Calcium [Mass/Vol] 8.9 mg/dL Normal 7.6-11.0 [facility] Comment on above: Performed By: #### L 500.2500 ####[facility] [address] [place], [address] Chloride [Moles/Vol] 99 mmol/L Normal 98-108 [facility] Comment on above: Performed By: #### L 500.2500 ####[facility] [address] [place], [address] CO2 [Moles/Vol] 21.1 mmol/L Normal 21.0-32.0 [facility] Comment on above: Performed By: #### L 500.2500 ####[facility] [address] [place], [address] Creatinine [Mass/Vol] 1.05 mg/dL Normal 0.70-1.20 [facility] Comment on above: Performed By: #### L 500.2500 ####[facility] [address] [place], [address] GAP 16 High 5-15 [facility] Comment on above: Performed By: #### L 500.2500 ####[facility] [address] [place], [address] GFR/1.73 sq M.predicted among non-blacks MDRD (S/P/Bld) [Vol rate/Area] 51 mL/min/{1.73_m2} Low >60 [facility] Comment on above: Result Comment: mL/m in/1.73m2 CKD-EPI Creatinine Equation (2020) Performed By: #### L 500.2500 ####[facility] [address] [place], [address] Glucose [Mass/Vol] 102 mg/dL High 70-99 [facility] Comment on above: Performed By: #### L 500.2500 ####[facility] [address] [place], [address] Potassium [Moles/Vol] 4.0 mmol/L Normal 3.3-5.1 [facility] Comment on above: Result Comment: Hemo lysis present, Results??could be affected.?? Performed By: #### L 500.2500 ####[facility] [address] [place], [place], [address](307) Sodium [Moles/Vol] 136 mmol/L Normal 133-145 [facility] Comment on above: Performed By: #### L 500.2500 ####[facility] [address] [place], [address] Urea nitrogen [Mass/Vol] 21 mg/dL High 4-19 [facility] Comment on above: Performed By: #### L 500.2500 ####[facility] [address] [place], [place], [address] Carbon dioxide, total [Moles /volume] in Central venous bloodOrdered By: Sharad Londono on 07-28-2024 CO2 [Moles/Vol] 21.1 mmol/L 21.0-32.0 [facility] Chloride assayOrdered By: Hailee Londono on 07-28-2024 Chloride [Moles/Vol] 99 mmol/L 98-108 [facility] GFR/1.73 sq M.predicted mario g non-blacks MDRD (S/P/Bld) [Vol rate/Area]Ordered By: Sharad Londono on 07-28-2024 Estimated GFR (MDRD) Non-Af Amer 51 Low >60 [facility] Comment on above: mL/min/1.73m2 CKD-EP I Creatinine Equation (2020) Glomerular filtration rate ( GFR) estimation/1.73 sq m using serum, plasma, or whole bOrdered By: Sharad Londono on 07-28-2024 GFR/1.73 sq M.predicted among non-blacks MDRD (S/P/Bld) [Vol rate/Area] 51 mL/min/{1.73_m2} Low >60 [facility] Comment on above: mL/min/1.73m2 CKD-EP I Creatinine Equation (2020) Potassium (Unsp spec) [Mass/ Vol]Ordered By: Sharad Londono on 07-28-2024 Potassium [Moles/Vol] 4.0 mmol/L 3.3-5.1 [facility] Comment on above: Hemolysis present, R esults could be affected. Potassium measurement (mass/ volume)Ordered By: Sharad Londono on 07-28-2024 Potassium (Unsp spec) [Mass/Vol] 4.0 mmol/L 3.3-5.1 [facility] Comment on above: Hemolysis present, R esults could be affected. Serum creatinine measurement (mass/volume)Ordered By: Sharad Londono on 07-28-2024 Creatinine [Mass/Vol] 1.05 mg/dL 0.70-1.20 [facility] Serum glucose measurement (m ass/volume)Ordered By: Sharad Londono on 07-28-2024 Glucose [Mass/Vol] 102 mg/dL High 70-99 [facility] Serum or plasma calcium criss urement (mass/volume)Ordered By: Sharad Londono on 07-28-2024 Calcium [Mass/Vol] 8.9 mg/dL 7.6-11.0 [facility] Serum or plasma urea nitroge n measurement (mass/volume)Ordered By: Sharad Londono on 07-28-2024 Urea nitrogen [Mass/Vol] 21 mg/dL High 4-19 [facility] Sodium levelOrdered By: Sharad Londono on 07-28-2024 Sodium [Moles/Vol] 136 mmol/L 133-145 [facility] Absolute lymphocyte countOrd ered By: Anant Cooper on 07-23-2024 Lymphocytes Auto (Unsp spec) [#/Vol] 0.73 10*3/uL Low 0.83-4.51 [facility] Absolute neutrophil countOrd ered By: Anant Cooper on 07-23-2024 Neutrophils (Bld) [#/Vol] 10.8 10*3/uL High 2.0-7.7 [facility] Anion gap in Serum or Plasma Ordered By: Anant Cooper on 07-23-2024 Anion gap [Moles/Vol] 15 mmol/L 5-15 [facility] Automated lymphocyte count a s percentage of total leukocytesOrdered By: Anant Cooper on 07-23-2024 Lymphocytes/100 WBC Auto (Unsp spec) 5.7 % Low 19-41 [facility] BUN/creatinine ratioOrdered By: Anant Cooper on 07-23-2024 Urea nitrogen/Creatinine [Mass ratio] 33.3 mg/mg High 10-20 [facility] Basic Metabolic Profile (BMP )on 07-23-2024 BUN/CRE 33.3 RATIO High 10-20 [facility] Comment on above: Performed By: #### L 500.2500, L100.0100 ####[facility] [address] [place], [address] Calcium [Mass/Vol] 9.2 mg/dL Normal 7.6-11.0 [facility] Comment on above: Performed By: #### L 500.2500, L100.0100 ####[facility] [address] [place], [address] Chloride [Moles/Vol] 94 mmol/L Low 98-108 [facility] Comment on above: Performed By: #### L 500.2500, L100.0100 ####[facility] [address] [place], [address] CO2 [Moles/Vol] 18.3 mmol/L Low 21.0-32.0 [facility] Comment on above: Performed By: #### L 500.2500, L100.0100 ####[facility] [address] [place], [address] Creatinine [Mass/Vol] 1.23 mg/dL High 0.70-1.20 [facility] Comment on above: Performed By: #### L 500.2500, L100.0100 ####[facility] [address] [place], [address] ECRCL 29.00 ml/min Low 50-250 [facility] Comment on above: Performed By: #### L 500.2500, L100.0100 ####[facility] [address] [place], [address] GAP 15 Normal 5-15 [facility] Comment on above: Performed By: #### L 500.2500, L100.0100 ####[facility] [address] [place], [address] GFR/1.73 sq M.predicted among non-blacks MDRD (S/P/Bld) [Vol rate/Area] 43 mL/min/{1.73_m2} Low >60 [facility] Comment on above: Result Comment: mL/m in/1.73m2 CKD-EPI Creatinine Equation (2020) Performed By: #### L 500.2500, L100.0100 ####[facility] [address] [place], [address] Glucose [Mass/Vol] 109 mg/dL High 70-99 [facility] Comment on above: Performed By: #### L 500.2500, L100.0100 ####[facility] [address] [place], [address] Potassium [Moles/Vol] 4.7 mmol/L Normal 3.3-5.1 [facility] Comment on above: Performed By: #### L 500.2500, L100.0100 ####[facility] [address] [place], [address] Sodium [Moles/Vol] 128 mmol/L Low 133-145 [facility] Comment on above: Performed By: #### L 500.2500, L100.0100 ####[facility] [address] [place], [address] Urea nitrogen [Mass/Vol] 41 mg/dL High 4-19 [facility] Comment on above: Performed By: #### L 500.2500, L100.0100 ####[facility] [address] [place], [address] Basophil percentageOrdered B y: Anant Cooper on 07-23-2024 Basophils/100 WBC (Bld) 0.2 % 0-1 [facility] Bilirubin Test strip Ql (U)O rdered By: Anant Cooper on 07-23-2024 Bilirubin Ql (U) Negative Negative [facility] Brain/Head without Contrasto n 07-23-2024 Brain/Head without Contrast Normal [facility] CBC W/Diff, Automatedon 07-02 Absolute Lymph 0.73 X10 3/uL Low 0.83-4.51 [facility] Comment on above: Performed By: #### L 500.2500, L100.0100 ####[facility] [address] [place], [address] Absolute Neut 10.8 X10 3/uL High 2.0-7.7 [facility] Comment on above: Performed By: #### L 500.2500, L100.0100 ####[facility] [address] [place], [address] Basophils/100 WBC (Bld) 0.2 % Normal 0-1 [facility] Comment on above: Performed By: #### L 500.2500, L100.0100 ####[facility] [address] [place], [address] Eosinophils/100 WBC (Bld) 0.0 % Normal 0-5 [facility] Comment on above: Performed By: #### L 500.2500, L100.0100 ####[facility] [address] [place], [address] Erythrocyte distribution width (RBC) [Ratio] 14.4 % Normal 11.6-14.6 [facility] Comment on above: Performed By: #### L 500.2500, L100.0100 ####[facility] [address] [place], [address] Hematocrit (Bld) [Volume fraction] 47.1 % High 37-47 [facility] Comment on above: Performed By: #### L 500.2500, L100.0100 ####[facility] [address] [place], [address] Hemoglobin (Bld) [Mass/Vol] 15.9 g/dL High 12.0-15.0 [facility] Comment on above: Performed By: #### L 500.2500, L100.0100 ####[facility] [address] [place], [address] IG% 0.500 Normal 0.0-0.9 [facility] Comment on above: Result Comment: IG% - Immature Granulocytes (promyelocytes, myelocytes andmetamyelocytes) > 1% indicates that a LEFT SHIFT is Present. Performed By: #### L 500.2500, L100.0100 ####[facility] [address] [place], [address] Lymphocytes/100 WBC (Bld) 5.7 % Low 19-41 [facility] Comment on above: Performed By: #### L 500.2500, L100.0100 ####[facility] [address] [place], [address] MCH (RBC) [Entitic mass] 32.0 pg Normal 27.0-32.0 [facility] Comment on above: Performed By: #### L 500.2500, L100.0100 ####[facility] [address] [place], [address] MCHC (RBC) [Mass/Vol] 33.8 g/dL Normal 32-36 [facility] Comment on above: Performed By: #### L 500.2500, L100.0100 ####[facility] [address] [place], [address] MCV (RBC) [Entitic vol] 94.8 fL Normal 81-99 [facility] Comment on above: Performed By: #### L 500.2500, L100.0100 ####[facility] [address] [place], [address] Monocytes/100 WBC (Bld) 9.5 % Normal 0-10 [facility] Comment on above: Performed By: #### L 500.2500, L100.0100 ####[facility] [address] [place], [address] Neutrophils/100 WBC (Bld) 84.1 % High 47-70 [facility] Comment on above: Performed By: #### L 500.2500, L100.0100 ####[facility] [address] [place], [address] Nucleated RBC (Bld) [#/Vol] 0 10*3/uL Normal 0-5 [facility] Comment on above: Performed By: #### L 500.2500, L100.0100 ####[facility] [address] [place], [address] Platelet mean volume (Bld) [Entitic vol] 11.6 fL Normal 6.2-12.0 [facility] Comment on above: Performed By: #### L 500.2500, L100.0100 ####[facility] [address] [place], [address] Platelets (Bld) [#/Vol] 111 10*3/uL Low 150-450 [facility] Comment on above: Performed By: #### L 500.2500, L100.0100 ####[facility] [address] [place], [address] RBC (Bld) [#/Vol] 4.97 10*6/uL Normal 4.2-5.4 [facility] Comment on above: Performed By: #### L 500.2500, L100.0100 ####[facility] [id number] [place], [address] RDW SD 50.2 fl High 35.1-43.9 [facility] Comment on above: Performed By: #### L 500.2500, L100.0100 ####[facility] [address] [place], [address] WBC (Bld) [#/Vol] 12.9 10*3/uL High 4.4-11.0 [facility] Comment on above: Performed By: #### L 500.2500, L100.0100 ####[facility] [address] [place], [address] Carbon dioxide, total [Moles /volume] in Central venous bloodOrdered By: Anantkarla Anneo on 07-23-2024 CO2 [Moles/Vol] 18.3 mmol/L Low 21.0-32.0 [facility] Chloride assayOrdered By: Ug karla Cooper on 07-23-2024 Chloride [Moles/Vol] 94 mmol/L Low 98-108 [facility] Emergency Department Summary on 07-23-2024 Emergency Department Summary Normal [facility] Eosinophil percentageOrdered By: Anantkarla Cooper on 07-23-2024 Eosinophils/100 WBC (Bld) 0.0 % 0-5 [facility] Epithelial cells.squamous LM Ql (Urine sed)Ordered By: Anantkarla Cooper on 07-23-2024 Epithelial cells.squamous LM.HPF (Urine sed) [#/Area] 0 /[HPF] 5-10 [facility] Erythrocyte distribution wid th ratioOrdered By: Anant Cooper on 07-23-2024 Erythrocyte distribution width (RBC) [Ratio] 14.4 % 11.6-14.6 [facility] Erythrocyte distribution wid th standard deviationOrdered By: Anant Cooper on 07-23-2024 Erythrocyte distribution width (RBC) [Entitic vol] 50.2 fL High 35.1-43.9 [facility] Erythrocyte distribution width (RBC) [Ratio] 50.2 fl High 35.1-43.9 [facility] Estimation of creatinine douglas aranceOrdered By: Anant Cooper on 07-23-2024 Estimated Creatinine Clearance Calc 29.00 ml/min Low 50-250 [facility] GFR/1.73 sq M.predicted mario g non-blacks MDRD (S/P/Bld) [Vol rate/Area]Ordered By: Anant Cooper on 07-23-2024 Estimated GFR (MDRD) Non-Af Amer 43 Low >60 [facility] Comment on above: mL/min/1.73m2 CKD-EP I Creatinine Equation (2020) Glomerular filtration rate ( GFR) estimation/1.73 sq m using serum, plasma, or whole bOrdered By: Anant Cooper on 07-23-2024 GFR/1.73 sq M.predicted among non-blacks MDRD (S/P/Bld) [Vol rate/Area] 43 mL/min/{1.73_m2} Low >60 [facility] Comment on above: mL/min/1.73m2 CKD-EP I Creatinine Equation (2020) Glucose Ql (U)Ordered By: Shyla Cooper on 07-23-2024 Glucose (U) [Mass/Vol] 1000 mg/dL High Normal [facility] Hematocrit Auto (Bld) [Volum e fraction]Ordered By: Anant Cooper on 07-23-2024 Hematocrit (Bld) [Volume fraction] 47.1 % High 37-47 [facility] Hemoglobin measurementOrdere d By: Anant Cooper on 07-23-2024 Hemoglobin (Bld) [Mass/Vol] 15.9 g/dL High 12.0-15.0 [facility] Immature granulocytes/100 WB C Auto (Bld)Ordered By: Anant Cooper on 07-23-2024 Immature granulocytes/100 WBC (Bld) 0.500 % 0.0-0.9 [facility] Comment on above: IG% - Immature Granu locytes (promyelocytes, myelocytes and metamyelocytes) > 1% indicates that a LEFT SHIFT is Present. Ketones Test strip Ql (U)Ord ered By: Anant Cooper on 07-23-2024 Ketones Ql (U) Negative Negative [facility] Lymphocytes Auto (Unsp spec) [#/Vol]Ordered By: Anant Cooper on 07-23-2024 Lymphocytes (Bld) [#/Vol] 0.73 10*3/uL Low 0.83-4.51 [facility] Lymphocytes/100 WBC Auto (Un sp spec)Ordered By: Anant Cooper on 07-23-2024 Lymphocytes/100 WBC (Bld) 5.7 % Low 19-41 [facility] MCV (mean corpuscular volume ) determinationOrdered By: Anant Cooper on 07-23-2024 MCV (RBC) [Entitic vol] 94.8 fL 81-99 [facility] Mean corpuscular hemoglobin (MCH) determinationOrdered By: Anant Cooper on 07-23-2024 MCH (RBC) [Entitic mass] 32.0 pg 27.0-32.0 [facility] Mean corpuscular hemoglobin concentration (MCHC) determinationOrdered By: Anant Cooper on 07-23-2024 MCHC (RBC) [Mass/Vol] 33.8 g/dL 32-36 [facility] Mean platelet volume determi nationOrdered By: Anant Cooper on 07-23-2024 Platelet mean volume (Bld) [Entitic vol] 11.6 fL 6.2-12.0 [facility] Microscopic analysis of urin e for red blood cells (RBC)Ordered By: Anant Cooper on 07-23-2024 Microscopic analysis of urine for red blood cells (RBC) 0-5 SEEN /hpf 0-5 [facility] Urine RBC 0-5 SEEN /hpf 0-5 [facility] Monocyte percentageOrdered B y: Anant Cooper on 07-23-2024 Monocytes/100 WBC (Bld) 9.5 % 0-10 [facility] Mucus LM Ql (Urine sed)Order ed By: Anant Cooper on 07-23-2024 Mucus Ql (Urine sed) 0 SEEN /hpf [facility] Neutrophil percentageOrdered By: Anant Cooper on 07-23-2024 Neutrophils/100 WBC (Bld) 84.1 % High 47-70 [facility] Nitrite Test strip Ql (U)Ord ered By: Anant Cooper on 07-23-2024 Nitrite Ql (U) Negative Negative [facility] Nucleated red blood cell per centageOrdered By: Anant Cooper on 07-23-2024 Nucleated RBC/100 WBC (Bld) [Ratio] 0 % 0-5 [facility] Platelet countOrdered By: Shyla Cooper on 07-23-2024 Platelets (Bld) [#/Vol] 111 10*3/uL Low 150-450 [facility] Potassium (Unsp spec) [Mass/ Vol]Ordered By: Anant Cooper on 07-23-2024 Potassium [Moles/Vol] 4.7 mmol/L 3.3-5.1 [facility] Potassium measurement (mass/ volume)Ordered By: Anant Cooper on 07-23-2024 Potassium (Unsp spec) [Mass/Vol] 4.7 mmol/L 3.3-5.1 [facility] Protein Test strip Ql (U)Ord ered By: Anant Cooper on 07-23-2024 Protein Ql (U) 30 mg/dl High Negative [facility] RBC Auto (Bld) [#/Vol]Ordere d By: Anant Cooper on 07-23-2024 RBC (Bld) [#/Vol] 4.97 10*6/uL 4.2-5.4 [facility] Serum creatinine measurement (mass/volume)Ordered By: Anant Cooper on 07-23-2024 Creatinine [Mass/Vol] 1.23 mg/dL High 0.70-1.20 [facility] Serum glucose measurement (m ass/volume)Ordered By: Anant Cooper on 07-23-2024 Glucose [Mass/Vol] 109 mg/dL High 70-99 [facility] Serum or plasma calcium criss urement (mass/volume)Ordered By: Anant Cooper on 07-23-2024 Calcium [Mass/Vol] 9.2 mg/dL 7.6-11.0 [facility] Serum or plasma urea nitroge n measurement (mass/volume)Ordered By: Anant Cooper on 07-23-2024 Urea nitrogen [Mass/Vol] 41 mg/dL High 4-19 [facility] Sodium levelOrdered By: Anantkarla Cooper on 07-23-2024 Sodium [Moles/Vol] 128 mmol/L Low 133-145 [facility] Spine Cervical without Contr ason 07-23-2024 Spine Cervical without Contras Normal [facility] Squamous epithelial cells de tection in urine sediment by light microscopyOrdered By: Anant Cooper on 07-23-2024 Epithelial cells.squamous LM Ql (Urine sed) 0-5 SEEN /hpf 5-10 [facility] Urinalysis, Completeon 07-23 EPI,SQUAMOUS 0-5 SEEN Normal 5-10 [facility] Comment on above: Order Comment: Strai ght cath if not able to stand to perform CCCLEAN CATCH Performed By: #### L 400.0001 ####[facility] [address] [place], [address] RBC 0-5 SEEN Normal 0-5 [facility] Comment on above: Order Comment: Strai ght cath if not able to stand to perform CCCLEAN CATCH Performed By: #### L 400.0001 ####[facility] [address] [place], [address] BACTERIA 0 SEEN Normal None Seen [facility] Comment on above: Order Comment: Strai ght cath if not able to stand to perform CCCLEAN CATCH Performed By: #### L 400.0001 ####[facility] [address] [place], [address] Mucus Ql (Urine sed) 0 SEEN Normal [facility] Comment on above: Order Comment: Strai ght cath if not able to stand to perform CCCLEAN CATCH Performed By: #### L 400.0001 ####[facility] [address] [place], [address] WBC 0 SEEN Normal 0-5 [facility] Comment on above: Order Comment: Strai ght cath if not able to stand to perform CCCLEAN CATCH Performed By: #### L 400.0001 ####[facility] [address] [place], [address] Urine blood detectionOrdered By: Anant Cooper on 07-23-2024 Urine Occult Blood 25 /ul High Negative [facility] Urine clarityOrdered By: Anant Cooper on 07-23-2024 Clarity (U) Clear Clear [facility] Urine color determinationOrd ered By: Anant Kenneth on 07-23-2024 Color (U) Yellow Yellow [facility] Urine glucose detectionOrder ed By: Anant Cooper on 07-23-2024 Glucose Ql (U) 1000 mg/dl High Normal [facility] Urine leukocyte esterase det ection by dipstickOrdered By: Anant Cooper on 07-23-2024 Leukocyte esterase Test strip Ql (U) Negative Negative [facility] Urine pHOrdered By: Anant cuenca on 07-23-2024 pH (U) 5.0 [pH] 5.0 - 8.0 [facility] Urine sediment bacteria coun t by microscopy (number/high power field)Ordered By: Anant Cooper on 07-23-2024 Bacteria LM.HPF (Urine sed) [#/Area] 0 /[HPF] None Seen [facility] Urine specific gravity measu rementOrdered By: Anantkarla Cooper on 07-23-2024 Specific gravity (U) [Rel density] 1.015 1.002-1.03 0 [facility] Urine urobilinogen measureme ntOrdered By: Anant Cooper on 07-23-2024 Urobilinogen Ql (U) Normal mg/dl Normal [facility] Urobilinogen Ql (U)Ordered B y: Anant Cooper on 07-23-2024 Urine Urobilinogen Normal mg/dl Normal [facility] White blood cell (WBC) count Ordered By: Anant Cooper on 07-23-2024 WBC (Bld) [#/Vol] 12.9 10*3/uL High 4.4-11.0 [facility] White blood cell countOrdere d By: Anant Cooper on 07-23-2024 Urine WBC 0 SEEN /hpf 0-5 [facility] White blood cell count 0 SEEN /hpf 0-5 [facility] Absolute lymphocyte countOrd ered By: Holli Gaona on 07-22-2024 Lymphocytes Auto (Unsp spec) [#/Vol] 0.69 10*3/uL Low 0.83-4.51 [facility] Absolute neutrophil countOrd ered By: Holli Gaona on 07-22-2024 Neutrophils (Bld) [#/Vol] 6.2 10*3/uL 2.0-7.7 [facility] Anion gap in Serum or Plasma Ordered By: Holli Gaona on 07-22-2024 Anion gap [Moles/Vol] 15 mmol/L 5-15 [facility] Automated lymphocyte count a s percentage of total leukocytesOrdered By: Holli Gaona on 07-22-2024 Lymphocytes/100 WBC Auto (Unsp spec) 9.2 % Low 19-41 [facility] BUN/creatinine ratioOrdered By: Holli Gaona on 07-22-2024 Urea nitrogen/Creatinine [Mass ratio] 27.6 mg/mg High 10- [facility] Basic Metabolic Profile (BMP )on 07-22-2024 BUN/CRE 27.6 RATIO High 10- [facility] Comment on above: Performed By: #### L 500.2500, L503.7505, L100.0100 ####[facility] [address] [place], [address] Calcium [Mass/Vol] 9.2 mg/dL Normal 7.6-11.0 [facility] Comment on above: Performed By: #### L 500.2500, L503.7505, L100.0100 ####[facility] [address] [place], [address] Chloride [Moles/Vol] 95 mmol/L Low 98-108 [facility] Comment on above: Performed By: #### L 500.2500, L503.7505, L100.0100 ####[facility] [address] [place], [address] CO2 [Moles/Vol] 20.1 mmol/L Low 21.0-32.0 [facility] Comment on above: Performed By: #### L 500.2500, L503.7505, L100.0100 ####[facility] [address] [place], [address] Creatinine [Mass/Vol] 1.17 mg/dL Normal 0.70-1.20 [facility] Comment on above: Performed By: #### L 500.2500, L503.7505, L100.0100 ####[facility] [address] [place], [address] GAP 15 Normal 5-15 [facility] Comment on above: Performed By: #### L 500.2500, L503.7505, L100.0100 ####[facility] [address] [place], [address] GFR/1.73 sq M.predicted among non-blacks MDRD (S/P/Bld) [Vol rate/Area] 45 mL/min/{1.73_m2} Low >60 [facility] Comment on above: Result Comment: mL/m in/1.73m2 CKD-EPI Creatinine Equation (2020) Performed By: #### L 500.2500, L503.7505, L100.0100 ####[facility] [address] [place], [address] Glucose [Mass/Vol] 182 mg/dL High 70-99 [facility] Comment on above: Performed By: #### L 500.2500, L503.7505, L100.0100 ####[facility] [address] [place], [address] Potassium [Moles/Vol] 4.9 mmol/L Normal 3.3-5.1 [facility] Comment on above: Performed By: #### L 500.2500, L503.7505, L100.0100 ####[facility] [address] [place], [address] Sodium [Moles/Vol] 130 mmol/L Low 133-145 [facility] Comment on above: Performed By: #### L 500.2500, L503.7505, L100.0100 ####[facility] [address] [place], [address] Urea nitrogen [Mass/Vol] 32 mg/dL High 4-19 [facility] Comment on above: Performed By: #### L 500.2500, L503.7505, L100.0100 ####[facility] [address] [place], [address] Basophil percentageOrdered B y: Holli Gaona on 07-22-2024 Basophils/100 WBC (Bld) 0.4 % 0-1 [facility] CBC W/Diff, Automatedon 07-02 Absolute Lymph 0.69 X10 3/uL Low 0.83-4.51 [facility] Comment on above: Performed By: #### L 500.2500, L503.7505, L100.0100 ####[facility] [address] [place], [address] Absolute Neut 6.2 X10 3/uL Normal 2.0-7.7 [facility] Comment on above: Performed By: #### L 500.2500, L503.7505, L100.0100 ####[facility] [address] [place], [address] Basophils/100 WBC (Bld) 0.4 % Normal 0-1 [facility] Comment on above: Performed By: #### L 500.2500, L503.7505, L100.0100 ####[facility] [address] [place], [address] Eosinophils/100 WBC (Bld) 0.3 % Normal 0-5 [facility] Comment on above: Performed By: #### L 500.2500, L503.7505, L100.0100 ####[facility] [address] [place], [address] Erythrocyte distribution width (RBC) [Ratio] 14.3 % Normal 11.6-14.6 [facility] Comment on above: Performed By: #### L 500.2500, L503.7505, L100.0100 ####[facility] [address] [place], [address] Hematocrit (Bld) [Volume fraction] 48.4 % High 37-47 [facility] Comment on above: Performed By: #### L 500.2500, L503.7505, L100.0100 ####[facility] [address] [place], [address] Hemoglobin (Bld) [Mass/Vol] 16.1 g/dL High 12.0-15.0 [facility] Comment on above: Performed By: #### L 500.2500, L503.7505, L100.0100 ####[facility] [address] [place], [address] IG% 0.300 Normal 0.0-0.9 [facility] Comment on above: Result Comment: IG% - Immature Granulocytes (promyelocytes, myelocytes andmetamyelocytes) > 1% indicates that a LEFT SHIFT is Present. Performed By: #### L 500.2500, L503.7505, L100.0100 ####[facility] [address] [place], [address] Lymphocytes/100 WBC (Bld) 9.2 % Low 19-41 [facility] Comment on above: Performed By: #### L 500.2500, L503.7505, L100.0100 ####[facility] [address] [place], [address] MCH (RBC) [Entitic mass] 32.1 pg High 27.0-32.0 [facility] Comment on above: Performed By: #### L 500.2500, L503.7505, L100.0100 ####[facility] [address] [place], [address] MCHC (RBC) [Mass/Vol] 33.3 g/dL Normal 32-36 [facility] Comment on above: Performed By: #### L 500.2500, L503.7505, L100.0100 ####[facility] [address] [place], [address] MCV (RBC) [Entitic vol] 96.6 fL Normal 81-99 [facility] Comment on above: Performed By: #### L 500.2500, L503.7505, L100.0100 ####[facility] [address] [place], [address] Monocytes/100 WBC (Bld) 8.1 % Normal 0-10 [facility] Comment on above: Performed By: #### L 500.2500, L503.7505, L100.0100 ####[facility] [address] [place], [address] Neutrophils/100 WBC (Bld) 81.7 % High 47-70 [facility] Comment on above: Performed By: #### L 500.2500, L503.7505, L100.0100 ####[facility] [address] [place], [address] Nucleated RBC (Bld) [#/Vol] 0 10*3/uL Normal 0-5 [facility] Comment on above: Performed By: #### L 500.2500, L503.7505, L100.0100 ####[facility] [address] [place], [address] Platelet mean volume (Bld) [Entitic vol] 11.2 fL Normal 6.2-12.0 [facility] Comment on above: Performed By: #### L 500.2500, L503.7505, L100.0100 ####[facility] [address] [place], [address] Platelets (Bld) [#/Vol] 122 10*3/uL Low 150-450 [facility] Comment on above: Performed By: #### L 500.2500, L503.7505, L100.0100 ####[facility] [address] [place], [address] RBC (Bld) [#/Vol] 5.01 10*6/uL Normal 4.2-5.4 [facility] Comment on above: Performed By: #### L 500.2500, L503.7505, L100.0100 ####[facility] [address] [place], [address] RDW SD 50.8 fl High 35.1-43.9 [facility] Comment on above: Performed By: #### L 500.2500, L503.7505, L100.0100 ####[facility] [address] [place], [address] WBC (Bld) [#/Vol] 7.5 10*3/uL Normal 4.4-11.0 [facility] Comment on above: Performed By: #### L 500.2500, L503.7505, L100.0100 ####[facility] [address] [place], [address] Carbon dioxide, total [Moles /volume] in Central venous bloodOrdered By: Holli Gaona on 07-22-2024 CO2 [Moles/Vol] 20.1 mmol/L Low 21.0-32.0 [facility] Chloride assayOrdered By: Michaela Gaona on 07-22-2024 Chloride [Moles/Vol] 95 mmol/L Low 98-108 [facility] Eosinophil percentageOrdered By: Holli Gaona on 07-22-2024 Eosinophils/100 WBC (Bld) 0.3 % 0-5 [facility] Erythrocyte distribution wid th ratioOrdered By: Holli Gaona on 07-22-2024 Erythrocyte distribution width (RBC) [Ratio] 14.3 % 11.6-14.6 [facility] Erythrocyte distribution wid th standard deviationOrdered By: Holli Gaona on 07-22-2024 Erythrocyte distribution width (RBC) [Entitic vol] 50.8 fL High 35.1-43.9 [facility] Erythrocyte distribution width (RBC) [Ratio] 50.8 fl High 35.1-43.9 [facility] GFR/1.73 sq M.predicted mario g non-blacks MDRD (S/P/Bld) [Vol rate/Area]Ordered By: Holli Gaona on 07-22-2024 Estimated GFR (MDRD) Non-Af Amer 45 Low >60 [facility] Comment on above: mL/min/1.73m2 CKD-EP I Creatinine Equation (2020) Glomerular filtration rate ( GFR) estimation/1.73 sq m using serum, plasma, or whole bOrdered By: Holli Gaona on 07-22-2024 GFR/1.73 sq M.predicted among non-blacks MDRD (S/P/Bld) [Vol rate/Area] 45 mL/min/{1.73_m2} Low >60 [facility] Comment on above: mL/min/1.73m2 CKD-EP I Creatinine Equation (2020) Hematocrit Auto (Bld) [Volum e fraction]Ordered By: Holli Gaona on 07-22-2024 Hematocrit (Bld) [Volume fraction] 48.4 % High 37-47 [facility] Hemoglobin measurementOrdere d By: Holli Gaona on 07-22-2024 Hemoglobin (Bld) [Mass/Vol] 16.1 g/dL High 12.0-15.0 [facility] Immature granulocytes/100 WB C Auto (Bld)Ordered By: Holli Gaona on 07-22-2024 Immature granulocytes/100 WBC (Bld) 0.300 % 0.0-0.9 [facility] Comment on above: IG% - Immature Granu locytes (promyelocytes, myelocytes and metamyelocytes) > 1% indicates that a LEFT SHIFT is Present. L503.7505on 07-22-2024 Natriuretic peptide B (Bld) [Mass/Vol] 57354 pg/mL High <=1800 [facility] Comment on above: Result Comment: Hear t Failure Unlikely: < 300 pg/mLHeart Failure Likely< 50 Years: > 450 pg/mL50-75 Years: > 900 pg/mL>75 Years: > 1800 pg/mL Performed By: #### L 500.2500, L503.7505, L100.0100 ####[facility] [address] [place], [place], [id number] Laboratory - Chemistry and C hemistry - challengeOrdered By: Holli Gaona on 07-22-2024 Natriuretic peptide B (Bld) [Mass/Vol] 12656 pg/mL High <1800 [facility] Comment on above: Heart Failure Unlike ly: < 300 pg/mLHeart Failure Likely< 50 Years: > 450 pg/mL50-75 Years: > 900 pg/mL>75 Years: > 1800 pg/mL Lymphocytes Auto (Unsp spec) [#/Vol]Ordered By: Holli Gaona on 07-22-2024 Lymphocytes (Bld) [#/Vol] 0.69 10*3/uL Low 0.83-4.51 [facility] Lymphocytes/100 WBC Auto (Un sp spec)Ordered By: Holli Gaona on 07-22-2024 Lymphocytes/100 WBC (Bld) 9.2 % Low 19-41 [facility] MCV (mean corpuscular volume ) determinationOrdered By: Holli aGona on 07-22-2024 MCV (RBC) [Entitic vol] 96.6 fL 81-99 [facility] Mean corpuscular hemoglobin (MCH) determinationOrdered By: Holli Gaona on 07-22-2024 MCH (RBC) [Entitic mass] 32.1 pg High 27.0-32.0 [facility] Mean corpuscular hemoglobin concentration (MCHC) determinationOrdered By: Holli Gaona on 07-22-2024 MCHC (RBC) [Mass/Vol] 33.3 g/dL 32-36 [facility] Mean platelet volume determi nationOrdered By: Holli Gaona on 07-22-2024 Platelet mean volume (Bld) [Entitic vol] 11.2 fL 6.2-12.0 [facility] Monocyte percentageOrdered B y: Holli Gaona on 07-22-2024 Monocytes/100 WBC (Bld) 8.1 % 0-10 [facility] Neutrophil percentageOrdered By: Holli Gaona on 07-22-2024 Neutrophils/100 WBC (Bld) 81.7 % High 47-70 [facility] Nucleated red blood cell per centageOrdered By: Holli Gaona on 07-22-2024 Nucleated RBC/100 WBC (Bld) [Ratio] 0 % 0-5 [facility] Platelet countOrdered By: Michaela Gaona on 07-22-2024 Platelets (Bld) [#/Vol] 122 10*3/uL Low 150-450 [facility] Potassium (Unsp spec) [Mass/ Vol]Ordered By: Holli Gaona on 07-22-2024 Potassium [Moles/Vol] 4.9 mmol/L 3.3-5.1 [facility] Potassium measurement (mass/ volume)Ordered By: Holli Gaona on 07-22-2024 Potassium (Unsp spec) [Mass/Vol] 4.9 mmol/L 3.3-5.1 [facility] RBC Auto (Bld) [#/Vol]Ordere d By: Holli Gaona on 07-22-2024 RBC (Bld) [#/Vol] 5.01 10*6/uL 4.2-5.4 [facility] Serum creatinine measurement (mass/volume)Ordered By: Holli Gaona on 07-22-2024 Creatinine [Mass/Vol] 1.17 mg/dL 0.70-1.20 [facility] Serum glucose measurement (m ass/volume)Ordered By: Holli Gaona on 07-22-2024 Glucose [Mass/Vol] 182 mg/dL High 70-99 [facility] Serum or plasma calcium criss urement (mass/volume)Ordered By: Holli Gaona on 07-22-2024 Calcium [Mass/Vol] 9.2 mg/dL 7.6-11.0 [facility] Serum or plasma urea nitroge n measurement (mass/volume)Ordered By: Holli Gaona on 07-22-2024 Urea nitrogen [Mass/Vol] 32 mg/dL High 4-19 [facility] Sodium levelOrdered By: Trell Gaona on 07-22-2024 Sodium [Moles/Vol] 130 mmol/L Low 133-145 [facility] White blood cell (WBC) count Ordered By: Holli Gaona on 07-22-2024 WBC (Bld) [#/Vol] 7.5 10*3/uL 4.4-11.0 [facility] Basic Metabolic Profile (BMP )on 07-21-2024 BUN Normal 4-19 [facility] Comment on above: Result Comment: UTOX 2 Performed By: #### L 100.0100, L500.2500 ####[facility] [address] [place], [address] BUN/CRE Normal 10-20 [facility] Comment on above: Result Comment: UTOX 2 Performed By: #### L 100.0100, L500.2500 ####[facility] [address] [place], [address] Calcium Normal 7.6-11.0 [facility] Comment on above: Result Comment: UTOX 2 Performed By: #### L 100.0100, L500.2500 ####[facility] [address] [place], [address] CL Normal 98-108 [facility] Comment on above: Result Comment: UTOX 2 Performed By: #### L 100.0100, L500.2500 ####[facility] [address] [place], [address] CO2 Normal 21.0-32.0 [facility] Comment on above: Result Comment: UTOX 2 Performed By: #### L 100.0100, L500.2500 ####[facility] [address] [place], [address] CREAT,SERUM Normal 0.70-1.20 [facility] Comment on above: Result Comment: UTOX 2 Performed By: #### L 100.0100, L500.2500 ####[facility] [address] [place], [address] eGFR Normal >60 [facility] Comment on above: Result Comment: UTOX 2 Performed By: #### L 100.0100, L500.2500 ####[facility] [address] [place], [address] GAP Normal 5-15 [facility] Comment on above: Result Comment: UTOX 2 Performed By: #### L 100.0100, L500.2500 ####[facility] [address] [place], [address] GLU Normal 70-99 [facility] Comment on above: Result Comment: UTOX 2 Performed By: #### L 100.0100, L500.2500 ####[facility] [address] [place], [address] Potassium Normal 3.3-5.1 [facility] Comment on above: Result Comment: UTOX 2 Performed By: #### L 100.0100, L500.2500 ####[facility] [address] [place], [address] Basic Metabolic Profile (BMP) Normal 133-145 [facility] Comment on above: Result Comment: UTOX 2 Performed By: #### L 100.0100, L500.2500 ####[facility] [address] [place], [address] CBC W/Diff, Automatedon 03-2 Absolute Neut Normal 2.0-7.7 [facility] Comment on above: Result Comment: UTOX 2 Performed By: #### L 100.0100, L500.2500 ####[facility] [address] [place], [address] HCT Normal 37-47 [facility] Comment on above: Result Comment: UTOX 2 Performed By: #### L 100.0100, L500.2500 ####[facility] [address] [place], [address] HGB Normal 12.0-15.0 [facility] Comment on above: Result Comment: UTOX 2 Performed By: #### L 100.0100, L500.2500 ####[facility] [address] [place], [address] MCH Normal 27.0-32.0 [facility] Comment on above: Result Comment: UTOX 2 Performed By: #### L 100.0100, L500.2500 ####[facility] [address] [place], [address] MCHC Normal 32-36 [facility] Comment on above: Result Comment: UTOX 2 Performed By: #### L 100.0100, L500.2500 ####[facility] [address] [place], [address] MCV Normal 81-99 [facility] Comment on above: Result Comment: UTOX 2 Performed By: #### L 100.0100, L500.2500 ####[facility] [address] [place], [address] NEUT% Normal 47-70 [facility] Comment on above: Result Comment: UTOX 2 Performed By: #### L 100.0100, L500.2500 ####[facility] [address] [place], [address] PLT Normal 150-450 [facility] Comment on above: Result Comment: UTOX 2 Performed By: #### L 100.0100, L500.2500 ####[facility] [address] [place], [address] RBC Normal 4.2-5.4 [facility] Comment on above: Result Comment: UTOX 2 Performed By: #### L 100.0100, L500.2500 ####[facility] [address] [place], [address] RDW CV Normal 11.6-14.6 [facility] Comment on above: Result Comment: UTOX 2 Performed By: #### L 100.0100, L500.2500 ####[facility] [address] [place], [address] RDW SD Normal 35.1-43.9 [facility] Comment on above: Result Comment: UTOX 2 Performed By: #### L 100.0100, L500.2500 ####[facility] [address] [place], [address] WBC Normal 4.4-11.0 [facility] Comment on above: Result Comment: UTOX 2 Performed By: #### L 100.0100, L500.2500 ####[facility] [address] [place], [address] Chest PA and Lateralon 07-21 Chest PA and Lateral Normal [facility] Acetylcholine Receptoron ACHR AB < 0.03 Normal 0.00-0.24 [facility] Comment on above: Order Comment: DR. Mani HUFF GETS RESULTS FOR [place] AND DR. LONDONO GETS RESULTSFOR ALL OTHER LABSN Result Comment: Nega tive: 0.00 - 0.24 Borderline: 0.25 - 0.40 Positive: >0.40Performed at: [facility] [id number] Director: Luis Carlos Cerna MD, Phone: [phone] Performed By: #### L 100.0100, L500.2500, L503.7505, L3300.0600 ####[facility] [address] [place], [address] Absolute lymphocyte countOrd ered By: Sharad Londono on 07-04-2024 Lymphocytes Auto (Unsp spec) [#/Vol] 0.88 10*3/uL 0.83-4.51 [facility] Absolute neutrophil countOrd ered By: Sharad Londono on 07-04-2024 Neutrophils (Bld) [#/Vol] 3.7 10*3/uL 2.0-7.7 [facility] Acetylcholine receptorOrdere d By: Sharad Londono on 07-04-2024 Acetylcholine Receptor Antibody < 0.03 nmol/L 0.00-0.24 [facility] Comment on above: Negative: 0.00 - 0.2 4 Borderline: 0.25 - 0.40 Positive: >0.40Performed at: [facility] [address] [id number] Director: Luis Carlos Cerna MD, Phone: [phone] Anion gap in Serum or Plasma Ordered By: Sharad Londono on 07-04-2024 Anion gap [Moles/Vol] 15 mmol/L 5-15 [facility] Automated lymphocyte count a s percentage of total leukocytesOrdered By: Sharad Londono on 07-04-2024 Lymphocytes/100 WBC Auto (Unsp spec) 16.3 % Low 19-41 [facility] BUN/creatinine ratioOrdered By: Sharad Londono on 07-04-2024 Urea nitrogen/Creatinine [Mass ratio] 28.7 mg/mg High 10-20 [facility] Basic Metabolic Profile (BMP )on 07-04-2024 BUN/CRE 28.7 RATIO High 10- [facility] Comment on above: Performed By: #### L 100.0100, L500.2500, L503.7505, L3300.0600 ####[facility] [address] [place], [address] Calcium [Mass/Vol] 9.2 mg/dL Normal 7.6-11.0 [facility] Comment on above: Performed By: #### L 100.0100, L500.2500, L503.7505, L3300.0600 ####[facility] [address] [place], [address] Chloride [Moles/Vol] 101 mmol/L Normal 98-108 [facility] Comment on above: Performed By: #### L 100.0100, L500.2500, L503.7505, L3300.0600 ####[facility] [address] [place], [address] CO2 [Moles/Vol] 20.9 mmol/L Low 21.0-32.0 [facility] Comment on above: Performed By: #### L 100.0100, L500.2500, L503.7505, L3300.0600 ####[facility] [address] [place], [address] Creatinine [Mass/Vol] 1.17 mg/dL Normal 0.70-1.20 [facility] Comment on above: Performed By: #### L 100.0100, L500.2500, L503.7505, L3300.0600 ####[facility] [address] [place], [address] GAP 15 Normal 5-15 [facility] Comment on above: Performed By: #### L 100.0100, L500.2500, L503.7505, L3300.0600 ####[facility] [address] [place], [address] GFR/1.73 sq M.predicted among non-blacks MDRD (S/P/Bld) [Vol rate/Area] 45 mL/min/{1.73_m2} Low >60 [facility] Comment on above: Result Comment: mL/m in/1.73m2 CKD-EPI Creatinine Equation (2020) Performed By: #### L 100.0100, L500.2500, L503.7505, L3300.0600 ####[facility] [address] [place], [address] Glucose [Mass/Vol] 90 mg/dL Normal 70-99 [facility] Comment on above: Performed By: #### L 100.0100, L500.2500, L503.7505, L3300.0600 ####[facility] [address] [place], [address] Potassium [Moles/Vol] 4.1 mmol/L Normal 3.3-5.1 [facility] Comment on above: Performed By: #### L 100.0100, L500.2500, L503.7505, L3300.0600 ####[facility] [address] [place], [address] Sodium [Moles/Vol] 137 mmol/L Normal 133-145 [facility] Comment on above: Performed By: #### L 100.0100, L500.2500, L503.7505, L3300.0600 ####[facility] [address] [place], [address] Urea nitrogen [Mass/Vol] 34 mg/dL High 4-19 [facility] Comment on above: Performed By: #### L 100.0100, L500.2500, L503.7505, L3300.0600 ####[facility] [address] [place], [address] Basophil percentageOrdered B y: Sharad [facility] on 07-04-2024 Basophils/100 WBC (Bld) 0.7 % 0-1 [facility] CBC W/Diff, Automatedon Absolute Lymph 0.88 X10 3/uL Normal 0.83-4.51 [facility] Comment on above: Performed By: #### L 100.0100, L500.2500, L503.7505, L3300.0600 ####[facility] [address] [place], [address] Absolute Neut 3.7 X10 3/uL Normal 2.0-7.7 [facility] Comment on above: Performed By: #### L 100.0100, L500.2500, L503.7505, L3300.0600 ####[facility] [address] [place], [address] Basophils/100 WBC (Bld) 0.7 % Normal 0-1 [facility] Comment on above: Performed By: #### L 100.0100, L500.2500, L503.7505, L3300.0600 ####[facility] [address] [place], [address] Eosinophils/100 WBC (Bld) 1.5 % Normal 0-5 [facility] Comment on above: Performed By: #### L 100.0100, L500.2500, L503.7505, L3300.0600 ####[facility] [address] [place], [address] Erythrocyte distribution width (RBC) [Ratio] 14.6 % Normal 11.6-14.6 [facility] Comment on above: Performed By: #### L 100.0100, L500.2500, L503.7505, L3300.0600 ####[facility] [address] [place], [address] Hematocrit (Bld) [Volume fraction] 47.4 % High 37-47 [facility] Comment on above: Performed By: #### L 100.0100, L500.2500, L503.7505, L3300.0600 ####[facility] [address] [place], [address] Hemoglobin (Bld) [Mass/Vol] 15.5 g/dL High 12.0-15.0 [facility] Comment on above: Performed By: #### L 100.0100, L500.2500, L503.7505, L3300.0600 ####[facility] [address] [place], [address] IG% 0.200 Normal 0.0-0.9 [facility] Comment on above: Result Comment: IG% - Immature Granulocytes (promyelocytes, myelocytes andmetamyelocytes) > 1% indicates that a LEFT SHIFT is Present. Performed By: #### L 100.0100, L500.2500, L503.7505, L3300.0600 ####[facility] [address] [place], [address] Lymphocytes/100 WBC (Bld) 16.3 % Low 19-41 [facility] Comment on above: Performed By: #### L 100.0100, L500.2500, L503.7505, L3300.0600 ####[facility] [address] [place], [address] MCH (RBC) [Entitic mass] 32.1 pg High 27.0-32.0 [facility] Comment on above: Performed By: #### L 100.0100, L500.2500, L503.7505, L3300.0600 ####[facility] [address] [place], [address] MCHC (RBC) [Mass/Vol] 32.7 g/dL Normal 32-36 [facility] Comment on above: Performed By: #### L 100.0100, L500.2500, L503.7505, L3300.0600 ####[facility] [address] [place], [address] MCV (RBC) [Entitic vol] 98.1 fL Normal 81-99 [facility] Comment on above: Performed By: #### L 100.0100, L500.2500, L503.7505, L3300.0600 ####[facility] [address] [place], [address] Monocytes/100 WBC (Bld) 13.0 % High 0-10 [facility] Comment on above: Performed By: #### L 100.0100, L500.2500, L503.7505, L3300.0600 ####[facility] [address] [place], [address] Neutrophils/100 WBC (Bld) 68.3 % Normal 47-70 [facility] Comment on above: Performed By: #### L 100.0100, L500.2500, L503.7505, L3300.0600 ####[facility] [address] [place], [address] Nucleated RBC (Bld) [#/Vol] 0 10*3/uL Normal 0-5 [facility] Comment on above: Performed By: #### L 100.0100, L500.2500, L503.7505, L3300.0600 ####[facility] [address] [place], [address] Platelet mean volume (Bld) [Entitic vol] 11.2 fL Normal 6.2-12.0 [facility] Comment on above: Performed By: #### L 100.0100, L500.2500, L503.7505, L3300.0600 ####[facility] [address] [place], [address] Platelets (Bld) [#/Vol] 155 10*3/uL Normal 150-450 [facility] Comment on above: Performed By: #### L 100.0100, L500.2500, L503.7505, L3300.0600 ####[facility] [address] [place], [address] RBC (Bld) [#/Vol] 4.83 10*6/uL Normal 4.2-5.4 [facility] Comment on above: Performed By: #### L 100.0100, L500.2500, L503.7505, L3300.0600 ####[facility] [address] [place], [address] RDW SD 52.8 fl High 35.1-43.9 [facility] Comment on above: Performed By: #### L 100.0100, L500.2500, L503.7505, L3300.0600 ####[facility] [address] [place], [address] WBC (Bld) [#/Vol] 5.4 10*3/uL Normal 4.4-11.0 [facility] Comment on above: Performed By: #### L 100.0100, L500.2500, L503.7505, L3300.0600 ####[facility] [address] [place], [address] Carbon dioxide, total [Moles /volume] in Central venous bloodOrdered By: Sharad Londono on 07-04-2024 CO2 [Moles/Vol] 20.9 mmol/L Low 21.0-32.0 [facility] Chest PA and Lateralon 07-04 Chest PA and Lateral Normal [facility] Chloride assayOrdered By: Hailee Londono on 07-04-2024 Chloride [Moles/Vol] 101 mmol/L 98-108 [facility] Eosinophil percentageOrdered By: Sharad Londono on 07-04-2024 Eosinophils/100 WBC (Bld) 1.5 % 0-5 [facility] Erythrocyte distribution wid th ratioOrdered By: Sharad Londono on 07-04-2024 Erythrocyte distribution width (RBC) [Ratio] 14.6 % 11.6-14.6 [facility] Erythrocyte distribution wid th standard deviationOrdered By: Sharad Londono on 07-04-2024 Erythrocyte distribution width (RBC) [Entitic vol] 52.8 fL High 35.1-43.9 [facility] Erythrocyte distribution width (RBC) [Ratio] 52.8 fl High 35.1-43.9 [facility] GFR/1.73 sq M.predicted mario g non-blacks MDRD (S/P/Bld) [Vol rate/Area]Ordered By: Sharad Londono on 07-04-2024 Estimated GFR (MDRD) Non-Af Amer 45 Low >60 [facility] Comment on above: mL/min/1.73m2 CKD-EP I Creatinine Equation (2020) Glomerular filtration rate ( GFR) estimation/1.73 sq m using serum, plasma, or whole bOrdered By: Sharad Londono on 07-04-2024 GFR/1.73 sq M.predicted among non-blacks MDRD (S/P/Bld) [Vol rate/Area] 45 mL/min/{1.73_m2} Low >60 [facility] Comment on above: mL/min/1.73m2 CKD-EP I Creatinine Equation (2020) Hematocrit Auto (Bld) [Volum e fraction]Ordered By: Sharad Londono on 07-04-2024 Hematocrit (Bld) [Volume fraction] 47.4 % High 37-47 [facility] Hemoglobin measurementOrdere d By: Sharad Londono on 07-04-2024 Hemoglobin (Bld) [Mass/Vol] 15.5 g/dL High 12.0-15.0 [facility] Immature granulocytes/100 WB C Auto (Bld)Ordered By: Sharad Londono on 07-04-2024 Immature granulocytes/100 WBC (Bld) 0.200 % 0.0-0.9 [facility] Comment on above: IG% - Immature Granu locytes (promyelocytes, myelocytes and metamyelocytes) > 1% indicates that a LEFT SHIFT is Present. L503.7505on 07-04-2024 Natriuretic peptide B (Bld) [Mass/Vol] 64914 pg/mL High <=1800 [facility] Comment on above: Result Comment: Hear t Failure Unlikely: < 300 pg/mLHeart Failure Likely< 50 Years: > 450 pg/mL50-75 Years: > 900 pg/mL>75 Years: > 1800 pg/mL Performed By: #### L 100.0100, L500.2500, L503.7505, L3300.0600 ####[facility] [address] [place], [address] Laboratory - Chemistry and C hemistry - challengeOrdered By: Sharad Londono on 07-04-2024 Natriuretic peptide B (Bld) [Mass/Vol] 09234 pg/mL High <1800 [facility] Comment on above: Heart Failure Unlike ly: < 300 pg/mLHeart Failure Likely< 50 Years: > 450 pg/mL50-75 Years: > 900 pg/mL>75 Years: > 1800 pg/mL Lymphocytes Auto (Unsp spec) [#/Vol]Ordered By: Sharad Londono on 07-04-2024 Lymphocytes (Bld) [#/Vol] 0.88 10*3/uL 0.83-4.51 [facility] Lymphocytes/100 WBC Auto (Un sp spec)Ordered By: Sharad Londono on 07-04-2024 Lymphocytes/100 WBC (Bld) 16.3 % Low 19-41 [facility] MCV (mean corpuscular volume ) determinationOrdered By: Sharad Londono on 07-04-2024 MCV (RBC) [Entitic vol] 98.1 fL 81-99 [facility] Mean corpuscular hemoglobin (MCH) determinationOrdered By: Sharad Londono on 07-04-2024 MCH (RBC) [Entitic mass] 32.1 pg High 27.0-32.0 [facility] Mean corpuscular hemoglobin concentration (MCHC) determinationOrdered By: Sharad Londono on 07-04-2024 MCHC (RBC) [Mass/Vol] 32.7 g/dL 32-36 [facility] Mean platelet volume determi nationOrdered By: Sharad Londono on 07-04-2024 Platelet mean volume (Bld) [Entitic vol] 11.2 fL 6.2-12.0 [facility] Monocyte percentageOrdered B y: Sharad Londono on 07-04-2024 Monocytes/100 WBC (Bld) 13.0 % High 0-10 [facility] Neutrophil percentageOrdered By: Sharad Londono on 07-04-2024 Neutrophils/100 WBC (Bld) 68.3 % 47-70 [facility] Nucleated red blood cell per centageOrdered By: Sharad Londono on 07-04-2024 Nucleated RBC/100 WBC (Bld) [Ratio] 0 % 0-5 [facility] Platelet countOrdered By: Hailee Londono on 07-04-2024 Platelets (Bld) [#/Vol] 155 10*3/uL 150-450 [facility] Potassium (Unsp spec) [Mass/ Vol]Ordered By: Sharad Londono on 07-04-2024 Potassium [Moles/Vol] 4.1 mmol/L 3.3-5.1 [facility] Potassium measurement (mass/ volume)Ordered By: Sharad Londono on 07-04-2024 Potassium (Unsp spec) [Mass/Vol] 4.1 mmol/L 3.3-5.1 [facility] RBC Auto (Bld) [#/Vol]Ordere d By: Sharad Londono on 07-04-2024 RBC (Bld) [#/Vol] 4.83 10*6/uL 4.2-5.4 [facility] Serum creatinine measurement (mass/volume)Ordered By: Sharad Londono on 07-04-2024 Creatinine [Mass/Vol] 1.17 mg/dL 0.70-1.20 [facility] Serum glucose measurement (m ass/volume)Ordered By: Sharad Londono on 07-04-2024 Glucose [Mass/Vol] 90 mg/dL 70-99 [facility] Serum or plasma calcium criss urement (mass/volume)Ordered By: Sharad Londono on 07-04-2024 Calcium [Mass/Vol] 9.2 mg/dL 7.6-11.0 [facility] Serum or plasma urea nitroge n measurement (mass/volume)Ordered By: Sharad Londono on 07-04-2024 Urea nitrogen [Mass/Vol] 34 mg/dL High 4-19 [facility] Sodium levelOrdered By: Sharad Londono on 07-04-2024 Sodium [Moles/Vol] 137 mmol/L 133-145 [facility] White blood cell (WBC) count Ordered By: Sharad Londono on 07-04-2024 WBC (Bld) [#/Vol] 5.4 10*3/uL 4.4-11.0 [facility] Brain W/WO Contraston 2024 Brain W/WO Contrast Normal [facility] L3410.9998on 06-13-2024 [facility] Misc. COMMENT Normal . [facility] Comment on above: Order Comment: Test( s) 496966-DVnR Blocking Abs, SerumThis test was developed and its performance characteristicsdetermined by [facility]. It has not been cleared orapproved by the Food and Drug Administration.Test(s) 022208-NUiT-izmzuteruk Abwas developed and its performance characteristicsdetermined by [facility]. It has not been cleared or approvedby the Food and Drug Administration.[id number] AB PROFILE Performed By: #### L 3410.9998, L500.4050, L100.0100 ####[facility] [address] [place], [place], [id number] Absolute lymphocyte countOrd ered By: Leena Serra on 06-02-2024 Lymphocytes Auto (Unsp spec) [#/Vol] 0.71 10*3/uL Low 0.83-4.51 [facility] Absolute neutrophil countOrd ered By: Leena Serra on 06-02-2024 Neutrophils (Bld) [#/Vol] 3.4 10*3/uL 2.0-7.7 [facility] Albumin to globulin ratioOrd ered By: Leena Serra on 06-02-2024 Albumin/Globulin [Mass ratio] 1.1 {ratio} 0.9-2.4 [facility] Automated lymphocyte count a s percentage of total leukocytesOrdered By: Leena Serra on 06-02-2024 Lymphocytes/100 WBC Auto (Unsp spec) 15.2 % Low 19-41 [facility] Basophil percentageOrdered B y: Leena Serra on 06-02-2024 Basophils/100 WBC (Bld) 0.6 % 0-1 [facility] Bilirubin, totalOrdered By: Leena Serra on 06-02-2024 Bilirubin [Mass/Vol] 0.70 mg/dL 0.20-1.00 [facility] Comment on above: For patients on eltr ombopag therapy, use of Dimension [place] TBIL is not recommended. Blood urea nitrogen (BUN)/cr eatinine ratioOrdered By: Leena Serra on 06-02-2024 Urea nitrogen/Creatinine [Mass ratio] 28.3 mg/mg High 10-20 [facility] CBC W/Diff, Automatedon 05-05 Absolute Lymph 0.71 X10 3/uL Low 0.83-4.51 [facility] Comment on above: Order Comment: [facility] TOMI ACETYDR. PONCE ORDERED CMP CBCD Performed By: #### L 3410.9998, L500.4050, L100.0100 ####[facility] [address] [place], [address] Absolute Neut 3.4 X10 3/uL Normal 2.0-7.7 [facility] Comment on above: Order Comment: [facility] TOMI ACETYDR. PONCE ORDERED CMP CBCD Performed By: #### L 3410.9998, L500.4050, L100.0100 ####[facility] [address] [place], [address] Basophils/100 WBC (Bld) 0.6 % Normal 0-1 [facility] Comment on above: Order Comment: [facility] Karla ALEJANDREERED ACETYDR. BIBIANALANANDREW ORDERED CMP CBCD Performed By: #### L 3410.9998, L500.4050, L100.0100 ####[facility] [address] [place], [address] Eosinophils/100 WBC (Bld) 0.9 % Normal 0-5 [facility] Comment on above: Order Comment: [facility] O RDERED ACETYDR. VELLANKI ORDERED CMP CBCD Performed By: #### L 3410.9998, L500.4050, L100.0100 ####[facility] [address] [place], [address] Erythrocyte distribution width (RBC) [Ratio] 15.5 % High 11.6-14.6 [facility] Comment on above: Order Comment: [facility] O RDERED ACETYDR. VELLANKI ORDERED CMP CBCD Performed By: #### L 3410.9998, L500.4050, L100.0100 ####[facility] [address] [place], [address] Hematocrit (Bld) [Volume fraction] 45.2 % Normal 37-47 [facility] Comment on above: Order Comment: [facility] RDERED ACETYDR. VELLANKI ORDERED CMP CBCD Performed By: #### L 3410.9998, L500.4050, L100.0100 ####[facility] [address] [place], [address] Hemoglobin (Bld) [Mass/Vol] 14.9 g/dL Normal 12.0-15.0 [facility] Comment on above: Order Comment: [facility] O RDERED ACETYDR. VELLANKI ORDERED CMP CBCD Performed By: #### L 3410.9998, L500.4050, L100.0100 ####[facility] [address] [place], [address] IG% 0.400 Normal 0.0-0.9 [facility] Comment on above: Order Comment: [facility] O RDERED ACETYDR. VELLANKI ORDERED CMP CBCD Result Comment: IG% - Immature Granulocytes (promyelocytes, myelocytes andmetamyelocytes) > 1% indicates that a LEFT SHIFT is Present. Performed By: #### L 3410.9998, L500.4050, L100.0100 ####[facility] [address] [place], [address] Lymphocytes/100 WBC (Bld) 15.2 % Low 19-41 [facility] Comment on above: Order Comment: [facility] O RDERED ACETYDR. VELLANKI ORDERED CMP CBCD Performed By: #### L 3410.9998, L500.4050, L100.0100 ####[facility] [address] [place], [address] MCH (RBC) [Entitic mass] 32.0 pg Normal 27.0-32.0 [facility] Comment on above: Order Comment: [facility] RDERED ACETYDR. VELLANKI ORDERED CMP CBCD Performed By: #### L 3410.9998, L500.4050, L100.0100 ####[facility] [address] [place], [address] MCHC (RBC) [Mass/Vol] 33.0 g/dL Normal 32-36 [facility] Comment on above: Order Comment: [facility] O RDERED ACETYDR. VELLANKI ORDERED CMP CBCD Performed By: #### L 3410.9998, L500.4050, L100.0100 ####[facility] [address] [place], [address] MCV (RBC) [Entitic vol] 97.0 fL Normal 81-99 [facility] Comment on above: Order Comment: [facility] O RDERED ACETYDR. VELLANKI ORDERED CMP CBCD Performed By: #### L 3410.9998, L500.4050, L100.0100 ####[facility] [address] [place], [address] Monocytes/100 WBC (Bld) 10.5 % High 0-10 [facility] Comment on above: Order Comment: [facility] O RDERED ACETYDR. VELLANKI ORDERED CMP CBCD Performed By: #### L 3410.9998, L500.4050, L100.0100 ####[facility] [address] [place], [address] Neutrophils/100 WBC (Bld) 72.4 % High 47-70 [facility] Comment on above: Order Comment: [facility] HILLERED ACETYDR. BIBIANALANANDREW ORDERED CMP CBCD Performed By: #### L 3410.9998, L500.4050, L100.0100 ####[facility] [address] [place], [address] Nucleated RBC (Bld) [#/Vol] 0 10*3/uL Normal 0-5 [facility] Comment on above: Order Comment: [facility] TOMI ACETYDR. BIBIANALANANDREW ORDERED CMP CBCD Performed By: #### L 3410.9998, L500.4050, L100.0100 ####[facility] [address] [place], [address] Platelet mean volume (Bld) [Entitic vol] 11.2 fL Normal 6.2-12.0 [facility] Comment on above: Order Comment: [facility] TOMI ACETHANR. BIBIANALANANDREW ORDERED CMP CBCD Performed By: #### L 3410.9998, L500.4050, L100.0100 ####[facility] [address] [place], [address] Platelets (Bld) [#/Vol] 163 10*3/uL Normal 150-450 [facility] Comment on above: Order Comment: [facility] RDERED ACETYDR. BIBIANALANKI ORDERED CMP CBCD Performed By: #### L 3410.9998, L500.4050, L100.0100 ####[facility] [address] [place], [address] RBC (Bld) [#/Vol] 4.66 10*6/uL Normal 4.2-5.4 [facility] Comment on above: Order Comment: [facility] O HILLERED ACETYDR. SERRA ORDERED CMP CBCD Performed By: #### L 3410.9998, L500.4050, L100.0100 ####[facility] [address] [place], [address] RDW SD 54.7 fl High 35.1-43.9 [facility] Comment on above: Order Comment: [facility] HILLERED ACETHANRNena SERRA ORDERED CMP CBCD Performed By: #### L 3410.9998, L500.4050, L100.0100 ####[facility] [address] [place], [address] WBC (Bld) [#/Vol] 4.7 10*3/uL Normal 4.4-11.0 [facility] Comment on above: Order Comment: [facility] HILLERED ACETYDR. SERRA ORDERED CMP CBCD Performed By: #### L 3410.9998, L500.4050, L100.0100 ####[facility] [address] [place], [address] Carbon dioxide measurementOr dered By: Leena Serra on 06-02-2024 CO2 [Moles/Vol] 22.0 mmol/L 21.0-32.0 [facility] Chloride measurementOrdered By: Leena Serra on 06-02-2024 Chloride [Moles/Vol] 106 mmol/L 98-107 [facility] Comprehensive Metabolic Prof ilon 06-02-2024 Albumin [Mass/Vol] 3.5 g/dL Normal 3.2-5.0 [facility] Comment on above: Order Comment: [facility] RDERED ACETHANRNena SERRA ORDERED CMP CBCD Performed By: #### L 3410.9998, L500.4050, L100.0100 ####[facility] [address] [place], [address] Albumin/Globulin [Mass ratio] 1.1 {ratio} Normal 0.9-2.4 [facility] Comment on above: Order Comment: [facility] RDERED ACETYDR. VELLANKI ORDERED CMP CBCD Performed By: #### L 3410.9998, L500.4050, L100.0100 ####[facility] [address] [place], [address] ALK P 66 U/L Normal 45-117 [facility] Comment on above: Order Comment: [facility] RDERED ACETYDR. VELLANKI ORDERED CMP CBCD Performed By: #### L 3410.9998, L500.4050, L100.0100 ####[facility] [address] [place], [address] ALT [Catalytic activity/Vol] 26 U/L Normal 13-56 [facility] Comment on above: Order Comment: [facility] RDERED ACETYDR. VELLANKI ORDERED CMP CBCD Performed By: #### L 3410.9998, L500.4050, L100.0100 ####[facility] [address] [place], [address] AST [Catalytic activity/Vol] 17 U/L Normal 15-37 [facility] Comment on above: Order Comment: [facility] RDERED ACETYDR. VELLANKI ORDERED CMP CBCD Performed By: #### L 3410.9998, L500.4050, L100.0100 ####[facility] [address] [place], [address] Bilirubin [Mass/Vol] 0.70 mg/dL Normal 0.20-1.00 [facility] Comment on above: Order Comment: [facility] RDERED ACETYDR. VELLANKI ORDERED CMP CBCD Result Comment: For patients on eltrombopag therapy, use of Dimension [place] TBIL is not recommended. Performed By: #### L 3410.9998, L500.4050, L100.0100 ####[facility] [address] [place], [address] BUN/CRE 28.3 RATIO High 10-20 [facility] Comment on above: Order Comment: [facility] O RDERED ACETYDR. VELLANKI ORDERED CMP CBCD Performed By: #### L 3410.9998, L500.4050, L100.0100 ####[facility] [address] [place], [address] CA,Total 9.6 mg/dL Normal 8.5-10.1 [facility] Comment on above: Order Comment: [facility] RDERED ACETYDR. VELLANKI ORDERED CMP CBCD Performed By: #### L 3410.9998, L500.4050, L100.0100 ####[facility] [address] [place], [address] Chloride [Moles/Vol] 106 mmol/L Normal 98-107 [facility] Comment on above: Order Comment: [facility] RDERED ACETYDR. VELLANKI ORDERED CMP CBCD Performed By: #### L 3410.9998, L500.4050, L100.0100 ####[facility] [address] [place], [address] CO2 [Moles/Vol] 22.0 mmol/L Normal 21.0-32.0 [facility] Comment on above: Order Comment: [facility] RDERED ACETYDR. VELLANKI ORDERED CMP CBCD Performed By: #### L 3410.9998, L500.4050, L100.0100 ####[facility] [address] [place], [address] Creatinine [Mass/Vol] 1.20 mg/dL High 0.55-1.02 [facility] Comment on above: Order Comment: [facility] RDERED ACETYDR. VELLANKI ORDERED CMP CBCD Result Comment: The validity of the calculated GFR GFRAA in patients over70 years has not been determined. Clinical correlation isessential. Performed By: #### L 3410.9998, L500.4050, L100.0100 ####[facility] [address] [place], [address] EST GFR - AA 55 mL/min Low >60 [facility] Comment on above: Order Comment: [facility] RDERED ACETYDR. VELLANKI ORDERED CMP CBCD Result Comment: Afri can [place] GFR Calc Performed By: #### L 3410.9998, L500.4050, L100.0100 ####[facility] [address] [place], [address] GAP 9 Normal 5-15 [facility] Comment on above: Order Comment: [facility] O RDERED ACETYDR. VELLANKI ORDERED CMP CBCD Performed By: #### L 3410.9998, L500.4050, L100.0100 ####[facility] [address] [place], [address] GFR/1.73 sq M.predicted among non-blacks MDRD (S/P/Bld) [Vol rate/Area] 45 mL/min/{1.73_m2} Low >60 [facility] Comment on above: Order Comment: [facility] O RDERED ACETYDR. VELLANKI ORDERED CMP CBCD Result Comment: Non- GFR Calc Performed By: #### L 3410.9998, L500.4050, L100.0100 ####[facility] [address] [place], [address] Globulin (S) [Mass/Vol] 3.2 g/dL Normal 2.2-4.2 [facility] Comment on above: Order Comment: [facility] O RDERED ACETYDR. VELLANKI ORDERED CMP CBCD Performed By: #### L 3410.9998, L500.4050, L100.0100 ####[facility] [address] [place], [address] Glucose [Mass/Vol] 114 mg/dL High 74-106 [facility] Comment on above: Order Comment: [facility] RDERED ACETYDR. VELLANKI ORDERED CMP CBCD Result Comment: Fast ing Glucose result from 100 to 125 mg/dLsuggests IMPAIRED HOMEOSTASIS per A.D.A. criteria. Performed By: #### L 3410.9998, L500.4050, L100.0100 ####[facility] [address] [place], [address] Potassium [Moles/Vol] 4.3 mmol/L Normal 3.5-5.1 [facility] Comment on above: Order Comment: [facility] RDERED ACETYDR. VELLANKI ORDERED CMP CBCD Performed By: #### L 3410.9998, L500.4050, L100.0100 ####[facility] [address] [place], [address] Sodium [Moles/Vol] 137 mmol/L Normal 136-145 [facility] Comment on above: Order Comment: [facility] RDERED ACETYDR. VELLANKI ORDERED CMP CBCD Performed By: #### L 3410.9998, L500.4050, L100.0100 ####[facility] [address] [place], [address] T PROT 6.7 g/dL Normal 6.4-8.2 [facility] Comment on above: Order Comment: [facility] RDERED ACETYDR. VELLANKI ORDERED CMP CBCD Performed By: #### L 3410.9998, L500.4050, L100.0100 ####[facility] [address] [place], [address] Urea nitrogen [Mass/Vol] 34 mg/dL High 7-18 [facility] Comment on above: Order Comment: [facility] O RDERED ACETYDR. VELLANKI ORDERED CMP CBCD Performed By: #### L 3410.9998, L500.4050, L100.0100 ####[facility] [address] [place], [address] Eosinophil percentageOrdered By: Leena Serra on 06-02-2024 Eosinophils/100 WBC (Bld) 0.9 % 0-5 [facility] Erythrocyte distribution wid th ratioOrdered By: Leena Serra on 06-02-2024 Erythrocyte distribution width (RBC) [Ratio] 15.5 % High 11.6-14.6 [facility] Erythrocyte distribution wid th standard deviationOrdered By: Leena Serra on 06-02-2024 Erythrocyte distribution width (RBC) [Entitic vol] 54.7 fL High 35.1-43.9 [facility] Erythrocyte distribution width (RBC) [Ratio] 54.7 fl High 35.1-43.9 [facility] Estimated glomerular filtrat ion rate (GFR) AmericanOrdered By: Leena Serra on 06-02-2024 Estimated GFR (MDRD) Amer 55 mL/min Low >60 [facility] Comment on above: GFR Calc Glomerular filtration rate ( GFR) estimationOrdered By: Leena Serra on 06-02-2024 Estimated GFR (MDRD) Non-Af Amer 45 mL/min Low >60 [facility] Comment on above: Non- GFR Calc GFR/1.73 sq M.predicted among non-blacks MDRD (S/P/Bld) [Vol rate/Area] 45 mL/min/{1.73_m2} Low >60 [facility] Comment on above: Non- GFR Calc Glucose measurementOrdered B y: Leena Serra on 06-02-2024 Glucose [Mass/Vol] 114 mg/dL High 74-106 [facility] Comment on above: Fasting Glucose resu lt from 100 to 125 mg/dL suggests IMPAIRED HOMEOSTASIS per A.D.A. criteria. Hematocrit Auto (Bld) [Volum e fraction]Ordered By: Leena Serra on 06-02-2024 Hematocrit (Bld) [Volume fraction] 45.2 % 37-47 [facility] Hemoglobin measurementOrdere d By: Leena Serra on 06-02-2024 Hemoglobin (Bld) [Mass/Vol] 14.9 g/dL 12.0-15.0 [facility] Immature granulocytes/100 WB C Auto (Bld)Ordered By: Leena Serra on 06-02-2024 Immature granulocytes/100 WBC (Bld) 0.400 % 0.0-0.9 [facility] Comment on above: IG% - Immature Granu locytes (promyelocytes, myelocytes and metamyelocytes) > 1% indicates that a LEFT SHIFT is Present. Laboratory - Chemistry and C hemistry - challengeOrdered By: Leena Serra on 06-02-2024 AST [Catalytic activity/Vol] 17 U/L 15-37 [facility] Lymphocytes Auto (Unsp spec) [#/Vol]Ordered By: Leena Serra on 06-02-2024 Lymphocytes (Bld) [#/Vol] 0.71 10*3/uL Low 0.83-4.51 [facility] Lymphocytes/100 WBC Auto (Un sp spec)Ordered By: Leena Serra on 06-02-2024 Lymphocytes/100 WBC (Bld) 15.2 % Low 19-41 [facility] MCV (mean corpuscular volume ) determinationOrdered By: Leena Serra on 06-02-2024 MCV (RBC) [Entitic vol] 97.0 fL 81-99 [facility] Mean corpuscular hemoglobin (MCH) determinationOrdered By: Leena Serra on 06-02-2024 MCH (RBC) [Entitic mass] 32.0 pg 27.0-32.0 [facility] Mean corpuscular hemoglobin concentration (MCHC) determinationOrdered By: Leena Serra on 06-02-2024 MCHC (RBC) [Mass/Vol] 33.0 g/dL 32-36 [facility] Mean platelet volume determi nationOrdered By: Leena Serra on 06-02-2024 Platelet mean volume (Bld) [Entitic vol] 11.2 fL 6.2-12.0 [facility] Monocyte percentageOrdered B y: Leena Serra on 06-02-2024 Monocytes/100 WBC (Bld) 10.5 % High 0-10 [facility] Neutrophil percentageOrdered By: Leena Serra on 06-02-2024 Neutrophils/100 WBC (Bld) 72.4 % High 47-70 [facility] Nucleated red blood cell per centageOrdered By: Leena Serra on 06-02-2024 Nucleated RBC/100 WBC (Bld) [Ratio] 0 % 0-5 [facility] Platelet countOrdered By: Wisam Serra on 06-02-2024 Platelets (Bld) [#/Vol] 163 10*3/uL 150-450 [facility] Potassium measurementOrdered By: Leena Serra on 06-02-2024 Potassium [Moles/Vol] 4.3 mmol/L 3.5-5.1 [facility] RBC Auto (Bld) [#/Vol]Ordere d By: Leena Serra on 06-02-2024 RBC (Bld) [#/Vol] 4.66 10*6/uL 4.2-5.4 [facility] Serum anion gap measurementO rdered By: Leena Serra on 06-02-2024 Anion gap [Moles/Vol] 9 mmol/L 5-15 [facility] Serum globulin measurementOr dered By: Leena Serra on 06-02-2024 Globulin (S) [Mass/Vol] 3.2 g/dL 2.2-4.2 [facility] Serum or plasma alanine hay otransferase (ALT) measurementOrdered By: Leena Serra on 06-02-2024 ALT [Catalytic activity/Vol] 26 U/L 13-56 [facility] Serum or plasma albumin criss urement (mass/volume)Ordered By: Leena Serra on 06-02-2024 Albumin [Mass/Vol] 3.5 g/dL 3.2-5.0 [facility] Serum or plasma alkaline ezra sphatase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 07-12-2023 Lymphocytes Auto (Unsp spec) [#/Vol] 0.89 10*3/uL 0.83-4.51 [facility] Automated lymphocyte count a s percentage of total leukocytesOrdered By: Matteo Jonas on 07-12-2023 Lymphocytes/100 WBC Auto (Unsp spec) 17.9 % 19-41 [facility] Basophil percentageOrdered B y: Matteo Jonas on 07-12-2023 Basophils/100 WBC (Bld) 0.6 % 0-1 [facility] Bilirubin [Mass/Vol] 0.60 mg/dL 0.20-1.00 [facility] Comment on above: For patients on eltr ombopag therapy, use of Dimension [place] TBIL is not recommended. Chloride [Moles/Vol] 106 mmol/L 98-107 [facility] Eosinophils/100 WBC (Bld) 0.8 % 0-5 [facility] Glucose [Mass/Vol] 123 mg/dL 74-106 [facility] Comment on above: Fasting Glucose resu lt from 100 to 125 mg/dL suggests IMPAIRED HOMEOSTASIS per A.D.A. criteria. Hemoglobin (Bld) [Mass/Vol] 13.4 g/dL 12.0-15.0 [facility] LDH [Catalytic activity/Vol] 203 U/L 84-246 [facility] Monocytes/100 WBC (Bld) 11.1 % 0-10 [facility] Neutrophils (Bld) [#/Vol] 3.4 10*3/uL 2.0-7.7 [facility] Neutrophils/100 WBC (Bld) 69.2 % 47-70 [facility] Potassium [Moles/Vol] 4.0 mmol/L 3.5-5.1 [facility] Protein [Mass/Vol] 6.9 g/dL 6.4-8.2 [facility] Sodium [Moles/Vol] 139 mmol/L 136-145 [facility] WBC (Bld) [#/Vol] 5.0 10*3/uL 4.4-11.0 [facility] Determination of erythrocyte mean corpuscular volume (MCV)Ordered By: Matteo Jonas on 07-12-2023 MCV (RBC) [Entitic vol] 97.2 fL 81-99 [facility] Erythrocyte distribution wid th ratioOrdered By: Matteo Jonas on 07-12-2023 Erythrocyte distribution width (RBC) [Ratio] 14.7 % 11.6-14.6 [facility] Erythrocyte distribution wid th standard deviationOrdered By: Matteo Jonas on 07-12-2023 Erythrocyte distribution width (RBC) [Entitic vol] 52.5 fL 35.1-43.9 [facility] Hematocrit Auto (Bld) [Volum e fraction]Ordered By: Matteo Jonas on 07-12-2023 Hematocrit (Bld) [Volume fraction] 41.8 % 37-47 [facility] Immature granulocytes/100 WB C Auto (Bld)Ordered By: Matteo Jonas on 07-12-2023 Immature granulocytes/100 WBC (Bld) 0.400 % 0.0-0.9 [facility] Comment on above: IG% - Immature Granu locytes (promyelocytes, myelocytes and metamyelocytes) > 1% indicates that a LEFT SHIFT is Present. Laboratory - Chemistry and C hemistry - challengeOrdered By: Matteo Jonas on 07-12-2023 Albumin/Globulin [Mass ratio] 0.9 {ratio} 0.9-2.4 [facility] ALP [Catalytic activity/Vol] 76 U/L 45-117 [facility] ALT [Catalytic activity/Vol] 37 U/L 13-56 [facility] CO2 [Moles/Vol] 27.0 mmol/L 21.0-32.0 [facility] Globulin (S) [Mass/Vol] 3.6 g/dL 2.2-4.2 [facility] Urea nitrogen/Creatinine [Mass ratio] 27.6 mg/mg 10-20 [facility] Laboratory - Hematology and Cell countsOrdered By: Matteo Jonas on 07-12-2023 MCH (RBC) [Entitic mass] 31.2 pg 27.0-32.0 [facility] MCHC (RBC) [Mass/Vol] 32.1 g/dL 32-36 [facility] Nucleated RBC/100 WBC (Bld) [Ratio] 0 % 0-5 [facility] Platelet mean volume (Bld) [Entitic vol] 10.8 fL 6.2-12.0 [facility] Platelets (Bld) [#/Vol] 165 10*3/uL 150-450 [facility] No Panel InformationOrdered By: Matteo Jonas on 07-12-2023 Estimated Creatinine Clearance Calc 31.33 ml/min [facility] Estimated GFR (MDRD) Amer 57 mL/min >60 [facility] Comment on above: GFR Calc Estimated GFR (MDRD) Non-Af Amer 47 mL/min >60 [facility] Comment on above: Non- GFR Calc RBC Auto (Bld) [#/Vol]Ordere d By: Matteo Jonas on 07-12-2023 RBC (Bld) [#/Vol] 4.30 10*6/uL 4.2-5.4 [facility] Serum or plasma calcium criss urement (mass/volume)Ordered By: Matteo Jonas on 07-12-2023 Calcium [Mass/Vol] 9.3 mg/dL 8.5-10.1 [facility] Serum or plasma creatinine m easurement (mass/volume)Ordered By: Matteo Jonas on 07-12-2023 Creatinine [Mass/Vol] 1.16 mg/dL 0.55-1.02 [facility] Comment on above: The validity of the calculated GFR & GFRAA in patients over 70 years has not been determined. Clinical correlation is essential. 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 Normal [facility] on 07-05-[address] chest c ompleted 07/05/23 from [facility]. Imaging report in media. Normal [facility] 36on 06-30-2023 36 Navigator contacted the office of radiation oncologist, Dr. Matteo Jonas in [place]. Confirmed that Ms. Ferguson is scheduled for CT chest 07/05/2023 at [facility]. Navigator will obtain outside images for review. Spoke with patient by phone and arranged appointment with Dr. Gonzalez by phone to review images and results. Patient is aware that if there are significant changes or more urgent follow-up is needed, we will contact her to reschedule sooner. Normal [facility] Absolute lymphocyte countOrd ered By: Leena Serra on 06-23-2023 Lymphocytes Auto (Unsp spec) [#/Vol] 0.74 10*3/uL 0.83-4.51 [facility] Automated lymphocyte count a s percentage of total leukocytesOrdered By: Leena Serra on 06-23-2023 Lymphocytes/100 WBC Auto (Unsp spec) 12.8 % 19-41 [facility] Basophil percentageOrdered B y: Leena Serra on 06-23-2023 Basophils/100 WBC (Bld) 0.3 % 0-1 [facility] Bilirubin [Mass/Vol] 0.60 mg/dL 0.20-1.00 [facility] Comment on above: For patients on eltr ombopag therapy, use of Dimension [place] TBIL is not recommended. Chloride [Moles/Vol] 105 mmol/L 98-107 [facility] Eosinophils/100 WBC (Bld) 0.3 % 0-5 [facility] Glucose [Mass/Vol] 133 mg/dL 74-106 [facility] Comment on above: Fasting Glucose resu lt greater than or equal to 126 mg/dL suggests DIABETES MELLITUS per A.D.A. criteria. Hemoglobin (Bld) [Mass/Vol] 13.5 g/dL 12.0-15.0 [facility] Monocytes/100 WBC (Bld) 8.3 % 0-10 [facility] Neutrophils (Bld) [#/Vol] 4.5 10*3/uL 2.0-7.7 [facility] Neutrophils/100 WBC (Bld) 78.1 % 47-70 [facility] Potassium [Moles/Vol] 3.8 mmol/L 3.5-5.1 [facility] Protein [Mass/Vol] 6.9 g/dL 6.4-8.2 [facility] Sodium [Moles/Vol] 137 mmol/L 136-145 [facility] WBC (Bld) [#/Vol] 5.8 10*3/uL 4.4-11.0 [facility] Determination of erythrocyte mean corpuscular volume (MCV)Ordered By: Leena Serra on 06-23-2023 MCV (RBC) [Entitic vol] 95.3 fL 81-99 [facility] Erythrocyte distribution wid th ratioOrdered By: Leena Serra on 06-23-2023 Erythrocyte distribution width (RBC) [Ratio] 14.1 % 11.6-14.6 [facility] Erythrocyte distribution wid th standard deviationOrdered By: Leena Serra on 06-23-2023 Erythrocyte distribution width (RBC) [Entitic vol] 49.1 fL 35.1-43.9 [facility] Hematocrit Auto (Bld) [Volum e fraction]Ordered By: Leena Serra on 06-23-2023 Hematocrit (Bld) [Volume fraction] 40.8 % 37-47 [facility] Immature granulocytes/100 WB C Auto (Bld)Ordered By: Leena Serra on 06-23-2023 Immature granulocytes/100 WBC (Bld) 0.200 % 0.0-0.9 [facility] Comment on above: IG% - Immature Granu locytes (promyelocytes, myelocytes and metamyelocytes) > 1% indicates that a LEFT SHIFT is Present. Laboratory - Chemistry and C hemistry - challengeOrdered By: Leena Serra on 06-23-2023 Albumin/Globulin [Mass ratio] 1.0 {ratio} 0.9-2.4 [facility] ALP [Catalytic activity/Vol] 74 U/L 45-117 [facility] ALT [Catalytic activity/Vol] 24 U/L 13-56 [facility] CO2 [Moles/Vol] 26.0 mmol/L 21.0-32.0 [facility] Globulin (S) [Mass/Vol] 3.4 g/dL 2.2-4.2 [facility] Urea nitrogen/Creatinine [Mass ratio] 29.7 mg/mg 10-20 [facility] Laboratory - Hematology and Cell countsOrdered By: Leena Serra on 06-23-2023 MCH (RBC) [Entitic mass] 31.5 pg 27.0-32.0 [facility] MCHC (RBC) [Mass/Vol] 33.1 g/dL 32-36 [facility] Nucleated RBC/100 WBC (Bld) [Ratio] 0 % 0-5 [facility] Platelet mean volume (Bld) [Entitic vol] 10.6 fL 6.2-12.0 [facility] Platelets (Bld) [#/Vol] 168 10*3/uL 150-450 [facility] No Panel InformationOrdered By: Leena Serra on 06-23-2023 Estimated Creatinine Clearance Calc 30.74 ml/min [facility] Estimated GFR (MDRD) Amer 60 mL/min >60 [facility] Comment on above: GFR Calc Estimated GFR (MDRD) Non-Af Amer 49 mL/min >60 [facility] Comment on above: Non- GFR Calc RBC Auto (Bld) [#/Vol]Ordere d By: Leena Serra on 06-23-2023 RBC (Bld) [#/Vol] 4.28 10*6/uL 4.2-5.4 [facility] Serum or plasma calcium criss urement (mass/volume)Ordered By: Leena Serra on 06-23-2023 Calcium [Mass/Vol] 9.0 mg/dL 8.5-10.1 [facility] Serum or plasma creatinine m easurement (mass/volume)Ordered By: Leena Serra on 06-23-2023 Creatinine [Mass/Vol] 1.11 mg/dL 0.55-1.02 [facility] Comment on above: The validity of the calculated GFR & GFRAA in patients over 70 years has not been determined. Clinical correlation is essential. Serum or plasma thyroid stim ulating hormone (TSH) measurement (units/volume)Ordered By: Teagan Hall on 06-23-2023 TSH Qn 0.93 uIU/mL 0.358-3.74 [facility] Serum or plasma urea nitroge n measurement (mass/volume)Ordered By: Leena Serra on 06-23-2023 Urea nitrogen [Mass/Vol] 33 mg/dL 7-18 [facility] Thin prep Papanicolaou smear with manual screeningOrdered By: Leena Serra on 06-23-2023 Thin prep Papanicolaou smear with manual screening 3.5 g/dL 3.2-5.0 [facility] Thin prep Papanicolaou smear with manual screening 23 U/L 15-37 [facility] Thin prep Papanicolaou smear with manual screening 6 5-15 [facility] Basophil percentageOrdered B y: Mary Zapien on 05-04-2023 Chloride [Moles/Vol] 101 mmol/L 98-107 [facility] Glucose [Mass/Vol] 109 mg/dL 74-106 [facility] Comment on above: Fasting Glucose resu lt from 100 to 125 mg/dL suggests IMPAIRED HOMEOSTASIS per A.D.A. criteria. Potassium [Moles/Vol] 3.7 mmol/L 3.5-5.1 [facility] Sodium [Moles/Vol] 136 mmol/L 136-145 [facility] Laboratory - Chemistry and C hemistry - challengeOrdered By: Mary Zapien on 05-04-2023 CO2 [Moles/Vol] 29.0 mmol/L 21.0-32.0 [facility] Urea nitrogen/Creatinine [Mass ratio] 35.5 mg/mg 10-20 [facility] No Panel InformationOrdered By: Mary Zapien on 05-04-2023 Estimated GFR (MDRD) Amer 62 mL/min >60 [facility] Comment on above: GFR Calc Estimated GFR (MDRD) Non-Af Amer 52 mL/min >60 [facility] Comment on above: Non- GFR Calc Serum or plasma calcium criss urement (mass/volume)Ordered By: Mary Zapien on 05-04-2023 Calcium [Mass/Vol] 9.4 mg/dL 8.5-10.1 [facility] Serum or plasma creatinine m easurement (mass/volume)Ordered By: Mary Zapien on 05-04-2023 Creatinine [Mass/Vol] 1.07 mg/dL 0.55-1.02 [facility] Comment on above: The validity of the calculated GFR & GFRAA in patients over 70 years has not been determined. Clinical correlation is essential. Serum or plasma urea nitroge n measurement (mass/volume)Ordered By: Mary Zapien on 05-04-2023 Urea nitrogen [Mass/Vol] 38 mg/dL 7-18 [facility] Thin prep Papanicolaou smear with manual screeningOrdered By: Mary Zapien on 05-04-2023 Thin prep Papanicolaou smear with manual screening 6 5-15 [facility] Basophil percentageOrdered B y: Holli Gaona on 04-07-2023 Basophil percentage 7.3 g/dL 6.4-8.2 [facility] Basophil percentage 294 U/L 84-246 [facility] LDH [Catalytic activity/Vol] 294 U/L 84-246 [facility] Protein [Mass/Vol] 7.3 g/dL 6.4-8.2 [facility] Laboratory - Chemistry and C hemistry - challengeOrdered By: Holli Gaona on 04-07-2023 Globulin (S) [Mass/Vol] 3.5 g/dL 2.2-4.2 [facility] No Panel InformationOrdered By: Holli Gaona on 04-07-2023 3.5 g/dL 2.2-4.2 [facility] Serum or plasma albumin/glob ulin mass ratioOrdered By: Holli Gaona on 04-07-2023 Albumin/Globulin [Mass ratio] 1.1 {ratio} 0.9-2.4 [facility] Absolute lymphocyte countOrd ered By: Mary Zapien on 03-29-2023 Lymphocytes Auto (Unsp spec) [#/Vol] 1.08 10*3/uL 0.83-4.51 [facility] Basophil percentageOrdered B y: Mary Zapien on 03-29-2023 Basophil percentage 88 mg/dL 74-106 [facility] Basophil percentage 7.2 g/dL 6.4-8.2 [facility] Basophil percentage 0.70 mg/dL 0.20-1.00 [facility] Basophil percentage 137 mmol/L 136-145 [facility] Basophil percentage 3.6 mmol/L 3.5-5.1 [facility] Basophil percentage 103 mmol/L 98-107 [facility] Basophils (Bld) [#/Vol] 5.1 10*3/uL 4.4-11.0 [facility] Basophils (Bld) [#/Vol] 3.3 10*3/uL 2.0-7.7 [facility] Basophils/100 WBC (Bld) 65.3 % 47-70 [facility] Basophils/100 WBC (Bld) 1.0 % 0-5 [facility] Basophils/100 WBC (Bld) 0.8 % 0-1 [facility] Bilirubin [Mass/Vol] 0.70 mg/dL 0.20-1.00 [facility] Comment on above: For patients on eltr ombopag therapy, use of Dimension [place] TBIL is not recommended. Chloride [Moles/Vol] 103 mmol/L 98-107 [facility] Eosinophils/100 WBC (Bld) 1.0 % 0-5 [facility] Glucose [Mass/Vol] 88 mg/dL 74-106 [facility] Neutrophils (Bld) [#/Vol] 3.3 10*3/uL 2.0-7.7 [facility] Neutrophils/100 WBC (Bld) 65.3 % 47-70 [facility] Potassium [Moles/Vol] 3.6 mmol/L 3.5-5.1 [facility] Protein [Mass/Vol] 7.2 g/dL 6.4-8.2 [facility] Sodium [Moles/Vol] 137 mmol/L 136-145 [facility] WBC (Bld) [#/Vol] 5.1 10*3/uL 4.4-11.0 [facility] Blood erythrocytes count (nu mber/volume)Ordered By: Mary Zapien on 03-29-2023 RBC (Bld) [#/Vol] 4.91 10*6/uL 4.2-5.4 [facility] Blood hemoglobin measurement (mass/volume)Ordered By: Mary Zapien on 03-29-2023 Hemoglobin (Bld) [Mass/Vol] 15.1 g/dL 12.0-15.0 [facility] Blood lymphocytes/100 leukoc ytesOrdered By: Mary Zapien on 03-29-2023 Lymphocytes/100 WBC (Bld) 21.3 % 19-41 [facility] Blood monocytes/100 leukocyt esOrdered By: Mary Zapien on 03-29-2023 Monocytes/100 WBC (Bld) 11.2 % 0-10 [facility] Blood platelet mean volumeOr dered By: Mary Zapien on 03-29-2023 Platelet mean volume (Bld) [Entitic vol] 10.1 fL 6.2-12.0 [facility] Determination of erythrocyte mean corpuscular volume (MCV)Ordered By: Mary Zapien on 03-29-2023 MCV (RBC) [Entitic vol] 95.9 fL 81-99 [facility] Hematocrit Auto (Bld) [Volum e fraction]Ordered By: Mary Zapien on 03-29-2023 Hematocrit (Bld) [Volume fraction] 47.1 % 37-47 [facility] Laboratory - Chemistry and C hemistry - challengeOrdered By: Mary Zapien on 03-29-2023 ALP [Catalytic activity/Vol] 69 U/L 45-117 [facility] ALT [Catalytic activity/Vol] 28 U/L 13-56 [facility] CO2 [Moles/Vol] 27.0 mmol/L 21.0-32.0 [facility] Globulin (S) [Mass/Vol] 3.8 g/dL 2.2-4.2 [facility] Urea nitrogen/Creatinine [Mass ratio] 19.2 mg/mg 10-20 [facility] Laboratory - Hematology and Cell countsOrdered By: Mary Zapien on 03-29-2023 Erythrocyte distribution width (RBC) [Entitic vol] 52.9 fL 35.1-43.9 [facility] Erythrocyte distribution width (RBC) [Ratio] 15.2 % 11.6-14.6 [facility] Immature granulocytes/100 WBC (Bld) 0.400 % 0.0-0.9 [facility] Comment on above: IG% - Immature Granu locytes (promyelocytes, myelocytes and metamyelocytes) > 1% indicates that a LEFT SHIFT is Present. MCH (RBC) [Entitic mass] 30.8 pg 27.0-32.0 [facility] Nucleated RBC/100 WBC (Bld) [Ratio] 0 % 0-5 [facility] MCHC Auto (RBC) [Mass/Vol]Or dered By: Mary Zapien on 03-29-2023 MCHC (RBC) [Mass/Vol] 32.1 g/dL 32-36 [facility] No Panel InformationOrdered By: Mary Zapien on 03-29-2023 Estimated GFR (MDRD) Amer 65 mL/min >60 [facility] Comment on above: GFR Calc Estimated GFR (MDRD) Non-Af Amer 53 mL/min >60 [facility] Comment on above: Non- GFR Calc Thyroid Stimulating Hormone (TSH) 4.82 uIU/mL 0.358-3.74 [facility] 30.8 pg 27.0-32.0 [facility] 15.2 % 11.6-14.6 [facility] 52.9 fl 35.1-43.9 [facility] 0.400 % 0.0-0.9 [facility] 0 % 0-5 [facility] 53 mL/min >60 [facility] 65 mL/min >60 [facility] 19.2 RATIO 10-20 [facility] 3.8 g/dL 2.2-4.2 [facility] 69 U/L 45-117 [facility] 28 U/L 13-56 [facility] 27.0 mmol/L 21.0-32.0 [facility] 4.82 uIU/mL 0.358-3.74 [facility] Platelets bldOrdered By: Kerwin Zapien on 03-29-2023 Platelets (Bld) [#/Vol] 200 10*3/uL 150-450 [facility] Serum or plasma albumin criss urement (mass/volume)Ordered By: Mary Zapien on 03-29-2023 Albumin [Mass/Vol] 3.4 g/dL 3.2-5.0 [facility] Serum or plasma albumin/glob ulin mass ratioOrdered By: Mary Zapien on 03-29-2023 Albumin/Globulin [Mass ratio] 0.9 {ratio} 0.9-2.4 [facility] Serum or plasma calcium criss urement (mass/volume)Ordered By: Mary Zapien on 03-29-2023 Calcium [Mass/Vol] 9.2 mg/dL 8.5-10.1 [facility] Serum or plasma creatinine m easurement (mass/volume)Ordered By: Mary Zapien on 03-29-2023 Creatinine [Mass/Vol] 1.04 mg/dL 0.55-1.02 [facility] Comment on above: The validity of the calculated GFR & GFRAA in patients over 70 years has not been determined. Clinical correlation is essential. Serum or plasma urea nitroge n measurement (mass/volume)Ordered By: Mary Zapien on 03-29-2023 Urea nitrogen [Mass/Vol] 20 mg/dL 7-18 [facility] Thin prep Papanicolaou smear with manual screeningOrdered By: Mary Zapien on 03-29-2023 Thin prep Papanicolaou smear with manual screening 23 U/L 15-37 [facility] Thin prep Papanicolaou smear with manual screening 7 5-15 [facility] Absolute lymphocyte countOrd ered By: Matteo Anderson on 02-24-2023 Lymphocytes Auto (Unsp spec) [#/Vol] 1.69 10*3/uL 0.83-4.51 [facility] Basophil percentageOrdered B y: Matteo Anderson on 02-24-2023 Basophil percentage 94 mg/dL 74-106 [facility] Basophil percentage 137 mmol/L 136-145 [facility] Basophil percentage 4.3 mmol/L 3.5-5.1 [facility] Basophil percentage 107 mmol/L 98-107 [facility] Chloride [Moles/Vol] 107 mmol/L 98-107 [facility] Glucose [Mass/Vol] 94 mg/dL 74-106 [facility] Potassium [Moles/Vol] 4.3 mmol/L 3.5-5.1 [facility] Comment on above: Slight Hemolysis, Re sult may be falsely increased. Sodium [Moles/Vol] 137 mmol/L 136-145 [facility] Basophils (Bld) [#/Vol] 4.1 10*3/uL 4.4-11.0 [facility] Basophils (Bld) [#/Vol] 1.7 10*3/uL 2.0-7.7 [facility] Basophils/100 WBC (Bld) 42.1 % 47-70 [facility] Basophils/100 WBC (Bld) 1.0 % 0-5 [facility] Basophils/100 WBC (Bld) 0.5 % 0-1 [facility] Eosinophils/100 WBC (Bld) 1.0 % 0-5 [facility] Neutrophils (Bld) [#/Vol] 1.7 10*3/uL 2.0-7.7 [facility] Neutrophils/100 WBC (Bld) 42.1 % 47-70 [facility] WBC (Bld) [#/Vol] 4.1 10*3/uL 4.4-11.0 [facility] Blood erythrocytes count (nu mber/volume)Ordered By: Matteo Anderson on 02-24-2023 RBC (Bld) [#/Vol] 4.42 10*6/uL 4.2-5.4 [facility] Blood hemoglobin measurement (mass/volume)Ordered By: Matteo Anderson on 02-24-2023 Hemoglobin (Bld) [Mass/Vol] 14.0 g/dL 12.0-15.0 [facility] Blood lymphocytes/100 leukoc ytesOrdered By: [place] Monica on 02-24-2023 Lymphocytes/100 WBC (Bld) 41.1 % 19-41 [facility] Blood monocytes/100 leukocyt esOrdered By: [facility] Monocytes/100 WBC (Bld) 15.1 % 0-10 [facility] Blood platelet mean volumeOr dered By: [place] Monica on 02-24-2023 Platelet mean volume (Bld) [Entitic vol] 10.1 fL 6.2-12.0 [facility] Determination of erythrocyte mean corpuscular volume (MCV)Ordered By: Matteo toney on 02-24-2023 MCV (RBC) [Entitic vol] 96.2 fL 81-99 [facility] Hematocrit Auto (Bld) [Volum e fraction]Ordered By: Matteo Anderson on 02-24-2023 Hematocrit (Bld) [Volume fraction] 42.5 % 37-47 [facility] Laboratory - Chemistry and C hemistry - challengeOrdered By: Matteo Anderson on 02-24-2023 CO2 [Moles/Vol] 26.0 mmol/L 21.0-32.0 [facility] Magnesium [Mass/Vol] 1.8 mg/dL 1.6-2.6 [facility] Comment on above: Slight Hemolysis, Re sult may be falsely increased. Urea nitrogen/Creatinine [Mass ratio] 23.1 mg/mg - [facility] Laboratory - Hematology and Cell countsOrdered By: Matteo Anderson on 02-24-2023 Erythrocyte distribution width (RBC) [Entitic vol] 48.5 fL 35.1-43.9 [facility] Erythrocyte distribution width (RBC) [Ratio] 13.7 % 11.6-14.6 [facility] Immature granulocytes/100 WBC (Bld) 0.200 % 0.0-0.9 [facility] Comment on above: IG% - Immature Granu locytes (promyelocytes, myelocytes and metamyelocytes) > 1% indicates that a LEFT SHIFT is Present. MCH (RBC) [Entitic mass] 31.7 pg 27.0-32.0 [facility] Nucleated RBC/100 WBC (Bld) [Ratio] 0 % 0-5 [facility] MCHC Auto (RBC) [Mass/Vol]Or dered By: Matteo Anderson on 02-24-2023 MCHC (RBC) [Mass/Vol] 32.9 g/dL 32-36 [facility] No Panel InformationOrdered By: Matteo Anderson on 02-24-2023 Estimated Creatinine Clearance Calc 36.70 ml/min [facility] Estimated GFR (MDRD) Amer 68 mL/min >60 [facility] Comment on above: GFR Calc Estimated GFR (MDRD) Non-Af Amer 56 mL/min >60 [facility] Comment on above: Non- GFR Calc Thyroid Stimulating Hormone (TSH) 5.58 uIU/mL 0.358-3.74 [facility] 56 mL/min >60 [facility] 68 mL/min >60 [facility] 36.70 ml/min [facility] 23.1 RATIO 02-19 [facility] 1.8 mg/dL 1.6-2.6 [facility] 26.0 mmol/L 21.0-32.0 [facility] 5.58 uIU/mL 0.358-3.74 [facility] 31.7 pg 27.0-32.0 [facility] 13.7 % 11.6-14.6 [facility] 48.5 fl 35.1-43.9 [facility] 0.200 % 0.0-0.9 [facility] 0 % 0-5 [facility] Platelets bldOrdered By: Victorino Anderson on 02-24-2023 Platelets (Bld) [#/Vol] 167 10*3/uL 150-450 [facility] Serum or plasma calcium criss urement (mass/volume)Ordered By: Matteo Anderson on 02-24-2023 Calcium [Mass/Vol] 8.2 mg/dL 8.5-10.1 [facility] Serum or plasma creatinine m easurement (mass/volume)Ordered By: Matteo Anderson on 02-24-2023 Creatinine [Mass/Vol] 0.99 mg/dL 0.55-1.02 [facility] Comment on above: The validity of the calculated GFR & GFRAA in patients over 70 years has not been determined. Clinical correlation is essential. Serum or plasma urea nitroge n measurement (mass/volume)Ordered By: Matteo Anderson on 02-24-2023 Urea nitrogen [Mass/Vol] 23 mg/dL 7-18 [facility] Thin prep Papanicolaou smear with manual screeningOrdered By: Matteo Anderson on 02-24-2023 Thin prep Papanicolaou smear with manual screening 4 5-15 [facility] Absolute lymphocyte countOrd ered By: Seth Garcia on 02-23-2023 Lymphocytes Auto (Unsp spec) [#/Vol] 1.60 10*3/uL 0.83-4.51 [facility] Basophil percentageOrdered B y: Seth Garcia on 02-23-2023 Basophil percentage 156 mg/dL 74-106 [facility] Basophil percentage 129 mmol/L 136-145 [facility] Basophil percentage 5.0 mmol/L 3.5-5.1 [facility] Basophil percentage 96 mmol/L 98-107 [facility] Basophils (Bld) [#/Vol] 8.0 10*3/uL 4.4-11.0 [facility] Basophils (Bld) [#/Vol] 5.5 10*3/uL 2.0-7.7 [facility] Basophils/100 WBC (Bld) 68.3 % 47-70 [facility] Basophils/100 WBC (Bld) 0.4 % 0-5 [facility] Basophils/100 WBC (Bld) 0.5 % 0-1 [facility] Blood erythrocytes count (nu mber/volume)Ordered By: Seth Garcia on 02-23-2023 RBC (Bld) [#/Vol] 5.03 10*6/uL 4.2-5.4 [facility] Blood hemoglobin measurement (mass/volume)Ordered By: Seth Garcia on 02-23-2023 Hemoglobin (Bld) [Mass/Vol] 15.8 g/dL 12.0-15.0 [facility] Blood lymphocytes/100 leukoc ytesOrdered By: Seth Garcia on 02-23-2023 Lymphocytes/100 WBC (Bld) 20.1 % 19-41 [facility] Blood monocytes/100 leukocyt esOrdered By: Sethbasil Garcia on 02-23-2023 Monocytes/100 WBC (Bld) 10.2 % 0-10 [facility] Blood platelet mean volumeOr dered By: Seth Garcia on 02-23-2023 Platelet mean volume (Bld) [Entitic vol] 10.4 fL 6.2-12.0 [facility] Determination of erythrocyte mean corpuscular volume (MCV)Ordered By: Seth Garcia on 02-23-2023 MCV (RBC) [Entitic vol] 95.8 fL 81-99 [facility] Hematocrit Auto (Bld) [Volum e fraction]Ordered By: Seth Garcia on 02-23-2023 Hematocrit (Bld) [Volume fraction] 48.2 % 37-47 [facility] MCHC Auto (RBC) [Mass/Vol]Or dered By: Seth Garcia on 02-23-2023 MCHC (RBC) [Mass/Vol] 32.8 g/dL 32-36 [facility] No Panel InformationOrdered By: Sethbasil Garcia on 02-23-2023 Troponin I High Sensitivity 40 pg/mL 3.0-54.0 [facility] Comment on above: Please Note: New Sarah t Units and Gender Specific Reference Ranges. For more information see Policy Stat Procedure [place] High Sensitivity Troponin (TNIH) and attachments. 31.4 pg 27.0-32.0 [facility] 13.6 % 11.6-14.6 [facility] 48.4 fl 35.1-43.9 [facility] 0.500 % 0.0-0.9 [facility] 0 % 0-5 [facility] 31 mL/min >60 [facility] 37 mL/min >60 [facility] 20.75 ml/min [facility] 20.1 RATIO 10-20 [facility] 40 pg/mL 3.0-54.0 [facility] 23.0 mmol/L 21.0-32.0 [facility] Platelets bldOrdered By: Joyce Garcia on 02-23-2023 Platelets (Bld) [#/Vol] 239 10*3/uL 150-450 [facility] Serum or plasma calcium criss urement (mass/volume)Ordered By: Seth Garcia on 02-23-2023 Calcium [Mass/Vol] 9.6 mg/dL 8.5-10.1 [facility] Serum or plasma creatinine m easurement (mass/volume)Ordered By: Seth Garcia on 02-23-2023 Creatinine [Mass/Vol] 1.69 mg/dL 0.55-1.02 [facility] Serum or plasma urea nitroge n measurement (mass/volume)Ordered By: Seth Garcia on 02-23-2023 Urea nitrogen [Mass/Vol] 34 mg/dL 11-17 [facility] Thin prep Papanicolaou smear with manual screeningOrdered By: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 01-04-2023 Basophil percentage 90 mg/dL 74-106 [facility] Basophil percentage 140 mmol/L 136-145 [facility] Basophil percentage 4.2 mmol/L 3.5-5.1 [facility] Basophil percentage 113 mmol/L 98-107 [facility] Basophils (Bld) [#/Vol] 4.7 10*3/uL 4.4-11.0 [facility] Basophils (Bld) [#/Vol] 2.6 10*3/uL 2.0-7.7 [facility] Basophils/100 WBC (Bld) 0.4 % 0-1 [facility] Basophils/100 WBC (Bld) 54.0 % 47-70 [facility] Basophils/100 WBC (Bld) 1.3 % 0-5 [facility] Chloride [Moles/Vol] 113 mmol/L 98-107 [facility] Eosinophils/100 WBC (Bld) 1.3 % 0-5 [facility] Glucose [Mass/Vol] 90 mg/dL 74-106 [facility] Neutrophils (Bld) [#/Vol] 2.6 10*3/uL 2.0-7.7 [facility] Neutrophils/100 WBC (Bld) 54.0 % 47-70 [facility] Potassium [Moles/Vol] 4.2 mmol/L 3.5-5.1 [facility] Sodium [Moles/Vol] 140 mmol/L 136-145 [facility] WBC (Bld) [#/Vol] 4.7 10*3/uL 4.4-11.0 [facility] Blood erythrocytes count (nu mber/volume)Ordered By: Saravanan Monzon on 01-04-2023 RBC (Bld) [#/Vol] 3.47 10*6/uL 4.2-5.4 [facility] Blood hemoglobin measurement (mass/volume)Ordered By: Saravanan Monzon on 01-04-2023 Hemoglobin (Bld) [Mass/Vol] 11.2 g/dL 12.0-15.0 [facility] Blood lymphocytes/100 leukoc ytesOrdered By: Saravanan Monzon on 01-04-2023 Lymphocytes/100 WBC (Bld) 30.8 % 19-41 [facility] Blood monocytes/100 leukocyt esOrdered By: Saravanan Monzon on 01-04-2023 Monocytes/100 WBC (Bld) 13.1 % 0-10 [facility] Blood platelet mean volumeOr dered By: Saravanan Monzon on 01-04-2023 Platelet mean volume (Bld) [Entitic vol] 11.0 fL 6.2-12.0 [facility] Determination of erythrocyte mean corpuscular volume (MCV)Ordered By: Saravanan Monzon on 01-04-2023 MCV (RBC) [Entitic vol] 98.3 fL 81-99 [facility] Hematocrit Auto (Bld) [Volum e fraction]Ordered By: Saravanan Monzon on 01-04-2023 Hematocrit (Bld) [Volume fraction] 34.1 % 37-47 [facility] Laboratory - Chemistry and C hemistry - challengeOrdered By: Saravanan Monzon on 01-04-2023 CO2 [Moles/Vol] 20.0 mmol/L 21.0-32.0 [facility] Urea nitrogen/Creatinine [Mass ratio] 27.1 mg/mg 10-20 [facility] Laboratory - Hematology and Cell countsOrdered By: Saravanan Monzon on 01-04-2023 Erythrocyte distribution width (RBC) [Entitic vol] 49.4 fL 35.1-43.9 [facility] Erythrocyte distribution width (RBC) [Ratio] 13.8 % 11.6-14.6 [facility] Immature granulocytes/100 WBC (Bld) 0.400 % 0.0-0.9 [facility] Comment on above: IG% - Immature Granu locytes (promyelocytes, myelocytes and metamyelocytes) > 1% indicates that a LEFT SHIFT is Present. MCH (RBC) [Entitic mass] 32.3 pg 27.0-32.0 [facility] Nucleated RBC/100 WBC (Bld) [Ratio] 0 % 0-5 [facility] MCHC Auto (RBC) [Mass/Vol]Or dered By: Saravanan Monzon on 01-04-2023 MCHC (RBC) [Mass/Vol] 32.8 g/dL 32-36 [facility] No Panel InformationOrdered By: Saravanan Monzon on 01-04-2023 Estimated Creatinine Clearance Calc 35.83 ml/min [facility] Estimated GFR (MDRD) Amer 102 mL/min >60 [facility] Comment on above: GFR Calc Estimated GFR (MDRD) Non-Af Amer 84 mL/min >60 [facility] Comment on above: Non- GFR Calc 32.3 pg 27.0-32.0 [facility] 13.8 % 11.6-14.6 [facility] 49.4 fl 35.1-43.9 [facility] 0.400 % 0.0-0.9 [facility] 0 % 0-5 [facility] 84 mL/min >60 [facility] 102 mL/min >60 [facility] 35.83 ml/min [facility] 27.1 RATIO 10-20 [facility] 20.0 mmol/L 21.0-32.0 [facility] Platelets bldOrdered By: Yousif Monzon on 01-04-2023 Platelets (Bld) [#/Vol] 161 10*3/uL 150-450 [facility] Serum or plasma calcium criss urement (mass/volume)Ordered By: Saravanan Monzon on 01-04-2023 Calcium [Mass/Vol] 7.9 mg/dL 8.5-10.1 [facility] Serum or plasma creatinine m easurement (mass/volume)Ordered By: Saravanan Monzon on 01-04-2023 Creatinine [Mass/Vol] 0.70 mg/dL 0.55-1.02 [facility] Comment on above: The validity of the calculated GFR & GFRAA in patients over 70 years has not been determined. Clinical correlation is essential. Serum or plasma urea nitroge n measurement (mass/volume)Ordered By: Saravanan Monzon on 01-04-2023 Urea nitrogen [Mass/Vol] 19 mg/dL 7-18 [facility] Thin prep Papanicolaou smear with manual screeningOrdered By: Saravanan Monzon on 01-04-2023 Thin prep Papanicolaou smear with manual screening 7 5-15 [facility] Absolute lymphocyte countOrd ered By: Henrry Cano on 01-03-2023 Lymphocytes Auto (Unsp spec) [#/Vol] 1.65 10*3/uL 0.83-4.51 [facility] Basophil percentageOrdered B y: Henrry Cano on 01-03-2023 Basophils/100 WBC (Bld) 0.5 % 0-1 [facility] Chloride [Moles/Vol] 108 mmol/L 98-107 [facility] Eosinophils/100 WBC (Bld) 1.2 % 0-5 [facility] Glucose [Mass/Vol] 135 mg/dL 74-106 [facility] Comment on above: Fasting Glucose resu lt greater than or equal to 126 mg/dL suggests DIABETES MELLITUS per A.D.A. criteria. Neutrophils (Bld) [#/Vol] 2.0 10*3/uL 2.0-7.7 [facility] Neutrophils/100 WBC (Bld) 46.9 % 47-70 [facility] Potassium [Moles/Vol] 4.2 mmol/L 3.5-5.1 [facility] Comment on above: Slight Hemolysis, Re sult may be falsely increased. Sodium [Moles/Vol] 138 mmol/L 136-145 [facility] WBC (Bld) [#/Vol] 4.3 10*3/uL 4.4-11.0 [facility] Blood erythrocytes count (nu mber/volume)Ordered By: Henrry Cano on 01-03-2023 RBC (Bld) [#/Vol] 4.15 10*6/uL 4.2-5.4 [facility] Blood hemoglobin measurement (mass/volume)Ordered By: Henrry Cano on 01-03-2023 Hemoglobin (Bld) [Mass/Vol] 13.2 g/dL 12.0-15.0 [facility] Blood lymphocytes/100 leukoc ytesOrdered By: Henrry Cano on 01-03-2023 Lymphocytes/100 WBC (Bld) 38.5 % 19-41 [facility] Blood monocytes/100 leukocyt esOrdered By: Henrry Cano on 01-03-2023 Monocytes/100 WBC (Bld) 12.4 % 0-10 [facility] Blood platelet mean volumeOr dered By: Henrry Cano on 01-03-2023 Platelet mean volume (Bld) [Entitic vol] 10.7 fL 6.2-12.0 [facility] Determination of erythrocyte mean corpuscular volume (MCV)Ordered By: Henrry Cano on 01-03-2023 MCV (RBC) [Entitic vol] 94.9 fL 81-99 [facility] Hematocrit Auto (Bld) [Volum e fraction]Ordered By: Henrry Cano on 01-03-2023 Hematocrit (Bld) [Volume fraction] 39.4 % 37-47 [facility] Laboratory - Chemistry and C hemistry - challengeOrdered By: Henrry Cano on 01-03-2023 CO2 [Moles/Vol] 23.0 mmol/L 21.0-32.0 [facility] Natriuretic peptide B (Bld) [Mass/Vol] 445.6 pg/mL 0-100 [facility] Urea nitrogen/Creatinine [Mass ratio] 21.5 mg/mg 10-20 [facility] Laboratory - Hematology and Cell countsOrdered By: Henrry Cano on 01-03-2023 Erythrocyte distribution width (RBC) [Entitic vol] 46.8 fL 35.1-43.9 [facility] Erythrocyte distribution width (RBC) [Ratio] 13.4 % 11.6-14.6 [facility] Immature granulocytes/100 WBC (Bld) 0.500 % 0.0-0.9 [facility] Comment on above: IG% - Immature Granu locytes (promyelocytes, myelocytes and metamyelocytes) > 1% indicates that a LEFT SHIFT is Present. MCH (RBC) [Entitic mass] 31.8 pg 27.0-32.0 [facility] Nucleated RBC/100 WBC (Bld) [Ratio] 0 % 0-5 [facility] MCHC Auto (RBC) [Mass/Vol]Or dered By: Henrry Cano on 01-03-2023 MCHC (RBC) [Mass/Vol] 33.5 g/dL 32-36 [facility] No Panel InformationOrdered By: Saravanan Monzon on 01-03-2023 Troponin I High Sensitivity 62 pg/mL 3.0-54.0 [facility] Comment on above: Please Note: New Sarah t Units and Gender Specific Reference Ranges. For more information see Policy Stat Procedure [place] High Sensitivity Troponin (TNIH) and attachments. 62 pg/mL 3.0-54.0 [facility] No Panel InformationOrdered By: Henrry Cano on 01-03-2023 Troponin I High Sensitivity 53 pg/mL 3.0-54.0 [facility] Comment on above: Please Note: New Sarah t Units and Gender Specific Reference Ranges. For more information see Policy Stat Procedure [place] High Sensitivity Troponin (TNIH) and attachments. Estimated Creatinine Clearance Calc 39.07 ml/min [facility] Estimated GFR (MDRD) Amer 74 mL/min >60 [facility] Comment on above: GFR Calc Estimated GFR (MDRD) Non-Af Amer 61 mL/min >60 [facility] Comment on above: Non- GFR Calc 445.6 pg/mL 0-100 [facility] Platelets bldOrdered By: Kika Cano on 01-03-2023 Platelets (Bld) [#/Vol] 173 10*3/uL 150-450 [facility] Serum or plasma calcium criss urement (mass/volume)Ordered By: Henrry Cano on 01-03-2023 Calcium [Mass/Vol] 9.0 mg/dL 8.5-10.1 [facility] Serum or plasma creatinine m easurement (mass/volume)Ordered By: Henrry Cano on 01-03-2023 Creatinine [Mass/Vol] 0.93 mg/dL 0.55-1.02 [facility] Comment on above: The validity of the calculated GFR & GFRAA in patients over 70 years has not been determined. Clinical correlation is essential. Serum or plasma urea nitroge n measurement (mass/volume)Ordered By: Henrry Cano on 01-03-2023 Urea nitrogen [Mass/Vol] 20 mg/dL 7-18 [facility] Thin prep Papanicolaou smear with manual screeningOrdered By: Henrry Cano on 01-03-2023 Thin prep Papanicolaou smear with manual screening 7 5-15 [facility] 36on 01-01-2023 36 Images loaded and av ailable for review with Dr. Gonzalez 01/05/2023. [facility] 36on 12-30-[address] chest as scheduled 12/29/2022 at [facility]. Imaging report scanned to media tab for review. Images requested to be electronically pushed to PACS for review at upcoming appointment with Dr. Gonzalez 01/05/2023. Normal [facility] Absolute lymphocyte countOrd ered By: Matteo Jonas on 12-29-2022 Lymphocytes Auto (Unsp spec) [#/Vol] 1.33 10*3/uL 0.83-4.51 [facility] Basophil percentageOrdered B y: Matteo Jonas on 12-29-2022 Basophil percentage < 0.9 mg/dL 0.55-1.02 [facility] Basophil percentage 120 mg/dL 74-106 [facility] Basophil percentage 6.5 g/dL 6.4-8.2 [facility] Basophil percentage 0.50 mg/dL 0.20-1.00 [facility] Basophil percentage 136 mmol/L 136-145 [facility] Basophil percentage 4.4 mmol/L 3.5-5.1 [facility] Basophil percentage 105 mmol/L 98-107 [facility] Basophil percentage 178 U/L 84-246 [facility] Basophils (Bld) [#/Vol] 4.6 10*3/uL 4.4-11.0 [facility] Basophils (Bld) [#/Vol] 2.7 10*3/uL 2.0-7.7 [facility] Basophils/100 WBC (Bld) 0.2 % 0-1 [facility] Basophils/100 WBC (Bld) 59.4 % 47-70 [facility] Basophils/100 WBC (Bld) 1.1 % 0-5 [facility] Bilirubin [Mass/Vol] 0.50 mg/dL 0.20-1.00 [facility] Comment on above: For patients on eltr ombopag therapy, use of Dimension [place] TBIL is not recommended. Chloride [Moles/Vol] 105 mmol/L 98-107 [facility] Eosinophils/100 WBC (Bld) 1.1 % 0-5 [facility] Glucose [Mass/Vol] 120 mg/dL 74-106 [facility] Comment on above: Fasting Glucose resu lt from 100 to 125 mg/dL suggests IMPAIRED HOMEOSTASIS per A.D.A. criteria. LDH [Catalytic activity/Vol] 178 U/L 84-246 [facility] Neutrophils (Bld) [#/Vol] 2.7 10*3/uL 2.0-7.7 [facility] Neutrophils/100 WBC (Bld) 59.4 % 47-70 [facility] Potassium [Moles/Vol] 4.4 mmol/L 3.5-5.1 [facility] Protein [Mass/Vol] 6.5 g/dL 6.4-8.2 [facility] Sodium [Moles/Vol] 136 mmol/L 136-145 [facility] WBC (Bld) [#/Vol] 4.6 10*3/uL 4.4-11.0 [facility] Blood erythrocytes count (nu mber/volume)Ordered By: Matteo Jonas on 12-29-2022 RBC (Bld) [#/Vol] 3.94 10*6/uL 4.2-5.4 [facility] Blood hemoglobin measurement (mass/volume)Ordered By: Matteo Jonas on 12-29-2022 Hemoglobin (Bld) [Mass/Vol] 13.0 g/dL 12.0-15.0 [facility] Blood lymphocytes/100 leukoc ytesOrdered By: Matteo Jonas on 12-29-2022 Lymphocytes/100 WBC (Bld) 29.2 % 19-41 [facility] Blood monocytes/100 leukocyt esOrdered By: Matteo Jonas on 12-29-2022 Monocytes/100 WBC (Bld) 9.9 % 0-10 [facility] Blood platelet mean volumeOr dered By: Matteo Jonas on 12-29-2022 Platelet mean volume (Bld) [Entitic vol] 10.4 fL 6.2-12.0 [facility] Determination of erythrocyte mean corpuscular volume (MCV)Ordered By: Matteo Jonas on 12-29-2022 MCV (RBC) [Entitic vol] 96.2 fL 81-99 [facility] Hematocrit Auto (Bld) [Volum e fraction]Ordered By: Matteo Jonas on 12-29-2022 Hematocrit (Bld) [Volume fraction] 37.9 % 37-47 [facility] Laboratory - Chemistry and C hemistry - challengeOrdered By: Matteo Jonas on 12-29-2022 ALP [Catalytic activity/Vol] 78 U/L 45-117 [facility] ALT [Catalytic activity/Vol] 18 U/L 13-56 [facility] CO2 [Moles/Vol] 26.0 mmol/L 21.0-32.0 [facility] Globulin (S) [Mass/Vol] 3.1 g/dL 2.2-4.2 [facility] Urea nitrogen/Creatinine [Mass ratio] 22.1 mg/mg 10-20 [facility] Laboratory - Hematology and Cell countsOrdered By: Matteo Jonas on 12-29-2022 Erythrocyte distribution width (RBC) [Entitic vol] 47.0 fL 35.1-43.9 [facility] Erythrocyte distribution width (RBC) [Ratio] 13.3 % 11.6-14.6 [facility] Immature granulocytes/100 WBC (Bld) 0.200 % 0.0-0.9 [facility] Comment on above: IG% - Immature Granu locytes (promyelocytes, myelocytes and metamyelocytes) > 1% indicates that a LEFT SHIFT is Present. MCH (RBC) [Entitic mass] 33.0 pg 27.0-32.0 [facility] Nucleated RBC/100 WBC (Bld) [Ratio] 0 % 0-5 [facility] MCHC Auto (RBC) [Mass/Vol]Or dered By: Matteo Jonas on 12-29-2022 MCHC (RBC) [Mass/Vol] 34.3 g/dL 32-36 [facility] No Panel InformationOrdered By: Matteo Jonas on 12-29-2022 Bedside Estimated GFR (eGFR) > 60.0000 mL/min >60 [facility] > 60.0000 mL/min >60 [facility] CA 125 Antigen 23.3 U/mL 0.0-38.1 [facility] Comment on above: [employer] El ectrochemiluminescence Immunoassay(ECLIA)Values obtained with different assay methods or kits cannotbe used interchangeably. Results cannot be interpreted asabsolute evidence of the presence or absence of malignantdisease. CA 15-3 Antigen 35.4 U/mL 0.0-25.0 [facility] Comment on above: [employer] El ectrochemiluminescence Immunoassay(ECLIA)Values obtained with different assay methods or kits cannotbe used interchangeably. Results cannot be interpreted asabsolute evidence of the presence or absence of malignantdisease.Performed at: [facility], [place] [id number] Director: Maxx Yi PhD, Phone: [phone] [place] 27.29 26.9 U/mL 0.0-38.6 [facility] Comment on above: [employer] Immu nochemiluminometric Methodology (ICMA)Values obtained with different assay methods or kits cannotbe used interchangeably. Results cannot be interpreted asabsolute evidence of the presence or absence of malignantdisease. Estimated Creatinine Clearance Calc 42.25 ml/min [facility] Estimated GFR (MDRD) Amer 81 mL/min >60 [facility] Comment on above: GFR Calc Estimated GFR (MDRD) Non-Af Amer 67 mL/min >60 [facility] Comment on above: Non- GFR Calc 33.0 pg 27.0-32.0 [facility] 13.3 % 11.6-14.6 [facility] 47.0 fl 35.1-43.9 [facility] 0.200 % 0.0-0.9 [facility] 0 % 0-5 [facility] 67 mL/min >60 [facility] 81 mL/min >60 [facility] 42.25 ml/min [facility] 22.1 RATIO 10-20 [facility] 3.1 g/dL 2.2-4.2 [facility] 78 U/L 45-117 [facility] 18 U/L 13-56 [facility] 26.0 mmol/L 21.0-32.0 [facility] 23.3 U/mL 0.0-38.1 [facility] 35.4 U/mL 0.0-25.0 [facility] 26.9 U/mL 0.0-38.6 [facility] Platelets bldOrdered By: Victorino Jonas on 12-29-2022 Platelets (Bld) [#/Vol] 171 10*3/uL 150-450 [facility] Serum or plasma albumin criss urement (mass/volume)Ordered By: Matteo Jonas on 12-29-2022 Albumin [Mass/Vol] 3.4 g/dL 3.2-5.0 [facility] Serum or plasma albumin/glob ulin mass ratioOrdered By: Matteo Jonas on 12-29-2022 Albumin/Globulin [Mass ratio] 1.1 {ratio} 0.9-2.4 [facility] Serum or plasma calcium criss urement (mass/volume)Ordered By: Matteo Jonas on 12-29-2022 Calcium [Mass/Vol] 8.7 mg/dL 8.5-10.1 [facility] Serum or plasma carcinoembry onic antigen measurement (mass/volume)Ordered By: Matteo Jonas on 12-29-2022 Carcinoembryonic Ag [Mass/Vol] 2.1 ng/mL 0.0-4.7 [facility] Comment on above: Nonsmokers <3.9 Smok ers <5.6[employer] Electrochemiluminescence Immunoassay(ECLIA)Values obtained with different assay methods or kitscannot be used interchangeably. Results cannot beinterpreted as absolute evidence of the presence orabsence of malignant disease. Serum or plasma creatinine m easurement (mass/volume)Ordered By: Matteo Jonas on 12-29-2022 Creatinine [Mass/Vol] 0.86 mg/dL 0.55-1.02 [facility] Comment on above: The validity of the calculated GFR & GFRAA in patients over 70 years has not been determined. Clinical correlation is essential. Serum or plasma urea nitroge n measurement (mass/volume)Ordered By: Matteo Jonas on 12-29-2022 Urea nitrogen [Mass/Vol] 19 mg/dL 7-18 [facility] Thin prep Papanicolaou smear with manual screeningOrdered By: Matteo Jonas on 12-29-2022 Thin prep Papanicolaou smear with manual screening 15 U/L 15-37 [facility] Thin prep Papanicolaou smear with manual screening 5 5-15 [facility] Laboratory - Chemistry and C hemistry - challengeOrdered By: Teagan Hall on 12-11-2022 T4 [Mass/Vol] 8.7 ug/dL 4.8-13.9 [facility] No Panel InformationOrdered By: Teagan Hall on 12-11-2022 Thyroid Stimulating Hormone (TSH) 1.04 uIU/mL 0.358-3.74 [facility] 8.7 ug/dL 4.8-13.9 [facility] 1.04 uIU/mL 0.358-3.74 [facility] Absolute lymphocyte countOrd ered By: Leena Serra on 10-30-2022 Lymphocytes Auto (Unsp spec) [#/Vol] 1.30 10*3/uL 0.83-4.51 [facility] Basophil percentageOrdered B y: Leena Serra on 10-30-2022 Basophil percentage 67 mg/dL 74-106 [facility] Basophil percentage 7.1 g/dL 6.4-8.2 [facility] Basophil percentage 0.40 mg/dL 0.20-1.00 [facility] Basophil percentage 138 mmol/L 136-145 [facility] Basophil percentage 4.4 mmol/L 3.5-5.1 [facility] Basophil percentage 108 mmol/L 98-107 [facility] Basophils (Bld) [#/Vol] 3.8 10*3/uL 4.4-11.0 [facility] Basophils (Bld) [#/Vol] 1.9 10*3/uL 2.0-7.7 [facility] Basophils/100 WBC (Bld) 0.5 % 0-1 [facility] Basophils/100 WBC (Bld) 49.1 % 47-70 [facility] Basophils/100 WBC (Bld) 1.6 % 0-5 [facility] Bilirubin [Mass/Vol] 0.40 mg/dL 0.20-1.00 [facility] Comment on above: For patients on eltr ombopag therapy, use of Dimension [place] TBIL is not recommended. Chloride [Moles/Vol] 108 mmol/L 98-107 [facility] Eosinophils/100 WBC (Bld) 1.6 % 0-5 [facility] Glucose [Mass/Vol] 67 mg/dL 74-106 [facility] Neutrophils (Bld) [#/Vol] 1.9 10*3/uL 2.0-7.7 [facility] Neutrophils/100 WBC (Bld) 49.1 % 47-70 [facility] Potassium [Moles/Vol] 4.4 mmol/L 3.5-5.1 [facility] Protein [Mass/Vol] 7.1 g/dL 6.4-8.2 [facility] Sodium [Moles/Vol] 138 mmol/L 136-145 [facility] WBC (Bld) [#/Vol] 3.8 10*3/uL 4.4-11.0 [facility] Blood erythrocytes count (nu mber/volume)Ordered By: Leena Serra on 10-30-2022 RBC (Bld) [#/Vol] 4.20 10*6/uL 4.2-5.4 [facility] Blood hemoglobin measurement (mass/volume)Ordered By: Leena Serra on 10-30-2022 Hemoglobin (Bld) [Mass/Vol] 13.1 g/dL 12.0-15.0 [facility] Blood lymphocytes/100 leukoc ytesOrdered By: Leena Serra on 10-30-2022 Lymphocytes/100 WBC (Bld) 34.3 % 19-41 [facility] Blood monocytes/100 leukocyt esOrdered By: Leenajulia Serra on 10-30-2022 Monocytes/100 WBC (Bld) 14.2 % 0-10 [facility] Blood platelet mean volumeOr dered By: Leena Serra on 10-30-2022 Platelet mean volume (Bld) [Entitic vol] 10.8 fL 6.2-12.0 [facility] Determination of erythrocyte mean corpuscular volume (MCV)Ordered By: Leena Serra on 10-30-2022 MCV (RBC) [Entitic vol] 94.8 fL 81-99 [facility] Hematocrit Auto (Bld) [Volum e fraction]Ordered By: Leena Serra on 10-30-2022 Hematocrit (Bld) [Volume fraction] 39.8 % 37-47 [facility] Laboratory - Chemistry and C hemistry - challengeOrdered By: Leenajulia Serra on 10-30-2022 ALP [Catalytic activity/Vol] 60 U/L 45-117 [facility] ALT [Catalytic activity/Vol] 20 U/L 13-56 [facility] CO2 [Moles/Vol] 28.0 mmol/L 21.0-32.0 [facility] Globulin (S) [Mass/Vol] 3.7 g/dL 2.2-4.2 [facility] Urea nitrogen/Creatinine [Mass ratio] 26.0 mg/mg 10-20 [facility] Laboratory - Hematology and Cell countsOrdered By: Leena Serra on 10-30-2022 Erythrocyte distribution width (RBC) [Entitic vol] 47.7 fL 35.1-43.9 [facility] Erythrocyte distribution width (RBC) [Ratio] 13.7 % 11.6-14.6 [facility] Immature granulocytes/100 WBC (Bld) 0.300 % 0.0-0.9 [facility] Comment on above: IG% - Immature Granu locytes (promyelocytes, myelocytes and metamyelocytes) > 1% indicates that a LEFT SHIFT is Present. MCH (RBC) [Entitic mass] 31.2 pg 27.0-32.0 [facility] Nucleated RBC/100 WBC (Bld) [Ratio] 0 % 0-5 [facility] MCHC Auto (RBC) [Mass/Vol]Or dered By: Leena Serra on 10-30-2022 MCHC (RBC) [Mass/Vol] 32.9 g/dL 32-36 [facility] No Panel InformationOrdered By: Leena Serra on 10-30-2022 Estimated GFR (MDRD) Amer 82 mL/min >60 [facility] Comment on above: GFR Calc Estimated GFR (MDRD) Non-Af Amer 68 mL/min >60 [facility] Comment on above: Non- GFR Calc 31.2 pg 27.0-32.0 [facility] 13.7 % 11.6-14.6 [facility] 47.7 fl 35.1-43.9 [facility] 0.300 % 0.0-0.9 [facility] 0 % 0-5 [facility] 68 mL/min >60 [facility] 82 mL/min >60 [facility] 26.0 RATIO 10-20 [facility] 3.7 g/dL 2.2-4.2 [facility] 60 U/L 45-117 [facility] 20 U/L 13-56 [facility] 28.0 mmol/L 21.0-32.0 [facility] Platelets bldOrdered By: Yolette Serra on 10-30-2022 Platelets (Bld) [#/Vol] 179 10*3/uL 150-450 [facility] Serum or plasma albumin criss urement (mass/volume)Ordered By: Leenajulia Serra on 10-30-2022 Albumin [Mass/Vol] 3.4 g/dL 3.2-5.0 [facility] Serum or plasma albumin/glob ulin mass ratioOrdered By: [facility] on 10-30-2022 Albumin/Globulin [Mass ratio] 0.9 {ratio} 0.9-2.4 [facility] Serum or plasma calcium criss urement (mass/volume)Ordered By: [facility] on 10-30-2022 Calcium [Mass/Vol] 9.3 mg/dL 8.5-10.1 [facility] Serum or plasma creatinine m easurement (mass/volume)Ordered By: [facility] on 10-30-2022 Creatinine [Mass/Vol] 0.84 mg/dL 0.55-1.02 [facility] Comment on above: The validity of the calculated GFR & GFRAA in patients over 70 years has not been determined. Clinical correlation is essential. Serum or plasma urea nitroge n measurement (mass/volume)Ordered By: [facility] on 10-30-2022 Urea nitrogen [Mass/Vol] 22 mg/dL 7-18 [facility] Thin prep Papanicolaou smear with manual screeningOrdered By: [facility] on 10-30-2022 Thin prep Papanicolaou smear with manual screening 19 U/L 15-37 [facility] Thin prep Papanicolaou smear with manual screening 2 5-15 [facility] 36on 10-28-2022 36 Navigator contacted oncology office. Patient is scheduled at [facility] for CT chest 12/29/2022. Navigator will obtain images for upcoming telehealth appt with Dr. Gonzalez 01/05/23. Mailed [facility] appt details to home address. [email or web address] [address] [place] [address] ? ~42 mi [facility] 36on 10-13-2022 36 Left voicemail with Ms. Ferguson requesting call back with CT follow-up appointment date in [place]. Navigator will request imaging and arrange lung nodule clinic follow-up with Dr. Gonzalez after. [facility] 36on 09-30-2022 36 Discussed patient wi th Dr. Vidal after lung nodule clinic appointment on 09/29/2022. Patient lives in [place] and will plan to have follow-up imaging ordered and scheduled in [place]. She has upcoming appointment with her oncologist next week and we will have him place referral for imaging. Navigator will contact patient to determine when her follow-up imaging is scheduled and will arrange to have images sent and follow-up with Dr. Patito Gonzalez as VV after. [facility] Office Visiton 09-29-2022 Follow-up visit [id number] Kika Fergusonyelean lerner 1935 F Date Provider Department Center 09/29/2022 TEVIN [facility] PUL None No family history on file Level of Service:95637 HI PHYS/QHP TELEPHONE EVALUATION 21-30 MIN Reason for Visit and Comments: Lung Nodule [519] [facility] ECG 12-LEADon 09-23-2022 ECG 12-LEAD IMPRESSION: Sinus rhythm Atrial premature complex Probable left atrial enlargement Incomplete RBBB and LAFB Probable anterior infarct, acute Electronically Signed On 09-23-2022 11:21:13 EDT by Tevin Barber [facility] XR CHEST 1 VIEWon 09-23-2022 XR CHEST 1 VIEW Patient Name: ROBERTO FERGUSON : 1935 [id number] Exam Date/Time: 09/22/2022 15:58 Procedure: XR CHEST [...] Signed Date/Time: 09/23/2022 3:05 PM EDT [facility] Nursing Noteon 09-22-2022 Nursing Note Patient discharged h ome, discharge instructions provided to patient and family, they verbally acknowledged understanding. No discharge meds ordered. IV removed, site WDL. Patient with her belongings transported via wheelchair to private car [facility] Op Noteon 09-22-2022 Op Note S/p navigational bro nchoscopy with transbronchial biopsies, brushings and BAL of apical RUL and anterior RUL lesions. S/p EBUS with TBNA of lymph nodes 11L, 7, 4R, and 11R. S/p endobronchial brushing of RUL endobronchial lesion. Please refer to provation note for further details. Normal [facility] CT CHEST WO IV CONTRASTon CT CHEST WO IV CONTRAST Patient Name: ROBERTO FERGUSON : 1935 [id number] Exam Date/Time: 09/20/2022 08:08 Procedure: CT CHEST [...] Electronically Signed Date/Time: 09/21/2022 4:07 PM EDT [facility] 09-18-2022 36 There is medical rec ords from [place] scanned in media on 09/15. Please review them and thank you.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 spec) [#/Vol] 1.03 10*3/uL 0.83-4.51 [facility] Basophil percentageOrdered B y: Dr. Serra on 05-22-2022 Basophils/100 WBC (Bld) 0.3 % 0-1 [facility] Bilirubin [Mass/Vol] 0.70 mg/dL 0.20-1.00 [facility] Comment on above: For patients on eltr ombopag therapy, use of Dimension [place] TBIL is not recommended. Chloride [Moles/Vol] 104 mmol/L 98-107 [facility] Eosinophils/100 WBC (Bld) 0.6 % 0-5 [facility] Glucose [Mass/Vol] 110 mg/dL 74-106 [facility] Comment on above: Fasting Glucose resu lt from 100 to 125 mg/dL suggests IMPAIRED HOMEOSTASIS per A.D.A. criteria. Neutrophils (Bld) [#/Vol] 4.5 10*3/uL 2.0-7.7 [facility] Neutrophils/100 WBC (Bld) 70.2 % 47-70 [facility] Potassium [Moles/Vol] 3.9 mmol/L 3.5-5.1 [facility] Protein [Mass/Vol] 7.1 g/dL 6.4-8.2 [facility] Sodium [Moles/Vol] 139 mmol/L 136-145 [facility] WBC (Bld) [#/Vol] 6.5 10*3/uL 4.4-11.0 [facility] Blood erythrocytes count (nu mber/volume)Ordered By: Dr. Serra on 05-22-2022 RBC (Bld) [#/Vol] 4.29 10*6/uL 4.2-5.4 [facility] Blood hemoglobin measurement (mass/volume)Ordered By: Dr. Serra on 05-22-2022 Hemoglobin (Bld) [Mass/Vol] 13.4 g/dL 12.0-15.0 [facility] Blood lymphocytes/100 leukoc ytesOrdered By: Dr. Serra on 05-22-2022 Lymphocytes/100 WBC (Bld) 15.9 % 19-41 [facility] Blood monocytes/100 leukocyt esOrdered By: Dr. Serra on 05-22-2022 Monocytes/100 WBC (Bld) 12.7 % 0-10 [facility] Blood platelet mean volumeOr dered By: Dr. Serra on 05-22-2022 Platelet mean volume (Bld) [Entitic vol] 12.0 fL 6.2-12.0 [facility] Determination of erythrocyte mean corpuscular volume (MCV)Ordered By: Dr. Serra on 05-22-2022 MCV (RBC) [Entitic vol] 96.0 fL 81-99 [facility] Hematocrit Auto (Bld) [Volum e fraction]Ordered By: Dr. Serra on 05-22-2022 Hematocrit (Bld) [Volume fraction] 41.2 % 37-47 [facility] Laboratory - Chemistry and C hemistry - challengeOrdered By: Dr. Serra on 05-22-2022 ALP [Catalytic activity/Vol] 55 U/L 45-117 [facility] ALT [Catalytic activity/Vol] 24 U/L 13-56 [facility] CO2 [Moles/Vol] 25.0 mmol/L 21.0-32.0 [facility] Globulin (S) [Mass/Vol] 3.7 g/dL 2.2-4.2 [facility] Urea nitrogen/Creatinine [Mass ratio] 22.0 mg/mg 10-20 [facility] Laboratory - Hematology and Cell countsOrdered By: Dr. Serra on 05-22-2022 Erythrocyte distribution width (RBC) [Entitic vol] 48.5 fL 35.1-43.9 [facility] Erythrocyte distribution width (RBC) [Ratio] 13.8 % 11.6-14.6 [facility] Immature granulocytes/100 WBC (Bld) 0.300 % 0.0-0.9 [facility] Comment on above: IG% - Immature Granu locytes (promyelocytes, myelocytes and metamyelocytes) > 1% indicates that a LEFT SHIFT is Present. MCH (RBC) [Entitic mass] 31.2 pg 27.0-32.0 [facility] Nucleated RBC/100 WBC (Bld) [Ratio] 0 % 0-5 [facility] MCHC Auto (RBC) [Mass/Vol]Or dered By: Dr. Serra on 05-22-2022 MCHC (RBC) [Mass/Vol] 32.5 g/dL 32-36 [facility] No Panel InformationOrdered By: Dr. Serra on 05-22-2022 Estimated GFR (MDRD) Amer 91 mL/min >60 [facility] Comment on above: GFR Calc Estimated GFR (MDRD) Non-Af Amer 75 mL/min >60 [facility] Comment on above: Non- GFR Calc Platelets bldOrdered By: Dr. Serra on 05-22-2022 Platelets (Bld) [#/Vol] 178 10*3/uL 150-450 [facility] Serum or plasma albumin criss urement (mass/volume)Ordered By: Dr. Serra on 05-22-2022 Albumin [Mass/Vol] 3.4 g/dL 3.2-5.0 [facility] Serum or plasma albumin/glob ulin mass ratioOrdered By: Dr. Serra on 05-22-2022 Albumin/Globulin [Mass ratio] 0.9 {ratio} 0.9-2.4 [facility] Serum or plasma calcium criss urement (mass/volume)Ordered By: Dr. Serra on 05-22-2022 Calcium [Mass/Vol] 9.6 mg/dL 8.5-10.1 [facility] Serum or plasma creatinine m easurement (mass/volume)Ordered By: Dr. Serra on 05-22-2022 Creatinine [Mass/Vol] 0.77 mg/dL 0.55-1.02 [facility] Comment on above: The validity of the calculated GFR & GFRAA in patients over 70 years has not been determined. Clinical correlation is essential. Serum or plasma urea nitroge n measurement (mass/volume)Ordered By: Dr. Serra on 05-22-2022 Urea nitrogen [Mass/Vol] 17 mg/dL 7-18 [facility] Thin prep Papanicolaou smear with manual screeningOrdered By: Dr. Serra on 05-22-2022 Thin prep Papanicolaou smear with manual screening 13 U/L 15-37 [facility] Thin prep Papanicolaou smear with manual screening 10 5-15 [facility] ALLIED HEALTHon 05-18-2022 ALLIED HEALTH HNO ID: [id number] Author: RT Malachi(R) Service: ? Author Type: [...] Malachi(R) May 18, 2022 5:36 PM [facility] ANES POSTPROC EVALon 023 ANES POSTPROC EVAL HNO ID: [id number] Author: Tiffani Mayen MD Service: Anesthesiology Author Type: Anesthesiologist Type: Anesthesia Postprocedure Evaluation Filed: 05/18/2022 6:12 PM Note Text: POST ANESTHESIA EVALUATION NOTE : 1935 Procedure Summary Date: 05/18/22 Room / Location: [place] OR [address] [place] [address] OR Anesthesia Start: 1518 Anesthesia Stop: 1726 Procedures: REMOVAL HARDWARE LEFT [...] May 18, 2022 TIME: 6:11 PM CSN: [id number] [facility] ANES PRE-OPon 05-18-2022 ANES PRE-OP HNO ID: [id number] Author: Tiffani Mayen MD Service: Anesthesiology Author Type: Anesthesiologist Type: Anesthesia Preprocedure Evaluation Filed: 05/18/2022 2:45 PM Note Text: ANESTHESIOLOGY DAY OF SURGERY NOTE : 1935 Procedure Information Date/Time: 05/18/22 1500 Procedures: REMOVAL HARDWARE LEFT ANKLE (Left: Ankle) DEBRIDEMENT OSTEOMYELITIS LEFT FIBULA (Left: Fibula) INSERTION ANTIBIOTIC CEMENT LEFT ANKLE (Left: Ankle) Location: [place] OR / [place] OR Surgeons: Marcus Mello DPM Estimated body mass index is 21.47 kg/m? as calculated from the following: Height as of 05/05/22: 165.1 cm (5' 5). Weight as of 05/05/22: 58.5 kg (129 lb). Most recent hematocrit and potassium results: Hematocrit 40.8 04/01/2022 Potassium 3.8 04/22/2017 Relevant Problems No relevant active problems 86F with RA and h/o [place] 2019 with stent placement I - PHYSICAL [...] and consent discussed: yes. Patient / Responsible Republican agrees to proceed: yes Patient / Surrogate [...] Pulse 82 05/18/22 1402 Resp 18 05/18/22 140 Temp 36.2 ?C (97.2 ?F) 05/18/22 140 SpO2 98 % 05/18/22 140 Facility-Administered Medications as of 05/18/2022 Medication Dose [...] tablet by mouth once daily. - Vitamin G23-Aioqdjc B1 5.5-12.5 mg-mcg/5 mL Liqd Take 1 tablet by mouth once daily. - CALCIUM CARBONATE (CALCIUM 600 ORAL) Take by mouth twice daily. - Albright-3 Fatty Acids-Vitamin E 1,000 mg cap Take [...] May 18, 2022 TIME: 2:45 PM CSN: [id number] [facility] BRIEF OP NOTon 05-18-2022 BRIEF OP NOT HNO ID: [id number] Author: Marcus Mello DPM Service: Podiatry Author Type: Physician Type: Brief Op Note Filed: 05/18/2022 4:55 PM Note Text: BRIEF OPERATIVE / PROCEDURE NOTE LOG ID: [id number] Surgery/Procedure Date: 05/18/2022 Incision/Procedure Start Time: 3:40 PM Incision Close/Procedure End Time: Surgeon(s)/Proceduralist(s) and Pipeline Systems Operator(s): Surgeon(s) and Role: * Marcus Mello DPM [...] 2022 TIME: 2:58 PM PAGER/CONTACT #: [facility] Bacteria Spec Anaerobe Culto n 05-18-2022 Bacteria identified Anaer cx Nom (Unsp spec) CULTURE, ANAEROBE: Few mixed anaerobic jimena. No Clostridium perfringens isolated. ORGANISM ID: 1 Few Bacteroides fragilis Bacteroides spp. are intrinsically resistant to ampicillin, penicillin, and aminoglycosides. [facility] Comment on above: Performed By: #### 6 35-3, 20342-5, 6462-6 #### [facility] CLIA [id number] [address] [place] [address] [place] [facility] Bacteria Wnd Culton 05-18-19 23 Bacteria identified Cx Nom (Wound) ORGANISM ID: 1 Few Streptococcus anginosus ORGANISM ID: 2 Rare Corynebacterium propinquum No further workup. GRAM STAIN: No organisms seen Rare Polymorphonuclear leukocytes Abnormal [facility] Comment on above: Performed By: #### 6 35-3, [id number], 6462-6 #### [facility] CLIA [id number] [address] Microorganism Spec Culton Microorganism identified Cx Nom (Unsp spec) CULTURE, FUNGAL: No Fungus isolated after 28 days FUNGAL SMEAR: No fungus seen [facility] Comment on above: Performed By: #### 2 4321-2 #### [facility] CLIA [id number] [address] Microorganism identified Cx Nom (Unsp spec) CULTURE, AFB: No Acid Fast Bacilli isolated after 42 days AFB STAIN: No acid fast bacilli seen by flurochrome stain [facility] Comment on above: Performed By: #### 2 4321-2 #### [facility] CLIA [id number] [address] XR ANKLE 2V AP/LAT LTon 05-03 [...] Dose Area Product (DAP): Fluoro time: min:sec Clamp Operator: PSCScot Transcribe Date/Time: May 20 2022 8:56A Dictated by : CIRO RAMEY MD This examination was interpreted and the report reviewed and electronically signed by: CIRO RAMEY MD on May 20 2022 8:58AM EST [id number] [facility] XR ANKLE 3V AP/LAT/OBL LTon [...] involving the distal left fibula as noted. Clamp Operator: YADIRA Transcribe Date/Time: May 19 2022 7:33A Dictated by : HUSEYIN TSAI MD This examination was interpreted and the report reviewed and electronically signed by: HUSEYIN TSAI MD on May 19 2022 7:35AM EST [id number] [facility] HISTORY PHYSICALon HISTORY PHYSICAL HNO ID: [id number] Author: Lupis Hunter APRN.BUTTONER Service: ? Author Type: Nurse Practitioner Type: [...] Negative for: dysuria, hematuria and renal failure. 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 [facility] Absolute lymphocyte countOrd ered By: Dr. Jonas on 04-16-2022 Lymphocytes Auto (Unsp spec) [#/Vol] 1.37 10*3/uL 0.83-4.51 [facility] Basophil percentageOrdered B y: Dr. Jonas on 04-16-2022 Basophils/100 WBC (Bld) 0.4 % 0-1 [facility] Bilirubin [Mass/Vol] 0.60 mg/dL 0.20-1.00 [facility] Comment on above: For patients on eltr ombopag therapy, use of Dimension [place] TBIL is not recommended. Chloride [Moles/Vol] 106 mmol/L 98-107 [facility] Eosinophils/100 WBC (Bld) 0.2 % 0-5 [facility] Glucose [Mass/Vol] 122 mg/dL 74-106 [facility] Comment on above: Fasting Glucose resu lt from 100 to 125 mg/dL suggests IMPAIRED HOMEOSTASIS per A.D.A. criteria. Neutrophils (Bld) [#/Vol] 3.1 10*3/uL 2.0-7.7 [facility] Neutrophils/100 WBC (Bld) 61.7 % 47-70 [facility] Potassium [Moles/Vol] 3.9 mmol/L 3.5-5.1 [facility] Protein [Mass/Vol] 6.7 g/dL 6.4-8.2 [facility] Sodium [Moles/Vol] 139 mmol/L 136-145 [facility] WBC (Bld) [#/Vol] 5.0 10*3/uL 4.4-11.0 [facility] Blood erythrocytes count (nu mber/volume)Ordered By: Dr. Jonas on 04-16-2022 RBC (Bld) [#/Vol] 4.08 10*6/uL 4.2-5.4 [facility] Blood hemoglobin measurement (mass/volume)Ordered By: Dr. Jonas on 04-16-2022 Hemoglobin (Bld) [Mass/Vol] 13.0 g/dL 12.0-15.0 [facility] Blood lymphocytes/100 leukoc ytesOrdered By: Dr. Jonas on 04-16-2022 Lymphocytes/100 WBC (Bld) 27.6 % 19-41 [facility] Blood monocytes/100 leukocyt esOrdered By: Dr. Jonas on 04-16-2022 Monocytes/100 WBC (Bld) 9.9 % 0-10 [facility] Blood platelet mean volumeOr dered By: Dr. Jonas on 04-16-2022 Platelet mean volume (Bld) [Entitic vol] 10.3 fL 6.2-12.0 [facility] Determination of erythrocyte mean corpuscular volume (MCV)Ordered By: Dr. Jonas on 04-16-2022 MCV (RBC) [Entitic vol] 95.3 fL 81-99 [facility] Hematocrit Auto (Bld) [Volum e fraction]Ordered By: Dr. Jonas on 04-16-2022 Hematocrit (Bld) [Volume fraction] 38.9 % 37-47 [facility] Laboratory - Chemistry and C hemistry - challengeOrdered By: Dr. Jonas on 04-16-2022 ALP [Catalytic activity/Vol] 50 U/L 45-117 [facility] ALT [Catalytic activity/Vol] 19 U/L 13-56 [facility] CO2 [Moles/Vol] 28.0 mmol/L 21.0-32.0 [facility] Globulin (S) [Mass/Vol] 3.3 g/dL 2.2-4.2 [facility] Urea nitrogen/Creatinine [Mass ratio] 21.3 mg/mg 10-20 [facility] Laboratory - Hematology and Cell countsOrdered By: Dr. Jonas on 04-16-2022 Erythrocyte distribution width (RBC) [Entitic vol] 47.8 fL 35.1-43.9 [facility] Erythrocyte distribution width (RBC) [Ratio] 13.6 % 11.6-14.6 [facility] Immature granulocytes/100 WBC (Bld) 0.200 % 0.0-0.9 [facility] Comment on above: IG% - Immature Granu locytes (promyelocytes, myelocytes and metamyelocytes) > 1% indicates that a LEFT SHIFT is Present. MCH (RBC) [Entitic mass] 31.9 pg 27.0-32.0 [facility] Nucleated RBC/100 WBC (Bld) [Ratio] 0 % 0-5 [facility] MCHC Auto (RBC) [Mass/Vol]Or dered By: Dr. Jonas on 04-16-2022 MCHC (RBC) [Mass/Vol] 33.4 g/dL 32-36 [facility] No Panel InformationOrdered By: Dr. Jonas on 04-16-2022 Estimated Creatinine Clearance Calc 37.01 ml/min [facility] Estimated GFR (MDRD) Amer 102 mL/min >60 [facility] Comment on above: GFR Calc Estimated GFR (MDRD) Non-Af Amer 84 mL/min >60 [facility] Comment on above: Non- GFR Calc Platelets bldOrdered By: Dr. Jonas on 04-16-2022 Platelets (Bld) [#/Vol] 174 10*3/uL 150-450 [facility] Serum or plasma albumin criss urement (mass/volume)Ordered By: Dr. Jonas on 04-16-2022 Albumin [Mass/Vol] 3.4 g/dL 3.2-5.0 [facility] Serum or plasma albumin/glob ulin mass ratioOrdered By: Dr. Jonas on 04-16-2022 Albumin/Globulin [Mass ratio] 1.0 {ratio} 0.9-2.4 [facility] Serum or plasma calcium criss urement (mass/volume)Ordered By: Dr. Jonas on 04-16-2022 Calcium [Mass/Vol] 8.6 mg/dL 8.5-10.1 [facility] Serum or plasma creatinine m easurement (mass/volume)Ordered By: Dr. Jonas on 04-16-2022 Creatinine [Mass/Vol] 0.70 mg/dL 0.55-1.02 [facility] Comment on above: The validity of the calculated GFR & GFRAA in patients over 70 years has not been determined. Clinical correlation is essential. Serum or plasma urea nitroge n measurement (mass/volume)Ordered By: Dr. Jonas on 04-16-2022 Urea nitrogen [Mass/Vol] 15 mg/dL 7-18 [facility] Thin prep Papanicolaou smear with manual screeningOrdered By: Dr. Jonas on 04-16-2022 Thin prep Papanicolaou smear with manual screening 14 U/L 15-37 [facility] Thin prep Papanicolaou smear with manual screening 5 5-15 [facility] Thin prep Papanicolaou smear with manual screening 164 U/L 84-246 [facility] CNCOon 04-10-2022 CNCO Letter Text Normal [facility] CNOVon 04-09-2022 CNOV Office Visit (AGHWW1 ) ROBERTO FERGUSON ([id number]) 1935 F Date Time Provider Department 04/09/22 11:30 AM MARCUS MELLO AGHWW1 During your visit today, [...] treated at a wound care clinic in [place]. Hx of RA on immunosuppressive therapy. She [...] daily. MULTI-VITAMIN ORAL Take by mouth. Vitamin X47-Vykocsx B1 5.5-12.5 mg-mcg/5 mL Liqd Take by mouth. CALCIUM CARBONATE (CALCIUM 600 ORAL) Take by mouth twice daily. Albright-3 Fatty Acids-Vitamin E 1,000 mg cap Take [...] distal fi (more content not included)... Normal [facility] CBC W Auto Differential pane l (Bld)on 04-01-2022 Basophils (Bld) [#/Vol] 10*3/uL Normal <0.[address] [facility] Comment on above: Order Comment: Speci men Type: BLOOD SPECIMEN Ordering Facility: [facility] Address: [address] [place] [address] Performed By: #### 5 7021-8 #### [facility] CLIA [id number] [address] [place] [address] [place] Basophils/100 WBC (Bld) 0.4 % Normal [facility] Comment on above: Order Comment: Speci men Type: BLOOD SPECIMEN Ordering Facility: [facility] Address: [address] [place] [address] Performed By: #### 5 7021-8 #### [facility] CLIA [id number] [address] [place] [address] [place] Differential cell count method Nom (Bld) Auto Normal [facility] Comment on above: Order Comment: Speci men Type: BLOOD SPECIMEN Ordering Facility: [facility] Address: [address] [place] [address] Performed By: #### 5 7021-8 #### [facility] CLIA [id number] [address] [place] [address] [place] Eosinophils (Bld) [#/Vol] 0.04 10*3/uL Normal <0.[address] [facility] Comment on above: Order Comment: Speci men Type: BLOOD SPECIMEN Ordering Facility: [facility] Address: [address] [address] Performed By: #### 5 7021-8 #### [facility] CLIA [id number] [address] [place] [address] [place] Eosinophils/100 WBC (Bld) 0.7 % Normal [facility] Comment on above: Order Comment: Speci men Type: BLOOD SPECIMEN Ordering Facility: [facility] Address: [address] [address] Performed By: #### 5 7021-8 #### [facility] CLIA [id number] [address] [place] [address] [place] Erythrocyte distribution width (RBC) [Ratio] 13.6 % Normal 11.5-15.[address] [facility] Comment on above: Order Comment: Speci men Type: BLOOD SPECIMEN Ordering Facility: [facility] Address: [address] [address] Performed By: #### 5 7021-8 #### [facility] CLIA [id number] [address] [place] [address] [place] Hematocrit (Bld) [Volume fraction] 40.8 % Normal 36.0-46.[address] [facility] Comment on above: Order Comment: Speci men Type: BLOOD SPECIMEN Ordering Facility: [facility] Address: [address] Performed By: #### 5 7021-8 #### [facility] CLIA [id number] [address] [place] [address] [place] Hemoglobin (Bld) [Mass/Vol] 13.5 g/dL Normal 11.5-15.[address] [facility] Comment on above: Order Comment: Speci men Type: BLOOD SPECIMEN Ordering Facility: [facility] Address: [address] [address] Performed By: #### 5 7021-8 #### [facility] CLIA [id number] [address] [place] [address] [place] Immature granulocytes (Bld) [#/Vol] 10*3/uL Normal <0.[address] [facility] Comment on above: Order Comment: Speci men Type: BLOOD SPECIMEN Ordering Facility: [facility] Address: [address] [place] [address] Performed By: #### 5 7021-8 #### [facility] CLIA [id number] [address] [place] [address] [place] Immature granulocytes/100 WBC (Bld) 0.4 % Normal [facility] Comment on above: Order Comment: Speci men Type: BLOOD SPECIMEN Ordering Facility: [facility] Address: [address] [place] [address] Performed By: #### 5 7021-8 #### [facility] CLIA [id number] [address] [place] [address] [place] Lymphocytes (Bld) [#/Vol] 1.44 10*3/uL Normal 1.00-4.[address] [facility] Comment on above: Order Comment: Speci men Type: BLOOD SPECIMEN Ordering Facility: [facility] Address: [address] [place] [address] Performed By: #### 5 7021-8 #### [facility] CLIA [id number] [address] [place] [address] [place] Lymphocytes/100 WBC (Bld) 26.5 % Normal [facility] Comment on above: Order Comment: Speci men Type: BLOOD SPECIMEN Ordering Facility: [facility] Address: [address] [place] [address] Performed By: #### 5 7021-8 #### [facility] CLIA [id number] [address] [place] [address] [place] MCH (RBC) [Entitic mass] 31.0 pg Normal 26.0-34.[address] [facility] Comment on above: Order Comment: Speci men Type: BLOOD SPECIMEN Ordering Facility: [facility] Address: [address] [address] Performed By: #### 5 7021-8 #### [facility] CLIA [id number] [address] [place] [address] [place] MCHC (RBC) [Mass/Vol] 33.1 g/dL Normal 30.5-36.0 [facility] Comment on above: Order Comment: Speci men Type: BLOOD SPECIMEN Ordering Facility: [facility] Address: [address] [place] [address] Performed By: #### 5 7021-8 #### [facility] CLIA [id number] [address] [place] [address] [place] MCV (RBC) [Entitic vol] 93.6 fL Normal 80.0-100.[address] [facility] Comment on above: Order Comment: Speci men Type: BLOOD SPECIMEN Ordering Facility: [facility] Address: [address] [place], [place] [address] Performed By: #### 5 7021-8 #### [facility] CLIA [id number] [address] [place] [address] [place] Monocytes (Bld) [#/Vol] 0.56 10*3/uL Normal <0.[address] [facility] Comment on above: Order Comment: Speci men Type: BLOOD SPECIMEN Ordering Facility: [facility] Address: [address] Performed By: #### 5 7021-8 #### [facility] CLIA [id number] [address] [place] [address] [place] Monocytes/100 WBC (Bld) 10.3 % Normal [facility] Comment on above: Order Comment: Speci men Type: BLOOD SPECIMEN Ordering Facility: [facility] Address: [address] [place] [address] Performed By: #### 5 7021-8 #### [facility] CLIA [id number] [address] [place] [address] [place] Neutrophils (Bld) [#/Vol] 3.36 10*3/uL Normal 1.45-7.[address] [facility] Comment on above: Order Comment: Speci men Type: BLOOD SPECIMEN Ordering Facility: [facility] Address: [address] Performed By: #### 5 7021-8 #### [facility] CLIA [id number] [address] [place] [address] [place] Neutrophils/100 WBC (Bld) 61.7 % Normal [facility] Comment on above: Order Comment: Speci men Type: BLOOD SPECIMEN Ordering Facility: [facility] Address: [address] Performed By: #### 5 7021-8 #### [facility] CLIA [id number] [address] [place] [address] [place] Nucleated RBC (Bld) [#/Vol] 10*3/uL Normal <0.[address] [facility] Comment on above: Order Comment: Speci men Type: BLOOD SPECIMEN Ordering Facility: [facility] Address: [address] Performed By: #### 5 7021-8 #### [facility] CLIA [id number] [address] [place] [address] [place] Nucleated RBC/100 WBC (Bld) [Ratio] 0.0 /100 WBC Normal [facility] Comment on above: Order Comment: Speci men Type: BLOOD SPECIMEN Ordering Facility: [facility] Address: [address] Performed By: #### 5 7021-8 #### [facility] CLIA [id number] [address] [place] [address] [place] Platelet mean volume (Bld) [Entitic vol] 10.7 fL Normal 9.0-12.[address] [facility] Comment on above: Order Comment: Speci men Type: BLOOD SPECIMEN Ordering Facility: [facility] Address: [address] [place] [address] Performed By: #### 5 7021-8 #### [facility] CLIA [id number] [address] [place] [address] [place] Platelets (Bld) [#/Vol] 192 10*3/uL Normal 150-[address] [facility] Comment on above: Order Comment: Speci men Type: BLOOD SPECIMEN Ordering Facility: [facility] Address: [address] [place] [address] Performed By: #### 5 7021-8 #### [facility] CLIA [id number] [address] [place] [address] [place] RBC (Bld) [#/Vol] 4.36 10*6/uL Normal 3.90-5.20 [facility] Comment on above: Order Comment: Speci men Type: BLOOD SPECIMEN Ordering Facility: [facility] Address: [address] [place] [address] Performed By: #### 5 7021-8 #### [facility] CLIA [id number] [address] [place] [address] [place] WBC (Bld) [#/Vol] 5.44 10*3/uL Normal 3.70-11.00 [facility] Comment on above: Order Comment: Speci men Type: BLOOD SPECIMEN Ordering Facility: [facility] Address: [address] [place] [address] Performed By: #### 5 7021-8 #### [facility] CLIA [id number] [address] [place] [address] [place] CRP SerPl-mCncon 04-01-2022 CRP [Mass/Vol] 0.4 mg/dL Normal <0.[address] [facility] Comment on above: Order Comment: Speci men Type: BLOOD SPECIMEN Ordering Facility: [facility] Address: [address] [address] Performed By: #### 1 988-5 #### [facility] CLIA [id number] [address] [place] [address] ESR Westergren method (Bld) [Velocity]on 04-01-2022 ESR (Bld) [Velocity] 8 mm/h Normal 0-20 [facility] Comment on above: Order Comment: Speci men Type: BLOOD SPECIMEN Ordering Facility: [facility] Address: [address] [address] Performed By: #### 4 537-7 #### [facility] CLIA [id number] [address] [place] [address] OF [facility] PVR ANK/FALL/TOE [facility] on 04-01-2022 PVR ANK/FALL/TOE [facility] Non-Invasive Vascular Laboratory [facility] Lower Extremity Arterial Physiology Study Bilateral/Complete [...] ankle: Normal at rest. Technologist: Hilda Cano T, [facility] Ordering physician: MARCUS MELLO Interpreting physician: Linda Rose MD, MICHAEL Final CC [facility] Image : [id number] oDynamicsSISUID See Link below for Image Normal [facility] CNOVon 03-18-2022 CNOV Office Visit (AGPOB1 ) ROBERTO FERGUSON ([id number]) 1935 F Date Time Provider Department 03/18/22 10:00 AM MARCUS MELLO During your visit today, we recorded the [...] She subsequently started seeing another provider in [place] who recommended removal of hardware. She underwent [...] treated at a wound care clinic in [place]. Hx of RA on immunosuppressive therapy. Denies [...] WEEKS. MULTI-VITAMIN ORAL Take by mouth. Vitamin J41-Nkeyviq B1 5.5-12.5 mg-mcg/5 mL Liqd Take by mouth. CALCIUM CARBONATE (CALCIUM 600 ORAL) Take by mouth twice daily. Albright-3 Fatty Acids-Vitamin E 1,000 mg cap Take [...] good attention (more content not included)... Normal [facility] CNPNon 03-18-2022 CNPN Telephone (AGPOB3) ROBERTO FERGUSON ([id number]) 1935 F Date Time Provider Department 03/18/22 MARCUS MELLO AGPOB3 During your visit today, we recorded the following information about you: Tiffani Pulliam 03/18/2022 4:38 PM Signed Patient called to schedule PVR US. The department at the [facility] advises that the patient have the test performed by vascular lab. Please resubmit proper order to reflect appropriate test needed. Please contact [place] at [phone] to update current scheduled appointment if necessary. [...] MULTI-VITAMIN ORAL Take by mouth. - Vitamin X54-Sjvolpg B1 5.5-12.5 mg-mcg/5 mL Liqd Take by mouth. - CALCIUM CARBONATE (CALCIUM 600 ORAL) Take by mouth twice daily. - Albright-3 Fatty Acids-Vitamin E 1,000 mg cap Take [...] Encounter Status:Closed by TIFFANI PULLIAM on 03/18/22 [facility] Qualitative QuantiFERON-TB g old in tube testOrdered By: Dr. Serra on 02-24-2022 M. tuberculosis tuberculin stim IFN-g Ql (Bld) 0.23 IU/mL . [facility] Thin prep Papanicolaou smear with manual screeningOrdered By: Dr. Serra on 02-24-2022 Thin prep Papanicolaou smear with manual screening Comment . [facility] Comment on above: QuantiFERON-TB Gold Plus is [...] smear with manual screening 0.07 IU/mL . [facility] Thin prep Papanicolaou smear with manual screening 0.06 IU/mL . [facility] Thin prep Papanicolaou smear with manual screening 9.76 IU/mL . [facility] Thin prep Papanicolaou smear with manual screening Negative Negative [facility] Comment on above: No response to M [...] the productionof interferon gamma. Chemiluminescence immunoassaymethodologyPerformed at: [facility] [address] [id number] Director: Maxx Yi PhD, Phone: [phone] Absolute lymphocyte countOrd ered By: Dr. Hall on 02-09-2022 Lymphocytes Auto (Unsp spec) [#/Vol] 1.01 10*3/uL 0.83-4.51 [facility] Basophil percentageOrdered B y: Dr. Hall on 02-09-2022 Basophils/100 WBC (Bld) 0.5 % 0-1 [facility] Bilirubin [Mass/Vol] 0.50 mg/dL 0.20-1.00 [facility] Comment on above: For patients on eltr ombopag therapy, use of Dimension [place] TBIL is not recommended. Chloride [Moles/Vol] 107 mmol/L 98-107 [facility] Eosinophils/100 WBC (Bld) 0.7 % 0-5 [facility] Glucose [Mass/Vol] 111 mg/dL 74-106 [facility] Comment on above: Fasting Glucose resu lt from 100 to 125 mg/dL suggests IMPAIRED HOMEOSTASIS per A.D.A. criteria. Neutrophils (Bld) [#/Vol] 2.6 10*3/uL 2.0-7.7 [facility] Neutrophils/100 WBC (Bld) 61.1 % 47-70 [facility] Potassium [Moles/Vol] 4.3 mmol/L 3.5-5.1 [facility] Protein [Mass/Vol] 7.0 g/dL 6.4-8.2 [facility] Sodium [Moles/Vol] 140 mmol/L 136-145 [facility] WBC (Bld) [#/Vol] 4.3 10*3/uL 4.4-11.0 [facility] Blood erythrocytes count (nu mber/volume)Ordered By: Dr. Hall on 02-09-2022 RBC (Bld) [#/Vol] 4.49 10*6/uL 4.2-5.4 [facility] Blood hemoglobin measurement (mass/volume)Ordered By: Dr. Hall on 02-09-2022 Hemoglobin (Bld) [Mass/Vol] 13.9 g/dL 12.0-15.0 [facility] Blood lymphocytes/100 leukoc ytesOrdered By: Dr. Hall on 02-09-2022 Lymphocytes/100 WBC (Bld) 23.7 % 19-41 [facility] Blood monocytes/100 leukocyt esOrdered By: Dr. Hall on 02-09-2022 Monocytes/100 WBC (Bld) 13.8 % 0-10 [facility] Blood platelet mean volumeOr dered By: Dr. Hall on 02-09-2022 Platelet mean volume (Bld) [Entitic vol] 11.2 fL 6.2-12.0 [facility] Determination of erythrocyte mean corpuscular volume (MCV)Ordered By: Dr. Hall on 02-09-2022 MCV (RBC) [Entitic vol] 95.5 fL 81-99 [facility] Hematocrit Auto (Bld) [Volum e fraction]Ordered By: Dr. Hall on 02-09-2022 Hematocrit (Bld) [Volume fraction] 42.9 % 37-47 [facility] Laboratory - Chemistry and C hemistry - challengeOrdered By: Dr. Hall on 02-09-2022 ALP [Catalytic activity/Vol] 51 U/L 45-117 [facility] ALT [Catalytic activity/Vol] 24 U/L 13-56 [facility] CO2 [Moles/Vol] 26.0 mmol/L 21.0-32.0 [facility] Globulin (S) [Mass/Vol] 3.4 g/dL 2.2-4.2 [facility] T4 [Mass/Vol] 9.4 ug/dL 4.8-13.9 [facility] Urea nitrogen/Creatinine [Mass ratio] 22.9 mg/mg 10-20 [facility] Laboratory - Hematology and Cell countsOrdered By: Dr. Hall on 02-09-2022 Erythrocyte distribution width (RBC) [Entitic vol] 46.1 fL 35.1-43.9 [facility] Erythrocyte distribution width (RBC) [Ratio] 13.2 % 11.6-14.6 [facility] Immature granulocytes/100 WBC (Bld) 0.200 % 0.0-0.9 [facility] Comment on above: IG% - Immature Granu locytes (promyelocytes, myelocytes and metamyelocytes) > 1% indicates that a LEFT SHIFT is Present. MCH (RBC) [Entitic mass] 31.0 pg 27.0-32.0 [facility] Nucleated RBC/100 WBC (Bld) [Ratio] 0 % 0-5 [facility] MCHC Auto (RBC) [Mass/Vol]Or dered By: Dr. Hall on 02-09-2022 MCHC (RBC) [Mass/Vol] 32.4 g/dL 32-36 [facility] No Panel InformationOrdered By: Dr. Hall on 02-09-2022 Estimated GFR (MDRD) Amer 95 mL/min >60 [facility] Comment on above: GFR Calc Estimated GFR (MDRD) Non-Af Amer 79 mL/min >60 [facility] Comment on above: Non- GFR Calc Thyroid Stimulating Hormone (TSH) 0.46 uIU/mL 0.358-3.74 [facility] Platelets bldOrdered By: Dr. Hall on 02-09-2022 Platelets (Bld) [#/Vol] 184 10*3/uL 150-450 [facility] Serum or plasma albumin criss urement (mass/volume)Ordered By: Dr. Hall on 02-09-2022 Albumin [Mass/Vol] 3.6 g/dL 3.2-5.0 [facility] Serum or plasma albumin/glob ulin mass ratioOrdered By: Dr. Hall on 02-09-2022 Albumin/Globulin [Mass ratio] 1.1 {ratio} 0.9-2.4 [facility] Serum or plasma calcium criss urement (mass/volume)Ordered By: Dr. Hall on 02-09-2022 Calcium [Mass/Vol] 9.5 mg/dL 8.5-10.1 [facility] Serum or plasma creatinine m easurement (mass/volume)Ordered By: Dr. Hall on 02-09-2022 Creatinine [Mass/Vol] 0.74 mg/dL 0.55-1.02 [facility] Comment on above: The validity of the calculated GFR & GFRAA in patients over 70 years has not been determined. Clinical correlation is essential. Serum or plasma urea nitroge n measurement (mass/volume)Ordered By: Dr. Hall on 02-09-2022 Urea nitrogen [Mass/Vol] 17 mg/dL 7-18 [facility] Thin prep Papanicolaou smear with manual screeningOrdered By: Dr. Hall on 02-09-2022 Thin prep Papanicolaou smear with manual screening 17 U/L 15-37 [facility] Thin prep Papanicolaou smear with manual screening 7 5-15 [facility] Absolute lymphocyte counton 11-20-2021 Lymphocytes Auto (Unsp spec) [#/Vol] 1.38 10*3/uL 0.83-4.51 [facility] Work Phone: Basophil percentageon 2021 Bilirubin [Mass/Vol] 0.70 mg/dL 0.20-1.00 [facility] Work Phone: Comment on above: For patients on eltr ombopag therapy, use of Dimension [place] TBIL is not recommended. Cholesterol [Mass/Vol] 133 mg/dL <200 [facility] Work Phone: Comment on above: <200 mg/dL Desirable 200-240 mg/dL Borderline >240 mg/dL High Risk Protein [Mass/Vol] 6.7 g/dL 6.4-8.2 [facility] Work Phone: Triglyceride [Mass/Vol] 111 mg/dL <199 [facility] Work Phone: [phone] Comment on above: The drugs N-Acetylcy steine and Metamizole may falsely depress this assay.Serum Triglycerides Reference Interval Normal <150 mg/dL Borderline high 150 - 199 mg/dL High 200 - 499 mg/dL Very High > or = 500 mg/dL Basophils/100 WBC (Bld) 0.8 % 0-1 [facility] Work Phone: Chloride [Moles/Vol] 106 mmol/L 98-107 [facility] Work Phone: Eosinophils/100 WBC (Bld) 1.6 % 0-5 [facility] Work Phone: Glucose [Mass/Vol] 107 mg/dL 74-106 [facility] Work Phone: [phone] Comment on above: Fasting Glucose resu lt from 100 to 125 mg/dL suggests IMPAIRED HOMEOSTASIS per A.D.A. criteria. Neutrophils (Bld) [#/Vol] 1.8 10*3/uL 2.0-7.7 [facility] Work Phone: [phone] Neutrophils/100 WBC (Bld) 46.9 % 47-70 [facility] Work Phone: Potassium [Moles/Vol] 3.9 mmol/L 3.5-5.1 [facility] Work Phone: Sodium [Moles/Vol] 138 mmol/L 136-145 [facility] Work Phone: WBC (Bld) [#/Vol] 3.7 10*3/uL 4.4-11.0 [facility] Work Phone: Blood erythrocytes count (nu mber/volume)on 11-20-2021 RBC (Bld) [#/Vol] 4.06 10*6/uL 4.2-5.4 [facility] Work Phone: Blood hemoglobin measurement (mass/volume)on 11-20-2021 Hemoglobin (Bld) [Mass/Vol] 12.9 g/dL 12.0-15.0 [facility] Work Phone: Blood lymphocytes/100 leukoc yteson 11-20-2021 Lymphocytes/100 WBC (Bld) 37.0 % 19-41 [facility] Work Phone: Blood monocytes/100 leukocyt eson 11-20-2021 Monocytes/100 WBC (Bld) 13.7 % 0-10 [facility] Work Phone: Blood platelet mean volumeon 11-20-2021 Platelet mean volume (Bld) [Entitic vol] 10.8 fL 6.2-12.0 [facility] Work Phone: Determination of erythrocyte mean corpuscular volume (MCV)on 11-20-2021 MCV (RBC) [Entitic vol] 95.8 fL 81-99 [facility] Work Phone: Direct bilirubinon Bilirubin.direct [Mass/Vol] 0.16 mg/dL 0.00-0.30 [facility] Work Phone: Hematocrit Auto (Bld) [Volum e fraction]on 11-20-2021 Hematocrit (Bld) [Volume fraction] 38.9 % 37-47 [facility] Work Phone: Laboratory - Chemistry and C hemistry - challengeon 11-20-2021 ALP [Catalytic activity/Vol] 51 U/L 45-117 [facility] Work Phone: ALT [Catalytic activity/Vol] 25 U/L 13-56 [facility] Work Phone: Globulin (S) [Mass/Vol] 3.3 g/dL 2.2-4.2 [facility] Work Phone: CO2 [Moles/Vol] 25.0 mmol/L 21.0-32.0 [facility] Work Phone: Urea nitrogen/Creatinine [Mass ratio] 18.5 mg/mg 10-20 [facility] Work Phone: Laboratory - Hematology and Cell countson 11-20-2021 Erythrocyte distribution width (RBC) [Entitic vol] 50.2 fL 35.1-43.9 [facility] Work Phone: Erythrocyte distribution width (RBC) [Ratio] 14.3 % 11.6-14.6 [facility] Work Phone: Immature granulocytes/100 WBC (Bld) 0.000 % 0.0-0.9 [facility] Work Phone: Comment on above: IG% - Immature Granu locytes (promyelocytes, myelocytes and metamyelocytes) > 1% indicates that a LEFT SHIFT is Present. MCH (RBC) [Entitic mass] 31.8 pg 27.0-32.0 [facility] Work Phone: Nucleated RBC/100 WBC (Bld) [Ratio] 0 % 0-5 [facility] Work Phone: MCHC Auto (RBC) [Mass/Vol]on 11-20-2021 MCHC (RBC) [Mass/Vol] 33.2 g/dL 32-36 [facility] Work Phone: No Panel Informationon 11-20 Estimated GFR (MDRD) Amer 93 mL/min >60 [facility] Work Phone: Comment on above: GFR Calc Estimated GFR (MDRD) Non-Af Amer 77 mL/min >60 [facility] Work Phone: Comment on above: Non- GFR Calc Thyroid Stimulating Hormone (TSH) 5.02 uIU/mL 0.358-3.74 [facility] Work Phone: Platelets bldon 11-20-2021 Platelets (Bld) [#/Vol] 186 10*3/uL 150-450 [facility] Work Phone: Serum or plasma albumin criss urement (mass/volume)on 11-20-2021 Albumin [Mass/Vol] 3.4 g/dL 3.2-5.0 [facility] Work Phone: Serum or plasma albumin/glob ulin mass ratioon 11-20-2021 Albumin/Globulin [Mass ratio] 1.1 {ratio} 0.9-2.4 [facility] Work Phone: Serum or plasma calcium criss urement (mass/volume)on 11-20-2021 Calcium [Mass/Vol] 8.7 mg/dL 8.5-10.1 [facility] Work Phone: Serum or plasma cholesterol in HDL measurement (mass/volume)on 11-20-2021 Cholesterol in HDL [Mass/Vol] 72 mg/dL >40 [facility] Work Phone: Comment on above: The drugs N-Acetylcy steine and Metamizole may falsely depress this assay. Reference Range HDL <40 mg/dL Low HDL Cholesterol HDL >or= 60 mg/dL High HDL Cholesterol Serum or plasma cholesterol in VLDL measurement (mass/volume)on 11-20-2021 Cholesterol in VLDL [Mass/Vol] 22 mg/dL 5-40 [facility] Work Phone: Serum or plasma creatinine m easurement (mass/volume)on 11-20-2021 Creatinine [Mass/Vol] 0.76 mg/dL 0.55-1.02 [facility] Work Phone: Comment on above: The validity of the calculated GFR & GFRAA in patients over 70 years has not been determined. Clinical correlation is essential. Serum or plasma low density lipoprotein (LDL) cholesterol measurement (mass/volume)on 11-20-2021 Cholesterol in LDL [Mass/Vol] 39 mg/dL 0-130 [facility] Work Phone: Serum or plasma urea nitroge n measurement (mass/volume)on 11-20-2021 Urea nitrogen [Mass/Vol] 14 mg/dL 7-18 [facility] Work Phone: Thin prep Papanicolaou smear with manual screeningon 11-20-2021 Thin prep Papanicolaou smear with manual screening 19 U/L 15-37 [facility] Work Phone: Thin prep Papanicolaou smear with manual screening 7 5-15 [facility] Work Phone: Absolute lymphocyte counton 08-20-2021 Lymphocytes Auto (Unsp spec) [#/Vol] 1.06 10*3/uL 0.83-4.51 [facility] Work Phone: Basophil percentageon 2021 Basophils/100 WBC (Bld) 0.5 % 0-1 [facility] Work Phone: Bilirubin [Mass/Vol] 0.60 mg/dL 0.20-1.00 [facility] Work Phone: [phone] Comment on above: For patients on eltr ombopag therapy, use of Dimension [place] TBIL is not recommended. Chloride [Moles/Vol] 107 mmol/L 98-107 [facility] Work Phone: Eosinophils/100 WBC (Bld) 1.2 % 0-5 [facility] Work Phone: Glucose [Mass/Vol] 113 mg/dL 74-106 [facility] Work Phone: [phone] Comment on above: Fasting Glucose resu lt from 100 to 125 mg/dL suggests IMPAIRED HOMEOSTASIS per A.D.A. criteria. Neutrophils (Bld) [#/Vol] 2.6 10*3/uL 2.0-7.7 [facility] Work Phone: Neutrophils/100 WBC (Bld) 62.1 % 47-70 [facility] Work Phone: Potassium [Moles/Vol] 4.7 mmol/L 3.5-5.1 [facility] Work Phone: Protein [Mass/Vol] 6.6 g/dL 6.4-8.2 [facility] Work Phone: Sodium [Moles/Vol] 140 mmol/L 136-145 [facility] Work Phone: WBC (Bld) [#/Vol] 4.2 10*3/uL 4.4-11.0 [facility] Work Phone: Blood erythrocytes count (nu mber/volume)on 08-20-2021 RBC (Bld) [#/Vol] 3.91 10*6/uL 4.2-5.4 [facility] Work Phone: Blood hemoglobin measurement (mass/volume)on 08-20-2021 Hemoglobin (Bld) [Mass/Vol] 12.5 g/dL 12.0-15.0 [facility] Work Phone: Blood lymphocytes/100 leukoc yteson 08-20-2021 Lymphocytes/100 WBC (Bld) 25.1 % 19-41 [facility] Work Phone: Blood monocytes/100 leukocyt eson 08-20-2021 Monocytes/100 WBC (Bld) 10.9 % 0-10 [facility] Work Phone: Blood platelet mean volumeon 08-20-2021 Platelet mean volume (Bld) [Entitic vol] 10.7 fL 6.2-12.0 [facility] Work Phone: [phone] Determination of erythrocyte mean corpuscular volume (MCV)on 08-20-2021 MCV (RBC) [Entitic vol] 95.7 fL 81-99 [facility] Work Phone: [phone] Hematocrit Auto (Bld) [Volum e fraction]on 08-20-2021 Hematocrit (Bld) [Volume fraction] 37.4 % 37-47 [facility] Work Phone: [phone] Laboratory - Chemistry and C hemistry - challengeon 08-20-2021 ALP [Catalytic activity/Vol] 49 U/L 45-117 [facility] Work Phone: ALT [Catalytic activity/Vol] 20 U/L 13-56 [facility] Work Phone: [phone] CO2 [Moles/Vol] 26.0 mmol/L 21.0-32.0 [facility] Work Phone: [phone] Globulin (S) [Mass/Vol] 3.2 g/dL 2.2-4.2 [facility] Work Phone: [phone] Urea nitrogen/Creatinine [Mass ratio] 21.6 mg/mg 10-20 [facility] Work Phone: [phone] Laboratory - Hematology and Cell countson 08-20-2021 Erythrocyte distribution width (RBC) [Entitic vol] 47.2 fL 35.1-43.9 [facility] Work Phone: Erythrocyte distribution width (RBC) [Ratio] 13.4 % 11.6-14.6 [facility] Work Phone: Immature granulocytes/100 WBC (Bld) 0.200 % 0.0-0.9 [facility] Work Phone: Comment on above: IG% - Immature Granu locytes (promyelocytes, myelocytes and metamyelocytes) > 1% indicates that a LEFT SHIFT is Present. MCH (RBC) [Entitic mass] 32.0 pg 27.0-32.0 [facility] Work Phone: Nucleated RBC/100 WBC (Bld) [Ratio] 0 % 0-5 [facility] Work Phone: MCHC Auto (RBC) [Mass/Vol]on 08-20-2021 MCHC (RBC) [Mass/Vol] 33.4 g/dL 32-36 [facility] Work Phone: No Panel Informationon 08-20 Estimated Creatinine Clearance Calc 45.40 ml/min [facility] Work Phone: Estimated GFR (MDRD) Amer 84 mL/min >60 [facility] Work Phone: Comment on above: GFR Calc Estimated GFR (MDRD) Non-Af Amer 69 mL/min >60 [facility] Work Phone: Comment on above: Non- GFR Calc Platelets bldon 08-20-2021 Platelets (Bld) [#/Vol] 179 10*3/uL 150-450 [facility] Work Phone: Serum or plasma albumin criss urement (mass/volume)on 08-20-2021 Albumin [Mass/Vol] 3.4 g/dL 3.2-5.0 [facility] Work Phone: Serum or plasma albumin/glob ulin mass ratioon 08-20-2021 Albumin/Globulin [Mass ratio] 1.1 {ratio} 0.9-2.4 [facility] Work Phone: Serum or plasma calcium criss urement (mass/volume)on 08-20-2021 Calcium [Mass/Vol] 8.6 mg/dL 8.5-10.1 [facility] Work Phone: Serum or plasma creatinine m easurement (mass/volume)on 08-20-2021 Creatinine [Mass/Vol] 0.83 mg/dL 0.55-1.02 [facility] Work Phone: Comment on above: The validity of the calculated GFR & GFRAA in patients over 70 years has not been determined. Clinical correlation is essential. Serum or plasma urea nitroge n measurement (mass/volume)on 08-20-2021 Urea nitrogen [Mass/Vol] 18 mg/dL 7-18 [facility] Work Phone: Thin prep Papanicolaou smear with manual screeningon 08-20-2021 Thin prep Papanicolaou smear with manual screening 17 U/L 15-37 [facility] Work Phone: Thin prep Papanicolaou smear with manual screening 7 5-15 [facility] Work Phone: Absolute lymphocyte counton 05-28-2021 Lymphocytes Auto (Unsp spec) [#/Vol] 1.04 10*3/uL 0.83-4.51 [facility] Work Phone: Basophil percentageon 2021 Basophils/100 WBC (Bld) 0.6 % 0-1 [facility] Work Phone: Bilirubin [Mass/Vol] 0.40 mg/dL 0.20-1.00 [facility] Work Phone: Comment on above: For patients on eltr ombopag therapy, use of Dimension [place] TBIL is not recommended. Chloride [Moles/Vol] 107 mmol/L 98-107 [facility] Work Phone: Eosinophils/100 WBC (Bld) 1.1 % 0-5 [facility] Work Phone: Glucose [Mass/Vol] 99 mg/dL 74-106 [facility] Work Phone: Neutrophils (Bld) [#/Vol] 2.1 10*3/uL 2.0-7.7 [facility] Work Phone: Neutrophils/100 WBC (Bld) 58.0 % 47-70 [facility] Work Phone: Potassium [Moles/Vol] 4.2 mmol/L 3.5-5.1 [facility] Work [facility]: Protein [Mass/Vol] 6.6 g/dL 6.4-8.2 [facility]: Sodium [Moles/Vol] 139 mmol/L 136-145 [facility] Work Phone: WBC (Bld) [#/Vol] 3.6 10*3/uL 4.4-11.0 [facility] Work Phone: Blood erythrocytes count (nu mber/volume)on 05-28-2021 RBC (Bld) [#/Vol] 4.14 10*6/uL 4.2-5.4 [facility] Work Phone: Blood hemoglobin measurement (mass/volume)on 05-28-2021 Hemoglobin (Bld) [Mass/Vol] 12.8 g/dL 12.0-15.0 [facility] Work Phone: Blood lymphocytes/100 leukoc yteson 05-28-2021 Lymphocytes/100 WBC (Bld) 28.7 % 19-41 [facility] Work Phone: Blood monocytes/100 leukocyt eson 05-28-2021 Monocytes/100 WBC (Bld) 11.3 % 0-10 [facility] Work Phone: Blood platelet mean volumeon 05-28-2021 Platelet mean volume (Bld) [Entitic vol] 10.4 fL 6.2-12.0 [facility] Work Phone: [phone] Determination of erythrocyte mean corpuscular volume (MCV)on 05-28-2021 MCV (RBC) [Entitic vol] 94.2 fL 81-99 [facility] Work Phone: Hematocrit Auto (Bld) [Volum e fraction]on 05-28-2021 Hematocrit (Bld) [Volume fraction] 39.0 % 37-47 [facility] Work Phone: [phone] Laboratory - Chemistry and C hemistry - challengeon 05-28-2021 ALP [Catalytic activity/Vol] 53 U/L 45-117 [facility] Work Phone: ALT [Catalytic activity/Vol] 18 U/L 13-56 [facility] Work Phone: CO2 [Moles/Vol] 27.0 mmol/L 21.0-32.0 [facility] Work Phone: [phone] Globulin (S) [Mass/Vol] 3.3 g/dL 2.2-4.2 [facility] Work Phone: [phone] Urea nitrogen/Creatinine [Mass ratio] 19.8 mg/mg 10-20 [facility] Work Phone: [phone] Laboratory - Hematology and Cell countson 05-28-2021 Erythrocyte distribution width (RBC) [Entitic vol] 47.3 fL 35.1-43.9 [facility] Work Phone: [phone] Erythrocyte distribution width (RBC) [Ratio] 13.7 % 11.6-14.6 [facility] Work Phone: [phone] Immature granulocytes/100 WBC (Bld) 0.300 % 0.0-0.9 [facility] Work Phone: [phone] Comment on above: IG% - Immature Granu locytes (promyelocytes, myelocytes and metamyelocytes) > 1% indicates that a LEFT SHIFT is Present. MCH (RBC) [Entitic mass] 30.9 pg 27.0-32.0 [facility] Work Phone: [phone] Nucleated RBC/100 WBC (Bld) [Ratio] 0 % 0-5 [facility] Work Phone: [phone] MCHC Auto (RBC) [Mass/Vol]on 05-28-2021 MCHC (RBC) [Mass/Vol] 32.8 g/dL 32-36 [facility] Work Phone: No Panel Informationon 05-28 Estimated GFR (MDRD) Amer 93 mL/min >60 [facility] Work Phone: Comment on above: GFR Calc Estimated GFR (MDRD) Non-Af Amer 77 mL/min >60 [facility] Work Phone: Comment on above: Non- GFR Calc Platelets bldon 05-28-2021 Platelets (Bld) [#/Vol] 170 10*3/uL 150-450 [facility] Work Phone: Serum or plasma albumin criss urement (mass/volume)on 05-28-2021 Albumin [Mass/Vol] 3.3 g/dL 3.2-5.0 [facility] Work Phone: Serum or plasma albumin/glob ulin mass ratioon 05-28-2021 Albumin/Globulin [Mass ratio] 1.0 {ratio} 0.9-2.4 [facility] Work Phone: Serum or plasma calcium criss urement (mass/volume)on 05-28-2021 Calcium [Mass/Vol] 8.9 mg/dL 8.5-10.1 [facility] Work Phone: Serum or plasma creatinine m easurement (mass/volume)on 05-28-2021 Creatinine [Mass/Vol] 0.76 mg/dL 0.55-1.02 [facility] Work Phone: Comment on above: The validity of the calculated GFR & GFRAA in patients over 70 years has not been determined. Clinical correlation is essential. Serum or plasma urea nitroge n measurement (mass/volume)on 05-28-2021 Urea nitrogen [Mass/Vol] 15 mg/dL 7-18 [facility] Work Phone: Thin prep Papanicolaou smear with manual screeningon 05-28-2021 Thin prep Papanicolaou smear with manual screening 16 U/L 15-37 [facility] Work Phone: Thin prep Papanicolaou smear with manual screening 5 5-15 [facility] Work Phone: [phone] Absolute lymphocyte counton 04-17-2021 Lymphocytes Auto (Unsp spec) [#/Vol] 1.73 10*3/uL 0.83-4.51 [facility] Work Phone: [phone] Basophil percentageon 2020 Bilirubin [Mass/Vol] 0.40 mg/dL 0.20-1.00 [facility] Work Phone: [phone] Comment on above: For patients on eltr ombopag therapy, use of Dimension [place] TBIL is not recommended. Chloride [Moles/Vol] 105 mmol/L 98-107 [facility] Work Phone: [phone] Eosinophils/100 WBC (Bld) 1.1 % 0-5 [facility] Work Phone: [phone] Glucose [Mass/Vol] 127 mg/dL 74-106 [facility] Work Phone: Comment on above: Fasting Glucose resu lt greater than or equal to 126 mg/dL suggests DIABETES MELLITUS per A.D.A. criteria.Please note revised GLUCOSE reference range effective 2017. Neutrophils (Bld) [#/Vol] 2.4 10*3/uL 2.0-7.7 [facility] Work Phone: [phone] Potassium [Moles/Vol] 3.9 mmol/L 3.5-5.1 [facility] Work Phone: [phone] Protein [Mass/Vol] 7.4 g/dL 6.4-8.2 [facility] Work Phone: [phone] Sodium [Moles/Vol] 139 mmol/L 136-145 [facility] Work Phone: [phone] WBC (Bld) [#/Vol] 4.6 10*3/uL 4.4-11.0 [facility] Work Phone: [phone] Blood erythrocytes count (nu mber/volume)on 04-17-2021 RBC (Bld) [#/Vol] 4.12 10*6/uL 4.2-5.4 [facility] Work Phone: [phone] Blood hemoglobin measurement (mass/volume)on 04-17-2021 Hemoglobin (Bld) [Mass/Vol] 12.9 g/dL 12.0-15.0 [facility] Work Phone: Blood lymphocytes/100 leukoc yteson 04-17-2021 Lymphocytes/100 WBC (Bld) 37.4 % 19-41 [facility] Work Phone: Blood monocytes/100 leukocyt eson 04-17-2021 Monocytes/100 WBC (Bld) 8.6 % 0-10 [facility] Work Phone: Blood platelet mean volumeon 04-17-2021 Platelet mean volume (Bld) [Entitic vol] 10.5 fL 6.2-12.0 [facility] Work Phone: [phone] Determination of erythrocyte mean corpuscular volume (MCV)on 04-17-2021 MCV (RBC) [Entitic vol] 96.1 fL 81-99 [facility] Work Phone: [phone] Hematocrit Auto (Bld) [Volum e fraction]on 04-17-2021 Hematocrit (Bld) [Volume fraction] 39.6 % 37-47 [facility] Work Phone: [phone] Laboratory - Chemistry and C hemistry - challengeon 04-17-2021 ALP [Catalytic activity/Vol] 56 U/L 45-117 [facility] Work Phone: ALT [Catalytic activity/Vol] 22 U/L 13-56 [facility] Work Phone: CO2 [Moles/Vol] 27.0 mmol/L 21.0-32.0 [facility] Work Phone: [phone] Globulin (S) [Mass/Vol] 3.8 g/dL 2.2-4.2 [facility] Work Phone: [phone] Urea nitrogen/Creatinine [Mass ratio] 19.5 mg/mg 10-20 [facility] Work Phone: Laboratory - Hematology and Cell countson 04-17-2021 Basophils/100 WBC (Unsp spec) 0.6 % 0-1 [facility] Work Phone: [phone] Erythrocyte distribution width (RBC) [Entitic vol] 45.5 fL 35.1-43.9 [facility] Work Phone: [phone] Erythrocyte distribution width (RBC) [Ratio] 13.0 % 11.6-14.6 [facility] Work Phone: [phone] Immature granulocytes/100 WBC (Bld) 0.200 % 0.0-0.9 [facility] Work Phone: Comment on above: IG% - Immature Granu locytes (promyelocytes, myelocytes and metamyelocytes) > 1% indicates that a LEFT SHIFT is Present. MCH (RBC) [Entitic mass] 31.3 pg 27.0-32.0 [facility] Work Phone: [phone] Neutrophils/100 WBC (Bld) 52.1 % 47-70 [facility] Work Phone: [phone] Nucleated RBC/100 WBC (Bld) [Ratio] 0 % 0-5 [facility] Work Phone: MCHC Auto (RBC) [Mass/Vol]on 04-17-2021 MCHC (RBC) [Mass/Vol] 32.6 g/dL 32-36 [facility] Work Phone: No Panel Informationon 04-17 Estimated Creatinine Clearance Calc 45.96 ml/min [facility] Work Phone: Estimated GFR (MDRD) Amer 85 mL/min >60 [facility] Work Phone: Comment on above: GFR Calc Estimated GFR (MDRD) Non-Af Amer 70 mL/min >60 [facility] Work Phone: Comment on above: Non- GFR Calc Platelets bldon 04-17-2021 Platelets (Bld) [#/Vol] 203 10*3/uL 150-450 [facility] Work Phone: Serum or plasma albumin criss urement (mass/volume)on 04-17-2021 Albumin [Mass/Vol] 3.6 g/dL 3.2-5.0 [facility] Work Phone: Serum or plasma albumin/glob ulin mass ratioon 04-17-2021 Albumin/Globulin [Mass ratio] 0.9 {ratio} 0.9-2.4 [facility] Work Phone: Serum or plasma calcium criss urement (mass/volume)on 04-17-2021 Calcium [Mass/Vol] 9.3 mg/dL 8.5-10.1 [facility] Work Phone: Serum or plasma creatinine m easurement (mass/volume)on 04-17-2021 Creatinine [Mass/Vol] 0.82 mg/dL 0.55-1.02 [facility] Work Phone: Comment on above: The validity of the calculated GFR & GFRAA in patients over 70 years has not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 55.[address] Teagan Hall MD Work Phone: 3(363)327-976126 [address] 05-01-2024 13:30-0500 Diastolic blood pressure 55 mm[Hg] Dr. Teagan Hall MD Work Phone: 4(049)807-904126 [address] 05-01-2024 13:30-0500 Heart rate 58 /min Dr. Teagan Hall MD Work Phone: 6(796)683-748826 [address] 05-01-2024 13:30-0500 Respiratory rate 18 /min Dr. Teagan Hall MD Work Phone: 3(636)553-211543 [place] [address] 05-01-2024 13:30-0500 SaO2% (BldA) [Mass fraction] 98 % Dr. Teagan Hall MD Work Phone: 2(589)159-132143 [place] [address] 05-01-2024 13:30-0500 Systolic blood pressure 101 mm[Hg] Dr. Teagan Hall MD Work Phone: 3(410)895-763343 [place] [address] 08-24-2023 14:04-0400 Diastolic blood pressure 59 mm[Hg] Dr. Teagan Hall Work Phone: 9(565)483-821726 [address] 08-24-2023 14:04-0400 Heart rate 60 /min Dr. Teagan Hall Work Phone: [facility] 08-24-2023 14:04-0400 Respiratory rate 18 /min Dr. Teagan Hall Work Phone: [facility] 08-24-2023 14:04-0400 Systolic blood pressure 114 mm[Hg] Dr. Teagan Hall Work Phone: [facility] 08-24-2023 13:48-0400 Body temperature 96 [degF] Dr. Teagna Hall Work Phone: [facility] 07-19-2023 12:15-0400 Diastolic blood pressure 53 mm[Hg] Dr. Teagan Hall Work Phone: [facility] 07-19-2023 12:15-0400 Heart rate 60 /min Dr. Teagan Hall Work Phone: [facility] 07-19-2023 12:15-0400 Respiratory rate 18 /min Dr. Teagan Hall Work Phone: [facility] 07-19-2023 12:15-0400 Systolic blood pressure 125 mm[Hg] Dr. Teagan Hall Work Phone: [facility] 07-16-2023 10:14-0400 Body height 165.[address] Teagan Hall Work Phone: [facility] 07-16-2023 10:14-0400 Body mass index (BMI) [Ratio] 20.5 kg/m2 Dr. Teagan Hall Work Phone: [facility] 07-16-2023 10:14-0400 Body weight 55.[address] Teagan Hall Work Phone: [facility] 07-16-2023 10:14-0400 Diastolic blood pressure 72 mm[Hg] Dr. Teagan Hall Work Phone: [facility] 07-16-2023 10:14-0400 Heart rate 9 /min Dr. Teagan Hall Work Phone: [facility] 07-16-2023 10:14-0400 Respiratory rate 22 /min Dr. Teagan Hall Work Phone: [facility] 07-16-2023 10:14-0400 Systolic blood pressure 123 mm[Hg] Dr. Teagan Hall Work Phone: [facility] 07-12-2023 13:31-0400 Body mass index (BMI) [Ratio] 20.6 kg/m2 Dr. Teagan Hall Work Phone: [facility] 07-12-2023 13:31-0400 Body temperature 97.5 [degF] Dr. Teagan Hall Work Phone: [facility] 07-12-2023 13:31-0400 Body weight 56.[address] Teagan Hall Work Phone: [facility] 07-12-2023 13:31-0400 Diastolic blood pressure 85 mm[Hg] Dr. Teagan Hall Work Phone: [facility] 07-12-2023 13:31-0400 Heart rate 60 /min Dr. Teagan Hall Work Phone: [facility] 07-12-2023 13:31-0400 Respiratory rate 16 /min Dr. Teagan Hall Work Phone: [facility] 07-12-2023 13:31-0400 SaO2% (BldA) [Mass fraction] 98 % Dr. Teagan Hall Work Phone: [facility] 07-12-2023 13:31-0400 Systolic blood pressure 137 mm[Hg] Dr. Teagan Hall Work Phone: [facility] 06-23-2023 15:34-0500 Diastolic blood pressure 60 mm[Hg] Dr. Teagan Hall Work Phone: [facility] 06-23-2023 15:34-0500 Heart rate 63 /min Dr. Teagan Hall Work Phone: [facility] 06-23-2023 15:34-0500 Respiratory rate 16 /min Dr. Teagan Hall Work Phone: [facility] 06-23-2023 15:34-0500 Systolic blood pressure 126 mm[Hg] Dr. Teagan Hall Work Phone: [facility] 06-23-2023 14:09-0500 Body height 165.[address] Teagan Hall Work Phone: [facility] 06-23-2023 14:09-0500 Body mass index (BMI) [Ratio] 19.6 kg/m2 Dr. Teagan Hall Work Phone: [facility] 06-23-2023 14:09-0500 Body temperature 98.2 [degF] Dr. Teagan Hall Work Phone: [facility] 06-23-2023 14:09-0500 Body weight 53.[address] Teagan Hall Work Phone: [facility] 06-23-2023 14:09-0500 SaO2% (BldA) [Mass fraction] 95 % Dr. Teagan Hall Work Phone: [facility] 05-26-2023 16:29-0500 Body temperature 98.3 [degF] Dr. Teagan Hall Work Phone: [facility] 05-26-2023 16:29-0500 Diastolic blood pressure 58 mm[Hg] Dr. Teagan Hall Work Phone: [facility] 05-26-2023 16:29-0500 Heart rate 61 /min Dr. Teagan Hall Work Phone: [facility] 05-26-2023 16:29-0500 Respiratory rate 16 /min Dr. Teagan Hall Work Phone: [facility] 05-26-2023 16:29-0500 SaO2% (BldA) [Mass fraction] 99 % Dr. Teagan Hall Work Phone: [facility] 05-26-2023 16:29-0500 Systolic blood pressure 134 mm[Hg] Dr. Teagan Hall Work Phone: [facility] 05-26-2023 15:13-0500 Body height 165.[address] Teagan Hall Work Phone: [facility] 05-26-2023 15:13-0500 Body mass index (BMI) [Ratio] 19.1 kg/m2 Dr. Teagan Hall Work Phone: [facility] 05-26-2023 15:13-0500 Body weight 52.[address] Teagan Hall Work Phone: 6(686)660-752626 [address] 05-26-2023 07:14-0500 Body mass index (BMI) [Ratio] 19.3 kg/m2 Dr. Teagan Hall Work Phone: 1(809)860-887226 [address] 05-26-2023 07:14-0500 Body temperature 97.4 [degF] Dr. Teagan Hall Work Phone: 8(255)991-088943 [place] [address] 05-26-2023 07:14-0500 Body weight 52.[address] Teagan Hall Work Phone: 6(730)317-145226 [address] 05-26-2023 07:14-0500 Diastolic blood pressure 64 mm[Hg] Dr. Teagan Hall Work Phone: 2(114)511-672643 [place] [address] 05-26-2023 07:14-0500 Heart rate 60 /min Dr. Teagan Hall Work Phone: [facility] 05-26-2023 07:14-0500 Respiratory rate 16 /min Dr. Teagan Hall Work Phone: 8(295)810-580526 [address] 05-26-2023 07:14-0500 SaO2% (BldA) [Mass fraction] 98 % Dr. Teagan Hall Work Phone: [facility] 05-26-2023 07:14-0500 Systolic blood pressure 127 mm[Hg] Dr. Teagan Hall Work Phone: [facility] 05-12-2023 12:58-0500 Body height 165.[address] Teagan Hall Work Phone: [facility] 05-12-2023 12:58-0500 Body weight 50.[address] Teagan Hall Work Phone: [facility] 05-12-2023 12:58-0500 Heart rate 60 /min Dr. Teagan Hall Work Phone: [facility] 05-12-2023 12:58-0500 SaO2% (BldA) [Mass fraction] 99 % Dr. Teagan Hall Work Phone: 2(922)302-494126 [address] 05-06-2023 08:28-0500 Body height 165.[address] Teagan Hall Work Phone: 1(770)758-141243 [place] [address] 05-06-2023 08:28-0500 Body weight 54.[address] Teagan Hall Work Phone: [facility] 05-06-2023 08:26-0500 Body mass index (BMI) [Ratio] 20 kg/m2 Dr. Teagan Hall Work Phone: 0(005)529-462343 [place] [address] 05-04-2023 08:07-0500 Body mass index (BMI) [Ratio] 18.7 kg/m2 Dr. Teagan Hall Work Phone: [facility] 05-04-2023 08:07-0500 Body temperature 97.2 [degF] Dr. Teagan Hall Work Phone: [facility] 05-04-2023 08:07-0500 Body weight 51.[address] Teagan Hall Work Phone: [facility] 05-04-2023 08:07-0500 Diastolic blood pressure 61 mm[Hg] Dr. Teagan Hall Work Phone: [facility] 05-04-2023 08:07-0500 Heart rate 77 /min Dr. Teagan Hall Work Phone: 9(873)974-535343 [place] [address] 05-04-2023 08:07-0500 Respiratory rate 20 /min Dr. Teagan Hall Work Phone: [facility] 05-04-2023 08:07-0500 SaO2% (BldA) [Mass fraction] 95 % Dr. Teagan Hall Work Phone: [facility] 05-04-2023 08:07-0500 Systolic blood pressure 112 mm[Hg] Dr. Teagan Hall Work Phone: [facility] 04-08-2023 13:53-0500 Diastolic blood pressure 45 mm[Hg] Dr. Teagan Hall Work Phone: 6(956)270-402543 [place] [address] 04-08-2023 13:53-0500 Heart rate 97 /min Dr. Teagan Hall Work Phone: 8(824)649-268343 [place] [address] 04-08-2023 13:53-0500 Respiratory rate 18 /min Dr. Teagan Hall Work Phone: 1(012)725-647643 [place] [address] 04-08-2023 13:53-0500 Systolic blood pressure 87 mm[Hg] Dr. Teagan Hall Work Phone: 9(919)844-309943 [place] [address] 04-07-2023 12:55-0500 Body height 165.[address] Teagan Hall Work Phone: 9(250)296-728926 [address] 04-07-2023 12:55-0500 Body mass index (BMI) [Ratio] 20 kg/m2 Dr. Teagan Hall Work Phone: 6(444)992-228243 [place] [address] 04-07-2023 12:55-0500 Body weight 54.[address] Teagan Hall Work Phone: 5(847)349-730443 [place] [address] 04-07-2023 12:55-0500 Diastolic blood pressure 83 mm[Hg] Dr. Teagan Hall Work Phone: [facility] 04-07-2023 12:55-0500 Heart rate 94 /min Dr. Teagan Hall Work Phone: [facility] 04-07-2023 12:55-0500 Respiratory rate 20 /min Dr. Teagan Hall Work Phone: [facility] 04-07-2023 12:55-0500 Systolic blood pressure 118 mm[Hg] Dr. Teagan Hall Work Phone: [facility] 03-17-2023 12:34-0500 Diastolic blood pressure 66 mm[Hg] Dr. Teagan Hall Work Phone: 4(519)762-991101 [place] [address] 03-17-2023 12:34-0500 Heart rate 96 /min Dr. Teagan Hall Work Phone: 6(480)118-386443 [place] [address] 03-17-2023 12:34-0500 Respiratory rate 16 /min Dr. Teagan Hall Work Phone: 7(876)047-243726 [address] 03-17-2023 12:34-0500 Systolic blood pressure 117 mm[Hg] Dr. Teagan Hall Work Phone: 8(586)331-369601 [place] [address] 03-17-2023 11:08-0500 Body height 165.[address] Teagan Hall Work Phone: 1(224)474-384301 [place] [address] 03-17-2023 11:08-0500 Body mass index (BMI) [Ratio] 20.5 kg/m2 Dr. Teagan Hall Work Phone: 9(462)110-314601 [place] [address] 03-17-2023 11:08-0500 Body temperature 97.1 [degF] Dr. Teagan Hall Work Phone: 4(507)674-672843 [place] [address] 03-17-2023 11:08-0500 Body weight 55.[address] Teagan Hall Work Phone: [facility] 03-17-2023 11:08-0500 SaO2% (BldA) [Mass fraction] 95 % Dr. Teagan Hall Work Phone: [facility] 02-25-2023 09:18-0400 Diastolic blood pressure 65 mm[Hg] Dr. Teagan Hall Work Phone: 6(723)973-054343 [place] [address] 02-25-2023 09:18-0400 Heart rate 95 /min Dr. Teagan Hall Work Phone: [facility] 02-25-2023 09:18-0400 Systolic blood pressure 128 mm[Hg] Dr. Teagan Hall Work Phone: 1(868)733-241201 [place] [address] 02-25-2023 09:12-0400 Body temperature 97.3 [degF] Dr. Teagan Hall Work Phone: 6(024)384-412701 [place] [address] 02-25-2023 09:12-0400 Respiratory rate 20 /min Dr. Teagan Hall Work Phone: 3(917)646-665626 [address] 02-25-2023 09:12-0400 SaO2% (BldA) [Mass fraction] 92 % Dr. Teagan Hall Work Phone: 2(191)728-958401 [place] [address] 02-25-2023 05:07-0400 Body mass index (BMI) [Ratio] 20.7 kg/m2 Dr. Teagan Hall Work Phone: 7(370)640-122901 [place] [address] 02-25-2023 05:07-0400 Body weight 56.[address] Teagan Hall Work Phone: 2(331)063-504601 [place] [address] 02-24-2023 11:00-0400 Diastolic blood pressure 63 mm[Hg] Dr. Teagan Hall Work Phone: 1(810)824-479101 [place] [address] 02-24-2023 11:00-0400 Heart rate 86 /min Dr. Teagan Hall Work Phone: 8(495)856-928401 [place] [address] 02-24-2023 11:00-0400 Respiratory rate 13 /min Dr. Teagan Hall Work Phone: 4(172)692-912626 [address] 02-24-2023 11:00-0400 SaO2% (BldA) [Mass fraction] 100 % Dr. Teagan Hall Work Phone: 5(760)841-452301 [place] [address] 02-24-2023 11:00-0400 Systolic blood pressure 103 mm[Hg] Dr. Teagan Hall Work Phone: 3(945)946-354601 [place] [address] 02-24-2023 09:38-0400 Body height 165.[address] Teagan Hall Work Phone: [facility] 02-24-2023 09:38-0400 Body weight 57.[address] Teagan Hall Work Phone: [facility] 02-24-2023 08:00-0400 Body temperature 97.9 [degF] Dr. Teagan Hall Work Phone: [facility] 02-24-2023 06:00-0400 Body mass index (BMI) [Ratio] 20.9 kg/m2 Dr. Teagan Hall Work Phone: [facility] 02-23-2023 20:05-0400 Body temperature 98.5 [degF] Dr. Teagan Hall Work Phone: [facility] 02-23-2023 20:05-0400 Diastolic blood pressure 63 mm[Hg] Dr. Teagan Hall Work Phone: 9(447)348-325243 [place] [address] 02-23-2023 20:05-0400 Heart rate 79 /min Dr. Teagan Hall Work Phone: [facility] 02-23-2023 20:05-0400 Respiratory rate 17 /min Dr. Teagan Hall Work Phone: [facility] 02-23-2023 20:05-0400 SaO2% (BldA) [Mass fraction] 99 % Dr. Teagan Hall Work Phone: [facility] 02-23-2023 20:05-0400 Systolic blood pressure 122 mm[Hg] Dr. Teagan Hall Work Phone: [facility] 02-23-2023 20:00-0400 Inhaled oxygen flow rate 3 L/min Dr. Teagan Hall Work Phone: [facility] 02-23-2023 16:59-0400 Body mass index (BMI) [Ratio] 20.1 kg/m2 Dr. Teagan Hall Work Phone: [facility] 02-23-2023 16:59-0400 Body weight [address] Teagan Hall Work Phone: [facility] 02-23-2023 16:58-0400 Body height 165.[address] Teagan Hall Work Phone: [facility] 02-22-2023 07:42-0400 Body temperature 97 [degF] Dr. Teagan Hall Work Phone: [facility] 02-22-2023 07:42-0400 Diastolic blood pressure 56 mm[Hg] Dr. Teagan Hall Work Phone: [facility] 02-22-2023 07:42-0400 Heart rate 75 /min Dr. Teagan Hall Work Phone: [facility] 02-22-2023 07:42-0400 Respiratory rate 18 /min Dr. Teagan Hall Work Phone: [facility] 02-22-2023 07:42-0400 Systolic blood pressure 117 mm[Hg] Dr. Teagan Hall Work Phone: [facility] 02-17-2023 12:27-0400 Body temperature 97.4 [degF] Dr. Teagan Hall Work Phone: [facility] 02-17-2023 12:27-0400 Diastolic blood pressure 72 mm[Hg] Dr. Teagan Hall Work Phone: [facility] 02-17-2023 12:27-0400 Heart rate 53 /min Dr. Teagan Hall Work Phone: [facility] 02-17-2023 12:27-0400 Respiratory rate 16 /min Dr. Teagan Hall Work Phone: [facility] 02-17-2023 12:27-0400 SaO2% (BldA) [Mass fraction] 97 % Dr. Teagan Hall Work Phone: [facility] 02-17-2023 12:27-0400 Systolic blood pressure 124 mm[Hg] Dr. eTagan Hall Work Phone: [facility] 02-17-2023 11:30-0400 Body height 165.[address] Teagan Hall Work Phone: [facility] 02-17-2023 11:30-0400 Body mass index (BMI) [Ratio] 21.2 kg/m2 Dr. Teagan Hall Work Phone: 1(685)231-833143 [place] [address] 02-17-2023 11:30-0400 Body weight 58.[address] Teagan Hall Work Phone: 4(710)855-836026 [address] 02-11-2023 09:32-0400 Body mass index (BMI) [Ratio] 21.2 kg/m2 Dr. Teagan Hall Work Phone: 3(774)165-818501 [place] [address] 02-11-2023 09:32-0400 Body weight 58.[address] Teagan Hall Work Phone: 2(589)276-168301 [place] [address] 02-11-2023 09:32-0400 Diastolic blood pressure 75 mm[Hg] Dr. Teagan Hall Work Phone: 8(870)956-601443 [place] [address] 02-11-2023 09:32-0400 Heart rate 62 /min Dr. Teagan Hall Work Phone: 6(773)545-586901 [place] [address] 02-11-2023 09:32-0400 Respiratory rate 18 /min Dr. Teagan Hall Work Phone: 5(630)645-201701 [place] [address] 02-11-2023 09:32-0400 SaO2% (BldA) [Mass fraction] 98 % Dr. Teagan Hall Work Phone: 5(011)442-979926 [address] 02-11-2023 09:32-0400 Systolic blood pressure 128 mm[Hg] Dr. Teagan Hall Work Phone: 6(350)483-302301 [place] [address] 02-04-2023 11:21-0400 Body mass index (BMI) [Ratio] 20.6 kg/m2 Dr. Teagan Hall Work Phone: 7(190)599-866443 [place] [address] 02-04-2023 11:21-0400 Body weight 56.[address] Teagan Hall Work Phone: 4(509)434-982143 [place] [address] 02-04-2023 11:21-0400 Diastolic blood pressure 65 mm[Hg] Dr. Teagan Hall Work Phone: [facility] 02-04-2023 11:21-0400 Heart rate 54 /min Dr. Teagan Hall Work Phone: [facility] 02-04-2023 11:21-0400 Respiratory rate 16 /min Dr. Teagan Hall Work Phone: [facility] 02-04-2023 11:21-0400 Systolic blood pressure 131 mm[Hg] Dr. Teagan Hall Work Phone: 2(583)999-896743 [place] [address] 01-27-2023 14:00-0400 Diastolic blood pressure 64 mm[Hg] Dr. Teagan Hall Work Phone: 1(191)904-139043 [place] [address] 01-27-2023 14:00-0400 Systolic blood pressure 92 mm[Hg] Dr. Teagan Hall Work Phone: [facility] 01-27-2023 11:01-0400 Body temperature 96.9 [degF] Dr. Teagan Hall Work Phone: [facility] 01-27-2023 11:01-0400 Heart rate 87 /min Dr. Teagan Hall Work Phone: [facility] 01-27-2023 11:01-0400 Respiratory rate 20 /min Dr. Teagan Hall Work Phone: [facility] 01-27-2023 11:01-0400 SaO2% (BldA) [Mass fraction] 100 % Dr. Teagan Hall Work Phone: [facility] 01-25-2023 14:05-0400 Body temperature 97.5 [degF] Dr. Teagan Hall Work Phone: [facility] 01-25-2023 14:05-0400 Diastolic blood pressure 77 mm[Hg] Dr. Teagan Hall Work Phone: [facility] 01-25-2023 14:05-0400 Heart rate 91 /min Dr. Teagan Hall Work Phone: 0(911)092-855443 [place] [address] 01-25-2023 14:05-0400 Respiratory rate 18 /min Dr. Teagan Hall Work Phone: 1(362)633-336401 [place] [address] 01-25-2023 14:05-0400 Systolic blood pressure 123 mm[Hg] Dr. Teagan Hall Work Phone: 3(612)804-553401 [place] [address] 01-20-2023 12:23-0400 Body temperature 97.5 [degF] Dr. Teagan Hall Work Phone: 8(589)632-645501 [place] [address] 01-20-2023 12:23-0400 Diastolic blood pressure 68 mm[Hg] Dr. Teagan Hall Work Phone: 6(660)301-138201 [place] [address] 01-20-2023 12:23-0400 Heart rate 103 /min Dr. Teagan Hall Work Phone: 2(549)745-984201 [place] [address] 01-20-2023 12:23-0400 Respiratory rate 16 /min Dr. Teagan Hall Work Phone: 7(685)858-294901 [place] [address] 01-20-2023 12:23-0400 Systolic blood pressure 130 mm[Hg] Dr. Teagan Hall Work Phone: 6(095)255-398401 [place] [address] 01-20-2023 11:08-0400 Body height 165.[address] Teagan Hall Work Phone: 8(111)404-028001 [place] [address] 01-20-2023 11:08-0400 Body mass index (BMI) [Ratio] 21.1 kg/m2 Dr. Teagan Hall Work Phone: 7(277)622-609101 [place] [address] 01-20-2023 11:08-0400 Body temperature 97.5 [degF] Dr. Teagan Hall Work Phone: 3(419)592-388601 [place] [address] 01-20-2023 11:08-0400 Body weight 57.[address] Teagan Hall Work Phone: 0(412)642-580601 [place] [address] 01-20-2023 11:08-0400 Diastolic blood pressure 72 mm[Hg] Dr. Teagan Hall Work Phone: [facility] 01-20-2023 11:08-0400 Heart rate 108 /min Dr. Teagan Hall Work Phone: [facility] 01-20-2023 11:08-0400 Respiratory rate 16 /min Dr. Teagan Hall Work Phone: [facility] 01-20-2023 11:08-0400 SaO2% (BldA) [Mass fraction] 98 % Dr. Teagan Hall Work Phone: [facility] 01-20-2023 11:08-0400 Systolic blood pressure 137 mm[Hg] Dr. Teagan Hall Work Phone: [facility] 01-18-2023 00:33-0400 Diastolic blood pressure 90 mm[Hg] Dr. Teagan Hall Work Phone: [facility] 01-18-2023 00:33-0400 Heart rate 98 /min Dr. Teagan Hall Work Phone: [facility] 01-18-2023 00:33-0400 Systolic blood pressure 117 mm[Hg] Dr. Teagan Hall Work Phone: [facility] 01-18-2023 00:06-0400 Respiratory rate 20 /min Dr. Teagan Hall Work Phone: [facility] 01-18-2023 00:06-0400 SaO2% (BldA) [Mass fraction] 99 % Dr. Teagan Hall Work Phone: [facility] 01-17-2023 22:25-0400 Body mass index (BMI) [Ratio] 21.9 kg/m2 Dr. Teagan Hall Work Phone: [facility] 01-17-2023 22:25-0400 Body temperature 97.9 [degF] Dr. Teagan Hall Work Phone: [facility] 01-17-2023 22:25-0400 Body weight 59.[address] Teagan Hall Work Phone: [facility] 01-07-2023 11:32-0400 Body mass index (BMI) [Ratio] 20.6 kg/m2 Dr. Teagan Hall Work Phone: [facility] 01-07-2023 11:32-0400 Body weight 56.[address] Teagan Hall Work Phone: [facility] 01-07-2023 11:32-0400 Diastolic blood pressure 73 mm[Hg] Dr. Teagan Hall Work Phone: [facility] 01-07-2023 11:32-0400 Heart rate 102 /min Dr. Teagan Hall Work Phone: 0(082)171-934043 [place] [address] 01-07-2023 11:32-0400 Respiratory rate 22 /min Dr. Teagan Hall Work Phone: 1(537)214-988826 [address] 01-07-2023 11:32-0400 SaO2% (BldA) [Mass fraction] 97 % Dr. Teagan Hall Work Phone: [facility] 01-07-2023 11:32-0400 Systolic blood pressure 120 mm[Hg] Dr. Teagan Hall Work Phone: [facility] 01-06-2023 16:52-0400 Diastolic blood pressure 70 mm[Hg] Dr. Teagan Hall Work Phone: 7(301)981-515143 [place] [address] 01-06-2023 16:52-0400 Heart rate 100 /min Dr. Teagan Hall Work Phone: [facility] 01-06-2023 16:52-0400 Respiratory rate 16 /min Dr. Teagan Hall Work Phone: [facility] 01-06-2023 16:52-0400 SaO2% (BldA) [Mass fraction] 96 % Dr. Teagan Hall Work Phone: [facility] 01-06-2023 16:52-0400 Systolic blood pressure 119 mm[Hg] Dr. Teagan Hall Work Phone: [facility] 01-06-2023 13:12-0400 Body height 165.[address] Teagan Hall Work Phone: [facility] 01-06-2023 13:12-0400 Body mass index (BMI) [Ratio] 22.6 kg/m2 Dr. Teagan Hall Work Phone: [facility] 01-06-2023 13:12-0400 Body temperature 97.1 [degF] Dr. Teagan Hall Work Phone: [facility] 01-06-2023 13:12-0400 Body weight 61.[address] Teagan Hall Work Phone: [facility] 01-05-2023 14:06-0400 Body height 165.[address] Teagan Hall Work Phone: [facility] 01-05-2023 14:06-0400 Body mass index (BMI) [Ratio] 21.3 kg/m2 Dr. Teagan Hall Work Phone: [facility] 01-05-2023 14:06-0400 Body temperature 98.9 [degF] Dr. Teagan Hall Work Phone: [facility] 01-05-2023 14:06-0400 Body weight 58.[address] Teagan Hall Work Phone: [facility] 01-05-2023 14:06-0400 Diastolic blood pressure 81 mm[Hg] Dr. Teagan Hall Work Phone: [facility] 01-05-2023 14:06-0400 Heart rate 82 /min Dr. Teagan Hall Work Phone: [facility] 01-05-2023 14:06-0400 Respiratory rate 18 /min Dr. Teagan Hall Work Phone: [facility] 01-05-2023 14:06-0400 SaO2% (BldA) [Mass fraction] 98 % Dr. Teagan Hall Work Phone: [facility] 01-05-2023 14:06-0400 Systolic blood pressure 137 mm[Hg] Dr. Teagan Hall Work Phone: [facility] 01-04-2023 09:32-0400 Diastolic blood pressure 75 mm[Hg] Dr. Teagan Hall Work Phone: [facility] 01-04-2023 09:32-0400 Heart rate 91 /min Dr. Teagan Hall Work Phone: [facility] 01-04-2023 09:32-0400 Systolic blood pressure 164 mm[Hg] Dr. Teagan Hall Work Phone: 6(214)346-208343 [place] [address] 01-04-2023 08:30-0400 Body temperature 97.6 [degF] Dr. Teagan Hall Work Phone: 1(241)766-511643 [place] [address] 01-04-2023 08:30-0400 Respiratory rate 18 /min Dr. Teagan Hall Work Phone: [facility] 01-04-2023 08:30-0400 SaO2% (BldA) [Mass fraction] 100 % Dr. Teagan Hall Work Phone: [facility] 01-03-2023 15:56-0400 Body mass index (BMI) [Ratio] 20.6 kg/m2 Dr. Teagan Hall Work Phone: [facility] 01-03-2023 15:56-0400 Body weight 56.[address] Teagan Hall Work Phone: [facility] 01-03-2023 15:00-0400 Diastolic blood pressure 68 mm[Hg] Dr. Teagan Hall Work Phone: [facility] 01-03-2023 15:00-0400 Heart rate 82 /min Dr. Teagan Hall Work Phone: [facility] 01-03-2023 15:00-0400 Respiratory rate 16 /min Dr. Teagan Hall Work Phone: [facility] 01-03-2023 15:00-0400 SaO2% (BldA) [Mass fraction] 98 % Dr. Teagan Hall Work Phone: [facility] 01-03-2023 15:00-0400 Systolic blood pressure 124 mm[Hg] Dr. Teagan Hall Work Phone: [facility] 01-03-2023 14:37-0400 Body temperature 97.8 [degF] Dr. Teagan Hall Work Phone: 2(651)136-112543 [place] [address] 01-03-2023 09:02-0400 Body height 165.[address] Teagan Hall Work Phone: 2(426)486-654326 [address] 01-03-2023 09:02-0400 Body mass index (BMI) [Ratio] 21.6 kg/m2 Dr. Teagan Hall Work Phone: 7(333)419-725043 [place] [address] 01-03-2023 09:02-0400 Body weight [address] Teagan Hall Work Phone: 3(238)442-405143 [place] [address] 01-03-2023 09:02-0400 Inhaled oxygen flow rate 2 L/min Dr. Teagan Hall Work Phone: [facility] 12-09-2022 12:43-0400 Body temperature 96.8 [degF] Dr. Teagan Hall Work Phone: 9(388)475-600843 [place] [address] 12-09-2022 12:43-0400 Diastolic blood pressure 56 mm[Hg] Dr. Teagan Hall Work Phone: [facility] 12-09-2022 12:43-0400 Heart rate 72 /min Dr. Teagan Hall Work Phone: 4(258)[phone] [place] [address] 12-09-2022 12:43-0400 Respiratory rate 16 /min Dr. Teagan Hall Work Phone: [facility] 12-09-2022 12:43-0400 SaO2% (BldA) [Mass fraction] 100 % Dr. Teagan Hall Work Phone: [facility] 12-09-2022 12:43-0400 Systolic blood pressure 127 mm[Hg] Dr. Teagan Hall Work Phone: [facility] 12-09-2022 11:02-0400 Body height 165.[address] Teagan Hall Work Phone: [facility] 12-09-2022 11:02-0400 Body mass index (BMI) [Ratio] 20 kg/m2 Dr. Teagan Hall Work Phone: [phone] [address] 12-09-2022 11:02-0400 Body weight 54.[address] Teagan Hall Work Phone: 2(871)915-680326 [address] 11-12-2022 07:13-0400 Body height 165.[address] Teagan Hall Work Phone: 6(923)196-801526 [address] 11-12-2022 07:13-0400 Body mass index (BMI) [Ratio] 20.2 kg/m2 Dr. Teagan Hall Work Phone: 8(716)764-549226 [address] 11-12-2022 07:13-0400 Body temperature 98.1 [degF] Dr. Teagan Hall Work Phone: 3(380)110-704101 [place] [address] 11-12-2022 07:13-0400 Body weight 55.[address] Teagan Hall Work Phone: 2(431)204-973243 [place] [address] 11-12-2022 07:13-0400 Diastolic blood pressure 107 mm[Hg] Dr. Teagan Hall Work Phone: 0(852)233-239943 [place] [address] 11-12-2022 07:13-0400 Heart rate 94 /min Dr. Teagan Hall Work Phone: 8(695)639-184426 [address] 11-12-2022 07:13-0400 Respiratory rate 14 /min Dr. Teagan Hall Work Phone: 7(653)645-176126 [address] 11-12-2022 07:13-0400 SaO2% (BldA) [Mass fraction] 100 % Dr. Teagan Hall Work Phone: 6(746)877-697243 [place] [address] 11-12-2022 07:13-0400 Systolic blood pressure 130 mm[Hg] Dr. Teagan Hall Work Phone: [facility] 11-11-2022 12:24-0400 Diastolic blood pressure 45 mm[Hg] Dr. Teagan Hall Work Phone: [facility] 11-11-2022 12:24-0400 Heart rate 66 /min Dr. Teagan Hall Work Phone: [facility] 11-11-2022 12:24-0400 Systolic blood pressure 122 mm[Hg] Dr. Teagan Hall Work Phone: [facility] 11-11-2022 11:00-0400 Body height 165.[address] Teagan Hall Work Phone: [facility] 11-11-2022 11:00-0400 Body mass index (BMI) [Ratio] 20 kg/m2 Dr. Teagan Hall Work Phone: [facility] 11-11-2022 11:00-0400 Body temperature 97.6 [degF] Dr. Teagan Hall Work Phone: [facility] 11-11-2022 11:00-0400 Body weight 54.[address] Teagan Hall Work Phone: [facility] 11-11-2022 11:00-0400 Respiratory rate 16 /min Dr. Teagan Hall Work Phone: [facility] 11-11-2022 11:00-0400 SaO2% (BldA) [Mass fraction] 98 % Dr. Teagan Hall Work Phone: [facility] 10-14-2022 14:21-0400 Body temperature 97.2 [degF] Dr. Teagan Hall Work Phone: [facility] 10-14-2022 14:21-0400 Diastolic blood pressure 54 mm[Hg] Dr. Teagan Hall Work Phone: [facility] 10-14-2022 14:21-0400 Heart rate 71 /min Dr. Teagan Hall Work Phone: [facility] 10-14-2022 14:21-0400 Respiratory rate 16 /min Dr. Teagan Hall Work Phone: [facility] 10-14-2022 14:21-0400 SaO2% (BldA) [Mass fraction] 100 % Dr. Teagan Hall Work Phone: [facility] 10-14-2022 14:21-0400 Systolic blood pressure 115 mm[Hg] Dr. Teagan Hall Work Phone: [facility] 10-14-2022 13:05-0400 Body height 165.[address] Teagan Hall Work Phone: [facility] 10-01-2022 13:37-0400 Body mass index (BMI) [Ratio] 20.2 kg/m2 Dr. Teagan Hall Work Phone: 9(492)176-891843 [place] [address] 10-01-2022 13:37-0400 Body temperature 98.2 [degF] Dr. Teagan Hall Work Phone: [facility] 10-01-2022 13:37-0400 Body weight 55.[address] Teagan Hall Work Phone: [facility] 10-01-2022 13:37-0400 Diastolic blood pressure 73 mm[Hg] Dr. Teagan Hall Work Phone: [facility] 10-01-2022 13:37-0400 Heart rate 77 /min Dr. Teagan Hall Work Phone: [facility] 10-01-2022 13:37-0400 Respiratory rate 16 /min Dr. Teagan Hall Work Phone: [facility] 10-01-2022 13:37-0400 SaO2% (BldA) [Mass fraction] 99 % Dr. Teagan Hall Work Phone: [facility] 10-01-2022 13:37-0400 Systolic blood pressure 133 mm[Hg] Dr. Teagan Hall Work Phone: [facility] 09-16-2022 14:43-0400 Body temperature 97.8 [degF] Dr. Teagan Hall Work Phone: [facility] 09-16-2022 14:43-0400 Diastolic blood pressure 51 mm[Hg] Dr. Teagan Hall Work Phone: 9(272)521-950443 [place] [address] 09-16-2022 14:43-0400 Heart rate 76 /min Dr. Teagan Hall Work Phone: 6(268)897-607626 [address] 09-16-2022 14:43-0400 Respiratory rate 16 /min Dr. Teagan Hall Work Phone: 0(805)545-454201 [place] [address] 09-16-2022 14:43-0400 SaO2% (BldA) [Mass fraction] 100 % Dr. Teagan Hall Work Phone: 9(596)885-633443 [place] [address] 09-16-2022 14:43-0400 Systolic blood pressure 113 mm[Hg] Dr. Teagan Hall Work Phone: 6(859)670-825326 [address] 09-16-2022 13:19-0400 Body mass index (BMI) [Ratio] 19.6 kg/m2 Dr. Teagan Hall Work Phone: 4(243)752-882001 [place] [address] 09-16-2022 13:19-0400 Body weight 53.[address] Teagan Hall Work Phone: 9(854)674-901443 [place] [address] 09-10-2022 10:35-0400 Body mass index (BMI) [Ratio] 19.7 kg/m2 Dr. Teagan Hall Work Phone: 8(627)493-045543 [place] [address] 09-10-2022 10:35-0400 Body temperature 98.5 [degF] Dr. Teagan Hall Work Phone: 4(655)621-369601 [place] [address] 09-10-2022 10:35-0400 Body weight 53.[address] Teagan Hall Work Phone: 1(680)729-354926 [address] 09-10-2022 10:35-0400 Diastolic blood pressure 72 mm[Hg] Dr. Teagan Hall Work Phone: [facility] 09-10-2022 10:35-0400 Heart rate 77 /min Dr. Teagan Hall Work Phone: [facility] 09-10-2022 10:35-0400 Respiratory rate 16 /min Dr. Teagan Hall Work Phone: [facility] 09-10-2022 10:35-0400 SaO2% (BldA) [Mass fraction] 100 % Dr. Teagan Hall Work Phone: [facility] 09-10-2022 10:35-0400 Systolic blood pressure 125 mm[Hg] Dr. Teagan Hall Work Phone: [facility] 08-25-2022 15:20-0400 Diastolic blood pressure 55 mm[Hg] Dr. Teagan Hall Work Phone: [facility] 08-25-2022 15:20-0400 Heart rate 82 /min Dr. Teagan Hall Work Phone: [facility] 08-25-2022 15:20-0400 Respiratory rate 16 /min Dr. Teagan Hall Work Phone: [facility] 08-25-2022 15:20-0400 Systolic blood pressure 135 mm[Hg] Dr. Teagan Hall Work Phone: [facility] 08-24-2022 10:56-0400 Body height 165.[address] Teagan Hall Work Phone: [facility] 08-24-2022 10:56-0400 Body mass index (BMI) [Ratio] 20.8 kg/m2 Dr. Teagan Hall Work Phone: [facility] 08-24-2022 10:56-0400 Body temperature 98.2 [degF] Dr. Teagan Hall Work Phone: [facility] 08-24-2022 10:56-0400 Body weight 56.[address] Teagan Hall Work Phone: [facility] 08-24-2022 10:56-0400 Diastolic blood pressure 79 mm[Hg] Dr. Teagan Hall Work Phone: [facility] 08-24-2022 10:56-0400 Heart rate 69 /min Dr. Teagan Hall Work Phone: [facility] 08-24-2022 10:56-0400 Respiratory rate 16 /min Dr. Teaagn Hall Work Phone: [facility] 08-24-2022 10:56-0400 SaO2% (BldA) [Mass fraction] 99 % Dr. Teagan Hall Work Phone: [facility] 08-24-2022 10:56-0400 Systolic blood pressure 142 mm[Hg] Dr. Teagan Hall Work Phone: [facility] 08-19-2022 20:00-0400 Diastolic blood pressure 69 mm[Hg] Dr. Teagan Hall Work Phone: [facility] 08-19-2022 20:00-0400 Heart rate 79 /min Dr. Teagan Hall Work Phone: [facility] 08-19-2022 20:00-0400 Respiratory rate 26 /min Dr. Teagan Hall Work Phone: [facility] 08-19-2022 20:00-0400 SaO2% (BldA) [Mass fraction] 97 % Dr. Teagan Hall Work Phone: [facility] 08-19-2022 20:00-0400 Systolic blood pressure 142 mm[Hg] Dr. Teagan Hall Work Phone: [facility] 08-19-2022 19:13-0400 Body temperature 98.2 [degF] Dr. Teagan Hall Work Phone: [facility] 08-19-2022 15:59-0400 Body height 165.[address] Teagan Hall Work Phone: [facility] 08-19-2022 15:59-0400 Body mass index (BMI) [Ratio] 22.3 kg/m2 Dr. Teagan Hall Work Phone: [facility] 08-19-2022 15:59-0400 Body weight 60.[address] Teagan Hall Work Phone: [facility] 08-19-2022 14:29-0400 Diastolic blood pressure 36 mm[Hg] Dr. Teagan Hall Work Phone: [facility] 08-19-2022 14:29-0400 Heart rate 65 /min Dr. Teagan Hall Work Phone: [facility] 08-19-2022 14:29-0400 Respiratory rate 16 /min Dr. Teagan Hall Work Phone: [facility] 08-19-2022 14:29-0400 SaO2% (BldA) [Mass fraction] 100 % Dr. Teagan Hall Work Phone: [facility] 08-19-2022 14:29-0400 Systolic blood pressure 116 mm[Hg] Dr. Teagan Hall Work Phone: [facility] 08-19-2022 13:11-0400 Body mass index (BMI) [Ratio] 21.2 kg/m2 Dr. Teagan Hall Work Phone: [facility] 08-19-2022 13:11-0400 Body temperature 97.5 [degF] Dr. Teagan Hall Work Phone: [facility] 08-19-2022 13:11-0400 Body weight 58.[address] Teagan Hall Work Phone: [facility] 08-13-2022 10:36-0400 Body height 166.4 cm Marcus VARGASM Work Phone: [facility] 08-13-2022 10:36-0400 Body weight 58.51 kg Marcus Mello DPM Work Phone: [facility] 08-13-2022 10:36-0400 Respiratory rate 18 /min Marcus Mello DPM Work Phone: [facility] 07-22-2022 13:59-0400 Diastolic blood pressure 60 mm[Hg] Dr. Teagan Hall Work Phone: [facility] 07-22-2022 13:59-0400 Heart rate 75 /min Dr. Teagan Hall Work Phone: [facility] 07-22-2022 13:59-0400 Systolic blood pressure 124 mm[Hg] Dr. Teagan Hall Work Phone: [facility] 07-22-2022 12:26-0400 Body height 165.[address] Teagan Hall Work Phone: [facility] 07-22-2022 12:26-0400 Body mass index (BMI) [Ratio] 20.9 kg/m2 Dr. Teagan Hall Work Phone: [facility] 07-22-2022 12:26-0400 Body temperature 98 [degF] Dr. Teagan Hall Work Phone: [facility] 07-22-2022 12:26-0400 Body weight 57.[address] Teagan Hall Work Phone: [facility] 07-22-2022 12:26-0400 Respiratory rate 16 /min Dr. Teagan Hall Work Phone: [facility] 07-22-2022 12:26-0400 SaO2% (BldA) [Mass fraction] 98 % Dr. Teagan Hall Work Phone: [facility] 07-09-2022 14:06-0500 Body height 166.4 cm Marcus Mello DPM Work Phone: [facility] 07-09-2022 14:06-0500 Body weight 58.51 kg Marcus Mello DPM Work Phone: [facility] 07-09-2022 14:06-0500 Respiratory rate 18 /min Marcus Mello DPM Work Phone: [facility] 07-01-2022 10:04-0500 Body height 166.[address] Teagan Hall Work Phone: [facility] 07-01-2022 10:04-0500 Body mass index (BMI) [Ratio] 20.2 kg/m2 Dr. Teagan Hall Work Phone: [facility] 07-01-2022 10:04-0500 Body weight 55.[address] Teagan Hall Work Phone: [facility] 07-01-2022 10:04-0500 Diastolic blood pressure 60 mm[Hg] Dr. Teagan Hall Work Phone: [facility] 07-01-2022 10:04-0500 Heart rate 88 /min Dr. Teagan Hall Work Phone: [facility] 07-01-2022 10:04-0500 Respiratory rate 16 /min Dr. Teagan Hall Work Phone: [facility] 07-01-2022 10:04-0500 Systolic blood pressure 142 mm[Hg] Dr. Teagan Hall Work Phone: [facility] 06-24-2022 11:46-0500 Diastolic blood pressure 60 mm[Hg] Dr. Teagan Hall Work Phone: [facility] 06-24-2022 11:46-0500 Heart rate 75 /min Dr. Teagan Hall Work Phone: [facility] 06-24-2022 11:46-0500 Systolic blood pressure 128 mm[Hg] Dr. Teagan Hall Work Phone: [facility] 06-24-2022 10:38-0500 Body mass index (BMI) [Ratio] 20.3 kg/m2 Dr. Teagan Hall Work Phone: [facility] 06-24-2022 10:38-0500 Body temperature 97.6 [degF] Dr. Teagan Hall Work Phone: [facility] 06-24-2022 10:38-0500 Body weight 56.[address] Teagan Hall Work Phone: [facility] 06-24-2022 10:38-0500 Respiratory rate 16 /min Dr. Teagan Hall Work Phone: [facility] 06-24-2022 10:38-0500 SaO2% (BldA) [Mass fraction] 95 % Dr. Teagan Hall Work Phone: [facility] 06-05-2022 14:02-0500 Body height 165.1 cm Marcus Funmilayo DPM Work Phone: [facility] 06-05-2022 14:02-0500 Body weight 58.51 kg Marcus Funmilayo DPM Work Phone: [facility] 06-05-2022 14:02-0500 Respiratory rate 18 /min Marcus Funmilayo DPM Work Phone: [facility] 05-29-2022 13:26-0500 Body height 166.4 cm Marcus Funmilayo DPM Work Phone: [facility] 05-29-2022 13:26-0500 Body weight 58.51 kg Marcus Funmilayo DPM Work Phone: [facility] 05-29-2022 13:26-0500 Respiratory rate 20 /min Marcus Funmilayo DPM Work Phone: [facility] 05-05-2022 11:14-0500 Body height 165.1 cm Pst 1 [facility] 05-05-2022 11:14-0500 Body temperature 98.6 [degF] Pst 1 [facility] 05-05-2022 11:14-0500 Body weight 58.51 kg Pst 1 [facility] 05-05-2022 11:14-0500 Diastolic blood pressure 67 mm[Hg] Pst 1 [facility] 05-05-2022 11:14-0500 Heart rate 72 /min Pst 1 [facility] 05-05-2022 11:14-0500 Respiratory rate 16 /min Pst 1 [facility] 05-05-2022 11:14-0500 SaO2% (BldA) [Mass fraction] 99 % Pst 1 [facility] 05-05-2022 11:14-0500 Systolic blood pressure 121 mm[Hg] Pst 1 [facility] 04-16-2022 14:51-0500 Body height 166.[address] Teagan Hall Work Phone: [facility] 04-16-2022 14:46-0500 Body mass index (BMI) [Ratio] 20.9 kg/m2 Dr. Teagna Hall Work Phone: [facility] 04-16-2022 14:46-0500 Body temperature 98.2 [degF] Dr. Teagan Hall Work Phone: [facility] 04-16-2022 14:46-0500 Body weight 57.[address] Teagan Hall Work Phone: [facility] 04-16-2022 14:46-0500 Diastolic blood pressure 68 mm[Hg] Dr. Teagan Hall Work Phone: [facility] 04-16-2022 14:46-0500 Heart rate 73 /min Dr. Teagan Hall Work Phone: [facility] 04-16-2022 14:46-0500 Respiratory rate 16 /min Dr. Teagan Hall Work Phone: [facility] 04-16-2022 14:46-0500 SaO2% (BldA) [Mass fraction] 100 % Dr. Teagan Hall Work Phone: [facility] 04-16-2022 14:46-0500 Systolic blood pressure 123 mm[Hg] Dr. Teagan Hall Work Phone: [facility] 04-09-2022 11:38-0500 Body height 166.4 cm Marcus Mello DPM Work Phone: [facility] 04-09-2022 11:38-0500 Body temperature 98.2 [degF] Marcus Mello DPM Work Phone: [facility] 04-09-2022 11:38-0500 Body weight 56.7 kg Marcus Mello DPM Work Phone: [facility] 04-03-2022 10:57-0500 Body mass index (BMI) [Ratio] 20.5 kg/m2 Dr. Teagan Hall Work Phone: [facility] 04-03-2022 10:57-0500 Body temperature 97.6 [degF] Dr. Teagan Hall Work Phone: [facility] 04-03-2022 10:57-0500 Body weight 56.[address] Teagan Hall Work Phone: [facility] 04-03-2022 10:57-0500 Diastolic blood pressure 65 mm[Hg] Dr. Teagan Hall Work Phone: [facility] 04-03-2022 10:57-0500 Heart rate 72 /min Dr. Teagan Hall Work Phone: [facility] 04-03-2022 10:57-0500 Respiratory rate 16 /min Dr. Teagan Hall Work Phone: [facility] 04-03-2022 10:57-0500 SaO2% (BldA) [Mass fraction] 99 % Dr. Teagan Hall Work Phone: [facility] 04-03-2022 10:57-0500 Systolic blood pressure 115 mm[Hg] Dr. Teagan Hall Work Phone: [facility] 03-18-2022 09:45-0500 Body height 167.6 cm Marcus Mello DPM Work Phone: [facility] 03-18-2022 09:45-0500 Body weight 67.13 kg Marcus Mello DPM Work Phone: [facility] 03-18-2022 09:45-0500 Respiratory rate 17 /min Marcus Mello DPM Work Phone: [facility] 03-06-2022 11:11-0400 Body temperature 97.5 [degF] Dr. Teagan Hall Work Phone: [facility] 03-06-2022 11:11-0400 Diastolic blood pressure 55 mm[Hg] Dr. Teagan Hall Work Phone: [facility] 03-06-2022 11:11-0400 Heart rate 80 /min Dr. Teagan Hall Work Phone: [facility] 03-06-2022 11:11-0400 SaO2% (BldA) [Mass fraction] 98 % Dr. Teagan Hall Work Phone: [facility] 03-06-2022 11:11-0400 Systolic blood pressure 129 mm[Hg] Dr. Teagan Hall Work Phone: [facility] 02-06-2022 12:15-0400 Body temperature 97.6 [degF] Dr. Teagan Hall Work Phone: [facility] 02-06-2022 12:15-0400 Diastolic blood pressure 57 mm[Hg] Dr. Teagan Hall Work Phone: [facility] 02-06-2022 12:15-0400 Heart rate 72 /min Dr. Teagan Hall Work Phone: [facility] 02-06-2022 12:15-0400 Respiratory rate 16 /min Dr. Teagan Hall Work Phone: [facility] 02-06-2022 12:15-0400 SaO2% (BldA) [Mass fraction] 100 % Dr. Teagan Hall Work Phone: [facility] 02-06-2022 12:15-0400 Systolic blood pressure 138 mm[Hg] Dr. Teagan Hall Work Phone: [facility] 02-06-2022 10:52-0400 Body height 166.[address] Teagan Hall Work Phone: [facility] Work Phone: 02-06-2022 10:52-0400 Body mass index (BMI) [Ratio] 21.3 kg/m2 Dr. Teagan Hall Work Phone: [facility] 02-06-2022 10:52-0400 Body weight 58.[address] Teagan Hall Work Phone: [facility] 01-09-2022 11:16-0400 Body height 166.[address] Teagan Hall Work Phone: [facility] Work Phone: 01-09-2022 11:16-0400 Body mass index (BMI) [Ratio] 21.3 kg/m2 Dr. Teagan Hall Work Phone: [facility] Work Phone: 01-09-2022 11:16-0400 Body temperature 96.4 [degF] Dr. Taegan Hall Work Phone: [facility] Work Phone: 01-09-2022 11:16-0400 Body weight 58.[address] Teagan Hall Work Phone: [facility] Work Phone: 01-09-2022 11:16-0400 Diastolic blood pressure 59 mm[Hg] Dr. Teagan Hall Work Phone: [facility] Work Phone: 01-09-2022 11:16-0400 Heart rate 64 /min Dr. Teagan Hall Work Phone: [facility] Work Phone: 01-09-2022 11:16-0400 Respiratory rate 16 /min Dr. Teagan Hall Work Phone: [facility] Work Phone: 01-09-2022 11:16-0400 SaO2% (BldA) [Mass fraction] 98 % Dr. Teagan Hall Work Phone: [facility] Work Phone: 01-09-2022 11:16-0400 Systolic blood pressure 119 mm[Hg] Dr. Teagan Hall Work Phone: [facility] Work Phone: 12-24-2021 13:36-0400 Body mass index (BMI) [Ratio] 21.4 kg/m2 Dr. Teagan Hall Work Phone: [facility] Work Phone: 12-24-2021 13:36-0400 Body weight 59.[address] Teagan Hall Work Phone: [facility] Work Phone: 12-24-2021 13:36-0400 Diastolic blood pressure 60 mm[Hg] Dr. Teagan Hall Work Phone: [facility] Work Phone: 12-24-2021 13:36-0400 Heart rate 64 /min Dr. Teagan Hall Work Phone: [facility] Work Phone: 12-24-2021 13:36-0400 Respiratory rate 16 /min Dr. Teagan Hall Work Phone: [facility] Work Phone: 12-24-2021 13:36-0400 Systolic blood pressure 130 mm[Hg] Dr. Teagan Hall Work Phone: [facility] Work Phone: 12-12-2021 12:17-0400 Diastolic blood pressure 43 mm[Hg] Dr. Teagan Hall Work Phone: [facility] Work Phone: 12-12-2021 12:17-0400 Heart rate 57 /min Dr. Teagan Hall Work Phone: [facility] Work Phone: 12-12-2021 12:17-0400 Respiratory rate 16 /min Dr. Teagan Hall Work Phone: [facility] Work Phone: 12-12-2021 12:17-0400 SaO2% (BldA) [Mass fraction] 98 % Dr. Teagan Hall Work Phone: [facility] Work Phone: 12-12-2021 12:17-0400 Systolic blood pressure 135 mm[Hg] Dr. Teagan Hall Work Phone: [facility] Work Phone: 12-12-2021 11:09-0400 Body mass index (BMI) [Ratio] 21.3 kg/m2 Dr. Teagan Hall Work Phone: [facility] Work Phone: 12-12-2021 11:09-0400 Body temperature 97.5 [degF] Dr. Teagan Hall Work Phone: [facility] Work Phone: 12-12-2021 11:09-0400 Body weight 58.[address] Teagan Hall Work Phone: [facility] Work Phone: 11-14-2021 10:53-0400 Body height 166.37 cm [facility] Work Phone: 11-14-2021 10:53-0400 Body mass index (BMI) [Ratio] 21.3 kg/m2 [facility] Work Phone: 11-14-2021 10:53-0400 Body temperature 96.6 [degF] [facility] Work Phone: 11-14-2021 10:53-0400 Body weight 58.96 kg [facility] Work Phone: 11-14-2021 10:53-0400 Diastolic blood pressure 53 mm[Hg] [facility] Work Phone: 11-14-2021 10:53-0400 Heart rate 74 /min [facility] Work Phone: 07-15-2022 10:53-0400 Respiratory rate 16 /min [facility] Work Phone: 11-14-2021 10:53-0400 SaO2% (BldA) [Mass fraction] 98 % [facility] Work Phone: 11-14-2021 10:53-0400 Systolic blood pressure 135 mm[Hg] [facility] Work Phone: 10-17-2021 12:08-0400 Body temperature 96.8 [degF] [facility] Work Phone: 10-17-2021 12:08-0400 Diastolic blood pressure 66 mm[Hg] [facility] Work Phone: 10-17-2021 12:08-0400 Heart rate 66 /min [facility] Work Phone: 10-17-2021 12:08-0400 Respiratory rate 16 /min [facility] Work Phone: 10-17-2021 12:08-0400 SaO2% (BldA) [Mass fraction] 100 % [facility] Work Phone: 10-17-2021 12:08-0400 Systolic blood pressure 127 mm[Hg] [facility] Work Phone: 10-17-2021 10:55-0400 Body weight 61.53 kg [facility] Work Phone: 09-19-2021 11:15-0400 Body height 165.1 cm [facility] Work Phone: 09-19-2021 11:15-0400 Body temperature 97.5 [degF] [facility] Work Phone: 09-19-2021 11:15-0400 Diastolic blood pressure 49 mm[Hg] [facility] Work Phone: 09-19-2021 11:15-0400 Heart rate 65 /min [facility] Work Phone: 09-19-2021 11:15-0400 Respiratory rate 16 /min [facility] Work Phone: 09-19-2021 11:15-0400 SaO2% (BldA) [Mass fraction] 100 % [facility] Work Phone: 09-19-2021 11:15-0400 Systolic blood pressure 121 mm[Hg] [facility] Work Phone: 08-20-2021 12:34-0400 Diastolic blood pressure 74 mm[Hg] Dr. Teagan Hall Work Phone: [facility] Work Phone: 08-20-2021 12:34-0400 Heart rate 70 /min Dr. Teagan Hall Work Phone: [facility] Work Phone: 08-20-2021 12:34-0400 Respiratory rate 16 /min Dr. Teagan Hall Work Phone: [facility] Work Phone: 08-20-2021 12:34-0400 SaO2% (BldA) [Mass fraction] 98 % Dr. Teagan Hall Work Phone: [facility] Work Phone: 08-20-2021 12:34-0400 Systolic blood pressure 149 mm[Hg] Dr. Teagan Hall Work Phone: [facility] Work Phone: 08-20-2021 11:15-0400 Body height 165.[address] Teagan Hall Work Phone: [facility] Work Phone: 08-20-2021 11:15-0400 Body mass index (BMI) [Ratio] 22.4 kg/m2 Dr. Teagan Hall Work Phone: [facility] Work Phone: 08-20-2021 11:15-0400 Body temperature 98.3 [degF] Dr. Teagan Hall Work Phone: [facility] Work Phone: 08-20-2021 11:15-0400 Body weight 61.[address] Teagan Hall Work Phone: [facility] Work Phone: 07-23-2021 13:51-0400 Body temperature 97 [degF] Dr. Teagan Hall Work Phone: [facility] Work Phone: 07-23-2021 13:51-0400 Diastolic blood pressure 78 mm[Hg] Dr. Teagan Hall Work Phone: [facility] Work Phone: 07-23-2021 13:51-0400 Heart rate 65 /min Dr. Teagan Hall Work Phone: [facility] Work Phone: 07-23-2021 13:51-0400 Respiratory rate 16 /min Dr. Teagan Hall Work Phone: [facility] Work Phone: 07-23-2021 13:51-0400 SaO2% (BldA) [Mass fraction] 96 % Dr. Teagan Hall Work Phone: [facility] Work Phone: 07-23-2021 13:51-0400 Systolic blood pressure 142 mm[Hg] Dr. Teagan Hall Work Phone: [facility] Work Phone: 07-23-2021 12:59-0400 Body height 165.[address] Teagan Hall Work Phone: [facility] [facility] Work Phone: 06-25-2021 11:13-0500 Body mass index (BMI) [Ratio] 21.9 kg/m2 [facility] Work Phone: 06-25-2021 11:13-0500 Body temperature 97.3 [degF] [facility] Work Phone: 06-25-2021 11:13-0500 Body weight 59.87 kg [facility] [place] Work Phone: 06-25-2021 11:13-0500 Diastolic blood pressure 51 mm[Hg] [facility] Work Phone: 06-25-2021 11:13-0500 Heart rate 64 /min [facility] Work Phone: 06-25-2021 11:13-0500 Respiratory rate 16 /min [facility] Work Phone: 06-25-2021 11:13-0500 SaO2% (BldA) [Mass fraction] 100 % [facility] Work Phone: 06-25-2021 11:13-0500 Systolic blood pressure 112 mm[Hg] [facility] Work Phone: 06-25-2021 10:13-0500 Body mass index (BMI) [Ratio] 21.9 kg/m2 Dr. Teagan Hall Work Phone: [facility] Work Phone: 06-25-2021 10:13-0500 Body temperature 97.3 [degF] Dr. Teagan Hall Work Phone: [facility] Work Phone: 06-25-2021 10:13-0500 Body weight 59.[address] Teagan Hall Work Phone: [facility] Work Phone: 06-25-2021 10:13-0500 Diastolic blood pressure 51 mm[Hg] Dr. Teagan Hall Work Phone: [facility] Work Phone: 06-25-2021 10:13-0500 Heart rate 64 /min Dr. Teagan Hall Work Phone: [facility] Work Phone: 06-25-2021 10:13-0500 Respiratory rate 16 /min Dr. Teagan Hall Work Phone: [facility] Work Phone: 06-25-2021 10:13-0500 SaO2% (BldA) [Mass fraction] 100 % Dr. Teagan Hall Work Phone: [facility] Work Phone: 06-25-2021 10:13-0500 Systolic blood pressure 112 mm[Hg] Dr. Teagan Hall Work Phone: [facility] Work Phone: 05-28-2021 11:32-0500 Body temperature 96.8 [degF] Dr. Teagan Hall Work Phone: [facility] Work Phone: 05-28-2021 11:32-0500 Diastolic blood pressure 50 mm[Hg] Dr. Teagan Hall Work Phone: [facility] Work Phone: 05-28-2021 11:32-0500 Heart rate 70 /min Dr. Teagan Hall Work Phone: [facility] Work Phone: 05-28-2021 11:32-0500 Systolic blood pressure 126 mm[Hg] Dr. Teagan Hall Work Phone: [facility] Work Phone: 05-28-2021 10:38-0500 Respiratory rate 16 /min Dr. Teagan Hall Work Phone: [facility] Work Phone: 05-28-2021 10:38-0500 SaO2% (BldA) [Mass fraction] 98 % Dr. Teagan Hall Work Phone: [facility] Work Phone: 05-12-2021 09:56-0500 Body mass index (BMI) [Ratio] 22.1 kg/m2 Dr. Teagan Hall Work Phone: [facility] Work Phone: 05-12-2021 09:56-0500 Body weight 60.[address] Teagan Hall Work Phone: [facility] Work Phone: 05-12-2021 09:56-0500 Diastolic blood pressure 73 mm[Hg] Dr. Teagan Hall Work Phone: [facility] Work Phone: 05-12-2021 09:56-0500 Heart rate 80 /min Dr. Teagan Hall Work Phone: [facility] Work Phone: 05-12-2021 09:56-0500 Respiratory rate 18 /min Dr. Teagan Hall Work Phone: [facility] Work Phone: 05-12-2021 09:56-0500 Systolic blood pressure 137 mm[Hg] Dr. Teagan Hall Work Phone: [facility] Work Phone: 04-30-2021 11:16-0500 Body temperature 97.3 [degF] Dr. Teagan Hall Work Phone: [facility] Work Phone: 04-30-2021 11:16-0500 Diastolic blood pressure 60 mm[Hg] Dr. Teagan Hall Work Phone: [facility] Work Phone: 04-30-2021 11:16-0500 Heart rate 66 /min Dr. Teagan Hall Work Phone: [facility] Work Phone: 04-30-2021 11:16-0500 Respiratory rate 16 /min Dr. Teagan Hall Work Phone: [facility] Work Phone: 04-30-2021 11:16-0500 SaO2% (BldA) [Mass fraction] 99 % Dr. Teagan Hall Work Phone: [facility] Work Phone: 04-30-2021 11:16-0500 Systolic blood pressure 124 mm[Hg] Dr. Teagan Hall Work Phone: [facility] Work Phone: 04-30-2021 09:51-0500 Body mass index (BMI) [Ratio] 22.4 kg/m2 Dr. Teagan Hall Work Phone: [facility] Work Phone: 04-30-2021 09:51-0500 Body weight 61.[address] Teagan Hall Work Phone: [facility] Work Phone: 04-17-2021 13:19-0500 Body mass index (BMI) [Ratio] 22.3 kg/m2 Dr. Teagan Hall Work Phone: [facility] Work Phone: 04-17-2021 13:19-0500 Body temperature 98.4 [degF] Dr. Teagan Hall Work Phone: [facility] Work Phone: 04-17-2021 13:19-0500 Body weight 60.[address] Teagan Hall Work Phone: [facility] Work Phone: 04-17-2021 13:19-0500 Diastolic blood pressure 79 mm[Hg] Dr. Teagan Hall Work Phone: [facility] Work Phone: 04-17-2021 13:19-0500 Heart rate 74 /min Dr. Teagan Hall Work Phone: [facility] Work Phone: 04-17-2021 13:19-0500 Respiratory rate 17 /min Dr. Teagan Hall Work Phone: [facility] Work Phone: 04-17-2021 13:19-0500 SaO2% (BldA) [Mass fraction] 98 % Dr. Teagan Hall Work Phone: [facility] Work Phone: 04-17-2021 13:19-0500 Systolic blood pressure 147 mm[Hg] Dr. Teagan Hall Work Phone: [facility] Work Phone: 04-02-2021 11:29-0500 Diastolic blood pressure 52 mm[Hg] Dr. Teagan Hall Work Phone: [facility] Work Phone: 04-02-2021 11:29-0500 Heart rate 64 /min Dr. Teagan Hall Work Phone: [facility] Work Phone: 04-02-2021 11:29-0500 SaO2% (BldA) [Mass fraction] 100 % Dr. Teagan Hall Work Phone: [facility] Work Phone: 04-02-2021 11:29-0500 Systolic blood pressure 138 mm[Hg] Dr. Teagan Hall Work Phone: [facility] Work Phone: 04-02-2021 10:04-0500 Body mass index (BMI) [Ratio] 22.4 kg/m2 Dr. Teagan Hall Work Phone: [facility] Work Phone: 04-02-2021 10:04-0500 Body temperature 97.5 [degF] Dr. Teagan Hall Work Phone: [facility] Work Phone: 04-02-2021 10:04-0500 Body weight 61.[address] Teagan Hall Work Phone: [facility] Work Phone: 04-02-2021 10:04-0500 Respiratory rate 16 /min Dr. Teagan Hall Work Phone: [facility] Work Phone: 04-18-2020 11:28-0500 Body mass index (BMI) [Ratio] 23.1 kg/m2 Dr. Teagan Hall Work Phone: [facility] 04-18-2020 11:28-0500 Body temperature 97.4 [degF] Dr. Teagan Hall Work Phone: [facility] 04-18-2020 11:28-0500 Body weight 64.[address] Teagan Hall Work Phone: [facility] 04-18-2020 11:28-0500 Diastolic blood pressure 69 mm[Hg] Dr. Teagan Hall Work Phone: [facility] 04-18-2020 11:28-0500 Heart rate 72 /min Dr. Teagan Hall Work Phone: [facility] 04-18-2020 11:28-0500 Respiratory rate 20 /min Dr. Teagan Hall Work Phone: [facility] 04-18-2020 11:28-0500 SaO2% (BldA) [Mass fraction] 97 % Dr. Teagan Hall Work Phone: [facility] 04-18-2020 11:28-0500 Systolic blood pressure 114 mm[Hg] Dr. Teagan Hall Work Phone: [facility] 04-18-2020 10:28-0500 Body mass index (BMI) [Ratio] 23.1 kg/m2 Dr. Teagan Hall Work Phone: [facility] Work Phone: 04-18-2020 10:28-0500 Body temperature 97.4 [degF] Dr. Teagan Hall Work Phone: [facility] Work Phone: 04-18-2020 10:28-0500 Body weight 64.[address] Teagan Hall Work Phone: [facility] Work Phone: 04-18-2020 10:28-0500 Diastolic blood pressure 69 mm[Hg] Dr. Teagan Hall Work Phone: [facility] Work Phone: 04-18-2020 10:28-0500 Heart rate 72 /min Dr. Teagan Hall Work Phone: [facility] Work Phone: 04-18-2020 10:28-0500 Respiratory rate 20 /min Dr. Teagan Hall Work Phone: [facility] Work Phone: 04-18-2020 10:28-0500 SaO2% (BldA) [Mass fraction] 97 % Dr. Teagan Hall Work Phone: [facility] Work Phone: 04-18-2020 10:28-0500 Systolic blood pressure 114 mm[Hg] Dr. Teagan Hall Work Phone: [facility] Work Phone: Encounters Encounter Date Encounter Type Care Provider Facility Start: 12-27-2024 End: 12-27-2024 Holli JOEL -[facility] Work Phone: Start: 12-27-2024 End: 12-27-[address] Teagan Hall MD Work Phone: -[facility] Start: 12-22-2024 End: 12-22-[address] Teagan Hall MD Work Phone: -[facility] Start: 12-22-2024 End: 12-22-2024 Dr. Leena Serra MD -Laboratory [facility] Work Phone: Start: 12-22-2024 End: 12-22-2024 ambulatory Macie Anirudh Facility:[facility] Start: 12-19-2024 End: 12-19-[address] Elias Arevalo MD -[facility] Start: 12-19-2024 End: 12-19-2024 Shaila JOEL -[facility] Work Phone: Start: 12-19-2024 End: 12-19-[address] Teagan Hall MD Work Phone: -[facility] Start: 12-06-2024 Non-patient / Non-visit Dr. Ajith lai MD [facility] Work Phone: Start: 12-06-2024 Dr. Ajith Quiñones MD -[facility] Work Phone: Start: 12-05-2024 Non-patient / Non-visit Dr. Ajith lai MD [facility] Work Phone: Start: 12-05-2024 Dr. Ajith Quiñones MD -[facility] Work Phone: Start: 12-05-2024 Non-patient / Non-visit [facility]. Mariia [facility]OPES [facility] Start: 12-05-2024 Dr. Elias Arevalo MD [facility] Start: 12-04-2024 Non-patient / Non-visit [facility] Ballesteros [facility] Work Phone: Start: 12-04-2024 Non-patient / Non-visit Dr. Rojas [facility] Start: 12-04-2024 End: 12-04-[address] Teagan Hall MD Work Phone: [facility] Start: 12-04-2024 End: 12-04-2024 Patient encounter procedure Iza Pagan [facility] Work Phone: Start: 12-04-2024 ambulatory Marga Butcher Facility:[facility] Start: 12-04-2024 Non-patient / Non-visit Dr. Michael powell MD -[facility] Start: 12-04-2024 End: 12-04-2024 Dr. Elias Arevalo [facility] Work Phone: Start: 12-03-2024 Non-patient / Non-visit Dr. Mariia LOPES [facility] Start: 12-03-2024 Dr. Elias Arevalo MD [facility] Start: 12-03-2024 Non-patient / Non-visit Dr. Marga dee MD [facility] Work Phone: Start: 12-03-2024 Dr. Marga Butcher MD [facility] Work Phone: Start: 12-02-2024 ambulatory Sean Thornton Fac ility:[facility] Start: 12-02-2024 End: 12-06-2024 Evaluation and management of inpatient [facility] Work [facility]: Start: 12-02-2024 Non-patient / Non-visit Dr. Marga dee MD [facility] Work Phone: Start: 12-02-2024 Dr. Marga Butcher MD [facility] Work Phone: Start: 12-02-2024 End: 12-06-2024 Evaluation and management of inpatient Dr. Ajith Quiñones MD -[facility] Work Phone: Start: 12-02-2024 End: 12-06-2024 Dr. Ajith Quiñones MD [facility] Work Phone: Start: 12-01-2024 ambulatory Marga Butcher Facility:[facility] Start: 12-01-2024 Non-patient / Non-visit Dr. Marga dee MD [facility] Work Phone: Start: 12-01-2024 Joselyn Brody MD [facility] Work Phone: Start: 11-30-2024 ambulatory Sean Thornton Fac ility:[facility] Start: 11-30-2024 Evaluation and manag ement of inpatient Dr. Sena Thornton DO [facility] 3 Work Phone: Start: 11-30-2024 Non-patient / Non-visit Dr. Ballesteros [facility] Work Phone: Start: 11-30-[address] Teagan Hall MD Work Phone: -Medical Surgical 3 Start: 11-30-2024 Dr. Sean Thornton [facility] Work Phone: Start: 10-23-2024 End: 10-23-[address] Matteo Jonas MD -[facility] Work Phone: Start: 10-23-2024 End: 10-23-2024 Dr. Matteo Jonas MD -[facility] Work Phone: Start: 10-23-2024 End: 10-23-[address] Teagan Hall MD Work Phone: [facility] Work Phone: Start: 10-20-2024 End: 10-20-[address] Teagan Hall MD Work Phone: -[facility] Start: 10-20-2024 End: 10-20-[address] Elias Arevalo MD -[facility] Work Phone: Start: 10-20-2024 End: 10-20-2024 Dr. Elias Arevalo MD -[facility] Work Phone: Start: 10-16-2024 End: 10-16-[address] Teagan Hall MD Work Phone: [facility] Work Phone: Start: 10-16-2024 End: 10-16-[address] Matteo Jonas MD -[facility] Work Phone: Start: 10-16-2024 End: 10-16-2024 Dr. Matteo Jonas MD -[facility] [place] Work Phone: Start: 10-16-2024 End: 10-16-2024 ambulatory Leena Serra Facility:[facility] Start: 09-29-2024 End: 09-29-[address] Teagan Hall MD Work Phone: [facility] Work Phone: Start: 09-29-2024 End: 09-29-[address] Leena Serra MD -[facility] [place] Work Phone: Start: 09-29-2024 End: 09-29-2024 Dr. Leena Serra MD -Laboratory [facility] Work Phone: Start: 09-29-2024 End: 09-29-2024 ambulatory Leena Serra Facility:[facility] Start: 09-12-2024 End: 09-12-[address] Elias Arevalo MD -[facility] Work Phone: Start: 09-12-2024 End: 09-12-2024 Dr. Elias Arevalo MD -[facility] Work Phone: Start: 09-12-2024 End: 09-12-[address] Teagan Hall MD Work Phone: [facility] Work Phone: Start: 07-28-2024 End: 07-28-[address] Teagan Hall MD Work Phone: [facility] Work Phone: Start: 07-28-2024 End: 07-28-2024 Patient encounter procedure Sharad Londono [employer] Work Phone: Start: 07-28-2024 End: 07-28-2024 ambulatory Sharad Londono NP Facility:[facility] Start: 07-23-2024 End: 07-23-2024 Emergency department patient visit Dr. Teagan Hall MD Work Phone: -Emergency Department Work Phone: Start: 07-22-2024 End: 07-22-[address] Teagan Hall MD Work Phone: [facility] Work Phone: Start: 07-22-2024 End: 07-22-2024 Patient encounter procedure Holli JOEL -Laboratory Work Phone: Start: 07-21-2024 End: 07-22-2024 ambulatory Teagan Hall Facility:[facility] Start: 07-21-2024 End: 07-21-[address] Elias Arevalo MD -[facility] Work Phone: Start: 07-04-2024 End: 07-04-[address] Teagan Hall MD Work Phone: [facility] Work Phone: Start: 07-04-2024 End: 07-04-[address] Tripp Childress MD -Laboratory, [place] Work Phone: Start: 07-04-2024 End: 07-04-2024 ambulatory Absaraka Msedel Facility:[facility] Start: 06-14-2024 End: 06-14-[address] Tripp Childress MD -[facility] Work Phone: Start: 06-14-2024 End: 06-14-2024 ambulatory Tripp [facility] Facility:[facility] Start: 06-02-2024 End: 06-02-[address] Leena Serra MD -Laboratory, [place] Work Phone: Start: 06-02-2024 End: 06-02-2024 ambulatory Absaraka Miedel Facility:[facility] Start: 05-01-2024 End: 05-01-2024 Patient encounter procedure Holli JOEL -[facility] Work Phone: Start: 05-01-2024 End: 05-01-2024 ambulatory Teagan Hall Facility:[facility] Start: 04-21-2024 End: 04-21-2024 ambulatory Teagan Hall Facility:[facility] Start: 04-21-2024 End: 04-21-[address] Elias Arevalo MD -[facility] Work Phone: Start: 02-15-2024 End: 02-15-2024 ambulatory Teagan Hall Facility:[facility] Start: 02-01-2024 End: 02-01-2024 ambulatory Leenajulia Leijaandrew Facility:[facility] Start: 01-21-2024 End: 01-21-2024 ambulatory Teagan Hall Facility:[facility] Start: 01-20-2024 End: 01-20-2024 ambulatory Teagan Hall Facility:[facility] Start: 08-24-2023 Non-patient / Non-visit Dr. Marge Hall Work Phone: [facility] Start: 08-24-2023 End: 08-24-[address] Teagan Hall Work Phone: [facility] Work Phone: Start: 08-24-2023 End: 08-24-[address] Teagan Hall Work Phone: [facility] Work Phone: Start: 08-23-2023 End: 08-23-[address] Teagan Hall Work Phone: [facility] Work Phone: Start: 08-23-2023 End: 08-23-[address] Teagan Hall Work Phone: [facility] Work Phone: Start: 08-03-2023 Telephone encounter Patito Gonzalez DO Work Phone: [facility] Start: 08-03-2023 End: 08-03-2023 ambulatory TEAGAN HALL [facility] Start: 08-03-2023 End: 08-03-2023 Office outpatient visit 15 minutes Patito Gonzalez DO Work Phone: [facility]monary [facility] Comment on above: Pulmonary lesion (Pr imary Dx); Pleural effusion Start: 07-19-2023 End: 07-19-[address] Teagan Hall Work Phone: [facility] Work Phone: Start: 07-19-2023 End: 07-19-[address] Teagan Hall Work Phone: [facility] Work Phone: Start: 07-16-2023 End: 07-16-[address] Teagan Hall Work Phone: [facility] Work Phone: Start: 07-12-2023 End: 07-12-[address] Teagan Hall Work Phone: [facility] Work Phone: Start: 07-12-[address] Teagan castelan Work Phone: [facility] Start: 07-05-2023 End: 07-05-[address] Teagan Hall Work Phone: [facility] Work Phone: Start: 07-05-2023 End: 07-05-[address] Teagan Hall Work Phone: [facility]-Cat Scan, [facility] Work Phone: Start: 06-30-2023 Telephone encounter Ladi Sharp [facility] Pulmonary and Sleep Medicine Comment on above: Care Coordination Start: 06-23-2023 End: 06-23-[address] Teagan Hall Work Phone: [facility] Work Phone: Start: 06-23-2023 End: 06-23-[address] Teagan Hall Work Phone: [facility]-Medical Out Work Phone: Start: 05-26-2023 End: 05-26-[address] Teagan Hall Work Phone: [facility] Work Phone: Start: 05-26-2023 End: 05-26-[address] Teagan Hall Work Phone: [facility] Work Phone: Start: 05-13-2023 Non-patient / Non-visit Dr. Marge Hall Work Phone: [facility] Start: 05-12-2023 Non-patient / Non-visit Dr. Marge Hall Work Phone: [facility] Start: 05-12-2023 End: 05-12-[address] Teagan Hall Work Phone: [facility] Work Phone: Start: 05-12-2023 End: 05-12-[address] Teagan Hall Work Phone: [facility]-Pulmonary Services/Neurology Work Phone: Start: 05-11-2023 End: 05-11-[address] Teagan Hall Work Phone: [facility] Work Phone: Start: 05-11-2023 End: 05-11-[address] Teagan Hall Work Phone: [facility]-Pulmonary Services/Neurology Work Phone: Start: 05-07-2023 End: 05-07-2023 Non-patient / Non-visit Dr. Teagan Hall Work Phone: [facility] Work Phone: Start: 05-07-2023 End: 05-07-2023 Admission to same day surgery center Dr. Teagan Hall Work Phone: [facility]-[employer]/Special Procedures Work Phone: Start: 05-07-2023 End: 05-07-[address] Teagan Hall Work Phone: [facility] Work Phone: Start: 05-04-2023 End: 05-04-[address] Teagan Hall Work Phone: [facility] Work Phone: Start: 05-04-2023 End: 05-04-[address] Teagan Hall Work Phone: [facility]-Laboratory, [facility] Start: 05-04-2023 End: 05-04-[address] Teagan Hall Work Phone: [facility]-Pulmonary Medicine [facility] Work Phone: Start: 04-08-2023 Non-patient / Non-visit Dr. Marge Hall Work Phone: [facility] Start: 04-08-2023 End: 04-08-[address] Teagan Hall Work Phone: [facility] Work Phone: Start: 04-08-2023 End: 04-08-[address] Teagan Hall Work Phone: [facility]-Ultrasound, [facility] Work Phone: Start: 04-08-2023 End: 04-08-2023 Dr. Teagan Hall Work Phone: [facility]-Ultrasound, [facility] Work Phone: Start: 04-07-2023 End: 04-07-[address] Teagan Hall Work Phone: [facility] Work Phone: Start: 04-07-2023 End: 04-07-[address] Teagan Hall Work Phone: [facility] Work Phone: Start: 04-07-2023 End: 04-07-2023 Dr. Teagan Hall Work Phone: [facility] Work Phone: Start: 04-07-2023 End: 04-07-[address] Teagan Hall Work Phone: [facility] Work Phone: Start: 04-07-2023 End: 04-07-2023 Dr. Teagan Hall Work Phone: [facility] Work Phone: Start: 04-05-2023 End: 04-05-[address] Teagan Hall Work Phone: [facility] Work Phone: Start: 04-05-2023 End: 04-05-[address] Teagan Hall Work Phone: [facility] Work Phone: Start: 04-05-2023 End: 04-05-2023 Dr. Teagan Hall Work Phone: [facility] Work Phone: Start: 04-03-2023 End: 04-03-[address] Teagan Hall Work Phone: [facility] Work Phone: Start: 03-29-2023 End: 03-29-[address] Teagan Hall Work Phone: [facility] Work Phone: Start: 03-29-2023 End: 03-29-2023 Dr. [facility] Work Phone: Start: 03-17-2023 End: 03-17-[address] Teagan Hall Work Phone: [facility] Work Phone: Start: 03-17-2023 End: 03-17-[address] Teagan Hall Work Phone: [facility]-Medical Out Work Phone: Start: 03-17-2023 End: 03-17-2023 Dr. Teagan Hall Work Phone: [facility] Work Phone: Start: 03-04-2023 End: 03-04-[address] Te[facility] Hall [facility] Work Phone: Start: 03-04-2023 End: 03-04-2023 Dr. Teagan Hall Work Phone: [facility] Work Phone: Start: 02-25-2023 End: 02-25-[address] [facility] Work Phone: Start: 02-25-2023 End: 02-25-2023 Dr. Teagan Hall [facility] Work Phone: Start: 02-25-2023 Non-patient / Non-visit Dr. Marge Hall Work Phone: [facility] Start: 02-25-2023 Dr. Teagan orellana Work Phone: [facility] Start: 02-25-2023 Non-patient / Non-visit Dr. Marge Hall Work Phone: [facility] Work Phone: Start: 02-25-2023 Dr. Teagan orellana Work Phone: [facility] Work Phone: Start: 02-24-2023 Non-patient / Non-visit Dr. Marge Hall Work Phone: [facility] Start: 02-24-2023 Dr. Teagan orellana Work Phone: [facility] Start: 02-23-2023 Non-patient / Non-visit Dr. Marge Hall Work Phone: [facility] Work Phone: Start: 02-23-2023 End: 02-25-2023 Evaluation and management of inpatient Dr. Teagan Hall Work Phone: [facility] Work Phone: Start: 02-23-2023 End: 02-25-2023 Dr. Teagan Hall Work Phone: [facility]-Intensive Care Unit Work Phone: Start: 02-22-2023 Non-patient / Non-visit Dr. Marge Hall Work Phone: [facility] Start: 02-22-2023 End: 02-22-[address] Teagan Hall Work Phone: [facility] Work Phone: Start: 02-22-2023 End: 02-22-[address] Teagan Hall Work Phone: [facility], [facility] Work Phone: Start: 02-22-2023 End: 02-22-2023 Dr. Teagan Hall Work Phone: [facility] Start: 02-17-2023 End: 02-17-[address] Teagan Hall Work Phone: [facility] Work Phone: Start: 02-17-2023 End: 02-17-[address] Teagan Hall Work Phone: [facility] Out Work Phone: Start: 02-17-2023 End: 02-17-2023 Dr. Teagan Hall Work Phone: [facility] Work Phone: Start: 02-11-2023 End: 02-11-[address] Teagan Hall Work Phone: [facility] Work Phone: Start: 02-11-2023 End: 02-11-2023 Dr. Teagan Hall Work Phone: [facility] Work Phone: Start: 02-08-2023 Non-patient / Non-visit Dr. Marge Hall Work Phone: [facility] Work Phone: Start: 02-08-2023 Dr. Teagan orellana Work Phone: [facility] Work Phone: Start: 02-04-2023 End: 02-04-[address] Teagan Hall Work Phone: [facility] Work Phone: Start: 02-04-2023 End: 02-04-2023 Dr. Teagan Hall Work Phone: [facility] Work Phone: Start: 02-04-2023 End: 02-04-[address] Teagan Hall Work Phone: [facility] Work Phone: Start: 02-04-2023 End: 02-04-2023 Dr. Teagan Hall Work Phone: [facility] Work Phone: Start: 01-27-2023 Non-patient / Non-visit Dr. Marge Hall Work Phone: [facility] Start: 01-27-2023 Dr. Teagan orellana Work Phone: [facility] Start: 01-27-2023 End: 01-27-2023 Emergency department patient [facility] Teagan [facility] Work [facility]: Start: 01-27-2023 End: 01-27-2023 Dr. Teagan Hall [facility] Work [facility]: Start: 01-25-2023 End: 01-25-[address] Teagan Hall Work Phone: [facility] Work Phone: Start: 01-25-2023 End: 01-25-2023 Dr. Teagan Hall Work Phone: [facility] Work Phone: Start: 01-25-2023 End: 01-25-[address] Teagan Hall Work Phone: [facility] Work Phone: Start: 01-25-2023 End: 01-25-2023 Dr. Teagan Hall Work Phone: [facility] Work Phone: Start: 01-20-2023 End: 01-20-[address] Teagan Hall Work Phone: [facility] Work Phone: Start: 01-20-2023 End: 01-20-[address] Te[facility] Hall [facility] Work [facility]: Start: 01-20-2023 End: 01-20-2023 Dr. Teagan Hall [facility] Work [facility]: Start: 01-17-2023 End: 01-18-2023 Emergency department patient visit Dr. Teagan Hall Work Phone: [facility]Emergency Department Work Phone: Start: 01-17-2023 End: 01-18-2023 Dr. Teagan Hall Work Phone: [facility]Emer[facility] Work Phone: Start: 01-15-2023 End: 01-15-[address] Teagan Hall Work Phone: [facility] Work Phone: Start: 01-15-2023 End: 01-15-[address] Te[facility] Hall [facility] Work Phone: Start: 01-15-2023 End: 01-15-2023 Dr. Teagan Hall [facility] Phone[facility] Work Phone: Start: 01-07-2023 End: 01-07-[address] Teagan Hall Work Phone: [facility] Work Phone: Start: 01-07-2023 End: 01-07-2023 Dr. Teagan Hall Work Phone: [facility] Work Phone: Start: 01-06-2023 End: 01-06-2023 Emergency department patient visit Dr. Teagan Hall Work Phone[facility] Work Phone: Start: 01-06-2023 End: 01-06-2023 Dr. Teagan Hall Work Phone: [facility]-Emergency Department Work Phone: Start: 01-05-2023 End: 01-05-[address] Teagan Hall Work Phone: [facility] Work Phone: Start: 01-05-2023 End: 01-05-2023 Dr. Teagan Hall Work Phone: [facility] Work Phone: Start: 01-05-2023 End: 01-05-2023 Office outpatient visit 15 minutes Patito Gonzalez DO Work Phone: [facility] Pulmonary [facility] Comment on above: Lung nodule (Primary Dx); Pleural effusion; COLE (dyspnea on exertion) Start: 01-04-2023 Non-patient / Non-visit Dr. Marge Hall Work Phone: [facility] Work Phone: Start: 01-04-2023 Dr. Teagan orellana Work Phone: [facility] Work Phone: Start: 01-03-2023 Non-patient / Non-visit Dr. Marge Hall Work Phone: [facility] Work Phone: Start: 01-03-2023 End: 01-04-2023 Dr. Teagan Hall [facility] Phone[facility] Work Phone: Start: 01-03-2023 End: 01-04-2023 Evaluation and management of inpatient Dr. Teagan Hall Work Phone[facility] Work Phone: Start: 01-03-[address] Teagan Hall Work Phone: [facility] Work Phone: Start: 01-01-2023 End: 01-05-2023 ambulatory [facility] Start: 12-30-2022 End: 12-30-[address] Teagan Hall Work Phone: [facility] Work Phone: Start: 12-30-2022 End: 12-30-[address] Teagan Hall Work Phone: [facility] Work Phone: Start: 12-30-2022 End: 12-30-2022 Dr. Teagan Hall [facility] Phone[facility] Work Phone: Start: 12-29-2022 End: 12-29-[address] Teagan Hall Work Phone[facility] Work Phone: Start: 12-29-[address] Teagan castelan Work Phone: [facility] Start: 12-29-2022 End: 12-29-2022 Dr. Teagan Hall Work Phone: [facility] Start: 12-11-2022 End: 12-11-[address] Teagan Hall Work Phone: [facility] Work Phone: Start: 12-11-2022 End: 12-11-[address] Teagan Hall Work Phone: [facility]-Laboratory Work Phone: Start: 12-11-2022 End: 12-11-2022 Dr. Teagan Hall [facility] Work [facility]: Start: 12-09-2022 End: 12-09-[address] Teagan Hall Work [facility] Work Phone: Start: 12-09-2022 End: 12-09-2022 Dr. Teagan Hall Work Phone[facility] Work Phone: Start: 11-12-2022 End: 11-12-2022 Emergency department patient visit Dr. Teagan Hall Work Phone[facility] Work Phone: Start: 11-12-2022 End: 11-12-2022 Dr. Teagan Hall Work Phone: [facility]-Emergency Department Work Phone: Start: 11-11-2022 End: 11-11-[address] Teagan Hall Work Phone: [facility] Work Phone: Start: 11-11-2022 End: 11-11-[address] Teagan Hall Work [facility] Work Phone: Start: 11-11-2022 End: 11-11-2022 Dr. Teagan Hall Work Phone[facility] Work Phone: Start: 10-30-2022 End: 10-30-[address] Teagan Hall Work Phone: [facility] Work Phone: Start: 10-30-2022 End: 10-30-[address] Teagan Hall Work Phone: [facility] Work Phone: Start: 10-30-2022 End: 10-30-2022 Dr. Teagan Hall Work Phone: [facility] Work Phone: Start: 10-14-2022 End: 10-14-[address] Teagan Hall Work Phone: [facility] Work Phone: Start: 10-14-2022 End: 10-14-[address] Teagan Hall Work Phone: [facility] Out Start: 10-01-2022 End: 10-01-[address] Teagan Hall Work Phone: [facility] Start: 09-30-2022 Telephone encounter Ladi Sharp [facility]monary [facility] Sleep Medicine Comment on above: Care Coordination (L hadley Nodule Follow Up ) Start: 09-29-2022 End: 09-29-2022 Phys/qhp telephone evaluation 21-30 min Tevin Vidal MD Work Phone: [facility] Comment on above: Lung mass (Primary D x); History of breast cancer; Rheumatoid arthritis with inflammatory polyarthropathy (HCC) Start: 09-25-2022 End: 09-29-2022 ambulatory JOSEPH. JONAS [facility] Start: 09-22-2022 End: 09-22-2022 ambulatory PATITO GONZALEZ [facility] Start: 09-20-2022 End: 09-21-2022 ambulatory TEAGAN HALL [facility] Start: 09-16-2022 End: 09-16-[address] Teagan Hall Work Phone: [facility] Start: 09-16-2022 End: 09-16-2022 ambulatory TEAGAN HALL [facility] Start: 09-10-[address] Teagan castelan Work Phone: [facility] Start: 09-10-2022 End: 09-10-[address] Teagan Hall Work Phone: [facility] Start: 08-25-2022 End: 08-25-[address] Teagan Hall Work Phone: [facility], [facility] Start: 08-24-2022 End: 08-24-[address] Teagan Hall Work Phone: [facility] Start: 08-20-2022 End: 08-20-2022 Evaluation and management of inpatient TEAGAN HALL Facility:[facility] Start: 08-19-2022 End: 08-19-2022 Emergency department patient visit Dr. Teagan Hall Work Phone: [facility]-Emergency Department Start: 08-19-2022 End: 08-19-[address] Teagan Hall Work Phone: [facility] Work Phone: Start: 08-19-2022 End: 08-19-[address] Teagan Hall Work Phone: [facility] Out Start: 08-14-2022 End: 08-14-[address] Teagan Hall Work Phone: [facility] Work Phone: Start: 08-14-2022 End: 08-14-[address] Teagan Hall Work Phone: [facility] Start: 08-13-2022 End: 08-13-2022 ambulatory MARCUS JIMENEZ HEARNMAN Facility:[facility] Start: 08-13-2022 End: 08-13-2022 Patient encounter procedure Marcus Mello DPM Work Phone: [facility] Comment on above: Post-operative state (Primary Dx) Start: 07-22-2022 End: 07-22-[address] Teagan Hall Work Phone: [facility] Work Phone: Start: 07-22-2022 End: 07-22-[address] Teagan Hall Work Phone: [facility] Start: 07-09-2022 End: 07-09-2022 ambulatory MARCUS MELLO Facility:[facility] Start: 07-09-2022 End: 07-09-2022 Patient encounter procedure Marcus Mello DPM Work Phone: [facility] Comment on above: Post-operative state (Primary Dx); Wound dehiscence Start: 07-03-2022 End: 07-03-[address] Teagan Hall Work Phone: [facility] Work Phone: Start: 07-03-2022 End: 07-03-[address] Teagan Hall Work Phone: [facility] Start: 07-01-2022 End: 07-01-[address] Teagan Hall Work Phone: [facility] Start: 06-29-2022 Patient encounter procedure [facility] Provider [facility] Department Start: 06-24-2022 End: 06-24-[address] Teagan Hall Work Phone: [facility] Work Phone: Start: 06-24-2022 End: 06-24-[address] Teagan Hall Work Phone: [facility] Out Start: 06-19-2022 Telephone encounter Ag Orth Work Phone: [facility] Comment on above: Patient Question (At tempted to reach patient to let them know about a voided payment taken at Office Visit 06/18/22. Unable to pay $75 on $200+ balance, transaction was voided. On 06/19 sent out voided reciept to patient. ) Start: 06-18-2022 End: 06-18-2022 ambulatory MARCUS MELLO Facility:[facility] Start: 06-16-2022 Non-patient / Non-visit Dr. Marge Hall Work Phone: [facility] Start: 06-05-2022 End: 06-05-2022 ambulatory MARCUS MELLO Facility:[facility] Start: 06-05-2022 End: 06-05-2022 Patient encounter procedure Marcus Mello DPM Work Phone: [facility] Comment on above: Post-operative state (Primary Dx); History of ankle surgery Start: 05-29-2022 End: 05-29-2022 ambulatory MARCUS MELLO Facility:[facility] Start: 05-29-2022 End: 05-29-2022 Patient encounter procedure Marcus Mello DPM Work Phone: [facility] Comment on above: Post-operative state (Primary Dx) Start: 05-22-2022 End: 05-22-[address] Teagan Hall Work Phone: [facility] Work Phone: Start: 05-22-2022 End: 05-22-[address] 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 Teagan Hall Work Phone: [facility] Start: 04-16-[address] 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 Teagan Hall Work Phone: [facility] Work Phone: Start: 04-03-2022 End: 04-03-[address] Teagan Hall Work Phone: [facility] Out Start: 04-01-2022 End: 04-01-2022 ambulatory MARCUS MELLO Facility:[facility] Start: 03-18-2022 Telephone encounter Marcus Mello DPM Work Phone: [facility] Comment on above: Orders Start: 03-18-2022 End: 03-18-2022 ambulatory MARCUS MELLO Facility:[facility] Start: 03-18-2022 End: 03-18-2022 Patient encounter procedure Marcus Mello DPM Work Phone: [facility] Comment on above: History of ankle criselda gabbie (Primary Dx); Chronic pain of left ankle; Wound dehiscence; Decreased pedal pulses Start: 03-06-2022 End: 03-06-[address] Teagan Hall Work Phone: [facility] Work Phone: Start: 03-06-2022 End: 03-06-[address] Te[facility] Start: 02-24-2022 End: 02-24-[address] Teagan Hall Work Phone: [facility] Work Phone: Start: 02-24-2022 End: 02-24-[address] Teagan Hall Work Phone: [facility] Start: 02-09-2022 End: 02-09-[address] Teagan Hall Work Phone: [facility] Work Phone: Start: 02-09-2022 End: 02-09-[address] Teagan Hall Work Phone: [facility] Start: 02-06-2022 End: 02-06-[address] Teagan Hall Work Phone: [facility] Work Phone: Start: 02-06-2022 End: 02-06-[address] Te[facility] Start: 02-05-2022 Non-patient / Non-visit Dr. Marge Hall Work Phone: [facility] Start: 02-05-2022 End: 02-05-[address] Teagan Hall Work Phone: [facility] Work Phone: Start: 02-05-2022 End: 02-05-[address] Teagan Hall Work Phone: [facility] Start: 01-20-2022 Non-patient / Non-visit Dr. Marge Hall Work Phone: [facility] Start: 01-20-2022 End: 01-20-[address] Teagan Hall Work Phone: [facility] Work Phone: Start: 01-20-2022 End: 01-20-[address] Teagan Hall Work Phone: [facility] Start: 01-09-2022 End: 01-09-[address] Teagan Hall Work Phone: [facility] Work Phone: Start: 01-09-2022 End: 01-09-[address] Teagan Hall Work Phone: [facility]-Medical Out Start: 12-24-2021 End: 12-24-[address] Teagan Hall Work Phone: [facility] Start: 12-12-2021 End: 12-12-[address] Te[facility] Start: 11-20-2021 End: 11-20-2021 Patient encounter procedure [facility] Start: 11-14-2021 End: 11-14-2021 Patient encounter procedure [facility] Start: 10-17-2021 End: 10-17-2021 [facility] Start: 09-19-2021 End: 09-19-2021 [facility] Start: 08-20-2021 End: 08-20-[address] Teagan Hall [facility] Start: 07-23-2021 End: 07-23-[address] Te[facility] Hall [facility] Start: 07-03-2021 End: 07-03-[address] Teagan Hall Work Phone: [facility]-Outpatient Breast Imaging Start: 06-25-2021 End: 06-25-[address] Te[facility] Hall [facility] Start: 05-28-2021 End: 05-28-[address] Teagan Hall [facility] Start: 05-12-2021 End: 05-12-[address] Teagan Hall Work Phone: [facility] Start: 04-30-[address] Te[facility] Start: 04-17-[address] Teagan castelan Work Phone: [facility] Start: 04-17-2021 End: 04-17-[address] Teagan Hall Work Phone: [facility] Start: 04-02-[address] Te[facility] Start: 12-24-[address] Yann Hall Work Phone: [facility] Start: 10-29-2017 End: 10-29-2017 Ambulatory JOSE L DOUGLASMAN Facility:[facility] Start: 08-25-2017 End: 08-25-2017 Ambulatory JOSE L ANDREWSHMAN Facility:[facility] Start: 07-21-2017 End: 07-21-2017 Ambulatory JOSE L ANDREWSHMAN Facility:[facility] Start: 06-30-2017 End: 06-30-2017 Ambulatory JOSE L ANDREWSHMAN Facility:[facility] Start: 06-02-2017 End: 06-02-2017 Ambulatory JOSE L ANDREWSHMAN Facility:[facility] Start: 05-12-2017 End: 05-12-2017 Ambulatory JOSE L ANDREWSHMAN Facility:[facility] Start: 05-05-2017 End: 05-05-2017 Ambulatory JOSE L ANDREWSHMAN Facility:[facility] Start: 04-17-2017 End: 04-22-2017 Evaluation and management of inpatient Teagan Hall Facility:[facility] Procedures Date Procedure Procedure Detail Performing Clinician Start: 12-22-2024 Blood count smear mc rscp w/mnl difrntl wbc count Dr. Teagan Hall MD Work Phone: Start: 12-22-2024 Mean corpuscular hemoglobin concentration determination Dr. Teagan Hall MD Work Phone: Start: 12-22-2024 Nucleated red blood cell count procedure Dr. Teagan Hall MD Work Phone: Start: 12-22-2024 Platelet mean volume determination Dr. Teagan Hall MD Work Phone: Start: 12-19-2024 X-ray of cervical spine Dr. Teagan Hall MD Work Phone: Start: 12-06-2024 Blood count smear mc rscp w/mnl difrntl wbc count Dr. Teagan Hall MD Work Phone: Start: 12-06-[address] Teagan Hall MD Work Phone: Start: 12-06-2024 Mean corpuscular hemoglobin concentration determination Dr. Teagan Hall MD Work Phone: Start: 12-06-2024 Nucleated red blood cell count procedure Dr. Teagan Hall MD Work Phone: Start: 12-06-2024 Platelet mean volume determination Dr. Teagan Hall MD Work Phone: Start: 12-06-2024 Serum inorganic phos phate measurement Dr. Teagan Hall MD Work Phone: Start: 12-05-2024 MRI of cervical spine Mable Hall MD Work Phone: Start: 12-04-[address] Teagan Hall MD Work Phone: Start: 12-01-[address] Teagan castelan MD Work Phone: Start: 12-01-2024 Urine microscopy: re d cells Dr. Teagan Hall MD Work Phone: Start: 12-01-2024 Urnls dip stick/tabl et reagent auto microscopy Dr. Teagan Hall MD Work Phone: Start: 12-01-2024 Vitamin D, 25-hydrox y measurement Dr. Teagan Hall MD Work Phone: Comment on above: Vitamin D StatusDefi ciency: <20 ng/mL (50nmol/L)Insufficiency: 20-30 ng/mL (50-75 nmol/L)Sufficiency: 30-100 ng/mL (75-250 nmol/L)Toxicity: >100 ng/mL (>250 nmol/L) Start: 11-30-[address] Teagan Hall MD Work Phone: Start: 11-30-2024 CT cervical spine wi thout contrast Dr. Teagan Hall MD Work Phone: Start: 11-30-2024 CT of head without contrast Dr. Teagan Hall MD Work Phone: Start: 11-30-2024 Plain chest X-ray Dr. Yann Hall MD Work Phone: Start: 10-16-2024 Blood count smear mc rscp w/mnl difrntl wbc count Dr. Teagan Hall MD Work Phone: Start: 10-16-2024 Mean corpuscular hemoglobin concentration determination Dr. Teagan Hall MD Work Phone: Start: 10-16-2024 Nucleated red blood cell count procedure Dr. Teagan Hall MD Work Phone: Start: 10-16-2024 Platelet mean volume determination Dr. Teagan Hall MD Work Phone: Start: 09-29-2024 Blood count smear mc rscp w/mnl difrntl wbc count Dr. Teagan Hall MD Work Phone: Start: 09-29-2024 Mean corpuscular hemoglobin concentration determination Dr. Teagan Hall MD Work Phone: Start: 09-29-2024 Nucleated red blood cell count procedure Dr. Teagan Hlal MD Work Phone: Start: 09-29-2024 Platelet mean volume determination Dr. Teagan Hall MD Work Phone: Start: 07-23-2024 Urnls dip stick/tabl et reagent [...] Borderline: 0.25 - 0.40 Positive: >0.40Performed at: - [id number] [place], [place] [id number] Director: Luis Carlos Cerna MD, Phone: [phone] Start: 07-04-2024 X-ray of chest, PA a [...] Phone: Start: 04-05-2023 Plain chest X-ray Dr. Yann Hall Work Phone: Start: 02-25-2023 Plain chest X-ray Dr. Yann Hall Work Phone: Start: 02-23-2023 Plain chest X-ray Dr. Yann Hall Work Phone: Start: 02-22-2023 Plain chest X-ray Dr. aYnn Hall Work Phone: Start: 02-22-2023 Ultrasonic guidance [...] tumor Dr. Teagan Hall Work Phone: Start: 08-25-2022 Plain chest X-ray Dr. Yann Hall Work Phone: Start: 08-25-2022 Ultrasonic guidance for thoracentesis Dr. Teagan Hall Work Phone: Start: 08-20-2022 Antibody screen MARCUS MELLO Comment on above: Order Comment: Speci men Type: BLOOD SPECIMEN Ordering Facility: [facility] Address: [address] [place], [place] [address] Performed By: #### 2 4321-2 #### [facility] CLIA [id number] [address] [place] [address] OF [facility] Start: 08-19-2022 Plain X-ray of tibia and [...] History of coronary artery stent placement Dr. Sean Thornton DO Comment on above: 3.00 x 32 Synergy MR FABIANA to mRCA 04/12/20 Plan of Treatment Date Care Activity Detail Author Start: 07-20-2027 DTaP/Tdap/Td Vaccine s (2 - Td or Tdap) DTaP/Tdap/Td Vaccines (2 - Td or Tdap) [facility] Start: 12-27-2024 Evaluation of benjio stic study results [facility] Start: 12-19-2024 X-ray of cervical spine Cerv S pine 4 or 5 Views [facility] Start: 12-19-2024 XR Cervical spine 4 or 5 Views [facility] Start: 12-06-2024 Patient discharge [facility] Start: 12-05-2024 MRI of cervical spine Spine Ce rvical (Routine) [facility] Start: 12-05-2024 Complete blood count [facility] Start: 12-03-2024 End: 12-03-2024 [facility] Start: 12-03-2024 Care planning and pr oblem solving actions [facility] Start: 12-03-2024 Recommendation to co ntinue with treatment [facility] Start: 12-02-2024 Care planning and pr oblem solving actions [facility] Start: 12-02-2024 [facility] Start: 12-02-2024 Referral to paster supervisor [facility] Start: 12-02-2024 [facility] Start: 12-02-2024 Admission procedure [facility] Start: 12-02-2024 [facility] Start: 11-30-2024 Ambulation without limitation [facility] Start: 11-30-2024 Assessment of risk o f venous thromboembolism [facility] Start: 11-30-2024 Insertion of cathete r into peripheral vein [facility] Start: 11-30-2024 Measuring intake and output [facility] Start: 11-30-2024 Providing care accor ding to standard [facility] Start: 11-30-2024 Referral to occupati onal therapist [facility] Start: 11-30-2024 Referral to service [facility] Start: 11-30-2024 [facility] Start: 11-30-2024 Following clinical p athway protocol [facility] Start: 11-30-2024 Verification routine [facility] Start: 11-30-2024 Hospital admission, emergency, from emergency room, medical nature [facility] Start: 11-30-2024 Verification routine [facility] Start: 11-30-2024 Admission procedure [facility] Start: 11-30-2024 Patient referral to dietitian [facility] Start: 06-14-2024 Venous catheter care management [facility] Start: 01-02-2024 Influenza vaccination Influenz a Vaccine (Season Ended) [facility] Start: 08-24-2023 Patient discharge [facility] Start: 08-24-2023 Vital signs measurements [facility] Start: 08-03-2023 End: 08-03-2023 Telemedicine consultation with patient 08/03/2023 10:30 AM EDT Telemedicine [facility] [address] [place] [id number] Patito Gonzalez DO [address] [place] [address] [facility] Start: 07-19-2023 Anaerobic microbial culture Anaerobic Culture [facility] Start: 07-19-2023 Microbial culture, b yun fluid [facility] Start: 07-19-2023 Patient discharge [facility] Start: 07-19-2023 Vital signs measurements [facility] Start: 07-05-2023 Venous catheter care management [facility] Start: 06-23-2023 Iv infusion therapy/prophylaxis /dx 1st to 1 hr THER/PROPH/DIAG IV INF INIT [facility] Start: 05-03-2023 Medicare Advantage A nnual Wellness Visit Medicare Advantage Annual Wellness Visit [facility] Start: 04-08-2023 Patient discharge [facility] Start: 04-08-2023 Vital signs measurements [facility] Start: 02-25-2023 Patient discharge [facility] Start: 02-25-2023 XR Chest PA and Lateral [facility] Start: 02-25-2023 [facility] Start: 02-24-2023 Assessment of risk o f venous thromboembolism [facility] Start: 02-24-2023 Bedrest [facility] Start: 02-24-2023 Elevation of head of bed [facility] Start: 02-24-2023 Taking patient vital signs [facility] Start: 02-24-2023 Wound care [facility] Start: 02-24-2023 [facility] Start: 02-24-2023 Catheterization of vein [facility] Start: 02-24-2023 Notification of physician [facility] Start: 02-24-2023 [facility] Start: 02-23-2023 Application of intermittent pneumatic compression device [facility] Start: 02-23-2023 Following clinical p athway protocol [facility] Start: 02-23-2023 Assessment of risk o f venous thromboembolism [facility] Start: 02-23-2023 Continuous pulse oximetry [facility] Start: 02-23-2023 Inhalation therapy procedure [facility] Start: 02-23-2023 Insertion of cathete r into peripheral vein [facility] Start: 02-23-2023 Measuring intake and output [facility] Start: 02-23-2023 Oxygen therapy [facility] Start: 02-23-2023 Providing care accor ding to standard [facility] Start: 02-23-2023 Referral to paster supervisor [facility] Start: 02-23-2023 Vital signs measurements [facility] Start: 02-23-2023 [facility] Start: 02-23-2023 Verification routine [facility] Start: 02-23-2023 Admission procedure [facility] Start: 02-23-2023 Hospital admission, emergency, from emergency room, medical nature [facility] Start: 02-23-2023 [facility] Start: 02-23-2023 Patient referral to dietitian [facility] Start: 02-22-2023 Thoracentesis needle /cath pleura w/imaging [facility] Start: 02-22-2023 Patient discharge [facility] Start: 02-22-2023 Vital signs measurements [facility] Start: 02-17-2023 Iv infusion therapy/prophylaxis /dx 1st to 1 hr [facility] Start: 01-20-2023 Iv infusion therapy/prophylaxis /dx 1st to 1 hr THER/PROPH/DIAG IV INF INIT [facility] Start: 01-06-2023 [facility] Start: 01-05-2023 End: 01-05-2023 Patient encounter procedure [facility] Medical [facility] Comment on above: Arrived Start: 01-04-2023 Patient discharge [facility] Start: 01-03-2023 Following clinical p athway protocol [facility] Start: 01-03-2023 Ambulation without limitation [facility] Start: 01-03-2023 Assessment of risk o f venous thromboembolism [facility] Start: 01-03-2023 Insertion of cathete r into peripheral vein [facility] Start: 01-03-2023 Measuring intake and output [facility] Start: 01-03-2023 Providing care accor ding to standard [facility] Start: 01-03-2023 [facility] Start: 01-03-2023 Verification routine [facility] Start: 01-03-2023 Admission procedure [facility] Start: 01-03-2023 Brain natriuretic pe ptide measurement [facility] Start: 01-01-2023 COVID-19 Vaccine ( season) COVID-19 Vaccine ( season) [facility] Start: 01-01-2023 Influenza vaccination Influenza Vacc ine (#1) [facility] Start: 12-30-2022 Venous catheter care management [facility] Start: 12-29-2022 Venous catheter care management [facility] Start: 12-09-2022 Iv infusion therapy/prophylaxis /dx 1st to 1 hr THER/PROPH/DIAG IV INF [facility] Start: 10-14-2022 Iv infusion therapy/prophylaxis /dx 1st to 1 hr THER/PROPH/DIAG IV INF [facility] Start: 09-11-2022 Patient referral [facility] Work Phone: Start: 08-25-2022 Patient discharge [facility] Start: 08-25-2022 Vital signs measurements [facility] Start: 08-19-2022 Iv infusion therapy/prophylaxis /dx 1st to 1 hr THER/PROPH/DIAG [facility] Start: 07-22-2022 Iv infusion therapy/prophylaxis /dx 1st to 1 hr THER/PROPH/DIAG IV INF [facility] Start: 07-03-2022 Venous catheter care management [facility] Start: 05-03-2022 ADVANCE DIRECTIVE DISCUSSION ADVANCE DIRECTIVE DISCUSSION [facility] Start: 05-03-2022 DEPRESSION ASSESSMENT DEPRESSION ASS ESSMENT [facility] Start: 04-03-2022 Iv infusion therapy/prophylaxis /dx 1st to 1 hr THER/PROPH/DIAG IV INF [facility] Start: 03-18-2022 End: 05-18-2022 C reactive protein [Mass/volume] in Serum or Plasma C-REACTIVE PROTEIN (CRP) Lab Routine History of ankle surgery Chronic pain of left ankle Wound dehiscence Expected: 03/18/2022, Expires: 05/18/2022 [facility] Work Phone: Comment on above: Expected: 03/18/2022 , Expires: 05/18/2022 Start: 03-18-2022 End: 05-18-2022 CBC W Auto Differential panel - Blood CBC + DIFF Lab Routine History of ankle surgery Wound dehiscence Expected: 03/18/2022, Expires: 05/18/2022 [facility] Work Phone: Comment on above: Expected: 03/18/2022 , Expires: 05/18/2022 Start: 03-18-2022 End: 05-18-2022 Erythrocyte sedimentation rate SED RATE WESTERGREN Lab Routine History of ankle surgery Chronic pain of left ankle Wound dehiscence Expected: 03/18/2022, Expires: 05/18/2022 [facility] Work Phone: Comment on above: Expected: 03/18/2022 , Expires: 05/18/2022 Start: 03-06-2022 Iv infusion therapy/prophylaxis /dx 1st to 1 hr THER/PROPH/DIAG IV INF [facility] Work Phone: Start: 02-06-2022 Iv infusion therapy/prophylaxis /dx 1st to 1 hr THER/PROPH/DIAG IV INF [facility] Work Phone: Start: 11-04-2021 COVID-19 VACCINE (5 - Booster for Moderna series) COVID-19 VACCINE (5 - Booster for Moderna series) [facility] Start: 09-19-2021 Iv infusion therapy/prophylaxis /dx 1st to 1 hr THER/PROPH/DIAG IV INF INIT [facility] Work Phone: Start: 05-28-2021 Iv infusion therapy/prophylaxis /dx 1st to 1 hr [facility] Work Phone: Start: 05-03-2021 ADVANCE DIRECTIVE DISCUSSION ADVANCE DIRECTIVE DISCUSSION [facility] Start: 05-03-2021 DEPRESSION ASSESSMENT DEPRESSION ASS ESSMENT [facility] Start: 04-22-2020 DIABETES SCREEN DIABETES SCREEN [facility] Start: 04-06-2017 [facility] Start: 2001 BONE DENSITY BONE DENSITY [facility] Start: 1996 RSV Immunization age d 60 or older (1 - 1-dose 60+ series) RSV Immunization aged 60 or older (1 - 1-dose 60+ series) [facility] Start: 1986 Zoster Vaccines (1 of 2) Zoste r Vaccines (1 of 2) [facility] Start: 08-29-1955 SHINGRIX VACCINE (1 of 2) GOMEZ GRIX VACCINE (1 of 2) [facility] Start: 08-29-1955 Urine microalbumin profile DTA P,TDAP,TD (1 - Tdap) [facility] Start: 1948 Depression Screening Depression Scre ening [facility] Start: 1942 PNEUMOCOCCAL: 65+ (1 - PCV) PNEUMOCOCCAL: 65+ (1 - PCV) [facility] Start: 1936 Hepatitis B Vaccines (1 of 3 - 3-dose series) Hepatitis B Vaccines (1 of 3 - 3-dose series) [facility] Start: 1936 Lipid panel Lipid Panel [facility] Start: 1936 Medicare Advantage A nnual Wellness Visit (AWV) Medicare Advantage Annual Wellness Visit (AWV) [facility] Start: 1936 Screening for osteoporosis Bone Dens ity Scan [facility] Start: 1936 Thyroid stimulating hormone measurement TSH Level [facility] Anion gap in Serum o r Plasma [facility] Blood chemistry [facility] BUN/Creatinine ratio [facility] Calcium [Mass/volume ] in Serum or Plasma [facility] Cancer Ag 125 [Units/volume] in Serum or Plasma [facility] Cancer Ag 15-3 [Pres ence] in Serum or Plasma [facility] Cancer Ag 15-3 [Pres ence] in Serum or Plasma [facility] Cancer Ag 27-29 [Pre sence] in Serum or Plasma [facility] Carbon dioxide, tota l [Moles/volume] in Central venous blood [facility] Carcinoembryonic Ag [Mass/volume] in Serum or Plasma [facility] Carcinoembryonic Ag [Mass/volume] in Serum or Plasma [facility] Cardioversion [facility] CBC W Auto Different ial panel - Blood [facility] CBC W Auto Different ial panel - Blood [facility] CBC W Auto Different ial panel - Blood [facility] Cell count and Differential panel - Body fluid [facility] Creatinine [Mass/vol ume] in Serum or Plasma [facility] CT Chest W contrast IV [facility] Erythrocyte mean corpuscular volume determination [facility] Exercise tolerance test [facility] Glucose [Mass/volume ] in Serum or Plasma [facility] Hematocrit [Volume Fraction] of Blood [facility] Hemoglobin [Mass/vol ume] in Blood [facility] In-vitro immunologic test [facility] Work Phone: In-vitro immunologic test [facility] Lactate dehydrogenas e [Enzymatic activity/volume] in Body fluid by Pyruvate to lactate reaction [facility] Lactate dehydrogenas e measurement [facility] Lactate dehydrogenas e measurement [facility] Lactic acid measurement [facility] Leukocytes [#/volume ] in Blood [facility] Mean corpuscular hemoglobin concentration determination [facility] Mean corpuscular hemoglobin determination [facility] Measurement of renal function [facility] Measurement of respi ratory function [facility] Microbial culture, b yun fluid [facility] Microscopic observat ion [Identifier] in Body fluid by Cyto stain [facility] Mycobacterium tuberc ulosis tuberculin stimulated gamma interferon [Presence] in Blood [facility] Work Phone: Mycobacterium tuberc ulosis tuberculin stimulated gamma interferon [Presence] in Blood [facility] End: 04-17-2023 Non-invasive physiologic study extremity 3 levls US ARTERIAL PVR LOWER Radiology Routine Wound dehiscence Decreased pedal pulses 1 Occurrences starting 03/18/2022 until 04/17/2023 [facility] Work Phone: Comment on above: 1 Occurrences starti ng 03/18/2022 until 04/17/2023 Partial thromboplast in time, activated [facility] Patient Education [facility] Work Phone: Patient referral [facility] Work Phone: Platelets [#/volume] in Blood [facility] Potassium measurement [facility] Protein [Mass/volume ] in Body fluid [facility] Protein [Mass/volume ] in Serum or Plasma [facility] PT Unspecified body region [facility] Radionuclide imaging of perfusion of myocardium under exercise stress [facility] Work Phone: Red blood cell count [facility] Red cell distributio n width determination [facility] Serum chloride measurement [facility] Sodium measurement [facility] Ultrasonic guidance for thoracentesis [facility] Urea nitrogen [Mass/volume] in Serum or Plasma [facility] US Carotid arteries [facility] Work Phone: [facility] Work Phone: [facility] XR Chest PA and Lateral [facility] Immunizations Immunization Date Immunization Notes Care Provider Adriano carrillo 01-30-2022 influenza virus vaccine, unspecified formulation Ladi Sharp [facility] 01-23-[address] Teagan Hall Work Phone: [facility] 07-19-2017 tetanus toxoid, redu ching diphtheria toxoid, and acellular pertussis vaccine, adsorbed Dr. Teagan Hall Work Phone: [facility] 01-09-[address] Teagan Hall Work Phone: [facility] 01-10-[address] Teagan Hall Work Phone: [facility] Work Phone: 01-10-2007 pneumococcal vaccine , unspecified formulation Dr. Teagan Hall Work Phone: [facility] Payers Date Payer Category Payer Self-pay [id number] 2022 Unknown [id number] 2021 Medicare [id number] 2012 Medicare [id number] 2012 Private Health Insurance [facility] [id number] Unknown [id number] Unknown [id number] 2.16.8 40.1.071995.3.579.2.462 Unknown [id number] 2.16.8 40.1.669994.3.579.2.462 Unknown [id number] 2.16.8 40.1.914478.3.579.2.462 Unknown [id number] 2.16.8 40.1.623838.3.579.2.462 Unknown [id number] 2.16.8 40.1.651442.3.579.2.462 Unknown [id number] 2.16.8 40.1.879292.3.579.2.462 Unknown [id number] 2.16.8 40.1.235765.3.579.2.462 Unknown [id number] 2.16.8 40.1.001111.3.579.2.462 Unknown [id number] 2.16.8 40.1.078399.3.579.2.462 Unknown [id number] 2.16.8 40.1.087538.3.579.2.462 Unknown [id number] 2.16.8 40.1.326558.3.579.2.462 Unknown [id number] 2.16.8 40.1.051206.3.579.2.462 Unknown [id number] 2.16.8 40.1.088786.3.579.2.462 Unknown [id number] 2.16.8 40.1.789622.3.579.2.462 Unknown [id number] 2.16.8 40.1.174398.3.579.2.462 Unknown [id number] 2.16.8 40.1.603477.3.579.2.462 Unknown [id number] 2.16.8 40.1.875597.3.579.2.462 Unknown [id number] 2.16.8 40.1.700372.3.579.2.462 Unknown [id number] 2.16.8 40.1.690472.3.579.2.462 Unknown [id number] 2.16.8 40.1.566622.3.579.2.462 Unknown [id number] 2.16.8 40.1.262067.3.579.2.462 Unknown [id number] 2.16.8 40.1.082257.3.579.2.462 Unknown [id number] 2.16.8 40.1.646615.3.579.2.462 Unknown [id number] 2.16.8 40.1.080634.3.579.2.462 Unknown [id number] 2.16.8 40.1.180122.3.579.2.462 Unknown [id number] 2.16.8 40.1.535937.3.579.2.462 Unknown [id number] 2.16.8 40.1.181420.3.579.2.462 Unknown [id number] 2.16.8 40.1.460750.3.579.2.462 Unknown [id number] 2.16.8 40.1.765780.3.579.2.462 Unknown [id number] 2.16.8 40.1.730171.3.579.2.462 Unknown [id number] 2.16.8 40.1.511891.3.579.2.462 Unknown [id number] 2.16.8 40.1.765701.3.579.2.462 Unknown [id number] 2.16.8 40.1.877691.3.579.2.462 Unknown [id number] 2.16.8 40.1.304054.3.579.2.462 Unknown [id number] 2.16.8 40.1.831423.3.579.2.462 Unknown [id number] 2.16.8 40.1.506363.3.579.2.462 Unknown [id number] 2.16.8 40.1.749924.3.579.2.462 Unknown [id number] 2.16.8 40.1.521987.3.579.2.462 Unknown [id number] 2.16.8 40.1.159654.3.579.2.462 Social History Date Type Detail Facility Start: 05-12-2021 End: 07-16-2023 Tobacco smoking status KSIS Unknown if ever smoked [facility] Start: 09-23-2013 None [facility] Start: 05-15-2020 Alone [facility] Start: 04-18-2020 Non-smoker [facility] Start: 1935 Sex Assigned At Female [facility] Start: 03-18-2022 End: 12-06-2024 Tobacco smoking status KSIS Never smoked tobacco [facility] Start: 03-18-2022 End: 09-16-2022 Tobacco use and exposure Smokeless tobacco non-user [facility] Start: 03-18-2022 End: 08-17-2022 Alcohol intake Current non-drinker of alcohol (finding) [facility] Start: 1935 Sex Assigned At Not on file [facility] Start: 03-08-2022 End: 09-22-2022 Exposure to SARS-CoV-2 (event) Not sure [facility] Start: 09-23-2022 End: 08-03-2023 Alcohol intake Lifetime non-drinker (finding) [facility] Start: 09-22-2022 History SDOH IPV Fear 2 [facility] Start: 09-22-2022 End: 08-03-2023 History of Social function [facility] Start: 09-22-2022 End: 08-03-2023 Humiliation, Afraid, Rape, and Kick questionnaire [HARK] [facility] Within the last year , have you been afraid of your partner or ex-partner? No [facility] Start: 07-18-2024 End: 08-01-2024 Sex Female (finding) [facility] Medical Equipment Procedure Code Equipment Code Equipment [...] Start: 10-28-2018 ORIF, ankle FDA Start: 10-28-2018 Plate Lcp Stainl ess Steel [id number] .7mm Bone 1/3 Tubular 10 Hole Collar - [id number] Start: 04-20-2017 Screw Dcp Lc-Dcp 3.5mm Stainless Steel 55mm Bone Self Tapping Hexagonal - [id number] Start: 04-20-2017 Cement Simplex Gentamicin Bone High Viscosity 20ml Sterile 40gm - [id number] Start: 05-18-2022 ([id number]) [id number] [id number] FDA Start: 02-24-2023 ([id number]) [id number] [id number] FDA Start: 02-24-2023 ([id number]) [id number] FDA Start: 02-24-2023 Goals Date Patient Goal Desired Activity /State Functional Status Date Assessment Result Facility 12-06-2024 Functional status With Assist of 1 [facility] Work Phone: 12-06-2024 Functional status Chair [facility] Work Phone: 12-04-[address] [facility] Work Phone: 02-25-2023 Functional status Bedrest [facility] Work Phone: 02-24-2023 Functional status Ambulates [facility] Work Phone: 01-04-2023 Functional status Ambulates [facility] Work Phone: Mental Status Date Assessment Result Facility 12-05-2024 Cognitive function Voice/Name [facility] Work Phone: 12-04-2024 Cognitive function Voice/Name [facility] Work Phone: 08-24-2023 Cognitive function Level Of Cons ciousness Awake;Alert;Appropriate [facility] Work Phone: 07-19-2023 Cognitive function Level Of Cons ciousness Awake;Alert;Appropriate;Follo ws Commands [facility] Work Phone: 06-23-2023 Cognitive function Awake;Alert;A ppropriate;Follo ws Commands [facility] Work Phone: 04-08-2023 Cognitive function Awake;Alert;A ppropriate;Follo ws Commands [facility] Work Phone: 03-17-2023 Cognitive function Voice/Name [facility] Work Phone: 02-24-2023 Cognitive function Voice/Name [facility] Work Phone: 02-23-2023 Cognitive function Awake;Alert;A ppropriate;Follo ws Commands;Responds to vocal stimuli [facility] Work Phone: 02-22-2023 Cognitive function Awake;Alert;Appropriat e [facility] Work Phone: 01-27-2023 Cognitive function Voice/Name [facility] Work Phone: 01-20-2023 Cognitive function Awake;Alert;Appropriat e [facility] Work Phone: 01-04-2023 Cognitive function Voice/Name [facility] Work Phone: 01-03-2023 Cognitive function Voice/Name [facility] Work Phone: 12-09-2022 Cognitive function Voice/Name [facility] Work Phone: 11-11-2022 Cognitive function Voice/Name [facility] Work Phone: 10-14-2022 Cognitive function Voice/Name [facility] Work Phone: 09-16-2022 Cognitive function Voice/Name [facility] Work Phone: 08-25-2022 Cognitive function Level Of Cons ciousness Awake;Alert;Appropriate;Follo ws Commands [facility] Work Phone: 08-19-2022 Cognitive function Voice/Name [facility] Work Phone: 07-22-2022 Cognitive function Awake;Alert;A ppropriate;Follo [facility] Work Phone: 06-24-2022 Cognitive function Voice/Name [facility] Work Phone: 03-06-2022 Cognitive function Level Of Cons ciousness Awake;Alert;Appropriate;Follo [facility] Work Phone: 02-06-2022 Cognitive function Voice/Name [facility] Work Phone: 01-09-2022 Cognitive function Voice/Name [facility] Work Phone: 12-12-2021 Cognitive function Voice/Name [facility] Work Phone: 10-17-2021 Cognitive function Level Of Cons ciousness Awake;Alert [facility] Work Phone: 09-19-2021 Cognitive function Awake;Alert;A ppropriate;Follo [facility] Work Phone: 08-20-2021 Cognitive function Awake;Alert;Appropriat e [facility] Work Phone: 07-23-2021 Cognitive function Awake;Alert;A ppropriate;Follo [facility] Work Phone: 06-25-2021 Cognitive function Voice/Name [facility] Work Phone: 05-28-2021 Cognitive function Awake;Alert;A ppropriate;Follo [facility] Work Phone: 04-30-2021 Cognitive function Voice/Name [facility] Work Phone: 04-02-2021 Cognitive function Voice/Name [facility] Work Phone: 04-17-2019 Cognitive function Appropriate;[facility] Work Phone: Clinical Notes 04-12-2020 to 12-06-2024 Note Date & Type Note Facility 12-06-2024 Hospital Discharg e instructions Additional Instructions Date of Discharge: 12/06/24 [facility] Work Phone: 12-06-2024 Consult note Note Date/Time December 06, 2024 11:26am [facility] Medical Records Department [address] [address] Counseling Note - Pharmacy 12/06/24 1125 MR#: [id number] Acct: [id number] Name: ROBERTO FERGUSON Rep #:[id number] : 1935 89 From: Tracy Peña PCP: Dr. Linda Mao MD Status :DIS IN Y Location: [place] [address] Pharmacy [facility] Counseling Pharmacy Service has performed discharge medication reconciliation and counseling for this patient. 1. ATORVASTATIN 20MG PO QHS 2. AMIODARONE CHANGED TO BID 3. METOPROLOL DECREASED TO 25MG The patient's discharge medication list was reviewed for discrepancies and discrepancies were resolved. The patient was counseled on the following discharge medications and changes in medications for homegoing were reviewed. The Reason for Use, instructions for use, and potential side effects were reviewed for all new medications. The patient's questions regarding all of their medications were answered. The patient was able to verbally demonstrate an understanding of their dischargemedications. Medications at Discharge Home Medications levothyroxine 75 mcg tablet 100 mcg PO DAILY thyroid 04/06/23 calcium carbonate 1,000 mg PO DAILY@0800 PRN indigestion 04/07/23 dapagliflozin propanediol 10 mg tablet (Farxiga) 10 mg PO QAM heart #90 tabs 02/01/24 spironolactone 25 mg tablet 25 mg PO QAM heart #90 tabs 06/20/24 furosemide 40 mg tablet 40 mg PO QDAY #30 tabs 07/26/24 apixaban 2.5 mg tablet 2.5 mg PO BID blood thinner #180 tabs 09/12/24 mirtazapine 30 mg tablet 45 mg PO DAILY 09/12/24 sacubitril 24 mg-valsartan 26 mg tablet (Entresto) 1 tab PO BID heart #180 tabs 09/12/24 amiodarone 200 mg tablet 200 mg PO BIDCM #120 tabs 12/06/24 atorvastatin 20 mg tablet 20 mg PO QHS #60 tabs 12/06/24 metoprolol tartrate 25 mg tablet 25 mg PO BID #120 tabs 12/06/24 12/06/24 1126 <Electronically signed by Tracy Peña> Date _ Tracy Peña Cosigner Signature (if applicable): Date CC: ~ Signed [facility] Work Phone: 1(410) 206-305208-06-2025 Consult note [facility] Medical Records Department [address] [place] [address] Counseling Note - Pharmacy 12/06/24 1125 MR#: [id number] Acct: [id number] Name: ROBERTO FERGUSON Rep #:[id number] : 1935 89 From: Tracy Peña PCP: Dr. Linda Mao MD Status :DIS IN Y Location: [place] [address] Pharmacy [facility] Counseling Pharmacy Service has performed discharge medication reconciliation and counseling for this patient. 1. ATORVASTATIN 20MG PO QHS 2. AMIODARONE CHANGED TO BID 3. METOPROLOL DECREASED TO 25MG The patient's discharge medication list was reviewed for discrepancies and discrepancies were resolved. The patient was counseled on the following discharge medications and changes in medications for homegoing were reviewed. The Reason for Use, instructions for use, and potential side effects were reviewed for all new medications. The patient's questions regarding all of their medications were answered. The patient was able to verbally demonstrate an understanding of their dischargemedications. Medications at Discharge Home Medications levothyroxine 75 mcg tablet 100 mcg PO DAILY thyroid 04/06/23 calcium carbonate 1,000 mg PO DAILY@0800 PRN indigestion 04/07/23 dapagliflozin propanediol 10 mg tablet (Farxiga) 10 mg PO QAM heart #90 tabs 02/01/24 spironolactone 25 mg tablet 25 mg PO QAM heart #90 tabs 06/20/24 furosemide 40 mg tablet 40 mg PO QDAY #30 tabs 07/26/24 apixaban 2.5 mg tablet 2.5 mg PO BID blood thinner #180 tabs 09/12/24 mirtazapine 30 mg tablet 45 mg PO DAILY 09/12/24 sacubitril 24 mg-valsartan 26 mg tablet (Entresto) 1 tab PO BID heart #180 tabs 09/12/24 amiodarone 200 mg tablet 200 mg PO BIDCM #120 tabs 12/06/24 atorvastatin 20 mg tablet 20 mg PO QHS #60 tabs 12/06/24 metoprolol tartrate 25 mg tablet 25 mg PO BID #120 tabs 12/06/24 12/06/24 1126 Date _ Tracy Steward Signature (if applicable): Date CC: ~ Signed [facility]08-06-2025 Discharge summary Author Ajith Quiñones [facility] Note Date/Time December 06, 2024 8:2 9am [facility] Medical Records Department [address] [place] [address] Discharge Summary 12/06/24 0821 MR#: [id number] Acct: [id number] Name: ROBERTO FERGUSON Rep #:[id number] : 1935 89 From: Ajith Quiñones MD PCP: Dr. Linda Mao MD Status :ADM IN Location: [place] [address] Providers Date of Admission: 12/02/24 Date of Discharge: 12/06/24 Primary Care Physician: Dr. Linda Mao MD Consultations 12/02/24 17:23 Consult: Cardiology Routine Consulting Provider: Savi Patel Reason for Consult: presyncope, new wallmotion abn on echo EMERGENT Consult: No MD Notified: Yes Date Notified: 12/02/24 Time Notified: 17:31 Method of Notification: Verbal Reason For Visit: WEAKNESS AND DIZZINESS W/FALLS Diagnosis Discharge Diagnosis (1) Complete heart block: Status: Acute Code(s): I44.2 - Atrioventricular block, complete (2) AF (paroxysmal atrial fibrillation): Status: Chronic Code(s): I48.0 - Paroxysmal atrial fibrillation (3) Congestive heart failure (CHF): Status: Acute Code(s): I50.9 - Heart failure, unspecified Qualifiers: Heart failure chronicity: chronic Heart failure type: systolic Qualified Code(s): I50.22 - Chronic systolic (congestive) heart failure (4) Non-rheumatic mitral regurgitation: Status: Acute Code(s): I34.0 - Nonrheumatic mitral (valve) insufficiency (5) History of coronary artery stent placement: Status: Chronic Code(s): Z95.5 - Presence of coronary angioplasty implant and graft (6) Hyperlipidemia: Status: Acute Code(s): E78.5 - Hyperlipidemia, unspecified Qualifiers: Hyperlipidemia type: mixed hyperlipidemia Qualified Code(s): E78.2 - Mixed hyperlipidemia (7) Pacemaker: Status: Acute Code(s): Z95.0 - Presence of cardiac pacemaker Plan Patient is an 89-year-old lady admitted with dizziness and lightheadedness with fall at home 1. Giddiness ? Etiology not clear. Patient was thought to be orthostatic rehydrated with IV fluids but symptoms persisted also had her pacemaker checked and was found to befunctioning as programmed. 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 An MRIhas subsequently been ordered for further evaluation ? MRI did demonstrate Multilevel degenerate changes without significant canal stenosis.Moderate right foramina stenosis at C4-C5. Plan is for patient to follow-up with Dr. Lopez with spine surgery as 2. 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 Status post pacemaker placement 3. Paroxysmal atrial fibrillation ? Rate controlled on systemic anticoagulation with apixaban 4. Chronic heart failure with reduced ejection fraction ? Last echo from 724 demonstrated EF of 35% patient remains on guideline directed medical therapy ? Did reintroduce patient Entresto. Patient was apparently taking more Lasix because of bilateral lower extremity swelling. She was counseled on the need tostick to prescribed dosing 5. Hypertension ? Blood pressure controlled, home medications continued with dose adjustment as needed 6. Hypothyroidism ? Patient is on levothyroxine home dose continued 7. History of breast cancer s/p mastectomy and chemotherapy ? Follows with oncology, last office visit in October. Currently under observation. No inpatient needs, continue outpatient follow-up. 8. RA ? Patient with history of longstanding RA. Has significant ulnar drift of her fingers consistent with RA and deformities. Continue outpatient injectables after discharge. 9. DVT prophylaxis ? Patient is on apixaban Time spent in the patient's overall evaluation,decision-making process, review of diagnostic data, adjustment of management, discussion with other providers, nursing nursing and ancillary staff involved in patient's care documentation, 36 Minutes Medications at Discharge Home Medications levothyroxine 75 mcg tablet 100 mcg PO DAILY thyroid 04/06/23 calcium carbonate 1,000 mg PO DAILY@0800 PRN indigestion 04/07/23 dapagliflozin propanediol 10 mg tablet (Farxiga) 10 mg PO QAM heart #90 tabs 02/01/24 spironolactone 25 mg tablet 25 mg PO QAM heart #90 tabs 06/20/24 furosemide 40 mg tablet 40 mg PO QDAY #30 tabs 07/26/24 apixaban 2.5 mg tablet 2.5 mg PO BID blood thinner #180 tabs 09/12/24 mirtazapine 30 mg tablet 45 mg PO DAILY 09/12/24 sacubitril 24 mg-valsartan 26 mg tablet (Entresto) 1 tab PO BID heart #180 tabs 09/12/24 amiodarone 200 mg tablet 200 mg PO BIDCM #120 tabs 12/06/24 atorvastatin 20 mg tablet 20 mg PO QHS #60 tabs 12/06/24 metoprolol tartrate 25 mg tablet 25 mg PO BID #120 tabs 12/06/24 Physical Exam Narrative GENERAL: cooperative HEENT: Atraumatic; normocephalic EYES; Anicteric, Normal Conjunctiva NECK; supple, normal thyroid, RESPIRATORY: Diminished to auscultation CARDIOVASCULAR: Regular S1 S2, GI: soft, normoactive bowel sounds, : No Renal angle tenderness; EXTREMITIES: No edema, no clubbing, MUSCULOSKELETAL: Significant deformities involving both hands from RA NEURO: Awake; no lateralizing signs. SKIN: No Rash PSYCH; Flat affect Weight / BMI Weight Weight: 50.712 kg Body Mass Index (BMI) 18.6 ABG / Lab / Microbiology Data 12/06/24 05:22 12/06/24 05:22 Laboratory: Laboratory Results - last 24 hr 12/06/24 05:22: WBC 3.3 L, RBC 3.81 L, Hgb 12.8, Hct 37.2, MCV 97.6, MCH 33.6 H,MCHC 34.4, RDW Std Deviation 51.0 H, RDW Coeff of Sharad 14.2, Plt Count 79 L, MPV 12.0, Immature Gran % (Auto) 0.600, Neut % (Auto) 50.3, Lymph % (Auto) 26.8, [place] % (Auto) 19.0 H, Eos % (Auto) 2.7, Baso % (Auto) 0.6, Absolute Neuts (auto) 1.7 L, Absolute Lymphs (auto) 0.89, Nucleated RBC % 0, Sodium 135, Potassium 4.2, Chloride 104, Carbon Dioxide 17.8 L, Anion Gap 13, BUN 28 H, Creatinine 1.14, Estim Creat Clear Calc 27.31 L, Est GFR (MDRD) Non-Af 46 L, BUN/CreatinineRatio 24.9 H, Glucose 83, Calcium 8.4, Phosphorus 3.9, Magnesium 2.2 Microbiology: Microbiology 12/01/24 10:25 Urine, Clean Catch Urine Culture - Final Presumptive E. coli Mixed Gram Positive Organisms Radiography Diagnostic Testing: Radiology Impression Cervical Spine MRI 12/05/24 06:00 IMPRESSION: Multilevel degenerate changes without significant canal stenosis. Moderate right foramina stenosis at C4-C5. Right lung pleural effusion with airspace opacity, indeterminate. Please correlate with chest x-ray or CT chest. Reading Location: [facility] D/C Instructions Discharge Activity: Return to Normal Activity Call your doctor if you observe: Fever of 101 or Higher, Shortness of breath, Fainting spells and Chest pain DC O2, CPAP, BIPAP Needs Home O2 Discharge instructions: No Meaningful Use Info Meaningful Use Meaningful Use Diagnoses (Choose all that apply): None applicable Discharge Plan Admission Admit Date/Time: 12/02/24 17:28 Attending Provider: Ajith Quiñones Primary Care Provider: Linda Mao Consulting Providers: Sean Thornton; Savi Patel; Marga Butcher Discharge Orders/Prescriptions Prescriptions: New atorvastatin 20 mg Tablet 20 mg PO QHS Qty: 60 0RF amiodarone 200 mg Tablet 200 mg PO BIDCM Qty: 120 0RF metoprolol tartrate 25 mg Tablet 25 mg PO BID Qty: 120 0RF Continued mirtazapine 30 mg tablet 45 mg PO DAILY apixaban 2.5 mg tablet 2.5 mg PO BID Qty: 180 3RF sacubitril-valsartan [Entresto] 24-26 mg tablet 1 tab PO BID Qty: 180 3RF calcium carbonate 200 mg calcium (500 mg) tablet,chewable 1,000 mg PO DAILY@0800 PRN (Reason: indigestion) levothyroxine 75 mcg tablet 100 mcg PO DAILY dapagliflozin propanediol [Farxiga] 10 mg tablet 10 mg PO QAM Qty: 90 3RF spironolactone 25 mg tablet 25 mg PO QAM Qty: 90 3RF furosemide 40 mg tablet 40 mg PO QDAY Qty: 30 11RF Discontinued metoprolol tartrate 50 mg tablet 50 mg PO BID Qty: 180 3RF amiodarone 200 mg tablet 200 mg PO DAILY Qty: 90 3RF Referrals / Follow Up: Teagan Hall MD [Med Staff - Personal Assistant] - Emeterio Lopez MD [Med Staff - Active Staff] - Within 2 Weeks (Cervical DJD) Elias Arevalo MD [Med Staff - Active Staff] - Within 1 Month Linda Mao MD [Primary Care Provider] - Within 1 Week Disposition Disposition (needs filled in before D/C Order can be placed): Home, Self Care Charges/Coding Visit Charges Inpatient E&M: 44051 Disch Hosp >30min 12/06/24 0829 <Electronically signed by Ajith Quiñones MD> Cosigner Signature (if applicable): CC: Dr. Linda Mao MD; Dr. Ajith Quiñones MD~ Signed [facility] Work Phone: 1(294) 926-712808-06-2025 Discharge summary Author Ajith Quiñones [facility] Note Date/Time December 06, 2024 8:2 9am [facility] Medical Records Department [address] [place] [address] Discharge Summary 12/06/24 0821 MR#: [id number] Acct: [id number] Name: ROBERTO FERGUSON Rep #:[id number] : 1935 89 From: Ajith Quiñones MD PCP: Dr. Linda Mao MD Status :ADM IN Location: [place] [address] Providers Date of Admission: 12/02/24 Date of Discharge: 12/06/24 Primary Care Physician: Dr. Linda Mao MD Consultations 12/02/24 17:23 Consult: Cardiology Routine Consulting Provider: Savi Patel Reason for Consult: presyncope, new wallmotion abn on echo EMERGENT Consult: No MD Notified: Yes Date Notified: 12/02/24 Time Notified: 17:31 Method of Notification: Verbal Reason For Visit: WEAKNESS AND DIZZINESS W/FALLS Diagnosis Discharge Diagnosis (1) Complete heart block: Status: Acute Code(s): I44.2 - Atrioventricular block, complete (2) AF (paroxysmal atrial fibrillation): Status: Chronic Code(s): I48.0 - Paroxysmal atrial fibrillation (3) Congestive heart failure (CHF): Status: Acute Code(s): I50.9 - Heart failure, unspecified Qualifiers: Heart failure chronicity: chronic Heart failure type: systolic Qualified Code(s): I50.22 - Chronic systolic (congestive) heart failure (4) Non-rheumatic mitral regurgitation: Status: Acute Code(s): I34.0 - Nonrheumatic mitral (valve) insufficiency (5) History of coronary artery stent placement: Status: Chronic Code(s): Z95.5 - Presence of coronary angioplasty implant and graft (6) Hyperlipidemia: Status: Acute Code(s): E78.5 - Hyperlipidemia, unspecified Qualifiers: Hyperlipidemia type: mixed hyperlipidemia Qualified Code(s): E78.2 - Mixed hyperlipidemia (7) Pacemaker: Status: Acute Code(s): Z95.0 - Presence of cardiac pacemaker Plan Patient is an 89-year-old lady admitted with dizziness and lightheadedness with fall at home 1. Giddiness ? Etiology not clear. Patient was thought to be orthostatic rehydrated with IV fluids but symptoms persisted also had her pacemaker checked and was found to befunctioning as programmed. 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 An MRIhas subsequently been ordered for further evaluation ? MRI did demonstrate Multilevel degenerate changes without significant canal stenosis.Moderate right foramina stenosis at C4-C5. Plan is for patient to follow-up with Dr. Lopez with spine surgery as 2. 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 Status post pacemaker placement 3. Paroxysmal atrial fibrillation ? Rate controlled on systemic anticoagulation with apixaban 4. Chronic heart failure with reduced ejection fraction ? Last echo from demonstrated EF of 35% patient remains on guideline directed medical therapy ? Did reintroduce patient Entresto. Patient was apparently taking more Lasix because of bilateral lower extremity swelling. She was counseled on the need tostick to prescribed dosing 5. Hypertension ? Blood pressure controlled, home medications continued with dose adjustment as needed 6. Hypothyroidism ? Patient is on levothyroxine home dose continued 7. History of breast cancer s/p mastectomy and chemotherapy ? Follows with oncology, last office visit in October. Currently under observation. No inpatient needs, continue outpatient follow-up. 8. RA ? Patient with history of longstanding RA. Has significant ulnar drift of her fingers consistent with RA and deformities. Continue outpatient injectables after discharge. 9. DVT prophylaxis ? Patient is on apixaban Time spent in the patient's overall evaluation,decision-making process, review of diagnostic data, adjustment of management, discussion with other providers, nursing nursing and ancillary staff involved in patient's care documentation, 36 Minutes Medications at Discharge Home Medications levothyroxine 75 mcg tablet 100 mcg PO DAILY thyroid 04/06/23 calcium carbonate 1,000 mg PO DAILY@0800 PRN indigestion 04/07/23 dapagliflozin propanediol 10 mg tablet (Farxiga) 10 mg PO QAM heart #90 tabs 02/01/24 spironolactone 25 mg tablet 25 mg PO QAM heart #90 tabs 06/20/24 furosemide 40 mg tablet 40 mg PO QDAY #30 tabs 07/26/24 apixaban 2.5 mg tablet 2.5 mg PO BID blood thinner #180 tabs 09/12/24 mirtazapine 30 mg tablet 45 mg PO DAILY 09/12/24 sacubitril 24 mg-valsartan 26 mg tablet (Entresto) 1 tab PO BID heart #180 tabs 09/12/24 amiodarone 200 mg tablet 200 mg PO BIDCM #120 tabs 12/06/24 atorvastatin 20 mg tablet 20 mg PO QHS #60 tabs 12/06/24 metoprolol tartrate 25 mg tablet 25 mg PO BID #120 tabs 12/06/24 Physical Exam Narrative GENERAL: cooperative HEENT: Atraumatic; normocephalic EYES; Anicteric, Normal Conjunctiva NECK; supple, normal thyroid, RESPIRATORY: Diminished to auscultation CARDIOVASCULAR: Regular S1 S2, GI: soft, normoactive bowel sounds, : No Renal angle tenderness; EXTREMITIES: No edema, no clubbing, MUSCULOSKELETAL: Significant deformities involving both hands from RA NEURO: Awake; no lateralizing signs. SKIN: No Rash PSYCH; Flat affect Weight / BMI Weight Weight: 50.712 kg Body Mass Index (BMI) 18.6 ABG / Lab / Microbiology Data 12/06/24 05:22 12/06/24 05:22 Laboratory: Laboratory Results - last 24 hr 12/06/24 05:22: WBC 3.3 L, RBC 3.81 L, Hgb 12.8, Hct 37.2, MCV 97.6, MCH 33.6 H,MCHC 34.4, RDW Std Deviation 51.0 H, RDW Coeff of Sharad 14.2, Plt Count 79 L, MPV 12.0, Immature Gran % (Auto) 0.600, Neut % (Auto) 50.3, Lymph % (Auto) 26.8, [place] % (Auto) 19.0 H, Eos % (Auto) 2.7, Baso % (Auto) 0.6, Absolute Neuts (auto) 1.7 L, Absolute Lymphs (auto) 0.89, Nucleated RBC % 0, Sodium 135, Potassium 4.2, Chloride 104, Carbon Dioxide 17.8 L, Anion Gap 13, BUN 28 H, Creatinine 1.14, Estim Creat Clear Calc 27.31 L, Est GFR (MDRD) Non-Af 46 L, BUN/CreatinineRatio 24.9 H, Glucose 83, Calcium 8.4, Phosphorus 3.9, Magnesium 2.2 Microbiology: Microbiology 12/01/24 10:25 Urine, Clean Catch Urine Culture - Final Presumptive E. coli Mixed Gram Positive Organisms Radiography Diagnostic Testing: Radiology Impression Cervical Spine MRI 12/05/24 06:00 IMPRESSION: Multilevel degenerate changes without significant canal stenosis. Moderate right foramina stenosis at C4-C5. Right lung pleural effusion with airspace opacity, indeterminate. Please correlate with chest x-ray or CT chest. Reading Location: [facility] D/C Instructions Discharge Activity: Return to Normal Activity Call your doctor if you observe: Fever of 101 or Higher, Shortness of breath, Fainting spells and Chest pain DC O2, CPAP, BIPAP Needs Home O2 Discharge instructions: No Meaningful Use Info Meaningful Use Meaningful Use Diagnoses (Choose all that apply): None applicable Discharge Plan Admission Admit Date/Time: 12/02/24 17:28 Attending Provider: Ajith Quiñones Primary Care Provider: Linda Mao Consulting Providers: Sean Thornton; Savi Patel; Marga Butcher Discharge Orders/Prescriptions Prescriptions: New atorvastatin 20 mg Tablet 20 mg PO QHS Qty: 60 0RF amiodarone 200 mg Tablet 200 mg PO BIDCM Qty: 120 0RF metoprolol tartrate 25 mg Tablet 25 mg PO BID Qty: 120 0RF Continued mirtazapine 30 mg tablet 45 mg PO DAILY apixaban 2.5 mg tablet 2.5 mg PO BID Qty: 180 3RF sacubitril-valsartan [Entresto] 24-26 mg tablet 1 tab PO BID Qty: 180 3RF calcium carbonate 200 mg calcium (500 mg) tablet,chewable 1,000 mg PO DAILY@0800 PRN (Reason: indigestion) levothyroxine 75 mcg tablet 100 mcg PO DAILY dapagliflozin propanediol [Farxiga] 10 mg tablet 10 mg PO QAM Qty: 90 3RF spironolactone 25 mg tablet 25 mg PO QAM Qty: 90 3RF furosemide 40 mg tablet 40 mg PO QDAY Qty: 30 11RF Discontinued metoprolol tartrate 50 mg tablet 50 mg PO BID Qty: 180 3RF amiodarone 200 mg tablet 200 mg PO DAILY Qty: 90 3RF Referrals / Follow Up: Teagan Hall MD [Med Staff - Personal Assistant] - Emeterio Lopez MD [Med Staff - Active Staff] - Within 2 Weeks (Cervical DJD) Elias Arevalo MD [Med Staff - Active Staff] - Within 1 Month Linda Mao MD [Primary Care Provider] - Within 1 Week Disposition Disposition (needs filled in before D/C Order can be placed): Home, Self Care Charges/Coding Visit Charges Inpatient E&M: 36480 Disch Hosp >30min 12/06/24 0829 <Electronically signed by Ajith Quiñones MD> Cosigner Signature (if applicable): CC: Dr. Linda Mao MD; Dr. Ajith Quiñones MD~ Signed [facility] Work Phone: 1(598) 745-447108-06-2025 Progress note Author Elias Arevalo [facility] Note Date/Time December 06, 2024 7:4 6am [facility] Medical Records Department [address] [place] [address] Progress Note - Cardiology 12/06/24 0745 MR#: [id number] Acct: [id number] Name: ROBERTO FERGUSON Rep #:[id number] : 1935 89 From: Elias Arevalo MD PCP: Dr. Linda Mao MD Status :ADM IN Location: [place] [address] Subjective Subjective Patient seen and evaluated. Still sleeping. Objective Data Vital Signs: Vital Signs Temp Pulse Resp BP Pulse Ox O2 Del Method 97.3 F L 60 18 103/48 L 97 Room Air 12/06/24 04:00 12/06/24 04:00 12/06/24 04:00 12/06/24 04:00 12/06/24 04:00 12/06/24 04:00 Oxygen Delivery Method Room Air Weight: 111 lb 12.8 oz Body Mass Index (BMI) 18.6 Intake & Output: Intake and Output for Last 24 Hours 12/04/24 12/05/24 12/06/24 23:59 23:59 23:59 Intake Total 150 / 150 660 / 660 Balance 150 / 150 660 / 660 Lab / Micro Data 12/06/24 05:22 12/06/24 05:22 Labs: Laboratory Results - last 24 hr 12/06/24 05:22: WBC 3.3 L, RBC 3.81 L, Hgb 12.8, Hct 37.2, MCV 97.6, MCH 33.6 H,MCHC 34.4, RDW Std Deviation 51.0 H, RDW Coeff of Sharad 14.2, Plt Count 79 L, MPV 12.0, Immature Gran % (Auto) 0.600, Neut % (Auto) 50.3, Lymph % (Auto) 26.8, [place] % (Auto) 19.0 H, Eos % (Auto) 2.7, Baso % (Auto) 0.6, Absolute Neuts (auto) 1.7 L, Absolute Lymphs (auto) 0.89, Nucleated RBC % 0, Sodium 135, Potassium 4.2, Chloride 104, Carbon Dioxide 17.8 L, Anion Gap 13, BUN 28 H, Creatinine 1.14, Estim Creat Clear Calc 27.31 L, Est GFR (MDRD) Non-Af 46 L, BUN/CreatinineRatio 24.9 H, Glucose 83, Calcium 8.4, Phosphorus 3.9, Magnesium 2.2 Cardiology Labs/Tests 12/06/24 05:22: WBC 3.3 L, RBC 3.81 L, Hgb 12.8, Hct 37.2, MCV 97.6, MCH 33.6 H,MCHC 34.4, Plt Count 79 L, MPV 12.0, Immature Gran % (Auto) 0.600, Neut % (Auto)50.3, Lymph % (Auto) 26.8, [place] % (Auto) 19.0 H, Eos % (Auto) 2.7, Baso % (Auto)0.6, Absolute Neuts (auto) 1.7 L, Nucleated RBC % 0, Sodium 135, Potassium 4.2, Chloride 104, Carbon Dioxide 17.8 L, Anion Gap 13, BUN 28 H, Creatinine 1.14, Est GFR (MDRD) Non-Af 46 L, BUN/Creatinine Ratio 24.9 H, Glucose 83, Calcium 8.4,Phosphorus 3.9, Magnesium 2.2 Rhythm: EKG: ECHO: Stress Test: Cardiac Cath: PCI: CT Surgery: Holter monitor: EPS: PPM: CXR: Chest CT Scan: Radiography Diagnostic Testing: Radiology Impression Cervical Spine MRI 12/05/24 06:00 IMPRESSION: Multilevel degenerate changes without significant canal stenosis. Moderate right foramina stenosis at C4-C5. Right lung pleural effusion with airspace opacity, indeterminate. Please correlate with chest x-ray or CT chest. Reading Location: [facility] Physical Exam Const no apparent distress General Appearance: cooperative HEENT hearing grossly normal bilaterally Head and Scalp: atraumatic Eyes EOMs intact bilaterally Neck General: normal visual inspection Chest inspection of chest normal and palpation of chest normal Resp normal respiratory effort Auscultation: clear to auscultation bilaterally Cardio regular rate, regular rhythm, S1 normal heart sound and S2 normal heart sound Jugular Venous Distention: JVD GI normal to inspection, nondistended, normoactive bowel sounds Extremity normal capillary refill and no pedal edema Peripheral Pulses: Yes pulses 2+ throughout and femoral pulses present Skin no rashes or lesions noted Neuro oriented x3 and CN's II-XII intact bilaterally Psych Appearance: grossly normal and appropriate Assessment & Plan Assessment/Plan (1) Complete heart block: PLAN: s/p Pacemaker in place. (2) AF (paroxysmal atrial fibrillation): PLAN: - Patient with history of p. afib s/p cardioversion in the past, has been on metoprolol and amiodarone to maintain sinus rhythm. - Pacemaker interrogation showed increase episodes of atrial flutter/atrial fibrillation. - Pacemaker interrogation also showed under sensing that was adjusted yesterday after which the patient felt better. - This has been adjusted and amiodarone added and she is currently AV sequentially paced. (3) Congestive heart failure (CHF): QUALIFIERS: Heart failure type: systolic Heart failure chronicity: chronic Qualified Code(s): I50.22 - Chronic systolic (congestive) heart failure PLAN: - Patient has chronic cardiomyopathy likely ischemic given history of coronary disease with wall motion normalities noted on 2D echo that was done during this admission with a EF estimated to be 35% and wall motion normalities as listed above in the echo findings. - RV is dilated with preserved function, with findings suggestive of RV volume overload. - Continue metoprolol and uptitrate as tolerated, will hold off on Entresto and afterload reducing agents, monitor blood pressure until tachycardia is controlled and blood pressure is more stable. - Patient appears to be euvolemic no need for diuresis will continue to monitor. This can be followed up as an outpatient. (4) Non-rheumatic mitral regurgitation: PLAN: - Secondary mitral regurgitation with left atrial dilation likely secondary to underlying cardiomyopathy (5) History of coronary artery stent placement: PLAN: - CAD s/p PCI - Appears stable, no chest pain. - tpn mildly elevated. - Will continue aspirin to Eliquis 2.5 and will add Lipitor. (6) Hyperlipidemia: QUALIFIERS: Hyperlipidemia type: mixed hyperlipidemia Qualified Code(s): E78.2 - Mixed hyperlipidemia PLAN: - Will start statins. (7) Pacemaker: PLAN: Pacemaker interrogated today and is noted to be functioning well. 12/06/24745 <Electronically signed by Elias Arevalo MD> Cosigner Signature (if applicable): CC: ~ Signed [facility] Work Phone: 1(207) 958-804408-06-2025 Progress note Author Elias Arevalo [facility] Note Date/Time December 06, 2024 7:4 6am [facility] Medical Records Department [address] [place] [address] Progress Note - Cardiology 12/06/2445 MR#: [id number] Acct: [id number] Name: ROBERTO FERGUSON Rep #:[id number] : 1935 89 From: Elias Arevalo MD PCP: Dr. Linda Mao MD Status :ADM IN Location: [place] [address] Subjective Subjective Patient seen and evaluated. Still sleeping. Objective Data Vital Signs: Vital Signs Temp Pulse Resp BP Pulse Ox O2 Del Method 97.3 F L 60 18 103/48 L 97 Room Air 12/06/24 04:00 12/06/24 04:00 12/06/24 04:00 12/06/24 04:00 12/06/24 04:00 12/06/24 04:00 Oxygen Delivery Method Room Air Weight: 111 lb 12.8 oz Body Mass Index (BMI) 18.6 Intake & Output: Intake and Output for Last 24 Hours 12/04/24 12/05/24 12/06/24 23:59 23:59 23:59 Intake Total 150 / 150 660 / 660 Balance 150 / 150 660 / 660 Lab / Micro Data 12/06/24 05:22 12/06/24 05:22 Labs: Laboratory Results - last 24 hr 12/06/24 05:22: WBC 3.3 L, RBC 3.81 L, Hgb 12.8, Hct 37.2, MCV 97.6, MCH 33.6 H,MCHC 34.4, RDW Std Deviation 51.0 H, RDW Coeff of Sharad 14.2, Plt Count 79 L, MPV 12.0, Immature Gran % (Auto) 0.600, Neut % (Auto) 50.3, Lymph % (Auto) 26.8, [place] % (Auto) 19.0 H, Eos % (Auto) 2.7, Baso % (Auto) 0.6, Absolute Neuts (auto) 1.7 L, Absolute Lymphs (auto) 0.89, Nucleated RBC % 0, Sodium 135, Potassium 4.2, Chloride 104, Carbon Dioxide 17.8 L, Anion Gap 13, BUN 28 H, Creatinine 1.14, Estim Creat Clear Calc 27.31 L, Est GFR (MDRD) Non-Af 46 L, BUN/CreatinineRatio 24.9 H, Glucose 83, Calcium 8.4, Phosphorus 3.9, Magnesium 2.2 Cardiology Labs/Tests 12/06/24 05:22: WBC 3.3 L, RBC 3.81 L, Hgb 12.8, Hct 37.2, MCV 97.6, MCH 33.6 H,MCHC 34.4, Plt Count 79 L, MPV 12.0, Immature Gran % (Auto) 0.600, Neut % (Auto)50.3, Lymph % (Auto) 26.8, [place] % (Auto) 19.0 H, Eos % (Auto) 2.7, Baso % (Auto)0.6, Absolute Neuts (auto) 1.7 L, Nucleated RBC % 0, Sodium 135, Potassium 4.2, Chloride 104, Carbon Dioxide 17.8 L, Anion Gap 13, BUN 28 H, Creatinine 1.14, Est GFR (MDRD) Non-Af 46 L, BUN/Creatinine Ratio 24.9 H, Glucose 83, Calcium 8.4,Phosphorus 3.9, Magnesium 2.2 Rhythm: EKG: ECHO: Stress Test: Cardiac Cath: PCI: CT Surgery: Holter monitor: EPS: PPM: CXR: Chest CT Scan: Radiography Diagnostic Testing: Radiology Impression Cervical Spine MRI 12/05/24 06:00 IMPRESSION: Multilevel degenerate changes without significant canal stenosis. Moderate right foramina stenosis at C4-C5. Right lung pleural effusion with airspace opacity, indeterminate. Please correlate with chest x-ray or CT chest. Reading Location: [facility] Physical Exam Const no apparent distress General Appearance: cooperative HEENT hearing grossly normal bilaterally Head and Scalp: atraumatic Eyes EOMs intact bilaterally Neck General: normal visual inspection Chest inspection of chest normal and palpation of chest normal Resp normal respiratory effort Auscultation: clear to auscultation bilaterally Cardio regular rate, regular rhythm, S1 normal heart sound and S2 normal heart sound Jugular Venous Distention: JVD GI normal to inspection, nondistended, normoactive bowel sounds Extremity normal capillary refill and no pedal edema Peripheral Pulses: Yes pulses 2+ throughout and femoral pulses present Skin no rashes or lesions noted Neuro oriented x3 and CN's II-XII intact bilaterally Psych Appearance: grossly normal and appropriate Assessment & Plan Assessment/Plan (1) Complete heart block: PLAN: s/p Pacemaker in place. (2) AF (paroxysmal atrial fibrillation): PLAN: - Patient with history of p. afib s/p cardioversion in the past, has been on metoprolol and amiodarone to maintain sinus rhythm. - Pacemaker interrogation showed increase episodes of atrial flutter/atrial fibrillation. - Pacemaker interrogation also showed under sensing that was adjusted yesterday after which the patient felt better. - This has been adjusted and amiodarone added and she is currently AV sequentially paced. (3) Congestive heart failure (CHF): QUALIFIERS: Heart failure type: systolic Heart failure chronicity: chronic Qualified Code(s): I50.22 - Chronic systolic (congestive) heart failure PLAN: - Patient has chronic cardiomyopathy likely ischemic given history of coronary disease with wall motion normalities noted on 2D echo that was done during this admission with a EF estimated to be 35% and wall motion normalities as listed above in the echo findings. - RV is dilated with preserved function, with findings suggestive of RV volume overload. - Continue metoprolol and uptitrate as tolerated, will hold off on Entresto and afterload reducing agents, monitor blood pressure until tachycardia is controlled and blood pressure is more stable. - Patient appears to be euvolemic no need for diuresis will continue to monitor. This can be followed up as an outpatient. (4) Non-rheumatic mitral regurgitation: PLAN: - Secondary mitral regurgitation with left atrial dilation likely secondary to underlying cardiomyopathy (5) History of coronary artery stent placement: PLAN: - CAD s/p PCI - Appears stable, no chest pain. - tpn mildly elevated. - Will continue aspirin to Eliquis 2.5 and will add Lipitor. (6) Hyperlipidemia: QUALIFIERS: Hyperlipidemia type: mixed hyperlipidemia Qualified Code(s): E78.2 - Mixed hyperlipidemia PLAN: - Will start statins. (7) Pacemaker: PLAN: Pacemaker interrogated today and is noted to be functioning well. 12/06/24 0746 <Electronically signed by Elias Arevalo MD> Cosigner Signature (if applicable): CC: ~ Signed [facility] Work Phone: 1(335) 127-436808-06-2025 Discharge summary [facility] Medical Records Department [address] [place] [address] Discharge Summary 12/06/24 0821 MR#: [id number] Acct: [id number] Name: ROBERTO FERGUSON Rep #:[id number] : 1935 89 From: Ajith Quiñones MD PCP: Dr. Linda Mao MD Status :ADM IN Location: [place] [address] Providers Date of Admission: 12/02/24 Date of Discharge: 12/06/24 Primary Care Physician: Dr. Linda Mao MD Consultations 12/02/24 17:23 Consult: Cardiology Routine Consulting Provider: Savi Patel Reason for Consult: presyncope, new wallmotion abn on echo EMERGENT Consult: No MD Notified: Yes Date Notified: 12/02/24 Time Notified: 17:31 Method of Notification: Verbal Reason For Visit: WEAKNESS AND DIZZINESS W/FALLS Diagnosis Discharge Diagnosis (1) Complete heart block: Status: Acute Code(s): I44.2 - Atrioventricular block, complete (2) AF (paroxysmal atrial fibrillation): Status: Chronic Code(s): I48.0 - Paroxysmal atrial fibrillation (3) Congestive heart failure (CHF): Status: Acute Code(s): I50.9 - Heart failure, unspecified Qualifiers: Heart failure chronicity: chronic Heart failure type: systolic Qualified Code(s): I50.22 - Chronic systolic (congestive) heart failure (4) Non-rheumatic mitral regurgitation: Status: Acute Code(s): I34.0 - Nonrheumatic mitral (valve) insufficiency (5) History of coronary artery stent placement: Status: Chronic Code(s): Z95.5 - Presence of coronary angioplasty implant and graft (6) Hyperlipidemia: Status: Acute Code(s): E78.5 - Hyperlipidemia, unspecified Qualifiers: Hyperlipidemia type: mixed hyperlipidemia Qualified Code(s): E78.2 - Mixed hyperlipidemia (7) Pacemaker: Status: Acute Code(s): Z95.0 - Presence of cardiac pacemaker Plan Patient is an 89-year-old lady admitted with dizziness and lightheadedness with fall at home 1. Giddiness ? Etiology not clear. Patient was thought to be orthostatic rehydrated with IV fluids but symptoms persisted also had her pacemaker checked and was found to befunctioning as programmed. There was then a suspicion of possible DJD involvingthe atlantoaxial cervical spine as a result of her rheumatoidarthritis. An MRIhas subsequently been ordered for further evaluation ? MRI did demonstrate Multilevel degenerate changes without significant canal stenosis.Moderate right foramina stenosis at C4-C5. Plan is for patient to follow-up with Dr. Lopez with spine surgery as 2. 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 Status post pacemaker placement 3. Paroxysmal atrial fibrillation ? Rate controlled on systemic anticoagulation with apixaban 4. Chronic heart failure with reduced ejection fraction ? Last echo from 724 demonstrated EF of 35% patient remains on guideline directed medical therapy ? Did reintroduce patient Entresto. Patient was apparently taking more Lasix because of bilateral lower extremity swelling. She was counseled on the need tostick to prescribed dosing 5. Hypertension ? Blood pressure controlled, home medications continued with dose adjustment as needed 6. Hypothyroidism ? Patient is on levothyroxine home dose continued 7. History of breast cancer s/p mastectomy and chemotherapy ? Follows with oncology, last office visit in October. Currently under observation. No inpatient needs, continue outpatient follow-up. 8. RA ? Patient with history of longstanding RA. Has significant ulnar drift of her fingers consistent with RA and deformities. Continue outpatient injectables after discharge. 9. DVT prophylaxis ? Patient is on apixaban Time spent in the patient's overall evaluation,decision-making process, review of diagnostic data, adjustment of management, discussion with other providers, nursing nursing and ancillary staff involved in patient's care documentation, 36 Minutes Medications at Discharge Home Medications levothyroxine 75 mcg tablet 100 mcg PO DAILY thyroid 04/06/23 calcium carbonate 1,000 mg PO DAILY@0800 PRN indigestion 04/07/23 dapagliflozin propanediol 10 mg tablet (Farxiga) 10 mg PO QAM heart #90 tabs 02/01/24 spironolactone 25 mg tablet 25 mg PO QAM heart #90 tabs 06/20/24 furosemide 40 mg tablet 40 mg PO QDAY #30 tabs 07/26/24 apixaban 2.5 mg tablet 2.5 mg PO BID blood thinner #180 tabs 09/12/24 mirtazapine 30 mg tablet 45 mg PO DAILY 09/12/24 sacubitril 24 mg-valsartan 26 mg tablet (Entresto) 1 tab PO BID heart #180 tabs 09/12/24 amiodarone 200 mg tablet 200 mg PO BIDCM #120 tabs 12/06/24 atorvastatin 20 mg tablet 20 mg PO QHS #60 tabs 12/06/24 metoprolol tartrate 25 mg tablet 25 mg PO BID #120 tabs 12/06/24 Physical Exam Narrative GENERAL: cooperative HEENT: Atraumatic; normocephalic EYES; Anicteric, Normal Conjunctiva NECK; supple, normal thyroid, RESPIRATORY: Diminished to auscultation CARDIOVASCULAR: Regular S1 S2, GI: soft, normoactive bowel sounds, : No Renal angle tenderness; EXTREMITIES: No edema, no clubbing, MUSCULOSKELETAL: Significant deformities involving both hands from RA NEURO: Awake; no lateralizing signs. SKIN: No Rash PSYCH; Flat affect Weight / BMI Weight Weight: 50.712 kg Body Mass Index (BMI) 18.6 ABG / Lab / Microbiology Data 12/06/24 05:22 12/06/24 05:22 Laboratory: Laboratory Results - last 24 hr 12/06/24 05:22: WBC 3.3 L, RBC 3.81 L, Hgb 12.8, Hct 37.2, MCV 97.6, MCH 33.6 H,MCHC 34.4, RDW Std Deviation 51.0 H, RDW Coeff of Sharad 14.2, Plt Count 79 L, MPV 12.0, Immature Gran % (Auto) 0.600, Neut % (Auto) 50.3, Lymph % (Auto) 26.8, [place] % (Auto) 19.0 H, Eos % (Auto) 2.7, Baso % (Auto) 0.6, Absolute Neuts (auto) 1.7 L, Absolute Lymphs (auto) 0.89, Nucleated RBC % 0, Sodium 135, Potassium 4.2,Chloride 104, Carbon Dioxide 17.8 L, Anion Gap 13, BUN 28 H, Creatinine 1.14, Estim Creat Clear Calc 27.31 L, Est GFR (MDRD) Non-Af 46 L, BUN/CreatinineRatio 24.9 H, Glucose 83, Calcium 8.4, Phosphorus 3.9, Magnesium 2.2 Microbiology: Microbiology 12/01/24 10:25 Urine, Clean Catch Urine Culture - Final Presumptive E. coli Mixed Gram Positive Organisms Radiography Diagnostic Testing: Radiology Impression Cervical Spine MRI 12/05/24 06:00 IMPRESSION: Multilevel degenerate changes without significant canal stenosis. Moderate right foramina stenosis at C4-C5. Right lung pleural effusion with airspace opacity, indeterminate. Please correlate with chest x-rayor CT chest. Reading Location: [facility] D/C Instructions Discharge Activity: Return to Normal Activity Call your doctor if you observe: Fever of 101 or Higher, Shortness of breath, Fainting spells and Chest pain DC O2, CPAP, BIPAP Needs Home O2 Discharge instructions: No Meaningful Use Info Meaningful Use Meaningful Use Diagnoses (Choose all that apply): None applicable Discharge Plan Admission Admit Date/Time: 12/02/24 17:28 Attending Provider: Ajith Quiñones Primary Care Provider: Linda Mao Consulting Providers: Sean Thornton; Savi Patel; Marga Butcher Discharge Orders/Prescriptions Prescriptions: New atorvastatin 20 mg Tablet 20 mg PO QHS Qty: 60 0RF amiodarone 200 mg Tablet 200 mg PO BIDCM Qty: 120 0RF metoprolol tartrate 25 mg Tablet 25 mg PO BID Qty: 120 0RF Continued mirtazapine 30 mg tablet 45 mg PO DAILY apixaban 2.5 mg tablet 2.5 mg PO BID Qty: 180 3RF sacubitril-valsartan [Entresto] 24-26 mg tablet 1 tab PO BID Qty: 180 3RF calcium carbonate 200 mg calcium (500 mg) tablet,chewable 1,000 mg PO DAILY@0800 PRN (Reason: indigestion) levothyroxine 75 mcg tablet 100 mcg PO DAILY dapagliflozin propanediol [Farxiga] 10 mg tablet 10 mg PO QAM Qty: 90 3RF spironolactone 25 mg tablet 25 mg PO QAM Qty: 90 3RF furosemide 40 mg tablet 40 mg PO QDAY Qty: 30 11RF Discontinued metoprolol tartrate 50 mg tablet 50 mg PO BID Qty: 180 3RF amiodarone 200 mg tablet 200 mg PO DAILY Qty: 90 3RF Referrals / Follow Up: Teagan Hall MD [Med Staff - Personal Assistant] - Emeterio Lopez MD [Med Staff - Active Staff] - Within 2 Weeks (Cervical DJD) Elias Arevalo MD [Med Staff - Active Staff] - Within 1 Month Linda Mao MD [Primary Care Provider] - Within 1 Week Disposition Disposition (needs filled in before D/C Order can be placed): Home, Self Care Charges/Coding Visit Charges Inpatient E&M: 28126 Disch Hosp >30min 12/06/24 0829 Cosigner Signature (if applicable): CC: Dr. Linda Mao MD; Dr. Ajith Quiñones MD~ Signed [facility] Progress note [facility] Medical Records Department [address] [place] [address] Progress Note - Cardiology 12/06/24 0745 MR#: [id number] Acct: [id number] Name: ROBERTO FERGUSON Rep #:[id number] : 1935 89 From: Elias Arevalo MD PCP: Dr. Linda Mao MD Status :ADM IN Location: [place] [address] Subjective Subjective Patient seen and evaluated. Still sleeping. Objective Data Vital Signs: Vital Signs Temp Pulse Resp BP Pulse Ox O2 Del Method 97.3 F L 60 18 103/48 L 97 Room Air 12/06/24 04:00 08/06/25 04:00 12/06/24 04:00 12/06/24 04:00 12/06/24 04:00 12/06/24 04:00 Oxygen Delivery Method Room Air Weight: 111 lb 12.8 oz Body Mass Index (BMI) 18.6 Intake & Output: Intake and Output for Last 24 Hours 12/04/24 12/05/24 12/06/24 23:59 23:59 23:59 Intake Total 150 / 150 660 / 660 Balance 150 / 150 660 / 660 Lab / Micro Data 12/06/24 05:22 12/06/24 05:22 Labs: Laboratory Results - last 24 hr 12/06/24 05:22: WBC 3.3 L, RBC 3.81 L, Hgb 12.8, Hct 37.2, MCV 97.6, MCH 33.6 H,MCHC 34.4, RDW Std Deviation 51.0 H, RDW Coeff of Sharad 14.2, Plt Count 79 L, MPV 12.0, Immature Gran % (Auto) 0.600, Neut % (Auto) 50.3, Lymph % (Auto) 26.8, [place] % (Auto) 19.0 H, Eos % (Auto) 2.7, Baso % (Auto) 0.6, Absolute Neuts (auto) 1.7 L, Absolute Lymphs (auto) 0.89, Nucleated RBC % 0, Sodium 135, Potassium 4.2,Chloride 104, Carbon Dioxide 17.8 L, Anion Gap 13, BUN 28 H, Creatinine 1.14, Estim Creat Clear Calc 27.31 L, Est GFR (MDRD) Non-Af 46 L, BUN/CreatinineRatio 24.9 H, Glucose 83, Calcium 8.4, Phosphorus 3.9, Magnesium 2.2 Cardiology Labs/Tests 12/06/24 05:22: WBC 3.3 L, RBC 3.81 L, Hgb 12.8, Hct 37.2, MCV 97.6, MCH 33.6 H,MCHC 34.4, Plt Count 79 L, MPV 12.0, Immature Gran % (Auto) 0.600, Neut % (Auto)50.3, Lymph % (Auto) 26.8, [place] % (Auto) 19.0 H, Eos % (Auto) 2.7, Baso % (Auto)0.6, Absolute Neuts (auto) 1.7 L, Nucleated RBC % 0, [id number], Potassium 4.2, Chloride 104, Carbon Dioxide 17.8 L, Anion Gap 13, BUN 28 H, Creatinine 1.14, Est GFR (MDRD) Non-Af 46 L, BUN/Creatinine Ratio 24.9 H, Glucose 83, Calcium 8.4,Phosphorus 3.9, Magnesium 2.2 Rhythm: EKG: ECHO: Stress Test: Cardiac Cath: PCI: CT Surgery: Holter monitor: EPS: PPM: CXR: Chest CT Scan: Radiography Diagnostic Testing: Radiology Impression Cervical Spine MRI 12/05/24 06:00 IMPRESSION: Multilevel degenerate changes without significant canal stenosis. Moderate right foramina stenosis at C4-C5. Right lung pleural effusion with airspace opacity, indeterminate. Please correlate with chest x-rayor CT chest. Reading Location: [facility] Physical Exam Const no apparent distress General Appearance: cooperative HEENT hearing grossly normal bilaterally Head and Scalp: atraumatic Eyes EOMs intact bilaterally Neck General: normal visual inspection Chest inspection of chest normal and palpation of chest normal Resp normal respiratory effort Auscultation: clear to auscultation bilaterally Cardio regular rate, regular rhythm, S1 normal heart sound and S2 normal heart sound Jugular Venous Distention: JVD GI normal to inspection, nondistended, normoactive bowel sounds Extremity normal capillary refill and no pedal edema Peripheral Pulses: Yes pulses 2+ throughout and femoral pulses present Skin no rashes or lesions noted Neuro oriented x3 and CN's II-XII intact bilaterally Psych Appearance: grossly normal and appropriate Assessment & Plan Assessment/Plan (1) Complete heart block: PLAN: s/p Pacemaker in place. (2) AF (paroxysmal atrial fibrillation): PLAN: - Patient with history of p. afib s/p cardioversion in the past, has been on metoprolol and amiodarone to maintain sinus rhythm. - Pacemaker interrogation showed increase episodes of atrial flutter/atrial fibrillation. - Pacemaker interrogation also showed under sensing that was adjusted yesterday after which the patient felt better. - This has been adjusted and amiodarone added and she is currently AV sequentially paced. (3) Congestive heart failure (CHF): QUALIFIERS: Heart failure type: systolic Heart failure chronicity: chronic Qualified Code(s): I50.22 - Chronic systolic (congestive) heart failure PLAN: - Patient has chronic cardiomyopathy likely ischemic given history of coronary disease with wall motion normalities noted on 2D echo that was done during this admission with a EF estimated to be 35% and wall motion normalities as listed above in the echo findings. - RV is dilated with preserved function, with findings suggestive of RV volume overload. - Continue metoprolol and uptitrate as tolerated, will hold off on Entresto and afterload reducing agents, monitor blood pressure until tachycardia is controlled and blood pressure is more stable. - Patient appears to be euvolemic no need for diuresis will continue to monitor. This can be followed up as an outpatient. (4) Non-rheumatic mitral regurgitation: PLAN: - Secondary mitral regurgitation with left atrial dilation likely secondary to underlying cardiomyopathy (5) History of coronary artery stent placement: PLAN: - CAD s/p PCI - Appears stable, no chest pain. - tpn mildly elevated. - Will continue aspirin to Eliquis 2.5 and will add Lipitor. (6) Hyperlipidemia: QUALIFIERS: Hyperlipidemia type: mixed hyperlipidemia Qualified Code(s): E78.2 - Mixed hyperlipidemia PLAN: - Will start statins. (7) Pacemaker: PLAN: Pacemaker interrogated today and is noted to be functioning well. 12/06/24 0746 Cosigner Signature (if applicable): CC: ~ Signed [facility]08-05-2025 Progress note Author Ajith Quiñones [facility] Note Date/Time December 05, 2024 9:2 9am [facility] Medical Records Department [address] [place] [address] Progress Note - Hospitalist 12/05/24 0921 MR#: [id number] Acct: [id number] Name: ROBERTO FERGUSON Rep #:[id number] : 1935 89 From: Ajith Quiñones MD PCP: Dr. Linda Mao MD Status :ADM IN Location: [place] [address]- Reason for Visit Chief Complaint: Dizziness/lightheadedness with gait unsteadiness and fall at home Subjective Subjective Patient is an 89-year-old lady admitted with dizziness and lightheadedness with fall at home Objective Data Objective Data Vital Signs: Vital Signs Temp Pulse Resp BP Pulse Ox O2 Del Method 97.6 F L 60 17 112/66 97 Room Air 12/05/24 09:00 12/05/24 09:05 12/05/24 09:00 12/05/24 09:00 12/05/24 09:00 12/05/24 09:00 Oxygen Delivery Method Room Air Weight: 50.712 kg Body Mass Index (BMI) 18.6 Intake & Output: Intake and Output for Last 24 Hours 12/03/24 12/04/24 12/05/24 23:59 23:59 23:59 Intake Total 850 / 970 150 / 150 Balance 850 / 970 150 / 150 Lab / Micro Data 12/05/24 04:55 12/05/24 04:55 Labs: Laboratory Results - last 24 hr 12/05/24 04:55: WBC 3.1 L, RBC 3.94 L, Hgb 13.2, Hct 38.2, MCV 97.0, MCH 33.5 H,MCHC 34.6, RDW Std Deviation 50.7 H, RDW Coeff of Sharad 14.3, Plt Count 87 L, MPV 12.1 H, Sodium 134, Potassium 4.0, Chloride 103, Carbon Dioxide 20.5 L, Anion Gap 11, BUN 24 H, Creatinine 1.13, Estim Creat Clear Calc 27.55 L, Est GFR (MDRD) Non-Af 47 L, BUN/Creatinine Ratio 21.1 H, Glucose 81, Calcium 8.3 Micro: Microbiology 12/01/24 10:25 Urine, Clean Catch Urine Culture - Final Presumptive E. coli Mixed Gram Positive Organisms Radiography Diagnostic Testing: Radiology Impression Carotid Duplex 12/03/24 10:45 Interpretation Summary Mild (<50%) stenosis right extracranial internal carotid. Mild (<50%) stenosis left extracranial internal carotid. Patent and antegrade vertebrals bilaterally. Ordering Physician: Marga Butcher Referring Physician: Linda Mao Performed By: Gianna Londono, BAHMAN, RVT Physical Exam Narrative GENERAL: cooperative HEENT: Atraumatic; normocephalic EYES; Anicteric, Normal Conjunctiva NECK; supple, normal thyroid, RESPIRATORY: Diminished to auscultation CARDIOVASCULAR: Regular S1 S2, GI: soft, normoactive bowel sounds, : No Renal angle tenderness; EXTREMITIES: No edema, no clubbing, MUSCULOSKELETAL: Significant deformities involving both hands from RA NEURO: Awake; no lateralizing signs. SKIN: No Rash PSYCH; Flat affect Assessment & Plan Assessment/Plan (1) Dizziness: (2) Fall: PLAN: Plan Patient is an 89-year-old lady admitted with dizziness and lightheadedness with fall at home 1. Giddiness ? Etiology not clear. Patient was thought to be orthostatic rehydrated with IV fluids but symptoms persisted also had her pacemaker checked and was found to befunctioning as programmed. 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 An MRIhas subsequently been ordered for further evaluation 2. 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 Status post pacemaker placement 3. Paroxysmal atrial fibrillation ? Rate controlled on systemic anticoagulation with apixaban 4. Chronic heart failure with reduced ejection fraction ? Last echo from 724 demonstrated EF of 35% patient remains on guideline directed medical therapy 5. Hypertension ? Blood pressure controlled, home medications continued with dose adjustment as needed 6. Hypothyroidism ? Patient is on levothyroxine home dose continued 7. History of breast cancer s/p mastectomy and chemotherapy ? Follows with oncology, last office visit in October. Currently under observation. No inpatient needs, continue outpatient follow-up. 8. RA ? Patient with history of longstanding RA. Has significant ulnar drift of her fingers consistent with RA and deformities. Continue outpatient injectables after discharge. 9. DVT prophylaxis ? Patient is on apixaban Time spent in the patient's overall evaluation,decision-making process, review of diagnostic data, adjustment of management, discussion with other providers, nursing nursing and ancillary staff involved in patient's care documentation, 36 Minutes Charges/Coding Visit Charges Inpatient E&M: 88458 Subs Hosp L2 12/05/24 6415 <Electronically signed by Ajith Quiñones MD> Cosigner Signature (if applicable): CC: ~ Signed [facility] Work Phone: 1(897) 607-458108-05-2025 Progress note Author Ajith Quiñones [facility] Note Date/Time December 05, 2024 9:2 9am [facility] Medical Records Department [address] [place] [address] Progress Note - Hospitalist 12/05/24920 MR#: [id number] Acct: [id number] Name: ROBERTO FERGUSON Rep #:[id number] : 1935 89 From: Ajith Quiñones MD PCP: Dr. Linda Mao MD Status :ADM IN Location: [place] [address] Reason for Visit Chief Complaint: Dizziness/lightheadedness with gait unsteadiness and fall at home Subjective Subjective Patient is an 89-year-old lady admitted with dizziness and lightheadedness with fall at home Objective Data Objective Data Vital Signs: Vital Signs Temp Pulse Resp BP Pulse Ox O2 Del Method 97.6 F L 60 17 112/66 97 Room Air 12/05/24 09:00 12/05/24 09:05 12/05/24 09:00 12/05/24 09:00 12/05/24 09:00 12/05/24 09:00 Oxygen Delivery Method Room Air Weight: 50.712 kg Body Mass Index (BMI) 18.6 Intake & Output: Intake and Output for Last 24 Hours 12/03/24 12/04/24 12/05/24 23:59 23:59 23:59 Intake Total 850 / 970 150 / 150 Balance 850 / 970 150 / 150 Lab / Micro Data 12/05/24 04:55 12/05/24 04:55 Labs: Laboratory Results - last 24 hr 12/05/24 04:55: WBC 3.1 L, RBC 3.94 L, Hgb 13.2, Hct 38.2, MCV 97.0, MCH 33.5 H,MCHC 34.6, RDW Std Deviation 50.7 H, RDW Coeff of Sharad 14.3, Plt Count 87 L, MPV 12.1 H, Sodium 134, Potassium 4.0, Chloride 103, Carbon Dioxide 20.5 L, Anion Gap 11, BUN 24 H, Creatinine 1.13, Estim Creat Clear Calc 27.55 L, Est GFR (MDRD) Non-Af 47 L, BUN/Creatinine Ratio 21.1 H, Glucose 81, Calcium 8.3 Micro: Microbiology 12/01/24 10:25 Urine, Clean Catch Urine Culture - Final Presumptive E. coli Mixed Gram Positive Organisms Radiography Diagnostic Testing: Radiology Impression Carotid Duplex 12/03/24 10:45 Interpretation Summary Mild (<50%) stenosis right extracranial internal carotid. Mild (<50%) stenosis left extracranial internal carotid. Patent and antegrade vertebrals bilaterally. Ordering Physician: Marga Butcher Referring Physician: Linda Mao Performed By: Gianna Londono, BAHMAN, RVT Physical Exam Narrative GENERAL: cooperative HEENT: Atraumatic; normocephalic EYES; Anicteric, Normal Conjunctiva NECK; supple, normal thyroid, RESPIRATORY: Diminished to auscultation CARDIOVASCULAR: Regular S1 S2, GI: soft, normoactive bowel sounds, : No Renal angle tenderness; EXTREMITIES: No edema, no clubbing, MUSCULOSKELETAL: Significant deformities involving both hands from RA NEURO: Awake; no lateralizing signs. SKIN: No Rash PSYCH; Flat affect Assessment & Plan Assessment/Plan (1) Dizziness: (2) Fall: PLAN: Plan Patient is an 89-year-old lady admitted with dizziness and lightheadedness with fall at home 1. Giddiness ? Etiology not clear. Patient was thought to be orthostatic rehydrated with IV fluids but symptoms persisted also had her pacemaker checked and was found to befunctioning as programmed. 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 An MRIhas subsequently been ordered for further evaluation 2. 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 Status post pacemaker placement 3. Paroxysmal atrial fibrillation ? Rate controlled on systemic anticoagulation with apixaban 4. Chronic heart failure with reduced ejection fraction ? Last echo from 724 demonstrated EF of 35% patient remains on guideline directed medical therapy 5. Hypertension ? Blood pressure controlled, home medications continued with dose adjustment as needed 6. Hypothyroidism ? Patient is on levothyroxine home dose continued 7. History of breast cancer s/p mastectomy and chemotherapy ? Follows with oncology, last office visit in October. Currently under observation. No inpatient needs, continue outpatient follow-up. 8. RA ? Patient with history of longstanding RA. Has significant ulnar drift of her fingers consistent with RA and deformities. Continue outpatient injectables after discharge. 9. DVT prophylaxis ? Patient is on apixaban Time spent in the patient's overall evaluation,decision-making process, review of diagnostic data, adjustment of management, discussion with other providers, nursing nursing and ancillary staff involved in patient's care documentation, 36 Minutes Charges/Coding Visit Charges Inpatient E&M: 72921 Subs Hosp L2 12/05/24 0929 <Electronically signed by Ajith Quiñones MD> Cosigner Signature (if applicable): CC: ~ Signed [facility] Work Phone: 1(114) 679-343208-05-2025 Progress note Author Elias Arevalo [facility] Note Date/Time December 05, 2024 7:5 6am [facility] Medical Records Department [address] [place] [address] Progress Note - Cardiology 12/05/24 0753 MR#: [id number] Acct: [id number] Name: ROBERTO FERGUSON Rep #:[id number] : 1935 89 From: Elias Arevalo MD PCP: Dr. Linda Mao MD Status :ADM IN Location: [place] [address] Subjective Subjective Patient seen and evaluated Objective Data Vital Signs: Vital Signs Temp Pulse Resp BP Pulse Ox O2 Del Method 97.0 F L 60 18 108/66 100 Room Air 12/05/24 03:42 12/05/24 03:42 12/05/24 03:42 12/05/24 03:42 12/05/24 03:42 12/05/24 03:42 Oxygen Delivery Method Room Air Weight: 111 lb 12.8 oz Body Mass Index (BMI) 18.6 Intake & Output: Intake and Output for Last 24 Hours 12/03/24 12/04/24 12/05/24 23:59 23:59 23:59 Intake Total 850 / 970 150 / 150 Balance 850 / 970 150 / 150 Lab / Micro Data 12/05/24 04:55 12/05/24 04:55 Labs: Laboratory Results - last 24 hr 12/05/24 04:55: WBC 3.1 L, RBC 3.94 L, Hgb 13.2, Hct 38.2, MCV 97.0, MCH 33.5 H,MCHC 34.6, RDW Std Deviation 50.7 H, RDW Coeff of Sharad 14.3, Plt Count 87 L, MPV 12.1 H, Sodium 134, Potassium 4.0, Chloride 103, Carbon Dioxide 20.5 L, Anion Gap 11, BUN 24 H, Creatinine 1.13, Estim Creat Clear Calc 27.55 L, Est GFR (MDRD) Non-Af 47 L, BUN/Creatinine Ratio 21.1 H, Glucose 81, Calcium 8.3 Cardiology Labs/Tests 12/05/24 04:55: WBC 3.1 L, RBC 3.94 L, Hgb 13.2, Hct 38.2, MCV 97.0, MCH 33.5 H,MCHC 34.6, Plt Count 87 L, MPV 12.1 H, Sodium 134, Potassium 4.0, Chloride 103, Carbon Dioxide 20.5 L, Anion Gap 11, BUN 24 H, Creatinine 1.13, Est GFR (MDRD) Non-Af 47 L, BUN/Creatinine Ratio 21.1 H, Glucose 81, Calcium 8.3 Rhythm: EKG: ECHO: Stress Test: Cardiac Cath: PCI: CT Surgery: Holter monitor: EPS: PPM: CXR: Chest CT Scan: Radiography Diagnostic Testing: Radiology Impression Carotid Duplex 12/03/24 10:45 Interpretation Summary Mild (<50%) stenosis right extracranial internal carotid. Mild (<50%) stenosis left extracranial internal carotid. Patent and antegrade vertebrals bilaterally. Ordering Physician: Marga Butcher Referring Physician: Linda Mao Performed By: Gianna Londono, RDCS, RVT Physical Exam Const alert, oriented x3 and no apparent distress General Appearance: cooperative HEENT hearing grossly normal bilaterally Head and Scalp: atraumatic Eyes EOMs intact bilaterally Neck General: normal visual inspection Chest inspection of chest normal and palpation of chest normal Resp normal respiratory effort Auscultation: clear to auscultation bilaterally Cardio regular rate, regular rhythm, S1 normal heart sound and S2 normal heart sound Jugular Venous Distention: JVD GI normal to inspection, nondistended, normoactive bowel sounds Extremity normal capillary refill and no pedal edema Peripheral Pulses: Yes pulses 2+ throughout and femoral pulses present Skin no rashes or lesions noted Neuro oriented x3 and CN's II-XII intact bilaterally Psych Appearance: grossly normal and appropriate Assessment & Plan Assessment/Plan (1) Complete heart block: PLAN: s/p Pacemaker in place. (2) AF (paroxysmal atrial fibrillation): PLAN: - Patient with history of p. afib s/p cardioversion in the past, has been on metoprolol and amiodarone to maintain sinus rhythm. - Pacemaker interrogation showed increase episodes of atrial flutter/atrial fibrillation. - Pacemaker interrogation also showed under sensing that was adjusted yesterday after which the patient felt better. - This has been adjusted and amiodarone added and she is currently AV sequentially paced. (3) Congestive heart failure (CHF): QUALIFIERS: Heart failure type: systolic Heart failure chronicity: chronic Qualified Code(s): I50.22 - Chronic systolic (congestive) heart failure PLAN: - Patient has chronic cardiomyopathy likely ischemic given history of coronary disease with wall motion normalities noted on 2D echo that was done during this admission with a EF estimated to be 35% and wall motion normalities as listed above in the echo findings. - RV is dilated with preserved function, with findings suggestive of RV volume overload. - Continue metoprolol and uptitrate as tolerated, will hold off on Entresto and afterload reducing agents, monitor blood pressure until tachycardia is controlled and blood pressure is more stable. - Patient appears to be euvolemic no need for diuresis will continue to monitor. This can be followed up as an outpatient. (4) Non-rheumatic mitral regurgitation: PLAN: - Secondary mitral regurgitation with left atrial dilation likely secondary to underlying cardiomyopathy (5) History of coronary artery stent placement: PLAN: - CAD s/p PCI - Appears stable, no chest pain. - tpn mildly elevated. - Will add aspirin to Eliquis 2.5 and will add Lipitor. (6) Hyperlipidemia: QUALIFIERS: Hyperlipidemia type: mixed hyperlipidemia Qualified Code(s): E78.2 - Mixed hyperlipidemia PLAN: - Will start statins. (7) Pacemaker: PLAN: Pacemaker interrogated today and is noted to be functioning well. 12/05/24755 <Electronically signed by Elias Arevalo MD> Cosigner Signature (if applicable): CC: ~ Signed [facility] Work Phone: [phone]) 968-292608-05-2025 Progress note Author Elias Arevalo [facility] Note Date/Time December 05, 2024 7:5 6am [facility] Medical Records Department [address] [place] [address] Progress Note - Cardiology 12/05/24752 MR#: [id number] Acct: [id number] Name: ROBERTO FERGUSON Rep #:[id number] : 1935 89 From: Elias Arevalo MD PCP: Dr. Linda Mao MD Status :ADM IN Location: [place] [address] Subjective Subjective Patient seen and evaluated Objective Data Vital Signs: Vital Signs Temp Pulse Resp BP Pulse Ox O2 Del Method 97.0 F L 60 18 108/66 100 Room Air 12/05/24 03:42 12/05/24 03:42 12/05/24 03:42 12/05/24 03:42 12/05/24 03:42 12/05/24 03:42 Oxygen Delivery Method Room Air Weight: 111 lb 12.8 oz Body Mass Index (BMI) 18.6 Intake & Output: Intake and Output for Last 24 Hours 12/03/24 12/04/24 12/05/24 23:59 23:59 23:59 Intake Total 850 / 970 150 / 150 Balance 850 / 970 150 / 150 Lab / Micro Data 12/05/24 04:55 12/05/24 04:55 Labs: Laboratory Results - last 24 hr 12/05/24 04:55: WBC 3.1 L, RBC 3.94 L, Hgb 13.2, Hct 38.2, MCV 97.0, MCH 33.5 H,MCHC 34.6, RDW Std Deviation 50.7 H, RDW Coeff of Sharad 14.3, Plt Count 87 L, MPV 12.1 H, Sodium 134, Potassium 4.0, Chloride 103, Carbon Dioxide 20.5 L, Anion Gap 11, BUN 24 H, Creatinine 1.13, Estim Creat Clear Calc 27.55 L, Est GFR (MDRD) Non-Af 47 L, BUN/Creatinine Ratio 21.1 H, Glucose 81, Calcium 8.3 Cardiology Labs/Tests 12/05/24 04:55: WBC 3.1 L, RBC 3.94 L, Hgb 13.2, Hct 38.2, MCV 97.0, MCH 33.5 H,MCHC 34.6, Plt Count 87 L, MPV 12.1 H, Sodium 134, Potassium 4.0, Chloride 103, Carbon Dioxide 20.5 L, Anion Gap 11, BUN 24 H, Creatinine 1.13, Est GFR (MDRD) Non-Af 47 L, BUN/Creatinine Ratio 21.1 H, Glucose 81, Calcium 8.3 Rhythm: EKG: ECHO: Stress Test: Cardiac Cath: PCI: CT Surgery: Holter monitor: EPS: PPM: CXR: Chest CT Scan: Radiography Diagnostic Testing: Radiology Impression Carotid Duplex 12/03/24 10:45 Interpretation Summary Mild (<50%) stenosis right extracranial internal carotid. Mild (<50%) stenosis left extracranial internal carotid. Patent and antegrade vertebrals bilaterally. Ordering Physician: Marga Butcher Referring Physician: Linda Mao Performed By: Gianna Londono, BAHMAN, RVT Physical Exam Const alert, oriented x3 and no apparent distress General Appearance: cooperative HEENT hearing grossly normal bilaterally Head and Scalp: atraumatic Eyes EOMs intact bilaterally Neck General: normal visual inspection Chest inspection of chest normal and palpation of chest normal Resp normal respiratory effort Auscultation: clear to auscultation bilaterally Cardio regular rate, regular rhythm, S1 normal heart sound and S2 normal heart sound Jugular Venous Distention: JVD GI normal to inspection, nondistended, normoactive bowel sounds Extremity normal capillary refill and no pedal edema Peripheral Pulses: Yes pulses 2+ throughout and femoral pulses present Skin no rashes or lesions noted Neuro oriented x3 and CN's II-XII intact bilaterally Psych Appearance: grossly normal and appropriate Assessment & Plan Assessment/Plan (1) Complete heart block: PLAN: s/p Pacemaker in place. (2) AF (paroxysmal atrial fibrillation): PLAN: - Patient with history of p. afib s/p cardioversion in the past, has been on metoprolol and amiodarone to maintain sinus rhythm. - Pacemaker interrogation showed increase episodes of atrial flutter/atrial fibrillation. - Pacemaker interrogation also showed under sensing that was adjusted yesterday after which the patient felt better. - This has been adjusted and amiodarone added and she is currently AV sequentially paced. (3) Congestive heart failure (CHF): QUALIFIERS: Heart failure type: systolic Heart failure chronicity: chronic Qualified Code(s): I50.22 - Chronic systolic (congestive) heart failure PLAN: - Patient has chronic cardiomyopathy likely ischemic given history of coronary disease with wall motion normalities noted on 2D echo that was done during this admission with a EF estimated to be 35% and wall motion normalities as listed above in the echo findings. - RV is dilated with preserved function, with findings suggestive of RV volume overload. - Continue metoprolol and uptitrate as tolerated, will hold off on Entresto and afterload reducing agents, monitor blood pressure until tachycardia is controlled and blood pressure is more stable. - Patient appears to be euvolemic no need for diuresis will continue to monitor. This can be followed up as an outpatient. (4) Non-rheumatic mitral regurgitation: PLAN: - Secondary mitral regurgitation with left atrial dilation likely secondary to underlying cardiomyopathy (5) History of coronary artery stent placement: PLAN: - CAD s/p PCI - Appears stable, no chest pain. - tpn mildly elevated. - Will add aspirin to Eliquis 2.5 and will add Lipitor. (6) Hyperlipidemia: QUALIFIERS: Hyperlipidemia type: mixed hyperlipidemia Qualified Code(s): E78.2 - Mixed hyperlipidemia PLAN: - Will start statins. (7) Pacemaker: PLAN: Pacemaker interrogated today and is noted to be functioning well. 12/05/24 0756 <Electronically signed by Elias Arevalo MD> Cosigner Signature (if applicable): CC: ~ Signed [facility] Work Phone: 1(185) [phone] Progress note [facility] Medical Records Department [address] [place] [address] Progress Note - Hospitalist 12/05/24920 MR#: [id number] Acct: [id number] Name: ROBERTO FERGUSON Rep #:[id number] : 1935 89 From: Ajith Quiñones MD PCP: Dr. Linda Mao MD Status :ADM IN Location: [place] [address] Reason for Visit Chief Complaint: Dizziness/lightheadedness with gait unsteadiness and fall at home Subjective Subjective Patient is an 89-year-old lady admitted with dizziness and lightheadedness with fall at home Objective Data Objective Data Vital Signs: Vital Signs Temp Pulse Resp BP Pulse Ox O2 Del Method 97.6 F L 60 17 112/66 97 Room Air 12/05/24 09:00 12/05/24 09:05 12/05/24 09:00 12/05/24 09:00 12/05/24 09:00 12/05/24 09:00 Oxygen Delivery Method Room Air Weight: 50.712 kg Body Mass Index (BMI) 18.6 Intake & Output: Intake and Output for Last 24 Hours 12/03/24 12/04/24 12/05/24 23:59 23:59 23:59 Intake Total 850 / 970 150 / 150 Balance 850 / 970 150 / 150 Lab / Micro Data 12/05/24 04:55 12/05/24 04:55 Labs: Laboratory Results - last 24 hr 12/05/24 04:55: WBC 3.1 L, RBC 3.94 L, Hgb 13.2, Hct 38.2, MCV 97.0, MCH 33.5 H,MCHC 34.6, RDW Std Deviation 50.7 H, RDW Coeff of Sharad 14.3, Plt Count 87 L, MPV 12.1 H, Sodium 134, Potassium 4.0, Chloride 103, Carbon Dioxide 20.5 L, Anion Gap 11, BUN 24 H, Creatinine 1.13, Estim Creat Clear Calc 27.55 L, Est GFR (MDRD) Non-Af 47 L, BUN/Creatinine Ratio 21.1 H, Glucose 81, Calcium 8.3 Micro: Microbiology 12/01/24 10:25 Urine, Clean Catch Urine Culture - Final Presumptive E. coli Mixed Gram Positive Organisms Radiography Diagnostic Testing: Radiology Impression Carotid Duplex 12/03/24 10:45 Interpretation Summary Mild (<50%) stenosis right extracranial internal carotid. Mild (<50%) stenosis left extracranial internal carotid. Patent and antegrade vertebrals bilaterally. Ordering Physician: Marga Butcher Referring Physician: Linda Mao Performed By: Gianna Londono, BAHMAN, RVT Physical Exam Narrative GENERAL: cooperative HEENT: Atraumatic; normocephalic EYES; Anicteric, Normal Conjunctiva NECK; supple, normal thyroid, RESPIRATORY: Diminished to auscultation CARDIOVASCULAR: Regular S1 S2, GI: soft, normoactive bowel sounds, : No Renal angle tenderness; EXTREMITIES: No edema, no clubbing, MUSCULOSKELETAL: Significant deformities involving both hands from RA NEURO: Awake; no lateralizing signs. SKIN: No Rash PSYCH; Flat affect Assessment & Plan Assessment/Plan (1) Dizziness: (2) Fall: PLAN: Plan Patient is an 89-year-old lady admitted with dizziness and lightheadedness with fall at home 1. Giddiness ? Etiology not clear. Patient was thought to be orthostatic rehydrated with IV fluids but symptoms persisted also had her pacemaker checked and was found to befunctioning as programmed. There was then a suspicion of possible DJD involvingthe atlantoaxial cervical spine as a result of her rheumatoidarthritis. An MRIhas subsequently been ordered for further evaluation 2. 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 Status post pacemaker placement 3. Paroxysmal atrial fibrillation ? Rate controlled on systemic anticoagulation with apixaban 4. Chronic heart failure with reduced ejection fraction ? Last echo from 724 demonstrated EF of 35% patient remains on guideline directed medical therapy 5. Hypertension ? Blood pressure controlled, home medications continued with dose adjustment as needed 6. Hypothyroidism ? Patient is on levothyroxine home dose continued 7. History of breast cancer s/p mastectomy and chemotherapy ? Follows with oncology, last office visit in October. Currently under observation. No inpatient needs, continue outpatient follow-up. 8. RA ? Patient with history of longstanding RA. Has significant ulnar drift of her fingers consistent with RA and deformities. Continue outpatient injectables after discharge. 9. DVT prophylaxis ? Patient is on apixaban Time spent in the patient's overall evaluation,decision-making process, review of diagnostic data, adjustment of management, discussion with other providers, nursing nursing and ancillary staff involved in patient's care documentation, 36 Minutes Charges/Coding Visit Charges Inpatient E&M: 97664 Subs Hosp L2 12/05/24 0929 Cosigner Signature (if applicable): CC: ~ Signed [facility]08-05-2025 Progress note [place] [facility] Medical Records Department [address] [place] [address] Progress Note - Cardiology 12/05/24 0753 MR#: [id number] Acct: [id number] Name: ROBERTO FERGUSON Rep #:[id number] : 1935 89 From: Elias Arevalo MD PCP: Dr. Linda Mao MD Status :ADM IN Location: [place] [address] Subjective Subjective Patient seen and evaluated Objective Data Vital Signs: Vital Signs Temp Pulse Resp BP Pulse Ox O2 Del Method 97.0 F L 60 18 108/66 100 Room Air 12/05/24 03:42 12/05/24 03:42 12/05/24 03:42 12/05/24 03:42 12/05/24 03:42 12/05/24 03:42 Oxygen Delivery Method Room Air Weight: 111 lb 12.8 oz Body Mass Index (BMI) 18.6 Intake & Output: Intake and Output for Last 24 Hours 12/03/24 12/04/24 12/05/24 23:59 23:59 23:59 Intake Total 850 / 970 150 / 150 Balance 850 / 970 150 / 150 Lab / Micro Data 12/05/24 04:55 12/05/24 04:55 Labs: Laboratory Results - last 24 hr 12/05/24 04:55: WBC 3.1 L, RBC 3.94 L, Hgb 13.2, Hct 38.2, MCV 97.0, MCH 33.5 H,MCHC 34.6, RDW Std Deviation 50.7 H, RDW Coeff of Sharad 14.3, Plt Count 87 L, MPV 12.1 H, Sodium 134, Potassium 4.0, Chloride 103, Carbon Dioxide 20.5 L, Anion Gap 11, BUN 24 H, Creatinine 1.13, Estim Creat Clear Calc 27.55 L, Est GFR (MDRD) Non-Af 47 L, BUN/Creatinine Ratio 21.1 H, Glucose 81, Calcium 8.3 Cardiology Labs/Tests 12/05/24 04:55: WBC 3.1 L, RBC 3.94 L, Hgb 13.2, Hct 38.2, MCV 97.0, MCH 33.5 H,MCHC 34.6, Plt Count 87 L, MPV 12.1 H, Sodium 134, Potassium 4.0, Chloride 103, Carbon Dioxide 20.5 L, Anion Gap 11, BUN 24 H, Creatinine 1.13, Est GFR (MDRD) Non-Af 47 L, BUN/Creatinine Ratio 21.1 H, Glucose 81, Calcium 8.3 Rhythm: EKG: ECHO: Stress Test: Cardiac Cath: PCI: CT Surgery: Holter monitor: EPS: PPM: CXR: Chest CT Scan: Radiography Diagnostic Testing: Radiology Impression Carotid Duplex 12/03/24 10:45 Interpretation Summary Mild (<50%) stenosis right extracranial internal carotid. Mild (<50%) stenosis left extracranial internal carotid. Patent and antegrade vertebrals bilaterally. Ordering Physician: Marga Butcher Referring Physician: Linda Mao Performed By: Gianna Londono, BAHMAN, RVT Physical Exam Const alert, oriented x3 and no apparent distress General Appearance: cooperative HEENT hearing grossly normal bilaterally Head and Scalp: atraumatic Eyes EOMs intact bilaterally Neck General: normal visual inspection Chest inspection of chest normal and palpation of chest normal Resp normal respiratory effort Auscultation: clear to auscultation bilaterally Cardio regular rate, regular rhythm, S1 normal heart sound and S2 normal heart sound Jugular Venous Distention: JVD GI normal to inspection, nondistended, normoactive bowel sounds Extremity normal capillary refill and no pedal edema Peripheral Pulses: Yes pulses 2+ throughout and femoral pulses present Skin no rashes or lesions noted Neuro oriented x3 and CN's II-XII intact bilaterally Psych Appearance: grossly normal and appropriate Assessment & Plan Assessment/Plan (1) Complete heart block: PLAN: s/p Pacemaker in place. (2) AF (paroxysmal atrial fibrillation): PLAN: - Patient with history of p. afib s/p cardioversion in the past, has been on metoprolol and amiodarone to maintain sinus rhythm. - Pacemaker interrogation showed increase episodes of atrial flutter/atrial fibrillation. - Pacemaker interrogation also showed under sensing that was adjusted yesterday after which the patient felt better. - This has been adjusted and amiodarone added and she is currently AV sequentially paced. (3) Congestive heart failure (CHF): QUALIFIERS: Heart failure type: systolic Heart failure chronicity: chronic Qualified Code(s): I50.22 - Chronic systolic (congestive) heart failure PLAN: - Patient has chronic cardiomyopathy likely ischemic given history of coronary disease with wall motion normalities noted on 2D echo that was done during this admission with a EF estimated to be 35% and wall motion normalities as listed above in the echo findings. - RV is dilated with preserved function, with findings suggestive of RV volume overload. - Continue metoprolol and uptitrate as tolerated, will hold off on Entresto and afterload reducing agents, monitor blood pressure until tachycardia is controlled and blood pressure is more stable. - Patient appears to be euvolemic no need for diuresis will continue to monitor. This can be followed up as an outpatient. (4) Non-rheumatic mitral regurgitation: PLAN: - Secondary mitral regurgitation with left atrial dilation likely secondary to underlying cardiomyopathy (5) History of coronary artery stent placement: PLAN: - CAD s/p PCI - Appears stable, no chest pain. - tpn mildly elevated. - Will add aspirin to Eliquis 2.5 and will add Lipitor. (6) Hyperlipidemia: QUALIFIERS: Hyperlipidemia type: mixed hyperlipidemia Qualified Code(s): E78.2 - Mixed hyperlipidemia PLAN: - Will start statins. (7) Pacemaker: PLAN: Pacemaker interrogated today and is noted to be functioning well. 12/05/24 0756 Cosigner Signature (if applicable): CC: ~ Signed [facility]08-04-2025 Progress note Author Sean Thornton [facility] Note Date/Time December 04, 2024 3:3 6pm [facility] Medical Records Department [address] [place] [address] Progress Note - Hospitalist 12/04/24 1508 MR#: [id number] Acct: [id number] Name: ROBERTO FERGUSON Rep #:[id number] : 1935 89 From: Sean ramírez DO PCP: Dr. Linda Mao MD Status :ADM IN Location: [place] [address]- Reason for Visit Chief Complaint: Dizziness/lightheadedness with gait unsteadiness and fall at home Subjective Subjective Saw patient at bedside this morning. Patient was sitting back fairly comfortably in bed and in no acute distress. She continues to report presyncopal type symptoms and numbness/tingling in her extremities especially with certain movements of her head. Notably orthostatic vitals were normal thismorning. Pacemaker was interrogated today and per Dr. Arevalo, it is functioning well with no issues. Carotid ultrasound was obtained this morning, read pending. Patient states that she is concerned her symptoms may be secondary to cervical spine issues in the setting of her known significant history of rheumatoid arthritis. No other new concerns today. Objective Data Objective Data Vital Signs: Vital Signs Temp Pulse Resp BP Pulse Ox O2 Del Method 97.9 F 61 16 121/74 H 96 Room Air 12/04/24 07:55 12/04/24 08:20 12/04/24 07:55 12/04/24 08:01 12/04/24 07:55 12/04/24 07:55 Oxygen Delivery Method Room Air Weight: 50.712 kg Body Mass Index (BMI) 18.6 Intake & Output: Intake and Output for Last 24 Hours 12/02/24 12/03/24 12/04/24 23:59 23:59 23:59 Intake Total 1150 / 1500 850 / 970 150 / 150 Balance 1150 / 1500 850 / 970 150 / 150 Lab / Micro Data 12/04/24 05:25 12/04/24 05:25 Labs: Laboratory Results - last 24 hr 12/04/24 05:25: WBC 3.2 L, RBC 4.09 L, Hgb 13.6, Hct 39.5, MCV 96.6, MCH 33.3 H,MCHC 34.4, RDW Std Deviation 50.8 H, RDW Coeff of Sharad 14.4, Plt Count 91 L, MPV 11.9, Immature Gran % (Auto) 0.300, Neut % (Auto) 44.3 L, Lymph % (Auto) 35.9, [place] % (Auto) 16.1 H, Eos % (Auto) 2.8, Baso % (Auto) 0.6, Absolute Neuts (auto) 1.4 L, Absolute Lymphs (auto) 1.16, Nucleated RBC % 0, Sodium 133, Potassium 4.2, Chloride 102, Carbon Dioxide 19.7 L, Anion Gap 12, BUN 23 H, Creatinine 1.14, Estim Creat Clear Calc 27.31 L, Est GFR (MDRD) Non-Af 46 L, BUN/CreatinineRatio 19.9, Glucose 88, Calcium 8.3 Micro: Microbiology 12/01/24 10:25 Urine, Clean Catch Urine Culture - Final Presumptive E. coli Mixed Gram Positive Organisms Physical Exam Const alert, oriented x3 and no apparent distress Constitutional Narrative: Elderly female, thin appearing, mildly anxious and fatigued appearing but otherwise sitting back comfortably in bed, conversing normally, in no acute distress. General Appearance: cooperative and comfortable HEENT normocephalic, head/scalp atraumatic, hearing grossly normal bilaterally, nasal mucous membranes and turbinates normal and moist oral mucous membranes Eyes PERRL, EOMs intact bilaterally and conjunctivae normal Neck full ROM Chest inspection of chest normal Resp normal respiratory effort, normal air movement, no use of accessory muscles and clear to auscultation bilaterally Cardio regular rate, regular rhythm, no murmurs and peripheral pulses 2+ throughout GI normal to inspection, nondistended, normoactive bowel sounds, soft to palpation,non-tender and non-distended Back/Spine normal ROM Extremity normal to inspection, full ROM and no pedal edema Skin no rashes or lesions noted Neuro moves all extremities and no focal motor deficits Speech: speech normal Motor Exam: strength 5/5 throughout Psych mental status grossly normal Mood & Affect: anxious Assessment & Plan Assessment/Plan (1) Dizziness: (2) Fall: PLAN: Plan Patient is an 89-year-old female who presented to [facility] ED on 11/30/2024 with dizziness/lightheadedness with gait unsteadiness and fall at home. 1. Dizziness/lightheadedness with gait and thickness and fall at home ? Unclear etiology to this point. Initially seemed most consistent with presyncopal symptoms especially considering blood pressure remained low off homeheart failure medications. Had pacemaker issues as below but with adjustment, had minimal improvement in symptoms. Orthostatic vitals initially mildly positive but with fluid resuscitation are now normal. Carotid duplex ultrasoundcompleted, read pending. With multiple negative findings, highest suspicion currently is for neurologic symptoms secondary to cervical spine instability in setting of longstanding RA. CT cervical spine on admit showed degenerative changes of the atlantoaxial joint at C1-2, along with marked degree of to space narrowing and spondylosis at C6-7. MRI cervical spine ordered. Unfortunately, Dr. Lopez is unavailable this week so if MRI shows concerning findings, may needto consider transfer for further management. 2. History of complete heart block s/p pacemaker placement ? Cardiology following. Patient had pacemaker interrogated on admit and it showed both increased episodes of A-fib/flutter as well as under sensing. Pacemaker was adjusted and with reinterrogation on 12/04, there are no further issues noted. Okay to continue home medications as below 3. Paroxysmal A-fib on Eliquis, chronic HFrEF, hypertension, hyperlipidemia ? Cardiology following as above. Last echo in 11/2023 showed EF 35%, moderate global hypokinesis of the LV, mildly dilated RV, no significant valvular disease. Repeat echo on 12/01 with stable findings from previous. Cardiology noted the patient appears euvolemic so no need for diuresis. Continue home Eliquis, statin, amiodarone and Lopressor. Per cardiology, will hold home Entresto, spironolactone, Lasix and Jardiance for now as blood pressure has remained to low normal during hospitalization. Will plan to hold these on discharge with close outpatient follow-up with cardiology. 4. History of breast cancer s/p mastectomy and chemotherapy ? Follows with oncology, last office visit in October. Currently under observation. No inpatient needs, continue outpatient follow-up. 5. Hypothyroidism ? TSH within normal limits. Continue home Synthroid. 6. RA ? Patient with history of longstanding RA. Has significant ulnar drift of her fingers consistent with RA and deformities. Continue outpatient injectables after discharge. DVT prophylaxis: Not indicated, on Eliquis CODE STATUS: Full code, verified Expected disposition: TBD Total clinical time spent by myself addressing the patient's medical issues, reviewing all the data, and collaborating with patient's care team: 35 minutes. Charges/Coding Visit Charges Inpatient E&M: 56970 Subs Hosp L2 12/04/24 1536 <Electronically signed by Sean Thornton DO> Cosigner Signature (if applicable): CC: ~ Signed [facility] Work Phone: 1(222) 110-789908-04-2025 Progress note Author [facility] Note Date/Time December 04, 2024 3:3 6pm [facility] Medical Records Department [address] [place] [address] Progress Note - Hospitalist 12/04/24 1508 MR#: [id number] Acct: [id number] Name: ROBERTO FERGUSON Rep #:[id number] : 1935 89 From: Sean ramírez DO PCP: Dr. Linda Mao MD Status :ADM IN Location: [place] [address] 1 Reason for Visit Chief Complaint: Dizziness/lightheadedness with gait unsteadiness and fall at home Subjective Subjective Saw patient at bedside this morning. Patient was sitting back fairly comfortably in bed and in no acute distress. She continues to report presyncopal type symptoms and numbness/tingling in her extremities especially with certain movements of her head. Notably orthostatic vitals were normal thismorning. Pacemaker was interrogated today and per Dr. Arevalo, it is functioning well with no issues. Carotid ultrasound was obtained this morning, read pending. Patient states that she is concerned her symptoms may be secondary to cervical spine issues in the setting of her known significant history of rheumatoid arthritis. No other new concerns today. Objective Data Objective Data Vital Signs: Vital Signs Temp Pulse Resp BP Pulse Ox O2 Del Method 97.9 F 61 16 121/74 H 96 Room Air 12/04/24 07:55 12/04/24 08:20 12/04/24 07:55 12/04/24 08:01 12/04/24 07:55 12/04/24 07:55 Oxygen Delivery Method Room Air Weight: 50.712 kg Body Mass Index (BMI) 18.6 Intake & Output: Intake and Output for Last 24 Hours 12/02/24 12/03/24 12/04/24 23:59 23:59 23:59 Intake Total 1150 / 1500 850 / 970 150 / 150 Balance 1150 / 1500 850 / 970 150 / 150 Lab / Micro Data 12/04/24 05:25 12/04/24 05:25 Labs: Laboratory Results - last 24 hr 12/04/24 05:25: WBC 3.2 L, RBC 4.09 L, Hgb 13.6, Hct 39.5, MCV 96.6, MCH 33.3 H,MCHC 34.4, RDW Std Deviation 50.8 H, RDW Coeff of Sharad 14.4, Plt Count 91 L, MPV 11.9, Immature Gran % (Auto) 0.300, Neut % (Auto) 44.3 L, Lymph % (Auto) 35.9, [place] % (Auto) 16.1 H, Eos % (Auto) 2.8, Baso % (Auto) 0.6, Absolute Neuts (auto) 1.4 L, Absolute Lymphs (auto) 1.16, Nucleated RBC % 0, Sodium 133, Potassium 4.2, Chloride 102, Carbon Dioxide 19.7 L, Anion Gap 12, BUN 23 H, Creatinine 1.14, Estim Creat Clear Calc 27.31 L, Est GFR (MDRD) Non-Af 46 L, BUN/CreatinineRatio 19.9, Glucose 88, Calcium 8.3 Micro: Microbiology 12/01/24 10:25 Urine, Clean Catch Urine Culture - Final Presumptive E. coli Mixed Gram Positive Organisms Physical Exam Const alert, oriented x3 and no apparent distress Constitutional Narrative: Elderly female, thin appearing, mildly anxious and fatigued appearing but otherwise sitting back comfortably in bed, conversing normally, in no acute distress. General Appearance: cooperative and comfortable HEENT normocephalic, head/scalp atraumatic, hearing grossly normal bilaterally, nasal mucous membranes and turbinates normal and moist oral mucous membranes Eyes PERRL, EOMs intact bilaterally and conjunctivae normal Neck full ROM Chest inspection of chest normal Resp normal respiratory effort, normal air movement, no use of accessory muscles and clear to auscultation bilaterally Cardio regular rate, regular rhythm, no murmurs and peripheral pulses 2+ throughout GI normal to inspection, nondistended, normoactive bowel sounds, soft to palpation,non-tender and non-distended Back/Spine normal ROM Extremity normal to inspection, full ROM and no pedal edema Skin no rashes or lesions noted Neuro moves all extremities and no focal motor deficits Speech: speech normal Motor Exam: strength 5/5 throughout Psych mental status grossly normal Mood & Affect: anxious Assessment & Plan Assessment/Plan (1) Dizziness: (2) Fall: PLAN: Plan Patient is an 89-year-old female who presented to [facility] ED on 11/30/2024 with dizziness/lightheadedness with gait unsteadiness and fall at home. 1. Dizziness/lightheadedness with gait and thickness and fall at home ? Unclear etiology to this point. Initially seemed most consistent with presyncopal symptoms especially considering blood pressure remained low off homeheart failure medications. Had pacemaker issues as below but with adjustment, had minimal improvement in symptoms. Orthostatic vitals initially mildly positive but with fluid resuscitation are now normal. Carotid duplex ultrasoundcompleted, read pending. With multiple negative findings, highest suspicion currently is for neurologic symptoms secondary to cervical spine instability in setting of longstanding RA. CT cervical spine on admit showed degenerative changes of the atlantoaxial joint at C1-2, along with marked degree of to space narrowing and spondylosis at C6-7. MRI cervical spine ordered. Unfortunately, Dr. Lopez is unavailable this week so if MRI shows concerning findings, may needto consider transfer for further management. 2. History of complete heart block s/p pacemaker placement ? Cardiology following. Patient had pacemaker interrogated on admit and it showed both increased episodes of A-fib/flutter as well as under sensing. Pacemaker was adjusted and with reinterrogation on 12/04, there are no further issues noted. Okay to continue home medications as below 3. Paroxysmal A-fib on Eliquis, chronic HFrEF, hypertension, hyperlipidemia ? Cardiology following as above. Last echo in 11/2023 showed EF 35%, moderate global hypokinesis of the LV, mildly dilated RV, no significant valvular disease. Repeat echo on 12/01 with stable findings from previous. Cardiology noted the patient appears euvolemic so no need for diuresis. Continue home Eliquis, statin, amiodarone and Lopressor. Per cardiology, will hold home Entresto, spironolactone, Lasix and Jardiance for now as blood pressure has remained to low normal during hospitalization. Will plan to hold these on discharge with close outpatient follow-up with cardiology. 4. History of breast cancer s/p mastectomy and chemotherapy ? Follows with oncology, last office visit in October. Currently under observation. No inpatient needs, continue outpatient follow-up. 5. Hypothyroidism ? TSH within normal limits. Continue home Synthroid. 6. RA ? Patient with history of longstanding RA. Has significant ulnar drift of her fingers consistent with RA and deformities. Continue outpatient injectables after discharge. DVT prophylaxis: Not indicated, on Eliquis CODE STATUS: Full code, verified Expected disposition: TBD Total clinical time spent by myself addressing the patient's medical issues, reviewing all the data, and collaborating with patient's care team: 35 minutes. Charges/Coding Visit Charges Inpatient E&M: 39560 Subs Hosp L2 12/04/24 1536 <Electronically signed by Sean Thornton DO> Cosigner Signature (if applicable): CC: ~ Signed [facility] Work Phone: 1(438) 429-457508-04-2025 Procedure [facility] [address] [place] [address] Pacemaker Check Date of Service: 12/04/24 1645 MR#: [id number] Acct: [id number] Name: KIKA FERGUSONNA WENDY Rep #: [id number] : 1935 From: Iza krishnan Age/Sex: 89/F Location: [facility] Status: Signed Billing Codes PM Device Codes: 98339 PM Dev Prog Eval, Dual Assessment and Plan Assessment and Plan (1) Pacemaker: Status: Acute (2) Nonischemic cardiomyopathy: Status: Acute (3) Complete heart block: Status: Acute (4) Presence of permanent cardiac pacemaker: Status: Chronic (5) Atrial fibrillation: Status: Acute 12/04/24 1647 > Date _ Iza Steward Signature: Date (if applicable) CC: ~ [facility]08-04-2025 Progress note [facility] Medical Records Department [address] [place] [id number] Progress Note - Hospitalist 12/04/24 1508 MR#: [id number] Acct: [id number] Name: ROBERTO FERGUSON Rep #:[id number] : 1935 89 From: Sean ramírez DO PCP: Dr. Linda Mao MD Status :ADM IN Location: [place] [address] Reason for Visit Chief Complaint: Dizziness/lightheadedness with gait unsteadiness and fall at home Subjective Subjective Saw patient at bedside this morning. Patient was sitting back fairly comfortably in bed and in no acute distress. She continues to report presyncopal type symptoms and numbness/tingling in her extremities especially with certain movements of her head. Notably orthostatic vitals were normal thismorning. Pacemaker was interrogated today and per Dr. Arevalo, it is functioning well with no issues. Carotid ultrasound was obtained this morning, read pending. Patient states that she is concerned her symptoms may be secondary to cervical spine issues in the setting of her known significant history of rheumatoid arthritis. No other new concerns today. Objective Data Objective Data Vital Signs: Vital Signs Temp Pulse Resp BP Pulse Ox O2 Del Method 97.9 F 61 16 121/74 H 96 Room Air 12/04/24 07:55 12/04/24 08:20 12/04/24 07:55 12/04/24 08:01 12/04/24 07:55 12/04/24 07:55 Oxygen Delivery Method Room Air Weight: 50.712 kg Body Mass Index (BMI) 18.6 Intake & Output: Intake and Output for Last 24 Hours 12/02/24 12/03/24 12/04/24 23:59 23:59 23:59 Intake Total 1150 / 1500 850 / 970 150 / 150 Balance 1150 / 1500 850 / 970 150 / 150 Lab / Micro Data 12/04/24 05:25 12/04/24 05:25 Labs: Laboratory Results - last 24 hr 12/04/24 05:25: WBC 3.2 L, RBC 4.09 L, Hgb 13.6, Hct 39.5, MCV 96.6, MCH 33.3 H,MCHC 34.4, RDW Std Deviation 50.8 H, RDW Coeff of Sharad 14.4, Plt Count 91 L, MPV 11.9, Immature Gran % (Auto) 0.300, Neut % (Auto) 44.3 L, Lymph % (Auto) 35.9, [place] % (Auto) 16.1 H, Eos % (Auto) 2.8, Baso % (Auto) 0.6, Absolute Neuts (auto) 1.4 L, Absolute Lymphs (auto) 1.16, Nucleated RBC % 0, Sodium 133, Potassium 4.2, Chloride 102, Carbon Dioxide 19.7 L, Anion Gap 12, BUN 23 H, Creatinine 1.14, Estim Creat Clear Calc 27.31 L, Est GFR (MDRD) Non-Af 46 L, BUN/CreatinineRatio 19.9, Glucose 88, Calcium 8.3 Micro: Microbiology 12/01/24 10:25 Urine, Clean Catch Urine Culture - Final Presumptive E. coli Mixed Gram Positive Organisms Physical Exam Const alert, oriented x3 and no apparent distress Constitutional Narrative: Elderly female, thin appearing, mildly anxious and fatigued appearing but otherwise sitting back comfortably in bed, conversing normally, in no acute distress. General Appearance: cooperative and comfortable HEENT normocephalic, head/scalp atraumatic, hearing grossly normal bilaterally, nasal mucous membranes and turbinates normal and moist oral mucous membranes Eyes PERRL, EOMs intact bilaterally and conjunctivae normal Neck full ROM Chest inspection of chest normal Resp normal respiratory effort, normal air movement, no use of accessory muscles and clear to auscultation bilaterally Cardio regular rate, regular rhythm, no murmurs and peripheral pulses 2+ throughout GI normal to inspection, nondistended, normoactive bowel sounds, soft to palpation,non-tender and non-distended Back/Spine normal ROM Extremity normal to inspection, full ROM and no pedal edema Skin no rashes or lesions noted Neuro moves all extremities and no focal motor deficits Speech: speech normal Motor Exam: strength 5/5 throughout Psych mental status grossly normal Mood & Affect: anxious Assessment & Plan Assessment/Plan (1) Dizziness: (2) Fall: PLAN: Plan Patient is an 89-year-old female who presented to [facility] ED on 11/30/2024 with dizziness/lightheadedness with gait unsteadiness and fall at home. 1. Dizziness/lightheadedness with gait and thickness and fall at home ? Unclear etiology to this point. Initially seemed most consistent with presyncopal symptoms especially considering blood pressure remained low off homeheart failure medications. Had pacemaker issuesas below but with adjustment, had minimal improvement in symptoms. Orthostatic vitals initially mildly positive but with fluid resuscitation are now normal. Carotid duplex ultrasoundcompleted, read pending. With multiple negative findings, highest suspicion currently is for neurologic symptoms secondary to cervical spine instability in setting of longstanding RA. CT cervical spine on admit showed degenerative changes of the atlantoaxial joint at C1-2, along with marked degree of to space narrowing and spondylosis at C6-7. MRI cervical spine ordered. Unfortunately, Dr. Lopez is unavailable this week so if MRI shows concerning findings, may needto consider transfer for further management. 2. History of complete heart block s/p pacemaker placement ? Cardiology following. Patient had pacemaker interrogated on admit and it showed both increased episodes of A-fib/flutter as well as under sensing. Pacemaker was adjusted and with reinterrogation on12/04, there are no further issues noted. Okay to continue home medications as below 3. Paroxysmal A-fib on Eliquis, chronic HFrEF, hypertension, hyperlipidemia ? Cardiology following as above. Last echo in 11/2023 showed EF 35%, moderate global hypokinesis of the LV, mildly dilated RV, no significant valvular disease. Repeat echo on 12/01 with stable findings from previous. Cardiology noted the patient appears euvolemic so no need for diuresis. Continue homeEliquis, statin, amiodarone and Lopressor. Per cardiology, will hold home Entresto, spironolactone,Lasix and Jardiance for now as blood pressure has remained to low normal during hospitalization. Will plan to hold these on discharge with close outpatient follow-up with cardiology. 4. History of breast cancer s/p mastectomy and chemotherapy ? Follows with oncology, last office visit in October. Currently under observation. No inpatient needs, continue outpatient follow-up. 5. Hypothyroidism ? TSH within normal limits. Continue home Synthroid. 6. RA ? Patient with history of longstanding RA. Has significant ulnar drift of her fingers consistent with RA and deformities. Continue outpatient injectables after discharge. DVT prophylaxis: Not indicated, on Eliquis CODE STATUS: Full code, verified Expected disposition: TBD Total clinical time spent by myself addressing the patient's medical issues, reviewing all the data, and collaborating with patient's care team: 35 minutes. Charges/Coding Visit Charges Inpatient E&M: 62123 Subs Hosp L2 12/04/24 1536 Cosigner Signature (if applicable): CC: ~ Signed [facility]08-04-2025 Progress note Author Elias Arevalo [facility] Note Date/Time December 04, 2024 11: 08am [facility] Medical Records Department [address] [place] [id number] Progress Note - Cardiology 12/04/24 1058 MR#: [id number] Acct: [id number] Name: ROBERTO FERGUSON Rep #:[id number] : 1935 89 From: Elias Arevalo MD PCP: Dr. Linda Mao MD Status :ADM IN Location: [place] [address] Subjective Subjective Patient seen and evaluated. Objective Data Vital Signs: Vital Signs Temp Pulse Resp BP Pulse Ox O2 Del Method 97.9 F 61 16 121/74 H 96 Room Air 12/04/24 07:55 12/04/24 08:20 12/04/24 07:55 12/04/24 08:01 12/04/24 07:55 12/04/24 07:55 Oxygen Delivery Method Room Air Weight: 111 lb 12.8 oz Body Mass Index (BMI) 18.6 Intake & Output: Intake and Output for Last 24 Hours 12/02/24 12/03/24 12/04/24 23:59 23:59 23:59 Intake Total 1150 / 1500 850 / 970 150 / 150 Balance 1150 / 1500 850 / 970 150 / 150 Lab / Micro Data 12/04/24 05:25 12/04/24 05:25 Labs: Laboratory Results - last 24 hr 12/04/24 05:25: WBC 3.2 L, RBC 4.09 L, Hgb 13.6, Hct 39.5, MCV 96.6, MCH 33.3 H,MCHC 34.4, RDW Std Deviation 50.8 H, RDW Coeff of Sharad 14.4, Plt Count 91 L, MPV 11.9, Immature Gran % (Auto) 0.300, Neut % (Auto) 44.3 L, Lymph % (Auto) 35.9, [place] % (Auto) 16.1 H, Eos % (Auto) 2.8, Baso % (Auto) 0.6, Absolute Neuts (auto) 1.4 L, Absolute Lymphs (auto) 1.16, Nucleated RBC % 0, Sodium 133, Potassium 4.2, Chloride 102, Carbon Dioxide 19.7 L, Anion Gap 12, BUN 23 H, Creatinine 1.14, Estim Creat Clear Calc 27.31 L, Est GFR (MDRD) Non-Af 46 L, BUN/CreatinineRatio 19.9, Glucose 88, Calcium 8.3 Micro: Microbiology 12/01/24 10:25 Urine, Clean Catch Urine Culture - Final Presumptive E. coli Mixed Gram Positive Organisms Cardiology Labs/Tests 12/04/24 05:25: WBC 3.2 L, RBC 4.09 L, Hgb 13.6, Hct 39.5, MCV 96.6, MCH 33.3 H,MCHC 34.4, Plt Count 91 L, MPV 11.9, Immature Gran % (Auto) 0.300, Neut % (Auto)44.3 L, Lymph % (Auto) 35.9, [place] % (Auto) 16.1 H, Eos % (Auto) 2.8, Baso % (Auto) 0.6, Absolute Neuts (auto) 1.4 L, Nucleated RBC % 0, Sodium 133, Potassium 4.2, Chloride 102, Carbon Dioxide 19.7 L, Anion Gap 12, BUN 23 H, Creatinine 1.14, Est GFR (MDRD) Non-Af 46 L, BUN/Creatinine Ratio 19.9, Glucose 88, Calcium 8.3 Rhythm: EKG: ECHO: Stress Test: Cardiac Cath: PCI: CT Surgery: Holter monitor: EPS: PPM: CXR: Chest CT Scan: Physical Exam Const alert, oriented x3 and no apparent distress General Appearance: cooperative HEENT hearing grossly normal bilaterally Head and Scalp: atraumatic Eyes EOMs intact bilaterally Neck General: normal visual inspection Chest inspection of chest normal and palpation of chest normal Resp normal respiratory effort Auscultation: clear to auscultation bilaterally Cardio regular rate, regular rhythm, S1 normal heart sound and S2 normal heart sound Jugular Venous Distention: JVD GI normal to inspection, nondistended, normoactive bowel sounds Extremity normal capillary refill and no pedal edema Peripheral Pulses: Yes pulses 2+ throughout and femoral pulses present Skin no rashes or lesions noted Neuro oriented x3 and CN's II-XII intact bilaterally Psych Appearance: grossly normal and appropriate Assessment & Plan Assessment/Plan (1) Complete heart block: PLAN: s/p Pacemaker in place. (2) AF (paroxysmal atrial fibrillation): PLAN: - Patient with history of p. afib s/p cardioversion in the past, has been on metoprolol and amiodarone to maintain sinus rhythm. - Pacemaker interrogation showed increase episodes of atrial flutter/atrial fibrillation. - Pacemaker interrogation also showed under sensing that was adjusted yesterday after which the patient felt better. - This has been adjusted and amiodarone added and she is currently AV sequentially paced. (3) Congestive heart failure (CHF): QUALIFIERS: Heart failure type: systolic Heart failure chronicity: chronic Qualified Code(s): I50.22 - Chronic systolic (congestive) heart failure PLAN: - Patient has chronic cardiomyopathy likely ischemic given history of coronary disease with wall motion normalities noted on 2D echo that was done during this admission with a EF estimated to be 35% and wall motion normalities as listed above in the echo findings. - RV is dilated with preserved function, with findings suggestive of RV volume overload. - Continue metoprolol and uptitrate as tolerated, will hold off on Entresto and afterload reducing agents, monitor blood pressure until tachycardia is controlled and blood pressure is more stable. - Patient appears to be euvolemic no need for diuresis will continue to monitor. This can be followed up as an outpatient. (4) Non-rheumatic mitral regurgitation: PLAN: - Secondary mitral regurgitation with left atrial dilation likely secondary to underlying cardiomyopathy (5) History of coronary artery stent placement: PLAN: - CAD s/p PCI - Appears stable, no chest pain. - tpn mildly elevated. - Will add aspirin to Eliquis 2.5 and will add Lipitor. (6) Hyperlipidemia: QUALIFIERS: Hyperlipidemia type: mixed hyperlipidemia Qualified Code(s): E78.2 - Mixed hyperlipidemia PLAN: - Will start statins. (7) Pacemaker: PLAN: Pacemaker interrogated today and is noted to be functioning well. 12/04/24 1108 <Electronically signed by Elias Arevalo MD> Cosigner Signature (if applicable): CC: ~ Signed [facility] Work Phone: [phone]) 917-502708-04-2025 Progress note Author Elias Arevalo [facility] Note Date/Time December 04, 2024 11: 08am [facility] Medical Records Department [address] [place] [address] Progress Note - Cardiology 12/04/24 1058 MR#: [id number] Acct: [id number] Name: ROBERTO FERGUSON Rep #:[id number] : 1935 89 From: Elias Arevalo MD PCP: Dr. Linda Mao MD Status :ADM IN Location: [place] [address] Subjective Subjective Patient seen and evaluated. Objective Data Vital Signs: Vital Signs Temp Pulse Resp BP Pulse Ox O2 Del Method 97.9 F 61 16 121/74 H 96 Room Air 12/04/24 07:55 12/04/24 08:20 12/04/24 07:55 12/04/24 08:01 12/04/24 07:55 12/04/24 07:55 Oxygen Delivery Method Room Air Weight: 111 lb 12.8 oz Body Mass Index (BMI) 18.6 Intake & Output: Intake and Output for Last 24 Hours 12/02/24 12/03/24 12/04/24 23:59 23:59 23:59 Intake Total 1150 / 1500 850 / 970 150 / 150 Balance 1150 / 1500 850 / 970 150 / 150 Lab / Micro Data 12/04/24 05:25 12/04/24 05:25 Labs: Laboratory Results - last 24 hr 12/04/24 05:25: WBC 3.2 L, RBC 4.09 L, Hgb 13.6, Hct 39.5, MCV 96.6, MCH 33.3 H,MCHC 34.4, RDW Std Deviation 50.8 H, RDW Coeff of Sharad 14.4, Plt Count 91 L, MPV 11.9, Immature Gran % (Auto) 0.300, Neut % (Auto) 44.3 L, Lymph % (Auto) 35.9, [place] % (Auto) 16.1 H, Eos % (Auto) 2.8, Baso % (Auto) 0.6, Absolute Neuts (auto) 1.4 L, Absolute Lymphs (auto) 1.16, Nucleated RBC % 0, Sodium 133, Potassium 4.2, Chloride 102, Carbon Dioxide 19.7 L, Anion Gap 12, BUN 23 H, Creatinine 1.14, Estim Creat Clear Calc 27.31 L, Est GFR (MDRD) Non-Af 46 L, BUN/CreatinineRatio 19.9, Glucose 88, Calcium 8.3 Micro: Microbiology 12/01/24 10:25 Urine, Clean Catch Urine Culture - Final Presumptive E. coli Mixed Gram Positive Organisms Cardiology Labs/Tests 12/04/24 05:25: WBC 3.2 L, RBC 4.09 L, Hgb 13.6, Hct 39.5, MCV 96.6, MCH 33.3 H,MCHC 34.4, Plt Count 91 L, MPV 11.9, Immature Gran % (Auto) 0.300, Neut % (Auto)44.3 L, Lymph % (Auto) 35.9, [place] % (Auto) 16.1 H, Eos % (Auto) 2.8, Baso % (Auto) 0.6, Absolute Neuts (auto) 1.4 L, Nucleated RBC % 0, Sodium 133, Potassium 4.2, Chloride 102, Carbon Dioxide 19.7 L, Anion Gap 12, BUN 23 H, Creatinine 1.14, Est GFR (MDRD) Non-Af 46 L, BUN/Creatinine Ratio 19.9, Glucose 88, Calcium 8.3 Rhythm: EKG: ECHO: Stress Test: Cardiac Cath: PCI: CT Surgery: Holter monitor: EPS: PPM: CXR: Chest CT Scan: Physical Exam Const alert, oriented x3 and no apparent distress General Appearance: cooperative HEENT hearing grossly normal bilaterally Head and Scalp: atraumatic Eyes EOMs intact bilaterally Neck General: normal visual inspection Chest inspection of chest normal and palpation of chest normal Resp normal respiratory effort Auscultation: clear to auscultation bilaterally Cardio regular rate, regular rhythm, S1 normal heart sound and S2 normal heart sound Jugular Venous Distention: JVD GI normal to inspection, nondistended, normoactive bowel sounds Extremity normal capillary refill and no pedal edema Peripheral Pulses: Yes pulses 2+ throughout and femoral pulses present Skin no rashes or lesions noted Neuro oriented x3 and CN's II-XII intact bilaterally Psych Appearance: grossly normal and appropriate Assessment & Plan Assessment/Plan (1) Complete heart block: PLAN: s/p Pacemaker in place. (2) AF (paroxysmal atrial fibrillation): PLAN: - Patient with history of p. afib s/p cardioversion in the past, has been on metoprolol and amiodarone to maintain sinus rhythm. - Pacemaker interrogation showed increase episodes of atrial flutter/atrial fibrillation. - Pacemaker interrogation also showed under sensing that was adjusted yesterday after which the patient felt better. - This has been adjusted and amiodarone added and she is currently AV sequentially paced. (3) Congestive heart failure (CHF): QUALIFIERS: Heart failure type: systolic Heart failure chronicity: chronic Qualified Code(s): I50.22 - Chronic systolic (congestive) heart failure PLAN: - Patient has chronic cardiomyopathy likely ischemic given history of coronary disease with wall motion normalities noted on 2D echo that was done during this admission with a EF estimated to be 35% and wall motion normalities as listed above in the echo findings. - RV is dilated with preserved function, with findings suggestive of RV volume overload. - Continue metoprolol and uptitrate as tolerated, will hold off on Entresto and afterload reducing agents, monitor blood pressure until tachycardia is controlled and blood pressure is more stable. - Patient appears to be euvolemic no need for diuresis will continue to monitor. This can be followed up as an outpatient. (4) Non-rheumatic mitral regurgitation: PLAN: - Secondary mitral regurgitation with left atrial dilation likely secondary to underlying cardiomyopathy (5) History of coronary artery stent placement: PLAN: - CAD s/p PCI - Appears stable, no chest pain. - tpn mildly elevated. - Will add aspirin to Eliquis 2.5 and will add Lipitor. (6) Hyperlipidemia: QUALIFIERS: Hyperlipidemia type: mixed hyperlipidemia Qualified Code(s): E78.2 - Mixed hyperlipidemia PLAN: - Will start statins. (7) Pacemaker: PLAN: Pacemaker interrogated today and is noted to be functioning well. 12/04/24 1108 <Electronically signed by Elias Arevalo MD> Cosigner Signature (if applicable): CC: ~ Signed [facility] Work Phone: 1(527) 483-430708-04-2025 Progress note [facility] Medical Records Department [address] [place] [address] Progress Note - Cardiology 12/04/24 1058 MR#: [id number] Acct: [id number] Name: ROBERTO FERGUSON Rep #:[id number] : 1935 89 From: Elias Arevalo MD PCP: Dr. Linda Mao MD Status :ADM IN Location: [place] [address] Subjective Subjective Patient seen and evaluated. Objective Data Vital Signs: Vital Signs Temp Pulse Resp BP Pulse Ox O2 Del Method 97.9 F 61 16 121/74 H 96 Room Air 12/04/24 07:55 12/04/24 08:20 12/04/24 07:55 12/04/24 08:01 12/04/24 07:55 12/04/24 07:55 Oxygen Delivery Method Room Air Weight: 111 lb 12.8 oz Body Mass Index (BMI) 18.6 Intake & Output: Intake and Output for Last 24 Hours 12/02/24 12/03/24 12/04/24 23:59 23:59 23:59 Intake Total 1150 / 1500 850 / 970 150 / 150 Balance 1150 / 1500 850 / 970 150 / 150 Lab / Micro Data 12/04/24 05:25 12/04/24 05:25 Labs: Laboratory Results - last 24 hr 12/04/24 05:25: WBC 3.2 L, RBC 4.09 L, Hgb 13.6, Hct 39.5, MCV 96.6, MCH 33.3 H,MCHC 34.4, RDW Std Deviation 50.8 H, RDW Coeff of Sharad 14.4, Plt Count 91 L, MPV 11.9, Immature Gran % (Auto) 0.300, Neut % (Auto) 44.3 L, Lymph % (Auto) 35.9, [place] % (Auto) 16.1 H, Eos % (Auto) 2.8, Baso % (Auto) 0.6, Absolute Neuts (auto) 1.4 L, Absolute Lymphs (auto) 1.16, Nucleated RBC % 0, Sodium 133, Potassium 4.2, Chloride 102, Carbon Dioxide 19.7 L, Anion Gap 12, BUN 23 H, Creatinine 1.14, Estim Creat Clear Calc 27.31 L, Est GFR (MDRD) Non-Af 46 L, BUN/CreatinineRatio 19.9, Glucose 88, Calcium 8.3 Micro: Microbiology 12/01/24 10:25 Urine, Clean Catch Urine Culture - Final Presumptive E. coli Mixed Gram Positive Organisms Cardiology Labs/Tests 12/04/24 05:25: WBC 3.2 L, RBC 4.09 L, Hgb 13.6, Hct 39.5, MCV 96.6, MCH 33.3 H,MCHC 34.4, Plt Count 91 L, MPV 11.9, Immature Gran % (Auto) 0.300, Neut % (Auto)44.3 L, Lymph % (Auto) 35.9, [place] % (Auto) 16.1 H, Eos % (Auto) 2.8, Baso % (Auto) 0.6, Absolute Neuts (auto) 1.4 L, Nucleated RBC % 0, Sodium 133, Potassium 4.2, Chloride 102, Carbon Dioxide 19.7 L, Anion Gap 12, BUN 23 H, Creatinine 1.14, Est GFR (MDRD) Non-Af 46 L, BUN/Creatinine Ratio 19.9, Glucose 88, Calcium 8.3 Rhythm: EKG: ECHO: Stress Test: Cardiac Cath: PCI: CT Surgery: Holter monitor: EPS: PPM: CXR: Chest CT Scan: Physical Exam Const alert, oriented x3 and no apparent distress General Appearance: cooperative HEENT hearing grossly normal bilaterally Head and Scalp: atraumatic Eyes EOMs intact bilaterally Neck General: normal visual inspection Chest inspection of chest normal and palpation of chest normal Resp normal respiratory effort Auscultation: clear to auscultation bilaterally Cardio regular rate, regular rhythm, S1 normal heart sound and S2 normal heart sound Jugular Venous Distention: JVD GI normal to inspection, nondistended, normoactive bowel sounds Extremity normal capillary refill and no pedal edema Peripheral Pulses: Yes pulses 2+ throughout and femoral pulses present Skin no rashes or lesions noted Neuro oriented x3 and CN's II-XII intact bilaterally Psych Appearance: grossly normal and appropriate Assessment & Plan Assessment/Plan (1) Complete heart block: PLAN: s/p Pacemaker in place. (2) AF (paroxysmal atrial fibrillation): PLAN: - Patient with history of p. afib s/p cardioversion in the past, has been on metoprolol and amiodarone to maintain sinus rhythm. - Pacemaker interrogation showed increase episodes of atrial flutter/atrial fibrillation. - Pacemaker interrogation also showed under sensing that was adjusted yesterday after which the patient felt better. - This has been adjusted and amiodarone added and she is currently AV sequentially paced. (3) Congestive heart failure (CHF): QUALIFIERS: Heart failure type: systolic Heart failure chronicity: chronic Qualified Code(s): I50.22 - Chronic systolic (congestive) heart failure PLAN: - Patient has chronic cardiomyopathy likely ischemic given history of coronary disease with wall motion normalities noted on 2D echo that was done during this admission with a EF estimated to be 35% and wall motion normalities as listed above in the echo findings. - RV is dilated with preserved function, with findings suggestive of RV volume overload. - Continue metoprolol and uptitrate as tolerated, will hold off on Entresto and afterload reducing agents, monitor blood pressure until tachycardia is controlled and blood pressure is more stable. - Patient appears to be euvolemic no need for diuresis will continue to monitor. This can be followed up as an outpatient. (4) Non-rheumatic mitral regurgitation: PLAN: - Secondary mitral regurgitation with left atrial dilation likely secondary to underlying cardiomyopathy (5) History of coronary artery stent placement: PLAN: - CAD s/p PCI - Appears stable, no chest pain. - tpn mildly elevated. - Will add aspirin to Eliquis 2.5 and will add Lipitor. (6) Hyperlipidemia: QUALIFIERS: Hyperlipidemia type: mixed hyperlipidemia Qualified Code(s): E78.2 - Mixed hyperlipidemia PLAN: - Will start statins. (7) Pacemaker: PLAN: Pacemaker interrogated today and is noted to be functioning well. 12/04/24 1108 Cosigner Signature (if applicable): CC: ~ Signed [facility]08-04-2025 Consult note Author Elias Arevalo [facility] Note Date/Time December 04, 2024 6:4 7am [facility] Medical Records Department [address] [place] [address] Consultation - Cardiology 12/03/24 1225 MR#: [id number] Acct: [id number] Name: ROBERTO FERGUSON Rep #:[id number] : 1935 89 From: Elias Arevalo MD PCP: Dr. Linda Mao MD Status :ADM IN Location: [place] [address] Documented by User: Dr. Savi Patel MD 12/03/24 15:50 Assessment & Plan Assessment/Plan (1) Dizziness: (2) Fall: (3) Complete heart block: PLAN: s/p Pacemaker in place. (4) AF (paroxysmal atrial fibrillation): PLAN: - Patient with history of p. afib s/p cardioversion in the past, has been on metoprolol and amiodarone to maintain sinus rhythm. - Pacemaker interrogation showed increase episodes of atrial flutter/atrial fibrillation. - Pacemaker interrogation also showed under sensing that was adjusted yesterday after which the patient felt better. - Today the patient has tachycardia with paced rhythm findings suggestive of pacemaker mediated tachycardia, with questionable underlying atrial flutter - Dizziness could be likely secondary to tachycardia, in addition to cardiomyopathy, on top of underlying decreased vascular tone with baseline hypotension and orthostasis appears to be negative. - Will continue metoprolol and uptitrate as tolerated by blood pressure, will give 1 dose of metoprolol 5 mg to cut down on the conduction between the atria and ventricle and reevaluate the heart rate, continue amiodarone 200 mg p.o. daily. - Reevaluate the pacemaker function, if PVARP needs to be adjusted. - Continue Eliquis for anticoagulation however was using 2.5 twice daily given age and increased risk of falling. - Will hold off on Entresto and afterload reducing medication until blood pressure stable, hold on Lasix and any diuretics for now, will add DONAVON hose for better support and checking orthostatic vitals periodically. (5) Congestive heart failure (CHF): QUALIFIERS: Heart failure chronicity: chronic Heart failure type:systolic Qualified Code(s): I50.22 - Chronic systolic (congestive) heart failure PLAN: - Patient has chronic cardiomyopathy likely ischemic given history of coronary disease with wall motion normalities noted on 2D echo that was done during this admission with a EF estimated to be 35% and wall motion normalities as listed above in the echo findings. - RV is dilated with preserved function, with findings suggestive of RV volume overload. - Continue metoprolol and uptitrate as tolerated, will hold off on Entresto and afterload reducing agents, monitor blood pressure until tachycardia is controlled and blood pressure is more stable. - Patient appears to be euvolemic no need for diuresis will continue to monitor. (6) Non-rheumatic mitral regurgitation: PLAN: - Secondary mitral regurgitation with left atrial dilation likely secondary to underlying cardiomyopathy (7) History of coronary artery stent placement: PLAN: - CAD s/p PCI - Appears stable, no chest pain. - tpn mildly elevated. - there are echo changes suggestive of unerlying scarring. - Will consider pharmacological stress test prior to discharge. - Will add aspirin to Eliquis 2.5 and will add Lipitor. (8) Hyperlipidemia: QUALIFIERS: Hyperlipidemia type: mixed hyperlipidemia Qualified Code(s): E78.2 - Mixed hyperlipidemia PLAN: - Will start statins. HPI Consult Data Date of Consult: 12/03/24 HPI Narrative Reason for Consultation: Dizziness HPI Narrative: ROBERTO FERGUSON, is a 89 F who presents with dizziness and a fall She presented to [facility] ED on 11/30/2024 with dizziness/lightheadedness with gait unsteadiness and fall at home. Patient lives at home alone, has fairly good functional status at baseline. Daughter lives nearby. 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 Patient notes that she got up around 5 AM this morning to use the bathroom and felt lightheaded and dizzy leading to a fall onto her elbow. She did reportedly hit her head as well. She was able to crawl over to the sofa and went back to bed for a period of time, but when she got up around 9 AM she continued to have lightheadedness with dizziness when trying to stand and ambulate, so she called her daughter and came in for further evaluation. Patient has history of paroxysmal atrial fibrillation status post cardioversion has been in normal sinus with increased episodes of paroxysmal A-fib/flutter with RVR lately according to pacemaker interrogation, pacemaker interrogation also showed under sensing of the atrial lead after increasing sensing according to the rep done yesterday patient has been feeling better overnight temporarily this morning the patient started to feel dizzy again especially with head movement she is tachycardic with questionable pacemaker mediated tachycardia involved. She denies active chest pain, no shortness of breath at rest still dizzy with sitting or standing, complains of neck pain from arthritis she is very unsteady using a walker to walk. [facility] Medical History (Updated 12/03/24 @ 15:[address] Savi Patel MD) Anxiety Depression Hypothyroidism Non-smoker Atrial fibrillation Congestive heart failure (CHF) Pacemaker Myocardial infarct Shingles Atrial tachycardia Presence of permanent cardiac pacemaker CKD (chronic kidney disease) stage 3, GFR 30-59 ml/min Non-rheumatic mitral regurgitation Mitral valve insufficiency Rheumatoid arthritis STEMI (ST elevation myocardial infarction) Atherosclerosis of coronary artery of [place] heart without angina pectoris History of coronary [...] Medications ?Medication ?Instructions ?Recorded ?Last Taken ?Type acetaminophen 500 mg tablet 1,000 mg PO BID pain 04/1205/16/20 History levothyroxine 75 mcg tablet 100 mcg PO DAILY thyroid 1 06/07/22 05/07/23 History calcium carbonate 1,000 mg PO DAILY@0800 PRN 1 06/08/22 11/29/24 History indigestion dapagliflozin propanediol 10 mg 10 mg PO QAM #90 tabs 02/01/24 11/29/24 Rx tablet (Farxiga) metoprolol tartrate 50 mg tablet 50 mg PO BID #180 tab s 05/01/24 Unknown Rx amiodarone 200 mg tablet 200 mg PO DAILY #90 tabs 11/29/24 Rx spironolactone 25 mg tablet 25 mg PO QAM #90 tabs 06/0311/29/24 Rx furosemide 40 mg tablet 40 mg PO QDAY #30 tabs 07/2611/29/24 Rx apixaban 2.5 mg tablet 2.5 mg PO BID #180 tabs 08/3111/29/24 Rx mirtazapine 30 mg tablet 45 mg PO DAILY 09/12/2411/02 History sacubitril 24 mg-valsartan 26 mg 1 tab PO BID #180 tab s 09/12/24 11/29/24 Rx tablet (Entresto) Allergy/AdvReac Type Severity Reaction Status Date / Time ticagrelor (From Brilinta) AdvReac Severe Severe Verified 11/30/24 10:43 dyspnea on exertion Family History Father Clotting [...] use type: does not use caffeine: Yes Physical Exam Narrative General: Alert, oriented x3, elderly, frail HEENT: Normocephalic, normal vision, normal EOM. Neck: Normal JVD, no carotid Bruit, no thyromegaly , no lymphadenopathy. Chest wall: Pacemaker pocket appears to be stable, normal shape, non tender. Cardiac: Regular tachycardia, no rubs, gallops or murmurs noted. Respiratory: Clear to auscultation bilaterally. Abdomen: Nondistended, nontender, no ascites or masses or organomegaly noted, normal bowel sounds. Extremities: Rheumatoid changes of her right hand , normal pulsations, no edema,normal strength and muscle mass. Neurological: Gross CN examination is normal, Normal power in all extremities. Objective Data Vital Signs: Vital Signs Temp Pulse Resp BP Pulse Ox O2 Del Method 98.6 F 118 H 18 107/70 99 Room Air 12/03/24 08:00 12/03/24 09:54 12/03/24 08:00 12/03/24 08:00 12/03/24 08:00 12/03/24 08:00 Oxygen Delivery Method Room Air Weight: 111 lb 12.8 oz Body Mass Index (BMI) 18.6 Intake & Output: Intake and Output for Last 24 Hours 12/01/24 12/02/24 12/03/24 23:59 23:59 23:59 Intake Total 1455.67 / 1455.67 1150 / 1500 550 / 550 Output Total 300 / 300 Balance 1155.67 / 1155.67 1150 / 1500 550 / 550 Lab / Micro Data 12/04/24 05:25 12/03/24 04:18 Labs: Laboratory Results - last 24 hr 12/02/24 16:50: Troponin T High Sens 42 H 12/02/24 19:00: Troponin T Hi Sens 2 Hr 41 H 12/02/24 21:55: Troponin T Hi Sens 4Hr 48 H 12/03/24 04:18: WBC 3.0 L, RBC 4.07 L, Hgb 13.5, Hct 39.3, MCV 96.6, MCH 33.2 H,MCHC 34.4, RDW Std Deviation 51.2 H, RDW Coeff of Sharad 14.4, Plt Count 98 L, MPV 11.4, Immature Gran % (Auto) 0.300, Neut % (Auto) 47.2, Lymph % (Auto) 33.8, [place] % (Auto) 15.7 H, Eos % (Auto) 2.3, Baso % (Auto) 0.7, Absolute Neuts (auto) 1.4 L, Absolute Lymphs (auto) 1.01, Nucleated RBC % 0, Platelet Estimate MOD DEC, Sodium 137, Potassium 4.0, Chloride 106, Carbon Dioxide 21.0, Anion Gap 10,BUN 20 H, Creatinine 0.99, Estim Creat Clear Calc 31.45 L, Est GFR (MDRD) Non-Af55 L, BUN/Creatinine Ratio 20.1 H, Glucose 101 H, Calcium 8.2, Magnesium 2.3 H Micro: Microbiology 12/01/24 10:25 Urine, Clean Catch Urine Culture - Preliminary Presumptive E. coli Cardiology Labs/Tests 12/03/24 04:18: WBC 3.0 L, RBC 4.07 L, Hgb 13.5, Hct 39.3, MCV 96.6, MCH 33.2 H,MCHC 34.4, Plt Count 98 L, MPV 11.4, Immature Gran % (Auto) 0.300, Neut % (Auto)47.2, Lymph % (Auto) 33.8, [place] % (Auto) 15.7 H, Eos % (Auto) 2.3, Baso % (Auto)0.7, Absolute Neuts (auto) 1.4 L, Nucleated RBC % 0, Sodium 137, Potassium 4.0, Chloride 106, Carbon Dioxide 21.0, Anion Gap 10, BUN 20 H, Creatinine 0.99, Est GFR (MDRD) Non-Af 55 L, BUN/Creatinine Ratio 20.1 H, Glucose 101 H, Calcium 8.2,Magnesium 2.3 H Rhythm: EKG: ECHO: Stress Test: Cardiac Cath: PCI: CT Surgery: Holter monitor: EPS: PPM: CXR: Chest CT Scan: Radiography Diagnostic Testing: Radiology Impression Echocardiogram 12/01/24 15:00 Interpretation Summary Normal left ventricular size. Mildly increased left ventricular wall thickness. Global hypokinesis with severe mid to apical hypokinesis and normal basal anterior, anteriorlateral wall motion. Moderately reduced LVEF ; estimated ejection fraction of 35%. Abnormal septal motion secondary to paced rhythm, D-shaped septum in diastole suggestive of increased right ventricular volume. Indeterminate diastolic function. Moderately dilated left atrium Mildly dilated right atrium Mild Right ventricular dilation with preserved function. Pacemaker lead noted in the RV. Unable to estimate RV systolic pressure due to insufficient tricuspid regurgitant envelope. Ordering Physician: Marga Butcher Referring Physician: Linda Mao Performed By: Jewell Sarkar RDCS, RVT Documented by User: Dr. Elias Arevalo MD 12/04/24 06:47 Assessment & Plan Assessment/Plan (1) Dizziness: (2) Fall: (3) Complete heart block: (4) AF (paroxysmal atrial fibrillation): (5) Congestive heart failure (CHF): QUALIFIERS: Heart failure chronicity: chronic Heart failure type:systolic Qualified Code(s): I50.22 - Chronic systolic (congestive) heart failure (6) Non-rheumatic mitral regurgitation: (7) History of coronary artery stent placement: (8) Hyperlipidemia: QUALIFIERS: Hyperlipidemia type: mixed hyperlipidemia Qualified Code(s): E78.2 - Mixed hyperlipidemia HPI Consult Data Date of Consult: 12/04/24 [facility] Medical History (Updated 12/03/24 @ 15:[address] Savi Patel MD) Anxiety Depression Hypothyroidism Non-smoker Atrial fibrillation Congestive heart failure (CHF) Pacemaker Myocardial infarct Shingles Atrial tachycardia Presence of permanent cardiac pacemaker CKD (chronic kidney disease) stage 3, GFR 30-59 ml/min Non-rheumatic mitral regurgitation Mitral valve insufficiency Rheumatoid arthritis STEMI (ST elevation myocardial infarction) Atherosclerosis of coronary artery of the [place] heart without angina pectoris History of coronary [...] Medications ?Medication ?Instructions ?Recorded ?Last Taken ?Type acetaminophen 500 mg tablet 1,000 mg PO BID pain 04/1205/16/20 History levothyroxine 75 mcg tablet 100 mcg PO DAILY thyroid 1 06/07/22 05/07/23 History calcium carbonate 1,000 mg PO DAILY@0800 PRN 1 06/08/22 11/29/24 History indigestion dapagliflozin propanediol 10 mg 10 mg PO QAM #90 tabs 02/01/24 11/29/24 Rx tablet (Farxiga) metoprolol tartrate 50 mg tablet 50 mg PO BID #180 tab s 05/01/24 Unknown Rx amiodarone 200 mg tablet 200 mg PO DAILY #90 tabs 11/29/24 Rx spironolactone 25 mg tablet 25 mg PO QAM #90 tabs 06/0311/29/24 Rx furosemide 40 mg tablet 40 mg PO QDAY #30 tabs 07/2611/29/24 Rx apixaban 2.5 mg tablet 2.5 mg PO BID #180 tabs 08/3111/29/24 Rx mirtazapine 30 mg tablet 45 mg PO DAILY 09/12/2411/02 History sacubitril 24 mg-valsartan 26 mg 1 tab PO BID #180 tab s 09/12/24 11/29/24 Rx tablet (Entresto) Allergy/AdvReac Type Severity Reaction Status Date / Time ticagrelor (From Brilinta) AdvReac Severe Severe Verified 11/30/24 10:43 dyspnea on exertion Family History Father Clotting [...] use type: does not use caffeine: Yes Risk Stratification Risk Stratification Applicable: No Lab / Micro Data 12/04/24 05:25 12/03/24 04:18 12/04/24 0647 <Electronically signed by Elias Arevalo MD> Cosigner Signature (if applicable): CC: Dr. Linda Mao MD~ Signed [facility] Work Phone: [phone] 673-406208-04-2025 Consult note [facility] Medical Records Department [address] [place] [address] Consultation - Cardiology 12/03/24 1225 MR#: [id number] Acct: [id number] Name: ROBERTO FERGUSON Rep #:[id number] : 1935 89 From: Elias Arevalo MD PCP: Dr. Linda Mao MD Status :ADM IN Location: [place] [address] Documented by User: Dr. Savi Patel MD 12/03/24 15:50 Assessment & Plan Assessment/Plan (1) Dizziness: (2) Fall: (3) Complete heart block: PLAN: s/p Pacemaker in place. (4) AF (paroxysmal atrial fibrillation): PLAN: - Patient with history of p. afib s/p cardioversion in the past, has been on metoprolol and amiodarone to maintain sinus rhythm. - Pacemaker interrogation showed increase episodes of atrial flutter/atrial fibrillation. - Pacemaker interrogation also showed under sensing that was adjusted yesterday after which the patient felt better. - Today the patient has tachycardia with paced rhythm findings suggestive of pacemaker mediated tachycardia, with questionable underlying atrial flutter - Dizziness could be likely secondary to tachycardia, in addition to cardiomyopathy, on top of underlying decreased vascular tone with baseline hypotension and orthostasis appears to be negative. - Will continue metoprolol and uptitrate as tolerated by blood pressure, will give 1 dose of metoprolol 5 mg to cut down on the conduction between the atria and ventricle and reevaluate the heart rate, continue amiodarone 200 mg p.o. daily. - Reevaluate the pacemaker function, if PVARP needs to be adjusted. - Continue Eliquis for anticoagulation however was using 2.5 twice daily given age and increased risk of falling. - Will hold off on Entresto and afterload reducing medication until blood pressure stable, hold on Lasix and any diuretics for now, will add DONAVON hose for better support and checking orthostatic vitals periodically. (5) Congestive heart failure (CHF): QUALIFIERS: Heart failure chronicity: chronic Heart failure type:systolic Qualified Code(s): I50.22- Chronic systolic (congestive) heart failure PLAN: - Patient has chronic cardiomyopathy likely ischemic given history of coronary disease with wall motion normalities noted on 2D echo that was done during this admission with a EF estimated to be 35% and wall motion normalities as listed above in the echo findings. - RV is dilated with preserved function, with findings suggestive of RV volume overload. - Continue metoprolol and uptitrate as tolerated, will hold off on Entresto and afterload reducing agents, monitor blood pressure until tachycardia is controlled and blood pressure is more stable. - Patient appears to be euvolemic no need for diuresis will continue to monitor. (6) Non-rheumatic mitral regurgitation: PLAN: - Secondary mitral regurgitation with left atrial dilation likely secondary to underlying cardiomyopathy (7) History of coronary artery stent placement: PLAN: - CAD s/p PCI - Appears stable, no chest pain. - tpn mildly elevated. - there are echo changes suggestive of unerlying scarring. - Will consider pharmacological stress test prior to discharge. - Will add aspirin to Eliquis 2.5 and will add Lipitor. (8) Hyperlipidemia: QUALIFIERS: Hyperlipidemia type: mixed hyperlipidemia Qualified Code(s): E78.2 - Mixed hyperlipidemia PLAN: - Will start statins. HPI Consult Data Date of Consult: 12/03/24 HPI Narrative Reason for Consultation: Dizziness HPI Narrative: ROBERTO FERGUSON, is a 89 F who presents with dizziness and a fall She presented to [facility] ED on 11/30/2024 with dizziness/lightheadedness with gait unsteadiness and fall at home. Patient lives at home alone, has fairly good functional status at baseline. Daughter lives nearby. Medical history is significant for HFrEF due to nonischemic cardiomyo kiarra with most recent EF 35%, paroxysmal A-fib, CAD with stenting, complete heart block s/p pacemaker placement, history of breast cancer s/p mastectomy and chemotherapy on observation, and CKD stage IIIa. Patient notes that she got up around 5 AM this morning to use the bathroom and felt lightheaded and dizzy leading to a fall onto her elbow. She did reportedly hit her head as well. She was able to crawl over to the sofa and went back to bed for a period of time, but when she got up around 9 AM she continued to have lightheadedness with dizziness when trying to stand and ambulate, so she called her daughter and came in for further evaluation. Patient has history of paroxysmal atrial fibrillation status post cardioversion has been in normal sinus with increased episodes of paroxysmal A-fib/flutter with RVR lately according to pacemaker interrogation, pacemaker interrogation also showed under sensing of the atrial lead after increasing sensing according to the rep done yesterday patient has been feeling better overnight temporarily thismorning the patient started to feel dizzy again especially with head movement she is tachycardic with questionable pacemaker mediated tachycardia involved. She denies active chest pain, no shortness of breath at rest still dizzy with sitting or standing, complains of neck pain from arthritis she is very unsteady using a walker to walk. [facility] Medical History (Updated 12/03/24 @ 15:[address] Savi Patel MD) Anxiety Depression Hypothyroidism Non-smoker Atrial fibrillation Congestive heart failure (CHF) Pacemaker Myocardial infarct Shingles Atrial tachycardia Presence of permanent cardiac pacemaker CKD (chronic kidney disease) stage 3, GFR 30-59 ml/min Non-rheumatic mitral regurgitation Mitral valve insufficiency Rheumatoid arthritis STEMI (ST elevation myocardial infarction) Atherosclerosis of coronary artery of [place] heart without angina pectoris History of coronary [...] Medications ?Medication ?Instructions ?Recorded ?Last Taken ?Type acetaminophen 500 mg tablet 1,000 mg PO BID pain 04/1205/16/20 History levothyroxine 75 mcg tablet 100 mcg PO DAILY thyroid 1 06/07/22 05/07/23 History calcium carbonate 1,000 mg PO DAILY@0800 PRN 1 06/08/22 11/29/24 History indigestion dapagliflozin propanediol 10 mg 10 mg PO QAM #90 tabs 02/01/24 11/29/24 Rx tablet (Farxiga) metoprolol tartrate 50 mg tablet 50 mg PO BID #180 tab s 05/01/24 Unknown Rx amiodarone 200 mg tablet 200 mg PO DAILY #90 tabs 11/29/24 Rx spironolactone 25 mg tablet 25 mg PO QAM #90 tabs 06/0311/29/24 Rx furosemide 40 mg tablet 40 mg PO QDAY #30 tabs 07/2611/29/24 Rx apixaban 2.5 mg tablet 2.5 mg PO BID #180 tabs 08/3111/29/24 Rx mirtazapine 30 mg tablet 45 mg PO DAILY 09/12/2411/02 History sacubitril 24 mg-valsartan 26 mg 1 tab PO BID #180 tab s 09/12/24 11/29/24 Rx tablet (Entresto) Allergy/AdvReac Type Severity Reaction Status Date / Time ticagrelor (From Brilinta) AdvReac Severe Severe Verified 11/30/24 10:43 dyspnea on exertion Family History Father Clotting [...] use type: does not use caffeine: Yes Physical Exam Narrative General: Alert, oriented x3, elderly, frail HEENT: Normocephalic, normal vision, normal EOM. Neck: Normal JVD, no carotid Bruit, no thyromegaly , no lymphadenopathy. Chest wall: Pacemaker pocket appears to be stable, normal shape, non tender. Cardiac: Regular tachycardia, no rubs, gallops or murmurs noted. Respiratory: Clear to auscultation bilaterally. Abdomen: Nondistended, nontender, no ascites or masses or organomegaly noted, normal bowel sounds. Extremities: Rheumatoid changes of her right hand , normal pulsations, no edema,normal strength andmuscle mass. Neurological: Gross CN examination is normal, Normal power in all extremities. Objective Data Vital Signs: Vital Signs Temp Pulse Resp BP Pulse Ox O2 Del Method 98.6 F 118 H 18 107/70 99 Room Air 12/03/24 08:00 12/03/24 09:54 12/03/24 08:00 12/03/24 08:00 12/03/24 08:00 12/03/24 08:00 Oxygen Delivery Method Room Air Weight: 111 lb 12.8 oz Body Mass Index (BMI) 18.6 Intake & Output: Intake and Output for Last 24 Hours 12/01/24 12/02/24 12/03/24 23:59 23:59 23:59 Intake Total 1455.67 / 1455.67 1150 / 1500 550 / 550 Output Total 300 / 300 Balance 1155.67 / 1155.67 1150 / 1500 550 / 550 Lab / Micro Data 12/04/24 05:25 12/03/24 04:18 Labs: Laboratory Results - last 24 hr 12/02/24 16:50: Troponin T High Sens 42 H 12/02/24 19:00: Troponin T Hi Sens 2 Hr 41 H 12/02/24 21:55: Troponin T Hi Sens 4Hr 48 H 12/03/24 04:18: WBC 3.0 L, RBC 4.07 L, Hgb 13.5, Hct 39.3, MCV 96.6, MCH 33.2 H,MCHC 34.4, RDW Std Deviation 51.2 H, RDW Coeff of Sharad 14.4, Plt Count 98 L, MPV 11.4, Immature Gran % (Auto) 0.300, Neut % (Auto) 47.2, Lymph % (Auto) 33.8, [place] % (Auto) 15.7 H, Eos % (Auto) 2.3, Baso % (Auto) 0.7, Absolute Neuts (auto) 1.4 L, Absolute Lymphs (auto) 1.01, Nucleated RBC % 0, Platelet Estimate MOD DEC,Sodium 137, Potassium 4.0, Chloride 106, Carbon Dioxide 21.0, Anion Gap 10,BUN 20 H, Creatinine 0.99, Estim Creat Clear Calc 31.45 L, Est GFR (MDRD) Non-Af55 L, BUN/Creatinine Ratio 20.1 H, Glucose 101 H, Calcium 8.2, Magnesium 2.3 H Micro: Microbiology 12/01/24 10:25 Urine, Clean Catch Urine Culture - Preliminary Presumptive E. coli Cardiology Labs/Tests 12/03/24 04:18: WBC 3.0 L, RBC 4.07 L, Hgb 13.5, Hct 39.3, MCV 96.6, MCH 33.2 H,MCHC 34.4, Plt Count 98 L, MPV 11.4, Immature Gran % (Auto) 0.300, Neut % (Auto)47.2, Lymph % (Auto) 33.8, [place] % (Auto) 15.7 H, Eos % (Auto) 2.3, Baso % (Auto)0.7, Absolute Neuts (auto) 1.4 L, Nucleated RBC % 0, [id number], Potassium 4.0, Chloride 106, Carbon Dioxide 21.0, Anion Gap 10, BUN 20 H, Creatinine 0.99, EstGFR (MDRD) Non-Af 55 L, BUN/Creatinine Ratio 20.1 H, Glucose 101 H, Calcium 8.2,Magnesium 2.3 H Rhythm: EKG: ECHO: Stress Test: Cardiac Cath: PCI: CT Surgery: Holter monitor: EPS: PPM: CXR: Chest CT Scan: Radiography Diagnostic Testing: Radiology Impression Echocardiogram 12/01/24 15:00 Interpretation Summary Normal left ventricular size. Mildly increased left ventricular wall thickness. Global hypokinesis with severe mid to apical hypokinesis and normal basal anterior, anteriorlateral wall motion. Moderately reduced LVEF ; estimated ejection fraction of 35%. Abnormal septal motion secondary to paced rhythm, D-shaped septum in diastole suggestive of increased right ventricular volume. Indeterminate diastolic function. Moderately dilated left atrium Mildly dilated right atrium Mild Right ventricular dilation with preserved function. Pacemaker lead noted in the RV. Unable to estimate RV systolic pressure due to insufficient tricuspid regurgitant envelope. Ordering Physician: Marga Butcher Referring Physician: Linda Mao Performed By: Jewell Sarkar, BAHMAN, RVT Documented by User: Dr. Elias Arevalo MD 12/04/24 06:47 Assessment & Plan Assessment/Plan (1) Dizziness: (2) Fall: (3) Complete heart block: (4) AF (paroxysmal atrial fibrillation): (5) Congestive heart failure (CHF): QUALIFIERS: Heart failure chronicity: chronic Heart failure type:systolic Qualified Code(s): I50.22- Chronic systolic (congestive) heart failure (6) Non-rheumatic mitral regurgitation: (7) History of coronary artery stent placement: (8) Hyperlipidemia: QUALIFIERS: Hyperlipidemia type: mixed hyperlipidemia Qualified Code(s): E78.2 - Mixed hyperlipidemia HPI Consult Data Date of Consult: 12/04/24 [facility] Medical History (Updated 12/03/24 @ 15:[address] Savi Patel MD) Anxiety Depression Hypothyroidism Non-smoker Atrial fibrillation Congestive heart failure (CHF) Pacemaker Myocardial infarct Shingles Atrial tachycardia Presence of permanent cardiac pacemaker CKD (chronic kidney disease) stage 3, GFR 30-59 ml/min Non-rheumatic mitral regurgitation Mitral valve insufficiency Rheumatoid arthritis STEMI (ST elevation myocardial infarction) Atherosclerosis of coronary artery of [place] heart without angina pectoris History of coronary [...] Medications ?Medication ?Instructions ?Recorded ?Last Taken ?Type acetaminophen 500 mg tablet 1,000 mg PO BID pain 04/1205/16/20 History levothyroxine 75 mcg tablet 100 mcg PO DAILY thyroid 1 06/07/22 05/07/23 History calcium carbonate 1,000 mg PO DAILY@0800 PRN 1 06/08/22 11/29/24 History indigestion dapagliflozin propanediol 10 mg 10 mg PO QAM #90 tabs 02/01/24 11/29/24 Rx tablet (Farxiga) metoprolol tartrate 50 mg tablet 50 mg PO BID #180 tab s 05/01/24 Unknown Rx amiodarone 200 mg tablet 200 mg PO DAILY #90 tabs 11/29/24 Rx spironolactone 25 mg tablet 25 mg PO QAM #90 tabs 06/0311/29/24 Rx furosemide 40 mg tablet 40 mg PO QDAY #30 tabs 07/2611/29/24 Rx apixaban 2.5 mg tablet 2.5 mg PO BID #180 tabs 08/3111/29/24 Rx mirtazapine 30 mg tablet 45 mg PO DAILY 09/12/2411/02 History sacubitril 24 mg-valsartan 26 mg 1 tab PO BID #180 tab s 09/12/24 11/29/24 Rx tablet (Entresto) Allergy/AdvReac Type Severity Reaction Status Date / Time ticagrelor (From Brilinta) AdvReac Severe Severe Verified 11/30/24 10:43 dyspnea on exertion Family History Father Clotting [...] use type: does not use caffeine: Yes Risk Stratification Risk Stratification Applicable: No Lab / Micro Data 12/04/24 05:25 12/03/24 04:18 12/04/24 0647 Cosigner Signature (if applicable): CC: Dr. Linda Mao MD~ Signed [facility]08-03-2025 Progress note Author Marga Butcher [facility] Note Date/Time December 03, 2024 10: 51am [facility] Medical Records Department [address] [place] [address] Progress Note - Hospitalist 12/03/24 1042 MR#: [id number] Acct: [id number] Name: ROBERTO FERGUSON Rep #:[id number] : 1935 89 From: Marga Butcher MD PCP: Dr. Linda Mao MD Status :ADM IN Location: [facility] [id number] Reason for Visit Chief Complaint: Dizziness/lightheadedness with gait unsteadiness and fall at home Subjective Subjective Patient did well overnight, and this morning sitting up felt lightheaded again, reports she thinks it is worse when she bends her head forward, felt a little nauseous earlier but not at time of evaluation, not presently having any chest pain or changes in her breathing Objective Data Objective Data Vital Signs: Vital Signs Temp Pulse Resp BP Pulse Ox O2 Del Method 97.6 F L 118 H 18 107/75 99 Room Air 12/03/24 02:00 12/03/24 09:54 12/03/24 02:00 12/03/24 02:00 12/03/24 02:00 12/03/24 07:46 Oxygen Delivery Method Room Air Weight: 50.712 kg Body Mass Index (BMI) 18.6 Intake & Output: Intake and Output for Last 24 Hours 12/01/24 12/02/24 12/03/24 23:59 23:59 23:59 Intake Total 1455.67 / 1455.67 1150 / 1500 550 / 550 Output Total 300 / 300 Balance 1155.67 / 1155.67 1150 / 1500 550 / 550 Lab / Micro Data 12/03/24 04:18 12/03/24 04:18 Labs: Laboratory Results - last 24 hr 12/02/24 16:50: Troponin T High Sens 42 H 12/02/24 19:00: Troponin T Hi Sens 2 Hr 41 H 12/02/24 21:55: Troponin T Hi Sens 4Hr 48 H 12/03/24 04:18: WBC 3.0 L, RBC 4.07 L, Hgb 13.5, Hct 39.3, MCV 96.6, MCH 33.2 H,MCHC 34.4, RDW Std Deviation 51.2 H, RDW Coeff of Sharad 14.4, Plt Count 98 L, MPV 11.4, Immature Gran % (Auto) 0.300, Neut % (Auto) 47.2, Lymph % (Auto) 33.8, [place] % (Auto) 15.7 H, Eos % (Auto) 2.3, Baso % (Auto) 0.7, Absolute Neuts (auto) 1.4 L, Absolute Lymphs (auto) 1.01, Nucleated RBC % 0, Platelet Estimate MOD DEC, Sodium 137, Potassium 4.0, Chloride 106, Carbon Dioxide 21.0, Anion Gap 10,BUN 20 H, Creatinine 0.99, Estim Creat Clear Calc 31.45 L, Est GFR (MDRD) Non-Af55 L, BUN/Creatinine Ratio 20.1 H, Glucose 101 H, Calcium 8.2, Magnesium 2.3 H Micro: Microbiology 12/01/24 10:25 Urine, Clean Catch Urine Culture - Preliminary Presumptive E. coli Radiography Diagnostic Testing: Radiology Impression Echocardiogram 12/01/24 15:00 Interpretation Summary Normal left ventricular size. Mildly increased left ventricular wall thickness. Global hypokinesis with severe mid to apical hypokinesis and normal basal anterior, anteriorlateral wall motion. Moderately reduced LVEF ; estimated ejection fraction of 35%. Abnormal septal motion secondary to paced rhythm, D-shaped septum in diastole suggestive of increased right ventricular volume. Indeterminate diastolic function. Moderately dilated left atrium Mildly dilated right atrium Mild Right ventricular dilation with preserved function. Pacemaker lead noted in the RV. Unable to estimate RV systolic pressure due to insufficient tricuspid regurgitant envelope. Ordering Physician: Marga Butcher Referring Physician: Linda Mao Performed By: Jewell Sarkar RDCS, RVT Physical Exam Narrative General: Alert, oriented HEENT: Atraumatic, normocephalic Eyes: Anicteric, normal conjunctiva, extraocular movements grossly intact Neck: Supple Respiratory: Normal respiratory effort, no overt wheezes or rhonchi Cardiovascular: Slightly irregular GI: Soft, nontender, nondistended Extremities: No significant pitting edema Musculoskeletal: Moving all extremities, does have changes consistent with RA inher hands Neuro: No overt focal neurological deficits Skin: No rashes appreciated Psych: Cooperative Assessment & Plan Assessment/Plan (1) Dizziness: (2) Fall: PLAN: Plan #Dizziness/lightheadedness with gait unsteadiness and fall at home ? Admit under observation status to [facility]. PT/OT/case management consulted. Unclear etiology but symptoms do seem most consistent with presyncopal symptoms. Very low concern for stroke given numbness/tingling is reportedly present in bilateral hands and feet and no motor symptoms are noted. Home medications and dehydration would be likely contributors to presyncopal symptoms. Unable to obtain orthostatic vitals in ED as patient could not stand without significant symptoms. Given 1 L of IV fluids in the ED; will give another 1 L of fluids over several hours this evening. Hold home Lasix, Jardiance, Lopressor, Entresto and spironolactone for now. Appreciate therapy recommendations. -12/01: Blood pressure remains low 100s and high 90s despite holding Lasix, Jardiance, Lopressor, Entresto and spironolactone. Suspect patient may have been fairly hypotensive at home given her blood pressure you been off of those medications, given this is a change we will check a repeat echo to see if there are any major changes that would be contributing. Could always consider midodrine and resuming some of patient's home medications at lower doses and as tolerated. Patient to work with PT/OT. Did check UA to assess for any underlying occult infection but this was not suggestive of UTI -12/02: Patient initially felt better and orthostats were negative however had another episode of lightheadedness, EKG showed EF that is the same but did show some wall motion abnormalities. Patient has not had any chest pain or shortnessof breath, unclear significance, EKG showed a ventricularly paced rhythm with frequent atrial paced complexes. Had patient's pacemaker interrogated and it reportedly showed dyssynchrony and that some P waves were not being recognized, settings were adjusted to improve consistency and capture and that information will be given to her outpatient cardiology office who is monitoring her pacemaker. Unclear if this desynchrony may have had any bearing on these lightheaded episodes as reportedly there appeared to be some episodes and was a flutter as well, blood pressure 111/72, restarting beta-kemal at low-dose and will uptitrate as tolerated, will consult cardiology given the echo changes withlightheaded episodes suspected to be cardiac in nature, cycling troponins given the wall motion abnormalities however no current pain or active ACS suspected, unclear if she could have had an event previous or a silent [place] sometime within the last year since her last echo. Start back medications as tolerated, will place patient on MedSurg telemetry, given she is not having any active cardiac complaints do not think patient needs urgently transferred to PCU however if anyadditional concerns arrived can transfer floors. Currently stable. Appreciate cardiology recommendations -12/03: Heart rate now in the 1 teens and still intermittently irregular, blood pressure is still stable low 100s, increasing her beta-kemal, continuing amiodarone, reports today that symptoms seem worse when she tips her neck forward and noted family history of carotid stenosis, patient agreeable for carotid duplex. Cardiology consult pending, patient being monitored on telemetry. Patient is not had chest pain but did check troponins yesterday given wall motion abnormality, they were fairly flat # Chronic HFrEF, paroxysmal A-fib on Eliquis, history of complete heart block s/p pacemaker placement, hypertension, hyperlipidemia/coronary artery disease status post stenting ? Follows with cardiology, last office visit in August. History of STEMI with stenting to RCA x 1 in 2019. Had multiple ED visits for presyncopal symptoms and 2022 and was found to have A-fib. Had DEBRA cardioversion done in January 2023. Continued to have presyncopal symptoms and was then found to have complete heart block s/p pacemaker placement in January 2023. Last echo in 11/2023 showed EF 35%, moderate global hypokinesis of the LV, mildly dilated RV, no significant valvular disease. Concern for home medications contributing to presentation as above. Given IV fluids and holding home meds as above. Continue home Eliquis and amiodarone. -12/01: Patient on amiodarone and Eliquis, other medications held due to low bloodpressure. Obtaining echo as above, monitor fluid status, presently does not appear overloaded -12/02: Repeat EF 35% with wall motion abnormalities that were not present previously, given this with patient's intermittent lightheaded episodes and the above cardiology consulted -12/03: Anemia, increasing beta-kemal, blood pressure is better than it was on admission. Weight has been stable and no signs or symptoms of fluid overload though is listed as positive fluid balance, do not think accurate output has been documented # Tingling in fingers and toes -12/01: Unclear etiology, this is symmetric in upper and lower extremities so do not think this is consistent with stroke, does report poor p.o. intake at home and that she will have to remind herself to eat. Will check B12, check magnesium, will start patient on thiamine and folate -12/02: This remains, unclear if there is a peripheral neuropathy, managing the above, may need further workup or monitoring on an outpatient basis if this doesnot improve -12/03: Continue to monitor, may need to consider EMG on outpatient basis or further workup Chronic medical problems and/or problems not being actively addressed during today's encounter: # History of breast cancer s/p mastectomy and chemotherapy ? Follows with oncology, last office visit in October. Currently under observation. No inpatient needs, continue outpatient follow-up. # Hypothyroidism ? TSH within normal limits, continue on Synthroid # History of RA - Patient on injectables outpatient #DVT ppx: Chronically on Eliquis Marga Butcher MD Time spent in the patient's overall evaluation, decision-making process, review of diagnostic data, adjustment of management, discussion with other providers, nursing and ancillary staff involved in patient's care documentation, 39 minutes Charges/Coding Visit Charges Inpatient E&M: 62497 Init Hosp L2 12/03/24 1047 <Electronically signed by Marga Butcher MD> Cosigner Signature (if applicable): CC: ~ Signed ADDENDUM by Dr. Marga Butcher MD on 12/03/24 at 1051 Addendum Wrong code initially placed, added appropriate code for hospital follow-up level2 Visit Charges Inpatient E&M: 04020 Subs Hosp L2 12/03/24 1051<Electronically signed by Marga Butcher MD> Cosigner Signature (if applicable): cc: ~* Signed [facility] Work Phone: 1(337) 921-553408-03-2025 Progress note Author Marga Butcher [facility] Note Date/Time December 03, 2024 10: 51am [facility] Medical Records Department [address] [place] [address] Progress Note - Hospitalist 12/03/24 1042 MR#: [id number] Acct: [id number] Name: ROBERTO FERGUSON Rep #:[id number] : 1935 89 From: Marga Butcher MD PCP: Dr. Linda Mao MD Status :ADM IN Location: DC3 DG151-4 Reason for Visit Chief Complaint: Dizziness/lightheadedness with gait unsteadiness and fall at home Subjective Subjective Patient did well overnight, and this morning sitting up felt lightheaded again, reports she thinks it is worse when she bends her head forward, felt a little nauseous earlier but not at time of evaluation, not presently having any chest pain or changes in her breathing Objective Data Objective Data Vital Signs: Vital Signs Temp Pulse Resp BP Pulse Ox O2 Del Method 97.6 F L 118 H 18 107/75 99 Room Air 12/03/24 02:00 12/03/24 09:54 12/03/24 02:00 12/03/24 02:00 12/03/24 02:00 12/03/24 07:46 Oxygen Delivery Method Room Air Weight: 50.712 kg Body Mass Index (BMI) 18.6 Intake & Output: Intake and Output for Last 24 Hours 12/01/24 12/02/24 12/03/24 23:59 23:59 23:59 Intake Total 1455.67 / 1455.67 1150 / 1500 550 / 550 Output Total 300 / 300 Balance 1155.67 / 1155.67 1150 / 1500 550 / 550 Lab / Micro Data 12/03/24 04:18 12/03/24 04:18 Labs: Laboratory Results - last 24 hr 12/02/24 16:50: Troponin T High Sens 42 H 12/02/24 19:00: Troponin T Hi Sens 2 Hr 41 H 12/02/24 21:55: Troponin T Hi Sens 4Hr 48 H 12/03/24 04:18: WBC 3.0 L, RBC 4.07 L, Hgb 13.5, Hct 39.3, MCV 96.6, MCH 33.2 H,MCHC 34.4, RDW Std Deviation 51.2 H, RDW Coeff of Sharad 14.4, Plt Count 98 L, MPV 11.4, Immature Gran % (Auto) 0.300, Neut % (Auto) 47.2, Lymph % (Auto) 33.8, [place] % (Auto) 15.7 H, Eos % (Auto) 2.3, Baso % (Auto) 0.7, Absolute Neuts (auto) 1.4 L, Absolute Lymphs (auto) 1.01, Nucleated RBC % 0, Platelet Estimate MOD DEC, Sodium 137, Potassium 4.0, Chloride 106, Carbon Dioxide 21.0, Anion Gap 10,BUN 20 H, Creatinine 0.99, Estim Creat Clear Calc 31.45 L, Est GFR (MDRD) Non-Af55 L, BUN/Creatinine Ratio 20.1 H, Glucose 101 H, Calcium 8.2, Magnesium 2.3 H Micro: Microbiology 12/01/24 10:25 Urine, Clean Catch Urine Culture - Preliminary Presumptive E. coli Radiography Diagnostic Testing: Radiology Impression Echocardiogram 12/01/24 15:00 Interpretation Summary Normal left ventricular size. Mildly increased left ventricular wall thickness. Global hypokinesis with severe mid to apical hypokinesis and normal basal anterior, anteriorlateral wall motion. Moderately reduced LVEF ; estimated ejection fraction of 35%. Abnormal septal motion secondary to paced rhythm, D-shaped septum in diastole suggestive of increased right ventricular volume. Indeterminate diastolic function. Moderately dilated left atrium Mildly dilated right atrium Mild Right ventricular dilation with preserved function. Pacemaker lead noted in the RV. Unable to estimate RV systolic pressure due to insufficient tricuspid regurgitant envelope. Ordering Physician: Marga Butcher Referring Physician: Linda Mao Performed By: Jewell Sarkar, BAHMAN, RVT Physical Exam Narrative General: Alert, oriented HEENT: Atraumatic, normocephalic Eyes: Anicteric, normal conjunctiva, extraocular movements grossly intact Neck: Supple Respiratory: Normal respiratory effort, no overt wheezes or rhonchi Cardiovascular: Slightly irregular GI: Soft, nontender, nondistended Extremities: No significant pitting edema Musculoskeletal: Moving all extremities, does have changes consistent with RA inher hands Neuro: No overt focal neurological deficits Skin: No rashes appreciated Psych: Cooperative Assessment & Plan Assessment/Plan (1) Dizziness: (2) Fall: PLAN: Plan #Dizziness/lightheadedness with gait unsteadiness and fall at home ? Admit under observation status to [facility]. PT/OT/case management consulted. Unclear etiology but symptoms do seem most consistent with presyncopal symptoms. Very low concern for stroke given numbness/tingling is reportedly present in bilateral hands and feet and no motor symptoms are noted. Home medications and dehydration would be likely contributors to presyncopal symptoms. Unable to obtain orthostatic vitals in ED as patient could not stand without significant symptoms. Given 1 L of IV fluids in the ED; will give another 1 L of fluids over several hours this evening. Hold home Lasix, Jardiance, Lopressor, Entresto and spironolactone for now. Appreciate therapy recommendations. -12/01: Blood pressure remains low 100s and high 90s despite holding Lasix, Jardiance, Lopressor, Entresto and spironolactone. Suspect patient may have been fairly hypotensive at home given her blood pressure you been off of those medications, given this is a change we will check a repeat echo to see if there are any major changes that would be contributing. Could always consider midodrine and resuming some of patient's home medications at lower doses and as tolerated. Patient to work with PT/OT. Did check UA to assess for any underlying occult infection but this was not suggestive of UTI -12/02: Patient initially felt better and orthostats were negative however had another episode of lightheadedness, EKG showed EF that is the same but did show some wall motion abnormalities. Patient has not had any chest pain or shortnessof breath, unclear significance, EKG showed a ventricularly paced rhythm with frequent atrial paced complexes. Had patient's pacemaker interrogated and it reportedly showed dyssynchrony and that some P waves were not being recognized, settings were adjusted to improve consistency and capture and that information will be given to her outpatient cardiology office who is monitoring her pacemaker. Unclear if this desynchrony may have had any bearing on these lightheaded episodes as reportedly there appeared to be some episodes and was a flutter as well, blood pressure 111/72, restarting beta-kemal at low-dose and will uptitrate as tolerated, will consult cardiology given the echo changes withlightheaded episodes suspected to be cardiac in nature, cycling troponins given the wall motion abnormalities however no current pain or active ACS suspected, unclear if she could have had an event previous or a silent [place] sometime within the last year since her last echo. Start back medications as tolerated, will place patient on MedSurg telemetry, given she is not having any active cardiac complaints do not think patient needs urgently transferred to PCU however if anyadditional concerns arrived can transfer floors. Currently stable. Appreciate cardiology recommendations -12/03: Heart rate now in the 1 teens and still intermittently irregular, blood pressure is still stable low 100s, increasing her beta-kemal, continuing amiodarone, reports today that symptoms seem worse when she tips her neck forward and noted family history of carotid stenosis, patient agreeable for carotid duplex. Cardiology consult pending, patient being monitored on telemetry. Patient is not had chest pain but did check troponins yesterday given wall motion abnormality, they were fairly flat # Chronic HFrEF, paroxysmal A-fib on Eliquis, history of complete heart block s/p pacemaker placement, hypertension, hyperlipidemia/coronary artery disease status post stenting ? Follows with cardiology, last office visit in August. History of STEMI with stenting to RCA x 1 in 2019. Had multiple ED visits for presyncopal symptoms and 2022 and was found to have A-fib. Had DEBRA cardioversion done in January 2023. Continued to have presyncopal symptoms and was then found to have complete heart block s/p pacemaker placement in January 2023. Last echo in 11/2023 showed EF 35%, moderate global hypokinesis of the LV, mildly dilated RV, no significant valvular disease. Concern for home medications contributing to presentation as above. Given IV fluids and holding home meds as above. Continue home Eliquis and amiodarone. -12/01: Patient on amiodarone and Eliquis, other medications held due to low bloodpressure. Obtaining echo as above, monitor fluid status, presently does not appear overloaded -12/02: Repeat EF 35% with wall motion abnormalities that were not present previously, given this with patient's intermittent lightheaded episodes and the above cardiology consulted -12/03: Anemia, increasing beta-kemal, blood pressure is better than it was on admission. Weight has been stable and no signs or symptoms of fluid overload though is listed as positive fluid balance, do not think accurate output has been documented # Tingling in fingers and toes -12/01: Unclear etiology, this is symmetric in upper and lower extremities so do not think this is consistent with stroke, does report poor p.o. intake at home and that she will have to remind herself to eat. Will check B12, check magnesium, will start patient on thiamine and folate -12/02: This remains, unclear if there is a peripheral neuropathy, managing the above, may need further workup or monitoring on an outpatient basis if this doesnot improve -12/03: Continue to monitor, may need to consider EMG on outpatient basis or further workup Chronic medical problems and/or problems not being actively addressed during today's encounter: # History of breast cancer s/p mastectomy and chemotherapy ? Follows with oncology, last office visit in October. Currently under observation. No inpatient needs, continue outpatient follow-up. # Hypothyroidism ? TSH within normal limits, continue on Synthroid # History of RA - Patient on injectables outpatient #DVT ppx: Chronically on Eliquis Marga Butcher MD Time spent in the patient's overall evaluation, decision-making process, review of diagnostic data, adjustment of management, discussion with other providers, nursing and ancillary staff involved in patient's care documentation, 39 minutes Charges/Coding Visit Charges Inpatient E&M: 45666 Init Hosp L2 12/03/24 1047 <Electronically signed by Marga Butcher MD> Cosigner Signature (if applicable): CC: ~ Signed ADDENDUM by Dr. Marga Btucher MD on 12/03/24 at 1051 Addendum Wrong code initially placed, added appropriate code for hospital follow-up level2 Visit Charges Inpatient E&M: 11338 Subs Hosp L2 12/03/24 1051<Electronically signed by Marga Butcher MD> Cosigner Signature (if applicable): cc: ~* Signed [facility] Work Phone: 1(451) 889-317808-03-2025 Progress note [facility] Medical Records Department [address] [place] [address] Progress Note - Hospitalist 12/03/24 1042 MR#: [id number] Acct: [id number] Name: ROBERTO FERGUSON Rep #:[id number] : 1935 89 From: Marga Butcher MD PCP: Dr. Linda Mao MD Status :ADM IN Location: [facility] TL713-1 Reason for Visit Chief Complaint: Dizziness/lightheadedness with gait unsteadiness and fall at home Subjective Subjective Patient did well overnight, and this morning sitting up felt lightheaded again, reports she thinks it is worse when she bends her head forward, felt a little nauseous earlier but not at time of evaluation, not presently having any chest pain or changes in her breathing Objective Data Objective Data Vital Signs: Vital Signs Temp Pulse Resp BP Pulse Ox O2 Del Method 97.6 F L 118 H 18 107/75 99 Room Air 12/03/24 02:00 12/03/24 09:54 12/03/24 02:00 12/03/24 02:00 12/03/24 02:00 12/03/24 07:46 Oxygen Delivery Method Room Air Weight: 50.712 kg Body Mass Index (BMI) 18.6 Intake & Output: Intake and Output for Last 24 Hours 12/01/24 12/02/24 12/03/24 23:59 23:59 23:59 Intake Total 1455.67 / 1455.67 1150 / 1500 550 / 550 Output Total 300 / 300 Balance 1155.67 / 1155.67 1150 / 1500 550 / 550 Lab / Micro Data 12/03/24 04:18 12/03/24 04:18 Labs: Laboratory Results - last 24 hr 12/02/24 16:50: Troponin T High Sens 42 H 12/02/24 19:00: Troponin T Hi Sens 2 Hr 41 H 12/02/24 21:55: Troponin T Hi Sens 4Hr 48 H 12/03/24 04:18: WBC 3.0 L, RBC 4.07 L, Hgb 13.5, Hct 39.3, MCV 96.6, MCH 33.2 H,MCHC 34.4, RDW Std Deviation 51.2 H, RDW Coeff of Sharad 14.4, Plt Count 98 L, MPV 11.4, Immature Gran % (Auto) 0.300, Neut % (Auto) 47.2, Lymph % (Auto) 33.8, [place] % (Auto) 15.7 H, Eos % (Auto) 2.3, Baso % (Auto) 0.7, Absolute Neuts (auto) 1.4 L, Absolute Lymphs (auto) 1.01, Nucleated RBC % 0, Platelet Estimate MOD DEC,Sodium 137, Potassium 4.0, Chloride 106, Carbon Dioxide 21.0, Anion Gap 10,BUN 20 H, Creatinine 0.99, Estim Creat Clear Calc 31.45 L, Est GFR (MDRD) Non-Af55 L, BUN/Creatinine Ratio 20.1 H, Glucose 101 H, Calcium 8.2, Magnesium 2.3 H Micro: Microbiology 12/01/24 10:25 Urine, Clean Catch Urine Culture - Preliminary Presumptive E. coli Radiography Diagnostic Testing: Radiology Impression Echocardiogram 12/01/24 15:00 Interpretation Summary Normal left ventricular size. Mildly increased left ventricular wall thickness. Global hypokinesis with severe mid to apical hypokinesis and normal basal anterior, anteriorlateral wall motion. Moderately reduced LVEF ; estimated ejection fraction of 35%. Abnormal septal motion secondary to paced rhythm, D-shaped septum in diastole suggestive of increased right ventricular volume. Indeterminate diastolic function. Moderately dilated left atrium Mildly dilated right atrium Mild Right ventricular dilation with preserved function. Pacemaker lead noted in the RV. Unable to estimate RV systolic pressure due to insufficient tricuspid regurgitant envelope. Ordering Physician: Marga Butcher Referring Physician: Linda Mao Performed By: Jewell Sarkar RDCS, RVT Physical Exam Narrative General: Alert, oriented HEENT: Atraumatic, normocephalic Eyes: Anicteric, normal conjunctiva, extraocular movements grossly intact Neck: Supple Respiratory: Normal respiratory effort, no overt wheezes or rhonchi Cardiovascular: Slightly irregular GI: Soft, nontender, nondistended Extremities: No significant pitting edema Musculoskeletal: Moving all extremities, does have changes consistent with RA inher hands Neuro: No overt focal neurological deficits Skin: No rashes appreciated Psych: Cooperative Assessment & Plan Assessment/Plan (1) Dizziness: (2) Fall: PLAN: Plan #Dizziness/lightheadedness with gait unsteadiness and fall at home ? Admit under observation status to [facility]. PT/OT/case management consulted. Unclear etiology but symptoms do seem most consistent with presyncopal symptoms. Very low concern for stroke given numbness/tingling is reportedly present in bilateral hands and feet and no motor symptoms are noted. Home medications and dehydration would be likely contributors to presyncopal symptoms. Unable to obtain orthostatic vitals in ED as patient could not stand without significant symptoms. Given 1 L of IV fluids in the ED; will give another 1 L of fluids over several hours this evening. Hold home Lasix, Jardiance, Lopressor, Entresto and spironolactone for now. Appreciate therapy recommendations. -12/01: Blood pressure remains low 100s and high 90s despite holding Lasix, Jardiance, Lopressor, Entresto and spironolactone. Suspect patient may have been fairly hypotensive at home given her blood pressure you been off of those medications, given this is a change we will check a repeat echo to seeif there are any major changes that would be contributing. Could always consider midodrine and resuming some of patient's home medications at lower doses and as tolerated. Patient to work with PT/OT.Did check UA to assess for any underlying occult infection but this was not suggestive of UTI -12/02: Patient initially felt better and orthostats were negative however had another episode of lightheadedness, EKG showed EF that is the same but did show some wall motion abnormalities. Patient has not had any chest pain or shortnessof breath, unclear significance, EKG showed a ventricularly paced rhythm with frequent atrial paced complexes. Had patient's pacemaker interrogated and it reportedly showed dyssynchrony and that some P waves were not being recognized, settings were adjusted to improve consistency and capture and that information will be given to her outpatient cardiology officewho is monitoring her pacemaker. Unclear if this desynchrony may have had any bearing on these lightheaded episodes as reportedly there appeared to be some episodes and was a flutter as well, blood pressure 111/72, restarting beta-kemal at low-dose and will uptitrate as tolerated, will consult cardiology given the echo changes withlightheaded episodes suspected to be cardiac in nature, cycling t roponins given the wall motion abnormalities however no current pain or active ACS suspected, unclear if she could have had an event previous or a silent [place] sometime within the last year since her last echo. Start back medications as tolerated, will place patient on MedSurg telemetry, given she is not having any active cardiac complaints do not think patient needs urgently transferred to PCU however if anyadditional concerns arrived can transfer floors. Currently stable. Appreciate cardiology recommendations -12/03: Heart rate now in the 1 teens and still intermittently irregular, blood pressure is still stable low 100s, increasing her beta-kemal, continuing amiodarone, reports today that symptoms seem worse when she tips her neck forward and noted family history of carotid stenosis, patient agreeable for carotid duplex. Cardiology consult pending, patient being monitored on telemetry. Patient is nothad chest pain but did check troponins yesterday given wall motion abnormality, they were fairly flat # Chronic HFrEF, paroxysmal A-fib on Eliquis, history of complete heart block s/p pacemaker placement, hypertension, hyperlipidemia/coronary artery disease status post stenting ? Follows with cardiology, last office visit in August. History of STEMI with stenting to RCA x 1 in 2019. Had multiple ED visits for presyncopal symptoms and 2022 and was found to have A-fib. Had DEBRA cardioversion done in January 2023. Continued to have presyncopal symptoms and was then found to have complete heart block s/p pacemaker placement in January 2023. Last echo in 11/2023 showed EF 35%, moderate global hypokinesis of the LV, mildly dilated RV, no significant valvular disease. Concern for home medications contributing to presentation as above. Given IV fluids and holding home meds as above. Continue home Eliquis and amiodarone. -12/01: Patient on amiodarone and Eliquis, other medications held due to low bloodpressure. Obtainingecho as above, monitor fluid status, presently does not appear overloaded -12/02: Repeat EF 35% with wall motion abnormalities that were not present previously, given this with patient's intermittent lightheaded episodes and the above cardiology consulted -12/03: Anemia, increasing beta-kemal, blood pressure is better than it was on admission. Weight has been stable and no signs or symptoms of fluid overload though is listed as positive fluid balance,do not think accurate output has been documented # Tingling in fingers and toes -12/01: Unclear etiology, this is symmetric in upper and lower extremities so do not think this is consistent with stroke, does report poor p.o. intake at home and that she will have to remind herself to eat. Will check B12, check magnesium, will start patient on thiamine and folate -12/02: This remains, unclear if there is a peripheral neuropathy, managing the above, may need further workup or monitoring on an outpatient basis if this doesnot improve -12/03: Continue to monitor, may need to consider EMG on outpatient basis or further workup Chronic medical problems and/or problems not being actively addressed during today's encounter: # History of breast cancer s/p mastectomy and chemotherapy ? Follows with oncology, last office visit in October. Currently under observation. No inpatient needs, continue outpatient follow-up. # Hypothyroidism ? TSH within normal limits, continue on Synthroid # History of RA - Patient on injectables outpatient #DVT ppx: Chronically on Eliquis Marga Butcher MD Time spent in the patient's overall evaluation, decision-making process, review of diagnostic data,adjustment of management, discussion with other providers, nursing and ancillary staff involved in patient's care documentation, 39 minutes Charges/Coding Visit Charges Inpatient E&M: 52221 Init Hosp L2 12/03/24 1047 Cosigner Signature (if applicable): CC: ~ Signed ADDENDUM by Dr. Marga Butcher MD on 12/03/24 at 1051 Addendum Wrong code initially placed, added appropriate code for hospital follow-up level2 Visit Charges Inpatient E&M: 23655 Subs Hosp L2 12/03/24 1051 Cosigner Signature (if applicable): cc: ~* Signed [facility]08-02-2025 Progress note Author Marga Butcher [facility] Note Date/Time December 02, 2024 5:3 5pm [facility] Medical Records Department [address] [place] [address] Progress Note - Hospitalist 12/02/24 1721 MR#: [id number] Acct: [id number] Name: ROBERTO FERGUSON Rep #:[id number] : 1935 89 From: Marga Butcher MD PCP: Dr. Linda Mao MD Status :ADM IN Location: [place] [address] Reason for Visit Chief Complaint: Dizziness/lightheadedness with gait unsteadiness and fall at home Subjective Subjective Patient earlier in the day had been feeling better however around lunchtime had another episode of lightheadedness when she moved after doing a puzzle. She didnot have any chest pain or new shortness of breath, reports the feeling was lightheaded and not dizziness Objective Data Objective Data Vital Signs: Vital Signs Temp Pulse Resp BP Pulse Ox O2 Del Method 98.0 F 88 18 111/72 98 Room Air 12/02/24 16:49 12/02/24 16:49 12/02/24 16:49 12/02/24 16:49 12/02/24 16:49 12/02/24 16:49 Oxygen Delivery Method Room Air Weight: 50.712 kg Body Mass Index (BMI) 18.6 Intake & Output: Intake and Output for Last 24 Hours 11/30/24 12/01/24 12/02/24 23:59 23:59 23:59 Intake Total 1500 / 1500 1455.67 / 1455.67 650 / 650 Output Total 300 / 300 Balance 1500 / 1500 1155.67 / 1155.67 650 / 650 Lab / Micro Data 12/02/24 06:42 12/02/24 06:42 Labs: Laboratory Results - last 24 hr 12/02/24 06:42: WBC 2.6 L, RBC 4.15 L, Hgb 13.8, Hct 40.1, MCV 96.6, MCH 33.3 H,MCHC 34.4, RDW Std Deviation 51.0 H, RDW Coeff of Sharad 14.5, Plt Count 111 L, MPV11.5, Immature Gran % (Auto) 0.000, Neut % (Auto) 39.1 L, Lymph % (Auto) 40.7, [place] % (Auto) 17.1 H, Eos % (Auto) 2.3, Baso % (Auto) 0.8, Absolute Neuts (auto) 1.0 L, Absolute Lymphs (auto) 1.07, Nucleated RBC % 0, Sodium 139, Potassium 4.3, Chloride 107, Carbon Dioxide 22.1, Anion Gap 10, BUN 20 H, Creatinine 1.08,Estim Creat Clear Calc 28.83 L, Est GFR (MDRD) Non-Af 49 L, BUN/Creatinine Ratio18.7, Glucose 91, Calcium 8.0 Micro: Microbiology 12/01/24 10:25 Urine, Clean Catch Urine Culture - Preliminary Presumptive E. coli Radiography Diagnostic Testing: Radiology Impression Echocardiogram 12/01/24 15:00 Interpretation Summary Normal left ventricular size. Mildly increased left ventricular wall thickness. Global hypokinesis with severe mid to apical hypokinesis and normal basal anterior, anteriorlateral wall motion. Moderately reduced LVEF ; estimated ejection fraction of 35%. Abnormal septal motion secondary to paced rhythm, D-shaped septum in diastole suggestive of increased right ventricular volume. Indeterminate diastolic function. Moderately dilated left atrium Mildly dilated right atrium Mild Right ventricular dilation with preserved function. Pacemaker lead noted in the RV. Unable to estimate RV systolic pressure due to insufficient tricuspid regurgitant envelope. Ordering Physician: Marga Butcher Referring Physician: Linda Mao Performed By: Jewell Sarkar, BAHMAN, RVT Physical Exam Narrative General: Alert, oriented, no apparent distress HEENT: Atraumatic, normocephalic Eyes: Anicteric, normal conjunctiva, extraocular movements grossly intact Neck: Supple Respiratory: Clear to auscultation bilaterally, normal respiratory effort Cardiovascular: Slightly irregular GI: Soft, nontender, nondistended Extremities: No edema Musculoskeletal: Moving all extremities Neuro: No overt focal neurological deficits Skin: No rashes appreciated Psych: Cooperative Assessment & Plan Assessment/Plan (1) Dizziness: (2) Fall: PLAN: Plan #Dizziness/lightheadedness with gait unsteadiness and minor fall at home ? Admit under observation status to [facility]. PT/OT/case management consulted. Unclear etiology but symptoms do seem most consistent with presyncopal symptoms. Very low concern for stroke given numbness/tingling is reportedly present in bilateral hands and feet and no motor symptoms are noted. Home medications and dehydration would be likely contributors to presyncopal symptoms. Unable to obtain orthostatic vitals in ED as patient could not stand without significant symptoms. Given 1 L of IV fluids in the ED; will give another 1 L of fluids over several hours this evening. Hold home Lasix, Jardiance, Lopressor, Entresto and spironolactone for now. Appreciate therapy recommendations. -12/01: Blood pressure remains low 100s and high 90s despite holding Lasix, Jardiance, Lopressor, Entresto and spironolactone. Suspect patient may have been fairly hypotensive at home given her blood pressure you been off of those medications, given this is a change we will check a repeat echo to see if there are any major changes that would be contributing. Could always consider midodrine and resuming some of patient's home medications at lower doses and as tolerated. Patient to work with PT/OT. Did check UA to assess for any underlying occult infection but this was not suggestive of UTI -12/02: Patient initially felt better and orthostats were negative however had another episode of lightheadedness, EKG showed EF that is the same but did show some wall motion abnormalities. Patient has not had any chest pain or shortnessof breath, unclear significance, EKG showed a ventricularly paced rhythm with frequent atrial paced complexes. Had patient's pacemaker interrogated and it reportedly showed dyssynchrony and that some P waves were not being recognized, settings were adjusted to improve consistency and capture and that information will be given to her outpatient cardiology office who is monitoring her pacemaker. Unclear if this desynchrony may have had any bearing on these lightheaded episodes as reportedly there appeared to be some episodes and was a flutter as well, blood pressure 111/72, restarting beta-kemal at low-dose and will uptitrate as tolerated, will consult cardiology given the echo changes withlightheaded episodes suspected to be cardiac in nature, cycling troponins given the wall motion abnormalities however no current pain or active ACS suspected, unclear if she could have had an event previous or a silent [place] sometime within the last year since her last echo. Start back medications as tolerated, will place patient on MedSurg telemetry, given she is not having any active cardiac complaints do not think patient needs urgently transferred to PCU however if anyadditional concerns arrived can transfer floors. Currently stable. Appreciate cardiology recommendations # Chronic HFrEF, paroxysmal A-fib on Eliquis, history of complete heart block s/p pacemaker placement, hypertension, hyperlipidemia/coronary artery disease status post stenting ? Follows with cardiology, last office visit in August. History of STEMI with stenting to RCA x 1 in 2019. Had multiple ED visits for presyncopal symptoms and 2022 and was found to have A-fib. Had DEBRA cardioversion done in January 2023. Continued to have presyncopal symptoms and was then found to have complete heart block s/p pacemaker placement in January 2023. Last echo in 11/2023 showed EF 35%, moderate global hypokinesis of the LV, mildly dilated RV, no significant valvular disease. Concern for home medications contributing to presentation as above. Given IV fluids and holding home meds as above. Continue home Eliquis and amiodarone. -12/01: Patient on amiodarone and Eliquis, other medications held due to low bloodpressure. Obtaining echo as above, monitor fluid status, presently does not appear overloaded -12/02: Repeat EF 35% with wall motion abnormalities that were not present previously, given this with patient's intermittent lightheaded episodes and the above cardiology consulted # Tingling in fingers and toes -12/01: Unclear etiology, this is symmetric in upper and lower extremities so do not think this is consistent with stroke, does report poor p.o. intake at home and that she will have to remind herself to eat. Will check B12, check magnesium, will start patient on thiamine and folate -12/02: This remains, unclear if there is a peripheral neuropathy, managing the above, may need further workup or monitoring on an outpatient basis if this doesnot improve Chronic medical problems and/or problems not being actively addressed during today's encounter: # History of breast cancer s/p mastectomy and chemotherapy ? Follows with oncology, last office visit in October. Currently under observation. No inpatient needs, continue outpatient follow-up. # Hypothyroidism ? TSH ordered. Continue home Synthroid. #DVT ppx: Chronically on Eliquis Marga Butcher MD Time spent in the patient's overall evaluation, decision-making process, review of diagnostic data, adjustment of management, discussion with other providers, nursing and ancillary staff involved in patient's care documentation, 58 minutes Charges/Coding Visit Charges Inpatient E&M: 01844 Subs Hosp L3 12/02/24 1735 <Electronically signed by Marga Butcher MD> Cosigner Signature (if applicable): CC: ~ Signed [facility] Work Phone: 1(647) 130-209108-02-2025 Progress note Author Marga Butcher [facility] Note Date/Time December 02, 2024 5:3 5pm [facility] Medical Records Department [address] [place] [address] Progress Note - Hospitalist 12/02/24 1721 MR#: [id number] Acct: [id number] Name: ROBERTO FERGUSON Rep #:[id number] : 1935 89 From: Marga Butcher MD PCP: Dr. Linda Mao MD Status :ADM IN Location: [facility] YL136-3 Reason for Visit Chief Complaint: Dizziness/lightheadedness with gait unsteadiness and fall at home Subjective Subjective Patient earlier in the day had been feeling better however around lunchtime had another episode of lightheadedness when she moved after doing a puzzle. She didnot have any chest pain or new shortness of breath, reports the feeling was lightheaded and not dizziness Objective Data Objective Data Vital Signs: Vital Signs Temp Pulse Resp BP Pulse Ox O2 Del Method 98.0 F 88 18 111/72 98 Room Air 12/02/24 16:49 12/02/24 16:49 12/02/24 16:49 12/02/24 16:49 12/02/24 16:49 12/02/24 16:49 Oxygen Delivery Method Room Air Weight: 50.712 kg Body Mass Index (BMI) 18.6 Intake & Output: Intake and Output for Last 24 Hours 11/30/24 12/01/24 12/02/24 23:59 23:59 23:59 Intake Total 1500 / 1500 1455.67 / 1455.67 650 / 650 Output Total 300 / 300 Balance 1500 / 1500 1155.67 / 1155.67 650 / 650 Lab / Micro Data 12/02/24 06:42 12/02/24 06:42 Labs: Laboratory Results - last 24 hr 12/02/24 06:42: WBC 2.6 L, RBC 4.15 L, Hgb 13.8, Hct 40.1, MCV 96.6, MCH 33.3 H,MCHC 34.4, RDW Std Deviation 51.0 H, RDW Coeff of Sharad 14.5, Plt Count 111 L, MPV11.5, Immature Gran % (Auto) 0.000, Neut % (Auto) 39.1 L, Lymph % (Auto) 40.7, [place] % (Auto) 17.1 H, Eos % (Auto) 2.3, Baso % (Auto) 0.8, Absolute Neuts (auto) 1.0 L, Absolute Lymphs (auto) 1.07, Nucleated RBC % 0, Sodium 139, Potassium 4.3, Chloride 107, Carbon Dioxide 22.1, Anion Gap 10, BUN 20 H, Creatinine 1.08,Estim Creat Clear Calc 28.83 L, Est GFR (MDRD) Non-Af 49 L, BUN/Creatinine Ratio18.7, Glucose 91, Calcium 8.0 Micro: Microbiology 12/01/24 10:25 Urine, Clean Catch Urine Culture - Preliminary Presumptive E. coli Radiography Diagnostic Testing: Radiology Impression Echocardiogram 12/01/24 15:00 Interpretation Summary Normal left ventricular size. Mildly increased left ventricular wall thickness. Global hypokinesis with severe mid to apical hypokinesis and normal basal anterior, anteriorlateral wall motion. Moderately reduced LVEF ; estimated ejection fraction of 35%. Abnormal septal motion secondary to paced rhythm, D-shaped septum in diastole suggestive of increased right ventricular volume. Indeterminate diastolic function. Moderately dilated left atrium Mildly dilated right atrium Mild Right ventricular dilation with preserved function. Pacemaker lead noted in the RV. Unable to estimate RV systolic pressure due to insufficient tricuspid regurgitant envelope. Ordering Physician: Marga Butcher Referring Physician: Linda Mao Performed By: Jewell Sarkar, BAHMAN, RVT Physical Exam Narrative General: Alert, oriented, no apparent distress HEENT: Atraumatic, normocephalic Eyes: Anicteric, normal conjunctiva, extraocular movements grossly intact Neck: Supple Respiratory: Clear to auscultation bilaterally, normal respiratory effort Cardiovascular: Slightly irregular GI: Soft, nontender, nondistended Extremities: No edema Musculoskeletal: Moving all extremities Neuro: No overt focal neurological deficits Skin: No rashes appreciated Psych: Cooperative Assessment & Plan Assessment/Plan (1) Dizziness: (2) Fall: PLAN: Plan #Dizziness/lightheadedness with gait unsteadiness and minor fall at home ? Admit under observation status to [facility]. PT/OT/case management consulted. Unclear etiology but symptoms do seem most consistent with presyncopal symptoms. Very low concern for stroke given numbness/tingling is reportedly present in bilateral hands and feet and no motor symptoms are noted. Home medications and dehydration would be likely contributors to presyncopal symptoms. Unable to obtain orthostatic vitals in ED as patient could not stand without significant symptoms. Given 1 L of IV fluids in the ED; will give another 1 L of fluids over several hours this evening. Hold home Lasix, Jardiance, Lopressor, Entresto and spironolactone for now. Appreciate therapy recommendations. -12/01: Blood pressure remains low 100s and high 90s despite holding Lasix, Jardiance, Lopressor, Entresto and spironolactone. Suspect patient may have been fairly hypotensive at home given her blood pressure you been off of those medications, given this is a change we will check a repeat echo to see if there are any major changes that would be contributing. Could always consider midodrine and resuming some of patient's home medications at lower doses and as tolerated. Patient to work with PT/OT. Did check UA to assess for any underlying occult infection but this was not suggestive of UTI -12/02: Patient initially felt better and orthostats were negative however had another episode of lightheadedness, EKG showed EF that is the same but did show some wall motion abnormalities. Patient has not had any chest pain or shortnessof breath, unclear significance, EKG showed a ventricularly paced rhythm with frequent atrial paced complexes. Had patient's pacemaker interrogated and it reportedly showed dyssynchrony and that some P waves were not being recognized, settings were adjusted to improve consistency and capture and that information will be given to her outpatient cardiology office who is monitoring her pacemaker. Unclear if this desynchrony may have had any bearing on these lightheaded episodes as reportedly there appeared to be some episodes and was a flutter as well, blood pressure 111/72, restarting beta-kemal at low-dose and will uptitrate as tolerated, will consult cardiology given the echo changes withlightheaded episodes suspected to be cardiac in nature, cycling troponins given the wall motion abnormalities however no current pain or active ACS suspected, unclear if she could have had an event previous or a silent [place] sometime within the last year since her last echo. Start back medications as tolerated, will place patient on MedSurg telemetry, given she is not having any active cardiac complaints do not think patient needs urgently transferred to PCU however if anyadditional concerns arrived can transfer floors. Currently stable. Appreciate cardiology recommendations # Chronic HFrEF, paroxysmal A-fib on Eliquis, history of complete heart block s/p pacemaker placement, hypertension, hyperlipidemia/coronary artery disease status post stenting ? Follows with cardiology, last office visit in August. History of STEMI with stenting to RCA x 1 in 2019. Had multiple ED visits for presyncopal symptoms and 2022 and was found to have A-fib. Had DEBRA cardioversion done in January 2023. Continued to have presyncopal symptoms and was then found to have complete heart block s/p pacemaker placement in January 2023. Last echo in 11/2023 showed EF 35%, moderate global hypokinesis of the LV, mildly dilated RV, no significant valvular disease. Concern for home medications contributing to presentation as above. Given IV fluids and holding home meds as above. Continue home Eliquis and amiodarone. -12/01: Patient on amiodarone and Eliquis, other medications held due to low bloodpressure. Obtaining echo as above, monitor fluid status, presently does not appear overloaded -12/02: Repeat EF 35% with wall motion abnormalities that were not present previously, given this with patient's intermittent lightheaded episodes and the above cardiology consulted # Tingling in fingers and toes -12/01: Unclear etiology, this is symmetric in upper and lower extremities so do not think this is consistent with stroke, does report poor p.o. intake at home and that she will have to remind herself to eat. Will check B12, check magnesium, will start patient on thiamine and folate -12/02: This remains, unclear if there is a peripheral neuropathy, managing the above, may need further workup or monitoring on an outpatient basis if this doesnot improve Chronic medical problems and/or problems not being actively addressed during today's encounter: # History of breast cancer s/p mastectomy and chemotherapy ? Follows with oncology, last office visit in October. Currently under observation. No inpatient needs, continue outpatient follow-up. # Hypothyroidism ? TSH ordered. Continue home Synthroid. #DVT ppx: Chronically on Eliquis Marga Butcher MD Time spent in the patient's overall evaluation, decision-making process, review of diagnostic data, adjustment of management, discussion with other providers, nursing and ancillary staff involved in patient's care documentation, 58 minutes Charges/Coding Visit Charges Inpatient E&M: 93178 Subs Hosp L3 12/02/24 1735 <Electronically signed by Marga Butcher MD> Cosigner Signature (if applicable): CC: ~ Signed [facility] Work Phone: 1(689) 482-496008-02-2025 Progress note [facility] Medical Records Department [address] [place] [address] Progress Note - Hospitalist 12/02/24 1721 MR#: [id number] Acct: [id number] Name: GRADYROBERTO WENDY Rep #:[id number] : 1935 89 From: Marga Butcher MD PCP: Dr. Linda Mao MD Status :ADM IN Location: [facility] IG193-3 Reason for Visit Chief Complaint: Dizziness/lightheadedness with gait unsteadiness and fall at home Subjective Subjective Patient earlier in the day had been feeling better however around lunchtime had another episode of lightheadedness when she moved after doing a puzzle. She didnot have any chest pain or new shortnessof breath, reports the feeling was lightheaded and not dizziness Objective Data Objective Data Vital Signs: Vital Signs Temp Pulse Resp BP Pulse Ox O2 Del Method 98.0 F 88 18 111/72 98 Room Air 12/02/24 16:49 12/02/24 16:49 12/02/24 16:49 12/02/24 16:49 12/02/24 16:49 12/02/24 16:49 Oxygen Delivery Method Room Air Weight: 50.712 kg Body Mass Index (BMI) 18.6 Intake & Output: Intake and Output for Last 24 Hours 11/30/24 12/01/24 12/02/24 23:59 23:59 23:59 Intake Total 1500 / 1500 1455.67 / 1455.67 650 / 650 Output Total 300 / 300 Balance 1500 / 1500 1155.67 / 1155.67 650 / 650 Lab / Micro Data 12/02/24 06:42 12/02/24 06:42 Labs: Laboratory Results - last 24 hr 12/02/24 06:42: WBC 2.6 L, RBC 4.15 L, Hgb 13.8, Hct 40.1, MCV 96.6, MCH 33.3 H,MCHC 34.4, RDW Std Deviation 51.0 H, RDW Coeff of Sharad 14.5, Plt Count 111 L, MPV11.5, Immature Gran % (Auto) 0.000, Neut % (Auto) 39.1 L, Lymph % (Auto) 40.7, [place] % (Auto) 17.1 H, Eos % (Auto) 2.3, Baso % (Auto) 0.8, Absolute Neuts (auto) 1.0 L, Absolute Lymphs (auto) 1.07, Nucleated RBC % 0, Sodium 139, Potassium 4.3, Chloride 107, Carbon Dioxide 22.1, Anion Gap 10, BUN 20 H, Creatinine 1.08,Estim Creat Clear Calc28.83 L, Est GFR (MDRD) Non-Af 49 L, BUN/Creatinine Ratio18.7, Glucose 91, Calcium 8.0 Micro: Microbiology 12/01/24 10:25 Urine, Clean Catch Urine Culture - Preliminary Presumptive E. coli Radiography Diagnostic Testing: Radiology Impression Echocardiogram 12/01/24 15:00 Interpretation Summary Normal left ventricular size. Mildly increased left ventricular wall thickness. Global hypokinesis with severe mid to apical hypokinesis and normal basal anterior, anteriorlateral wall motion. Moderately reduced LVEF ; estimated ejection fraction of 35%. Abnormal septal motion secondary to paced rhythm, D-shaped septum in diastole suggestive of increased right ventricular volume. Indeterminate diastolic function. Moderately dilated left atrium Mildly dilated right atrium Mild Right ventricular dilation with preserved function. Pacemaker lead noted in the RV. Unable to estimate RV systolic pressure due to insufficient tricuspid regurgitant envelope. Ordering Physician: Marga Butcher Referring Physician: Linda Mao Performed By: Jewell Sarkar RDCS, RVT Physical Exam Narrative General: Alert, oriented, no apparent distress HEENT: Atraumatic, normocephalic Eyes: Anicteric, normal conjunctiva, extraocular movements grossly intact Neck: Supple Respiratory: Clear to auscultation bilaterally, normal respiratory effort Cardiovascular: Slightly irregular GI: Soft, nontender, nondistended Extremities: No edema Musculoskeletal: Moving all extremities Neuro: No overt focal neurological deficits Skin: No rashes appreciated Psych: Cooperative Assessment & Plan Assessment/Plan (1) Dizziness: (2) Fall: PLAN: Plan #Dizziness/lightheadedness with gait unsteadiness and minor fall at home ? Admit under observation status to [facility]. PT/OT/case management consulted. Unclear etiology but symptoms do seem most consistent with presyncopal symptoms. Very low concern for stroke given numbness/tingling is reportedly present in bilateral hands and feet and no motor symptoms are noted. Home medications and dehydration would be likely contributors to presyncopal symptoms. Unable to obtain orthostatic vitals in ED as patient could not stand without significant symptoms. Given 1 L of IV fluids in the ED; will give another 1 L of fluids over several hours this evening. Hold home Lasix, Jardiance, Lopressor, Entresto and spironolactone for now. Appreciate therapy recommendations. -12/01: Blood pressure remains low 100s and high 90s despite holding Lasix, Jardiance, Lopressor, Entresto and spironolactone. Suspect patient may have been fairly hypotensive at home given her blood pressure you been off of those medications, given this is a change we will check a repeat echo to seeif there are any major changes that would be contributing. Could always consider midodrine and resuming some of patient's home medications at lower doses and as tolerated. Patient to work with PT/OT.Did check UA to assess for any underlying occult infection but this was not suggestive of UTI -12/02: Patient initially felt better and orthostats were negative however had another episode of lightheadedness, EKG showed EF that is the same but did show some wall motion abnormalities. Patient has not had any chest pain or shortnessof breath, unclear significance, EKG showed a ventricularly paced rhythm with frequent atrial paced complexes. Had patient's pacemaker interrogated and it reportedly showed dyssynchrony and that some P waves were not being recognized, settings were adjusted to improve consistency and capture and that information will be given to her outpatient cardiology officewho is monitoring her pacemaker. Unclear if this desynchrony may have had any bearing on these lightheaded episodes as reportedly there appeared to be some episodes and was a flutter as well, blood pressure 111/72, restarting beta-kemal at low-dose and will uptitrate as tolerated, will consult cardiology given the echo changes withlightheaded episodes suspected to be cardiac in nature, cycling t roponins given the wall motion abnormalities however no current pain or active ACS suspected, unclear if she could have had an event previous or a silent [place] sometime within the last year since her last echo. Start back medications as tolerated, will place patient on MedSurg telemetry, given she is not having any active cardiac complaints do not think patient needs urgently transferred to PCU however if anyadditional concerns arrived can transfer floors. Currently stable. Appreciate cardiology recommendations # Chronic HFrEF, paroxysmal A-fib on Eliquis, history of complete heart block s/p pacemaker placement, hypertension, hyperlipidemia/coronary artery disease status post stenting ? Follows with cardiology, last office visit in August. History of STEMI with stenting to RCA x 1 in 2019. Had multiple ED visits for presyncopal symptoms and 2022 and was found to have A-fib. Had DEBRA cardioversion done in January 2023. Continued to have presyncopal symptoms and was then found to have complete heart block s/p pacemaker placement in January 2023. Last echo in 11/2023 showed EF 35%, moderate global hypokinesis of the LV, mildly dilated RV, no significant valvular disease. Concern for home medications contributing to presentation as above. Given IV fluids and holding home meds as above. Continue home Eliquis and amiodarone. -12/01: Patient on amiodarone and Eliquis, other medications held due to low bloodpressure. Obtainingecho as above, monitor fluid status, presently does not appear overloaded -12/02: Repeat EF 35% with wall motion abnormalities that were not present previously, given this with patient's intermittent lightheaded episodes and the above cardiology consulted # Tingling in fingers and toes -12/01: Unclear etiology, this is symmetric in upper and lower extremities so do not think this is consistent with stroke, does report poor p.o. intake at home and that she will have to remind herself to eat. Will check B12, check magnesium, will start patient on thiamine and folate -12/02: This remains, unclear if there is a peripheral neuropathy, managing the above, may need further workup or monitoring on an outpatient basis if this doesnot improve Chronic medical problems and/or problems not being actively addressed during today's encounter: # History of breast cancer s/p mastectomy and chemotherapy ? Follows with oncology, last office visit in October. Currently under observation. No inpatient needs, continue outpatient follow-up. # Hypothyroidism ? TSH ordered. Continue home Synthroid. #DVT ppx: Chronically on Eliquis Marga Butcher MD Time spent in the patient's overall evaluation, decision-making process, review of diagnostic data,adjustment of management, discussion with other providers, nursing and ancillary staff involved in patient's care documentation, 58 minutes Charges/Coding Visit Charges Inpatient E&M: 64955 Subs Hosp L3 12/02/24 1635 Cosigner Signature (if applicable): CC: ~ Signed [facility]08-01-2025 Progress note Author Marga Butcher [facility] Note Date/Time December 01, 2024 4:1 6pm [facility] Medical Records Department [address] [place] [address] Progress Note - Hospitalist 12/01/24 0362 MR#: [id number] Acct: [id number] Name: ROBERTO FERGUSON Rep #:[id number] : 1935 89 From: Marga Butcher MD PCP: Dr. Linda Mao MD Status :ADM PATRICIA Location: MS3 BI539-0 Reason for Visit Chief Complaint: Dizziness/lightheadedness with gait unsteadiness and fall at home Subjective Subjective Patient evaluated at bedside, has not been up moving around much yet, did get upto go to the bathroom he reports she feels better than she did but still does not feel quite right, also notes some numbness and tingling in her fingertips and toes but this is bilateral and upper and lower extremities. Reports she eats very poorly at home and often has to remind herself to eat. Denies any chest pain or shortness of breath Objective Data Objective Data Vital Signs: Vital Signs Temp Pulse Resp BP Pulse Ox O2 Del Method 98.0 F 60 14 97/60 98 Room Air 12/01/24 10:12/01/24 10:55 12/01/24 10:09 12/01/24 10:12/01/24 10:09 12/01/24 10:55 Oxygen Delivery Method Room Air Weight: 50.712 kg Body Mass Index (BMI) 18.6 Intake & Output: Intake and Output for Last 24 Hours 11/29/24 11/30/24 12/01/24 23:59 23:59 23:59 Intake Total 1500 / 1500 1351.67 / 1351.67 Output Total 300 / 300 Balance 1500 / 1500 1051.67 / 1051.67 Lab / Micro Data 12/01/24 05:18 12/01/24 05:18 Labs: Laboratory Results - last 24 hr 11/30/24 13:28: TSH 2.500 12/01/24 05:18: WBC 2.6 L, RBC 4.02 L, Hgb 13.4, Hct 38.8, MCV 96.5, MCH 33.3 H,MCHC 34.5, RDW Std Deviation 51.0 H, RDW Coeff of Sharad 14.3, Plt Count 101 L, MPV11.1, Sodium 138, Potassium 3.8, Chloride 106, Carbon Dioxide 23.5, Anion Gap 9,BUN 24 H, Creatinine 1.16, Estim Creat Clear Calc 26.84 L, Est GFR (MDRD) Non-Af45 L, BUN/Creatinine Ratio 20.4 H, Glucose 88, Calcium 8.1 12/01/24 10:25: Urine Color Yellow, Urine Clarity Sl. Cloudy, Urine pH 7.0, Ur Specific Interior 1.010, Urine Protein 15 H, Urine Glucose (UA) 1000 H, Urine Ketones Negative, Urine Occult Blood Negative, Urine Nitrite Negative, Urine Bilirubin Negative, Urine Urobilinogen Normal, Ur Leukocyte Esterase 25 H, UrineRBC 0 SEEN, Urine WBC 0-5 SEEN, Ur Squamous Epith Cells 0-5 SEEN, Urine Bacteria0 SEEN, Urine Mucus 0 SEEN Physical Exam Narrative General: Alert, oriented, no apparent distress HEENT: Atraumatic, normocephalic Eyes: Anicteric, normal conjunctiva, extraocular movements grossly intact Neck: Supple Respiratory: Clear to auscultation bilaterally, normal respiratory effort Cardiovascular: Regular rate and rhythm GI: Soft, nontender, nondistended Extremities: No edema Musculoskeletal: Moving all extremities Neuro: No overt focal neurological deficits Skin: No rashes appreciated Psych: Cooperative Assessment & Plan Assessment/Plan (1) Dizziness: (2) Fall: PLAN: Plan #Dizziness/lightheadedness with gait unsteadiness and minor fall at home ? Admit under observation status to [facility]. PT/OT/case management consulted. Unclear etiology but symptoms do seem most consistent with presyncopal symptoms. Very low concern for stroke given numbness/tingling is reportedly present in bilateral hands and feet and no motor symptoms are noted. Home medications and dehydration would be likely contributors to presyncopal symptoms. Unable to obtain orthostatic vitals in ED as patient could not stand without significant symptoms. Given 1 L of IV fluids in the ED; will give another 1 L of fluids over several hours this evening. Hold home Lasix, Jardiance, Lopressor, Entresto and spironolactone for now. Appreciate therapy recommendations. -12/01: Blood pressure remains low 100s and high 90s despite holding Lasix, Jardiance, Lopressor, Entresto and spironolactone. Suspect patient may have been fairly hypotensive at home given her blood pressure you been off of those medications, given this is a change we will check a repeat echo to see if there are any major changes that would be contributing. Could always consider midodrine and resuming some of patient's home medications at lower doses and as tolerated. Patient to work with PT/OT. Did check UA to assess for any underlying occult infection but this was not suggestive of UTI # Chronic HFrEF, paroxysmal A-fib on Eliquis, history of complete heart block s/p pacemaker placement, hypertension, hyperlipidemia/coronary artery disease status post stenting ? Follows with cardiology, last office visit in August. History of STEMI with stenting to RCA x 1 in 2019. Had multiple ED visits for presyncopal symptoms and 2022 and was found to have A-fib. Had DEBRA cardioversion done in January 2023. Continued to have presyncopal symptoms and was then found to have complete heart block s/p pacemaker placement in January 2023. Last echo in 11/2023 showed EF 35%, moderate global hypokinesis of the LV, mildly dilated RV, no significant valvular disease. Concern for home medications contributing to presentation as above. Given IV fluids and holding home meds as above. Continue home Eliquis and amiodarone. -12/01: Patient on amiodarone and Eliquis, other medications held due to low bloodpressure. Obtaining echo as above, monitor fluid status, presently does not appear overloaded # Tingling in fingers and toes -12/01: Unclear etiology, this is symmetric in upper and lower extremities so do not think this is consistent with stroke, does report poor p.o. intake at home and that she will have to remind herself to eat. Will check B12, check magnesium, will start patient on thiamine and folate Chronic medical problems and/or problems not being actively addressed during today's encounter: # History of breast cancer s/p mastectomy and chemotherapy ? Follows with oncology, last office visit in October. Currently under observation. No inpatient needs, continue outpatient follow-up. # Hypothyroidism ? TSH ordered. Continue home Synthroid. #DVT ppx: Chronically on Eliquis Marga Butcher MD Time spent in the patient's overall evaluation, decision-making process, review of diagnostic data, adjustment of management, discussion with other providers, nursing and ancillary staff involved in patient's care documentation, 37 minutes Charges/Coding Visit Charges Inpatient E&M: 29749 Subs Hosp L2 12/01/24 1616 <Electronically signed by Marga Butcher MD> Cosigner Signature (if applicable): CC: ~ Signed [facility] Work Phone: 1(617) 476-757708-01-2025 Progress note Author Marga Butcher [facility] Note Date/Time December 01, 2024 4:1 6pm [facility] Medical Records Department [address] [place] [address] Progress Note - Hospitalist 12/01/24 3749 MR#: [id number] Acct: [id number] Name: ROBERTO FERGUSON Rep #:[id number] : 1935 89 From: Marga Butcher MD PCP: Dr. Linda Mao MD Status :ADM PATRICIA Location: [place] [address] Reason for Visit Chief Complaint: Dizziness/lightheadedness with gait unsteadiness and fall at home Subjective Subjective Patient evaluated at bedside, has not been up moving around much yet, did get upto go to the bathroom he reports she feels better than she did but still does not feel quite right, also notes some numbness and tingling in her fingertips and toes but this is bilateral and upper and lower extremities. Reports she eats very poorly at home and often has to remind herself to eat. Denies any chest pain or shortness of breath Objective Data Objective Data Vital Signs: Vital Signs Temp Pulse Resp BP Pulse Ox O2 Del Method 98.0 F 60 14 97/60 98 Room Air 12/01/24 10:12/01/24 10:55 12/01/24 10:12/01/24 10:12/01/24 10:12/01/24 10:55 Oxygen Delivery Method Room Air Weight: 50.712 kg Body Mass Index (BMI) 18.6 Intake & Output: Intake and Output for Last 24 Hours 11/29/24 11/30/24 12/01/24 23:59 23:59 23:59 Intake Total 1500 / 1500 1351.67 / 1351.67 Output Total 300 / 300 Balance 1500 / 1500 1051.67 / 1051.67 Lab / Micro Data 12/01/24 05:18 12/01/24 05:18 Labs: Laboratory Results - last 24 hr 11/30/24 13:28: TSH 2.500 12/01/24 05:18: WBC 2.6 L, RBC 4.02 L, Hgb 13.4, Hct 38.8, MCV 96.5, MCH 33.3 H,MCHC 34.5, RDW Std Deviation 51.0 H, RDW Coeff of Sharad 14.3, Plt Count 101 L, MPV11.1, Sodium 138, Potassium 3.8, Chloride 106, Carbon Dioxide 23.5, Anion Gap 9,BUN 24 H, Creatinine 1.16, Estim Creat Clear Calc 26.84 L, Est GFR (MDRD) Non-Af45 L, BUN/Creatinine Ratio 20.4 H, Glucose 88, Calcium 8.1 12/01/24 10:25: Urine Color Yellow, Urine Clarity Sl. Cloudy, Urine pH 7.0, Ur Specific Interior 1.010, Urine Protein 15 H, Urine Glucose (UA) 1000 H, Urine Ketones Negative, Urine Occult Blood Negative, Urine Nitrite Negative, Urine Bilirubin Negative, Urine Urobilinogen Normal, Ur Leukocyte Esterase 25 H, UrineRBC 0 SEEN, Urine WBC 0-5 SEEN, Ur Squamous Epith Cells 0-5 SEEN, Urine Bacteria0 SEEN, Urine Mucus 0 SEEN Physical Exam Narrative General: Alert, oriented, no apparent distress HEENT: Atraumatic, normocephalic Eyes: Anicteric, normal conjunctiva, extraocular movements grossly intact Neck: Supple Respiratory: Clear to auscultation bilaterally, normal respiratory effort Cardiovascular: Regular rate and rhythm GI: Soft, nontender, nondistended Extremities: No edema Musculoskeletal: Moving all extremities Neuro: No overt focal neurological deficits Skin: No rashes appreciated Psych: Cooperative Assessment & Plan Assessment/Plan (1) Dizziness: (2) Fall: PLAN: Plan #Dizziness/lightheadedness with gait unsteadiness and minor fall at home ? Admit under observation status to [facility]. PT/OT/case management consulted. Unclear etiology but symptoms do seem most consistent with presyncopal symptoms. Very low concern for stroke given numbness/tingling is reportedly present in bilateral hands and feet and no motor symptoms are noted. Home medications and dehydration would be likely contributors to presyncopal symptoms. Unable to obtain orthostatic vitals in ED as patient could not stand without significant symptoms. Given 1 L of IV fluids in the ED; will give another 1 L of fluids over several hours this evening. Hold home Lasix, Jardiance, Lopressor, Entresto and spironolactone for now. Appreciate therapy recommendations. -12/01: Blood pressure remains low 100s and high 90s despite holding Lasix, Jardiance, Lopressor, Entresto and spironolactone. Suspect patient may have been fairly hypotensive at home given her blood pressure you been off of those medications, given this is a change we will check a repeat echo to see if there are any major changes that would be contributing. Could always consider midodrine and resuming some of patient's home medications at lower doses and as tolerated. Patient to work with PT/OT. Did check UA to assess for any underlying occult infection but this was not suggestive of UTI # Chronic HFrEF, paroxysmal A-fib on Eliquis, history of complete heart block s/p pacemaker placement, hypertension, hyperlipidemia/coronary artery disease status post stenting ? Follows with cardiology, last office visit in August. History of STEMI with stenting to RCA x 1 in 2019. Had multiple ED visits for presyncopal symptoms and 2022 and was found to have A-fib. Had DEBRA cardioversion done in January 2023. Continued to have presyncopal symptoms and was then found to have complete heart block s/p pacemaker placement in January 2023. Last echo in 11/2023 showed EF 35%, moderate global hypokinesis of the LV, mildly dilated RV, no significant valvular disease. Concern for home medications contributing to presentation as above. Given IV fluids and holding home meds as above. Continue home Eliquis and amiodarone. -12/01: Patient on amiodarone and Eliquis, other medications held due to low bloodpressure. Obtaining echo as above, monitor fluid status, presently does not appear overloaded # Tingling in fingers and toes -12/01: Unclear etiology, this is symmetric in upper and lower extremities so do not think this is consistent with stroke, does report poor p.o. intake at home and that she will have to remind herself to eat. Will check B12, check magnesium, will start patient on thiamine and folate Chronic medical problems and/or problems not being actively addressed during today's encounter: # History of breast cancer s/p mastectomy and chemotherapy ? Follows with oncology, last office visit in October. Currently under observation. No inpatient needs, continue outpatient follow-up. # Hypothyroidism ? TSH ordered. Continue home Synthroid. #DVT ppx: Chronically on Eliquis Marga Butcher MD Time spent in the patient's overall evaluation, decision-making process, review of diagnostic data, adjustment of management, discussion with other providers, nursing and ancillary staff involved in patient's care documentation, 37 minutes Charges/Coding Visit Charges Inpatient E&M: 85688 Subs Hosp L2 12/01/24 1616 <Electronically signed by Marga Butcher MD> Cosigner Signature (if applicable): CC: ~ Signed [facility] Work Phone: 1(468) 394-117308-01-2025 Progress note [facility] Medical Records Department [address] [place] [address] Progress Note - Hospitalist 12/01/24 3624 MR#: [id number] Acct: [id number] Name: ROBERTO FERGUSON Rep #:[id number] : 1935 89 From: Marga Butcher MD PCP: Dr. Linda Mao MD Status :ADM PATRICIA Location: [facility] GD305-0 Reason for Visit Chief Complaint: Dizziness/lightheadedness with gait unsteadiness and fall at home Subjective Subjective Patient evaluated at bedside, has not been up moving around much yet, did get upto go to the bathroom he reports she feels better than she did but still does not feel quite right, also notes some numbness and tingling in her fingertips and toes but this is bilateral and upper and lower extremities.Reports she eats very poorly at home and often has to remind herself to eat. Denies any chest pain or shortness of breath Objective Data Objective Data Vital Signs: Vital Signs Temp Pulse Resp BP Pulse Ox O2 Del Method 98.0 F 60 14 97/60 98 Room Air 12/01/24 10:09 12/01/24 10:55 12/01/24 10:12/01/24 10:09 12/01/24 10:09 12/01/24 10:55 Oxygen Delivery Method Room Air Weight: 50.712 kg Body Mass Index (BMI) 18.6 Intake & Output: Intake and Output for Last 24 Hours 11/29/24 11/30/24 12/01/24 23:59 23:59 23:59 Intake Total 1500 / 1500 1351.67 / 1351.67 Output Total 300 / 300 Balance 1500 / 1500 1051.67 / 1051.67 Lab / Micro Data 12/01/24 05:18 12/01/24 05:18 Labs: Laboratory Results - last 24 hr 11/30/24 13:28: TSH 2.500 12/01/24 05:18: WBC 2.6 L, RBC 4.02 L, Hgb 13.4, Hct 38.8, MCV 96.5, MCH 33.3 H,MCHC 34.5, RDW Std Deviation 51.0 H, RDW Coeff of Sharad 14.3, Plt Count 101 L, MPV11.1, Sodium 138, Potassium 3.8, Chloride 106, Carbon Dioxide 23.5, Anion Gap 9,BUN 24 H, Creatinine 1.16, Estim Creat Clear Calc 26.84 L, Est GFR (MDRD) Non- Af45 L, BUN/Creatinine Ratio 20.4 H, Glucose 88, Calcium 8.1 12/01/24 10:25: Urine Color Yellow, Urine Clarity Sl. Cloudy, Urine pH 7.0, Ur Specific Interior 1.010, Urine Protein 15 H, Urine Glucose (UA) 1000 H, Urine Ketones Negative, Urine Occult Blood Negative, Urine Nitrite Negative, Urine Bilirubin Negative, Urine Urobilinogen Normal, Ur Leukocyte Esterase 25 H, UrineRBC 0 SEEN, Urine WBC 0-5 SEEN, Ur Squamous Epith Cells 0-5 SEEN, Urine Bacteria0 SEEN, Urine Mucus 0 SEEN Physical Exam Narrative General: Alert, oriented, no apparent distress HEENT: Atraumatic, normocephalic Eyes: Anicteric, normal conjunctiva, extraocular movements grossly intact Neck: Supple Respiratory: Clear to auscultation bilaterally, normal respiratory effort Cardiovascular: Regular rate and rhythm GI: Soft, nontender, nondistended Extremities: No edema Musculoskeletal: Moving all extremities Neuro: No overt focal neurological deficits Skin: No rashes appreciated Psych: Cooperative Assessment & Plan Assessment/Plan (1) Dizziness: (2) Fall: PLAN: Plan #Dizziness/lightheadedness with gait unsteadiness and minor fall at home ? Admit under observation status to [facility]. PT/OT/case management consulted. Unclear etiology but symptoms do seem most consistent with presyncopal symptoms. Very low concern for stroke given numbness/tingling is reportedly present in bilateral hands and feet and no motor symptoms are noted. Home medications and dehydration would be likely contributors to presyncopal symptoms. Unable to obtain orthostatic vitals in ED as patient could not stand without significant symptoms. Given 1 L of IV fluids in the ED; will give another 1 L of fluids over several hours this evening. Hold home Lasix, Jardiance, Lopressor, Entresto and spironolactone for now. Appreciate therapy recommendations. -12/01: Blood pressure remains low 100s and high 90s despite holding Lasix, Jardiance, Lopressor, Entresto and spironolactone. Suspect patient may have been fairly hypotensive at home given her blood pressure you been off of those medications, given this is a change we will check a repeat echo to seeif there are any major changes that would be contributing. Could always consider midodrine and resuming some of patient's home medications at lower doses and as tolerated. Patient to work with PT/OT.Did check UA to assess for any underlying occult infection but this was not suggestive of UTI # Chronic HFrEF, paroxysmal A-fib on Eliquis, history of complete heart block s/p pacemaker placement, hypertension, hyperlipidemia/coronary artery disease status post stenting ? Follows with cardiology, last office visit in August. History of STEMI with stenting to RCA x 1 in 2019. Had multiple ED visits for presyncopal symptoms and 2022 and was found to have A-fib. Had DEBRA cardioversion done in January 2023. Continued to have presyncopal symptoms and was then found to have complete heart block s/p pacemaker placement in January 2023. Last echo in 11/2023 showed EF 35%, moderate global hypokinesis of the LV, mildly dilated RV, no significant valvular disease. Concern for home medications contributing to presentation as above. Given IV fluids and holding home meds as above. Continue home Eliquis and amiodarone. -12/01: Patient on amiodarone and Eliquis, other medications held due to low bloodpressure. Obtainingecho as above, monitor fluid status, presently does not appear overloaded # Tingling in fingers and toes -12/01: Unclear etiology, this is symmetric in upper and lower extremities so do not think this is consistent with stroke, does report poor p.o. intake at home and that she will have to remind herself to eat. Will check B12, check magnesium, will start patient on thiamine and folate Chronic medical problems and/or problems not being actively addressed during today's encounter: # History of breast cancer s/p mastectomy and chemotherapy ? Follows with oncology, last office visit in October. Currently under observation. No inpatient needs, continue outpatient follow-up. # Hypothyroidism ? TSH ordered. Continue home Synthroid. #DVT ppx: Chronically on Eliquis Marga Butcher MD Time spent in the patient's overall evaluation, decision-making process, review of diagnostic data,adjustment of management, discussion with other providers, nursing and ancillary staff involved in patient's care documentation, 37 minutes Charges/Coding Visit Charges Inpatient E&M: 66208 Subs Hosp L2 12/01/24 1616 Cosigner Signature (if applicable): CC: ~ Signed [facility]08-01-2025 History and physical note Author Sean Thornton [facility] Note Date/Time November 30, 2024 10:2 5pm [facility] Medical Records Department [address] [place] [address] H&P Exam - Hospitalist 11/30/24 1413 MR#: [id number] Acct: [id number] Name: ROBERTO FERGUSON Rep #:[id number] : 1935 89 From: Sean ramírez DO PCP: Dr. Linda Mao MD Status :ADM PATRICIA Location: [place] [address] HPI - General General Date of Admission: 11/30/24 Date of Service: 11/30/24 Chief Complaint: Dizziness/lightheadedness with gait unsteadiness and fall at home HPI Narrative ROBERTO FERGUSON, is a 89 F who presented to [facility] ED on 11/30/2024 with dizziness/lightheadedness with gait unsteadiness and fall at home. Patient lives at home alone, has fairly good functional status at baseline. Daughter lives nearby. 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 Patient notes that she got up around 5 AM this morning to use the bathroom and felt lightheaded and dizzy leading to a fall onto her elbow. She did reportedlyhit her head as well. She was able to crawl over to the sofa and went back to bed for a period of time, but when she got up around 9 AM she continued to have lightheadedness with dizziness when trying to stand and ambulate, so she called her daughter and came in for further evaluation. In the ED she was mildly hypertensive to the 100s over 40s, in paced rhythm at 60 bpm and stable on room air at rest. CBC and BMP were benign. CT brain and cervical spine were unremarkable. Chest x-ray showed blunting of the right costophrenic angle with small right pleural effusion and bibasilar atelectasis, similar to previous. They attempted to ambulate the patient in the ED but she continued to have significant lightheadedness and dizziness despite being given a dose of meclizine, so hospitalist was contacted for admission. I saw the patient at bedside in the ED, daughter was present. Patient was sitting back comfortably in bed, conversing normally, in no acute distress. She reported no presyncopal symptoms while sitting. Notes that she does have presyncopal symptoms often when going from sitting to standing, but her symptoms today have been much worsethan her normal and have appeared to be accompanied by vertigo. She has no history of vertigo. She also reports numbness/tingling of both of her hands andfeet which is new for her. Notes that she was in her normal state of health yesterday. No other acute concerns currently. Will be admitted for further management. [facility] Medical History (Updated 11/30/24 @ 16:13 by Rody Faustin) Anxiety Depression Hypothyroidism Non-smoker Atrial fibrillation Congestive heart failure (CHF) Pacemaker Myocardial infarct Shingles Atrial tachycardia Presence of permanent cardiac pacemaker CKD (chronic kidney disease) stage 3, GFR 30-59 ml/min Non-rheumatic mitral regurgitation Mitral valve insufficiency Rheumatoid arthritis STEMI (ST elevation myocardial infarction) Atherosclerosis of coronary artery of the [place] heart without angina pectoris History of coronary [...] Medications ?Medication ?Instructions ?Recorded ?Last Taken ?Type acetaminophen 500 mg tablet 1,000 mg PO BID pain 04/1205/16/20 History levothyroxine 75 mcg tablet 100 mcg PO DAILY thyroid 1 06/07/22 05/07/23 History calcium carbonate 1,000 mg PO DAILY@0800 PRN 1 06/08/22 11/29/24 History indigestion dapagliflozin propanediol 10 mg 10 mg PO QAM #90 tabs 02/01/24 11/29/24 Rx tablet (Farxiga) metoprolol tartrate 50 mg tablet 50 mg PO BID #180 tab s 05/01/24 Unknown Rx amiodarone 200 mg tablet 200 mg PO DAILY #90 tabs 11/29/24 Rx spironolactone 25 mg tablet 25 mg PO QAM #90 tabs 06/0311/29/24 Rx furosemide 40 mg tablet 40 mg PO QDAY #30 tabs 07/2611/29/24 Rx apixaban 2.5 mg tablet 2.5 mg PO BID #180 tabs 08/3111/29/24 Rx mirtazapine 30 mg tablet 45 mg PO DAILY 09/12/2411/02 History sacubitril 24 mg-valsartan 26 mg 1 tab PO BID #180 tab s 09/12/24 11/29/24 Rx tablet (Entresto) Allergy/AdvReac Type Severity Reaction Status Date / Time ticagrelor (From Brilinta) AdvReac Severe Severe Verified 11/30/24 10:43 dyspnea on exertion Family History Father Clotting [...] type: does not use caffeine: Yes ROS Constitutional Constitutional: Denies chills, fatigue, fever(s) or weakness Eyes Eyes: Denies change in vision Cardiovascular Cardiovascular: Denies chest pain Respiratory/Chest Respiratory/Chest: Denies cough, shortness of breath at rest or shortness of breath with exertion Gastrointestinal Gastrointestinal: Denies abdominal pain Musculoskeletal Musculoskeletal: Denies arthralgias or myalgias Neurologic Neurologic: Reports disequilibrium, dizziness and numbness; Denies abnormal speech, confusion, focal weakness, headache(s) or tingling Vital Signs Vital Signs Vital Signs: 11/30/24 10:38 11/30/24 10:44 11/30/24 11:15 Temperature 97.3 F L Temperature Source Axillary Pulse Rate 61 60 Respiratory Rate 16 17 Respiratory Effort Normal Respiratory Depth Normal Respiratory Pattern Normal Blood Pressure 121/51 H 107/46 L Blood Pressure Mean 74 66 Pulse Ox 94 100 Oxygen Delivery Method Room Air Room Air Room Air 11/30/24 11:30 11/30/24 12:00 11/30/24 12:30 Temperature Temperature Source Pulse Rate 60 60 60 Respiratory Rate 18 16 18 Respiratory Effort Respiratory Depth Respiratory Pattern Blood Pressure 111/53 L 107/54 L 106/48 L Blood Pressure Mean 72 71 67 Pulse Ox 100 100 100 Oxygen Delivery Method Room Air Room Air Room Air 11/30/24 13:00 11/30/24 13:30 Temperature Temperature Source Pulse Rate 60 60 Respiratory Rate 25 H 18 Respiratory Effort Respiratory Depth Respiratory Pattern Blood Pressure 113/47 L 106/58 L Blood Pressure Mean 69 74 Pulse Ox 97 100 Oxygen Delivery Method Room Air Room Air Weight Weight: 51.4 kg Body Mass Index (BMI) 18.8 Physical Exam Const alert, oriented x3 and no apparent distress Constitutional Narrative: Elderly female, appears younger than stated age, thin appearing, mildly fatiguedappearing but otherwise sitting back comfortably in bed, conversing normally, inno acute distress. General Appearance: cooperative and comfortable HEENT normocephalic, head/scalp atraumatic, hearing grossly normal bilaterally, nasal mucous membranes and turbinates normal and moist oral mucous membranes Eyes PERRL, EOMs intact bilaterally and conjunctivae normal Neck full ROM Chest inspection of chest normal Resp normal respiratory effort, normal air movement, no use of accessory muscles and clear to auscultation bilaterally Resp Narrative: Breathing comfortably on room air at rest. Mildly diminished breath sounds in bilateral lung bases, no wheezing or crackles noted. Cardio regular rate, regular rhythm, no murmurs and peripheral pulses 2+ throughout GI normal to inspection, nondistended, normoactive bowel sounds, soft to palpation,non-tender and non-distended Back/Spine normal ROM Extremity normal to inspection, full ROM and no pedal edema Skin no rashes or lesions noted Neuro moves all extremities and no focal motor deficits Coordination / Balance: [id number] test normal Speech: speech normal Motor Exam: strength 5/5 throughout Psych mental status grossly normal Results Lab / Micro Data 11/30/24 10:49 11/30/24 13:28 Labs: Laboratory Results - last 24 hr 11/30/24 10:49: WBC 4.0 L, RBC 4.75, Hgb 15.6 H, Hct 45.8, MCV 96.4, MCH 32.8 H,MCHC 34.1, RDW Std Deviation 51.2 H, RDW Coeff of Sharad 14.5, Plt Count 124 L, MPV12.0, Immature Gran % (Auto) 0.300, Neut % (Auto) 52.8, Lymph % (Auto) 27.5, [place] % (Auto) 17.9 H, Eos % (Auto) 1.0, Baso % (Auto) 0.5, Absolute Neuts (auto) 2.1, Absolute Lymphs (auto) 1.09, Nucleated RBC % 0, Sodium Cancelled, PotassiumCancelled, Chloride Cancelled, Carbon Dioxide Cancelled, Anion Gap Cancelled, BUN Cancelled, Creatinine Cancelled, Estim Creat Clear Calc Cancelled, Est GFR (MDRD) Non-Af Cancelled, BUN/Creatinine Ratio Cancelled, Glucose Cancelled, Calcium Cancelled, Total Bilirubin Cancelled, AST Cancelled, ALT Cancelled, Alkaline Phosphatase Cancelled, Total Protein Cancelled, Albumin Cancelled, Globulin Cancelled, Albumin/Globulin Ratio Cancelled 11/30/24 12:27: Sodium Cancelled, Potassium Cancelled, Chloride Cancelled, Carbon Dioxide Cancelled, Anion Gap Cancelled, BUN Cancelled, Creatinine Cancelled, Estim Creat Clear Calc Cancelled, Est GFR (MDRD) Non-Af Cancelled, BUN/Creatinine Ratio Cancelled, Glucose Cancelled, Calcium Cancelled, Total Bilirubin Cancelled, AST Cancelled, ALT Cancelled, Alkaline Phosphatase Cancelled, Total Protein Cancelled, Albumin Cancelled, Globulin Cancelled, Albumin/Globulin Ratio Cancelled 11/30/24 13:28: Sodium 139, Potassium 4.1, Chloride 104, Carbon Dioxide 22.4, Anion Gap 13, BUN 26 H, Creatinine 1.15, Estim Creat Clear Calc 27.44 L, Est GFR(MDRD) Non-Af 46 L, BUN/Creatinine Ratio 22.7 H, Glucose 105 H, Calcium 8.7, Total Bilirubin 0.65, AST 23, ALT 22, Alkaline Phosphatase 45, Total Protein 5.7L, Albumin 3.5, Globulin 2.2, Albumin/Globulin Ratio 1.5 Imaging Radiology Impression Chest X-Ray 11/30/24 10:56 IMPRESSION: Hyperinflation. Blunting of the right costophrenic angle with small right pleural effusion and bibasilar atelectasis. Reading Location: [id number] Brain CT 11/30/24 11:07 IMPRESSION: CHRONIC CHANGES. NO ACUTE FINDINGS. Reading Location: [id number] Cervical Spine CT 11/30/24 11:07 IMPRESSION: Multilevel degenerative changes with facet joint osteoarthritis and hypertrophy as described. Stable anterior subluxation/listhesis of C4 on C5 and C5 on C6. Stable soft tissue density in the anterior aspect of the right lung apex. Reading Location: [id number] Assessment & Plan Assessment/Plan (1) Dizziness: (2) Fall: PLAN: Plan Patient is an 89-year-old female who presented to [facility] ED on 11/30/2024 with dizziness/lightheadedness with gait unsteadiness and fall at home. 1. Dizziness/lightheadedness with gait unsteadiness and minor fall at home ? Admit under observation status to [facility]. PT/OT/case management consulted. Unclear etiology but symptoms do seem most consistent with presyncopal symptoms. Very low concern for stroke given numbness/tingling is reportedly present in bilateral hands and feet and no motor symptoms are noted. Home medications and dehydration would be likely contributors to presyncopal symptoms. Unable to obtain orthostatic vitals in ED as patient could not stand without significant symptoms. Given 1 L of IV fluids in the ED; will give another 1 L of fluids over several hours this evening. Hold home Lasix, Jardiance, Lopressor, Entresto and spironolactone for now. Appreciate therapy recommendations. 2. Chronic HFrEF, paroxysmal A-fib on Eliquis, history of complete heart block s/p pacemaker placement, hypertension, hyperlipidemia ? Follows with cardiology, last office visit in August. History of STEMI with stenting to RCA x 1 in 2019. Had multiple ED visits for presyncopal symptoms and 2022 and was found to have A-fib. Had DEBRA cardioversion done in January 2023. Continued to have presyncopal symptoms and was then found to have complete heart block s/p pacemaker placement in January 2023. Last echo in 11/2023 showed EF 35%, moderate global hypokinesis of the LV, mildly dilated RV, no significant valvular disease. Concern for home medications contributing to presentation as above. Given IV fluids and holding home meds as above. Continue home Eliquis and amiodarone. 3. History of breast cancer s/p mastectomy and chemotherapy ? Follows with oncology, last office visit in October. Currently under observation. No inpatient needs, continue outpatient follow-up. 4. Hypothyroidism ? TSH ordered. Continue home Synthroid. DVT prophylaxis: Not indicated, on Eliquis CODE STATUS: Full code, verified Expected disposition: Home, 1 to 2 days Total clinical time spent by myself addressing the patient's medical issues, reviewing all the data, and collaborating with patient's care team: 75 minutes. Charges/Coding Visit Charges Inpatient E&M: 24486 Init Hosp L3 11/30/242224 <Electronically signed by Sean Thornton DO> Cosigner Signature (if applicable): CC: Dr. Sean Thornton DO; Dr. Linda Mao MD~ Signed [facility] Work Phone: [phone] 238-550008-01-2025 History and physical note Author Sean Thornton [facility] Note Date/Time November 30, 2024 10:2 5pm [facility] Medical Records Department [address] [address] H&P Exam - Hospitalist 11/30/24 1413 MR#: [id number] Acct: [id number] Name: ROBERTO FERGUSON Rep #:[id number] : 1935 89 From: Sean ramírez DO PCP: Dr. Linda Mao MD Status :ADM PATRICIA Location: [facility] [id number] HPI - General General Date of Admission: 11/30/24 Date of Service: 11/30/24 Chief Complaint: Dizziness/lightheadedness with gait unsteadiness and fall at home HPI Narrative ROBERTO FERGUSON, is a 89 F who presented to [facility] ED on 11/30/2024 with dizziness/lightheadedness with gait unsteadiness and fall at home. Patient lives at home alone, has fairly good functional status at baseline. Daughter lives nearby. 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 Patient notes that she got up around 5 AM this morning to use the bathroom and felt lightheaded and dizzy leading to a fall onto her elbow. She did reportedlyhit her head as well. She was able to crawl over to the sofa and went back to bed for a period of time, but when she got up around 9 AM she continued to have lightheadedness with dizziness when trying to stand and ambulate, so she called her daughter and came in for further evaluation. In the ED she was mildly hypertensive to the 100s over 40s, in paced rhythm at 60 bpm and stable on room air at rest. CBC and BMP were benign. CT brain and cervical spine were unremarkable. Chest x-ray showed blunting of the right costophrenic angle with small right pleural effusion and bibasilar atelectasis, similar to previous. They attempted to ambulate the patient in the ED but she continued to have significant lightheadedness and dizziness despite being given a dose of meclizine, so hospitalist was contacted for admission. I saw the patient at bedside in the ED, daughter was present. Patient was sitting back comfortably in bed, conversing normally, in no acute distress. She reported no presyncopal symptoms while sitting. Notes that she does have presyncopal symptoms often when going from sitting to standing, but her symptoms today have been much worsethan her normal and have appeared to be accompanied by vertigo. She has no history of vertigo. She also reports numbness/tingling of both of her hands andfeet which is new for her. Notes that she was in her normal state of health yesterday. No other acute concerns currently. Will be admitted for further management. [facility] Medical History (Updated 11/30/24 @ 16:13 by Rody Faustin) Anxiety Depression Hypothyroidism Non-smoker Atrial fibrillation Congestive heart failure (CHF) Pacemaker Myocardial infarct Shingles Atrial tachycardia Presence of permanent cardiac pacemaker CKD (chronic kidney disease) stage 3, GFR 30-59 ml/min Non-rheumatic mitral regurgitation Mitral valve insufficiency Rheumatoid arthritis STEMI (ST elevation myocardial infarction) Atherosclerosis of coronary artery of the [place] heart without angina pectoris History of coronary [...] Medications ?Medication ?Instructions ?Recorded ?Last Taken ?Type acetaminophen 500 mg tablet 1,000 mg PO BID pain 12/11 /20 01/14/21 History levothyroxine 75 mcg tablet 100 mcg PO DAILY thyroid 1 06/07/22 05/07/23 History calcium carbonate 1,000 mg PO DAILY@0800 PRN 1 06/08/22 11/29/24 History indigestion dapagliflozin propanediol 10 mg 10 mg PO QAM #90 tabs 02/01/24 11/29/24 Rx tablet (Farxiga) metoprolol tartrate 50 mg tablet 50 mg PO BID #180 tab s 05/01/24 Unknown Rx amiodarone 200 mg tablet 200 mg PO DAILY #90 tabs 11/29/24 Rx spironolactone 25 mg tablet 25 mg PO QAM #90 tabs 06/0311/29/24 Rx furosemide 40 mg tablet 40 mg PO QDAY #30 tabs 07/2611/29/24 Rx apixaban 2.5 mg tablet 2.5 mg PO BID #180 tabs 08/3111/29/24 Rx mirtazapine 30 mg tablet 45 mg PO DAILY 09/12/2411/02 History sacubitril 24 mg-valsartan 26 mg 1 tab PO BID #180 tab s 09/12/24 11/29/24 Rx tablet (Entresto) Allergy/AdvReac Type Severity Reaction Status Date / Time ticagrelor (From Brilinta) AdvReac Severe Severe Verified 11/30/24 10:43 dyspnea on exertion Family History Father Clotting [...] type: does not use caffeine: Yes ROS Constitutional Constitutional: Denies chills, fatigue, fever(s) or weakness Eyes Eyes: Denies change in vision Cardiovascular Cardiovascular: Denies chest pain Respiratory/Chest Respiratory/Chest: Denies cough, shortness of breath at rest or shortness of breath with exertion Gastrointestinal Gastrointestinal: Denies abdominal pain Musculoskeletal Musculoskeletal: Denies arthralgias or myalgias Neurologic Neurologic: Reports disequilibrium, dizziness and numbness; Denies abnormal speech, confusion, focal weakness, headache(s) or tingling Vital Signs Vital Signs Vital Signs: 11/30/24 10:38 11/30/24 10:44 11/30/24 11:15 Temperature 97.3 F L Temperature Source Axillary Pulse Rate 61 60 Respiratory Rate 16 17 Respiratory Effort Normal Respiratory Depth Normal Respiratory Pattern Normal Blood Pressure 121/51 H 107/46 L Blood Pressure Mean 74 66 Pulse Ox 94 100 Oxygen Delivery Method Room Air Room Air Room Air 11/30/24 11:30 11/30/24 12:00 11/30/24 12:30 Temperature Temperature Source Pulse Rate 60 60 60 Respiratory Rate 18 16 18 Respiratory Effort Respiratory Depth Respiratory Pattern Blood Pressure 111/53 L 107/54 L 106/48 L Blood Pressure Mean 72 71 67 Pulse Ox 100 100 100 Oxygen Delivery Method Room Air Room Air Room Air 11/30/24 13:00 11/30/24 13:30 Temperature Temperature Source Pulse Rate 60 60 Respiratory Rate 25 H 18 Respiratory Effort Respiratory Depth Respiratory Pattern Blood Pressure 113/47 L 106/58 L Blood Pressure Mean 69 74 Pulse Ox 97 100 Oxygen Delivery Method Room Air Room Air Weight Weight: 51.4 kg Body Mass Index (BMI) 18.8 Physical Exam Const alert, oriented x3 and no apparent distress Constitutional Narrative: Elderly female, appears younger than stated age, thin appearing, mildly fatiguedappearing but otherwise sitting back comfortably in bed, conversing normally, inno acute distress. General Appearance: cooperative and comfortable HEENT normocephalic, head/scalp atraumatic, hearing grossly normal bilaterally, nasal mucous membranes and turbinates normal and moist oral mucous membranes Eyes PERRL, EOMs intact bilaterally and conjunctivae normal Neck full ROM Chest inspection of chest normal Resp normal respiratory effort, normal air movement, no use of accessory muscles and clear to auscultation bilaterally Resp Narrative: Breathing comfortably on room air at rest. Mildly diminished breath sounds in bilateral lung bases, no wheezing or crackles noted. Cardio regular rate, regular rhythm, no murmurs and peripheral pulses 2+ throughout GI normal to inspection, nondistended, normoactive bowel sounds, soft to palpation,non-tender and non-distended Back/Spine normal ROM Extremity normal to inspection, full ROM and no pedal edema Skin no rashes or lesions noted Neuro moves all extremities and no focal motor deficits Coordination / Balance: [id number] test normal Speech: speech normal Motor Exam: strength 5/5 throughout Psych mental status grossly normal Results Lab / Micro Data 11/30/24 10:49 11/30/24 13:28 Labs: Laboratory Results - last 24 hr 11/30/24 10:49: WBC 4.0 L, RBC 4.75, Hgb 15.6 H, Hct 45.8, MCV 96.4, MCH 32.8 H,MCHC 34.1, RDW Std Deviation 51.2 H, RDW Coeff of Sharad 14.5, Plt Count 124 L, MPV12.0, Immature Gran % (Auto) 0.300, Neut % (Auto) 52.8, Lymph % (Auto) 27.5, [place] % (Auto) 17.9 H, Eos % (Auto) 1.0, Baso % (Auto) 0.5, Absolute Neuts (auto) 2.1, Absolute Lymphs (auto) 1.09, Nucleated RBC % 0, Sodium Cancelled, PotassiumCancelled, Chloride Cancelled, Carbon Dioxide Cancelled, Anion Gap Cancelled, BUN Cancelled, Creatinine Cancelled, Estim Creat Clear Calc Cancelled, Est GFR (MDRD) Non-Af Cancelled, BUN/Creatinine Ratio Cancelled, Glucose Cancelled, Calcium Cancelled, Total Bilirubin Cancelled, AST Cancelled, ALT Cancelled, Alkaline Phosphatase Cancelled, Total Protein Cancelled, Albumin Cancelled, Globulin Cancelled, Albumin/Globulin Ratio Cancelled 11/30/24 12:27: Sodium Cancelled, Potassium Cancelled, Chloride Cancelled, Carbon Dioxide Cancelled, Anion Gap Cancelled, BUN Cancelled, Creatinine Cancelled, Estim Creat Clear Calc Cancelled, Est GFR (MDRD) Non-Af Cancelled, BUN/Creatinine Ratio Cancelled, Glucose Cancelled, Calcium Cancelled, Total Bilirubin Cancelled, AST Cancelled, ALT Cancelled, Alkaline Phosphatase Cancelled, Total Protein Cancelled, Albumin Cancelled, Globulin Cancelled, Albumin/Globulin Ratio Cancelled 11/30/24 13:28: Sodium 139, Potassium 4.1, Chloride 104, Carbon Dioxide 22.4, Anion Gap 13, BUN 26 H, Creatinine 1.15, Estim Creat Clear Calc 27.44 L, Est GFR(MDRD) Non-Af 46 L, BUN/Creatinine Ratio 22.7 H, Glucose 105 H, Calcium 8.7, Total Bilirubin 0.65, AST 23, ALT 22, Alkaline Phosphatase 45, Total Protein 5.7L, Albumin 3.5, Globulin 2.2, Albumin/Globulin Ratio 1.5 Imaging Radiology Impression Chest X-Ray 11/30/24 10:56 IMPRESSION: Hyperinflation. Blunting of the right costophrenic angle with small right pleural effusion and bibasilar atelectasis. Reading Location: [id number] Brain CT 11/30/24 11:07 IMPRESSION: CHRONIC CHANGES. NO ACUTE FINDINGS. Reading Location: [facility] Cervical Spine CT 11/30/24 11:07 IMPRESSION: Multilevel degenerative changes with facet joint osteoarthritis and hypertrophy as described. Stable anterior subluxation/listhesis of C4 on C5 and C5 on C6. Stable soft tissue density in the anterior aspect of the right lung apex. Reading Location: [facility] Assessment & Plan Assessment/Plan (1) Dizziness: (2) Fall: PLAN: Plan Patient is an 89-year-old female who presented to [facility] ED on 11/30/2024 with dizziness/lightheadedness with gait unsteadiness and fall at home. 1. Dizziness/lightheadedness with gait unsteadiness and minor fall at home ? Admit under observation status to [facility]. PT/OT/case management consulted. Unclear etiology but symptoms do seem most consistent with presyncopal symptoms. Very low concern for stroke given numbness/tingling is reportedly present in bilateral hands and feet and no motor symptoms are noted. Home medications and dehydration would be likely contributors to presyncopal symptoms. Unable to obtain orthostatic vitals in ED as patient could not stand without significant symptoms. Given 1 L of IV fluids in the ED; will give another 1 L of fluids over several hours this evening. Hold home Lasix, Jardiance, Lopressor, Entresto and spironolactone for now. Appreciate therapy recommendations. 2. Chronic HFrEF, paroxysmal A-fib on Eliquis, history of complete heart block s/p pacemaker placement, hypertension, hyperlipidemia ? Follows with cardiology, last office visit in August. History of STEMI with stenting to RCA x 1 in 2019. Had multiple ED visits for presyncopal symptoms and 2022 and was found to have A-fib. Had DEBRA cardioversion done in January 2023. Continued to have presyncopal symptoms and was then found to have complete heart block s/p pacemaker placement in January 2023. Last echo in 11/2023 showed EF 35%, moderate global hypokinesis of the LV, mildly dilated RV, no significant valvular disease. Concern for home medications contributing to presentation as above. Given IV fluids and holding home meds as above. Continue home Eliquis and amiodarone. 3. History of breast cancer s/p mastectomy and chemotherapy ? Follows with oncology, last office visit in October. Currently under observation. No inpatient needs, continue outpatient follow-up. 4. Hypothyroidism ? TSH ordered. Continue home Synthroid. DVT prophylaxis: Not indicated, on Eliquis CODE STATUS: Full code, verified Expected disposition: Home, 1 to 2 days Total clinical time spent by myself addressing the patient's medical issues, reviewing all the data, and collaborating with patient's care team: 75 minutes. Charges/Coding Visit Charges Inpatient E&M: 71284 Init Hosp L3 11/30/242224 <Electronically signed by Sean Thornton DO> Cosigner Signature (if applicable): CC: Dr. Sean Thornton DO; Dr. Linda Mao MD~ Signed [facility] Work Phone: [phone] History and physical note [facility] Medical Records Department [address] [place] [address] H&P Exam - Hospitalist 11/30/24 1413 MR#: [id number] Acct: [id number] Name: ROBERTO FERGUSON Rep #:[id number] : 1935 89 From: Sean ramírez DO PCP: Dr. Linda Mao MD Status :ADM PATRICIA Location: MS3 AE072-6 HPI - General General Date of Admission: 11/30/24 Date of Service: 11/30/24 Chief Complaint: Dizziness/lightheadedness with gait unsteadiness and fall at home HPI Narrative ROBERTO FERGUSON, is a 89 F who presented to [facility] ED on 11/30/2024 with dizziness/lightheadedness with gait unsteadiness and fall at home. Patient lives at home alone, has fairly good functional status at baseline. Daughter lives nearby. Medical history is significant for HFrEF dueto nonischemic cardiomyopathy with most recent EF 35%, paroxysmal A-fib, CAD with stenting, complete heart block s/p pacemaker placement, history of breast cancer s/p mastectomy and chemotherapy on observation, and CKD stage IIIa. Patient notes that she got up around 5 AM this morning to use the bathroom and felt lightheaded and dizzy leading to a fall onto her elbow. She did reportedlyhit her head as well. She was able to crawl over to the sofa and went back to bed for a period of time, but when she got up around 9 AM she continued to have lightheadedness with dizziness when trying to stand and ambulate, so she called her daughter and came in for further evaluation. In the ED she was mildly hypertensive to the 100s over 40s, in paced rhythm at 60 bpm and stable on room air at rest. CBC and BMP were benign. CT brain and cervical spine were unremarkable. Chest x-ray showed blunting of the right costophrenic angle with small right pleural effusion and bibasilar atelectasis, similar to previous. They attempted to ambulate the patient in the ED but she continued to have significant lightheadedness and dizziness despite being given a dose of meclizine, so hospitalist was contacted for admission. I saw the patient at bedside in the ED, daughter was present. Patient was sitting back comfortably in bed, conversing normally, in no acute distress. She reported no presyncopal symptoms while sitting. Notes that she does have presyncopal symptoms often when going from sitting to standing, but her symptoms today have been much worsethan her normal and have appeared to be accompanied by vertigo. She has no history of vertigo. She also reports numbness/tingling of both of her hands andfeet which is new for her. Notes that she was in her normal state of health yesterday. No other acuteconcerns currently. Will be admitted for further management. [facility] Medical History (Updated 11/30/24 @ 16:13 by Rody Faustin) Anxiety Depression Hypothyroidism Non-smoker Atrial fibrillation Congestive heart failure (CHF) Pacemaker Myocardial infarct Shingles Atrial tachycardia Presence of permanent cardiac pacemaker CKD (chronic kidney disease) stage 3, GFR 30-59 ml/min Non-rheumatic mitral regurgitation Mitral valve insufficiency Rheumatoid arthritis STEMI (ST elevation myocardial infarction) Atherosclerosis of coronary artery of the [place] heart without angina pectoris History of coronary [...] Medications ?Medication ?Instructions ?Recorded ?Last Taken ?Type acetaminophen 500 mg tablet 1,000 mg PO BID pain 04/1205/16/20 History levothyroxine 75 mcg tablet 100 mcg PO DAILY thyroid 1 06/07/22 05/07/23 History calcium carbonate 1,000 mg PO DAILY@0800 PRN 1 06/08/22 11/29/24 History indigestion dapagliflozin propanediol 10 mg 10 mg PO QAM #90 tabs 02/01/24 11/29/24 Rx tablet (Farxiga) metoprolol tartrate 50 mg tablet 50 mg PO BID #180 tab s 05/01/24 Unknown Rx amiodarone 200 mg tablet 200 mg PO DAILY #90 tabs 11/29/24 Rx spironolactone 25 mg tablet 25 mg PO QAM #90 tabs 06/0311/29/24 Rx furosemide 40 mg tablet 40 mg PO QDAY #30 tabs 07/2611/29/24 Rx apixaban 2.5 mg tablet 2.5 mg PO BID #180 tabs 08/3111/29/24 Rx mirtazapine 30 mg tablet 45 mg PO DAILY 09/12/24/ History sacubitril 24 mg-valsartan 26 mg 1 tab PO BID #180 tab s 09/12/24 11/29/24 Rx tablet (Entresto) Allergy/AdvReac Type Severity Reaction Status Date / Time ticagrelor (From Brilinta) AdvReac Severe Severe Verified 11/30/24 10:43 dyspnea on exertion Family History Father Clotting [...] type: does not use caffeine: Yes ROS Constitutional Constitutional: Denies chills, fatigue, fever(s) or weakness Eyes Eyes: Denies change in vision Cardiovascular Cardiovascular: Denies chest pain Respiratory/Chest Respiratory/Chest: Denies cough, shortness of breath at rest or shortness of breath with exertion Gastrointestinal Gastrointestinal: Denies abdominal pain Musculoskeletal Musculoskeletal: Denies arthralgias or myalgias Neurologic Neurologic: Reports disequilibrium, dizziness and numbness; Denies abnormal speech, confusion, focal weakness, headache(s) or tingling Vital Signs Vital Signs Vital Signs: 11/30/24 10:38 11/30/24 10:44 11/30/24 11:15 Temperature 97.3 F L Temperature Source Axillary Pulse Rate 61 60 Respiratory Rate 16 17 Respiratory Effort Normal Respiratory Depth Normal Respiratory Pattern Normal Blood Pressure 121/51 H 107/46 L Blood Pressure Mean 74 66 Pulse Ox 94 100 Oxygen Delivery Method Room Air Room Air Room Air 11/30/24 11:30 11/30/24 12:00 11/30/24 12:30 Temperature Temperature Source Pulse Rate 60 60 60 Respiratory Rate 18 16 18 Respiratory Effort Respiratory Depth Respiratory Pattern Blood Pressure 111/53 L 107/54 L 106/48 L Blood Pressure Mean 72 71 67 Pulse Ox 100 100 100 Oxygen Delivery Method Room Air Room Air Room Air 11/30/24 13:00 11/30/24 13:30 Temperature Temperature Source Pulse Rate 60 60 Respiratory Rate 25 H 18 Respiratory Effort Respiratory Depth Respiratory Pattern Blood Pressure 113/47 L 106/58 L Blood Pressure Mean 69 74 Pulse Ox 97 100 Oxygen Delivery Method Room Air Room Air Weight Weight: 51.4 kg Body Mass Index (BMI) 18.8 Physical Exam Const alert, oriented x3 and no apparent distress Constitutional Narrative: Elderly female, appears younger than stated age, thin appearing, mildly fatiguedappearing but otherwise sitting back comfortably in bed, conversing normally, inno acute distress. General Appearance: cooperative and comfortable HEENT normocephalic, head/scalp atraumatic, hearing grossly normal bilaterally, nasal mucous membranes and turbinates normal and moist oral mucous membranes Eyes PERRL, EOMs intact bilaterally and conjunctivae normal Neck full ROM Chest inspection of chest normal Resp normal respiratory effort, normal air movement, no use of accessory muscles and clear to auscultation bilaterally Resp Narrative: Breathing comfortably on room air at rest. Mildly diminished breath sounds in bilateral lung bases,no wheezing or crackles noted. Cardio regular rate, regular rhythm, no murmurs and peripheral pulses 2+ throughout GI normal to inspection, nondistended, normoactive bowel sounds, soft to palpation,non-tender and non-distended Back/Spine normal ROM Extremity normal to inspection, full ROM and no pedal edema Skin no rashes or lesions noted Neuro moves all extremities and no focal motor deficits Coordination / Balance: [id number] test normal Speech: speech normal Motor Exam: strength 5/5 throughout Psych mental status grossly normal Results Lab / Micro Data 11/30/24 10:49 11/30/24 13:28 Labs: Laboratory Results - last 24 hr 11/30/24 10:49: WBC 4.0 L, RBC 4.75, Hgb 15.6 H, Hct 45.8, MCV 96.4, MCH 32.8 H,MCHC 34.1, RDW Std Deviation 51.2 H, RDW Coeff of Sharad 14.5, Plt Count 124 L, MPV12.0, Immature Gran % (Auto) 0.300, Neut % (Auto) 52.8, Lymph % (Auto) 27.5, [place] % (Auto) 17.9 H, Eos % (Auto) 1.0, Baso % (Auto) 0.5, Absolute Neuts (auto) 2.1, Absolute Lymphs (auto) 1.09, Nucleated RBC % 0, Sodium Cancelled, PotassiumCancelled, Chloride Cancelled, Carbon Dioxide Cancelled, Anion Gap Cancelled, BUN Cancelled, Creatinine Cancelled, Estim Creat Clear Calc Cancelled, Est GFR (MDRD) Non-Af Cancelled, BUN/Creatinine Ratio Cancelled, Glucose Cancelled, Calcium Cancelled, Total Bilirubin Cancelled, AST Cancelled, ALT Cancelled, Alkaline Phosphatase Cancelled, Total Protein Cancelled, Albumin Cancelled, Globulin Cancelled, Albumin/Globulin Ratio Cancelled 11/30/24 12:27: Sodium Cancelled, Potassium Cancelled, Chloride Cancelled, Carbon Dioxide Cancelled, Anion Gap Cancelled, BUN Cancelled, Creatinine Cancelled, Estim Creat Clear Calc Cancelled, Est GFR (MDRD) Non-Af Cancelled, BUN/Creatinine Ratio Cancelled, Glucose Cancelled, Calcium Cancelled, Total Bilirubin Cancelled, AST Cancelled, ALT Cancelled, Alkaline Phosphatase Cancelled, Total Protein Cancelled, Albumin Cancelled, Globulin Cancelled, Albumin/Globulin Ratio Cancelled 11/30/24 13:28: Sodium 139, Potassium 4.1, Chloride 104, Carbon Dioxide 22.4, Anion Gap 13, BUN 26 H, Creatinine 1.15, Estim Creat Clear Calc 27.44 L, Est GFR(MDRD) Non-Af 46 L, BUN/Creatinine Ratio 22.7 H, Glucose 105 H, Calcium 8.7, Total Bilirubin 0.65, AST 23, ALT 22, Alkaline Phosphatase 45, Total Protein 5.7L, Albumin 3.5, Globulin 2.2, Albumin/Globulin Ratio 1.5 Imaging Radiology Impression Chest X-Ray 11/30/24 10:56 IMPRESSION: Hyperinflation. Blunting of the right costophrenic angle with small right pleural effusion and bibasilar atelectasis. Reading Location: [id number] Brain CT 11/30/24 11:07 IMPRESSION: CHRONIC CHANGES. NO ACUTE FINDINGS. Reading Location: [id number] Cervical Spine CT 11/30/24 11:07 IMPRESSION: Multilevel degenerative changes with facet joint osteoarthritis and hypertrophy as described. Stable anterior subluxation/listhesis of C4 on C5 and C5 on C6. Stable soft tissue density in the anterior aspect of the right lung apex. Reading Location: [id number] Assessment & Plan Assessment/Plan (1) Dizziness: (2) Fall: PLAN: Plan Patient is an 89-year-old female who presented to [facility] ED on 11/30/2024 with dizziness/lightheadedness with gait unsteadiness and fall at home. 1. Dizziness/lightheadedness with gait unsteadiness and minor fall at home ? [facility]/OT/case management consulted. Unclear etiology but symptoms do seem most consistent with presyncopal symptoms. Very low concern for stroke given numbness/tingling is reportedly present in bilateral hands and feet and no motor symptoms are noted. Home medications and dehydration would be likely contributors to presyncopal symptoms. Unable to obtain orthostatic vitals in ED as patient could not stand without significant symptoms. Given 1 L of IV fluids in the ED; will give another 1 L of fluids over several hours this evening. Hold home Lasix, Jardiance, Lopressor, Entresto and spironolactone for now. Appreciate therapy recommendations. 2. Chronic HFrEF, paroxysmal A-fib on Eliquis, history of complete heart block s/p pacemaker placement, hypertension, hyperlipidemia ? Follows with cardiology, last office visit in August. History of STEMI with stenting to RCA x 1 in 2019. Had multiple ED visits for presyncopal symptoms and 2022 and was found to have A-fib. Had DEBRA cardioversion done in January 2023. Continued to have presyncopal symptoms and was then found to have complete heart block s/p pacemaker placement in January 2023. Last echo in 11/2023 showed EF 35%, moderate global hypokinesis of the LV, mildly dilated RV, no significant valvular disease. Concern for home medications contributing to presentation as above. Given IV fluids and holding home meds as above. Continue home Eliquis and amiodarone. 3. History of breast cancer s/p mastectomy and chemotherapy ? Follows with oncology, last office visit in October. Currently under observation. No inpatient needs, continue outpatient follow-up. 4. Hypothyroidism ? TSH ordered. Continue home Synthroid. DVT prophylaxis: Not indicated, on Eliquis CODE STATUS: Full code, verified Expected disposition: Home, 1 to 2 days Total clinical time spent by myself addressing the patient's medical issues, reviewing all the data, and collaborating with patient's care team: 75 minutes. Charges/Coding Visit Charges Inpatient E&M: 14505 Init Hosp L3 11/30/242224 Cosigner Signature (if applicable): CC: Dr. Sean Thornton DO; Dr. Linda Mao MD~ Signed [facility]07-31-2025 Discharge summary Author [facility] Note Date/Time November 30, 2024 3:05 pm [facility] Medical Records Department [address] [place] [address] Emergency Department Summary 11/30/24 MR#: [id number] Acct: [id number] Name: ROBERTO FERGUSON Rep #:[id number] : 1935 89 From: Nikos Lake MD PCP: Dr. Linda Mao MD Status :REG ER Location: ED HPI History of Present Illness Chief Complaint: Fall Narrative Narrative: 89-year-old female past medical history of coronary artery disease and pacemakerpresents with dizziness and lightheadedness which caused her to fall this morning. She states that she got up at around 530 this morning, approximately 5hours ago, and was attempting to ambulate to the bathroom. She states that she usually gets up and is somewhat groggy and has to hold onto the paredes. When shestands, she states she feels whooshing in her head, and feels very dizzy and lightheaded. She fell today because of the dizziness and struck her right forehead. She does take Eliquis for coronary artery disease and pacemaker. Shedenies loss of consciousness afterwards. Currently, she states that she has numbness of both feet and hands, but is not complete numbness. She was unable to stand up fully. She states that after she had fallen she crawled to her sofa, and climbed up onto the couch. She laid there for a bit, but was unable to call her daughter because her phone was in the bedroom. She crawled to the bedroom, called her daughter, and later down and fell asleep for few hours but she still feels lightheadedness and dizziness, especially when she moves her head or sits up. [facility] Medical History Shingles Atrial tachycardia Presence of permanent cardiac pacemaker CKD (chronic kidney disease) stage 3, GFR 30-59 ml/min Non-rheumatic mitral regurgitation Mitral valve insufficiency Rheumatoid arthritis STEMI (ST elevation myocardial infarction) Atherosclerosis of coronary artery of the [place] heart without angina pectoris History of coronary [...] Medications ?Medication ?Instructions ?Recorded ?Last Taken ?Type acetaminophen 500 mg tablet 1,000 mg PO BID pain 04/1205/16/20 History levothyroxine 75 mcg tablet 100 mcg PO DAILY thyroid 1 06/07/22 05/07/23 History calcium carbonate 1,000 mg PO DAILY@0800 PRN 1 06/08/22 Unknown History indigestion dapagliflozin propanediol 10 mg 10 [...] tablet 40 mg PO QDAY #30 tabs 07/26 Unknown Rx apixaban 2.5 mg tablet 2.5 mg PO BID #180 tabs 08/31 07/25 Unknown Rx mirtazapine 30 mg tablet 45 mg PO DAILY 09/12/24 Unkn own History sacubitril 24 mg-valsartan 26 mg 1 tab PO BID #180 tab s 09/12/24 Unknown Rx tablet (Entresto) Allergy/AdvReac Type Severity Reaction Status Date / Time ticagrelor (From Brilinta) AdvReac Severe Severe Verified 11/30/24 10:43 dyspnea on exertion Family History Father Clotting [...] not use caffeine: Yes ROS ROS ED ROS Narrative Review of systems positive for lightheadedness and dizziness causing fall. Positive trauma to right forehead/ecchymosis and swelling. Dizziness and lightheadedness worse when sits up or moves head [id number]. Positive numbness of bilateral hands and feet. No neck pain. Able to move all extremities but not stand straight up. EXAM Physical Exam Narrative Exam Narrative: GCS 15. ABCs intact. Cardiovascular examination reveals regular rate and rhythm. Lungs are clear to auscultation bilaterally. Abdomen is soft and nontender with positive bowel sounds. No guarding or rebound. Neurological examination is nonfocal and nonlateralizing. Able to move all extremities. HEENT examination shows mild ecchymosis on right forehead with minimal swelling,no crepitance. No vertebral point tenderness or bony step-off. Full range of motion of neck. Const Vital Signs: 11/30/24 10:38 11/30/24 10:44 11/30/24 11:15 Temperature 97.3 F L Temperature Source Axillary Pulse Rate 61 60 Respiratory Rate 16 17 Respiratory Effort Normal Respiratory Depth Normal Respiratory Pattern Normal Blood Pressure 121/51 H 107/46 L Blood Pressure Mean 74 66 Pulse Ox 94 100 Oxygen Delivery Method Room Air Room Air Room Air 11/30/24 11:30 11/30/24 12:00 11/30/24 12:30 Temperature Temperature Source Pulse Rate 60 60 60 Respiratory Rate 18 16 18 Respiratory Effort Respiratory Depth Respiratory Pattern Blood Pressure 111/53 L 107/54 L 106/48 L Blood Pressure Mean 72 71 67 Pulse Ox 100 100 100 Oxygen Delivery Method Room Air Room Air Room Air 11/30/24 13:00 11/30/24 13:30 11/30/24 14:00 Temperature Temperature Source Pulse Rate 60 60 60 Respiratory Rate 25 H 18 16 Respiratory Effort Respiratory Depth Respiratory Pattern Blood Pressure 113/47 L 106/58 L 104/53 L Blood Pressure Mean 69 74 70 Pulse Ox 97 100 100 Oxygen Delivery Method Room Air Room Air 11/30/24 14:30 Temperature Temperature Source Pulse Rate 60 Respiratory Rate 18 Respiratory Effort Respiratory Depth Respiratory Pattern Blood Pressure 125/69 H Blood Pressure Mean 87 Pulse Ox 100 Oxygen Delivery Method Room Air MDM MDM MDM Narrative Medical decision making narrative: The differential diagnosis includes but not limited to intracranial hemorrhage versus closed head injury on anticoagulant versus forehead hematoma versus skullfracture versus positional vertigo versus dehydration versus orthostatic hypotension. I have low suspicion for ACS. Given her fall on anticoagulant, CT of the brain and of the cervical spine will be obtained to rule out fracture or intracranial hemorrhage. Chest x-ray will be obtained as well as CBC, CMP. EKG obtained interpreted by myself independently as a paced rhythm at [address] changes. No STEMI. Her CMP hemolyzed multiple times. However, on this review BUN of 26 and creatinine 1.15, normal sodium, normal potassium and normal chloride. LFTs are grossly unremarkable. CBC shows slightneutropenia at 4.0. When compared to prior labs she has had neutropenia in the past. Hemoglobin 15.6, hematocrit 45.8. Platelet count low at 124. I do not feel she requires platelet transfusion. I reviewed the radiology report of the CT of the brain and there is no evidence of skull fracture or acute intracranial hemorrhage. Additionally on review of the CT report of the cervical spine, there are degenerative changes but once again no evidence of an acute fracture. Chest x-ray interpreted by myself independently shows bibasilar atelectasis but no consolidation or pneumothorax. There is small right pleural effusion. I reviewed the radiology report which confirms my independent interpretation. With the thought that she may have positional vertigo, she was given meclizine. However, on repeat examination she was unable to ambulate. I then discussed thepatient with Dr. Thornton. She will be assigned observation on the general medical floor. Disposition is assigned observation in stable condition. History & Record Review Discussion w/independent historian: Patient Additional record(s) reviewed:: Prior labs Lab Data Attestation: I reviewed the patient's lab results. Labs: Laboratory Results - last 24 hr 11/30/24 11/30/24 11/30/24 10:49 12:27 13:28 WBC 4.0 L RBC 4.75 Hgb 15.6 H Hct 45.8 MCV 96.4 MCH 32.8 H MCHC 34.1 RDW Std Deviation 51.2 H RDW Coeff of Sharad 14.5 Plt Count 124 L MPV 12.0 Immature Gran % (Auto) 0.300 Neut % (Auto) 52.8 Lymph % (Auto) 27.5 [place] % (Auto) 17.9 H Eos % (Auto) 1.0 Baso % (Auto) 0.5 Absolute Neuts (auto) 2.1 Absolute Lymphs (auto) 1.09 Nucleated RBC % 0 Sodium Cancelled Cancelled 139 Potassium Cancelled Cancelled 4.1 Chloride Cancelled Cancelled 104 Carbon Dioxide Cancelled Cancelled 22.4 Anion Gap Cancelled Cancelled 13 BUN Cancelled Cancelled 26 H Creatinine Cancelled Cancelled 1.15 Estim Creat Clear Calc Cancelled Cancelled 27.44 L Est GFR (MDRD) Non-Af Cancelled Cancelled 46 L BUN/Creatinine Ratio Cancelled Cancelled 22.7 H Glucose Cancelled Cancelled 105 H Calcium Cancelled Cancelled 8.7 Total Bilirubin Cancelled Cancelled 0.65 AST Cancelled Cancelled 23 ALT Cancelled Cancelled 22 Alkaline Phosphatase Cancelled Cancelled 45 Total Protein Cancelled Cancelled 5.7 L Albumin Cancelled Cancelled 3.5 Globulin Cancelled Cancelled 2.2 Albumin/Globulin Ratio Cancelled Cancelled 1.5 Radiography Chest X-Ray - ED: 1 View, Read by ED Physician, Read by Radiologist, No Acute Disease, Right Effusion and - (Bibasilar atelectasis) Diagnostic Testing: Clinical Impression(s) from Imaging Studies Chest X-Ray 11/30/24 10:56 IMPRESSION: Hyperinflation. Blunting of the right costophrenic angle with small right pleural effusion and bibasilar atelectasis. Reading Location: [id number] Brain CT 11/30/24 11:07 IMPRESSION: CHRONIC CHANGES. NO ACUTE FINDINGS. Reading Location: [id number] Cervical Spine CT 11/30/24 11:07 IMPRESSION: Multilevel degenerative changes with facet joint osteoarthritis and hypertrophy as described. Stable anterior subluxation/listhesis of C4 on C5 and C5 on C6. Stable soft tissue density in the anterior aspect of the right lung apex. Reading Location: [id number] Management Discussion w/another healthcare provider: Hospitalist (Dr. Thornton) Discharge Plan Dx/Rx/DC Orders Clinical Impression: Dizziness, Fall, Traumatic hematoma of forehead, Closed head injury, Anticoagulant long-term use, Paresthesias Disposition Disposition: Acute Care Hospital [facility] What to do if you have Problems For any increased pain, shortness of breath, bleeding, nausea or vomiting, chestpain, or any unexpected problems, contact your Primary Care Provider. Call [facility] ([phone]) or report to the closest Emergency Room. Call 911 if necessary. 11/30/24 1505 <Electronically signed by Nikos Lake MD> Cosigner Signature (if applicable): CC: Dr. Linda Mao MD ~ Signed [facility] Work Phone: [phone] Discharge summary Author Nikos Lake [facility] Note Date/Time November 30, 2024 3:05 pm [facility] Medical Records Department [address] [place] [address] Emergency Department Summary 11/30/24 MR#: [id number] Acct: [id number] Name: ROBERTO FERGUSON Rep #:[id number] : 1935 89 From: Nikos Lake MD PCP: Dr. Linda Mao MD Status :REG ER Location: ED HPI History of Present Illness Chief Complaint: Fall Narrative Narrative: 89-year-old female past medical history of coronary artery disease and pacemakerpresents with dizziness and lightheadedness which caused her to fall this morning. She states that she got up at around 530 this morning, approximately 5hours ago, and was attempting to ambulate to the bathroom. She states that she usually gets up and is somewhat groggy and has to hold onto the paredes. When shestands, she states she feels whooshing in her head, and feels very dizzy and lightheaded. She fell today because of the dizziness and struck her right forehead. She does take Eliquis for coronary artery disease and pacemaker. Shedenies loss of consciousness afterwards. Currently, she states that she has numbness of both feet and hands, but is not complete numbness. She was unable to stand up fully. She states that after she had fallen she crawled to her sofa, and climbed up onto the couch. She laid there for a bit, but was unable to call her daughter because her phone was in the bedroom. She crawled to the bedroom, called her daughter, and later down and fell asleep for few hours but she still feels lightheadedness and dizziness, especially when she moves her head or sits up. [facility] Medical History Shingles Atrial tachycardia Presence of permanent cardiac pacemaker CKD (chronic kidney disease) stage 3, GFR 30-59 ml/min Non-rheumatic mitral regurgitation Mitral valve insufficiency Rheumatoid arthritis STEMI (ST elevation myocardial infarction) Atherosclerosis of coronary artery of the [place] heart without angina pectoris History of coronary [...] Medications ?Medication ?Instructions ?Recorded ?Last Taken ?Type acetaminophen 500 mg tablet 1,000 mg PO BID pain 04/1205/16/20 History levothyroxine 75 mcg tablet 100 mcg PO DAILY thyroid 1 2/05/23 01/05/24 History calcium carbonate 1,000 mg PO DAILY@0800 PRN 1 06/08/22 Unknown History indigestion dapagliflozin propanediol 10 mg 10 [...] tablet 40 mg PO QDAY #30 tabs 07/26 Unknown Rx apixaban 2.5 mg tablet 2.5 mg PO BID #180 tabs 08/31 07/25 Unknown Rx mirtazapine 30 mg tablet 45 mg PO DAILY 09/12/24 Unkn own History sacubitril 24 mg-valsartan 26 mg 1 tab PO BID #180 tab s 09/12/24 Unknown Rx tablet (Entresto) Allergy/AdvReac Type Severity Reaction Status Date / Time ticagrelor (From Brilinta) AdvReac Severe Severe Verified 11/30/24 10:43 dyspnea on exertion Family History Father Clotting [...] not use caffeine: Yes ROS ROS ED ROS Narrative Review of systems positive for lightheadedness and dizziness causing fall. Positive trauma to right forehead/ecchymosis and swelling. Dizziness and lightheadedness worse when sits up or moves head [id number]. Positive numbness of bilateral hands and feet. No neck pain. Able to move all extremities but not stand straight up. EXAM Physical Exam Narrative Exam Narrative: GCS 15. ABCs intact. Cardiovascular examination reveals regular rate and rhythm. Lungs are clear to auscultation bilaterally. Abdomen is soft and nontender with positive bowel sounds. No guarding or rebound. Neurological examination is nonfocal and nonlateralizing. Able to move all extremities. HEENT examination shows mild ecchymosis on right forehead with minimal swelling,no crepitance. No vertebral point tenderness or bony step-off. Full range of motion of neck. Const Vital Signs: 11/30/24 10:38 11/30/24 10:44 11/30/24 11:15 Temperature 97.3 F L Temperature Source Axillary Pulse Rate 61 60 Respiratory Rate 16 17 Respiratory Effort Normal Respiratory Depth Normal Respiratory Pattern Normal Blood Pressure 121/51 H 107/46 L Blood Pressure Mean 74 66 Pulse Ox 94 100 Oxygen Delivery Method Room Air Room Air Room Air 11/30/24 11:30 11/30/24 12:00 11/30/24 12:30 Temperature Temperature Source Pulse Rate 60 60 60 Respiratory Rate 18 16 18 Respiratory Effort Respiratory Depth Respiratory Pattern Blood Pressure 111/53 L 107/54 L 106/48 L Blood Pressure Mean 72 71 67 Pulse Ox 100 100 100 Oxygen Delivery Method Room Air Room Air Room Air 11/30/24 13:00 11/30/24 13:30 11/30/24 14:00 Temperature Temperature Source Pulse Rate 60 60 60 Respiratory Rate 25 H 18 16 Respiratory Effort Respiratory Depth Respiratory Pattern Blood Pressure 113/47 L 106/58 L 104/53 L Blood Pressure Mean 69 74 70 Pulse Ox 97 100 100 Oxygen Delivery Method Room Air Room Air 11/30/24 14:30 Temperature Temperature Source Pulse Rate 60 Respiratory Rate 18 Respiratory Effort Respiratory Depth Respiratory Pattern Blood Pressure 125/69 H Blood Pressure Mean 87 Pulse Ox 100 Oxygen Delivery Method Room Air MDM MDM MDM Narrative Medical decision making narrative: The differential diagnosis includes but not limited to intracranial hemorrhage versus closed head injury on anticoagulant versus forehead hematoma versus skullfracture versus positional vertigo versus dehydration versus orthostatic hypotension. I have low suspicion for ACS. Given her fall on anticoagulant, CT of the brain and of the cervical spine will be obtained to rule out fracture or intracranial hemorrhage. Chest x-ray will be obtained as well as CBC, CMP. EKG obtained interpreted by myself independently as a paced rhythm at [address] changes. No STEMI. Her CMP hemolyzed multiple times. However, on this review BUN of 26 and creatinine 1.15, normal sodium, normal potassium and normal chloride. LFTs are grossly unremarkable. CBC shows slightneutropenia at 4.0. When compared to prior labs she has had neutropenia in the past. Hemoglobin 15.6, hematocrit 45.8. Platelet count low at 124. I do not feel she requires platelet transfusion. I reviewed the radiology report of the CT of the brain and there is no evidence of skull fracture or acute intracranial hemorrhage. Additionally on review of the CT report of the cervical spine, there are degenerative changes but once again no evidence of an acute fracture. Chest x-ray interpreted by myself independently shows bibasilar atelectasis but no consolidation or pneumothorax. There is small right pleural effusion. I reviewed the radiology report which confirms my independent interpretation. With the thought that she may have positional vertigo, she was given meclizine. However, on repeat examination she was unable to ambulate. I then discussed thepatient with Dr. Thornton. She will be assigned observation on the general medical floor. Disposition is assigned observation in stable condition. History & Record Review Discussion w/independent historian: Patient Additional record(s) reviewed:: Prior labs Lab Data Attestation: I reviewed the patient's lab results. Labs: Laboratory Results - last 24 hr 11/30/24 11/30/24 11/30/24 10:49 12:27 13:28 WBC 4.0 L RBC 4.75 Hgb 15.6 H Hct 45.8 MCV 96.4 MCH 32.8 H MCHC 34.1 RDW Std Deviation 51.2 H RDW Coeff of Sharad 14.5 Plt Count 124 L MPV 12.0 Immature Gran % (Auto) 0.300 Neut % (Auto) 52.8 Lymph % (Auto) 27.5 [place] % (Auto) 17.9 H Eos % (Auto) 1.0 Baso % (Auto) 0.5 Absolute Neuts (auto) 2.1 Absolute Lymphs (auto) 1.09 Nucleated RBC % 0 Sodium Cancelled Cancelled 139 Potassium Cancelled Cancelled 4.1 Chloride Cancelled Cancelled 104 Carbon Dioxide Cancelled Cancelled 22.4 Anion Gap Cancelled Cancelled 13 BUN Cancelled Cancelled 26 H Creatinine Cancelled Cancelled 1.15 Estim Creat Clear Calc Cancelled Cancelled 27.44 L Est GFR (MDRD) Non-Af Cancelled Cancelled 46 L BUN/Creatinine Ratio Cancelled Cancelled 22.7 H Glucose Cancelled Cancelled 105 H Calcium Cancelled Cancelled 8.7 Total Bilirubin Cancelled Cancelled 0.65 AST Cancelled Cancelled 23 ALT Cancelled Cancelled 22 Alkaline Phosphatase Cancelled Cancelled 45 Total Protein Cancelled Cancelled 5.7 L Albumin Cancelled Cancelled 3.5 Globulin Cancelled Cancelled 2.2 Albumin/Globulin Ratio Cancelled Cancelled 1.5 Radiography Chest X-Ray - ED: 1 View, Read by ED Physician, Read by Radiologist, No Acute Disease, Right Effusion and - (Bibasilar atelectasis) Diagnostic Testing: Clinical Impression(s) from Imaging Studies Chest X-Ray 11/30/24 10:56 IMPRESSION: Hyperinflation. Blunting of the right costophrenic angle with small right pleural effusion and bibasilar atelectasis. Reading Location: [id number] Brain CT 11/30/24 11:07 IMPRESSION: CHRONIC CHANGES. NO ACUTE FINDINGS. Reading Location: [id number] Cervical Spine CT 11/30/24 11:07 IMPRESSION: Multilevel degenerative changes with facet joint osteoarthritis and hypertrophy as described. Stable anterior subluxation/listhesis of C4 on C5 and C5 on C6. Stable soft tissue density in the anterior aspect of the right lung apex. Reading Location: [id number] Management Discussion w/another healthcare provider: Hospitalist (Dr. Thornton) Discharge Plan Dx/Rx/DC Orders Clinical Impression: Dizziness, Fall, Traumatic hematoma of forehead, Closed head injury, Anticoagulant long-term use, Paresthesias Disposition Disposition: Acute Care Hospital [facility] What to do if you have Problems For any increased pain, shortness of breath, bleeding, nausea or vomiting, chestpain, or any unexpected problems, contact your Primary Care Provider. Call [facility] ([phone]) or report to the closest Emergency Room. Call 911 if necessary. 11/30/24 1505 <Electronically signed by Nikos Lake MD> Cosigner Signature (if applicable): CC: Dr. Linda Mao MD ~ Signed [facility] Work Phone: [phone] Discharge summary [facility] Medical Records Department [address] [place] [address] Emergency Department Summary 11/30/24 MR#: [id number] Acct: [id number] Name: ROBERTO FERGUSON Rep #:[id number] : 1935 89 From: Nikos Lake MD PCP: Dr. Linda Mao MD Status :REG ER Location: ED HPI History of Present Illness Chief Complaint: Fall Narrative Narrative: 89-year-old female past medical history of coronary artery disease and pacemakerpresents with dizziness and lightheadedness which caused her to fall this morning. She states that she got up at [id number] this morning, approximately 5hours ago, and was attempting to ambulate to the bathroom. She states that she usually gets up and is somewhat groggy and has to hold onto the paredes. When shestands, she states she feels whooshing in her head, and feels very dizzy and lightheaded. She fell today because of the dizziness and struck her right forehead. She does take Eliquis for coronary artery disease and pacemaker. Shedenies loss of consciousness afterwards. Currently, she states that she has numbness of both feet and hands, but is not complete numbness. She was unable to stand up fully. She states that after she had fallen she crawled to her sofa, and climbed up onto the couch. She laid there for a bit, but was unable to call her daughter because her phone was in the bedroom. She crawled to the bedroom, called her daughter, and later down and fell asleep for few hours but she still feelslightheadedness and dizziness, especially when she moves her head or sits up. [facility] Medical History Shingles Atrial tachycardia Presence of permanent cardiac pacemaker CKD (chronic kidney disease) stage 3, GFR 30-59 ml/min Non-rheumatic mitral regurgitation Mitral valve insufficiency Rheumatoid arthritis STEMI (ST elevation myocardial infarction) Atherosclerosis of coronary artery of the [place] heart without angina pectoris History of coronary [...] Medications ?Medication ?Instructions ?Recorded ?Last Taken ?Type acetaminophen 500 mg tablet 1,000 mg PO BID pain 04/1205/16/20 History levothyroxine 75 mcg tablet 100 mcg PO DAILY thyroid 1 06/07/22 05/07/23 History calcium carbonate 1,000 mg PO DAILY@0800 PRN 1 06/08/22 Unknown History indigestion dapagliflozin propanediol 10 mg 10 [...] tablet 40 mg PO QDAY #30 tabs 07/26 Unknown Rx apixaban 2.5 mg tablet 2.5 mg PO BID #180 tabs 08/31 07/25 Unknown Rx mirtazapine 30 mg tablet 45 mg PO DAILY 09/12/24 Unkn own History sacubitril 24 mg-valsartan 26 mg 1 tab PO BID #180 tab s 09/12/24 Unknown Rx tablet (Entresto) Allergy/AdvReac Type Severity Reaction Status Date / Time ticagrelor (From Brilinta) AdvReac Severe Severe Verified 11/30/24 10:43 dyspnea on exertion Family History Father Clotting [...] not use caffeine: Yes ROS ROS ED ROS Narrative Review of systems positive for lightheadedness and dizziness causing fall. Positive trauma to rightforehead/ecchymosis and swelling. Dizziness and lightheadedness worse when sits up or moves head [id number]. Positive numbness of bilateral hands and feet. No neck pain. Able to move all extremities but not stand straight up. EXAM Physical Exam Narrative Exam Narrative: GCS 15. ABCs intact. Cardiovascular examination reveals regular rate and rhythm. Lungs are clear toauscultation bilaterally. Abdomen is soft and nontender with positive bowel sounds. No guarding or rebound. Neurological examination is nonfocal and nonlateralizing. Able to move all extremities. HEENT examination shows mild ecchymosis on right forehead with minimal swelling,no crepitance. No vertebral point tenderness or bony step-off. Full range of motion of neck. Const Vital Signs: 11/30/24 10:38 11/30/24 10:44 11/30/24 11:15 Temperature 97.3 F L Temperature Source Axillary Pulse Rate 61 60 Respiratory Rate 16 17 Respiratory Effort Normal Respiratory Depth Normal Respiratory Pattern Normal Blood Pressure 121/51 H 107/46 L Blood Pressure Mean 74 66 Pulse Ox 94 100 Oxygen Delivery Method Room Air Room Air Room Air 11/30/24 11:30 11/30/24 12:00 11/30/24 12:30 Temperature Temperature Source Pulse Rate 60 60 60 Respiratory Rate 18 16 18 Respiratory Effort Respiratory Depth Respiratory Pattern Blood Pressure 111/53 L 107/54 L 106/48 L Blood Pressure Mean 72 71 67 Pulse Ox 100 100 100 Oxygen Delivery Method Room Air Room Air Room Air 11/30/24 13:00 11/30/24 13:30 11/30/24 14:00 Temperature Temperature Source Pulse Rate 60 60 60 Respiratory Rate 25 H 18 16 Respiratory Effort Respiratory Depth Respiratory Pattern Blood Pressure 113/47 L 106/58 L 104/53 L Blood Pressure Mean 69 74 70 Pulse Ox 97 100 100 Oxygen Delivery Method Room Air Room Air 11/30/24 14:30 Temperature Temperature Source Pulse Rate 60 Respiratory Rate 18 Respiratory Effort Respiratory Depth Respiratory Pattern Blood Pressure 125/69 H Blood Pressure Mean 87 Pulse Ox 100 Oxygen Delivery Method Room Air MDM MDM MDM Narrative Medical decision making narrative: The differential diagnosis includes but not limited to intracranial hemorrhage versus closed head injury on anticoagulant versus forehead hematoma versus skullfracture versus positional vertigo versus dehydration versus orthostatic hypotension. I have low suspicion for ACS. Given her fall on anticoagulant, CT of the brain and of the cervical spine will be obtained to ruleout fracture or intracranial hemorrhage. Chest x-ray will be obtained as well as CBC, CMP. EKG obtained interpreted by myself independently as a paced rhythm at [address] changes. No STEMI. Her CMP hemolyzed multiple times. However, on this review BUN of 26 and creatinine 1.15, normal sodium, normal potassium and normal chloride. LFTs are grossly unremarkable. CBC shows slightneutropenia at 4.0. When compared to prior labs she has had neutropenia in the past. Hemoglobin 15.6, hematocrit 45.8. Platelet count low at 124. I do not feel she requires platelet transfusion. I reviewed the radiology report of the CT of the brain and there is no evidence of skull fracture or acute intracranial hemorrhage. Additionally on review of the CT report of the cervical spine, there are degenerative changes but once again no evidence of an acute fracture. Chest x-ray interpreted by myself independently shows bibasilar atelectasis but no consolidation or pneumothorax. There is small right pleural effusion. I reviewed the radiology report which confirms my independent interpretation. With the thought that she may have positional vertigo, she was given meclizine. However, on repeat examination she was unable to ambulate. I then discussed thepatient with Dr. Thornton. She will be assigned observation on the general medical floor. Disposition is assigned observation in stable condition. History & Record Review Discussion w/independent historian: Patient Additional record(s) reviewed:: Prior labs Lab Data Attestation: I reviewed the patient's lab results. Labs: Laboratory Results - last 24 hr 11/30/24 11/30/24 11/30/24 10:49 12:27 13:28 WBC 4.0 L RBC 4.75 Hgb 15.6 H Hct 45.8 MCV 96.4 MCH 32.8 H MCHC 34.1 RDW Std Deviation 51.2 H RDW Coeff of Sharad 14.5 Plt Count 124 L MPV 12.0 Immature Gran % (Auto) 0.300 Neut % (Auto) 52.8 Lymph % (Auto) 27.5 [place] % (Auto) 17.9 H Eos % (Auto) 1.0 Baso % (Auto) 0.5 Absolute Neuts (auto) 2.1 Absolute Lymphs (auto) 1.09 Nucleated RBC % 0 Sodium Cancelled Cancelled 139 Potassium Cancelled Cancelled 4.1 Chloride Cancelled Cancelled 104 Carbon Dioxide Cancelled Cancelled 22.4 Anion Gap Cancelled Cancelled 13 BUN Cancelled Cancelled 26 H Creatinine Cancelled Cancelled 1.15 Estim Creat Clear Calc Cancelled Cancelled 27.44 L Est GFR (MDRD) Non-Af Cancelled Cancelled 46 L BUN/Creatinine Ratio Cancelled Cancelled 22.7 H Glucose Cancelled Cancelled 105 H Calcium Cancelled Cancelled 8.7 Total Bilirubin Cancelled Cancelled 0.65 AST Cancelled Cancelled 23 ALT Cancelled Cancelled 22 Alkaline Phosphatase Cancelled Cancelled 45 Total Protein Cancelled Cancelled 5.7 L Albumin Cancelled Cancelled 3.5 Globulin Cancelled Cancelled 2.2 Albumin/Globulin Ratio Cancelled Cancelled 1.5 Radiography Chest X-Ray - ED: 1 View, Read by ED Physician, Read by Radiologist, No Acute Disease, Right Effusion and - (Bibasilar atelectasis) Diagnostic Testing: Clinical Impression(s) from Imaging Studies Chest X-Ray 11/30/24 10:56 IMPRESSION: Hyperinflation. Blunting of the right costophrenic angle with small right pleural effusion and bibasilar atelectasis. Reading Location: [id number] Brain CT 11/30/24 11:07 IMPRESSION: CHRONIC CHANGES. NO ACUTE FINDINGS. Reading Location: [id number] Cervical Spine CT 11/30/24 11:07 IMPRESSION: Multilevel degenerative changes with facet joint osteoarthritis and hypertrophy as described. Stable anterior subluxation/listhesis of C4 on C5 and C5 on C6. Stable soft tissue density in the anterior aspect of the right lung apex. Reading Location: [id number] Management Discussion w/another healthcare provider: Hospitalist (Dr. Thornton) Discharge Plan Dx/Rx/DC Orders Clinical Impression: Dizziness, Fall, Traumatic hematoma of forehead, Closed head injury, Anticoagulant long-term use, Paresthesias Disposition Disposition: Acute Care Hospital [facility] What to do if you have Problems For any increased pain, shortness of breath, bleeding, nausea or vomiting, chestpain, or any unexpected problems, contact your Primary Care Provider. Call [facility] ([phone]) or report tothe closest Emergency Room. Call 911 if necessary. 11/30/24 1505 Cosigner Signature (if applicable): CC: Dr. Linda Mao MD ~ Signed [facility]07-31-2025 Discharge summary Author [facility] Note Date/Time November 30, 2024 3:05 pm [facility] Medical Records Department [address] [place] [address] Emergency Department Summary 11/30/24 MR#: [id number] Acct: [id number] Name: ROBERTO FERGUSON Rep #:[id number] : 1935 89 From: Nikos Lake MD PCP: Dr. Linda Mao MD Status :REG ER Location: ED HPI History of Present Illness Chief Complaint: Fall Narrative Narrative: 89-year-old female past medical history of coronary artery disease and pacemakerpresents with dizziness and lightheadedness which caused her to fall this morning. She states that she got up at around 530 this morning, approximately 5hours ago, and was attempting to ambulate to the bathroom. She states that she usually gets up and is somewhat groggy and has to hold onto the paredes. When shestands, she states she feels whooshing in her head, and feels very dizzy and lightheaded. She fell today because of the dizziness and struck her right forehead. She does take Eliquis for coronary artery disease and pacemaker. Shedenies loss of consciousness afterwards. Currently, she states that she has numbness of both feet and hands, but is not complete numbness. She was unable to stand up fully. She states that after she had fallen she crawled to her sofa, and climbed up onto the couch. She laid there for a bit, but was unable to call her daughter because her phone was in the bedroom. She crawled to the bedroom, called her daughter, and later down and fell asleep for few hours but she still feels lightheadedness and dizziness, especially when she moves her head or sits up. [facility] Medical History Shingles Atrial tachycardia Presence of permanent cardiac pacemaker CKD (chronic kidney disease) stage 3, GFR 30-59 ml/min Non-rheumatic mitral regurgitation Mitral valve insufficiency Rheumatoid arthritis STEMI (ST elevation myocardial infarction) Atherosclerosis of coronary artery of the [place] heart without angina pectoris History of coronary [...] Medications ?Medication ?Instructions ?Recorded ?Last Taken ?Type acetaminophen 500 mg tablet 1,000 mg PO BID pain 04/1205/16/20 History levothyroxine 75 mcg tablet 100 mcg PO DAILY thyroid 1 06/07/22 05/07/23 History calcium carbonate 1,000 mg PO DAILY@0800 PRN 1 06/08/22 Unknown History indigestion dapagliflozin propanediol 10 mg 10 [...] tablet 40 mg PO QDAY #30 tabs 07/26 Unknown Rx apixaban 2.5 mg tablet 2.5 mg PO BID #180 tabs 08/31 07/25 Unknown Rx mirtazapine 30 mg tablet 45 mg PO DAILY 09/12/24 Unkn own History sacubitril 24 mg-valsartan 26 mg 1 tab PO BID #180 tab s 09/12/24 Unknown Rx tablet (Entresto) Allergy/AdvReac Type Severity Reaction Status Date / Time ticagrelor (From Brilinta) AdvReac Severe Severe Verified 11/30/24 10:43 dyspnea on exertion Family History Father Clotting [...] not use caffeine: Yes ROS ROS ED ROS Narrative Review of systems positive for lightheadedness and dizziness causing fall. Positive trauma to right forehead/ecchymosis and swelling. Dizziness and lightheadedness worse when sits up or moves head [id number]. Positive numbness of bilateral hands and feet. No neck pain. Able to move all extremities but not stand straight up. EXAM Physical Exam Narrative Exam Narrative: GCS 15. ABCs intact. Cardiovascular examination reveals regular rate and rhythm. Lungs are clear to auscultation bilaterally. Abdomen is soft and nontender with positive bowel sounds. No guarding or rebound. Neurological examination is nonfocal and nonlateralizing. Able to move all extremities. HEENT examination shows mild ecchymosis on right forehead with minimal swelling,no crepitance. No vertebral point tenderness or bony step-off. Full range of motion of neck. Const Vital Signs: 11/30/24 10:38 11/30/24 10:44 11/30/24 11:15 Temperature 97.3 F L Temperature Source Axillary Pulse Rate 61 60 Respiratory Rate 16 17 Respiratory Effort Normal Respiratory Depth Normal Respiratory Pattern Normal Blood Pressure 121/51 H 107/46 L Blood Pressure Mean 74 66 Pulse Ox 94 100 Oxygen Delivery Method Room Air Room Air Room Air 11/30/24 11:30 11/30/24 12:00 11/30/24 12:30 Temperature Temperature Source Pulse Rate 60 60 60 Respiratory Rate 18 16 18 Respiratory Effort Respiratory Depth Respiratory Pattern Blood Pressure 111/53 L 107/54 L 106/48 L Blood Pressure Mean 72 71 67 Pulse Ox 100 100 100 Oxygen Delivery Method Room Air Room Air Room Air 11/30/24 13:00 11/30/24 13:30 11/30/24 14:00 Temperature Temperature Source Pulse Rate 60 60 60 Respiratory Rate 25 H 18 16 Respiratory Effort Respiratory Depth Respiratory Pattern Blood Pressure 113/47 L 106/58 L 104/53 L Blood Pressure Mean 69 74 70 Pulse Ox 97 100 100 Oxygen Delivery Method Room Air Room Air 11/30/24 14:30 Temperature Temperature Source Pulse Rate 60 Respiratory Rate 18 Respiratory Effort Respiratory Depth Respiratory Pattern Blood Pressure 125/69 H Blood Pressure Mean 87 Pulse Ox 100 Oxygen Delivery Method Room Air MDM MDM MDM Narrative Medical decision making narrative: The differential diagnosis includes but not limited to intracranial hemorrhage versus closed head injury on anticoagulant versus forehead hematoma versus skullfracture versus positional vertigo versus dehydration versus orthostatic hypotension. I have low suspicion for ACS. Given her fall on anticoagulant, CT of the brain and of the cervical spine will be obtained to rule out fracture or intracranial hemorrhage. Chest x-ray will be obtained as well as CBC, CMP. EKG obtained interpreted by myself independently as a paced rhythm at [address] changes. No STEMI. Her CMP hemolyzed multiple times. However, on this review BUN of 26 and creatinine 1.15, normal sodium, normal potassium and normal chloride. LFTs are grossly unremarkable. CBC shows slightneutropenia at 4.0. When compared to prior labs she has had neutropenia in the past. Hemoglobin 15.6, hematocrit 45.8. Platelet count low at 124. I do not feel she requires platelet transfusion. I reviewed the radiology report of the CT of the brain and there is no evidence of skull fracture or acute intracranial hemorrhage. Additionally on review of the CT report of the cervical spine, there are degenerative changes but once again no evidence of an acute fracture. Chest x-ray interpreted by myself independently shows bibasilar atelectasis but no consolidation or pneumothorax. There is small right pleural effusion. I reviewed the radiology report which confirms my independent interpretation. With the thought that she may have positional vertigo, she was given meclizine. However, on repeat examination she was unable to ambulate. I then discussed thepatient with Dr. Thornton. She will be assigned observation on the general medical floor. Disposition is assigned observation in stable condition. History & Record Review Discussion w/independent historian: Patient Additional record(s) reviewed:: Prior labs Lab Data Attestation: I reviewed the patient's lab results. Labs: Laboratory Results - last 24 hr 11/30/24 11/30/24 11/30/24 10:49 12:27 13:28 WBC 4.0 L RBC 4.75 Hgb 15.6 H Hct 45.8 MCV 96.4 MCH 32.8 H MCHC 34.1 RDW Std Deviation 51.2 H RDW Coeff of Sharad 14.5 Plt Count 124 L MPV 12.0 Immature Gran % (Auto) 0.300 Neut % (Auto) 52.8 Lymph % (Auto) 27.5 [place] % (Auto) 17.9 H Eos % (Auto) 1.0 Baso % (Auto) 0.5 Absolute Neuts (auto) 2.1 Absolute Lymphs (auto) 1.09 Nucleated RBC % 0 Sodium Cancelled Cancelled 139 Potassium Cancelled Cancelled 4.1 Chloride Cancelled Cancelled 104 Carbon Dioxide Cancelled Cancelled 22.4 Anion Gap Cancelled Cancelled 13 BUN Cancelled Cancelled 26 H Creatinine Cancelled Cancelled 1.15 Estim Creat Clear Calc Cancelled Cancelled 27.44 L Est GFR (MDRD) Non-Af Cancelled Cancelled 46 L BUN/Creatinine Ratio Cancelled Cancelled 22.7 H Glucose Cancelled Cancelled 105 H Calcium Cancelled Cancelled 8.7 Total Bilirubin Cancelled Cancelled 0.65 AST Cancelled Cancelled 23 ALT Cancelled Cancelled 22 Alkaline Phosphatase Cancelled Cancelled 45 Total Protein Cancelled Cancelled 5.7 L Albumin Cancelled Cancelled 3.5 Globulin Cancelled Cancelled 2.2 Albumin/Globulin Ratio Cancelled Cancelled 1.5 Radiography Chest X-Ray - ED: 1 View, Read by ED Physician, Read by Radiologist, No Acute Disease, Right Effusion and - (Bibasilar atelectasis) Diagnostic Testing: Clinical Impression(s) from Imaging Studies Chest X-Ray 11/30/24 10:56 IMPRESSION: Hyperinflation. Blunting of the right costophrenic angle with small right pleural effusion and bibasilar atelectasis. Reading Location: [id number] Brain CT 11/30/24 11:07 IMPRESSION: CHRONIC CHANGES. NO ACUTE FINDINGS. Reading Location: [id number] Cervical Spine CT 11/30/24 11:07 IMPRESSION: Multilevel degenerative changes with facet joint osteoarthritis and hypertrophy as described. Stable anterior subluxation/listhesis of C4 on C5 and C5 on C6. Stable soft tissue density in the anterior aspect of the right lung apex. Reading Location: [id number] Management Discussion w/another healthcare provider: Hospitalist (Dr. Thornton) Discharge Plan Dx/Rx/DC Orders Clinical Impression: Dizziness, Fall, Traumatic hematoma of forehead, Closed head injury, Anticoagulant long-term use, Paresthesias Disposition Disposition: Acute Care [facility] What to do if you have Problems For any increased pain, shortness of breath, bleeding, nausea or vomiting, chestpain, or any unexpected problems, contact your Primary Care Provider. Call [facility] ([phone]) or report to the closest Emergency Room. Call 911 if necessary. 11/30/24 1505 <Electronically signed by Nikos Lake MD> Cosigner Signature (if applicable): CC: Dr. Linda Mao MD ~ Signed [facility] Work Phone: 1(180) 475-608307-31-2025 Radiology Diagnostic study note [facility] Imaging Services [address] [place], [place] [id number] Spine Cervical without Contras MR#: [id number] Acct: [id number] Name: ROBERTO FERGUSON Rep #: [id number] : 1935 F 89 From: Jey Cardenas MD PCP: Dr. Linda Mao MD Status: REG ER Study:Spine Cervical without Contras Date of Exam: 11/30/24 Exam# [id number] Ordering Dr: Nikos Lake MD PROCEDURE: SPINE CERVICAL WITHOUT CONTRAS 11/30/2024 REASON FOR EXAM: TRAUMA TECHNIQUE: SPINE CERVICAL WITHOUT CONTRAS Coronal and Sagittal reconstruction series were provided. One or more dose reduction techniques were used (e.g., Automated exposure control, adjustment of the mA and/or kV according to patient size, use of iterative reconstruction technique. RADIATION DOSE SUMMARY: CTDlvol: 12.11 mGy DLP: 244.16 mGycm COMPARISON: Prior study dated July 23, 2024. FINDINGS: Alignment: Stable anterior listhesis of C4 on C5 and C5 on C6 most likely secondary to facet joint osteoarthritis. Vertebrae: Vertebral heights are well-maintained. Soft Tissues: No prevertebral soft tissue swelling. Other: Stable 2.6 cm x 2.2 cm mass in the anterior right lung apex. This may represent chronic scarring. This is unchanged. C1-2: Degenerative changes of the atlantoaxial joint. C2-3: Facet joint osteoarthritis and hypertrophy worse on the left side. No significant central canal stenosis. C3-4: Marked degree of hypertrophy of the facet joints. Uncovertebral arthrosisand bilateral neuralforaminal stenosis. C4-5: Stable anterior listhesis of C4 on C5 most likely secondary to the facet joint osteoarthritisand hypertrophy. C5-6: Stable anterior listhesis of C5 on C6 due to facet joint osteoarthritis and hypertrophy. C6-7: Marked degree of disc space narrowing and spondylosis. Facet joint osteoarthritis C7-T1: Unremarkable CT/Spine Cervical without Contras IMPRESSION: Multilevel degenerative changes with facet joint osteoarthritis and hypertrophy as described. Stable anterior subluxation/listhesis of C4 on C5 and C5 on C6. Stable soft tissue density in the anterior aspect of the right lung apex. Reading Location: [id number] CC: Dr. Nikos Lake MD; Dr. Linda Mao MD ~ Clamp Operator: Signed [facility]07-31-2025 Radiology Diagnostic study note [facility] Imaging Services [address], [place] [id number] Brain/Head without Contrast MR#: [id number] Acct: [id number] Name: ROBERTO FERGUSON Rep #: [id number] : 1935 F 89 From: Jey Cardenas MD PCP: Dr. Linda Mao MD Status: REG ER Study:Brain/Head without Contrast Date of Exa m: 11/30/24 Exam# [id number] Ordering Dr: Nikos Lake MD PROCEDURE: BRAIN/HEAD WITHOUT CONTRAST 11/30/2024 REASON FOR EXAM: TRAUMA, HEAD INJURY ON ANTICOAGULANTS TECHNIQUE: BRAIN/HEAD WITHOUT CONTRAST Coronal and Sagittal reconstruction series were provided. One or more dose reduction techniques were used (e.g., Automated exposure control, adjustment of the mA and/or kV according to patient size, use of iterative reconstruction technique. RADIATION DOSE SUMMARY: CTDlvol: 44.99 mGy DLP: 812.98 mGycm COMPARISON: Prior study dated July 23, 2024. FINDINGS: Brain: Low density in the periventricular white matter suggests mild chronic small vessel ischemic changes. CSF Spaces: Moderate generalized cerebral atrophy Sinuses/Mastoids: Clear at visualized levels Bones: No fracture seen. CT/Brain/Head without Contrast IMPRESSION: CHRONIC CHANGES. NO ACUTE FINDINGS. Reading Location: [facility] CC: Dr. Nikos Lake MD; Dr. Linda Mao MD ~ Clamp Operator: Signed [facility]07-31-2025 Radiology Diagnostic study note [facility] Imaging Services [address] [place] [id number] Chest 1 View (Portable) MR#: [id number] Acct: [id number] Name: ROBERTO FERGUSON Rep #: [id number] : 1935 F 89 From: Jey Cardenas MD PCP: Dr. Linda Mao MD Status: REG ER Study:Chest 1 View (Portable) Date of Exam: 11/30/24 Exam# [id number] Ordering Dr: Nikos Lake MD PROCEDURE: CHEST 1 VIEW (PORTABLE) 11/30/2024 REASON FOR EXAM: CORONARY ARTERY DISEASE TECHNIQUE: Frontal view of the chest. COMPARISON: Prior study dated July 21, 2024. FINDINGS: Hardware: EKG electrodes are seen. Left-sided dual-chamber pacemaker is present. A left-sided port a catheter is seen with the tip in the superior vena cava. Heart: Heart size is mildly enlarged. Lungs: Blunting of the right costophrenic angle mild degree of bibasilar atelectasis more prominentat the right lung base. Calcified right pleural plaques. Bones: Degenerative changes are identified within the thoracic spine. Other: RAD/Chest 1 View (Portable) IMPRESSION: Hyperinflation. Blunting of the right costophrenic angle with small right pleural effusion and bibasilar atelectasis. Reading Location: [id number] CC: Dr. Nikos Lake MD; Dr. Linda Mao MD ~ Clamp Operator: Signed [facility]05-13-2025 Evaluation note* Diagnosis Onset Date Resolution Status Admit Date Hyperlipidemia acute September 12, 2024 11:05am Nonischemic cardiomyopathy acute September 12, 2024 11:05am Pleural effusion, right acute M 2024 11:05am AF (paroxysmal atrial fibrillation) chronic September 12, 2024 1 1:05am Atherosclerosis of coronary artery of the [place] heart without angina pectoris chronic September 12, 2024 1 1:05am Presence of permanent cardia c pacemaker chronic September 12, 2024 1 1:05am [facility] Work Phone: 1(485) 110-344305-13-2025 Evaluation note* Diagnosis Onset Date Resolution Status Admit Date Hyperlipidemia acute September 12, 2024 11:05am Nonischemic cardiomyopathy acute September 12, 2024 11:05am AF (paroxysmal atrial fibrillation) chronic September 12, 2024 1 1:05am Atherosclerosis of coronary artery of [place] heart without angina pectoris chronic September 12, 2024 1 1:05am Pleural effusion, right chronic M 2024 11:05am Presence of permanent cardia c pacemaker chronic September 12, 2024 1 1:05am History of malignant neoplas m of right breast chronic October 23, 2024 12:19pm Mass of upper lobe of right lung chr onic October 23, 2024 12:19pm Pleural effusion, right chronic J une 2024 12:19pm [facility] Work Phone: 1(274) 922-814905-13-2025 Evaluation note* Diagnosis Onset Date Resolution Status Admit Date Hyperlipidemia acute September 12, 2024 11:05am Nonischemic cardiomyopathy acute September 12, 2024 11:05am AF (paroxysmal atrial fibrillation) chronic September 12, 2024 1 1:05am Atherosclerosis of coronary artery of [place] heart without angina pectoris chronic September 12, 2024 1 1:05am Pleural effusion, right chronic M ay 2024 11:05am Presence of permanent cardia c pacemaker chronic September 12, 2024 1 1:05am History of malignant neoplas m of right breast chronic October 23, 2024 12:19pm Mass of upper lobe of right lung chr onic October 23, 2024 12:19pm Pleural effusion, right chronic J une 2024 12:19pm Anticoagulant long-term use acute November 30, 2024 2:22pm Closed head injury acute November 022024 2:22pm Dizziness acute November 30 2:22pm Fall acute November 30 2:22pm Paresthesias acute November 30, 2 025 2:22pm Traumatic hematoma of forehead acute November 30, 2024 2:22pm [facility] Work Phone: 1(149) 384-188805-13-2025 Evaluation note* Diagnosis Onset Date Resolution Status Admit Date Hyperlipidemia acute September 12, 2024 11:05am Nonischemic cardiomyopathy acute September 12, 2024 11:05am AF (paroxysmal atrial fibrillation) chronic September 12, 2024 11:05am Atherosclerosis of coronary artery of [place] heart without angina pectoris chronic August 11:05am Pleural effusion, right chronic M ay 2024 11:05am Presence of permanent cardiac pacemaker chronic September 12, 2024 11:05am History of malignant neoplasm of right breast chronic October 232024 12:19pm 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 October 23, 2024 12:19pm Pleural effusion, right chronic J une 2024 12:19pm Anticoagulant long-term use acute December 02, 2024 5:28pm Closed head injury acute December 02, 2024 5:28pm Complete heart block acute st 2024 5:28pm Congestive heart failure (CHF) acute December 02, 2024 5:28pm Dizziness acute December 02 5:28pm Fall acute December 02 5:28pm Hyperlipidemia acute December 5:28pm Non-rheumatic mitral regurgitation acute December 02, 2024 5:28pm Pacemaker acute December 02 5:28pm Paresthesias acute December 02, 2024 5:28pm Traumatic hematoma of forehead acute December 02, 2024 5:28pm AF (paroxysmal atrial fibrillation) chronic December 02, 2024 5:28pm History of coronary artery stent placement April 12, 2020 chronic December 02, 2024 5:28pm Atrial fibrillation acute t 2024 10:37am Complete heart block acute 2024 10:37am Nonischemic cardiomyopathy acute December 04, 2024 10:37am Pacemaker acute December 04 10:37am Presence of permanent cardiac pacemaker chronic December 04 10:37am [facility] Work Phone: 1([phone]) 686-343905-13-2025 Evaluation note* Diagnosis Onset Date Resolution Status Admit Date Hyperlipidemia acute September 12, 2024 11:05am Nonischemic cardiomyopathy acute September 12, 2024 11:05am AF (paroxysmal atrial fibrillation) chronic September 12, 2024 11:05am Atherosclerosis of coronary artery of [place] heart without angina pectoris chronic August 11:05am Pleural effusion, right chronic M ay 2024 11:05am Presence of permanent cardiac pacemaker chronic September 12, 2024 11:05am History of malignant neoplasm of right breast chronic October 232024 12:19pm 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 October 23, 2024 12:19pm Pleural effusion, right chronic J une 2024 12:19pm Anticoagulant long-term use acute December 02, 2024 4:07pm Closed head injury acute December 02, 2024 4:07pm Complete heart block acute 2024 4:07pm Congestive heart failure (CHF) acute December 02, 2024 4:07pm Fall acute December 02 4:07pm Hyperlipidemia acute December 4:07pm Non-rheumatic mitral regurgitation acute December 02, 2024 4:07pm Pacemaker acute December 02 4:07pm Paresthesias acute December 02, 2024 4:07pm Traumatic hematoma of forehead acute December 02, 2024 4:07pm AF (paroxysmal atrial fibrillation) chronic December 02, 2024 4:07pm History of coronary artery stent placement April 12, 2020 chronic December 02, 2024 4:07pm Dizziness resolved December 02 4:07pm Atrial fibrillation acute Augus t 2024 10:37am Complete heart block acute Augu st 2024 10:37am Nonischemic cardiomyopathy acute December 04, 2024 10:37am Pacemaker acute December 04 10:37am Presence of permanent cardiac pacemaker chronic December 04 10:37am [facility] Work Phone: 1([phone]) 250-285105-13-2025 Evaluation note* Diagnosis Onset Date Resolution Status Admit Date Hyperlipidemia acute September 12, 2024 11:05am Nonischemic cardiomyopathy acute September 12, 2024 11:05am AF (paroxysmal atrial fibrillation) chronic September 12, 2024 11:05am Atherosclerosis of coronary artery of [place] heart without angina pectoris chronic August 11:05am Pleural effusion, right chronic M ay 2024 11:05am Presence of permanent cardiac pacemaker chronic September 12, 2024 11:05am History of malignant neoplasm of right breast chronic October 232024 12:19pm 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 October 23, 2024 12:19pm Pleural effusion, right chronic J une 2024 12:19pm Anticoagulant long-term use acute December 02, 2024 4:07pm Closed head injury acute December 02, 2024 4:07pm Complete heart block acute Decu st 2024 4:07pm Congestive heart failure (CHF) acute December 02, 2024 4:07pm Fall acute December 02 4:07pm Hyperlipidemia acute December 4:07pm Non-rheumatic mitral regurgitation acute December 02, 2024 4:07pm Pacemaker acute December 02 4:07pm Paresthesias acute December 02, 2024 4:07pm Traumatic hematoma of forehead acute December 02, 2024 4:07pm AF (paroxysmal atrial fibrillation) chronic December 02, 2024 4:07pm History of coronary artery stent placement April 12, 2020 chronic December 02, 2024 4:07pm Dizziness resolved December 02 4:07pm Atrial fibrillation acute Augus t 2024 10:37am Complete heart block acute st 2024 10:37am Nonischemic cardiomyopathy acute December 04, 2024 10:37am Pacemaker acute December 04 10:37am Presence of permanent cardiac pacemaker chronic December 04 10:37am Kyphosis of cervical region acute December 19, 2024 9:51am Spondylolisthesis, cervical region acute December 19 9:51am Cervical radiculopathy noneactive Au [facility] 2024 9:51am [facility] Work Phone: 1(306) 313-982305-13-2025 Evaluation note* Diagnosis Onset Date Resolution Status Admit Date Hyperlipidemia acute September 12, 2024 11:05am Nonischemic cardiomyopathy acute September 12, 2024 11:05am AF (paroxysmal atrial fibrillation) chronic September 12, 2024 11:05am Atherosclerosis of coronary artery of [place] heart without angina pectoris chronic August 11:05am Pleural effusion, right chronic 2024 11:05am Presence of permanent cardiac pacemaker chronic September 12, 2024 11:05am History of malignant neoplasm of right breast chronic October 232024 12:19pm 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 October 23, 2024 12:19pm Pleural effusion, right chronic J [facility] 2024 12:19pm Anticoagulant long-term use acute December 02, 2024 4:07pm Closed head injury acute December 02, 2024 4:07pm Complete heart block acute 2024 4:07pm Congestive heart failure (CHF) acute December 02, 2024 4:07pm Fall acute December 02 4:07pm Hyperlipidemia acute December 4:07pm Non-rheumatic mitral regurgitation acute December 02, 2024 4:07pm Pacemaker acute December 02 4:07pm Paresthesias acute December 02, 2024 4:07pm Traumatic hematoma of forehead acute December 02, 2024 4:07pm AF (paroxysmal atrial fibrillation) chronic December 02, 2024 4:07pm History of coronary artery stent placement April 12, 2020 chronic December 02, 2024 4:07pm Dizziness resolved December 02 4:07pm Atrial fibrillation acute Augus t 2024 10:37am Complete heart block acute Decu st 2024 10:37am Nonischemic cardiomyopathy acute December 04, 2024 10:37am Pacemaker acute December 04 10:37am Presence of permanent cardiac pacemaker chronic December 04 10:37am Kyphosis of cervical region acute December 19, 2024 9:51am Spondylolisthesis, cervical region acute December 19 9:51am Cervical radiculopathy noneactive Au henry 2024 9:51am Hyperlipidemia acute December 9:36am Hypotension acute December 27, 2024 9:36am Nonischemic cardiomyopathy acute December 27, 2024 9:36am AF (paroxysmal atrial fibrillation) chronic December 27 9:36am Atherosclerosis of coronary artery of [place] heart without angina pectoris chronic December 022024 9:36am Pleural effusion, right chronic A ugust 2024 9:36am Presence of permanent cardiac pacemaker chronic December 27, 9:36am [facility] Work Phone: 1(439) 732-696003-23-2025 Discharge summary [facility] Medical Records Department [address] [place] [address] Emergency Department Summary 07/23/24 MR#: [id number] Acct: [id number] Name: ROBERTO FERGUSON Rep #:[id number] : 1935 88 From: Anant Cooper [...] chest pain or shortness of breath. Patient deniesurologic symptoms however she does not have a good memory. Prior similar symptoms: Yes Recent Illness/Hospitalization: No PFSH [facility] Medical History Atrial tachycardia Presence of permanent cardiac pacemaker CKD (chronic kidney disease) stage 3, GFR 30-59 ml/min Non-rheumatic mitral regurgitation Mitral valve insufficiency Rheumatoid arthritis STEMI (ST elevation myocardial infarction) Atherosclerosis of coronary artery of the [place] heart without angina pectoris History of coronary [...] to inspection, nondistended, normoactive bowel sounds, non-tender, non- distended and no masses; Negative for hepatosplenomegaly GI [...] hasbeen by orbital ecchymosis. There is no Eaton sign. There is no CSF otorrhea or rhinorrhea. C-spine was obtained since C-spine cannot be cleared and her pain started after falls. Daughter is concernedof UTI. Will obtain UA as wellas baseline blood work i.e. BMP and CBC. History & Record Review Additional record(s) reviewed:: Prior outpatient record (Patient has seen Dr. Matteo Hanks for malignancy of right breast. She also has had pulmonary effusions requiring thoracentesis. She is seen bycardiac.), Prior ED visit andPrior labs Lab Data [...] 84.1 H Lymph % (Auto) 5.7 L [place] % (Auto) 9.5 Eos % (Auto) 0.0 [...] Clarity Clear Urine pH 5.0 Ur Specific Interior 1.015 Urine Protein 30 H Urine Glucose [...] fracture site is evident. Reading Location: [address] Cervical Spine CT 07/23/24 14:41 IMPRESSION: 1. No fracture is noted. 2. Stable subluxation compared to the prior CT examination of 08/19/2022. 3. Degenerative changes are again noted, fairly similar to the prior examination. Reading Location: [address] of the head without contrast reveals no evidence of epidural hematoma, subdural hematoma, traumatic subarachnoid hemorrhage or intraparenchymal contusion. There is significant atrophy possible oldprior left sided stroke. There is no fluid [...] neoplasm of right breast, History of coronary arterystent placement, Anticoagulant long-term use, Frequent falls, Cervical myofascial strain, Traumaticperiorbital ecchymosis of left eye, Traumatic periorbital ecchymosis [...] Care Provider] - As Needed Print Language: Macanese Disposition Disposition: Home, Self Care What to do if you have Problems For any increased pain, shortness of breath, bleeding, nausea or vomiting, chestpain, or any unexpected problems, contact your Primary Care Provider. Call [facility] ([phone]) or report tothe closest Emergency Room. Call 911 if necessary. 07/23/24 1818 Cosigner Signature (if applicable): CC: Dr. Teagan Hall MD ~ Signed [facility]03-23-2025 Radiology Diagnostic study note [facility] Imaging Services [address] [place] [address] Spine Cervical without Contras MR#: [id number] Acct: [id number] Name: ROBERTO FERGUSON Rep #: [id number] : 1935 F 88 From: Tomas Holt MD PCP: Dr. Teagan Hall MD Status: REG ER Study:Spine Cervical without Contras Date of Exam: 07/23/24 Exam# [id number] Ordering Dr: Shyla Cooper MD PROCEDURE: SPINE [...] C5 and of C5 upon C6, compared withthe prior examination 08/19/2022.. Vertebrae: Degenerative changes are [...] similar to the prior examination. Reading Location: [id number] CC: Dr. Teagan Hall MD; Dr. Anant Cooper MD ~ Clamp Operator: Signed [facility]03-23-2025 Radiology Diagnostic study note [facility] Imaging Services [address] [facility] [place] [address] Brain/Head without Contrast MR#: [id number] Acct: [id number] Name: ROBERTO FERGUSON Rep #: [id number] : 1935 F 88 From: Tomas Holt MD PCP: Dr. Teagan Hall MD Status: REG ER Study:Brain/Head without Contrast Date of Exa m: 07/23/24 Exam# [id number] Ordering Dr: Shyla Cooper MD PROCEDURE: BRAIN/HEAD [...] No fracture site is evident. Reading Location: [id number] CC: Dr. Teagan Hall MD; Dr. Anant Cooper MD ~ Clamp Operator: Signed [facility]03-23-2025 Discharge summary Author Anant Cooper [facility] Note Date/Time July 23, 2024 6:1 8pm [facility] Medical Records Department [address] [place] [address] Emergency Department Summary 07/23/24 MR#: [id number] Acct: [id number] Name: ROBERTO FERGUSON Rep #:[id number] : 1935 88 From: Anant Cooper [...] myocardial infarction) Atherosclerosis of coronary artery of the [place] heart without angina pectoris History of coronary [...] hasbeen by orbital ecchymosis. There is no Eaton sign. There is no CSF otorrhea or [...] 84.1 H Lymph % (Auto) 5.7 L [place] % (Auto) 9.5 Eos % (Auto) 0.0 [...] Clarity Clear Urine pH 5.0 Ur Specific Interior 1.015 Urine Protein 30 H Urine Glucose [...] No fracture site is evident. Reading Location: [id number] Cervical Spine CT 07/23/24 14:41 IMPRESSION: 1. No fracture is noted. 2. Stable subluxation compared to the prior CT examination of 08/19/2022. 3. Degenerative changes are again noted, fairly similar to the prior examination. Reading Location: [address] of the head without contrast [...] Care Provider] - As Needed Print Language: Macanese Disposition Disposition: Home, Self Care What to do if you have Problems For any increased pain, shortness of breath, bleeding, nausea or vomiting, chestpain, or any unexpected problems, contact your Primary Care Provider. Call [facility] ([phone]) or report to the closest Emergency Room. Call 911 if necessary. 07/23/241817 <Electronically signed by Anant Cooper MD> Cosigner Signature (if applicable): CC: Dr. Teagan Hall MD ~ Signed [facility] Work Phone: 1(694) 308-453403-21-2025 Radiology Diagnostic study note [facility] Imaging Services [address] [place] [address] [id number] Chest PA and Lateral MR#: [id number] Acct: [id number] Name: ROBERTO FERGUSON Rep #: [id number] : 1935 F 88 From: Doris Graf MD PCP: Dr. Teagan Hall MD Status: REG CLI Study:Chest PA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 Diagnosis Onset Date Resolution Status Chest pain, unspecified acut e COLE (dyspnea on exertion) [place] Double vision acute Hyperlipidemia acute Atherosclerosis of coronary artery of the [place] heart without angina pectoris chronic History of coronary artery stent placement April 122019 chronic Mass of upper lobe of right lung acute Pleural effusion, right acut e History of malignant neoplasm of right breast chronic [facility] Work Phone: Evaluation note* Diagnosis Lung mass- Primary Swelling, mass, or lump in chest History of breast cancer Personal history of malignant neoplasm of breast Rheumatoid arthritis with inflammatory polyarthropathy (HCC) documented in this encounter [facility] note* Diagnosis Onset Date Resolution Status Chest pain, unspecified acut e COLE (dyspnea on exertion) [place] Double vision acute Hyperlipidemia acute Atherosclerosis of coronary artery of the [place] heart without angina pectoris chronic History of [...] of malignant neoplasm of right breast chronic [facility] Work Phone: Evaluation note* Diagnosis Onset Date [...] of malignant neoplasm of right breast chronic [facility] Work Phone: Evaluation note* Diagnosis Onset Date Resolution Status Mass of upper lobe of right lung acute Pleural effusion, right acut e History of malignant neoplasm of right breast chronic Mass of upper lobe of right lung acute Pleural effusion, right acut e History of malignant neoplasm of right breast chronic History of malignant neoplasm of right breast chronic Osteopenia chronic [facility] Work Phone: Evaluation note* Diagnosis Onset Date [...] chronic Osteopenia chronic Orthostatic hypotension acut e [facility] Work Phone: Evaluation note* Diagnosis Lung nodule- Primary Other diseases of lung, not elsewhere classified Pleural effusion Unspecified pleural effusion COLE (dyspnea on exertion) Other dyspnea and respiratory abnormality [facility] Diagnosis Onset Date Resolution Status [...] of malignant neoplasm of right breast chronic [facility] Work Phone: Evaluation note* Diagnosis Onset Date [...] Hyperlipidemia acute Atherosclerosis of coronary artery of the [place] heart without angina pectoris chronic [facility] Work Phone: Evaluation note* Diagnosis Onset Date Resolution Status History of malignant neoplasm of right breast chronic Osteopenia chronic Orthostatic hypotension reso lved Mass of upper lobe of right lung acute Pleural effusion, right acut e History of malignant neoplasm of right breast chronic Hyperlipidemia acute AF (paroxysmal atrial fibrillation) chronic Atherosclerosis of coronary artery of the [place] heart without angina pectoris chronic Malfunction of peripheral inserted central catheter acute COLE (dyspnea on exertion) [place] Hyperlipidemia acute Nonischemic cardiomyopathy a cute Pleural effusion, right acut e AF (paroxysmal atrial fibrillation) chronic Atherosclerosis of coronary artery of the [place] heart without angina pectoris chronic Hyperlipidemia acute Nonischemic cardiomyopathy a cute Pleural effusion, right acut e AF (paroxysmal atrial fibrillation) chronic Atherosclerosis of coronary artery of the [place] heart without angina pectoris chronic [facility] Work Phone: Evaluation note* Diagnosis Onset Date Resolution Status History of malignant neoplasm of right breast chronic Osteopenia chronic Orthostatic hypotension reso lved Mass of upper lobe of right lung acute Pleural effusion, right acut e History of malignant neoplasm of right breast chronic Hyperlipidemia acute AF (paroxysmal atrial fibrillation) chronic Atherosclerosis of coronary artery of the [place] heart without angina pectoris chronic Malfunction of peripheral inserted central catheter acute COLE (dyspnea on exertion) [place] Hyperlipidemia acute Nonischemic cardiomyopathy a cute Pleural effusion, right acut e AF (paroxysmal atrial fibrillation) chronic Atherosclerosis of coronary artery of the [place] heart without angina pectoris chronic Hyperlipidemia acute Nonischemic cardiomyopathy a cute Pleural effusion, right acut e AF (paroxysmal atrial fibrillation) chronic Atherosclerosis of coronary artery of the [place] heart without angina pectoris chronic Pleural effusion, right acut e ASHLI (acute kidney injury) [place] Complete heart block acute Near syncope acute [facility] Work Phone: Evaluation note* Diagnosis Onset Date Resolution Status History of malignant neoplasm of right breast chronic Osteopenia chronic Orthostatic hypotension reso lved Mass of upper lobe of right lung acute Pleural effusion, right acut e History of malignant neoplasm of right breast chronic Hyperlipidemia acute AF (paroxysmal atrial fibrillation) chronic Atherosclerosis of coronary artery of the [place] heart without angina pectoris chronic Malfunction of peripheral inserted central catheter acute COLE (dyspnea on exertion) [place] Hyperlipidemia acute Nonischemic cardiomyopathy a cute Pleural effusion, right acut e AF (paroxysmal atrial fibrillation) chronic Atherosclerosis of coronary artery of the [place] heart without angina pectoris chronic Hyperlipidemia acute Nonischemic cardiomyopathy a cute Pleural effusion, right acut e AF (paroxysmal atrial fibrillation) chronic Atherosclerosis of coronary artery of the [place] heart without angina pectoris chronic Pleural effusion, right acut e ASHLI (acute kidney injury) [place] Complete heart block acute Hyponatremia acute Near syncope acute Nonischemic cardiomyopathy a cute AF (paroxysmal atrial fibrillation) chronic Atherosclerosis of coronary artery of the [place] heart without angina pectoris [facility] Work Phone: Evaluation note* Diagnosis Onset Date Resolution Status History of malignant neoplasm of right breast chronic Osteopenia chronic Orthostatic hypotension reso lved Mass of upper lobe of right lung acute Pleural effusion, right acut e History of malignant neoplasm of right breast chronic Hyperlipidemia acute AF (paroxysmal atrial fibrillation) chronic Atherosclerosis of coronary artery of the [place] heart without angina pectoris chronic Malfunction of peripheral inserted central catheter acute COLE (dyspnea on exertion) [place] Hyperlipidemia acute Nonischemic cardiomyopathy a cute Pleural effusion, right acut e AF (paroxysmal atrial fibrillation) chronic Atherosclerosis of coronary artery of the [place] heart without angina pectoris chronic Hyperlipidemia acute Nonischemic cardiomyopathy a cute Pleural effusion, right acut e AF (paroxysmal atrial fibrillation) chronic Atherosclerosis of coronary artery of the [place] heart without angina pectoris chronic Pleural effusion, right acut e ASHLI (acute kidney injury) [place] Complete heart block acute Hyponatremia acute Near syncope acute Nonischemic cardiomyopathy a cute AF (paroxysmal atrial fibrillation) chronic Atherosclerosis of coronary artery of the [place] heart without angina pectoris chronic Complete heart block acute Nonischemic cardiomyopathy a cute AF (paroxysmal atrial fibrillation) chronic Complete heart block acute Nonischemic cardiomyopathy a cute AF (paroxysmal atrial fibrillation) chronic Presence of permanent cardiac pacemaker chronic [facility] Work Phone: Evaluation note* Diagnosis Onset Date Resolution Status History of malignant neoplasm of right breast chronic Osteopenia chronic Orthostatic hypotension reso lved Mass of upper lobe of right lung acute Pleural effusion, right acut e History of malignant neoplasm of right breast chronic Hyperlipidemia acute AF (paroxysmal atrial fibrillation) chronic Atherosclerosis of coronary artery of the [place] heart without angina pectoris chronic Malfunction of peripheral inserted central catheter acute COLE (dyspnea on exertion) [place] Hyperlipidemia acute Nonischemic cardiomyopathy a cute Pleural effusion, right acut e AF (paroxysmal atrial fibrillation) chronic Atherosclerosis of coronary artery of the [place] heart without angina pectoris chronic Hyperlipidemia acute Nonischemic cardiomyopathy a cute Pleural effusion, right acut e AF (paroxysmal atrial fibrillation) chronic Atherosclerosis of coronary artery of the [place] heart without angina pectoris chronic Pleural effusion, right acut e ASHLI (acute kidney injury) [place] Complete heart block acute Hyponatremia acute Near syncope acute Nonischemic cardiomyopathy a cute AF (paroxysmal atrial fibrillation) chronic Atherosclerosis of coronary artery of the [place] heart without angina pectoris chronic Complete heart [...] fibrillation) chronic Atherosclerosis of coronary artery of the [place] heart without angina pectoris chronic Presence of permanent cardiac pacemaker [facility] Work Phone: Evaluation note* Diagnosis Onset Date Resolution Status Malfunction of peripheral inserted central catheter acute COLE (dyspnea on exertion) [place] Hyperlipidemia acute Nonischemic cardiomyopathy a cute Pleural effusion, right acut e AF (paroxysmal atrial fibrillation) chronic Atherosclerosis of coronary artery of the [place] heart without angina pectoris chronic Hyperlipidemia acute Nonischemic cardiomyopathy a cute Pleural effusion, right acut e AF (paroxysmal atrial fibrillation) chronic Atherosclerosis of coronary artery of the [place] heart without angina pectoris chronic Pleural effusion, right acut e ASHLI (acute kidney injury) [place] Complete heart block acute Hyponatremia acute Near syncope acute Nonischemic cardiomyopathy a cute AF (paroxysmal atrial fibrillation) chronic Atherosclerosis of coronary artery of the [place] heart without angina pectoris chronic Complete heart [...] fibrillation) chronic Atherosclerosis of coronary artery of the [place] heart without angina pectoris chronic Presence of permanent cardiac pacemaker chronic COLE (dyspnea on exertion) [place] Pleural effusion, right acut e [facility] Work Phone: Evaluation note* Diagnosis Onset Date Resolution Status COLE (dyspnea on exertion) [place] Hyperlipidemia acute Nonischemic cardiomyopathy a cute Pleural effusion, right acut e AF (paroxysmal atrial fibrillation) chronic Atherosclerosis of coronary artery of the [place] heart without angina pectoris chronic Hyperlipidemia acute Nonischemic cardiomyopathy a cute Pleural effusion, right acut e AF (paroxysmal atrial fibrillation) chronic Atherosclerosis of coronary artery of the [place] heart without angina pectoris chronic Pleural effusion, right acut e ASHLI (acute kidney injury) [place] Complete heart block acute Hyponatremia acute Near syncope acute Nonischemic cardiomyopathy a cute AF (paroxysmal atrial fibrillation) chronic Atherosclerosis of coronary artery of the [place] heart without angina pectoris chronic Complete heart [...] fibrillation) chronic Atherosclerosis of coronary artery of the [place] heart without angina pectoris chronic Presence of permanent cardiac pacemaker chronic COLE (dyspnea on exertion) [place] Pleural effusion, right acut e [facility] Work Phone: Evaluation note* Diagnosis Onset Date Resolution Status ASHLI (acute kidney injury) [place] Complete heart block acute Hyponatremia acute Near syncope acute Nonischemic cardiomyopathy a cute AF (paroxysmal atrial fibrillation) chronic Atherosclerosis of coronary artery of the [place] heart without angina pectoris chronic Complete heart [...] fibrillation) chronic Atherosclerosis of coronary artery of [place] heart without angina pectoris chronic Presence of permanent cardiac pacemaker chronic COLE (dyspnea on exertion) [place] Pleural effusion, right acut e COLE (dyspnea on exertion) [place] [facility] Work Phone: Evaluation note* Diagnosis Onset Date Resolution Status Complete heart block acute Near syncope acute Nonischemic cardiomyopathy a cute Presence of permanent cardiac pacemaker chronic Hyperlipidemia acute Nonischemic cardiomyopathy a cute Pleural effusion, right acut e AF (paroxysmal atrial fibrillation) chronic Atherosclerosis of coronary artery of the [place] heart without angina pectoris chronic Presence of permanent cardiac pacemaker chronic COLE (dyspnea on exertion) [place] Pleural effusion, right acut e COLE (dyspnea on exertion) ac [facility] Work Phone: Evaluation note* Diagnosis Onset Date Resolution Status Complete heart block acute Near syncope acute Nonischemic cardiomyopathy a cute Presence of permanent cardiac pacemaker chronic Hyperlipidemia acute Nonischemic cardiomyopathy a cute Pleural effusion, right acut e AF (paroxysmal atrial fibrillation) chronic Atherosclerosis of coronary artery of the [place] heart without angina pectoris chronic Presence of permanent cardiac pacemaker chronic COLE (dyspnea on exertion) [place] Pleural effusion, right acut e COLE (dyspnea on exertion) [place] History of malignant neoplasm of right breast chronic Osteopenia chronic Mass of upper lobe of right lung acute Pleural effusion, right acut e History of malignant neoplasm of right breast chronic Hyperlipidemia acute Nonischemic cardiomyopathy a cute Pleural effusion, right acut e AF (paroxysmal atrial fibrillation) chronic Atherosclerosis of coronary artery of [place] heart without angina pectoris chronic Presence of permanent cardiac pacemaker [facility] Work Phone: Evaluation note* Diagnosis Pulmonary lesion- Primary Other diseases of lung, not elsewhere classified Pleural effusion Unspecified pleural effusion [facility] Diagnosis Onset Date Resolution Status COLE (dyspnea on exertion) [place] Pleural effusion, right acut e COLE (dyspnea on exertion) [place] History of malignant neoplasm of right breast chronic Osteopenia chronic Mass of upper lobe of right lung acute Pleural effusion, right acut e History of malignant neoplasm of right breast chronic Hyperlipidemia acute Nonischemic cardiomyopathy a cute Pleural effusion, right acut e AF (paroxysmal atrial fibrillation) chronic Atherosclerosis of coronary artery of [place] heart without angina pectoris chronic Presence of permanent cardiac pacemaker chronic Pleural effusion, right acut e [facility] Work Phone: Hospital Discharge instructionsAdditional Instructions [facility]: [facility] Reason for referral (narrative)* Diagnostic Procedure Only (Routine) - Pending Review Specialty Diagnoses / Procedures Referred By Contac t Referred To Contact US IMAGING Diagnoses Wound dehiscence Decreased pedal pulses Procedures US ARTERIAL PVR LOWER NON-INVASIVE PHYSIOLOGIC STUDY EXTREMITY 3 YULS Marcus Mello DPM [address] [place] [address] Us Imaging Referral ID Status Reason Start Date Expiration Date Visits Requested Visits Authorized [id number] Pending Review Auto-Generat ed Referral 2 04/17/2023 [...] [address] [place] [address] Xr Imaging Referral ID Status Reason Start Date Expiration Date Visits Requested Visits Authorized [id number] Pending Review Auto-Generat ed Referral 2 04/17/2023 1 1 [facility]No reason for referral information [facility] Work Phone: Summary Purpose Family History No Family History Records Found Relationship Condition Age at Onset Recorded Date/T jossie father Coagulation disorder Unknown Cardiac disease Unknown Advance Directives No Advanced Directives Records Found Advance Directive Response Recorded Date/ Time Advance Directives on File Yes October 18, 2019 12:34pm Advance Directives Yes January 7:24am Living Will Yes January 02 7:24am Power of Gum Puller Yes January 02, 2021 7:24am Advance Directive Response Recorded Date/ Time Advance Directives Yes January 7:24am Living Will Yes January 02 7:24am Power of Gum Puller Yes January 02, 2021 7:24am Advance Directive Response Recorded Date/ Time Advance Directives Yes January 6:24am Living Will Yes January 02 6:24am Power of Gum Puller Yes January 02, 2021 6:24am Advance Directive Response Recorded Date/ Time Advance Directives on File Yes October 18, 2019 11:34am Advance Directives Yes January 6:24am Living Will Yes January 02 6:24am Power of Gum Puller Yes January 02, 2021 6:24am Advance Directive Response Recorded Date/ Time Name of Medical Power of Gum Puller JUDY HOST ETLER August 19, 2022 4:09pm Advance Directives Yes January 7:24am Living Will Yes August 19, 2022 4:09pm Power of Gum Puller Yes August 19 4:09pm Advance Directive Response Recorded Date/ Time Advance Directives on File Yes October 18, 2019 12:34pm Name of Medical Power of Gum Puller JUDY HOST ETLER August 19, 2022 4:09pm Advance Directives Yes January 7:24am Living Will Yes August 19, 2022 4:09pm Power of Gum Puller Yes August 19 4:09pm Advance Directive Response Recorded Date/ Time Advance Directives on File Yes October 18, 2019 12:34pm Name of Medical Power of Gum Puller JUDY HOST ETLER August 19, 2022 4:09pm Name of Medical Power of Gum Puller son- November 12, 2022 7:25am Advance Directives Yes January 7:24am Living Will Yes November 12, 2022 7:25am Power of Gum Puller Yes November 12 7:25am Advance Directive Response Recorded Date/ Time Advance Directives on File Yes October 18, 2019 12:34pm Name of Medical Power of Gum Puller son- November 12, 2022 7:25am Name of Medical Power of Gum Puller DAUGHTER January 03, 2023 10:52am Advance Directives Yes January 7:24am Living Will Yes January 03, 023 10:52am Power of Gum Puller Yes January 03, 2023 10:52am Advance Directive Response Recorded Date/ Time Advance Directives on File Yes October 18, 2019 12:34pm Name of Medical Power of Gum Puller son- November 12, 2022 7:25am Name of Medical Power of Gum Puller DAUGHTER January 03, 2023 3:56pm Advance Directives Yes January 7:24am Living Will Yes January 03 023 3:56pm Power of Gum Puller Yes January 03, 2023 3:56pm Advance Directive Response Recorded Date/ Time Advance Directives on File Yes October 18, 2019 12:34pm Name of Medical Power of Gum Puller son- November 12, 2022 7:25am Name of Medical Power of Gum Puller DAUGHTER January 03, 2023 3:56pm Name of Medical Power of Gum Puller ALIE January 06, 2023 1:16pm Advance Directives Yes January 7:24am Living Will Yes January 06 023 1:16pm Power of Gum Puller Yes January 06, 2023 1:16pm Advance Directive Response Recorded Date/ Time Advance Directives on File Yes October 18, 2019 12:34pm Name of Medical Power of Gum Puller son- November 12, 2022 7:25am Name of Medical Power of Gum Puller DAUGHTER January 03, 2023 3:56pm Name of Medical Power of Gum Puller ALIE January 06, 2023 1:16pm Name of Medical Power of Gum Puller Alie Miroslava January 17, 2023 10:32pm Advance Directives Yes January 7:24am Living Will Yes January 17, 2023 10:32pm Power of Gum Puller Yes January 10:32pm Advance Directive Response Recorded Date/ Time Advance Directives on File Yes October 18, 2019 12:34pm Name of Medical Power of Gum Puller son- November 12, 2022 7:25am Name of Medical Power of Gum Puller DAUGHTER January 03, 2023 3:56pm Name of Medical Power of Gum Puller . January 27, 2023 11:38am Advance Directives Yes January 7:24am Living Will Yes January 27, 2023 11:38am Power of Gum Puller Yes January 11:38am Name of Medical Power of Gum Puller ALIE January 06, 2023 1:16pm Name of Medical Power of Gum Puller Alie [place] January 17, 2023 10:32pm Advance Directive Response Recorded Date/ Time Advance Directives on File Yes October 18, 2019 12:34pm Name of Medical Power of Gum Puller son- November 12, 2022 7:25am Name of Medical Power of Gum Puller DAUGHTER January 03, 2023 3:56pm Name of Medical Power of Gum Puller . January 27, 2023 11:38am Name of Medical Power of Gum Puller MELISSA SCHILLINGENER February 23, 2023 5:09pm Advance Directives Yes January 7:24am Living Will Yes February 23 5:09pm Power of Gum Puller Yes February 23, 2023 5:09pm Name of Medical Power of Gum Puller ALIE January 06, 2023 1:16pm Name of Medical Power of Gum Puller Alie [place] January 17, 2023 10:32pm Advance Directive Response Recorded Date/ Time Advance Directives on File Yes October 18, 2019 12:34pm Name of Medical Power of Gum Puller son- November 12, 2022 7:25am Name of Medical Power of Gum Puller DAUGHTER January 03, 2023 3:56pm Name of Medical Power of Gum Puller . January 27, 2023 11:38am Name of Medical Power of Gum Puller Alie Salazariesha r February 23, 2023 10:19pm Advance Directives Yes January 7:24am Living Will Yes February 23 10:19pm Power of Gum Puller Yes February 23, 2023 10:19pm Name of Medical Power of Gum Puller ALIE January 06, 2023 1:16pm Name of Medical Power of Gum Puller Alie Carsonler January 17, 2023 10:32pm Advance Directive Response Recorded Date/ Time Advance Directives on File Yes October 18, 2019 11:34am Name of Medical Power of Gum Puller DAUGHTER January 03, 2023 2:56pm Name of Medical Power of Gum Puller . January 27, 2023 10:38am Name of Medical Power of Gum Puller Alie Hostettle r February 23, 2023 9:19pm Advance Directives Yes January 6:24am Living Will Yes February 23 9:19pm Power of Gum Puller Yes February 23, 2023 9:19pm Name of Medical Power of Gum Puller ALIE January 06, 2023 12:16pm Name of Medical Power of Gum Puller Alie Miroslava January 17, 2023 9:32pm Advance Directive Response Recorded Date/ Time Name of Medical Power of Gum Puller . January 27, 2023 10:38am Name of Medical Power of Gum Puller Alie ettle r February 23, 2023 9:19pm Name of Medical Power of Gum Puller Alie Miroslava January 17, 2023 9:32pm Advance Directives No May 06, 2023 8:28am Living Will No May 06 8:28am Power of Gum Puller No May 06 8:28am Advance Directive Response Recorded Date/ Time Name of Medical Power of Gum Puller . January 27, 2023 10:38am Name of Medical Power of Gum Puller Alie ettle r February 23, 2023 9:19pm Advance Directives No May 06, 2023 8:28am Living Will No May 06 8:28am Power of Gum Puller No May 06 8:28am Advance Directive Response Recorded Date/ Time Name of Medical Power of Gum Puller Alie Kellerettle r February 23, 2023 9:19pm Advance Directives No May 06, 2023 8:28am Living Will No May 06 8:28am Power of Gum Puller No May 06 8:28am Advance Directive Response Recorded Date/ Time Advance Directives No May 06, 2023 8:28am Living Will No May 06 8:28am Power of Gum Puller No May 06 8:28am Advance Directive Response Recorded Date/ Time Advance Directives on File Yes October 18, 2019 12:34pm Advance Directives No May 06, 2023 9:28am Living Will No May 06 9:28am Power of Gum Puller No May 06 9:28am Advance Directive Response Recorded Date/ Time Living Will No May 06 9:28am Power of Gum Puller No May 06 9:28am Advance Directives No May 06, 2023 9:28am Advance Directive Response Recorded Date/ Time Living Will No May 06 9:28am Do you have a Healthcare Power of Gum Puller? No May 06, 2023 9:28am Living Will Yes July 23, 2024 2:42pm Do you have a Healthcare Power of Gum Puller? Yes July 23, 2024 2:42pm Name of Medical Power of Gum Puller Alie July 23, 2024 2:42pm Advance Directives No May 06, 2023 9:28am Advance Directive Response Recorded Date/ Time Living Will No May 06 9:28am Do you have a Healthcare Pow er of Gum Puller? No May 06, 2023 9:28am Do you have a Healthcare Pow er of Gum Puller? Yes November 30, 2024 10:44am Name of Medical Power of Gum Puller Judy Host etler November 30, 2024 10:44am Advance Directives No May 06, 2023 9:28am Advance Directive Response Recorded Date/ Time Living Will No May 06 9:28am Do you have a Healthcare Pow er of Gum Puller? No May 06, 2023 9:28am Do you have a Healthcare Pow er of Gum Puller? Yes November 30, 2024 4:07pm Name of Medical Power of Gum Puller Judy Host etler November 30, 2024 10:44am Advance Directives No May 06, 2023 9:28am Advance Directive Response Recorded Date/ Time Living Will No May 06 9:28am Do you have a Healthcare Pow er of Gum Puller? No May 06, 2023 9:28am Do you have a Healthcare Pow er of Gum Puller? Yes November 30, 2024 4:07pm Name of Medical Power of Gum Puller Judy Host etler November 30, 2024 10:44am Advance Directives No December 06 9:04am Advance Directive Response Recorded Date/ Time Living Will No May 06 9:28am Do you have a Healthcare Pow er of Gum Puller? No May 06, 2023 9:28am Advance Directives No December 06 025 9:04am Do you have a Healthcare Pow er of Gum Puller? Yes November 30, 2024 4:07pm Name of Medical Power of Gum Puller Judy maddox November 30, 2024 10:44am Chief Complaint and Reason for Visit Chief Complaint ORENCIA 1YR LABS ONC/HEM ORENCIA 6 m fu- pt request to come in ORENCIA ORENCIA SCREENING ORENCIA Reason for Visit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 11:05am AF (paroxysmal atrial fibrillation) September 12, 2024 11:05am Atherosclerosis of coronary artery of the [place] heart without angina pectoris September 12, 2024 11:05am Pleural effusion, right September 12, 2024 1 1:05am Presence of permanent cardiac pacemaker September 12, 2024 11:05am History of malignant neoplasm of right b reast October 23, 2024 12:19pm Mass of upper lobe of right lung October 232024 12:19pm Pleural effusion, right October 23, 2024 12:19pm Chief Complaint Admit Date DIPLOPIA- EORDER LABS AND XRAY July 9:24am Pacer Check Remote July 21, 2024 2:0 0am Recent pneumonia, hx pleural effusions, hx CHF July 22, 2024 10:40am FALL July 23, 2024 2:2 5pm EORDER July 28, 2024 11: 29am 1 Y FU September 12, 2024 11:05 am EORDERS/ ADD VELLANKI ORDER October 16, 2 025 11:27am Pacer Check Remote October 20, 2024 2:00 am 1YR LABS PRIOR October 23, 2024 12:1 9pm Chief Complaint Admit Date 1 Y FU September 12, 2024 11:05 am EORDERS/ ADD VELLANKI ORDER October 16, 2 025 11:27am Pacer Check Remote October 20, 2024 2:00 am 1YR LABS PRIOR October 23, 2024 12:1 9pm WEAKNESS AND DIZZINESS W/FALLS October 2:22pm Reason for Visit Admit Date Hyperlipidemia September 12, 2024 11:05 am Nonischemic cardiomyopathy September 12 11:05am AF (paroxysmal atrial fibrillation) September 12, 2024 11:05am Atherosclerosis of coronary artery of the [place] heart without angina pectoris September 12, 2024 11:05am Pleural effusion, right September 12, 2024 1 1:05am Presence of permanent cardiac pacemaker September 12, 2024 11:05am History of malignant neoplasm of right b reast October 23, 2024 12:19pm Mass of upper lobe of right lung October 232024 12:19pm Pleural effusion, right October 23, 2024 12:19pm Anticoagulant long-term use November 30, 2 025 2:22pm Closed head injury November 30, 2024 2:22 pm Dizziness November 30, 2024 2:22 pm Fall November 30, 2024 2:22 pm Paresthesias November 30, 2024 2:22 pm Traumatic hematoma of forehead October 2:22pm Chief Complaint Admit Date 1 Y FU September 12, 2024 11:05 am EORDERS/ ADD VELLANKI ORDER October 16, 2 025 11:27am Pacer Check Remote October 20, 2024 2:00 am 1YR LABS PRIOR October 23, 2024 12:1 9pm WEAKNESS AND DIZZINESS W/FALLS October 2:22pm WEAKNESS AND DIZZINESS W/FALLS December 2:59pm WEAKNESS AND DIZZINESS W/FALLS December d2024 5:28pm WEAKNESS AND DIZZINESS W/FALLS December d2024 10:42am WEAKNESS AND DIZZINESS W/FALLS December d2024 12:25pm inpatient follow up December 04, 2024 10: 37am WEAKNESS AND DIZZINESS W/FALLS December 10:58am WEAKNESS AND DIZZINESS W/FALLS December h2024 3:08pm Reason for Visit Admit Date Hyperlipidemia September 12, 2024 11:05 am Nonischemic cardiomyopathy September 12 11:05am AF (paroxysmal atrial fibrillation) September 12, 2024 11:05am Atherosclerosis of coronary artery of the [place] heart without angina pectoris September 12, 2024 11:05am Pleural effusion, right September 12, 2024 1 1:05am Presence of permanent cardiac pacemaker September 12, 2024 11:05am History of malignant neoplasm of right b reast October 23, 2024 12:19pm Mass of upper lobe of right lung October 232024 12:19pm Pleural effusion, right October 23, 2024 12:19pm Anticoagulant long-term use December 02, 2024 5:28pm Closed head injury December 02, 2024 5:2 8pm Complete heart block December 02, 2024 5: 28pm Congestive heart failure (CHF) December 5:28pm Dizziness December 02, 2024 5:2 8pm Fall December 02, 2024 5:2 8pm Hyperlipidemia December 02, 2024 5:2 8pm Non-rheumatic mitral regurgitation Augus t 2024 5:28pm Pacemaker December 02, 2024 5:2 8pm Paresthesias December 02, 2024 5:2 8pm Traumatic hematoma of forehead December 5:28pm AF (paroxysmal atrial fibrillation) Augu st 2024 5:28pm History of coronary artery stent placeme nt December 02, 2024 5:28pm Atrial fibrillation December 04, 2024 10: 37am Complete heart block December 04, 2024 10 :37am Nonischemic cardiomyopathy December 04, 025 10:37am Pacemaker December 04, 2024 10: 37am Presence of permanent cardiac pacemaker December 04, 2024 10:37am Chief Complaint Admit Date 1 Y FU September 12, 2024 11:05 am EORDERS/ ADD VELLANKI ORDER October 16, 2 025 11:27am Pacer Check Remote October 20, 2024 2:00 am 1YR LABS PRIOR October 23, 2024 12:1 9pm WEAKNESS AND DIZZINESS W/FALLS October 2:22pm WEAKNESS AND DIZZINESS W/FALLS December 2:59pm WEAKNESS AND DIZZINESS W/FALLS December 5:28pm WEAKNESS AND DIZZINESS W/FALLS December 10:42am WEAKNESS AND DIZZINESS W/FALLS December 12:25pm inpatient follow up December 04, 2024 10: 37am WEAKNESS AND DIZZINESS W/FALLS December 10:58am WEAKNESS AND DIZZINESS W/FALLS December 3:08pm WEAKNESS AND DIZZINESS W/FALLS December 7:53am WEAKNESS AND DIZZINESS W/FALLS December 9:21am WEAKNESS AND DIZZINESS W/FALLS December 7:45am WEAKNESS AND DIZZINESS W/FALLS December 8:21am Chief Complaint Admit Date 1 Y FU September 12, 2024 11:05 am EORDERS/ ADD VELLANKI ORDER October 16, 2 025 11:27am Pacer Check Remote October 20, 2024 2:00 am 1YR LABS PRIOR October 23, 2024 12:1 9pm WEAKNESS AND DIZZINESS W/FALLS October 2:22pm WEAKNESS AND DIZZINESS W/FALLS December 2:59pm WEAKNESS/DIZZINESS December 01, 2024 3:0 0pm WEAKNESS AND DIZZINESS W/FALLS December d2024 4:07pm WEAKNESS AND DIZZINESS W/FALLS December d2024 5:28pm WEAKNESS AND DIZZINESS W/FALLS December d2024 10:42am WEAKNESS AND DIZZINESS W/FALLS December d2024 12:25pm inpatient follow up December 04, 2024 10: 37am WEAKNESS AND DIZZINESS W/FALLS December 4t h2024 10:58am WEAKNESS AND DIZZINESS W/FALLS December h2024 3:08pm WEAKNESS AND DIZZINESS W/FALLS December h2024 7:53am WEAKNESS AND DIZZINESS W/FALLS December 9:21am WEAKNESS AND DIZZINESS W/FALLS December 7:45am WEAKNESS AND DIZZINESS W/FALLS December h2024 8:21am Reason for Visit Admit Date Hyperlipidemia September 12, 2024 11:05 am Nonischemic cardiomyopathy September 12 11:05am AF (paroxysmal atrial fibrillation) September 12, 2024 11:05am Atherosclerosis of coronary artery of the [place] heart without angina pectoris September 12, 2024 11:05am Pleural effusion, right September 12, 2024 1 1:05am Presence of permanent cardiac pacemaker September 12, 2024 11:05am History of malignant neoplasm of right b reast October 23, 2024 12:19pm Mass of upper lobe of right lung October 232024 12:19pm Pleural effusion, right October 23, 2024 12:19pm Anticoagulant long-term use December 02, 2024 4:07pm Closed head injury December 02, 2024 4:0 7pm Complete heart block December 02, 2024 4: 07pm Congestive heart failure (CHF) December 4:07pm Fall December 02, 2024 4:0 7pm Hyperlipidemia December 02, 2024 4:0 7pm Non-rheumatic mitral regurgitation Augus t 2024 4:07pm Pacemaker December 02, 2024 4:0 7pm Paresthesias December 02, 2024 4:0 7pm Traumatic hematoma of forehead December 4:07pm AF (paroxysmal atrial fibrillation) Augu st 2024 4:07pm History of coronary artery stent placeme nt December 02, 2024 4:07pm Dizziness December 02, 2024 4:0 7pm Atrial fibrillation December 04, 2024 10: 37am Complete heart block December 04, 2024 10 :37am Nonischemic cardiomyopathy December 04 10:37am Pacemaker December 04, 2024 10: 37am Presence of permanent cardiac pacemaker December 04, 2024 10:37am Chief Complaint Admit Date 1 Y FU September 12, 2024 11:05 am EORDERS/ ADD VELLANKI ORDER October 16 2 025 11:27am Pacer Check Remote October 20, 2024 2:00 am 1YR LABS PRIOR October 23, 2024 12:1 9pm WEAKNESS AND DIZZINESS W/FALLS October 2:22pm WEAKNESS AND DIZZINESS W/FALLS December 2:59pm WEAKNESS/DIZZINESS December 01, 2024 3:0 0pm WEAKNESS AND DIZZINESS W/FALLS December 4:07pm WEAKNESS AND DIZZINESS W/FALLS December 5:28pm WEAKNESS AND DIZZINESS W/FALLS December 10:42am WEAKNESS AND DIZZINESS W/FALLS December 12:25pm Pacer Check Remote December 04, 2024 9:0 0am inpatient follow up December 04, 2024 10: 37am WEAKNESS AND DIZZINESS W/FALLS December 10:58am WEAKNESS AND DIZZINESS W/FALLS December 3:08pm WEAKNESS AND DIZZINESS W/FALLS December 7:53am WEAKNESS AND DIZZINESS W/FALLS December 9:21am WEAKNESS AND DIZZINESS W/FALLS December 7:45am WEAKNESS AND DIZZINESS W/FALLS December 8:21am Chief Complaint Admit Date 1 Y FU September 12, 2024 11:05 am EORDERS/ ADD VELLANKI ORDER October 16 2 025 11:27am Pacer Check Remote October 20, 2024 2:00 am 1YR LABS PRIOR October 23, 2024 12:1 9pm WEAKNESS AND DIZZINESS W/FALLS October 2:22pm WEAKNESS AND DIZZINESS W/FALLS December 2:59pm WEAKNESS/DIZZINESS December 01, 2024 3:0 0pm WEAKNESS AND DIZZINESS W/FALLS December 4:07pm WEAKNESS AND DIZZINESS W/FALLS December 5:28pm WEAKNESS AND DIZZINESS W/FALLS December 10:42am WEAKNESS AND DIZZINESS W/FALLS December 12:25pm Pacer Check Remote December 04, 2024 9:0 0am inpatient follow up December 04, 2024 10: 37am WEAKNESS AND DIZZINESS W/FALLS December 10:58am WEAKNESS AND DIZZINESS W/FALLS December 3:08pm WEAKNESS AND DIZZINESS W/FALLS December 7:53am WEAKNESS AND DIZZINESS W/FALLS December 9:21am WEAKNESS AND DIZZINESS W/FALLS December 7:45am WEAKNESS AND DIZZINESS W/FALLS December 8:21am CERVICAL SPINE December 19, 2024 9: 51am Room 4 December 19, 2024 10 :33am Chief Complaint Admit Date 1 Y FU September 12, 2024 11:05 am EORDERS/ ADD VELLANKI ORDER October 16, 2 025 11:27am Pacer Check Remote October 20, 2024 2:00 am 1YR LABS PRIOR October 23, 2024 12:1 9pm WEAKNESS AND DIZZINESS W/FALLS October 2:22pm WEAKNESS AND DIZZINESS W/FALLS December 2:59pm WEAKNESS/DIZZINESS December 01, 2024 3:0 0pm WEAKNESS AND DIZZINESS W/FALLS December 4:07pm WEAKNESS AND DIZZINESS W/FALLS December 5:28pm WEAKNESS AND DIZZINESS W/FALLS December 10:42am WEAKNESS AND DIZZINESS W/FALLS December 12:25pm Pacer Check Remote December 04, 2024 9:0 0am inpatient follow up December 04, 2024 10: 37am WEAKNESS AND DIZZINESS W/FALLS [place] 4t h, 2025 10:58am WEAKNESS AND DIZZINESS W/FALLS December 3:08pm WEAKNESS AND DIZZINESS W/FALLS December 7:53am WEAKNESS AND DIZZINESS W/FALLS December 9:21am WEAKNESS AND DIZZINESS W/FALLS December 7:45am WEAKNESS AND DIZZINESS W/FALLS December 8:21am CERVICAL SPINE December 19, 2024 9: 51am Room 4 December 19, 2024 10 :33am PAIN- COPY PCP December 22, 2024 11 :31am S/P [facility] 12/06December 27, 2024 9: 36am Reason for Visit Admit Date Hyperlipidemia September 12, 2024 11:05 am Nonischemic cardiomyopathy September 12 11:05am AF (paroxysmal atrial fibrillation) September 12, 2024 11:05am Atherosclerosis of coronary artery of the [place] heart without angina pectoris September 12, 2024 11:05am Pleural effusion, right September 12, 2024 1 1:05am Presence of permanent cardiac pacemaker September 12, 2024 11:05am History of malignant neoplasm of right b reast October 23, 2024 12:19pm Mass of upper lobe of right lung October 232024 12:19pm Pleural effusion, right October 23, 2024 12:19pm Anticoagulant long-term use December 02, 2024 4:07pm Closed head injury December 02, 2024 4:0 7pm Complete heart block December 02, 2024 4: 07pm Congestive heart failure (CHF) December 4:07pm Fall December 02, 2024 4:0 7pm Hyperlipidemia December 02, 2024 4:0 7pm Non-rheumatic mitral regurgitation Augus t 2024 4:07pm Pacemaker December 02, 2024 4:0 7pm Paresthesias December 02, 2024 4:0 7pm Traumatic hematoma of forehead December d2024 4:07pm AF (paroxysmal atrial fibrillation) Decu st 2024 4:07pm History of coronary artery stent placeme nt December 02, 2024 4:07pm Dizziness December 02, 2024 4:0 7pm Atrial fibrillation December 04, 2024 10: 37am Complete heart block December 04, 2024 10 :37am Nonischemic cardiomyopathy December 04, 2 025 10:37am Pacemaker December 04, 2024 10: 37am Presence of permanent cardiac pacemaker December 04, 2024 10:37am Kyphosis of cervical region December 19, 2024 9:51am Spondylolisthesis, cervical region Augus 2024 9:51am Cervical radiculopathy December 19, 2024 9:51am Reason for Visit Admit Date Hyperlipidemia September 12, 2024 11:05 am Nonischemic cardiomyopathy September 12 11:05am AF (paroxysmal atrial fibrillation) September 12, 2024 11:05am Atherosclerosis of coronary artery of the [place] heart without angina pectoris September 12, 2024 11:05am Pleural effusion, right September 12, 2024 1 1:05am Presence of permanent cardiac pacemaker September 12, 2024 11:05am History of malignant neoplasm of right b reast October 23, 2024 12:19pm Mass of upper lobe of right lung October 232024 12:19pm Pleural effusion, right October 23, 2024 12:19pm Anticoagulant long-term use December 02, 2024 4:07pm Closed head injury December 02, 2024 4:0 7pm Complete heart block December 02, 2024 4: 07pm Congestive heart failure (CHF) December 4:07pm Fall December 02, 2024 4:0 7pm Hyperlipidemia December 02, 2024 4:0 7pm Non-rheumatic mitral regurgitation Decus t 2024 4:07pm Pacemaker December 02, 2024 4:0 7pm Paresthesias December 02, 2024 4:0 7pm Traumatic hematoma of forehead December 4:07pm AF (paroxysmal atrial fibrillation) Augu 2024 4:07pm History of coronary artery stent placeme nt December 02, 2024 4:07pm Dizziness December 02, 2024 4:0 7pm Atrial fibrillation December 04, 2024 10: 37am Complete heart block December 04, 2024 10 :37am Nonischemic cardiomyopathy December 04, 025 10:37am Pacemaker December 04, 2024 10: 37am Presence of permanent cardiac pacemaker December 04, 2024 10:37am Kyphosis of cervical region December 19, 2024 9:51am Spondylolisthesis, cervical region Decus t 2024 9:51am Cervical radiculopathy December 19, 2024 9:51am Hyperlipidemia December 27, 2024 9: 36am Hypotension December 27, 2024 9: 36am Nonischemic cardiomyopathy December 27, 2024 9:36am AF (paroxysmal atrial fibrillation) Augu st 2024 9:36am Atherosclerosis of coronary artery of the [place] heart without angina pectoris December 27, 2024 9:36am Pleural effusion, right December 27 9:36am Presence of permanent cardiac pacemaker December 27, 2024 9:36am Additional Source Comments INFORMATION SOURCE (unrecogn ized section and content) DATE CREATED AUTHOR 10/29/2017 [facility] DATE CREATED AUTHOR AUTHOR'S ORGANIZ ATION 04/02/[address] [facility] DATE CREATED AUTHOR AUTHOR'S ORGANIZ ATION 09/09/2022 [facility] DATE CREATED AUTHOR AUTHOR'S ORGANIZ ATION 08/04/2023 [facility] DATE CREATED AUTHOR AUTHOR'S ORGANIZ ATION 12/31/2024 [facility] Goals (unrecognized section and content) Goals may [...] or prosecute any alcohol or drug abuse patient.[facility] the event this information is protected by the Federal Confidentiality of Alcohol and Drug Abuse Patient Records regulations: The Federal rules restrict any use of the information to criminally investigate or prosecute any alcohol or drug abuse patient.[facility] Center[facility] the event this information is protected by the Federal Confidentiality of Alcohol and Drug Abuse Patient Records regulations: The Federal rules restrict any use of the information to criminally investigate or prosecute any alcohol or drug abuse patient.[facility] the event this information is protected by the Federal Confidentiality of Alcohol and Drug Abuse Patient Records regulations: The Federal rules restrict any use of the information to criminally investigate or prosecute any alcohol or drug abuse patient.[facility] Center[facility] the event this information is protected by the Federal Confidentiality of Alcohol and Drug Abuse Patient Records regulations: The Federal rules restrict any use of the information to criminally investigate or prosecute any alcohol or drug abuse patient.[facility] Center[facility] the event this information is protected by the Federal Confidentiality of Alcohol and Drug Abuse Patient Records regulations: The Federal rules restrict any use of the information to criminally investigate or prosecute any alcohol or drug abuse patient.[facility] Center[facility] the event this information is protected by the Federal Confidentiality of Alcohol and Drug Abuse Patient Records regulations: The Federal rules restrict any use of the information to criminally investigate or prosecute any alcohol or drug abuse patient.[facility] Center[facility] the event this information is protected by the Federal Confidentiality of Alcohol and Drug Abuse Patient Records regulations: The Federal rules restrict any use of the information to criminally investigate or prosecute any alcohol or drug abuse patient.[facility] Center[facility] the event this information is protected by the Federal Confidentiality of Alcohol and Drug Abuse Patient Records regulations: The Federal rules restrict any use of the information to criminally investigate or prosecute any alcohol or drug abuse patient.[facility] Center[facility] the event this information is protected by the Federal Confidentiality of Alcohol and Drug Abuse Patient Records regulations: The Federal rules restrict any use of the information to criminally investigate or prosecute any alcohol or drug abuse patient.[facility] Reason for Visit (unrecogniz ed [...] history of malignant neoplasm of breast Procedures HI OFFICE/OUTPATIENT NEW MODERATE MDM 45-59 MINUTES Matteo Jonas. [address] [place] [address] [facility] [address] [place] [address] Referral ID Status Reason Start Date Expiration Date V isits Requested Visits Authorized [id number] Pending Review 09/15/2022 09/15/2023 1 1 Reason Onset Date Comments Care Coordination 09/30/2022 Lung Nodule Fo llow Up Reason Comments Results Reason Onset Date Comments Care Coordination 06/30/2023 Care Teams (unrecognized sec tion and content) Chamfering Machine Operator Relationship Specialty Start Date End Date Teagan Hall [address] [place] [address] PCP - General 08/13/00 Chamfering Machine Operator Relationship Specialty Start Date End Date Teagan Hall [address] [facility] [address] [place] [address] PCP - General 08/13/00 Chamfering Machine Operator Relationship Specialty Start Date End Date Teagan Hall [address] [facility] [address] [place] [address] PCP - General 08/13/00 Team Status: Active Member Role Status Dates Dr. Teagan Hall MD Family Provider Active Dr. Teagan Hall MD Primary Care Provider Active Team Status: Active Member Role Status Dates Dr. Teagan Hall MD Primary Care Provider Active Dr. Michael Wright MD Attending Provider Active Dr. Jimenez Shane MD Referring Provider Active Team Status: Inactive Member Role Status Dates Dr. Teagan Hall MD Primary Care Provider, [facility] Active Dr. Matteo Jonas MD Attending Provider Active Team Status: Active Member Role Status Dates Dr. Teagan Hall MD Primary Care Prov ider, Family Provider, Referring Provider Active Julieth Gutierres MAINTENANCE TEAM LEADER, MAINTENANCE TEAM LEADER-C Attending Provider Active Team Status: Inactive Member Role Status Dates Dr. Teagan Hall MD Primary Care Provider Active Dr. Jimenez Shane MD Attending Provider Active Team Status: Inactive Member Role Status Dates Dr. Teagan Hall MD Primary Care Provider Active Dr. Leena Serra MD Attending Provider, Referring Provider Active Chamfering Machine Operator Relationship Specialty Start Date End Date Teagan Hall [address] [place] [address] PCP - General 08/13/00 Chamfering Machine Operator Relationship Specialty Start Date End Date Teagan Hall [address] [place] [address] PCP - General 08/13/00 Chamfering Machine Operator Relationship Specialty Start Date End Date Teagan Hall [address] [place] [address] PCP - General 08/13/00 Team Status: Inactive Member Role Status Dates Dr. Teagan Hall MD Primary Care Provider, Referrin g Provider Active Dr. Jimenez Shane MD Attending Provider Active Team Status: Active Member Role Status Dates Dr. Teagan Hall MD Primary Care Provider Active Holli Morillo Attending Provider Active Team Status: Inactive Member Role Status Dates Dr. Teagan Hall MD Primary Care Prov ider, Attending Provider, Referring Provider Active Chamfering Machine Operator Relationship Specialty Start Date End Date Teagan Hall [address] [place] [address] PCP - General 08/13/00 Team Status: Active Member Role Status Dates Dr. Teagan Hall MD Primary Care Provider Active Dr. Leena Serra MD Attending Provider, Referring Provider Active Team Status: Inactive Member Role Status Dates Dr. Teagan Hall MD Primary Care Provider Active Dr. Henrry Cano DO Emergency Provider Active Chamfering Machine Operator Relationship Specialty Start Date End Date Teagan Hall [address] [place] [address] PCP - General Family Medicine 09/16/22 Team Status: Inactive Member Role Status Dates Dr. Teagan Hall MD Primary Care Provider Active Dr. Henrry Cano DO Attending Provider, Emergency Provider Active Team Status: Inactive Member Role Status Dates Dr. Teagan Hall MD Primary Care Provider Active Dr. Matteo Jonas MD Attending Provider, Referring Pro vider Active Chamfering Machine Operator Relationship Specialty Start Date End Date Teagan Hall [address] [place] [address] PCP - General [facility] Medicine 09/16/22 Team Status: Inactive Member Role Status Dates Dr. Teagan Hall MD Primary Care Provider Active Dr. Seth Garcia MD Emergency Provider Active Team Status: Inactive Member Role Status Dates Dr. Teagan Hall MD Primary Care Provider Active Dr. Seth Garcia MD Attending Provider, Emergency Provider Active Chamfering Machine Operator Relationship Specialty Start Date End Date Teagan Hall [address] [place] [address] PCP - General Family Medicine 09/16/22 Chamfering Machine Operator Relationship Specialty Start Date End Date Teagan Hall [address] [place] [address] PCP - General Family Medicine 09/16/22 Team [...] Provider, Referrin g Provider Active Sharad Londono MAINTENANCE TEAM LEADER, MAINTENANCE TEAM LEADER-C Attending Provider Active Team Status: Active Member Role Status Dates Dr. Teagan Hall MD Primary Care Provider Active Holli Gaona PA, PA Other Provider Active Dr. Elias Arevalo MD Attending Provider, Referring Pro vider Active Team Status: Active Member Role Status Dates Dr. Teagan Hall MD Primary Care Provider Active Sharad Londono MAINTENANCE TEAM LEADER, MAINTENANCE TEAM LEADER-C Attending Provider Active Team Status: Inactive Member Role Status Dates Dr. Teagan Hall MD Primary Care Provider Active Dr. Miriam Reyes MD Attending Provider, Emergency Provider Active Team Status: Inactive Member Role Status Dates Dr. Teagan Hall MD Primary Care Provider Active Sharad Londono MAINTENANCE TEAM LEADER, MAINTENANCE TEAM LEADER-C Attending Provider, Referring Pro vider Active Team Status: Inactive Member Role Status Dates Dr. Teagan Hall MD Primary Care Provider Active Dr. Cj Dougherty DO Attending Provider, Emergency Pr ovider Active Team Status: Inactive Member Role Status Dates Dr. Teagan Hall MD Primary Care Provider Active Dr. Leena Serra MD Attending Provider, Referring Provider Active Sharad Londono MAINTENANCE TEAM LEADER, MAINTENANCE TEAM LEADER-C Other Provider Active Team Status: Active Member Role Status Dates Dr. Teagan Hall MD Primary Care Provider Active Holli Gaona PA, PA Referring Provider, Other Provider Active Kayleigh Juarez NP-C Attending Provider Active Team Status: Active Member [...] MD Primary Care Provider Active Mary Zapien MAINTENANCE TEAM LEADER, MAINTENANCE TEAM LEADER-C Attending Provider, Referring P rovider Active Dr. Leena Serra MD Other Provider Active Team Status: Inactive Member Role Status Dates Dr. Teagan Hall MD Primary Care Provider Active Iza Pagan Active Dr. Elias Arevalo MD Attending Provider, Referring Pro vider Active Team Status: Inactive Member Role Status Dates Dr. Teagan Hall MD Primary Care Provider, Referrin g Provider Active Mariely Petersen MAINTENANCE TEAM LEADER, MAINTENANCE TEAM LEADER-C Attending Provider Active Team Status: Active Member Role Status Dates Dr. Teagan Hall MD Primary Care Provider Active Dr. Elias Arevalo MD Attending Provider, Referring Pro vider Active Team Status: Inactive Member Role Status Dates Dr. Teagan Hall MD Primary Care Provider Active Dr. Elias Arvealo MD Attending Provider Active Team Status: Inactive Member Role Status Dates Dr. Teagan Hall MD Primary Care Provider Active Mary Zapien MAINTENANCE TEAM LEADER, MAINTENANCE TEAM LEADER-C Attending Provider, Referring P migel Active Team Status: Inactive Member Role Status Dates Dr. Teagan Hall MD Primary Care Provider Active Dr. Elias Arevalo MD Attending Provider, Referring Pro vider Active Team Status: Active Member Role Status Dates Dr. Teagan Hall MD Primary Care Provider Active Mariely Petersen MAINTENANCE TEAM LEADER, MAINTENANCE TEAM LEADER-C Attending Provider, Referrin g Provider Active Team Status: Active Member Role Status Dates Dr. Teagan Hall MD Primary Care Provider Active Mariely Petersen MAINTENANCE TEAM LEADER, MAINTENANCE TEAM LEADER-C Referring Provider, Other Pr ovider Active Dr. Ash Loving DO Attending Provider Active Team Status: Active Member Role Status Dates Dr. Teagan Hall MD Primary Care Provider Active Dr. Jesi Dunham MD Attending Provider Active Dr. Elias Arevalo MD Referring Provider Active Team Status: Inactive Member Role Status Dates Dr. Teagan Hall MD Primary Care Provider Active Mariely Petersen MAINTENANCE TEAM LEADER, MAINTENANCE TEAM LEADER-C Attending Provider, Referrin g Provider Active Team Status: Inactive Member Role Status Dates Dr. Teagan Hall MD Primary Care Provider, Referrin g Provider Active Dr. 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 Teagan Hall MD Primary Care Provider Active Start: July 22, 2024 Holli JOEL PA Attending Provider Active Start: July 22, 2024 Holli JOEL PA Referring Provider Active Start: July 22, [...] 22, 2024 End: July 22, 2024 Holli JOEL PA Attending Provider Active Start: July 22, 2024 End: July 22, 2024 Holli JOEL PA Referring Provider Active Start: July 22, [...] 2024 End: July 28, 2024 Sharad Londono MAINTENANCE TEAM LEADER, MAINTENANCE TEAM LEADER-C Attending Provider Active S tart: July 28, 2024 End: July 28, 2024 Sharad Londono MAINTENANCE TEAM LEADER, MAINTENANCE TEAM LEADER-C Referring Provider Active S tart: July 28, [...] September 12, 2024 End: September 12, 2024 Team Status: Inactive Member Role Status Dates Dr. Teagan Hall MD Primary Care Provider Active Start: September 29, 2024 End: September 29, 2024 Dr. Leena Serra MD Attending Provider Active Start: September 29, 2024 End: September 29, 2024 Dr. Leena Serra MD Referring Provider Active Start: September 29, 2024 End: September 29, 2024 Team Status: Inactive Member Role Status Dates Dr. Teagan Hall MD Primary Care Provider Active Start: October 16, 2024 End: October 16, 2024 Dr. Matteo Jonas MD Attending Provider Active S tart: October 16, 2024 End: October 16, 2024 Dr. Matteo Jonas MD Referring Provider Active S tart: October 16, 2024 End: October 16, 2024 Dr. Leena Serra MD Other Provider Active St art: October 16, 2024 End: October 16, 2024 Team Status: Inactive Member Role Status Dates Dr. Teagan Hall MD Primary Care Provider Active Start: October 23, 2024 End: October 23, 2024 Dr. Teagan Hall MD Referring Provider Active Start: October 23, 2024 End: October 23, 2024 Dr. Matteo Jonas MD Attending Provider Active S tart: October 23, 2024 End: October 23, 2024 Team Status: Active Member Role/Relationship Status Dates Dr. Teagan Hall MD Primary Care Provider Active Team Status: Inactive Member Role/Relationship Status Dates Dr. Teagan Hall MD Primary Care Provider Active Start: July 04, 2024 End: July 04, 2024 Dr. Tripp Childress MD Attending Provider Active Start: July 04, 2024 End: July 04, 2024 Dr. Tripp Childress MD Referring Provider Active Start: July 04, 2024 End: July 04, 2024 Sharad Londono MAINTENANCE TEAM LEADER, MAINTENANCE TEAM LEADER-C Other Provider Active Start : July 04, 2024 End: July 04, 2024 Team Status: Inactive Member Role/Relationship Status Dates Dr. Teagan Hall MD Primary Care Provider Active Start: July 21, 2024 End: July 21, 2024 Dr. Elias Arevalo MD Attending Provider Active S tart: July 21, 2024 End: July 21, 2024 Dr. Elias Arevalo MD Referring Provider Active S tart: July 21, 2024 End: July 21, 2024 Team Status: Inactive Member Role/Relationship Status Dates Dr. Teagan Hall MD Primary Care Provider Active Start: July 22, 2024 End: July 22, 2024 Holli Gaona PA, PA Attending Provider Active Start: July 22, 2024 End: July 22, 2024 Holli Gaona PA, PA Referring Provider Active Start: July 22, 2024 End: July 22, 2024 Team Status: Inactive Member Role/Relationship Status Dates Dr. Teagan Hall MD Primary Care Provider Active Start: July 23, 2024 End: July 23, 2024 Dr. Anant Cooper MD Attending Provider Active Sta rt: July 23, 2024 End: July 23, 2024 Dr. Anant Cooper MD Emergency Provider Active Sta rt: July 23, 2024 End: July 23, 2024 Team Status: Inactive Member Role/Relationship Status Dates Dr. Teagan Hall MD Primary Care Provider Active Start: July 28, 2024 End: July 28, 2024 Sharad Londono MAINTENANCE TEAM LEADER, MAINTENANCE TEAM LEADER-C Attending Provider Active S tart: July 28, 2024 End: July 28, 2024 Sharad Londono MAINTENANCE TEAM LEADER, MAINTENANCE TEAM LEADER-C Referring Provider Active S tart: July 28, 2024 End: July 28, 2024 Team Status: Inactive Member Role/Relationship Status Dates Dr. Teagan Hall MD Primary Care Provider Active Start: September 12, 2024 End: September 12, 2024 Dr. Teagan Hall MD Referring Provider Active Start: September 12, 2024 End: September 12, 2024 Dr. Elias Arevalo MD Attending Provider Active S tart: September 12, 2024 End: September 12, 2024 Team Status: Inactive Member Role/Relationship Status Dates Dr. Teagan Hall MD Primary Care Provider Active Start: September 29, 2024 End: September 29, 2024 Dr. Leena Serra MD Attending Provider Active Start: September 29, 2024 End: September 29, 2024 Dr. Leena Serra MD Referring Provider Active Start: September 29, 2024 End: September 29, 2024 Team Status: Inactive Member Role/Relationship Status Dates Dr. Teagan Hall MD Primary Care Provider Active Start: October 16, 2024 End: October 16, 2024 Dr. Matteo Jonas MD Attending Provider Active S tart: October 16, 2024 End: October 16, 2024 Dr. Matteo Jonas MD Referring Provider Active S tart: October 16, 2024 End: October 16, 2024 Dr. Leena Serra MD Other Provider Active St art: October 16, 2024 End: October 16, 2024 Team Status: Inactive Member Role/Relationship Status Dates Dr. Teagan Hall MD Primary Care Provider Active Start: October 20, 2024 End: October 20, 2024 Dr. Elias Arevalo MD Attending Provider Active S tart: October 20, 2024 End: October 20, 2024 Team Status: Inactive Member Role/Relationship Status Dates Dr. Teagan Hall MD Primary Care Provider Active Start: October 23, 2024 End: October 23, 2024 Dr. Teagan Hall MD Referring Provider Active Start: October 23, 2024 End: October 23, 2024 Dr. Matteo Jonas MD Attending Provider Active S tart: October 23, 2024 End: October 23, 2024 Team Status: Active Member Role/Relationship Status Dates Dr. Linda Mao MD Primary Care Provider Acti ve Team Status: Inactive Member Role/Relationship Status Dates Dr. Teagan Hall MD Primary Care Provider Active Start: September 12, 2024 End: September 12, 2024 Dr. Teagan Hall MD Referring Provider Active Start: September 12, 2024 End: September 12, 2024 Dr. Elias Arevalo MD Attending Provider Active S tart: September 12, 2024 End: September 12, 2024 Team Status: Inactive Member Role/Relationship Status Dates Dr. Teagan Hall MD Primary Care Provider Active Start: September 29, 2024 End: September 29, 2024 Dr. Leena Serra MD Attending Provider Active Start: September 29, 2024 End: September 29, 2024 Dr. Leena Serra MD Referring Provider Active Start: September 29, 2024 End: September 29, 2024 Team Status: Inactive Member Role/Relationship Status Dates Dr. Teagan Hall MD Primary Care Provider Active Start: October 16, 2024 End: October 16, 2024 Dr. Matteo Jonas MD Attending Provider Active S tart: October 16, 2024 End: October 16, 2024 Dr. Matteo Jonas MD Referring Provider Active S tart: October 16, 2024 End: October 16, 2024 Dr. Leena Serra MD Other Provider Active St art: October 16, 2024 End: October 16, 2024 Team Status: Inactive Member Role/Relationship Status Dates Dr. Teagan Hall MD Primary Care Provider Active Start: October 20, 2024 End: October 20, 2024 Dr. Elias Arevalo MD Attending Provider Active S tart: October 20, 2024 End: October 20, 2024 Dr. Elias Arevalo MD Referring Provider Active S tart: October 20, 2024 End: October 20, 2024 Team Status: Inactive Member Role/Relationship Status Dates Dr. Teagan Hall MD Primary Care Provider Active Start: October 23, 2024 End: October 23, 2024 Dr. Teagan Hall MD Referring Provider Active Start: October 23, 2024 End: October 23, 2024 Dr. Matteo Jonas MD Attending Provider Active S tart: October 23, 2024 End: October 23, 2024 Team Status: Active Member Role/Relationship Status Dates Nikos Lake MD Emergency Provider Active Star t: November 30, 2024 Dr. Linda Mao MD Primary Care Provider Acti ve Start: November 30, 2024 Dr. Sean Thornton DO Admit Provider Active Start: November 30, 2024 Dr. Sean Thornton DO Attending Provider Active Start: November 30, 2024 Team Status: Active Member Role/Relationship Status Dates Nikos Lake MD Emergency Provider Active Star t: November 30, 2024 Dr. Linda Mao MD Primary Care Provider Acti ve Start: November 30, 2024 Dr. Sean Thornton DO Admit Provider Active Start: November 30, 2024 Dr. Sean Thornton DO Attending Provider Active Start: November 30, 2024 Dr. Sean Thornton DO Other Provider Active Start: November 30, 2024 Team Status: Active Member Role/Relationship Status Dates Nikos Lake MD Emergency Provider Active Star t: December 01, 2024 Dr. Linda Mao MD Primary Care Provider Acti ve Start: December 01, 2024 Dr. Sean Thornton DO Admit Provider Active Start: December 01, 2024 Dr. Sean Thornton DO Other Provider Active Start: December 01, 2024 Dr. Marga Butcher MD Attending Provider Active Start: December 01, 2024 Dr. Marga Butcher MD Other Provider Active Star t: December 01, 2024 Team Status: Active Member Role/Relationship Status Dates Nikos Lake MD Emergency Provider Active Star t: December 02, 2024 Dr. Linda Mao MD Primary Care Provider Acti ve Start: December 02, 2024 Dr. Sean Thornton DO Admit Provider Active Start: December 02, 2024 Dr. Sean Thornton DO Attending Provider Active Start: December 02, 2024 Dr. Sean Thornton DO Other Provider Active Start: December 02, 2024 Dr. Savi Patel MD Other Provider Active St art: December 02, 2024 Dr. Marga Butcher MD Other Provider Active Star t: December 02, 2024 Team Status: Active Member Role/Relationship Status Marco A Lake MD Emergency Provider Active Star t: December 03, 2024 Dr. Linda Mao MD Primary Care Provider Acti ve Start: December 03, 2024 Dr. Sean Thornton DO Admit Provider Active Start: December 03, 2024 Dr. Sean Thornton DO Other Provider Active Start: December 03, 2024 Dr. Marga Butcher MD Attending Provider Active Start: December 03, 2024 Dr. Marga Butcher MD Other Provider Active Star t: December 03, 2024 Dr. Savi Patel MD Other Provider Active St art: December 03, 2024 Team Status: Active Member Role/Relationship Status Dates Nikos Lake MD Emergency Provider Active Star t: December 03, 2024 Dr. Linda Mao MD Primary Care Provider Acti ve Start: December 03, 2024 Dr. Sean Thornton DO Admit Provider Active Start: December 03, 2024 Dr. Sean Thornton DO Other Provider Active Start: December 03, 2024 Dr. Marga Butcher MD Other Provider Active Star t: December 03, 2024 Dr. Savi Patel MD Other Provider Active St art: December 03, 2024 Dr. Elias Arevalo MD Attending Provider Active S tart: December 03, 2024 Team Status: Active Member Role/Relationship Status Dates Dr. Linda Mao MD Primary Care Provider Acti ve Start: December 04, 2024 Dr. Michael Wright MD Attending Provider Active S tart: December 04, 2024 Team Status: Inactive Member Role/Relationship Status Dates Dr. Linda Mao MD Primary Care Provider Acti ve Start: December 04, 2024 End: December 04, 2024 Dr. Linda aMo MD Referring Provider Active Start: December 04, 2024 End: December 04, 2024 Iza Pagan Attending Provider Active Start: A 2024 End: December 04, 2024 Team Status: Active Member Role/Relationship Status Dates Nikos Lake MD Emergency Provider Active Star t: December 04, 2024 Dr. Linda Mao MD Primary Care Provider Acti ve Start: December 04, 2024 Dr. Sean Thornton DO Admit Provider Active Start: December 04, 2024 Dr. Sean Thornton DO Other Provider Active Start: December 04, 2024 Dr. Savi Patel MD Other Provider Active St art: December 04, 2024 Dr. Marga Butcher MD Other Provider Active Star t: December 04, 2024 Dr. Elias Arevalo MD Attending Provider Active S tart: December 04, 2024 Team Status: Active Member Role/Relationship Status Dates Nikos Lake MD Emergency Provider Active Star t: December 04, 2024 Dr. Linda Mao MD Primary Care Provider Acti ve Start: December 04, 2024 Dr. Sean Thornton DO Admit Provider Active Start: December 04, 2024 Dr. Sean Thornton DO Attending Provider Active Start: December 04, 2024 Dr. Sean Thornton DO Other Provider Active Start: December 04, 2024 Dr. Savi Patel MD Other Provider Active St art: December 04, 2024 Dr. Marga Butcher MD Other Provider Active Star t: December 04, 2024 Team Status: Inactive Member Role/Relationship Status Dates Nikos Lake MD Emergency Provider Active Star t: December 02, 2024 End: December 06, 2024 Dr. Linda Mao MD Primary Care Provider Acti ve Start: December 02, 2024 End: December 06, 2024 Dr. Sean Thornton DO Admit Provider Active Start: December 02, 2024 End: December 06, 2024 Dr. Sean Thornton DO Other Provider Active Start: December 02, 2024 End: December 06, 2024 Dr. Savi Patel MD Other Provider Active St art: December 02, 2024 End: December 06, 2024 Dr. Marga Butcher MD Other Provider Active Star t: December 02, 2024 End: December 06, 2024 Dr. Ajith Quiñones MD Attending Provider Active Start: December 02, 2024 End: December 06, 2024 Team Status: Active Member Role/Relationship Status Dates Nikos Lake MD Emergency Provider Active Star t: December 05, 2024 Dr. Linda Mao MD Primary Care Provider Acti ve Start: December 05, 2024 Dr. Sean Thornton DO Admit Provider Active Start: December 05, 2024 Dr. Sean Thornton DO Other Provider Active Start: December 05, 2024 Dr. Savi Patel MD Other Provider Active St art: December 05, 2024 Dr. Marga Butcher MD Other Provider Active Star t: December 05, 2024 Dr. Ajith Quiñones MD Other Provider Active Star t: December 05, 2024 Dr. Elias Arevalo MD Attending Provider Active S tart: December 05, 2024 Team Status: Active Member Role/Relationship Status Dates Nikos Lake MD Emergency Provider Active Star t: December 05, 2024 Dr. Linda Mao MD Primary Care Provider Acti ve Start: December 05, 2024 Dr. Sean Thornton DO Admit Provider Active Start: December 05, 2024 Dr. Sean Thornton DO Other Provider Active Start: December 05, 2024 Dr. Savi Patel MD Other Provider Active St art: December 05, 2024 Dr. Marga Butcher MD Other Provider Active Star t: December 05, 2024 Dr. Ajith Quiñones MD Attending Provider Active Start: December 05, 2024 Dr. Ajith Quiñones MD Other Provider Active Star t: December 05, 2024 Team Status: Active Member Role/Relationship Status Dates Nikos Lake MD Emergency Provider Active Star t: December 06, 2024 Dr. Linda Mao MD Primary Care Provider Acti ve Start: December 06, 2024 Dr. Sean Thornton DO Admit Provider Active Start: December 06, 2024 Dr. Sean Thornton DO Other Provider Active Start: December 06, 2024 Dr. Savi Patel MD Other Provider Active St art: December 06, 2024 Dr. Marga Butcher MD Other Provider Active Star t: December 06, 2024 Dr. Ajith Quiñones MD Other Provider Active Star t: December 06, 2024 Dr. Elias Arevalo MD Attending Provider Active S tart: December 06, 2024 Team Status: Active Member Role/Relationship Status Dates Nikos Lake MD Emergency Provider Active Star t: December 06, 2024 Dr. Linda Mao MD Primary Care Provider Acti ve Start: December 06, 2024 Dr. Sean Thornton DO Admit Provider Active Start: December 06, 2024 Dr. Sean Thornton DO Other Provider Active Start: December 06, 2024 Dr. Savi Patel MD Other Provider Active St art: December 06, 2024 Dr. Marga Butcher MD Other Provider Active Star t: December 06, 2024 Dr. Ajith Quiñones MD Attending Provider Active Start: December 06, 2024 Dr. Ajith Quiñones MD Other Provider Active Star t: December 06, 2024 Team Status: Active Member Role/Relationship Status Dates Dr. Linda Mao MD Primary Care Provider Acti ve Start: December 01, 2024 Joselyn Brody MD Attending Provider Active Start: December 01, 2024 Dr. Marga Butcher MD Referring Provider Active Start: December 01, 2024 Team Status: Inactive Member Role/Relationship Status Dates Nikos Lake MD Emergency Provider Active Star t: December 02, 2024 End: December 06, 2024 Dr. Linda Mao MD Primary Care Provider Acti ve Start: December 02, 2024 End: December 06, 2024 Dr. Sean Thornton DO Admit Provider Active Start: December 02, 2024 End: December 06, 2024 Dr. Sean Thornton DO Other Provider Active Start: December 02, 2024 End: December 06, 2024 Dr. Savi Patel MD Other Provider Active St art: December 02, 2024 End: December 06, 2024 Dr. Marga Butcher MD Other Provider Active Star t: December 02, 2024 End: December 06, 2024 Dr. Ajith Quiñones MD Attending Provider Active Start: December 02, 2024 End: December 06, 2024 Team Status: Active Member Role/Relationship Status Dates Nikos Lake MD Emergency Provider Active Star t: December 02, 2024 Dr. Linda Mao MD Primary Care Provider Acti ve Start: December 02, 2024 Dr. Sean Thornton DO Admit Provider Active Start: December 02, 2024 Dr. Sean Thornton DO Other Provider Active Start: December 02, 2024 Dr. Marga Butcher MD Attending Provider Active Start: December 02, 2024 Dr. Marga Butcher MD Other Provider Active Star t: December 02, 2024 Dr. Savi Patel MD Other Provider Active St art: December 02, 2024 Team Status: Active Member Role/Relationship Status Dates Nikos Lake MD Emergency Provider Active Star t: December 03, 2024 Dr. Linda Mao MD Primary Care Provider Acti ve Start: December 03, 2024 Dr. Sean Thornton DO Admit Provider Active Start: December 03, 2024 Dr. Sean Thornton DO Other Provider Active Start: December 03, 2024 Dr. Marga Butcher MD Attending Provider Active Start: December 03, 2024 Dr. Marga Butcher MD Other Provider Active Star t: December 03, 2024 Dr. Savi Patel MD Other Provider Active St art: December 03, 2024 Team Status: Active Member Role/Relationship Status Dates Nikos Lake MD Emergency Provider Active Star t: December 03, 2024 Dr. Linda Mao MD Primary Care Provider Acti ve Start: December 03, 2024 Dr. Sean Thornton DO Admit Provider Active Start: December 03, 2024 Dr. Sean Thornton DO Other Provider Active Start: December 03, 2024 Dr. Marga Butcher MD Other Provider Active Star t: December 03, 2024 Dr. Savi Patel MD Other Provider Active St art: December 03, 2024 Dr. Elias Arevalo MD Attending Provider Active S tart: December 03, 2024 Team Status: Active Member Role/Relationship Status Dates Dr. Linda Mao MD Primary Care Provider Acti ve Start: December 04, 2024 Dr. Michael Wright MD Attending Provider Active S tart: December 04, 2024 Team Status: Inactive Member Role/Relationship Status Dates Dr. Linda Mao MD Primary Care Provider Acti ve Start: December 04, 2024 End: December 04, 2024 Dr. Linda Mao MD Referring Provider Active Start: December 04, 2024 End: December 04, 2024 Iza Pagan Attending Provider Active Start: Yann 2024 End: December 04, 2024 Team Status: Active Member Role/Relationship Status Dates Nikos Lake MD Emergency Provider Active Star t: December 04, 2024 Dr. Linda Mao MD Primary Care Provider Acti ve Start: December 04, 2024 Dr. Sean Thornton DO Admit Provider Active Start: December 04, 2024 Dr. Sean Thornton DO Other Provider Active Start: December 04, 2024 Dr. Savi Patel MD Other Provider Active St art: December 04, 2024 Dr. Marga Butcher MD Other Provider Active Star t: December 04, 2024 Dr. Elias Arevalo MD Attending Provider Active S tart: December 04, 2024 Team Status: Active Member Role/Relationship Status Dates Nikos Lake MD Emergency Provider Active Star t: December 04, 2024 Dr. Linda Mao MD Primary Care Provider Acti ve Start: December 04, 2024 Dr. Sean Thornton DO Admit Provider Active Start: December 04, 2024 Dr. Sean Thornton DO Attending Provider Active Start: December 04, 2024 Dr. Sean Thornton DO Other Provider Active Start: December 04, 2024 Dr. Savi Patel MD Other Provider Active St art: December 04, 2024 Dr. Marga Butcher MD Other Provider Active Star t: December 04, 2024 Team Status: Active Member Role/Relationship Status Dates Nikos Lake MD Emergency Provider Active Star t: December 05, 2024 Dr. Linda Mao MD Primary Care Provider Acti ve Start: December 05, 2024 Dr. Sean Thornton DO Admit Provider Active Start: December 05, 2024 Dr. Sean Thornton DO Other Provider Active Start: December 05, 2024 Dr. Savi Patel MD Other Provider Active St art: December 05, 2024 Dr. Marga Butcher MD Other Provider Active Star t: December 05, 2024 Dr. Ajith Quiñones MD Other Provider Active Star t: December 05, 2024 Dr. Elias Arevalo MD Attending Provider Active S tart: December 05, 2024 Team Status: Active Member Role/Relationship Status Dates Nikos Lake MD Emergency Provider Active Star t: December 05, 2024 Dr. Linda Mao MD Primary Care Provider Acti ve Start: December 05, 2024 Dr. Sean Thornton DO Admit Provider Active Start: December 05, 2024 Dr. Sean Thornton DO Other Provider Active Start: December 05, 2024 Dr. Savi Patel MD Other Provider Active St art: December 05, 2024 Dr. Marga Butcher MD Other Provider Active Star t: December 05, 2024 Dr. Ajith Quiñones MD Attending Provider Active Start: December 05, 2024 Dr. Ajith Quiñones MD Other Provider Active Star t: December 05, 2024 Team Status: Active Member Role/Relationship Status Dates Nikos Lake MD Emergency Provider Active Star t: December 06, 2024 Dr. Linda Mao MD Primary Care Provider Acti ve Start: December 06, 2024 Dr. Sean Thornton DO Admit Provider Active Start: December 06, 2024 Dr. Sean Thornton DO Other Provider Active Start: December 06, 2024 Dr. Savi Patel MD Other Provider Active St art: December 06, 2024 Dr. Marga Butcher MD Other Provider Active Star t: December 06, 2024 Dr. Ajith Quiñones MD Other Provider Active Star t: December 06, 2024 Dr. Elias Arevalo MD Attending Provider Active S tart: December 06, 2024 Team Status: Active Member Role/Relationship Status Dates Nikos Lake MD Emergency Provider Active Star t: December 06, 2024 Dr. Linda Mao MD Primary Care Provider Acti ve Start: December 06, 2024 Dr. Sean Thornton DO Admit Provider Active Start: December 06, 2024 Dr. Sean Thornton DO Other Provider Active Start: December 06, 2024 Dr. Savi Patel MD Other Provider Active St art: December 06, 2024 Dr. Marga Butcher MD Other Provider Active Star t: December 06, 2024 Dr. Ajith Quiñones MD Attending Provider Active Start: December 06, 2024 Dr. Ajith Quiñones MD Other Provider Active Star t: December 06, 2024 Team Status: Inactive Member Role/Relationship Status Dates Dr. Linda Mao MD Primary Care Provider Acti ve Start: December 04, 2024 End: December 04, 2024 Dr. Elias Arevalo MD Attending Provider Active S tart: December 04, 2024 End: December 04, 2024 Team Status: Inactive Member Role/Relationship Status Dates Dr. Linda Mao MD Primary Care Provider Acti ve Start: December 04, 2024 End: December 04, 2024 Dr. Linda Mao MD Referring Provider Active Start: December 04, 2024 End: December 04, 2024 Iza Pagan Attending Provider Active Start: [id number] End: December 04, 2024 Team Status: Active Member Role/Relationship Status Dates Nikos Lake MD Emergency Provider Active Star t: December 04, 2024 Dr. Linda Mao MD Primary Care Provider Acti ve Start: December 04, 2024 Dr. Sean Thornton DO Admit Provider Active Start: December 04, 2024 Dr. Sean Thornton DO Other Provider Active Start: December 04, 2024 Dr. Savi Patel MD Other Provider Active St art: December 04, 2024 Dr. Marga Butcher MD Other Provider Active Star t: December 04, 2024 Dr. Elias Arevalo MD Attending Provider Active S tart: December 04, 2024 Team Status: Active Member Role/Relationship Status Dates Nikos Lake MD Emergency Provider Active Star t: December 04, 2024 Dr. Linda Mao MD Primary Care Provider Acti ve Start: December 04, 2024 Dr. Sean Thornton DO Admit Provider Active Start: December 04, 2024 Dr. Sean Thornton DO Attending Provider Active Start: December 04, 2024 Dr. Sean Thornton DO Other Provider Active Start: December 04, 2024 Dr. Savi Patel MD Other Provider Active St art: December 04, 2024 Dr. Marga Bucther MD Other Provider Active Star t: December 04, 2024 Team Status: Active Member Role/Relationship Status Dates Nikos Lake MD Emergency Provider Active Star t: December 05, 2024 Dr. Linda Mao MD Primary Care Provider Acti ve Start: December 05, 2024 Dr. Sean Thornton DO Admit Provider Active Start: December 05, 2024 Dr. Sean Thornton DO Other Provider Active Start: December 05, 2024 Dr. Savi Patel MD Other Provider Active St art: December 05, 2024 Dr. Marga Butcher MD Other Provider Active Star t: December 05, 2024 Dr. Ajith Quiñones MD Other Provider Active Star t: December 05, 2024 Dr. Elias Arevalo MD Attending Provider Active S tart: December 05, 2024 Team Status: Active Member Role/Relationship Status Dates Nikos Lake MD Emergency Provider Active Star t: December 05, 2024 Dr. Linda Mao MD Primary Care Provider Acti ve Start: December 05, 2024 Dr. Sean Thornton DO Admit Provider Active Start: December 05, 2024 Dr. Sean Thornton DO Other Provider Active Start: December 05, 2024 Dr. Savi Patel MD Other Provider Active St art: December 05, 2024 Dr. Marga Butcher MD Other Provider Active Star t: December 05, 2024 Dr. Ajith Quiñones MD Attending Provider Active Start: December 05, 2024 Dr. Ajith Quiñones MD Other Provider Active Star t: December 05, 2024 Team Status: Active Member Role/Relationship Status Dates Nikos Lake MD Emergency Provider Active Star t: December 06, 2024 Dr. Linda Mao MD Primary Care Provider Acti ve Start: December 06, 2024 Dr. Sean Thornton , Admit Provider Active Start: December 06, 2024 Dr. Sean Thornton DO Other Provider Active Start: December 06, 2024 Dr. Savi Patel MD Other Provider Active St art: December 06, 2024 Dr. Marga Butcher MD Other Provider Active Star t: December 06, 2024 Dr. Ajith Quiñones MD Other Provider Active Star t: December 06, 2024 Dr. Elias Arevalo MD Attending Provider Active S tart: December 06, 2024 Team Status: Active Member Role/Relationship Status Dates Nikos Lake MD Emergency Provider Active Star t: December 06, 2024 Dr. Linda Mao MD Primary Care Provider Acti ve Start: December 06, 2024 Dr. Sean Thornton DO Admit Provider Active Start: December 06, 2024 Dr. Sean Thornton DO Other Provider Active Start: December 06, 2024 Dr. Savi Patel MD Other Provider Active St art: December 06, 2024 Dr. Marga Butcher MD Other Provider Active Star t: December 06, 2024 Dr. Ajith Quiñones MD Attending Provider Active Start: December 06, 2024 Dr. Ajith Quiñones MD Other Provider Active Star t: December 06, 2024 Team Status: Active Member Role/Relationship Status Dates Dr. Linda Mao MD Primary Care Provider Acti ve Start: December 19, 2024 Dr. Linda Mao MD Referring Provider Active Start: December 19, 2024 WISAM Quijano Attending Provider Active Star t: December 19, 2024 Team Status: Inactive Member Role/Relationship Status Dates Dr. Linda Mao MD Primary Care Provider Acti ve Start: December 19, 2024 End: December 19, 2024 Dr. Elias Arevalo MD Attending Provider Active S tart: December 19, 2024 End: December 19, 2024 Team Status: Inactive Member Role/Relationship Status Dates Dr. Linda Mao MD Primary Care Provider Acti ve Start: December 19, 2024 End: December 19, 2024 Dr. Linda Mao MD Referring Provider Active Start: December 19, 2024 End: December 19, 2024 WISAM Quijano Attending Provider Active Star t: December 19, 2024 End: December 19, 2024 Team Status: Active Member Role/Relationship Status Dates Macie Oleary MD Primary Care Provider Active Team Status: Active Member Role/Relationship Status Dates Macie Oleary MD Primary Care Provider Active St art: December 22, 2024 Dr. Leena Serra MD Attending Provider Active Start: December 22, 2024 Dr. Leena Serra MD Referring Provider Active Start: December 22, 2024 Team Status: Inactive Member Role/Relationship Status Dates Dr. Linda Mao MD Referring Provider Active Start: December 27, 2024 End: December 27, 2024 Holli JOEL, PA Attending Provider Active Start: December 27, 2024 End: December 27, 2024 Macie Oleary MD Primary Care Provider Active St art: December 27, 2024 End: December 27, 2024 Team Status: Active Member Role/Relationship Status Dates Dr. Linda Mao MD Primary Care Provider Acti ve Start: December 04, 2024 Dr. Michael Wright MD Attending Provider Active S tart: December 04, 2024 Dr. Marga Butcher MD Referring Provider Active Start: December 04, 2024 Team Status: Inactive Member Role/Relationship Status Dates Macie Oleary MD Primary Care Provider Active St art: December 22, 2024 End: December 22, 2024 Dr. Leena Serra MD Attending Provider Active Start: December 22, 2024 End: December 22, 2024 Dr. Leena Serra MD Referring Provider Active Start: December 22, 2024 End: December 22, 2024 FOR RECORDS PERTAINING TO PATIENTS WHO [...] BE BASED ON THE PRIMARY CLINICAL RECORDS. [facility]. provides no warranty or guarantee of the accuracy or completeness of information in this document.
[2025-01-01 11:09] LABS: Partial Thromboplast Time 30.4 Seconds (24.1-36.2); Prothrombin Time (Protime)PT. 34.4 SECONDS (11.7-14.9)
[2025-01-01 11:17] LABS: Magnesium 2.5 mg/dL (1.5-2.2)
[2025-01-01 11:29] LABS: Pro- Brain NATRIURETIC PEPTIDE 30896 pg/mL (<=1800); Troponin T High Sensitivity 49 ng/L (<=14)
[2025-01-01 11:43] LABS: AST(SGOT) 245 U/L (<=31); Alanine Aminotransfer ALT/SGPT 278 U/L (<=34); Albumin, Serum 4.1 g/dL (3.4-4.8); Alkaline Phosphatase 82 U/L (35-104); Anion Gap 16 (5-15); BUN 74 mg/dL (4-19); BUN/Creat Ratio 34.5 RATIO (10-20); Calcium,Total 9.0 mg/dL (7.6-11.0); Carbon Dioxide 13.9 mmol/L (21.0-32.0); Chloride 101 mmol/L (98-108); Estimated Creatinine Clearance 16.28 ml/min (50-250); Globulin 2.1 g/dL (2.2-4.2); Glucose 81 mg/dL (70-99); Potassium 5.0 mmol/L (3.3-5.1)
--- NOTE | 2025-01-01 11:47 | US_ITS ---
PROCEDURE: ABDOMEN LIMITED 01/01/2025 REASON FOR EXAM: ELEVATED LIVER ENZYMES TECHNIQUE: Procedure Code: USABDL Modality: US Procedure: ABDOMEN LIMITED COMPARISON: 08/19/2022 FINDINGS: Exam reportedly limited by patient's clinical status. Liver: Grossly unremarkable echotexture. Lobulated contours reported by access rep on real-time scanning; no definite serosal nodularity on images obtained. 13.3 cm in length. Gallbladder: Wall thickening to 5 mm. Trace pericholecystic fluid may be related to free fluid. No visualized stones. Reportedly, sonographic Romero's was negative. Biliary tree: Unremarkable. CBD measures 3 mm. Pancreas: Partially obscured by shadowing bowel gas, grossly unremarkable as visualized. Right kidney: Unremarkable. 9.2 cm in length. Other: At least trace to small volume perihepatic free fluid. US/Abdomen Limited IMPRESSION: 1. Nonspecific gallbladder wall thickening without visualized cholelithiasis or positive reported sonographic Romero's sign to confirm acute cholecystitis, although this should be confirmed by clinician jesus savage. In addition to acute/chronic cholecystitis, gallbladder wall thickening can also be seen in the setting of 3rd spacing, tamar ous congestion, or may be reactive to a primarily hepatic process amongst other etiologies. Correlate with presentation/exam and if there is clinical ambiguity, consider HIDA. 2. Question lobulated hepatic contours as may be seen in chronic liver disease. Correlate with clinical and laboratory evaluation. 3. At least trace to small volume nonspecific perihepatic free fluid. Trace pe richolecystic fluid may be a related finding. 4. Additional description as above. Reading Location: [id number]
[2025-01-01 12:34] LABS: CPK Total, Creatine Kinase 122 U/L (24-195)
[2025-01-01 12:49] LABS: Lipase 44 U/L (13-75)
--- NOTE | 2025-01-01 13:37 | CON.PCM.CA_ITS ---
Assessment & Plan Assessment/Plan (1) Pacemaker: (2) Atrial fibrillation: (3) Congestive heart failure (CHF): QUALIFIERS: Heart failure type: systolic Heart failure chronicity: chronic Qualified Code(s): I50.22 - Chronic systolic (congestive) heart failure (4) Mild chronic obstructive pulmonary disease: (5) History of malignant neoplasm of right breast: (6) History of coronary artery stent placement: (7) Generalized weakness: PLAN: 89-year-old patient presented to the ED here at [facility] complaining of generalized weakness denied any symptoms of chest pain or shortness of breath. She has a poor p.o. intake. Patient has multiple medical comorbidities and she regular follow-up with the cardiology outpatient clinic She had a history of CAD with PCI and stent of the RCA that was done in April 2020 and the last cardiac catheterization in January 2021 patency of the RCA stent was noted with no significant left main, LAD or circumflex atherosclerosis Patient recent seen in December had an echocardiogram which showed EF in the range of around 35 with moderate LV systolic dysfunction And a pacemaker lead was noted. Patient has a history of atrial fibrillation and has been on amiodarone dosage was increased recently due to frequent burden of A-fib and patient also was on beta-kemal metoprolol in addition to low-dose anticoagulation Eliquis. On this admission I review all the current evaluation The EKG showed paced ventricular rhythm Interrogation of the pacemaker/Do revealed under sensing of the atrial lead on the chest x-ray both atrial and ventricular leads are in place Adjustment of the atrial sensing and capture was made in the ED Review of the current lab revealed evidence thrombocytopenia with a platelet count of 64 Previous platelet count in the range of 79?2 93. Patient has been on a low-dose anticoagulation with apixaban for the paroxysmal atrial fibrillation and has a previous synchronized cardioversion. The pacemaker was placed due to complete heart block Noted patient has ASHLI with BUN of 74 creatinine is 2.15. Abnormal LFT with AST of 245 total bilirubin of 2.39 and ALT of 278 Abdominal ultrasound for liver evaluation. Cardiac care plan; 89-year-old very sick patient with multiple medical comorbidities From cardiac standpoint patient has moderate LV dysfunction EF around 35 History of complete heart block with permanent pacemaker Atrial fibrillation Adjustment was made for the pacemaker parameters for the atrial lead. Patient has been on amiodarone 200 mg twice daily would recommend to discontinue due to the abnormal LFT. As well noted elevated BUN and creatinine likely cardiorenal with dehydration. Would recommend to hold on the cardiac medication which will include them amiodarone Farxiga Aldactone Would recommend to hydrate the patient and to monitor electrolytes and renal function. Will follow-up clinically. Austin Marie MD,[facility] sprinkler repair technician HPI Consult Data Date of Consult: 01/01/25 HPI Narrative Reason for Consultation: Generalized weakness/systolic heart failure/atrial lead under sensing HPI Narrative: ROBERTO RASMUSSEN, is a 89 F who presents [facility] Medical History (Updated 01/01/25 @ 13:[address] Austin Marie MD) Hypotension Anxiety Depression Hypothyroidism Non-smoker Atrial fibrillation Congestive heart failure (CHF) Pacemaker Myocardial infarct Shingles Atrial tachycardia Presence of permanent cardiac pacemaker CKD (chronic kidney disease) stage 3, GFR 30-59 ml/min Non-rheumatic mitral regurgitation Mitral valve insufficiency Rheumatoid arthritis STEMI (ST elevation myocardial infarction) Atherosclerosis of coronary artery of [place] heart without angina pectoris History of coronary artery stent placement (04/12/20) Osteomyelitis of left lower extremity 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 Colonization status Contamination 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 Venous insufficiency (chronic) (peripheral) Delayed wound healing Other specified peripheral vascular diseases Non-pressure chronic ulcer of unspecified part of left lower leg with fat layer exposed Staph infection Left ankle swelling History of malignant neoplasm of right breast Fx cervical vert NOS-closed Fx clavicle Arthritis Malignant neoplasm of right female breast Osteopenia Home Medications ?Medication ?Instructions ?Recorded ?Last Taken ?Type calcium carbonate 1,000 mg PO DAILY@0800 PRN 1 06/08/22 11/29/24 History indigestion dapagliflozin propanediol 10 mg 10 mg PO QAM heart #90 tabs 02/01/24 12/31/24 Rx tablet (Farxiga) spironolactone 25 mg tablet 25 mg PO QAM heart #90 tab s 06/20/24 12/31/24 Rx apixaban 2.5 mg tablet 2.5 mg PO BID blood thinner #180 09/12/24 12/31/24 Rx tabs amiodarone 200 mg tablet 200 mg PO BID #180 tabs 12/0212/31/24 Rx furosemide 40 mg tablet 40 mg PO QDAY PRN edema 12/02 11/24 Unknown History levothyroxine 100 mcg tablet 100 mcg PO QDAY 12/27/24 12/30/24 History (Synthroid) metoprolol tartrate 25 mg tablet 25 mg PO BID #60 tabs 12/27/24 12/31/24 Rx tocilizumab-aazg 162 mg/0.9 mL 162 mg subcut Q7D 12/2712/18/24 History subcutaneous syringe ([place]) Allergy/AdvReac Type Severity Reaction Status Date / Time [id number] Reductase Allergy Other Verified 01/01/25 09:08 Inhibitor ticagrelor (From Brilinta) AdvReac Severe Severe Verified 01/01/25 09:08 dyspnea on exertion Family History Father Clotting disorder Heart disease Surgical History History of cardioversion (01/27/23) History of ankle surgery History of left heart catheterization (LHC) (~01/02/21) Presence of coronary angioplasty implant and graft (~04/12/20) History of arthroplasty of left ankle History of tubal ligation History of mastectomy Social History Smoking Status: Never smoker alcohol intake: never substance use type: does not use caffeine: Yes Physical Exam Cardio Cardio Narrative: I saw the patient in the ED Complaining of generalized weakness and poor p.o. intake secured entrance monitor showed paced ventricular rhythm with heart rate around 58 Cardiac exam S1-S2 is regular Chest exam diminished air entry bilaterally Examination lower extremity +1 lower extremity edema. Objective Data Vital Signs: Vital Signs Temp Pulse Resp BP Pulse Ox O2 Del Method 97.4 F L 58 L 18 110/78 98 Room Air 01/01/25 09:08 01/01/25 11:06 01/01/25 11:06 01/01/25 11:06 01/01/25 11:06 01/01/25 11:06 Oxygen Delivery Method Room Air Weight: 127 lb 13.89 oz Body Mass Index (BMI) 21.2 Intake & Output: Intake and Output for Last 24 Hours 12/30/24 12/31/24 01/01/25 23:59 23:59 23:59 Intake Total 500 / 500 Balance 500 / 500 Lab / Micro Data 01/01/25 09:38 01/01/25 10:45 Labs: Laboratory Results - last 24 hr 01/01/25 09:38: WBC 10.7, RBC 4.86, Hgb 16.6 H, Hct 48.5 H, MCV 99.8 H, MCH 34.2 H, MCHC 34.2, RDW Std Deviation 56.5 H, RDW Coeff of Sharad 15.8 H, Plt Count 64 L, MPV 12.7 H, Immature Gran % (Auto) 0.500, Neut % (Auto) 79.6 H, Lymph % (Auto) 9.9 L, [place] % (Auto) 9.7, Eos % (Auto) 0.2, Baso % (Auto) 0.1, Absolute Neuts (auto) 8.5 H, Absolute Lymphs (auto) 1.06, Nucleated RBC % 0, PT Cancelled, INR Cancelled, APTT Cancelled, Sodium Cancelled, Potassium Cancelled, Chloride Cancelled, Carbon Dioxide Cancelled, Anion Gap Cancelled, BUN Cancelled, Creatinine Cancelled, Estim Creat Clear Calc Cancelled, Est GFR (MDRD) Non-Af Cancelled, BUN/Creatinine Ratio Cancelled, Glucose Cancelled, Calcium Cancelled, Magnesium Cancelled, Total Bilirubin Cancelled, AST Cancelled, ALT Cancelled, Alkaline Phosphatase Cancelled, Troponin T High Sens Cancelled, NT pro BNP II Cancelled, Total Protein Cancelled, Albumin Cancelled, Globulin Cancelled, Albumin/Globulin Ratio Cancelled, TSH Cancelled, Free T4 Cancelled 01/01/25 09:46: Urine Color Yellow, Urine Clarity Sl. Cloudy, Urine pH 5.0, Ur Specific [place] 1.020, Urine Protein 100 H, Urine Glucose (UA) 250 H, Urine Ketones Negative, Urine Occult Blood 10 H, Urine Nitrite Negative, Urine Bilirubin Negative, Urine Urobilinogen 1 H, Ur Leukocyte Esterase Negative, Urine RBC 0-5 SEEN, Urine WBC 0-5 SEEN, Ur Squamous Epith Cells 0-5 SEEN, Urine Bacteria RARE, Hyaline Casts 0-5 SEEN, Urine Mucus 1+ 01/01/25 10:21: PT Cancelled, INR Cancelled, APTT Cancelled 01/01/25 10:45: PT 34.4 H, INR 3.3, APTT 30.4, Sodium 132 L, Potassium 5.0, Chloride 101, Carbon Dioxide 13.9 L, Anion Gap 16 H, BUN 74 H, Creatinine 2.15 H , Estim Creat Clear Calc 16.28 L, Est GFR (MDRD) Non-Af 22 L, BUN/Creatinine Ratio 34.5 H, Glucose 81, Calcium 9.0, Magnesium 2.5 H, Total Bilirubin 2.39 H, AST 245 H, ALT 278 H, Alkaline Phosphatase 82, Total Creatine Kinase 122, T roponin T High Sens 49 H D, [place] [address] H, Total Protein 6.3, Albumin 4.1, Globulin 2.1 L, Albumin/Globulin Ratio 1.9, Lipase 44, TSH 0.987, Free T4 2.50 H Cardiology Labs/Tests 01/01/25 09:38: WBC 10.7, RBC 4.86, Hgb 16.6 H, Hct 48.5 H, MCV 99.8 H, MCH 34.2 H, MCHC 34.2, Plt Count 64 L, MPV 12.7 H, Immature Gran % (Auto) 0.500, Neut % (Auto) 79.6 H, Lymph % (Auto) 9.9 L, [place]ites[place] % (Auto) 9.7, Eos % (Auto) 0.2, Baso % (Auto) 0.1, Absolute Neuts (auto) 8.5 H, Nucleated RBC % 0, PT Cancelled, INR Cancelled, APTT Cancelled, Sodium Cancelled, Potassium Cancelled, Chloride Cancelled, Carbon Dioxide Cancelled, Anion Gap Cancelled, BUN Cancelled, Creatinine Cancelled, Est GFR (MDRD) Non-Af Cancelled, BUN/Creatinine Ratio Cancelled, Glucose Cancelled, Calcium Cancelled, Magnesium Cancelled, Total Bilirubin Cancelled 01/01/25 09:46: Urine Color Yellow, Urine Clarity Sl. Cloudy, Urine pH 5.0, Ur Specific [place] 1.020, Urine Protein 100 H, Urine Glucose (UA) 250 H, Urine Ketones Negative, Urine Occult Blood 10 H, Urine Nitrite Negative, Urine Bilirubin Negative, Urine Urobilinogen 1 H, Ur Leukocyte Esterase Negative, Urine RBC 0-5 SEEN, Urine WBC 0-5 SEEN 01/01/25 10:21: PT Cancelled, INR Cancelled, APTT Cancelled 01/01/25 10:45: PT 34.4 H, INR 3.3, APTT 30.4, Sodium 132 L, Potassium 5.0, Chloride 101, Carbon Dioxide 13.9 L, Anion Gap 16 H, BUN 74 H, Creatinine 2.15 H , Est GFR (MDRD) Non-Af 22 L, BUN/Creatinine Ratio 34.5 H, Glucose 81, Calcium 9.0, Magnesium 2.5 H, Total Bilirubin 2.39 H Rhythm: EKG: ECHO: Stress Test: Cardiac Cath: PCI: CT Surgery: Holter monitor: EPS: PPM: CXR: Chest CT Scan: Radiography Diagnostic Testing: Radiology Impression Chest X-Ray 01/01/25 09:21 IMPRESSION: Subsegmental atelectasis and small volume pleural fluid right lung base. Cardiac enlargement. Reading Location: [id number] Risk Score for UA/STEMI Assesmment (YES = 1) Risk Stratification Applicable: No
[2025-01-01 14:31] LABS: Troponin T High Sens 2 HR 49 ng/L (<=14)
--- NOTE | 2025-01-01 14:37 | PCM.HP.STD ---
HPI - General General Date of Admission: 01/01/25 Date of Service: 01/01/25 Chief Complaint: Generalized weakness and light headedness HPI Narrative ROBERTO RASMUSSEN, is a 89-year-old female history of coronary artery disease with PCI, RA, paroxysmal atrial fibrillation on Eliquis, heart failure with reduced ejection fraction, pacemaker, hypothyroidism who presented to [facility] ED 01/01/2025 for generalized weakness and lightheadedness over the past 3 days. In the ED temp 97.4, heart rate 55, blood pressure 118/69, respiratory rate 22 and pulse ox 94% on room air. CBC with white count of 10.7, hemoglobin 16.6 and a platelet count of 64. Sodium of 132 with most recent sodium last month of 135, bicarb 13.9 with a gap of 16 and BUN of 74 with a creatinine 2.15 up from 1.39 last month, total bili 2.39, AST 245 and ALT 278. UA not suggestive of UTI, INR found to be 3.3 with a proBNP of 30,000 and a troponin of 49. TSH within normal limits. Magnesium high at 2.5. Chest x-ray with subsegmental atelectasis and small volume pleural fluid in the right lung base and cardiac enlargement. Abdominal ultrasound obtained due to elevated liver function tests which showed nonspecific gallbladder wall thickening without visualized cholelithiasis or positive sonographic Romero's then some trace to small volume nonspecific perihepatic fluid which could be related. Pacemaker was interrogated and there was a question of the atrial lead not working correctly, cardiology was contacted and spoke with her primary certified procedural coder and it was recommended that patient be admitted and no need for transfer at this time. Hospitalist contacted for mission. Patient seen with daughter at bedside. She had been admitted here early last month after a fall and it had her pacemaker interrogated and it had to be adjusted twice as it seemed that it had not been working right, ultimately patient said not much had been changing or improving so she said she felt better and was discharged home, has followed up with cardiology and had medication changes, also a week ago had a sore throat and was feeling generally unwell so she was placed on a Z-Gumaro and prednisone but is off of both of these now. Notes over the past 3 days she has been more weak and lightheaded and yesterday could not even lift her legs to take a step ultimately prompting family to bring her in today. Reports some slight shortness of breath with no chest pain, does have problems with chronically worsening vision, has some right ankle pain but denies fall. Has been off of RA medication for 1 week due to her illness. Denies any bowel or bladder changes, no abdominal pain. Does have somewhat poor p.o. intake. [facility] Medical History (Updated 01/01/25 @ 15:[address] Marga Butcher MD) Anxiety Arthritis Atherosclerosis of coronary artery of [place] heart without angina pectoris Atrial fibrillation Atrial tachycardia CKD (chronic kidney disease) stage 3, GFR 30-59 ml/min Colonization status Congestive heart failure (CHF) Contamination Delayed wound healing Depression Fx cervical vert NOS-closed Fx clavicle History of coronary artery stent placement (04/12/20) History of malignant neoplasm of right breast Hypotension Hypothyroidism 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 Left ankle swelling Malignant neoplasm of right female breast Mitral valve insufficiency Myocardial infarct Non-pressure chronic ulcer of unspecified part of left lower leg with fat layer exposed Non-rheumatic mitral regurgitation Non-smoker Osteomyelitis of left lower extremity Osteopenia Other specified peripheral vascular diseases Pacemaker Presence of permanent cardiac pacemaker Rheumatoid arthritis Shingles Staph infection STEMI (ST elevation myocardial infarction) Venous insufficiency (chronic) (peripheral) Home Medications ?Medication ?Instructions ?Recorded ?Last Taken ?Type calcium carbonate 1,000 mg PO DAILY@0800 PRN 04/07/23 11/29/24 History indigestion dapagliflozin propanediol 10 mg 10 mg PO QAM heart #90 tabs 02/01/24 12/31/24 Rx tablet (Farxiga) spironolactone 25 mg tablet 25 mg PO QAM heart #90 tabs 06/20/24 12/31/24 Rx apixaban 2.5 mg tablet 2.5 mg PO BID blood thinner #180 09/12/24 12/31/24 Rx tabs amiodarone 200 mg tablet 200 mg PO BID #180 tabs 12/27/24 12/31/24 Rx furosemide 40 mg tablet 40 mg PO QDAY PRN edema 12/27/24 Unknown History levothyroxine 100 mcg tablet 100 mcg PO QDAY 12/27/24 12/30/24 History (Synthroid) metoprolol tartrate 25 mg tablet 25 mg PO BID #60 tabs 12/27/24 12/31/24 Rx tocilizumab-aazg 162 mg/0.9 mL 162 mg subcut Q7D 12/27/24 12/18/24 History subcutaneous syringe ([place]) Allergy/AdvReac Type Severity Reaction Status Date / Time Ppudbpk-OAR-HfR Reductase Allergy Other Verified 01/01/25 09:08 Inhibitor ticagrelor (From Brilinta) AdvReac Severe Severe Verified 01/01/25 09:08 dyspnea on exertion Family History Father Clotting disorder Heart disease Surgical History History of ankle surgery History of arthroplasty of left ankle History of cardioversion (01/27/23) History of left heart catheterization (LHC) (~01/02/21) History of mastectomy History of tubal ligation Presence of coronary angioplasty implant and graft (~04/12/20) Social History Smoking Status: Never smoker alcohol intake: never substance use type: does not use caffeine: Yes ROS ROS Narrative General: Denies fever/chills HENT: Denies headache, denies stuffy nose, did have sore throat but this is beginning to feel better EYES: Has had some subacute worsening in vision Resp: Denies cough, does have some shortness of breath Cardiac: Denies chest pain GI: Denies abdominal pain, denies changes in bowel, denies nausea/vomiting : Denies changes in urination Extremity: Has some chronic swelling in her legs MSK: Generalized weakness, some right ankle pain Neuro: Denies any numbness/tingling Heme: Denies any new bleeding or bruising Skin: Does get some red lumps on her right arm Psychiatric: Feels tired and fatigued Vital Signs Vital Signs Vital Signs: 01/01/25 09:08 01/01/25 09:14 01/01/25 11:06 Temperature 97.4 F L Temperature Source Oral Pulse Rate 55 L 58 L Respiratory Rate 22 H 18 Respiratory Effort Normal Respiratory Pattern Normal Blood Pressure 118/69 110/78 Blood Pressure Mean 85 88 Pulse Ox 94 98 Oxygen Delivery Method Room Air Room Air Weight Weight: 58 kg Body Mass Index (BMI) 21.2 Physical Exam Narrative General: Alert, overall answers most questions appropriately HEENT: Atraumatic, normocephalic Eyes: Anicteric, normal conjunctiva, extraocular movements grossly intact Neck: Supple Respiratory: No overt wheezes, rhonchi, crackles, normal respiratory effort Cardiovascular: Regular rate and rhythm GI: Soft, nontender, nondistended Extremities: 1+ lower extremity edema Musculoskeletal: Moving all extremities but diffusely weak, right ankle is painful Neuro: No overt focal neurological deficits Skin: Has some chronic changes in lower extremities Psych: Cooperative Results Lab / Micro Data 01/01/25 09:38 01/01/25 10:45 Labs: Laboratory Results - last 24 hr 01/01/25 09:38: WBC 10.7, RBC 4.86, Hgb 16.6 H, Hct 48.5 H, MCV 99.8 H, MCH 34.2 H, MCHC 34.2, RDW Std Deviation 56.5 H, RDW Coeff of [place]ad 15.8 H, Plt Count 64 L, MPV 12.7 H, Immature Gran % (Auto) 0.500, Neut % (Auto) 79.6 H, Lymph % (Auto) 9.9 L, [place] % (Auto) 9.7, Eos % (Auto) 0.2, Baso % (Auto) 0.1, Absolute Neuts (auto) 8.5 H, Absolute Lymphs (auto) 1.06, Nucleated RBC % 0, PT Cancelled, INR Cancelled, APTT Cancelled, Sodium Cancelled, Potassium Cancelled, Chloride Cancelled, Carbon Dioxide Cancelled, Anion Gap Cancelled, BUN Cancelled, Creatinine Cancelled, Estim Creat Clear Calc Cancelled, Est GFR (MDRD) Non-Af Cancelled, BUN/Creatinine Ratio Cancelled, Glucose Cancelled, Calcium Cancelled, Magnesium Cancelled, Total Bilirubin Cancelled, AST Cancelled, ALT Cancelled, Alkaline Phosphatase Cancelled, Troponin T High Sens Cancelled, NT pro BNP II Cancelled, Total Protein Cancelled, Albumin Cancelled, Globulin Cancelled, Albumin/Globulin Ratio Cancelled, TSH Cancelled, Free T4 Cancelled 01/01/25 09:46: Urine Color Yellow, Urine Clarity Sl. Cloudy, Urine pH 5.0, Ur Specific [place] 1.020, Urine Protein 100 H, Urine Glucose (UA) 250 H, Urine Ketones Negative, Urine Occult Blood 10 H, Urine Nitrite Negative, Urine Bilirubin Negative, Urine Urobilinogen 1 H, Ur Leukocyte Esterase Negative, Urine RBC 0-5 SEEN, Urine WBC 0-5 SEEN, Ur Squamous Epith Cells 0-5 SEEN, Urine Bacteria RARE, Hyaline Casts 0-5 SEEN, Urine Mucus 1+ 01/01/25 10:21: PT Cancelled, INR Cancelled, APTT Cancelled 01/01/25 10:45: PT 34.4 H, INR 3.3, APTT 30.4, Sodium 132 L, Potassium 5.0, Chloride 101, Carbon Dioxide 13.9 L, Anion Gap 16 H, BUN 74 H, Creatinine 2.15 H, Estim Creat Clear Calc 16.28 L, Est GFR (MDRD) Non-Af 22 L, BUN/Creatinine Ratio 34.5 H, Glucose 81, Calcium 9.0, Magnesium 2.5 H, Total Bilirubin 2.39 H, AST 245 H, ALT 278 H, Alkaline Phosphatase 82, Total Creatine Kinase 122, Troponin T High Sens 49 H D, [place] [address] H, Total Protein 6.3, Albumin 4.1, Globulin 2.1 L, Albumin/Globulin Ratio 1.9, Lipase 44, TSH 0.987, Free T4 2.50 H 01/01/25 13:33: Troponin T Hi Sens 2 Hr Cancelled 01/01/25 14:05: Troponin T Hi Sens 2 Hr 49 H Imaging Radiology Impression Chest X-Ray 01/01/25 09:21 IMPRESSION: Subsegmental atelectasis and small volume pleural fluid right lung base. Cardiac enlargement. Reading Location: [id number] Abdomen Ultrasound 01/01/25 11:47 IMPRESSION: 1. Nonspecific gallbladder wall thickening without visualized cholelithiasis or positive reported sonographic Romero's sign to confirm acute cholecystitis, although this should be confirmed by clinician exam. In addition to acute/chronic cholecystitis, gallbladder wall thickening can also be seen in the setting of 3rd spacing, venous congestion, or may be reactive to a primarily hepatic process amongst other etiologies. Correlate with presentation/exam and if there is clinical ambiguity, consider HIDA. 2. Question lobulated hepatic contours as may be seen in chronic liver disease. Correlate with clinical and laboratory evaluation. 3. At least trace to small volume nonspecific perihepatic free fluid. Trace pericholecystic fluid may be a related finding. 4. Additional description as above. Reading Location: [id number] Assessment & Plan Assessment/Plan (1) ASHLI (acute kidney injury): (2) Generalized weakness: (3) Right ankle pain: PLAN: Plan # Generalized weakness and lightheadedness - Multifactorial - Patient appears clinically dehydrated and has ASHLI, abnormal LFTs and low sodium - Cardiology recommended gentle hydration with caution given her heart failure but she does not appear overloaded despite her numbers and it is felt she is actually dehydrated - Judicious IVF - There is a question of pacemaker under sensing atrial leads but chest x-ray does appear to show atrial ventricular leads in place, atrial sensing was adjusted in the ED and capture was made - PT/OT # History of RA and right ankle flare -Patient with significant RA history on long-term injectables, presently tocilizumab, recently had months where she was not on any medication because they changed the recommended agent per her insurance and only recently started back on it but subsequently was taken off for the past week and given concerns for URI and had yet to resume -Given her platelets less than 100,000 ALT/AST greater than 1.5 times upper limit of normal we will hold off on reinitiation presently -Has what sound to be some rheumatoid nodules w/ R arm and right ankle pain and fatigue -She does not think that she hurt her ankle but she is unsure -Will obtain right ankle x-ray -Possible that this is due to her underlying RA but cannot yet say definitively -She is presently afebrile and white blood cell count 10.7 however it is warm and painful and pt was on tocilizumab so will check RF, anti-CCP, Pro-Aleksey, ESR, CRP, uric acid -pain control and PT/OT # ASHLI -Creatinine 2.15 up from 1.39 last month -Possibly cardiorenal -Patient is also clinically dehydrated -Gentle hydration -Repeat in the a.m. -Holding Farxiga and Aldactone per cardiology recommendations # Abnormal liver function tests -Could be elevated due to some congestion from CHF +/- amiodarone +/- her tocilizumab -No abdominal pain or signs of gallbladder pathology, abdominal ultrasound did show some fluid but no sonographic Romero's or cholelithiasis to suggest acute cholecystitis -Holding amiodarone -Repeat liver function in the a.m. # Hyponatremia -Sodium 132, most recently on 12/22 sodium is 135 -Does not clinically appear overloaded and in fact appears dehydrated -This may be secondary to dehydration but patient does have complicated medical history and clinical status -If not improving with gentle hydration can consider further workup and/or management # Chronic heart failure with reduced ejection fraction -In December EF was around 35% with wall motion abnormalities and moderate LV systolic dysfunction -Cardiology evaluated in ED and recommended holding amiodarone, Farxiga, Aldactone and hydrating cautiously given her lab findings and clinical appearance of dehydration -Daily weights, I's and O's -Given last echo was done last month we will hold off on repeating # History of paroxysmal atrial fibrillation and complete heart block with permanent pacemaker -Pacemaker interrogated in the ED then and there was question of under sensing of atrial leads -This has been adjusted with atrial sensing and capture was made in ED -Cardiology recommended discontinuing amiodarone given her abnormal liver function tests -Will continue metoprolol and Eliquis #Hx of CAD -w/ previous stenting -Continue home beta-kemal and will continue Eliquis for now, if platelet count drops below 50k will need to hold Eliquis -Not on Statin d/t hx adverse effects # Thrombocytopenia -Chronic but is somewhat lower than baseline -Could be due to patient's tocilizumab which has recently been held due to URI -Repeat in a.m. -Continue Eliquis at this time but may need to consider holding/discontinuing if further drop in platelets # Elevated troponin -Troponin of 49, similar to what was in the beginning of December, suspect patient's underlying cardiomyopathy and ASHLI are causing/contributing -No chest pain, do not think this is primary ACS #Hypothyroidism -Continue Synthroid #DVT ppx: Patient is on Eliquis, will continue Marga Butcher MD Time spent in the patient's overall evaluation, decision-making process, review of diagnostic data, adjustment of management, discussion with other providers, nursing and ancillary staff involved in patient's care documentation, 80 Minutes Charges/Coding Visit Charges Inpatient E&M: 57230 Init Hosp L3
--- OUTSIDE RECORDS SUMMARY | 2025-01-01 14:47 | XMS RPT_ITS | CCD ---
Author Organization [facility] Care Team Providers Care Python Engineer Name Role Phone Teagan Hall Unavailable Unavailable [...] Care Provider Dr. Teagan Hall Referring Provider [phone] Dr. Matteo Jonas Attending Provider Roof UNDERWATER TRAPPER, UNDERWATER TRAPPER-Stephany Orourke Attending Provider Dr. Teagan Hall Primary Care Provider Dr. Teagan Hall Referring Provider Dr. Teagan Hall Primary Care Provider Dr. Teagan Hall Referring Provider Dr. Jimenez Shane Attending Provider Dr. Jimenez Shane Referring Provider [phone] Dr. Jimenez Shane Other Provider [phone] Michael Wright Attending Provider [phone] Teagan Hall Primary Care Provider Dr. Teagan Hall Referring Provider Dr. Jimenez Shane Attending Provider [phone] Dr. Jimenez Shane Referring Provider Dr. Jimenez Shane Other Provider [phone] Michael Wright Attending Provider [phone] Joshila, Teagan Rhonda Primary Care Provider MARCUS MELLO Referring Unavailabl e JOLLIFF, TEAGAN RHONDA Primary Care Unavailable MARCUS MELLO Referring Unavailabl e JOLLIFF, TEAGAN RHONDA Primary Care Unavailable Rafael, Teagan Rhonda Primary Care Provider Dr. Teagan Hall Primary Care Provider Dr. Jimenez Shane Attending Provider Dr. Teagan Hall Referring [...] Provider MARCUS MELLO Attending Unavailabl e JOLLIFF, TAEGAN RHONDA Primary Care Unavailable MARCUS MELLO Referring Unavailabl e JOLLIFF, TEAGAN RHONDA Primary Care Unavailable AMRCUS MELLO Attending Unavailabl e MARCUS MELLO Referring [...] Teagan Hall Referring Provider [phone] Mtateo Jonas Attending Provider Dr. Henrry Cano Emergency [...] Provider Dr. Aden Marquez Attending Provider Roof UNDERWATER TRAPPER, UNDERWATER TRAPPER-C Sharad Mchugh Attending Provider Dr. Teagan Hall [...] Provider Dr. Aden Marquez Attending Provider Bry UNDERWATER TRAPPER, MARLENE-Stephany Mchugh Attending Provider WISAM Magallon Referring [...] Provider Dr. Aden Marquez Attending Provider Bry UNDERWATER TRAPPER, WAYNE Mchugh Attending Provider WISAM Magallon Referring [...] Dr. Aden Marquez Attending Provider Roof MARLENE, UNDERWATER TRAPPER-Stephany Mchugh Attending Provider WISAM Magallon Attending Provider WISAM Magallon Referring Provider WAYNE Juarez Attending Provider Dr. Seth Garcia Emergency Provider Dr. Matteo Anderson Provider Dr. Matteo Anderson Attending Provider Dr. Matteo Anderson Other Provider Dr. Jesi Dunham Other Provider Dr. Michael Sinclair Attending Provider Dr. Michael Sinclair Other Provider Iza Pagan Attending Provider Unavailable Trinity UNDERWATER TRAPPER, UNDERWATER TRAPPER-C Mariely Attending Provider Dr. Jesi Dunham Attending Provider Trinity UNDERWATER TRAPPER, UNDERWATER TRAPPER-C Mariely Referring Provider Trinity UNDERWATER TRAPPER, UNDERWATER TRAPPER-C Mariely Other Provider Dr. Ash Loving Attending [...] Provider Dr. Elias Arevalo Referring Provider Dr. Teagan Hall Referring Provider WISAM Magallon Attending Provider Trinity UNDERWATER TRAPPER, UNDERWATER TRAPPER-C Mariely Attending Provider Dr. Jesi Dunham Attending Provider Trinity UNDERWATER TRAPPER, UNDERWATER TRAPPER-C Mariely Referring Provider Trinity UNDERWATER TRAPPER, UNDERWATER TRAPPER-C Mariely Other Provider Dr. Ash Loving Attending [...] Fior LOPES, Dr. Almaguer Referring Provider Roof UNDERWATER TRAPPER-C, Sharad H Other Provider Holli Magallon Referring Provider Kenneth LOPES, Dr. Ny Emergency Provider Kenneth LOPES, Dr. Ny Attending Provider Roof UNDERWATER TRAPPER-C, Sharad H Attending Provider Roof UNDERWATER TRAPPER-C, Sharad H Referring Provider Rafael LOPES, Dr. Teagan Franks Primary Care Provider Irnia LOPES, Dr. Griffin Attending Provider Irina LOPES, Dr. Griffin Referring Provider Holli Magallon Attending Provider Rafael LOPES, Dr. Teagan Franks Referring Provider Rafael LOPES, Dr. Teagan Franks Primary Care Provider Ponce LOPES, Dr. Stern Attending Provider Ponce LOPES, Dr. Stern Referring Provider Rafael LOPES, Dr. Teagan Franks Primary Care Provider Fior LOPES, Dr. Almaguer Attending Provider Fior LOPES, Dr. Almaguer Referring Provider Dr. Matteo Jonas MD Attending Provider Pritesh LOPES, Dr. Felipe Referring Provider Ponce LOPES, Dr. Stern Other Provider Rafael LOPES, Dr. Teagan Franks Primary Care Provider Irina LOPES, Dr. Griffin Attending Provider Irina LOPES, Dr. Griffin Referring Provider Nikos Lake MD Emergency Provider Daylin LOPES, Dr. Mera Primary Care Provider Hillary TAVARES, Dr. Estrada Admit Provider Hillary TAAVRES, Dr. Estrada Attending Provider Hillary TAVARES, Dr. Estrada Other Provider Hadley LOPES, Dr. Gresham Attending Provider Hadley LOPES, Dr. Gresham Other Provider Amanda LOPES, Dr. Hou Other Provider Adriana LOPES, Dr. Rodriguez Attending Provider Daylin LOPES, Dr. Mera Referring Provider Iza Pagan Attending Provider Unavailable Ishmael LOPES, Dr. Canseco Attending Provider Unavailyann Quiñones MD, Dr. Canseco Other Provider Unavailable Ronn LOPES, darin Attending Provider Hadley LOPES, Dr. Gresham Referring Provider Amanda LOPES, Dr. Hou Other Provider Ishmael LOPES, Dr. Canseco Attending Provider Unavaila patricia JOEL, Shaila Attending Provider Rafael LOPES, Dr. Teagan Franks Primary Care Provider Rafael LOPES, Dr. Teagan Franks Referring Provider Irina LOPES, Dr. Griffin Attending Provider Dr. Leena Serra MD Attending Provider Ponce LOPES, Dr. Stern Referring Provider Pritesh LOPES, Dr. Felipe Attending Provider Pritesh LOPES, Dr. Felipe Referring Provider Ponce LOPES, Dr. Stern Other Provider Irina LOPES, Dr. Griffin Referring Provider Jaya LOPES, Nikos Emergency Provider Daylin LOPES, Dr. Mera Primary Care Provider Hillary TAVARES, Dr. Estrada Admit Provider Hillary TAVARES, Dr. Estrada Attending Provider Hillray TAVARES, Dr. Estrada Other Provider Hadley LOPES, Dr. Gresham Attending Provider Hadley LOPES, Dr. Gresham Other Provider Ronn [facility] Provider Hadley LOPES, Dr. Gresham Referring Provider Amanda LOPES, Dr. Hou Other Provider Ishmael LOPES, Dr. Canseco Attending Provider Unavaila patricia rWight MD, Dr. Rodriguez Attending Provider Daylin LOPES, Dr. Mera Referring Provider Iza Pagan Attending Provider Unavailable Ishmael LOPES, Dr. Canseco Other Provider Unavailable Shaila Valladares Attending Provider Anirudh LOPES, Macie Primary Care Provider Holli Magallon Attending Provider Miedel, [place] Referring Unavailable Miedel, Tripp Attending Unavailable Jolliff, Teagan S Primary Care Unavailable Bry UNDERWATER TRAPPER, Sharad Mchugh Consulting Unavailable Anirudh, Chalon Primary Care Unavailable Vellanki, Leena Attending Unavailable Vellanki, Leena Referring Unavailable Holli Magallon Referring Unavail able Jolliff, Teagan S Primary Care Unavailable Holli Magallon Attending Unavail able Anirudh, Macie Primary Care Unavailable Holli Magallon Attending Unavail able Linda Mao Referring Unavailable Jolliff, Teagan S Primary Care Unavailable Miedel, Tripp Consulting Unavailable Vellanki, Leena Attending Unavailable Vellanki, Leena Referring Unavailable Holli Magallon Referring Unavail able Jolliff, Teagan S Primary Care Unavailable Vellanki, Leena Consulting Unavailable Holli Magallon Attending Unavail able Anirudh, Chalon Primary Care Unavailable Bernardo Yusuf Attending Unavailabl e Sean Thornton Consulting Unavailable Hillary Sean Admitting Unavailable Ajith Quiñones Attending Unavailable [facility] Unavailable Mostafa, Savi Consulting Unavailable Butcher, Marga Consulting Unavailable Jolliff, Teagan S Primary Care Unavailable Anant Cooper Attending Unavailable Jolliff, Teagan S Primary Care Unavailable Jolliff, Teagan S Referring Unavailable PrahMatteo Attending Unavailable Jolliff, Teagan S Primary Care Unavailable Irina, Elias Referring Unavailable Irina, Lakeside Attending Unavailable Jolliff, Teagan S Primary Care Unavailable Jolliff, Teagan S Referring Unavailable Irina, [place]ide Attending Unavailable Irina, [place] Attending Unavailable Hillary, Sean Admitting Unavailable Hillary, Sean Consulting Unavailable Ran[facility] Unavailable Mostafa, Savi Consulting Unavailable Hadley, Marga Consulting Unavailable Ajith Quiñones Consulting Unavailable Ajith Quiñones Attending Unavailable Jolliff, Teagan S Primary Care Unavailable Roof UNDERWATER TRAPPER, Sharad Mchugh Attending Unavailable Roof UNDERWATER TRAPPER, Sharad H Referring Unavailable Jolliff, Teagan S Primary Care Unavailable Leena Serra Attending Unavailable Bibianalanki, Leena Referring Unavailable Miirinael Tripp Referring Unavailable MiedelTripp Attending Unavailable Jolliff, Teagan S Primary Care Unavailable MostSean mosley Attending Unavailable Jolliff, Teagan S Primary Care Unavailable Irina, Lakeside Attending Unavailable Irina, Elias Referring Unavailable Irina, Elias Attending Unavailable [facility] Unavailable Jolliff, Teagan S Primary Care Unavailable Matteo Jonas Attending Unavailable Bibianalanki, Leena Consulting Unavailable Matteo Jonas Referring Unavailable Holli Magallon Attending Unavail able Jolliff, Teagan S Primary Care Unavailable Holli Magallon Referring Unavail able Anirudh, Chalon Primary Care Unavailable Austin Marie Attending Unavailable Mostmelany, Sean Consulting Unavailable Hillary, Sean Admitting Unavailable Hillary Sean Attending Unavailable Ranmanila[facility] Unavailable Marga Butcher Attending Unavailable Butcher, Marga Consulting Unavailable Iza Pagan Attending Unavailable [facility] Primary Care Un[facility] Referring Unavailable Jolliff, Teagan S Referring Unavailable Jolliff, Teagan S Primary Care Unavailable Holli Magallon Attending Unavail able Jolliff, Teagan S Primary Care Unavailable Irina, Lakes[place] Attending Unavailable Irina, Elias Referring Unavailable Jolliff, Teagan S Referring Unavailable Jolliff, Teagan S Primary Care Unavailable Holli Magallon Attending Unavail able Jolliff, Teagan S Primary Care Unavailable Irina, Elias Attending Unavailable Irina, Elias Referring Unavailable Irina, [place] Attending Unavailable Darenmanila, [facility] Unavailable Shaila Alexander Attending Unavailable RanLinda powell Referring Unavailable Ranmanila, [facility] Primary [facility] Unavailable Marga Butcher Attending Unavailable Michael Wright Attending Unavailable Darenmanila, [facility] Primary [facility] Unavailable Marga Butcher Referring Unavailable Daylin, [facility] Primary [facility] Unavailable Marga Butcher Referring Unavailable Joselyn Brody Attending Unavailable Allergies Allergy Classification Reported Allergen(s) Allergy Type Date of Onset Reaction(s) Facility (20 sources) Ticagrelor; Translations: [TICAGRELOR] Drug Allergy 1 Other: See Comments [facility] (8 sources) Ticagrelor Allergy to substance 1 Other [facility] (1 source) Ticagrelor Drug Allergy 5 [facility] (1 source) Fpoazxd-Vhz-Azm Reductase Inhibitor Drug allergy (disorder) 5 [facility] Medications Current Medications [...] mcg/actuation mist Discontinued 2 NMA INHALATION DAILY December 09, 2020 12:00am December 24, 2021 1:38pm Start: 12-09-2020 End: 12-24-2021 Start: 12-09-2020 End: 12-24-2021 Tiotropium-Olodaterol (Stiol to Respimat) 2.5-2.5 mcg/actuation mist Discontinued 2 INH INHALATION DAILY 4 December 08, 2020 11:00pm December 24, 2021 12:38pm Start: 12-09-2020 End: 12-24-2021 Tiotropium-Olodaterol (Stiol to Respimat) 2.5-2.5 mcg/actuation mist Discontinued 2 INH INHALATION DAILY December 09, 2020 12:00am December 24, 2021 1:38pm Start: 12-09-2020 Tiotropium-Olo daterol (Stiolto Respimat) 2.5-2.5 mcg/actuation mist Active 2 INH INHALATION DAILY December 09, 2020 12:00am sacubitril / valsartan (20 sources) Angiotensin 2 Receptor Kemal Start: 09-12-2024 Sacubitril-Valsartan (Entresto) 24-26 mg tablet Active 1 {tbl} PO TWICE A DAY 180 September 12, 2024 11:19am heart Start: 01-21-2024 [...] TABLET PO EVERY 6 HOURS NEEDED 24 3 October 28, 2018 November 01, 2018 12:07am [...] on above: Take 1 tablet by joaquín every 4 hours as needed for pain. [...] tablet Discontinued 200 mg PO DAILY 90 February 04, 2023 12:25pm February 25, 2023 [...] Discontinued 50 mg PO TWICE A DAY 30 0 March 22, 2023 1:50pm May 04, 2023 [...] scontinued 25 MG PO TWICE A DAY September 25, 2020 4:21pm December 24, 2020 [...] tablet Discontinued 1 NMA PO DAILY 0 0 February 07, 2013 12:00am April 22, 2020 11:01am vitamin Start: 02-07-2013 End: 04-22-2020 Multivitamin 1 EACH tablet D iscontinued 1 NMA PO DAILY 0 February 07, [...] on above: Take by mouth twice daily. [place]-3 Fatty Acids-Vitamin E 1,000 mg cap (10 sources) [place]-3 Fatty Acids-Vitamin E 1,000 mg cap Take 1 capsule by mouth. 0 Active Comment on above: Take 1 capsule by [facility]. omeprazole 40 mg delayed release oral capsule [...] 2 WEEKS, THEN TWICE WEEKLY NEEDED Vitamin Z61-Lcgzobk B1 5.5-12.5 mg-mcg/5 mL Liqd (10 sources) take 5.5-12.5 mg by mouth once daily Vitamin M41-Vbntxeo B1 5.5-12.5 mg-mcg/5 mL Liqd Take 1 tablet by mouth once daily. 0 Active Vitamin F83-Baoc min B1 5.5-12.5 mg-mcg/5 mL Liqd Take by mouth. 0 Active Comment on above: Take by mouth. Take 1 tablet by joaquín once daily. vitamin b6 50 mg oral [...] history of malignant neoplasm of breast] Onset: 5 Episodic Comment on above: No evidence of [...] disease; Translations: [Chronic obstructive pulmonary disease, unspecified] Onset: 5 12-09-2020 Chronic Chronic ulcer of skin (20 sources) Chronic ulcer of lower extremity; Translations: [Non-pressure chronic ulcer of unspecified part of left lower leg with fat layer exposed] 05-10-2020 Chronic Complication of device; implant or graft (20 sources) Bone fixation device infection; Translations: [Infection and inflammatory reaction due to other internal orthopedic prosthetic devices, implants and grafts, initial encounter] Onset: Episodic Complications of surgical procedures or medical care (10 sources) Postmastectomy lymphedema syndrome; 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 Conditions associated with dizziness or vertigo (20 sources) Dizziness; Translations: [Dizziness and giddiness] Onset: 5 11-30-2024 Episodic Conduction disorders (20 sources) Complete atrioventricular block; Translations: [Atrioventricular block, complete] Onset: 5 02-23-2023 Chronic Comment on above: DPPM implant 3 @ [facility] Congestive heart failure; nonhypertensive (17 sources) Congestive heart failure; Translations: [Heart failure, unspecified] Onset: 5 12-03-2024 Chronic Coronary atherosclerosis and other heart disease (20 sources) Coronary atherosclerosis; Translations: [Atherosclerotic heart disease of [place] coronary artery without angina pectoris] Onset: 3 [...] fatigue (20 sources) Fatigue; Translations: [Other fatigue] Onset: 5 03-29-2023 Episodic Nonspecific chest pain (20 sources) Chest pain; Translations: [Chest pain, unspecified] Episodic Other acquired deformities (4 sources) Cervical kyphosis; Translations: [Unspecified kyphosis, cervical region] 12-19-2024 Chronic Other acquired deformities (4 sources) Spondylolisthesis; Translations: [Spondylolisthesis, cervical region] 12-19-2024 Episodic Other aftercare (20 sources) Long-term current use of anticoagulant; Translations: [intermediate teacher (current) use of anticoagulants] 01-18-2023 Episodic Other aftercare (18 sources) Long-term current use of diuretic; Translations: [Encounter for therapeutic drug level monitoring] 07-03-2024 Episodic Other aftercare (1 source) Other keno terminal operator (current) drug therapy; Translations: [Other keno terminal operator (current) drug therapy] Onset: Episodic Other bone disease and musculoskeletal deformities [...] Test Name Value Interpretation Reference Range Facility Abdomen Limitedon 01-01-2025 Abdomen Limited Normal [facility] CBC W/Diff, Automatedon Absolute Lymph 1.06 X10 3/uL Normal 0.83-4.51 [facility] Comment on above: Performed By: #### L 100.0100, L500.4050, L300.3900 ####[facility] [address] [place], [address] Absolute Neut 8.5 X10 3/uL High 2.0-7.7 [facility] Comment on above: Performed By: #### L 100.0100, L500.4050, L300.3900 ####[facility] [address] [place], [address] Basophils/100 WBC (Bld) 0.1 % Normal 0-1 [facility] Comment on above: Performed By: #### L 100.0100, L500.4050, L300.3900 ####[facility] [address] [place], [address] Eosinophils/100 WBC (Bld) 0.2 % Normal 0-5 [facility] Comment on above: Performed By: #### L 100.0100, L500.4050, L300.3900 ####[facility] [address] [place], [address] Erythrocyte distribution width (RBC) [Ratio] 15.8 % High 11.6-14.6 [facility] Comment on above: Performed By: #### L 100.0100, L500.4050, L300.3900 ####[facility] [address] [place], [address] Hematocrit (Bld) [Volume fraction] 48.5 % High 37-47 [facility] Comment on above: Performed By: #### L 100.0100, L500.4050, L300.3900 ####[facility] [address] [place], [address] Hemoglobin (Bld) [Mass/Vol] 16.6 g/dL High 12.0-15.0 [facility] Comment on above: Performed By: #### L 100.0100, L500.4050, L300.3900 ####[facility] [address] [place], [address] IG% 0.500 Normal 0.0-0.9 [facility] Comment on above: Result Comment: IG% - Immature Granulocytes (promyelocytes, myelocytes andmetamyelocytes) > 1% indicates that a LEFT SHIFT is Present. Performed By: #### L 100.0100, L500.4050, L300.3900 ####[facility] [address] [place], [address] Lymphocytes/100 WBC (Bld) 9.9 % Low 19-41 [facility] Comment on above: Performed By: #### L 100.0100, L500.4050, L300.3900 ####[facility] [address] [place], [address] MCH (RBC) [Entitic mass] 34.2 pg High 27.0-32.0 [facility] Comment on above: Performed By: #### L 100.0100, L500.4050, L300.3900 ####[facility] [address] [place], [address] MCHC (RBC) [Mass/Vol] 34.2 g/dL Normal 32-36 [facility] Comment on above: Performed By: #### L 100.0100, L500.4050, L300.3900 ####[facility] [address] [place], [address] MCV (RBC) [Entitic vol] 99.8 fL High 81-99 [facility] Comment on above: Performed By: #### L 100.0100, L500.4050, L300.3900 ####[facility] [address] [place], [address] Monocytes/100 WBC (Bld) 9.7 % Normal 0-10 [facility] Comment on above: Performed By: #### L 100.0100, L500.4050, L300.3900 ####[facility] [address] [place], [address] Neutrophils/100 WBC (Bld) 79.6 % High 47-70 [facility] Comment on above: Performed By: #### L 100.0100, L500.4050, L300.3900 ####[facility] [address] [place], [address] Nucleated RBC (Bld) [#/Vol] 0 10*3/uL Normal 0-5 [facility] Comment on above: Performed By: #### L 100.0100, L500.4050, L300.3900 ####[facility] [address] [place], [address] Platelet mean volume (Bld) [Entitic vol] 12.7 fL High 6.2-12.0 [facility] Comment on above: Performed By: #### L 100.0100, L500.4050, L300.3900 ####[facility] [address] [place], [address] Platelets (Bld) [#/Vol] 64 10*3/uL Low 150-450 [facility] Comment on above: Performed By: #### L 100.0100, L500.4050, L300.3900 ####[facility] [address] [place], [address] RBC (Bld) [#/Vol] 4.86 10*6/uL Normal 4.2-5.4 [facility] Comment on above: Performed By: #### L 100.0100, L500.4050, L300.3900 ####[facility] [address] [place], [address] RDW SD 56.5 fl High 35.1-43.9 [facility] Comment on above: Performed By: #### L 100.0100, L500.4050, L300.3900 ####[facility] [address] [place], [address] WBC (Bld) [#/Vol] 10.7 10*3/uL Normal 4.4-11.0 [facility] Comment on above: Performed By: #### L 100.0100, L500.4050, L300.3900 ####[facility] [address] [place], [address] CPK Total, Creatine Kinaseon 01-01-2025 CPK TOTAL 122 U/L Normal 24-195 [facility] Comment on above: Performed By: #### L 501.3620 ####[facility] [address] [place], [address] Chest PA and Lateralon 01-01 Chest PA and Lateral Normal [facility] Comprehensive Metabolic Prof ilon 01-01-2025 Albumin [Mass/Vol] 4.1 g/dL Normal 3.4-4.8 [facility] Comment on above: Performed By: #### L 501.9520, L501.4021, L503.7505, L501.5200, L500.4050, L506.0400 ####[facility] [address] [place], [address] Albumin/Globulin [Mass ratio] 1.9 {ratio} Normal 0.9-2.4 [facility] Comment on above: Performed By: #### L 501.9520, L501.4021, L503.7505, L501.5200, L500.4050, L506.0400 ####[facility] [address] [place], [address] ALK PHOS 82 U/L Normal 35-104 [facility] Comment on above: Performed By: #### L 501.9520, L501.4021, L503.7505, L501.5200, L500.4050, L506.0400 ####[facility] [address] [place], [address] ALT [Catalytic activity/Vol] 278 U/L High <=34 [facility] Comment on above: Performed By: #### L 501.9520, L501.4021, L503.7505, L501.5200, L500.4050, L506.0400 ####[facility] [address] [place], [address] AST [Catalytic activity/Vol] 245 U/L High <=31 [facility] Comment on above: Result Comment: Hemo lysis present, Results??could be affected.?? Performed By: #### L 501.9520, L501.4021, L503.7505, L501.5200, L500.4050, L506.0400 ####[facility] [address] [place], [address] Bilirubin [Mass/Vol] 2.39 mg/dL High 0.00-1.30 [facility] Comment on above: Performed By: #### L 501.9520, L501.4021, L503.7505, L501.5200, L500.4050, L506.0400 ####[facility] [address] [place], [address] BUN/CRE 34.5 RATIO High 10-20 [facility] Comment on above: Performed By: #### L 501.9520, L501.4021, L503.7505, L501.5200, L500.4050, L506.0400 ####[facility] [address] [place], [address] Calcium [Mass/Vol] 9.0 mg/dL Normal 7.6-11.0 [facility] Comment on above: Performed By: #### L 501.9520, L501.4021, L503.7505, L501.5200, L500.4050, L506.0400 ####[facility] [address] [place], [address] Chloride [Moles/Vol] 101 mmol/L Normal 98-108 [facility] Comment on above: Performed By: #### L 501.9520, L501.4021, L503.7505, L501.5200, L500.4050, L506.0400 ####[facility] [address] [place], [address] CO2 [Moles/Vol] 13.9 mmol/L Low 21.0-32.0 [facility] Comment on above: Performed By: #### L 501.9520, L501.4021, L503.7505, L501.5200, L500.4050, L506.0400 ####[facility] [address] [place], [address] Creatinine [Mass/Vol] 2.15 mg/dL High 0.70-1.20 [facility] Comment on above: Performed By: #### L 501.9520, L501.4021, L503.7505, L501.5200, L500.4050, L506.0400 ####[facility] [address] [place], [address] ECRCL 16.28 ml/min Low 50-250 [facility] Comment on above: Performed By: #### L 501.9520, L501.4021, L503.7505, L501.5200, L500.4050, L506.0400 ####[facility] [address] [place], [address] GAP 16 High 5-15 [facility] Comment on above: Performed By: #### L 501.9520, L501.4021, L503.7505, L501.5200, L500.4050, L506.0400 ####[facility] [address] [place], [address] GFR/1.73 sq M.predicted among non-blacks MDRD (S/P/Bld) [Vol rate/Area] 22 mL/min/{1.73_m2} Low >60 [facility] Comment on above: Result Comment: mL/m in/1.73m2 CKD-EPI Creatinine Equation (2020) Performed By: #### L 501.9520, L501.4021, L503.7505, L501.5200, L500.4050, L506.0400 ####[facility] [address] [place], [address] Globulin (S) [Mass/Vol] 2.1 g/dL Low 2.2-4.2 [facility] Comment on above: Performed By: #### L 501.9520, L501.4021, L503.7505, L501.5200, L500.4050, L506.0400 ####[facility] [address] [place], [address] Glucose [Mass/Vol] 81 mg/dL Normal 70-99 [facility] Comment on above: Performed By: #### L 501.9520, L501.4021, L503.7505, L501.5200, L500.4050, L506.0400 ####[facility] [address] [place], [address] Potassium [Moles/Vol] 5.0 mmol/L Normal 3.3-5.1 [facility] Comment on above: Result Comment: Hemo lysis present, Results??could be affected.?? Performed By: #### L 501.9520, L501.4021, L503.7505, L501.5200, L500.4050, L506.0400 ####[facility] [address] [place], [address] Sodium [Moles/Vol] 132 mmol/L Low 133-145 [facility] Comment on above: Performed By: #### L 501.9520, L501.4021, L503.7505, L501.5200, L500.4050, L506.0400 ####[facility] [address] [place], [address] T PROT 6.3 g/dL Normal 5.9-8.4 [facility] Comment on above: Performed By: #### L 501.9520, L501.4021, L503.7505, L501.5200, L500.4050, L506.0400 ####[facility] [address] [place], [address] Urea nitrogen [Mass/Vol] 74 mg/dL High 4-19 [facility] Comment on above: Performed By: #### L 501.9520, L501.4021, L503.7505, L501.5200, L500.4050, L506.0400 ####[facility] [address] [place], [address] ALB Normal 3.4-4.8 [facility] Comment on above: Result Comment: This specimen has been REJECTED due to Laboratory criteria:Hemolyzed.ED CAMPUS AIDE has been notified of need of recollection.01/01/25 1026 Cassandra Maciel Performed By: #### L 100.0100, L500.4050, L300.3900 ####[facility] [address] [place], [address] ALK PHOS Normal 35-104 [facility] Comment on above: Result Comment: This specimen has been REJECTED due to Laboratory criteria:Hemolyzed.ED CAMPUS AIDE has been notified of need of recollection.01/01/25 1026 Cassandra Maciel Performed By: #### L 100.0100, L500.4050, L300.3900 ####[facility] [address] [place], [address] ALT Normal <=34 [facility] Comment on above: Result Comment: This specimen has been REJECTED due to Laboratory criteria:Hemolyzed.ED CAMPUS AIDE has been notified of need of recollection.01/01/25 1026 Cassandra L White Performed By: #### L 100.0100, L500.4050, L300.3900 ####[facility] [address] [place], [address] AST Normal <=31 [facility] Comment on above: Result Comment: This specimen has been REJECTED due to Laboratory criteria:Hemolyzed.ED CAMPUS AIDE has been notified of need of recollection.01/01/25 1026 Cassandra L White Performed By: #### L 100.0100, L500.4050, L300.3900 ####[facility] [address] [place], [address] BUN Normal 4-19 [facility] Comment on above: Result Comment: This specimen has been REJECTED due to Laboratory criteria:Hemolyzed.ED CAMPUS AIDE has been notified of need of recollection.01/01/25 1026 Cassandra L White Performed By: #### L 100.0100, L500.4050, L300.3900 ####[facility] [address] [place], [address] BUN/CRE Normal 10-20 [facility] Comment on above: Result Comment: This specimen has been REJECTED due to Laboratory criteria:Hemolyzed.ED CAMPUS AIDE has been notified of need of recollection.01/01/25 1026 Cassandra L White Performed By: #### L 100.0100, L500.4050, L300.3900 ####[facility] [address] [place], [address] Calcium Normal 7.6-11.0 [facility] Comment on above: Result Comment: This specimen has been REJECTED due to Laboratory criteria:Hemolyzed.ED CAMPUS AIDE has been notified of need of recollection.01/01/25 1026 Cassandra L White Performed By: #### L 100.0100, L500.4050, L300.3900 ####[facility] [address] [place], [address] CL Normal 98-108 [facility] Comment on above: Result Comment: This specimen has been REJECTED due to Laboratory criteria:Hemolyzed.ED CAMPUS AIDE has been notified of need of recollection.01/01/25 1026 Cassandra Garibay White Performed By: #### L 100.0100, L500.4050, L300.3900 ####[facility] [address] [place], [address] CO2 Normal 21.0-32.0 [facility] Comment on above: Result Comment: This specimen has been REJECTED due to Laboratory criteria:Hemolyzed.ED CAMPUS AIDE has been notified of need of recollection.01/01/25 1026 Cassandra L White Performed By: #### L 100.0100, L500.4050, L300.3900 ####[facility] [address] [place], [address] CREAT,SERUM Normal 0.70-1.20 [facility] Comment on above: Result Comment: This specimen has been REJECTED due to Laboratory criteria:Hemolyzed.ED CAMPUS AIDE has been notified of need of recollection.01/01/25 1026 Cassandra Garibay White Performed By: #### L 100.0100, L500.4050, L300.3900 ####[facility] [address] [place], [address] eGFR Normal >60 [facility] Comment on above: Result Comment: This specimen has been REJECTED due to Laboratory criteria:Hemolyzed.ED CAMPUS AIDE has been notified of need of recollection.01/01/25 1026 Cassandra L White Performed By: #### L 100.0100, L500.4050, L300.3900 ####[facility] [address] [place], [address] GAP Normal 5-15 [facility] Comment on above: Result Comment: This specimen has been REJECTED due to Laboratory criteria:Hemolyzed.ED CAMPUS AIDE has been notified of need of recollection.01/01/25 1026 Cassandra Garibay White Performed By: #### L 100.0100, L500.4050, L300.3900 ####[facility] [address] [place], [address] GLU Normal 70-99 [facility] Comment on above: Result Comment: This specimen has been REJECTED due to Laboratory criteria:Hemolyzed.ED CAMPUS AIDE has been notified of need of recollection.01/01/25 1026 Cassandra L White Performed By: #### L 100.0100, L500.4050, L300.3900 ####[facility] [address] [place], [address] Potassium Normal 3.3-5.1 [facility] Comment on above: Result Comment: This specimen has been REJECTED due to Laboratory criteria:Hemolyzed.ED CAMPUS AIDE has been notified of need of recollection.01/01/25 1026 Cassandra L White Performed By: #### L 100.0100, L500.4050, L300.3900 ####[facility] [address] [place], [address] T BILI Normal 0.00-1.30 [facility] Comment on above: Result Comment: This specimen has been REJECTED due to Laboratory criteria:Hemolyzed.ED CAMPUS AIDE has been notified of need of recollection.01/01/25 1026 Cassandra L White Performed By: #### L 100.0100, L500.4050, L300.3900 ####[facility] [address] [place], [address] T PROT Normal 5.9-8.4 [facility] Comment on above: Result Comment: This specimen has been REJECTED due to Laboratory criteria:Hemolyzed.ED CAMPUS AIDE has been notified of need of recollection.01/01/25 1026 Cassandra L White Performed By: #### L 100.0100, L500.4050, L300.3900 ####[facility] [address] [place], [address] Comprehensive Metabolic Profil Normal 133-145 [facility] Comment on above: Result Comment: This specimen has been REJECTED due to Laboratory criteria:Hemolyzed.ED CAMPUS AIDE has been notified of need of recollection.01/01/25 Carmen6 Cassandra Garibay Raheem Performed By: #### L 100.0100, L500.4050, L300.3900 ####[facility] [address] [place], [address] Consultation - Cardiologyon 01-01-2025 Consultation - Cardiology Normal [facility] Emergency Department Summary on 01-01-2025 Emergency Department Summary Normal [facility] L501.4021on 01-01-2025 Trop T High Sen 49 ng/L High <=14 [facility] Comment on above: Performed By: #### L 501.9520, L501.4021, L503.7505, L501.5200, L500.4050, L506.0400 ####[facility] [address] [place], [address] Lipaseon 01-01-2025 Lipase [Catalytic activity/Vol] 44 U/L Normal 13-75 [facility] Comment on above: Result Comment: Jonathan madrigal note:LIPASE revised reference range effective 22.New Lipase methodology. Expected to produce lower valuesthan the previous assay method.NEW Reference Range: 13 - 75 U/L Performed By: #### L 501.2450 ####[facility] [address] [place], [address] Magnesiumon 01-01-2025 Magnesium [Mass/Vol] 2.5 mg/dL High 1.5-2.2 [facility] Comment on above: Performed By: #### L 501.9520, L501.4021, L503.7505, L501.5200, L500.4050, L506.0400 ####[facility] [address] [place], [address] Partial Thromboplast Timeon 09-01-2025 aPTT Coag (Bld) [Time] 30.4 s Normal 24.1-36.2 [facility] Comment on above: Order Comment: REDRA W X2. PREVIOUS SPECIMEN REJECTED DUE TOQNS. 01/01/25 1028 Radha Dowell.LAB TO DRAW Performed By: #### L 300.3900, L300.4310 ####[facility] [address] [place], [address] Pro- Brain NATRIURETIC PEPTI Cristopher 01-01-2025 Natriuretic peptide B (Bld) [Mass/Vol] 23578 pg/mL High <=1800 [facility] Comment on above: Result Comment: Hear t Failure Unlikely: < 300 pg/mLHeart Failure Likely< 50 Years: > 450 pg/mL50-75 Years: > 900 pg/mL>75 Years: > 1800 pg/mL Performed By: #### L 501.9520, L501.4021, L503.7505, L501.5200, L500.4050, L506.0400 ####[facility] [address] [place], [address] Prothrombin Time w/INRon INR Coag (PPP) [Relative time] 3.3 {INR} Normal [facility] Comment on above: Order Comment: REDRA W X2. PREVIOUS SPECIMEN REJECTED DUE TOQNS. 01/01/25 1028 Radha Dowell.LAB TO DRAW Performed By: #### L 300.3900, L300.4310 ####[facility] [address] [place], [address] PT Coag (PPP) [Time] 34.4 s High 11.7-14.9 [facility] Comment on above: Order Comment: REDRA W X2. PREVIOUS SPECIMEN REJECTED DUE TOQNS. 01/01/25 1028 Radha Dowell.LAB TO DRAW Performed By: #### L 300.3900, L300.4310 ####[facility] [address] [place], [address] INR Normal [facility] Comment on above: Order Comment: REDRA W. PREVIOUS SPECIMEN REJECTED DUE TOHEMOLYSIS. 01/01/25 0955 Radha Dowell. Result Comment: This specimen has been REJECTED due to Laboratory criteria:Quanity Not Sufficient.TONY has been notified of need of recollection.01/01/25 1027 Radha LozanoLAB TO DRAW Performed By: #### L 300.3900 ####[facility] [address] [place], [address] PROTIME Normal 11.7-14.9 [facility] Comment on above: Order Comment: REDRA W. PREVIOUS SPECIMEN REJECTED DUE TOHEMOLYSIS. 01/01/25 0955 Radha Dowell. Result Comment: This specimen has been REJECTED due to Laboratory criteria:Quanity Not Sufficient.TONY has been notified of need of recollection.01/01/25 1027 Radha LozanoLAB TO DRAW Performed By: #### L 300.3900 ####[facility] [address] [place], [address] INR Normal [facility] Comment on above: Result Comment: This specimen has been REJECTED due to Laboratory criteria:Hemolyzed.TONY has been notified of need of recollection.01/01/25 0954 Radha Dowell Performed By: #### L 100.0100, L500.4050, L300.3900 ####[facility] [address] [place], [address] PROTIME Normal 11.7-14.9 [facility] Comment on above: Result Comment: This specimen has been REJECTED due to Laboratory criteria:Hemolyzed.TONY has been notified of need of recollection.01/01/25 0954 Radha Dowell Performed By: #### L 100.0100, L500.4050, L300.3900 ####[facility] [address] [place], [address] T4 Free Directon 01-01-2025 T4 FREE DIRECT 2.50 ng/dL High 0.76-1.46 [facility] Comment on above: Order Comment: N Performed By: #### L 501.9520, L501.4021, L503.7505, L501.5200, L500.4050, L506.0400 ####[facility] [address] [place], [address] Thyroid Stim Hormone (TSH)on 01-01-2025 TSH 0.987 uIU/mL Normal 0.300-4.20 0 [facility] Comment on above: Performed By: #### L 501.9520, L501.4021, L503.7505, L501.5200, L500.4050, L506.0400 ####[facility] [address] [place], [address] Troponin T HS 2 HRon 025 Trop T High Sen 49 ng/L High <=14 [facility] Comment on above: Order Comment: HARMONY Julian PREVIOUS SPECIMEN REJECTED DUE TOHEMOLYSIS. 01/01/25 1345 Cassandra Maciel. Performed By: #### L 499.0042 ####[facility] [address] [place], [address] Trop T High Sen Normal <=14 [facility] Comment on above: Result Comment: This specimen has been REJECTED due to Laboratory criteria:Hemolyzed.TONY (ED) has been notified of need of recollection.01/01/25 1344 Cassandra Maciel Performed By: #### L 499.0042 ####[facility] [address] [place], [address] Urinalysis, Completeon 01-01 BACTERIA RARE Normal None Seen [facility] Comment on above: Order Comment: DARRELL CTOR TO SPECIFY Performed By: #### L 400.0001 ####[facility] [address] [place], [address] CAST,HYALINE 0-5 SEEN Normal 0-5 [facility] Comment on above: Order Comment: DARRELL CTOR TO SPECIFY Performed By: #### L 400.0001 ####[facility] [address] [place], [address] EPI,SQUAMOUS 0-5 SEEN Normal 5-10 [facility] Comment on above: Order Comment: COLLE CTOR TO SPECIFY Performed By: #### L 400.0001 ####[facility] [address] [place], [address] Mucus Ql (Urine sed) 1+ /hpf Normal [facility] Comment on above: Order Comment: COLLE CTOR TO SPECIFY Performed By: #### L 400.0001 ####[facility] [address] [place], [address] RBC 0-5 SEEN Normal 0-5 [facility] Comment on above: Order Comment: COLLE CTOR TO SPECIFY Performed By: #### L 400.0001 ####[facility] [address] [place], [address] WBC 0-5 SEEN Normal 0-5 [facility] Comment on above: Order Comment: DARRELL CTOR TO SPECIFY Performed By: #### L 400.0001 ####[facility] [address] [place], [address] Cardiology Visit Reporton Cardiology Visit Report Normal [facility] Absolute lymphocyte countOrd ered By: Leena Serra on 12-22-2024 Lymphocytes Auto (Unsp spec) [#/Vol] 0.80 10*3/uL Low 0.83-4.51 [facility] Anion gap in Serum or Plasma Ordered By: Leena Serra on 12-22-2024 Anion gap [Moles/Vol] 16 mmol/L High 5-15 [facility] Automated lymphocyte count a s percentage of total leukocytesOrdered By: Leena Serra on 12-22-2024 Lymphocytes/100 WBC Auto (Unsp spec) 22.3 % 19-41 [facility] BUN/creatinine ratioOrdered By: Leena Serra on 12-22-2024 Urea nitrogen/Creatinine [Mass ratio] 19.1 mg/mg 10-20 [facility] Basophil percentageOrdered B y: Leena Ponce on 12-22-2024 Basophils/100 WBC (Bld) 0.6 % 0-1 [facility] Bilirubin, totalOrdered By: Leena Leijaandrew on 12-22-2024 Bilirubin [Mass/Vol] 1.06 mg/dL 0.00-1.30 [facility] CBC W/Diff, Automatedon 12-02 Absolute Lymph 0.80 X10 3/uL Low 0.83-4.51 [facility] Comment on above: Performed By: #### L 500.4050, L100.0100 ####[facility] [address] [place], [address] Absolute Neut 2.2 X10 3/uL Normal 2.0-7.7 [facility] Comment on above: Performed By: #### L 500.4050, L100.0100 ####[facility] [address] [place], [address] Basophils/100 WBC (Bld) 0.6 % Normal 0-1 [facility] Comment on above: Performed By: #### L 500.4050, L100.0100 ####[facility] [address] [place], [address] Eosinophils/100 WBC (Bld) 0.8 % Normal 0-5 [facility] Comment on above: Performed By: #### L 500.4050, L100.0100 ####[facility] [address] [place], [address] Erythrocyte distribution width (RBC) [Ratio] 14.4 % Normal 11.6-14.6 [facility] Comment on above: Performed By: #### L 500.4050, L100.0100 ####[facility] [address] [place], [address] Hematocrit (Bld) [Volume fraction] 44.5 % Normal 37-47 [facility] Comment on above: Performed By: #### L 500.4050, L100.0100 ####[facility] [address] [place], [address] Hemoglobin (Bld) [Mass/Vol] 15.2 g/dL High 12.0-15.0 [facility] Comment on above: Performed By: #### L 500.4050, L100.0100 ####[facility] [address] [place], [address] IG% 0.300 Normal 0.0-0.9 [facility] Comment on above: Result Comment: IG% - Immature Granulocytes (promyelocytes, myelocytes andmetamyelocytes) > 1% indicates that a LEFT SHIFT is Present. Performed By: #### L 500.4050, L100.0100 ####[facility] [address] [place], [address] Lymphocytes/100 WBC (Bld) 22.3 % Normal 19-41 [facility] Comment on above: Performed By: #### L 500.4050, L100.0100 ####[facility] [address] [place], [address] MCH (RBC) [Entitic mass] 33.9 pg High 27.0-32.0 [facility] Comment on above: Performed By: #### L 500.4050, L100.0100 ####[facility] [address] [place], [address] MCHC (RBC) [Mass/Vol] 34.2 g/dL Normal 32-36 [facility] Comment on above: Performed By: #### L 500.4050, L100.0100 ####[facility] [address] [place], [address] MCV (RBC) [Entitic vol] 99.1 fL High 81-99 [facility] Comment on above: Performed By: #### L 500.4050, L100.0100 ####[facility] [address] [place], [address] Monocytes/100 WBC (Bld) 15.6 % High 0-10 [facility] Comment on above: Performed By: #### L 500.4050, L100.0100 ####[facility] [address] [place], [address] Neutrophils/100 WBC (Bld) 60.4 % Normal 47-70 [facility] Comment on above: Performed By: #### L 500.4050, L100.0100 ####[facility] [address] [place], [address] Nucleated RBC (Bld) [#/Vol] 0 10*3/uL Normal 0-5 [facility] Comment on above: Performed By: #### L 500.4050, L100.0100 ####[facility] [address] [place], [address] Platelet mean volume (Bld) [Entitic vol] 12.4 fL High 6.2-12.0 [facility] Comment on above: Performed By: #### L 500.4050, L100.0100 ####[facility] [address] [place], [address] Platelets (Bld) [#/Vol] 93 10*3/uL Low 150-450 [facility] Comment on above: Performed By: #### L 500.4050, L100.0100 ####[facility] [address] [place], [address] RBC (Bld) [#/Vol] 4.49 10*6/uL Normal 4.2-5.4 [facility] Comment on above: Performed By: #### L 500.4050, L100.0100 ####[facility] [address] [place], [address] RDW SD 52.5 fl High 35.1-43.9 [facility] Comment on above: Performed By: #### L 500.4050, L100.0100 ####[facility] [address] [place], [address] WBC (Bld) [#/Vol] 3.6 10*3/uL Low 4.4-11.0 [facility] Comment on above: Performed By: #### L 500.4050, L100.0100 ####[facility] [address] [place], [address] Carbon dioxide, total [Moles /volume] in Central venous bloodOrdered By: Leena Serra on 12-22-2024 CO2 [Moles/Vol] 17.9 mmol/L Low 21.0-32.0 [facility] Chloride assayOrdered By: Wisam Serra on 12-22-2024 Chloride [Moles/Vol] 100 mmol/L 98-108 [facility] Comprehensive Metabolic Prof ilon 12-22-2024 Albumin [Mass/Vol] 4.2 g/dL Normal 3.4-4.8 [facility] Comment on above: Performed By: #### L 500.4050, L100.0100 ####[facility] [address] [place], [address] Albumin/Globulin [Mass ratio] 1.9 {ratio} Normal 0.9-2.4 [facility] Comment on above: Performed By: #### L 500.4050, L100.0100 ####[facility] [address] [place], [address] ALK PHOS 43 U/L Normal 35-104 [facility] Comment on above: Performed By: #### L 500.4050, L100.0100 ####[facility] [address] [place], [address] ALT [Catalytic activity/Vol] 32 U/L Normal <=34 [facility] Comment on above: Performed By: #### L 500.4050, L100.0100 ####[facility] [address] [place], [address] AST [Catalytic activity/Vol] 28 U/L Normal <=31 [facility] Comment on above: Performed By: #### L 500.4050, L100.0100 ####[facility] [address] [place], [address] Bilirubin [Mass/Vol] 1.06 mg/dL Normal 0.00-1.30 [facility] Comment on above: Performed By: #### L 500.4050, L100.0100 ####[facility] [address] [place], [address] BUN/CRE 19.1 RATIO Normal 10-20 [facility] Comment on above: Performed By: #### L 500.4050, L100.0100 ####[facility] [address] [place], [address] Calcium [Mass/Vol] 9.4 mg/dL Normal 7.6-11.0 [facility] Comment on above: Performed By: #### L 500.4050, L100.0100 ####[facility] [address] [place], [address] Chloride [Moles/Vol] 100 mmol/L Normal 98-108 [facility] Comment on above: Performed By: #### L 500.4050, L100.0100 ####[facility] [address] [place], [address] CO2 [Moles/Vol] 17.9 mmol/L Low 21.0-32.0 [facility] Comment on above: Performed By: #### L 500.4050, L100.0100 ####[facility] [address] [place], [address] Creatinine [Mass/Vol] 1.39 mg/dL High 0.70-1.20 [facility] Comment on above: Performed By: #### L 500.4050, L100.0100 ####[facility] [address] [place], [address] GAP 16 High 5-15 [facility] Comment on above: Performed By: #### L 500.4050, L100.0100 ####[facility] [address] [place], [address] GFR/1.73 sq M.predicted among non-blacks MDRD (S/P/Bld) [Vol rate/Area] 36 mL/min/{1.73_m2} Low >60 [facility] Comment on above: Result Comment: mL/m in/1.73m2 CKD-EPI Creatinine Equation (2020) Performed By: #### L 500.4050, L100.0100 ####[facility] [address] [place], [address] Globulin (S) [Mass/Vol] 2.3 g/dL Normal 2.2-4.2 [facility] Comment on above: Performed By: #### L 500.4050, L100.0100 ####[facility] [address] [place], [address] Glucose [Mass/Vol] 94 mg/dL Normal 70-99 [facility] Comment on above: Performed By: #### L 500.4050, L100.0100 ####[facility] [address] [place], [address] Potassium [Moles/Vol] 4.1 mmol/L Normal 3.3-5.1 [facility] Comment on above: Performed By: #### L 500.4050, L100.0100 ####[facility] [address] [place], [address] Sodium [Moles/Vol] 135 mmol/L Normal 133-145 [facility] Comment on above: Performed By: #### L 500.4050, L100.0100 ####[facility] [address] [place], [address] T PROT 6.5 g/dL Normal 5.9-8.4 [facility] Comment on above: Performed By: #### L 500.4050, L100.0100 ####[facility] [address] [place], [address] Urea nitrogen [Mass/Vol] 27 mg/dL High 4-19 [facility] Comment on above: Performed By: #### L 500.4050, L100.0100 ####[facility] [address] [place], [address] Eosinophil percentageOrdered By: Leena Serra on 12-22-2024 Eosinophils/100 WBC (Bld) 0.8 % 0-5 [facility] Erythrocyte distribution wid th ratioOrdered By: [facility] on 12-22-2024 Erythrocyte distribution width (RBC) [Ratio] 14.4 % 11.6-14.6 [facility] Erythrocyte distribution wid th standard deviationOrdered By: Leena Serra on 12-22-2024 Erythrocyte distribution width (RBC) [Ratio] 52.5 fl High 35.1-43.9 [facility] Glomerular filtration rate ( GFR) estimation/1.73 sq m using serum, plasma, or whole bOrdered By: Leena Serra on 12-22-2024 GFR/1.73 sq M.predicted among non-blacks MDRD (S/P/Bld) [Vol rate/Area] 36 mL/min/{1.73_m2} Low >60 [facility] Hematocrit Auto (Bld) [Volum e fraction]Ordered By: Leena Serra on 12-22-2024 Hematocrit (Bld) [Volume fraction] 44.5 % 37-47 [facility] Hemoglobin measurementOrdere d By: Leena Serra on 12-22-2024 Hemoglobin (Bld) [Mass/Vol] 15.2 g/dL High 12.0-15.0 [facility] Immature granulocytes/100 WB C Auto (Bld)Ordered By: Leena Serra on 12-22-2024 Immature granulocytes/100 WBC (Bld) 0.300 % 0.0-0.9 [facility] MCV (mean corpuscular volume ) determinationOrdered By: Leena Serra on 12-22-2024 MCV (RBC) [Entitic vol] 99.1 fL High 81-99 [facility] Mean corpuscular hemoglobin (MCH) determinationOrdered By: Leena Serra on 12-22-2024 MCH (RBC) [Entitic mass] 33.9 pg High 27.0-32.0 [facility] Monocyte percentageOrdered B y: Leena Serra on 12-22-2024 Monocytes/100 WBC (Bld) 15.6 % High 0-10 [facility] Neutrophil percentageOrdered By: Leena Serra on 12-22-2024 Neutrophils/100 WBC (Bld) 60.4 % 47-70 [facility] No Panel InformationOrdered By: Leena Serra on 12-22-2024 28 U/L <32 [facility] Platelet countOrdered By: Wisam Serra on 12-22-2024 Platelets (Bld) [#/Vol] 93 10*3/uL Low 150-450 [facility] Potassium measurement (mass/ volume)Ordered By: Leena Serra on 12-22-2024 Potassium (Unsp spec) [Mass/Vol] 4.1 mmol/L 3.3-5.1 [facility] RBC Auto (Bld) [#/Vol]Ordere d By: Leena Serra on 12-22-2024 RBC (Bld) [#/Vol] 4.49 10*6/uL 4.2-5.4 [facility] Serum creatinine measurement (mass/volume)Ordered By: Leena Serra on 12-22-2024 Creatinine [Mass/Vol] 1.39 mg/dL High 0.70-1.20 [facility] Serum globulin measurementOr dered By: Leena Serra on 12-22-2024 Globulin (S) [Mass/Vol] 2.3 g/dL 2.2-4.2 [facility] Serum glucose measurement (m ass/volume)Ordered By: Leena Serra on 12-22-2024 Glucose [Mass/Vol] 94 mg/dL 70-99 [facility] Serum or plasma alanine hay otransferase (ALT) measurementOrdered By: Leena Serra on 12-22-2024 ALT [Catalytic activity/Vol] 32 U/L <35 [facility] Serum or plasma albumin criss urement (mass/volume)Ordered By: Leena Serra on 12-22-2024 Albumin [Mass/Vol] 4.2 g/dL 3.4-4.8 [facility] Serum or plasma albumin/glob ulin mass ratioOrdered By: Leena Serra on 12-22-2024 Albumin/Globulin [Mass ratio] 1.9 {ratio} 0.9-2.4 [facility] Serum or plasma alkaline ezra sphatase measurementOrdered By: Leena Serra on 12-22-2024 ALP [Catalytic activity/Vol] 43 U/L 35-104 [facility] Serum or plasma calcium criss urement (mass/volume)Ordered By: Leena Serra on 12-22-2024 Calcium [Mass/Vol] 9.4 mg/dL 7.6-11.0 [facility] Serum or plasma urea nitroge n measurement (mass/volume)Ordered By: Leena Serra on 12-22-2024 Urea nitrogen [Mass/Vol] 27 mg/dL High -19 [facility] Sodium levelOrdered By: Ara Serra on 12-22-2024 Sodium [Moles/Vol] 135 mmol/L 133-145 [facility] Total proteinOrdered By: Yolette Serra on 12-22-2024 Protein [Mass/Vol] 6.5 g/dL 5.9-8.4 [facility] White blood cell (WBC) count Ordered By: Leena Serra on 12-22-2024 WBC (Bld) [#/Vol] 3.6 10*3/uL Low 4.4-11.0 [facility] Cerv Spine 4 or 5 Viewson Cerv Spine 4 or 5 Views Normal [facility] Orthopedic Visit Reporton Orthopedic Visit Report Normal [facility] Basic Metabolic Profile (BMP )on 12-09-2024 BUN Normal 4-19 [facility] Comment on above: Result Comment: Canc elled via OM: MD Ordered Performed By: #### L 500.2500, L100.0100 ####[facility] [address] [place], [address] BUN/CRE Normal 10-20 [facility] Comment on above: Result Comment: Canc elled via OM: MD Ordered Performed By: #### L 500.2500, L100.0100 ####[facility] [address] [place], [address] Calcium Normal 7.6-11.0 [facility] Comment on above: Result Comment: Canc elled via OM: MD Ordered Performed By: #### L 500.2500, L100.0100 ####[facility] [address] [place], [address] CL Normal 98-108 [facility] Comment on above: Result Comment: Canc elled via OM: MD Ordered Performed By: #### L 500.2500, L100.0100 ####[facility] [address] [place], [address] CO2 Normal 21.0-32.0 [facility] Comment on above: Result Comment: Canc elled via OM: MD Ordered Performed By: #### L 500.2500, L100.0100 ####[facility] [address] [place], [address] CREAT,SERUM Normal 0.70-1.20 [facility] Comment on above: Result Comment: Canc elled via OM: MD Ordered Performed By: #### L 500.2500, L100.0100 ####[facility] [address] [place], [address] eGFR Normal >60 [facility] Comment on above: Result Comment: Canc elled via OM: MD Ordered Performed By: #### L 500.2500, L100.0100 ####[facility] [address] [place], [address] GAP Normal 5-15 [facility] Comment on above: Result Comment: Canc elled via OM: MD Ordered Performed By: #### L 500.2500, L100.0100 ####[facility] [address] [place], [address] GLU Normal 70-99 [facility] Comment on above: Result Comment: Canc elled via OM: MD Ordered Performed By: #### L 500.2500, L100.0100 ####[facility] [address] [place], [address] Potassium Normal 3.3-5.1 [facility] Comment on above: Result Comment: Canc elled via OM: MD Ordered Performed By: #### L 500.2500, L100.0100 ####[facility] [address] [place], [address] Basic Metabolic Profile (BMP) Normal 133-145 [facility] Comment on above: Result Comment: Canc elled via OM: MD Ordered Performed By: #### L 500.2500, L100.0100 ####[facility] [address] [place], [address] CBC W/Diff, Automatedon 08-0 Absolute Neut Normal 2.0-7.7 [facility] Comment on above: Result Comment: Canc elled via OM: MD Ordered Performed By: #### L 500.2500, L100.0100 ####[facility] [address] [place], [address] HCT Normal 37-47 [facility] Comment on above: Result Comment: Canc elled via OM: MD Ordered Performed By: #### L 500.2500, L100.0100 ####[facility] [address] [place], [address] HGB Normal 12.0-15.0 [facility] Comment on above: Result Comment: Canc elled via OM: MD Ordered Performed By: #### L 500.2500, L100.0100 ####[facility] [address] [place], [address] MCH Normal 27.0-32.0 [facility] Comment on above: Result Comment: Canc elled via OM: MD Ordered Performed By: #### L 500.2500, L100.0100 ####[facility] [address] [place], [address] MCHC Normal 32-36 [facility] Comment on above: Result Comment: Canc elled via OM: MD Ordered Performed By: #### L 500.2500, L100.0100 ####[facility] [address] [place], [address] MCV Normal 81-99 [facility] Comment on above: Result Comment: Canc elled via OM: MD Ordered Performed By: #### L 500.2500, L100.0100 ####[facility] [address] [place], [address] NEUT% Normal 47-70 [facility] Comment on above: Result Comment: Canc elled via OM: MD Ordered Performed By: #### L 500.2500, L100.0100 ####[facility] [address] [place], [address] PLT Normal 150-450 [facility] Comment on above: Result Comment: Canc elled via OM: MD Ordered Performed By: #### L 500.2500, L100.0100 ####[facility] [address] [place], [address] RBC Normal 4.2-5.4 [facility] Comment on above: Result Comment: Canc elled via OM: MD Ordered Performed By: #### L 500.2500, L100.0100 ####[facility] [address] [place], [address] RDW CV Normal 11.6-14.6 [facility] Comment on above: Result Comment: Canc elled via OM: MD Ordered Performed By: #### L 500.2500, L100.0100 ####[facility] [address] [place], [address] RDW SD Normal 35.1-43.9 [facility] Comment on above: Result Comment: Canc elled via OM: MD Ordered Performed By: #### L 500.2500, L100.0100 ####[facility] [address] [place], [address] WBC Normal 4.4-11.0 [facility] Comment on above: Result Comment: Canc elled via OM: MD Ordered Performed By: #### L 500.2500, L100.0100 ####[facility] [address] [place], [address] Basic Metabolic Profile (BMP )on 12-08-2024 BUN Normal 4-19 [facility] Comment on above: Result Comment: Canc elled via OM: Order cancelled - Patient discharged Performed By: #### L 500.2500, L100.0100 ####[facility] [address] [place], [address] Result Comment: Canc elled via OM: MD Ordered Performed By: #### L 100.0100, L500.2500 ####[facility] [address] [place], [address] BUN/CRE Normal 10-20 [facility] Comment on above: Result Comment: Canc elled via OM: Order cancelled - Patient discharged Performed By: #### L 500.2500, L100.0100 ####[facility] [address] [place], [address] Result Comment: Canc elled via OM: MD Ordered Performed By: #### L 100.0100, L500.2500 ####[facility] [address] [place], [address] Calcium Normal 7.6-11.0 [facility] Comment on above: Result Comment: Canc elled via OM: Order cancelled - Patient discharged Performed By: #### L 500.2500, L100.0100 ####[facility] [address] [place], [address] Result Comment: Canc elled via OM: MD Ordered Performed By: #### L 100.0100, L500.2500 ####[facility] [address] [place], [address] CL Normal 98-108 [facility] Comment on above: Result Comment: Canc elled via OM: Order cancelled - Patient discharged Performed By: #### L 500.2500, L100.0100 ####[facility] [address] [place], [address] Result Comment: Canc elled via OM: MD Ordered Performed By: #### L 100.0100, L500.2500 ####[facility] [address] [place], [address] CO2 Normal 21.0-32.0 [facility] Comment on above: Result Comment: Canc elled via OM: Order cancelled - Patient discharged Performed By: #### L 500.2500, L100.0100 ####[facility] [address] [place], [address] Result Comment: Canc elled via OM: MD Ordered Performed By: #### L 100.0100, L500.2500 ####[facility] [address] [place], [address] CREAT,SERUM Normal 0.70-1.20 [facility] Comment on above: Result Comment: Canc elled via OM: Order cancelled - Patient discharged Performed By: #### L 500.2500, L100.0100 ####[facility] [address] [place], [address] Result Comment: Canc elled via OM: MD Ordered Performed By: #### L 100.0100, L500.2500 ####[facility] [address] [place], [address] eGFR Normal >60 [facility] Comment on above: Result Comment: Canc elled via OM: Order cancelled - Patient discharged Performed By: #### L 500.2500, L100.0100 ####[facility] [address] [place], [address] Result Comment: Canc elled via OM: MD Ordered Performed By: #### L 100.0100, L500.2500 ####[facility] [address] [place], [address] GAP Normal 5-15 [facility] Comment on above: Result Comment: Canc elled via OM: Order cancelled - Patient discharged Performed By: #### L 500.2500, L100.0100 ####[facility] [address] [place], [address] Result Comment: Canc elled via OM: MD Ordered Performed By: #### L 100.0100, L500.2500 ####[facility] [address] [place], [address] GLU Normal 70-99 [facility] Comment on above: Result Comment: Canc elled via OM: Order cancelled - Patient discharged Performed By: #### L 500.2500, L100.0100 ####[facility] [address] [place], [address] Result Comment: Canc elled via OM: MD Ordered Performed By: #### L 100.0100, L500.2500 ####[facility] [address] [place], [address] Potassium Normal 3.3-5.1 [facility] Comment on above: Result Comment: Canc elled via OM: Order cancelled - Patient discharged Performed By: #### L 500.2500, L100.0100 ####[facility] [address] [place], [address] Result Comment: Canc elled via OM: MD Ordered Performed By: #### L 100.0100, L500.2500 ####[facility] [address] [place], [address] Basic Metabolic Profile (BMP) Normal 133-145 [facility] Comment on above: Result Comment: Canc elled via OM: Order cancelled - Patient discharged Performed By: #### L 500.2500, L100.0100 ####[facility] [address] [place], [address] Result Comment: Canc elled via OM: MD Ordered Performed By: #### L 100.0100, L500.2500 ####[facility] [address] [place], [address] CBC W/Diff, Automatedon 08-0 8-2024 Absolute Neut Normal 2.0-7.7 [facility] Comment on above: Result Comment: Canc elled via OM: Order cancelled - Patient discharged Performed By: #### L 500.2500, L100.0100 ####[facility] [address] [place], [address] Result Comment: Canc elled via OM: MD Ordered Performed By: #### L 100.0100, L500.2500 ####[facility] [address] [place], [address] HCT Normal 37-47 [facility] Comment on above: Result Comment: Canc elled via OM: Order cancelled - Patient discharged Performed By: #### L 500.2500, L100.0100 ####[facility] [address] [place], [address] Result Comment: Canc elled via OM: MD Ordered Performed By: #### L 100.0100, L500.2500 ####[facility] [address] [place], [address] HGB Normal 12.0-15.0 [facility] Comment on above: Result Comment: Canc elled via OM: Order cancelled - Patient discharged Performed By: #### L 500.2500, L100.0100 ####[facility] [address] [place], [address] Result Comment: Canc elled via OM: MD Ordered Performed By: #### L 100.0100, L500.2500 ####[facility] [address] [place], [address] MCH Normal 27.0-32.0 [facility] Comment on above: Result Comment: Canc elled via OM: Order cancelled - Patient discharged Performed By: #### L 500.2500, L100.0100 ####[facility] [address] [place], [address] Result Comment: Canc elled via OM: MD Ordered Performed By: #### L 100.0100, L500.2500 ####[facility] [address] [place], [address] MCHC Normal 32-36 [facility] Comment on above: Result Comment: Canc elled via OM: Order cancelled - Patient discharged Performed By: #### L 500.2500, L100.0100 ####[facility] [address] [place], [address] Result Comment: Canc elled via OM: MD Ordered Performed By: #### L 100.0100, L500.2500 ####[facility] [address] [place], [address] MCV Normal 81-99 [facility] Comment on above: Result Comment: Canc elled via OM: Order cancelled - Patient discharged Performed By: #### L 500.2500, L100.0100 ####[facility] [address] [place], [address] Result Comment: Canc elled via OM: MD Ordered Performed By: #### L 100.0100, L500.2500 ####[facility] [address] [place], [address] NEUT% Normal 47-70 [facility] Comment on above: Result Comment: Canc elled via OM: Order cancelled - Patient discharged Performed By: #### L 500.2500, L100.0100 ####[facility] [address] [place], [address] Result Comment: Canc elled via OM: MD Ordered Performed By: #### L 100.0100, L500.2500 ####[facility] [address] [place], [address] PLT Normal 150-450 [facility] Comment on above: Result Comment: Canc elled via OM: Order cancelled - Patient discharged Performed By: #### L 500.2500, L100.0100 ####[facility] [address] [place], [address] Result Comment: Canc elled via OM: MD Ordered Performed By: #### L 100.0100, L500.2500 ####[facility] [address] [place], [address] RBC Normal 4.2-5.4 [facility] Comment on above: Result Comment: Canc elled via OM: Order cancelled - Patient discharged Performed By: #### L 500.2500, L100.0100 ####[facility] [address] [place], [address] Result Comment: Canc elled via OM: MD Ordered Performed By: #### L 100.0100, L500.2500 ####[facility] [address] [place], [address] RDW CV Normal 11.6-14.6 [facility] Comment on above: Result Comment: Canc elled via OM: Order cancelled - Patient discharged Performed By: #### L 500.2500, L100.0100 ####[facility] [address] [place], [address] Result Comment: Canc elled via OM: MD Ordered Performed By: #### L 100.0100, L500.2500 ####[facility] [address] [place], [address] RDW SD Normal 35.1-43.9 [facility] Comment on above: Result Comment: Canc elled via OM: Order cancelled - Patient discharged Performed By: #### L 500.2500, L100.0100 ####[facility] [address] [place], [address] Result Comment: Canc elled via OM: MD Ordered Performed By: #### L 100.0100, L500.2500 ####[facility] [address] [place], [address] WBC Normal 4.4-11.0 [facility] Comment on above: Result Comment: Canc elled via OM: Order cancelled - Patient discharged Performed By: #### L 500.2500, L100.0100 ####[facility] [address] [place], [address] Result Comment: Canc elled via OM: MD Ordered Performed By: #### L 100.0100, L500.2500 ####[facility] [address] [place], [address] Basic Metabolic Profile (BMP )on 12-07-2024 BUN Normal 4-19 [facility] Comment on above: Result Comment: Canc elled via OM: MD Ordered Performed By: #### L 100.0100, L500.2500 ####[facility] [address] [place], [address] Result Comment: Canc elled via OM: Order cancelled - Patient discharged Performed By: #### L 500.2500, L100.0100 ####[facility] [address] [place], [address] BUN/CRE Normal 10-20 [facility] Comment on above: Result Comment: Canc elled via OM: MD Ordered Performed By: #### L 100.0100, L500.2500 ####[facility] [address] [place], [address] Result Comment: Canc elled via OM: Order cancelled - Patient discharged Performed By: #### L 500.2500, L100.0100 ####[facility] [address] [place], [address] Calcium Normal 7.6-11.0 [facility] Comment on above: Result Comment: Canc elled via OM: MD Ordered Performed By: #### L 100.0100, L500.2500 ####[facility] [address] [place], [address] Result Comment: Canc elled via OM: Order cancelled - Patient discharged Performed By: #### L 500.2500, L100.0100 ####[facility] [address] [place], [address] CL Normal 98-108 [facility] Comment on above: Result Comment: Canc elled via OM: MD Ordered Performed By: #### L 100.0100, L500.2500 ####[facility] [address] [place], [address] Result Comment: Canc elled via OM: Order cancelled - Patient discharged Performed By: #### L 500.2500, L100.0100 ####[facility] [address] [place], [address] CO2 Normal 21.0-32.0 [facility] Comment on above: Result Comment: Canc elled via OM: MD Ordered Performed By: #### L 100.0100, L500.2500 ####[facility] [address] [place], [address] Result Comment: Canc elled via OM: Order cancelled - Patient discharged Performed By: #### L 500.2500, L100.0100 ####[facility] [address] [place], [address] CREAT,SERUM Normal 0.70-1.20 [facility] Comment on above: Result Comment: Canc elled via OM: MD Ordered Performed By: #### L 100.0100, L500.2500 ####[facility] [address] [place], [address] Result Comment: Canc elled via OM: Order cancelled - Patient discharged Performed By: #### L 500.2500, L100.0100 ####[facility] [address] [place], [address] eGFR Normal >60 [facility] Comment on above: Result Comment: Canc elled via OM: MD Ordered Performed By: #### L 100.0100, L500.2500 ####[facility] [address] [place], [address] Result Comment: Canc elled via OM: Order cancelled - Patient discharged Performed By: #### L 500.2500, L100.0100 ####[facility] [address] [place], [address] GAP Normal 5-15 [facility] Comment on above: Result Comment: Canc elled via OM: MD Ordered Performed By: #### L 100.0100, L500.2500 ####[facility] [address] [place], [address] Result Comment: Canc elled via OM: Order cancelled - Patient discharged Performed By: #### L 500.2500, L100.0100 ####[facility] [address] [place], [address] GLU Normal 70-99 [facility] Comment on above: Result Comment: Canc elled via OM: MD Ordered Performed By: #### L 100.0100, L500.2500 ####[facility] [address] [place], [address] Result Comment: Canc elled via OM: Order cancelled - Patient discharged Performed By: #### L 500.2500, L100.0100 ####[facility] [address] [place], [address] Potassium Normal 3.3-5.1 [facility] Comment on above: Result Comment: Canc elled via OM: MD Ordered Performed By: #### L 100.0100, L500.2500 ####[facility] [address] [place], [address] Result Comment: Canc elled via OM: Order cancelled - Patient discharged Performed By: #### L 500.2500, L100.0100 ####[facility] [address] [place], [address] Basic Metabolic Profile (BMP) Normal 133-145 [facility] Comment on above: Result Comment: Canc elled via OM: MD Ordered Performed By: #### L 100.0100, L500.2500 ####[facility] [address] [place], [address] Result Comment: Canc elled via OM: Order cancelled - Patient discharged Performed By: #### L 500.2500, L100.0100 ####[facility] [address] [place], [address] CBC W/Diff, Automatedon 08-0 -2024 Absolute Neut Normal 2.0-7.7 [facility] Comment on above: Result Comment: Canc elled via OM: MD Ordered Performed By: #### L 100.0100, L500.2500 ####[facility] [address] [place], [address] Result Comment: Canc elled via OM: Order cancelled - Patient discharged Performed By: #### L 500.2500, L100.0100 ####[facility] [address] [place], [address] HCT Normal 37-47 [facility] Comment on above: Result Comment: Canc elled via OM: MD Ordered Performed By: #### L 100.0100, L500.2500 ####[facility] [address] [place], [address] Result Comment: Canc elled via OM: Order cancelled - Patient discharged Performed By: #### L 500.2500, L100.0100 ####[facility] [address] [place], [address] HGB Normal 12.0-15.0 [facility] Comment on above: Result Comment: Canc elled via OM: MD Ordered Performed By: #### L 100.0100, L500.2500 ####[facility] [address] [place], [address] Result Comment: Canc elled via OM: Order cancelled - Patient discharged Performed By: #### L 500.2500, L100.0100 ####[facility] [address] [place], [address] MCH Normal 27.0-32.0 [facility] Comment on above: Result Comment: Canc elled via OM: MD Ordered Performed By: #### L 100.0100, L500.2500 ####[facility] [address] [place], [address] Result Comment: Canc elled via OM: Order cancelled - Patient discharged Performed By: #### L 500.2500, L100.0100 ####[facility] [address] [place], [address] MCHC Normal 32-36 [facility] Comment on above: Result Comment: Canc elled via OM: MD Ordered Performed By: #### L 100.0100, L500.2500 ####[facility] [address] [place], [address] Result Comment: Canc elled via OM: Order cancelled - Patient discharged Performed By: #### L 500.2500, L100.0100 ####[facility] [address] [place], [address] MCV Normal 81-99 [facility] Comment on above: Result Comment: Canc elled via OM: MD Ordered Performed By: #### L 100.0100, L500.2500 ####[facility] [address] [place], [address] Result Comment: Canc elled via OM: Order cancelled - Patient discharged Performed By: #### L 500.2500, L100.0100 ####[facility] [address] [place], [address] NEUT% Normal 47-70 [facility] Comment on above: Result Comment: Canc elled via OM: MD Ordered Performed By: #### L 100.0100, L500.2500 ####[facility] [address] [place], [address] Result Comment: Canc elled via OM: Order cancelled - Patient discharged Performed By: #### L 500.2500, L100.0100 ####[facility] [address] [place], [address] PLT Normal 150-450 [facility] Comment on above: Result Comment: Canc elled via OM: MD Ordered Performed By: #### L 100.0100, L500.2500 ####[facility] [address] [place], [address] Result Comment: Canc elled via OM: Order cancelled - Patient discharged Performed By: #### L 500.2500, L100.0100 ####[facility] [address] [place], [address] RBC Normal 4.2-5.4 [facility] Comment on above: Result Comment: Canc elled via OM: MD Ordered Performed By: #### L 100.0100, L500.2500 ####[facility] [address] [place], [address] Result Comment: Canc elled via OM: Order cancelled - Patient discharged Performed By: #### L 500.2500, L100.0100 ####[facility] [address] [place], [address] RDW CV Normal 11.6-14.6 [facility] Comment on above: Result Comment: Canc elled via OM: MD Ordered Performed By: #### L 100.0100, L500.2500 ####[facility] [address] [place], [address] Result Comment: Canc elled via OM: Order cancelled - Patient discharged Performed By: #### L 500.2500, L100.0100 ####[facility] [address] [place], [address] RDW SD Normal 35.1-43.9 [facility] Comment on above: Result Comment: Canc elled via OM: MD Ordered Performed By: #### L 100.0100, L500.2500 ####[facility] [address] [place], [address] Result Comment: Canc elled via OM: Order cancelled - Patient discharged Performed By: #### L 500.2500, L100.0100 ####[facility] [address] [place], [address] WBC Normal 4.4-11.0 [facility] Comment on above: Result Comment: Canc elled via OM: MD Ordered Performed By: #### L 100.0100, L500.2500 ####[facility] [address] [place], [address] Result Comment: Canc elled via OM: Order cancelled - Patient discharged Performed By: #### L 500.2500, L100.0100 ####[facility] [address] [place], [address] Absolute lymphocyte countOrd ered By: Ajith Quiñones on 12-06-2024 Lymphocytes Auto (Unsp spec) [#/Vol] 0.89 10*3/uL 0.83-4.51 [facility] Absolute neutrophil countOrd ered By: Ajith Quiñones on 12-06-2024 Neutrophils (Bld) [#/Vol] 1.7 10*3/uL Low 2.0-7.7 [facility] Anion gap in Serum or Plasma Ordered By: Ajith Quiñones on 12-06-2024 Anion gap [Moles/Vol] 13 mmol/L 5-15 [facility] Automated lymphocyte count a s percentage of total leukocytesOrdered By: Ajith Quiñones on 12-06-2024 Lymphocytes/100 WBC Auto (Unsp spec) 26.8 % 19-41 [facility] BUN/creatinine ratioOrdered By: Ajith Quiñones on 12-06-2024 Urea nitrogen/Creatinine [Mass ratio] 24.9 mg/mg High 10-20 [facility] Basic Metabolic Profile (BMP )on 12-06-2024 BUN/CRE 24.9 RATIO High 10-20 [facility] Comment on above: Performed By: #### L 501.5200, L100.0100, L501.2300, L500.2500 ####[facility] [address] [place], [address] Calcium [Mass/Vol] 8.4 mg/dL Normal 7.6-11.0 [facility] Comment on above: Performed By: #### L 501.5200, L100.0100, L501.2300, L500.2500 ####[facility] [address] [place], [address] Chloride [Moles/Vol] 104 mmol/L Normal 98-108 [facility] Comment on above: Performed By: #### L 501.5200, L100.0100, L501.2300, L500.2500 ####[facility] [address] [place], [address] CO2 [Moles/Vol] 17.8 mmol/L Low 21.0-32.0 [facility] Comment on above: Performed By: #### L 501.5200, L100.0100, L501.2300, L500.2500 ####[facility] [address] [place], [address] Creatinine [Mass/Vol] 1.14 mg/dL Normal 0.70-1.20 [facility] Comment on above: Performed By: #### L 501.5200, L100.0100, L501.2300, L500.2500 ####[facility] [address] [place], [address] ECRCL 27.31 ml/min Low 50-250 [facility] Comment on above: Performed By: #### L 501.5200, L100.0100, L501.2300, L500.2500 ####[facility] [address] [place], [address] GAP 13 Normal 5-15 [facility] Comment on above: Performed By: #### L 501.5200, L100.0100, L501.2300, L500.2500 ####[facility] [address] [place], [address] GFR/1.73 sq M.predicted among non-blacks MDRD (S/P/Bld) [Vol rate/Area] 46 mL/min/{1.73_m2} Low >60 [facility] Comment on above: Result Comment: mL/m in/1.73m2 CKD-EPI Creatinine Equation (2020) Performed By: #### L 501.5200, L100.0100, L501.2300, L500.2500 ####[facility] [address] [place], [address] Glucose [Mass/Vol] 83 mg/dL Normal 70-99 [facility] Comment on above: Performed By: #### L 501.5200, L100.0100, L501.2300, L500.2500 ####[facility] [address] [place], [address] Potassium [Moles/Vol] 4.2 mmol/L Normal 3.3-5.1 [facility] Comment on above: Result Comment: Hemo lysis present, Results??could be affected.?? Performed By: #### L 501.5200, L100.0100, L501.2300, L500.2500 ####[facility] [address] [place], [address] Sodium [Moles/Vol] 135 mmol/L Normal 133-145 [facility] Comment on above: Performed By: #### L 501.5200, L100.0100, L501.2300, L500.2500 ####[facility] [address] [place], [address] Urea nitrogen [Mass/Vol] 28 mg/dL High 4-19 [facility] Comment on above: Performed By: #### L 501.5200, L100.0100, L501.2300, L500.2500 ####[facility] [address] [place], [address] BUN Normal 4-19 [facility] Comment on above: Result Comment: Canc elled via OM: MD Ordered Performed By: #### L 100.0100, L500.2500 ####[facility] [address] [place], [address] BUN/CRE Normal 10-20 [facility] Comment on above: Result Comment: Canc elled via OM: MD Ordered Performed By: #### L 100.0100, L500.2500 ####[facility] [address] [place], [address] Calcium Normal 7.6-11.0 [facility] Comment on above: Result Comment: Canc elled via OM: MD Ordered Performed By: #### L 100.0100, L500.2500 ####[facility] [address] [place], [address] CL Normal 98-108 [facility] Comment on above: Result Comment: Canc elled via OM: MD Ordered Performed By: #### L 100.0100, L500.2500 ####[facility] [address] [place], [address] CO2 Normal 21.0-32.0 [facility] Comment on above: Result Comment: Canc elled via OM: MD Ordered Performed By: #### L 100.0100, L500.2500 ####[facility] [address] [place], [address] CREAT,SERUM Normal 0.70-1.20 [facility] Comment on above: Result Comment: Canc elled via OM: MD Ordered Performed By: #### L 100.0100, L500.2500 ####[facility] [address] [place], [address] eGFR Normal >60 [facility] Comment on above: Result Comment: Canc elled via OM: MD Ordered Performed By: #### L 100.0100, L500.2500 ####[facility] [address] [place], [address] GAP Normal 5-15 [facility] Comment on above: Result Comment: Canc elled via OM: MD Ordered Performed By: #### L 100.0100, L500.2500 ####[facility] [address] [place], [address] GLU Normal 70-99 [facility] Comment on above: Result Comment: Canc elled via OM: MD Ordered Performed By: #### L 100.0100, L500.2500 ####[facility] [address] [place], [address] Potassium Normal 3.3-5.1 [facility] Comment on above: Result Comment: Canc elled via OM: MD Ordered Performed By: #### L 100.0100, L500.2500 ####[facility] [address] [place], [address] Basic Metabolic Profile (BMP) Normal 133-145 [facility] Comment on above: Result Comment: Canc elled via OM: MD Ordered Performed By: #### L 100.0100, L500.2500 ####[facility] [address] [place], [address] Basophil percentageOrdered B y: Ajith Quiñones on 12-06-2024 Basophils/100 WBC (Bld) 0.6 % 0-1 [facility] CBC W/Diff, Automatedon Absolute Lymph 0.89 X10 3/uL Normal 0.83-4.51 [facility] Comment on above: Performed By: #### L 501.5200, L100.0100, L501.2300, L500.2500 ####[facility] [address] [place], [address] Absolute Neut 1.7 X10 3/uL Low 2.0-7.7 [facility] Comment on above: Performed By: #### L 501.5200, L100.0100, L501.2300, L500.2500 ####[facility] [address] [place], [address] Basophils/100 WBC (Bld) 0.6 % Normal 0-1 [facility] Comment on above: Performed By: #### L 501.5200, L100.0100, L501.2300, L500.2500 ####[facility] [address] [place], [address] Eosinophils/100 WBC (Bld) 2.7 % Normal 0-5 [facility] Comment on above: Performed By: #### L 501.5200, L100.0100, L501.2300, L500.2500 ####[facility] [address] [place], [address] Erythrocyte distribution width (RBC) [Ratio] 14.2 % Normal 11.6-14.6 [facility] Comment on above: Performed By: #### L 501.5200, L100.0100, L501.2300, L500.2500 ####[facility] [address] [place], [address] Hematocrit (Bld) [Volume fraction] 37.2 % Normal 37-47 [facility] Comment on above: Performed By: #### L 501.5200, L100.0100, L501.2300, L500.2500 ####[facility] [address] [place], [address] Hemoglobin (Bld) [Mass/Vol] 12.8 g/dL Normal 12.0-15.0 [facility] Comment on above: Performed By: #### L 501.5200, L100.0100, L501.2300, L500.2500 ####[facility] [address] [place], [address] IG% 0.600 Normal 0.0-0.9 [facility] Comment on above: Result Comment: IG% - Immature Granulocytes (promyelocytes, myelocytes andmetamyelocytes) > 1% indicates that a LEFT SHIFT is Present. Performed By: #### L 501.5200, L100.0100, L501.2300, L500.2500 ####[facility] [address] [place], [address] Lymphocytes/100 WBC (Bld) 26.8 % Normal 19-41 [facility] Comment on above: Performed By: #### L 501.5200, L100.0100, L501.2300, L500.2500 ####[facility] [address] [place], [address] MCH (RBC) [Entitic mass] 33.6 pg High 27.0-32.0 [facility] Comment on above: Performed By: #### L 501.5200, L100.0100, L501.2300, L500.2500 ####[facility] [address] [place], [address] MCHC (RBC) [Mass/Vol] 34.4 g/dL Normal 32-36 [facility] Comment on above: Performed By: #### L 501.5200, L100.0100, L501.2300, L500.2500 ####[facility] [address] [place], [address] MCV (RBC) [Entitic vol] 97.6 fL Normal 81-99 [facility] Comment on above: Performed By: #### L 501.5200, L100.0100, L501.2300, L500.2500 ####[facility] [address] [place], [address] Monocytes/100 WBC (Bld) 19.0 % High 0-10 [facility] Comment on above: Performed By: #### L 501.5200, L100.0100, L501.2300, L500.2500 ####[facility] [address] [place], [address] Neutrophils/100 WBC (Bld) 50.3 % Normal 47-70 [facility] Comment on above: Performed By: #### L 501.5200, L100.0100, L501.2300, L500.2500 ####[facility] [address] [place], [address] Nucleated RBC (Bld) [#/Vol] 0 10*3/uL Normal 0-5 [facility] Comment on above: Performed By: #### L 501.5200, L100.0100, L501.2300, L500.2500 ####[facility] [address] [place], [address] Platelet mean volume (Bld) [Entitic vol] 12.0 fL Normal 6.2-12.0 [facility] Comment on above: Performed By: #### L 501.5200, L100.0100, L501.2300, L500.2500 ####[facility] [address] [place], [address] Platelets (Bld) [#/Vol] 79 10*3/uL Low 150-450 [facility] Comment on above: Performed By: #### L 501.5200, L100.0100, L501.2300, L500.2500 ####[facility] [address] [place], [address] RBC (Bld) [#/Vol] 3.81 10*6/uL Low 4.2-5.4 [facility] Comment on above: Performed By: #### L 501.5200, L100.0100, L501.2300, L500.2500 ####[facility] [address] [place], [address] RDW SD 51.0 fl High 35.1-43.9 [facility] Comment on above: Performed By: #### L 501.5200, L100.0100, L501.2300, L500.2500 ####[facility] [address] [place], [address] WBC (Bld) [#/Vol] 3.3 10*3/uL Low 4.4-11.0 [facility] Comment on above: Performed By: #### L 501.5200, L100.0100, L501.2300, L500.2500 ####[facility] [address] [place], [address] Absolute Neut Normal 2.0-7.7 [facility] Comment on above: Result Comment: Canc elled via OM: MD Ordered Performed By: #### L 100.0100, L500.2500 ####[facility] [address] [place], [address] HCT Normal 37-47 [facility] Comment on above: Result Comment: Canc elled via OM: MD Ordered Performed By: #### L 100.0100, L500.2500 ####[facility] [address] [place], [address] HGB Normal 12.0-15.0 [facility] Comment on above: Result Comment: Canc elled via OM: MD Ordered Performed By: #### L 100.0100, L500.2500 ####[facility] [address] [place], [address] MCH Normal 27.0-32.0 [facility] Comment on above: Result Comment: Canc elled via OM: MD Ordered Performed By: #### L 100.0100, L500.2500 ####[facility] [address] [place], [address] MCHC Normal 32-36 [facility] Comment on above: Result Comment: Canc elled via OM: MD Ordered Performed By: #### L 100.0100, L500.2500 ####[facility] [address] [place], [address] MCV Normal 81-99 [facility] Comment on above: Result Comment: Canc elled via OM: MD Ordered Performed By: #### L 100.0100, L500.2500 ####[facility] [address] [place], [address] NEUT% Normal 47-70 [facility] Comment on above: Result Comment: Canc elled via OM: MD Ordered Performed By: #### L 100.0100, L500.2500 ####[facility] [address] [place], [address] PLT Normal 150-450 [facility] Comment on above: Result Comment: Canc elled via OM: MD Ordered Performed By: #### L 100.0100, L500.2500 ####[facility] [address] [place], [address] RBC Normal 4.2-5.4 [facility] Comment on above: Result Comment: Canc elled via OM: MD Ordered Performed By: #### L 100.0100, L500.2500 ####[facility] [address] [place], [address] RDW CV Normal 11.6-14.6 [facility] Comment on above: Result Comment: Canc elled via OM: MD Ordered Performed By: #### L 100.0100, L500.2500 ####[facility] [address] [place], [address] RDW SD Normal 35.1-43.9 [facility] Comment on above: Result Comment: Canc elled via OM: MD Ordered Performed By: #### L 100.0100, L500.2500 ####[facility] [address] [place], [address] WBC Normal 4.4-11.0 [facility] Comment on above: Result Comment: Canc elled via OM: MD Ordered Performed By: #### L 100.0100, L500.2500 ####[facility] [address] [place], [address] Carbon dioxide, total [Moles /volume] in Central venous bloodOrdered By: Ajith Quiñones on 12-06-2024 CO2 [Moles/Vol] 17.8 mmol/L Low 21.0-32.0 [facility] Chloride assayOrdered By: Suraj Quiñones on 12-06-2024 Chloride [Moles/Vol] 104 mmol/L 98-108 [facility] Electrocardiogram reportOrde red By: Elias Arevalo on 12-06-2024 EKG study [facility] [address] [place] [address] 12 Lead EKG 12/02/24 1341 MR#: [id number] Acct: [id number] Name: ROBERTO FERGUSON Rep #:[id number] : 1935 89 From: Elias Arevalo [...] COMPARISON REQUIRED DATA IS UNCONFIRMED Confirmed by IRINA LOPES, ELIAS ([id number]), scientific publications editor CHERELLE BUENROSTRO ([id number]) on 12/06/2024 7:33:22 AM Referred By: Confirmed By: ELIAS AREVALO MD 12/06/2433 Date _ Elias Arevalo MD CC: Dr. Linda Mao MD; Dr. Ajith Quiñones MD; Dr. Marga Butcher MD ~ Signed [facility] Work Phone: Eosinophil percentageOrdered By: Ajith Quiñones on 12-06-2024 Eosinophils/100 WBC (Bld) 2.7 % 0-5 [facility] Erythrocyte distribution wid th ratioOrdered By: Ajith Quiñones on 12-06-2024 Erythrocyte distribution width (RBC) [Ratio] 14.2 % 11.6-14.6 [facility] Erythrocyte distribution wid th standard deviationOrdered By: Ajith Quiñones on 12-06-2024 Erythrocyte distribution width (RBC) [Ratio] 51.0 fl High 35.1-43.9 [facility] Glomerular filtration rate ( GFR) estimation/1.73 sq m using serum, plasma, or whole bOrdered By: Ajith Quiñones on 12-06-2024 GFR/1.73 sq M.predicted among non-blacks MDRD (S/P/Bld) [Vol rate/Area] 46 mL/min/{1.73_m2} Low >60 [facility] Comment on above: mL/min/1.73m2 CKD-EP I Creatinine Equation (2020) Hematocrit Auto (Bld) [Volum e fraction]Ordered By: Ajith Quiñones on 12-06-2024 Hematocrit (Bld) [Volume fraction] 37.2 % 37-47 [facility] Hemoglobin measurementOrdere d By: Ajith Quiñones on 12-06-2024 Hemoglobin (Bld) [Mass/Vol] 12.8 g/dL 12.0-15.0 [facility] Immature granulocytes/100 WB C Auto (Bld)Ordered By: Ajith Quiñones on 12-06-2024 Immature granulocytes/100 WBC (Bld) 0.600 % 0.0-0.9 [facility] Comment on above: IG% - Immature Granu locytes (promyelocytes, myelocytes and metamyelocytes) > 1% indicates that a LEFT SHIFT is Present. MCV (mean corpuscular volume ) determinationOrdered By: Ajith Quiñones on 12-06-2024 MCV (RBC) [Entitic vol] 97.6 fL 81-99 [facility] Magnesiumon 12-06-2024 Magnesium [Mass/Vol] 2.2 mg/dL Normal 1.5-2.2 [facility] Comment on above: Performed By: #### L 501.5200, L100.0100, L501.2300, L500.2500 ####[facility] [address] [place], [place], [address] Magnesium measurement (mass/ volume)Ordered By: Ajith Quiñones on 12-06-2024 Magnesium (Unsp spec) [Mass/Vol] 2.2 mg/dL 1.5-2.2 [facility] Mean corpuscular hemoglobin (MCH) determinationOrdered By: Ajith Quiñones on 12-06-2024 MCH (RBC) [Entitic mass] 33.6 pg High 27.0-32.0 [facility] Mean corpuscular hemoglobin concentration (MCHC) determinationOrdered By: Ajith Quiñones on 12-06-2024 MCHC (RBC) [Mass/Vol] 34.4 g/dL 32-36 [facility] Mean platelet volume determi nationOrdered By: Ajith Quiñones on 12-06-2024 Platelet mean volume (Bld) [Entitic vol] 12.0 fL 6.2-12.0 [facility] Monocyte percentageOrdered B y: Ajith Quiñones on 12-06-2024 Monocytes/100 WBC (Bld) 19.0 % High 0-10 [facility] Neutrophil percentageOrdered By: Ajith Quiñones on 12-06-2024 Neutrophils/100 WBC (Bld) 50.3 % 47-70 [facility] Nucleated red blood cell per centageOrdered By: Ajith Quiñones on 12-06-2024 Nucleated RBC/100 WBC (Bld) [Ratio] 0 % 0-5 [facility] Phosphoruson 12-06-2024 Phosphate [Mass/Vol] 3.9 mg/dL Normal 2.7-4.5 [facility] Comment on above: Performed By: #### L 501.5200, L100.0100, L501.2300, L500.2500 ####[facility] [address] [place], [address] Platelet countOrdered By: Suraj Quiñones on 12-06-2024 Platelets (Bld) [#/Vol] 79 10*3/uL Low 150-450 [facility] Potassium measurement (mass/ volume)Ordered By: Ajith Quiñones on 12-06-2024 Potassium (Unsp spec) [Mass/Vol] 4.2 mmol/L 3.3-5.1 [facility] Comment on above: Hemolysis present, R esults could be affected. RBC Auto (Bld) [#/Vol]Ordere d By: Ajith Quiñones on 12-06-2024 RBC (Bld) [#/Vol] 3.81 10*6/uL Low 4.2-5.4 [facility] Serum creatinine measurement (mass/volume)Ordered By: Ajith Quiñones on 12-06-2024 Creatinine [Mass/Vol] 1.14 mg/dL 0.70-1.20 [facility] Serum glucose measurement (m ass/volume)Ordered By: Ajith Quiñones on 12-06-2024 Glucose [Mass/Vol] 83 mg/dL 70-99 [facility] Serum or plasma calcium criss urement (mass/volume)Ordered By: Ajith Quiñones on 12-06-2024 Calcium [Mass/Vol] 8.4 mg/dL 7.6-11.0 [facility] Serum or plasma urea nitroge n measurement (mass/volume)Ordered By: Ajith Quiñones on 12-06-2024 Urea nitrogen [Mass/Vol] 28 mg/dL High 4-19 [facility] Sodium levelOrdered By: Emil Quiñones on 12-06-2024 Sodium [Moles/Vol] 135 mmol/L 133-145 [facility] White blood cell (WBC) count Ordered By: Ajith Quiñones on 12-06-2024 WBC (Bld) [#/Vol] 3.3 10*3/uL Low 4.4-11.0 [facility] Basic Metabolic Profile (BMP )on 12-05-2024 BUN/CRE 21.1 RATIO High 10-20 [facility] Comment on above: Performed By: #### L 500.2500, L100.0500 ####[facility] [address] [place], [address] Calcium [Mass/Vol] 8.3 mg/dL Normal 7.6-11.0 [facility] Comment on above: Performed By: #### L 500.2500, L100.0500 ####[facility] [address] [place], [address] Chloride [Moles/Vol] 103 mmol/L Normal 98-108 [facility] Comment on above: Performed By: #### L 500.2500, L100.0500 ####[facility] [address] [place], [address] CO2 [Moles/Vol] 20.5 mmol/L Low 21.0-32.0 [facility] Comment on above: Performed By: #### L 500.2500, L100.0500 ####[facility] [address] [place], [address] Creatinine [Mass/Vol] 1.13 mg/dL Normal 0.70-1.20 [facility] Comment on above: Performed By: #### L 500.2500, L100.0500 ####[facility] [address] [place], [address] ECRCL 27.55 ml/min Low 50-250 [facility] Comment on above: Performed By: #### L 500.2500, L100.0500 ####[facility] [address] [place], [address] GAP 11 Normal 5-15 [facility] Comment on above: Performed By: #### L 500.2500, L100.0500 ####[facility] [address] [place], [address] GFR/1.73 sq M.predicted among non-blacks MDRD (S/P/Bld) [Vol rate/Area] 47 mL/min/{1.73_m2} Low >60 [facility] Comment on above: Result Comment: mL/m in/1.73m2 CKD-EPI Creatinine Equation (2020) Performed By: #### L 500.2500, L100.0500 ####[facility] [address] [place], [address] Glucose [Mass/Vol] 81 mg/dL Normal 70-99 [facility] Comment on above: Performed By: #### L 500.2500, L100.0500 ####[facility] [address] [place], [address] Potassium [Moles/Vol] 4.0 mmol/L Normal 3.3-5.1 [facility] Comment on above: Result Comment: Hemo lysis present, Results??could be affected.?? Performed By: #### L 500.2500, L100.0500 ####[facility] [address] [place], [address] Sodium [Moles/Vol] 134 mmol/L Normal 133-145 [facility] Comment on above: Performed By: #### L 500.2500, L100.0500 ####[facility] [address] [place], [address] Urea nitrogen [Mass/Vol] 24 mg/dL High 4-19 [facility] Comment on above: Performed By: #### L 500.2500, L100.0500 ####[facility] [address] [place], [address] BUN Normal 4-19 [facility] Comment on above: Result Comment: Price frausto via OM: MD Ordered Performed By: #### L 100.0100, L500.2500 ####[facility] [address] [place], [address] BUN/CRE Normal 10-20 [facility] Comment on above: Result Comment: Canc elled via OM: MD Ordered Performed By: #### L 100.0100, L500.2500 ####[facility] [address] [place], [address] Calcium Normal 7.6-11.0 [facility] Comment on above: Result Comment: Canc elled via OM: MD Ordered Performed By: #### L 100.0100, L500.2500 ####[facility] [address] [place], [address] CL Normal 98-108 [facility] Comment on above: Result Comment: Canc elled via OM: MD Ordered Performed By: #### L 100.0100, L500.2500 ####[facility] [address] [place], [address] CO2 Normal 21.0-32.0 [facility] Comment on above: Result Comment: Canc elled via OM: MD Ordered Performed By: #### L 100.0100, L500.2500 ####[facility] [address] [place], [address] CREAT,SERUM Normal 0.70-1.20 [facility] Comment on above: Result Comment: Canc elled via OM: MD Ordered Performed By: #### L 100.0100, L500.2500 ####[facility] [address] [place], [address] eGFR Normal >60 [facility] Comment on above: Result Comment: Canc elled via OM: MD Ordered Performed By: #### L 100.0100, L500.2500 ####[facility] [address] [place], [address] GAP Normal 5-15 [facility] Comment on above: Result Comment: Canc elled via OM: MD Ordered Performed By: #### L 100.0100, L500.2500 ####[facility] [address] [place], [address] GLU Normal 70-99 [facility] Comment on above: Result Comment: Canc elled via OM: MD Ordered Performed By: #### L 100.0100, L500.2500 ####[facility] [address] [place], [address] Potassium Normal 3.3-5.1 [facility] Comment on above: Result Comment: Canc elled via OM: MD Ordered Performed By: #### L 100.0100, L500.2500 ####[facility] [address] [place], [address] Basic Metabolic Profile (BMP) Normal 133-145 [facility] Comment on above: Result Comment: Canc elled via OM: MD Ordered Performed By: #### L 100.0100, L500.2500 ####[facility] [address] [place], [address] CBC W/Diff, Automatedon 08-0 -2024 Absolute Neut Normal 2.0-7.7 [facility] Comment on above: Result Comment: Canc elled via OM: MD Ordered Performed By: #### L 100.0100, L500.2500 ####[facility] [address] [place], [address] HCT Normal 37-47 [facility] Comment on above: Result Comment: Canc elled via OM: MD Ordered Performed By: #### L 100.0100, L500.2500 ####[facility] [address] [place], [address] HGB Normal 12.0-15.0 [facility] Comment on above: Result Comment: Canc elled via OM: MD Ordered Performed By: #### L 100.0100, L500.2500 ####[facility] [address] [place], [address] MCH Normal 27.0-32.0 [facility] Comment on above: Result Comment: Canc elled via OM: MD Ordered Performed By: #### L 100.0100, L500.2500 ####[facility] [address] [place], [address] MCHC Normal 32-36 [facility] Comment on above: Result Comment: Canc elled via OM: MD Ordered Performed By: #### L 100.0100, L500.2500 ####[facility] [address] [place], [address] MCV Normal 81-99 [facility] Comment on above: Result Comment: Canc elled via OM: MD Ordered Performed By: #### L 100.0100, L500.2500 ####[facility] [address] [place], [address] NEUT% Normal 47-70 [facility] Comment on above: Result Comment: Canc elled via OM: MD Ordered Performed By: #### L 100.0100, L500.2500 ####[facility] [address] [place], [address] PLT Normal 150-450 [facility] Comment on above: Result Comment: Canc elled via OM: MD Ordered Performed By: #### L 100.0100, L500.2500 ####[facility] [address] [place], [address] RBC Normal 4.2-5.4 [facility] Comment on above: Result Comment: Canc elled via OM: MD Ordered Performed By: #### L 100.0100, L500.2500 ####[facility] [address] [place], [address] RDW CV Normal 11.6-14.6 [facility] Comment on above: Result Comment: Canc elled via OM: MD Ordered Performed By: #### L 100.0100, L500.2500 ####[facility] [address] [place], [address] RDW SD Normal 35.1-43.9 [facility] Comment on above: Result Comment: Canc elled via OM: MD Ordered Performed By: #### L 100.0100, L500.2500 ####[facility] [address] [place], [address] WBC Normal 4.4-11.0 [facility] Comment on above: Result Comment: Canc elled via OM: MD Ordered Performed By: #### L 100.0100, L500.2500 ####[facility] [address] [place], [address] CBC-Complete Blood Cnt No ffon 12-05-2024 Erythrocyte distribution width (RBC) [Ratio] 14.3 % Normal 11.6-14.6 [facility] Comment on above: Performed By: #### L 500.2500, L100.0500 ####[facility] [address] [place], [address] Hematocrit (Bld) [Volume fraction] 38.2 % Normal 37-47 [facility] Comment on above: Performed By: #### L 500.2500, L100.0500 ####[facility] [address] [place], [address] Hemoglobin (Bld) [Mass/Vol] 13.2 g/dL Normal 12.0-15.0 [facility] Comment on above: Performed By: #### L 500.2500, L100.0500 ####[facility] [address] [place], [address] MCH (RBC) [Entitic mass] 33.5 pg High 27.0-32.0 [facility] Comment on above: Performed By: #### L 500.2500, L100.0500 ####[facility] [address] [place], [address] MCHC (RBC) [Mass/Vol] 34.6 g/dL Normal 32-36 [facility] Comment on above: Performed By: #### L 500.2500, L100.0500 ####[facility] [address] [place], [address] MCV (RBC) [Entitic vol] 97.0 fL Normal 81-99 [facility] Comment on above: Performed By: #### L 500.2500, L100.0500 ####[facility] [address] [place], [address] Platelet mean volume (Bld) [Entitic vol] 12.1 fL High 6.2-12.0 [facility] Comment on above: Performed By: #### L 500.2500, L100.0500 ####[facility] [address] [place], [address] Platelets (Bld) [#/Vol] 87 10*3/uL Low 150-450 [facility] Comment on above: Performed By: #### L 500.2500, L100.0500 ####[facility] [address] [place], [address] RBC (Bld) [#/Vol] 3.94 10*6/uL Low 4.2-5.4 [facility] Comment on above: Performed By: #### L 500.2500, L100.0500 ####[facility] [address] [place], [address] RDW SD 50.7 fl High 35.1-43.9 [facility] Comment on above: Performed By: #### L 500.2500, L100.0500 ####[facility] [address] [place], [address] WBC (Bld) [#/Vol] 3.1 10*3/uL Low 4.4-11.0 [facility] Comment on above: Performed By: #### L 500.2500, L100.0500 ####[facility] [address] [place], [place], [id number] Magnetic resonance imaging r eportOrdered By: Susana Amato on 12-05-2024 Study report [facility] Imaging Services [address] [place], [place] [address] Spine Cervical (Routine) MR#: [id number] Acct: [id number] Name: ROBERTO FERGUSON Rep #: [id number] : 1935 F 89 From: Indra Amato MD PCP: Dr. Linda Mao MD Status: ADM IN Study:Spine Cervical (Routine) Date of Exam: 12/05/24 Exam# [id number] Ordering Dr: Sean Turner DO PROCEDURE: SPINE [...] chest x-ray or CT chest. Reading Location: [facility] CC: Dr. Sean Thornton DO; Dr. Linda Mao MD ~ Crop Quantitative Geneticist: Signed [facility] Spine Cervical (Routine)on 0 12-05-2024 Spine Cervical (Routine) Normal [facility] Absolute lymphocyte countOrd ered By: Marga Butcher on 12-04-2024 Lymphocytes Auto (Unsp spec) [#/Vol] 1.16 10*3/uL 0.83-4.51 [facility] Absolute neutrophil countOrd ered By: Marga Butcher on 12-04-2024 Neutrophils (Bld) [#/Vol] 1.4 10*3/uL Low 2.0-7.7 [facility] Anion gap in Serum or Plasma Ordered By: Marga Butcher on 12-04-2024 Anion gap [Moles/Vol] 12 mmol/L 5-15 [facility] Automated lymphocyte count a s percentage of total leukocytesOrdered By: Marga Butcher on 12-04-2024 Lymphocytes/100 WBC Auto (Unsp spec) 35.9 % 19-41 [facility] BUN/creatinine ratioOrdered By: Marga Butcher on 12-04-2024 Urea nitrogen/Creatinine [Mass ratio] 19.9 mg/mg 10- [facility] Basic Metabolic Profile (BMP )on 12-04-2024 BUN/CRE 19.9 RATIO Normal - [facility] Comment on above: Performed By: #### L 500.2500, L100.0100 ####[facility] [address] [place], [address] Calcium [Mass/Vol] 8.3 mg/dL Normal 7.6-11.0 [facility] Comment on above: Performed By: #### L 500.2500, L100.0100 ####[facility] [address] [place], [address] Chloride [Moles/Vol] 102 mmol/L Normal 98-108 [facility] Comment on above: Performed By: #### L 500.2500, L100.0100 ####[facility] [address] [place], [address] CO2 [Moles/Vol] 19.7 mmol/L Low 21.0-32.0 [facility] Comment on above: Performed By: #### L 500.2500, L100.0100 ####[facility] [address] [place], [address] Creatinine [Mass/Vol] 1.14 mg/dL Normal 0.70-1.20 [facility] Comment on above: Performed By: #### L 500.2500, L100.0100 ####[facility] [address] [place], [address] ECRCL 27.31 ml/min Low 50-250 [facility] Comment on above: Performed By: #### L 500.2500, L100.0100 ####[facility] [address] [place], [address] GAP 12 Normal 5-15 [facility] Comment on above: Performed By: #### L 500.2500, L100.0100 ####[facility] [address] [place], [address] GFR/1.73 sq M.predicted among non-blacks MDRD (S/P/Bld) [Vol rate/Area] 46 mL/min/{1.73_m2} Low >60 [facility] Comment on above: Result Comment: mL/m in/1.73m2 CKD-EPI Creatinine Equation (2020) Performed By: #### L 500.2500, L100.0100 ####[facility] [address] [place], [address] Glucose [Mass/Vol] 88 mg/dL Normal 70-99 [facility] Comment on above: Performed By: #### L 500.2500, L100.0100 ####[facility] [address] [place], [address] Potassium [Moles/Vol] 4.2 mmol/L Normal 3.3-5.1 [facility] Comment on above: Performed By: #### L 500.2500, L100.0100 ####[facility] [address] [place], [address] Sodium [Moles/Vol] 133 mmol/L Normal 133-145 [facility] Comment on above: Performed By: #### L 500.2500, L100.0100 ####[facility] [address] [place], [address] Urea nitrogen [Mass/Vol] 23 mg/dL High 4-19 [facility] Comment on above: Performed By: #### L 500.2500, L100.0100 ####[facility] [address] [place], [address] Basophil percentageOrdered B y: Marga Hadley on 12-04-2024 Basophils/100 WBC (Bld) 0.6 % 0-1 [facility] CBC W/Diff, Automatedon Absolute Lymph 1.16 X10 3/uL Normal 0.83-4.51 [facility] Comment on above: Performed By: #### L 500.2500, L100.0100 ####[facility] [address] [place], [address] Absolute Neut 1.4 X10 3/uL Low 2.0-7.7 [facility] Comment on above: Performed By: #### L 500.2500, L100.0100 ####[facility] [address] [place], [address] Basophils/100 WBC (Bld) 0.6 % Normal 0-1 [facility] Comment on above: Performed By: #### L 500.2500, L100.0100 ####[facility] [address] [place], [address] Eosinophils/100 WBC (Bld) 2.8 % Normal 0-5 [facility] Comment on above: Performed By: #### L 500.2500, L100.0100 ####[facility] [address] [place], [address] Erythrocyte distribution width (RBC) [Ratio] 14.4 % Normal 11.6-14.6 [facility] Comment on above: Performed By: #### L 500.2500, L100.0100 ####[facility] [address] [place], [address] Hematocrit (Bld) [Volume fraction] 39.5 % Normal 37-47 [facility] Comment on above: Performed By: #### L 500.2500, L100.0100 ####[facility] [address] [place], [address] Hemoglobin (Bld) [Mass/Vol] 13.6 g/dL Normal 12.0-15.0 [facility] Comment on above: Performed By: #### L 500.2500, L100.0100 ####[facility] [address] [place], [address] IG% 0.300 Normal 0.0-0.9 [facility] Comment on above: Result Comment: IG% - Immature Granulocytes (promyelocytes, myelocytes andmetamyelocytes) > 1% indicates that a LEFT SHIFT is Present. Performed By: #### L 500.2500, L100.0100 ####[facility] [address] [place], [address] Lymphocytes/100 WBC (Bld) 35.9 % Normal 19-41 [facility] Comment on above: Performed By: #### L 500.2500, L100.0100 ####[facility] [address] [place], [address] MCH (RBC) [Entitic mass] 33.3 pg High 27.0-32.0 [facility] Comment on above: Performed By: #### L 500.2500, L100.0100 ####[facility] [address] [place], [address] MCHC (RBC) [Mass/Vol] 34.4 g/dL Normal 32-36 [facility] Comment on above: Performed By: #### L 500.2500, L100.0100 ####[facility] [address] [place], [address] MCV (RBC) [Entitic vol] 96.6 fL Normal 81-99 [facility] Comment on above: Performed By: #### L 500.2500, L100.0100 ####[facility] [address] [place], [address] Monocytes/100 WBC (Bld) 16.1 % High 0-10 [facility] Comment on above: Performed By: #### L 500.2500, L100.0100 ####[facility] [address] [place], [address] Neutrophils/100 WBC (Bld) 44.3 % Low 47-70 [facility] Comment on above: Performed By: #### L 500.2500, L100.0100 ####[facility] [address] [place], [address] Nucleated RBC (Bld) [#/Vol] 0 10*3/uL Normal 0-5 [facility] Comment on above: Performed By: #### L 500.2500, L100.0100 ####[facility] [address] [place], [address] Platelet mean volume (Bld) [Entitic vol] 11.9 fL Normal 6.2-12.0 [facility] Comment on above: Performed By: #### L 500.2500, L100.0100 ####[facility] [address] [place], [address] Platelets (Bld) [#/Vol] 91 10*3/uL Low 150-450 [facility] Comment on above: Performed By: #### L 500.2500, L100.0100 ####[facility] [address] [place], [address] RBC (Bld) [#/Vol] 4.09 10*6/uL Low 4.2-5.4 [facility] Comment on above: Performed By: #### L 500.2500, L100.0100 ####[facility] [address] [place], [address] RDW SD 50.8 fl High 35.1-43.9 [facility] Comment on above: Performed By: #### L 500.2500, L100.0100 ####[facility] [address] [place], [address] WBC (Bld) [#/Vol] 3.2 10*3/uL Low 4.4-11.0 [facility] Comment on above: Performed By: #### L 500.2500, L100.0100 ####[facility] [address] [place], [address] Carbon dioxide, total [Moles /volume] in Central venous bloodOrdered By: Marga Butcher on 12-04-2024 CO2 [Moles/Vol] 19.7 mmol/L Low 21.0-32.0 [facility] Chloride assayOrdered By: Wisam Butcher on 12-04-2024 Chloride [Moles/Vol] 102 mmol/L 98-108 [facility] Duplex ultrasound of carotid artery reportOrdered By: Michael Wright on 12-04-2024 Study report [facility] Cardiovascular Services [address] [place] [address] Carotid Duplex Ultrasound 12/04/24 0834 MR#: [id number] Acct: [id number] Name: ROBERTO FERGUSON Rep #:[id number] : 1935 89 From: Michael Akins Attending Dr: Dr. Sean Thornton, DO Status: ADM IN Ordering Dr: Marga Butcher MD Date: Location: [facility] Sex: F C Admitted: 12/02/24 Reason For [...] the left vertebral artery. Procedure Carotid Duplex 26112. This is a Carotid Duplex examination using B-mode, color flow and specral Doppler. Exam performed portable in patient room. VL/Carotid Duplex Ultrasound Interpretation Summary Mild (<50%) stenosis right extracranial internal carotid. Mild (<50%) stenosis left extracranial internal carotid. Patent and antegrade vertebrals bilaterally. Ordering Physician: Marga Butcher Referring Physician: Linda Mao Performed By: Gianna Londono, BAHMAN, RVT 12/04/241648 Date _ Michael Wright MD CC: Dr. Sean Thornton DO; Dr. Linda Mao MD; Dr. Marga Butcher MD ~ Date Dictated: 12/04/24833 Date Transcribed: 12/04/241648 Crop Quantitative Geneticist: Signed [facility] Work Phone: Electrocardiogram reportOrde red By: Elias Arevalo on 12-04-2024 EKG study [facility] Cardiovascular Services [address] [place] [address] 12 Lead EKG 11/30/24 1121 MR#: [id number] Acct: [id number] Name: ROBERTO FERGUSON Rep #:[id number] : 1935 89 From: Elias Arevalo MD Attending Dr: Dr. Sean Thornton DO Status: ADM IN Ordering Dr: Nikos Lake MD Date: Location: [facility] Sex: F C Admitted: 12/02/24 Test Reason : FALL Blood Pressure : */* mmHG Vent. Rate : 60 BPM Atrial Rate : 60 BPM P-R Int : 196 ms QRS Dur : 160 ms QT Int : 478 ms P-R-T Axes : 61 243 15 degrees QTcB Int : 478 ms AV dual-paced rhythm Abnormal ECG Confirmed by ELIAS AREVALO MD ([id number]), scientific publications editor CHERELLE BUENROSTRO ([id number]) on 12/04/2024 8:18:51 AM Referred By: Confirmed By: ELIAS AREVALO MD 12/04/24817 Date _ Elias Arevalo MD CC: Dr. Nikos Lake MD; Dr. Sean Thornton DO; Dr. Linda Mao MD ~ Signed [facility] Work Phone: Eosinophil percentageOrdered By: Marga Butcher on 12-04-2024 Eosinophils/100 WBC (Bld) 2.8 % 0-5 [facility] Erythrocyte distribution wid th ratioOrdered By: Marga Butcher on 12-04-2024 Erythrocyte distribution width (RBC) [Ratio] 14.4 % 11.6-14.6 [facility] Erythrocyte distribution wid th standard deviationOrdered By: Marag Butcher on 12-04-2024 Erythrocyte distribution width (RBC) [Ratio] 50.8 fl High 35.1-43.9 [facility] Glomerular filtration rate ( GFR) estimation/1.73 sq m using serum, plasma, or whole bOrdered By: Marga Butcher on 12-04-2024 GFR/1.73 sq M.predicted among non-blacks MDRD (S/P/Bld) [Vol rate/Area] 46 mL/min/{1.73_m2} Low >60 [facility] Comment on above: mL/min/1.73m2 CKD-EP I Creatinine Equation (2020) Hematocrit Auto (Bld) [Volum e fraction]Ordered By: Marga Butcher on 12-04-2024 Hematocrit (Bld) [Volume fraction] 39.5 % 37-47 [facility] Hemoglobin measurementOrdere d By: Marga Butcher on 12-04-2024 Hemoglobin (Bld) [Mass/Vol] 13.6 g/dL 12.0-15.0 [facility] Immature granulocytes/100 WB C Auto (Bld)Ordered By: Marga Butcher on 12-04-2024 Immature granulocytes/100 WBC (Bld) 0.300 % 0.0-0.9 [facility] Comment on above: IG% - Immature Granu locytes (promyelocytes, myelocytes and metamyelocytes) > 1% indicates that a LEFT SHIFT is Present. MCV (mean corpuscular volume ) determinationOrdered By: Marga Butcher on 12-04-2024 MCV (RBC) [Entitic vol] 96.6 fL 81-99 [facility] Mean corpuscular hemoglobin (MCH) determinationOrdered By: Marga Butcher on 12-04-2024 MCH (RBC) [Entitic mass] 33.3 pg High 27.0-32.0 [facility] Mean corpuscular hemoglobin concentration (MCHC) determinationOrdered By: Marga Butcher on 12-04-2024 MCHC (RBC) [Mass/Vol] 34.4 g/dL 32-36 [facility] Mean platelet volume determi nationOrdered By: Marga Butcher on 12-04-2024 Platelet mean volume (Bld) [Entitic vol] 11.9 fL 6.2-12.0 [facility] Monocyte percentageOrdered B y: Marga Butcher on 12-04-2024 Monocytes/100 WBC (Bld) 16.1 % High 0-10 [facility] Neutrophil percentageOrdered By: Marga Butcher on 12-04-2024 Neutrophils/100 WBC (Bld) 44.3 % Low 47-70 [facility] Nucleated red blood cell per centageOrdered By: Marga Butcher on 12-04-2024 Nucleated RBC/100 WBC (Bld) [Ratio] 0 % 0-5 [facility] Pacemaker Checkon 12-04-2024 Pacemaker Check Normal [facility] Platelet countOrdered By: Wisam Butcher on 12-04-2024 Platelets (Bld) [#/Vol] 91 10*3/uL Low 150-450 [facility] Potassium measurement (mass/ volume)Ordered By: Marga Butcher on 12-04-2024 Potassium (Unsp spec) [Mass/Vol] 4.2 mmol/L 3.3-5.1 [facility] RBC Auto (Bld) [#/Vol]Ordere d By: Marga Butcher on 12-04-2024 RBC (Bld) [#/Vol] 4.09 10*6/uL Low 4.2-5.4 [facility] Serum creatinine measurement (mass/volume)Ordered By: Marga Butcher on 12-04-2024 Creatinine [Mass/Vol] 1.14 mg/dL 0.70-1.20 [facility] Serum glucose measurement (m ass/volume)Ordered By: Marga Butcher on 12-04-2024 Glucose [Mass/Vol] 88 mg/dL 70-99 [facility] [facility] Serum or plasma calcium criss urement (mass/volume)Ordered By: Marga Butcher on 12-04-2024 Calcium [Mass/Vol] 8.3 mg/dL 7.6-11.0 [facility] Serum or plasma urea nitroge n measurement (mass/volume)Ordered By: Marga Butcher on 12-04-2024 Urea nitrogen [Mass/Vol] 23 mg/dL High 4-19 [facility] Sodium levelOrdered By: Usman Butcher on 12-04-2024 Sodium [Moles/Vol] 133 mmol/L 133-145 [facility] White blood cell (WBC) count Ordered By: Marga Butcher on 12-04-2024 WBC (Bld) [#/Vol] 3.2 10*3/uL Low 4.4-11.0 [facility] Basic Metabolic Profile (BMP )on 12-03-2024 BUN/CRE 20.1 RATIO High 10-20 [facility] Comment on above: Performed By: #### L 500.2500, L100.0100, L501.5200 ####[facility] [address] [place], [address] Calcium [Mass/Vol] 8.2 mg/dL Normal 7.6-11.0 [facility] Comment on above: Performed By: #### L 500.2500, L100.0100, L501.5200 ####[facility] [address] [place], [address] Chloride [Moles/Vol] 106 mmol/L Normal 98-108 [facility] Comment on above: Performed By: #### L 500.2500, L100.0100, L501.5200 ####[facility] [address] [place], [address] CO2 [Moles/Vol] 21.0 mmol/L Normal 21.0-32.0 [facility] Comment on above: Performed By: #### L 500.2500, L100.0100, L501.5200 ####[facility] [address] [place], [address] Creatinine [Mass/Vol] 0.99 mg/dL Normal 0.70-1.20 [facility] Comment on above: Performed By: #### L 500.2500, L100.0100, L501.5200 ####[facility] [address] [place], [address] ECRCL 31.45 ml/min Low 50-250 [facility] Comment on above: Performed By: #### L 500.2500, L100.0100, L501.5200 ####[facility] [address] [place], [address] GAP 10 Normal 5-15 [facility] Comment on above: Performed By: #### L 500.2500, L100.0100, L501.5200 ####[facility] [address] [place], [address] GFR/1.73 sq M.predicted among non-blacks MDRD (S/P/Bld) [Vol rate/Area] 55 mL/min/{1.73_m2} Low >60 [facility] Comment on above: Result Comment: mL/m in/1.73m2 CKD-EPI Creatinine Equation (2020) Performed By: #### L 500.2500, L100.0100, L501.5200 ####[facility] [address] [place], [address] Glucose [Mass/Vol] 101 mg/dL High 70-99 [facility] Comment on above: Performed By: #### L 500.2500, L100.0100, L501.5200 ####[facility] [address] [place], [address] Potassium [Moles/Vol] 4.0 mmol/L Normal 3.3-5.1 [facility] Comment on above: Performed By: #### L 500.2500, L100.0100, L501.5200 ####[facility] [address] [place], [address] Sodium [Moles/Vol] 137 mmol/L Normal 133-145 [facility] Comment on above: Performed By: #### L 500.2500, L100.0100, L501.5200 ####[facility] [address] [place], [address] Urea nitrogen [Mass/Vol] 20 mg/dL High 4-19 [facility] Comment on above: Performed By: #### L 500.2500, L100.0100, L501.5200 ####[facility] [address] [place], [address] CBC W/Diff, Automatedon 08-0 PLT EST MOD DEC Normal ADEQ [facility] Comment on above: Performed By: #### L 500.2500, L100.0100, L501.5200 ####[facility] [address] [place], [address] Carotid Duplex Ultrasoundon 12-03-2024 Carotid Duplex Ultrasound Normal [facility] Consultation - Cardiologyon 12-03-2024 Consultation - Cardiology Normal [facility] Magnesiumon 12-03-2024 Magnesium [Mass/Vol] 2.3 mg/dL High 1.5-2.2 [facility] Comment on above: Performed By: #### L 500.2500, L100.0100, L501.5200 ####[facility] [address] [place], [address] Magnesium measurement (mass/ volume)Ordered By: Marga Butcher on 12-03-2024 Magnesium (Unsp spec) [Mass/Vol] 2.3 mg/dL High 1.5-2.2 [facility] Platelet estimateOrdered By: Marga Butcher on 12-03-2024 Platelets LM Ql (Bld) MOD DEC ADEQ [facility] Urine Cultureon 12-03-2024 URC #1, 2 Below infectio n level. Presumptive E. coli Keymar Count 1000-10,000 Mixed Gram Positive Organisms Mixed Gram Positive Organisms MIXC Mixed contaminants. Submit a new specimen if indicated. Normal [facility] Comment on above: Performed By: #### M 100.2200, L400.0001 ####[facility] [address] [place], [address] 12 Lead EKGon 12-02-2024 12 Lead EKG Normal [facility] Basic Metabolic Profile (BMP )on 12-02-2024 BUN/CRE 18.7 RATIO Normal 10-20 [facility] Comment on above: Performed By: #### L 100.0100, L500.2500 ####[facility] [address] [place], [address] Calcium [Mass/Vol] 8.0 mg/dL Normal 7.6-11.0 [facility] Comment on above: Performed By: #### L 100.0100, L500.2500 ####[facility] [address] [place], [address] Chloride [Moles/Vol] 107 mmol/L Normal 98-108 [facility] Comment on above: Performed By: #### L 100.0100, L500.2500 ####[facility] [address] [place], [address] CO2 [Moles/Vol] 22.1 mmol/L Normal 21.0-32.0 [facility] Comment on above: Performed By: #### L 100.0100, L500.2500 ####[facility] [address] [place], [address] Creatinine [Mass/Vol] 1.08 mg/dL Normal 0.70-1.20 [facility] Comment on above: Performed By: #### L 100.0100, L500.2500 ####[facility] [address] [place], [address] ECRCL 28.83 ml/min Low 50-250 [facility] Comment on above: Performed By: #### L 100.0100, L500.2500 ####[facility] [address] [place], [address] GAP 10 Normal 5-15 [facility] Comment on above: Performed By: #### L 100.0100, L500.2500 ####[facility] [address] [place], [address] GFR/1.73 sq M.predicted among non-blacks MDRD (S/P/Bld) [Vol rate/Area] 49 mL/min/{1.73_m2} Low >60 [facility] Comment on above: Result Comment: mL/m in/1.73m2 CKD-EPI Creatinine Equation (2020) Performed By: #### L 100.0100, L500.2500 ####[facility] [address] [place], [address] Glucose [Mass/Vol] 91 mg/dL Normal 70-99 [facility] Comment on above: Performed By: #### L 100.0100, L500.2500 ####[facility] [address] [place], [address] Potassium [Moles/Vol] 4.3 mmol/L Normal 3.3-5.1 [facility] Comment on above: Performed By: #### L 100.0100, L500.2500 ####[facility] [address] [place], [address] Sodium [Moles/Vol] 139 mmol/L Normal 133-145 [facility] Comment on above: Performed By: #### L 100.0100, L500.2500 ####[facility] [address] [place], [address] Urea nitrogen [Mass/Vol] 20 mg/dL High 4-19 [facility] Comment on above: Performed By: #### L 100.0100, L500.2500 ####[facility] [address] [place], [address] CBC W/Diff, Automatedon 08-0 2-5 Absolute Lymph 1.07 X10 3/uL Normal 0.83-4.51 [facility] Comment on above: Performed By: #### L 100.0100, L500.2500 ####[facility] [address] [place], [address] Absolute Neut 1.0 X10 3/uL Low 2.0-7.7 [facility] Comment on above: Performed By: #### L 100.0100, L500.2500 ####[facility] [address] [place], [address] Basophils/100 WBC (Bld) 0.8 % Normal 0-1 [facility] Comment on above: Performed By: #### L 100.0100, L500.2500 ####[facility] [address] [place], [address] Eosinophils/100 WBC (Bld) 2.3 % Normal 0-5 [facility] Comment on above: Performed By: #### L 100.0100, L500.2500 ####[facility] [address] [place], [address] Erythrocyte distribution width (RBC) [Ratio] 14.5 % Normal 11.6-14.6 [facility] Comment on above: Performed By: #### L 100.0100, L500.2500 ####[facility] [address] [place], [address] Hematocrit (Bld) [Volume fraction] 40.1 % Normal 37-47 [facility] Comment on above: Performed By: #### L 100.0100, L500.2500 ####[facility] [address] [place], [address] Hemoglobin (Bld) [Mass/Vol] 13.8 g/dL Normal 12.0-15.0 [facility] Comment on above: Performed By: #### L 100.0100, L500.2500 ####[facility] [address] [place], [address] IG% 0.000 Normal 0.0-0.9 [facility] Comment on above: Result Comment: IG% - Immature Granulocytes (promyelocytes, myelocytes andmetamyelocytes) > 1% indicates that a LEFT SHIFT is Present. Performed By: #### L 100.0100, L500.2500 ####[facility] [address] [place], [address] Lymphocytes/100 WBC (Bld) 40.7 % Normal 19-41 [facility] Comment on above: Performed By: #### L 100.0100, L500.2500 ####[facility] [address] [place], [address] MCH (RBC) [Entitic mass] 33.3 pg High 27.0-32.0 [facility] Comment on above: Performed By: #### L 100.0100, L500.2500 ####[facility] [address] [place], [address] MCHC (RBC) [Mass/Vol] 34.4 g/dL Normal 32-36 [facility] Comment on above: Performed By: #### L 100.0100, L500.2500 ####[facility] [address] [place], [address] MCV (RBC) [Entitic vol] 96.6 fL Normal 81-99 [facility] Comment on above: Performed By: #### L 100.0100, L500.2500 ####[facility] [address] [place], [address] Monocytes/100 WBC (Bld) 17.1 % High 0-10 [facility] Comment on above: Performed By: #### L 100.0100, L500.2500 ####[facility] [address] [place], [address] Neutrophils/100 WBC (Bld) 39.1 % Low 47-70 [facility] Comment on above: Performed By: #### L 100.0100, L500.2500 ####[facility] [address] [place], [address] Nucleated RBC (Bld) [#/Vol] 0 10*3/uL Normal 0-5 [facility] Comment on above: Performed By: #### L 100.0100, L500.2500 ####[facility] [address] [place], [address] Platelet mean volume (Bld) [Entitic vol] 11.5 fL Normal 6.2-12.0 [facility] Comment on above: Performed By: #### L 100.0100, L500.2500 ####[facility] [address] [place], [address] Platelets (Bld) [#/Vol] 111 10*3/uL Low 150-450 [facility] Comment on above: Performed By: #### L 100.0100, L500.2500 ####[facility] [address] [place], [address] RBC (Bld) [#/Vol] 4.15 10*6/uL Low 4.2-5.4 [facility] Comment on above: Performed By: #### L 100.0100, L500.2500 ####[facility] [address] [place], [address] RDW SD 51.0 fl High 35.1-43.9 [facility] Comment on above: Performed By: #### L 100.0100, L500.2500 ####[facility] [address] [place], [address] WBC (Bld) [#/Vol] 2.6 10*3/uL Low 4.4-11.0 [facility] Comment on above: Performed By: #### L 100.0100, L500.2500 ####[facility] [address] [place], [address] Echocardiogram study reportO rdered By: Joselyn Brody on 12-02-2024 Study report [facility] [address] [place] [address] Echo Complete 12/01/24 1532 MR#: [id number] Acct: [id number] Name: ROBERTO FERGUSON Rep #:[id number] : 1935 89 From: Joselyn montalvo MD Attending Dr: Dr. Marga Butcher MD Status: ADM PATRICIA Ordering Dr: Marga Butcher MD Date: [place] [facility] [place] Sex: F C Admitted: 11/30/24 Reason For [...] Dictated: 12/01/24 1532 Date Transcribed: 12/02/24 1308 Crop Quantitative Geneticist: Signed [facility] Other Phone: [phone] 12-02-2024 Trop T High Sen 42 ng/L High <=14 [facility] Comment on above: Performed By: #### L 501.4021 ####[facility] [address] [place], [address] Troponin T HS 2 HRon 025 Trop T High Sen 41 ng/L High <=14 [facility] Comment on above: Performed By: #### L 499.0042 ####[facility] [address] [place], [address] Troponin T HS 4 HRon 025 Trop T High Sen 48 ng/L High <=14 [facility] Comment on above: Performed By: #### L 499.0043 ####[facility] [address] [place], [address] Troponin T.cardiac [Mass/vol ume] in Serum or Plasma by High sensitivity methodOrdered By: Marga Butcher on 12-02-2024 Troponin T.cardiac High sensitivity method [Mass/Vol] 48 ng/L High <14 [facility] Troponin T.cardiac High sensitivity method [Mass/Vol] 41 ng/L High <14 [facility] Troponin T.cardiac High sensitivity method [Mass/Vol] 42 ng/L High <14 [facility] Basic Metabolic Profile (BMP )on 12-01-2024 BUN/CRE 20.4 RATIO High 10-20 [facility] Comment on above: Performed By: #### L 100.0500, L500.2500 ####[facility] [address] [place], [address] Calcium [Mass/Vol] 8.1 mg/dL Normal 7.6-11.0 [facility] Comment on above: Performed By: #### L 100.0500, L500.2500 ####[facility] [address] [place], [address] Chloride [Moles/Vol] 106 mmol/L Normal 98-108 [facility] Comment on above: Performed By: #### L 100.0500, L500.2500 ####[facility] [address] [place], [address] CO2 [Moles/Vol] 23.5 mmol/L Normal 21.0-32.0 [facility] Comment on above: Performed By: #### L 100.0500, L500.2500 ####[facility] [address] [place], [address] Creatinine [Mass/Vol] 1.16 mg/dL Normal 0.70-1.20 [facility] Comment on above: Performed By: #### L 100.0500, L500.2500 ####[facility] [address] [place], [address] ECRCL 26.84 ml/min Low 50-250 [facility] Comment on above: Performed By: #### L 100.0500, L500.2500 ####[facility] [address] [place], [address] GAP 9 Normal 5-15 [facility] Comment on above: Performed By: #### L 100.0500, L500.2500 ####[facility] [address] [place], [address] GFR/1.73 sq M.predicted among non-blacks MDRD (S/P/Bld) [Vol rate/Area] 45 mL/min/{1.73_m2} Low >60 [facility] Comment on above: Result Comment: mL/m in/1.73m2 CKD-EPI Creatinine Equation (2020) Performed By: #### L 100.0500, L500.2500 ####[facility] [address] [place], [address] Glucose [Mass/Vol] 88 mg/dL Normal 70-99 [facility] Comment on above: Performed By: #### L 100.0500, L500.2500 ####[facility] [address] [place], [address] Potassium [Moles/Vol] 3.8 mmol/L Normal 3.3-5.1 [facility] Comment on above: Performed By: #### L 100.0500, L500.2500 ####[facility] [address] [place], [address] Sodium [Moles/Vol] 138 mmol/L Normal 133-145 [facility] Comment on above: Performed By: #### L 100.0500, L500.2500 ####[facility] [address] [place], [address] Urea nitrogen [Mass/Vol] 24 mg/dL High 4-19 [facility] Comment on above: Performed By: #### L 100.0500, L500.2500 ####[facility] [address] [place], [address] Bilirubin Test strip Ql (U)O rdered By: Marga Butcher on 12-01-2024 Bilirubin Ql (U) Negative Negative [facility] CBC-Complete Blood Cnt No Di ffon 12-01-2024 Erythrocyte distribution width (RBC) [Ratio] 14.3 % Normal 11.6-14.6 [facility] Comment on above: Performed By: #### L 100.0500, L500.2500 ####[facility] [address] [place], [address] Hematocrit (Bld) [Volume fraction] 38.8 % Normal 37-47 [facility] Comment on above: Performed By: #### L 100.0500, L500.2500 ####[facility] [address] [place], [address] Hemoglobin (Bld) [Mass/Vol] 13.4 g/dL Normal 12.0-15.0 [facility] Comment on above: Performed By: #### L 100.0500, L500.2500 ####[facility] [address] [place], [address] MCH (RBC) [Entitic mass] 33.3 pg High 27.0-32.0 [facility] Comment on above: Performed By: #### L 100.0500, L500.2500 ####[facility] [address] [place], [address] MCHC (RBC) [Mass/Vol] 34.5 g/dL Normal 32-36 [facility] Comment on above: Performed By: #### L 100.0500, L500.2500 ####[facility] [address] [place], [address] MCV (RBC) [Entitic vol] 96.5 fL Normal 81-99 [facility] Comment on above: Performed By: #### L 100.0500, L500.2500 ####[facility] [address] [place], [address] Platelet mean volume (Bld) [Entitic vol] 11.1 fL Normal 6.2-12.0 [facility] Comment on above: Performed By: #### L 100.0500, L500.2500 ####[facility] [address] [place], [address] Platelets (Bld) [#/Vol] 101 10*3/uL Low 150-450 [facility] Comment on above: Performed By: #### L 100.0500, L500.2500 ####[facility] [address] [place], [address] RBC (Bld) [#/Vol] 4.02 10*6/uL Low 4.2-5.4 [facility] Comment on above: Performed By: #### L 100.0500, L500.2500 ####[facility] [address] [place], [address] RDW SD 51.0 fl High 35.1-43.9 [facility] Comment on above: Performed By: #### L 100.0500, L500.2500 ####[facility] [address] [place], [place], [address] WBC (Bld) [#/Vol] 2.6 10*3/uL Low 4.4-11.0 [facility] Comment on above: Performed By: #### L 100.0500, L500.2500 ####[facility] [address] [place], [address] Echo Completeon 12-01-2024 Echo Complete Normal [facility] Ketones Test strip Ql (U)Ord ered By: Marga Butcher on 12-01-2024 Ketones Ql (U) Negative Negative [facility] Magnesiumon 12-01-2024 Magnesium [Mass/Vol] 1.7 mg/dL Normal 1.5-2.2 [facility] Comment on above: Performed By: #### L 503.0106, L506.1001, L501.5200 ####[facility] [address] [place], [place], [address] Microscopic analysis of urin e for red blood cells (RBC)Ordered By: Marga Butcher on 12-01-2024 Microscopic analysis of urine for red blood cells (RBC) 0 SEEN /hpf 0-5 [facility] Mucus LM Ql (Urine sed)Order ed By: Marga Butcher on 12-01-2024 Mucus Ql (Urine sed) 0 SEEN /hpf [facility] Nitrite Test strip Ql (U)Ord ered By: Marga Butcher on 12-01-2024 Nitrite Ql (U) Negative Negative [facility] Protein Test strip Ql (U)Ord ered By: Marga Butcher on 12-01-2024 Protein Ql (U) 15 mg/dl High Negative [facility] Squamous epithelial cells de tection in urine sediment by light microscopyOrdered By: Marga Butcher on 12-01-2024 Epithelial cells.squamous LM Ql (Urine sed) 0-5 SEEN /hpf 5-10 [facility] Urinalysis, Completeon 12-01 EPI,SQUAMOUS 0-5 SEEN Normal 5-10 [facility] Comment on above: Order Comment: CLEAN CATCH Performed By: #### M 100.2200, L400.0001 ####[facility] [address] [place], [address] WBC 0-5 SEEN Normal 0-5 [facility] Comment on above: Order Comment: CLEAN CATCH Performed By: #### M 100.2200, L400.0001 ####[facility] [address] [place], [address] BACTERIA 0 SEEN Normal None Seen [facility] Comment on above: Order Comment: CLEAN CATCH Performed By: #### M 100.2200, L400.0001 ####[facility] [address] [place], [address] Mucus Ql (Urine sed) 0 SEEN Normal [facility] Comment on above: Order Comment: CLEAN CATCH Performed By: #### M 100.2200, L400.0001 ####[facility] [address] [place], [address] RBC 0 SEEN Normal 0-5 [facility] Comment on above: Order Comment: CLEAN CATCH Performed By: #### M 100.2200, L400.0001 ####[facility] [address] [place], [address] Urine clarityOrdered By: Bc Butcher on 12-01-2024 Clarity (U) Sl. Cloudy Clear [facility] Urine color determinationOrd ered By: Marga Butcher on 12-01-2024 Color (U) Yellow Yellow [facility] Urine cultureOrdered By: Bc Butcher on 12-01-2024 Bacteria identified Cx Nom (U) Presumptive E. coli Abnormal [facility] Bacteria identified Cx Nom (U) Positive Abnormal [facility] Urine glucose detectionOrder ed By: Marga Butcher on 12-01-2024 Glucose Ql (U) 1000 mg/dl High Normal [facility] Urine leukocyte esterase det ection by dipstickOrdered By: Marga Butcher on 12-01-2024 Leukocyte esterase Test strip Ql (U) 25 /ul High Negative [facility] Urine pHOrdered By: Marga dee on 12-01-2024 pH (U) 7.0 [pH] 5.0 - 8.0 [facility] Urine sediment bacteria coun t by microscopy (number/high power field)Ordered By: Marga Butcher on 12-01-2024 Bacteria LM.HPF (Urine sed) [#/Area] 0 /[HPF] None Seen [facility] Urine specific gravity measu rementOrdered By: Marga Butcher on 12-01-2024 Specific gravity (U) [Rel density] 1.010 1.002-1.03 0 [facility] Urine urobilinogen measureme ntOrdered By: Marga Butcher on 12-01-2024 Urobilinogen Ql (U) Normal mg/dl Normal [facility] Vitamin B12on 12-01-2024 Cobalamin (Vitamin B12) [Mass/Vol] 390 pg/mL Normal 180-914 [facility] Comment on above: Performed By: #### L 503.0106, L506.1001, L501.5200 ####[facility] [address] [facility] [place], [place], [address] Vitamin B12 ser/plasOrdered By: Marga Butcher on 12-01-2024 Cobalamin (Vitamin B12) [Mass/Vol] 390 pg/mL 180-914 [facility] Vitamin D,25 Hydroxyon 12-01 Vitamin D 25-OH 25.7 ng/mL Low 30-100 [facility] Comment on above: Result Comment: Catherine min D StatusDeficiency: <20 ng/mL (50nmol/L)Insufficiency: 20-30 ng/mL (50-75 nmol/L)Sufficiency: 30-100 ng/mL (75-250 nmol/L)Toxicity: >100 ng/mL (>250 nmol/L) Performed By: #### L 503.0106, L506.1001, L501.5200 ####[facility] [address] [place], [place], [id number] White blood cell countOrdere d By: Marga Butcher on 12-01-2024 White blood cell count 0-5 SEEN /hpf 0-5 [facility] 12 Lead EKGon 11-30-2024 12 Lead EKG Normal [facility] Absolute lymphocyte countOrd ered By: Nikos [place] on 11-30-2024 Lymphocytes Auto (Unsp spec) [#/Vol] 1.09 10*3/uL 0.83-4.51 [facility] Absolute neutrophil countOrd ered By: Nikos [place] on 11-30-2024 Neutrophils (Bld) [#/Vol] 2.1 10*3/uL 2.0-7.7 [facility] Anion gap in Serum or Plasma Ordered By: Nikos [place] on 11-30-2024 Anion gap [Moles/Vol] 13 mmol/L 5-15 [facility] Automated lymphocyte count a s percentage of total leukocytesOrdered By: Nikos Lake on 11-30-2024 Lymphocytes/100 WBC Auto (Unsp spec) 27.5 % 19-41 [facility] BUN/creatinine ratioOrdered By: Nikos [place] on 11-30-2024 Urea nitrogen/Creatinine [Mass ratio] 22.7 mg/mg High 10-20 [facility] Basophil percentageOrdered B y: Nikos [place] on 11-30-2024 Basophils/100 WBC (Bld) 0.5 % 0-1 [facility] Bilirubin, totalOrdered By: Nikos Lake on 11-30-2024 Bilirubin [Mass/Vol] 0.65 mg/dL 0.00-1.30 [facility] Brain/Head without Contrasto n 11-30-2024 Brain/Head without Contrast Normal [facility] CBC W/Diff, Automatedon 11-02 Absolute Lymph 1.09 X10 3/uL Normal 0.83-4.51 [facility] Comment on above: Performed By: #### L 500.4050, L100.0100 ####[facility] [address] [place], [place], [id number] Absolute Neut 2.1 X10 3/uL Normal 2.0-7.7 [facility] Comment on above: Performed By: #### L 500.4050, L100.0100 ####[facility] [address] [place], [address] Basophils/100 WBC (Bld) 0.5 % Normal 0-1 [facility] Comment on above: Performed By: #### L 500.4050, L100.0100 ####[facility] [address] [place], [address] Eosinophils/100 WBC (Bld) 1.0 % Normal 0-5 [facility] Comment on above: Performed By: #### L 500.4050, L100.0100 ####[facility] [address] [place], [address] Erythrocyte distribution width (RBC) [Ratio] 14.5 % Normal 11.6-14.6 [facility] Comment on above: Performed By: #### L 500.4050, L100.0100 ####[facility] [address] [place], [address] Hematocrit (Bld) [Volume fraction] 45.8 % Normal 37-47 [facility] Comment on above: Performed By: #### L 500.4050, L100.0100 ####[facility] [address] [place], [address] Hemoglobin (Bld) [Mass/Vol] 15.6 g/dL High 12.0-15.0 [facility] Comment on above: Performed By: #### L 500.4050, L100.0100 ####[facility] [address] [place], [address] IG% 0.300 Normal 0.0-0.9 [facility] Comment on above: Result Comment: IG% - Immature Granulocytes (promyelocytes, myelocytes andmetamyelocytes) > 1% indicates that a LEFT SHIFT is Present. Performed By: #### L 500.4050, L100.0100 ####[facility] [address] [place], [address] Lymphocytes/100 WBC (Bld) 27.5 % Normal 19-41 [facility] Comment on above: Performed By: #### L 500.4050, L100.0100 ####[facility] [address] [place], [address] MCH (RBC) [Entitic mass] 32.8 pg High 27.0-32.0 [facility] Comment on above: Performed By: #### L 500.4050, L100.0100 ####[facility] [address] [place], [address] MCHC (RBC) [Mass/Vol] 34.1 g/dL Normal 32-36 [facility] Comment on above: Performed By: #### L 500.4050, L100.0100 ####[facility] [address] [place], [address] MCV (RBC) [Entitic vol] 96.4 fL Normal 81-99 [facility] Comment on above: Performed By: #### L 500.4050, L100.0100 ####[facility] [address] [place], [address] Monocytes/100 WBC (Bld) 17.9 % High 0-10 [facility] Comment on above: Performed By: #### L 500.4050, L100.0100 ####[facility] [address] [place], [address] Neutrophils/100 WBC (Bld) 52.8 % Normal 47-70 [facility] Comment on above: Performed By: #### L 500.4050, L100.0100 ####[facility] [address] [place], [address] Nucleated RBC (Bld) [#/Vol] 0 10*3/uL Normal 0-5 [facility] Comment on above: Performed By: #### L 500.4050, L100.0100 ####[facility] [address] [place], [address] Platelet mean volume (Bld) [Entitic vol] 12.0 fL Normal 6.2-12.0 [facility] Comment on above: Performed By: #### L 500.4050, L100.0100 ####[facility] [address] [place], [address] Platelets (Bld) [#/Vol] 124 10*3/uL Low 150-450 [facility] Comment on above: Performed By: #### L 500.4050, L100.0100 ####[facility] [address] [place], [address] RBC (Bld) [#/Vol] 4.75 10*6/uL Normal 4.2-5.4 [facility] Comment on above: Performed By: #### L 500.4050, L100.0100 ####[facility] [address] [place], [address] RDW SD 51.2 fl High 35.1-43.9 [facility] Comment on above: Performed By: #### L 500.4050, L100.0100 ####[facility] [address] [place], [address] WBC (Bld) [#/Vol] 4.0 10*3/uL Low 4.4-11.0 [facility] Comment on above: Performed By: #### L 500.4050, L100.0100 ####[facility] [address] [place], [address] Carbon dioxide, total [Moles /volume] in Central venous bloodOrdered By: Nikos Lake on 11-30-2024 CO2 [Moles/Vol] 22.4 mmol/L 21.0-32.0 [facility] Chest 1 View (Portable)on Chest 1 View (Portable) Normal [facility] Chloride assayOrdered By: Alex oscar Jaya on 11-30-2024 Chloride [Moles/Vol] 104 mmol/L 98-108 [facility] Comprehensive Metabolic Prof ilon 11-30-2024 Albumin [Mass/Vol] 3.5 g/dL Normal 3.4-4.8 [facility] Comment on above: Order Comment: REDRA W X2. PREVIOUS SPECIMEN REJECTED DUE TOHEMOLYSIS. 11/30/24 1308 Radha Dowell. Performed By: #### L 500.4050 ####[facility] [address] [place], [address] Albumin/Globulin [Mass ratio] 1.5 {ratio} Normal 0.9-2.4 [facility] Comment on above: Order Comment: REDRA W X2. PREVIOUS SPECIMEN REJECTED DUE TOHEMOLYSIS. 11/30/24 1308 Radha Dowell. Performed By: #### L 500.4050 ####[facility] [address] [place], [address] ALK PHOS 45 U/L Normal 35-104 [facility] Comment on above: Order Comment: REDRA W X2. PREVIOUS SPECIMEN REJECTED DUE TOHEMOLYSIS. 11/30/24 1308 Radha Dowell. Performed By: #### L 500.4050 ####[facility] [address] [place], [address] ALT [Catalytic activity/Vol] 22 U/L Normal <=34 [facility] Comment on above: Order Comment: REDRA W X2. PREVIOUS SPECIMEN REJECTED DUE TOHEMOLYSIS. 11/30/24 1308 Radha Dowell. Performed By: #### L 500.4050 ####[facility] [address] [place], [address] AST [Catalytic activity/Vol] 23 U/L Normal <=31 [facility] Comment on above: Order Comment: REDRA W X2. PREVIOUS SPECIMEN REJECTED DUE TOHEMOLYSIS. 11/30/24 1308 Radha Dowell. Performed By: #### L 500.4050 ####[facility] [address] [place], [address] Bilirubin [Mass/Vol] 0.65 mg/dL Normal 0.00-1.30 [facility] Comment on above: Order Comment: REDRA W X2. PREVIOUS SPECIMEN REJECTED DUE TOHEMOLYSIS. 11/30/24 1308 Radha Dowell. Performed By: #### L 500.4050 ####[facility] [address] [place], [address] BUN/CRE 22.7 RATIO High 10-20 [facility] Comment on above: Order Comment: REDRA W X2. PREVIOUS SPECIMEN REJECTED DUE TOHEMOLYSIS. 11/30/248 Radha Dowell. Performed By: #### L 500.4050 ####[facility] [address] [place], [address] Calcium [Mass/Vol] 8.7 mg/dL Normal 7.6-11.0 [facility] Comment on above: Order Comment: REDRA W X2. PREVIOUS SPECIMEN REJECTED DUE TOHEMOLYSIS. 11/30/248 Radha Dowell. Performed By: #### L 500.4050 ####[facility] [address] [place], [address] Chloride [Moles/Vol] 104 mmol/L Normal 98-108 [facility] Comment on above: Order Comment: REDRA W X2. PREVIOUS SPECIMEN REJECTED DUE TOHEMOLYSIS. 11/30/24 1308 Radha Dowell. Performed By: #### L 500.4050 ####[facility] [address] [place], [address] CO2 [Moles/Vol] 22.4 mmol/L Normal 21.0-32.0 [facility] Comment on above: Order Comment: REDRA W X2. PREVIOUS SPECIMEN REJECTED DUE TOHEMOLYSIS. 11/30/24 1308 Radha Dowell. Performed By: #### L 500.4050 ####[facility] [address] [place], [address] Creatinine [Mass/Vol] 1.15 mg/dL Normal 0.70-1.20 [facility] Comment on above: Order Comment: REDRA W X2. PREVIOUS SPECIMEN REJECTED DUE TOHEMOLYSIS. 11/30/24 1308 Radha Dowell. Performed By: #### L 500.4050 ####[facility] [address] [place], [address] ECRCL 27.44 ml/min Low 50-250 [facility] Comment on above: Order Comment: REDRA W X2. PREVIOUS SPECIMEN REJECTED DUE TOHEMOLYSIS. 11/30/24 1308 Radha Dowell. Performed By: #### L 500.4050 ####[facility] [address] [place], [address] GAP 13 Normal 5-15 [facility] Comment on above: Order Comment: REDRA W X2. PREVIOUS SPECIMEN REJECTED DUE TOHEMOLYSIS. 11/30/24 1308 Radha Dowell. Performed By: #### L 500.4050 ####[facility] [address] [place], [address] GFR/1.73 sq M.predicted among non-blacks MDRD (S/P/Bld) [Vol rate/Area] 46 mL/min/{1.73_m2} Low >60 [facility] Comment on above: Order Comment: REDRA W X2. PREVIOUS SPECIMEN REJECTED DUE TOHEMOLYSIS. 11/30/24 1308 Radha Dowell. Result Comment: mL/m in/1.73m2 CKD-EPI Creatinine Equation (2020) Performed By: #### L 500.4050 ####[facility] [address] [place], [address] Globulin (S) [Mass/Vol] 2.2 g/dL Normal 2.2-4.2 [facility] Comment on above: Order Comment: REDRA W X2. PREVIOUS SPECIMEN REJECTED DUE TOHEMOLYSIS. 11/30/24 1308 Radha Dowell. Performed By: #### L 500.4050 ####[facility] [address] [place], [address] Glucose [Mass/Vol] 105 mg/dL High 70-99 [facility] Comment on above: Order Comment: REDRA W X2. PREVIOUS SPECIMEN REJECTED DUE TOHEMOLYSIS. 11/30/24 1308 Radha Dowell. Performed By: #### L 500.4050 ####[facility] [address] [place], [address] Potassium [Moles/Vol] 4.1 mmol/L Normal 3.3-5.1 [facility] Comment on above: Order Comment: REDRA W X2. PREVIOUS SPECIMEN REJECTED DUE TOHEMOLYSIS. 11/30/248 Radha Dowell. Performed By: #### L 500.4050 ####[facility] [address] [place], [address] Sodium [Moles/Vol] 139 mmol/L Normal 133-145 [facility] Comment on above: Order Comment: REDRA W X2. PREVIOUS SPECIMEN REJECTED DUE TOHEMOLYSIS. 11/30/241307 Radha Dowell. Performed By: #### L 500.4050 ####[facility] [address] [place], [address] T PROT 5.7 g/dL Low 5.9-8.4 [facility] Comment on above: Order Comment: REDRA W X2. PREVIOUS SPECIMEN REJECTED DUE TOHEMOLYSIS. 11/30/24 1308 Radha Dowell. Performed By: #### L 500.4050 ####[facility] [address] [place], [address] Urea nitrogen [Mass/Vol] 26 mg/dL High 4-19 [facility] Comment on above: Order Comment: REDRA W X2. PREVIOUS SPECIMEN REJECTED DUE TOHEMOLYSIS. 11/30/24 1308 Radha Dowell. Performed By: #### L 500.4050 ####[facility] [address] [place], [address] ALB Normal 3.4-4.8 [facility] Comment on above: Order Comment: REDRA W Result Comment: This specimen has been REJECTED due to Laboratory criteria:Hemolyzed.MALDONADO has been notified of need of recollection.11/30/24 1308 Radha Dowell Performed By: #### L 500.4050 ####[facility] [address] [facility] [address] ALK PHOS Normal 35-104 [facility] Comment on above: Order Comment: REDRA W Result Comment: This specimen has been REJECTED due to Laboratory criteria:Hemolyzed.MALDONADO has been notified of need of recollection.11/30/24 1308 Radha Dowell Performed By: #### L 500.4050 ####[facility] [address] [facility] [address] ALT Normal <=34 [facility] Comment on above: Order Comment: REDRA W Result Comment: This specimen has been REJECTED due to Laboratory criteria:Hemolyzed.MALDONADO has been notified of need of recollection.11/30/24 1308 Radha Dowell Performed By: #### L 500.4050 ####[facility] [address] [facility] [address] AST Normal <=31 [facility] Comment on above: Order Comment: REDRA W Result Comment: This specimen has been REJECTED due to Laboratory criteria:Hemolyzed.MALDONADO has been notified of need of recollection.11/30/24 1308 Radha Dowell Performed By: #### L 500.4050 ####[facility] [address] [place], [address] BUN Normal 4-19 [facility] Comment on above: Order Comment: REDRA W Result Comment: This specimen has been REJECTED due to Laboratory criteria:Hemolyzed.MALDONADO has been notified of need of recollection.11/30/241307 Radha Dowell Performed By: #### L 500.4050 ####[facility] [address] [place], [address] BUN/CRE Normal 10-20 [facility] Comment on above: Order Comment: REDRA W Result Comment: This specimen has been REJECTED due to Laboratory criteria:Hemolyzed.LORILIE has been notified of need of recollection.11/30/24 130 Radha Dowell Performed By: #### L 500.4050 ####[facility] [address] [place], [address] Calcium Normal 7.6-11.0 [facility] Comment on above: Order Comment: REDRA W Result Comment: This specimen has been REJECTED due to Laboratory criteria:Hemolyzed.LORILIE has been notified of need of recollection.11/30/241307 Radha Dowell Performed By: #### L 500.4050 ####[facility] [address] [place], [address] CL Normal 98-108 [facility] Comment on above: Order Comment: REDRA W Result Comment: This specimen has been REJECTED due to Laboratory criteria:Hemolyzed.LORILIE has been notified of need of recollection.11/30/24 130 Radha Dowell Performed By: #### L 500.4050 ####[facility] [address] [place], [address] CO2 Normal 21.0-32.0 [facility] Comment on above: Order Comment: REDRA W Result Comment: This specimen has been REJECTED due to Laboratory criteria:Hemolyzed.LORILIE has been notified of need of recollection.11/30/241307 Radha Dowell Performed By: #### L 500.4050 ####[facility] [address] [place], [address] CREAT,SERUM Normal 0.70-1.20 [facility] Comment on above: Order Comment: REDRA W Result Comment: This specimen has been REJECTED due to Laboratory criteria:Hemolyzed.MALDONADO has been notified of need of recollection.11/30/24 1308 Radha Dowell Performed By: #### L 500.4050 ####[facility] [address] [place], [address] eGFR Normal >60 [facility] Comment on above: Order Comment: REDRA W Result Comment: This specimen has been REJECTED due to Laboratory criteria:Hemolyzed.MALDONADO has been notified of need of recollection.11/30/24 1308 Radha Dowell Performed By: #### L 500.4050 ####[facility] [address] [place], [address] GAP Normal 5-15 [facility] Comment on above: Order Comment: REDRA W Result Comment: This specimen has been REJECTED due to Laboratory criteria:Hemolyzed.MALDONADO has been notified of need of recollection.11/30/24 1308 Radha Dowell Performed By: #### L 500.4050 ####[facility] [address] [place], [address] GLU Normal 70-99 [facility] Comment on above: Order Comment: REDRA W Result Comment: This specimen has been REJECTED due to Laboratory criteria:Hemolyzed.MALDONADO has been notified of need of recollection.11/30/24 1308 Radha Dowell Performed By: #### L 500.4050 ####[facility] [address] [place], [address] Potassium Normal 3.3-5.1 [facility] Comment on above: Order Comment: REDRA W Result Comment: This specimen has been REJECTED due to Laboratory criteria:Hemolyzed.MALDONADO has been notified of need of recollection.11/30/24 1308 Radha Dowell Performed By: #### L 500.4050 ####[facility] [address] [place], [address] T BILI Normal 0.00-1.30 [facility] Comment on above: Order Comment: REDRA W Result Comment: This specimen has been REJECTED due to Laboratory criteria:Hemolyzed.KERONE has been notified of need of recollection.11/30/24 1308 Radha Dowell Performed By: #### L 500.4050 ####[facility] [address] [place], [address] T PROT Normal 5.9-8.4 [facility] Comment on above: Order Comment: REDRA W Result Comment: This specimen has been REJECTED due to Laboratory criteria:Hemolyzed.LORILIE has been notified of need of recollection.11/30/24 1308 Radha Dowell Performed By: #### L 500.4050 ####[facility] [address] [place], [address] Comprehensive Metabolic Profil Normal 133-145 [facility] Comment on above: Order Comment: REDRA W Result Comment: This specimen has been REJECTED due to Laboratory criteria:Hemolyzed.LORILIE has been notified of need of recollection.11/30/24 1308 Radha Dowell Performed By: #### L 500.4050 ####[facility] [address] [facility] [address] ALB Normal 3.4-4.8 [facility] Comment on above: Result Comment: REDR AW. PREVIOUS SPECIMEN REJECTED DUE TOHEMOYSIS. 11/30/24 Lance Garcia.NOTIFIED LORILIE WILL NOTIFY NURSE Performed By: #### L 500.4050, L100.0100 ####[facility] [address] [place], [address] ALK PHOS Normal 35-104 [facility] Comment on above: Result Comment: REDR AW. PREVIOUS SPECIMEN REJECTED DUE TOHEMOYSIS. 11/30/24 Lance Garcia.NOTIFIED LORILIE WILL NOTIFY NURSE Performed By: #### L 500.4050, L100.0100 ####[facility] [address] [place], [address] ALT Normal <=34 [facility] Comment on above: Result Comment: REDR AW. PREVIOUS SPECIMEN REJECTED DUE TOHEMOYSIS. 11/30/24 Lance Garcia.NOTIFIED LORILIE WILL NOTIFY NURSE Performed By: #### L 500.4050, L100.0100 ####[facility] [address] [place], [address] AST Normal <=31 [facility] Comment on above: Result Comment: REDR AW. PREVIOUS SPECIMEN REJECTED DUE TOHEMOYSIS. 11/30/24 [facility] Lynn Garcia.NOTIFIED LORILIE WILL NOTIFY NURSE Performed By: #### L 500.4050, L100.0100 ####[facility] [address] [place], [address] BUN Normal 4-19 [facility] Comment on above: Result Comment: REDR AW. PREVIOUS SPECIMEN REJECTED DUE TOHEMOYSIS. 11/30/24 [facility] Lynn Garcia.NOTIFIED LORILIE WILL NOTIFY NURSE Performed By: #### L 500.4050, L100.0100 ####[facility] [address] [place], [address] BUN/CRE Normal 10-20 [facility] Comment on above: Result Comment: REDR AW. PREVIOUS SPECIMEN REJECTED DUE TOHEMOYSIS. 11/30/24 [facility] Lynn Garcia.NOTIFIED LORILIE WILL NOTIFY NURSE Performed By: #### L 500.4050, L100.0100 ####[facility] [address] [place], [address] Calcium Normal 7.6-11.0 [facility] Comment on above: Result Comment: REDR AW. PREVIOUS SPECIMEN REJECTED DUE TOHEMOYSIS. 11/30/24 [facility] Lynn Garcia.NOTIFIED LORILIE WILL NOTIFY NURSE Performed By: #### L 500.4050, L100.0100 ####[facility] [address] [place], [address] CL Normal 98-108 [facility] Comment on above: Result Comment: REDR AW. PREVIOUS SPECIMEN REJECTED DUE TOHEMOYSIS. 11/30/24 [facility] Lynn Garcia.NOTIFIED LORILIE WILL NOTIFY NURSE Performed By: #### L 500.4050, L100.0100 ####[facility] [address] [place], [address] CO2 Normal 21.0-32.0 [facility] Comment on above: Result Comment: REDR AW. PREVIOUS SPECIMEN REJECTED DUE TOHEMOYSIS. 11/30/24 [facility] Lynn Garcia.NOTIFIED LORILIE WILL NOTIFY NURSE Performed By: #### L 500.4050, L100.0100 ####[facility] [address] [place], [address] CREAT,SERUM Normal 0.70-1.20 [facility] Comment on above: Result Comment: REDR AW. PREVIOUS SPECIMEN REJECTED DUE TOHEMOYSIS. 11/30/24 [facility] Lynntariq Garcia.NOTIFIED LORILIE WILL NOTIFY NURSE Performed By: #### L 500.4050, L100.0100 ####[facility] [address] [place], [address] eGFR Normal >60 [facility] Comment on above: Result Comment: REDR AW. PREVIOUS SPECIMEN REJECTED DUE TOHEMOYSIS. 11/30/24 [facility] Lynn Garcia.NOTIFIED LORILIE WILL NOTIFY NURSE Performed By: #### L 500.4050, L100.0100 ####[facility] [address] [place], [address] GAP Normal 5-15 [facility] Comment on above: Result Comment: REDR AW. PREVIOUS SPECIMEN REJECTED DUE TOHEMOYSIS. 11/30/24 [facility] Lynn Garcia.NOTIFIED LORILIE WILL NOTIFY NURSE Performed By: #### L 500.4050, L100.0100 ####[facility] [address] [place], [address] GLU Normal 70-99 [facility] Comment on above: Result Comment: REDR AW. PREVIOUS SPECIMEN REJECTED DUE TOHEMOYSIS. 11/30/24 Leonardo Lynn Garcia.NOTIFIED LORILIE WILL NOTIFY NURSE Performed By: #### L 500.4050, L100.0100 ####[facility] [address] [place], [address] Potassium Normal 3.3-5.1 [facility] Comment on above: Result Comment: REDR AW. PREVIOUS SPECIMEN REJECTED DUE TOHEMOYSIS. 11/30/24 [facility] Lynn Garcia.NOTIFIED LORILIE WILL NOTIFY NURSE Performed By: #### L 500.4050, L100.0100 ####[facility] [address] [facility] [address] T BILI Normal 0.00-1.30 [facility] Comment on above: Result Comment: REDR AW. PREVIOUS SPECIMEN REJECTED DUE TOHEMOYSIS. 11/30/24 [facility] Lynn Garcia.NOTIFIED LORILIE WILL NOTIFY NURSE Performed By: #### L 500.4050, L100.0100 ####[facility] [address] [facility] [address] T PROT Normal 5.9-8.4 [facility] Comment on above: Result Comment: REDR AW. PREVIOUS SPECIMEN REJECTED DUE TOHEMOYSIS. 11/30/24 [facility] Lynntariq Garcia.NOTIFIED LORILIE WILL NOTIFY NURSE Performed By: #### L 500.4050, L100.0100 ####[facility] [address] [place], [address] Comprehensive Metabolic Profil Normal 133-145 [facility] Comment on above: Result Comment: REDR AW. PREVIOUS SPECIMEN REJECTED DUE TOHEMOYSIS. 11/30/24 [facility] Lynn Garcia.NOTIFIED LORILIE WILL NOTIFY NURSE Performed By: #### L 500.4050, L100.0100 ####[facility] [address] [place], [address] Emergency Department Summary on 11-30-2024 Emergency Department Summary Normal [facility] Eosinophil percentageOrdered By: Nikos Lake on 11-30-2024 Eosinophils/100 WBC (Bld) 1.0 % 0-5 [facility] Erythrocyte distribution wid th ratioOrdered By: Nikos Lake on 11-30-2024 Erythrocyte distribution width (RBC) [Ratio] 14.5 % 11.6-14.6 [facility] Erythrocyte distribution wid th standard deviationOrdered By: Nikos Lake on 11-30-2024 Erythrocyte distribution width (RBC) [Ratio] 51.2 fl High 35.1-43.9 [facility] Glomerular filtration rate ( GFR) estimation/1.73 sq m using serum, plasma, or whole bOrdered By: Nikos Lake on 11-30-2024 GFR/1.73 sq M.predicted among non-blacks MDRD (S/P/Bld) [Vol rate/Area] 46 mL/min/{1.73_m2} Low >60 [facility] Comment on above: mL/min/1.73m2 CKD-EP I Creatinine Equation (2020) H AND P Exam - [facility] 11-30-2024 H&P Exam - Hospitalist Normal [facility] Hematocrit Auto (Bld) [Volum e fraction]Ordered By: Nikos Lake on 11-30-2024 Hematocrit (Bld) [Volume fraction] 45.8 % 37-47 [facility] Hemoglobin measurementOrdere d By: Nikos Lake on 11-30-2024 Hemoglobin (Bld) [Mass/Vol] 15.6 g/dL High 12.0-15.0 [facility] Immature granulocytes/100 WB C Auto (Bld)Ordered By: Nikos Lake on 11-30-2024 Immature granulocytes/100 WBC (Bld) 0.300 % 0.0-0.9 [facility] Comment on above: IG% - Immature Granu locytes (promyelocytes, myelocytes and metamyelocytes) > 1% indicates that a LEFT SHIFT is Present. Laboratory - Chemistry and C hemistry - challengeOrdered By: Nikos Lake on 11-30-2024 AST [Catalytic activity/Vol] 23 U/L <32 [facility] MCV (mean corpuscular volume ) determinationOrdered By: Nikos Lake on 11-30-2024 MCV (RBC) [Entitic vol] 96.4 fL 81-99 [facility] Mean corpuscular hemoglobin (MCH) determinationOrdered By: Nikos Lake on 11-30-2024 MCH (RBC) [Entitic mass] 32.8 pg High 27.0-32.0 [facility] Mean corpuscular hemoglobin concentration (MCHC) determinationOrdered By: Nikos Lake on 11-30-2024 MCHC (RBC) [Mass/Vol] 34.1 g/dL 32-36 [facility] Mean platelet volume determi nationOrdered By: Nikos Lake on 11-30-2024 Platelet mean volume (Bld) [Entitic vol] 12.0 fL 6.2-12.0 [facility] Monocyte percentageOrdered B y: Nikos Lake on 11-30-2024 Monocytes/100 WBC (Bld) 17.9 % High 0-10 [facility] Neutrophil percentageOrdered By: Nikos Lake on 11-30-2024 Neutrophils/100 WBC (Bld) 52.8 % 47-70 [facility] No Panel InformationOrdered By: Nikos Lake on 11-30-2024 23 U/L <32 [facility] Nucleated red blood cell per centageOrdered By: Nikos Lake on 11-30-2024 Nucleated RBC/100 WBC (Bld) [Ratio] 0 % 0-5 [facility] Platelet countOrdered By: Alex Lake on 11-30-2024 Platelets (Bld) [#/Vol] 124 10*3/uL Low 150-450 [facility] Potassium measurement (mass/ volume)Ordered By: Nikos Lake on 11-30-2024 Potassium (Unsp spec) [Mass/Vol] 4.1 mmol/L 3.3-5.1 [facility] RBC Auto (Bld) [#/Vol]Ordere d By: Nikos Lake on 11-30-2024 RBC (Bld) [#/Vol] 4.75 10*6/uL 4.2-5.4 [facility] Serum creatinine measurement (mass/volume)Ordered By: Nikos Lake on 11-30-2024 Creatinine [Mass/Vol] 1.15 mg/dL 0.70-1.20 [facility] Serum globulin measurementOr dered By: Nikos Lake on 11-30-2024 Globulin (S) [Mass/Vol] 2.2 g/dL 2.2-4.2 [facility] Serum glucose measurement (m ass/volume)Ordered By: Nikos Lake on 11-30-2024 Glucose [Mass/Vol] 105 mg/dL High 70-99 [facility] Serum or plasma alanine hay otransferase (ALT) measurementOrdered By: Nikos Lake on 11-30-2024 ALT [Catalytic activity/Vol] 22 U/L <35 [facility] Serum or plasma albumin criss urement (mass/volume)Ordered By: Nikos Lake on 11-30-2024 Albumin [Mass/Vol] 3.5 g/dL 3.4-4.8 [facility] Serum or plasma albumin/glob ulin mass ratioOrdered By: Nikos Lake on 11-30-2024 Albumin/Globulin [Mass ratio] 1.5 {ratio} 0.9-2.4 [facility] Serum or plasma alkaline ezra sphatase measurementOrdered By: Nikos Lake on 11-30-2024 ALP [Catalytic activity/Vol] 45 U/L 35-104 [facility] Serum or plasma calcium criss urement (mass/volume)Ordered By: Nikos Lake on 11-30-2024 Calcium [Mass/Vol] 8.7 mg/dL 7.6-11.0 [facility] Serum or plasma urea nitroge n measurement (mass/volume)Ordered By: Nikos Lake on 11-30-2024 Urea nitrogen [Mass/Vol] 26 mg/dL High 4-19 [facility] Sodium levelOrdered By: Nikos Lake on 11-30-2024 Sodium [Moles/Vol] 139 mmol/L 133-145 [facility] Spine Cervical without Contr ason 11-30-2024 Spine Cervical without Contras Normal [facility] TSH DL <= 0.005 mIU/L QnOrde red By: Sean Thornton on 11-30-2024 TSH Qn 2.500 uIU/mL 0.300-4.20 0 [facility] Thyroid Stim Hormone (TSH)on 11-30-2024 TSH 2.500 uIU/mL Normal 0.300-4.20 0 [facility] Comment on above: Performed By: #### L 501.9520 ####[facility] [address] [place], [address] Total proteinOrdered By: Mojgan joseph Jaya on 11-30-2024 Protein [Mass/Vol] 5.7 g/dL Low 5.9-8.4 [facility] White blood cell (WBC) count Ordered By: Nikos Jaya on 11-30-2024 WBC (Bld) [#/Vol] 4.0 10*3/uL Low 4.4-11.0 [facility] Oncology Visit Reporton 10-02 Oncology Visit Report Normal [facility] CA 15-3on 10-18-2024 CA 15-3 30.0 U/mL Abnormal 0.0-25.0 [facility] Comment on above: Result Comment: [employer] Electrochemiluminescence Immunoassay(ECLIA)Values obtained with different assay methods or kits cannotbe used interchangeably. Results cannot be interpreted asabsolute evidence of the presence or absence of malignantdisease.Performed at: [facility] [place] [id number] Director: Maxx Yi PhD, Phone: [phone] Performed By: #### L 504.2610, L100.0100, L3100.5040, L3100.5030, L500.2236 ####[facility] [address] [place], [address] CA 27.29on 10-18-2024 CA 27.29 43.7 U/mL Abnormal 0.0-38.6 [facility] Comment on above: Result Comment: [employer] Immunochemiluminometric Methodology (ICMA)Values obtained with different assay methods or kits cannotbe used interchangeably. Results cannot be interpreted asabsolute evidence of the presence or absence of malignantdisease. Performed By: #### L 504.2610, L100.0100, L3100.5040, L3100.5030, L500.4050 ####[facility] [address] [place], [place], [address] Comprehensive Metabolic Prof ilon 10-17-2024 Bilirubin [Mass/Vol] 0.92 mg/dL Normal 0.00-1.30 [facility] Comment on above: Performed By: #### L 504.2610, L100.0100, L3100.5040, L3100.5030, L500.4050 ####[facility] [address] [place], [place], [address] Absolute lymphocyte countOrd ered By: Matteo Jonas on 10-16-2024 Lymphocytes Auto (Unsp spec) [#/Vol] 0.93 10*3/uL 0.83-4.51 [facility] Absolute neutrophil countOrd ered By: Matteo Jonas on 10-16-2024 Neutrophils (Bld) [#/Vol] 1.4 10*3/uL Low 2.0-7.7 [facility] Anion gap in Serum or Plasma Ordered By: Matteo Jonas on 10-16-2024 Anion gap [Moles/Vol] 13 mmol/L 5-15 [facility] Automated lymphocyte count a s percentage of total leukocytesOrdered By: Matteo Jonas on 10-16-2024 Lymphocytes/100 WBC Auto (Unsp spec) 32.6 % 19-41 [facility] BUN/creatinine ratioOrdered By: Matteo Jonas on 10-16-2024 Urea nitrogen/Creatinine [Mass ratio] 26.0 mg/mg High 10-20 [facility] Basophil percentageOrdered B y: Matteo Jonas on 10-16-2024 Basophils/100 WBC (Bld) 0.7 % 0-1 [facility] Bilirubin, totalOrdered By: Matteo Jonas on 10-16-2024 Bilirubin [Mass/Vol] 0.92 mg/dL 0.00-1.30 [facility] Blood manual differential co mment interpretation (narrative result)Ordered By: Matteo Jonas on 10-16-2024 Manual differential comment Alejandro (Bld) [Interp] SCANNED [facility] Blood polychromasia detectio n by light microscopyOrdered By: Matteo Jonas on 10-16-2024 Polychromasia LM Ql (Bld) 1+ [facility] CA 15-3Ordered By: Matteo tierney on 10-16-2024 CA 15-3 30.0 U/mL High 0.0-25.0 [facility] Comment on above: [employer] El ectrochemiluminescence Immunoassay(ECLIA)Values obtained with different assay methods or kits cannotbe used interchangeably. Results cannot be interpreted asabsolute evidence of the presence or absence of malignantdisease.Performed at: [place] [id number] Director: Maxx Yi PhD, Phone: [phone] [place] .Ordered By: Matteo lyons on 10-16-2024 CA 27.29 43.7 U/mL High 0.0-38.6 [facility] Comment on above: [employer] Immu nochemiluminometric Methodology (ICMA)Values obtained with different assay methods or kits cannotbe used interchangeably. Results cannot be interpreted asabsolute evidence of the presence or absence of malignantdisease. CBC W/Diff, Automatedon 10-01 Anisocytosis Ql (Bld) 1+ Normal [facility] Comment on above: Performed By: #### L 504.2610, L100.0100, L3100.5040, L3100.5030, L500.4050 ####[facility] [address] [place], [address] POLYCHROMASIA 1+ Normal [facility] Comment on above: Performed By: #### L 504.2610, L100.0100, L3100.5040, L3100.5030, L500.4050 ####[facility] [address] [place], [address] PLT EST SLT DEC Normal ADEQ [facility] Comment on above: Performed By: #### L 504.2610, L100.0100, L3100.5040, L3100.5030, L500.4050 ####[facility] [address] [place], [address] SMEAR COMMENT SCANNED Normal [facility] Comment on above: Performed By: #### L 504.2610, L100.0100, L3100.5040, L3100.5030, L500.4050 ####[facility] [address] [place], [address] Carbon dioxide, total [Moles /volume] in Central venous bloodOrdered By: Matteo Jonas on 10-16-2024 CO2 [Moles/Vol] 23.6 mmol/L 21.0-32.0 [facility] Chloride assayOrdered By: Hailee Jonas on 10-16-2024 Chloride [Moles/Vol] 100 mmol/L 98-108 [facility] Eosinophil percentageOrdered By: Matteo Jonas on 10-16-2024 Eosinophils/100 WBC (Bld) 0.7 % 0-5 [facility] Erythrocyte distribution wid th ratioOrdered By: Matteo Jonas on 10-16-2024 Erythrocyte distribution width (RBC) [Ratio] 18.7 % High 11.6-14.6 [facility] Erythrocyte distribution wid th standard deviationOrdered By: Matteo Jonas on 10-16-2024 Erythrocyte distribution width (RBC) [Ratio] 65.9 fl High 35.1-43.9 [facility] Glomerular filtration rate ( GFR) estimation/1.73 sq m using serum, plasma, or whole bOrdered By: Matteo Jonas on 10-16-2024 GFR/1.73 sq M.predicted among non-blacks MDRD (S/P/Bld) [Vol rate/Area] 46 mL/min/{1.73_m2} Low >60 [facility] Comment on above: mL/min/1.73m2 CKD-EP I Creatinine Equation (2020) Hematocrit Auto (Bld) [Volum e fraction]Ordered By: Matteo Jonas on 10-16-2024 Hematocrit (Bld) [Volume fraction] 43.8 % 37-47 [facility] Hemoglobin measurementOrdere d By: Matteo Jonas on 10-16-2024 Hemoglobin (Bld) [Mass/Vol] 14.8 g/dL 12.0-15.0 [facility] Immature granulocytes/100 WB C Auto (Bld)Ordered By: Matteo Jonas on 10-16-2024 Immature granulocytes/100 WBC (Bld) 0.400 % 0.0-0.9 [facility] Comment on above: IG% - Immature Granu locytes (promyelocytes, myelocytes and metamyelocytes) > 1% indicates that a LEFT SHIFT is Present. LDHon 10-16-2024 LDH 218 U/L Normal 84-246 [facility] Comment on above: Order Comment: 1 Performed By: #### L 504.2610, L100.0100, L3100.5040, L3100.5030, L500.4050 ####[facility] [address] [place], [address] Laboratory - Chemistry and C hemistry - challengeOrdered By: Matteo Jonas on 10-16-2024 AST [Catalytic activity/Vol] 23 U/L <32 [facility] Laboratory - Hematology and Cell countsOrdered By: Matteo Jonas on 10-16-2024 Anisocytosis Ql (Bld) 1+ [facility] Lactate dehydrogenase (LDH) measurementOrdered By: Matteo Jonas on 10-16-2024 LDH [Catalytic activity/Vol] 218 U/L 84-246 [facility] MCV (mean corpuscular volume ) determinationOrdered By: Matteo Jonas on 10-16-2024 MCV (RBC) [Entitic vol] 96.3 fL 81-99 [facility] Mean corpuscular hemoglobin (MCH) determinationOrdered By: Matteo Jonas on 10-16-2024 MCH (RBC) [Entitic mass] 32.5 pg High 27.0-32.0 [facility] Mean corpuscular hemoglobin concentration (MCHC) determinationOrdered By: Matteo Jonas on 10-16-2024 MCHC (RBC) [Mass/Vol] 33.8 g/dL 32-36 [facility] Mean platelet volume determi nationOrdered By: Matteo Jonas on 10-16-2024 Platelet mean volume (Bld) [Entitic vol] 11.3 fL 6.2-12.0 [facility] Monocyte percentageOrdered B y: Matteo Jonas on 10-16-2024 Monocytes/100 WBC (Bld) 17.2 % High 0-10 [facility] Neutrophil percentageOrdered By: Matteo Jonas on 10-16-2024 Neutrophils/100 WBC (Bld) 48.4 % 47-70 [facility] No Panel InformationOrdered By: Matteo Jonas on 10-16-2024 1+ [facility] 23 U/L <32 [facility] Nucleated red blood cell per centageOrdered By: Matteo Jonas on 10-16-2024 Nucleated RBC/100 WBC (Bld) [Ratio] 0 % 0-5 [facility] Platelet countOrdered By: Hailee Jonas on 10-16-2024 Platelets (Bld) [#/Vol] 102 10*3/uL Low 150-450 [facility] Platelet estimateOrdered By: Matteo Jonas on 10-16-2024 Platelets LM Ql (Bld) SLT DEC ADEQ [facility] Potassium measurement (mass/ volume)Ordered By: Matteo Jonas on 10-16-2024 Potassium (Unsp spec) [Mass/Vol] 3.9 mmol/L 3.3-5.1 [facility] RBC Auto (Bld) [#/Vol]Ordere d By: Matteo Jonas on 10-16-2024 RBC (Bld) [#/Vol] 4.55 10*6/uL 4.2-5.4 [facility] Serum creatinine measurement (mass/volume)Ordered By: Matteo Jonas on 10-16-2024 Creatinine [Mass/Vol] 1.14 mg/dL 0.70-1.20 [facility] Serum globulin measurementOr dered By: Matteo Jonas on 10-16-2024 Globulin (S) [Mass/Vol] 2.1 g/dL Low 2.2-4.2 [facility] Serum glucose measurement (m ass/volume)Ordered By: Matteo Jonas on 10-16-2024 Glucose [Mass/Vol] 124 mg/dL High 70-99 [facility] Serum or plasma alanine hay otransferase (ALT) measurementOrdered By: Matteo Joans on 10-16-2024 ALT [Catalytic activity/Vol] 17 U/L <35 [facility] Serum or plasma albumin criss urement (mass/volume)Ordered By: Matteo Jonas on 10-16-2024 Albumin [Mass/Vol] 4.1 g/dL 3.4-4.8 [facility] Serum or plasma albumin/glob ulin mass ratioOrdered By: Matteo Jonas on 10-16-2024 Albumin/Globulin [Mass ratio] 2.0 {ratio} 0.9-2.4 [facility] Serum or plasma alkaline ezra sphatase measurementOrdered By: Matteo Jonas on 10-16-2024 ALP [Catalytic activity/Vol] 39 U/L 35-104 [facility] Serum or plasma calcium criss urement (mass/volume)Ordered By: Matteo Jonas on 10-16-2024 Calcium [Mass/Vol] 9.4 mg/dL 7.6-11.0 [facility] Serum or plasma urea nitroge n measurement (mass/volume)Ordered By: Matteo Jonas on 10-16-2024 Urea nitrogen [Mass/Vol] 30 mg/dL High 4-19 [facility] Sodium levelOrdered By: Malvin Jonas on 10-16-2024 Sodium [Moles/Vol] 136 mmol/L 133-145 [facility] Total proteinOrdered By: Victorino Jonas on 10-16-2024 Protein [Mass/Vol] 6.2 g/dL 5.9-8.4 [facility] White blood cell (WBC) count Ordered By: Matteo Jonas on 10-16-2024 WBC (Bld) [#/Vol] 2.9 10*3/uL Low 4.4-11.0 [facility] Absolute lymphocyte countOrd ered By: Leena Serra on 09-29-2024 Lymphocytes Auto (Unsp spec) [#/Vol] 1.07 10*3/uL 0.83-4.51 [facility] Absolute neutrophil countOrd ered By: Leena Serra on 09-29-2024 Neutrophils (Bld) [#/Vol] 1.1 10*3/uL Low 2.0-7.7 [facility] Anion gap in Serum or Plasma Ordered By: Leena Serra on 09-29-2024 Anion gap [Moles/Vol] 11 mmol/L 5-15 [facility] Automated lymphocyte count a s percentage of total leukocytesOrdered By: Leena Serra on 09-29-2024 Lymphocytes/100 WBC Auto (Unsp spec) 39.3 % - [facility] BUN/creatinine ratioOrdered By: [facility] on 09-29-2024 Urea nitrogen/Creatinine [Mass ratio] 27.3 mg/mg High 10- [facility] Basophil percentageOrdered B y: Leena Serra on 09-29-2024 Basophils/100 WBC (Bld) 0.7 % 0- [facility] Bilirubin, totalOrdered By: [facility] on 09-29-2024 Bilirubin [Mass/Vol] 0.80 mg/dL 0.00-1.30 [facility] CBC W/Diff, Automatedon 09-02 Absolute Lymph 1.07 X10 3/uL Normal 0.83-4.51 [facility] Comment on above: Performed By: #### L 500.4050, L100.0100 ####[facility] [address] [place], [address] Absolute Neut 1.1 X10 3/uL Low 2.0-7.7 [facility] Comment on above: Performed By: #### L 500.4050, L100.0100 ####[facility] [address] [place], [address] Basophils/100 WBC (Bld) 0.7 % Normal 0-1 [facility] Comment on above: Performed By: #### L 500.4050, L100.0100 ####[facility] [address] [place], [address] Eosinophils/100 WBC (Bld) 0.7 % Normal 0-5 [facility] Comment on above: Performed By: #### L 500.4050, L100.0100 ####[facility] [address] [place], [address] Erythrocyte distribution width (RBC) [Ratio] 17.4 % High 11.6-14.6 [facility] Comment on above: Performed By: #### L 500.4050, L100.0100 ####[facility] [address] [place], [address] Hematocrit (Bld) [Volume fraction] 44.0 % Normal 37-47 [facility] Comment on above: Performed By: #### L 500.4050, L100.0100 ####[facility] [address] [place], [address] Hemoglobin (Bld) [Mass/Vol] 14.5 g/dL Normal 12.0-15.0 [facility] Comment on above: Performed By: #### L 500.4050, L100.0100 ####[facility] [address] [place], [address] IG% 0.000 Normal 0.0-0.9 [facility] Comment on above: Result Comment: IG% - Immature Granulocytes (promyelocytes, myelocytes andmetamyelocytes) > 1% indicates that a LEFT SHIFT is Present. Performed By: #### L 500.4050, L100.0100 ####[facility] [address] [place], [address] Lymphocytes/100 WBC (Bld) 39.3 % Normal 19-41 [facility] Comment on above: Performed By: #### L 500.4050, L100.0100 ####[facility] [address] [place], [address] MCH (RBC) [Entitic mass] 31.5 pg Normal 27.0-32.0 [facility] Comment on above: Performed By: #### L 500.4050, L100.0100 ####[facility] [address] [place], [address] MCHC (RBC) [Mass/Vol] 33.0 g/dL Normal 32-36 [facility] Comment on above: Performed By: #### L 500.4050, L100.0100 ####[facility] [address] [place], [address] MCV (RBC) [Entitic vol] 95.7 fL Normal 81-99 [facility] Comment on above: Performed By: #### L 500.4050, L100.0100 ####[facility] [address] [place], [address] Monocytes/100 WBC (Bld) 19.9 % High 0-10 [facility] Comment on above: Performed By: #### L 500.4050, L100.0100 ####[facility] [address] [place], [address] Neutrophils/100 WBC (Bld) 39.4 % Low 47-70 [facility] Comment on above: Performed By: #### L 500.4050, L100.0100 ####[facility] [address] [place], [address] Nucleated RBC (Bld) [#/Vol] 0 10*3/uL Normal 0-5 [facility] Comment on above: Performed By: #### L 500.4050, L100.0100 ####[facility] [address] [place], [address] Platelet mean volume (Bld) [Entitic vol] 11.3 fL Normal 6.2-12.0 [facility] Comment on above: Performed By: #### L 500.4050, L100.0100 ####[facility] [address] [place], [address] Platelets (Bld) [#/Vol] 103 10*3/uL Low 150-450 [facility] Comment on above: Performed By: #### L 500.4050, L100.0100 ####[facility] [address] [place], [address] RBC (Bld) [#/Vol] 4.60 10*6/uL Normal 4.2-5.4 [facility] Comment on above: Performed By: #### L 500.4050, L100.0100 ####[facility] [address] [place], [address] RDW SD 60.5 fl High 35.1-43.9 [facility] Comment on above: Performed By: #### L 500.4050, L100.0100 ####[facility] [address] [place], [address] WBC (Bld) [#/Vol] 2.7 10*3/uL Low 4.4-11.0 [facility] Comment on above: Performed By: #### L 500.4050, L100.0100 ####[facility] [address] [place], [address] Carbon dioxide, total [Moles /volume] in Central venous bloodOrdered By: Leena Serra on 09-29-2024 CO2 [Moles/Vol] 22.7 mmol/L 21.0-32.0 [facility] Chloride assayOrdered By: Wisam Serra on 09-29-2024 Chloride [Moles/Vol] 101 mmol/L 98-108 [facility] Comprehensive Metabolic Prof ilon 09-29-2024 Albumin [Mass/Vol] 4.0 g/dL Normal 3.4-4.8 [facility] Comment on above: Performed By: #### L 500.4050, L100.0100 ####[facility] [address] [place], [address] Albumin/Globulin [Mass ratio] 1.8 {ratio} Normal 0.9-2.4 [facility] Comment on above: Performed By: #### L 500.4050, L100.0100 ####[facility] [address] [place], [address] ALK PHOS 50 U/L Normal 35-104 [facility] Comment on above: Performed By: #### L 500.4050, L100.0100 ####[facility] [address] [place], [address] ALT [Catalytic activity/Vol] 18 U/L Normal <=34 [facility] Comment on above: Performed By: #### L 500.4050, L100.0100 ####[facility] [address] [place], [address] AST [Catalytic activity/Vol] 24 U/L Normal <=31 [facility] Comment on above: Performed By: #### L 500.4050, L100.0100 ####[facility] [address] [place], [address] Bilirubin [Mass/Vol] 0.80 mg/dL Normal 0.00-1.30 [facility] Comment on above: Performed By: #### L 500.4050, L100.0100 ####[facility] [address] [place], [address] BUN/CRE 27.3 RATIO High 10-20 [facility] Comment on above: Performed By: #### L 500.4050, L100.0100 ####[facility] [address] [place], [address] Calcium [Mass/Vol] 9.4 mg/dL Normal 7.6-11.0 [facility] Comment on above: Performed By: #### L 500.4050, L100.0100 ####[facility] [address] [place], [address] Chloride [Moles/Vol] 101 mmol/L Normal 98-108 [facility] Comment on above: Performed By: #### L 500.4050, L100.0100 ####[facility] [address] [place], [address] CO2 [Moles/Vol] 22.7 mmol/L Normal 21.0-32.0 [facility] Comment on above: Performed By: #### L 500.4050, L100.0100 ####[facility] [address] [place], [address] Creatinine [Mass/Vol] 1.14 mg/dL Normal 0.70-1.20 [facility] Comment on above: Performed By: #### L 500.4050, L100.0100 ####[facility] [address] [place], [address] GAP 11 Normal 5-15 [facility] Comment on above: Performed By: #### L 500.4050, L100.0100 ####[facility] [address] [place], [address] GFR/1.73 sq M.predicted among non-blacks MDRD (S/P/Bld) [Vol rate/Area] 46 mL/min/{1.73_m2} Low >60 [facility] Comment on above: Result Comment: mL/m in/1.73m2 CKD-EPI Creatinine Equation (2020) Performed By: #### L 500.4050, L100.0100 ####[facility] [address] [place], [address] Globulin (S) [Mass/Vol] 2.2 g/dL Normal 2.2-4.2 [facility] Comment on above: Performed By: #### L 500.4050, L100.0100 ####[facility] [address] [place], [address] Glucose [Mass/Vol] 104 mg/dL High 70-99 [facility] Comment on above: Performed By: #### L 500.4050, L100.0100 ####[facility] [address] [place], [address] Potassium [Moles/Vol] 4.3 mmol/L Normal 3.3-5.1 [facility] Comment on above: Performed By: #### L 500.4050, L100.0100 ####[facility] [address] [place], [address] Sodium [Moles/Vol] 135 mmol/L Normal 133-145 [facility] Comment on above: Performed By: #### L 500.4050, L100.0100 ####[facility] [address] [place], [address] T PROT 6.2 g/dL Normal 5.9-8.4 [facility] Comment on above: Performed By: #### L 500.4050, L100.0100 ####[facility] [address] [place], [address] Urea nitrogen [Mass/Vol] 31 mg/dL High 4-19 [facility] Comment on above: Performed By: #### L 500.4050, L100.0100 ####[facility] [address] [place], [address] Eosinophil percentageOrdered By: Leena Serra on 09-29-2024 Eosinophils/100 WBC (Bld) 0.7 % 0-5 [facility] Erythrocyte distribution wid th ratioOrdered By: Leena Serra on 09-29-2024 Erythrocyte distribution width (RBC) [Ratio] 17.4 % High 11.6-14.6 [facility] Erythrocyte distribution wid th standard deviationOrdered By: Leena Serra on 09-29-2024 Erythrocyte distribution width (RBC) [Ratio] 60.5 fl High 35.1-43.9 [facility] Glomerular filtration rate ( GFR) estimation/1.73 sq m using serum, plasma, or whole bOrdered By: Leena Serra on 09-29-2024 GFR/1.73 sq M.predicted among non-blacks MDRD (S/P/Bld) [Vol rate/Area] 46 mL/min/{1.73_m2} Low >60 [facility] Comment on above: mL/min/1.73m2 CKD-EP I Creatinine Equation (2020) Hematocrit Auto (Bld) [Volum e fraction]Ordered By: Leena Serra on 09-29-2024 Hematocrit (Bld) [Volume fraction] 44.0 % 37-47 [facility] Hemoglobin measurementOrdere d By: Leena Serra on 09-29-2024 Hemoglobin (Bld) [Mass/Vol] 14.5 g/dL 12.0-15.0 [facility] Immature granulocytes/100 WB C Auto (Bld)Ordered By: Leena Serra on 09-29-2024 Immature granulocytes/100 WBC (Bld) 0.000 % 0.0-0.9 [facility] Comment on above: IG% - Immature Granu locytes (promyelocytes, myelocytes and metamyelocytes) > 1% indicates that a LEFT SHIFT is Present. Laboratory - Chemistry and C hemistry - challengeOrdered By: Leena Serra on 09-29-2024 AST [Catalytic activity/Vol] 24 U/L <32 [facility] MCV (mean corpuscular volume ) determinationOrdered By: Leena Serra on 09-29-2024 MCV (RBC) [Entitic vol] 95.7 fL 81-99 [facility] Mean corpuscular hemoglobin (MCH) determinationOrdered By: Leena Serra on 09-29-2024 MCH (RBC) [Entitic mass] 31.5 pg 27.0-32.0 [facility] Mean corpuscular hemoglobin concentration (MCHC) determinationOrdered By: Leena Serra on 09-29-2024 MCHC (RBC) [Mass/Vol] 33.0 g/dL 32-36 [facility] Mean platelet volume determi nationOrdered By: Leena Serra on 09-29-2024 Platelet mean volume (Bld) [Entitic vol] 11.3 fL 6.2-12.0 [facility] Monocyte percentageOrdered B y: Leena Serra on 09-29-2024 Monocytes/100 WBC (Bld) 19.9 % High 0-10 [facility] Neutrophil percentageOrdered By: Leena Serra on 09-29-2024 Neutrophils/100 WBC (Bld) 39.4 % Low 47-70 [facility] No Panel InformationOrdered By: Leena Serra on 09-29-2024 24 U/L <32 [facility] Nucleated red blood cell per centageOrdered By: Leena Serra on 09-29-2024 Nucleated RBC/100 WBC (Bld) [Ratio] 0 % 0-5 [facility] Platelet countOrdered By: Wisam Serra on 09-29-2024 Platelets (Bld) [#/Vol] 103 10*3/uL Low 150-450 [facility] Potassium measurement (mass/ volume)Ordered By: Leena Serra on 09-29-2024 Potassium (Unsp spec) [Mass/Vol] 4.3 mmol/L 3.3-5.1 [facility] RBC Auto (Bld) [#/Vol]Ordere d By: Leena Serra on 09-29-2024 RBC (Bld) [#/Vol] 4.60 10*6/uL 4.2-5.4 [facility] Serum creatinine measurement (mass/volume)Ordered By: Leena Serra on 09-29-2024 Creatinine [Mass/Vol] 1.14 mg/dL 0.70-1.20 [facility] Serum globulin measurementOr dered By: Leena Serra on 09-29-2024 Globulin (S) [Mass/Vol] 2.2 g/dL 2.2-4.2 [facility] Serum glucose measurement (m ass/volume)Ordered By: Leena Serra on 09-29-2024 Glucose [Mass/Vol] 104 mg/dL High 70-99 [facility] Serum or plasma alanine hay otransferase (ALT) measurementOrdered By: Leena Serra on 09-29-2024 ALT [Catalytic activity/Vol] 18 U/L <35 [facility] Serum or plasma albumin criss urement (mass/volume)Ordered By: Leena Serra on 09-29-2024 Albumin [Mass/Vol] 4.0 g/dL 3.4-4.8 [facility] Serum or plasma albumin/glob ulin mass ratioOrdered By: Leena Serra on 09-29-2024 Albumin/Globulin [Mass ratio] 1.8 {ratio} 0.9-2.4 [facility] Serum or plasma alkaline ezra sphatase measurementOrdered By: Leena Serra on 09-29-2024 ALP [Catalytic activity/Vol] 50 U/L 35-104 [facility] Serum or plasma calcium criss urement (mass/volume)Ordered By: Leena Serra on 09-29-2024 Calcium [Mass/Vol] 9.4 mg/dL 7.6-11.0 [facility] Serum or plasma urea nitroge n measurement (mass/volume)Ordered By: Leena Serra on 09-29-2024 Urea nitrogen [Mass/Vol] 31 mg/dL High 4- [facility] Sodium levelOrdered By: Ara Serra on 09-29-2024 Sodium [Moles/Vol] 135 mmol/L 133-145 [facility] Total proteinOrdered By: Yolette Serra on 09-29-2024 Protein [Mass/Vol] 6.2 g/dL 5.9-8.4 [facility] White blood cell (WBC) count Ordered By: Leena Serra on 09-29-2024 WBC (Bld) [#/Vol] 2.7 10*3/uL Low 4.4-11.0 [facility] Cardiology Visit Reporton Cardiology Visit Report Normal [facility] Anion gap in Serum or Plasma Ordered By: Sharad Londono on 07-28-2024 Anion gap [Moles/Vol] 16 mmol/L High - [facility] BUN/creatinine ratioOrdered By: Sharad Londono on 07-28-2024 Urea nitrogen/Creatinine [Mass ratio] 20.0 mg/mg - [facility] Basic Metabolic Profile (BMP )on 07-28-2024 BUN/CRE 20.0 RATIO Normal 02-19 [facility] Comment on above: Performed By: #### L 500.2500 ####[facility] [address] [place], [place], [id number] Calcium [Mass/Vol] 8.9 mg/dL Normal 7.6-11.0 [facility] Comment on above: Performed By: #### L 500.2500 ####[facility] [address] [place], [address] Chloride [Moles/Vol] 99 mmol/L Normal 98-108 [facility] Comment on above: Performed By: #### L 500.2500 ####[facility] [address] [place], [address] CO2 [Moles/Vol] 21.1 mmol/L Normal 21.0-32.0 [facility] Comment on above: Performed By: #### L 500.2500 ####[facility] [address] [place], [address] Creatinine [Mass/Vol] 1.05 mg/dL Normal 0.70-1.20 [facility] Comment on above: Performed By: #### L 500.2500 ####[facility] [address] [place], [address] GAP 16 High 5-15 [facility] Comment on above: Performed By: #### L 500.2500 ####[facility] [address] [place], [address] GFR/1.73 sq M.predicted among non-blacks MDRD (S/P/Bld) [Vol rate/Area] 51 mL/min/{1.73_m2} Low >60 [facility] Comment on above: Result Comment: mL/m in/1.73m2 CKD-EPI Creatinine Equation (2020) Performed By: #### L 500.2500 ####[facility] [address] [place], [address] Glucose [Mass/Vol] 102 mg/dL High 70-99 [facility] Comment on above: Performed By: #### L 500.2500 ####[facility] [address] [place], [address] Potassium [Moles/Vol] 4.0 mmol/L Normal 3.3-5.1 [facility] Comment on above: Result Comment: Hemo lysis present, Results??could be affected.?? Performed By: #### L 500.2500 ####[facility] [address] [place], [address] Sodium [Moles/Vol] 136 mmol/L Normal 133-145 [facility] Comment on above: Performed By: #### L 500.2500 ####[facility] [address] [place], [address] Urea nitrogen [Mass/Vol] 21 mg/dL High 4-19 [facility] Comment on above: Performed By: #### L 500.2500 ####[facility] [address] [place], [place], [id number] Carbon dioxide, total [Moles /volume] in Central venous bloodOrdered By: Sharad Londono on 07-28-2024 CO2 [Moles/Vol] 21.1 mmol/L 21.0-32.0 [facility] Chloride assayOrdered By: Hailee Londono on 07-28-2024 Chloride [Moles/Vol] 99 mmol/L 98-108 [facility] GFR/1.73 sq M.predicted mario g non-blacks MDRD (S/P/Bld) [Vol rate/Area]Ordered By: Sharad Londono on 07-28-2024 Estimated GFR (MDRD) Non-Af Amer 51 Low >60 [facility] Comment on above: mL/min/1.73m2 CKD-EP I Creatinine Equation (2020) Glomerular filtration rate ( GFR) estimation/1.73 sq m using serum, plasma, or whole bOrdered By: Sharad Londono on 07-28-2024 GFR/1.73 sq M.predicted among non-blacks MDRD (S/P/Bld) [Vol rate/Area] 51 mL/min/{1.73_m2} Low >60 [facility] Comment on above: mL/min/1.73m2 CKD-EP I Creatinine Equation (2020) Potassium (Unsp spec) [Mass/ Vol]Ordered By: Sharad Londono on 07-28-2024 Potassium [Moles/Vol] 4.0 mmol/L 3.3-5.1 [facility] Comment on above: Hemolysis present, R esults could be affected. Potassium measurement (mass/ volume)Ordered By: Sharad Londono on 07-28-2024 Potassium (Unsp spec) [Mass/Vol] 4.0 mmol/L 3.3-5.1 [facility] Comment on above: Hemolysis present, R esults could be affected. Serum creatinine measurement (mass/volume)Ordered By: Sharad Londono on 07-28-2024 Creatinine [Mass/Vol] 1.05 mg/dL 0.70-1.20 [facility] Serum glucose measurement (m ass/volume)Ordered By: Sharad Londono on 07-28-2024 Glucose [Mass/Vol] 102 mg/dL High 70-99 [facility] Serum or plasma calcium criss urement (mass/volume)Ordered By: Sharad Londono on 07-28-2024 Calcium [Mass/Vol] 8.9 mg/dL 7.6-11.0 [facility] Serum or plasma urea nitroge n measurement (mass/volume)Ordered By: Sharad Londono on 07-28-2024 Urea nitrogen [Mass/Vol] 21 mg/dL High 4-19 [facility] Sodium levelOrdered By: Sharad Londono on 07-28-2024 Sodium [Moles/Vol] 136 mmol/L 133-145 [facility] Absolute lymphocyte countOrd ered By: Anant Cooper on 07-23-2024 Lymphocytes Auto (Unsp spec) [#/Vol] 0.73 10*3/uL Low 0.83-4.51 [facility] Absolute neutrophil countOrd ered By: Anant Cooper on 07-23-2024 Neutrophils (Bld) [#/Vol] 10.8 10*3/uL High 2.0-7.7 [facility] Anion gap in Serum or Plasma Ordered By: Anant Cooper on 07-23-2024 Anion gap [Moles/Vol] 15 mmol/L 5-15 [facility] Automated lymphocyte count a s percentage of total leukocytesOrdered By: Anant Cooper on 07-23-2024 Lymphocytes/100 WBC Auto (Unsp spec) 5.7 % Low 19-41 [facility] BUN/creatinine ratioOrdered By: Anant Anneo on 07-23-2024 Urea nitrogen/Creatinine [Mass ratio] 33.3 mg/mg High 10-20 [facility] Basic Metabolic Profile (BMP )on 07-23-2024 BUN/CRE 33.3 RATIO High 10-20 [facility] Comment on above: Performed By: #### L 100.0100, L500.2500 ####[facility] [address] [place], [address] Calcium [Mass/Vol] 9.2 mg/dL Normal 7.6-11.0 [facility] Comment on above: Performed By: #### L 100.0100, L500.2500 ####[facility] [address] [place], [address] Chloride [Moles/Vol] 94 mmol/L Low 98-108 [facility] Comment on above: Performed By: #### L 100.0100, L500.2500 ####[facility] [address] [place], [address] CO2 [Moles/Vol] 18.3 mmol/L Low 21.0-32.0 [facility] Comment on above: Performed By: #### L 100.0100, L500.2500 ####[facility] [address] [place], [address] Creatinine [Mass/Vol] 1.23 mg/dL High 0.70-1.20 [facility] Comment on above: Performed By: #### L 100.0100, L500.2500 ####[facility] [address] [place], [address] ECRCL 29.00 ml/min Low 50-250 [facility] Comment on above: Performed By: #### L 100.0100, L500.2500 ####[facility] [address] [place], [address] GAP 15 Normal 5-15 [facility] Comment on above: Performed By: #### L 100.0100, L500.2500 ####[facility] [address] [place], [address] GFR/1.73 sq M.predicted among non-blacks MDRD (S/P/Bld) [Vol rate/Area] 43 mL/min/{1.73_m2} Low >60 [facility] Comment on above: Result Comment: mL/m in/1.73m2 CKD-EPI Creatinine Equation (2020) Performed By: #### L 100.0100, L500.2500 ####[facility] [address] [place], [address] Glucose [Mass/Vol] 109 mg/dL High 70-99 [facility] Comment on above: Performed By: #### L 100.0100, L500.2500 ####[facility] [address] [place], [address] Potassium [Moles/Vol] 4.7 mmol/L Normal 3.3-5.1 [facility] Comment on above: Performed By: #### L 100.0100, L500.2500 ####[facility] [address] [place], [address] Sodium [Moles/Vol] 128 mmol/L Low 133-145 [facility] Comment on above: Performed By: #### L 100.0100, L500.2500 ####[facility] [address] [place], [address] Urea nitrogen [Mass/Vol] 41 mg/dL High 4-19 [facility] Comment on above: Performed By: #### L 100.0100, L500.2500 ####[facility] [address] [place], [address] Basophil percentageOrdered B y: Anant Cooper on 07-23-2024 Basophils/100 WBC (Bld) 0.2 % 0-1 [facility] Bilirubin Test strip Ql (U)O rdered By: Anant Cooper on 07-23-2024 Bilirubin Ql (U) Negative Negative [facility] Brain/Head without Contrasto n 07-23-2024 Brain/Head without Contrast Normal [facility] CBC W/Diff, Automatedon 07-02 Absolute Lymph 0.73 X10 3/uL Low 0.83-4.51 [facility] Comment on above: Performed By: #### L 100.0100, L500.2500 ####[facility] [address] [place], [address] Absolute Neut 10.8 X10 3/uL High 2.0-7.7 [facility] Comment on above: Performed By: #### L 100.0100, L500.2500 ####[facility] [address] [place], [address] Basophils/100 WBC (Bld) 0.2 % Normal 0-1 [facility] Comment on above: Performed By: #### L 100.0100, L500.2500 ####[facility] [address] [place], [address] Eosinophils/100 WBC (Bld) 0.0 % Normal 0-5 [facility] Comment on above: Performed By: #### L 100.0100, L500.2500 ####[facility] [address] [place], [address] Erythrocyte distribution width (RBC) [Ratio] 14.4 % Normal 11.6-14.6 [facility] Comment on above: Performed By: #### L 100.0100, L500.2500 ####[facility] [address] [place], [address] Hematocrit (Bld) [Volume fraction] 47.1 % High 37-47 [facility] Comment on above: Performed By: #### L 100.0100, L500.2500 ####[facility] [address] [place], [address] Hemoglobin (Bld) [Mass/Vol] 15.9 g/dL High 12.0-15.0 [facility] Comment on above: Performed By: #### L 100.0100, L500.2500 ####[facility] [address] [place], [address] IG% 0.500 Normal 0.0-0.9 [facility] Comment on above: Result Comment: IG% - Immature Granulocytes (promyelocytes, myelocytes andmetamyelocytes) > 1% indicates that a LEFT SHIFT is Present. Performed By: #### L 100.0100, L500.2500 ####[facility] [address] [place], [address] Lymphocytes/100 WBC (Bld) 5.7 % Low 19-41 [facility] Comment on above: Performed By: #### L 100.0100, L500.2500 ####[facility] [address] [place], [address] MCH (RBC) [Entitic mass] 32.0 pg Normal 27.0-32.0 [facility] Comment on above: Performed By: #### L 100.0100, L500.2500 ####[facility] [address] [place], [address] MCHC (RBC) [Mass/Vol] 33.8 g/dL Normal 32-36 [facility] Comment on above: Performed By: #### L 100.0100, L500.2500 ####[facility] [address] [place], [address] MCV (RBC) [Entitic vol] 94.8 fL Normal 81-99 [facility] Comment on above: Performed By: #### L 100.0100, L500.2500 ####[facility] [address] [place], [address] Monocytes/100 WBC (Bld) 9.5 % Normal 0-10 [facility] Comment on above: Performed By: #### L 100.0100, L500.2500 ####[facility] [address] [place], [address] Neutrophils/100 WBC (Bld) 84.1 % High 47-70 [facility] Comment on above: Performed By: #### L 100.0100, L500.2500 ####[facility] [address] [place], [address] Nucleated RBC (Bld) [#/Vol] 0 10*3/uL Normal 0-5 [facility] Comment on above: Performed By: #### L 100.0100, L500.2500 ####[facility] [address] [place], [address] Platelet mean volume (Bld) [Entitic vol] 11.6 fL Normal 6.2-12.0 [facility] Comment on above: Performed By: #### L 100.0100, L500.2500 ####[facility] [address] [place], [address] Platelets (Bld) [#/Vol] 111 10*3/uL Low 150-450 [facility] Comment on above: Performed By: #### L 100.0100, L500.2500 ####[facility] [address] [place], [address] RBC (Bld) [#/Vol] 4.97 10*6/uL Normal 4.2-5.4 [facility] Comment on above: Performed By: #### L 100.0100, L500.2500 ####[facility] [address] [place], [address] RDW SD 50.2 fl High 35.1-43.9 [facility] Comment on above: Performed By: #### L 100.0100, L500.2500 ####[facility] [address] [place], [address] WBC (Bld) [#/Vol] 12.9 10*3/uL High 4.4-11.0 [facility] Comment on above: Performed By: #### L 100.0100, L500.2500 ####[facility] [address] [place], [address] Carbon dioxide, total [Moles /volume] in Central venous bloodOrdered By: Anant Cooper on 07-23-2024 CO2 [Moles/Vol] 18.3 mmol/L Low 21.0-32.0 [facility] Chloride assayOrdered By: Ug o Cooper on 07-23-2024 Chloride [Moles/Vol] 94 mmol/L Low 98-108 [facility] Emergency Department Summary on 07-23-2024 Emergency Department Summary Normal [facility] Eosinophil percentageOrdered By: Anant Cooper on 07-23-2024 Eosinophils/100 WBC (Bld) 0.0 % 0-5 [facility] Epithelial cells.squamous LM Ql (Urine sed)Ordered By: Anant Cooper on 07-23-2024 Epithelial cells.squamous LM.HPF (Urine sed) [#/Area] 0 /[HPF] 5-10 [facility] Erythrocyte distribution wid th ratioOrdered By: Anant Cooper on 07-23-2024 Erythrocyte distribution width (RBC) [Ratio] 14.4 % 11.6-14.6 [facility] Erythrocyte distribution wid th standard deviationOrdered By: Anant Cooper on 07-23-2024 Erythrocyte distribution width (RBC) [Entitic vol] 50.2 fL High 35.1-43.9 [facility] Erythrocyte distribution width (RBC) [Ratio] 50.2 fl High 35.1-43.9 [facility] Estimation of creatinine douglas aranceOrdered By: Anant Cooper on 07-23-2024 Estimated Creatinine Clearance Calc 29.00 ml/min Low 50-250 [facility] GFR/1.73 sq M.predicted mario g non-blacks MDRD (S/P/Bld) [Vol rate/Area]Ordered By: Anant Cooper on 07-23-2024 Estimated GFR (MDRD) Non-Af Amer 43 Low >60 [facility] Comment on above: mL/min/1.73m2 CKD-EP I Creatinine Equation (2020) Glomerular filtration rate ( GFR) estimation/1.73 sq m using serum, plasma, or whole bOrdered By: Anant Cooper on 07-23-2024 GFR/1.73 sq M.predicted among non-blacks MDRD (S/P/Bld) [Vol rate/Area] 43 mL/min/{1.73_m2} Low >60 [facility] Comment on above: mL/min/1.73m2 CKD-EP I Creatinine Equation (2020) Glucose Ql (U)Ordered By: Shyla Cooper on 07-23-2024 Glucose (U) [Mass/Vol] 1000 mg/dL High Normal [facility] Hematocrit Auto (Bld) [Volum e fraction]Ordered By: Anant Cooper on 07-23-2024 Hematocrit (Bld) [Volume fraction] 47.1 % High 37-47 [facility] Hemoglobin measurementOrdere d By: Anant Cooper on 07-23-2024 Hemoglobin (Bld) [Mass/Vol] 15.9 g/dL High 12.0-15.0 [facility] Immature granulocytes/100 WB C Auto (Bld)Ordered By: Anant Cooper on 07-23-2024 Immature granulocytes/100 WBC (Bld) 0.500 % 0.0-0.9 [facility] Comment on above: IG% - Immature Granu locytes (promyelocytes, myelocytes and metamyelocytes) > 1% indicates that a LEFT SHIFT is Present. Ketones Test strip Ql (U)Ord ered By: Anant Cooper on 07-23-2024 Ketones Ql (U) Negative Negative [facility] Lymphocytes Auto (Unsp spec) [#/Vol]Ordered By: Anant Cooper on 07-23-2024 Lymphocytes (Bld) [#/Vol] 0.73 10*3/uL Low 0.83-4.51 [facility] Lymphocytes/100 WBC Auto (Un sp spec)Ordered By: Anant Cooper on 07-23-2024 Lymphocytes/100 WBC (Bld) 5.7 % Low 19-41 [facility] MCV (mean corpuscular volume ) determinationOrdered By: Anant Cooper on 07-23-2024 MCV (RBC) [Entitic vol] 94.8 fL 81-99 [facility] Mean corpuscular hemoglobin (MCH) determinationOrdered By: Anant Cooper on 07-23-2024 MCH (RBC) [Entitic mass] 32.0 pg 27.0-32.0 [facility] Mean corpuscular hemoglobin concentration (MCHC) determinationOrdered By: Anant Cooper on 07-23-2024 MCHC (RBC) [Mass/Vol] 33.8 g/dL 32-36 [facility] Mean platelet volume determi nationOrdered By: Anant Cooper on 07-23-2024 Platelet mean volume (Bld) [Entitic vol] 11.6 fL 6.2-12.0 [facility] Microscopic analysis of urin e for red blood cells (RBC)Ordered By: Anant Cooper on 07-23-2024 Microscopic analysis of urine for red blood cells (RBC) 0-5 SEEN /hpf 0-5 [facility] Urine RBC 0-5 SEEN /hpf 0-5 [facility] Monocyte percentageOrdered B y: Anant Cooper on 07-23-2024 Monocytes/100 WBC (Bld) 9.5 % 0-10 [facility] Mucus LM Ql (Urine sed)Order ed By: Anant Cooper on 07-23-2024 Mucus Ql (Urine sed) 0 SEEN /hpf [facility] Neutrophil percentageOrdered By: Anant Cooper on 07-23-2024 Neutrophils/100 WBC (Bld) 84.1 % High 47-70 [facility] Nitrite Test strip Ql (U)Ord ered By: Anant Cooper on 07-23-2024 Nitrite Ql (U) Negative Negative [facility] Nucleated red blood cell per centageOrdered By: Anant Cooper on 07-23-2024 Nucleated RBC/100 WBC (Bld) [Ratio] 0 % 0-5 [facility] Platelet countOrdered By: Shyla Cooper on 07-23-2024 Platelets (Bld) [#/Vol] 111 10*3/uL Low 150-450 [facility] Potassium (Unsp spec) [Mass/ Vol]Ordered By: Anant Cooper on 07-23-2024 Potassium [Moles/Vol] 4.7 mmol/L 3.3-5.1 [facility] Potassium measurement (mass/ volume)Ordered By: Anant Cooper on 07-23-2024 Potassium (Unsp spec) [Mass/Vol] 4.7 mmol/L 3.3-5.1 [facility] Protein Test strip Ql (U)Ord ered By: Anant Cooper on 07-23-2024 Protein Ql (U) 30 mg/dl High Negative [facility] RBC Auto (Bld) [#/Vol]Ordere d By: Anant Cooper on 07-23-2024 RBC (Bld) [#/Vol] 4.97 10*6/uL 4.2-5.4 [facility] Serum creatinine measurement (mass/volume)Ordered By: Anant Cooper on 07-23-2024 Creatinine [Mass/Vol] 1.23 mg/dL High 0.70-1.20 [facility] Serum glucose measurement (m ass/volume)Ordered By: Anantkarla Cooper on 07-23-2024 Glucose [Mass/Vol] 109 mg/dL High 70-99 [facility] Serum or plasma calcium criss urement (mass/volume)Ordered By: Anant Cooper on 07-23-2024 Calcium [Mass/Vol] 9.2 mg/dL 7.6-11.0 [facility] Serum or plasma urea nitroge n measurement (mass/volume)Ordered By: Anant Cooper on 07-23-2024 Urea nitrogen [Mass/Vol] 41 mg/dL High 4-19 [facility] Sodium levelOrdered By: Anantkarla Cooper on 07-23-2024 Sodium [Moles/Vol] 128 mmol/L Low 133-145 [facility] Spine Cervical without Contr ason 07-23-2024 Spine Cervical without Contras Normal [facility] Squamous epithelial cells de tection in urine sediment by light microscopyOrdered By: Anant Cooper on 07-23-2024 Epithelial cells.squamous LM Ql (Urine sed) 0-5 SEEN /hpf 5-10 [facility] Urinalysis, Completeon 07-23 EPI,SQUAMOUS 0-5 SEEN Normal 5-10 [facility] Comment on above: Order Comment: Strai ght cath if not able to stand to perform CCCLEAN CATCH Performed By: #### L 400.0001 ####[facility] [address] [place], [address] RBC 0-5 SEEN Normal 0-5 [facility] Comment on above: Order Comment: Strai ght cath if not able to stand to perform CCCLEAN CATCH Performed By: #### L 400.0001 ####[facility] [address] [place], [address] BACTERIA 0 SEEN Normal None Seen [facility] Comment on above: Order Comment: Strai ght cath if not able to stand to perform CCCLEAN CATCH Performed By: #### L 400.0001 ####[facility] [address] [place], [address] Mucus Ql (Urine sed) 0 SEEN Normal [facility] Comment on above: Order Comment: Strai ght cath if not able to stand to perform CCCLEAN CATCH Performed By: #### L 400.0001 ####[facility] [address] [place], [address] WBC 0 SEEN Normal 0-5 [facility] Comment on above: Order Comment: Strai ght cath if not able to stand to perform CCCLEAN CATCH Performed By: #### L 400.0001 ####[facility] [address] [place], [address] Urine blood detectionOrdered By: Anant Cooper on 07-23-2024 Urine Occult Blood 25 /ul High Negative [facility] Urine clarityOrdered By: Anant Cooper on 07-23-2024 Clarity (U) Clear [facility] Urine color determinationOrd ered By: Anant Cooper on 07-23-2024 Color (U) Yellow [facility] Urine glucose detectionOrder ed By: Anant Kenneth on 07-23-2024 Glucose Ql (U) 1000 mg/dl High Normal [facility] Urine leukocyte esterase det ection by dipstickOrdered By: Anant Cooper on 07-23-2024 Leukocyte esterase Test strip Ql (U) Negative Negative [facility] Urine pHOrdered By: Anant cuenca on 07-23-2024 pH (U) 5.0 [pH] 5.0 - 8.0 [facility] Urine sediment bacteria coun t by microscopy (number/high power field)Ordered By: Anant Cooper on 07-23-2024 Bacteria LM.HPF (Urine sed) [#/Area] 0 /[HPF] None Seen [facility] Urine specific gravity measu rementOrdered By: Anantkarla Cooper on 07-23-2024 Specific gravity (U) [Rel density] 1.015 1.002-1.03 0 [facility] Urine urobilinogen measureme ntOrdered By: Anant Cooper on 07-23-2024 Urobilinogen Ql (U) Normal mg/dl Normal [facility] Urobilinogen Ql (U)Ordered B y: Anant Cooper on 07-23-2024 Urine Urobilinogen Normal mg/dl Normal [facility] White blood cell (WBC) count Ordered By: Anant Cooper on 07-23-2024 WBC (Bld) [#/Vol] 12.9 10*3/uL High 4.4-11.0 [facility] White blood cell countOrdere d By: Anant Cooper on 07-23-2024 Urine WBC 0 SEEN /hpf 0-5 [facility] White blood cell count 0 SEEN /hpf 0-5 [facility] Absolute lymphocyte countOrd ered By: Holli Gaona on 07-22-2024 Lymphocytes Auto (Unsp spec) [#/Vol] 0.69 10*3/uL Low 0.83-4.51 [facility] Absolute neutrophil countOrd ered By: Holli Gaona on 07-22-2024 Neutrophils (Bld) [#/Vol] 6.2 10*3/uL 2.0-7.7 [facility] Anion gap in Serum or Plasma Ordered By: Holli Gaona on 07-22-2024 Anion gap [Moles/Vol] 15 mmol/L 5-15 [facility] Automated lymphocyte count a s percentage of total leukocytesOrdered By: Holli Gaona on 07-22-2024 Lymphocytes/100 WBC Auto (Unsp spec) 9.2 % Low 19-41 [facility] BUN/creatinine ratioOrdered By: Holli Gaona on 07-22-2024 Urea nitrogen/Creatinine [Mass ratio] 27.6 mg/mg High 10 [facility] Basic Metabolic Profile (BMP )on 07-22-2024 BUN/CRE 27.6 RATIO High 10- [facility] Comment on above: Performed By: #### L 503.7505, L100.0100, L500.2500 ####[facility] [address] [place], [address] Calcium [Mass/Vol] 9.2 mg/dL Normal 7.6-11.0 [facility] Comment on above: Performed By: #### L 503.7505, L100.0100, L500.2500 ####[facility] [address] [place], [address] Chloride [Moles/Vol] 95 mmol/L Low 98-108 [facility] Comment on above: Performed By: #### L 503.7505, L100.0100, L500.2500 ####[facility] [address] [place], [address] CO2 [Moles/Vol] 20.1 mmol/L Low 21.0-32.0 [facility] Comment on above: Performed By: #### L 503.7505, L100.0100, L500.2500 ####[facility] [address] [place], [address] Creatinine [Mass/Vol] 1.17 mg/dL Normal 0.70-1.20 [facility] Comment on above: Performed By: #### L 503.7505, L100.0100, L500.2500 ####[facility] [address] [place], [address] GAP 15 Normal 5-15 [facility] Comment on above: Performed By: #### L 503.7505, L100.0100, L500.2500 ####[facility] [address] [place], [address] GFR/1.73 sq M.predicted among non-blacks MDRD (S/P/Bld) [Vol rate/Area] 45 mL/min/{1.73_m2} Low >60 [facility] Comment on above: Result Comment: mL/m in/1.73m2 CKD-EPI Creatinine Equation (2020) Performed By: #### L 503.7505, L100.0100, L500.2500 ####[facility] [address] [place], [address] Glucose [Mass/Vol] 182 mg/dL High 70-99 [facility] Comment on above: Performed By: #### L 503.7505, L100.0100, L500.2500 ####[facility] [address] [place], [address] Potassium [Moles/Vol] 4.9 mmol/L Normal 3.3-5.1 [facility] Comment on above: Performed By: #### L 503.7505, L100.0100, L500.2500 ####[facility] [address] [place], [address] Sodium [Moles/Vol] 130 mmol/L Low 133-145 [facility] Comment on above: Performed By: #### L 503.7505, L100.0100, L500.2500 ####[facility] [address] [place], [address] Urea nitrogen [Mass/Vol] 32 mg/dL High 4-19 [facility] Comment on above: Performed By: #### L 503.7505, L100.0100, L500.2500 ####[facility] [address] [place], [address] Basophil percentageOrdered B y: Holli Gaona on 07-22-2024 Basophils/100 WBC (Bld) 0.4 % 0-1 [facility] CBC W/Diff, Automatedon 07-02 Absolute Lymph 0.69 X10 3/uL Low 0.83-4.51 [facility] Comment on above: Performed By: #### L 503.7505, L100.0100, L500.2500 ####[facility] [address] [place], [address] Absolute Neut 6.2 X10 3/uL Normal 2.0-7.7 [facility] Comment on above: Performed By: #### L 503.7505, L100.0100, L500.2500 ####[facility] [address] [place], [address] Basophils/100 WBC (Bld) 0.4 % Normal 0-1 [facility] Comment on above: Performed By: #### L 503.7505, L100.0100, L500.2500 ####[facility] [address] [place], [address] Eosinophils/100 WBC (Bld) 0.3 % Normal 0-5 [facility] Comment on above: Performed By: #### L 503.7505, L100.0100, L500.2500 ####[facility] [address] [place], [address] Erythrocyte distribution width (RBC) [Ratio] 14.3 % Normal 11.6-14.6 [facility] Comment on above: Performed By: #### L 503.7505, L100.0100, L500.2500 ####[facility] [address] [place], [address] Hematocrit (Bld) [Volume fraction] 48.4 % High 37-47 [facility] Comment on above: Performed By: #### L 503.7505, L100.0100, L500.2500 ####[facility] [address] [place], [address] Hemoglobin (Bld) [Mass/Vol] 16.1 g/dL High 12.0-15.0 [facility] Comment on above: Performed By: #### L 503.7505, L100.0100, L500.2500 ####[facility] [address] [place], [address] IG% 0.300 Normal 0.0-0.9 [facility] Comment on above: Result Comment: IG% - Immature Granulocytes (promyelocytes, myelocytes andmetamyelocytes) > 1% indicates that a LEFT SHIFT is Present. Performed By: #### L 503.7505, L100.0100, L500.2500 ####[facility] [address] [place], [address] Lymphocytes/100 WBC (Bld) 9.2 % Low 19-41 [facility] Comment on above: Performed By: #### L 503.7505, L100.0100, L500.2500 ####[facility] [address] [place], [address] MCH (RBC) [Entitic mass] 32.1 pg High 27.0-32.0 [facility] Comment on above: Performed By: #### L 503.7505, L100.0100, L500.2500 ####[facility] [address] [place], [address] MCHC (RBC) [Mass/Vol] 33.3 g/dL Normal 32-36 [facility] Comment on above: Performed By: #### L 503.7505, L100.0100, L500.2500 ####[facility] [address] [place], [address] MCV (RBC) [Entitic vol] 96.6 fL Normal 81-99 [facility] Comment on above: Performed By: #### L 503.7505, L100.0100, L500.2500 ####[facility] [address] [place], [address] Monocytes/100 WBC (Bld) 8.1 % Normal 0-10 [facility] Comment on above: Performed By: #### L 503.7505, L100.0100, L500.2500 ####[facility] [address] [place], [address] Neutrophils/100 WBC (Bld) 81.7 % High 47-70 [facility] Comment on above: Performed By: #### L 503.7505, L100.0100, L500.2500 ####[facility] [address] [place], [address] Nucleated RBC (Bld) [#/Vol] 0 10*3/uL Normal 0-5 [facility] Comment on above: Performed By: #### L 503.7505, L100.0100, L500.2500 ####[facility] [address] [place], [address] Platelet mean volume (Bld) [Entitic vol] 11.2 fL Normal 6.2-12.0 [facility] Comment on above: Performed By: #### L 503.7505, L100.0100, L500.2500 ####[facility] [address] [place], [address] Platelets (Bld) [#/Vol] 122 10*3/uL Low 150-450 [facility] Comment on above: Performed By: #### L 503.7505, L100.0100, L500.2500 ####[facility] [address] [place], [address] RBC (Bld) [#/Vol] 5.01 10*6/uL Normal 4.2-5.4 [facility] Comment on above: Performed By: #### L 503.7505, L100.0100, L500.2500 ####[facility] [address] [place], [address] RDW SD 50.8 fl High 35.1-43.9 [facility] Comment on above: Performed By: #### L 503.7505, L100.0100, L500.2500 ####[facility] [address] [place], [address] WBC (Bld) [#/Vol] 7.5 10*3/uL Normal 4.4-11.0 [facility] Comment on above: Performed By: #### L 503.7505, L100.0100, L500.2500 ####[facility] [address] [place], [address] Carbon dioxide, total [Moles /volume] in Central venous bloodOrdered By: Holli Gaona on 07-22-2024 CO2 [Moles/Vol] 20.1 mmol/L Low 21.0-32.0 [facility] Chloride assayOrdered By: Michaela Gaona on 07-22-2024 Chloride [Moles/Vol] 95 mmol/L Low 98-108 [facility] Eosinophil percentageOrdered By: Holli Gaona on 07-22-2024 Eosinophils/100 WBC (Bld) 0.3 % 0-5 [facility] Erythrocyte distribution wid th ratioOrdered By: Holli Gaona on 07-22-2024 Erythrocyte distribution width (RBC) [Ratio] 14.3 % 11.6-14.6 [facility] Erythrocyte distribution wid th standard deviationOrdered By: Holli Gaona on 07-22-2024 Erythrocyte distribution width (RBC) [Entitic vol] 50.8 fL High 35.1-43.9 [facility] Erythrocyte distribution width (RBC) [Ratio] 50.8 fl High 35.1-43.9 [facility] GFR/1.73 sq M.predicted mario g non-blacks MDRD (S/P/Bld) [Vol rate/Area]Ordered By: Holli Gaona on 07-22-2024 Estimated GFR (MDRD) Non-Af Amer 45 Low >60 [facility] Comment on above: mL/min/1.73m2 CKD-EP I Creatinine Equation (2020) Glomerular filtration rate ( GFR) estimation/1.73 sq m using serum, plasma, or whole bOrdered By: Holli Gaona on 07-22-2024 GFR/1.73 sq M.predicted among non-blacks MDRD (S/P/Bld) [Vol rate/Area] 45 mL/min/{1.73_m2} Low >60 [facility] Comment on above: mL/min/1.73m2 CKD-EP I Creatinine Equation (2020) Hematocrit Auto (Bld) [Volum e fraction]Ordered By: Holli Gaona on 07-22-2024 Hematocrit (Bld) [Volume fraction] 48.4 % High 37-47 [facility] Hemoglobin measurementOrdere d By: Holli Gaona on 07-22-2024 Hemoglobin (Bld) [Mass/Vol] 16.1 g/dL High 12.0-15.0 [facility] Immature granulocytes/100 WB C Auto (Bld)Ordered By: Holli Gaona on 07-22-2024 Immature granulocytes/100 WBC (Bld) 0.300 % 0.0-0.9 [facility] Comment on above: IG% - Immature Granu locytes (promyelocytes, myelocytes and metamyelocytes) > 1% indicates that a LEFT SHIFT is Present. L503.7505on 07-22-2024 Natriuretic peptide B (Bld) [Mass/Vol] 78682 pg/mL High <=1800 [facility] Comment on above: Result Comment: Hear t Failure Unlikely: < 300 pg/mLHeart Failure Likely< 50 Years: > 450 pg/mL50-75 Years: > 900 pg/mL>75 Years: > 1800 pg/mL Performed By: #### L 503.7505, L100.0100, L500.2500 ####[facility] [address] [place], [address] Laboratory - Chemistry and C hemistry - challengeOrdered By: Holli Gaona on 07-22-2024 Natriuretic peptide B (Bld) [Mass/Vol] 56362 pg/mL High <1800 [facility] Comment on above: Heart Failure Unlike ly: < 300 pg/mLHeart Failure Likely< 50 Years: > 450 pg/mL50-75 Years: > 900 pg/mL>75 Years: > 1800 pg/mL Lymphocytes Auto (Unsp spec) [#/Vol]Ordered By: Holli Gaona on 07-22-2024 Lymphocytes (Bld) [#/Vol] 0.69 10*3/uL Low 0.83-4.51 [facility] Lymphocytes/100 WBC Auto (Un sp spec)Ordered By: Holli Gaona on 07-22-2024 Lymphocytes/100 WBC (Bld) 9.2 % Low 19-41 [facility] MCV (mean corpuscular volume ) determinationOrdered By: Holli Gaona on 07-22-2024 MCV (RBC) [Entitic vol] 96.6 fL 81-99 [facility] Mean corpuscular hemoglobin (MCH) determinationOrdered By: Holli Gaona on 07-22-2024 MCH (RBC) [Entitic mass] 32.1 pg High 27.0-32.0 [facility] Mean corpuscular hemoglobin concentration (MCHC) determinationOrdered By: Holli Gaona on 07-22-2024 MCHC (RBC) [Mass/Vol] 33.3 g/dL 32-36 [facility] Mean platelet volume determi nationOrdered By: Holli Gaona on 07-22-2024 Platelet mean volume (Bld) [Entitic vol] 11.2 fL 6.2-12.0 [facility] Monocyte percentageOrdered B y: Holli Gaona on 07-22-2024 Monocytes/100 WBC (Bld) 8.1 % 0-10 [facility] Neutrophil percentageOrdered By: Holli Gaona on 07-22-2024 Neutrophils/100 WBC (Bld) 81.7 % High 47-70 [facility] Nucleated red blood cell per centageOrdered By: Holli Gaona on 07-22-2024 Nucleated RBC/100 WBC (Bld) [Ratio] 0 % 0-5 [facility] Platelet countOrdered By: Michaela Gaona on 07-22-2024 Platelets (Bld) [#/Vol] 122 10*3/uL Low 150-450 [facility] Potassium (Unsp spec) [Mass/ Vol]Ordered By: Holli Gaona on 07-22-2024 Potassium [Moles/Vol] 4.9 mmol/L 3.3-5.1 [facility] Potassium measurement (mass/ volume)Ordered By: Holli Gaona on 07-22-2024 Potassium (Unsp spec) [Mass/Vol] 4.9 mmol/L 3.3-5.1 [facility] RBC Auto (Bld) [#/Vol]Ordere d By: Holli Gaona on 07-22-2024 RBC (Bld) [#/Vol] 5.01 10*6/uL 4.2-5.4 [facility] Serum creatinine measurement (mass/volume)Ordered By: Holli Gaona on 07-22-2024 Creatinine [Mass/Vol] 1.17 mg/dL 0.70-1.20 [facility] Serum glucose measurement (m ass/volume)Ordered By: Holli Gaona on 07-22-2024 Glucose [Mass/Vol] 182 mg/dL High 70-99 [facility] Serum or plasma calcium criss urement (mass/volume)Ordered By: Holli Gaona on 07-22-2024 Calcium [Mass/Vol] 9.2 mg/dL 7.6-11.0 [facility] Serum or plasma urea nitroge n measurement (mass/volume)Ordered By: Holli Gaona on 07-22-2024 Urea nitrogen [Mass/Vol] 32 mg/dL High 4-19 [facility] Sodium levelOrdered By: Trell Gaona on 07-22-2024 Sodium [Moles/Vol] 130 mmol/L Low 133-145 [facility] White blood cell (WBC) count Ordered By: Holli Gaona on 07-22-2024 WBC (Bld) [#/Vol] 7.5 10*3/uL 4.4-11.0 [facility] Basic Metabolic Profile (BMP )on 07-21-2024 BUN Normal 4-19 [facility] Comment on above: Result Comment: UTOX 2 Performed By: #### L 500.2500, L100.0100 ####[facility] [address] [place], [address] BUN/CRE Normal 10-20 [facility] Comment on above: Result Comment: UTOX 2 Performed By: #### L 500.2500, L100.0100 ####[facility] [address] [place], [address] Calcium Normal 7.6-11.0 [facility] Comment on above: Result Comment: UTOX 2 Performed By: #### L 500.2500, L100.0100 ####[facility] [address] [place], [address] CL Normal 98-108 [facility] Comment on above: Result Comment: UTOX 2 Performed By: #### L 500.2500, L100.0100 ####[facility] [address] [place], [address] CO2 Normal 21.0-32.0 [facility] Comment on above: Result Comment: UTOX 2 Performed By: #### L 500.2500, L100.0100 ####[facility] [address] [place], [address] CREAT,SERUM Normal 0.70-1.20 [facility] Comment on above: Result Comment: UTOX 2 Performed By: #### L 500.2500, L100.0100 ####[facility] [address] [place], [address] eGFR Normal >60 [facility] Comment on above: Result Comment: UTOX 2 Performed By: #### L 500.2500, L100.0100 ####[facility] [address] [place], [address] GAP Normal 5-15 [facility] Comment on above: Result Comment: UTOX 2 Performed By: #### L 500.2500, L100.0100 ####[facility] [address] [place], [address] GLU Normal 70-99 [facility] Comment on above: Result Comment: UTOX 2 Performed By: #### L 500.2500, L100.0100 ####[facility] [address] [place], [address] Potassium Normal 3.3-5.1 [facility] Comment on above: Result Comment: UTOX 2 Performed By: #### L 500.2500, L100.0100 ####[facility] [address] [place], [address] Basic Metabolic Profile (BMP) Normal 133-145 [facility] Comment on above: Result Comment: UTOX 2 Performed By: #### L 500.2500, L100.0100 ####[facility] [address] [place], [address] CBC W/Diff, Automatedon 03-2 Absolute Neut Normal 2.0-7.7 [facility] Comment on above: Result Comment: UTOX 2 Performed By: #### L 500.2500, L100.0100 ####[facility] [address] [place], [address] HCT Normal 37-47 [facility] Comment on above: Result Comment: UTOX 2 Performed By: #### L 500.2500, L100.0100 ####[facility] [address] [place], [address] HGB Normal 12.0-15.0 [facility] Comment on above: Result Comment: UTOX 2 Performed By: #### L 500.2500, L100.0100 ####[facility] [address] [place], [address] MCH Normal 27.0-32.0 [facility] Comment on above: Result Comment: UTOX 2 Performed By: #### L 500.2500, L100.0100 ####[facility] [address] [place], [address] MCHC Normal 32-36 [facility] Comment on above: Result Comment: UTOX 2 Performed By: #### L 500.2500, L100.0100 ####[facility] [address] [place], [address] MCV Normal 81-99 [facility] Comment on above: Result Comment: UTOX 2 Performed By: #### L 500.2500, L100.0100 ####[facility] [address] [place], [address] NEUT% Normal 47-70 [facility] Comment on above: Result Comment: UTOX 2 Performed By: #### L 500.2500, L100.0100 ####[facility] [address] [place], [address] PLT Normal 150-450 [facility] Comment on above: Result Comment: UTOX 2 Performed By: #### L 500.2500, L100.0100 ####[facility] [address] [place], [address] RBC Normal 4.2-5.4 [facility] Comment on above: Result Comment: UTOX 2 Performed By: #### L 500.2500, L100.0100 ####[facility] [address] [place], [address] RDW CV Normal 11.6-14.6 [facility] Comment on above: Result Comment: UTOX 2 Performed By: #### L 500.2500, L100.0100 ####[facility] [address] [place], [address] RDW SD Normal 35.1-43.9 [facility] Comment on above: Result Comment: UTOX 2 Performed By: #### L 500.2500, L100.0100 ####[facility] [address] [place], [address] WBC Normal 4.4-11.0 [facility] Comment on above: Result Comment: UTOX 2 Performed By: #### L 500.2500, L100.0100 ####[facility] [address] [place], [address] Chest PA and Lateralon 07-21 Chest PA and Lateral Normal [facility] Acetylcholine Receptoron ACHR AB < 0.03 Normal 0.00-0.24 [facility] Comment on above: Order Comment: DR. Mani HUFF GETS RESULTS FOR SAMARA AND DR. LONDONO GETS RESULTSFOR ALL OTHER LABSN Result Comment: Nega tive: 0.00 - 0.24 Borderline: 0.25 - 0.40 Positive: >0.40Performed at: [facility] [address] [id number] Director: Luis Carlos Crena MD, Phone: [phone] Performed By: #### L 100.0100, L500.2500, L503.7505, L3300.0600 ####[facility] [address] [place], [address] Absolute lymphocyte countOrd ered By: Sharad Londono on 07-04-2024 Lymphocytes Auto (Unsp spec) [#/Vol] 0.88 10*3/uL 0.83-4.51 [facility] Absolute neutrophil countOrd ered By: Sharad Londono on 07-04-2024 Neutrophils (Bld) [#/Vol] 3.7 10*3/uL 2.0-7.7 [facility] Acetylcholine receptorOrdere d By: Sharad Londono on 07-04-2024 Acetylcholine Receptor Antibody < 0.03 nmol/L 0.00-0.24 [facility] Comment on above: Negative: 0.00 - 0.2 4 Borderline: 0.25 - 0.40 Positive: >0.40Performed at: [facility] [address], [place] [id number] Director: Luis Carlos Cerna MD, Phone: [phone] Anion gap in Serum or Plasma Ordered By: Sharad Londono on 07-04-2024 Anion gap [Moles/Vol] 15 mmol/L 5-15 [facility] Automated lymphocyte count a s percentage of total leukocytesOrdered By: Sharad Londono on 07-04-2024 Lymphocytes/100 WBC Auto (Unsp spec) 16.3 % Low 19-41 [facility] BUN/creatinine ratioOrdered By: Sharad Londono on 07-04-2024 Urea nitrogen/Creatinine [Mass ratio] 28.7 mg/mg High 10-20 [facility] Basic Metabolic Profile (BMP )on 07-04-2024 BUN/CRE 28.7 RATIO High 10- [facility] Comment on above: Performed By: #### L 100.0100, L500.2500, L503.7505, L3300.0600 ####[facility] [address] [place], [address] Calcium [Mass/Vol] 9.2 mg/dL Normal 7.6-11.0 [facility] Comment on above: Performed By: #### L 100.0100, L500.2500, L503.7505, L3300.0600 ####[facility] [address] [place], [address] Chloride [Moles/Vol] 101 mmol/L Normal 98-108 [facility] Comment on above: Performed By: #### L 100.0100, L500.2500, L503.7505, L3300.0600 ####[facility] [address] [place], [address] CO2 [Moles/Vol] 20.9 mmol/L Low 21.0-32.0 [facility] Comment on above: Performed By: #### L 100.0100, L500.2500, L503.7505, L3300.0600 ####[facility] [address] [place], [address] Creatinine [Mass/Vol] 1.17 mg/dL Normal 0.70-1.20 [facility] Comment on above: Performed By: #### L 100.0100, L500.2500, L503.7505, L3300.0600 ####[facility] [address] [place], [address] GAP 15 Normal 5-15 [facility] Comment on above: Performed By: #### L 100.0100, L500.2500, L503.7505, L3300.0600 ####[facility] [address] [place], [address] GFR/1.73 sq M.predicted among non-blacks MDRD (S/P/Bld) [Vol rate/Area] 45 mL/min/{1.73_m2} Low >60 [facility] Comment on above: Result Comment: mL/m in/1.73m2 CKD-EPI Creatinine Equation (2020) Performed By: #### L 100.0100, L500.2500, L503.7505, L3300.0600 ####[facility] [address] [place], [address] Glucose [Mass/Vol] 90 mg/dL Normal 70-99 [facility] Comment on above: Performed By: #### L 100.0100, L500.2500, L503.7505, L3300.0600 ####[facility] [address] [place], [address] Potassium [Moles/Vol] 4.1 mmol/L Normal 3.3-5.1 [facility] Comment on above: Performed By: #### L 100.0100, L500.2500, L503.7505, L3300.0600 ####[facility] [address] [place], [address] Sodium [Moles/Vol] 137 mmol/L Normal 133-145 [facility] Comment on above: Performed By: #### L 100.0100, L500.2500, L503.7505, L3300.0600 ####[facility] [address] [place], [address] Urea nitrogen [Mass/Vol] 34 mg/dL High 4-19 [facility] Comment on above: Performed By: #### L 100.0100, L500.2500, L503.7505, L3300.0600 ####[facility] [address] [place], [address] Basophil percentageOrdered B y: Sharad Bry on 07-04-2024 Basophils/100 WBC (Bld) 0.7 % 0-1 [facility] CBC W/Diff, Automatedon Absolute Lymph 0.88 X10 3/uL Normal 0.83-4.51 [facility] Comment on above: Performed By: #### L 100.0100, L500.2500, L503.7505, L3300.0600 ####[facility] [facility] [address] [place], [address] Absolute Neut 3.7 X10 3/uL Normal 2.0-7.7 [facility] Comment on above: Performed By: #### L 100.0100, L500.2500, L503.7505, L3300.0600 ####[facility] [address] [place], [address] Basophils/100 WBC (Bld) 0.7 % Normal 0-1 [facility] Comment on above: Performed By: #### L 100.0100, L500.2500, L503.7505, L3300.0600 ####[facility] [address] [place], [address] Eosinophils/100 WBC (Bld) 1.5 % Normal 0-5 [facility] Comment on above: Performed By: #### L 100.0100, L500.2500, L503.7505, L3300.0600 ####[facility] [address] [place], [address] Erythrocyte distribution width (RBC) [Ratio] 14.6 % Normal 11.6-14.6 [facility] Comment on above: Performed By: #### L 100.0100, L500.2500, L503.7505, L3300.0600 ####[facility] [address] [place], [address] Hematocrit (Bld) [Volume fraction] 47.4 % High 37-47 [facility] Comment on above: Performed By: #### L 100.0100, L500.2500, L503.7505, L3300.0600 ####[facility] [address] [place], [address] Hemoglobin (Bld) [Mass/Vol] 15.5 g/dL High 12.0-15.0 [facility] Comment on above: Performed By: #### L 100.0100, L500.2500, L503.7505, L3300.0600 ####[facility] [address] [place], [address] IG% 0.200 Normal 0.0-0.9 [facility] Comment on above: Result Comment: IG% - Immature Granulocytes (promyelocytes, myelocytes andmetamyelocytes) > 1% indicates that a LEFT SHIFT is Present. Performed By: #### L 100.0100, L500.2500, L503.7505, L3300.0600 ####[facility] [address] [place], [address] Lymphocytes/100 WBC (Bld) 16.3 % Low 19-41 [facility] Comment on above: Performed By: #### L 100.0100, L500.2500, L503.7505, L3300.0600 ####[facility] [address] [place], [address] MCH (RBC) [Entitic mass] 32.1 pg High 27.0-32.0 [facility] Comment on above: Performed By: #### L 100.0100, L500.2500, L503.7505, L3300.0600 ####[facility] [address] [place], [address] MCHC (RBC) [Mass/Vol] 32.7 g/dL Normal 32-36 [facility] Comment on above: Performed By: #### L 100.0100, L500.2500, L503.7505, L3300.0600 ####[facility] [address] [place], [address] MCV (RBC) [Entitic vol] 98.1 fL Normal 81-99 [facility] Comment on above: Performed By: #### L 100.0100, L500.2500, L503.7505, L3300.0600 ####[facility] [address] [place], [address] Monocytes/100 WBC (Bld) 13.0 % High 0-10 [facility] Comment on above: Performed By: #### L 100.0100, L500.2500, L503.7505, L3300.0600 ####[facility] [address] [place], [address] Neutrophils/100 WBC (Bld) 68.3 % Normal 47-70 [facility] Comment on above: Performed By: #### L 100.0100, L500.2500, L503.7505, L3300.0600 ####[facility] [address] [place], [address] Nucleated RBC (Bld) [#/Vol] 0 10*3/uL Normal 0-5 [facility] Comment on above: Performed By: #### L 100.0100, L500.2500, L503.7505, L3300.0600 ####[facility] [address] [place], [address] Platelet mean volume (Bld) [Entitic vol] 11.2 fL Normal 6.2-12.0 [facility] Comment on above: Performed By: #### L 100.0100, L500.2500, L503.7505, L3300.0600 ####[facility] [address] [place], [address] Platelets (Bld) [#/Vol] 155 10*3/uL Normal 150-450 [facility] Comment on above: Performed By: #### L 100.0100, L500.2500, L503.7505, L3300.0600 ####[facility] [address] [place], [address] RBC (Bld) [#/Vol] 4.83 10*6/uL Normal 4.2-5.4 [facility] Comment on above: Performed By: #### L 100.0100, L500.2500, L503.7505, L3300.0600 ####[facility] [address] [place], [address] RDW SD 52.8 fl High 35.1-43.9 [facility] Comment on above: Performed By: #### L 100.0100, L500.2500, L503.7505, L3300.0600 ####[facility] [address] [place], [address] WBC (Bld) [#/Vol] 5.4 10*3/uL Normal 4.4-11.0 [facility] Comment on above: Performed By: #### L 100.0100, L500.2500, L503.7505, L3300.0600 ####[facility] [address] [place], [address] Carbon dioxide, total [Moles /volume] in Central venous bloodOrdered By: Sharad Londono on 07-04-2024 CO2 [Moles/Vol] 20.9 mmol/L Low 21.0-32.0 [facility] Chest PA and Lateralon 07-04 Chest PA and Lateral Normal [facility] Chloride assayOrdered By: Hailee Londono on 07-04-2024 Chloride [Moles/Vol] 101 mmol/L 98-108 [facility] Eosinophil percentageOrdered By: Sharad Londono on 07-04-2024 Eosinophils/100 WBC (Bld) 1.5 % 0-5 [facility] Erythrocyte distribution wid th ratioOrdered By: Sharad Londono on 07-04-2024 Erythrocyte distribution width (RBC) [Ratio] 14.6 % 11.6-14.6 [facility] Erythrocyte distribution wid th standard deviationOrdered By: Sharad Londono on 07-04-2024 Erythrocyte distribution width (RBC) [Entitic vol] 52.8 fL High 35.1-43.9 [facility] Erythrocyte distribution width (RBC) [Ratio] 52.8 fl High 35.1-43.9 [facility] GFR/1.73 sq M.predicted mario g non-blacks MDRD (S/P/Bld) [Vol rate/Area]Ordered By: Sharad Londono on 07-04-2024 Estimated GFR (MDRD) Non-Af Amer 45 Low >60 [facility] Comment on above: mL/min/1.73m2 CKD-EP I Creatinine Equation (2020) Glomerular filtration rate ( GFR) estimation/1.73 sq m using serum, plasma, or whole bOrdered By: Sharad Londono on 07-04-2024 GFR/1.73 sq M.predicted among non-blacks MDRD (S/P/Bld) [Vol rate/Area] 45 mL/min/{1.73_m2} Low >60 [facility] Comment on above: mL/min/1.73m2 CKD-EP I Creatinine Equation (2020) Hematocrit Auto (Bld) [Volum e fraction]Ordered By: Sharad Londono on 07-04-2024 Hematocrit (Bld) [Volume fraction] 47.4 % High 37-47 [facility] Hemoglobin measurementOrdere d By: Sharad Londono on 07-04-2024 Hemoglobin (Bld) [Mass/Vol] 15.5 g/dL High 12.0-15.0 [facility] Immature granulocytes/100 WB C Auto (Bld)Ordered By: Sharad Londono on 07-04-2024 Immature granulocytes/100 WBC (Bld) 0.200 % 0.0-0.9 [facility] Comment on above: IG% - Immature Granu locytes (promyelocytes, myelocytes and metamyelocytes) > 1% indicates that a LEFT SHIFT is Present. L503.7505on 07-04-2024 Natriuretic peptide B (Bld) [Mass/Vol] 65330 pg/mL High <=1800 [facility] Comment on above: Result Comment: Hear t Failure Unlikely: < 300 pg/mLHeart Failure Likely< 50 Years: > 450 pg/mL50-75 Years: > 900 pg/mL>75 Years: > 1800 pg/mL Performed By: #### L 100.0100, L500.2500, L503.7505, L3300.0600 ####[facility] [address] [place], [place], [id number] Laboratory - Chemistry and C hemistry - challengeOrdered By: Sharad Londono on 07-04-2024 Natriuretic peptide B (Bld) [Mass/Vol] 98256 pg/mL High <1800 [facility] Comment on above: Heart Failure Unlike ly: < 300 pg/mLHeart Failure Likely< 50 Years: > 450 pg/mL50-75 Years: > 900 pg/mL>75 Years: > 1800 pg/mL Lymphocytes Auto (Unsp spec) [#/Vol]Ordered By: Sharad Londono on 07-04-2024 Lymphocytes (Bld) [#/Vol] 0.88 10*3/uL 0.83-4.51 [facility] Lymphocytes/100 WBC Auto (Un sp spec)Ordered By: Sharad Londono on 07-04-2024 Lymphocytes/100 WBC (Bld) 16.3 % Low 19-41 [facility] MCV (mean corpuscular volume ) determinationOrdered By: Sharad Londono on 07-04-2024 MCV (RBC) [Entitic vol] 98.1 fL 81-99 [facility] Mean corpuscular hemoglobin (MCH) determinationOrdered By: Sharad Londono on 07-04-2024 MCH (RBC) [Entitic mass] 32.1 pg High 27.0-32.0 [facility] Mean corpuscular hemoglobin concentration (MCHC) determinationOrdered By: Sharad Londono on 07-04-2024 MCHC (RBC) [Mass/Vol] 32.7 g/dL 32-36 [facility] Mean platelet volume determi nationOrdered By: Sharad Londono on 07-04-2024 Platelet mean volume (Bld) [Entitic vol] 11.2 fL 6.2-12.0 [facility] Monocyte percentageOrdered B y: Sharad Londono on 07-04-2024 Monocytes/100 WBC (Bld) 13.0 % High 0-10 [facility] Neutrophil percentageOrdered By: Sharad Londono on 07-04-2024 Neutrophils/100 WBC (Bld) 68.3 % 47-70 [facility] Nucleated red blood cell per centageOrdered By: Sharad Londono on 07-04-2024 Nucleated RBC/100 WBC (Bld) [Ratio] 0 % 0-5 [facility] Platelet countOrdered By: Hailee Londono on 07-04-2024 Platelets (Bld) [#/Vol] 155 10*3/uL 150-450 [facility] Potassium (Unsp spec) [Mass/ Vol]Ordered By: Sharad Londono on 07-04-2024 Potassium [Moles/Vol] 4.1 mmol/L 3.3-5.1 [facility] Potassium measurement (mass/ volume)Ordered By: Sharad Londono on 07-04-2024 Potassium (Unsp spec) [Mass/Vol] 4.1 mmol/L 3.3-5.1 [facility] RBC Auto (Bld) [#/Vol]Ordere d By: Sharad Londono on 07-04-2024 RBC (Bld) [#/Vol] 4.83 10*6/uL 4.2-5.4 [facility] Serum creatinine measurement (mass/volume)Ordered By: Sharad Londono on 07-04-2024 Creatinine [Mass/Vol] 1.17 mg/dL 0.70-1.20 [facility] Serum glucose measurement (m ass/volume)Ordered By: Sharad Londono on 07-04-2024 Glucose [Mass/Vol] 90 mg/dL 70-99 [facility] Serum or plasma calcium criss urement (mass/volume)Ordered By: Sharad Londono on 07-04-2024 Calcium [Mass/Vol] 9.2 mg/dL 7.6-11.0 [facility] Serum or plasma urea nitroge n measurement (mass/volume)Ordered By: Sharad Londono on 07-04-2024 Urea nitrogen [Mass/Vol] 34 mg/dL High 4-19 [facility] Sodium levelOrdered By: Sharad Londono on 07-04-2024 Sodium [Moles/Vol] 137 mmol/L 133-145 [facility] White blood cell (WBC) count Ordered By: Sharad Londono on 07-04-2024 WBC (Bld) [#/Vol] 5.4 10*3/uL 4.4-11.0 [facility] Brain W/WO Contraston 2024 Brain W/WO Contrast Normal [facility] L3410.9998on 06-13-2024 [facility] Misc. COMMENT Normal . [facility] Comment on above: Order Comment: Test( s) 823779-XDyZ Blocking Abs, SerumThis test was developed and its performance characteristicsdetermined by [facility]. It has not been cleared orapproved by the Food and Drug Administration.Test(s) 054452-KGbK-junxixrigf Abwas developed and its performance characteristicsdetermined by [facility]. It has not been cleared or approvedby the Food and Drug Administration.[id number] AB PROFILE Performed By: #### L 3410.9998, L100.0100, L500.4050 ####[facility] [address] [place], [address] Absolute lymphocyte countOrd ered By: Leena Serra on 06-02-2024 Lymphocytes Auto (Unsp spec) [#/Vol] 0.71 10*3/uL Low 0.83-4.51 [facility] Absolute neutrophil countOrd ered By: Leena Serra on 06-02-2024 Neutrophils (Bld) [#/Vol] 3.4 10*3/uL 2.0-7.7 [facility] Albumin to globulin ratioOrd ered By: Leena Serra on 06-02-2024 Albumin/Globulin [Mass ratio] 1.1 {ratio} 0.9-2.4 [facility] Automated lymphocyte count a s percentage of total leukocytesOrdered By: Leena Serra on 06-02-2024 Lymphocytes/100 WBC Auto (Unsp spec) 15.2 % Low 19-41 [facility] Basophil percentageOrdered B y: Leena Serra on 06-02-2024 Basophils/100 WBC (Bld) 0.6 % 0-1 [facility] Bilirubin, totalOrdered By: Leena Serra on 06-02-2024 Bilirubin [Mass/Vol] 0.70 mg/dL 0.20-1.00 [facility] Comment on above: For patients on eltr ombopag therapy, use of [place] TBIL is not recommended. Blood urea nitrogen (BUN)/cr eatinine ratioOrdered By: Leena Serra on 06-02-2024 Urea nitrogen/Creatinine [Mass ratio] 28.3 mg/mg High 10-20 [facility] CBC W/Diff, Automatedon - Absolute Lymph 0.71 X10 3/uL Low 0.83-4.51 [facility] Comment on above: Order Comment: [facility] TOMI ACETYDR. PONCE ORDERED CMP CBCD Performed By: #### L 3410.9998, L100.0100, L500.4050 ####[facility] [address] [place], [address] Absolute Neut 3.4 X10 3/uL Normal 2.0-7.7 [facility] Comment on above: Order Comment: [facility] RDERED ACETYDR. BIBIANALANANDREW ORDERED CMP CBCD Performed By: #### L 3410.9998, L100.0100, L500.4050 ####[facility] [address] [place], [address] Basophils/100 WBC (Bld) 0.6 % Normal 0-1 [facility] Comment on above: Order Comment: [facility] Karla RDERED ACETYDR. BIBIANALANANDREW ORDERED CMP CBCD Performed By: #### L 3410.9998, L100.0100, L500.4050 ####[facility] [address] [place], [address] Eosinophils/100 WBC (Bld) 0.9 % Normal 0-5 [facility] Comment on above: Order Comment: [facility] O RDERED ACETYDR. VELLANKI ORDERED CMP CBCD Performed By: #### L 3410.9998, L100.0100, L500.4050 ####[facility] [address] [place], [address] Erythrocyte distribution width (RBC) [Ratio] 15.5 % High 11.6-14.6 [facility] Comment on above: Order Comment: [facility] O RDERED ACETYDR. VELLANKI ORDERED CMP CBCD Performed By: #### L 3410.9998, L100.0100, L500.4050 ####[facility] [address] [place], [address] Hematocrit (Bld) [Volume fraction] 45.2 % Normal 37-47 [facility] Comment on above: Order Comment: [facility] RDERED ACETYDR. VELLANKI ORDERED CMP CBCD Performed By: #### L 3410.9998, L100.0100, L500.4050 ####[facility] [address] [place], [address] Hemoglobin (Bld) [Mass/Vol] 14.9 g/dL Normal 12.0-15.0 [facility] Comment on above: Order Comment: [facility] O RDERED ACETYDR. VELLANKI ORDERED CMP CBCD Performed By: #### L 3410.9998, L100.0100, L500.4050 ####[facility] [address] [place], [address] IG% 0.400 Normal 0.0-0.9 [facility] Comment on above: Order Comment: [facility] O RDERED ACETYDR. VELLANKI ORDERED CMP CBCD Result Comment: IG% - Immature Granulocytes (promyelocytes, myelocytes andmetamyelocytes) > 1% indicates that a LEFT SHIFT is Present. Performed By: #### L 3410.9998, L100.0100, L500.4050 ####[facility] [address] [place], [address] Lymphocytes/100 WBC (Bld) 15.2 % Low 19-41 [facility] Comment on above: Order Comment: [facility] O RDERED ACETYDR. VELLANKI ORDERED CMP CBCD Performed By: #### L 3410.9998, L100.0100, L500.4050 ####[facility] [address] [place], [address] MCH (RBC) [Entitic mass] 32.0 pg Normal 27.0-32.0 [facility] Comment on above: Order Comment: [facility] O RDERED ACETYDR. VELLANKI ORDERED CMP CBCD Performed By: #### L 3410.9998, L100.0100, L500.4050 ####[facility] [address] [place], [address] MCHC (RBC) [Mass/Vol] 33.0 g/dL Normal 32-36 [facility] Comment on above: Order Comment: [facility] O RDERED ACETYDR. VELLANKI ORDERED CMP CBCD Performed By: #### L 3410.9998, L100.0100, L500.4050 ####[facility] [address] [place], [address] MCV (RBC) [Entitic vol] 97.0 fL Normal 81-99 [facility] Comment on above: Order Comment: [facility] O RDERED ACETYDR. VELLANKI ORDERED CMP CBCD Performed By: #### L 3410.9998, L100.0100, L500.4050 ####[facility] [address] [place], [address] Monocytes/100 WBC (Bld) 10.5 % High 0-10 [facility] Comment on above: Order Comment: [facility] O RDERED ACETYDR. VELLANKI ORDERED CMP CBCD Performed By: #### L 3410.9998, L100.0100, L500.4050 ####[facility] [address] [place], [address] Neutrophils/100 WBC (Bld) 72.4 % High 47-70 [facility] Comment on above: Order Comment: [facility] O RDERED ACETYDR. VELLANKI ORDERED CMP CBCD Performed By: #### L 3410.9998, L100.0100, L500.4050 ####[facility] [address] [place], [address] Nucleated RBC (Bld) [#/Vol] 0 10*3/uL Normal 0-5 [facility] Comment on above: Order Comment: [facility] RDERED ACETYDR. VELLANKI ORDERED CMP CBCD Performed By: #### L 3410.9998, L100.0100, L500.4050 ####[facility] [address] [place], [address] Platelet mean volume (Bld) [Entitic vol] 11.2 fL Normal 6.2-12.0 [facility] Comment on above: Order Comment: [facility] RDERED ACETYDR. VELLANKI ORDERED CMP CBCD Performed By: #### L 3410.9998, L100.0100, L500.4050 ####[facility] [address] [place], [address] Platelets (Bld) [#/Vol] 163 10*3/uL Normal 150-450 [facility] Comment on above: Order Comment: [facility] O RDERED ACETYDR. VELLANKI ORDERED CMP CBCD Performed By: #### L 3410.9998, L100.0100, L500.4050 ####[facility] [address] [place], [address] RBC (Bld) [#/Vol] 4.66 10*6/uL Normal 4.2-5.4 [facility] Comment on above: Order Comment: [facility] TOMI ACETYDR. SERRA ORDERED CMP CBCD Performed By: #### L 3410.9998, L100.0100, L500.4050 ####[facility] [address] [place], [address] RDW SD 54.7 fl High 35.1-43.9 [facility] Comment on above: Order Comment: [facility] HILLERED ACETYDR. SERRA ORDERED CMP CBCD Performed By: #### L 3410.9998, L100.0100, L500.4050 ####[facility] [address] [place], [address] WBC (Bld) [#/Vol] 4.7 10*3/uL Normal 4.4-11.0 [facility] Comment on above: Order Comment: [facility] TOMI SERRA ORDERED CMP CBCD Performed By: #### L 3410.9998, L100.0100, L500.4050 ####[facility] [address] [place], [address] Carbon dioxide measurementOr dered By: Leena Serra on 06-02-2024 CO2 [Moles/Vol] 22.0 mmol/L 21.0-32.0 [facility] Chloride measurementOrdered By: Leena Serra on 06-02-2024 Chloride [Moles/Vol] 106 mmol/L 98-107 [facility] Comprehensive Metabolic Prof ilon 06-02-2024 Albumin [Mass/Vol] 3.5 g/dL Normal 3.2-5.0 [facility] Comment on above: Order Comment: [facility] RDERED ACETHANRNena SERRA ORDERED CMP CBCD Performed By: #### L 3410.9998, L100.0100, L500.4050 ####[facility] [address] [place], [address] Albumin/Globulin [Mass ratio] 1.1 {ratio} Normal 0.9-2.4 [facility] Comment on above: Order Comment: [facility] O RDERED ACETYDR. VELLANKI ORDERED CMP CBCD Performed By: #### L 3410.9998, L100.0100, L500.4050 ####[facility] [address] [place], [address] ALK P 66 U/L Normal 45-117 [facility] Comment on above: Order Comment: [facility] RDERED ACETYDR. VELLANKI ORDERED CMP CBCD Performed By: #### L 3410.9998, L100.0100, L500.4050 ####[facility] [address] [place], [address] ALT [Catalytic activity/Vol] 26 U/L Normal 13-56 [facility] Comment on above: Order Comment: [facility] RDERED ACETYDR. VELLANKI ORDERED CMP CBCD Performed By: #### L 3410.9998, L100.0100, L500.4050 ####[facility] [address] [place], [address] AST [Catalytic activity/Vol] 17 U/L Normal 15-37 [facility] Comment on above: Order Comment: [facility] RDERED ACETYDR. VELLANANDREW ORDERED CMP CBCD Performed By: #### L 3410.9998, L100.0100, L500.4050 ####[facility] [address] [place], [address] Bilirubin [Mass/Vol] 0.70 mg/dL Normal 0.20-1.00 [facility] Comment on above: Order Comment: [facility] RDERED ACETYDR. VELLANKI ORDERED CMP CBCD Result Comment: For patients on eltrombopag therapy, use of [place] TBIL is not recommended. Performed By: #### L 3410.9998, L100.0100, L500.4050 ####[facility] [address] [place], [address] BUN/CRE 28.3 RATIO High 10-20 [facility] Comment on above: Order Comment: [facility] O RDERED ACETYDR. VELLANKI ORDERED CMP CBCD Performed By: #### L 3410.9998, L100.0100, L500.4050 ####[facility] [address] [place], [address] CA,Total 9.6 mg/dL Normal 8.5-10.1 [facility] Comment on above: Order Comment: [facility] RDERED ACETYDR. VELLANKI ORDERED CMP CBCD Performed By: #### L 3410.9998, L100.0100, L500.4050 ####[facility] [address] [place], [address] Chloride [Moles/Vol] 106 mmol/L Normal 98-107 [facility] Comment on above: Order Comment: [facility] RDERED ACETYDR. VELLANKI ORDERED CMP CBCD Performed By: #### L 3410.9998, L100.0100, L500.4050 ####[facility] [address] [place], [address] CO2 [Moles/Vol] 22.0 mmol/L Normal 21.0-32.0 [facility] Comment on above: Order Comment: [facility] RDERED ACETYDR. VELLANKI ORDERED CMP CBCD Performed By: #### L 3410.9998, L100.0100, L500.4050 ####[facility] [address] [place], [address] Creatinine [Mass/Vol] 1.20 mg/dL High 0.55-1.02 [facility] Comment on above: Order Comment: [facility] RDERED ACETYDR. VELLANKI ORDERED CMP CBCD Result Comment: The validity of the calculated GFR GFRAA in patients over70 years has not been determined. Clinical correlation isessential. Performed By: #### L 3410.9998, L100.0100, L500.4050 ####[facility] [address] [place], [address] EST GFR - AA 55 mL/min Low >60 [facility] Comment on above: Order Comment: [facility] O RDERED ACETYDR. VELLANKI ORDERED CMP CBCD Result Comment: Afri can Czech GFR Calc Performed By: #### L 3410.9998, L100.0100, L500.4050 ####[facility] [address] [place], [address] GAP 9 Normal 5-15 [facility] Comment on above: Order Comment: [facility] O RDERED ACETYDR. VELLANKI ORDERED CMP CBCD Performed By: #### L 3410.9998, L100.0100, L500.4050 ####[facility] [address] [place], [address] GFR/1.73 sq M.predicted among non-blacks MDRD (S/P/Bld) [Vol rate/Area] 45 mL/min/{1.73_m2} Low >60 [facility] Comment on above: Order Comment: [facility] O RDERED ACETYDR. VELLANKI ORDERED CMP CBCD Result Comment: Non- GFR Calc Performed By: #### L 3410.9998, L100.0100, L500.4050 ####[facility] [address] [place], [address] Globulin (S) [Mass/Vol] 3.2 g/dL Normal 2.2-4.2 [facility] Comment on above: Order Comment: [facility] O RDERED ACETYDR. VELLANKI ORDERED CMP CBCD Performed By: #### L 3410.9998, L100.0100, L500.4050 ####[facility] [address] [place], [address] Glucose [Mass/Vol] 114 mg/dL High 74-106 [facility] Comment on above: Order Comment: [facility] O RDERED ACETYDR. VELLANKI ORDERED CMP CBCD Result Comment: Fast ing Glucose result from 100 to 125 mg/dLsuggests IMPAIRED HOMEOSTASIS per A.D.A. criteria. Performed By: #### L 3410.9998, L100.0100, L500.4050 ####[facility] [address] [place], [address] Potassium [Moles/Vol] 4.3 mmol/L Normal 3.5-5.1 [facility] Comment on above: Order Comment: [facility] RDERED ACETYDR. VELLANKI ORDERED CMP CBCD Performed By: #### L 3410.9998, L100.0100, L500.4050 ####[facility] [address] [place], [address] Sodium [Moles/Vol] 137 mmol/L Normal 136-145 [facility] Comment on above: Order Comment: [facility] RDERED ACETYDR. VELLANKI ORDERED CMP CBCD Performed By: #### L 3410.9998, L100.0100, L500.4050 ####[facility] [address] [place], [address] T PROT 6.7 g/dL Normal 6.4-8.2 [facility] Comment on above: Order Comment: [facility] RDERED ACETYDR. VELLANKI ORDERED CMP CBCD Performed By: #### L 3410.9998, L100.0100, L500.4050 ####[facility] [address] [place], [address] Urea nitrogen [Mass/Vol] 34 mg/dL High 7-18 [facility] Comment on above: Order Comment: [facility] O RDERED ACETYDR. VELLANKI ORDERED CMP CBCD Performed By: #### L 3410.9998, L100.0100, L500.4050 ####[facility] [address] [place], [address] Eosinophil percentageOrdered By: Leena Serra on 06-02-2024 Eosinophils/100 WBC (Bld) 0.9 % 0-5 [facility] Erythrocyte distribution wid th ratioOrdered By: Leena Serra on 06-02-2024 Erythrocyte distribution width (RBC) [Ratio] 15.5 % High 11.6-14.6 [facility] Erythrocyte distribution wid th standard deviationOrdered By: Leena Serra on 06-02-2024 Erythrocyte distribution width (RBC) [Entitic vol] 54.7 fL High 35.1-43.9 [facility] Erythrocyte distribution width (RBC) [Ratio] 54.7 fl High 35.1-43.9 [facility] Estimated glomerular filtrat ion rate (GFR) AmericanOrdered By: Leena Serra on 06-02-2024 Estimated GFR (MDRD) Amer 55 mL/min Low >60 [facility] Comment on above: GFR Calc Glomerular filtration rate ( GFR) estimationOrdered By: Leena Serra on 06-02-2024 Estimated GFR (MDRD) Non-Af Amer 45 mL/min Low >60 [facility] Comment on above: Non- GFR Calc GFR/1.73 sq M.predicted among non-blacks MDRD (S/P/Bld) [Vol rate/Area] 45 mL/min/{1.73_m2} Low >60 [facility] Comment on above: Non- GFR Calc Glucose measurementOrdered B y: Leena Serra on 06-02-2024 Glucose [Mass/Vol] 114 mg/dL High 74-106 [facility] Comment on above: Fasting Glucose resu lt from 100 to 125 mg/dL suggests IMPAIRED HOMEOSTASIS per A.D.A. criteria. Hematocrit Auto (Bld) [Volum e fraction]Ordered By: Leena Serra on 06-02-2024 Hematocrit (Bld) [Volume fraction] 45.2 % 37-47 [facility] Hemoglobin measurementOrdere d By: Leena Serra on 06-02-2024 Hemoglobin (Bld) [Mass/Vol] 14.9 g/dL 12.0-15.0 [facility] Immature granulocytes/100 WB C Auto (Bld)Ordered By: Leena Serra on 06-02-2024 Immature granulocytes/100 WBC (Bld) 0.400 % 0.0-0.9 [facility] Comment on above: IG% - Immature Granu locytes (promyelocytes, myelocytes and metamyelocytes) > 1% indicates that a LEFT SHIFT is Present. Laboratory - Chemistry and C hemistry - challengeOrdered By: Leena Serra on 06-02-2024 AST [Catalytic activity/Vol] 17 U/L 15-37 [facility] Lymphocytes Auto (Unsp spec) [#/Vol]Ordered By: Leenajulia Serra on 06-02-2024 Lymphocytes (Bld) [#/Vol] 0.71 10*3/uL Low 0.83-4.51 [facility] Lymphocytes/100 WBC Auto (Un sp spec)Ordered By: Leena Serra on 06-02-2024 Lymphocytes/100 WBC (Bld) 15.2 % Low 19-41 [facility] MCV (mean corpuscular volume ) determinationOrdered By: Leena Serra on 06-02-2024 MCV (RBC) [Entitic vol] 97.0 fL 81-99 [facility] Mean corpuscular hemoglobin (MCH) determinationOrdered By: Leena Serra on 06-02-2024 MCH (RBC) [Entitic mass] 32.0 pg 27.0-32.0 [facility] Mean corpuscular hemoglobin concentration (MCHC) determinationOrdered By: Leena Serra on 06-02-2024 MCHC (RBC) [Mass/Vol] 33.0 g/dL 32-36 [facility] Mean platelet volume determi nationOrdered By: Leena Serra on 06-02-2024 Platelet mean volume (Bld) [Entitic vol] 11.2 fL 6.2-12.0 [facility] Monocyte percentageOrdered B y: Leena Serra on 06-02-2024 Monocytes/100 WBC (Bld) 10.5 % High 0-10 [facility] Neutrophil percentageOrdered By: Leena Serra on 06-02-2024 Neutrophils/100 WBC (Bld) 72.4 % High 47-70 [facility] Nucleated red blood cell per centageOrdered By: Leena Serra on 06-02-2024 Nucleated RBC/100 WBC (Bld) [Ratio] 0 % 0-5 [facility] Platelet countOrdered By: Wisam Serra on 06-02-2024 Platelets (Bld) [#/Vol] 163 10*3/uL 150-450 [facility] Potassium measurementOrdered By: Leena Serra on 06-02-2024 Potassium [Moles/Vol] 4.3 mmol/L 3.5-5.1 [facility] RBC Auto (Bld) [#/Vol]Ordere d By: Leena Serra on 06-02-2024 RBC (Bld) [#/Vol] 4.66 10*6/uL 4.2-5.4 [facility] Serum anion gap measurementO rdered By: Leena Serra on 06-02-2024 Anion gap [Moles/Vol] 9 mmol/L 5-15 [facility] Serum globulin measurementOr dered By: Leena Serra on 06-02-2024 Globulin (S) [Mass/Vol] 3.2 g/dL 2.2-4.2 [facility] Serum or plasma alanine hay otransferase (ALT) measurementOrdered By: Leena Serra on 06-02-2024 ALT [Catalytic activity/Vol] 26 U/L 13-56 [facility] Serum or plasma albumin criss urement (mass/volume)Ordered By: Leena Serra on 06-02-2024 Albumin [Mass/Vol] 3.5 g/dL 3.2-5.0 [facility] Serum or plasma alkaline ezra sphatase measurementOrdered By: Leena Serra on 06-02-2024 ALP [Catalytic activity/Vol] 66 U/L 45-117 [facility] Serum or plasma calcium criss urement (mass/volume)Ordered By: Leena Serra on 06-02-2024 Calcium [Mass/Vol] 9.6 mg/dL 8.5-10.1 [facility] Serum or plasma creatinine m easurement (mass/volume)Ordered By: Leena Serra on 06-02-2024 Creatinine [Mass/Vol] 1.20 mg/dL High 0.55-1.02 [facility] Comment on above: The validity of the calculated GFR & GFRAA in patients over 70 years has not been determined. Clinical correlation is essential. Serum or plasma urea nitroge n measurement (mass/volume)Ordered By: Leena Serra on 06-02-2024 Urea nitrogen [Mass/Vol] 34 mg/dL High 7-18 [facility] Sodium levelOrdered By: Ara Serra on 06-02-2024 Sodium [Moles/Vol] 137 mmol/L 136-145 [facility] Total proteinOrdered By: Yolette Serra on 06-02-2024 Protein [Mass/Vol] 6.7 g/dL 6.4-8.2 [facility] White blood cell (WBC) count Ordered By: Leena Serra on 06-02-2024 WBC (Bld) [#/Vol] 4.7 10*3/uL 4.4-11.0 [facility] 12 Lead EKG performed by [facility] on 05-01-2024 12 Lead EKG performed by [facility] [facility] Normal [facility] Cardiology Visit Reporton Cardiology Visit Report Normal [facility] Basic Metabolic Profile (BMP )on 02-15-2024 BUN/CRE 28.1 RATIO High 02-19 [facility] Comment on above: Performed By: #### L 500.2500 ####[facility] [address] [place], [address] CA,Total 9.7 mg/dL Normal 8.5-10.1 [facility] Comment on above: Performed By: #### L 500.2500 ####[facility] [address] [place], [address] Chloride [Moles/Vol] 102 mmol/L Normal 98-107 [facility] Comment on above: Performed By: #### L 500.2500 ####[facility] [address] [place], [address] CO2 [Moles/Vol] 26.0 mmol/L Normal 21.0-32.0 [facility] Comment on above: Performed By: #### L 500.2500 ####[facility] [address] [place], [address] Creatinine [Mass/Vol] 1.28 mg/dL High 0.55-1.02 [facility] Comment on above: Result Comment: The validity of the calculated GFR GFRAA in patients over70 years has not been determined. Clinical correlation isessential. Performed By: #### L 500.2500 ####[facility] [address] [place], [address] EST GFR - AA 51 mL/min Low >60 [facility] Comment on above: Result Comment: Afri can Czech GFR Calc Performed By: #### L 500.2500 ####[facility] [address] [place], [address] GAP 8 Normal 5-15 [facility] Comment on above: Performed By: #### L 500.2500 ####[facility] [address] [place], [address] GFR/1.73 sq M.predicted among non-blacks MDRD (S/P/Bld) [Vol rate/Area] 42 mL/min/{1.73_m2} Low >60 [facility] Comment on above: Result Comment: Non- GFR Calc Performed By: #### L 500.2500 ####[facility] [address] [place], [address] Glucose [Mass/Vol] 120 mg/dL High 74-106 [facility] Comment on above: Result Comment: Fast ing Glucose result from 100 to 125 mg/dLsuggests IMPAIRED HOMEOSTASIS per A.D.A. criteria. Performed By: #### L 500.2500 ####[facility] [address] [place], [address] Potassium [Moles/Vol] 3.5 mmol/L Normal 3.5-5.1 [facility] Comment on above: Performed By: #### L 500.2500 ####[facility] [address] [place], [address] Sodium [Moles/Vol] 137 mmol/L Normal 136-145 [facility] Comment on above: Performed By: #### L 500.2500 ####[facility] [address] [place], [address] Urea nitrogen [Mass/Vol] 36 mg/dL High 7-18 [facility] Comment on above: Performed By: #### L 500.2500 ####[facility] [address] [place], [address] CBC W/Diff, Automatedon 10-0 Absolute Lymph 1.30 X10 3/uL Normal 0.83-4.51 [facility] Comment on above: Order Comment: DR. Mani NORRIS GETS BMPDR. PONCE GETS CMP CBCD Performed By: #### L 500.4050, L100.0100 ####[facility] [address] [place], [address] Absolute Neut 3.7 X10 3/uL Normal 2.0-7.7 [facility] Comment on above: Order Comment: DR. Mani NORRIS GETS BMPDR. BIBIANALANANDREW GETS CMP CBCD Performed By: #### L 500.4050, L100.0100 ####[facility] [address] [place], [address] Basophils/100 WBC (Bld) 0.4 % Normal 0-1 [facility] Comment on above: Order Comment: DR. Mani NORRIS GETS BMPDR. BIBIANALANKI GETS CMP CBCD Performed By: #### L 500.4050, L100.0100 ####[facility] [address] [place], [address] Eosinophils/100 WBC (Bld) 0.9 % Normal 0-5 [facility] Comment on above: Order Comment: DR. Mani NORRIS GETS BMPDR. BIBIANALANKI GETS CMP CBCD Performed By: #### L 500.4050, L100.0100 ####[facility] [address] [place], [address] Erythrocyte distribution width (RBC) [Ratio] 13.9 % Normal 11.6-14.6 [facility] Comment on above: Order Comment: DR. Mani NORRIS GETS BMPDR. SERRA GETS CMP CBCD Performed By: #### L 500.4050, L100.0100 ####[facility] [address] [place], [address] Hematocrit (Bld) [Volume fraction] 45.6 % Normal 37-47 [facility] Comment on above: Order Comment: DR. Mani NORRIS GETS BMPDR. SERRA GETS CMP CBCD Performed By: #### L 500.4050, L100.0100 ####[facility] [address] [place], [address] Hemoglobin (Bld) [Mass/Vol] 14.6 g/dL Normal 12.0-15.0 [facility] Comment on above: Order Comment: DR. Mani NORRIS GETS BMPDR. SERRA GETS CMP CBCD Performed By: #### L 500.4050, L100.0100 ####[facility] [address] [place], [address] IG% 0.400 Normal 0.0-0.9 [facility] Comment on above: Order Comment: DR. Mani NORRIS GETS BMPDR. SERRA GETS CMP CBCD Result Comment: IG% - Immature Granulocytes (promyelocytes, myelocytes andmetamyelocytes) > 1% indicates that a LEFT SHIFT is Present. Performed By: #### L 500.4050, L100.0100 ####[facility] [address] [place], [address] Lymphocytes/100 WBC (Bld) 23.7 % Normal 19-41 [facility] Comment on above: Order Comment: DR. Mani NORRIS GETS BMPDR. SERRA GETS CMP CBCD Performed By: #### L 500.4050, L100.0100 ####[facility] [address] [place], [address] MCH (RBC) [Entitic mass] 30.3 pg Normal 27.0-32.0 [facility] Comment on above: Order Comment: DR. Mani NORRIS GETS BMPDRNean SERRA GETS CMP CBCD Performed By: #### L 500.4050, L100.0100 ####[facility] [address] [place], [address] MCHC (RBC) [Mass/Vol] 32.0 g/dL Normal 32-36 [facility] Comment on above: Order Comment: DR. Mani NORRIS GETS BMPDR. PONCE GETS CMP CBCD Performed By: #### L 500.4050, L100.0100 ####[facility] [address] [place], [address] MCV (RBC) [Entitic vol] 94.6 fL Normal 81-99 [facility] Comment on above: Order Comment: DR. Mani NORRIS GETS MANDYDRNena SERRA GETS CMP CBCD Performed By: #### L 500.4050, L100.0100 ####[facility] [address] [place], [address] Monocytes/100 WBC (Bld) 7.1 % Normal 0-10 [facility] Comment on above: Order Comment: DR. Mani NORRIS GETS BMPDR. PONCE GETS CMP CBCD Performed By: #### L 500.4050, L100.0100 ####[facility] [address] [place], [address] Neutrophils/100 WBC (Bld) 67.5 % Normal 47-70 [facility] Comment on above: Order Comment: DR. Mani NORRIS GETS BMPDR. SERRA GETS CMP CBCD Performed By: #### L 500.4050, L100.0100 ####[facility] [address] [place], [address] Nucleated RBC (Bld) [#/Vol] 0 10*3/uL Normal 0-5 [facility] Comment on above: Order Comment: DR. Mani NORRIS GETS BMPDRNena SERRA GETS CMP CBCD Performed By: #### L 500.4050, L100.0100 ####[facility] [address] [place], [address] Platelet mean volume (Bld) [Entitic vol] 11.4 fL Normal 6.2-12.0 [facility] Comment on above: Order Comment: DR. Mani NORRIS GETS BMPDRNena SERRA GETS CMP CBCD Performed By: #### L 500.4050, L100.0100 ####[facility] [address] [place], [address] Platelets (Bld) [#/Vol] 153 10*3/uL Normal 150-450 [facility] Comment on above: Order Comment: DR. Mani NORRIS GETS MANDYDRNena SERRA GETS CMP CBCD Performed By: #### L 500.4050, L100.0100 ####[facility] [address] [place], [address] RBC (Bld) [#/Vol] 4.82 10*6/uL Normal 4.2-5.4 [facility] Comment on above: Order Comment: DR. Mani NORRIS GETS BMPDR. PONCE GETS CMP CBCD Performed By: #### L 500.4050, L100.0100 ####[facility] [address] [place], [address] RDW SD 48.3 fl High 35.1-43.9 [facility] Comment on above: Order Comment: DR. Mani NORRIS GETS MANDYDRNena SERRA GETS CMP CBCD Performed By: #### L 500.4050, L100.0100 ####[facility] [address] [place], [address] WBC (Bld) [#/Vol] 5.5 10*3/uL Normal 4.4-11.0 [facility] Comment on above: Order Comment: DR. Mani NORRIS GETS BMPDR. PONCE GETS CMP CBCD Performed By: #### L 500.4050, L100.0100 ####[facility] [address] [place], [address] Comprehensive Metabolic Prof ilon 02-01-2024 Albumin [Mass/Vol] 3.2 g/dL Normal 3.2-5.0 [facility] Comment on above: Order Comment: DR. Mani NORRIS GETS BMPDR. PONCE GETS CMP CBCD Performed By: #### L 500.4050, L100.0100 ####[facility] [address] [place], [address] Albumin/Globulin [Mass ratio] 0.9 {ratio} Normal 0.9-2.4 [facility] Comment on above: Order Comment: DR. Mani NORRIS GETS BMPDR. PONCE GETS CMP CBCD Performed By: #### L 500.4050, L100.0100 ####[facility] [address] [place], [address] ALK P 66 U/L Normal 45-117 [facility] Comment on above: Order Comment: DR. Mani NORRIS GETS BMPDR. PONCE GETS CMP CBCD Performed By: #### L 500.4050, L100.0100 ####[facility] [address] [place], [address] ALT [Catalytic activity/Vol] 21 U/L Normal 13-56 [facility] Comment on above: Order Comment: DR. Mani NORRIS GETS BMPDR. PONCE GETS CMP CBCD Performed By: #### L 500.4050, L100.0100 ####[facility] [address] [place], [address] AST [Catalytic activity/Vol] 18 U/L Normal 15-37 [facility] Comment on above: Order Comment: DR. Mani NORRIS GETS BMPDR. PONCE GETS CMP CBCD Performed By: #### L 500.4050, L100.0100 ####[facility] [address] [place], [address] Bilirubin [Mass/Vol] 0.60 mg/dL Normal 0.20-1.00 [facility] Comment on above: Order Comment: DR. Mani NORRIS GETS BMPDR. PONCE GETS CMP CBCD Result Comment: For patients on eltrombopag therapy, use of [place] TBIL is not recommended. Performed By: #### L 500.4050, L100.0100 ####[facility] [address] [place], [address] BUN/CRE 30.7 RATIO High 10-20 [facility] Comment on above: Order Comment: DR. Mani NORRIS GETS MANDYDR. PONCE GETS CMP CBCD Performed By: #### L 500.4050, L100.0100 ####[facility] [address] [place], [address] CA,Total 9.1 mg/dL Normal 8.5-10.1 [facility] Comment on above: Order Comment: DR. Mani NORRIS GETS BMPDRNena SERRA GETS CMP CBCD Performed By: #### L 500.4050, L100.0100 ####[facility] [address] [place], [address] Chloride [Moles/Vol] 103 mmol/L Normal 98-107 [facility] Comment on above: Order Comment: DR. Mani NORRIS GETS BMPDR. PONCE GETS CMP CBCD Performed By: #### L 500.4050, L100.0100 ####[facility] [address] [place], [address] CO2 [Moles/Vol] 23.0 mmol/L Normal 21.0-32.0 [facility] Comment on above: Order Comment: DR. Mani NORRIS GETS BMPDR. SERRA GETS CMP CBCD Performed By: #### L 500.4050, L100.0100 ####[facility] [address] [place], [address] Creatinine [Mass/Vol] 1.27 mg/dL High 0.55-1.02 [facility] Comment on above: Order Comment: DR. Mani NORRIS GETS BMPDR. SERRA GETS CMP CBCD Result Comment: The validity of the calculated GFR GFRAA in patients over70 years has not been determined. Clinical correlation isessential. Performed By: #### L 500.4050, L100.0100 ####[facility] [address] [place], [address] EST GFR - AA 51 mL/min Low >60 [facility] Comment on above: Order Comment: DR. Mani NORRIS GETS BMPDR. SERRA GETS CMP CBCD Result Comment: Afri can Czech GFR Calc Performed By: #### L 500.4050, L100.0100 ####[facility] [address] [place], [address] GAP 10 Normal 5-15 [facility] Comment on above: Order Comment: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 Laboratory - Chemistry and C hemistry - challengeOrdered By: Holli Gaona on 04-07-2023 Globulin (S) [Mass/Vol] 3.5 g/dL 2.2-4.2 [facility] No Panel InformationOrdered By: Holli Gaona on 04-07-2023 3.5 g/dL 2.2-4.2 [facility] Serum or plasma albumin/glob ulin mass ratioOrdered By: Holli Gaona on 04-07-2023 Albumin/Globulin [Mass ratio] 1.1 {ratio} 0.9-2.4 [facility] Absolute lymphocyte countOrd ered By: Tony Zapien on 03-29-2023 Lymphocytes Auto (Unsp spec) [#/Vol] 1.08 10*3/uL 0.83-4.51 [facility] Basophil percentageOrdered B y: Tony Zapien on 03-29-2023 Basophil percentage 88 mg/dL 74-106 [facility] Basophil percentage 7.2 g/dL 6.4-8.2 [facility] Basophil percentage 0.70 mg/dL 0.20-1.00 [facility] Basophil percentage 137 mmol/L 136-145 [facility] Basophil percentage 3.6 mmol/L 3.5-5.1 [facility] Basophil percentage 103 mmol/L 98-107 [facility] Basophils (Bld) [#/Vol] 5.1 10*3/uL 4.4-11.0 [facility] Basophils (Bld) [#/Vol] 3.3 10*3/uL 2.0-7.7 [facility] Basophils/100 WBC (Bld) 65.3 % 47-70 [facility] Basophils/100 WBC (Bld) 1.0 % 0-5 [facility] Basophils/100 WBC (Bld) 0.8 % 0-1 [facility] Bilirubin [Mass/Vol] 0.70 mg/dL 0.20-1.00 [facility] Comment on above: For patients on eltr ombopag therapy, use of [place] TBIL is not recommended. Chloride [Moles/Vol] 103 mmol/L 98-107 [facility] Eosinophils/100 WBC (Bld) 1.0 % 0-5 [facility] Glucose [Mass/Vol] 88 mg/dL 74-106 [facility] Neutrophils (Bld) [#/Vol] 3.3 10*3/uL 2.0-7.7 [facility] Neutrophils/100 WBC (Bld) 65.3 % 47-70 [facility] Potassium [Moles/Vol] 3.6 mmol/L 3.5-5.1 [facility] Protein [Mass/Vol] 7.2 g/dL 6.4-8.2 [facility] Sodium [Moles/Vol] 137 mmol/L 136-145 [facility] WBC (Bld) [#/Vol] 5.1 10*3/uL 4.4-11.0 [facility] Blood erythrocytes count (nu mber/volume)Ordered By: Tony Zapien on 03-29-2023 RBC (Bld) [#/Vol] 4.91 10*6/uL 4.2-5.4 [facility] Blood hemoglobin measurement (mass/volume)Ordered By: Tony Zapien on 03-29-2023 Hemoglobin (Bld) [Mass/Vol] 15.1 g/dL 12.0-15.0 [facility] Blood lymphocytes/100 leukoc ytesOrdered By: Tony Zapien on 03-29-2023 Lymphocytes/100 WBC (Bld) 21.3 % 19-41 [facility] Blood monocytes/100 leukocyt esOrdered By: Tony Zapien on 03-29-2023 Monocytes/100 WBC (Bld) 11.2 % 0-10 [facility] Blood platelet mean volumeOr dered By: Tony Zapien on 03-29-2023 Platelet mean volume (Bld) [Entitic vol] 10.1 fL 6.2-12.0 [facility] Determination of erythrocyte mean corpuscular volume (MCV)Ordered By: Tony Zapien on 03-29-2023 MCV (RBC) [Entitic vol] 95.9 fL 81-99 [facility] Hematocrit Auto (Bld) [Volum e fraction]Ordered By: oTny Zapien on 03-29-2023 Hematocrit (Bld) [Volume fraction] 47.1 % 37-47 [facility] Laboratory - Chemistry and C hemistry - challengeOrdered By: Tony Zapien on 03-29-2023 ALP [Catalytic activity/Vol] 69 U/L 45-117 [facility] ALT [Catalytic activity/Vol] 28 U/L 13-56 [facility] CO2 [Moles/Vol] 27.0 mmol/L 21.0-32.0 [facility] Globulin (S) [Mass/Vol] 3.8 g/dL 2.2-4.2 [facility] Urea nitrogen/Creatinine [Mass ratio] 19.2 mg/mg 10-20 [facility] Laboratory - Hematology and Cell countsOrdered By: Tony Zapien on 03-29-2023 Erythrocyte distribution width (RBC) [Entitic vol] 52.9 fL 35.1-43.9 [facility] Erythrocyte distribution width (RBC) [Ratio] 15.2 % 11.6-14.6 [facility] Immature granulocytes/100 WBC (Bld) 0.400 % 0.0-0.9 [facility] Comment on above: IG% - Immature Granu locytes (promyelocytes, myelocytes and metamyelocytes) > 1% indicates that a LEFT SHIFT is Present. MCH (RBC) [Entitic mass] 30.8 pg 27.0-32.0 [facility] Nucleated RBC/100 WBC (Bld) [Ratio] 0 % 0-5 [facility] MCHC Auto (RBC) [Mass/Vol]Or dered By: Tony Zapien on 03-29-2023 MCHC (RBC) [Mass/Vol] 32.1 g/dL 32-36 [facility] No Panel InformationOrdered By: Tony Zapien on 03-29-2023 Estimated GFR (MDRD) Amer 65 mL/min >60 [facility] Comment on above: GFR Calc Estimated GFR (MDRD) Non-Af Amer 53 mL/min >60 [facility] Comment on above: Non- GFR Calc Thyroid Stimulating Hormone (TSH) 4.82 uIU/mL 0.358-3.74 [facility] 30.8 pg 27.0-32.0 [facility] 15.2 % 11.6-14.6 [facility] 52.9 fl 35.1-43.9 [facility] 0.400 % 0.0-0.9 [facility] 0 % 0-5 [facility] 53 mL/min >60 [facility] 65 mL/min >60 [facility] 19.2 RATIO 10-20 [facility] 3.8 g/dL 2.2-4.2 [facility] 69 U/L 45-117 [facility] 28 U/L 13-56 [facility] 27.0 mmol/L 21.0-32.0 [facility] 4.82 uIU/mL 0.358-3.74 [facility] Platelets bldOrdered By: Kerwin Zapien on 03-29-2023 Platelets (Bld) [#/Vol] 200 10*3/uL 150-450 [facility] Serum or plasma albumin criss urement (mass/volume)Ordered By: Tony Zapien on 03-29-2023 Albumin [Mass/Vol] 3.4 g/dL 3.2-5.0 [facility] Serum or plasma albumin/glob ulin mass ratioOrdered By: Tony Zapien on 03-29-2023 Albumin/Globulin [Mass ratio] 0.9 {ratio} 0.9-2.4 [facility] Serum or plasma calcium criss urement (mass/volume)Ordered By: Tony Zapien on 03-29-2023 Calcium [Mass/Vol] 9.2 mg/dL 8.5-10.1 [facility] Serum or plasma creatinine m easurement (mass/volume)Ordered By: Tony Zapien on 03-29-2023 Creatinine [Mass/Vol] 1.04 mg/dL 0.55-1.02 [facility] Comment on above: The validity of the calculated GFR & GFRAA in patients over 70 years has not been determined. Clinical correlation is essential. Serum or plasma urea nitroge n measurement (mass/volume)Ordered By: Tony Zapien on 03-29-2023 Urea nitrogen [Mass/Vol] 20 mg/dL 7-18 [facility] Thin prep Papanicolaou smear with manual screeningOrdered By: Tony Zapien on 03-29-2023 Thin prep Papanicolaou smear with manual screening 23 U/L 15-37 [facility] Thin prep Papanicolaou smear with manual screening 7 5-15 [facility] Absolute lymphocyte countOrd ered By: Matteo Anderson on 02-24-2023 Lymphocytes Auto (Unsp spec) [#/Vol] 1.69 10*3/uL 0.83-4.51 [facility] Basophil percentageOrdered B y: Matteo Anderson on 02-24-2023 Basophil percentage 94 mg/dL 74-106 [facility] Basophil percentage 137 mmol/L 136-145 [facility] Basophil percentage 4.3 mmol/L 3.5-5.1 [facility] Basophil percentage 107 mmol/L 98-107 [facility] Chloride [Moles/Vol] 107 mmol/L 98-107 [facility] Glucose [Mass/Vol] 94 mg/dL 74-106 [facility] Potassium [Moles/Vol] 4.3 mmol/L 3.5-5.1 [facility] Comment on above: Slight Hemolysis, Re sult may be falsely increased. Sodium [Moles/Vol] 137 mmol/L 136-145 [facility] Basophils (Bld) [#/Vol] 4.1 10*3/uL 4.4-11.0 [facility] Basophils (Bld) [#/Vol] 1.7 10*3/uL 2.0-7.7 [facility] Basophils/100 WBC (Bld) 42.1 % 47-70 [facility] Basophils/100 WBC (Bld) 1.0 % 0-5 [facility] Basophils/100 WBC (Bld) 0.5 % 0-1 [facility] Eosinophils/100 WBC (Bld) 1.0 % 0-5 [facility] Neutrophils (Bld) [#/Vol] 1.7 10*3/uL 2.0-7.7 [facility] Neutrophils/100 WBC (Bld) 42.1 % 47-70 [facility] WBC (Bld) [#/Vol] 4.1 10*3/uL 4.4-11.0 [facility] Blood erythrocytes count (nu mber/volume)Ordered By: Matteo Anderson on 02-24-2023 RBC (Bld) [#/Vol] 4.42 10*6/uL 4.2-5.4 [facility] Blood hemoglobin measurement (mass/volume)Ordered By: Matteo Anderson on 02-24-2023 Hemoglobin (Bld) [Mass/Vol] 14.0 g/dL 12.0-15.0 [facility] Blood lymphocytes/100 leukoc ytesOrdered By: Matteo Anderson on 02-24-2023 Lymphocytes/100 WBC (Bld) 41.1 % 19-41 [facility] Blood monocytes/100 leukocyt esOrdered By: [facility] Monocytes/100 WBC (Bld) 15.1 % 0-10 [facility] Blood platelet mean volumeOr dered By: Matteo Anderson on 02-24-2023 Platelet mean volume (Bld) [Entitic vol] 10.1 fL 6.2-12.0 [facility] Determination of erythrocyte mean corpuscular volume (MCV)Ordered By: Matteo Anderson on 02-24-2023 MCV (RBC) [Entitic vol] 96.2 fL 81-99 [facility] Hematocrit Auto (Bld) [Volum e fraction]Ordered By: Matteo Anderson on 02-24-2023 Hematocrit (Bld) [Volume fraction] 42.5 % 37-47 [facility] Laboratory - Chemistry and C hemistry - challengeOrdered By: Matteo Anderson on 02-24-2023 CO2 [Moles/Vol] 26.0 mmol/L 21.0-32.0 [facility] Magnesium [Mass/Vol] 1.8 mg/dL 1.6-2.6 [facility] Comment on above: Slight Hemolysis, Re sult may be falsely increased. Urea nitrogen/Creatinine [Mass ratio] 23.1 mg/mg 10- [facility] Laboratory - Hematology and Cell countsOrdered By: Matteo Anderson on 02-24-2023 Erythrocyte distribution width (RBC) [Entitic vol] 48.5 fL 35.1-43.9 [facility] Erythrocyte distribution width (RBC) [Ratio] 13.7 % 11.6-14.6 [facility] Immature granulocytes/100 WBC (Bld) 0.200 % 0.0-0.9 [facility] Comment on above: IG% - Immature Granu locytes (promyelocytes, myelocytes and metamyelocytes) > 1% indicates that a LEFT SHIFT is Present. MCH (RBC) [Entitic mass] 31.7 pg 27.0-32.0 [facility] Nucleated RBC/100 WBC (Bld) [Ratio] 0 % 0-5 [facility] MCHC Auto (RBC) [Mass/Vol]Or dered By: Matteo Anderson on 02-24-2023 MCHC (RBC) [Mass/Vol] 32.9 g/dL 32-36 [facility] No Panel InformationOrdered By: Matteo Anderson on 02-24-2023 Estimated Creatinine Clearance Calc 36.70 ml/min [facility] Estimated GFR (MDRD) Amer 68 mL/min >60 [facility] Comment on above: GFR Calc Estimated GFR (MDRD) Non-Af Amer 56 mL/min >60 [facility] Comment on above: Non- GFR Calc Thyroid Stimulating Hormone (TSH) 5.58 uIU/mL 0.358-3.74 [facility] 56 mL/min >60 [facility] 68 mL/min >60 [facility] 36.70 ml/min [facility] 23.1 RATIO 02-19 [facility] 1.8 mg/dL 1.6-2.6 [facility] 26.0 mmol/L 21.0-32.0 [facility] 5.58 uIU/mL 0.358-3.74 [facility] 31.7 pg 27.0-32.0 [facility] 13.7 % 11.6-14.6 [facility] 48.5 fl 35.1-43.9 [facility] 0.200 % 0.0-0.9 [facility] 0 % 0-5 [facility] Platelets bldOrdered By: Victorino Anderson on 02-24-2023 Platelets (Bld) [#/Vol] 167 10*3/uL 150-450 [facility] Serum or plasma calcium criss urement (mass/volume)Ordered By: Matteo Anderson on 02-24-2023 Calcium [Mass/Vol] 8.2 mg/dL 8.5-10.1 [facility] Serum or plasma creatinine m easurement (mass/volume)Ordered By: Matteo Anderson on 02-24-2023 Creatinine [Mass/Vol] 0.99 mg/dL 0.55-1.02 [facility] Comment on above: The validity of the calculated GFR & GFRAA in patients over 70 years has not been determined. Clinical correlation is essential. Serum or plasma urea nitroge n measurement (mass/volume)Ordered By: Matteo Anderson on 02-24-2023 Urea nitrogen [Mass/Vol] 23 mg/dL 7-18 [facility] Thin prep Papanicolaou smear with manual screeningOrdered By: Matteo Anderson on 02-24-2023 Thin prep Papanicolaou smear with manual screening 4 5-15 [facility] Absolute lymphocyte countOrd ered By: Seth Garcia on 02-23-2023 Lymphocytes Auto (Unsp spec) [#/Vol] 1.60 10*3/uL 0.83-4.51 [facility] Basophil percentageOrdered B y: Seth Garcia on 02-23-2023 Basophil percentage 156 mg/dL 74-106 [facility] Basophil percentage 129 mmol/L 136-145 [facility] Basophil percentage 5.0 mmol/L 3.5-5.1 [facility] Basophil percentage 96 mmol/L 98-107 [facility] Basophils (Bld) [#/Vol] 8.0 10*3/uL 4.4-11.0 [facility] Basophils (Bld) [#/Vol] 5.5 10*3/uL 2.0-7.7 [facility] Basophils/100 WBC (Bld) 68.3 % 47-70 [facility] Basophils/100 WBC (Bld) 0.4 % 0-5 [facility] Basophils/100 WBC (Bld) 0.5 % 0-1 [facility] Blood erythrocytes count (nu mber/volume)Ordered By: Seth Garcia on 02-23-2023 RBC (Bld) [#/Vol] 5.03 10*6/uL 4.2-5.4 [facility] Blood hemoglobin measurement (mass/volume)Ordered By: Seth Garcia on 02-23-2023 Hemoglobin (Bld) [Mass/Vol] 15.8 g/dL 12.0-15.0 [facility] Blood lymphocytes/100 leukoc ytesOrdered By: Seth Garcia on 02-23-2023 Lymphocytes/100 WBC (Bld) 20.1 % 19-41 [facility] Blood monocytes/100 leukocyt esOrdered By: Sethbasil Garcia on 02-23-2023 Monocytes/100 WBC (Bld) 10.2 % 0-10 [facility] Blood platelet mean volumeOr dered By: Seth Garcia on 02-23-2023 Platelet mean volume (Bld) [Entitic vol] 10.4 fL 6.2-12.0 [facility] Determination of erythrocyte mean corpuscular volume (MCV)Ordered By: Seth Garcia on 02-23-2023 MCV (RBC) [Entitic vol] 95.8 fL 81-99 [facility] Hematocrit Auto (Bld) [Volum e fraction]Ordered By: Seth Garcia on 02-23-2023 Hematocrit (Bld) [Volume fraction] 48.2 % 37-47 [facility] MCHC Auto (RBC) [Mass/Vol]Or dered By: Seth Garcia on 02-23-2023 MCHC (RBC) [Mass/Vol] 32.8 g/dL 32-36 [facility] No Panel InformationOrdered By: Seth Garcia on 02-23-2023 Troponin I High Sensitivity 40 pg/mL 3.0-54.0 [facility] Comment on above: Please Note: New Sarah t Units and Gender Specific Reference Ranges. For more information see Policy Stat Procedure Point High Sensitivity Troponin (TNIH) and attachments. 31.4 pg 27.0-32.0 [facility] 13.6 % 11.6-14.6 [facility] 48.4 fl 35.1-43.9 [facility] 0.500 % 0.0-0.9 [facility] 0 % 0-5 [facility] 31 mL/min >60 [facility] 37 mL/min >60 [facility] 20.75 ml/min [facility] 20.1 RATIO 10-20 [facility] 40 pg/mL 3.0-54.0 [facility] 23.0 mmol/L 21.0-32.0 [facility] Platelets bldOrdered By: Joyce Garcia on 02-23-2023 Platelets (Bld) [#/Vol] 239 10*3/uL 150-450 [facility] Serum or plasma calcium criss urement (mass/volume)Ordered By: Seth Garcia on 02-23-2023 Calcium [Mass/Vol] 9.6 mg/dL 8.5-10.1 [facility] Serum or plasma creatinine m easurement (mass/volume)Ordered By: Seth Garcia on 02-23-2023 Creatinine [Mass/Vol] 1.69 mg/dL 0.55-1.02 [facility] Serum or plasma urea nitroge n measurement (mass/volume)Ordered By: Seth Garcia on 02-23-2023 Urea nitrogen [Mass/Vol] 34 mg/dL 11-17 [facility] Thin prep Papanicolaou smear with manual screeningOrdered By: Seth Garcia on 02-23-2023 Thin prep Papanicolaou smear with manual screening 10 5-15 [facility] Qualitative QuantiFERON-TB g old in tube testOrdered By: Leena Serra on 02-17-2023 M. tuberculosis tuberculin stim IFN-g Ql (Bld) 0.05 IU/mL . [facility] Thin prep Papanicolaou smear with manual screeningOrdered By: Leena Serra on 02-17-2023 Thin prep Papanicolaou smear with manual screening Comment . [facility] Comment on above: QuantiFERON-TB [...] smear with manual screening 0.05 IU/mL . [facility] Thin prep Papanicolaou smear with manual screening 0.03 IU/mL . [facility] Thin prep Papanicolaou smear with manual screening > 10.00 IU/mL . [facility] Thin prep Papanicolaou smear with manual screening Negative Negative [facility] Comment on above: No [...] the productionof interferon gamma. Chemiluminescence immunoassaymethodologyPerformed at: [employer] [facility] [address] [id number] Director: Maxx Yi PhD, Phone: [phone] Absolute lymphocyte countOrd ered By: Miriam Reyes on 01-27-2023 Lymphocytes Auto (Unsp spec) [#/Vol] 1.13 10*3/uL 0.83-4.51 [facility] Basophil percentageOrdered B y: Miriam Reyes on 01-27-2023 Basophil percentage 141 mg/dL 74-106 [facility] Basophil percentage 131 mmol/L 136-145 [facility] Basophil percentage 3.9 mmol/L 3.5-5.1 [facility] Basophil percentage 101 mmol/L 98-107 [facility] Basophils (Bld) [#/Vol] 6.5 10*3/uL 4.4-11.0 [facility] Basophils (Bld) [#/Vol] 4.7 10*3/uL 2.0-7.7 [facility] Basophils/100 WBC (Bld) 0.5 % 0-1 [facility] Basophils/100 WBC (Bld) 72.7 % 47-70 [facility] Basophils/100 WBC (Bld) 0.3 % 0-5 [facility] Chloride [Moles/Vol] 101 mmol/L 98-107 [facility] Eosinophils/100 WBC (Bld) 0.3 % 0-5 [facility] Glucose [Mass/Vol] 141 mg/dL 74-106 [facility] Comment on above: Fasting Glucose resu lt greater than or equal to 126 mg/dL suggests DIABETES MELLITUS per A.D.A. criteria. Neutrophils (Bld) [#/Vol] 4.7 10*3/uL 2.0-7.7 [facility] Neutrophils/100 WBC (Bld) 72.7 % 47-70 [facility] Potassium [Moles/Vol] 3.9 mmol/L 3.5-5.1 [facility] Sodium [Moles/Vol] 131 mmol/L 136-145 [facility] WBC (Bld) [#/Vol] 6.5 10*3/uL 4.4-11.0 [facility] Blood erythrocytes count (nu mber/volume)Ordered By: Miriam Reyes on 01-27-2023 RBC (Bld) [#/Vol] 4.45 10*6/uL 4.2-5.4 [facility] Blood hemoglobin measurement (mass/volume)Ordered By: Miriam Reyes on 01-27-2023 Hemoglobin (Bld) [Mass/Vol] 14.4 g/dL 12.0-15.0 [facility] Blood lymphocytes/100 leukoc ytesOrdered By: Miriam Reyes on 01-27-2023 Lymphocytes/100 WBC (Bld) 17.4 % 19-41 [facility] Blood monocytes/100 leukocyt esOrdered By: Miriam Reyes on 01-27-2023 Monocytes/100 WBC (Bld) 8.8 % 0-10 [facility] Blood platelet mean volumeOr dered By: Miriam Reyes on 01-27-2023 Platelet mean volume (Bld) [Entitic vol] 10.5 fL 6.2-12.0 [facility] Determination of erythrocyte mean corpuscular volume (MCV)Ordered By: Miriam Reyes on 01-27-2023 MCV (RBC) [Entitic vol] 97.5 fL 81-99 [facility] Hematocrit Auto (Bld) [Volum e fraction]Ordered By: Miriam Reyes on 01-27-2023 Hematocrit (Bld) [Volume fraction] 43.4 % 37-47 [facility] Laboratory - Chemistry and C hemistry - challengeOrdered By: Miriam Reyes on 01-27-2023 CO2 [Moles/Vol] 24.0 mmol/L 21.0-32.0 [facility] Natriuretic peptide B (Bld) [Mass/Vol] 627.5 pg/mL 0-100 [facility] Urea nitrogen/Creatinine [Mass ratio] 24.2 mg/mg 10-20 [facility] Laboratory - Hematology and Cell countsOrdered By: Miriam Reyse on 01-27-2023 Erythrocyte distribution width (RBC) [Entitic vol] 50.1 fL 35.1-43.9 [facility] Erythrocyte distribution width (RBC) [Ratio] 14.1 % 11.6-14.6 [facility] Immature granulocytes/100 WBC (Bld) 0.300 % 0.0-0.9 [facility] Comment on above: IG% - Immature Granu locytes (promyelocytes, myelocytes and metamyelocytes) > 1% indicates that a LEFT SHIFT is Present. MCH (RBC) [Entitic mass] 32.4 pg 27.0-32.0 [facility] Nucleated RBC/100 WBC (Bld) [Ratio] 0 % 0-5 [facility] MCHC Auto (RBC) [Mass/Vol]Or dered By: Miriam Reyes on 01-27-2023 MCHC (RBC) [Mass/Vol] 33.2 g/dL 32-36 [facility] No Panel InformationOrdered By: Miriam Reyes on 01-27-2023 Estimated GFR (MDRD) Amer 68 mL/min >60 [facility] Comment on above: GFR Calc Estimated GFR (MDRD) Non-Af Amer 56 mL/min >60 [facility] Comment on above: Non- GFR Calc Troponin I High Sensitivity 31 pg/mL 3.0-54.0 [facility] Comment on above: Please Note: New Sarah t Units and Gender Specific Reference Ranges. For more information see Policy Stat Procedure Point High Sensitivity Troponin (TNIH) and attachments. 32.4 pg 27.0-32.0 [facility] 14.1 % 11.6-14.6 [facility] 50.1 fl 35.1-43.9 [facility] 0.300 % 0.0-0.9 [facility] 0 % 0-5 [facility] 56 mL/min >60 [facility] 68 mL/min >60 [facility] 24.2 RATIO 10-20 [facility] 31 pg/mL 3.0-54.0 [facility] 24.0 mmol/L 21.0-32.0 [facility] 627.5 pg/mL 0-100 [facility] Platelets bldOrdered By: Batsheva Reyes on 01-27-2023 Platelets (Bld) [#/Vol] 196 10*3/uL 150-450 [facility] Serum or plasma calcium criss urement (mass/volume)Ordered By: Miriam Reyes on 01-27-2023 Calcium [Mass/Vol] 9.1 mg/dL 8.5-10.1 [facility] Serum or plasma creatinine m easurement (mass/volume)Ordered By: Miriam Reyes on 01-27-2023 Creatinine [Mass/Vol] 0.99 mg/dL 0.55-1.02 [facility] Comment on above: The validity of the calculated GFR & GFRAA in patients over 70 years has not been determined. Clinical correlation is essential. Serum or plasma urea nitroge n measurement (mass/volume)Ordered By: Miriam Reyes on 01-27-2023 Urea nitrogen [Mass/Vol] 24 mg/dL 7-18 [facility] Thin prep Papanicolaou smear with manual screeningOrdered By: Miriam Reyes on 01-27-2023 Thin prep Papanicolaou smear with manual screening 6 5-15 [facility] Absolute lymphocyte countOrd ered By: Sharad Londono on 01-25-2023 Lymphocytes Auto (Unsp spec) [#/Vol] 1.01 10*3/uL 0.83-4.51 [facility] Basophil percentageOrdered B y: Sharad Londono on 01-25-2023 Basophil percentage 114 mg/dL 74-106 [facility] Basophil percentage 6.8 g/dL 6.4-8.2 [facility] Basophil percentage 0.60 mg/dL 0.20-1.00 [facility] Basophil percentage 133 mmol/L 136-145 [facility] Basophil percentage 4.3 mmol/L 3.5-5.1 [facility] Basophil percentage 100 mmol/L 98-107 [facility] Basophils (Bld) [#/Vol] 5.2 10*3/uL 4.4-11.0 [facility] Basophils (Bld) [#/Vol] 3.6 10*3/uL 2.0-7.7 [facility] Basophils/100 WBC (Bld) 0.6 % 0-1 [facility] Basophils/100 WBC (Bld) 68.1 % 47-70 [facility] Basophils/100 WBC (Bld) 0.8 % 0-5 [facility] Bilirubin [Mass/Vol] 0.60 mg/dL 0.20-1.00 [facility] Comment on above: For patients on eltr ombopag therapy, use of [place] TBIL is not recommended. Chloride [Moles/Vol] 100 mmol/L 98-107 [facility] Eosinophils/100 WBC (Bld) 0.8 % 0-5 [facility] Glucose [Mass/Vol] 114 mg/dL 74-106 [facility] Comment on above: Fasting Glucose resu lt from 100 to 125 mg/dL suggests IMPAIRED HOMEOSTASIS per A.D.A. criteria. Neutrophils (Bld) [#/Vol] 3.6 10*3/uL 2.0-7.7 [facility] Neutrophils/100 WBC (Bld) 68.1 % 47-70 [facility] Potassium [Moles/Vol] 4.3 mmol/L 3.5-5.1 [facility] Protein [Mass/Vol] 6.8 g/dL 6.4-8.2 [facility] Sodium [Moles/Vol] 133 mmol/L 136-145 [facility] WBC (Bld) [#/Vol] 5.2 10*3/uL 4.4-11.0 [facility] Blood erythrocytes count (nu mber/volume)Ordered By: Sharad Londono on 01-25-2023 RBC (Bld) [#/Vol] 4.33 10*6/uL 4.2-5.4 [facility] Blood hemoglobin measurement (mass/volume)Ordered By: Sharad Londono on 01-25-2023 Hemoglobin (Bld) [Mass/Vol] 13.9 g/dL 12.0-15.0 [facility] Blood lymphocytes/100 leukoc ytesOrdered By: Sharad Londono on 01-25-2023 Lymphocytes/100 WBC (Bld) 19.4 % 19-41 [facility] Blood monocytes/100 leukocyt esOrdered By: Sharad Londono on 01-25-2023 Monocytes/100 WBC (Bld) 10.9 % 0-10 [facility] Blood platelet mean volumeOr dered By: Sharad Londono on 01-25-2023 Platelet mean volume (Bld) [Entitic vol] 11.4 fL 6.2-12.0 [facility] Determination of erythrocyte mean corpuscular volume (MCV)Ordered By: Sharad Londono on 01-25-2023 MCV (RBC) [Entitic vol] 97.2 fL 81-99 [facility] Hematocrit Auto (Bld) [Volum e fraction]Ordered By: Sharad Londono on 01-25-2023 Hematocrit (Bld) [Volume fraction] 42.1 % 37-47 [facility] Laboratory - Chemistry and C hemistry - challengeOrdered By: Sharad Londono on 01-25-2023 ALP [Catalytic activity/Vol] 76 U/L 45-117 [facility] ALT [Catalytic activity/Vol] 57 U/L 13-56 [facility] CO2 [Moles/Vol] 25.0 mmol/L 21.0-32.0 [facility] Globulin (S) [Mass/Vol] 3.3 g/dL 2.2-4.2 [facility] Magnesium [Mass/Vol] 2.4 mg/dL 1.6-2.6 [facility] Natriuretic peptide B (Bld) [Mass/Vol] 331.5 pg/mL 0-100 [facility] Urea nitrogen/Creatinine [Mass ratio] 19.8 mg/mg 10-20 [facility] Laboratory - Hematology and Cell countsOrdered By: Sharad Londono on 01-25-2023 Erythrocyte distribution width (RBC) [Entitic vol] 49.8 fL 35.1-43.9 [facility] Erythrocyte distribution width (RBC) [Ratio] 14.0 % 11.6-14.6 [facility] Immature granulocytes/100 WBC (Bld) 0.200 % 0.0-0.9 [facility] Comment on above: IG% - Immature Granu locytes (promyelocytes, myelocytes and metamyelocytes) > 1% indicates that a LEFT SHIFT is Present. MCH (RBC) [Entitic mass] 32.1 pg 27.0-32.0 [facility] Nucleated RBC/100 WBC (Bld) [Ratio] 0 % 0-5 [facility] MCHC Auto (RBC) [Mass/Vol]Or dered By: Sharad Londono on 01-25-2023 MCHC (RBC) [Mass/Vol] 33.0 g/dL 32-36 [facility] No Panel InformationOrdered By: Sharad Londono on 01-25-2023 Estimated GFR (MDRD) Amer 60 mL/min >60 [facility] Comment on above: GFR Calc Estimated GFR (MDRD) Non-Af Amer 50 mL/min >60 [facility] Comment on above: Non- GFR Calc Thyroid Stimulating Hormone (TSH) 3.28 uIU/mL 0.358-3.74 [facility] 32.1 pg 27.0-32.0 [facility] 14.0 % 11.6-14.6 [facility] 49.8 fl 35.1-43.9 [facility] 0.200 % 0.0-0.9 [facility] 0 % 0-5 [facility] 50 mL/min >60 [facility] 60 mL/min >60 [facility] 19.8 RATIO 10-20 [facility] 3.3 g/dL 2.2-4.2 [facility] 76 U/L 45-117 [facility] 57 U/L 13-56 [facility] 2.4 mg/dL 1.6-2.6 [facility] 25.0 mmol/L 21.0-32.0 [facility] 3.28 uIU/mL 0.358-3.74 [facility] 331.5 pg/mL 0-100 [facility] Platelets bldOrdered By: Kayden Londono on 01-25-2023 Platelets (Bld) [#/Vol] 193 10*3/uL 150-450 [facility] Serum or plasma albumin criss urement (mass/volume)Ordered By: Sharad Londono on 01-25-2023 Albumin [Mass/Vol] 3.5 g/dL 3.2-5.0 [facility] Serum or plasma albumin/glob ulin mass ratioOrdered By: Sharad Londono on 01-25-2023 Albumin/Globulin [Mass ratio] 1.1 {ratio} 0.9-2.4 [facility] Serum or plasma calcium criss urement (mass/volume)Ordered By: Sharad Londono on 01-25-2023 Calcium [Mass/Vol] 9.3 mg/dL 8.5-10.1 [facility] Serum or plasma creatinine m easurement (mass/volume)Ordered By: Sharad Londono on 01-25-2023 Creatinine [Mass/Vol] 1.11 mg/dL 0.55-1.02 [facility] Comment on above: The validity of the calculated GFR & GFRAA in patients over 70 years has not been determined. Clinical correlation is essential. Serum or plasma urea nitroge n measurement (mass/volume)Ordered By: Sharad Londono on 01-25-2023 Urea nitrogen [Mass/Vol] 22 mg/dL 7-18 [facility] Thin prep Papanicolaou smear with manual screeningOrdered By: Sharad Londono on 01-25-2023 Thin prep Papanicolaou smear with manual screening 23 U/L 15-37 [facility] Thin prep Papanicolaou smear with manual screening 8 5-15 [facility] Absolute lymphocyte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 distribution width (RBC) [Ratio] 13.6 % 11.6-14.6 [facility] Immature granulocytes/100 WBC (Bld) 0.200 % 0.0-0.9 [facility] Comment on above: IG% - Immature Granu locytes (promyelocytes, myelocytes and metamyelocytes) > 1% indicates that a LEFT SHIFT is Present. MCH (RBC) [Entitic mass] 31.9 pg 27.0-32.0 [facility] Nucleated RBC/100 WBC (Bld) [Ratio] 0 % 0-5 [facility] MCHC Auto (RBC) [Mass/Vol]Or dered By: Dr. Jonas on 04-16-2022 MCHC (RBC) [Mass/Vol] 33.4 g/dL 32-36 [facility] No Panel InformationOrdered By: Dr. Jonas on 04-16-2022 Estimated Creatinine Clearance Calc 37.01 ml/min [facility] Estimated GFR (MDRD) Amer 102 mL/min >60 [facility] Comment on above: GFR Calc Estimated GFR (MDRD) Non-Af Amer 84 mL/min >60 [facility] Comment on above: Non- GFR Calc Platelets bldOrdered By: Dr. Jonas on 04-16-2022 Platelets (Bld) [#/Vol] 174 10*3/uL 150-450 [facility] Serum or plasma albumin criss urement (mass/volume)Ordered By: Dr. Jonas on 04-16-2022 Albumin [Mass/Vol] 3.4 g/dL 3.2-5.0 [facility] Serum or plasma albumin/glob ulin mass ratioOrdered By: Dr. Jonas on 04-16-2022 Albumin/Globulin [Mass ratio] 1.0 {ratio} 0.9-2.4 [facility] Serum or plasma calcium criss urement (mass/volume)Ordered By: Dr. Jonas on 04-16-2022 Calcium [Mass/Vol] 8.6 mg/dL 8.5-10.1 [facility] Serum or plasma creatinine m easurement (mass/volume)Ordered By: Dr. Jonas on 04-16-2022 Creatinine [Mass/Vol] 0.70 mg/dL 0.55-1.02 [facility] Comment on above: The validity of the calculated GFR & GFRAA in patients over 70 years has not been determined. Clinical correlation is essential. Serum or plasma urea nitroge n measurement (mass/volume)Ordered By: Dr. Jonas on 04-16-2022 Urea nitrogen [Mass/Vol] 15 mg/dL 7-18 [facility] Thin prep Papanicolaou smear with manual screeningOrdered By: Dr. Jonas on 04-16-2022 Thin prep Papanicolaou smear with manual screening 14 U/L 15-37 [facility] Thin prep Papanicolaou smear with manual screening 5 5-15 [facility] Thin prep Papanicolaou smear with manual screening 164 U/L 84-246 [facility] CNCOon 04-10-2022 CNCO Letter Text Normal [facility] CNOVon 04-09-2022 CNOV Office Visit (AGHWW1 ) GRADYROBERTO Juares ([id number]) 1935 F Date Time Provider Department 04/09/22 [...] treated at a wound care clinic in [place]. Hx of RA on immunosuppressive therapy. She [...] daily. MULTI-VITAMIN ORAL Take by mouth. Vitamin S09-Nbiebun B1 5.5-12.5 mg-mcg/5 mL Liqd Take by mouth. CALCIUM CARBONATE (CALCIUM 600 ORAL) Take by mouth twice daily. [place]-3 Fatty Acids-Vitamin E 1,000 mg cap Take [...] distal fi (more content not included)... Normal [facility] CBC W Auto Differential pane l (Bld)on 04-01-2022 Basophils (Bld) [#/Vol] 10*3/uL Normal <0.11 [facility] Comment on above: Order Comment: Tazi david Type: BLOOD SPECIMEN Ordering Facility: [facility] Address: [address] [place] [address] Performed By: #### 5 7021-8 #### [facility] CLIA [id number] [address] [place] [address] [place] Basophils/100 WBC (Bld) 0.4 % Normal [facility] Comment on above: Order Comment: Selvin hernandez Type: BLOOD SPECIMEN Ordering Facility: [facility] Address: [address] [place] [address] Performed By: #### 5 7021-8 #### [facility] CLIA [id number] [address] [place] [address] [place] Differential cell count method Nom (Bld) Auto Normal [facility] Comment on above: Order Comment: Speci men Type: BLOOD SPECIMEN Ordering Facility: [facility] Address: [address] [place] [address] Performed By: #### 5 7021-8 #### [facility] CLIA [id number] [address] [place] [address] [place] Eosinophils (Bld) [#/Vol] 0.04 10*3/uL Normal <0.46 [facility] Comment on above: Order Comment: Speci men Type: BLOOD SPECIMEN Ordering Facility: [facility] Address: [address] [place] [place] [address] Performed By: #### 5 7021-8 #### [facility] CLIA [id number] [address] [place] [address] [place] Eosinophils/100 WBC (Bld) 0.7 % Normal [facility] Comment on above: Order Comment: Speci men Type: BLOOD SPECIMEN Ordering Facility: [facility] Address: [address] Performed By: #### 5 7021-8 #### [facility] CLIA [id number] [address] [place] [address] [place] Erythrocyte distribution width (RBC) [Ratio] 13.6 % Normal 11.5-15.0 [facility] Comment on above: Order Comment: Speci men Type: BLOOD SPECIMEN Ordering Facility: [facility] Address: [address] Performed By: #### 5 7021-8 #### [facility] CLIA [id number] [address] [place] [address] [place] Hematocrit (Bld) [Volume fraction] 40.8 % Normal 36.0-46.0 [facility] Comment on above: Order Comment: Speci men Type: BLOOD SPECIMEN Ordering Facility: [facility] Address: [address] Performed By: #### 5 7021-8 #### [facility] CLIA [id number] [address] [place] [address] [place] Hemoglobin (Bld) [Mass/Vol] 13.5 g/dL Normal 11.5-15.5 [facility] Comment on above: Order Comment: Speci men Type: BLOOD SPECIMEN Ordering Facility: [facility] Address: [address] Performed By: #### 5 7021-8 #### [facility] CLIA [id number] [address] [place] [address] [place] Immature granulocytes (Bld) [#/Vol] 10*3/uL Normal <0.10 [facility] Comment on above: Order Comment: Speci men Type: BLOOD SPECIMEN Ordering Facility: [facility] Address: [address] [place] [address] Performed By: #### 5 7021-8 #### [facility] CLIA [id number] [address] [place] [address] [place] Immature granulocytes/100 WBC (Bld) 0.4 % Normal [facility] Comment on above: Order Comment: Speci men Type: BLOOD SPECIMEN Ordering Facility: [facility] Address: [address] [place] [address] Performed By: #### 5 7021-8 #### [facility] CLIA [id number] [address] [place] [address] [place] Lymphocytes (Bld) [#/Vol] 1.44 10*3/uL Normal 1.00-4.00 [facility] Comment on above: Order Comment: Speci men Type: BLOOD SPECIMEN Ordering Facility: [facility] Address: [address] [place] [address] Performed By: #### 5 7021-8 #### [facility] CLIA [id number] [address] [place] [address] [place] Lymphocytes/100 WBC (Bld) 26.5 % Normal [facility] Comment on above: Order Comment: Speci men Type: BLOOD SPECIMEN Ordering Facility: [facility] Address: [address] [place] [address] Performed By: #### 5 7021-8 #### [facility] CLIA [id number] [address] [place] [address] [place] MCH (RBC) [Entitic mass] 31.0 pg Normal 26.0-34.0 [facility] Comment on above: Order Comment: Speci men Type: BLOOD SPECIMEN Ordering Facility: [facility] Address: [address] [place] [address] Performed By: #### 5 7021-8 #### [facility] CLIA [id number] [address] [place] [address] [place] MCHC (RBC) [Mass/Vol] 33.1 g/dL Normal 30.5-36.0 [facility] Comment on above: Order Comment: Speci men Type: BLOOD SPECIMEN Ordering Facility: [facility] Address: [address] [place] [address] Performed By: #### 5 7021-8 #### [id number] [address] [place] [address] [place] MCV (RBC) [Entitic vol] 93.6 fL Normal 80.0-100.0 [facility] Comment on above: Order Comment: Speci men Type: BLOOD SPECIMEN Ordering Facility: [facility] Address: [address] [place], [place] [address] Performed By: #### 5 7021-8 #### [facility] [id number] [address] [place] [address] [place] Monocytes (Bld) [#/Vol] 0.56 10*3/uL Normal <0.87 [facility] Comment on above: Order Comment: Speci men Type: BLOOD SPECIMEN Ordering Facility: [facility] Address: [address] [place], [place] [address] Performed By: #### 5 7021-8 #### [facility] [id number] [address] [place] [address] [place] Monocytes/100 WBC (Bld) 10.3 % Normal [facility] Comment on above: Order Comment: Speci men Type: BLOOD SPECIMEN Ordering Facility: [facility] Address: [address] Performed By: #### 5 7021-8 #### [facility] CLIA [id number] [address] [place] [address] [place] Neutrophils (Bld) [#/Vol] 3.36 10*3/uL Normal 1.45-7.50 [facility] Comment on above: Order Comment: Speci men Type: BLOOD SPECIMEN Ordering Facility: [facility] Address: [address] Performed By: #### 5 7021-8 #### [facility] CLIA [id number] [address] [place] [address] [place] Neutrophils/100 WBC (Bld) 61.7 % Normal [facility] Comment on above: Order Comment: Speci men Type: BLOOD SPECIMEN Ordering Facility: [facility] Address: [address] Performed By: #### 5 7021-8 #### [facility] CLIA [id number] [address] [place] [address] [place] [place] Nucleated RBC (Bld) [#/Vol] 10*3/uL Normal <0.01 [facility] Comment on above: Order Comment: Speci men Type: BLOOD SPECIMEN Ordering Facility: [facility] Address: [address] Performed By: #### 5 7021-8 #### [facility] CLIA [id number] [address] [place] [address] [place] Nucleated RBC/100 WBC (Bld) [Ratio] 0.0 /100 WBC Normal [facility] Comment on above: Order Comment: Speci men Type: BLOOD SPECIMEN Ordering Facility: [facility] Address: [address] Performed By: #### 5 7021-8 #### [facility] CLIA [id number] [address] [place] [address] [place] Platelet mean volume (Bld) [Entitic vol] 10.7 fL Normal 9.0-12.7 [facility] Comment on above: Order Comment: Speci men Type: BLOOD SPECIMEN Ordering Facility: [facility] Address: [address] [place] [address] Performed By: #### 5 7021-8 #### [facility] CLIA [id number] [address] [place] [address] [place] Platelets (Bld) [#/Vol] 192 10*3/uL Normal 150-400 [facility] Comment on above: Order Comment: Speci men Type: BLOOD SPECIMEN Ordering Facility: [facility] Address: [address] [place] [address] Performed By: #### 5 7021-8 #### [facility] CLIA [id number] [address] [place] [address] [place] RBC (Bld) [#/Vol] 4.36 10*6/uL Normal 3.90-5.20 [facility] Comment on above: Order Comment: Speci men Type: BLOOD SPECIMEN Ordering Facility: [facility] Address: [address] [place] [address] Performed By: #### 5 7021-8 #### [facility] CLIA [id number] [address] [place] [address] [place] WBC (Bld) [#/Vol] 5.44 10*3/uL Normal 3.70-11.00 [facility] Comment on above: Order Comment: Speci men Type: BLOOD SPECIMEN Ordering Facility: [facility] Address: [address] [place] [address] Performed By: #### 5 7021-8 #### [facility] CLIA [id number] [address] [place] [address] [place] CRP SerPl-mCncon 11-30-2022 CRP [Mass/Vol] 0.4 mg/dL Normal <0.9 [facility] Comment on above: Order Comment: Speci men Type: BLOOD SPECIMEN Ordering Facility: [facility] Address: [place] [address] Performed By: #### 1 988-5 #### [facility] CLIA [id number] [address] [place] [address] [place] [facility] ESR Westergren method (Bld) [Velocity]on 04-01-2022 ESR (Bld) [Velocity] 8 mm/h Normal 0-20 [facility] Comment on above: Order Comment: Speci men Type: BLOOD SPECIMEN Ordering Facility: [facility] Address: [place] [address] Performed By: #### 4 537-7 #### [facility] CLIA [id number] [address] [place] [address] OF [facility] PVR ANK/FALL/TOE [facility] on 04-01-2022 PVR ANK/FALL/TOE [facility] Non-Invasive Vascular Laboratory [facility] Lower Extremity Arterial Physiology Study Bilateral/Complete Date [...] Normal at rest. Technologist: Hilda Cano T, [facility] Ordering physician: MARCUS MELLO Interpreting physician: Linda Rose MD, RPMARIA TERESA Final CC [employer] [facility] : [id number] oDynamicsSISUID See Link below for Image Normal [facility] CNOVon 03-18-2022 CNOV Office Visit (AGPOB1 ) ROBERTO FERGUSON ([id number]) 1935 F Date Time Provider Department 03/18/22 10:00 AM MARCUS MELLOB1 During your visit today, we recorded the [...] She subsequently started seeing another provider in [place] who recommended removal of hardware. She underwent [...] treated at a wound care clinic in [place]. Hx of RA on immunosuppressive therapy. Denies [...] WEEKS. MULTI-VITAMIN ORAL Take by mouth. Vitamin C95-Abmoudb B1 5.5-12.5 mg-mcg/5 mL Liqd Take by mouth. CALCIUM CARBONATE (CALCIUM 600 ORAL) Take by mouth twice daily. [place]-3 Fatty Acids-Vitamin E 1,000 mg cap Take [...] good attention (more content not included)... Normal [facility] CNPNajma 03-18-2022 CNPN Telephone (AGPOB3) ROBERTO FERGUSON ([id number]) 1935 F Date Time Provider Department 03/18/22 MARCUS MELLO AGPOB3 During your visit today, we recorded the following information about you: Tiffani Pulliam 03/18/2022 4:38 PM Signed Patient called to schedule PVR US. The department at the [facility] advises that the patient have the test performed by vascular lab. Please resubmit proper order to reflect appropriate test needed. Please contact [place] at [phone] to update current scheduled appointment if necessary. [...] MULTI-VITAMIN ORAL Take by mouth. - Vitamin M87-Vkmhkab B1 5.5-12.5 mg-mcg/5 mL Liqd Take by mouth. - CALCIUM CARBONATE (CALCIUM 600 ORAL) Take by mouth twice daily. - [place]-3 Fatty Acids-Vitamin E 1,000 mg cap Take [...] Encounter Status:Closed by TIFFANI PULLIAM on 03/18/22 [facility] Qualitative QuantiFERON-TB g old in tube testOrdered By: Dr. Serra on 02-24-2022 M. tuberculosis tuberculin stim IFN-g Ql (Bld) 0.23 IU/mL . [facility] Thin prep Papanicolaou smear with manual screeningOrdered By: Dr. Serra on 02-24-2022 Thin prep Papanicolaou smear with manual screening Comment . [facility] Comment on above: QuantiFERON-TB [...] smear with manual screening 0.07 IU/mL . [facility] Thin prep Papanicolaou smear with manual screening 0.06 IU/mL . [facility] Thin prep Papanicolaou smear with manual screening 9.76 IU/mL . [facility] Thin prep Papanicolaou smear with manual screening Negative Negative [facility] Comment on above: No [...] the productionof interferon gamma. Chemiluminescence immunoassaymethodologyPerformed at: [facility] [address] [id number] Director: Maxx Yi PhD, Phone: [phone] Absolute lymphocyte countOrd ered By: Dr. Hall on 02-09-2022 Lymphocytes Auto (Unsp spec) [#/Vol] 1.01 10*3/uL 0.83-4.51 [facility] Basophil percentageOrdered B y: Dr. Hall on 02-09-2022 Basophils/100 WBC (Bld) 0.5 % 0-1 [facility] Bilirubin [Mass/Vol] 0.50 mg/dL 0.20-1.00 [facility] Comment on above: For patients on eltr ombopag therapy, use of [place] TBIL is not recommended. Chloride [Moles/Vol] 107 mmol/L 98-107 [facility] Eosinophils/100 WBC (Bld) 0.7 % 0-5 [facility] Glucose [Mass/Vol] 111 mg/dL 74-106 [facility] Comment on above: Fasting Glucose resu lt from 100 to 125 mg/dL suggests IMPAIRED HOMEOSTASIS per A.D.A. criteria. Neutrophils (Bld) [#/Vol] 2.6 10*3/uL 2.0-7.7 [facility] Neutrophils/100 WBC (Bld) 61.1 % 47-70 [facility] Potassium [Moles/Vol] 4.3 mmol/L 3.5-5.1 [facility] Protein [Mass/Vol] 7.0 g/dL 6.4-8.2 [facility] Sodium [Moles/Vol] 140 mmol/L 136-145 [facility] WBC (Bld) [#/Vol] 4.3 10*3/uL 4.4-11.0 [facility] Blood erythrocytes count (nu mber/volume)Ordered By: Dr. Hlal on 02-09-2022 RBC (Bld) [#/Vol] 4.49 10*6/uL 4.2-5.4 [facility] Blood hemoglobin measurement (mass/volume)Ordered By: Dr. Hall on 02-09-2022 Hemoglobin (Bld) [Mass/Vol] 13.9 g/dL 12.0-15.0 [facility] Blood lymphocytes/100 leukoc ytesOrdered By: Dr. Hall on 02-09-2022 Lymphocytes/100 WBC (Bld) 23.7 % 19-41 [facility] Blood monocytes/100 leukocyt esOrdered By: Dr. Hall on 02-09-2022 Monocytes/100 WBC (Bld) 13.8 % 0-10 [facility] Blood platelet mean volumeOr dered By: Dr. Hall on 02-09-2022 Platelet mean volume (Bld) [Entitic vol] 11.2 fL 6.2-12.0 [facility] Determination of erythrocyte mean corpuscular volume (MCV)Ordered By: Dr. Hall on 02-09-2022 MCV (RBC) [Entitic vol] 95.5 fL 81-99 [facility] Hematocrit Auto (Bld) [Volum e fraction]Ordered By: Dr. Hall on 02-09-2022 Hematocrit (Bld) [Volume fraction] 42.9 % 37-47 [facility] Laboratory - Chemistry and C hemistry - challengeOrdered By: Dr. Hall on 02-09-2022 ALP [Catalytic activity/Vol] 51 U/L 45-117 [facility] ALT [Catalytic activity/Vol] 24 U/L 13-56 [facility] CO2 [Moles/Vol] 26.0 mmol/L 21.0-32.0 [facility] Globulin (S) [Mass/Vol] 3.4 g/dL 2.2-4.2 [facility] T4 [Mass/Vol] 9.4 ug/dL 4.8-13.9 [facility] Urea nitrogen/Creatinine [Mass ratio] 22.9 mg/mg 10-20 [facility] Laboratory - Hematology and Cell countsOrdered By: Dr. Hall on 02-09-2022 Erythrocyte distribution width (RBC) [Entitic vol] 46.1 fL 35.1-43.9 [facility] Erythrocyte distribution width (RBC) [Ratio] 13.2 % 11.6-14.6 [facility] Immature granulocytes/100 WBC (Bld) 0.200 % 0.0-0.9 [facility] Comment on above: IG% - Immature Granu locytes (promyelocytes, myelocytes and metamyelocytes) > 1% indicates that a LEFT SHIFT is Present. MCH (RBC) [Entitic mass] 31.0 pg 27.0-32.0 [facility] Nucleated RBC/100 WBC (Bld) [Ratio] 0 % 0-5 [facility] MCHC Auto (RBC) [Mass/Vol]Or dered By: Dr. Hall on 02-09-2022 MCHC (RBC) [Mass/Vol] 32.4 g/dL 32-36 [facility] No Panel InformationOrdered By: Dr. Hall on 02-09-2022 Estimated GFR (MDRD) Amer 95 mL/min >60 [facility] Comment on above: GFR Calc Estimated GFR (MDRD) Non-Af Amer 79 mL/min >60 [facility] Comment on above: Non- GFR Calc Thyroid Stimulating Hormone (TSH) 0.46 uIU/mL 0.358-3.74 [facility] Platelets bldOrdered By: Dr. Hall on 02-09-2022 Platelets (Bld) [#/Vol] 184 10*3/uL 150-450 [facility] Serum or plasma albumin criss urement (mass/volume)Ordered By: Dr. Hall on 02-09-2022 Albumin [Mass/Vol] 3.6 g/dL 3.2-5.0 [facility] Serum or plasma albumin/glob ulin mass ratioOrdered By: Dr. Hall on 02-09-2022 Albumin/Globulin [Mass ratio] 1.1 {ratio} 0.9-2.4 [facility] Serum or plasma calcium criss urement (mass/volume)Ordered By: Dr. Hall on 02-09-2022 Calcium [Mass/Vol] 9.5 mg/dL 8.5-10.1 [facility] Serum or plasma creatinine m easurement (mass/volume)Ordered By: Dr. Hall on 02-09-2022 Creatinine [Mass/Vol] 0.74 mg/dL 0.55-1.02 [facility] Comment on above: The validity of the calculated GFR & GFRAA in patients over 70 years has not been determined. Clinical correlation is essential. Serum or plasma urea nitroge n measurement (mass/volume)Ordered By: Dr. Hall on 02-09-2022 Urea nitrogen [Mass/Vol] 17 mg/dL 7-18 [facility] Thin prep Papanicolaou smear with manual screeningOrdered By: Dr. Hall on 02-09-2022 Thin prep Papanicolaou smear with manual screening 17 U/L 15-37 [facility] Thin prep Papanicolaou smear with manual screening 7 5-15 [facility] Absolute lymphocyte counton 11-20-2021 Lymphocytes Auto (Unsp spec) [#/Vol] 1.38 10*3/uL 0.83-4.51 [facility] Work Phone: Basophil percentageon 2021 Bilirubin [Mass/Vol] 0.70 mg/dL 0.20-1.00 [facility] Work Phone: Comment on above: For patients on eltr ombopag therapy, use of [place] TBIL is not recommended. Cholesterol [Mass/Vol] 133 mg/dL <200 [facility] Work Phone: Comment on above: <200 mg/dL Desirable 200-240 mg/dL Borderline >240 mg/dL High Risk Protein [Mass/Vol] 6.7 g/dL 6.4-8.2 [facility] Work Phone: Triglyceride [Mass/Vol] 111 mg/dL <199 [facility] Work Phone: [phone] Comment on above: The drugs N-Acetylcy steine and Metamizole may falsely depress this assay.Serum Triglycerides Reference Interval Normal <150 mg/dL Borderline high 150 - 199 mg/dL High 200 - 499 mg/dL Very High > or = 500 mg/dL Basophils/100 WBC (Bld) 0.8 % 0-1 [facility] Work Phone: Chloride [Moles/Vol] 106 mmol/L 98-107 [facility] Work Phone: Eosinophils/100 WBC (Bld) 1.6 % 0-5 [facility] Work Phone: [phone] Glucose [Mass/Vol] 107 mg/dL 74-106 [facility] Work Phone: [phone] Comment on above: Fasting Glucose resu lt from 100 to 125 mg/dL suggests IMPAIRED HOMEOSTASIS per A.D.A. criteria. Neutrophils (Bld) [#/Vol] 1.8 10*3/uL 2.0-7.7 [facility] Work Phone: Neutrophils/100 WBC (Bld) 46.9 % 47-70 [facility] Work Phone: [phone] Potassium [Moles/Vol] 3.9 mmol/L 3.5-5.1 [facility] Work Phone: Sodium [Moles/Vol] 138 mmol/L 136-145 [facility] Work Phone: [phone] WBC (Bld) [#/Vol] 3.7 10*3/uL 4.4-11.0 [facility] Work Phone: Blood erythrocytes count (nu mber/volume)on 11-20-2021 RBC (Bld) [#/Vol] 4.06 10*6/uL 4.2-5.4 [facility] Work Phone: [phone] Blood hemoglobin measurement (mass/volume)on 11-20-2021 Hemoglobin (Bld) [Mass/Vol] 12.9 g/dL 12.0-15.0 [facility] Work Phone: Blood lymphocytes/100 leukoc yteson 11-20-2021 Lymphocytes/100 WBC (Bld) 37.0 % 19-41 [facility] Work Phone: Blood monocytes/100 leukocyt eson 11-20-2021 Monocytes/100 WBC (Bld) 13.7 % 0-10 [facility] Work Phone: Blood platelet mean volumeon 11-20-2021 Platelet mean volume (Bld) [Entitic vol] 10.8 fL 6.2-12.0 [facility] Work Phone: Determination of erythrocyte mean corpuscular volume (MCV)on 11-20-2021 MCV (RBC) [Entitic vol] 95.8 fL 81-99 [facility] Work Phone: Direct bilirubinon Bilirubin.direct [Mass/Vol] 0.16 mg/dL 0.00-0.30 [facility] Work Phone: Hematocrit Auto (Bld) [Volum e fraction]on 11-20-2021 Hematocrit (Bld) [Volume fraction] 38.9 % 37-47 [facility] Work Phone: [phone] Laboratory - Chemistry and C hemistry - challengeon 11-20-2021 ALP [Catalytic activity/Vol] 51 U/L 45-117 [facility] Work Phone: ALT [Catalytic activity/Vol] 25 U/L 13-56 [facility] Work Phone: Globulin (S) [Mass/Vol] 3.3 g/dL 2.2-4.2 [facility] Work Phone: CO2 [Moles/Vol] 25.0 mmol/L 21.0-32.0 [facility] Work Phone: Urea nitrogen/Creatinine [Mass ratio] 18.5 mg/mg 10-20 [facility] Work Phone: Laboratory - Hematology and Cell countson 11-20-2021 Erythrocyte distribution width (RBC) [Entitic vol] 50.2 fL 35.1-43.9 [facility] Work Phone: Erythrocyte distribution width (RBC) [Ratio] 14.3 % 11.6-14.6 [facility] Work Phone: Immature granulocytes/100 WBC (Bld) 0.000 % 0.0-0.9 [facility] Work Phone: Comment on above: IG% - Immature Granu locytes (promyelocytes, myelocytes and metamyelocytes) > 1% indicates that a LEFT SHIFT is Present. MCH (RBC) [Entitic mass] 31.8 pg 27.0-32.0 [facility] Work Phone: Nucleated RBC/100 WBC (Bld) [Ratio] 0 % 0-5 [facility] Work Phone: MCHC Auto (RBC) [Mass/Vol]on 11-20-2021 MCHC (RBC) [Mass/Vol] 33.2 g/dL 32-36 [facility] Work Phone: No Panel Informationon 11-20 Estimated GFR (MDRD) Amer 93 mL/min >60 [facility] Work Phone: Comment on above: GFR Calc Estimated GFR (MDRD) Non-Af Amer 77 mL/min >60 [facility] Work Phone: Comment on above: Non- GFR Calc Thyroid Stimulating Hormone (TSH) 5.02 uIU/mL 0.358-3.74 [facility] Work Phone: Platelets bldon 11-20-2021 Platelets (Bld) [#/Vol] 186 10*3/uL 150-450 [facility] Work Phone: Serum or plasma albumin criss urement (mass/volume)on 11-20-2021 Albumin [Mass/Vol] 3.4 g/dL 3.2-5.0 [facility] Work Phone: Serum or plasma albumin/glob ulin mass ratioon 11-20-2021 Albumin/Globulin [Mass ratio] 1.1 {ratio} 0.9-2.4 [facility] Work Phone: Serum or plasma calcium criss urement (mass/volume)on 11-20-2021 Calcium [Mass/Vol] 8.7 mg/dL 8.5-10.1 [facility] Work Phone: Serum or plasma cholesterol in HDL measurement (mass/volume)on 11-20-2021 Cholesterol in HDL [Mass/Vol] 72 mg/dL >40 [facility] Work Phone: Comment on above: The drugs N-Acetylcy steine and Metamizole may falsely depress this assay. Reference Range HDL <40 mg/dL Low HDL Cholesterol HDL >or= 60 mg/dL High HDL Cholesterol Serum or plasma cholesterol in VLDL measurement (mass/volume)on 11-20-2021 Cholesterol in VLDL [Mass/Vol] 22 mg/dL 5-40 [facility] Work Phone: Serum or plasma creatinine m easurement (mass/volume)on 11-20-2021 Creatinine [Mass/Vol] 0.76 mg/dL 0.55-1.02 [facility] Work Phone: Comment on above: The validity of the calculated GFR & GFRAA in patients over 70 years has not been determined. Clinical correlation is essential. Serum or plasma low density lipoprotein (LDL) cholesterol measurement (mass/volume)on 11-20-2021 Cholesterol in LDL [Mass/Vol] 39 mg/dL 0-130 [facility] Work Phone: Serum or plasma urea nitroge n measurement (mass/volume)on 11-20-2021 Urea nitrogen [Mass/Vol] 14 mg/dL 7-18 [facility] Work Phone: Thin prep Papanicolaou smear with manual screeningon 11-20-2021 Thin prep Papanicolaou smear with manual screening 19 U/L 15-37 [facility] Work Phone: Thin prep Papanicolaou smear with manual screening 7 5-15 [facility] Work Phone: Absolute lymphocyte counton 08-20-2021 Lymphocytes Auto (Unsp spec) [#/Vol] 1.06 10*3/uL 0.83-4.51 [facility] Work Phone: Basophil percentageon 2021 Basophils/100 WBC (Bld) 0.5 % 0-1 [facility] Work Phone: Bilirubin [Mass/Vol] 0.60 mg/dL 0.20-1.00 [facility] Work Phone: Comment on above: For patients on eltr ombopag therapy, use of [place] TBIL is not recommended. Chloride [Moles/Vol] 107 mmol/L 98-107 [facility] Work Phone: Eosinophils/100 WBC (Bld) 1.2 % 0-5 [facility] Work Phone: Glucose [Mass/Vol] 113 mg/dL 74-106 [facility] Work Phone: [phone] Comment on above: Fasting Glucose resu lt from 100 to 125 mg/dL suggests IMPAIRED HOMEOSTASIS per A.D.A. criteria. Neutrophils (Bld) [#/Vol] 2.6 10*3/uL 2.0-7.7 [facility] Work Phone: Neutrophils/100 WBC (Bld) 62.1 % 47-70 [facility] Work Phone: Potassium [Moles/Vol] 4.7 mmol/L 3.5-5.1 [facility] Work Phone: Protein [Mass/Vol] 6.6 g/dL 6.4-8.2 [facility] Work Phone: Sodium [Moles/Vol] 140 mmol/L 136-145 [facility] Work Phone: WBC (Bld) [#/Vol] 4.2 10*3/uL 4.4-11.0 [facility] Work Phone: Blood erythrocytes count (nu mber/volume)on 08-20-2021 RBC (Bld) [#/Vol] 3.91 10*6/uL 4.2-5.4 [facility] Work Phone: [phone] Blood hemoglobin measurement (mass/volume)on 08-20-2021 Hemoglobin (Bld) [Mass/Vol] 12.5 g/dL 12.0-15.0 [facility] Work Phone: Blood lymphocytes/100 leukoc yteson 08-20-2021 Lymphocytes/100 WBC (Bld) 25.1 % 19-41 [facility] Work Phone: Blood monocytes/100 leukocyt eson 08-20-2021 Monocytes/100 WBC (Bld) 10.9 % 0-10 [facility] Work Phone: Blood platelet mean volumeon 08-20-2021 Platelet mean volume (Bld) [Entitic vol] 10.7 fL 6.2-12.0 [facility] Work Phone: [phone] Determination of erythrocyte mean corpuscular volume (MCV)on 08-20-2021 MCV (RBC) [Entitic vol] 95.7 fL 81-99 [facility] Work Phone: Hematocrit Auto (Bld) [Volum e fraction]on 08-20-2021 Hematocrit (Bld) [Volume fraction] 37.4 % 37-47 [facility] Work Phone: [phone] Laboratory - Chemistry and C hemistry - challengeon 08-20-2021 ALP [Catalytic activity/Vol] 49 U/L 45-117 [facility] Work Phone: ALT [Catalytic activity/Vol] 20 U/L 13-56 [facility] Work Phone: CO2 [Moles/Vol] 26.0 mmol/L 21.0-32.0 [facility] Work Phone: Globulin (S) [Mass/Vol] 3.2 g/dL 2.2-4.2 [facility] Work Phone: Urea nitrogen/Creatinine [Mass ratio] 21.6 mg/mg 10-20 [facility] Work Phone: Laboratory - Hematology and Cell countson 04-20-2022 Erythrocyte distribution width (RBC) [Entitic vol] 47.2 fL 35.1-43.9 [facility] Work Phone: Erythrocyte distribution width (RBC) [Ratio] 13.4 % 11.6-14.6 [facility] Work Phone: Immature granulocytes/100 WBC (Bld) 0.200 % 0.0-0.9 [facility] Work Phone: Comment on above: IG% - Immature Granu locytes (promyelocytes, myelocytes and metamyelocytes) > 1% indicates that a LEFT SHIFT is Present. MCH (RBC) [Entitic mass] 32.0 pg 27.0-32.0 [facility] Work Phone: Nucleated RBC/100 WBC (Bld) [Ratio] 0 % 0-5 [facility] Work Phone: MCHC Auto (RBC) [Mass/Vol]on 08-20-2021 MCHC (RBC) [Mass/Vol] 33.4 g/dL 32-36 [facility] Work Phone: No Panel Informationon 08-20 Estimated Creatinine Clearance Calc 45.40 ml/min [facility] Work Phone: Estimated GFR (MDRD) Amer 84 mL/min >60 [facility] Work Phone: Comment on above: GFR Calc Estimated GFR (MDRD) Non-Af Amer 69 mL/min >60 [facility] Work Phone: Comment on above: Non- GFR Calc Platelets bldon 08-20-2021 Platelets (Bld) [#/Vol] 179 10*3/uL 150-450 [facility] Work Phone: Serum or plasma albumin criss urement (mass/volume)on 08-20-2021 Albumin [Mass/Vol] 3.4 g/dL 3.2-5.0 [facility] Work Phone: Serum or plasma albumin/glob ulin mass ratioon 08-20-2021 Albumin/Globulin [Mass ratio] 1.1 {ratio} 0.9-2.4 [facility] Work Phone: Serum or plasma calcium criss urement (mass/volume)on 08-20-2021 Calcium [Mass/Vol] 8.6 mg/dL 8.5-10.1 [facility] Work Phone: Serum or plasma creatinine m easurement (mass/volume)on 08-20-2021 Creatinine [Mass/Vol] 0.83 mg/dL 0.55-1.02 [facility] Work Phone: Comment on above: The validity of the calculated GFR & GFRAA in patients over 70 years has not been determined. Clinical correlation is essential. Serum or plasma urea nitroge n measurement (mass/volume)on 08-20-2021 Urea nitrogen [Mass/Vol] 18 mg/dL 7-18 [facility] Work Phone: Thin prep Papanicolaou smear with manual screeningon 08-20-2021 Thin prep Papanicolaou smear with manual screening 17 U/L 15-37 [facility] Work Phone: Thin prep Papanicolaou smear with manual screening 7 5-15 [facility] Work Phone: Absolute lymphocyte counton 05-28-2021 Lymphocytes Auto (Unsp spec) [#/Vol] 1.04 10*3/uL 0.83-4.51 [facility] Work Phone: Basophil percentageon 2021 Basophils/100 WBC (Bld) 0.6 % 0-1 [facility] Work Phone: Bilirubin [Mass/Vol] 0.40 mg/dL 0.20-1.00 [facility] Work Phone: Comment on above: For patients on eltr ombopag therapy, use of [place] TBIL is not recommended. Chloride [Moles/Vol] 107 mmol/L 98-107 [facility] Work Phone: Eosinophils/100 WBC (Bld) 1.1 % 0-5 [facility] Work Phone: Glucose [Mass/Vol] 99 mg/dL 74-106 [facility] Work Phone: Neutrophils (Bld) [#/Vol] 2.1 10*3/uL 2.0-7.7 [facility] Work Phone: Neutrophils/100 WBC (Bld) 58.0 % 47-70 [facility] Work Phone: Potassium [Moles/Vol] 4.2 mmol/L 3.5-5.1 [facility] Work Phone: Protein [Mass/Vol] 6.6 g/dL 6.4-8.2 [facility] Work Phone: Sodium [Moles/Vol] 139 mmol/L 136-145 [facility] Work Phone: WBC (Bld) [#/Vol] 3.6 10*3/uL 4.4-11.0 [facility] Work Phone: Blood erythrocytes count (nu mber/volume)on 05-28-2021 RBC (Bld) [#/Vol] 4.14 10*6/uL 4.2-5.4 [facility] Work Phone: Blood hemoglobin measurement (mass/volume)on 05-28-2021 Hemoglobin (Bld) [Mass/Vol] 12.8 g/dL 12.0-15.0 [facility] Work Phone: Blood lymphocytes/100 leukoc yteson 05-28-2021 Lymphocytes/100 WBC (Bld) 28.7 % 19-41 [facility] Work Phone: Blood monocytes/100 leukocyt eson 05-28-2021 Monocytes/100 WBC (Bld) 11.3 % 0-10 [facility] Work Phone: Blood platelet mean volumeon 05-28-2021 Platelet mean volume (Bld) [Entitic vol] 10.4 fL 6.2-12.0 [facility] Work Phone: [phone] Determination of erythrocyte mean corpuscular volume (MCV)on 05-28-2021 MCV (RBC) [Entitic vol] 94.2 fL 81-99 [facility] Work Phone: [phone] Hematocrit Auto (Bld) [Volum e fraction]on 05-28-2021 Hematocrit (Bld) [Volume fraction] 39.0 % 37-47 [facility] Work Phone: [phone] Laboratory - Chemistry and C hemistry - challengeon 05-28-2021 ALP [Catalytic activity/Vol] 53 U/L 45-117 [facility] Work Phone: ALT [Catalytic activity/Vol] 18 U/L 13-56 [facility] Work Phone: CO2 [Moles/Vol] 27.0 mmol/L 21.0-32.0 [facility] Work Phone: [phone] Globulin (S) [Mass/Vol] 3.3 g/dL 2.2-4.2 [facility] Work Phone: [phone] Urea nitrogen/Creatinine [Mass ratio] 19.8 mg/mg 10-20 [facility] Work Phone: [phone] Laboratory - Hematology and Cell countson 05-28-2021 Erythrocyte distribution width (RBC) [Entitic vol] 47.3 fL 35.1-43.9 [facility] Work Phone: [phone] Erythrocyte distribution width (RBC) [Ratio] 13.7 % 11.6-14.6 [facility] Work Phone: [phone] Immature granulocytes/100 WBC (Bld) 0.300 % 0.0-0.9 [facility] Work Phone: [phone] Comment on above: IG% - Immature Granu locytes (promyelocytes, myelocytes and metamyelocytes) > 1% indicates that a LEFT SHIFT is Present. MCH (RBC) [Entitic mass] 30.9 pg 27.0-32.0 [facility] Work Phone: [phone] Nucleated RBC/100 WBC (Bld) [Ratio] 0 % 0-5 [facility] Work Phone: [phone] MCHC Auto (RBC) [Mass/Vol]on 05-28-2021 MCHC (RBC) [Mass/Vol] 32.8 g/dL 32-36 [facility] Work Phone: No Panel Informationon 05-28 Estimated GFR (MDRD) Amer 93 mL/min >60 [facility] Work Phone: Comment on above: GFR Calc Estimated GFR (MDRD) Non-Af Amer 77 mL/min >60 [facility] Work Phone: Comment on above: Non- GFR Calc Platelets bldon 05-28-2021 Platelets (Bld) [#/Vol] 170 10*3/uL 150-450 [facility] Work Phone: Serum or plasma albumin criss urement (mass/volume)on 05-28-2021 Albumin [Mass/Vol] 3.3 g/dL 3.2-5.0 [facility] Work Phone: Serum or plasma albumin/glob ulin mass ratioon 05-28-2021 Albumin/Globulin [Mass ratio] 1.0 {ratio} 0.9-2.4 [facility] Work Phone: Serum or plasma calcium criss urement (mass/volume)on 05-28-2021 Calcium [Mass/Vol] 8.9 mg/dL 8.5-10.1 [facility] Work Phone: Serum or plasma creatinine m easurement (mass/volume)on 05-28-2021 Creatinine [Mass/Vol] 0.76 mg/dL 0.55-1.02 [facility] Work Phone: Comment on above: The validity of the calculated GFR & GFRAA in patients over 70 years has not been determined. Clinical correlation is essential. Serum or plasma urea nitroge n measurement (mass/volume)on 05-28-2021 Urea nitrogen [Mass/Vol] 15 mg/dL 7-18 [facility] Work Phone: Thin prep Papanicolaou smear with manual screeningon 05-28-2021 Thin prep Papanicolaou smear with manual screening 16 U/L 15-37 [facility] Work Phone: Thin prep Papanicolaou smear with manual screening 5 5-15 [facility] Work Phone: [phone] Absolute lymphocyte counton 04-17-2021 Lymphocytes Auto (Unsp spec) [#/Vol] 1.73 10*3/uL 0.83-4.51 [facility] Work Phone: [phone] Basophil percentageon 2020 Bilirubin [Mass/Vol] 0.40 mg/dL 0.20-1.00 [facility] Work Phone: [phone] Comment on above: For patients on eltr ombopag therapy, use of [place] TBIL is not recommended. Chloride [Moles/Vol] 105 mmol/L 98-107 [facility] Work Phone: [phone] Eosinophils/100 WBC (Bld) 1.1 % 0-5 [facility] Work Phone: Glucose [Mass/Vol] 127 mg/dL 74-106 [facility] Work Phone: Comment on above: Fasting Glucose resu lt greater than or equal to 126 mg/dL suggests DIABETES MELLITUS per A.D.A. criteria.Please note revised GLUCOSE reference range effective 2017. Neutrophils (Bld) [#/Vol] 2.4 10*3/uL 2.0-7.7 [facility] Work Phone: Potassium [Moles/Vol] 3.9 mmol/L 3.5-5.1 [facility] Work Phone: [phone] Protein [Mass/Vol] 7.4 g/dL 6.4-8.2 [facility] Work Phone: [phone] Sodium [Moles/Vol] 139 mmol/L 136-145 [facility] Work Phone: [phone] WBC (Bld) [#/Vol] 4.6 10*3/uL 4.4-11.0 [facility] Work Phone: Blood erythrocytes count (nu mber/volume)on 04-17-2021 RBC (Bld) [#/Vol] 4.12 10*6/uL 4.2-5.4 [facility] Work Phone: Blood hemoglobin measurement (mass/volume)on 04-17-2021 Hemoglobin (Bld) [Mass/Vol] 12.9 g/dL 12.0-15.0 [facility] Work Phone: Blood lymphocytes/100 leukoc yteson 04-17-2021 Lymphocytes/100 WBC (Bld) 37.4 % 19-41 [facility] Work Phone: Blood monocytes/100 leukocyt eson 04-17-2021 Monocytes/100 WBC (Bld) 8.6 % 0-10 [facility] Work Phone: [phone] Blood platelet mean volumeon 04-17-2021 Platelet mean volume (Bld) [Entitic vol] 10.5 fL 6.2-12.0 [facility] Work Phone: Determination of erythrocyte mean corpuscular volume (MCV)on 04-17-2021 MCV (RBC) [Entitic vol] 96.1 fL 81-99 [facility] Work Phone: [phone] Hematocrit Auto (Bld) [Volum e fraction]on 04-17-2021 Hematocrit (Bld) [Volume fraction] 39.6 % 37-47 [facility] Work Phone: Laboratory - Chemistry and C hemistry - challengeon 04-17-2021 ALP [Catalytic activity/Vol] 56 U/L 45-117 [facility] Work Phone: [phone] ALT [Catalytic activity/Vol] 22 U/L 13-56 [facility] Work Phone: [phone] CO2 [Moles/Vol] 27.0 mmol/L 21.0-32.0 [facility] Work Phone: [phone] Globulin (S) [Mass/Vol] 3.8 g/dL 2.2-4.2 [facility] Work Phone: [phone] Urea nitrogen/Creatinine [Mass ratio] 19.5 mg/mg 10-20 [facility] Work Phone: Laboratory - Hematology and Cell countson 04-17-2021 Basophils/100 WBC (Unsp spec) 0.6 % 0-1 [facility] Work Phone: Erythrocyte distribution width (RBC) [Entitic vol] 45.5 fL 35.1-43.9 [facility] Work Phone: Erythrocyte distribution width (RBC) [Ratio] 13.0 % 11.6-14.6 [facility] Work Phone: Immature granulocytes/100 WBC (Bld) 0.200 % 0.0-0.9 [facility] Work Phone: Comment on above: IG% - Immature Granu locytes (promyelocytes, myelocytes and metamyelocytes) > 1% indicates that a LEFT SHIFT is Present. MCH (RBC) [Entitic mass] 31.3 pg 27.0-32.0 [facility] Work Phone: Neutrophils/100 WBC (Bld) 52.1 % 47-70 [facility] Work Phone: Nucleated RBC/100 WBC (Bld) [Ratio] 0 % 0-5 [facility] Work Phone: MCHC Auto (RBC) [Mass/Vol]on 04-17-2021 MCHC (RBC) [Mass/Vol] 32.6 g/dL 32-36 [facility] Work Phone: No Panel Informationon 04-17 Estimated Creatinine Clearance Calc 45.96 ml/min [facility] Work Phone: Estimated GFR (MDRD) Amer 85 mL/min >60 [facility] Work Phone: Comment on above: GFR Calc Estimated GFR (MDRD) Non-Af Amer 70 mL/min >60 [facility] Work Phone: Comment on above: Non- GFR Calc Platelets bldon 04-17-2021 Platelets (Bld) [#/Vol] 203 10*3/uL 150-450 [facility] Work Phone: Serum or plasma albumin criss urement (mass/volume)on 04-17-2021 Albumin [Mass/Vol] 3.6 g/dL 3.2-5.0 [facility] Work Phone: [phone] Serum or plasma albumin/glob ulin mass ratioon 04-17-2021 Albumin/Globulin [Mass ratio] 0.9 {ratio} 0.9-2.4 [facility] Work Phone: [phone] Serum or plasma calcium criss urement (mass/volume)on 04-17-2021 Calcium [Mass/Vol] 9.3 mg/dL 8.5-10.1 [facility] Work Phone: [phone] Serum or plasma creatinine m easurement (mass/volume)on 04-17-2021 Creatinine [Mass/Vol] 0.82 mg/dL 0.55-1.02 [facility] Work Phone: Comment on above: The validity of the calculated GFR & GFRAA in patients over 70 years has not been determined. Clinical correlation is essential. Serum or plasma urea nitroge n measurement (mass/volume)on 04-17-2021 Urea nitrogen [Mass/Vol] 16 mg/dL 7-18 [facility] Work Phone: Thin prep Papanicolaou smear with manual screeningon 04-17-2021 Thin prep Papanicolaou smear with manual screening 13 U/L 15-37 [facility] Work Phone: [phone] Thin prep Papanicolaou smear with manual screening 7 5-15 [facility] Work Phone: [phone] Thin prep Papanicolaou smear with manual screening 185 U/L 84-246 [facility] Work Phone: Basophil percentageon 2019 Basophil percentage 3.0 mg/dL 2.5-4.9 [facility] Laboratory - Chemistry and C hemistry - challengeon 10-18-2019 Magnesium [Mass/Vol] 1.9 mg/dL 1.6-2.6 [facility] No Panel Informationon 10-17 1.9 mg/dL 1.6-2.6 [facility] Erythrocyte distribution wid th standard deviationon 10-17-2018 Erythrocyte distribution width (RBC) [Entitic vol] 43.4 fL 35.1-43.9 [facility] Laboratory - Hematology and Cell countson 10-17-2018 Erythrocyte distribution width (RBC) [Ratio] 13.4 % 11.6-14.6 [facility] No Panel Informationon 10-17 13.4 % 11.6-14.6 [facility] Total cell counton 9 Cells counted Mol[employer] (Bld/Tiss) [#] Not Reportable [facility] Basic Panelon 04-22-2017 Creatinine 0.47 mg/dL Low 0.51-0.95 [facility] Comment on above: Performed By: #### P 8 ####[facility] [place] [address] Urea nitrogen 11 mg/dL Normal 7-18 [facility] Comment on above: Performed By: #### P 8 ####[address] [address] Anion gap 8 mmol/L Normal 8-16 [facility] Comment on above: Performed By: #### P 8 ####[facility] [place], [place] [address] Calcium 7.2 mg/dL Low 8.5-10.1 [facility] Comment on above: Performed By: #### P 8 ####[facility] [place], [place] [address] CO2 27 mmol/L Normal 21-32 [facility] Comment on above: Performed By: #### P 8 ####[facility] [place], [place] [address] Glucose mass conc 103 mg/dL High 70-99 [facility] Comment on above: Performed By: #### P 8 ####[facility] [place] [address] Chloride 107 mmol/L Normal 98-107 [facility] Comment on above: Performed By: #### P 8 ####[address] [address] Potassium molar conc 3.8 mmol/L Normal 3.5-5.1 [facility] Comment on above: Performed By: #### P 8 ####[place] [address] Sodium 138 mmol/L Normal 136-145 [facility] Comment on above: Performed By: #### P 8 ####[place] [address] Hemogram/Diffon 04-22-2017 Abs Immature Grans 0.02 thou/cmm Normal 0.00-0.05 [place] Comment on above: Performed By: #### C BCD1 ####[place] [address] Abs. Baso 0.02 thou/cmm Normal 0.01-0.08 [facility] Comment on above: Result Comment: Smea r scanned; tech agrees with automated differential Performed By: #### C BCD1 ####[place] [address] Abs. Milam 0.81 thou/cmm High 0.27-0.70 [facility] Comment on above: Performed By: #### C BCD1 ####[place] [address] Abs. Neut 3.04 thou/cmm Normal 1.56-6.13 [facility] Comment on above: Performed By: #### C BCD1 ####[place] [address] Basophils/100 WBC Auto (Bld) 0.4 % Normal [facility] Comment on above: Performed By: #### C BCD1 ####[place] [address] Eosinophils 0.10 thou/cmm Normal 0.00-0.31 [facility] Comment on above: Performed By: #### C BCD1 ####[place] [address] Eosinophils/100 leukocytes 1.9 % Normal [facility] Comment on above: Performed By: #### C BCD1 ####[place] [address] Immature Grans 0.40 % Normal [facility] Comment on above: Performed By: #### C BCD1 ####[address] [address] Lymphocytes 1.18 thou/cmm Normal 1.18-3.74 [facility] Comment on above: Performed By: #### C BCD1 ####[address] [address] Lymphocytes/100 leukocytes 22.8 % Normal [facility] Comment on above: Performed By: #### C BCD1 ####[address] [address] Monocytes/100 leukocytes 15.7 % Normal [facility] Comment on above: Performed By: #### C BCD1 ####[address] [address] Seg Neutrophil 58.8 % Normal [facility] Comment on above: Performed By: #### C BCD1 ####[place] [address] Erythrocyte distribution width Auto Ratio (RBC) 13.0 % Normal 11.7-14.4 [facility] Comment on above: Performed By: #### C BCD1 ####[address] [address] Erythrocytes (RBC) 3.09 mil/cmm Low 3.93-5.22 [facility] Comment on above: Performed By: #### C BCD1 ####[address] [address] Hematocrit (HCT) 28.2 % Low 34.1-44.9 [facility] Comment on above: Performed By: #### C BCD1 ####[address] [address] Hemoglobin mass conc (Bld) 9.6 g/dL Low 11.2-15.7 [facility] Comment on above: Performed By: #### C BCD1 ####[address] [address] MCH 31.1 pg Normal 25.6-32.2 [facility] Comment on above: Performed By: #### C BCD1 ####[address] [address] MCHC mass conc (RBC) 34.0 % Normal 31.6-34.8 [facility] Comment on above: Performed By: #### C BCD1 ####[address] [address] MCV 91.3 fL Normal 79.4-94.8 [facility] Comment on above: Performed By: #### C BCD1 ####[place] [address] Platelet mean volume (PMV) 11.4 fL Normal 9.4-12.3 [facility] Comment on above: Performed By: #### C BCD1 ####[place] [address] Platelets 140 thou/cmm Low 182-369 [facility] Comment on above: Performed By: #### C BCD1 ####[place] [address] RDW SD 42.6 fl Normal 36.4-46.3 [facility] Comment on above: Performed By: #### C BCD1 ####[place] [address] WBC (Leukocytes) 5.17 thou/cmm Normal 3.98-10.04 [facility] Comment on above: Performed By: #### C BCD1 ####[place] [address] MDRD GFRon 04-22-2017 eGFR (non-black) mL/min/{1.73_m2} Normal >60mL/m in/ 1.73m2 [facility] Comment on above: Result Comment: If t he patient is , multiply the result by 1.210. Performed By: #### G FR ####[place] [address] Basic Panelon 04-21-2017 Creatinine 0.49 mg/dL Low 0.51-0.95 [facility] Comment on above: Performed By: #### P 8 ####[address], [place] [address] Anion gap 10 mmol/L Normal 8-16 [facility] Comment on above: Performed By: #### P 8 ####[place] [address] CO2 24 mmol/L Normal 21-32 [facility] Comment on above: Performed By: #### P 8 ####[place] [address] Glucose mass conc 99 mg/dL Normal 70-99 [facility] Comment on above: Performed By: #### P 8 ####[place] [address] Urea nitrogen 15 mg/dL Normal 7-18 [facility] Comment on above: Performed By: #### P 8 ####[place] [address] Calcium 7.4 mg/dL Low 8.5-10.1 [facility] Comment on above: Performed By: #### P 8 ####[place] [address] Chloride 108 mmol/L High 98-107 [facility] Comment on above: Performed By: #### P 8 ####[place] [address] Potassium molar conc 4.0 mmol/L Normal 3.5-5.1 [facility] Comment on above: Performed By: #### P 8 ####[place] [address] Sodium 138 mmol/L Normal 136-145 [facility] Comment on above: Performed By: #### P 8 ####[place] [address] Hemogram/Diffon 04-21-2017 Abs Immature Grans 0.02 thou/cmm Normal 0.00-0.05 [place] Comment on above: Performed By: #### C BCD1 ####[place] [address] Abs. Baso 0.01 thou/cmm Normal 0.01-0.08 [facility] Comment on above: Performed By: #### C BCD1 ####[facility] [place], [place] [address] Abs. Milam 0.88 thou/cmm High 0.27-0.70 [facility] Comment on above: Performed By: #### C BCD1 ####[facility] [place], [place] [address] Abs. Neut 4.37 thou/cmm Normal 1.56-6.13 [facility] Comment on above: Performed By: #### C BCD1 ####[address] [address] Basophils/100 WBC Auto (Bld) 0.2 % Normal [facility] Comment on above: Performed By: #### C BCD1 ####[address] [address] Eosinophils 0.01 thou/cmm Normal 0.00-0.31 [facility] Comment on above: Performed By: #### C BCD1 ####[address] [address] Eosinophils/100 leukocytes 0.2 % Normal [facility] Comment on above: Performed By: #### C BCD1 ####[address] [address] Erythrocyte distribution width Auto Ratio (RBC) 12.9 % Normal 11.7-14.4 [facility] Comment on above: Performed By: #### C BCD1 ####[address] [address] Erythrocytes (RBC) 3.33 mil/cmm Low 3.93-5.22 [facility] Comment on above: Performed By: #### C BCD1 ####[address] [address] Hematocrit (HCT) 30.5 % Low 34.1-44.9 [facility] Comment on above: Performed By: #### C BCD1 ####[address] [address] Hemoglobin mass conc (Bld) 10.4 g/dL Low 11.2-15.7 [facility] Comment on above: Performed By: #### C BCD1 ####[facility] [place], [place] [address] Immature Grans 0.30 % Normal [facility] Comment on above: Performed By: #### C BCD1 ####[address] [address] Lymphocytes 0.87 thou/cmm Low 1.18-3.74 [facility] Comment on above: Performed By: #### C BCD1 ####[address] [address] Lymphocytes/100 leukocytes 14.1 % Normal [facility] Comment on above: Performed By: #### C BCD1 ####[address] [address] MCH 31.2 pg Normal 25.6-32.2 [facility] Comment on above: Performed By: #### C BCD1 ####[address] [address] MCHC mass conc (RBC) 34.1 % Normal 31.6-34.8 [facility] Comment on above: Performed By: #### C BCD1 ####[address] [address] MCV 91.6 fL Normal 79.4-94.8 [facility] Comment on above: Performed By: #### C BCD1 ####[address] [address] Monocytes/100 leukocytes 14.3 % Normal [facility] Comment on above: Performed By: #### C BCD1 ####[address] [address] Platelet mean volume (PMV) 11.8 fL Normal 9.4-12.3 [facility] Comment on above: Performed By: #### C BCD1 ####[address] [address] Platelets 134 thou/cmm Low 182-369 [facility] Comment on above: Performed By: #### C BCD1 ####[address], [place] [address] RDW SD 42.5 fl Normal 36.4-46.3 [facility] Comment on above: Performed By: #### C BCD1 ####[facility] [place], [place] [address] Seg Neutrophil 70.9 % Normal [facility] Comment on above: Performed By: #### C BCD1 ####[facility] [place], [place] [address] WBC (Leukocytes) 6.17 thou/cmm Normal 3.98-10.04 [facility] Comment on above: Performed By: #### C BCD1 ####[address] [address] MDRD GFRon 04-21-2017 eGFR (non-black) mL/min/{1.73_m2} Normal >60mL/m in/ 1.73m2 [facility] Comment on above: Result Comment: If t he patient is , multiply the result by 1.210. Performed By: #### G FR ####[address] [address] ANKLE 2V AP/LAT LTon 017 ANKLE 2V AP/LAT LT Performed at [facility] APPROVED BY: Kendall Enciso MD EXAM TITLE: 2 VIEWS LEFT ANKLE DATE:04/20/2017 17:28 COMPARISON: Intraoperative assessment CLINICAL INDICATION/HISTORY: Status post left ORIF RESULTS:Lateral fibular fixation plate, syndesmotic screw and 2 medial malleolar screws are present. Overall anatomic alignment appears to be achieved. Expected postoperative soft tissue swelling. IMPRESSION:Unremarkable postoperative appearance Normal [facility] ANKLE 2V AP/LAT LT Performed at [facility] APPROVED BY: Kendall Enciso MD EXAM TITLE: Fluoroscopy for intraoperative procedure DATE:04/20/2017 13:45 COMPARISON: Left ankle radiograph 04/17/2017 CLINICAL INDICATION/HISTORY: ORIF ankle fracture TECHNIQUE: Fluoroscopic guidance was provided for an intraoperative exam. Interpretation of images was made after completion of the procedure. Please note that the images presented may not be client representative of the entire procedure performed. FINDINGS: 3 minutes and 10 seconds of fluoroscopy time was used. 4 films were submitted. Images demonstrate placement of surgical fixation plates and screws. IMPRESSION: Documentation of fluoroscopy for intraoperative procedure. Please see the clinicians notes for further details of the procedure. Normal [facility] Basic Panelon 04-20-2017 Creatinine 0.54 mg/dL Normal 0.51-0.95 [facility] Comment on above: Performed By: #### P 8 ####[facility] [place] [address] Glucose mass conc 103 mg/dL High 70-99 [facility] Comment on above: Performed By: #### P 8 ####[place] [address] Urea nitrogen 13 mg/dL Normal 7-18 [facility] Comment on above: Performed By: #### P 8 ####[place] [address] Anion gap 8 mmol/L Normal 8-16 [facility] Comment on above: Performed By: #### P 8 ####[place] [address] Calcium 7.5 mg/dL Low 8.5-10.1 [facility] Comment on above: Performed By: #### P 8 ####[place] [address] CO2 27 mmol/L Normal 21-32 [facility] Comment on above: Performed By: #### P 8 ####[place] [address] Chloride 108 mmol/L High 98-107 [facility] Comment on above: Performed By: #### P 8 ####[place] [address] Potassium molar conc 3.9 mmol/L Normal 3.5-5.1 [facility] Comment on above: Performed By: #### P 8 ####[place] [address] Sodium 139 mmol/L Normal 136-145 [facility] Comment on above: Performed By: #### P 8 ####[place]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 Systolic blood pressure 117 mm[Hg] Dr. Teagan Hall Work Phone: 4(123)966-845317 [place] [address] 02-17-2023 12:27-0400 Body temperature 97.4 [degF] Dr. Teagan Hall Work Phone: 9(585)658-526411 [address] 02-17-2023 12:27-0400 Diastolic blood pressure 72 mm[Hg] Dr. Teagan Hall Work Phone: 9(810)537-407879 [place] [address] 02-17-2023 12:27-0400 Heart rate 53 /min Dr. Teagan Hall Work Phone: [facility] 02-17-2023 12:27-0400 Respiratory rate 16 /min Dr. Teagan Hall Work Phone: 9(310)921-566517 [place] [address] 02-17-2023 12:27-0400 SaO2% (BldA) [Mass fraction] 97 % Dr. Teagan Hall Work Phone: 7(338)455-156817 [place] [address] 02-17-2023 12:27-0400 Systolic blood pressure 124 mm[Hg] Dr. Teagan Hall Work Phone: 6(336)149-262117 [place] [address] 02-17-2023 11:30-0400 Body height 165.[address] Teagan Hall Work Phone: [facility] 02-17-2023 11:30-0400 Body mass index (BMI) [Ratio] 21.2 kg/m2 Dr. Teagan Hall Work Phone: [facility] 02-17-2023 11:30-0400 Body weight 58.[address] Teagan Hall Work Phone: [facility] 02-11-2023 09:32-0400 Body mass index (BMI) [Ratio] 21.2 kg/m2 Dr. Teagan Hall Work Phone: 9(548)583-216311 [address] 02-11-2023 09:32-0400 Body weight 58.[address] Teagan Hall Work Phone: 8(520)361-138817 [place] [address] 02-11-2023 09:32-0400 Diastolic blood pressure 75 mm[Hg] Dr. Teagan Hall Work Phone: 2(217)712-712817 [place] [address] 02-11-2023 09:32-0400 Heart rate 62 /min Dr. Teagan Hall Work Phone: 1(460)067-598317 [place] [address] 02-11-2023 09:32-0400 Respiratory rate 18 /min Dr. Teagan Hall Work Phone: 1(926)414-595617 [place] [address] 02-11-2023 09:32-0400 SaO2% (BldA) [Mass fraction] 98 % Dr. Teagan Hall Work Phone: [facility] 02-11-2023 09:32-0400 Systolic blood pressure 128 mm[Hg] Dr. Teagan Hall Work Phone: [facility] 02-04-2023 11:21-0400 Body mass index (BMI) [Ratio] 20.6 kg/m2 Dr. Teagan Hall Work Phone: [facility] 02-04-2023 11:21-0400 Body weight 56.[address] Teagan Hall Work Phone: [facility] 02-04-2023 11:21-0400 Diastolic blood pressure 65 mm[Hg] Dr. Teagan Hall Work Phone: [facility] 02-04-2023 11:21-0400 Heart rate 54 /min Dr. Teagan Hall Work Phone: [facility] 02-04-2023 11:21-0400 Respiratory rate 16 /min Dr. Teagan Hall Work Phone: [facility] 02-04-2023 11:21-0400 Systolic blood pressure 131 mm[Hg] Dr. Teagan Hall Work Phone: 2(266)670-532611 [address] 01-27-2023 14:00-0400 Diastolic blood pressure 64 mm[Hg] Dr. Teagan Hall Work Phone: 4(603)394-571717 [place] [address] 01-27-2023 14:00-0400 Systolic blood pressure 92 mm[Hg] Dr. Teagan Hall Work Phone: [facility] 01-27-2023 11:01-0400 Body temperature 96.9 [degF] Dr. Teagan Hall Work Phone: 7(120)689-590517 [place] [address] 01-27-2023 11:01-0400 Heart rate 87 /min Dr. Teagan Hall Work Phone: 6(097)361-178617 [place] [address] 01-27-2023 11:01-0400 Respiratory rate 20 /min Dr. Teagan Hall Work Phone: [facility] 01-27-2023 11:01-0400 SaO2% (BldA) [Mass fraction] 100 % Dr. Teagan Hall Work Phone: 4(521)672-045917 [place] [address] 01-25-2023 14:05-0400 Body temperature 97.5 [degF] Dr. Teagan Hall Work Phone: [facility] 01-25-2023 14:05-0400 Diastolic blood pressure 77 mm[Hg] Dr. Teagan Hall Work Phone: 0(604)032-043617 [place] [address] 01-25-2023 14:05-0400 Heart rate 91 /min Dr. Teagan Hall Work Phone: [facility] 01-25-2023 14:05-0400 Respiratory rate 18 /min Dr. Teagan Hall Work Phone: [facility] 01-25-2023 14:05-0400 Systolic blood pressure 123 mm[Hg] Dr. Teagan Hall Work Phone: [facility] 01-20-2023 12:23-0400 Body temperature 97.5 [degF] Dr. Teagan Hall Work Phone: [facility] 01-20-2023 12:23-0400 Diastolic blood pressure 68 mm[Hg] Dr. Teagan Hall Work Phone: [facility] 01-20-2023 12:23-0400 Heart rate 103 /min Dr. Teagan Hall Work Phone: [facility] 01-20-2023 12:23-0400 Respiratory rate 16 /min Dr. Teagan Hall Work Phone: [facility] 01-20-2023 12:23-0400 Systolic blood pressure 130 mm[Hg] Dr. Teagan Hall Work Phone: [facility] 01-20-2023 11:08-0400 Body height 165.[address] Teagan Hall Work Phone: [facility] 01-20-2023 11:08-0400 Body mass index (BMI) [Ratio] 21.1 kg/m2 Dr. Teagan Hall Work Phone: [facility] 01-20-2023 11:08-0400 Body temperature 97.5 [degF] Dr. Teagan Hall Work Phone: [facility] 01-20-2023 11:08-0400 Body weight 57.[address] Teagan Hall Work Phone: [facility] 01-20-2023 11:08-0400 Diastolic blood pressure 72 mm[Hg] Dr. Teagan Hall Work Phone: [facility] 01-20-2023 11:08-0400 Heart rate 108 /min Dr. Teagan Hall Work Phone: [facility] 01-20-2023 11:08-0400 Respiratory rate 16 /min Dr. Teagan Hall Work Phone: [facility] 01-20-2023 11:08-0400 SaO2% (BldA) [Mass fraction] 98 % Dr. Teagan Hall Work Phone: [facility] 01-20-2023 11:08-0400 Systolic blood pressure 137 mm[Hg] Dr. Teagan Hall Work Phone: 2(881)696-810911 [address] 01-18-2023 00:33-0400 Diastolic blood pressure 90 mm[Hg] Dr. Teagan Hall Work Phone: 3(834)782-650617 [place] [address] 01-18-2023 00:33-0400 Heart rate 98 /min Dr. Teagan Hall Work Phone: [facility] 01-18-2023 00:33-0400 Systolic blood pressure 117 mm[Hg] Dr. Teagan Hall Work Phone: 0(181)244-539111 [address] 01-18-2023 00:06-0400 Respiratory rate 20 /min Dr. Teagan Hall Work Phone: [facility] 01-18-2023 00:06-0400 SaO2% (BldA) [Mass fraction] 99 % Dr. Teagan Hall Work Phone: [facility] 01-17-2023 22:25-0400 Body mass index (BMI) [Ratio] 21.9 kg/m2 Dr. Teagan Hall Work Phone: [facility] 01-17-2023 22:25-0400 Body temperature 97.9 [degF] Dr. Teagan Hall Work Phone: [facility] 01-17-2023 22:25-0400 Body weight 59.[address] Teagan Hall Work Phone: [facility] 01-07-2023 11:32-0400 Body mass index (BMI) [Ratio] 20.6 kg/m2 Dr. Teagan Hall Work Phone: [facility] 01-07-2023 11:32-0400 Body weight 56.[address] Teagan Hall Work Phone: 0(994)437-452879 [place] [address] 01-07-2023 11:32-0400 Diastolic blood pressure 73 mm[Hg] Dr. Teagan Hall Work Phone: 0(239)909-839479 [place] [address] 01-07-2023 11:32-0400 Heart rate 102 /min Dr. Teagan Hall Work Phone: 9(053)284-236779 [place] [address] 01-07-2023 11:32-0400 Respiratory rate 22 /min Dr. Teagan Hall Work Phone: 2(273)259-395379 [place] [address] 01-07-2023 11:32-0400 SaO2% (BldA) [Mass fraction] 97 % Dr. Teagan Hall Work Phone: 3(885)652-430079 [place] [address] 01-07-2023 11:32-0400 Systolic blood pressure 120 mm[Hg] Dr. Teagan Hall Work Phone: 0(884)028-755779 [place] [address] 01-06-2023 16:52-0400 Diastolic blood pressure 70 mm[Hg] Dr. Teagan Hall Work Phone: 0(874)103-199779 [place] [address] 01-06-2023 16:52-0400 Heart rate 100 /min Dr. Teagan Hall Work Phone: 4(543)407-053717 [place] [address] 01-06-2023 16:52-0400 Respiratory rate 16 /min Dr. Teagan Hall Work Phone: 6(700)142-201279 [place] [address] 01-06-2023 16:52-0400 SaO2% (BldA) [Mass fraction] 96 % Dr. Teagan Hall Work Phone: 3(198)981-757517 [place] [address] 01-06-2023 16:52-0400 Systolic blood pressure 119 mm[Hg] Dr. Teagan Hall Work Phone: [facility] 01-06-2023 13:12-0400 Body height 165.[address] Teagan Hlal Work Phone: [facility] 01-06-2023 13:12-0400 Body mass index (BMI) [Ratio] 22.6 kg/m2 Dr. Teagan Hall Work Phone: [facility] 01-06-2023 13:12-0400 Body temperature 97.1 [degF] Dr. Teagan Hall Work Phone: [facility] 01-06-2023 13:12-0400 Body weight 61.[address] Teagan Hall Work Phone: [facility] 01-05-2023 14:06-0400 Body height 165.[address] Teagan Hall Work Phone: [facility] 01-05-2023 14:06-0400 Body mass index (BMI) [Ratio] 21.3 kg/m2 Dr. Teagan Hall Work Phone: [facility] 01-05-2023 14:06-0400 Body temperature 98.9 [degF] Dr. Teagan Hall Work Phone: [facility] 01-05-2023 14:06-0400 Body weight 58.[address] Teagan Hall Work Phone: [facility] 01-05-2023 14:06-0400 Diastolic blood pressure 81 mm[Hg] Dr. Teagan Hall Work Phone: [facility] 01-05-2023 14:06-0400 Heart rate 82 /min Dr. Teagan Hall Work Phone: [facility] 01-05-2023 14:06-0400 Respiratory rate 18 /min Dr. Teagan Hall Work Phone: [facility] 01-05-2023 14:06-0400 SaO2% (BldA) [Mass fraction] 98 % Dr. Teagan Hall Work Phone: [facility] 01-05-2023 14:06-0400 Systolic blood pressure 137 mm[Hg] Dr. Teagan Hall Work Phone: [facility] 01-04-2023 09:32-0400 Diastolic blood pressure 75 mm[Hg] Dr. Teagan Hall Work Phone: [facility] 01-04-2023 09:32-0400 Heart rate 91 /min Dr. Teagan Hall Work Phone: [facility] 01-04-2023 09:32-0400 Systolic blood pressure 164 mm[Hg] Dr. Teagan Hall Work Phone: [facility] 01-04-2023 08:30-0400 Body temperature 97.6 [degF] Dr. Teagan Hall Work Phone: [facility] 01-04-2023 08:30-0400 Respiratory rate 18 /min Dr. Teagan Hall Work Phone: [facility] 01-04-2023 08:30-0400 SaO2% (BldA) [Mass fraction] 100 % Dr. Teagan Hall Work Phone: [facility] 01-03-2023 15:56-0400 Body mass index (BMI) [Ratio] 20.6 kg/m2 Dr. Teagan Hall Work Phone: [facility] 01-03-2023 15:56-0400 Body weight 56.[address] Teagan Hall Work Phone: [facility] 01-03-2023 15:00-0400 Diastolic blood pressure 68 mm[Hg] Dr. Teagan Hall Work Phone: [facility] 01-03-2023 15:00-0400 Heart rate 82 /min Dr. Teagan Hall Work Phone: [facility] 01-03-2023 15:00-0400 Respiratory rate 16 /min Dr. Teagan Hall Work Phone: [facility] 01-03-2023 15:00-0400 SaO2% (BldA) [Mass fraction] 98 % Dr. Teagan Hall Work Phone: [facility] 01-03-2023 15:00-0400 Systolic blood pressure 124 mm[Hg] Dr. Teagan Hall Work Phone: [facility] 01-03-2023 14:37-0400 Body temperature 97.8 [degF] Dr. Teagan Hall Work Phone: [facility] 01-03-2023 09:02-0400 Body height 165.[address] Teagan Hall Work Phone: 9(740)475-881011 [address] 01-03-2023 09:02-0400 Body mass index (BMI) [Ratio] 21.6 kg/m2 Dr. Teagan Hall Work Phone: 0(513)615-125317 [place] [address] 01-03-2023 09:02-0400 Body weight [address] Teagan Hall Work Phone: [facility] 01-03-2023 09:02-0400 Inhaled oxygen flow rate 2 L/min Dr. Teagan Hall Work Phone: [facility] 12-09-2022 12:43-0400 Body temperature 96.8 [degF] Dr. Teagan Hall Work Phone: [facility] 12-09-2022 12:43-0400 Diastolic blood pressure 56 mm[Hg] Dr. Teagan Hall Work Phone: [facility] 12-09-2022 12:43-0400 Heart rate 72 /min Dr. Teagan Hall Work Phone: [facility] 12-09-2022 12:43-0400 Respiratory rate 16 /min Dr. Teagan Hall Work Phone: [facility] 12-09-2022 12:43-0400 SaO2% (BldA) [Mass fraction] 100 % Dr. Teagan Hall Work Phone: 6(638)898-832811 [address] 12-09-2022 12:43-0400 Systolic blood pressure 127 mm[Hg] Dr. Teagan Hall Work Phone: 4(501)386-524879 [place] [address] 12-09-2022 11:02-0400 Body height 165.[address] Teagan Hall Work Phone: 7(477)315-702779 [place] [address] 12-09-2022 11:02-0400 Body mass index (BMI) [Ratio] 20 kg/m2 Dr. Teagan Hall Work Phone: 1(086)083-135579 [place] [address] 12-09-2022 11:02-0400 Body weight 54.[address] Teagan Hall Work Phone: 7(704)768-603279 [place] [address] 11-12-2022 07:13-0400 Body height 165.[address] Teagan Hall Work Phone: 2(762)638-887779 [place] [address] 11-12-2022 07:13-0400 Body mass index (BMI) [Ratio] 20.2 kg/m2 Dr. Teagan Hall Work Phone: 0(823)521-288179 [place] [address] 11-12-2022 07:13-0400 Body temperature 98.1 [degF] Dr. Teagan Hall Work Phone: 5(530)312-725079 [place] [address] 11-12-2022 07:13-0400 Body weight 55.[address] Teagan Hall Work Phone: 9(851)581-918579 [place] [address] 11-12-2022 07:13-0400 Diastolic blood pressure 107 mm[Hg] Dr. Teagan Hall Work Phone: 8(920)350-561579 [place] [address] 11-12-2022 07:13-0400 Heart rate 94 /min Dr. Teagan Hall Work Phone: 5(944)513-515079 [place] [address] 11-12-2022 07:13-0400 Respiratory rate 14 /min Dr. Teagan Hall Work Phone: 6(232)541-207779 [place] [address] 11-12-2022 07:13-0400 SaO2% (BldA) [Mass fraction] 100 % Dr. Teagan Hall Work Phone: 4(927)096-157379 [place] [address] 11-12-2022 07:13-0400 Systolic blood pressure 130 mm[Hg] Dr. Teagan Hall Work Phone: [facility] 11-11-2022 12:24-0400 Diastolic blood pressure 45 mm[Hg] Dr. Teagan Hall Work Phone: [facility] 11-11-2022 12:24-0400 Heart rate 66 /min Dr. Teagan Hall Work Phone: [facility] 11-11-2022 12:24-0400 Systolic blood pressure 122 mm[Hg] Dr. Teagan Hall Work Phone: [facility] 11-11-2022 11:00-0400 Body height 165.[address] Teagan Hall Work Phone: [facility] 11-11-2022 11:00-0400 Body mass index (BMI) [Ratio] 20 kg/m2 Dr. Teagan Hall Work Phone: [facility] 11-11-2022 11:00-0400 Body temperature 97.6 [degF] Dr. Teagan Hall Work Phone: [facility] 11-11-2022 11:00-0400 Body weight 54.[address] Teagan Hall Work Phone: [facility] 11-11-2022 11:00-0400 Respiratory rate 16 /min Dr. Teagan Hall Work Phone: [facility] 11-11-2022 11:00-0400 SaO2% (BldA) [Mass fraction] 98 % Dr. Teagan Hall Work Phone: [facility] 10-14-2022 14:21-0400 Body temperature 97.2 [degF] Dr. Teagan Hall Work Phone: [facility] 10-14-2022 14:21-0400 Diastolic blood pressure 54 mm[Hg] Dr. Teagan Hall Work Phone: [facility] 10-14-2022 14:21-0400 Heart rate 71 /min Dr. Teagan Hall Work Phone: [facility] 10-14-2022 14:21-0400 Respiratory rate 16 /min Dr. Teagan Hall Work Phone: [facility] 10-14-2022 14:21-0400 SaO2% (BldA) [Mass fraction] 100 % Dr. Teagan Hall Work Phone: [facility] 10-14-2022 14:21-0400 Systolic blood pressure 115 mm[Hg] Dr. Teagan Hall Work Phone: [facility] 10-14-2022 13:05-0400 Body height 165.[address] Teagan Hall Work Phone: [facility] 10-01-2022 13:37-0400 Body mass index (BMI) [Ratio] 20.2 kg/m2 Dr. Teagan Hall Work Phone: [facility] 10-01-2022 13:37-0400 Body temperature 98.2 [degF] Dr. Teagan Hall Work Phone: [facility] 10-01-2022 13:37-0400 Body weight 55.[address] Teagan Hall Work Phone: [facility] 10-01-2022 13:37-0400 Diastolic blood pressure 73 mm[Hg] Dr. Teagan Hall Work Phone: [facility] 10-01-2022 13:37-0400 Heart rate 77 /min Dr. Teagan Hall Work Phone: [facility] 10-01-2022 13:37-0400 Respiratory rate 16 /min Dr. Teagan Hall Work Phone: [facility] 10-01-2022 13:37-0400 SaO2% (BldA) [Mass fraction] 99 % Dr. Teagan Hall Work Phone: [facility] 10-01-2022 13:37-0400 Systolic blood pressure 133 mm[Hg] Dr. Teagan Hall Work Phone: [facility] 09-16-2022 14:43-0400 Body temperature 97.8 [degF] Dr. Teagan Hall Work Phone: [facility] 09-16-2022 14:43-0400 Diastolic blood pressure 51 mm[Hg] Dr. Teagan Hall Work Phone: [facility] 09-16-2022 14:43-0400 Heart rate 76 /min Dr. Teagan Hall Work Phone: [facility] 09-16-2022 14:43-0400 Respiratory rate 16 /min Dr. Teagan Hall Work Phone: [facility] 09-16-2022 14:43-0400 SaO2% (BldA) [Mass fraction] 100 % Dr. Teagan Hall Work Phone: [facility] 09-16-2022 14:43-0400 Systolic blood pressure 113 mm[Hg] Dr. Teagan Hall Work Phone: [facility] 09-16-2022 13:19-0400 Body mass index (BMI) [Ratio] 19.6 kg/m2 Dr. Teagan Hall Work Phone: [facility] 09-16-2022 13:19-0400 Body weight 53.[address] Teagan Hall Work Phone: [facility] 09-10-2022 10:35-0400 Body mass index (BMI) [Ratio] 19.7 kg/m2 Dr. Teagan Hall Work Phone: [facility] 09-10-2022 10:35-0400 Body temperature 98.5 [degF] Dr. Teagan Hall Work Phone: [facility] 09-10-2022 10:35-0400 Body weight 53.[address] Teagan Hall Work Phone: [facility] 09-10-2022 10:35-0400 Diastolic blood pressure 72 mm[Hg] Dr. Teagan Hall Work Phone: [facility] 09-10-2022 10:35-0400 Heart rate 77 /min Dr. Teagan Hall Work Phone: [facility] 09-10-2022 10:35-0400 Respiratory rate 16 /min Dr. Teagan Hall Work Phone: [facility] 09-10-2022 10:35-0400 SaO2% (BldA) [Mass fraction] 100 % Dr. Teagan Hall Work Phone: [facility] 09-10-2022 10:35-0400 Systolic blood pressure 125 mm[Hg] Dr. Teagan Hall Work Phone: [facility] 08-25-2022 15:20-0400 Diastolic blood pressure 55 mm[Hg] Dr. Teagan Hall Work Phone: [facility] 08-25-2022 15:20-0400 Heart rate 82 /min Dr. Teagan Hall Work Phone: [facility] 08-25-2022 15:20-0400 Respiratory rate 16 /min Dr. Teagan Hall Work Phone: [facility] 08-25-2022 15:20-0400 Systolic blood pressure 135 mm[Hg] Dr. Teagan Hall Work Phone: [facility] 08-24-2022 10:56-0400 Body height 165.[address] Teagan Hall Work Phone: [facility] 08-24-2022 10:56-0400 Body mass index (BMI) [Ratio] 20.8 kg/m2 Dr. Teagan Hall Work Phone: [facility] 08-24-2022 10:56-0400 Body temperature 98.2 [degF] Dr. Teagan Hall Work Phone: [facility] 08-24-2022 10:56-0400 Body weight 56.[address] Teagan Hall Work Phone: [facility] 08-24-2022 10:56-0400 Diastolic blood pressure 79 mm[Hg] Dr. Teagan Hall Work Phone: [facility] 08-24-2022 10:56-0400 Heart rate 69 /min Dr. Teagan Hall Work Phone: [facility] 08-24-2022 10:56-0400 Respiratory rate 16 /min Dr. Teagan Hall Work Phone: [facility] 08-24-2022 10:56-0400 SaO2% (BldA) [Mass fraction] 99 % Dr. Teagan Hall Work Phone: [facility] 08-24-2022 10:56-0400 Systolic blood pressure 142 mm[Hg] Dr. Teagan Hall Work Phone: [facility] 08-19-2022 20:00-0400 Diastolic blood pressure 69 mm[Hg] Dr. Teagan Hall Work Phone: [facility] 08-19-2022 20:00-0400 Heart rate 79 /min Dr. Teagan Hall Work Phone: [facility] 08-19-2022 20:00-0400 Respiratory rate 26 /min Dr. Teagan Hall Work Phone: [facility] 08-19-2022 20:00-0400 SaO2% (BldA) [Mass fraction] 97 % Dr. Teagan Hall Work Phone: [facility] 08-19-2022 20:00-0400 Systolic blood pressure 142 mm[Hg] Dr. Teagan Hall Work Phone: [facility] 08-19-2022 19:13-0400 Body temperature 98.2 [degF] Dr. Teagan Hall Work Phone: [facility] 08-19-2022 15:59-0400 Body height 165.[address] Teagan Hall Work Phone: [facility] 08-19-2022 15:59-0400 Body mass index (BMI) [Ratio] 22.3 kg/m2 Dr. Teagan Hall Work Phone: [facility] 08-19-2022 15:59-0400 Body weight 60.[address] Teagan Hall Work Phone: [facility] 08-19-2022 14:29-0400 Diastolic blood pressure 36 mm[Hg] Dr. Teagan Hall Work Phone: [facility] 08-19-2022 14:29-0400 Heart rate 65 /min Dr. Teagan Hall Work Phone: [facility] 08-19-2022 14:29-0400 Respiratory rate 16 /min Dr. Teagan Hall Work Phone: [facility] 08-19-2022 14:29-0400 SaO2% (BldA) [Mass fraction] 100 % Dr. Teagan Hall Work Phone: [facility] 08-19-2022 14:29-0400 Systolic blood pressure 116 mm[Hg] Dr. Teagan Hall Work Phone: [facility] 08-19-2022 13:11-0400 Body mass index (BMI) [Ratio] 21.2 kg/m2 Dr. Teagan Hall Work Phone: [facility] 08-19-2022 13:11-0400 Body temperature 97.5 [degF] Dr. Teagan Hall Work Phone: [facility] 08-19-2022 13:11-0400 Body weight 58.[address] Teagan Hall Work Phone: [facility] 08-13-2022 10:36-0400 Body height 166.4 cm Marcus VARGASM Work Phone: [facility] 08-13-2022 10:36-0400 Body weight 58.51 kg Marcus Mello DPM Work Phone: [facility] 08-13-2022 10:36-0400 Respiratory rate 18 /min Marcus Mello DPM Work Phone: [facility] 07-22-2022 13:59-0400 Diastolic blood pressure 60 mm[Hg] Dr. Teagan Hall Work Phone: [facility] 07-22-2022 13:59-0400 Heart rate 75 /min Dr. Teagan Hall Work Phone: [facility] 07-22-2022 13:59-0400 Systolic blood pressure 124 mm[Hg] Dr. Teagan Hall Work Phone: [facility] 07-22-2022 12:26-0400 Body height 165.[address] Teagan Hall Work Phone: [facility] 07-22-2022 12:26-0400 Body mass index (BMI) [Ratio] 20.9 kg/m2 Dr. Teagan Hall Work Phone: [facility] 07-22-2022 12:26-0400 Body temperature 98 [degF] Dr. Teagan Hall Work Phone: [facility] 07-22-2022 12:26-0400 Body weight 57.[address] Teagan Hall Work Phone: [facility] 07-22-2022 12:26-0400 Respiratory rate 16 /min Dr. Teagan Hall Work Phone: [facility] 07-22-2022 12:26-0400 SaO2% (BldA) [Mass fraction] 98 % Dr. Teagan Hall Work Phone: [facility] 07-09-2022 14:06-0500 Body height 166.4 cm Marcus Mello DPM Work Phone: [facility] 07-09-2022 14:06-0500 Body weight 58.51 kg Marcus Mello DPM Work Phone: [facility] 07-09-2022 14:06-0500 Respiratory rate 18 /min Marcus Mello DPM Work Phone: [facility] 07-01-2022 10:04-0500 Body height 166.[address] Teagan Hall Work Phone: [facility] 07-01-2022 10:04-0500 Body mass index (BMI) [Ratio] 20.2 kg/m2 Dr. Teagan Hall Work Phone: [facility] 07-01-2022 10:04-0500 Body weight 55.[address] Teagan Hall Work Phone: [facility] 07-01-2022 10:04-0500 Diastolic blood pressure 60 mm[Hg] Dr. Teagan Hall Work Phone: [facility] 07-01-2022 10:04-0500 Heart rate 88 /min Dr. Teagan Hall Work Phone: [facility] 07-01-2022 10:04-0500 Respiratory rate 16 /min Dr. Teagan Hall Work Phone: [facility] 07-01-2022 10:04-0500 Systolic blood pressure 142 mm[Hg] Dr. Teagan Hall Work Phone: [facility] 06-24-2022 11:46-0500 Diastolic blood pressure 60 mm[Hg] Dr. Teagan Hall Work Phone: [facility] 06-24-2022 11:46-0500 Heart rate 75 /min Dr. Teagan Hall Work Phone: [facility] 06-24-2022 11:46-0500 Systolic blood pressure 128 mm[Hg] Dr. Teagan Hall Work Phone: [facility] 06-24-2022 10:38-0500 Body mass index (BMI) [Ratio] 20.3 kg/m2 Dr. Teagan Hall Work Phone: [facility] 06-24-2022 10:38-0500 Body temperature 97.6 [degF] Dr. Teagan Hall Work Phone: [facility] 06-24-2022 10:38-0500 Body weight 56.[address] Teagan Hall Work Phone: [facility] 06-24-2022 10:38-0500 Respiratory rate 16 /min Dr. Teagan Hall Work Phone: [facility] 06-24-2022 10:38-0500 SaO2% (BldA) [Mass fraction] 95 % Dr. Taegan Hall Work Phone: [facility] 06-05-2022 14:02-0500 Body height 165.1 cm Marcus Funmilayo DPM Work Phone: [facility] 06-05-2022 14:02-0500 Body weight 58.51 kg Marcus Funmilayo DPM Work Phone: [facility] 06-05-2022 14:02-0500 Respiratory rate 18 /min Marcus Funmilayo DPM Work Phone: [facility] 05-29-2022 13:26-0500 Body height 166.4 cm Marcus Funmilayo DPM Work Phone: [facility] 05-29-2022 13:26-0500 Body weight 58.51 kg Marcus Funmilayo DPM Work Phone: [facility] 05-29-2022 13:26-0500 Respiratory rate 20 /min Marcus Funmilayo DPM Work Phone: [facility] 05-05-2022 11:14-0500 Body height 165.1 cm [address] 1 [facility] 05-05-2022 11:14-0500 Body temperature 98.6 [degF] Pst 1 [facility] 05-05-2022 11:14-0500 Body weight 58.51 kg [facility] [facility] 11:14-0500 Diastolic blood pressure 67 mm[Hg] Pst 1 [facility] 05-05-2022 11:14-0500 Heart rate 72 /min Pst 1 [facility] 05-05-2022 11:14-0500 Respiratory rate 16 /min Pst 1 [facility] 05-05-2022 11:14-0500 SaO2% (BldA) [Mass fraction] 99 % Pst 1 [facility] 05-05-2022 11:14-0500 Systolic blood pressure 121 mm[Hg] Pst 1 [facility] 04-16-2022 14:51-0500 Body height 166.[address] Teagan Hall Work Phone: [facility] 04-16-2022 14:46-0500 Body mass index (BMI) [Ratio] 20.9 kg/m2 Dr. Teagan Hall Work Phone: [facility] 04-16-2022 14:46-0500 Body temperature 98.2 [degF] Dr. Teagan Hall Work Phone: [facility] 04-16-2022 14:46-0500 Body weight 57.[address] Teagan Hall Work Phone: [facility] 04-16-2022 14:46-0500 Diastolic blood pressure 68 mm[Hg] Dr. Teagna Hall Work Phone: [facility] 04-16-2022 14:46-0500 Heart rate 73 /min Dr. Teagan Hall Work Phone: [facility] 04-16-2022 14:46-0500 Respiratory rate 16 /min Dr. Teagan Hall Work Phone: [facility] 04-16-2022 14:46-0500 SaO2% (BldA) [Mass fraction] 100 % Dr. Teagan Hall Work Phone: [facility] 04-16-2022 14:46-0500 Systolic blood pressure 123 mm[Hg] Dr. Teagan Hall Work Phone: [facility] 04-09-2022 11:38-0500 Body height 166.4 cm Marcus Mello DPM Work Phone: [facility] 04-09-2022 11:38-0500 Body temperature 98.2 [degF] Marcus Mello DPM Work Phone: [facility] 04-09-2022 11:38-0500 Body weight 56.7 kg Marcus Mello DPM Work Phone: [facility] 04-03-2022 10:57-0500 Body mass index (BMI) [Ratio] 20.5 kg/m2 Dr. Teagan Hall Work Phone: [facility] 04-03-2022 10:57-0500 Body temperature 97.6 [degF] Dr. Teagan Hall Work Phone: [facility] 04-03-2022 10:57-0500 Body weight 56.[address] Teagan Hall Work Phone: [facility] 04-03-2022 10:57-0500 Diastolic blood pressure 65 mm[Hg] Dr. Teagan Hall Work Phone: [facility] 04-03-2022 10:57-0500 Heart rate 72 /min Dr. Teagan Hall Work Phone: [facility] 04-03-2022 10:57-0500 Respiratory rate 16 /min Dr. Teagan Hall Work Phone: [facility] 04-03-2022 10:57-0500 SaO2% (BldA) [Mass fraction] 99 % Dr. Teagan Hall Work Phone: [facility] 04-03-2022 10:57-0500 Systolic blood pressure 115 mm[Hg] Dr. Teagan Hall Work Phone: [facility] 03-18-2022 09:45-0500 Body height 167.6 cm Marcus Mello DPM Work Phone: [facility] 03-18-2022 09:45-0500 Body weight 67.13 kg Marcus Mello DPM Work Phone: [facility] 03-18-2022 09:45-0500 Respiratory rate 17 /min Marcus Mello DPM Work Phone: [facility] 03-06-2022 11:11-0400 Body temperature 97.5 [degF] Dr. Teagan Hall Work Phone: [facility] 03-06-2022 11:11-0400 Diastolic blood pressure 55 mm[Hg] Dr. Teagan Hall Work Phone: [facility] 03-06-2022 11:11-0400 Heart rate 80 /min Dr. Teagan Hall Work Phone: [facility] 03-06-2022 11:11-0400 SaO2% (BldA) [Mass fraction] 98 % Dr. Teagan Hall Work Phone: [phone] [place] [address] 03-06-2022 11:11-0400 Systolic blood pressure 129 mm[Hg] Dr. Teagan Hall Work Phone: [facility] 02-06-2022 12:15-0400 Body temperature 97.6 [degF] Dr. Teagan Hall Work Phone: [phone] [place] [address] 02-06-2022 12:15-0400 Diastolic blood pressure 57 mm[Hg] Dr. Teagan Hall Work Phone: [facility] 02-06-2022 12:15-0400 Heart rate 72 /min Dr. Teagan Hall Work Phone: [facility] 02-06-2022 12:15-0400 Respiratory rate 16 /min Dr. Teagan Hall Work Phone: [facility] 02-06-2022 12:15-0400 SaO2% (BldA) [Mass fraction] 100 % Dr. Teagan Hall Work Phone: [facility] 02-06-2022 12:15-0400 Systolic blood pressure 138 mm[Hg] Dr. Teagan Hall Work Phone: [facility] 02-06-2022 10:52-0400 Body height 166.[address] Teagan Hall Work Phone: [facility] Work Phone: 02-06-2022 10:52-0400 Body mass index (BMI) [Ratio] 21.3 kg/m2 Dr. Teagan Hall Work Phone: [facility] 02-06-2022 10:52-0400 Body weight 58.[address] Teagan Hall Work Phone: [facility] 01-09-2022 11:16-0400 Body height 166.[address] Teagan Hall Work Phone: [facility] Work Phone: 01-09-2022 11:16-0400 Body mass index (BMI) [Ratio] 21.3 kg/m2 Dr. Teagan Hall Work Phone: [facility] Work Phone: 01-09-2022 11:16-0400 Body temperature 96.4 [degF] Dr. Teagan Hall Work Phone: [facility] Work Phone: 01-09-2022 11:16-0400 Body weight 58.[address] Teagan Hall Work Phone: [facility] Work Phone: 01-09-2022 11:16-0400 Diastolic blood pressure 59 mm[Hg] Dr. Teagan Hall Work Phone: [facility] Work Phone: 01-09-2022 11:16-0400 Heart rate 64 /min Dr. Teagan Hall Work Phone: [facility] Work Phone: 01-09-2022 11:16-0400 Respiratory rate 16 /min Dr. Teagan Hall Work Phone: [facility] Work Phone: 01-09-2022 11:16-0400 SaO2% (BldA) [Mass fraction] 98 % Dr. Teagan Hall Work Phone: [facility] Work Phone: 01-09-2022 11:16-0400 Systolic blood pressure 119 mm[Hg] Dr. Teagan Hall Work Phone: [facility] Work Phone: 12-24-2021 13:36-0400 Body mass index (BMI) [Ratio] 21.4 kg/m2 Dr. Teagan Hall Work Phone: [facility] Work Phone: 12-24-2021 13:36-0400 Body weight 59.[address] Teagan aHll Work Phone: [facility] Work Phone: 12-24-2021 13:36-0400 Diastolic blood pressure 60 mm[Hg] Dr. Teagan Hall Work Phone: [facility] Work Phone: 12-24-2021 13:36-0400 Heart rate 64 /min Dr. Teagan Hall Work Phone: [facility] Work Phone: 12-24-2021 13:36-0400 Respiratory rate 16 /min Dr. Teagan Hall Work Phone: [facility] Work Phone: 12-24-2021 13:36-0400 Systolic blood pressure 130 mm[Hg] Dr. Teagan Hall Work Phone: [facility] Work Phone: 12-12-2021 12:17-0400 Diastolic blood pressure 43 mm[Hg] Dr. Teagan Hall Work Phone: [facility] Work Phone: 12-12-2021 12:17-0400 Heart rate 57 /min Dr. Teagan Hall Work Phone: [facility] Work Phone: 12-12-2021 12:17-0400 Respiratory rate 16 /min Dr. Teagan Hall Work Phone: [facility] Work Phone: 12-12-2021 12:17-0400 SaO2% (BldA) [Mass fraction] 98 % Dr. Teagan Hall Work Phone: [facility] Work Phone: 12-12-2021 12:17-0400 Systolic blood pressure 135 mm[Hg] Dr. Teagan Hall Work Phone: [facility] Work Phone: 12-12-2021 11:09-0400 Body mass index (BMI) [Ratio] 21.3 kg/m2 Dr. Teagan Hall Work Phone: [facility] Work Phone: 12-12-2021 11:09-0400 Body temperature 97.5 [degF] Dr. Teagan Hall Work Phone: [facility] Work Phone: 12-12-2021 11:09-0400 Body weight 58.[address] Teagan Hall Work Phone: [facility] Work Phone: 11-14-2021 10:53-0400 Body height 166.37 cm [facility] Work Phone: 11-14-2021 10:53-0400 Body mass index (BMI) [Ratio] 21.3 kg/m2 [facility] Work Phone: 11-14-2021 10:53-0400 Body temperature 96.6 [degF] [facility] Work Phone: 11-14-2021 10:53-0400 Body weight 58.96 kg [facility] Work Phone: 11-14-2021 10:53-0400 Diastolic blood pressure 53 mm[Hg] [facility] Work Phone: 11-14-2021 10:53-0400 Heart rate 74 /min [facility] Work Phone: 11-14-2021 10:53-0400 Respiratory rate 16 /min [facility] Work Phone: 11-14-2021 10:53-0400 SaO2% (BldA) [Mass fraction] 98 % [facility] Work Phone: 11-14-2021 10:53-0400 Systolic blood pressure 135 mm[Hg] [facility] Work Phone: 10-17-2021 12:08-0400 Body temperature 96.8 [degF] [facility] Work Phone: 10-17-2021 12:08-0400 Diastolic blood pressure 66 mm[Hg] [facility] Work Phone: 10-17-2021 12:08-0400 Heart rate 66 /min [facility] Work Phone: 10-17-2021 12:08-0400 Respiratory rate 16 /min [facility] Work Phone: 10-17-2021 12:08-0400 SaO2% (BldA) [Mass fraction] 100 % [facility] Work Phone: 10-17-2021 12:08-0400 Systolic blood pressure 127 mm[Hg] [facility] Work Phone: 10-17-2021 10:55-0400 Body weight 61.53 kg [facility] Work Phone: 09-19-2021 11:15-0400 Body height 165.1 cm [facility] Work Phone: 09-19-2021 11:15-0400 Body temperature 97.5 [degF] [facility] Work Phone: 09-19-2021 11:15-0400 Diastolic blood pressure 49 mm[Hg] [facility] Work Phone: 09-19-2021 11:15-0400 Heart rate 65 /min [facility] Work Phone: 09-19-2021 11:15-0400 Respiratory rate 16 /min [facility] Work Phone: 09-19-2021 11:15-0400 SaO2% (BldA) [Mass fraction] 100 % [facility] Work Phone: 09-19-2021 11:15-0400 Systolic blood pressure 121 mm[Hg] [facility] Work Phone: 08-20-2021 12:34-0400 Diastolic blood pressure 74 mm[Hg] Dr. Teagan Hall Work Phone: [facility] Work Phone: 08-20-2021 12:34-0400 Heart rate 70 /min Dr. Teagan Hall Work Phone: [facility] Work Phone: 08-20-2021 12:34-0400 Respiratory rate 16 /min Dr. Teagan Hall Work Phone: [facility] Work Phone: 08-20-2021 12:34-0400 SaO2% (BldA) [Mass fraction] 98 % Dr. Teagan Hall Work Phone: [facility] Work Phone: 08-20-2021 12:34-0400 Systolic blood pressure 149 mm[Hg] Dr. Teagan Hall Work Phone: [facility] Work Phone: 08-20-2021 11:15-0400 Body height 165.[address] Teagan Hall Work Phone: [facility] Work Phone: 08-20-2021 11:15-0400 Body mass index (BMI) [Ratio] 22.4 kg/m2 Dr. Teagan Hall Work Phone: [facility] Work Phone: 08-20-2021 11:15-0400 Body temperature 98.3 [degF] Dr. Teagan Hall Work Phone: [facility] Work Phone: 08-20-2021 11:15-0400 Body weight 61.[address] Teagan Hall Work Phone: [facility] Work Phone: 07-23-2021 13:51-0400 Body temperature 97 [degF] Dr. Teagan Hall Work Phone: [facility] Work Phone: 07-23-2021 13:51-0400 Diastolic blood pressure 78 mm[Hg] Dr. Teagan Hall Work Phone: [facility] Work Phone: 07-23-2021 13:51-0400 Heart rate 65 /min Dr. Teagan Hall Work Phone: [facility] Work Phone: 07-23-2021 13:51-0400 Respiratory rate 16 /min Dr. Teagan Hall Work Phone: [facility] Work Phone: 07-23-2021 13:51-0400 SaO2% (BldA) [Mass fraction] 96 % Dr. Teagan Hall Work Phone: [facility] Work Phone: 07-23-2021 13:51-0400 Systolic blood pressure 142 mm[Hg] Dr. Teagan Hall Work Phone: [facility] Work Phone: 07-23-2021 12:59-0400 Body height 165.[address] Teagan Hall Work Phone: [facility] Work Phone: 06-25-2021 11:13-0500 Body mass index (BMI) [Ratio] 21.9 kg/m2 [facility] Work Phone: 06-25-2021 11:13-0500 Body temperature 97.3 [degF] [facility] Work Phone: 06-25-2021 11:13-0500 Body weight 59.87 kg [facility] Work Phone: 06-25-2021 11:13-0500 Diastolic blood pressure 51 mm[Hg] [facility] Work Phone: 06-25-2021 11:13-0500 Heart rate 64 /min [facility] Work Phone: 06-25-2021 11:13-0500 Respiratory rate 16 /min [facility] Work Phone: 06-25-2021 11:13-0500 SaO2% (BldA) [Mass fraction] 100 % [facility] Work Phone: 06-25-2021 11:13-0500 Systolic blood pressure 112 mm[Hg] [facility] Work Phone: 06-25-2021 10:13-0500 Body mass index (BMI) [Ratio] 21.9 kg/m2 Dr. Teagan Hall Work Phone: [facility] Work Phone: 06-25-2021 10:13-0500 Body temperature 97.3 [degF] Dr. Teagan Hall Work Phone: [facility] Work Phone: 06-25-2021 10:13-0500 Body weight 59.[address] Teagan Hall Work Phone: [facility] Work Phone: 06-25-2021 10:13-0500 Diastolic blood pressure 51 mm[Hg] Dr. Teagan Hall Work Phone: [facility] Work Phone: 06-25-2021 10:13-0500 Heart rate 64 /min Dr. Teagan Hall Work Phone: [facility] Work Phone: 06-25-2021 10:13-0500 Respiratory rate 16 /min Dr. Teagan Hall Work Phone: [facility] Work Phone: 06-25-2021 10:13-0500 SaO2% (BldA) [Mass fraction] 100 % Dr. Teagan Hall Work Phone: [facility] Work Phone: 06-25-2021 10:13-0500 Systolic blood pressure 112 mm[Hg] Dr. Teagan Hall Work Phone: [facility] Work Phone: 05-28-2021 11:32-0500 Body temperature 96.8 [degF] Dr. Teagan Hall Work Phone: [facility] Work Phone: 05-28-2021 11:32-0500 Diastolic blood pressure 50 mm[Hg] Dr. Teagan Hall Work Phone: [facility] Work Phone: 05-28-2021 11:32-0500 Heart rate 70 /min Dr. Teagan Hall Work Phone: [facility] Work Phone: 05-28-2021 11:32-0500 Systolic blood pressure 126 mm[Hg] Dr. Teagan Hall Work Phone: [facility] Work Phone: 05-28-2021 10:38-0500 Respiratory rate 16 /min Dr. Teagan Hall Work Phone: [facility] Work Phone: 05-28-2021 10:38-0500 SaO2% (BldA) [Mass fraction] 98 % Dr. Teagan Hall Work Phone: [facility] Work Phone: 05-12-2021 09:56-0500 Body mass index (BMI) [Ratio] 22.1 kg/m2 Dr. Teagan Hall Work Phone: [facility] Work Phone: 05-12-2021 09:56-0500 Body weight 60.[address] Teagan Hall Work Phone: [facility] Work Phone: 05-12-2021 09:56-0500 Diastolic blood pressure 73 mm[Hg] Dr. Teagan Hall Work Phone: [facility] Work Phone: 05-12-2021 09:56-0500 Heart rate 80 /min Dr. Teagan Hall Work Phone: [facility] Work Phone: 05-12-2021 09:56-0500 Respiratory rate 18 /min Dr. Teagan Hall Work Phone: [facility] Work Phone: 05-12-2021 09:56-0500 Systolic blood pressure 137 mm[Hg] Dr. Teagan Hall Work Phone: [facility] Work Phone: 04-30-2021 11:16-0500 Body temperature 97.3 [degF] Dr. Teagan Hall Work Phone: [facility] Work Phone: 04-30-2021 11:16-0500 Diastolic blood pressure 60 mm[Hg] Dr. Teagan Hall Work Phone: [facility] Work Phone: 04-30-2021 11:16-0500 Heart rate 66 /min Dr. Teagan Hall Work Phone: [facility] Work Phone: 04-30-2021 11:16-0500 Respiratory rate 16 /min Dr. Teagan Hall Work Phone: [facility] Work Phone: 04-30-2021 11:16-0500 SaO2% (BldA) [Mass fraction] 99 % Dr. Teagan Hall Work Phone: [facility] Work Phone: 04-30-2021 11:16-0500 Systolic blood pressure 124 mm[Hg] Dr. Teagan Hall Work Phone: [facility] Work Phone: 04-30-2021 09:51-0500 Body mass index (BMI) [Ratio] 22.4 kg/m2 Dr. Teagan Hall Work Phone: [facility] Work Phone: 04-30-2021 09:51-0500 Body weight 61.[address] Teagan Hall Work Phone: [facility] Work Phone: 04-17-2021 13:19-0500 Body mass index (BMI) [Ratio] 22.3 kg/m2 Dr. Teagan Hall Work Phone: [facility] Work Phone: 04-17-2021 13:19-0500 Body temperature 98.4 [degF] Dr. Teagan Hall Work Phone: [facility] Work Phone: 04-17-2021 13:19-0500 Body weight 60.[address] Teagan Hall Work Phone: [facility] Work Phone: 04-17-2021 13:19-0500 Diastolic blood pressure 79 mm[Hg] Dr. Teagan Hall Work Phone: [facility] Work Phone: 04-17-2021 13:19-0500 Heart rate 74 /min Dr. Teagan Hall Work Phone: [facility] Work Phone: 04-17-2021 13:19-0500 Respiratory rate 17 /min Dr. Teagan Hall Work Phone: [facility] Work Phone: 04-17-2021 13:19-0500 SaO2% (BldA) [Mass fraction] 98 % Dr. Teagan Hall Work Phone: [facility] Work Phone: 04-17-2021 13:19-0500 Systolic blood pressure 147 mm[Hg] Dr. Teagan Hall Work Phone: [facility] Work Phone: 04-02-2021 11:29-0500 Diastolic blood pressure 52 mm[Hg] Dr. Teagan Hall Work Phone: [facility] Work Phone: 04-02-2021 11:29-0500 Heart rate 64 /min Dr. Teagan Hall Work Phone: [facility] Work Phone: 04-02-2021 11:29-0500 SaO2% (BldA) [Mass fraction] 100 % Dr. Teagan Hall Work Phone: [facility] Work Phone: 04-02-2021 11:29-0500 Systolic blood pressure 138 mm[Hg] Dr. Teagan Hall Work Phone: [facility] Work Phone: 04-02-2021 10:04-0500 Body mass index (BMI) [Ratio] 22.4 kg/m2 Dr. Teagan Hall Work Phone: [facility] Work Phone: 04-02-2021 10:04-0500 Body temperature 97.5 [degF] Dr. Teagan Hall Work Phone: [facility] Work Phone: 04-02-2021 10:04-0500 Body weight 61.[address] Teagan Hall Work Phone: [facility] Work Phone: 12-01-2021 10:04-0500 Respiratory rate 16 /min Dr. Teagan Hall Work Phone: [facility] Work Phone: 04-18-2020 11:28-0500 Body mass index (BMI) [Ratio] 23.1 kg/m2 Dr. Teagan Hall Work Phone: [facility] 04-18-2020 11:28-0500 Body temperature 97.4 [degF] Dr. Teagan Hall Work Phone: [facility] 04-18-2020 11:28-0500 Body weight 64.[address] Teagan Hall Work Phone: [facility] 04-18-2020 11:28-0500 Diastolic blood pressure 69 mm[Hg] Dr. Teagan Hall Work Phone: [facility] 04-18-2020 11:28-0500 Heart rate 72 /min Dr. Teagan Hall Work Phone: [facility] 04-18-2020 11:28-0500 Respiratory rate 20 /min Dr. Teagan Hall Work Phone: [facility] 04-18-2020 11:28-0500 SaO2% (BldA) [Mass fraction] 97 % Dr. Teagan Hall Work Phone: [facility] 04-18-2020 11:28-0500 Systolic blood pressure 114 mm[Hg] Dr. Teagan Hall Work Phone: [facility] 04-18-2020 10:28-0500 Body mass index (BMI) [Ratio] 23.1 kg/m2 Dr. Teagan Hall Work Phone: [facility] Work Phone: 04-18-2020 10:28-0500 Body temperature 97.4 [degF] Dr. Teagan Hall Work Phone: [facility] Work Phone: 04-18-2020 10:28-0500 Body weight 64.[address] Teagan Hall Work Phone: [facility] Work Phone: 04-18-2020 10:28-0500 Diastolic blood pressure 69 mm[Hg] Dr. Teagan Hall Work Phone: [facility] Work Phone: 04-18-2020 10:28-0500 Heart rate 72 /min Dr. Teagan Hall Work Phone: [facility] Work Phone: 04-18-2020 10:28-0500 Respiratory rate 20 /min Dr. Teagan Hall Work Phone: [facility] Work Phone: 04-18-2020 10:28-0500 SaO2% (BldA) [Mass fraction] 97 % Dr. Teagan Hall Work Phone: [facility] Work Phone: 04-18-2020 10:28-0500 Systolic blood pressure 114 mm[Hg] Dr. Teagan Hall Work Phone: [facility] Work Phone: Encounters Encounter Date Encounter Type Care Provider Facility Start: 01-01-2025 ambulatory [facility] Facility:[facility] Start: 01-01-2025 Emergency department patient visit [facility] Start: 12-27-2024 End: 12-27-2024 Holli JOEL -[facility] Work Phone: Start: 12-27-2024 End: 12-27-[address] Teagan Hall MD Work Phone: -[facility] Start: 12-22-2024 End: 12-22-[address] Teagan Hall MD Work Phone: -[facility] Start: 12-22-2024 End: 12-22-2024 Dr. Leena Serra MD -[facility] Work Phone: Start: 12-22-2024 End: 12-22-2024 ambulatory Macie Oleary Facility:[facility] Start: 12-19-2024 End: 12-19-[address] Elias Arevalo MD -[facility] Start: 12-19-2024 End: 12-19-2024 Shaila JOEL -[facility] Work Phone: Start: 12-19-2024 End: 12-19-[address] Teagan Hall MD Work Phone: -[facility] Start: 12-06-2024 Non-patient / Non-visit Dr. Ajith lai [facility] Work Phone: Start: 12-06-2024 Dr. Ajith Quiñones MD -[facility] Work Phone: Start: 12-05-2024 Non-patient / Non-visit Dr. Ajith lai MD [facility] Work Phone: Start: 12-05-2024 Dr. Ajith Quiñones MD [facility] Work Phone: Start: 12-05-2024 Non-patient / Non-visit Dr. Mariia LOPES [facility] Start: 12-05-2024 Dr. Elias Arevalo MD [facility] Start: 12-04-2024 Non-patient / Non-visit Dr. Ballesteros [facility] Work Phone: Start: 12-04-2024 Non-patient / Non-visit Dr. Rojas [facility] Start: 12-04-2024 End: 12-04-[address] Teagan Hall MD Work Phone: [facility] Start: 12-04-2024 End: 12-04-2024 Patient encounter procedure Iza Latasha [facility] Work Phone: Start: 12-04-2024 ambulatory Michael Wright Facility:[facility] Start: 12-04-2024 Non-patient / Non-visit Dr. Michael powell MD -[facility] Start: 12-04-2024 End: 12-04-2024 Dr. Elias Arevalo [facility] Work Phone: Start: 12-03-2024 Non-patient / Non-visit Dr. Mariia LOPES [facility] Start: 12-03-2024 Dr. Elias Arevalo MD [facility] Start: 12-03-2024 Non-patient / Non-visit Dr. Marga dee MD [facility] Work Phone: Start: 12-03-2024 Dr. [facility]cher [facility] Work Phone: Start: 12-02-2024 ambulatory Elias Arevalo Facility:[facility] Start: 12-02-2024 End: 12-06-2024 Evaluation and management of inpatient Dr. Sean Thornton DO -[facility] Work Phone: Start: 12-02-2024 Non-patient / Non-visit Dr. Marga dee MD [facility] Work Phone: Start: 12-02-2024 Dr. Marga Butcher MD [facility] Work Phone: Start: 12-02-2024 End: 12-06-2024 Evaluation and management of inpatient Dr. Ajith Quiñones MD -[facility] Work Phone: Start: 12-02-2024 End: 12-06-2024 Dr. Ajith Quiñones MD -[facility] Work Phone: Start: 12-01-2024 ambulatory Linda Woods lity:[facility] Start: 12-01-2024 Non-patient / Non-visit Dr. Marga dee MD [facility] Work Phone: Start: 12-01-[address] [facility] Work Phone: Start: 11-30-2024 ambulatory Sean Lazar ility:[facility] Start: 11-30-2024 Evaluation and manag ement of inpatient Dr. Sean Thornton DO [facility] Work Phone: Start: 11-30-2024 Non-patient / Non-visit Dr. Ballesteros [facility] Work Phone: Start: 11-30-[address] Teagan Hall MD Work Phone: -[facility] Surgical 3 Start: 11-30-2024 Dr. Sean Thornton [facility] Work Phone: Start: 10-23-2024 End: 10-23-[address] Matteo Jonas MD -[facility] Work Phone: Start: 10-23-2024 End: 10-23-2024 Dr. Matteo Jonas MD -[facility] Work Phone: Start: 10-23-2024 End: 10-23-[address] Teagan Hall MD Work Phone: [facility] Work Phone: Start: 10-20-2024 End: 10-20-[address] Teagan Hall MD Work Phone: [facility] Start: 10-20-2024 End: 10-20-[address] Elias Arevalo MD -[facility] Work Phone: Start: 10-20-2024 End: 10-20-2024 Dr. Elias Arevalo MD -[facility] Work Phone: Start: 10-16-2024 End: 10-16-[address] Teagan Hall MD Work Phone: [facility] Work Phone: Start: 10-16-2024 End: 10-16-[address] Matteo Jonas MD -[facility] Work Phone: Start: 10-16-2024 End: 10-16-2024 Dr. Matteo Jonas MD -[facility] Work Phone: Start: 10-16-2024 End: 10-16-2024 ambulatory Teagan Hall Facility:[facility] Start: 09-29-2024 End: 09-29-[address] Teagan Hall MD Work Phone: [facility] Work Phone: Start: 09-29-2024 End: 09-29-[address] Leena Serra MD -[facility] Work Phone: Start: 09-29-2024 End: 09-29-2024 Dr. Leena Serra MD -[facility] Work Phone: Start: 09-29-2024 End: 09-29-2024 ambulatory Teagan Hall Facility:[facility] Start: 09-12-2024 End: 09-12-[address] Elias Arevalo MD -[facility] Work Phone: Start: 09-12-2024 End: 09-12-2024 Dr. Elias Arevalo MD -[facility] Work Phone: Start: 09-12-2024 End: 09-12-[address] Teagan Hall MD Work Phone: [facility] Work Phone: Start: 07-28-2024 End: 07-28-[address] Teagan Hall MD Work Phone: [facility] Work Phone: Start: 07-28-2024 End: 07-28-2024 [facility] encounter [facility] Work [facility] Start: 07-28-2024 End: 07-28-2024 ambulatory Teagan Hall Facility:[facility] Start: 07-23-2024 End: 07-23-2024 Emergency department patient visit Dr. Teagan Hall MD Work Phone: -Emergency Department Work Phone: Start: 07-22-2024 End: 07-22-[address] Teagan Hall MD Work Phone: [facility] Work Phone: Start: 07-22-2024 End: 07-22-2024 Patient encounter procedure Holli Gaona PA -Laboratory Work Phone: Start: 07-21-2024 End: 07-22-2024 ambulatory Holli JOEL Facility:[facility] Start: 07-21-2024 End: 07-21-[address] Elias Arevalo MD -[facility] Work Phone: Start: 07-04-2024 End: 07-04-[address] Teagan Hall MD Work Phone: [facility] Work Phone: Start: 07-04-2024 End: 07-04-[address] Tripp Childress MD -Laboratory, [place] Work Phone: Start: 07-04-2024 End: 07-04-2024 ambulatory [facility] Facility:[facility] Start: 06-14-2024 End: 06-14-[address] Tripp Childress MD -[facility] Work Phone: Start: 06-14-2024 End: 06-14-2024 ambulatory [facility] Facility[facility] Start: 06-02-2024 End: 06-02-[address] Leena Serra MD -Laboratory, [place] Work Phone: Start: 06-02-2024 End: 06-02-2024 ambulatory Teagan Hall Facility:[facility] Start: 05-01-2024 End: 05-01-2024 Patient encounter procedure Holli JOEL -[facility] Work Phone: Start: 05-01-2024 End: 05-01-2024 ambulatory Teagan Hall Facility:[facility] Start: 04-21-2024 End: 04-21-2024 ambulatory Teagan Hall Facility:[facility] Start: 04-21-2024 End: 04-21-[address] Elias Arevalo MD -[facility] Work Phone: Start: 02-15-2024 End: 02-15-2024 ambulatory Holli Gaona PA Facility:[facility] Start: 02-01-2024 End: 02-01-2024 ambulatory Holli JOEL Facility:[facility] Start: 01-21-2024 End: 01-21-2024 ambulatory Teagan Hall Facility:[facility] Start: 01-20-2024 End: 01-20-2024 ambulatory Teagan Hall Facility:[facility] Start: 08-24-2023 Non-patient / Non-visit Dr. Marge Hall Work Phone: [facility] Start: 08-24-2023 End: 08-24-[address] Teagan Hall Work Phone: [facility] Work Phone: Start: 08-24-2023 End: 08-24-[address] Teagan Hall Work Phone: [facility] Work Phone: Start: 08-23-2023 End: 08-23-[address] Teagan Hall Work Phone: [facility] Work Phone: Start: 08-23-2023 End: 08-23-[address] Teagan Hall Work Phone: [facility] Work Phone: Start: 08-03-2023 Telephone encounter Patito Gonzalez DO Work Phone: [facility] Start: 08-03-2023 End: 08-03-2023 ambulatory TEAGAN HALL [facility] Start: 08-03-2023 End: 08-03-2023 Office outpatient visit 15 minutes Patito Gonzalez DO Work Phone: [facility] Comment on above: Pulmonary lesion (Pr imary Dx); Pleural effusion Start: 07-19-2023 End: 07-19-[address] Teagan Hall Work Phone: [facility] Work Phone: Start: 07-19-2023 End: 07-19-[address] Teagan Hall Work Phone: [facility] Work Phone: Start: 07-16-2023 End: 07-16-[address] Teagan Hall Work Phone: [facility] Work Phone: Start: 07-12-2023 End: 07-12-[address] Teagan Hall Work Phone: [facility] Work Phone: Start: 07-12-[address] Teagan castelan Work Phone: [facility] Start: 07-05-2023 End: 07-05-[address] Teagan Hall Work Phone: [facility] Work Phone: Start: 07-05-2023 End: 07-05-[address] Teagan Hall Work Phone: [facility], [facility] Work Phone: Start: 06-30-2023 Telephone encounter Ladi Sharp [facility] Pulmonary and Sleep Medicine Comment on above: Care Coordination Start: 06-23-2023 End: 06-23-[address] Teagan Hall Work Phone: [facility] Work Phone: Start: 06-23-2023 End: 06-23-[address] [facility] Start: 05-26-2023 End: 05-26-[address] Teagan Hall Work Phone: [facility] Work Phone: Start: 05-26-2023 End: 05-26-[address] Teagan Hall [facility]: Start: 05-13-2023 Non-patient / Non-visit Dr. Marge Hall Work Phone: [facility] Start: 05-12-2023 Non-patient / Non-visit Dr. Marge Hall Work Phone: [facility] Start: 05-12-2023 End: 05-12-[address] Teagan Hall Work Phone: [facility] Work Phone: Start: 05-12-2023 End: 05-12-[address] Teagan Hall Work Phone: [facility]-Pulmonary Services/Neurology Work Phone: Start: 05-11-2023 End: 05-11-[address] Teagan Hall Work Phone: [facility] Work Phone: Start: 05-11-2023 End: 05-11-[address] Teagan Hall Work Phone: [facility]-Pulmonary Services/Neurology Work Phone: Start: 05-07-2023 End: 05-07-2023 Non-patient / Non-visit Dr. Teagan Hall Work Phone: [facility] Work Phone: Start: 05-07-2023 End: 05-07-2023 Admission to same day surgery center Dr. Teagan Hall Work Phone: [facility]Weight Engineer/Special Procedures Work Phone: Start: 05-07-2023 End: 05-07-[address] Teagan Hall Work Phone: [facility] Work Phone: Start: 05-04-2023 End: 05-04-[address] Teagan Hall Work Phone: [facility] Work Phone: Start: 05-04-2023 End: 05-04-[address] Teagan Hall Work Phone: [facility]-Laboratory, OP Pavilion Start: 05-04-2023 End: 05-04-[address] Teagan Hall Work Phone: [facility] Work Phone: Start: 04-08-2023 Non-patient / Non-visit Dr. Marge Hall Work Phone: [facility] Start: 04-08-2023 End: 04-08-[address] Teagan Hall Work Phone: [facility] Work Phone: Start: 04-08-2023 End: 04-08-[address] Teagan Hall Work Phone: [facility], [facility] Work Phone: Start: 04-08-2023 End: 04-08-2023 Dr. Teagan Hall Work Phone: [facility]-Ultrasound, [facility] Work Phone: Start: 04-07-2023 End: 04-07-[address] Teagan Hall Work Phone: [facility] Work Phone: Start: 04-07-2023 End: 04-07-[address] Teagan Hall Work Phone: [facility] Work Phone: Start: 04-07-2023 End: 04-07-2023 Dr. Teagan Hall Work Phone: [facility] Work Phone: Start: 04-07-2023 End: 04-07-[address] Teagan Hall Work Phone: [facility] Work Phone: Start: 04-07-2023 End: 04-07-2023 Dr. Teagan Hall Work Phone: [facility] Work Phone: Start: 04-05-2023 End: 04-05-[address] Teagan Hall Work Phone: [facility] Work Phone: Start: 04-05-2023 End: 04-05-[address] Teagan Hall Work Phone: [facility] Work Phone: Start: 04-05-2023 End: 04-05-2023 Dr. Teagan Hall Work Phone: [facility] Work Phone: Start: 04-03-2023 End: 04-03-[address] Teagan Hall Work Phone: [facility] Work Phone: Start: 03-29-2023 End: 03-29-[address] [facility] Hall [facility] Work Phone: Start: 03-29-2023 End: 03-29-2023 Dr. Teagan Hall [facility] Work Phone: Start: 03-17-2023 End: 03-17-[address] Teagan Hall Work Phone: [facility] Work Phone: Start: 03-17-2023 End: 03-17-[address] Teagan Hall Work Phone: [facility] Work Phone: Start: 03-17-2023 End: 03-17-2023 Dr. Teagan Hall Work Phone: [facility] Work Phone: Start: 03-04-2023 End: 03-04-[address] Teagan Hall [facility] Work Phone: Start: 03-04-2023 End: 03-04-2023 Dr. Teagan Hall [facility] Work Phone: Start: 02-25-2023 End: 02-25-[address] Teagan Hall [facility] Work Phone: Start: 02-25-2023 End: 02-25-2023 Dr. Teagan Hall Work Phone[facility] Work Phone: Start: 02-25-2023 Non-patient / Non-visit Dr. Marge Hall Work Phone: [facility] Start: 02-25-2023 Dr. Teagan orellana Work Phone: [facility] Start: 02-25-2023 Non-patient / Non-visit Dr. Marge Hall Work Phone: [facility] Work Phone: Start: 02-25-2023 Dr. Teagan orellana Work Phone: [facility] Work Phone: Start: 02-24-2023 Non-patient / Non-visit Dr. Marge Hall Work Phone: [facility] Start: 02-24-2023 Dr. Teagan orellana Work Phone: [facility] Start: 02-23-2023 Non-patient / Non-visit Dr. Marge Hall Work Phone: [facility] Work Phone: Start: 02-23-2023 End: 02-25-2023 Evaluation and management of inpatient Dr. Teagan Hall Work Phone: [facility] Work Phone: Start: 02-23-2023 End: 02-25-2023 Dr. Teagan Hall Work Phone: [facility]-Intensive Care Unit Work Phone: Start: 02-22-2023 Non-patient / Non-visit Dr. Marge Hall Work Phone: [facility] Start: 02-22-2023 End: 02-22-[address] Teagan Hall Work Phone: [facility] Work Phone: Start: 02-22-2023 End: 02-22-[address] Teagan Hall Work Phone: [facility], [facility] Work Phone: Start: 02-22-2023 End: 02-22-2023 Dr. Teagan Hall Work Phone: [facility] Start: 02-17-2023 End: 02-17-[address] Teagan Hall Work Phone: [facility] Work Phone: Start: 02-17-2023 End: 02-17-[address] Teagan Hall Work Phone: [facility] Work Phone: Start: 02-17-2023 End: 02-17-2023 Dr. Teagan Hall Work Phone: [facility] Work Phone: Start: 02-11-2023 End: 02-11-[address] Teagan Hall Work Phone: [facility] Work Phone: Start: 02-11-2023 End: 02-11-2023 Dr. Teagan Hall Work Phone: [facility] Work Phone: Start: 02-08-2023 Non-patient / Non-visit Dr. Marge Hall Work Phone: [facility] Work Phone: Start: 02-08-2023 Dr. Teagan orellana Work Phone: [facility] Work Phone: Start: 02-04-2023 End: 02-04-[address] Teagan Hall Work Phone: [facility] Work Phone: Start: 02-04-2023 End: 02-04-2023 Dr. Teagan Hall Work Phone: [facility] Work Phone: Start: 02-04-2023 End: 02-04-[address] Teagan Hall Work Phone: [facility] Work Phone: Start: 02-04-2023 End: 02-04-2023 Dr. Teagan Hall Work Phone: [facility] Work Phone: Start: 01-27-2023 Non-patient / Non-visit Dr. Marge Hall Work Phone: [facility] Start: 01-27-2023 Dr. Teagan orellana Work Phone: [facility] Start: 01-27-2023 End: 01-27-2023 Emergency department patient visit Dr. Teagan Hall Work Phone: [facility]Emergency Department Work Phone: Start: 01-27-2023 End: 01-27-2023 Dr. Teagan Hall Work Phone: [facility]-Emergency Department Work Phone: Start: 01-25-2023 End: 01-25-[address] Teagan Hall Work Phone: [facility] Work Phone: Start: 01-25-2023 End: 01-25-2023 Dr. Teagan Hall Work Phone: [facility] Work Phone: Start: 01-25-2023 End: 01-25-[address] Teagan Hall Work Phone: [facility] Work Phone: Start: 01-25-2023 End: 01-25-2023 Dr. Teagan Hall Work Phone: [facility] Work Phone: Start: 01-20-2023 End: 01-20-[address] Teagan Hall Work Phone: [facility] Work Phone: Start: 01-20-2023 End: 01-20-[address] Teagan Hall [facility]: Start: 01-20-2023 End: 01-20-2023 Dr. Teagan Hall [facility] Work [facility]: Start: 01-17-2023 End: 01-18-2023 Emergency department patient visit Dr. Teagan Hall Work Phone: [facility]-Emergency Department Work Phone: Start: 01-17-2023 End: 01-18-2023 Dr. Teagan Hall Work Phone: [facility]-Emergency Department Work Phone: Start: 01-15-2023 End: 01-15-[address] Teagan Hall Work Phone: [facility] Work Phone: Start: 01-15-2023 End: 01-15-[address] Teagan Hall Work Phone: [facility]-Pulmonary Services/Neurology Work Phone: Start: 01-15-2023 End: 01-15-2023 Dr. Teagan Hall Work Phone: [facility]-Pulmonary Services/Neurology Work Phone: Start: 01-07-2023 End: 01-07-[address] Teagan Hall Work Phone: [facility] Work Phone: Start: 01-07-2023 End: 01-07-2023 Dr. Teagan Hall Work Phone: [facility] Work Phone: Start: 01-06-2023 End: 01-06-2023 Emergency department patient visit Dr. Teagan Hall [facility] Phone[facility] Work Phone: Start: 01-06-2023 End: 01-06-2023 Dr. Teagan Hall [facility] Phone[facility] Work Phone: Start: 01-05-2023 End: 01-05-[address] Teagan Hall Work Phone: [facility] Work Phone: Start: 01-05-2023 End: 01-05-2023 Dr. Teagan Hall Work Phone: [facility] Work Phone: Start: 01-05-2023 End: 01-05-2023 Office outpatient visit 15 minutes Patito Gonzalez DO Work Phone: [facility] Pulmonary and Sleep Medicine Comment on above: Lung nodule (Primary Dx); Pleural effusion; COLE (dyspnea on exertion) Start: 01-04-2023 Non-patient / Non-visit Dr. Marge Hall Work Phone: [facility] Work Phone: Start: 01-04-2023 Dr. Teagan orellana Work Phone: [facility] Work Phone: Start: 01-03-2023 Non-patient / Non-visit Dr. Marge Hall Work Phone: [facility] Work Phone: Start: 01-03-2023 End: 01-04-2023 Dr. Teagan Hall [facility] Work Phone: Start: 01-03-2023 End: 01-04-2023 Evaluation and management of inpatient Dr. Teagan Hall Work Phone[facility] Work Phone: Start: 01-03-[address] Teagan Hall Work Phone: [facility] Work Phone: Start: 01-01-2023 End: 01-05-2023 [facility] Start: 12-30-2022 End: 12-30-[address] Teagan Hall Work Phone: [facility] Work Phone: Start: 12-30-2022 End: 12-30-[address] Teagan Hall Work Phone: [facility]-Radiology, [facility] Work Phone: Start: 12-30-2022 End: 12-30-2022 Dr. Teagan Hlal Work Phone: [facility]-Radiology, [facility] Work Phone: Start: 12-29-2022 End: 12-29-[address] Teagan Hall Work Phone: [facility]-Cat Scan, [facility] Work Phone: Start: 12-29-[address] Teagan castelan Work Phone: [facility] Start: 12-29-2022 End: 12-29-2022 Dr. Teagan Hall Work Phone: [facility] Start: 12-11-2022 End: 12-11-[address] Teagan Hall Work Phone: [facility] Work Phone: Start: 12-11-2022 End: 12-11-[address] Teagan Hall [facility] Work Phone: Start: 12-11-2022 End: 12-11-2022 Dr. Teagan Hall [facility] Phone[facility] Work [facility]: Start: 12-09-2022 End: 12-09-[address] Teagan Hall [facility] Work [facility]: Start: 12-09-2022 End: 12-09-2022 Dr. Teagan Hall [facility] Phone[facility] Work [facility]: Start: 11-12-2022 End: 11-12-2022 Emergency department patient visit Dr. Teagan Hall Work Phone[facility] Work Phone: Start: 11-12-2022 End: 11-12-2022 Dr. Teagan Hall Work Phone: [facility]Emergency Department Work Phone: Start: 11-11-2022 End: 11-11-[address] Teagan Hall Work Phone: [facility] Work Phone: Start: 11-11-2022 End: 11-11-[address] Teagan Hall [facility]: Start: 11-11-2022 End: 11-11-2022 Dr. Teagan Hall Work Phone: [facility] Work Phone: Start: 10-30-2022 End: 10-30-[address] Teagan Hall Work Phone: [facility] Work Phone: Start: 10-30-2022 End: 10-30-[address] Teagan Hall Work Phone: [facility] Work Phone: Start: 10-30-2022 End: 10-30-2022 Dr. Teagan Hall Work Phone: [facility] Work Phone: Start: 10-14-2022 End: 10-14-[address] Teagan Hall Work Phone: [facility] Work Phone: Start: 10-14-2022 End: 10-14-[address] Teagan Hall Work Phone: [facility] Start: 10-01-2022 End: 10-01-[address] Teagan Hall Work Phone: [facility] Start: 09-30-2022 Telephone encounter Ladi Sharp [facility] Pulmonary [facility] Sleep Medicine Comment on above: Care Coordination (L hadley Nodule Follow Up ) Start: 09-29-2022 End: 09-29-2022 Phys/qhp telephone evaluation 21-30 min Tevin Vidal MD Work Phone: [facility] Pulmonary and Sleep Medicine Comment on above: Lung mass (Primary D x); History of breast cancer; Rheumatoid arthritis with inflammatory polyarthropathy (HCC) Start: 09-25-2022 End: 09-29-2022 ambulatory JOSEPH. SHAHJeison [facility] Start: 09-22-2022 End: 09-22-2022 ambulatory PATITO GONZALEZ [facility] Start: 09-20-2022 End: 09-21-2022 ambulatory TEAGAN HALL [facility] Start: 09-16-2022 End: 09-16-[address] Teagan Hall [facility] Start: 09-16-2022 End: 09-16-2022 ambulatory TEAGAN HALL [facility] Start: 09-10-[address] Teagan castelan Work Phone: [facility] Start: 09-10-2022 End: 09-10-[address] Teagan Hall Work Phone: [facility] Start: 08-25-2022 End: 08-25-[address] Teagan Hall Work Phone: [facility] Start: 08-24-2022 End: 08-24-[address] Teagan Hall Work Phone: [facility] Start: 08-20-2022 End: 08-20-2022 Evaluation and management of inpatient TEAGAN HALL Facility:[facility] Start: 08-19-2022 End: 08-19-2022 Emergency department patient visit Dr. Teagan Hall Work Phone: [facility]Emergency Department Start: 08-19-2022 End: 08-19-[address] Teagan Hall Work Phone: [facility] Work Phone: Start: 08-19-2022 End: 08-19-[address] Teagan Hall [facility] Start: 08-14-2022 End: 08-14-[address] Teagan Hall Work Phone: [facility] Work Phone: Start: 08-14-2022 End: 08-14-[address] Teagan Hall Work Phone: [facility] Start: 08-13-2022 End: 08-13-2022 ambulatory MARCUS JIMENEZ MELLO Facility:[facility] Start: 08-13-2022 End: 08-13-2022 Patient encounter procedure Marcus Mello DPM Work Phone: [facility] Orthopedics Comment on above: Post-operative state (Primary Dx) Start: 07-22-2022 End: 07-22-[address] Teagan Hall Work Phone: [facility] Work Phone: Start: 07-22-2022 End: 07-22-[address] Teagan Hall Work Phone: [facility] Start: 07-09-2022 End: 07-09-2022 ambulatory MARCUS JIMENEZ MELLO Facility:[facility] Start: 07-09-2022 End: 07-09-2022 Patient encounter procedure Marcus Mello DPM Work Phone: [facility] Comment on above: Post-operative state (Primary Dx); Wound dehiscence Start: 07-03-2022 End: 07-03-[address] Teagan Hall Work Phone: [facility] Work Phone: Start: 07-03-2022 End: 07-03-[address] Teagan Hall Work Phone: [facility] Start: 07-01-2022 End: 07-01-[address] Teagan Hall Work Phone: [facility] Start: 06-29-2022 Patient encounter procedure [facility] [facility] Start: 06-24-2022 End: 06-24-[address] Teagan Hall Work Phone: [facility] Work Phone: Start: 06-24-2022 End: 06-24-[address] Teagan Hall Work Phone: [facility] Start: 06-19-2022 Telephone encounter Ag Orth Work Phone: [facility] Comment on above: Patient Question (At tempted to reach patient to let them know about a voided payment taken at Office Visit 06/18/22. Unable to pay $75 on $200+ balance, transaction was voided. On 06/19 sent out voided reciept to patient. ) Start: 06-18-2022 End: 06-18-2022 ambulatory MARCUS MELLO Facility:[facility] Start: 06-16-2022 Non-patient / Non-visit Dr. Marge Hall Work Phone: [facility] Start: 06-05-2022 End: 06-05-2022 ambulatory MARCUS MELLO Facility:[facility] Start: 06-05-2022 End: 06-05-2022 Patient encounter procedure Marcus Mello DPM Work Phone: [facility] Comment on above: Post-operative state (Primary Dx); History of ankle surgery Start: 05-29-2022 End: 05-29-2022 ambulatory MARCUS MELLO Facility:[facility] Start: 05-29-2022 End: 05-29-2022 Patient encounter procedure Marcus Mello DPM Work Phone: [facility] Comment on above: Post-operative state (Primary Dx) Start: 05-22-2022 End: 05-22-[address] Teagan Hall Work Phone: [facility] Work Phone: Start: 05-22-2022 End: 05-22-[address] Teagan Hall Work Phone: [facility] Start: 05-18-2022 End: 05-18-2022 ambulatory MARCUS MELLO Facility:[facility] Start: 05-05-2022 End: 05-06-2022 ambulatory MARCUS MELLO Facility:[facility] Start: 05-05-2022 Encounter for other preprocedural examination MARCUS MELLO [facility] Start: 05-05-2022 End: 05-05-2022 Admission to [facility] Start: 05-05-2022 End: 05-05-2022 ambulatory Pst 1 Pre Surgical Testing Comment on above: Preop examination [Z 01.818 (ICD-10-CM)] (Primary Dx); 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 Teagan Hall Work Phone: [facility] Start: 04-16-[address] 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 Teagan Hall Work Phone: [facility] Work Phone: Start: 04-03-2022 End: 04-03-[address] Teagan Hall Work Phone: [facility] Start: 04-01-2022 End: 04-01-2022 ambulatory MARCUS MELLO Facility:[facility] Start: 03-18-2022 Telephone encounter Marcus garibay Funmilayo DPM Work Phone: [facility] Comment on above: Orders Start: 03-18-2022 End: 03-18-2022 ambulatory MARCUS MELLO Facility:[facility] Start: 03-18-2022 End: 03-18-2022 Patient encounter procedure Marcus Jimenez Mello DPM Work Phone: [facility] Comment on above: History of ankle criselda gabbie (Primary Dx); Chronic pain of left ankle; Wound dehiscence; Decreased pedal pulses Start: 03-06-2022 End: 03-06-[address] Teagan Hall Work Phone: [facility] Work Phone: Start: 03-06-2022 End: 03-06-[address] [facility] Start: 02-24-2022 End: 02-24-[address] Teagan Hall Work Phone: [facility] Work Phone: Start: 02-24-2022 End: 02-24-[address] Teagan Hall Work Phone: [facility] Start: 02-09-2022 End: 02-09-[address] Teagan Hall Work Phone: [facility] Work Phone: Start: 02-09-2022 End: 02-09-[address] Teagan Hall Work Phone: [facility] Start: 02-06-2022 End: 02-06-[address] Teagan Hall Work Phone: [facility] Work Phone: Start: 02-06-2022 End: 02-06-[address] [facility] Start: 02-05-2022 Non-patient / Non-visit Dr. Marge Hall Work Phone: [facility] Start: 02-05-2022 End: 02-05-[address] Teagan Hall Work Phone: [facility] Work Phone: Start: 02-05-2022 End: 02-05-[address] Teagan Hall Work Phone: [facility] Start: 01-20-2022 Non-patient / Non-visit Dr. Marge Hall Work Phone: [facility] Start: 01-20-2022 End: 01-20-[address] Teagan Hall Work Phone: [facility] Work Phone: Start: 01-20-2022 End: 01-20-[address] Teagan Hall Work Phone: [facility] Start: 01-09-2022 End: 01-09-[address] Teagan Hall Work Phone: [facility] Work Phone: Start: 01-09-2022 End: 01-09-[address] [facility] Start: 12-24-2021 End: 12-24-[address] Teagan Hall Work Phone: [facility] Start: 12-12-2021 End: 12-12-[address] Teagan Hall Work Phone: [facility] Start: 11-20-2021 End: 11-20-2021 Patient encounter procedure [facility] Start: 11-14-2021 End: 11-14-2021 Patient encounter procedure [facility] Start: 10-17-2021 End: 10-17-2021 Patient encounter procedure [facility] Start: 09-19-2021 End: 09-19-2021 Patient encounter procedure [facility] Start: 08-20-2021 End: 08-20-[address] [facility] Start: 07-23-2021 End: 07-23-[address] [facility] Start: 07-03-2021 End: 07-03-[address] Teagan Hall Work Phone: [facility] Start: 06-25-2021 End: 06-25-[address] [facility] Start: 05-28-2021 End: 05-28-[address] Te[facility] Hall [facility] Start: 05-12-2021 End: 05-12-[address] Teagan Hall Work Phone: [facility] Start: 04-30-[address] [facility] Start: 04-17-[address] Teagan castelan Work Phone: [facility] Start: 04-17-2021 End: 04-17-[address] Teagan Hall Work Phone: [facility] Start: 04-02-[address] Teagan Hall Work Phone: [facility] Start: 12-24-[address] Yann Hall Work Phone: [facility] Start: 10-29-2017 End: 10-29-2017 Ambulatory JOSE L KISHMAN Facility:[facility] Start: 08-25-2017 End: 08-25-2017 Ambulatory JOSE L KISHMAN Facility:[facility] Start: 07-21-2017 End: 07-21-2017 Ambulatory JOSE L KISHMAN Facility:[facility] Start: 06-30-2017 End: 06-30-2017 Ambulatory JOSE L KISHMAN Facility:[facility] Start: 06-02-2017 End: 06-02-2017 Ambulatory JOSE L KISHMAN Facility:[facility] Start: 05-12-2017 End: 05-12-2017 Ambulatory JOSE L KISHMAN Facility:[facility] Start: 05-05-2017 End: 05-05-2017 Ambulatory JOSE L KISHMAN Facility:[facility] Start: 04-17-2017 End: 04-22-2017 Evaluation and management of inpatient Teagan Hall Facility:[facility] Procedures Date Procedure Procedure Detail Performing Clinician [...] Phone: Start: 12-05-2024 MRI of cervical spine Addison Hall MD Work Phone: Start: 12-04-2024 Estimated [...] Teagan Hall MD Work Phone: Start: 09-29-2024 Platelet mean [...] Borderline: 0.25 - 0.40 Positive: >0.40Performed at: [address] [id number] Director: Luis Carlos Cerna MD, Phone: [phone] Start: 07-04-2024 X-ray of chest, PA a [...] Speci men Type: BLOOD SPECIMEN Ordering Facility: [facility] Address: [address] [place] [id number] Performed By: #### 2 [id number] #### [facility] CLIA [id number] [address] [place] [address] OF [facility] Start: 08-19-2022 Plain X-ray of tibia [...] DTaP/Tdap/Td Vaccines (2 - Td or Tdap) [facility] Start: 12-27-2024 [facility] results [facility] Start: 12-19-2024 X-ray of cervical spine Cerv S pine 4 or 5 Views [facility] Start: 12-19-2024 XR Cervical spine 4 or 5 Views [facility] Start: 12-06-2024 [facility] Start: 12-05-2024 MRI of cervical spine Spine Ce rvical (Routine) [facility] Start: 12-05-2024 Complete blood count [facility] Start: 12-03-2024 End: 12-03-2024 [facility] Start: 12-03-2024 Care planning and pr oblem solving actions [facility] Start: 12-03-2024 Recommendation to co ntinue with treatment [facility] Start: 12-02-2024 Care planning and pr oblem solving actions [facility] Start: 12-02-2024 [facility] Start: 12-02-2024 Referral to hose coupling joiner [facility] Start: 12-02-2024 [facility] Start: 12-02-2024 Admission procedure [facility] Start: 12-02-2024 [facility] Start: 11-30-2024 Ambulation without limitation [facility] Start: 11-30-2024 Assessment of risk o f venous thromboembolism [facility] Start: 11-30-2024 Insertion of cathete r into peripheral vein [facility] Start: 11-30-2024 Measuring intake and output [facility] Start: 11-30-2024 Providing care accor ding to standard [facility] Start: 11-30-2024 Referral to occupati onal therapist [facility] Start: 11-30-2024 Referral to service [facility] Start: 11-30-2024 [facility] Start: 11-30-2024 Following clinical p athway protocol [facility] Start: 11-30-2024 Verification routine [facility] Start: 11-30-2024 Hospital admission, emergency, from emergency room, medical nature [facility] Start: 11-30-2024 Verification routine [facility] Start: 11-30-2024 Admission procedure [facility] Start: 11-30-2024 Patient referral to dietitian [facility] Start: 06-14-2024 Venous catheter care management [facility] Start: 01-02-2024 Influenza vaccination Influenz a Vaccine (Season Ended) [facility] Start: 08-24-2023 [facility] Start: 08-24-2023 Vital signs measurements [facility] Start: 08-03-2023 End: 08-03-2023 Telemedicine consultation with patient 08/03/2023 10:30 AM EDT Telemedicine [facility] [address] [place] [id number] Patito Gonzalez DO [address] [place] [address] [facility] Start: 07-19-2023 Anaerobic microbial culture Anaerobic Culture [facility] Start: 07-19-2023 Microbial culture, b yun fluid [facility] Start: 07-19-2023 [facility] Start: 07-19-2023 Vital signs measurements [facility] Start: 07-05-2023 Venous catheter care management [facility] Start: 06-23-2023 Iv infusion therapy/prophylaxis /dx 1st to 1 hr THER/PROPH/DIAG IV INF INIT [facility] Start: 05-03-2023 Medicare Advantage A nnual Wellness Visit Medicare Advantage Annual Wellness Visit [facility] Start: 04-08-2023 [facility] Start: 04-08-2023 Vital signs measurements [facility] Start: 02-25-2023 [facility] Start: 02-25-2023 XR Chest PA and Lateral [facility] Start: 02-25-2023 [facility] Start: 02-24-2023 Assessment of risk o f venous thromboembolism [facility] Start: 02-24-2023 Bedrest [facility] Start: 02-24-2023 Elevation of head of bed [facility] Start: 02-24-2023 Taking patient vital signs [facility] Start: 02-24-2023 Wound care [facility] Start: 02-24-2023 [facility] Start: 02-24-2023 Catheterization of vein [facility] Start: 02-24-2023 Notification of physician [facility] Start: 02-24-2023 [facility] Start: 02-23-2023 Application of intermittent pneumatic compression device [facility] Start: 02-23-2023 Following clinical p athway protocol [facility] Start: 02-23-2023 Assessment of risk o f venous thromboembolism [facility] Start: 02-23-2023 Continuous pulse oximetry [facility] Start: 02-23-2023 Inhalation therapy procedure [facility] Start: 02-23-2023 Insertion of cathete r into peripheral vein [facility] Start: 02-23-2023 Measuring intake and output [facility] Start: 02-23-2023 Oxygen therapy [facility] Start: 02-23-2023 Providing care accor ding to standard [facility] Start: 02-23-2023 Referral to hose coupling joiner [facility] Start: 02-23-2023 Vital signs measurements [facility] Start: 02-23-2023 [facility] Start: 02-23-2023 Verification routine [facility] Start: 02-23-2023 Admission procedure [facility] Start: 02-23-2023 Hospital admission, emergency, from emergency room, medical nature [facility] Start: 02-23-2023 [facility] Start: 02-23-2023 Patient referral to dietitian [facility] Start: 02-22-2023 Thoracentesis needle /cath pleura w/imaging [facility] Start: 02-22-2023 [facility] Start: 02-22-2023 Vital signs measurements [facility] Start: 02-17-2023 Iv infusion therapy/prophylaxis /dx 1st to 1 hr [facility] Start: 01-20-2023 Iv infusion therapy/prophylaxis /dx 1st to 1 hr [facility] Start: 01-06-2023 [facility] Start: 01-05-2023 End: 01-05-2023 Patient encounter procedure [facility] Comment on above: Arrived Start: 01-04-2023 [facility] Start: 01-03-2023 Following clinical p athway protocol [facility] Start: 01-03-2023 Ambulation without limitation [facility] Start: 01-03-2023 Assessment of risk o f venous thromboembolism [facility] Start: 01-03-2023 Insertion of cathete r into peripheral vein [facility] Start: 01-03-2023 Measuring intake and output [facility] Start: 01-03-2023 Providing care accor ding to standard [facility] Start: 01-03-2023 [facility] Start: 01-03-2023 Verification routine [facility] Start: 01-03-2023 Admission procedure [facility] Start: 01-03-2023 Brain natriuretic pe ptide measurement [facility] Start: 01-01-2023 COVID-19 Vaccine ( season) COVID-19 Vaccine ( season) [facility] Start: 01-01-2023 Influenza vaccination Influenza Vacc ine (#1) [facility] Start: 12-30-2022 Venous catheter care management [facility] Start: 12-29-2022 Venous catheter care management [facility] Start: 12-09-2022 Iv infusion therapy/prophylaxis /dx 1st to 1 hr [facility] Start: 10-14-2022 Iv infusion therapy/prophylaxis /dx 1st to 1 hr THER/PROPH/DIAG IV INF [facility] Start: 09-11-2022 Patient referral [facility] Work Phone: Start: 08-25-2022 [facility] Start: 08-25-2022 Vital signs measurements [facility] Start: 08-19-2022 Iv infusion therapy/prophylaxis /dx 1st to 1 hr [facility] Start: 07-22-2022 Iv infusion therapy/prophylaxis /dx 1st to 1 hr [facility] Start: 07-03-2022 Venous catheter care management [facility] Start: 05-03-2022 ADVANCE DIRECTIVE DISCUSSION ADVANCE DIRECTIVE DISCUSSION [facility] Start: 05-03-2022 DEPRESSION ASSESSMENT DEPRESSION ASS ESSMENT [facility] Start: 04-03-2022 Iv infusion therapy/prophylaxis /dx 1st to 1 hr [facility] Start: 03-18-2022 End: 05-18-2022 C reactive protein [Mass/volume] in Serum or Plasma C-REACTIVE PROTEIN (CRP) Lab Routine History of ankle surgery Chronic pain of left ankle Wound dehiscence Expected: 03/18/2022, Expires: 05/18/2022 [facility] Work Phone: Comment on above: Expected: 03/18/2022 , Expires: 05/18/2022 Start: 03-18-2022 End: 05-18-2022 CBC W Auto Differential panel - Blood CBC + DIFF Lab Routine History of ankle surgery Wound dehiscence Expected: 03/18/2022, Expires: 05/18/2022 [facility] Work Phone: Comment on above: Expected: 03/18/2022 , Expires: 05/18/2022 Start: 03-18-2022 End: 05-18-2022 Erythrocyte sedimentation rate SED [facility] Lab Routine History of ankle surgery Chronic pain of left ankle Wound dehiscence Expected: 03/18/2022, Expires: 05/18/2022 [facility] Work Phone: Comment on above: Expected: 03/18/2022 , Expires: 05/18/2022 Start: 03-06-2022 Iv infusion therapy/prophylaxis /dx 1st to 1 hr THER/PROPH/DIAG IV INF [facility] Work Phone: Start: 02-06-2022 Iv infusion therapy/prophylaxis /dx 1st to 1 hr [facility] Work [facility]: Start: 11-04-2021 COVID-19 VACCINE (5 - Booster for Moderna series) COVID-19 VACCINE (5 - Booster for Moderna series) [facility] Start: 09-19-2021 Iv infusion therapy/prophylaxis /dx 1st to 1 hr [facility] Work [facility]: Start: 05-28-2021 Iv infusion therapy/prophylaxis /dx 1st to 1 hr [facility] Work Phone: Start: 05-03-2021 ADVANCE DIRECTIVE DISCUSSION ADVANCE DIRECTIVE DISCUSSION [facility] Start: 05-03-2021 DEPRESSION ASSESSMENT DEPRESSION ASS ESSMENT [facility] Start: 04-22-2020 DIABETES SCREEN DIABETES SCREEN [facility] Start: 04-06-2017 [facility] Start: 2001 BONE DENSITY BONE DENSITY [facility] Start: 1996 RSV Immunization age d 60 or older (1 - 1-dose 60+ series) RSV Immunization aged 60 or older (1 - 1-dose 60+ series) [facility] Start: 1986 Zoster Vaccines (1 of 2) Zoste r Vaccines (1 of 2) [facility] Start: 08-29-1955 SHINGRIX VACCINE (1 of 2) GOMEZ GRIX VACCINE (1 of 2) [facility] Start: 08-29-1955 Urine microalbumin profile DTA P,TDAP,TD (1 - Tdap) [facility] Start: 1948 Depression Screening Depression Scre ening [facility] Start: 1942 PNEUMOCOCCAL: 65+ (1 - PCV) PNEUMOCOCCAL: 65+ (1 - PCV) [facility] Start: 1936 Hepatitis B Vaccines (1 of 3 - 3-dose series) Hepatitis B Vaccines (1 of 3 - 3-dose series) [facility] Start: 1936 Lipid panel Lipid Panel [facility] Start: 1936 Medicare Advantage A nnual Wellness Visit (AWV) Medicare Advantage Annual Wellness Visit (AWV) [facility] Start: 1936 Screening for osteoporosis Bone Dens ity Scan [facility] Start: 1936 Thyroid stimulating hormone measurement TSH Level [facility] Anion gap in Serum o r Plasma [facility] Blood chemistry [facility] BUN/Creatinine ratio [facility] Calcium [Mass/volume ] in Serum or Plasma [facility] Cancer Ag 125 [Units/volume] in Serum or Plasma [facility] Cancer Ag 15-3 [Pres ence] in Serum or Plasma [facility] Cancer Ag 15-3 [Pres ence] in Serum or Plasma [facility] Cancer Ag 27-29 [Pre sence] in Serum or Plasma [facility] Carbon dioxide, tota l [Moles/volume] in Central venous blood [facility] Carcinoembryonic Ag [Mass/volume] in Serum or Plasma [facility] Carcinoembryonic Ag [Mass/volume] in Serum or Plasma [facility] Cardioversion [facility] CBC W Auto Different ial panel - Blood [facility] CBC W Auto Different ial panel - Blood [facility] CBC W Auto Different ial panel - Blood [facility] Cell count and Differential panel - Body fluid [facility] Creatinine [Mass/vol ume] in Serum or Plasma [facility] CT Chest W contrast IV [facility] Erythrocyte mean corpuscular volume determination [facility] Exercise tolerance test [facility] Glucose [Mass/volume ] in Serum or Plasma [facility] Hematocrit [Volume Fraction] of Blood [facility] Hemoglobin [Mass/vol ume] in Blood [facility] In-vitro immunologic test [facility] Work Phone: In-vitro immunologic test [facility] Lactate dehydrogenas e [Enzymatic activity/volume] in Body fluid by Pyruvate to lactate reaction [facility] Lactate dehydrogenas e measurement [facility] Lactate dehydrogenas e measurement [facility] Lactic acid measurement [facility] Leukocytes [#/volume ] in Blood [facility] Mean corpuscular hemoglobin concentration determination [facility] Mean corpuscular hemoglobin determination [facility] Measurement of renal function [facility] Measurement of respi ratory function [facility] Microbial culture, b yun fluid [facility] Microscopic observat ion [Identifier] in Body fluid by Cyto stain [facility] Mycobacterium tuberc ulosis tuberculin stimulated gamma interferon [Presence] in Blood [facility] Work Phone: Mycobacterium tuberc ulosis tuberculin stimulated gamma interferon [Presence] in Blood [facility] End: 04-17-2023 Non-invasive physiologic study extremity 3 levls US ARTERIAL PVR LOWER Radiology Routine Wound dehiscence Decreased pedal pulses 1 Occurrences starting 03/18/2022 until 04/17/2023 [facility] Work Phone: Comment on above: 1 Occurrences starti ng 03/18/2022 until 04/17/2023 Partial thromboplast in time, activated [facility] Patient Education [facility] Work Phone: Patient referral [facility] Work Phone: Platelets [#/volume] in Blood [facility] Potassium measurement [facility] Protein [Mass/volume ] in Body fluid [facility] Protein [Mass/volume ] in Serum or Plasma [facility] PT Unspecified body region [facility] Radionuclide imaging of perfusion of myocardium under exercise stress [facility] Work Phone: Red blood cell count [facility] Red cell distributio n width determination [facility] Serum chloride measurement [facility] Sodium measurement [facility] Ultrasonic guidance for thoracentesis [facility] Urea nitrogen [Mass/volume] in Serum or Plasma [facility] US Carotid arteries [facility] Work Phone: [facility] Work Phone: [facility] XR Chest PA and Lateral [facility] Immunizations Immunization Date Immunization Notes Care Provider Adriano carrillo 01-30-2022 influenza virus vaccine, unspecified formulation Ladi Sharp [facility] 01-23-[address] Teagan Hall Work Phone: [facility] 07-19-2017 tetanus toxoid, redu ching diphtheria toxoid, and acellular pertussis vaccine, adsorbed Dr. Teagan Hall Work Phone: [facility] 01-09-[address] Teagan Hall Work Phone: [facility] 01-10-[address] Teagan Hall Work Phone: [facility] Work Phone: 01-10-2007 pneumococcal vaccine , unspecified formulation Dr. Teagan Hall Work Phone: [facility] Payers Date Payer Category Payer Self-pay [id number] 2022 Unknown [id number] 2021 Medicare [id number] 2012 Medicare [id number] 2012 Private Health Insurance [facility] [id number] Unknown [id number] Unknown [id number] 2.16.8 40.1.334059.3.579.2.462 Unknown [id number] 2.16.8 40.1.218083.3.579.2.462 Unknown [id number] 2.16.8 40.1.123113.3.579.2.462 Unknown [id number] 2.16.8 40.1.583537.3.579.2.462 Unknown [id number] 2.16.8 40.1.217452.3.579.2.462 Unknown [id number] 2.16.8 40.1.383362.3.579.2.462 Unknown [id number] 2.16.8 40.1.629529.3.579.2.462 Unknown [id number] 2.16.8 40.1.165379.3.579.2.462 Unknown [id number] 2.16.8 40.1.887733.3.579.2.462 Unknown [id number] 2.16.8 40.1.056641.3.579.2.462 Unknown [id number] 2.16.8 40.1.203693.3.579.2.462 Unknown [id number] 2.16.8 40.1.977711.3.579.2.462 Unknown [id number] 2.16.8 40.1.351123.3.579.2.462 Unknown [id number] 2.16.8 40.1.366646.3.579.2.462 Unknown [id number] 2.16.8 40.1.331366.3.579.2.462 Unknown [id number] 2.16.8 40.1.511541.3.579.2.462 Unknown [id number] 2.16.8 40.1.230998.3.579.2.462 Unknown [id number] 2.16.8 40.1.421116.3.579.2.462 Unknown [id number] 2.16.8 40.1.349521.3.579.2.462 Unknown [id number] 2.16.8 40.1.387819.3.579.2.462 Unknown [id number] 2.16.8 40.1.388322.3.579.2.462 Unknown [id number] 2.16.8 40.1.681928.3.579.2.462 Unknown [id number] 2.16.8 40.1.605644.3.579.2.462 Unknown [id number] 2.16.8 40.1.607875.3.579.2.462 Unknown [id number] 2.16.8 40.1.495717.3.579.2.462 Unknown [id number] 2.16.8 40.1.455172.3.579.2.462 Unknown [id number] 2.16.8 40.1.000505.3.579.2.462 Unknown [id number] 2.16.8 40.1.101299.3.579.2.462 Unknown [id number] 2.16.8 40.1.526043.3.579.2.462 Unknown [id number] 2.16.8 40.1.785135.3.579.2.462 Unknown [id number] 2.16.8 40.1.245853.3.579.2.462 Unknown [id number] 2.16.8 40.1.255361.3.579.2.462 Unknown [id number] 2.16.8 40.1.848927.3.579.2.462 Unknown [id number] 2.16.8 40.1.033691.3.579.2.462 Unknown [id number] 2.16.8 40.1.501998.3.579.2.462 Unknown [id number] 2.16.8 40.1.742105.3.579.2.462 Unknown [id number] 2.16.8 40.1.399243.3.579.2.462 Unknown [id number] 2.16.8 40.1.781413.3.579.2.462 Unknown [id number] 2.16.8 40.1.381264.3.579.2.462 Unknown [id number] 2.16.8 40.1.755054.3.579.2.462 Unknown [id number] 2.16.8 40.1.681216.3.579.2.462 Social History Date Type Detail Facility Start: 05-12-2021 End: 07-16-2023 Tobacco smoking status NHIS Unknown if ever smoked [facility] Start: 09-23-2013 None [facility] Start: 05-15-2020 Alone [facility] Start: 04-18-2020 Non-smoker [facility] Start: 1935 Sex Assigned At Female W [facility] Start: 03-18-2022 End: 12-06-2024 Tobacco smoking status NHIS Never smoked tobacco [facility] Start: 03-18-2022 End: 09-16-2022 Tobacco use and exposure Smokeless tobacco non-user [facility] Start: 03-18-2022 End: 08-17-2022 Alcohol intake Current non-drinker of alcohol (finding) [facility] Start: 1935 Sex Assigned At Not on file [facility] Start: 03-08-2022 End: 09-22-2022 Exposure to SARS-CoV-2 (event) Not sure [facility] Start: 09-23-2022 End: 08-03-2023 Alcohol intake Lifetime non-drinker (finding) [facility] Start: 09-22-2022 History SDOH IPV Fear [address] [facility] Start: 09-22-2022 End: 08-03-2023 History of Social function [facility] Start: 09-22-2022 End: 08-03-2023 Humiliation, Afraid, Rape, and Kick questionnaire [HARK] [facility] [place] Within the last year , have you been afraid of your partner or ex-partner? No [facility] Start: 07-18-2024 End: 08-01-2024 Sex Female (finding) [facility] Medical Equipment Procedure Code [...] Start: 10-28-2018 Plate Lcp Stainl ess Steel [id number] .7mm Bone 1/3 Tubular 10 Hole Collar - [id number] Start: 04-20-2017 Screw Dcp Lc-Dcp 3.5mm Stainless Steel 55mm Bone Self Tapping Hexagonal - [id number] Start: 04-20-2017 Cement Simplex Gentamicin Bone High Viscosity 20ml Sterile 40gm - [id number] Start: 05-18-2022 ([id number]) ()[id number] [id number] 1)[id number] FDA Start: 02-24-2023 ([id number]) ()[id number] 887(2 1)[id number] FDA Start: 02-24-2023 ([id number]) ()[id number] [id number] FDA Start: 02-24-2023 Goals Date Patient Goal Desired Activity /State Functional Status Date Assessment Result Facility 12-06-2024 Functional status With Assist of 1 [facility] Work Phone: 12-06-2024 Functional status Chair [facility] Work Phone: 12-04-2024 Functional status Chair [facility] Work Phone: 02-25-2023 Functional status Bedrest [facility] Work Phone: 02-24-2023 Functional status Ambulates [facility] Work Phone: 01-04-2023 Functional status Ambulates [facility] Work Phone: Mental Status Date Assessment Result Facility 12-05-2024 Cognitive function Voice/Name [facility] Work Phone: 12-04-2024 Cognitive function Voice/Name [facility] Work Phone: 08-24-2023 Cognitive function Level Of Cons ciousness Awake;Alert;Appropriate [facility] Work Phone: 07-19-2023 Cognitive function Level Of Cons ciousness Awake;Alert;Appropriate;Follo ws Commands [facility] Work Phone: 06-23-2023 Cognitive function Awake;Alert;A ppropriate;Follo ws Commands [facility] Work Phone: 04-08-2023 Cognitive function Awake;Alert;A ppropriate;Follo ws Commands [facility] Work Phone: 03-17-2023 Cognitive function Voice/Name [facility] Work Phone: 02-24-2023 Cognitive function Voice/Name [facility] Work Phone: 02-23-2023 Cognitive function Awake;Alert;A ppropriate;Follo ws Commands;Responds to vocal stimuli [facility] Work Phone: 02-22-2023 Cognitive function Awake;Alert;Appropriat e [facility] Work Phone: 01-27-2023 Cognitive function Voice/Name [facility] Work Phone: 01-20-2023 Cognitive function Awake;Alert;Appropriat e [facility] Work Phone: 01-04-2023 Cognitive function Voice/Name [facility] Work Phone: 01-03-2023 Cognitive function Voice/Name [facility] Work Phone: 12-09-2022 Cognitive function Voice/Name [facility] Work Phone: 11-11-2022 Cognitive function Voice/Name [facility] Work Phone: 10-14-2022 Cognitive function Voice/Name [facility] Work Phone: 09-16-2022 Cognitive function Voice/Name [facility] Work Phone: 08-25-2022 Cognitive function Level Of Cons ciousness Awake;Alert;Appropriate;Follo [facility] Work Phone: 08-19-2022 Cognitive function Voice/Name [facility] Work Phone: 07-22-2022 Cognitive function Awake;Alert;A ppropriate;Follo [facility] Work Phone: 06-24-2022 Cognitive function Voice/Name [facility] Work Phone: 03-06-2022 Cognitive function Level Of Cons ciousness Awake;Alert;Appropriate[facility] Work Phone: 02-06-2022 Cognitive function Voice/Name [facility] Work Phone: 01-09-2022 Cognitive function Voice/Name [facility] Work Phone: 12-12-2021 Cognitive function Voice/Name [facility] Work Phone: 10-17-2021 Cognitive function Level Of Cons ciousness Awake;Alert [facility] Work Phone: 09-19-2021 Cognitive function Awake;Alert;A ppropriate;Follo [facility] Work Phone: 08-20-2021 Cognitive function Awake;Alert;Appropriat e [facility] Work Phone: 07-23-2021 Cognitive function Awake;Alert;A ppropriate;Follo [facility] Work Phone: 06-25-2021 Cognitive function Voice/Name [facility] Work Phone: 05-28-2021 Cognitive function Awake;Alert;A ppropriate;Follo [facility] Work Phone: 04-30-2021 Cognitive function Voice/Name [facility] Work Phone: 04-02-2021 Cognitive function Voice/Name [facility] Work Phone: 04-17-2019 Cognitive function Appropriate;[facility] Work Phone: Clinical Notes 04-12-2020 to 12-06-2024 Note Date & Type Note Facility 12-06-2024 Hospital Discharg e instructions Additional Instructions Date of Discharge: 12/06/24 [facility] Work Phone: 12-06-2024 Consult note Note Date/Time December 06, 2024 11:26am [facility] Medical Records Department [address] [place] [address] Counseling Note - Pharmacy 12/06/241124 MR#: [id number] Acct: [id number] Name: ROBERTO FERGUSON Rep #:[id number] 6 : 1935 89 From: Tracy Peña PCP: Dr. Linda Mao MD Status :DIS IN Y Location: [place] [address] Pharmacy [facility] Counseling Pharmacy Service has performed discharge medication [...] Signature (if applicable): Date CC: ~ Signed [facility] Work Phone: 1(818) 228-601608-06-2025 Consult note [facility] Medical Records Department [address] [place] [address] Counseling Note - Pharmacy 12/06/24 1125 MR#: [id number] Acct: [id number] Name: ROBERTO FERGUSON Rep #:[id number] 6 : 1935 89 From: Tracy Peña PCP: Dr. Linda Mao MD Status :DIS IN Y Location: [place] [address] Pharmacy [facility] Counseling Pharmacy Service has performed discharge medication [...] Signature (if applicable): Date CC: ~ Signed [facility]08-06-2025 Discharge summary Author Ajith Quiñones [facility] Note Date/Time December 06, 2024 8:2 9am [facility] Medical Records Department [address] [place] [address] Discharge Summary 12/06/24 0821 MR#: [id number] Acct: [id number] Name: ROBERTO FERGUSON Rep #:[id number] 9 : 1935 89 From: Ajith Quiñones MD PCP: Dr. Linda Mao MD Status :ADM IN Location: [place] [address]- 1 Providers Date of Admission: 12/02/24 Date of [...] % (Auto) 50.3, Lymph % (Auto) 26.8, Milam % (Auto) 19.0 H, Eos % (Auto) [...] chest x-ray or CT chest. Reading Location: [facility] D/C Instructions Discharge Activity: Return to Normal [...] Up: Teagan Hall MD [Med Staff - Rehab Trainer] - Emeterio Lopez MD [Med Staff - Active Staff] - Within 2 Weeks (Cervical DJD) Elias Arevalo MD [Med Staff - Active Staff] - Within 1 Month Linda Mao MD [Primary Care Provider] - Within 1 Week Disposition Disposition (needs filled in before D/C Order can be placed): Home, Self Care Charges/Coding Visit Charges Inpatient E&M: 92508 Disch Hosp >30min 12/06/24 0829 <Electronically signed by Ajith Quiñones MD> Cosigner Signature (if applicable): CC: Dr. Linda Mao MD; Dr. Ajith Quiñones MD~ Signed [facility] Work Phone: 1(268) 771-963208-06-2025 Discharge summary Author Ajith Quiñones [facility] Note Date/Time December 06, 2024 8:2 9am [facility] Medical Records Department [address] [place] [address] Discharge Summary 12/06/24 0821 MR#: [id number] Acct: [id number] Name: ROBERTO FERGUSON Rep #:[id number] 9 : 1935 89 From: Ajith Quiñones MD PCP: Dr. Linda Mao MD Status :ADM IN Location: [place] [address] Providers Date of Admission: 12/02/24 Date of [...] % (Auto) 50.3, Lymph % (Auto) 26.8, Milam % (Auto) 19.0 H, Eos % (Auto) [...] chest x-ray or CT chest. Reading Location: [facility] D/ Instructions Discharge Activity: Return to Normal Activity [...] Up: Teagan Hall MD [Med Staff - Rehab Trainer] - Emeterio Lopez MD [Med Staff - Active Staff] - Within 2 Weeks (Cervical DJD) Elias Arevalo MD [Med Staff - Active Staff] - Within 1 Month Linda Mao MD [Primary Care Provider] - Within 1 Week Disposition Disposition (needs filled in before D/C Order can be placed): Home, Self Care Charges/Coding Visit Charges Inpatient E&M: 48063 Disch Hosp >30min 12/06/24 0829 <Electronically signed by Ajith Quiñones MD> Cosigner Signature (if applicable): CC: Dr. Linda Mao MD; Dr. Ajith Quiñones MD~ Signed [facility] Work Phone: 1(260) 368-799108-06-2025 Progress note Author Elias Arevalo [facility] Note Date/Time December 06, 2024 7:4 6am [facility] Medical Records Department [address] [place] [address] Progress Note - Cardiology 12/06/24 0745 MR#: [id number] Acct: [id number] Name: ROBERTO FERGUSON Rep #:[id number] 3 : 1935 89 From: Elias Arevalo MD PCP: Dr. Linda Mao MD Status :ADM IN Location: [place] [address] Subjective Subjective Patient seen and evaluated. Still [...] % (Auto) 50.3, Lymph % (Auto) 26.8, Milam % (Auto) 19.0 H, Eos % (Auto) [...] Neut % (Auto)50.3, Lymph % (Auto) 26.8, Milam % (Auto) 19.0 H, Eos % (Auto) [...] chest x-ray or CT chest. Reading Location: [facility] Physical Exam Const no apparent distress General [...] Cosigner Signature (if applicable): CC: ~ Signed [facility] Work Phone: 1(264) 168-675808-06-2025 Progress note Author Elias Arevalo [facility] Note Date/Time December 06, 2024 7:4 6am [facility] Medical Records Department [address] [place] [address] Progress Note - Cardiology 12/06/24 0745 MR#: [id number] Acct: [id number] Name: ROBERTO FERGUSON Rep #:[id number] 3 : 1935 89 From: Elias Arevalo MD PCP: Dr. Linda Mao MD Status :ADM IN Location: [place] [address] Subjective Subjective Patient seen and evaluated. Still [...] % (Auto) 50.3, Lymph % (Auto) 26.8, Milam % (Auto) 19.0 H, Eos % (Auto) [...] Neut % (Auto)50.3, Lymph % (Auto) 26.8, Milam % (Auto) 19.0 H, Eos % (Auto) [...] chest x-ray or CT chest. Reading Location: [facility] Physical Exam Const no apparent distress General [...] Cosigner Signature (if applicable): CC: ~ Signed [facility] Work Phone: 1(143) 624-492208-06-2025 Discharge summary [facility] Medical Records Department [address] [place] [address] Discharge Summary 12/06/24 0821 MR#: [id number] Acct: [id number] Name: ROBERTO FERGUSON Rep #:[id number] 9 : 1935 89 From: Ajith Quiñones MD PCP: Dr. Linda Mao MD Status :ADM [facility] Providers Date of Admission: 12/02/24 Date of [...] % (Auto) 50.3, Lymph % (Auto) 26.8, Milam % (Auto) 19.0 H, Eos % (Auto) [...] with chest x-rayor CT chest. Reading Location: [facility] D/C Instructions Discharge Activity: Return to Normal [...] Up: Teagan Hall MD [Med Staff - Rehab Trainer] - Emeterio Lopez MD [Med Staff - Active Staff] - Within 2 Weeks (Cervical DJD) Elias Arevalo MD [Med Staff - Active Staff] - Within 1 Month Linda Mao MD [Primary Care Provider] - Within 1 Week Disposition Disposition (needs filled in before D/C Order can be placed): Home, Self Care Charges/Coding Visit Charges Inpatient E&M: 98227 Disch Hosp >30min 12/06/24 0829 Cosigner Signature (if applicable): CC: Dr. Linda Mao MD; Dr. Ajith Quiñones MD~ Signed [facility]08-06-2025 [facility]08-06-2025 Progress note [facility] Medical Records Department [address] [place] [address] Progress Note - Cardiology 12/06/24 0745 MR#: [id number] Acct: [id number] Name: ROBERTO FERGUSON Rep #:[id number] 3 : 1935 89 From: Elias Arevalo MD PCP: Dr. Linda Mao MD Status :ADM IN Location: [place] [address] Subjective Subjective Patient seen and evaluated. Still [...] % (Auto) 50.3, Lymph % (Auto) 26.8, Milam % (Auto) 19.0 H, Eos % (Auto) [...] Neut % (Auto)50.3, Lymph % (Auto) 26.8, Milam % (Auto) 19.0 H, Eos % (Auto) 2.7, Baso % (Auto)0.6, Absolute Neuts (auto) 1.7 L, Nucleated RBC % 0, Krgitp616, Potassium 4.2, Chloride 104, Carbon Dioxide 17.8 [...] with chest x-rayor CT chest. Reading Location: [facility] Physical Exam Const no apparent distress General [...] is noted to be functioning well. 12/06/24 4446 Cosigner Signature (if applicable): CC: ~ Signed [facility]08-05-2025 Progress note Author Ajith Quiñones [facility] Note Date/Time December 05, 2024 9:2 9am [facility] Medical Records Department [address] [facility] [place] [address] Progress Note - Hospitalist 12/05/24 0921 MR#: [id number] Acct: [id number] Name: ROBERTO FERGUSON Rep #:[id number] 4 : 1935 89 From: Ajith Quiñones MD PCP: Dr. Linda Mao MD Status :ADM IN Location: [place] [address] Reason for Visit Chief Complaint: Dizziness/lightheadedness with [...] 36 Minutes Charges/Coding Visit Charges Inpatient E&M: 04392 Subs Hosp L2 12/05/2429 <Electronically signed by Ajith Quiñones MD> Cosigner Signature (if applicable): CC: ~ Signed [facility] Work Phone: 1(909) 855-411008-05-2025 [facility] Date/Time December 05, 2024 9:2 9am [facility] Medical Records Department [address] [facility] [place] [address] Progress Note - Hospitalist 12/05/24920 MR#: [id number] Acct: [id number] Name: ROBERTO FERGUSON Rep #:[id number] 4 : 1935 89 From: Ajith Quiñones MD PCP: Dr. Linda Mao MD Status :ADM IN Location: [place] [address] Reason for Visit Chief Complaint: Dizziness/lightheadedness with [...] 36 Minutes Charges/Coding Visit Charges Inpatient E&M: 03765 Subs Hosp L2 12/05/24 0929 <Electronically signed by Ajith Quiñones MD> Cosigner Signature (if applicable): CC: ~ Signed [facility] Work Phone: 1(449) 383-553208-05-2025 Progress note Author Elias Arevalo [facility] Note Date/Time December 05, 2024 7:5 6am [facility] Medical Records Department [address] [place] [address] Progress Note - Cardiology 12/05/24 0753 MR#: [id number] Acct: [id number] Name: ROBERTO FERGUSON Rep #:[id number] 9 : 1935 89 From: Elias Arevalo MD PCP: Dr. Linda Mao MD Status :ADM IN Location: [place] [address] Subjective Subjective Patient seen and evaluated Objective [...] Cosigner Signature (if applicable): CC: ~ Signed [facility] Work Phone: 1(938) 784-196108-05-2025 Progress note Author Elias Arevalo [facility] Note Date/Time December 05, 2024 7:5 6am [facility] Medical Records Department [address] [place] [address] Progress Note - Cardiology 12/05/24 0753 MR#: [id number] Acct: [id number] Name: ROBERTO FERGUSON Rep #:[id number] 9 : 1935 89 From: Elias Arevalo MD PCP: Dr. Linda Mao MD Status :ADM IN Location: [place] [address] Subjective Subjective Patient seen and evaluated Objective [...] Ordering Physician: Marga Butcher Referring Physician: Linda aMo Performed By: Gianna Londono RDCS, RVT Physical Exam Const alert, oriented [...] well. 12/05/24 0756 <Electronically signed by Elias Arevlao MD> Cosigner Signature (if applicable): CC: ~ Signed [facility] Work Phone: 1(126) 175-122608-05-2025 Progress note [facility] Medical Records Department [address] [place] [address] Progress Note - Hospitalist 12/05/24 0921 MR#: [id number] Acct: [id number] Name: ROBERTO FERGUSON Rep #:[id number] 4 : 1935 89 From: Ajith Quiñones MD PCP: Dr. iLnda Mao MD Status :ADM IN Location: [place] [address] Reason for Visit Chief Complaint: Dizziness/lightheadedness with [...] Intake and Output for Last 24 Hours 0812/04/24 12/05/24 23:59 23:59 23:59 Intake Total 850 [...] 36 Minutes Charges/Coding Visit Charges Inpatient E&M: 01095 Subs Hosp L2 12/05/24 0929 Cosigner Signature (if applicable): CC: ~ Signed [facility]08-05-2025 Progress note [facility] Medical Records Department [address] [place] [address] Progress Note - Cardiology 12/05/24 0753 MR#: [id number] Acct: [id number] Name: ROBERTO FERGUSON Rep #:[id number] 9 : 1935 89 From: Elias Arevalo MD PCP: Dr. Linda Mao MD Status :ADM IN Location: [place] [address]- Subjective Subjective Patient seen and evaluated Objective [...] Cosigner Signature (if applicable): CC: ~ Signed [facility]08-04-2025 Progress note Author Sean Thornton [facility] Note Date/Time December 04, 2024 3:3 6pm [facility] Medical Records Department [address] [place] [address] Progress Note - Hospitalist 12/04/24 1508 MR#: [id number] Acct: [id number] Name: ROBERTO FERGUSON Rep #:[id number] 9 : 1935 89 From: Sean ramírez DO PCP: Dr. Linda Mao MD Status :ADM IN Location: [place] [address] Reason for Visit Chief Complaint: Dizziness/lightheadedness with [...] (Auto) 44.3 L, Lymph % (Auto) 35.9, Milam % (Auto) 16.1 H, Eos % (Auto) 2.8, Baso % (Auto) 0.6, Absolute Neuts (auto) 1.4 L, Absolute Lymphs (auto) 1.16, Nucleated RBC % 0, Sodium 133, Potassium 4.2, Chloride 102, Carbon Dioxide 19.7 L, Anion Gap 12, BUN 23 H, Creatinine 1.14, Estim Creat Clear Calc 27.31 L, Est GFR (MDRD) Non-Af 46 L, BUN/CreatinineRatio 19.9, Glucose 88, Calcium 8.3 Micro: Microbiology 08/01/25 10:25 Urine, Clean Catch Urine Culture - [...] is an 89-year-old female who presented to [facility] ED on 11/30/2024 with dizziness/lightheadedness with gait [...] 35 minutes. Charges/Coding Visit Charges Inpatient E&M: 79400 Subs Hosp L2 12/04/24 1536 <Electronically signed by Sean Thornton DO> Cosigner Signature (if applicable): CC: ~ Signed [facility] Work Phone: 1(766) 946-937808-04-2025 Progress note Author Sean Thornton [facility] Note Date/Time December 04, 2024 3:3 6pm [facility] Medical Records Department [address] [place] [address] Progress Note - Hospitalist 12/04/24 1508 MR#: [id number] Acct: [id number] Name: KIKA FERGUSONNA WENDY Rep #:[id number] 9 : 1935 89 From: Sean Josafat ramírez DO PCP: Dr. Linda Mao MD Status :ADM IN Location: [place] [address] Reason for Visit Chief Complaint: Dizziness/lightheadedness with [...] Pacemaker was interrogated today and per Dr. Arevaol, it is functioning well with no issues. [...] (Auto) 44.3 L, Lymph % (Auto) 35.9, Milam % (Auto) 16.1 H, Eos % (Auto) [...] is an 89-year-old female who presented to [facility] ED on 11/30/2024 with dizziness/lightheadedness with gait [...] 35 minutes. Charges/Coding Visit Charges Inpatient E&M: 57491 Subs Hosp L2 12/04/24 1599 <Electronically signed by Sean Thornton DO> Cosigner Signature (if applicable): CC: ~ [facility]igned [facility] Work Phone: 1(743) 311-124908-04-2025 Procedure [facility] [address] [place] [address] Pacemaker Check Date of Service: 12/04/24 164 MR#: [id number] Acct: [id number] Name: ROBERTO FERGUSONAN Rep #: [id number] : 1935 From: Iza krishnan Age/Sex: 89/F Location: [facility] Status: Signed Billing Codes PM Device Codes: 64633 PM Dev Prog Eval, Dual Assessment and Plan Assessment and Plan (1) Pacemaker: Status: Acute (2) Nonischemic cardiomyopathy: Status: Acute (3) Complete heart block: Status: Acute (4) Presence of permanent cardiac pacemaker: Status: Chronic (5) Atrial fibrillation: Status: Acute 12/04/241646 > Date _ Iza Steward Signature: Date (if applicable) CC: ~ [facility]08-04-2025 Progress note [facility] Medical Records Department [address] [place] [address] Progress Note - Hospitalist 12/04/24 1508 MR#: [id number] Acct: [id number] Name: ROBERTO FERGUSON Rep #:[id number] : 1935 89 From: Sean ramírez DO PCP: Dr. Linda Mao MD Status :ADM IN Location: [place] [address] Reason for Visit Chief Complaint: Dizziness/lightheadedness with [...] (Auto) 44.3 L, Lymph % (Auto) 35.9, [place] % (Auto) 16.1 H, Eos % (Auto) [...] is an 89-year-old female who presented to [facility] ED on 11/30/2024 with dizziness/lightheadedness with gait [...] 35 minutes. Charges/Coding Visit Charges Inpatient E&M: 23759 Subs Hosp L2 12/04/24 1536 Cosigner Signature (if applicable): CC: ~ [facility]igned [facility]08-04-2025 Progress note Author Elias Arevalo [facility] Note Date/Time December 04, 2024 11: 08am [facility] Medical Records Department [address] [place] [address] Progress Note - Cardiology 12/04/24 1058 MR#: [id number] Acct: [id number] Name: ROBERTO FERGUSON #:[id number] : 1935 89 From: Elias Arevalo MD PCP: Dr. Linda Mao MD Status :ADM IN Location: [place] [address] Subjective Subjective Patient seen and evaluated. Objective [...] (Auto) 44.3 L, Lymph % (Auto) 35.9, Milam % (Auto) 16.1 H, Eos % (Auto) [...] % (Auto)44.3 L, Lymph % (Auto) 35.9, [place] % (Auto) 16.1 H, Eos % (Auto) [...] Cosigner Signature (if applicable): CC: ~ [facility]igned [facility] Work Phone: 1(240) 802-659008-04-2025 Progress note Author Elias Arevalo [facility] Note Date/Time December 04, 2024 11: 08am [facility] Medical Records Department [address] [place] [address] Progress Note - Cardiology 12/04/24 1058 MR#: [id number] Acct: [id number] Name: ROBERTO FERGUSON Rep #:[id number] : 1935 89 From: Elias Arevalo MD PCP: Dr. Linda Mao MD Status :ADM IN Location: [place] [address]- Subjective Subjective Patient seen and evaluated. Objective [...] (Auto) 44.3 L, Lymph % (Auto) 35.9, Milam % (Auto) 16.1 H, Eos % (Auto) [...] % (Auto)44.3 L, Lymph % (Auto) 35.9, Mil[place] % (Auto) 16.1 H, Eos % (Auto) [...] Cosigner Signature (if applicable): CC: ~ [facility]igned [facility] Work Phone: 1([phone]) 239-892408-04-2025 Progress note [facility] Medical Records Department [address] [place] [address] Progress Note - Cardiology 12/04/24 1058 MR#: [id number] Acct: [id number] Name: ROBERTO FERGUSON Rep #:[id number] : 1935 89 From: Elias Arevalo MD PCP: Dr. Linda Mao MD Status :ADM IN Location: [place] [address]- 1 Subjective Subjective Patient seen and evaluated. Objective [...] (Auto) 44.3 L, Lymph % (Auto) 35.9, Milam % (Auto) 16.1 H, Eos % (Auto) [...] % (Auto)44.3 L, Lymph % (Auto) 35.9, [place] % (Auto) 16.1 H, Eos % (Auto) [...] Cosigner Signature (if applicable): CC: ~ [facility]08-04-2025 Consult note Author Elias Arevalo [facility] Note Date/Time December 04, 2024 6:4 7am [facility] Medical Records Department [address] [place] [address] Consultation - Cardiology 12/03/24 1225 MR#: [id number] Acct: [id number] Name: ROBERTO FERGUSON Rep #:[id number] : 1935 89 From: Elias Arevalo MD PCP: Dr. Linda Mao MD Status :ADM IN Location: [place] [address] Documented by User: Dr. Savi Patel MD [...] dizziness and a fall She presented to [facility] ED on 11/30/2024 with dizziness/lightheadedness with gait [...] very unsteady using a walker to walk. [facility] Medical History (Updated 12/03/24 @ 15:[address] Savi Patel MD) Anxiety Depression Hypothyroidism Non-smoker Atrial fibrillation Congestive heart failure (CHF) Pacemaker Myocardial infarct Shingles Atrial tachycardia Presence of permanent cardiac pacemaker CKD (chronic kidney disease) stage 3, GFR 30-59 ml/min Non-rheumatic mitral regurgitation Mitral valve insufficiency Rheumatoid arthritis STEMI (ST elevation myocardial infarction) Atherosclerosis of coronary artery of [place] heart without angina pectoris History of coronary [...] % (Auto) 47.2, Lymph % (Auto) 33.8, [place] % (Auto) 15.7 H, Eos % (Auto) [...] Neut % (Auto)47.2, Lymph % (Auto) 33.8, [place] % (Auto) 15.7 H, Eos % (Auto) [...] HPI Consult Data Date of Consult: 12/04/24 [facility] Medical History (Updated 12/03/24 @ 15:[address] Savi Patel MD) Anxiety Depression Hypothyroidism Non-smoker Atrial fibrillation Congestive heart failure (CHF) Pacemaker Myocardial infarct Shingles Atrial tachycardia Presence of permanent cardiac pacemaker CKD (chronic kidney disease) stage 3, GFR 30-59 ml/min Non-rheumatic mitral regurgitation Mitral valve insufficiency Rheumatoid arthritis STEMI (ST elevation myocardial infarction) Atherosclerosis of coronary artery of [place] heart without angina pectoris History of coronary [...] applicable): CC: Dr. Linda Mao MD~ [facility]igned [facility] Work Phone: 1(920) 496-856208-04-2025 Consult note [facility] Medical Records Department [address] [place] [address] Consultation - Cardiology 12/03/24 1225 MR#: [id number] Acct: [id number] Name: ROBERTO FERGUSON Rep #:[id number] : 1935 89 From: Elias Arevalo MD PCP: Dr. Linda Mao MD Status :ADM IN Location: [place] [address] Documented by User: Dr. Savi Patel MD [...] dizziness and a fall She presented to [facility] ED on 11/30/2024 with dizziness/lightheadedness with gait [...] very unsteady using a walker to walk. [facility] Medical History (Updated 12/03/24 @ 15:[address] Savi Patel MD) Anxiety Depression Hypothyroidism Non-smoker Atrial fibrillation Congestive heart failure (CHF) Pacemaker Myocardial infarct Shingles Atrial tachycardia Presence of permanent cardiac pacemaker CKD (chronic kidney disease) stage 3, GFR 30-59 ml/min Non-rheumatic mitral regurgitation Mitral valve insufficiency Rheumatoid arthritis STEMI (ST elevation myocardial infarction) Atherosclerosis of coronary artery of [place] heart without angina pectoris History of coronary [...] % (Auto) 47.2, Lymph % (Auto) 33.8, [place] % (Auto) 15.7 H, Eos % (Auto) [...] Neut % (Auto)47.2, Lymph % (Auto) 33.8, [place] % (Auto) 15.7 H, Eos % (Auto) 2.3, Baso % (Auto)0.7, Absolute Neuts (auto) 1.4 L, Nucleated RBC % 0, [id number], Potassium 4.0, Chloride 106, Carbon Dioxide 21.0, [...] HPI Consult Data Date of Consult: 12/04/24 [facility] Medical History (Updated 12/03/24 @ 15:[address] Savi Patel MD) Anxiety Depression Hypothyroidism Non-smoker Atrial fibrillation Congestive heart failure (CHF) Pacemaker Myocardial infarct Shingles Atrial tachycardia Presence of permanent cardiac pacemaker CKD (chronic kidney disease) stage 3, GFR 30-59 ml/min Non-rheumatic mitral regurgitation Mitral valve insufficiency Rheumatoid arthritis STEMI (ST elevation myocardial infarction) Atherosclerosis of coronary artery of [place] heart without angina pectoris History of coronary [...] applicable): CC: Dr. Linda Mao MD~ [facility]08-03-2025 Progress note Author Marga Butcher [facility] Note Date/Time December 03, 2024 10: 51am [facility] Medical Records Department [address] [place] [address] Progress Note - Hospitalist 12/03/24 1042 MR#: [id number] Acct: [id number] Name: ROBERTO FERGUSON Rep #:[id number] : 1935 89 From: Marga Butcher MD PCP: Dr. Linda Mao MD Status :ADM IN Location: [place] [address] Reason for Visit Chief Complaint: Dizziness/lightheadedness with [...] % (Auto) 47.2, Lymph % (Auto) 33.8, Mil[place] % (Auto) 15.7 H, Eos % (Auto) [...] home ? Admit under observation status to [facility]. PT/OT/case management consulted. Unclear etiology but symptoms [...] had an event previous or a silent NM sometime within the last year since her [...] 39 minutes Charges/Coding Visit Charges Inpatient E&M: 57948 Init Hosp L2 12/03/24 1047 <Electronically signed by Marga Butcher MD> Cosigner Signature (if applicable): CC: ~ Signed ADDENDUM by Dr. Marga Butcher MD on 12/03/24 at 1051 Addendum Wrong code initially placed, added appropriate code for hospital follow-up level2 Visit Charges Inpatient E&M: 54197 Subs Hosp L2 12/03/24 1051<Electronically signed by Marga Butcher MD> Cosigner Signature (if applicable): cc: ~* [facility]igned [facility] Work Phone: 1(236) 870-850608-03-2025 Progress note Author Marga Butcher [facility] Note Date/Time December 03, 2024 10: 51am [facility] Medical Records Department [address] [place] [address] Progress Note - Hospitalist 12/03/24 1042 MR#: [id number] Acct: [id number] Name: ROBERTO FERGUSON Rep #:[id number] : 1935 89 From: Marga Butcher MD PCP: Dr. Linda Mao MD Status :ADM IN Location: [place] [id number] Reason for Visit Chief Complaint: Dizziness/lightheadedness with [...] % (Auto) 47.2, Lymph % (Auto) 33.8, Mil[place] % (Auto) 15.7 H, Eos % (Auto) [...] home ? Admit under observation status to [facility]. PT/OT/case management consulted. Unclear etiology but symptoms [...] had an event previous or a silent NM sometime within the last year since her [...] 39 minutes Charges/Coding Visit Charges Inpatient E&M: 54623 Init Hosp L2 12/03/24 1047 <Electronically signed by Marga Butcher MD> Cosigner Signature (if applicable): CC: ~ Signed ADDENDUM by Dr. Marga Butcher MD on 12/03/24 at 1051 Addendum Wrong code initially placed, added appropriate code for hospital follow-up level2 Visit Charges Inpatient E&M: 87342 Subs Hosp L2 12/03/24 1051<Electronically signed by Marga Butcher MD> Cosigner Signature (if applicable): cc: ~* [facility]igned [facility] Work Phone: 1([phone] 728-560108-03-2025 Progress note [facility] Medical Records Department [address] [place] [address] Progress Note - Hospitalist 12/03/24 1042 MR#: [id number] Acct: [id number] Name: ROBERTO FERGUSON Rep #:[id number] : 1935 89 From: Marga Butcher MD PCP: Dr. Linda Mao MD Status :ADM IN Location: [place] HY849-3 Reason for Visit Chief Complaint: Dizziness/lightheadedness with [...] % (Auto) 47.2, Lymph % (Auto) 33.8, Milam % (Auto) 15.7 H, Eos % (Auto) [...] home ? Admit under observation status to [facility]. PT/OT/case management consulted. Unclear etiology but symptoms [...] had an event previous or a silent NM sometime within the last year since her [...] 39 minutes Charges/Coding Visit Charges Inpatient E&M: 03724 Init Hosp L2 12/03/24 1047 Cosigner Signature (if applicable): CC: ~ Signed ADDENDUM by Dr. Marga Butcher MD on 12/03/24 at 1051 Addendum Wrong code initially placed, added appropriate code for hospital follow-up level2 Visit Charges Inpatient E&M: 99320 Subs Hosp L2 12/03/24 1051 Cosigner Signature (if applicable): cc: ~* [facility]igned [facility]08-02-2025 Progress note Author Marga Butcher [facility] Note Date/Time December 02, 2024 5:3 5pm [facility] Medical Records Department [address] [place] [address] Progress Note - Hospitalist 12/02/24 1721 MR#: [id number] Acct: [id number] Name: ROBERTO FERGUSON Rep #:[id number] : 1935 89 From: Marga Butcher MD PCP: Dr. Linda Mao MD Status :ADM IN Location: [place] [address] Reason for Visit Chief Complaint: Dizziness/lightheadedness with [...] (Auto) 39.1 L, Lymph % (Auto) 40.7, Milam % (Auto) 17.1 H, Eos % (Auto) [...] home ? Admit under observation status to [facility]. PT/OT/case management consulted. Unclear etiology but symptoms [...] had an event previous or a silent NM sometime within the last year since her [...] Synthroid. #DVT ppx: Chronically on Eliquis Marga Btucher MD Time spent in the patient's overall evaluation, decision-making process, review of diagnostic data, adjustment of management, discussion with other providers, nursing and ancillary staff involved in patient's care documentation, 58 minutes Charges/Coding Visit Charges Inpatient E&M: 61832 Subs Hosp L3 12/02/241734 <Electronically signed by Marga Butcher MD> Cosigner Signature (if applicable): CC: ~ [facility]igned [facility] Work Phone: 1(605) 350-987408-02-2025 Progress note Author Marga Butcher [facility] Note Date/Time December 02, 2024 5:3 5pm [facility] Medical Records Department [address] [place] [address] Progress Note - Hospitalist 12/02/24 1721 MR#: [id number] Acct: [id number] Name: ROBERTO FERGUSON Rep #:[id number] : 1935 89 From: Marga Butcher MD PCP: Dr. Linda Mao MD Status :ADM IN Location: [place] RE871-6 Reason for Visit Chief Complaint: Dizziness/lightheadedness with [...] (Auto) 39.1 L, Lymph % (Auto) 40.7, Milam % (Auto) 17.1 H, Eos % (Auto) [...] home ? Admit under observation status to [facility]. PT/OT/case management consulted. Unclear etiology but symptoms [...] had an event previous or a silent NM sometime within the last year since her [...] 58 minutes Charges/Coding Visit Charges Inpatient E&M: 53071 Subs Hosp L3 12/02/24 1735 <Electronically signed by Marga Butcher MD> Cosigner Signature (if applicable): CC: ~ [facility]igned [facility] Work Phone: 1(954) 854-721508-02-2025 Progress note [facility] Medical Records Department [address] [place] [address] Progress Note - Hospitalist 12/02/24 1721 MR#: [id number] Acct: [id number] Name: ROBERTO FERGUSON Rep #:[id number] : 1935 89 From: Marga Butcher MD PCP: Dr. Linda Mao MD Status :ADM IN Location: [place] KO853-0 Reason for Visit Chief Complaint: Dizziness/lightheadedness with [...] (Auto) 39.1 L, Lymph % (Auto) 40.7, Milam % (Auto) 17.1 H, Eos % (Auto) [...] home ? Admit under observation status to [facility]. PT/OT/case management consulted. Unclear etiology but symptoms [...] had an event previous or a silent NM sometime within the last year since her [...] 58 minutes Charges/Coding Visit Charges Inpatient E&M: 43577 Subs Hosp L3 12/02/24 8723 Cosigner Signature (if applicable): CC: ~ [facility]igned [facility]08-01-2025 Progress note Author Marga Butcher [facility] Note Date/Time December 01, 2024 4:1 6pm [facility] Medical Records Department [address] [place] [address] Progress Note - Hospitalist 12/01/24 1459 MR#: [id number] Acct: [id number] Name: ROBERTO FERGUSON Rep #:[id number] : 1935 89 From: Marga Butcher MD PCP: Dr. Linda Mao MD Status :ADM PATRICIA Location: [address] Reason for Visit Chief Complaint: Dizziness/lightheadedness with [...] Sl. Cloudy, Urine pH 7.0, Ur Specific [place] 1.010, Urine Protein 15 H, Urine Glucose [...] home ? Admit under observation status to [facility]. PT/OT/case management consulted. Unclear etiology but symptoms [...] 37 minutes Charges/Coding Visit Charges Inpatient E&M: 23603 Subs Hosp L2 12/01/24 1616 <Electronically signed by Marga Butcher MD> Cosigner Signature (if applicable): CC: ~ [facility]igned [facility] Work Phone: 1(657) 220-452108-01-2025 Progress note Author Marga Butcher [facility] Note Date/Time December 01, 2024 4:1 6pm [facility] Medical Records Department [address] [place] [address] Progress Note - Hospitalist 12/01/24 1459 MR#: [id number] Acct: [id number] Name: ROBERTO FERGUSON Rep #:[id number] : 1935 89 From: Marga Butcher MD PCP: Dr. Linda Mao MD Status :ADM PATRICIA Location: [place] LK103-1 Reason for Visit Chief Complaint: Dizziness/lightheadedness with [...] Room Air 12/01/24 10:09 12/01/24 10:55 12/01/24 10:09 12/01/24 10:09 12/01/24 10:09 12/01/24 10:55 Oxygen Delivery [...] Sl. Cloudy, Urine pH 7.0, Ur Specific [place] 1.010, Urine Protein 15 H, Urine Glucose [...] home ? Admit under observation status to [facility]. PT/OT/case management consulted. Unclear etiology but symptoms [...] 37 minutes Charges/Coding Visit Charges Inpatient E&M: 87682 Subs Hosp L2 12/01/24 1616 <Electronically signed by Marga Butcher MD> Cosigner Signature (if applicable): CC: ~ [facility]igned [facility] Work Phone: 1(571) 791-241808-01-2025 Progress note [facility] Medical Records Department [address] [place] [address] Progress Note - Hospitalist 12/01/24 5827 MR#: [id number] Acct: [id number] Name: ROBERTO FERGUSON Rep #:[id number] : 1935 89 From: Marga Butcher MD PCP: Dr. Linda Mao MD Status :ADM PATRICIA Location: [place] TC726-9 Reason for Visit Chief Complaint: Dizziness/lightheadedness with [...] Air 12/01/24 10:12/01/24 10:55 12/01/24 10:12/01/24 10:12/01/24 10:09 12/01/24 10:55 Oxygen Delivery Method [...] Sl. Cloudy, Urine pH 7.0, Ur Specific [place] 1.010, Urine Protein 15 H, Urine Glucose [...] home ? Admit under observation status to [facility]. PT/OT/case management consulted. Unclear etiology but symptoms [...] and spironolactone for now. Appreciate therapy recommendations. -8/: Blood pressure remains low 100s and high [...] 37 minutes Charges/Coding Visit Charges Inpatient E&M: 83283 Subs Hosp L2 12/01/24 1616 Cosigner Signature (if applicable): CC: ~ [facility]igned [facility]08-01-2025 History and physical note Author Sean Thornton [facility] Note Date/Time November 30, 2024 10:2 5pm [facility] Medical Records Department [address] [place] [address] H&P Exam - Hospitalist 11/30/24 1413 MR#: [id number] Acct: [id number] Name: ROBERTO FERGUSON Rep #:[id number] : 1935 89 From: Sean ramírez DO PCP: Dr. Linda Mao MD Status :ADM PATRICIA Location: [facility] IB427-5 HPI - General General Date of Admission: 11/30/24 Date of Service: 11/30/24 Chief Complaint: Dizziness/lightheadedness with gait unsteadiness and fall at home HPI Narrative ROBERTO FERGUSON, is a 89 F who presented to [facility] ED on 11/30/2024 with dizziness/lightheadedness with gait [...] currently. Will be admitted for further management. [facility] Medical History (Updated 11/30/24 @ 16:13 by Rody Faustin) Anxiety Depression Hypothyroidism Non-smoker Atrial fibrillation Congestive heart failure (CHF) Pacemaker Myocardial infarct Shingles Atrial tachycardia Presence of permanent cardiac pacemaker CKD (chronic kidney disease) stage 3, GFR 30-59 ml/min Non-rheumatic mitral regurgitation Mitral valve insufficiency Rheumatoid arthritis STEMI (ST elevation myocardial infarction) Atherosclerosis of coronary artery of [place] heart without angina pectoris History of coronary [...] no focal motor deficits Coordination / Balance: fwpgye-ku-jaum test normal Speech: speech normal Motor Exam: [...] % (Auto) 52.8, Lymph % (Auto) 27.5, Mil[place] % (Auto) 17.9 H, Eos % (Auto) [...] pleural effusion and bibasilar atelectasis. Reading Location: IHH-[id number]-L Brain CT 11/30/24 11:07 IMPRESSION: CHRONIC CHANGES. NO ACUTE FINDINGS. Reading Location: [id number] Cervical Spine CT 11/30/24 11:07 IMPRESSION: Multilevel degenerative changes with facet joint osteoarthritis and hypertrophy as described. Stable anterior subluxation/listhesis of C4 on C5 and C5 on C6. Stable soft tissue density in the anterior aspect of the right lung apex. Reading Location: [facility] Assessment & Plan Assessment/Plan (1) Dizziness: (2) Fall: PLAN: Plan Patient is an 89-year-old female who presented to [facility] ED on 11/30/2024 with dizziness/lightheadedness with gait unsteadiness and fall at home. 1. Dizziness/lightheadedness with gait unsteadiness and minor fall at home ? Admit under observation status to [facility]. PT/OT/case management consulted. Unclear etiology but symptoms [...] 75 minutes. Charges/Coding Visit Charges Inpatient E&M: 31740 Init Hosp L3 11/30/242224 <Electronically signed by Sean Thornton DO> Cosigner Signature (if applicable): CC: Dr. Sean Thornton DO; Dr. Linda Mao MD~ [facility]igned [facility] Work Phone: 1(495) 384-248508-01-2025 History and physical note Author Sean Thornton [facility] Note Date/Time November 30, 2024 10:2 5pm [facility] Medical Records Department [address] [place] [address] H&P Exam - Hospitalist 11/30/24 1413 MR#: [id number] Acct: [id number] Name: ROBERTO FERGUSON Rep #:[id number] : 1935 89 From: Sean ramírez DO PCP: Dr. Linda Mao MD Status :ADM PATRICIA Location: [place] [address]1 HPI - General General Date of Admission: 11/30/24 Date of Service: 11/30/24 Chief Complaint: Dizziness/lightheadedness with gait unsteadiness and fall at home HPI Narrative ROBERTO FERGUSON, is a 89 F who presented to [facility] ED on 11/30/2024 with dizziness/lightheadedness with gait [...] currently. Will be admitted for further management. [facility] Medical History (Updated 11/30/24 @ 16:13 by Rody Faustin) Anxiety Depression Hypothyroidism Non-smoker Atrial fibrillation Congestive heart failure (CHF) Pacemaker Myocardial infarct Shingles Atrial tachycardia Presence of permanent cardiac pacemaker CKD (chronic kidney disease) stage 3, GFR 30-59 ml/min Non-rheumatic mitral regurgitation Mitral valve insufficiency Rheumatoid arthritis STEMI (ST elevation myocardial infarction) Atherosclerosis of coronary artery of [place] heart without angina pectoris History of coronary [...] no focal motor deficits Coordination / Balance: juiaxs-ka-wzpl test normal Speech: speech normal Motor Exam: [...] % (Auto) 52.8, Lymph % (Auto) 27.5, [place] % (Auto) 17.9 H, Eos % (Auto) [...] pleural effusion and bibasilar atelectasis. Reading Location: [id number]-W Brain CT 11/30/24 11:07 IMPRESSION: CHRONIC CHANGES. [...] is an 89-year-old female who presented to [facility] ED on 11/30/2024 with dizziness/lightheadedness with gait unsteadiness and fall at home. 1. Dizziness/lightheadedness with gait unsteadiness and minor fall at home ? Admit under observation status to [facility]. PT/OT/case management consulted. Unclear etiology but symptoms [...] 75 minutes. Charges/Coding Visit Charges Inpatient E&M: 34221 Init Hosp L3 11/30/247 <Electronically signed by Sean Thornton DO> Cosigner Signature (if applicable): CC: Dr. Sean Thornton DO; Dr. Linda Mao MD~ [facility]igned [facility] Work Phone: 1(207) 685-112507-31-2025 History and physical note [facility] Medical Records Department [address] [place] [address] H&P Exam - Hospitalist 11/30/24 1413 MR#: [id number] Acct: [id number] Name: ROBERTO FERGUSON Rep #:[id number] : 1935 89 From: Sean ramírez DO PCP: Dr. Linda Mao MD Status :ADM PATRICIA Location: [facility] OO054-1 HPI - General General Date of Admission: 11/30/24 Date of Service: 11/30/24 Chief Complaint: Dizziness/lightheadedness with gait unsteadiness and fall at home HPI Narrative ROBERTO FERGUSON, is a 89 F who presented to [facility] ED on 11/30/2024 with dizziness/lightheadedness with gait [...] currently. Will be admitted for further management. [facility] Medical History (Updated 11/30/24 @ 16:13 by Rody Faustin) Anxiety Depression Hypothyroidism Non-smoker Atrial fibrillation Congestive heart failure (CHF) Pacemaker Myocardial infarct Shingles Atrial tachycardia Presence of permanent cardiac pacemaker CKD (chronic kidney disease) stage 3, GFR 30-59 ml/min Non-rheumatic mitral regurgitation Mitral valve insufficiency Rheumatoid arthritis STEMI (ST elevation myocardial infarction) Atherosclerosis of coronary artery of [place] heart without angina pectoris History of coronary [...] no focal motor deficits Coordination / Balance: okuczs-kq-bfab test normal Speech: speech normal Motor Exam: [...] % (Auto) 52.8, Lymph % (Auto) 27.5, [place] % (Auto) 17.9 H, Eos % (Auto) [...] pleural effusion and bibasilar atelectasis. Reading Location: [id number] Brain CT 11/30/24 11:07 IMPRESSION: CHRONIC CHANGES. NO ACUTE FINDINGS. Reading Location: [id number]-A Cervical Spine CT 11/30/24 11:07 IMPRESSION: Multilevel degenerative changes with facet joint osteoarthritis and hypertrophy as described. Stable anterior subluxation/listhesis of C4 on C5 and C5 on C6. Stable soft tissue density in the anterior aspect of the right lung apex. Reading Location: [id number]-W Assessment & Plan Assessment/Plan (1) Dizziness: (2) Fall: PLAN: Plan Patient is an 89-year-old female who presented to [facility] ED on 11/30/2024 with dizziness/lightheadedness with gait unsteadiness and fall at home. 1. Dizziness/lightheadedness with gait unsteadiness and minor fall at home ? Admit under observation status to [facility]. PT/OT/case management consulted. Unclear etiology but symptoms [...] 75 minutes. Charges/Coding Visit Charges Inpatient E&M: 97548 Init Hosp L3 11/30/242224 Cosigner Signature (if applicable): CC: Dr. Sean Thornton DO; Dr. Linda Mao MD~ Signed [facility]07-31-2025 Discharge summary Author [facility] Note Date/Time November 30, 2024 3:05 pm [facility] Medical Records Department [address] [place] [address] Emergency Department Summary 11/30/24 MR#: [id number] Acct: [id number] Name: ROBERTO FERGUSON Rep #:[id number] : 1935 89 From: [place]os [place] [...] she moves her head or sits up. [facility] Medical History Shingles Atrial tachycardia Presence of permanent cardiac pacemaker CKD (chronic kidney disease) stage 3, GFR 30-59 ml/min Non-rheumatic mitral regurgitation Mitral valve insufficiency Rheumatoid arthritis STEMI (ST elevation myocardial infarction) Atherosclerosis of coronary artery of [place] heart without angina pectoris History of coronary [...] worse when sits up or moves head [id number]. Positive numbness of bilateral hands and feet. [...] % (Auto) 52.8 Lymph % (Auto) 27.5 [place] % (Auto) 17.9 H Eos % (Auto) [...] pleural effusion and bibasilar atelectasis. Reading Location: [id number]-[id number]-R Brain CT 11/30/24 11:07 IMPRESSION: CHRONIC CHANGES. NO ACUTE FINDINGS. Reading Location: [id number]-U Cervical Spine CT 11/30/24 11:07 IMPRESSION: Multilevel degenerative changes with facet joint osteoarthritis and hypertrophy as described. Stable anterior subluxation/listhesis of C4 on C5 and C5 on C6. Stable soft tissue density in the anterior aspect of the right lung apex. Reading Location: GFV-[id number]-Y Management Discussion w/another healthcare provider: Hospitalist (Dr. Thornton) Discharge Plan Dx/Rx/DC Orders Clinical Impression: Dizziness, Fall, Traumatic hematoma of forehead, Closed head injury, Anticoagulant long-term use, Paresthesias Disposition Disposition: Acute Care Hospital [facility] What to do if you have Problems For any increased pain, shortness of breath, bleeding, nausea or vomiting, chestpain, or any unexpected problems, contact your Primary Care Provider. Call [facility] ([phone]) or report to the closest Emergency Room. Call 911 if necessary. 11/30/24 1505 <Electronically signed by Nikos Lake MD> Cosigner Signature (if applicable): CC: Dr. Linda Mao MD ~ Signed [facility] Work Phone: 1(546) 860-465307-31-2025 Discharge summary Author [facility] Note Date/Time November 30, 2024 3:05 pm [facility] Medical Records Department [address] [place] [address] Emergency Department Summary 11/30/24 MR#: [id number] Acct: [id number] Name: ROBERTO FERGUSON Rep #:[id number] : 1935 89 From: Nikos [place] [...] she moves her head or sits up. [facility] Medical History Shingles Atrial tachycardia Presence of permanent cardiac pacemaker CKD (chronic kidney disease) stage 3, GFR 30-59 ml/min Non-rheumatic mitral regurgitation Mitral valve insufficiency Rheumatoid arthritis STEMI (ST elevation myocardial infarction) Atherosclerosis of coronary artery of [place] heart without angina pectoris History of coronary [...] worse when sits up or moves head [id number]. Positive numbness of bilateral hands and feet. [...] % (Auto) 52.8 Lymph % (Auto) 27.5 Milam % (Auto) 17.9 H Eos % (Auto) [...] pleural effusion and bibasilar atelectasis. Reading Location: [facility] Brain CT 11/30/24 11:07 IMPRESSION: CHRONIC CHANGES. NO ACUTE FINDINGS. Reading Location: [id number]-Z Cervical Spine CT 11/30/24 11:07 IMPRESSION: Multilevel degenerative changes with facet joint osteoarthritis and hypertrophy as described. Stable anterior subluxation/listhesis of C4 on C5 and C5 on C6. Stable soft tissue density in the anterior aspect of the right lung apex. Reading Location: [facility] Management Discussion w/another healthcare provider: Hospitalist (Dr. Thornton) Discharge Plan Dx/Rx/DC Orders Clinical Impression: Dizziness, Fall, Traumatic hematoma of forehead, Closed head injury, Anticoagulant long-term use, Paresthesias Disposition Disposition: Acute Care Hospital [facility] What to do if you have Problems For any increased pain, shortness of breath, bleeding, nausea or vomiting, chestpain, or any unexpected problems, contact your Primary Care Provider. Call [facility] ([phone]) or report to the closest Emergency Room. Call 911 if necessary. 11/30/24 1505 <Electronically signed by Nikos Lake MD> Cosigner Signature (if applicable): CC: Dr. Linda Mao MD ~ Signed [facility] Work Phone: 1([phone]) 204-850407-31-2025 Discharge summary [facility] Medical Records Department [address] [place] [address] Emergency Department Summary 11/30/24 MR#: [id number] Acct: [id number] Name: ROBERTO FERGUSON Rep #:[id number] : 1935 89 From: Nikos Lake MD PCP: Dr. Linda Mao MD Status :REG ER Location: ED HPI History of Present Illness Chief Complaint: Fall Narrative Narrative: 89-year-old female past medical history of coronary artery disease and pacemakerpresents with dizziness and lightheadedness which caused her to fall this morning. She states that she got up at [id number] this morning, approximately 5hours ago, and was [...] she moves her head or sits up. [facility] Medical History Shingles Atrial tachycardia Presence of permanent cardiac pacemaker CKD (chronic kidney disease) stage 3, GFR 30-59 ml/min Non-rheumatic mitral regurgitation Mitral valve insufficiency Rheumatoid arthritis STEMI (ST elevation myocardial infarction) Atherosclerosis of coronary artery of [place] heart without angina pectoris History of coronary [...] worse when sits up or moves head [id number]. Positive numbness of bilateral hands and feet. [...] % (Auto) 52.8 Lymph % (Auto) 27.5 [place] % (Auto) 17.9 H Eos % (Auto) [...] pleural effusion and bibasilar atelectasis. Reading Location: [id number]-M Brain CT 11/30/24 11:07 IMPRESSION: CHRONIC CHANGES. NO ACUTE FINDINGS. Reading Location: WFF-SONOISVTV-V Cervical Spine CT 11/30/24 11:07 IMPRESSION: Multilevel degenerative changes with facet joint osteoarthritis and hypertrophy as described. Stable anterior subluxation/listhesis of C4 on C5 and C5 on C6. Stable soft tissue density in the anterior aspect of the right lung apex. Reading Location: [id number]-W Management Discussion w/another healthcare provider: Hospitalist (Dr. Thornton) Discharge Plan Dx/Rx/DC Orders Clinical Impression: Dizziness, Fall, Traumatic hematoma of forehead, Closed head injury, Anticoagulant long-term use, Paresthesias Disposition Disposition: Acute Care Hospital [facility] What to do if you have Problems For any increased pain, shortness of breath, bleeding, nausea or vomiting, chestpain, or any unexpected problems, contact your Primary Care Provider. Call [facility] ([phone]) or report tothe closest Emergency Room. Call 911 if necessary. 11/30/24 1505 Cosigner Signature (if applicable): CC: Dr. Linda Mao MD ~ Signed [facility]07-31-2025 Discharge summary [facility] Note Date/Time November 30, 2024 3:05 pm [facility] Medical Records Department [address] [place] [address] Emergency Department Summary 11/30/24 MR#: [id number] Acct: [id number] Name: ROBERTO FERGUSON Rep #:[id number] : 1935 89 From: [place]os [place] [...] she moves her head or sits up. [facility] Medical History Shingles Atrial tachycardia Presence of permanent cardiac pacemaker CKD (chronic kidney disease) stage 3, GFR 30-59 ml/min Non-rheumatic mitral regurgitation Mitral valve insufficiency Rheumatoid arthritis STEMI (ST elevation myocardial infarction) Atherosclerosis of coronary artery of [place] heart without angina pectoris History of coronary [...] mg 10 mg PO QAM #90 tabs 10/01/24 Unknown Rx tablet (Farxiga) metoprolol tartrate 50 [...] worse when sits up or moves head [id number]. Positive numbness of bilateral hands and feet. [...] % (Auto) 52.8 Lymph % (Auto) 27.5 [place] % (Auto) 17.9 H Eos % (Auto) [...] pleural effusion and bibasilar atelectasis. Reading Location: [id number]-V Brain CT 11/30/24 11:07 IMPRESSION: CHRONIC CHANGES. NO ACUTE FINDINGS. Reading Location: [id number]-[id number]-X Cervical Spine CT 11/30/24 11:07 IMPRESSION: Multilevel degenerative changes with facet joint osteoarthritis and hypertrophy as described. Stable anterior subluxation/listhesis of C4 on C5 and C5 on C6. Stable soft tissue density in the anterior aspect of the right lung apex. Reading Location: VZO-[id number]-Z Management Discussion w/another healthcare provider: Hospitalist (Dr. Thornton) Discharge Plan Dx/Rx/DC Orders Clinical Impression: Dizziness, Fall, Traumatic hematoma of forehead, Closed head injury, Anticoagulant long-term use, Paresthesias Disposition Disposition: Acute Care Hospital [facility] What to do if you have Problems For any increased pain, shortness of breath, bleeding, nausea or vomiting, chestpain, or any unexpected problems, contact your Primary Care Provider. Call [facility] ([phone]) or report to the closest Emergency Room. Call 911 if necessary. 11/30/24 1505 <Electronically signed by Nikos Lake MD> Cosigner Signature (if applicable): CC: Dr. Linda Mao MD ~ Signed [facility] Work Phone: 1(142) 950-612907-31-2025 Radiology Diagnostic study note [facility] Imaging Services [address] [place], [place] [address] Spine Cervical without Contras MR#: [id number] Acct: [id number] Name: ROBERTO FERGUSON Rep #: [id number] : 1935 F 89 From: Jey Cardenas MD PCP: Dr. Linda Mao MD Status: REG ER Study:Spine Cervical without Contras Date of Exam: 11/30/24 Exam# [id number] Ordering Dr: Nikos Lake MD PROCEDURE: SPINE [...] the right lung apex. Reading Location: [facility] CC: Dr. Nikos Lake MD; Dr. Linda Mao MD ~ Crop Quantitative Geneticist: Signed [facility]07-31-2025 Radiology Diagnostic study note [facility] Imaging Services [address], [place] [id number] Brain/Head without Contrast MR#: [id number] Acct: [id number] Name: ROBERTO FERGUSON Rep #: [id number] : 1935 F 89 From: Jey Cardenas MD PCP: Dr. Linda Mao MD Status: REG ER Study:Brain/Head without Contrast Date of Exa m: 11/30/24 Exam# [id number] Ordering Dr: Nikos Lake MD PROCEDURE: BRAIN/HEAD [...] CHANGES. NO ACUTE FINDINGS. Reading Location: [facility] CC: Dr. Nikos Lake MD; Dr. Linda Mao MD ~ Crop Quantitative Geneticist: Signed [facility]07-31-2025 Radiology Diagnostic study note [facility] Imaging Services [address] [place], [place] [id number] Chest 1 View (Portable) MR#: [id number] Acct: [id number] Name: ROBERTO FERGUSON Rep #: [id number] : 1935 F 89 From: Jey Cardenas MD PCP: Dr. Linda Mao MD Status: REG ER Study:Chest 1 View (Portable) Date of Exam: 11/30/24 Exam# [id number] Ordering Dr: Nikos Lake MD PROCEDURE: CHEST [...] pleural effusion and bibasilar atelectasis. Reading Location: [facility] CC: Dr. Nikos Lake MD; Dr. Linda Mao MD ~ Crop Quantitative Geneticist: Signed [facility]05-13-2025 Evaluation note* Diagnosis Onset Date Resolution Status Admit Date Hyperlipidemia acute September 12, 2024 11:05am Nonischemic cardiomyopathy acute September 12, 2024 11:05am Pleural effusion, right acute M ay 2024 11:05am AF (paroxysmal atrial fibrillation) chronic September 12, 2024 1 1:05am Atherosclerosis of coronary artery of [place] heart without angina pectoris chronic September 12, 2024 1 1:05am Presence of permanent cardia c pacemaker chronic September 12, 2024 1 1:05am [facility] Work Phone: [phone] 296-122405-13-2025 Evaluation note* Diagnosis Onset Date Resolution Status Admit Date Hyperlipidemia acute September 12, 2024 11:05am Nonischemic cardiomyopathy acute September 12, 2024 11:05am AF (paroxysmal atrial fibrillation) chronic September 12, 2024 1 1:05am Atherosclerosis of coronary artery of [place] heart without angina pectoris chronic September 12, [...] effusion, right chronic J une 2024 12:19pm [facility] Work Phone: 1([phone]) 762-762405-13-2025 Evaluation note* Diagnosis Onset Date Resolution Status Admit Date Hyperlipidemia acute September 12, 2024 11:05am Nonischemic cardiomyopathy acute September 12, 2024 11:05am AF (paroxysmal atrial fibrillation) chronic September 12, 2024 1 1:05am Atherosclerosis of coronary artery of [place] heart without angina pectoris chronic September 12, [...] of forehead acute November 30, 2024 2:22pm [facility] Work Phone: 1([phone]) 593-811305-13-2025 Evaluation note* Diagnosis Onset Date Resolution Status Admit Date Hyperlipidemia acute September 12, 2024 11:05am Nonischemic cardiomyopathy acute September 12, 2024 11:05am AF (paroxysmal atrial fibrillation) chronic September 12, 2024 11:05am Atherosclerosis of coronary artery of [place] heart without angina pectoris chronic August 11:05am [...] 02, 2024 5:28pm Complete heart block acute Augu st 2024 5:28pm Congestive heart failure (CHF) [...] December 02, 2024 5:28pm Atrial fibrillation acute Augus t 2024 10:37am Complete heart block acute Decu st 2024 10:37am Nonischemic cardiomyopathy acute December 04, 2024 10:37am Pacemaker acute December 04 10:37am Presence of permanent cardiac pacemaker chronic December 04 10:37am [facility] Work Phone: 1([phone]) 589-471005-13-2025 Evaluation note* Diagnosis Onset Date Resolution Status Admit Date Hyperlipidemia acute September 12, 2024 11:05am Nonischemic cardiomyopathy acute September 12, 2024 11:05am AF (paroxysmal atrial fibrillation) chronic September 12, 2024 11:05am Atherosclerosis of coronary artery of [place] heart without angina pectoris chronic August 11:05am [...] 02, 2024 4:07pm Complete heart block acute st 2024 4:07pm Congestive heart failure (CHF) [...] resolved December 02 4:07pm Atrial fibrillation acute Decus t 2024 10:37am Complete heart block acute Decu st 2024 10:37am Nonischemic cardiomyopathy acute December 04, 2024 10:37am Pacemaker acute December 04 10:37am Presence of permanent cardiac pacemaker chronic December 04 10:37am [facility] Work Phone: 1(415) 307-425005-13-2025 Evaluation note* Diagnosis Onset Date Resolution Status Admit Date Hyperlipidemia acute September 12, 2024 11:05am Nonischemic cardiomyopathy acute September 12, 2024 11:05am AF (paroxysmal atrial fibrillation) chronic September 12, 2024 11:05am Atherosclerosis of coronary artery of [place] heart without angina pectoris chronic August 11:05am Pleural effusion, right chronic M 2024 11:05am Presence of permanent cardiac pacemaker chronic September 12, 2024 11:05am History of malignant neoplasm of right breast chronic October 232024 12:19pm 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 October 23, 2024 12:19pm Pleural effusion, right chronic J une 2024 12:19pm Anticoagulant long-term use acute December 02, 2024 4:07pm Closed head injury acute December 02, 2024 4:07pm Complete heart block acute st 2024 4:07pm Congestive heart failure (CHF) [...] resolved December 02 4:07pm Atrial fibrillation acute Decus t 2024 10:37am Complete heart block acute st 2024 10:37am Nonischemic cardiomyopathy acute December 04, 2024 10:37am Pacemaker acute December 04 10:37am Presence of permanent cardiac pacemaker chronic December 04 10:37am Kyphosis of cervical region acute December 19, 2024 9:51am Spondylolisthesis, cervical region acute December 19 9:51am Cervical radiculopathy noneactive Au henry 2024 9:51am [facility] Work Phone: 1(958) 369-549605-13-2025 Evaluation note* Diagnosis Onset Date Resolution Status Admit Date Hyperlipidemia acute September 12, 2024 11:05am Nonischemic cardiomyopathy acute September 12, 2024 11:05am AF (paroxysmal atrial fibrillation) chronic September 12, 2024 11:05am Atherosclerosis of coronary artery of [place] heart without angina pectoris chronic August 11:05am [...] resolved December 02 4:07pm Atrial fibrillation acute 2024 10:37am Complete heart block acute 2024 [...] 27 9:36am Atherosclerosis of coronary artery of [place] heart without angina pectoris chronic December 022024 9:36am Pleural effusion, right chronic A ugust 2024 9:36am Presence of permanent cardiac pacemaker chronic December 27, 025 9:36am [facility] Work Phone: 1([phone]) 655-377103-23-2025 Discharge summary [facility] Medical Records Department [address] [place] [address] Emergency Department Summary 07/23/24 MR#: [id number] Acct: [id number] Name: ROBERTO FERGUSON Rep #:[id number] : 1935 88 From: Anant Cooper [...] myocardial infarction) Atherosclerosis of coronary artery of [place] heart without angina pectoris History of coronary [...] 84.1 H Lymph % (Auto) 5.7 L Mil[place] % (Auto) 9.5 Eos % (Auto) 0.0 [...] Clarity Clear Urine pH 5.0 Ur Specific [place] 1.015 Urine Protein 30 H Urine Glucose [...] No fracture site is evident. Reading Location: [id number] Cervical Spine CT 07/23/24 14:41 IMPRESSION: 1. No fracture is noted. 2. Stable subluxation compared to the prior CT examination of 08/19/2022. 3. Degenerative changes are again noted, fairly similar to the prior examination. Reading Location: [id number] CT of the head without contrast reveals [...] Care Provider] - As Needed Print Language: Moldovan Disposition Disposition: Home, Self Care What to do if you have Problems For any increased pain, shortness of breath, bleeding, nausea or vomiting, chestpain, or any unexpected problems, contact your Primary Care Provider. Call [facility] ([phone]) or report tothe closest Emergency Room. Call 911 if necessary. 07/23/24 1818 Cosigner Signature (if applicable): CC: Dr. Teagan Hall MD ~ Signed [facility]03-23-2025 Radiology Diagnostic study note [facility] Imaging Services [address] [place], [place] [address] Spine Cervical without Contras MR#: [id number] Acct: [id number] Name: ROBERTO FERGUSON Rep #: [id number] : 1935 F 88 From: Tomas Holt MD PCP: Dr. Teagan Hall MD Status: REG ER Study:Spine Cervical without Contras Date of Exam: 07/23/24 Exam# [id number] Ordering Dr: Shyla Cooper MD PROCEDURE: SPINE [...] similar to the prior examination. Reading Location: [address] CC: Dr. Teagan Hall MD; Dr. Anant Cooper MD ~ Crop Quantitative Geneticist: Signed [facility]03-23-2025 Radiology Diagnostic study note [facility] Imaging Services [address] [place] [address] Brain/Head without Contrast MR#: [id number] Acct: [id number] Name: ROBERTO FERGUSON Rep #: [id number] : 1935 F 88 From: Tomas Holt MD PCP: Dr. Teagan Hall MD Status: REG ER Study:Brain/Head without Contrast Date of Exa m: 07/23/24 Exam# [id number] Ordering Dr: Shyla Cooper MD PROCEDURE: BRAIN/HEAD [...] No fracture site is evident. Reading Location: [address] CC: Dr. Teagan Hall MD; Dr. Anant Cooper MD ~ Crop Quantitative Geneticist: Signed [facility]03-23-2025 Discharge summary Author Anant Cooper [facility] Note Date/Time July 23, 2024 6:1 8pm [facility] Medical Records Department [address] [place] [address] Emergency Department Summary 07/23/24 MR#: [id number] Acct: [id number] Name: ROBERTO FERGUSON Rep #:[id number] : 1935 88 From: Anant Cooper [...] myocardial infarction) Atherosclerosis of coronary artery of [place] heart without angina pectoris History of coronary [...] 84.1 H Lymph % (Auto) 5.7 L [place] % (Auto) 9.5 Eos % (Auto) 0.0 [...] Clarity Clear Urine pH 5.0 Ur Specific [place] 1.015 Urine Protein 30 H Urine Glucose [...] No fracture site is evident. Reading Location: [address] Cervical Spine CT 07/23/24 14:41 IMPRESSION: 1. No fracture is noted. 2. Stable subluxation compared to the prior CT examination of 08/19/2022. 3. Degenerative changes are again noted, fairly similar to the prior examination. Reading Location: [address] of the head without contrast [...] Care Provider] - As Needed Print Language: Moldovan Disposition Disposition: Home, Self Care What to do if you have Problems For any increased pain, shortness of breath, bleeding, nausea or vomiting, chestpain, or any unexpected problems, contact your Primary Care Provider. Call [facility] ([phone]) or report to the closest Emergency Room. Call 911 if necessary. 07/23/241817 <Electronically signed by Anant Cooper MD> Cosigner Signature (if applicable): CC: Dr. Teagan Hall MD ~ Signed [facility] Work Phone: 1(503) 676-782703-21-2025 Radiology Diagnostic study note [facility] Imaging Services [address] [place], [place] [address] Chest PA and Lateral MR#: [id number] Acct: [id number] Name: ROBERTO FERGUSON Rep #: [id number] : 1935 F 88 From: Doris Graf MD PCP: Dr. Teagan Hall MD Status: REG CLI Study:Chest PA and Lateral Date of Exam: 07/21/24 Exam# [id number] Ordering Dr: Holli Maldonado PA EXAM: XR [...] Small bilateral pleural effusions, unchanged. Reading Location: [facility] CC: Dr. Teagan Hall MD; WISAM Sherman ~ Crop Quantitative Geneticist: Signed [facility]03-04-2025 Radiology Diagnostic study note [facility] Imaging Services [address] [place] [address] Chest PA and Lateral MR#: [id number] Acct: [id number] Name: ROBERTO FERGUSON Rep #: [id number] : 1935 F 88 From: Doris Graf MD PCP: Dr. Teagan Hall MD Status: REG CLI Study:Chest PA and Lateral Date of Exam: 07/04/24 Exam# [id number] Ordering Dr: Kayden Londono UNDERWATER TRAPPER UNDERWATER TRAPPER-C EXAM: XR Chest, 2 Views CLINICAL INDICATION: [...] 2. Cardiomegaly with mild congestion. Reading Location: [facility] CC: WAYNE Lodnono; Dr. Teagan Hall MD ~ Crop Quantitative Geneticist: Signed [facility]12-30-2024 Evaluation note* Diagnosis Onset Date Resolution Status Admit Date Hyperlipidemia acute April 042023 1:24pm Nonischemic cardiomyopathy acute May 01, 2024 1:24pm Pleural effusion, right acute D ecember 2023 1:24pm AF (paroxysmal atrial fibrillation) chronic May 01, 024 1:24pm Atherosclerosis of coronary artery of [place] heart without angina pectoris chronic May 01 024 1:24pm Presence of permanent cardia c pacemaker chronic May 01 1:24pm [facility] Work Phone: 1(212) 193-581104-23-2024 Procedure [facility] 08-03-2023 Telephone encounter Note* Telephone Encounter - Sander Cope - 08/03/2023 1:53 PM EDT ----- Message from Patito Gonzalez DO sent at 08/03/2023 11:06 AM EDT ----- Please forward my note to patient's PCP, oncologist and patient's quality assurance/r&d lab technician. Recommend for follow-up chest CT in 1 year. Patient prefers to have her imaging and follow-up in [place]. Dr. Jonas had previously ordered her follow-up imaging. She can follow-up with him or with her quality assurance/r&d lab technician there for results if she prefers. Thank you. Sent pt note to PCP, Dr. Owen and Dr. Rodriguez [id number] Miscellaneous Notes* Telephone Encounter - Sander Cope - 08/03/2023 1:53 PM EDT ----- Message from Patito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 patient.[facility] CenterIn the event this information is protected by the Federal Confidentiality of Alcohol and Drug Abuse Patient Records regulations: The Federal rules restrict any use of the information to criminally investigate or prosecute any alcohol or drug abuse patient.[facility] CenterIn the event this information is protected by the Federal Confidentiality of Alcohol and Drug Abuse Patient Records regulations: The Federal rules restrict any use of the information to criminally investigate or prosecute any alcohol or drug abuse patient.[facility] CenterIn the event this information is protected by the Federal Confidentiality of Alcohol and Drug Abuse Patient Records regulations: The Federal rules restrict any use of the information to criminally investigate or prosecute any alcohol or drug abuse patient.[facility] CenterIn the event this information is protected by the Federal Confidentiality of Alcohol and Drug Abuse Patient Records regulations: The Federal rules restrict any use of the information to criminally investigate or prosecute any alcohol or drug abuse patient.[facility] CenterIn the event this information is protected by the Federal Confidentiality of Alcohol and Drug Abuse Patient Records regulations: The Federal rules restrict any use of the information to criminally investigate or prosecute any alcohol or drug abuse patient.[facility] CenterIn the event this information is protected by the Federal Confidentiality of Alcohol and Drug Abuse Patient Records regulations: The Federal rules restrict any use of the information to criminally investigate or prosecute any alcohol or drug abuse patient.[facility] Reason for Visit (unrecogniz ed [...] history of malignant neoplasm of breast Procedures MA OFFICE/OUTPATIENT NEW MODERATE MDM 45-59 MINUTES Matteo Jonas. [address] [place] [address] [facility] [address] [place] [address] Referral ID Status Reason Start Date Expiration Date V isits Requested Visits Authorized [id number] Pending Review 09/15/2022 09/15/2023 1 1 Reason Onset Date Comments Care Coordination 09/30/2022 Lung Nodule Fo llow Up Reason Comments Results Reason Onset Date Comments Care Coordination 06/30/2023 Care Teams (unrecognized sec tion and content) Python Engineer Relationship Specialty Start Date End Date Teagan Hall [address] [place] [address] PCP - General 08/13/00 Python Engineer Relationship Specialty Start Date End Date Teagan Hall [address] [facility] [address] [address] [address] [place], [place] [phone] PCP - General 08/13/00 Python Engineer Relationship Specialty Start Date End Date Teagan Hall [address] [facility] [address] [place], [place] [phone] PCP - General 08/13/00 Team Status: Active [...] Family Provider, Referring Provider Active Julieth Gutierres UNDERWATER TRAPPER, UNDERWATER TRAPPER-C Attending Provider Active Team Status: Inactive Member Role Status Dates Dr. Teagan Hall MD Primary Care Provider Active Dr. Jimenez Shane MD Attending Provider Active Team Status: Inactive Member Role Status Dates Dr. Teagan Hall MD Primary Care Provider Active Dr. Leena Serra MD Attending Provider, Referring Provider Active Python Engineer Relationship Specialty Start Date End Date Teagan Hall [address] [place] [address] PCP - General 08/13/00 Python Engineer Relationship Specialty Start Date End Date Teagan Hall [address] [place] [address] PCP - General 08/13/00 Python Engineer Relationship Specialty Start Date End Date Teagan Hall [address] [place] [address] PCP - General 08/13/00 Team Status: Inactive [...] Prov ider, Attending Provider, Referring Provider Active Python Engineer Relationship Specialty Start Date End Date Teagan Hall [address] [place], [place] [address] PCP - General 08/13/00 Team Status: Active Member Role Status Dates Dr. Teagan Hall MD Primary Care Provider Active Dr. Leena Serra MD Attending Provider, Referring Provider Active Team Status: Inactive Member Role Status Dates Dr. Teagan Hall MD Primary Care Provider Active Dr. Henrry Cano DO Emergency Provider Active Python Engineer Relationship Specialty Start Date End Date Teagan Hall [address] [place] [phone] PCP - General Family Medicine 09/16/22 Team Status: Inactive Member Role Status Dates Dr. Teagan Hall MD Primary Care Provider Active Dr. Henrry Cano DO Attending Provider, Emergency Provider Active Team Status: Inactive Member Role Status Dates Dr. Teagan Hall MD Primary Care Provider Active Dr. Matteo Jonas MD Attending Provider, Referring Pro vider Active Python Engineer Relationship Specialty Start Date End Date Teagan Hall [address] [place] [phone] PCP - General Family Medicine 09/16/22 Team Status: Inactive Member Role Status Dates Dr. Teagan Hall MD Primary Care Provider Active Dr. Seth Garcia MD Emergency Provider Active Team Status: Inactive Member Role Status Dates Dr. Teagan Hall MD Primary Care Provider Active Dr. Seth Garcia MD Attending Provider, Emergency Provider Active Python Engineer Relationship Specialty Start Date End Date Teagan Hall [address] [place] [address] PCP - General Family Medicine 09/16/22 Python Engineer Relationship Specialty Start Date End Date Teagan Hall [address] [place] [phone] PCP - General Family Medicine 09/16/22 Team [...] Care Provider, Referrin g Provider Active Holli JOEL, PA Attending Provider Active Team Status: Inactive [...] Provider, Referrin g Provider Active Sharad Londono UNDERWATER TRAPPER, UNDERWATER TRAPPER-C Attending Provider Active Team Status: Active Member Role Status Dates Dr. Teagan Hall MD Primary Care Provider Active Holli Gaona PA, PA Other Provider Active Dr. Elias Arevalo MD Attending Provider, Referring Pro vider Active Team Status: Active Member Role Status Dates Dr. Teagan Hall MD Primary Care Provider Active Sharad H Bry UNDERWATER TRAPPER, UNDERWATER TRAPPER-C Attending Provider Active Team Status: Inactive Member Role Status Dates Dr. Teagan Hall MD Primary Care Provider Active Dr. Miriam Reyes MD Attending Provider, Emergency Provider Active Team Status: Inactive Member Role Status Dates Dr. Teagan Hall MD Primary Care Provider Active Sharad Londono UNDERWATER TRAPPER, UNDERWATER TRAPPER-C Attending Provider, Referring Pro vider Active Team Status: Inactive Member Role Status Dates Dr. Teagan Hall MD Primary Care Provider Active Dr. Cj Dougherty DO Attending Provider, Emergency Pr ovider Active Team Status: Inactive Member Role Status Dates Dr. Teagan Hall MD Primary Care Provider Active Dr. Leena Serra MD Attending Provider, Referring Provider Active Sharad Londono UNDERWATER TRAPPER, UNDERWATER TRAPPER-C Other Provider Active Team Status: Active Member [...] Teagan Hall MD Primary Care Provider Active Tony Zapien UNDERWATER TRAPPER, UNDERWATER TRAPPER-C Attending Provider, Referring P rovider Active Dr. Leena Serra MD Other Provider Active Team Status: Inactive Member Role Status Dates Dr. Teagan Hall MD Primary Care Provider Active Iza Pagan Active Dr. Elias Arevalo MD Attending Provider, Referring Pro vider Active Team Status: Inactive Member Role Status Dates Dr. Teagan Hall MD Primary Care Provider, Referrin g Provider Active Mariely Petersen UNDERWATER TRAPPER, UNDERWATER TRAPPER-C Attending Provider Active Team Status: Active Member [...] Teagan Hall MD Primary Care Provider Active Tony Zapien UNDERWATER TRAPPER, UNDERWATER TRAPPER-C Attending Provider, Referring P rovider Active Team Status: Inactive Member Role Status Dates Dr. Teagan Hall MD Primary Care Provider Active Dr. Elias Arevalo MD Attending Provider, Referring Pro vider Active Team Status: Active Member Role Status Dates Dr. Teagan Hall MD Primary Care Provider Active Mariely Petersen UNDERWATER TRAPPER, UNDERWATER TRAPPER-C Attending Provider, Referrin g Provider Active Team Status: Active Member Role Status Dates Dr. Teagan Hall MD Primary Care Provider Active Mariely Petersen UNDERWATER TRAPPER, UNDERWATER TRAPPER-C Referring Provider, Other Pr ovider Active Dr. Ash Loving DO Attending Provider Active Team Status: Active Member Role Status Dates Dr. Teagan Hall MD Primary Care Provider Active Dr. Jesi Dunham MD Attending Provider Active Dr. Elias Arevalo MD Referring Provider Active Team Status: Inactive Member Role Status Dates Dr. Teagan Hall MD Primary Care Provider Active Mariely Petersen UNDERWATER TRAPPER, UNDERWATER TRAPPER-C Attending Provider, Referrin g Provider Active Team Status: Inactive Member Role Status Dates Dr. Teagan Hall MD Primary Care Provider, Referrin g Provider Active Dr. Aden Marquez MD Attending Provider Active Python Engineer Relationship Specialty Start Date End Date Teagan Hall [address] [facility] [address] [place] [address] PCP - General Family Medicine 09/16/22 Team [...] 01, 2024 End: May 01, 2024 Holli JOEL PA Attending Provider Active Start: May 01, [...] 2024 End: July 04, 2024 Sharad Londono UNDERWATER TRAPPER, UNDERWATER TRAPPER-C Other Provider Active Start : July 04, [...] 2024 End: July 28, 2024 Sharad Londono UNDERWATER TRAPPER, UNDERWATER TRAPPER-C Attending Provider Active S tart: July 28, 2024 End: July 28, 2024 Sharad Londono UNDERWATER TRAPPER, UNDERWATER TRAPPER-C Referring Provider Active S tart: July 28, [...] 2024 End: July 04, 2024 Sharad Londono UNDERWATER TRAPPER, UNDERWATER TRAPPER-C Other Provider Active Start : July 04, [...] 2024 End: July 28, 2024 Sharad Londono UNDERWATER TRAPPER, UNDERWATER TRAPPER-C Attending Provider Active S tart: July 28, 2024 End: July 28, 2024 Sharad Londono UNDERWATER TRAPPER, UNDERWATER TRAPPER-C Referring Provider Active S tart: July 28, [...] Start: November 30, 2024 Dr. Sean Thornton , Admit Provider Active Start: November 30, 2024 [...] Iza Pagan Attending Provider Active Start: A ug2024 End: December 04, 2024 Team Status: Active [...] Start: December 03, 2024 Dr. Sean Thornton , Admit Provider Active Start: December 03, 2024 Dr. Sean Thornton , Other Provider Active Start: December 03, 2024 [...] St art: December 04, 2024 Dr. Marga Butchre MD Other Provider Active Star t: December [...] Active St art: December 04, 2024 Dr. Marag Butcher MD Other Provider Active Star t: [...] Active St art: December 04, 2024 Dr. aMrga Butcher MD Other Provider Active Star t: [...] ve Start: December 05, 2024 Dr. Sean Mosteller , DO Admit Provider Active Start: December 05, [...] Team Status: Active Member Role/Relationship Status Dates Mcaie Oleary MD Primary Care Provider Active St [...] BE BASED ON THE PRIMARY CLINICAL RECORDS. [facility], [facility]. provides no warranty or guarantee of the accuracy or completeness of information in this document.
--- NOTE | 2025-01-01 15:20 | RAD_ITS ---
PROCEDURE: ANKLE MIN 3 VIEWS 01/01/2025 REASON FOR EXAM: R ANKLE PAIN TECHNIQUE: Procedure Code: RADANK Modality: DX Procedure: ANKLE MIN 3 VIEWS Laterality: Right COMPARISON: None. FINDINGS: No acute fracture or dislocation. Alignment is anatomic. Preserved joint spaces. No aggressive osseous lesion. No marked soft tissue swelling or radiopaque foreign body. RAD/Ankle min 3 Views IMPRESSION: No acute or aggressive osseous abnormality. Reading Location: [id number]
[2025-01-01 16:40] LABS: Uric Acid 6.8 mg/dL (2.6-6.0)
[2025-01-01 17:01] LABS: CRP < 3.00 mg/L (0.0-3.0); Procalcitonin 0.12 ng/mL (<=0.10)
--- NOTE | 2025-01-01 17:34 | PCM.HOSP.N ---
Hospitalist Note Ankle x-ray with no acute process, patient has elevated rheumatoid factor but normal ESR and CRP, uric acid slightly elevated but nonspecific given other imaging and laboratory findings, Pro-Aleksey is in a range that would make infection unlikely, will continue supportive measures as mentioned in H&P
[2025-01-01] MEDS: 0.9% Normal Saline (1000mL) 1,000 ML 50 ML IV (18:01)
[2025-01-01] MEDS: 0.9% Saline Lock 10 ML Syringe IV (20:03)
[2025-01-01] MEDS: APIXABAN 2.5 MG TABLET (WCH) PO (22:31)
[2025-01-01] MEDS: Arthritis Pain Compound 60 CLICK TUBE TOPICAL (22:32)
[2025-01-02 05:00] VITALS: BP 119/77; PULSE 60; RESP 16; TEMP 36.8; O2SAT 97
[2025-01-02 05:17] VITALS: BMI 21.5
[2025-01-02 06:57] LABS: Hematocrit 45.1 % (37-47); Hemoglobin 15.7 g/dL (12.0-15.0); Immature Granulocytes Count 0.030 X10^3/uL (0.0-0.0); Mean Corp Hgb Conc 34.8 g/dL (32-36); Mean Corpuscular Volume 97.6 fL (81-99); Mean Platelet Vol. 12.6 fl (6.2-12.0); NRBC Flagged by Analyzer 0 % (0-5); POSITIVE COUNT YES; POSITIVE DIFFERENTIAL YES; Platelet Count 54 K/mm3 (150-450); RBC Distribution Width CV 15.6 % (11.6-14.6); RBC Distribution Width SD 55.1 fl (35.1-43.9); Red Blood Count 4.62 M/mm3 (4.2-5.4); White Blood Count 7.2 K/mm3 (4.4-11.0)
[2025-01-02 07:31] LABS: AST(SGOT) 219 U/L (<=31); Alanine Aminotransfer ALT/SGPT 290 U/L (<=34); Albumin, Serum 4.1 g/dL (3.4-4.8); Alkaline Phosphatase 84 U/L (35-104); Anion Gap 13 (5-15); BUN 74 mg/dL (4-19); BUN/Creat Ratio 34.6 RATIO (10-20); Calcium,Total 8.8 mg/dL (7.6-11.0); Carbon Dioxide 17.6 mmol/L (21.0-32.0); Chloride 100 mmol/L (98-108); Estimated Creatinine Clearance 15.69 ml/min (50-250); Globulin 1.9 g/dL (2.2-4.2); Glucose 116 mg/dL (70-99); Magnesium 2.4 mg/dL (1.5-2.2); Potassium 4.5 mmol/L (3.3-5.1)
[2025-01-02 07:46] LABS: Prothrombin Time (Protime)PT. 32.7 SECONDS (11.7-14.9)
[2025-01-02] MEDS: BENZOCAINE/MENTHOL 1 LOZENGE 2 LOZENGE MUCOUS MEM (08:11)
[2025-01-02 08:12] VITALS: BP 119/81; PULSE 73; RESP 16; TEMP 36.1; O2SAT 97
[2025-01-02 08:17] VITALS: PULSE 73
[2025-01-02] MEDS: APIXABAN 2.5 MG TABLET (WCH) PO ×2 (08:17→21:03)
[2025-01-02] MEDS: Arthritis Pain Compound 60 CLICK TUBE TOPICAL ×2 (08:17→21:04)
--- NOTE | 2025-01-02 08:39 | PN.HOSP_ITS ---
Subjective Subjective Here for generalized weakness, her RF it is significantly higher than it has been in the past, will trial her on steroids. No issues overnight Objective Data Objective Data Vital Signs: Vital Signs Temp Pulse Resp BP Pulse Ox O2 Del Method 96.9 F L 73 16 119/81 H 97 Room Air 01/02/25 08:12 01/02/25 08:17 01/02/25 08:12 01/02/25 08:12 01/02/25 08:12 01/02/25 08:12 Oxygen Delivery Method Room Air Weight: 125 lb 7.088 oz Body Mass Index (BMI) 21.5 Intake & Output: Intake and Output for Last 24 Hours 01/01/25 01/02/25 01/03/25 03:59 03:59 03:59 Intake Total 1160 / 1160 800 / 800 Output Total 250 / 250 0 / 0 Balance 910 / 910 800 / 800 Lab / Micro Data 01/02/25 06:48 01/02/25 06:48 Labs: Laboratory Results - last 24 hr 01/01/25 09:38: WBC 10.7, RBC 4.86, Hgb 16.6 H, Hct 48.5 H, MCV 99.8 H, MCH 34.2 H, MCHC 34.2, RDW Std Deviation 56.5 H, RDW Coeff of Sharad 15.8 H, Plt Count 64 L, MPV 12.7 H, Immature Gran % (Auto) 0.500, Neut % (Auto) 79.6 H, Lymph % (Auto) 9.9 L, [place] % (Auto) 9.7, Eos % (Auto) 0.2, Baso % (Auto) 0.1, Absolute Neuts (auto) 8.5 H, Absolute Lymphs (auto) 1.06, Nucleated RBC % 0, PT Cancelled, INR Cancelled, APTT Cancelled, Sodium Cancelled, Potassium Cancelled, Chloride Cancelled, Carbon Dioxide Cancelled, Anion Gap Cancelled, BUN Cancelled, Creatinine Cancelled, Estim Creat Clear Calc Cancelled, Est GFR (MDRD) Non-Af Cancelled, BUN/Creatinine Ratio Cancelled, Glucose Cancelled, Calcium Cancelled, Magnesium Cancelled, Total Bilirubin Cancelled, AST Cancelled, ALT Cancelled, Alkaline Phosphatase Cancelled, Troponin T High Sens Cancelled, NT pro BNP II Cancelled, Total Protein Cancelled, Albumin Cancelled, Globulin Cancelled, Albumin/Globulin Ratio Cancelled, TSH Cancelled, Free T4 Cancelled 01/01/25 09:46: Urine Color Yellow, Urine Clarity Sl. Cloudy, Urine pH 5.0, Ur Specific [place] 1.020, Urine Protein 100 H, Urine Glucose (UA) 250 H, Urine Ketones Negative, Urine Occult Blood 10 H, Urine Nitrite Negative, Urine Bilirubin Negative, Urine Urobilinogen 1 H, Ur Leukocyte Esterase Negative, Urine RBC 0-5 SEEN, Urine WBC 0-5 SEEN, Ur Squamous Epith Cells 0-5 SEEN, Urine Bacteria RARE, Hyaline Casts 0-5 SEEN, Urine Mucus 1+ 01/01/25 10:21: PT Cancelled, INR Cancelled, APTT Cancelled 01/01/25 10:45: PT 34.4 H, INR 3.3, APTT 30.4, Sodium 132 L, Potassium 5.0, Chloride 101, Carbon Dioxide 13.9 L, Anion Gap 16 H, BUN 74 H, Creatinine 2.15 H , Estim Creat Clear Calc 16.28 L, Est GFR (MDRD) Non-Af 22 L, BUN/Creatinine Ratio 34.5 H, Glucose 81, Calcium 9.0, Magnesium 2.5 H, Total Bilirubin 2.39 H, AST 245 H, ALT 278 H, Alkaline Phosphatase 82, Total Creatine Kinase 122, T roponin T High Sens 49 H D, [place] [address] H, Total Protein 6.3, Albumin 4.1, Globulin 2.1 L, Albumin/Globulin Ratio 1.9, Lipase 44, TSH 0.987, Free T4 2.50 H 01/01/25 13:33: Troponin T Hi Sens 2 Hr Cancelled 01/01/25 14:05: Troponin T Hi Sens 2 Hr 49 H 01/01/25 16:01: ESR < 1, Uric Acid 6.8 H, C-React Prot Ext Range < 3.00, P rocalcitonin 0.12 H, Rheumatoid Factor 379.0 H 01/02/25 06:48: WBC 7.2, RBC 4.62, Hgb 15.7 H, Hct 45.1, MCV 97.6, MCH 34.0 H, MCHC 34.8, RDW Std Deviation 55.1 H, RDW Coeff of [place] 15.6 H, Plt Count 54 L, M PV 12.6 H, Immature Gran % (Auto) 0.400, Neut % (Auto) 84.3 H, Lymph % (Auto) 7.5 L, [place] % (Auto) 7.1, Eos % (Auto) 0.4, Baso % (Auto) 0.3, Absolute Neuts (auto) 6.1, Absolute Lymphs (auto) 0.54 L, Nucleated RBC % 0, PT 32.7 H, INR 3.1, Sodium 131 L, Potassium 4.5, Chloride 100, Carbon Dioxide 17.6 L, Anion Gap 13, BUN 74 H, Creatinine 2.14 H, Estim Creat Clear Calc 15.69 L, Est GFR (MDRD) Non-Af 22 L, BUN/Creatinine Ratio 34.6 H, Glucose 116 H, Calcium 8.8, Magnesium 2.4 H, Total Bilirubin 1.86 H, AST 219 H, ALT 290 H, Alkaline Phosphatase 84, Total Protein 6.0, Albumin 4.1, Globulin 1.9 L, Albumin/Globulin Ratio 2.1 Radiography Diagnostic Testing: Radiology Impression Chest X-Ray 01/01/25 09:21 IMPRESSION: Subsegmental atelectasis and small volume pleural fluid right lung base. Cardiac enlargement. Reading Location: [facility] Abdomen Ultrasound 01/01/25 11:47 IMPRESSION: 1. Nonspecific gallbladder wall thickening without visualized cholelithiasis or positive reported sonographic Romero's sign to confirm acute cholecystitis, although this should be confirmed by clinician exam. In addition to acute/chronic cholecystitis, gallbladder wall thickening can also be seen in the setting of 3rd spacing, venous congestion, or may be reactive to a primarily hepatic process amongst other etiologies. Correlate with presentation/exam and if there is clinical ambiguity, consider HIDA. 2. Question lobulated hepatic contours as may be seen in chronic liver disease. Correlate with clinical and laboratory evaluation. 3. At least trace to small volume nonspecific perihepatic free fluid. Trace pericholecystic fluid may be a related finding. 4. Additional description as above. Reading Location: [facility] Ankle X-Ray 01/01/25 15:20 IMPRESSION: No acute or aggressive osseous abnormality. Reading Location: [facility] Physical Exam Narrative General: Alert, Oriented x3, Cooperative, No apparent distress HEENT: Atraumatic, PERRLA, EOMI, Normocephalic Oral: Moist Mucosa Neck: Supple, No JVD Lungs: Diminished, Normal air movement, No rhonchi, No wheeze, No rales Cardiovascular: Regular rate, Regular Rhythm, Normal S1, Normal S2, No murmurs Abdomen: Soft, Non Tender, Non-Distended, No Hepato-splenomegaly Extremities: No edema, Capillary Refill Less than 3 Seconds Skin: No rashes, No breakdown Musculoskeletal: No Tenderness to Palpation of Joints or Extremities, hands with significant RA deformities Neurological: No focal neurological deficits, moves all extremities, sensation intact Psych/Mental Status: Normal Affect, Appropriate Assessment & Plan Assessment/Plan (1) ASHLI (acute kidney injury): (2) Generalized weakness: (3) Right ankle pain: PLAN: Plan 1. Generalized weakness and debility secondary to rheumatoid arthritis with possible flare/ASHLI with hyponatremia ? Continue with IV fluids, this is potentially cardiorenal will hold her home medications ? PT/OT ? Will trial her on low-dose prednisone as her rheumatoid factor significantly elevated from her previous level about 10 years ago ? She was having right ankle pain though she says that is much better now and the x-ray was unremarkable ? Creatinine is slightly down to 2.14, will continue with IV fluids ? Sodium today is 131 we will monitor 2. Elevated LFTs ? There is concern that this could be either due to congestion from CHF versus amiodarone and her medications for rheumatoid arthritis ? Will hold her amiodarone ? Repeat LFTs are equivocal 3. Chronic systolic CHF/paroxysmal A-fib with pacemaker and complete heart block/CAD status post stent/essential HTN/HLD ? EF is 35% with moderate LV systolic dysfunction on echocardiogram in the beginning of this month ? Continue to hold Lasix, amiodarone, Farxiga secondary to ASHLI and her elevated LFTs ? Will monitor make adjustments as necessary ? Continue with metoprolol and Eliquis ? Elevated troponin is of no significance 4. Thrombocytopenia ? Down to 54,000, will monitor ? Continue with Eliquis 5. Hypothyroidism ? Stable ? Continue with Synthroid DVT: Eliquis Charges/Coding Visit Charges Inpatient E&M: 30152 Subs Hosp L2
--- NOTE | 2025-01-02 08:55 | PN.CARD_ITS ---
Subjective Subjective Patient reports she is feeling a little better today. She was sitting up in the bed. Patient denies any chest pain. Telemetry shows that her pacemaker is pacing the atrium and ventricle in sequence at 60 bpm. LFTs remain elevated renal function is stable. Patient does report that she does not have significant lower extremity edema and she is breathing easier. Objective Data Skin noted to be hyperpigmented. Vital Signs: Vital Signs Temp Pulse Resp BP Pulse Ox O2 Del Method 96.9 F L 73 16 119/81 H 97 Room Air 01/02/25 08:12 01/02/25 08:17 01/02/25 08:12 01/02/25 08:12 01/02/25 08:12 01/02/25 08:12 Oxygen Delivery Method Room Air Weight: 125 lb 7.088 oz Body Mass Index (BMI) 21.5 Intake & Output: Intake and Output for Last 24 Hours 12/31/24 01/01/25 01/02/25 23:59 23:59 23:59 Intake Total 1160 / 1160 800 / 800 Output Total 250 / 250 0 / 0 Balance 910 / 910 800 / 800 Lab / Micro Data 01/02/25 06:48 01/02/25 06:48 Labs: Laboratory Results - last 24 hr 01/01/25 09:38: WBC 10.7, RBC 4.86, Hgb 16.6 H, Hct 48.5 H, MCV 99.8 H, MCH 34.2 H, MCHC 34.2, RDW Std Deviation 56.5 H, RDW Coeff of Sharad 15.8 H, Plt Count 64 L, MPV 12.7 H, Immature Gran % (Auto) 0.500, Neut % (Auto) 79.6 H, Lymph % (Auto) 9.9 L, [place] % (Auto) 9.7, Eos % (Auto) 0.2, Baso % (Auto) 0.1, Absolute Neuts (auto) 8.5 H, Absolute Lymphs (auto) 1.06, Nucleated RBC % 0, PT Cancelled, INR Cancelled, APTT Cancelled, Sodium Cancelled, Potassium Cancelled, Chloride Cancelled, Carbon Dioxide Cancelled, Anion Gap Cancelled, BUN Cancelled, Creatinine Cancelled, Estim Creat Clear Calc Cancelled, Est GFR (MDRD) Non-Af Cancelled, BUN/Creatinine Ratio Cancelled, Glucose Cancelled, Calcium Cancelled, Magnesium Cancelled, Total Bilirubin Cancelled, AST Cancelled, ALT Cancelled, Alkaline Phosphatase Cancelled, Troponin T High Sens Cancelled, NT pro BNP II Cancelled, Total Protein Cancelled, Albumin Cancelled, Globulin Cancelled, Albumin/Globulin Ratio Cancelled, TSH Cancelled, Free T4 Cancelled 01/01/25 09:46: Urine Color Yellow, Urine Clarity Sl. Cloudy, Urine pH 5.0, Ur Specific [place] 1.020, Urine Protein 100 H, Urine Glucose (UA) 250 H, Urine Ketones Negative, Urine Occult Blood 10 H, Urine Nitrite Negative, Urine Bilirubin Negative, Urine Urobilinogen 1 H, Ur Leukocyte Esterase Negative, Urine RBC 0-5 SEEN, Urine WBC 0-5 SEEN, Ur Squamous Epith Cells 0-5 SEEN, Urine Bacteria RARE, Hyaline Casts 0-5 SEEN, Urine Mucus 1+ 01/01/25 10:21: PT Cancelled, INR Cancelled, APTT Cancelled 01/01/25 10:45: PT 34.4 H, INR 3.3, APTT 30.4, Sodium 132 L, Potassium 5.0, Chloride 101, Carbon Dioxide 13.9 L, Anion Gap 16 H, BUN 74 H, Creatinine 2.15 H , Estim Creat Clear Calc 16.28 L, Est GFR (MDRD) Non-Af 22 L, BUN/Creatinine Ratio 34.5 H, Glucose 81, Calcium 9.0, Magnesium 2.5 H, Total Bilirubin 2.39 H, AST 245 H, ALT 278 H, Alkaline Phosphatase 82, Total Creatine Kinase 122, T roponin T High Sens 49 H D, [place] [address] H, Total Protein 6.3, Albumin 4.1, Globulin 2.1 L, Albumin/Globulin Ratio 1.9, Lipase 44, TSH 0.987, Free T4 2.50 H 01/01/25 13:33: Troponin T Hi Sens 2 Hr Cancelled 01/01/25 14:05: Troponin T Hi Sens 2 Hr 49 H 01/01/25 16:01: ESR < 1, Uric Acid 6.8 H, C-React Prot Ext Range < 3.00, P rocalcitonin 0.12 H, Rheumatoid Factor 379.0 H 01/02/25 06:48: WBC 7.2, RBC 4.62, Hgb 15.7 H, Hct 45.1, MCV 97.6, MCH 34.0 H, MCHC 34.8, RDW Std Deviation 55.1 H, RDW Coeff of Sharad 15.6 H, Plt Count 54 L, M PV 12.6 H, Immature Gran % (Auto) 0.400, Neut % (Auto) 84.3 H, Lymph % (Auto) 7.5 L, [place] % (Auto) 7.1, Eos % (Auto) 0.4, Baso % (Auto) 0.3, Absolute Neuts (auto) 6.1, Absolute Lymphs (auto) 0.54 L, Nucleated RBC % 0, PT 32.7 H, INR 3.1, Sodium 131 L, Potassium 4.5, Chloride 100, Carbon Dioxide 17.6 L, Anion Gap 13, BUN 74 H, Creatinine 2.14 H, Estim Creat Clear Calc 15.69 L, Est GFR (MDRD) Non-Af 22 L, BUN/Creatinine Ratio 34.6 H, Glucose 116 H, Calcium 8.8, Magnesium 2.4 H, Total Bilirubin 1.86 H, AST 219 H, ALT 290 H, Alkaline Phosphatase 84, Total Protein 6.0, Albumin 4.1, Globulin 1.9 L, Albumin/Globulin Ratio 2.1 Rhythm Strip Rhythm Strip: AV paced rhythm Rate: 60 Cardiology Labs/Tests 01/01/25 09:38: WBC 10.7, RBC 4.86, Hgb 16.6 H, Hct 48.5 H, MCV 99.8 H, MCH 34.2 H, MCHC 34.2, Plt Count 64 L, MPV 12.7 H, Immature Gran % (Auto) 0.500, Neut % (Auto) 79.6 H, Lymph % (Auto) 9.9 L, [place] % (Auto) 9.7, Eos % (Auto) 0.2, Baso % (Auto) 0.1, Absolute Neuts (auto) 8.5 H, Nucleated RBC % 0, PT Cancelled, INR Cancelled, APTT Cancelled, Sodium Cancelled, Potassium Cancelled, Chloride Cancelled, Carbon Dioxide Cancelled, Anion Gap Cancelled, BUN Cancelled, Creatinine Cancelled, Est GFR (MDRD) Non-Af Cancelled, BUN/Creatinine Ratio Cancelled, Glucose Cancelled, Calcium Cancelled, Magnesium Cancelled, Total Bilirubin Cancelled 01/01/25 09:46: Urine Color Yellow, Urine Clarity Sl. Cloudy, Urine pH 5.0, Ur Specific [place] 1.020, Urine Protein 100 H, Urine Glucose (UA) 250 H, Urine Ketones Negative, Urine Occult Blood 10 H, Urine Nitrite Negative, Urine Bilirubin Negative, Urine Urobilinogen 1 H, Ur Leukocyte Esterase Negative, Urine RBC 0-5 SEEN, Urine WBC 0-5 SEEN 01/01/25 10:21: PT Cancelled, INR Cancelled, APTT Cancelled 01/01/25 10:45: PT 34.4 H, INR 3.3, APTT 30.4, Sodium 132 L, Potassium 5.0, Chloride 101, Carbon Dioxide 13.9 L, Anion Gap 16 H, BUN 74 H, Creatinine 2.15 H , Est GFR (MDRD) Non-Af 22 L, BUN/Creatinine Ratio 34.5 H, Glucose 81, Calcium 9.0, Magnesium 2.5 H, Total Bilirubin 2.39 H 01/01/25 16:01: Uric Acid 6.8 H 01/02/25 06:48: WBC 7.2, RBC 4.62, Hgb 15.7 H, Hct 45.1, MCV 97.6, MCH 34.0 H, MCHC 34.8, Plt Count 54 L, MPV 12.6 H, Immature Gran % (Auto) 0.400, Neut % (Auto) 84.3 H, Lymph % (Auto) 7.5 L, [place] % (Auto) 7.1, Eos % (Auto) 0.4, Baso % (Auto) 0.3, Absolute Neuts (auto) 6.1, Nucleated RBC % 0, PT 32.7 H, INR 3.1, S odium 131 L, Potassium 4.5, Chloride 100, Carbon Dioxide 17.6 L, Anion Gap 13, B UN 74 H, Creatinine 2.14 H, Est GFR (MDRD) Non-Af 22 L, BUN/Creatinine Ratio 34.6 H, Glucose 116 H, Calcium 8.8, Magnesium 2.4 H, Total Bilirubin 1.86 H Rhythm: EKG: ECHO: Stress Test: Cardiac Cath: PCI: CT Surgery: Holter monitor: EPS: PPM: CXR: Chest CT Scan: Radiography Diagnostic Testing: Radiology Impression Chest X-Ray 01/01/25 09:21 IMPRESSION: Subsegmental atelectasis and small volume pleural fluid right lung base. Cardiac enlargement. Reading Location: [facility] Abdomen Ultrasound 01/01/25 11:47 IMPRESSION: 1. Nonspecific gallbladder wall thickening without visualized cholelithiasis or positive reported sonographic Romero's sign to confirm acute cholecystitis, although this should be confirmed by clinician exam. In addition to acute/chronic cholecystitis, gallbladder wall thickening can also be seen in the setting of 3rd spacing, venous congestion, or may be reactive to a primarily hepatic process amongst other etiologies. Correlate with presentation/exam and if there is clinical ambiguity, consider HIDA. 2. Question lobulated hepatic contours as may be seen in chronic liver disease. Correlate with clinical and laboratory evaluation. 3. At least trace to small volume nonspecific perihepatic free fluid. Trace pericholecystic fluid may be a related finding. 4. Additional description as above. Reading Location: [facility] Ankle X-Ray 01/01/25 15:20 IMPRESSION: No acute or aggressive osseous abnormality. Reading Location: [facility] Physical Exam Narrative Frail-appearing Const alert and oriented x3 HEENT normocephalic Eyes EOMs intact bilaterally Neck no carotid bruits Neck Narrative: JVD noted at the angle of the jaw at 30 degrees. Lymph Lymphatic: lymphedema mild (Right elbow and upper arm area. Patient reports right mastectomy.) Resp normal respiratory effort and clear to auscultation bilaterally Cardio Rate: regular rate Rhythm: regular rhythm Heart Sounds: S1 normal and S2 normal; Negative for click, gallop or murmur Extremity Extremity Narrative: Hyperpigmentation in bilateral lower extremities. General Extremity: edema bilateral lower extremity Details: trace Neuro Neuro Narrative: Alert and oriented does seem to be slow on recalling medical history but does recall it. Psych mental status grossly normal Assessment & Plan Assessment/Plan (1) Pacemaker: PLAN: Currently the patient is in AV paced rhythm. Atrial fibrillation appears to be controlled at this point in time. Patient remains on Eliquis 2.5 mg twice daily given her age and renal function. (2) Atrial fibrillation: QUALIFIERS: Atrial fibrillation type: paroxysmal Qualified Code(s): I48.0 - Paroxysmal atrial fibrillation PLAN: Patient currently is in an AV paced rhythm. Heart rate is 60 bpm. She is on beta-kemal for rate control. And Eliquis for oral anticoagulation. Last hemoglobin was 15.7 platelet count is 54,000. (3) Congestive heart failure (CHF): QUALIFIERS: Heart failure type: systolic Heart failure chronicity: chronic Qualified Code(s): I50.22 - Chronic systolic (congestive) heart failure PLAN: Patient is saturating 97% on room air. BNP is elevated at 30,000 on admission however she does have a history of atrial fibrillation and was in acute on chronic renal failure at the time. December 02, 2024 echocardiogram showed an EF of 35% with a D-shaped septum in diastole. There is also moderate biatrial enlargement. There was no significant mitral or tricuspid regurgitation documented. The patient is on guideline directed medical therapy with beta-kemal therapy, Farxiga, furosemide, spironolactone. Spironolactone has been held given the patient's acute on chronic renal insufficiency. Last blood work showed a sodium 131 potassium 4.5 chloride 100 bicarb 17.6 which is increasing BUN 74 creatinine 2.14 which is stable with a GFR of 22. (4) Anticoagulant long-term use: PLAN: Patient is on long-term Eliquis use at 2.5 mg twice daily given her atrial fibrillation. (5) ASHLI (acute kidney injury): PLAN: As noted above GFR is stable at 22 previously had been in the 35 range. Recommend continuing holding spironolactone. (6) Atherosclerosis of coronary artery of [place] heart without angina pectoris: QUALIFIERS: Coronary Disease-Associated Artery/Lesion type: [place] artery Qualified Code(s): I25.10 - Atherosclerotic heart disease of [place] coronary artery without angina pectoris PLAN: Patient has known atherosclerotic coronary disease status post remote STEMI. She has segmental wall motion abnormalities on her echocardiogram done December 02, 2024 with an EF of 35%. (7) Elevated LFTs: PLAN: LFTs were elevated AST 243 down to 219 today. ALT was 278 up to 290 today. Patient's imaging showed lobular changes in her liver consistent with chronic liver disease potentially. PLAN: Plan 1. Recommend continuing current medical therapy for LV dysfunction. 2. Will continue Eliquis as tolerated hemoglobin is 15.7 however platelet count is only 54,000. 3. Will monitor with you as directed. Please call if further assistance is needed. 4. Once discharged patient should follow-up with Dr. Jacobs her primary tearer press clipping in the [facility]. Charges/Coding Visit Charges Inpatient E&M: 88731 Subs Hosp L2
[2025-01-02] MEDS: 0.9% Normal Saline (1000mL) 1,000 ML 75 ML IV (10:55)
--- NOTE | 2025-01-02 11:09 | CASEMGMT ---
Social Work Living Situation: Patient lives at home alone. She has 3 steps into the home. They have her bedroom on the first floor of the home. ADL's/Prior level of functioning: Patient can dress herself. Her daughter helps with showering, house cleaning, grocery shopping and getting into bed. She reported her daughter works 3 miles away from her home. Insurance: [facility] Pharmacy: [facility] Primary Care Doctor: Dr. Oleary Speciality doctors: Engineering Technician- Dr. Serra, Oncologist- Dr. Jonas, Relay Shop Tester- Dr. Arevalo Advanced directives: Her daughter is Healthcare POA and her oldest son is financial POA. LNOK: Patient 1 daughter and 3 sons. All but one son lives in the area. Transportation: Her daughter helps with transportation. DME: RW, tub bench, WC, toilet rails Community Services: Her jain members help if needed. senior care/home health history: No HH or SNF history Mental Health: Forty year ago she experienced depression. She does not take medication currently. Substance abuse history: no history Assessment: Patient reported her children help her. She reported her children are looking at skilled rehab facilities for her at discharge. SW offered to provide the patient a list of SNF's. Patient reported can dress herself. Her daughter helps with showering, house cleaning, grocery shopping and getting her into bed. She reported her daughter works 3 miles away from her home. She has 3 sons and 1 daughter. All lives in the area except 1 son. RODDY Lopez
--- NOTE | 2025-01-02 11:48 | CASEMGMT ---
Discharge Planning A list of SNF providers including quality and resource use data and consistent with the patient's preferred geographic region, medical needs, and insurance network was created in [facility] Guide.? This list was provided to the SW. Jolynn Valencia Discharge Planning Asst.
--- NOTE | 2025-01-02 11:54 | CASEMGMT ---
SW A list of SNF's providers including quality and resource use data and consistent with the patient's preferred geographic region, medical needs, and insurance network was created in [employer] Guide. This list was provided to the patient. GELY Pires
[2025-01-02 14:32] VITALS: BP 119/82; PULSE 60; RESP 16; TEMP 36.9; O2SAT 95
[2025-01-02 21:01] VITALS: BP 112/89; PULSE 60; RESP 18; TEMP 36.3; O2SAT 98
[2025-01-02 21:02] VITALS: BP 112/89; PULSE 60
[2025-01-03] MEDS: 0.9% Normal Saline (1000mL) 1,000 ML 75 ML IV ×2 (00:38→13:34)
[2025-01-03 03:42] VITALS: BP 112/86; PULSE 60; RESP 18; TEMP 36.2; O2SAT 93
[2025-01-03 05:11] VITALS: BMI 21.2
[2025-01-03 06:05] LABS: Hematocrit 46.4 % (37-47); Hemoglobin 15.9 g/dL (12.0-15.0); Immature Granulocytes Count 0.050 X10^3/uL (0.0-0.0); Mean Corp Hgb Conc 34.3 g/dL (32-36); Mean Corpuscular Volume 98.1 fL (81-99); Mean Platelet Vol. 13.5 fl (6.2-12.0); NRBC Flagged by Analyzer 0 % (0-5); POSITIVE COUNT YES; POSITIVE DIFFERENTIAL YES; RBC Distribution Width CV 15.7 % (11.6-14.6); RBC Distribution Width SD 55.8 fl (35.1-43.9); Red Blood Count 4.73 M/mm3 (4.2-5.4); White Blood Count 8.9 K/mm3 (4.4-11.0)
[2025-01-03 06:11] LABS: Differential Indicated SCAN CRITERIA MET; Platelet Count 41 K/mm3 (150-450)
[2025-01-03 06:44] LABS: Anion Gap 17 (5-15); BUN 74 mg/dL (4-19); BUN/Creat Ratio 39.3 RATIO (10-20); Calcium,Total 8.4 mg/dL (7.6-11.0); Carbon Dioxide 13.6 mmol/L (21.0-32.0); Chloride 100 mmol/L (98-108); Estimated Creatinine Clearance 17.86 ml/min (50-250); Glucose 112 mg/dL (70-99); Potassium 5.1 mmol/L (3.3-5.1)
--- NOTE | 2025-01-03 07:45 | PN.HOSP_ITS ---
Reason for Visit Chief Complaint: Generalized weakness and light headedness Subjective Subjective Patient is an 89-year-old lady who presented to the emergency department with progressive generalized weakness as well as lightheadedness. An assessment of possible rheumatoid arthritis flareup involving the ankle was made. Patient was also found to have low platelet count as well as abnormal LFTs admitted to monitored bed for further management Objective Data Objective Data Vital Signs: Vital Signs Temp Pulse Resp BP Pulse Ox O2 Del Method 97.1 F L 60 18 112/86 H 93 Room Air 01/03/25 03:42 01/03/25 03:42 01/03/25 03:42 01/03/25 03:42 01/03/25 03:42 01/03/25 06:41 Oxygen Delivery Method Room Air Weight: 56.5 kg Body Mass Index (BMI) 21.2 Intake & Output: Intake and Output for Last 24 Hours 01/01/25 01/02/25 01/03/25 23:59 23:59 23:59 Intake Total 1160 / 1160 920 / 920 1060 / 1060 Output Total 250 / 250 0 / 0 Balance 910 / 910 920 / 920 1060 / 1060 Lab / Micro Data 01/03/25 05:10 01/03/25 05:10 Labs: Laboratory Results - last 24 hr 01/02/25 06:48: PT 32.7 H, INR 3.1 01/03/25 05:10: WBC 8.9, RBC 4.73, Hgb 15.9 H, Hct 46.4, MCV 98.1, MCH 33.6 H, MCHC 34.3, RDW Std Deviation 55.8 H, RDW Coeff of Sharad 15.7 H, Plt Count 41 L*, M PV 13.5 H, Immature Gran % (Auto) 0.600, Neut % (Auto) 90.7 H, Lymph % (Auto) 4.2 L, [place] % (Auto) 4.3, Eos % (Auto) 0.0, Baso % (Auto) 0.2, Absolute Neuts (auto) 8.0 H, Absolute Lymphs (auto) 0.37 L, Nucleated RBC % 0, Diff Path Review August, Sodium 130 L, Potassium 5.1, Chloride 100, Carbon Dioxide 13.6 L, A nion Gap 17 H, BUN 74 H, Creatinine 1.88 H, Estim Creat Clear Calc 17.86 L, Est GFR (MDRD) Non-Af 25 L, BUN/Creatinine Ratio 39.3 H, Glucose 112 H, Calcium 8.4 Rhythm Strip Rhythm Strip: AV paced rhythm Rate: 60 Physical Exam Narrative GENERAL: cooperative HEENT: Atraumatic; normocephalic EYES; Anicteric, Normal Conjunctiva NECK; supple, normal thyroid, RESPIRATORY: Diminished to auscultation CARDIOVASCULAR: iregular S1 S2, GI: soft, normoactive bowel sounds, : No Renal angle tenderness; EXTREMITIES: No edema, no clubbing, MUSCULOSKELETAL: no muscle wasting NEURO: Awake; no lateralizing signs. SKIN: No Rash PSYCH; Flat affect Assessment & Plan Assessment/Plan (1) ASHLI (acute kidney injury): (2) Generalized weakness: (3) Right ankle pain: PLAN: Plan Patient is an 89-year-old lady who presented to the emergency department with progressive generalized weakness as well as lightheadedness. An assessment of possible rheumatoid arthritis flareup involving the ankle was made. Patient was also found to have low platelet count as well as abnormal LFTs admitted to monitored bed for further management 1. Rheumatoid arthritis flareup involving the ankle ? Patient responded to prednisone trial 2. Abnormal LFTs ? Suspected to be side effect of patient tocilizumab in addition to her low platelet count. Monitoring with daily hepatic function test as well as CBC with differential 3. Thrombocytopenia ? Suspected side effects of tocilizumab. 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 Status post pacemaker placement 5. Paroxysmal atrial fibrillation ? Rate controlled on systemic anticoagulation with apixaban held given the fact that patient platelet count is less than 60,000 6. Chronic heart failure with reduced ejection fraction ? Last echo from 724 demonstrated EF of 35% patient remains on guideline directed medical therapy 7. Hypertension ? Blood pressure controlled, home medications continued with dose adjustment as needed 8 Hypothyroidism ? Patient is on levothyroxine home dose continued 9. History of breast cancer s/p mastectomy and chemotherapy ? Follows with oncology, 10. DVT prophylaxis ? Patient is on apixaban which is currently being held given her low platelet count Time spent in the patient's overall evaluation,decision-making process, review of diagnostic data, adjustment of management, discussion with other providers, nursing nursing and ancillary staff involved in patient's care documentation, 36 Minutes Charges/Coding Visit Charges Inpatient E&M: 70873 Subs Hosp L2
--- NOTE | 2025-01-03 08:05 | PN.CARD_ITS ---
Subjective Subjective Patient resting comfortably in the seated position in bed. She denies any resting shortness of breath PND. She does report shortness of breath with minimal activity getting back and forth from the bathroom. Platelet count has dropped to 41,000. Patient has no obvious bleeding. However she is on Eliquis for her paroxysmal atrial fibrillation. Telemetry shows that she is in an AV paced rhythm and there is been no evidence of atrial fibrillation in the last 24-48 hours. Objective Data Vital Signs: Vital Signs Temp Pulse Resp BP Pulse Ox O2 Del Method 97.1 F L 60 18 112/86 H 93 Room Air 01/03/25 03:42 01/03/25 03:42 01/03/25 03:42 01/03/25 03:42 01/03/25 03:42 01/03/25 06:41 Oxygen Delivery Method Room Air Weight: 124 lb 8.979 oz Body Mass Index (BMI) 21.2 Intake & Output: Intake and Output for Last 24 Hours 01/01/25 01/02/25 01/03/25 23:59 23:59 23:59 Intake Total 1160 / 1160 920 / 920 1060 / 1060 Output Total 250 / 250 0 / 0 Balance 910 / 910 920 / 920 1060 / 1060 Lab / Micro Data Attestation: I reviewed the patient's lab results. 01/03/25 05:10 01/03/25 05:10 Labs: Laboratory Results - last 24 hr 01/03/25 05:10: WBC 8.9, RBC 4.73, Hgb 15.9 H, Hct 46.4, MCV 98.1, MCH 33.6 H, MCHC 34.3, RDW Std Deviation 55.8 H, RDW Coeff of Sharad 15.7 H, Plt Count 41 L*, M PV 13.5 H, Immature Gran % (Auto) 0.600, Neut % (Auto) 90.7 H, Lymph % (Auto) 4.2 L, [place] % (Auto) 4.3, Eos % (Auto) 0.0, Baso % (Auto) 0.2, Absolute Neuts (auto) 8.0 H, Absolute Lymphs (auto) 0.37 L, Nucleated RBC % 0, Diff Path Review May , Sodium 130 L, Potassium 5.1, Chloride 100, Carbon Dioxide 13.6 L, A nion Gap 17 H, BUN 74 H, Creatinine 1.88 H, Estim Creat Clear Calc 17.86 L, Est GFR (MDRD) Non-Af 25 L, BUN/Creatinine Ratio 39.3 H, Glucose 112 H, Calcium 8.4 Rhythm Strip Rhythm Strip: AV paced rhythm Rate: 60 Cardiology Labs/Tests 01/03/25 05:10: WBC 8.9, RBC 4.73, Hgb 15.9 H, Hct 46.4, MCV 98.1, MCH 33.6 H, MCHC 34.3, Plt Count 41 L*, MPV 13.5 H, Immature Gran % (Auto) 0.600, Neut % (Auto) 90.7 H, Lymph % (Auto) 4.2 L, [place] % (Auto) 4.3, Eos % (Auto) 0.0, Baso % (Auto) 0.2, Absolute Neuts (auto) 8.0 H, Nucleated RBC % 0, Sodium 130 L, Potassium 5.1, Chloride 100, Carbon Dioxide 13.6 L, Anion Gap 17 H, BUN 74 H, C reatinine 1.88 H, Est GFR (MDRD) Non-Af 25 L, BUN/Creatinine Ratio 39.3 H, G lucose 112 H, Calcium 8.4 Rhythm: EKG: ECHO: Stress Test: Cardiac Cath: PCI: CT Surgery: Holter monitor: EPS: PPM: CXR: Chest CT Scan: Physical Exam Narrative Frail-appearing white female resting comfortably in the seated position in bed. Const alert and oriented x3 HEENT normocephalic Eyes EOMs intact bilaterally Neck no JVD Neck Narrative: No JVD at 90 degrees. Resp normal respiratory effort Resp Narrative: Clear to auscultation anteriorly. Cardio Rate: regular rate Rhythm: regular rhythm Heart Sounds: S1 normal and S2 normal; Negative for click, gallop or murmur Skin Skin Narrative: Hyperpigmentation. Neuro Neuro Narrative: Alert and oriented x 3 Psych mental status grossly normal Assessment & Plan Assessment/Plan (1) Elevated LFTs: PLAN: Evaluation per the primary service. Amiodarone has been discontinued. (2) Pacemaker: PLAN: Patient remains in AV paced rhythm. Heart rate is 60 bpm vital signs are stable. (3) Anticoagulant long-term use: PLAN: Patient is on long-term Eliquis at 2.5 mg twice daily given her renal function and age. I would recommend we hold that given her platelet count dropping in the 41,000 range. If it recovers above 60,000 the Eliquis should be reinstituted as long as there is no obvious bleeding. (4) AF (paroxysmal atrial fibrillation): PLAN: Patient remains in an AV paced rhythm there is no evidence of atrial fibrillation over the last 48 hours. Amiodarone has been discontinued due to elevated LFTs and Eliquis held due to thrombocytopenia. PLAN: Plan 1. Will defer further workup of thrombocytopenia and elevated LFTs to the primary service. 2. Continue to hold Eliquis as long as platelet count is under 60,000. 3. Have discontinued amiodarone due to elevated LFTs. 4. Please call the [facility] if further assistance is needed. Dr. Fraser will be assuming the service tomorrow. Charges/Coding Visit Charges Inpatient E&M: 56473 Subs Hosp L2
[2025-01-03 08:16] VITALS: BP 112/74; PULSE 60; RESP 18; TEMP 36.6; O2SAT 96
[2025-01-03 08:24] VITALS: PULSE 60
[2025-01-03] MEDS: Arthritis Pain Compound 60 CLICK TUBE TOPICAL ×2 (08:25→20:38)
--- NOTE | 2025-01-03 10:24 | CASEMGMT ---
Social Work BALDO spoke with the patent and granddaughter regarding a discharge plan. Patient reported her and her children think she needs to discharge to a rehab facility. [facility]. SW explained her insurance will need to approve her going to a rehab facility if they are able to accept her. BALDO spoke with the patient regarding home health. Patient feels she is too weak to be at home by herself. GELY Lopez
[2025-01-03 13:22] LABS: AST(SGOT) 240 U/L (<=31); Alanine Aminotransfer ALT/SGPT 363 U/L (<=34); Albumin, Serum 3.8 g/dL (3.4-4.8); Alkaline Phosphatase 81 U/L (35-104); Bilirubin, Direct 0.97 mg/dL (0.00-0.30); Globulin 2.0 g/dL (2.2-4.2)
--- NOTE | 2025-01-03 13:26 | CASEMGMT ---
Social Work SW spoke with the patient and her daughter Maya. The patient and her daughter would prefer TCU for rehab. SW spoke with the patient and daughter about the insurance company will need to approve inpatient rehab services. BALDO spoke with them about HH or [facility]MED[facility] as possibilities if the patient discharges home. GELY Lopez
[2025-01-03 16:04] VITALS: BP 93/75; PULSE 60; RESP 18; TEMP 36.6; O2SAT 98
--- NOTE | 2025-01-03 16:30 | CASEMGMT ---
JUDE CORTEZ readmission note: Index admission: 12/02-12/06 weakness and dizziness w/falls. Pt w/hx of PAF, CAD w/PCI, RA, HF w/reduced EF, pacemaker, hypothyroidism. Etiology of weakness & dizziness not clear. Initially pt was thought to be orthostatic, but was rehydrated w/IVF & symptoms persisted. During admission, pacer was also interrogated and adjusted twice. 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 An MRI was done. Pt to f/u with Dr Lopez as OP. Ultimately pt felt better & was discharged home w/plan to do OP therapy @ [facility]. Pt also to f/u with PCP & cardiology. New Rx's for changes sent to [facility] for Amiodarone (change from 200 mg QD to 200 mg BID) and metoprolol (change from 50 mg BID to 25 mg BID) and new Rx for Atorvastatin also sent. Current admission: 01/01 generalized weakness, heart failure JUDE CORTEZ to room to discuss readmission. Pt resting in bed, family in room visiting. 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 She states she did not go to the appt w/Dr Mao on 12/08, as she changed her PCP to Dr Oleary and did see him last Wed. Family also confirms she went to appts w/Dr Lopez on 12/[address] Arevalo on 12/27. [facility] d/t having pain issues and was f/u with Dr Maxwell re: this. See notes re: discharge planning. Sherry HOBSON RN, CM
[2025-01-03 20:37] VITALS: BP 121/81; PULSE 60; RESP 18; TEMP 35.8; O2SAT 95
[2025-01-03] MEDS: MELATONIN 10 MG TABLET PO (20:37)
[2025-01-04] VITALS (8 sets, daily range): BP systolic 106–122; BP diastolic 61–87; PULSE 59–64; RESP 18–22; TEMP 35.6–37.1; O2SAT 95–99; BMI 23.3
[2025-01-04] MEDS: 0.9% Normal Saline (1000mL) 1,000 ML 75 ML IV (03:24)
--- NOTE | 2025-01-04 06:58 | PCM.PN.HOSP ---
Reason for Visit Chief Complaint: Generalized weakness and light headedness Subjective Subjective Patient seen platelet count continues to drop. Patient was found to be dyspneic this a.m. and order was given for chest x-ray to be obtained, patient did receive Lasix as well as aerosol treatment Objective Data Objective Data Vital Signs: Vital Signs Temp Pulse Resp BP Pulse Ox O2 Del Method 96.3 F L 59 L 20 H 108/72 98 Room Air 01/04/25 05:21 01/04/25 05:21 01/04/25 05:21 01/04/25 05:21 01/04/25 05:21 01/04/25 05:21 Oxygen Delivery Method Room Air Weight: 62.1 kg Body Mass Index (BMI) 23.3 Intake & Output: Intake and Output for Last 24 Hours 01/02/25 01/03/25 01/04/25 23:59 23:59 23:59 Intake Total 920 / 920 3005 / 3005 1000 / 1000 Output Total 0 / 0 Balance 920 / 920 3005 / 3005 1000 / 1000 Lab / Micro Data 01/04/25 07:35 01/04/25 07:35 Labs: Laboratory Results - last 24 hr 01/01/25 16:01: Cycl Citrul Peptide IgG > 250 H 01/03/25 05:10: Total Bilirubin 1.82 H, Direct Bilirubin 0.97 H, AST 240 H, ALT 363 H, Alkaline Phosphatase 81, Total Protein 5.8 L, Albumin 3.8, Globulin 2.0 L Rhythm Strip Rhythm Strip: AV paced rhythm Rate: 60 Physical Exam Narrative GENERAL: cooperative HEENT: Atraumatic; normocephalic EYES; Anicteric, Normal Conjunctiva NECK; supple, normal thyroid, RESPIRATORY: Diminished to auscultation CARDIOVASCULAR: iregular S1 S2, GI: soft, normoactive bowel sounds, : No Renal angle tenderness; EXTREMITIES: No edema, no clubbing, MUSCULOSKELETAL: no muscle wasting NEURO: Awake; no lateralizing signs. SKIN: No Rash PSYCH; Flat affect Assessment & Plan Assessment/Plan (1) ASHLI (acute kidney injury): (2) Generalized weakness: (3) Right ankle pain: PLAN: Plan Patient is an 89-year-old lady who presented to the emergency department with progressive generalized weakness as well as lightheadedness. An assessment of possible rheumatoid arthritis flareup involving the ankle was made. Patient was also found to have low platelet count as well as abnormal LFTs admitted to monitored bed for further management 1. Rheumatoid arthritis flareup involving the ankle ? Patient responded to prednisone trial 2. Abnormal LFTs ? Suspected to be side effect of patient tocilizumab in addition to her low platelet count. Monitoring with daily hepatic function test as well as CBC with differential 3. Thrombocytopenia ? Suspected side effects of tocilizumab. Patient informed plan is to discontinue on discharge and for patient to follow-up with her senior it architect for alternative treatment 4. 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 Status post pacemaker placement 5. Paroxysmal atrial fibrillation ? Rate controlled on systemic anticoagulation with apixaban held given the fact that patient platelet count is less than 60,000 6. Acute on chronic heart failure with reduced ejection fraction ? 01/04/2025 patient echo from 12/01/2024 demonstrated EF of 35%. Patient was found to be dyspneic this a.m. Chest x-ray ordered additional Lasix given in addition to breathing treatment 7. Hypertension ? Blood pressure controlled, home medications continued with dose adjustment as needed 8 Hypothyroidism ? Patient is on levothyroxine home dose continued 9. History of breast cancer s/p mastectomy and chemotherapy ? Follows with oncology, 10. DVT prophylaxis ? Patient is on apixaban which is currently being held given her low platelet count Time spent in the patient's overall evaluation,decision-making process, review of diagnostic data, adjustment of management, discussion with other providers, nursing nursing and ancillary staff involved in patient's care documentation, 36 Minutes Charges/Coding Visit Charges Inpatient E&M: 45317 Subs Hosp L2
[2025-01-04 08:34] LABS: Hematocrit 44.8 % (37-47); Hemoglobin 15.5 g/dL (12.0-15.0); Immature Granulocytes Count 0.100 X10^3/uL (0.0-0.0); Mean Corp Hgb Conc 34.6 g/dL (32-36); Mean Corpuscular Volume 97.6 fL (81-99); Mean Platelet Vol. 13.9 fl (6.2-12.0); NRBC Flagged by Analyzer 0.2 % (0-5); POSITIVE COUNT YES; POSITIVE DIFFERENTIAL YES; RBC Distribution Width CV 15.8 % (11.6-14.6); RBC Distribution Width SD 54.8 fl (35.1-43.9); Red Blood Count 4.59 M/mm3 (4.2-5.4); White Blood Count 12.5 K/mm3 (4.4-11.0)
[2025-01-04 08:58] LABS: Magnesium 2.7 mg/dL (1.5-2.2)
[2025-01-04 09:00] LABS: Anion Gap 15 (5-15); BUN 77 mg/dL (4-19); BUN/Creat Ratio 41.4 RATIO (10-20); Calcium,Total 8.6 mg/dL (7.6-11.0); Carbon Dioxide 12.0 mmol/L (21.0-32.0); Chloride 103 mmol/L (98-108); Estimated Creatinine Clearance 18.05 ml/min (50-250); Glucose 102 mg/dL (70-99); Potassium 5.2 mmol/L (3.3-5.1)
[2025-01-04 09:07] LABS: Differential Comment SCANNED
[2025-01-04 09:08] LABS: Differential Indicated SCAN CRITERIA MET
[2025-01-04 09:09] LABS: Platelet Count 37 K/mm3 (150-450)
--- NOTE | 2025-01-04 10:26 | RAD_ITS ---
PROCEDURE: CHEST 1 VIEW (PORTABLE) 01/04/2025 REASON FOR EXAM: SOB TECHNIQUE: Frontal view of the chest. COMPARISON: Prior study dated January 01, 2025. FINDINGS: Hardware: EKG electrodes are seen. A left-sided port a catheter is seen with the tip in the proximal superior vena cava. A left-sided ICD device is seen. Heart: Borderline cardiomegaly. Lungs: Persistent small right pleural effusion with the right basilar atelectasis. Blunting of the left costophrenic angle with left basilar atelectasis. Mild degree of residual pulmonary vascular congestion. Bones: Healed right rib fractures. Other: Surgical clips are seen in the right axilla. RAD/Chest 1 View (Portable) IMPRESSION: There has been improved aeration as compared to prior study. Residual small bilateral effusions right greater than left with bibasilar atele ctasis. Reading Location: [id number]
[2025-01-04] MEDS: Albuterol 2.5 MG/3 ML VIAL.NEB. INHALATION (10:32)
[2025-01-04] MEDS: Furosemide 20 MG/2 ML VIAL IV (10:32)
[2025-01-04] MEDS: Arthritis Pain Compound 60 CLICK TUBE TOPICAL ×2 (10:32→20:35)
[2025-01-04] MEDS: 0.9% Saline Lock 10 ML Syringe IV (10:32)
[2025-01-05] VITALS (17 sets, daily range): BP systolic 77–123; BP diastolic 48–96; PULSE 60–66; RESP 16–28; TEMP 34.5–36.6; O2SAT 93–100; BMI 23.8
[2025-01-05 06:09] LABS: Anion Gap 18 (5-15); BUN 84 mg/dL (4-19); BUN/Creat Ratio 38.9 RATIO (10-20); Calcium,Total 8.8 mg/dL (7.6-11.0); Carbon Dioxide 10.8 mmol/L (21.0-32.0); Chloride 99 mmol/L (98-108); Estimated Creatinine Clearance 15.62 ml/min (50-250); Glucose 113 mg/dL (70-99); Potassium 5.6 mmol/L (3.3-5.1)
[2025-01-05 07:35] LABS: Hematocrit 47.6 % (37-47); Hemoglobin 16.3 g/dL (12.0-15.0); Immature Granulocytes Count 0.040 X10^3/uL (0.0-0.0); Mean Corp Hgb Conc 34.2 g/dL (32-36); Mean Corpuscular Volume 99.2 fL (81-99); Mean Platelet Vol. 12.8 fl (6.2-12.0); NRBC Flagged by Analyzer 0.3 % (0-5); POSITIVE COUNT YES; POSITIVE DIFFERENTIAL YES; RBC Distribution Width CV 16.0 % (11.6-14.6); RBC Distribution Width SD 57.3 fl (35.1-43.9); Red Blood Count 4.80 M/mm3 (4.2-5.4); White Blood Count 11.1 K/mm3 (4.4-11.0)
[2025-01-05 07:37] LABS: Platelet Count 35 K/mm3 (150-450)
--- NOTE | 2025-01-05 08:31 | PCM.PN.HOSP ---
Reason for Visit Chief Complaint: Generalized weakness and light headedness Subjective Subjective Patient platelet count continues to decline. Down to 35 decision was made to consult heme-onc. BMP this morning did not show significant abnormalities including hyperkalemia, hyponatremia and worsening kidney function. Patient seen appears much more lethargic that the day prior. Case was discussed with patient's daughter as well as her granddaughter. Case was also discussed with heme-onc regarding patient persistent thrombocytopenia Objective Data Objective Data Vital Signs: Vital Signs Temp Pulse Resp BP Pulse Ox O2 Del Method O2 Flow Rate 97.0 F L 62 18 123/96 H 95 Nasal Cannula 2 01/05/25 03:35 01/05/25 03:35 01/05/25 03:35 01/05/25 03:35 01/05/25 03:35 01/05/25 03:35 01/05/25 03:35 Oxygen Flow Rate (L/min) 2 Oxygen Delivery Method Nasal Cannula Weight: 63.4 kg Body Mass Index (BMI) 23.8 Intake & Output: Intake and Output for Last 24 Hours 01/03/25 01/04/25 01/05/25 23:59 23:59 23:59 Intake Total 3005 / 3005 1978.75 / 1978.75 Output Total 200 / 200 150 / 150 Balance 3005 / 3005 1778.75 / 1778.75 -150 / -150 Lab / Micro Data 01/05/25 05:03 01/05/25 05:03 Labs: Laboratory Results - last 24 hr 01/04/25 07:35: WBC 12.5 H, RBC 4.59, Hgb 15.5 H, Hct 44.8, MCV 97.6, MCH 33.8 H, MCHC 34.6, RDW Std Deviation 54.8 H, RDW Coeff of Sharad 15.8 H, Plt Count 37 L*, MPV 13.9 H, Immature Gran % (Auto) 0.800, Neut % (Auto) 91.4 H, Lymph % (Auto) 2.8 L, [place] % (Auto) 4.7, Eos % (Auto) 0.1, Baso % (Auto) 0.2, Absolute Neuts (auto) 11.5 H, Absolute Lymphs (auto) 0.35 L, Nucleated RBC % 0.2, Differential Comment SCANNED, Sodium 130 L, Potassium 5.2 H, Chloride 103, Carbon Dioxide 12.0 L, Anion Gap 15, BUN 77 H, Creatinine 1.86 H, Estim Creat Clear Calc 18.05 L, Est GFR (MDRD) Non-Af 26 L, BUN/Creatinine Ratio 41.4 H, Glucose 102 H, Calcium 8.6, Phosphorus 4.1, Magnesium 2.7 H 01/05/25 05:03: WBC 11.1 H, RBC 4.80, Hgb 16.3 H, Hct 47.6 H, MCV 99.2 H, MCH 34.0 H, MCHC 34.2, RDW Std Deviation 57.3 H, RDW Coeff of Sharad 16.0 H, Plt Count 35 L*, MPV 12.8 H, Immature Gran % (Auto) 0.400, Neut % (Auto) 93.7 H, Lymph % (Auto) 1.3 L, [place] % (Auto) 4.1, Eos % (Auto) 0.0, Baso % (Auto) 0.5, Absolute Neuts (auto) 10.4 H, Absolute Lymphs (auto) 0.14 L, Nucleated RBC % 0.3, Sodium 128 L, Potassium 5.6 H, Chloride 99, Carbon Dioxide 10.8 L, Anion Gap 18 H, BUN 84 H, Creatinine 2.15 H, Estim Creat Clear Calc 15.62 L, Est GFR (MDRD) Non-Af 22 L, BUN/Creatinine Ratio 38.9 H, Glucose 113 H, Calcium 8.8 Radiography Diagnostic Testing: Radiology Impression Chest X-Ray 01/04/25 10:26 IMPRESSION: There has been improved aeration as compared to prior study. Residual small bilateral effusions right greater than left with bibasilar atelectasis. Reading Location: [id number] Rhythm Strip Rhythm Strip: AV paced rhythm Rate: 60 Physical Exam Narrative GENERAL: Appears fatigued HEENT: Atraumatic; normocephalic EYES; Anicteric, Normal Conjunctiva NECK; supple, normal thyroid, RESPIRATORY: Diminished to auscultation CARDIOVASCULAR: iregular S1 S2, GI: soft, normoactive bowel sounds, : No Renal angle tenderness; EXTREMITIES: No edema, no clubbing, MUSCULOSKELETAL: no muscle wasting NEURO: Awake; no lateralizing signs. SKIN: No Rash PSYCH; Flat affect Assessment & Plan Assessment/Plan (1) ASHLI (acute kidney injury): (2) Generalized weakness: (3) Right ankle pain: PLAN: Plan Patient is an 89-year-old lady who presented to the emergency department with progressive generalized weakness as well as lightheadedness. An assessment of possible rheumatoid arthritis flareup involving the ankle was made. Patient was also found to have low platelet count as well as abnormal LFTs admitted to monitored bed for further management 1. Rheumatoid arthritis flareup involving the ankle ? Patient responded to prednisone trial ? 01/05/2025; discontinued prednisone 2. Abnormal LFTs ? Suspected to be side effect of patient tocilizumab in addition to her low platelet count. Monitoring with daily hepatic function test as well as CBC with differential 3. Thrombocytopenia ? Suspected side effects of tocilizumab. Patient informed plan is to discontinue on discharge and for patient to follow-up with her vp scientific affairs for alternative treatment ? 01/05/2025; with patient platelet count not improving decision was made to consult heme-onc 4. Hyperkalemia ? Patient has been started on potassium sparing diuretic?spironolactone this was discontinued patient given Kayexalate repeat K levels ordered 5. Acute kidney injury ? Patient creatinine from 12/06/2024 was 1.14 her admitting creatinine was 2.15. Patient kidney function improved slightly however did worsen with reinitiation of her diuretic therapy 6. Acute on chronic heart failure with reduced ejection fraction ? 01/04/2025 patient echo from 12/01/2024 demonstrated EF of 35%. Patient was found to be dyspneic this a.m. Chest x-ray ordered additional Lasix given in addition to breathing treatment ?01/05/2025; held on diuretics given worsening kidney function 7. Hyponatremia ? Secondary to diuretic therapy held repeat BMP ordered for a.m. 8. 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 Status post pacemaker placement 9. Paroxysmal atrial fibrillation ? Rate controlled on systemic anticoagulation with apixaban held given the fact that patient platelet count is less than 60,000 10. Hypertension ? Blood pressure controlled, home medications continued with dose adjustment as needed 11. Hypothyroidism ? Patient is on levothyroxine home dose continued 12. History of breast cancer s/p mastectomy and chemotherapy ? Follows with oncology, 13. DVT prophylaxis ? Patient is on apixaban which is currently being held given her low platelet count Time spent in the patient's overall evaluation,decision-making process, review of diagnostic data, adjustment of management, discussion with patient's family, other providers, nursing nursing and ancillary staff involved in patient's care documentation, 55 Minutes Charges/Coding Visit Charges Inpatient E&M: 62099 Subs Hosp L3
--- NOTE | 2025-01-05 10:15 | RAD_ITS ---
PROCEDURE: CHEST 1 VIEW (PORTABLE) 01/05/2025 REASON FOR EXAM: DYSPNEA TECHNIQUE: Frontal view of the chest. COMPARISON: Prior study dated March 06, 2025. FINDINGS: Hardware: EKG electrodes are seen. A left-sided port a catheter is seen and is unchanged. Heart: Left dual-chamber pacemaker. Lungs: Since prior study, there has been improved aeration of both lungs although mild residual changes persist. Persistent blunting of the right costophrenic angle as well as the left costophrenic angle. Bones: Degenerative changes are identified within the thoracic spine. Healed multiple right-sided rib fractures. Other: RAD/Chest 1 View (Portable) IMPRESSION: Since prior study, there has been improved aeration of both lungs. Reading [facility]
[2025-01-05] MEDS: Arthritis Pain Compound 60 CLICK TUBE TOPICAL ×2 (10:43→22:06)
--- NOTE | 2025-01-05 11:01 | CASEMGMT ---
Social Work Pre-cert for TCU has been cancelled until the patient is medically ready for DC. BALDO spoke with the daughter Maya and informed her the referral has been cancelled for now to TCU. BALDO spoke with about resubmitting it once the patient is ready for discharge but that TCU may not have availability at that time. GELY Lopez
--- NOTE | 2025-01-05 11:08 | ONC.CONSULT ---
Assessment & Plan Assessment/Plan (1) Thrombocytopenia: Status: Acute Code(s): D69.6 - Thrombocytopenia, unspecified Plan: This is probably due Tocilizumab therapy or SIRS. She has stopped Tocilizumab therapy a few weeks ago. It may weeks to months to resolve. Suggest doing observation unless she bleeds then she can get IVIG and Platelets transfusion. HPI Consult Data Date of Service:: 01/05/25 PCP / Referring Provider: Macie Oleary MD Attending: Dr. Ajith Quiñones MD Chief Complaint Chief Complaint: Asked to see patient for thrombocytopenia. History of Present Illness History of Present Illness: 89-year-old woman with history of breast cancer, rheumatoid arthritis was admitted on 01/01/2025 with general weakness and lightheadedness, Platelets were 64K on admission but has been trending downwards, and today it is 35K. She has no evidence of bleeding. She has been on tocilizumab until a few weeks ago or so. Advanced Directives Do you have a Healthcare Power of Clerical Receptionist?: Yes PFSH Medical History (Updated 01/05/25 @ 11:[address] Matteo Jonas MD) Hypotension Anxiety Depression Hypothyroidism Non-smoker Atrial fibrillation Congestive heart failure (CHF) Pacemaker Myocardial infarct Shingles Atrial tachycardia Presence of permanent cardiac pacemaker CKD (chronic kidney disease) stage 3, GFR 30-59 ml/min Non-rheumatic mitral regurgitation Mitral valve insufficiency Rheumatoid arthritis STEMI (ST elevation myocardial infarction) Atherosclerosis of coronary artery of [place] heart without angina pectoris History of coronary artery stent placement (04/12/20) Osteomyelitis of left lower extremity 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 Colonization status Contamination 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 Venous insufficiency (chronic) (peripheral) Delayed wound healing Other specified peripheral vascular diseases Non-pressure chronic ulcer of unspecified part of left lower leg with fat layer exposed Staph infection Left ankle swelling History of malignant neoplasm of right breast Fx cervical vert NOS-closed Fx clavicle Arthritis Malignant neoplasm of right female breast Osteopenia Home Medications ?Medication ?Instructions ?Recorded ?Last Taken ?Type calcium carbonate 1,000 mg PO DAILY@0800 PRN 04/07/23 11/29/24 History indigestion dapagliflozin propanediol 10 mg 10 mg PO QAM heart #90 tabs 02/01/24 12/31/24 Rx tablet (Farxiga) spironolactone 25 mg tablet 25 mg PO QAM heart #90 tabs 06/20/24 12/31/24 Rx apixaban 2.5 mg tablet 2.5 mg PO BID blood thinner #180 09/12/24 12/31/24 Rx tabs amiodarone 200 mg tablet 200 mg PO BID #180 tabs 12/27/24 12/31/24 Rx furosemide 40 mg tablet 40 mg PO QDAY PRN edema 12/27/24 Unknown History levothyroxine 100 mcg tablet 100 mcg PO QDAY 12/27/24 12/30/24 History (Synthroid) metoprolol tartrate 25 mg tablet 25 mg PO BID #60 tabs 12/27/24 12/31/24 Rx tocilizumab-aazg 162 mg/0.9 mL 162 mg subcut Q7D 12/27/24 12/18/24 History subcutaneous syringe (Tyenne) Allergy/AdvReac Type Severity Reaction Status Date / Time Fwglxun-[id number]-[id number] Reductase Allergy Other Verified 01/01/25 09:08 Inhibitor ticagrelor (From Brilinta) AdvReac Severe Severe Verified 01/01/25 09:08 dyspnea on exertion Family History Father Clotting disorder Heart disease Surgical History History of cardioversion (01/27/23) History of ankle surgery History of left heart catheterization (LHC) (~01/02/21) Presence of coronary angioplasty implant and graft (~04/12/20) History of arthroplasty of left ankle History of tubal ligation History of mastectomy Social History Smoking Status: Never smoker alcohol intake: never substance use type: does not use caffeine: Yes Physical Exam Narrative Elderly woman, Lying in bed Const Constitutional Narrative: Lethargic but easily arousable HEENT normocephalic Eyes PERRL Neck no lymphadenopathy Lymph Lymphatic: no lymphadenopathy noted Chest inspection of chest normal Chest Narrative: +PPM Resp normal respiratory effort and clear to auscultation bilaterally Cardio S1 normal heart sound and S2 normal heart sound GI soft to palpation and non-tender Extremity Extremity Narrative: +arthritis deformans Skin no rashes or lesions noted Neuro CN's II-XII intact bilaterally Vital Signs Temperature 94.1 F L 01/05/25 09:34 Temperature Source Rectal 01/05/25 09:34 Pulse Rate 60 01/05/25 09:34 Respiratory Rate 26 H 01/05/25 09:34 Respiratory Effort Short of Breath 01/04/25 21:00 Respiratory Depth Shallow 01/04/25 15:55 Respiratory Pattern Tachypnea 01/04/25 15:55 Blood Pressure 99/48 L 01/05/25 10:50 Blood Pressure Mean 65 01/05/25 10:50 Blood Pressure Source Monitor 01/05/25 10:50 Blood Pressure Position Semi-Fowlers 01/05/25 10:50 Blood Pressure Location Left Arm 01/05/25 10:50 Pulse Ox 100 01/05/25 09:34 Oxygen Delivery Method Nasal Cannula 01/05/25 09:34 Oxygen Flow Rate (L/min) 2 01/05/25 09:34 Laboratory Results - last 24 hr 01/05/25 05:03: WBC 11.1 H, RBC 4.80, Hgb 16.3 H, Hct 47.6 H, MCV 99.2 H, MCH 34.0 H, MCHC 34.2, RDW Std Deviation 57.3 H, RDW Coeff of Sharad 16.0 H, Plt Count 35 L*, MPV 12.8 H, Immature Gran % (Auto) 0.400, Neut % (Auto) 93.7 H, Lymph % (Auto) 1.3 L, Humphreys % (Auto) 4.1, Eos % (Auto) 0.0, Baso % (Auto) 0.5, Absolute Neuts (auto) 10.4 H, Absolute Lymphs (auto) 0.14 L, Nucleated RBC % 0.3, Sodium 128 L, Potassium 5.6 H, Chloride 99, Carbon Dioxide 10.8 L, Anion Gap 18 H, BUN 84 H, Creatinine 2.15 H, Estim Creat Clear Calc 15.62 L, Est GFR (MDRD) Non-Af 22 L, BUN/Creatinine Ratio 38.9 H, Glucose 113 H, Calcium 8.8 Diagnostic Data Abdomen Ultrasound 01/01/25 11:47 IMPRESSION: 1. Nonspecific gallbladder wall thickening without visualized cholelithiasis or positive reported sonographic Romero's sign to confirm acute cholecystitis, although this should be confirmed by clinician exam. In addition to acute/chronic cholecystitis, gallbladder wall thickening can also be seen in the setting of 3rd spacing, venous congestion, or may be reactive to a primarily hepatic process amongst other etiologies. Correlate with presentation/exam and if there is clinical ambiguity, consider HIDA. 2. Question lobulated hepatic contours as may be seen in chronic liver disease. Correlate with clinical and laboratory evaluation. 3. At least trace to small volume nonspecific perihepatic free fluid. Trace pericholecystic fluid may be a related finding. 4. Additional description as above. Reading Location: [facility] Ankle X-Ray 01/01/25 15:20 IMPRESSION: No acute or aggressive osseous abnormality. Reading Location: [facility] Chest X-Ray 01/05/25 10:15 IMPRESSION: Since prior study, there has been improved aeration of both lungs. Reading Location: [facility]
[2025-01-05 11:45] LABS: AST(SGOT) 250 U/L (<=31); Alanine Aminotransfer ALT/SGPT 488 U/L (<=34); Albumin, Serum 3.8 g/dL (3.4-4.8); Alkaline Phosphatase 109 U/L (35-104); Bilirubin, Direct 1.43 mg/dL (0.00-0.30); Globulin 2.0 g/dL (2.2-4.2)
[2025-01-05 11:47] LABS: Allen Test Positive; Base Excess -12 mmol/L (-2 to +2); FI02 2.0; PO2 90 mmHG (75-100); SITE L Radial; SO2 97 % (95-99)
--- NOTE | 2025-01-05 12:36 | SEPSIS_ITS ---
Sepsis Attestation Sepsis Attestation: Agree w/Sepsis Date exam was performed: 01/05/25 Time exam was performed: 11:00 Possible Source of Sepsis: Unknown Sepsis Organ Dysfunction Criteria Present: Creatinine > 2.0 mg/dL, Lactic Acid > 2 mmol/L and New/Unexplained change in mental status Fluid Resuscitation Fluid resuscitation indicated?: Yes Fluid Resuscitation ordered: Lesser volume fluid bolus ordered Amount of fluid ordered: 250 Reason for lesser fluid bolus:: Heart failure Sepsis Note Date exam was performed: 01/05/25 Time exam was performed: 15:11 Sepsis Attestation: Sepsis re-evaluation was performed Response to fluids: Non Fluid responsive hypotension (Patient was transferred to the intensive care unit after discussion with lining stuffer as well as nephrology. Patient has been started on bicarb drip prior to patient being transferred. As part of management patient has been started on cefepime and vancomycin cultures sent and procalcitonin sent )
--- NOTE | 2025-01-05 12:57 | EX.PCM.CONCC ---
Assessment & Plan Assessment/Plan (1) Thrombocytopenia: (2) Elevated LFTs: (3) Generalized weakness: (4) Congestive heart failure (CHF): QUALIFIERS: Heart failure type: systolic Heart failure chronicity: chronic Qualified Code(s): I50.22 - Chronic systolic (congestive) heart failure PLAN: Plan RECOMMENDATIONS: 1. Agree with broad-spectrum antimicrobial initiation. Blood and urine cultures are pending. 2. Check TSH and procalcitonin. 3. Obtain reflex lactate. 4. Consider CT imaging of the abdomen, given findings noted on abdominal ultrasound on January 01. 5. Nephrology consultation is pending. 6. Recheck coagulation profile. IMPRESSIONS: 1. Generalized weakness with concern for possible evolving sepsis The patient was initially admitted with generalized weakness and concern that she needed to be volume resuscitated. The patient is now overall net +6 L for the hospitalization, according to documentation. She has developed worsening thrombocytopenia, renal insufficiency and has an anion gap metabolic acidosis. Accordingly, infection is being considered. However, no discernible source of infection has yet to be identified through this hospitalization to date. Blood and urine cultures are currently pending. The patient will be initiated on antimicrobial therapy. Recommend rechecking lactate. Nephrology consultation is pending due to the patient's underlying renal insufficiency. 2. Acute kidney injury/increased anion gap metabolic acidosis Nephrology consultation is currently pending. The patient is overall net positive from a volume perspective for the hospitalization. She does have a known history of an underlying cardiomyopathy with reduced ejection fraction, raising the concern for a cardio renal etiology. 3. Thrombocytopenia Potentially related to outpatient utilization of tocilizumab compounded by possible sepsis. Continue current supportive care. Given the lack of overt signs of bleeding, no indication for transfusion of platelets at the present time. 4. History of heart failure with reduced ejection fraction/paroxysmal atrial fibrillation/history of heart block status post pacemaker Continue current medical therapy per cardiology recommendations. Eliquis remains on hold hold appropriately. 5. History of rheumatoid arthritis/history of breast CA status postmastectomy/hypothyroidism Complicates care, management, recovery and prognosis. Continue supportive care as noted above. This note was generated with Graph [employer] software. It may contain incorrect words, spelling, and punctuation that were not noted in checking the note before signing. HPI Consult Data Date of Consult: 01/05/25 HPI Narrative Reason for Consultation: Possible sepsis HPI Narrative: The patient is an 89-year-old female, with a history as outlined below, who presented to the emergency department on January 01 with complaints of generalized weakness and lightheadedness. The patient has a known history of coronary artery disease status post PCI, paroxysmal atrial fibrillation on Eliquis, heart failure with reduced ejection fraction, hypothyroidism and rheumatoid arthritis. According to the patient and her family, she has been medically managed with tocilizumab for her rheumatologic disease, which was last administered 3 weeks ago. The patient had a surface echocardiogram in December 2024 which demonstrated an ejection fraction of 35%. On presentation to the emergency department, the patient was noted to be afebrile and hemodynamically stable. Laboratory evaluation was notable for a white blood cell count of 10,000. Hemoglobin was noted to be 16 g/dL with a platelet count of 64,000. It does appear that the patient has been thrombocytopenic since July 2024. INR was noted to be 3.3. Chemistry profile was notable for a sodium of 132 with a bicarbonate of 14, anion gap of 16 and creatinine of 2.15. Total bilirubin was elevated at 2.39. BNP was elevated at 30,896. TSH was within normal limits. Urine analysis was unremarkable. Chest x-ray demonstrated a small right-sided pleural effusion. Abdominal ultrasound demonstrated nonspecific gallbladder wall thickening. The patient was subsequently seen in consultation by cardiology. The patient was initially admitted to the hospital for IV fluid resuscitation. This morning, the patient was noted by the primary team to be more lethargic with worsening renal insufficiency and thrombocytopenia. Consultation was placed to hematology, who felt that the etiology for the thrombocytopenia was likely related to sepsis and/or medication effect from tocilizumab. ABG obtained this afternoon demonstrated a pH of 7.37 with a pCO2 of 23 and pO2 of 90. The patient's white count this morning was noted to be 11,000 with a platelet count of 35,000. Chemistry profile was notable for a sodium of 128 with a potassium of 5.6, bicarbonate of 11, anion gap of 18 and creatinine of 2.15. Lactate was elevated at 4.4. Given concerns for evolving sepsis, the patient was ordered to receive antimicrobials and was transferred to the medical intensive care unit. [facility] Medical History (Updated 01/05/25 @ 11:[address] Matteo Jonas MD) Hypotension Anxiety Depression Hypothyroidism Non-smoker Atrial fibrillation Congestive heart failure (CHF) Pacemaker Myocardial infarct Shingles Atrial tachycardia Presence of permanent cardiac pacemaker CKD (chronic kidney disease) stage 3, GFR 30-59 ml/min Non-rheumatic mitral regurgitation Mitral valve insufficiency Rheumatoid arthritis STEMI (ST elevation myocardial infarction) Atherosclerosis of coronary artery of [place] heart without angina pectoris History of coronary artery stent placement (04/12/20) Osteomyelitis of left lower extremity 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 Colonization status Contamination 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 Venous insufficiency (chronic) (peripheral) Delayed wound healing Other specified peripheral vascular diseases Non-pressure chronic ulcer of unspecified part of left lower leg with fat layer exposed Staph infection Left ankle swelling History of malignant neoplasm of right breast Fx cervical vert NOS-closed Fx clavicle Arthritis Malignant neoplasm of right female breast Osteopenia Home Medications ?Medication ?Instructions ?Recorded ?Last Taken ?Type calcium carbonate 1,000 mg PO DAILY@0800 PRN 04/07/23 11/29/24 History indigestion dapagliflozin propanediol 10 mg 10 mg PO QAM heart #90 tabs 02/01/24 12/31/24 Rx tablet (Farxiga) spironolactone 25 mg tablet 25 mg PO QAM heart #90 tabs 06/20/24 12/31/24 Rx apixaban 2.5 mg tablet 2.5 mg PO BID blood thinner #180 09/12/24 12/31/24 Rx tabs amiodarone 200 mg tablet 200 mg PO BID #180 tabs 12/27/24 12/31/24 Rx furosemide 40 mg tablet 40 mg PO QDAY PRN edema 12/27/24 Unknown History levothyroxine 100 mcg tablet 100 mcg PO QDAY 12/27/24 12/30/24 History (Synthroid) metoprolol tartrate 25 mg tablet 25 mg PO BID #60 tabs 12/27/24 12/31/24 Rx tocilizumab-aazg 162 mg/0.9 mL 162 mg subcut Q7D 12/27/24 12/18/24 History subcutaneous syringe (Tyenne) Allergy/AdvReac Type Severity Reaction Status Date / Time Pdurkcq-EXL-UxT Reductase Allergy Other Verified 01/01/25 09:08 Inhibitor ticagrelor (From Brilinta) AdvReac Severe Severe Verified 01/01/25 09:08 dyspnea on exertion Family History Father Clotting disorder Heart disease Surgical History History of cardioversion (01/27/23) History of ankle surgery History of left heart catheterization (LHC) (~01/02/21) Presence of coronary angioplasty implant and graft (~04/12/20) History of arthroplasty of left ankle History of tubal ligation History of mastectomy Social History Smoking Status: Never smoker alcohol intake: never substance use type: does not use caffeine: Yes ROS ROS Narrative 10 systems were reviewed with pertinent positives as noted in the HPI above. Physical Exam Const alert Constitutional Narrative: Family is present at the bedside. General Appearance: cooperative and ill appearing HEENT normocephalic and head/scalp atraumatic Eyes PERRL, EOMs intact bilaterally and conjunctivae normal Neck supple General: trachea midline Chest inspection of chest normal Resp Effort and Inspection: able to speak in complete sentences and tachypneic Auscultation: rales Cardio S1 normal heart sound and S2 normal heart sound Rhythm: abnormal rhythm GI normal to inspection, nondistended, normoactive bowel sounds Extremity no clubbing, cyanosis or edema Skin no rashes or lesions noted Neuro CN's II-XII intact bilaterally, moves all extremities and no focal motor deficits Psych Mood & Affect: flat affect Lab / Micro Data 01/05/25 05:03 01/05/25 05:03 Labs: Laboratory Results - last 24 hr 01/05/25 05:03: WBC 11.1 H, RBC 4.80, Hgb 16.3 H, Hct 47.6 H, MCV 99.2 H, MCH 34.0 H, MCHC 34.2, RDW Std Deviation 57.3 H, RDW Coeff of Sharad 16.0 H, Plt Count 35 L*, MPV 12.8 H, Immature Gran % (Auto) 0.400, Neut % (Auto) 93.7 H, Lymph % (Auto) 1.3 L, Clarke % (Auto) 4.1, Eos % (Auto) 0.0, Baso % (Auto) 0.5, Absolute Neuts (auto) 10.4 H, Absolute Lymphs (auto) 0.14 L, Nucleated RBC % 0.3, Sodium 128 L, Potassium 5.6 H, Chloride 99, Carbon Dioxide 10.8 L, Anion Gap 18 H, BUN 84 H, Creatinine 2.15 H, Estim Creat Clear Calc 15.62 L, Est GFR (MDRD) Non-Af 22 L, BUN/Creatinine Ratio 38.9 H, Glucose 113 H, Calcium 8.8, Total Bilirubin 2.37 H, Direct Bilirubin 1.43 H, AST 250 H, ALT 488 H, Alkaline Phosphatase 109 H, Total Protein 5.8 L, Albumin 3.8, Globulin 2.0 L 01/05/25 10:50: Lactic Acid 4.4 H* ABG Data ABG results: ABG 01/05/25 11:44 Specimen Type ART Sample Site L Radial pH 7.37 Bicarbonate Actual 13.0 L Total CO2 14 Base Excess -12 L O2 Saturation 97 O2 % 2.0 ABG pCO2 22.7 L ABG pO2 90 Trevor Test Positive O2 Delivery Device Cannula Vent Mode Not entered Rhythm Strip Rhythm Strip: AV paced rhythm Rate: 60 Imaging Radiology Impression Chest X-Ray 01/05/25 10:15 IMPRESSION: Since prior study, there has been improved aeration of both lungs. Reading Location: [facility] Sepsis Attestation Sepsis Alert: Yes Sepsis Attestation: Agree w/Sepsis Date exam was performed: 01/05/25 Time exam was performed: 13:27 Possible Source of Sepsis: Unknown Sepsis Organ Dysfunction Criteria Present: Creatinine > 2.0 mg/dL, Total Bilirubin > 2 mg/dl, Platelets <100,000 / uL, INR > 1.5 or aPTT > 60 sec, Lactic Acid > 2 mmol/L and Serum CO2 < 20 mmol/L (on BMP) Sepsis Note Date exam was performed: 01/05/25 Time exam was performed: 13:28 Charges/Coding Visit Charges Inpatient E&M: 27807 Init Hosp L3
--- NOTE | 2025-01-05 13:19 | CT_ITS ---
PROCEDURE: ABDOMEN/PELVIS WITH CONTRAST 01/05/2025 REASON FOR EXAM: SEPSIS UNCLEAR ETIOLOGY TECHNIQUE: Procedure Code: [id number] Modality: CT Procedure: ABDOMEN/PELVIS WITH CONTRAST Coronal and Sagittal reconstruction series were provided. CONTRAST: Please see CT VOLUME: Please see CT mL One or more dose reduction techniques were used (e.g., Automated exposure control, adjustment of the mA and/or kV according to patient size, use of iterative reconstruction technique. RADIATION DOSE SUMMARY: CTDlvol: Please see CT mGy DLP: 804.18 mGycm COMPARISON: None FINDINGS: Study limitations: Fine detail evaluation is compromised by motion haziness, generalized anasarca and positioning of the patient's arms alongside the body wall causing beam hardening through the region of interest. Lung bases: Incompletely imaged moderately large right and small left pleural and subpulmonic effusions extending above the level of this exam. Confluent airspace opacities [id number]-left lung base may be secondary to compressive atelectasis, however aspiration or pneumonia can not be ruled out on this study. Clinical correlation and radiographic follow-up of these findings is advised. Liver: Hepatic length is 13.5 cm. Evaluation of hepatic parenchyma is limited by lack of portal phase imaging. There is heterogeneity of hepatic parenchyma and mild periportal edema. Clinical correlation with LFTs. Gallbladder/biliary: Mildly distended gallbladder containing high density material. This may represent vicarious excretion of contrast, hemobilia or sludge. Further evaluation of the gallbladder is limited by this technique. If there are symptoms related to the gallbladder consider ultrasound or HIDA scan. No significant biliary dilation seen. Pancreas: Evaluation of the pancreas is limited by artifact. No obvious pancreatic inflammation seen. Correlation with pancreatic enzymes is advised. Spleen: The spleen is not enlarged. Splenic calcifications noted. Adrenals: Enlarged adrenal glands consistent with hyperplasia. Kidneys/ureters: The kidneys enhance symmetrically without hydronephrosis. No renal calculi. No imaging evidence of pyelonephritis. The ureters are not identified. Gastrointestinal: No hiatal hernia. The stomach is not sufficiently distended to evaluate wall thickening. Mild duodenitis can not be ruled out on this study. No appearance to suggest a complete small bowel obstruction. Mild enteritis or gastroenteritis can not be ruled out on this study. Portions of the colon are slightly distended with fecal material distally and air-fluid levels proximally. Pneumatosis coli of the descending colon can not be ruled out versus artifact from fecal material. Clinical correlation is advised. Distal colitis or ischemic colitis can not be ruled out on this study. Correlation with clinical and laboratory findings is advised. Perirectal edema to be correlated for proctitis. There is extensive diverticulosis but no focal diverticular inflammation seen. Appendix: The appendix is not identified. Clinical correlation is advised. Peritoneal/retroperitoneal: No free intraperitoneal air. Trace amount of free fluid within the pelvis. There is generalized elevated attenuation throughout the mesentery and omentum which may be due to anasarca or diffuse inflammatory change. Vascular: The entire heart is not included on this exam. Visualized cardiac size is significantly enlarged. There is distention of the right atrium. Pacemaker leads are seen in the right heart. There is tricuspid regurgitation of contrast into the hepatic veins and IVC. No abdominal aortic aneurysm, dissection or retroperitoneal hemorrhage. There is aortoiliac, femoral and visceral arterial atherosclerosis. Lymph nodes: No obvious pathologic lymphadenopathy by size criteria. Urinary bladder: The urinary bladder is not diagnostically assessed as it is completely decompressed by a Capone catheter. Gas within the urinary bladder could be iatrogenic. Any bladder symptoms to be correlated clinically. Bladder wall thickening can not be ruled out on this study. Correlation with hematuria and urinalysis as clinically appropriate. Reproductive: The uterus measures approximately 4.8 cm in length. The endometrial complex is not identified. 3.8 cm cystic lesion in the right adnexa may represent a right ovarian cyst. Consider ultrasound when clinically appropriate for further assessment, given the patient's age. Soft tissues: Generalized body wall edema extending above and below the level of imaging. The cause of this is indeterminate. Osseous: Scoliosis and severe degenerative changes of the spine. Severe compression fracture deformities at T12 and L1 of indeterminate acuity. Lumbar spine malalignments noted. Clinical correlation with any symptoms. CT/Abdomen/Pelvis WITH Contrast IMPRESSION: Pleural effusions and pulmonary opacities to be correlated clinically. - Generalized anasarca. - Gastrointestinal findings to be correlated clinically for significance are disc ussed above in detail. - Small amount of free fluid within the peritoneal cavity. - 3.8 cm right adnexal/ovarian cyst. Further evaluation by ultrasound when clinically appropriate is advised. - Other findings and study limitations discussed above. Reading Location: [facility]
[2025-01-05 14:36] LABS: Prothrombin Time (Protime)PT. 29.1 SECONDS (11.7-14.9)
--- NOTE | 2025-01-05 14:48 | PCM.RX.CS ---
Consult Antibiotic Management Pharmacy has been consulted to manage selected antibiotic: Vancomycin Type of Intervention Type of Consult: Follow-up Suspected Infection Suspected Infection: Sepsis Prior Doses of Antibiotics Prior Doses of Antibiotics Received/Current Regimen: Vancomycin 1500 mg IV x 1 scheduled for today Labs Labs: Sodium 128 mmol/L (133-145) L 01/05/25 05:03 Chloride 99 mmol/L (98-108) 01/05/25 05:03 Carbon Dioxide 10.8 mmol/L (21.0-32.0) L 01/05/25 05:03 Anion Gap 18 (5-15) H 01/05/25 05:03 BUN 84 mg/dL (4-19) H 01/05/25 05:03 Creatinine 2.15 mg/dL (0.70-1.20) H 01/05/25 05:03 Est GFR (MDRD) Non-Af 22 (>60) L 01/05/25 05:03 BUN/Creatinine Ratio 38.9 RATIO (10-20) H 01/05/25 05:03 Glucose 113 mg/dL (70-99) H 01/05/25 05:03 Microbiology Microbiology: Microbiology 01/05/25 12:39 Urine Catheter - Capone Legionella Antigen - Final 01/05/25 12:39 Urine Catheter - [place]one Streptococcus pneumoniae Antigen (M - Final 01/05/25 11:24 Mucosa - Nasopharyngeal Coronavirus COVID-19 PCR - Final Dosing Weight Weight used for dosin.4 kg Estimated Creatinine Clearance Estimated Creatinine Clearance: ~ 16 Goal Trough Goal Trough: 15-20 mcg/mL Pharmacy Plan for Drug Dosing Pharmacy Plan for Drug Dosing: Vancomycin 1500 mg IV x 1, awaiting random level prior to further dosing Pharmacy Service will continue to monitor and adjust dosing as required. Follow-Up Labs Follow-Up Labs: Trough: Vancomycin Date/Time Labs Ordered Labs to be done on [date and time ordered]: 01/07/25 @ 0600
[2025-01-05] MEDS: 0.9% Normal Saline (1000mL) 1,000 ML 75 ML IV (14:59)
[2025-01-05] MEDS: Cefepime HCl 2 GM in 0.9% Normal Saline (100mL MB+) 100 ML IV (15:02)
--- NOTE | 2025-01-05 15:08 | PCM.CONS.R ---
Assessment & Plan Assessment/Plan (1) ASHLI (acute kidney injury): PLAN: Appears to have close to normal baseline creatinine. Presumably prerenal versus septic ATN Urine analysis with leukocytes, previous urine culture noted. Anion gap metabolic acidosis, elevated lactate Thrombocytopenia, seen by hematology, suspected to be medication adverse effect Possible she is in some form of sepsis. Discussed with ICU attending, will be treated as septic shock. IV fluids as tolerated. History of cardiomyopathy with low ejection fraction. IV bicarbonate fluid for now. HPI Consult Data Date of Consult: 01/05/25 HPI Narrative Reason for Consultation: ASHLI HPI Narrative: ROBERTO RASMUSSEN, is a 89 F who presents To the hospital with generalized weakness about 2 days ago. Nephrology on consultation in view of acute renal failure. She has known history of congestive heart failure with low ejection fraction, rheumatoid arthritis with recent suspected flare in the ankle. Was seen by hematology for thrombocytopenia, thought to be related to medication effect. Nephrology on consultation in view of acute renal failure and acidosis. Bicarbonate dropped to 10, elevated anion gap today. She is currently being evaluated by ICU team for potential transfer to ICU. [facility] Medical History (Updated 01/05/25 @ 11:[address] Matteo Jonas MD) Hypotension Anxiety Depression Hypothyroidism Non-smoker Atrial fibrillation Congestive heart failure (CHF) Pacemaker Myocardial infarct Shingles Atrial tachycardia Presence of permanent cardiac pacemaker CKD (chronic kidney disease) stage 3, GFR 30-59 ml/min Non-rheumatic mitral regurgitation Mitral valve insufficiency Rheumatoid arthritis STEMI (ST elevation myocardial infarction) Atherosclerosis of coronary artery of [place] heart without angina pectoris History of coronary artery stent placement (04/12/20) Osteomyelitis of left lower extremity 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 Colonization status Contamination 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 Venous insufficiency (chronic) (peripheral) Delayed wound healing Other specified peripheral vascular diseases Non-pressure chronic ulcer of unspecified part of left lower leg with fat layer exposed Staph infection Left ankle swelling History of malignant neoplasm of right breast Fx cervical vert NOS-closed Fx clavicle Arthritis Malignant neoplasm of right female breast Osteopenia Home Medications ?Medication ?Instructions ?Recorded ?Last Taken ?Type calcium carbonate 1,000 mg PO DAILY@0800 PRN 04/07/23 11/29/24 History indigestion dapagliflozin propanediol 10 mg 10 mg PO QAM heart #90 tabs 02/01/24 12/31/24 Rx tablet (Farxiga) spironolactone 25 mg tablet 25 mg PO QAM heart #90 tabs 06/20/24 12/31/24 Rx apixaban 2.5 mg tablet 2.5 mg PO BID blood thinner #180 09/12/24 12/31/24 Rx tabs amiodarone 200 mg tablet 200 mg PO BID #180 tabs 12/27/24 12/31/24 Rx furosemide 40 mg tablet 40 mg PO QDAY PRN edema 12/27/24 Unknown History levothyroxine 100 mcg tablet 100 mcg PO QDAY 12/27/24 12/30/24 History (Synthroid) metoprolol tartrate 25 mg tablet 25 mg PO BID #60 tabs 12/27/24 12/31/24 Rx tocilizumab-aazg 162 mg/0.9 mL 162 mg subcut Q7D 12/27/24 12/18/24 History subcutaneous syringe ([place]) Allergy/AdvReac Type Severity Reaction Status Date / Time Yydpekb-HOK-BbR Reductase Allergy Other Verified 01/01/25 09:08 Inhibitor ticagrelor (From Brilinta) AdvReac Severe Severe Verified 01/01/25 09:08 dyspnea on exertion Family History Father Clotting disorder Heart disease Surgical History History of cardioversion (01/27/23) History of ankle surgery History of left heart catheterization (LHC) (~01/02/21) Presence of coronary angioplasty implant and graft (~04/12/20) History of arthroplasty of left ankle History of tubal ligation History of mastectomy Social History Smoking Status: Never smoker alcohol intake: never substance use type: does not use caffeine: Yes ROS ROS Narrative negative except above Physical Exam Narrative Alert awake oriented x 3 no obvious distress no pallor no icterus no JVD s1s2 no murmurs lungs clear abdomen soft no organomegaly no edema Lab / Micro Data 01/05/25 05:03 01/05/25 05:03 Labs: Laboratory Results - last 24 hr 01/05/25 05:03: WBC 11.1 H, RBC 4.80, Hgb 16.3 H, Hct 47.6 H, MCV 99.2 H, MCH 34.0 H, MCHC 34.2, RDW Std Deviation 57.3 H, RDW Coeff of Sharad 16.0 H, Plt Count 35 L*, MPV 12.8 H, Immature Gran % (Auto) 0.400, Neut % (Auto) 93.7 H, Lymph % (Auto) 1.3 L, [place] % (Auto) 4.1, Eos % (Auto) 0.0, Baso % (Auto) 0.5, Absolute Neuts (auto) 10.4 H, Absolute Lymphs (auto) 0.14 L, Nucleated RBC % 0.3, Sodium 128 L, Potassium 5.6 H, Chloride 99, Carbon Dioxide 10.8 L, Anion Gap 18 H, BUN 84 H, Creatinine 2.15 H, Estim Creat Clear Calc 15.62 L, Est GFR (MDRD) Non-Af 22 L, BUN/Creatinine Ratio 38.9 H, Glucose 113 H, Calcium 8.8, Total Bilirubin 2.37 H, Direct Bilirubin 1.43 H, AST 250 H, ALT 488 H, Alkaline Phosphatase 109 H, Total Protein 5.8 L, Albumin 3.8, Globulin 2.0 L 01/05/25 10:50: Lactic Acid 4.4 H* 01/05/25 14:10: PT 29.1 H, INR 2.7 Micro: Microbiology 01/05/25 12:39 Urine Catheter - [place]one Legionella Antigen - Final 01/05/25 12:39 Urine Catheter - [place] Streptococcus pneumoniae Antigen (M - Final 01/05/25 11:24 Mucosa - Nasopharyngeal Coronavirus COVID-19 PCR - Final ABG Data ABG results: ABG 01/05/25 11:44 Specimen Type ART Sample Site L Radial pH 7.37 Bicarbonate Actual 13.0 L Total CO2 14 Base Excess -12 L O2 Saturation 97 O2 % 2.0 ABG pCO2 22.7 L ABG pO2 90 Trevor Test Positive O2 Delivery Device Cannula Vent Mode Not entered Rhythm Strip Rhythm Strip: AV paced rhythm Rate: 60 Imaging Radiology Impression Chest X-Ray 01/05/25 10:15 IMPRESSION: Since prior study, there has been improved aeration of both lungs. Reading Location: [facility]
[2025-01-05 15:16] LABS: Reflex Lactate? Y
[2025-01-05 15:46] LABS: Procalcitonin 0.21 ng/mL (<=0.10)
[2025-01-05] MEDS: 0.9% Normal Saline (250mL Bag) 250 ML 999 ML IV (15:58)
[2025-01-05 16:12] LABS: Potassium 5.8 mmol/L (3.3-5.1)
[2025-01-05] MEDS: Vancomycin HCl 1,500 MG in 0.9% Normal Saline (500mL Bag) 500 ML 250 MG IV (16:20)
[2025-01-05] MEDS: Sodium Bicarbonate 100 MEQ in Dextrose 5%-Water (1000mL Bag) 1,000 ML IV (21:24)
[2025-01-05] MEDS: 0.9% Saline Lock 10 ML Syringe IV (22:07)
--- NOTE | 2025-01-05 22:52 | PCM.HOSP.N ---
Hospitalist Note Family discussed concerns with patient worsening status. Son and sisters are all in agreement and requesting change to DNR-CC and requesting also comfort orders. Will change to DNR-CC status and requested nursing assure all family who need to be present are able prior to comfort orders in case of quick decline.
--- NOTE | 2025-01-05 23:38 | NURSING ---
Pt's son, Walt, at bedside. Spoke with him regarding pt's deteriorating condition and discussed code status. Walt, sister Maya, and this RN spoke on the phone and decided to change patient's code status to a DNR CC. Dr. Maciel notified of conversation and changed orders according to families wishes.
[2025-01-06] VITALS: BP 98/68; PULSE 60; RESP 27; TEMP 35.8; O2SAT 97
[2025-01-06 02:00] VITALS: PULSE 60
[2025-01-06] MEDS: 0.9% Saline Lock 10 ML Syringe IV (03:32)
[2025-01-06 04:00] VITALS: BP 98/74; PULSE 60; RESP 20; TEMP 35.5; O2SAT 67
[2025-01-06 05:12] VITALS: BMI 24.0
[2025-01-06] MEDS: Glycerin/Hypromellose/PEG400 15 ml Bottle 2 DRP EACH EYE (05:13)
--- NOTE | 2025-01-06 07:16 | PCM.PN.HOSP ---
Reason for Visit Chief Complaint: Generalized weakness and light headedness Subjective Subjective Patient was admitted to the intensive care unit after assessment of severe sepsis of unknown origin was made treatment initiated per protocol. IV fluid resuscitation and broad-spectrum antibiotic therapy cultures sent. Family did change patient CODE STATUS from full code to DNR CCA no intubation. Family later downgraded a CODE STATUS to DNR comfort care with consultation placed to hospice. Objective Data Objective Data Vital Signs: Vital Signs Temp Pulse Resp BP Pulse Ox O2 Del Method O2 Flow Rate 96 F L 60 20 H 98/74 67 Non-Rebreather 2 01/06/25 04:00 01/06/25 04:00 01/06/25 04:00 01/06/25 04:00 01/06/25 04:00 01/06/25 04:00 01/06/25 04:00 Oxygen Flow Rate (L/min) 2 Oxygen Delivery Method Non-Rebreather Weight: 63.8 kg Body Mass Index (BMI) 24.0 Intake & Output: Intake and Output for Last 24 Hours 01/04/25 01/05/25 01/06/25 23:59 23:59 23:59 Intake Total 1977.75 / 1977.75 2019 1149.17 / 1149.17 Output Total 200 / 200 200 / 200 125 / 125 Balance 1778.75 / 1778.75 1820 / 1820 1024.17 / 1024.17 Lab / Micro Data 01/05/25 05:03 01/05/25 14:10 Labs: Laboratory Results - last 24 hr 01/05/25 05:03: WBC 11.1 H, RBC 4.80, Hgb 16.3 H, Hct 47.6 H, MCV 99.2 H, MCH 34.0 H, MCHC 34.2, RDW Std Deviation 57.3 H, RDW Coeff of Sharad 16.0 H, Plt Count 35 L*, MPV 12.8 H, Immature Gran % (Auto) 0.400, Neut % (Auto) 93.7 H, Lymph % (Auto) 1.3 L, [place] % (Auto) 4.1, Eos % (Auto) 0.0, Baso % (Auto) 0.5, Absolute Neuts (auto) 10.4 H, Absolute Lymphs (auto) 0.14 L, Nucleated RBC % 0.3, Total Bilirubin 2.37 H, Direct Bilirubin 1.43 H, AST 250 H, ALT 488 H, Alkaline Phosphatase 109 H, Total Protein 5.8 L, Albumin 3.8, Globulin 2.0 L 01/05/25 10:50: Lactic Acid 4.4 H* 01/05/25 13:01: Procalcitonin 0.21 H, TSH 0.782 01/05/25 14:10: PT 29.1 H, INR 2.7, Potassium 5.8 H 01/05/25 16:00: Lactic Acid 3.8 H* Micro: Microbiology 01/05/25 11:24 Mucosa - Nasopharyngeal Coronavirus COVID-19 PCR - Final 01/05/25 11:24 Mucosa - Nasopharyngeal Respiratory Panel (PCR) - Final 01/05/25 12:39 Urine Catheter - Capone Legionella Antigen - Final 01/05/25 12:39 Urine Catheter - [place]one Streptococcus pneumoniae Antigen (M - Final ABG Data ABG results: ABG 01/05/25 11:44 Specimen Type ART Sample Site L Radial pH 7.37 Bicarbonate Actual 13.0 L Total CO2 14 Base Excess -12 L O2 Saturation 97 O2 % 2.0 ABG pCO2 22.7 L ABG pO2 90 Trevor Test Positive O2 Delivery Device Cannula Vent Mode Not entered Radiography Diagnostic Testing: Radiology Impression Chest X-Ray 01/05/25 10:15 IMPRESSION: Since prior study, there has been improved aeration of both lungs. Reading Location: [facility] Abdomen/Pelvis CT 01/05/25 13:19 IMPRESSION: Pleural effusions and pulmonary opacities to be correlated clinically. - Generalized anasarca. - Gastrointestinal findings to be correlated clinically for significance are discussed above in detail. - Small amount of free fluid within the peritoneal cavity. - 3.8 cm right adnexal/ovarian cyst. Further evaluation by ultrasound when clinically appropriate is advised. - Other findings and study limitations discussed above. Reading Location: [id number] Rhythm Strip Rhythm Strip: AV paced rhythm Rate: 60 Physical Exam Narrative GENERAL: Appears fatigued HEENT: Atraumatic; normocephalic EYES; Anicteric, Normal Conjunctiva NECK; supple, normal thyroid, RESPIRATORY: Diminished to auscultation CARDIOVASCULAR: iregular S1 S2, GI: soft, normoactive bowel sounds, : No Renal angle tenderness; EXTREMITIES: No edema, no clubbing, MUSCULOSKELETAL: no muscle wasting NEURO: no lateralizing signs. SKIN: Bruises on upper extremities PSYCH; Flat affect Assessment & Plan Assessment/Plan (1) ASLHI (acute kidney injury): (2) Generalized weakness: (3) Right ankle pain: PLAN: Plan Patient is an 89-year-old lady who presented to the emergency department with progressive generalized weakness as well as lightheadedness. An assessment of possible rheumatoid arthritis flareup involving the ankle was made. Patient was also found to have low platelet count as well as abnormal LFTs admitted to monitored bed for further management 1. Rheumatoid arthritis flareup involving the ankle ? Patient responded to prednisone trial ? 01/05/2025; discontinued prednisone and started hydrocortisone given worsening symptoms 2. Severe sepsis ? Patient was started on broad-spectrum antibiotic therapy cultures sent in addition to IV fluid consultation was placed to aircraft armament mechanic and nephrology. Aggressive measures were however stopped in the middle of the night per family request CODE STATUS changed to DNR CC 3. Abnormal LFTs ? Suspected to be side effect of patient tocilizumab in addition to her low platelet count. Monitoring with daily hepatic function test as well as CBC with differential ? 01/06/2025; discontinued lab draws 4. Thrombocytopenia ? Suspected side effects of tocilizumab. Patient informed plan is to discontinue on discharge and for patient to follow-up with her education specialist for alternative treatment ? 01/05/2025; with patient platelet count not improving decision was made to consult heme-onc ? 01/06/2025; discontinued lab draws 5. Hyperkalemia ? Patient has been started on potassium sparing diuretic?spironolactone this was discontinued patient given Kayexalate repeat K levels ordered ? Consult has been placed to nephrology after demonstration of Kayexalate lab draws were however discontinued after CODE STATUS was changed to DNR comfort care 6. Acute kidney injury with metabolic acidosis ? Patient creatinine from 12/06/2024 was 1.14 her admitting creatinine was 2.15. Patient kidney function improved slightly however did worsen with reinitiation of her diuretic therapy ? 01/06/2025; patient to be started on bicarb drip by nephrology 7. Acute on chronic heart failure with reduced ejection fraction ? 01/04/2025 patient echo from 12/01/2024 demonstrated EF of 35%. Patient was found to be dyspneic this a.m. Chest x-ray ordered additional Lasix given in addition to breathing treatment ?01/05/2025; held on diuretics given worsening kidney function 8. Hyponatremia ? Secondary to diuretic therapy held repeat BMP ordered for a.m. 9. Paroxysmal atrial fibrillation ? Rate controlled on systemic anticoagulation with apixaban held given the fact that patient platelet count is less than 60,000 10. Hypertension ? Blood pressure controlled, home medications continued with dose adjustment as needed 11. Hypothyroidism ? Patient is on levothyroxine home dose continued 12. History of breast cancer s/p mastectomy and chemotherapy ? Follows with oncology, 13. 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 DVT prophylaxis ? Patient is on apixaban which is currently being held given her low platelet count Time spent in the patient's overall evaluation,decision-making process, review of diagnostic data, adjustment of management, discussion with patient's family, other providers, nursing nursing and ancillary staff involved in patient's care documentation, 35 Minutes Charges/Coding Visit Charges Inpatient E&M: 02179 Subs Hosp L2
[2025-01-06 08:30] VITALS: O2SAT 89
[2025-01-06 08:39] VITALS: BP 82/59; PULSE 70; RESP 16; TEMP 35.6; O2SAT 81
--- NOTE | 2025-01-06 09:29 | NURSING ---
Spoke w/ intake (Edith) at Hospice. Took information and will be calling pt's daughter Maya. Will have unit secretary fax information to Hospice per request.
--- NOTE | 2025-01-06 14:04 | PCM.DC.SUM ---
Providers Date of Admission: 01/01/25 Date of Discharge: 01/06/25 Primary Care Physician: Macie Oleary MD Consultations 01/01/25 15:12 Consult: Cardiology Routine Consulting Provider: Austin Marie Reason for Consult: ?pacer malfunction, ?cardio renal EMERGENT Consult: No Notified: Yes Date Notified: 01/01/25 Time Notified: 15:05 Method of Notification: ED Physician Initiated 01/05/25 08:29 Consult: Oncology/Hematology Routine Consulting Provider: [facility]) Reason for Consult: Thrombocytopenia EMERGENT Consult: No Notified: Yes Date Notified: 01/05/25 Time Notified: 08:30 Method of Notification: Verbal 01/05/25 11:14 Consult: Nephrology Routine Consulting Provider: Anna Moreno Reason for Consult: ASHLI with acidosis EMERGENT Consult: No Notified: Yes Date Notified: 01/05/25 Time Notified: 11:14 Method of Notification: Text 01/05/25 13:45 Consult: Filenet Developer / Pulmonary Medicine Routine Consulting Provider: [facility] Reason for Consult: sepsis EMERGENT Consult: No Notified: Yes Date Notified: 01/05/25 Time Notified: 12:34 Method of Notification: Text 01/05/25 22:55 Consult: Hospice / Outpatient Palliative Care Routine Consulting Provider: [facility] Reason for Consult: Want to transition to DNR-CC, comfort focus. EMERGENT Consult: No Notified: Yes Date Notified: 01/05/25 Time Notified: 22:55 Method of Notification: Verbal Reason For Visit: GENERALIZED WEAKNESS, HEART FAILURE Diagnosis Discharge Diagnosis (1) ASHLI (acute kidney injury): Status: Acute Code(s): N17.9 - Acute kidney failure, unspecified (2) Generalized weakness: Status: Acute Code(s): R53.1 - Weakness (3) Right ankle pain: Status: Acute Code(s): M25.571 - Pain in right ankle and joints of right foot Plan Patient is an 89-year-old lady who presented to the emergency department with progressive generalized weakness as well as lightheadedness. An assessment of possible rheumatoid arthritis flareup involving the ankle was made. Patient was also found to have low platelet count as well as abnormal LFTs admitted to monitored bed for further management 1. Rheumatoid arthritis flareup involving the ankle ? Patient responded to prednisone trial ? 01/05/2025; discontinued prednisone and started hydrocortisone given worsening symptoms 2. Severe sepsis secondary to acute cystitis with E. coli ? Patient was started on broad-spectrum antibiotic therapy cultures sent in addition to IV fluid consultation was placed to analytical research program manager and nephrology. Aggressive measures were however stopped in the middle of the night per family request CODE STATUS changed to DNR CC. Patient was transferred to hospice in a facility ? 3. Abnormal LFTs ? Suspected to be side effect of patient tocilizumab in addition to her low platelet count. Monitoring with daily hepatic function test as well as CBC with differential ? 01/06/2025; discontinued lab draws 4. Thrombocytopenia ? Suspected side effects of tocilizumab. Patient informed plan is to discontinue on discharge and for patient to follow-up with her care companion for alternative treatment ? 01/05/2025; with patient platelet count not improving decision was made to consult heme-onc ? 01/06/2025; discontinued lab draws 5. Hyperkalemia ? Patient has been started on potassium sparing diuretic?spironolactone this was discontinued patient given Kayexalate repeat K levels ordered ? Consult has been placed to nephrology after demonstration of Kayexalate lab draws were however discontinued after CODE STATUS was changed to DNR comfort care 6. Acute kidney injury with metabolic acidosis ? Patient creatinine from 12/06/2024 was 1.14 her admitting creatinine was 2.15. Patient kidney function improved slightly however did worsen with reinitiation of her diuretic therapy ? 01/06/2025; patient to be started on bicarb drip by nephrology 7. Acute on chronic heart failure with reduced ejection fraction ? 01/04/2025 patient echo from 12/01/2024 demonstrated EF of 35%. Patient was found to be dyspneic this a.m. Chest x-ray ordered additional Lasix given in addition to breathing treatment ?01/05/2025; held on diuretics given worsening kidney function 8. Hyponatremia ? Secondary to diuretic therapy held repeat BMP ordered for a.m. 9. Paroxysmal atrial fibrillation ? Rate controlled on systemic anticoagulation with apixaban held given the fact that patient platelet count is less than 60,000 10. Hypertension ? Blood pressure controlled, home medications continued with dose adjustment as needed 11. Hypothyroidism ? Patient is on levothyroxine home dose continued 12. History of breast cancer s/p mastectomy and chemotherapy ? Follows with oncology, 13. 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 DVT prophylaxis ? Patient is on apixaban which is currently being held given her low platelet count Time spent in the patient's overall evaluation,decision-making process, review of diagnostic data, adjustment of management, discussion with patient's family, other providers, nursing nursing and ancillary staff involved in patient's care documentation, 35 Minutes Physical Exam Narrative GENERAL: Appears fatigued HEENT: Atraumatic; normocephalic EYES; Anicteric, Normal Conjunctiva NECK; supple, normal thyroid, RESPIRATORY: Diminished to auscultation CARDIOVASCULAR: iregular S1 S2, GI: soft, normoactive bowel sounds, : No Renal angle tenderness; EXTREMITIES: No edema, no clubbing, MUSCULOSKELETAL: no muscle wasting NEURO: no lateralizing signs. SKIN: Bruises on upper extremities PSYCH; Flat affect Weight / BMI Weight Weight: 63.8 kg Body Mass Index (BMI) 24.0 ABG / Lab / Microbiology Data 01/05/25 05:03 01/05/25 14:10 Laboratory: Laboratory Results - last 24 hr 01/05/25 13:01: Procalcitonin 0.21 H, TSH 0.782 01/05/25 14:10: PT 29.1 H, INR 2.7, Potassium 5.8 H 01/05/25 16:00: Lactic Acid 3.8 H* Microbiology: Microbiology 01/05/25 12:39 Urine Catheter - [place] Urine Culture - Preliminary Presumptive E. coli 01/05/25 12:39 Urine Catheter - [place] Legionella Antigen - Final 01/05/25 12:39 Urine Catheter - [place] Streptococcus pneumoniae Antigen (M - Final 01/05/25 11:24 Mucosa - Nasopharyngeal Coronavirus COVID-19 PCR - Final 01/05/25 11:24 Mucosa - Nasopharyngeal Respiratory Panel (PCR) - Final Radiography Diagnostic Testing: Radiology Impression Abdomen/Pelvis CT 01/05/25 13:19 IMPRESSION: Pleural effusions and pulmonary opacities to be correlated clinically. - Generalized anasarca. - Gastrointestinal findings to be correlated clinically for significance are discussed above in detail. - Small amount of free fluid within the peritoneal cavity. - 3.8 cm right adnexal/ovarian cyst. Further evaluation by ultrasound when clinically appropriate is advised. - Other findings and study limitations discussed above. Reading Location: [id number] D/C Instructions DC O2, CPAP, BIPAP Needs Home O2 Discharge instructions: No Meaningful Use Info Meaningful Use Meaningful Use Diagnoses (Choose all that apply): None applicable Discharge Plan Admission Admit Date/Time: 01/01/25 14:38 Attending Provider: Ajith Quiñones Primary Care Provider: Macie Oleary Consulting Providers: Marga Butcher; Saravanan Monzon; Austin Marie; Nabeel Sanches; Timo Bruce; Aden Marquez; Ash Loving; Ajith Christianson; Nino Bryan; Robinson Grossman; Aleyda Wadsworth; John New; Malvin Vee; Cj Harding; Allie Louis; Guillermina Roy; Sabrina Rizvi; Prince,Naresh; Michael Ken; Mahendra Resendiz; Shelly,Saroj; Zamzam Adorno; Wilfredo Carmona; Andrew West; Kvng Lockett; Italia Valladares; Aly Gomez; Anna Moreno; Ajith Knox; Matteo Jonas; Jaime Eisenberg; Alissa Cartagena; Naeem Up; Polo Peck; Dhaval Simpson; Fred Echevarria; Juileth Gutierres NP; Ajith Gar; Dianna Crawford; Miriam Reyes; Candida Brown; Millie Harris TRANSPORTATION PROGRAM DIRECTOR; Shirley Kuhn Discharge Orders/Prescriptions Prescriptions: Discontinued apixaban 2.5 mg tablet 2.5 mg PO BID Qty: 180 3RF levothyroxine [Synthroid] 100 mcg tablet 100 mcg PO QDAY furosemide 40 mg tablet 40 mg PO QDAY PRN (Reason: edema) [place] 162 mg/0.9 mL syringe 162 mg subcut Q7D Patient Comments: [NO ORIGINAL SIG] amiodarone 200 mg tablet 200 mg PO BID Qty: 180 3RF metoprolol tartrate 25 mg tablet 25 mg PO BID Qty: 60 0RF calcium carbonate 200 mg calcium (500 mg) tablet,chewable 1,000 mg PO DAILY@0800 PRN (Reason: indigestion) dapagliflozin propanediol [Farxiga] 10 mg tablet 10 mg PO QAM Qty: 90 3RF Referrals / Follow Up: Macie Oleary MD [Primary Care Provider] - Disposition Disposition (needs filled in before D/C Order can be placed): Hospice in Medical Facility Charges/Coding Visit Charges Inpatient E&M: [id number] Disch Hosp >30min
== END 2025-01-06 17:10 | disposition hospice, inpatient (51) | DRG 871 ==
LOC: ED 14:13 → PCU 14:41 → ICU 01-05 13:11
PROVIDERS: Family Medicine; Internal Medicine Critical Care Medicine; Admitting Provider Internal Medicine; Emergency Provider Surgery; PCP Family Medicine; Visit Provider Internal Medicine
DX: A41.51 Sepsis due to Escherichia coli [E. coli] (principal); I50.23 Acute on chronic systolic (congestive) heart failure; E87.20 Acidosis, unspecified; I44.2 Atrioventricular block, complete; E87.1 Hypo-osmolality and hyponatremia; N17.9 Acute kidney failure, unspecified; N30.00 Acute cystitis without hematuria; D69.6 Thrombocytopenia, unspecified; I48.0 Paroxysmal atrial fibrillation; E86.0 Dehydration; J44.9 Chronic obstructive pulmonary disease, unspecified; M06.071 Rheumatoid arthritis without rheumatoid factor, right ankle and foot; I11.0 Hypertensive heart disease with heart failure; E03.9 Hypothyroidism, unspecified; F32.A Depression, unspecified; I34.0 Nonrheumatic mitral (valve) insufficiency; R65.20 Severe sepsis without septic shock; I25.10 Atherosclerotic heart disease of native coronary artery without angina pectoris; E78.5 Hyperlipidemia, unspecified; F41.9 Anxiety disorder, unspecified; I25.2 Old myocardial infarction; E87.5 Hyperkalemia; Z66 Do not resuscitate; R74.8 Abnormal levels of other serum enzymes; M85.80 Other specified disorders of bone density and structure, unspecified site; R79.89 Other specified abnormal findings of blood chemistry; T39.4X5A Adverse effect of antirheumatics, not elsewhere classified, initial encounter; T50.2X5A Adverse effect of carbonic-anhydrase inhibitors, benzothiadiazides and other diuretics, initial encounter; R53.81 Other malaise; R53.1 Weakness; Z95.1 Presence of aortocoronary bypass graft; Z95.0 Presence of cardiac pacemaker; Z79.01 Long term (current) use of anticoagulants; Z85.3 Personal history of malignant neoplasm of breast; Z92.21 Personal history of antineoplastic chemotherapy; Z90.11 Acquired absence of right breast and nipple; Z79.899 Other long term (current) drug therapy; Z79.890 Hormone replacement therapy
CPT/HCPCS: 36415; 36600; 71045; 71046; 73610; 74177; 76705; 80048; 80053; 80076; 81001; 82550; 82803; 83605; 83690; 83735; 83880; 84100; 84132; 84145; 84439; 84443; 84484; 84550; 85025; 85610; 85652; 85730; 86140; 86200; 86431; 87040; 87086; 87088; 87186; 87449; 87633; 87635; 93005; 94640; 94668; 97110; 97162; 97166; 97530; 97535; 97802; 99285; P9612; Q9967; A4216; J1938; J2405